=== PATIENT | female | born 1955 | race Caucasian/White ===

== ENCOUNTER 2019-12-02 10:49 | Emergency (ER) | payer OTHER ==
--- OUTSIDE RECORDS SUMMARY | 2019-12-02 10:51 | XMS REPORT | Clinical Summary ---
:1955 Author Organization [facility] Address [address] [place] [address] Care Team Providers Name Role Phone Zeinab English JUAN Primary Care Provider Allergies Active Allergy Reactions Severity Noted Date Comments Erythromycin Hives Medium 07/01/2016 Levofloxacin Other (See Comments) High 07/01/2016 Vomitin g and diarrhea Sulfa (Sulfonamide Rash Low 07/01/2016 Antibiotics) Tetracyclines Hives High 07/01/2016 Medications Medication Sig Dispensed Refills Start Date End Date Status ranitidine (ZANTAC) Take 150 mg by mouth 0 Active 150 MG as needed (every 8 capsuleIndications: hours- as Cirrhosis of liver antihistamine by without ascites, PCP). unspecified hepatic cirrhosis type (HCC), Screening for malignant neoplasm Active Problems Problem Noted Date Cirrhosis of liver without ascites 07/01/2016 Last Assessment & Plan: She has compensated cirrhosis diagnosed in March 2016 by MRI. Comprehensive work-up done by Dr. Mccarthy was negative for autoimmune, metabolic or viral causes of the liver diseases. Etiology is likely non-alcoholic fatty liver disease. Her risk factors are obesity and hypertension. S ynthetic function is somewhat preserved with INR 1.1. MELD-Na 9 (03/28/16). This is early for liver transplantation. Cirrhosis education done and resources provided. Portal hypertension 07/01/2016 Last Assessment & Plan: Manifested by splenomegaly on imaging. She does not have varices, ascites or HE. Varices, esophageal 07/01/2016 Last Assessment & Plan: EGD in March 2016 was negative for v arices. Obesity (BMI 35.0-39.9 without comorbidity) 07/01/2016 Last Assessment & Plan: The patient's current BMI is 39.08. Obe sity is an established risk factor for vascular complications (ie coronary iva ry disease, cerebrovascular disease, peripheral vascular disease), osteoarthr itis, pulmonary disease, as well as the development of non-alcoholic fatty liver disease and the risk for non-alcoholic steatohepatitis. We have recommended a structured weight loss program (10% body weight initially), along with dietary mo difications and regular exercise for overall good health and to minimize the risk of obesity-related complications. Constipation 07/01/2016 Last Assessment & Plan: Recommend miralax Immunity status testing 07/01/2016 Last Assessment & Plan: CDC recommends that all patients with chronic liver disease, regardless of etiology, should be immunized to prevent hepatitis A and hepatitis B if they are not already immune. This should be done in ad dition to other age-appropriate vaccines . We will test for immunity to both viruses - vaccine recommendations will follow. Screening for malignant neoplasm 07/01/2016 Last Assessment & Plan: Cirrhosis, regardless of etiology, is a risk factor for hepatocellular carcinoma (HCC), with an annual incidence of 1.5-7%. We recommend surveillance for HCC with abdominal imaging and alphafetoprotein every 6 months. MRI in April 2016 was negative for any suspicious lesions in the liver. AFP 03/28/16 is 4.0. Adrenal mass, left 07/01/2016 Last Assessment & Plan: 3.5 x 2.5 cm focus on the left adrenal g land reported on MRI in April 2016. This could be a left adrenal mass vs a divert iculum from the fundus of the stomach. This is likely benign. We will request the C D and review at the radiology conference. Further recommendations to follow. Family History Medical History Relation Name Comments Diabetes Brother Hypertension Brother Arthritis Brother COPD Brother Diabetes Father Heart disease Father Diabetes Mother Heart disease Mother Cancer Sister Relation Name Status Comments Brother Alive Brother Alive Father Mother Sister Social History Tobacco Use Types Packs/Day Years Used Date Former Smoker Smokeless Tobacco: Never Used Tobacco Cessation: Counseling Given: No Alcohol Use Drinks/Week oz/Week Comments Yes 0 Standard drinks or equivalent 0.0 social last drink 06/15/16 Sex Assigned at Date Recorded Not on file Job Start Date Occupation Industry Not on file Not on file Not on file Travel History Travel Start Travel End No recent travel history available. Last Filed Vital Signs Not on file Plan of Treatment Health Maintenance Due Date Last Done Comments BREAST CANCER SCREENING 1955 COLON CANCER SCREENING COLONOSCOPY 1955 CERVICAL CANCER SCREENING PAP ONLY (Age 21-65) 1975 PNEUMOCOCCAL 65+ LOW/MEDIUM RISK (1 of 2 - PCV13) 2019 INFLUENZA VACCINE (Season Ended) 2020 Results Not on fileafter 12/01/2018 Insurance Payer Benefit Plan / Group Subscriber ID Type Phone A ddress AETNA - MGD CARE AETNA HMO POS QPOS xxxxxxxxx HMO/POS
--- OUTSIDE RECORDS SUMMARY | 2019-12-02 10:51 | XMS REPORT | Clinical Summary ---
:1955 Author Organization [facility] Address [address] [place] [address] Care Team Providers Name Role Phone Nahun Leonard MD Primary Care Provider Allergies Not on File Medications Not on file Active Problems Not on file Social History Tobacco Use Types Packs/Day Years Used Date Never Assessed Sex Assigned at Date Recorded Not on file Job Start Date Occupation Industry Not on file Not on file Not on file Travel History Travel Start Travel End No recent travel history available. 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
--- OUTSIDE RECORDS SUMMARY | 2019-12-02 10:52 | XMS REPORT ---
:1955 Author Organization [employer] Care Team Providers Name Role Phone StewartLalita Provider Role Unavailable Allergies, Adverse Reactions, Alerts Substance Reaction Event Type Tetracycline HCl hives Drug Allergy Levaquin vomiting/diarrhea Drug Allergy Erythromycin vomiting/diarrhea Drug Allergy Problems Problem Type Condition Code Onset Dates Condition Statu s Assessment Hematuria, unspecified R31.9 Activ e Assessment Dysuria R30.0 Active Assessment Urinary tract infection, site not N39.0 Active specified Assessment Encounter for general adult medical Z00.01 Active examination with abnormal findings Problem Urinary tract infection, site not N39.0 Active specified Problem Encounter for general adult medical Z00.01 Active examination with abnormal findings Problem Dysuria R30.0 Active Problem Hematuria, unspecified R31.9 Activ e Problem GERD without esophagitis K21.9 Act rosalba Problem ARAUZ (nonalcoholic steatohepatitis) K75.81 Active Medications Medication Code Code Instructions Start End Date Status Dosage System Date Augmentin [facility] 60364017091 875-125 MG Aug 19, Aug 24, Active 1 table t Orally every 12 2019 2019 hrs Cimetidine [facility] [address]-09 200 MG Orally Active 1 tablet Once a day as needed Results Name Result Date Reference Range Unit Abnormali ty Flag URINALYSIS AUTO W/O SCOPE (96285) ----NIT Positive* 20190819 ----URO 2.0 20190819 ----PROTEIN 2+* 20190819 ----pH 6.5 20190819 ----BLO 2+* 20190819 ----GLUCOSE Negative 20190819 ----KAMILA 3* 20190819 ----BILIRUBIN 1+* 20190819 ----KETONES Trace* 20190819 ----SPECIFIC GRAVITY 1.020 20190819 Summary Purpose eClinicalWorks Submission
--- OUTSIDE RECORDS SUMMARY | 2019-12-02 10:52 | XMS REPORT ---
:1955 Author Organization [employer] Care Team Providers Name Role Phone Lalita Stewart Provider Role Unavailable Allergies No Known Allergies Problems Problem Type Condition Code Onset Dates Condition Statu s Problem Urinary tract infection, site not N39.0 Active specified Problem Encounter for general adult medical Z00.01 Active examination with abnormal findings Problem Dysuria R30.0 Active Problem Hematuria, unspecified R31.9 Activ e Problem GERD without esophagitis K21.9 Act rosalba Problem ARAUZ (nonalcoholic steatohepatitis) K75.81 Active Medications No Known Medications Results No Known Results Summary Purpose [employer]ClinicalWorks Submission
--- OUTSIDE RECORDS SUMMARY | 2019-12-02 10:52 | XMS REPORT ---
:1955 Author Organization [employer] Care Team Providers Name Role Phone Mitzy English Provider Role Unavailable Allergies No Known Allergies Problems Problem Type Condition Code Onset Dates Condition Statu s Assessment Hx: UTI (urinary tract infection) Z87.440 Active Problem Urinary tract infection, site not N39.0 Active specified Problem Encounter for general adult medical Z00.01 Active examination with abnormal findings Problem Acute cystitis with hematuria N30.01 Active Problem Hematuria, unspecified R31.9 Activ e Problem Dysuria R30.0 Active Problem GERD without esophagitis K21.9 Act rosalba Problem ARAUZ (nonalcoholic steatohepatitis) K75.81 Active Medications Medication Code System Code Instructions Start End Date Status Dos age Date Cimetidine [facility] 23474758196 200 MG Orally Active 1 t ablet Once a day as needed Results Name Result Date Reference Range Unit Abnormali ty Flag URINALYSIS AUTO W/O SCOPE (99247) ----NIT NEG 20190910 ----URO 1.0 20190910 ----PROTEIN 1+ 20190910 ----pH 6.0 20190910 ----BLO TR 20190910 ----GLUCOSE NEG 20190910 ----KAMILA NEG 20190910 ----BILIRUBIN 2+ 20190910 ----KETONES TR 20190910 ----SPECIFIC GRAVITY 1.025 20190910 Summary Purpose [employer]ClinicalWorks Submission
--- OUTSIDE RECORDS SUMMARY | 2019-12-02 10:52 | XMS REPORT ---
:1955 Author Organization [employer] Care Team Providers Name Role Phone Mitzy English Provider Role Unavailable Allergies, Adverse Reactions, Alerts Substance Reaction Event Type Tetracycline HCl hives Drug Allergy Levaquin vomiting/diarrhea Drug Allergy Erythromycin vomiting/diarrhea Drug Allergy Problems Problem Type Condition Code Onset Dates Condition Statu s Assessment Acute cystitis with hematuria N30.01 Active Assessment Dysuria R30.0 Active Problem Urinary tract infection, site not N39.0 Active specified Problem Encounter for general adult medical Z00.01 Active examination with abnormal findings Problem Acute cystitis with hematuria N30.01 Active Problem Hematuria, unspecified R31.9 Activ e Problem Dysuria R30.0 Active Problem GERD without esophagitis K21.9 Act rosalba Problem ARAUZ (nonalcoholic steatohepatitis) K75.81 Active Medications Medication Code Code Instructions Start End Status Dosage System Date Date Nitrofurantoin [facility] 32870124837 100 MG Orally Aug 31, Sep 07, Active 1 capsule Macrocrystal twice a day 2019 2019 with fo od or milk Cimetidine ND 09543093418 200 MG Orally Active 1 t ablet Once a day as needed Results Name Result Date Reference Range Unit Abnormali ty Flag Urine Culture, Routine Summary Purpose eClinicalWorks Submission
--- OUTSIDE RECORDS SUMMARY | 2019-12-02 10:52 | XMS REPORT ---
:1955 Author Organization [facility] t Address [address] [place] [address] Care Team Providers Name Role Phone KENROY FORTUNE Unavailable Unavailable Problems Condition Condition Condition Status Onset Resolution Last Treatin g Comments Name Details Category Date Date Treatment Clinician Date Hematuria, Hematuria, Problem Active unspecified unspecified Dysuria Dysuria Problem Active Urinary Urinary Problem Active tract tract infection, infection, site not site not specified specified Encounter Encounter Problem Active for general for general adult adult medical medical examination examination with with abnormal abnormal findings findings GERD GERD Problem Active without without esophagitis esophagitis ARAUZ ARAUZ Problem Active (nonalcohol (nonalcohol ic ic steatohepat steatohepat itis) itis) Acute Acute Problem Active cystitis cystitis with with hematuria hematuria Wheezing Wheezing Problem Active Allergies, Adverse Reactions, Alerts Allergy Name Allergy Status Severity Reaction(s) Onset Inactive Treat ing Comments Type Date Date Clinician Tetracycline Adverse Active hives HCl Reaction Erythromycin Adverse Active vomiting/jocy Reaction rrhea Levaquin Adverse Active vomiting/jocy Reaction rrhea Medications Ordered Filled Start Stop Current Ordering Indication Dosage Frequency Signature Comments Components Medication Medication Date Date Medication? Clinician (SIG) Name Name Albuterol Albuterol Yes Mitzy 1 puff as Sulfate HFA Sulfate HFA 11-03 Hinds needed 00:00: 00 Lactulose Lactulose Yes Mitzy 15 ml 11-02 Hinds 00:00: 00 Cimetidine Cimetidine Yes Mitzy 1 tablet Hinds as needed Encounters Start End Encounter Admission Attending Care Care Encounter Date/Time Date/Time Type Type Clinicians Facility Department ID 2019-11-03 2019-11-03 [id number] 13:20:00 13:20:00 [facility] Medicine 2019-09-10 2019-09-10 [id number] 09:30:00 09:30:00 [facility] 2019-08-31 2019-08-31 Outpatient [facility] 2 [id number] 08:00:00 08:00:00 [facility] 2019-08-24 2019-08-24 Outpatient [facility] 2 [id number] 10:41:00 10:41:00 [facility] 2019-08-19 2019-08-19 Outpatient [facility] 2 [id number] 13:00:00 13:00:00 [facility] Medicine Results Test Description Test Time Test Comments Text Results Atomic Results Result Comments CT, ABDOMEN, 2017-05-02 Referring: FINAL REPORT PATIENT ID: WITHOUT 15:58:[id number] OF THE ABDOMEN CLINICAL HISTORY: HCC screening, adrenal mass TECHNIQUE: CT of the abdomen is performed with and without intravenous contrast administration. This exam wa s performed according to our departmental dose-optimizati on program which includes automated exposure control, adjustment of the mA and/or kV according to patient size and/or use of iterative reconstruction technique. COMPARISON FILM: Outside CT of the abdomen from 08/20/2016 DISCUSSION: LOWER THORAX: Subsegmental bibasilar atelectasis and scarring. HEPATOBILIARY: Cirrhotic morphology of the liver. Farrah n portal vein is patent measur ing 1.5 cm. No concerning liver lesion.PANCREAS: No pancreat ic ductal dilation. No solid pancreatic lesion. SPLEEN: Spleen is enlarged measuring 14 cm in length. ADRENALS: Ther e is a 3 cm left adrenal nodul e which measures 30 Hounsfield units on the precontrast portion of this exam, 39 Hounsfield units on the port al venous phase, and 36 Hounsfi eld units on the five minute del ay. A 15 minute delay was not obtained. Based on these enhancement characteristics, this lesion remains indeterminate. Review of june or outside imaging from 08/20/19 17 suggests an absolute washout of 75%, suggesting that this lesion may represent an adenoma.KIDNEYS: No hydronephrosis or hydrourete r. No solid renal lesion. GI TRACT: No bowel wall thicken ing or distention. PERITONEUM/RETROPERITONEUM: No free fluid or free air.LYMPH NODES: No upper abdominal, retroperitoneal, mesenteric, or pelvic lymphadenopathy.VESSE LS: Abdominal aorta normal in caliber. BONES AND SOFT TISSUES: No destructive osse ous lesion. IMPRESSION: 1. Cirrhosis and splenomegaly without suspicious liver lesion. 2. The 3 cm left adrenal nodule is indetermin ate on the basis of the current examination, however prior outside imaging suggests bennie t this nodule may represent an adenoma. Advise attention on 3-6 month follow-up CT. Recommended including a 15 minute delay series to appropriately assess washout features. Signed: Rosalie Marinelli MDReport Verified Date/Time: 05/02/2017 15:58:35 Reading Location: [facility] B1 C[address]Y [address] [place] dy Reading Room W/PLT COUNT & AUTO DIFFERENTIAL 2016-10-23 17:30:00 Test Item Value Reference Range Comments WHITE BLOOD CELL COUNT (BEAKER) (test code = 775) 4.0 K/ L 4.0-10.0 RED BLOOD CELL COUNT (BEAKER) (test code = 761) 4.15 M/ L 4.00-5.00 HEMOGLOBIN (BEAKER) (test code = 410) 14.6 GM/DL 12.0-15.0 HEMATOCRIT (BEAKER) (test code = 411) 45.7 % 36.0-45.0 MEAN CORPUSCULAR VOLUME (BEAKER) (test code = 753) 110.0 fL 82.0-99.0 MEAN CORPUSCULAR HEMOGLOBIN (BEAKER) (test code = 751) 35.2 pg 27.0-33.0 MEAN CORPUSCULAR HEMOGLOBIN CONC (BEAKER) (test code = 752) 31.9 GM/DL 32.0-36.0 RED CELL DISTRIBUTION WIDTH (BEAKER) (test code = 412) 12.5 % 10.3-14.2 PLATELET COUNT (BEAKER) (test code = 756) 69 K/CU MM 150-43 0 MEAN PLATELET VOLUME (BEAKER) (test code = 754) 8.7 fL 6.5-10.5 NUCLEATED RED BLOOD CELLS (BEAKER) (test code = 413) 0 /100 WBC 0-0 NEUTROPHILS RELATIVE PERCENT (BEAKER) (test code = 429) 58 % LYMPHOCYTES RELATIVE PERCENT (BEAKER) (test code = 430) 27 % MONOCYTES RELATIVE PERCENT (BEAKER) (test code = 431) 9 % EOSINOPHILS RELATIVE PERCENT (BEAKER) (test code = 432) 5 % BASOPHILS RELATIVE PERCENT (BEAKER) (test code = 437) 1 % NEUTROPHILS ABSOLUTE COUNT (BEAKER) (test code = 670) 2.31 K/ L 1.80-8.00 LYMPHOCYTES ABSOLUTE COUNT (BEAKER) (test code = 414) 1.05 K/ L 1.48-4.50 MONOCYTES ABSOLUTE COUNT (BEAKER) (test code = 415) 0.37 K/ L 0.00-1.30 EOSINOPHILS ABSOLUTE COUNT (BEAKER) (test code = 416) 0.21 K/ L 0.00-0.50 BASOPHILS ABSOLUTE COUNT (BEAKER) (test code = 417) 0.02 K/ L 0.00-0.20 0.00ALPHA FETOPROTEIN (AFP), TUMOR [id number] 16:31:00 Test Item Value Reference Range Comments ALPHA-FETOPROTEIN (BEAKER) (test code = 1094) 3.3 ng/mL <1 0.0 Effective 06/14/2014: Reference Range ChangeNew: <10.0 Previous: 0.0-8.0 BASIC METABOLIC [id number] 16:13:00 Test Item Value Reference Range Comments SODIUM (BEAKER) (test 141 meq/L 136-145 code = 381) POTASSIUM (BEAKER) (test 4.0 meq/L 3.5-5.1 code = 379) CHLORIDE (BEAKER) (test 107 meq/L 98-107 code = 382) CO2 (BEAKER) (test code = 25 meq/L 22-29 355) BLOOD UREA NITROGEN 13 mg/dL 7-21 (BEAKER) (test code = 354) CREATININE (BEAKER) (test 0.74 mg/dL 0.57-1.25 code = 358) GLUCOSE RANDOM (BEAKER) 69 mg/dL 70-105 (test code = 652) CALCIUM (BEAKER) (test 8.9 mg/dL 8.4-10.2 code = 697) EGFR (BEAKER) (test code 80 mL/min/1.73 sq m EST IMATED GFR IS NOT = 1092) ACCURATE CREA TININE CLEARANCE IN PRE DICTING GLOMERULAR FILTR ATION RATE. ESTIMATED GFR IS NOT APPLICABLE F OR DIALYSIS PATIENT S. Specimen slightly ictericLIPID [id number] 16:13:00 Test Item Value Reference Range Comments TRIGLYCERIDES (BEAKER) (test code = 540) 77 mg/dL CHOLESTEROL (BEAKER) (test code = 631) 136 mg/dL HDL CHOLESTEROL (BEAKER) (test code = 976) 59 mg/dL LDL CHOLESTEROL CALCULATED (BEAKER) (test code = 62 mg/dL 633) Triglyceride Reference Range: Low Risk <150 Borderline 150-199 High Risk 200-499 Very High Risk >=500Cholesterol Reference Range: Low Risk <200 Borderline 200-239 High Risk >240HDL Cholesterol Reference Range: Low Risk >=60 High Risk <40LDL Cholesterol Reference Range: Optimal <100 Near Optimal 100-129 Borderline 130-159 High 160-189 Very High >=190 Specimen slightly ictericHEPATIC FUNCTION [id number] 16:13:00 Test Item Value Reference Range Comments TOTAL PROTEIN (BEAKER) (test code = 770) 7.1 gm/dL 6.0-8.3 ALBUMIN (BEAKER) (test code = 1145) 3.4 g/dL 3.5-5.0 BILIRUBIN TOTAL (BEAKER) (test code = 377) 1.9 mg/dL 0.2-1 .2 BILIRUBIN DIRECT (BEAKER) (test code = 706) 0.9 mg/dL 0.1- 0.5 ALKALINE PHOSPHATASE (BEAKER) (test code = 346) 108 U/L 40-150 AST (SGOT) (BEAKER) (test code = 353) 44 U/L 5-34 ALT (SGPT) (BEAKER) (test code = 347) 17 U/L 6-55 Specimen slightly ictericGAMMA GLUTAMYL TRANSFERASE (GGT)2016-10-23 16:13:00 Test Item Value Reference Range Comments GAMMA GLUTAMYL TRANSFERASE (BEAKER) (test code = 364) 60 U/L 9-64 Specimen slightly ictericPROTHROMBIN [id number] 16:13:00 Test Item Value Reference Range Comments PROTIME (BEAKER) (test code = 759) 14.4 seconds 11.7-14.7 INR (BEAKER) (test code = 370) 1.1 <=5.9 RECOMMENDED COUMADIN/WARFARIN INR THERAPY RANGESSTANDARD DOSE: 2.0 - 3.0 Includes: PROPHYLAXIS forvenous thrombosis, systemic embolization; TREATMENT for venous thrombosis and/or pulmonary embolus.HIGH RISK: Target INR is 2.5-3.5 for patients with mechanical heart valves.
--- OUTSIDE RECORDS SUMMARY | 2019-12-02 10:52 | XMS REPORT ---
:1955 Author Organization [employer] Care Team Providers Name Role Phone Mitzy English Provider Role Unavailable Allergies, Adverse Reactions, Alerts Substance Reaction Event Type Tetracycline HCl hives Drug Allergy Levaquin vomiting/diarrhea Drug Allergy Erythromycin vomiting/diarrhea Drug Allergy Problems Problem Type Condition Code Onset Dates Condition Statu s Assessment ARAUZ (nonalcoholic steatohepatitis) K75.81 Active Problem Hematuria, unspecified R31.9 Activ e Assessment Wheezing R06.2 Active Problem Acute cystitis with hematuria N30.01 Active Problem Dysuria R30.0 Active Problem Wheezing R06.2 Active Problem GERD without esophagitis K21.9 Act rosalba Problem ARAUZ (nonalcoholic steatohepatitis) K75.81 Active Problem Urinary tract infection, site not N39.0 Active specified Problem Encounter for general adult medical Z00.01 Active examination with abnormal findings Medications Medication Code Code Instructions Start End Date Status Dosage System Date Albuterol ND 55470419749 108 (90 Base) November 03, Active 1 puff as Sulfate HFA MCG/ACT 2020 needed Inhalation every 6 hrs Lactulose ND 03863326573 20 GM/30ML November 02, Active 15 ml Orally Once a 2020 day Cimetidine ND 75384795813 200 MG Orally Active 1 t ablet Once a day as needed Results Name Result Date Reference Range Unit Abnormali ty Flag Ammonia, Plasma ----Ammonia, Plasma 54 20191103 34-178 ug/dL Comp. Metabolic Panel (14) (CMP) ----Sodium 141 20191103 134-144 mmol/L ----BUN/Creatinine Ratio 12 20191103 12-28 ----Chloride 104 04123127 96-106 mmol/L ----Potassium 3.7 20191103 3.5-5.2 mmol/L ----Calcium 8.5 20191103 8.7-10.3 mg/dL L ----Protein, Total 5.6 20191103 6.0-8.5 g/dL L ----Carbon Dioxide, 22 59867915 20-29 mmol/L Total ----A/G Ratio 1.0 80578013 1.2-2.2 L ----eGFR If NonAfricn Am 84 85680670 >59 mL/min/1.73 ----Bilirubin, Total 4.3 09484716 0.0-1.2 mg/dL H ----eGFR If Africn Am 97 53188260 >59 mL/min/1.73 ----Albumin 2.8 51700434 3.8-4.8 g/dL L ----BUN 9 91447462 8-27 mg/dL ----Globulin, Total 2.8 74717922 1.5-4.5 g/dL ----Creatinine 0.75 45328083 0.57-1.00 mg/dL ----ALT (SGPT) 14 62119788 0-32 IU/L ----Glucose 80 79596512 65-99 mg/dL ----Alkaline Phosphatase 80 48433948 39-117 IU/L ----AST (SGOT) 45 65562495 0-40 IU/L H Summary Purpose eClinicalWorks Submission
[2019-12-02 12:08] LABS: Absolute Lymphocytes (CBC) 0.7 K/uL (0.7-4.9); Basophils % 0.5 % (0-1.3); Hematocrit 39.6 % (36.0-45.0); Lymphocytes % 17.9 % (15.3-44.8); MPV 9.4 fL (7.6-11.3); RBC Red Blood Cell Count 3.57 M/uL (3.86-4.86)
[2019-12-02 12:28] LABS: Albumin 2.4 g/dL (3.4-5.0); Bilirubin Direct 2.2 mg/dL (0-0.2); Potassium 3.1 mmol/L (3.5-5.1); Protein, Total 6.8 g/dL (6.4-8.2)
[2019-12-02 12:31] LABS: Bilirubin Total 5.7 mg/dL (0.2-1.0)
[2019-12-02 13:25] LABS: Anisocytosis 1+; Blood Morphology Comment NOTED (NOT SEEN); Platelet Estimate DECR; Urine White Blood Cell Casts OK
--- NOTE | 2019-12-02 13:37 | RAD REPORT ---
EXAM DESCRIPTION: CT - Abdomen Pelvis W Contrast - 12/02/2019 1:14 pm CLINICAL HISTORY: Rectal bleeding;Abd pain COMPARISON: Abdomen W/Wo Contrast dated 08/20/2016 TECHNIQUE: Biphasic, helical CT imaging of the abdomen and pelvis was performed following 100 ml non -ionic IV contrast. Oral contrast was given. All CT scans are performed using dose optimization technique as appropriate and may include automated exposure control or mA/KV adjustment according to patient size. FINDINGS: No suspicious findings in the lung bases. Subpleural fibrotic changes are present. No laurita cardial effusion. Liver is grossly abnormal. Liver is small in size with pronounced liver capsule nodularity. A focal l iver lesion is not identified. No portal vein thrombus. Clean is upper normal in size without a focal lesion. No pancreatic abnormality seen. The small gallbladder is seen. No biliary tree dilatation. Symmetric renal function is seen with no hydronephrosis or suspicious renal mass. No pyelonephritis o r acute parenchymal process. Urinary bladder is mostly contracted precluding assessment. No right adr enal gland abnormality. There is a 3.6 centimeter oval low-density mass in the region of the left adr enal gland. This is probably an adenoma. No change has occurred since 2017. Patient has a large volume of ascites. Numerous dilated veins are seen at the gastroesophageal juncti on and in the central upper abdomen. Distal esophageal diego do not appear thickened. Stomach is decompressed. No acute stomach or small b owel finding seen. There is mild edema in the cecum and ascending colon. Colon is mostly decompressed . No gross: Abnormality seen. Diverticulosis is minimal. No free air or pneumatosis. No mass or bulky lymphadenopathy. Fluid retention is seen in the subcu taneous fatty tissues of the abdomen. No suspicious bony findings. IMPRESSION: Advanced cirrhotic changes in the liver with no focal liver lesion identifiable. Large volume of ascites with numerous varices in the upper abdomen. Right-sided colon wall thickening or edema seen. This could be a metabolic edema related to the under lying cirrhosis and ascites. A right-sided colitis would be possible. An underlying mass lesion is no t seen.
[2019-12-02] MEDS ORDERED: POTASSIUM CL SA 10 MEQ TAB PO ONE (14:17)
--- NOTE | 2019-12-02 14:18 | EDPHYS ---
Physician Documentation [facility] Name: Oleksandr Christian Age: 64 yrs Sex: Female : 1955 Arrival Date: 12/02/2019 Time: 10:51 Bed 5 Private MD: Mitzy English ED Physician Epifanio Rogers HPI: 12/01 15:50 This 64 yrs old Female presents to ER via Wheelchair with complaints of kdr Rectal Bleeding. 15:50 The patient presents to the emergency department with bleeding from the rectum/anus, kdr that is moderate. Onset: The symptoms/episode began/occurred yesterday. Context: the patient has no known special context relating to the rectal area complaint(s), has a known history of hemorrhoids. Modifying factors: The symptoms are alleviated by nothing, The symptoms are aggravated by bowel movement. Associate signs and symptoms: Pertinent positives: lower GI bleeding, Weakness. The patient has not experienced similar symptoms in the past. The patient has not recently seen a physician. Historical: - Allergies: 11:46 Erythromycin; iw 11:46 Levaquin; iw 11:46 Sulfa (Sulfonamide Antibiotics); iw 11:46 TETRACYCLINES; iw - PMHx: 11:46 Anxiety; COPD; Hypertension; iw 11:52 ARAUZ; aa5 - PSHx: 11:46 Tonsillectomy; Hysterectomy; Knee surgery; iw - Immunization history:: Adult Immunizations not up to date. - Social history:: Smoking status: Patient/guardian denies using tobacco, the patient reports quitting approximately 13 years ago. ROS: 15:50 Constitutional: Negative for fever, chills, and weight loss, Eyes: Negative for injury, kdr pain, redness, and discharge, ENT: Negative for injury, pain, and discharge, Neck: Negative for injury, pain, and swelling, Cardiovascular: Negative for chest pain, palpitations, and edema, Respiratory: Negative for shortness of breath, cough, wheezing, and pleuritic chest pain, Back: Negative for injury and pain, : Negative for injury, bleeding, discharge, and swelling, MS/Extremity: Negative for injury and deformity, Skin: Negative for injury, rash, and discoloration, Neuro: Negative for headache, weakness, numbness, tingling, and seizure activity. Psych: Negative for depression, anxiety, suicide ideation, homicidal ideation, and hallucinations, Allergy/Immunology: Negative for hives, rash, and allergies, Endocrine: Negative for neck swelling, polydipsia, polyuria, polyphagia, and marked weight changes, Hematologic/Lymphatic: Negative for swollen nodes, abnormal bleeding, and unusual bruising. 15:50 Abdomen/GI: Positive for abdominal pain, nausea, diarrhea, rectal bleeding, Negative for abdominal cramps, abdominal distension, anorexia, dysphagia, hematemesis, black/tarry stool, bowel incontinence. Exam: 15:50 Constitutional: This is a well developed, well nourished patient who is awake, alert, kdr and in no acute distress. Head/Face: Normocephalic, atraumatic. Eyes: Pupils equal round and reactive to light, extra-ocular motions intact. Lids and lashes normal. Conjunctiva and sclera are non-icteric and not injected. Cornea within normal limits. Periorbital areas with no swelling, redness, or edema. Neck: Trachea midline, no thyromegaly or masses palpated, and no cervical lymphadenopathy. Supple, full range of motion without nuchal rigidity, or vertebral point tenderness. No Meningismus. Chest/axilla: Normal chest wall appearance and motion. Nontender with no deformity. No lesions are appreciated. Cardiovascular: Regular rate and rhythm with a normal S1 and S2. No gallops, murmurs, or rubs. Normal PMI, no JVD. No pulse deficits. Respiratory: Lungs have equal breath sounds bilaterally, clear to auscultation and percussion. No rales, rhonchi or wheezes noted. No increased work of breathing, no retractions or nasal flaring. Back: No spinal tenderness. No costovertebral tenderness. Full range of motion. Skin: Warm, dry with normal turgor. Normal color with no rashes, no lesions, and no evidence of cellulitis. MS/ Extremity: Pulses equal, no cyanosis. Neurovascular intact. Full, normal range of motion. Neuro: Awake and alert, GCS 15, oriented to person, place, time, and situation. Cranial nerves II-XII grossly intact. Motor strength 5/5 in all extremities. Sensory grossly intact. Cerebellar exam normal. Normal gait. Psych: Awake, alert, with orientation to person, place and time. Behavior, mood, and affect are within normal limits. 15:50 Abdomen/GI: Inspection: distension, that is mild, obese Bowel sounds: active, diminished, in all quadrants, Palpation: Firm but generally mildly tender throughout. Vital Signs: 11:42 BP 126 / 57; Pulse 84; Resp 16; Temp 98.4; Pulse Ox 98% on R/A; iw 14:24 BP 126 / 51; Pulse 73; Resp 14; Temp 98.3(O); Pulse Ox 96% on R/A; Pain 0/10; ls4 MDM: 14:18 Patient medically screened. kdr 15:50 Data reviewed: vital signs, nurses notes, lab test result(s), radiologic studies. kdr Counseling: I had a detailed discussion with the patient and/or guardian regarding: the historical points, exam findings, and any diagnostic results supporting the discharge/admit diagnosis, lab results, radiology results, the need for outpatient follow up. 12/01 11:23 Order name: Basic Metabolic Panel; Complete Time: 12:58 kdr 12/01 11:23 Order name: CBC with Diff; Complete Time: 13:51 kdr 12/01 11:23 Order name: Creatinine for Radiology; Complete Time: 12:58 kdr 12/01 11:23 Order name: Hepatic Function; Complete Time: 12:58 kdr 12/01 11:23 Order name: Lipase; Complete Time: 12:58 kdr 12/01 11:23 Order name: Type And Screen; Complete Time: 12:58 kdr 12/01 11:23 Order name: IV Saline Lock; Complete Time: 12:25 kdr 12/01 11:23 Order name: Labs collected and sent; Complete Time: 12:25 kdr 12/01 12:28 Order name: CBC Smear Scan; Complete Time: 13:51 EDMS 12/01 12:58 Order name: CT Abd/Pelvis - IV Contrast Only; Complete Time: 13:51 kdr Administered Medications: 14:14 Drug: Potassium Chloride 40 mEq Route: PO; ls4 Disposition: 12/02/19 14:18 Discharged to Home. Impression: Lower GI Bleeding. - Condition is Stable. - Discharge Instructions: Ascites, Weakness, Rywd-lq-Jeom, Rectal Bleeding, Rnfz-gf-Mktj. - Prescriptions for Flagyl 500 mg Oral Tablet - take 1 tablet by ORAL route every 6 hours for 10 days; 40 tablet. - Medication Reconciliation Form, Thank You Letter, Antibiotic Education form. - Follow up: Mitzy English; When: 2 - 3 days; Reason: If symptoms return, Further diagnostic work-up, Recheck today's complaints, Continuance of care, Re-evaluation by your physician. Follow up: Rowdy Mccarthy MD; When: 2 - 3 days; Reason: If symptoms return, Further diagnostic work-up, Recheck today's complaints, Continuance of care, Re-evaluation by your physician. - Problem is an ongoing problem. - Symptoms are unchanged. Signatures: Dispatcher [employer] EDMS Epifanio Rogers MD MD kdr Lauren Roca RN RN iw Nancy Macedo RN RN aa5 Maria R Cook RN RN ls4 Corrections: (The following items were deleted from the chart) 14:39 14:18 12/02/2019 14:18 Discharged to Home. Impression: Lower GI Bleeding. Condition is ls4 Stable. Forms are Medication Reconciliation Form, Thank You Letter, Antibiotic Education, Prescription Opioid Use. Follow up: Mitzy English; When: 2 - 3 days; Reason: If symptoms return, Further diagnostic work-up, Recheck today's complaints, Continuance of care, Re-evaluation by your physician. Follow up: Rowdy Mccarthy; When: 2 - 3 days; Reason: If symptoms return, Further diagnostic work-up, Recheck today's complaints, Continuance of care, Re-evaluation by your physician. Problem is an ongoing problem. Symptoms are unchanged. kdr
--- NOTE | 2019-12-02 14:18 | ER ---
Nurse's Notes [facility] Name: Oleksandr Christian Age: 64 yrs Sex: Female : 1955 Arrival Date: 12/02/2019 Time: 10:51 Bed 5 Private MD: Mitzy English Diagnosis: Lower GI Bleeding Presentation: 12/01 11:42 Chief complaint: Patient states: hx of diverticulitis and ARAUZ, had bright red blood in iw stool yesterday morning, 3-4 episodes throughout the day, felt faint this morning. Coronavirus screen: Proceed with normal triage. Patient denies a cough. Patient denies shortness of breath or difficulty breathing. Patient denies measured and/or subjective temperature greater than 100.4F prior to today's visit. Patient denies travel on a cruise ship or to a country [facility] currently lists as an affected area. Patient denies contact with known and/or suspected case of COVID-19. Ebola Screen: Patient negative for fever greater than or equal to 101.5 degrees Fahrenheit, and additional compatible Ebola Virus Disease symptoms Patient denies exposure to infectious person. Patient denies travel to an Ebola-affected area in the 21 days before illness onset. No symptoms or risks identified at this time. Initial Sepsis Screen: Does the patient meet any 2 criteria? No. Patient's initial sepsis screen is negative. Does the patient have a suspected source of infection? No. Patient's initial sepsis screen is negative. Risk Assessment: Do you want to hurt yourself or someone else? Patient reports no desire to harm self or others. Onset of symptoms was December 01, 2019. 11:42 Method Of Arrival: Wheelchair iw 11:42 Acuity: GAURI 3 iw Historical: - Allergies: 11:46 Erythromycin; iw 11:46 Levaquin; iw 11:46 Sulfa (Sulfonamide Antibiotics); iw 11:46 TETRACYCLINES; iw - PMHx: 11:46 Anxiety; COPD; Hypertension; iw 11:52 ARAUZ; aa5 - PSHx: 11:46 Tonsillectomy; Hysterectomy; Knee surgery; iw - Immunization history:: Adult Immunizations not up to date. - Social history:: Smoking status: Patient/guardian denies using tobacco, the patient reports quitting approximately 13 years ago. Screenin:50 Abuse screen: Denies threats or abuse. Nutritional screening: No deficits noted. aa5 Tuberculosis screening: No symptoms or risk factors identified. Fall Risk IV access (20 points). Total Seay Fall Scale indicates No Risk (0-24 pts). Assessment: 11:46 Reassessment: Pt currently in restroom . aa5 11:52 Reassessment: Pt placed in bed. Bright red rectal bleeding noted in toilet. . aa5 11:52 General: Appears comfortable, Behavior is calm, cooperative. Pain: Complains of pain in aa5 anus Pain does not radiate. Pain currently is 2 out of 10 on a pain scale. Quality of pain is described as aching, Pain began 1 day ago. Is continuous. Neuro: Level of Consciousness is awake, alert, obeys commands, Oriented to person, place, time, situation. Cardiovascular: Heart tones S1 S2 present Rhythm is regular. Respiratory: Airway is patent Respiratory effort is even, unlabored, Respiratory pattern is regular, symmetrical. GI: Abdomen is distended, Reports constipation, Reports last BM was 4 days ago. Pt states "I had to disimpact myself because I couldn't have a bowel movement". Pt reports bright red rectal bleeding began yesterday, pt states "before yesterday the bleeding was only when I wiped". Pt also reports decreased appetite. Patient currently denies nausea, vomiting. : No signs and/or symptoms were reported regarding the genitourinary system. EENT: No signs and/or symptoms were reported regarding the EENT system. Derm: Skin is dry, Skin is yellow, Skin temperature is warm. Musculoskeletal: Range of motion: intact in all extremities. 13:00 Reassessment: Pt to CT via wheelchair . aa5 14:15 Reassessment: Patient appears in no apparent distress at this time. Patient and/or ls4 family updated on plan of care and expected duration. Pain level reassessed. Patient is alert, oriented x 3, equal unlabored respirations, skin warm/dry/pink. Vital Signs: 11:42 BP 126 / 57; Pulse 84; Resp 16; Temp 98.4; Pulse Ox 98% on R/A; iw 14:24 BP 126 / 51; Pulse 73; Resp 14; Temp 98.3(O); Pulse Ox 96% on R/A; Pain 0/10; ls4 ED Course: 10:51 Patient arrived in ED. ag5 10:51 Mitzy English is Private Physician. ag5 10:53 Epifanio Rogers MD is Attending Physician. kdr 11:28 Nancy Macedo, RN is Primary Nurse. aa5 11:46 Triage completed. iw 11:47 Arm band placed on. iw 11:52 Patient has correct armband on for positive identification. Placed in gown. Bed in low aa5 position. Call light in reach. Side rails up X2. Pulse ox on. NIBP on. 11:52 Initial lab(s) drawn, by me, sent to lab. Inserted saline lock: 20 gauge in right aa5 antecubital area, using aseptic technique. Blood collected. 13:12 CT Abd/Pelvis - IV Contrast Only In Process Unspecified. EDMS 14:05 Report given to FRANCISCA Heck. aa5 14:15 Mitzy English is Referral Physician. kdr 14:15 Rowdy Mccarthy MD is Referral Physician. kdr 14:38 No provider procedures requiring assistance completed. IV discontinued, intact, ls4 bleeding controlled, No redness/swelling at site. Pressure dressing applied. Administered Medications: 14:14 Drug: Potassium Chloride 40 mEq Route: PO; ls4 Outcome: 14:18 Discharge ordered by MD. kdr 14:38 Discharged to home ambulatory. ls4 14:38 Condition: stable 14:38 Discharge instructions given to patient, Instructed on discharge instructions, follow up and referral plans. medication usage, safety practices, Demonstrated understanding of instructions, follow-up care, medications, Prescriptions given X 1. 14:39 Patient left the ED. ls4 Signatures: Dispatcher [employer] EDAL Epifanio Rogers MD MD kdr Lauren Roca RN RN iw Nancy Macedo, RN RN aa5 Maria R Cook RN RN ls4 Flako Tang ag5 Corrections: (The following items were deleted from the chart) 11:47 11:42 Chief complaint: Patient states: hx of diverticulitis and ARAUZ, had bright red iw blood in stool yesterday morning, 3-4 BM with blood throughout the day, felt faint this morning iw 13:56 11:52 Reassessment: Pt placed in bed. . aa5 aa5
[2019-12-03 02:55] VITALS: BP 126/51; TEMP 98.3; O2SAT 96
== END 2019-12-02 14:39 | disposition home or self-care (01) ==
LOC: ER 10:49
DX: K62.5 Hemorrhage of anus and rectum (principal); R53.1 Weakness; I10 Essential (primary) hypertension; Z88.1 Allergy status to other antibiotic agents; Z88.2 Allergy status to sulfonamides; Z88.3 Allergy status to other anti-infective agents
CPT/HCPCS: 85025; 80048; 36415; 86900; 86850; 86901; 80076; 83690; 74177; 99284; Q9967

== ENCOUNTER 2019-12-13 09:25 | Day surgery (SDC) | payer OTHER ==
[2019-12-13 10:18] VITALS: BMI 36.6
--- OUTSIDE RECORDS SUMMARY | 2019-12-13 10:39 | XMS REPORT | Clinical Summary ---
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
--- OUTSIDE RECORDS SUMMARY | 2019-12-13 10:39 | XMS REPORT | Clinical Summary ---
:1955 Author Organization [facility] Address [address] [place] [address] Care Team Providers Name Role Phone Zeinab [...] Signs Not on file Plan of Treatment Date Type Specialty Care Team Description 12/15/2019 Office Visit Hepatology Health Maintenance Due Date Last Done Comments BREAST CANCER SCREENING 1955 COLON CANCER SCREENING COLONOSCOPY 1955 CERVICAL CANCER SCREENING PAP ONLY (Age 21-65) 1975 PNEUMOCOCCAL 65+ LOW/MEDIUM RISK (1 of 2 - PCV13) 2019 INFLUENZA VACCINE (Season Ended) 2020 Results Not on fileafter 12/12/2018 Insurance Payer Benefit Plan / Subscriber ID Type Phone Address Group [employer] - [employer] C[employer] A[employer] HMO POS xxxxxxxxx HMO/POS QPOS AET[employer] - MEDICARE AETNA MEDICARE xxxxxxxx [phone] [address] [place] [address]
--- OUTSIDE RECORDS SUMMARY | 2019-12-13 10:40 | XMS REPORT ---
[...] End Status Dosage System Date Date Nitrofurantoin [facility] 75540229286 100 MG Orally Aug 31, Sep 07, Active 1 capsule Macrocrystal twice a day 2019 2019 with fo od or milk Cimetidine ND 34391536228 200 MG Orally Active 1 t ablet Once a day as needed Results Name Result Date Reference Range Unit Abnormali ty Flag Urine Culture, Routine Summary Purpose eClinicalWorks Submission
--- OUTSIDE RECORDS SUMMARY | 2019-12-13 10:40 | XMS REPORT ---
[...] End Date Status Dos age Date Cimetidine [facility] 42581013151 200 MG Orally Active 1 t ablet Once a day as needed Results Name Result Date Reference Range Unit Abnormali ty Flag URINALYSIS AUTO W/O SCOPE (71337) ----NIT NEG 20190910 ----URO 1.0 20190910 ----PROTEIN 1+ 20190910 ----pH 6.0 20190910 ----BLO TR 20190910 ----GLUCOSE NEG 20190910 ----KAMILA NEG 20190910 ----BILIRUBIN 2+ 20190910 ----KETONES TR 20190910 ----SPECIFIC GRAVITY 1.025 20190910 Summary Purpose eClinicalWorks Submission
--- OUTSIDE RECORDS SUMMARY | 2019-12-13 10:40 | XMS REPORT ---
[...] End Date Status Dosage System Date Augmentin [facility] [id number] 875-125 MG Aug 19, Aug 24, Active 1 table t Orally every 12 2019 2019 hrs Cimetidine [facility] [address]-89 200 MG Orally Active 1 tablet Once a day as needed Results Name Result Date Reference Range Unit Abnormali ty Flag URINALYSIS AUTO W/O SCOPE (11336) ----NIT Positive* 20190819 ----URO 2.0 20190819 ----PROTEIN 2+* 20190819 ----pH 6.5 20190819 ----BLO 2+* 20190819 ----GLUCOSE Negative 20190819 ----KAMILA 3* 20190819 ----BILIRUBIN 1+* 20190819 ----KETONES Trace* 20190819 ----SPECIFIC GRAVITY 1.020 20190819 Summary Purpose eClinicalWorks Submission
--- OUTSIDE RECORDS SUMMARY | 2019-12-13 10:40 | XMS REPORT ---
:1955 Author Organization [facility] t Address [address] [place] [address] Care Team Providers Name Role Phone Nahun Leonard MD Primary Care Physician KENROY FORTUNE Attending Clinician Unavailable Problems Condition Condition Condition Status Onset Resolution Last Treating Co mments Source Name Details Category Date Date Treatment Clinician Date Hematuria, Hematuria, Problem Active [facility] unspecifie unspecifie Fe kes [facility] Dysuria Dysuria Problem [facility] Urinary Urinary Problem Active [facility] tract tract [facility] - infection, infection, Me moria site not site not l specified specified Outp ati ent Clinics Encounter Encounter Problem Active [facility] for for [facility] - general general [facility] adult adult l medical medical Outpati examinatio examinatio en t n with n with Clinics abnormal abnormal findings findings GERD GERD Problem Active [facility] without without [facility] - esophagiti esophagiti Me moria s s l Outpati ent Clinics ARAUZ ARAUZ Problem Active [facility] (nonalcoho (nonalcoho Fe kes - lic lic Memoria steatohepa steatohepa l titis) titis) Outpati ent Clinics Acute Acute Problem Active [facility] cystitis cystitis [facility] - with with [facility] hematuria hematuria l Outpati ent Clinics Wheezing Wheezing Problem [facility] Allergies, Adverse Reactions, Alerts Allergy Allergy Status Severity Reaction(s) Onset Inactive Treating Comm ents Source Name Type Date Date Clinician Tetracyc Adverse Active hives [facility] line HCl Reaction [facility] Erythrom Adverse Active vomiting/jocy [facility] ycin Reaction rrhea [facility] Levaquin Adverse Active vomiting/jocy [facility] Reaction rrhea [facility] Social History Social Habit Start Date Stop Date Quantity Comments Source Sex Assigned At [facility] Medications Ordered Filled Start Stop Current Ordering Indication Dosage Frequency Signature Comments Components Source Medication Medication Date Date Medication? Clinician (SIG) Name Name Albuterol Albuterol Yes Mitzy [address] [facility] Sulfate HFA Sulfate HFA 4-09 [place] needed [facility] - [facility]: [facility] 00 [facility] Lactulose Lactulose Yes Mitzy [address] 4-08 [place] [facility] - [facility] 00 [facility]ics Cimetidine Cimetidine Yes Mitzy [address] [facility] [place] as needed [facility] Procedures This patient has no known procedures. Plan of Care Planned Activity Planned Date Details Comments Source Future Scheduled 2020-02-26 INFLUENZA VACCINE [facility] Test 00:00:00 [code = INFLUENZA VACCINE] Future Scheduled 2019 65+ PNEUMOCOCCAL [facility] Test 00:00:00 VACCINE (1 of 2 - PCV13) [code = 65+ PNEUMOCOCCAL VACCINE (1 of 2 - PCV13)] Future Scheduled 2004 BREAST CANCER [facility] Test 00:00:00 SCREENING [code = BREAST CANCER SCREENING] Future Scheduled 2004 COLONOSCOPY SCREENING [facility] Test 00:00:00 [code = COLONOSCOPY SCREENING] Future Scheduled 2004 SHINGLES VACCINES (#1) [facility] Test 00:00:00 [code = SHINGLES VACCINES (#1)] Future Scheduled [facility] malignant neoplasm of cervix (procedure) [code = 334800375] Encounters Start End Encounter Admission Attending Care Care Encounter Source Date/Time Date/Time Type Type Clinicians Facility Department ID 2019-11-03 2019-11-03 Outpatient Rafia Sanford [id number] [facility] 13:20[facility]00 13:20:00 [facility] Medicine [facility] 2019-09-10 2019-09-10 Outpatient Rafia Sanford [id number] [address] 09[facility]30[facility]00 09:30:00 [facility] 2019-08-31 2019-08-31 Outpatient Rafia Moratayat [id number] 08:00:00 08:00:00 [facility] 2019-08-24 2019-08-24 Outpatient Rafia Moratayat [id number] [address] 10:41:00 10:41:00 [facility] 2019-08-19 2019-08-19 Outpatient Rafia Moratayat [id number] [address] 13:00:00 13:00:00 [facility] Results Test Description Test Time Test Comments Results Result Nicola chrissie Comments CT, ABDOMEN, 2017-05-02 Referring: FINAL REPORT PATIENT WITHOUT 15:58:00 [facility] ID: [id number] CT OF THE ABDOMEN CLINICAL HISTORY: HCC screening, adrenal mass TECHNIQUE: CT of the abdomen is performed with and without intravenous contrast administration. This exam was performed according to our departmental dose-optimization program which includes automated exposure control, adjustment of the mA and/or kV according to patient size and/or use of iterative reconstruction technique. COMPARISON FILM: Outside CT of the abdomen from 08/20/2016 DISCUSSION: LOWER THORAX: Subsegmental bibasilar atelectasis and scarring. HEPATOBILIARY: Cirrhotic morphology of the liver. Main portal vein is patent measuring 1.5 cm. No concerning liver lesion.PANCREAS: No pancreatic ductal dilation. No solid pancreatic lesion. SPLEEN: Spleen is enlarged measuring 14 cm in length. ADRENALS: There is a 3 cm left adrenal nodule which measures 30 Hounsfield units on the precontrast portion of this exam, 39 Hounsfield units on the portal venous phase, and 36 Hounsfield units on the five minute delay. A 15 minute delay was not obtained. Based on these enhancement characteristics, this lesion remains indeterminate. Review of prior outside imaging from 08/20/2016 suggests an absolute washout of 75%, suggesting that this lesion may represent an adenoma.KIDNEYS: No hydronephrosis or hydroureter. No solid renal lesion. GI TRACT: No bowel wall thickening or distention. PERITONEUM/RETROPERI TONEUM: No free fluid or free air.LYMPH NODES: No upper abdominal, retroperitoneal, mesenteric, or pelvic lymphadenopathy.VESS ELS: Abdominal aorta normal in caliber. BONES AND SOFT TISSUES: No destructive osseous lesion. IMPRESSION: 1. Cirrhosis and splenomegaly without suspicious liver lesion. 2. The 3 cm left adrenal nodule is indeterminate on the basis of the current examination, however prior outside imaging suggests that this nodule may represent an adenoma. Advise attention on 3-6 month follow-up CT. Recommended including a 15 minute delay series to appropriately assess washout features. Signed: Sohail Marinelli MDReport Verified Date/Time: 05/02/2017 15:58:35 Reading Location: [facility] C013Y CT Body Reading Room W/PLT COUNT & AUTO DIFFERENTIAL 2016-10-23 17:30:00 Test Item Value Reference Range Interpretation Comme nts WHITE BLOOD CELL COUNT (BEAKER) (test code = 775) 4.0 K/ L 4.0- 10.0 RED BLOOD CELL COUNT (BEAKER) (test code = 761) 4.15 M/ L 4.00-5 .00 HEMOGLOBIN (BEAKER) (test code = 410) 14.6 GM/DL 12.0-15.0 HEMATOCRIT (BEAKER) (test code = 411) 45.7 % 36.0-45.0 H MEAN CORPUSCULAR VOLUME (BEAKER) (test code = 753) 110.0 fL 82. 0-99.0 H MEAN CORPUSCULAR HEMOGLOBIN (BEAKER) (test code = 751) 35.2 pg 27.0-33.0 H MEAN CORPUSCULAR HEMOGLOBIN CONC (BEAKER) (test code = 752) 31.9 GM/DL 32.0-36.0 L RED CELL DISTRIBUTION WIDTH (BEAKER) (test code = 412) 12.5 % 10.3-14.2 PLATELET COUNT (BEAKER) (test code = 756) 69 K/CU MM 150-430 L MEAN PLATELET VOLUME (BEAKER) (test code = 754) 8.7 fL 6.5-10 .5 NUCLEATED RED BLOOD CELLS (BEAKER) (test code = 413) 0 /100 WBC 0 -0 NEUTROPHILS RELATIVE PERCENT (BEAKER) (test code = [...] code = 414) 1.05 K/ L 1.48-4.50 L MONOCYTES ABSOLUTE COUNT (BEAKER) (test code = 415) 0.37 K/ L 0. 00-1.30 EOSINOPHILS ABSOLUTE COUNT (BEAKER) (test code = 416) 0.21 K/ L 0.00-0.50 BASOPHILS ABSOLUTE COUNT (BEAKER) (test code = 417) 0.02 K/ L 0. 00-0.20 0.00ALPHA FETOPROTEIN (AFP), TUMOR [id number] 16:31:00 Test Item Value Reference Range Interpretation Comments ALPHA-FETOPROTEIN (BEAKER) (test 3.3 ng/mL <10.0 code = 1094) Effective 06/14/2014: Reference Range ChangeNew: <10.0 Previous: 0.0-8.0 BASIC METABOLIC [id number] 16:13:00 Test Item Value Reference Range Interpretation Comments SODIUM (BEAKER) 141 meq/L 136-145 (test code = 381) POTASSIUM (BEAKER) 4.0 meq/L 3.5-5.1 (test code = 379) CHLORIDE (BEAKER) 107 meq/L 98-107 (test code = 382) CO2 (BEAKER) (test 25 meq/L 22-29 code = 355) BLOOD UREA NITROGEN 13 mg/dL 7-21 (BEAKER) (test code = 354) CREATININE (BEAKER) 0.74 mg/dL 0.57-1.25 (test code = 358) GLUCOSE RANDOM 69 mg/dL 70-105 L (BEAKER) (test code = 652) CALCIUM (BEAKER) 8.9 mg/dL 8.4-10.2 (test code = 697) EGFR (BEAKER) (test 80 mL/min/1.73 ESTIMA JERAMY GFR IS code = 1092) sq m NOT ACCURATE CREATININE CLEARANCE IN PREDICTING GLOMERULAR FILTRATION RATE . ESTIMATED GFR I S NOT APPLICABLE FOR DIALYSIS PATIEN TS. Specimen slightly ictericLIPID [id number] 16:13:00 Test Item Value Reference Range Interpretation Comments TRIGLYCERIDES (BEAKER) (test code = 77 mg/dL 540) CHOLESTEROL (BEAKER) (test code = 136 mg/dL 631) HDL CHOLESTEROL (BEAKER) (test code 59 mg/dL = 976) LDL CHOLESTEROL CALCULATED (BEAKER) 62 mg/dL (test code = 633) Triglyceride Reference Range: Low Risk <150 Borderline 150-199 High Risk 200-499 Very High Risk >=500Cholesterol Reference Range: Low Risk <200 Borderline 200-239 High Risk >240HDL Cholesterol Reference Range: Low Risk >=60 High Risk <40LDL Cholesterol Reference Range: Optimal <100 Near Optimal 100-129 Borderline 130-159 High 160-189 Very High >=190 Specimen slightly ictericHEPATIC FUNCTION [id number] 16:13:00 Test Item Value Reference Range Interpretation Comments TOTAL PROTEIN (BEAKER) (test code = 7.1 gm/dL 6.0-8.3 770) ALBUMIN (BEAKER) (test code = 1145) 3.4 g/dL 3.5-5.0 L BILIRUBIN TOTAL (BEAKER) (test code 1.9 mg/dL 0.2-1.2 H = 377) BILIRUBIN DIRECT (BEAKER) (test 0.9 mg/dL 0.1-0.5 H code = 706) ALKALINE PHOSPHATASE (BEAKER) (test 108 U/L 40-150 code = 346) AST (SGOT) (BEAKER) (test code = 44 U/L 5-34 H 353) ALT (SGPT) (BEAKER) (test code = 17 U/L 6-55 347) Specimen slightly ictericGAMMA GLUTAMYL TRANSFERASE (GGT)2016-10-23 16:13:00 Test Item Value Reference Range Interpretation Comments GAMMA GLUTAMYL TRANSFERASE (BEAKER) 60 U/L 9-64 (test code = 364) Specimen slightly ictericPROTHROMBIN [id number] 16:13:00 Test Item Value Reference Range Interpretation Comments PROTIME (BEAKER) (test code = 14.4 seconds 11.7-14.7 759) INR (BEAKER) (test code = 370) 1.1 <=5.9 RECOMMENDED COUMADIN/WARFARIN INR THERAPY RANGESSTANDARD DOSE: 2.0 - 3.0 Includes: PROPHYLAXIS forvenous thrombosis, systemic embolization; TREATMENT for venous thrombosis and/or pulmonary embolus.HIGH RISK: Target INR is 2.5-3.5 for patients with mechanical heart valves.
--- OUTSIDE RECORDS SUMMARY | 2019-12-13 10:41 | XMS REPORT ---
[...] Date Status Dosage System Date Albuterol ND 09319099048 108 (90 Base) November 03, Active 1 puff as Sulfate HFA MCG/ACT 2020 needed Inhalation every 6 hrs Lactulose ND 20896674968 20 GM/30ML November 02, Active 15 ml Orally Once a 2020 day Cimetidine ND 33038560051 200 MG Orally Active 1 t ablet Once a day as needed Results Name Result Date Reference Range Unit Abnormali ty Flag Ammonia, Plasma ----Ammonia, Plasma 54 20191103 34-178 ug/dL Comp. Metabolic Panel (14) (CMP) ----Sodium 141 20191103 134-144 mmol/L ----BUN/Creatinine Ratio 12 20191103 12-28 ----Chloride 104 06393688 96-106 mmol/L ----Potassium 3.7 20191103 3.5-5.2 mmol/L ----Calcium 8.5 20191103 8.7-10.3 mg/dL L ----Protein, Total 5.6 20191103 6.0-8.5 g/dL L ----Carbon Dioxide, 22 48843068 20-29 mmol/L Total ----A/G Ratio 1.0 17102659 1.2-2.2 L ----eGFR If NonAfricn Am 84 81003192 >59 mL/min/1.73 ----Bilirubin, Total 4.3 35208306 0.0-1.2 mg/dL H ----eGFR If Africn Am 97 25063540 >59 mL/min/1.73 ----Albumin 2.8 75876991 3.8-4.8 g/dL L ----BUN 9 03672653 8-27 mg/dL ----Globulin, Total 2.8 74363264 1.5-4.5 g/dL ----Creatinine 0.75 58950396 0.57-1.00 mg/dL ----ALT (SGPT) 14 65448713 0-32 IU/L ----Glucose 80 74683369 65-99 mg/dL ----Alkaline Phosphatase 80 87636328 39-117 IU/L ----AST (SGOT) 45 09102504 0-40 IU/L H Summary Purpose eClinicalWorks Submission
[2019-12-13] MEDS ORDERED: ALBUMIN HUMAN 25% 300 ML IV ONE (12:09)
--- NOTE | 2019-12-13 12:39 | RAD REPORT ---
EXAM DESCRIPTION: US - Paracentesis Proc Guidance - 12/13/2019 10:51 am CLINICAL HISTORY: Ascites COMPARISON: None. TECHNIQUE: The patient presents for ultrasound-guided paracentesis. The procedure, risks and altern atives were discussed with the patient in detail. Oral and written consent were obtained. Time out p rocedure was performed. The patient had no contraindicated allergy or medication history. PT, INR va lues within acceptable limits. Preliminary sonographic evaluation identified right lower quadrant access site. The skin and deeper tissues were anesthetized with 1 percent lidocaine. Under direct sonographic visualization, a parace ntesis catheter was advanced into the peritoneal cavity. Approximately 10 mL of ascites retained for requested laboratory studies. Large volume drainage was initiated. Approximately 6.5 liters of ascite s removed. At the conclusion of the procedure, catheter was withdrawn and a bandage placed at the puncture site. Postprocedure care and precaution instructions were given to the patient. Patient was transferred t o same-day surgery for postprocedure monitoring and albumin infusion as requested by the referring ysician. IMPRESSION: Ultrasound-guided paracentesis as detailed.
[2019-12-13 14:13] VITALS: BP 99/37; TEMP 97; O2SAT 99
[2019-12-13 14:19] LABS: Body Fluid WBC 103 /mm^3
[2019-12-13 14:27] LABS: Appearance CLEAR (CLEAR); Body Fluid Source PERITONEAL; Color of fluid Yellow (COLORLESS)
== END 2019-12-13 13:15 | disposition home or self-care (01) ==
LOC: DS 09:25
PROVIDERS: ATTEND Internal Medicine Gastroenterology
PROC: 0W9G30Z Drainage of Peritoneal Cavity with Drainage Device, Percutaneous Approach (ICD-10-PCS; principal; 2019-12-13)
DX: K70.31 Alcoholic cirrhosis of liver with ascites (principal); K70.0 Alcoholic fatty liver; K74.69 Other cirrhosis of liver; R93.3 Abnormal findings on diagnostic imaging of other parts of digestive tract
CPT/HCPCS: 87070; 36415; 89050; 96365; 49083; 96366; P9047

== ENCOUNTER 2020-01-14 10:17 | Emergency (ER) | payer OTHER ==
--- OUTSIDE RECORDS SUMMARY | 2020-01-14 10:20 | XMS REPORT | Clinical Summary ---
:1955 Author Organization [facility] Address [address] [place] [address] Care Team Providers Name Role Phone Nahun [...] INFLUENZA VACCINE 02/26/2020 Results Not on fileafter 01/13/2019 Advance Directives For more information, please contact: [phone] Type Date Recorded Patient Zanjero Explanati on Advance Directives, Living Will and Medical Power of Extractions Technologist
--- OUTSIDE RECORDS SUMMARY | 2020-01-14 10:21 | XMS REPORT | Clinical Summary ---
:1955 Author Organization [facility] Address [address] [place] [address] Care Team Providers Name Role Phone Zeinab English JUAN Primary Care Provider Allergies Active Allergy Reactions Severity Noted Date Comments Erythromycin Hives Medium 07/01/2016 Levofloxacin Other (See Comments) High 07/01/2016 Vomitin g and diarrhea Sulfa (Sulfonamide Rash Low 07/01/2016 Antibiotics) Tetracyclines Hives High 07/01/2016 Medications Medication Sig Dispensed Refills Start Date End Date Status ranitidine (ZANTAC) Take 150 mg by 0 Active 150 MG mouth as needed capsuleIndications: (every 8 hours- as Cirrhosis of liver antihistamine by without ascites, PCP). unspecified hepatic cirrhosis type (HCC), Screening for malignant neoplasm furosemide (LASIX) 20 Take 40 mg by mouth 0 Active MG tablet 2 (two) times daily . spironolactone Take 25 mg by mouth 0 Active (ALDACTONE) 25 MG daily. tablet calcitrioL Take 0.5 mcg by 0 Act rosalba (ROCALTROL) 0.5 MCG mouth daily. capsule Active Problems Problem Noted Date Elevated serum creatinine 01/11/2020 Other ascites 01/11/2020 Cirrhosis of liver without ascites 07/01/2016 Last [...] the radiology conference. Further recommendations to follow. Encounters Date Type Specialty Care Team Description 01/07/2020 Abstract Transplant Cary Talley Hepatology R, RN 01/07/2020 Orders Only Transplant Cary Talley Screening for malignant neoplasm (Primary Dx); Hepatology R, RN Encounter for p re-transplant evaluation for liver transplant; Left adrenal ma ss (HCC); 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, unspecified hepatic cirrhosis type (HCC); Screening for e ndocrine, nutritional, metabolic and immunity disorder; Immunity status testing; Encounter for s creening mammogram for malignant neoplasm of breast ; Liver disease, unspecified ; Abnormal findin g of blood chemistry, unspecified ; Other abnormal tumor markers ; Encounter for s creening for other viral diseases ; Asymptomatic me nopausal state ; Encounter for p reprocedural cardiovascular examination 01/04/2020 Abstract Transplant Rito Saini Hepatology Ildefonso Spencer MD 01/03/2020 Office Visit Hepatology Sean, 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, unspecified hepatic cirrhosis type (HCC) (Primary Dx); Mike Armando Portal hypert ension ; Secondary esophageal varices without ble eding (HCC); Kadie Larry Obesity (BMI 35.0-39.9 without comorbidity); [place], [employer] Adrenal mass, l eft ; Screening for m alignant neoplasm; Elevated serum creatinine; Other ascites 12/31/2019 Telephone Hepatology Dai Healy MA 12/21/2019 Documentation Hepatology Kadie Larry FNP 12/17/2019 Abstract Hepatology Ivanna Healy MA 12/16/2019 Abstract Hepatology Janna Aparicio RN 12/16/2019 Abstract Hepatology Janna Aparicio RN 12/16/2019 Abstract Hepatology Janna Aparicio RN 12/15/2019 Audio - Telemedicine Hepatology Kadie Larry Benny l hypertension (Primary Dx); 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 Last Filed Vital Signs Vital Sign Reading Time Taken Blood Pressure 112/71 01/03/2020 1:45 PM CDT Pulse 94 01/03/2020 1:45 PM CDT Temperature 36.4 C (97.5 F) 01/03/2020 1:45 PM CDT Respiratory Rate 18 01/03/2020 1:45 PM CDT Oxygen Saturation 97% 01/03/2020 1:45 PM CDT Inhaled Oxygen Concentration - - Weight 93 kg (205 lb) 01/03/2020 1:45 PM CDT Height 162.6 cm (5' 4") 01/03/2020 1:45 PM CDT Body Mass Index 35.19 01/03/2020 1:45 PM CDT Plan of Treatment Date Type Specialty Care Team Description 04/07/2020 Office Visit Hepatology Health Maintenance Due Date Last Done Comments BREAST CANCER SCREENING 1955 COLON CANCER SCREENING COLONOSCOPY 1955 CERVICAL CANCER SCREENING PAP ONLY (Age 21-65) 1975 PNEUMOCOCCAL 65+ LOW/MEDIUM RISK (1 of 2 - PCV13) 2019 Medicare IPPE (WELCOME TO MEDICARE) 07/28/2019 INFLUENZA VACCINE (Season Ended) 2020 Procedures Procedure Name Priority Date/Time Associated Diagnosis Comme nts CBC W/PLT COUNT & Routine 01/03/2020 2:34 Cirrhosis of liver Results for this AUTO DIFFERENTIAL PM CDT without ascites, proced ure are in unspecified hepatic the resu lts cirrhosis type (HCC) section . ALPHA FETOPROTEIN Routine 01/03/2020 2:34 Cirrhosis of liver Results for this (AFP), TUMOR MARKER PM CDT without ascites, proc edure are in unspecified hepatic the resu lts cirrhosis type (HCC) section . PROTHROMBIN TIME/INR Routine 01/03/2020 2:34 Cirrhosis of gerber er Results for this PM CDT without ascites, procedure a re in unspecified hepatic the resu lts cirrhosis type (HCC) section . CBC W/PLT COUNT & Routine 01/03/2020 2:34 Cirrhosis of liver Results for this AUTO DIFFERENTIAL PM CDT without ascites, proced ure are in unspecified hepatic the resu lts cirrhosis type (HCC) section . HEPATIC FUNCTION Routine 01/03/2020 2:34 Cirrhosis of liver R esults for this PANEL PM CDT without ascites, procedure a re in unspecified hepatic the resu lts cirrhosis type (HCC) section . BASIC METABOLIC PANEL Routine 01/03/2020 2:34 Cirrhosis of li sloan Results for this (7) PM CDT without ascites, procedure a re in unspecified hepatic the resu lts cirrhosis type (HCC) section . after 01/13/2019 Results CBC with platelet count + automated diff (01/03/2020 2:34 PM CDT) WBC 4.4 3.5 - 10.5 K/L [facility] RBC 2.41 (L) 3.93 - 5.22 M/L [facility] Hemoglobin 9.6 (L) 11.2 - 15.7 GM/DL [facility] Hematocrit 28.9 (L) 34.1 - 44.9 % [facility] MCV 119.9 (H) 79.4 - 94.8 fL [facility] MCH 39.8 (H) 25.6 - 32.2 pg [facility] MCHC 33.2 32.2 - 35.5 GM/DL [facility] RDW 17.4 (H) 11.7 - 14.4 % [facility] Platelets 93 (L) 150 - 450 K/CU MM [facility] MPV 9.9 9.4 - 12.3 fL [facility] nRBC 0 0 - 0 /100 WBC [facility] % Neutros 59 % [facility] % Lymphs 21 % [facility] % Monos 11 % [facility] % Eos 7 % [facility] % Baso 1 % [facility] # Neutros 2.60 1.56 - 6.13 K/L [facility] # Lymphs 0.91 (L) 1.18 - 3.74 K/L [facility] # Monos 0.50 (H) 0.24 - 0.36 K/L [facility] # Eos 0.29 0.04 - 0.36 K/L [facility] # Baso 0.03 0.01 - 0.08 K/L [facility] Immature 1 0 - 1 % [facility] Granulocytes-Relative MEDICAL CE NTER Specimen Blood Performing Organization Address City/[facility]/Zipcode Phone Number [address] [address] CENTER Alpha fetoprotein (AFP), tumor marker (01/03/2020 2:34 PM CDT) Alpha-Fetoprotein <2.0 <10.0 ng/mL [facility] Specimen Blood Narrative Performed At Plug Wirer ID - DB [facility] Performing Organization Address City/State/Zipcode Phone Number [address] [address] CENTER Pro-time/INR (01/03/2020 2:34 PM CDT) Protime 18.4 (H) 11.9 - 14.2 seconds [facility] INR 1.6 <=5.9 [facility] Specimen Blood Narrative Performed At Effective 12/23/2018: PT Reference Range [facility] Change New: 11.9-14.2Previous: 11.7-14.7 RECOMMENDED COUMADIN/WARFARIN INR THERAPY RANGES STANDARD DOSE: 2.0-3.0Includes: PROPHYLAXIS for venous thrombosis, systemic embolization; TREATMENT for venous thrombosis and/or pulmonary embolus. HIGH RISK: Target INR is 2.5-3.5 for patients wiht mechanical heart valves. Please sent STAT Performing Organization Address City/State/Zipcode Phone Number [facility] [address] [place] [address] [place] Hepatic function panel (01/03/2020 2:34 PM CDT) Protein, Total 6.2 6.0 - 8.3 gm/dL [facility] Albumin 2.6 (L) 3.5 - 5.0 g/dL [facility] Total Bilirubin 4.8 (H) 0.2 - 1.2 mg/dL [facility] Bilirubin, Direct 2.0 (H) 0.1 - 0.5 mg/dL [facility] Alkaline Phosphatase 81 40 - 150 U/L [facility] AST 48 (H) 5 - 34 U/L [facility] ALT 17 6 - 55 U/L [facility] Specimen Blood Narrative Performed At Plug Wirer ID - BS [facility] Please sent STAT Specimen moderately icteric Performing Organization Address City/State/Zipcode Phone Number [facility] [address] [place] [address] [place] Basic Metabolic Panel (01/03/2020 2:34 PM CDT) Sodium 134 (L) 136 - 145 meq/L [facility] Potassium 3.2 (L) 3.5 - 5.1 meq/L [facility] Chloride 100 98 - 107 meq/L [facility] CO2 25 22 - 29 meq/L [facility] BUN 26 (H) 7 - 21 mg/dL [facility] Creatinine 2.09 (H) 0.57 - 1.25 mg/dL [facility] Glucose 115 (H) 70 - 105 mg/dL [facility] Calcium 8.3 (L) 8.4 - 10.2 mg/dL [facility] EGFR 24Comment: ESTIMATED GFR IS mL/min/1.73 sq m [facility] NOT ACCURATE CREATININE ME DICAL CENTER CLEARANCE IN PREDICTING GLOMERULAR FILTRATION RATE. ESTIMATED GFR IS NOT APPLICABLE FOR DIALYSIS PATIENTS. Specimen Blood Narrative Performed At Plug Wirer ID - BS [facility] Please sent STAT Specimen moderately icteric Performing Organization Address City/State/Zipcode Phone Number [facility] [address] [place] [address] CENTER after 01/13/2019 Insurance Payer Benefit Plan / Subscriber ID Type Phone Address Group [employer] - [employer] HMO POS xxxxxxxxx HMO/POS QPOS [employer] - MEDICARE AETNA MEDICARE xxxxxxxx [phone] [id number] [place] [address]
--- OUTSIDE RECORDS SUMMARY | 2020-01-14 10:23 | XMS REPORT | Continuity of Care Document ---
:1955 Author Organization [facility] t Address [address] [place] [address] Care Team Providers Name Role Phone Nahun Leonard MD Primary Care Physician Mayank ESPINOSA, R Attending Clinician Unavailable Ildefonso Saini MD Attending Clinician PRABHA FORTUNE Attending Clinician Unavailable Prahba Fortune MD Attending Clinician Yvette Morales Attending Clinician Yaneli ESPINOSA Attending Clinician Unavailable Holli Borden MD Attending Clinician Joshua ADRIAN Attending Clinician Niraj MARCUS Attending Clinician Unavailable Markus ESPINOSA Attending Clinician Unavailable Sudhakar Maki MA Attending Clinician Unavailable Joshua ADRIAN Admitting Clinician Payers Payer Name Policy Type Policy Number Effective Date Expiration Date S kiarra AETNA - MGD x[facility] [id number] O/POS AETNA - xxxxxxxx [facility] MEDICARE MGD - Medical CAREAETNA Center MEDICARE HMO POS [id number] [address] Problems Condition Condition Condition Status Onset Resolution Last Treating Co mments Source Name Details Category Date Date Treatment Clinician Date Elevated Elevated Disease Active [facility]: Me dical 00 Center Other Other Disease Active [facility] - 00:00: Medical 00 Center Cirrhosis Cirrhosis Disease Active 2015-[address] [facility] [address] of liver of liver 2- Assesschapo Castañeda es - without without 00:00: t & Plan: Medic al ascites ascites 00 She has Center compensat ed cirrhosis diagnosed in March 2016 by MRI. Comprehen sive work-up done by Dr. Mccarthy was negative for autoimmun e, metabolic or viral causes of the liver diseases. Etiology is likely non-alcoh olic fatty liver disease. Her risk factors are obesity and hypertens ion. Synthetic function is somewhat preserved with INR 1.1. MELD-Na 9 (03/28/16 ). This is early for liver transplan tation. Cirrhosis education done and resources provided. Portal Portal Disease Active 2015-[address] [facility] [address] hypertensi hypertensi 2- Assesschapo [facility] - on on 00:00: t & Plan: Medical 00 Manifeste Center d by splenmilly ngo on imaging. She does not have varices, ascites or HE. 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 2- Assesschapo Arteaga - 00:00: t & Plan: Medical 00 EGD in Center March 2016 was negative for varices. Obesity Obesity Disease Active 2015-[address] [facility] 2[facility]-39.9 35.0-39.9 00:00: t & Plan: M edical without without 00 The Center comorbidit comorbidit patient's y) y) current BMI is 39.08. Obesity is an establish ed risk factor for vascular complicat ions (ie coronary artery disease, cerebrova scular disease, periphera l vascular disease), osteoarth ritis, pulmonary disease, as well as the developme nt of non-alcoh olic fatty liver disease and the risk for non-alcoh olic steatohep atitis. We have recommend ed a structure d weight loss program (10% body weight initially ), along with dietary modificat ions and regular exercise for overall good health and to minimize the risk of obesity-r elated complicat ions. Constipati Constipati Disease Active 2015-[address] on on 09-01 [facility] - 00:00: t & Plan: Medical 00 Recommend Center miralax Screening Screening Disease Active 2015-[address] for for 09-01 [facility] - malignant malignant 00:00: t & Plan: M edical neoplasm neoplasm [address] , regardles s of etiology, is a risk factor for hepatocel lular carcinoma (HCC), with an annual incidence of 1.5-7%. We recommend surveilla nce for HCC with abdominal imaging and alphafeto protein every 6 months. MRI in April 2016 was negative for any suspiciou s lesions in the liver. AFP 03/28/16 is 4.0. Adrenal Adrenal Disease Active 2015-[address] mass, left mass, left 09-01 [facility] - 00:00: t & Plan: Medical 00 3.5 x 2.5 Center cm focus on the left adrenal gland reported on MRI in April 2016. This could be a left adrenal mass vs a diverticu lum from the fundus of the stomach. This is likely benign. We will request the CD and review at the radiology conferenc e. Further recommend ations to follow. Hematuria, Hematuria, Problem Active [facility] [...] ents Source Name Type Date Date Clinician Erythrom Drug Active Hives 2015-[address] [facility] [address] ycin Allergy 2 [facility] - 00:00: Medical 00 [place] Levoflox Drug Active Other (See 2015-[address] acin Intolera Comments) 09-01 and [facility]ukes - nce 00:00: diarrhea Medical 00 Center Sulfa Drug Active Rash 2015-[address] [facility] (Sulfona Allergy 09-01 [facility] - mide 00:00: Medical Antibiot 00 Center ics) Tetracyc Drug Active Hives 2015-[address] lines Allergy 09-01 [facility] - 00:00: Medical 00 [place] Tetracyc Adverse Active hives [facility] line HCl Reaction [facility] Erythrom Adverse Active vomiting/jocy [facility] ycin Reaction rrhea [facility] Levaquin Adverse Active vomiting/jocy [facility] Reaction [facility]hea [facility] Family History Family Member Diagnosis Comments Start Date Stop Date Source Natural brother Diabetes [facility] Natural brother Hypertension [facility] Natural brother Arthritis [facility] Natural brother COPD [facility] Natural father Diabetes [facility] Natural father Heart disease [facility] Natural mother Diabetes [facility] Natural mother Heart disease [facility] Natural sister Cancer [facility] Social History Social Habit Start Date Stop Date Quantity Comments Source Sex Assigned At [facility] Alcohol Comment 2016-07-01 2016-07-01 social last drink [facility] - 00:00:00 00:00:00 06/15/16 [facility] Smoking Status Start Date Stop Date Source Former smoker 2020-01-03 00:00:00 2020-01-03 00:00:00 [facility] Medications Ordered Filled Start Stop Current Ordering Indication Dosage Frequency Signature Comments Components Source Medication Medication Date Date Medication? Clinician (SIG) Name Name calcitrioL Yes .5ug QD Take 0.[address] (ROCALTROL) 6-08 mcg by Lukes - 0.5 MCG 13:43: mouth Medical capsule 27 daily. [place] furosemide Yes 40mg Q.5D Take [address] (LASIX) 20 6-08 by mouth 2 Gar[place] es - MG tablet 13:42: (two) Medical 25 times Center daily . spironolact Yes 25mg QD Take [address] one 5-21 by mouth [facility]ukes - (ALDACTONE) 13:35: daily. Medi steven 25 MG 14 Center tablet Albuterol Albuterol Yes Mitzy [address] Sulfate HFA Sulfate HFA 4-09 [place] needed [facility] - 00:00: Mem[facility] 00 [facility] ent [facility] Lactulose Lactulose Yes Mitzy [address] 4-08 [place] [facility] ranitidine 2016-07 Yes Screening 150mg Take [address] (ZANTAC) 0-23 for mg by Lukes - 150 MG 12:04: malignant mouth as Me dical capsule 07 neoplasm needed Center (every 8 hours- as antihistam ine by PCP). Cimetidine Cimetidine Yes Mitzy [address] [place] as needed [facility] Vital Signs Vital Name Observation Time Observation Value Comments Source Systolic blood 2020-01-03 13:45:00 112 mm[Hg] [facility] Diastolic blood 2020-01-03 13:45:00 71 mm[Hg] [facility] Heart rate 2020-01-03 13:45:00 94 /min [facility] Body temperature 2020-01-03 13:45:00 36.39 Shaneka [facility] Respiratory rate 2020-01-03 13:45:00 18 /min [facility] Body height 2020-01-03 13:45:00 162.6 cm [facility] Body weight Measured 2020-01-03 13:45:00 92.987 kg [facility] BMI 2020-01-03 13:45:00 35.19 kg/m2 [facility] Oxygen saturation in 2020-01-03 13:45:00 97 /min [facility] - Arterial blood by Medical Ce nter Pulse oximetry Procedures Procedure Date / Time Performed Performing Clinician [facility] e BASIC METABOLIC PANEL 2020-01-03 14:34:00 Kadie Larry Kastrup [facility] (7) [facility] HEPATIC FUNCTION PANEL 2020-01-03 14:34:00 Kadie Larry Kastru p [facility] PROTHROMBIN TIME/INR 2020-01-03 14:34:00 LarryKadie Kastrup [facility] ALPHA FETOPROTEIN (AFP), 2020-01-03 14:34:00 LarryKadiet rup [facility] TUMOR MARKER [facility] CBC W/PLT COUNT & AUTO 2020-01-03 14:34:00 LarryKadie Kastru p [facility] DIFFERENTIAL [facility] Plan of Care Planned Activity Planned Date Details Comments Source Future Scheduled 2020-03-[address] [facility] - Test 00:00:00 (Season Ended) [code = Medic ct Center INFLUENZA VACCINE (Season Ended)] Future Scheduled 2020-02-26 [place]FL[place]ZA VACCINE [place] [facility] 00:00:00 [code = INFLUENZA VACCINE] Future Scheduled 2019-07-28 Medicare IPPE (WELCOME [facility] Test 00:00:00 TO MEDICARE) [code = Medical Center Medicare IPPE (WELCOME TO MEDICARE)] Future Scheduled 2019 65+ PNEUMOCOCCAL [place] [facility] Test 00:00:00 VACCINE (1 of 2 - PCV13) [code = 65+ PNEUMOCOCCAL VACCINE (1 of 2 - PCV13)] Future Scheduled 2019 PNEUMOCOCCAL 65+ [facility] - Test 00:00:00 LOW/MEDIUM RISK (1 of Medica l Center 2 - PCV13) [code = PNEUMOCOCCAL 65+ LOW/MEDIUM RISK (1 of 2 - PCV13)] Future Scheduled 2004 BREAST CANCER [facility] Test 00:00:00 SCREENING [code = BREAST CANCER SCREENING] Future Scheduled 2004 COLONOSCOPY SCREENING [place] [facility] Test 00:00:00 [code = COLONOSCOPY SCREENING] Future Scheduled 2004 SHINGLES VACCINES (#1) H duane [facility] Test 00:00:00 [code = SHINGLES VACCINES (#1)] Future Scheduled 1975 Screening for [facility] Test 00:00:00 malignant neoplasm of cervix (procedure) [code = 460744226] Future Scheduled [address] [facility] [facility] - Test 00:00:00 malignant neoplasm of Medica l [place] cervix (procedure) [code = 952460908] Future Scheduled [address] [facility] - Test 00:00:00 SCREENING [code = Medical nter BREAST CANCER SCREENING] Future Scheduled 1955 COLON CANCER SCREENING [facility] Test 00:00:00 COLONOSCOPY [code = [facility] Center COLON CANCER SCREENING COLONOSCOPY] Encounters Start End Encounter Admission Attending Care Care Encounter Source Date/Time Date/Time Type Type Clinicians Facility Department ID 2020-01-03 2020-01-03 Transition [place] [id number] 00:00:00 00:00:00 of Care Aye [place] [id number] [place] [id number] 2019-12-28 2019-12-31 [facility] Yahir Borden [facility] [id number] 21:39:45 13:10:00 Encounter Jacklyn Lewis [id number] [place] [id number] [place] [id number] 2019-11-03 2019-11-03 [facility] [id number] 13:20:00 13:20:00 [facility] Medicine Outpati ent Clinics 2019-09-10 2019-09-10 [facility] [id number] 09:30:00 09:30:[address] [facility] Medicine Medicine Outpati ent Clinics 2019-08-31 2019-08-31 [facility] [id number] 08[facility]00:00 08:00:[address] [facility] Medicine l Medicine Outpati ent Clinics 2019-08-24 2019-08-24 [facility] [id number] 10:41:00 10:41:00 [facility] Medicine Outpati ent Clinics 2019-08-19 2019-08-19 [id number] [facility] 13:00:00 13:00:00 t [facility] s [facility] Medicine Medicine Outpati ent Clinics Results Test Description Test Time Test Comments Results Result Comments Source Alpha fetoprotein (AFP), tumor marker 2020-01-03 18:31:00 Test Item Value Reference Range Interpretation Comme nts Alpha-Fetoprotein (test code = 1834-1) <2.0 <10.0 ng/mL VALENTE (test code = VALENTE) Jtac ID - DB Lab Interpretation (test code = 90530-7) Normal [facility]AFP), TUMOR [id number] 18:31:00 Test Item Value Reference Range Interpretation Comments ALPHA-FETOPROTEIN (BEAKER) (test code < ng/mL <10.0 = 1094) Jtac ID - DBBasic Metabolic [id number] 15:23:00 Test Item Value Reference Range Interpretation Comments Sodium (test code = 134 meq/L 136-145 L 2951-2) Potassium (test code 3.2 meq/L 3.5-5.1 L = 2823-3) Chloride (test code = 100 meq/L 98-107 2075-0) CO2 (test code = 25 meq/L 22-29 2028-9) BUN (test code = 26 mg/dL 7-21 H 3094-0) Creatinine (test code 2.09 mg/dL 0.57-1.25 H = 2160-0) Glucose (test code = 115 mg/dL 70-105 H 2345-7) Calcium (test code = 8.3 mg/dL 8.4-10.2 L 14259-3) EGFR (test code = 24 mL/min/1.73 [place] [address]-2) m NOT ACCURATE CREATININE CLEARANCE IN PREDICTING GLOMERULAR FILTRATION RATE . ESTIMATED GFR I S NOT APPLICABLE FOR DIALYSIS PATIENTS. VALENTE (test code = VALENTE) Jtac ID - BSPlease sent STATSpecimen moderately icteric Lab Interpretation Abnormal (test code = 71781-5) [facility]OLIC [id number] 15:23:00 Test Item Value Reference Range Interpretation Comments SODIUM (BEAKER) 134 meq/L 136-145 L (test code = 381) POTASSIUM (BEAKER) 3.2 meq/L 3.5-5.1 L (test code = 379) CHLORIDE (BEAKER) 100 meq/L 98-107 (test code = 382) CO2 (BEAKER) (test 25 meq/L 22-29 code = 355) BLOOD UREA NITROGEN 26 mg/dL 7-21 H (BEAKER) (test code = 354) CREATININE (BEAKER) 2.09 mg/dL 0.57-1.25 H (test code = 358) GLUCOSE RANDOM 115 mg/dL 70-105 H (BEAKER) (test code = 652) CALCIUM (BEAKER) 8.3 mg/dL 8.4-10.2 L (test code = 697) EGFR (BEAKER) (test 24 mL/min/1.73 ESTIMA JERAMY GFR IS code = 1092) sq m NOT ACCURATE CREATININE CLEARANCE IN PREDICTING GLOMERULAR FILTRATION RATE . ESTIMATED GFR I S NOT APPLICABLE FOR DIALYSIS PATIEN TS. Jtac ID - BSPlease sent STATSpecimen moderately ictericHepatic function [id number] 15:18:00 Test Item Value Reference Range Interpretation Comments Protein, Total (test 6.2 6.0- 8.3 gm/dL code = 2885-2) Albumin (test code = 2.6 g/dL 3.5-5 L 24612-3) Total Bilirubin (test 4.8 mg/dL 0.2-1.2 H code = 1975-2) Bilirubin, Direct (test 2.0 mg/dL 0.1-0.5 H code = 1968-7) Alkaline Phosphatase 81 U/L 40-150 (test code = 6768-6) AST (test code = 1920-8) 48 U/L 5-34 H ALT (test code = 1742-6) 17 U/L 6-55 VALENTE (test code = VALENTE) Jtac ID - BSPlease sent STATSpecimen moderately icteric Lab Interpretation (test Abnormal code = 64162-0) [facility] Center[facility] FUNCTION [id number] 15:18:00 Test Item Value Reference Range Interpretation Comments TOTAL PROTEIN (BEAKER) (test code = 6.2 gm/dL 6.0-8.3 770) ALBUMIN (BEAKER) (test code = 1145) 2.6 g/dL 3.5-5.0 L BILIRUBIN TOTAL (BEAKER) (test code 4.8 mg/dL 0.2-1.2 H = 377) BILIRUBIN DIRECT (BEAKER) (test 2.0 mg/dL 0.1-0.5 H code = 706) ALKALINE PHOSPHATASE (BEAKER) (test 81 U/L 40-150 code = 346) AST (SGOT) (BEAKER) (test code = 48 U/L 5-34 H 353) ALT (SGPT) (BEAKER) (test code = 17 U/L 6-55 347) Jtac ID - BSPlease sent STATSpecimen moderately ictericPro-time/INR 2020-01-03 15:12:00 Test Item Value Reference Range Interpretation Comments Protime (test code = 18.4 11.9- 14.2 H 5902-2) seconds INR (test code = 1.6 <=5.9 6301-6) VALENTE (test code = VALENTE) Effective 12/23/2018: PT Reference Range ChangeNew: 11.9-14.2 Previous: 11.7-14.7 RECOMMENDED COUMADIN/WARFARIN INR THERAPY RANGESSTANDARD DOSE: 2.0-3.0 Includes: PROPHYLAXIS for venous thrombosis, systemic embolization; TREATMENT for venous thrombosis and/or pulmonary embolus.HIGH RISK: Target INR is 2.5-3.5 for patients wiht mechanical heart valves. Please sent STAT Lab Interpretation Abnormal (test code = 05726-1) [facility] CenterPROT[facility] [id number] 15:12:00 Test Item Value Reference Range Interpretation Comments PROTIME (BEAKER) (test code = 18.4 seconds 11.9-14.2 H 759) INR (BEAKER) (test code = 370) 1.6 <=5.9 Effective 12/23/2018: PT Reference Range ChangeNew: 11.9-14.2 Previous: 11.7- 14.7RECOMMENDED COUMADIN/WARFARIN INR THERAPY RANGESSTANDARD DOSE: 2.0-3.0 Includes: PROPHYLAXIS for venous thrombosis, systemic embolization; TREATMENT for venous thrombosis and/or pulmonary embolus.HIGH RISK: Target INR is2.5-3.5 for patients wiht mechanical heart valves.Please sent STATCBC with platelet count + automated [id number] 15:05:00 Test Item Value Reference Range Interpretation Comments WBC (test code = 6690-2) 4.4 3.5- 10.5 K/L RBC (test code = 789-8) 2.41 3.93- 5.22 M/L L MCHC (test code = 786-4) 33.2 32.2- 35.5 GM/DL L Hematocrit (test code = 4544-3) 28.9 % 34.1-44.9 L MCV (test code = 787-2) 119.9 fL 79.4-94.8 H MCH (test code = 785-6) 39.8 pg 25.6-32.2 H RDW (test code = 788-0) 17.4 % 11.7-14.4 H Platelets (test code = 777-3) 93 150- 450 K/CU MM L MPV (test code = 64836-3) 9.9 fL 9.4-12.3 nRBC (test code = 413) 0 0- 0 /100 WBC % Neutros (test code = 429) 59 % % Lymphs (test code = 430) 21 % % Monos (test code = 431) 11 % % Eos (test code = 432) 7 % % Baso (test code = 437) 1 % # Neutros (test code = 670) 2.60 1.56- 6.13 K/L # Lymphs (test code = 414) 0.91 1.18- 3.74 K/L L # Monos (test code = 415) 0.50 0.24- 0.36 K/L H # Eos (test code = 416) 0.29 0.04- 0.36 K/L # Baso (test code = 417) 0.03 0.01- 0.08 K/L Immature Granulocytes-Relative 1 % 0-1 (test code = 2801) Lab Interpretation (test code = Abnormal 49205-9) [facility] W/PLT COUNT & AUTO [id number] 15:05:00 Test Item Value Reference Range Interpretation Comments WHITE BLOOD CELL COUNT (BEAKER) 4.4 K/ L 3.5-10.5 (test code = 775) RED BLOOD CELL COUNT (BEAKER) 2.41 M/ L 3.93-5.22 L (test code = 761) HEMOGLOBIN (BEAKER) (test code = 9.6 GM/DL 11.2-15.7 L 410) HEMATOCRIT (BEAKER) (test code = 28.9 % 34.1-44.9 L 411) MEAN CORPUSCULAR VOLUME (BEAKER) 119.9 fL 79.4-94.8 H (test code = 753) MEAN CORPUSCULAR HEMOGLOBIN 39.8 pg 25.6-32.2 H (BEAKER) (test code = 751) MEAN CORPUSCULAR HEMOGLOBIN CONC 33.2 GM/DL 32.2-35.5 (BEAKER) (test code = 752) RED CELL DISTRIBUTION WIDTH 17.4 % 11.7-14.4 H (BEAKER) (test code = 412) PLATELET COUNT (BEAKER) (test code 93 K/CU MM 150-450 L = 756) MEAN PLATELET VOLUME (BEAKER) 9.9 fL 9.4-12.3 (test code = 754) NUCLEATED RED BLOOD CELLS (BEAKER) 0 /100 WBC 0-0 (test code = 413) NEUTROPHILS RELATIVE PERCENT 59 % (BEAKER) (test code = 429) LYMPHOCYTES RELATIVE PERCENT 21 % (BEAKER) (test code = 430) MONOCYTES RELATIVE PERCENT 11 % (BEAKER) (test code = 431) EOSINOPHILS RELATIVE PERCENT 7 % (BEAKER) (test code = 432) BASOPHILS RELATIVE PERCENT 1 % (BEAKER) (test code = 437) NEUTROPHILS ABSOLUTE COUNT 2.60 K/ L 1.56-6.13 (BEAKER) (test code = 670) LYMPHOCYTES ABSOLUTE COUNT 0.91 K/ L 1.18-3.74 L (BEAKER) (test code = 414) MONOCYTES ABSOLUTE COUNT (BEAKER) 0.50 K/ L 0.24-0.36 H (test code = 415) EOSINOPHILS ABSOLUTE COUNT 0.29 K/ L 0.04-0.36 (BEAKER) (test code = 416) BASOPHILS ABSOLUTE COUNT (BEAKER) 0.03 K/ L 0.01-0.08 (test code = 417) IMMATURE GRANULOCYTES-RELATIVE 1 % 0-1 PERCENT (BEAKER) (test code = 2801) CT, ABDOMEN, [id number] 15:58:00Referring: Dr. Reno SweattFINAL REPORT CT OF THE ABDOMEN CLINICAL HISTORY: HCC screening, adrenal massTECHNIQUE: CT of the abdomen is performed with and without intravenous contrast administration. Thisexam was performed according to our departmental dose-optimization [...] not obtained. Based on these enhancement characteristics, thislesion remains indeterminate. Review of prior outside imaging from 08/20/2016 suggests an absolute washout of 75%, suggesting that this lesion may represent an adenoma.KIDNEYS: No hydronephrosis or hydroureter. No solid renal lesion. GI TRACT: No bowel wall thickening or distention. PERITONEUM/RETROPERITONEUM: No free fluid or free air.LYMPH NODES: No upper abdominal, retroperitoneal, mesenteric, or pelvic lymphadenopathy.VESSELS: Abdominal aorta normal in caliber. BONES AND SOFT TISSUES: No destructive osseous lesion. IMPRESSION: 1. Cirrhosis and splenomegaly without suspicious liver lesion. 2. The3 cm left adrenal nodule is indeterminate on the basis of the current examination, however prior outside imaging suggests that this nodule may represent an adenoma. Advise attention on 3-6 month follow-up CT. Recommended including a 15 minute delay series to appropriately assess washout features. Signed: Sohail Sutherland MDReport Verified Date/Time: 05/02/2017 15:58:35 Reading Location: [facility] C0Y CT Body Reading Room CBC W/PLT COUNT & AUTO [id number] 17:30:00 Test Item Value Reference Range Interpretation Comments WHITE BLOOD CELL COUNT (BEAKER) 4.0 K/ L 4.0-10.0 (test code = 775) RED BLOOD CELL COUNT (BEAKER) 4.15 M/ L 4.00-5.00 (test code = 761) HEMOGLOBIN (BEAKER) (test code = 14.6 GM/DL 12.0-15.0 410) HEMATOCRIT (BEAKER) (test code = 45.7 % 36.0-45.0 H 411) MEAN CORPUSCULAR VOLUME (BEAKER) 110.0 fL 82.0-99.0 H (test code = 753) MEAN CORPUSCULAR HEMOGLOBIN 35.2 pg 27.0-33.0 H (BEAKER) (test code = 751) MEAN CORPUSCULAR HEMOGLOBIN CONC 31.9 GM/DL 32.0-36.0 L (BEAKER) (test code = 752) RED CELL DISTRIBUTION WIDTH 12.5 % 10.3-14.2 (BEAKER) (test code = 412) PLATELET COUNT (BEAKER) (test code 69 K/CU MM 150-430 L = 756) MEAN PLATELET VOLUME (BEAKER) 8.7 fL 6.5-10.5 (test code = 754) NUCLEATED RED BLOOD CELLS (BEAKER) 0 /100 WBC 0-0 (test code = 413) NEUTROPHILS RELATIVE PERCENT 58 % (BEAKER) (test code = 429) LYMPHOCYTES RELATIVE PERCENT 27 % (BEAKER) (test code = 430) MONOCYTES RELATIVE PERCENT 9 % (BEAKER) (test code = 431) EOSINOPHILS RELATIVE PERCENT 5 % (BEAKER) (test code = 432) BASOPHILS RELATIVE PERCENT 1 % (BEAKER) (test code = 437) NEUTROPHILS ABSOLUTE COUNT 2.31 K/ L 1.80-8.00 (BEAKER) (test code = 670) LYMPHOCYTES ABSOLUTE COUNT 1.05 K/ L 1.48-4.50 L (BEAKER) (test code = 414) MONOCYTES ABSOLUTE COUNT (BEAKER) 0.37 K/ L 0.00-1.30 (test code = 415) EOSINOPHILS ABSOLUTE COUNT 0.21 K/ L 0.00-0.50 (BEAKER) (test code = 416) BASOPHILS ABSOLUTE COUNT (BEAKER) 0.02 K/ L 0.00-0.20 (test code = 417) 0.00ALPHA FETOPROTEIN (AFP), TUMOR [id number] 16:31:00 Test Item Value Reference Range Interpretation Comments ALPHA-FETOPROTEIN (BEAKER) (test 3.3 ng/mL <10.0 code = 1094) Effective 06/14/2014: Reference Range ChangeNew: <10.0 Previous: 0.0-8.0 BASIC METABOLIC [id number] 16:13:00 Test Item Value Reference Range Interpretation [...] FOR DIALYSIS PATIEN TS. Specimen slightly ictericLIPID [id number] 16:13:00 Test Item Value Reference Range Interpretation [...] Very High >=190 Specimen slightly ictericHEPATIC FUNCTION [id number] 16:13:00 Test Item Value Reference Range Interpretation [...] (test code = 364) Specimen slightly ictericPROTHROMBIN [id number] 16:13:00 Test Item Value Reference Range Interpretation [...]
--- OUTSIDE RECORDS SUMMARY | 2020-01-14 10:24 | XMS REPORT ---
[...] Date Status Dosage System Date Albuterol ND 53978638732 108 (90 Base) November 03, Active 1 puff as Sulfate HFA MCG/ACT 2020 needed Inhalation every 6 hrs Lactulose ND 64105206895 20 GM/30ML November 02, Active 15 ml Orally Once a 2020 day Cimetidine ND 33287608267 200 MG Orally Active 1 t ablet Once a day as needed Results Name Result Date Reference Range Unit Abnormali ty Flag Ammonia, Plasma ----Ammonia, Plasma 54 20191103 34-178 ug/dL Comp. Metabolic Panel (14) (CMP) ----Sodium 141 20191103 134-144 mmol/L ----BUN/Creatinine Ratio 12 20191103 12-28 ----Chloride 104 66416562 96-106 mmol/L ----Potassium 3.7 20191103 3.5-5.2 mmol/L ----Calcium 8.5 20191103 8.7-10.3 mg/dL L ----Protein, Total 5.6 20191103 6.0-8.5 g/dL L ----Carbon Dioxide, 22 88602685 20-29 mmol/L Total ----A/G Ratio 1.0 25313477 1.2-2.2 L ----eGFR If NonAfricn Am 84 42741666 >59 mL/min/1.73 ----Bilirubin, Total 4.3 44968071 0.0-1.2 mg/dL H ----eGFR If Africn Am 97 21465994 >59 mL/min/1.73 ----Albumin 2.8 55137638 3.8-4.8 g/dL L ----BUN 9 05765910 8-27 mg/dL ----Globulin, Total 2.8 71409515 1.5-4.5 g/dL ----Creatinine 0.75 05991142 0.57-1.00 mg/dL ----ALT (SGPT) 14 48404647 0-32 IU/L ----Glucose 80 53595277 65-99 mg/dL ----Alkaline Phosphatase 80 00120601 39-117 IU/L ----AST (SGOT) 45 36653197 0-40 IU/L H Summary Purpose eClinicalWorks Submission
--- OUTSIDE RECORDS SUMMARY | 2020-01-14 10:25 | XMS REPORT | Summary of Care ---
:1955 Author Organization [facility] Address [address] [place] [id number] Care Team Providers Name Role Phone Zeinab Gill Primary Care Provider Reason for Referral Other (Routine) Status Reason Specialty Diagnoses / Referred By Referred To Procedures Contact Contact New Request Diagnoses ANDERS (acute kidney injury) Feliciano Laboy MD Aglieco, Fabio G, Procedures Discharge Follow-up: Specialty Provider HIMANSHU DIAS; 2 Weeks [address] [place], [place] [address] [place] [address] [place], [place] Phone: [phone] Phone: Fax: (Routine) Status Reason Specialty Diagnoses / Referred By Referred To Procedures Contact Contact Pending Review IM-GASTROENTEROL Diagnoses Cirrhosis of liver with ascites, unspecified hepatic cirrhosis type Feliciano Laboy MD OGY Procedures Discharge Follow-Up: Specialty Service IM-GASTROENTEROLOGY; 3-5 Days (appointment on friday ) [address] [place] [address] (Routine) Status Reason Specialty Diagnoses / Referred By Referred To Procedures Contact Contact New Request Diagnoses Cirrhosis of liver with ascites, unspecified hepatic cirrhosis type Feliciano Laboy MD Crook, Debra Kay Procedures Discharge Follow-up: PCP MITZY GILL; 2 Weeks 301 [facility] [address] [facility] [address] [address] [place], [place] Phone: [phone] Phone: Fax: Radiology Services (Routine) Status Reason Specialty Diagnoses / Referred By Referred To Procedures Contact Contact New Request Diagnostic Diagnoses Anasarca NicoleBlayne [place], Radiology Procedures IR PARACENTESIS/PERITONECENTESIS WITH IMAGING [address] [place] [address] Radiology Services (Routine) Status Reason Specialty Diagnoses / Referred By Referred To Procedures Contact Contact New Request Diagnostic Diagnoses Anasarca Jacklyn Lewis, Radiology Procedures IR PARACENTESIS [address] [place] [address] MRI/CAT Scan (STAT) Status Reason Specialty Diagnoses / Referred By Referred To Procedures Contact Contact New Request Diagnostic Diagnoses Fever and chills Yarima, Wakili Radiology Procedures CT abdomen pelvis with contrast [place] [address] MRI/CAT Scan (STAT) Status Reason Specialty Diagnoses / Referred By Referred To Procedures Contact Contact New Request Diagnostic Diagnoses Fever and chills Yarima, [place] Radiology Procedures CT thorax with contrast [place] [address] Radiology Services (STAT) Status Reason Specialty Diagnoses / Referred By Referred To Procedures Contact Contact New Request Diagnostic Diagnoses Confusion Yarima, [place] Radiology Procedures XR CHEST 1 VW [place] [address] Reason for Visit Reason Comments Fever Auth/Cert Status Reason Specialty Diagnoses / Referred By Referred To Procedures Contact Contact Emergency Medicine [facility] Em ergency Dept [address] [place] [address] Fax: Encounter Details Date Type Department Care Team Description 12/28/2019 - Hospital Encounter ADC Medicine Surgery Yarima, Wakili S, MD 301 [facility] [id number] [place], [place] [id number] Hypokalemia 12/31/2019 Unit Jacklyn Lewis MD 301 [facility]. [place], [place] [id number] [address] [place] [address] [place], [place] [id number] Allergies Active Allergy Reactions Severity Noted Date Comments Erythromycin Other - See comments 12/28/2019 Patient cant remember Levofloxacin Nausea and/or 12/28/2019 Vomiting Sulfa (Sulfonamide Other - See comments 12/28/2019 C ant remember Antibiotics) Tetracycline Rash 12/28/2019 documented as of this encounter (statuses as of 12/31/2019) Medications Medication Sig Dispensed Refills Start Date End Date Status furosemide (LASIX) 20 Take 20 mg by 0 Active mg tablet mouth daily. spironolactone 25 mg Take 1 tablet 30 tablet 0 01/01/2020 Active tablet by mouth daily. amoxicillin-clavulanat Take 1 tablet 28 tablet 0 12/31/2019 Active e (AUGMENTIN) 875-125 by mouth 2 mg per (two) times tabletIndications: daily for 14 Fever and chills days. calcitrioL 0.5 mcg Take 1 capsule 30 capsule 0 01/01/2020 07/0 12/2019 Active capsuleIndications: by mouth daily ANDERS (acute kidney for 30 days. injury) documented as of this encounter (statuses as of 12/31/2019) Active Problems Problem Noted Date Hypokalemia 12/29/2019 Obesity (BMI 30-39.9) 12/29/2019 documented as of this encounter (statuses as of 12/31/2019) Social History Tobacco Use Types Packs/Day Years Used Date Former Smoker Smokeless Tobacco: Never Used Sex Assigned at Date Recorded Not on file Job Start Date Occupation Industry Not on file Not on file Not on file Travel History Travel Start Travel End No recent travel history available. COVID-19 Exposure Response Date Recorded In the last month, have you been in contact with No / Unsure 12/28/2019 9:28 PM CDT someone who was confirmed or suspected to have Coronavirus / COVID-19? documented as of this encounter Last Filed Vital Signs Vital Sign Reading Time Taken Comments Blood Pressure 108/52 12/31/2019 11:34 AM CDT Pulse 73 12/31/2019 11:34 AM CDT Temperature 36.4 C (97.6 F) 12/31/2019 11:34 AM CDT Respiratory Rate 18 12/31/2019 11:34 AM CDT Oxygen Saturation 75% 12/31/2019 11:34 AM CDT Inhaled Oxygen Concentration - - Weight 95.5 kg (210 lb 8 oz) 12/31/2019 3:49 AM CDT Height 162.6 cm (5' 4") 12/29/2019 5:01 AM CDT Body Mass Index 36.13 12/29/2019 5:01 AM CDT documented in this encounter Discharge Instructions AttachmentsThe following attachments cannot be sent through Care Everywhere. Bacteremia, Suspected (Adult) (Emirati)Amoxicillin capsules or tablets (Emirati) Calcitriol capsules (Emirati)Cirrhosis (Emirati)documented in this encounter Progress Notes Scott Castillo RN - 12/31/2019 1:02 PM CDT Care Management Discharge Disposition Note (DCDN) 5-2-1 Interventions: Clear discharge plan 5-2-1 Providers: Glass Calibrator/Senior Policy Advisor 5-2-1 Patient Capacity Improvements: Discharge Plan for ongoing care and services: Is this a new referral: Patient Choice completed for referred services: DME location: Other DME location: Durable Medical Equipment: Home Health location: Discharge location(s): Patient choice completed for referred services: Discussed with patient/patients family involved in decision making: Patient or family caregiver understands, and agrees with discharge plan. Community resources/referrals made or provided to patient: Resources/Referrals: Transportation: Private Vehicle Mental Status: Alert & Oriented to Person,Place & Time Living Arrangement: Home Other living arrangement: Address of living arrangement: [address] [place] [address] Funding Resources: Medicare Replacement Nursing informed of discharge plan: Yes Name of RN informed: Expected discharge date: 12/31/2019 Time: Midday [20] Additional Information: CM/SW Name & Contact number: Scott Castillo RN Ph. Scott Castillo RN, BSN [facility] ADC Glass Calibrator [phone] The following information has been provided to the facility noted above: reason for the patient discharge or transfer; patients physical and psychosocial status; summary of care, treatment, servicesprovided to patient; and the patient progress toward goals. DishaMasterJAYNEP - 12/31/2019 10:29 AM CDT Subjective: Patient is a 64-year-old female with past medical history of cirrhosis of the liver who presents with fever/chills and muscle spasms. Patient positive for fever and bacteremia which I have been consulted for. Patient examined at bedside. Reports decreased appetite and some nausea. Fevers have resolved. Denies shortness of breath, dysuria and diarrhea. Objective: Vitals: 12/30/19 1919 12/30/19 2315 12/31/19 0349 12/31/19 0801 BP: 110/51 96/59 102/61 105/49 Pulse: 80 82 80 75 Resp: 18 18 18 18 Temp: 37.4 C (99.4 F) 36.7 C (98.1 F) 36.6 C (97.9 F) 36.3 C (97.3 F) TempSrc: Temporal Artery Temporal Artery Temporal Artery Temporal Artery SpO2: 92% 95% 94% 94% Weight: 210 lb 8 oz (95.5 kg) Height: CBC WBC (10*3/L) Date Value 12/31/2019 2.12 (L) RBC (10*6/L) Date Value 12/31/2019 2.04 (L) PLT (10*3/L) Date Value 12/31/2019 34 (LL) HGB (g/dL) Date Value 12/31/2019 8.0 (L) HCT (%) Date Value 12/31/2019 23.8 (L) CMP NA (mmol/L) Date Value 12/31/2019 133 (L) K (mmol/L) Date Value 12/31/2019 3.1 (L) CALCIUM (mg/dL) Date Value 12/31/2019 7.9 (L) CL (mmol/L) Date Value 12/31/2019 102 BUN (mg/dL) Date Value 12/31/2019 22 CREATININE (mg/dL) Date Value 12/31/2019 1.30 (H) GLUCOSE (mg/dL) Date Value 12/31/2019 88 CO2 TOTAL (mmol/L) Date Value 12/31/2019 27 ALBUMIN (g/dL) Date Value 12/28/2019 3.1 (L) T PROTEIN (g/dL) Date Value 12/28/2019 7.0 TOTAL BILI (mg/dL) Date Value 12/28/2019 7.2 (H) ALTv (U/L) Date Value 12/28/2019 16 AST(SGOT) (U/L) Date Value 12/28/2019 51 (H) ALK PHOS (U/L) Date Value 12/28/2019 69 ROS: General: Awake, alert, lying in bed CV: S1, S2 RESP: Good breath sounds throughout lung ji ABD: Round, nontender, hypoactive bowel sounds Extremities: No edema Assessment and plan: Cirrhosis Bacteremia secondary to Klebsiella Oxytoca Fevers resolved Currently on Rocephin Recommend to change to Augmentin PO for total of 2 weeks Will continue to monitor Patient discussed with Dr. Garcia Feliciano Ortega MD - 12/30/2019 4:41 PM CDT [facility] Medicine Progress Note Name: Oleksandr Christian : 1955 Admit Date: 12/28/2019 PCP on file: Mitzy Gill ASSESSMENT: Oleksandr Christian is a 64 year old female with PLAN: # Fever # Possible bacteremia # Possible SBP - continue ceftriaxone day 2 - follow cultures - ID consulted # Acute decompensated cirrhosis # Ascites -- continue diuresis -- s/p paracentesis 12/28. 4960 cc fluid removed -- ammonia level normal -- has an appointment with hepatology on the coming Friday # ANDERS, mild - monitor renal function - avoid nephrotoxins - consult nephrology # Hypokalemia -- replete prn # Lactic acidosis: uncertain etiology, resolving Dispo: home in 1-2 d VTE Prophylaxis: ambulation Code Status: [facility] was verified during stay Electronically signed by: Feliciano Laboy MD SUBJECTIVE/ 24-HOUR HOSPITAL EVENTS: 12/29: No new complaint. No fever. OBJECTIVE: Vital signs range: Temp: [36 C (96.8 F)-36.7 C (98 F)] 36.1 C (97 F) Pulse: [66-80] 80 Resp: [18] 18 BP: (87-96)/(43-58) 96/48 Most recent vital signs: BP 96/48 | Pulse 80 | Temp 36.1 C (97 F) (Temporal Artery) | Resp 18 | Ht 1.626 m (5' 4") |Wt 96 kg (211 lb 9.6 oz) | SpO2 95% | BMI 36.32 kg/m I/O: No intake/output data recorded. PHYSICAL EXAM: General: alert and oriented x 4 (person, place, date/time and situation); no apparent distress HEENT: pupils equal, round, reactive to light; extraocular movements intact; oropharynx clear; moistmucous membranes Neck: supple, no lymphadenopathy, no bruits, no JVD Lungs: clear to auscultation bilaterally Cardio: S1, S2 normal; no murmurs, rubs or gallops Abdomen: soft; non-tender; distended; normoactive bowel sounds Extremities: no clubbing or cyanosis. 3+ pitting edema in LE Skin: no rashes Neuro: cranial nerves II through XII grossly intact; sensation grossly intact; muscle strength 5 outof 5 in all four extremities, no focal deficits, alert and oriented x 3 LABS: I reviewed all the relevant patient's new lab test results Recent Results (from the past 24 hour(s)) Basic Metabolic Panel (NA, K, CL, CO2, GLUCOSE, BUN, CREATININE, CA) Collection Time: 12/30/19 3:42 AM Result Value Ref Range NA 134 (L) 135 - 145 mmol/L K 3.5 3.5 - 5.0 mmol/L CL 103 98 - 108 mmol/L CO2 TOTAL 28 23 - 31 mmol/L AGAP 3 2 - 16 BUN 23 7 - 23 mg/dL GLUCOSE 122 (H) 70 - 110 mg/dL CREATININE 1.44 (H) 0.50 - 1.04 mg/dL CALCIUM 8.3 (L) 8.6 - 10.6 mg/dL eGFR Calculation (Non-) 36.5 mL/min/1.73m2 eGFR Calculation () 44.3 mL/min/1.73m2 Lactic Acid Whole Blood Collection Time: 12/30/19 3:42 AM Result Value Ref Range LACTIC ACID 2.12 0.50 - 2.20 mmol/L CBC WITH DIFFERENTIAL Collection Time: 12/30/19 11:34 AM Result Value Ref Range WBC 4.99 4.30 - 11.10 10*3/L RBC 2.41 (L) 3.93 - 5.25 10*6/L HGB 9.5 (L) 11.6 - 15.0 g/dL HCT 28.4 (L) 35.7 - 45.2 % MCV 117.8 (H) 80.6 - 95.5 fL MCH 39.4 (H) 25.9 - 32.8 pg MCHC 33.5 31.6 - 35.1 g/dL RDW-SD 73.1 (H) 39.0 - 49.9 fL RDW-CV 16.8 (H) 12.0 - 15.5 % PLT 53 (L) 166 - 358 10*3/L MPV 11.1 9.5 - 12.9 fL IPF % 4.1 1.3 - 7.7 % NRBC/100 WBC 0.0 0.0 - 10.0 /100 WBCs NRBC x10^3 <0.01 10*3/L GRAN MAT (NEUT) % 74.4 % IMM GRAN % 0.80 % LYMPH % 15.4 % MONO % 6.4 % EOS % 2.6 % BASO % 0.4 % GRAN MAT x10^3(ANC) 3.71 1.88 - 7.09 10*3/uL IMM GRAN x10^3 0.04 0.00 - 0.06 10*3/uL LYMPH x10^3 0.77 (L) 1.32 - 3.29 10*3/uL MONO x10^3 0.32 (L) 0.33 - 0.92 10*3/uL EOS x10^3 0.13 0.03 - 0.39 10*3/uL BASO x10^3 <0.03 0.01 - 0.07 10*3/uL IMAGING: I reviewed all the relevant patient's new radiology test results Hospital Encounter on 12/28/19 IR PARACENTESIS/PERITONECENTESIS WITH IMAGING Narrative EXAM: IR PARACENTESIS/PERITONECENTESIS WITH IMAGING HISTORY: 64 years -old Female with Anasarca PRE-PROCEDURE DIAGNOSIS: Ascites POST-PROCEDURE DIAGNOSIS: Ascites FACULTY: Kristen ANESTHESIA/SEDATION: Local anesthesia SPECIMEN: ~4960 cc yellow translucent fluid COMPLICATIONS: None FINDINGS: Moderate volume of simple-appearing free fluid was visualized in the right lower quadrant. At end of examination, mild volume remained. PROCEDURE: The procedure was discussed and the patient?s questions and concerns were addressed. Written consent was obtained. Patient was placed in supine position. Targeted ultrasound was performed, the approach was chosen, and the overlying skin marked. The patient was then prepped and draped in usual sterile fashion. A formal time-out procedure was completed. Local anesthesia was administered. Utilizing continuous ultrasound guidance a 5 Mongolian Yueh was advanced into the fluid collection with spontaneous return of fluid. A total of ~4960 cc of fluid was removed, a sample of which was submitted for laboratory analysis. Hemostasis was achieved and the patient tolerated the procedure well without immediate complication or complaint. Written and verbal post-procedure instructions were given. The patient returned to their hospital room in stable condition and will follow-up with the ordering service for results of this aspiration. Impression Image-guided diagnostic and therapeutic paracentesis with aspiration of ~4960 mL yellow, translucent ascitic fluid. CT thorax with contrast Narrative PROCEDURE: CT CHEST WITH CONTRAST - CHEST PROTOCOL CLINICAL INDICATION: Shortness of breath FEVER, Cough. Hx of Liver disease with elevated LFTs, Ascites COMPARISON: Same day chest radiograph. TECHNIQUE: Helical CT of the chest was performed (lung apices to bases) after administration of contrast. MIP and coronal & sagittal MPR images were generated and reviewed. (DFOV = 36.0 cm) FINDINGS: Lower neck/thyroid: Unremarkable. Lungs/pleura: Centrilobular and paraseptal emphysematous changes are present. Centrilobular emphysema is particularly evident in the upper lungs with severe bulla development. Some mild interstitial thickening is also seen, mostly at the right lung apex. No pleural effusion or pneumothorax. Biapical pleural scarring. Atelectatic changes adjacent to the hiatal hernia. 6 mm right lower lobe lung nodule. Central airway: The central airways are patent. Mild bronchiectasis of the upper lobes. Thoracic aorta and great vessels: Normal in diameter. Classic three-vessel branching pattern. Pulmonary arteries: Unremarkable. Heart and pericardium: No detectable coronary arterial calcification. Unremarkable cardiac morphology and pericardium. Aortic annular calcifications. Mediastinum/Lymph nodes: No enlarged thoracic lymph nodes. Esophagus is mildly patulous with air fluid level seen as far cranial as the aortic arch. Thoracic spine and chest wall: Unremarkable, with normal thoracic vertebral body heights. No aggressive osseous lesions. Other Lines/Tubes/Devices/Hardware: None Visualized upper abdomen: Moderate-sized hilar hernia. Gastroesophageal varices are seen. Please refer to the separately dictated CT abdomen pelvis for detailed findings. Impression 1. Severe upper lobe pulmonary emphysema with at least mild superimposed interstitial lung disease. Follow-up with a high-resolution CT is recommended. 2. 6 mm right lower lobe nodule. A lung nodule protocol CT should be performed in one year to assess for stability. 3. Moderate size hiatal hernia. Fluid level in the esophagus to the level of the aortic arch; this patient may be at risk for aspiration. Preliminary Report Dictated by Resident: Felipe Martin I, Cosmo Conner MD., have reviewed this study and agree with the above report. CT abdomen pelvis with contrast Narrative EXAM: CT ABDOMEN AND PELVIS WITH CONTRAST HISTORY: History of cirrhosis COMPARISON: None. TECHNIQUE AND FINDINGS: Axial CT of the abdomen and pelvis was performed after administration of 102 mL Omnipaque 350 intravenous contrast. Coronal and sagittal reformatted images are provided. FINDINGS: LOWER THORAX: Please refer to the separately dictated CT chest for detailed intrathoracic findings. HEPATOBILIARY: The liver is shrunken with a nodular contour. Heterogenous attenuation of the liver. No focal lesions are identified within the limits of a single phase study. GALLBLADDER AND BILIARY TREE: No biliary ductal dilation. Evaluation of the gallbladder and gallbladder wall is limited by presence of surrounding ascites. No radiopaque stones are identified. SPLEEN: 16.1 cm splenomegaly. PANCREAS: No ductal dilation or masses. ADRENAL GLANDS: A left adrenal mass measures 2.6 x 3.2 x 4.1 cm. The right adrenal gland is unremarkable. KIDNEYS: No hydronephrosis, stones, or masses. PERITONEUM AND RETROPERITONEUM: Large volume ascites. No free air. LYMPH NODES: No lymphadenopathy. GI TRACT: Small to moderate hiatal hernia. Nondistention of stomach and colon limit their evaluation. Apparent mild thickening may be due to underdistention and/or portal hypertensive colopathy and gastropathy. Diverticulosis. No bowel dilatation to suggest obstruction. PELVIS/BLADDER: Status post hysterectomy. Bladder is collapsed. VESSELS: The main portal vein is patent. Prominent portosystemic collaterals including gastroesophageal varices. Mild atherosclerotic disease. BONES AND SOFT TISSUES: No suspicious lytic or sclerotic bony lesions. Body wall anasarca. Impression 1. Changes of cirrhosis with sequelae of portal hypertension including large volume ascites, splenomegaly, and prominent portosystemic collaterals, including gastroesophageal varices. 2. Left adrenal mass (4.1 cm). Further characterization with an adrenal mass protocol CT or MR is recommended. 3. Colonic diverticulosis. 4. Small to moderate-sized hiatal hernia. 5. Body wall anasarca. Preliminary Report Dictated by Resident: Nguyen Barrett MD., have reviewed this study and agree with the above report. XR CHEST 1 VW Narrative XR CHEST 1 VW Comparison: None available History: AMS, Fever Findings: Suboptimal inspiratory volumes are noted with secondary bronchovascular crowding. Patchy retrocardiac opacities are noted. No pleural effusion or pneumothorax is identified. The cardiomediastinal silhouette is normal in size. No acute osseous abnormality is present. Impression Patchy retrocardiac opacities may represent basilar atelectasis however developing consolidative process cannot be excluded. Further evaluation may be obtained with dedicated PA/lateral radiographs or cross-sectional imaging if clinically indicated. Preliminary Report Dictated by Resident: Bandar Hoang MD., have reviewed this study and agree with the above report. MEDICATIONS: I reviewed the current inpatient medications ordered Current Facility-Administered Medications Medication Dose Route Frequency Last Rate Last Dose acetaminophen (TYLENOL) tablet 650 mg 650 mg Oral Q6HPRN cefTRIAXone (ROCEPHIN) 1,000 mg in NaCl 0.9% (NS) 50 mL MINI-BAG 1,000 mg IV Piggyback Q24H ABX 1,000 mg at 12/30/19 1152 furosemide (LASIX) injection 40 mg 40 mg Slow IV Push Q12H 40 mg at 12/30/19 1152 ondansetron (ZOFRAN (PF)) injection 4 mg 4 mg Slow IV Push Q6HPRN traMADol (ULTRAM) tablet 50 mg 50 mg Oral Q8HPRN mitRach corley LB - 12/29/2019 9:28 AM CDTSubjective Patient ID: Oleksandr Christian is a 64 year old female. Care Management Social Functional Assessment Patient Name: Oleksandr Christian Age: [age] year old Sex: female Previous admit date: N/A Current diagnosis and co-morbidities: Hypokalemia ;Anasarca Readmission Questions: Was patient discharged from any acute care hospital within the last 30 days: No Social Functional Assessment: Primary language spoken/preferred: Emirati Mental Status: Alert & Oriented to Person,Place & Time Information given by: Self Patient's support system: Child Name and number of support system: Hannah Christian, son [phone] and Deidre Cowart niece [phone] Primary Computer Analyst Supervisor: Self;Child MPOA: No Living Arrangement: Home Address of living arrangement : [address] [place] [phone] Persons living in home: Self;Child Names & numbers of persons living in home: Pt resides with her son Barriers to returning home: None Baseline functional status- ambulation: Independent Functional status-baseline personal care: Independent Baseline functional status- driving: Dependent Baseline functional status- grocery shopping: Dependent Functional status-baseline housekeeping: Dependent Functional status-baseline meal prep: Independent Current functional status same as prior: Yes Do you have a PCP?: Yes Name of PCP: Mitzy Gill Home Health Care Agency: No Provider Services: No DME Company: No Equipment: Walker Hemodialysis: No Community resources utilized: None Funding Resources: Medicare Replacement Medicare Replacement name and information: [employer] Prescription coverage plan: Medicare Part D Pharmacy where meds are filled: Other Other pharmacy[facility] [place] Anticipated services prior to disharge: Continue Medical Eval Expected mode of discharge transportation: Same as support system Additional Recommendations for DC: Medical clearance Additional info required for discharge planning: Pending medical evaluation Recommended discharge plan: Home SFA Complete: Social Functional Assessment complete: Yes Alcohol Use Screening (AUDIT-C) How often do you have a drink containing alcohol?: Never SCORE: 0 Did patient elect to have resources provided: No Role of Care Management explained. Any issues or concerns with obtaining/affording your medications at home: no. 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 Review of Systems Objective Physical Exam Assessment/Plan Home with son, will assess discharge needs FLORA Neal Senior Policy Advisor - Care Management [facility] [phone] [email or web address] in this encounter Plan of Treatment Name Type Priority Associated Diagnoses Date/Ti me BLOOD CULTURE SCREEN LAB STAT Confusion 020 10:03 PM CDT BLOOD CULTURE SCREEN LAB STAT Confusion 020 10:02 PM CDT ASPIRATE OR ABSCESS LAB Routine 12/29/19 20 3:52 PM CDT CULTURE(AEROBIC/ANAEROBIC) Name Type Priority Associated Diagnoses Order S chedule CBC with Differential LAB Routine EVERY MORNING AT 0400 for 5 Occurrenc es starting 2019 until 0, 2 completed Basic Metabolic Panel LAB Routine EVERY MORNING AT 0400 (NA, K, CL, CO2, for 5 Occur rences GLUCOSE, BUN, starting 12/29 CREATININE, CA) until 2019, 2 completed IR PARACENTESIS IMAGING Routine Anasarca ONCE for 1 O ccurrences starting 2019 until 0 LDH, TOTAL BODY FLUID LAB Routine ONCE f or 1 Occurrences starting 2019 until 0 PH, BODY FLUID LAB Routine ONCE for 1 Oc currences starting 2019 until 0 Health Maintenance Due Date Last Done Comments HEPATITIS C (HCV) SCREEN 1955 DTaP,Tdap,and Td Vaccines (1 - Tdap) 1965 Depression Screening 1966 Breast Cancer Screening (MAMMOGRAM) 1994 COLONOSCOPY 2004 Zoster Recombinant Vaccine (SHINGRIX) (1 of 2) 2004 Medicare Wellness Visit 2019 Osteoporosis Screening 2019 PNEUMOCOCCAL VACCINES 65+ (1 of 2 - PCV13) 2019 INFLUENZA VACCINE (Season Ended) 2020 LUNG CANCER SCREEN: Recommended for age 55-80 with 30 12/28/2020 12/29/2019 + pack year history documented as of this encounter Procedures Procedure Name Priority Date/Time Associated Comments Diagnosis CBC WITH DIFFERENTIAL Routine 12/31/2019 4:10 Re sults for this AM CDT procedure are i n the results section. CBC WITH DIFFERENTIAL Routine 12/31/2019 4:10 Re sults for this AM CDT procedure are i n the results section. BASIC METABOLIC PANEL Routine 12/31/2019 4:10 Re sults for this (NA, K, CL, CO2, AM CDT procedure a re in GLUCOSE, BUN, the results CREATININE, CA) section. MAGNESIUM Routine 12/31/2019 4:10 Results for this AM CDT procedure are i n the results section. CBC WITH DIFFERENTIAL Routine 12/30/2019 11:34 Re sults for this AM CDT procedure are i n the results section. CBC WITH DIFFERENTIAL Routine 12/30/2019 11:34 Re sults for this AM CDT procedure are i n the results section. LACTIC ACID WHOLE STAT 12/30/2019 3:42 Result s for this BLOOD AM CDT procedure are i n the results section. BASIC METABOLIC PANEL Routine 12/30/2019 3:42 Re sults for this (NA, K, CL, CO2, AM CDT procedure a re in GLUCOSE, BUN, the results CREATININE, CA) section. IR Routine 12/29/2019 4:17 Anasarca Results for this PARACENTESIS/PERITONE PM CDT proced ure are in CENTESIS WITH IMAGING the re sults section. BODY FLUID DIRECT Routine 12/29/2019 2:50 Result s for this COUNT PM CDT procedure are i n the results section. BODY FLUID MANUAL Routine 12/29/2019 2:50 Result s for this DIFF PM CDT procedure are i n the results section. BODY FLUID DIRECT Routine 12/29/2019 2:50 Result s for this COUNT PM CDT procedure are i n the results section. T.PROTEIN BODY FLUID Routine 12/29/2019 2:50 Res ults for this PM CDT procedure are i n the results section. GLUCOSE BODY FLUID Routine 12/29/2019 2:50 Resul ts for this PM CDT procedure are i n the results section. LACTIC ACID WHOLE STAT 12/29/2019 11:01 Result s for this BLOOD AM CDT procedure are i n the results section. PROTHROMBIN TIME / STAT 12/29/2019 11:01 Resul ts for this INR AM CDT procedure are i n the results section. LACTIC ACID WHOLE STAT 12/29/2019 8:45 Confusion Result s for this BLOOD AM CDT procedure are i n the results section. CT THORAX W CONTRAST STAT 12/29/2019 1:54 Fever and chills Results for this AM CDT procedure are i n the results section. CT ABDOMEN PELVIS W STAT 12/29/2019 1:54 Fever and chills Results for this CONTRAST AM CDT procedure are i n the results section. URINALYSIS STAT 12/28/2019 10:21 Confusion Results for this PM CDT procedure are i n the results section. XR CHEST 1 VW STAT 12/28/2019 10:14 Confusion Results fo r this PM CDT procedure are i n the results section. COVID-19 (ID NOW STAT 12/28/2019 10:06 Confusion Results for this RAPID TESTING) PM CDT procedure are in the results section. LACTIC ACID WHOLE STAT 12/28/2019 10:04 Confusion Result s for this BLOOD PM CDT procedure are i n the results section. AMMONIA, PLASMA STAT 12/28/2019 10:04 Confusion Results for this PM CDT procedure are i n the results section. CBC WITH DIFFERENTIAL STAT 12/28/2019 10:03 Confusion Re sults for this PM CDT procedure are i n the results section. CBC WITH DIFFERENTIAL STAT 12/28/2019 10:03 Confusion Re sults for this PM CDT procedure are i n the results section. BLOOD CULTURE SCREEN STAT 12/28/2019 10:03 Confusion PM CDT GRAM NEGATIVE BLOOD Routine 12/28/2019 10:02 Confusion Resu lts for this PATHOGENS DNA PM CDT procedure are in PROBE-AEROBIC the results section. BLOOD CULTURE WORKUP STAT 12/28/2019 10:02 Confusion Res ults for this PM CDT procedure are i n the results section. COMP. METABOLIC PANEL STAT 12/28/2019 10:02 Confusion Re sults for this (30070) PM CDT procedure are i n the results section. TROPONIN I STAT Add-On 12/28/2019 10:02 Confusion Results for this PM CDT procedure are i n the results section. LIPASE STAT Add-On 12/28/2019 10:02 Confusion Results for this PM CDT procedure are i n the results section. BLOOD CULTURE SCREEN STAT 12/28/2019 10:02 Confusion PM CDT CONSENT/REFUSAL FOR Routine 12/28/2019 9:24 DIAGNOSIS AND PM CDT TREATMENT NOTICE OF PRIVACY Routine 12/28/2019 9:24 PRACTICES PM CDT documented in this encounter Results CBC WITH DIFFERENTIAL (12/31/2019 4:10 AM CDT) WBC 2.12 (L) 4.30 - 11.10 [facility] 10*3/L [facility] RBC 2.04 (L) 3.93 - 5.25 [facility] 10*6/L [facility] HGB 8.0 (L) 11.6 - 15.0 [facility] g/dL [facility] HCT 23.8 (L) 35.7 - 45.2 % [facility] MCV 116.7 (H) 80.6 - 95.5 [facility] LABORATORY MCH 39.2 (H) 25.9 - 32.8 [facility] LABORATORY MCHC 33.6 31.6 - 35.1 [facility] g/dL [facility] RDW-SD 70.1 (H) 39.0 - 49.9 [facility] LABORATORY RDW-CV 16.4 (H) 12.0 - 15.5 % [facility] PLT 34 (LL) 166 - 358 [facility] 10*3/L [facility] MPV 11.2 9.5 - 12.9 fL [facility] IPF % 2.8Comment: Platelet 1.3 - 7.7 % [facility] count measured by HOSPITAL fluorescence method. LABORATORY NRBC/100 WBC 0.0 0.0 - 10.0 [facility] /100 WBCs [facility] NRBC x10^3 <0.01 10*3/L [facility] GRAN MAT (NEUT) % 64.6 % [facility] IMM GRAN % 0.50 % [facility] LYMPH % 21.2 % [facility] MONO % 8.5 % [facility] EOS % 4.7 % [facility] BASO % 0.5 % [facility] GRAN MAT 1.37 (L) 1.88 - 7.09 [facility] x10^3(ANC) 10*3/uL HOSPITAL LABORATORY IMM GRAN x10^3 <0.03 0.00 - 0.06 [facility] 10*3/uL [facility]ITAL LAB[facility]ATORY LYMPH x10^3 0.45 (L) 1.32 - 3.29 [facility] 10*3/uL [facility] LAB[facility]ORY MONO x10^3 0.18 (L) 0.33 - 0.92 [facility] 10*3/uL [facility]ITAL LABORATORY EOS x10^3 0.10 0.03 - 0.39 [facility] 10*3/uL [facility] LAB[facility] BASO x10^3 <0.03 0.01 - 0.07 [facility] 10*3/uL [facility] PLT ESTIMATE Decreased (A) Normal [facility] Specimen Blood - VENOUS Performing Organization Address [facility] Phone Number [facility] CLIA: [id number], [address] MAGNESIUM (12/31/2019 4:10 AM CDT) Pathologist Sig nature MAGNESIUM 1.4 (L) 1.7 - 2.4 mg/dL [facility] Specimen Blood - VENOUS Performing Organization Address City/[facility] Cent[facility] Phone Number [facility] CLIA: [id number], [address] Basic Metabolic Panel (NA, K, CL, CO2, GLUCOSE, BUN, CREATININE, CA) (12/31/2019 4:10 AM CDT) NA 133 (L) 135 - 145 [facility] mmol/L [facility] K 3.1 (L) 3.5 - 5.0 [facility] mmol/L [facility] CL 102 98 - 108 mmol/L [facility] CO2 TOTAL 27 23 - 31 mmol/L [facility] AGAP 4 2 - 16 [facility] BUN 22 7 - 23 mg/dL [facility] GLUCOSE 88 70 - 110 mg/dL [facility] CREATININE 1.30 (H) 0.50 - 1.04 [facility] mg/dL [facility] CALCIUM 7.9 (L) 8.6 - 10.6 [facility] mg/dL [facility] eGFR Calculation 41.1 mL/min/1.73m2 [facility] ([facility] LABORATORY Portuguese) eGFR Calculation 49.8 mL/min/1.73m2 [facility] () [facility] Specimen Blood - VENOUS Narrative Performed At [facility] LAB[facility] and Staging of Kidney Disease* + + +- + | GFR (mL/min/1.73 m2) | With Kidney Damage | Without Kidney Damage + + +- + | >90 | Stage one | Normal + + +- + | 60-89 | Stage two | Decreased GFR + + +- + | 30-59 | Stage three | Stage three + + +- + | 15-29 | Stage four | Stage four + + +- + | <15 (or dialysis) | Stage five | Stage five + + +- + *Each stage assumes the associated GFR level has been in effect for at least three months. Stages 1 to 5, with or without kidney disease, indicate chronic kidney disease. Notes: Determination of stages one and two (with eGFR >59mL/min/1.73 m2) requires estimation of kidney damage for at least three months as defined by structural or functional abnormalities of the kidney, manifested by either: Pathological abnormalities or Markers of kidney damage (including abnormalities in the composition of the blood or urine or abnormalities in imaging tests). Performing Organization Address City/State/Zipcode Phone Number [facility] CLIA: [id number], [address], [place] [address] CBC WITH DIFFERENTIAL (12/30/2019 11:34 AM CDT) WBC 4.99 4.30 - 11.10 [facility] 10*3/L [facility] RBC 2.41 (L) 3.93 - 5.25 [facility] 10*6/L [facility] HGB 9.5 (L) 11.6 - 15.0 [facility] g/dL [facility] HCT 28.4 (L) 35.7 - 45.2 % [facility] MCV 117.8 (H) 80.6 - 95.5 [facility] LABORATORY MCH 39.4 (H) 25.9 - 32.8 [facility] LABORATORY MCHC 33.5 31.6 - 35.1 [facility] g/dL [facility] RDW-SD 73.1 (H) 39.0 - 49.9 [facility] LABORATORY RDW-CV 16.8 (H) 12.0 - 15.5 % [facility] LABORATORY PLT 53 (L) 166 - 358 [facility] 10*3/L [facility] MPV 11.1 9.5 - 12.9 fL [facility] IPF % 4.1Comment: Platelet 1.3 - 7.7 % [facility] count measured by HOSPITAL fluorescence method. LABORATORY NRBC/100 WBC 0.0 0.0 - 10.0 [facility] /100 WBCs [facility] NRBC x10^3 <0.01 10*3/L [facility] GRAN MAT (NEUT) % 74.4 % [facility] IMM GRAN % 0.80 % [facility] LYMPH % 15.4 % [facility] MONO % 6.4 % [facility] EOS % 2.6 % [facility] BASO % 0.4 % [facility] GRAN MAT 3.71 1.88 - 7.09 [facility] x10^3(ANC) 10*3/uL HOSPITAL LABORATORY IMM GRAN x10^3 0.04 0.00 - 0.06 [facility] 10*3/uL HOSPITAL LABORATORY LYMPH x10^3 0.77 (L) 1.32 - 3.29 [facility] 10*3/uL [facility]OSPITAL LABORATORY MONO x10^3 0.32 (L) 0.33 - 0.92 [facility] 10*3/uL HOSPITAL LABORATORY EOS x10^3 0.13 0.03 - 0.39 [facility] 10*3/uL [facility]ITAL LABORATORY BASO x10^3 <0.03 0.01 - 0.07 [facility] 10*3/uL [facility] Specimen Blood - ARM, RIGHT Performing Organization Address City/State/Zipcode Phone Number [facility] CLIA: [id number], [address], [place] [address] Lactic Acid Whole Blood (12/30/2019 3:42 AM CDT) Pathologist Sig nature LACTIC ACID 2.12 0.50 - 2.20 mmol/L [facility] Specimen Blood - ARM, RIGHT Performing Organization Address [facility] Cent[facility]ode Phone Number [facility] CLIA: [id number], [address], [place] [address] Basic Metabolic Panel (NA, K, CL, CO2, GLUCOSE, BUN, CREATININE, CA) (12/30/2019 3:42 AM CDT) NA 134 (L) 135 - 145 [facility] mmol/L [facility] K 3.5 3.5 - 5.0 [facility] mmol/L [facility] CL 103 98 - 108 mmol/L [facility] CO2 TOTAL 28 23 - 31 mmol/L [facility] AGAP 3 2 - 16 [facility] BUN 23 7 - 23 mg/dL [facility] GLUCOSE 122 (H) 70 - 110 mg/dL [facility] CREATININE 1.44 (H) 0.50 - 1.04 [facility] mg/dL [facility] CALCIUM 8.3 (L) 8.6 - 10.6 [facility] mg/dL [facility] eGFR Calculation 36.5 mL/min/1.73m2 [facility] ([facility] LABORATORY Portuguese) eGFR Calculation 44.3 mL/min/1.73m2 [facility] () [facility] Specimen Blood - ARM, RIGHT Narrative Performed At [facility] LABORATORY and Staging of Kidney Disease* + + +- + | GFR (mL/min/1.73 m2) | With Kidney Damage | Without Kidney Damage + + +- + | >90 | Stage one | Normal + + +- + | 60-89 | Stage two | Decreased GFR + + +- + | 30-59 | Stage three | Stage three + + +- + | 15-29 | Stage four | Stage four + + +- + | <15 (or dialysis) | Stage five | Stage five + + +- + *Each stage assumes the associated GFR level has been in effect for at least three months. Stages 1 to 5, with or without kidney disease, indicate chronic kidney disease. Notes: Determination of stages one and two (with eGFR >59mL/min/1.73 m2) requires estimation of kidney damage for at least three months as defined by structural or functional abnormalities of the kidney, manifested by either: Pathological abnormalities or Markers of kidney damage (including abnormalities in the composition of the blood or urine or abnormalities in imaging tests). Performing Organization Address City/State/Zipcode Phone Number [facility] CLIA: [id number], [address], [place] [address] IR PARACENTESIS/PERITONECENTESIS WITH IMAGING (12/29/2019 4:17 PM CDT) Specimen Impressions Performed At PACS/VR/DOSE Image-guided diagnostic and therapeutic paracentesis with aspiration of ~4960 mL yellow, translucent ascitic fluid. Narrative Performed At This result has an attachment that is no t available. EXAM: IR PARACENTESIS/PERITONECENTESIS WITH IMAGING PACS/VR/DOSE HISTORY: 64 years -old Female with Anasarca PRE-PROCEDURE DIAGNOSIS: Ascites POST-PROCEDURE DIAGNOSIS: Ascites FACULTY: Kristen ANESTHESIA/SEDATION: Local anesthesia SPECIMEN: ~4960 cc yellow translucent fluid COMPLICATIONS: None FINDINGS: Moderate volume of simple-appearing free fluid was vis ualized in the right lower quadrant. At end of examination, mild volume rem ained. PROCEDURE: The procedure was discussed and the patient?s question s and concerns were addressed. Written consent was obtained. Patient was placed in supine position. Targeted ultras ound was performed, the approach was chosen, and the overlying skin marked . The patient was then prepped and draped in usual sterile fashion. A fo rmal time-out procedure was completed. Local anesthesia was administered. Utilizing continuou s ultrasound guidance a 5 Mongolian Yueh was advanced into the fluid collection with spontaneous return of fluid. A total of ~4960 cc of fluid was axel gordy, a sample of which was submitted for laboratory analysis. Hemostasis was achieved and the patient tolerated the procedure well without immediate complication or complaint. Written a nd verbal post-procedure instructions were given. The patient re turned to their hospital room in stable condition and will follow-up w [facility] the ordering service for results of this aspiration. Procedure Note [facility], Radiant Results Inft User - 2019 11:38 PM CDT EXAM: IR PARACENTESIS/PERITONECENTESIS WITH IMAGING HISTORY: 64 years -old Female with Anasa rca PRE-PROCEDURE DIAGNOSIS: Ascites POST-PROCEDURE DIAGNOSIS: Ascites FACULTY: Kristen ANESTHESIA/SEDATION: Local anesthesia SPECIMEN: ~4960 cc yellow translucent fl uid COMPLICATIONS: None FINDINGS: Moderate volume of simple-appearing free fluid was visualized in the right lower quadrant. At end of examination, m ild volume remained. PROCEDURE: The procedure was discussed and the bishop ent?s questions and concerns were addressed. Written consent was obtained. Patient was placed in supine position. T argeted ultrasound was performed, the approach was chosen, and the overlyi ng skin marked. The patient was then prepped and draped in usual sterile fashion. A formal time-out procedure was completed. Local anesthesia was administered. Utili zing continuous ultrasound guidance a 5 Mong[place]ian Yueh was advanced into the fl uid collection with spontaneous return of fluid. A total of ~4960 cc of fluid was removed, a sample of which was submitted for laboratory adán sis. Hemostasis was achieved and the patient tolerated the procedure well without immediate complication or compla int. Written and verbal post-procedure instructions were given. The patient returned to their hospital room in stable condition and wi ll follow-up with the ordering service for results of this aspiration. IMPRESSION Image-guided diagnostic and therapeutic paracentesis with aspiration of ~4960 mL yellow, translucent ascitic flu id. Performing Organization Address City/State/Zipcode Phone Number PACS/VR/DOSE BODY FLUID MANUAL DIFF (12/29/2019 2:50 PM CDT) BF SEGS 68 % [facility] SERVICES BF LYMPHS 9 % [facility] SERVICES MACROPHAGE 22Comment: Reviewed by % [facility] Zita Hanks MD, Ph.D. SERVICES Director of HEMATOPATHOLOGY MESOS 1 % [facility] SERVICES #CELS CNTD 100 [facility] SERVICES Specimen Fluid - ASCITES Narrative Performed At Reviewed by Zita Hanks MD, Ph.D. [facility] SERVICES Director of HEMATOPATHOLOGY Performing Organization Address City/State/Zipcode Phone Number [facility] SERVICES CLIA: [id number], [address] [address] [address] [facility] BODY FLUID DIRECT COUNT (12/29/2019 2:50 PM CDT) Pathologist Sig nature BF COLOR Yellow [facility] TURBIDITY Slightly Turbid [facility] BF WBC Count 1,128 /L [facility] BF RBC Count <3000 /L [facility] Specimen Fluid - ASCITES Narrative Performed At The reference range and other method performance [facility] LAB[facility] specifications have not been established for this body fluid. The test results must be integrated into the clinical context for interpretation. Performing Organization Address City/State/Zipcode Phone Number [facility] CLIA: [id number], [address], [place] [address] T.PROTEIN BODY FLUID (12/29/2019 2:50 PM CDT) T.PROT BF 1,966.0 mg/dL [facility] UNSPUN BODY FLUID Yellow [facility] COLOR SERVICES UNSPUN BODY FLUID Slightly Cloudy [facility] CLARITY SERVICES SPUN BODY FLUID Yellow [facility] COLOR SERVICES SPUN BODY FLUID Clear [facility] CLARITY SERVICES Sediment The sediment [facility] volume is <0.1 SERVICES mLs of the total fluid volume of 5mL and its color is red. Specimen Fluid - ASCITES Narrative Performed At Test developed and characteristics determined by [facility] SERVICES Laboratory Services. Performing Organization Address City/[facility] Phone Number [facility] SERVICES CLIA: [id number], [address] [place] [address] 555 [facility] GLUCOSE BODY FLUID (12/29/2019 2:50 PM CDT) GLUCOSE BF 124 mg/dL [facility] UNSPUN BODY FLUID Yellow [facility] COLOR SERVICES UNSPUN BODY FLUID Slightly Cloudy [facility] CLARITY SERVICES SPUN BODY FLUID Yellow [facility] COLOR SERVICES SPUN BODY FLUID Clear [facility] CLARITY SERVICES Sediment The sediment [facility] volume is <0.1 SERVICES mLs of the total fluid volume of 5mL and its color is red. Specimen Fluid - ASCITES Narrative Performed At Test developed and characteristics determined by [facility] SERVICES Laboratory Services. Performing Organization Address City/State/Zipcode Phone Number [facility] SERVICES CLIA: [id number], [address] [place] [address] 555 [facility] PROTHROMBIN TIME / INR (12/29/2019 11:01 AM CDT) PROTIME PATIENT 21.6 (H) 12.0 - 14.7 [facility] LABORATORY INR 2.0Comment: Normal [facility] INR <1.1; Warfarin HOSPITAL Therapeutic range LABORATORY 2.0 to 3.0 or 2.5 to 3.5, depending upon the indications. Specimen Blood - VENOUS Performing Organization Address [facility] Cent[facility] Phone Number [facility] CLIA: [id number], [address] Lactic Acid Whole Blood (12/29/2019 11:01 AM CDT) Pathologist Sig nature LACTIC ACID 3.48 (H) 0.50 - 2.20 mmol/L [facility]ORY Specimen Blood - VENOUS Performing Organization Address [facility] Phone Number [facility] CLIA: [id number], [address] Lactic Acid Whole Blood (12/29/2019 8:45 AM CDT) Pathologist Sig nature LACTIC ACID 3.86 (H) 0.50 - 2.20 mmol/L [facility] LABOR[facility]ORY Specimen Blood - ARM, LEFT Performing Organization Address [facility] Phone Number [facility] CLIA: [id number], [address] [address] [facility] CT abdomen pelvis with contrast (12/29/2019 1:54 AM CDT) Specimen Impressions Performed At PACS/VR/DOSE 1. Changes of cirrhosis with sequelae of portal hypertension including large volume ascites, splenomegaly, and prominent portosystemic collaterals, including gastroesophageal varices. 2. Left adrenal mass (4.1 cm). Further characterizat ion with an adrenal mass protocol CT or MR is recommended. 3. Colonic diverticulosis. 4. Small to moderate-sized hiatal jaime ia. 5. Body wall anasarca. Preliminary Report Dictated by Resident: Felipe Martin I, Nguyen Peterson MD., have reviewed this study and agree with the above report. Narrative Performed At EXAM: CT ABDOMEN AND PELVIS WITH CONTRAS T PACS/VR/DOSE HISTORY: History of cirrhosis COMPARISON: None. TECHNIQUE AND FINDINGS: Axial CT of the abdomen and pelvis was performed after administration of 102 mL Omnipaque 350 intraveno us contrast. Coronal and sagittal reformatted images are prov ided. FINDINGS: LOWER THORAX: Please refer to the separately dictated CT chest for detailed intrathoracic findings. HEPATOBILIARY: The liver is shrunken with a nodular co ntour. Heterogenous attenuation of the liver. No focal lesions are identif ied within the limits of a single phase study. GALLBLADDER AND BILIARY TREE: No biliary ductal dilati on. Evaluation of the gallbladder and gallbladder wall is limi madai by presence of surrounding ascites. No radiopaque stones are identi fied. SPLEEN: 16.1 cm splenomegaly. PANCREAS: No ductal dilation or masses. ADRENAL GLANDS: A left adrenal mass measures 2.6 x 3.2 x 4.1 cm. The right adrenal gland is unremarkable. KIDNEYS: No hydronephrosis, stones, or m asses. PERITONEUM AND RETROPERITONEUM: Large vo lume ascites. No free air. LYMPH NODES: No lymphadenopathy. GI TRACT: Small to moderate hiatal herni a. Nondistention of stomach and colon limit their evaluation. Apparent m ild thickening may be due to underdistention and/or portal hypertensi ve colopathy and gastropathy. Diverticulosis. No bowel dilatation to s uggest obstruction. PELVIS/BLADDER: Status post hysterectomy . Bladder is collapsed. VESSELS: The main portal vein is patent. Prominent portosystemic collaterals incl uding gastroesophageal varices. Mild atherosclerotic disease. BONES AND SOFT TISSUES: No suspicious ly tic or sclerotic bony lesions. Body wall anasarca. Procedure Note [facility], Radiant Results Inft User - 2019 8:10 AM CDT EXAM: CT ABDOMEN AND PELVIS WITH CONTRAST HISTORY: History of cirrhosis COMPARISON: None. TECHNIQUE AND FINDINGS: Axial CT of the abdomen and pelvis was performed after administration of 102 mL Omnipaque 350 intravenous contrast. Coronal and sagittal reformatted images are prov ided. FINDINGS: LOWER THORAX: Please refer to the separa tely dictated CT chest for detailed intrathoracic findings. HEPATOBILIARY: The liver is shrunken wit h a nodular contour. Heterogenous attenuation of the liver. No focal lesio ns are identified within the limits of a single phase study. GALLBLADDER AND BILIARY TREE: No biliary ductal dilation. Evaluation of the gallbladder and gallbladder wall is limi madai by presence of surrounding ascites. No radiopaque stones are identi fied. SPLEEN: 16.1 cm splenomegaly. PANCREAS: No ductal dilation or masses. ADRENAL GLANDS: A left adrenal mass tobias ures 2.6 x 3.2 x 4.1 cm. The right adrenal gland is unremarkable. KIDNEYS: No hydronephrosis, stones, or m asses. PERITONEUM AND RETROPERITONEUM: Large vo lume ascites. No free air. LYMPH NODES: No lymphadenopathy. GI TRACT: Small to moderate hiatal herni a. Nondistention of stomach and colon limit their evaluation. Apparent m ild thickening may be due to underdistention and/or portal hypertensi ve colopathy and gastropathy. Diverticulosis. No bowel dilatation to s uggest obstruction. PELVIS/BLADDER: Status post hysterectomy . Bladder is collapsed. VESSELS: The main portal vein is patent. Prominent portosystemic collaterals incl uding gastroesophageal varices. Mild atherosclerotic disease. BONES AND SOFT TISSUES: No suspicious ly tic or sclerotic bony lesions. Body wall anasarca. IMPRESSION 1. Changes of cirrhosis with sequelae o f portal hypertension including large volume ascites, splenomegaly, and prominent portosystemic collaterals, including gastroesophageal varices. 2. Left adrenal mass (4.1 cm). Further characterization with an adrenal mass protocol CT or MR is recommended. 3. Colonic diverticulosis. 4. Small to moderate-sized hiatal herni a. 5. Body wall anasarca. Preliminary Report Dictated by Resident: Felipe Martin I, Nguyen Peterson MD., have reviewed this study and agree with the above report. Performing Organization Address City/State/Zipcode Phone Number PACS/VR/DOSE CT thorax with contrast (12/29/2019 1:54 AM CDT) Specimen Impressions Performed At PACS/VR/DOSE 1. Severe upper lobe pulmonary emphysema with at least mild superimposed interstitial lung disease. Follow-up wit h a high-resolution CT is recommended. 2. 6 mm right lower lobe nodule. A lung nodule protocol CT should be performed in one year to assess for stab ility. 3. Moderate size hiatal hernia. Fluid level in the eso phagus to the level of the aortic arch; this patient may be at risk for aspiration. Preliminary Report Dictated by Resident: Felipe Martin I, Cosmo Conner MD., have reviewed this study and agree with the above report. Narrative Performed At PROCEDURE: CT CHEST WITH CONTRAST - CHES T PROTOCOL PACS/VR/DOSE CLINICAL INDICATION: Shortness of breath FEVER, Cough. Hx of Liver disease with elevated LFTs, Ascites COMPARISON: Same day chest radiograph. TECHNIQUE: Helical CT of the chest was p erformed (lung apices to bases) after administration of contrast. MIP an d coronal & sagittal MPR images were generated and reviewed. (DFOV = 36. 0 cm) FINDINGS: Lower neck/thyroid: Unremarkable. Lungs/pleura: Centrilobular and parasept al emphysematous changes are present. Centrilobular emphysema is particularly evide nt in the upper lungs with severe bulla development. Some mild interstitial thickening is also seen, mostly at the right lung apex. No pleural effusi on or pneumothorax. Biapical pleural scarring. Atelectatic c hanges adjacent to the hiatal hernia. 6 mm right lower lobe lung nodule. Central airway: The central airways are patent. Mild b ronchiectasis of the upper lobes. Thoracic aorta and great vessels: Normal in diameter . Classic three-vessel branching pattern. Pulmonary arteries: Unremarkable. Heart and pericardium: No detectable cor onary arterial calcification. Unremarkable cardiac morphology and laurita cardium. Aortic annular calcifications. Mediastinum/Lymph nodes: No enlarged tho racic lymph nodes. Esophagus is mildly patulous with air fluid level see n as far cranial as the aortic arch. Thoracic spine and chest wall: Unremarkable, with norm al thoracic vertebral body heights. No aggressive osseous lesi ons. Other Lines/Tubes/Devices/Hardware: None Visualized upper abdomen: Moderate-sized hilar hernia. Gastroesophageal varices are seen. Please refer to the separately dicta madai CT abdomen pelvis for detailed findings. Procedure Note [facility], Radiant Results Inft User - 2019 2:40 PM CDT PROCEDURE: CT CHEST WITH CONTRAST - CHEST PROTOCOL CLINICAL INDICATION: Shortness of breath FEVER, Cough. Hx of Liver disease with elevated LFTs, Ascites COMPARISON: Same day chest radiograph. TECHNIQUE: Helical CT of the chest was p erformed (lung apices to bases) after administration of contrast. MIP an d coronal & sagittal MPR images were generated and reviewed. (DFOV = 36. 0 cm) FINDINGS: Lower neck/thyroid: Unremarkable. Lungs/pleura: Centrilobular and parasept al emphysematous changes are present. Centrilobular emphysema is part icularly evident in the upper lungs with severe bulla development. Some mild interstitial thickening is also seen, mostly at the right lung apex. No pleural effusion or pneumothorax. Biapical pleural scarring. Atelectatic c hanges adjacent to the hiatal hernia. 6 mm right lower lobe lung nodule. Central airway: The central airways are patent. Mild bronchiectasis of the upper lobes. Thoracic aorta and great vessels: Cheryle l in diameter. Classic three-vessel branching pattern. Pulmonary arteries: Unremarkable. Heart and pericardium: No detectable cor onary arterial calcification. Unremarkable cardiac morphology and laurita cardium. Aortic annular calcifications. Mediastinum/Lymph nodes: No enlarged tho racic lymph nodes. Esophagus is mildly patulous with air fluid level see n as far cranial as the aortic arch. Thoracic spine and chest wall: Unremarka ble, with normal thoracic vertebral body heights. No aggressive osseous lesi ons. Other Lines/Tubes/Devices/Hardware: None Visualized upper abdomen: Moderate-sized hilar hernia. Gastroesophageal varices are seen. Please refer to the [facility] dictated CT abdomen pelvis for detailed findings. IMPRESSION 1. Severe upper lobe pulmonary emphysema with at least mild superimposed interstitial lung disease. Follow-up wit h a high-resolution CT is recommended. 2. 6 mm right lower lobe nodule. A lung nodule protocol CT should be performed in one year to assess for stab ility. 3. Moderate size hiatal hernia. Fluid le john in the esophagus to the level of the aortic arch; this patient may be at risk for aspiration. Preliminary Report Dictated by Resident: Felipe Martin I, Cosmo Conner MD., have reviewed th is study and agree with the above report. Performing Organization Address City/[facility]/Zipcode Phone Number PACS/VR/DOSE URINALYSIS (12/28/2019 10:21 PM CDT) Pathologist Sig nature APPEARANCE Clear Clear [facility] COLOR Cele (A) Yellow [facility] PH 5.0 4.8 - 8.0 [facility] SP GRAVITY 1.014 1.003 - 1.030 [facility] GLU U QUAL Normal Normal [facility] BLOOD Negative Negative [facility] KETONES Negative Negative [facility] PROTEIN Negative Negative [facility] UROBILIN 2.0 mg/dL (A) Normal [facility] BILIRUBIN Negative Negative [facility] NITRITE Negative Negative [facility] LEUK OBINNA Negative Negative [facility] RBC/HPF <1 0 - 3 HPF [facility] WBC/HPF 1 0 - 5 HPF [facility] BACTERIA Negative Negative [facility] MUCOUS Slight (A) Negative LPF [facility] SQ EPITH 2 HPF [facility] Specimen Urine - URINE, CLEAN CATCH Performing Organization Address [facility]/Zipcode Phone Number [facility] CLIA: [id number], [address] [place] [address] XR CHEST 1 VW (12/28/2019 10:14 PM CDT) Specimen Impressions Performed At PACS/VR/DOSE Patchy retrocardiac opacities may repres ent basilar atelectasis however developing consolidative process cannot be excluded. F urther evaluation may be obtained with dedicated PA/lateral ra diographs or cross-sectional imaging if clinically indicated. Preliminary Report Dictated by Resident: Bandar Hoang MD., have reviewe d this study and agree with the above report. Narrative Performed At XR CHEST 1 VW PACS/VR/DOSE Comparison: None available History: AMS, Fever Findings: Suboptimal inspiratory volumes are noted with secondary bronchovascular crowding. Patchy retrocardiac opacities are noted. No pleural effusion or pneumothorax is identified. The cardiomediastinal silhouette is norm al in size. No acute osseous abnormality is present. Procedure Note [facility], Radiant Results Inft User - 2019 11:52 PM CDT XR CHEST 1 VW Comparison: None available History: AMS, Fever Findings: Suboptimal inspiratory volumes are noted with secondary bronchovascular crowding. Patchy retrocardiac opacities are noted. No pleural effusion or pneumothorax is identified. The cardiomediastinal silhouette is norm al in size. No acute osseous abnormality is present. IMPRESSION Patchy retrocardiac opacities may repres ent basilar atelectasis however developing consolidative process cannot be excluded. Further evaluation may be obtained with dedicated PA/lateral ra diographs or cross-sectional imaging if clinically indicated. Preliminary Report Dictated by Resident: Bandar Hoang MD., have reviewed this study and agree with the above report. Performing Organization Address City/[facility] Phone Number PACS/VR/DOSE COVID-19 ([facility] NOW RAPID TESTING) (12/28/2019 10:06 PM CDT) SARS-CoV-2 Rapid ID Not Detected Not Detected [facility] Specimen Swab - NASOPHARYNGEAL SWAB Narrative Performed At [facility] NOW COVID-19 Assay is an isothermal nucleic [facility] acid amplification test intended for the qualitative detection of nucleic acid from SARS-CoV-2 viral RNA in nasopharyngeal (MULE SPINNER) specimens. It is used under Emergency Use Authorization (EUA) by FDA. The limit of detection (LOD) of the assay is 125 Genome Equivalents/mL. A positive result is indicative of the presence of SARS-CoV-2 RNA. Clinical correlation with patient history and other diagnostic information is necessary to determine patient infection status. A negative (Not Detected) result does not preclude SARS-CoV-2 infection. In patients with clinical symptoms and other tests that are consistent with SARS-CoV-2 infection, negative results should be treated as presumptive negative and a new specimen should be tested with alternative PCR molecular test. Invalid: Please collect a new specimen for repeat patient testing if clinically indicated. Performing Organization Address City/[facility]/Zipcode Phone Number [facility] CLIA: [id number], [address], [place] [address] Lactic Acid Whole Blood (12/28/2019 10:04 PM CDT) Pathologist Sig nature LACTIC ACID 4.10 0.30 - 2.60 mmol/L [facility] Specimen Blood - VENOUS Performing Organization Address City/[facility]/Zipcode Phone Number [facility] CLIA: [id number], [address], [place] [address] AMMONIA, PLASMA (12/28/2019 10:04 PM CDT) Pathologist Sig nature AMMONIA <9 (L)Comment: 9 - 33 umol/L [facility] Slight hemolysis [facility]ITAL LAB[facility] Specimen Blood - VENOUS Performing Organization Address City/[facility] Cent[facility] Phone Number [facility] CLIA: [id number], [address], [place] [address] CBC WITH DIFFERENTIAL (12/28/2019 10:03 PM CDT) WBC 6.85 4.30 - 11.10 [facility] 10*3/L [facility] RBC 2.87 (L) 3.93 - 5.25 [facility] 10*6/L [facility] HGB 11.3 (L) 11.6 - 15.0 [facility] g/dL [facility] HCT 33.3 (L) 35.7 - 45.2 % [facility] MCV 116.0 (H) 80.6 - 95.5 [facility] LABORATORY MCH 39.4 (H) 25.9 - 32.8 [facility] LABORATORY MCHC 33.9 31.6 - 35.1 [facility] g/dL [facility] RDW-SD 73.7 (H) 39.0 - 49.9 [facility] LAB[facility]ATORY RDW-CV 17.2 (H) 12.0 - 15.5 % [facility] PLT 92 (L) 166 - 358 [facility] 10*3/L [facility] MPV 9.8 9.5 - 12.9 fL [facility] IPF % 1.4Comment: Platelet 1.3 - 7.7 % [facility] count measured by HOSPITAL fluorescence method. LABORATORY NRBC/100 WBC 0.3 0.0 - 10.0 [facility] /100 WBCs [facility] NRBC x10^3 0.02 10*3/L [facility] GRAN MAT (NEUT) % 89.1 % [facility] IMM GRAN % 0.40 % [facility] LYMPH % 5.8 % [facility] MONO % 3.9 % [facility] EOS % 0.7 % [facility] BASO % 0.1 % [facility] GRAN MAT 6.09 1.88 - 7.09 [facility] x10^3(ANC) 10*3/uL HOSPITAL LAB[facility] IMM GRAN x10^3 0.03 0.00 - 0.06 [facility] 10*3/uL [facility] LYMPH x10^3 0.40 (L) 1.32 - 3.29 [facility] 10*3/uL [facility] MONO x10^3 0.27 (L) 0.33 - 0.92 [facility] 10*3/uL [facility]OSPITAL LAB[facility]ORY EOS x10^3 0.05 0.03 - 0.39 [facility] 10*3/uL [facility] BASO x10^3 <0.03 0.01 - 0.07 [facility] 10*3/uL [facility] PLT ESTIMATE Decreased (A) Normal [facility] Specimen Blood - VENOUS Performing Organization Address City/State/Zipcode Phone Number [facility] CLIA: [id number], [address], [place] [address] GRAM NEGATIVE BLOOD PATHOGENS DNA PROBE-AEROBIC (12/28/2019 10:02 PM CDT) Pathologist Sig nature Klebsiella oxytoca Positive (A) Negative [facility] SERVICES Specimen Blood - ARM, RIGHT Narrative Performed At See blood culture result for additional information. [facility] SERVICES Testing included eight identification and six resistan ce marker targets. Performing Organization Address City/State/Zipcode Phone Number [facility] CLIA: [id number], [address] [place], [place] [address] [facility] BLOOD CULTURE WORKUP (12/28/2019 10:02 PM CDT) Blood Culture Klebsiella oxytoca [facility] Workup SERVICES Gram stain Isolated from [facility] aerobic bottle Gram HOSPITAL LAB[facility]ORY negative bacilli Specimen Blood - ARM, RIGHT Organism Antibiotic Method Susceptibility Klebsiella oxytoca Amoxacillin/Clavulanic SUSCEPTIBILITY TESTING <=2: Susceptible acid Klebsiella oxytoca Ampicillin SUSCEPTIBILITY TESTING >=32: Resistant Klebsiella oxytoca Ampicillin/Sulbactam SUSCEPTIBILITY TESTING 4 : Susceptible Klebsiella oxytoca Cefazolin SUSCEPTIBILITY TESTING <=4: S usceptible Klebsiella oxytoca Cefotaxime SUSCEPTIBILITY TESTING <=1: S usceptible Klebsiella oxytoca Ciprofloxacin SUSCEPTIBILITY TESTING <=0.25 : Susceptible Klebsiella oxytoca Ertapenem SUSCEPTIBILITY TESTING <=0.5: Susceptible Klebsiella oxytoca Gentamicin SUSCEPTIBILITY TESTING <=1: S usceptible Klebsiella oxytoca Levofloxacin SUSCEPTIBILITY TESTING <=0.12 : Susceptible Klebsiella oxytoca Piperacillin/Tazobactam SUSCEPTIBILITY TESTIN G <=4: Susceptible Klebsiella oxytoca Trimethoprim/Sulfametho SUSCEPTIBILITY TESTIN G <=20: Susceptible xazole Performing Organization Address City/[facility] Cent[facility] Phone Number [facility] SERVICES CLIA: [id number], [address] [place], [place] [address] [facility] CLIA: [id number], [address] [place] [address] TROPONIN I (12/28/2019 10:02 PM CDT) [facility] TROPONIN I 0.034 <=0.034 ng/mL [facility] Specimen Blood - VENOUS Narrative Performed At Equal or Less than 0.034 ng/ml---Normal [facility] Note: Cardiac troponin begins to rise 3-4 hours after the onset of ischemia. Repeat in 4-6 hours if the sample was drawn within 3-4 hours of the onset of the symptom and found normal. Between 0.035 and 0.120 ng/mL--- Borderline. Questionable myocardial injury or necros is Note: Serial measurement may be necessary to confirm or exclude the diagnosis of myocardial injury or necrosis; Clinical correlation (symptoms, EKGs, imaging studies, and others) required; Repeat in 4-6 hours if clinically indicated. Equal or Higher than 0.121 ng/mL---Abnormal. Myocardial Injury or Necrosis Likely Biotin has been reported to cause a negative bias, interpret results relative to patient's use of biotin. Performing Organization Address City/[facility] Cent[facility]ode Phone Number [facility] CLIA: [id number], [address], [place] [address] LIPASE (12/28/2019 10:02 PM CDT) Pathologist Sig nature LIPASE 237 (H) 0 - 220 U/L [facility] Specimen Blood - VENOUS Performing Organization Address City/State/Zipcode Phone Number [facility] CLIA: [id number], [address] COMP. METABOLIC PANEL (70861) (12/28/2019 10:02 PM CDT) NA 133 (L) 135 - 145 [facility] mmol/L [facility] K 3.1 (L) 3.5 - 5.0 [facility] mmol/L [facility] CL 98 98 - 108 mmol/L [facility] CO2 TOTAL 23 23 - 31 mmol/L [facility] AGAP 12 2 - 16 [facility] BUN 19 7 - 23 mg/dL [facility] GLUCOSE 72 70 - 110 mg/dL [facility] CREATININE 1.35 (H) 0.50 - 1.04 [facility] mg/dL [facility] TOTAL BILI 7.2 (H) 0.1 - 1.1 mg/dL [facility] CALCIUM 8.8 8.6 - 10.6 [facility] mg/dL [facility] T PROTEIN 7.0 6.3 - 8.2 g/dL [facility] ALBUMIN 3.1 (L) 3.5 - 5.0 g/dL [facility] ALK PHOS 69 34 - 122 U/L [facility] ALTv 16 5 - 35 U/L [facility] AST(SGOT) 51 (H) 13 - 40 U/L [facility] eGFR Calculation 39.4 mL/min/1.73m2 [facility] ([facility]AT[facility] Portuguese) eGFR Calculation 47.7 mL/min/1.73m2 [facility] () [facility] Specimen Blood - VENOUS Narrative Performed At [facility] ([facility] LAB[facility] and Staging of Kidney Disease* + + +- + | GFR (mL/min/1.73 m2) | With Kidney Damage | Without Kidney Damage + + +- + | >90 | Stage one | Normal + + +- + | 60-89 | Stage two | Decreased GFR + + +- + | 30-59 | Stage three | Stage three + + +- + | 15-29 | Stage four | Stage four + + +- + | <15 (or dialysis) | Stage five | Stage five + + +- + *Each stage assumes the associated GFR level has been in effect for at least three months. Stages 1 to 5, with or without kidney disease, indicate chronic kidney disease. Notes: Determination of stages one and two (with eGFR >59mL/min/1.73 m2) requires estimation of kidney damage for at least three months as defined by structural or functional abnormalities of the kidney, manifested by either: Pathological abnormalities or Markers of kidney damage (including abnormalities in the composition of the blood or urine or abnormalities in imaging tests). Performing Organization Address City/State/Zipcode Phone Number [facility] CLIA: [id number], [address], [place] [address] documented in this encounter Visit Diagnoses Diagnosis Hypokalemia - Primary Hypopotassemia Confusion Unspecified psychosis Fever and chills Fever, unspecified Anasarca Edema Cirrhosis of liver with ascites, unspeci fied hepatic cirrhosis type Lactic acid increased Acidosis Anemia of chronic disease Anemia of other chronic disease Thrombocytopenia Thrombocytopenia, unspecified ANDERS (acute kidney injury) Acute kidney failure, unspecified Obesity (BMI 30-39.9) Obesity, unspecified documented in this encounter Administered Medications Medication Order MAR Action Action Date Dose Rate Site acetaminophen (TYLENOL) tablet 650 mg 650 mg, Oral, Q6HPRN, Starting Fri12/29/19 at 0521, Unt il Discontinued, Routine, Pain (scale 1-3) calcitrioL (ROCALTROL) capsule 0.5 mcg Given 12/31/2019 9:10 AM CDT 0.5 mcg 0.5 mcg, Oral, DAILY, First dose on Deepali 12/30/19 at 2115, Until Discontinued, Routine Given 12/30/2019 10:22 PM CDT 0.5 mcg cefTRIAXone (ROCEPHIN) 1,000 mg in NaCl Given 12/31/2019 8:18 A M CDT 1,000 mg 0.9% (NS) 50 mL MINI-BAG 1,000 mg, IV Piggyback, Q24H ABX, First dose on Fri12/29/19 at 0745, Until Discontinued, 50 mL, Reason for Anti-Infective: Empiric Therapy for Suspected Infection, Empiric Therapy Site: Abdominal, Duration of therapy: 72 hours Given 12/30/2019 11:52 AM CDT 1,000 mg Given 12/29/2019 8:20 AM CDT 1,000 mg furosemide (LASIX) injection 40 mg Given 12/31/2019 9:10 AM CDT 40 mg 40 mg, Slow IV Push, Q12H, First dose on Fri12/29/19 at 0800, Until Discontinued, Routine Given 12/30/2019 8:45 PM CDT 40 mg Given 12/30/2019 11:52 AM CDT 40 mg KCL (KLOR-CON M20) tablet 20 mEq 20 mEq, Oral, DAILY, First dose on Fri at 0900, Until Discontinued, Routine ondansetron (ZOFRAN (PF)) injection 4 mg 4 mg, Slow IV Push, Q6HPRN, Starting Fri12/29/19 at 052 1, Until Discontinued, Routine, Nausea and Vomiting (N/V) sodium chloride tablet 1 g Given 12/31/2019 11:47 AM CDT 1 g 1 g, Oral, TID MEALS, First dose on Fri12/31/19 at 1200, Until Discontinued, Routine spironolactone (ALDACTONE) tablet 25 mg Given 12/31/2019 9:10 AM CDT 25 mg 25 mg, Oral, DAILY, First dose on Fri12/30/19 at 2115, Until Discontinued, Routine Given 12/30/2019 10:22 PM CDT 25 mg Medication Order MAR Action Action Date Dose Rate Site D5W 0.45% NaCl (1/2NS) 1 L + Rate Change 12/29/2019 1:47 PM CDT 75 mL/hr KCL 20 mEq IV Infusion, at 75 mL/hr, CONTINUOUS, Starting Fri12/29/19 at 1045, Until Fri12/30/19 at 0857, Routine iohexol (OMNIPAQUE 350 BULK-100 mL) Given 12/29/2019 2:00 AM CD T 102 mL injection 102 mL 102 mL, Intravenous, ONCE, 1 dose, Fri12/29/19 at 0200, Routine KCL (KLOR-CON M20) tablet 40 mEq Given 12/30/2019 10:22 PM CDT 40 mEq 40 mEq, Oral, ONCE NOW, 1 dose, Depeali 12/30/19 at 2215, Routine KCL (KLOR-CON M20) tablet 40 mEq Given 12/31/2019 9:10 AM CDT 40 mEq 40 mEq, Oral, ONCE, 1 dose, Fri12/31/19 at 0945, Routine KCL (POTASSIUM CHLORIDE) 20 mEq in D5W New Bag 12/29/2019 5:1 7 AM CDT 100 mL/hr 0.45% NaCl (1/2NS) 1,000 mL IV Solution IV Infusion, CONTINUOUS, Starting Fri12/29/19 at 0130, Until Fri12/29/19 at 0806, 1,000 mL, at 100 mL/hr KCL 20 mEq/15 mL solution 40 mEq Given 12/29/2019 12:18 AM CDT 40 mEq 40 mEq, Oral, ONCE, 1 dose, Fri12/29/19 at 0115, CHRISTINE magnesium sulfate in water 2 gram/50 mL (4 %) New Bag 9:10 AM CDT 2 g infusion 2 g 2 g, IV Piggyback, ONCE, 1 dose, Fri12/31/19 at 0945, Routine pantoprazole (PROTONIX) 40 mg in NaCl 0.9% Given 12/31/2019 12:3 0 PM CDT 40 mg (NS) 20 mL syringe 40 mg, IV Push, ONCE, 1 dose, Fri12/31/19 at 1230, 20 mL documented in this encounter Insurance Payer Benefit Plan Subscriber ID Effective Phone Address Typ e / Group Dates AETNA - AETNA [id number] 2019-Prese P O BOX Medic are Adv MANAGED MEDICARE ADV nt [id number] O MEDICARE [place] [phone] documented as of this encounter
--- OUTSIDE RECORDS SUMMARY | 2020-01-14 10:26 | XMS REPORT | Summary of Care ---
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 [facility]- [address] [place] [id number] Allergies Active Allergy Reactions Severity Noted Date Comments Erythromycin Other - See comments 12/28/2019 Patient cant remember Levofloxacin Nausea and/or 12/28/2019 Vomiting Sulfa (Sulfonamide Other - See comments 12/28/2019 C ant remember Antibiotics) Tetracycline Rash 12/28/2019 documented as of this encounter (statuses as of 01/03/2020) Medications Medication Sig Dispensed Refills Start Date [...] as of this encounter (statuses as of 01/03/2020) Active Problems Problem Noted Date Hypokalemia 12/29/2019 Obesity (BMI 30-39.9) 12/29/2019 documented as of this encounter (statuses as of 01/03/2020) Social History Tobacco Use Types Packs/Day Years [...] of this encounter Last Filed Vital Signs Not on filedocumented in this encounter Plan of Treatment Health Maintenance Due Date [...] year history documented as of this encounter Results Not on filedocumented in this encounter Insurance Payer Benefit Plan Subscriber ID Effective Phone Address Typ e / Group Dates AETNA - AETNA MEBTLZCD 2019-Prese P O BOX Medic are Adv MANAGED MEDICARE ADV nt [id number] [place] [address] documented as of this encounter
[2020-01-14 11:19] LABS: Absolute Lymphocytes (CBC) 0.7 K/uL (0.7-4.9); Basophils % 0.5 % (0-1.3); Hematocrit 29.1 % (36.0-45.0); Lymphocytes % 21.5 % (15.3-44.8); MPV 8.5 fL (7.6-11.3); RBC Red Blood Cell Count 2.47 M/uL (3.86-4.86)
[2020-01-14 11:44] LABS: Albumin 2.3 g/dL (3.4-5.0); Bilirubin Total 4.5 mg/dL (0.2-1.0); Potassium 3.4 mmol/L (3.5-5.1); Protein, Total 6.6 g/dL (6.4-8.2)
--- NOTE | 2020-01-14 12:30 | RAD REPORT ---
EXAM DESCRIPTION: RAD - Chest Pa And Lat (2 Views) - 01/14/2020 12:03 pm CLINICAL HISTORY: DYSPNEA COMPARISON: None TECHNIQUE: Frontal and lateral views of the chest were obtained. FINDINGS: The lungs are underinflated. Diffuse interstitial opacification is present on this baselin e study. No peripheral mass or consolidation. Hiatal hernia is present small to moderate in size. He art size is normal and central vasculature is within normal limits. No pleural effusion or pneumotho rax seen. No acute bony finding noted. No aortic abnormality. IMPRESSION: No focal mass or consolidation. Acute failure or volume overload are doubtful. Diffusely prominent interstitial pattern throughout the lung ji on a baseline study. This is most likely chronic fibrotic change. Acute edema or interstitial infiltrate could be masked.
[2020-01-14 12:33] LABS: Protime INR 1.18
[2020-01-14 12:34] LABS: Anisocytosis 2+; Blood Morphology Comment NOTED (NOT SEEN); Hypochromasia 1+; Macrocytosis 2+; Ovalocytes 1+; Platelet Estimate DECR; Urine White Blood Cell Casts OK
--- NOTE | 2020-01-14 13:41 | EDPHYS ---
Physician Documentation [facility] Name: Oleksandr Christian Age: 64 yrs Sex: Female : 1955 Arrival Date: 01/14/2020 Time: 10:21 Bed 20 Private MD: ED Physician Epifanio Rogers HPI: 01/13 13:35 This 64 yrs old Female presents to ER via Ambulatory with complaints of kb Shortness Of Breath, HASNT BEEN ABLE TO KEEP DOWN FOOD. 13:35 The patient has shortness of breath at rest. Onset: The symptoms/episode began/occurred kb 2 day(s) ago. Duration: The symptoms are continuous. The patient's shortness of breath has no apparent modifying factors. Associated signs and symptoms: Pertinent positives: ascites. Severity of symptoms: At their worst the symptoms were moderate in the emergency department the symptoms are unchanged. The patient has experienced similar episodes in the past, a few times. The patient has been recently seen by a physician:. Pt reports she thinks she needs a paracentesis. States she has nonalcoholic cirrhosis of the liver and it has been "acting up" over the last 6 weeks. States she has needed 2 paracentesis done over the last 6 weeks, the last one was 12/29/19 at [facility]. States her breathing has gotten shallow because of the abd swelling and she can't eat anything because it's all pushed away due to the fluid. . Historical: - Allergies: 10:31 Erythromycin; hb 10:31 Levaquin; hb 10:31 Sulfa (Sulfonamide Antibiotics); hb 10:31 TETRACYCLINES; hb - PMHx: 10:31 Anxiety; COPD; Hypertension; ARAUZ; hb - PSHx: 10:31 Tonsillectomy; Hysterectomy; Knee surgery; hb - Immunization history:: Adult Immunizations up to date. - Social history:: Smoking status: Patient denies any tobacco usage or history of. ROS: 13:34 Constitutional: Negative for fever, chills, and weight loss, ENT: Negative for injury, kb pain, and discharge, Neck: Negative for injury, pain, and swelling, Cardiovascular: Negative for chest pain, palpitations, and edema, Back: Negative for injury and pain, : Negative for injury, bleeding, discharge, and swelling, MS/Extremity: Negative for injury and deformity, Skin: Negative for injury, rash, and discoloration, Neuro: Negative for headache, weakness, numbness, tingling, and seizure. 13:34 Respiratory: Positive for shortness of breath. 13:34 Abdomen/GI: Positive for abdominal distension. Exam: 13:34 Constitutional: This is a well developed, well nourished patient who is awake, alert, kb and in no acute distress. Head/Face: Normocephalic, atraumatic. Chest/axilla: Normal chest wall appearance and motion. Nontender with no deformity. No lesions are appreciated. Cardiovascular: Regular rate and rhythm with a normal S1 and S2. No gallops, murmurs, or rubs. Normal PMI, no JVD. No pulse deficits. Back: No spinal tenderness. No costovertebral tenderness. Full range of motion. Skin: Warm, dry with normal turgor. Normal color with no rashes, no lesions, and no evidence of cellulitis. MS/ Extremity: Pulses equal, no cyanosis. Neurovascular intact. Full, normal range of motion. Neuro: Awake and alert, GCS 15, oriented to person, place, time, and situation. Cranial nerves II-XII grossly intact. Motor strength 5/5 in all extremities. Sensory grossly intact. Cerebellar exam normal. Normal gait. 13:34 Respiratory: mild respiratory distress is noted, Respirations: normal, Breath sounds: decreased breath sounds, that are mild, are located in both bases. 13:34 Abdomen/GI: Inspection: distension, that is moderate, Bowel sounds: normal, in all quadrants, Palpation: nontender, in all quadrants. 13:41 Cardiovascular: Edema: 3+ edema to level of left ankle, left foot, left toes, right kb ankle, right foot and right toes. Vital Signs: 10:28 BP 122 / 65; Pulse 82; Resp 24; Temp 98.1; Pulse Ox 98% on R/A; Weight 95.71 kg; Height hb 5 ft. 4 in. (162.56 cm); Pain 2/10; 11:07 BP 112 / 64; Pulse 75; Resp 20; Pulse Ox 99% ; ah 11:45 BP 108 / 61; Pulse 67; Resp 15; Pulse Ox 99% ; ah 12:23 BP 105 / 69; Pulse 69; Resp 19; Pulse Ox 100% ; ah 13:00 BP 107 / 56; Pulse 66; Resp 13; Pulse Ox 100% ; ah 15:15 BP 106 / 41; Pulse 74; Resp 17; Temp 97.0; Pulse Ox 100% ; ah 16:30 BP 109 / 42; Pulse 74; Resp 16; Pulse Ox 99% ; ah 10:28 Body Mass Index 36.22 (95.71 kg, 162.56 cm) hb MDM: 10:40 Patient medically screened. kb 10:47 Data reviewed: vital signs, nurses notes. Data interpreted: Pulse oximetry: on room air kb is 98 %. Interpretation: normal. 11:02 Physician consultation: Rito Restrepo MD was contacted at 10:50, can work US guided kb paracentesis into schedule today . 12:30 Physician consultation: Lorenzo Ocampo DO was contacted at 12:30, regarding admission, kb to the medical/surgical unit. patient's condition, after a discussion of the case, a recommendation for transfer for higher level of care is made, pt has been seen by Dr Sahni at [facility] recently for possible transplant. Dr Ocampo and Fabio believe pt needs to go to the Liver team there for continuity of care. 12:36 ED course: MELD score: 27. kb 13:02 ED course: Dr Sahni accepts pt for consult . ED course: Dr Ordoñez, hospitalist, accepts pt for transfer. Would like paracentesis done here if already scheduled with cultures and cell counts obtained from fluid. . 13:22 Counseling: I had a detailed discussion with the patient and/or guardian regarding: the kb historical points, exam findings, and any diagnostic results supporting the discharge/admit diagnosis, lab results, radiology results, the need to transfer to another facility. 01/13 10:46 Order name: Basic Metabolic Panel; Complete Time: 11:46 kb 01/13 10:46 Order name: CBC with Diff; Complete Time: 12:36 kb 01/13 10:46 Order name: Hepatic Function; Complete Time: 11:46 kb 01/13 10:46 Order name: Lipase; Complete Time: 11:46 kb 01/13 11:28 Order name: CBC Smear Scan; Complete Time: 12:36 EDMS 01/13 11:54 Order name: Protime (+inr); Complete Time: 12:36 kb 01/13 10:46 Order name: Chest Pa And Lat (2 Views) XRAY; Complete Time: 12:33 kb 01/13 10:46 Order name: IV Saline Lock; Complete Time: 11:31 kb 01/13 10:46 Order name: Labs collected and sent; Complete Time: 11:09 kb 01/13 10:55 Order name: Paracentesis Proc Guidance [facility] 01/13 11:54 Order name: Ptt, Activated; Complete Time: 12:36 kb 01/13 13:21 Order name: Body Fluid Culture 01/13 13:21 Order name: Fluid Cell Count,Body; Complete Time: 15:58 kb Administered Medications: No medications were administered Disposition: 01/14 08:34 Co-signature as Attending Physician, Epifanio Rogers MD I agree with the assessment and kdr plan of care. Disposition: 01/14/20 13:[address] [facility]. Diagnosis are Unspecified cirrhosis of liver, Acute kidney failure. - Reason for transfer: Higher level of care. - Accepting physician is Tiago. - Condition is Stable. - Problem is new. - Symptoms have improved. Signatures: Dispatcher [employer] [facility] Yvonne Jiang, GERIATRIC PHYSICAL THERAPIST-C GERIATRIC PHYSICAL THERAPIST-Ckb Epifanio Rogers MD MD [facility] Shelley Garnett RN RN Corrections: (The following items were deleted from the chart) 01/13 13:41 13:34 Constitutional: This is a well developed, well nourished patient who is awake, kb alert, and in no acute distress. Head/Face: Normocephalic, atraumatic. Chest/axilla: Normal chest wall appearance and motion. Nontender with no deformity. No lesions are appreciated. Cardiovascular: Regular rate and rhythm with a normal S1 and S2. No gallops, murmurs, or rubs. Normal PMI, no JVD. No pulse deficits. Back: No spinal tenderness. No costovertebral tenderness. Full range of motion. Skin: Warm, dry with normal turgor. Normal color with no rashes, no lesions, and no evidence of cellulitis. MS/ Extremity: Pulses equal, no cyanosis. Neurovascular intact. Full, normal range of motion. Neuro: Awake and alert, GCS 15, oriented to person, place, time, and situation. Cranial nerves II-XII grossly intact. Motor strength 5/5 in all extremities. Sensory grossly intact. Cerebellar exam normal. Normal gait. kb 16:45 13:41 01/14/2020 13:[address] [facility]. hb Diagnosis is Unspecified cirrhosis of liver; Acute kidney failure. Reason for transfer: Higher level of care. Accepting physician is Tiago. Condition is Stable. Problem is new. Symptoms have improved. kb
--- NOTE | 2020-01-14 13:41 | ER ---
Nurse's Notes [facility] Name: Oleksandr Christian Age: 64 yrs Sex: Female : 1955 Arrival Date: 01/14/2020 Time: 10:21 Bed 20 Private MD: Diagnosis: Unspecified cirrhosis of liver;Acute kidney failure Presentation: 01/13 10:28 Chief complaint: Patient states: "I am a liver patient, Dr. Mccarthy said I may need hb another paracentesis." Reports abdominal swelling and SOB x 3 days. Coronavirus screen: Proceed with normal triage. Ebola Screen: No symptoms or risks identified at this time. Initial Sepsis Screen: Does the patient meet any 2 criteria? No. Patient's initial sepsis screen is negative. Does the patient have a suspected source of infection? No. Patient's initial sepsis screen is negative. Risk Assessment: Do you want to hurt yourself or someone else? Patient reports no desire to harm self or others. Onset of symptoms was January 12, 2020. 10:28 Method Of Arrival: Ambulatory hb 10:28 Acuity: GAURI 3 hb Triage Assessment: 11:26 Respiratory: the patient has moderate shortness of breath. Historical: - Allergies: 10:31 Erythromycin; hb 10:31 Levaquin; hb 10:31 Sulfa (Sulfonamide Antibiotics); hb 10:31 TETRACYCLINES; hb - PMHx: 10:31 Anxiety; COPD; Hypertension; ARAUZ; hb - PSHx: 10:31 Tonsillectomy; Hysterectomy; Knee surgery; hb - Immunization history:: Adult Immunizations up to date. - Social history:: Smoking status: Patient denies any tobacco usage or history of. Screenin:25 Abuse screen: Denies threats or abuse. Nutritional screening: No deficits noted. Tuberculosis screening: No symptoms or risk factors identified. Fall Risk None identified. Assessment: 10:40 General: Appears uncomfortable, Behavior is calm, cooperative, appropriate for age. Pain: Denies pain. Neuro: Level of Consciousness is awake, alert, obeys commands, Oriented to person, place, time, situation. Cardiovascular: Heart tones S1 S2 present Capillary refill < 3 seconds Patient's skin is warm and dry. Pulses are palpable in right radial artery and left radial artery Rhythm is sinus rhythm. Respiratory: Airway is patent Respiratory effort is even, unlabored, Respiratory pattern is symmetrical, tachypnea Breath sounds are clear Onset: The symptoms/episode began/occurred 2 days agp. GI: Abdomen is distended, noted to have ascites, Last meal was January 13, 2020. Bowel sounds present X 4 quads. Reports bloating, intolerance of food, nausea. Derm: Skin is intact, is healthy with good turgor. Musculoskeletal:. 11:40 Reassessment: Patient and/or family updated on plan of care and expected duration. Pain ah level reassessed. Patient is alert, oriented x 3, equal unlabored respirations, skin warm/dry/pink. awaiting on lab results. 12:40 Reassessment: Patient and/or family updated on plan of care and expected duration. Pain ah level reassessed. Awaiting to go have a paracentesis performed and a decision to be made on placement/transfer. Son at bedside. Pt aware with no needs voiced at this time. 14:05 Reassessment: Pt to paracentesis via stretcher. 15:35 Reassessment: Report called to FRANCISCA Mckinney at [facility]. Pt to go to room 1515. Pt informed. 15:47 Reassessment: Awaiting on available ambulance to transfer patient. Pt informed of ah possible wait time. Vital Signs: 10:28 BP 122 / 65; Pulse 82; Resp 24; Temp 98.1; Pulse Ox 98% on R/A; Weight 95.71 kg; Height hb 5 ft. 4 in. (162.56 cm); Pain 2/10; 11:07 BP 112 / 64; Pulse 75; Resp 20; Pulse Ox 99% ; ah 11:45 BP 108 / 61; Pulse 67; Resp 15; Pulse Ox 99% ; ah 12:23 BP 105 / 69; Pulse 69; Resp 19; Pulse Ox 100% ; ah 13:00 BP 107 / 56; Pulse 66; Resp 13; Pulse Ox 100% ; ah 15:15 BP 106 / 41; Pulse 74; Resp 17; Temp 97.0; Pulse Ox 100% ; ah 16:30 BP 109 / 42; Pulse 74; Resp 16; Pulse Ox 99% ; ah 10:28 Body Mass Index 36.22 (95.71 kg, 162.56 cm) hb ED Course: 10:21 Patient arrived in ED. fj1 10:31 Triage completed. hb 10:31 Arm band placed on. hb 10:40 Yvonne Jiang FNP-C is [facility]. kb 10:40 Epifanio Rogers MD is Attending Physician. kb 10:47 Esperanza Donald, RN is Primary Nurse. 11:24 Inserted saline lock: 22 gauge in right forearm, using aseptic technique. ,using sv aseptic technique. diffusics Flushed right forearm with 5 ml normal saline. 11:25 Missed attempt(s): 20 gauge in left antecubital area. Bleeding controlled, band aid ah applied, catheter tip intact. 11:25 Missed attempt(s): 22 gauge in left forearm. Bleeding controlled, band aid applied, ah catheter tip intact. 11:26 Patient has correct armband on for positive identification. Placed in gown. Bed in low ah position. Call light in reach. Side rails up X 1. Adult w/ patient. surveillance system monitor on. Pulse ox on. NIBP on. 11:58 Chest Pa And Lat (2 Views) XRAY In Process Unspecified. EDMS 12:18 Ptt, Activated Sent. jp3 12:18 Protime (+inr) Sent. jp3 14:50 Paracentesis Proc Guidance In Process Unspecified. EDMS 15:01 pt accepted in transfer to [facility] [place] by BECKY Butler. bd Administered Medications: No medications were administered Outcome: 13:41 ER care complete, transfer ordered by . kb 16:45 Patient left the ED. hb Signatures: Dispatcher [employer] EDMS Yvonne Jiang FNP-C FNP-Mariana Hodge Stephanie, RN RN sv Baxter, Heather, FRANCISCA ESPINOSA Celestine Gonsales jp3 Mick Hsieh fj1 Esperanza Donald, RN RN
[2020-01-14 15:55] LABS: Body Fluid Source PERITONEAL; Color of fluid Yellow (COLORLESS)
[2020-01-14 15:56] LABS: Appearance SLT. TURBID (CLEAR); Body Fluid WBC 68 /mm^3
[2020-01-14 16:57] VITALS: O2SAT 100
[2020-01-14 17:00] VITALS: BP 106/41; TEMP 97
--- NOTE | 2020-01-15 08:42 | RAD REPORT ---
EXAM DESCRIPTION: US - Paracentesis Proc Guidance - 01/14/2020 2:50 pm CLINICAL HISTORY: Ascites COMPARISON: Paracentesis procedure December 13, 2019 TECHNIQUE: The patient presents from the emergency department for urgent ultrasound-guided paracente sis. The procedure, risks and alternatives were discussed with the patient in detail. Oral and writt en consent were obtained. Time out procedure was performed. The patient had no contraindicated mehran rgy or medication history. PT, INR values within acceptable limits. Preliminary sonographic evaluation identified a right lower quadrant access site. The skin and deepe r tissues were anesthetized with 1 percent lidocaine. Under direct sonographic visualization, a para centesis catheter was advanced into the peritoneal cavity. Approximately 20 mL of ascites retained fo r laboratory studies. Large volume drainage was initiated. Approximately 8 liters of ascites removed . At the conclusion of the procedure, catheter was withdrawn and a bandage placed at the puncture site. Patient was transferred back to the emergency department for further care and any necessary albumin therapy as determined by the attending clinician or consulting GI service. Patient is apparently pend ing transfer to a tertiary facility for further care. IMPRESSION: Ultrasound-guided paracentesis as detailed.
== END 2020-01-14 16:45 | disposition short-term general hospital (02) ==
LOC: ER 10:17
PROC: 0W9G3ZZ Drainage of Peritoneal Cavity, Percutaneous Approach (ICD-10-PCS; principal; 2020-01-14)
DX: K74.60 Unspecified cirrhosis of liver (principal); N17.9 Acute kidney failure, unspecified; R18.8 Other ascites; Z88.1 Allergy status to other antibiotic agents; Z88.3 Allergy status to other anti-infective agents
CPT/HCPCS: 36415; 49083; 71046; 80048; 80076; 83690; 85025; 85610; 85730; 87070; 89050; 99284

== ENCOUNTER 2020-02-18 09:04 | Day surgery (SDC) | payer OTHER ==
--- OUTSIDE RECORDS SUMMARY | 2020-02-18 08:51 | XMS REPORT | Clinical Summary ---
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
--- OUTSIDE RECORDS SUMMARY | 2020-02-18 08:55 | XMS REPORT | Clinical Summary ---
:1955 Author Organization Formerly [facility] Address [address] [place] [address] Care Team Providers Name Role Phone Zeinab English JUAN Primary Care Provider Allergies Active Allergy Reactions Severity Noted Date Comments Erythromycin Hives Medium 07/01/2016 Levofloxacin Other (See Comments) High 07/01/2016 Vomitin g and diarrhea Sulfa (Sulfonamide Rash Low 07/01/2016 Antibiotics) Tetracyclines Hives High 07/01/2016 Medications Medication Sig Dispensed Refills Start End Date Status Date calcitrioL Take 1 capsule 30 capsule 0 Act rosalba (ROCALTROL) 0.5 MCG (0.5 mcg total) 0 capsule by mouth daily. rifAXIMin 550 mg Take 1 tablet 60 tablet 3 Active Tab (550 mg total) by 0 mouth 2 (two) times daily. pantoprazole Take 1 tablet (40 30 tablet 3 Active (PROTONIX) 40 MG mg total) by 0 tablet mouth daily. midodrine Take 1 tablet 90 tablet 0 02/25/20 Active (PROAMATINE) 2.5 MG (2.5 mg total) by 0 20 tablet mouth 3 (three) times daily for 30 days. magnesium oxide Take 1 tablet 30 tablet 0 Active (MAG-OX) 400 mg (400 mg total) by 0 (241.3 mg mouth daily. magnesium) tablet lactulose Take 30 mLs (20 g 2000 mL 3 Ac tive (CHRONULAC) 20 total) by mouth 3 0 gram/30 mL solution (three) times daily. folic acid Take 1 tablet (1 90 tablet 0 01/27/20 Ac tive (FOLVITE) 1 MG mg total) by 0 21 tablet mouth daily. ergocalciferol Take 1 capsule 4 capsule 0 02/01/20 Active (ERGOCALCIFEROL) (50,000 Units 0 21 1,250 mcg (50,000 total) by mouth unit) capsule once a week. ranitidine (ZANTAC) Take 150 mg by 0 02/14 Discontinued 150 MG mouth as needed 20 capsuleIndications: (every 8 hours- Cirrhosis of liver as antihistamine without ascites, by PCP). unspecified hepatic cirrhosis type (HCC), Screening for malignant neoplasm furosemide (LASIX) Take 40 mg by 0 0 Discontinued 20 MG tablet mouth 2 (two) 20 times daily . spironolactone Take 25 mg by 0 01/26/20 D iscontinued (ALDACTONE) 25 MG mouth daily. 20 tablet calcitrioL Take 0.5 mcg by 0 01/26/20 Dis continued (ROCALTROL) 0.5 MCG mouth daily. 20 capsule traMADoL (ULTRAM) Take 1 tablet (50 30 tablet 0 01/25 50 mg tablet mg total) by 0 20 mouth every 6 (six) hours as needed for up to 10 days. 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) Active Problems Problem Noted Date Acute liver failure 01/14/2020 Elevated serum creatinine 01/11/2020 Other ascites 01/11/2020 [...] Encounters Date Type Specialty Care Team Description 02/16/2020 Documentation Transplant Hepatology Brigitte Hamilton 02/16/2020 Documentation Transplant Hepatology Brigitte Hamilton 02/16/2020 Documentation Central Scheduling Brigitte aHmilton 02/16/2020 Orders Only Transplant Hepatology Cary Talley hosis of liver without ascites, unspecified hepatic cirrhosis type (HCC) (Primary Dx); R, RN Pre-transplant evaluation for liver transplant 02/15/2020 Follow-Up Transplant Hepatology Sia Riley Cirrh osis of liver without ascites, unspecified hepatic cirrhosis type (HCC) (Primary Dx); MD Alex Acute liver failure without hepatic coma ; Kristofer Cross MD Pre-transplant evaluation for liver transplant; Acute and subac sokaogon hepatic failure with coma (HCC) 02/15/2020 Telephone Transplant Hepatology Cary Talley meld update R, RN 02/15/2020 Telephone Transplant Hepatology Cary Talley othe r R, RN 02/15/2020 Orders Only Transplant Hepatology Areli Hein RN 02/14/2020 Documentation Transplant Hepatology Brigitte Hamilton 02/11/2020 Telephone Hepatology Dai Rios MA (confirm) 02/08/2020 Telephone Transplant Hepatology Cary Talley Foll ow-up R, RN 02/08/2020 Orders Only Transplant Hepatology Cary Talley Pre- transplant evaluation for liver transplant; R, RN 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, unspecified hepatic cirrhosis type (HCC) 02/07/2020 Orders Only Transplant Hepatology Cary Talley Pre- transplant evaluation for liver transplant; R, RN 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, unspecified hepatic cirrhosis type (HCC) 02/03/2020 Orders Only Hepatology Laron, Line Hepatic [place], ACIDIZER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) 02/03/2020 Documentation Hepatology Kristofer Cross MD 02/02/2020 Telephone Transplant Hepatology Cary Talley R RN 02/01/2020 UNOS Charge Visit Transplant Hepatology Rito Saini irrhosis of liver Ildefonso Spencer MD without ascites , unspecified hep atic cirrhosis type (HCC) 02/01/2020 Documentation Transplant Hepatology Brigitte Hamilton 02/01/2020 Abstract Transplant Hepatology Cary Talley RN 02/01/2020 Telephone Hepatology PRIOR ITZEL Craven (XIF AXJOCY) Kimmie 02/01/2020 Orders Only Transplant Hepatology Cary Talley Pre- transplant evaluation for liver transplant (Primary Dx); R, RN 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, unspecified hepatic cirrhosis type (HCC) 02/01/2020 Telephone Transplant Hepatology Cary Talley Labs Only R, RN 01/31/2020 Documentation Intensive Care Al-Leo Atwood 01/31/2020 Documentation Transplant Hepatology Cary Talley R, RN 01/31/2020 Telephone Transplant Hepatology Cary Talley othe r R, RN 01/31/2020 Telephone Transplant Hepatology Cary Talley endo crine clearance R, RN 01/21/2020 Abstract Transplant Hepatology Poonam Martínez R 01/20/2020 Documentation Transplant Hepatology LawPoonam R 01/20/2020 Abstract Transplant Hepatology Inge Salazar MA 01/19/2020 Surgery Nallely, R & L CATH / MD Brian CORONARY ANGIOS (+/- LV) 01/18/2020 Outside Orders Radiology Mitzy English, ACIDIZER 01/17/2020 Anesthesia Event Gastroenterology Tigist Colvin CRNA 01/17/2020 Surgery Gastroenterology Sylvie George, UPPER MD ENDOSCOPY,BIOPS Y 01/15/2020 Documentation Transplant Hepatology Cheryle Fischer Cirr hosis of liver without ascites, unspecified hepatic cirrhosis type (HCC); P, RN Pre-transplant evaluation for liver transplant 01/14/2020 Hospital Encounter General Internal Athreya, Cirrh osis of liver without ascites, unspecified hepatic cirrhosis type (HCC); - Medicine Khannan Other ascites; 01/26/2020 Radha, Portal hyperten lamberto (HCC); Secondary esophageal varices without ble eding (HCC); Juana, Acute renal florecita lure, unspecified acute renal failure type (HCC); MD Leena Acute liver failure without hepatic coma ; Kaylin Michelle MD Obesity (BMI 35.0-39.9 without comorbidi ty); Gregoria, Screening for m alignant neoplasm; Yashash D Immunity status testing; Ramone, Hepatorenal syn drome (HCC); Graciela Tonia, Hyponatremia; Pre-transplant evaluation for liver transplant; Encounter for p re-operative cardiovascular clearance; Adrenal mass, l eft (HCC); Subcutaneous em physema resulting from a procedure, initial encounter; Asbestos exposu re; Elevated serum creatinine; Acute liver florecita lure with hepatic coma (HCC); Pancytopenia (H CC); Pulmonary emphy sema, unspecified emphysema type (HCC) 01/14/2020 Travel 01/07/2020 Abstract Transplant Hepatology Cary Talley RN 01/07/2020 Orders Only Transplant Hepatology Cary Talley ening for malignant neoplasm (Primary Dx); R RN Encounter for p re-transplant evaluation for [...] p reprocedural cardiovascular examination 01/04/2020 Abstract Transplant Hepatology Rito Saini Jr., MD 01/03/2020 Office Visit Hepatology Sean, 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, unspecified hepatic cirrhosis type (HCC) (Primary Dx); Mike Armando Portal hypert ension ; Secondary esophageal varices without ble eding (HCC); Larry, Line Obesity (BMI 35.0-39.9 without comorbidity); [place], ACIDIZER Adrenal mass, l eft ; Screening for m alignant neoplasm; Elevated serum creatinine; Other ascites 12/31/2019 Telephone Hepatology Dai Healy MA 12/21/2019 Documentation Hepatology Laron, Line [place], ACIDIZER 12/17/2019 Abstract Hepatology Ivanna Healy MA 12/16/2019 Abstract Hepatology Janna Aparicio RN 12/16/2019 Abstract Hepatology Janna Aparicio RN 12/16/2019 Abstract Hepatology Janna Aparicio RN 12/15/2019 Audio - Hepatology Laron Line Portal hypert ension (Primary Dx); Telemedicine [place], ACIDIZER 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); Obesity (BMI 35 .0-39.9 without comorbidity); Adrenal mass, l eft ; Screening for m alignant neoplasm 12/14/2019 Telephone Hepatology Glynn, Dai De La Fuente MA after 02/17/2019 Family History Medical History Relation Name Comments [...] Vital Sign Reading Time Taken Blood Pressure 131/78 02/15/2020 10:30 AM CDT Pulse 98 02/15/2020 10:30 AM CDT Temperature 36.2 C (97.2 F) 02/15/2020 10:30 AM CDT Respiratory Rate 18 02/15/2020 10:30 AM CDT Oxygen Saturation 95% 02/15/2020 10:30 AM CDT Inhaled Oxygen Concentration 28% 01/23/2020 7:30 PM CDT Weight 90.9 kg (200 lb 6.4 oz) 02/15/2020 10:30 AM CDT Height 162.6 cm (5' 4") 02/15/2020 10:30 AM CDT Body Mass Index 34.4 02/15/2020 10:30 AM CDT Plan of Treatment Date Type Specialty Care Team Description 04/07/2020 Office Visit Hepatology 04/11/2020 Follow-Up Transplant Hepatology Whitney Cross MD [address] [address] [phone] 04/11/2020 Appointment Kristofer Cross MD [address] [address] [phone] Health Maintenance Due Date Last Done Comments BREAST CANCER SCREENING 1955 CERVICAL CANCER SCREENING PAP ONLY (Age 21-65) 1975 PNEUMOCOCCAL 65+ LOW/MEDIUM RISK (1 of 2 - PCV13) 2019 Medicare IPPE (WELCOME TO MEDICARE) 07/28/2019 INFLUENZA VACCINE (#1) 2020 COLON CANCER SCREENING COLONOSCOPY 01/16/2030 01/17/2020 Procedures Procedure Name Priority Date/Time Associated Comments Diagnosis CBC W/PLT COUNT & Routine 02/15/2020 12:29 Cirrhosis of liver Results for this AUTO DIFFERENTIAL PM CDT without ascites, proced ure are in unspecified hepatic the resu lts cirrhosis type section. (HCC) Acute liver failure without hepatic coma PROTHROMBIN TIME/INR Routine 02/15/2020 12:29 Cirrhosis of gerber er Results for this PM CDT without ascites, procedure a re in unspecified hepatic the resu lts cirrhosis type section. (HCC) Acute liver failure without hepatic coma COMPREHENSIVE Routine 02/15/2020 12:29 Cirrhosis of liver Resu lts for this METABOLIC PANEL PM CDT without ascites, procedur e are in unspecified hepatic the resu lts cirrhosis type section. (HCC) Acute liver failure without hepatic coma CBC W/PLT COUNT & Routine 02/15/2020 12:29 Cirrhosis of liver Results for this AUTO DIFFERENTIAL PM CDT without ascites, proced ure are in unspecified hepatic the resu lts cirrhosis type section. (HCC) Acute liver failure without hepatic coma BILIRUBIN, DIRECT Routine 02/15/2020 12:29 Cirrhosis of liver Results for this PM CDT without ascites, procedure a re in unspecified hepatic the resu lts cirrhosis type section. (HCC) Acute liver failure without hepatic coma MAGNESIUM Routine 02/15/2020 12:29 Magnesium Results for this PM CDT deficiency procedure are i n the results section. PLATELET ESTIMATION Routine 02/08/2020 10:23 Resu lts for this AM CDT procedure are i n the results section. BILIRUBIN, DIRECT STAT 02/08/2020 10:23 Pre-transplant Resu lts for this AM CDT evaluation for procedure are in liver transplant the results Cirrhosis of liver section. without ascites, unspecified hepatic cirrhosis type (HCC) CBC W/PLT COUNT & STAT 02/08/2020 10:23 Pre-transplant Resu lts for this AUTO DIFFERENTIAL AM CDT evaluation for procedur e are in liver transplant the results Cirrhosis of liver section. without ascites, unspecified hepatic cirrhosis type (HCC) COMPREHENSIVE STAT 02/08/2020 10:23 Pre-transplant Results for this METABOLIC PANEL AM CDT evaluation for procedure are in liver transplant the results Cirrhosis of liver section. without ascites, unspecified hepatic cirrhosis type (HCC) PROTHROMBIN TIME/INR STAT 02/08/2020 10:23 Pre-transplant R esults for this AM CDT evaluation for procedure are in liver transplant the results Cirrhosis of liver section. without ascites, unspecified hepatic cirrhosis type (HCC) BILIRUBIN, DIRECT STAT 02/01/2020 9:25 Pre-transplant Resu lts for this AM CDT evaluation for procedure are in liver transplant the results Cirrhosis of liver section. without ascites, unspecified hepatic cirrhosis type (HCC) CBC W/PLT COUNT & STAT 02/01/2020 9:25 Pre-transplant Resu lts for this AUTO DIFFERENTIAL AM CDT evaluation for procedur e are in liver transplant the results Cirrhosis of liver section. without ascites, unspecified hepatic cirrhosis type (HCC) COMPREHENSIVE STAT 02/01/2020 9:25 Pre-transplant Results for this METABOLIC PANEL AM CDT evaluation for procedure are in liver transplant the results Cirrhosis of liver section. without ascites, unspecified hepatic cirrhosis type (HCC) PROTHROMBIN TIME/INR STAT 02/01/2020 9:25 Pre-transplant R esults for this AM CDT evaluation for procedure are in liver transplant the results Cirrhosis of liver section. without ascites, unspecified hepatic cirrhosis type (HCC) RHYTHM STRIP - SCAN 01/27/2020 10:00 AM CDT CARDIAC CATH REPORT - 01/27/2020 10:00 SCAN AM CDT TRANSFUSE Routine 01/26/2020 10:41 LEUKO-REDUCED PM CDT PLATELETS METANEPHRINES Routine 01/26/2020 2:51 Results fo r this PM CDT procedure are i n the results section. CBC W/PLT COUNT & Routine 01/26/2020 3:50 Result s for this AUTO DIFFERENTIAL AM CDT procedure are in the results section. MAGNESIUM Routine 01/26/2020 3:50 Results for this AM CDT procedure are i n the results section. PHOSPHORUS Routine 01/26/2020 3:50 Results for this AM CDT procedure are i n the results section. COMPREHENSIVE Routine 01/26/2020 3:50 Results fo r this METABOLIC PANEL AM CDT procedure ar e in the results section. CALCIUM, IONIZED Routine 01/26/2020 3:50 Results for this AM CDT procedure are i n the results section. CBC W/PLT COUNT & Routine 01/26/2020 3:50 Result s for this AUTO DIFFERENTIAL AM CDT procedure are in the results section. PROTHROMBIN TIME/INR Routine 01/26/2020 3:50 Res ults for this AM CDT procedure are i n the results section. HEPATIC FUNCTION Routine 01/26/2020 3:50 Results for this PANEL AM CDT procedure are i n the results section. (CELLAVISION MANUAL Routine 01/25/2020 3:47 Resu lts for this DIFF) AM CDT procedure are i n the results section. CBC W/PLT COUNT & Routine 01/25/2020 3:47 Result s for this AUTO DIFFERENTIAL AM CDT procedure are in the results section. MAGNESIUM Routine 01/25/2020 3:47 Results for this AM CDT procedure are i n the results section. BASIC METABOLIC PANEL Routine 01/25/2020 3:47 Re sults for this (7) AM CDT procedure are i n the results section. CBC W/PLT COUNT & Routine 01/25/2020 3:47 Result s for this AUTO DIFFERENTIAL AM CDT procedure are in the results section. PROTHROMBIN TIME/INR Routine 01/25/2020 3:47 Res ults for this AM CDT procedure are i n the results section. HEPATIC FUNCTION Routine 01/25/2020 3:47 Results for this PANEL AM CDT procedure are i n the results section. TRANSFUSION SERVICE 01/24/2020 6:00 REPORT - SCAN PM CDT PULMONARY FUNCTION - 01/24/2020 1:10 Res ults for this SCAN PM CDT procedure are i n the results section. LUNG VOLUMES Routine 01/24/2020 10:41 Results for this AM CDT procedure are i n the results section. DLCO (SINGLE BREATH Routine 01/24/2020 10:41 Resu lts for this DIFFUSION) AM CDT procedure are i n the results section. SPIROMETRY Routine 01/24/2020 10:41 Results for this AM CDT procedure are i n the results section. 6 MINUTE WALK(FOR Routine 01/24/2020 10:20 Result s for this LUNG TRANSPLANT ONLY) AM CDT proced ure are in the results section. CBC W/PLT COUNT & Routine 01/24/2020 3:57 Result s for this AUTO DIFFERENTIAL AM CDT procedure are in the results section. MAGNESIUM Routine 01/24/2020 3:57 Results for this AM CDT procedure are i n the results section. BASIC METABOLIC PANEL Routine 01/24/2020 3:57 Re sults for this (7) AM CDT procedure are i n the results section. CBC W/PLT COUNT & Routine 01/24/2020 3:57 Result s for this AUTO DIFFERENTIAL AM CDT procedure are in the results section. PHOSPHORUS Routine 01/24/2020 3:57 Results for this AM CDT procedure are i n the results section. CALCIUM, IONIZED Routine 01/24/2020 3:57 Results for this AM CDT procedure are i n the results section. PROTHROMBIN TIME/INR Routine 01/24/2020 3:57 Res ults for this AM CDT procedure are i n the results section. HEPATIC FUNCTION Routine 01/24/2020 3:57 Results for this PANEL AM CDT procedure are i n the results section. PREPARE LEUKO-REDUCED Routine 01/23/2020 11:54 Re sults for this RBC PM CDT procedure are i n the results section. TRANSFUSION SERVICE 01/23/2020 6:00 REPORT - SCAN PM CDT (CELLAVISION MANUAL Routine 01/23/2020 4:32 Resu lts for this DIFF) AM CDT procedure are i n the results section. CBC W/PLT COUNT & Routine 01/23/2020 4:32 Result s for this AUTO DIFFERENTIAL AM CDT procedure are in the results section. MAGNESIUM Routine 01/23/2020 4:32 Results for this AM CDT procedure are i n the results section. BASIC METABOLIC PANEL Routine 01/23/2020 4:32 Re sults for this (7) AM CDT procedure are i n the results section. CBC W/PLT COUNT & Routine 01/23/2020 4:32 Result s for this AUTO DIFFERENTIAL AM CDT procedure are in the results section. PHOSPHORUS Routine 01/23/2020 4:32 Results for this AM CDT procedure are i n the results section. CALCIUM, IONIZED Routine 01/23/2020 4:32 Results for this AM CDT procedure are i n the results section. B-TYPE NATRIURETIC Routine 01/23/2020 4:32 Resul ts for this FACTOR (BNP) AM CDT procedure are i n the results section. PROTHROMBIN TIME/INR Routine 01/23/2020 4:32 Res ults for this AM CDT procedure are i n the results section. HEPATIC FUNCTION Routine 01/23/2020 4:32 Results for this PANEL AM CDT procedure are i n the results section. PREPARE LEUKO-REDUCED Routine 01/22/2020 11:54 Re sults for this PLATELETS PM CDT procedure are i n the results section. TRANSFUSION SERVICE 01/22/2020 6:01 REPORT - SCAN PM CDT TRANSFUSE Routine 01/22/2020 2:30 LEUKO-REDUCED RED PM CDT BLOOD CELLS CORTISOL Timed 01/22/2020 8:23 Results for this AM CDT procedure are i n the results section. (CELLAVISION MANUAL Routine 01/22/2020 4:35 Resu lts for this DIFF) AM CDT procedure are i n the results section. CBC W/PLT COUNT & Routine 01/22/2020 4:35 Result s for this AUTO DIFFERENTIAL AM CDT procedure are in the results section. MAGNESIUM Routine 01/22/2020 4:35 Results for this AM CDT procedure are i n the results section. BASIC METABOLIC PANEL Routine 01/22/2020 4:35 Re sults for this (7) AM CDT procedure are i n the results section. CBC W/PLT COUNT & Routine 01/22/2020 4:35 Result s for this AUTO DIFFERENTIAL AM CDT procedure are in the results section. HEPATIC FUNCTION Routine 01/22/2020 4:35 Results for this PANEL AM CDT procedure are i n the results section. CALCIUM, IONIZED Routine 01/22/2020 4:35 Results for this AM CDT procedure are i n the results section. ABORH, MANUAL Routine 01/22/2020 4:34 Results fo r this AM CDT procedure are i n the results section. DIRECT AHG Routine 01/22/2020 4:34 Results for this (RAMIREZ)/DIRECT JEWEL AM CDT procedur e are in the results section. PROTHROMBIN TIME/INR Routine 01/22/2020 4:34 Res ults for this AM CDT procedure are i n the results section. TRANSFUSION SERVICE 01/21/2020 6:00 REPORT - SCAN PM CDT BODY FLUID CELL COUNT Routine 01/21/2020 4:54 Re sults for this WITH DIFFERENTIAL PM CDT procedure are in the results section. BODY FLUID CULTURE + Routine 01/21/2020 4:54 Res ults for this GRAM STAIN PM CDT procedure are i n the results section. US PARACENTESIS Routine 01/21/2020 4:40 Results for this PM CDT procedure are i n the results section. CBC W/PLT COUNT & Routine 01/21/2020 9:31 Result s for this AUTO DIFFERENTIAL AM CDT procedure are in the results section. PERIPHERAL BLOOD Add-On 01/21/2020 9:31 Results for this SMEAR - HOLD ONLY AM CDT procedure are in the results section. RETICULOCYTE COUNT Add-On 01/21/2020 9:31 Resul ts for this AM CDT procedure are i n the results section. CORTISOL Timed 01/21/2020 9:31 Results for this AM CDT procedure are i n the results section. MAGNESIUM Routine 01/21/2020 9:31 Results for this AM CDT procedure are i n the results section. CBC W/PLT COUNT & Routine 01/21/2020 9:31 Result s for this AUTO DIFFERENTIAL AM CDT procedure are in the results section. PHOSPHORUS Routine 01/21/2020 9:31 Results for this AM CDT procedure are i n the results section. COMPREHENSIVE Routine 01/21/2020 9:31 Results fo r this METABOLIC PANEL AM CDT procedure ar e in the results section. PROTHROMBIN TIME/INR Routine 01/21/2020 9:31 Res ults for this AM CDT procedure are i n the results section. HEPATIC FUNCTION Routine 01/21/2020 9:31 Results for this PANEL AM CDT procedure are i n the results section. MISCELLANEOUS LAB Timed 01/21/2020 9:31 ORDER AM CDT XR CHEST 1 VIEW Routine 01/21/2020 9:10 Results for this PORTABLE/BEDSIDE AM CDT procedure a re in the results section. CATECHOLAMINES, Routine 01/20/2020 10:51 Results for this FRACTIONATED, 24HR PM CDT procedure are in URINE the results section. METANEPHRINES, 24 Routine 01/20/2020 10:51 Result s for this HOUR URINE PM CDT procedure are i n the results section. TYPE AND SCREEN, Routine 01/20/2020 8:39 Results for this AUTOMATED PM CDT procedure are i n the results section. XR CHEST 1 VIEW CHRISTINE 01/20/2020 8:28 Results for this PORTABLE/BEDSIDE PM CDT procedure a re in the results section. TRANSFUSION SERVICE 01/20/2020 6:01 REPORT - SCAN PM CDT MR ABDOMEN WITHOUT IV Routine 01/20/2020 5:54 Re sults for this CONTRAST PM CDT procedure are i n the results section. (CELLAVISION MANUAL Routine 01/20/2020 4:10 Resu lts for this DIFF) AM CDT procedure are i n the results section. CBC W/PLT COUNT & Routine 01/20/2020 4:10 Result s for this AUTO DIFFERENTIAL AM CDT procedure are in the results section. MAGNESIUM Routine 01/20/2020 4:10 Results for this AM CDT procedure are i n the results section. CBC W/PLT COUNT & Routine 01/20/2020 4:10 Result s for this AUTO DIFFERENTIAL AM CDT procedure are in the results section. PHOSPHORUS Routine 01/20/2020 4:10 Results for this AM CDT procedure are i n the results section. COMPREHENSIVE Routine 01/20/2020 4:10 Results fo r this METABOLIC PANEL AM CDT procedure ar e in the results section. CALCIUM, IONIZED Routine 01/20/2020 4:10 Results for this AM CDT procedure are i n the results section. PROTHROMBIN TIME/INR Routine 01/20/2020 4:10 Res ults for this AM CDT procedure are i n the results section. HEPATIC FUNCTION Routine 01/20/2020 4:10 Results for this PANEL AM CDT procedure are i n the results section. PREPARE LEUKO-REDUCED Routine 01/19/2020 11:54 Re sults for this RBC PM CDT procedure are i n the results section. SODIUM, RANDOM URINE Routine 01/19/2020 11:19 Res ults for this PM CDT procedure are i n the results section. URINALYSIS W/ Routine 01/19/2020 11:19 Results fo r this MICROSCOPIC PM CDT procedure are i n the results section. URINALYSIS W/ REFLEX Routine 01/19/2020 11:19 Res ults for this URINE CULTURE PM CDT procedure are in the results section. BLOOD CULTURE Routine 01/19/2020 9:45 Results fo r this PM CDT procedure are i n the results section. BLOOD CULTURE Routine 01/19/2020 9:44 Results fo r this PM CDT procedure are i n the results section. [id number] AP Routine 01/19/2020 9:43 PHENOTYP PM CDT TRANSFUSION SERVICE 01/19/2020 6:01 REPORT - SCAN PM CDT BLOOD GAS, ARTERIAL Routine 01/19/2020 3:44 Resu lts for this PM CDT procedure are i n the results section. VARICELLA ZOSTER Routine 01/19/2020 3:04 Results for this ANTIBODY, IGG PM CDT procedure are in the results section. RUBEOLA ANTIBODY IGG Routine 01/19/2020 3:04 Res ults for this PM CDT procedure are i n the results section. RUBELLA ANTIBODY, IGG Routine 01/19/2020 3:04 Re sults for this PM CDT procedure are i n the results section. MUMPS ANTIBODY, IGG Routine 01/19/2020 3:04 Resu lts for this PM CDT procedure are i n the results section. CRYPTOCOCCAL ANTIGEN Routine 01/19/2020 3:04 Res ults for this PM CDT procedure are i n the results section. R & L CATH / CORONARY 01/19/2020 1:47 Liver transplan t ANGIOS (+/- LV) PM CDT candidate PROTHROMBIN TIME/INR Routine 01/19/2020 11:00 Res ults for this AM CDT procedure are i n the results section. US BREAST BILATERAL STAT 01/19/2020 9:10 Resu lts for this AM CDT procedure are i n the results section. CBC W/PLT COUNT & Routine 01/19/2020 4:11 Result s for this AUTO DIFFERENTIAL AM CDT procedure are in the results section. MAGNESIUM Routine 01/19/2020 4:11 Results for this AM CDT procedure are i n the results section. METANEPHRINES Routine 01/19/2020 4:11 Results fo r this AM CDT procedure are i n the results section. RENIN, PLASMA Routine 01/19/2020 4:11 Results fo r this AM CDT procedure are i n the results section. ALDOSTERONE Routine 01/19/2020 4:11 Results for this AM CDT procedure are i n the results section. B-TYPE NATRIURETIC Routine 01/19/2020 4:11 Resul ts for this FACTOR (BNP) AM CDT procedure are i n the results section. CBC W/PLT COUNT & Routine 01/19/2020 4:11 Result s for this AUTO DIFFERENTIAL AM CDT procedure are in the results section. PHOSPHORUS Routine 01/19/2020 4:11 Results for this AM CDT procedure are i n the results section. COMPREHENSIVE Routine 01/19/2020 4:11 Results fo r this METABOLIC PANEL AM CDT procedure ar e in the results section. CALCIUM, IONIZED Routine 01/19/2020 4:11 Results for this AM CDT procedure are i n the results section. HEPATIC FUNCTION Routine 01/19/2020 4:11 Results for this PANEL AM CDT procedure are i n the results section. CT ABDOMEN WITHOUT IV Routine 01/19/2020 12:40 Re sults for this CONTRAST AM CDT procedure are i n the results section. US RENAL COMPLETE Routine 01/19/2020 12:20 Result s for this AM CDT procedure are i n the results section. PREPARE LEUKO-REDUCED Routine 01/18/2020 11:54 Re sults for this PLATELETS PM CDT procedure are i n the results section. EOSINOPHIL SMEAR, Routine 01/18/2020 8:49 Result s for this URINE PM CDT procedure are i n the results section. CREATININE, RANDOM Routine 01/18/2020 8:49 Resul ts for this URINE PM CDT procedure are i n the results section. PROTEIN, RANDOM URINE Routine 01/18/2020 8:49 Re sults for this PM CDT procedure are i n the results section. SODIUM, RANDOM URINE Routine 01/18/2020 8:49 Res ults for this PM CDT procedure are i n the results section. URINALYSIS W/ Routine 01/18/2020 8:49 Results fo r this MICROSCOPIC PM CDT procedure are i n the results section. TRANSFUSION SERVICE 01/18/2020 6:31 REPORT - SCAN PM CDT TRANSFUSE Routine 01/18/2020 1:21 LEUKO-REDUCED RED PM CDT BLOOD CELLS NM MYOCARDIAL Routine 01/18/2020 9:20 Results fo r this PERFUSION PET/CT AM CDT procedure a re in (REST & STRESS) the results section. TREADMILL Routine 01/18/2020 8:57 Results for this TOLERANCE(NON-NUCLEAR AM CDT proced ure are in TREADMILL) the results section. ECG 12-LEAD Routine 01/18/2020 8:46 AM CDT Procedure Note - Interface, External Ris In - 01/18/2020 9:17 AM CDT Ventricular Rate 62 BPM Atrial Rate 62 BPM P-R Interval 138 ms QRS Duration 86 ms Q-T Interval 452 ms QTC Calculation(Bazett) 458 ms P [place] 59 degrees R [place] 32 degrees T [place] 56 degrees Normal sinus rhythm Normal ECG ECG 12-LEAD STAT 01/18/2020 8:46 Results for this AM CDT procedure are i n the results section. (CELLAVISION MANUAL Routine 01/18/2020 6:10 Resu lts for this DIFF) AM CDT procedure are i n the results section. CBC W/PLT COUNT & Routine 01/18/2020 6:10 Result s for this AUTO DIFFERENTIAL AM CDT procedure are in the results section. HEPATIC FUNCTION Add-On 01/18/2020 6:10 Results for this PANEL AM CDT procedure are i n the results section. T SPOT TB Routine 01/18/2020 6:10 Results for this AM CDT procedure are i n the results section. MAGNESIUM Routine 01/18/2020 6:10 Results for this AM CDT procedure are i n the results section. BASIC METABOLIC Routine 01/18/2020 6:10 Results for this PANEL (7) AM CDT procedure are i n the results section. CBC W/PLT COUNT & Routine 01/18/2020 6:10 Result s for this AUTO DIFFERENTIAL AM CDT procedure are in the results section. ECG 12-LEAD Routine 01/17/2020 11:05 Results for this AM CDT procedure are i n the results section. REPORT OF PROCEDURE 01/17/2020 9:11 - ENDOSCOPY URL AM CDT REPORT OF PROCEDURE 01/17/2020 8:39 - ENDOSCOPY URL AM CDT TISSUE EXAM AP Routine 01/17/2020 8:15 Results for this AM CDT procedure are i n the results section. TRANSFUSE Routine 01/17/2020 8:04 LEUKO-REDUCED AM CDT PLATELETS COLONOSCOPY 01/17/2020 8:00 Anemia, unspecified AM CDT type Special Needs REQ: TF UPPER ENDOSCOPY,BIOPSY 01/17/2020 8:00 AM CDT Anemia, unspecified type Special Needs REQ: TF (CELLAVISION MANUAL Routine 01/17/2020 3:56 Resu lts for this DIFF) AM CDT procedure are i n the results section. CBC W/PLT COUNT & AUTO Routine 01/17/2020 3:56 R esults for this DIFFERENTIAL AM CDT procedure are i n the results section. MAGNESIUM Routine 01/17/2020 3:56 Results for this AM CDT procedure are i n the results section. BASIC METABOLIC PANEL Routine 01/17/2020 3:56 Re sults for this (7) AM CDT procedure are i n the results section. CBC W/PLT COUNT & AUTO Routine 01/17/2020 3:56 R esults for this DIFFERENTIAL AM CDT procedure are i n the results section. PROTHROMBIN TIME/INR Routine 01/17/2020 3:56 Res ults for this AM CDT procedure are i n the results section. TRANSFUSION SERVICE 01/16/2020 6:00 REPORT - SCAN PM CDT BLOOD CULTURE Routine 01/16/2020 12:25 Results fo r this PM CDT procedure are i n the results section. LACTATE DEHYDROGENASE Routine 01/16/2020 12:24 Re sults for this (LDH) PM CDT procedure are i n the results section. RETICULOCYTE COUNT Routine 01/16/2020 12:23 Resul ts for this PM CDT procedure are i n the results section. HAPTOGLOBIN Routine 01/16/2020 11:25 Results for this AM CDT procedure are i n the results section. VITAMIN B12 AND FOLATE Routine 01/16/2020 11:25 R esults for this AM CDT procedure are i n the results section. HIV-1 ANTIGEN WITH STAT 01/16/2020 11:25 Resul ts for this HIV-1/2 ANTIBODY AM CDT procedure a re in the results section. BLOOD CULTURE Routine 01/16/2020 11:25 Results fo r this AM CDT procedure are i n the results section. US ABDOMINAL WITH Routine 01/16/2020 6:30 Result s for this DOPPLER AM CDT procedure are i n the results section. CBC W/PLT COUNT & AUTO Routine 01/16/2020 3:38 R esults for this DIFFERENTIAL AM CDT procedure are i n the results section. MAGNESIUM Routine 01/16/2020 3:38 Results for this AM CDT procedure are i n the results section. BASIC METABOLIC PANEL Routine 01/16/2020 3:38 Re sults for this (7) AM CDT procedure are i n the results section. CBC W/PLT COUNT & AUTO Routine 01/16/2020 3:38 R esults for this DIFFERENTIAL AM CDT procedure are i n the results section. HEPATIC FUNCTION PANEL Routine 01/16/2020 3:38 R esults for this AM CDT procedure are i n the results section. PROTHROMBIN TIME/INR Routine 01/16/2020 3:38 Res ults for this AM CDT procedure are i n the results section. DRUG SCREEN, URINE, Routine 01/15/2020 9:52 TRANSPLANT PM CDT BLOOD TYPING, AUTOMATED Routine 01/15/2020 6:16 Results for this PM CDT procedure are i n the results section. CT CHEST WITHOUT IV STAT 01/15/2020 5:54 Resu lts for this CONTRAST PM CDT procedure are i n the results section. XR CHEST 2 VIEWS Routine 01/15/2020 4:57 Results for this PM CDT procedure are i n the results section. XR MANDIBLE 4 VIEWS MIN Routine 01/15/2020 4:39 Results for this PM CDT procedure are i n the results section. TYPE AND SCREEN, STAT 01/15/2020 4:17 Results for this AUTOMATED PM CDT procedure are i n the results section. EBV ANTIBODY, IGM Routine 01/15/2020 4:17 Result s for this PM CDT procedure are i n the results section. EBV ANTIBODY, IGG Routine 01/15/2020 4:17 Result s for this PM CDT procedure are i n the results section. CYTOMEGALOVIRUS Routine 01/15/2020 4:17 Results for this ANTIBODY, IGM PM CDT procedure are in the results section. CYTOMEGALOVIRUS Routine 01/15/2020 4:17 Results for this ANTIBODY, IGG PM CDT procedure are in the results section. RPR Routine 01/15/2020 4:17 Results for this PM CDT procedure are i n the results section. HEPATITIS C ANTIBODY Routine 01/15/2020 4:17 Res ults for this PM CDT procedure are i n the results section. HEPATITIS B CORE Routine 01/15/2020 4:17 Results for this ANTIBODY, IGM PM CDT procedure are in the results section. HEPATITIS B CORE AP Routine 01/15/2020 4:17 Results for this ANTIBODY, TOTAL PM CDT procedure ar e in the results section. HEPATITIS B SURFACE Routine 01/15/2020 4:17 Resu lts for this ANTIBODY PM CDT procedure are i n the results section. HEPATITIS B SURFACE Routine 01/15/2020 4:17 Resu lts for this ANTIGEN PM CDT procedure are i n the results section. HEPATITIS A ANTIBODY, Routine 01/15/2020 4:17 Re sults for this IGM PM CDT procedure are i n the results section. APTT Routine 01/15/2020 4:17 Results for this PM CDT procedure are i n the results section. PROTHROMBIN TIME/INR Routine 01/15/2020 4:17 Res ults for this PM CDT procedure are i n the results section. FIBRINOGEN Routine 01/15/2020 4:17 Results for this PM CDT procedure are i n the results section. ETHANOL Routine 01/15/2020 4:17 Results for this PM CDT procedure are i n the results section. T4 Routine 01/15/2020 4:17 Results for this PM CDT procedure are i n the results section. T3 Routine 01/15/2020 4:17 Results for this PM CDT procedure are i n the results section. TSH Routine 01/15/2020 4:17 Results for this PM CDT procedure are i n the results section. HEMOGLOBIN A1C AP Routine 01/15/2020 4:17 Results f or this PM CDT procedure are i n the results section. CARBOHYDRATE ANTIGEN Routine 01/15/2020 4:17 Res ults for this 19-9 (CA 19-9) PM CDT procedure are in the results section. CARCINOEMBRYONIC Routine 01/15/2020 4:17 Results for this ANTIGEN (CEA) PM CDT procedure are in the results section. ALPHA FETOPROTEIN Routine 01/15/2020 4:17 Result s for this (AFP), TUMOR MARKER PM CDT procedur e are in the results section. CERULOPLASMIN Routine 01/15/2020 4:17 Results fo r this PM CDT procedure are i n the results section. [id number]\\, Routine 01/15/2020 4:17 Re sults for this SERUM PM CDT procedure are i n the results section. TRANSFERRIN Routine 01/15/2020 4:17 Results for this PM CDT procedure are i n the results section. FERRITIN Routine 01/15/2020 4:17 Results for this PM CDT procedure are i n the results section. IRON, TIBC, % SAT. Routine 01/15/2020 4:17 Resul ts for this (WITHOUT FERRITIN) PM CDT procedure are in the results section. MITOCHONDRIA M2 Routine 01/15/2020 4:17 Results for this ANTIBODY (IGG) PM CDT procedure are in the results section. ACTIN (SMOOTH MUSCLE) Routine 01/15/2020 4:17 Re sults for this ANTIBODY, IGG PM CDT procedure are in the results section. ANTI-NUCLEAR ANTIBODY Routine 01/15/2020 4:17 Re sults for this (REILLY) PM CDT procedure are i n the results section. ZINC Routine 01/15/2020 4:17 Results for this PM CDT procedure are i n the results section. CALCIUM, IONIZED Routine 01/15/2020 4:17 Results for this PM CDT procedure are i n the results section. BILIRUBIN, DIRECT Routine 01/15/2020 4:17 Result s for this PM CDT procedure are i n the results section. COMPREHENSIVE METABOLIC Routine 01/15/2020 4:17 Results for this PANEL PM CDT procedure are i n the results section. VITAMIN D, 25-HYDROXY Routine 01/15/2020 4:17 Re sults for this PM CDT procedure are i n the results section. 2D ECHO W/ DOPPLER Routine 01/15/2020 2:45 Resul ts for this (CW/PW/COLOR) PM CDT procedure are in the results section. CAROTID DOPPLER STAT 01/15/2020 2:41 Results for this BILATERAL PM CDT procedure are i n the results section. CREATININE, RANDOM Routine 01/15/2020 12:46 Resul ts for this URINE PM CDT procedure are i n the results section. SODIUM, RANDOM URINE Routine 01/15/2020 12:46 Res ults for this PM CDT procedure are i n the results section. HEPATITIS PANEL, ACUTE Routine 01/15/2020 8:32 R esults for this AM CDT procedure are i n the results section. AMMONIA Routine 01/15/2020 8:32 Results for this AM CDT procedure are i n the results section. (CELLAVISION MANUAL Routine 01/15/2020 3:56 Resu lts for this DIFF) AM CDT procedure are i n the results section. CBC W/PLT COUNT & AUTO Routine 01/15/2020 3:56 R esults for this DIFFERENTIAL AM CDT procedure are i n the results section. LIPID PANEL Add-On 01/15/2020 3:56 Results for this AM CDT procedure are i n the results section. PHOSPHORUS Add-On 01/15/2020 3:56 Results for this AM CDT procedure are i n the results section. GAMMA GLUTAMYL Add-On 01/15/2020 3:56 Results f or this TRANSFERASE (GGT) AM CDT procedure are in the results section. URIC ACID Add-On 01/15/2020 3:56 Results for this AM CDT procedure are i n the results section. MAGNESIUM Add-On 01/15/2020 3:56 Results for this AM CDT procedure are i n the results section. HEPATIC FUNCTION PANEL Routine 01/15/2020 3:56 R esults for this AM CDT procedure are i n the results section. CBC W/PLT COUNT & AUTO Routine 01/15/2020 3:56 R esults for this DIFFERENTIAL AM CDT procedure are i n the results section. PROTHROMBIN TIME/INR Routine 01/15/2020 3:56 Res ults for this AM CDT procedure are i n the results section. BASIC METABOLIC PANEL Routine 01/15/2020 3:56 Re sults for this (7) AM CDT procedure are i n the results section. CBC W/PLT COUNT & AUTO Routine 01/14/2020 9:59 R esults for this DIFFERENTIAL PM CDT procedure are i n the results section. HEPATIC FUNCTION PANEL Routine 01/14/2020 9:59 R esults for this PM CDT procedure are i n the results section. CBC W/PLT COUNT & AUTO Routine 01/14/2020 9:59 R esults for this DIFFERENTIAL PM CDT procedure are i n the results section. PROTHROMBIN TIME/INR Routine 01/14/2020 9:59 Res ults for this PM CDT procedure are i n the results section. BASIC METABOLIC PANEL Routine 01/14/2020 9:59 Re sults for this (7) PM CDT procedure are i n the results section. SARS-COV2/RT-PCR ([facility] STAT 01/14/2020 7:28 R esults for this & REF LABS) PM CDT procedure are i n the results section. CBC W/PLT COUNT & AUTO Routine 01/03/2020 2:34 Cirrhosis of l iver Results for this DIFFERENTIAL PM CDT without ascites, procedure a re in unspecified the results hepatic cirrhosis section. type (HCC) ALPHA FETOPROTEIN Routine 01/03/2020 2:34 Cirrhosis of liver Results for this (AFP), TUMOR MARKER PM CDT without ascites, proc edure are in unspecified the results hepatic cirrhosis section. type (HCC) PROTHROMBIN TIME/INR Routine 01/03/2020 2:34 Cirrhosis of gerber er Results for this PM CDT without ascites, procedure a re in unspecified the results hepatic cirrhosis section. type (HCC) CBC W/PLT COUNT & AUTO Routine 01/03/2020 2:34 Cirrhosis of l iver Results for this DIFFERENTIAL PM CDT without ascites, procedure a re in unspecified the results hepatic cirrhosis section. type (HCC) HEPATIC FUNCTION PANEL Routine 01/03/2020 2:34 Cirrhosis of l iver Results for this PM CDT without ascites, procedure a re in unspecified the results hepatic cirrhosis section. type (HCC) BASIC METABOLIC PANEL Routine 01/03/2020 2:34 Cirrhosis of li sloan Results for this (7) PM CDT without ascites, procedure a re in unspecified the results hepatic cirrhosis section. type (HCC) after 02/17/2019 Results CBC with platelet count + automated diff (02/15/2020 12:29 PM CDT)Only the most recent of15 resultswithin the time period is included. WBC 2.5 (L) 3.5 - 10.5 K/L [facility] RBC 2.31 (L) 3.93 - 5.22 M/L [facility] Hemoglobin 8.8 (L) 11.2 - 15.7 GM/DL [facility] Hematocrit 28.0 (L) 34.1 - 44.9 % [facility] MCV 121.2 (H) 79.4 - 94.[address] [facility] MCH 38.1 (H) 25.6 - 32.[address] [facility] MCHC 31.4 (L) 32.2 - 35.5 GM/DL [facility] RDW 20.9 (H) 11.7 - 14.4 % [facility] Platelets 48 (L) 150 - 450 K/CU MM [facility] MPV 10.0 9.4 - 12.[address] [facility] nRBC 0 0 - 0 /100 WBC [facility] % Neutros 62 % [facility] % Lymphs 24 % [facility] % Monos 10 % [facility] % Eos 4 % [facility] % Baso 1 % [facility] # Neutros 1.56 1.56 - 6.13 K/L [facility] # Lymphs 0.60 (L) 1.18 - 3.74 K/L [facility] # Monos 0.24 0.24 - 0.36 K/L [facility] # Eos 0.10 0.04 - 0.36 K/L [facility] # Baso 0.02 0.01 - 0.08 K/L [facility] Immature 0 0 - 1 % [facility] Granulocytes-Relative MEDICAL CE [facility]TER Specimen Blood Performing Organization Address [facility] Phone Number [address] [address] CENTER Prothrombin time/INR (02/15/2020 12:29 PM CDT)Only the most recent of17 results within the time period is included. Protime 18.1 (H) 11.9 - 14.2 seconds [facility] INR 1.5 <=5.[address] [facility] [place] [place] Specimen Blood Narrative Performed At Effective 12/23/2018: PT Reference Range [facility] Change New: 11.9-14.2Previous: 11.7-14.7 RECOMMENDED COUMADIN/WARFARIN INR THERAPY RANGES STANDARD DOSE: 2.0-3.0Includes: PROPHYLAXIS for venous thrombosis, systemic embolization; TREATMENT for venous thrombosis and/or pulmonary embolus. HIGH RISK: Target INR is 2.5-3.5 for patients wiht mechanical heart valves. Performing Organization Address [facility] Hospitalcome Phone Number [address] [address] CENTER Magnesium (02/15/2020 12:29 PM CDT)Only the most recent of13 resultswithin the time period is included. Magnesium 1.8 1.6 - 2.6 mg/dL [facility] [place] [place] Specimen Blood Narrative Performed At Research Animal Attendant ID - LM [facility] Performing Organization Address City/[facility]/Zipcode Phone Number [address] [address] CENTER Bilirubin, direct (02/15/2020 12:29 PM CDT)Only the most recent of4 results within the time period is included. Bilirubin, Direct 2.5 (H) 0.1 - 0.5 mg/dL [facility] Specimen Blood Narrative Performed At Research Animal Attendant ID - LM [facility] CENTER Performing Organization Address City/State/Zipcode Phone Number [facility] [address] [place] [address] CENTER Comprehensive metabolic panel (02/15/2020 12:29 PM CDT)Only the most recent of8 resultswithin the time period is included. Protein, Total 6.5 6.0 - 8.3 gm/dL [facility] Albumin 3.2 (L) 3.5 - 5.0 g/dL [facility] Alkaline Phosphatase 107 40 - 150 U/L [facility] Total Bilirubin 7.4 (H) 0.2 - 1.2 mg/dL [facility] Sodium 140 136 - 145 meq/L [facility] Potassium 4.1 3.5 - 5.1 meq/L [facility] Chloride 107 98 - 107 meq/L [facility] CO2 26 22 - 29 meq/L [facility] BUN 23 (H) 7 - 21 mg/dL [facility] Creatinine 1.33 (H) 0.57 - 1.25 mg/dL [facility] Glucose 87 70 - 105 mg/dL [facility] Calcium 9.5 8.4 - 10.2 mg/dL [facility] AST 39 (H) 5 - 34 U/L [facility] ALT 16 6 - 55 U/L [facility] EGFR 40Comment: ESTIMATED GFR mL/min/1.73 sq m [facility] IS NOT ACCURATE [facility] CREATININE CLEARANCE IN PREDICTING GLOMERULAR FILTRATION RATE. ESTIMATED GFR IS NOT APPLICABLE FOR DIALYSIS PATIENTS. Specimen Blood Narrative Performed At Research Animal Attendant ID - LM [facility] Specimen moderately icteric Performing Organization Address City/State/Zipcode Phone Number [facility] [address] [place] [address] CENTER PLATELET ESTIMATION (02/08/2020 10:23 AM CDT) Platelet Estimate DECREASED (A) ADEQUATE [facility] Specimen Narrative Performed At FASTING:YES [facility] FASTING: YES Resulting Agency Comment Performing Organization Information: Site ID: [id number] Name: [facility] Address: [address] [place] [id number] Director: Jj Carrasco Performing Organization Address City/State/Zipcode Phone Number [facility] [address] [place] [address] [facility] CBC with platelet count + automated diff (02/08/2020 10:23 AM CDT)Only the most recent of2 resultswithin the time period is included. WBC 2.0 (L) 3.8 - 10.8 Thousand/uL [facility] RBC 2.23 (L) 3.80 - 5.10 Million/uL [facility] Hemoglobin 8.2 (L) 11.7 - 15.5 g/dL [facility] Hematocrit 23.0 (L) 35.0 - 45.0 % [facility] MCV 103.1 (H) 80.0 - 100.0 fL [facility] MCH 36.8 (H) 27.0 - 33.0 pg [facility] MCHC 35.7 32.0 - 36.0 g/dL [facility] RDW 19.5 (H) 11.0 - 15.0 % [facility] Platelets 44 (L) 140 - 400 Thousand/uL [facility] MPV 10.4 7.5 - 12.5 fL [facility] # Neutros 1,128 (L) 1,500 - 7,800 cells/uL [facility] # Lymphs 534 (L) 850 - 3,900 cells/uL [facility] # Monos 238 200 - 950 cells/uL [facility] # Eos 90 15 - 500 cells/uL [facility] # Baso 10 0 - 200 cells/uL [facility] % Neutros 56.4 % [facility] % Lymphs 26.7 % [facility] % Monos 11.9 % [facility] % Eos 4.5 % [facility] % Baso 0.5 % [facility] Comment(s) [facility] Comment: Review of the peripheral smear reveals decreased numbers of platelets. Specimen Blood Narrative Performed At FASTING:YES [facility] FASTING: YES Resulting Agency Comment Performing Organization Information: Site ID: [id number] Name: [facility] Address: [address] [place] [phone] Director: Jj Carrasco Performing Organization Address City/State/Zipcode Phone Number [facility] [address] [place] [address] [facility] RHYTHM STRIP - SCAN (01/27/2020 10:00 AM CDT) Narrative Performed At This result has an attachment that is no t available. CARDIAC CATH REPORT - SCAN (01/27/2020 10:00 AM CDT) Narrative Performed At This result has an attachment that is no t available. Transfuse Leuko-Red PLT (01/26/2020 10:41 PM CDT)Only the most recent of4 resultswithin the time period is included.Metanephrines (01/26/2020 2:51 PM CDT)Only the most recent of2 resultswithin the time period is included. Metanephrine 46 < OR = 57 pg/mL [facility] Comment: INCORPORATED This test was developed and its analytical perfo rmance characteristics have been determined by [employer] [facility]. It has not been cleared or approved by FDA. This assay has been validated pursuant to the CLIA regulations and is used for clinical purposes. Normetanephrine 213 (H) < OR = 148 pg/mL [facility] Comment: INCORPORATED This test was developed and its analytical perfo rmance characteristics have been determined by [facility] [facility]. It has not been cleared or approved by FDA. This assay has been validated pursuant to the CLIA regulations and is used for clinical purposes. Total Metanephrine 259 (H) < OR = 205 pg/mL [facility] Comment: INCORPORATED Elevations > 4-fold upper reference range: stron gly suggestive of a pheochromocytoma(1). Elevations >1 - 4-fold uppe r reference range: significant but not diagnostic, may be due to me dications or stress. Suggest running 24 hr urine fractionated metanephrines a nd serum Chromogranin A for confirmation. Reference: (1) Chica Lorenz et al, Plasma Chromogr anin A or Urine Fractionated Metanephrines Follow-Up Testing Improves the Rocio gnostic Accuracy of Plasma Fractionated Metanephrines for Pheochromocytoma. The Journal of Clinical Endocrinology and Metabolism 93 (1),91-95, 2008. For additional information, please refer to http://education.tolingo/faq/MetFra ctFree (This link is being provided for informational/e ducational purposes only.) This test was developed and its analytical perfo rmance characteristics have been determined by [employer] [facility]. It has not been cleared or approved by FDA. This assay has been validated pursuant to the CLIA regulations and is used for clinical purposes. Specimen Blood Narrative Performed At Performing Lab [employer] [facility] [facility] EZ [employer] [facility] [address] [address] [place] [address] Mark Encarnacion MD, PhD, AMINA Performing Organization Address City/[facility]/Zipcode Phone Number [employer] [place], [place] [address] [employer]ATED [address] [facility] Calcium, Ionized (01/26/2020 3:50 AM CDT)Only the most recent of7 resultswithin the time period is included. Calcium, Ion 1.11 (L) 1.12 - 1.27 mmol/L [facility] pH, Blood 7.[address] [facility] [place] Specimen Blood Performing Organization Address City/[facility]/Zipcode Phone Number [facility] [address] [place] [address] CENTER Phosphorus (01/26/2020 3:50 AM CDT)Only the most recent of7 resultswithin the time period is included. Phosphorus 3.2 2.3 - 4.7 mg/dL [facility] [place] Specimen Blood Narrative Performed At Research Animal Attendant ID - BS [facility] Performing Organization Address City/[facility]/Zipcode Phone Number [facility] [address] [place] [address] CENTER Hepatic function panel (01/26/2020 3:50 AM CDT)Only the most recent of13 resultswithin the time period is included. Protein, Total 5.7 (L) 6.0 - 8.3 gm/dL [facility] Albumin 3.4 (L) 3.5 - 5.0 g/dL [facility] Total Bilirubin 6.9 (H) 0.2 - 1.2 mg/dL [facility] Bilirubin, Direct 2.2 (H) 0.1 - 0.5 mg/dL [facility] Alkaline Phosphatase 58 40 - 150 U/L [facility] AST 36 (H) 5 - 34 U/L [facility] [place] ALT 13 6 - 55 U/L [facility] [place] Specimen Blood Narrative Performed At Research Animal Attendant ID - BS [facility] Specimen moderately icteric Performing Organization Address City/[facility]/Zipcode Phone Number [facility] [address] [place] [address] [place] Manual Differential (01/25/2020 3:47 AM CDT)Only the most recent of7 results within the time period is included. % Neutros 66 % [facility] % Lymphs 24 % [facility] % Monos 7 % [facility] % Eos 2 % [facility] % Metamyelo 1 (H) 0 - 0 % [facility] # Neutros 0.92 (L) 1.56 - 6.13 K/ul [facility] # Lymphs 0.34 (L) 1.18 - 3.74 K/ul [facility] # Monos 0.10 (L) 0.24 - 0.36 K/uL [facility] # Eos 0.03 (L) 0.04 - 0.36 K/uL [facility] # Metamyelo 0.01 (H) 0.00 - 0.00 K/uL [facility] Total Counted [address] [facility] Smudge Cells Present [facility] Giant Platelet Present [facility] Anisocytosis 2+ moderate [facility] Macrocytes 2+ moderate [facility] Poikilocytes 2+ moderate [facility] Black Cells 2+ moderate [facility] Artifact Present [facility] Platelet Conc Decreased [facility] Specimen Blood Narrative Performed At Research Animal Attendant ID - [id number] [facility] Research Animal Attendant ID - Maria Del Carmen Silvio User comments: Slide comments: Performing Organization Address City/State/Zipcode Phone Number [facility] [address] [place] [address] CENTER Basic Metabolic Panel (01/25/2020 3:47 AM CDT)Only the most recent of10 results within the time period is included. Sodium 140 136 - 145 meq/L [facility] Potassium 3.4 (L) 3.5 - 5.1 meq/L [facility] Chloride 105 98 - 107 meq/L [facility] CO2 25 22 - 29 meq/L [facility] BUN 31 (H) 7 - 21 mg/dL [facility] Creatinine 2.35 (H) 0.57 - 1.25 mg/dL [facility] Glucose 108 (H) 70 - 105 mg/dL [facility] Calcium 8.7 8.4 - 10.2 mg/dL [facility] EGFR 21Comment: ESTIMATED GFR IS mL/min/1.73 sq m [facility] NOT ACCURATE CREATININE ME DICAL CENTER CLEARANCE IN PREDICTING GLOMERULAR FILTRATION RATE. ESTIMATED GFR IS NOT APPLICABLE FOR DIALYSIS PATIENTS. Specimen Blood Narrative Performed At Research Animal Attendant ID - PIAYA L [facility] Specimen moderately icteric Performing Organization Address City/State/Zipcode Phone Number [facility] [address] [place] [address] CENTER TRANSFUSION SERVICE REPORT - SCAN (01/24/2020 6:00 PM CDT)Only the most recent of8 resultswithin the time period is included. Narrative Performed At This result has an attachment that is no t available. PULMONARY FUNCTION - SCAN (01/24/2020 1:10 PM CDT) Narrative Performed At This result has an attachment that is no t available. Lung volumes (01/24/2020 10:41 AM CDT) Narrative Performed At Epifanio Giles, MAT CUTTER, ADDICTION COUNSELOR 2019 10:52 AM [facility] PFT CHARTING REPORT Infection Control/Hand Hygiene procedure s followed throughout the encounter with patient: Yes Patient Identification Method: Patient n celia verified on armband, and Medical record on armband, Is the order complete?: Yes Account ID#: [id number] Patient Name: Cici Calderon Birthdate: 1955 Age: 64 y.o.Sex: female Admission Date: 01/14/2020 Patient Status: Inpatient Reasons/Symptom for having the Test?: a history/complaint of a dyspnea Type of study/treatment ordered by physi kojo: Lung volume and Single Breath DLCO Lab Results Component Value Date HGB 8.7 (L) 01/24/2020 Ranges: Adult Male 13 - 16.8 g/dlA dult Female 12 - 15 g/dl 6 Minute Walk (read only) 01/23/202001/2301/24/2020 Pulse 55 51 54 SpO2 96 96 94 Study Date: 01/24/2020 Study Time: 1041 ASSESSMENT History & Physical Mode of Arrival: Ambulatory Pulse: 56 Resp: 18SPO2: 96 % RA Pain Assessment Pain:None TESTING/THERAPEUTICS Medications ordered or required for pro cedure: N/A PT EDUCATION/INSTRUCTIONS Barriers to learning: No known barriers to learning. Learning need identified: Yes, Patient/ Family/Guradian was informed of the ordered study by the david foss Barriers to performing study or treatme nt: Patient has no known disability to perform the study or treat ment. DISCHARGE The study was completed in accordance wi th the physician's order and patient released from the lab withou t adverse outcome. Pulmonary Funct Lab Spirometry (01/24/2020 10:41 AM CDT) Narrative Performed At Epifanio Giles RRT, ADDICTION COUNSELOR 2019 10:52 AM [facility] PFT CHARTING REPORT Infection Control/Hand Hygiene procedure s followed throughout the encounter with patient: Yes Patient Identification Method: Patient n celia verified on armband, and Medical record on armband, Is the order complete?: Yes Account ID#: [id number] Patient Name: Cici Calderon Birthdate: 1955 Age: 64 y.o.Sex: female Admission Date: 01/14/2020 Patient Status: Inpatient Reasons/Symptom for having the Test?: a history/complaint of a dyspnea Type of study/treatment ordered by physi kojo: Lung volume and Single Breath DLCO Lab Results Component Value Date HGB 8.7 (L) 01/24/2020 Ranges: Adult Male 13 - 16.8 g/dlA dult Female 12 - 15 g/dl 6 Minute Walk (read only) 01/23/202001/2301/24/2020 Pulse 55 51 54 SpO2 96 96 94 Study Date: 01/24/2020 Study Time: 1041 ASSESSMENT History & Physical Mode of Arrival: Ambulatory Pulse: 56 Resp: 18SPO2: 96 % RA Pain Assessment Pain:None TESTING/THERAPEUTICS Medications ordered or required for pro cedure: N/A PT EDUCATION/INSTRUCTIONS Barriers to learning: No known barriers to learning. Learning need identified: Yes, Patient/ Family/Guradian was informed of the ordered study by the david foss Barriers to performing study or treatme nt: Patient has no known disability to perform the study or treat ment. DISCHARGE The study was completed in accordance wi the physician's order and patient released from the lab withou t adverse outcome. DLCO (single breath diffusion) (01/24/2020 10:41 AM CDT) Narrative Performed At Epifanio Giles RRT, [facility] 2019 10:52 AM [facility] PFT CHARTING REPORT Infection Control/Hand Hygiene procedure s followed throughout the encounter with patient: Yes Patient Identification Method: Patient n celia verified on armband, and Medical record on armband, Is the order complete?: Yes Account ID#: [id number] Patient Name: Cici Calderon Birthdate: 1955 Age: 64 y.o.Sex: female Admission Date: 01/14/2020 Patient Status: Inpatient Reasons/Symptom for having the Test?: a history/complaint of a dyspnea Type of study/treatment ordered by physi kojo: Lung volume and Single Breath DLCO Lab Results Component Value Date HGB 8.7 (L) 01/24/2020 Ranges: Adult Male 13 - 16.8 g/dlA dult Female 12 - 15 g/dl 6 Minute Walk (read only) 01/23/202001/2301/24/2020 Pulse 55 51 54 SpO2 96 96 94 Study Date: 01/24/2020 Study Time: 1041 ASSESSMENT History & Physical Mode of Arrival: Ambulatory Pulse: 56 Resp: 18SPO2: 96 % RA Pain Assessment Pain:None TESTING/THERAPEUTICS Medications ordered or required for pro cedure: N/A PT EDUCATION/INSTRUCTIONS Barriers to learning: No known barriers to learning. Learning need identified: Yes, Patient/ Family/Guradian was informed of the ordered study by the david foss Barriers to performing study or treatme nt: Patient has no known disability to perform the study or treat ment. DISCHARGE The study was completed in accordance wi the physician's order and patient released from the lab withou t adverse outcome. 6 MINUTE WALK(FOR LUNG TRANSPLANT ONLY) (01/24/2020 10:20 AM CDT) Narrative Performed At Janina Meehan RRT, [facility] 20192:39 PM SLE PFT CHARTING REPORT Infection Control/Hand Hygiene procedure s followed throughout the encounter with patient: Yes Patient Identification Method: Patient n celia verified on armband, and Medical record on armband, Is the order complete?: Account ID#: [id number] Patient Name: Cici Calderon Birthdate: 1955 Age: 64 y.o.Sex: female Admission Date: 01/14/2020 Patient Status: Inpatient Reasons/Symptom for having the Test?: pemberton rgical clearance Type of study/treatment ordered by physi kojo: 6 minute walk Lab Results Component Value Date HGB 8.7 (L) 01/24/2020 Ranges: Adult Male 13 - 16.8 g/dlA dult Female 12 - 15 g/dl 6 Minute Walk (read only) 01/24/202001/2301/24/2020 BP Pre - - - Start Time - - - Benson Perceived Exertion Scale Pre - - - Ordering Physician - - - Interval 12 - - Pulse 69 56 59 SpO2 96 96 95 Supplemental O2 Flow Activity 0 - - Activity Walking - - Total Distance (in mts) 137 - - BP Post 109/53 - - Tank Pulled? N - - Tank Carried? Y - - End Time 10:26 AM - - Benson Perceived Exertion Scale Post 0 - - Study Date: 01/24/20 Study Time: 1020 ASSESSMENT History & Physical Mode of Arrival: Wheel chair Pulse: 59 Resp: 18SPO2: 92 %on RA Pain Assessment Pain:None TESTING/THERAPEUTICS Medications ordered or required for pro cedure: N/A PT EDUCATION/INSTRUCTIONS Barriers to learning: No known barriers to learning. Learning need identified: Yes, Patient/ Family/Guradian was informed of the ordered study by the david foss Barriers to performing study or treatme nt: Patient has no known disability to perform the study or treat ment. DISCHARGE The study was completed in accordance wi th the physician's order and patient released from the lab withou t adverse outcome. Prepare Leuko-Red RBC (01/23/2020 11:54 PM CDT)Only the most recent of2 results within the time period is included. CROSSMATCH COMPATIBLE SAFETRACE TX Unit ABO A Pos SAFETRACE TX UNIT NUMBER [id number] SAFETRACE TX Status TX_TIMEINCHART SAFETRACE TX Blood Bank Product RED BLOOD CELLS [place]AFET[place]ACE [place] PRODUCT CODE [id number] [place] Specimen Other Performing Organization Address City/[facility]/Zipcode Phone Number [employer] [place] B-type Natriuretic Factor (BNP) (01/23/2020 4:32 AM CDT)Only the most recent of 2 resultswithin the time period is included. BNP 2,179 (H) 0 - 100 pg/mL [facility] [place] Specimen Blood Narrative Performed At Research Animal Attendant ID - MITCH Linares [facility] Performing Organization Address City/[facility] Phone Number [address] [address] CENTER Prepare Leuko-Red PLT (01/22/2020 11:54 PM CDT)Only the most recent of2 results within the time period is included. Unit ABO A Pos SAFETRACE TX UNIT NUMBER [id number] SAFETRACE TX Status WORK IN PROGRESS SAFETRACE TX Blood Bank Product PLATELETS SAFETRACE TX PRODUCT CODE [id number] SAFETRACE TX Unit ABO O Pos SAFETRACE TX UNIT NUMBER [id number] SAFETRACE TX Status TX_TIMEINCHART SAFETRACE TX Blood Bank Product PLATELETS SAFETRACE TX PRODUCT CODE [id number] SAFETRACE [place] Specimen Blood Performing Organization Address [facility] Phone Number SAFETRACE [place] Transfuse Leuko-Red RBC (01/22/2020 2:30 PM CDT)Only the most recent of4 resultswithin the time period is included.Cortisol (01/22/2020 8:23 AM CDT)Only the most recent of2 resultswithin the time period is included. Cortisol, Total 1.6 (L) 3.7 - 19.4 ug/dL [facility] Specimen Blood Narrative Performed At Research Animal Attendant ID - MITCH [place] [facility] Performing Organization Address City/[facility]/Zipcode Phone Number [address] [address] CENTER ABORH, manual (01/22/2020 4:34 AM CDT) ABO Grouping A [facility] Rh Factor POS [facility] Specimen Blood Performing Organization Address [facility] Hospitalcome Phone Number [address] [address] Direct AHG (RAMIREZ)/Direct Jewel (01/22/2020 4:34 AM CDT) Direct AHG-IGG NEGATIVE [facility] Direct AHG-C3B, C3D NEGATVIE [facility] Specimen Blood Performing Organization Address [facility]/Zipcode Phone Number [address] [address] Body fluid culture + gram stain (01/21/2020 4:54 PM CDT) Result No growth [facility] [place] Gram Stain Result <1+ White blood cells seen [facility] Gram Stain Result No organisms seen [facility] Specimen Body Fluid Performing Organization Address [facility]/Zipcode Phone Number [address] [address] CENTER Body fluid cell count with differential (01/21/2020 4:54 PM CDT) Appearance Hazy (A) Clear [facility] [place] Color Cele (A) Colorless, Straw [facility] RBCs 4,000 (H) <=1 /cu mm [facility] [place] Adjusted WBC Count 86 (H) <=5 /cu mm [facility] Lining Cells 1 <=1 /cu mm [facility] [place] % Segs 7 % [facility] [place] % Lymphs 83 % [facility] [place] % Monos 10 % [facility] [place] % Eos 0 % [facility] [place] % Baso 0 % [facility] [place] Container Body Fluid Sterile Vial [facility] Specimen Body Fluid Performing Organization Address City/State/Zipcode Phone Number [facility] [address] [place] [address] CENTER US paracentesis (01/21/2020 4:40 PM CDT) Specimen Narrative Performed At FINAL REPORT [facility] Ultrasound guided paracentesis Clinical History:Ascites. Sedation: None. Watershed Program Manager: Christine Ward PA-C Supervising Physician: Natan Chisholm MD [employer] Operator:None. Estimated Blood Loss: < 1 mL. Specimen: 3700 mL of clear yellow fluid, samples sent to laboratory. Technique:Informed consent was obtai vandana.The risks of pain, bleeding, infection, bowel perforation, injury to adjacent structures, and adverse medication react ions were discussed with the patient. After informed consent was obtained, the patient's abdomen was scanned.The right lower quadrant of the abdomen was selected for paracentesis.After the largest f luid pocket area was marked, and the anterior abdominal wall was eval uated with color Doppler to exclude presence of blood vessels kelli sing the area, the skin was prepped and draped in the usual sterile manner.After local anesthesia was achieved with lidocaine, a 5 Panamanian one-step catheter was advanced into the peritoneal cavity under ultrasound guidance. After completion of drainage, the cathet er was removed. There was no evidence of complication. Impression: Successful ultrasound guided paracentesi s. Signed: Natan Chisholm MD Report Verified Date/Time:01/24/2020 09:43:05 Reading Location: [facility] [id number] [facility] Reading Room Procedure Note Interface, External Ris In - 01/24/2020 9:45 AM CDT FINAL REPORT Ultrasound guided paracentesis Clinical History: Ascites. Sedation: None. Watershed Program Manager: Christine Ward PA-C Supervising Physician: Natan Chisholm MD [employer] Operator: None. Estimated Blood Loss: < 1 mL. Specimen: 3700 mL of clear yellow fluid, samples sent to laboratory. Technique: Informed consent was obtaine d. The risks of pain, bleeding, infection, bowel perforation, injury to adjacent structures, and adverse medication react ions were discussed with the patient. After informed consent was ob tained, the patient's abdomen was scanned. The right lower quadrant o f the abdomen was selected for paracentesis. After the largest flu id pocket area was marked, and the anterior abdominal wall was eval uated with color Doppler to exclude presence of blood vessels kelli sing the area, the skin was prepped and draped in the usual sterile manner. After local anesthesia was achieved with lidocaine, a 5 Panamanian one-step catheter was advanced into the peritoneal cavity under ultrasound guidance. After completion of drainage, the cathet er was removed. There was no evidence of complication. Impression: Successful ultrasound guided paracentesi s. Signed: Natan Chisholm MD Report Verified Date/Time: 01/24/2020 0 9:43:05 Reading Location: [facility] P006J [facility] [place] Reading Room Performing Organization Address City/State/Zipcode Phone Number [facility] Peripheral Blood Smear - Hold only (01/21/2020 9:31 AM CDT) Peripheral Smear Save saved [facility] Specimen Blood Performing Organization Address City/State/Zipcode Phone Number [facility] [address] [place] [address] CENTER Dexamethasone serum level (01/21/2020 9:31 AM CDT) Scan Result [facility] Specimen Blood Narrative Performed At This result has an attachment that is no t available. Performing Organization Address City/State/Zipcode Phone Number [facility] [address] [facility], [place] Reticulocyte count (01/21/2020 9:31 AM CDT)Only the most recent of2 results within the time period is included. % Retic 5.3 (H) 0.5 - 1.7 % [facility] [place] Specimen Blood Narrative Performed At Research Animal Attendant ID - [id number] [facility]AL CENTER Performing Organization Address City/State/Zipcode Phone Number [facility] [address] [place] [address] CENTER XR chest 1 view portable / bedside (01/21/2020 9:10 AM CDT)Only the most recent of2 resultswithin the time period is included. Specimen Narrative Performed At FINAL REPORT [facility] INDICATION: Edema COMPARISON: January 20, 2020 TECHNIQUE: Single frontal view of the est. FINDINGS: Lungs and pleura: Increased coarse bilat eral interstitial opacities, left greater than right concerning for w orsening interstitial edema No effusion. Heart and mediastinum: Normal heart size . Unremarkable mediastinal contours. Osseous structures: No acute abnormality . Other: None. IMPRESSION: Slight interval worsening of interstitia l edema Signed: Karen Walker MD Report Verified Date/Time:01/21/2020 10:03:32 Reading Location: [facility] Reading Room Procedure Note Interface, External Ris In - 01/21/2020 10:05 AM CDT FINAL REPORT INDICATION: Edema COMPARISON: January 20, 2020 TECHNIQUE: Single frontal view of the est. FINDINGS: Lungs and pleura: Increased coarse bilat eral interstitial opacities, left greater than right concerning for w orsening interstitial edema No effusion. Heart and mediastinum: Normal heart size . Unremarkable mediastinal contours. Osseous structures: No acute abnormality . Other: None. IMPRESSION: Slight interval worsening of interstitia l edema Signed: Karen Walker MD Report Verified Date/Time: 01/21/2020 1 0:03:32 Reading Location: [facility] Reading Room Performing Organization Address City/State/Zipcode Phone Number RIS Metanephrines, 24 hour urine (01/20/2020 10:51 PM CDT) TOTAL VOLUME 1000 mL [facility] Metanephrine 205 90 - 315 [facility] Comment: mcg/24 h INCORPORATED This test was developed and its analytical perfo rmance characteristics have been determined by [facility]. It has not been cleared or approved by FDA. This assay has been validated pursuant to the CLIA regulations and is used for clinical purposes. Normetanephrine [phone] 206 [facility] Comment: mcg/24 h INCORPORATED This test was developed and its analytical perfo rmance characteristics have been determined by [facility]. It has not been cleared or approved by FDA. This assay has been validated pursuant to the CLIA regulations and is used for clinical purposes. Metaneph, Total, 24H Ur 862 (H) 224 - 832 [facility] Comment: mcg/24 h INC[facility]PORATED A four-fold elevation of urinary normetanephrine s is extremely likely to be due to a tumor, while a four-fold elevation of u rinary metanephrines is highly suggestive, but not diagnostic, of a tumo r. Measurement of plasma metanephrines and chromogranin A is recommended for confirmation. This test was developed and its analytical perfo rmance characteristics have been determined by [facility]. It has not been cleared or approved by FDA. This assay has been validated pursuant to the CLIA regulations and is used for clinical purposes. Specimen Urine Narrative Performed At Performing Lab [facility] [employer] [facility] [facility] [address] [place] [address] I Shashank ADRIAN, PhD, AMINA Performing Organization Address City/State/Zipcode Phone Number [facility] [facility] [address] INCORPORATED [id number] [facility] Catecholamines, Fractionated, 24hr urine (01/20/2020 10:51 PM CDT) TOTAL VOLUME 1000 mL [facility] Epinephrine,24 Hr Ur <2 (L) 2 - 24 mcg/24 h [facility] Comment: INCORPORATED Result below clinical reportable range for this analyte, which is 2 mcg/L. Reported result was calculated using 2 mcg/L. This test was developed and its analytical perfo rmance characteristics have been determined by [facility] [facility]. It has not been cleared or approved by FDA. This assay has been validated pursuant to the CLIA regulations and is used for clinical purposes. Norepinephrine 9 (L) 15 - 100 mcg/24 [facility] Comment: h INCORPORATED This test was developed and its analytical perfo rmance characteristics have been determined by [facility]. It has not been cleared or approved by FDA. This assay has been validated pursuant to the CLIA regulations and is used for clinical purposes. Calculated Total E+Ne 9 (L) 26 - 121 mcg/24 [facility] Comment: h INCORPORATED This test was developed and its analytical perfo rmance characteristics have been determined by [employer] [facility]. It has not been cleared or approved by FDA. This assay has been validated pursuant to the CLIA regulations and is used for clinical purposes. Dopamine,24 Hr Ur <10 (L) 52 - 480 mcg/24 [facility] Comment: h INCORPORATED Result below clinical reportable range for this analyte, which is 10 mcg/L. Reported result was calculated using 10 mcg/L. This test was developed and its analytical perfo rmance characteristics have been determined by [employer] [facility]. It has not been cleared or approved by FDA. This assay has been validated pursuant to the CLIA regulations and is used for clinical purposes. Creatinine,24 Hr Urin 0.88 0.50 - 2.15 [facility] g/24 h INCORPORATED Specimen Urine Narrative Performed At Performing Lab [facility] [address] [place] [address] Mark Encarnacion MD, PhD, AMINA Performing Organization Address City/[facility] Hospital[facility] Phone Number [facility], [place] [address] [address] INCOR[address]ATED [address] Type and screen, automated (01/20/2020 8:39 PM CDT)Only the most recent of2 resultswithin the time period is included. ABO/RH AUTOMATED (BEREBECCA) A POSITIVE [facility] Ab Scrn NEGATIVE [facility] Specimen Blood Performing Organization Address City/[facility] Hospitalcode Phone Number [facility] [address] [place] [id number] MR abdomen without IV contrast (01/20/2020 5:54 PM CDT) Specimen Narrative Performed At FINAL REPORT [facility] TECHNIQUE: MRI of the abdomen WITHOUT in travenous contrast. INDICATION: Adrenal mass. COMPARISON: CT 01/19/2020 MRI 05/10/2016. FINDINGS: Exam is markedly limited due t o large volume ascites and lack of intravenous contrast. LOWER THORAX: Unremarkable. LIVER: Cirrhotic morphology of liver.. N o focal hepatic lesions within limitations of this noncontrast e xam. BILIARY: Gallbladder is unremarkable. No biliary ductal dilatation or filling defect. SPLEEN: Spleen is enlarged measuring 15 cm in craniocaudal dimension.. PANCREAS: No focal masses or ductal dila tation. ADRENALS: No significant interval change of the mildly T2 hyperintense/T1 hyperintense left adrena l lesion measuring 3.4 x 2.3 cm. This is unchanged in size since prev ious exam in 2016. On the prior exam the lesion did not demonstrat e enhancement. The lesion is isointense on but in and opposed phase i mages.. KIDNEYS/URETERS: No hydronephrosis or so lid mass lesions. PERITONEUM/RETROPERITONEUM: Large volume ascites.. LYMPH NODES: No lymphadenopathy. VESSELS: Evaluation of the vasculature i s limited on this noncontrast exam.. GI TRACT: There is a hiatal hernia. Ther e is susceptibility artifact from the clips in the proximal duodenum and at the GE junction.. BONES AND SOFT TISSUES: There is diffuse body wall edema.. Degenerative changes are noted in the sp ine. IMPRESSION: Markedly limited exam. Stable indeterminate 3.4 cm left adrenal lesion unchanged in size since 2016. Based on prior exam this lik adonay represents left adrenal cyst or pseudocyst containing hemorrhagi c/proteinaceous fluid. 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 INDICATION: Adrenal mass. COMPARISON: CT 01/19/2020 MRI 05/10/2016. FINDINGS: Exam is markedly limited due t o large volume ascites and lack of intravenous contrast. LOWER THORAX: Unremarkable. LIVER: Cirrhotic morphology of liver.. N o focal hepatic lesions within limitations of this noncontrast e xam. BILIARY: Gallbladder is unremarkable. No biliary ductal dilatation or filling defect. SPLEEN: Spleen is enlarged measuring 15 cm in craniocaudal dimension.. PANCREAS: No focal masses or ductal dila tation. ADRENALS: No significant interval change of the mildly T2 hyperintense/T1 hyperintense left adrena l lesion measuring 3.4 x 2.3 cm. This is unchanged in size since prev ious exam in 2016. On the prior exam the lesion did not demonstrat e enhancement. The lesion is isointense on but in and opposed phase i mages.. KIDNEYS/URETERS: No hydronephrosis or so lid mass lesions. PERITONEUM/RETROPERITONEUM: Large volume ascites.. LYMPH NODES: No lymphadenopathy. VESSELS: Evaluation of the vasculature i s limited on this noncontrast exam.. GI TRACT: There is a hiatal hernia. Ther e is susceptibility artifact from the clips in the proximal duodenum and at the GE junction.. BONES AND SOFT TISSUES: There is diffuse body wall edema.. Degenerative changes are noted in the sp ine. IMPRESSION: Markedly limited exam. Stable indeterminate 3.4 cm left adrenal lesion unchanged in size since 2016. Based on prior exam this lik adonay represents left adrenal cyst or pseudocyst containing hemorrhagi c/proteinaceous fluid. 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 P Signed: John Crocker MD Report Verified Date/Time: 01/21/2020 0 7:51:30 Reading Location: [facility] Reading Room - [place] [address] Performing Organization Address City/State/Zipcode Phone Number GE RIS Urinalysis w/Microscopic + Reflex to Culture (01/19/2020 11:19 PM CDT) [facility], UA Yellow [facility] Clarity, UA Hazy [facility] Specific [place], UA 1.017 1.001 - 1.035 [facility] pH, UA 5.5 5.0 - 8.[address] [facility] Protein, UA 20 mg/dL (A) Negative [facility] Glucose, UA Negative Negative [facility] Ketones[facility] UA Negative Negative [facility] Bilirubin, UA Negative Negative [facility] Blood, UA Small (A) Negative [facility] Nitrite, UA Negative Negative [facility] Leukocytes, UA Trace (A) Negative [facility] Urobilinogen, UA 0.2 0.2 - 1.0 mg/dL [facility] RBC, UA 1 /HPF [facility] WBC, UA 3 /HPF [facility] Bacteria, UA Rare [facility] Squam Epithel, UA 3 /HPF [facility] Hyaline Casts, UA 3 /LPF [facility] Specimen Source [facility] [place] Specimen Urine Performing Organization Address [facility] Hospitalcode Phone Number [address] [address] [place] Sodium, random urine (01/19/2020 11:19 PM CDT)Only the most recent of3 results within the time period is included. Sodium Urine <20 meq/L [facility] [place] Specimen Urine Narrative Performed At Reference Range: No Normals [facility] Research Animal Attendant ID - PIAYA L Performing Organization Address [facility] Hospitalcode Phone Number [address] [address] [place] Urinalysis w/Microscopic (01/19/2020 11:19 PM CDT)Only the most recent of2 resultswithin the time period is included. Color, UA Yellow [facility] [place] Clarity, UA Hazy [facility] [place] Specific [place], UA 1.017 1.001 - 1.035 [facility] pH, UA 5.5 5.0 - 8.[address] [facility] [place] Protein, UA 20 mg/dL (A) Negative [facility] [place] Glucose, UA Negative Negative [facility] Ketones, UA Negative Negative [facility] Bilirubin, UA Negative Negative [facility] [place] Blood, UA Small (A) Negative [facility] [place] Nitrite, UA Negative Negative [facility] Leukocytes, UA Trace (A) Negative [facility] [place] Urobilinogen, UA 0.2 0.2 - 1.0 mg/dL [facility] RBC, UA 1 /HPF [facility] [place] WBC, UA 3 /HPF [facility] [place] Bacteria, UA Rare [facility] [place] Squam Epithel, UA 3 /HPF [facility] Hyaline Casts, UA 3 /LPF [facility] Specimen Source [facility] [place] Specimen Urine Narrative Performed At Research Animal Attendant ID - [auto] [facility] Research Animal Attendant ID - tech Performing Organization Address City/State/Zipcode Phone Number [facility] [address] [place] [address] [place] Blood Culture - Routine (Right Venipuncture) (01/19/2020 9:45 PM CDT)Only the most recent of4 resultswithin the time period is included. Result No growth in 5 days [facility] Specimen Blood Performing Organization Address [facility]/Zipcode Phone Number [address] [address] [place] [id number] PHENOTYP (01/19/2020 9:43 PM CDT) Specimen Blood Narrative Performed At This result has an attachment that is no t available. Performing Organization Address [facility] Hospitalcode Phone Number [facility] [address] [place], [place] Blood gas, arterial (01/19/2020 3:44 PM CDT) pH, Arterial 7.42 7.35 - 7.[address] [facility] [place] pCO2, Arterial 36 35 - [address] [facility] [place] pO2, Arterial 78 (L) 80 - [address] [facility] [place] O2 Sat, Arterial 96.2 96.0 - 97.0 % [facility] H[facility]3, Arterial 23 21 - 29 mmol/L [facility] [place] Base Excess, Arterial -1.9 -2.0 - 3.0 mmol/L [facility] Patient Temperature 36.1 C [facility] FIO2 28.0 % [facility] [place] Specimen Blood, Arterial Performing Organization Address [facility] Hospitalcode Phone Number [address] [address] CENTER Cryptococcal antigen (01/19/2020 3:04 PM CDT) Cryptococcal Antigen, Serum Negative Negative, Interferen ce [facility] Specimen Blood Performing Organization Address [facility]/Zipcode Phone Number [address] [address] CENTER Rubeola antibody IgG (01/19/2020 3:04 PM CDT) Rubeola Ab, Igg 235.00 AU/mL [facility] Comment: INCORPORATED REFERENCE RANGE:<13.50AU/mL AU/mL I nterpretation ====== <13.50 Negative 13.50-16.49 Equivocal >16.49 Positive A positive result indicates that the patient has antibody to measles virus. It does not differentiate between an active or past infectio n. The clinical diagnosis must be interpreted in conjunction with clinical signs and symptoms of the patient. For additional information, please refer to http://education.HQ plus/faq/KFT407 (This link is being provided for informational/ educational purposes only.) Specimen Blood Narrative Performed At Performing Lab [facility] *QDID [employer] [facility] [employer] [address] [place] [phone] Sudhakar Hargrove MD Performing Organization Address [facility] Hospitalcode Phone Number [facility] [place] [address] [address] [place] [address] Rubella antibody, IgG (01/19/2020 3:04 PM CDT) Rubella IgG Quant 127.0 (H) <8.0 IU/mL [facility] Specimen Blood Narrative Performed At Rubella IgG Result Interpretation: [facility] </= 7.0 IU/mL Negative - Presumed non-immune 8.0 - 9.9 IU/mL Equivocal >= 10.0 IU/mL Positive - Presumed immune Performing Organization Address [facility] Hospitalcode Phone Number [facility] [address] [place] [address] CENTER Varicella zoster antibody, IgG (01/19/2020 3:04 PM CDT) Varicella IgG 3.[address] [facility] [place] Specimen Blood Narrative Performed At VARICELLA ZOSTER RESULT INTERPRETATIONS: [facility] <=0.8 AlNonreactive:Presumed non-immune to VZV 0.9-1.0 AlEquiv ocal >=1.1 AlReactive:Presumed immune to VZV Performing Organization Address [facility]/State/Zipcode Phone Number [facility] [address] [place] [address] CENTER Mumps antibody, IgG (01/19/2020 3:04 PM CDT) Mumps Ab Igg >300.00 AU/mL [facility] Comment: REFERENCE RANGE: <9.00 AU/mLInterpretation <9.00Negative 9.00-10.99 Equivocal >10.99 Positive A positive result indicates that the patient has antibody to mumps virus. It does not differentia te between an active or past infection.The clin ical diagnosis must be interpreted in conjunction wit h clinical signs and symptoms of the patient. Specimen Blood Narrative Performed At Performing Lab [facility] *[facility] [employer] [facility] [employer] [address] [place] [phone] Sudhakar Hargrove MD Performing Organization Address City/[facility] Hospitalcode Phone Number [facility] [place] [address] INCORPORATED [address] [facility] US breast bilateral (01/19/2020 9:10 AM CDT) Specimen Narrative Performed At FINAL REPORT RIS COMPLETE ULTRASOUND OF BOTH BREASTS AND AXILLA: 01/19/2020 Color flow and real-time ultrasound of b oth breasts four quadrants, retroareolar, and axilla regions were pe rformed.Hein scale images of the real-time examination were review ed. No significant abnormalities were seen s onographically in either breast. IMPRESSION: BENIGN The findings have been discussed with th e patient. There is no sonographic evidence of bette gnancy. Correlation with mammography is recommen ded. Signed: Jorge Brooks MD Report Verified Date/Time:01/19/2020 09:52:28 Reading Location: [address] Mammo Re ading Room Procedure Note Interface, External Ris In - 01/19/2020 9:54 AM CDT FINAL REPORT COMPLETE ULTRASOUND OF BOTH BREASTS AND AXILLA: 01/19/2020 Color flow and real-time ultrasound of b oth breasts four quadrants, retroareolar, and axilla regions were pe rformed. Hein scale images of the real-time examination were review ed. No significant abnormalities were seen s onographically in either breast. IMPRESSION: BENIGN The findings have been discussed with th e patient. There is no sonographic evidence of bette gnancy. Correlation with mammography is recommen ded. Signed: Jorge Brooks MD Report Verified Date/Time: 01/19/2020 0 9:52:28 Reading Location: [address] Mammo Re [address]ing Room Performing Organization Address City/[facility] Hospitalcode Phone Number RIS Aldosterone (01/19/2020 4:11 AM CDT) Aldosterone 22 ng/dL [employer] [facility] Comment: Adult Reference Ranges for Aldosterone: Upright 8:00-10:00 am< or = 28 ng/d L Upright 4:00-6:00 pm < or = 21 ng/d L Supine8:00-10:00 am3-16 ng/dL This test was developed and its analytical perfo rmance characteristics have been determined by [facility]. It has not been cleared or approved by FDA. This assay has been validated pursuant to the CLIA regulations and is used for clinical purposes. Specimen Blood Narrative Performed At Performing Lab [facility] [address] [place] [address] Mark Encarnacion MD, PhD, AMINA Performing Organization Address [facility] Hospitalcome Phone Number [facility] [place] [address] INCORPORATED [address] [facility] Renin, plasma (01/19/2020 4:11 AM CDT) PRA,LC/MS/MS 1.51 0.25 - 5.82 [employer] Comment: ng/mL/h INCORPORATED This test was developed and its analytical perfo rmance characteristics have been determined by [facility]. It has not been cleared or approved by FDA. This assay has been validated pursuant to the CLIA regulations and is used for clinical purposes. Specimen Blood Narrative Performed At Performing Lab [facility] [address] [address] [place] [address] Mark Encarnacion MD, PhD, AMINA Performing Organization Address City/State/Zipcode Phone Number [facility] [place], [place], [place] [address] INCORPORATED [address] [facility] CT abdomen without IV contrast (01/19/2020 12:40 AM CDT) Specimen Narrative Performed At FINAL REPORT [facility] TECHNIQUE: CT of the abdomen WITHOUT int ravenous contrast and WITHOUT oral contrast. Dose modulation, iterativ e reconstruction, and/or weight-based adjustment of the mA/kV was utilized to reduce the radiation dose to as low as reasonably a chievable. INDICATION: Adrenal nodule. COMPARISON: 05/02/2017, MRI April 2016 week, ultrasound 01/19/2020 FINDINGS: ABSENCE OF INTRAVENOUS CONTRAST DECREASE S SENSITIVITY FOR DETECTION OF FOCAL LESIONS AND VASCULAR PATHOLOGY. LOWER THORAX: Trace left-sided pleural e ffusion.. There are patchy ground glass opacities and mild interlob ular septal thickening in the left lower lobe and lingula. Reticular o pacities in the right lung base likely representing focal fibrosis. Emphysematous changes are noted. HEPATOBILIARY: Cirrhotic shrunken liver. No focal liver lesion on this limited noncontrast exam. Gallbladd er is unremarkable. No biliary ductal dilatation. SPLEEN: Spleen is enlarged measuring 14. 5 cm in craniocaudal dimension.. PANCREAS: No focal masses or ductal dila tation. ADRENALS: 3.5 x 2.7 cm left adrenal nodu le with density measuring 30 Hounsfield units. (See axial image 26). The nodule has not really changed in size since April 2017. This lesion appears cystic on the recent ultrasound and did not enhance on the prior contrast-enhanced MRI or CT. The lesions demonstrate incre ased signal on T1 images suggesting hemorrhagic/proteinaceous flu id. KIDNEYS/URETERS: No hydronephrosis, ston es, or solid mass lesions. PERITONEUM/RETROPERITONEUM: Large volume ascites. LYMPH NODES: No lymphadenopathy. VESSELS: Unremarkable. GI TRACT: No distention or wall thickeni ng. BONES AND SOFT TISSUES: There is mild di ffuse body wall edema.. IMPRESSION: Stable indeterminate 3.5 cm left adrenal nodule, unchanged in size since May 16, 2017. Based on compari son with prior imaging this may represent an adrenal cyst or pseudoc yst containing hemorrhagic/proteinaceous fluid. Cirrhosis with sequelae of portal hypert ension including large volume ascites. Patchy right basilar opacities in the le ft lower lobe and lingula with trace left-sided pleural effusion c oncerning for pneumonia. Signed: John Crocker MD Report Verified Date/Time:01/19/2020 08:09:04 Reading Location: [facility] Reading Room - [place] [address] Procedure Note Interface, External Ris In - 01/19/2020 8:11 AM CDT FINAL REPORT TECHNIQUE: CT of the abdomen WITHOUT int ravenous contrast and WITHOUT oral contrast. Dose modulation, iterativ e reconstruction, and/or weight-based adjustment of the mA/kV was utilized to reduce the radiation dose to as low as reasonably a chievable. INDICATION: Adrenal nodule. COMPARISON: 05/02/2017, MRI April 2016 week, ultrasound 01/19/2020 FINDINGS: ABSENCE OF INTRAVENOUS CONTRAST DECREASE S SENSITIVITY FOR DETECTION OF FOCAL LESIONS AND VASCULAR PATHOLOGY. LOWER THORAX: Trace left-sided pleural e ffusion.. There are patchy ground glass opacities and mild interlob ular septal thickening in the left lower lobe and lingula. Reticular o pacities in the right lung base likely representing focal fibrosis. Emphysematous changes are noted. HEPATOBILIARY: Cirrhotic shrunken liver. No focal liver lesion on this limited noncontrast exam. Gallbladd er is unremarkable. No biliary ductal dilatation. SPLEEN: Spleen is enlarged measuring 14. 5 cm in craniocaudal dimension.. PANCREAS: No focal masses or ductal dila tation. ADRENALS: 3.5 x 2.7 cm left adrenal nodu le with density measuring 30 Hounsfield units. (See axial image 26). The nodule has not really changed in size since April 2017. This lesion appears cystic on the recent ultrasound and did not enhance on the prior contrast-enhanced MRI or CT. The lesions demonstrate incre ased signal on T1 images suggesting hemorrhagic/proteinaceous flu id. KIDNEYS/URETERS: No hydronephrosis, ston es, or solid mass lesions. PERITONEUM/RETROPERITONEUM: Large volume ascites. LYMPH NODES: No lymphadenopathy. VESSELS: Unremarkable. GI TRACT: No distention or wall thickeni ng. BONES AND SOFT TISSUES: There is mild di ffuse body wall edema.. IMPRESSION: Stable indeterminate 3.5 cm left adrenal nodule, unchanged in size since May 16, 2017. Based on compari son with prior imaging this may represent an adrenal cyst or pseudoc yst containing hemorrhagic/proteinaceous fluid. Cirrhosis with sequelae of portal hypert ension including large volume ascites. Patchy right basilar opacities in the le ft lower lobe and lingula with trace left-sided pleural effusion c oncerning for pneumonia. Signed: John Crocker MD Report Verified Date/Time: 01/19/2020 0 8:09:04 Reading Location: [facility] Reading Room - [place] [address] Performing Organization Address City/State/Zipcode Phone Number Thumb US renal complete (01/19/2020 12:20 AM CDT) Specimen Narrative Performed At FINAL REPORT [facility] Ultrasound of the Kidneys Clinical History:Re-examine L Adrena l Mass - unable to safely perform CT or MRI Discussion: Sonographic evaluation of the kidneys wa s performed. There is no prior study for direct comparison. Corre lation is made with CT abdomen 05/02/2017, outside CT abdomen and outside MRI abdomen 05/10/2016. Right kidney:10.7 x 4.2 x 5.7 cm, wi th cortical thickness of 1.2 cm.Normal cortical echogenicity.No mass.No shadowing calculus. No hydronephrosis. Left kidney: 11.4 x 5 x 5.6 cm, with cor tical thickness of 1.4 cm. Normal cortical echogenicity.No mass.No shadow ing calculus.No hydronephrosis. Limited doppler evaluation of bilateral main renal arteries and veins demonstrate patency. Bladder:Not visualized which may be due to decompression. Miscellaneous: 3.7 x 3.1 x 2.3 cm hypoec hoic left suprarenal mass without associated hypervascularity. Cir rhotic liver. Large abdominal ascites. Impression: No hydronephrosis. 3.7 x 3.1 x 2.3 cm cystic left suprarena l mass indeterminate on the basis of the current exam.Please cor relate with reports of prior CT and MRI. Signed: Maira Sneed MD Report Verified Date/Time:01/19/2020 01:26:59 Procedure Note Interface, External Ris In - 01/19/2020 1:29 AM CDT FINAL REPORT Ultrasound of the Kidneys Clinical History: Re-examine L Adrenal Mass - unable to safely perform CT or MRI Discussion: Sonographic evaluation of the kidneys wa s performed. There is no prior study for direct comparison. Corre lation is made with CT abdomen 05/02/2017, outside CT abdomen and outside MRI abdomen 05/10/2016. Right kidney: 10.7 x 4.2 x 5.7 cm, with cortical thickness of 1.2 cm. Normal cortical echogenicity. No m ass. No shadowing calculus. No hydronephrosis. Left kidney: 11.4 x 5 x 5.6 cm, with cor tical thickness of 1.4 cm. Normal cortical echogenicity. No mass. No shadowing calculus. No hydronephrosis. Limited doppler evaluation of bilateral main renal arteries and veins demonstrate patency. Bladder: Not visualized which may be du e to decompression. Miscellaneous: 3.7 x 3.1 x 2.3 cm hypoec hoic left suprarenal mass without associated hypervascularity. Cir rhotic liver. Large abdominal ascites. Impression: No hydronephrosis. 3.7 x 3.1 x 2.3 cm cystic left suprarena l mass indeterminate on the basis of the current exam. Please corre late with reports of prior CT and MRI. Signed: Maira Sneed MD Report Verified Date/Time: 01/19/2020 0 1:26:59 Performing Organization Address City/State/Zipcode Phone Number GE RIS Protein, random urine (01/18/2020 8:49 PM CDT) Protein, Urine 45 (H) 0 - 14 mg/dL [facility] Specimen Urine - Urine, Sterile Collection Narrative Performed At Research Animal Attendant ID - EDWIN B [facility] Performing Organization Address [facility]/Zipcode Phone Number [address] [address] CENTER Creatinine, random urine (01/18/2020 8:49 PM CDT)Only the most recent of2 resultswithin the time period is included. Creatinine, Ur 181.3 mg/dL [facility] [place] [place] Specimen Urine - Urine, Sterile Collection Narrative Performed At Reference Range: No Normals [facility] Research Animal Attendant ID - EDWIN B Performing Organization Address [facility] Phone Number [address] [address] [place] Eosinophil smear (01/18/2020 8:49 PM CDT) Eosinophil Smear Rare EOS =less than 5% No EOS seen [facility] WBCs seen are EOS (A) [facility] Specimen Urine - Urine, Sterile Collection Performing Organization Address [facility] Phone Number [address] [address] [place] Myocardial Perfusion Pet/CT (Rest & Stress) (01/18/2020 9:20 AM CDT) Specimen Narrative Performed At FINAL REPORT Thumb PROCEDURE: MYOCARDIAL PERFUSION PET IMAG ING (Rest/Stress) CPT CODE: 57643 INDICATION: Evaluation for liver transpl ant CARDIOVASCULAR PROFILE: Symptoms: None CAD History: None Risk Factors: Obesity BMI: 35.2 Medications: None STRESS PROTOCOL: Pharmacologic stress was achieved with a 10-second intravenous infusion of regadenoson 0.4 mg. IMAGING PROTOCOL: Limited low-dose CT imaging was performe d for attenuation correction. 40.1 mCi of Rb-82 chloride was injected intravenously at rest, and PET images were obtained. Then, 40.2 mCi of Rb-82 chloride was injected intravenously at peak stress, a nd PET images were obtained. REST FINDINGS: HR: 64 /min BP: 119/50 mmHg Prelim. EKG: Normal sinus rhythm. Perfusion: Normal. Wall Motion: Normal (LVEF 79%). LV Volume: Normal. RV Volume: Normal. STRESS FINDINGS: HR: 69 /min (44% of MPHR) BP: 129/49 mmHg Prelim. EKG: No ischemic changes. Symptoms: None (treatment not required). Perfusion: Normal. Wall Motion: Normal (LVEF 90%). LV Volume: Unchanged from rest. IMPRESSION: 1. Normal study. 2. Normal myocardial perfusion. 3. Normal global LV function, which does not deteriorate with stress. 4. Normal extracardiac tracer distributi on. 5. There is no prior study for compariso n. Signed: Jennifer Melo MD Report Verified Date/Time:01/18/2020 12:45:40 Reading Location: [address] Med Reading Room Procedure Note Interface, External Ris In - 01/18/2020 12:47 PM CDT FINAL REPORT PROCEDURE: MYOCARDIAL PERFUSION PET IMAG ING (Rest/Stress) CPT CODE: 11218 INDICATION: Evaluation for liver transpl ant CARDIOVASCULAR PROFILE: Symptoms: None CAD History: None Risk Factors: Obesity BMI: 35.2 Medications: None STRESS PROTOCOL: Pharmacologic stress was achieved with a 10-second intravenous infusion of regadenoson 0.4 mg. IMAGING PROTOCOL: Limited low-dose CT imaging was performe d for attenuation correction. 40.1 mCi of Rb-82 chloride was injected intravenously at rest, and PET images were obtained. Then, 40.2 mCi of Rb-82 chloride was injected intravenously at peak stress, a nd PET images were obtained. REST FINDINGS: HR: 64 /min BP: 119/50 mmHg Prelim. EKG: Normal sinus rhythm. Perfusion: Normal. Wall Motion: Normal (LVEF 79%). LV Volume: Normal. RV Volume: Normal. STRESS FINDINGS: HR: 69 /min (44% of MPHR) BP: 129/49 mmHg Prelim. EKG: No ischemic changes. Symptoms: None (treatment not required). Perfusion: Normal. Wall Motion: Normal (LVEF 90%). LV Volume: Unchanged from rest. IMPRESSION: 1. Normal study. 2. Normal myocardial perfusion. 3. Normal global LV function, which does not deteriorate with stress. 4. Normal extracardiac tracer distributi on. 5. There is no prior study for compariso n. Signed: Jennifer Melo MD Report Verified Date/Time: 01/18/2020 1 2:45:40 Reading Location: [address] Reading Room Performing Organization Address City/State/Zipcode Phone Number GE RIS Treadmill tolerance(Non-Nuclear Treadmill) (01/18/2020 8:57 AM CDT) Specimen Narrative Performed At Protocol Name Regadenoson GE MUSE Time In Exercise Phase 00:01:00 Max. Systolic BP 129 mmHg Max Diastolic BP 49 mmHg Max Heart Rate 69 BPM Max Predicted Heart Rate 155 BPM Reason For Termination Predetermined end point Reason for Test Pre operative cardiac cl earance for liver transpl Target HR Formula (220 - Age)*100% Arrhythmias none Resting ECG Normal sinus rhythm Early Precordial transition ST Changes No Significant Changes Overall Impression Indeterminate due to pharmacological stress Chest Pain none HR Response To Exercise BP Response To Exercise midodrine Confirmed by fellow Bc Chávez ([id number]) o n 01/18/2020 9:20:19 AM Confirmed by Shaq GARCIA MICHAEL ([id number]) on 0 7:03:55 AM Procedure Note Interface, External Ris In - 01/19/2020 7:04 AM CDT Protocol Name Regadenoson Time In Exercise Phase 00:01:00 Max. Systolic BP 129 mmHg Max Diastolic BP 49 mmHg Max Heart Rate 69 BPM Max Predicted Heart Rate 155 BPM Reason For Termination Predetermined end point Reason for Test Pre operative cardiac cl earance for liver transpl Target HR Formula (220 - Age)*100% Arrhythmias none Resting ECG Normal sinus rhythm Early Precordial transition ST Changes No Significant Changes Overall Impression Indeterminate due to pharmacological stress Chest Pain none HR Response To Exercise BP Response To Exercise midodrine Confirmed by fellow Bc Chávez [id number]) o n 01/18/2020 9:20:19 AM Confirmed by Shaq GARCIA MICHAEL ([id number]) on 01/19/2020 7:03:55 AM Performing Organization Address City/State/Zipcode Phone Number GE MUSE ECG 12 lead (01/18/2020 8:46 AM CDT)Only the most recent of2 resultswithin the time period is included. Specimen Narrative Performed At Ventricular Rate 62 BPM GE MUSE Atrial Rate 62 BPM P-R Interval 138 ms QRS Duration 86 ms Q-T Interval 452 ms QTC Calculation(Bazett) 458 ms P [place] 59 degrees R [place] 32 degrees T [place] 56 degrees Normal sinus rhythm Low voltage QRS Nonspecific ST abnormality 17 JAN 2020 11:05 Nonspecific T wave abnormality Nonspecific T wave abno rmality, improved in QT has shortened Confirmed by MD DOUGHERTY YOCHAI ([id number]) on 01/18/2020 2:19:38 PM Procedure Note Interface, External Ris In - 01/18/2020 2:19 PM CDT Ventricular Rate 62 BPM Atrial Rate 62 BPM P-R Interval 138 ms QRS Duration 86 ms Q-T Interval 452 ms QTC Calculation(Bazett) 458 ms P [place] 59 degrees R [place] 32 degrees T [place] 56 degrees Normal sinus rhythm Low voltage QRS Nonspecific ST abnormality 17 JAN 2020 11:05 Nonspecific T wave abnormality Nonspecif ic T wave abnormality, improved in QT has shortened Confirmed by MD DOUGHERTY YOCHAI ([id number]) on 01/18/2020 2:19:38 PM Performing Organization Address City/State/[facility] Phone Number GE MUSE T Spot TB (01/18/2020 6:10 AM CDT) T-Spot TB Negative [facility] Neg Ctrl Spot Count 0 [facility] Panel A Spot 0 [facility] Panel B Spot 0 [facility] Pos Ctrl Spot Ct 0 [facility] Scan Result [facility] Specimen Blood Narrative Performed At This result has an attachment that is no t available. Performing Organization Address City/State/[facility] Phone Number [facility] [address] [place] [address] [facility]ATOR[facility] [address] REPORT OF PROCEDURE - ENDOSCOPY URL (01/17/2020 9:11 AM CDT) Narrative Performed At This result has an attachment that is no t available. REPORT OF PROCEDURE - ENDOSCOPY URL (01/17/2020 8:39 AM CDT) Narrative Performed At This result has an attachment that is no t available. Tissue Exam (01/17/2020 8:15 AM CDT) Case Report Surgical Pathology Report Case: [id number] [facility] Authorizing Provider:Sylvie Larry MDCollected: 01/17/2020 08:15 AM [facility] Ordering Location: [address] Received:01/17/2020 01:50 PM Service Pathologist: Humaira Mendez MD Specimen:Duodenum, biopsy ADDENDUM THIS ADUODENUMIS ISSUED TO R EPORT THE FINDINGS IN THE DEEPER LEVELS OF THE BIOPSY AND GIVE THE FINAL DIAGNOSIS: [facility] DUODENUM, ENDOSCOPIC BIOPSY: - ECTATIC VESSELS IN THE LAMINA PROPRIA, SUGGE STIVE OF PORTAL DUODENOPATHY - NO FEATURES OF CELIAC DISEASE SEEN - NO GRANULOMAS, DYSPLASIA OR MALIGNANCY SEEN DIAGNOSIS DUODENUM, ENDOSCOPIC BIOPSY: [facility] - SUPERFICIAL FRAGMENTS OF SMALL BOWEL MUCOSA WITH GASTRIC FOVEOLAR METAPLASIA [facility] Signing Pathologist Direct Phone Line: [phone] CPT Code(s) [address] [facility] [place] CLINICAL HISTORY Procedure: upper endoscopy, biopsy and colonosc opy [facility] Pre and postop diagnosis: anemia [facility] SPECIMEN SOURCE A. Duodenum; biopsy [facility] GROSS DESCRIPTION A. The specimen is received [facility] in formalin labeled with [facility] the patient's name, accession number and "[email or web address]" and consists of one garduno-pink mucosal-covered pieces of tissue measuring 0.3 x 0.2 x 0.1 cm. The specimen is submitted entirely following filtration in a cassette A1. HS/pl MICROSCOPIC DESCRIPTION PERFORMED [facility] Specimen Tissue Performing Organization Address City/[facility] Phone Number [phone] [place] [address] CENTER Lactate dehydrogenase (LDH) (01/16/2020 12:24 PM CDT) LDH 250 (H) 125 - 220 U/L [facility] [place] Specimen Blood Narrative Performed At Research Animal Attendant ID - TUAN Mera [facility] Performing Organization Address [facility]/Zipcode Phone Number [place] [address] [phone] [place] [address] CENTER Vitamin B12 and Folate (01/16/2020 11:25 AM CDT) Vitamin B12 1,107 (H) 213 - 816 pg/mL [facility] [place] [place] Folate 3.40 (L) >=7.00 ng/mL [facility] [place] [place] Specimen Blood Narrative Performed At Research Animal Attendant ID - NTP [facility] Performing Organization Address City/[facility]/Zipcode Phone Number [address] [address] CENTER HIV-1 Antigen with HIV-1/2 Antibody (01/16/2020 11:25 AM CDT) HIV-1 Antigen with HIV 1&2 Nonreactive Nonreactive [facility] Specimen Blood Narrative Performed At Research Animal Attendant ID - TUAN Mera [facility] Performing Organization Address City/[facility] Phone Number [address] [address] CENTER Haptoglobin (01/16/2020 11:25 AM CDT) Haptoglobin <8 (L) 14 - 258 mg/dL [facility] [place] Specimen Blood Narrative Performed At Research Animal Attendant ID - TUAN Mera [facility] Performing Organization Address City/[facility] Phone Number [address] [address] CENTER US abdominal with doppler (01/16/2020 6:30 AM CDT) Specimen Narrative Performed At FINAL REPORT Thumb ULTRASOUND ABDOMEN COMPLETE, ULTRASOUND DUPLEX DOPPLER HISTORY: Cirrhosis, liver transplant shama luation COMPARISON: CT abdomen of 05/02/2017 TECHNIQUE: Real-time ultrasound of the angeles klein was performed. Examination included spectral and color- flow Doppler evaluation of the liver and portal venous system. FINDINGS: The liver demonstrates heterog eneously increased echogenicity and a nodular surface consi stent with a history of cirrhosis.No mass lesions are identi fied. Hepatic length is 12 cm. No gallstones are visualized. The gallbl adder is relatively contracted. The common bile duct is norm al in caliber, measuring 2 mm. The main portal vein is normal in di ameter, measuring 13 mm. Mild splenomegaly, with a splenic length of 1 2 cm. The pancreas was suboptimally visualized due to overlying bowel gas. Mild ascites is present. No pleural effu sions are seen. The kidneys are normal in size, contour, and echogenicity. The right kidney measures 9.6 cm in length and the left kidney measures 10.1 cm in length. Doppler evaluation demonstrated hepatope hao flow throughout the portal venous system with the exception of the left portal vein where there is hepatofugal flow. Peak systolic velocity in the main portal vein was normal, measuring 15 cm/sec. Resistive indices in the hepatic arterie s were at the upper limits of normal to mildly elevated, ranging betwe en 0.7 and 0.8. The hepatic veins are patent. No abnorma lities were identified in the inferior vena cava or abdominal aorta. IMPRESSION: 1. Cirrhosis with splenomegaly and mild ascites. No hepatic mass lesion is visualized. 2. Patent portal venous system. Hepatope ruslan flow in the main portal vein. Signed: Albaro Alvardao MD Report Verified Date/Time:01/16/2020 07:32:01 Reading Location: [address] Reading Room Procedure Note Interface, External Ris In - 01/16/2020 7:34 AM CDT FINAL REPORT ULTRASOUND ABDOMEN COMPLETE, ULTRASOUND DUPLEX DOPPLER HISTORY: Cirrhosis, liver transplant shama luation COMPARISON: CT abdomen of 05/02/2017 TECHNIQUE: Real-time ultrasound of the angeles klein was performed. Examination included spectral and color- flow Doppler evaluation of the liver and portal venous system. FINDINGS: The liver demonstrates heterog eneously increased echogenicity and a nodular surface consi stent with a history of cirrhosis. No mass lesions are identifi ed. Hepatic length is 12 cm. No gallstones are visualized. The gallbl adder is relatively contracted. The common bile duct is norm al in caliber, measuring 2 mm. The main portal vein is normal in di ameter, measuring 13 mm. Mild splenomegaly, with a splenic length of 1 2 cm. The pancreas was suboptimally visualized due to overlying bowel gas. Mild ascites is present. No pleural effu sions are seen. The kidneys are normal in size, contour, and echogenicity. The right kidney measures 9.6 cm in length and the left kidney measures 10.1 cm in length. Doppler evaluation demonstrated hepatope hao flow throughout the portal venous system with the exception of the left portal vein where there is hepatofugal flow. Peak systolic velocity in the main portal vein was normal, measuring 15 cm/sec. Resistive indices in the hepatic arterie s were at the upper limits of normal to mildly elevated, ranging betwe en 0.7 and 0.8. The hepatic veins are patent. No abnorma lities were identified in the inferior vena cava or abdominal aorta. IMPRESSION: 1. Cirrhosis with splenomegaly and mild ascites. No hepatic mass lesion is visualized. 2. Patent portal venous system. Hepatope ruslan flow in the main portal vein. Signed: Albaro Alvarado MD Report Verified Date/Time: 01/16/2020 0 7:32:01 Reading Location: [address] Reading Room Performing Organization Address City/[facility] Phone Number Thumb Drug screen, urine, transplant (01/15/2020 9:52 PM CDT) Specimen Urine Narrative Performed At This result has an attachment that is no t available. Performing Organization Address [facility]code Phone Number [phone] [place] [address] Blood typing, automated - - at seperate draw time from initial type and screen (01/15/2020 6:16 PMCDT) ABO/RH AUTOMATED (BEAKER) A POSITIVE [facility] Specimen Blood Performing Organization Address [facility]/Zipcode Phone Number [facility] [address] [place] [address] CT chest without IV contrast (01/15/2020 5:54 PM CDT) Specimen Narrative Performed At FINAL REPORT Thumb CT of the chest, without contrast Clinical History:shortness of breath , ascites Technique: CT of the chest is performed without intravenous contrast administration. This exam was performed according to our departmental dose optimization program which includes automated exposure control, adjustment of the mA and/or kV according to patient's size and/or use of iterative reconstructive technique. Comparison Film:Chest radiograph ramirez ed January 15, 2020 Discussion: Visualized thyroid gland is normal. Ther e is no supraclavicular, axillary, mediastinal or hilar lymphaden opathy. Heart is normal in size. No pericardial effusion. There is a small hiatal hernia, and periesophageal varices are suspected. There is pulmonary emphysema, most advan mannie at the upper lungs. Minimal scarring or atelectasis is prese nt at the lung bases. No mass or consolidation. No pleural effusion. C entral airways are patent, no bronchiectasis, or bronchial wall thicke duncan. Liver is cirrhotic. There is a large que unt of ascites. Osseous structures demonstrate mild degenerative changes. No suspicious bony lesion is identified. Impression: Pulmonary emphysema. Cirrhosis and large amount of ascites. Small hiatal hernia. Signed: Roger Hampton MD Report Verified Date/Time:01/15/2020 17:57:54 Reading Location: [address] Reading Room Procedure Note Interface, External Ris In - 01/15/2020 6:[address]AL REPORT CT of the chest, without contrast Clinical History: shortness of breath, ascites Technique: CT of the chest is performed without intravenous contrast administration. This exam was performed according to our departmental dose optimization program which includes automated exposure control, adjustment of the mA and/or kV according to patient's size and/or use of iterative reconstructive technique. Comparison Film: Chest radiograph dated January 15, 2020 Discussion: Visualized thyroid gland is normal. Ther e is no supraclavicular, axillary, mediastinal or hilar lymphaden opathy. Heart is normal in size. No pericardial effusion. There is a small hiatal hernia, and periesophageal varices are suspected. There is pulmonary emphysema, most advan mannie at the upper lungs. Minimal scarring or atelectasis is prese nt at the lung bases. No mass or consolidation. No pleural effusion. C entral airways are patent, no bronchiectasis, or bronchial wall thicke duncan. Liver is cirrhotic. There is a large que unt of ascites. Osseous structures demonstrate mild degenerative changes. No suspicious bony lesion is identified. Impression: Pulmonary emphysema. Cirrhosis and large amount of ascites. Small hiatal hernia. Signed: Roger Hampton MD Report Verified Date/Time: 01/15/2020 1 7:57:54 Reading Location: [facility] C0X Ortho [facility] sult Reading Room Performing Organization Address City/[facility]/Zipcode Phone Number GE RIS XR chest 2 views (01/15/2020 4:57 PM CDT) Specimen Narrative Performed At FINAL REPORT GE RIS History: Cirrhosis, liver transplant shama luation Comparison: No comparison chest imaging Findings: There are peripheral interstit ial opacities in the lungs bilaterally, most likely reflecting woods ges of chronic lung disease. No lobar consolidation is visualized. No pleural effusions or pneumothorax. The heart shadow is normal in size. The thoracic aorta is mildly calcified. Degenerative changes are pres ent in the spine. Impression: 1. No definite evidence of acute cardiop ulmonary disease. 2. Findings suggestive of chronic inters titial lung disease. Signed: Albaro Alvarado MD Report Verified Date/Time:01/15/2020 17:16:49 Reading Location: [facility] C013T [facility] Reading Room Procedure Note Interface, External Ris In - 01/15/2020 5:19 PM CDT FINAL REPORT History: Cirrhosis, liver transplant shama luation Comparison: No comparison chest imaging Findings: There are peripheral interstit ial opacities in the lungs bilaterally, most likely reflecting woods ges of chronic lung disease. No lobar consolidation is visualized. No pleural effusions or pneumothorax. The heart shadow is normal in size. The thoracic aorta is mildly calcified. Degenerative changes are pres ent in the spine. Impression: 1. No definite evidence of acute cardiop ulmonary disease. 2. Findings suggestive of chronic inters titial lung disease. Signed: Albaro Alvarado MD Report Verified Date/Time: 01/15/2020 1 7:16:49 Reading Location: [facility] C013T [facility] Reading Room Performing Organization Address City/[facility]/Zipcode Phone Number GE RIS XR mandible min 4 views (01/15/2020 4:39 PM CDT) Specimen Narrative Performed At FINAL REPORT GE RIS MANDIBLE 4 VIEWS HISTORY: Cirrhosis, liver transplant shama luation COMPARISON: No comparison mandibular leila ging FINDINGS: PA, lateral, bilateral oblique, and Town e's views of the mandible were obtained. The only residual teeth present are the central 7 teeth in the center of the mandible. No periapical abscess i s seen in association with these. No dental caries are appreciated. No fracture or bony destruction are visu alized in the mandible. Signed: Albaro Alvarado MD Report Verified Date/Time:01/15/2020 17:22:12 Reading Location: [address] Reading Room Procedure Note Interface, External Ris In - 01/15/2020 5:24 PM CDT FINAL REPORT MANDIBLE 4 VIEWS HISTORY: Cirrhosis, liver transplant shama luation COMPARISON: No comparison mandibular leila ging FINDINGS: PA, lateral, bilateral oblique, and Town e's views of the mandible were obtained. The only residual teeth present are the central 7 teeth in the center of the mandible. No periapical abscess i s seen in association with these. No dental caries are appreciated. No fracture or bony destruction are visu alized in the mandible. Signed: Albaro Alvarado MD Report Verified Date/Time: 01/15/2020 1 7:22:12 Reading Location: [facility] [address] [place] [address] Reading Room Performing Organization Address City/[facility] Phone Number [facility] Mitochondria M2 Antibody (IgG) (01/15/2020 4:17 PM CDT) Mitochondria M2 Ab <20.0 See Note: [facility] Comment: Reference Range: NEGATIVE:< OR = 20.0 EQUIVOCAL: 20.1-24.9 POSITIVE:> OR = 25.0 Specimen Blood Narrative Performed At Performing Lab [facility] [address] [place] [address] I Shashank ADRIAN, PhD, AMINA Performing Organization Address City/[facility] Hospitalcode Phone Number [facility] [place] [address] [facility]ATED [address] [facility] Iron, TIBC, % sat. (without ferritin) (01/15/2020 4:17 PM CDT) Iron 144.0 40.0 - 160.0 ug/dL [facility] TIBC 129 (L) 250 - 450 ug/dL [facility] [place] Iron % Saturation 112 (H) 20 - 55 % [facility] Specimen Blood Narrative Performed At Research Animal Attendant ID - DB [facility] Performing Organization Address City/[facility] Hospitalcome Phone Number [address] [address] CENTER Hepatitis C antibody (01/15/2020 4:17 PM CDT) Hepatitis C Ab Nonreactive Nonreactive [facility] [place] Specimen Blood Narrative Performed At Research Animal Attendant ID - DB [facility] CENTER Performing Organization Address City/[facility] Hospitalcode Phone Number [address] [address] CENTER Cytomegalovirus antibody, IgM (01/15/2020 4:17 PM CDT) CMV IGM Negative Negative, Equivocal [facility] Specimen Blood Narrative Performed At CMV IgM Result Interpretation: [facility] </= 0.8 Al Negative 0.9-1.0 Al Equivocal >/= 1.1 Al Positive Performing Organization Address [facility] Hospitalcode Phone Number [address] [address] C[place] Actin (Smooth Muscle) Antibody, IgG (01/15/2020 4:17 PM CDT) Anti-Smooth Muscle Ab 23 (H) See Note: U [facility] Comment: INCORPORATED Reference Range: <20 NEGATIVE > OR = 20 POSITIVE Antibodies recognizing actin are the main compon ent of smooth muscle antibodies associated with autoimmune liver disease. Actin antibodies are found in approximately 75% of patients with autoimmune hepatitis (AIH) type 1, approximately 65% of patients with autoimmune cholangitis, approximately 30% of patients with primary bilia ry cirrhosis, and approximately 2% of healthy peopl e. High values are closely correlated with AIH type 1. Specimen Blood Narrative Performed At Performing Lab [facility] [address] [place] [address] Mark Encarnacion MD, PhD, AMINA Performing Organization Address City/[facility] Hospitalcode Phone Number [employer] [place] [address] INCOR[address]ATED [address] [facility] Bgypi-5-lqeffxtzskm (01/15/2020 4:17 PM CDT) A-1 Antitrypsin 121.20 90.00 - 200.00 mg/dL [facility] Specimen Blood Narrative Performed At Research Animal Attendant ID - DB [facility] Performing Organization Address [facility] Phone Number [address] [address] CENTER Hepatitis A antibody, IgM (01/15/2020 4:17 PM CDT) Hep A IgM Nonreactive Nonreactive [facility] [place] Specimen Blood Narrative Performed At Research Animal Attendant ID - DB [facility] Performing Organization Address [facility] Phone Number [address] [address] CENTER Carbohydrate antigen 19-9 (CA 19-9) (01/15/2020 4:17 PM CDT) CA 19-9 32 <34 U/mL [facility] [employer] Comment: This test was performed using the Siemens Chemil uminescent method. Values obtained from different assay methods can not be used interchangeably. CA19-9 levels, regardless of value, should not b e interpreted as absolute evidence of the presence or absence of disease. Specimen Blood Narrative Performed At Performing Lab [facility] [employer] [facility] [place] [address] [place] [address] Mark Encarnacion MD, PhD, AMINA Performing Organization Address City/[facility]code Phone Number [employer] [place] [address] INCORPORATED [address] [facility] Ceruloplasmin (01/15/2020 4:17 PM CDT) Ceruloplasmin 21 18 - 53 mg/dL [facility] Specimen Blood Narrative Performed At Performing Lab [facility] *[employer] [facility], [address] [place] [phone] Jorje Jauregui MD, PhD Performing Organization Address [facility] Hospitalcode Phone Number [place] [address] [place]ATED [address] [facility] Zinc (01/15/2020 4:17 PM CDT) Zinc 39 (L) 60 - 130 mcg/dL [facility] Comment: INCORPORATED This test was developed and its analytical perfo rmance characteristics have been determined by [employer]. It has not been cleared or approved by the FDA. This assay has been validated pursuant to [facility] CLIA regulations and is used for clinical purposes. Specimen Blood Narrative Performed At Performing Lab [facility] *[employer] [facility], [address] [place] [phone] Jorje Jauregui MD, PhD Performing Organization Address [facility] Phone Number [place], [place] [address] INC[address]ATED [address] [facility] Alpha fetoprotein (AFP), tumor marker (01/15/2020 4:17 PM CDT)Only the most recent of2 resultswithin the time period is included. Alpha-Fetoprotein <2.0 <10.0 ng/mL [facility] Specimen Blood Narrative Performed At Research Animal Attendant ID - DB [facility] CENTER Performing Organization Address City/[facility]/Zipcode Phone Number [address] [address] CENTER Hepatitis B core antibody, IgM (01/15/2020 4:17 PM CDT) Hep B C IgM Nonreactive Nonreactive [facility] [place] Specimen Blood Narrative Performed At Research Animal Attendant ID - DB [facility] CENTER Performing Organization Address City/State/Zipcode Phone Number [facility] [address] [place] [address] CENTER EBV-VCA antibody, IgM (01/15/2020 4:17 PM CDT) GABRIEL CHING VIRAL CAPSID Negative Negative, Equivocal [facility] Specimen Blood Narrative Performed At Gabriel Ching Viral Capsid Antigen IgM Result [facility] Interpretation: </= 0.8 Al Negative 0.9-1.0 Al Equivocal >/= 1.1 Al Positive Performing Organization Address [facility] Hospitalcode Phone Number [address] [address] [place] EBV-VCA antibody, IgG (01/15/2020 4:17 PM CDT) GABRIEL CHING VIRAL CAPSID Positive (A) Negative, Equivocal [facility] Specimen Blood Narrative Performed At Gabriel Ching Viral Capsid Antigen IgG Result [facility] Interpretation: </= 0.8 Al Negative 0.9-1.0 Al Equivocal >/= 1.1 Al Positive Performing Organization Address [facility] Phone Number [address] [address] [place] Hepatitis B core antibody, total (01/15/2020 4:17 PM CDT) Hep B Core Total Ab Nonreactive Nonreactive [facility] Specimen Blood Narrative Performed At Research Animal Attendant ID - [facility] Performing Organization Address City/[facility]/Zipcode Phone Number [address] [address] CENTER Vitamin D, 25-Hydroxy (01/15/2020 4:17 PM CDT) Vitamin D 25-Hydroxy 6.2 (L) 6.6 - 49.9 ng/mL [facility] Specimen Blood Narrative Performed At Effective 05/07/2017: Reference Range Ch von [facility] New: 6.6-49.9 ng/mL Previous: 13.0-47.8 ng/mL Recommended Vitamin D Target Range: 30.0-40.0 ng/mL Research Animal Attendant ID - DB Performing Organization Address City/[facility]/Zipcode Phone Number [address] [address] CENTER RPR (01/15/2020 4:17 PM CDT) RPR Nonreactive Nonreactive [facility] Specimen Blood Performing Organization Address [facility] Phone Number [address] [address] CENTER Hepatitis B surface antibody (01/15/2020 4:17 PM CDT) Hep B S Ab 25.0 (H) <8.0 mIU/mL [facility] [place] Specimen Blood Narrative Performed At Research Animal Attendant ID - DB [facility] Performing Organization Address [facility] Phone Number [address] [address] CENTER Hepatitis B surface antigen (01/15/2020 4:17 PM CDT) HBsAg Screen Nonreactive Nonreactive [facility] [place] Specimen Blood Narrative Performed At Specimen is considered negative for HBsAg. [facility] Performing Organization Address [facility] Phone Number [address] [address] [place] Cytomegalovirus antibody, IgG (01/15/2020 4:17 PM CDT) CYTOMEGALOVIRUS, IGG Positive (A) Negative, Equivocal [facility] Specimen Blood Narrative Performed At CMV IgG Result Interpretation: [facility] </= 0.8 Al Negative 0.9-1.0 Al Equivocal >/=1.1 AlPositive Performing Organization Address [facility] Phone Number [address] [address] [place] aPTT (01/15/2020 4:17 PM CDT) PTT 36.8 (H) 22.5 - 36.0 seconds [facility] Specimen Blood Performing Organization Address City/[facility]code Phone Number [address] [address] [place] Fibrinogen (01/15/2020 4:17 PM CDT) Fibrinogen 114 (L) 225 - 434 mg/dl [facility] [place] Specimen Blood Performing Organization Address [facility] Phone Number [address] [address] [place] Anti-Nuclear Antibody (REILLY) (01/15/2020 4:17 PM CDT) REILLY Negative Negative [facility] Specimen Blood Narrative Performed At Test performed by IFA method. [facility] Test performed by IFA method. Performing Organization Address [facility] Phone Number [address] [address] [place] T3 (01/15/2020 4:17 PM CDT) T3, Total 51 48 - 159 ng/dL [facility] Specimen Blood Narrative Performed At This result has an attachment that is no t available. Performing Organization Address City/[facility] Phone Number [facility] [address] [place], [place] Transferrin (01/15/2020 4:17 PM CDT) Transferrin 102 (L) 174 - 382 mg/dL [facility] [place] Specimen Blood Narrative Performed At Research Animal Attendant ID - DB [facility] Specimen moderately icteric Performing Organization Address [facility] Phone Number [address] [address] [place] TSH (01/15/2020 4:17 PM CDT) TSH 5.549 (H) 0.350 - 4.940 uIU/mL [facility] Specimen Blood Narrative Performed At Research Animal Attendant ID - DB [facility] Performing Organization Address City/State/Zipcode Phone Number [address] [address] CENTER T4 (01/15/2020 4:17 PM CDT) T4, Total 4.3 (L) 4.9 - 11.7 ug/dL [facility] Specimen Blood Narrative Performed At Research Animal Attendant ID - NTP [facility] Performing Organization Address City/State/Zipcode Phone Number [address] [address] CENTER Hemoglobin A1c (01/15/2020 4:17 PM CDT) Hemoglobin A1C <3.8 (L) 4.3 - 6.1 % [facility] [place] Specimen Blood Performing Organization Address City/[facility]/Zipcode Phone Number [address] [address] CENTER Ferritin (01/15/2020 4:17 PM CDT) Ferritin 489.86 (H) 5.00 - 275.00 ng/mL [facility] Specimen Blood Narrative Performed At Research Animal Attendant ID - NTP [facility] Performing Organization Address City/State/Zipcode Phone Number [address] [address] CENTER Carcinoembryonic Antigen (CEA) (01/15/2020 4:17 PM CDT) CEA, SERUM 7.9 (H) 0.0 - 5.0 ng/mL [facility] [place] Specimen Blood Narrative Performed At Research Animal Attendant ID - DB [facility] Performing Organization Address City/State/Zipcode Phone Number [facility] [address] [place] [address] CENTER Ethanol (01/15/2020 4:17 PM CDT) Ethanol Lvl <10 <=10 mg/dL [facility] [place] Specimen Blood Narrative Performed At Research Animal Attendant ID - DB [facility] Performing Organization Address City/State/Zipcode Phone Number [address] [address] [place] 2D Echo W/Doppler(CW/PW/Color) (01/15/2020 2:45 PM CDT) Ejection Fraction [facility] ECHO HEAR [facility] Specimen Narrative Performed At Transthoracic Echocardiography Report (T TE) [facility] ECHO HEARTLAB [facility] Demographics Patient Name CICI CALDERON Date of Study 01/15/2020 ALYSE [id number] GenderFem shalom Visit Number [id number] RaceUnkn own [id number] m Number [id number] Number Date of Birth1955 Referring Physician Ren Hernandez MD Age64 year(s) [employer] Manager Lisa Bautista [facility] InterpretingJoseolvin Arreguin MD Physician Procedure Type of Study TTE procedure:2DECHO W DOPPLER(CW/PW/COLOR) (Routine) Indications:Liver transplant evaluation. Clinical History COPD;LIVER DISEASE;OBESITY. Contrast Medium: Bubble Study. Height: 64 inches Weight: 87.09 kg (192 lbs) BSA: 1.92 m^2 BMI: 32.96 kg/m^2 HR: 78 bpm BP: 102/49 mmHg Summary IV saline contrast injection was negative for a PFO (patent foramen ovale) at rest and post Valsalva . IV saline contrast with delayed imaging demonstrates intra pulmonic shunting. The left ventricle is chamber size (by PSLAX dimension) is normal (male - LVIDd 4.2-5.8cm) . All of the LV segments contract normally . Estimated LVEF by qualitative assessment is cheryle l (>60%) . Normal diastolic function. Estimated peak systolic PA pressure is 30-35 mmHg . A left pleural effusion is noted. Ascites is present. Signature Findings Left Ventricle The left ventricle is chamber size (by PSLAX di mension) is normal (male - LVIDd 4.2-5.8 cm) . No rmal LV wall thickness. All of the LV se gments co ntract normally . Estimated LVEF by qual itative as sessment is normal (>60%) . Normal diast olic fu nction. Left AtriumLA size is mildly enlarged (35-41 ml/m2) . Right VentricleThe right ventricular chamber size and systolic fu nction are within normal limits. Right Atrium RA size is normal. Atrial SeptumIV saline contrast injection was negative for a PF O (p atent foramen ovale) at rest and post Va lsalva . IV saline contrast with delayed imaging de monstrates intra pulmonic shunting. Aortic Valve Mild AoV cusp thickening. Mitral Valve Mild MV leaflet thickening. Tr lizbeth mitral regurgitation. Tricuspid ValveTV structure is normal. A trace of tricuspid regurgitation. Es timated peak systolic PA pressure is 30- 35 mmHg . Pulmonic Valve Normal PV structure and function by limited views an d Doppler. AortaAortic root size (SInus of Valsalva diameter) i s no rmal . PericardiumNo significant pericardial effusion is visualized. IVC/SVC/PA/PV/PleuralA left pleural effusion is noted. As cites is present. Chambers/Structures Left Atrium LA Dimension: 4.15 cmLA Area: 23.36 cm^2 LA Volume: 72.55 ml LA Vol. Index: 38 ml/m^2 Left Ventricle LVIDd: 4.83 cm LVEDV:1 02.1 ml LVIDs: 2.64 cm LV Septum Diastolic: 0.57 cm LV PW Diastolic: 0.59 cm LV FS: 45.3 % LVOT Diameter: 1.87 cm Aorta Ao Root S of Beatriz.: 2.5 cm Doppler/Quantitative Measurements Aortic Valve Peak Velocity: 1.85 m/sMean Velocity: 1.13 m/s Peak Gradient: 13.75 mmHgMean Gradient: 6.19 mmHg AV Area (continuity): 2.48 cm^2 AV VTI: 36.36 cm AV DVI: 0.91 LVOT Peak Velocity: 1.58 m/s Peak Gradient: 9.98 mmHg Mean Velocity: 0.95 m/s Mean Gradient: 4.37 mmHg LVOT Diameter: 1.87 cmLVOT VTI: 32.91 cm LVOT Area: 2.75 cm^2LVOT SV:90.34 ml LVOT CO: 7.05 l/min LVOT CI: 3.67 l/min/m^2 Procedure Note Interface, External Ris In - 01/15/2020 5:15 PM CDT Transthoracic Echocardiography Report (TTE) Demographics Patient Name CICI CALDERON Date of Study 01/15/2020 ALYSE Gender Female Visit Number [id number] Race Unknown [place] [id number] Number [facility] 1955 [facility] Physician Ren Hernandez MD Age 64 year(s) Sonogra pher Lisa Melhem [facility] Interpr eting Jai Arreguin MD Physici an Procedure Type of Study TTE procedure:2DECHO W DOPPLE R(CW/PW/COLOR) (Routine) Indications:Liver transplant evaluation. Clinical History COPD;LIVER DISEASE;OBESITY. Contrast Medium: Bubble Study. Height: 64 inches Weight: 87.09 kg (192 lbs) BSA: 1.92 m^2 BMI: 32.96 kg/m^2 HR: 78 bpm BP: 102/49 mmHg Summary IV saline contrast injection was negati ve for a PFO (patent foramen ovale) at rest and post Valsalva . IV saline contrast with delayed imaging demonstrates intra pulmonic shunting. The left ventricle is chamber size (by PSLAX dimension) is normal (male - LVIDd 4.2-5.8cm) . All of the LV segmen ts contract normally . Estimated LVEF by qualitative assessment is cheryle l (>60%) . Normal diastolic function. Estimated peak systolic PA pressure is 30-35 mmHg . A left pleural effusion is noted. Ascites is present. Signature Findings Left Ventricle The left ventric le is chamber size (by PSLAX dimension) is no rmal (male - LVIDd 4.2-5.8cm) . Normal LV wall t hickness. All of the LV segments contract normall y . Estimated LVEF by qualitative assessment is no rmal (>60%) . Normal diastolic function. Left Atrium LA size is mildl y enlarged (35-41 ml/m2) . Right Ventricle The right ventri cular chamber size and systolic function are wit hin normal limits. Right Atrium RA size is cheryle l. Atrial Septum IV saline contra st injection was negative for a PFO (patent foramen ovale) at rest and post Valsalva . IV saline contra st with delayed imaging demonstrates int ra pulmonic shunting. Aortic Valve Mild AoV cusp th ickening. Mitral Valve Mild MV leaflet thickening. Trace mitral reg urgitation. Tricuspid Valve TV structure is normal. A trace of tricu spid regurgitation. Estimated peak s ystolic PA pressure is 30-35 mmHg . Pulmonic Valve Normal PV struct ure and function by limited views and Doppler. Aorta Aortic root size (SInus of Valsalva diameter) is normal . Pericardium No significant p ericardial effusion is visualized. IVC/SVC/PA/PV/Pleural A left pleural e ffusion is noted. Ascites is prese nt. Chambers/Structures Left Atrium LA Dimension: 4.15 cm LA Area: 23.36 cm^2 LA Volume: 72.55 ml LA Vol. Index: 38 ml/m^2 Left Ventricle LVIDd: 4.83 cm LVEDV:102.1 ml LVIDs: 2.64 cm LV Septum Diastolic: 0.57 cm LV PW Diastolic: 0.59 cm LV FS: 45.3 % LVOT Diameter: 1.87 cm Aorta Ao Root S of Beatriz.: 2.5 cm Doppler/Quantitative Measurements Aortic Valve Peak Velocity: 1.85 m/s Mean Velocity: 1.13 m/s Peak Gradient: 13.75 mmHg Mean Gradient: 6.19 mmHg AV Area (continuity): 2.48 cm^2 AV VTI: 36.36 cm AV DVI: 0.91 LVOT Peak Velocity: 1.58 m/s Pea k Gradient: 9.98 mmHg Mean Velocity: 0.95 m/s Charo n Gradient: 4.37 mmHg LVOT Diameter: 1.87 cm LVO T VTI: 32.91 cm LVOT Area: 2.75 cm^2 LVO T SV:90.34 ml LVOT CO: 7.05 l/min LVO T CI: 3.67 l/min/m^2 Performing Organization Address City/State/Zipcode Phone Number [facility] Carotid doppler bilateral (01/15/2020 2:41 PM CDT) Ejection Fraction [facility] ECHO HEAR TLAB [facility] Specimen Impressions Performed At Right Impression [facility] 1. The internal, common and external carotid arteries are within normal limits. 2. The vertebral artery flow is antegrade and normal. 4. The subclavian artery is within normal limits where visualized. Left Impression 1. The internal, common and external carotid arteries are within normal limits. 2. The vertebral artery flow is antegrade and normal. 4. The subclavian artery is within normal limits where visualized. Conclusions Summary Carotid duplex scanning and color flow imaging were performed bilaterally. The arteries were well visualized and no areas of stenosis were found bilaterally. Doppler flow velocities were within normal range bilaterally. The vertebral artery flow was antegrade and normal bilaterally. Signature Velocities are measured in cm/s ; Diameters are measured in cm Carotid Right Measurements + +----+----+-----+ +---- + + !Location !PSV !EDV !Angle!%Stenosis 2D!%Stenosis Doppler!Tortuosity ! + +----+----+-----+ +---- + + !Prox CCA !109 !19.8!60 !! ! ! + +----+----+-----+ +---- + + !Dist CCA !98.8!18.9!60 !! ! ! + +----+----+-----+ +---- + + !Prox ICA !91.1!28!60 !! ! ! + +----+----+-----+ +---- + + !Dist ICA !115 !35!60 !! ! ! + +----+----+-----+ +---- + + !Prox ECA !104 !14.7!60 !! ! ! + +----+----+-----+ +---- + + !Vertebral!67.3!18.2!60 !! ! ! + +----+----+-----+ +---- + + !Prox Subclavian!103 !11.2!60 !! ! ! + +----+----+-----+ +---- + + - Additional Measurements:ICAPSV/CCAPSV 1.16.ICAEDV/CCAEDV 1.77. Carotid Left Measurements + +----+----+-----+ +---- + + !Location !PSV !EDV !Angle!%Stenosis 2D!%Stenosis Doppler!Tortuosity ! + +----+----+-----+ +---- + + !Prox CCA !114 !19.6!60 !! ! ! + +----+----+-----+ +---- + + !Dist CCA !103 !20.4!60 !! ! ! + +----+----+-----+ +---- + + !Prox ICA !87!24.3!60 !! ! ! + +----+----+-----+ +---- + + !Dist ICA !98.8!29.8!60 !! ! ! + +----+----+-----+ +---- + + !Prox ECA !84.7!14.1!60 !! ! ! + +----+----+-----+ +---- + + !Vertebral!90.9!23.5!60 !! ! ! + +----+----+-----+ +---- + + !Prox Subclavian!125 !14.1!60 !! ! ! + +----+----+-----+ +---- + + - Additional Measurements:ICAPSV/CCAPSV 0.96.ICAEDV/CCAEDV 1.52. Narrative Performed At LAB - Carotid Duplex Study [facility] Dem[facility] Patient NameShameka CALDERON of Study 01/15/2020 ALYSE 64 Visit [id number] Female of 1955 [facility] Room Number 15[address] Manager Herbert maurice, T Physician Procedure Type of Study: Cerebral: Carotid, CAROTID DOPPLER, CHRIS ATERAL. Indications for Study:Liver transplant e valuation. Patient Status:STAT. Study Location:Portable. Technical Quality:Adequate visualization . Risk Factors History of Disease +---------+----+ + !Diagnosis!Date!Comments ! +---------+----+ + !Other!!COPD, Liver Disease, Obesity ! +---------+----+ + Procedure Note Interface, External Ris In - 01/16/2020 12:34 AM CDT PV LAB - Carotid Duplex Study Demographics Patient Name CICI CALDERON Armirez e of Study 01/15/2020 ALYSE Age 64 Visit Number [id number] Gen margarita Female Accession Number [id number] Ramirez e of 1955 Referring [facility] Number [id number] Manager Herbert Jacobs [facility] Chelsea Resendez, Anna foss MD Procedure Type of Study: Cerebral: Carotid, CAROTID DOPPLER, CHRIS ATERAL. Indications for Study:Liver transplant e valuation. Patient Status:STAT. Study Location:Portable. Technical Quality:Adequate visualization . Risk Factors History of Disease +---------+----+ + !Diagnosis!Date!Comments ! +---------+----+ + !Other ! !COPD, Liver Disease, Obe sity ! +---------+----+ + Impressions Right Impression 1. The internal, common and external car otid arteries are within normal limits. 2. The vertebral artery flow is antegrad e and normal. 4. The subclavian artery is within cheryle l limits where visualized. Left Impression 1. The internal, common and external car otid arteries are within normal limits. 2. The vertebral artery flow is antegrad e and normal. 4. The subclavian artery is within cheryle l limits where visualized. Conclusions Summary Carotid duplex scanning and color flow imaging were performed bilaterally. The arteries were well visualized and n o areas of stenosis were found bilaterally. Doppler flow velocities we re within normal range bilaterally. The vertebral artery flow was antegrade and normal bilaterally. Signature Velocities are measured in cm/s ; Diamet ers are measured in cm Carotid Right Measurements + +----+----+-----+------- -----+ + + !Location !PSV !EDV !Angle!%Stenos is 2D!%Stenosis Doppler!Tortuosity ! + +----+----+-----+------- -----+ + + !Prox CCA !109 !19.8!60 ! ! ! ! + +----+----+-----+------- -----+ + + !Dist CCA !98.8!18.9!60 ! ! ! ! + +----+----+-----+------- -----+ + + !Prox ICA !91.1!28 !60 ! ! ! ! + +----+----+-----+------- -----+ + + !Dist ICA !115 !35 !60 ! ! ! ! + +----+----+-----+------- -----+ + + !Prox ECA !104 !14.7!60 ! ! ! ! + +----+----+-----+------- -----+ + + !Vertebral !67.3!18.2!60 ! ! ! ! + +----+----+-----+------- -----+ + + !Prox Subclavian!103 !11.2!60 ! ! ! ! + +----+----+-----+------- -----+ + + - Additional Measurements:ICAPSV/CCAPS V 1.16.ICAEDV/CCAEDV 1.77. Carotid Left Measurements + +----+----+-----+------- -----+ + + !Location !PSV !EDV !Angle!%Stenos is 2D!%Stenosis Doppler!Tortuosity ! + +----+----+-----+------- -----+ + + !Prox CCA !114 !19.6!60 ! ! ! ! + +----+----+-----+------- -----+ + + !Dist CCA !103 !20.4!60 ! ! ! ! + +----+----+-----+------- -----+ + + !Prox ICA !87 !24.3!60 ! ! ! ! + +----+----+-----+------- -----+ + + !Dist ICA !98.8!29.8!60 ! ! ! ! + +----+----+-----+------- -----+ + + !Prox ECA !84.7!14.1!60 ! ! ! ! + +----+----+-----+------- -----+ + + !Vertebral !90.9!23.5!60 ! ! ! ! + +----+----+-----+------- -----+ + + !Prox Subclavian!125 !14.1!60 ! ! ! ! + +----+----+-----+------- -----+ + + - Additional Measurements:ICAPSV/CCAPS V 0.96.ICAEDV/CCAEDV 1.52. Performing Organization Address City/[facility] Phone Number [facility]ART[facility] MKCKESSON CPACS Hepatitis panel, acute (01/15/2020 8:32 AM CDT) Hep A IgM Nonreactive Nonreactive [facility] [place] Hep B C IgM Nonreactive Nonreactive [facility] Hepatitis C Ab Nonreactive Nonreactive [facility] HBsAg Screen Nonreactive Nonreactive [facility] Specimen Blood Narrative Performed At Research Animal Attendant ID - NTP [facility] Performing Organization Address [facility] Phone Number [address] [address] C[place] Ammonia (01/15/2020 8:32 AM CDT) Ammonia 19 18 - 72 mol/L [facility] [place] Specimen Blood Narrative Performed At Research Animal Attendant ID - NTP [facility] Performing Organization Address [facility] Phone Number [address] [address] C[place] Uric acid (01/15/2020 3:56 AM CDT) Uric Acid 15.7 (H) 2.6 - 7.2 mg/dL [facility] [place] Specimen Blood Narrative Performed At Research Animal Attendant ID - NTP [facility] Specimen moderately icteric Performing Organization Address City/[facility] Phone Number [facility] [address] [place] [address] [place] Gamma Glutamyl Transferase (GGT) (01/15/2020 3:56 AM CDT) GGT 15 9 - 64 U/L [facility] [place] Specimen Blood Narrative Performed At Research Animal Attendant ID - NTP [facility] Specimen moderately icteric Performing Organization Address [facility] Phone Number [address] [address] [place] Lipid panel (01/15/2020 3:56 AM CDT) Triglycerides 86 mg/dL [facility] [place] Cholesterol 101 mg/dL [facility] [place] HDL 12 mg/dL [facility] [place] LDL Calculated 72 mg/dL [facility] [place] Specimen Blood Narrative Performed At Triglyceride Reference Range: [facility] Low Risk <150 [id number] High Risk 200-499 Very High Risk>=500 Cholesterol Reference Range: Low Risk <200 [id number] High Risk>240 HDL Cholesterol Reference Range: Low Risk >=60 High Risk <40 LDL Cholesterol Reference Range: Optimal<100 Near [id number] [id number] Nrba143-216 Very High >=190 Research Animal Attendant ID - NTP Specimen moderately icteric Performing Organization Address City/[facility] Phone Number [address] [address] [place] SARS-CoV2/RT-PCR (Asymptomatic ONLY) (01/14/2020 7:28 PM CDT) SARS-COV2/RT-PCR Not Detected Not Detected, Negative [facility] SARS-COV-2 PERFORMING LAB [facility] Specimen Other Narrative Performed At Negative results do not preclude SARS-CoV-2 [facility] infection and should not be used as the sole basis for patient management decisions. Negative results must be combined with clinical observations, patient history, and epidemiological information. A false negative result may occur if a specimen is improperly collected, transported or handled. The limit of detection for this assay is 250 copies/mL. This SARS CoV-2 test is a rapid, real-time RT-PCR test intended for the qualitative detection of nucleic acid from SARS-CoV-2 in a nasopharyngeal swab specimen collected from individuals suspected of COVID-19 by their healthcare provider. This test has not been Food and Drug Administration (FDA) cleared or approved and has been authorized by FDA under an Emergency Use Authorization (EUA). This EUA will be effective until the declaration that circumstances exist justifying the authorization of the emergency use of in vitro diagnostic tests for detection and/or diagnosis of COVID-19 is terminated under Section 564(b)(2) of the Act or the EUA is revoked under Section 564(g) of the Act. Fact Sheet for Healthcare Providers: https://www.[employer]/Documents/Xpert%20Xpre ss%20SARS%20CoV-2/Fact%20Sheets/302-3802%20SAR S-COV-2%20HEALTHCARE%20PROVIDERS%20FACT%20SHEE T.pdf Fact Sheet for Healthcare Patients: https://www.[employer]/Documents/Xpert%20Xpre ss%20SARS%20CoV-2/Fact%20Sheets/302-3801%20SAR S-COV-2%20PATIENT%20FACT%20SHEET.pdf Performing Laboratory: [address] [place] [address] Performing Organization Address City/State/Zipcode Phone Number [address] [address] CENTER after 02/17/2019 Insurance Payer Benefit Plan / Subscriber ID Type Phone Address Group [employer] - MEDICARE AETNA MEDICARE HMO xxxxxxxx [id number] [place] [address] CDC REVIEW CDC REVIEW xxxxx[place] [address] [place] [place] [address] Advance Directives For more information, please contact:[place] [id number] [place], [place] [phone] Code Status Date Activated Date Inactivated Comments Full Code 01/14/2020 8:09 PM 01/26/2020 8:41 PM This code status was determined by: Patient
--- OUTSIDE RECORDS SUMMARY | 2020-02-18 09:04 | XMS REPORT | Continuity of Care Document ---
:1955 Author Organization [facility] t Address [address] [place] [address] [address] [place] [address] Care Team Providers Name Role Phone Nahun Leonard MD Primary Care Physician Alfonso Attending Clinician Unavailable Mayank ESPINOSA R Attending Clinician Unavailable Alex Riley MD Attending Clinician Nhi Cross MD Attending Clinician ALEX RILEY Attending Clinician Unavailable Angel Luis ESPINOSA Attending Clinician Unavailable Genesis Acevedo MA Attending Clinician Unavailable Yvette Morales Attending Clinician Ildefonso Saini MD Attending Clinician Herber Attending Clinician Unavailable Conrad Arias Attending Clinician Unavailable RADHA HUNTER Attending Clinician Unavailable Radha Hunter MD Attending Clinician Juana ADRIAN Attending Clinician Miguel Angel ADRIAN Attending Clinician Ping Kinney Attending Clinician Tonia Stone MD Attending Clinician Law R Attending Clinician Unavailable Marie MARCUS Attending Clinician Unavailable Nallely ADRIAN Attending Clinician Zienab Gooden Attending Clinician Vinicius ETIENNE Bull Attending Clinician Doris ADRIAN Attending Clinician Aaliyah ESPINOSA, P Attending Clinician Unavailable PRABHA FORTUNE Attending Clinician Unavailable Prabha Fortune MD Attending Clinician Yaneli ESPINOSA Attending Clinician Unavailable Holli Borden MD Attending Clinician Joshua ADRIAN Attending Clinician Niraj MARCUS Attending Clinician Unavailable Markus ESPINOSA Attending Clinician Unavailable Sudhakar Maki MA Attending Clinician Unavailable TONIA STONE Admitting Clinician Unavailable Joshua ADRIAN Admitting Clinician Payers Payer Name Policy Type Policy Number Effective Date Expiration Date S kiarra AETNA - MEDICARE MGD [id number] [facility] CAREAETNA MEDICARE kes - O POS Medical [id number] [facility] [id number] [address] [facility] REVIEWCDC xxxxxxxx [facility] REVIEWxxxxxxxxPO [facility] [id number] Center Problems Condition Condition Condition Status Onset Resolution Last Treating Co mments Source Name Details Category Date Date Treatment Clinician Date Acute Acute Disease Active [facility] liver liver 6-19 [facility] - failure failure 00:00: Medical 00 [place] Elevated Elevated Disease Active [facility] serum serum 616 [facility] - creatinine creatinine 00:00: Me dical 00 Center Other Other Disease Active [facility] ascites ascites 6-16 [facility] - 00:00: Medical 00 Center Cirrhosis Cirrhosis Disease Active 2015-[address] of liver of liver 2-05 Assessmen Garry es - without without 00:00: t & [...] provided. Portal Portal Disease Active 2015-[address] hypertensi hypertensi 09-01 Assessmen [facility] - on on 00:00: t & Plan: Medical 00 Manifeste Center d by ky ngo on imaging. She does not have varices, ascites or HE. 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 t & Plan: Medical 00 EGD in Center March 2016 was negative for varices. Obesity Obesity Disease Active 2015-[address] (BMI (BMI 09-01 [facility] - 35.0-39.9 35.0-39.9 00:00: t & Plan: [...] ions. Constipati Constipati Disease Active 2015-[address] [facility] 09[facility] - [facility]: t & Plan: Medical 00 Recommend Center miralax Screening Screening Disease Active 2015-[address] [facility] [address] for for 09-01 [facility] - malignant malignant 00:00: t & [...] [facility] Jaundice Jaundice Problem [facility] Alcoholic Alcoholic Problem Active [facility] cirrhosis cirrhosis Luke s - of liver of liver Memori a with with l ascites ascites Outpati ent Clinics Hospital Hospital Problem Active [facility] t discharge discharge Luke s - follow-up follow-up Slade lorenzo l Outpati ent Clinics Adrenal Adrenal Problem Active [facility] mass mass [facility] - greater greater Memoria than 4 cm than 4 cm l in in Outpati diameter diameter ent Clinics Allergies, Adverse Reactions, Alerts Allergy Allergy Status Severity Reaction(s) Onset Inactive Treating Comm ents Source Name Type Date Date Clinician Erythrom Drug Active Hives 2015-[address] [facility] ycin Allergy 09-01 [facility] - 00:00: Medical 00 Center Levoflox Drug Active Other (See 2015-[address] acin Intolera Comments) 09-01 and [facility] - nce 00:00: diarrhea Medical 00 Center Sulfa Drug Active Rash 2015-[address] [facility] (Sulfona Allergy 2 [facility] - mide 00:00: Medical Antibiot 00 Center ics) Tetracyc Drug Active Hives 2015-[address] [facility] lines Allergy - [facility] - 00:00: Medical 00 Center Tetracyc Adverse Active hives [facility] line HCl Reaction [facility] Levaquin Adverse Active vomiting/jocy C [facility] Reaction rrhea [facility] ent Clinics Erythrom Adverse Active vomiting/jocy [facility] ycin Reaction rrhea [facility] Family History Family Member Diagnosis Comments Start Date Stop Date Source Natural brother Diabetes [facility] Natural brother Hypertension [facility] Natural brother Arthritis [facility] Natural brother COPD [facility] Natural father Diabetes [facility] Natural father Heart disease [facility] Natural mother Diabetes [facility] Natural mother Heart disease [facility] Natural sister Cancer [facility] Social History Social Habit Start Date Stop Date Quantity Comments Source Sex Assigned [facility] Alcohol Comment 2016-07-01 2016-07-01 social last drink I [facility] - 00:00:00 00:00:00 06/15/[address] [facility] Smoking Status Start Date Stop Date Source Former smoker 2020-02-15 00:00:00 2020-02-15 00:00:00 [facility] Medications Ordered Filled Start Stop Current Ordering Indication Dosage Frequency Signature Comments Components Source Medication Medication Date Date Medication? Clinician (SIG) Name Name ranitidine 2019- No Screening 150mg Take [address] [facility] (ZANTAC) 02-14 for mg by [facility] - 150 MG 11:22: 00:00 malignant mouth as M edical capsule 31 :00 neoplasm needed Center (every 8 hours- as antihistam ine by PCP). rifAXIMin No Hepatic 550mg Q.5D Take [address] 550 mg Tab 02-02 encephalopa tablet [facility] - 00:00: 00:00 thy (HCC) (550 mg Medi steven 00 :00 total) by Center mouth 2 (two) times daily. ergocalcife 2020- Yes [id number] Q7D Take [address] rol 01-31 capsule [facility] - (ERGOCALCIF 00:00: 23:59 (50,000 Me dical MARIN) 1,250 00 :00 Units Center mcg (50,000 total) by unit) mouth once capsule a week. pantoprazol 2019-0 Yes 40mg QD Take [address] e 01-26 tablet (40 [facility] - (PROTONIX) 00:00: mg total) Me dical 40 MG 00 by mouth Center tablet daily. folic acid 2019-2020- Yes 1mg QD Take [address] (FOLVITE) 1 01-26- tablet (1 Fe kes - MG tablet 00:00: 23:59 mg total) Me dical 00 :00 by mouth Center daily. furosemide 2019-0 2020- No 40mg Q.5D Take [address] (LASIX) 20 01-25 by mouth 2 Fe kes - MG tablet 16:18: 00:00 (two) Medica l 23 :00 times Center daily . spironolact 2020-0 2020- No 25mg QD Take [address] one 01-25 by mouth [facility]ukes - (ALDACTONE) 16:18: 00:00 daily. Med ical 25 MG 23 :00 Center tablet calcitrioL 2020-0 2020- No .5ug QD Take 0.[address] (ROCALTROL) 01-25 mcg by [facility]ukes - 0.5 MCG 16:16: 00:00 mouth Medical capsule 03 :00 daily. Center calcitrioL 2020-0 Yes .5ug QD Take 1 [facility] t (ROCALTROL) 01-25 capsule [facility]ukes - 0.5 MCG 00:00: (0.5 mcg Medica l capsule 00 total) by Center mouth daily. rifAXIMin 2020-0 Yes 550mg Q.5D Take 1 [facility] t 550 mg Tab 01-25 tablet [facility]ukes - 00:00: (550 mg Medical 00 total) by Center mouth 2 (two) times daily. magnesium 2020-0 Yes 400mg QD Take 1 [facility] t oxide 01-25 tablet [facility] - (MAG-OX) 00:00: (400 mg Medica l 400 mg 00 total) by Center (241.3 mg mouth magnesium) daily. tablet lactulose Yes 20g Q.[id number] Take [address] (CHRONULAC) 01-25 [id number] mLs (20 g [facility]ukes - 20 gram/30 00:00: 3D total) by Wi dical mL solution 00 mouth 3 Cente r (three) times daily. midodrine 2020- Yes 2.5mg Q.[id number] Take [address] (PROAMATINE 01-25 [id number] tablet [facility]ukes - ) 2.5 MG 00:00: 23:59 3D (2.5 mg Medic al tablet 00 :00 total) by Center mouth 3 (three) times daily for 30 days. traMADoL 2019- No 50mg Take [address] (ULTRAM) 50 01-25 tablet (50 L ukes - mg tablet 00:00: 23:59 mg total) Me dical 00 :00 by mouth Center every 6 (six) hours as needed for up to 10 days. Max Daily Amount: 200 mg Albuterol Albuterol Yes Mitzy [address] Sulfate HFA Sulfate HFA 4-09 [place] needed [facility] - 00:00: Memoria 00 l [facility] ent [facility] Cimetidine Cimetidine Yes Mitzy [address] [place] as needed [facility] Calcitriol Calcitriol Yes Mitzy [address] [place] [facility] Lactulose Lactulose Yes Mitzy [address] [place] [facility] Vital Signs Vital Name Observation Time Observation Value Comments Source Systolic blood 2020-02-15 10:30:00 131 mm[Hg] [facility] Diastolic blood 2020-02-15 10:30:00 78 mm[Hg] [facility] S t [facility] Heart rate 2020-02-15 10:30:00 98 /min [facility] Body temperature 2020-02-15 10:30:00 36.22 Shaneka [facility] Respiratory rate 2020-02-15 10:30:00 18 /min [facility] Body height 2020-02-15 10:30:00 162.6 cm [facility] Body weight Measured 2020-02-15 10:30:00 90.901 kg [facility] BMI 2020-02-15 10:30:00 34.40 kg/m2 [facility] Oxygen saturation in 2020-02-15 10:30:00 95 /min [facility] Arterial blood by Medical Ce ntsoren Pulse oximetry Procedures Procedure Date / Time Performing Clinician Source Performed MAGNESIUM 2020-02-15 12:29:00 Kristofer Cross [facility] BILIRUBIN, DIRECT 2020-02-15 12:29:00 AmericaKristofer theodore [facility] COMPREHENSIVE [facility] 2020-02-15 12:29:00 AmericaKristofer theodore [facility] PROTHROMBIN TIME/INR 2020-02-15 12:29:00 AmericaKristofer theodore [facility] CBC W/PLT COUNT & AUTO 2020-02-15 12:29:00 AmericaKristofer theodore [facility] PROTHROMBIN TIME/INR 2020-02-08 10:23:00 AmericaKristofer theodore [facility] 2020-02-08 10:23:00 AmericaKristofer theodore [facility] CBC W/PLT COUNT & AUTO 2020-02-08 10:23:00 AmericaKristofer theodore [facility] BILIRUBIN, DIRECT 2020-02-08 10:23:00 AmericaKristofer theodore [facility] PLATELET ESTIMATION 2020-02-08 10:23:00 AmericaKristofer theodore [facility] PROTHROMBIN TIME/INR 2020-02-01 09:25:00 Kristofer Cross [facility] COMPREHENSIVE [facility] 2020-02-01 09:25:00 AmericaKristofer theodore [facility] CBC W/PLT COUNT & AUTO 2020-02-01 09:25:00 AmericaKristofer theodore [facility] BILIRUBIN, DIRECT 2020-02-01 09:25:00 AmericaKristofer theodore [facility] RHYTHM STRIP - SCAN 2020-01-27 10:00:12 [facility] CARDIAC CATH REPORT - SCAN 2020-01-27 10:00:07 [facility] TRANSFUSE LEUKO-REDUCED 2020-01-26 22:41:07 Kaylin Michelle [facility] PLATELETS [facility] METANEPHRINES 2020-01-26 14:51:00 SantiBlanca montalvo [facility] Curtis [facility] HEPATIC FUNCTION PANEL 2020-01-26 03:50:00 [facility] PROTHROMBIN TIME/INR 2020-01-26 03:50:00 [facility] CALCIUM, IONIZED 2020-01-26 03:50:00 [facility] COMPREHENSIVE METABOLIC 2020-01-26 03:50:00 [facility] PHOSPHORUS 2020-01-26 03:50:00 [facility] MAGNESIUM 2020-01-26 03:50:00 [facility] CBC W/PLT COUNT & AUTO 2020-01-26 03:50:00 Florian Kinney [facility] HEPATIC FUNCTION PANEL 2020-01-25 03:47:00 [facility] PROTHROMBIN TIME/INR 2020-01-25 03:47:00 [facility] BASIC METABOLIC PANEL (7) 2020-01-25 03:47:00 [facility] MAGNESIUM 2020-01-25 03:47:00 Juana [facility] CBC W/PLT COUNT & AUTO 2020-01-25 03:47:00 Florian Kinney [facility] (CELLAVISION MANUAL DIFF) 2020-01-25 03:47:00 Florian Kinney [facility] TRANSFUSION SERVICE REPORT 2020-01-24 18:00:13 [facility] PULMONARY FUNCTION - SCAN 2020-01-24 13:10:09 [facility] SPIROMETRY 2020-01-24 10:41:00 [facility] (SINGLE BREATH 2020-01-24 10:41:00 [facility] - DIFFUSION) [facility] LUNG VOLUMES 2020-01-24 10:41:00 [facility] 6 MINUTE WALK(FOR LUNG 2020-01-24 10:20:00 [facility] - TRANSPLANT ONLY) [facility] HEPATIC FUNCTION PANEL 2020-01-24 03:57:00 [facility] PROTHROMBIN TIME/INR 2020-01-24 03:57:00 [facility] CALCIUM, IONIZED 2020-01-24 03:57:00 Kermit Nicole [facility] PHOSPHORUS 2020-01-24 03:57:00 Kermit Nicole [facility] BASIC METABOLIC PANEL (7) 2020-01-24 03:57:00 Leena Arias [facility] MAGNESIUM 2020-01-24 03:57:00 Leena Arias [facility] CBC W/PLT COUNT & AUTO 2020-01-24 03:57:00 [facility] PREPARE LEUKO-REDUCED RBC 2020-01-23 23:54:00 Vitor Orozco [facility] TRANSFUSION SERVICE REPORT 2020-01-23 18:00:37 ProviderBozena [facility] - - SCAN Scanning [facility] HEPATIC FUNCTION PANEL 2020-01-23 04:32:00 [place] [facility] PROTHROMBIN TIME/INR 2020-01-23 04:32:[address] [place] [facility] B-TYPE NATRIURETIC FACTOR 2020-01-23 04:32:00 Kermit Nicole [facility] (BNP) [facility] CALCIUM, IONIZED 2020-01-23 04:32:00 Kermit Nicole [facility] PHOSPHORUS 2020-01-23 04:32:00 Kermit Nicole [facility] BASIC METABOLIC PANEL (7) 2020-01-23 04:32:00 Arias, Leena [facility] MAGNESIUM 2020-01-23 04:32:00 Arias [facility] CBC W/PLT COUNT & AUTO 2020-01-23 04:32:00 [facility] [facility] (CELLAVISION MANUAL DIFF) 2020-01-23 04:32:00 [facility] PREPARE LEUKO-REDUCED 2020-01-22 23:54:00 Miguel AngelKaylin [facility] PLATELETS [facility] TRANSFUSION SERVICE REPORT 2020-01-22 18:01:00 Provider, [facility] - SCAN [facility] TRANSFUSE LEUKO-REDUCED RED 2020-01-22 14:30:53 Vitor Orozco [facility] BLOOD CELLS [facility] CORTISOL 2020-01-22 08:23:00 Christine Carlisle [facility] CALCIUM, IONIZED 2020-01-22 04:35:00 Russ Ha [facility] HEPATIC FUNCTION PANEL 2020-01-22 04:35:00 Galdino [facility] BASIC METABOLIC PANEL (7) 2020-01-22 04:35:00 [facility] MAGNESIUM 2020-01-22 04:35:00 [facility] CBC W/PLT COUNT & AUTO 2020-01-22 04:35:00 [facility] [facility] (CELLAVISION MANUAL DIFF) 2020-01-22 04:35:00 [facility] PROTHROMBIN TIME/INR 2020-01-22 04:34:[address] [facility] DIRECT [facility] (KRISTI)/DIRECT 2020-01-22 04:34:00 Gregory, [facility] ABORH, MANUAL 2020-01-22 04:34:00 Gregory, [facility] TRANSFUSION SERVICE REPORT 2020-01-21 18:00:48 Provider, Default [facility] - - SCAN [facility] BODY FLUID CULTURE + GRAM 2020-01-21 16:54:00 Miguel Angel, Kaylin [facility] BODY FLUID CELL COUNT WITH 2020-01-21 16:54:00 Amn Miguel Angela [facility] US PARACENTESIS 2020-01-21 16:40:[address] [place] [facility] MISCELLANEOUS LAB ORDER 2020-01-21 09:31:00 Orestes [facility] HEPATIC FUNCTION PANEL 2020-01-21 09:31:00 [place] [facility] PROTHROMBIN TIME/INR 2020-01-21 09:31:[address] [place] [facility] COMPREHENSIVE METABOLIC 2020-01-21 09:31:00 [facility] 2020-01-21 09:31:00 [facility] MAGNESIUM 2020-01-21 09:31:00 Leena Arias [facility] CORTISOL 2020-01-21 09:31:00 [facility] RETICULOCYTE COUNT 2020-01-21 09:31:[address] [facility] PERIPHERAL BLOOD SMEAR - 2020-01-21 09:31:00 Kaylin Michelle [facility] CBC W/PLT COUNT & AUTO 2020-01-21 09:31:00 Russ Ha [facility] XR CHEST 1 VIEW 2020-01-21 09:10:00 Russ Ha [facility]/BEDSIDE [facility] METANEPHRINES, 24 HOUR 2020-01-20 22:51:00 [place] [facility] URINE [facility] CATECHOLAMINES, 2020-01-20 22:51:00 [place] [facility] FRACTIONATED, 24HR URINE Medical Center TYPE AND SCREEN, AUTOMATED 2020-01-20 20:39:00 Amn Miguel Angela Samaria [facility] XR CHEST 1 VIEW 2020-01-20 20:28:00 [place] [facility] PORTABLE/BEDSIDE [facility] TRANSFUSION SERVICE REPORT 2020-01-20 18:01:30 ProviderBozena [facility] - - SCAN Scanning [facility] MR ABDOMEN WITHOUT IV 2020-01-20 17:54:00 [facility] HEPATIC FUNCTION PANEL 2020-01-20 04:10:00 [facility] PROTHROMBIN TIME/INR 2020-01-20 04:10:00 [facility] CALCIUM, IONIZED 2020-01-20 04:10:00 [facility] COMPREHENSIVE METABOLIC 2020-01-20 04:10:00 [facility] PHOSPHORUS 2020-01-20 04:10:00 [facility] MAGNESIUM 2020-01-20 04:10:00 Leena Arias [facility] CBC W/PLT COUNT & AUTO 2020-01-20 04:10:00 [facility] (CELLAVISION MANUAL DIFF) 2020-01-20 04:10:00 [facility] PREPARE LEUKO-REDUCED RBC 2020-01-19 23:54:00 Miguel Angel, Kaylin [facility] URINALYSIS W/ MICROSCOPIC 2020-01-19 23:19:00 [facility] SODIUM, RANDOM URINE 2020-01-19 23:19:00 [facility] BLOOD CULTURE 2020-01-19 21:45:00 [facility] BLOOD CULTURE 2020-01-19 21:44:00 [facility] [id number] 2020-01-19 21:43:00 Kristofer Cross [facility] TRANSFUSION SERVICE REPORT 2020-01-19 18:01:08 Moses [facility] BLOOD GAS, ARTERIAL 2020-01-19 15:44:00 Kristofer Cross [facility] CRYPTOCOCCAL ANTIGEN 2020-01-19 15:04:00 Kristofer Cross [facility] MUMPS ANTIBODY, IGG 2020-01-19 15:04:00 Kristofer Cross [facility] RUBELLA ANTIBODY, IGG 2020-01-19 15:04:00 Kristofer Cross [facility] RUBEOLA ANTIBODY IGG 2020-01-19 15:04:00 Kristofer Cross [facility] VARICELLA ZOSTER ANTIBODY, 2020-01-19 15:04:00 Kristofer Cross [facility] R & L CATH / CORONARY 2020-01-19 13:47:00 Brian Browning [facility] ANGIOS (+/- LV) [facility] PROTHROMBIN TIME/INR 2020-01-19 11:00:[address] [place] [facility] US BREAST BILATERAL 2020-01-19 09:10:00 Kristofer Cross [facility] HEPATIC FUNCTION PANEL 2020-01-19 04:11:00 [facility] CALCIUM, IONIZED 2020-01-19 04:11:00 [facility] COMPREHENSIVE METABOLIC 2020-01-19 04:11:00 [facility] PHOSPHORUS 2020-01-19 04:11:00 [facility] B-TYPE NATRIURETIC FACTOR 2020-01-19 04:11:00 [facility] ALDOSTERONE 2020-01-19 04:11:[address] [facility] RENIN, PLASMA 2020-01-19 04:11:[address] [facility] METANEPHRINES 2020-01-19 04:11:[address] [facility] MAGNESIUM 2020-01-19 04:11:00 Leena Arias [facility] CBC W/PLT COUNT & AUTO 2020-01-19 04:11:00 [facility]BD[facility] WITHOUT IV 2020-01-19 00:40:00 [place] [facility] CONTRAST [facility] US RENAL COMPLETE 2020-01-19 00:20:00 Galdino, [place] [facility] PREPARE LEUKO-REDUCED 2020-01-18 23:54:00 Juana [facility] PLATELETS [facility] URINALYSIS W/ MICROSCOPIC 2020-01-18 20:49:00 [facility] SODIUM, RANDOM URINE 2020-01-18 20:49:00 [facility] PROTEIN, RANDOM URINE 2020-01-18 20:49:00 [facility] CREATININE, RANDOM URINE 2020-01-18 20:49:00 [facility] EOSINOPHIL SMEAR, URINE 2020-01-18 20:49:00 [facility] TRANSFUSION SERVICE REPORT 2020-01-18 18:31:51 Provider [facility] - - SCAN Scanning [facility] TRANSFUSE LEUKO-REDUCED RED 2020-01-18 13:21:26 Miguel Angel [facility] BLOOD CELLS [facility] NM MYOCARDIAL PERFUSION 2020-01-18 09:20:00 Brian Browning [facility] - PET/CT (REST & STRESS) Medical C enter TREADMILL 2020-01-18 08:57:35 Unknown, Hl7 [facility](NON-NUCLEAR Medical Ce nter TREADMILL) ECG 12-LEAD 2020-01-18 08:46:42 Unknown, Hl7 [facility] BASIC METABOLIC PANEL (7) 2020-01-18 06:10:00 [facility] MAGNESIUM 2020-01-18 06:10:00 [facility] T SPOT TB 2020-01-18 06:10:00 Miguel Angel [facility] HEPATIC FUNCTION PANEL 2020-01-18 06:10:00 [facility] CBC W/PLT COUNT & AUTO 2020-01-18 06:10:00 Juana [facility] DIFFERENTIAL [facility] (CELLAVISION MANUAL DIFF) 2020-01-18 06:10:00 [facility] ECG 12-LEAD 2020-01-17 11:05:03 Brian Browning [facility] REPORT OF PROCEDURE - 2020-01-17 09:11:[address] [facility] REPORT OF PROCEDURE - 2020-01-17 08:39:[address] [facility] TISSUE EXAM 2020-01-17 08:15:00 [facility] TRANSFUSE LEUKO-REDUCED 2020-01-17 08:04:58 Juana [facility] UPPER ENDOSCOPY,BIOPSY 2020-01-17 08:00:00 Doris [facility] COLONOSCOPY 2020-01-17 08:00:00 George, [facility] PROTHROMBIN TIME/INR 2020-01-17 03:56:00 Mary Roper [facility] BASIC METABOLIC PANEL (7) 2020-01-17 03:56:00 [facility] MAGNESIUM 2020-01-17 03:56:00 [facility] CBC W/PLT COUNT & AUTO 2020-01-17 03:56:00 [facility] [facility] (CELLAVISION MANUAL DIFF) 2020-01-17 03:56:00 [facility] TRANSFUSION SERVICE REPORT 2020-01-16 18:00:27 Moses, Bozena [facility] - - [facility] BLOOD CULTURE 2020-01-16 12:25:00 Shady Gonzáles [facility] LACTATE DEHYDROGENASE (LDH) 2020-01-16 12:24:00 Juan [facility] RETICULOCYTE COUNT 2020-01-16 12:23:00 Juan Minor [facility] BLOOD CULTURE 2020-01-16 11:25:00 [facility]TIGEN WITH HIV-1/2 2020-01-16 11:25:00 Shayd Gonzáles [facility] VITAMIN B12 AND FOLATE 2020-01-16 11:25:00 Juan [facility] HAPTOGLOBIN 2020-01-16 11:25:00 Juan Minor [facility] US ABDOMINAL WITH DOPPLER 2020-01-16 06:30:00 Shady Gonzáles [facility] PROTHROMBIN TIME/INR 2020-01-16 03:38:[address] [facility] HEPATIC FUNCTION PANEL 2020-01-16 03:38:[address] [facility] BASIC METABOLIC PANEL (7) 2020-01-16 03:38:00 Juana Leena CH I [facility] MAGNESIUM 2020-01-16 03:38:00 Juana [facility] CBC W/PLT COUNT & AUTO 2020-01-16 03:38:00 Juana [facility] DRUG SCREEN, URINE, 2020-01-15 21:52:00 [facility], [facility]OMATED 2020-01-15 18:16:00 Shady Gonzáles [facility] CT CHEST WITHOUT IV 2020-01-15 17:54:00 Shady Gonzáles [facility] XR CHEST 2 VIEWS 2020-01-15 16:57:00 Shady Gonzáles [facility] XR MANDIBLE 4 VIEWS MIN 2020-01-15 16:39:00 Shady Gonzáles [facility] VITAMIN D, 25-HYDROXY 2020-01-15 16:17:00 EliecerShady davidson [facility] COMPREHENSIVE METABOLIC 2020-01-15 16:17:00 Shady Gonzáles [facility] BILIRUBIN, DIRECT 2020-01-15 16:17:00 Shady Gonzáles [facility] CALCIUM, IONIZED 2020-01-15 16:17:00 EliecerShady davidson [facility] ZINC 2020-01-15 16:17:00 EliecerShayd davidson [facility] ANTI-NUCLEAR ANTIBODY (REILLY) 2020-01-15 16:17:00 EliecerShady davidson [facility] ACTIN (SMOOTH MUSCLE) 2020-01-15 16:17:00 Shady Gonzáles [facility] ANTIBODY, IGG [facility] MITOCHONDRIA M2 ANTIBODY 2020-01-15 16:17:00 Shady Gonzáles [facility] (IGG) [facility] IRON, TIBC, % SAT. (WITHOUT 2020-01-15 16:17:00 Shady Gonzáles [facility] FERRITIN) [facility] FERRITIN 2020-01-15 16:17:00 EliecerShady davidson [facility] TRANSFERRIN 2020-01-15 16:17:00 Shady Gonzáles [facility] QCMDK-3-HUEEZWMCWCL\\, SERUM 2020-01-15 16:17:00 Shady Gonzáles [facility] CERULOPLASMIN 2020-01-15 16:17:00 Shady Gonzáles [facility] ALPHA FETOPROTEIN (AFP), 2020-01-15 16:17:00 Shady Gonzáles [facility] TUMOR MARKER [facility] CARCINOEMBRYONIC ANTIGEN 2020-01-15 16:17:00 Shady Gonzáles [facility] (CEA) [facility] CARBOHYDRATE ANTIGEN 19-9 2020-01-15 16:17:00 EliecerShady davidson [facility] (CA 19-9) [facility] HEMOGLOBIN A1C 2020-01-15 16:17:00 Shady Gonzáles [facility] TSH 2020-01-15 16:17:00 EliecerShady davidson [facility] T3 2020-01-15 16:17:00 Shady Gonzáles [facility] T4 2020-01-15 16:17:00 Shady Gonzáles [facility] ETHANOL 2020-01-15 16:17:00 Shady Gonzáles [facility] FIBRINOGEN 2020-01-15 16:17:00 Shady Gonzáles [facility] PROTHROMBIN TIME/INR 2020-01-15 16:17:00 EliecerhSady davidson [facility] APTT 2020-01-15 16:17:00 [facility] A [facility]TIBODY, IGM 2020-01-15 16:17:00 EliecerShady davidson [facility] HEPATITIS B SURFACE ANTIGEN 2020-01-15 16:17:00 EliecerShady davidson [facility] HEPATITIS B SURFACE 2020-01-15 16:17:00 EliecerShady morales [facility] ANTIBODY [facility] HEPATITIS B CORE ANTIBODY, 2020-01-15 16:17:00 EliecerShady morales [facility] TOTAL [facility] HEPATITIS B CORE ANTIBODY, 2020-01-15 16:17:00 EliecerShady davidson [facility] IGM [facility] HEPATITIS C ANTIBODY 2020-01-15 16:17:00 Shady Gonzáles [facility] RPR 2020-01-15 16:17:00 EliecerShady davidson [facility] CYTOMEGALOVIRUS ANTIBODY, 2020-01-15 16:17:00 EliecerShady morales [facility] IGG [facility] CYTOMEGALOVIRUS ANTIBODY, 2020-01-15 16:17:00 Eliecer, [facility] IGM [facility] EBV ANTIBODY, IGM 2020-01-15 16:17:00 Shady Gonzáles [facility] TYPE AND SCREEN, AUTOMATED 2020-01-15 16:17:00 Shady Gonzáles [facility] 2D ECHO W/ DOPPLER 2020-01-15 14:45:[address] [facility] (CW/PW/COLOR) [facility] CAROTID DOPPLER BILATERAL 2020-01-15 14:41:00 Shady Gonzáles [facility] SODIUM, RANDOM URINE 2020-01-15 12:46:00 Graciela Stone [facility] CREATININE, RANDOM URINE 2020-01-15 12:46:00 Graciela Stone I [facility] AMMONIA 2020-01-15 08:32:00 [facility] 2020-01-15 08:32:00 Graciela Stone [facility] BASIC METABOLIC PANEL (7) 2020-01-15 03:56:00 Graciela Stone [facility] PROTHROMBIN TIME/INR 2020-01-15 03:56:[address] [facility] HEPATIC FUNCTION PANEL 2020-01-15 03:56:00 [facility] MAGNESIUM 2020-01-15 03:56:00 Ramone [facility] URIC ACID 2020-01-15 03:56:00 Eliecer [facility] GAMMA GLUTAMYL TRANSFERASE 2020-01-15 03:56:00 Eliecer [facility] (GGT) [facility] PHOSPHORUS 2020-01-15 03:56:00 Eliecer [facility] LIPID PANEL 2020-01-15 03:56:00 Shady Gonzáles [facility] CBC W/PLT COUNT & AUTO 2020-01-15 03:56:00 Ramone [facility] (CELLAVISION MANUAL DIFF) 2020-01-15 03:56:00 Graciela Stone [facility] BASIC METABOLIC PANEL (7) 2020-01-14 21:59:00 Graciela Stoen [facility] PROTHROMBIN TIME/INR 2020-01-14 21:59:00 [facility] 2020-01-14 21:59:00 [facility] CBC W/PLT COUNT & AUTO 2020-01-14 21:59:00 Ramone [facility] SARS-COV2/RT-PCR ([facility] & 2020-01-14 19:28:00 Tameka Hunter CH I [facility] - REF LABS) [facility] BASIC METABOLIC PANEL (7) 2020-01-03 14:34:00 LarryKadie mcdermott CH I [facility] HEPATIC FUNCTION PANEL 2020-01-03 14:34:00 Larry [facility] PROTHROMBIN TIME/INR 2020-01-03 14:34:[address] [facility] ALPHA FETOPROTEIN (AFP), 2020-01-03 14:34:00 [facility] - TUMOR MARKER [facility] CBC W/PLT COUNT & AUTO 2020-01-03 14:34:00 [facility] DIFFERENTIAL [facility] Plan of Care Planned Activity Planned Date Details Comments Source Future Scheduled 2030-01-16 [facility]00 [facility] (procedure) [code = 576472866] Future Scheduled 2020-03-28 INFLUENZA VACCINE (#1) [facility]:00 [code = INFLUENZA Medical Ce nter VACCINE (#1)] Future Scheduled 2020-02-26 [facility]ZA VACCINE [place] [facility] 00:[facility]:00 [code = INFLUENZA VACCINE] Future Scheduled 2019-07-28 Medicare IPPE (WELCOME [facility] Test 00:00:00 TO MEDICARE) [code = Medical Center Medicare IPPE (WELCOME TO MEDICARE)] Future Scheduled 2019 65+ PNEUMOCOCCAL [facility] Test 00:00:00 VACCINE (1 of 2 - PCV13) [code = 65+ PNEUMOCOCCAL VACCINE (1 of 2 - PCV13)] Future Scheduled 2019 P[address]OCOCCAL [address] Test 00:00:00 LOW/MEDIUM RISK (1 of Medica l Center 2 - PCV13) [code = PNEUMOCOCCAL 65+ LOW/MEDIUM RISK (1 of 2 - PCV13)] Future Scheduled 2004 BREAST CANCER [facility] 00:00:00 SCREENING [code = BREAST CANCER SCREENING] Future Scheduled 2004 COLONOSCOPY SCREENING [facility] Test 00:00:00 [code = COLONOSCOPY SCREENING] Future Scheduled 2004 SHINGLES VACCINES (#1) [facility] Test 00:00:00 [code = SHINGLES VACCINES (#1)] Future Scheduled 1975 [facility] for [facility] 00:00:00 malignant neoplasm of cervix (procedure) [code = 928001353] Future Scheduled [address] [facility] Test 00:00:[address] [facility] cervix (procedure) [code = 797285868] Future Scheduled [address] [facility] - Test 00:00:[address] [facility] breast (procedure) [code = 522281169] Encounters Start End Encounter Admission Attending Care Care Encounter Source Date/Time Date/Time Type Type Clinicians Facility Department ID 2020-02-03 2020-02-03 Outpatient Rafia Moratayat [id number] [address] 11:48[facility]00 11:48:00 [facility] 2020-01-13 2020-01-13 Outpatient Rafia [place] [id number] 14:40:00 14:40:00 [facility] 2020-01-03 2020-01-03 Transition [place] [id number] 00:00:00 00:00:00 of Care Aye [place] [id number] [place] [id number] 2019-12-28 2019-12-31 [facility] [id number] 21:39:45 13:10:00 Encounter Jacklyn Lewis [id number] [place] [id number] [place] [id number] 2019-11-03 2019-11-03 [facility] [id number] 13:20:00 13:20:00 [facility] 2019-09-10 2019-09-10 [facility] [id number] 09:30:00 09:30:00 [facility] Clinics 2019-08-31 2019-08-31 Outpatient Rafia Sanford [id number] 08:00:00 08:00:00 [facility] 2019-08-24 2019-08-24 Outpatient Rafia Sanford [id number] 10:41:00 10:41:00 [facility] 2019-08-19 2019-08-19 Outpatient Rafia Sanford [id number] 13:00:00 13:00:00 [facility] Results Test Description Test Time Test Comments Results Result Comments Source Comprehensive metabolic panel 2020-02-15 13:17:00 Test Item Value Reference Range Interpretation Comme nts Protein, Total (test code 6.5 6.0- 8.3 gm/dL = 2885-2) Albumin (test code = 3.2 g/dL 3.5-5 L 40572-5) Alkaline Phosphatase 107 U/L 40-150 (test code = 6768-6) Total Bilirubin (test 7.4 mg/dL 0.2-1.2 H code = 1975-2) Sodium (test code = 140 meq/L 819-351 1676-2) Potassium (test code = 4.1 meq/L 3.5-5.1 2823-3) Chloride (test code = 107 meq/L 98-107 2075-0) CO2 (test code = 8-9) 26 meq/L 22-29 BUN (test code = 3094-0) 23 mg/dL 7-21 H Creatinine (test code = 1.33 mg/dL 0.57-1.25 H 2160-0) Glucose (test code = 87 mg/dL 70-105 2345-7) Calcium (test code = 9.5 mg/dL 8.4-10.2 20132-5) AST (test code = 1920-8) 39 U/L 5-34 H ALT (test code = 1742-6) 16 U/L 6-55 EGFR (test code = 40 mL/min/1.73 [place] [address]-9) ACCURATE CREATININE JACOB ANH IN PREDICTING GLOMERULAR FILT RATION RATE. ESTIMATED GFR IS NOT APPLICAB LE FOR DIALYSIS PATIEN TS. VALENTE (test code = VALENTE) Broach Setter ID - LMSpecimen moderately icteric Lab Interpretation (test Abnormal code = 19070-3) [facility] [id number] 13:17:00 Test Item Value Reference Range Interpretation Comments Bilirubin, Direct (test code 2.5 mg/dL 0.1-0.5 H = 1968-7) VALENTE (test code = VALENTE) Broach Setter ID - LM Lab Interpretation (test Abnormal code = 56750-2) [facility]esium2020-07-21 13:17:00 Test Item Value Reference Range Interpretation Comments Magnesium (test code = 1.8 mg/dL 1.6-2.6 81428-2) VALENTE (test code = VALENTE) Broach Setter ID - LM Lab Interpretation (test Normal code = 45684-3) [facility] 13:17:00 Test Item Value Reference Range Interpretation Comments MAGNESIUM (BEAKER) (test code = 1.8 mg/dL 1.6-2.6 627) Broach Setter ID - LMCOMPREHENSIVE METABOLIC [id number] 13:17:00 Test Item Value Reference Range Interpretation Comments TOTAL PROTEIN 6.5 gm/dL 6.0-8.3 (BEAKER) (test code = 770) ALBUMIN (BEAKER) 3.2 g/dL 3.5-5.0 L (test code = 1145) ALKALINE PHOSPHATASE 107 U/L 40-150 (BEAKER) (test code = 346) BILIRUBIN TOTAL 7.4 mg/dL 0.2-1.2 H (BEAKER) (test code = 377) SODIUM (BEAKER) (test 140 meq/L 136-145 code = 381) POTASSIUM (BEAKER) 4.1 meq/L 3.5-5.1 (test code = 379) CHLORIDE (BEAKER) 107 meq/L 98-107 (test code = 382) CO2 (BEAKER) (test 26 meq/L 22-29 code = 355) BLOOD UREA NITROGEN 23 mg/dL 7-21 H (BEAKER) (test code = 354) CREATININE (BEAKER) 1.33 mg/dL 0.57-1.25 H (test code = 358) GLUCOSE RANDOM 87 mg/dL 70-105 (BEAKER) (test code = 652) CALCIUM (BEAKER) 9.5 mg/dL 8.4-10.2 (test code = 697) AST (SGOT) (BEAKER) 39 U/L 5-34 H (test code = 353) ALT (SGPT) (BEAKER) 16 U/L 6-55 (test code = 347) EGFR (BEAKER) (test 40 mL/min/1.73 ESTIMA MADAI GFR IS code = 1092) sq m NOT ACCURATE CREATININE CLEARANCE IN PREDICTING GLOMERULAR FILTRATION RATE . ESTIMATED GFR I S NOT APPLICABLE FOR DIALYSIS PATIEN TS. Broach Setter ID - LMSpecimen moderately ictericBILIRUBIN, [id number] 13:17:00 Test Item Value Reference Range Interpretation Comments BILIRUBIN DIRECT (BEAKER) (test 2.5 mg/dL 0.1-0.5 H code = 706) Broach Setter ID - LMProthrombin time/[id number] 13:05:00 Test Item Value Reference Range Interpretation Comments Protime (test code = 18.1 11.9- 14.2 H 5902-2) seconds INR (test code = 1.5 <=5.9 6301-6) VAELNTE (test code = VALENTE) Effective 12/23/2018: PT Reference Range ChangeNew: 11.9-14.2 Previous: 11.7-14.7 RECOMMENDED COUMADIN/WARFARIN INR THERAPY RANGESSTANDARD DOSE: 2.0-3.0 Includes: PROPHYLAXIS for venous thrombosis, systemic embolization; TREATMENT for venous thrombosis and/or pulmonary embolus.HIGH RISK: Target INR is 2.5-3.5 for patients wiht mechanical heart valves. Lab Interpretation Abnormal (test code = 48172-8) [facility]PROT[facility]BIN TIME/[id number] 13:05:00 Test Item Value Reference Range Interpretation Comments PROTIME (BEAKER) (test code = 18.1 seconds 11.9-14.2 H 759) INR (BEAKER) (test code = 370) 1.5 <=5.9 Effective 12/23/2018: PT Reference Range ChangeNew: 11.9-14.2 Previous: 11.7- 14.7RECOMMENDED COUMADIN/WARFARIN INR THERAPY RANGESSTANDARD DOSE: 2.0-3.0 Includes: PROPHYLAXIS for venous thrombosis, systemic embolization; TREATMENT for venous thrombosis and/or pulmonary embolus.HIGH RISK: Target INR is2.5-3.5 for patients wiht mechanical heart valves.CBC with platelet count + automated [id number] 12:59:00 Test Item Value Reference Range Interpretation Comments WBC (test code = 6690-2) 2.5 3.5- 10.5 K/L L RBC (test code = 789-8) 2.31 3.93- 5.22 M/L L MCHC (test code = 786-4) 31.4 32.2- 35.5 GM/DL L Hematocrit (test code = 4544-3) 28.0 % 34.1-44.9 L MCV (test code = 787-2) 121.2 fL 79.4-94.8 H MCH (test code = 785-6) 38.1 pg 25.6-32.2 H RDW (test code = 788-0) 20.9 % 11.7-14.4 H Platelets (test code = 777-3) 48 150- 450 K/CU MM L MPV (test code = 76123-0) 10.0 fL 9.4-12.3 nRBC (test code = 413) 0 0- 0 /100 WBC % Neutros (test code = 429) 62 % % Lymphs (test code = 430) 24 % % Monos (test code = 431) 10 % % Eos (test code = 432) 4 % % Baso (test code = 437) 1 % # Neutros (test code = 670) 1.56 1.56- 6.13 K/L # Lymphs (test code = 414) 0.60 1.18- 3.74 K/L L # Monos (test code = 415) 0.24 0.24- 0.36 K/L # Eos (test code = 416) 0.10 0.04- 0.36 K/L # Baso (test code = 417) 0.02 0.01- 0.08 K/L Immature Granulocytes-Relative 0 % 0-1 (test code = 2801) Lab Interpretation (test code = Abnormal 53668-7) [facility] & AUTO [id number] 12:59:00 Test Item Value Reference Range Interpretation Comments WHITE BLOOD CELL COUNT (BEAKER) 2.5 K/ L 3.5-10.5 L (test code = 775) RED BLOOD CELL COUNT (BEAKER) 2.31 M/ L 3.93-5.22 L (test code = 761) HEMOGLOBIN (BEAKER) (test code = 8.8 GM/DL 11.2-15.7 L 410) HEMATOCRIT (BEAKER) (test code = 28.0 % 34.1-44.9 L 411) MEAN CORPUSCULAR VOLUME (BEAKER) 121.2 fL 79.4-94.8 H (test code = 753) MEAN CORPUSCULAR HEMOGLOBIN 38.1 pg 25.6-32.2 H (BEAKER) (test code = 751) MEAN CORPUSCULAR HEMOGLOBIN CONC 31.4 GM/DL 32.2-35.5 L (BEAKER) (test code = 752) RED CELL DISTRIBUTION WIDTH 20.9 % 11.7-14.4 H (BEAKER) (test code = 412) PLATELET COUNT (BEAKER) (test code 48 K/CU MM 150-450 L = 756) MEAN PLATELET VOLUME (BEAKER) 10.0 fL 9.4-12.3 (test code = 754) NUCLEATED RED BLOOD CELLS (BEAKER) 0 /100 WBC 0-0 (test code = 413) NEUTROPHILS RELATIVE PERCENT 62 % (BEAKER) (test code = 429) LYMPHOCYTES RELATIVE PERCENT 24 % (BEAKER) (test code = 430) MONOCYTES RELATIVE PERCENT 10 % (BEAKER) (test code = 431) EOSINOPHILS RELATIVE PERCENT 4 % (BEAKER) (test code = 432) BASOPHILS RELATIVE PERCENT 1 % (BEAKER) (test code = 437) NEUTROPHILS ABSOLUTE COUNT 1.56 K/ L 1.56-6.13 (BEAKER) (test code = 670) LYMPHOCYTES ABSOLUTE COUNT 0.60 K/ L 1.18-3.74 L (BEAKER) (test code = 414) MONOCYTES ABSOLUTE COUNT (BEAKER) 0.24 K/ L 0.24-0.36 (test code = 415) EOSINOPHILS ABSOLUTE COUNT 0.10 K/ L 0.04-0.36 (BEAKER) (test code = 416) BASOPHILS ABSOLUTE COUNT (BEAKER) 0.02 K/ L 0.01-0.08 (test code = 417) IMMATURE GRANULOCYTES-RELATIVE 0 % 0-1 PERCENT (BEAKER) (test code = 2801) CBC with platelet count + automated [id number] 15:30:00 Test Item Value Reference Interpretation Comments Range WBC (test code = 2.0 3.8- 10.8 L ) Thousand/uL RBC (test code = 2.23 3.80- 5.10 L 789-8) Million/uL Hemoglobin (test 8.2 g/dL 11.7-15.5 L code = ) Hematocrit (test 23.0 % 35-45 L code = ) MCV (test code = 103.1 fL 80-100 H ) MCH (test code = 36.8 pg 27-33 H ) MCHC (test code = 35.7 g/dL 32-36 ) RDW (test code = 19.5 % 11-15 H ) Platelets (test 44 140- 400 L code = ) Thousand/uL MPV (test code = 10.4 fL 7.5-12.5 1528929) # Neutros (test 1128 1,500 - 7,800 L code = 20200220) cells/uL # Lymphs (test code 534 850- 3,900 L = 731-0) cells/uL # Monos (test code 238 200- 950 = ) cells/uL # Eos (test code = 90 15- 500 711-2) cells/uL # Baso (test code = 10 0- 200 704-7) cells/uL % Neutros (test 56.4 % code = ) % Lymphs (test code 26.7 % = 6553332) % Monos (test code 11.9 % = ) % Eos (test code = 4.5 % 20200215) % Baso (test code = 0.5 % 20200216) Comment(s) (test Review of t he code = 20200222) peripheral s mear revealsdecrease d numbers of platelets. VALENTE (test code = FASTING:YESFASTIN VALENTE) G: YES RAC (test code = Performing RAC) Organization Information: Site ID: RGA Name: [employer] [facility] Address: [address] [place] [id number] Director: Alonso Carrasco Lab Interpretation Abnormal (test code = 23063-6) [facility] HospitalPLATELET [id number] 15:30:00 Test Item Value Reference Range Interpretation Comments Platelet Estimate (test DECREASED ADEQUATE A code = 40359-5) VALENTE (test code = VALETNE) FASTING:YESFASTING: YES RAC (test code = RAC) Performing Organization Information: Site ID: [id number] Name: [facility] Address: [address] [place], [place] [id number] Director: Alonso Carrasco Lab Interpretation (test Abnormal code = 32473-2) [facility] HospitalMetanephrines2020-07-06 10:36:00 Test Item Value Reference Interpretation Comments Range Metanephrine (test 46 pg/mL < OR = 57 This mushtaq t was developed code = 1748303) and its anal ytical performance characteristics havebeen determined by [facility].It h as not been cleared or appr jean-claude by FDA. This assay has been validatedpursua nt to the CLIA regulation s and is used for clinic al purposes. Normetanephrine 213 pg/mL < OR = 148 H This test w as developed (test code = and its analyti steven 2977867) performance characteristics havebeen determined by [facility].It h as not been cleared or appr jean-claude by FDA. This assay has been validatedpursua nt to the CLIA regulation s and is used for clinic al purposes. Total Metanephrine 259 pg/mL < OR = 205 H Elevatio ns > 4-fold upper (test code = reference range : strongly 20191130) suggestive of apheochromocyto ma(1). Elevations >1 - 4-fold upper reference range:significa nt but not diagnostic, may be due to medications or stress. Suggestrunning 24 hr urine fractionated me tanephrines and serum Chrom ogranin A forconfirmation . Reference: (1) Latrice Lorenz et al, Plasma Financial Sales Consultant mogranin A or Urine FractionatedMet anephrines Follow-Up Testi ng Improves the Diagnostic Accuracy of PlasmaFractiona madai Metanephrines f or Pheochromocytom a. The Journal of ClinicalEndocri nology and Metabolism 93 ( 1),91-95, 2007. For addit ional information, pl ease refer tohttp://educat ion.[facility].Retailo/f aq/MetFract Free(This link is being provided for informational/e ducational purposes only.) This test was developed a nd its analytical perf ormance characteristics havebeen determined by [facility].It h as not been cleared or appr jean-claude by FDA. This assay has been validatedpursua nt to the CLIA regulation s and is used for clinic al purposes. VALENTE (test code = Performing Lab VALENTE) EZ [facility] [address] [place] [address] I Shashank ADRIAN, PhD, AMINA Lab Interpretation Abnormal (test code = 79165-9) [facility] HospitalCatecholamines, Fractionated, 24hr [id number] 11:55:00 Test Item Value Reference Interpretation Comments Range TOTAL VOLUME (test 1000 mL code = 9925811) Epinephrine,24 Hr <2 2- 24 mcg/24 h L Result b elow clinical Ur (test code = reportable r von for ) this analyte, w hich is 2 mcg/L.Repo rted result was calc ulated using 2 mcg/L. This test was develo ped and its analyti steven performance characteristics havebeen determ ined by [facility] .It has not been cl eared or approved by FDA. This assay has been validatedpursua nt to the CLIA regula tions and is used for clinical purpos es. Norepinephrine 9 15- 100 mcg/24 L This test was (test code = h developed and i ts 5778134) analytical performance characteristics havebeen determ ined by [facility] .It has not been cl eared or approved by FDA. This assay has been validatedpursua nt to the CLIA regula tions and is used for clinical purpos es. Calculated Total 9 26- 121 mcg/24 L This mushtaq t was E+Ne (test code = h developed and its 20190907) analytical performance characteristics havebeen determ ined by [facility] .It has not been cl eared or approved by FDA. This assay has been validatedpursua nt to the CLIA regula tions and is used for clinical purpos es. Dopamine,24 Hr Ur <10 52- 480 mcg/24 L Result b elow clinical (test code = h reportable rang e for ) this analyte, w hich is 10 mcg/L.Rep orted result was calc ulated using 10 mcg/L. This test was develo ped and its analyti steven performance characteristics havebeen determ ined by [facility] .It has not been cl eared or approved by FDA. This assay has been validatedpursua nt to the CLIA regula tions and is used for clinical purpos es. Creatinine,24 Hr 0.88 0.50- 2.15 Urin (test code = g/24 h ) VALENTE (test code = Performing Lab VALENTE) EZ [facility] [address] [place] [address] Mark Encarnacion MD, PhD, AMINA Lab Interpretation Abnormal (test code = 89396-2) [facility] Hospital[facility]IS[facility]OUS LAB [id number] 12:33:00 Test Item Value Reference Range Interpretation Comments SCAN RESULT (test code = 6763214) Dexamethasone serum [id number] 12:33:00Scan ResultQUEST NON-INTERFACED LAB [facility]ALPHA-1-ANTITRYPSIN [id number] 16:28:00 Test Item Value Reference Range Interpretation Comments Lab Interpretation (test code = Normal 66503-9) [facility] HospitalMetanephrines, 24 hour [id number] 12:57:00 Test Item Value Reference Interpretation Comments Range TOTAL VOLUME (test 1000 mL code = 0094033) Metanephrine (test 205 90- 315 This mushtaq t was code = 0947920) mcg/24 h developed an d its analytical perf ormance characteristics havebeen determ ined by [employer] [facility] .It has not been cleare d or approved by FDA . This assay has been validatedpursua nt to the [place] [facility] and is used for clinical purpos es. Normetanephrine 657 122- 676 This test w as (test code = mcg/24 h developed and i ts 1408484) analytical perf ormance characteristics havebeen determ ined by [employer] [facility] .It has not been cleare d or approved by FDA . This assay has been validatedpursua nt to the [place] [facility] [facility] and is used for clinical purpos es. Metaneph, Total, 862 224- 832 H A four-fol d elevation 24H Ur (test code = mcg/24 h of urina ry 2609-6) normetanephrine s is extremely likel y to bedue to a tumo r, while a four-fold iftikhar vation of urinary metanephrines i shighly suggestive, but not diagnostic, of a tumor. Measurement of plasmametanephr mariela and chromogranin A is recommended for confirmation. T his test was developed a nd its analytical perf ormance characteristics havebeen determ ined by [employer] [facility] .It has not been cleare d or approved by FDA . This assay has been validatedpursua nt to the [place] [facility] [facility] and is used for clinical purpos es. VALENTE (test code = Performing Lab VALENTE) EZ [facility] [address] [place] [address] Mark Encarnacion MD, PhD, AMINA Lab Interpretation Abnormal (test code = 30768-3) [facility] HospitalCalcium, [id number] 05:42:00 Test Item Value Reference Range Interpretation Comments Calcium, Ion (test code = 1993-) 1.11 mmol/L 1.12-1.27 L pH, Blood (test code = 66006-5) 7.41 Lab Interpretation (test code = Abnormal 36861-4) [facility] HospitalCALCIUM, [id number] 05:42:00 Test Item Value Reference Range Interpretation Comments CALCIUM IONIZED (BEAKER) (test 1.11 mmol/L 1.12-1.27 L code = 698) PH, BLOOD (BEAKER) (test code = 7.41 1810) COMPREHENSIVE METABOLIC [id number] 04:57:00 Test Item Value Reference Range Interpretation Comments TOTAL PROTEIN 5.7 gm/dL 6.0-8.3 L (BEAKER) (test code = 770) ALBUMIN (BEAKER) 3.4 g/dL 3.5-5.0 L (test code = 1145) ALKALINE PHOSPHATASE 58 U/L 40-150 (BEAKER) (test code = 346) BILIRUBIN TOTAL 6.9 mg/dL 0.2-1.2 H (BEAKER) (test code = 377) SODIUM (BEAKER) (test 139 meq/L 136-145 code = 381) POTASSIUM (BEAKER) 3.4 meq/L 3.5-5.1 L (test code = 379) CHLORIDE (BEAKER) 104 meq/L 98-107 (test code = 382) CO2 (BEAKER) (test 27 meq/L 22-29 code = 355) BLOOD UREA NITROGEN 27 mg/dL 7-21 H (BEAKER) (test code = 354) CREATININE (BEAKER) 2.03 mg/dL 0.57-1.25 H (test code = 358) GLUCOSE RANDOM 108 mg/dL 70-105 H (BEAKER) (test code = 652) CALCIUM (BEAKER) 9.1 mg/dL 8.4-10.2 (test code = 697) AST (SGOT) (BEAKER) 36 U/L 5-34 H (test code = 353) ALT (SGPT) (BEAKER) 13 U/L 6-55 (test code = 347) EGFR (BEAKER) (test 25 mL/min/1.73 ESTIMA MADAI GFR IS code = 1092) sq m NOT ACCURATE CREATININE CLEARANCE IN PREDICTING GLOMERULAR FILTRATION RATE . ESTIMATED GFR I S NOT APPLICABLE FOR DIALYSIS PATIEN TS. Broach Setter ID - BSSpecimen moderately ictericHepatic function [id number] 04:53:00 Test Item Value Reference Range Interpretation Comments Protein, Total (test code 5.7 6.0- 8.3 gm/dL L = 2885-2) Albumin (test code = 3.4 g/dL 3.5-5 L 83035-3) Total Bilirubin (test 6.9 mg/dL 0.2-1.2 H code = 1974-2) Bilirubin, Direct (test 2.2 mg/dL 0.1-0.5 H code = 1967-7) Alkaline Phosphatase 58 U/L 40-150 (test code = 6768-6) AST (test code = 1920-8) 36 U/L 5-34 H ALT (test code = 1742-6) 13 U/L 6-55 VALENTE (test code = VALENTE) Broach Setter ID - BSSpecimen moderately icteric Lab Interpretation (test Abnormal code = 69548-9) [facility] HospitalPhosphorus2020-07-[facility] 04:53:00 Test Item Value Reference Range Interpretation Comments Phosphorus (test code = 3.2 mg/dL 2.3-4.7 2777-1) VALENTE (test code = VALENTE) Broach Setter ID - BS Lab Interpretation (test Normal code = 09482-0) [facility] HospitalPHOSPHORUS2020-07-01 04:53:00 Test Item Value Reference Range Interpretation Comments PHOSPHORUS (BEAKER) (test code = 3.2 mg/dL 2.3-4.7 604) Broach Setter ID - [id number] 04:53:00 Test Item Value Reference Range Interpretation Comments MAGNESIUM (BEAKER) (test code = 1.7 mg/dL 1.6-2.6 627) Broach Setter ID - BSHEPATIC FUNCTION [id number] 04:53:00 Test Item Value Reference Range Interpretation Comments TOTAL PROTEIN (BEAKER) (test code = 5.7 gm/dL 6.0-8.3 L 770) ALBUMIN (BEAKER) (test code = 1145) 3.4 g/dL 3.5-5.0 L BILIRUBIN TOTAL (BEAKER) (test code 6.9 mg/dL 0.2-1.2 H = 377) BILIRUBIN DIRECT (BEAKER) (test 2.2 mg/dL 0.1-0.5 H code = 706) ALKALINE PHOSPHATASE (BEAKER) (test 58 U/L 40-150 code = 346) AST (SGOT) (BEAKER) (test code = 36 U/L 5-34 H 353) ALT (SGPT) (BEAKER) (test code = 13 U/L 6-55 347) Broach Setter ID - BSSpecimen moderately ictericCBC W/PLT COUNT & AUTO [id number] 04:42:00 Test Item Value Reference Range Interpretation Comments WHITE BLOOD CELL COUNT (BEAKER) 2.1 K/ L 3.5-10.5 L (test code = 775) RED BLOOD CELL COUNT (BEAKER) 2.65 M/ L 3.93-5.22 L (test code = 761) HEMOGLOBIN (BEAKER) (test code = 9.8 GM/DL 11.2-15.7 L 410) HEMATOCRIT (BEAKER) (test code = 30.0 % 34.1-44.9 L 411) MEAN CORPUSCULAR VOLUME (BEAKER) 113.2 fL 79.4-94.8 H (test code = 753) MEAN CORPUSCULAR HEMOGLOBIN 37.0 pg 25.6-32.2 H (BEAKER) (test code = 751) MEAN CORPUSCULAR HEMOGLOBIN CONC 32.7 GM/DL 32.2-35.5 (BEAKER) (test code = 752) RED CELL DISTRIBUTION WIDTH 25.2 % 11.7-14.4 H (BEAKER) (test code = 412) PLATELET COUNT (BEAKER) (test code 32 K/CU MM 150-450 L = 756) MEAN PLATELET VOLUME (BEAKER) 11.6 fL 9.4-12.3 (test code = 754) NUCLEATED RED BLOOD CELLS (BEAKER) 0 /100 WBC 0-0 (test code = 413) NEUTROPHILS RELATIVE PERCENT 64 % (BEAKER) (test code = 429) LYMPHOCYTES RELATIVE PERCENT 23 % (BEAKER) (test code = 430) MONOCYTES RELATIVE PERCENT 11 % (BEAKER) (test code = 431) EOSINOPHILS RELATIVE PERCENT 1 % (BEAKER) (test code = 432) BASOPHILS RELATIVE PERCENT 1 % (BEAKER) (test code = 437) NEUTROPHILS ABSOLUTE COUNT 1.36 K/ L 1.56-6.13 L (BEAKER) (test code = 670) LYMPHOCYTES ABSOLUTE COUNT 0.49 K/ L 1.18-3.74 L (BEAKER) (test code = 414) MONOCYTES ABSOLUTE COUNT (BEAKER) 0.23 K/ L 0.24-0.36 L (test code = 415) EOSINOPHILS ABSOLUTE COUNT 0.03 K/ L 0.04-0.36 L (BEAKER) (test code = 416) BASOPHILS ABSOLUTE COUNT (BEAKER) 0.01 K/ L 0.01-0.08 (test code = 417) IMMATURE GRANULOCYTES-RELATIVE 1 % 0-1 PERCENT (BEAKER) (test code = 2801) PROTHROMBIN [id number] 04:36:00 Test Item Value Reference Range Interpretation Comments PROTIME (BEAKER) (test code = 25.0 seconds 11.9-14.2 H 759) INR (BEAKER) (test code = 370) 2.3 <=5.9 Effective 12/23/2018: PT Reference Range ChangeNew: 11.9-14.2 Previous: 11.7- 14.7RECOMMENDED COUMADIN/WARFARIN INR THERAPY RANGESSTANDARD DOSE: 2.0-3.0 Includes: PROPHYLAXIS for venous thrombosis, systemic embolization; TREATMENT for venous thrombosis and/or pulmonary embolus.HIGH RISK: Target INR is2.5-3.5 for patients wiht mechanical heart valves.Body fluid culture + gram stain 2020-01-25 12:05:00 Test Item Value Reference Range Interpretation Comments Result (test code = 6463-4) No growth Gram Stain Result (test No organisms seen code = 1123) [facility] HospitalBODY FLUID CULTURE + GRAM [id number] 12:05:00 Test Item Value Reference Range Interpretation Comments CULTURE (BEAKER) (test No growth code = 1095) GRAM STAIN RESULT <1+ White blood cells (BEAKER) (test code = seen 1123) GRAM STAIN RESULT No organisms seen (BEAKER) (test code = 15956) Manual [id number] 07:35:00 Test Item Value Reference Range Interpretation Comments % Neutros (test code = 66 % 2816) % Lymphs (test code = 24 % 2817) % Monos (test code = 7 % 2818) % Eos (test code = 2819) 2 % % Metamyelo (test code = 1 % 0-0 H 282) # Neutros (test code = 0.92 K/ul 1.56-6.13 L 2830) # Lymphs (test code = 0.34 K/ul 1.18-3.74 L 2831) # Monos (test code = 0.10 K/uL 0.24-0.36 L 2832) # Eos (test code = 2834) 0.03 K/uL 0.04-0.36 L # Metamyelo (test code = 0.01 K/uL 0-0 H 2836) Total Counted (test code 100 = 1351) Smudge Cells (test code = Present 1371) Giant Platelet (test code Present = 313) Anisocytosis (test code = 2+ moderate 961) Macrocytes (test code = 2+ moderate 964) Poikilocytes (test code = 2+ moderate 966) [place] Cells (test code = 2+ moderate 474) Artifact (test code = Present 3432) Platelet Conc (test code Decreased = 3438) VALENTE (test code = VALENTE) Broach Setter ID - [id number] ID - Maria Del Carmen Quintana comments: Slide comments: Lab Interpretation (test Abnormal code = 29815-2) [facility] W/PLT COUNT & AUTO [id number] 07:35:00 Test Item Value Reference Range Interpretation Comments WHITE BLOOD CELL COUNT (BEAKER) 1.4 K/ L 3.5-10.5 L (test code = 775) RED BLOOD CELL COUNT (BEAKER) 2.49 M/ L 3.93-5.22 L (test code = 761) HEMOGLOBIN (BEAKER) (test code = 8.9 GM/DL 11.2-15.7 L 410) HEMATOCRIT (BEAKER) (test code = 27.7 % 34.1-44.9 L 411) MEAN CORPUSCULAR VOLUME (BEAKER) 111.2 fL 79.4-94.8 H (test code = 753) MEAN CORPUSCULAR HEMOGLOBIN 35.7 pg 25.6-32.2 H (BEAKER) (test code = 751) MEAN CORPUSCULAR HEMOGLOBIN CONC 32.1 GM/DL 32.2-35.5 L (BEAKER) (test code = 752) RED CELL DISTRIBUTION WIDTH 25.2 % 11.7-14.4 H (BEAKER) (test code = 412) PLATELET COUNT (BEAKER) (test code 28 K/CU MM 150-450 L = 756) MEAN PLATELET VOLUME (BEAKER) 10.3 fL 9.4-12.3 (test code = 754) NUCLEATED RED BLOOD CELLS (BEAKER) 0 /100 WBC 0-0 (test code = 413) (CELLAVISION MANUAL DIFF)2020-01-25 07:35:00 Test Item Value Reference Range Interpretation Comments NEUTROPHILS - REL 66 % (CELLAVISION)(BEAKER) (test code = 2816) LYMPHOCYTES - REL 24 % (CELLAVISION)(BEAKER) (test code = 2817) MONOCYTES - REL 7 % (CELLAVISION)(BEAKER) (test code = 2818) EOSINOPHILS - REL 2 % (CELLAVISION)(BEAKER) (test code = 2819) METAMYELOCYTES - REL 1 % 0-0 H (CELLAVISION)(BEAKER) (test code = 2821) NEUTROPHILS - ABS 0.92 K/ul 1.56-6.13 L (CELLAVISION)(BEAKER) (test code = 2830) LYMPHOCYTES - ABS 0.34 K/ul 1.18-3.74 L (CELLAVISION)(BEAKER) (test code = 2831) MONOCYTES - ABS 0.10 K/uL 0.24-0.36 L (CELLAVISION)(BEAKER) (test code = 2832) EOSINOPHILS - ABS 0.03 K/uL 0.04-0.36 L (CELLAVISION)(BEAKER) (test code = 2834) METAMYELOCYTES - ABS 0.01 K/uL 0.00-0.00 H (CELLAVISION)(BEAKER) (test code = 2836) TOTAL COUNTED (BEAKER) (test code 100 = 1351) SMUDGE CELLS (BEAKER) (test code Present = 1371) GIANT PLATELETS (BEAKER) (test Present code = 313) ANISOCYTOSIS (BEAKER) (test code 2+ moderate = 961) MACROCYTES (BEAKER) (test code = 2+ moderate 964) POIKILOCYTES (BEAKER) (test code 2+ moderate = 966) SARAH CELLS (BEAKER) (test code = 2+ moderate 474) ARTIFACT (CELLAVISION)(BEAKER) Present (test code = 3432) PLATELET CONCENTRATION Decreased (CELLAVISION)(BEAKER) (test code = 3438) Broach Setter ID - [id number] ID - Maria Del Carmen Lilian comments: Slide comments:Basic Metabolic [id number] 06:24:00 Test Item Value Reference Range Interpretation Comments Sodium (test code = 140 meq/L 592-147 4138-2) Potassium (test code 3.4 meq/L 3.5-5.1 L = 2823-3) Chloride (test code = 105 meq/L 98-107 2075-0) CO2 (test code = 25 meq/L 22-29 2028-9) BUN (test code = 31 mg/dL 7-21 H 3094-0) Creatinine (test code 2.35 mg/dL 0.57-1.25 H = 2160-0) Glucose (test code = 108 mg/dL 70-105 H 2345-7) Calcium (test code = 8.7 mg/dL 8.4-10.2 84239-3) EGFR (test code = 21 mL/min/1.73 [place] [address]-4) NOT ACCURATE CREATININE CLEARANCE IN PREDICTING GLOMERULAR FILTRATION RATE . ESTIMATED GFR I S NOT APPLICABLE FOR DIALYSIS PATIENTS. VALENTE (test code = VALENTE) Broach Setter ID - MITCH Jane moderately icteric Lab Interpretation Abnormal (test code = 84552-3) [facility] METABOLIC [id number] 06:24:00 Test Item Value Reference Range Interpretation Comments SODIUM (BEAKER) 140 meq/L 136-145 (test code = 381) POTASSIUM (BEAKER) 3.4 meq/L 3.5-5.1 L (test code = 379) CHLORIDE (BEAKER) 105 meq/L 98-107 (test code = 382) CO2 (BEAKER) (test 25 meq/L 22-29 code = 355) BLOOD UREA NITROGEN 31 mg/dL 7-21 H (BEAKER) (test code = 354) CREATININE (BEAKER) 2.35 mg/dL 0.57-1.25 H (test code = 358) GLUCOSE RANDOM 108 mg/dL 70-105 H (BEAKER) (test code = 652) CALCIUM (BEAKER) 8.7 mg/dL 8.4-10.2 (test code = 697) EGFR (BEAKER) (test 21 mL/min/1.73 ESTIMA MADAI GFR IS code = 1092) sq m NOT ACCURATE CREATININE CLEARANCE IN PREDICTING GLOMERULAR FILTRATION RATE . ESTIMATED GFR I S NOT APPLICABLE FOR DIALYSIS PATIEN TS. Broach Setter ID - MITCH Goetzimeyahaira moderately ictericHEPATIC FUNCTION [id number] 06:23:00 Test Item Value Reference Range Interpretation Comments TOTAL PROTEIN (BEAKER) (test code = 5.0 gm/dL 6.0-8.3 L 770) ALBUMIN (BEAKER) (test code = 1145) 3.0 g/dL 3.5-5.0 L BILIRUBIN TOTAL (BEAKER) (test code 5.4 mg/dL 0.2-1.2 H = 377) BILIRUBIN DIRECT (BEAKER) (test 1.8 mg/dL 0.1-0.5 H code = 706) ALKALINE PHOSPHATASE (BEAKER) (test 46 U/L 40-150 code = 346) AST (SGOT) (BEAKER) (test code = 35 U/L 5-34 H 353) ALT (SGPT) (BEAKER) (test code = 13 U/L 6-55 347) Broach Setter ID - MITCH LSpecimen moderately [id number] 06:22:00 Test Item Value Reference Range Interpretation Comments MAGNESIUM (BEAKER) (test code = 1.8 mg/dL 1.6-2.6 627) Broach Setter ID - MITCH LPROTHROMBIN TIME/[id number] 04:22:00 Test Item Value Reference Range Interpretation Comments PROTIME (BEAKER) (test code = 25.8 seconds 11.9-14.2 H 759) INR (BEAKER) (test code = 370) 2.4 <=5.9 Effective 12/23/2018: PT Reference Range ChangeNew: 11.9-14.2 Previous: 11.7- 14.7RECOMMENDED COUMADIN/WARFARIN INR THERAPY RANGESSTANDARD DOSE: 2.0-3.0 Includes: PROPHYLAXIS for venous thrombosis, systemic embolization; TREATMENT for venous thrombosis and/or pulmonary embolus.HIGH RISK: Target INR is2.5-3.5 for patients wiht mechanical heart valves.Blood Culture - Routine (Right Venipuncture)2020-01-24 23:00:00 Test Item Value Reference Range Interpretation Comments Result (test code = No growth in 5 days 6463-4) [facility] HospitalBLOOD [id number] 23:00:00 Test Item Value Reference Range Interpretation Comments CULTURE (BEAKER) (test No growth in 5 days code = 1095) BLOOD [id number] 23:00:00 Test Item Value Reference Range Interpretation Comments CULTURE (BEAKER) (test No growth in 5 days code = 1095) DLCO (single breath diffusion)2020-01-24 10:41:00Epifanio Giles RRT, SALES EXEC 01/24/2020 10:52 [facility] PFT CHARTING REPORT Infection Control/Hand Hygiene procedures followed throughout the encounter with patient: YesPatient Identification Method: Patient name verified on armband, and Medical record on armband, Is the order complete?: Yes Account ID#: [id number] Name: Cici Calderon Birthdate: 1955 Age: 64 y.o. Sex: female Admission Date: 01/14/2020 Patient Status: Inpatient Reasons/Symptom for having the Test?: a history/complaint of a dyspnea Type of study/treatment ordered by physician: Lung volume and Single Breath DLCO Lab Results Component Value Date HGB 8.7 (L) 01/24/2020 Ranges: Adult Male 13 - 16.8 g/dl Adult Female 12 - 15 g/dl 6 Minute Walk (read only) 01/23/2020 01/24/2020 01/24/2020 Pulse 55 51 54 SpO2 96 96 94 StudyDate: 01/24/2020 Study Time: 1041 ASSESSMENT History & Physical Mode of Arrival: Ambulatory Pulse: 56 Resp: 18 SPO2: 96 % RA Pain Assessment Pain:None TESTING/THERAPEUTICS Medications ordered or required for procedure: N/A PT EDUCATION/INSTRUCTIONS Barriers to learning: No known barriers to learning. Learning need identified: Yes, Patient/Family/Guradian was informed of the ordered study by the physician Barriers to performing study or treatment: Patient has no known disability to perform the study or treatment. DISCHARGE The study wascompleted in accordance with the physician's order and patient released from the lab without adverseoutcome.[facility] Hospital[facility]ulmonary Funct Lab [id number] 10:41:00Epifanio Giles, [employer] SALES REPRESENTATIVE, SALES EXEC 01/24/2020 10:52 [facility] PFT CHARTING REPORT Infection Control/Hand Hygiene procedures followed throughout the encounter with patient: YesPatient Identification Method: Patient name verified on armband, and Medical record on armband, Is the order complete?: Yes Account ID#: [id number] Name: Cici Calderon Birthdate: 1955 Age: 64 y.o. Sex: female Admission Date: 01/14/2020 Patient Status: Inpatient Reasons/Symptom for having the Test?: a history/complaint of a dyspnea Type of study/treatment ordered by physician: Lung volume and Single Breath DLCO Lab Results Component Value Date HGB 8.7 (L) 01/24/2020 Ranges: Adult Male 13 - 16.8 g/dl Adult Female 12 - 15 g/dl 6 Minute Walk (read only) 01/23/2020 01/24/2020 01/24/2020 Pulse 55 51 54 SpO2 96 96 94 StudyDate: 01/24/2020 Study Time: 1041 ASSESSMENT History & Physical Mode of Arrival: Ambulatory Pulse: 56 Resp: 18 SPO2: 96 % RA Pain Assessment Pain:None TESTING/THERAPEUTICS Medications ordered or required for procedure: N/A PT EDUCATION/INSTRUCTIONS Barriers to learning: No known barriers to learning. Learning need identified: Yes, Patient /Family/Guradian was informed of the ordered study by the physician Barriers to performing study or treatment: Patient has no known disability to perform the study or treatment. DISCHARGE The study wascompleted in accordance with the physician's order and patient released from the lab without adverseoutcome.[facility] HospitalLu [id number] 10:41:00Epifanio Giles, [employer] SALES REPRESENTATIVE, SALES EXEC 01/24/2020 10:52 [facility] PFT CHARTING REPORT Infection Control/Hand Hyg iene procedures followed throughout the encounter with patient: YesPatient Identification Method: Patient name verified on armband, and Medical record on armband, Is the order complete?: Yes Account ID#: [id number] Name: Cici Calderon Birthdate: 1955 Age: 64 y.o. Sex: female Admission Date: 01/14/2020 Patient Status: Inpatient Reasons/Symptom for having the Test?: a history/complaint of a dyspnea Type of study/treatment ordered by physician: Lung volume and Single Breath DLCO Lab Results Component Value Date HGB 8.7 (L) 01/24/2020 Ranges: Adult Male 13 - 16.8 g/dl Adult Female 12 - 15 g/dl 6 Minute Walk (read only) 01/23/2020 01/24/2020 01/24/2020 Pulse 55 51 54 SpO2 96 96 94 StudyDate: 01/24/2020 Study Time: 1041 ASSESSMENT History & Physical Mode of Arrival: Ambulatory Pulse: 56 Resp: 18 SPO2: 96 % RA Pain Assessment Pain:None TESTING/THERAPEUTICS Medications ordered or required for procedure: N/A PT EDUCATION/INSTRUCTIONS Barriers to learning: No known barriers to learning. Learning need identified: Yes, Patient/Family/Guradian was informed of the ordered study by the physician Barriers to performing study or treatment: Patient has no known disability to perform the study or treatment. DISCHARGE The study wascompleted in accordance with the physician's order and patient released from the lab without adverseoutcome.[facility]6 MINUTE WALK(FOR LUNG TRANSPLANT ONLY)2020-01-24 10:20:00Janina Meehan, [employer] SALES REPRESENTATIVE, SALES EXEC 01/24/2020 2:39 [facility] PFT CHARTING REPORT Infection Control/Hand Hygiene procedures followed throughout the encounter with patient: YesPatient Identification Method: Patient name verified on armband, and Medical record on armband, Is the order complete?: Account ID#: [id number] Name: Cici Calderon Birthdate: 1 09/08/1954 Age: 64 y.o. Sex: female Admission Date: 01/14/2020 Patient Status: Inpatient Reasons/Symptom for having the Test?: surgical clearance Type of study/treatment ordered by physician: 6 minute walk Lab Results Component Value Date HGB 8.7 (L) 01/24/2020 Ranges: Adult Male 13 - 16.8 g/dl Adult Female 12 - 15 g/dl 6 Minute Walk (read only) 01/24/2020 01/24/2020 01/24/2020 BP Pre - - - Start Time - - - Benson Perceived Exertion Scale Pre - - - Ordering Physician - - - Interval 12 - - Pulse 69 56 59 SpO2 96 96 95 Supplemental O2 Flow Activity 0 - -Activity Walking - - Total Distance (in mts) 137 - - BP Post 109/53 - - Tank Pulled? N - - Tank Carried? Y - - End Time 10:26 AM - - Benson Perceived Exertion Scale Post 0 - - Study Date: 01/24/20 Study Time: 1020 ASSESSMENT History & Physical Mode of Arrival: Wheel chair Pulse:59 Resp: 18 SPO2: 92 % on RA Pain Assessment Pain:None TESTING/THERAPEUTICS Medications ordered or required for procedure: N/A PT EDUCATION/INSTRUCTIONS Barriersto learning: No known barriers to learning. Learning need identified: Yes, Patient/Family/Guradian was informed of the ordered study by the physician Barriers to performing study or treatment: Patienthas no known disability to perform the study or treatment. DISCHARGE The study was completed in accordance with the physician's order and patient released from the lab without adverse outcome.[facility] HospitalU/S, [id number] 09:43:00 Referring: Dr. Rowdy Christie to be ordered:->Body Fluid Culture (w/Gram Stain, C\\T\\S)Labs marko ordered:->Cell CountReason for exam:->Acute Kidney Injury - rule out SBP - can remove volume of up to 4-5 L (given ANDERS)Should this be performed at the bedside?->YesFINAL REPORT Ultrasound guided paracentesis Clinical History: Ascites. Sedation: None. Mission Worker: Christine Ward PA-C Supervising Physician: Natan Chisholm MD Floor Sweeper: None. Estimated Blood Loss: < 1 mL. Specimen: 3700 mL of clear yellow fluid, samples sent to laboratory. Technique: Informed consent was obtained. The risks of pain, bleeding, infection, bowel perforation, injury to adjacent structures, and adverse medication reactions were discussed with the patient. After informed consent was obtained, the patient's abdomen was scanned. Theright lower quadrant of the abdomen was selected for paracentesis. After the largest fluid pocket area was marked, and the anterior abdominal wall was evaluated with color Doppler to exclude presence of blood vessels traversing the area, the skin was prepped and draped in the usual sterile manner. After local anesthesia was achieved with lidocaine, a 5 Setswana one-step catheter was advanced into theperitoneal cavity under ultrasound guidance. After completion of drainage, the catheter was removed.There was no evidence of complication. Impression:Successful ultrasound guided paracentesis. Signed:Natan Chisholm Verified Date/Time: 01/24/2020 09:43:05 Reading Location: [address] Ultrasound Reading Room US [id number] 09:43:00Interface, External Ris In - 01/24/2020 9:45 AM CDTFINAL REPORT Ultrasound guided paracentesis Clinical History: Ascites. Sedation: None. Mission Worker: Christine Ward PA-C Supervising Physician: Natan Chisholm MD Floor Sweeper: None. Estimated Blood Loss: < 1 mL. Specimen: 3700 mL of clear yellow fluid, samples sent to laboratory. Technique: Informed consent was obtained. The risks of pain, bleeding, infection, bowel perforation, injury to adjacent structures, and adverse medication reactions were discussed with the patient. After informed consent was obtained, the patient's abdomen was scanned. The right lower quadrant of the abdomen was selectedfor paracentesis. After the largest fluid pocket area was marked, and the anterior abdominal wall was evaluated with color Doppler to exclude presence of blood vessels traversing the area, the skin was prepped and draped in the usual sterile manner. After local anesthesia was achieved with lidocaine, a 5 Setswana one-step catheter was advanced into the peritoneal cavity under ultrasound guidance. After completion of drainage, the catheter was removed. There was no evidence of complication. Impression:Successful ultrasound guided paracentesis. Signed: Natan Chisholm MDReport Verified Date/Time: 12/27 09:43:05 Reading Location: [place] [id number] Ultrasound Reading [facility] [id number] 06:18:00 Test Item Value Reference Range Interpretation Comments SODIUM (BEAKER) 139 meq/L 136-145 (test code = 381) POTASSIUM (BEAKER) 3.4 meq/L 3.5-5.1 L (test code = 379) CHLORIDE (BEAKER) 106 meq/L 98-107 (test code = 382) CO2 (BEAKER) (test 25 meq/L code = 355) BLOOD UREA NITROGEN 35 mg/dL 7-21 H (BEAKER) (test code = 354) CREATININE (BEAKER) 2.77 mg/dL 0.57-1.25 H (test code = 358) GLUCOSE RANDOM 96 mg/dL 70-105 (BEAKER) (test code = 652) CALCIUM (BEAKER) 8.6 mg/dL 8.4-10.2 (test code = 697) EGFR (BEAKER) (test 17 mL/min/1.73 ESTIMA MADAI GFR IS code = 1092) sq m NOT ACCURATE CREATININE CLEARANCE IN PREDICTING GLOMERULAR FILTRATION RATE . ESTIMATED GFR I S NOT APPLICABLE FOR DIALYSIS PATIEN TS. Broach Setter ID - MITCH LSpecimen moderately [id number] 05:38:00 Test Item Value Reference Range Interpretation Comments PHOSPHORUS (BEAKER) (test code = 2.8 mg/dL 2.3-4.7 604) Broach Setter ID - MITCH [id number] 05:38:00 Test Item Value Reference Range Interpretation Comments MAGNESIUM (BEAKER) (test code = 1.8 mg/dL 1.6-2.6 627) Broach Setter ID - MITCH LHEPATIC FUNCTION [id number] 05:38:00 Test Item Value Reference Range Interpretation Comments TOTAL PROTEIN (BEAKER) (test code = 5.1 gm/dL 6.0-8.3 L 770) ALBUMIN (BEAKER) (test code = 1145) 3.2 g/dL 3.5-5.0 L BILIRUBIN TOTAL (BEAKER) (test code 5.6 mg/dL 0.2-1.2 H = 377) BILIRUBIN DIRECT (BEAKER) (test 1.9 mg/dL 0.1-0.5 H code = 706) ALKALINE PHOSPHATASE (BEAKER) (test 50 U/L 40-150 code = 346) AST (SGOT) (BEAKER) (test code = 36 U/L 5-34 H 353) ALT (SGPT) (BEAKER) (test code = 11 U/L 6-55 347) Broach Setter ID - MITCH RUTHERFORDpecimen moderately ictericCALCIUM, [id number] 04:56:00 Test Item Value Reference Range Interpretation Comments CALCIUM IONIZED (BEAKER) (test 1.09 mmol/L 1.12-1.27 L code = 698) PH, BLOOD (BEAKER) (test code = 7.43 1810) PROTHROMBIN [id number] 04:48:00 Test Item Value Reference Range Interpretation Comments PROTIME (BEAKER) (test code = 27.8 seconds 11.9-14.2 H 759) INR (BEAKER) (test code = 370) 2.7 <=5.9 Effective 12/23/2018: PT Reference Range ChangeNew: 11.9-14.2 Previous: 11.7- 14.7RECOMMENDED COUMADIN/WARFARIN INR THERAPY RANGESSTANDARD DOSE: 2.0-3.0 Includes: PROPHYLAXIS for venous thrombosis, systemic embolization; TREATMENT for venous thrombosis and/or pulmonary embolus.HIGH RISK: Target INR is2.5-3.5 for patients wiht mechanical heart valves.CBC W/PLT COUNT & AUTO [id number] 04:36:00 Test Item Value Reference Range Interpretation Comments WHITE BLOOD CELL COUNT (BEAKER) 2.2 K/ L 3.5-10.5 L (test code = 775) RED BLOOD CELL COUNT (BEAKER) 2.40 M/ L 3.93-5.22 L (test code = 761) HEMOGLOBIN (BEAKER) (test code = 8.7 GM/DL 11.2-15.7 L 410) HEMATOCRIT (BEAKER) (test code = 26.4 % 34.1-44.9 L 411) MEAN CORPUSCULAR VOLUME (BEAKER) 110.0 fL 79.4-94.8 H (test code = 753) MEAN CORPUSCULAR HEMOGLOBIN 36.3 pg 25.6-32.2 H (BEAKER) (test code = 751) MEAN CORPUSCULAR HEMOGLOBIN CONC 33.0 GM/DL 32.2-35.5 (BEAKER) (test code = 752) RED CELL DISTRIBUTION WIDTH 25.2 % 11.7-14.4 H (BEAKER) (test code = 412) PLATELET COUNT (BEAKER) (test code 33 K/CU MM 150-450 L = 756) MEAN PLATELET VOLUME (BEAKER) 11.4 fL 9.4-12.3 (test code = 754) NUCLEATED RED BLOOD CELLS (BEAKER) 0 /100 WBC 0-0 (test code = 413) NEUTROPHILS RELATIVE PERCENT 54 % (BEAKER) (test code = 429) LYMPHOCYTES RELATIVE PERCENT 30 % (BEAKER) (test code = 430) MONOCYTES RELATIVE PERCENT 10 % (BEAKER) (test code = 431) EOSINOPHILS RELATIVE PERCENT 3 % (BEAKER) (test code = 432) BASOPHILS RELATIVE PERCENT 1 % (BEAKER) (test code = 437) NEUTROPHILS ABSOLUTE COUNT 1.19 K/ L 1.56-6.13 L (BEAKER) (test code = 670) LYMPHOCYTES ABSOLUTE COUNT 0.66 K/ L 1.18-3.74 L (BEAKER) (test code = 414) MONOCYTES ABSOLUTE COUNT (BEAKER) 0.22 K/ L 0.24-0.36 L (test code = 415) EOSINOPHILS ABSOLUTE COUNT 0.07 K/ L 0.04-0.36 (BEAKER) (test code = 416) BASOPHILS ABSOLUTE COUNT (BEAKER) 0.01 K/ L 0.01-0.08 (test code = 417) IMMATURE GRANULOCYTES-RELATIVE 3 % 0-1 H PERCENT (BEAKER) (test code = 2801) Prepare Leuko-Red [id number] 23:54:00 Test Item Value Reference Range Interpretation Comments CROSSMATCH (test code = 2264) COMPATIBLE Unit ABO (test code = A Pos 7360088) UNIT NUMBER (test code = [id number] 934-0) Status (test code = 7127678) TX_TIMEINCHART Blood Bank Product (test code RED BLOOD CELLS = 2263) PRODUCT CODE (test code = R4920R64 933-2) [facility] Hospital[facility] antibody [id number] 18:06:00 Test Item Value Reference Range Interpretation Comments Rubeola Ab, 235 AU/mL REFERENCE RANGE : Igg (test code <13.50 AU/mL = 77782-9) AU/mL Interpretation ==== <13.50 Negative 13.50-16.49 Equivocal >16.49 Positive A posi tive result indicate s that the patient hasantibody to measles virus. It does notdifferentiat e between an acti ve or past infection. The clinical diagno sis must be interpr eted inconjunction w ith clinical signs and symptoms ofthe patient. For additional information, pl ease refer tohttp://educat ion.[facility] stDiagnostics.c om/faq/ LNQ834(This rosa k is being provided for informational/e ducatio nal purposes on ly.) VALENTE (test code Performing Lab = VALENTE) *QDID [facility] [address] [place] [address] Sudhakar Hargrove MD [facility] HospitalMitochondria M2 Antibody (IgG)2020-01-23 13:50:00 Test Item Value Reference Range Interpretation Comments Mitochondria M2 Ab <20.0 See Note: U Reference (test code = Range:NEGATIVE: ) < OR = 20.0EQUIVOCAL: 20.1-24.9POSITI V E: > OR = 25.0 VALENTE (test code = Performing Lab VALENTE) EZ [facility] [id number] [place] [address] Mark Encarnacion MD, PhD, AMINA [facility] HospitalMumps antibody, [id number] 13:38:00 Test Item Value Reference Range Interpretation Comments Mumps Ab Igg >300.00 AU/mL REFERENCE RANGE : <9.00 (test code = AU/mL ) Interpretation< 9.00 Negative9.0 0-10.99 Equivocal>10. 99 Positive A pos itive result indicate s that the patient hasanti body to mumps virus. It does not differentiatebe tween an active or past infection. The clinicaldia gnosis must be interpreted in conjunction wit hclinical signs and sympt oms of the patient. VALENTE (test Performing Lab code = VALENTE) *[facility]DID [facility] [address] [place] [address] Sudhakar Hargrove MD [facility] HospitalCBC W/PLT COUNT & AUTO [id number] 12:26:00 Test Item Value Reference Range Interpretation Comments WHITE BLOOD CELL COUNT 1.5 K/ L 3.5-10.5 L (BEAKER) (test code = 775) RED BLOOD CELL COUNT 2.07 M/ L 3.93-5.22 L (BEAKER) (test code = 761) HEMOGLOBIN (BEAKER) 7.4 GM/DL 11.2-15.7 L (test code = 410) HEMATOCRIT (BEAKER) 23.2 % 34.1-44.9 L (test code = 411) MEAN CORPUSCULAR 112.1 fL 79.4-94.8 H Discordant MCV result VOLUME (BEAKER) (test compar ed to previous code = 753) result; clinica l correlation req uired. MEAN CORPUSCULAR 35.7 pg 25.6-32.2 H HEMOGLOBIN (BEAKER) (test code = 751) MEAN CORPUSCULAR 31.9 GM/DL 32.2-35.5 L HEMOGLOBIN CONC (BEAKER) (test code = 752) RED CELL DISTRIBUTION 25.8 % 11.7-14.4 H WIDTH (BEAKER) (test code = 412) PLATELET COUNT 26 K/CU MM 150-450 L (BEAKER) (test code = 756) MEAN PLATELET VOLUME 11.1 fL 9.4-12.3 (BEAKER) (test code = 754) NUCLEATED RED BLOOD 0 /100 WBC 0-0 CELLS (BEAKER) (test code = 413) (CELLAVISION MANUAL DIFF)2020-01-23 12:26:00 Test Item Value Reference Range Interpretation Comments NEUTROPHILS - REL 64 % (CELLAVISION)(BEAKER) (test code = 2816) LYMPHOCYTES - REL 28 % (CELLAVISION)(BEAKER) (test code = 2817) MONOCYTES - REL 4 % (CELLAVISION)(BEAKER) (test code = 2818) BASOPHILS - REL 2 % (CELLAVISION)(BEAKER) (test code = 2820) METAMYELOCYTES - REL 2 % 0-0 H (CELLAVISION)(BEAKER) (test code = 2821) NEUTROPHILS - ABS 0.96 K/ul 1.56-6.13 L (CELLAVISION)(BEAKER) (test code = 2830) LYMPHOCYTES - ABS 0.42 K/ul 1.18-3.74 L (CELLAVISION)(BEAKER) (test code = 2831) MONOCYTES - ABS 0.06 K/uL 0.24-0.36 L (CELLAVISION)(BEAKER) (test code = 2832) BASOPHILS - ABS 0.03 K/uL 0.01-0.08 (CELLAVISION)(BEAKER) (test code = 2835) METAMYELOCYTES - ABS 0.03 K/uL 0.00-0.00 H (CELLAVISION)(BEAKER) (test code = 2836) TOTAL COUNTED (BEAKER) (test code 100 = 1351) WBC MORPHOLOGY (BEAKER) (test Normal code = 487) GIANT PLATELETS (BEAKER) (test Present code = 313) LARGE PLT(BEAKER) (test code = Present 2156) POLYCHROMATOPHILLIC RBCS(BEAKER) 1+ few (test code = 478) HYPOCHROMIA (BEAKER) (test code = 1+ few 963) ANISOCYTOSIS (BEAKER) (test code 2+ moderate = 961) MACROCYTES (BEAKER) (test code = 2+ moderate 964) POIKILOCYTES (BEAKER) (test code 2+ moderate = 966) ELLIPTOCYTES (BEAKER) (test code 2+ moderate = 962) OVALOCYTES (BEAKER) (test code = 2+ moderate 477) TEAR DROP CELLS (BEAKER) (test 1+ few code = 481) SARAH CELLS (BEAKER) (test code = 1+ few 474) BASOPHILIC STIPPLING (BEAKER) Present (test code = 473) ARTIFACT (CELLAVISION)(BEAKER) Present (test code = 3432) PLATELET CONCENTRATION Decreased (CELLAVISION)(BEAKER) (test code = 3438) Broach Setter ID - [id number] ID - Charo Jordna comments: Slide comments: BASIC METABOLIC [id number] 07:18:00 Test Item Value Reference Range Interpretation Comments SODIUM (BEAKER) 139 meq/L 136-145 (test code = 381) POTASSIUM (BEAKER) 3.5 meq/L 3.5-5.1 Specimen slightly (test code = 379) hemolyzed CHLORIDE (BEAKER) 106 meq/L 98-107 (test code = 382) CO2 (BEAKER) (test 23 meq/L 22-29 code = 355) BLOOD UREA NITROGEN 42 mg/dL 7-21 H (BEAKER) (test code = 354) CREATININE (BEAKER) 3.02 mg/dL 0.57-1.25 H Specimen slightly (test code = 358) hemolyzed GLUCOSE RANDOM 113 mg/dL 70-105 H (BEAKER) (test code = 652) CALCIUM (BEAKER) 8.5 mg/dL 8.4-10.2 (test code = 697) EGFR (BEAKER) (test 16 mL/min/1.73 ESTIMA MADAI GFR IS code = 1092) sq m NOT ACCURATE CREATININE CLEARANCE IN PREDICTING GLOMERULAR FILTRATION RATE . ESTIMATED GFR I S NOT APPLICABLE FOR DIALYSIS PATIEN TS. Broach Setter ID - MITCH LSpecimen moderately [id number] 07:17:00 Test Item Value Reference Range Interpretation Comments MAGNESIUM (BEAKER) 1.6 mg/dL 1.6-2.6 Specimen slightly (test code = 627) hemolyzed Broach Setter ID - MITCH [id number] 07:17:00 Test Item Value Reference Range Interpretation Comments PHOSPHORUS (BEAKER) 2.4 mg/dL 2.3-4.7 Specimen slightly (test code = 604) hemolyzed Broach Setter ID Mercedes MEYER LHEPATIC FUNCTION [id number] 07:17:00 Test Item Value Reference Range Interpretation Comments TOTAL PROTEIN (BEAKER) 5.2 gm/dL 6.0-8.3 L Speci men slightly (test code = 770) hemolyzed ALBUMIN (BEAKER) (test 3.3 g/dL 3.5-5.0 L Speci men slightly code = 1145) hemolyzed BILIRUBIN TOTAL 6.0 mg/dL 0.2-1.2 H Specimen sli ghtly (BEAKER) (test code = hemoly zed 377) BILIRUBIN DIRECT 2.0 mg/dL 0.1-0.5 H Specimen sl ightly (BEAKER) (test code = hemoly zed 706) ALKALINE PHOSPHATASE 57 U/L 40-150 (BEAKER) (test code = 346) AST (SGOT) (BEAKER) 34 U/L 5-34 Specimen slightly (test code = 353) hemolyzed ALT (SGPT) (BEAKER) 12 U/L 6-55 Specimen slightly (test code = 347) hemolyzed Broach Setter ID - MITCH LSpecimen moderately ictericB-type Natriuretic Factor (BNP) 2020-01-23 06:55:00 Test Item Value Reference Range Interpretation Comments BNP (test code = 45271-9) 2179 pg/mL 0-100 H VALENTE (test code = VALENTE) Broach Setter ID - MITCH L Lab Interpretation (test Abnormal code = 34134-0) [facility] HospitalB-TYPE NATRIURETIC FACTOR (BNP)2020-01-23 06:55:00 Test Item Value Reference Range Interpretation Comments B-TYPE NATRIURETIC PEPTIDE 2179 pg/mL 0-100 H (BEAKER) (test code = 700) Broach Setter ID - MITCH LCALCIUM, [id number] 06:31:00 Test Item Value Reference Range Interpretation Comments CALCIUM IONIZED (BEAKER) (test 1.07 mmol/L 1.12-1.27 L code = 698) PH, BLOOD (BEAKER) (test code = 7.45 1810) PROTHROMBIN [id number] 06:00:00 Test Item Value Reference Range Interpretation Comments PROTIME (BEAKER) (test code = 27.4 seconds 11.9-14.2 H 759) INR (BEAKER) (test code = 370) 2.6 <=5.9 Effective 12/23/2018: PT Reference Range ChangeNew: 11.9-14.2 Previous: 11.7- 14.7RECOMMENDED COUMADIN/WARFARIN INR THERAPY RANGESSTANDARD DOSE: 2.0-3.0 Includes: PROPHYLAXIS for venous thrombosis, systemic embolization; TREATMENT for venous thrombosis and/or pulmonary embolus.HIGH RISK: Target INR is2.5-3.5 for patients wiht mechanical heart valves.Prepare Leuko-Red [id number] 23:54:00 Test Item Value Reference Range Interpretation Comments Unit ABO (test code = 8253247) O Pos UNIT NUMBER (test code = [id number] 934-0) Status (test code = 2660015) TX_TIMEINCHART Blood Bank Product (test code PLATELETS = 2263) PRODUCT CODE (test code = F2785G26 933-2) [facility] HospitalCBC [facility]/PLT COUNT & AUTO [id number] 10:35:00 Test Item Value Reference Range Interpretation Comments WHITE BLOOD CELL COUNT (BEAKER) 1.4 K/ L 3.5-10.5 L (test code = 775) RED BLOOD CELL COUNT (BEAKER) 1.66 M/ L 3.93-5.22 L (test code = 761) HEMOGLOBIN (BEAKER) (test code = 6.4 GM/DL 11.2-15.7 L 410) HEMATOCRIT (BEAKER) (test code = 20.1 % 34.1-44.9 L 411) MEAN CORPUSCULAR VOLUME (BEAKER) 121.1 fL 79.4-94.8 H (test code = 753) MEAN CORPUSCULAR HEMOGLOBIN 38.6 pg 25.6-32.2 H (BEAKER) (test code = 751) MEAN CORPUSCULAR HEMOGLOBIN CONC 31.8 GM/DL 32.2-35.5 L (BEAKER) (test code = 752) RED CELL DISTRIBUTION WIDTH 18.6 % 11.7-14.4 H (BEAKER) (test code = 412) PLATELET COUNT (BEAKER) (test code 29 K/CU MM 150-450 L = 756) MEAN PLATELET VOLUME (BEAKER) 11.1 fL 9.4-12.3 (test code = 754) NUCLEATED RED BLOOD CELLS (BEAKER) 0 /100 WBC 0-0 (test code = 413) (CELLAVISION MANUAL DIFF)2020-01-22 10:35:00 Test Item Value Reference Range Interpretation Comments NEUTROPHILS - REL 78 % (CELLAVISION)(BEAKER) (test code = 2816) LYMPHOCYTES - REL 15 % (CELLAVISION)(BEAKER) (test code = 2817) MONOCYTES - REL 4 % (CELLAVISION)(BEAKER) (test code = 2818) EOSINOPHILS - REL 2 % (CELLAVISION)(BEAKER) (test code = 2819) BANDS - REL (CELLAVISION)(BEAKER) 1 % 0-10 (test code = 2826) NEUTROPHILS - ABS 1.09 K/ul 1.56-6.13 L (CELLAVISION)(BEAKER) (test code = 2830) LYMPHOCYTES - ABS 0.21 K/ul 1.18-3.74 L (CELLAVISION)(BEAKER) (test code = 2831) MONOCYTES - ABS 0.06 K/uL 0.24-0.36 L (CELLAVISION)(BEAKER) (test code = 2832) EOSINOPHILS - ABS 0.03 K/uL 0.04-0.36 L (CELLAVISION)(BEAKER) (test code = 2834) BANDS - ABS (CELLAVISION)(BEAKER) 0.01 K/uL 0.00-0.80 (test code = 2840) TOTAL COUNTED (BEAKER) (test code = 100 1351) WBC MORPHOLOGY (BEAKER) (test code Normal = 487) PLT MORPHOLOGY (BEAKER) (test code Normal = 486) ANISOCYTOSIS (BEAKER) (test code = 1+ few 961) MACROCYTES (BEAKER) (test code = 1+ few 964) POIKILOCYTES (BEAKER) (test code = 1+ few 966) OVALOCYTES (BEAKER) (test code = 1+ few 477) BASOPHILIC STIPPLING (BEAKER) (test Present code = 473) ARTIFACT (CELLAVISION)(BEAKER) Present (test code = 3432) PLATELET CONCENTRATION Decreased (CELLAVISION)(BEAKER) (test code = 3438) Broach Setter ID - [id number] ID - Lizett OverholtUser comments: Slide comments: [id number] 10:05:00 Test Item Value Reference Range Interpretation Comments Cortisol, Total (test code 1.6 ug/dL 3.7-19.4 L = 2755) VALENTE (test code = VALENTE) Broach Setter ID - MITCH [place] Lab Interpretation (test Abnormal code = 02434-7) [facility] HospitalCORTISOL2020-06-27 10:05:00 Test Item Value Reference Range Interpretation Comments CORTISOL, TOTAL (BEAKER) (test code 1.6 ug/dL 3.7-19.4 L = 2755) Broach Setter ID - MITCH LDirect AHG (KRISTI)/Direct [id number] 07:49:00 Test Item Value Reference Range Interpretation Comments Direct AHG-IGG (test code = 1006-6) NEGATIVE Direct AHG-C3B, C3D (test code = NEGATVIE 1003-3) [facility] HospitalABORH, [id number] 07:37:00 Test Item Value Reference Range Interpretation Comments ABO Grouping (test code = 2588) A Rh Factor (test code = 2589) POS [facility] HospitalCALCIUM, [id number] 06:31:00 Test Item Value Reference Range Interpretation Comments CALCIUM IONIZED (BEAKER) (test 1.10 mmol/L 1.12-1.27 L code = 698) PH, BLOOD (BEAKER) (test code = 7.44 1810) BASIC METABOLIC [id number] 06:20:00 Test Item Value Reference Range Interpretation Comments SODIUM (BEAKER) 138 meq/L 136-145 (test code = 381) POTASSIUM (BEAKER) 3.8 meq/L 3.5-5.1 (test code = 379) CHLORIDE (BEAKER) 105 meq/L 98-107 (test code = 382) CO2 (BEAKER) (test 24 meq/L 22-29 code = 355) BLOOD UREA NITROGEN 47 mg/dL 7-21 H (BEAKER) (test code = 354) CREATININE (BEAKER) 3.43 mg/dL 0.57-1.25 H (test code = 358) GLUCOSE RANDOM 109 mg/dL 70-105 H (BEAKER) (test code = 652) CALCIUM (BEAKER) 8.8 mg/dL 8.4-10.2 (test code = 697) EGFR (BEAKER) (test 13 mL/min/1.73 ESTIMA MADAI GFR IS code = 1092) sq m NOT ACCURATE CREATININE CLEARANCE IN PREDICTING GLOMERULAR FILTRATION RATE . ESTIMATED GFR I S NOT APPLICABLE FOR DIALYSIS PATIEN TS. Broach Setter ID - PIAYA LSpecimen moderately [id number] 06:12:00 Test Item Value Reference Range Interpretation Comments MAGNESIUM (BEAKER) (test code = 1.7 mg/dL 1.6-2.6 627) Broach Setter ID - PIAYA LHEPATIC FUNCTION [id number] 06:12:00 Test Item Value Reference Range Interpretation Comments TOTAL PROTEIN (BEAKER) (test code = 5.5 gm/dL 6.0-8.3 L 770) ALBUMIN (BEAKER) (test code = 1145) 3.7 g/dL 3.5-5.0 BILIRUBIN TOTAL (BEAKER) (test code 7.5 mg/dL 0.2-1.2 H = 377) BILIRUBIN DIRECT (BEAKER) (test 2.6 mg/dL 0.1-0.5 H code = 706) ALKALINE PHOSPHATASE (BEAKER) (test 45 U/L 40-150 code = 346) AST (SGOT) (BEAKER) (test code = 26 U/L 5-34 353) ALT (SGPT) (BEAKER) (test code = 10 U/L 6-55 347) Broach Setter ID - MITCH Jane moderately ictericPROTHROMBIN [id number] 05:48:00 Test Item Value Reference Range Interpretation Comments PROTIME (BEAKER) (test code = 26.5 seconds 11.9-14.2 H 759) INR (BEAKER) (test code = 370) 2.5 <=5.9 Effective 12/23/2018: PT Reference Range ChangeNew: 11.9-14.2 Previous: 11.7- 14.7RECOMMENDED COUMADIN/WARFARIN INR THERAPY RANGESSTANDARD DOSE: 2.0-3.0 Includes: PROPHYLAXIS for venous thrombosis, systemic embolization; TREATMENT for venous thrombosis and/or pulmonary embolus.HIGH RISK: Target INR is2.5-3.5 for patients wiht mechanical heart valves.Renin, [id number] 22:50:00 Test Item Value Reference Range Interpretation Comments PRA,LC/MS/MS 1.51 ng/mL/h 0.25-5.82 This test was developed (test code = and its analyti steven 9570271) performance characteristics havebeen determined by [facility].It h as not been cleared or approved by FDA. This as say has been validatedp ursuant to the CLIA reg ulations and is used for clinical purposes. VALENTE (test Performing Lab code = VALENTE) EZ [employer] [facility] [address] [place] [address] Mark Encarnacion MD, PhD, AMINA [facility] HospitalBody fluid cell count with [id number] 18:33:00 Test Item Value Reference Range Interpretation Comments Appearance (test code = 9335-1) Hazy Clear A Color (test code = 6824-7) Cele Colorless, Straw A RBCs (test code = 95182-7) 4000 <=1 /cu mm H Adjusted WBC Count (test code = 86 <=5 /cu mm H 68045-6) Lining Cells (test code = 1 <=1 /cu mm 77243-8) % Segs (test code = 79776-7) 7 % % Lymphs (test code = 49949-1) 83 % % Monos (test code = 00381-8) 10 % % Eos (test code = 94327-2) 0 % % Baso (test code = 69021-9) 0 % Container Body Fluid (test code Sterile Vial = 2873) Lab Interpretation (test code = Abnormal 22342-7) [facility] HospitalBODY FLUID CELL COUNT WITH [id number] 18:33:00 Test Item Value Reference Range Interpretation Comments APPEARANCE FLUID (BEAKER) (test Hazy Clear A code = 510) COLOR FLUID (BEAKER) (test code Cele Colorless, Straw A = 511) RBC FLUID (BEAKER) (test code = 4000 /cu mm <=1 H 513) ADJUSTED WBC FLUID (BEAKER) 86 /cu mm <=5 H (test code = 1691) LINING CELLS (BEAKER) (test 1 /cu mm <=1 code = 1590) NEUTROPHILS FLUID (BEAKER) 7 % (test code = 1656) LYMPHS FLUID (BEAKER) (test 83 % code = 488) MONO/MACROPHAGE FLUID (BEAKER) 10 % (test code = 489) EOSINOPHILS FLUID (BEAKER) 0 % (test code = 491) BASO FLUID (BEAKER) (test code 0 % = 492) CONTAINER BODY FLUID (BEAKER) Sterile Vial (test code = 2873) Peripheral Blood Smear - Hold [id number] 15:19:00 Test Item Value Reference Range Interpretation Comments Peripheral Smear Save (test code = saved 1815) [facility] HospitalPERIPHERAL BLOOD SMEAR - HOLD [id number] 15:19:00 Test Item Value Reference Range Interpretation Comments PERIPHERAL SMEAR SAVE (BEAKER) (test saved code = 1815) [id number] 14:41:00 Test Item Value Reference Interpretation Comments Range Aldosterone (test 22 ng/dL Adult Ref erence code = 0105999) Ranges for Aldosterone: Upright 8:00-10 :00 am < or = 28 ng/ dL Upright 4:00-6: 00 pm < or = 21 ng/ dL Supine 8:00-10 :00 am 3-16 ng/dL Th is test was developed a nd its analytical perf ormance characteristics havebeen determ ined by [facility] .It has not been cleare d or approved by FDA . This assay has been validatedpursua nt to the CLIA regula tions and is used for clinical purpos es. VALENTE (test code = Performing Lab VALENTE) EZ [employer] [facility] [address] [place] [address] Mark Encarnacion MD, PhD, AMINA [facility] [id number] 13:05:00 Test Item Value Reference Range Interpretation Comments T-Spot TB (test code = 82784-5) Negative Neg Ctrl Spot Count (test code = 0 51694-9) Panel A Spot (test code = 68066-3) 0 Panel B Spot (test code = 50730-1) [address] (test code = 0 15126-2) Scan Result (test code = 4569255) [facility] SPOT [id number] 13:05:00 Test Item Value Reference Range Interpretation Comments T-SPOT TB (BEAKER) (test code = Negative 1683) NEG CONTROL SPOT COUNT (BEAKER) 0 (test code = 1684) PANEL A SPOT (BEAKER) (test code = 0 1685) PANEL B SPOT (BEAKER) (test code = 0 1686) POS CONTROL SPOT CT (BEAKER) (test 0 code = 1687) SCAN RESULT (test code = 0266651) BLOOD [id number] 13:00:00 Test Item Value Reference Range Interpretation Comments CULTURE (BEAKER) (test No growth in 5 days code = 1095) BLOOD [id number] 12:00:00 Test Item Value Reference Range Interpretation Comments CULTURE (BEAKER) (test No growth in 5 days code = 1095) [id number] 10:25:00 Test Item Value Reference Range Interpretation Comments CORTISOL, TOTAL (BEAKER) (test code 5.1 ug/dL 3.7-19.4 = 2755) Broach Setter ID - TUAN CCOMPREHENSIVE METABOLIC [id number] 10:23:00 Test Item Value Reference Range Interpretation Comments TOTAL PROTEIN 5.3 gm/dL 6.0-8.3 L (BEAKER) (test code = 770) ALBUMIN (BEAKER) 3.5 g/dL 3.5-5.0 (test code = 1145) ALKALINE PHOSPHATASE 41 U/L 40-150 (BEAKER) (test code = 346) BILIRUBIN TOTAL 8.2 mg/dL 0.2-1.2 H (BEAKER) (test code = 377) SODIUM (BEAKER) (test 141 meq/L 136-145 code = 381) POTASSIUM (BEAKER) 4.2 meq/L 3.5-5.1 (test code = 379) CHLORIDE (BEAKER) 109 meq/L 98-107 H (test code = 382) CO2 (BEAKER) (test 25 meq/L 22-29 code = 355) BLOOD UREA NITROGEN 47 mg/dL 7-21 H (BEAKER) (test code = 354) CREATININE (BEAKER) 3.72 mg/dL 0.57-1.25 H (test code = 358) GLUCOSE RANDOM 126 mg/dL 70-105 H (BEAKER) (test code = 652) CALCIUM (BEAKER) 8.9 mg/dL 8.4-10.2 (test code = 697) AST (SGOT) (BEAKER) 30 U/L 5-34 (test code = 353) ALT (SGPT) (BEAKER) 12 U/L 6-55 (test code = 347) EGFR (BEAKER) (test 12 mL/min/1.73 ESTIMA MADAI GFR IS code = 1092) sq m NOT ACCURATE CREATININE CLEARANCE IN PREDICTING GLOMERULAR FILTRATION RATE . ESTIMATED GFR I S NOT APPLICABLE FOR DIALYSIS PATIEN TS. Broach Setter ID - JUL CSpecimen moderately ictericVaricella zoster antibody, IgG 2020-01-21 10:15:00 Test Item Value Reference Range Interpretation Comments Varicella IgG (test 3.6 code = 79488-3) VALENTE (test code = VALENTE) VARICELLA ZOSTER RESULT INTERPRETATIONS: <=0.8 Al Nonreactive: Presumed non-immune to VZV 0.9-1.0 Al Equivocal >=1.1 Al Reactive: Presumed immune to VZV [facility], [id number] 10:15:00 Test Item Value Reference Range Interpretation Comments Rubella IgG Quant (test 127.0 <8.0 IU/mL H code = 8014-3) VALENTE (test code = VALENTE) Rubella IgG Result Interpretation: </= 7.0 IU/mL Negative - Presumed non-immune 8.0 - 9.9 IU/mL Equivocal >= 10.0 IU/mL Positive - Presumed immune Lab Interpretation (test Abnormal code = 76440-1) [facility]LL[facility] ANTIBODY, [id number] 10:15:00 Test Item Value Reference Range Interpretation Comments RUBELLA IGG QUANTITATION (BEAKER) 127.0 IU/mL <8.0 H (test code = 572) Rubella IgG Result Interpretation: </= 7.0 IU/mL Negative - Presumed non- immune 8.0 - 9.9 IU/mL Equivocal >= 10.0 IU/mL Positive - Presumed immune VARICELLA ZOSTER ANTIBODY, [id number] 10:15:00 Test Item Value Reference Range Interpretation Comments VARICELLA ZOSTER IGG (AL) (BEAKER) 3.6 (test code = 3197) VARICELLA ZOSTER RESULT INTERPRETATIONS: <=0.8 Al Nonreactive: Presumed non-immune to VZV 0.9-1.0 Al Equivocal >=1.1 Al Reactive: Presumed immune to VZVReticulocyte [id number] 10:12:00 Test Item Value Reference Range Interpretation Comments % Retic (test code = 5.3 % 0.5-1.7 H 54317-1) VALENTE (test code = VALENTE) Broach Setter ID - [id number] Lab Interpretation (test Abnormal code = 39818-0) [facility] HospitalRETICULOCYTE [id number] 10:12:00 Test Item Value Reference Range Interpretation Comments RETICULOCYTE COUNT PCT (BEAKER) (test 5.3 % 0.5-1.7 H code = 575) Broach Setter ID - [id number] 10:06:00 Test Item Value Reference Range Interpretation Comments PHOSPHORUS (BEAKER) (test code = 3.1 mg/dL 2.3-4.7 604) Broach Setter ID - TUAN [id number] 10:06:00 Test Item Value Reference Range Interpretation Comments MAGNESIUM (BEAKER) (test code = 1.7 mg/dL 1.6-2.6 627) Broach Setter ID - TUAN CHEPATIC FUNCTION [id number] 10:06:00 Test Item Value Reference Range Interpretation Comments TOTAL PROTEIN (BEAKER) (test code = 5.3 gm/dL 6.0-8.3 L 770) ALBUMIN (BEAKER) (test code = 1145) 3.5 g/dL 3.5-5.0 BILIRUBIN TOTAL (BEAKER) (test code 8.2 mg/dL 0.2-1.2 H = 377) BILIRUBIN DIRECT (BEAKER) (test 2.6 mg/dL 0.1-0.5 H code = 706) ALKALINE PHOSPHATASE (BEAKER) (test 41 U/L 40-150 code = 346) AST (SGOT) (BEAKER) (test code = 30 U/L 5-34 353) ALT (SGPT) (BEAKER) (test code = 12 U/L 6-55 347) Broach Setter ID - TUAN CSpecimen moderately ictericRAD, CHEST, 1 VIEW, NON DEPT 2020-01-21 10:03:00Referring: Dr. Rowdy Zhang for exam:->EdemaShould this be performed at the bedside?->YesFINAL REPORT INDICATION: Edema COMPARISON: January 20, 2020 TECHNIQUE: Single frontal view of the chest. FINDINGS: Lungs and pleura: Increased coarse bilateral interstitial opacities, left greater than right concerning for worsening interstitial edema No effusion.Heart and mediastinum: Normal heart size. Unremarkable mediastinal contours.Osseous structures: No acute abnormality.Other: None. IMPRESSION: Slight interval worsening of interstitial edema Signed: Karen Walker Verified Date/Time: 01/21/2020 10:03:32 Reading Location: [facility] Reading Room XR chest 1 view portable / [id number] 10:03:00 Interface, External Ris In - 01/21/2020 10:05 AM CDTFINAL REPORT INDICATION: Edema COMPARISON: January 20, 2020 TECHNIQUE: Single frontal view of the chest. FINDINGS: Lungs and pleura: Increased coarse bilateral interstitial opacities, left greater than right concerning for worsening interstitial edema No effusion.Heart and mediastinum: Normal heart size. Unremarkable mediastinal contours.Osseous structures: No acute abnormality.Other: None. IMPRESSION: Slight interval worseningof interstitial edema Signed: Karen Walker Verified Date/Time: 01/21/2020 10:03:32 Reading Location: [facility] Reading Room [facility] W/PLT COUNT & AUTO [id number] 09:59:00 Test Item Value Reference Range Interpretation Comments WHITE BLOOD CELL COUNT (BEAKER) 2.1 K/ L 3.5-10.5 L (test code = 775) RED BLOOD CELL COUNT (BEAKER) 1.79 M/ L 3.93-5.22 L (test code = 761) HEMOGLOBIN (BEAKER) (test code = 7.0 GM/DL 11.2-15.7 L 410) HEMATOCRIT (BEAKER) (test code = 21.9 % 34.1-44.9 L 411) MEAN CORPUSCULAR VOLUME (BEAKER) 122.3 fL 79.4-94.8 H (test code = 753) MEAN CORPUSCULAR HEMOGLOBIN 39.1 pg 25.6-32.2 H (BEAKER) (test code = 751) MEAN CORPUSCULAR HEMOGLOBIN CONC 32.0 GM/DL 32.2-35.5 L (BEAKER) (test code = 752) RED CELL DISTRIBUTION WIDTH 18.6 % 11.7-14.4 H (BEAKER) (test code = 412) PLATELET COUNT (BEAKER) (test code 33 K/CU MM 150-450 L = 756) MEAN PLATELET VOLUME (BEAKER) 10.1 fL 9.4-12.3 (test code = 754) NUCLEATED RED BLOOD CELLS (BEAKER) 0 /100 WBC 0-0 (test code = 413) NEUTROPHILS RELATIVE PERCENT 78 % (BEAKER) (test code = 429) LYMPHOCYTES RELATIVE PERCENT 14 % (BEAKER) (test code = 430) MONOCYTES RELATIVE PERCENT 6 % (BEAKER) (test code = 431) EOSINOPHILS RELATIVE PERCENT 1 % (BEAKER) (test code = 432) BASOPHILS RELATIVE PERCENT 1 % (BEAKER) (test code = 437) NEUTROPHILS ABSOLUTE COUNT 1.63 K/ L 1.56-6.13 (BEAKER) (test code = 670) LYMPHOCYTES ABSOLUTE COUNT 0.28 K/ L 1.18-3.74 L (BEAKER) (test code = 414) MONOCYTES ABSOLUTE COUNT (BEAKER) 0.12 K/ L 0.24-0.36 L (test code = 415) EOSINOPHILS ABSOLUTE COUNT 0.02 K/ L 0.04-0.36 L (BEAKER) (test code = 416) BASOPHILS ABSOLUTE COUNT (BEAKER) 0.01 K/ L 0.01-0.08 (test code = 417) IMMATURE GRANULOCYTES-RELATIVE 1 % 0-1 PERCENT (BEAKER) (test code = 2801) PROTHROMBIN TIME/[id number] 09:53:00 Test Item Value Reference Range Interpretation Comments PROTIME (BEAKER) (test code = 24.6 seconds 11.9-14.2 H 759) INR (BEAKER) (test code = 370) 2.3 <=5.9 Effective 12/23/2018: PT Reference Range ChangeNew: 11.9-14.2 Previous: 11.7- 14.7RECOMMENDED COUMADIN/WARFARIN INR THERAPY RANGESSTANDARD DOSE: 2.0-3.0 Includes: PROPHYLAXIS for venous thrombosis, systemic embolization; TREATMENT for venous thrombosis and/or pulmonary embolus.HIGH RISK: Target INR is2.5-3.5 for patients wiht mechanical heart valves.MR, ABDOMEN, WITHOUT CONTRAST 2020-01-21 07:51:00Referring: Dr. Row[facility]Prem[facility] TECHNIQUE: MRI of the abdomen WITHOUT intravenous contrast. INDICATION: Adrenal mass. COMPARISON: CT 01/19/2020 MRI 05/10/2016. FINDINGS: Exam is markedly limited due to large volume ascites and lack of intravenous contrast. LOWER THORAX: Unremarkable. LIVER: Cirrhotic morphology of liver.. No focal hepatic lesions within limitations of this noncontrast exam. BILIARY: Gallbladder is unremarkable. No biliary ductal dilatation or filling defect.SPLEEN: Spleen is enlarged measuring 15 cm in craniocaudal dimension..PANCREAS: No focal masses or ductal dilatation. ADRENALS: No significant interval change of the mildly T2 hyperintense/T1 hyperintense left adrenal lesion measuring 3.4 x 2.3 cm. This is unchanged in size since previous exam in 2015. On the prior exam the lesion did not demonstrate enhancement. The lesion is isointense on but in and opposed phase images..KIDNEYS/URETERS: No hydronephrosis or solid mass lesions. PERITONEUM/RETROPERITONEUM: Large volume a scites..LYMPH NODES: No lymphadenopathy.VESSELS: Evaluation of the vasculature is limited on this noncontrast exam.. GI TRACT: There is a hiatal hernia. There is susceptibility artifact from the clips in the proximal duodenum and at the GE junction.. BONES AND SOFT TISSUES: There is diffuse body wall edema.. Degenerative changes are noted in the spine. IMPRESSION:Markedly limited exam. Stable indeterminate 3.4 cm left adrenal lesion unchanged in size since 2016. Based on prior exam this likely represents left adrenal cyst or pseudocyst containing hemorrhagic/proteinaceous fluid. Cirrhosis with sequela of portal hypertension including large volume ascites P Signed: John Crocker MDReport Verified Date/Time: 01/21/2020 07:51:30 Reading Location: [facility] Diagnostic Imaging Reading Room - [place] [address] MR abdomen without IV contrast 2020-01-21 07:51:00Interface, External Ris In - 01/21/2020 7:53 AM CDTFINAL REPORT TECHNIQUE: MRI of the abdomen WITHOUT intravenous contrast. INDICATION: Adrenal mass. COMPARISON: CT 01/19/2020 MRI 05/10/2016. FINDINGS: Exam is markedly limited due to large volume ascites and lack of intravenouscontrast. LOWER THORAX: Unremarkable. LIVER: Cirrhotic morphology of liver.. No focal hepatic lesions within limitations of this noncontrast exam. BILIARY: Gallbladder is unremarkable. No biliary ductal dilatation or filling defect.SPLEEN: Spleen is enlarged measuring 15 cm in craniocaudal dimension..P ANCREAS: No focal masses or ductal dilatation. ADRENALS: No significant interval change of the mildly T2 hyperintense/T1 hyperintense left adrenal lesion measuring 3.4 x 2.3 cm. This is unchanged in size since previous exam in 2016. On the prior exam the lesion did not demonstrate enhancement. The lesion is isointense on but in and opposed phase images..KIDNEYS/URETERS: No hydronephrosis or solid mass lesions. PERITONEUM/RETROPERITONEUM: Large volume ascites..LYMPH NODES: No lymphadenopathy.VESSELS:Evaluation of the vasculature is limited on this noncontrast exam.. GI TRACT: There is a hiatal hernia. There is susceptibility artifact from the clips in the proximal duodenum and at the GE junction..BONES AND SOFT TISSUES: There is diffuse body wall edema.. Degenerative changes are noted in the spine. IMPRESSION:Markedly limited exam. Stable indeterminate 3.4 cm left adrenal lesion unchanged in size since 2016. Based on prior exam this likely represents left adrenal cyst or pseudocyst containinghemorrhagic/proteinaceous fluid. Cirrhosis with sequela of portal hypertension including large volume ascites P Signed: John Crocker Verified Date/Time: 01/21/2020 07:51:30 Reading Location: [facility] Diagnostic Imaging Reading Room - [place] [address] [address] [facility] Type and screen, [id number] 22:06:00 Test Item Value Reference Range Interpretation Comments ABO/RH AUTOMATED (BEAKER) (test A POSITIVE code = 2260) Ab Scrn (test code = 890-4) NEGATIVE [facility], 1 V[facility], NON [id number] 21:16:00 Referring: Dr. Rowdy Zhang for exam:->JVD and dyspneaShould this be performed at the bedside?->YesFINAL REPORT RAD, CHEST, 1 VIEW, NON DEPT INDICATION: JVD and dyspnea COMPARISON: January 15, 2020 FINDINGS: Portable frontal view of the chest. IMPRESSION: Support Lines: None Lungs and pleura: Increased prominence of coarsened interstitial markings. This may reflect atypical infection or developing edema. No pneumothorax.Heart and mediastinum: Stable contours. Additional findings: None. Signed: JR Stewart Robert MDReport Verified Date/Time: 01/20/2020 21:16:28 Reading Location: [facility] C013 Transitional Reading Room Cryptococcal [id number] 11:36:00 Test Item Value Reference Range Interpretation Comments Cryptococcal Antigen, Serum Negative Negative, Interference (test code = 42627-3) Lab Interpretation (test code Normal = 43229-4) [facility] HospitalCRYPTOCOCCAL [id number] 11:36:00 Test Item Value Reference Range Interpretation Comments CRYPTOCOCCAL ANTIGEN, SERUM Negative Negative, Interference (BEAKER) (test code = 1828) CBC W/PLT COUNT & AUTO [id number] 09:56:00 Test Item Value Reference Range Interpretation Comments WHITE BLOOD CELL COUNT (BEAKER) 1.5 K/ L 3.5-10.5 L (test code = 775) RED BLOOD CELL COUNT (BEAKER) 1.80 M/ L 3.93-5.22 L (test code = 761) HEMOGLOBIN (BEAKER) (test code = 6.9 GM/DL 11.2-15.7 L 410) HEMATOCRIT (BEAKER) (test code = 21.6 % 34.1-44.9 L 411) MEAN CORPUSCULAR VOLUME (BEAKER) 120.0 fL 79.4-94.8 H (test code = 753) MEAN CORPUSCULAR HEMOGLOBIN 38.3 pg 25.6-32.2 H (BEAKER) (test code = 751) MEAN CORPUSCULAR HEMOGLOBIN CONC 31.9 GM/DL 32.2-35.5 L (BEAKER) (test code = 752) RED CELL DISTRIBUTION WIDTH 19.3 % 11.7-14.4 H (BEAKER) (test code = 412) PLATELET COUNT (BEAKER) (test code 19 K/CU MM 150-450 L = 756) MEAN PLATELET VOLUME (BEAKER) 10.5 fL 9.4-12.3 (test code = 754) NUCLEATED RED BLOOD CELLS (BEAKER) 0 /100 WBC 0-0 (test code = 413) (CELLAVISION MANUAL DIFF)2020-01-20 09:56:00 Test Item Value Reference Range Interpretation Comments NEUTROPHILS - REL 77 % (CELLAVISION)(BEAKER) (test code = 2816) LYMPHOCYTES - REL 16 % (CELLAVISION)(BEAKER) (test code = 2817) MONOCYTES - REL 3 % (CELLAVISION)(BEAKER) (test code = 2818) EOSINOPHILS - REL 3 % (CELLAVISION)(BEAKER) (test code = 2819) BANDS - REL (CELLAVISION)(BEAKER) 1 % 0-10 (test code = 2826) NEUTROPHILS - ABS 1.16 K/ul 1.56-6.13 L (CELLAVISION)(BEAKER) (test code = 2830) LYMPHOCYTES - ABS 0.24 K/ul 1.18-3.74 L (CELLAVISION)(BEAKER) (test code = 2831) MONOCYTES - ABS 0.05 K/uL 0.24-0.36 L (CELLAVISION)(BEAKER) (test code = 2832) EOSINOPHILS - ABS 0.05 K/uL 0.04-0.36 (CELLAVISION)(BEAKER) (test code = 2834) BANDS - ABS (CELLAVISION)(BEAKER) 0.02 K/uL 0.00-0.80 (test code = 2840) TOTAL COUNTED (BEAKER) (test code 100 = 1351) MANUAL NRBC PER 100 CELLS 1 /100 WBC 0-0 H (BEAKER) (test code = 1353) WBC MORPHOLOGY (BEAKER) (test Normal code = 487) PLT MORPHOLOGY (BEAKER) (test Normal code = 486) ANISOCYTOSIS (BEAKER) (test code 2+ moderate = 961) MACROCYTES (BEAKER) (test code = 2+ moderate 964) POIKILOCYTES (BEAKER) (test code 1+ few = 966) OVALOCYTES (BEAKER) (test code = 1+ few 477) ARTIFACT (CELLAVISION)(BEAKER) Present (test code = 3432) PLATELET CONCENTRATION Decreased (CELLAVISION)(BEAKER) (test code = 3438) Broach Setter ID - [id number] ID - Lizett OverholtUser comments: Slide comments: COMPREHENSIVE METABOLIC [id number] 05:46:00 Test Item Value Reference Range Interpretation Comments TOTAL PROTEIN 5.6 gm/dL 6.0-8.3 L (BEAKER) (test code = 770) ALBUMIN (BEAKER) 3.9 g/dL 3.5-5.0 (test code = 1145) ALKALINE PHOSPHATASE 43 U/L 40-150 (BEAKER) (test code = 346) BILIRUBIN TOTAL 6.9 mg/dL 0.2-1.2 H (BEAKER) (test code = 377) SODIUM (BEAKER) (test 140 meq/L 136-145 code = 381) POTASSIUM (BEAKER) 4.1 meq/L 3.5-5.1 (test code = 379) CHLORIDE (BEAKER) 109 meq/L 98-107 H (test code = 382) CO2 (BEAKER) (test 23 meq/L 22-29 code = 355) BLOOD UREA NITROGEN 51 mg/dL 7-21 H (BEAKER) (test code = 354) CREATININE (BEAKER) 4.37 mg/dL 0.57-1.25 H (test code = 358) GLUCOSE RANDOM 117 mg/dL 70-105 H (BEAKER) (test code = 652) CALCIUM (BEAKER) 9.0 mg/dL 8.4-10.2 (test code = 697) AST (SGOT) (BEAKER) 25 U/L 5-34 (test code = 353) ALT (SGPT) (BEAKER) 9 U/L 6-55 (test code = 347) EGFR (BEAKER) (test 10 mL/min/1.73 ESTIMA MADAI GFR IS code = 1092) sq m NOT ACCURATE CREATININE CLEARANCE IN PREDICTING GLOMERULAR FILTRATION RATE . ESTIMATED GFR I S NOT APPLICABLE FOR DIALYSIS PATIEN TS. Broach Setter ID - MITCH LSpecimen moderately [id number] 05:37:00 Test Item Value Reference Range Interpretation Comments PHOSPHORUS (BEAKER) (test code = 2.8 mg/dL 2.3-4.7 604) Broach Setter ID - MITCH [id number] 05:37:00 Test Item Value Reference Range Interpretation Comments MAGNESIUM (BEAKER) (test code = 1.9 mg/dL 1.6-2.6 627) Broach Setter ID - MITCH LHEPATIC FUNCTION [id number] 05:37:00 Test Item Value Reference Range Interpretation Comments TOTAL PROTEIN (BEAKER) (test code = 5.6 gm/dL 6.0-8.3 L 770) ALBUMIN (BEAKER) (test code = 1145) 3.9 g/dL 3.5-5.0 BILIRUBIN TOTAL (BEAKER) (test code 6.9 mg/dL 0.2-1.2 H = 377) BILIRUBIN DIRECT (BEAKER) (test 2.5 mg/dL 0.1-0.5 H code = 706) ALKALINE PHOSPHATASE (BEAKER) (test 43 U/L 40-150 code = 346) AST (SGOT) (BEAKER) (test code = 25 U/L 5-34 353) ALT (SGPT) (BEAKER) (test code = 9 U/L 6-55 347) Broach Setter ID - MITCH Jane moderately ictericPROTHROMBIN TIME/[id number] 04:53:00 Test Item Value Reference Range Interpretation Comments PROTIME (BEAKER) (test code = 26.6 seconds 11.9-14.2 H 759) INR (BEAKER) (test code = 370) 2.5 <=5.9 Effective 12/23/2018: PT Reference Range ChangeNew: 11.9-14.2 Previous: 11.7- 14.7RECOMMENDED COUMADIN/WARFARIN INR THERAPY RANGESSTANDARD DOSE: 2.0-3.0 Includes: PROPHYLAXIS for venous thrombosis, systemic embolization; TREATMENT for venous thrombosis and/or pulmonary embolus.HIGH RISK: Target INR is2.5-3.5 for patients wiht mechanical heart valves.CALCIUM, [id number] 04:45:00 Test Item Value Reference Range Interpretation Comments CALCIUM IONIZED (BEAKER) (test 1.14 mmol/L 1.12-1.27 code = 698) PH, BLOOD (BEAKER) (test code = 7.36 1810) Sodium, random [id number] 00:37:00 Test Item Value Reference Range Interpretation Comments Sodium Urine (test <20 meq/L code = 2955-3) VALENTE (test code = Reference Range: No VALENTE) NormalsOperator ID - MITCH L [facility] HospitalOD[facility], RANDOM [id number] 00:37:00 Test Item Value Reference Range Interpretation Comments SODIUM URINE (BEAKER) (test code = < meq/L 243) Reference Range: No NormalsOperator ID - MITCH LUrinalysis w/Microscopic 2020-01-20 00:30:00 Test Item Value Reference Range Interpretation Comments Color, UA (test code = Yellow 5778-6) Clarity, UA (test code = Hazy 5767-9) Specific [place], UA (test 1.017 1.001-1.035 code = 5811-5) pH, UA (test code = 5.5 5.0-8.0 5803-2) Protein, UA (test code = 20 mg/dL Negative A 31940-1) Glucose, UA (test code = Negative Negative 365) Ketones, UA (test code = Negative Negative 2514-8) Bilirubin, UA (test code = Negative Negative 72086-2) Blood, UA (test code = Small Negative A 59146-8) Nitrite, UA (test code = Negative Negative 5802-4) Leukocytes, UA (test code Trace Negative A = 5799-2) Urobilinogen, UA (test 0.2 mg/dL 0.2-1 code = 88371-7) RBC, UA (test code = 1 /HPF 28105-4) WBC, UA (test code = 3 /HPF 5821-4) Bacteria, UA (test code = Rare 03554-6) Squam Epithel, UA (test 3 /HPF code = 02490-7) Hyaline Casts, UA (test 3 /LPF code = 69494-4) Specimen Source (test code = 2795) VALENTE (test code = VALENTE) Broach Setter ID - [auto]Broach Setter ID - tech Lab Interpretation (test Abnormal code = 39914-4) [facility] HospitalUrinalysis w/Microscopic + Reflex to Culture 2020-01-20 00:30:00 Test Item Value Reference Range Interpretation Comments Color, UA (test code = 5778-6) Yellow Clarity, UA (test code = 5767-9) Hazy Specific [place], UA (test code = 1.017 1.001-1.035 5811-5) pH, UA (test code = 5803-2) 5.5 5.0-8.0 Protein, UA (test code = 32323-6) 20 mg/dL Negative A Glucose, UA (test code = 365) Negative Negative Ketones, UA (test code = 2514-8) Negative Negative Bilirubin, UA (test code = 41121-7) Negative Negative Blood, UA (test code = 25614-2) Small Negative A Nitrite, UA (test code = 5802-4) Negative Negative Leukocytes, UA (test code = 5799-2) Trace Negative A Urobilinogen, UA (test code = 0.2 mg/dL 0.2-1 76483-8) RBC, UA (test code = 51899-7) 1 /HPF WBC, UA (test code = 5821-4) 3 /HPF Bacteria, UA (test code = 17085-2) Rare Squam Epithel, UA (test code = 3 /HPF 25277-3) Hyaline Casts, UA (test code = 3 /LPF 29188-5) Specimen Source (test code = 2795) Lab Interpretation (test code = Abnormal 40128-4) [facility]IS W/ REFLEX URINE [id number] 00:30:00 Test Item Value Reference Range Interpretation Comments COLOR (BEAKER) (test code = 470) Yellow CLARITY (BEAKER) (test code = 469) Hazy SPECIFIC GRAVITY UA (BEAKER) (test 1.017 1.001-1.035 code = 468) PH UA (BEAKER) (test code = 467) 5.5 5.0-8.0 PROTEIN UA (BEAKER) (test code = 20 mg/dL Negative A 464) GLUCOSE UA (BEAKER) (test code = Negative Negative 365) KETONES UA (BEAKER) (test code = Negative Negative 371) BILIRUBIN UA (BEAKER) (test code = Negative Negative 462) BLOOD UA (BEAKER) (test code = 461) Small Negative A NITRITE UA (BEAKER) (test code = Negative Negative 465) LEUKOCYTE ESTERASE UA (BEAKER) Trace Negative A (test code = 466) UROBILINOGEN UA (BEAKER) (test code 0.2 mg/dL 0.2-1.0 = 463) RBC UA (BEAKER) (test code = 519) 1 /HPF WBC UA (BEAKER) (test code = 520) 3 /HPF BACTERIA (BEAKER) (test code = 517) Rare SQUAMOUS EPITHELIAL (BEAKER) (test 3 /HPF code = 516) HYALINE CASTS (BEAKER) (test code = 3 /LPF 514) SOURCE(BEAKER) (test code = 2795) URINALYSIS W/ [id number] 00:30:00 Test Item Value Reference Range Interpretation Comments COLOR (BEAKER) (test code = 470) Yellow CLARITY (BEAKER) (test code = 469) Hazy SPECIFIC GRAVITY UA (BEAKER) (test 1.017 1.001-1.035 code = 468) PH UA (BEAKER) (test code = 467) 5.5 5.0-8.0 PROTEIN UA (BEAKER) (test code = 20 mg/dL Negative A 464) GLUCOSE UA (BEAKER) (test code = Negative Negative 365) KETONES UA (BEAKER) (test code = Negative Negative 371) BILIRUBIN UA (BEAKER) (test code = Negative Negative 462) BLOOD UA (BEAKER) (test code = 461) Small Negative A NITRITE UA (BEAKER) (test code = Negative Negative 465) LEUKOCYTE ESTERASE UA (BEAKER) Trace Negative A (test code = 466) UROBILINOGEN UA (BEAKER) (test code 0.2 mg/dL 0.2-1.0 = 463) RBC UA (BEAKER) (test code = 519) 1 /HPF WBC UA (BEAKER) (test code = 520) 3 /HPF BACTERIA (BEAKER) (test code = 517) Rare SQUAMOUS EPITHELIAL (BEAKER) (test 3 /HPF code = 516) HYALINE CASTS (BEAKER) (test code = 3 /LPF 514) SOURCE(BEAKER) (test code = 2795) Broach Setter ID - [auto]Broach Setter ID - techActin (Smooth Muscle) Antibody, IgG 2020-01-19 21:41:00 Test Item Value Reference Interpretation Comments Range Anti-Smooth Muscle 23 U See Note: H Reference Range:<20 Ab (test code = NEGATI VE> OR ) = 20 POSITIVE Antibodies recognizing act in are the main componentof smo oth muscle antibodi es associated withautoimmune liver disease. Actin antibodie s arefound in approximately 7 5% of patients withautoimmune hepatitis (AIH) type 1, mrwhnargwcqti85 % of patients with autoimmune cholangitis,lis sherine mately 30% of patients with primary biliarycirrhosi s, and approximate ly 2% of healthy people.High beatriz ues are closely correlated with AIH type 1. VALENTE (test code = Performing Lab VALENTE) EZ [facility] [address] [place] [address] Mark Encarnacion MD, PhD, AMINA Lab Interpretation Abnormal (test code = 13745-9) [facility] Hospital[facility]inc2020-06-[facility] 20:06:00 Test Item Value Reference Interpretation Comments Range Zinc (test code = 39 60- 130 mcg/dL L This te st was ) developed and i ts analytical performance characteristics have been determined by [facility]. It has not been cleared or appr jean-claude by theA. This assay has been validated pursu ant to the CLIA regulations and is used for clinic al purposes. VALENTE (test code = Performing Lab VALENTE) *BEATRIZ [facility], [id number] [place] [id number] Jorje Jauregui MD, PhD Lab Interpretation Abnormal (test code = 51437-7) [facility] [id number] 16:12:00 Test Item Value Reference Range Interpretation Comments Case Report (test code Surgical Pathology = 104) Report Case: [id number] Authorizing Provider: Sylvie George MD Collected: 01/17/2020 08:15 AM Ordering Location: [address] Received: 01/17/2020 01:50 PM Service Pathologist: Humaira Mendez MD Specimen: Duodenum, biopsy ADDENDUM (test code = [id number]) XxTEUes9sgAAJckFGnZpGg MzNcZnRuYmpcdWMxXGRlZm Mmf4nmq464oRInb9apTHXb ItC2lZPoFKMjuOVdO624GF SmAMwmp6von0NgYZHmzSDw m6N3FCRVltelqHh8fXqmM1 9wf6H5WrutU3idFGNkXORr B3EyRT1uNYBaLry9RMW2ZN B6KRZeOKSxJ4NwHS2wYTVq pEYtBCa6s6qxvNihMIPxEI Y4k1gwIFnfdoCuEH2lwy7p tYi6y6yxhkRaFGKsNZDbqF THAWTrG6GgxAvaWj6dwRn4 aRstPqjzTIV9Qvx1JN4plp 96wth8kNfqZNRqgfivHnQ4 LAobEVEnlebjKWg9WQwkXO SqiNR3VUUnvZAkZ4BdSDFg MZ3xevr8XUS4HUnnKCMwUl U9WAXiqHKjAVRnjMvsSIpo q641IEC3QrZcEI9tH7Wew8 P0dD5poLYdIDIguGCpMwSj HJXujv0ypWIxMZqch4FtJF Y0zxG5fGPsyNWpGZPiPT69 Hktbr6VqSeqvQPW2XXWmaw Rpw4Vob2dyRiVsfqMeM1tp X0JgBWVoHRZnOSVdKoDrmu Alq9Nag6MqkPGtuSu9s1yy UYPsGKZgeWpso4auVSX1FJ HyL8F5lTXqh7ctODqsEYJi aBG5omE3ZFGxmRWqH3DujP 1lPZYsLH5dmie7j8ikYAK0 SLukTVGeYcG9ckU2WVAlzG SpYRSlvKmzGBnir884UIH6 EpDvCZObq5XqF1GfyHugR0 8meIxjA32aOHDivDhpiD0l sAgbzE0wKtGiDpOoXOaxFC JkXHBsYWluXGYxXGZzMjBc bGFuZzEwMzNcaGljaFxmMV wcNoRiKVHlQWucH6kbOyAy LcTcNNDLJHvHJOQXYZ1BEA 1WLJmIMRzHT6BHCCUGUaZJ RVBPUlQgVEhFIEZJTkRJTk dTIElOIFRIRSBERUVQRVIg ERGYJAtPHK9XCJPZYFKBSI 6BW2byDD5IFMsDZnKuZNjB YGIGBaDFCNVAYZvFS5OPTo pccGFyXHFsXHBsYWluXGYw RXUkJfLwhVyxhL6iDePzWa RvDXnpQL2oHAVoS0halLHa GCNeZHYzC5urFcRgwJ5wyL xmMVxmczIwXHBhciAgRFVP BTQVOH1oIZDWUW0OB16SOJ MgQklPUFNZOlxwYXIgICAt YDTFCBGXYXEpQnCIB9CPUc IQKvXWOVElJCPVPH8FYHOB S7ZHPLDfRMYJZ1gTA1CAAh IkK0OyRB9HVYMROLITI0TZ Bz7SQKDPXLhzLBBhGFOeRC 0VUHVFQGSVQaRDKC0NIPVW TElBQyBESVNFQVNFIFNFRU 5ccGFyICAgLSBOTyBHUkFO VUxPTUFTLCBEWVNQTEFTSU VnD1QmDJITUYlHTY6WWUMB RUVOXHBhcn0= DIAGNOSIS (test code = y2nxkOPhQSYfa2hjFBWycN 3220) FuZzEwMzNcZnRuYmpcdWMx QDvjapZgFApvg9XoJ8ArMl AwMFxhbnNpXGRlZmxhbmcx HCPsSME4ugPnOOAcJAneVS HaFGltMe6cuJDvmXqlBmKq OHPkz6arcrTKzfdnnDy1f5 dhNOSqEmG2sBCuMLvsV1wf knIicOYsTEZhIBq8eR74YW QsrK3dnGFsJVqavjSyEvZ1 FZsvDWAuIbL0BHOojDPlQM UqN8hpIAKpTLvlYOCwKSep wIWjFWA8tCwew4H1fFSeaL VmaVydJiStWeDzQAJYt5Xm ZEo5bNncT4IgYGKwCqD0eN QgUGFyYWdyYXBoIEZvbnQ7 wI40VEivzzW6oRYea6Bxd0 5be247vL1woCFtWYH7HANt FWKuoKUiLNEuXVS4UFZiuX FsG6f3QzGurSHjS6D2QbPc uBEnC7M3EaIbjPPwJ6C0Xb JcaWUvCANrjCIsSv1vuFBw rIMqxj0ghc57WDI8y5RtaM dqXRW1GAC9JcNzDj6vaVCa OAQqCU4sYrQphERxIBQwri 11nPzcPOgentPihN7zHyJo ISMtqPEfKITmNZ5cfQWoBE IlkH4snttkEQLfYaDyiuht FYDpqBlmpcKtQv2nsXmiQG E8GLjwB8rddS3uWxU4AWwo J9sktS2mPCh1RMmtzLT3SB VniE7yAH2zcaikj9twAyFe AO3khcuru3hwFuIpPN4tza q6j3skSiXpPV2fiqgoz1qp NzIwXGhlYWRlcnkwXGZvb3 TuzbtrZQSwj4PvV2LtxDkq U81xaUaoQ98vAVBkpCjfgB 2tdDliwB0pHjDrHvZeINkw bFxwbGFpblxmMVxmczIwXG nucjlhQOKpYSogF0krKoJf KAQjvSglZMimb1CeFKDtKE KoXkArGSKNFOPRZZ6pWPUH ZX9ZE80JREJyYqyITJNBMl gzAUKrBNFgZ9GTCFLUAFGZ MTshAnTVU41EGhNXBX1JYX DXRPiWCVIVM6PRLS7PG33Y BJLRSIDWOWeIR5IUXKKaAr 9CCM3GEEAfURDQJFWYAXHR IVfbQBFxxRMgNICfvs29JT Y2XzTpi4G9GWE1TLNuYBIh e4djIHOudYVbIrVrHwWaSc YrFafnzUSuOWXyMjGrm5ly i137fOHzl8iwTYVxDtE2wN VyQLIulVYdF717JDAfAIvj d0pib8BcIKBaiAMqv3H9XB TGygaaxAq3nRufP40lb3J7 ZupzN8ugCOJgFWYaA6PfCJ 9oPFPqGbq3RDH3LWK9ZUYo VZIvV0DhHY5eUDAnmDTrRI q9a0iphAsiFQJzISI7t2xr NOucfzLfQS1xsp6zzOe6t5 xjczEgRGVmYXVsdCBQYXJh G7IrcSusFp5brVy6dImbLr alPXZ2Dbi6SA6yge70ovl0 eRpcGKCgopbtUwW6LXneDR QbmqwmJYr2TEkjOLGnjYA3 PNWaxYXfP5XaRRHdEO8teu f7GTF2IDmrBYGwNaS6KWVh rIDzQUMxwImeDOstn263MQ O7FvKtGZ2oY9Awr3Z3uI2a aXRcZGVmdGFiNzIwXGZvcm 6pvJGeSHgqm9NsJBM9inJ3 iKRjeVGuGHHgSvO9QCupWG 2bvc82MJMhHQL7wx9abYVi kZgceiPppVRtEOsvO8GvHY Zkq261UYIlZ9GrAEEnr1S6 ctIrBwVwNLHvjZQ7dzI7AP PwXY0mdijtr4nmKLkrEPhy OGAmpkU4qjM5JFDwnZJxU8 IhvQ7tPXUqZK3xzhlxn6we XWC3JKyoSLCbGWU2LcHqRI Jyr3Wreqz0OsDgb5TdpWOz PHopX02kx582SZYsvsLuT5 xwbGFpblxwbGFpblxmMFxm uaL5QFFcOFapmlqaKDClUQ zvK1amWkWfSXCwpFauKRfj k6SoORYoDMQdRoYjtSPuWP XxMdg3BOVmvQRtKXIoHoYn G7pfhzyaCbCSEFIey3ydL0 lipWVFdDCxS3UbNVbdoxHq VVyaGWftZAX7UNY1Jq98Ee B2KZWrjk78 CPT Code(s) (test code y3khtPLaJBIjjPUiDwUnWC = 3358) HnQVXzr2ejWZHmmHWpVvOu MzNcZnRuYmpcdWMxXGRlZm Zyp8tzc881gHSyv4zqNYYt MeN6nCPvCVEkhFEnM939j8 fti0bjiyRwzBI4VFVgWAS3 QIfsruJfufS9RBizlBWkLl T0ROllacAlIUaijcKjiiJf Erh6PURfN403UET2zWchs8 dxYQX6ZYHaWIZzOpZxFm4a uXQwR448TJCkPIFPCRHinB a1HPLbxfPdowZooHATb696 F047x8klRVLikhOpnJlTuz suf3dmB464BWHgqFNstrEl IlFvEDLucNXisSH6KRCmUS 8vrzruMoTqLE5oouejNlJl MU7pfhu5GcBbXS2otcblUb RaGQsjZOIrboszYGLol6Fc eadnLE6vP6Tct3V0dP0wdF HrBDFheCXkQmZpNOXiti4j bWTcPXfyz6BwBZJ1nhY9tZ NtdDJdYXOwAQ22Zfojj0Ih WcehRPZ8CVDnjvFsj5Wew2 yjRmMqwcJxQ3dmL5WwWORk VJRaUTUjDuKqhqHkg6Bml8 OmbIQppMm3q3ftWJBqYRFo zMuam7atIIB0FCTaG8R5oV Vip4fvCBbuEZIeoDB6sveh TIizTEZshbF6vvrsSArrWP UcsGH7nfksGCzeQFPpAmW4 klunLYcsQNEkHBQ6AOyxh6 73ESZ1IGeyXizrBKfbURIv bmNvbnRccGduZGVjXHBsYW luXHBsYWluXGYwXGZzMjRc jKzoqJtdrZ7sKzFiTpUkHD hiWO4rKLMkP9yluRTyRWPz JTWpN9lcXsLzpZ3doBmxTL vzipWuTPo2GkS6NVHuoq7= CLINICAL HISTORY (test t2mssAYcLJIfvNZuCwErNU code = 3356) AoBFUyj5efMOQssCTfIlTb MzNcZnRuYmpcdWMxXGRlZm Eqt4sni201jEVgs1eiMAFw SgC0bVYtITJofOYhE636YC CeSNrhl2cda6XuDGUglJOm o0W3KKZMmoeeoTw9jKqpK6 7py5V0PrshR2fsFGXaJTii ZBOmNSkyvVRvSDP5WEWeDK L0WQgzdzGxjqL0BOatvHIi SeE2HTt9a8tuaSfuCWGbHJ O5b1itTUxdduVzQP9efo3l cNq1f4esxoJrYAXxESTloK QFMVKwG0NtqLrlWg5hpKx3 kNhdDlkfVFK4Fuo4OY8ugx 35rls8tPsoHHGweequTlA3 XDdbJHPkvjmeUWf0LAniHK JnbDcyMFxtYXJncjcyMFxt YXJndDcyMFxtYXJnYjcyMF arKECiYUQ4LDwhs631FAK7 WNeqb7oor1ckgUFaJzq0NS EvZqKjIfyiLOkqt4Ofo0ei TOItlh3sVKB1tJZnmRvol0 H1wHGkUVXobNRspyNfBEIt EaK1HVcuMT4aub94JQJkRH T3mf1dzDNnlFvrqnMsxMOc UGzcW0QpKTHcz429KESxJ5 OuIETvh1C3nxVgPzSoVMKv yFE0knB3JSQnHTy1pKFnpt L9ojUxzNZeA4agpJ75LdOa lQRnX7KbfI90TsZgkMEsE8 WrrT60NvTktSLxT0VnrT76 FfBapDNqAVXkhMRpEx0utP DbdWWjo4NlbCEjGVkhR86b y317TDNzhnPcW2gauWWlam xwbGFpblxmMFxmczIwXHFs XHBsYWluXGYwXGZzMjBccG swsJ2qYcSpDtNlQTAUti1b NHI3rkY0TEVbaMQqWAKtJV 0lM18jqLewQomddYW2NLPy AEBsp4kiur9lR07zhMYluV AnPDDlMXWiurOjzV2hfG5f WKErSQqkr4VlbgxoTF1apW lhXHBhcn0= SPECIMEN SOURCE (test s9jewVXpOMNpqMWfTbQxKI code = 3377) NqUFUjo0coHBZiqYQoFbOg MzNcZnRuYmpcdWMxXGRlZm Lpn8xlg923zRMua9phGWXa VxJ6nCTaJOBecHObM912o4 isn3qdilBzzOZ2CRTbXAJ2 RQervbReerC9FPoazSTwBe Y9TEscgcWtXTgmhdMwjuFx Vbj6NWSrM150NZK6tAuiv8 ewOCV3TGQzAMYnAqTtZe8a fSPrF290DURmOFUQIWGyhW l8IJQlwmTujnKbqIUGz889 H865j4hfBYNezvObsFnPva fhy0hxV331SRMwzBBpjgDf ZmZaCDEvqOWzuTD3CHQsMW 3ivvxzLyEyDR5ddrpaUjOv WZ2pqgn5SoWrZZ6rzymuSs WaPGgsNETshipiMYCdu2Gg xtnvQF2bS5Wjc7Y5bH6adG SeHTRagSKsIdMhIACpea3c sZFfBOlie0RhTKA2vzY0jP SydWIgOLQqWE44Hjztd5Tm IclkIWV2DSBfxfTtx0Gss2 xqGsSymuYhL9izM8EoVLEv DUXtGYVwPoEyrzBlj0Kgv2 IzrQOvgGv0h5pkMQAjKDAp rZdan5leBUD5ROZnI2M1iX Etm6veHLpvZRLfdWY8qmwc JYsrDBRwriI8ylpsTJdsNF WzuSF7nskgHZyeQJNvPdO6 octeHTxxAHZkFSL4XSngm2 36DAU6LXpgFtbcLTsvILBq bmNvbnRccGduZGVjXHBsYW luXHBsYWluXGYwXGZzMjRc uRiexNhcfQ0bBeOpGhAvLK ljXK9rAVFmC3epfZUyTOOj QYLwU9vlDtPtfK8afPexUK cxwxWiNNWyLCM3h7UhljSy BwJwaR7yi1tcbZRgpP== GROSS DESCRIPTION (test o4fcnXWzCJSrsKVnJtMpVP code = 3366) AwRSTri1yuJVQgyHMgWtSc MzNcZnRuYmpcdWMxXGRlZm Bww8tcf304eKXkg1grOEUo KdP7nGDoEVOioTJdR241QE XnRImrg4bns2QeTVBdoTDw v9P2ELKHmcclwVp5oBkbB1 5kz7C1GeimM4kkYDOvVVob CHGwLSaaiRNjZPM5EDCdPW A7TEipluZqprV2AYnfaXMc AjX4EHy3o6txxLltIKJeMK T6d7kbYFfadxVfDK6ffq4n nIg3v5normPrTIVpJJJyxY OGZDOnQ7XrjLlqYr7dxQd4 vRulMjpdUTW8Kza2MQ1ijf 99eys0mNeqJTVsbtatDqU8 YWmqYIGjgxcdQXb1CMwfSM JnbDcyMFxtYXJncjcyMFxt YXJndDcyMFxtYXJnYjcyMF bsFCEmZCI9SMato913LAH4 PPtck0vsz4ntpJGwLda3FD KtFnVaCqloJCuxg3Kio8am PTRqbb4lQAE1kRJktTfeb2 H4bEOuDRDzbNDvocQwSNYc CaB2MUibHT6akz58JVIsBS D2tm5huMMaxIllurYdnJEc AXbdZ4PyVTYvm500ADPxM8 CsFWBjc4A8tcXySaCbCEKq zER6ilY6ZCDeGJp6gDGcpn B6sqVtwYWaN9qrxD91FqBw nTKqS9TodW49RnKuaYZdG9 CqvU05OgVuoNMeY9JhzV45 BvGopPKcXGNrzSRfRy7ttM RilLFnf1LfvCSiLPgpR56a d692UFAsfyOiH0chrAQoer xwbGFpblxmMFxmczIwXHFs XHBsYWluXGYwXGZzMjBccG paoE5wVkNbUlJsHSRVTiFM rPEfn7GqZ0hsBL7moYMkgg RsPQw4TPUhjO6sDj1biAPx bS2kILSrHKadNKWbYEKmEt QfaOEoCEmoSIV6rWKsCKJt IDLdZMFyBC05Y2RwetIbFH exIELwIPZksL9lZR29oCSu ciBhbmQgIlxwbGFpblxmMF htcsRfVSU6y4NysrCjAmQu bdWlX23cr1ymxKGbs8Rhr0 4yBTIuii9hyG4wAOqakQGh zaelKZgpwqJgWV57M71xDD yxH888QRUrQOjrjMTcmgfg MFxmczIwICBwaWVjZXMgb2 RmnErsz3OaAJ4sKPD3brou ZyAwLjMgeCAwLjIgeCAwLj SgJ75lTLdblRYmmahmBAlq hoVqZTJmTTEwnRCtvA4coy MkbeYgcZHofPO6TWTgBK18 cKEwkPuzGa0nsS40hT9nGX UluHTgLUCgo20qqH7cFKSy PCPlCSR5WPGhoPtejW4xZg WoLlAzGUHXRA7sJVqKL3Fa XHBhcn0= MICROSCOPIC DESCRIPTION d6vzaXOzAXHpuOIaWvLgMD (test code = 3371) NrWZNtw1rcESUrsMQnOwYj MzNcZnRuYmpcdWMxXGRlZm Qly6wfo222sLRkl7woATBm CxO4dYPlLQZhfXWuJ773t6 bvg0nraoZklIS5IZKmWNE8 LInckaHjrqC3GMbafQPbHv A1QKikbvVvJZhmbsDslgRz Htt2XWEgB452WEO8xKcjw4 ueLSR2DXFyECPtZtDrMi2j wMMbR409AUHcYTHGWPBnjY n8INKaemTdgkXbkCPSt971 Y081a9bmLYHqviXgjSoOqv qde6mcY459OXIbnFSyrfBb IlNjKVZotXDqkOJ4GCHwVS 3bcnvfJxZmIB6zuykqOkAc MI1dacb4UtXqKU7nhzwsHz KuAZnlAXRjlpqeFJUca3Zp feprTH2zG5Kvl3Q5aL0mjZ CxSNUcgKCcTvGsVDSiky3r hEAwZDjms7GpIJN3kpM5iA HpqHZtGLZfJY06Xmtwa7Df DdbrJSO8DLLfkpCkd5Kmz3 vgWjDrknMaC7ggN0YgKYTk JWEoIFHlSyTutsKsb4Vsn2 ZfsWFzcSc5e7jqXUQiDSEo gDmex4fqPFW5DXLyB9J3yV Nkr4sfSFvoYPEicRR8znqf JOipXKLngoU6cdlaAJfsYB PkvSZ4woqpNLwoAOCkLxM1 bvevTNqaHKVsEBJ1CExpb9 54WLV2OEdbAvtnQKfcHRMo bmNvbnRccGduZGVjXHBsYW luXHBsYWluXGYwXGZzMjRc vHzveUfioY2jUwGxNrKnBM syCK2rCFVwP8urmFGyVQOp EEGxD6kyAwYqjY2trZauCA ohbyEjSEEBHzNCDg5VCCsf YXJ9 [facility] [id number] 16:12:00Surgical Pathology Report Case: [id number] Authorizing Provider: Sylvie George MD Collected: 01/17/2020 08:15 AM Ordering Location: [address] Received: 01/17/2020 01:50 PM Service Pathologist: Humaira Mendez MD Specimen: Duodenum, biopsy THIS ADUODENUMIS ISSUED TO REPORT THE FINDINGS IN THE DEEPER LEVELS OF THE BIOPSY AND GIVE THE FINAL DIAGNOSIS: DUODENUM,ENDOSCOPIC BIOPSY: - ECTATIC VESSELS IN THE LAMINA PROPRIA, SUGGESTIVE OF PORTAL DUODENOPATHY - NOFEATURES OF CELIAC DISEASE SEEN - NO GRANULOMAS, DYSPLASIA OR MALIGNANCY SEENAddendum electronically signed by Humaira Mendez MD on 01/19/2020 at 4:12 PMDUODENUM, ENDOSCOPIC BIOPSY:- SUPERFICIAL FRAGMENTS OF SMALL BOWEL MUCOSA WITH GASTRIC FOVEOLAR METAPLASIA Signing Pathologist Direct Phone Line: [phone] signed by Humaira Mendez MD on 01/18/2020 at 3:50 [id number]: upper endoscopy, biopsy and colonoscopy Pre and postop diagnosis: anemiaA. Duodenum; biopsyA. The specimen is received in formalin labeled with the patient's name, accession number and "duodenum" and consists of one garduno-pink mucosal-covered pieces of tissue measuring 0.3 x 0.2 x 0.1cm. The specimen is submitted entirely following filtration in a cassette A1. HS/plPERFORMEDBlood gas, [id number] 16:03:00 Test Item Value Reference Range Interpretation Comments pH, Arterial (test code = 2744-1) 7.42 7.35-7.45 pCO2, Arterial (test code = 36 35- 45 mmHg 2018-8) pO2, Arterial (test code = 78 80- 90 mmHg L 2703-7) O2 Sat, Arterial (test code = 96.2 % 96-97 2708-6) HCO3, Arterial (test code = 23 mmol/L 21-29 1960-4) Base Excess, Arterial (test code -1.9 mmol/L -2-3 = 1925-7) Patient Temperature (test code = 36.1 C 8310-5) FIO2 (test code = 1819) 28 % Lab Interpretation (test code = Abnormal 14381-6) [facility], [id number] 16:03:00 Test Item Value Reference Range Interpretation Comments PH ARTERIAL (BEAKER) (test code = 7.42 7.35-7.45 383) PCO2 ARTERIAL (BEAKER) (test code 36 mmHg 35-45 = 384) PO2 ARTERIAL (BEAKER) (test code 78 mmHg 80-90 L = 385) O2 SATURATION ARTERIAL (BEAKER) 96.2 % 96.0-97.0 (test code = 386) HCO3 ARTERIAL (BEAKER) (test code 23 mmol/L 21-29 = 388) BASE EXCESS ARTERIAL (BEAKER) -1.9 mmol/L -2.0-3.0 (test code = 387) PATIENT TEMPERATURE (BEAKER) 36.1 C (test code = 1818) FIO2 (BEAKER) (test code = 1819) 28.0 % [id number] 15:05:00 Test Item Value Reference Range Interpretation Comments Ceruloplasmin (test code 21 mg/dL 18-53 = [id number]) VALENTE (test code = VALENTE) Performing Lab *BEATRIZ [facility], [address] [place] [address] Jorje Jauregui MD, PhD [facility] HospitalCarbohydrate antigen 19-9 (CA 19-9)2020-01-19 12:51:00 Test Item Value Reference Range Interpretation Comments CA 19-9 32 U/mL <34 This test was (test code = performed using the 92025-8) Siemens Chemiluminescen t method.Values o btained from different assay methods cannot be used interchangeably .CA19-9 levels, regardl ess of value, should n ot be interpreted as absoluteevidenc e of the presence or abs ence of disease. VALENTE (test Performing Lab code = VALENTE) EZ [facility] [address] [place] [address] I Shashank ADRIAN, PhD, AMINA [facility] HospitalPROTHROMBIN TIME/[id number] 11:28:00 Test Item Value Reference Range Interpretation Comments PROTIME (BEAKER) (test code = 24.7 seconds 11.9-14.2 H 759) INR (BEAKER) (test code = 370) 2.3 <=5.9 Effective 12/23/2018: PT Reference Range ChangeNew: 11.9-14.2 Previous: 11.7- 14.7RECOMMENDED COUMADIN/WARFARIN INR THERAPY RANGESSTANDARD DOSE: 2.0-3.0 Includes: PROPHYLAXIS for venous thrombosis, systemic embolization; TREATMENT for venous thrombosis and/or pulmonary embolus.HIGH RISK: Target INR is2.5-3.5 for patients wiht mechanical heart valves.MM, U/S, BREAST, [id number] 09:52:00Referring: Dr. Rowdy Zhang for exam:->liver transplant evaluationFINAL REPORT COMPLETE ULTRASOUND OF BOTH BREASTS AND AXILLA: 01/19/2020 Colorflow and real-time ultrasound of both breasts four quadrants, retroareolar, and axilla regions were performed. Hein scale images of the real-time examination were reviewed. No significant abnormalit ies were seen sonographically in either breast. IMPRESSION: BENIGN The findings have been discussed with the patient. There is no sonographic evidence of malignancy. Correlation with mammography isrecommended. Signed: Jorge Brooks MDRepellis [facility] Verified Date/Time: 01/19/2020 09:52:28 Reading Location:[address] Mammo Reading Room US breast [id number] 09:52:00Interface, External Ris In - 01/19/2020 9:54 AM CDTFINAL REPORT COMPLETE ULT RASOUND OF BOTH BREASTS AND AXILLA: 01/19/2020 Color flow and real-time ultrasound of both breasts four quadrants, retroareolar, and axilla regions were performed. Hein scale images of the real-time examination were reviewed. No significant abnormalities were seen sonographically in either breast. IMPRESSION: BENIGN The findings have been discussed with the patient. There is no sonographic evidence of malignancy. Correlation with mammography is recommended. Signed: Jorge Brooks MDReport Verified Date/Time: 01/19/2020 09:52:28 Reading Location: [address] Mammo Reading [facility], WITHOUT [id number] 08:09:00Referring: Dr. Reno SweattAnesthesia:->NonePlease specify abdominal organs:->AdrenalFINAL REPORT TECHNIQUE: CT of the abdomen WITHOUT intravenous contrast and WITHOUT oral contrast. Dose modulation, iterative reconstruction, and/or weight-based adjustment of themA/kV was utilized to reduce the radiation dose to as low as reasonably achievable. INDICATION: Adrenal nodule. COMPARISON: 05/02/2017, MRI April, ultrasound 01/19/2020 FINDINGS: ABSENCE OF I NTRAVENOUS CONTRAST DECREASES SENSITIVITY FOR DETECTION OF FOCAL LESIONS AND VASCULAR PATHOLOGY. LOWER THORAX: Trace left-sided pleural effusion.. There are patchy ground glass opacities and mild interlobular septal thickening in the left lower lobe and lingula. Reticular opacities in the right lung base likely representing focal fibrosis. Emphysematous changes are noted. HEPATOBILIARY: Cirrhotic shrunken liver. No focal liver lesion on this limited noncontrast exam. Gallbladder is unremarkable. No biliary ductal dilatation.SPLEEN: Spleen is enlarged measuring 14.5 cm in craniocaudal dimension..PANCREAS: No focal masses or ductal dilatation. ADRENALS: 3.5 x 2.7 cm left adrenal nodule with density measuring 30 Hounsfield units. (See axial image 26). The nodule has not really changed in size since April 2017. This lesion appears cystic on the recent ultrasound and did not enhance on the prior contrast-enhanced MRI or CT. The lesions demonstrate increased signal on T1 images suggesting hemorrhagi c/proteinaceous fluid.KIDNEYS/URETERS: No hydronephrosis, stones, or solid mass lesions. PERITONEUM/RETROPERITONEUM: Large volume ascites.LYMPH NODES: No lymphadenopathy.VESSELS: Unremarkable. GI TRACT: No distention or wall thickening. BONES AND SOFT TISSUES: There is mild diffuse body wall edema.. IMPRESSION:Stable indeterminate 3.5 cm left adrenal nodule, unchanged in size since May 16, 2017. Based on comparison with prior imaging this may represent an adrenal cyst or pseudocyst containing hemorrhagic/proteinaceous fluid. Cirrhosis with sequelae of portal hypertension including large volume ascites. Patchy right basilar opacities in the left lower lobe and lingula with trace left-sided pleural effusion concerning for pneumonia. Signed: John Crocker Verified Date/Time: 01/19/2020 08:09:04 Reading Location: [facility] Diagnostic Imaging Reading Room [place] [address] [address] abdomen without IV contrast 2020-01-19 08:09:00Interface, External Ris In - 01/19/2020 8:11 AM CDTFINAL REPORT TECHNIQUE: CT of the abdomen WITHOUT intravenous contrast and WITHOUT oral contrast. Dose modulation, iterative reconstruction, and/or weight-based adjustment of the mA/kV was utilized to reduce the radiation dose to as low as reasonably achievable. INDICATION: Adrenal nodule. COMPARISON: 05/02/2017, MRI April, ultrasound 01/19/2020 FINDINGS: ABSENCE OF INTRAVENOUS CONTRAST DECREASES SENSITIVITY FOR DETECTION OF FOCAL LESIONS AND VASCULAR PATHOLOGY. LOWER THORAX: Trace left-sided pleural effusion.. There are patchy ground glass opacities and mild interlobular septal thickening in the left lower lobe and lingula. Reticular opacities in the right lung base likely representing focal fibrosis. Emphysematous changes are noted. HEPATOBILIARY: Cirrhotic shrunken liver. No focal liver lesion on this limited noncontrast exam. Gallbladder is unremarkable. No biliary ductal dilatation.SPLEEN: Spleen is enlarged measuring 14.5 cm in craniocaudal dimension..PANCREAS: No focal masses or ductal dilatation. ADRENALS: 3.5 x 2.7 cm left adrenal nodule with density measuring 30 Hounsfield units. (See axial image 26). The nodule has not really changed in size since April 2017. This lesion appears cystic on the recent ultrasound and did not enhance on the prior contrast-enhanced MRI or CT. The lesions demonstrate increased signal on T1 images suggesting hemorrhagic/proteinaceous fluid.KIDNEYS/URETERS: No hydrone phrosis, stones, or solid mass lesions. PERITONEUM/RETROPERITONEUM: Large volume ascites.LYMPH NODES: No lymphadenopathy.VESSELS: Unremarkable. GI TRACT: No distention or wall thickening. BONES AND SOFT TISSUES: There is mild diffuse body wall edema.. IMPRESSION:Stable indeterminate 3.5 cm left adrenal nodule, unchanged in size since May 16, 2017. Based on comparison with prior imaging this mayrepresent an adrenal cyst or pseudocyst containing hemorrhagic/proteinaceous fluid. Cirrhosis with sequelae of portal hypertension including large volume ascites. Patchy right basilar opacities in the left lower lobe and lingula with trace left-sided pleural effusion concerning for pneumonia. Signed:John Crocker MDReport Verified Date/Time: 01/19/2020 08:09:04 Reading Location: [facility] Diagnostic Imaging Reading Room - [place] [id number] Electronically signed by: JOHN CROCKER MD on 0 01/19/2020 08:09 [facility], [id number] 07:59:00 Test Item Value Reference Range Interpretation Comments CALCIUM IONIZED (BEAKER) (test 1.10 mmol/L 1.12-1.27 L code = 698) PH, BLOOD (BEAKER) (test code = 7.33 1810) Treadmill tolerance(Non-Nuclear Treadmill)2020-01-19 07:03:57Interface, External Ris In - 01/19/2020 7:04 AM CDTProtocol Name Regadenoson Time In Exercise Phase00:01:00 Max. Systolic BP 129 mmHgMax Diastolic BP 49 mmHgMax Heart Rate 69 BPMMax Predicted Heart Rate 155 BPMReason For Termination Predetermined end point Reason for Test Pre operative cardiac clearance for liver transpl Target HR Formula (220 - Age)*100% Arrhythmias none Resting ECG Normal sinus rhythm Early Precordial transitionST Changes No Significant Changes Overall Impression Indeterminate due to pharmacological stress Chest Pain none HR Response To Exercise BP Response To Exercise midodrineConfirmed by fellow Bc Chávez ([id number]) on 01/18/2020 9:20:19 AMConfirmed by Shaq GARCIA MICHAEL([id number]) on 01/19/2020 7:03:55 [facility] PANEL 2020-01-19 05:21:00 Test Item Value Reference Range Interpretation Comments TOTAL PROTEIN 5.4 gm/dL 6.0-8.3 L (BEAKER) (test code = 770) ALBUMIN (BEAKER) 3.5 g/dL 3.5-5.0 (test code = 1145) ALKALINE PHOSPHATASE 42 U/L 40-150 (BEAKER) (test code = 346) BILIRUBIN TOTAL 6.5 mg/dL 0.2-1.2 H (BEAKER) (test code = 377) SODIUM (BEAKER) (test 138 meq/L 136-145 code = 381) POTASSIUM (BEAKER) 4.1 meq/L 3.5-5.1 (test code = 379) CHLORIDE (BEAKER) 107 meq/L 98-107 (test code = 382) CO2 (BEAKER) (test 22 meq/L 22-29 code = 355) BLOOD UREA NITROGEN 52 mg/dL 7-21 H (BEAKER) (test code = 354) CREATININE (BEAKER) 4.75 mg/dL 0.57-1.25 H (test code = 358) GLUCOSE RANDOM 111 mg/dL 70-105 H (BEAKER) (test code = 652) CALCIUM (BEAKER) 8.8 mg/dL 8.4-10.2 (test code = 697) AST (SGOT) (BEAKER) 27 U/L 5-34 (test code = 353) ALT (SGPT) (BEAKER) 10 U/L 6-55 (test code = 347) EGFR (BEAKER) (test 9 mL/min/1.73 ESTIMAT ED GFR IS code = 1092) sq m NOT ACCURATE CREATININE CLEARANCE IN PREDICTING GLOMERULAR FILTRATION RATE . ESTIMATED GFR I S NOT APPLICABLE FOR DIALYSIS PATIEN TS. Broach Setter ID - LASpecimen moderately [id number] 05:04:00 Test Item Value Reference Range Interpretation Comments PHOSPHORUS (BEAKER) (test code = 3.3 mg/dL 2.3-4.7 604) Broach Setter ID - [id number] 05:04:00 Test Item Value Reference Range Interpretation Comments MAGNESIUM (BEAKER) (test code = 2.0 mg/dL 1.6-2.6 627) Broach Setter ID - LAHEPATIC FUNCTION [id number] 05:04:00 Test Item Value Reference Range Interpretation Comments TOTAL PROTEIN (BEAKER) (test code = 5.4 gm/dL 6.0-8.3 L 770) ALBUMIN (BEAKER) (test code = 1145) 3.5 g/dL 3.5-5.0 BILIRUBIN TOTAL (BEAKER) (test code 6.5 mg/dL 0.2-1.2 H = 377) BILIRUBIN DIRECT (BEAKER) (test 2.1 mg/dL 0.1-0.5 H code = 706) ALKALINE PHOSPHATASE (BEAKER) (test 42 U/L 40-150 code = 346) AST (SGOT) (BEAKER) (test code = 27 U/L 5-34 353) ALT (SGPT) (BEAKER) (test code = 10 U/L 6-55 347) Broach Setter ID - LASpecimen moderately ictericB-TYPE NATRIURETIC FACTOR (BNP) 2020-01-19 04:59:00 Test Item Value Reference Range Interpretation Comments B-TYPE NATRIURETIC PEPTIDE 2455 pg/mL 0-100 H (BEAKER) (test code = 700) Broach Setter ID - EDWIN BCBC W/PLT COUNT & AUTO [id number] 04:46:00 Test Item Value Reference Range Interpretation Comments WHITE BLOOD CELL COUNT 3.0 K/ L 3.5-10.5 L (BEAKER) (test code = 775) RED BLOOD CELL COUNT 1.99 M/ L 3.93-5.22 L (BEAKER) (test code = 761) HEMOGLOBIN (BEAKER) 7.6 GM/DL 11.2-15.7 L (test code = 410) HEMATOCRIT (BEAKER) 23.8 % 34.1-44.9 L (test code = 411) MEAN CORPUSCULAR 119.6 fL 79.4-94.8 H Discordant MCV VOLUME (BEAKER) (test result s compared to code = 753) previous result s; clinical correl ation required. MEAN CORPUSCULAR 38.2 pg 25.6-32.2 H HEMOGLOBIN (BEAKER) (test code = 751) MEAN CORPUSCULAR 31.9 GM/DL 32.2-35.5 L HEMOGLOBIN CONC (BEAKER) (test code = 752) RED CELL DISTRIBUTION 20.2 % 11.7-14.4 H WIDTH (BEAKER) (test code = 412) PLATELET COUNT 33 K/CU MM 150-450 L (BEAKER) (test code = 756) MEAN PLATELET VOLUME 9.7 fL 9.4-12.3 (BEAKER) (test code = 754) NUCLEATED RED BLOOD 0 /100 WBC 0-0 CELLS (BEAKER) (test code = 413) NEUTROPHILS RELATIVE 60 % PERCENT (BEAKER) (test code = 429) LYMPHOCYTES RELATIVE 20 % PERCENT (BEAKER) (test code = 430) MONOCYTES RELATIVE 10 % PERCENT (BEAKER) (test code = 431) EOSINOPHILS RELATIVE 8 % PERCENT (BEAKER) (test code = 432) BASOPHILS RELATIVE 1 % PERCENT (BEAKER) (test code = 437) NEUTROPHILS ABSOLUTE 1.81 K/ L 1.56-6.13 COUNT (BEAKER) (test code = 670) LYMPHOCYTES ABSOLUTE 0.61 K/ L 1.18-3.74 L COUNT (BEAKER) (test code = 414) MONOCYTES ABSOLUTE 0.30 K/ L 0.24-0.36 COUNT (BEAKER) (test code = 415) EOSINOPHILS ABSOLUTE 0.23 K/ L 0.04-0.36 COUNT (BEAKER) (test code = 416) BASOPHILS ABSOLUTE 0.02 K/ L 0.01-0.08 COUNT (BEAKER) (test code = 417) IMMATURE 1 % 0-1 GRANULOCYTES-RELATIVE PERCENT (BEAKER) (test code = 2801) U/S, RENAL, [id number] 01:26:00Referring: Dr. Rowdy Zhang for exam:->Re-examine L Adrenal Mass - unable to safely perform CT or MRIShould this be performed at the bedside?->YesFINAL REPORT Ultrasound of the Kidneys Clinical History: Re-examine L Adrenal Mass - unable to safely perform CT or MRI Discussion: Sonographic evaluation of the kidneys was performed. There is no prior study for direct comparison. Correlation is made with CT abdomen 05/02/2017,outside CT abdomen 08/20/2016 and outside MRI abdomen 05/10/2016. Right kidney: 10.7 x 4.2 x 5.7 cm,with cortical thickness of 1.2 cm. Normal cortical echogenicity. No mass. No shadowing calculus. No hydronephrosis. Left kidney: 11.4 x 5 x 5.6 cm, with cortical thickness of 1.4 cm. Normal cortical echogenicity. No mass. No shadowing calculus. No hydronephrosis. Limited doppler evaluation of bilateral main renal arteries and veins demonstrate patency. Bladder: Not visualized which may be due to decompression. Miscellaneous: 3.7 x 3.1 x 2.3 cm hypoechoic left suprarenal mass without associated hypervascularity. Cirrhotic liver. Large abdominal ascites. Impression: No hydronephrosis.3.7 x 3.1 x 2.3 cm cystic left suprarenal mass indeterminate on the basis of the current exam. Please correlate with reports of prior CT and MRI. Signed: Maira Sneed MDReport Verified Date/Time: 01/19/202001:26:59 US renal [id number] 01:26:00Interface, External Ris In - 01/19/2020 1:29 AM CDTFINAL REPORT Ultrasound of the Kidneys Clinical History: Re-examine L Adrenal Mass - unable to safely perform CT or MRI Discussion: Sonographic evaluation of the kidneys was performed. There is no prior study for direct comparison. Correlation is made with CT abdomen 05/02/2017, outside CT abdomen 08/20/2016 and outside MRI abdomen 05/10/2016. Right kidney: 10.7 x 4.2 x 5.7 cm, with cortical thickness of 1.2 cm. Normal cortical echogenicity. No mass. No shadowing calculus. No hydronephrosis. Left kidney: 11.4 x 5 x 5.6 cm, with cortical thickness of 1.4 cm. Normal cortical echogenicity. No mass. No shadowing calculus. No hydronephrosis. Limited doppler evaluation of bilateral main renal arteries and veins demonstrate patency. Bladder: Not visualized which may be due to decompression. Miscellaneous: 3.7 x 3.1 x 2.3 cm hypoechoic left suprarenal mass without associated hypervascularity. Cirrhotic liver. Large abdominal ascites. Impression: No hydronephrosis.3.7 x 3.1 x 2.3 cm cystic left suprarenal mass indeterminate on the basis of the current exam. Please correlate with reports of prior CT and MRI. Signed: Maira Sneed Verified Date/Time: 01/19/2020 01:26:59 [facility] CenterEosin[facility] [id number] 22:11:00 Test Item Value Reference Range Interpretation Comments Eosinophil Smear (test Rare EOS =less than No EOS seen A code = 06046-8) 5% WBCs seen are EOS Lab Interpretation (test Abnormal code = 79639-9) [facility]EOSIN[facility]HIL SMEAR, [id number] 22:11:00 Test Item Value Reference Range Interpretation Comments EOSINOPHIL SMEAR, URINE Rare EOS =less than No EOS seen A (BEAKER) (test code = 5% WBCs seen are EOS 1851) SODIUM, RANDOM [id number] 22:04:00 Test Item Value Reference Range Interpretation Comments SODIUM URINE (BEAKER) (test code = < meq/L 243) Reference Range: No NormalsOperator ID - EDWIN BCreatinine, random urine 2020-01-18 22:02:00 Test Item Value Reference Range Interpretation Comments Creatinine, Ur 181.3 mg/dL (test code = 2161-8) VALENTE (test code = Reference Range: No VALENTE) NormalsOperator ID - EDWIN B [facility] HospitalProtein, random [id number] 22:02:00 Test Item Value Reference Range Interpretation Comments Protein, Urine (test code 45 mg/dL 0-14 H = 2888-6) VALENTE (test code = VALENTE) Broach Setter ID - EDWIN B Lab Interpretation (test Abnormal code = 86186-6) [facility] HospitalCREATININE, RANDOM [id number] 22:02:00 Test Item Value Reference Range Interpretation Comments CREATININE URINE (BEAKER) (test 181.3 mg/dL code = 375) Reference Range: No NormalsOperator ID - EDWIN BPROTEIN, RANDOM [id number] 22:02:00 Test Item Value Reference Range Interpretation Comments PROTEIN, URINE (BEAKER) (test code = 45 mg/dL 0-14 H 1569) Broach Setter ID - EDWNI BURINALYSIS W/ [id number] 22:02:00 Test Item Value Reference Range Interpretation Comments COLOR (BEAKER) (test Yellow code = 470) CLARITY (BEAKER) (test Hazy code = 469) SPECIFIC GRAVITY UA 1.017 1.001-1.035 (BEAKER) (test code = 468) PH UA (BEAKER) (test 5.5 5.0-8.0 code = 467) PROTEIN UA (BEAKER) 50 mg/dL Negative A (test code = 464) GLUCOSE UA (BEAKER) Negative Negative (test code = 365) KETONES UA (BEAKER) Negative Negative (test code = 371) BILIRUBIN UA (BEAKER) Negative Negative (test code = 462) BLOOD UA (BEAKER) (test Negative Negative code = 461) NITRITE UA (BEAKER) Negative Negative (test code = 465) LEUKOCYTE ESTERASE UA Trace Negative A (BEAKER) (test code = 466) UROBILINOGEN UA (BEAKER) 0.2 mg/dL 0.2-1.0 (test code = 463) RBC UA (BEAKER) (test 2 /HPF code = 519) WBC UA (BEAKER) (test 7 /HPF code = 520) BACTERIA (BEAKER) (test Occasional code = 517) MUCUS (BEAKER) (test Rare code = 1574) SQUAMOUS EPITHELIAL 6 /HPF (BEAKER) (test code = 516) HYALINE CASTS (BEAKER) 16 /LPF (test code = 514) SOURCE(BEAKER) (test Urine, Sterile code = 2795) Collection Broach Setter ID - [auto]Broach Setter ID - techHepatitis B core antibody, [id number] 16:02:00 Test Item Value Reference Range Interpretation Comments Hep B Core Total Ab Nonreactive Nonreactive (test code = 30275-7) VALENTE (test code = VALENTE) Broach Setter ID - CHARO Downs Lab Interpretation (test Normal code = 19808-0) [facility] HospitalHEPATITIS B CORE ANTIBODY, [id number] 16:02:00 Test Item Value Reference Range Interpretation Comments HEPATITIS B CORE TOTAL ANTIBODY Nonreactive Nonreactive (BEAKER) (test code = 497) Broach Setter ID - CHARO FECG 12 [id number] 14:19:40Interface, External Ris In - 01/18/2020 2:19 PM CDTVentricular Rate 62 BPMAtrial Rate 62 BPMP-R Interval 138 msQRS Duration 86 msQ-T Interval 452 msQTC Calculation(Bazett) 458 msP [place] 59 degreesR [place] 32 degreesT [place] 56 degreesNormal sinus rhythmLow voltage QRSNonspecific ST iiplkjgihvf52 JUN 2020 11:05Nonspecific T wave abnormality Nonspecific T wave abnormality, improved inQT has shortenedConfirmed by MD FARHAT, [facility] ([id number]) on 01/18/2020 2:19:38 [facility] Cytomegalovirus antibody, [id number] 13:49:00 Test Item Value Reference Range Interpretation Comments CYTOMEGALOVIRUS, IGG Positive Negative, A (test code = 3429) Equivocal VALENTE (test code = VALENTE) CMV IgG Result Interpretation: </= 0.8 Al Negative 0.9-1.0 Al Equivocal >/=1.1 Al Positive Lab Interpretation (test Abnormal code = 83819-0) [facility] HospitalEBV-VCA antibody, [id number] 13:49:00 Test Item Value Reference Range Interpretation Comments GABRIEL CHING VIRAL Positive Negative, A CAPSID ANTIGEN IGG (test Equivocal code = 3415) VALENTE (test code = VALENTE) Gabriel Ching Viral Capsid Antigen IgG Result Interpretation: </= 0.8 Al Negative 0.9-1.0 Al Equivocal >/= 1.1 Al Positive Lab Interpretation (test Abnormal code = 82332-9) [facility] HospitalEBV-VCA antibody, [id number] 13:49:00 Test Item Value Reference Range Interpretation Comments GABRIEL CHING VIRAL Negative Negative, CAPSID ANTIGEN IGM (test Equivocal code = 3418) VALENTE (test code = VALENTE) Gabriel Ching Viral Capsid Antigen IgM Result Interpretation: </= 0.8 Al Negative 0.9-1.0 Al Equivocal >/= 1.1 Al Positive Lab Interpretation (test Normal code = 22893-5) [facility] HospitalCytomegalovirus antibody, WoF Test Item Value Reference Range Interpretation Comments CMV IGM (test code = Negative Negative, 3437) Equivocal VALENTE (test code = VALENTE) CMV IgM Result Interpretation: </= 0.8 Al Negative 0.9-1.0 Al Equivocal >/= 1.1 Al Positive Lab Interpretation (test Normal code = 26628-5) [facility] HospitalCYTOMEGALOVIRUS ANTIBODY, [id number] 13:49:00 Test Item Value Reference Range Interpretation Comments CYTOMEGALOVIRUS, IGG (BEAKER) Positive Negative, Equivocal A (test code = 3429) CMV IgG Result Interpretation: </= 0.8 Al Negative 0.9-1.0 Al Equivocal >/=1.1 Al PositiveCYTOMEGALOVIRUS ANTIBODY, [id number] 13:49:00 Test Item Value Reference Range Interpretation Comments CYTOMEGALOVIRUS IGM ANTIBODY Negative Negative, Equivocal (BEAKER) (test code = 3437) CMV IgM Result Interpretation: </= 0.8 Al Negative 0.9-1.0 Al Equivocal >/= 1.1 Al PositiveEBV ANTIBODY, [id number] 13:49:00 Test Item Value Reference Range Interpretation Comments GABRIEL CHING VIRAL CAPSID Positive Negative, Equivocal A ANTIGEN IGG (BEAKER) (test code = 3415) Gabriel Ching Viral Capsid Antigen IgG Result Interpretation: </= 0.8 Al Negative 0.9-1.0 Al Equivocal >/= 1.1 Al PositiveEBV ANTIBODY, IGM 2020-01-18 13:49:00 Test Item Value Reference Range Interpretation Comments GABRIEL CHING VIRAL CAPSID Negative Negative, Equivocal ANTIGEN IGM (BEAKER) (test code = 3418) Gabriel Ching Viral Capsid Antigen IgM Result Interpretation: </= 0.8 Al Negative 0.9-1.0 Al Equivocal >/= 1.1 Al [id number] 13:35:00 Test Item Value Reference Range Interpretation Comments T3, Total (test code = 3053-6) 51 ng/dL 48-159 Lab Interpretation (test code = Normal 74201-4) [facility] [id number] 13:35:00 Test Item Value Reference Range Interpretation Comments T3 TOTAL (BEAKER) (test code = 656) 51 ng/dL 48-159 PET/CT, CARDIAC PERF REST AND [id number] 12:45:00Referring: Dr. Rowdy Zhang for exam:->pre op cardiac clearance for liver transplantFINAL REPORT PROCEDURE: MYOCARDIAL PERFUSION PET IMAGING (Rest/Stress)CPT CODE: 04158 INDICATION: Evaluation for liver transplant CARDIOVASCULAR PROFILE:Symptoms: NoneCAD History: NoneRisk Factors: ObesityBMI: 35.2Medications: None STRESS PROTOCOL:Pharmacologic stress was achieved with a 10-second intravenous infusion of regadenoson 0.4 mg. IMAGING PROTOCOL:Limited low-dose CT imaging was performed for attenuation correction. 40.1 mCi of Rb-82 chloride was injected intravenously at rest, and PET images were obtained. Then, 40.2 mCi of Rb-82 chloride was injected intravenouslyat peak stress, and PET images were obtained. REST FINDINGS:HR: 64 /minBP: 119/50 mmHgPrelim. EKG: No rmal sinus rhythm.Perfusion: Normal.Wall Motion: Normal (LVEF 79%).LV Volume: Normal.RV Volume: Normal. STRESS FINDINGS:HR: 69 /min (44% of MPHR)BP: 129/49 mmHgPrelim. EKG: No ischemic changes.Symptoms: None (treatment not required).Perfusion: Normal.Wall Motion: Normal (LVEF 90%).LV Volume: Unchanged from rest. IMPRESSION:1. Normal study.2. Normal myocardial perfusion. 3. Normal global LV function, which does not deteriorate with stress.4. Normal extracardiac tracer distribution.5. There is no prior study for comparison. Signed: Jennifer Melo MDReport Verified Date/Time: 01/18/2020 12:45:40 Reading Location: [address] Reading Room [place] Myocardial Perfusion Pet/CT (Rest & Stress)2020-01-18 12:45:00Interface, External Ris In - 01/18/2020 12:47 PM CDTFINAL REPORT PROCEDURE: MYOCARDIAL PERFUSION PET IMAGING (Rest/Stress)CPT CODE: 89671 INDICATION: Evaluation for liver transplant CARDIOVASCULAR PROFILE:Symptoms: NoneCAD History: NoneRisk Factors: ObesityBMI: 35.2Medications: None STRESS PROTOCOL:Pharmacologic stress was achieved with a 10-second intravenous infusion of regadenoson 0.4 mg. IMAGING PROTOCOL:Limited low-dose CT imaging was performed for attenuation correction. 40.1 mCi of Rb-82 chloride was injected intravenously at rest, and PET images were obtained. Then, 40.2 mCi of Rb-82 chloride was injected intravenously at peak stress, and PET images were obtained. REST FINDINGS:HR: 64 /minBP: 119/50 mmHgPrelim. EKG: Normal sinus rhythm.Perfusion: Normal.Wall Motion:Normal (LVEF 79%).LV Volume: Normal.RV Volume: Normal. STRESS FINDINGS:HR: 69 /min (44% of MPHR)BP: 129/49 mmHgPrelim. EKG: No ischemic changes.Symptoms: None (treatment not required).Perfusion: Normal.Wall Motion: Normal (LVEF 90%).LV Volume: Unchanged from rest. IMPRESSION:1. Normal study.2. Normal myocardial perfusion. 3. Normal global LV function, which does not deteriorate with stress.4. Normal e xtracardiac tracer distribution.5. There is no prior study for comparison. Signed: Jennifer Melo MDReport Verified Date/Time: 01/18/2020 12:45:40 Reading Location: [address] Reading Room [facility] HEPATIC FUNCTION [id number] 10:29:00 Test Item Value Reference Range Interpretation Comments TOTAL PROTEIN (BEAKER) (test code = 5.3 gm/dL 6.0-8.3 L 770) ALBUMIN (BEAKER) (test code = 1145) 3.7 g/dL 3.5-5.0 BILIRUBIN TOTAL (BEAKER) (test code 5.2 mg/dL 0.2-1.2 H = 377) BILIRUBIN DIRECT (BEAKER) (test 1.9 mg/dL 0.1-0.5 H code = 706) ALKALINE PHOSPHATASE (BEAKER) (test 37 U/L 40-150 L code = 346) AST (SGOT) (BEAKER) (test code = 26 U/L 5-34 353) ALT (SGPT) (BEAKER) (test code = 9 U/L 6-55 347) Broach Setter ID - WALDRON FSpecimen moderately ictericCBC W/PLT COUNT & AUTO [id number] 08:43:00 Test Item Value Reference Range Interpretation Comments WHITE BLOOD CELL COUNT 3.4 K/ L 3.5-10.5 L (BEAKER) (test code = 775) RED BLOOD CELL COUNT 1.55 M/ L 3.93-5.22 L (BEAKER) (test code = 761) HEMOGLOBIN (BEAKER) 6.2 GM/DL 11.2-15.7 L (test code = 410) HEMATOCRIT (BEAKER) 19.7 % 34.1-44.9 L (test code = 411) MEAN CORPUSCULAR 127.1 fL 79.4-94.8 H Discordant MCV result VOLUME (BEAKER) (test compar ed to previous code = 753) result; clinica l correlation req uired. MEAN CORPUSCULAR 40.0 pg 25.6-32.2 H HEMOGLOBIN (BEAKER) (test code = 751) MEAN CORPUSCULAR 31.5 GM/DL 32.2-35.5 L HEMOGLOBIN CONC (BEAKER) (test code = 752) RED CELL DISTRIBUTION 15.6 % 11.7-14.4 H WIDTH (BEAKER) (test code = 412) PLATELET COUNT 27 K/CU MM 150-450 L (BEAKER) (test code = 756) MEAN PLATELET VOLUME 10.8 fL 9.4-12.3 (BEAKER) (test code = 754) NUCLEATED RED BLOOD 0 /100 WBC 0-0 CELLS (BEAKER) (test code = 413) (CELLAVISION MANUAL DIFF)2020-01-18 08:43:00 Test Item Value Reference Range Interpretation Comments NEUTROPHILS - REL 73 % (CELLAVISION)(BEAKER) (test code = 2816) LYMPHOCYTES - REL 19 % (CELLAVISION)(BEAKER) (test code = 2817) MONOCYTES - REL 2 % (CELLAVISION)(BEAKER) (test code = 2818) EOSINOPHILS - REL 2 % (CELLAVISION)(BEAKER) (test code = 2819) BANDS - REL (CELLAVISION)(BEAKER) 4 % 0-10 (test code = 2826) NEUTROPHILS - ABS 2.48 K/ul 1.56-6.13 (CELLAVISION)(BEAKER) (test code = 2830) LYMPHOCYTES - ABS 0.65 K/ul 1.18-3.74 L (CELLAVISION)(BEAKER) (test code = 2831) MONOCYTES - ABS 0.07 K/uL 0.24-0.36 L (CELLAVISION)(BEAKER) (test code = 2832) EOSINOPHILS - ABS 0.07 K/uL 0.04-0.36 (CELLAVISION)(BEAKER) (test code = 2834) BANDS - ABS (CELLAVISION)(BEAKER) 0.14 K/uL 0.00-0.80 (test code = 2840) TOTAL COUNTED (BEAKER) (test code = 100 1351) WBC MORPHOLOGY (BEAKER) (test code Normal = 487) PLT MORPHOLOGY (BEAKER) (test code Normal = 486) ANISOCYTOSIS (BEAKER) (test code = 3+ many 961) MACROCYTES (BEAKER) (test code = 3+ many 964) ARTIFACT (CELLAVISION)(BEAKER) Present (test code = 3432) PLATELET CONCENTRATION Decreased (CELLAVISION)(BEAKER) (test code = 3438) Broach Setter ID - [id number] ID - Lizett OverholtUser comments: Slide comments: [id number] 07:29:00 Test Item Value Reference Range Interpretation Comments MAGNESIUM (BEAKER) (test code = 2.1 mg/dL 1.6-2.6 627) Broach Setter ID - CHARO FBASIC METABOLIC [id number] 07:29:00 Test Item Value Reference Range Interpretation Comments SODIUM (BEAKER) 138 meq/L 136-145 (test code = 381) POTASSIUM (BEAKER) 4.8 meq/L 3.5-5.1 (test code = 379) CHLORIDE (BEAKER) 108 meq/L 98-107 H (test code = 382) CO2 (BEAKER) (test 22 meq/L 22-29 code = 355) BLOOD UREA NITROGEN 50 mg/dL 7-21 H (BEAKER) (test code = 354) CREATININE (BEAKER) 4.59 mg/dL 0.57-1.25 H (test code = 358) GLUCOSE RANDOM 101 mg/dL 70-105 (BEAKER) (test code = 652) CALCIUM (BEAKER) 8.6 mg/dL 8.4-10.2 (test code = 697) EGFR (BEAKER) (test 10 mL/min/1.73 ESTIMA MADAI GFR IS code = 1092) sq m NOT ACCURATE CREATININE CLEARANCE IN PREDICTING GLOMERULAR FILTRATION RATE . ESTIMATED GFR I S NOT APPLICABLE FOR DIALYSIS PATIEN TS. Broach Setter ID - CHARO FSpecimen moderately ictericAnti-Nuclear Antibody (REILLY) 2020-01-17 10:54:00 Test Item Value Reference Range Interpretation Comments REILLY (test code = 15580-8) Negative Negative VALENTE (test code = VALENTE) Test performed by IFA method.Test performed by IFA method. Lab Interpretation (test Normal code = 83449-4) [facility] HospitalANTI-NUCLEAR ANTIBODY (REILLY)2020-01-17 10:54:00 Test Item Value Reference Range Interpretation Comments ANTI-NUCLEAR ANTIBODY (REILLY) (BEAKER) Negative Negative (test code = 418) Test performed by IFA method.Test performed by IFA method.[id number] 10:49:00 Test Item Value Reference Range Interpretation Comments RPR (test code = 16624-6) Nonreactive Nonreactive Lab Interpretation (test code = Normal 71475-9) [facility] HospitalRPR2020-06-22 10:49:00 Test Item Value Reference Range Interpretation Comments RPR SCREEN (BEAKER) (test code = Nonreactive Nonreactive 420) CBC W/PLT COUNT & AUTO [id number] 10:00:00 Test Item Value Reference Range Interpretation Comments WHITE BLOOD CELL COUNT (BEAKER) 1.5 K/ L 3.5-10.5 L (test code = 775) RED BLOOD CELL COUNT (BEAKER) 1.80 M/ L 3.93-5.22 L (test code = 761) HEMOGLOBIN (BEAKER) (test code = 7.3 GM/DL 11.2-15.7 L 410) HEMATOCRIT (BEAKER) (test code = 22.1 % 34.1-44.9 L 411) MEAN CORPUSCULAR VOLUME (BEAKER) 122.8 fL 79.4-94.8 H (test code = 753) MEAN CORPUSCULAR HEMOGLOBIN 40.6 pg 25.6-32.2 H (BEAKER) (test code = 751) MEAN CORPUSCULAR HEMOGLOBIN CONC 33.0 GM/DL 32.2-35.5 (BEAKER) (test code = 752) RED CELL DISTRIBUTION WIDTH 15.0 % 11.7-14.4 H (BEAKER) (test code = 412) PLATELET COUNT (BEAKER) (test code 20 K/CU MM 150-450 L = 756) MEAN PLATELET VOLUME (BEAKER) 10.6 fL 9.4-12.3 (test code = 754) NUCLEATED RED BLOOD CELLS (BEAKER) 0 /100 WBC 0-0 (test code = 413) (CELLAVISION MANUAL DIFF)2020-01-17 10:00:00 Test Item Value Reference Range Interpretation Comments NEUTROPHILS - REL 55 % (CELLAVISION)(BEAKER) (test code = 2816) LYMPHOCYTES - REL 21 % (CELLAVISION)(BEAKER) (test code = 2817) MONOCYTES - REL 9 % (CELLAVISION)(BEAKER) (test code = 2818) EOSINOPHILS - REL 13 % (CELLAVISION)(BEAKER) (test code = 2819) BASOPHILS - REL 2 % (CELLAVISION)(BEAKER) (test code = 2820) NEUTROPHILS - ABS 0.83 K/ul 1.56-6.13 L (CELLAVISION)(BEAKER) (test code = 2830) LYMPHOCYTES - ABS 0.32 K/ul 1.18-3.74 L (CELLAVISION)(BEAKER) (test code = 2831) MONOCYTES - ABS 0.14 K/uL 0.24-0.36 L (CELLAVISION)(BEAKER) (test code = 2832) EOSINOPHILS - ABS 0.20 K/uL 0.04-0.36 (CELLAVISION)(BEAKER) (test code = 2834) BASOPHILS - ABS 0.03 K/uL 0.01-0.08 (CELLAVISION)(BEAKER) (test code = 2835) TOTAL COUNTED (BEAKER) (test code 100 = 1351) PLT MORPHOLOGY (BEAKER) (test Normal code = 486) TOXIC GRANULATION (BEAKER) (test Present code = 771) ANISOCYTOSIS (BEAKER) (test code 1+ few = 961) MACROCYTES (BEAKER) (test code = 2+ moderate 964) POIKILOCYTES (BEAKER) (test code 1+ few = 966) TEAR DROP CELLS (BEAKER) (test 1+ few code = 481) SARAH CELLS (BEAKER) (test code = 1+ few 474) ARTIFACT (CELLAVISION)(BEAKER) Present (test code = 3432) PLATELET CONCENTRATION Decreased (CELLAVISION)(BEAKER) (test code = 3438) Broach Setter ID - [id number] ID - Alem Mars comments: Slide comments:BASIC METABOLIC [id number] 05:16:00 Test Item Value Reference Range Interpretation Comments SODIUM (BEAKER) 138 meq/L 136-145 (test code = 381) POTASSIUM (BEAKER) 3.9 meq/L 3.5-5.1 (test code = 379) CHLORIDE (BEAKER) 105 meq/L 98-107 (test code = 382) CO2 (BEAKER) (test 21 meq/L 22-29 L code = 355) BLOOD UREA NITROGEN 45 mg/dL 7-21 H (BEAKER) (test code = 354) CREATININE (BEAKER) 4.91 mg/dL 0.57-1.25 H (test code = 358) GLUCOSE RANDOM 102 mg/dL 70-105 (BEAKER) (test code = 652) CALCIUM (BEAKER) 8.6 mg/dL 8.4-10.2 (test code = 697) EGFR (BEAKER) (test 9 mL/min/1.73 ESTIMAT ED GFR IS code = 1092) sq m NOT ACCURATE CREATININE CLEARANCE IN PREDICTING GLOMERULAR FILTRATION RATE . ESTIMATED GFR I S NOT APPLICABLE FOR DIALYSIS PATIEN TS. Broach Setter ID - PIAYA LSpecimen moderately [id number] 05:15:00 Test Item Value Reference Range Interpretation Comments MAGNESIUM (BEAKER) (test code = 2.1 mg/dL 1.6-2.6 627) Broach Setter ID - PIAYA LPROTHROMBIN TIME/[id number] 04:50:00 Test Item Value Reference Range Interpretation Comments PROTIME (BEAKER) (test code = 22.8 seconds 11.9-14.2 H 759) INR (BEAKER) (test code = 370) 2.1 <=5.9 Effective 12/23/2018: PT Reference Range ChangeNew: 11.9-14.2 Previous: 11.7- 14.7RECOMMENDED COUMADIN/WARFARIN INR THERAPY RANGESSTANDARD DOSE: 2.0-3.0 Includes: PROPHYLAXIS for venous thrombosis, systemic embolization; TREATMENT for venous thrombosis and/or pulmonary embolus.HIGH RISK: Target INR is2.5-3.5 for patients wiht mechanical heart valves.Vitamin B12 and [id number] 16:46:00 Test Item Value Reference Range Interpretation Comments Vitamin B12 (test code = 1107 pg/mL 213-816 H 2132-9) Folate (test code = 2284-8) 3.40 ng/mL >=7.00 L VALENTE (test code = VALENTE) Broach Setter ID - NTP Lab Interpretation (test Abnormal code = 84420-8) [facility] HospitalVIT[facility]IN B12 AND [id number] 16:46:00 Test Item Value Reference Range Interpretation Comments VITAMIN B12 (BEAKER) (test code = 1107 pg/mL 213-816 H 774) FOLATE (BEAKER) (test code = 362) 3.40 ng/mL >=7.00 L Broach Setter ID - NTPLactate dehydrogenase (LDH)2020-01-16 12:57:00 Test Item Value Reference Range Interpretation Comments LDH (test code = 2532-0) 250 U/L 125-220 H VALENTE (test code = VALENTE) Broach Setter ID - TUAN C Lab Interpretation (test Abnormal code = 60137-1) [facility] HospitalLACT[facility] DEHYDROGENASE (LDH)2020-01-16 12:57:00 Test Item Value Reference Range Interpretation Comments LACTATE DEHYDROGENASE (BEAKER) (test 250 U/L 125-220 H code = 635) Broach Setter ID - TUAN CRETICULOCYTE [id number] 12:44:00 Test Item Value Reference Range Interpretation Comments RETICULOCYTE COUNT PCT (BEAKER) (test 5.0 % 0.5-1.7 H code = 575) Broach Setter ID - [id number]-1 Antigen with HIV-1/2 [id number] 12:17:00 Test Item Value Reference Range Interpretation Comments HIV-1 Antigen with HIV Nonreactive Nonreactive 1&2 Antibody (test code = 19072-8) VALENTE (test code = VALENTE) Broach Setter ID - TUAN C Lab Interpretation (test Normal code = 62378-2) [facility] ANTIGEN WITH HIV-1/2 [id number] 12:17:00 Test Item Value Reference Range Interpretation Comments HIV-1 ANTIGEN WITH HIV 1\\T\\2 Nonreactive Nonreactive ANTIBODY (2) (BEAKER) (test code = 2586) Broach Setter ID - TUAN [id number] 12:02:00 Test Item Value Reference Range Interpretation Comments Haptoglobin (test code = <8 14-258 L 4542-7) VALENTE (test code = VALENTE) Broach Setter ID - TUAN C Lab Interpretation (test Abnormal code = 20002-2) [facility] HospitalHAPTOGLOBIN2020-06-21 12:02:00 Test Item Value Reference Range Interpretation Comments HAPTOGLOBIN (BEREBECCA) (test code = < mg/dL 14-258 L 366) Broach Setter ID - TUAN CHemoglobin [id number] 09:01:00 Test Item Value Reference Range Interpretation Comments Hemoglobin A1C (test code = 4548-4) <3.8 4.3-6.1 L Lab Interpretation (test code = Abnormal 52053-8) [facility] HospitalHEMOGLOBIN [id number] 09:01:00 Test Item Value Reference Range Interpretation Comments HEMOGLOBIN A1C (BEAKER) (test code = < % 4.3-6.1 L 368) U/S, ABDOMINAL, WITH [id number] 07:32:00Referring: Dr. Rowdy Mccarthy Reason for exam:->liver transplant evaluation, cirrhosis Should this be performed at the bedside?->NoFINAL REPORT ULTRASOUND ABDOMEN COMPLETE, ULTRASOUND DUPLEX DOPPLER HISTORY:Cirrhosis, liver transplant evaluation COMPARISON: CT abdomen of 05/02/2017 TECHNIQUE: Real-time ultrasound of the abdomen was performed. Examination included spectral and color-flow Doppler evaluation of the liver and portal venous system. FINDINGS: The liver demonstrates heterogeneously increased echogenicity and a nodular surface consistent with a history of cirrhosis. No mass lesions are identified. Hepatic length is 12 cm. No gallstones are visualized. The gallbladder is relatively contracted. The common bile duct is normal in caliber, measuring 2 mm. The main portal vein is normal in diameter, measuring 13 mm. Mild splenomegaly, with a splenic length of 12 cm. The pancreas was suboptimally visualized due to overlying bowel gas. Mild ascites is present. No pleural effusions are seen. The kidneys are normal in size, contour, and echogenicity. The right kidney measures 9.6 cm in length and the left kidney measures 10.1 cm in length. Doppler evaluation demonstrated hepatopetal flow throughoutthe portal venous system with the exception of the left portal vein where there is hepatofugal flow.Peak systolic velocity in the main portal vein was normal, measuring 15 cm/sec. Resistive indices inthe hepatic arteries were at the upper limits of normal to mildly elevated, ranging between 0.7 and 0.8. The hepatic veins are patent. No abnormalities were identified in the inferior vena cava or abdominal aorta. IMPRESSION: 1. Cirrhosis with splenomegaly and mild ascites. No hepatic mass lesion is visualized. 2. Patent portal venous system. Hepatopedal flow in the main portal vein. Signed: Albaro Alvarado MDReport Verified Date/Time: 01/16/2020 07:32:01 Reading Location: [address] Transitional Reading Room US abdominal with [id number] 07:32:00Interface, External Ris In - 01/16/2020 7:34 AM CDTFINAL REPORT ULTRASOUND ABDOMEN COMPLETE, ULTRASOUND DUPLEX DOPPLER HISTORY: Cirrhosis, liver transplant evaluation COMPARISON: CT abdomen of 05/02/2017 TECHNIQUE: Real-time ultrasound of the abdomen was performed. Examination included spectral and color-flow Doppler evaluation of the liver and portal venous system. FINDINGS: The liver demonstrates heterogeneously increased echogenicity and a nodular surface consistent with ahistory of cirrhosis. No mass lesions are identified. Hepatic length is 12 cm. No gallstones are visualized. The gallbladder is relatively contracted. The common bile duct is normal in caliber, measuring 2 mm. The main portal vein is normal in diameter, measuring 13 mm. Mild splenomegaly, with a splenic length of 12 cm. The pancreas was suboptimally visualized due to overlying bowel gas. Mild ascites is present. No pleural effusions are seen. The kidneys are normal in size, contour, and echogenicity. The right kidney measures 9.6 cm in length and the left kidney measures 10.1 cm in length. Dopplerevaluation demonstrated hepatopetal flow throughout the portal venous system with the exception of the left portal vein where there is hepatofugal flow. Peak systolic velocity in the main portal vein was normal, measuring 15 cm/sec. Resistive indices in the hepatic arteries were at the upper limits of normal to mildly elevated, ranging between 0.7 and 0.8. The hepatic veins are patent. No abnormalities were identified in the inferior vena cava or abdominal aorta. IMPRESSION: 1. Cirrhosis with splenomegaly and mild ascites. No hepatic mass lesion is visualized. 2. Patent portal venous system. Hepatopedal flow in the main portal vein. Signed: Albaro Alvarado MDReport Verified Date/Time: 01/16/2020 07:32:01 Reading Location: [address] Transitional Reading [facility]OL[facility] [id number] 04:41:00 Test Item Value Reference Range Interpretation Comments SODIUM (BEAKER) 132 meq/L 136-145 L (test code = 381) POTASSIUM (BEAKER) 3.9 meq/L 3.5-5.1 (test code = 379) CHLORIDE (BEAKER) 102 meq/L 98-107 (test code = 382) CO2 (BEAKER) (test 22 meq/L 22-29 code = 355) BLOOD UREA NITROGEN 45 mg/dL 7-21 H (BEAKER) (test code = 354) CREATININE (BEAKER) 4.79 mg/dL 0.57-1.25 H (test code = 358) GLUCOSE RANDOM 73 mg/dL 70-105 (BEAKER) (test code = 652) CALCIUM (BEAKER) 8.1 mg/dL 8.4-10.2 L (test code = 697) EGFR (BEAKER) (test 9 mL/min/1.73 ESTIMAT ED GFR IS code = 1092) sq m NOT ACCURATE CREATININE CLEARANCE IN PREDICTING GLOMERULAR FILTRATION RATE . ESTIMATED GFR I S NOT APPLICABLE FOR DIALYSIS PATIEN TS. Broach Setter ID - PIAYA LSpecimen moderately [id number] 04:38:00 Test Item Value Reference Range Interpretation Comments MAGNESIUM (BEAKER) (test code = 2.3 mg/dL 1.6-2.6 627) Broach Setter ID - PIDORIAN LHEPATIC FUNCTION [id number] 04:38:00 Test Item Value Reference Range Interpretation Comments TOTAL PROTEIN (BEAKER) (test code = 5.1 gm/dL 6.0-8.3 L 770) ALBUMIN (BEAKER) (test code = 1145) 2.6 g/dL 3.5-5.0 L BILIRUBIN TOTAL (BEAKER) (test code 5.2 mg/dL 0.2-1.2 H = 377) BILIRUBIN DIRECT (BEAKER) (test 1.9 mg/dL 0.1-0.5 H code = 706) ALKALINE PHOSPHATASE (BEAKER) (test 57 U/L 40-150 code = 346) AST (SGOT) (BEAKER) (test code = 32 U/L 5-34 353) ALT (SGPT) (BEAKER) (test code = 9 U/L 6-55 347) Broach Setter ID - PIAYA LSpecimen moderately ictericPROTHROMBIN TIME/[id number] 04:36:00 Test Item Value Reference Range Interpretation Comments PROTIME (BEAKER) (test code = 21.1 seconds 11.9-14.2 H 759) INR (BEAKER) (test code = 370) 1.9 <=5.9 Effective 12/23/2018: PT Reference Range ChangeNew: 11.9-14.2 Previous: 11.7- 14.7RECOMMENDED COUMADIN/WARFARIN INR THERAPY RANGESSTANDARD DOSE: 2.0-3.0 Includes: PROPHYLAXIS for venous thrombosis, systemic embolization; TREATMENT for venous thrombosis and/or pulmonary embolus.HIGH RISK: Target INR is2.5-3.5 for patients wiht mechanical heart valves.CBC W/PLT COUNT & AUTO [id number] 04:29:00 Test Item Value Reference Range Interpretation Comments WHITE BLOOD CELL COUNT (BEAKER) 3.0 K/ L 3.5-10.5 L (test code = 775) RED BLOOD CELL COUNT (BEAKER) 1.93 M/ L 3.93-5.22 L (test code = 761) HEMOGLOBIN (BEAKER) (test code = 7.6 GM/DL 11.2-15.7 L 410) HEMATOCRIT (BEAKER) (test code = 23.8 % 34.1-44.9 L 411) MEAN CORPUSCULAR VOLUME (BEAKER) 123.3 fL 79.4-94.8 H (test code = 753) MEAN CORPUSCULAR HEMOGLOBIN 39.4 pg 25.6-32.2 H (BEAKER) (test code = 751) MEAN CORPUSCULAR HEMOGLOBIN CONC 31.9 GM/DL 32.2-35.5 L (BEAKER) (test code = 752) RED CELL DISTRIBUTION WIDTH 15.3 % 11.7-14.4 H (BEAKER) (test code = 412) PLATELET COUNT (BEAKER) (test code 24 K/CU MM 150-450 L = 756) MEAN PLATELET VOLUME (BEAKER) 10.0 fL 9.4-12.3 (test code = 754) NUCLEATED RED BLOOD CELLS (BEAKER) 0 /100 WBC 0-0 (test code = 413) NEUTROPHILS RELATIVE PERCENT 59 % (BEAKER) (test code = 429) LYMPHOCYTES RELATIVE PERCENT 26 % (BEAKER) (test code = 430) MONOCYTES RELATIVE PERCENT 9 % (BEAKER) (test code = 431) EOSINOPHILS RELATIVE PERCENT 6 % (BEAKER) (test code = 432) BASOPHILS RELATIVE PERCENT 0 % (BEAKER) (test code = 437) NEUTROPHILS ABSOLUTE COUNT 1.77 K/ L 1.56-6.13 (BEAKER) (test code = 670) LYMPHOCYTES ABSOLUTE COUNT 0.77 K/ L 1.18-3.74 L (BEAKER) (test code = 414) MONOCYTES ABSOLUTE COUNT (BEAKER) 0.27 K/ L 0.24-0.36 (test code = 415) EOSINOPHILS ABSOLUTE COUNT 0.18 K/ L 0.04-0.36 (BEAKER) (test code = 416) BASOPHILS ABSOLUTE COUNT (BEAKER) 0.01 K/ L 0.01-0.08 (test code = 417) IMMATURE GRANULOCYTES-RELATIVE 0 % 0-1 PERCENT (BEAKER) (test code = 2801) Carotid doppler [id number] 00:34:03Ejection [facility] ECHO HEARTLAB MKCKESSON CPACSRight Impression1. The internal, common and external carotid arteries are within normallimits.2. The vertebral artery flow is antegrade and normal.4. The subclavian artery is within normal limits where visualized.Left Impression1. The internal, commonand external carotid arteries are within normallimits.2. The vertebral artery flow is antegrade and normal.4. The subclavian artery is within normal limits where visualized. Conclusions Summary Carotid duplex scanning and color flow imaging were performed bilaterally. The arteries were well visualized and no areas of stenosis were found bilaterally. Doppler flow velocities were within normal rangebilaterally. The vertebral artery flow was antegrade and normal bilaterally. Signature Velocities are measured in cm/s ; Diameters are measured in cm Carotid Right Measurements+--- +----+----+-----+ + + +!Locatio n !PSV !EDV !Angle!%Stenosis 2D!%Stenosis Doppler!Tortuosity !+ +----+----+-----+ +-------- ---------+ +!Prox CCA !109 !19.8!60 ! ! ! !+-- +----+----+-----+ + + +!Dist CCA !98.8!18.9!60 ! ! ! !+ +----+----+-----+ +------- + +!Prox ICA !91.1!28 !60 ! ! ! !+- +----+----+-----+ + + +!Dist ICA !115 !35 !60 ! ! ! !+ +----+----+-----+ +------ + +!Prox ECA !104 !14.7!60 ! ! ! !+ +----+----+-----+ + + +!Vert ebral !67.3!18.2!60 ! ! ! !+ +----+----+-----+ +----- + +!Prox Subclavian!103 !11.2!60 ! ! ! ! + +----+----+-----+ + + + - Additional Measurements:ICAPSV/CCAPSV 1.16.ICAEDV/CCAEDV 1.77. Carotid Left Measurements+ +----+----+-----+ + + +!Location !PSV !EDV !Angle!%Stenosis 2D!%Stenosis Doppler!Tortuosity !+ +----+----+-----+ + + +!Pr ox CCA !114 !19.6!60 ! ! ! !+ +----+----+----- + + + +!Dist CCA !103 !20.4!60 ! ! ! !+ +----+----+-----+ + + +!Pr oxICA !87 !24.3!60 ! ! ! !+ +----+----+---- -+ + + +!Dist ICA !98.8!29.8!60 ! ! ! !+ +----+----+-----+ + + +!Pr ox ECA !84.7!14.1!60 ! ! ! !+ +----+----+--- --+ + + +!Vertebral !90.9!23.5!60 ! ! ! !+ +----+----+-----+ + + +!Pr ox Subclavian!125 !14.1!60 ! ! ! !+ +----+----+-----+ + + + - Additional Measurements:ICAPSV/CCAPSV 0.96.ICAEDV/CCAEDV 1.52. Interface, External Ris In - 01/16/2020 12:34 AM CDTPV LAB - Carotid Duplex Study [facility] Patient Name CICI CALDERON Date of Study 01/15/2020 ALYSE Age 64 Visit Number [id number] Gender Female Accession Number [id number] Date of 1955 Referring [facility] Room Number 1515 Physician Typing Office Worker Herbert Lechuga Interpreting Chelsea Resendez RVT Physician ProcedureType of Study: Cerebral: Carotid, CAROTID DOPPLER, BILATERAL. Indications for Study:Liver transplantevaluation.Patient Status:STAT.Study Location:Portable.Technical Quality:Adequate visualization.RiskFactorsHistory of Disease+---------+----+ --+!Diagnosis!Date!Comments !+---------+----+--------- +!Other ! !COPD, Liver Disease, Obesity !+---------+----+ +ImpressionsRight Impression1. The internal, common and external carotid arteries are within normallimits.2. The vertebral artery flow is antegrade and normal.4. The subclavian artery is within normal limits where visualized.Left Impression1. The internal, common and external carotid arteries are within normallimits.2. The vertebral artery flow is antegrade and normal.4. The subclavian artery is within normal limits where visualized. Conclusions Summary Carotid duplex scanning and color flow imaging were performed bilaterally. The arteries were well visualized and no areas of stenosis were found bilaterally. Doppler flow velocities were within normal range bilaterally. The vertebral artery flow was antegrade and normal bilaterally. Signature Velocities are measured in cm/s; Diameters are measured in cmCarotid Right Measurements+ +----+----+-----+ + + +!Location !PSV !EDV !Angle!%Stenosis 2D!%Stenosis Doppler!Tortuosity !+ +----+----+-----+ + + +!Pr ox CCA !109 !19.8!60 ! ! ! !+ +----+----+-----+ -+ + +!Dist CCA !98.8!18.9!60 ! ! ! !+ +----+----+-----+ + + +!Pr ox ICA !91.1!28 !60 ! ! ! !+ +----+----+-----+ --+ + +!Dist ICA !115 !35 !60 ! ! ! !+ +----+----+-----+ + + +!Pr ox ECA !104 !14.7!60 ! ! ! !+ +----+----+-----+--------- ---+ + +!Vertebral !67.3!18.2!60 ! ! ! !+ +----+----+-----+ + + +!Pr ox Subclavian!103 !11.2!60 ! ! ! !+ +----+----+-----+ + + + - Additional Measurements:ICAPSV/CCAPSV 1.16.ICAEDV/CCAEDV 1.77.Carotid Left Measurements+ +----+----+-----+ + +---- -------+!Location !PSV !EDV !Angle!%Stenosis 2D!%Stenosis Doppler!Tortuosity !+ +----+--- -+-----+ + + +!Prox CCA !114 !19.6!60 ! ! ! !+ +----+----+-----+ + + +!Dist CCA !103 !20.4!60 ! ! ! !+ +----+-- --+-----+ + + +!Prox ICA !87 !24.3!60 ! ! ! !+ +----+----+-----+ + + +!Dist ICA !98.8!29.8!60 ! ! ! !+ +----+- ---+-----+ + + +!Prox ECA !84.7!14.1!60 ! ! ! !+ +----+----+-----+ + +--------- --+!Vertebral !90.9!23.5!60 ! ! ! !+ +----+ ----+-----+ + + +!Prox Subclavian!125 !14.1!60 ! ! ! !+ +----+----+-----+ + + + - Additional Measurements:ICAPSV/CCAPSV 0.96.ICAEDV/CCAEDV 1.52.[facility], automated - - at seperate draw time from initial type and [id number] 20:34:00 Test Item Value Reference Range Interpretation Comments ABO/RH AUTOMATED (CLAUDIAREBECCA) (test A POSITIVE code = 2260) [facility] 18:08:00 Test Item Value Reference Range Interpretation Comments T4, Total (test code = 4.3 ug/dL 4.9-11.7 L 3026-2) VALENTE (test code = VALENTE) Broach Setter ID - NTP Lab Interpretation (test Abnormal code = 64737-1) [facility]42020-06-20 18:08:00 Test Item Value Reference Range Interpretation Comments T4 TOTAL (BEAKER) (test code = 895) 4.3 ug/dL 4.9-11.7 L Broach Setter ID - [id number] 18:07:00 Test Item Value Reference Range Interpretation Comments Ferritin (test code = 489.86 ng/mL 5-275 H 2276-4) VALENTE (test code = VALENTE) Broach Setter ID - NTP Lab Interpretation (test Abnormal code = 49829-2) [facility] HospitalFERRITIN2020-06-20 18:07:00 Test Item Value Reference Range Interpretation Comments FERRITIN (BEAKER) (test code = 489.86 ng/mL 5.00-275.00 H 361) Broach Setter ID - NTPCT, CHEST, WITHOUT [id number] 17:57:00Referring: Dr. Rowdy LopestFINAL REPORT CT of the chest, without contrast [...] 2020 Discussion: Visualized thyroid gland is normal. There is no supraclavicular, axillary, mediastinal or hilar lymphad enopathy. Heart is normal in size. No pericardial effusion. There is a small hiatal hernia, and periesophageal varices are suspected. There is pulmonary emphysema, most advanced at the upper lungs. Minimal scarring or atelectasis is present at the lung bases. No mass or consolidation. No pleural effusion. Central airways are patent, no bronchiectasis, or bronchial wall thickening. Liver is cirrhotic.There is a large amount of ascites. Osseous structures demonstrate mild degenerative changes. No suspicious bony lesion is identified. Impression: Pulmonary emphysema. Cirrhosis and large amount of ascites. Small hiatal hernia. Signed: Roger Hamptoneport Verified Date/Time: 01/15/2020 17:57:54 Reading Location: [address] Consult Reading Room CT chest without IV [id number] 17:57:00Interface, External Ris In - 01/15/2020 6:[address] of the chest, without contrast Clinical History: shortness of breath, ascites Technique: CT of the chest is p erformed without intravenous contrast administration. This exam was performed according to our departmental dose optimization program which includes automated exposure control, adjustment of the mA and/or kV according to patient's size and/or use of iterative reconstructive technique. Comparison Film: Chest radiograph dated January 15, 2020 Discussion: Visualized thyroid gland is normal. There is no supraclavicular, axillary, mediastinal or hilar lymphadenopathy. Heart is normal in size. No pericardial effusion. There is a small hiatal hernia, and periesophageal varices are suspected. There is pulmonary emphysema, most advanced at the upper lungs. Minimal scarring or atelectasis is present at the lung bases. No mass or consolidation. No pleural effusion. Central airways are patent, no bronchiectasis, or bronchial wall thickening. Liver is cirrhotic. There is a large amount of ascites. Osseous structures demonstrate mild degenerative changes. No suspicious bony lesion is identified. Impression: Pu lmonary emphysema. Cirrhosis and large amount of ascites. Small hiatal hernia. Signed: Roger Hampton Verified Date/Time: 01/15/2020 17:57:54 Reading Location: [facility] C0X Ortho Consult Reading Room [facility] 2020-01-15 17:27:00 Test Item Value Reference Range Interpretation Comments TSH (test code = 03768-4) 5.549 0.350- 4.940 uIU/mL H VALENTE (test code = VALENTE) Broach Setter ID - DB Lab Interpretation (test Abnormal code = 38609-6) [facility] HospitalVitamin D, 69-[id number] 17:27:00 Test Item Value Reference Range Interpretation Comments Vitamin D 25-Hydroxy 6.2 ng/mL 6.6-49.9 L (test code = 2764) VALENTE (test code = VALENET) Effective 05/07/2017: Reference Range ChangeNew: 6.6-49.9 ng/mL Previous: 13.0-47.8 ng/mL Recommended Vitamin D Target Range: 30.0-40.0 ng/mLOperator ID - DB Lab Interpretation (test Abnormal code = 63292-3) [facility] HospitalAlpha fetoprotein (AFP), tumor [id number] 17:27:00 Test Item Value Reference Range Interpretation Comments Alpha-Fetoprotein (test code <2.0 <10.0 ng/mL = 1834-1) VALENTE (test code = VALENTE) Broach Setter ID - DB Lab Interpretation (test Normal code = 21217-6) [facility] HospitalVITAMIN D, 16-[id number] 17:27:00 Test Item Value Reference Range Interpretation Comments VITAMIN D 25-OH (BEAKER) (test code 6.2 ng/mL 6.6-49.9 L = 2764) Effective 05/07/2017: Reference Range ChangeNew: 6.6-49.9 ng/mL Previous: 13.0-47.8 ng/mLRecommended Vitamin D Target Range: 30.0-40.0 ng/mLOperator ID - [id number] 17:27:00 Test Item Value Reference Range Interpretation Comments THYROID STIMULATING HORMONE 5.549 uIU/mL 0.350-4.940 H (BEAKER) (test code = 772) Broach Setter ID - DBALPHA FETOPROTEIN (AFP), TUMOR [id number] 17:27:00 Test Item Value Reference Range Interpretation Comments ALPHA-FETOPROTEIN (BEAKER) (test code < ng/mL <10.0 = 1094) Broach Setter ID - DBHepatitis B surface [id number] 17:25:00 Test Item Value Reference Range Interpretation Comments HBsAg Screen (test code Nonreactive Nonreactive = 5195-3) VALENTE (test code = VALENTE) Specimen is considered negative for HBsAg. Lab Interpretation (test Normal code = 40160-9) [facility] HospitalHepatitis B surface [id number] 17:25:00 Test Item Value Reference Range Interpretation Comments Hep B S Ab (test code = 25.0 <8.0 mIU/mL H 34831-3) VALENTE (test code = VALENTE) Broach Setter ID - DB Lab Interpretation (test Abnormal code = 05754-1) [facility] HospitalHepatitis C [id number] 17:25:00 Test Item Value Reference Range Interpretation Comments Hepatitis C Ab (test code = Nonreactive Nonreactive 23671-2) VALENTE (test code = VALENTE) Broach Setter ID - DB Lab Interpretation (test Normal code = 61507-4) [facility] HospitalHEPATITIS B SURFACE [id number] 17:25:00 Test Item Value Reference Range Interpretation Comments HEPATITIS B SURFACE ANTIGEN (2) Nonreactive Nonreactive (BEAKER) (test code = 2585) Specimen is considered negative for HBsAg.HEPATITIS B SURFACE [id number] 17:25:00 Test Item Value Reference Range Interpretation Comments HEPATITIS B SURFACE ANTIBODY 25.0 mIU/mL <8.0 H (BEAKER) (test code = 647) Broach Setter ID - DBHEPATITIS C [id number] 17:25:00 Test Item Value Reference Range Interpretation Comments HEPATITIS C ANTIBODY (BEAKER) Nonreactive Nonreactive (test code = 367) Broach Setter ID - DBCarcinoembryonic Antigen (CEA)2020-01-15 17:23:00 Test Item Value Reference Range Interpretation Comments CEA, SERUM (test code = 7.9 ng/mL 0-5 H 9-6) VALENTE (test code = VALENTE) Broach Setter ID - DB Lab Interpretation (test Abnormal code = 86183-1) [facility] B core antibody, [id number] 17:23:00 Test Item Value Reference Range Interpretation Comments Hep B C IgM (test code = Nonreactive Nonreactive 22307-7) VALENTE (test code = VALENTE) Broach Setter ID - DB Lab Interpretation (test Normal code = 27667-9) [facility] HospitalHepatitis A antibody, [id number] 17:23:00 Test Item Value Reference Range Interpretation Comments Hep A IgM (test code = Nonreactive Nonreactive 68528-3) VALENTE (test code = VALENTE) Broach Setter ID - DB Lab Interpretation (test Normal code = 25724-6) [facility] HospitalCARCINOEMBRYONIC ANTIGEN (CEA)2020-01-15 17:23:00 Test Item Value Reference Range Interpretation Comments CARCINOEMBRYONIC ANTIGEN (BEAKER) 7.9 ng/mL 0.0-5.0 H (test code = 685) Broach Setter ID - DBHEPATITIS B CORE ANTIBODY, [id number] 17:23:00 Test Item Value Reference Range Interpretation Comments HEPATITIS B CORE IGM ANTIBODY Nonreactive Nonreactive (BEAKER) (test code = 645) Broach Setter ID - DBHEPATITIS A ANTIBODY, [id number] 17:23:00 Test Item Value Reference Range Interpretation Comments HEPATITIS A IGM ANTIBODY (BEAKER) Nonreactive Nonreactive (test code = 498) Broach Setter ID - DBRAD, MANDIBLE, MIN 4 [id number] 17:22:00Referring: Dr. Rowdy Zhang for exam:->liver transplant evaluation, cirrhosisShould this be performed at the bedside?->NoFINAL REPORT MANDIBLE 4 VIEWS HISTORY: Cirrhosis, liver transplant evaluationCOMPARISON: No comparison mandibular imaging FINDINGS: PA, lateral, bilateral oblique, and Nayeli's views of the mandible were obtained. The only residual teeth present are the central 7 teeth in the center of the mandible. No periapical abscess is seen in association with these. No dental caries are appreciated. No fracture or bony destruction are visualized in the mandible. Signed: Albaro Alvarado Verified Date/Time: 01/15/2020 17:22:12 Reading Location: [address] Transitional Reading Room XR mandible min 4 [id number] 17:22:00Interface, External Ris In - 01/15/2020 5:24 PM CDTFINAL REPORT MANDIBLE 4 VIEWS HISTORY: Cirrhosis, liver transplant evaluation COMPARISON: No comparison mandibular imaging FINDINGS: PA, lateral, bilateral oblique, and Nayeli's views of the mandible were obtained. The only residual teeth present are the central 7 teeth in the center of the mandible. No periapical abscess is seen in association with these. No dental caries are appreciated. No fracture or bony destruction are visualized in the mandible. Signed: Albaro Alvarado Verified Date/Time: 01/15/2020 17:22:12 Reading Location: [facility] C[facility] Transitional Reading [facility] ServicesRAD, [facility]ST, 2 [id number] 17:16:00Referring: Dr. Rowdy Zhang for exam:->liver transplant evaluation, cirrhosisShould this be performed at the bedside?->NoFINAL REPORT History: Cirrhosis, liver transplant evaluation Comparison: No comparison chest imaging Findings: There are peripheral interstitial opacities in the lungs bilaterally, most likely reflecting changes of chronic lung disease. No lobar consolidation is visualized. No pleural effusions or pneumothorax. The heart shadow is normal in size. The thoracic aorta is mildly calcified. Degenerative changes are present in the spine. Impression: 1. No definite evidence of acutecardiopulmonary disease. 2. Findings suggestive of chronic interstitial lung disease. Signed: Albaro Alvarado Verified Date/Time: 01/15/2020 17:16:49 Reading Location: [address] Transitional Reading Room XR chest 2 [id number] 17:16:00Interface, External Ris In - 01/15/2020 5:19 PM CDTFINAL REPORT History: Cir rhosis, liver transplant evaluation Comparison: No comparison chest imaging Findings: There are peripheral interstitial opacities in the lungs bilaterally, most likely reflecting changes of chronic lung disease. No lobar consolidation is visualized. No pleural effusions or pneumothorax. The heart shadow is normal in size. The thoracic aorta is mildly calcified. Degenerative changes are present in thespine. Impression: 1. No definite evidence of acute cardiopulmonary disease. 2. Findings suggestive of chronic interstitial lung disease. 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 IV saline contrast with delayed imaging demonstratesintra pulmonic shunting. The left ventricle is chamber size (by PSLAX dimension) is normal (male - LVIDd 4.2-5.8cm) . All of the LV segments contract normally . Estimated LVEF by qualitative assessmentis normal (>60%) . Normal diastolic function. Estimated peak systolic PA pressure is 30-35 mmHg .A left pleural effusion is noted. Ascites is present. Signature Findings Left Ventricle The left ventricle is chamber size (by PSLAX dimension)is normal (male - LVIDd 4.2-5.8cm) . Normal LV wall thickness. All of the LV segments contract normally . Estimated LVEF by qualitative assessment is normal (>60%) . Normal diastolic function. Left Atrium LA size is mildly enlarged (35-41 ml/m2) . Right Ventricle The right ventricular chamber size and systolic function are within normal limits. Right Atrium RA size is normal. Atrial Septum IV saline contrast injection was negative for a PFO (patent foramen ovale) at rest and post Valsalva . IV saline contrast with delayed imaging demonstrates intra pulmonic shunting. Aortic Valve Mild AoV cusp thickening. Mitral Valve Mild MV leaflet thickening. Trace mitral regurgitation. Tricuspid Valve TV structure is normal. A trace of tricuspid regurgitation. Estimated peak systolic PA pressure is 30-35 mmHg . Pulmonic Valve Normal PV structure and function by limited views and Doppler. Aorta Aortic root size (SInus of Valsalva diameter) is normal . Pericardium No significant pericardial effusion is visualized. IVC/SVC/PA/PV/Pleural A left pleural effusion is noted. Ascites is present. Chambers/Structures Left Atrium LA Dimension: 4.15 cm LA Area: 23.36 cm^2 LA Volume: 72.55 ml LA Vol. Index: 38 ml/m^2 Left Ventricle LVIDd: 4.83 cm LVEDV:102.1 ml LVIDs: 2.64 cm LV Septum Diastolic: 0.57 cm LV PW Diastolic: 0.59cm LV FS: 45.3 % LVOT Diameter: 1.87 cm Aorta Ao Root S of Beatriz.: 2.5cm Doppler/Quantitative Measurements Aortic Valve Peak Velocity: 1.85 m/s Mean Velocity: 1.13 m/s Peak Gradient: 13.75 mmHg Mean Gradient: 6.19 mmHg AV Area (continuity): 2.48 cm^2 AV VTI: 36.36 cm AV DVI: 0.91 LVOT Peak Velocity: 1.58 m/s Peak Gradient:9.98 mmHg Mean Velocity: 0.95 m/s Mean Gradient: 4.37 mmHg LVOT Diameter: 1.87 cm LVOT VTI: 32.91 cm LVOT Area: 2.75 cm^2 LVOT SV:90.34 ml LVOT CO: 7.05 l/min LVOT CI: 3.67 l/min/m^2[facility] CenterCOMPREHENSIVE METABOLIC [id number] 17:06:00 Test Item Value Reference Range Interpretation Comments TOTAL PROTEIN 5.8 gm/dL 6.0-8.3 L Specimen sligh tly (BEAKER) (test code = hemoly zed 770) ALBUMIN (BEAKER) 2.6 g/dL 3.5-5.0 L Specimen sl ightly (test code = 1145) hemolyzed ALKALINE PHOSPHATASE 68 U/L 40-150 (BEAKER) (test code = 346) BILIRUBIN TOTAL 5.2 mg/dL 0.2-1.2 H Specimen sli ghtly (BEAKER) (test code = hemoly zed 377) SODIUM (BEAKER) (test 133 meq/L 136-145 L code = 381) POTASSIUM (BEAKER) 4.0 meq/L 3.5-5.1 Specimen slightly (test code = 379) hemolyzed CHLORIDE (BEAKER) 102 meq/L 98-107 (test code = 382) CO2 (BEAKER) (test 21 meq/L 22-29 L code = 355) BLOOD UREA NITROGEN 47 mg/dL 7-21 H (BEAKER) (test code = 354) CREATININE (BEAKER) 4.78 mg/dL 0.57-1.25 H Specimen slightly (test code = 358) hemolyzed GLUCOSE RANDOM 96 mg/dL 70-105 (BEAKER) (test code = 652) CALCIUM (BEAKER) 8.5 mg/dL 8.4-10.2 (test code = 697) AST (SGOT) (BEAKER) 53 U/L 5-34 H Specimen slightly (test code = 353) hemolyzed ALT (SGPT) (BEAKER) 13 U/L 6-55 Specimen slightly (test code = 347) hemolyzed EGFR (BEAKER) (test 9 mL/min/1.73 ESTIMAT ED GFR IS code = 1092) sq m NOT ACCURATE CREATININE CLEARANCE IN PREDICTING GLOMERULAR FILTRATION RATE . ESTIMATED GFR I S NOT APPLICABLE FOR DIALYSIS PATIEN TS. Broach Setter ID - NTPSpecimen moderately tejixruLchqkhnybm6517-76-53 17:03:00 Test Item Value Reference Range Interpretation Comments Fibrinogen (test code = 3255-7) 114 mg/dl 225-434 L Lab Interpretation (test code = Abnormal 23670-3) [facility] 17:03:00 Test Item Value Reference Range Interpretation Comments FIBRINOGEN LEVEL (BEAKER) (test 114 mg/dl 225-434 L code = 658) [id number] 17:00:00 Test Item Value Reference Range Interpretation Comments Transferrin (test code = 102 mg/dL 174-382 L 3034-6) VALENTE (test code = VALENTE) Broach Setter ID - DBSpecimen moderately icteric Lab Interpretation (test Abnormal code = 54890-3) [facility] HospitalIron, TIBC, % sat. (without ferritin)2020-01-15 17:00:00 Test Item Value Reference Range Interpretation Comments Iron (test code = 2498-4) 144.0 ug/dL 40-160 TIBC (test code = 2500-7) 129 ug/dL 250-450 L Iron % Saturation (test code 112 % 20-55 H = 2502-3) VALENTE (test code = VALENTE) Broach Setter ID - DB Lab Interpretation (test Abnormal code = 56990-2) [facility]TRAN[facility]IN[facility] 17:00:00 Test Item Value Reference Range Interpretation Comments TRANSFERRIN (BEAKER) (test code = 102 mg/dL 174-382 L 541) Broach Setter ID - DBSpecimen moderately ictericIRON, TIBC, % SAT. (WITHOUT FERRITIN) 2020-01-15 17:00:00 Test Item Value Reference Range Interpretation Comments IRON (BEAKER) (test code = 547) 144.0 ug/dL 40.0-160.0 TOTAL IRON BINDING CAPACITY 129 ug/dL 250-450 L (BEAKER) (test code = 769) IRON % SATURATION (2) (BEAKER) 112 % 20-55 H (test code = 2590) Broach Setter ID - DJLewhu-3-syfckpkjqwa1326-06-20 16:59:00 Test Item Value Reference Range Interpretation Comments A-1 Antitrypsin (test code = 121.20 mg/dL 90-200 1825-9) VALENTE (test code = VALENTE) Broach Setter ID - DB Lab Interpretation (test Normal code = 68529-8) [facility] HospitalBILIRUBIN, [id number] 16:59:00 Test Item Value Reference Range Interpretation Comments BILIRUBIN DIRECT 1.6 mg/dL 0.1-0.5 H Specimen sl ightly (BEAKER) (test code = hemoly zed 706) Broach Setter ID - [id number]-1-[id number] 16:59:00 Test Item Value Reference Range Interpretation Comments ALPHA-1 ANTITRYPSIN (BEAKER) 121.20 mg/dL 90.00-200.00 (test code = 502) Broach Setter ID - [id number] 16:58:00 Test Item Value Reference Range Interpretation Comments Ethanol Lvl (test code = <10 <=10 mg/dL 5643-2) VALENTE (test code = VALENTE) Broach Setter ID - DB Lab Interpretation (test Normal code = 00891-6) [facility]aPTT[facility] 16:58:00 Test Item Value Reference Range Interpretation Comments PTT (test code = 44347-7) 36.8 22.5- 36.0 seconds H Lab Interpretation (test code = Abnormal 16554-1) [facility]APTT[facility] 16:58:00 Test Item Value Reference Range Interpretation Comments PARTIAL THROMBOPLASTIN TIME 36.8 seconds 22.5-36.0 H (BEAKER) (test code = 760) [id number] 16:58:00 Test Item Value Reference Range Interpretation Comments ETHANOL (BEAKER) (test code = 400) < mg/dL <=10 Broach Setter ID - DBPROTHROMBIN TIME/[id number] 16:57:00 Test Item Value Reference Range Interpretation Comments PROTIME (BEAKER) (test code = 19.7 seconds 11.9-14.2 H 759) INR (BEAKER) (test code = 370) 1.7 <=5.9 Effective 12/23/2018: PT Reference Range ChangeNew: 11.9-14.2 Previous: 11.7- 14.7RECOMMENDED COUMADIN/WARFARIN INR THERAPY RANGESSTANDARD DOSE: 2.0-3.0 Includes: PROPHYLAXIS for venous thrombosis, systemic embolization; TREATMENT for venous thrombosis and/or pulmonary embolus.HIGH RISK: Target INR is2.5-3.5 for patients wiht mechanical heart valves.CALCIUM, [id number] 16:45:00 Test Item Value Reference Range Interpretation Comments CALCIUM IONIZED (BEAKER) (test 1.08 mmol/L 1.12-1.27 L code = 698) PH, BLOOD (BEAKER) (test code = 7.38 1810) CREATININE, RANDOM [id number] 13:46:00 Test Item Value Reference Range Interpretation Comments CREATININE URINE (BEAKER) (test 280.7 mg/dL code = 375) Reference Range: No NormalsOperator ID - NTPSODIUM, RANDOM [id number] 13:46:00 Test Item Value Reference Range Interpretation Comments SODIUM URINE (BEAKER) (test code = < meq/L 243) Reference Range: No NormalsOperator ID - NTPHepatitis panel, [id number] 13:05:00 Test Item Value Reference Range Interpretation Comments Hep A IgM (test code = Nonreactive Nonreactive 83968-0) Hep B C IgM (test code = Nonreactive Nonreactive 69970-5) Hepatitis C Ab (test code = Nonreactive Nonreactive 96048-0) HBsAg Screen (test code = Nonreactive Nonreactive 5195-3) VALENTE (test code = VALENTE) Broach Setter ID - NTP Lab Interpretation (test Normal code = 32147-4) [facility] HospitalHEPATITIS PANEL, [id number] 13:05:00 Test Item Value Reference Range Interpretation Comments HEPATITIS A IGM ANTIBODY (BEAKER) Nonreactive Nonreactive (test code = 498) HEPATITIS B CORE IGM ANTIBODY Nonreactive Nonreactive (BEAKER) (test code = 645) HEPATITIS C ANTIBODY (BEAKER) Nonreactive Nonreactive (test code = 367) HEPATITIS B SURFACE ANTIGEN (2) Nonreactive Nonreactive (BEAKER) (test code = 2585) Broach Setter ID - NTPLipid [id number] 11:51:00 Test Item Value Reference Range Interpretation Comments Triglycerides (test 86 mg/dL code = 2571-8) Cholesterol (test code 101 mg/dL = 2093-3) HDL (test code = 12 mg/dL 2085-9) LDL Calculated (test 72 mg/dL code = 60934-0) VALENTE (test code = VALENTE) Triglyceride Reference Range: Low Risk <150 Borderline 150-199 High Risk 200-499 Very High Risk >=500 Cholesterol Reference Range: Low Risk <200 Borderline 200-239 High Risk >240 HDL Cholesterol Reference Range: Low Risk >=60 High Risk <40 LDL Cholesterol Reference Range: Optimal <100 Near Optimal 100-129 Borderline 130-159 High 160-189 Very High >=190 Broach Setter ID - NTPSpecimen moderately icteric [facility] HospitalGamma Glutamyl Transferase (GGT)2020-01-15 11:51:00 Test Item Value Reference Range Interpretation Comments GGT (test code = 2324-2) 15 U/L 9-64 VALNETE (test code = VALENTE) Broach Setter ID - NTPSpecimen moderately icteric Lab Interpretation (test Normal code = 10519-8) [facility] HospitalUric [id number] 11:51:00 Test Item Value Reference Range Interpretation Comments Uric Acid (test code = 15.7 mg/dL 2.6-7.2 H 3084-1) VALENTE (test code = VALENTE) Broach Setter ID - NTPSpecimen moderately icteric Lab Interpretation (test Abnormal code = 45162-7) [facility] HospitalURIC [id number] 11:51:00 Test Item Value Reference Range Interpretation Comments URIC ACID (BEAKER) (test code = 15.7 mg/dL 2.6-7.2 H 773) Broach Setter ID - NTPSpecimen moderately ictericLIPID [id number] 11:51:00 Test Item Value Reference Range Interpretation Comments TRIGLYCERIDES (BEAKER) (test code = 86 mg/dL 540) CHOLESTEROL (BEAKER) (test code = 101 mg/dL 631) HDL CHOLESTEROL (BEAKER) (test code 12 mg/dL = 976) LDL CHOLESTEROL CALCULATED (BEAKER) 72 mg/dL (test code = 633) Triglyceride Reference Range: Low Risk <150 Borderline 150-199 High Risk 200-499 Very High Risk >=500Cholesterol Reference Range: Low Risk <200 Borderline 200-239 High Risk >240HDL Cholesterol Reference Range: Low Risk >=60 High Risk <40LDL Cholesterol Reference Range: Optimal <100 Near Optimal 100-129 Borderline 130-159 High 160-189 Very High >=190 Broach Setter ID - NTPSpecimen moderately [id number] 11:51:00 Test Item Value Reference Range Interpretation Comments PHOSPHORUS (BEAKER) (test code = 4.5 mg/dL 2.3-4.7 604) Broach Setter ID - NTPGAMMA GLUTAMYL TRANSFERASE (GGT)2020-01-15 11:51:00 Test Item Value Reference Range Interpretation Comments GAMMA GLUTAMYL TRANSFERASE (BEAKER) 15 U/L 9-64 (test code = 364) Broach Setter ID - NTPSpecimen moderately ictericCBC W/PLT COUNT & AUTO [id number] 11:25:00 Test Item Value Reference Range Interpretation Comments WHITE BLOOD CELL COUNT 1.9 K/ L 3.5-10.5 L This is a corrected (BEAKER) (test code = result . Previous 775) result was 2.0 K/ L on 01/15/2020 at 0423 CDT RED BLOOD CELL COUNT 2.05 M/ L 3.93-5.22 L This is a corrected (BEAKER) (test code = result . Previous 761) result was 2.07 M/ L on 01/15/2020 at 0423 CDT HEMOGLOBIN (BEAKER) 8.1 GM/DL 11.2-15.7 L (test code = 410) HEMATOCRIT (BEAKER) 24.7 % 34.1-44.9 L This is a corrected (test code = 411) result. Pr evious result was 24.9 % on 01/15/2020 at 04 23 CDT MEAN CORPUSCULAR VOLUME 120.5 fL 79.4-94.8 H This is a corrected (BEAKER) (test code = result . Previous 753) result was 120. 3 fL on 01/15/2020 at 0423 CDT MEAN CORPUSCULAR 39.5 pg 25.6-32.2 H This is a c orrected HEMOGLOBIN (BEAKER) result. Previous (test code = 751) result was 39.1 pg on 01/15/2020 at 0423 CDT MEAN CORPUSCULAR 32.8 GM/DL 32.2-35.5 This is a c orrected HEMOGLOBIN CONC result. Prev ious (BEAKER) (test code = result was 32.5 752) GM/DL on 020 at 0423 CDT RED CELL DISTRIBUTION 15.2 % 11.7-14.4 H This i s a corrected WIDTH (BEAKER) (test result. Previous code = 412) result was 15.3 % on 01/15/2020 at 04 23 CDT PLATELET COUNT (BEAKER) 21 K/CU MM 150-450 L This is a corrected (test code = 756) result. Pr evious result was 25 K /CU MM on 01/15/2020 at 0423 CDT MEAN PLATELET VOLUME 9.7 fL 9.4-12.3 This is a corrected (BEAKER) (test code = result . Previous 754) result was 10.2 fL on 01/15/2020 at 0423 CDT NUCLEATED RED BLOOD 0 /100 WBC 0-0 CELLS (BEAKER) (test code = 413) (CELLAVISION MANUAL DIFF)2020-01-15 11:25:00 Test Item Value Reference Range Interpretation Comments NEUTROPHILS - REL 79 % (CELLAVISION)(BEAKER) (test code = 2816) LYMPHOCYTES - REL 7 % (CELLAVISION)(BEAKER) (test code = 2817) MONOCYTES - REL 2 % (CELLAVISION)(BEAKER) (test code = 2818) EOSINOPHILS - REL 10 % (CELLAVISION)(BEAKER) (test code = 2819) BANDS - REL (CELLAVISION)(BEAKER) 1 % 0-10 (test code = 2826) NEUTROPHILS - ABS 1.50 K/ul 1.56-6.13 L (CELLAVISION)(BEAKER) (test code = 2830) LYMPHOCYTES - ABS 0.13 K/ul 1.18-3.74 L (CELLAVISION)(BEAKER) (test code = 2831) MONOCYTES - ABS 0.04 K/uL 0.24-0.36 L (CELLAVISION)(BEAKER) (test code = 2832) EOSINOPHILS - ABS 0.19 K/uL 0.04-0.36 (CELLAVISION)(BEAKER) (test code = 2834) BANDS - ABS (CELLAVISION)(BEAKER) 0.02 K/uL 0.00-0.80 (test code = 2840) TOTAL COUNTED (BEAKER) (test code 100 = 1351) WBC MORPHOLOGY (BEAKER) (test Normal code = 487) GIANT PLATELETS (BEAKER) (test Present code = 313) POLYCHROMATOPHILLIC RBCS(BEAKER) 1+ few (test code = 478) HYPOCHROMIA (BEAKER) (test code = 1+ few 963) ANISOCYTOSIS (BEAKER) (test code 2+ moderate = 961) MICROCYTES (BEAKER) (test code = 1+ few 965) MACROCYTES (BEAKER) (test code = 2+ moderate 964) POIKILOCYTES (BEAKER) (test code 1+ few = 966) OVALOCYTES (BEAKER) (test code = 1+ few 477) TEAR DROP CELLS (BEAKER) (test 1+ few code = 481) ARTIFACT (CELLAVISION)(BEAKER) Present (test code = 3432) PLATELET CONCENTRATION Decreased (CELLAVISION)(BEAKER) (test code = 3438) Broach Setter ID - [id number] ID - Ana Laura HeMeghanhayley comments: Slide comments: [id number] 10:20:00 Test Item Value Reference Range Interpretation Comments MAGNESIUM (BEAKER) (test code = 2.2 mg/dL 1.6-2.6 627) Broach Setter ID - [id number] 08:57:00 Test Item Value Reference Range Interpretation Comments Ammonia (test code = 19 18- 72 mol/L 52636-7) VALENTE (test code = VALENTE) Broach Setter ID - NTP Lab Interpretation (test Normal code = 03982-6) [facility]AMMONIA2020-[facility] 08:57:00 Test Item Value Reference Range Interpretation Comments AMMONIA (BEAKER) (test code = 348) 19 mol/L 18-72 Broach Setter ID - NTPHEPATIC FUNCTION [id number] 05:21:00 Test Item Value Reference Range Interpretation Comments TOTAL PROTEIN (BEAKER) (test code = 4.8 gm/dL 6.0-8.3 L 770) ALBUMIN (BEAKER) (test code = 1145) 1.9 g/dL 3.5-5.0 L BILIRUBIN TOTAL (BEAKER) (test code 3.8 mg/dL 0.2-1.2 H = 377) BILIRUBIN DIRECT (BEAKER) (test 1.9 mg/dL 0.1-0.5 H code = 706) ALKALINE PHOSPHATASE (BEAKER) (test 70 U/L 40-150 code = 346) AST (SGOT) (BEAKER) (test code = 35 U/L 5-34 H 353) ALT (SGPT) (BEAKER) (test code = 12 U/L 6-55 347) Broach Setter ID - DALTON MSpecimen moderately ictericBASIC METABOLIC [id number] 05:15:00 Test Item Value Reference Range Interpretation Comments SODIUM (BEAKER) 133 meq/L 136-145 L (test code = 381) POTASSIUM (BEAKER) 3.3 meq/L 3.5-5.1 L (test code = 379) CHLORIDE (BEAKER) 102 meq/L 98-107 (test code = 382) CO2 (BEAKER) (test 23 meq/L 22-29 code = 355) BLOOD UREA NITROGEN 48 mg/dL 7-21 H (BEAKER) (test code = 354) CREATININE (BEAKER) 5.12 mg/dL 0.57-1.25 H (test code = 358) GLUCOSE RANDOM 96 mg/dL 70-105 (BEAKER) (test code = 652) CALCIUM (BEAKER) 8.1 mg/dL 8.4-10.2 L (test code = 697) EGFR (BEAKER) (test 8 mL/min/1.73 ESTIMAT ED GFR IS code = 1092) sq m NOT ACCURATE CREATININE CLEARANCE IN PREDICTING GLOMERULAR FILTRATION RATE . ESTIMATED GFR I S NOT APPLICABLE FOR DIALYSIS PATIEN TS. Broach Setter ID - DALTON MSpecimen moderately ictericPROTHROMBIN TIME/[id number] 04:37:00 Test Item Value Reference Range Interpretation Comments PROTIME (BEAKER) (test code = 19.8 seconds 11.9-14.2 H 759) INR (BEAKER) (test code = 370) 1.7 <=5.9 Effective 12/23/2018: PT Reference Range ChangeNew: 11.9-14.2 Previous: 11.7- 14.7RECOMMENDED COUMADIN/WARFARIN INR THERAPY RANGESSTANDARD DOSE: 2.0-3.0 Includes: PROPHYLAXIS for venous thrombosis, systemic embolization; TREATMENT for venous thrombosis and/or pulmonary embolus.HIGH RISK: Target INR is2.5-3.5 for patients wiht mechanical heart valves.SARS-CoV2/RT-PCR (Asymptomatic ONLY) 2020-01-15 01:48:00 Test Item Value Reference Range Interpretation Comments SARS-COV2/RT-PCR Not Detected Not Detected, (test code = Negative 94946-7) SARS-COV-2 [facility] PERFORMING LAB (test code = 20496-8) VALENTE (test code = Negative results do not VALENTE) preclude SARS-CoV-2 infection and should not be used as [...] of the Act. Fact Sheet for Healthcare Providers:https://www.Ebr[employer].com/Documents/Xper t%20Xpress%20SARS%20CoV- 2/Fact%20Sheets/302-3802 %39KKKB-YSD-2%20HEALTHCA RE%20PROVIDERS%20FACT%20 SHEET.pdf Fact Sheet for Healthcare Patients:https://www.[employer]/Documents/Xpert %20Xpress%20SARS%20CoV-2 /Fact%20Sheets/3023801% 93MRCP-ENK-1%20PATIENT%2 0FACT%20SHEET.pdf Performing Laboratory:[facility] [place] [address], [place] [address] [place], [place] [address]ARS-COV2/RT-PCR ([facility])2020-01-15 01:48:00 Test Item Value Reference Range Interpretation Comments SARS-COV2/RT-PCR (test Not Detected Not Detected, Negative code = 8060021) SARS-COV-2 PERFORMING LAB [facility] (test code = 5447524) Negative results do not preclude SARS-CoV-2 infection and should not be used as the sole basis for patient management decisions. Negative results must be combined with clinical observations, patient history, and epidemiological information. A false negative result may occur if a specimen is improperly collected, transported or handled.The limit of detection for this assay is 250 copies/mL.This SARS CoV-2 test is a rapid, real-time RT-PCR test intended for the qualitative detection of nucleic acid from SARS-CoV-2 in a nasopharyngeal swab specimen collected from individuals suspected of COVID-19 by their healthcare provider.This test has not been Food and Drug [...] is revoked under Section 564(g) of the Act.Fact Sheet for Healthcare Pro viders:https://www.e[employer]plicant/Documents/Xpert%20Xpress%20SARS%20CoV-2/Fact%20Sh eets/302-3802%73KQWP-LMH-1%20HEALTHCARE%20PROVIDERS%20FACT%20SHEET.pdfFact Sheet for Healthcare Patients:https://www.[employer]/Documents/Xpert%20Xpress%20SARS%20CoV-2/Fact%20Sheets/302-3801%20SARS-COV -2%20PATIENT%20FACT%20SHEET.pdfPerforming Laboratory:[facility] [place] [address]SOWMN METABOLIC [id number] 22:40:00 Test Item Value Reference Range Interpretation Comments SODIUM (BEAKER) 132 meq/L 136-145 L (test code = 381) POTASSIUM (BEAKER) 3.4 meq/L 3.5-5.1 L Specimen slightly (test code = 379) hemolyzed CHLORIDE (BEAKER) 101 meq/L 98-107 (test code = 382) CO2 (BEAKER) (test 23 meq/L 22-29 code = 355) BLOOD UREA NITROGEN 48 mg/dL 7-21 H (BEAKER) (test code = 354) CREATININE (BEAKER) 5.38 mg/dL 0.57-1.25 H Specimen slightly (test code = 358) hemolyzed GLUCOSE RANDOM 101 mg/dL 70-105 (BEAKER) (test code = 652) CALCIUM (BEAKER) 8.2 mg/dL 8.4-10.2 L (test code = 697) EGFR (BEAKER) (test 8 mL/min/1.73 ESTIMAT ED GFR IS code = 1092) sq m NOT ACCURATE CREATININE CLEARANCE IN PREDICTING GLOMERULAR FILTRATION RATE . ESTIMATED GFR I S NOT APPLICABLE FOR DIALYSIS PATIEN TS. Broach Setter ID - DBSpecimen moderately ictericHEPATIC FUNCTION [id number] 22:39:00 Test Item Value Reference Range Interpretation Comments TOTAL PROTEIN (BEAKER) 5.4 gm/dL 6.0-8.3 L Speci men slightly (test code = 770) hemolyzed ALBUMIN (BEAKER) (test 2.1 g/dL 3.5-5.0 L Speci men slightly code = 1145) hemolyzed BILIRUBIN TOTAL 4.7 mg/dL 0.2-1.2 H Specimen sli ghtly (BEAKER) (test code = hemoly zed 377) BILIRUBIN DIRECT 1.9 mg/dL 0.1-0.5 H Specimen sl ightly (BEAKER) (test code = hemoly zed 706) ALKALINE PHOSPHATASE 73 U/L 40-150 (BEAKER) (test code = 346) AST (SGOT) (BEAKER) 40 U/L 5-34 H Specimen slightly (test code = 353) hemolyzed ALT (SGPT) (BEAKER) 12 U/L 6-55 Specimen slightly (test code = 347) hemolyzed Broach Setter ID - DBSpecimen moderately ictericPROTHROMBIN TIME/[id number] 22:28:00 Test Item Value Reference Range Interpretation Comments PROTIME (BEAKER) (test code = 18.6 seconds 11.9-14.2 H 759) INR (BEAKER) (test code = 370) 1.6 <=5.9 Effective 12/23/2018: PT Reference Range ChangeNew: 11.9-14.2 Previous: 11.7- 14.7RECOMMENDED COUMADIN/WARFARIN INR THERAPY RANGESSTANDARD DOSE: 2.0-3.0 Includes: PROPHYLAXIS for venous thrombosis, systemic embolization; TREATMENT for venous thrombosis and/or pulmonary embolus.HIGH RISK: Target INR is2.5-3.5 for patients wiht mechanical heart valves.CBC W/PLT COUNT & AUTO [id number] 22:22:00 Test Item Value Reference Range Interpretation Comments WHITE BLOOD CELL COUNT (BEAKER) 2.3 K/ L 3.5-10.5 L (test code = 775) RED BLOOD CELL COUNT (BEAKER) 2.14 M/ L 3.93-5.22 L (test code = 761) HEMOGLOBIN (BEAKER) (test code = 8.5 GM/DL 11.2-15.7 L 410) HEMATOCRIT (BEAKER) (test code = 25.7 % 34.1-44.9 L 411) MEAN CORPUSCULAR VOLUME (BEAKER) 120.1 fL 79.4-94.8 H (test code = 753) MEAN CORPUSCULAR HEMOGLOBIN 39.7 pg 25.6-32.2 H (BEAKER) (test code = 751) MEAN CORPUSCULAR HEMOGLOBIN CONC 33.1 GM/DL 32.2-35.5 (BEAKER) (test code = 752) RED CELL DISTRIBUTION WIDTH 15.5 % 11.7-14.4 H (BEAKER) (test code = 412) PLATELET COUNT (BEAKER) (test code 44 K/CU MM 150-450 L = 756) MEAN PLATELET VOLUME (BEAKER) 11.3 fL 9.4-12.3 (test code = 754) NUCLEATED RED BLOOD CELLS (BEAKER) 0 /100 WBC 0-0 (test code = 413) NEUTROPHILS RELATIVE PERCENT 56 % (BEAKER) (test code = 429) LYMPHOCYTES RELATIVE PERCENT 24 % (BEAKER) (test code = 430) MONOCYTES RELATIVE PERCENT 12 % (BEAKER) (test code = 431) EOSINOPHILS RELATIVE PERCENT 8 % (BEAKER) (test code = 432) BASOPHILS RELATIVE PERCENT 0 % (BEAKER) (test code = 437) NEUTROPHILS ABSOLUTE COUNT 1.26 K/ L 1.56-6.13 L (BEAKER) (test code = 670) LYMPHOCYTES ABSOLUTE COUNT 0.54 K/ L 1.18-3.74 L (BEAKER) (test code = 414) MONOCYTES ABSOLUTE COUNT (BEAKER) 0.26 K/ L 0.24-0.36 (test code = 415) EOSINOPHILS ABSOLUTE COUNT 0.18 K/ L 0.04-0.36 (BEAKER) (test code = 416) BASOPHILS ABSOLUTE COUNT (BEAKER) 0.01 K/ L 0.01-0.08 (test code = 417) IMMATURE GRANULOCYTES-RELATIVE 0 % 0-1 PERCENT (BEAKER) (test code = 2801) ALPHA FETOPROTEIN (AFP), TUMOR [id number] 18:31:00 Test Item Value Reference Range Interpretation Comments ALPHA-FETOPROTEIN (BEAKER) (test code < ng/mL <10.0 = 1094) Broach Setter ID - DBBASIC METABOLIC [id number] 15:23:00 Test Item Value Reference Range Interpretation [...] 697) EGFR (BEAKER) (test 24 mL/min/1.73 ESTIMA MADAI GFR IS code = 1092) sq m NOT ACCURATE CREATININE CLEARANCE IN PREDICTING GLOMERULAR FILTRATION RATE . ESTIMATED GFR I S NOT APPLICABLE FOR DIALYSIS PATIEN TS. Broach Setter ID - BSPlease sent STATSpecimen moderately ictericHEPATIC FUNCTION [id number] 15:18:00 Test Item Value Reference Range Interpretation [...] (test code = 17 U/L 6-55 347) Broach Setter ID - BSPlease sent STATSpecimen moderately ictericPROTHROMBIN TIME/INR 2020-01-03 15:12:00 Test Item Value Reference Range [...] for patients wiht mechanical heart valves.Please sent STATCB W/PLT COUNT & AUTO [id number] 15:05:00 Test Item Value Reference Range Interpretation [...] (BEAKER) (test code = 2801) CT, ABDOMEN, [id number] 15:58:00Referring: [facility] CLINICAL HISTORY: [...] series to appropriately assess washout features. Signed: Shoail Marinelli MDReport Verified Date/Time: 05/02/2017 15:58:35 Reading Location: [address] Body Reading Room CBC W/PLT COUNT & AUTO [id number] 17:30:00 Test Item Value Reference Range Interpretation [...] code = 417) 0.00ALPHA FETOPROTEIN (AFP), TUMOR [id number] 16:31:00 Test Item Value Reference Range Interpretation Comments ALPHA-FETOPROTEIN (BEAKER) (test 3.3 ng/mL <10.0 code = 1094) Effective 06/14/2014: Reference Range ChangeNew: <10.0 Previous: 0.0-8.0 BASIC METABOLIC [id number] 16:13:00 Test Item Value Reference Range Interpretation [...] 697) EGFR (BEAKER) (test 80 mL/min/1.73 ESTIMA MADAI GFR IS code = 1092) sq m NOT ACCURATE CREATININE CLEARANCE IN PREDICTING GLOMERULAR FILTRATION RATE . ESTIMATED GFR I S NOT APPLICABLE FOR DIALYSIS PATIEN TS. Specimen slightly ictericLIPID [id number] 16:13:00 Test Item Value Reference Range Interpretation [...] Very High >=190 Specimen slightly ictericHEPATIC FUNCTION [id number] 16:13:00 Test Item Value Reference Range Interpretation [...] (test code = 364) Specimen slightly ictericPROTHROMBIN [id number] 16:13:00 Test Item Value Reference Range Interpretation Comments PROTIME (BEAKER) (test code = 14.4 seconds 11.7-14.7 759) INR (CLAUDIAAKER) (test code = 370) 1.1 <=5.9 RECOMMENDED COUMADIN/WARFARIN INR THERAPY RANGESSTANDARD DOSE: 2.0 - 3.0 Includes: PROPHYLAXIS forvenous thrombosis, systemic embolization; TREATMENT for venous thrombosis and/or pulmonary embolus.HIGH RISK: Target INR is 2.5-3.5 for patients with mechanical heart valves.
--- OUTSIDE RECORDS SUMMARY | 2020-02-18 09:04 | XMS REPORT ---
:1955 Author Organization [employer] Care Team Providers Name Role Phone Mitzy English Provider Role Unavailable Allergies, Adverse Reactions, Alerts Substance Reaction Event Type Tetracycline HCl hives Drug Allergy Levaquin vomiting/diarrhea Drug Allergy Erythromycin vomiting/diarrhea Drug Allergy Problems Problem Type Condition Code Onset Dates Condition Statu s Problem GERD without esophagitis K21.9 Act rosalba Problem Urinary tract infection, site not N39.0 Active specified Problem Encounter for general adult medical Z00.01 Active examination with abnormal findings Problem Jaundice R17 Active Problem Alcoholic cirrhosis of liver with K70.31 Active ascites Problem Hospital discharge follow-up Z09 Active Problem Acute cystitis with hematuria N30.01 Active Problem Dysuria R30.0 Active Problem 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 Problem Wheezing R06.2 Active Assessment ARAUZ (nonalcoholic steatohepatitis) K75.81 Active Assessment Hospital discharge follow-up Z09 Active Assessment Jaundice R17 Active Problem Hematuria, unspecified R31.9 Activ e Assessment 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
--- OUTSIDE RECORDS SUMMARY | 2020-02-18 09:05 | XMS REPORT ---
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
--- OUTSIDE RECORDS SUMMARY | 2020-02-18 09:06 | XMS REPORT | Clinical Summary ---
:1955 Author Organization [employer] Address [address] [place] [address] Care Team Providers Name Role Phone Nahun [...] Advance Directives For more information, please contact: [phone] Type Date Recorded Patient Patient Educator Explanati on Advance Directives, Living Will and Medical Power of Mobile Service Rv Technician
--- OUTSIDE RECORDS SUMMARY | 2020-02-18 09:10 | XMS REPORT | Clinical Summary ---
:1955 Author Organization [facility] Address [address] [place] [address] Care Team Providers Name Role Phone Zeinab [...] Brigitte Hamilton 02/16/2020 Documentation Central Scheduling Brigitte Hamilton 02/16/2020 Orders Only Transplant Hepatology Cary Talley [...] evaluation for liver transplant; Acute and subac [place] hepatic failure with coma (HCC) 02/15/2020 Telephone [...] Orders Only Hepatology Laron, Line Hepatic Kastrup, MEDIA SERVICES DIRECTOR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) 02/03/2020 Documentation Hepatology [...] LV) 01/18/2020 Outside Orders Radiology Mitzy English, MEDIA SERVICES DIRECTOR 01/17/2020 Anesthesia Event Gastroenterology Tigist Colvin CRNA [...] Line Obesity (BMI 35.0-39.9 without comorbidity); Kastrup, MEDIA SERVICES DIRECTOR Adrenal mass, l eft ; Screening for m alignant neoplasm; Elevated serum creatinine; Other ascites 12/31/2019 Telephone Hepatology Dai Healy MA 12/21/2019 Documentation Hepatology Laron, Line Kastrup, MEDIA SERVICES DIRECTOR 12/17/2019 Abstract Hepatology Ivanna Healy MA 12/16/2019 Abstract Hepatology Janna Aparicio RN 12/16/2019 Abstract Hepatology Janna Aparicio RN 12/16/2019 Abstract Hepatology Janna Aparicio RN 12/15/2019 Audio - Hepatology Laron Line Portal hypert ension (Primary Dx); Telemedicine Kastrup, MEDIA SERVICES DIRECTOR 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 [id number] AP Routine 01/19/2020 9:43 PHENOTYP PM CDT [...] 452 ms QTC Calculation(Bazett) 458 ms P [place] 59 degrees R [place] 32 degrees T [place] 56 degrees Normal sinus rhythm Normal ECG [...] procedure are i n the results section. [id number]\\, Routine 01/15/2020 4:17 Re sults for this [...] are i n the results section. SARS-COV2/RT-PCR ([facility] STAT 01/14/2020 7:28 R esults [...] WBC 2.5 (L) 3.5 - 10.5 K/L [facility] RBC 2.31 (L) 3.93 - 5.22 M/L [facility] Hemoglobin 8.8 (L) 11.2 - 15.7 GM/DL [facility] Hematocrit 28.0 (L) 34.1 - 44.9 % [facility] MCV 121.2 (H) 79.4 - 94.[address] [facility] MCH 38.1 (H) 25.6 - 32.2 [address] [facility] MCHC 31.4 (L) 32.2 - 35.5 GM/DL [facility] RDW 20.9 (H) 11.7 - 14.4 % [facility] Platelets 48 (L) 150 - 450 K/CU MM [facility] MPV 10.0 9.4 - 12.[address] [facility] nRBC 0 0 - 0 /100 WBC [facility] % Neutros 62 % [facility] % Lymphs 24 % [facility] % Monos 10 % [facility] % Eos 4 % [facility] % Baso 1 % [facility] # Neutros 1.56 1.56 - 6.13 K/L [facility] # Lymphs 0.60 (L) 1.18 - 3.74 K/L [facility] # Monos 0.24 0.24 - 0.36 K/L [facility] # Eos 0.10 0.04 - 0.36 K/L [facility] # Baso 0.02 0.01 - 0.08 K/L [facility] Immature 0 0 - 1 % [facility] Granulocytes-Relative MEDICAL CE NTER Specimen Blood Performing Organization Address [facility] Centercode Phone Number [address] [address] CENTER Prothrombin time/INR (02/15/2020 12:29 PM CDT)Only the most recent of17 results within the time period is included. Protime 18.1 (H) 11.9 - 14.2 seconds [facility] INR 1.5 <=5.9 [facility] Specimen Blood Narrative Performed At Effective 12/23/2018: PT Reference Range [facility] Change New: 11.9-14.2Previous: 11.7-14.7 RECOMMENDED COUMADIN/WARFARIN INR THERAPY RANGES STANDARD DOSE: 2.0-3.0Includes: PROPHYLAXIS for venous thrombosis, systemic embolization; TREATMENT for venous thrombosis and/or pulmonary embolus. HIGH RISK: Target INR is 2.5-3.5 for patients wiht mechanical heart valves. Performing Organization Address [facility] Centercoid Phone Number [address] [address] CENTER Magnesium (02/15/2020 12:29 PM CDT)Only the most recent of13 resultswithin the time period is included. Magnesium 1.8 1.6 - 2.6 mg/dL [facility] Specimen Blood Narrative Performed At Class C Driver ID - LM [facility] Performing Organization Address City/[facility]/Zipcode Phone Number [address] [address] CENTER Bilirubin, direct (02/15/2020 12:29 PM CDT)Only the most recent of4 results within the time period is included. Bilirubin, Direct 2.5 (H) 0.1 - 0.5 mg/dL [facility] Specimen Blood Narrative Performed At Class C Driver ID - LM [facility] CENTER Performing Organization Address City/State/Zipcode Phone Number [facility] [address] [place] [address] CENTER Comprehensive metabolic panel (02/15/2020 12:29 PM CDT)Only the most recent of8 resultswithin the time period is included. Protein, Total 6.5 6.0 - 8.3 gm/dL [facility] Albumin 3.2 (L) 3.5 - 5.0 g/dL [facility] Alkaline Phosphatase 107 40 - 150 U/L [facility] Total Bilirubin 7.4 (H) 0.2 - 1.2 mg/dL [facility] Sodium 140 136 - 145 meq/L [facility] Potassium 4.1 3.5 - 5.1 meq/L [facility] Chloride 107 98 - 107 meq/L [facility] CO2 26 22 - 29 meq/L [facility] BUN 23 (H) 7 - 21 mg/dL [facility] Creatinine 1.33 (H) 0.57 - 1.25 mg/dL [facility] Glucose 87 70 - 105 mg/dL [facility] Calcium 9.5 8.4 - 10.2 mg/dL [facility] AST 39 (H) 5 - 34 U/L [facility] ALT 16 6 - 55 U/L [facility] EGFR 40Comment: ESTIMATED GFR mL/min/1.73 sq m [facility] IS NOT ACCURATE [facility] CREATININE CLEARANCE IN PREDICTING GLOMERULAR FILTRATION RATE. ESTIMATED GFR IS NOT APPLICABLE FOR DIALYSIS PATIENTS. Specimen Blood Narrative Performed At Class C Driver ID - LM [facility] Specimen moderately icteric Performing Organization Address City/State/Zipcode Phone Number [facility] [address] [place] [address] CENTER PLATELET ESTIMATION (02/08/2020 10:23 AM CDT) Platelet Estimate DECREASED (A) ADEQUATE [facility] Specimen Narrative Performed At FASTING:YES [facility] FASTING: YES Resulting Agency Comment Performing Organization Information: Site ID: RGA Name: [facility] Address: [address] [place] [id number] Director: Jj Carrasco Performing Organization Address City/State/Zipcode Phone Number [facility] [address] [place] [address] [facility] CBC with platelet count + automated [...] Performing Organization Information: Site ID: [id number] Name: [facility] Address: [address] [place] [id number] Director: Jj Carrasco Performing Organization Address City/State/Zipcode Phone Number [facility] [address] [place] [address] [facility] RHYTHM STRIP - SCAN (01/27/2020 10:00 AM [...] perfo rmance characteristics have been determined by [employer] [facility] [place]. It has not been cleared or approved by FDA. This assay has been validated pursuant to the CLIA regulations and is used for clinical purposes. Normetanephrine 213 (H) < OR = 148 pg/mL [facility] Comment: INCORPORATED This test was developed and its analytical perfo rmance characteristics have been determined by [employer] [facility] [place]. It has not been cleared or approved [...] 2008. For additional information, please refer to http://education.Refresh Body/faq/MetFra ctFree (This link is being provided for informational/e ducational purposes only.) This test was developed and its analytical perfo rmance characteristics have been determined by [employer] [facility]. It has not been cleared or approved by FDA. This assay has been validated pursuant to the CLIA regulations and is used for clinical purposes. Specimen Blood Narrative Performed At Performing Lab [facility] EZ [facility] tute [address] [place] [address] Mark Encarnacion MD, PhD, AMINA Performing Organization Address City/[facility]/Zipcode Phone Number [employer] [place] [address] [employer]ATED [address] [facility] Calcium, Ionized (01/26/2020 3:50 AM CDT)Only the most recent of7 resultswithin the time period is included. Calcium, Ion 1.11 (L) 1.12 - 1.27 mmol/L [facility] pH, Blood 7.41 [facility] Specimen Blood Performing Organization Address City/[facility]/Zipcode Phone Number [facility] [address] [place] [address] CENTER Phosphorus (01/26/2020 3:50 AM CDT)Only the most recent of7 resultswithin the time period is included. Phosphorus 3.2 2.3 - 4.7 mg/dL [facility] Specimen Blood Narrative Performed At Class C Driver ID - BS [facility] Performing Organization Address City/[facility]/Zipcode Phone Number [facility] [address] [place] [address] CENTER Hepatic function panel (01/26/2020 3:50 AM CDT)Only the most recent of13 resultswithin the time period is included. Protein, Total 5.7 (L) 6.0 - 8.3 gm/dL [facility] Albumin 3.4 (L) 3.5 - 5.0 g/dL [facility] Total Bilirubin 6.9 (H) 0.2 - 1.2 mg/dL [facility] Bilirubin, Direct 2.2 (H) 0.1 - 0.5 mg/dL [facility] Alkaline Phosphatase 58 40 - 150 U/L [facility] AST 36 (H) 5 - 34 U/L [facility] ALT 13 6 - 55 U/L [facility] Specimen Blood Narrative Performed At Class C Driver ID - BS [facility] Specimen moderately icteric Performing Organization Address City/[facility]/Zipcode Phone Number [facility] [address] [place] [address] [place] Manual Differential (01/25/2020 3:47 AM CDT)Only the most recent of7 results within the time period is included. % Neutros 66 % [facility] % Lymphs 24 % [facility] % Monos 7 % [facility] % Eos 2 % [facility] % Metamyelo 1 (H) 0 - 0 % [facility] # Neutros 0.92 (L) 1.56 - 6.13 K/ul [facility] # Lymphs 0.34 (L) 1.18 - 3.74 K/ul [facility] # Monos 0.10 (L) 0.24 - 0.36 K/uL [facility] # Eos 0.03 (L) 0.04 - 0.36 K/uL [facility] # Metamyelo 0.01 (H) 0.00 - 0.00 K/uL [facility] Total Counted [address] [facility] Smudge Cells Present [facility] Giant Platelet Present [facility] Anisocytosis 2+ moderate [facility] Macrocytes [address]+ [address] [facility] Poikilocytes 2+ moderate [facility] Buxton Cells 2+ moderate [facility] Artifact [facility] Platelet Conc Decreased [facility] Specimen Blood Narrative Performed At Class C Driver ID - [id number] [facility] Class C Driver ID - Maria Del Carmen Silvio User comments: Slide comments: Performing Organization Address City/State/Zipcode Phone Number [facility] [address] [place] [address] CENTER Basic Metabolic Panel (01/25/2020 3:47 AM CDT)Only the most recent of10 results within the time period is included. Sodium 140 136 - 145 meq/L [facility] Potassium 3.4 (L) 3.5 - 5.1 meq/L [facility] Chloride 105 98 - 107 meq/L [facility] CO2 25 22 - 29 meq/L [facility] BUN 31 (H) 7 - 21 mg/dL [facility] Creatinine 2.35 (H) 0.57 - 1.25 mg/dL [facility] Glucose 108 (H) 70 - 105 mg/dL [facility] Calcium 8.7 8.4 - 10.2 mg/dL [facility] EGFR 21Comment: ESTIMATED GFR IS mL/min/1.73 sq m [facility] NOT ACCURATE [facility] CLEARANCE IN PREDICTING GLOMERULAR FILTRATION RATE. ESTIMATED GFR IS NOT APPLICABLE FOR DIALYSIS PATIENTS. Specimen Blood Narrative Performed At Class C Driver ID - PIAYA L [facility] Specimen moderately icteric Performing Organization Address City/State/Zipcode Phone Number [facility] [address] [place] [address] CENTER TRANSFUSION SERVICE REPORT - [...] AM CDT) Narrative Performed At Epifanio Giles, AUTOMOTIVE PARTS COUNTERPERSON, ACCOUNT SERVICE REPRESENTATIVE 2019 10:52 AM [facility] PFT CHARTING REPORT Infection Control/Hand Hygiene procedure s followed throughout the encounter with patient: Yes Patient Identification Method: Patient n celia verified on armband, and Medical record on armband, Is the order complete?: Yes Account ID#: [id number] Patient Name: Cici Calderon Birthdate: 1955 Age: [...] CDT) Narrative Performed At Epifanio Giles RRT, ACCOUNT SERVICE REPRESENTATIVE 2019 10:52 AM [facility] PFT CHARTING REPORT Infection Control/Hand Hygiene procedure s followed throughout the encounter with patient: Yes Patient Identification Method: Patient n celia verified on armband, and Medical record on armband, Is the order complete?: Yes Account ID#: [id number] Patient Name: Cici Calderon Birthdate: 1955 Age: [...] CDT) Narrative Performed At Epifanio Giles RRT, [facility] 2019 10:52 AM [facility] PFT CHARTING REPORT Infection Control/Hand Hygiene procedure s followed throughout the encounter with patient: Yes Patient Identification Method: Patient n celia verified on armband, and Medical record on armband, Is the order complete?: Yes Account ID#: [id number] Patient Name: Cici Calderon Birthdate: 1955 Age: [...] CDT) Narrative Performed At Janina Meehan RRT, [facility] 20192:39 PM [facility] PFT CHARTING REPORT Infection Control/Hand Hygiene procedure s followed throughout the encounter with patient: Yes Patient Identification Method: Patient n celia verified on armband, and Medical record on armband, Is the order complete?: Account ID#: [id number] Patient Name: Cici Calderon Birthdate: 1955 Age: [...] ABO A Pos [place] UNIT NUMBER [id number] [place] Status TX_TIMEINCHART [place] Blood Bank Product RED BLOOD CELLS [place] PRODUCT CODE [id number] [place] Specimen Other Performing Organization Address City/[facility]/Zipcode Phone Number [place] B-type Natriuretic Factor (BNP) (01/23/2020 4:32 AM CDT)Only the most recent of 2 resultswithin the time period is included. BNP 2,179 (H) 0 - 100 pg/mL [facility] Specimen Blood Narrative Performed At Class C Driver ID - MITCH Linares [facility] Performing Organization Address City/[facility] Centercode Phone Number [address] [address] CENTER Prepare Leuko-Red PLT (01/22/2020 11:54 PM CDT)Only the most recent of2 results within the time period is included. Unit ABO A Pos [place] UNIT NUMBER [id number] [place] Status WORK IN PROGRESS [place] Blood Bank Product PLATELETS [place] PRODUCT CODE [id number] SAFETRACE TX Unit ABO O Pos SAFETRACE TX UNIT NUMBER [id number] SAF[place]ACE [place] Status TX_TIMEINCHART SAFETRACE [place] Blood Bank Product PLATELETS [place] PRODUCT CODE [id number] [place] Specimen Blood Performing Organization Address [facility] Phone Number [place] Transfuse Leuko-Red RBC (01/22/2020 2:30 PM CDT)Only the most recent of4 resultswithin the time period is included.Cortisol (01/22/2020 8:23 AM CDT)Only the most recent of2 resultswithin the time period is included. Cortisol, Total 1.6 (L) 3.7 - 19.4 ug/dL [facility] Specimen Blood Narrative Performed At Class C Driver ID - MITCH Linares [facility] Performing Organization Address City/[facility]/Zipcode Phone Number [address] [address] CENTER ABORH, manual (01/22/2020 4:34 AM CDT) ABO Grouping A [facility] Rh Factor POS [facility] Specimen Blood Performing Organization Address [facility] Centercoid Phone Number [address] [address] Direct AHG (RAMIREZ)/Direct Jewel (01/22/2020 4:34 AM CDT) Direct AHG-IGG NEGATIVE [facility] Direct AHG-C3B, C3D NEGATVIE [facility] Specimen Blood Performing Organization Address [facility]/Zipcode Phone Number [address] [address] Body fluid culture + gram stain (01/21/2020 4:54 PM CDT) Result No growth [facility] Gram Stain Result <1+ White blood cells seen [facility] Gram Stain Result No organisms seen [facility] Specimen Body Fluid Performing Organization Address [facility]/Zipcode Phone Number [address] [address] CENTER Body fluid cell count with differential (01/21/2020 4:54 PM CDT) Appearance Hazy (A) Clear [facility] Color Cele (A) Colorless, Straw [facility] RBCs 4,000 (H) <=1 /cu mm [facility] Adjusted WBC Count 86 (H) <=5 /cu mm [facility] Lining Cells 1 <=1 /cu mm [facility] % Segs 7 % [facility] % Lymphs 83 % [facility] % Monos 10 % [facility] % Eos 0 % [facility] % Baso 0 % [facility] Container Body Fluid Sterile Vial [facility] Specimen Body Fluid Performing Organization Address City/State/Zipcode Phone Number [facility] [address] [place] [address] CENTER US paracentesis (01/21/2020 4:40 PM CDT) Specimen Narrative Performed At FINAL REPORT [facility] Ultrasound guided paracentesis Clinical History:Ascites. Sedation: None. Sales Operations Manager: Christine Ward PA-C Supervising Physician: Natan Chisholm MD Test Facility Engineer:None. Estimated Blood Loss: < 1 mL. Specimen: [...] anesthesia was achieved with lidocaine, a 5 [place]orese one-step catheter was advanced into the peritoneal cavity under ultrasound guidance. After completion of drainage, the cathet er was removed. There was no evidence of complication. Impression: Successful ultrasound guided paracentesi s. Signed: Natan Chisholm MD Report Verified Date/Time:01/24/2020 09:43:05 Reading Location: [facility] [id number] [facility] Reading Room Procedure Note Interface, External Ris In - 01/24/2020 9:45 AM CDT FINAL REPORT Ultrasound guided paracentesis Clinical History: Ascites. Sedation: None. Sales Operations Manager: Christine Ward PA-C Supervising Physician: Natan Chisholm MD Test Facility Engineer: None. Estimated Blood Loss: < 1 mL. [...] anesthesia was achieved with lidocaine, a 5 [place]orese one-step catheter was advanced into the peritoneal cavity under ultrasound guidance. After completion of drainage, the cathet er was removed. There was no evidence of complication. Impression: Successful ultrasound guided paracentesi s. Signed: Natan Chisholm MD Report Verified Date/Time: 01/24/2020 0 9:43:05 Reading Location: [facility] [id number] [facility] Reading Room Performing Organization Address City/State/Zipcode Phone Number [facility] Peripheral Blood Smear - Hold only (01/21/2020 9:31 AM CDT) Peripheral Smear Save saved [facility] Specimen Blood Performing Organization Address City/State/Zipcode Phone Number [facility] [address] [place] [address] CENTER Dexamethasone serum level (01/21/2020 9:31 AM CDT) Scan Result [facility] Specimen Blood Narrative Performed At This result has an attachment that is no t available. Performing Organization Address City/State/Zipcode Phone Number [facility] [address] [facility] [place] Reticulocyte count (01/21/2020 9:31 AM CDT)Only the most recent of2 results within the time period is included. % Retic 5.3 (H) 0.5 - 1.7 % [facility] Specimen Blood Narrative Performed At Class C Driver ID - [id number] [facility] Performing Organization Address City/State/Zipcode Phone Number [facility] [address] [place] [address] CENTER XR chest 1 view [...] MD Report Verified Date/Time:01/21/2020 10:03:32 Reading Location: [place] [employer] y Reading Room Procedure Note Interface, External [...] Verified Date/Time: 01/21/2020 1 0:03:32 Reading Location: [employer] y Reading Room Performing Organization Address City/State/Zipcode Phone Number RIS Metanephrines, 24 hour urine (01/20/2020 10:51 PM CDT) TOTAL VOLUME 1000 mL [facility] Metanephrine 205 90 - 315 [facility] Comment: mcg/24 h INCORPORATED This test was developed and its analytical perfo rmance characteristics have been determined by [employer] [facility]. It has not been cleared or approved by FDA. This assay has been validated pursuant to the CLIA regulations and is used for clinical purposes. Normetanephrine [phone] 494 [facility] Comment: mcg/24 h INCORPORATED This test was developed and its analytical perfo rmance characteristics have been determined by [employer] [facility]. It has not been cleared or approved [...] perfo rmance characteristics have been determined by [facility]. It has not been cleared or approved by FDA. This assay has been validated pursuant to the CLIA regulations and is used for clinical purposes. Specimen Urine Narrative Performed At Performing Lab [facility] [address] [place] [address] I Shashank ADRIAN, PhD, AMINA Performing Organization Address City/State/Zipcode Phone Number [facility] [place] [address] 0 INCORPORATED [address] [facility] Catecholamines, Fractionated, 24hr urine (01/20/2020 10:51 [...] perfo rmance characteristics have been determined by [employer] [facility]. It has not been cleared or approved by FDA. This assay has been validated pursuant to the CLIA regulations and is used for clinical purposes. Norepinephrine 9 (L) 15 - 100 mcg/24 [facility] Comment: h INCORPORATED This test was developed and its analytical perfo rmance characteristics have been determined by [employer] [facility]. It has not been cleared or approved by FDA. This assay has been validated pursuant to the CLIA regulations and is used for clinical purposes. Calculated Total E+Ne 9 (L) 26 - 121 mcg/24 [facility] Comment: h INCORPORATED This test was developed and its analytical perfo rmance characteristics have been determined by [employer] [facility]. It has not been cleared or approved [...] perfo rmance characteristics have been determined by [facility]. It has not been cleared or approved by FDA. This assay has been validated pursuant to the CLIA regulations and is used for clinical purposes. Creatinine,24 Hr Urin 0.88 0.50 - 2.15 [facility] g/24 h INCORPORATED Specimen Urine Narrative Performed At Performing Lab [facility] [address] [place] [address] Mark Encarnacion MD, PhD, AMINA Performing Organization Address City/[facility] Centercode Phone Number [facility] [place] [address] INCORPORATED [address] [facility] [address] Type and screen, automated (01/20/2020 8:39 PM CDT)Only the most recent of2 resultswithin the time period is included. ABO/RH AUTOMATED (BEREBECCA) A POSITIVE [facility] Ab Scrn NEGATIVE [facility] Specimen Blood Performing Organization Address City/[facility] Centercode Phone Number [facility] [address] [place] [address] MR abdomen without IV contrast (01/20/2020 5:54 PM CDT) Specimen Narrative Performed At FINAL REPORT [facility] TECHNIQUE: MRI of the abdomen WITHOUT in [...] MD Report Verified Date/Time:01/21/2020 07:51:30 Reading Location: [facility] Reading Room - [place] [address]9 Procedure Note Interface, External Ris In [...] Verified Date/Time: 01/21/2020 0 7:51:30 Reading Location: [facility] Reading Room - [place] [address]9 Performing Organization Address City/State/Zipcode Phone Number GE RIS Urinalysis w/Microscopic + Reflex to Culture (01/19/2020 11:19 PM CDT) [facility], UA Yellow [facility] Clarity, UA Hazy [facility] Specific Carmen, UA 1.017 1.001 - 1.035 [facility] pH, UA 5.5 5.0 - 8.[address] [facility] Protein, UA 20 mg/dL (A) Negative [facility] Glucose, UA Negative Negative [facility] Ketones, UA Negative Negative [facility] Bilirubin, UA Negative Negative [facility] Blood, UA Small (A) Negative [facility] Nitrite, UA Negative Negative [facility] Leukocytes, UA Trace (A) Negative [facility] Urobilinogen, UA 0.2 0.2 - 1.0 mg/dL [facility] RBC, UA 1 /HPF [facility] WBC, UA 3 /HPF [facility] Bacteria, UA Rare [facility] Squam Epithel, UA 3 /HPF [facility] Hyaline Casts, UA 3 /LPF [facility] Specimen Source [facility] Specimen Urine Performing Organization Address [facility] Centercode Phone Number [address] [address] [place] Sodium, random urine (01/19/2020 11:19 PM CDT)Only the most recent of3 results within the time period is included. Sodium Urine <20 meq/L [facility] Specimen Urine Narrative Performed At Reference Range: No Normals [facility] Class C Driver ID - PIAYA L Performing Organization Address [facility] Centercode Phone Number [address] [address] [place] Urinalysis w/Microscopic (01/19/2020 11:19 PM CDT)Only the most recent of2 resultswithin the time period is included. Color, UA Yellow [facility] Clarity, UA Hazy [facility] Specific Carmen, UA 1.017 1.001 - 1.035 [facility] pH, UA 5.5 5.0 - 8.0 [facility] Protein, UA 20 mg/dL (A) Negative [facility] Glucose, UA Negative Negative [facility] Ketones, UA Negative Negative [facility] Bilirubin, UA Negative Negative [facility] Blood, UA Small (A) Negative [facility] Nitrite, UA Negative Negative [facility] Leukocytes, UA Trace (A) Negative [facility] Urobilinogen, UA 0.2 0.2 - 1.0 mg/dL [facility] RBC, UA 1 /HPF [facility] WBC, UA 3 /HPF [facility] Bacteria, UA Rare [facility] Squam Epithel, UA 3 /HPF [facility] Hyaline Casts, UA 3 /LPF [facility] Specimen Source [facility] Specimen Urine Narrative Performed At Class C Driver ID - [auto] [facility] Class C Driver ID - tech Performing Organization Address City/State/Zipcode Phone Number [facility] [address] [place] [address] [place] Blood Culture - Routine (Right Venipuncture) (01/19/2020 9:45 PM CDT)Only the most recent of4 resultswithin the time period is included. Result No growth in 5 days [facility] Specimen Blood Performing Organization Address [facility]/Zipcode Phone Number [address] [address] [place] [id number] PHENOTYP (01/19/2020 9:43 PM CDT) Specimen Blood Narrative Performed At This result has an attachment that is no t available. Performing Organization Address [facility] Centercode Phone Number [facility] [address] [place], [place] Blood gas, arterial (01/19/2020 3:44 PM CDT) pH, Arterial 7.42 7.35 - 7.45 [facility] pCO2, Arterial 36 35 - 45 mmHg [facility] pO2, Arterial 78 (L) 80 - 90 mmHg [facility] O2 Sat, Arterial 96.2 96.0 - 97.0 % [facility] HCO3, Arterial 23 21 - 29 mmol/L [facility] Base Excess, Arterial -1.9 -2.0 - 3.0 mmol/L [facility] Patient Temperature 36.1 C [facility] FIO2 28.0 % [facility] Specimen Blood, Arterial Performing Organization Address [facility] Centercode Phone Number [address] [address] CENTER Cryptococcal antigen (01/19/2020 3:04 PM CDT) Cryptococcal Antigen, Serum Negative Negative, Interferen ce [facility] Specimen Blood Performing Organization Address [facility]/Zipcode Phone Number [address] [address] CENTER Rubeola antibody IgG (01/19/2020 [...] patient. For additional information, please refer to http://education.BitWine/faq/YKP781 (This link is being provided for informational/ educational purposes only.) Specimen Blood Narrative Performed At Performing Lab [facility] *QDID Ku [facility]ious [facility] [employer] [address] [place] [phone] Sudhakar Hargrove MD Performing Organization Address [facility] Centercode Phone Number [facility] [place] [address] [address] [place] [address] Rubella antibody, IgG (01/19/2020 3:04 PM CDT) Rubella IgG Quant 127.0 (H) <8.0 IU/mL [facility] Specimen Blood Narrative Performed At Rubella IgG Result Interpretation: [facility] </= 7.0 IU/mL Negative - Presumed non-immune 8.0 - 9.9 IU/mL [employer] >= 10.0 IU/mL Positive - Presumed immune Performing Organization Address [facility] Centercode Phone Number [facility] [address] [place] [address] CENTER Varicella zoster antibody, IgG (01/19/2020 3:04 PM CDT) Varicella IgG 3.6 [facility] Specimen Blood Narrative Performed At VARICELLA ZOSTER RESULT INTERPRETATIONS: [facility] <=0.8 AlNonreactive:Presumed non-immune to VZV 0.9-1.0 AlEquiv ocal >=1.1 AlReactive:Presumed immune to VZV Performing Organization Address [facility]/State/Zipcode Phone Number [facility] [address] [place] [address] CENTER Mumps antibody, IgG (01/19/2020 [...] Specimen Blood Narrative Performed At Performing Lab [facility] *QDID [facility] [employer] [address] [place] [phone] Sudhakar Hargrove MD Performing Organization Address City/[facility] Centercode Phone Number [facility] [place] [address] INCORPORATED [address] [facility] US breast bilateral (01/19/2020 9:10 AM [...] MD Report Verified Date/Time:01/19/2020 09:52:28 Reading Location: [address] Mammo Re ading Room Procedure Note [...] Verified Date/Time: 01/19/2020 0 9:52:28 Reading Location: [address] Mammo Re ading Room Performing Organization Address City/[facility] Centercode Phone Number RIS Aldosterone (01/19/2020 4:11 AM CDT) Aldosterone 22 ng/dL [employer] Comment: Adult Reference Ranges for Aldosterone: Upright 8:00-10:00 am< or = 28 ng/d L Upright 4:00-6:00 pm < or = 21 ng/d L Supine8:00-10:00 am3-16 ng/dL This test was developed and its analytical perfo rmance characteristics have been determined by [employer] [facility]. It has not been cleared or approved by FDA. This assay has been validated pursuant to the CLIA regulations and is used for clinical purposes. Specimen Blood Narrative Performed At Performing Lab [facility] [employer] [facility] t[facility] [address] [place] [address] Mark Encarnacion MD, PhD, AMINA Performing Organization Address [facility] Centercoid Phone Number [facility] [place] [address] INCORPORATED [address] [facility] Renin, plasma (01/19/2020 4:11 AM CDT) PRA,LC/MS/MS 1.51 0.25 - 5.82 [employer] Comment: ng/mL/h INCORPORATED This test was developed and its analytical perfo rmance characteristics have been determined by [employer] [facility]. It has not been cleared or approved by FDA. This assay has been validated pursuant to the CLIA regulations and is used for clinical purposes. Specimen Blood Narrative Performed At Performing Lab [facility] [employer] [employer] [address] [address] [place] [address] Mark Encarnacion MD, PhD, AMINA Performing Organization Address City/State/Zipcode Phone Number [facility] [place], [place] [address] INCORPORATED [address] [facility] [address] abdomen without IV contrast (01/19/2020 12:40 AM CDT) Specimen Narrative Performed At FINAL REPORT [email or web address] TECHNIQUE: CT of the abdomen WITHOUT int [...] MD Report Verified Date/Time:01/19/2020 08:09:04 Reading Location: [facility] [place] [facility] Reading Room - [place] [address] Procedure Note Interface, External Ris In [...] Verified Date/Time: 01/19/2020 0 8:09:04 Reading Location: [facility] [place] Reading Room - [place] [address] Performing Organization Address City/State/Zipcode Phone Number [email or web address] US renal complete (01/19/2020 12:20 AM CDT) Specimen Narrative Performed At FINAL REPORT [email or web address] Ultrasound of the Kidneys Clinical History:Re-examine L [...] 45 (H) 0 - 14 mg/dL [facility] Specimen Urine - Urine, Sterile Collection Narrative Performed At Class C Driver ID - EDWIN B [facility] Performing Organization Address [facility]/Zipcode Phone Number [address] [address] CENTER Creatinine, random urine (01/18/2020 8:49 PM CDT)Only the most recent of2 resultswithin the time period is included. Creatinine, Ur 181.3 mg/dL [facility] Specimen Urine - Urine, Sterile Collection Narrative Performed At Reference Range: No Normals [facility] Class C Driver ID - EDWIN B Performing Organization Address [facility] Centercoid Phone Number [address] [address] [place] Eosinophil smear (01/18/2020 8:49 PM CDT) Eosinophil Smear Rare EOS =less than 5% No EOS seen [facility] WBCs seen are EOS (A) [facility]TER Specimen Urine - Urine, Sterile Collection Performing Organization Address [facility] Centercoid Phone Number [address] [address] [place] Myocardial Perfusion Pet/CT (Rest & Stress) (01/18/2020 9:20 AM CDT) Specimen Narrative Performed At FINAL REPORT [email or web address] PROCEDURE: MYOCARDIAL PERFUSION PET IMAG ING (Rest/Stress) CPT CODE: 57660 INDICATION: Evaluation for liver transpl ant CARDIOVASCULAR [...] MD Report Verified Date/Time:01/18/2020 12:45:40 Reading Location: [address] Med Reading Room Procedure Note Interface, External Ris In - 01/18/2020 12:47 PM CDT FINAL REPORT PROCEDURE: MYOCARDIAL PERFUSION PET IMAG ING (Rest/Stress) CPT CODE: [id number] INDICATION: Evaluation for liver transpl ant CARDIOVASCULAR [...] Verified Date/Time: 01/18/2020 1 2:45:40 Reading Location: [address] P327[facility] Reading Room Performing Organization Address City/State/Zipcode Phone [...] 452 ms QTC Calculation(Bazett) 458 ms P [place] 59 degrees R [place] 32 degrees T [place] 56 degrees Normal sinus rhythm Low voltage [...] 452 ms QTC Calculation(Bazett) 458 ms P [place] 59 degrees R [place] 32 degrees T [place] 56 degrees Normal sinus rhythm Low voltage QRS Nonspecific ST abnormality 17 JAN 2020 11:05 Nonspecific T wave abnormality Nonspecif ic T wave abnormality, improved in QT has shortened Confirmed by MD DOUGHERTY YOCHAI ([id number]) on 01/18/2020 2:19:38 PM Performing Organization Address City/State/[facility] Centercode Phone Number GE MUSE T Spot TB [...] is no t available. Performing Organization Address City/State/[facility] Centercode Phone Number [facility] [address] [place] [address] [address] REPORT OF PROCEDURE - ENDOSCOPY URL (01/17/2020 9:11 AM CDT) Narrative Performed At This result has an attachment that is no t available. REPORT OF PROCEDURE - ENDOSCOPY URL (01/17/2020 8:39 AM CDT) Narrative Performed At This result has an attachment that is no t available. Tissue Exam (01/17/2020 8:15 AM CDT) Case Report Surgical Pathology Report Case: [id number] [facility] Authorizing Provider:Sylvie Larry MDCollected: 01/17/2020 08:15 AM MEDICAL CENTER Ordering Location: [address] Received:01/17/2020 01:50 PM Service Pathologist: Humaira Mendez MD Specimen:Duodenum, biopsy ADDENDUM THIS ADUODENUMIS ISSUED TO R EPORT THE FINDINGS IN THE DEEPER LEVELS OF THE BIOPSY AND GIVE THE FINAL DIAGNOSIS: [facility] DUODENUM, ENDOSCOPIC BIOPSY: - ECTATIC VESSELS IN THE LAMINA PROPRIA, SUGGE STIVE OF PORTAL DUODENOPATHY - NO FEATURES OF CELIAC DISEASE SEEN - NO GRANULOMAS, DYSPLASIA OR MALIGNANCY SEEN DIAGNOSIS DUODENUM, ENDOSCOPIC BIOPSY: [facility] - SUPERFICIAL FRAGMENTS OF SMALL BOWEL MUCOSA WITH GASTRIC FOVEOLAR METAPLASIA [facility] Signing Pathologist Direct Phone Line: CPT Code(s) [address] [facility] CLINICAL HISTORY Procedure: upper endoscopy, biopsy and colonosc opy [facility] Pre and postop diagnosis: anemia MEDICAL CENTER SPECIMEN SOURCE A. Duodenum; biopsy [facility] GROSS DESCRIPTION A. The specimen is received [facility] in formalin labeled with [facility] the patient's name, accession number and "[email or web address]" and consists of one garduno-pink mucosal-covered pieces of tissue measuring 0.3 x 0.2 x 0.1 cm. The specimen is submitted entirely following filtration in a cassette A1. HS/pl MICROSCOPIC DESCRIPTION PERFORMED [facility] Specimen Tissue Performing Organization Address City/[facility] Centercode Phone Number [place] [phone] [place] [address] CENTER Lactate dehydrogenase (LDH) (01/16/2020 12:24 PM CDT) LDH 250 (H) 125 - 220 U/L [facility] Specimen Blood Narrative Performed At Class C Driver ID - TUAN Mera [facility] Performing Organization Address [facility]/Zipcode Phone Number [place] [phone] [place] [address] CENTER Vitamin B12 and Folate (01/16/2020 11:25 AM CDT) Vitamin B12 1,107 (H) 213 - 816 pg/mL [facility] Folate 3.40 (L) >=7.00 ng/mL [facility] Specimen Blood Narrative Performed At Class C Driver ID - NTP [facility] Performing Organization Address City/[facility]/Zipcode Phone Number [address] [address] CENTER HIV-1 Antigen with HIV-1/2 Antibody (01/16/2020 11:25 AM CDT) HIV-1 Antigen with HIV 1&2 Nonreactive Nonreactive [facility] Specimen Blood Narrative Performed At Class C Driver ID - TUAN Mera [facility] Performing Organization Address City/[facility] Centercode Phone Number [address] [address] CENTER Haptoglobin (01/16/2020 11:25 AM CDT) Haptoglobin <8 (L) 14 - 258 mg/dL [facility] Specimen Blood Narrative Performed At Class C Driver ID - TUAN Mera [facility] Performing Organization Address City/[facility] Centercode Phone Number [address] [address] CENTER US abdominal with doppler (01/16/2020 6:30 AM CDT) Specimen Narrative Performed At FINAL REPORT [email or web address] ULTRASOUND ABDOMEN COMPLETE, ULTRASOUND DUPLEX DOPPLER HISTORY: [...] vein. Signed: Albaro Alvarado MD Report Verified Date/Time:01/16/2020 07:32:01 Reading Location: [address] Reading Room Procedure Note Interface, External [...] Verified Date/Time: 01/16/2020 0 7:32:01 Reading Location: [address] Reading Room Performing Organization Address City/[facility] Centercode Phone Number [email or web address] Drug screen, urine, transplant (01/15/2020 9:52 PM CDT) Specimen Urine Narrative Performed At This result has an attachment that is no t available. Performing Organization Address [facility] Centercode Phone Number [place] [phone] [place] [phone] Blood typing, automated - - at seperate draw time from initial type and screen (01/15/2020 6:16 PMCDT) ABO/RH AUTOMATED (BEAKER) A POSITIVE [facility] Specimen Blood Performing Organization Address [facility]/Zipcode Phone Number [facility] [address] [place] [address] CT chest without IV contrast (01/15/2020 5:54 PM CDT) Specimen Narrative Performed At FINAL REPORT [email or web address] CT of the chest, without contrast Clinical [...] MD Report Verified Date/Time:01/15/2020 17:57:54 Reading Location: [address] Reading Room Procedure Note Interface, External [...] Verified Date/Time: 01/15/2020 1 7:57:54 Reading Location: [facility] C0X [facility] sult Reading Room Performing Organization Address City/[facility]/Zipcode Phone Number GE RIS XR chest 2 [...] MD Report Verified Date/Time:01/15/2020 17:16:49 Reading Location: [facility] C013T [facility] Reading Room Procedure Note Interface, External Ris [...] Verified Date/Time: 01/15/2020 1 7:16:49 Reading Location: [facility] C013T [facility] Reading Room Performing Organization Address City/[facility]/Zipcode Phone Number GE RIS XR mandible min [...] MD Report Verified Date/Time:01/15/2020 17:22:12 Reading Location: [address] Reading Room Procedure Note Interface, External [...] Verified Date/Time: 01/15/2020 1 7:22:12 Reading Location: [facility] [address] [place] [address] Reading Room Performing Organization Address City/[facility] Centercode Phone Number [facility] Mitochondria M2 Antibody (IgG) (01/15/2020 4:17 PM CDT) Mitochondria M2 Ab <20.0 See Note: U [facility] Comment: Reference Range: NEGATIVE:< OR = 20.0 EQUIVOCAL: 20.1-24.9 POSITIVE:> OR = 25.0 Specimen Blood Narrative Performed At Performing Lab [facility] [address] [address] [place] [address] I Shashank ADRIAN, PhD, AMINA Performing Organization Address City/[facility] Centercode Phone Number [facility] [place] [address] INCORPORATED [address] [facility] Iron, TIBC, % sat. (without ferritin) (01/15/2020 4:17 PM CDT) Iron 144.0 40.0 - 160.0 ug/dL [facility] TIBC 129 (L) 250 - 450 ug/dL [facility] Iron % Saturation 112 (H) 20 - 55 % [facility] Specimen Blood Narrative Performed At Class C Driver ID - DB [facility] Performing Organization Address City/[facility] Centercoid Phone Number [address] [address] CENTER Hepatitis C antibody (01/15/2020 4:17 PM CDT) Hepatitis C Ab Nonreactive Nonreactive [facility] Specimen Blood Narrative Performed At Class C Driver ID - DB [facility] Performing Organization Address City/[facility] Centercode Phone Number [address] [address] CENTER Cytomegalovirus antibody, IgM (01/15/2020 4:17 PM CDT) CMV IGM Negative Negative, Equivocal [facility] Specimen Blood Narrative Performed At CMV IgM Result Interpretation: [facility] </= 0.8 Al Negative 0.9-1.0 Al [employer] >/= 1.1 Al Positive Performing Organization Address [facility] Center/[facility] Phone Number [address] [address] CENTER Actin (Smooth Muscle) Antibody, [...] Specimen Blood Narrative Performed At Performing Lab [facility] [address] [place] [address] Mark Encarnacion MD, PhD, AMINA Performing Organization Address City/[facility] Phone Number [employer] [place], [place] [address] [employer]ATED [address] [facility] [id number] (01/15/2020 4:17 PM CDT) A-1 Antitrypsin 121.20 90.00 - 200.00 mg/dL [facility] Specimen Blood Narrative Performed At Class C Driver ID - DB [facility] Performing Organization Address [facility]oid Phone Number [address] [address] CENTER Hepatitis A antibody, IgM (01/15/2020 4:17 PM CDT) Hep A IgM Nonreactive Nonreactive [facility] Specimen Blood Narrative Performed At Class C Driver ID - DB [facility] Performing Organization Address [facility] Phone Number [address] [address] CENTER Carbohydrate antigen 19-9 (CA 19-9) (01/15/2020 4:17 PM CDT) CA 19-9 32 <34 U/mL [facility] [employer] Comment: This test was performed using the Siemens Chemil uminescent method. Values obtained from different assay methods can not be used interchangeably. CA19-9 levels, regardless of value, should not b e interpreted as absolute evidence of the presence or absence of disease. Specimen Blood Narrative Performed At Performing Lab [facility] [employer] [address] [address] [place] [address] Mark Encarnacion MD, PhD, AMINA Performing Organization Address City/[facility] Phone Number [employer] [place] [address] [employer]ATED [address] [facility] Ceruloplasmin (01/15/2020 4:17 PM CDT) Ceruloplasmin 21 18 - 53 mg/dL [facility] Specimen Blood Narrative Performed At Performing Lab [facility] *BEAT[facility]Z [facility], [address] [place] [phone] Jorje Jauregui MD, PhD Performing Organization Address [facility] Phone Number [place] [address] [place] [address] [facility] Zinc (01/15/2020 4:17 PM CDT) Zinc 39 (L) 60 - 130 mcg/dL [facility] Comment: INCORPORATED This test was developed and its analytical perfo rmance characteristics have been determined by [facility]. It has not been cleared or approved by the FDA. This assay has been validated pursuant to [facility] CLIA regulations and is used for clinical purposes. Specimen Blood Narrative Performed At Performing Lab [facility] *Zen[facility], [address] [place] [phone] Jorje Jauregui MD, PhD Performing Organization Address [facility] Phone Number [place], [place] [address] [place]ATED [address] [facility] Alpha fetoprotein (AFP), tumor marker (01/15/2020 4:17 PM CDT)Only the most recent of2 resultswithin the time period is included. Alpha-Fetoprotein <2.0 <10.0 ng/mL [facility] Specimen Blood Narrative Performed At Class C Driver ID - DB [facility] Performing Organization Address City/[facility]/Zipcode Phone Number [address] [address] CENTER Hepatitis B core antibody, IgM (01/15/2020 4:17 PM CDT) Hep B C IgM Nonreactive Nonreactive [facility] Specimen Blood Narrative Performed At Class C Driver ID - DB [facility] Performing Organization Address City/State/Zipcode Phone Number [facility] [address] [place] [address] CENTER EBV-VCA antibody, IgM (01/15/2020 4:17 PM CDT) GABRIEL CHING VIRAL CAPSID Negative Negative, Equivocal [facility] Specimen Blood Narrative Performed At Gabriel Ching Viral Capsid Antigen IgM Result [facility] Interpretation: </= 0.8 Al Negative 0.9-1.0 Al Equivocal >/= 1.1 Al Positive Performing Organization Address [facility] Phone Number [address] [address] [place] EBV-VCA antibody, IgG (01/15/2020 4:17 PM CDT) GABRIEL CHING VIRAL CAPSID Positive (A) Negative, Equivocal [facility] Specimen Blood Narrative Performed At Gabriel Ching Viral Capsid Antigen IgG Result [facility] Interpretation: </= 0.8 Al Negative 0.9-1.0 Al Equivocal >/= 1.1 Al Positive Performing Organization Address [facility] Phone Number [address] [address] [place] Hepatitis B core antibody, total (01/15/2020 4:17 PM CDT) Hep B Core Total Ab Nonreactive Nonreactive [facility] Specimen Blood Narrative Performed At Class C Driver ID - [place] [facility] Performing Organization Address City/[facility]/Zipcode Phone Number [address] [address] CENTER Vitamin D, 25-Hydroxy (01/15/2020 4:17 PM CDT) Vitamin D 25-Hydroxy 6.2 (L) 6.6 - 49.9 ng/mL [facility] Specimen Blood Narrative Performed At Effective 05/07/2017: Reference Range Ch von [facility] New: 6.6-49.9 ng/mL Previous: 13.0-47.8 ng/mL Recommended Vitamin D Target Range: 30.0-40.0 ng/mL Class C Driver ID - DB Performing Organization Address City/[facility]/Zipcode Phone Number [address] [address] CENTER RPR (01/15/2020 4:17 PM CDT) RPR Nonreactive Nonreactive [facility] Specimen Blood Performing Organization Address [facility] Phone Number [address] [address] CENTER Hepatitis B surface antibody (01/15/2020 4:17 PM CDT) Hep B S Ab 25.0 (H) <8.0 mIU/mL [facility] Specimen Blood Narrative Performed At Class C Driver ID - DB [facility] Performing Organization Address [facility] Phone Number [address] [address] CENTER Hepatitis B surface antigen (01/15/2020 4:17 PM CDT) HBsAg Screen Nonreactive Nonreactive [facility] Specimen Blood Narrative Performed At Specimen is considered negative for HBsAg. [facility] Performing Organization Address [facility] Phone Number [address] [address] [place] Cytomegalovirus antibody, IgG (01/15/2020 4:17 PM CDT) CYTOMEGALOVIRUS, IGG Positive (A) Negative, Equivocal [facility] Specimen Blood Narrative Performed At CMV IgG Result Interpretation: [facility] </= 0.8 Al Negative 0.9-1.0 Al Equivocal >/=1.1 AlPositive Performing Organization Address [facility] Phone Number [address] [address] [place] aPTT (01/15/2020 4:17 PM CDT) PTT 36.8 (H) 22.5 - 36.0 seconds [facility] Specimen Blood Performing Organization Address City/[facility]erc[facility] Phone Number [address] [address] [place] Fibrinogen (01/15/2020 4:17 PM CDT) Fibrinogen 114 (L) 225 - 434 mg/dl [facility] Specimen Blood Performing Organization Address [facility] Phone Number [address] [address] [place] Anti-Nuclear Antibody (REILLY) (01/15/2020 4:17 PM CDT) REILLY Negative Negative [facility] Specimen Blood Narrative Performed At Test performed by IFA method. [facility] Test performed by IFA method. Performing Organization Address [facility] Phone Number [address] [address] [place] T3 (01/15/2020 4:17 PM CDT) T3, Total 51 48 - 159 ng/dL [facility] Specimen Blood Narrative Performed At This result has an attachment that is no t available. Performing Organization Address City/[facility] Phone Number [facility] [address] [place], [place] Transferrin (01/15/2020 4:17 PM CDT) Transferrin 102 (L) 174 - 382 mg/dL [facility] Specimen Blood Narrative Performed At Class C Driver ID - DB [facility] Specimen moderately icteric Performing Organization Address [facility] Phone Number [address] [address] [place] TSH (01/15/2020 4:17 PM CDT) TSH 5.549 (H) 0.350 - 4.940 uIU/mL [facility] Specimen Blood Narrative Performed At Class C Driver ID - DB [facility] Performing Organization Address City/State/Zipcode Phone Number [address] [address] CENTER T4 (01/15/2020 4:17 PM CDT) T4, Total 4.3 (L) 4.9 - 11.7 ug/dL [facility] Specimen Blood Narrative Performed At Class C Driver ID - NTP [facility] Performing Organization Address City/State/Zipcode Phone Number [address] [address] CENTER Hemoglobin A1c (01/15/2020 4:17 PM CDT) Hemoglobin A1C <3.8 (L) 4.3 - 6.1 % [facility] Specimen Blood Performing Organization Address City/[facility]/Zipcode Phone Number [address] [address] CENTER Ferritin (01/15/2020 4:17 PM CDT) Ferritin 489.86 (H) 5.00 - 275.00 ng/mL [facility] Specimen Blood Narrative Performed At Class C Driver ID - NTP [facility] Performing Organization Address City/State/Zipcode Phone Number [address] [address] CENTER Carcinoembryonic Antigen (CEA) (01/15/2020 4:17 PM CDT) CEA, SERUM 7.9 (H) 0.0 - 5.0 ng/mL [facility] Specimen Blood Narrative Performed At Class C Driver ID - DB [facility] Performing Organization Address City/State/Zipcode Phone Number [facility] [address] [place] [address] CENTER Ethanol (01/15/2020 4:17 PM CDT) Ethanol Lvl <10 <=10 mg/dL [facility] Specimen Blood Narrative Performed At Class C Driver ID - DB [facility] Performing Organization Address City/State/Zipcode Phone Number [address] [address] [place] 2D Echo W/Doppler(CW/PW/Color) (01/15/2020 2:45 PM CDT) Ejection Fraction [facility] Specimen Narrative Performed At Transthoracic Echocardiography Report (T TE) [facility] ECHO HEARTLAB [facility] Demographics Patient Name CICI CALDERON Date of Study 01/15/2020 ALYSE [id number] GenderFem shalom Visit Number [id number] RaceUnkn own [id number] m Number [id number] Number Date of Birth1955 Referring Physician Ren Hernandez MD Age64 year(s) Cut Tobacco Bulker Lisa Bautista [facility] InterpretingJoseolvin Arreguin MD Physician Procedure Type of [...] Study 01/15/2020 ALYSE Gender Female Visit Number [id number] Race Unknown [place] [id number] Number Date [facility] 1955 [facility] MD Age 64 year(s) Sonogra pher Lisa Melhem [facility] Interpr eting Jai Arreguin MD Physici an [...] l/min/m^2 Performing Organization Address City/State/Zipcode Phone Number [facility] Carotid doppler bilateral (01/15/2020 2:41 PM CDT) Ejection Fraction [facility] ECHO HEAR TLAB [facility] Specimen Impressions Performed At Right Impression [facility] 1. The internal, common and external carotid [...] Performed At LAB - Carotid Duplex Study [facility] ECHO HEARTLAB [facility] Demographics Patient NameShameka CALDERON of Study 01/15/2020 ALYSE 64 Visit [id number] Female of 1955 [facility] Room Number 1515 Physician Cut Tobacco Bulker Herbert maurice, T Physician Procedure Type of [...] Duplex Study Demographics Patient Name CICI CALDERON Ramirez e of Study 01/15/2020 ALYSE Age 64 Visit Number [id number] Gen margarita Female Accession Number [id number] Ramirez e of 1955 Referring [facility] Shady Todd Number [id number] Physician Cut Tobacco Bulker Herbert Jacobs [facility] Chelsea Resendez, Anna foss MD Procedure Type [...] Measurements:ICAPSV/CCAPS V 0.96.ICAEDV/CCAEDV 1.52. Performing Organization Address City/[facility] Phone Number [facility] ECHO HEARTLAB [facility] Hepatitis panel, acute (01/15/2020 8:32 AM CDT) Hep A IgM Nonreactive Nonreactive [facility] Hep B C IgM Nonreactive Nonreactive [facility] Hepatitis C Ab Nonreactive Nonreactive [facility] HBsAg Screen Nonreactive Nonreactive [facility] Specimen Blood Narrative Performed At Class C Driver ID - NTP [facility] Performing Organization Address [facility] Phone Number [address] [address] CENTER Ammonia (01/15/2020 8:32 AM CDT) Ammonia 19 18 - 72 mol/L [facility] Specimen Blood Narrative Performed At Class C Driver ID - NTP [facility] Performing Organization Address [facility] Phone Number [address] [address] CENTER Uric acid (01/15/2020 3:56 AM CDT) Uric Acid 15.7 (H) 2.6 - 7.2 mg/dL [facility] Specimen Blood Narrative Performed At Class C Driver ID - NTP [facility] Specimen moderately icteric Performing Organization Address City/[facility] Phone Number [facility] [address] [place] [address] [place] Gamma Glutamyl Transferase (GGT) (01/15/2020 3:56 AM CDT) GGT 15 9 - 64 U/L [facility] Specimen Blood Narrative Performed At Class C Driver ID - NTP [facility] Specimen moderately icteric Performing Organization Address [facility] Phone Number [address] [address] [place] Lipid panel (01/15/2020 3:56 AM CDT) Triglycerides 86 mg/dL [facility] Cholesterol 101 mg/dL [facility] HDL 12 mg/dL [facility] LDL Calculated 72 mg/dL [facility] Specimen Blood Narrative Performed At Triglyceride Reference Range: [facility] Low Risk <150 [id number] High Risk 200-499 Very High Risk>=500 Cholesterol Reference Range: Low Risk <200 Xudbstmscy596-191 High Risk>240 HDL Cholesterol Reference Range: Low Risk >=60 High Risk <40 LDL Cholesterol Reference Range: Optimal<100 Near Hvkffli580-661 Heozaowdbc840-066 Gkhd679-270 Very High >=190 Class C Driver ID - NTP Specimen moderately icteric Performing Organization Address City/[facility] Phone Number [address] [address] [place] SARS-CoV2/RT-PCR (Asymptomatic ONLY) (01/14/2020 7:28 PM CDT) SARS-COV2/RT-PCR Not Detected Not Detected, Negative [facility] SARS-COV-2 PERFORMING LAB [facility] Specimen Other Narrative Performed At Negative results do not preclude SARS-CoV-2 [facility] infection and should not be used as [...] the Act. Fact Sheet for Healthcare Providers: https://www.Lecere/Documents/Xpert%20Xpre ss%20SARS%20CoV-2/Fact%20Sheets/302-3802%20SAR S-COV-2%20HEALTHCARE%20PROVIDERS%20FACT%20SHEE T.pdf Fact Sheet for Healthcare Patients: https://www.Lecere/Documents/Xpert%20Xpre ss%20SARS%20CoV-2/Fact%20Sheets/302-3801%20SAR S-COV-2%20PATIENT%20FACT%20SHEET.pdf Performing Laboratory: [address] [place] [address] Performing Organization Address City/State/Zipcode Phone Number [address] [address] CENTER after 02/17/2019 Insurance Payer Benefit Plan / Subscriber ID Type Phone Address Group [employer] - MEDICARE AETNA MEDICARE HMO xxxxxxxx [address] [place] [address] CDC REVIEW CDC REVIEW xxxxx[place] [address] [place] [address] Advance Directives For more information, please contact:[place] [id number] [place], [place] [phone] Code Status Date Activated Date Inactivated Comments Full Code 01/14/2020 8:09 PM 01/26/2020 8:41 PM This code status was determined by: Patient
--- OUTSIDE RECORDS SUMMARY | 2020-02-18 09:20 | XMS REPORT ---
[...] Status Dosage System Date Date Calcitriol ND [id number] 0.5 MCG Orally Active 1 capsule Once a day Albuterol [facility] [id number] 108 (90 Base) November 03, Active 1 puff as Sulfate HFA MCG/ACT 2019 needed Inhalation every 6 hrs Lactulose ND 01614152508 20 GM/30ML Active 15 ml Orally Once a day Cimetidine ND 82593418466 200 MG Orally Active 1 t ablet Once a day as needed Results No Known Results Summary Purpose eClinicalWorks Submission
--- OUTSIDE RECORDS SUMMARY | 2020-02-18 09:20 | XMS REPORT | Continuity of Care Document ---
:1955 Author Organization [facility] t Address [address] [place] [address] Dr. Conk[address] [place] [address] Care Team Providers Name Role Phone Nahun [...] Attending Clinician Unavailable Nallely ADRIAN Attending Clinician Zeinab Gooden Attending Clinician Vinicius ETIENNE Bull Attending [...] CAREAETNA MEDICARE kes - O POS Medical [phone] [facility] [id number] [address] [facility] REVIEWCDC xxxxxxxx [facility] REVIEWxxxxxxxxPO [facility] [id number] Center Problems Condition Condition Condition Status Onset Resolution Last Treating Co mments Source Name Details Category Date Date Treatment Clinician Date Acute Acute Disease Active [facility] liver liver 6-19 [facility] - failure failure 00:00: Medical 00 Mccoy Elevated Elevated Disease Active [facility] [...] [facility] t & Plan: Medical 00 EGD in Center March 2016 was negative for varices. Obesity Obesity Disease Active 2015-[address] (BMI (BMI 09-01 [facility] - 35.0-39.9 35.0-39.9 00:00: t & [...] 2015-[address] on [facility] 09-01 [facility] - [facility]: t & Plan: Medical 00 Recommend Center miralax Screening Screening Disease Active 2015-[address] [facility] [address] for for 09-01 [facility] - malignant malignant 00:00: t & [...] Active hives [facility] line HCl Reaction [facility] Levaquin Adverse Active vomiting/jocy C HI [facility] Reaction rrhea [facility] Erythrom Adverse Active vomiting/jocy C HI [facility] ycin Reaction rrhea [facility] Family History Family Member Diagnosis Comments Start Date Stop Date Source Natural brother Diabetes [facility] Natural brother Hypertension [facility] Natural brother Arthritis [facility] Natural brother COPD [facility] Natural father Diabetes [facility] Natural father Heart disease [facility] Natural mother Diabetes [facility] Natural mother Heart disease [facility] Natural sister Cancer [facility] Social History Social Habit Start Date Stop Date Quantity Comments Source Sex Assigned At [facility] Alcohol Comment 2016-07-01 2016-07-01 social last drink I [facility] - 00:00:00 00:00:00 06/15/16 [facility] Smoking Status Start Date Stop Date Source Former smoker 2020-02-15 00:00:00 2020-02-15 00:00:00 [facility] Medications Ordered Filled Start Stop Current Ordering [...] 2 (two) times daily. ergocalcife 2020- Yes [id number] Take [address] rol [...] mouth magnesium) daily. tablet lactulose Yes 20g [id number] Take [address] (CHRONULAC) 01-25 [id number] mLs (20 g [facility] - 20 gram/30 00:00: 3D total) by Ca dical mL solution 00 mouth 3 Cente r (three) times daily. midodrine 2020- Yes 2.5mg [id number] Take [address] (PROAMATINE 01-25 [id number] tablet [facility] - ) 2.5 MG 00:00: [...] [facility] Sulfate HFA Sulfate HFA 4-09 Tucker needed [facility] - 00:00: Memoria 00 l [facility] ent [facility] Cimetidine Cimetidine Yes Mitzy [address] Tucker as needed [facility] Calcitriol Calcitriol Yes Mitzy [address] [facility] Lactulose Lactulose Yes Mitzy [address] [facility] Vital Signs Vital Name Observation Time Observation Value Comments Source Systolic blood 2020-02-15 10:30:00 131 mm[Hg] [facility] Diastolic blood 2020-02-15 10:30:00 78 mm[Hg] [facility] Heart rate 2020-02-15 10:30:00 98 /min [facility] Body temperature 2020-02-15 10:30:00 36.22 Shaneka [facility] Respiratory rate 2020-02-15 10:30:00 18 /min [facility] Body height 2020-02-15 10:30:00 162.6 cm [facility] Body weight Measured 2020-02-15 10:30:00 90.901 kg [facility] BMI 2020-02-15 10:30:00 34.40 kg/m2 [facility] Oxygen saturation in 2020-02-15 10:30:00 95 /min [facility] Arterial blood by Medical Ce ntsoren Pulse oximetry Procedures Procedure Date / Time Performing Clinician Source Performed MAGNESIUM 2020-02-15 12:29:00 Kristofer Cross [facility] BILIRUBIN, DIRECT 2020-02-15 12:29:00 AmericaKristofer theodore [facility] COMPREHENSIVE [facility] 2020-02-15 12:29:00 AmericaKristofer theodore [facility] PROTHROMBIN TIME/INR 2020-02-15 12:29:00 AmericaKristofer theodore [facility] CBC W/PLT COUNT & AUTO 2020-02-15 12:29:00 AmericaKristofer theodore [facility] PROTHROMBIN TIME/INR 2020-02-08 10:23:00 AmericaKristofer theodore [facility] 2020-02-08 10:23:00 AmericaKristofer theodore [facility] CBC W/PLT COUNT & AUTO 2020-02-08 10:23:00 AmericaKristofer theodore [facility] BILIRUBIN, DIRECT 2020-02-08 10:23:00 AmericaKristofer theodore [facility] PLATELET ESTIMATION 2020-02-08 10:23:00 AmericaKristofer theodore [facility] PROTHROMBIN TIME/INR 2020-02-01 09:25:00 Kristofer Cross [facility] COMPREHENSIVE [facility] 2020-02-01 09:25:00 AmericaKristofer theodore [facility] CBC W/PLT COUNT & AUTO 2020-02-01 09:25:00 AmericaKristofer theodore [facility] BILIRUBIN, DIRECT 2020-02-01 09:25:00 AmericaKristofer theodore [facility] RHYTHM STRIP - SCAN 2020-01-27 10:00:12 [facility] CARDIAC CATH REPORT - SCAN 2020-01-27 10:00:07 [facility] LEUKO-REDUCED 2020-01-26 22:41:07 Kaylin Michelle [facility] PLATELETS [facility] METANEPHRINES 2020-01-26 14:51:00 SantiBlanca montalvo [facility] HEPATIC FUNCTION PANEL 2020-01-26 03:50:00 [facility] PROTHROMBIN TIME/INR 2020-01-26 03:50:00 [facility] CALCIUM, IONIZED 2020-01-26 03:50:00 [facility] COMPREHENSIVE METABOLIC 2020-01-26 03:50:00 [facility] PHOSPHORUS 2020-01-26 03:50:00 [facility] MAGNESIUM 2020-01-26 03:50:00 Juana [facility] CBC W/PLT COUNT & AUTO 2020-01-26 03:50:00 Florian Kinney [facility] HEPATIC FUNCTION PANEL 2020-01-25 03:47:00 [facility] PROTHROMBIN TIME/INR 2020-01-25 03:47:00 [facility] BASIC METABOLIC PANEL (7) 2020-01-25 03:47:00 [facility] MAGNESIUM 2020-01-25 03:47:00 Juana [facility] CBC W/PLT COUNT & AUTO 2020-01-25 03:47:00 Florian Kinney [facility] (CELLAVISION MANUAL DIFF) 2020-01-25 03:47:00 Florian Kinney [facility] TRANSFUSION SERVICE REPORT 2020-01-24 18:00:13 [facility] PULMONARY FUNCTION - SCAN 2020-01-24 13:10:09 [facility] SPIROMETRY 2020-01-24 10:41:00 [facility] ([facility]LE BREATH 2020-01-24 10:41:00 [facility] - DIFFUSION) [facility] LUNG VOLUMES 2020-01-24 10:41:00 [facility] 6 MINUTE WALK(FOR LUNG 2020-01-24 10:20:00 [facility] - TRANSPLANT ONLY) [facility] HEPATIC FUNCTION PANEL 2020-01-24 03:57:00 [facility] PROTHROMBIN TIME/INR 2020-01-24 03:57:00 [facility] CALCIUM, IONIZED 2020-01-24 03:57:00 Kermit Nicole [facility] PHOSPHORUS 2020-01-24 03:57:00 Kermit Nicole [facility] BASIC METABOLIC PANEL (7) 2020-01-24 03:57:[address] [facility] MAGNESIUM 2020-01-24 03:57:00 Leena Arias [facility] CBC W/PLT COUNT & AUTO 2020-01-24 03:57:00 Juana [facility] PREPARE LEUKO-REDUCED RBC 2020-01-23 23:54:00 Vitor Orozco [facility] TRANSFUSION SERVICE REPORT 2020-01-23 18:00:37 ProviderBozena [facility] - - SCAN Scanning [facility] HEPATIC FUNCTION PANEL 2020-01-23 04:32:[address] [place] [facility] PROTHROMBIN TIME/INR 2020-01-23 04:32:00 [place] [facility] B-TYPE NATRIURETIC FACTOR 2020-01-23 04:32:00 Kermit Nicole [facility] (BNP) [facility] CALCIUM, IONIZED 2020-01-23 04:32:00 Kermit Nicole [facility] PHOSPHORUS 2020-01-23 04:32:00 Kermit Nicole [facility] BASIC METABOLIC PANEL (7) 2020-01-23 04:32:00 Arias, Leena [facility] MAGNESIUM 2020-01-23 04:32:00 Arias [facility] CBC W/PLT COUNT & AUTO 2020-01-23 04:32:00 Ju[place] [facility] (CELLAVISION MANUAL DIFF) 2020-01-23 04:32:00 [facility] PREPARE LEUKO-REDUCED 2020-01-22 23:54:00 Miguel AngelKaylin [facility] PLATELETS [facility] TRANSFUSION SERVICE REPORT 2020-01-22 18:01:00 Provider, [facility] - SCAN [facility] TRANSFUSE LEUKO-REDUCED RED 2020-01-22 14:30:53 Vitor Orozco [facility] BLOOD CELLS [facility] CORTISOL 2020-01-22 08:23:00 Christine Carl[facility] CALCIUM, IONIZED 2020-01-22 04:35:00 Russ Ha [facility] HEPATIC FUNCTION PANEL 2020-01-22 04:35:[address] [facility] BASIC METABOLIC PANEL (7) 2020-01-22 04:35:00 Arias [facility] MAGNESIUM 2020-01-22 04:35:00 Juana [facility] CBC W/PLT COUNT & AUTO 2020-01-22 04:35:00 Juana [facility] (CELLAVISION MANUAL DIFF) 2020-01-22 04:35:00 Juana [facility] PROTHROMBIN TIME/INR 2020-01-22 04:34:00 Galdino [facility] DIRECT [facility]HG (KRISTI)/DIRECT 2020-01-22 04:34:00 Gregory, [facility] ABORH, MANUAL 2020-01-22 04:34:00 Gregory, [facility] TRANSFUSION SERVICE REPORT 2020-01-21 18:00:48 Provider, Default [facility] - - SCAN [facility] BODY FLUID CULTURE + GRAM 2020-01-21 16:54:00 Miguel Angel, Kaylin CH I [facility] BODY FLUID CELL COUNT WITH 2020-01-21 16:54:00 Amn Miguel Angela C [facility] US PARACENTESIS 2020-01-21 16:40:00 [place] [facility] MISCELLANEOUS LAB ORDER 2020-01-21 09:31:00 Orestes [facility] HEPATIC FUNCTION PANEL 2020-01-21 09:31:[address] [place] [facility] PROTHROMBIN TIME/INR 2020-01-21 09:31:00 [place] [facility] COMPREHENSIVE METABOLIC 2020-01-21 09:31:00 [facility] 2020-01-21 09:31:00 [facility] MAGNESIUM 2020-01-21 09:31:00 Leena Arias [facility] CORTISOL 2020-01-21 09:31:00 Issrikanth [facility] RETICULOCYTE COUNT 2020-01-21 09:31:00 Oumou Jenkins [facility] PERIPHERAL BLOOD SMEAR - 2020-01-21 09:31:00 Kaylin Michelle [facility] CBC W/PLT COUNT & AUTO 2020-01-21 09:31:00 Russ Ha [facility] XR CHEST 1 VIEW 2020-01-21 09:10:00 Russ Ha [facility]/BEDSIDE [facility] METANEPHRINES, 24 HOUR 2020-01-20 22:51:[address] [place] [address] [facility] URINE [facility] CATECHOLAMINES, 2020-01-20 22:51:00 [place] [facility] - FRACTIONATED, 24HR URINE Medical Center TYPE AND SCREEN, AUTOMATED 2020-01-20 20:39:00 Amn Miguel Angela Samaria [facility] XR CHEST 1 VIEW 2020-01-20 20:28:00 [place] [facility] PORTABLE/BEDSIDE [facility] TRANSFUSION SERVICE REPORT 2020-01-20 18:01:30 ProviderBozena [facility] - - SCAN Scanning [facility] MR ABDOMEN WITHOUT IV 2020-01-20 17:54:[address] [facility] HEPATIC FUNCTION PANEL 2020-01-20 04:10:00 [facility] PROTHROMBIN TIME/INR 2020-01-20 04:10:00 [facility] CALCIUM, IONIZED 2020-01-20 04:10:00 [facility] COMPREHENSIVE METABOLIC 2020-01-20 04:10:00 [facility] PHOSPHORUS 2020-01-20 04:10:00 [facility] MAGNESIUM 2020-01-20 04:10:00 Leena Arias [facility] CBC W/PLT COUNT & AUTO 2020-01-20 04:10:00 Leland [facility] (CELLAVISION MANUAL DIFF) 2020-01-20 04:10:00 [facility] PREPARE LEUKO-REDUCED RBC 2020-01-19 23:54:00 Miguel Angel, Kaylin [facility] URINALYSIS W/ MICROSCOPIC 2020-01-19 23:19:00 [facility] SODIUM, RANDOM URINE 2020-01-19 23:19:00 [facility] BLOOD CULTURE 2020-01-19 21:45:00 [facility] BLOOD CULTURE 2020-01-19 21:44:00 [facility] [id number] 2020-01-19 21:43:00 Kristofer Cross [facility] TRANSFUSION SERVICE REPORT 2020-01-19 18:01:08 [facility] BLOOD GAS, ARTERIAL 2020-01-19 15:44:00 Kristofer Cross [facility] CRYPTOCOCCAL ANTIGEN 2020-01-19 15:04:00 Kristofer Cross [facility] MUMPS ANTIBODY, IGG 2020-01-19 15:04:00 Kristofer Cross [facility] RUBELLA ANTIBODY, IGG 2020-01-19 15:04:00 Kristofer Cross [facility] RUBEOLA ANTIBODY IGG 2020-01-19 15:04:00 Kristofer Cross [facility] VARICELLA ZOSTER ANTIBODY, 2020-01-19 15:04:00 Kristofer Cross [facility] R & L CATH / CORONARY 2020-01-19 13:47:[address] [facility] ANGIOS (+/- LV) [facility] PROTHROMBIN TIME/INR 2020-01-19 11:00:00 [place] [facility] US BREAST BILATERAL 2020-01-19 09:10:00 Kristofer Cross [facility] HEPATIC FUNCTION PANEL 2020-01-19 04:11:00 [facility] CALCIUM, IONIZED 2020-01-19 04:11:00 [facility] COMPREHENSIVE METABOLIC 2020-01-19 04:11:00 [facility] PHOSPHORUS 2020-01-19 04:11:00 [facility] B-TYPE NATRIURETIC FACTOR 2020-01-19 04:11:00 [facility] ALDOSTERONE 2020-01-19 04:11:00 [facility] RENIN, PLASMA 2020-01-19 04:11:00 [facility] METANEPHRINES 2020-01-19 04:11:00 [facility] MAGNESIUM 2020-01-19 04:11:00 Leena Arias [facility] CBC W/PLT COUNT & AUTO 2020-01-19 04:11:[address] ABDOMEN WITHOUT IV 2020-01-19 00:40:00 [place] [facility] CONTRAST [facility] US RENAL COMPLETE 2020-01-19 00:20:00 Galdino, Roscoe [facility] PREPARE LEUKO-REDUCED 2020-01-18 23:54:00 Juana [facility] PLATELETS [facility] URINALYSIS W/ MICROSCOPIC 2020-01-18 20:49:00 [facility] SODIUM, RANDOM URINE 2020-01-18 20:49:00 Leland [facility] PROTEIN, RANDOM URINE 2020-01-18 20:49:00 [facility] CREATININE, RANDOM URINE 2020-01-18 20:49:00 Leladn [facility] EOSINOPHIL SMEAR, URINE 2020-01-18 20:49:00 [facility] TRANSFUSION SERVICE REPORT 2020-01-18 18:31:51 Provider [facility] - - SCAN Scanning [facility] TRANSFUSE LEUKO-REDUCED RED 2020-01-18 13:21:26 Miguel Angel [facility] BLOOD CELLS [facility] NM MYOCARDIAL PERFUSION 2020-01-18 09:20:00 Brian Browning [facility] - PET/CT (REST & STRESS) Medical C enter TREADMILL 2020-01-18 08:57:35 Unknown, Hl7 [facility](NON-NUCLEAR Medical Ce nter TREADMILL) ECG 12-LEAD 2020-01-18 08:46:42 Unknown, Hl7 [facility] BASIC METABOLIC PANEL (7) 2020-01-18 06:10:00 [facility] MAGNESIUM 2020-01-18 06:10:00 Juana [facility] T SPOT TB 2020-01-18 06:10:00 Miguel Angel [facility] HEPATIC FUNCTION PANEL 2020-01-18 06:10:00 [place] Ahmadi [facility] CBC W/PLT COUNT & AUTO 2020-01-18 06:10:00 Juana [facility] DIFFERENTIAL [facility] (CELLAVISION MANUAL DIFF) 2020-01-18 06:10:00 Juana [facility] ECG 12-LEAD 2020-01-17 11:05:03 Brian Browning [facility] REPORT OF PROCEDURE - 2020-01-17 09:11:05 Doris [facility] REPORT OF PROCEDURE - 2020-01-17 08:39:23 Doris [facility] TISSUE EXAM 2020-01-17 08:15:00 Doris [facility] TRANSFUSE LEUKO-REDUCED 2020-01-17 08:04:58 Ju[facility] UPPER ENDOSCOPY,BIOPSY 2020-01-17 08:00:00 Doris [facility] COLONOSCOPY 2020-01-17 08:00:00 George, [facility] PROTHROMBIN TIME/INR 2020-01-17 03:56:00 Mary Roper [facility] BASIC METABOLIC PANEL (7) 2020-01-17 03:56:00 Juana [facility] MAGNESIUM 2020-01-17 03:56:00 Juana [facility] CBC W/PLT COUNT & AUTO 2020-01-17 03:56:00 Juana [facility] (CELLAVISION MANUAL DIFF) 2020-01-17 03:56:00 Juana [facility] TRANSFUSION SERVICE REPORT 2020-01-16 18:00:27 Moses, Bozena [facility] - - [facility] BLOOD CULTURE 2020-01-16 12:25:00 Shady Gonzáles [facility] LACTATE DEHYDROGENASE (LDH) 2020-01-16 12:24:00 Juan Minor [facility] RETICULOCYTE COUNT 2020-01-16 12:23:00 Juan Minor [facility] BLOOD CULTURE 2020-01-16 11:25:00 [facility] ANTIGEN WITH HIV-1/2 2020-01-16 11:25:00 Shady Gonzáles [facility] VITAMIN B12 AND FOLATE 2020-01-16 11:25:00 Juan Minor [facility] HAPTOGLOBIN 2020-01-16 11:25:00 Juan Minor [facility] US ABDOMINAL WITH DOPPLER 2020-01-16 06:30:00 Shady Gonzáles [facility] PROTHROMBIN TIME/INR 2020-01-16 03:38:[address] [facility] HEPATIC FUNCTION PANEL 2020-01-16 03:38:[address] [facility] BASIC METABOLIC PANEL (7) 2020-01-16 03:38:00 Juana Leena CH I [facility] MAGNESIUM 2020-01-16 03:38:00 Juana [facility] CBC W/PLT COUNT & AUTO 2020-01-16 03:38:00 Juana [facility] DRUG SCREEN, URINE, 2020-01-15 21:52:00 [facility] BLOOD TYPING, AUTOMATED 2020-01-15 18:16:00 Shady Gonzáles [facility] CHEST WITHOUT IV 2020-01-15 17:54:00 Shady Gonzáles [facility] XR CHEST 2 VIEWS 2020-01-15 16:57:00 Shady Gonzáles [facility] XR MANDIBLE 4 VIEWS MIN 2020-01-15 16:39:00 Shady Gonzáles [facility] VITAMIN D, 25-HYDROXY 2020-01-15 16:17:00 EliecerShady davidson [facility] COMPREHENSIVE METABOLIC 2020-01-15 16:17:00 Shady Gonzáles [facility] BILIRUBIN, DIRECT 2020-01-15 16:17:00 Shady Gonzáles [facility] CALCIUM, IONIZED 2020-01-15 16:17:00 EliecerShady davidson [facility] ZINC 2020-01-15 16:17:00 EliecerShady davidson [facility] ANTI-NUCLEAR ANTIBODY (REILLY) 2020-01-15 16:17:00 EliecerShady davidson [facility] ACTIN (SMOOTH MUSCLE) 2020-01-15 16:17:00 Shady Gonzáles [facility] ANTIBODY, IGG [facility] MITOCHONDRIA M2 ANTIBODY 2020-01-15 16:17:00 Shady Gonzáles [facility] (IGG) [facility] IRON, TIBC, % SAT. (WITHOUT 2020-01-15 16:17:00 Shady Gonzáles [facility] FERRITIN) [facility] FERRITIN 2020-01-15 16:17:00 EliecerShady davidson [facility] TRANSFERRIN 2020-01-15 16:17:00 Shady Gonzáles [facility] [id number]\\, SERUM 2020-01-15 16:17:00 Shady Gonzáles [facility] CERULOPLASMIN 2020-01-15 16:17:00 Shady Gonzáles [facility] ALPHA FETOPROTEIN (AFP), 2020-01-15 16:17:00 Shady Gonzáles [facility] TUMOR MARKER [facility] CARCINOEMBRYONIC ANTIGEN 2020-01-15 16:17:00 Shady Gonzáles [facility] (CEA) [facility] CARBOHYDRATE ANTIGEN 19-9 2020-01-15 16:17:00 EliecerShady davidson [facility] (CA 19-9) [facility] HEMOGLOBIN A1C 2020-01-15 16:17:00 Shady Gonzáles [facility] TSH 2020-01-15 16:17:00 EliecerShady davidson [facility] T3 2020-01-15 16:17:00 Shady Gonzáles [facility] T4 2020-01-15 16:17:00 Shady Gonzáles [facility] ETHANOL 2020-01-15 16:17:00 Shady Gonzáles [facility] FIBRINOGEN 2020-01-15 16:17:00 Shady Gonzáles [facility] PROTHROMBIN TIME/INR 2020-01-15 16:17:00 EliecerShady davidson [facility] APTT 2020-01-15 16:17:00 [facility] HE[facility]IS A ANTIBODY, IGM 2020-01-15 16:17:00 EliecerShady davidson [facility] HEPATITIS B SURFACE ANTIGEN 2020-01-15 16:17:00 EliecerShady davidson [facility] HEPATITIS B SURFACE 2020-01-15 16:17:00 EliecerShady morales [facility] ANTIBODY [facility] HEPATITIS B CORE ANTIBODY, 2020-01-15 16:17:00 EliecerShady morales [facility] TOTAL [facility] HEPATITIS B CORE ANTIBODY, 2020-01-15 16:17:00 EliecerShady davidson [facility] IGM [facility] HEPATITIS C ANTIBODY 2020-01-15 16:17:00 Shady Gonzáles [facility] RPR 2020-01-15 16:17:00 EliecerShady davidson [facility] CYTOMEGALOVIRUS ANTIBODY, 2020-01-15 16:17:00 EliecerShady morales [facility] IGG [facility] CYTOMEGALOVIRUS ANTIBODY, 2020-01-15 16:17:00 Eliecer, [facility] IGM [facility] EBV ANTIBODY, IGM 2020-01-15 16:17:00 Shady Gonzáles [facility] TYPE AND SCREEN, AUTOMATED 2020-01-15 16:17:00 Shady Gonzáles [facility] 2D ECHO W/ DOPPLER 2020-01-15 14:45:25 Ren Hernandez [facility] (CW/PW/COLOR) [facility] CAROTID DOPPLER BILATERAL 2020-01-15 14:41:00 Shady Gonzáles [facility] SODIUM, RANDOM URINE 2020-01-15 12:46:00 Graciela Stone [facility] CREATININE, RANDOM URINE 2020-01-15 12:46:00 Graciela Stone I [facility] AMMONIA 2020-01-15 08:32:00 [facility] 2020-01-15 08:32:00 Graciela Stone [facility] BASIC METABOLIC PANEL (7) 2020-01-15 03:56:[address] [facility] PROTHROMBIN TIME/INR 2020-01-15 03:56:[address] [facility] HEPATIC FUNCTION PANEL 2020-01-15 03:56:00 [facility] 2020-01-15 03:56:00 Ramone [facility] URIC ACID 2020-01-15 03:56:00 Eliecer [facility] GAMMA GLUTAMYL TRANSFERASE 2020-01-15 03:56:00 Eliecer [facility] (GGT) [facility] PHOSPHORUS 2020-01-15 03:56:00 Eliecer [facility] LIPID PANEL 2020-01-15 03:56:00 Shady Gonzáles [facility] CBC W/PLT COUNT & AUTO 2020-01-15 03:56:00 Ramone [facility] (CELLAVISION MANUAL DIFF) 2020-01-15 03:56:[address] [facility] BASIC METABOLIC PANEL (7) 2020-01-14 21:59:[address] [facility] PROTHROMBIN TIME/INR 2020-01-14 21:59:00 [facility] 2020-01-14 21:59:00 [facility] W/PLT COUNT & AUTO 2020-01-14 21:59:00 Ramone [facility] SARS-COV2/RT-PCR ([facility] & 2020-01-14 19:28:00 Tameka Hunter CH I [facility] - REF LABS) [facility] BASIC METABOLIC PANEL (7) 2020-01-03 14:34:00 LarryKadie mcdermott CH I [facility] HEPATIC FUNCTION PANEL 2020-01-03 14:34:00 Larry [facility] PROTHROMBIN TIME/INR 2020-01-03 14:34:00 [facility] ALPHA FETOPROTEIN (AFP), 2020-01-03 14:34:[address] [facility] - TUMOR MARKER [facility] CBC W/PLT COUNT & AUTO 2020-01-03 14:34:00 [facility] DIFFERENTIAL [facility] Plan of Care Planned Activity Planned Date Details Comments Source Future Scheduled 2030-01-16 [facility] 00:[facility]:00 malignant neoplasm of [facility] colon (procedure) [code = 410732465] Future Scheduled 2020-03-28 INFLUENZA VACCINE (#1) [facility]00 [code = INFLUENZA Medical Ce nter VACCINE (#1)] Future Scheduled 2020-02-26 INFLUENZA VACCINE [place] [facility] Test 00:00:00 [code = INFLUENZA VACCINE] Future Scheduled 2019-07-28 Medicare IPPE (WELCOME [facility] Test 00:00:00 TO MEDICARE) [code = Medical Center Medicare IPPE (WELCOME TO MEDICARE)] Future Scheduled 2019 65+ PNEUMOCOCCAL [place] [facility] Test 00:00:00 VACCINE (1 of 2 - [...] Future Scheduled 2004 COLONOSCOPY SCREENING [facility] [facility] Test 00:00:00 [code = COLONOSCOPY SCREENING] Future Scheduled 2004 SHINGLES VACCINES (#1) [facility] Test 00:00:00 [code = SHINGLES VACCINES (#1)] Future Scheduled 1975 Screening for [facility] Test 00:00:00 malignant neoplasm of cervix (procedure) [code = 431855508] Future Scheduled [address] [facility] - Test 00:00:00 [facility] cervix (procedure) [code = 188338026] Future Scheduled [address] [facility] - Test 00:00:00 [facility] breast (procedure) [code = 586779172] Encounters Start End Encounter Admission Attending Care Care Encounter Source Date/Time Date/Time Type Type Clinicians Facility Department ID 2020-02-03 2020-02-03 Outpatient Rafia Moratayat [id number] [address] 11:48:00 11:48:00 [facility] 2020-01-13 2020-01-13 Outpatient Rafia [place] [id number] 14:40:00 14:40:00 [facility] 2020-01-03 2020-01-03 Transition [place] [id number] 00:00:00 00:00:00 of Care Aye Ell[place] [id number] [place] [id number] [id number] 2019-12-28 2019-12-31 [facility] [id number] 21:39:45 13:10:00 Encounter Jacklyn Lewis [id number] [place] 4.2.7.2.686 [place] [id number] 2019-11-03 2019-11-03 [facility] [id number] 13:20:00 13:20:00 [facility] 2019-09-10 2019-09-10 [facility] [id number] 09:30:00 09:30:00 [facility] 2019-08-31 2019-08-31 Outpatient Rafia Sanford [id number] 08:00:00 08:00:00 [facility] 2019-08-24 2019-08-24 Outpatient Rafia Sanford [id number] 10:41:00 10:41:00 [facility] 2019-08-19 2019-08-19 Outpatient Rafia Sanford [id number] 13:00:00 13:00:00 [facility] Results Test Description Test Time Test Comments Results Result Comments Source Comprehensive metabolic panel 2020-02-15 13:17:00 Test Item Value Reference Range Interpretation Comme nts Protein, Total (test code 6.5 6.0- 8.3 gm/dL = 2885-2) Albumin (test code = 3.2 g/dL 3.5-5 L 51579-8) Alkaline Phosphatase 107 U/L 40-150 (test code = 6768-6) Total Bilirubin (test 7.4 mg/dL 0.2-1.2 H code = 1975-2) Sodium (test code = 140 meq/L 588-968 9107-2) Potassium (test code = 4.1 meq/L 3.5-5.1 2823-3) Chloride (test code = 107 meq/L 98-107 2075-0) CO2 (test code = 8-9) 26 meq/L 22-29 BUN (test code = 3094-0) 23 mg/dL 7-21 H Creatinine (test code = 1.33 mg/dL 0.57-1.25 H 2160-0) Glucose (test code = 87 mg/dL 70-105 2345-7) Calcium (test code = 9.5 mg/dL 8.4-10.2 47636-7) AST (test code = 1920-8) 39 U/L 5-34 H ALT (test code = 1742-6) 16 U/L 6-55 EGFR (test code = 40 mL/min/1.73 [place] [address]-0) ACCURATE CREATININE JACOB ANH IN PREDICTING GLOMERULAR FILT RATION RATE. ESTIMATED GFR IS NOT APPLICAB LE FOR DIALYSIS PATIEN TS. VALENTE (test code = VALENTE) Supervisor [employer] ID - LMSpecimen moderately icteric Lab Interpretation (test Abnormal code = 98602-4) [facility] Center[facility]il[facility], [id number] 13:17:00 Test Item Value Reference Range Interpretation Comments Bilirubin, Direct (test code 2.5 mg/dL 0.1-0.5 H = 1968-7) VALENTE (test code = VALENTE) Supervisor [employer] ID - LM Lab Interpretation (test Abnormal code = 72099-3) [facility] CenterMagnesium2020-07-21 13:17:00 Test Item Value Reference Range Interpretation Comments Magnesium (test code = 1.8 mg/dL 1.6-2.6 88740-8) VALENTE (test code = VALENTE) Supervisor [employer] ID - LM Lab Interpretation (test Normal code = 17079-0) [facility] CenterMAGNESIUM2020-07-21 13:17:00 Test Item Value Reference Range Interpretation Comments MAGNESIUM (BEAKER) (test code = 1.8 mg/dL 1.6-2.6 627) Supervisor [employer] ID - LMCOMPREHENSIVE METABOLIC [id number] 13:17:00 Test Item Value Reference Range Interpretation [...] S NOT APPLICABLE FOR DIALYSIS PATIEN TS. Supervisor [employer] ID - LMSpecimen moderately ictericBILIRUBIN, [id number] 13:17:00 Test Item Value Reference Range Interpretation Comments BILIRUBIN DIRECT (BEAKER) (test 2.5 mg/dL 0.1-0.5 H code = 706) Supervisor [employer] ID - LMProthrombin time/[id number] 13:05:00 Test Item Value Reference Range Interpretation Comments Protime (test code = 18.1 11.9- 14.2 H 5902-2) seconds INR (test code = 1.5 <=5.9 6301-6) VALENTE (test code = VALENTE) Effective 12/23/2018: PT Reference Range ChangeNew: 11.9-14.2 Previous: 11.7-14.7 RECOMMENDED COUMADIN/WARFARIN INR THERAPY RANGESSTANDARD DOSE: 2.0-3.0 Includes: PROPHYLAXIS for venous thrombosis, systemic embolization; TREATMENT for venous thrombosis and/or pulmonary embolus.HIGH RISK: Target INR is 2.5-3.5 for patients wiht mechanical heart valves. Lab Interpretation Abnormal (test code = 94023-9) [facility] CenterPROTHROMBIN TIME/[id number] 13:05:00 Test Item Value Reference Range Interpretation [...] heart valves.CBC with platelet count + automated [id number] 12:59:00 Test Item Value Reference Range Interpretation [...] K/CU MM L MPV (test code = 06339-6) 10.0 fL 9.4-12.3 nRBC (test code = [...] 2801) Lab Interpretation (test code = Abnormal 22577-6) [facility] CenterCBC W/PLT COUNT & AUTO [id number] 12:59:00 Test Item Value Reference Range Interpretation [...] 2801) CBC with platelet count + automated [id number] 15:30:00 Test Item Value Reference Interpretation Comments [...] MPV (test code = 10.4 fL 7.5-12.5 4070468) # Neutros (test 1128 1,500 - 7,800 [...] % Lymphs (test code 26.7 % = 2053106) % Monos (test code 11.9 % = ) % Eos (test code = 4.5 % 20200215) % Baso (test code = 0.5 % 20200216) Comment(s) (test Review of t he code = 20200222) peripheral s mear revealsdecrease d numbers of platelets. VALENTE (test code = FASTING:YESFASTIN VALENTE) G: YES RAC (test code = Performing RAC) Organization Information: Site ID: RGA Name: [facility] Address: [address] [place] [id number] Director: Alonso Carrasco Lab Interpretation Abnormal (test code = 46237-3) [facility] CenterPLATELET [id number] 15:30:00 Test Item Value Reference Range Interpretation Comments Platelet Estimate (test DECREASED ADEQUATE A code = 39150-4) VALENTE (test code = VALENTE) FASTING:YESFASTING: YES RAC (test code = RAC) Performing Organization Information: Site ID: [id number] Name: [facility] Address: [address] [place], [place] [id number] Director: Alonso Carrasco Lab Interpretation (test Abnormal code = 38537-6) [facility] CenterMetanephrines2020-07-06 10:36:00 Test Item Value Reference Interpretation Comments Range Metanephrine (test 46 pg/mL < OR = 57 This mushtaq t was developed code = 1715222) and its anal ytical performance characteristics havebeen determined by [employer] [facility].It h as not been cleared or appr jean-claude by FDA. This assay has been validatedpursua nt to the CLIA regulation s and is used for clinic al purposes. Normetanephrine 213 pg/mL < OR = 148 H This test w as developed (test code = and its analyti steven 9479105) performance characteristics havebeen determined by [employer] [facility].It h as not been cleared or appr [...] Reference: (1) Latrice Lorenz et al, Plasma Director Of Recruitment mogranin A or Urine FractionatedMet anephrines Follow-Up Testi ng Improves the Diagnostic Accuracy of PlasmaFractiona madai Metanephrines f or Pheochromocytom a. The Journal of ClinicalEndocri nology and Metabolism 93 ( 1),91-95, 2007. For addit ional information, pl ease refer tohttp://educat ion.Enbase.Theme Travel News (TTN)/f aq/MetFract Free(This link is being provided for informational/e ducational purposes only.) This test was developed a nd its analytical perf ormance characteristics havebeen determined by [facility].It h as not been cleared or appr jean-claude by FDA. This assay has been validatedpursua nt to the CLIA regulation s and is used for clinic al purposes. VALENTE (test code = Performing Lab VALENTE) EZ [facility] [address] [place] [address] I Shashank ADRIAN, PhD, AMINA Lab Interpretation Abnormal (test code = 91555-9) [facility] CenterCatecholamines, Fractionated, 24hr [id number] 11:55:00 Test Item Value Reference Interpretation Comments Range TOTAL VOLUME (test 1000 mL code = 4439872) Epinephrine,24 Hr <2 2- 24 mcg/24 h L Result b elow clinical Ur (test code = reportable r von for ) this analyte, w hich is 2 mcg/L.Repo rted result was calc ulated using 2 mcg/L. This test was develo ped and its analyti steven performance characteristics havebeen determ ined by [facility] .It has not been cl eared or approved by FDA. This assay has been validatedpursua nt to the CLIA regula tions and is used for clinical purpos es. Norepinephrine 9 15- 100 mcg/24 L This test was (test code = h developed and i ts 5573103) analytical performance characteristics havebeen determ ined by [facility] .It has not been cl eared or approved by FDA. This assay has been validatedpursua nt to the CLIA regula tions and is used for clinical purpos es. Calculated Total 9 26- 121 mcg/24 L This mushtaq t was E+Ne (test code = h developed and its 20190907) analytical performance characteristics havebeen determ ined by [employer] [facility] .It has not been cl eared [...] steven performance characteristics havebeen determ ined by [employer] [facility] .It has not been cl eared or approved by FDA. This assay has been validatedpursua nt to the CLIA regula tions and is used for clinical purpos es. Creatinine,24 Hr 0.88 0.50- 2.15 Urin (test code = g/24 h ) VALENTE (test code = Performing Lab VALENTE) EZ [facility] [address] [place] [address] Mark Encarnacion MD, PhD, AMINA Lab Interpretation Abnormal (test code = 20585-4) [facility] CenterMISCELLANEOUS LAB [id number] 12:33:00 Test Item Value Reference Range Interpretation Comments SCAN RESULT (test code = 9461276) Dexamethasone serum [id number] 12:33:00Scan ResultQUEST NON-INTERFACED LAB [facility] CenterALPHA-1-ANTITRYPSIN [id number] 16:28:00 Test Item Value Reference Range Interpretation Comments Lab Interpretation (test code = Normal 84432-3) [facility] CenterMetanephrines, 24 hour [id number] 12:57:00 Test Item Value Reference Interpretation Comments Range TOTAL VOLUME (test 1000 mL code = 1349936) Metanephrine (test 205 90- 315 This mushtaq t was code = 6350524) mcg/24 h developed an d its analytical perf ormance characteristics havebeen determ ined by [facility] .It has not been cleare d or approved by FDA . This assay has been validatedpursua nt to the [place] regula [facility] and is used for clinical purpos es. Normetanephrine 657 122- 676 This test w as (test code = mcg/24 h developed and i ts 2398840) analytical perf ormance characteristics havebeen determ ined by [facility] .It has not been cleare d or approved by FDA . This assay has been validatedpursua nt to the [place] regula t[facility] health and is used for clinical purpos es. [...] perf ormance characteristics havebeen determ ined by [facility] .It has not been cleare d or approved by FDA . This assay has been validatedpursua nt to the [place] regula t[facility] and is used for clinical purpos es. VALENTE (test code = Performing Lab VALENTE) EZ [facility] [address] [place] [address] Mark Encarnacion MD, PhD, AMINA Lab Interpretation Abnormal (test code = 07993-6) [facility] CenterCalcium, [id number] 05:42:00 Test Item Value Reference Range Interpretation Comments Calcium, Ion (test code = 1993-) 1.11 mmol/L 1.12-1.27 L pH, Blood (test code = 18795-5) 7.41 Lab Interpretation (test code = Abnormal 86868-0) [facility] CenterCALCIUM, [id number] 05:42:00 Test Item Value Reference Range Interpretation Comments CALCIUM IONIZED (BEAKER) (test 1.11 mmol/L 1.12-1.27 L code = 698) PH, BLOOD (BEAKER) (test code = 7.41 1810) COMPREHENSIVE METABOLIC [id number] 04:57:00 Test Item Value Reference Range Interpretation [...] S NOT APPLICABLE FOR DIALYSIS PATIEN TS. Supervisor [employer] ID - BSSpecimen moderately ictericHepatic function [id number] 04:53:00 Test Item Value Reference Range Interpretation Comments Protein, Total (test code 5.7 6.0- 8.3 gm/dL L = 2885-2) Albumin (test code = 3.4 g/dL 3.5-5 L 43454-8) Total Bilirubin (test 6.9 mg/dL 0.2-1.2 H code = 1974-2) Bilirubin, Direct (test 2.2 mg/dL 0.1-0.5 H code = 1967-7) Alkaline Phosphatase 58 U/L 40-150 (test code = 6768-6) AST (test code = 1920-8) 36 U/L 5-34 H ALT (test code = 1742-6) 13 U/L 6-55 VALENTE (test code = VALENTE) Supervisor [employer] ID - BSSpecimen moderately icteric Lab Interpretation (test Abnormal code = 13604-1) [facility] CenterPhosphorus2020-07-01 04:53:00 Test Item Value Reference Range Interpretation Comments Phosphorus (test code = 3.2 mg/dL 2.3-4.7 2777-1) VALENTE (test code = VALENTE) Supervisor [employer] ID - BS Lab Interpretation (test Normal code = 31075-3) [facility] CenterPHOSPHORUS2020-07-01 04:53:00 Test Item Value Reference Range Interpretation Comments PHOSPHORUS (BEAKER) (test code = 3.2 mg/dL 2.3-4.7 604) Supervisor [employer] ID - [id number] 04:53:00 Test Item Value Reference Range Interpretation Comments MAGNESIUM (BEAKER) (test code = 1.7 mg/dL 1.6-2.6 627) Supervisor [employer] ID - BSHEPATIC FUNCTION [id number] 04:53:00 Test Item Value Reference Range Interpretation [...] (test code = 13 U/L 6-55 347) Supervisor [employer] ID - BSSpecimen moderately ictericCBC W/PLT COUNT & AUTO [id number] 04:42:00 Test Item Value Reference Range Interpretation [...] PERCENT (BEAKER) (test code = 2801) PROTHROMBIN TIME/[id number] 04:36:00 Test Item Value Reference Range Interpretation [...] (test No organisms seen code = 1123) [facility] CenterBODY FLUID CULTURE + GRAM [id number] 12:05:00 Test Item Value Reference Range Interpretation Comments CULTURE (BEAKER) (test No growth code = 1095) GRAM STAIN RESULT <1+ White blood cells (BEAKER) (test code = seen 1123) GRAM STAIN RESULT No organisms seen (BEAKER) (test code = 85122) Manual [id number] 07:35:00 Test Item Value Reference Range Interpretation [...] Poikilocytes (test code = 2+ moderate 966) [place] Cells (test code = 2+ moderate 474) Artifact (test code = Present 3432) Platelet Conc (test code Decreased = 3438) VALENTE (test code = VALENTE) Supervisor [employer] ID - 6000Operator ID - Maria Del Carmen Quintana comments: Slide comments: Lab Interpretation (test Abnormal code = 35934-3) [facility] W/PLT COUNT & AUTO [id number] 07:35:00 Test Item Value Reference Range Interpretation [...] CONCENTRATION Decreased (CELLAVISION)(BEAKER) (test code = 3438) Supervisor [employer] ID - 6000Operator ID - Maria Del Carmen Lilian comments: Slide comments:Basic Metabolic [id number] 06:24:00 Test Item Value Reference Range Interpretation Comments Sodium (test code = 140 meq/L 509-704 6303-2) Potassium (test code 3.4 meq/L 3.5-5.1 L = 2823-3) Chloride (test code = 105 meq/L 98-107 2075-0) CO2 (test code = 25 meq/L 22-29 2028-9) BUN (test code = 31 mg/dL 7-21 H 3094-0) Creatinine (test code 2.35 mg/dL 0.57-1.25 H = 2160-0) Glucose (test code = 108 mg/dL 70-105 H 2345-7) Calcium (test code = 8.7 mg/dL 8.4-10.2 35867-5) EGFR (test code = 21 mL/min/1.[place] [address]-7) NOT ACCURATE CREATININE CLEARANCE IN PREDICTING GLOMERULAR FILTRATION RATE . ESTIMATED GFR I S NOT APPLICABLE FOR DIALYSIS PATIENTS. VALENTE (test code = VALENTE) Supervisor [employer] ID - MITCH Jane moderately icteric Lab Interpretation Abnormal (test code = 82425-1) [facility] METABOLIC [id number] 06:24:00 Test Item Value Reference Range Interpretation [...] S NOT APPLICABLE FOR DIALYSIS PATIEN TS. Supervisor [employer] ID - MITCH Goetzimeyahaira moderately ictericHEPATIC FUNCTION [id number] 06:23:00 Test Item Value Reference Range Interpretation [...] (test code = 13 U/L 6-55 347) Supervisor [employer] ID - MITCH LSpecimen moderately [id number] 06:22:00 Test Item Value Reference Range Interpretation Comments MAGNESIUM (BEAKER) (test code = 1.8 mg/dL 1.6-2.6 627) Supervisor [employer] ID - MITCH LPROTHROMBIN TIME/[id number] 04:22:00 Test Item Value Reference Range Interpretation [...] = No growth in 5 days 6463-4) [facility] CenterBLOOD [id number] 23:00:00 Test Item Value Reference Range Interpretation Comments CULTURE (BEAKER) (test No growth in 5 days code = 1095) BLOOD [id number] 23:00:00 Test Item Value Reference Range Interpretation Comments CULTURE (BEAKER) (test No growth in 5 days code = 1095) DLCO (single breath diffusion)2020-01-24 10:41:00Epifanio Giles RRT, SUBSTATION OPERATOR 01/24/2020 10:52 [facility] PFT CHARTING REPORT Infection Control/Hand Hygiene procedures followed throughout the encounter with patient: YesPatient Identification Method: Patient name verified on armband, and Medical record on armband, Is the order complete?: Yes Account ID#: [id number] Name: Cici Calderno Birthdate: 1955 Age: 64 y.o. Sex: female [...] and patient released from the lab without adverseoutcome.[facility] CenterPulmonary Funct Lab [id number] 10:41:00Epifanio Giles, PROFESSOR OF CHEMICAL ENGINEERING, SUBSTATION OPERATOR 01/24/2020 10:52 [facility] PFT CHARTING REPORT Infection Control/Hand Hygiene procedures followed throughout the encounter with patient: YesPatient Identification Method: Patient name verified on armband, and Medical record on armband, Is the order complete?: Yes Account ID#: [id number] Name: Cici Calderon Birthdate: 1955 Age: 64 [...] and patient released from the lab without adverseoutcome.[facility] CenterLu [id number] 10:41:00Epifanio Giles, PROFESSOR OF CHEMICAL ENGINEERING, SUBSTATION OPERATOR 01/24/2020 10:52 [facility] PFT CHARTING REPORT Infection Control/Hand Hyg iene procedures followed throughout the encounter with patient: YesPatient Identification Method: Patient name verified on armband, and Medical record on armband, Is the order complete?: Yes Account ID#: [id number] Name: Cici Calderon Birthdate: 1955 Age: 64 [...] and patient released from the lab without adverseoutcome.[facility]6 MINUTE WALK(FOR LUNG TRANSPLANT ONLY)2020-01-24 10:20:00Janina Meehan, PROFESSOR OF CHEMICAL ENGINEERING, SUBSTATION OPERATOR 01/24/2020 2:39 [facility] PFT CHARTING REPORT Infection Control/Hand Hygiene procedures followed throughout the encounter with patient: YesPatient Identification Method: Patient name verified on armband, and Medical record on armband, Is the order complete?: Account ID#: [id number] Name: Cici Calderon Birthdate: 1 09/08/1954 Age: [...] patient released from the lab without adverse outcome.[facility] CenterU/S, [id number] 09:43:00 Referring: Dr. Rowdy Christie to be ordered:->Body Fluid Culture (w/Gram Stain, C\\T\\S)Labs marko ordered:->Cell CountReason for exam:->Acute Kidney Injury - rule out SBP - can remove volume of up to 4-5 L (given ANDERS)Should this be performed at the bedside?->YesFINAL REPORT Ultrasound guided paracentesis Clinical History: Ascites. Sedation: None. Drosophere Operator: Christine Ward PA-C Supervising Physician: Natan Chisholm MD Qa Tech: None. Estimated Blood Loss: < 1 mL. [...] anesthesia was achieved with lidocaine, a 5 Turkmen one-step catheter was advanced into theperitoneal cavity under ultrasound guidance. After completion of drainage, the catheter was removed.There was no evidence of complication. Impression:Successful ultrasound guided paracentesis. Signed:Natan Chisholm Verified Date/Time: 01/24/2020 09:43:05 Reading Location: [address] Ultrasound Reading Room US [id number] 09:43:00Interface, External Ris In - 01/24/2020 9:45 AM CDTFINAL REPORT Ultrasound guided paracentesis Clinical History: Ascites. Sedation: None. Drosophere Operator: Christine Ward PA-C Supervising Physician: Natan Chisholm MD Qa Tech: None. Estimated Blood Loss: < 1 mL. [...] anesthesia was achieved with lidocaine, a 5 Turkmen one-step catheter was advanced into the peritoneal cavity under ultrasound guidance. After completion of drainage, the catheter was removed. There was no evidence of complication. Impression:Successful ultrasound guided paracentesis. Signed: Natan Chisholm MDReport Verified Date/Time: 12/27 09:43:05 Reading Location: [place] [id number] Ultrasound Reading [facility] Center[facility]OLIC [id number] 06:18:00 Test Item Value Reference Range Interpretation [...] S NOT APPLICABLE FOR DIALYSIS PATIEN TS. Supervisor Metal Fabricating ID - MITCH LSpecimen moderately [id number] 05:38:00 Test Item Value Reference Range Interpretation Comments PHOSPHORUS (BEAKER) (test code = 2.8 mg/dL 2.3-4.7 604) Supervisor [employer] ID - MITCH [id number] 05:38:00 Test Item Value Reference Range Interpretation Comments MAGNESIUM (BEAKER) (test code = 1.8 mg/dL 1.6-2.6 627) Supervisor [employer] ID - MITCH LHEPATIC FUNCTION [id number] 05:38:00 Test Item Value Reference Range Interpretation [...] (test code = 11 U/L 6-55 347) Supervisor [employer] Fabricating ID - MITCH RUTHERFORDpecimen moderately ictericCALCIUM, [id number] 04:56:00 Test Item Value Reference Range Interpretation Comments CALCIUM IONIZED (BEAKER) (test 1.09 mmol/L 1.12-1.27 L code = 698) PH, BLOOD (BEAKER) (test code = 7.43 1810) PROTHROMBIN TIME/[id number] 04:48:00 Test Item Value Reference Range Interpretation [...] mechanical heart valves.CBC W/PLT COUNT & AUTO [id number] 04:36:00 Test Item Value Reference Range Interpretation [...] (BEAKER) (test code = 2801) Prepare Leuko-Red [id number] 23:54:00 Test Item Value Reference Range Interpretation Comments CROSSMATCH (test code = 2264) COMPATIBLE Unit ABO (test code = A Pos 8474964) UNIT NUMBER (test code = [id number] 934-0) Status (test code = 6046265) TX_TIMEINCHART Blood Bank Product (test code RED BLOOD CELLS = 2263) PRODUCT CODE (test code = P4329D99 933-2) [facility] CenterRubeola antibody [id number] 18:06:00 Test Item Value Reference Range Interpretation Comments Rubeola Ab, 235 AU/mL REFERENCE RANGE : Igg (test code <13.50 AU/mL = 46994-6) AU/mL Interpretation ==== <13.50 Negative 13.50-16.49 Equivocal >16.49 Positive A posi tive result indicate s that the patient hasantibody to measles virus. It does notdifferentiat e between an acti ve or past infection. The clinical diagno sis must be interpr eted inconjunction w ith clinical signs and symptoms ofthe patient. For additional information, pl ease refer [email or web address] ion.[facility] stDiagnostics.c om/faq/ LXX935(This rosa k is being provided for informational/e ducatio nal purposes on ly.) VALENTE (test code Performing Lab = VALENTE) *QDID [facility] [address] [place] [address] Sudhakar Hargrove MD [facility] CenterMitochondria M2 Antibody (IgG)2020-01-23 13:50:00 Test Item Value Reference Range Interpretation Comments Mitochondria M2 Ab <20.0 See Note: U Reference (test code = Range:NEGATIVE: ) < OR = 20.0EQUIVOCAL: 20.1-24.9POSITI V E: > OR = 25.0 VALENTE (test code = Performing Lab VALENTE) EZ [facility] [address] [place] [address] Mark Encarnacion MD, PhD, AMINA [facility] CenterMumps antibody, [id number] 13:38:00 Test Item Value Reference Range Interpretation [...] (test Performing Lab code = VALENTE) *QDID [facility] [address] [place] [address] Sudhakar Hargrove MD [facility] CenterCBC W/PLT COUNT & AUTO [id number] 12:26:00 Test Item Value Reference Range Interpretation [...] CONCENTRATION Decreased (CELLAVISION)(BEAKER) (test code = 3438) Supervisor Metal Fabricating ID - 6000Operator ID - Charo Jordan comments: Slide comments: BASIC METABOLIC [id number] 07:18:00 Test Item Value Reference Range Interpretation [...] S NOT APPLICABLE FOR DIALYSIS PATIEN TS. Supervisor [employer] Fabric[employer] ID - MITCH LSpecimen moderately [id number] 07:17:00 Test Item Value Reference Range Interpretation Comments MAGNESIUM (BEAKER) 1.6 mg/dL 1.6-2.6 Specimen slightly (test code = 627) hemolyzed Supervisor [employer]ric[employer] ID - MITCH [id number] 07:17:00 Test Item Value Reference Range Interpretation Comments PHOSPHORUS (BEAKER) 2.4 mg/dL 2.3-4.7 Specimen slightly (test code = 604) hemolyzed Supervisor Metal [employer]ric[employer] ID Mercedes MEYER LHEPATIC FUNCTION [id number] 07:17:00 Test Item Value Reference Range Interpretation [...] Specimen slightly (test code = 347) hemolyzed Supervisor [employer]ricating ID - MITCH LSpecimen moderately ictericB-type Natriuretic Factor (BNP) 2020-01-23 06:55:00 Test Item Value Reference Range Interpretation Comments BNP (test code = 73887-7) 2179 pg/mL 0-100 H VALENTE (test code = VALENTE) Supervisor Metal Fabricating ID - MITCH L Lab Interpretation (test Abnormal code = 47308-0) [facility] CenterB-TYPE NATRIURETIC FACTOR (BNP)2020-01-23 06:55:00 Test Item Value Reference Range Interpretation Comments B-TYPE NATRIURETIC PEPTIDE 2179 pg/mL 0-100 H (BEAKER) (test code = 700) Supervisor Metal Fabricating ID - MITCH LCALCIUM, [id number] 06:31:00 Test Item Value Reference Range Interpretation Comments CALCIUM IONIZED (BEAKER) (test 1.07 mmol/L 1.12-1.27 L code = 698) PH, BLOOD (BEAKER) (test code = 7.45 1810) PROTHROMBIN TIME/[id number] 06:00:00 Test Item Value Reference Range Interpretation [...] for patients wiht mechanical heart valves.Prepare Leuko-Red [id number] 23:54:00 Test Item Value Reference Range Interpretation Comments Unit ABO (test code = 8081297) O Pos UNIT NUMBER (test code = [id number] 934-0) Status (test code = 6426315) TX_TIMEINCHART Blood Bank Product (test code PLATELETS = 2263) PRODUCT CODE (test code = S6137U61 933-2) [facility] CenterCBC W/PLT COUNT & AUTO [id number] 10:35:00 Test Item Value Reference Range Interpretation [...] CONCENTRATION Decreased (CELLAVISION)(BEAKER) (test code = 3438) Supervisor Metal Fabricating ID - 6000Operator ID - Lizett OverholtUser comments: Slide comments: [id number] 10:05:00 Test Item Value Reference Range Interpretation Comments Cortisol, Total (test code 1.6 ug/dL 3.7-19.4 L = 2755) VALENTE (test code = VALENTE) Supervisor Metal Fabricating ID - MITCH [place] Lab Interpretation (test Abnormal code = 04571-2) [facility] CenterCORTISOL2020-06-27 10:05:00 Test Item Value Reference Range Interpretation Comments CORTISOL, TOTAL (BEAKER) (test code 1.6 ug/dL 3.7-19.4 L = 2755) Supervisor Metal Fabricating ID - MITCH LDirect AHG (KRISTI)/Direct [id number] 07:49:00 Test Item Value Reference Range Interpretation Comments Direct AHG-IGG (test code = 1006-6) NEGATIVE Direct AHG-C3B, C3D (test code = NEGATVIE 1003-3) [facility] CenterABORH, [id number] 07:37:00 Test Item Value Reference Range Interpretation Comments ABO Grouping (test code = 2588) A Rh Factor (test code = 2589) POS [facility] CenterCALCIUM, [id number] 06:31:00 Test Item Value Reference Range Interpretation Comments CALCIUM IONIZED (BEAKER) (test 1.10 mmol/L 1.12-1.27 L code = 698) PH, BLOOD (BEAKER) (test code = 7.44 1810) BASIC METABOLIC [id number] 06:20:00 Test Item Value Reference Range Interpretation [...] S NOT APPLICABLE FOR DIALYSIS PATIEN TS. Supervisor Metal Fabricating ID - PIAYA LSpecimen moderately [id number] 06:12:00 Test Item Value Reference Range Interpretation Comments MAGNESIUM (BEAKER) (test code = 1.7 mg/dL 1.6-2.6 627) Supervisor Metal Fabricating ID - PIAYA LHEPATIC FUNCTION [id number] 06:12:00 Test Item Value Reference Range Interpretation [...] (test code = 10 U/L 6-55 347) Supervisor Metal Fabricating ID - MITCH Jane moderately ictericPROTHROMBIN TIME/[id number] 05:48:00 Test Item Value Reference Range Interpretation [...] is2.5-3.5 for patients wiht mechanical heart valves.Renin, [id number] 22:50:00 Test Item Value Reference Range Interpretation Comments PRA,LC/MS/MS 1.51 ng/mL/h 0.25-5.82 This test was developed (test code = and its analyti steven 5000926) performance characteristics havebeen determined by [facility].It h as not been cleared or approved by FDA. This as say has been validatedp ursuant to the CLIA reg ulations and is used for clinical purposes. VALENTE (test Performing Lab code = VALENTE) EZ [facility] [address] [place] [address] Mark Encarnacion MD, PhD, AMINA [facility] CenterBody fluid cell count with [id number] 18:33:00 Test Item Value Reference Range Interpretation Comments Appearance (test code = 9335-1) Hazy Clear A Color (test code = 6824-7) Cele Colorless, Straw A RBCs (test code = 24878-7) 4000 <=1 /cu mm H Adjusted WBC Count (test code = 86 <=5 /cu mm H 89960-3) Lining Cells (test code = 1 <=1 /cu mm 81950-7) % Segs (test code = 95581-5) 7 % % Lymphs (test code = 85457-4) 83 % % Monos (test code = 58085-6) 10 % % Eos (test code = 51376-9) 0 % % Baso (test code = 93663-1) 0 % Container Body Fluid (test code Sterile Vial = 2873) Lab Interpretation (test code = Abnormal 74268-9) [facility] CenterBODY FLUID CELL COUNT WITH [id number] 18:33:00 Test Item Value Reference Range Interpretation [...] = 2873) Peripheral Blood Smear - Hold [id number] 15:19:00 Test Item Value Reference Range Interpretation Comments Peripheral Smear Save (test code = saved 1815) [facility] CenterPERIPHERAL BLOOD SMEAR - HOLD [id number] 15:19:00 Test Item Value Reference Range Interpretation Comments PERIPHERAL SMEAR SAVE (BEAKER) (test saved code = 1815) [id number] 14:41:00 Test Item Value Reference Interpretation Comments Range Aldosterone (test 22 ng/dL Adult Ref erence code = 2384538) Ranges for Aldosterone: Upright 8:00-10 :00 am < or = 28 ng/ dL Upright 4:00-6: 00 pm < or = 21 ng/ dL Supine 8:00-10 :00 am 3-16 ng/dL Th is test was developed a nd its analytical perf ormance characteristics havebeen determ ined by [facility] .It has not been cleare d or approved by FDA . This assay has been validatedpursua nt to the CLIA regula tions and is used for clinical purpos es. VALENTE (test code = Performing Lab VALENTE) EZ [facility] [address] [place] [address] Mark Encarnacion MD, PhD, AMINA [facility] CenterT Spot [id number] 13:05:00 Test Item Value Reference Range Interpretation Comments T-Spot TB (test code = 52397-9) Negative Neg Ctrl Spot Count (test code = 0 34735-4) Panel A Spot (test code = 36339-3) 0 Panel B Spot (test code = 65838-6) [address] (test code = 0 72749-8) Scan Result (test code = 4941097) [facility] SPOT [id number] 13:05:00 Test Item Value Reference Range Interpretation Comments T-SPOT TB (BEAKER) (test code = Negative 1683) NEG CONTROL SPOT COUNT (BEAKER) 0 (test code = 1684) PANEL A SPOT (BEAKER) (test code = 0 1685) PANEL B SPOT (BEAKER) (test code = 0 1686) POS CONTROL SPOT CT (BEAKER) (test 0 code = 1687) SCAN RESULT (test code = 3776037) BLOOD [id number] 13:00:00 Test Item Value Reference Range Interpretation Comments CULTURE (BEAKER) (test No growth in 5 days code = 1095) BLOOD [id number] 12:00:00 Test Item Value Reference Range Interpretation Comments CULTURE (BEAKER) (test No growth in 5 days code = 1095) [id number] 10:25:00 Test Item Value Reference Range Interpretation Comments CORTISOL, TOTAL (BEAKER) (test code 5.1 ug/dL 3.7-19.4 = 2755) Supervisor Metal Fabricating ID - TUAN CCOMPREHENSIVE METABOLIC [id number] 10:23:00 Test Item Value Reference Range Interpretation [...] S NOT APPLICABLE FOR DIALYSIS PATIEN TS. Supervisor Metal Fabricating ID - JUL CSpecimen moderately ictericVaricella zoster antibody, IgG 2020-01-21 10:15:00 Test Item Value Reference Range Interpretation Comments Varicella IgG (test 3.6 code = 45675-7) VALENTE (test code = VALENTE) VARICELLA ZOSTER RESULT INTERPRETATIONS: <=0.8 Al Nonreactive: Presumed non-immune to VZV 0.9-1.0 Al Equivocal >=1.1 Al Reactive: Presumed immune to VZV [facility] HospitalRubella antibody, [id number] 10:15:00 Test Item Value Reference Range Interpretation Comments Rubella IgG Quant (test 127.0 <8.0 IU/mL H code = 8014-3) VALENTE (test code = VALENTE) Rubella IgG Result Interpretation: </= 7.0 IU/mL Negative - Presumed non-immune 8.0 - 9.9 IU/mL Equivocal >= 10.0 IU/mL Positive - Presumed immune Lab Interpretation (test Abnormal code = 52711-2) [facility] CenterRUBELLA ANTIBODY, [id number] 10:15:00 Test Item Value Reference Range Interpretation Comments RUBELLA IGG QUANTITATION (BEAKER) 127.0 IU/mL <8.0 H (test code = 572) Rubella IgG Result Interpretation: </= 7.0 IU/mL Negative - Presumed non- immune 8.0 - 9.9 IU/mL Equivocal >= 10.0 IU/mL Positive - Presumed immune VARICELLA ZOSTER ANTIBODY, [id number] 10:15:00 Test Item Value Reference Range Interpretation Comments VARICELLA ZOSTER IGG (AL) (BEAKER) 3.6 (test code = 3197) VARICELLA ZOSTER RESULT INTERPRETATIONS: <=0.8 Al Nonreactive: Presumed non-immune to VZV 0.9-1.0 Al Equivocal >=1.1 Al Reactive: Presumed immune to VZVReticulocyte [id number] 10:12:00 Test Item Value Reference Range Interpretation Comments % Retic (test code = 5.3 % 0.5-1.7 H 39369-5) VALENTE (test code = VALENTE) Supervisor Metal Fabricating ID - 6000 Lab Interpretation (test Abnormal code = 83238-1) [facility] CenterRETICULOCYTE [id number] 10:12:00 Test Item Value Reference Range Interpretation Comments RETICULOCYTE COUNT PCT (BEAKER) (test 5.3 % 0.5-1.7 H code = 575) Supervisor [employer] Fabricating ID - [id number] 10:06:00 Test Item Value Reference Range Interpretation Comments PHOSPHORUS (BEAKER) (test code = 3.1 mg/dL 2.3-4.7 604) Supervisor Metal Fabricating ID - TUAN [id number] 10:06:00 Test Item Value Reference Range Interpretation Comments MAGNESIUM (BEAKER) (test code = 1.7 mg/dL 1.6-2.6 627) Supervisor Metal Fabricating ID - TUAN CHEPATIC FUNCTION [id number] 10:06:00 Test Item Value Reference Range Interpretation [...] (test code = 12 U/L 6-55 347) Supervisor Metal Fabricating ID - TUAN CSpecimen moderately ictericRAD, CHEST, [...] Walker Verified Date/Time: 01/21/2020 10:03:32 Reading Location: [facility] Radiology Reading Room XR chest 1 view portable / [id number] 10:03:00 Interface, External Ris In - 01/21/2020 [...] Walker Verified Date/Time: 01/21/2020 10:03:32 Reading Location: [facility] Radiology Reading Room [facility] W/PLT COUNT & AUTO [id number] 09:59:00 Test Item Value Reference Range Interpretation [...] PERCENT (BEAKER) (test code = 2801) PROTHROMBIN TIME/[id number] 09:53:00 Test Item Value Reference Range Interpretation [...] ABDOMEN, WITHOUT CONTRAST 2020-01-21 07:51:00Referring: [facility]: MRI of the abdomen WITHOUT [...] MDReport Verified Date/Time: 01/21/2020 07:51:30 Reading Location: [facility] Diagnostic Imaging Reading Room - [place] [address] MR abdomen without IV contrast 2020-01-21 07:51:00Interface, [...] Crocker Verified Date/Time: 01/21/2020 07:51:30 Reading Location: [facility] Diagnostic Imaging Reading Room - [place] [address] [address] [facility] Type and screen, [id number] 22:06:00 Test Item Value Reference Range Interpretation Comments ABO/RH AUTOMATED (BEAKER) (test A POSITIVE code = 2260) Ab Scrn (test code = 890-4) NEGATIVE [facility] CenterRAD, CHEST, 1 VIEW, NON [id number] 21:16:00 Referring: Dr. Rowdy Zhang for exam:->JVD [...] MDReport Verified Date/Time: 01/20/2020 21:16:28 Reading Location: [facility] C013 Transitional Reading Room Cryptococcal [id number] 11:36:00 Test Item Value Reference Range Interpretation Comments Cryptococcal Antigen, Serum Negative Negative, Interference (test code = 76867-6) Lab Interpretation (test code Normal = 76030-1) [facility] CenterCRYPTOCOCCAL [id number] 11:36:00 Test Item Value Reference Range Interpretation Comments CRYPTOCOCCAL ANTIGEN, SERUM Negative Negative, Interference (BEAKER) (test code = 1828) CBC W/PLT COUNT & AUTO [id number] 09:56:00 Test Item Value Reference Range Interpretation [...] CONCENTRATION Decreased (CELLAVISION)(BEAKER) (test code = 3438) Supervisor [employer] Fabricating ID - 6000Operator ID - Lizett OverholtUser comments: Slide comments: COMPREHENSIVE METABOLIC [id number] 05:46:00 Test Item Value Reference Range Interpretation [...] S NOT APPLICABLE FOR DIALYSIS PATIEN TS. Supervisor Metal Fabricating ID - MITCH LSpecimen moderately [id number] 05:37:00 Test Item Value Reference Range Interpretation Comments PHOSPHORUS (BEAKER) (test code = 2.8 mg/dL 2.3-4.7 604) Supervisor Metal Fabricating ID - MITCH [id number] 05:37:00 Test Item Value Reference Range Interpretation Comments MAGNESIUM (BEAKER) (test code = 1.9 mg/dL 1.6-2.6 627) Supervisor Metal Fabricating ID - MITCH LHEPATIC FUNCTION [id number] 05:37:00 Test Item Value Reference Range Interpretation [...] (test code = 9 U/L 6-55 347) Supervisor Metal Fabricating ID - MITCH Jane moderately ictericPROTHROMBIN TIME/[id number] 04:53:00 Test Item Value Reference Range Interpretation [...] is2.5-3.5 for patients wiht mechanical heart valves.CALCIUM, [id number] 04:45:00 Test Item Value Reference Range Interpretation Comments CALCIUM IONIZED (BEAKER) (test 1.14 mmol/L 1.12-1.27 code = 698) PH, BLOOD (BEAKER) (test code = 7.36 1810) Sodium, random [id number] 00:37:00 Test Item Value Reference Range Interpretation Comments Sodium Urine (test <20 meq/L code = 2955-3) VALENTE (test code = Reference Range: No VALENTE) NormalsOperator ID - MITCH L [facility] ValleyODIUM, RANDOM [id number] 00:37:00 Test Item Value Reference Range Interpretation Comments SODIUM URINE (BEAKER) (test code = < meq/L 243) Reference Range: No NormalsOperator ID - MITCH LUrinalysis w/Microscopic 2020-01-20 00:30:00 Test Item Value Reference Range Interpretation Comments Color, UA (test code = Yellow 5778-6) Clarity, UA (test code = Hazy 5767-9) Specific [place], UA (test 1.017 1.001-1.035 code = 5811-5) pH, UA (test code = 5.5 5.0-8.0 5803-2) Protein, UA (test code = 20 mg/dL Negative A 92469-8) Glucose, UA (test code = Negative Negative 365) Ketones, UA (test code = Negative Negative 2514-8) Bilirubin, UA (test code = Negative Negative 04985-0) Blood, UA (test code = Small Negative A 87739-3) Nitrite, UA (test code = Negative Negative 5802-4) Leukocytes, UA (test code Trace Negative A = 5799-2) Urobilinogen, UA (test 0.2 mg/dL 0.2-1 code = 51877-0) RBC, UA (test code = 1 /HPF 31269-3) WBC, UA (test code = 3 /HPF 5821-4) Bacteria, UA (test code = Rare 18541-3) Squam Epithel, UA (test 3 /HPF code = 67492-2) Hyaline Casts, UA (test 3 /LPF code = 27075-5) Specimen Source (test code = 2795) VALENTE (test code = VALENTE) Supervisor Metal Fabricating ID - [auto]Supervisor Metal Fabricating ID - tech Lab Interpretation (test Abnormal code = 11698-0) [facility] CenterUrinalysis w/Microscopic + Reflex to Culture 2020-01-20 00:30:00 Test Item Value Reference Range Interpretation Comments Color, UA (test code = 5778-6) Yellow Clarity, UA (test code = 5767-9) Hazy Specific [place], UA (test code = 1.017 1.001-1.035 5811-5) pH, UA (test code = 5803-2) 5.5 5.0-8.0 Protein, UA (test code = 24766-0) 20 mg/dL Negative A Glucose, UA (test code = 365) Negative Negative Ketones, UA (test code = 2514-8) Negative Negative Bilirubin, UA (test code = 89184-5) Negative Negative Blood, UA (test code = 39879-8) Small Negative A Nitrite, UA (test code = 5802-4) Negative Negative Leukocytes, UA (test code = 5799-2) Trace Negative A Urobilinogen, UA (test code = 0.2 mg/dL 0.2-1 82395-7) RBC, UA (test code = 37432-9) 1 /HPF WBC, UA (test code = 5821-4) 3 /HPF Bacteria, UA (test code = 44232-4) Rare Squam Epithel, UA (test code = 3 /HPF 74834-2) Hyaline Casts, UA (test code = 3 /LPF 11221-9) Specimen Source (test code = 2795) Lab Interpretation (test code = Abnormal 17750-1) [facility] CenterURINALYSIS W/ REFLEX URINE [id number] 00:30:00 Test Item Value Reference Range Interpretation [...] SOURCE(BEAKER) (test code = 2795) URINALYSIS W/ [id number] 00:30:00 Test Item Value Reference Range Interpretation [...] /LPF 514) SOURCE(BEAKER) (test code = 2795) Supervisor [employer] ID - [auto]Supervisor Metal Fabricating ID - techActin (Smooth Muscle) Antibody, IgG [...] of patients withautoimmune hepatitis (AIH) type 1, myojsaidnlpdr29 % of patients with autoimmune cholangitis,lis sherine mately 30% of patients with primary biliarycirrhosi s, and approximate ly 2% of healthy people.High beatriz ues are closely correlated with AIH type 1. VALENTE (test code = Performing Lab VALENTE) EZ [facility] [address] [place] [address] Mark Encarnacion MD, PhD, AMINA Lab Interpretation Abnormal (test code = 33910-7) [facility] CenterZinc2020-06-24 20:06:00 Test Item Value Reference Interpretation Comments Range Zinc (test code = 39 60- 130 mcg/dL L This te st was ) developed and i ts analytical performance characteristics have been determined by [facility]. It has not been cleared or appr jean-claude by theA. This assay has been validated pursu ant to the CLIA regulations and is used for clinic al purposes. VALENTE (test code = Performing Lab VALENTE) *BEATRIZ [facility], [address] [place] [id number] Jorje Jauregui MD, PhD Lab Interpretation Abnormal (test code = 03969-5) [facility] [id number] 16:12:00 Test Item Value Reference Range Interpretation Comments Case Report (test code Surgical Pathology = 104) Report Case: [id number] Authorizing Provider: Sylvie George MD Collected: 01/17/2020 08:15 AM Ordering Location: [address] Received: 01/17/2020 01:50 PM Service Pathologist: Humaira Mendez MD Specimen: Duodenum, biopsy ADDENDUM (test code = t4gpzKDiUNQgjIBjXbAdDU 3381) WjZJVqk4mqIMYgaSZjInUv MzNcZnRuYmpcdWMxXGRlZm Qst7qho259pCTda3mvSORz XkR3dVIfEFEbnCOpH198SH PqJWbzc6ueg8ByYCWgbWMh f0E3LMFDnioqhWl2kRehS3 3mv3N6MzfjK6udWSXdRQKp T1VxGI4jZCPqFcf3EVH0RD P6LZWwWXCuC4NpZB8zCXRf qRInHAy0e6ayzTxhLCZzIU D9m4pbFWbieaOnKM0kjp1f hXe1z4mfcqFzHKMuWHObpL YZTSSgV7BwjAcfSo2wiMs8 qEdtEbxxWON8Dan5RJ0vuc 88iwv2lRhwDGTusbwkMyG9 KHjsBDBpdeziWWc5BKrcIJ EniIQ9CNClwZSwI2WbOMBq KM0micn6NHD3NJytWRRkQs S2VXRqlUMvCIFgeRedYBzy h540YIG0LkNtPB6bU3Ewt3 E7bU1iqUMmYECokINsBsXb DILifq9zyIOsVRkax3NlUM I5nyA1tSYvaQXqOXPsPB14 Drhgp4OhMcfaQNU5DPEsaa Uax2Dwq8ojTzLbauYmR8ky V4PnDDHcGVDnQZMtGbFban Mye9Zoi9JgsDLltYc1c2dh RXUiIGVxpMvmf9pzAXA8KV IqM8U9qRLfi6ouTCjyKVHp rZQ1fjH2HGQlfLZaV7OzlY 1nFEHzEQ8jgug3c7ktFDJ3 RKveROAwHkE0zyF9IXIrgY RpPRQzvOyvKMmqn919OKW6 HuUfLCIil6JzH0UmqWkvR5 6giYwsM10rRLVcwAkqxS5a cMygiF1yZcOkNwXzUZypJN JkXHBsYWluXGYxXGZzMjBc bGFuZzEwMzNcaGljaFxmMV hgMgLpOXFgRVorO2wjSvLg PlSlPOGAHQaJPLVKNJ5OFO 8OZHaFJXwWT3YQNDTUGjVF RVBPUlQgVEhFIEZJTkRJTk dTIElOIFRIRSBERUVQRVIg HTELASmBHJ7KBXTMRJDYCC 8MK8blCS5LXKoYMbOoFHaV MOSXIzMDMXOHOEmZX3BQGo pccGFyXHFsXHBsYWluXGYw UARfIeZagOkcrE2kQnFqZd FyRGpuCM0hPZJhD9qmyJMq SBDvOWQsF6ixSiAlrJ3lzH xmMVxmczIwXHBhciAgRFVP SIRAUP2aLGNBCY7ZL48NAS MgQklPUFNZOlxwYXIgICAt ZLFCKSAIAPJvMtXYA3WTWp FNJgNZDYFjXMMDSA6OXMCP I6VDIDPjRUWPJ3kLV3GVKv XyL9HnPI1FGZUIKCRDU2MF Fe3RZRTEIMnpEUPvLWEeHU 9RXUFFDCFYBsEHWC9NVVEZ TElBQyBESVNFQVNFIFNFRU 5ccGFyICAgLSBOTyBHUkFO VUxPTUFTLCBEWVNQTEFTSU QkV6CrCFXUPVtBGU4OMXUU RUVOXHBhcn0= DIAGNOSIS (test code = r4olbVMbNGGfy9toDVRvdT 3220) FuZzEwMzNcZnRuYmpcdWMx PIoqzrVuYDifq5FcQ8PyYy AwMFxhbnNpXGRlZmxhbmcx MMDkTXP2vkOoITTjWGjyXY UeJWnaVc0rcIEjbYswAtIh AUZga6woweVFzzvhtDs1y7 omWJNeYmY3hIVjRBhwB3ad vhPofHSuKLXlVQg8eR23LS LkrO5siFShIUdbsxOmIxK1 ZHtzMYMhUrI1RGUwvOOeNQ VaW5tgMCGqUPsnCWSyRTrq nGInJIE6qQcuz7Q2oEJxdX HicAwnJoDeKnJzONTFw8Av ATh6vDtnX3HfKAIaToY1hH QgUGFyYWdyYXBoIEZvbnQ7 mE08KIzleqM4lWOmq6Qvf5 5rj418oR8mcOFyEMX0KDTw WMLxxWEqWADhECO6LZPhaB SfQ0g6QbKhkMGhD0G1UmAm nUXgG4H3NoVdgLDpK6J2Zn TxxEYzOHKimWNdWl0xwZCt bFRgry3ntd21JDP4s5UnhH soSWX7ZZT1HmMjLp6clJNg MBAcQF2zLxDjbKHzDJDstc 70fQskJFwtcmIgaZ0qGfZj GCFzbIIdWNSxKS7hgHPfAX MusK1gycewPOEhVgUaqywt ZMAduBxdojMuRs6tvIdwBQ X5OGcwV7fdcG1rDaR2LRgf T5wkuT5zDQa6WJqlnFJ5PU DxcD9wAQ3jkkili2upTeFe DK2elchon9xcMeRuJM1zgs u6f8pwEjJoXP9ocivcd5we NzIwXGhlYWRlcnkwXGZvb3 NfacljUYAio7AhH8WbbAqq R34adBtzH04zWPVwpPqdeW 9piWcfoQ9yLoJiVgTnEYzl bFxwbGFpblxmMVxmczIwXG qeezxtENVpGMxlA1tqCeJl BXKzqGpaEUnnk6TzTTMeXV HfYwSjDTBAENYEQU7cNZWR RU7JC24ZLMLnIswKFEDSGc jpCIBpHYXyW0QTGLFOXIAV LSunSwOQZ01USjAVVJ9ZMY BZZTaPUTTDH9TXYC9YO57I TYAQTQCGNBlBL0YUMAPdGk 0IDC2SWAQfIUEZRAESSNLA UGngBTOgkLSgTHXkjv29MF Q4ScDtm0Y9SPZ7ZTZgQZCx r3gkYARibYCsGbRgWjCrQa WfFclbtRVnDSYeFoMzs9az h970rIYyy7maBGUwBbW6oJ UaLVHqdGUrF533INFkOLzs x4xhb5LnBTKbmZPfs7L2GG ZQurdxnRy0bNjgC77ei2I0 RfdlT6bwZDHzZFSnJ0WyWA 7fXODaZar6LXC5BWD9CLFm JWReB0ZzGF2iDCKcpTGbMU f3p8ggaIhzHWKhFJA0x8kj XSffxyEbDG0gmm4jcUv1l6 xjczEgRGVmYXVsdCBQYXJh Y7ZcrVmiZk0lzKg6pIfyYy qwOWE0Gwd9XV4lsp98lls4 yAjmWVFptzbcKkV2SXwvSL GuqwvsKWi3OLoxTQEbhIW6 AIJynCPoX8WfLQTuGN5exk p9ZJY2JNkaZTTaKeJ1CIYh rEXsUKSntDqfYJzsk792GY C8IbBsHS2uY4Nar8J6wV6i aXRcZGVmdGFiNzIwXGZvcm 4lqCLsOMrip3OvCGO2ncF1 xHYinAZgZLByWuF5DVfuKZ 0isw23BJFaHDR0tu5eqKRz nWovdbMcoTJuTNvkW9RzEO Nsa972KCXqD2QxOMAlj1R1 lqXjXpRuRWWmiGZ7mjM4ZV KdPN3qbgfvv7tpPAvmIYnf OZEtklL7ikT6RVMvoZOxW6 VinK3oKNXfRI2wsnzbd7zm KAD5IRvqLKQtWWD0OwQhVY Pfj1Pjvlh2JtEpc6RtdJUc YLzcZ74ia422TZDrpwCuP7 xwbGFpblxwbGFpblxmMFxm nwM1RAFxSJpcfhkcIFHeBE anS8qpAwHgHCLafHehVErc b7KuVMSoFGWlNnFrlOQsOJ XzChn9JIWpbAPsJVLvPwVv M5mhuedqSbOXADTff2tmI9 ijyPOVhVUlF3KtNKtgufSd BRwhNZymTHJ3TDW1Qg01Pl L8TGIpkt70 CPT Code(s) (test code g5xdlDEsLNQbvZTlGrGgSR = 3352) XaSHDwn3edYIEuzZCfAfZk MzNcZnRuYmpcdWMxXGRlZm Qcr5fge817qSUhl8odJDQs HeR0wPCjULLhpLHqU924w8 zxc3tzhqGpxDM4YLTpSFN2 LPzyqxIuifJ0BSmxgXPfYj C4TEgpxbZyLYfwofDuuwEd Sgk3NXYyO166RZH7aQwfb0 awMLV1QSEgCLQzTbHtBs4a lIEpB753NNFzJWZFFWVovO v1OUFewtAdcxMmdFTRc774 F515w3wiLDJitcGxxZkKkm ycc0toY797UJJhuMAcbfZg ZlTxPATlySWnnVK0QZPfGE 0xczhzQjLhGW3eptsoWrCu WX2uxhg8QgPuEG1gzzusRp RsBFrgZDIqnesfJUYzr0Bs pticAN8lE6Mha5A7fX3rqN GdWNWinCMbEbLsJOMfts7e mVScYSqgp7ZbBZP3jxO5aC IedIGgMIKdUZ47Oiqtu1Se VgspJRV2PQLzxgJxz4Tpy6 scEzXbhrGqH4shZ4PpMVLs HCKkFEApErGzfsEfr5Myq1 AjjYZymUy3b7kpUQAuPQAw pOeso6jcICP2EDOkY1K9dV Xwh2owFSkkCUAhpJG2gwhk IIuaOCFxnvF0ygqrPVfuLV XwvEY8zrsrDOazTNUqMyG4 zfspPGnhSUTaMRB8DKuie5 69SBG7CHsuEbgiAEofWSAk bmNvbnRccGduZGVjXHBsYW luXHBsYWluXGYwXGZzMjRc yDyscBhzeY7oLnExPkQvHX yoFQ2hOEYmW3aksRXnSKAp LXHdC9lbMuCiiC0qgZahOB khwiFlLVh5VfU2NCPwxf3= CLINICAL HISTORY (test j5clzOGoSSNwwKIgUjFdYI code = 3356) InBQOcy9jjHGFvuTItWeHs MzNcZnRuYmpcdWMxXGRlZm Wqh7glf949rUTso7ocGQGf RxO1bJOuKAWfpQPhI340UB CaYIgns5jzl3KpCUWziOCp u5U0DCPRteadzGw5xRvnP5 0gb3D2FyrjP0reTABhBIog AZBoFWsibSOsNVF9TJSgEI O7RJmudsVsrjR3GOidyMJt QgZ6FEl0d4emnVwoAEHoNH M1m1srPObqydKfJT8nwi3x aUr5i5hvhgGuYDGxIMZrmN NGKZGaZ1KyyHjkDr3kaVg7 pDujNxzoNOK7Trc1OY6fdr 78ngc1aRrkOHZtkuiwRuD0 KRfkGSKvhsszVSn0MVevBU JnbDcyMFxtYXJncjcyMFxt YXJndDcyMFxtYXJnYjcyMF nsHCGwYZD6SXxve365QNO5 MYzxd9hhv9qwrPMiDse8LC FuRkLrSbooSCyeq4Ttj6nt SRRwar0xISB8qPYirVgxz7 I3pSCaTYBvxRLyjqCvYJPw AoR7KSdkJW3pii32LHWfMT M3hp0tpUIlrDlaccFneVZn RQxnW4VlCOEua154PTFmN8 EuIRUyh1R5bzPbZzSgLIFz vSB1lfK4PHYtKUg7nDQdqp E6unMygIHqB0fgyC43XyEq mNMiB3EjzU43RdTsyPLjP3 RwyR33HiFqwFVgZ4GaeY88 OiNjvADaXYUxbXVxDn7bbV OijZNon7VjvPTgMTccV65t e937SZMjqsCyP1qdaEVbak xwbGFpblxmMFxmczIwXHFs XHBsYWluXGYwXGZzMjBccG hdgT6xZhNxGkVmYVOQgf1r SIN8jiB0VQSqiJXiLPJnOX 4vW67ghUgmZoerxKN6FPWh OKRov7ywtl3rT51eyYPcjG ZwMSWsEKJdutBzvP9nbV4y LFDfFWhwt2JnopvgJO4jvW lhXHBhcn0= SPECIMEN SOURCE (test h5cviMAwASOrhUQnNiYxIS code = 3377) DkXUNzq1iyRQQxxTPyGeXq MzNcZnRuYmpcdWMxXGRlZm Moc7wfi407iPXhx0bsKRMe IpS5sRGxWNHzsFRjG623k5 ftu9ifxvQhqCP9KQJaBEC3 QFzczfUtldF9UPxwpDQjDq S0OEyglbIjFNzduwHqdgKn Gbu2CRZjA168TTO3sVpry7 omRVT8AFEhSVXgEbEpQt9j gTQzE336QCPzFCCZPXRugK d3DBXtlyGusiFssQGJi865 E361v1pgPRNwtwFojDcAdq itz1qjY000STPvcZXuqqNg GpVrGOVspGDabII2IFBdYQ 2cmsspEgUqVO7molnpVoDn WZ9rwvs7KzTsLC1lzdhbVf DpLIufEYXifhqwYGOll2Dl wqqfCT7pU1Lfz6R2lF3lnG VmMVVxzGImHxPgKKZnzq6o mHNpEKghw8SlHJQ6ulW5bN BjpOJnKYLoNH66Eanfr6Hd MbtmLPF5ZXVguoWco8Rlz0 gaPoEbiuTsD8wnO3BtVXDd ALJcSVIaGwEhbvXte9Bne4 SseDWxsWh2c4jzTOBjTQPh kBuqz0wdSRL1QQGcQ7O4mL Dwq5atXZyhZUEdaTH5xdoq CRybCQLnixY5ruyxXXwnKJ RfoMP7nbknONmcCVHyVqX2 ahqwCSlgXINxFGO2COkhf4 74YVR3LKrjHqneZKuzSGAn bmNvbnRccGduZGVjXHBsYW luXHBsYWluXGYwXGZzMjRc gUvrbEyjdT4kUxClNxBgER ocYP5mIJAoO6aepABpWSDm LPUsC5njIrAuuL5jrOkvGH qcrcEsCRKyPEB1d3HwtvCj MmOycU8ev2nhdOOahR== GROSS DESCRIPTION (test p7ujnQEnELQspEOvGnZoQI code = 3366) EcEBHwp7yzCEWfqXHkMzAy MzNcZnRuYmpcdWMxXGRlZm Ecx3vwc626yDMwg3mnLHQx IlQ4xNUiTJAppYYrT973PT MwYFbmb8lzl0DuZPNcwLZn e2Q6GTHXujexyUw4eSplC3 6jp1S5FhthC6boPWZbIGtb FYLcWGomjBOrDHT5CNYmKT H4BSqtazEpfiQ3OLgbgKGh TsW9RGe7a4oihYcuWTOeLT K6k9rsOIrnxnFjWO4tcb6f dQm6t3dleaVtKLIhRFGesD WIWLRqV2WaeHebPy8yeKq7 pEuuMsygGCE8Rga1HM9wbn 67kll3xQikHGBzipccKyA6 TTvzRQJrottmIVa1JKxqIZ JnbDcyMFxtYXJncjcyMFxt YXJndDcyMFxtYXJnYjcyMF vgRIHfYWK5IHnxt575PNH6 AQyqr6udv0wmrQSdUku3YI RfIjCnFputIGbmn9Hwy4na LHAtjc2rYTV0kIQrwGgak4 I7dCPzFBNayDQuktVgTBGf JpI7FOhoEU2hlc66NAXfGV A0fp4yiTMcdLurezDysSIi UMhkM6ToHTSna207OJRmN1 CkFRSej9G1siUvWgDhLGYh lZT3vqV4PEDnZAs0vWZnoz Y3jcEznYBqI7gfhY00CrSi nKWiF0ElaF36EzEmtFFzN4 QneN09PaGmfSTsV5WacY21 XsLfrBHrLDPmzCZrJt1nsI WhfAZpj2SwfDAxGTjiK54y d153MEQswsSmL2pikOKojc xwbGFpblxmMFxmczIwXHFs XHBsYWluXGYwXGZzMjBccG wiqD1wUbEaAdFwOLXIHoIX zOPbx7HuD4xcRK9tdZIymc LfABl7XOTvjM2zNg4xiBRe mU6kRYBgOLlkUJTzQNWwLj GweLDyOEmnNNQ1yAPtCGYt UYLgICBbFO71O5FpkiKoJA ssYVSiKZAfeP8xQR29uFIq ciBhbmQgIlxwbGFpblxmMF osreApNAW3g2NmatRaSbCn muSpZ71pi7gdlUVsi0Ocr4 0rGUNeob2gwH3qIZvnnVDo yliuMLlcrwOzQG58M73nIC vqU159ANWyOFohdJIsoext MFxmczIwICBwaWVjZXMgb2 KwjNoas6MaYZ2fDOD8yotp ZyAwLjMgeCAwLjIgeCAwLj SqN96dADmdvQAfdphwWEpv uqXvGPDhMJLvhZLfrT9wzx EfsbXxoOSvvEI5MFTxXD38 dXEkhHkwZz3pzE97nL4jZE YfrMMpDQQvn42mhP5eILZb IWFuLJC6QFHnmSoruV6aFt IlHjObJELYWH8jXLvVK6Uf XHBhcn0= MICROSCOPIC DESCRIPTION b1ctiSDjHIZjcVJiTiPmSO (test code = 3371) ObCZWcl8ucAINluGWaRuZv MzNcZnRuYmpcdWMxXGRlZm Rmf7ute054kLHgb7lpSMLo RxS2vEZrIEHmgXQiE168g4 njw5rylvRmnTM7XSKePVJ4 KGhsfyArfkM5KFvrxPIoGl I3LCulacGvVExclkIplmUj Zup8OUTmU249ATT7pBvzv3 yeDSM2JWVyJEOwYnNmGq4i xOZkL576MVPoPVDQEWHsoJ z2RZCcnwZyykZsxRNCq802 V401w3ypYFXwuvNgpOaHjt huo2qeX102PUMhjQYvpnVy AlBbUBIjdRMeeBV5UOMhAA 7xeoybPqBdWG4scmghLaLy MP5aqia9RmCmPD1kgfgpWv GxQAewXEErkykhEZIpj7Eh zrflQB1cJ6Atc3A5nG6rgX ZfCFDbrVExTfBeLGFkve9g kDKbAKrjr2SzPNG9bfG8bX XihJPpZBXuVR19Hvdvn7Vo ZsxrGBB9LEXspcJre8Jgl1 uuHeLqpuYjY9hoM9YcDNFg GSUkNBIrPzXpcuNxp7Dsi5 VzaNAorOp2n0ayWOQfYHJh cKprh5xgEMJ8XZQaF6H6dR Ovd8prRZlySCVgpPK5xhbb PZonDJIcwhN7mcmxMVffIO InvER4vimjQPzdVPIcNwG3 gaqaNAfxDINbZHD3XMjqo4 56RGR7CGkzFcmvHFuwBLYh bmNvbnRccGduZGVjXHBsYW luXHBsYWluXGYwXGZzMjRc rLnfyGyelY9xKeHuLlYxOZ zkUY1yRCBrO5npyFUpWOLc WJHpO4inStSusN2nmCzfSK josaIrPZYTHfFNHe8UQAvs YXJ9 [facility] CenterTISSUE [id number] 16:12:00Surgical Pathology Report Case: [id number] Authorizing Provider: Sylvie George MD Collected: 01/17/2020 08:15 AM Ordering Location: [address] Received: 01/17/2020 01:50 PM Service Pathologist: [...] FOVEOLAR METAPLASIA Signing Pathologist Direct Phone Line: [phone] signed by Humaira Mendez MD on 01/18/2020 at 3:50 [id number]: upper endoscopy, biopsy and colonoscopy Pre and postop diagnosis: anemiaA. Duodenum; biopsyA. The specimen is received in formalin labeled with the patient's name, accession number and "duodenum" and consists of one garduno-pink mucosal-covered pieces of tissue measuring 0.3 x 0.2 x 0.1cm. The specimen is submitted entirely following filtration in a cassette A1. HS/plPERFORMEDBlood gas, [id number] 16:03:00 Test Item Value Reference Range Interpretation [...] % Lab Interpretation (test code = Abnormal 05546-4) [facility] CenterBLOOD GAS, [id number] 16:03:00 Test Item Value Reference Range Interpretation [...] (BEAKER) (test code = 1819) 28.0 % [id number] 15:05:00 Test Item Value Reference Range Interpretation Comments Ceruloplasmin (test code 21 mg/dL 18-53 = [id number]) VALENTE (test code = VALNETE) Performing Lab *BEATRIZ [facility], [address] [place] [address] Jorje Juaregui MD, PhD [facility] CenterCarbohydrate antigen 19-9 (CA 19-9)2020-01-19 12:51:00 Test Item Value Reference Range Interpretation Comments CA 19-9 32 U/mL <34 This test was (test code = performed using the 11751-5) Siemens Chemiluminescen t method.Values o btained from different assay methods cannot be used interchangeably .CA19-9 levels, regardl ess of value, should n ot be interpreted as absoluteevidenc e of the presence or abs ence of disease. VALENTE (test Performing Lab code = VALENTE) EZ [facility] [address] [place] [address] I Shashank ADRIAN, PhD, AMINA [facility] CenterPROTHROMBIN TIME/[id number] 11:28:00 Test Item Value Reference Range Interpretation [...] patients wiht mechanical heart valves.MM, U/S, BREAST, [id number] 09:52:00Referring: Dr. Rowdy Zhang for exam:->liver transplant [...] Correlation with mammography isrecommended. Signed: Jorge Brooks MDRepcox branson Verified Date/Time: 01/19/2020 09:52:28 Reading Location:[address] Mammo Reading Room US breast [id number] 09:52:00Interface, External Ris In - 01/19/2020 9:54 [...] MDReport Verified Date/Time: 01/19/2020 09:52:28 Reading Location: [address] Mammo Reading [facility] WITHOUT [id number] 08:09:00Referring: Dr. Reno SweattAnesthesia:->NonePlease specify abdominal organs:->AdrenalFINAL [...] Crocker Verified Date/Time: 01/19/2020 08:09:04 Reading Location: [facility] Diagnostic Imaging Reading Room [place] [address] [address] abdomen without IV contrast 2020-01-19 08:09:00Interface, [...] left-sided pleural effusion concerning for pneumonia. Signed:John Corcker MDReport Verified Date/Time: 01/19/2020 08:09:04 Reading Location: [facility] Diagnostic Imaging Reading Room - [place] [address] Electronically signed by: JOHN CROCKER MD on 0 01/19/2020 08:09 [facility] CenterCALCIUM, [id number] 07:59:00 Test Item Value Reference Range Interpretation [...] To Exercise midodrineConfirmed by fellow Bc Chávez ([id number]) on 01/18/2020 9:20:19 AMConfirmed by Shaq GARCIA MICHAEL([id number]) on 01/19/2020 7:03:55 [facility] CenterCOMPREHENSIVE METABOLIC PANEL 2020-01-19 05:21:00 Test [...] S NOT APPLICABLE FOR DIALYSIS PATIEN TS. [employer] ID - LASpecimen moderately [id number] 05:04:00 Test Item Value Reference Range Interpretation Comments PHOSPHORUS (BEAKER) (test code = 3.3 mg/dL 2.3-4.7 604) [employer] ID - [id number] 05:04:00 Test Item Value Reference Range Interpretation Comments MAGNESIUM (BEAKER) (test code = 2.0 mg/dL 1.6-2.6 627) [employer] ID - LAHEPATIC FUNCTION [id number] 05:04:00 Test Item Value Reference Range Interpretation [...] (test code = 10 U/L 6-55 347) [employer] ID - LASpecimen moderately ictericB-TYPE NATRIURETIC FACTOR (BNP) 2020-01-19 04:59:00 Test Item Value Reference Range Interpretation Comments B-TYPE NATRIURETIC PEPTIDE 2455 pg/mL 0-100 H (BEAKER) (test code = 700) [employer] ID - EDWIN BCBC W/PLT COUNT & AUTO [id number] 04:46:00 Test Item Value Reference Range Interpretation [...] (BEAKER) (test code = 2801) U/S, RENAL, [id number] 01:26:00Referring: Dr. Rowdy Zhang for exam:->Re-examine L [...] Sneed MDReport Verified Date/Time: 01/19/202001:26:59 US renal [id number] 01:26:00Interface, External Ris In - 01/19/2020 1:29 [...] Signed: Maira Sneed Verified Date/Time: 01/19/2020 01:26:59 [facility] CenterEosinophil [id number] 22:11:00 Test Item Value Reference Range Interpretation Comments Eosinophil Smear (test Rare EOS =less than No EOS seen A code = 74915-4) 5% WBCs seen are EOS Lab Interpretation (test Abnormal code = 28556-8) [facility] CenterEOSINOPHIL SMEAR, [id number] 22:11:00 Test Item Value Reference Range Interpretation Comments EOSINOPHIL SMEAR, URINE Rare EOS =less than No EOS seen A (BEAKER) (test code = 5% WBCs seen are EOS 1851) SODIUM, RANDOM [id number] 22:04:00 Test Item Value Reference Range Interpretation Comments SODIUM URINE (BEAKER) (test code = < meq/L 243) Reference Range: No NormalsOperator ID - EDWIN BCreatinine, random urine 2020-01-18 22:02:00 Test Item Value Reference Range Interpretation Comments Creatinine, Ur 181.3 mg/dL (test code = 2161-8) VALENTE (test code = Reference Range: No VALENTE) NormalsOperator ID - EDWIN B [facility] CenterProtein, random [id number] 22:02:00 Test Item Value Reference Range Interpretation Comments Protein, Urine (test code 45 mg/dL 0-14 H = 2888-6) VALENTE (test code = VALENTE) [employer] ID - EDWIN B Lab Interpretation (test Abnormal code = 41160-3) [facility] CenterCREATININE, RANDOM [id number] 22:02:00 Test Item Value Reference Range Interpretation Comments CREATININE URINE (BEAKER) (test 181.3 mg/dL code = 375) Reference Range: No NormalsOperator ID - EDWIN BPROTEIN, RANDOM [id number] 22:02:00 Test Item Value Reference Range Interpretation Comments PROTEIN, URINE (BEAKER) (test code = 45 mg/dL 0-14 H 1569) [employer] ID - EDWIN BURINALYSIS W/ [id number] 22:02:00 Test Item Value Reference Range Interpretation [...] (test Urine, Sterile code = 2795) Collection [employer] ID - [auto][employer] ID - techHepatitis B core antibody, [id number] 16:02:00 Test Item Value Reference Range Interpretation Comments Hep B Core Total Ab Nonreactive Nonreactive (test code = 36702-3) VALENTE (test code = VALENTE) [employer] ID - CHARO Downs Lab Interpretation (test Normal code = 86764-7) [facility] CenterHEPATITIS B CORE ANTIBODY, [id number] 16:02:00 Test Item Value Reference Range Interpretation Comments HEPATITIS B CORE TOTAL ANTIBODY Nonreactive Nonreactive (BEAKER) (test code = 497) [employer] ID - CHARO FECG 12 [id number] 14:19:40Interface, External Ris In - 01/18/2020 2:19 PM CDTVentricular Rate 62 BPMAtrial Rate 62 BPMP-R Interval 138 msQRS Duration 86 msQ-T Interval 452 msQTC Calculation(Bazett) 458 msP [place] 59 degreesR [place] 32 degreesT [place] 56 degreesNormal sinus rhythmLow voltage QRSNonspecific ST [id number] JUN 2020 11:05Nonspecific T wave abnormality Nonspecific T wave abnormality, improved inQT has shortenedConfirmed by MD FARHAT, [facility] ([id number]) on 01/18/2020 2:19:38 [facility] Cytomegalovirus antibody, [id number] 13:49:00 Test Item Value Reference Range Interpretation Comments CYTOMEGALOVIRUS, IGG Positive Negative, A (test code = 3429) Equivocal VALENTE (test code = VALENTE) CMV IgG Result Interpretation: </= 0.8 Al Negative 0.9-1.0 Al Equivocal >/=1.1 Al Positive Lab Interpretation (test Abnormal code = 56371-3) [facility] CenterEBV-VCA antibody, [id number] 13:49:00 Test Item Value Reference Range Interpretation Comments GABRIEL CHING VIRAL Positive Negative, A CAPSID ANTIGEN IGG (test Equivocal code = 3415) VALENTE (test code = VALENTE) Gabriel Ching Viral Capsid Antigen IgG Result Interpretation: </= 0.8 Al Negative 0.9-1.0 Al Equivocal >/= 1.1 Al Positive Lab Interpretation (test Abnormal code = 41673-0) [facility] CenterEBV-VCA antibody, [id number] 13:49:00 Test Item Value Reference Range Interpretation Comments GABRIEL CHING VIRAL Negative Negative, CAPSID ANTIGEN IGM (test Equivocal code = 3418) VALENTE (test code = VALENTE) Gabriel Ching Viral Capsid Antigen IgM Result Interpretation: </= 0.8 Al Negative 0.9-1.0 Al Equivocal >/= 1.1 Al Positive Lab Interpretation (test Normal code = 13596-9) [facility] CenterCytomegalovirus antibody, [id number] 13:49:00 Test Item Value Reference Range Interpretation Comments CMV IGM (test code = Negative Negative, 3437) Equivocal VALENTE (test code = VALENTE) CMV IgM Result Interpretation: </= 0.8 Al Negative 0.9-1.0 Al Equivocal >/= 1.1 Al Positive Lab Interpretation (test Normal code = 00941-3) [facility] CenterCYTOMEGALOVIRUS ANTIBODY, [id number] 13:49:00 Test Item Value Reference Range Interpretation Comments CYTOMEGALOVIRUS, IGG (BEAKER) Positive Negative, Equivocal A (test code = 3429) CMV IgG Result Interpretation: </= 0.8 Al Negative 0.9-1.0 Al Equivocal >/=1.1 Al PositiveCYTOMEGALOVIRUS ANTIBODY, [id number] 13:49:00 Test Item Value Reference Range Interpretation Comments CYTOMEGALOVIRUS IGM ANTIBODY Negative Negative, Equivocal (BEAKER) (test code = 3437) CMV IgM Result Interpretation: </= 0.8 Al Negative 0.9-1.0 Al Equivocal >/= 1.1 Al PositiveEBV ANTIBODY, [id number] 13:49:00 Test Item Value Reference Range Interpretation [...] Negative 0.9-1.0 Al Equivocal >/= 1.1 Al [id number] 13:35:00 Test Item Value Reference Range Interpretation Comments T3, Total (test code = 3053-6) 51 ng/dL 48-159 Lab Interpretation (test code = Normal 09669-8) [facility] CenterT32020[facility] 13:35:00 Test Item Value Reference Range Interpretation Comments T3 TOTAL (BEAKER) (test code = 656) 51 ng/dL 48-159 PET/CT, CARDIAC PERF REST AND [id number] 12:45:00Referring: Dr. Rowdy Zhang for exam:->pre op cardiac clearance for liver transplantFINAL REPORT PROCEDURE: MYOCARDIAL PERFUSION PET IMAGING (Rest/Stress)CPT CODE: 10498 INDICATION: Evaluation for liver transplant CARDIOVASCULAR PROFILE:Symptoms: [...] MDReport Verified Date/Time: 01/18/2020 12:45:40 Reading Location: [address] Reading Room [place] Myocardial Perfusion Pet/CT (Rest & Stress)2020-01-18 12:45:00Interface, External Ris In - 01/18/2020 12:47 PM CDTFINAL REPORT PROCEDURE: MYOCARDIAL PERFUSION PET IMAGING (Rest/Stress)CPT CODE: 91725 INDICATION: Evaluation for liver transplant CARDIOVASCULAR PROFILE:Symptoms: [...] MDReport Verified Date/Time: 01/18/2020 12:45:40 Reading Location: [address] Reading Room [facility] HEPATIC FUNCTION [id number] 10:29:00 Test Item Value Reference Range Interpretation [...] (test code = 9 U/L 6-55 347) Supervisor [employer] ID - MUNCIE FSpecimen moderately ictericCBC W/PLT COUNT & AUTO [id number] 08:43:00 Test Item Value Reference Range Interpretation [...] CONCENTRATION Decreased (CELLAVISION)(BEAKER) (test code = 3438) Supervisor [employer] ID - [id number] ID - Lizett OverholtUser comments: Slide comments: [id number] 07:29:00 Test Item Value Reference Range Interpretation Comments MAGNESIUM (BEAKER) (test code = 2.1 mg/dL 1.6-2.6 627) Supervisor [employer] ID - CHARO FBASIC METABOLIC [id number] 07:29:00 Test Item Value Reference Range Interpretation [...] S NOT APPLICABLE FOR DIALYSIS PATIEN TS. Supervisor [employer] ID - CHARO FSpecimen moderately ictericAnti-Nuclear Antibody (REILLY) 2020-01-17 10:54:00 Test Item Value Reference Range Interpretation Comments REILLY (test code = 52658-5) Negative Negative VALENTE (test code = VALENTE) Test performed by IFA method.Test performed by IFA method. Lab Interpretation (test Normal code = 52717-8) [facility] CenterANTI-NUCLEAR ANTIBODY (REILLY)2020-01-17 10:54:00 Test Item Value Reference Range Interpretation Comments ANTI-NUCLEAR ANTIBODY (REILLY) (BEAKER) Negative Negative (test code = 418) Test performed by IFA method.Test performed by IFA method.[id number] 10:49:00 Test Item Value Reference Range Interpretation Comments RPR (test code = 03149-8) Nonreactive Nonreactive Lab Interpretation (test code = Normal 79489-6) [facility] CenterRPR2020-06-22 10:49:00 Test Item Value Reference Range Interpretation Comments RPR SCREEN (BEAKER) (test code = Nonreactive Nonreactive 420) CBC W/PLT COUNT & AUTO [id number] 10:00:00 Test Item Value Reference Range Interpretation [...] CONCENTRATION Decreased (CELLAVISION)(BEAKER) (test code = 3438) Supervisor [employer] ID - [id number] ID - Alem Mars comments: Slide comments:BASIC METABOLIC [id number] 05:16:00 Test Item Value Reference Range Interpretation [...] S NOT APPLICABLE FOR DIALYSIS PATIEN TS. Supervisor [employer] ID - PIAYA LSpecimen moderately [id number] 05:15:00 Test Item Value Reference Range Interpretation Comments MAGNESIUM (BEAKER) (test code = 2.1 mg/dL 1.6-2.6 627) Supervisor [employer] ID - PIAYA LPROTHROMBIN TIME/[id number] 04:50:00 Test Item Value Reference Range Interpretation [...] patients wiht mechanical heart valves.Vitamin B12 and [id number] 16:46:00 Test Item Value Reference Range Interpretation Comments Vitamin B12 (test code = 1107 pg/mL 213-816 H 2132-9) Folate (test code = 2284-8) 3.40 ng/mL >=7.00 L VALENTE (test code = VALENTE) Supervisor [employer] ID - NTP Lab Interpretation (test Abnormal code = 14866-5) [facility] CenterVITAMIN B12 AND [id number] 16:46:00 Test Item Value Reference Range Interpretation Comments VITAMIN B12 (BEAKER) (test code = 1107 pg/mL 213-816 H 774) FOLATE (BEAKER) (test code = 362) 3.40 ng/mL >=7.00 L Supervisor [employer] ID - NTPLactate dehydrogenase (LDH)2020-01-16 12:57:00 Test Item Value Reference Range Interpretation Comments LDH (test code = 2532-0) 250 U/L 125-220 H VALENTE (test code = VALENTE) Supervisor [employer] ID - TUAN C Lab Interpretation (test Abnormal code = 29349-0) [facility] CenterLACTATE DEHYDROGENASE (LDH)2020-01-16 12:57:00 Test Item Value Reference Range Interpretation Comments LACTATE DEHYDROGENASE (BEAKER) (test 250 U/L 125-220 H code = 635) Supervisor [employer] ID - TUAN CRETICULOCYTE [id number] 12:44:00 Test Item Value Reference Range Interpretation Comments RETICULOCYTE COUNT PCT (BEAKER) (test 5.0 % 0.5-1.7 H code = 575) Supervisor [employer] ID - 6000HIV-1 Antigen with HIV-1/2 [id number] 12:17:00 Test Item Value Reference Range Interpretation Comments HIV-1 Antigen with HIV Nonreactive Nonreactive 1&2 Antibody (test code = 99110-0) VALENTE (test code = VALENTE) Supervisor [employer] ID - TUAN C Lab Interpretation (test Normal code = 35673-6) [facility] CenterHIV[facility] ANTIGEN WITH HIV-1/2 [id number] 12:17:00 Test Item Value Reference Range Interpretation Comments HIV-1 ANTIGEN WITH HIV 1\\T\\2 Nonreactive Nonreactive ANTIBODY (2) (BEAKER) (test code = 2586) Supervisor [employer] ID - TUAN [id number] 12:02:00 Test Item Value Reference Range Interpretation Comments Haptoglobin (test code = <8 14-258 L 4542-7) VALENTE (test code = VALENTE) Supervisor [employer] ID - TUAN C Lab Interpretation (test Abnormal code = 12211-1) [facility] CenterHAPTOGLOBIN2020-06-21 12:02:00 Test Item Value Reference Range Interpretation Comments HAPTOGLOBIN (BEREBECCA) (test code = < mg/dL 14-258 L 366) Supervisor [employer] ID - TUAN CHemoglobin [id number] 09:01:00 Test Item Value Reference Range Interpretation Comments Hemoglobin A1C (test code = 4548-4) <3.8 4.3-6.1 L Lab Interpretation (test code = Abnormal 73647-2) [facility] CenterHEMOGLOBIN [id number] 09:01:00 Test Item Value Reference Range Interpretation Comments HEMOGLOBIN A1C (BEAKER) (test code = < % 4.3-6.1 L 368) U/S, ABDOMINAL, WITH [id number] 07:32:00Referring: Dr. Rowdy Mccarthy Reason for exam:->liver [...] MDReport Verified Date/Time: 01/16/2020 07:32:01 Reading Location: [address] Transitional Reading Room US abdominal with asgdnbc7567-90-11 07:32:00Interface, External Ris In - 01/16/2020 7:34 [...] MDReport Verified Date/Time: 01/16/2020 07:32:01 Reading Location: [address] Transitional Reading [facility] [id number] 04:41:00 Test Item Value Reference Range Interpretation [...] S NOT APPLICABLE FOR DIALYSIS PATIEN TS. Supervisor [employer] ID - PIAYA LSpecimen moderately bkfeidcOXTRILLHW9631-04-12 04:38:00 Test Item Value Reference Range Interpretation Comments MAGNESIUM (BEAKER) (test code = 2.3 mg/dL 1.6-2.6 627) Supervisor [employer] ID - PIDORIAN LHEPATIC FUNCTION [id number] 04:38:00 Test Item Value Reference Range Interpretation [...] (test code = 9 U/L 6-55 347) Supervisor [employer] ID - PIAYA LSpecimen moderately ictericPROTHROMBIN TIME/[id number] 04:36:00 Test Item Value Reference Range Interpretation [...] mechanical heart valves.CBC W/PLT COUNT & AUTO [id number] 04:29:00 Test Item Value Reference Range Interpretation [...] (BEAKER) (test code = 2801) Carotid doppler lntpyabby7000-21-20 00:34:03Ejection [facility] ECHO HEARTLAB MKCKESSON CPACSRight Impression1. The internal, [...] AM CDTPV LAB - Carotid Duplex Study [facility] Patient Name CICI CALDERON Date of Study 01/15/2020 ALYSE Age 64 Visit Number [id number] Gender Female Accession Number [id number] Date of 1955 Referring [facility] Room Number 1515 Physician Land Degradation Analyst Herbert Lechuga Interpreting Chelsea Resendez RVT Physician [...] + + + - Additional Measurements:ICAPSV/CCAPSV 0.96.ICAEDV/CCAEDV 1.52.[facility] CenterBlood typing, automated - - at seperate draw time from initial type and [id number] 20:34:00 Test Item Value Reference Range Interpretation Comments ABO/RH AUTOMATED (CLAUDIAREBECCA) (test A POSITIVE code = 2260) [facility] CenterT42020-06-20 18:08:00 Test Item Value Reference Range Interpretation Comments T4, Total (test code = 4.3 ug/dL 4.9-11.7 L 3026-2) VALENTE (test code = VALENTE) Supervisor [employer] ID - NTP Lab Interpretation (test Abnormal code = 77783-3) [facility]42020-06-20 18:08:00 Test Item Value Reference Range Interpretation Comments T4 TOTAL (BEAKER) (test code = 895) 4.3 ug/dL 4.9-11.7 L Supervisor [employer] ID - ALBJvbhjfbc1909-02-87 18:07:00 Test Item Value Reference Range Interpretation Comments Ferritin (test code = 489.86 ng/mL 5-275 H 2276-4) VALENTE (test code = VALENTE) Supervisor [employer] ID - NTP Lab Interpretation (test Abnormal code = 84454-8) [facility] CenterFERRITIN2020-06-20 18:07:00 Test Item Value Reference Range Interpretation Comments FERRITIN (BEAKER) (test code = 489.86 ng/mL 5.00-275.00 H 361) Supervisor [employer] ID - NTPCT, CHEST, WITHOUT [id number] 17:57:00Referring: Dr. Rowdy LopestFINAL REPORT CT of [...] [place] Verified Date/Time: 01/15/2020 17:57:54 Reading Location: [address] Consult Reading Room CT chest without IV cocykrnf5340-11-43 17:57:00Interface, External Ris In - 01/15/2020 6:00 [...] [place] Verified Date/Time: 01/15/2020 17:57:54 Reading Location: [facility] C0X Ortho Consult Reading Room [facility] 2020-01-15 17:27:00 Test Item Value Reference Range Interpretation Comments TSH (test code = 06513-5) 5.549 0.350- 4.940 uIU/mL H VALENTE (test code = VALENTE) Supervisor [employer] ID - DB Lab Interpretation (test Abnormal code = 26406-4) [facility] CenterVitamin D, 19-Isythky4776-78-20 17:27:00 Test Item Value Reference Range Interpretation Comments Vitamin D 25-Hydroxy 6.2 ng/mL 6.6-49.9 L (test code = 2764) VALENTE (test code = VALENTE) Effective 05/07/2017: Reference Range ChangeNew: 6.6-49.9 ng/mL Previous: 13.0-47.8 ng/mL Recommended Vitamin D Target Range: 30.0-40.0 ng/mLOperator ID - DB Lab Interpretation (test Abnormal code = 28415-6) [facility] CenterAlpha fetoprotein (AFP), tumor vnrydw7608-87-75 17:27:00 Test Item Value Reference Range Interpretation Comments Alpha-Fetoprotein (test code <2.0 <10.0 ng/mL = 1834-1) VALENTE (test code = VALENTE) Supervisor [employer] ID - DB Lab Interpretation (test Normal code = 79606-8) [facility] CenterVITAMIN D, 34-[id number] 17:27:00 Test Item Value Reference Range Interpretation Comments VITAMIN D 25-OH (BEAKER) (test code 6.2 ng/mL 6.6-49.9 L = 2764) Effective 05/07/2017: Reference Range ChangeNew: 6.6-49.9 ng/mL Previous: 13.0-47.8 ng/mLRecommended Vitamin D Target Range: 30.0-40.0 ng/mLOperator ID - [id number] 17:27:00 Test Item Value Reference Range Interpretation Comments THYROID STIMULATING HORMONE 5.549 uIU/mL 0.350-4.940 H (BEAKER) (test code = 772) Supervisor [employer] ID - DBALPHA FETOPROTEIN (AFP), TUMOR [id number] 17:27:00 Test Item Value Reference Range Interpretation Comments ALPHA-FETOPROTEIN (BEAKER) (test code < ng/mL <10.0 = 1094) Supervisor [employer] ID - DBHepatitis B surface [id number] 17:25:00 Test Item Value Reference Range Interpretation Comments HBsAg Screen (test code Nonreactive Nonreactive = 5195-3) VALENTE (test code = VALENTE) Specimen is considered negative for HBsAg. Lab Interpretation (test Normal code = 13854-4) [facility] CenterHepatitis B surface jectkcop9886-03-94 17:25:00 Test Item Value Reference Range Interpretation Comments Hep B S Ab (test code = 25.0 <8.0 mIU/mL H 97610-5) VALENTE (test code = VALENTE) Supervisor [employer] ID - DB Lab Interpretation (test Abnormal code = 99500-4) [facility] CenterHepatitis C pmafouvy0147-93-77 17:25:00 Test Item Value Reference Range Interpretation Comments Hepatitis C Ab (test code = Nonreactive Nonreactive 46253-5) VALENTE (test code = VALENTE) Supervisor [employer] ID - DB Lab Interpretation (test Normal code = 28144-2) [facility] CenterHEPATITIS B SURFACE [id number] 17:25:00 Test Item Value Reference Range Interpretation Comments HEPATITIS B SURFACE ANTIGEN (2) Nonreactive Nonreactive (BEAKER) (test code = 2585) Specimen is considered negative for HBsAg.HEPATITIS B SURFACE [id number] 17:25:00 Test Item Value Reference Range Interpretation Comments HEPATITIS B SURFACE ANTIBODY 25.0 mIU/mL <8.0 H (BEAKER) (test code = 647) Supervisor [employer] ID - DBHEPATITIS C [id number] 17:25:00 Test Item Value Reference Range Interpretation Comments HEPATITIS C ANTIBODY (BEAKER) Nonreactive Nonreactive (test code = 367) Supervisor [employer] ID - DBCarcinoembryonic Antigen (CEA)2020-01-15 17:23:00 Test Item Value Reference Range Interpretation Comments CEA, SERUM (test code = 7.9 ng/mL 0-5 H 9-6) VALENTE (test code = VALENTE) Supervisor [employer] ID - DB Lab Interpretation (test Abnormal code = 04263-7) [facility] CenterHe[facility] B core antibody, [id number] 17:23:00 Test Item Value Reference Range Interpretation Comments Hep B C IgM (test code = Nonreactive Nonreactive 48894-9) VALENTE (test code = VALENTE) Supervisor [employer] ID - DB Lab Interpretation (test Normal code = 53451-3) [facility] CenterHepatitis A antibody, [id number] 17:23:00 Test Item Value Reference Range Interpretation Comments Hep A IgM (test code = Nonreactive Nonreactive 14510-6) VALENTE (test code = VALENTE) Supervisor [employer] ID - DB Lab Interpretation (test Normal code = 31848-5) [facility] CenterCARCINOEMBRYONIC ANTIGEN (CEA)2020-01-15 17:23:00 Test Item Value Reference Range Interpretation Comments CARCINOEMBRYONIC ANTIGEN (BEAKER) 7.9 ng/mL 0.0-5.0 H (test code = 685) Supervisor [employer] ID - DBHEPATITIS B CORE ANTIBODY, [id number] 17:23:00 Test Item Value Reference Range Interpretation Comments HEPATITIS B CORE IGM ANTIBODY Nonreactive Nonreactive (BEAKER) (test code = 645) Supervisor [employer] ID - DBHEPATITIS A ANTIBODY, [id number] 17:23:00 Test Item Value Reference Range Interpretation Comments HEPATITIS A IGM ANTIBODY (BEAKER) Nonreactive Nonreactive (test code = 498) Supervisor [employer] ID - DBRAD, MANDIBLE, MIN 4 [id number] 17:22:00Referring: Dr. Rowdy Zhang for exam:->liver transplant [...] [place] Verified Date/Time: 01/15/2020 17:22:12 Reading Location: [address] Transitional Reading Room XR mandible min 4 xszlv7226-06-97 17:22:00Interface, External Ris In - 01/15/2020 5:24 [...] [place] Verified Date/Time: 01/15/2020 17:22:12 Reading Location: [facility] C0[facility] Transitional Reading [facility], 2 [id number] 17:16:00Referring: Dr. Rowdy Zhnag for exam:->liver transplant evaluation, cirrhosisShould this be [...] [place] Verified Date/Time: 01/15/2020 17:16:49 Reading Location: [address] Transitional Reading Room XR chest 2 [id number] 17:16:00Interface, External Ris In - 01/15/2020 5:19 [...] [place] Verified Date/Time: 01/15/2020 17:16:49 Reading Location: [address] Transitional Reading Room [facility] 2D Echo W/Doppler(CW/PW/Color)2020-01-15 17:15:41[facility] MKCKESSON CPACSInterface, External Ris In - 01/15/2020 5:15 PM C DTTransthoracic Echocardiography Report (TTE) Demographics Patient Name CICI CALDERON Date of Study 01/15/2020 ALYSE Gender Female Visit Number [id number] Race Unknown Room Number 1515 Number Date of 1955 Referring Physician Ren Hernandez MD Age 64 year(s) Land Degradation Analyst Lisa Bautista [facility] Interpreting Jai Arreguin MD Physician Procedure Type [...] CO: 7.05 l/min LVOT CI: 3.67 l/min/m^2[facility] HospitalCOMPREHENSIVE METABOLIC [id number] 17:06:00 Test Item Value Reference Range Interpretation [...] S NOT APPLICABLE FOR DIALYSIS PATIEN TS. Supervisor [employer] ID - NTPSpecimen moderately onvekixJkewogapif8973-82-83 17:03:00 Test Item Value Reference Range Interpretation Comments Fibrinogen (test code = 3255-7) 114 mg/dl 225-434 L Lab Interpretation (test code = Abnormal 30479-7) [facility] CenterFIBRINOGEN2020-06-20 17:03:00 Test Item Value Reference Range Interpretation Comments FIBRINOGEN LEVEL (BEAKER) (test 114 mg/dl 225-434 L code = 658) Tlhhidqjnkz7069-77-97 17:00:00 Test Item Value Reference Range Interpretation Comments Transferrin (test code = 102 mg/dL 174-382 L 3034-6) VALENTE (test code = VALENTE) Supervisor [employer] ID - DBSpecimen moderately icteric Lab Interpretation (test Abnormal code = 14983-5) [facility] CenterIron, TIBC, % sat. (without ferritin)2020-01-15 17:00:00 Test Item Value Reference Range Interpretation Comments Iron (test code = 2498-4) 144.0 ug/dL 40-160 TIBC (test code = 2500-7) 129 ug/dL 250-450 L Iron % Saturation (test code 112 % 20-55 H = 2502-3) VALENTE (test code = VALENTE) Supervisor [employer] ID - DB Lab Interpretation (test Abnormal code = 21608-1) [facility] CenterTRANSFERRIN2020-06-20 17:00:00 Test Item Value Reference Range Interpretation Comments TRANSFERRIN (BEAKER) (test code = 102 mg/dL 174-382 L 541) Supervisor [employer] ID - DBSpecimen moderately ictericIRON, TIBC, % SAT. (WITHOUT FERRITIN) 2020-01-15 17:00:00 Test Item Value Reference Range Interpretation Comments IRON (BEAKER) (test code = 547) 144.0 ug/dL 40.0-160.0 TOTAL IRON BINDING CAPACITY 129 ug/dL 250-450 L (BEAKER) (test code = 769) IRON % SATURATION (2) (BEAKER) 112 % 20-55 H (test code = 2590) Supervisor [employer] ID - OGNzggc-3-qvapnqpmyrg7953-06-20 16:59:00 Test Item Value Reference Range Interpretation Comments A-1 Antitrypsin (test code = 121.20 mg/dL 90-200 1825-9) VALENTE (test code = VALENTE) Supervisor [employer] ID - DB Lab Interpretation (test Normal code = 40554-0) [facility] CenterBILIRUBIN, [id number] 16:59:00 Test Item Value Reference Range Interpretation Comments BILIRUBIN DIRECT 1.6 mg/dL 0.1-0.5 H Specimen sl ightly (BEAKER) (test code = hemoly zed 706) Supervisor [employer] ID - TGGDWGVJ-6-EDGIBEATUXC2533-06-20 16:59:00 Test Item Value Reference Range Interpretation Comments ALPHA-1 ANTITRYPSIN (BEAKER) 121.20 mg/dL 90.00-200.00 (test code = 502) Supervisor [employer] ID - JTAqwnduf4024-42-14 16:58:00 Test Item Value Reference Range Interpretation Comments Ethanol Lvl (test code = <10 <=10 mg/dL 5643-2) VALENTE (test code = VALENTE) Supervisor [employer] ID - DB Lab Interpretation (test Normal code = 51222-4) [facility] CenteraPTT2020-06-20 16:58:00 Test Item Value Reference Range Interpretation Comments PTT (test code = 65438-3) 36.8 22.5- 36.0 seconds H Lab Interpretation (test code = Abnormal 42081-9) [facility] CenterAPTT2020-06-20 16:58:00 Test Item Value Reference Range Interpretation Comments PARTIAL THROMBOPLASTIN TIME 36.8 seconds 22.5-36.0 H (BEAKER) (test code = 760) [id number] 16:58:00 Test Item Value Reference Range Interpretation Comments ETHANOL (BEAKER) (test code = 400) < mg/dL <=10 Supervisor [employer] ID - DBPROTHROMBIN TIME/[id number] 16:57:00 Test Item Value Reference Range Interpretation [...] is2.5-3.5 for patients wiht mechanical heart valves.CALCIUM, [id number] 16:45:00 Test Item Value Reference Range Interpretation Comments CALCIUM IONIZED (BEAKER) (test 1.08 mmol/L 1.12-1.27 L code = 698) PH, BLOOD (BEAKER) (test code = 7.38 1810) CREATININE, RANDOM [id number] 13:46:00 Test Item Value Reference Range Interpretation Comments CREATININE URINE (BEAKER) (test 280.7 mg/dL code = 375) Reference Range: No NormalsOperator ID - NTPSODIUM, RANDOM [id number] 13:46:00 Test Item Value Reference Range Interpretation Comments SODIUM URINE (BEAKER) (test code = < meq/L 243) Reference Range: No NormalsOperator ID - NTPHepatitis panel, [id number] 13:05:00 Test Item Value Reference Range Interpretation Comments Hep A IgM (test code = Nonreactive Nonreactive 78139-2) Hep B C IgM (test code = Nonreactive Nonreactive 55056-2) Hepatitis C Ab (test code = Nonreactive Nonreactive 04732-1) HBsAg Screen (test code = Nonreactive Nonreactive 5195-3) VALENTE (test code = VALENTE) Supervisor [employer] ID - NTP Lab Interpretation (test Normal code = 08884-8) [facility] CenterHEPATITIS PANEL, [id number] 13:05:00 Test Item Value Reference Range Interpretation Comments HEPATITIS A IGM ANTIBODY (BEAKER) Nonreactive Nonreactive (test code = 498) HEPATITIS B CORE IGM ANTIBODY Nonreactive Nonreactive (BEAKER) (test code = 645) HEPATITIS C ANTIBODY (BEAKER) Nonreactive Nonreactive (test code = 367) HEPATITIS B SURFACE ANTIGEN (2) Nonreactive Nonreactive (BEAKER) (test code = 2585) Supervisor [employer] ID - NTPLipid csmvw9852-27-90 11:51:00 Test Item Value Reference Range Interpretation Comments Triglycerides (test 86 mg/dL code = 2571-8) Cholesterol (test code 101 mg/dL = 2093-3) HDL (test code = 12 mg/dL 2085-9) LDL Calculated (test 72 mg/dL code = 06002-9) VALENTE (test code = VALENTE) Triglyceride Reference Range: Low Risk <150 Borderline 150-199 High Risk 200-499 Very High Risk >=500 Cholesterol Reference Range: Low Risk <200 Borderline 200-239 High Risk >240 HDL Cholesterol Reference Range: Low Risk >=60 High Risk <40 LDL Cholesterol Reference Range: Optimal <100 Near Optimal 100-129 Borderline 130-159 High 160-189 Very High >=190 Supervisor [employer] ID - NTPSpecimen moderately icteric [facility] CenterGamma Glutamyl Transferase (GGT)2020-01-15 11:51:00 Test Item Value Reference Range Interpretation Comments GGT (test code = 2324-2) 15 U/L 9-64 VALENTE (test code = VALENTE) Supervisor [employer] ID - NTPSpecimen moderately icteric Lab Interpretation (test Normal code = 80051-0) [facility] CenterUric [id number] 11:51:00 Test Item Value Reference Range Interpretation Comments Uric Acid (test code = 15.7 mg/dL 2.6-7.2 H 3084-1) VALENTE (test code = VALENTE) Supervisor [employer] ID - NTPSpecimen moderately icteric Lab Interpretation (test Abnormal code = 09064-6) [facility] CenterURIC [id number] 11:51:00 Test Item Value Reference Range Interpretation Comments URIC ACID (BEAKER) (test code = 15.7 mg/dL 2.6-7.2 H 773) Supervisor [employer] ID - NTPSpecimen moderately ictericLIPID [id number] 11:51:00 Test Item Value Reference Range Interpretation [...] Borderline 130-159 High 160-189 Very High >=190 Supervisor [employer] ID - NTPSpecimen moderately qmrdxacBGDIOVLKKB6080-73-18 11:51:00 Test Item Value Reference Range Interpretation Comments PHOSPHORUS (BEAKER) (test code = 4.5 mg/dL 2.3-4.7 604) Supervisor [employer] ID - NTPGAMMA GLUTAMYL TRANSFERASE (GGT)2020-01-15 11:51:00 Test Item Value Reference Range Interpretation Comments GAMMA GLUTAMYL TRANSFERASE (BEAKER) 15 U/L 9-64 (test code = 364) Supervisor [employer] ID - NTPSpecimen moderately ictericCBC W/PLT COUNT & AUTO [id number] 11:25:00 Test Item Value Reference Range Interpretation [...] CONCENTRATION Decreased (CELLAVISION)(BEAKER) (test code = 3438) Supervisor [employer] ID - 6000Operator ID - Ana Laura HeMeghanhayley comments: Slide comments: [id number] 10:20:00 Test Item Value Reference Range Interpretation Comments MAGNESIUM (BEAKER) (test code = 2.2 mg/dL 1.6-2.6 627) Supervisor [employer] ID - TROPwbuuwy0839-71-13 08:57:00 Test Item Value Reference Range Interpretation Comments Ammonia (test code = 19 18- 72 mol/L 48392-9) VALENTE (test code = VALENTE) Supervisor [employer] Fab[employer] ID - NTP Lab Interpretation (test Normal code = 18855-3) [facility] CenterAMMONIA2020-06-20 08:57:00 Test Item Value Reference Range Interpretation Comments AMMONIA (BEAKER) (test code = 348) 19 mol/L 18-72 Supervisor [employer] ID - NTPHEPATIC FUNCTION RHRLX6215-67-67 05:21:00 Test Item Value Reference Range Interpretation [...] (test code = 12 U/L 6-55 347) Supervisor [employer] ID - DALTON MSpecimen moderately ictericBASIC METABOLIC [id number] 05:15:00 Test Item Value Reference Range Interpretation [...] S NOT APPLICABLE FOR DIALYSIS PATIEN TS. Supervisor [employer] ID - DALTON MSpecimen moderately ictericPROTHROMBIN TIME/[id number] 04:37:00 Test Item Value Reference Range Interpretation [...] Detected Not Detected, (test code = Negative 49200-1) SARS-COV-2 [facility] PERFORMING LAB (test code = 63648-5) VALENTE (test code = Negative results do [...] of the Act. Fact Sheet for Healthcare Providers:https://www.[employer]Documents/Xper t%20Xpress%20SARS%20CoV- 2/Fact%20Sheets/302-3802 %61DLSZ-VWX-9%20HEALTHCA RE%20PROVIDERS%20FACT%20 SHEET.pdf Fact Sheet for Healthcare Patients:https://www.[employer]/Documents/Xpert %20Xpress%20SARS%20CoV-2 /Fact%20Sheets/3023801% 55CTLR-MAD-3%20PATIENT%2 0FACT%20SHEET.pdf Performing Laboratory:[place] [address], [place] [address] [place], [place] [address]ARS-COV2/RT-PCR ([facility])2020-01-15 01:48:00 Test Item Value Reference Range Interpretation Comments SARS-COV2/RT-PCR (test Not Detected Not Detected, Negative code = 1803821) SARS-COV-[address] [facility] (test code = 4085850) Negative results do not preclude SARS-CoV-2 infection [...] of the Act.Fact Sheet for Healthcare Pro viders:https://www.[employer]/Documents/Xpert%20Xpress%20SARS%20CoV-2/Fact%20Sh eets/302-3802%46IBAJ-EKF-5%20HEALTHCARE%20PROVIDERS%20FACT%20SHEET.pdfFact Sheet for Healthcare Patients:https://www.[employer]/Documents/Xpert%20Xpress%20SARS%20CoV-2/Fact%20Sheets/302-3801%20SARS-COV -2%20PATIENT%20FACT%20SHEET.pdfPerforming Laboratory:[facility] [place] [address]BUMJO METABOLIC [id number] 22:40:00 Test Item Value Reference Range Interpretation [...] S NOT APPLICABLE FOR DIALYSIS PATIEN TS. Supervisor [employer] Fabricating ID - DBSpecimen moderately ictericHEPATIC FUNCTION [id number] 22:39:00 Test Item Value Reference Range Interpretation [...] Specimen slightly (test code = 347) hemolyzed Supervisor [employer] Fabricating ID - DBSpecimen moderately ictericPROTHROMBIN TIME/[id number] 22:28:00 Test Item Value Reference Range Interpretation [...] mechanical heart valves.CBC W/PLT COUNT & AUTO [id number] 22:22:00 Test Item Value Reference Range Interpretation [...] code = 2801) ALPHA FETOPROTEIN (AFP), TUMOR [id number] 18:31:00 Test Item Value Reference Range Interpretation Comments ALPHA-FETOPROTEIN (BEAKER) (test code < ng/mL <10.0 = 1094) Supervisor [employer] ID - DBBASIC METABOLIC [id number] 15:23:00 Test Item Value Reference Range Interpretation [...] S NOT APPLICABLE FOR DIALYSIS PATIEN TS. Supervisor [employer] Fabricating ID - BSPlease sent STATSpecimen moderately ictericHEPATIC FUNCTION [id number] 15:18:00 Test Item Value Reference Range Interpretation [...] (test code = 17 U/L 6-55 347) Supervisor [employer] Fabricating ID - BSPlease sent STATSpecimen moderately ictericPROTHROMBIN [...] valves.Please sent STATCB W/PLT COUNT & AUTO [id number] 15:05:00 Test Item Value Reference Range Interpretation [...] (BEAKER) (test code = 2801) CT, ABDOMEN, [id number] 15:58:00Referring: Dr. [facility] CLINICAL [...] [place] Verified Date/Time: 05/02/2017 15:58:35 Reading Location: [address] Body Reading Room CBC W/PLT COUNT & AUTO [id number] 17:30:00 Test Item Value Reference Range Interpretation [...] code = 417) 0.00ALPHA FETOPROTEIN (AFP), TUMOR [id number] 16:31:00 Test Item Value Reference Range Interpretation Comments ALPHA-FETOPROTEIN (BEAKER) (test 3.3 ng/mL <10.0 code = 1094) Effective 06/14/2014: Reference Range ChangeNew: <10.0 Previous: 0.0-8.0 BASIC METABOLIC [id number] 16:13:00 Test Item Value Reference Range Interpretation [...] FOR DIALYSIS PATIEN TS. Specimen slightly ictericLIPID [id number] 16:13:00 Test Item Value Reference Range Interpretation [...] Very High >=190 Specimen slightly ictericHEPATIC FUNCTION [id number] 16:13:00 Test Item Value Reference Range Interpretation [...] (test code = 364) Specimen slightly ictericPROTHROMBIN TIME/[id number] 16:13:00 Test Item Value Reference Range Interpretation [...]
[2020-02-18 10:18] LABS: MPV 7.9 fL (7.6-11.3)
[2020-02-18 10:21] LABS: Protime INR 1.29
[2020-02-18 10:37] VITALS: BMI 16.6
[2020-02-18 10:55] LABS: Platelet Estimate DECR
[2020-02-18] MEDS ORDERED: ALBUMIN HUMAN 25% 300 ML IV ONE (12:12)
--- NOTE | 2020-02-18 12:23 | RAD REPORT ---
EXAM DESCRIPTION: US - Paracentesis Proc Guidance - 02/18/2020 11:39 am CLINICAL HISTORY: Ascites COMPARISON: Multiple prior paracentesis procedures. TECHNIQUE: The patient presents for ultrasound-guided paracentesis. The procedure, risks and altern atives were discussed with the patient in detail. Oral and written consent were obtained. Time out p rocedure was performed. The patient had no contraindicated allergy or medication history. PT, INR va lues within acceptable limits. Preliminary sonographic evaluation identified right lower access site. The skin and deeper tissues w ere anesthetized with 1 percent lidocaine. Under direct sonographic visualization, a paracentesis ca theter was advanced into the peritoneal cavity. Large volume drainage was initiated. Approximately 7 .5 liters of ascites removed. Approximately 20 mL of ascites was retained for requested laboratory st udies. At the conclusion of the procedure, catheter was withdrawn and a bandage placed at the puncture site. Postprocedure care and precaution instructions were given to the patient. Patient was transferred to the same day surgical area for pending albumin infusion per referring physician protocol. IMPRESSION: Ultrasound-guided paracentesis as detailed.
[2020-02-18 12:49] LABS: Body Fluid WBC 78 /mm^3
[2020-02-18 13:41] LABS: Appearance CLEAR (CLEAR); Body Fluid Source PERITONEAL
[2020-02-18 14:05] VITALS: BP 105/36; TEMP 97.8; O2SAT 98
[2020-02-18 14:08] LABS: Color of fluid Yellow (COLORLESS)
== END 2020-02-18 13:10 | disposition home or self-care (01) ==
LOC: DS 09:04
PROVIDERS: ATTEND Internal Medicine Gastroenterology
PROC: 0W9G3ZX Drainage of Peritoneal Cavity, Percutaneous Approach, Diagnostic (ICD-10-PCS; principal; 2020-02-18)
DX: K70.31 Alcoholic cirrhosis of liver with ascites (principal); R14.0 Abdominal distension (gaseous)
CPT/HCPCS: 87070; 36415; 89050; 85049; 85610; 85730; 96365; 49083; P9047

== ENCOUNTER 2020-03-06 08:32 | Day surgery (SDC) | payer OTHER ==
[2020-03-06] MEDS ORDERED: ALBUMIN HUMAN 25% 200 ML IV ONE (11:15)
[2020-03-06] MEDS ORDERED: ALBUMIN HUMAN 25% 100 ML IV ONE (11:36)
--- NOTE | 2020-03-06 12:47 | RAD REPORT ---
EXAM DESCRIPTION: US - Paracentesis Proc Guidance - 03/06/2020 12:34 pm CLINICAL HISTORY: ASCITES Ascites COMPARISON: Paracentesis Proc Guidance dated 02/18/2020 FINDINGS: Informed consent was obtained and time-out was performed. Patient's abdomen was prepped and draped in the usual sterile fashion. 1% lidocaine was used for loca l anesthetic purposes. A small skin incision was made. A paracentesis catheter was guided into the peroneal cavity under son ographic guidance. A small amount of fluid was sent for requested lab studies. A large volume paracentesis was performed . The patient tolerated the procedure well. Patient was administered IV albumin per protocol following the procedure. IMPRESSION: Successful ultrasound-guided paracentesis.
--- OUTSIDE RECORDS SUMMARY | 2020-03-06 13:07 | XMS REPORT | Clinical Summary ---
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
--- OUTSIDE RECORDS SUMMARY | 2020-03-06 13:09 | XMS REPORT | Clinical Summary ---
:1955 Author Organization [facility] Address [address] [place] [address] Care Team Providers Name Role Phone Zeinab [...] mg total) by 0 tablet mouth daily. magnesium oxide Take 1 tablet 30 tablet [...] 10 days. Max Daily Amount: 200 mg midodrine Take 1 tablet 90 tablet 0 02/25/20 d (PROAMATINE) 2.5 MG (2.5 mg total) by 0 20 tablet mouth 3 (three) times daily for 30 days. rifAXIMin 550 mg Take 1 tablet 60 [...] evaluation for liver transplant; Acute and subac jolly hepatic failure with coma (HCC) 02/15/2020 Telephone [...] Orders Only Hepatology Laron, Line Hepatic Kastrup, PYROTECHNIC MIXER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) 02/03/2020 Documentation Hepatology Kristofer Cross MD 02/02/2020 Telephone Transplant Hepatology Cary Talley RN 02/01/2020 UNOS Charge Visit Transplant Hepatology Rito Saini irrhosis of liver Ildefonso Spencer MD without ascites , unspecified hep atic cirrhosis type (HCC) 02/01/2020 Documentation Transplant Hepatology Brigitte Hamilton 02/01/2020 Abstract Transplant Hepatology Cary Talley RN 02/01/2020 Telephone Hepatology PRIOR ITZEL Craven (CHRSITIANOF AXJOCY) Kimmie 02/01/2020 Orders Only Transplant Hepatology [...] clearance R, RN 01/21/2020 Abstract Transplant Hepatology LawPoonam R 01/20/2020 Documentation Transplant Hepatology Law, Poonam R 01/20/2020 Abstract Transplant Hepatology Inge Salazar MA 01/19/2020 Surgery Nallely, R & L CATH / MD Brian CORONARY ANGIOS (+/- LV) 01/18/2020 Outside Orders Radiology Mitzy English, PYROTECHNIC MIXER 01/17/2020 Anesthesia Event Gastroenterology Vinicius, Tigist Gottlieb, ETIENNE 01/17/2020 Surgery Gastroenterology Sylvie George, UPPER MD ENDOSCOPY,BIOPS Y 01/15/2020 Documentation Transplant Hepatology Cheryle Fischer Cirr hosis of liver without ascites, unspecified hepatic cirrhosis type (HCC); Prashanth, RN Pre-transplant evaluation for liver transplant 01/14/2020 [...] testing; Ramone, Hepatorenal syn drome (HCC); Graciela Randall, Hyponatremia; Pre-transplant evaluation for liver transplant; Encounter [...] hepatic cirrhosis type (HCC) (Primary Dx); Mike Armando, Portal hypert ension ; Secondary esophageal varices without ble eding (HCC); Larry, Line Obesity (BMI 35.0-39.9 without comorbidity); Kastrup, PYROTECHNIC MIXER Adrenal mass, l eft ; Screening for m alignant neoplasm; Elevated serum creatinine; Other ascites 12/31/2019 Telephone Hepatology Niraj, Dai Goncalves MA 12/21/2019 Documentation Hepatology Laron, Kadie Kastrup, PYROTECHNIC MIXER 12/17/2019 Abstract Hepatology Ivanna Healy MA 12/16/2019 Abstract Hepatology Janna Aparicio RN 12/16/2019 Abstract Hepatology Janna Aparicio RN 12/16/2019 Abstract Hepatology Janna Aparicio RN 12/15/2019 Audio - Hepatology Laron Line Portal hypert ension (Primary Dx); Telemedicine Kastrup, PYROTECHNIC MIXER 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); Obesity (BMI 35 .0-39.9 without comorbidity); Adrenal mass, l eft ; Screening for m alignant neoplasm 12/14/2019 Telephone Hepatology Glynn, Dai De La Fuente MA after 03/06/2019 Family History Medical History Relation Name Comments [...] Follow-Up Transplant Hepatology Whitney Cross MD [address] [address] [phone] 04/11/2020 Appointment Kristofer Cross MD [address] [address] 0 [phone] Health Maintenance Due Date Last Done Comments BREAST CANCER SCREENING 1955 CERVICAL CANCER SCREENING PAP ONLY (Age 1207/08/1976 21-65) PNEUMOCOCCAL 65+ LOW/MEDIUM RISK (1 of 2 - 2019 PCV13) Medicare IPPE (WELCOME TO MEDICARE) 07/28/2019 INFLUENZA VACCINE (#1) 2020 LIPID PANEL 01/14/2023 01/15/2020, 10/23/2016 COLON CANCER SCREENING COLONOSCOPY 01/16/2030 01/17/2020 Procedures [...] i n the results section. MISCELLANEOUS LAB Routine 02/15/2020 12:29 Acute liver failure ORDER PM CDT without hepatic coma Pre-transplant evaluation for liver transplant PLATELET ESTIMATION Routine 02/08/2020 10:23 Resu lts [...] procedure are i n the results section. [id number] AP Routine 01/19/2020 9:43 PHENOTYP PM CDT [...] 452 ms QTC Calculation(Bazett) 458 ms P Gill 59 degrees R Gill 32 degrees T Gill 56 degrees Normal sinus rhythm Normal ECG [...] procedure are i n the results section. [id number]-[id number]\\, Routine 01/15/2020 4:17 Re sults for this [...] are i n the results section. SARS-COV2/RT-PCR ([facility] STAT 01/14/2020 7:28 R esults for this [...] results hepatic cirrhosis section. type (HCC) after 03/06/2019 Results Miscellaneous lab test (02/15/2020 12:29 PM CDT)Only the most recent of2 results within the time period is included. Scan Result [facility] Specimen Blood Narrative Performed At This result has an attachment that is no t available. Performing Organization Address City/State/Zipcode Phone Number [facility] [address] [facility], [place] CBC with platelet count + automated diff (02/15/2020 12:29 PM CDT)Only the most recent of15 resultswithin the time period is included. WBC 2.5 (L) 3.5 - 10.5 K/L [facility] RBC 2.31 (L) 3.93 - 5.22 M/L [facility] Hemoglobin 8.8 (L) 11.2 - 15.7 GM/DL [facility] Hematocrit 28.0 (L) 34.1 - 44.9 % [facility] MCV 121.2 (H) 79.4 - 94.8 fL [facility] MCH 38.1 (H) 25.6 - 32.2 pg [facility] MCHC 31.4 (L) 32.2 - 35.5 GM/DL [facility] RDW 20.9 (H) 11.7 - 14.4 % [facility] Platelets 48 (L) 150 - 450 K/CU MM [facility] MPV 10.0 9.4 - 12.3 fL [facility] nRBC 0 0 - 0 /100 WBC [facility] % Neutros 62 % [facility] % Lymphs 24 % [facility] % Monos 10 % [facility] % Eos 4 % [facility] % Baso 1 % [facility] # Neutros 1.56 1.56 - 6.13 K/L [facility] # Lymphs 0.60 (L) 1.18 - 3.74 K/L [facility] # Monos 0.24 0.24 - 0.36 K/L [facility] # Eos 0.10 0.04 - 0.36 K/L [facility] # Baso 0.02 0.01 - 0.08 K/L [facility] Immature 0 0 - 1 % [facility] Granulocytes-Relative MEDICAL CE NTER Specimen Blood Performing Organization Address [facility] Phone Number [address] [address] CENTER Prothrombin time/INR (02/15/2020 12:29 PM CDT)Only the most recent of17 results within the time period is included. Protime 18.1 (H) 11.9 - 14.2 seconds [facility] INR 1.5 <=5.9 [facility] Specimen Blood Narrative Performed At Effective 12/23/2018: PT Reference Range [facility] Change New: 11.9-14.2Previous: 11.7-14.7 RECOMMENDED COUMADIN/WARFARIN INR THERAPY RANGES STANDARD DOSE: 2.0-3.0Includes: PROPHYLAXIS for venous thrombosis, systemic embolization; TREATMENT for venous thrombosis and/or pulmonary embolus. HIGH RISK: Target INR is 2.5-3.5 for patients wiht mechanical heart valves. Performing Organization Address City/[facility] Phone Number [address] [address] CENTER Magnesium (02/15/2020 12:29 PM CDT)Only the most recent of13 resultswithin the time period is included. Magnesium 1.8 1.6 - 2.6 mg/dL [facility] Specimen Blood Narrative Performed At Media Reporter ID - LM [facility] Performing Organization Address City/[facility] Phone Number [address] [address] [place] Bilirubin, direct (02/15/2020 12:29 PM CDT)Only the most recent of4 results within the time period is included. Bilirubin, Direct 2.5 (H) 0.1 - 0.5 mg/dL [facility] Specimen Blood Narrative Performed At Media Reporter ID - LM [facility] Performing Organization Address [facility] Phone Number [address] [address] [place] Comprehensive metabolic panel (02/15/2020 12:29 PM CDT)Only the most recent of8 resultswithin the time period is included. Protein, Total 6.5 6.0 - 8.3 gm/dL [facility] Albumin 3.2 (L) 3.5 - 5.0 g/dL [facility] Alkaline Phosphatase 107 40 - 150 U/L [facility] Total Bilirubin 7.4 (H) 0.2 - 1.2 mg/dL [facility] Sodium 140 136 - 145 meq/L [facility] Potassium 4.1 3.5 - 5.1 meq/L [facility] Chloride 107 98 - 107 meq/L [facility] CO2 26 22 - 29 meq/L [facility] BUN 23 (H) 7 - 21 mg/dL [facility] Creatinine 1.33 (H) 0.57 - 1.25 mg/dL [facility] Glucose 87 70 - 105 mg/dL [facility] Calcium 9.5 8.4 - 10.2 mg/dL [facility] AST 39 (H) 5 - 34 U/L [facility] ALT 16 6 - 55 U/L [facility] EGFR 40Comment: ESTIMATED GFR mL/min/1.73 sq m [facility] IS NOT ACCURATE [facility] CREATININE CLEARANCE IN PREDICTING GLOMERULAR FILTRATION RATE. ESTIMATED GFR IS NOT APPLICABLE FOR DIALYSIS PATIENTS. Specimen Blood Narrative Performed At Media Reporter ID - LM [facility] Specimen moderately icteric Performing Organization Address City/State/Zipcode Phone Number [facility] [address] [place] [address] CENTER PLATELET ESTIMATION (02/08/2020 10:23 AM CDT) Platelet Estimate DECREASED (A) ADEQUATE [facility] Specimen Narrative Performed At FASTING:YES [facility] FASTING: YES Resulting Agency Comment Performing Organization Information: Site ID: [id number] Name: [facility] Address: [address] [place] [address] Director: Jj Carrasco Performing Organization Address City/State/Zipcode Phone Number [facility] [address] [place] [address] [facility] CBC with platelet count + automated [...] Performing Organization Information: Site ID: [id number] Name: [facility] Address: [address] [place] [phone] Director: Jj Carrasco Performing Organization Address City/State/Zipcode Phone Number [facility] [address] [place] [address] [facility] RHYTHM STRIP - SCAN (01/27/2020 10:00 AM [...] perfo rmance characteristics have been determined by [employer] [facility]. It has not been cleared or approved by FDA. This assay has been validated pursuant to the CLIA regulations and is used for clinical purposes. Normetanephrine 213 (H) < OR = 148 pg/mL [facility] Comment: INCORPORATED This test was developed and its analytical perfo rmance characteristics have been determined by [employer] [facility]. It has not been cleared [...] 2008. For additional information, please refer to http://education.SafeAwake.[employer]/faq/MetFra ctFree (This link is being provided for informational/e ducational purposes only.) This test was developed and its analytical perfo rmance characteristics have been determined by [employer] [facility]. It has not been cleared or approved by FDA. This assay has been validated pursuant to the CLIA regulations and is used for clinical purposes. Specimen Blood Narrative Performed At Performing Lab [facility] EZ [facility] [address] [address] [place] [address] Mark Encarnacion MD, PhD, AMINA Performing Organization Address City/State/Zipcode Phone Number [facility] [place] [address] INCORPORATED [address] [facility] Calcium, Ionized (01/26/2020 3:50 AM CDT)Only the most recent of7 resultswithin the time period is included. Calcium, Ion 1.11 (L) 1.12 - 1.27 mmol/L [facility] pH, Blood 7.41 [facility] Specimen Blood Performing Organization Address City/[facility]/Zipcode Phone Number [address] [address] CENTER Phosphorus (01/26/2020 3:50 AM CDT)Only the most recent of7 resultswithin the time period is included. Phosphorus 3.2 2.3 - 4.7 mg/dL [facility] Specimen Blood Narrative Performed At Media Reporter ID - BS [facility] Performing Organization Address City/[facility] Phone Number [address] [address] CENTER Hepatic function panel (01/26/2020 3:50 AM CDT)Only the most recent of13 resultswithin the time period is included. Protein, Total 5.7 (L) 6.0 - 8.3 gm/dL [facility] Albumin 3.4 (L) 3.5 - 5.0 g/dL [facility] Total Bilirubin 6.9 (H) 0.2 - 1.2 mg/dL [facility] Bilirubin, Direct 2.2 (H) 0.1 - 0.5 mg/dL [facility] Alkaline Phosphatase 58 40 - 150 U/L [facility] AST 36 (H) 5 - 34 U/L [facility] ALT 13 6 - 55 U/L [facility] Specimen Blood Narrative Performed At Media Reporter ID - BS [facility] Specimen moderately icteric Performing Organization Address City/State/Zipcode Phone Number [address] [address] CENTER Manual Differential (01/25/2020 3:47 AM CDT)Only the most recent of7 results within the time period is included. % Neutros 66 % [facility] % Lymphs 24 % [facility] % Monos 7 % [facility] % Eos 2 % [facility] % Metamyelo 1 (H) 0 - 0 % [facility] # Neutros 0.92 (L) 1.56 - 6.13 K/ul [facility] # Lymphs 0.34 (L) 1.18 - 3.74 K/ul [facility] # Monos 0.10 (L) 0.24 - 0.36 K/uL [facility] # Eos 0.03 (L) 0.04 - 0.36 K/uL [facility] # Metamyelo 0.01 (H) 0.00 - 0.00 K/uL [facility] Total Counted 100 [facility] Smudge [facility] Present [facility] Giant Platelet Present [facility] Anisocytosis 2+ moderate [facility] Macrocytes 2+ moderate [facility] Poikilocytes 2+ moderate [facility] Freddie Cells 2+ moderate [facility] Artifact Present [facility] Platelet Conc Decreased [facility] Specimen Blood Narrative Performed At Media Reporter ID - John [facility] Media Reporter ID - Maria Del Carmen Silvio User comments: Slide comments: Performing Organization Address City/State/Zipcode Phone Number [facility] [address] [place] [address] CENTER Basic Metabolic Panel (01/25/2020 3:47 AM CDT)Only the most recent of10 results within the time period is included. Sodium 140 136 - 145 meq/L [facility] Potassium 3.4 (L) 3.5 - 5.1 meq/L [facility] Chloride 105 98 - 107 meq/L [facility] CO2 25 22 - 29 meq/L [facility] BUN 31 (H) 7 - 21 mg/dL [facility] Creatinine 2.35 (H) 0.57 - 1.25 mg/dL [facility] Glucose 108 (H) 70 - 105 mg/dL [facility] Calcium 8.7 8.4 - 10.2 mg/dL [facility] EGFR 21Comment: ESTIMATED GFR IS mL/min/1.73 sq m [facility] ACC[facility] CLEARANCE IN PREDICTING GLOMERULAR FILTRATION RATE. ESTIMATED GFR IS NOT APPLICABLE FOR DIALYSIS PATIENTS. Specimen Blood Narrative Performed At Media Reporter ID - PIAYA L [facility] Specimen moderately icteric Performing Organization Address City/State/Zipcode Phone Number [facility] [address] [place] [address] CENTER TRANSFUSION SERVICE REPORT - [...] CDT) Narrative Performed At Epifanio Giles RRT, [employer] TECHNICIAN 2019 10:52 AM [facility] PFT CHARTING REPORT Infection Control/Hand Hygiene procedure s followed throughout the encounter with patient: Yes Patient Identification Method: Patient n celia verified on armband, and Medical record on armband, Is the order complete?: Yes Account ID#: [id number] Patient Name: Cici Calderon Birthdate: 1955 Age: [...] informed of the ordered study by the alvin foss Barriers to performing study or treatme nt: Patient has no known disability to perform the study or treat ment. DISCHARGE The study was completed in accordance wi th the physician's order and patient released from the lab withou t adverse outcome. Pulmonary Funct Lab Spirometry (01/24/2020 10:41 AM CDT) Narrative Performed At Epifanio Giles RRT, [facility] 2019 10:52 AM [facility] PFT CHARTING REPORT Infection Control/Hand Hygiene procedure s followed throughout the encounter with patient: Yes Patient Identification Method: Patient n celia verified on armband, and Medical record on armband, Is the order complete?: Yes Account ID#: [id number] Patient Name: Cici Calderon Birthdate: 1955 Age: [...] informed of the ordered study by the alvin foss Barriers to performing study or treatme nt: Patient has no known disability to perform the study or treat ment. DISCHARGE The study was completed in accordance wi th the physician's order and patient released from the lab withou t adverse outcome. DLCO (single breath diffusion) (01/24/2020 10:41 AM CDT) Narrative Performed At Epifanio Giles RRT, [employer] TECHNICIAN 2019 10:52 AM [facility] PFT CHARTING REPORT Infection Control/Hand Hygiene procedure s followed throughout the encounter with patient: Yes Patient Identification Method: Patient n celia verified on armband, and Medical record on armband, Is the order complete?: Yes Account ID#: [id number] Patient Name: Cici Calderon Birthdate: 1955 Age: [...] informed of the ordered study by the alvin foss Barriers to performing study or treatme nt: Patient has no known disability to perform the study or treat ment. DISCHARGE The study was completed in accordance wi th the physician's order and patient released from the lab withou t adverse outcome. 6 MINUTE WALK(FOR LUNG TRANSPLANT ONLY) (01/24/2020 10:20 AM CDT) Narrative Performed At Janina Meehan RRT [employer] COMMISSIONING TECHNICIAN 20192:39 PM [facility] PFT CHARTING REPORT Infection Control/Hand Hygiene procedure s followed throughout the encounter with patient: Yes Patient Identification Method: Patient n celia verified on armband, and Medical record on armband, Is the order complete?: Account ID#: [id number] Patient Name: Cici Calderon Birthdate: 1955 Age: [...] informed of the ordered study by the alvin foss Barriers to performing study or treatme [...] ABO A Pos SAFETRACE TX UNIT NUMBER [id number] SAFETRACE TX Status TX_TIMEINCHART SAFETRACE TX Blood Bank Product RED BLOOD CELLS SAFETRACE TX PRODUCT CODE [id number] SAFETRACE [place] Specimen Other Performing Organization Address City/[facility] Phone Number SAFETRACE [place] B-type Natriuretic Factor (BNP) (01/23/2020 4:32 AM CDT)Only the most recent of 2 resultswithin the time period is included. BNP 2,179 (H) 0 - 100 pg/mL [facility] Specimen Blood Narrative Performed At Media Reporter ID - PIAYA L [facility] Performing Organization Address [facility] Phone Number [facility] [address] [place] [address] CENTER Prepare Leuko-Red PLT (01/22/2020 11:54 PM CDT)Only the most recent of2 results within the time period is included. Unit ABO A Pos SAFETRACE TX UNIT NUMBER [id number] SAFETRACE TX Status WORK IN PROGRESS SAFETRACE TX Blood Bank Product PLATELETS SAFETRACE TX PRODUCT CODE [id number] SAFETRACE TX Unit ABO O Pos SAFETRACE TX UNIT NUMBER [id number] SAFETRACE TX Status TX_TIMEINCHART SAFETRACE TX Blood Bank Product PLATELETS SAFETRACE TX PRODUCT CODE [id number] SAFETRACE TX Specimen Blood Performing Organization Address [facility] Phone Number SAFETRACE TX Transfuse Leuko-Red RBC (01/22/2020 2:30 PM CDT)Only the most recent of4 resultswithin the time period is included.Cortisol (01/22/2020 8:23 AM CDT)Only the most recent of2 resultswithin the time period is included. Cortisol, Total 1.6 (L) 3.7 - 19.4 ug/dL [facility] Specimen Blood Narrative Performed At Media Reporter ID - PIAYA L [facility] Performing Organization Address City/[facility] Phone Number [address] [address] CENTER ABORH, manual (01/22/2020 4:34 AM CDT) ABO Grouping A [facility] Rh Factor POS [facility] Specimen Blood Performing Organization Address [facility] Phone Number [address] [address] Direct [facility]HG (RAMIREZ)/Direct Jewel (01/22/2020 4:34 AM CDT) Direct [facility]HG-IGG NEGATIVE [facility] Direct AHG-C3B, C3D NEGATVIE [facility] Specimen Blood Performing Organization Address [facility] Phone Number [address] [address] Body fluid culture + gram stain (01/21/2020 4:54 PM CDT) Result No growth [facility] Gram Stain Result <1+ White blood cells seen [facility] Gram Stain Result No organisms seen [facility] Specimen Body Fluid Performing Organization Address [facility] Phone Number [address] [address] [place] Body fluid cell count with differential (01/21/2020 4:54 PM CDT) Appearance Hazy (A) Clear [facility] Color Cele (A) Colorless, Straw [facility] RBCs 4,000 (H) <=1 /cu mm [facility] Adjusted WBC Count 86 (H) <=5 /cu mm [facility] Lining Cells 1 <=1 /cu mm [facility] % Segs 7 % [facility] % Lymphs 83 % [facility] % Monos 10 % [facility] % Eos 0 % [facility] % Baso 0 % [facility] Container Body Fluid Sterile Vial [facility] Specimen Body Fluid Performing Organization Address City/State/Zipcode Phone Number [facility] [address] [place] [address] [facility] paracentesis (01/21/2020 4:40 PM CDT) Specimen Narrative Performed At FINAL REPORT [facility] Ultrasound guided paracentesis Clinical History:Ascites. Sedation: None. Manager Economic: Christine Ward PA-C Supervising Physician: Natan Chisholm MD Ambulance Driver:None. Estimated Blood Loss: < 1 mL. Specimen: [...] anesthesia was achieved with lidocaine, a 5 Greek one-step catheter was advanced into the peritoneal cavity under ultrasound guidance. After completion of drainage, the cathet er was removed. There was no evidence of complication. Impression: Successful ultrasound guided paracentesi s. Signed: Natan Chisholm MD Report Verified Date/Time:01/24/2020 09:43:05 Reading Location: [facility] B1 [id number] Ultrasoun d Reading Room Procedure Note Interface, External Ris In - 01/24/2020 9:45 AM CDT FINAL REPORT Ultrasound guided paracentesis Clinical History: Ascites. Sedation: None. Manager Economic: Christine Ward PA-C Supervising Physician: Natan Chisholm MD Ambulance Driver: None. Estimated Blood Loss: < 1 mL. [...] anesthesia was achieved with lidocaine, a 5 Greek one-step catheter was advanced into the peritoneal cavity under ultrasound guidance. After completion of drainage, the cathet er was removed. There was no evidence of complication. Impression: Successful ultrasound guided paracentesi s. Signed: Natan Chisholm MD Report Verified Date/Time: 01/24/2020 0 9:43:05 Reading Location: [facility] B1 [id number] Ultrasbhavik d Reading Room Performing Organization Address City/State/Zipcode Phone Number RIS Peripheral Blood Smear - Hold only (01/21/2020 9:31 AM CDT) Peripheral Smear Save saved [facility] Specimen Blood Performing Organization Address City/State/Zipcode Phone Number [address] [address] CENTER Reticulocyte count (01/21/2020 9:31 AM CDT)Only the most recent of2 results within the time period is included. % Retic 5.3 (H) 0.5 - 1.7 % [facility] Specimen Blood Narrative Performed At Media Reporter ID - [id number] [facility] Performing Organization Address City/State/Zipcode Phone Number [facility] [address] [place] [address] CENTER XR chest 1 view portable / bedside (01/21/2020 9:10 AM CDT)Only the most recent of2 resultswithin the time period is included. Specimen Narrative Performed At FINAL REPORT [employer] INDICATION: Edema COMPARISON: January 20, 2020 TECHNIQUE: [...] MD Report Verified Date/Time:01/21/2020 10:03:32 Reading Location: [facility] Reading Room Procedure Note Interface, External [...] Verified Date/Time: 01/21/2020 1 0:03:32 Reading Location: [place] Reading Room Performing Organization Address City/State/Zipcode Phone Number [employer] Metanephrines, 24 hour urine (01/20/2020 10:51 PM CDT) TOTAL VOLUME 1000 mL [facility] Metanephrine 205 90 - 315 [facility] Comment: mcg/24 h INCORPORATED This test was developed and its analytical perfo rmance characteristics have been determined by [employer] [facility]. It has not been cleared or approved by FDA. This assay has been validated pursuant to the CLIA regulations and is used for clinical purposes. Normetanephrine 657 122 - 676 [facility] Comment: mcg/24 h INCORPORATED This test was developed and its analytical perfo rmance characteristics have been determined by [employer] [facility]. It has not been cleared [...] perfo rmance characteristics have been determined by [facility]. It has not been cleared or approved by FDA. This assay has been validated pursuant to the CLIA regulations and is used for clinical purposes. Specimen Urine Narrative Performed At Performing Lab [facility] [employer] [facility] [address] [place] [address] Mark Encarnacion MD, PhD, AMINA Performing Organization Address City/[facility]/Zipcode Phone Number [facility], [place] [address] INCORPORATED [address] [facility] Catecholamines, Fractionated, 24hr urine (01/20/2020 10:51 PM CDT) TOTAL VOLUME 1000 mL [facility] Epinephrine,24 Hr Ur <2 (L) 2 - 24 mcg/24 h [facility] Comment: INCORPORATED Result below clinical reportable range for this analyte, which is 2 mcg/L. Reported result was calculated using 2 mcg/L. This test was developed and its analytical perfo rmance characteristics have been determined by [employer] [facility]. It has not been cleared or approved by FDA. This assay has been validated pursuant to the CLIA regulations and is used for clinical purposes. Norepinephrine 9 (L) 15 - 100 mcg/24 [facility] Comment: h INCORPORATED This test was developed and its analytical perfo rmance characteristics have been determined by [employer] [facility]. It has not been cleared or approved by FDA. This assay has been validated pursuant to the CLIA regulations and is used for clinical purposes. Calculated Total E+Ne 9 (L) 26 - 121 mcg/24 [facility] Comment: h INCORPORATED This test was developed and its analytical perfo rmance characteristics have been determined by [employer] [facility]. It has not been cleared or approved [...] perfo rmance characteristics have been determined by [employer] [facility]. It has not been cleared or approved by FDA. This assay has been validated pursuant to the CLIA regulations and is used for clinical purposes. Creatinine,24 Hr Urin 0.88 0.50 - 2.15 [facility] g/24 h INCORPORATED Specimen Urine Narrative Performed At Performing Lab [facility] [employer] [facility] [address] [facility] [place] [address] Mark Encarnacion MD, PhD, AMINA Performing Organization Address City/State/Zipcode Phone Number [facility], [place] [address] [address] Type and screen, automated (01/20/2020 8:39 PM CDT)Only the most recent of2 resultswithin the time period is included. ABO/RH AUTOMATED (BEAKER) A POSITIVE [facility] Ab Scrn NEGATIVE [facility] Specimen Blood Performing Organization Address City/State/Zipcode Phone Number [facility] [address] [place] [address] MR abdomen without IV contrast (01/20/2020 5:54 PM CDT) Specimen Narrative Performed At FINAL REPORT [facility] TECHNIQUE: MRI of the abdomen WITHOUT in [...] MD Report Verified Date/Time:01/21/2020 07:51:30 Reading Location: [facility] Reading Room - [place] [id number] Procedure Note Interface, External Ris In [...] Verified Date/Time: 01/21/2020 0 7:51:30 Reading Location: [facility] Diagnostic [facility] Reading Room - [place] [address] Performing Organization Address City/State/Zipcode Phone Number GE [facility] Urinalysis w/Microscopic + Reflex to Culture (01/19/2020 11:19 PM CDT) Color, UA Yellow [facility] Clarity, UA Hazy [facility] Specific [place], UA 1.017 1.001 - 1.035 [facility] pH, UA 5.5 5.0 - 8.0 [facility] Protein, UA 20 mg/dL (A) Negative [facility] Glucose, UA Negative Negative [facility] Ketones, UA Negative Negative [facility] Bilirubin, UA Negative Negative [facility] Blood, UA Small (A) Negative [facility] Nitrite, UA Negative Negative [facility] Leukocytes, UA Trace (A) Negative [facility] Urobilinogen, UA 0.2 0.2 - 1.0 mg/dL [facility] RBC, UA 1 /HPF [facility] WBC, UA 3 /HPF [facility] Bacteria, UA Rare [facility] Squam Epithel, UA 3 /HPF [facility] Hyaline Casts, UA 3 /LPF [facility] Specimen Source [facility] Specimen Urine Performing Organization Address City/State/Zipcode Phone Number [facility] [address] [place] [address] CENTER Sodium, random urine (01/19/2020 11:19 PM CDT)Only the most recent of3 results within the time period is included. Sodium Urine <20 meq/L [facility] Specimen Urine Narrative Performed At Reference Range: No Normals [facility] Media Reporter ID - MITCH Linares Performing Organization Address City/State/Zipcode Phone Number [facility] [address] [place] [address] CENTER Urinalysis w/Microscopic (01/19/2020 11:19 PM CDT)Only the most recent of2 resultswithin the time period is included. Color, UA Yellow [facility] Clarity, UA Hazy [facility] Specific [place], UA 1.017 1.001 - 1.035 [facility] pH, UA 5.5 5.0 - 8.0 [facility] Protein, UA 20 mg/dL (A) Negative [facility] Glucose, UA Negative Negative [facility] Ketones, UA Negative Negative [facility] Bilirubin, UA Negative Negative [facility] Blood, UA Small (A) Negative [facility] Nitrite, UA Negative Negative [facility] Leukocytes, UA Trace (A) Negative [facility] Urobilinogen, UA 0.2 0.2 - 1.0 mg/dL [facility] RBC, UA 1 /HPF [facility] WBC, UA 3 /HPF [facility] Bacteria, UA Rare [facility] Squam Epithel, UA 3 /HPF [facility] Hyaline Casts, UA 3 /LPF [facility] Specimen Source [facility] Specimen Urine Narrative Performed At Media Reporter ID - [auto] [facility] Media Reporter ID - tech Performing Organization Address City/State/Zipcode Phone Number [facility] [address] [place] [address] CENTER Blood Culture - Routine (Right Venipuncture) (01/19/2020 9:45 PM CDT)Only the most recent of4 resultswithin the time period is included. Result No growth in 5 days [facility] Specimen Blood Performing Organization Address [facility] Phone Number [address] [address] [place] [id number] PHENOTYP (01/19/2020 9:43 PM CDT) Specimen Blood Narrative Performed At This result has an attachment that is no t available. Performing Organization Address [facility] Phone Number [facility]FAC[facility] [address] [facility], [place] Blood gas, arterial (01/19/2020 3:44 PM CDT) pH, Arterial 7.42 7.35 - 7.45 [facility] pCO2, Arterial 36 35 - 45 mmHg [facility] pO2, Arterial 78 (L) 80 - 90 mmHg [facility] O2 Sat, Arterial 96.2 96.0 - 97.0 % [facility] HCO3, Arterial 23 21 - 29 mmol/L [facility] Base Excess, Arterial -1.9 -2.0 - 3.0 mmol/L [facility] Patient Temperature 36.1 C [facility] FIO2 28.0 % [facility] Specimen Blood, Arterial Performing Organization Address [facility] Phone Number [facility] [address] [place] [address] [place] Cryptococcal antigen (01/19/2020 3:04 PM CDT) Cryptococcal Antigen, Serum Negative Negative, Interferen ce [facility] Specimen Blood Performing Organization Address [facility]/Zipcode Phone Number [facility] [address] [place] [address] CENTER Rubeola antibody IgG (01/19/2020 3:04 [...] patient. For additional information, please refer to http://education.India Property Online/faq/UHJ429 (This link is being provided for informational/ educational purposes only.) Specimen Blood Narrative Performed At Performing Lab [facility] *QDID [employer] Infectious Di [facility] [address] [place] [phone] H Jorje Hargrove MD Performing Organization Address [facility] Phone Number [facility] [place] [address] [address] [place] [address] Rubella antibody, IgG (01/19/2020 3:04 PM CDT) Rubella IgG Quant 127.0 (H) <8.0 IU/mL [facility] Specimen Blood Narrative Performed At Rubella IgG Result Interpretation: [facility] </= 7.0 IU/mL Negative - Presumed non-immune 8.0 - 9.9 IU/mL Equivocal >= 10.0 IU/mL Positive - Presumed immune Performing Organization Address [facility]/Zipcode Phone Number [address] [address] CENTER Varicella zoster antibody, IgG (01/19/2020 3:04 PM CDT) Varicella IgG 3.6 [facility] Specimen Blood Narrative Performed At VARICELLA ZOSTER RESULT INTERPRETATIONS: [facility] <=0.8 AlNonreactive:Presumed non-immune to VZV 0.9-1.0 AlEquiv ocal >=1.1 AlReactive:Presumed immune to VZV Performing Organization Address City/State/Zipcode Phone Number [facility] [address] [place] [address] CENTER Mumps antibody, IgG (01/19/2020 [...] Specimen Blood Narrative Performed At Performing Lab [facility] *[employer] Infectious Di se[facility], [facility] [address] [place] [phone] Sudhakar Hargrove MD Performing Organization Address City/[facility] Phone Number [facility] [place] [address] [address] [place] [address] US breast bilateral (01/19/2020 9:10 AM CDT) Specimen Narrative Performed At FINAL REPORT [employer] COMPLETE ULTRASOUND OF BOTH BREASTS AND AXILLA: [...] MD Report Verified Date/Time:01/19/2020 09:52:28 Reading Location: [address] Mammo Re ading Room Procedure Note [...] Verified Date/Time: 01/19/2020 0 9:52:28 Reading Location: [address] Mammo Re ading Room Performing Organization Address [facility] Phone Number [facility] Aldosterone (01/19/2020 4:11 AM CDT) Aldosterone 22 ng/dL [facility] Comment: Adult Reference Ranges for Aldosterone: Upright 8:00-10:00 am< or = 28 ng/d L Upright 4:00-6:00 pm < or = 21 ng/d L Supine8:00-10:00 am3-16 ng/dL This test was developed and its analytical perfo rmance characteristics have been determined by [employer] [facility]. It has not been cleared or approved by FDA. This assay has been validated pursuant to the CLIA regulations and is used for clinical purposes. Specimen Blood Narrative Performed At Performing Lab [facility] [employer] [address] [facility] [address] Mark Encarnacion MD, PhD, AMINA Performing Organization Address City/[facility] Facility[facility] Phone Number [facility] [place] [address] INCORPORATED [address] [facility] Renin, plasma (01/19/2020 4:11 AM CDT) PRA,LC/MS/MS 1.51 0.25 - 5.82 [facility] Comment: ng/mL/h INCORPORATED This test was developed and its analytical perfo rmance characteristics have been determined by [facility] [place]. It has not been cleared or approved by FDA. This assay has been validated pursuant to the CLIA regulations and is used for clinical purposes. Specimen Blood Narrative Performed At Performing Lab [facility] [employer] [address] [facility] [address] I Shashank ADRIAN, PhD, AMINA Performing Organization Address City/State/Zipcode Phone Number [facility] [place] [address] INCORPORATED [address] [facility] [address] abdomen without IV contrast (01/19/2020 12:40 AM CDT) Specimen Narrative Performed At FINAL REPORT [employer] TECHNIQUE: CT of the abdomen WITHOUT int ravenous contrast and WITHOUT oral contrast. Dose modulation, iterativ e reconstruction, and/or weight-based adjustment of the mA/kV was utilized to reduce the radiation dose to as low as reasonably a chievable. INDICATION: Adrenal nodule. COMPARISON: 05/02/2017, MRI April, [...] MD Report Verified Date/Time:01/19/2020 08:09:04 Reading Location: [facility] [employer] Reading Room - [place] [id number] Procedure Note Interface, External Ris In - [...] Verified Date/Time: 01/19/2020 0 8:09:04 Reading Location: [facility] [employer] Reading Room - [place] [address] Performing Organization Address City/State/Zipcode Phone Number [employer] US renal complete (01/19/2020 12:20 AM CDT) Specimen Narrative Performed At FINAL REPORT [employer] Ultrasound of the Kidneys Clinical History:Re-examine L [...] Date/Time: 01/19/2020 0 1:26:59 Performing Organization Address [facility] Phone Number GE [facility] Protein, random urine (01/18/2020 8:49 PM CDT) Protein, Urine 45 (H) 0 - 14 mg/dL [facility] Specimen Urine - Urine, Sterile Collection Narrative Performed At Media Reporter ID - ED[facility] B [facility] Performing Organization Address [facility] Phone Number [address] [address] [place] Creatinine, random urine (01/18/2020 8:49 PM CDT)Only the most recent of2 resultswithin the time period is included. Creatinine, Ur 181.3 mg/dL [facility] Specimen Urine - Urine, Sterile Collection Narrative Performed At Reference Range: No Normals [facility] Media Reporter ID - EDWIN B Performing Organization Address [facility] Phone Number [address] [address] [place] Eosinophil smear (01/18/2020 8:49 PM CDT) Eosinophil Smear Rare EOS =less than 5% No EOS seen [facility] WBCs seen are EOS (A) MEDICAL CE [facility]TER Specimen Urine - Urine, Sterile Collection Performing Organization Address [facility] Phone Number [address] [address] [place] Myocardial Perfusion Pet/CT (Rest & Stress) (01/18/2020 9:20 AM CDT) Specimen Narrative Performed At FINAL REPORT GE [facility] PROCEDURE: MYOCARDIAL PERFUSION PET IMAG ING (Rest/Stress) CPT CODE: [id number] INDICATION: Evaluation for liver transpl ant CARDIOVASCULAR [...] MD Report Verified Date/Time:01/18/2020 12:45:40 Reading Location: [address] Med Reading Room Procedure Note Interface, External Ris In - 01/18/2020 12:47 PM CDT FINAL REPORT PROCEDURE: MYOCARDIAL PERFUSION PET IMAG ING (Rest/Stress) CPT CODE: [id number] INDICATION: Evaluation for liver transpl ant CARDIOVASCULAR [...] Verified Date/Time: 01/18/2020 1 2:45:40 Reading Location: [address] P327B [facility] Reading Room Performing Organization Address City/State/Zipcode Phone [...] on 01/19/2020 7:03:55 AM Performing Organization Address City/State/[facility] Phone Number [facility] MUSE ECG 12 lead (01/18/2020 8:46 AM CDT)Only the most recent of2 resultswithin the time period is included. Specimen Narrative Performed At Ventricular Rate 62 BPM [facility] MUSE Atrial Rate 62 BPM P-R Interval 138 ms QRS Duration 86 ms Q-T Interval 452 ms QTC Calculation(Bazett) 458 ms P Gill 59 degrees R Gill 32 degrees T Gill 56 degrees Normal sinus rhythm Low voltage QRS Nonspecific ST abnormality 17 JAN 2020 11:05 Nonspecific T wave abnormality Nonspecific T wave abno rmality, improved in QT has shortened Confirmed by MD FARHAT, JESSIE ([id number]) on 01/18/2020 2:19:38 PM Procedure Note Interface, External Ris In - 01/18/2020 2:19 PM CDT Ventricular Rate 62 BPM Atrial Rate 62 BPM P-R Interval 138 ms QRS Duration 86 ms Q-T Interval 452 ms QTC Calculation(Bazett) 458 ms P Gill 59 degrees R Gill 32 degrees T Gill 56 degrees Normal sinus rhythm Low voltage QRS Nonspecific ST abnormality 17 JAN 2020 11:05 Nonspecific T wave abnormality Nonspecif ic T wave abnormality, improved in QT has shortened Confirmed by MD FARHAT, JESSIE ([id number]) on 01/18/2020 2:19:38 PM Performing Organization Address [facility] Phone Number [facility] MUSE T Spot TB (01/18/2020 6:10 AM [...] available. Performing Organization Address City/State/Zipcode Phone Number [facility] [address] [place] [address] [address] REPORT OF PROCEDURE - ENDOSCOPY URL (01/17/2020 9:11 AM CDT) Narrative Performed At This result has an attachment that is no t available. REPORT OF PROCEDURE - ENDOSCOPY URL (01/17/2020 8:39 AM CDT) Narrative Performed At This result has an attachment that is no t available. Tissue Exam (01/17/2020 8:15 AM CDT) Case Report Surgical Pathology Report Case: [id number] [facility] Authorizing Provider:Sylvie Larry MDCollected: 01/17/2020 08:15 AM [facility] Ordering Location: [address] Received:01/17/2020 01:50 PM Service Pathologist: Humaira Mendez MD Specimen:Duodenum, biopsy ADDENDUM THIS ADUODENUMIS ISSUED TO R EPORT THE FINDINGS IN THE DEEPER LEVELS OF THE BIOPSY AND GIVE THE FINAL DIAGNOSIS: [facility] DUODENUM, ENDOSCOPIC BIOPSY: - ECTATIC VESSELS IN THE LAMINA PROPRIA, SUGGE STIVE OF PORTAL DUODENOPATHY - NO FEATURES OF CELIAC DISEASE SEEN - NO GRANULOMAS, DYSPLASIA OR MALIGNANCY SEEN DIAGNOSIS DUODENUM, ENDOSCOPIC BIOPSY: [facility] - SUPERFICIAL FRAGMENTS OF SMALL BOWEL MUCOSA WITH GASTRIC FOVEOLAR METAPLASIA [facility] Signing Pathologist Direct Phone Line: CPT Code(s) [address]805 [facility] CLINICAL HISTORY Procedure: upper endoscopy, biopsy and colonosc opy [facility] Pre and postop diagnosis: anemia MEDICAL CENTER SPECIMEN SOURCE A. Duodenum; biopsy [facility] GROSS DESCRIPTION A. The specimen is received [facility] in formalin labeled with [facility] the patient's name, accession number and "duodenum" and consists of one garduno-pink mucosal-covered pieces of tissue measuring 0.3 x 0.2 x 0.1 cm. The specimen is submitted entirely following filtration in a cassette A1. HS/pl MICROSCOPIC DESCRIPTION PERFORMED [facility] Specimen Tissue Performing Organization Address City/State/Zipcode Phone Number [facility] [address] [place] [address] CENTER Lactate dehydrogenase (LDH) (01/16/2020 12:24 PM CDT) LDH 250 (H) 125 - 220 U/L [facility] Specimen Blood Narrative Performed At Media Reporter ID - TUAN C [facility] Performing Organization Address City/[facility]/Zipcode Phone Number [address] [address] [place] Vitamin B12 and Folate (01/16/2020 11:25 AM CDT) Vitamin B12 1,107 (H) 213 - 816 pg/mL [facility] Folate 3.40 (L) >=7.00 ng/mL [facility] Specimen Blood Narrative Performed At Media Reporter ID - NTP [facility] Performing Organization Address City/[facility]/Zipcode Phone Number [address] [address] [place] HIV-1 Antigen with HIV-1/2 Antibody (01/16/2020 11:25 AM CDT) HIV-1 Antigen with HIV 1&2 Nonreactive Nonreactive [facility] Specimen Blood Narrative Performed At Media Reporter ID - TUAN C [facility] Performing Organization Address City/[facility]/Zipcode Phone Number [address] [address] [place] Haptoglobin (01/16/2020 11:25 AM CDT) Haptoglobin <8 (L) 14 - 258 mg/dL [facility] Specimen Blood Narrative Performed At Media Reporter ID - TUAN C [facility] Performing Organization Address City/State/Zipcode Phone Number [address] [address] CENTER US abdominal with doppler (01/16/2020 6:30 AM CDT) Specimen Narrative Performed At FINAL REPORT Jun Group ULTRASOUND ABDOMEN COMPLETE, ULTRASOUND DUPLEX DOPPLER HISTORY: Cirrhosis, liver transplant shama luation COMPARISON: CT abdomen of 05/02/2017 TECHNIQUE: Real-time ultrasound of the a ernie was performed. Examination included spectral and color- [...] MD Report Verified Date/Time:01/16/2020 07:32:01 Reading Location: [address] Reading Room Procedure Note Interface, External [...] Verified Date/Time: 01/16/2020 0 7:32:01 Reading Location: [address] Reading Room Performing Organization Address City/[facility]/Zipcode Phone Number [employer] Drug screen, urine, transplant (01/15/2020 9:52 PM CDT) Specimen Urine Narrative Performed At This result has an attachment that is no t available. Performing Organization Address City/[facility] Phone Number [facility] [address] [place] [address] Blood typing, automated - - at seperate draw time from initial type and screen (01/15/2020 6:16 PMCDT) ABO/RH AUTOMATED (KIRK) A POSITIVE [facility] Specimen Blood Performing Organization Address City/[facility]/Zipcode Phone Number [facility] [address] [place] [address] CT chest without IV contrast (01/15/2020 5:54 PM CDT) Specimen Narrative Performed At FINAL REPORT [employer] CT of the chest, without contrast Clinical [...] MD Report Verified Date/Time:01/15/2020 17:57:54 Reading Location: [address] Reading Room Procedure Note Interface, External [...] Verified Date/Time: 01/15/2020 1 7:57:54 Reading Location: [address] [facility] s[facility] Reading Room Performing Organization Address City/State/Zipcode Phone Number [facility] XR chest 2 views (01/15/2020 4:57 PM CDT) Specimen Narrative Performed At FINAL REPORT [employer] History: Cirrhosis, liver transplant shama luation Comparison: [...] MD Report Verified Date/Time:01/15/2020 17:16:49 Reading Location: [address] [employer] [facility] Reading Room Procedure Note Interface, External Ris [...] Verified Date/Time: 01/15/2020 1 7:16:49 Reading Location: [address] Reading Room Performing Organization Address [facility] Phone Number RIS XR mandible min 4 views (01/15/2020 4:39 PM CDT) Specimen Narrative Performed At FINAL REPORT [facility] MANDIBLE 4 VIEWS HISTORY: Cirrhosis, liver transplant [...] MD Report Verified Date/Time:01/15/2020 17:22:12 Reading Location: [address] Reading Room Procedure Note Interface, External [...] Verified Date/Time: 01/15/2020 1 7:22:12 Reading Location: [address] Reading Room Performing Organization Address [facility]/Zipcode Phone Number RIS Mitochondria M2 Antibody (IgG) (01/15/2020 4:17 PM CDT) Mitochondria M2 Ab <20.0 See Note: U [facility] Comment: Reference Range: NEGATIVE:< OR = 20.0 EQUIVOCAL: 20.1-24.9 POSITIVE:> OR = 25.0 Specimen Blood Narrative Performed At Performing Lab [facility] [address] [place] [address] I Shashank ADRIAN, PhD, AMINA Performing Organization Address City/State/Zipcode Phone Number [facility], [place] [address] [facility]ATED [address] [facility] Iron, TIBC, % sat. (without ferritin) (01/15/2020 4:17 PM CDT) Iron 144.0 40.0 - 160.0 ug/dL [facility] TIBC 129 (L) 250 - 450 ug/dL [facility] Iron % Saturation 112 (H) 20 - 55 % [facility] Specimen Blood Narrative Performed At Media Reporter ID - DB [facility] Performing Organization Address [facility] Phone Number [address] [address] CENTER Hepatitis C antibody (01/15/2020 4:17 PM CDT) Hepatitis C Ab Nonreactive Nonreactive [facility] Specimen Blood Narrative Performed At Media Reporter ID - DB [facility] Performing Organization Address [facility] Phone Number [address] [address] C[place] Cytomegalovirus antibody, IgM (01/15/2020 4:17 PM CDT) CMV IGM Negative Negative, Equivocal [facility] Specimen Blood Narrative Performed At CMV IgM Result Interpretation: [facility] </= 0.8 Al Negative 0.9-1.0 Al Equivocal >/= 1.1 Al Positive Performing Organization Address [facility] Phone Number [address] [address] [place] Actin (Smooth Muscle) Antibody, [...] At Performing Lab [facility] [address] [place] [address] I Shashank ADRIAN, PhD, AMINA Performing Organization Address City/[facility]/Zipcode Phone Number [facility] [place] [address] [facility]ATED [address] [facility] Nczoc-6-dzzxfmifmdl (01/15/2020 4:17 PM CDT) A-1 Antitrypsin 121.20 90.00 - 200.00 mg/dL [facility] Specimen Blood Narrative Performed At Media Reporter ID - DB [facility] Performing Organization Address City/[facility] Phone Number [address] [address] C[place] Hepatitis A antibody, IgM (01/15/2020 4:17 PM CDT) Hep A IgM Nonreactive Nonreactive [facility] Specimen Blood Narrative Performed At Media Reporter ID - DB [facility] Performing Organization Address [facility] Phone Number [address] [address] C[place] Carbohydrate antigen 19-9 (CA 19-9) (01/15/2020 4:17 PM CDT) CA 19-9 32 <34 U/mL [facility] Comment: This test was performed using the Siemens Chemil uminescent method. Values obtained from different assay methods can not be used interchangeably. CA19-9 levels, regardless of value, should not b e interpreted as absolute evidence of the presence or absence of disease. Specimen Blood Narrative Performed At Performing Lab [facility] [address] [place] [address] Mark Encarnacion MD, PhD, AMINA Performing Organization Address [facility] Phone Number [facility] [place] [address] [facility]ATED [address] [facility] Ceruloplasmin (01/15/2020 4:17 PM CDT) Ceruloplasmin 21 18 - 53 mg/dL [facility] Specimen Blood Narrative Performed At Performing Lab [facility] *[employer] [facility], [address] [place] [phone] Jorje Jauregui MD, PhD Performing Organization Address [facility] Phone Number [facility] [place] [address] [facility]ATED [address] [facility] Zinc (01/15/2020 4:17 PM CDT) Zinc 39 (L) 60 - 130 mcg/dL [facility] Comment: [facility]POR[facility] This test was developed and its analytical perfo rmance characteristics have been determined by [employer]. It has not been cleared or approved by the FDA. This assay has been validated pursuant to t CLIA regulations and is used for clinical purposes. Specimen Blood Narrative Performed At Performing Lab [facility] *[employer] [facility], [address] [place] [phone] Jorje Jauregui MD, PhD Performing Organization Address [facility] Phone Number [facility] [place] [address] [facility]ATED [address] [facility] Alpha fetoprotein (AFP), tumor marker (01/15/2020 4:17 PM CDT)Only the most recent of2 resultswithin the time period is included. Alpha-Fetoprotein <2.0 <10.0 ng/mL [facility] Specimen Blood Narrative Performed At Media Reporter ID - DB [facility] Performing Organization Address City/[facility]/Zipcode Phone Number [address] [address] CENTER Hepatitis B core antibody, IgM (01/15/2020 4:17 PM CDT) Hep B C IgM Nonreactive Nonreactive [facility] Specimen Blood Narrative Performed At Media Reporter ID - DB [facility] Performing Organization Address City/State/Zipcode Phone Number [address] [address] [place] EBV-VCA antibody, IgM (01/15/2020 4:17 PM CDT) GABRIEL CHING VIRAL CAPSID Negative Negative, Equivocal [facility] Specimen Blood Narrative Performed At Gabriel Ching Viral Capsid Antigen IgM Result [facility] Interpretation: </= 0.8 Al Negative 0.9-1.0 Al Equivocal >/= 1.1 Al Positive Performing Organization Address [facility] Phone Number [address] [address] [place] EBV-VCA antibody, IgG (01/15/2020 4:17 PM CDT) GABRIEL CHING [facility]IR[facility] CAPSID Positive (A) Negative, Equivocal [facility] IGG [facility] Specimen Blood Narrative Performed At Gabriel Ching Viral Capsid Antigen IgG Result [facility] Interpretation: </= 0.8 Al Negative 0.9-1.0 Al Equivocal >/= 1.1 Al Positive Performing Organization Address City/[facility] Phone Number [address] [phone] [place] Hepatitis B core antibody, total (01/15/2020 4:17 PM CDT) Hep B Core Total Ab Nonreactive Nonreactive [facility] Specimen Blood Narrative Performed At Media Reporter ID - [place] F [facility] Performing Organization Address City/State/Zipcode Phone Number [address] [address] C[place] Vitamin D, 25-Hydroxy (01/15/2020 4:17 PM CDT) Vitamin D 25-Hydroxy 6.2 (L) 6.6 - 49.9 ng/mL [facility] Specimen Blood Narrative Performed At Effective 05/07/2017: Reference Range Brianna longoria [facility] New: 6.6-49.9 ng/mL Previous: 13.0-47.8 ng/mL Recommended Vitamin D Target Range: 30.0-40.0 ng/mL Media Reporter ID - DB Performing Organization Address City/[facility]/Zipcode Phone Number [address] [address] C[place] RPR (01/15/2020 4:17 PM CDT) RPR Nonreactive Nonreactive [facility] Specimen Blood Performing Organization Address [facility] Phone Number [address] [address] C[place] Hepatitis B surface antibody (01/15/2020 4:17 PM CDT) Hep B S Ab 25.0 (H) <8.0 mIU/mL [facility] Specimen Blood Narrative Performed At Media Reporter ID - DB [facility] Performing Organization Address City/[facility] Phone Number [address] [address] C[place] Hepatitis B surface antigen (01/15/2020 4:17 PM CDT) HBsAg Screen Nonreactive Nonreactive [facility] Specimen Blood Narrative Performed At Specimen is considered negative for HBsAg. [facility] Performing Organization Address [facility] Phone Number [address] [address] C[place] Cytomegalovirus antibody, IgG (01/15/2020 4:17 PM CDT) CYTOMEGALOVIRUS, IGG Positive (A) Negative, Equivocal [facility] Specimen Blood Narrative Performed At CMV IgG Result Interpretation: [facility] </= 0.8 Al Negative 0.9-1.0 Al Equivocal >/=1.1 AlPositive Performing Organization Address [facility] Phone Number [address] [address] [place] aPTT (01/15/2020 4:17 PM CDT) PTT 36.8 (H) 22.5 - 36.0 seconds [facility] Specimen Blood Performing Organization Address [facility] Phone Number [address] [address] [place] Fibrinogen (01/15/2020 4:17 PM CDT) Fibrinogen 114 (L) 225 - 434 mg/dl [facility] Specimen Blood Performing Organization Address [facility] Phone Number [address] [address] [place] Anti-Nuclear Antibody (REILLY) (01/15/2020 4:17 PM CDT) REILLY Negative Negative [facility] Specimen Blood Narrative Performed At Test performed by IFA method. [facility] Test performed by IFA method. Performing Organization Address [facility] Phone Number [address] [address] [place] T3 (01/15/2020 4:17 PM CDT) T3, Total 51 48 - 159 ng/dL [facility] Specimen Blood Narrative Performed At This result has an attachment that is no t available. Performing Organization Address [facility] Phone Number [facility] [address] [place], [place] Transferrin (01/15/2020 4:17 PM CDT) Transferrin 102 (L) 174 - 382 mg/dL [facility] Specimen Blood Narrative Performed At Media Reporter ID - DB [facility] Specimen moderately icteric Performing Organization Address City/[facility]/Zipcode Phone Number [address] [address] [place] TSH (01/15/2020 4:17 PM CDT) TSH 5.549 (H) 0.350 - 4.940 uIU/mL [facility] Specimen Blood Narrative Performed At Media Reporter ID - DB [facility] Performing Organization Address City/State/Zipcode Phone Number [address] [address] [place] T4 (01/15/2020 4:17 PM CDT) T4, Total 4.3 (L) 4.9 - 11.7 ug/dL [facility] Specimen Blood Narrative Performed At Media Reporter ID - NTP [facility] Performing Organization Address City/[facility]/Zipcode Phone Number [address] [address] C[place] Hemoglobin A1c (01/15/2020 4:17 PM CDT) Hemoglobin A1C <3.8 (L) 4.3 - 6.1 % [facility] Specimen Blood Performing Organization Address City/[facility] Phone Number [address] [address] [place] Ferritin (01/15/2020 4:17 PM CDT) Ferritin 489.86 (H) 5.00 - 275.00 ng/mL [facility] Specimen Blood Narrative Performed At Media Reporter ID - NTP [facility] Performing Organization Address City/State/Zipcode Phone Number [address] [address] [place] Carcinoembryonic Antigen (CEA) (01/15/2020 4:17 PM CDT) CEA, SERUM 7.9 (H) 0.0 - 5.0 ng/mL [facility] Specimen Blood Narrative Performed At Media Reporter ID - DB [facility] Performing Organization Address City/State/Zipcode Phone Number [address] [address] [place] Ethanol (01/15/2020 4:17 PM CDT) Ethanol Lvl <10 <=10 mg/dL [facility] Specimen Blood Narrative Performed At Media Reporter ID - DB [facility] Performing Organization Address City/[facility]/Zipcode Phone Number [address] [address] C[place] 2D Echo W/Doppler(CW/PW/Color) (01/15/2020 2:45 PM CDT) Ejection Fraction [facility] ECHO HEAR TLAB [facility] Specimen Narrative Performed At Transthoracic Echocardiography Report (T TE) [facility] ECHO HEARTLAB [facility] Demographics Patient Name CICI CALDERON Date of Study 01/15/2020 ALYSE [id number] GenderFem shalom Visit Number [id number] RaceUnkn own [id number] m Number [id number] Number Date of Birth1955 Referring Physician Ren Hernandez MD Age64 year(s) Benefit Specialist Lisa Bautista [facility] InterpretingJoseolvin Arreguin MD Physician Procedure Type [...] Study 01/15/2020 ALYSE Gender Female Visit Number [id number] Race Unknown [place] [id number] Number Date of 1955 Referri Physician Ren Hernandez MD Age 64 year(s) Sonogra pher Lisa Melhem RDCS Interpr eting Jai Arreguin MD Physici an [...] T CI: 3.67 l/min/m^2 Performing Organization Address City/State/[facility] Phone Number [facility] ECHO HEARTLAB [facility] Carotid doppler bilateral (01/15/2020 2:41 PM CDT) Ejection Fraction [facility] ECHO HEAR TLAB [facility] Specimen Impressions Performed At Right Impression [facility] ECHO HEARTLAB [facility] 1. The internal, common and external carotid [...] Performed At LAB - Carotid Duplex Study [facility] ECHO HEARTLAB [facility] Demographics Patient Shameka Tobias of Study 01/15/2020 ALYSE 64 Visit [id number] Female of 1955 Referring Eliecer Carcamo Room Number 1515 Physician Benefit Specialist Herbert maurice T Physician ADRIAN Procedure Type of Study: Cerebral: Carotid, CAROTID [...] Study 01/15/2020 ALYSE Age 64 Visit Number [id number] Gen margarita Female Accession Number [id number] Ramirez e of 1955 Referring [facility] Shady JorjeIrene Todd m Number [id number] Physician Benefit Specialist Herbert Lechuga Int erpretin Chelsea Resendez, T Alvin foss MD Procedure Type of Study: Cerebral: [...] Measurements:ICAPSV/CCAPS V 0.96.ICAEDV/CCAEDV 1.52. Performing Organization Address City/[facility] Phone Number [facility] ECHO HEARTLAB [facility] Hepatitis panel, acute (01/15/2020 8:32 AM CDT) Hep A IgM Nonreactive Nonreactive [facility] Hep B C IgM Nonreactive Nonreactive [facility] Hepatitis C Ab Nonreactive Nonreactive [facility] HBsAg Screen Nonreactive Nonreactive [facility] Specimen Blood Narrative Performed At Media Reporter ID - NTP [facility] Performing Organization Address City/[facility]/Zipcode Phone Number [address] [address] C[place] Ammonia (01/15/2020 8:32 AM CDT) Ammonia 19 18 - 72 mol/L [facility] Specimen Blood Narrative Performed At Media Reporter ID - NTP [facility] Performing Organization Address City/[facility]/Zipcode Phone Number [address] [address] [place] Uric acid (01/15/2020 3:56 AM CDT) Uric Acid 15.7 (H) 2.6 - 7.2 mg/dL [facility] Specimen Blood Narrative Performed At Media Reporter ID - NTP [facility] Specimen moderately icteric Performing Organization Address City/[facility] Phone Number [address] [phone] [place] Gamma Glutamyl Transferase (GGT) (01/15/2020 3:56 AM CDT) GGT 15 9 - 64 U/L [facility] Specimen Blood Narrative Performed At Media Reporter ID - [facility] Specimen moderately icteric Performing Organization Address [facility] Phone Number [address] [address] [place] Lipid panel (01/15/2020 3:56 AM CDT) Triglycerides 86 mg/dL [facility] Cholesterol 101 mg/dL [facility] HDL 12 mg/dL [facility] LDL Calculated 72 mg/dL [facility] Specimen Blood Narrative Performed At Triglyceride Reference Range: [facility] Low Risk <150 [id number] High Risk 200-499 Very High Risk>=500 Cholesterol Reference Range: Low Risk <200 [id number] High Risk>240 HDL Cholesterol Reference Range: Low Risk >=60 High Risk <40 LDL Cholesterol Reference Range: Optimal<100 Near Azmdoxm437-417 [id number] [id number] Very High >=190 Media Reporter ID - NTP Specimen moderately icteric Performing Organization Address City/[facility]/Zipcode Phone Number [address] [address] [place] SARS-CoV2/RT-PCR (Asymptomatic ONLY) (01/14/2020 7:28 PM CDT) SARS-COV2/RT-PCR Not Detected Not Detected, Negative [facility] SARS-COV-2 PERFORMING LAB [facility] Specimen Other Narrative Performed At Negative results do not preclude SARS-CoV-2 [facility] infection and should not be used as [...] the Act. Fact Sheet for Healthcare Providers: https://www.[employer]/Documents/Xpert%20Xpre ss%20SARS%20CoV-2/Fact%20Sheets/3023802%20SAR S-COV-2%20HEALTHCARE%20PROVIDERS%20FACT%20SHEE T.pdf Fact Sheet for Healthcare Patients: https://www.[employer]com/Documents/Xpert%20Xpre ss%20SARS%20CoV-2/Fact%20Sheets/3023801%20SAR S-COV-2%20PATIENT%20FACT%20SHEET.pdf Performing Laboratory: [address] [place] [address] Performing Organization Address City/State/Zipcode Phone Number [address] [address] CENTER after 03/06/2019 Insurance Payer Benefit Plan / Subscriber ID Type Phone Address Group AETNA - MEDICARE AETNA MEDICARE HMO xxxxxxxx [id number] [place] [phone] CDC REVIEW CDC REVIEW xxxxxxxx [place] [address] Advance Directives For more information, please contact:[place] [address] [address] IqbalMont [place], [place] [phone] Code Status Date Activated Date Inactivated Comments Full Code 01/14/2020 8:09 PM 01/26/2020 8:41 PM This code status was determined by: Patient
--- OUTSIDE RECORDS SUMMARY | 2020-03-06 13:16 | XMS REPORT | Continuity of Care Document ---
:1955 Author Organization [facility] t Address [address] [place] [address] [address] [place] [address] Care Team Providers Name Role Phone Nahun Leonard MD Primary Care Physician Alfonso Attending Clinician Unavailable Mayank ESPINOSA, R Attending Clinician Unavailable Alex Riley MD [...] Attending Clinician Tonia Stone MD Attending Clinician [place] Attending Clinician Unavailable Marie MARCUS Attending Clinician Unavailable Nallely ADRIAN Attending Clinician Zeinab Gooden Attending Clinician Vinicius ETIENNE Gotltieb Attending Clinician Doris ADRIAN Attending Clinician Aaliyah [...] MEDICARE MGD xxxxxxxx [facility] CAREAETNA MEDICARE [facility] POS Medical [phone] [facility] [id number] [address] [facility] REVIEWCDC xxxxxxxx [facility] REVIEWxxxxxxxxPO [facility] [id number] Center Problems Condition Condition Condition Status Onset Resolution Last Treating Co mments Source Name Details Category Date Date Treatment Clinician Date Acute Acute Disease Active [facility] liver liver 6-19 [facility] - failure failure 00:00: Medical 00 [place] Elevated Elevated Disease Active [facility] serum serum 16 [facility] - creatinine creatinine 00:00: Me dical [...] [facility] & Plan: Medical 00 EGD in Center March 2016 was negative for varices. Obesity Obesity Disease Active 2015-[address] (BMI ([facility] 09[facility] - 35.0-39.9 35.0-39.9 00:00: t [...] 2015-[address] [facility] - [facility] t & Plan: Medical 00 Recommend Center miralax Screening Screening Disease Active 2015-07 [facility] [address] for [facility] 09[facility] - malignant malignant 00:00: t [...] [facility] Hospital Problem Active [facility] t discharge discharge Luke s - follow-up follow-up [facility] Adrenal Adrenal Problem Active [facility] than 4 cm than 4 cm l in in Outpati diameter diameter ent Clinics Centrilobu Centrilobu Diagnosis Active [facility] - emphysema emphysema [facility]ics Allergies, Adverse Reactions, [...] Active Hives 2015-[address] [facility] [address] lines Allergy 2-05 [facility] - 00:00: Medical 00 Center Tetracyc Adverse Active hives [facility] line HCl Reaction [facility] ent [facility] Levaquin Adverse Active vomiting/jocy C HI [facility] Reaction rrhea [facility] ent Clinics Erythrom Adverse Active vomiting/jocy [facility]cin [facility] Family History Family Member Diagnosis Comments Start Date Stop Date Source Natural brother Diabetes [facility] Natural brother Hypertension [facility] Natural brother Arthritis [facility] Natural brother COPD [facility] Natural father [facility] Natural father Heart disease [facility] Natural mother [facility] Natural mother Heart disease [facility] Natural sister Cancer [facility] Social History Social Habit Start Date Stop Date Quantity Comments Source Sex Assigned At [facility] Alcohol Comment 2016-07-01 2016-07-01 social last drink I [facility] - 00:00:00 00:00:00 06/15/16 [facility] Smoking Status Start Date Stop Date Source Former smoker 2020-02-15 00:00:00 2020-02-15 00:00:00 [facility] Medications Ordered Filled Start Stop [...] hours- as antihistam ine by PCP). rifAXIMin 2019- No Hepatic 550mg Q.5D Take [address] 550 mg Tab 02-02 encephalopa tablet [facility] - 00:00: 00:00 thy (HCC) (550 mg Medi steven 00 :00 total) by Center mouth 2 (two) times daily. ergocalcife 2020- Yes [id number] Q7D Take [address] rol [...] by mouth Center tablet daily. folic acid 2019-0 2020- Yes 1mg QD Take [address] (FOLVITE) 1 01-26 tablet (1 Fe kes - MG tablet 00:00: 23:59 mg total) Me dical 00 :00 by mouth Center daily. furosemide 2020-0 2020- No 40mg Q.5D Take 40 mg [...] (241.3 mg mouth magnesium) daily. tablet lactulose 2020-0 Yes 20g Q.[id number] Take [address] (CHRONULAC) 01-25 [id number] mLs (20 g [facility] - 20 gram/30 00:00: 3D total) by In dical mL solution 00 mouth 3 Cente r (three) times daily. midodrine 2019- No 2.5mg Q.[id number] Take [address] (PROAMATINE 01-25 [id number] tablet [facility] - ) 2.5 MG 00:00: 23:59 3D (2.5 mg Medic al tablet 00 :00 total) by Center mouth 3 (three) times daily for 30 days. traMADoL No 50mg Take [address] (ULTRAM) 50 01-25 tablet (50 L ukes - mg tablet 00:00: 23:59 mg total) Me dical 00 :00 by mouth Center every 6 (six) hours as needed for up to 10 days. Max Daily Amount: 200 mg Albuterol Albuterol Yes Mitzy [address] Sulfate HFA Sulfate HFA 4-09 [place] needed [facility] - 00:00: Memoria 00 l Outpati ent Clinics Cimetidine Cimetidine Yes Mitzy [address] [facility] [place] as needed [facility] Calcitriol Calcitriol Yes Mitzy [address] [address] [facility] Lactulose Lactulose Yes Mitzy [address] [address] [place] [facility] Xifaxan Xifaxan Yes Mitzy [address] Folic Acid Folic Acid Yes Mitzy [address] Spironolact Spironolact Yes Mitzy [address] one one [place] [facility] Vitamin D2 Vitamin D2 Yes Mitzy [address] MagOx 400 MagOx 400 Yes Mitzy [address] [place] with food [facility] Tramadol Tramadol Yes Mitzy [address] HCl HCl [place] as needed [facility] Midodrine Midodrine Yes Mitzy [address] HCl HCl Reading [facility] - [facility] Pantoprazol Pantoprazol Yes Mitzy [address] e Sodium e Sodium [place] mixed with Lukes - apple Memoria juice or l applesauce [facility] ent [facility] Immunizations Ordered Filled Immunization Date Status Comments Sourc e Immunization Name Name Hepatitis A (adult) Hepatitis A (adult) 2020-02-21 Completed [facility] - 00:00:00 [facility] Hepatitis B (adult) Hepatitis B (adult) 2020-02-21 Completed [facility] - 00:00:00 [facility] Vital Signs Vital Name Observation Time Observation Value Comments Source Systolic blood 2020-02-15 10:30:00 131 mm[Hg] [facility] Diastolic blood 2020-02-15 10:30:00 78 mm[Hg] [facility] Heart rate 2020-02-15 10:30:00 98 /min [facility] Body temperature 2020-02-15 10:30:00 36.22 Shaneka [facility] Respiratory rate 2020-02-15 10:30:00 18 /min [facility] Body height 2020-02-15 10:30:00 162.6 cm [facility] Body weight Measured 2020-02-15 10:30:00 90.901 kg [facility] BMI 2020-02-15 10:30:00 34.40 kg/m2 [facility] Oxygen saturation in 2020-02-15 10:30:00 95 /min [facility] Arterial blood by Medical Ce nter Pulse oximetry Procedures Procedure Date / Time Performing Clinician Source Performed MISCELLANEOUS LAB ORDER 2020-02-15 12:29:00 Kristofer Cross [facility] MAGNESIUM 2020-02-15 12:29:00 Kristofer Cross [facility] BILIRUBIN, DIRECT 2020-02-15 12:29:00 Kristofer Cross [facility] COMPREHENSIVE METABOLIC 2020-02-15 12:29:00 Kristofer Cross [facility] PROTHROMBIN TIME/INR 2020-02-15 12:29:00 [place], Kristofer K. [facility] CBC W/PLT COUNT & AUTO 2020-02-15 12:29:00 AmericaKristofer [facility] PROTHROMBIN TIME/INR 2020-02-08 10:23:00 AmericaKristofer [facility] COMPREHENSIVE METABOLIC 2020-02-08 10:23:00 AmericaKristofer [facility] CBC W/PLT COUNT & AUTO 2020-02-08 10:23:00 AmericaKristofer [facility] BILIRUBIN, DIRECT 2020-02-08 10:23:00 AmericaKristofer [facility] PLATELET ESTIMATION 2020-02-08 10:23:00 AmericaKristofer [facility] PROTHROMBIN TIME/INR 2020-02-01 09:25:00 AmericaKristofer [facility] 2020-02-01 09:25:00 AmericaKristofer [facility] CBC W/PLT COUNT & AUTO 2020-02-01 09:25:00 AmericaKristofer [facility] BILIRUBIN, DIRECT 2020-02-01 09:25:00 AmericaKristofer theodore [facility] RHYTHM STRIP - SCAN 2020-01-27 10:00:12 Provider, Default [facility] CARDIAC CATH REPORT - SCAN 2020-01-27 10:00:07 Provider, Default [facility] TRANSFUSE LEUKO-REDUCED 2020-01-26 22:41:07 Miguel Angel, Kaylin [facility] PLATELETS [facility] METANEPHRINES 2020-01-26 14:51:00 Santikaleann Blanca [facility] HEPATIC FUNCTION PANEL 2020-01-26 03:50:00 [place] [facility] PROTHROMBIN TIME/INR 2020-01-26 03:50:00 Galdino Roscoe [facility] CALCIUM, IONIZED 2020-01-26 03:50:00 Russ Ha [facility] COMPREHENSIVE METABOLIC 2020-01-26 03:50:00 [facility] PHOS[facility]US 2020-01-26 03:50:00 [facility] MAGNESIUM 2020-01-26 03:50:00 [facility] CBC W/PLT COUNT & AUTO 2020-01-26 03:50:00 Florian Kinney [facility] HEPATIC FUNCTION PANEL 2020-01-25 03:47:[address] [facility] PROTHROMBIN TIME/INR 2020-01-25 03:47:00 [facility] BASIC METABOLIC PANEL (7) 2020-01-25 03:47:00 [facility] MAGNESIUM 2020-01-25 03:47:00 [facility] CBC W/PLT COUNT & AUTO 2020-01-25 03:47:00 Florian Kinney [facility] (CELLAVISION MANUAL DIFF) 2020-01-25 03:47:00 Florian Kinney [facility] TRANSFUSION SERVICE REPORT 2020-01-24 18:00:13 Provider, [facility] - - SCAN [facility] PULMONARY FUNCTION - SCAN 2020-01-24 13:10:09 Provider, [facility] SPIROMETRY 2020-01-24 10:41:00 [facility] DLCO (SINGLE BREATH 2020-01-24 10:41:00 [facility] - DIFFUSION) [facility] LUNG VOLUMES 2020-01-24 10:41:00 [facility] 6 MINUTE WALK(FOR LUNG 2020-01-24 10:20:00 [facility] - TRANSPLANT ONLY) [facility] HEPATIC FUNCTION PANEL 2020-01-24 03:57:[address] [facility] PROTHROMBIN TIME/INR 2020-01-24 03:57:00 [facility] CALCIUM, IONIZED 2020-01-24 03:57:00 Kermit Nicole [facility] PHOSPHORUS 2020-01-24 03:57:00 Kermit Nicole [facility] BASIC METABOLIC PANEL (7) 2020-01-24 03:57:00 Leena Arias [facility] MAGNESIUM 2020-01-24 03:57:00 [facility] CBC W/PLT COUNT & AUTO 2020-01-24 03:57:00 [facility] [facility] PREPARE LEUKO-REDUCED RBC 2020-01-23 23:54:[address] [facility] TRANSFUSION SERVICE REPORT 2020-01-23 18:00:37 Provider, Default [facility] HEPATIC FUNCTION PANEL 2020-01-23 04:32:00 [place] [facility] PROTHROMBIN TIME/INR 2020-01-23 04:32:00 [place] [facility] B-TYPE NATRIURETIC FACTOR 2020-01-23 04:32:00 Kermit Nicole [facility] (BNP) [facility] CALCIUM, IONIZED 2020-01-23 04:32:00 Kermit Nicole [facility] PHOSPHORUS 2020-01-23 04:32:00 Kermit Nicole [facility] BASIC METABOLIC PANEL (7) 2020-01-23 04:32:00 [facility] MAGNESIUM 2020-01-23 04:32:00 [facility] CBC W/PLT COUNT & AUTO 2020-01-23 04:32:00 Leena Arias [facility] (CELLAVISION MANUAL DIFF) 2020-01-23 04:32:00 Leena Arias [facility] PREPARE LEUKO-REDUCED 2020-01-22 23:54:00 Kaylin Michelle [facility] PLATELETS [facility] TRANSFUSION SERVICE REPORT 2020-01-22 18:01:00 Provider, Default [facility] TRANSFUSE LEUKO-REDUCED RED 2020-01-22 14:30:53 Vitor Orozco [facility] - BLOOD CELLS [facility] CORTISOL 2020-01-22 08:23:00 Ismaily, [facility] CALCIUM, IONIZED 2020-01-22 04:35:[address] [facility] HEPATIC FUNCTION PANEL 2020-01-22 04:35:[address] [facility] BASIC METABOLIC PANEL (7) 2020-01-22 04:35:00 [facility] MAGNESIUM 2020-01-22 04:35:00 [facility] CBC W/PLT COUNT & AUTO 2020-01-22 04:35:00 [place] [facility] (CELLAVISION MANUAL DIFF) 2020-01-22 04:35:00 [facility] PROTHROMBIN TIME/INR 2020-01-22 04:34:00 [facility] DIRECT AHG (KRISTI)/DIRECT 2020-01-22 04:34:00 Gregory [facility] ABORH, MANUAL 2020-01-22 04:34:00 Gregory [facility] TRANSFUSION SERVICE REPORT 2020-01-21 18:00:48 [facility] BODY FLUID CULTURE + GRAM 2020-01-21 16:54:00 Miguel Angel, Kaylin [facility] BODY FLUID CELL COUNT WITH 2020-01-21 16:54:00 Miguel Angel, Kaylin C [facility] US PARACENTESIS 2020-01-21 16:40:00 [facility] MISCELLANEOUS LAB ORDER 2020-01-21 09:31:00 Issrikanth [facility] HEPATIC FUNCTION PANEL 2020-01-21 09:31:[address] [facility] PROTHROMBIN TIME/INR 2020-01-21 09:31:00 [facility] COMPREHENSIVE METABOLIC 2020-01-21 09:31:00 [facility]eland [facility] PHOSPHORUS 2020-01-21 09:31:00 [facility] MAGNESIUM 2020-01-21 09:31:00 [facility] CORTISOL 2020-01-21 09:31:00 EddiesrikanthChristine [facility] RETICULOCYTE COUNT 2020-01-21 09:31:00 Gregory Oumou [facility] PERIPHERAL BLOOD SMEAR - 2020-01-21 09:31:00 Miguel Angel, Kaylin [facility] CBC W/PLT COUNT & AUTO 2020-01-21 09:31:00 Leland [facility] XR CHEST 1 VIEW 2020-01-21 09:10:00 Ha [facility] PORTABLE/BEDSIDE [facility] METANEPHRINES, 24 HOUR 2020-01-20 22:51:00 [facility] URINE [facility] CATECHOLAMINES, 2020-01-20 22:51:00 [place] [facility] - FRACTIONATED, 24HR URINE Medical Center TYPE AND SCREEN, AUTOMATED 2020-01-20 20:39:00 Miguel Angel, Kaylin [facility] XR CHEST 1 VIEW 2020-01-20 20:28:00 [facility]/BEDSIDE [facility] TRANSFUSION SERVICE REPORT 2020-01-20 18:01:30 Bozena Lopes [facility] - - SCAN Scanning [facility] MR ABDOMEN WITHOUT IV 2020-01-20 17:54:00 [facility] CONTRAST [facility] HEPATIC FUNCTION PANEL 2020-01-20 04:10:00 [place] [facility] PROTHROMBIN TIME/INR 2020-01-20 04:10:00 [facility] CALCIUM, IONIZED 2020-01-20 04:10:00 Leland [facility] COMPREHENSIVE METABOLIC 2020-01-20 04:10:00 [facility] PHOSPHORUS 2020-01-20 04:10:00 [facility] MAGNESIUM 2020-01-20 04:10:00 [facility] CBC W/PLT COUNT & AUTO 2020-01-20 04:10:00 Russ Ha [facility] (CELLAVISION MANUAL DIFF) 2020-01-20 04:10:00 Russ Ha [facility] PREPARE LEUKO-REDUCED RBC 2020-01-19 23:54:00 Miguel Angel, Kaylin [facility] URINALYSIS W/ MICROSCOPIC 2020-01-19 23:19:00 Leland [facility] SODIUM, RANDOM URINE 2020-01-19 23:19:00 [facility] BLOOD CULTURE 2020-01-19 21:45:00 Gald[facility] BLOOD CULTURE 2020-01-19 21:44:00 [place] [facility] [id number] 2020-01-19 21:43:00 Kristofer Cross [facility] TRANSFUSION SERVICE REPORT 2020-01-19 18:01:08 Bozena Lopes [facility] SCAN [facility] BLOOD GAS, ARTERIAL 2020-01-19 15:44:00 Kristofer Cross [facility] CRYPTOCOCCAL ANTIGEN 2020-01-19 15:04:00 Kristofer Cross [facility] MUMPS ANTIBODY, IGG 2020-01-19 15:04:00 AmericaKristofer theodore [facility] RUBELLA ANTIBODY, IGG 2020-01-19 15:04:00 AmericaKristofer theodore [facility] RUBEOLA ANTIBODY IGG 2020-01-19 15:04:00 AmericaKristofer theodore [facility] VARICELLA ZOSTER ANTIBODY, 2020-01-19 15:04:00 Kristofer Cross [facility] R & L CATH / CORONARY 2020-01-19 13:47:00 Brian Browning [facility] ANGIOS (+/- LV) [facility] PROTHROMBIN TIME/INR 2020-01-19 11:00:00 Roscoe Ahmadi [facility] US BREAST BILATERAL 2020-01-19 09:10:00 Kristofer Cross [facility] HEPATIC FUNCTION PANEL 2020-01-19 04:11:00 [place] [facility] CALCIUM, IONIZED 2020-01-19 04:11:00 Leland [facility] COMPREHENSIVE METABOLIC 2020-01-19 04:11:00 [facility] 2020-01-19 04:11:00 [facility] B-TYPE NATRIURETIC FACTOR 2020-01-19 04:11:00 Leland [facility] (BNP) [facility] ALDOSTERONE 2020-01-19 04:11:00 [facility] RENIN, PLASMA 2020-01-19 04:11:00 King Rehan [facility] METANEPHRINES 2020-01-19 04:11:00 King Rehan [facility] MAGNESIUM 2020-01-19 04:11:00 [facility] CBC W/PLT COUNT & AUTO 2020-01-19 04:11:00 [facility] WITHOUT IV 2020-01-19 00:40:00 [place] CONTRAST [facility] US RENAL COMPLETE 2020-01-19 00:20:00 [place] [facility] PREPARE LEUKO-REDUCED 2020-01-18 23:54:00 Ju[facility] PLATELETS [facility] URINALYSIS W/ MICROSCOPIC 2020-01-18 20:49:00 Leland [facility] SODIUM, RANDOM URINE 2020-01-18 20:49:00 [facility] PROTEIN, RANDOM URINE 2020-01-18 20:49:00 [facility] CREATININE, RANDOM URINE 2020-01-18 20:49:00 [facility] EOSINOPHIL SMEAR, URINE 2020-01-18 20:49:00 [facility] TRANSF[facility]ION SERV[facility] REPORT 2020-01-18 18:31:51 Provider [facility] - - SCAN Scanning [facility] TRANSFUSE LEUKO-REDUCED RED 2020-01-18 13:21:26 Miguel Angel [facility] BLOOD CELLS [facility] NM MYOCARDIAL PERFUSION 2020-01-18 09:20:00 [facility]ESS[facility] Medical C enter TREADMILL 2020-01-18 08:57:35 Unknown, Hl7 Doctor [facility](NON-NUCLEAR Medical Ce nter TREADMILL) ECG 12-LEAD 2020-01-18 08:46:42 Unknown, Hl7 [facility] BASIC METABOLIC PANEL (7) 2020-01-18 06:10:00 [facility] MAGNESIUM 2020-01-18 06:10:00 [facility] T SPOT TB 2020-01-18 06:10:00 Miguel Angel [facility] HEPATIC FUNCTION PANEL 2020-01-18 06:10:00 Roscoe Ahmadi [facility] CBC W/PLT COUNT & AUTO 2020-01-18 06:10:00 [place] [facility] (CELLAVISION MANUAL DIFF) 2020-01-18 06:10:00 [facility] ECG 12-LEAD 2020-01-17 11:05:03 Brian Browning [facility] REPORT OF PROCEDURE - 2020-01-17 09:11:05 Doris [facility] ENDOSCOPY [facility] REPORT OF PROCEDURE - 2020-01-17 08:39:23 Doris [facility] TISSUE EXAM 2020-01-17 08:15:[address] [facility] TRANSFUSE LEUKO-REDUCED 2020-01-17 08:04:58 Juana [facility] PLATELETS [facility] UPPER ENDOSCOPY,BIOPSY 2020-01-17 08:00:00 Doris [facility] COLONOSCOPY 2020-01-17 08:00:[address] [facility] PROTHROMBIN TIME/INR 2020-01-17 03:56:00 Mary Roper [facility] BASIC METABOLIC PANEL (7) 2020-01-17 03:56:00 Leena Arias [facility] MAGNESIUM 2020-01-17 03:56:00 [facility] CBC W/PLT COUNT & AUTO 2020-01-17 03:56:00 [facility] [facility] (CELLAVISION MANUAL DIFF) 2020-01-17 03:56:00 Leena Arias [facility] TRANSFUSION SERVICE REPORT 2020-01-16 18:00:27 [facility] BLOOD CULTURE 2020-01-16 12:25:00 Shady Gonzáles [facility] LACTATE DEHYDROGENASE (LDH) 2020-01-16 12:24:00 [facility] RETICULOCYTE COUNT 2020-01-16 12:23:00 Iván [facility] BLOOD CULTURE 2020-01-16 11:25:00 Shady Gonzáles [facility] HIV-1 ANTIGEN WITH HIV-1/2 2020-01-16 11:25:00 Shady Gonzáles [facility] VITAMIN B12 AND FOLATE 2020-01-16 11:25:00 Iván [facility] HAPTOGLOBIN 2020-01-16 11:25:00 [facility] US ABDOMINAL WITH DOPPLER 2020-01-16 06:30:00 [facility]/INR 2020-01-16 03:38:00 Graciela Stone [facility] HEPATIC FUNCTION PANEL 2020-01-16 03:38:00 [facility] BASIC METABOLIC PANEL (7) 2020-01-16 03:38:00 Leena Arias [facility] MAGNESIUM 2020-01-16 03:38:00 [facility] CBC W/PLT COUNT & AUTO 2020-01-16 03:38:00 Leena Arias [facility] DRUG SCREEN, URINE, 2020-01-15 21:52:00 EliecerShady davidson [facility] TRANSPLANT [facility] BLOOD TYPING, AUTOMATED 2020-01-15 18:16:00 EliecerShady davidson [facility] CT CHEST WITHOUT IV 2020-01-15 17:54:00 EliecerShady davidson [facility] CONTRAST [facility] XR CHEST 2 VIEWS 2020-01-15 16:57:00 EliecerShady morales [facility] XR MANDIBLE 4 VIEWS MIN 2020-01-15 16:39:00 Shady Gonzáles [facility] VITAMIN D, 25-HYDROXY 2020-01-15 16:17:00 EliecerShady davidson [facility] COMPREHENSIVE METABOLIC 2020-01-15 16:17:00 EliecerShady davidson [facility] BILIRUBIN, DIRECT 2020-01-15 16:17:00 EliecerShady morales [facility] CALCIUM, IONIZED 2020-01-15 16:17:00 EliecerShady morales [facility] ZINC 2020-01-15 16:17:00 EliecerShady davidson [facility] ANTI-NUCLEAR ANTIBODY (REILLY) 2020-01-15 16:17:00 EliecerShady davidson [facility] ACTIN (SMOOTH MUSCLE) 2020-01-15 16:17:00 EliecerShady davidson [facility] ANTIBODY, IGG [facility] MITOCHONDRIA M2 ANTIBODY 2020-01-15 16:17:00 EliecerShady morales [facility] (IGG) [facility] IRON, TIBC, % SAT. (WITHOUT 2020-01-15 16:17:00 EliecerShady morales [facility] FERRITIN) [facility] FERRITIN 2020-01-15 16:17:00 EliecerShady davidson [facility] TRANSFERRIN 2020-01-15 16:17:00 EliecerShady davidson [facility] [id number]\\, SERUM 2020-01-15 16:17:00 Shady Gonzáles [facility] CERULOPLASMIN 2020-01-15 16:17:00 Shady Gonzáles [facility] ALPHA FETOPROTEIN (AFP), 2020-01-15 16:17:00 Shady Gonzáles [facility] TUMOR MARKER [facility] CARCINOEMBRYONIC ANTIGEN 2020-01-15 16:17:00 Shady Gonzáles [facility] (CEA) [facility] CARBOHYDRATE ANTIGEN 19-9 2020-01-15 16:17:00 Shady Gonzáles [facility] (CA 19-9) [facility] HEMOGLOBIN A1C 2020-01-15 16:17:00 Shady Gonzáles [facility] TSH 2020-01-15 16:17:00 Shady Gonzáles [facility] T3 2020-01-15 16:17:00 Shady Gonzáles [facility] T4 2020-01-15 16:17:00 Shady Gonzáles [facility] ETHANOL 2020-01-15 16:17:00 Shady Gonzáles [facility] FIBRINOGEN 2020-01-15 16:17:00 Shady Gonzáles [facility] PROTHROMBIN TIME/INR 2020-01-15 16:17:00 Shady Gonzáles [facility] APTT 2020-01-15 16:17:00 Shady Gonzáles [facility] HEPATITIS A ANTIBODY, IGM 2020-01-15 16:17:00 Shady Gonzáles [facility] HEPATITIS B SURFACE ANTIGEN 2020-01-15 16:17:00 Shady Gonzáles [facility] HEPATITIS B SURFACE 2020-01-15 16:17:00 Shady Gonzáles [facility] ANTIBODY [facility] HEPATITIS B CORE ANTIBODY, 2020-01-15 16:17:00 Shady Gonzáles [facility] TOTAL [facility] HEPATITIS B CORE ANTIBODY, 2020-01-15 16:17:00 Shady Gonzáles [facility] IGM [facility] HEPATITIS C ANTIBODY 2020-01-15 16:17:00 Shady Gonzáles [facility] RPR 2020-01-15 16:17:00 Shady Gonzáles [facility] CYTOMEGALOVIRUS ANTIBODY, 2020-01-15 16:17:00 Shady Gonzáles [facility] IGG [facility] CYTOMEGALOVIRUS ANTIBODY, 2020-01-15 16:17:00 Shady Gonzáles [facility] IGM [facility] EBV ANTIBODY, IGM 2020-01-15 16:17:00 Shady Gonzáles [facility] TYPE AND SCREEN, AUTOMATED 2020-01-15 16:17:00 Shady Gonzáles [facility] 2D ECHO W/ DOPPLER 2020-01-15 14:45:25 Ren Hernandez [facility] (CW/PW/COLOR) [facility] CAROTID DOPPLER BILATERAL 2020-01-15 14:41:00 Shady Gonzáles [facility] SODIUM, RANDOM URINE 2020-01-15 12:46:00 [facility] CREATININE, RANDOM URINE 2020-01-15 12:46:00 Graciela Stone [facility] AMMONIA 2020-01-15 08:32:00 Graciela Stone [facility] HEPATITIS PANEL, ACUTE 2020-01-15 08:32:00 Graciela Stone [facility] BASIC METABOLIC PANEL (7) 2020-01-15 03:56:00 Graciela Stone [facility] PROTHROMBIN TIME/INR 2020-01-15 03:56:00 Graciela Stone [facility] HEPATIC FUNCTION PANEL 2020-01-15 03:56:00 Graciela Stone [facility] MAGNESIUM 2020-01-15 03:56:00 Graciela Stone [facility] URIC ACID 2020-01-15 03:56:00 [facility] GLUTAMYL TRANSFERASE 2020-01-15 03:56:00 Shady Gonzáles [facility] (GGT) [facility] PHOSPHORUS 2020-01-15 03:56:00 [facility] LIPID PANEL 2020-01-15 03:56:00 [facility] CBC W/PLT COUNT & AUTO 2020-01-15 03:56:[address] [facility] (CELLAVISION MANUAL DIFF) 2020-01-15 03:56:00 Graciela Stone [facility] BASIC METABOLIC PANEL (7) 2020-01-14 21:59:00 Graciela Stone [facility] PROTHROMBIN TIME/INR 2020-01-14 21:59:00 Graciela Stone [facility] HEPATIC FUNCTION PANEL 2020-01-14 21:59:00 Graciela Stone [facility] CBC W/PLT COUNT & AUTO 2020-01-14 21:59:[address] [facility] SARS-COV2/RT-PCR ([facility] & 2020-01-14 19:28:00 Tameka Hunter [facility] - REF LABS) [facility] BASIC METABOLIC PANEL (7) 2020-01-03 14:34:[address] [facility] HEPATIC FUNCTION PANEL 2020-01-03 14:34:00 Larry [facility] PROTHROMBIN TIME/INR 2020-01-03 14:34:00 [facility] ALPHA FETOPROTEIN (AFP), 2020-01-03 14:34:00 [facility] - TUMOR MARKER [facility] CBC W/PLT COUNT & AUTO 2020-01-03 14:34:00 [facility] Plan of Care Planned Activity Planned Date Details Comments Source Future Scheduled 2030-01-[address] [facility] 00:[facility]00 [facility] (procedure) [code = 628009613] Future Scheduled 2023-01-[address] [facility] Test 00:00[facility]00 (procedure) [code = Medical Center 19140964] Future Scheduled 2020-03-28 INFLUENZA VACCINE (#1) [facility]00 [code = INFLUENZA Medical Ce nter VACCINE (#1)] Future Scheduled 2020-02-26 INFLUENZA VACCINE [place] [facility] 00:00:00 [code = INFLUENZA VACCINE] Future Scheduled 2019-07-28 Medicare IPPE (WELCOME [facility] Test 00:00:00 TO MEDICARE) [code = Medical Center Medicare IPPE (WELCOME TO MEDICARE)] Future Scheduled 2019 65+ PNEUMOCOCCAL [place] [facility] Test 00:00:00 VACCINE (1 of 2 - PCV13) [code = 65+ PNEUMOCOCCAL VACCINE (1 of 2 - PCV13)] Future Scheduled 2019 P[address]UMOCOCCAL [address] - Test 00:00:00 LOW/MEDIUM RISK (1 of Medica l Center 2 - PCV13) [code = PNEUMOCOCCAL 65+ LOW/MEDIUM RISK (1 of 2 - PCV13)] Future Scheduled 2004 BREAST CANCER [place] [facility] Test 00:00:00 SCREENING [code = BREAST CANCER SCREENING] Future Scheduled 2004 COLONOSCOPY SCREENING Ho [facility] Test 00:00:00 [code = COLONOSCOPY SCREENING] Future Scheduled 2004 SHINGLES VACCINES (#1) [facility] Test 00:00:00 [code = SHINGLES VACCINES (#1)] Future Scheduled 1975 Screening for [facility] Test 00:00:00 malignant neoplasm of cervix (procedure) [code = 623285508] Future Scheduled [address] [facility] Test 00:00:00 malignant neoplasm of Medica l Center cervix (procedure) [code = 648017903] Future Scheduled [address] [facility] Test 00:00:00 [facility] breast (procedure) [code = 049927169] Encounters Start End Encounter Admission Attending Care Care Encounter Source Date/Time Date/Time Type Type Clinicians Facility Department ID 2020-02-21 2020-02-21 [facility] [id number] 16:00[facility]00 16:00:00 [facility] Medicine Medicine Outpati ent Clinics 2020-02-14 2020-02-14 [facility] [id number] 10:00:00 10:00:00 t [facility] Medicine l Medicine Outpati ent Clinics 2020-02-03 2020-02-03 [facility] [id number] 11:48:00 11:48:00 [facility] Medicine l Medicine Outpati ent Clinics 2020-01-13 2020-01-13 [facility] [id number] 14:40:00 14:40:00 [facility] Medicine Outpati ent Clinics 2020-01-03 2020-01-03 [place] [id number] 00:00:00 00:00:00 of [facility] Emergency Department Aye [place] [id number] [place] [id number] 2019-12-28 2019-12-31 [facility] AnnanjYahir [facility] [id number] 21:39:45 13:10:00 Encounter Jacklyn Lewis [id number] [place] [id number] [place] [id number] 2019-11-03 2019-11-03 [facility] [id number] 13:20:00 13:20:00 [facility] Medicine Outpati ent Clinics 2019-09-10 2019-09-10 [facility] [id number] 09:30:00 09:30:00 [facility] Medicine Outpati ent Clinics 2019-08-31 2019-08-31 [facility] [id number] 08:00:00 08:00:00 [facility] Medicine Outpati ent Clinics 2019-08-24 2019-08-24 Outpatient Rafia Sanford [id number] 10:41:00 10:41:00 [facility] 2019-08-19 2019-08-19 Outpatient Rafia Sanford [id number] 13:00:00 13:00:00 [facility] Results Test Description Test Time Test Comments Results Result Comments Source MISCELLANEOUS LAB ORDER 2020-02-23 12:14:00 Test Item Value Reference Range Interpretation Comme nts SCAN RESULT (test code = 5047465) Miscellaneous lab [id number] 12:14:00Scan ResultQUEST NON-INTERFACED [facility] [id number] 13:17:00 Test Item Value Reference Range Interpretation Comments Protein, Total (test 6.5 6.0- 8.3 gm/dL code = 2885-2) Albumin (test code = 3.2 g/dL 3.5-5 L 14621-3) Alkaline Phosphatase 107 U/L 40-150 (test code = 6768-6) Total Bilirubin (test 7.4 mg/dL 0.2-1.2 H code = 1974-2) Sodium (test code = 140 meq/L 537-270 1686-2) Potassium (test code 4.1 meq/L 3.5-5.1 = 2823-3) Chloride (test code = 107 meq/L 98-107 2075-0) CO2 (test code = 26 meq/L 22-29 2027-9) BUN (test code = 23 mg/dL 7-21 H 3094-0) Creatinine (test code 1.33 mg/dL 0.57-1.25 H = 2160-0) Glucose (test code = 87 mg/dL 70-105 5-7) Calcium (test code = 9.5 mg/dL 8.4-10.2 49761-4) AST (test code = 39 U/L 5-34 H 1920-8) ALT (test code = 16 U/L 6-55 1742-6) EGFR (test code = 40 mL/min/1.73 [place] [address]-0) NOT ACCURATE CREATININE CLEARANCE IN PREDICTING GLOMERULAR FILTRATION RATE . ESTIMATED GFR I S NOT APPLICABLE FOR DIALYSIS PATIENTS. VALENTE (test code = VALENTE) Master Certified Rv Technician ID - LMSpecimen moderately icteric Lab Interpretation Abnormal (test code = 46100-4) [facility], [id number] 13:17:00 Test Item Value Reference Range Interpretation Comments Bilirubin, Direct (test code 2.5 mg/dL 0.1-0.5 H = 1967-7) VALENTE (test code = VALENTE) Master Certified Rv Technician ID - LM Lab Interpretation (test Abnormal code = 12737-3) [facility]2020-07-21 13:17:00 Test Item Value Reference Range Interpretation Comments Magnesium (test code = 1.8 mg/dL 1.6-2.6 09801-6) VALENTE (test code = VALENTE) Master Certified Rv Technician ID - LM Lab Interpretation (test Normal code = 68038-1) [facility]IUM2020-07-21 13:17:00 Test Item Value Reference Range Interpretation Comments MAGNESIUM (BEAKER) (test code = 1.8 mg/dL 1.6-2.6 627) Master Certified Rv Technician ID - LMCOMPREHENSIVE METABOLIC [id number] 13:17:00 Test Item Value Reference Range Interpretation [...] S NOT APPLICABLE FOR DIALYSIS PATIEN TS. Master Certified Rv Technician ID - LMSpecimen moderately ictericBILIRUBIN, [id number] 13:17:00 Test Item Value Reference Range Interpretation Comments BILIRUBIN DIRECT (BEAKER) (test 2.5 mg/dL 0.1-0.5 H code = 706) Master Certified Rv Technician ID - LMProthrombin time/[id number] 13:05:00 Test Item Value Reference Range Interpretation [...] valves. Lab Interpretation Abnormal (test code = 01594-3) [facility] DistrictPROTHROMBIN TIME/[id number] 13:05:00 Test Item Value Reference Range Interpretation [...] heart valves.CBC with platelet count + automated [id number] 12:59:00 Test Item Value Reference Range Interpretation [...] K/CU MM L MPV (test code = 67826-3) 10.0 fL 9.4-12.3 nRBC (test code = [...] 2801) Lab Interpretation (test code = Abnormal 99688-9) [facility] W/PLT COUNT & AUTO [id number] 12:59:00 Test Item Value Reference Range Interpretation [...] 2801) CBC with platelet count + automated [id number] 15:30:00 Test Item Value Reference Interpretation Comments [...] MPV (test code = 10.4 fL 7.5-12.5 4839513) # Neutros (test 1128 1,500 - 7,800 [...] % Lymphs (test code 26.7 % = 20200217) % Monos (test code 11.9 % = ) % Eos (test code = 4.5 % 20200215) % Baso (test code = 0.5 % 20200216) Comment(s) (test Review of t he code = 20200222) peripheral s mear revealsdecrease d numbers of platelets. VALENTE (test code = FASTING:YESFASTIN VALENTE) G: YES RAC (test code = Performing RAC) Organization Information: Site ID: RGA Name: [facility] Address: [address] [place] [id number] Director: Alonso Carrasco Lab Interpretation Abnormal (test code = 89049-5) [facility] DistrictPLATELET [id number] 15:30:00 Test Item Value Reference Range Interpretation Comments Platelet Estimate (test DECREASED ADEQUATE A code = 93622-3) VALENTE (test code = VALENTE) FASTING:YESFASTING: YES RAC (test code = RAC) Performing Organization Information: Site ID: JOSHUA [facility] Address: [address] [place] [phone] Director: Alonso Carrasco Lab Interpretation (test Abnormal code = 07687-3) [facility] District[facility]anephrines2020-07-06 10:36:00 Test Item Value Reference Interpretation Comments Range Metanephrine (test 46 pg/mL < OR = 57 This mushtaq t was developed code = 9728926) and its anal ytical performance characteristics havebeen determined by Red LaGoon [facility] Analyze [facility].It h as not been cleared or appr jean-claude by FDA. This assay has been validatedpursua nt to the CLIA regulation s and is used for clinic al purposes. Normetanephrine 213 pg/mL < OR = 148 H This test w as developed (test code = and its analyti steven 0524567) performance characteristics havebeen determined by Red LaGoon [facility].It h as not been cleared or appr jean-claude by FDA. This assay has been validatedpursua nt to the CLIA regulation s and is used for clinic al purposes. Total Metanephrine 259 pg/mL < OR = 205 H Elevatio ns > 4-fold upper (test code = reference range : strongly 2706634) suggestive of apheochromocyto ma(1). Elevations >1 - 4-fold upper reference range:significa nt but not diagnostic, may be due to medications or stress. Suggestrunning 24 hr urine fractionated me tanephrines and serum Chrom ogranin A forconfirmation . Reference: (1) Latrice Lorenz et gonzález, [employer] Chief Creative Officer mogranin A or Urine FractionatedMet anephrines Follow-Up Testi ng Improves the Diagnostic Accuracy of PlasmaFractiona madai Metanephrines f or Pheochromocytom a. The Journal of ClinicalEndocri nology and Metabolism 93 ( 1),91-95, 2007. For addit ional information, pl ease refer tohttp://educat ion.[employer].StartSampling/f aq/MetFract Free(This link is being provided for informational/e ducational purposes only.) This test was developed a nd its analytical perf ormance characteristics havebeen determined by [facility].It h as not been cleared or appr jean-claude by FDA. This assay has been validatedpursua nt to the CLIA regulation s and is used for clinic al purposes. VALENTE (test code = Performing Lab VALENTE) EZ [facility] [address] [place] [address] Mark Encarnacion MD, PhD, AMINA Lab Interpretation Abnormal (test code = 46047-4) [facility] DistrictCatecholamines, Fractionated, 24hr [id number] 11:55:00 Test Item Value Reference Interpretation Comments Range TOTAL VOLUME (test 1000 mL code = 6918914) Epinephrine,24 Hr <2 2- 24 mcg/24 h L Result b elow clinical Ur (test code = reportable r von for ) this analyte, w hich is 2 mcg/L.Repo rted result was calc ulated using 2 mcg/L. This test was develo ped and its analyti steven performance characteristics havebeen determ ined by [facility] .It has not been cl eared or approved by FDA. This assay has been validatedpursua nt to the CLIA regula tions and is used for clinical purpos es. Norepinephrine 9 15- 100 mcg/24 L This test was (test code = h developed and i ts 3351061) analytical performance characteristics havebeen determ ined by [facility] .It has not been cl eared or approved by FDA. This assay has been validatedpursua nt to the CLIA regula tions and is used for clinical purpos es. Calculated Total 9 26- 121 mcg/24 L This mushtaq t was E+Ne (test code = h developed and its 20190907) analytical performance characteristics havebeen determ ined by [facility] [...] steven performance characteristics havebeen determ ined by [facility] .It has not been cl eared or approved by FDA. This assay has been validatedpursua nt to the CLIA regula tions and is used for clinical purpos es. Creatinine,24 Hr 0.88 0.50- 2.15 Urin (test code = g/24 h ) VALENTE (test code = Performing Lab VALENTE) [facility] [address] [place] [address] Mark Encarnacion MD, PhD, AMINA Lab Interpretation Abnormal (test code = 71808-8) [facility] DistrictMISCELLANEOUS LAB [id number] 12:33:00 Test Item Value Reference Range Interpretation Comments SCAN RESULT (test code = 3414296) [id number] 16:28:00 Test Item Value Reference Range Interpretation Comments Lab Interpretation (test code = Normal 75747-1) [facility] DistrictMetanephrines, 24 hour [id number] 12:57:00 Test Item Value Reference Interpretation Comments Range TOTAL VOLUME (test 1000 mL code = 8331549) Metanephrine (test 205 90- 315 This mushtaq t was code = 7662399) mcg/24 h developed an d its analytical perf ormance characteristics havebeen determ ined by [facility] .It has not been cleare d or approved by FDA . This assay has been validatedpursua nt to the [facility]ula [facility] and is used for clinical purpos es. Normetanephrine 657 122- 676 This test w as (test code = mcg/24 h developed and i ts 1497187) analytical perf ormance characteristics havebeen determ ined by [facility] .It has not been cleare d or approved by FDA . This assay has been validatedpursua nt to the [place] [facility]ula [facility] and is used for clinical purpos es. [...] perf ormance characteristics havebeen determ ined by [facility] .It has not been cleare d or approved by FDA . This assay has been validatedpursua nt to the [place] [facility]ula [facility] and is used for clinical purpos es. VALENTE (test code = Performing Lab VALENTE) EZ [facility] [address] [place] [address] Mark Encarnacion MD, PhD, AMINA Lab Interpretation Abnormal (test code = 87370-2) [facility] DistrictCalcium, [id number] 05:42:00 Test Item Value Reference Range Interpretation Comments Calcium, Ion (test code = 1993-) 1.11 mmol/L 1.12-1.27 L pH, Blood (test code = 87819-0) 7.41 Lab Interpretation (test code = Abnormal 84418-8) [facility] DistrictCALCIUM, [id number] 05:42:00 Test Item Value Reference Range Interpretation Comments CALCIUM IONIZED (BEAKER) (test 1.11 mmol/L 1.12-1.27 L code = 698) PH, BLOOD (BEAKER) (test code = 7.41 1810) COMPREHENSIVE METABOLIC [id number] 04:57:00 Test Item Value Reference Range Interpretation [...] S NOT APPLICABLE FOR DIALYSIS PATIEN TS. Master Certified Rv Technician ID - BSSpecimen moderately ictericHepatic function [id number] 04:53:00 Test Item Value Reference Range Interpretation Comments Protein, Total (test code 5.7 6.0- 8.3 gm/dL L = 2885-2) Albumin (test code = 3.4 g/dL 3.5-5 L 81770-6) Total Bilirubin (test 6.9 mg/dL 0.2-1.2 H code = 1975-2) Bilirubin, Direct (test 2.2 mg/dL 0.1-0.5 H code = 1968-7) Alkaline Phosphatase 58 U/L 40-150 (test code = 6768-6) AST (test code = 1920-8) 36 U/L 5-34 H ALT (test code = 1742-6) 13 U/L 6-55 VALENTE (test code = VALENTE) Master Certified Rv Technician ID - BSSpecimen moderately icteric Lab Interpretation (test Abnormal code = 08530-7) [facility] DistrictPhosphorus2020-07-01 04:53:00 Test Item Value Reference Range Interpretation Comments Phosphorus (test code = 3.2 mg/dL 2.3-4.7 2777-1) VALENTE (test code = VALENTE) Master Certified Rv Technician ID - BS Lab Interpretation (test Normal code = 04423-2) [facility] DistrictPHOSPHORUS2020-07-01 04:53:00 Test Item Value Reference Range Interpretation Comments PHOSPHORUS (BEAKER) (test code = 3.2 mg/dL 2.3-4.7 604) Master Certified Rv Technician ID - [id number] 04:53:00 Test Item Value Reference Range Interpretation Comments MAGNESIUM (BEAKER) (test code = 1.7 mg/dL 1.6-2.6 627) Master Certified Rv Technician ID - BSHEPATIC FUNCTION [id number] 04:53:00 Test Item Value Reference Range Interpretation [...] (test code = 13 U/L 6-55 347) Master Certified Rv Technician ID - BSSpecimen moderately ictericCBC W/PLT COUNT & AUTO [id number] 04:42:00 Test Item Value Reference Range Interpretation [...] PERCENT (BEAKER) (test code = 2801) PROTHROMBIN [id number] 04:36:00 Test Item Value Reference Range Interpretation [...] (test No organisms seen code = 1123) [facility] DistrictBODY FLUID CULTURE + GRAM [id number] 12:05:00 Test Item Value Reference Range Interpretation Comments CULTURE (BEAKER) (test No growth code = 1095) GRAM STAIN RESULT <1+ White blood cells (BEAKER) (test code = seen 1123) GRAM STAIN RESULT No organisms seen (BEAKER) (test code = 17832) Manual [id number] 07:35:00 Test Item Value Reference Range Interpretation Comments % Neutros (test code = 66 % 2816) % Lymphs (test code = 24 % 2817) % Monos (test code = 7 % 2818) % Eos (test code = 2819) 2 % % Metamyelo (test code = 1 % 0-0 H 2821) # Neutros (test code = 0.92 K/ul [...] Poikilocytes (test code = 2+ moderate 966) Tilly Cells (test code = 2+ moderate 474) Artifact (test code = Present 3432) Platelet Conc (test code Decreased = 3438) VALENTE (test code = VALENTE) Master Certified Rv Technician ID - [id number] ID - Maria Del Carmen Quintana comments: Slide comments: Lab Interpretation (test Abnormal code = 18680-6) [facility] W/PLT COUNT & AUTO [id number] 07:35:00 Test Item Value Reference Range Interpretation [...] CONCENTRATION Decreased (CELLAVISION)(BEAKER) (test code = 3438) Master Certified Rv Technician ID - [id number] ID - Maria Del Carmen Lilian comments: Slide comments:Basic Metabolic [id number] 06:24:00 Test Item Value Reference Range Interpretation Comments Sodium (test code = 140 meq/L 352-476 2596-2) Potassium (test code 3.4 meq/L 3.5-5.1 L = 2823-3) Chloride (test code = 105 meq/L 98-107 2075-0) CO2 (test code = 25 meq/L 22-29 2028-9) BUN (test code = 31 mg/dL 7-21 H 3094-0) Creatinine (test code 2.35 mg/dL 0.57-1.25 H = 2160-0) Glucose (test code = 108 mg/dL 70-105 H 2345-7) Calcium (test code = 8.7 mg/dL 8.4-10.2 51160-4) EGFR (test code = 21 mL/min/1.73 [place] [address]-7) NOT ACCURATE CREATININE CLEARANCE IN PREDICTING GLOMERULAR FILTRATION RATE . ESTIMATED GFR I S NOT APPLICABLE FOR DIALYSIS PATIENTS. VALENTE (test code = VALENTE) Master Certified Rv Technician ID - MITCH Jane moderately icteric Lab Interpretation Abnormal (test code = 41012-3) [facility] DistrictBASI METABOLIC [id number] 06:24:00 Test Item Value Reference Range Interpretation [...] S NOT APPLICABLE FOR DIALYSIS PATIEN TS. Master Certified Rv Technician ID - MITCH RUTHERFORDpecnicon moderately ictericHEPATIC FUNCTION [id number] 06:23:00 Test Item Value Reference Range Interpretation [...] (test code = 13 U/L 6-55 347) Master Certified Rv Technician ID Mercedes MEYER LSpecimen moderately [id number] 06:22:00 Test Item Value Reference Range Interpretation Comments MAGNESIUM (BEAKER) (test code = 1.8 mg/dL 1.6-2.6 627) Master Certified Rv Technician ID Mercedes MEYER LPROTHROMBIN TIME/[id number] 04:22:00 Test Item Value Reference Range Interpretation [...] = No growth in 5 days 6463-4) [facility] DistrictBLOOD [id number] 23:00:00 Test Item Value Reference Range Interpretation Comments CULTURE (BEAKER) (test No growth in 5 days code = 1095) BLOOD [id number] 23:00:00 Test Item Value Reference Range Interpretation Comments CULTURE (BEAKER) (test No growth in 5 days code = 1095) DLCO (single breath diffusion)2020-01-24 10:41:00Epifanio Giles RRT, MANAGER LEGAL 01/24/2020 10:52 [facility] PFT CHARTING REPORT Infection Control/Hand Hygiene procedures followed throughout the encounter with patient: YesPatient Identification Method: Patient name verified on armband, and Medical record on armband, Is the order complete?: Yes Account ID#: [id number] Name: Cici Calderon Birthdate: 1955 Age: 64 [...] and patient released from the lab without adverseoutcome.[facility] DistrictPulmonary Funct Lab [id number] 10:41:00Epifanio Giles RRT, MANAGER LEGAL 01/24/2020 10:52 [facility] PFT CHARTING REPORT Infection Control/Hand Hygiene procedures followed throughout the encounter with patient: YesPatient Identification Method: Patient name verified on armband, and Medical record on armband, Is the order complete?: Yes Account ID#: [id number] Name: Cici Calderon Birthdate: 1955 Age: 64 [...] and patient released from the lab without adverseoutcome.[facility] DistrictLu [id number] 10:41:00Epifanio Giles, ONLINE MEDIA BUYER, MANAGER LEGAL 01/24/2020 10:52 [facility] PFT CHARTING REPORT Infection Control/Hand Hyg iene procedures followed throughout the encounter with patient: YesPatient Identification Method: Patient name verified on armband, and Medical record on armband, Is the order complete?: Yes Account ID#: [id number] Name: Cici Calderon Birthdate: 1955 Age: 64 [...] and patient released from the lab without adverseoutcome.[facility]6 MINUTE WALK(FOR LUNG TRANSPLANT ONLY)2020-01-24 10:20:00Janina Meehan, JUVENAL, MANAGER LEGAL 01/24/2020 2:39 [facility] PFT CHARTING REPORT Infection Control/Hand Hygiene procedures followed throughout the encounter with patient: YesPatient Identification Method: Patient name verified on armband, and Medical record on armband, Is the order complete?: Account ID#: [id number] Name: Cici Calderon Birthdate: 1 09/08/1954 Age: [...] patient released from the lab without adverse outcome.[facility] DistrictU/S, [id number] 09:43:00 Referring: Dr. Rowdy Christie to be ordered:->Body Fluid Culture (w/Gram Stain, C\\T\\S)Labs marko ordered:->Cell CountReason for exam:->Acute Kidney Injury - rule out SBP - can remove volume of up to 4-5 L (given ANDERS)Should this be performed at the bedside?->YesFINAL REPORT Ultrasound guided paracentesis Clinical History: Ascites. Sedation: None. Two Needle Machine Operator: Christine Ward PA-C Supervising Physician: Natan Chisholm MD Weaver Dobby Loom: None. Estimated Blood Loss: < 1 mL. [...] anesthesia was achieved with lidocaine, a 5 Maltese one-step catheter was advanced into theperitoneal cavity under ultrasound guidance. After completion of drainage, the catheter was removed.There was no evidence of complication. Impression:Successful ultrasound guided paracentesis. Signed:Natan Chisholm MDReport Verified Date/Time: 01/24/2020 09:43:05 Reading Location: [address] Ultrasound Reading Room US uytschvarlar1934-06-36 09:43:00Interface, External Ris In - 01/24/2020 9:45 AM CDTFINAL REPORT Ultrasound guided paracentesis Clinical History: Ascites. Sedation: None. Two Needle Machine Operator: Christine Ward PA-C Supervising Physician: Natan Chisholm MD Weaver Dobby Loom: None. Estimated Blood Loss: < 1 mL. [...] anesthesia was achieved with lidocaine, a 5 Maltese one-step catheter was advanced into the peritoneal cavity under ultrasound guidance. After completion of drainage, the catheter was removed. There was no evidence of complication. Impression:Successful ultrasound guided paracentesis. Signed: Natan Chisholm MDReport Verified Date/Time: 12/27 09:43:05 Reading Location: [address] Ultrasound [facility] [id number] 06:18:00 Test Item Value Reference Range Interpretation Comments SODIUM (BEAKER) 139 meq/L 136-145 (test code = 381) POTASSIUM (BEAKER) 3.4 meq/L 3.5-5.1 L (test code = 379) CHLORIDE (BEAKER) 106 meq/L 98-107 (test code = 382) CO2 (BEAKER) (test 25 meq/L - code = 355) BLOOD UREA NITROGEN 35 [...] S NOT APPLICABLE FOR DIALYSIS PATIEN TS. Master Certified Rv Technician ID Mercedes RUTHERFORDpecimen moderately cumphnoMKIDPZTTFL0275-31-04 05:38:00 Test Item Value Reference Range Interpretation Comments PHOSPHORUS (BEAKER) (test code = 2.8 mg/dL 2.3-4.7 604) Master Certified Rv Technician ID Mercedes MEYER [id number] 05:38:00 Test Item Value Reference Range Interpretation Comments MAGNESIUM (BEAKER) (test code = 1.8 mg/dL 1.6-2.6 627) Master Certified Rv Technician ID Mercedes MEYER LHEPATIC FUNCTION [id number] 05:38:00 Test Item Value Reference Range Interpretation [...] (test code = 11 U/L 6-55 347) Master Certified Rv Technician ID Mercedes Goetzimen moderately ictericCALCIUM, [id number] 04:56:00 Test Item Value Reference Range Interpretation Comments CALCIUM IONIZED (BEAKER) (test 1.09 mmol/L 1.12-1.27 L code = 698) PH, BLOOD (BEAKER) (test code = 7.43 1810) PROTHROMBIN [id number] 04:48:00 Test Item Value Reference Range Interpretation [...] mechanical heart valves.CBC W/PLT COUNT & AUTO [id number] 04:36:00 Test Item Value Reference Range Interpretation [...] (BEAKER) (test code = 2801) Prepare Leuko-Red [id number] 23:54:00 Test Item Value Reference Range Interpretation Comments CROSSMATCH (test code = 2264) COMPATIBLE Unit ABO (test code = A Pos 3129947) UNIT NUMBER (test code = [id number] 934-0) Status (test code = 4706555) [facility]_TIMEINCARIZONA STATE HOSPITALT Blood Bank Product (test code RED BLOOD CELLS = 2263) PRODUCT CODE (test code = O1005R44 933-2) [facility] DistrictRubeola antibody [id number] 18:06:00 Test Item Value Reference Range Interpretation Comments Rubeola Ab, 235 AU/mL REFERENCE RANGE : Igg (test code <13.50 AU/mL = 73091-7) AU/mL Interpretation ==== <13.50 Negative 13.50-16.49 Equivocal >16.49 Positive A posi tive result indicate s that the patient hasantibody to measles virus. It does notdifferentiat e between an acti ve or past infection. The clinical diagno sis must be interpr eted inconjunction w ith clinical signs and symptoms ofthe patient. For additional information, pl ease refer [email or web address] ion.[facility] stDiagnostics.c om/faq/ MDH620(This rosa k is being provided for informational/e ducatio nal purposes on ly.) VALENTE (test code Performing Lab = VALENTE) *QDID [facility] [address] [place] [address] Sudhakar Hargrove MD [facility] DistrictMitochondria M2 Antibody (IgG)2020-01-23 13:50:00 Test Item Value Reference Range Interpretation Comments Mitochondria M2 Ab <20.0 See Note: U Reference (test code = Range:NEGATIVE: ) < OR = 20.0EQUIVOCAL: 20.1-24.9POSITI V E: > OR = 25.0 VALENTE (test code = Performing Lab VALENTE) EZ [facility] [address] [address] Mark Encarnacion MD, PhD, AMINA [facility] DistrictMumps antibody, [id number] 13:38:00 Test Item Value Reference Range Interpretation [...] (test Performing Lab code = VALENTE) *QDID [facility] [address] [place] [address] Sudhakar Hargrove MD [facility] DistrictCBC W/PLT COUNT & AUTO [id number] 12:26:00 Test Item Value Reference Range Interpretation [...] CONCENTRATION Decreased (CELLAVISION)(BEAKER) (test code = 3438) Master Certified Rv Technician ID - [id number] ID - Charo Jordan comments: Slide comments: BASIC METABOLIC [id number] 07:18:00 Test Item Value Reference Range Interpretation [...] S NOT APPLICABLE FOR DIALYSIS PATIEN TS. Master Certified Rv Technician ID - PIDORIAN LSpecimen moderately [id number] 07:17:00 Test Item Value Reference Range Interpretation Comments MAGNESIUM (BEAKER) 1.6 mg/dL 1.6-2.6 Specimen slightly (test code = 627) hemolyzed Master Certified Rv Technician ID - PIDORIAN [id number] 07:17:00 Test Item Value Reference Range Interpretation Comments PHOSPHORUS (BEAKER) 2.4 mg/dL 2.3-4.7 Specimen slightly (test code = 604) hemolyzed Master Certified Rv Technician ID - MITCH LHEPATIC FUNCTION [id number] 07:17:00 Test Item Value Reference Range Interpretation [...] Specimen slightly (test code = 347) hemolyzed Master Certified Rv Technician ID - PIAYA LSpecimen moderately ictericB-type Natriuretic Factor (BNP) 2020-01-23 06:55:00 Test Item Value Reference Range Interpretation Comments BNP (test code = 60055-2) 2179 pg/mL 0-100 H VALENTE (test code = VALENTE) Master Certified Rv Technician ID - MITCH L Lab Interpretation (test Abnormal code = 20911-6) [facility] DistrictB-TYPE NATRIURETIC FACTOR (BNP)2020-01-23 06:55:00 Test Item Value Reference Range Interpretation Comments B-TYPE NATRIURETIC PEPTIDE 2179 pg/mL 0-100 H (BEAKER) (test code = 700) Master Certified Rv Technician ID - MITCH LCALCIUM, [id number] 06:31:00 Test Item Value Reference Range Interpretation Comments CALCIUM IONIZED (BEAKER) (test 1.07 mmol/L 1.12-1.27 L code = 698) PH, BLOOD (BEAKER) (test code = 7.45 1810) PROTHROMBIN [id number] 06:00:00 Test Item Value Reference Range Interpretation [...] for patients wiht mechanical heart valves.Prepare Leuko-Red [id number] 23:54:00 Test Item Value Reference Range Interpretation Comments Unit ABO (test code = 0005424) O Pos UNIT NUMBER (test code = [id number] 934-0) Status (test code = 0108112) TX_TIMEINCHART Blood Bank Product (test code PLATELETS = 2263) PRODUCT CODE (test code = Q0105K00 933-2) [facility] DistrictCBC W/PLT COUNT & AUTO [id number] 10:35:00 Test Item Value Reference Range Interpretation [...] CONCENTRATION Decreased (CELLAVISION)(BEAKER) (test code = 3438) Master Certified Rv Technician ID - [id number] ID - Lizett OverholtUser comments: Slide comments: [id number] 10:05:00 Test Item Value Reference Range Interpretation Comments Cortisol, Total (test code 1.6 ug/dL 3.7-19.4 L = 2755) VALENTE (test code = VALENTE) Master Certified Rv Technician ID - MITCH L Lab Interpretation (test Abnormal code = 51474-6) [facility] DistrictCORTISOL2020-06-27 10:05:00 Test Item Value Reference Range Interpretation Comments CORTISOL, TOTAL (BEAKER) (test code 1.6 ug/dL 3.7-19.4 L = 2755) Master Certified Rv Technician ID - MITCH LDirect AHG (KRISTI)/Direct Tniufr6840-11-02 07:49:00 Test Item Value Reference Range Interpretation Comments Direct AHG-IGG (test code = 1006-6) NEGATIVE Direct AHG-C3B, C3D (test code = NEGATVIE 1003-3) [facility] DistrictABORH, [id number] 07:37:00 Test Item Value Reference Range Interpretation Comments ABO Grouping (test code = 2588) A Rh Factor (test code = 2589) POS [facility] DistrictCALCIUM, [id number] 06:31:00 Test Item Value Reference Range Interpretation Comments CALCIUM IONIZED (BEAKER) (test 1.10 mmol/L 1.12-1.27 L code = 698) PH, BLOOD (BEAKER) (test code = 7.44 1810) BASIC METABOLIC [id number] 06:20:00 Test Item Value Reference Range Interpretation [...] S NOT APPLICABLE FOR DIALYSIS PATIEN TS. Master Certified Rv Technician ID - PIAYA LSpecimen moderately [id number] 06:12:00 Test Item Value Reference Range Interpretation Comments MAGNESIUM (BEAKER) (test code = 1.7 mg/dL 1.6-2.6 627) Master Certified Rv Technician ID - PIAYA LHEPATIC FUNCTION [id number] 06:12:00 Test Item Value Reference Range Interpretation [...] (test code = 10 U/L 6-55 347) Master Certified Rv Technician ID - MITCH Jane moderately ictericPROTHROMBIN TIME/[id number] 05:48:00 Test Item Value Reference Range Interpretation [...] is2.5-3.5 for patients wiht mechanical heart valves.Renin, [id number] 22:50:00 Test Item Value Reference Range Interpretation Comments PRA,LC/MS/MS 1.51 ng/mL/h 0.25-5.82 This test was developed (test code = and its analyti steven 2283566) performance characteristics havebeen determined by [facility].It h as not been cleared or approved by FDA. This as say has been validatedp ursuant to the CLIA reg ulations and is used for clinical purposes. VALENTE (test Performing Lab code = VALENTE) EZ [facility] [address] [place] [address] Mark Encarnacion MD, PhD, AMINA [facility] DistrictBody fluid cell count with zfkjpvukzser6510-69-27 18:33:00 Test Item Value Reference Range Interpretation Comments Appearance (test code = 9335-1) Hazy Clear A Color (test code = 6824-7) Cele Colorless, Straw A RBCs (test code = 63838-8) 4000 <=1 /cu mm H Adjusted WBC Count (test code = 86 <=5 /cu mm H 48381-5) Lining Cells (test code = 1 <=1 /cu mm 86102-1) % Segs (test code = 97208-2) 7 % % Lymphs (test code = 70043-8) 83 % % Monos (test code = 59612-3) 10 % % Eos (test code = 52296-2) 0 % % Baso (test code = 61021-7) 0 % Container Body Fluid (test code Sterile Vial = 2873) Lab Interpretation (test code = Abnormal 17788-1) [facility] DistrictBODY FLUID CELL COUNT WITH [id number] 18:33:00 Test Item Value Reference Range Interpretation [...] = 2873) Peripheral Blood Smear - Hold [id number] 15:19:00 Test Item Value Reference Range Interpretation Comments Peripheral Smear Save (test code = saved 1815) [facility] DistrictPERIPHERAL BLOOD SMEAR - HOLD [id number] 15:19:00 Test Item Value Reference Range Interpretation Comments PERIPHERAL SMEAR SAVE (BEAKER) (test saved code = 1815) [id number] 14:41:00 Test Item Value Reference Interpretation Comments Range Aldosterone (test 22 ng/dL Adult Ref erence code = 3632799) Ranges for Aldosterone: Upright 8:00-10 :00 am < or = 28 ng/ dL Upright 4:00-6: 00 pm < or = 21 ng/ dL Supine 8:00-10 :00 am 3-16 ng/dL Th is test was developed a nd its analytical perf ormance characteristics havebeen determ ined by [facility] .It has not been cleare d or approved by FDA . This assay has been validatedpursua nt to the [facility] and is used for clinical purpos es. VALENTE (test code = Performing Lab VALENTE) EZ [facility] [address] [place] [address] Mark Encarnacion MD, PhD, AMINA [facility] DistrictT Spot [id number] 13:05:00 Test Item Value Reference Range Interpretation Comments T-Spot TB (test code = 02368-2) Negative Neg Ctrl Spot Count (test code = 0 49743-9) Panel A Spot (test code = 81312-8) 0 Panel B Spot (test code = 86821-0) [address] (test code = 0 17304-4) Scan Result (test code = 3236882) [facility] DistrictT SPOT [id number] 13:05:00 Test Item Value Reference Range Interpretation Comments T-SPOT TB (BEAKER) (test code = Negative 1683) NEG CONTROL SPOT COUNT (BEAKER) 0 (test code = 1684) PANEL A SPOT (BEAKER) (test code = 0 1685) PANEL B SPOT (BEAKER) (test code = 0 1686) POS CONTROL SPOT CT (BEAKER) (test 0 code = 1687) SCAN RESULT (test code = 4088343) BLOOD [id number] 13:00:00 Test Item Value Reference Range Interpretation Comments CULTURE (BEAKER) (test No growth in 5 days code = 1095) BLOOD [id number] 12:00:00 Test Item Value Reference Range Interpretation Comments CULTURE (BEAKER) (test No growth in 5 days code = 1095) [id number] 10:25:00 Test Item Value Reference Range Interpretation Comments CORTISOL, TOTAL (BEAKER) (test code 5.1 ug/dL 3.7-19.4 = 2755) Master Certified Rv Technician ID - TUAN CCOMPREHENSIVE METABOLIC [id number] 10:23:00 Test Item Value Reference Range Interpretation [...] S NOT APPLICABLE FOR DIALYSIS PATIEN TS. Master Certified Rv Technician ID - TUAN CSpecimen moderately ictericVaricella zoster antibody, IgG 2020-01-21 10:15:00 Test Item Value Reference Range Interpretation Comments Varicella IgG (test 3.6 code = 28576-9) VALENTE (test code = VALENTE) VARICELLA ZOSTER RESULT INTERPRETATIONS: <=0.8 Al Nonreactive: Presumed non-immune to VZV 0.9-1.0 Al Equivocal >=1.1 Al Reactive: Presumed immune to VZV [facility] CampusRubella antibody, [id number] 10:15:00 Test Item Value Reference Range Interpretation Comments Rubella IgG Quant (test 127.0 <8.0 IU/mL H code = 8014-3) VALENTE (test code = VALENTE) Rubella IgG Result Interpretation: </= 7.0 IU/mL Negative - Presumed non-immune 8.0 - 9.9 IU/mL Equivocal >= 10.0 IU/mL Positive - Presumed immune Lab Interpretation (test Abnormal code = 43501-8) [facility] DistrictRUBELLA ANTIBODY, [id number] 10:15:00 Test Item Value Reference Range Interpretation Comments RUBELLA IGG QUANTITATION (BEAKER) 127.0 IU/mL <8.0 H (test code = 572) Rubella IgG Result Interpretation: </= 7.0 IU/mL Negative - Presumed non- immune 8.0 - 9.9 IU/mL Equivocal >= 10.0 IU/mL Positive - Presumed immune VARICELLA ZOSTER ANTIBODY, [id number] 10:15:00 Test Item Value Reference Range Interpretation Comments VARICELLA ZOSTER IGG (AL) (BEAKER) 3.6 (test code = 3197) VARICELLA ZOSTER RESULT INTERPRETATIONS: <=0.8 Al Nonreactive: Presumed non-immune to VZV 0.9-1.0 Al Equivocal >=1.1 Al Reactive: Presumed immune to VZVReticulocyte [id number] 10:12:00 Test Item Value Reference Range Interpretation Comments % Retic (test code = 5.3 % 0.5-1.7 H 14842-5) VALENTE (test code = VALENTE) Master Certified Rv Technician ID - [id number] Lab Interpretation (test Abnormal code = 65550-5) [facility] DistrictRETICULOCYTE [id number] 10:12:00 Test Item Value Reference Range Interpretation Comments RETICULOCYTE COUNT PCT (BEAKER) (test 5.3 % 0.5-1.7 H code = 575) Master Certified Rv Technician ID - [id number] 10:06:00 Test Item Value Reference Range Interpretation Comments PHOSPHORUS (BEAKER) (test code = 3.1 mg/dL 2.3-4.7 604) Master Certified Rv Technician ID - TUAN [id number] 10:06:00 Test Item Value Reference Range Interpretation Comments MAGNESIUM (BEAKER) (test code = 1.7 mg/dL 1.6-2.6 627) Master Certified Rv Technician ID - TUAN CHEPATIC FUNCTION [id number] 10:06:00 Test Item Value Reference Range Interpretation [...] (test code = 12 U/L 6-55 347) Master Certified Rv Technician ID - TUAN CSpecimen moderately ictericRAD, CHEST, [...] Walker Verified Date/Time: 01/21/2020 10:03:32 Reading Location: [facility] Radiology Reading Room XR chest 1 view portable / [id number] 10:03:00 Interface, External Ris In - 01/21/2020 [...] Walker Verified Date/Time: 01/21/2020 10:03:32 Reading Location: [facility] Radiology Reading Room [facility] W/PLT COUNT & AUTO [id number] 09:59:00 Test Item Value Reference Range Interpretation [...] PERCENT (BEAKER) (test code = 2801) PROTHROMBIN TIME/[id number] 09:53:00 Test Item Value Reference Range Interpretation [...] valves.MR, ABDOMEN, WITHOUT CONTRAST 2020-01-21 07:51:00Referring: Dr. [facility] HospitaltFINAL REPORT TECHNIQUE: MRI of the abdomen WITHOUT [...] MDReport Verified Date/Time: 01/21/2020 07:51:30 Reading Location: [facility] Diagnostic Imaging Reading Room - [place] [address] MR abdomen without IV contrast 2020-01-21 07:51:00Interface, [...] Crocker Verified Date/Time: 01/21/2020 07:51:30 Reading Location: [facility] Diagnostic Imaging Reading Room - [place] [address] [address] [facility] Type and screen, [id number] 22:06:00 Test Item Value Reference Range Interpretation Comments ABO/RH AUTOMATED (BEAKER) (test A POSITIVE code = 2260) Ab Scrn (test code = 890-4) NEGATIVE [facility] DistrictRAD, CHEST, 1 VIEW, NON [id number] 21:16:00 Referring: Dr. Rowdy Zhang for exam:->JVD [...] MDReport Verified Date/Time: 01/20/2020 21:16:28 Reading Location: [facility] C013 Transitional Reading Room Cryptococcal [id number] 11:36:00 Test Item Value Reference Range Interpretation Comments Cryptococcal Antigen, Serum Negative Negative, Interference (test code = 75782-6) Lab Interpretation (test code Normal = 60075-3) [facility] DistrictCRYPTOCOCCAL [id number] 11:36:00 Test Item Value Reference Range Interpretation Comments CRYPTOCOCCAL ANTIGEN, SERUM Negative Negative, Interference (BEAKER) (test code = 1828) CBC W/PLT COUNT & AUTO [id number] 09:56:00 Test Item Value Reference Range Interpretation [...] CONCENTRATION Decreased (CELLAVISION)(BEAKER) (test code = 3438) Master Certified Rv Technician ID - [id number] ID - Lizett OverholtUser comments: Slide comments: COMPREHENSIVE METABOLIC [id number] 05:46:00 Test Item Value Reference Range Interpretation [...] 347) EGFR (BEAKER) (test 10 mL/min/1.73 ESTIMA MADIA GFR IS code = 1092) sq m NOT ACCURATE CREATININE CLEARANCE IN PREDICTING GLOMERULAR FILTRATION RATE . ESTIMATED GFR I S NOT APPLICABLE FOR DIALYSIS PATIEN TS. Master Certified Rv Technician ID - MITCH LSpecimen moderately [id number] 05:37:00 Test Item Value Reference Range Interpretation Comments PHOSPHORUS (BEAKER) (test code = 2.8 mg/dL 2.3-4.7 604) Master Certified Rv Technician ID - MITCH [id number] 05:37:00 Test Item Value Reference Range Interpretation Comments MAGNESIUM (BEAKER) (test code = 1.9 mg/dL 1.6-2.6 627) Master Certified Rv Technician ID - MITCH LHEPATIC FUNCTION [id number] 05:37:00 Test Item Value Reference Range Interpretation [...] (test code = 9 U/L 6-55 347) Master Certified Rv Technician ID - MITCH LSpecimen moderately ictericPROTHROMBIN TIME/[id number] 04:53:00 Test Item Value Reference Range Interpretation [...] is2.5-3.5 for patients wiht mechanical heart valves.CALCIUM, [id number] 04:45:00 Test Item Value Reference Range Interpretation Comments CALCIUM IONIZED (BEAKER) (test 1.14 mmol/L 1.12-1.27 code = 698) PH, BLOOD (BEAKER) (test code = 7.36 1810) Sodium, random [id number] 00:37:00 Test Item Value Reference Range Interpretation Comments Sodium Urine (test <20 meq/L code = 2955-3) VALENTE (test code = Reference Range: No VALENTE) NormalsOperator MABLE MEYER L [facility]anoODIUM, RANDOM [id number] 00:37:00 Test Item Value Reference Range Interpretation Comments SODIUM URINE (BEAKER) (test code = < meq/L 243) Reference Range: No NormalsOperator MABLE MEYER LUrinalysis w/Microscopic 2020-01-20 00:30:00 Test Item Value Reference Range Interpretation Comments Color, UA (test code = Yellow 5778-6) Clarity, UA (test code = Hazy 5767-9) Specific [place], UA (test 1.017 1.001-1.035 code = 5811-5) pH, UA (test code = 5.5 5.0-8.0 5803-2) Protein, UA (test code = 20 mg/dL Negative A 24534-8) Glucose, UA (test code = Negative Negative 365) Ketones, UA (test code = Negative Negative 2514-8) Bilirubin, UA (test code = Negative Negative 08083-7) Blood, UA (test code = Small Negative A 39296-5) Nitrite, UA (test code = Negative Negative 5802-4) Leukocytes, UA (test code Trace Negative A = 5799-2) Urobilinogen, UA (test 0.2 mg/dL 0.2-1 code = 24823-5) RBC, UA (test code = 1 /HPF 29965-1) WBC, UA (test code = 3 /HPF 5821-4) Bacteria, UA (test code = Rare 21173-4) Squam Epithel, UA (test 3 /HPF code = 11898-2) Hyaline Casts, UA (test 3 /LPF code = 00614-7) Specimen Source (test code = 2795) VALENTE (test code = VALENTE) Master Certified Rv Technician ID - [auto]Master Certified Rv Technician ID - tech Lab Interpretation (test Abnormal code = 57123-2) [facility] + Reflex to Culture 2020-01-20 00:30:00 Test Item Value Reference Range Interpretation Comments Color, UA (test code = 5778-6) Yellow Clarity, UA (test code = 5767-9) Hazy Specific [place], UA (test code = 1.017 1.001-1.035 5811-5) pH, UA (test code = 5803-2) 5.5 5.0-8.0 Protein, UA (test code = 40277-8) 20 mg/dL Negative A Glucose, UA (test code = 365) Negative Negative Ketones, UA (test code = 2514-8) Negative Negative Bilirubin, UA (test code = 94026-3) Negative Negative Blood, UA (test code = 57392-2) Small Negative A Nitrite, UA (test code = 5802-4) Negative Negative Leukocytes, UA (test code = 5799-2) Trace Negative A Urobilinogen, UA (test code = 0.2 mg/dL 0.2-1 36654-0) RBC, UA (test code = 80851-6) 1 /HPF WBC, UA (test code = 5821-4) 3 /HPF Bacteria, UA (test code = 62626-6) Rare Squam Epithel, UA (test code = 3 /HPF 55229-1) Hyaline Casts, UA (test code = 3 /LPF 71400-6) Specimen Source (test code = 7965) Lab Interpretation (test code = Abnormal 62935-1) [facility] REFLEX URINE [id number] 00:30:00 Test Item Value Reference Range Interpretation [...] 3 /LPF 514) SOURCE(BEAKER) (test code = 9755) URINALYSIS W/ [id number] 00:30:00 Test Item Value Reference Range Interpretation [...] /LPF 514) SOURCE(BEAKER) (test code = 2795) Master Certified Rv Technician ID - [auto]Master Certified Rv Technician ID - techActin (Smooth Muscle) Antibody, IgG [...] of patients withautoimmune hepatitis (AIH) type 1, eacmfcwxxuedw02 % of patients with autoimmune cholangitis,lis sherine mately 30% of patients with primary biliarycirrhosi s, and approximate ly 2% of healthy people.High beatriz ues are closely correlated with AIH type 1. VALENTE (test code = Performing Lab VALENTE) [facility] [address] [place] [address] Mark Encarnacion MD, PhD, AMINA Lab Interpretation Abnormal (test code = 88437-2) [facility]2020-06-24 20:06:00 Test Item Value Reference Interpretation Comments Range Zinc (test code = 39 60- 130 mcg/dL L This te st was ) developed and i ts analytical performance characteristics have been determined by [employer] . It has not been cleared or appr jean-claude by theFDA. This assay has been validated pursu ant to the CLIA regulations and is used for clinic al purposes. VALENTE (test code = Performing Lab VALENTE) *BEATRIZ [facility], [address] [place] [phone] Jorje Jauregui MD, PhD Lab Interpretation Abnormal (test code = 19578-3) [facility] [id number] 16:12:00 Test Item Value Reference Range Interpretation Comments Case Report (test code Surgical Pathology = 104) Report Case: [id number] Authorizing Provider: Sylvie George MD Collected: 01/17/2020 08:15 AM Ordering Location: [address] Received: 01/17/2020 01:50 PM Service Pathologist: Humaira Mendez MD Specimen: Duodenum, biopsy ADDENDUM (test code = o3xvlGHfTXJnmAOtErEhXH 3381) XsQFVuw3hhKTAqnQZjXgDw MzNcZnRuYmpcdWMxXGRlZm Cwx0bno487fXLrf4efYPBs XbW5lXEwZVXfxZYaV137EE QsKWozs4iui7WkRNBvqRSp p7K8PDEFiomobGg9kMggU2 4lh4A5KcqlD3mdTNIpMZXc J0XjEO2sCZMoHrh4XID8WO E6EUGdFCDvG6MpWI8aUGKm fFCeCZx1p9ikiEhdPXMoPE N2j0gzINiwaqPbYV2kdg3k oDl2s1bxgyAtNDLfBRGbnA ZEGCFaQ9FpnRvjZm2wiXs3 hJcyFxfvRAH7Vjy6CL0yms 07yzt4wDryGSGaysbeQkB4 XElzJRCrpbauDQi9UIdaXJ WkzCH6XSTubZZyS4GmNCEm TT3ppvr3DAH3OHqvLUMwPe G5PEIvvAYyNUBjrOdaEOzx p059SDS3DaWjJB2bW1Buw8 W9zS6vsHFmZQZyfVZnSwMo FSDepm0lnHPzFVkaw6BnRN M4wbL5xJAswPCiBFJmVM34 Laypn2ZeAcixVFS3SRNskq Apt1Bqt5neZhYujgSeL9op Y7AlAFRgWILqMJAhPxJbsk Cdd6Pof4AmpFOwpZc3p7wr JTIzWCCgiGsnm4lzUNZ2DE TjQ1Z6tGCou1nfLQmeEXUm sTT9mfC1JFCnpVDeO7WccX 4lOVFuHO7wfky7f3zrPFZ0 CAcsFOQqNcV5xnN1SNJnhK KyXJYhaFfeWIzlg793DVP6 FkOePHPrk2DsB8PsuIfxO1 4hcNuhS63oALFhgEqjqH1v sDwafE6rPeEfGrQyZZabUE JkXHBsYWluXGYxXGZzMjBc bGFuZzEwMzNcaGljaFxmMV dsHlPjDAJpWIzpB2eiTvWe OvYuCMUNGFmEYSKQMM0YEF 5OZZeBHKyOX3NIGAXQPxZQ RVBPUlQgVEhFIEZJTkRJTk dTIElOIFRIRSBERUVQRVIg GOLXJNjMOK1WQBPFGRRCMU 6MD5agXK2SZPjENhXfVBkY YCFIQrPJRDKJPGxPW2SLWu pccGFyXHFsXHBsYWluXGYw RWAoLjYhwWwovC8gCfZfTt ZkAMniFW4pXNBeG7ieyMJn UYZlPVSoB6ofEmDgrG6biQ xmMVxmczIwXHBhciAgRFVP FZXFEF4bXSLRYC3XH03VPF MgQklPUFNZOlxwYXIgICAt LONLNDIQJGCuQdSQL6OGAn UZUoZCIKSmUJKCWR2HKTLT U0PHCXVsHQRZS6vFM7PNAm WfG3RnMC9EDNPJSVNTX3QA Ak9LONQRJJalWDIrGWLwZR 4UHLOUIKRPHqOWHQ2JYSLK TElBQyBESVNFQVNFIFNFRU 5ccGFyICAgLSBOTyBHUkFO VUxPTUFTLCBEWVNQTEFTSU LcW4ZcEWLAIHqBFX4PIXUD RUVOXHBhcn0= DIAGNOSIS (test code = p7ycgTUmHXEud9yuQCEaxG 3220) FuZzEwMzNcZnRuYmpcdWMx QNjznvRaEOmji7ZmP9DdHc AwMFxhbnNpXGRlZmxhbmcx XFMwQXN6esOyZLPjGVwlUG VuYTfxBl1wfAKxtStbIqYt SSLlv8cfshXPggdsbLp2b9 xlFKWmUfD1kBRgAOuxG4pd gmUrnVAlQGSgCUx5qG75WK TcaC8tsLOtSItenbAhHqG0 WYumMDOfRqP4ZNHeeOJlOY TaY7czSIPtWVmkSYXkWIfu bWXcVXH2jVodl6J6lTLmaL OpnJktLvHaXiKgWTHXx8Qr FRv7eKkiH8XtXGOmRqQ8bR QgUGFyYWdyYXBoIEZvbnQ7 aW62VOezdxT0dOUuu2Mza8 9wk087xV0rwVGeHOJ1KOGw PGXerUQyOKIcSQI3MHJesM YuG1l2OgUjzKOvH2V3DgFm dOXtU8Q6DrJzfKEnM5H8Sm WbyGChGQKelOIeDl5gyGTa iWVvaj3uwc32TNB1z4PfgG ntPXS0FBM8MdJaIe2ufRKc TXSjZJ9hWyFilFRoPMCwar 71cBdjLAmaelSwmR7fVtKr QXXmiNIaNEZqYB6hcWZjKD MajU1itqkbMWVjBoPsdulm ZQGmhGwtfjRnFf9adBhkUT R9LWioF5aazR2uHwR3FVku Q7wmkK9mJLo0VVffxHP0LC MrlN3iZH7wqjcrs9qbZoCq EJ1qkvady7gsKpHvCG6jto z0y2jjNkEqYL3yvpomi6jr NzIwXGhlYWRlcnkwXGZvb3 FljigeUKYoy6IbB4LezOdm V61daFwwP11uYTShzYemfA 5diVjnyC5xVgFdFkAcRNyw bFxwbGFpblxmMVxmczIwXG fifymkDTPrWApzF4xuJjRp XFFedItkYXizn5XlZVYaQF SxHwIzYNWBRPARPL9nMJCV XH4DA81MUKWlRbiJFPYFBu ikXZRnLNNoP5CKWYWXZPMB DEmtNsGPP52ILzGUCZ4BPW KLTGiABIQEH4QWPY2VK54O KLGHMTPBFDaMQ7BADYVvOe 2DPO4HDALaZLPAYRLGMUZS DFnfTGJrtCZxJYUqoz10XP R2GpSow9L3RJC2OJXlNQJf j4evDMBayAZrAwDfQlHyGk MsJglgfNDnBQMxZjSoh3zj w795aTXbc9guHZEhBnT4pN UwJVQegKNdX669APLiGSem t0oob1RsQKDgkMBto0R6RY XTrvprwSd4oUssX84qt8U5 PevjC9coAZCqMQCxL4MiAN 9gOSNaCep6HJY6HTB8ZUTd KHQnL7GbWC4rHQIxgWMaHA p7k9sowVftGCLuETI1w1ml BIugpoWjIL8evp7kxJg1w4 xjczEgRGVmYXVsdCBQYXJh V6MvyDftOb8prBi7qTmoPy dtSSY6Jvs1TJ8lue55nvh1 iBnaVTDwdzwzOtN3RXanZD WkevdsCVs3ERquSKBlcZU4 GCVymKHzR6BnEVOxUP3hdp a6DLP4URyrMDVlYbZ7PLIe uVUvTGBobAkgOPegs338OU H9LyCvGZ7oE0Dvv9W7xP9y aXRcZGVmdGFiNzIwXGZvcm 5keCRhPDsdm5RjNFW8pkI4 rXMdeUUkHDRwUyK2DOogYX 3dhb28UUCcKLQ8sf4wxVIv wTcvxlPvuSWbESbpE1WaGJ Auq431SYBuK2EaTLJya8O8 akQbQsKzLOJzeAP5ovQ6SW SzXQ6nbsfne0dkSIuhHWov SNHplyR0enQ3CYFsaYRrU7 NeaP4eCSAeIF0syttmv1uk NKW2HDlvMHXqFGP9QoMdIM Ogi2Mkmxg7TuYir5QtbUXr JLqfM83na789PXJgczWxD6 xwbGFpblxwbGFpblxmMFxm nnD6ETGqMHefbcltFBPjVG clX2ceIiIgENNdsGsfFQuk d9GeOAGmYEQlWhJspXShER GpGgy7HWIszCEiLPVsGzNi F6xnaveyYwVRPARgq7pwE3 qgiEQFoGQsL6ApHGtbsqIo GSclZKsoKMS0PSA9Im30Wb G9SKZyue53 CPT Code(s) (test code l3uqjKQkOACabMWtTsVqQU = 3357) HxANSrg1sqAJRbwNJqCkQn MzNcZnRuYmpcdWMxXGRlZm Axf3ydv091rJAqh0pwCPSp OwK9vFGpMJQdgBLpT836e2 nqa3ygjvLkzEN9YRRnVUM4 RYzkdeXjmzZ3PGfyzQEcDa F3NPviagFdZOsayyMblvFu Xnn0GRCnR172NFB2gQjme3 lqKLC1ILAlZPMrFjIkBm1i nLGdH059SITnEKXUBPRxlJ e2KSXxkfSbdqPicXNAs658 O402y1uiZVFkpwIjiKhOqq lyp7aiO918DSMzcKQvtpFm RdVxZRYrkCXhcON2ERYhDQ 4cetoqLaYvXO8adwbwWkWm IT2vwxi7SvKgYX6fhcjeRi TeWXbcIWHskkjbNANsd7Dh shluWZ3kC3Wyb5J9gJ3kmI MfIARszNCtDeIeKIFacv7h iBMuVAjhr6UdYHA7zwE2wB LoqNWaCFOeFZ44Uebaa0Uy SlkwUWJ4JMJlqaUjp3Xch9 qoRbFsxqCcD3axE6QfTGHg PMRqPHEvSgVdqtAzd1Ioh6 PgfGNshYh9r6qzKTLwKRZy mJxwj0thHWV5YGCsT3L1nO Apr0doOLmmTINdqLX5xzhi LPqeISVdokW3rgueXNjaEB CwwDK9lzjnZWcjGHFwZyO7 hfwiRKerKJHfFTO8OQgob0 20HRV1TQabQpzjKXmaVQRy bmNvbnRccGduZGVjXHBsYW luXHBsYWluXGYwXGZzMjRc fRktbMxklJ9kIlXuIuYhIG acVT3hQBUhI7gdlLToPXVe BNFzF3yaAjFiyH5uuLtsST sjbeFpXHz0HxM2JHTpfp0= CLINICAL HISTORY (test u3tehUEjODAruGQyIfAnJX code = 3356) ToAKQoe2obINKpnKYuQtVs MzNcZnRuYmpcdWMxXGRlZm Bom2aco551nYKap7toFOCc UgV9jOWxMXNnoZCbB437MR RrDIfoz5jzc9ToREBljKBz y2Q9XKKSblwauGh9gYvjY9 3rw5N8WwgzW5ffMZTxDGxn OIImFGnafZKaQPG9KMRrIJ C1OWezocJtfxC5YYrlxOQg RbL7RJg3q8setAjmKIQvVY Z5h5pgNOwambJzDB5ilt8n kAt3m2ovfkUxSHRcEVQdbN EXCKUpD0QyuUkvGl0izEs6 mVtkUabxXKV5Yqp6MN1eil 54zni6yFwxYRRokzogMcC3 RTflWIZvjjceJHl6WAreVS JnbDcyMFxtYXJncjcyMFxt YXJndDcyMFxtYXJnYjcyMF nuQDMfZPD6XQxma576SPY7 XAdvk6llx9dhqKLkTzm6JW MhStZiBhmgNAnsy7Hic2rt SZLhyn4vOSI7gHNciBmel4 H0fHKeCMAojRGcsiGqBDSh LcZ1NQsbUR9cgt67EMFwVJ Y9jg3ztGQaiUazgzXqmDAe ZJxeN9EbRAFky457NKWdK8 JiQULlx1C0phRmUgNxTBCp nHY5yjQ7DHBxCJp0uPHoby Z9axPbkFMfX6kxqT62TsHq nUStX1XefB16IhGlcFSrM3 XcrO08DoUyzNUxI2YxtM59 JtUqwBQpRYQqjIAnUa6xhJ BlgRHym6QmiTAsPUkcC18v x608CUUykfPwE5fpgTXape xwbGFpblxmMFxmczIwXHFs XHBsYWluXGYwXGZzMjBccG wllL2pAxHiBfRbONHZdf1i JBM7jxT2FCYzlEXaABXsUV 4aH21nuWwiHfuwrTM2FRCx ACGot0fcub4mM86bdCOvsA BsGQPtSSJwhnNwrI3xuX6f UHXuKNgbg4UkbldwKC4jdT lhXHBhcn0= SPECIMEN SOURCE (test f3mikUNoMELboOTxYmZzNH code = 3377) OxPIScd9slJXPetUHnDkOq MzNcZnRuYmpcdWMxXGRlZm Ewu7vof676lUVqf0fqGYBg VnP4oALvHEVxdBVzK276b0 zfp9tzuyNpmUW1XEVwELI5 QXrpbhAkvkN9GBhulLArZk E1TPvnpzErOBzsvdJdlmWc Glc8UBCtJ543RDQ2rXrkf7 cdADM9QULjRBVhHsEbZw5r iCFbN558HVQvXZUEFNViqQ s7GQNddrYdegWraKAXm471 I344u2puONXhlhFhkQdFzn ymk3gsG323ILCfuADppnBl OxSnTPKauMGleRJ4VHNeAU 0rlfitOgAfUU0etyhyQyGg IH1njqp2QaFnJL8mfsseIq BgBOocOHHztdkxZYWzz9Ph ayxiUD3dH3Gcg4F0hI5onB OtLSYpjQBrSzAiIMWpen9p tXTsXFecq7UvGCQ6vwY5sM OkyQYjWLElCK40Hdpob0Pn MtrhQIG4EHLbhaZcl7Uwc5 qkNbWhkwUkQ4hlT7EgQZSw TVFhVWAxPxYuomVok9Rvb9 JeoTIabEo3g9emEAUiOUEg uQiqx1smXHG9TLIlR8J5pL Eze2xpSRhvMXFoaZC2clpz OIvpLCVoypH1ctlyWQflXM DrhOX3xvfdRWiaWVNhXbR2 phzmARmdPOUcMAD5THsdc4 72LYH2MAomKapvYGbiCTAe bmNvbnRccGduZGVjXHBsYW luXHBsYWluXGYwXGZzMjRc dBjjlBxlgM0dUlHxEpYqMP peGQ1oNRRsT2yplZFoTFRi WBGcZ2dbVgErsN2xjGzwQE ejqqNuZFMlEVC4l1UryvTa PvJfqC9wh7ffuRGilI== GROSS DESCRIPTION (test p1iavNYkUPJwkLXnSwStSS code = 3366) WdYWWdz4xwLDNkfGDrUhHc MzNcZnRuYmpcdWMxXGRlZm Tvm6obm628eHQmo5fmLMIw KrS8uTPtWXOneCVcG491MV UnLJmkr6yaw0ZuRMCpiRSb i8H7FNUQfteyiLz3iCsvY6 6nr2L6GsygF3wcRQTmTHvc RDNlSBkwpZGkTUJ0FRMdBG J9GTnfzhYxfnI8JVmodMVk ZlV3SXc6o8btaBgyKDTaXA R0k4ojTQiwebXoRV3ypx5r cUl7o3nntrLrSDDbJZVpdC LBBZWuE2UxpOsoTr7dhSp3 gKnwJtfuIQT2Uip6LV1exd 36pon6jZvpOKWamqqlCsN8 LXqjDGTsdiyqGQm1VUgzKL JnbDcyMFxtYXJncjcyMFxt YXJndDcyMFxtYXJnYjcyMF urAXKkDTL9WRqlf865IXK7 EMqwb1syk5wmnZQaDkb0LS WgTuUkSihgARnlx8Ylr9di LBGftf6gKKM8pNTvjIosh8 E6pOXyFBBbjUSxriMyNBIx HaD2PLpcSM0zwn48JGNwAS Y5ps3hkAMiiPbuscWkzAZf FNemV5PiANQnc726EIKqY3 RcWNKop1L4qdDcOmBoFWKn cMF0fzU4PLUhCFz4iEWbpf N1fwAxcQDkO7guvT24DyRk dHKqG8AzcV06NcFwyQQeT0 VkhY31YsDhlYClB7UqoT10 MzSwnGQcOUFobGIpBo2wlS WkwPYpq6UcxSWbMNzfQ16a n819BULfovDfV7ebcYYxvf xwbGFpblxmMFxmczIwXHFs XHBsYWluXGYwXGZzMjBccG mkkM5mDrKhPlUxSKSHSrHZ rPKie5GiB8gqQS6dbXZail AdJQd3FCXqiO9vOz6doSIw fF8eGUIjCKkzTVMkEZNgBt FrsKEpAPhbEAS2lHRsFFPx JHEyBKPzWL94R1UymzRpPQ vzHQTrADSwhD9jKC80dBOk ciBhbmQgIlxwbGFpblxmMF apeqBtSYC9j8JwvrHtEiJh hxKyX51jr3jxdNLtj4Qmy2 7jWNCchg2peJ5dPJinbMSj eospTJexpbEoOQ97M31nDG oqE312AFPrIRppdJOmital MFxmczIwICBwaWVjZXMgb2 NycWzfi1JqCN3lFTV0hzbr ZyAwLjMgeCAwLjIgeCAwLj ChU13kZEhorSRjzcfwWYva cpNkMCBpUFGnpBYquF8ubv GvgjRkgVYcmGR9TBLuSB97 hGUjlIezCn3fhK84tC5iNI PnbHHmGRXlb45nlP8lAAJq SBHtQAZ5MLAotEbqoE5zVm HiQdWiIRNKPQ1uLEtJU1Is XHBhcn0= MICROSCOPIC DESCRIPTION x2crkGZeSUXxiXBoVePwDG (test code = 3371) AuTXZuu9guHESqtTTcHjDf MzNcZnRuYmpcdWMxXGRlZm Xph2wxg063mUXnp9fkTZMi VxG9rVUqAANpbBEwJ998l4 bxx8oqdxOhfXJ5YUMhDTL8 JIutdxXvfmF3EOexoUItVk N2DAebrtOsRXycbfKfqlGg Inx6KQXwU549GXF7nWvtr1 wkJRW9HVMoHFHjZtMvQi4u dBUcX253FUTdROZICWRthF g1KXSlxeUaxqRbwKGEo744 S799u1bnOXSgjnZwlSuHdk yis9qyZ731MLHcaCGeroKv HyLbTIZqoJSrwPB9CMNgRY 0yrftxQrGdCS9nfhgdZgSa BN0brds8SpCvSO4nvpjiMu IcHYcoSREemyweYUNzg6Fh wtdgHM2uI9Zjg8L9kW3xbF DbHENupWEsHiVrOWTpgl9i eOOuQDpxz7DxHGC1wzI5jF SajVVlJXWtRG63Plhkc5Va MulxOXY9TGFpymBpy3Wou0 uhUcBqmcFzF6sxQ3TlTZAi VXToRLLtLmJctqUph3Kos7 TueANjyNa3r8qcVHXdRBDz oAjba5umEIF6EVGdE0U3qV Hwb7qtLOpeCCUaxQV8fadx MDpsENNdmhI7mmjzXEqrLG QoiQP3pnylOYskWHUePbN8 mohjNUkiUOEhSCI1PWshy1 47BUL4EIcsZcooRBdtFFRf bmNvbnRccGduZGVjXHBsYW luXHBsYWluXGYwXGZzMjRc fOquwAmrtA3gTwSpEmQhFL fuAF8lQLVuK1oywMJvLDMf YJDjO5mpQgFfjZ7thInuIG yqfhUbHZAWFpOIJs0IOVzk YXJ9 [facility] [id number] 16:12:00Surgical Pathology Report Case: [id number] Authorizing Provider: Sylvie George MD Collected: 01/17/2020 08:15 AM Ordering Location: [address] Received: 01/17/2020 01:50 PM Service Pathologist: [...] FOVEOLAR METAPLASIA Signing Pathologist Direct Phone Line: [phone] signed by Humaira Mendez MD on 01/18/2020 at 3:50 [id number]: upper endoscopy, biopsy and colonoscopy Pre and postop diagnosis: anemiaA. Duodenum; biopsyA. The specimen is received in formalin labeled with the patient's name, accession number and "duodenum" and consists of one garduno-pink mucosal-covered pieces of tissue measuring 0.3 x 0.2 x 0.1cm. The specimen is submitted entirely following filtration in a cassette A1. HS/plPERFORMEDBlood gas, [id number] 16:03:00 Test Item Value Reference Range Interpretation [...] % Lab Interpretation (test code = Abnormal 42344-3) [facility], [id number] 16:03:00 Test Item Value Reference Range Interpretation [...] (BEAKER) (test code = 1819) 28.0 % [id number] 15:05:00 Test Item Value Reference Range Interpretation Comments Ceruloplasmin (test code 21 mg/dL 18-53 = [id number]) VALENTE (test code = VALENTE) Performing Lab *[facility]AT[facility], [address] [place] [phone] Jorje Jauregui MD, PhD [facility] DistrictCarbohydrate antigen 19-9 (CA 19-9)2020-01-19 12:51:00 Test Item Value Reference Range Interpretation Comments CA 19-9 32 U/mL <34 This test was (test code = performed using the 85239-7) Siemens Chemiluminescen t method.Values o btained from different assay methods cannot be used interchangeably .CA19-9 levels, regardl ess of value, should n ot be interpreted as absoluteevidenc e of the presence or abs ence of disease. VALENTE (test Performing Lab code = VALENTE) [facility] [address] [place] [address] Mark Encarnacion MD, PhD, AMINA [facility] DistrictPROTHROMBIN TIME/[id number] 11:28:00 Test Item Value Reference Range Interpretation [...] patients wiht mechanical heart valves.MM, U/S, BREAST, [id number] 09:52:00Referring: Dr. Rowdy Zhang for exam:->liver transplant [...] Correlation with mammography isrecommended. Signed: Jorge Brooks MDReport Verified Date/Time: 01/19/2020 09:52:28 Reading Location:[address] Mammo Reading Room US breast [id number] 09:52:00Interface, External Ris In - 01/19/2020 9:54 [...] MDReport Verified Date/Time: 01/19/2020 09:52:28 Reading Location: [address] Mammo Reading [facility] WITHOUT [id number] 08:09:00Referring: Dr. Rowdy Wileyesthesia:->NonePlease specify abdominal organs:->AdrenalFINAL REPORT TECHNIQUE: CT of [...] effusion concerning for pneumonia. Signed: John Crocker MDReport Verified Date/Time: 01/19/2020 08:09:04 Reading Location: [facility] Diagnostic Imaging Reading Room - [place] [address] [address] abdomen without IV contrast 2020-01-19 08:09:00Interface, External Ris In - 01/19/2020 8:11 AM CDTFINAL REPORT TECHNIQUE: CT of the abdomen WITHOUT intravenous contrast and WITHOUT oral contrast. Dose modulation, iterative reconstruction, and/or weight-based adjustment of the mA/kV was utilized to reduce the radiation dose to as low as reasonably achievable. INDICATION: Adrenal nodule. COMPARISON: 05/02/2017, MRI April [...] MDReport Verified Date/Time: 01/19/2020 08:09:04 Reading Location: [facility] Diagnostic Imaging Reading Room - [place] [address] Electronically signed by: JOHN CROCKER MD on 0 01/19/2020 08:09 [facility], [id number] 07:59:00 Test Item Value Reference Range Interpretation [...] To Exercise midodrineConfirmed by fellow Bc Chávez ([id number]) on 01/18/2020 9:20:19 AMConfirmed by Shaq GARCIA MICHAEL([id number]) on 01/19/2020 7:03:55 [facility]COMPREHENSIVE METABOLIC PANEL 2020-01-19 05:21:00 Test Item Value [...] S NOT APPLICABLE FOR DIALYSIS PATIEN TS. Master Certified Rv Technician ID - LASpecimen moderately [id number] 05:04:00 Test Item Value Reference Range Interpretation Comments PHOSPHORUS (BEAKER) (test code = 3.3 mg/dL 2.3-4.7 604) Master Certified Rv Technician ID - [id number] 05:04:00 Test Item Value Reference Range Interpretation Comments MAGNESIUM (BEAKER) (test code = 2.0 mg/dL 1.6-2.6 627) Master Certified Rv Technician ID - LAHEPATIC FUNCTION [id number] 05:04:00 Test Item Value Reference Range Interpretation [...] (test code = 10 U/L 6-55 347) Master Certified Rv Technician ID - LASpecimen moderately ictericB-TYPE NATRIURETIC FACTOR (BNP) 2020-01-19 04:59:00 Test Item Value Reference Range Interpretation Comments B-TYPE NATRIURETIC PEPTIDE 2455 pg/mL 0-100 H (BEAKER) (test code = 700) Master Certified Rv Technician ID - EDWIN BCBC W/PLT COUNT & AUTO [id number] 04:46:00 Test Item Value Reference Range Interpretation [...] (BEAKER) (test code = 2801) U/S, RENAL, [id number] 01:26:00Referring: Dr. Rowdy Zhang for exam:->Re-examine L [...] Sneed MDReport Verified Date/Time: 01/19/202001:26:59 US renal [id number] 01:26:00Interface, External Ris In - 01/19/2020 1:29 [...] Signed: Maira Sneed Verified Date/Time: 01/19/2020 01:26:59 [facility] HospitalEosinophil [id number] 22:11:00 Test Item Value Reference Range Interpretation Comments Eosinophil Smear (test Rare EOS =less than No EOS seen A code = 78272-2) 5% WBCs seen are EOS Lab Interpretation (test Abnormal code = 54491-1) [facility] DistrictEOSINOPHIL SMEAR, [id number] 22:11:00 Test Item Value Reference Range Interpretation Comments EOSINOPHIL SMEAR, URINE Rare EOS =less than No EOS seen A (BEAKER) (test code = 5% WBCs seen are EOS 1851) SODIUM, RANDOM [id number] 22:04:00 Test Item Value Reference Range Interpretation Comments SODIUM URINE (BEAKER) (test code = < meq/L 243) Reference Range: No NormalsOperator ID - EDWIN BCreatinine, random urine 2020-01-18 22:02:00 Test Item Value Reference Range Interpretation Comments Creatinine, Ur 181.3 mg/dL (test code = 2161-8) VALENTE (test code = Reference Range: No VALENTE) NormalsOperator ID - EDWIN B [facility] DistrictProtein, random [id number] 22:02:00 Test Item Value Reference Range Interpretation Comments Protein, Urine (test code 45 mg/dL 0-14 H = 2888-6) VALENTE (test code = VALENTE) Master Certified Rv Technician ID - EDWIN B Lab Interpretation (test Abnormal code = 43347-4) [facility] DistrictCREATININE, RANDOM [id number] 22:02:00 Test Item Value Reference Range Interpretation Comments CREATININE URINE (BEAKER) (test 181.3 mg/dL code = 375) Reference Range: No NormalsOperator ID - EDWIN BPROTEIN, RANDOM [id number] 22:02:00 Test Item Value Reference Range Interpretation Comments PROTEIN, URINE (BEAKER) (test code = 45 mg/dL 0-14 H 1569) Master Certified Rv Technician ID - EDWIN BURINALYSIS W/ [id number] 22:02:00 Test Item Value Reference Range Interpretation [...] (test Urine, Sterile code = 2795) Collection Master Certified Rv Technician ID - [auto]Master Certified Rv Technician ID - techHepatitis B core antibody, [id number] 16:02:00 Test Item Value Reference Range Interpretation Comments Hep B Core Total Ab Nonreactive Nonreactive (test code = 94751-3) VALENTE (test code = VALENTE) Master Certified Rv Technician ID - CHARO Downs Lab Interpretation (test Normal code = 19190-6) [facility] DistrictHEPATITIS B CORE ANTIBODY, [id number] 16:02:00 Test Item Value Reference Range Interpretation Comments HEPATITIS B CORE TOTAL ANTIBODY Nonreactive Nonreactive (BEAKER) (test code = 497) Master Certified Rv Technician ID - CHARO FECG 12 [id number] 14:19:40Interface, External Ris In - 01/18/2020 2:19 PM CDTVentricular Rate 62 BPMAtrial Rate 62 BPMP-R Interval 138 msQRS Duration 86 msQ-T Interval 452 msQTC Calculation(Bazett) 458 msP [place] 59 degreesR [place] 32 degreesT [place] 56 degreesNormal sinus rhythmLow voltage QRSNonspecific ST [id number] JUN 2020 11:05Nonspecific T wave abnormality Nonspecific T wave abnormality, improved inQT has shortenedConfirmed by MD FARHAT, CARLOS ([id number]) on 01/18/2020 2:19:38 [facility] Cytomegalovirus antibody, [id number] 13:49:00 Test Item Value Reference Range Interpretation Comments CYTOMEGALOVIRUS, IGG Positive Negative, A (test code = 3429) Equivocal VALENTE (test code = VALENTE) CMV IgG Result Interpretation: </= 0.8 Al Negative 0.9-1.0 Al Equivocal >/=1.1 Al Positive Lab Interpretation (test Abnormal code = 10175-6) [facility] DistrictEBV-VCA antibody, [id number] 13:49:00 Test Item Value Reference Range Interpretation Comments GABRIEL CHING VIRAL Positive Negative, A CAPSID ANTIGEN IGG (test Equivocal code = 3415) VALENTE (test code = VALENTE) Gabriel Ching Viral Capsid Antigen IgG Result Interpretation: </= 0.8 Al Negative 0.9-1.0 Al Equivocal >/= 1.1 Al Positive Lab Interpretation (test Abnormal code = 69734-2) [facility] DistrictEBV-VCA antibody, [id number] 13:49:00 Test Item Value Reference Range Interpretation Comments GABRIEL CHING VIRAL Negative Negative, CAPSID ANTIGEN IGM (test Equivocal code = 3418) VALENTE (test code = VALENTE) Gabriel Ching Viral Capsid Antigen IgM Result Interpretation: </= 0.8 Al Negative 0.9-1.0 Al Equivocal >/= 1.1 Al Positive Lab Interpretation (test Normal code = 16917-2) [facility] DistrictCytomegalovirus antibody, [id number] 13:49:00 Test Item Value Reference Range Interpretation Comments CMV IGM (test code = Negative Negative, 3437) Equivocal VALENTE (test code = VALENTE) CMV IgM Result Interpretation: </= 0.8 Al Negative 0.9-1.0 Al Equivocal >/= 1.1 Al Positive Lab Interpretation (test Normal code = 44236-3) [facility] DistrictCYTOMEGALOVIRUS ANTIBODY, [id number] 13:49:00 Test Item Value Reference Range Interpretation Comments CYTOMEGALOVIRUS, IGG (BEAKER) Positive Negative, Equivocal A (test code = 3429) CMV IgG Result Interpretation: </= 0.8 Al Negative 0.9-1.0 Al Equivocal >/=1.1 Al PositiveCYTOMEGALOVIRUS ANTIBODY, [id number] 13:49:00 Test Item Value Reference Range Interpretation Comments CYTOMEGALOVIRUS IGM ANTIBODY Negative Negative, Equivocal (BEAKER) (test code = 3437) CMV IgM Result Interpretation: </= 0.8 Al Negative 0.9-1.0 Al Equivocal >/= 1.1 Al PositiveEBV ANTIBODY, [id number] 13:49:00 Test Item Value Reference Range Interpretation [...] Negative 0.9-1.0 Al Equivocal >/= 1.1 Al [id number] 13:35:00 Test Item Value Reference Range Interpretation Comments T3, Total (test code = 3053-6) 51 ng/dL 48-159 Lab Interpretation (test code = Normal 95084-5) [facility] [id number] 13:35:00 Test Item Value Reference Range Interpretation Comments T3 TOTAL (BEAKER) (test code = 656) 51 ng/dL 48-159 PET/CT, CARDIAC PERF REST AND [id number] 12:45:00Referring: Dr. Rowdy Zhang for exam:->pre op cardiac clearance for liver transplantFINAL REPORT PROCEDURE: MYOCARDIAL PERFUSION PET IMAGING (Rest/Stress)CPT CODE: 02685 INDICATION: Evaluation for liver transplant CARDIOVASCULAR PROFILE:Symptoms: [...] no prior study for comparison. Signed: Jennifer [facility] Verified Date/Time: 01/18/2020 12:45:40 Reading Location: [address] Reading Room [place] Myocardial Perfusion Pet/CT (Rest & Stress)2020-01-18 12:45:00Interface, External Ris In - 01/18/2020 12:47 PM CDTFINAL REPORT PROCEDURE: MYOCARDIAL PERFUSION PET IMAGING (Rest/Stress)CPT CODE: 31822 INDICATION: Evaluation for liver transplant CARDIOVASCULAR PROFILE:Symptoms: [...] MDReport Verified Date/Time: 01/18/2020 12:45:40 Reading Location: [address] Reading Room [place] [facility]IC FUNCTION [id number] 10:29:00 Test Item Value Reference Range Interpretation [...] (test code = 9 U/L 6-55 347) Master Certified Rv Technician ID - CHARO FSpecimen moderately ictericCBC W/PLT COUNT & AUTO [id number] 08:43:00 Test Item Value Reference Range Interpretation [...] CONCENTRATION Decreased (CELLAVISION)(BEAKER) (test code = 3438) Master Certified Rv Technician ID - [id number] ID - Lizett OverholtUser comments: Slide comments: [id number] 07:29:00 Test Item Value Reference Range Interpretation Comments MAGNESIUM (BEAKER) (test code = 2.1 mg/dL 1.6-2.6 627) Master Certified Rv Technician ID - CHARO FBASIC METABOLIC [id number] 07:29:00 Test Item Value Reference Range Interpretation [...] S NOT APPLICABLE FOR DIALYSIS PATIEN TS. Master Certified Rv Technician ID - CHARO FSpecimen moderately ictericAnti-Nuclear Antibody (REILLY) 2020-01-17 10:54:00 Test Item Value Reference Range Interpretation Comments REILLY (test code = 14798-9) Negative Negative VALENTE (test code = VALENTE) Test performed by IFA method.Test performed by IFA method. Lab Interpretation (test Normal code = 31606-4) [facility]I-NUCLEAR ANTIBODY (REILLY)2020-01-17 10:54:00 Test Item Value Reference Range Interpretation Comments ANTI-NUCLEAR ANTIBODY (REILLY) (BEAKER) Negative Negative (test code = 418) Test performed by IFA method.Test performed by IFA method.[id number] 10:49:00 Test Item Value Reference Range Interpretation Comments RPR (test code = 52011-7) Nonreactive Nonreactive Lab Interpretation (test code = Normal 94921-1) [facility] DistrictRPR2020-06-22 10:49:00 Test Item Value Reference Range Interpretation Comments RPR SCREEN (BEAKER) (test code = Nonreactive Nonreactive 420) CBC W/PLT COUNT & AUTO [id number] 10:00:00 Test Item Value Reference Range Interpretation [...] CONCENTRATION Decreased (CELLAVISION)(BEAKER) (test code = 3438) Master Certified Rv Technician ID - [id number] ID - Alem Mars comments: Slide comments:BASIC METABOLIC [id number] 05:16:00 Test Item Value Reference Range Interpretation [...] S NOT APPLICABLE FOR DIALYSIS PATIEN TS. Master Certified Rv Technician ID - PIAYA LSpecimen moderately fzpxjhwXKMIJKTMN6504-10-43 05:15:00 Test Item Value Reference Range Interpretation Comments MAGNESIUM (BEAKER) (test code = 2.1 mg/dL 1.6-2.6 627) Master Certified Rv Technician ID - PIAYA LPROTHROMBIN TIME/[id number] 04:50:00 Test Item Value Reference Range Interpretation [...] patients wiht mechanical heart valves.Vitamin B12 and [id number] 16:46:00 Test Item Value Reference Range Interpretation Comments Vitamin B12 (test code = 1107 pg/mL 213-816 H 2132-9) Folate (test code = 2284-8) 3.40 ng/mL >=7.00 L VALENTE (test code = VALENTE) Master Certified Rv Technician ID - NTP Lab Interpretation (test Abnormal code = 29814-1) [facility] DistrictVITAMIN B12 AND [id number] 16:46:00 Test Item Value Reference Range Interpretation Comments VITAMIN B12 (BEAKER) (test code = 1107 pg/mL 213-816 H 774) FOLATE (BEAKER) (test code = 362) 3.40 ng/mL >=7.00 L Master Certified Rv Technician ID - NTPLactate dehydrogenase (LDH)2020-01-16 12:57:00 Test Item Value Reference Range Interpretation Comments LDH (test code = 2532-0) 250 U/L 125-220 H VALENTE (test code = VALENTE) Master Certified Rv Technician ID - TUAN C Lab Interpretation (test Abnormal code = 59406-1) [facility] DistrictLACTATE DEHYDROGENASE (LDH)2020-01-16 12:57:00 Test Item Value Reference Range Interpretation Comments LACTATE DEHYDROGENASE (BEAKER) (test 250 U/L 125-220 H code = 635) Master Certified Rv Technician ID - TUAN CRETICULOCYTE [id number] 12:44:00 Test Item Value Reference Range Interpretation Comments RETICULOCYTE COUNT PCT (BEAKER) (test 5.0 % 0.5-1.7 H code = 575) Master Certified Rv Technician ID - 6000HIV-1 Antigen with HIV-1/2 Vhmsmsrz1552-81-74 12:17:00 Test Item Value Reference Range Interpretation Comments HIV-1 Antigen with HIV Nonreactive Nonreactive 1&2 Antibody (test code = 14827-6) VALENTE (test code = VALENTE) Master Certified Rv Technician ID - TUAN C Lab Interpretation (test Normal code = 56560-8) [facility] DistrictHIV-1 ANTIGEN WITH HIV-1/2 IEFYWCCD1415-23-00 12:17:00 Test Item Value Reference Range Interpretation Comments HIV-1 ANTIGEN WITH HIV 1\\T\\2 Nonreactive Nonreactive ANTIBODY (2) (BEAKER) (test code = 2586) Master Certified Rv Technician ID - TUAN SDqxgionppdr0567-63-26 12:02:00 Test Item Value Reference Range Interpretation Comments Haptoglobin (test code = <8 14-258 L 4542-7) VALENTE (test code = VALENTE) Master Certified Rv Technician ID - TUAN C Lab Interpretation (test Abnormal code = 15808-7) [facility] DistrictHAPTOGLOBIN2020-06-21 12:02:00 Test Item Value Reference Range Interpretation Comments HAPTOGLOBIN (KIRK) (test code = < mg/dL 14-258 L 366) Master Certified Rv Technician ID - TUAN CHemoglobin [id number] 09:01:00 Test Item Value Reference Range Interpretation Comments Hemoglobin A1C (test code = 4548-4) <3.8 4.3-6.1 L Lab Interpretation (test code = Abnormal 08933-1) [facility] DistrictHEMOGLOBIN [id number] 09:01:00 Test Item Value Reference Range Interpretation Comments HEMOGLOBIN A1C (KIRK) (test code = < % 4.3-6.1 L 368) U/S, ABDOMINAL, WITH [id number] 07:32:00Referring: Dr. Rowdy Mccarthy Reason for exam:->liver [...] MDReport Verified Date/Time: 01/16/2020 07:32:01 Reading Location: [address] Transitional Reading Room US abdominal with xvwxtfk9891-92-28 07:32:00Interface, External Ris In - 01/16/2020 7:34 [...] MDReport Verified Date/Time: 01/16/2020 07:32:01 Reading Location: [address] [facility]itional [facility] [id number] 04:41:00 Test Item Value Reference Range Interpretation [...] S NOT APPLICABLE FOR DIALYSIS PATIEN TS. Master Certified Rv Technician ID - PIDORIAN LSpecimen moderately raamneqPRUPFECZZ7456-90-96 04:38:00 Test Item Value Reference Range Interpretation Comments MAGNESIUM (BEAKER) (test code = 2.3 mg/dL 1.6-2.6 627) Master Certified Rv Technician ID - MITCH LHEPATIC FUNCTION [id number] 04:38:00 Test Item Value Reference Range Interpretation [...] (test code = 9 U/L 6-55 347) Master Certified Rv Technician ID - MITCH Jane moderately ictericPROTHROMBIN TIME/[id number] 04:36:00 Test Item Value Reference Range Interpretation [...] mechanical heart valves.CBC W/PLT COUNT & AUTO [id number] 04:29:00 Test Item Value Reference Range Interpretation [...] (BEAKER) (test code = 2801) Carotid doppler fkyjchjcb0876-20-82 00:34[facility]ART[facility] MKCKESSON CPACSRight Impression1. The internal, [...] AM CDTPV LAB - Carotid Duplex Study Demog [facility] Patient Name CICI ACLDERON Date of Study 01/15/2020 ALYSE Age 64 Visit Number [id number] Gender Female Accession Number [id number] Date of 1955 Referring [facility] Room Number 1515 Physician Acidizer Helper Herbert Lechuga Interpreting Chelsea Resendez T Physician ProcedureType of Study: Cerebral: Carotid, CAROTID [...] + + + - Additional Measurements:ICAPSV/CCAPSV 0.96.ICAEDV/CCAEDV 1.52.[facility] DistrictBlood typing, automated - - at seperate draw time from initial type and [id number] 20:34:00 Test Item Value Reference Range Interpretation Comments ABO/RH AUTOMATED (KIRK) (test A POSITIVE code = 2260) [facility] DistrictT42020-06-20 18:08:00 Test Item Value Reference Range Interpretation Comments T4, Total (test code = 4.3 ug/dL 4.9-11.7 L 3026-2) VALENTE (test code = VALENTE) Master Certified Rv Technician ID - NTP Lab Interpretation (test Abnormal code = 51107-6) [facility] DistrictT42020-06-20 18:08:00 Test Item Value Reference Range Interpretation Comments T4 TOTAL (KIRK) (test code = 895) 4.3 ug/dL 4.9-11.7 L Master Certified Rv Technician ID - ZOUFgpbnfwj9349-26-95 18:07:00 Test Item Value Reference Range Interpretation Comments Ferritin (test code = 489.86 ng/mL 5-275 H 2276-4) VALENTE (test code = VALENTE) Master Certified Rv Technician ID - NTP Lab Interpretation (test Abnormal code = 53071-4) [facility] DistrictFERRITIN2020-06-20 18:07:00 Test Item Value Reference Range Interpretation Comments FERRITIN (BEAKER) (test code = 489.86 ng/mL 5.00-275.00 H 361) Master Certified Rv Technician ID - NTPCT, CHEST, WITHOUT [id number] 17:57:00Referring: Dr. Rowdy LopestFINAL REPORT CT of [...] ascites. Small hiatal hernia. Signed: Roger Hampton MDReport Verified Date/Time: 01/15/2020 17:57:54 Reading Location: [address] Ortho Consult Reading Room CT chest without IV gkwitzpd3078-54-46 17:57:00Interface, External Ris In - 01/15/2020 6:00 [...] [place] Verified Date/Time: 01/15/2020 17:57:54 Reading Location: [facility] C013X Ortho Consult Reading Room [facility] 2020-01-15 17:27:00 Test Item Value Reference Range Interpretation Comments TSH (test code = 30410-2) 5.549 0.350- 4.940 uIU/mL H VALENTE (test code = VALENTE) Master Certified Rv Technician ID - DB Lab Interpretation (test Abnormal code = 89113-7) [facility] DistrictVitamin D, 48-Qqwlqxh0290-04-20 17:27:00 Test Item Value Reference Range Interpretation Comments Vitamin D 25-Hydroxy 6.2 ng/mL 6.6-49.9 L (test code = 2764) VALENTE (test code = VALENTE) Effective 05/07/2017: Reference Range ChangeNew: 6.6-49.9 ng/mL Previous: 13.0-47.8 ng/mL Recommended Vitamin D Target Range: 30.0-40.0 ng/mLOperator ID - DB Lab Interpretation (test Abnormal code = 95907-8) [facility] DistrictAlpha fetoprotein (AFP), tumor gttuza4384-14-95 17:27:00 Test Item Value Reference Range Interpretation Comments Alpha-Fetoprotein (test code <2.0 <10.0 ng/mL = 1834-1) VALENTE (test code = VALENTE) Master Certified Rv Technician ID - DB Lab Interpretation (test Normal code = 30901-9) [facility] DistrictVITAMIN D, 51-[id number] 17:27:00 Test Item Value Reference Range Interpretation Comments VITAMIN D 25-OH (BEAKER) (test code 6.2 ng/mL 6.6-49.9 L = 2764) Effective 05/07/2017: Reference Range ChangeNew: 6.6-49.9 ng/mL Previous: 13.0-47.8 ng/mLRecommended Vitamin D Target Range: 30.0-40.0 ng/mLOperator ID - [id number] 17:27:00 Test Item Value Reference Range Interpretation Comments THYROID STIMULATING HORMONE 5.549 uIU/mL 0.350-4.940 H (BEAKER) (test code = 772) Master Certified Rv Technician ID - DBALPHA FETOPROTEIN (AFP), TUMOR [id number] 17:27:00 Test Item Value Reference Range Interpretation Comments ALPHA-FETOPROTEIN (BEAKER) (test code < ng/mL <10.0 = 1094) Master Certified Rv Technician ID - DBHepatitis B surface ddpdnwa6971-42-97 17:25:00 Test Item Value Reference Range Interpretation Comments HBsAg Screen (test code Nonreactive Nonreactive = 5195-3) VALENTE (test code = VALENTE) Specimen is considered negative for HBsAg. Lab Interpretation (test Normal code = 71576-6) [facility] DistrictHepatitis B surface lgcnrhoh7047-43-68 17:25:00 Test Item Value Reference Range Interpretation Comments Hep B S Ab (test code = 25.0 <8.0 mIU/mL H 81481-7) VALENTE (test code = VALENTE) Master Certified Rv Technician ID - DB Lab Interpretation (test Abnormal code = 50980-2) [facility] DistrictHepatitis C [id number] 17:25:00 Test Item Value Reference Range Interpretation Comments Hepatitis C Ab (test code = Nonreactive Nonreactive 83363-8) VALENTE (test code = VALENTE) Master Certified Rv Technician ID - DB Lab Interpretation (test Normal code = 44570-7) [facility] DistrictHEPATITIS B SURFACE [id number] 17:25:00 Test Item Value Reference Range Interpretation Comments HEPATITIS B SURFACE ANTIGEN (2) Nonreactive Nonreactive (BEAKER) (test code = 2585) Specimen is considered negative for HBsAg.HEPATITIS B SURFACE [id number] 17:25:00 Test Item Value Reference Range Interpretation Comments HEPATITIS B SURFACE ANTIBODY 25.0 mIU/mL <8.0 H (BEAKER) (test code = 647) Master Certified Rv Technician ID - DBHEPATITIS C [id number] 17:25:00 Test Item Value Reference Range Interpretation Comments HEPATITIS C ANTIBODY (BEAKER) Nonreactive Nonreactive (test code = 367) Master Certified Rv Technician ID - DBCarcinoembryonic Antigen (CEA)2020-01-15 17:23:00 Test Item Value Reference Range Interpretation Comments CEA, SERUM (test code = 7.9 ng/mL 0-5 H 2038-) VALENTE (test code = VALENTE) Master Certified Rv Technician ID - DB Lab Interpretation (test Abnormal code = 54205-0) [facility] DistrictHelake cumberland regional hospitaltis B core antibody, [id number] 17:23:00 Test Item Value Reference Range Interpretation Comments Hep B C IgM (test code = Nonreactive Nonreactive 50698-2) VALENTE (test code = VALENTE) Master Certified Rv Technician ID - DB Lab Interpretation (test Normal code = 16180-9) [facility] DistrictHepatitis A antibody, [id number] 17:23:00 Test Item Value Reference Range Interpretation Comments Hep A IgM (test code = Nonreactive Nonreactive 00754-3) VALENTE (test code = VALENTE) Master Certified Rv Technician ID - DB Lab Interpretation (test Normal code = 52047-0) [facility] DistrictCARCINOEMBRYONIC ANTIGEN (CEA)2020-01-15 17:23:00 Test Item Value Reference Range Interpretation Comments CARCINOEMBRYONIC ANTIGEN (BEAKER) 7.9 ng/mL 0.0-5.0 H (test code = 685) Master Certified Rv Technician ID - DBHEPATITIS B CORE ANTIBODY, [id number] 17:23:00 Test Item Value Reference Range Interpretation Comments HEPATITIS B CORE IGM ANTIBODY Nonreactive Nonreactive (BEAKER) (test code = 645) Master Certified Rv Technician ID - DBHEPATITIS A ANTIBODY, [id number] 17:23:00 Test Item Value Reference Range Interpretation Comments HEPATITIS A IGM ANTIBODY (BEAKER) Nonreactive Nonreactive (test code = 498) Master Certified Rv Technician ID - DBRAD, MANDIBLE, MIN 4 [id number] 17:22:00Referring: Dr. Rowdy Zhang for exam:->liver transplant [...] Alvarado Verified Date/Time: 01/15/2020 17:22:12 Reading Location: [address] Transitional Reading Room XR mandible min 4 gdswb9272-67-94 17:22:00Interface, External Ris In - 01/15/2020 5:24 [...] Alvarado Verified Date/Time: 01/15/2020 17:22:12 Reading Location: [address] [facility], 2 [id number] 17:16:00Referring: Dr. Rowdy Zhang for exam:->liver transplant [...] of chronic interstitial lung disease. Signed: Albaro Alvaradojohn j. [facility] Verified Date/Time: 01/15/2020 17:16:49 Reading Location: [address] Transitional Reading Room XR chest 2 [id number] 17:16:00Interface, External Ris In - 01/15/2020 5:19 [...] Alvarado Verified Date/Time: 01/15/2020 17:16:49 Reading Location: [address] Transitional Reading Room [facility] 2D Echo W/Doppler(CW/PW/Color)2020-01-15 17:15:41Ejection FractionSLEH ECHO HEARTLAB MKCKESSON CPACSInterface, External Ris In - 01/15/2020 5:15 PM C DTTransthoracic Echocardiography Report (TTE) Demographics Patient Name CICI CALDERON Date of Study 01/15/2020 ALYSE Gender Female Visit Number [id number] Race Unknown Room Number 1515 Number Date of 1955 Referring Physician Ren Hernandez MD Age 64 year(s) Acidizer Helper Lisa Bautista CS Interpreting Jai Arreguin MD Physician Procedure Type [...] CO: 7.05 l/min LVOT CI: 3.67 l/min/m^2CH[facility] CampusCOMPREHENSIVE METABOLIC [id number] 17:06:00 Test Item Value Reference Range Interpretation [...] S NOT APPLICABLE FOR DIALYSIS PATIEN TS. Master Certified Rv Technician ID - NTPSpecimen moderately uvbtdznTfgptbisvo6477-46-95 17:03:00 Test Item Value Reference Range Interpretation Comments Fibrinogen (test code = 3255-7) 114 mg/dl 225-434 L Lab Interpretation (test code = Abnormal 91895-9) [facility] DistrictFIBRINOGEN2020-06-20 17:03:00 Test Item Value Reference Range Interpretation Comments FIBRINOGEN LEVEL (BEAKER) (test 114 mg/dl 225-434 L code = 658) [id number] 17:00:00 Test Item Value Reference Range Interpretation Comments Transferrin (test code = 102 mg/dL 174-382 L 3034-6) VALENTE (test code = VALENTE) Master Certified Rv Technician ID - DBSpecimen moderately icteric Lab Interpretation (test Abnormal code = 77498-7) [facility] DistrictIron, TIBC, % sat. (without ferritin)2020-01-15 17:00:00 Test Item Value Reference Range Interpretation Comments Iron (test code = 2498-4) 144.0 ug/dL 40-160 TIBC (test code = 2500-7) 129 ug/dL 250-450 L Iron % Saturation (test code 112 % 20-55 H = 2502-3) VALENTE (test code = VALENTE) Master Certified Rv Technician ID - DB Lab Interpretation (test Abnormal code = 05460-9) [facility] DistrictTRANSFERRIN2020-06-20 17:00:00 Test Item Value Reference Range Interpretation Comments TRANSFERRIN (BEAKER) (test code = 102 mg/dL 174-382 L 541) Master Certified Rv Technician ID - DBSpecimen moderately ictericIRON, TIBC, % SAT. (WITHOUT FERRITIN) 2020-01-15 17:00:00 Test Item Value Reference Range Interpretation Comments IRON (BEAKER) (test code = 547) 144.0 ug/dL 40.0-160.0 TOTAL IRON BINDING CAPACITY 129 ug/dL 250-450 L (BEAKER) (test code = 769) IRON % SATURATION (2) (BEAKER) 112 % 20-55 H (test code = 2590) Master Certified Rv Technician ID - BIYnayx-5-nmetpkdymvl1926-06-20 16:59:00 Test Item Value Reference Range Interpretation Comments A-1 Antitrypsin (test code = 121.20 mg/dL 90-200 1825-9) VALENTE (test code = VALENTE) Master Certified Rv Technician ID - DB Lab Interpretation (test Normal code = 91345-3) [facility] DistrictBILIRUBIN, [id number] 16:59:00 Test Item Value Reference Range Interpretation Comments BILIRUBIN DIRECT 1.6 mg/dL 0.1-0.5 H Specimen sl ightly (BEAKER) (test code = hemoly zed 706) Master Certified Rv Technician ID - KKIOVLSP-3-DEXFPZGAUGH1830-06-20 16:59:00 Test Item Value Reference Range Interpretation Comments ALPHA-1 ANTITRYPSIN (BEAKER) 121.20 mg/dL 90.00-200.00 (test code = 502) Master Certified Rv Technician ID - HUItguwre2188-00-62 16:58:00 Test Item Value Reference Range Interpretation Comments Ethanol Lvl (test code = <10 <=10 mg/dL 5643-2) VALENTE (test code = VALENTE) Master Certified Rv Technician ID - DB Lab Interpretation (test Normal code = 67044-9) [facility] DistrictaPTT2020-06-20 16:58:00 Test Item Value Reference Range Interpretation Comments PTT (test code = 88438-7) 36.8 22.5- 36.0 seconds H Lab Interpretation (test code = Abnormal 58656-2) [facility] DistrictAPTT2020-06-20 16:58:00 Test Item Value Reference Range Interpretation Comments PARTIAL THROMBOPLASTIN TIME 36.8 seconds 22.5-36.0 H (BEAKER) (test code = 760) [id number] 16:58:00 Test Item Value Reference Range Interpretation Comments ETHANOL (BEAKER) (test code = 400) < mg/dL <=10 Master Certified Rv Technician ID - DBPROTHROMBIN TIME/ATN3218-46-15 16:57:00 Test Item Value Reference Range Interpretation [...] is2.5-3.5 for patients wiht mechanical heart valves.CALCIUM, [id number] 16:45:00 Test Item Value Reference Range Interpretation Comments CALCIUM IONIZED (BEAKER) (test 1.08 mmol/L 1.12-1.27 L code = 698) PH, BLOOD (BEAKER) (test code = 7.38 1810) CREATININE, RANDOM [id number] 13:46:00 Test Item Value Reference Range Interpretation Comments CREATININE URINE (BEAKER) (test 280.7 mg/dL code = 375) Reference Range: No NormalsOperator ID - NTPSODIUM, RANDOM [id number] 13:46:00 Test Item Value Reference Range Interpretation Comments SODIUM URINE (BEAKER) (test code = < meq/L 243) Reference Range: No NormalsOperator ID - NTPHepatitis panel, [id number] 13:05:00 Test Item Value Reference Range Interpretation Comments Hep A IgM (test code = Nonreactive Nonreactive 44629-1) Hep B C IgM (test code = Nonreactive Nonreactive 77490-7) Hepatitis C Ab (test code = Nonreactive Nonreactive 11498-9) HBsAg Screen (test code = Nonreactive Nonreactive 5195-3) VALENTE (test code = VALENTE) Master Certified Rv Technician ID - NTP Lab Interpretation (test Normal code = 50824-5) [facility] DistrictHEPATITIS PANEL, [id number] 13:05:00 Test Item Value Reference Range Interpretation Comments HEPATITIS A IGM ANTIBODY (BEAKER) Nonreactive Nonreactive (test code = 498) HEPATITIS B CORE IGM ANTIBODY Nonreactive Nonreactive (BEAKER) (test code = 645) HEPATITIS C ANTIBODY (BEAKER) Nonreactive Nonreactive (test code = 367) HEPATITIS B SURFACE ANTIGEN (2) Nonreactive Nonreactive (BEAKER) (test code = 2585) Master Certified Rv Technician ID - NTPLipid kgfua1602-20-58 11:51:00 Test Item Value Reference Range Interpretation Comments Triglycerides (test 86 mg/dL code = 2571-8) Cholesterol (test code 101 mg/dL = 2093-3) HDL (test code = 12 mg/dL 2085-9) LDL Calculated (test 72 mg/dL code = 65777-0) VALENTE (test code = VALENTE) Triglyceride Reference Range: Low Risk <150 Borderline 150-199 High Risk 200-499 Very High Risk >=500 Cholesterol Reference Range: Low Risk <200 Borderline 200-239 High Risk >240 HDL Cholesterol Reference Range: Low Risk >=60 High Risk <40 LDL Cholesterol Reference Range: Optimal <100 Near Optimal 100-129 Borderline 130-159 High 160-189 Very High >=190 Master Certified Rv Technician ID - NTPSpecimen moderately icteric [facility] DistrictGamma Glutamyl Transferase (GGT)2020-01-15 11:51:00 Test Item Value Reference Range Interpretation Comments GGT (test code = 2324-2) 15 U/L 9-64 VALENTE (test code = VALENTE) Master Certified Rv Technician ID - NTPSpecimen moderately icteric Lab Interpretation (test Normal code = 06191-0) [facility] DistrictUric [id number] 11:51:00 Test Item Value Reference Range Interpretation Comments Uric Acid (test code = 15.7 mg/dL 2.6-7.2 H 3084-1) VALENTE (test code = VALENTE) Master Certified Rv Technician ID - NTPSpecimen moderately icteric Lab Interpretation (test Abnormal code = 34583-9) [facility] CampusURIC [id number] 11:51:00 Test Item Value Reference Range Interpretation Comments URIC ACID (BEAKER) (test code = 15.7 mg/dL 2.6-7.2 H 773) Master Certified Rv Technician ID - NTPSpecimen moderately ictericLIPID [id number] 11:51:00 Test Item Value Reference Range Interpretation [...] Borderline 130-159 High 160-189 Very High >=190 Master Certified Rv Technician ID - NTPSpecimen moderately naraudcAHXKSNGUCE0002-80-51 11:51:00 Test Item Value Reference Range Interpretation Comments PHOSPHORUS (BEAKER) (test code = 4.5 mg/dL 2.3-4.7 604) Master Certified Rv Technician ID - NTPGAMMA GLUTAMYL TRANSFERASE (GGT)2020-01-15 11:51:00 Test Item Value Reference Range Interpretation Comments GAMMA GLUTAMYL TRANSFERASE (BEAKER) 15 U/L 9-64 (test code = 364) Master Certified Rv Technician ID - NTPSpecimen moderately ictericCBC W/PLT COUNT & AUTO [id number] 11:25:00 Test Item Value Reference Range Interpretation [...] CONCENTRATION Decreased (CELLAVISION)(BEAKER) (test code = 3438) Master Certified Rv Technician ID - [id number] ID - Ana Laura HeMeghanwest comments: Slide comments: [id number] 10:20:00 Test Item Value Reference Range Interpretation Comments MAGNESIUM (BEAKER) (test code = 2.2 mg/dL 1.6-2.6 627) Master Certified Rv Technician ID - KEZPpzfrbo3468-29-57 08:57:00 Test Item Value Reference Range Interpretation Comments Ammonia (test code = 19 18- 72 mol/L 81671-2) VALENTE (test code = VALENTE) Master Certified Rv Technician ID - NTP Lab Interpretation (test Normal code = 89848-8) [facility] DistrictAMMONIA2020-06-20 08:57:00 Test Item Value Reference Range Interpretation Comments AMMONIA (BEAKER) (test code = 348) 19 mol/L 18-72 Master Certified Rv Technician ID - NTPHEPATIC FUNCTION [id number] 05:21:00 Test Item Value Reference Range Interpretation [...] (test code = 12 U/L 6-55 347) Master Certified Rv Technician ID - DALTON MSpecimen moderately ictericBASIC METABOLIC [id number] 05:15:00 Test Item Value Reference Range Interpretation [...] S NOT APPLICABLE FOR DIALYSIS PATIEN TS. Master Certified Rv Technician ID - DALTON MSpecimen moderately ictericPROTHROMBIN [id number] 04:37:00 Test Item Value Reference Range Interpretation [...] Detected Not Detected, (test code = Negative 56380-2) SARS-COV-2 [facility] PERFORMING LAB (test code = 64307-9) [facility] (test code = Negative results do [...] of the Act. Fact Sheet for Healthcare Providers:https://www.ZipZap/Documents/Xper t%20Xpress%20SARS%20CoV- 2/Fact%20Sheets/3023802 %19UZMH-SOQ-3%20HEALTHCA RE%20PROVIDERS%20FACT%20 SHEET.pdf Fact Sheet for Healthcare Patients:https://www.Reverb.com/Documents/Xpert %20Xpress%20SARS%20CoV-2 /Fact%20Sheets/3023801% 37CZUI-KOW-2%20PATIENT%2 0FACT%20SHEET.pdf Performing Laboratory:[id number] [place], [place] [address]ARS-COV2/RT-PCR ([facility])2020-01-15 01:48:00 Test Item Value Reference Range Interpretation Comments SARS-COV2/RT-PCR (test Not Detected Not Detected, Negative code = 7316584) SARS-COV-2 PERFORMING LAB [facility] (test code = 3372164) Negative results do not preclude SARS-CoV-2 infection [...] of the Act.Fact Sheet for Healthcare Pro viders:https://www.Backlift/Documents/Xpert%20Xpress%20SARS%20CoV-2/Fact%20Sh eets/302-3802%91ROHS-UBS-6%20HEALTHCARE%20PROVIDERS%20FACT%20SHEET.pdfFact Sheet for Healthcare Patients:https://www.[employer]/Documents/Xpert%20Xpress%20SARS%20CoV-2/Fact%20Sheets/302-3801%20SARS-COV -2%20PATIENT%20FACT%20SHEET.pdfPerforming Laboratory:[facility], [place] [address]MNNXU METABOLIC [id number] 22:40:00 Test Item Value Reference Range Interpretation [...] S NOT APPLICABLE FOR DIALYSIS PATIEN TS. Master Certified Rv Technician ID - DBSpecimen moderately ictericHEPATIC FUNCTION [id number] 22:39:00 Test Item Value Reference Range Interpretation [...] Specimen slightly (test code = 347) hemolyzed Master Certified Rv Technician ID - DBSpecimen moderately ictericPROTHROMBIN [id number] 22:28:00 Test Item Value Reference Range Interpretation [...] mechanical heart valves.CBC W/PLT COUNT & AUTO [id number] 22:22:00 Test Item Value Reference Range Interpretation [...] code = 2801) ALPHA FETOPROTEIN (AFP), TUMOR [id number] 18:31:00 Test Item Value Reference Range Interpretation Comments ALPHA-FETOPROTEIN (BEAKER) (test code < ng/mL <10.0 = 1094) Master Certified Rv Technician ID - DBBASIC METABOLIC [id number] 15:23:00 Test Item Value Reference Range Interpretation [...] S NOT APPLICABLE FOR DIALYSIS PATIEN TS. Master Certified Rv Technician ID - BSPlease sent STATSpecimen moderately ictericHEPATIC FUNCTION [id number] 15:18:00 Test Item Value Reference Range Interpretation [...] (test code = 17 U/L 6-55 347) Master Certified Rv Technician ID - BSPlease sent STATSpecimen moderately ictericPROTHROMBIN [...] for patients wiht mechanical heart valves.Please sent [facility] W/PLT COUNT & AUTO [id number] 15:05:00 Test Item Value Reference Range Interpretation [...] (BEAKER) (test code = 2801) CT, ABDOMEN, [id number] 15:58:00Referring: Dr. Reno SweattFINAL REPORT CT OF [...] MDReport Verified Date/Time: 05/02/2017 15:58:35 Reading Location: [facility] C013Y CT Body Reading Room CBC W/PLT COUNT & AUTO [id number] 17:30:00 Test Item Value Reference Range Interpretation [...] code = 417) 0.00ALPHA FETOPROTEIN (AFP), TUMOR [id number] 16:31:00 Test Item Value Reference Range Interpretation Comments ALPHA-FETOPROTEIN (BEAKER) (test 3.3 ng/mL <10.0 code = 1094) Effective 06/14/2014: Reference Range ChangeNew: <10.0 Previous: 0.0-8.0 BASIC METABOLIC [id number] 16:13:00 Test Item Value Reference Range Interpretation [...] FOR DIALYSIS PATIEN TS. Specimen slightly ictericLIPID [id number] 16:13:00 Test Item Value Reference Range Interpretation [...] Very High >=190 Specimen slightly ictericHEPATIC FUNCTION [id number] 16:13:00 Test Item Value Reference Range Interpretation [...] (test code = 364) Specimen slightly ictericPROTHROMBIN [id number] 16:13:00 Test Item Value Reference Range Interpretation [...]
--- OUTSIDE RECORDS SUMMARY | 2020-03-06 13:16 | XMS REPORT ---
:1955 Author Organization eClinicalWorks Care Team Providers Name Role Phone Mitzy English Provider Role Unavailable Allergies, Adverse Reactions, Alerts Substance Reaction Event Type Tetracycline HCl hives Drug Allergy Levaquin vomiting/diarrhea Drug Allergy Erythromycin vomiting/diarrhea Drug Allergy Problems Problem Type Condition Code Onset Dates Condition Statu s Problem GERD without esophagitis K21.9 Act roaslba Problem Urinary tract infection, site not N39.0 Active specified Problem Encounter for general adult medical Z00.01 Active examination with abnormal findings Problem Hospital discharge follow-up Z09 Active Problem Jaundice R17 Active Problem Centrilobular emphysema J43.2 Acti ve Problem Acute cystitis with hematuria N30.01 Active Problem Dysuria R30.0 Active Problem 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 25726661791 550 MG Orally Active 1 tabl et Twice a day Folic Acid ND 82664092374 1 MG Orally Active 1 tab let Once a day Spironolactone [facility] 45066718844 25 MG Orally Active 1 tablet Vitamin D2 [facility] 53164496551 10 MCG (400 Active 2 tab lets UNIT) Orally Once a day Albuterol Sulfate [facility] 05133658243 108 (90 Base) October Acti ve 1 puff as HFA MCG/ACT , needed Inhalation 2019 every 6 hrs Calcitriol [facility] 29047407634 0.5 MCG Orally Active 1 capsule Once a day MagOx [address] [facility] 90836598915 400 (241.3 Mg) Active 1 t ablet MG Orally Once with food a day Lactulose [facility] 70202069022 20 GM/30ML Active 15 ml Orally Once a day Tramadol HCl [facility] 78372698527 50 MG Orally Active 1 tablet as Once a day needed Midodrine HCl [facility] 47998868106 2.5 MG Orally Active 1 tablet Three times a day Cimetidine [facility] 52970003184 200 MG Orally Active 1 t ablet as Once a day needed Pantoprazole [facility] [address]-19 40 MG Orally Active 1 packet Sodium Once a day mixed with apple juice or applesauce Results No Known Results Summary Purpose eClinicalWorks Submission
--- OUTSIDE RECORDS SUMMARY | 2020-03-06 13:16 | XMS REPORT ---
[...] Status Dosage System Date Date Calcitriol ND 88146477880 0.5 MCG Orally Active 1 capsule Once a day Albuterol [facility] 85070927565 108 (90 Base) November 03, Active 1 puff as Sulfate HFA MCG/ACT 2019 needed Inhalation every 6 hrs Lactulose ND 32782047014 20 GM/30ML Active 15 ml Orally Once a day Cimetidine ND 40011972190 200 MG Orally Active 1 t ablet Once a day as needed Results No Known Results Summary Purpose eClinicalWorks Submission
--- OUTSIDE RECORDS SUMMARY | 2020-03-06 13:16 | XMS REPORT ---
[...] Active diameter Problem Wheezing R06.2 Active Assessment Pain in right leg M79.604 Active Assessment Pain in left leg M79.605 Active Assessment Rash R21 Active Assessment Encounter for screening mammogram Z12.31 Active for malignant neoplasm of breast Problem Hematuria, unspecified R31.9 Activ e Assessment ARAUZ (nonalcoholic steatohepatitis) K75.81 Active Problem ARAUZ (nonalcoholic steatohepatitis) K75.81 Active Medications Medication Code Code Instructions Start End Status Dosage System Date Date Gabapentin ND 19938549597 100 MG Orally January Active 1 c apsule Once a day 2019 Lactulose ND 42873682700 20 GM/30ML Active 15 ml Orally Once a day Cimetidine ND 99806279601 200 MG Orally Active 1 t ablet as Once a day needed Albuterol ND 52321032610 108 (90 Base) October Active 1 pu ff as Sulfate HFA MCG/ACT 09, needed Inhalation 2019 every 6 hrs Calcitriol ND 19549668616 0.5 MCG Orally Active 1 capsule Once a day Triamcinolone ND 86949741827 0.1 % January Active 1 appl ication Acetonide Externally , Twice a day 2019 Results No Known Results Immunizations Vaccine Administration Date Hepatitis A (adult) February 21, 2020 Hepatitis B (adult) February 21, 2020 Summary Purpose eClinicalWorks Submission
[2020-03-06 13:43] VITALS: BP 121/58; TEMP 98.2; O2SAT 99; BMI 16.6
[2020-03-06 19:03] LABS: Appearance CLEAR (CLEAR); Body Fluid Source PERITONEAL; Color of fluid Yellow (COLORLESS)
[2020-03-06 19:07] LABS: Body Fluid WBC 71 /mm^3
== END 2020-03-06 12:19 | disposition home or self-care (01) ==
LOC: DS 08:32
PROVIDERS: ATTEND Internal Medicine Gastroenterology
DX: R18.8 Other ascites (principal); K70.0 Alcoholic fatty liver; K74.69 Other cirrhosis of liver; R14.0 Abdominal distension (gaseous)
CPT/HCPCS: 87070; 36415; 89050; 96365; 49083; P9047 ×2

== ENCOUNTER → 2020-03-20 | Day surgery (SDC) | payer OTHER ==
[~2020-03-20] MED LIST: ALBUMIN HUMAN 25% 200 ML IV ONE
--- OUTSIDE RECORDS SUMMARY | 2020-03-20 09:28 | XMS REPORT | Clinical Summary ---
:1955 Author Organization [facility] Address [address] [place] [address] Care Team Providers Name Role Phone Nahun [...] of 2 - PCV13) 2019 INFLUENZA VACCINE 04/27/2020 Results Not on fileafter 03/20/2019 Advance Directives For more information, please contact: [phone] Type Date Recorded Patient Applications Specialist Explanati on Advance Directives, Living Will and Medical Power of Cracking Machine Operator
--- OUTSIDE RECORDS SUMMARY | 2020-03-20 09:31 | XMS REPORT | Clinical Summary ---
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, unspecified hepatic cirrhosis type (HCC) 03/09/2020 Orders Only Transplant Hepatology Cary Talley Pre- transplant evaluation for liver transplant; R, RN 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, unspecified hepatic cirrhosis type (HCC) 03/08/2020 Telephone Transplant Hepatology Cary Talley ow-up R, RN 03/06/2020 Telephone Transplant Hepatology Cary Talley ow-up R, RN 03/06/2020 Telephone Transplant Hepatology Cary Talley labs due R, RN 02/16/2020 Documentation Transplant Hepatology Hamilton, Jose Miguelblake 02/16/2020 Documentation Transplant Hepatology [place], [facility] 02/16/2020 Documentation Central Scheduling [place], [facility] 02/16/2020 Orders Only Transplant Hepatology Cary Talley Cirr hosis of liver without ascites, unspecified [...] Areli Hein RN 02/14/2020 Documentation Transplant Hepatology [place], [place] 02/11/2020 Telephone Hepatology Dai Rios MA (confirm) 02/08/2020 Telephone Transplant Hepatology Cary Talley ow-up R, RN 02/08/2020 Orders Only Transplant Hepatology Cary Talley Pre- transplant evaluation for liver transplant; R, RN 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, unspecified hepatic cirrhosis type (HCC) 02/07/2020 Orders Only Transplant Hepatology Cary Talley Pre- transplant evaluation for liver transplant; R, RN 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, unspecified hepatic cirrhosis type (HCC) 02/03/2020 Orders Only Hepatology Larry, Line Hepatic Kastrup, [employer]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) 02/03/2020 Documentation Hepatology Kristofer Cross MD 02/02/2020 Telephone Transplant Hepatology Cary Talley R, RN 02/01/2020 UNOS Charge Visit Transplant Hepatology Rito Saini irrhosis of liver Ildefonso Spencer MD without ascites , unspecified hep atic cirrhosis type (HCC) 02/01/2020 Documentation Transplant Hepatology [place] 02/01/2020 Abstract Transplant Hepatology Cary Talley R, RN 02/01/2020 Telephone Hepatology PRIOR Herber AUTH (XIF AXAN) Janya 02/01/2020 Orders Only Transplant Hepatology Cary Talley Pre- transplant evaluation for liver transplant (Primary Dx); R, RN 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, unspecified hepatic cirrhosis type (HCC) 02/01/2020 Telephone Transplant Hepatology Cary Talley Labs Only R, RN 01/31/2020 Documentation Intensive Care Al-Atwood, Rudorcas Conrad 01/31/2020 Documentation Transplant Hepatology Cary Talley R, RN 01/31/2020 Telephone Transplant Hepatology Cary Talley othe r R, RN 01/31/2020 Telephone Transplant Hepatology Cary Talley endo crine clearance R, RN 01/21/2020 Abstract Transplant Hepatology Law, Poonam R 01/20/2020 Documentation Transplant Hepatology Law, Poonam R 01/20/2020 Abstract Transplant Hepatology Inge Salazar MA 01/19/2020 Surgery Nallely, R & L CATH / MD Brian CORONARY ANGIOS (+/- LV) 01/18/2020 Outside Orders Radiology Mitzy English, [employer] 01/17/2020 Anesthesia Event Gastroenterology Tigist Colvin HIGH LEAD YARDER 01/17/2020 Surgery Gastroenterology Sylvie George UPPER MD ENDOSCOPY,BIOPS Y 01/15/2020 Documentation Transplant Hepatology Cheryle Fischer Cirwest hosis of liver without ascites, unspecified hepatic [...] Talley ening for malignant neoplasm (Primary Dx); West RN Encounter for p re-transplant evaluation for [...] Kadie Larry Obesity (BMI 35.0-39.9 without comorbidity); Yvette, [employer]ER Adrenal mass, l eft ; Screening for m alignant neoplasm; Elevated serum creatinine; Other ascites 12/31/2019 Telephone Hepatology Dai Healy MA 12/21/2019 Documentation Hepatology Kadie Larry FNP 12/17/2019 Abstract Hepatology Ivanna Healy MA 12/16/2019 Abstract Hepatology Janna Aparicio RN 12/16/2019 Abstract Hepatology Janna Aparicio RN 12/16/2019 Abstract Hepatology Janna Aparicio RN 12/15/2019 Audio - Hepatology Kadie Larry Portal hypert ension (Primary Dx); Telemedicine Kastrdayron, [employer] 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); Obesity (BMI 35 .0-39.9 without comorbidity); Adrenal mass, l eft ; Screening for m alignant neoplasm 12/14/2019 Telephone Hepatology Glynn, Dai De La Fuente MA after 03/20/2019 Family History Medical History Relation Name Comments [...] 04/11/2020 Follow-Up Transplant Hepatology Whitney Cross MD [address] [address] 0 [phone] 04/11/2020 Appointment Kristofer Cross MD [address] [address] 0 [phone] Health Maintenance Due Date Last Done Comments BREAST CANCER SCREENING 1955 CERVICAL CANCER SCREENING PAP ONLY (Age 1207/08/1976 21-65) PNEUMOCOCCAL 65+ LOW/MEDIUM RISK (1 of 2 - 2019 PCV13) Medicare IPPE (WELCOME TO MEDICARE) 07/28/2019 INFLUENZA VACCINE (#1) 2020 LIPID PANEL 01/14/2023 01/15/2020, 10/23/2016 COLON CANCER SCREENING COLONOSCOPY 01/16/2030 01/17/2020 Procedures Procedure Name Priority Date/Time Associated Comments Diagnosis BILIRUBIN, DIRECT STAT 03/10/2020 8:03 Pre-transplant Resu lts for this AM CDT evaluation for procedure are in liver transplant the results Cirrhosis of liver section. without ascites, unspecified hepatic cirrhosis type (HCC) CBC W/PLT COUNT & STAT 03/10/2020 8:03 Pre-transplant Resu lts for this AUTO DIFFERENTIAL AM CDT evaluation for procedur e are in liver transplant the results Cirrhosis of liver section. without ascites, unspecified hepatic cirrhosis type (HCC) COMPREHENSIVE STAT 03/10/2020 8:03 Pre-transplant Results for this METABOLIC PANEL AM CDT evaluation for procedure are in liver transplant the results Cirrhosis of liver section. without ascites, unspecified hepatic cirrhosis type (HCC) PROTHROMBIN TIME/INR STAT 03/10/2020 8:03 Pre-transplant R esults for this AM CDT evaluation for procedure are in liver transplant the results Cirrhosis of liver section. without ascites, unspecified hepatic cirrhosis type (HCC) CBC W/PLT COUNT & Routine 02/15/2020 12:29 [...] procedure are i n the results section. [id number] AP Routine 01/19/2020 9:43 PHENOTYP PM CDT [...] 452 ms QTC Calculation(Bazett) 458 ms P Parma 59 degrees R Parma 32 degrees T Parma 56 degrees Normal sinus rhythm Normal ECG [...] procedure are i n the results section. [id number]\\, Routine 01/15/2020 4:17 Re sults for this [...] are i n the results section. SARS-COV2/RT-PCR ([facility] STAT 01/14/2020 7:28 R esults for [...] results hepatic cirrhosis section. type (HCC) after 03/20/2019 Results Prothrombin time/INR (03/10/2020 8:03 AM CDT)Only the most recent of18 results within the time period is included. INR 1.3 (H) [facility] Comment: Reference Range 0.9-1.1 Moderate-intensity Warfarin Therapy 2.0-3.0 Higher-intensity Warfarin Therapy 3.0-4.0 PT 13.3 (H) 9.0 - 11.5 sec [facility]ICO Comment: For more information on this test, go to: http://education.questdiagnostics.Tookitaki/faq/HSQ325 Specimen Blood Narrative Performed At FASTING:YES [facility] FASTING: YES Resulting Agency Comment Performing Organization Information: Site ID: [id number] Name: [facility] Address: [address] [place] [address] [place] [address] Director: Jj Carrasco Performing Organization Address City/State/Zipcode Phone Number [facility] [address] [place] [address] [facility] CBC with platelet count + automated diff (03/10/2020 8:03 AM CDT)Only the most recent of3 resultswithin the time period is included. WBC 2.7 (L) 3.8 - 10.8 Thousand/uL [facility] RBC 2.38 (L) 3.80 - 5.10 Million/uL [facility] Hemoglobin 9.2 (L) 11.7 - 15.5 g/dL [facility] Hematocrit 25.3 (L) 35.0 - 45.0 % [facility] MCV 106.3 (H) 80.0 - 100.0 fL [facility] MCH 38.7 (H) 27.0 - 33.0 pg [facility] MCHC 36.4 (H) 32.0 - 36.0 g/dL [facility] RDW 12.7 11.0 - 15.0 % [facility] Platelets 60 (L) 140 - 400 Thousand/uL [facility] Comment: Review of the peripheral smear reveals decreased numbers of platelets. MPV 11.6 7.5 - 12.5 fL [facility] # Neutros 1,480 (L) 1,500 - 7,800 cells/uL [facility] # Lymphs 664 (L) 850 - 3,900 cells/uL [facility] # Monos 343 200 - 950 cells/uL [facility] # Eos 203 15 - 500 cells/uL [facility] # Baso 11 0 - 200 cells/uL [facility] % Neutros 54.8 % [facility] % Lymphs 24.6 % [facility] % Monos 12.7 % [facility] % Eos 7.5 % [facility] % Baso 0.4 % [facility] Comment(s) [facility] Comment: Review of peripheral smear confirms automated results. Specimen Blood Narrative Performed At FASTING:YES [facility] FASTING: YES Resulting Agency Comment Performing Organization Information: Site ID: [facility] Name: [facility] Address: [address] [place] [phone] Director: Jj Carrasco Performing Organization Address [facility] Phone Number [facility] [address] [place] [address] [facility] Bilirubin, direct (03/10/2020 8:03 AM CDT)Only the most recent of5 results within the time period is included. Bilirubin, Total 3.8 (H) 0.2 - 1.2 mg/dL [facility] Bilirubin, Direct 1.2 (H) < OR = 0.2 mg/dL [facility] Bilirubin, Indirect 2.6 (H) 0.2 - 1.2 mg/dL (calc) [facility] Specimen Blood Narrative Performed At FASTING:YES [facility] FASTING: YES Resulting Agency Comment Performing Organization Information: Site ID: [facility] Name: [facility] Address: [address] [place] [phone] Director: Jj Carrasco Performing Organization Address [facility] Phone Number [facility] [address] [place] [address] [facility] Comprehensive metabolic panel (03/10/2020 8:03 AM CDT)Only the most recent of9 resultswithin the time period is included. Glucose 86 65 - 99 mg/dL [facility] Comment: Fasting reference interval BUN 23 7 - 25 mg/dL [facility] Creatinine 1.65 (H) 0.50 - 0.99 mg/dL [facility] Comment: For patients >49 years of age, the reference henriquez it for Creatinine is approximately 13% higher for p eople identified as -H[place]er. eGFR If NonAfricn Am 32 (L) > OR = 60 [facility] mL/min/1.73m2 eGFR If Africn Am 37 (L) > OR = 60 [facility] mL/min/1.73m2 BUN/Creatinine Ratio 14 6 - 22 (calc) [facility] Sodium 138 135 - 146 mmol/L [facility] Potassium, Serum 4.4 3.5 - 5.3 mmol/L [facility] Chloride 106 98 - 110 mmol/L [facility] Carbon Dioxide, Total 23 20 - 32 mmol/L [facility] Calcium, Serum 8.7 8.6 - 10.4 mg/dL [facility] Protein, Total, Serum 5.7 (L) 6.1 - 8.1 g/dL [facility] Albumin 3.1 (L) 3.6 - 5.1 g/dL [facility] GLOBULIN (QUEST) 2.6 1.9 - 3.7 g/dL [facility] (calc) Albumin Globulin Ratio 1.2 1.0 - 2.5 (calc) [facility] Bilirubin, Total 3.8 (H) 0.2 - 1.2 mg/dL [facility] Alkaline Phosphatase, S 81 37 - 153 U/L [facility] AST (SGOT) 30 10 - 35 U/L [facility] ALT (SGPT) 9 6 - 29 U/L [facility] Specimen Blood Narrative Performed At FASTING:YES [facility] FASTING: YES Resulting Agency Comment Performing Organization Information: Site ID: [id number] Name: [facility] Address: [address] [place] [phone] Director: Jj Carrasco Performing Organization Address City/State/[facility] Cent[facility]ode Phone Number [facility] [address] [place] [address] [facility] Miscellaneous lab test (02/15/2020 12:29 PM CDT)Only the most recent of2 results within the time period is included. Scan Result [facility] NON-INTERF ACED [facility] Specimen Blood Narrative Performed At This result has an attachment that is no t available. Performing Organization Address City/State/Zipcode Phone Number [facility] NON[facility]INTERFACED [facility] [address] [place], [place] CBC with platelet count + automated diff (02/15/2020 12:29 PM CDT)Only the most recent of15 resultswithin the time period is included. WBC 2.5 (L) 3.5 - 10.5 K/L [facility] RBC 2.31 (L) 3.93 - 5.22 M/L [facility] Hemoglobin 8.8 (L) 11.2 - 15.7 GM/DL [facility] Hematocrit 28.0 (L) 34.1 - 44.9 % [facility] MCV 121.2 (H) 79.4 - 94.[address] [facility] MCH 38.1 (H) 25.6 - 32.[address] [facility] MCHC 31.4 (L) 32.2 - 35.5 GM/DL [facility] RDW 20.9 (H) 11.7 - 14.4 % [facility] Platelets 48 (L) 150 - 450 K/CU MM [facility] MPV 10.0 9.4 - 12.3 fL [facility] nRBC 0 0 - 0 /[address] [facility] % Neutros 62 % [facility] % Lymphs 24 % [facility] % Monos 10 % [facility] % Eos 4 % [facility] % Baso 1 % [facility] # Neutros 1.56 1.56 - 6.13 K/L [facility] # Lymphs 0.60 (L) 1.18 - 3.74 K/L [facility] # Monos 0.24 0.24 - 0.36 K/L [facility] # Eos 0.10 0.04 - 0.36 K/L [facility] # Baso 0.02 0.01 - 0.08 K/L [facility] Immature 0 0 - 1 % [facility] Granulocytes-Relative MEDICAL CE NTER Specimen Blood Performing Organization Address City/State/Zipcode Phone Number [facility] [address] [place] [address] CENTER Magnesium (02/15/2020 12:29 PM CDT)Only the most recent of13 resultswithin the time period is included. Magnesium 1.8 1.6 - 2.6 mg/dL [facility] CENTER Specimen Blood Narrative Performed At Roof Bolter Operator ID - LM [facility] Performing Organization Address City/State/Zipcode Phone Number [facility] [address] [place] [address] CENTER PLATELET ESTIMATION (02/08/2020 10:23 AM CDT) Platelet Estimate DECREASED (A) ADEQUATE [facility] Specimen Narrative Performed At FASTING:YES [facility] FASTING: YES Resulting Agency Comment Performing Organization Information: Site ID: [id number] Name: [facility] Address: [address] [place] [phone] Director: Jj Carrasco Performing Organization Address City/State/Zipcode Phone Number [facility] [address] [place] [address] [facility] RHYTHM STRIP - SCAN (01/27/2020 10:00 [...] perfo rmance characteristics have been determined by [facility] [facility] [employer]. It has not been cleared or approved by FDA. This assay has been validated pursuant to the CLIA regulations and is used for clinical purposes. Normetanephrine 213 (H) < OR = 148 pg/mL [facility] Comment: INCORPORATED This test was developed and its analytical perfo rmance characteristics have been determined by [facility] [employer] [facility] [place]. It has not been cleared or approved [...] 2008. For additional information, please refer to http://education.ACTV8me/faq/MetFra ctFree (This link is being provided for informational/e ducational purposes only.) This test was developed and its analytical perfo rmance characteristics have been determined by [facility]. It has not been cleared or approved by FDA. This assay has been validated pursuant to the CLIA regulations and is used for clinical purposes. Specimen Blood Narrative Performed At Performing Lab [facility] [address] [address] [place] [address] Mark Encarnacion MD, PhD, AMINA Performing Organization Address City/[facility]/Zipcode Phone Number [place], [place] [address] [facility] Calcium, Ionized (01/26/2020 3:50 AM CDT)Only the most recent of7 resultswithin the time period is included. Calcium, Ion 1.11 (L) 1.12 - 1.27 mmol/L [facility] pH, Blood 7.41 [facility] Specimen Blood Performing Organization Address City/[facility]/Zipcode Phone Number [facility] [address] [place] [address] CENTER Phosphorus (01/26/2020 3:50 AM CDT)Only the most recent of7 resultswithin the time period is included. Phosphorus 3.2 2.3 - 4.7 mg/dL [facility] Specimen Blood Narrative Performed At Roof Bolter Operator ID - BS [facility] Performing Organization Address City/[facility] Centercode Phone Number [address] [address] [place] Hepatic function panel (01/26/2020 3:50 AM CDT)Only the most recent of13 resultswithin the time period is included. Protein, Total 5.7 (L) 6.0 - 8.3 gm/dL [facility] Albumin 3.4 (L) 3.5 - 5.0 g/dL [facility] Total Bilirubin 6.9 (H) 0.2 - 1.2 mg/dL [facility] Bilirubin, Direct 2.2 (H) 0.1 - 0.5 mg/dL [facility] Alkaline Phosphatase 58 40 - 150 U/L [facility] AST 36 (H) 5 - 34 U/L [facility] ALT 13 6 - 55 U/L [facility] Specimen Blood Narrative Performed At Roof Bolter Operator ID - BS [facility] Specimen moderately icteric Performing Organization Address City/[facility]/Zipcode Phone Number [address] [address] [place] Manual Differential (01/25/2020 3:47 AM CDT)Only the most recent of7 results within the time period is included. % Neutros 66 % [facility] % Lymphs 24 % [facility] % Monos 7 % [facility] % Eos 2 % [facility] % Metamyelo 1 (H) 0 - 0 % [facility] # Neutros 0.92 (L) 1.56 - 6.13 K/ul [facility] # Lymphs 0.34 (L) 1.18 - 3.74 K/ul [facility] # Monos 0.10 (L) 0.24 - 0.36 K/uL [facility] # Eos 0.03 (L) 0.04 - 0.36 K/uL [facility] # Metamyelo 0.01 (H) 0.00 - 0.00 K/uL [facility] Total Counted [address] [facility] Smudge Cells Present [facility] Giant Platelet Present [facility] Anisocytosis 2+ moderate [facility] Macrocytes 2+ moderate [facility] Poikilocytes [address]+ [address] [facility] Freddie Cells 2+ moderate [facility] Artifact Present [facility] Platelet Conc Decreased [facility] Specimen Blood Narrative Performed At Roof Bolter Operator ID - [id number] [facility] Roof Bolter Operator ID - Maria Del Carmen Silvio User comments: Slide comments: Performing Organization Address City/State/Zipcode Phone Number [facility] [address] [place] [address] CENTER Basic Metabolic Panel (01/25/2020 3:47 AM CDT)Only the most recent of10 results within the time period is included. Sodium 140 136 - 145 meq/L [facility] Potassium 3.4 (L) 3.5 - 5.1 meq/L [facility] Chloride 105 98 - 107 meq/L [facility] CO2 25 22 - 29 meq/L [facility] BUN 31 (H) 7 - 21 mg/dL [facility] Creatinine 2.35 (H) 0.57 - 1.25 mg/dL [facility] Glucose 108 (H) 70 - 105 mg/dL [facility] Calcium 8.7 8.4 - 10.2 mg/dL [facility] EGFR 21Comment: ESTIMATED GFR IS mL/min/1.73 sq m [facility] NOT ACCURATE CREATININE [facility] CLEARANCE IN PREDICTING GLOMERULAR FILTRATION RATE. ESTIMATED GFR IS NOT APPLICABLE FOR DIALYSIS PATIENTS. Specimen Blood Narrative Performed At Roof Bolter Operator ID - PIAYA L [facility] Specimen moderately icteric Performing Organization Address City/State/Zipcode Phone Number [facility] [address] [place] [address] CENTER TRANSFUSION SERVICE REPORT - [...] AM CDT) Narrative Performed At Epifanio Giles, JUVENAL, PRESS OPERATOR [employer] 2019 10:52 AM [facility] PFT CHARTING REPORT Infection Control/Hand Hygiene procedure s followed throughout the encounter with patient: Yes Patient Identification Method: Patient n celia verified on armband, and Medical record on armband, Is the order complete?: Yes Account ID#: [id number] Patient Name: Cici Calderon Birthdate: 1955 Age: [...] CDT) Narrative Performed At Epifanio Giles RRT, [facility] 2019 10:52 AM [facility] PFT CHARTING REPORT Infection Control/Hand Hygiene procedure s followed throughout the encounter with patient: Yes Patient Identification Method: Patient n celia verified on armband, and Medical record on armband, Is the order complete?: Yes Account ID#: [id number] Patient Name: Cici Calderon Birthdate: 1955 Age: [...] CDT) Narrative Performed At Epifanio Giles RRT, PRESS OPERATOR [employer] 2019 10:52 AM [facility] PFT CHARTING REPORT Infection Control/Hand Hygiene procedure s followed throughout the encounter with patient: Yes Patient Identification Method: Patient n celia verified on armband, and Medical record on armband, Is the order complete?: Yes Account ID#: [id number] Patient Name: Cici Calderon Birthdate: 1955 Age: [...] CDT) Narrative Performed At Janina Meehan RRT, RCP 20192:39 PM [facility] PFT CHARTING REPORT Infection Control/Hand Hygiene procedure s followed throughout the encounter with patient: Yes Patient Identification Method: Patient n celia verified on armband, and Medical record on armband, Is the order complete?: Account ID#: [id number] Patient Name: Cici Calderon Birthdate: 1955 Age: [...] ABO A Pos SAFETRACE TX UNIT NUMBER [id number] SAFETRACE TX Status TX_TIMEINCHART SAFETRACE TX Blood Bank Product RED BLOOD CELLS SAFETRACE [place] PRODUCT CODE [id number] SAFETRACE [place] Specimen Other Performing Organization Address [facility] Phone Number SAFETRACE [place] B-type Natriuretic Factor (BNP) (01/23/2020 4:32 AM CDT)Only the most recent of 2 resultswithin the time period is included. BNP 2,179 (H) 0 - 100 pg/mL [facility] [facility] Specimen Blood Narrative Performed At Roof Bolter Operator ID - PIDORIAN L [facility] Performing Organization Address [facility] Phone Number [facility] [address] [place] [address] CENTER Prepare Leuko-Red PLT (01/22/2020 11:54 PM CDT)Only the most recent of2 results within the time period is included. Unit ABO A Pos SAFETRACE TX UNIT NUMBER [id number] SAFETRACE TX Status WORK IN PROGRESS SAFETRACE TX Blood Bank Product PLATELETS SAFETRACE TX PRODUCT CODE [id number] SAFETRACE TX Unit ABO O Pos SAFETRACE TX UNIT NUMBER [id number] SAFETRACE TX Status TX_TIMEINCHART SAFETRACE TX Blood Bank Product PLATELETS SAFETRACE TX PRODUCT CODE [id number] SAFETRACE TX Specimen Blood Performing Organization Address [facility] Phone Number SAFETRACE TX Transfuse Leuko-Red RBC (01/22/2020 2:30 PM CDT)Only the most recent of4 resultswithin the time period is included.Cortisol (01/22/2020 8:23 AM CDT)Only the most recent of2 resultswithin the time period is included. Cortisol, Total 1.6 (L) 3.7 - 19.4 ug/dL [facility] Specimen Blood Narrative Performed At Roof Bolter Operator ID - PIDORIAN L [facility] Performing Organization Address [facility] Cancer Centercode Phone Number [address] [address] CENTER ABORH, manual (01/22/2020 4:34 AM CDT) ABO Grouping A [facility] Rh Factor POS [facility] Specimen Blood Performing Organization Address [facility]/Unm Cancer Centercode Phone Number [address] [address] Direct AHG (RAMIREZ)/Direct Jewel (01/22/2020 4:34 AM CDT) Direct AHG-IGG NEGATIVE [facility] Direct AHG-C3B, C3D NEGAT[facility]IE [facility] Specimen Blood Performing Organization Address [facility]/Un[facility] Cancer Centercode Phone Number [address] [address] Body fluid culture + gram stain (01/21/2020 4:54 PM CDT) Result No growth [facility] Gram Stain Result <1+ White blood cells seen [facility] Gram Stain Result No organisms seen [facility] Specimen Body Fluid Performing Organization Address [facility]/Unm Cancer Centercode Phone Number [address] [address] CENTER Body fluid cell count with differential (01/21/2020 4:54 PM CDT) Appearance Hazy (A) Clear [facility] Color Cele (A) Colorless, Straw [facility] RBCs 4,000 (H) <=1 /cu mm [facility] Adjusted WBC Count 86 (H) <=5 /cu mm [facility] Lining Cells 1 <=1 /cu mm [facility] % Segs 7 % [facility] % Lymphs 83 % [facility] % Monos 10 % [facility] % Eos 0 % [facility] % Baso 0 % [facility] Container Body Fluid Sterile Vial [facility] Specimen Body Fluid Performing Organization Address City/State/Zipcode Phone Number [facility] [address] [place] [address] [facility] paracentesis (01/21/2020 4:40 PM CDT) Specimen Narrative Performed At FINAL REPORT [facility] Ultrasound guided paracentesis Clinical History:Ascites. Sedation: None. [employer] Repairer: Christine Ward PA-C Supervising Physician: Natan Chisholm MD Golf Teacher:None. Estimated Blood Loss: < 1 mL. Specimen: [...] anesthesia was achieved with lidocaine, a 5 Greenlandic one-step catheter was advanced into the peritoneal cavity under ultrasound guidance. After completion of drainage, the cathet er was removed. There was no evidence of complication. Impression: Successful ultrasound guided paracentesi s. Signed: Natan Chisholm MD Report Verified Date/Time:01/24/2020 09:43:05 Reading Location: [facility] [id number] [facility] Reading Room Procedure Note Interface, External Ris In - 01/24/2020 9:45 AM CDT FINAL REPORT Ultrasound guided paracentesis Clinical History: Ascites. Sedation: None. [employer] Repairer: Christine Ward PA-C Supervising Physician: Natan Chisholm MD Golf Teacher: None. Estimated Blood Loss: < 1 mL. [...] anesthesia was achieved with lidocaine, a 5 Greenlandic one-step catheter was advanced into the peritoneal cavity under ultrasound guidance. After completion of drainage, the cathet er was removed. There was no evidence of complication. Impression: Successful ultrasound guided paracentesi s. Signed: Natan Chisholm MD Report Verified Date/Time: 01/24/2020 0 9:43:05 Reading Location: [facility] [id number] [facility] Reading Room Performing Organization Address City/State/Zipcode Phone Number RIS Peripheral Blood Smear - Hold only (01/21/2020 9:31 AM CDT) Peripheral Smear Save saved [facility] Specimen Blood Performing Organization Address City/State/Zipcode Phone Number [facility] [address] [place] [address] CENTER Reticulocyte count (01/21/2020 9:31 AM CDT)Only the most recent of2 results within the time period is included. % Retic 5.3 (H) 0.5 - 1.7 % [facility] Specimen Blood Narrative Performed At Roof Bolter Operator ID - [id number] [facility] Performing Organization Address City/State/Zipcode Phone Number [facility] [address] [place] [address] CENTER XR chest 1 view portable / bedside (01/21/2020 9:10 AM CDT)Only the most recent of2 resultswithin the time period is included. Specimen Narrative Performed At FINAL REPORT [employer] INDICATION: Edema COMPARISON: January 20, 2020 TECHNIQUE: [...] MD Report Verified Date/Time:01/21/2020 10:03:32 Reading Location: [employer] Reading Room Procedure Note Interface, External [...] Verified Date/Time: 01/21/2020 1 0:03:32 Reading Location: [employer] Reading Room Performing Organization Address City/State/Zipcode Phone Number RIS Metanephrines, 24 hour urine (01/20/2020 10:51 PM CDT) TOTAL VOLUME 1000 mL [facility] Metanephrine 205 90 - 315 [facility] Comment: mcg/24 h INCORPORATED This test was developed and its analytical perfo rmance characteristics have been determined by [facility]. It has not been cleared or approved by FDA. This assay has been validated pursuant to the CLIA regulations and is used for clinical purposes. Normetanephrine [phone] 981 [facility] Comment: mcg/24 h INCORPORATED This test was developed and its analytical perfo rmance characteristics have been determined by [facility]. It has not been cleared or approved [...] perfo rmance characteristics have been determined by [employer] [facility]. It has not been cleared or approved by FDA. This assay has been validated pursuant to the CLIA regulations and is used for clinical purposes. Specimen Urine Narrative Performed At Performing Lab [facility]Z [facility] t[facility] [address] [place] [address] Mark Encarnacion MD, PhD, AMINA Performing Organization Address City/State/Zipcode Phone Number [facility] [place] [address] [facility] Catecholamines, Fractionated, 24hr urine (01/20/2020 10:51 [...] perfo rmance characteristics have been determined by [facility] [facility]. It has not been cleared or approved by FDA. This assay has been validated pursuant to the CLIA regulations and is used for clinical purposes. Norepinephrine 9 (L) 15 - 100 mcg/24 [facility] Comment: h INCORPORATED This test was developed and its analytical perfo rmance characteristics have been determined by [employer] [facility]. It has not been cleared or approved by FDA. This assay has been validated pursuant to the CLIA regulations and is used for clinical purposes. Calculated Total E+Ne 9 (L) 26 - 121 mcg/24 [facility] Comment: h INCORPORATED This test was developed and its analytical perfo rmance characteristics have been determined by [employer] [facility]. It has not been cleared or approved [...] perfo rmance characteristics have been determined by [employer] [facility]. It has not been cleared or approved by FDA. This assay has been validated pursuant to the CLIA regulations and is used for clinical purposes. Creatinine,24 Hr Urin 0.88 0.50 - 2.15 [facility] g/24 h INCORPORATED Specimen Urine Narrative Performed At Performing Lab [facility] EZ [facility] t[facility] [address] [place] [address] I Shashank ADRIAN, PhD, AMINA Performing Organization Address [facility]/Un[facility] Cancer Centercode Phone Number [facility] [place] [address] INCORPORATED [address] [facility] [employer] Type and screen, automated (01/20/2020 8:39 PM CDT)Only the most recent of2 resultswithin the time period is included. ABO/RH AUTOMATED (BEAKER) A POSITIVE [facility] Ab Scrn NEGATIVE [facility] Specimen Blood Performing Organization Address City/[facility]/Zipcode Phone Number [facility] [address] [place] [address] MR abdomen without IV contrast (01/20/2020 5:54 PM CDT) Specimen Narrative Performed At FINAL REPORT [facility] TECHNIQUE: MRI of the abdomen WITHOUT in [...] MD Report Verified Date/Time:01/21/2020 07:51:30 Reading Location: [facility] Reading Room - [place] [address] Procedure Note Interface, External Ris In [...] Verified Date/Time: 01/21/2020 0 7:51:30 Reading Location: [facility] Reading Room - [facility] F1 1129 Performing Organization Address City/State/Zipcode Phone Number GE RIS Urinalysis w/Microscopic + Reflex to Culture (01/19/2020 11:19 PM CDT) Color, UA Yellow [facility] Clarity, UA Hazy [facility] Specific [place], UA 1.017 1.001 - 1.035 [facility] pH, UA 5.5 5.0 - 8.0 [facility] Protein, UA 20 mg/dL (A) Negative [facility] Glucose, UA Negative Negative [facility] Ketones, UA Negative Negative [facility] Bilirubin, UA Negative Negative [facility] Blood, UA Small (A) Negative [facility] Nitrite, UA Negative Negative [facility] Leukocytes, UA Trace (A) Negative [facility] Urobilinogen, UA 0.2 0.2 - 1.0 mg/dL [facility] RBC, UA 1 /HPF [facility] WBC, UA 3 /HPF [facility] Bacteria, UA Rare [facility] Squam Epithel, UA 3 /HPF [facility] Hyaline Casts, UA 3 /LPF [facility] Specimen Source [facility] Specimen Urine Performing Organization Address [facility] Cancer Centercode Phone Number [address] [address] [place] Sodium, random urine (01/19/2020 11:19 PM CDT)Only the most recent of3 results within the time period is included. Sodium Urine <20 meq/L [facility] Specimen Urine Narrative Performed At Reference Range: No Normals [facility] Roof Bolter Operator ID - PIAYA L Performing Organization Address [facility] Cancer Centercode Phone Number [address] [address] [place] Urinalysis w/Microscopic (01/19/2020 11:19 PM CDT)Only the most recent of2 resultswithin the time period is included. Color, UA Yellow [facility] Clarity, UA Hazy [facility] Specific [place], UA 1.017 1.001 - 1.035 [facility] pH, UA 5.5 5.0 - 8.0 [facility] Protein, UA 20 mg/dL (A) Negative [facility] Glucose, UA Negative Negative [facility] Ketones, UA Negative Negative [facility] Bilirubin, UA Negative Negative [facility] Blood, UA Small (A) Negative [facility] Nitrite, UA Negative Negative [facility] Leukocytes, UA Trace (A) Negative [facility] Urobilinogen, UA 0.2 0.2 - 1.0 mg/dL [facility] RBC, UA 1 /HPF [facility] WBC, UA 3 /HPF [facility] Bacteria, UA Rare [facility] Squam Epithel, UA 3 /HPF [facility] Hyaline Casts, UA 3 /LPF [facility] Specimen Source [facility] Specimen Urine Narrative Performed At Roof Bolter Operator ID - [auto] [facility] Roof Bolter Operator ID - tech Performing Organization Address City/State/Zipcode Phone Number [facility] [address] [place] [address] CENTER Blood Culture - Routine (Right Venipuncture) (01/19/2020 9:45 PM CDT)Only the most recent of4 resultswithin the time period is included. Result No growth in 5 days [facility] Specimen Blood Performing Organization Address [facility] Cancer Centercode Phone Number [address] [address] [place] [id number] PHENOTYP (01/19/2020 9:43 PM CDT) Specimen Blood Narrative Performed At This result has an attachment that is no t available. Performing Organization Address [facility] Cancer Centercode Phone Number [facility] [address] [facility] o, [place] Blood gas, arterial (01/19/2020 3:44 PM CDT) pH, Arterial 7.42 7.35 - 7.45 [facility] pCO2, Arterial 36 35 - 45 mmHg [facility] pO2, Arterial 78 (L) 80 - 90 mmHg [facility] O2 Sat, Arterial 96.2 96.0 - 97.0 % [facility] HCO3, Arterial 23 21 - 29 mmol/L [facility] Base Excess, Arterial -1.9 -2.0 - 3.0 mmol/L [facility] Patient Temperature 36.1 C [facility] FIO2 28.0 % [facility] Specimen Blood, Arterial Performing Organization Address [facility] Cancer Centercode Phone Number [address] [address] [place] Cryptococcal antigen (01/19/2020 3:04 PM CDT) Cryptococcal Antigen, Serum Negative Negative, Interferen ce [facility] Specimen Blood Performing Organization Address [facility]/Zipcode Phone Number [address] [address] CENTER Rubeola antibody IgG (01/19/2020 [...] patient. For additional information, please refer to http://education.[employer]/faq/ULV370 (This link is being provided for informational/ educational purposes only.) Specimen Blood Narrative Performed At Performing Lab [facility] *QDID [employer] [facility] [id number] [place] [id number] Sudhakar Hargrove MD Performing Organization Address [facility] Cancer Centercode Phone Number [place] [address] [address] [place] [address] Rubella antibody, IgG (01/19/2020 3:04 PM CDT) Rubella IgG Quant 127.0 (H) <8.0 IU/mL [facility] Specimen Blood Narrative Performed At Rubella IgG Result Interpretation: [facility] </= 7.0 IU/mL Negative - Presumed non-immune 8.0 - 9.9 IU/mL Equivocal >= 10.0 IU/mL Positive - Presumed immune Performing Organization Address [facility] Cancer Centercode Phone Number [facility] [address] [place] [address] CENTER Varicella zoster antibody, IgG (01/19/2020 3:04 PM CDT) Varicella IgG 3.6 [facility] Specimen Blood Narrative Performed At VARICELLA ZOSTER RESULT INTERPRETATIONS: [facility] <=0.8 AlNonreactive:Presumed non-immune to VZV 0.9-1.0 AlEquiv ocal >=1.1 AlReactive:Presumed immune to VZV Performing Organization Address City/[facility]/Zipcode Phone Number [facility] [address] [place] [address] CENTER Mumps antibody, IgG (01/19/2020 [...] Specimen Blood Narrative Performed At Performing Lab [facility] [employer] *QDID [employer] [facility] [address] [place] [phone] H Jorje Hargrove MD Performing Organization Address City/State/Zipcode Phone Number [facility] [place], [place] [address] [address] [place] [address] US breast bilateral (01/19/2020 9:10 AM CDT) Specimen Narrative Performed At FINAL REPORT GE RIS COMPLETE ULTRASOUND OF BOTH BREASTS AND [...] MD Report Verified Date/Time:01/19/2020 09:52:28 Reading Location: [address] Mammo Re ading Room Procedure Note [...] Verified Date/Time: 01/19/2020 0 9:52:28 Reading Location: [address] Mammo Re ading Room Performing Organization Address [facility] Phone Number GE RIS Aldosterone (01/19/2020 4:11 AM CDT) Aldosterone 22 ng/dL [employer] Comment: Adult Reference Ranges for Aldosterone: Upright 8:00-10:00 am< or = 28 ng/d L Upright 4:00-6:00 pm < or = 21 ng/d L Supine8:00-10:00 am3-16 ng/dL This test was developed and its analytical perfo rmance characteristics have been determined by [facility]. It has not been cleared or approved by FDA. This assay has been validated pursuant to the CLIA regulations and is used for clinical purposes. Specimen Blood Narrative Performed At Performing Lab [facility] [address] [address] [place] [address] Mark Encarnacion MD, PhD, AMINA Performing Organization Address [facility] Phone Number [facility] [place] [address] [address] [facility] Renin, plasma (01/19/2020 4:11 AM CDT) PRA,LC/MS/MS 1.51 0.25 - 5.82 [facility] Comment: ng/mL/h INCORPORATED This test was developed and its analytical perfo rmance characteristics have been determined by [employer] [facility]. It has not been cleared or approved by FDA. This assay has been validated pursuant to the CLIA regulations and is used for clinical purposes. Specimen Blood Narrative Performed At Performing Lab [employer] Inst[facility] tute [address] [facility] [address] Mark Encarnacion MD, PhD, AMINA Performing Organization Address City/State/Zipcode Phone Number [facility] [place], [place], [place] [address] [address] [facility] CT abdomen without IV contrast (01/19/2020 12:40 AM CDT) Specimen Narrative Performed At FINAL REPORT [facility] TECHNIQUE: CT of the abdomen WITHOUT int [...] MD Report Verified Date/Time:01/19/2020 08:09:04 Reading Location: [facility] Reading Room - [place] [address] Procedure Note Interface, External Ris In [...] Verified Date/Time: 01/19/2020 0 8:09:04 Reading Location: [facility] [employer] Reading Room - [place] [address] Performing Organization Address City/State/Zipcode Phone Number [facility] US renal complete (01/19/2020 12:20 AM CDT) Specimen Narrative Performed At FINAL REPORT [facility] Ultrasound of the Kidneys Clinical History:Re-examine L [...] 45 (H) 0 - 14 mg/dL [facility] Specimen Urine - Urine, Sterile Collection Narrative Performed At Roof Bolter Operator ID - EDWIN B [facility] Performing Organization Address City/[facility]/Zipcode Phone Number [address] [address] CENTER Creatinine, random urine (01/18/2020 8:49 PM CDT)Only the most recent of2 resultswithin the time period is included. Creatinine, Ur 181.3 mg/dL [facility] Specimen Urine - Urine, Sterile Collection Narrative Performed At Reference Range: No Normals [facility] Roof Bolter Operator ID - EDWIN B Performing Organization Address [facility]/Zipcode Phone Number [address] [address] [place] Eosinophil smear (01/18/2020 8:49 PM CDT) Eosinophil Smear Rare EOS =less than 5% No EOS seen [facility] WBCs seen are EOS (A) MEDICAL CE NTER Specimen Urine - Urine, Sterile Collection Performing Organization Address City/[facility] Cancer Centercode Phone Number [address] [address] [place] Myocardial Perfusion Pet/CT (Rest & Stress) (01/18/2020 9:20 AM CDT) Specimen Narrative Performed At FINAL REPORT [facility] PROCEDURE: MYOCARDIAL PERFUSION PET IMAG ING (Rest/Stress) CPT CODE: [id number] INDICATION: Evaluation for liver transpl ant CARDIOVASCULAR [...] MD Report Verified Date/Time:01/18/2020 12:45:40 Reading Location: [address] Med Reading Room Procedure Note Interface, External Ris In - 01/18/2020 12:47 PM CDT FINAL REPORT PROCEDURE: MYOCARDIAL PERFUSION PET IMAG ING (Rest/Stress) CPT CODE: [id number] INDICATION: Evaluation for liver transpl ant CARDIOVASCULAR [...] Verified Date/Time: 01/18/2020 1 2:45:40 Reading Location: [address] Reading Room Performing Organization Address City/State/Zipcode Phone [...] 452 ms QTC Calculation(Bazett) 458 ms P [place] 59 degrees R [place] 32 degrees T [place] 56 degrees Normal sinus rhythm Low voltage [...] 452 ms QTC Calculation(Bazett) 458 ms P [place] 59 degrees R [place] 32 degrees T [place] 56 degrees Normal sinus rhythm Low voltage QRS Nonspecific ST abnormality 17 JAN 2020 11:05 Nonspecific T wave abnormality Nonspecif ic T wave abnormality, improved in QT has shortened Confirmed by MD FARHAT, JESSIE ([id number]) on 01/18/2020 2:19:38 PM Performing Organization Address City/State/[facility] Cancer Centercode Phone Number GE MUSE T Spot [...] is no t available. Performing Organization Address City/State/Unm Cancer Centercode Phone Number [facility] [address] [place] [address] [address] REPORT OF PROCEDURE - ENDOSCOPY URL (01/17/2020 9:11 AM CDT) Narrative Performed At This result has an attachment that is no t available. REPORT OF PROCEDURE - ENDOSCOPY URL (01/17/2020 8:39 AM CDT) Narrative Performed At This result has an attachment that is no t available. Tissue Exam (01/17/2020 8:15 AM CDT) Case Report Surgical Pathology Report Case: [id number] [facility] [facility] Authorizing Provider:Sylvie Larry MDCollected: 01/17/2020 08:15 AM [facility]ENTER Ordering Location: [address] Received:01/17/2020 01:50 PM Service Pathologist: Humaira Mendez MD Specimen:Duodenum, biopsy ADDENDUM THIS ADUODENUMIS ISSUED TO R EPORT THE FINDINGS IN THE DEEPER LEVELS OF THE BIOPSY AND GIVE THE FINAL DIAGNOSIS: [facility] DUODENUM, ENDOSCOPIC BIOPSY: - ECTATIC VESSELS IN THE LAMINA PROPRIA, SUGGE STIVE OF PORTAL DUODENOPATHY - NO FEATURES OF CELIAC DISEASE SEEN - NO GRANULOMAS, DYSPLASIA OR MALIGNANCY SEEN DIAGNOSIS DUODENUM, ENDOSCOPIC BIOPSY: [facility] - SUPERFICIAL FRAGMENTS OF SMALL BOWEL MUCOSA WITH GASTRIC FOVEOLAR METAPLASIA [facility] Signing Pathologist Direct Phone Line: [phone] CPT Code(s) 76624 [facility] CLINICAL HISTORY Procedure: upper endoscopy, biopsy and colonosc opy [facility] Pre and postop diagnosis: anemia MEDICAL CENTER SPECIMEN SOURCE A. Duodenum; biopsy [facility] GROSS DESCRIPTION A. The specimen is received [facility] in formalin labeled with [facility] CENTER the patient's name, accession number and "duodenum" and consists of one garduno-pink mucosal-covered pieces of tissue measuring 0.3 x 0.2 x 0.1 cm. The specimen is submitted entirely following filtration in a cassette A1. HS/pl MICROSCOPIC DESCRIPTION PERFORMED [facility] Specimen Tissue Performing Organization Address City/[facility]/Zipcode Phone Number [facility] [address] [place] [address] CENTER Lactate dehydrogenase (LDH) (01/16/2020 12:24 PM CDT) LDH 250 (H) 125 - 220 U/L [facility] Specimen Blood Narrative Performed At Roof Bolter Operator ID - TUAN Mera [facility] Performing Organization Address [facility]/Zipcode Phone Number [facility] [address] [place] [address] CENTER Vitamin B12 and Folate (01/16/2020 11:25 AM CDT) Vitamin B12 1,107 (H) 213 - 816 pg/mL [facility] Folate 3.40 (L) >=7.00 ng/mL [facility] Specimen Blood Narrative Performed At Roof Bolter Operator ID - ESTHER [facility] Performing Organization Address City/[facility]/Zipcode Phone Number [address] [address] CENTER HIV-1 Antigen with HIV-1/2 Antibody (01/16/2020 11:25 AM CDT) HIV-1 Antigen with HIV 1&2 Nonreactive Nonreactive [facility] Specimen Blood Narrative Performed At Roof Bolter Operator ID - TUAN Mera [facility] Performing Organization Address City/[facility]/Zipcode Phone Number [address] [address] CENTER Haptoglobin (01/16/2020 11:25 AM CDT) Haptoglobin <8 (L) 14 - 258 mg/dL [facility] Specimen Blood Narrative Performed At Roof Bolter Operator ID - TUAN Mera [facility] Performing Organization Address City/[facility] Phone Number [address] [address] CENTER US abdominal with doppler (01/16/2020 6:30 AM CDT) Specimen Narrative Performed At FINAL REPORT [facility] ULTRASOUND ABDOMEN COMPLETE, ULTRASOUND DUPLEX DOPPLER HISTORY: [...] MD Report Verified Date/Time:01/16/2020 07:32:01 Reading Location: [facility] B1 C013T [facility] Reading Room Procedure Note Interface, External Ris [...] Verified Date/Time: 01/16/2020 0 7:32:01 Reading Location: [address] Reading Room Performing Organization Address City/[facility] Cancer Centercode Phone Number [facility] Drug screen, urine, transplant (01/15/2020 9:52 PM CDT) Specimen Urine Narrative Performed At This result has an attachment that is no t available. Performing Organization Address [facility]/Zipcode Phone Number [place] [phone] [place] [address] Blood typing, automated - - at seperate draw time from initial type and screen (01/15/2020 6:16 PMCDT) ABO/RH AUTOMATED (BEAKER) A POSITIVE [facility] Specimen Blood Performing Organization Address City/[facility]/Zipcode Phone Number [facility] [address] [place] [address] CT chest without IV contrast (01/15/2020 5:54 PM CDT) Specimen Narrative Performed At FINAL REPORT [facility] CT of the chest, without contrast Clinical [...] MD Report Verified Date/Time:01/15/2020 17:57:54 Reading Location: [facility] C013X [facility] Reading Room Procedure Note Interface, External Ris [...] Verified Date/Time: 01/15/2020 1 7:57:54 Reading Location: [facility] C013X Ortho Con sult Reading Room Performing Organization Address City/[facility]/Unm Cancer Centercode Phone Number GE RIS XR chest 2 [...] MD Report Verified Date/Time:01/15/2020 17:16:49 Reading Location: [facility] C013T [facility] Reading Room Procedure Note Interface, External Ris [...] Verified Date/Time: 01/15/2020 1 7:16:49 Reading Location: [facility] C013T [facility] Reading Room Performing Organization Address City/[facility]/Unm Cancer Centercode Phone Number GE RIS XR mandible min [...] MD Report Verified Date/Time:01/15/2020 17:22:12 Reading Location: [address] Reading Room Procedure Note Interface, External [...] Verified Date/Time: 01/15/2020 1 7:22:12 Reading Location: [address] Reading Room Performing Organization Address [facility]/Unm Cancer Centercode Phone Number RIS Mitochondria M2 Antibody (IgG) (01/15/2020 4:17 PM CDT) Mitochondria M2 Ab <20.0 See Note: U [facility] Comment: Reference Range: NEGATIVE:< OR = 20.0 EQUIVOCAL: 20.1-24.9 POSITIVE:> OR = 25.0 Specimen Blood Narrative Performed At Performing Lab [facility] [address] [address] [place] [address] Mark Encarnacion MD, PhD, AMINA Performing Organization Address City/[facility]/Unm Cancer Centercode Phone Number [facility] [place] [address] [facility] Iron, TIBC, % sat. (without ferritin) (01/15/2020 4:17 PM CDT) Iron 144.0 40.0 - 160.0 ug/dL [facility] TIBC 129 (L) 250 - 450 ug/dL [facility] Iron % Saturation 112 (H) 20 - 55 % [facility] Specimen Blood Narrative Performed At Roof Bolter Operator ID - DB [facility] Performing Organization Address City/[facility] Centercooh Phone Number [address] [address] CENTER Hepatitis C antibody (01/15/2020 4:17 PM CDT) Hepatitis C Ab Nonreactive Nonreactive [facility] Specimen Blood Narrative Performed At Roof Bolter Operator ID - DB [facility] CENTER Performing Organization Address [facility] Centercooh Phone Number [address] [address] CENTER Cytomegalovirus antibody, IgM (01/15/2020 4:17 PM CDT) CMV IGM Negative Negative, Equivocal [facility] Specimen Blood Narrative Performed At CMV IgM Result Interpretation: [facility] </= 0.8 Al Negative 0.9-1.0 Al Equivocal >/= 1.1 Al Positive Performing Organization Address [facility] Centercooh Phone Number [address] [address] CENTER Actin (Smooth Muscle) Antibody, [...] Specimen Blood Narrative Performed At Performing Lab [facility] LTN [employer]i tute [address] [place] [address] Mark Encarnacion MD, PhD, AMINA Performing Organization Address City/[facility]/Unm Cancer Centercode Phone Number [facility] [place] [address] [facility] [id number] (01/15/2020 4:17 PM CDT) A-1 Antitrypsin 121.20 90.00 - 200.00 mg/dL [facility] Specimen Blood Narrative Performed At Roof Bolter Operator ID - DB [facility] Performing Organization Address [facility] Centercooh Phone Number [address] [address] CENTER Hepatitis A antibody, IgM (01/15/2020 4:17 PM CDT) Hep A IgM Nonreactive Nonreactive [facility] Specimen Blood Narrative Performed At Roof Bolter Operator ID - DB [facility] Performing Organization Address [facility] Phone Number [address] [address] CENTER Carbohydrate antigen 19-9 ([place] [...] Specimen Blood Narrative Performed At Performing Lab [facility] [employer] E[employer] tute [address] [place] [address] Mark Encarnacion MD, PhD, AMINA Performing Organization Address [facility]/Unm Cancer Centercode Phone Number [facility] [place] [address] [address] [facility] Ceruloplasmin (01/15/2020 4:17 PM CDT) Ceruloplasmin 21 18 - 53 mg/dL [facility] Specimen Blood Narrative Performed At Performing Lab [facility] *BEATRIZ [facility], [address] [place] [phone] Jorje Jauregui MD, PhD Performing Organization Address City/[facility]/Zipcode Phone Number [place] [phone] [facility] Zinc (01/15/2020 4:17 PM CDT) Zinc 39 (L) 60 - 130 mcg/dL [facility] Comment: INC[facility]PORATED This test was developed and its analytical perfo rmance characteristics have been determined by [employer]. It has not been cleared or approved by the FDA. This assay has been validated pursuant to [facility] CLIA regulations and is used for clinical purposes. Specimen Blood Narrative Performed At Performing Lab [facility] *[facility] [facility], [address] [place] [phone] Jorje Jauregui MD, PhD Performing Organization Address [facility] Centercooh Phone Number [place], [place] [address] [address] [facility] Alpha fetoprotein (AFP), tumor marker (01/15/2020 4:17 PM CDT)Only the most recent of2 resultswithin the time period is included. Alpha-Fetoprotein <2.0 <10.0 ng/mL [facility] Specimen Blood Narrative Performed At Roof Bolter Operator ID - DB [facility] Performing Organization Address City/[facility]/Zipcode Phone Number [address] [address] CENTER Hepatitis B core antibody, IgM (01/15/2020 4:17 PM CDT) Hep B C IgM Nonreactive Nonreactive [facility] Specimen Blood Narrative Performed At Roof Bolter Operator ID - DB [facility] Performing Organization Address City/[facility]/Zipcode Phone Number [facility] [address] [place] [address] CENTER EBV-VCA antibody, IgM (01/15/2020 4:17 PM CDT) GABRIEL CHING VIRAL CAPSID Negative Negative, Equivocal [facility] ANTIGEN IGM [facility] CENTER Specimen Blood Narrative Performed At Gabriel Ching Viral Capsid Antigen IgM Result [facility] Interpretation: </= 0.8 Al Negative 0.9-1.0 Al Equivocal >/= 1.1 Al Positive Performing Organization Address City/[facility]m Cancer Centercode Phone Number [facility] [address] [place] [address] CENTER EBV-VCA antibody, IgG (01/15/2020 4:17 PM CDT) GABRIEL CHING VIRAL [employer] Positive (A) Negative, Equivocal [facility] Specimen Blood Narrative Performed At Gabriel Ching Viral Capsid Antigen IgG Result [facility] Interpretation: </= 0.8 Al Negative 0.9-1.0 Al Equivocal >/= 1.1 Al Positive Performing Organization Address [facility] Centercooh Phone Number [address] [address] CENTER Hepatitis B core antibody, total (01/15/2020 4:17 PM CDT) Hep B Core Total Ab Nonreactive Nonreactive [facility] Specimen Blood Narrative Performed At Roof Bolter Operator ID - [place] F [facility] Performing Organization Address City/[facility]/Unm Cancer Centercode Phone Number [address] [address] CENTER Vitamin D, 25-Hydroxy (01/15/2020 4:17 PM CDT) Vitamin D 25-Hydroxy 6.2 (L) 6.6 - 49.9 ng/mL [facility] Specimen Blood Narrative Performed At Effective 05/07/2017: Reference Range Ch von [facility] New: 6.6-49.9 ng/mL Previous: 13.0-47.8 ng/mL Recommended Vitamin D Target Range: 30.0-40.0 ng/mL Roof Bolter Operator ID - DB Performing Organization Address City/[facility]/Unm Cancer Centercode Phone Number [address] [address] CENTER RPR (01/15/2020 4:17 PM CDT) RPR Nonreactive Nonreactive [facility] Specimen Blood Performing Organization Address [facility] Centercooh Phone Number [address] [address] [place] Hepatitis B surface antibody (01/15/2020 4:17 PM CDT) Hep B S Ab 25.0 (H) <8.0 mIU/mL [facility] Specimen Blood Narrative Performed At Roof Bolter Operator ID - DB [facility] Performing Organization Address [facility] Phone Number [address] [address] [place] Hepatitis B surface antigen (01/15/2020 4:17 PM CDT) HBsAg Screen Nonreactive Nonreactive [facility] Specimen Blood Narrative Performed At Specimen is considered negative for HBsAg. [facility] Performing Organization Address [facility] Phone Number [address] [address] [place] Cytomegalovirus antibody, IgG (01/15/2020 4:17 PM CDT) CYTOMEGALOVIRUS, IGG Positive (A) Negative, Equivocal [facility] Specimen Blood Narrative Performed At CMV IgG Result Interpretation: [facility] </= 0.8 Al Negative 0.9-1.0 Al Equivocal >/=1.1 AlPositive Performing Organization Address [facility] Centerco[facility] Phone Number [address] [address] CENTER aPTT (01/15/2020 4:17 PM CDT) PTT 36.8 (H) 22.5 - 36.0 seconds [facility] Specimen Blood Performing Organization Address City/[facility]/Unm Cancer Centercode Phone Number [address] [address] [place] Fibrinogen (01/15/2020 4:17 PM CDT) Fibrinogen 114 (L) 225 - 434 mg/dl [facility] Specimen Blood Performing Organization Address [facility] Centerco[facility] Phone Number [address] [address] [place] Anti-Nuclear Antibody (REILLY) (01/15/2020 4:17 PM CDT) REILLY Negative Negative [facility] Specimen Blood Narrative Performed At Test performed by IFA method. [facility] Test performed by IFA method. Performing Organization Address [facility]/Unm Cancer Centercode Phone Number [address] [address] [place] T3 (01/15/2020 4:17 PM CDT) T3, Total 51 48 - 159 ng/dL [facility] Specimen Blood Narrative Performed At This result has an attachment that is no t available. Performing Organization Address [facility] Centercooh Phone Number [facility] [address] [place], [place] Transferrin (01/15/2020 4:17 PM CDT) Transferrin 102 (L) 174 - 382 mg/dL [facility] Specimen Blood Narrative Performed At Roof Bolter Operator ID - DB [facility] Specimen moderately icteric Performing Organization Address [facility]/Unm Cancer Centercode Phone Number [address] [address] [place] TSH (01/15/2020 4:17 PM CDT) TSH 5.549 (H) 0.350 - 4.940 uIU/mL [facility] Specimen Blood Narrative Performed At Roof Bolter Operator ID - DB [facility] Performing Organization Address City/State/Zipcode Phone Number [address] [address] CENTER T4 (01/15/2020 4:17 PM CDT) T4, Total 4.3 (L) 4.9 - 11.7 ug/dL [facility] Specimen Blood Narrative Performed At Roof Bolter Operator ID - NTP [facility] Performing Organization Address City/[facility]/Zipcode Phone Number [address] [address] CENTER Hemoglobin A1c (01/15/2020 4:17 PM CDT) Hemoglobin A1C <3.8 (L) 4.3 - 6.1 % [facility] Specimen Blood Performing Organization Address City/[facility] Phone Number [address] [address] CENTER Ferritin (01/15/2020 4:17 PM CDT) Ferritin 489.86 (H) 5.00 - 275.00 ng/mL [facility] Specimen Blood Narrative Performed At Roof Bolter Operator ID - NTP [facility] ICAL [place] Performing Organization Address City/State/Zipcode Phone Number [address] [address] CENTER Carcinoembryonic Antigen (CEA) (01/15/2020 4:17 PM CDT) CEA, SERUM 7.9 (H) 0.0 - 5.0 ng/mL [facility] Specimen Blood Narrative Performed At Roof Bolter Operator ID - DB [facility] Performing Organization Address City/[facility]/Zipcode Phone Number [facility] [address] [place] [address] CENTER Ethanol (01/15/2020 4:17 PM CDT) Ethanol Lvl <10 <=10 mg/dL [facility] Specimen Blood Narrative Performed At Roof Bolter Operator ID - DB [facility] Performing Organization Address City/State/Zipcode Phone Number [place] [phone] [place] [address] [place] 2D Echo W/Doppler(CW/PW/Color) (01/15/2020 2:45 PM CDT) Ejection Fraction [facility] ECHO HEAR TLAB [facility] Specimen Narrative Performed At Transthoracic Echocardiography Report (T TE) [facility] ECHO HEARTLAB [facility] Demographics Patient Name CICI CALDERON Date of Study 01/15/2020 ALYSE [id number] GenderFem shalom Visit Number [id number] RaceUnkn own [id number] m Number [id number] Number Date of Birth1955 Referring Physician Ren Hernandez MD Age64 year(s) Staff Writer Lisa Bautista [facility] InterpretingJoseolvin Arreguin MD Physician Procedure [...] Study 01/15/2020 ALYSE Gender Female Visit Number [id number] Race Unknown [place] [id number] Number Date of 1955 Referri Physician Ren Hernandez MD Age 64 year(s) Sonogra pher Lisa Melhem [facility] Interpr eting Jai Arreguin MD Physici [...] Gradient: 9.98 mmHg Mean Velocity: 0.95 m/s Hcaro n Gradient: 4.37 mmHg LVOT Diameter: 1.87 cm LVO T VTI: 32.91 cm LVOT Area: 2.75 cm^2 LVO T SV:90.34 ml LVOT CO: 7.05 l/min LVO T CI: 3.67 l/min/m^2 Performing Organization Address City/State/Zipcode Phone Number [facility]CHO [facility] Carotid doppler bilateral (01/15/2020 2:41 PM CDT) Ejection Fraction [facility] ECHO HEAR [facility] Specimen Impressions Performed At Right Impression [facility] ECHO HEARTLAB [facility] 1. The internal, common and external carotid [...] Performed At LAB - Carotid Duplex Study [facility] ECHO HEARTLAB [facility] Demographics Patient Shameka Tobias of Study 01/15/2020 ALYSE 64 Visit [id number] Female of 1955 Referring [facility] Room Number 1515 Physician Staff Writer Herbert maurice, T Physician Procedure Type of [...] Study 01/15/2020 ALYSE Age 64 Visit Number [id number] Gen margarita Female Accession Number [id number] Ramirez e of 1955 Referring [facility] Shady Todd Number 1515 Physician Staff Writer Herbert Jacobs [facility] Chelsea Resendez, [facility] Alvin foss MD Procedure Type of Study: [...] Measurements:ICAPSV/CCAPS V 0.96.ICAEDV/CCAEDV 1.52. Performing Organization Address City/[facility] Phone Number [facility] ECHO HEARTLAB [facility] Hepatitis panel, acute (01/15/2020 8:32 AM CDT) Hep A IgM Nonreactive Nonreactive [facility] Hep B C IgM Nonreactive Nonreactive [facility] Hepatitis C Ab Nonreactive Nonreactive [facility] HBsAg Screen Nonreactive Nonreactive [facility] Specimen Blood Narrative Performed At Roof Bolter Operator ID - NTP [facility] Performing Organization Address [facility] Phone Number [address] [address] CENTER Ammonia (01/15/2020 8:32 AM CDT) Ammonia 19 18 - 72 mol/L [facility] Specimen Blood Narrative Performed At Roof Bolter Operator ID - NTP [facility] Performing Organization Address [facility]/Un[facility] Cancer Centercode Phone Number [address] [address] CENTER Uric acid (01/15/2020 3:56 AM CDT) Uric Acid 15.7 (H) 2.6 - 7.2 mg/dL [facility] Specimen Blood Narrative Performed At Roof Bolter Operator ID - NTP [facility] Specimen moderately icteric Performing Organization Address City/[facility]/Unm Cancer Centercode Phone Number [address] [address] [place] Gamma Glutamyl Transferase (GGT) (01/15/2020 3:56 AM CDT) GGT 15 9 - 64 U/L [facility] Specimen Blood Narrative Performed At Roof Bolter Operator ID - NTP [facility] Specimen moderately icteric Performing Organization Address [facility] Phone Number [address] [address] [place] Lipid panel (01/15/2020 3:56 AM CDT) Triglycerides 86 mg/dL [facility] Cholesterol 101 mg/dL [facility] HDL 12 mg/dL [facility] LDL Calculated 72 mg/dL [facility] Specimen Blood Narrative Performed At Triglyceride Reference Range: [facility] Low Risk <150 [id number] High Risk 200-499 Very High Risk>=500 Cholesterol Reference Range: Low Risk <200 [id number] High Risk>240 HDL Cholesterol Reference Range: Low Risk >=60 High Risk <40 LDL Cholesterol Reference Range: Optimal<100 Near [id number] [id number] Zpyx258-312 Very High >=190 Roof Bolter Operator ID - NTP Specimen moderately icteric Performing Organization Address [facility]/Unm Cancer Centercode Phone Number [address] [address] [place] SARS-CoV2/RT-PCR (Asymptomatic ONLY) (01/14/2020 7:28 PM CDT) SARS-COV2/RT-PCR Not Detected Not Detected, Negative [facility] SARS-COV-2 PERFORMING LAB [facility] Specimen Other Narrative Performed At Negative results do not preclude SARS-CoV-2 [facility] infection and should not be used as [...] the Act. Fact Sheet for Healthcare Providers: https://www.Bid [facility]erd/Documents/Xpert%20Xpre ss%20SARS%20CoV-2/Fact%20Sheets/302-3802%20SAR S-COV-2%20HEALTHCARE%20PROVIDERS%20FACT%20SHEE T.pdf Fact Sheet for Healthcare Patients: https://www.[employer]/Documents/Xpert%20Xpre ss%20SARS%20CoV-2/Fact%20Sheets/302-3801%20SAR S-COV-2%20PATIENT%20FACT%20SHEET.pdf Performing Laboratory: [address] [place] [address] Performing Organization Address City/State/Zipcode Phone Number [address] [address] CENTER after 03/20/2019 Insurance Payer Benefit Plan / Subscriber ID Type Phone Address Group [employer] - MEDICARE A[employer] MEDICARE HMO xxxxxxxx [address] [place] [address] CDC REVIEW CDC REVIEW xxxxx[place] [address] [place] [address] Advance Directives For more information, please contact:[place] [phone] [place], [place] [phone] Code Status Date Activated Date Inactivated Comments Full Code 01/14/2020 8:09 PM 01/26/2020 8:41 PM This code status was determined by: Patient
--- OUTSIDE RECORDS SUMMARY | 2020-03-20 09:38 | XMS REPORT ---
[...] Status Dosage System Date Date Calcitriol ND 85899756107 0.5 MCG Orally Active 1 capsule Once a day Albuterol [facility] 17620868107 108 (90 Base) November 03, Active 1 puff as Sulfate HFA MCG/ACT 2019 needed Inhalation every 6 hrs Lactulose ND 06209187894 20 GM/30ML Active 15 ml Orally Once a day Cimetidine ND 19884523392 200 MG Orally Active 1 t ablet Once a day as needed Results No Known Results Summary Purpose eClinicalWorks Submission
--- OUTSIDE RECORDS SUMMARY | 2020-03-20 09:38 | XMS REPORT | Continuity of Care Document ---
:1955 Author Organization [facility] t Address [address] [place] [address] [address] [place] [address] Care Team Providers Name Role Phone Nahun Leonard MD Primary Care Physician Mayank ESPINOSA R Attending Clinician Unavailable Alfonso Attending Clinician Unavailable Alex Riley MD Attending [...] Clinician Zeinab Gooden Attending Clinician Vinicius ETIENNE Gottlieb Attending Clinician Doris ADRIAN Attending Clinician Aaliyah [...] MEDICARE MGD xxxxxxxx [facility] CAREAETNA MEDICARE [facility] POS Medical [phone] [facility] [id number] [address] [facility]CDC xxxxxxxx [facility] REVIEWxxxxxxxxPO [facility] [id number] Center Problems Condition Condition Condition Status Onset Resolution Last Treating Co mments Source Name Details Category Date Date Treatment Clinician Date Acute Acute Disease Active [facility] liver liver 6-19 [facility] - failure failure 00:00: Medical 00 Onward Elevated Elevated Disease Active [facility] t [...] Center miralax Screening Screening Disease Active 2015-07 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 ent Clinics Erythrom Adverse Active vomiting/jocy C [facility] Family History Family Member Diagnosis Comments Start Date Stop Date Source Natural brother Diabetes [facility] Natural brother Hypertension [facility] Natural brother Arthritis [facility] Natural brother COPD [facility] Natural father Diabetes [facility] Natural father Heart disease [facility] Natural mother Diabetes [facility] Natural mother Heart disease [facility] Natural sister Cancer [facility] Social History Social Habit Start Date Stop Date Quantity Comments Source Sex Assigned At [facility] Alcohol Comment 2016-07-01 2016-07-01 social last drink I [facility] [place] - 00:00:00 00:00:00 06/15/16 [facility] Smoking Status Start Date Stop Date Source Former smoker 2020-02-15 00:00:00 2020-02-15 00:00:00 [facility] Medications Ordered Filled Start Stop [...] 2 (two) times daily. ergocalcife 2020- Yes [id number] [id number] Take [address] rol [...] magnesium) daily. tablet lactulose 2020-0 Yes 20g Q.[id number] Take [address] (CHRONULAC) 01-25 [id number] mLs (20 g [facility] - 20 gram/30 00:00: 3D total) by Id dical mL solution 00 mouth 3 Cente r (three) times daily. midodrine 2019- No 2.5mg Q.[id number] Take [address] (PROAMATINE 01-25 [id number] tablet [facility] - ) 2.5 MG 00:00: [...] [facility] Sulfate HFA Sulfate HFA 4-09 [place] needed [facility] - 00:00: Memoria 00 l Outpati ent Clinics Cimetidine Cimetidine Yes Mitzy [address] [address] [place] as needed [facility] Calcitriol Calcitriol Yes Mitzy [address] [address] [place] [facility] Lactulose Lactulose Yes [place]zy [address] [address] [place] [facility] Xifaxan Xifaxan Yes [place] [address] [facility] [address] [place] [facility] Folic Acid Folic Acid Yes Mitzy [address] [address] [place] [facility] Spironolact Spironolact Yes [place] [address] one one [place] [facility] Vitamin D2 Vitamin D2 Yes Mitzy [address] [address] [place] [facility] MagOx 400 MagOx 400 Yes Mitzy [address] [place] with food [facility] Tramadol Tramadol Yes [place] [address] HCl HCl [place] as needed [facility] Midodrine Midodrine Yes [place] [address] HCl HCl [place] [facility] Pantoprazol Pantoprazol Yes Mitzy [address] e Sodium e Sodium [place] mixed with Lukes - apple Memoria juice or l applesauce [facility] Immunizations Ordered Filled Immunization Date Status Comments Sourc e Immunization Name Name Hepatitis A (adult) Hepatitis A (adult) 2020-02-[address] [facility] - 00:00:00 [place] Hepatitis B (adult) Hepatitis B (adult) 2020-02-[address] [facility] - 00:00:00 [place] Vital Signs Vital Name Observation Time Observation Value Comments Source Systolic blood 2020-02-15 10:30:00 131 mm[Hg] [facility] Diastolic blood 2020-02-15 10:30:00 78 mm[Hg] [facility] Heart rate 2020-02-15 10:30:00 98 /min [facility] Body temperature 2020-02-15 10:30:00 36.22 Shaneka [facility] Respiratory rate 2020-02-15 10:30:00 18 /min [facility] Body height 2020-02-15 10:30:00 162.6 cm [facility] Body weight Measured 2020-02-15 10:30:00 90.901 kg [facility] BMI 2020-02-15 10:30:00 34.40 kg/m2 [facility] Oxygen saturation in 2020-02-15 10:30:00 95 /min [facility] Arterial blood by Medical Ce nter Pulse oximetry Procedures Procedure Date / Time Performing Clinician Source Performed PROTHROMBIN TIME/INR 2020-03-10 08:03:00 Kristofer Cross [facility] COMPREHENSIVE METABOLIC 2020-03-10 08:03:[address] [facility] CBC W/PLT COUNT & AUTO 2020-03-10 08:03:00 Kristofer Cross [facility] BILIRUBIN, DIRECT 2020-03-10 08:03:00 Kristofer Cross [facility] MISCELLANEOUS LAB ORDER 2020-02-15 12:29:00 AmericaKristofer [facility] MAGNESIUM 2020-02-15 12:29:00 AmericaKristofer [facility] BILIRUBIN, DIRECT 2020-02-15 12:29:00 AmericaKristofer [facility] COMPREHENSIVE METABOLIC 2020-02-15 12:29:[address] [facility] PROTHROMBIN TIME/INR 2020-02-15 12:29:00 AmericaKristofer [facility] CBC W/PLT COUNT & AUTO 2020-02-15 12:29:00 AmericaKristofer [facility] PROTHROMBIN TIME/INR 2020-02-08 10:23:00 AmericaKristofer [facility] COMPREHENSIVE [facility] 2020-02-08 10:23:[address] [facility] CBC W/PLT COUNT & AUTO 2020-02-08 10:23:00 AmericaKristofer [facility] BILIRUBIN, DIRECT 2020-02-08 10:23:00 AmericaKristofer [facility] PLATELET ESTIMATION 2020-02-08 10:23:00 AmericaKristofer [facility] PROTHROMBIN TIME/INR 2020-02-01 09:25:00 AmericaKristofer theodore [facility] 2020-02-01 09:25:[address] [facility] CBC W/PLT COUNT & AUTO 2020-02-01 09:25:00 AmericaKristofer theodore [facility] BILIRUBIN, DIRECT 2020-02-01 09:25:00 AmericaKristofer [facility] RHYTHM STRIP - SCAN 2020-01-27 10:00:12 Provider, Default [facility] CARDIAC CATH REPORT - SCAN 2020-01-27 10:00:07 Provider, Default [facility] TRANSFUSE LEUKO-REDUCED 2020-01-26 22:41:07 Miguel Angel, Kaylin [facility] METANEPHRINES 2020-01-26 14:51:00 Blanca Hartley [facility] HEPATIC FUNCTION PANEL 2020-01-26 03:50:00 [facility] PROTHROMBIN TIME/INR 2020-01-26 03:50:00 [facility] CALCIUM, IONIZED 2020-01-26 03:50:00 [facility] COMPREHENSIVE METABOLIC 2020-01-26 03:50:[facility] 2020-01-26 03:50:00 [facility] MAGNESIUM 2020-01-26 03:50:00 Juana [facility] CBC W/PLT COUNT & AUTO 2020-01-26 03:50:00 Florian Kinney [facility] HEPATIC FUNCTION PANEL 2020-01-25 03:47:00 [facility] PROTHROMBIN TIME/INR 2020-01-25 03:47:00 [facility] BASIC METABOLIC PANEL (7) 2020-01-25 03:47:00 Leena Arias [facility] MAGNESIUM 2020-01-25 03:47:00 Juana [facility] CBC W/PLT COUNT & AUTO 2020-01-25 03:47:00 Florian Kinney [facility] (CELLAVISION MANUAL DIFF) 2020-01-25 03:47:00 Florian Kinney [facility] TRANSFUSION SERVICE REPORT 2020-01-24 18:00:13 Provider, [facility] - SCAN [facility] PULMONARY FUNCTION - SCAN 2020-01-24 13:10:09 Provider, [facility] SPIROMETRY 2020-01-24 10:41:00 [facility] (SINGLE BREATH 2020-01-24 10:41:00 [facility] LUNG VOLUMES 2020-01-24 10:41:00 [facility], Fidaa Hani [facility] 6 MINUTE WALK(FOR LUNG 2020-01-24 10:20:00 Mariana Lin [facility] - TRANSPLANT ONLY) [facility] HEPATIC FUNCTION PANEL 2020-01-24 03:57:00 [place] [facility] PROTHROMBIN TIME/INR 2020-01-24 03:57:00 [place] [facility] CALCIUM, IONIZED 2020-01-24 03:57:00 Kermit Nicole [facility] PHOSPHORUS 2020-01-24 03:57:00 Kermit Nicole [facility] BASIC METABOLIC PANEL (7) 2020-01-24 03:57:00 Leena Arias [facility] MAGNESIUM 2020-01-24 03:57:00 Juana [facility] CBC W/PLT COUNT & AUTO 2020-01-24 03:57:00 Juana [facility] PREPARE LEUKO-REDUCED RBC 2020-01-23 23:54:00 Vitor Orozco [facility] TRANSFUSION SERVICE REPORT 2020-01-23 18:00:37 ProviderBozena [facility] - SCAN [facility] HEPATIC FUNCTION PANEL 2020-01-23 04:32:00 [place] [facility] PROTHROMBIN TIME/INR 2020-01-23 04:32:00 [place] [facility] B-TYPE NATRIURETIC FACTOR 2020-01-23 04:32:00 Kermit Nicole [facility] (BNP) [facility] CALCIUM, IONIZED 2020-01-23 04:32:00 Kermit Nicole [facility] PHOSPHORUS 2020-01-23 04:32:00 Kermit Nicole [facility] BASIC METABOLIC PANEL (7) 2020-01-23 04:32:00 Leena Arias [facility] MAGNESIUM 2020-01-23 04:32:00 Leena Arias [facility] CBC W/PLT COUNT & AUTO 2020-01-23 04:32:00 Juana [facility] (CELLAVISION MANUAL DIFF) 2020-01-23 04:32:00 Juana [facility] PREPARE LEUKO-REDUCED 2020-01-22 23:54:00 Kaylin Michelle [facility] PLATELETS [facility] TRANSFUSION SERVICE REPORT 2020-01-22 18:01:00 Provider, Bozena [facility] TRANSFUSE LEUKO-REDUCED RED 2020-01-22 14:30:[address] [facility] - BLOOD CELLS Depbloomingtonylo [facility] CORTISOL 2020-01-22 08:23:00 IsmaMe sedrickhwish [facility] CALCIUM, IONIZED 2020-01-22 04:35:00 Russ Ha [facility] HEPATIC FUNCTION PANEL 2020-01-22 04:35:00 [facility] BASIC METABOLIC PANEL (7) 2020-01-22 04:35:00 Juana [facility] MAGNESIUM 2020-01-22 04:35:00 Juana [facility] CBC W/PLT COUNT & AUTO 2020-01-22 04:35:00 Juana [facility] (CELLAVISION MANUAL DIFF) 2020-01-22 04:35:00 Juana [facility] PROTHROMBIN TIME/INR 2020-01-22 04:34:00 Galdino [facility] DIRECT [facility]HG (KRISTI)/DIRECT 2020-01-22 04:34:00 Gregory [facility] ABORH, MANUAL 2020-01-22 04:34:00 Gregory, [facility] TRANSFUSION SERVICE REPORT 2020-01-21 18:00:48 Provider, Default [facility] BODY FLUID CULTURE + GRAM 2020-01-21 16:54:[address] [facility] BODY FLUID CELL COUNT WITH 2020-01-21 16:54:00 Kaylin Michelle [facility] US PARACENTESIS 2020-01-21 16:40:00 Galdino [facility] MISCELLANEOUS LAB ORDER 2020-01-21 09:31:00 Isbrandonsedrick [facility] HEPATIC FUNCTION PANEL 2020-01-21 09:31:00 [place] [facility] PROTHROMBIN TIME/INR 2020-01-21 09:31:00 [place] [facility] COMPREHENSIVE METABOLIC 2020-01-21 09:31:00 [facility] 2020-01-21 09:31:00 [facility] 2020-01-21 09:31:00 AriasLeena [facility] CORTISOL 2020-01-21 09:31:00 Issrikanth [facility] RETICULOCYTE COUNT 2020-01-21 09:31:00 Oumou Jenkins [facility] PERIPHERAL BLOOD SMEAR - 2020-01-21 09:31:00 Kaylin Michelle [facility] CBC W/PLT COUNT & AUTO 2020-01-21 09:31:00 [facility] VIEW 2020-01-21 09:10:00 [facility]/BEDS[facility] METANEPHRINES, 24 HOUR 2020-01-20 22:51:00 [place] [facility] URINE [facility] CATECHOLAMINES, 2020-01-20 22:51:00 [facility] - FRACTIONATED, 24HR URINE Medical Center TYPE AND SCREEN, AUTOMATED 2020-01-20 20:39:00 Miguel Angel, Kaylin C [facility] XR CHEST 1 VIEW 2020-01-20 20:28:00 [facility] PORTABLE/BEDSIDE [facility] TRANSFUSION SERVICE REPORT 2020-01-20 18:01:[address] [facility] - - SCAN Scanning [facility] MR ABDOMEN WITHOUT IV 2020-01-20 17:54:00 [facility] CONTRAST [facility] HEPATIC FUNCTION PANEL 2020-01-20 04:10:00 [facility] PROTHROMBIN TIME/INR 2020-01-20 04:10:00 [facility] CALCIUM, IONIZED 2020-01-20 04:10:00 [facility]eland [facility] COMPREHENSIVE METABOLIC 2020-01-20 04:10:00 [facility]eland [facility] PHOSPHORUS 2020-01-20 04:10:00 [facility] MAGNESIUM 2020-01-20 04:10:00 eLena Arias [facility] CBC W/PLT COUNT & AUTO 2020-01-20 04:10:00 Leland [facility] (CELLAVISION MANUAL DIFF) 2020-01-20 04:10:00 Leland [facility] PREPARE LEUKO-REDUCED RBC 2020-01-19 23:54:00 Miguel Angel, Kaylin [facility] URINALYSIS W/ MICROSCOPIC 2020-01-19 23:19:00 Leland [facility] SODIUM, RANDOM URINE 2020-01-19 23:19:00 [facility]eland [facility] BLOOD CULTURE 2020-01-19 21:45:00 Galdino [facility] BLOOD CULTURE 2020-01-19 21:44:00 Galdino [facility] [id number] 2020-01-19 21:43:00 Kristofer Cross [facility] TRANSFUSION SERVICE REPORT 2020-01-19 18:01:08 Bozena Lopes [facility] BLOOD GAS, ARTERIAL 2020-01-19 15:44:00 Kristofer Cross [facility] CRYPTOCOCCAL ANTIGEN 2020-01-19 15:04:00 Kristofer Cross [facility] MUMPS ANTIBODY, IGG 2020-01-19 15:04:00 Kristofer Cross [facility] RUBELLA ANTIBODY, IGG 2020-01-19 15:04:00 Kristofer Cross [facility] RUBEOLA ANTIBODY IGG 2020-01-19 15:04:00 Kristofer Cross [facility] VARICELLA ZOSTER ANTIBODY, 2020-01-19 15:04:[address] [facility] IGG [facility] R & L CATH / CORONARY 2020-01-19 13:47:00 Brian Browning [facility] ANGIOS (+/- LV) [facility] PROTHROMBIN TIME/INR 2020-01-19 11:00:00 [facility] US BREAST BILATERAL 2020-01-19 09:10:00 Kristofer Cross [facility] HEPATIC FUNCTION PANEL 2020-01-19 04:11:00 [facility] CALCIUM, IONIZED 2020-01-19 04:11:00 [facility] COMPREHENSIVE METABOLIC 2020-01-19 04:11:00 [facility]eland [facility] PHOSPHORUS 2020-01-19 04:11:00 [facility] B-TYPE NATRIURETIC FACTOR 2020-01-19 04:11:00 [facility] ALDOSTERONE 2020-01-19 04:11:[address] [facility] RENIN, PLASMA 2020-01-19 04:11:[address] [facility] METANEPHRINES 2020-01-19 04:11:[address] [facility] MAGNESIUM 2020-01-19 04:11:00 Juana [facility] CBC W/PLT COUNT & AUTO 2020-01-19 04:11:00 [facility] CT ABDOMEN WITHOUT IV 2020-01-19 00:40:00 [facility] CONTRAST [facility] US RENAL COMPLETE 2020-01-19 00:20:00 [place] PREPARE LEUKO-REDUCED 2020-01-18 23:54:00 Juana [facility] PLATELETS [facility] URINALYSIS W/ MICROSCOPIC 2020-01-18 20:49:00 [facility] SODIUM, RANDOM URINE 2020-01-18 20:49:00 Leland [facility] PROTEIN, RANDOM URINE 2020-01-18 20:49:00 [facility] CREATININE, RANDOM URINE 2020-01-18 20:49:00 [facility] EOSINOPHIL SMEAR, URINE 2020-01-18 20:49:00 [facility] REPORT 2020-01-18 18:31:51 Provider [facility] - SCAN Scanning [facility] TRANSFUSE LEUKO-REDUCED RED 2020-01-18 13:21:26 [facility] BLOOD CELLS [facility] NM MYOCARDIAL PERFUSION 2020-01-18 09:20:00 [facility] (REST & STRESS) Medical C enter TREADMILL 2020-01-18 08:57:35 Unknown, Hl7 [facility] TOLERANCE(NON-NUCLEAR Medical Ce nter TREADMILL) ECG 12-LEAD 2020-01-18 08:46:42 Unknown, Hl7 [facility] BASIC METABOLIC PANEL (7) 2020-01-18 06:10:00 Juana [facility] MAGNESIUM 2020-01-18 06:10:00 Juana [facility] T SPOT TB 2020-01-18 06:10:00 Miguel Angel [facility] HEPATIC FUNCTION PANEL 2020-01-18 06:10:00 Roscoe Ahmadi [facility] CBC W/PLT COUNT & AUTO 2020-01-18 06:10:00 Juana [facility] DIFFERENTIAL [facility] (CELLAVISION MANUAL DIFF) 2020-01-18 06:10:00 Juana [facility] ECG 12-LEAD 2020-01-17 11:05:03 Brian Browning [facility] REPORT OF PROCEDURE - 2020-01-17 09:11:05 Doris [facility] ENDOSCOPY [facility] REPORT OF PROCEDURE - 2020-01-17 08:39:23 Doris [facility] ENDOSCOPY [facility] TISSUE EXAM 2020-01-17 08:15:00 George [facility] TRANSFUSE LEUKO-REDUCED 2020-01-17 08:04:58 [place] [facility] UPPER ENDOSCOPY,BIOPSY 2020-01-17 08:00:00 George, [facility] COLONOSCOPY 2020-01-17 08:00:00 Doris [facility] PROTHROMBIN TIME/INR 2020-01-17 03:56:00 Jacquelin Mary [facility] BASIC METABOLIC PANEL (7) 2020-01-17 03:56:00 Juana [facility] MAGNESIUM 2020-01-17 03:56:00 Juana [facility] CBC W/PLT COUNT & AUTO 2020-01-17 03:56:00 Juana [facility] (CELLAVISION MANUAL DIFF) 2020-01-17 03:56:00 Juana [facility] TRANSFUSION SERVICE REPORT 2020-01-16 18:00:27 ProviderBozena [facility] BLOOD CULTURE 2020-01-16 12:25:00 Shady Gonzáles [facility] LACTATE DEHYDROGENASE (LDH) 2020-01-16 12:24:00 Iván [facility] RETICULOCYTE COUNT 2020-01-16 12:23:00 Iván [facility] BLOOD CULTURE 2020-01-16 11:25:00 [facility]1 ANTIGEN WITH HIV-1/2 2020-01-16 11:25:00 Shady Gonzáles [facility] VITAMIN B12 AND FOLATE 2020-01-16 11:25:00 Iván [facility][note 3] HAPTOGLOBIN 2020-01-16 11:25:00 [facility] ABDOMINAL WITH DOPPLER 2020-01-16 06:30:00 Shady Gonzáles [facility] PROTHROMBIN TIME/INR 2020-01-16 03:38:00 Graciela Stone [facility] HEPATIC FUNCTION PANEL 2020-01-16 03:38:[address] [facility] BASIC METABOLIC PANEL (7) 2020-01-16 03:38:00 AriasLeena CH I [facility] MAGNESIUM 2020-01-16 03:38:00 Leena Arias [facility] CBC W/PLT COUNT & AUTO 2020-01-16 03:38:00 [place] [facility] DRUG SCREEN, URINE, 2020-01-15 21:52:00 Shady Gonzáles [facility] TRANSPLANT [facility] BLOOD TYPING, AUTOMATED 2020-01-15 18:16:00 Shady Gonzáles [facility] CT CHEST WITHOUT IV 2020-01-15 17:54:[address] [facility] XR CHEST 2 VIEWS 2020-01-15 16:57:00 EliecerShady davidson [facility] XR MANDIBLE 4 VIEWS MIN 2020-01-15 16:39:00 Shady Gonzáles [facility] VITAMIN D, 25-HYDROXY 2020-01-15 16:17:00 EliecerShady davidson [facility] COMPREHENSIVE METABOLIC 2020-01-15 16:17:00 Shady Gonzáles [facility] BILIRUBIN, DIRECT 2020-01-15 16:17:00 EliecerShady davidson [facility] CALCIUM, IONIZED 2020-01-15 16:17:00 EliecerShady davidson [facility] ZINC 2020-01-15 16:17:00 EliecerShady davidson [facility] ANTI-NUCLEAR ANTIBODY (REILLY) 2020-01-15 16:17:00 EliecerShady davidson [facility] ACTIN (SMOOTH MUSCLE) 2020-01-15 16:17:[address] [facility] - ANTIBODY, IGG [facility] MITOCHONDRIA M2 ANTIBODY 2020-01-15 16:17:00 Shady Gonzáles [facility] (IGG) [facility] IRON, TIBC, % SAT. (WITHOUT 2020-01-15 16:17:00 Shady Gonzáles [facility] FERRITIN) [facility] FERRITIN 2020-01-15 16:17:00 Shady Gonzáles [facility] TRANSFERRIN 2020-01-15 16:17:00 Shady Gonzáles [facility] [id number]\\, SERUM 2020-01-15 16:17:00 Shady Gonzáles [facility] CERULOPLASMIN 2020-01-15 16:17:00 Shady Gonzáles [facility] ALPHA FETOPROTEIN (AFP), 2020-01-15 16:17:00 Shady Gonzáles [facility] TUMOR MARKER [facility] CARCINOEMBRYONIC ANTIGEN 2020-01-15 16:17:00 Shady Gonzáles [facility] (CEA) [facility] CARBOHYDRATE ANTIGEN 19-9 2020-01-15 16:17:00 Shady Gonzáles [facility] (CA 19-9) [facility] HEMOGLOBIN A1C 2020-01-15 16:17:00 Shady Gonzáles [facility] TSH 2020-01-15 16:17:00 Shady Gonzáles [facility] T3 2020-01-15 16:17:00 Shady Gonzáles [facility] T4 2020-01-15 16:17:00 Shady Gonzáles [facility] ETHANOL 2020-01-15 16:17:00 Shady Gonzáles [facility] FIBRINOGEN 2020-01-15 16:17:00 Shady Gonzáles [facility] PROTHROMBIN TIME/INR 2020-01-15 16:17:00 Shady Gonzáles Irene [facility] APTT 2020-01-15 16:17[facility]00 [facility] IGM 2020-01-15 16:17[facility]00 [facility] SUR[facility] ANTIGEN 2020-01-15 16:17:00 EliecerShady davidson Irene [facility] HEPATITIS B SURFACE 2020-01-15 16:17:00 [facility] HEPATITIS B CORE ANTIBODY, 2020-01-15 16:17:00 Shady Gonzáles [facility] TOTAL [facility] HEPATITIS B CORE ANTIBODY, 2020-01-15 16:17:00 EliecerShady davidson [facility] IGM [facility] HEPATITIS C ANTIBODY 2020-01-15 16:17:00 EliecerShady morales [facility] RPR 2020-01-15 16:17:00 Shady Gonzáles [facility] CYTOMEGALOVIRUS ANTIBODY, 2020-01-15 16:17:[address] [facility] IGG [facility] CYTOMEGALOVIRUS ANTIBODY, 2020-01-15 16:17:00 Eliecer [facility] IGM [facility] EBV ANTIBODY, IGM 2020-01-15 16:17:00 Shady Gonzáles [facility] TYPE AND SCREEN, AUTOMATED 2020-01-15 16:17:00 Eliecer [facility] 2D ECHO W/ DOPPLER 2020-01-15 14:45:[address] [facility] (CW/PW/COLOR) [facility] CAROTID DOPPLER BILATERAL 2020-01-15 14:41:00 Shady Gonzáles [facility] SODIUM, RANDOM URINE 2020-01-15 12:46:00 Graciela Stone [facility] CREATININE, RANDOM URINE 2020-01-15 12:46:00 Graciela Stone [facility] AMMONIA 2020-01-15 08:32:00 Graciela Stone [facility] HEPATITIS PANEL, ACUTE 2020-01-15 08:32:00 Graciela Stone [facility] BASIC METABOLIC PANEL (7) 2020-01-15 03:56:00 Graciela Stone [facility] PROTHROMBIN TIME/INR 2020-01-15 03:56:00 [facility] 2020-01-15 03:56:00 Graciela Stone [facility] MAGNESIUM 2020-01-15 03:56:00 Graciela Stone [facility] URIC ACID 2020-01-15 03:56:00 Shady Gonzáles [facility] GAMMA GLUTAMYL TRANSFERASE 2020-01-15 03:56:00 Shady Gonzáles [facility] (GGT) [facility] PHOSPHORUS 2020-01-15 03:56:00 Eliecer [facility] LIPID PANEL 2020-01-15 03:56:00 Eliecer [facility] CBC W/PLT COUNT & AUTO 2020-01-15 03:56:00 [facility]FF) 2020-01-15 03:56:00 Graciela Stone [facility] BASIC METABOLIC PANEL (7) 2020-01-14 21:59:00 Graciela Stone [facility] PROTHROMBIN TIME/INR 2020-01-14 21:59:00 [facility] 2020-01-14 21:59:00 Graciela Stone [facility] CBC W/PLT COUNT & AUTO 2020-01-14 21:59:00 [facility] SARS-COV2/RT-PCR ([facility] & 2020-01-14 19:28:00 Tameka Hunter [facility] - REF LABS) [facility] BASIC METABOLIC PANEL (7) 2020-01-03 14:34:[address] [facility] HEPATIC FUNCTION PANEL 2020-01-03 14:34:[address] [facility] PROTHROMBIN TIME/INR 2020-01-03 14:34:[address] [facility] ALPHA FETOPROTEIN (AFP), 2020-01-03 14:34:[address] [facility] - TUMOR MARKER [facility] CBC W/PLT COUNT & AUTO 2020-01-03 14:34:00 LarryKadie mcdermott [facility] DI[facility] Plan of Care Planned Activity Planned Date Details Comments Source Future Scheduled 2030-01-[address] [facility] Test 00:00:00 malignant neoplasm of [facility] colon (procedure) [code = 715195174] Future Scheduled 2023-01-[address] [facility] Test 00:00[facility]00 (procedure) [code = Medical Center 16912127] Future Scheduled 2020-04-27 INFLUENZA VACCINE [place] [facility] Test 00:00:00 [code = INFLUENZA VACCINE] Future Scheduled 2020-03-28 INFLUENZA VACCINE (#1) [facility] [code = INFLUENZA Medical Ce nter VACCINE (#1)] Future Scheduled 2019-07-28 Medicare IPPE (WELCOME [facility] Test 00:00:00 TO MEDICARE) [code = Medical Center Medicare IPPE (WELCOME TO MEDICARE)] Future Scheduled 2019 65+ PNEUMOCOCCAL [place] [facility] Test 00:00:00 VACCINE (1 of 2 - PCV13) [code = 65+ PNEUMOCOCCAL VACCINE (1 of 2 - PCV13)] Future Scheduled 2019 P[address]OCCAL [address] - Test 00:00:00 LOW/MEDIUM RISK (1 of Medica l Center 2 - PCV13) [code = PNEUMOCOCCAL 65+ LOW/MEDIUM RISK (1 of 2 - PCV13)] Future Scheduled 2004 BREAST CANCER [place] [facility] Test 00:00:00 SCREENING [code = BREAST CANCER SCREENING] Future Scheduled 2004 [facility] Test 00:00:00 [code = COLONOSCOPY SCREENING] Future Scheduled 2004 SHINGLES VACCINES (#1) [place] [facility] Test 00:00:00 [code = SHINGLES VACCINES (#1)] Future Scheduled 1975 Screening for [facility] thodist Test 00:00:00 malignant neoplasm of cervix (procedure) [code = 243481622] Future Scheduled [address] [facility] Test 00:00:00 malignant neoplasm of [facility]ica [facility] Center cervix (procedure) [code = 582624636] Future Scheduled [address] [facility] - Test 00:00:00 malignant neoplasm of [facility] breast (procedure) [code = 954544311] Encounters Start End Encounter Admission Attending Care Care Encounter Source Date/Time Date/Time Type Type Clinicians Facility Department ID 2020-02-21 2020-02-21 Outpatient Rafia Sanford [id number] 16:00:00 16:00:00 [facility] 2020-02-14 2020-02-14 Outpatient Rafia Moratayat [id number] 10:00:00 10:00:00 [facility] Medicine Outpati ent Clinics 2020-02-03 2020-02-03 Outpatient Rafia Moratayat [id number] 11:48:00 11:48:00 [facility] Medicine Medicine Outpati ent Clinics 2020-01-13 2020-01-13 Outpatient Rafia Martinezosport [id number] 14:40:00 14:40:00 [facility] Medicine Outpati ent Clinics 2020-01-03 2020-01-03 Transition Edgardo Grovesyahaira [id number] 00:00:00 00:00:00 of Care Aye Mcmulleny [id number] [place] [id number] [id number] 2019-12-28 2019-12-31 [facility] Yahir Borden [facility] 1.2.840. [id number] 21:39:45 13:10:00 Encounter Jacklyn Lewis Maude [id number] [place] 4.2.7.2.686 [place] [id number] 2019-11-03 2019-11-03 Outpatient Rafia Moratayat [id number] 13:20:00 13:20:00 [facility] 2019-09-10 2019-09-10 Outpatient Rafia Moratayat [id number] 09:30:00 09:30:00 [facility] ent [facility] 2019-08-31 2019-08-31 Outpatient Rafia Moratayat [id number] 08:00:00 08:00:00 [facility] ent Clinics 2019-08-24 2019-08-24 Outpatient Rafia Moratayat [id number] 10:41:00 10:41:00 [facility] 2019-08-19 2019-08-19 Outpatient Rafia Moratayat [id number] 13:00:00 13:00:00 [facility] Results Test Description Test Time Test Comments Results Result Comments Source Comprehensive metabolic panel 2020-03-11 05:00:00 Test Item Value Reference Range Interpretation Comme nts Glucose (test code = 86 mg/dL 65-99 Fasting ) reference inter beatriz BUN (test code = 23 mg/dL 20101128) Creatinine (test code = 1.65 mg/dL 0.5-0.99 H For patients >49 years of 20130920) age, the refere nce limitfor Creati nine is approximately 1 3% higher for peopleident ified as -Marisela n. eGFR If NonAfricn Am 32 > OR = 60 L (test code = 4453754) mL/min/1.73m2 eGFR If Africn Am (test 37 > OR = 60 L code = 9110972) mL/min/1.73m2 BUN/Creatinine Ratio 14 6- 22 (calc) (test code = 5791586) Sodium (test code = 138 mmol/L 135-346 8725007) Potassium, Serum (test 4.4 mmol/L 3.5-5.3 code = 9346570) Chloride (test code = 106 mmol/L 98-628 0523351) Carbon Dioxide, Total 23 mmol/L 20-32 (test code = 6786287) Calcium, Serum (test 8.7 mg/dL 8.6-10.4 code = 20101125) Protein, Total, Serum 5.7 g/dL 6.1-8.1 L (test code = 20101202) Albumin (test code = 3.1 g/dL 3.6-5.1 L ) GLOBULIN (QUEST) (test 2.6 1.9- 3.7 g/dL code = 2934695) (calc) Albumin Globulin Ratio 1.2 1.0- 2.5 (test code = 1759-0) (calc) Bilirubin, Total (test 3.8 mg/dL 0.2-1.2 H code = 20101204) Alkaline Phosphatase, S 81 U/L 37-153 (test code = 6768-6) AST (SGOT) (test code = 30 U/L 10-35 20101208) ALT (SGPT) (test code = 9 U/L 6-29 ) VALENTE (test code = VALENTE) FASTING:YESFASTING: YES RAC (test code = RAC) Performing Organization Information: Site ID: JOSHUA Name: [facility] Address: [address] [place] [phone] Director: Alonso Carrasco Lab Interpretation Abnormal (test code = 12430-3) [facility], [id number] 05:00:00 Test Item Value Reference Range Interpretation Comments Bilirubin, Total (test 3.8 mg/dL 0.2-1.2 H code = 20101204) Bilirubin, Direct (test 1.2 mg/dL < OR = 0.2 H code = 20101216) Bilirubin, Indirect 2.6 0.2- 1.2 mg/dL H (test code = 6653846) (calc) VALENTE (test code = VALENTE) FASTING:YESFASTING: YES RAC (test code = RAC) Performing Organization Information: Site ID: [facility] Name: [facility] Address: [address] [place] [phone] Director: Alonso Carrasco Lab Interpretation Abnormal (test code = 52228-8) [facility] with platelet count + automated [id number] 05:00:00 Test Item Value Reference Interpretation Comments Range WBC (test code = 2.7 3.8- 10.8 L ) Thousand/uL RBC (test code = 2.38 3.80- 5.10 L 789-8) Million/uL Hemoglobin (test 9.2 g/dL 11.7-15.5 L code = ) Hematocrit (test 25.3 % 35-45 L code = ) MCV (test code = 106.3 fL 80-100 H ) MCH (test code = 38.7 pg 27-33 H ) MCHC (test code = 36.4 g/dL 32-36 H ) RDW (test code = 12.7 % 11-15 ) Platelets (test 60 140- 400 L Review of th e code = ) Thousand/uL peripheral s mear revealsdecrease d numbers of plat elets. MPV (test code = 11.6 fL 7.5-12.5 6373547) # Neutros (test 1480 1,500 - 7,800 L code = 20200220) cells/uL # Lymphs (test code 664 850- 3,900 L = 731-0) cells/uL # Monos (test code 343 200- 950 = ) cells/uL # Eos (test code = 203 15- 500 711-2) cells/uL # Baso (test code = 11 0- 200 704-7) cells/uL % Neutros (test 54.8 % code = ) % Lymphs (test code 24.6 % = 20200217) % Monos (test code 12.7 % = ) % Eos (test code = 7.5 % 20200215) % Baso (test code = 0.4 % 20200216) Comment(s) (test Review of p eripheral code = 20200222) smear confirmsautomat ed results. VALENTE (test code = FASTING:YESFASTIN VALENTE) G: YES RAC (test code = Performing RAC) Organization Information: Site ID: RGA Name: [facility] Address: [address] [place] [phone] Director: Alonso Carrasco Lab Interpretation Abnormal (test code = 83225-0) [facility] HospitalProthrombin time/[id number] 05:00:00 Test Item Value Reference Range Interpretation Comments INR (test code = 1.3 H Reference R von ) 0.9-1.1Moderate -i ntensity Warfar in Therapy 2.0-3.0Higher-i nt ensity Warfarin Therapy 3.0-4 .0 PT (test code = 13.3 9.0- 11.5 sec H For more ) information on this test, go to:[email or web address] 04 VALENTE (test code = FASTING:YESFASTING VALENTE) : YES RAC (test code = Performing RAC) Organization Information: Site ID: RGA Name: [facility] Address: [address] [place] [phone] Director: Alonso Carrasco Lab Interpretation Abnormal (test code = 20698-4) [facility] HospitalMISCELLANEOUS LAB [id number] 12:14:00 Test Item Value Reference Range Interpretation Comments SCAN RESULT (test code = 6014203) Miscellaneous lab [id number] 12:14:00Scan ResultQUEST NON-INTERFACED LABSan [facility] Psychiatric HospitalMagnesium2020-07-21 13:17:00 Test Item Value Reference Range Interpretation Comments Magnesium (test code = 1.8 mg/dL 1.6-2.6 99284-9) VALENTE (test code = VALENTE) Sander Operator ID - LM Lab Interpretation (test Normal code = 14343-7) [facility] HospitalMAGNESIUM2020-07-21 13:17:00 Test Item Value Reference Range Interpretation Comments MAGNESIUM (BEAKER) (test code = 1.8 mg/dL 1.6-2.6 627) Sander Operator ID - LMCOMPREHENSIVE METABOLIC [id number] 13:17:00 Test Item Value Reference Range Interpretation [...] S NOT APPLICABLE FOR DIALYSIS PATIEN TS. Sander Operator ID - LMSpecimen moderately ictericBILIRUBIN, [id number] 13:17:00 Test Item Value Reference Range Interpretation Comments BILIRUBIN DIRECT (BEAKER) (test 2.5 mg/dL 0.1-0.5 H code = 706) Sander Operator ID - LMPROTHROMBIN TIME/[id number] 13:05:00 Test Item Value Reference Range Interpretation [...] heart valves.CBC with platelet count + automated [id number] 12:59:00 Test Item Value Reference Range Interpretation [...] K/CU MM L MPV (test code = 72785-8) 10.0 fL 9.4-12.3 nRBC (test code = [...] 2801) Lab Interpretation (test code = Abnormal 89311-7) [facility] HospitalCB W/PLT COUNT & AUTO [id number] 12:59:00 Test Item Value Reference Range Interpretation [...] 0-1 PERCENT (BEAKER) (test code = 2801) PLATELET [id number] 15:30:00 Test Item Value Reference Range Interpretation Comments Platelet Estimate (test DECREASED ADEQUATE A code = 00406-3) VALENTE (test code = VALENTE) FASTING:YESFASTING: YES RAC (test code = RAC) Performing Organization Information: Site ID: RGA Name: [facility] Address: [address] [place] [phone] Director: Alonso Carrasco Lab Interpretation (test Abnormal code = 24971-3) [facility] HospitalMetanephrines2020-07-06 10:36:00 Test Item Value Reference Interpretation Comments Range Metanephrine (test 46 pg/mL < OR = 57 This mushtaq t was developed code = 5665677) and its anal ytical performance characteristics havebeen determined by [employer] [facility].It h as not been cleared or appr jean-claude by FDA. This assay has been validatedpursua nt to the CLIA regulation s and is used for clinic al purposes. Normetanephrine 213 pg/mL < OR = 148 H This test w as developed (test code = and its analyti steven 3026933) performance characteristics havebeen determined by [employer] [facility].It h as not been cleared or appr jean-claude by FDA. This assay has been validatedpursua nt to the CLIA regulation s and is used for clinic al purposes. Total Metanephrine 259 pg/mL < OR = 205 H Elevatio ns > 4-fold upper (test code = reference range : strongly 7813843) suggestive of apheochromocyto ma(1). Elevations >1 - 4-fold upper reference range:significa nt but not diagnostic, may be due to medications or stress. Suggestrunning 24 hr urine fractionated me tanephrines and serum Chrom ogranin A forconfirmation . Reference: (1) Latrice Alva al, Plasma Program Support Assistant mogranin A or Urine FractionatedMet anephrines Follow-Up Testi ng Improves the Diagnostic Accuracy of PlasmaFractiona madai Metanephrines f or Pheochromocytom a. The Journal of ClinicalEndocri nology and Metabolism 93 ( 1),91-95, 2008. For addit ional information, pl ease refer tohttp://educat ion.theRightAPI.Lorena Gaxiola/f aq/MetFract Free(This link is being provided for informational/e ducational purposes only.) This test was developed a nd its analytical perf ormance characteristics havebeen determined by [facility].It h as not been cleared or appr jean-claude by FDA. This assay has been validatedpursua nt to the CLIA regulation s and is used for clinic al purposes. VALENTE (test code = Performing Lab VALENTE) [facility]Z [employer] [facility] [address] [place] [address] I Shashank ADRIAN, PhD, AMINA Lab Interpretation Abnormal (test code = 49073-5) [facility] HospitalCatecholamines, Fractionated, 24hr [id number] 11:55:00 Test Item Value Reference Interpretation Comments Range TOTAL VOLUME (test 1000 mL code = 1089511) Epinephrine,24 Hr <2 2- 24 mcg/24 h L Result b elow clinical Ur (test code = reportable r von for ) this analyte, w hich is 2 mcg/L.Repo rted result was calc ulated using 2 mcg/L. This test was develo ped and its analyti steven performance characteristics havebeen determ ined by [facility] .It has not been cl eared or approved by FDA. This assay has been validatedpursua nt to the CLIA regula tions and is used for clinical purpos es. Norepinephrine 9 15- 100 mcg/24 L This test was (test code = h developed and i ts ) analytical performance characteristics havebeen determ ined by [facility] .It has not been cl eared or approved by FDA. This assay has been validatedpursua nt to the CLIA regula tions and is used for clinical purpos es. Calculated Total 9 26- 121 mcg/24 L This mushtaq t was E+Ne (test code = h developed and its 20190907) analytical performance characteristics havebeen determ ined by [facility] .It has not been cl eared or [...] steven performance characteristics havebeen determ ined by [facility] .It has not been cl eared or approved by FDA. This assay has been validatedpursua nt to the [place] regula tifreeman [facility] institute and is used for clinical purpos es. Creatinine,24 Hr 0.88 0.50- 2.15 Urin (test code = g/24 h ) VALENTE (test code = Performing Lab VALENTE) [employer] [facility] [id number] [place] [address], [place] [address] Mark Encarnacion MD, PhD, AMINA Lab Interpretation Abnormal (test code = 07032-6) [facility] HospitalMISCELLANEOUS LAB [id number] 12:33:00 Test Item Value Reference Range Interpretation Comments SCAN RESULT (test code = 3478230) [id number] 16:28:00 Test Item Value Reference Range Interpretation Comments Lab Interpretation (test code = Normal 84717-7) [facility] HospitalMetanephrines, 24 hour [id number] 12:57:00 Test Item Value Reference Interpretation Comments Range TOTAL VOLUME (test 1000 mL code = 5191514) Metanephrine (test 205 90- 315 This mushtaq t was code = 7598787) mcg/24 h developed an d its analytical perf ormance characteristics havebeen determ ined by [facility] .It has not been cleare d or approved by FDA . This assay has been validatedpursua nt to the CLIA regula tions and is used for clinical purpos es. Normetanephrine 657 122- 776 This test w as (test code = mcg/24 h developed and i ts 20191029) analytical perf ormance characteristics havebeen determ ined by [facility] .It has not been cleare d or approved by FDA . This assay has been validatedpursua nt to the [place] regula tifreeman heart institute and is used for clinical purpos es. [...] perf ormance characteristics havebeen determ ined by [facility] .It has not been cleare d or approved by FDA . This assay has been validatedpursua nt to the CLIA regula tions and is used for clinical purpos es. VALENTE (test code = Performing Lab VALENTE) [employer] [facility] [address] [place] [address] I Shashank ADRIAN, PhD, AMINA Lab Interpretation Abnormal (test code = 41189-7) [facility] HospitalCalcium, [id number] 05:42:00 Test Item Value Reference Range Interpretation Comments Calcium, Ion (test code = 1993-) 1.11 mmol/L 1.12-1.27 L pH, Blood (test code = 93219-2) 7.41 Lab Interpretation (test code = Abnormal 62566-6) [facility] HospitalCALCIUM, [id number] 05:42:00 Test Item Value Reference Range Interpretation Comments CALCIUM IONIZED (BEAKER) (test 1.11 mmol/L 1.12-1.27 L code = 698) PH, BLOOD (BEAKER) (test code = 7.41 1810) COMPREHENSIVE METABOLIC [id number] 04:57:00 Test Item Value Reference Range Interpretation [...] S NOT APPLICABLE FOR DIALYSIS PATIEN TS. Sander Operator ID - BSSpecimen moderately ictericHepatic function [id number] 04:53:00 Test Item Value Reference Range Interpretation Comments Protein, Total (test code 5.7 6.0- 8.3 gm/dL L = 2885-2) Albumin (test code = 3.4 g/dL 3.5-5 L 07556-1) Total Bilirubin (test 6.9 mg/dL 0.2-1.2 H code = 1974-2) Bilirubin, Direct (test 2.2 mg/dL 0.1-0.5 H code = 1967-7) Alkaline Phosphatase 58 U/L 40-150 (test code = 6768-6) AST (test code = 1920-8) 36 U/L 5-34 H ALT (test code = 1742-6) 13 U/L 6-55 VALENTE (test code = VALENTE) Sander Operator ID - BSSpecimen moderately icteric Lab Interpretation (test Abnormal code = 48124-3) [facility] HospitalPhosphorus2020-07-01 04:53:00 Test Item Value Reference Range Interpretation Comments Phosphorus (test code = 3.2 mg/dL 2.3-4.7 2777-1) VALENTE (test code = VALENTE) Sander Operator ID - BS Lab Interpretation (test Normal code = 55571-6) [facility] HospitalPHOSPHORUS2020-07-01 04:53:00 Test Item Value Reference Range Interpretation Comments PHOSPHORUS (BEAKER) (test code = 3.2 mg/dL 2.3-4.7 604) Sander Operator ID - [id number] 04:53:00 Test Item Value Reference Range Interpretation Comments MAGNESIUM (BEAKER) (test code = 1.7 mg/dL 1.6-2.6 627) Sander Operator ID - BSHEPATIC FUNCTION [id number] 04:53:00 Test Item Value Reference Range Interpretation [...] (test code = 13 U/L 6-55 347) Sander Operator ID - BSSpecimen moderately ictericCBC W/PLT COUNT & AUTO [id number] 04:42:00 Test Item Value Reference Range Interpretation [...] PERCENT (BEAKER) (test code = 2801) PROTHROMBIN TIME/[id number] 04:36:00 Test Item Value Reference Range Interpretation [...] (test No organisms seen code = 1123) [facility] HospitalBODY FLUID CULTURE + GRAM [id number] 12:05:00 Test Item Value Reference Range Interpretation Comments CULTURE (BEAKER) (test No growth code = 1095) GRAM STAIN RESULT <1+ White blood cells (BEAKER) (test code = seen 1123) GRAM STAIN RESULT No organisms seen (BEAKER) (test code = 58729) Manual [id number] 07:35:00 Test Item Value Reference Range Interpretation [...] Poikilocytes (test code = 2+ moderate 966) Freddie Cells (test code = 2+ moderate 474) Artifact (test code = Present 3432) Platelet Conc (test code Decreased = 3438) VALENTE (test code = VALENTE) Sander Operator ID - [id number] ID - Maria Del Carmen Quintana comments: Slide comments: Lab Interpretation (test Abnormal code = 32181-6) [facility] W/PLT COUNT & AUTO [id number] 07:35:00 Test Item Value Reference Range Interpretation [...] (BEAKER) (test code 2+ moderate = 966) FREDDIE CELLS (BEAKER) (test code = 2+ moderate 474) ARTIFACT (CELLAVISION)(BEAKER) Present (test code = 3432) PLATELET CONCENTRATION Decreased (CELLAVISION)(BEAKER) (test code = 3438) Sander Operator ID - [id number] ID - Maria Del Carmen Davidsonwest comments: Slide comments:Basic Metabolic [id number] 06:24:00 Test Item Value Reference Range Interpretation Comments Sodium (test code = 140 meq/L 263-675 5919-2) Potassium (test code 3.4 meq/L 3.5-5.1 L = 2823-3) Chloride (test code = 105 meq/L 98-107 5-0) CO2 (test code = 25 meq/L 22-29 2027-9) BUN (test code = 31 mg/dL 7-21 H 3094-0) Creatinine (test code 2.35 mg/dL 0.57-1.25 H = 2160-0) Glucose (test code = 108 mg/dL 70-105 H 2345-7) Calcium (test code = 8.7 mg/dL 8.4-10.2 75224-8) EGFR (test code = 21 mL/min/1.73 [place] [address]-2) NOT ACCURATE CREATININE CLEARANCE IN PREDICTING GLOMERULAR FILTRATION RATE . ESTIMATED GFR I S NOT APPLICABLE FOR DIALYSIS PATIENTS. VALENTE (test code = VALENTE) Sander Operator ID - MIKEDORIAN Lucinda moderately icteric Lab Interpretation Abnormal (test code = 76154-2) [facility] METABOLIC [id number] 06:24:00 Test Item Value Reference Range Interpretation Comments SODIUM (BEAKER) 140 meq/L 136-145 (test code = 381) POTASSIUM (BEAKER) 3.4 meq/L 3.5-5.1 L (test code = 379) CHLORIDE (BEAKER) 105 meq/L 98-107 (test code = 382) CO2 (BEAKER) (test 25 meq/L code = 355) BLOOD UREA NITROGEN 31 [...] S NOT APPLICABLE FOR DIALYSIS PATIEN TS. Sander Operator ID - PIDORIAN LSpecimen moderately ictericHEPATIC FUNCTION [id number] 06:23:00 Test Item Value Reference Range Interpretation [...] (test code = 13 U/L 6-55 347) Sander Operator ID - MITCH LSpecimen moderately [id number] 06:22:00 Test Item Value Reference Range Interpretation Comments MAGNESIUM (BEAKER) (test code = 1.8 mg/dL 1.6-2.6 627) Sander Operator ID Mercedes MEYER LPROTHROMBIN TIME/[id number] 04:22:00 Test Item Value Reference Range Interpretation [...] = No growth in 5 days 6463-4) [facility] HospitalBLO[facility] [id number] 23:00:00 Test Item Value Reference Range Interpretation Comments CULTURE (BEAKER) (test No growth in 5 days code = 1095) BLOOD [id number] 23:00:00 Test Item Value Reference Range Interpretation Comments CULTURE (BEAKER) (test No growth in 5 days code = 1095) DLCO (single breath diffusion)2020-01-24 10:41:00Epifanio Giles, LACQUER MIXER, RIG HAND 01/24/2020 10:52 [facility] PFT CHARTING REPORT Infection Control/Hand Hygiene procedures followed throughout the encounter with patient: YesPatient Identification Method: Patient name verified on armband, and Medical record on armband, Is the order complete?: Yes Account ID#: [id number] Name: Cici Calderon Birthdate: 1955 Age: 64 [...] and patient released from the lab without adverseoutcome.[facility] HospitalPulmonary Funct Lab [id number] 10:41:00Epifanio Giles, LACQUER MIXER, [facility] 01/24/2020 10:52 [facility] PFT CHARTING REPORT Infection Control/Hand Hygiene procedures followed throughout the encounter with patient: YesPatient Identification Method: Patient name verified on armband, and Medical record on armband, Is the order complete?: Yes Account ID#: [id number] Name: Cici Calderon Birthdate: 1955 Age: 64 [...] and patient released from the lab without adverseoutcome.[facility] HospitalLu [id number] 10:41:00Epifanio Giles, LACQUER MIXER, RIG HAND 01/24/2020 10:52 [facility] PFT CHARTING REPORT Infection Control/Hand Hyg iene procedures followed throughout the encounter with patient: YesPatient Identification Method: Patient name verified on armband, and Medical record on armband, Is the order complete?: Yes Account ID#: [id number] Name: Cici Calderon Birthdate: 1955 Age: 64 [...] and patient released from the lab without adverseoutcome.[facility]6 MINUTE WALK(FOR LUNG TRANSPLANT ONLY)2020-01-24 10:20:00Janina Meehan, JUVENAL, RIG HAND 01/24/2020 2:39 [facility] PFT CHARTING REPORT Infection Control/Hand Hygiene procedures followed throughout the encounter with patient: YesPatient Identification Method: Patient name verified on armband, and Medical record on armband, Is the order complete?: Account ID#: [id number] Name: Cici Calderon Birthdate: 1 09/08/1954 Age: [...] patient released from the lab without adverse outcome.[facility] HospitalU/S, [id number] 09:43:00 Referring: Dr. Rowdy Christie to be ordered:->Body Fluid Culture (w/Gram Stain, C\\T\\S)Labs marko ordered:->Cell CountReason for exam:->Acute Kidney Injury - rule out SBP - can remove volume of up to 4-5 L (given ANDERS)Should this be performed at the bedside?->YesFINAL REPORT Ultrasound guided paracentesis Clinical History: Ascites. Sedation: None. Patrol Agent: Christine Ward PA-C Supervising Physician: Natan Chisholm MD Per Diem Interpreter: None. Estimated Blood Loss: < 1 mL. [...] anesthesia was achieved with lidocaine, a 5 Romanian one-step catheter was advanced into theperitoneal cavity under ultrasound guidance. After completion of drainage, the catheter was removed.There was no evidence of complication. Impression:Successful ultrasound guided paracentesis. Signed:Natan Chisholm Verified Date/Time: 01/24/2020 09:43:05 Reading Location: [address] Ultrasound Reading Room US [id number] 09:43:00Interface, External Ris In - 01/24/2020 9:45 AM CDTFINAL REPORT Ultrasound guided paracentesis Clinical History: Ascites. Sedation: None. Patrol Agent: Christine Ward PA-C Supervising Physician: Natan Chisholm MD Per Diem Interpreter: None. Estimated Blood Loss: < 1 mL. [...] anesthesia was achieved with lidocaine, a 5 Romanian one-step catheter was advanced into the peritoneal cavity under ultrasound guidance. After completion of drainage, the catheter was removed. There was no evidence of complication. Impression:Successful ultrasound guided paracentesis. Signed: Natan Chisholm MDReport Verified Date/Time: 12/27 09:43:05 Reading Location: [address] Ultrasound [facility] METABOLIC [id number] 06:18:00 Test Item Value Reference Range Interpretation [...] S NOT APPLICABLE FOR DIALYSIS PATIEN TS. Sander Operator ID Mercedes RUTHERFORDpecimen moderately [id number] 05:38:00 Test Item Value Reference Range Interpretation Comments PHOSPHORUS (BEAKER) (test code = 2.8 mg/dL 2.3-4.7 604) Sander Operator ID - MITCH [id number] 05:38:00 Test Item Value Reference Range Interpretation Comments MAGNESIUM (BEAKER) (test code = 1.8 mg/dL 1.6-2.6 627) Sander Operator ID Mercedes MEYER LHEPATIC FUNCTION [id number] 05:38:00 Test Item Value Reference Range Interpretation [...] (test code = 11 U/L 6-55 347) Sander Operator ID Mercedes RUTHERFORDpecimen moderately ictericCALCIUM, [id number] 04:56:00 Test Item Value Reference Range Interpretation Comments CALCIUM IONIZED (BEAKER) (test 1.09 mmol/L 1.12-1.27 L code = 698) PH, BLOOD (BEAKER) (test code = 7.43 1810) PROTHROMBIN TIME/[id number] 04:48:00 Test Item Value Reference Range Interpretation [...] mechanical heart valves.CBC W/PLT COUNT & AUTO [id number] 04:36:00 Test Item Value Reference Range Interpretation [...] (BEAKER) (test code = 2801) Prepare Leuko-Red [id number] 23:54:00 Test Item Value Reference Range Interpretation Comments CROSSMATCH (test code = 2264) COMPATIBLE Unit ABO (test code = A Pos 4890765) UNIT NUMBER (test code = [id number] 934-0) Status (test code = 1096155) TX_TIMEINCHART Blood Bank Product (test code RED BLOOD CELLS = 2263) PRODUCT CODE (test code = M6025Z98 933-2) [facility] HospitalRubeola antibody [id number] 18:06:00 Test Item Value Reference Range Interpretation Comments Rubeola Ab, 235 AU/mL REFERENCE RANGE : Igg (test code <13.50 AU/mL = 51350-8) AU/mL Interpretation ==== <13.50 Negative 13.50-16.49 Equivocal >16.49 Positive A posi tive result indicate s that the patient hasantibody to measles virus. It does notdifferentiat e between an acti ve or past infection. The clinical diagno sis must be interpr eted inconjunction w ith clinical signs and symptoms ofthe patient. For additional information, pl ease refer tohttp://educat ion.[facility] stDiagnostics.c om/faq/ AWE226(This rosa k is being provided for informational/e ducatio nal purposes on ly.) VALENTE (test code Performing Lab = VALENTE) *QDID [facility] [address] [place] [address] Sudhakar Hargrove MD [facility] HospitalMitochondria M2 Antibody (IgG)2020-01-23 13:50:00 Test Item Value Reference Range Interpretation Comments Mitochondria M2 Ab <20.0 See Note: U Reference (test code = Range:NEGATIVE: ) < OR = 20.0EQUIVOCAL: 20.1-24.9POSITI V E: > OR = 25.0 VALENTE (test code = Performing Lab VALENTE) EZ [employer] [facility] [address] [place] [address] I Shashank ADRIAN, PhD, AMINA [facility] HospitalMumps antibody, [id number] 13:38:00 Test Item Value Reference Range Interpretation [...] (test Performing Lab code = VALENTE) *[facility] [facility] [address] [place] [address] Sudhakar Hargrove MD [facility] HospitalCBC W/PLT COUNT & AUTO [id number] 12:26:00 Test Item Value Reference Range Interpretation [...] (BEAKER) (test 1+ few code = 481) FREDDIE CELLS (BEAKER) (test code = 1+ few 474) BASOPHILIC STIPPLING (BEAKER) Present (test code = 473) ARTIFACT (CELLAVISION)(BEAKER) Present (test code = 3432) PLATELET CONCENTRATION Decreased (CELLAVISION)(BEAKER) (test code = 3438) Sander Operator ID - [id number] ID - Charo Jordan comments: Slide comments: BASIC METABOLIC [id number] 07:18:00 Test Item Value Reference Range Interpretation [...] S NOT APPLICABLE FOR DIALYSIS PATIEN TS. Sander Operator ID - MITCH LSpecimen moderately [id number] 07:17:00 Test Item Value Reference Range Interpretation Comments MAGNESIUM (BEAKER) 1.6 mg/dL 1.6-2.6 Specimen slightly (test code = 627) hemolyzed Sander Operator ID - MITCH [id number] 07:17:00 Test Item Value Reference Range Interpretation Comments PHOSPHORUS (BEAKER) 2.4 mg/dL 2.3-4.7 Specimen slightly (test code = 604) hemolyzed Sander Operator ID - MITCH LHEPATIC FUNCTION [id number] 07:17:00 Test Item Value Reference Range Interpretation [...] Specimen slightly (test code = 347) hemolyzed Sander Operator ID - MITCH LSpecimen moderately ictericB-type Natriuretic Factor (BNP) 2020-01-23 06:55:00 Test Item Value Reference Range Interpretation Comments BNP (test code = 72119-0) 2179 pg/mL 0-100 H VALENTE (test code = VALENTE) Sander Operator ID - MITCH L Lab Interpretation (test Abnormal code = 00256-1) [facility] HospitalB-TYPE NATRIURETIC FACTOR (BNP)2020-01-23 06:55:00 Test Item Value Reference Range Interpretation Comments B-TYPE NATRIURETIC PEPTIDE 2179 pg/mL 0-100 H (BEAKER) (test code = 700) Sander Operator ID - MITCH MOSERLCIUM, [id number] 06:31:00 Test Item Value Reference Range Interpretation Comments CALCIUM IONIZED (BEAKER) (test 1.07 mmol/L 1.12-1.27 L code = 698) PH, BLOOD (BEAKER) (test code = 7.45 1810) PROTHROMBIN TIME/[id number] 06:00:00 Test Item Value Reference Range Interpretation [...] for patients wiht mechanical heart valves.Prepare Leuko-Red [id number] 23:54:00 Test Item Value Reference Range Interpretation Comments Unit ABO (test code = 6966349) O Pos UNIT NUMBER (test code = [id number] 934-0) Status (test code = 3703655) TX_TIMEINCHART Blood Bank Product (test code PLATELETS = 2263) PRODUCT CODE (test code = Y7375U13 933-2) [facility] W/PLT COUNT & AUTO [id number] 10:35:00 Test Item Value Reference Range Interpretation [...] CONCENTRATION Decreased (CELLAVISION)(BEAKER) (test code = 3438) Sander Operator ID - [id number] ID - Lizett OverholtUser comments: Slide comments: [id number] 10:05:00 Test Item Value Reference Range Interpretation Comments Cortisol, Total (test code 1.6 ug/dL 3.7-19.4 L = 2755) VALENTE (test code = VALENTE) Sander Operator ID - MITCH L Lab Interpretation (test Abnormal code = 86189-5) [facility] HospitalCORTISOL2020-06-27 10:05:00 Test Item Value Reference Range Interpretation Comments CORTISOL, TOTAL (BEAKER) (test code 1.6 ug/dL 3.7-19.4 L = 2755) Sander Operator ID - MITCH LDirect AHG (KRISTI)/Direct [id number] 07:49:00 Test Item Value Reference Range Interpretation Comments Direct AHG-IGG (test code = 1006-6) NEGATIVE Direct AHG-C3B, C3D (test code = NEGATVIE 1003-3) [facility] HospitalABORH, [id number] 07:37:00 Test Item Value Reference Range Interpretation Comments ABO Grouping (test code = 2588) A Rh Factor (test code = 2589) POS [facility] HospitalCALCIUM, [id number] 06:31:00 Test Item Value Reference Range Interpretation Comments CALCIUM IONIZED (BEAKER) (test 1.10 mmol/L 1.12-1.27 L code = 698) PH, BLOOD (BEAKER) (test code = 7.44 1810) BASIC METABOLIC [id number] 06:20:00 Test Item Value Reference Range Interpretation [...] S NOT APPLICABLE FOR DIALYSIS PATIEN TS. Sander Operator MABLE RUTHERFORDpecimen moderately nylikvbAEGFKMDBP3721-10-68 06:12:00 Test Item Value Reference Range Interpretation Comments MAGNESIUM (BEAKER) (test code = 1.7 mg/dL 1.6-2.6 627) Sander Operator MABLE MEYER LHEPATIC FUNCTION [id number] 06:12:00 Test Item Value Reference Range Interpretation [...] (test code = 10 U/L 6-55 347) Sander Operator MABLE RUTHERFORDpecimen moderately ictericPROTHROMBIN TIME/[id number] 05:48:00 Test Item Value Reference Range Interpretation [...] is2.5-3.5 for patients wiht mechanical heart valves.Renin, [id number] 22:50:00 Test Item Value Reference Range Interpretation Comments PRA,LC/MS/MS 1.51 ng/mL/h 0.25-5.82 This test was developed (test code = and its analyti steven 5064668) performance characteristics havebeen determined by [facility].It h as not been cleared or approved by FDA. This as say has been validatedp ursuant to the CLIA reg ulations and is used for clinical purposes. VALENTE (test Performing Lab code = VALENTE) E[employer] [facility] [address] [place] [address] Mark Encarnacion MD, PhD, AMINA [facility] HospitalBody fluid cell count with [id number] 18:33:00 Test Item Value Reference Range Interpretation Comments Appearance (test code = 9335-1) Hazy Clear A Color (test code = 6824-7) Cele Colorless, Straw A RBCs (test code = 20122-2) 4000 <=1 /cu mm H Adjusted WBC Count (test code = 86 <=5 /cu mm H 81360-9) Lining Cells (test code = 1 <=1 /cu mm 47880-5) % Segs (test code = 51803-3) 7 % % Lymphs (test code = 00075-4) 83 % % Monos (test code = 10140-6) 10 % % Eos (test code = 35994-4) 0 % % Baso (test code = 32660-2) 0 % Container Body Fluid (test code Sterile Vial = 2873) Lab Interpretation (test code = Abnormal 83848-1) [facility] HospitalBODY FLUID CELL COUNT WITH [id number] 18:33:00 Test Item Value Reference Range Interpretation [...] = 2873) Peripheral Blood Smear - Hold [id number] 15:19:00 Test Item Value Reference Range Interpretation Comments Peripheral Smear Save (test code = saved 1815) [facility] HospitalPERIPHERAL BLOOD SMEAR - HOLD [id number] 15:19:00 Test Item Value Reference Range Interpretation Comments PERIPHERAL SMEAR SAVE (BEAKER) (test saved code = 1815) [id number] 14:41:00 Test Item Value Reference Interpretation Comments Range Aldosterone (test 22 ng/dL Adult Ref erence code = 5760356) Ranges for Aldosterone: Upright 8:00-10 :00 am < or = 28 ng/ dL Upright 4:00-6: 00 pm < or = 21 ng/ dL Supine 8:00-10 :00 am 3-16 ng/dL Th is test was developed a nd its analytical perf ormance characteristics havebeen determ ined by [facility] [place] .It has not been cleare d or approved by FDA . This assay has been validatedpursua nt to the CLIA regula tions and is used for clinical purpos es. VALENTE (test code = Performing Lab VALENTE) EZ [employer] [place] [address] [place] [address] Mark Encarnacion MD, PhD, AMINA [facility] Spot [id number] 13:05:00 Test Item Value Reference Range Interpretation Comments T-Spot TB (test code = 91613-7) Negative Neg Ctrl Spot Count (test code = 0 88735-4) Panel A Spot (test code = 03618-1) 0 Panel B Spot (test code = 52128-3) [address] (test code = 0 65965-0) Scan Result (test code = 4560520) [facility] SPOT [id number] 13:05:00 Test Item Value Reference Range Interpretation Comments T-SPOT TB (BEAKER) (test code = Negative 1683) NEG CONTROL SPOT COUNT (BEAKER) 0 (test code = 1684) PANEL A SPOT (BEAKER) (test code = 0 1685) PANEL B SPOT (BEAKER) (test code = 0 1686) POS CONTROL SPOT CT (BEAKER) (test 0 code = 1687) SCAN RESULT (test code = 8299607) BLOOD [id number] 13:00:00 Test Item Value Reference Range Interpretation Comments CULTURE (BEAKER) (test No growth in 5 days code = 1095) BLOOD [id number] 12:00:00 Test Item Value Reference Range Interpretation Comments CULTURE (BEAKER) (test No growth in 5 days code = 1095) [id number] 10:25:00 Test Item Value Reference Range Interpretation Comments CORTISOL, TOTAL (BEAKER) (test code 5.1 ug/dL 3.7-19.4 = 2755) Sander Operator ID - TUAN CCOMPREHENSIVE METABOLIC [id number] 10:23:00 Test Item Value Reference Range Interpretation [...] S NOT APPLICABLE FOR DIALYSIS PATIEN TS. Sander Operator ID - TUAN CSpecimen moderately ictericVaricella zoster antibody, IgG 2020-01-21 10:15:00 Test Item Value Reference Range Interpretation Comments Varicella IgG (test 3.6 code = 35832-4) VALENTE (test code = VALENTE) VARICELLA ZOSTER RESULT INTERPRETATIONS: <=0.8 Al Nonreactive: Presumed non-immune to VZV 0.9-1.0 Al Equivocal >=1.1 Al Reactive: Presumed immune to VZV [facility] HospitalRubella antibody, [id number] 10:15:00 Test Item Value Reference Range Interpretation Comments Rubella IgG Quant (test 127.0 <8.0 IU/mL H code = 8014-3) VALENTE (test code = VALENTE) Rubella IgG Result Interpretation: </= 7.0 IU/mL Negative - Presumed non-immune 8.0 - 9.9 IU/mL Equivocal >= 10.0 IU/mL Positive - Presumed immune Lab Interpretation (test Abnormal code = 41095-9) [facility] HospitalRUBELLA ANTIBODY, [id number] 10:15:00 Test Item Value Reference Range Interpretation Comments RUBELLA IGG QUANTITATION (BEAKER) 127.0 IU/mL <8.0 H (test code = 572) Rubella IgG Result Interpretation: </= 7.0 IU/mL Negative - Presumed non- immune 8.0 - 9.9 IU/mL Equivocal >= 10.0 IU/mL Positive - Presumed immune VARICELLA ZOSTER ANTIBODY, [id number] 10:15:00 Test Item Value Reference Range Interpretation Comments VARICELLA ZOSTER IGG (AL) (BEAKER) 3.6 (test code = 3197) VARICELLA ZOSTER RESULT INTERPRETATIONS: <=0.8 Al Nonreactive: Presumed non-immune to VZV 0.9-1.0 Al Equivocal >=1.1 Al Reactive: Presumed immune to VZVReticulocyte [id number] 10:12:00 Test Item Value Reference Range Interpretation Comments % Retic (test code = 5.3 % 0.5-1.7 H 27413-5) VALENTE (test code = VALENTE) Sander Operator ID - [id number] Lab Interpretation (test Abnormal code = 51834-4) [facility] HospitalRETICULOCYTE [id number] 10:12:00 Test Item Value Reference Range Interpretation Comments RETICULOCYTE COUNT PCT (BEAKER) (test 5.3 % 0.5-1.7 H code = 575) Sander Operator ID - [id number] 10:06:00 Test Item Value Reference Range Interpretation Comments PHOSPHORUS (BEAKER) (test code = 3.1 mg/dL 2.3-4.7 604) Sander Operator ID - TUAN [id number] 10:06:00 Test Item Value Reference Range Interpretation Comments MAGNESIUM (BEAKER) (test code = 1.7 mg/dL 1.6-2.6 627) Sander Operator ID - TUAN CHEPATIC FUNCTION [id number] 10:06:00 Test Item Value Reference Range Interpretation [...] (test code = 12 U/L 6-55 347) Sander Operator ID - TUAN Mckeonecimen moderately ictericRAD, CHEST, 1 VIEW, NON DEPT [...] Walker Verified Date/Time: 01/21/2020 10:03:32 Reading Location: [facility] Radiology Reading Room XR chest 1 view portable / [id number] 10:03:00 Interface, External Ris In - 01/21/2020 [...] Walker Verified Date/Time: 01/21/2020 10:03:32 Reading Location: [facility] Radiology Reading Room [facility] W/PLT COUNT & AUTO [id number] 09:59:00 Test Item Value Reference Range Interpretation [...] PERCENT (BEAKER) (test code = 2801) PROTHROMBIN TIME/[id number] 09:53:00 Test Item Value Reference Range Interpretation Comments PROTIME (BEREBECCA) (test code = 24.6 seconds 11.9-14.2 H 759) INR (BEAKER) (test code = 370) 2.3 <=5.9 Effective 12/23/2018: PT Reference Range ChangeNew: 11.9-14.2 Previous: 11.7- 14.7RECOMMENDED COUMADIN/WARFARIN INR THERAPY RANGESSTANDARD DOSE: 2.0-3.0 Includes: PROPHYLAXIS for venous thrombosis, systemic embolization; TREATMENT for venous thrombosis and/or pulmonary embolus.HIGH RISK: Target INR is2.5-3.5 for patients wiht mechanical heart valves.MR, ABDOMEN, WITHOUT CONTRAST 2020-01-21 07:51:00Referring: Dr. Rowdy LopestFINAL REPORT TECHNIQUE: MRI of the abdomen WITHOUT [...] Verified Date/Time: 01/21/2020 07:51:30 Reading Location: [facility] Diagnostic Imaging Reading Room - [place] [address] 1129 MR abdomen without IV contrast 2020-01-21 07:51:00Interface, [...] Verified Date/Time: 01/21/2020 07:51:30 Reading Location: [facility] Diagnostic Imaging Reading Room - [facility] F1 1129 [facility] Type and screen, [id number] 22:06:00 Test Item Value Reference Range Interpretation Comments ABO/RH AUTOMATED (BEAKER) (test A POSITIVE code = 2260) Ab Scrn (test code = 890-4) NEGATIVE [facility] HospitalRAD, CHEST, 1 VIEW, NON [id number] 21:16:00 Referring: Dr. Rowdy Zhang for exam:->JVD [...] MDReport Verified Date/Time: 01/20/2020 21:16:28 Reading Location: [facility] C0[facility] Transitional Reading Room Cryptococcal [id number] 11:36:00 Test Item Value Reference Range Interpretation Comments Cryptococcal Antigen, Serum Negative Negative, Interference (test code = 71303-4) Lab Interpretation (test code Normal = 08833-9) [facility] HospitalCRYPTOCOCCAL [id number] 11:36:00 Test Item Value Reference Range Interpretation Comments CRYPTOCOCCAL ANTIGEN, SERUM Negative Negative, Interference (BEAKER) (test code = 1828) CBC W/PLT COUNT & AUTO [id number] 09:56:00 Test Item Value Reference Range Interpretation [...] CONCENTRATION Decreased (CELLAVISION)(BEAKER) (test code = 3438) Sander Operator ID - [id number] ID - Lizett OverholtUser comments: Slide comments: COMPREHENSIVE METABOLIC [id number] 05:46:00 Test Item Value Reference Range Interpretation [...] S NOT APPLICABLE FOR DIALYSIS PATIEN TS. Sander Operator ID - MITCH LSpecimen moderately bayvawkRLFSVZUBON8151-86-78 05:37:00 Test Item Value Reference Range Interpretation Comments PHOSPHORUS (BEAKER) (test code = 2.8 mg/dL 2.3-4.7 604) Sander Operator ID - MITCH [id number] 05:37:00 Test Item Value Reference Range Interpretation Comments MAGNESIUM (BEAKER) (test code = 1.9 mg/dL 1.6-2.6 627) Sander Operator ID - MITCH LHEPATIC FUNCTION [id number] 05:37:00 Test Item Value Reference Range Interpretation [...] (test code = 9 U/L 6-55 347) Sander Operator ID - MITCH RUTHERFORDpecimen moderately ictericPROTHROMBIN TIME/[id number] 04:53:00 Test Item Value Reference Range Interpretation [...] is2.5-3.5 for patients wiht mechanical heart valves.CALCIUM, [id number] 04:45:00 Test Item Value Reference Range Interpretation Comments CALCIUM IONIZED (BEAKER) (test 1.14 mmol/L 1.12-1.27 code = 698) PH, BLOOD (BEAKER) (test code = 7.36 1810) Sodium, random [id number] 00:37:00 Test Item Value Reference Range Interpretation Comments Sodium Urine (test <20 meq/L code = 2955-3) VALENTE (test code = Reference Range: No VALENTE) NormalsOperator ID - PIAYA L [facility], RANDOM [id number] 00:37:00 Test Item Value Reference Range Interpretation Comments SODIUM URINE (BEAKER) (test code = < meq/L 243) Reference Range: No NormalsOperator ID - PIAYA LUrinalysis w/Microscopic 2020-01-20 00:30:00 Test Item Value Reference Range Interpretation Comments Color, UA (test code = Yellow 5778-6) Clarity, UA (test code = Hazy 5767-9) Specific Largo, UA (test 1.017 1.001-1.035 code = 5811-5) pH, UA (test code = 5.5 5.0-8.0 5803-2) Protein, UA (test code = 20 mg/dL Negative A 15734-1) Glucose, UA (test code = Negative Negative 365) Ketones, UA (test code = Negative Negative 0954-8) Bilirubin, UA (test code = Negative Negative 61438-7) Blood, UA (test code = Small Negative A 05347-6) Nitrite, UA (test code = Negative Negative 5802-4) Leukocytes, UA (test code Trace Negative A = 5799-2) Urobilinogen, UA (test 0.2 mg/dL 0.2-1 code = 12918-7) RBC, UA (test code = 1 /HPF 15803-7) WBC, UA (test code = 3 /HPF 5821-4) Bacteria, UA (test code = Rare 10102-7) Squam Epithel, UA (test 3 /HPF code = 28094-3) Hyaline Casts, UA (test 3 /LPF code = 06089-2) Specimen Source (test code = 2795) VALENTE (test code = VALENTE) Sander Operator ID - [auto]Sander Operator ID - tech Lab Interpretation (test Abnormal code = 12971-4) [facility] + Reflex to Culture 2020-01-20 00:30:00 Test Item Value Reference Range Interpretation Comments Color, UA (test code = 5778-6) Yellow Clarity, UA (test code = 5767-9) Hazy Specific L[place], UA (test code = 1.017 1.001-1.035 5811-5) pH, UA (test code = 5803-2) 5.5 5.0-8.0 Protein, UA (test code = 52925-7) 20 mg/dL Negative A Glucose, UA (test code = 365) Negative Negative Ketones, UA (test code = 2514-8) Negative Negative Bilirubin, UA (test code = 25239-5) Negative Negative Blood, UA (test code = 96505-5) Small Negative A Nitrite, UA (test code = 5802-4) Negative Negative Leukocytes, UA (test code = 5799-2) Trace Negative A Urobilinogen, UA (test code = 0.2 mg/dL 0.2-1 56027-0) RBC, UA (test code = 64647-1) 1 /HPF WBC, UA (test code = 5821-4) 3 /HPF Bacteria, UA (test code = 54369-1) Rare Squam Epithel, UA (test code = 3 /HPF 41300-2) Hyaline Casts, UA (test code = 3 /LPF 09020-9) Specimen Source (test code = 2795) Lab Interpretation (test code = Abnormal 62264-6) [facility] REFLEX URINE [id number] 00:30:00 Test Item Value Reference Range Interpretation [...] SOURCE(BEAKER) (test code = 2795) URINALYSIS W/ [id number] 00:30:00 Test Item Value Reference Range Interpretation [...] /LPF 514) SOURCE(BEAKER) (test code = 2795) Sander Operator ID - [auto]Sander Operator ID - techActin (Smooth Muscle) Antibody, IgG [...] of patients withautoimmune hepatitis (AIH) type 1, echsozevuolhb45 % of patients with autoimmune cholangitis,lis sherine mately 30% of patients with primary biliarycirrhosi s, and approximate ly 2% of healthy people.High beatriz ues are closely correlated with AIH type 1. VALENTE (test code = Performing Lab VALENTE) [employer] [address] [address] Mark Encarnacion MD, PhD, AMINA Lab Interpretation Abnormal (test code = 84620-9) [facility]2020-[facility] 20:06:00 Test Item Value Reference Interpretation Comments Range Zinc (test code = 39 60- 130 mcg/dL L This te st was ) developed and i ts analytical performance characteristics have been determined by [facility] . It has not been cleared or appr jean-claude by theFDA. This assay has been validated pursu ant to the CLIA regulations and is used for clinic al purposes. VALENTE (test code = Performing Lab VALENTE) *[employer] [facility], [address] [place] [address] Jorje Jauregui MD, PhD Lab Interpretation Abnormal (test code = 40963-1) [facility] [id number] 16:12:00 Test Item Value Reference Range Interpretation Comments Case Report (test code Surgical Pathology = 104) Report Case: [id number] Authorizing Provider: Sylvie George MD Collected: 01/17/2020 08:15 AM Ordering Location: [address] Received: 01/17/2020 01:50 PM Service Pathologist: Humaira Mendez MD Specimen: Duodenum, biopsy ADDENDUM (test code = z2purDMkYMGmwWYlXmZjHA 3381) BrAFFph5duUVXvsCKcBuQb MzNcZnRuYmpcdWMxXGRlZm Ddn4wwk456nEIjj2dgLKYf HsC1oXGvSEFhcDVlQ975YM BvLIwmc5dfa2YfBBOrwGGs y9F1BJJAjljwqFf3rVjoD1 4ug3V0IkugL1enNNFaZGXc I2VxNK5zBDGnWyx0YDU8KV J2WOTyXDJmM3TnSI9hVUJe rOFpBAx5h4uakJfcSHMlNI I1i8ocJOseqlXjGF3rnf0y nId6c3egdiWbUWBqHDWhkS DRRVHsV2RbpLskZg2okWu4 nSuvEkzgBXR3Uuw7IO4epr 60wle8bVtwOEIlilgfLkZ3 NBgsDXCudbixQTn7BOhgLL WrcUZ0OXZdnLYyD3DfVJHr SK6eckm7OXB9ZDemXYXyFz D9LHJntSTlXWHsrZvwXFor b444RFD7ZdStIU0mE5Ctk5 R7pI8wyFQxHQFamUExNuZt WATwer6ooIWfANnyk0GpUN E3zwM7oVRiiNXjMTVuWT01 Mmvki1LuZhvhVBM9ZRDgly Ont3Xwn9tvHuSkcgTzZ3fg G4OlFTHwEEAdREEwPbSnju Axv6Wxe7LkhGVleQm7i2su TBLdQDQjpMdoa9fhMBO1EF ZyV4G7fBQhw6rkLAztOFNs hVQ8znJ1MAPrgGUkI0DggL 0mFLMxVX2aowx9w9bxOUG0 OFsjLEFeTuW8aqR4MMUatT VjIMGqhBzqAKxjl603TBJ0 AtVwURZld0GnO4LrcIgoJ4 9ryHsqV82nGUMwaIuezB0h hXgzxW7sEpLaUjZdIRviTI JkXHBsYWluXGYxXGZzMjBc bGFuZzEwMzNcaGljaFxmMV zmXgVeFIVrEXksC8paWbMx PoKaBGFRLIoSPTKPZZ7CEL 5LGXtTAKcVM6FJEQQEZgXW RVBPUlQgVEhFIEZJTkRJTk dTIElOIFRIRSBERUVQRVIg BTETTPkPLK9QTXAVNHMPUE 3PF2bcYN5OVCiLMsNjTGcE SKECVdAUBNKIBBiKC3HKMs pccGFyXHFsXHBsYWluXGYw RIQlPrXqqUwvuT0mFpYvAr YiHVzmXF3hNPSlB7vqoTVn NUDrHRMoC8ldJiDumP4jdV xmMVxmczIwXHBhciAgRFVP FRAKTZ6aPNUTUY2OC93NFR MgQklPUFNZOlxwYXIgICAt OKRLGEQAEQImQnDIR7PDFh TWYrLPCVZwAYRJZH0LDDQZ S5TMWJVsEKIFF7rQB8GVQw VdI9QjWR8YLLGYKCZSS5UA Jz5VMFLGHRsxNXZkGJPoDX 4RAZTZKMXQHzCDUE2HGIFO TElBQyBESVNFQVNFIFNFRU 5ccGFyICAgLSBOTyBHUkFO VUxPTUFTLCBEWVNQTEFTSU FzE3AkUFWEOLkKLQ9ZHTNT RUVOXHBhcn0= DIAGNOSIS (test code = n7gyjDCdURPoa9gcNHDkrT 3220) FuZzEwMzNcZnRuYmpcdWMx KRqdfnHcIDhwf1QdZ4IwHj AwMFxhbnNpXGRlZmxhbmcx NFThEIR4jdSsBRPrCUcnEA XnJNinMj2loHGmdTfzKnHu KGHhn4utzcSZklyjtRu2z0 xrNJNrLrZ9vMRtXZatE8cp sdCwrXErTTOgJNw9gZ22RK YsoZ3bbRYsLMuskfJuIfA8 OLkpTUPcBeF9YCRxoUAiXB YmK8fpBTRnGKipVNBtNXas vNRnHLI6kCbft0D0oWWyfE SiwOqyMcJiBlDgZBEPr4At ZWz4fVmkL2RdVJPmVuL1pH QgUGFyYWdyYXBoIEZvbnQ7 sT95RKjyczD7qGYak0Cip6 3eu027uS4osFDyYSD1DXPo OASrrEKnELFeBZT0XETxbV ViY3o9QaCymYMaC8X7GqHh cWAlV3V9PtFvbGFqH8V9Ai IfpZMfCXXpwAOvHq7enFFg iJOuuq3yps89XCW3c9GbaG qkAVO9KSE9VhSnNl1frUPg UVCxGX8kMpQhhZWsFSStqf 82hIulRRyjdpMoyQ9pTgLc KESwmJHqOEDzYD2vkEKoXW AuzV2dgqamUCYeBlKeqism YRRpjMqezgIkFu5vxIizYC U7OLgtP6dzhY5wVlS8LQwy E4thsC3rTHl5RYbkrMJ4SD HouK5oKT8giitmg3weChPy YN1rlfiak2eoNvVaOV7hnb x9k8srAsPyEY8ntdjfc6pf NzIwXGhlYWRlcnkwXGZvb3 VxxjjiVYSve8AdF9MzqWmb N70skLnqT10jXXXjaCyniK 2qwUwvwN5uKbNoEhNiKFvp bFxwbGFpblxmMVxmczIwXG glfcyxYFSdARogE1pnAiWh JPSagLbcXTxbl8CsLIJqLO QpGwXlSNVDUSBNXN5vVVWX VG4QI66JPFZuOlfCUPYEWb jtMHWvFFNsA4PWNMJAVHHJ BIvoAvPMQ07YWoFJBG6WTM UZGNpEEZEIR8AQWI0AI54G NWIWMXNRQIsZA1BTPLSkWg 1ERC4WMGZwZOYMIBQVYGIC VLkoEOYviZDaYWYrko19IV B0PcPzq6H6EDY6UYLyRAQq x0npTRPgvKLyWjMmGeCtFa NbOtbmsCZbMXNyPuCel5qy b143wENro2diGAVdAqR1aK RyEHKahEItO085NDReZAhr g3cbk3HvODLpyBWnn6X5OI XNdcopjYj4wHilV99nv5E1 MezbX6vgFUTiIWDkF1VtWN 4iCCRtZjk2NFP7SHX5SMGv DRXtS3ZmAC0aWUMrbLVmOW t1i0vfeBgwUBRuRAY9d2cr XHgthcJdPG6ins1bjJm8o7 xjczEgRGVmYXVsdCBQYXJh V6BwwJkaVb9gbMe5rWdlGc mfEPO2Zpk0FN5nhp76mgk2 qOvsJMWibxupSnA0BMgsMP LspbxoDBk6WZebKLAfvRP3 DOWbgGHyA5LtKEGiIS7ytj z0IHV1LAyzSADhUyV6VPRp dXYqVHQhiZfgAJkqa961DE P7ArTnBO9lN3Ldm5C4sV8v aXRcZGVmdGFiNzIwXGZvcm 4nkEMdLUwnn9YnVXJ1vjS6 zXEjlFXcFQNtKhP8FMumZD 7cfd60NWUdCMH6bd3xhTEu nGrorqWajAJeXUbvU3VlDV Qpm026SDLbJ8GnQIJop4X8 duSkOmHdWSFnzAA0inQ5ZF EuGV6ijztgr4jmDBfkXHwl NIWhvkE2ybW0GSAgbSNhH3 KchU9mLFLkHY3upkjya5au OFO9APmoNPHfXQL6PvUeYG Ukz1Loxgm8WhZhz5DlsNYu QEbjK49ma464XIPybkHzW6 xwbGFpblxwbGFpblxmMFxm ojF4KUYeXLgbvmiqKVCpHO haC8jnFmYcAMTlzRqdZPwd l0IdGVSaLZSwTgSbeLCzRQ DtRua9BRVnuQZwAJVcQnOs E5zkbuunBeCRFSWtp6fdJ8 omyYRYkKReR6YtEFlyoyYs QEjlWYyrLJV8UVO6Mk24Vy E7YJWkzk26 CPT Code(s) (test code q0lopZAxNLQlmBAuWjEeYX = 3356) EhHRXmj2vsCRJesGYpWvLi MzNcZnRuYmpcdWMxXGRlZm Rae5oll276xAMyo5lgQORv DeS8eSJgRPWdaDKzB332o6 jai3oqreFgoLZ2AVZlZRB3 TRwhidRoemM6TVynvWOaCg B3SJgrzeRuWVdjehEginFq Gor9QCCkJ495UHU8lThof3 zsSMY7LSOqWNTkXtLkMd8z jBDiJ282OKWbESBNBJPqiQ c4ASRmntKcaxVppDDAr539 N291n1fkAGUdshWlaRzMfb yru1hnW661THRbiNHvvmLy PeJoUCUivPEmeXW9RMRaFY 5jjyvyThYfDF8eizwaOzHl QP1wgks6BjYpKB8azulrLf MmMOpmZDHraqqbJZChy8Xz wwqxTX8yP3Pzo1O1dI6xvI HcEYRyrUWmGqIgEXHase1i xJFhKYsgo8ErDEF5wcP9aW GteQZmVIIeDT33Ugsey5Iq OzryRTW8TBWaioQrh9Tjk2 xdDaOgqcEqF8lxI9OjHYPb NFPkVBTxVqUvasFoh7Sdi5 QkuKUhqZe5g9vfEVFeXTJc nTqli5rrUDN9AIHsC2P2pI Kio9qzIYiaHGHmeJH5lejn VHxwUGFjhmH8qkooUVhqTB EstUX6barzUZpuJMZaIlX3 xuqhCTioTXWzBEB5RZqsj8 68QDN4CSemHehjJZeyYDQu bmNvbnRccGduZGVjXHBsYW luXHBsYWluXGYwXGZzMjRc uJyjaKshmE3wYvYnYuCuMB rePS7pIKApR4lxhERzKUVc EEVzO4qoUjEuzV1zqMpkFY glgoDpQWt1TxU4CDBuzg1= CLINICAL HISTORY (test m2cbwRGgRLDhyAKvYuDuYF code = 3356) YaWQZxf1zgQIMqcZBwTpFf MzNcZnRuYmpcdWMxXGRlZm Cqw6wje907fFLfy5ghMSTm YpM4oAMwTVWwpCHhC386JH MqIYblh2lbn9BjUBXebDEa j0N3UOPWmiiagRo9gIutK4 9eg5N4JhmkQ5tlSIAkEYwc HEIxVVhjzMVjSKV5RYHxUF C6EOsmpoDgvgW7VEojiSKg MmK1UBn7r8vwqXijELCbCQ O5b8fiMHwlipAyUR9uxe3g nXb8v7tkogMnGXVpFVTulN EUOMXfQ9JkiCkiIp9haZw9 cMivShtqYRN7Sjp6YS7sdw 63nun6zWfmRLUurypqOcI3 BPkpVCJuvqysVCx1FTpwEO JnbDcyMFxtYXJncjcyMFxt YXJndDcyMFxtYXJnYjcyMF lqSACfFOT4BRabf385YHH1 DPqkh2pdr3dwuAPhOti1GL ZnJoIyHpezATqhv1Mez6kq CUCwcr1cNWH9nGHluDrdh6 S3yBZgQPRirWCcgrYkFRFs JiJ5SCvgWO4izr18UXOuUG C6af5emBRjpWlymsVxuIJh QIrdE1IsMMOpq516JVQjJ6 AhIRVxh9W0qvNbQeGbEFAy hLX4coR5GVBbOZj2yXTreb N4fbHtgEVqU7qamJ56EsCy nFMuI6JunR90EvHjjGCpF2 RtoI00QmFicFQsS5PeyX01 XrUjxLHsQZZmwAUeVj2byX FuhVBpe4MlpUSdCRaiE21w d385HJXgxoIhG2kydOYpdf xwbGFpblxmMFxmczIwXHFs XHBsYWluXGYwXGZzMjBccG dkjB1pAlEnWfDzPFQGpc2w FQV5ggF9GAUltZWxAXZaZN 8vM86arSbrTtevaEW9LAAu IZTyc7olto2nI67fkFTfnX EgUDWmHDRpkjXerM8eoE1e MUYwNBjzc6WwfyraCX4ttU lhXHBhcn0= SPECIMEN SOURCE (test g2irdHFhLHOiqBWwEqQrNU code = 3377) YeREIym5huYADatLDvYuLy MzNcZnRuYmpcdWMxXGRlZm Zab8tlx009bQIkv7mtPUJl MlH8rDVsVVZalGFlB175s9 yoi1ehapKqjYY6NUOiFZK8 AUjuqdOdgnB2KFgzoKQoKt L7WTsfwdNyAWlrsiVdjcCw Hsg4ADRrD245QKH3aGbsq5 icNNR3JGJcIUBxKqWkPg4u pJSzR764CWUtUJLGONGbiX q1KCBovrJlpdSftUMOs598 V099v4bhPETyjaLfoBsDjv ugr6riI757ADQnpVBsxvCc EwXrILQqdQNjcQM5ESWcZE 4jekjcZuUgWY5rnqvtVkHi VB3zwnw8ArKdHS9gqjdgVh VoVVfdSNCemvmkOLPxb4Vj tvimNW5oW1Ngl5A9xC2qoR TiZIMlsYIaBiYlZSXegf4h fUUwLAigz3NnQPG3wlD8kI WsaWXxMEOuGO20Aqbmn4Ou HrpkNKV8IBLduqCld3Chi7 lbTtNpxuSuT6biF5GrBPCu WDAbEJXzBvRaqsAfo9Mmn7 IqmTAqvXj3x0exCDWlZDCe uBxix4voYDB8YSSpT2V3aI Bzt4bbMKtbLMClmHX1nuos WZbfLOYfafB9iicxCFyhHE TpdHL8ysvhGYbiSNUoEtD3 wjkgPOjlMPAuBBK4ROtwb2 42VXM5GPltKezoXXirBJFg bmNvbnRccGduZGVjXHBsYW luXHBsYWluXGYwXGZzMjRc jBcpwAxeuT5aOrHsYmYgIZ mlUF1jGCWsP1omoXCaINXk OGQmO5jrYhBnmT2zmYbiYM ofqnSlACZvSFO0h5CgxnMd DrXqzT5ye6ncqPGkcL== GROSS DESCRIPTION (test r5cojMVqWOMnaVCgJjItBH code = 3366) EsRNCif7yvCCXbsFPoCyRd MzNcZnRuYmpcdWMxXGRlZm Fef4riv559hBHdc7vcAHBx NwY7aELvXMNtqYJmU687HV DjSEzvk2tee6GkZVHilDOu s7Z5XUQJwlhsvYf4zDaiY1 8tb7L5RwliH4taICGsLAlq FJVpWFmikIGbFOF5HOOfQB R9VRdvhtRimvR2CHqcfDCa AwY7CZa4z1udeBavAJVgZG I6r0xxNSywtnCtJB9gut4h lPk7h0cfnjSlIAPyPPDipU ZMKHSoA9UrhYrjWh5zxOq2 sNflJnxoQYI1Ndu2AN3etr 92afs3qEppKJGyjwnaEgH8 WEtzFYPnvqtvLEa4TAzjSI JnbDcyMFxtYXJncjcyMFxt YXJndDcyMFxtYXJnYjcyMF qrDXVwPDY8LOffs506SLW8 MDgpo9rtb8pisQRbTpo5QQ QoQlCzHjyhMImki5Whq5ym NNLjtc9bFHX4zJArtVfod7 G4eDTvIWVlyTYalkWcBNVv SiG8SMeoWE7nug30FIMpQS N1pp2vrHImvPqjmgFltNCc MWniS2FvEHRhz841RACxB6 WtSHBwt4P8axUxWlWfEAJy cCC0geH5COYoHXv4kENztx W3fqPviQSlV5yjuU11FuCw aNLiI8MniP75AmSzaNEbS4 WxyI58HnCamBNwQ5LwfH38 ZqBwuAUaYMObhBKsDu1bpS GpjRCao9AmhZXhJKajK49l s794BSZxxvCpO8tzkMMrdh xwbGFpblxmMFxmczIwXHFs XHBsYWluXGYwXGZzMjBccG ntzI6lOkDxOvZqIHOUBeSX vIXyv8VrP2blMO9atEJwww GmHFk0UANfkQ8aAl5utRQc aK6rNZMrVYkuZYCeDMJcBz PgeQHmOIzaIVF9kTPkBOIz DQXqDJRgRK29V9XgflNuJP ekGJVmZMQloH1hYX59vTUq ciBhbmQgIlxwbGFpblxmMF nequZeTZP7r5UzfhGaEiJr fcRoE65ts0olxASwf1Dka9 2gDIPpyx0tsU0jWDuygPGr opwxPTdramDhHR10L71lMZ sbR801EMGlZZigdFIjzqpe MFxmczIwICBwaWVjZXMgb2 SiaVrrx1PjCI7jPVR2lncz ZyAwLjMgeCAwLjIgeCAwLj FyD43kENezzWIaikrpSQlj kyZjQBSxPURtqSNlsJ9eee XqabLglRAopYZ2PQQgWG34 fFZhkXghYn3bzH63qL1bXX CrzVKmYJJfi68kcS6mATXj COSsNAU3ZKVmwRchdX6cTf PnDmKmEHLIEJ4pSBwXP7El XHBhcn0= MICROSCOPIC DESCRIPTION x0lurSItODYgzIBoDxQwON (test code = 3371) ItUVPbq2dnFYDhaZKiArWf MzNcZnRuYmpcdWMxXGRlZm Ohe6qvp073sTLfn8eoRERy KhT8pORoLTUusCDfM900f8 omh6oiuzVnmKH7PNSmWYJ9 VSuoyzMdwwG6MThyvZEqQv U5YOtydcUhRVwmamNnbyQg Ord9KTPxG699XLX3eAmtj4 snPIZ0VJUvPAZmQtPnGi7g mBMhL986NAJeKAFJHAGmeE m4OVYwscQtbpXwdLKCj665 N143z3wlICUrsuNfuQeQho agl7lqQ069JZKwmDNlimYf YwRnXZViiAQedSL6OMJvVN 0ivjwrPvAsZC6fgiklQcDp VD1ufpp1OkAhRR6qegunNg IyOSddGDFlvktvKSFoo2Dr yyfhGZ9fR5Arw9L7rT2sdW CvBIFdqZStQsClIFLmwz6d dQStVWqir0PmTUS0taE6xE XjfFLsPNHdVS85Ekuau8Tt KvemDIO9WYRyilBkv9Vxr1 vjIzCsihEwX7hbX5DgMBTv XYKzTGFfXeVxvsLjj9Trc6 UbtWKbhMv1g5ejTRBxALJw cAqjq2btRCG3GENgT6F1oN Ghe7emHWtxIBXddWP7earl JBfuYMAjsyC9opokRZwfTJ XfrKP3cjdmILcoKRGpXyE5 kzzaJSsgWFYvUMW6EXfzf1 42CAH5DLhwXznuQKzyBYNv bmNvbnRccGduZGVjXHBsYW luXHBsYWluXGYwXGZzMjRc wHhupUeinB5wEyFjNtXrTO juYM6wASAdW3xhvQRgCHKr SLTbY8niSjNldT1tiTfyPH cdjmDeYUYNEhLYIl3UVJci YXJ9 [facility] [id number] 16:12:00Surgical Pathology Report Case: [id number] Authorizing Provider: Sylvie George MD Collected: 01/17/2020 08:15 AM Ordering Location: [address] Received: 01/17/2020 01:50 PM Service Pathologist: [...] FOVEOLAR METAPLASIA Signing Pathologist Direct Phone Line: [phone] signed by Humaira Mendez MD on 01/18/2020 at 3:50 [id number]: upper endoscopy, biopsy and colonoscopy Pre and postop diagnosis: anemiaA. Duodenum; biopsyA. The specimen is received in formalin labeled with the patient's name, accession number and "duodenum" and consists of one garduno-pink mucosal-covered pieces of tissue measuring 0.3 x 0.2 x 0.1cm. The specimen is submitted entirely following filtration in a cassette A1. HS/plPERFORMEDBlood gas, [id number] 16:03:00 Test Item Value Reference Range Interpretation Comments pH, Arterial (test code = 2744-1) 7.42 7.35-7.45 pCO2, Arterial (test code = 36 35- 45 mmHg 2018-) pO2, Arterial (test code = 78 80- 90 mmHg L 2703-7) O2 Sat, Arterial (test code = 96.2 % 96-97 2708-6) HCO3, Arterial (test code = 23 mmol/L 21-29 1960-4) Base Excess, Arterial (test code -1.9 mmol/L -2-3 = 1925-7) Patient Temperature (test code = 36.1 C 8310-5) FIO2 (test code = 1819) 28 % Lab Interpretation (test code = Abnormal 40011-2) [facility] [id number] 16:03:00 Test Item Value Reference Range Interpretation [...] (BEAKER) (test code = 1819) 28.0 % [id number] 15:05:00 Test Item Value Reference Range Interpretation Comments Ceruloplasmin (test code 21 mg/dL 18-53 = 20190918) VALENTE (test code = VALENTE) Performing Lab *[facility] [employer] [facility], [address] [place] [phone] Jorje Jauregui MD, PhD [facility] HospitalCarb[facility] antigen 19-9 (CA 19-9)2020-01-19 12:51:00 Test Item Value Reference Range Interpretation Comments CA 19-9 32 U/mL <34 This test was (test code = performed using the 52094-4) Siemens Chemiluminescen t method.Values o btained from different assay methods cannot be used interchangeably .CA19-9 levels, regardl ess of value, should n ot be interpreted as absoluteevidenc e of the presence or abs ence of disease. VALENTE (test Performing Lab code = VALENTE) [facility] [employer] [facility] [address] [place] [address] Mark Encarnacion MD, PhD, AMINA [facility] HospitalPROTHROMBIN TIME/[id number] 11:28:00 Test Item Value Reference Range Interpretation [...] patients wiht mechanical heart valves.MM, U/S, BREAST, [id number] 09:52:00Referring: Dr. Rowdy Zhang for exam:->liver transplant [...] Brooks MDReport Verified Date/Time: 01/19/2020 09:52:28 Reading Location:[address] Mammo Reading Room US breast [id number] 09:52:00Interface, External Ris In - 01/19/2020 9:54 [...] MDReport Verified Date/Time: 01/19/2020 09:52:28 Reading Location: [address] Mammo Reading [facility], WITHOUT [id number] 08:09:00Referring: Dr. Rowdy Wileyesthesia:->NonePlease specify abdominal organs:->AdrenalFINAL [...] Verified Date/Time: 01/19/2020 08:09:04 Reading Location: [facility] Diagnostic Imaging Reading Room - [place] [id number] abdomen without IV contrast 2020-01-19 08:09:00Interface, [...] Verified Date/Time: 01/19/2020 08:09:04 Reading Location: [facility] Diagnostic Imaging Reading Room - [place] [address] Electronically signed by: JOHN CROCKER MD on 0 01/19/2020 08:09 [facility]uraCAL[facility], [id number] 07:59:00 Test Item Value Reference Range Interpretation [...] To Exercise midodrineConfirmed by fellow Bc Chávez ([id number]) on 01/18/2020 9:20:19 AMConfirmed by Shaq GARCIA MICHAEL([id number]) on 01/19/2020 7:03:55 [facility]uraCOMPREHENSIVE METABOLIC PANEL 2020-01-19 05:21:00 Test Item Value [...] S NOT APPLICABLE FOR DIALYSIS PATIEN TS. Sander Operator ID - LASpecimen moderately [id number] 05:04:00 Test Item Value Reference Range Interpretation Comments PHOSPHORUS (BEAKER) (test code = 3.3 mg/dL 2.3-4.7 604) Sander Operator ID - [id number] 05:04:00 Test Item Value Reference Range Interpretation Comments MAGNESIUM (BEAKER) (test code = 2.0 mg/dL 1.6-2.6 627) Sander Operator ID - LAHEPATIC FUNCTION [id number] 05:04:00 Test Item Value Reference Range Interpretation [...] (test code = 10 U/L 6-55 347) Sander Operator ID - LASpecimen moderately ictericB-TYPE NATRIURETIC FACTOR (BNP) 2020-01-19 04:59:00 Test Item Value Reference Range Interpretation Comments B-TYPE NATRIURETIC PEPTIDE 2455 pg/mL 0-100 H (BEAKER) (test code = 700) Sander Operator ID - EDWIN BCBC W/PLT COUNT & AUTO [id number] 04:46:00 Test Item Value Reference Range Interpretation [...] (BEAKER) (test code = 2801) U/S, RENAL, [id number] 01:26:00Referring: Dr. Rowdy Zhang for exam:->Re-examine L [...] Sneed MDReport Verified Date/Time: 01/19/202001:26:59 US renal [id number] 01:26:00Interface, External Ris In - 01/19/2020 1:29 [...] MRI. Signed: Maira Sneed MDReport Verified Date/Time: 01/19/2020 01:26:59 [facility]uraEosinophil [id number] 22:11:00 Test Item Value Reference Range Interpretation Comments Eosinophil Smear (test Rare EOS =less than No EOS seen A code = 17635-0) 5% WBCs seen are EOS Lab Interpretation (test Abnormal code = 24920-7) [facility] HospitalEOSINOPHIL SMEAR, [id number] 22:11:00 Test Item Value Reference Range Interpretation Comments EOSINOPHIL SMEAR, URINE Rare EOS =less than No EOS seen A (BEAKER) (test code = 5% WBCs seen are EOS 1851) SODIUM, RANDOM [id number] 22:04:00 Test Item Value Reference Range Interpretation Comments SODIUM URINE (BEAKER) (test code = < meq/L 243) Reference Range: No NormalsOperator ID - EDWIN BCreatinine, random urine 2020-01-18 22:02:00 Test Item Value Reference Range Interpretation Comments Creatinine, Ur 181.3 mg/dL (test code = 2161-8) VALENTE (test code = Reference Range: No VALENTE) NormalsOperator ID - EDWIN B [facility] HospitalProtein, random [id number] 22:02:00 Test Item Value Reference Range Interpretation Comments Protein, Urine (test code 45 mg/dL 0-14 H = 2888-6) VALENTE (test code = VALENTE) Sander Operator ID - EDWIN B Lab Interpretation (test Abnormal code = 31214-9) [facility] HospitalCREATININE, RANDOM [id number] 22:02:00 Test Item Value Reference Range Interpretation Comments CREATININE URINE (BEAKER) (test 181.3 mg/dL code = 375) Reference Range: No NormalsOperator ID - EDWIN BPROTEIN, RANDOM [id number] 22:02:00 Test Item Value Reference Range Interpretation Comments PROTEIN, URINE (BEAKER) (test code = 45 mg/dL 0-14 H 1569) Sander Operator ID - EDWIN BURINALYSIS W/ [id number] 22:02:00 Test Item Value Reference Range Interpretation [...] (test Urine, Sterile code = 2795) Collection Sander Operator ID - [auto]Sander Operator ID - techHepatitis B core antibody, [id number] 16:02:00 Test Item Value Reference Range Interpretation Comments Hep B Core Total Ab Nonreactive Nonreactive (test code = 78052-9) VALENTE (test code = VALENTE) Sander Operator ID - CHARO F Lab Interpretation (test Normal code = 47631-6) [facility] HospitalHEPATITIS B CORE ANTIBODY, [id number] 16:02:00 Test Item Value Reference Range Interpretation Comments HEPATITIS B CORE TOTAL ANTIBODY Nonreactive Nonreactive (BEAKER) (test code = 497) Sander Operator ID - CHARO FECG 12 [id number] 14:19:40Interface, External Ris In - 01/18/2020 2:19 PM CDTVentricular Rate 62 BPMAtrial Rate 62 BPMP-R Interval 138 msQRS Duration 86 msQ-T Interval 452 msQTC Calculation(Bazett) 458 msP [place] 59 degreesR [place] 32 degreesT [place] 56 degreesNormal sinus rhythmLow voltage QRSNonspecific ST [id number] JUN 2020 11:05Nonspecific T wave abnormality Nonspecific T wave abnormality, improved inQT has shortenedConfirmed by MD FARHAT, [facility] ([id number]) on 01/18/2020 2:19:38 [facility] Cytomegalovirus antibody, [id number] 13:49:00 Test Item Value Reference Range Interpretation Comments CYTOMEGALOVIRUS, IGG Positive Negative, A (test code = 3429) Equivocal VALENTE (test code = VALENTE) CMV IgG Result Interpretation: </= 0.8 Al Negative 0.9-1.0 Al Equivocal >/=1.1 Al Positive Lab Interpretation (test Abnormal code = 17662-2) [facility] HospitalEBV-VCA antibody, [id number] 13:49:00 Test Item Value Reference Range Interpretation Comments GABRIEL CHING VIRAL Positive Negative, A CAPSID ANTIGEN IGG (test Equivocal code = 3415) VALENTE (test code = VALENTE) Gabriel Ching Viral Capsid Antigen IgG Result Interpretation: </= 0.8 Al Negative 0.9-1.0 Al Equivocal >/= 1.1 Al Positive Lab Interpretation (test Abnormal code = 96696-2) [facility] HospitalEBV-VCA antibody, [id number] 13:49:00 Test Item Value Reference Range Interpretation Comments GABRIEL CHING VIRAL Negative Negative, CAPSID ANTIGEN IGM (test Equivocal code = 3418) VALENTE (test code = VALENTE) Gabriel Ching Viral Capsid Antigen IgM Result Interpretation: </= 0.8 Al Negative 0.9-1.0 Al Equivocal >/= 1.1 Al Positive Lab Interpretation (test Normal code = 24236-6) [facility] HospitalCytomegalovirus antibody, [id number] 13:49:00 Test Item Value Reference Range Interpretation Comments CMV IGM (test code = Negative Negative, 3437) Equivocal VALENTE (test code = VALENTE) CMV IgM Result Interpretation: </= 0.8 Al Negative 0.9-1.0 Al Equivocal >/= 1.1 Al Positive Lab Interpretation (test Normal code = 18647-1) [facility] HospitalCYTOMEGALOVIRUS ANTIBODY, [id number] 13:49:00 Test Item Value Reference Range Interpretation Comments CYTOMEGALOVIRUS, IGG (BEAKER) Positive Negative, Equivocal A (test code = 3429) CMV IgG Result Interpretation: </= 0.8 Al Negative 0.9-1.0 Al Equivocal >/=1.1 Al PositiveCYTOMEGALOVIRUS ANTIBODY, [id number] 13:49:00 Test Item Value Reference Range Interpretation Comments CYTOMEGALOVIRUS IGM ANTIBODY Negative Negative, Equivocal (BEAKER) (test code = 3437) CMV IgM Result Interpretation: </= 0.8 Al Negative 0.9-1.0 Al Equivocal >/= 1.1 Al PositiveEBV ANTIBODY, [id number] 13:49:00 Test Item Value Reference Range Interpretation [...] Negative 0.9-1.0 Al Equivocal >/= 1.1 Al [id number] 13:35:00 Test Item Value Reference Range Interpretation Comments T3, Total (test code = 3053-6) 51 ng/dL 48-159 Lab Interpretation (test code = Normal 63782-7) [facility] 13:35[facility]00 Test Item Value Reference Range Interpretation Comments T3 TOTAL (BEAKER) (test code = 656) 51 ng/dL 48-159 PET/CT, CARDIAC PERF REST AND OLKRFR2242-10-03 12:45:00Referring: Dr. Rowdy Zhang for exam:->pre op cardiac clearance for liver transplantFINAL REPORT PROCEDURE: MYOCARDIAL PERFUSION PET IMAGING (Rest/Stress)CPT CODE: 68423 INDICATION: Evaluation for liver transplant CARDIOVASCULAR PROFILE:Symptoms: [...] MDReport Verified Date/Time: 01/18/2020 12:45:40 Reading Location: [address] Reading Room [place] Myocardial Perfusion Pet/CT (Rest & Stress)2020-01-18 12:45:00Interface, External Ris In - 01/18/2020 12:47 PM CDTFINAL REPORT PROCEDURE: MYOCARDIAL PERFUSION PET IMAGING (Rest/Stress)CPT CODE: 64030 INDICATION: Evaluation for liver transplant CARDIOVASCULAR PROFILE:Symptoms: [...] MDReport Verified Date/Time: 01/18/2020 12:45:40 Reading Location: [address] Reading Room [facility] HEPATIC FUNCTION [id number] 10:29:00 Test Item Value Reference Range Interpretation [...] (test code = 9 U/L 6-55 347) Sander Operator ID - CHARO FSpecimen moderately ictericCBC W/PLT COUNT & AUTO [id number] 08:43:00 Test Item Value Reference Range Interpretation [...] CONCENTRATION Decreased (CELLAVISION)(BEAKER) (test code = 3438) Sander Operator ID - JohnOperator ID - Lizett OverholtUser comments: Slide comments: [id number] 07:29:00 Test Item Value Reference Range Interpretation Comments MAGNESIUM (BEAKER) (test code = 2.1 mg/dL 1.6-2.6 627) Sander Operator ID - CHARO FBASIC METABOLIC AIOLO2503-42-63 07:29:00 Test Item Value Reference Range Interpretation [...] S NOT APPLICABLE FOR DIALYSIS PATIEN TS. Sander Operator ID - CHARO FSpecimen moderately ictericAnti-Nuclear Antibody (REILLY) 2020-01-17 10:54:00 Test Item Value Reference Range Interpretation Comments REILLY (test code = 13876-9) Negative Negative VALENTE (test code = VALENTE) Test performed by IFA method.Test performed by IFA method. Lab Interpretation (test Normal code = 62473-8) [facility] HospitalANTI-NUCLEAR ANTIBODY (REILLY)2020-01-17 10:54:00 Test Item Value Reference Range Interpretation Comments ANTI-NUCLEAR ANTIBODY (REILLY) (BEAKER) Negative Negative (test code = 418) Test performed by IFA method.Test performed by IFA method.[id number] 10:49:00 Test Item Value Reference Range Interpretation Comments RPR (test code = 02327-3) Nonreactive Nonreactive Lab Interpretation (test code = Normal 04854-3) [facility] HospitalRPR2020-06-22 10:49:00 Test Item Value Reference Range Interpretation Comments RPR SCREEN (BEAKER) (test code = Nonreactive Nonreactive 420) CBC W/PLT COUNT & AUTO [id number] 10:00:00 Test Item Value Reference Range Interpretation [...] (BEAKER) (test 1+ few code = 481) FREDDIE CELLS (BEAKER) (test code = 1+ few 474) ARTIFACT (CELLAVISION)(BEAKER) Present (test code = 3432) PLATELET CONCENTRATION Decreased (CELLAVISION)(BEAKER) (test code = 3438) Sander Operator ID - [id number] ID - Alem Mars comments: Slide comments:BASIC METABOLIC [id number] 05:16:00 Test Item Value Reference Range Interpretation [...] S NOT APPLICABLE FOR DIALYSIS PATIEN TS. Sander Operator ID - PIDORIAN LSpecimen moderately vvduvuqYWBNQSUDB1319-15-49 05:15:00 Test Item Value Reference Range Interpretation Comments MAGNESIUM (BEAKER) (test code = 2.1 mg/dL 1.6-2.6 627) Sander Operator ID - MITCH LPROTHROMBIN TIME/TJU9426-11-82 04:50:00 Test Item Value Reference Range Interpretation [...] patients wiht mechanical heart valves.Vitamin B12 and Kxlqso7222-73-58 16:46:00 Test Item Value Reference Range Interpretation Comments Vitamin B12 (test code = 1107 pg/mL 213-816 H 2132-9) Folate (test code = 2284-8) 3.40 ng/mL >=7.00 L VALENTE (test code = VALENTE) Sander Operator ID - NTP Lab Interpretation (test Abnormal code = 45049-2) [facility] HospitalVITAMIN B12 AND [id number] 16:46:00 Test Item Value Reference Range Interpretation Comments VITAMIN B12 (BEAKER) (test code = 1107 pg/mL 213-816 H 774) FOLATE (BEAKER) (test code = 362) 3.40 ng/mL >=7.00 L Sander Operator ID - NTPLactate dehydrogenase (LDH)2020-01-16 12:57:00 Test Item Value Reference Range Interpretation Comments LDH (test code = 2532-0) 250 U/L 125-220 H VALENTE (test code = VALENTE) Sander Operator ID - TUAN C Lab Interpretation (test Abnormal code = 13021-6) [facility] HospitalLACTATE DEHYDROGENASE (LDH)2020-01-16 12:57:00 Test Item Value Reference Range Interpretation Comments LACTATE DEHYDROGENASE (BEAKER) (test 250 U/L 125-220 H code = 635) Sander Operator ID - TUAN CRETICULOCYTE [id number] 12:44:00 Test Item Value Reference Range Interpretation Comments RETICULOCYTE COUNT PCT (BEAKER) (test 5.0 % 0.5-1.7 H code = 575) Sander Operator ID - [facility] Antigen with HIV-1/2 Yvvjsiuy9394-24-30 12:17:00 Test Item Value Reference Range Interpretation Comments HIV-1 Antigen with HIV Nonreactive Nonreactive 1&2 Antibody (test code = 44143-6) VALENTE (test code = VALENTE) Sander Operator ID - TUAN C Lab Interpretation (test Normal code = 68517-9) [facility] HospitalHIV[facility] ANTIGEN WITH HIV-1/2 [id number] 12:17:00 Test Item Value Reference Range Interpretation Comments HIV-1 ANTIGEN WITH HIV 1\\T\\2 Nonreactive Nonreactive ANTIBODY (2) (BEAKER) (test code = 2586) Sander Operator ID - TUAN ABwohriitpkb0795-25-63 12:02:00 Test Item Value Reference Range Interpretation Comments Haptoglobin (test code = <8 14-258 L 4542-7) VALENTE (test code = VALENTE) Sander Operator ID - TUAN C Lab Interpretation (test Abnormal code = 71021-9) [facility] HospitalHAPTOGLOBIN2020-06-21 12:02:00 Test Item Value Reference Range Interpretation Comments HAPTOGLOBIN (BEAKER) (test code = < mg/dL 14-258 L 366) Sander Operator ID - TUAN CHemoglobin [id number] 09:01:00 Test Item Value Reference Range Interpretation Comments Hemoglobin A1C (test code = 4548-4) <3.8 4.3-6.1 L Lab Interpretation (test code = Abnormal 40744-7) [facility] HospitalHEMOGLOBIN [id number] 09:01:00 Test Item Value Reference Range Interpretation Comments HEMOGLOBIN A1C (BEAKER) (test code = < % 4.3-6.1 L 368) U/S, ABDOMINAL, WITH [id number] 07:32:00Referring: Dr. Rowdy Mccarthy Reason for exam:->liver [...] MDReport Verified Date/Time: 01/16/2020 07:32:01 Reading Location: [address] Transitional Reading Room US abdominal with jfrueqp4118-47-19 07:32:00Interface, External Ris In - 01/16/2020 7:34 [...] MDReport Verified Date/Time: 01/16/2020 07:32:01 Reading Location: [address] Transitional Reading [facility]ABOLIC [id number] 04:41:00 Test Item Value Reference Range Interpretation [...] S NOT APPLICABLE FOR DIALYSIS PATIEN TS. Sander Operator ID - PIAYA LSpecimen moderately gfrkfjkHLAVOIPIT5202-25-24 04:38:00 Test Item Value Reference Range Interpretation Comments MAGNESIUM (BEAKER) (test code = 2.3 mg/dL 1.6-2.6 627) Sander Operator ID - PIAYA LHEPATIC FUNCTION FINOD4349-05-21 04:38:00 Test Item Value Reference Range Interpretation [...] (test code = 9 U/L 6-55 347) Sander Operator ID - MITCH Jane moderately ictericPROTHROMBIN TIME/[id number] 04:36:00 Test Item Value Reference Range Interpretation [...] mechanical heart valves.CBC W/PLT COUNT & AUTO GEVBVTUZMPRW4398-03-03 04:29:00 Test Item Value Reference Range Interpretation [...] (BEAKER) (test code = 2801) Carotid doppler sjplvmbio6153-26-26 00:34:03Ejection [facility] ECHO HEARTLAB MKCKESSON CPACSRight Impression1. The [...] AM CDTPV LAB - Carotid Duplex Study [facility] Patient Name CICI CALDERON Date of Study 01/15/2020 ALYSE Age 64 Visit Number [id number] Gender Female Accession Number [id number] Date of 1955 [facility] Room Number 1515 Physician Plastic Finisher Herbert Lechuga Interpreting Chelsea Resendez T Physician [...] + + + - Additional Measurements:ICAPSV/CCAPSV 0.96.ICAEDV/CCAEDV 1.52.[facility] HospitalBlood typing, automated - - at seperate draw time from initial type and yvlgdc3859-57-16 20:34:00 Test Item Value Reference Range Interpretation Comments ABO/RH AUTOMATED (KIRK) (test A POSITIVE code = 2260) [facility]T42020-06-[facility] 18:08:00 Test Item Value Reference Range Interpretation Comments T4, Total (test code = 4.3 ug/dL 4.9-11.7 L 3026-2) VALENTE (test code = VALENTE) Sander Operator ID - NTP Lab Interpretation (test Abnormal code = 63275-1) [facility]T42020-[facility] 18:08:00 Test Item Value Reference Range Interpretation Comments T4 TOTAL (BEAKER) (test code = 895) 4.3 ug/dL 4.9-11.7 L Sander Operator ID - PAQDdrqnhlv2065-58-13 18:07:00 Test Item Value Reference Range Interpretation Comments Ferritin (test code = 489.86 ng/mL 5-275 H 2276-4) VALENTE (test code = VALENTE) Sander Operator ID - NTP Lab Interpretation (test Abnormal code = 69111-5) [facility] HospitalFERRITIN2020-06-20 18:07:00 Test Item Value Reference Range Interpretation Comments FERRITIN (KIRK) (test code = 489.86 ng/mL 5.00-275.00 H 361) Sander Operator ID - NTPCT, CHEST, WITHOUT [id number] 17:57:00Referring: Dr. Rowdy LopestFINAL REPORT CT of [...] [place] Verified Date/Time: 01/15/2020 17:57:54 Reading Location: [address] Ortho Consult Reading Room CT chest without IV nxujjtfp5043-17-63 17:57:00Interface, External Ris In - 01/15/2020 6:00 [...] MDReport Verified Date/Time: 01/15/2020 17:57:54 Reading Location: [facility] C013X Ortho Consult Reading Room [facility] 2020-01-15 17:27:00 Test Item Value Reference Range Interpretation Comments TSH (test code = 26022-8) 5.549 0.350- 4.940 uIU/mL H VALENTE (test code = VALENTE) Sander Operator ID - DB Lab Interpretation (test Abnormal code = 87466-8) [facility] HospitalVitamin D, 22-Ulpixzv6611-59-20 17:27:00 Test Item Value Reference Range Interpretation Comments Vitamin D 25-Hydroxy 6.2 ng/mL 6.6-49.9 L (test code = 2764) VALENTE (test code = VALENTE) Effective 05/07/2017: Reference Range ChangeNew: 6.6-49.9 ng/mL Previous: 13.0-47.8 ng/mL Recommended Vitamin D Target Range: 30.0-40.0 ng/mLOperator ID - DB Lab Interpretation (test Abnormal code = 90562-6) [facility] HospitalAlpha fetoprotein (AFP), tumor aekwnp9167-06-05 17:27:00 Test Item Value Reference Range Interpretation Comments Alpha-Fetoprotein (test code <2.0 <10.0 ng/mL = 1834-1) VALENTE (test code = VALENTE) Sander Operator ID - DB Lab Interpretation (test Normal code = 61621-2) [facility] HospitalVITAMIN D, 39-[id number] 17:27:00 Test Item Value Reference Range Interpretation Comments VITAMIN D 25-OH (BEAKER) (test code 6.2 ng/mL 6.6-49.9 L = 2764) Effective 05/07/2017: Reference Range ChangeNew: 6.6-49.9 ng/mL Previous: 13.0-47.8 ng/mLRecommended Vitamin D Target Range: 30.0-40.0 ng/mLOperator ID - [id number] 17:27:00 Test Item Value Reference Range Interpretation Comments THYROID STIMULATING HORMONE 5.549 uIU/mL 0.350-4.940 H (BEAKER) (test code = 772) Sander Operator ID - DBALPHA FETOPROTEIN (AFP), TUMOR [id number] 17:27:00 Test Item Value Reference Range Interpretation Comments ALPHA-FETOPROTEIN (BEAKER) (test code < ng/mL <10.0 = 1094) Sander Operator ID - DBHepatitis B surface rgnvfqq1096-41-31 17:25:00 Test Item Value Reference Range Interpretation Comments HBsAg Screen (test code Nonreactive Nonreactive = 5195-3) VALENTE (test code = VALENTE) Specimen is considered negative for HBsAg. Lab Interpretation (test Normal code = 56970-7) [facility] HospitalHeuofl health - m[facility] el[facility] hospitaltis B surface zxnbhdop5930-86-16 17:25:00 Test Item Value Reference Range Interpretation Comments Hep B S Ab (test code = 25.0 <8.0 mIU/mL H 79071-5) VALENTE (test code = VALENTE) Sander Operator ID - DB Lab Interpretation (test Abnormal code = 17989-7) [facility] HospitalHepatitis C tjcxzogg1664-09-63 17:25:00 Test Item Value Reference Range Interpretation Comments Hepatitis C Ab (test code = Nonreactive Nonreactive 44173-6) VALENTE (test code = VALENTE) Sander Operator ID - DB Lab Interpretation (test Normal code = 53391-3) [facility] HospitalHETHE MEDICAL CENTERTIS B SURFACE [id number] 17:25:00 Test Item Value Reference Range Interpretation Comments HEPATITIS B SURFACE ANTIGEN (2) Nonreactive Nonreactive (BEAKER) (test code = 2585) Specimen is considered negative for HBsAg.HEPATITIS B SURFACE [id number] 17:25:00 Test Item Value Reference Range Interpretation Comments HEPATITIS B SURFACE ANTIBODY 25.0 mIU/mL <8.0 H (BEAKER) (test code = 647) Sander Operator ID - DBHEPATITIS C [id number] 17:25:00 Test Item Value Reference Range Interpretation Comments HEPATITIS C ANTIBODY (BEAKER) Nonreactive Nonreactive (test code = 367) Sander Operator ID - DBCarcinoembryonic Antigen (CEA)2020-01-15 17:23:00 Test Item Value Reference Range Interpretation Comments CEA, SERUM (test code = 7.9 ng/mL 0-5 H 2038-) VALENTE (test code = VALENTE) Sander Operator ID - DB Lab Interpretation (test Abnormal code = 23796-4) [facility] HospitalHepatitis B core antibody, [id number] 17:23:00 Test Item Value Reference Range Interpretation Comments Hep B C IgM (test code = Nonreactive Nonreactive 85270-0) VALENTE (test code = VALENTE) Sander Operator ID - DB Lab Interpretation (test Normal code = 64778-8) [facility] HospitalHepatitis A antibody, [id number] 17:23:00 Test Item Value Reference Range Interpretation Comments Hep A IgM (test code = Nonreactive Nonreactive 99538-5) VALENTE (test code = VALENTE) Sander Operator ID - DB Lab Interpretation (test Normal code = 96309-1) [facility] HospitalCARCINOEMBRYONIC ANTIGEN (CEA)2020-01-15 17:23:00 Test Item Value Reference Range Interpretation Comments CARCINOEMBRYONIC ANTIGEN (BEAKER) 7.9 ng/mL 0.0-5.0 H (test code = 685) Sander Operator ID - DBHEPATITIS B CORE ANTIBODY, [id number] 17:23:00 Test Item Value Reference Range Interpretation Comments HEPATITIS B CORE IGM ANTIBODY Nonreactive Nonreactive (BEAKER) (test code = 645) Sander Operator ID - DBHEPATITIS A ANTIBODY, [id number] 17:23:00 Test Item Value Reference Range Interpretation Comments HEPATITIS A IGM ANTIBODY (BEAKER) Nonreactive Nonreactive (test code = 498) Sander Operator ID - DBRAD, MANDIBLE, MIN 4 [id number] 17:22:00Referring: Dr. Rowdy Zhang for exam:->liver transplant [...] Alvarado Verified Date/Time: 01/15/2020 17:22:12 Reading Location: [address] Transitional Reading Room XR mandible min 4 utwsp4566-31-34 17:22:00Interface, External Ris In - 01/15/2020 5:24 [...] Alvarado Verified Date/Time: 01/15/2020 17:22:12 Reading Location: [facility] C0[facility] Transitional Reading [facility] CenterRAD, [facility]ST, 2 [id number] 17:16:00Referring: Dr. Rowdy Zhang for exam:->liver transplant [...] of chronic interstitial lung disease. Signed: Albaro Alvaradoort Verified Date/Time: 01/15/2020 17:16:49 Reading Location: [facility] C013 Transitional Reading Room XR chest 2 [id number] 17:16:00Interface, External Ris In - 01/15/2020 5:19 [...] Alvarado Verified Date/Time: 01/15/2020 17:16:49 Reading Location: [facility] C013 Transitional Reading Room [facility] 2D Echo W/Doppler(CW/PW/Color)2020-01-15 17:15:41Ejection [facility]SST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 Sander Operator ID - NTPSpecimen moderately ojempytNqpernwppt8082-17-83 17:03:00 Test Item Value Reference Range Interpretation Comments Fibrinogen (test code = 3255-7) 114 mg/dl 225-434 L Lab Interpretation (test code = Abnormal 68238-2) [facility] HospitalFIBRINOGEN2020-06-20 17:03:00 Test Item Value Reference Range Interpretation Comments FIBRINOGEN LEVEL (BEAKER) (test 114 mg/dl 225-434 L code = 658) Drcowoybvst3804-05-55 17:00:00 Test Item Value Reference Range Interpretation Comments Transferrin (test code = 102 mg/dL 174-382 L 3034-6) VALENTE (test code = VALENTE) Sander Operator ID - DBSpecimen moderately icteric Lab Interpretation (test Abnormal code = 70635-9) [facility] HospitalIron, TIBC, % sat. (without ferritin)2020-01-15 17:00:00 Test Item Value Reference Range Interpretation Comments Iron (test code = 2498-4) 144.0 ug/dL 40-160 TIBC (test code = 2500-7) 129 ug/dL 250-450 L Iron % Saturation (test code 112 % 20-55 H = 2502-3) VALENTE (test code = VALENTE) Sander Operator ID - DB Lab Interpretation (test Abnormal code = 90213-6) [facility] HospitalTRANSFERRIN2020-06-20 17:00:00 Test Item Value Reference Range Interpretation Comments TRANSFERRIN (BEAKER) (test code = 102 mg/dL 174-382 L 541) Sander Operator ID - DBSpecimen moderately ictericIRON, TIBC, % SAT. (WITHOUT FERRITIN) 2020-01-15 17:00:00 Test Item Value Reference Range Interpretation Comments IRON (BEAKER) (test code = 547) 144.0 ug/dL 40.0-160.0 TOTAL IRON BINDING CAPACITY 129 ug/dL 250-450 L (BEAKER) (test code = 769) IRON % SATURATION (2) (BEAKER) 112 % 20-55 H (test code = 2590) Sander Operator ID - LDYtirs-6-qgzxjyegubl7686-06-20 16:59:00 Test Item Value Reference Range Interpretation Comments A-1 Antitrypsin (test code = 121.20 mg/dL 90-200 1825-9) VALENTE (test code = VALENTE) Sander Operator ID - DB Lab Interpretation (test Normal code = 26060-0) [facility] HospitalBILIRUBIN, [id number] 16:59:00 Test Item Value Reference Range Interpretation Comments BILIRUBIN DIRECT 1.6 mg/dL 0.1-0.5 H Specimen sl ightly (BEAKER) (test code = hemoly zed 706) Sander Operator ID - MMNEIGFC-3-NNGPBCQXOSZ9757-06-20 16:59:00 Test Item Value Reference Range Interpretation Comments ALPHA-1 ANTITRYPSIN (BEAKER) 121.20 mg/dL 90.00-200.00 (test code = 502) Sander Operator ID - QXAvforqw3917-63-11 16:58:00 Test Item Value Reference Range Interpretation Comments Ethanol Lvl (test code = <10 <=10 mg/dL 5643-2) VALENTE (test code = VALENTE) Sander Operator ID - DB Lab Interpretation (test Normal code = 96828-1) [facility] HospitalaPTT2020-06-20 16:58:00 Test Item Value Reference Range Interpretation Comments PTT (test code = 53196-8) 36.8 22.5- 36.0 seconds H Lab Interpretation (test code = Abnormal 23909-3) [facility] HospitalAPTT2020-06-20 16:58:00 Test Item Value Reference Range Interpretation Comments PARTIAL THROMBOPLASTIN TIME 36.8 seconds 22.5-36.0 H (BEAKER) (test code = 760) [id number] 16:58:00 Test Item Value Reference Range Interpretation Comments ETHANOL (BEAKER) (test code = 400) < mg/dL <=10 Sander Operator ID - DBPROTHROMBIN TIME/[id number] 16:57:00 Test Item Value Reference Range Interpretation [...] is2.5-3.5 for patients wiht mechanical heart valves.CALCIUM, [id number] 16:45:00 Test Item Value Reference Range Interpretation Comments CALCIUM IONIZED (BEAKER) (test 1.08 mmol/L 1.12-1.27 L code = 698) PH, BLOOD (BEAKER) (test code = 7.38 1810) CREATININE, RANDOM [id number] 13:46:00 Test Item Value Reference Range Interpretation Comments CREATININE URINE (BEAKER) (test 280.7 mg/dL code = 375) Reference Range: No NormalsOperator ID - NTPSODIUM, RANDOM [id number] 13:46:00 Test Item Value Reference Range Interpretation Comments SODIUM URINE (BEAKER) (test code = < meq/L 243) Reference Range: No NormalsOperator ID - NTPHepatitis panel, [id number] 13:05:00 Test Item Value Reference Range Interpretation Comments Hep A IgM (test code = Nonreactive Nonreactive 39008-0) Hep B C IgM (test code = Nonreactive Nonreactive 65064-6) Hepatitis C Ab (test code = Nonreactive Nonreactive 30689-5) HBsAg Screen (test code = Nonreactive Nonreactive 5195-3) VALENTE (test code = VALENTE) Sander Operator ID - NTP Lab Interpretation (test Normal code = 48847-1) [facility] HospitalHEPATITIS PANEL, [id number] 13:05:00 Test Item Value Reference Range Interpretation Comments HEPATITIS A IGM ANTIBODY (BEAKER) Nonreactive Nonreactive (test code = 498) HEPATITIS B CORE IGM ANTIBODY Nonreactive Nonreactive (BEAKER) (test code = 645) HEPATITIS C ANTIBODY (BEAKER) Nonreactive Nonreactive (test code = 367) HEPATITIS B SURFACE ANTIGEN (2) Nonreactive Nonreactive (BEAKER) (test code = 2585) Sander Operator ID - NTPLipid ygizk6822-74-39 11:51:00 Test Item Value Reference Range Interpretation Comments Triglycerides (test 86 mg/dL code = 2571-8) Cholesterol (test code 101 mg/dL = 2093-3) HDL (test code = 12 mg/dL 2085-9) LDL Calculated (test 72 mg/dL code = 23002-5) VALENTE (test code = VALENTE) Triglyceride Reference Range: Low Risk <150 Borderline 150-199 High Risk 200-499 Very High Risk >=500 Cholesterol Reference Range: Low Risk <200 Borderline 200-239 High Risk >240 HDL Cholesterol Reference Range: Low Risk >=60 High Risk <40 LDL Cholesterol Reference Range: Optimal <100 Near Optimal 100-129 Borderline 130-159 High 160-189 Very High >=190 Sander Operator ID - NTPSpecimen moderately icteric [facility] HospitalGamma Glutamyl Transferase (GGT)2020-01-15 11:51:00 Test Item Value Reference Range Interpretation Comments GGT (test code = 2324-2) 15 U/L 9-64 VALENTE (test code = VALENTE) Sander Operator ID - NTPSpecimen moderately icteric Lab Interpretation (test Normal code = 03431-3) [facility] HospitalUric [id number] 11:51:00 Test Item Value Reference Range Interpretation Comments Uric Acid (test code = 15.7 mg/dL 2.6-7.2 H 3084-1) VALENTE (test code = VALENTE) Sander Operator ID - NTPSpecimen moderately icteric Lab Interpretation (test Abnormal code = 97677-7) [facility] HospitalURIC [id number] 11:51:00 Test Item Value Reference Range Interpretation Comments URIC ACID (BEAKER) (test code = 15.7 mg/dL 2.6-7.2 H 773) Sander Operator ID - NTPSpecimen moderately ictericLIPID [id number] 11:51:00 Test Item Value Reference Range Interpretation [...] Borderline 130-159 High 160-189 Very High >=190 Sander Operator ID - NTPSpecimen moderately zvqwtxcDFRXDOMBGU0817-20-87 11:51:00 Test Item Value Reference Range Interpretation Comments PHOSPHORUS (BEAKER) (test code = 4.5 mg/dL 2.3-4.7 604) Sander Operator ID - NTPGAMMA GLUTAMYL TRANSFERASE (GGT)2020-01-15 11:51:00 Test Item Value Reference Range Interpretation Comments GAMMA GLUTAMYL TRANSFERASE (BEAKER) 15 U/L 9-64 (test code = 364) Sander Operator ID - NTPSpecimen moderately ictericCBC W/PLT COUNT & AUTO TFULHMMZQZUW3880-32-18 11:25:00 Test Item Value Reference Range Interpretation [...] CONCENTRATION Decreased (CELLAVISION)(BEAKER) (test code = 3438) Sander Operator ID - 6000Operator ID - Ana Laura James comments: Slide comments: [id number] 10:20:00 Test Item Value Reference Range Interpretation Comments MAGNESIUM (BEAKER) (test code = 2.2 mg/dL 1.6-2.6 627) Sander Operator ID - MCEKsgwgnx0039-93-81 08:57:00 Test Item Value Reference Range Interpretation Comments Ammonia (test code = 19 18- 72 mol/L 83093-3) VALENTE (test code = VALENTE) Sander Operator ID - NTP Lab Interpretation (test Normal code = 56459-8) [facility]:57[facility]00 Test Item Value Reference Range Interpretation Comments AMMONIA (BEAKER) (test code = 348) 19 mol/L 18-72 Sander Operator ID - NTPHEPATIC FUNCTION [id number] 05:21:00 Test Item Value Reference Range Interpretation [...] (test code = 12 U/L 6-55 347) Sander Operator ID - DALTON MSpecimen moderately ictericBASIC METABOLIC [id number] 05:15:00 Test Item Value Reference Range Interpretation [...] S NOT APPLICABLE FOR DIALYSIS PATIEN TS. Sander Operator ID - DALTON MSpecimen moderately ictericPROTHROMBIN TIME/[id number] 04:37:00 Test Item Value Reference Range Interpretation Comments PROTIME (KIRK) (test code = 19.8 seconds 11.9-14.2 H 759) INR (BEREBECCA) (test code = 370) 1.7 <=5.9 Effective [...] Detected Not Detected, (test code = Negative 94480-3) SARS-COV-2 [facility] PERFORMING LAB (test code = 77389-0) VALENTE (test code = Negative results do [...] of the Act. Fact Sheet for Healthcare Providers:https://www.[employer]/Documents/Xper t%20Xpress%20SARS%20CoV- 2/Fact%20Sheets/302-3802 %80IYTL-ICW-8%20HEALTHCA RE%20PROVIDERS%20FACT%20 SHEET.pdf Fact Sheet for Healthcare Patients:https://www.[employer]/Documents/Xpert %20Xpress%20SARS%20CoV-2 /Fact%20Sheets/302-3801% 58XQXC-WFA-7%20PATIENT%2 0FACT%20SHEET.pdf Performing Laboratory:[facility] [place] [address] [place], [place] [address]ARS-COV2/RT-PCR ([facility])2020-01-15 01:48:00 Test Item Value Reference Range Interpretation Comments SARS-COV2/RT-PCR (test Not Detected Not Detected, Negative code = 3987432) SARS-COV-2 PERFORMING LAB [facility] (test code = 4657563) Negative results do not preclude SARS-CoV-2 infection [...] of the Act.Fact Sheet for Healthcare Pro viders:https://www.[employer]/Documents/Xpert%20Xpress%20SARS%20CoV-2/Fact%20Sh eets/302-3802%49EALI-NLK-3%20HEALTHCARE%20PROVIDERS%20FACT%20SHEET.pdfFact Sheet for Healthcare Patients:https://www.[employer].Lorena Gaxiola/Documents/Xpert%20Xpress%20SARS%20CoV-2/Fact%20Sheets/302-3801%20SARS-COV -2%20PATIENT%20FACT%20SHEET.pdfPerforming Laboratory:[place] [address], [place] [address]IDKUJ METABOLIC [id number] 22:40:00 Test Item Value Reference Range Interpretation [...] S NOT APPLICABLE FOR DIALYSIS PATIEN TS. Sander Operator ID - DBSpecimen moderately ictericHEPATIC FUNCTION [id number] 22:39:00 Test Item Value Reference Range Interpretation [...] Specimen slightly (test code = 347) hemolyzed Sander Operator ID - DBSpecimen moderately ictericPROTHROMBIN TIME/[id number] 22:28:00 Test Item Value Reference Range Interpretation [...] mechanical heart valves.CBC W/PLT COUNT & AUTO [id number] 22:22:00 Test Item Value Reference Range Interpretation [...] code = 2801) ALPHA FETOPROTEIN (AFP), TUMOR [id number] 18:31:00 Test Item Value Reference Range Interpretation Comments ALPHA-FETOPROTEIN (BEAKER) (test code < ng/mL <10.0 = 1094) Sander Operator ID - DBBASIC METABOLIC [id number] 15:23:00 Test Item Value Reference Range Interpretation [...] S NOT APPLICABLE FOR DIALYSIS PATIEN TS. Sander Operator ID - BSPlease sent STATSpecimen moderately ictericHEPATIC FUNCTION [id number] 15:18:00 Test Item Value Reference Range Interpretation [...] (test code = 17 U/L 6-55 347) Sander Operator ID - BSPlease sent STATSpecimen moderately ictericPROTHROMBIN [...] for patients wiht mechanical heart valves.Please sent [facility] W/PLT [facility] & AUTO [id number] 15:05:00 Test Item Value Reference Range Interpretation [...] (BEAKER) (test code = 2801) CT, ABDOMEN, [id number] 15:58:00Referring: Dr. Reno SweattFINAL REPORT CT OF [...] MDReport Verified Date/Time: 05/02/2017 15:58:35 Reading Location: [facility] C013Y CT Body Reading Room CBC W/PLT COUNT & AUTO [id number] 17:30:00 Test Item Value Reference Range Interpretation [...] code = 417) 0.00ALPHA FETOPROTEIN (AFP), TUMOR [id number] 16:31:00 Test Item Value Reference Range Interpretation Comments ALPHA-FETOPROTEIN (BEAKER) (test 3.3 ng/mL <10.0 code = 1094) Effective 06/14/2014: Reference Range ChangeNew: <10.0 Previous: 0.0-8.0 BASIC METABOLIC [id number] 16:13:00 Test Item Value Reference Range Interpretation [...] FOR DIALYSIS PATIEN TS. Specimen slightly ictericLIPID [id number] 16:13:00 Test Item Value Reference Range Interpretation [...] Very High >=190 Specimen slightly ictericHEPATIC FUNCTION [id number] 16:13:00 Test Item Value Reference Range Interpretation [...] (test code = 364) Specimen slightly ictericPROTHROMBIN [id number] 16:13:00 Test Item Value Reference Range Interpretation [...]
--- OUTSIDE RECORDS SUMMARY | 2020-03-20 09:38 | XMS REPORT ---
[...] Status Dosage System Date Date Gabapentin ND 50535944616 100 MG Orally January Active 1 c apsule Once a day 2019 Lactulose ND 30383042566 20 GM/30ML Active 15 ml Orally Once a day Cimetidine ND 92624541573 200 MG Orally Active 1 t ablet as Once a day needed Albuterol ND 76547755717 108 (90 Base) October Active 1 pu ff as Sulfate HFA MCG/ACT 09, needed Inhalation 2019 every 6 hrs Calcitriol ND 25471507715 0.5 MCG Orally Active 1 capsule Once a day Triamcinolone ND 18395364226 0.1 % January Active 1 appl ication Acetonide Externally , Twice a day 2019 Results No Known Results Immunizations Vaccine Administration Date Hepatitis A (adult) February 21, 2020 Hepatitis B (adult) February 21, 2020 Summary Purpose eClinicalWorks Submission
--- OUTSIDE RECORDS SUMMARY | 2020-03-20 09:39 | XMS REPORT ---
[...] End Status Dosage System Date Date Xixa [facility] 79975733985 550 MG Orally Active 1 tabl et Twice a day Folic Acid ND 41390528644 1 MG Orally Active 1 tab let Once a day Spironolactone [facility] 50374856975 25 MG Orally Active 1 tablet Vitamin D2 [facility] 94723283295 10 MCG (400 Active 2 tab lets UNIT) Orally Once a day Albuterol Sulfate [facility] 66937885859 108 (90 Base) October Acti ve 1 puff as HFA MCG/ACT , needed Inhalation 2019 every 6 hrs Calcitriol [facility] 13569962955 0.5 MCG Orally Active 1 capsule Once a day MagOx 400 [facility] 29184856828 400 (241.3 Mg) Active 1 t ablet MG Orally Once with food a day Lactulose [facility] 84488404378 20 GM/30ML Active 15 ml Orally Once a day Tramadol HCl [facility] 70604287159 50 MG Orally Active 1 tablet as Once a day needed Midodrine HCl [facility] 61025741506 2.5 MG Orally Active 1 tablet Three times a day Cimetidine [facility] 64553083163 200 MG Orally Active 1 t ablet as Once a day needed Pantoprazole [facility] [address]-43 40 MG Orally Active 1 packet Sodium Once a day mixed with apple juice or applesauce Results No Known Results Summary Purpose eClinicalWorks Submission
[2020-03-20 10:06] VITALS: BMI 31.7
--- NOTE | 2020-03-20 11:34 | RAD REPORT ---
EXAM DESCRIPTION: US - Paracentesis Proc Guidance - 03/20/2020 11:09 am CLINICAL HISTORY: ASCITES Ascites COMPARISON: Paracentesis Proc Guidance dated 03/06/2020 FINDINGS: Informed consent was obtained and time-out was performed. Patient's abdomen was prepped and draped in the usual sterile fashion. 1% lidocaine was used for loca l anesthetic purposes. A small skin incision was made along the right abdomen. A paracentesis catheter was guided into the p eroneal cavity under sonographic guidance. A small amount of fluid was sent for requested lab studies. A large volume paracentesis was performed healing 7.5 liters. The patient tolerated the procedure well. Patient was administered IV albumin per protocol following the procedure. IMPRESSION: Successful ultrasound-guided paracentesis.
[2020-03-20 13:46] VITALS: O2SAT 100
[2020-03-20 13:49] VITALS: BP 98/46; TEMP 97.6
[2020-03-20 15:31] LABS: Appearance SLT. TURBID (CLEAR); Body Fluid Source PLEURAL; Color of fluid Yellow (COLORLESS)
[2020-03-20 15:32] LABS: Body Fluid WBC 85 /mm^3
== END ==
LOC: DS 09:20
PROVIDERS: ATTEND Internal Medicine Gastroenterology
DX: R18.8 Other ascites (principal); K70.0 Alcoholic fatty liver; K74.69 Other cirrhosis of liver; R17 Unspecified jaundice; R14.0 Abdominal distension (gaseous)
CPT/HCPCS: 87070; 36415; 89050; 96365; 49083; P9047

== ENCOUNTER 2020-03-31 08:37 | Day surgery (SDC) | payer OTHER ==
--- OUTSIDE RECORDS SUMMARY | 2020-03-31 08:41 | XMS REPORT | Clinical Summary ---
:1955 Author Organization [facility] [employer] Address [address] [place] [address] Care Team Providers Name Role Phone Nahun [...] INFLUENZA VACCINE 04/27/2020 Results Not on fileafter 03/31/2019 Advance Directives For more information, please contact: [phone] Type Date Recorded Patient Executive Director Sheltered Workshop Explanati on Advance Directives, Living Will and Medical Power of Instructor Technical Training
--- OUTSIDE RECORDS SUMMARY | 2020-03-31 08:43 | XMS REPORT | Clinical Summary ---
:1955 Author Organization [facility] Address [address] [place] [address] Care Team Providers Name Role Phone Zeinab [...] Encounters Date Type Specialty Care Team Description 03/20/2020 Documentation Transplant Hepatology Brigitte Hamilton 03/14/2020 Documentation Transplant Hepatology Cary Talley RN [...] R, RN 02/16/2020 Documentation Transplant Hepatology [place], [facility] 02/16/2020 Documentation Transplant Hepatology [place], [facility] 02/16/2020 Documentation Central Scheduling [place], [facility] 02/16/2020 Orders Only Transplant Hepatology Cary Talley Cirr hosis of liver without ascites, unspecified hepatic cirrhosis type (HCC) (Primary Dx); R, RN Pre-transplant evaluation for liver transplant 02/15/2020 Follow-Up Transplant Hepatology Sia Riley Cirrh osis of liver without ascites, unspecified hepatic cirrhosis type (HCC) (Primary Dx); MD Alex Acute liver failure without hepatic coma ; Kristofer Cross defic iencchester; MD Nhi Pre-transplant evaluation for liver transplant; Acute and subac [place] hepatic failure with coma (HCC) 02/15/2020 Telephone Transplant Hepatology Cary Talley meld update R, RN 02/15/2020 Telephone Transplant Hepatology Cary Talley othe r R, RN 02/15/2020 Orders Only Transplant Hepatology Areli Hein, FRANCISCA 02/14/2020 Documentation Transplant Hepatology [place], [facility] 02/11/2020 Telephone Hepatology Dai Rios MA (confirm) [...] Orders Only Hepatology Larry, Line Hepatic Kastrup, SPANISH LINGUIST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) 02/03/2020 Documentation Hepatology Kristofer Cross MD 02/02/2020 Telephone Transplant Hepatology Cary Talley R, RN 02/01/2020 UNOS Charge Visit Transplant Hepatology Rito Saini irrhosis of liver Ildefonso Spencer MD without ascites , unspecified hep atic cirrhosis type (HCC) 02/01/2020 Documentation Transplant Hepatology Brigitte Hamilton 02/01/2020 Abstract Transplant Hepatology Cary Talley R, RN 02/01/2020 Telephone Hepatology PRIOR ITZEL Craven (XIF AXAN) [facility] 02/01/2020 Orders Only Transplant Hepatology Cary Talley Pre- transplant evaluation for liver transplant (Primary Dx); R, RN 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, unspecified hepatic cirrhosis type (HCC) 02/01/2020 Telephone Transplant Hepatology Cary Talley Labs Only R, RN 01/31/2020 Documentation Intensive Care Al-Atwood, Ruaa Conrad 01/31/2020 Documentation Transplant Hepatology Cary Talley R, RN 01/31/2020 Telephone Transplant Hepatology Cary Talley othe r R RN 01/31/2020 Telephone Transplant Hepatology Cary Talley endo crine clearance R, RN 01/21/2020 Abstract Transplant Hepatology Law Poonam R 01/20/2020 Documentation Transplant Hepatology Law Poonam R 01/20/2020 Abstract Transplant Hepatology Inge Salazar MA 01/19/2020 Surgery Nallely, R & L CATH / MD Brian CORONARY ANGIOS (+/- LV) 01/18/2020 Outside Orders Radiology Mitzy English, SPANISH LINGUIST 01/17/2020 Anesthesia Event Gastroenterology ViniciusTigist CRNA 01/17/2020 Surgery Gastroenterology Sylvie George, UPPER ENDOSCOPY,BIOPS Y 01/15/2020 Documentation Transplant Hepatology Cheryle Fischer Cirwest hosis of liver without ascites, unspecified hepatic cirrhosis type (HCC); P, RN Pre-transplant evaluation for liver transplant 01/14/2020 Hospital Encounter General Internal Athreya, Cirrh osis of liver without ascites, unspecified hepatic cirrhosis type (HCC); - Medicine Khannayahaira Other ascites; 01/26/2020 Radha, Portal hyperten lamberto (HCC); Secondary esophageal varices without ble eding (HCC); Juana, Acute renal florecita lure, unspecified acute renal failure type (HCC); MD Leena Acute liver failure without hepatic coma ; Kaylin Michelle MD Obesity (BMI 35.0-39.9 without comorbidi ty); Gregoria, Screening for m alignant neoplasm; Yashash D Immunity status testing; Ramone Hepatorenal syn drome (HCC); Graciela Randall, Hyponatremia; [...] Larry Obesity (BMI 35.0-39.9 without comorbidity); K[place], SPANISH LINGUIST Adrenal mass, l eft ; Screening for m alignant neoplasm; Elevated serum creatinine; Other ascites 12/31/2019 Telephone Hepatology Niraj, Dai Goncalves MA 12/21/2019 Documentation Hepatology Kadie Larry FNP 12/17/2019 Abstract Hepatology Ivanna Healy MA 12/16/2019 Abstract Hepatology Janna Aparicio RN 12/16/2019 Abstract Hepatology Janna Aparicio RN 12/16/2019 Abstract Hepatology Janna Aparicio RN 12/15/2019 Audio - Hepatology Kadie Larry Portal hypert ension (Primary Dx); Telemedicine Yvette, SPANISH LINGUIST 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); Obesity (BMI 35 .0-39.9 without comorbidity); Adrenal mass, l eft ; Screening for m alignant neoplasm 12/14/2019 Telephone Hepatology Glynn, Dai De La Fuente MA after 03/31/2019 Family History Medical History Relation Name Comments [...] Follow-Up Transplant Hepatology Whitney Cross MD [address] [address] [phone] 04/11/2020 Appointment Kristofer Cross MD [address] [address] 0 [phone] Health Maintenance Due Date Last Done Comments [...] procedure are i n the results section. [id number] AP Routine 01/19/2020 9:43 PHENOTYP PM CDT [...] 452 ms QTC Calculation(Bazett) 458 ms P [place] 59 degrees R [place] 32 degrees T [place] 56 degrees Normal sinus rhythm Normal ECG [...] procedure are i n the results section. [id number]\\, Routine 01/15/2020 4:17 Re sults for this [...] are i n the results section. SARS-COV2/RT-PCR ([facility] STAT 01/14/2020 7:28 R esults for [...] results hepatic cirrhosis section. type (HCC) after 03/31/2019 Results Prothrombin time/INR (03/10/2020 8:03 AM CDT)Only the most recent of18 results within the time period is included. INR 1.3 (H) LICO Comment: Reference Range 0.9-1.1 Moderate-intensity Warfarin Therapy 2.0-3.0 Higher-intensity Warfarin Therapy 3.0-4.0 PT 13.3 (H) 9.0 - 11.5 sec [facility] Comment: For more information on this test, go to: http://education.[employer].Checkmarx/faq/ZHB002 Specimen Blood Narrative Performed At FASTING:YES [facility] FASTING: YES Resulting Agency Comment Performing Organization Information: Site ID: [id number] Name: [facility] Address: [address] [place] [address] [place] [address] Director: Jj Carrasco Performing Organization Address City/State/Zipcode Phone Number [facility] [address] [place] [address] [facility] CBC with platelet count + automated [...] Agency Comment Performing Organization Information: Site ID: [facility] Name: [facility] Address: [address] [place] [phone] Director: Jj Carrasco Performing Organization Address [facility] Phone Number [facility] [address] [place] [address] [facility] Bilirubin, direct (03/10/2020 8:03 AM CDT)Only [...] Agency Comment Performing Organization Information: Site ID: [facility] Name: [facility] Address: [address] [place] [phone] Director: Jj Carrasco Performing Organization Address [facility] Phone Number [facility] [address] [place] [address] [facility] Comprehensive metabolic panel (03/10/2020 8:03 AM [...] 13% higher for p eople identified as -Austrian. eGFR If NonAfricn Am 32 (L) > [...] Performing Organization Information: Site ID: [id number] Name: [facility] Address: [address] [place] [phone] Director: Jj Carrasco Performing Organization Address City/State/Zipcode Phone Number [facility] [address] [place] [address] [facility] Miscellaneous lab test (02/15/2020 12:29 PM CDT)Only the most recent of2 results within the time period is included. Scan Result [facility] Specimen Blood Narrative Performed At This result has an attachment that is no t available. Performing Organization Address City/State/Zipcode Phone Number [facility] [address] [place], [place] CBC with platelet count + automated diff (02/15/2020 12:29 PM CDT)Only the most recent of15 resultswithin the time period is included. WBC 2.5 (L) 3.5 - 10.5 K/L [facility] RBC 2.31 (L) 3.93 - 5.22 M/L [facility] Hemoglobin 8.8 (L) 11.2 - 15.7 GM/DL [facility] Hematocrit 28.0 (L) 34.1 - 44.9 % [facility] MCV 121.2 (H) 79.4 - 94.8 fL [facility] MCH 38.1 (H) 25.6 - 32.2 pg [facility] MCHC 31.4 (L) 32.2 - 35.5 GM/DL [facility] RDW 20.9 (H) 11.7 - 14.4 % [facility] Platelets 48 (L) 150 - 450 K/CU MM [facility] MPV 10.0 9.4 - 12.3 fL [facility] nRBC 0 0 - 0 /100 WBC [facility] % Neutros 62 % [facility] % Lymphs 24 % [facility] % Monos 10 % [facility] % Eos 4 % [facility] % Baso 1 % [facility] # Neutros 1.56 1.56 - 6.13 K/L [facility] # Lymphs 0.60 (L) 1.18 - 3.74 K/L [facility] # Monos 0.24 0.24 - 0.36 K/L [facility] # Eos 0.10 0.04 - 0.36 K/L [facility] # Baso 0.02 0.01 - 0.08 K/L [facility] Immature 0 0 - 1 % [facility] Granulocytes-Relative MEDICAL CE NTER Specimen Blood Performing Organization Address City/State/Zipcode Phone Number [facility] [address] [place] [address] CENTER Magnesium (02/15/2020 12:29 PM CDT)Only the most recent of13 resultswithin the time period is included. Magnesium 1.8 1.6 - 2.6 mg/dL [facility] Specimen Blood Narrative Performed At Supervisory It Specialist ID - LM [facility] Performing Organization Address City/State/Zipcode Phone Number [facility] [address] [place] [address] CENTER PLATELET ESTIMATION (02/08/2020 10:23 AM CDT) Platelet Estimate DECREASED (A) ADEQUATE [facility] Specimen Narrative Performed At FASTING:YES [facility] FASTING: YES Resulting Agency Comment Performing Organization Information: Site ID: [id number] Name: [facility] Address: [address] [place] [phone] Director: Jj Carrasco Performing Organization Address City/[facility]/Zipcode Phone Number [facility] [address] [place] [address] [facility] RHYTHM STRIP - SCAN (01/27/2020 10:00 [...] rmance characteristics have been determined by [facility] [employer] [place]. It has not been cleared or approved by FDA. This assay has been validated pursuant to the CLIA regulations and is used for clinical purposes. Normetanephrine 213 (H) < OR = 148 pg/mL [facility] Comment: INCORPORATED This test was developed and its analytical perfo rmance characteristics have been determined by [employer] [place]. It has not been cleared or approved [...] 2008. For additional information, please refer to http://education.R [employer] Group.Checkmarx/faq/MetFra ctFree (This link is being provided for informational/e ducational purposes only.) This test was developed and its analytical perfo rmance characteristics have been determined by [employer] [facility]. It has not been cleared or approved by FDA. This assay has been validated pursuant to the CLIA regulations and is used for clinical purposes. Specimen Blood Narrative Performed At Performing Lab [facility] [employer] [facility] [address] [address] [place] [address] I Shashank ADRIAN, PhD, AMINA Performing Organization Address City/[facility]/Zipcode Phone [place] [address] INCORPORATED [address] [facility] Calcium, Ionized (01/26/2020 3:50 AM CDT)Only the most recent of7 resultswithin the time period is included. Calcium, Ion 1.11 (L) 1.12 - 1.27 mmol/L [facility] pH, Blood 7.41 [facility] Specimen Blood Performing Organization Address City/[facility]/Zipcode Phone Number [facility] [address] [place] [address] CENTER Phosphorus (01/26/2020 3:50 AM CDT)Only the most recent of7 resultswithin the time period is included. Phosphorus 3.2 2.3 - 4.7 mg/dL [facility] Specimen Blood Narrative Performed At Supervisory It Specialist ID - BS [facility] Performing Organization Address City/[facility] Cent[facility] Phone Number [address] [address] [place] Hepatic function panel (01/26/2020 3:50 AM CDT)Only the most recent of13 resultswithin the time period is included. Protein, Total 5.7 (L) 6.0 - 8.3 gm/dL [facility] Albumin 3.4 (L) 3.5 - 5.0 g/dL [facility] Total Bilirubin 6.9 (H) 0.2 - 1.2 mg/dL [facility] Bilirubin, Direct 2.2 (H) 0.1 - 0.5 mg/dL [facility] Alkaline Phosphatase 58 40 - 150 U/L [facility] AST 36 (H) 5 - 34 U/L [facility] ALT 13 6 - 55 U/L [facility] Specimen Blood Narrative Performed At Supervisory It Specialist ID - BS [facility] Specimen moderately icteric Performing Organization Address City/[facility] Centercode Phone Number [place] [phone] [place] [address] CENTER Manual Differential (01/25/2020 3:47 AM CDT)Only the most recent of7 results within the time period is included. % Neutros 66 % [facility] % Lymphs 24 % [facility] % Monos 7 % [facility] % Eos 2 % [facility] % Metamyelo 1 (H) 0 - 0 % [facility] # Neutros 0.92 (L) 1.56 - 6.13 K/ul [facility] # Lymphs 0.34 (L) 1.18 - 3.74 K/ul [facility] # Monos 0.10 (L) 0.24 - 0.36 K/uL [facility] # Eos 0.03 (L) 0.04 - 0.36 K/uL [facility] # Metamyelo 0.01 (H) 0.00 - 0.00 K/uL [facility] Total Counted 100 [facility] Smudge Cells Present [facility] Giant Platelet Present [facility] Anisocytosis 2+ moderate [facility] Macrocytes 2+ moderate [facility] Poikilocytes 2+ moderate [facility] Holiday Cells 2+ moderate [facility] Artifact Present [facility] Platelet Conc Decreased [facility] Specimen Blood Narrative Performed At Supervisory It Specialist ID - [id number] [facility] Supervisory It Specialist ID - Maria Del Carmen Silvio User comments: Slide comments: Performing Organization Address City/State/Zipcode Phone Number [facility] [address] [place] [address] CENTER Basic Metabolic Panel (01/25/2020 3:47 AM CDT)Only the most recent of10 results within the time period is included. Sodium 140 136 - 145 meq/L [facility] Potassium 3.4 (L) 3.5 - 5.1 meq/L [facility] Chloride 105 98 - 107 meq/L [facility] CO2 25 22 - 29 meq/L [facility] BUN 31 (H) 7 - 21 mg/dL [facility] Creatinine 2.35 (H) 0.57 - 1.25 mg/dL [facility] Glucose 108 (H) 70 - 105 mg/dL [facility] Calcium 8.7 8.4 - 10.2 mg/dL [facility] EGFR 21Comment: ESTIMATED GFR IS mL/min/1.73 sq m [facility] NOT ACCURATE CREATININE ME DICAL CENTER CLEARANCE IN PREDICTING GLOMERULAR FILTRATION RATE. ESTIMATED GFR IS NOT APPLICABLE FOR DIALYSIS PATIENTS. Specimen Blood Narrative Performed At Supervisory It Specialist ID - PIAYA L [facility] Specimen moderately icteric Performing Organization Address City/State/Zipcode Phone Number [facility] [address] [place] [address] CENTER TRANSFUSION SERVICE REPORT - [...] CDT) Narrative Performed At Epifanio Giles, JUVENAL, CONTROL SYSTEMS SPECIALIST 2019 10:52 AM [facility] PFT CHARTING REPORT Infection Control/Hand Hygiene procedure s followed throughout the encounter with patient: Yes Patient Identification Method: Patient n celia verified on armband, and Medical record on armband, Is the order complete?: Yes Account ID#: [id number] Patient Name: Cici Calderon Birthdate: 1955 Age: [...] CDT) Narrative Performed At Epifanio Giles, JUVENAL, CONTROL SYSTEMS SPECIALIST 2019 10:52 AM [facility] PFT CHARTING REPORT Infection Control/Hand Hygiene procedure s followed throughout the encounter with patient: Yes Patient Identification Method: Patient n celia verified on armband, and Medical record on armband, Is the order complete?: Yes Account ID#: [id number] Patient Name: Cici Calderon Birthdate: 1955 Age: [...] CDT) Narrative Performed At Epifanio Giles RRT, CONTROL SYSTEMS SPECIALIST 2019 10:52 AM [facility] PFT CHARTING REPORT Infection Control/Hand Hygiene procedure s followed throughout the encounter with patient: Yes Patient Identification Method: Patient n celia verified on armband, and Medical record on armband, Is the order complete?: Yes Account ID#: [id number] Patient Name: Cici Calderon Birthdate: 1955 Age: [...] At Janina Meehan RRT, RCP 20192:39 PM [facility] PFT CHARTING REPORT Infection Control/Hand Hygiene procedure s followed throughout the encounter with patient: Yes Patient Identification Method: Patient n celia verified on armband, and Medical record on armband, Is the order complete?: Account ID#: [id number] Patient Name: Cici Calderon Birthdate: 1955 Age: [...] ABO A Pos [place] UNIT NUMBER [id number] [place] Status TX_TIMEINCHART [place] Blood Bank Product RED BLOOD CELLS [place] PRODUCT CODE [id number] [place] Specimen Other Performing Organization Address City/[facility] Centercode Phone Number [place] B-type Natriuretic Factor (BNP) (01/23/2020 4:32 AM CDT)Only the most recent of 2 resultswithin the time period is included. BNP 2,179 (H) 0 - 100 pg/mL [facility] Specimen Blood Narrative Performed At Supervisory It Specialist ID - PIAYA L [facility] Performing Organization Address [facility] Phone Number [facility]ICAL [address] [place] [address] CENTER Prepare Leuko-Red PLT (01/22/2020 11:54 PM CDT)Only the most recent of2 results within the time period is included. Unit ABO A Pos SAFETRACE TX UNIT NUMBER [id number] [place] Status WORK IN PROGRESS SAFETRACE [place] Blood Bank Product PLATELETS SAFETRACE [place] PRODUCT CODE [id number] SAFETRACE TX Unit ABO O Pos SAFETRACE TX UNIT NUMBER [id number] SAFETRACE TX Status TX_TIMEINCHART SAFETRACE TX Blood Bank Product PLATELETS SAFETRACE [place] PRODUCT CODE [id number] SAFETRACE [place] Specimen Blood Performing Organization Address [facility] Phone Number [place] Transfuse Leuko-Red RBC (01/22/2020 2:30 PM CDT)Only the most recent of4 resultswithin the time period is included.Cortisol (01/22/2020 8:23 AM CDT)Only the most recent of2 resultswithin the time period is included. Cortisol, Total 1.6 (L) 3.7 - 19.4 ug/dL [facility] Specimen Blood Narrative Performed At Supervisory It Specialist ID - PIAYA L [facility] Performing Organization Address [facility] Center[facility]i Phone Number [address] [address] CENTER ABORH, manual (01/22/2020 4:34 AM CDT) ABO Grouping [facility] Rh Factor [facility] Specimen Blood Performing Organization Address [facility] Centercode Phone Number [address] [address] Direct [facility]HG (RAMIREZ)/Direct Jewel (01/22/2020 4:34 AM CDT) Direct [facility]-IGG [facility]GATIVE [facility] Direct [facility]HG-C3B, C3D NEGATVIE [facility] Specimen Blood Performing Organization Address [facility] Centercode Phone Number [address] [address] Body fluid culture + gram stain (01/21/2020 4:54 PM CDT) Result No growth [facility] Gram Stain Result <1+ White blood cells seen [facility] Gram Stain Result No organisms seen [facility] Specimen Body Fluid Performing Organization Address [facility] Centercode Phone Number [address] [address] [place] Body fluid cell count with differential (01/21/2020 4:54 PM CDT) Appearance Hazy (A) Clear [facility] Color Cele (A) Colorless, Straw [facility] RBCs 4,000 (H) <=1 /cu mm [facility] Adjusted WBC Count 86 (H) <=5 /cu mm [facility] Lining Cells 1 <=1 /cu mm [facility] % Segs 7 % [facility] % Lymphs 83 % [facility] % Monos 10 % [facility] % Eos 0 % [facility] % Baso 0 % [facility] Container Body Fluid Sterile Vial [facility] Specimen Body Fluid Performing Organization Address City/State/Zipcode Phone Number [facility] [address] [place] [address] [facility] paracentesis (01/21/2020 4:40 PM CDT) Specimen Narrative Performed At FINAL REPORT Zannel Ultrasound guided paracentesis Clinical History:Ascites. Sedation: None. Visual Education Director: Christine Ward PA-C Supervising Physician: Natan Chisholm MD Cartridge Loading Operator:None. Estimated Blood Loss: < 1 mL. [...] anesthesia was achieved with lidocaine, a 5 [place] one-step catheter was advanced into the peritoneal cavity under ultrasound guidance. After completion of drainage, the cathet er was removed. There was no evidence of complication. Impression: Successful ultrasound guided paracentesi s. Signed: Natan Chisholm MD Report Verified Date/Time:01/24/2020 09:43:05 Reading Location: [id number] Reading Room Procedure Note Interface, External Ris In - 01/24/2020 9:45 AM CDT FINAL REPORT Ultrasound guided paracentesis Clinical History: Ascites. Sedation: None. Visual Education Director: Christine Ward PA-C Supervising Physician: Natan Chisholm MD Cartridge Loading Operator: None. Estimated Blood Loss: < 1 [...] anesthesia was achieved with lidocaine, a 5 Uruguayan one-step catheter was advanced into the peritoneal cavity under ultrasound guidance. After completion of drainage, the cathet er was removed. There was no evidence of complication. Impression: Successful ultrasound guided paracentesi s. Signed: Natan Chisholm MD Report Verified Date/Time: 01/24/2020 0 9:43:05 Reading Location: [facility] Reading Room Performing Organization Address City/State/Zipcode Phone Number [facility] Peripheral Blood Smear - Hold only (01/21/2020 9:31 AM CDT) Peripheral Smear Save saved [facility] Specimen Blood Performing Organization Address City/[facility]/Zipcode Phone Number [address] [address] CENTER Reticulocyte count (01/21/2020 9:31 AM CDT)Only the most recent of2 results within the time period is included. % Retic 5.3 (H) 0.5 - 1.7 % [facility] Specimen Blood Narrative Performed At Supervisory It Specialist ID - [id number] [facility] ICAL CENTER Performing Organization Address City/State/Zipcode Phone Number [facility] MEDICAL [address] [place] [address] CENTER XR chest 1 view portable / bedside (01/21/2020 9:10 AM CDT)Only the most recent of2 resultswithin the time period is included. Specimen Narrative Performed At FINAL REPORT [facility] INDICATION: Edema COMPARISON: January 20, 2020 TECHNIQUE: [...] MD Report Verified Date/Time:01/21/2020 10:03:32 Reading Location: [email or web address] [facility] Reading Room Procedure Note Interface, External [...] Verified Date/Time: 01/21/2020 1 0:03:32 Reading Location: [email or web address] [facility] Reading Room Performing Organization Address City/State/Zipcode Phone Number [facility] Metanephrines, 24 hour urine (01/20/2020 10:51 PM CDT) TOTAL VOLUME 1000 mL [facility] Metanephrine 205 90 - 315 [facility] Comment: mcg/24 h INCORPORATED This test was developed and its analytical perfo rmance characteristics have been determined by [employer] [facility]. It has not been cleared or approved by FDA. This assay has been validated pursuant to the CLIA regulations and is used for clinical purposes. Normetanephrine 971 115 - 019 [facility] Comment: mcg/24 h INCORPORATED This test was developed and its analytical perfo rmance characteristics have been determined by [employer] [facility]. It has not been cleared [...] perfo rmance characteristics have been determined by [employer] [facility] [place]. It has not been cleared or approved by FDA. This assay has been validated pursuant to the CLIA regulations and is used for clinical purposes. Specimen Urine Narrative Performed At Performing Lab [facility] [address] [facility], [place] [address] Mark Encarnacion MD, PhD, AMINA Performing Organization Address City/State/Zipcode Phone Number [facility], [place] [address] INCORPORATED [address] [facility] Catecholamines, Fractionated, 24hr urine (01/20/2020 10:51 PM CDT) TOTAL VOLUME 1000 mL [facility] Epinephrine,24 Hr Ur <2 (L) 2 - 24 mcg/24 h [facility] Comment: INCORPORATED Result below clinical reportable range for this analyte, which is 2 mcg/L. Reported result was calculated using 2 mcg/L. This test was developed and its analytical perfo rmance characteristics have been determined by [employer] [facility]. It has not been cleared or approved by FDA. This assay has been validated pursuant to the CLIA regulations and is used for clinical purposes. Norepinephrine 9 (L) 15 - 100 mcg/24 [facility] Comment: h INCORPORATED This test was developed and its analytical perfo rmance characteristics have been determined by [employer] [facility]. It has not been cleared or approved by FDA. This assay has been validated pursuant to the CLIA regulations and is used for clinical purposes. Calculated Total E+Ne 9 (L) 26 - 121 mcg/24 [facility] Comment: h INCORPORATED This test was developed and its analytical perfo rmance characteristics have been determined by [employer] [facility]. It has not been cleared [...] perfo rmance characteristics have been determined by [employer] [facility]. It has not been cleared or approved by FDA. This assay has been validated pursuant to the CLIA regulations and is used for clinical purposes. Creatinine,24 Hr Urin 0.88 0.50 - 2.15 [facility] g/24 h INCORPORATED Specimen Urine Narrative Performed At Performing Lab [facility] [address] [place] [address] Mark Encarnacion MD, PhD, AMINA Performing Organization Address [facility] Psychiatric Centercode Phone Number [facility], [place] [address] INCORPORATED [address] [address] [facility] [address] Type and screen, automated (01/20/2020 8:39 PM CDT)Only the most recent of2 resultswithin the time period is included. ABO/RH AUTOMATED (BEAKER) A POSITIVE [facility] Ab Scrn NEGATIVE [facility] Specimen Blood Performing Organization Address City/[facility]/Zipcode Phone Number [facility] [address] [place] [address] MR abdomen without IV contrast (01/20/2020 5:54 PM CDT) Specimen Narrative Performed At FINAL REPORT [employer] [facility] TECHNIQUE: MRI of the abdomen WITHOUT in [...] MD Report Verified Date/Time:01/21/2020 07:51:30 Reading Location: [facility] Reading Room - [place] [address] 1129 Procedure Note Interface, External Ris In [...] in size since prev ious exam in 2015. On the prior exam [...] Verified Date/Time: 01/21/2020 0 7:51:30 Reading Location: [facility] Reading Room - [place] [address]9 Performing Organization Address City/State/Zipcode Phone Number GE [facility]IS Urinalysis w/Microscopic + Reflex to Culture (01/19/2020 11:19 PM CDT) [facility], UA Yellow [facility] Clarity, UA Hazy [facility] Specific [place], UA 1.017 1.001 - 1.[address] [facility] pH, UA 5.5 5.0 - 8.0 [facility] Protein, UA 20 mg/dL (A) Negative [facility] Glucose, UA Negative Negative [facility] Ketones, UA Negative Negative [facility] Bilirubin, UA Negative Negative [facility] Blood, UA Small (A) Negative [facility] Nitrite, UA Negative Negative [facility] Leukocytes, UA Trace (A) Negative [facility] Urobilinogen, UA 0.2 0.2 - 1.0 mg/dL [facility] RBC, UA 1 /HPF [facility] WBC, UA 3 /HPF [facility] Bacteria, UA Rare [facility] Squam Epithel, UA 3 /HPF [facility] Hyaline Casts, UA 3 /LPF [facility] Specimen Source [facility] Specimen Urine Performing Organization Address City/[facility] Psychiatric Centercode Phone Number [address] [address] [place] Sodium, random urine (01/19/2020 11:19 PM CDT)Only the most recent of3 results within the time period is included. Sodium Urine <20 meq/L [facility] Specimen Urine Narrative Performed At Reference Range: No Normals [facility] Supervisory It Specialist ID - PIAYA L Performing Organization Address [facility] Psychiatric Centercode Phone Number [address] [address] [place] Urinalysis w/Microscopic (01/19/2020 11:19 PM CDT)Only the most recent of2 resultswithin the time period is included. Color, UA Yellow [facility] Clarity, UA Hazy [facility] Specific [place], UA 1.017 1.001 - 1.[address] [facility] pH, UA 5.5 5.0 - 8.0 [facility] Protein, UA 20 mg/dL (A) Negative [facility] Glucose, UA Negative Negative [facility] Ketones, UA Negative Negative [facility] Bilirubin, UA Negative Negative [facility] Blood, UA Small (A) Negative [facility] Nitrite, UA Negative Negative [facility] Leukocytes, UA Trace (A) Negative [facility] Urobilinogen, UA 0.2 0.2 - 1.0 mg/dL [facility] RBC, UA 1 /HPF [facility] WBC, UA 3 /HPF [facility] Bacteria, UA Rare [facility] Squam Epithel, UA 3 /HPF [facility] Hyaline Casts, UA 3 /LPF [facility] Specimen Source [facility] Specimen Urine Narrative Performed At Supervisory It Specialist ID - [auto] [facility] Supervisory It Specialist ID - tech Performing Organization Address City/State/Zipcode Phone Number [facility] [address] [place] [address] [place] Blood Culture - Routine (Right Venipuncture) (01/19/2020 9:45 PM CDT)Only the most recent of4 resultswithin the time period is included. Result No growth in 5 days [facility] Specimen Blood Performing Organization Address [facility]/Zipcode Phone Number [address] [address] CENTER [id number] PHENOTYP (01/19/2020 9:43 PM CDT) Specimen Blood Narrative Performed At This result has an attachment that is no t available. Performing Organization Address [facility] Psychiatric Centercode Phone Number [facility] [address] [facility] o, [place] Blood gas, arterial (01/19/2020 3:44 PM CDT) pH, Arterial 7.42 7.35 - 7.45 [facility] pCO2, Arterial 36 35 - 45 mmHg [facility] pO2, Arterial 78 (L) 80 - 90 mmHg [facility] O2 Sat, Arterial 96.2 96.0 - 97.0 % [facility] HCO3, Arterial 23 21 - 29 mmol/L [facility] Base Excess, Arterial -1.9 -2.0 - 3.0 mmol/L [facility] Patient Temperature 36.1 C [facility] FIO2 28.0 % [facility] Specimen Blood, Arterial Performing Organization Address [facility] Psychiatric Centercode Phone Number [address] [address] CENTER Cryptococcal antigen (01/19/2020 3:04 PM CDT) Cryptococcal Antigen, Serum Negative Negative, Interferen ce [facility] Specimen Blood Performing Organization Address [facility]/Zipcode Phone Number [address] [address] CENTER Rubeola antibody IgG (01/19/2020 [...] patient. For additional information, please refer to http://education.Hashplex/faq/JGL296 (This link is being provided for informational/ educational purposes only.) Specimen Blood Narrative Performed At Performing Lab [facility] *[employer] [facility] [address] [place] [phone] H Jorje Hargrove MD Performing Organization Address City/[facility]iatric Centercode Phone Number [facility] [place] [place] [address] [address] [place] [address] Rubella antibody, IgG (01/19/2020 3:04 PM CDT) Rubella IgG Quant 127.0 (H) <8.0 IU/mL [facility] Specimen Blood Narrative Performed At Rubella IgG Result Interpretation: [facility] </= 7.0 IU/mL Negative - Presumed non-immune 8.0 - 9.9 IU/mL Equivocal >= 10.0 IU/mL Positive - Presumed immune Performing Organization Address City/[facility]/Zipcode Phone Number [facility] [address] [place] [address] CENTER Varicella zoster antibody, IgG (01/19/2020 3:04 PM CDT) Varicella IgG 3.6 [facility] Specimen Blood Narrative Performed At VARICELLA ZOSTER RESULT INTERPRETATIONS: [facility] <=0.8 AlNonreactive:Presumed non-immune to VZV 0.9-1.0 AlEquiv ocal >=1.1 AlReactive:Presumed immune to VZV Performing Organization Address City/State/Zipcode Phone Number [facility] [address] [place] [address] CENTER Mumps antibody, IgG (01/19/2020 [...] Specimen Blood Narrative Performed At Performing Lab [facility] *[employer] [facility] [employer] [address] [place] [phone] H Jorje Hargrove MD Performing Organization Address City/[facility] Centercode Phone Number [facility] [place] [place] [address] [address] [place] [address] US breast bilateral (01/19/2020 9:10 AM CDT) [...] MD Report Verified Date/Time:01/19/2020 09:52:28 Reading Location: [address] Mammo Re ading Room Procedure Note [...] Verified Date/Time: 01/19/2020 0 9:52:28 Reading Location: [address] Flr Mammo Re ading Room Performing Organization Address [facility] Psychiatric Centercomi Phone Number RIS Aldosterone (01/19/2020 4:11 AM CDT) Aldosterone 22 ng/dL [employer] Comment: Adult Reference Ranges for Aldosterone: Upright 8:00-10:00 am< or = 28 ng/d L Upright 4:00-6:00 pm < or = 21 ng/d L Supine8:00-10:00 am3-16 ng/dL This test was developed and its analytical perfo rmance characteristics have been determined by [employer] [facility]. It has not been cleared or approved by FDA. This assay has been validated pursuant to the CLIA regulations and is used for clinical purposes. Specimen Blood Narrative Performed At Performing Lab [facility] [email or web address] [facility] tute [address] [place] [address] Mark Encarnacion MD, PhD, AMINA Performing Organization Address [facility] Phone Number [facility] [place] [address] INCORPORATED [address] [facility] Renin, plasma (01/19/2020 4:11 AM CDT) PRA,LC/MS/MS 1.51 0.25 - 5.82 [employer] Comment: ng/mL/h INCORPORATED This test was developed and its analytical perfo rmance characteristics have been determined by [employer] [facility]. It has not been cleared or approved by FDA. This assay has been validated pursuant to the CLIA regulations and is used for clinical purposes. Specimen Blood Narrative Performed At Performing Lab [facility] [address] [place] [address] Mark Encarnacion MD, PhD, AMINA Performing Organization Address City/State/Zipcode Phone Number [facility] [place] [address] [facility] abdomen without IV contrast (01/19/2020 12:40 AM CDT) Specimen Narrative Performed At FINAL REPORT [facility] TECHNIQUE: CT of the abdomen WITHOUT int [...] MD Report Verified Date/Time:01/19/2020 08:09:04 Reading Location: [facility] g Reading Room - [place] [address] Procedure Note Interface, External Ris In [...] Verified Date/Time: 01/19/2020 0 8:09:04 Reading Location: [facility] Reading Room - [place] [address] Performing Organization Address City/State/Zipcode Phone Number [facility] US renal complete (01/19/2020 12:20 AM CDT) Specimen Narrative Performed At FINAL REPORT [facility] Ultrasound of the Kidneys Clinical History:Re-examine L [...] 1:26:59 Performing Organization Address City/State/Zipcode Phone Number RIS Protein, random urine (01/18/2020 8:49 PM CDT) Protein, Urine 45 (H) 0 - 14 mg/dL [facility] Specimen Urine - Urine, Sterile Collection Narrative Performed At Supervisory It Specialist ID - EDWIN B [facility] MED ICAL CENTER Performing Organization Address [facility] Psychiatric Centercode Phone Number [address] [address] [place] Creatinine, random urine (01/18/2020 8:49 PM CDT)Only the most recent of2 resultswithin the time period is included. Creatinine, Ur 181.3 mg/dL [facility] Specimen Urine - Urine, Sterile Collection Narrative Performed At Reference Range: No Normals [facility] Supervisory It Specialist ID - EDWIN B Performing Organization Address [facility] Centercomi Phone Number [address] [address] [place] Eosinophil smear (01/18/2020 8:49 PM CDT) Eosinophil Smear Rare EOS =less than 5% No EOS seen [facility] WBCs seen are EOS (A) MED[facility]TER Specimen Urine - Urine, Sterile Collection Performing Organization Address [facility] Centercomi Phone Number [address] [address] [place] Myocardial Perfusion Pet/CT (Rest & Stress) (01/18/2020 9:20 AM CDT) Specimen Narrative Performed At FINAL REPORT [facility] PROCEDURE: MYOCARDIAL PERFUSION PET IMAG ING (Rest/Stress) CPT CODE: 71738 INDICATION: Evaluation for liver transpl ant CARDIOVASCULAR [...] MD Report Verified Date/Time:01/18/2020 12:45:40 Reading Location: [address] Reading Room Procedure Note Interface, External Ris In - 01/18/2020 12:47 PM CDT FINAL REPORT PROCEDURE: MYOCARDIAL PERFUSION PET IMAG ING (Rest/Stress) CPT CODE: 31022 INDICATION: Evaluation for liver transpl ant CARDIOVASCULAR [...] Verified Date/Time: 01/18/2020 1 2:45:40 Reading Location: [address] [id number] [facility] Reading Room Performing Organization Address City/State/Zipcode [...] on 01/19/2020 7:03:55 AM Performing Organization Address City/State/[facility] Psychiatric Centercode Phone Number GE MUSE ECG 12 lead (01/18/2020 8:46 AM CDT)Only the most recent of2 resultswithin the time period is included. Specimen Narrative Performed At Ventricular Rate 62 BPM GE [facility] Atrial Rate 62 BPM P-R Interval 138 ms QRS Duration 86 ms Q-T Interval 452 ms QTC Calculation(Bazett) 458 ms P [place] 59 degrees R [place] 32 degrees T [place] 56 degrees Normal sinus rhythm Low voltage [...] 452 ms QTC Calculation(Bazett) 458 ms P [place] 59 degrees R [place] 32 degrees T [place] 56 degrees Normal sinus rhythm Low voltage QRS Nonspecific ST abnormality 17 JAN 2020 11:05 Nonspecific T wave abnormality Nonspecif ic T wave abnormality, improved in QT has shortened Confirmed by MD DOUGHERTY YOCHAI ([id number]) on 01/18/2020 2:19:38 PM Performing Organization Address City/State/[facility]iatric Centercode Phone Number GE MUSE T Spot [...] no t available. Performing Organization Address City/State/[facility] Psychiatric Centercomi Phone Number [facility] [address] [place] [address] [address] REPORT OF PROCEDURE - ENDOSCOPY URL (01/17/2020 9:11 AM CDT) Narrative Performed At This result has an attachment that is no t available. REPORT OF PROCEDURE - ENDOSCOPY URL (01/17/2020 8:39 AM CDT) Narrative Performed At This result has an attachment that is no t available. Tissue Exam (01/17/2020 8:15 AM CDT) Case Report Surgical Pathology Report Case: [id number] [facility] Authorizing Provider:Sylvie Larry MDCollected: 01/17/2020 08:15 AM MEDICAL CENTER Ordering Location: [address] Received:01/17/2020 01:50 PM Service Pathologist: Humaira Mendez MD Specimen:Duodenum, biopsy ADDENDUM THIS ADUODENUMIS ISSUED TO R EPORT THE FINDINGS IN THE DEEPER LEVELS OF THE BIOPSY AND GIVE THE FINAL DIAGNOSIS: [facility] DUODENUM, ENDOSCOPIC BIOPSY: - ECTATIC VESSELS IN THE LAMINA PROPRIA, SUGGE STIVE OF PORTAL DUODENOPATHY - NO FEATURES OF CELIAC DISEASE SEEN - NO GRANULOMAS, DYSPLASIA OR MALIGNANCY SEEN DIAGNOSIS DUODENUM, ENDOSCOPIC BIOPSY: [facility] - SUPERFICIAL FRAGMENTS OF SMALL BOWEL MUCOSA WITH GASTRIC FOVEOLAR METAPLASIA [facility] Signing Pathologist Direct Phone Line: CPT Code(s) 40112 [facility] CLINICAL HISTORY Procedure: upper endoscopy, biopsy and colonosc opy [facility] Pre and postop diagnosis: anemia MEDICAL CENTER SPECIMEN SOURCE A. Duodenum; biopsy [facility] GROSS DESCRIPTION A. The specimen is received [facility] in formalin labeled with MEDICAL CENTER the patient's name, accession number and "[email or web address]" and consists of one garduno-pink mucosal-covered pieces of tissue measuring 0.3 x 0.2 x 0.1 cm. The specimen is submitted entirely following filtration in a cassette A1. HS/pl MICROSCOPIC DESCRIPTION PERFORMED [facility] Specimen Tissue Performing Organization Address City/[facility] Psychiatric Centercode Phone Number [address] [address] CENTER Lactate dehydrogenase (LDH) (01/16/2020 12:24 PM CDT) LDH 250 (H) 125 - 220 U/L [facility] Specimen Blood Narrative Performed At Supervisory It Specialist ID - TUAN Mera [facility] MED ICAL CENTER Performing Organization Address City/[facility]/Zipcode Phone Number [place] [phone] [place] [address] CENTER Vitamin B12 and Folate (01/16/2020 11:25 AM CDT) Vitamin B12 1,107 (H) 213 - 816 pg/mL [facility] Folate 3.40 (L) >=7.00 ng/mL [facility] Specimen Blood Narrative Performed At Supervisory It Specialist ID - NTP [facility] Performing Organization Address City/State/Zipcode Phone Number [address] [address] CENTER HIV-1 Antigen with HIV-1/2 Antibody (01/16/2020 11:25 AM CDT) HIV-1 Antigen with HIV 1&2 Nonreactive Nonreactive [facility] Specimen Blood Narrative Performed At Supervisory It Specialist ID - TUAN Mera [facility] Performing Organization Address City/[facility]/Zipcode Phone Number [address] [address] CENTER Haptoglobin (01/16/2020 11:25 AM CDT) Haptoglobin <8 (L) 14 - 258 mg/dL [facility] Specimen Blood Narrative Performed At Supervisory It Specialist ID - TUAN C [facility] Performing Organization Address City/[facility]/Zipcode Phone Number [address] [address] CENTER US abdominal with doppler (01/16/2020 6:30 AM CDT) Specimen Narrative Performed At FINAL REPORT [facility] ULTRASOUND ABDOMEN COMPLETE, ULTRASOUND DUPLEX DOPPLER HISTORY: [...] MD Report Verified Date/Time:01/16/2020 07:32:01 Reading Location: [address] Reading Room Procedure Note Interface, External [...] Verified Date/Time: 01/16/2020 0 7:32:01 Reading Location: [address] Reading Room Performing Organization Address [facility]iatric Centercode Phone Number [facility] Drug screen, urine, transplant (01/15/2020 9:52 PM CDT) Specimen Urine Narrative Performed At This result has an attachment that is no t available. Performing Organization Address [facility] Centercomi Phone Number [place] [phone] [place] [address] Blood typing, automated - - at seperate draw time from initial type and screen (01/15/2020 6:16 PMCDT) ABO/RH AUTOMATED (BEAKER) A POSITIVE [facility] Specimen Blood Performing Organization Address City/[facility]/Zipcode Phone Number [facility] [address] [place] [address] CT chest without IV contrast (01/15/2020 5:54 PM CDT) Specimen Narrative Performed At FINAL REPORT Zannel CT of the chest, without contrast Clinical [...] Liver is cirrhotic. There is a large uqe unt of ascites. Osseous structures demonstrate mild degenerative changes. No suspicious bony lesion is identified. Impression: Pulmonary emphysema. Cirrhosis and large amount of ascites. Small hiatal hernia. Signed: Roger Hampton MD Report Verified Date/Time:01/15/2020 17:57:54 [place] Location: [address] Reading Room Procedure Note Interface, External [...] Verified Date/Time: 01/15/2020 1 7:57:54 [place] Location: [address] [facility] sult Reading Room Performing Organization Address City/[facility]/Zipcode Phone Number GE RIS XR chest 2 [...] MD Report Verified Date/Time:01/15/2020 17:16:49 [place] Location: [place] [id number] Reading Room Procedure Note Interface, External Ris [...] Verified Date/Time: 01/15/2020 1 7:16:49 [place] Location: [facility] [id number] [facility] Reading Room Performing Organization Address City/[facility]/Zipcode Phone Number GE RIS XR mandible min 4 views (01/15/2020 4:39 PM CDT) Specimen Narrative Performed At FINAL REPORT RIS MANDIBLE 4 VIEWS HISTORY: Cirrhosis, liver [...] MD Report Verified Date/Time:01/15/2020 17:22:12 [place] Location: [address] Reading Room Procedure Note Interface, External [...] Verified Date/Time: 01/15/2020 1 7:22:12 [place] Location: [address] Reading Room Performing Organization Address [facility] Cent[facility] Phone Number [facility] Mitochondria M2 Antibody (IgG) (01/15/2020 4:17 PM CDT) Mitochondria M2 Ab <20.0 See Note: [facility] Comment: Reference Range: NEGATIVE:< OR = 20.0 EQUIVOCAL: 20.1-24.9 POSITIVE:> OR = 25.0 Specimen Blood Narrative Performed At Performing Lab [facility] [address] [place] [address] I Shashank ADRIAN, PhD, AMINA Performing Organization Address City/[facility] Centercode Phone Number [facility] [place] [address] [id number] [place] [address] Iron, TIBC, % sat. (without ferritin) (01/15/2020 4:17 PM CDT) Iron 144.0 40.0 - 160.0 ug/dL [facility] TIBC 129 (L) 250 - 450 ug/dL [facility] Iron % Saturation 112 (H) 20 - 55 % [facility] Specimen Blood Narrative Performed At Supervisory It Specialist ID - DB [facility] Performing Organization Address City/[facility] Centercode Phone Number [address] [address] CENTER Hepatitis C antibody (01/15/2020 4:17 PM CDT) Hepatitis C Ab Nonreactive Nonreactive [facility] Specimen Blood Narrative Performed At Supervisory It Specialist ID - DB [facility] Performing Organization Address City/[facility] Centercode Phone Number [address] [address] CENTER Cytomegalovirus antibody, IgM (01/15/2020 4:17 PM CDT) CMV IGM Negative Negative, Equivocal [facility] Specimen Blood Narrative Performed At CMV IgM Result Interpretation: [facility] </= 0.8 Al Negative 0.9-1.0 Al Equivocal >/= 1.1 Al Positive Performing Organization Address [facility] Centercode Phone Number [address] [address] [place] Actin (Smooth Muscle) Antibody, IgG (01/15/2020 4:17 [...] Specimen Blood Narrative Performed At Performing Lab Lesson Prep [facility] [employer] [facility] [address] [address] [place] [address] Mark Encarnacion MD, PhD, AMINA Performing Organization Address City/[facility] Centercode Phone Number [facility] [place] [address] [facility] [address] [facility] [id number] (01/15/2020 4:17 PM CDT) A-1 Antitrypsin 121.20 90.00 - 200.00 mg/dL [facility] Specimen Blood Narrative Performed At Supervisory It Specialist ID - DB [facility] Performing Organization Address [facility] Centercomi Phone Number [address] [address] CENTER Hepatitis A antibody, IgM (01/15/2020 4:17 PM CDT) Hep A IgM Nonreactive Nonreactive [facility] Specimen Blood Narrative Performed At Supervisory It Specialist ID - DB [facility] Performing Organization Address [facility] Centercomi Phone Number [address] [address] CENTER Carbohydrate antigen 19-9 (CA 19-9) (01/15/2020 4:17 PM CDT) CA 19-9 32 <34 U/mL [facility] Comment: This test was performed using the Siemens Chemil uminescent method. Values obtained from different assay methods can not be used interchangeably. CA19-9 levels, regardless of value, should not b e interpreted as absolute evidence of the presence or absence of disease. Specimen Blood Narrative Performed At Performing Lab [facility] [employer] Inst[place] [address] [address] [place] [address] Mark Encarnacion MD, PhD, MAINA Performing Organization Address City/[facility] Centercode Phone Number [facility] [place] [address] [facility]ATED [address] [facility] Ceruloplasmin (01/15/2020 4:17 PM CDT) Ceruloplasmin 21 18 - 53 mg/dL [facility] Specimen Blood Narrative Performed At Performing Lab [facility] *BEATRIZ [facility], [address] [place] [phone] Jorje Jauregui MD, PhD Performing Organization Address [facility] Centercode Phone Number [facility] [place] [address] [facility] [address] [facility] Zinc (01/15/2020 4:17 PM CDT) Zinc 39 (L) 60 - 130 mcg/dL [facility] Comment: INCORPORATED This test was developed and its analytical perfo rmance characteristics have been determined by [employer]. It has not been cleared or approved by the FDA. This assay has been validated pursuant to [facility] CLIA regulations and is used for clinical purposes. Specimen Blood Narrative Performed At Performing Lab [facility] *BEATRIZ [facility], [address] [place] [phone] Jorje Jauregui MD, PhD Performing Organization Address [facility] Centercomi Phone [place] [address] [facility]ATED [address] [facility] Alpha fetoprotein (AFP), tumor marker (01/15/2020 4:17 PM CDT)Only the most recent of2 resultswithin the time period is included. Alpha-Fetoprotein <2.0 <10.0 ng/mL [facility] Specimen Blood Narrative Performed At Supervisory It Specialist ID - DB [facility] Performing Organization Address City/[facility]/Zipcode Phone Number [address] [address] CENTER Hepatitis B core antibody, IgM (01/15/2020 4:17 PM CDT) Hep B C IgM Nonreactive Nonreactive [facility] Specimen Blood Narrative Performed At Supervisory It Specialist ID - DB [facility] Performing Organization Address City/State/Zipcode Phone Number [address] [address] CENTER EBV-VCA antibody, IgM (01/15/2020 4:17 PM CDT) GABRIEL CHING VIRAL CAPSID Negative Negative, Equivocal [facility] Specimen Blood Narrative Performed At Gabriel Ching Viral Capsid Antigen IgM Result [facility] Interpretation: </= 0.8 Al Negative 0.9-1.0 Al Equivocal >/= 1.1 Al Positive Performing Organization Address [facility]/Zipcode Phone Number [address] [address] CENTER EBV-VCA antibody, IgG (01/15/2020 4:17 PM CDT) GABRIEL CHING VIRAL [employer] Positive (A) Negative, Equivocal [facility] Specimen Blood Narrative Performed At Gabirel Ching Viral Capsid Antigen IgG Result [facility] Interpretation: </= 0.8 Al Negative 0.9-1.0 Al Equivocal >/= 1.1 Al Positive Performing Organization Address [facility] Centercode Phone Number [address] [address] [place] Hepatitis B core antibody, total (01/15/2020 4:17 PM CDT) Hep B Core Total Ab Nonreactive Nonreactive [facility] Specimen Blood Narrative Performed At Supervisory It Specialist ID - [place] F [facility] Performing Organization Address City/[facility]/Zipcode Phone Number [address] [address] CENTER Vitamin D, 25-Hydroxy (01/15/2020 4:17 PM CDT) Vitamin D 25-Hydroxy 6.2 (L) 6.6 - 49.9 ng/mL [facility] Specimen Blood Narrative Performed At Effective 05/07/2017: Reference Range Ch von [facility] New: 6.6-49.9 ng/mL Previous: 13.0-47.8 ng/mL Recommended Vitamin D Target Range: 30.0-40.0 ng/mL Supervisory It Specialist ID - DB Performing Organization Address City/[facility]/Zipcode Phone Number [address] [address] CENTER RPR (01/15/2020 4:17 PM CDT) RPR Nonreactive Nonreactive [facility] Specimen Blood Performing Organization Address [facility] Centercomi Phone Number [address] [address] CENTER Hepatitis B surface antibody (01/15/2020 4:17 PM CDT) Hep B S Ab 25.0 (H) <8.0 mIU/mL [facility] Specimen Blood Narrative Performed At Supervisory It Specialist ID - DB [facility] Performing Organization Address [facility] Phone Number [address] [address] CENTER Hepatitis B surface antigen (01/15/2020 4:17 PM CDT) HBsAg Screen Nonreactive Nonreactive [facility] Specimen Blood Narrative Performed At Specimen is considered negative for HBsAg. [facility] Performing Organization Address [facility] Centercode Phone Number [address] [address] CENTER Cytomegalovirus antibody, IgG (01/15/2020 4:17 PM CDT) CYTOMEGALOVIRUS, IGG Positive (A) Negative, Equivocal [facility] Specimen Blood Narrative Performed At CMV IgG Result Interpretation: [facility] </= 0.8 Al Negative 0.9-1.0 Al Equivocal >/=1.1 AlPositive Performing Organization Address [facility] Centercode Phone Number [facility] [address] [place] aPTT (01/15/2020 4:17 PM CDT) PTT 36.8 (H) 22.5 - 36.0 seconds [facility] Specimen Blood Performing Organization Address [facility] Centercode Phone Number [address] [address] [place] Fibrinogen (01/15/2020 4:17 PM CDT) Fibrinogen 114 (L) 225 - 434 mg/dl [facility] Specimen Blood Performing Organization Address [facility] Centercomi Phone Number [address] [address] [place] Anti-Nuclear Antibody (REILLY) (01/15/2020 4:17 PM CDT) REILLY Negative Negative [facility] Specimen Blood Narrative Performed At Test performed by IFA method. [facility] Test performed by IFA method. Performing Organization Address [facility] Phone Number [address] [address] [place] T3 (01/15/2020 4:17 PM CDT) T3, Total 51 48 - 159 ng/dL [facility] Specimen Blood Narrative Performed At This result has an attachment that is no t available. Performing Organization Address City/[facility] Centercode Phone Number [facility] [address] [place], [place] Transferrin (01/15/2020 4:17 PM CDT) Transferrin 102 (L) 174 - 382 mg/dL [facility] Specimen Blood Narrative Performed At Supervisory It Specialist ID - DB [facility] Specimen moderately icteric Performing Organization Address [facility] Centercode Phone Number [address] [address] CENTER TSH (01/15/2020 4:17 PM CDT) TSH 5.549 (H) 0.350 - 4.940 uIU/mL [facility] Specimen Blood Narrative Performed At Supervisory It Specialist ID - DB [facility] Performing Organization Address City/State/Zipcode Phone Number [address] [address] CENTER T4 (01/15/2020 4:17 PM CDT) T4, Total 4.3 (L) 4.9 - 11.7 ug/dL [facility] Specimen Blood Narrative Performed At Supervisory It Specialist ID - NTP [facility] Performing Organization Address City/[facility]/Zipcode Phone Number [address] [address] CENTER Hemoglobin A1c (01/15/2020 4:17 PM CDT) Hemoglobin A1C <3.8 (L) 4.3 - 6.1 % [facility] Specimen Blood Performing Organization Address City/[facility] Centercode Phone Number [address] [address] C[place] Ferritin (01/15/2020 4:17 PM CDT) Ferritin 489.86 (H) 5.00 - 275.00 ng/mL [facility] Specimen Blood Narrative Performed At Supervisory It Specialist ID - NTP [facility] Performing Organization Address City/State/Zipcode Phone Number [address] [address] CENTER Carcinoembryonic Antigen (CEA) (01/15/2020 4:17 PM CDT) CEA, SERUM 7.9 (H) 0.0 - 5.0 ng/mL [facility] Specimen Blood Narrative Performed At Supervisory It Specialist ID - DB [facility] Performing Organization Address City/State/Zipcode Phone Number [facility] [address] [place], [place] [phone] CENTER Ethanol (01/15/2020 4:17 PM CDT) Ethanol Lvl <10 <=10 mg/dL [facility] Specimen Blood Narrative Performed At Supervisory It Specialist ID - DB [facility] MED [facility] Performing Organization Address [facility]/Zipcode Phone Number [place] [phone] [place] [address] CENTER 2D Echo W/Doppler(CW/PW/Color) (01/15/2020 2:45 PM CDT) Ejection Fraction [facility] Specimen Narrative Performed At Transthoracic Echocardiography Report (T TE) [facility] Demographics Patient Name CICI CALDERON Date of Study 01/15/2020 ALYSE [id number] GenderFem shalom Visit Number [id number] RaceUnkn own [id number] m Number [id number] Number Date of Birth1955 Referring Physician Ren Hernandez MD Age64 year(s) [employer] Lisa Bautista [facility] InterpretingJoseolvin Arreguin MD Physician Procedure Type [...] Study 01/15/2020 ALYSE Gender Female Visit Number [id number] Race Unknown [place] [id number] Number Date of 1955 Referri Physician Ren [...] l/min/m^2 Performing Organization Address City/State/Zipcode Phone Number [facility] Carotid doppler bilateral (01/15/2020 2:41 PM CDT) Ejection Fraction [facility]LAB [facility] Specimen Impressions Performed At Right Impression [facility] 1. The internal, common and [...] Performed At LAB - Carotid Duplex Study [facility] Demographics Patient NameJUAN ANTONIO CALDERONEDate of Study 01/15/2020 ALYSE 64 Visit [id number] Female of 1955 [facility] Room Number 1515 Physician [employer] Herbert maurice, T Physician Procedure Type of [...] Study 01/15/2020 ALYSE Age 64 Visit Number [id number] Gen margarita Female Accession Number [id number] Ramirez e of 1955 Referring [facility] Shady Todd Number 1515 Physician [employer] Herbert Jacobs [facility] [place] Resendez, Anna foss MD Procedure [...] Measurements:ICAPSV/CCAPS V 0.96.ICAEDV/CCAEDV 1.52. Performing Organization Address City/[facility] Centercode Phone Number [facility] ECHO HEARTLAB MKCKESSON [facility] Hepatitis panel, acute (01/15/2020 8:32 AM CDT) Hep A IgM Nonreactive Nonreactive [facility] Hep B C IgM Nonreactive Nonreactive [facility] Hepatitis C Ab Nonreactive Nonreactive [facility] HBsAg Screen Nonreactive Nonreactive [facility] Specimen Blood Narrative Performed At Supervisory It Specialist ID - NTP [facility] Performing Organization Address [facility] Centercomi Phone Number [address] [address] CENTER Ammonia (01/15/2020 8:32 AM CDT) Ammonia 19 18 - 72 mol/L [facility] Specimen Blood Narrative Performed At Supervisory It Specialist ID - [facility] Performing Organization Address [facility] Centercode Phone Number [place] [phone] [place] [address] CENTER Uric acid (01/15/2020 3:56 AM CDT) Uric Acid 15.7 (H) 2.6 - 7.2 mg/dL [facility] Specimen Blood Narrative Performed At Supervisory It Specialist ID - NTP [facility] Specimen moderately icteric Performing Organization Address City/[facility] Centercode Phone Number [address] [address] [place] Gamma Glutamyl Transferase (GGT) (01/15/2020 3:56 AM CDT) GGT 15 9 - 64 U/L [facility] Specimen Blood Narrative Performed At Supervisory It Specialist ID - NTP [facility] Specimen moderately icteric Performing Organization Address [facility] Centercode Phone Number [address] [address] [place] Lipid panel (01/15/2020 3:56 AM CDT) Triglycerides 86 mg/dL [facility] Cholesterol 101 mg/dL [facility] HDL 12 mg/dL [facility] LDL Calculated 72 mg/dL [facility] Specimen Blood Narrative Performed At Triglyceride Reference Range: [facility] Low Risk <150 Zgzckgsasa705-826 High Risk 200-499 Very High Risk>=500 Cholesterol Reference Range: Low Risk <200 [id number] High Risk>240 HDL Cholesterol Reference Range: Low Risk >=60 High Risk <40 LDL Cholesterol Reference Range: Optimal<100 Near Sazdncd590-402 Cmcawqisch190-320 Mjkm137-060 Very High >=190 Supervisory It Specialist ID - NTP Specimen moderately icteric Performing Organization Address City/[facility] Centercode Phone Number [address] [address] [place] SARS-CoV2/RT-PCR (Asymptomatic ONLY) (01/14/2020 7:28 PM CDT) SARS-COV2/RT-PCR Not Detected Not Detected, Negative [facility] SARS-COV-2 PERFORMING LAB [facility] Specimen Other Narrative Performed At Negative results do not preclude SARS-CoV-2 [facility] infection and should not be used [...] the Act. Fact Sheet for Healthcare Providers: https://www.[employer] [place]/Documents/Xpert%20Xpre ss%20SARS%20CoV-2/Fact%20Sheets/302-3802%20SAR S-COV-2%20HEALTHCARE%20PROVIDERS%20FACT%20SHEE T.pdf Fact Sheet for Healthcare Patients: https://www.[employer] [place]/Documents/Xpert%20Xpre ss%20SARS%20CoV-2/Fact%20Sheets/302-3801%20SAR S-COV-2%20PATIENT%20FACT%20SHEET.pdf Performing Laboratory: [address] [place] [address] Performing Organization Address City/State/Zipcode Phone Number [facility] [address] [place] [address] CENTER after 03/31/2019 Insurance Payer Benefit Plan / Subscriber ID Type Phone Address Group AETNA - MEDICARE AETNA MEDICARE HMO xxxxxxxx [address] [place] [address] CDC REVIEW CDC REVIEW xxxxxxxx [place] [address] Advance Directives For more information, please contact:[place] [phone] Leidy Francois [place], [place] [phone] Code Status Date Activated Date Inactivated Comments Full Code 01/14/2020 8:09 PM 01/26/2020 8:41 PM This code status was determined by: Patient
--- OUTSIDE RECORDS SUMMARY | 2020-03-31 08:49 | XMS REPORT ---
[...] End Status Dosage System Date Date Xixa [facility] 32950365703 550 MG Orally Active 1 tabl et Twice a day Folic Acid ND 72192361360 1 MG Orally Active 1 tab let Once a day Spironolactone [facility] 22808687882 25 MG Orally Active 1 tablet Vitamin D2 [facility] 28997671226 10 MCG (400 Active 2 tab lets UNIT) Orally Once a day Albuterol Sulfate [facility] 25133475512 108 (90 Base) October Acti ve 1 puff as HFA MCG/ACT , needed Inhalation 2019 every 6 hrs Calcitriol [facility] 06451716717 0.5 MCG Orally Active 1 capsule Once a day MagOx 400 [facility] 02650907755 400 (241.3 Mg) Active 1 t ablet MG Orally Once with food a day Lactulose [facility] 56755024387 20 GM/30ML Active 15 ml Orally Once a day Tramadol HCl [facility] 88769473327 50 MG Orally Active 1 tablet as Once a day needed Midodrine HCl [facility] 21544949824 2.5 MG Orally Active 1 tablet Three times a day Cimetidine [facility] 37242101556 200 MG Orally Active 1 t ablet as Once a day needed Pantoprazole [facility] [address]-26 40 MG Orally Active 1 packet Sodium Once a day mixed with apple juice or applesauce Results No Known Results Summary Purpose eClinicalWorks Submission
--- OUTSIDE RECORDS SUMMARY | 2020-03-31 08:49 | XMS REPORT | Continuity of Care Document ---
:1955 Author Organization [facility] t Address [address] [place] [address] Dr. Conklin [address] [place] [address] Care Team Providers Name Role Phone Nahun [...] MEDICARE MGD xxxxxxxx [facility] CAREAETNA MEDICARE [facility] POS Medical [phone] O [facility] [id number] [address] [facility] REVIEWCDC xxxxxxxx [facility] [id number] Center Problems Condition Condition Condition Status Onset Resolution Last Treating Co mments Source Name Details Category Date Date Treatment Clinician Date Acute Acute Disease Active [facility] liver liver 6[facility]19 [facility] - failure failure 00:00: Medical 00 [place] Elevated Elevated Disease Active [facility] [...] Last [facility] - [facility] t & Plan: Medical 00 EGD in Center March 2016 was negative for varices. Obesity Obesity Disease Active 2015-[address] (BMI (BMI 09-01 [facility] - 35.0-39.9 35.0-39.9 00:00: [...] 2015-[address] on on 09-01 [facility] - [facility]: t & Plan: Medical 00 Recommend Center miralax Screening Screening Disease Active 2015-[address] [facility] [address] for for 09-01 [facility] - malignant malignant 00:00: [...] [facility] Hospital Problem Active [facility] [...] Active hives [facility] line HCl Reaction [facility] Levaquin Adverse Active vomiting/jocy C [facility] Reaction rrhea [facility] Erythrom Adverse Active vomiting/jocy C [facility] Family History Family Member Diagnosis Comments Start Date Stop Date Source Natural brother Diabetes [facility] Natural brother Hypertension [facility] Natural brother Arthritis [facility] Natural brother COPD [facility] Natural father Diabetes [facility] Natural father Heart disease [facility] Natural mother Diabetes [facility] Natural mother Heart disease [facility] Natural sister Cancer [facility] Social History Social Habit Start Date Stop Date Quantity Comments Source Sex Assigned At [facility] Alcohol Comment 2016-07-01 2016-07-01 social last drink I [facility] - 00:00:00 00:00:00 06/15/16 [facility] Smoking Status Start Date Stop Date Source Former smoker 2020-02-15 00:00:00 2020-02-15 00:00:00 [facility] Medications Ordered Filled Start Stop Current Ordering [...] 2 (two) times daily. ergocalcife 2020- Yes [id number] Q7D Take [address] rol [...] magnesium) daily. tablet lactulose 2020-0 Yes 20g [id number] Take [address] (CHRONULAC) 01-25 [id number] mLs (20 g [facility] - 20 gram/30 00:00: 3D total) by [place] d[place] mL solution 00 mouth 3 Cente r (three) times daily. midodrine 2019- No 2.5mg [id number] Take [address] (PROAMATINE 01-25 [id number] tablet [facility] - ) 2.5 MG 00:00: [...] [facility] Sulfate HFA Sulfate HFA 4-09 [place] needed [facility] - [facility] Cimetidine Cimetidine Yes Mitzy [address] [place] as needed [facility] Calcitriol Calcitriol Yes Mitzy [address] [place] [facility] Lactulose Lactulose Yes Mitzy [address] [place] [facility] Xifaxan Xifaxan Yes [place] [address] [place] [facility] Folic Acid Folic Acid Yes Mitzy [address] [place] [facility] Spironolact Spironolact Yes [place] [address] one one [place] [facility] Vitamin D2 Vitamin D2 Yes Mitzy [address] [place] [facility] MagOx 400 MagOx 400 Yes Mitzy [address] [place] with food [facility] Tramadol Tramadol Yes [place] [address] HCl HCl [place] as needed [facility] Midodrine Midodrine Yes Mitzy [address] HCl HCl [place] [facility] Pantoprazol Pantoprazol Yes Mitzy [address] e Sodium e Sodium [place] mixed with [facility] - apple Memoria juice or l applesauce [facility] Immunizations Ordered Filled Immunization Date Status Comments Sourc e Immunization Name Name Hepatitis A (adult) Hepatitis A (adult) 2020-02-21 Completed [facility] - 00:00:00 [facility] Hepatitis B (adult) Hepatitis B (adult) 2020-02-21 Completed [facility] - 00:00:00 [facility] Vital Signs Vital Name Observation Time Observation Value Comments Source Systolic blood 2020-02-15 10:30:00 131 mm[Hg] [facility] Diastolic blood 2020-02-15 10:30:00 78 mm[Hg] [facility] Heart rate 2020-02-15 10:30:00 98 /min [facility] Body temperature 2020-02-15 10:30:00 36.22 Shaneka [facility] Respiratory rate 2020-02-15 10:30:00 18 /min [facility] Body height 2020-02-15 10:30:00 162.6 cm [facility] Body weight Measured 2020-02-15 10:30:00 90.901 kg [facility] BMI 2020-02-15 10:30:00 34.40 kg/m2 [facility] Oxygen saturation in 2020-02-15 10:30:00 95 /min [facility] Arterial blood by Medical Ce nter Pulse oximetry Procedures Procedure Date / Time Performing Clinician Source Performed PROTHROMBIN TIME/INR 2020-03-10 08:03:00 Kristofer Cross [facility] COMPREHENSIVE METABOLIC 2020-03-10 08:03:00 Kristofer Cross [facility] CBC W/PLT COUNT & AUTO 2020-03-10 08:03:00 Kristofer Cross [facility] BILIRUBIN, DIRECT 2020-03-10 08:03:00 Kristofer Cross [facility] MISCELLANEOUS LAB ORDER 2020-02-15 12:29:00 AmericaKristofer [facility] MAGNESIUM 2020-02-15 12:29:00 AmericaKristofer [facility] BILIRUBIN, DIRECT 2020-02-15 12:29:00 AmericaKristofer [facility] COMPREHENSIVE METABOLIC 2020-02-15 12:29:00 AmericaKristofer [facility] PROTHROMBIN TIME/INR 2020-02-15 12:29:00 AmericaKristofer [facility] CBC W/PLT COUNT & AUTO 2020-02-15 12:29:00 AmericaKristofer [facility] PROTHROMBIN TIME/INR 2020-02-08 10:23:00 AmericaKristofer [facility] COMPREHENSIVE [facility] 2020-02-08 10:23:00 AmericaKristofer [facility] CBC W/PLT COUNT & AUTO 2020-02-08 10:23:00 AmericaKristofer [facility] BILIRUBIN, DIRECT 2020-02-08 10:23:00 AmericaKristofer [facility] PLATELET ESTIMATION 2020-02-08 10:23:00 AmericaKristofer [facility] PROTHROMBIN TIME/INR 2020-02-01 09:25:00 AmericaKristofer theodore [facility] 2020-02-01 09:25:00 AmericaKristofer [facility] CBC W/PLT COUNT & AUTO 2020-02-01 09:25:00 AmericaKristofer theodore [facility] BILIRUBIN, DIRECT 2020-02-01 09:25:00 AmericaKristofer [facility] RHYTHM STRIP - SCAN 2020-01-27 10:00:12 Provider, Default [facility] CARDIAC CATH REPORT - SCAN 2020-01-27 10:00:07 Provider, Default [facility] TRANSFUSE LEUKO-REDUCED 2020-01-26 22:41:07 Miguel Angel, Kaylin [facility] METANEPHRINES 2020-01-26 14:51:00 Blanca Hartley [facility] HEPATIC FUNCTION PANEL 2020-01-26 03:50:00 [facility] PROTHROMBIN TIME/INR 2020-01-26 03:50:00 [facility] CALCIUM, IONIZED 2020-01-26 03:50:00 [facility] COMPREHENSIVE METABOLIC 2020-01-26 03:50[facility]00 [facility] 2020-01-26 03:50:00 [facility] MAGNESIUM 2020-01-26 03:50:00 [facility] CBC W/PLT COUNT & AUTO 2020-01-26 03:50:00 Florian Kinney [facility] HEPATIC FUNCTION PANEL 2020-01-25 03:47:00 [facility] PROTHROMBIN TIME/INR 2020-01-25 03:47:00 [facility] BASIC METABOLIC PANEL (7) 2020-01-25 03:47:00 Leena Arias [facility] MAGNESIUM 2020-01-25 03:47:00 [facility] CBC W/PLT COUNT & AUTO 2020-01-25 03:47:00 Florian Kinney [facility] (CELLAVISION MANUAL DIFF) 2020-01-25 03:47:00 Florian Kinney [facility] TRANSFUSION SERVICE REPORT 2020-01-24 18:00:13 Provider, [facility] - SCAN [facility] PULMONARY FUNCTION - SCAN 2020-01-24 13:10:09 Provider, [facility] SPIROMETRY 2020-01-24 10:41:00 [facility] (SINGLE BREATH 2020-01-24 10:41:00 [facility] LUNG VOLUMES 2020-01-24 10:41:00 [facility], Fidaa Hani [facility] 6 MINUTE WALK(FOR LUNG 2020-01-24 10:20:00 Mariana Lin [facility] - TRANSPLANT ONLY) [facility] HEPATIC FUNCTION PANEL 2020-01-24 03:57:00 [facility] PROTHROMBIN TIME/INR 2020-01-24 03:57:00 [facility]vueRoscoe [facility] CALCIUM, IONIZED 2020-01-24 03:57:00 Kermit Nicole [facility] PHOSPHORUS 2020-01-24 03:57:00 Kermit Nicole [facility] BASIC METABOLIC PANEL (7) 2020-01-24 03:57:00 Leena Arias [facility] MAGNESIUM 2020-01-24 03:57:00 [facility] CBC W/PLT COUNT & AUTO 2020-01-24 03:57:00 [facility] PREPARE LEUKO-REDUCED RBC 2020-01-23 23:54:00 Vitor Orozco [facility] TRANSFUSION SERVICE REPORT 2020-01-23 18:00:[address] [facility] - SCAN [facility] HEPATIC FUNCTION PANEL 2020-01-23 04:32:00 [facility] PROTHROMBIN TIME/INR 2020-01-23 04:32:00 [facility] B-TYPE NATRIURETIC FACTOR 2020-01-23 04:32:[address] [facility] (BNP) [facility] CALCIUM, IONIZED 2020-01-23 04:32:00 Kermit Nicole [facility] PHOSPHORUS 2020-01-23 04:32:00 Kermit Nicole [facility] BASIC METABOLIC PANEL (7) 2020-01-23 04:32:00 Leena Arias [facility] MAGNESIUM 2020-01-23 04:32:00 Leena Arias [facility] CBC W/PLT COUNT & AUTO 2020-01-23 04:32:00 [facility] (CELLAVISION MANUAL DIFF) 2020-01-23 04:32:00 Juana [facility] PREPARE LEUKO-REDUCED 2020-01-22 23:54:[address] [facility] PLATELETS [facility] TRANSFUSION SERVICE REPORT 2020-01-22 18:01:00 Provider, Bozena [facility] TRANSFUSE LEUKO-REDUCED RED 2020-01-22 14:30:53 MazonVitor Valentine [facility] - BLOOD CELLS Depseaboardylo [facility] CORTISOL 2020-01-22 08:23:00 IsmaMe sedrickhwish [facility] CALCIUM, IONIZED 2020-01-22 04:35:00 Russ Ha [facility] HEPATIC FUNCTION PANEL 2020-01-22 04:35:00 [facility] BASIC METABOLIC PANEL (7) 2020-01-22 04:35:00 [place] [facility] MAGNESIUM 2020-01-22 04:35:00 [facility] CBC W/PLT COUNT & AUTO 2020-01-22 04:35:00 [facility] (CELLAVISION MANUAL DIFF) 2020-01-22 04:35:00 [place] [facility] PROTHROMBIN TIME/INR 2020-01-22 04:34:00 Galdino [facility] DIRECT [facility]HG (KRISTI)/DIRECT 2020-01-22 04:34:00 Gregory [facility] ABORH, MANUAL 2020-01-22 04:34:00 Gregory, [facility] TRANSFUSION SERVICE REPORT 2020-01-21 18:00:48 Provider, Default [facility] BODY FLUID CULTURE + GRAM 2020-01-21 16:54:00 Kaylin Michelle [facility] BODY FLUID CELL COUNT WITH 2020-01-21 16:54:[address] [facility] US PARACENTESIS 2020-01-21 16:40:00 Galdino [facility] MISCELLANEOUS LAB ORDER 2020-01-21 09:31:00 Isbrandonsedrick [facility] HEPATIC FUNCTION PANEL 2020-01-21 09:31:00 [facility] PROTHROMBIN TIME/INR 2020-01-21 09:31:00 [facility] COMPREHENSIVE METABOLIC 2020-01-21 09:31:00 [facility] 2020-01-21 09:31:00 [facility] MAGNESIUM 2020-01-21 09:31:00 AriasLeena [facility] CORTISOL 2020-01-21 09:31:[address] [facility] RETICULOCYTE COUNT 2020-01-21 09:31:00 Oumou Jenkins [facility] PERIPHERAL BLOOD SMEAR - 2020-01-21 09:31:00 [facility] CBC W/PLT COUNT & AUTO 2020-01-21 09:31:00 [facility]ST 1 VIEW 2020-01-21 09:10:00 [facility] PORT[facility]/BEDSIDE [facility] METANEPHRINES, 24 HOUR 2020-01-20 22:51:00 [facility] URINE [facility] CATECHOLAMINES, 2020-01-20 22:51:00 [facility] F[facility], 24HR URINE Medical Center TYPE AND SCREEN, AUTOMATED 2020-01-20 20:39:00 Miguel Angel, Kaylin C [facility] XR CHEST 1 VIEW 2020-01-20 20:28:00 [facility] PORTABLE/BEDSIDE [facility] TRANSFUSION SERVICE REPORT 2020-01-20 18:01:30 Bozena Lopes [facility] - - SCAN Scanning [facility] MR ABDOMEN WITHOUT IV 2020-01-20 17:54:00 [facility] CONTRAST [facility] HEPATIC FUNCTION PANEL 2020-01-20 04:10:00 [facility] PROTHROMBIN TIME/INR 2020-01-20 04:10:00 [facility] CALCIUM, IONIZED 2020-01-20 04:10:00 [facility] COMPREHENSIVE METABOLIC 2020-01-20 04:10:00 [facility] PHOSPHORUS 2020-01-20 04:10:00 Leland [facility] MAGNESIUM 2020-01-20 04:10:00 Leena Arias [facility] CBC W/PLT COUNT & AUTO 2020-01-20 04:10:00 Leland [facility] (CELLAVISION MANUAL DIFF) 2020-01-20 04:10:00 Leland [facility] PREPARE LEUKO-REDUCED RBC 2020-01-19 23:54:00 Miguel Angel, Kaylin [facility] URINALYSIS W/ MICROSCOPIC 2020-01-19 23:19:00 Leland [facility] SODIUM, RANDOM URINE 2020-01-19 23:19:00 Leland [facility] BLOOD CULTURE 2020-01-19 21:45:00 Galdino [facility] BLOOD CULTURE 2020-01-19 21:44:00 Galdino [facility] [id number] 2020-01-19 21:43:00 Kristofer Cross [facility] TRANSFUSION SERVICE REPORT 2020-01-19 18:01:08 Bozena Lopes [facility] BLOOD GAS, ARTERIAL 2020-01-19 15:44:00 Kristofer Cross [facility] CRYPTOCOCCAL ANTIGEN 2020-01-19 15:04:00 Kristofer Cross [facility] MUMPS ANTIBODY, IGG 2020-01-19 15:04:00 Kristofer Cross [facility] RUBELLA ANTIBODY, IGG 2020-01-19 15:04:00 Kristofer Cross [facility] RUBEOLA ANTIBODY IGG 2020-01-19 15:04:00 Kristofer Cross [facility] VARICELLA ZOSTER ANTIBODY, 2020-01-19 15:04:00 Kristofer Cross [facility] IGG [facility] R & L CATH / CORONARY 2020-01-19 13:47:00 Brian Browning [facility] ANGIOS (+/- LV) [facility] PROTHROMBIN TIME/INR 2020-01-19 11:00:00 [facility] US BREAST BILATERAL 2020-01-19 09:10:00 Kristofer Cross [facility] HEPATIC FUNCTION PANEL 2020-01-19 04:11:00 [facility] CALCIUM, IONIZED 2020-01-19 04:11:00 [facility] COMPREHENSIVE METABOLIC 2020-01-19 04:11:00 [facility] PHOSPHORUS 2020-01-19 04:11:00 [facility] B-TYPE NATRIURETIC FACTOR 2020-01-19 04:11:00 [facility] ALDOSTERONE 2020-01-19 04:11:00 [facility] RENIN, PLASMA 2020-01-19 04:11:00 [facility] METANEPHRINES 2020-01-19 04:11:00 [facility] MAGNESIUM 2020-01-19 04:11:00 [facility] CBC W/PLT COUNT & AUTO 2020-01-19 04:11:00 [facility] CT ABDOMEN WITHOUT IV 2020-01-19 00:40:00 [facility] CONTRAST [facility] US RENAL COMPLETE 2020-01-19 00:20:00 [facility] PREPARE LEUKO-REDUCED 2020-01-18 23:54:00 [facility] PLATELETS [facility] URINALYSIS W/ MICROSCOPIC 2020-01-18 20:49:00 [facility] SODIUM, RANDOM URINE 2020-01-18 20:49:00 [facility]eland [facility] PROTEIN, RANDOM URINE 2020-01-18 20:49:00 [facility] CREATININE, RANDOM URINE 2020-01-18 20:49:00 [facility] EOSINOPHIL SMEAR, URINE 2020-01-18 20:49:00 [facility] 2020-01-18 18:31:51 Provider [facility] - SCAN Scanning [facility] TRANSFUSE LEUKO-REDUCED RED 2020-01-18 13:21:26 [facility] BLOOD CELLS [facility] NM MYOCARDIAL PERFUSION 2020-01-18 09:20:00 [facility]ly [facility] (REST & STRESS) Medical C enter TREADMILL 2020-01-18 08:57:35 Unknown, Hl7 [facility] TOLERANCE(NON-NUCLEAR Medical Ce nter TREADMILL) ECG 12-LEAD 2020-01-18 08:46:42 Unknown, Hl7 [facility] BASIC METABOLIC PANEL (7) 2020-01-18 06:10:00 Juana [facility] MAGNESIUM 2020-01-18 06:10:00 [facility] T SPOT TB 2020-01-18 06:10:00 Miguel Angel [facility] HEPATIC FUNCTION PANEL 2020-01-18 06:10:00 Roscoe Ahmadi [facility] CBC W/PLT COUNT & AUTO 2020-01-18 06:10:00 Juana [facility] DIFFERENTIAL [facility] (CELLAVISION MANUAL DIFF) 2020-01-18 06:10:00 Juana [facility] ECG 12-LEAD 2020-01-17 11:05:03 Brian Browning [facility] REPORT OF PROCEDURE - 2020-01-17 09:11:[address] [facility] ENDOSCOPY [facility] REPORT OF PROCEDURE - 2020-01-17 08:39:[address] [facility] ENDOSCOPY [facility] TISSUE EXAM 2020-01-17 08:15:00 George [facility] TRANSFUSE LEUKO-REDUCED 2020-01-17 08:04:58 Juana [facility] UPPER ENDOSCOPY,BIOPSY 2020-01-17 08:00:00 George, [facility] COLONOSCOPY 2020-01-17 08:00:00 Doris [facility] PROTHROMBIN TIME/INR 2020-01-17 03:56:00 Jacquelin Mary [facility] BASIC METABOLIC PANEL (7) 2020-01-17 03:56:00 [place] [facility] MAGNESIUM 2020-01-17 03:56:00 [facility] CBC W/PLT COUNT & AUTO 2020-01-17 03:56:00 [facility] (CELLAVISION MANUAL DIFF) 2020-01-17 03:56:00 [place] [facility] TRANSFUSION SERVICE REPORT 2020-01-16 18:00:27 ProviderBozena [facility] BLOOD CULTURE 2020-01-16 12:25:00 Shady Gonzáles [facility] LACTATE DEHYDROGENASE (LDH) 2020-01-16 12:24:00 Iván [facility] RETICULOCYTE COUNT 2020-01-16 12:23:00 Iván [facility] BLOOD CULTURE 2020-01-16 11:25:00 [facility] ANTIGEN WITH HIV-1/2 2020-01-16 11:25:00 Shady Gonzáles [facility] VITAMIN B12 AND FOLATE 2020-01-16 11:25:00 Iván [facility] HAPTOGLOBIN 2020-01-16 11:25:00 [facility]BD[facility] WITH DOPPLER 2020-01-16 06:30:[address] [facility] PROTHROMBIN TIME/INR 2020-01-16 03:38:00 Graciela Stone [facility] HEPATIC FUNCTION PANEL 2020-01-16 03:38:00 Ramone [facility] BASIC METABOLIC PANEL (7) 2020-01-16 03:38:00 AriasLeena [facility] MAGNESIUM 2020-01-16 03:38:00 Leena Arias [facility] CBC W/PLT COUNT & AUTO 2020-01-16 03:38:00 [facility] DRUG SCREEN, URINE, 2020-01-15 21:52:00 Shady Gonzáles [facility] TRANSPLANT [facility] BLOOD TYPING, AUTOMATED 2020-01-15 18:16:00 Shady Gonzáles [facility] CT CHEST WITHOUT IV 2020-01-15 17:54:00 EliecerShady davidson [facility] XR CHEST 2 VIEWS 2020-01-15 16:57:00 EliecerShady davidson [facility] XR MANDIBLE 4 VIEWS MIN 2020-01-15 16:39:00 Shady Gonzáles [facility] VITAMIN D, 25-HYDROXY 2020-01-15 16:17:00 EliecerShady davidson [facility] COMPREHENSIVE METABOLIC 2020-01-15 16:17:00 Shady Gonzáles [facility] BILIRUBIN, DIRECT 2020-01-15 16:17:00 EliecerShady davidson [facility] CALCIUM, IONIZED 2020-01-15 16:17:00 EliecerShady davidson [facility] ZINC 2020-01-15 16:17:00 EliecerShady davidson [facility] ANTI-NUCLEAR ANTIBODY (REILLY) 2020-01-15 16:17:00 EliecerShady davidson [facility] ACTIN (SMOOTH MUSCLE) 2020-01-15 16:17:00 EliecerShady davidson [facility] ANTIBODY, IGG [facility] MITOCHONDRIA M2 ANTIBODY 2020-01-15 16:17:[address] [facility] (IGG) [facility] IRON, TIBC, % SAT. (WITHOUT 2020-01-15 16:17:[address] [facility] FERRITIN) [facility] FERRITIN 2020-01-15 16:17:00 Shady Gonzáles [facility] TRANSFERRIN 2020-01-15 16:17:00 Shady Gonzáles [facility] [id number]\\, SERUM 2020-01-15 16:17:00 Shady Gonzáles [facility] CERULOPLASMIN 2020-01-15 16:17:00 Shady Gonzáles [facility] ALPHA FETOPROTEIN (AFP), 2020-01-15 16:17:[address] [facility] TUMOR MARKER [facility] CARCINOEMBRYONIC ANTIGEN 2020-01-15 16:17:[address] [facility] (CEA) [facility] CARBOHYDRATE ANTIGEN 19-9 2020-01-15 16:17:[address] [facility] (CA 19-9) [facility] HEMOGLOBIN A1C 2020-01-15 16:17:00 Shady Gonzáles [facility] TSH 2020-01-15 16:17:00 Shady Gonzáles [facility] T3 2020-01-15 16:17:00 Shady Gonzáles [facility] T4 2020-01-15 16:17:00 Shady Gonzáles [facility] ETHANOL 2020-01-15 16:17:00 Shady Gonzáles [facility] FIBRINOGEN 2020-01-15 16:17:00 Shady Gonzáles [facility] PROTHROMBIN TIME/INR 2020-01-15 16:17:00 Shady Gonzáles [facility] APTT 2020-01-15 16:17[facility] IGM 2020-01-15 16:17[facility]TIGEN 2020-01-15 16:17:00 EliecerShady davidson [facility] HEPATITIS B SURFACE 2020-01-15 16:17:00 [facility] HEPATITIS B CORE ANTIBODY, 2020-01-15 16:17:[address] [facility] TOTAL [facility] HEPATITIS B CORE ANTIBODY, 2020-01-15 16:17:00 EliecerShady davidson [facility] IGM [facility] HEPATITIS C ANTIBODY 2020-01-15 16:17:[address] [facility] RPR 2020-01-15 16:17:00 Shady Gonzáles [facility] CYTOMEGALOVIRUS ANTIBODY, 2020-01-15 16:17:00 EliecerShady davidson [facility] IGG [facility] CYTOMEGALOVIRUS ANTIBODY, 2020-01-15 16:17:00 Eliecer [facility] IGM [facility] EBV ANTIBODY, IGM 2020-01-15 16:17:[address] [facility] TYPE AND SCREEN, AUTOMATED 2020-01-15 16:17:00 Eliecer [facility] 2D ECHO W/ DOPPLER 2020-01-15 14:45:25 Ren Hernandez [facility] (CW/PW/COLOR) [facility] CAROTID DOPPLER BILATERAL 2020-01-15 14:41:[address] [facility] SODIUM, RANDOM URINE 2020-01-15 12:46:00 Graciela Stone [facility] CREATININE, RANDOM URINE 2020-01-15 12:46:00 Graciela Stone [facility] I [facility] AMMONIA 2020-01-15 08:32:00 Graciela Stone [facility] HEPATITIS PANEL, ACUTE 2020-01-15 08:32:00 Graciela Stone [facility] BASIC METABOLIC PANEL (7) 2020-01-15 03:56:00 Graciela Stone [facility] PROTHROMBIN TIME/INR 2020-01-15 03:56:00 [facility]EL 2020-01-15 03:56:00 Graciela Stone [facility] MAGNESIUM 2020-01-15 03:56:00 Graciela Stone [facility] URIC ACID 2020-01-15 03:56:00 Shady Gonzáles [facility] GAMMA GLUTAMYL TRANSFERASE 2020-01-15 03:56:00 Shady Gonzáles [facility] (GGT) [facility] PHOSPHORUS 2020-01-15 03:56:00 Eliecer [facility] LIPID PANEL 2020-01-15 03:56:00 Eliecer [facility] CBC W/PLT COUNT & AUTO 2020-01-15 03:56:00 [facility]FF[facility] 2020-01-15 03:56:00 Graciela Stone [facility] BASIC METABOLIC PANEL (7) 2020-01-14 21:59:00 Graciela Stone [facility] PROTHROMBIN TIME/INR 2020-01-14 21:59:00 [facility]EL 2020-01-14 21:59:00 Graciela Stone [facility] CBC W/PLT COUNT & AUTO 2020-01-14 21:59:00 [facility] SARS-COV2/RT-PCR ([facility] & 2020-01-14 19:28:00 Tameka Hunter [facility] I [facility] - REF LABS) [facility] BASIC METABOLIC PANEL (7) 2020-01-03 14:34:00 Kadie Larry CH I [facility] HEPATIC FUNCTION PANEL 2020-01-03 14:34:00 Kadie Larry [facility] PROTHROMBIN TIME/INR 2020-01-03 14:34:[address] [facility] ALPHA FETOPROTEIN (AFP), 2020-01-03 14:34:[address] [facility] - TUMOR MARKER [facility] CBC W/PLT COUNT & AUTO 2020-01-03 14:34:00 LarryKadie mcdermott [facility] DI[facility] Plan of Care Planned Activity Planned Date Details Comments Source Future Scheduled 2030-01-[address] [facility] Test 00:00:00 malignant neoplasm of [facility] colon (procedure) [code = 790243629] Future Scheduled 2023-01-[address] [facility] Test 00:00[facility]00 (procedure) [code = Medical Center 70992601] Future Scheduled 2020-04-27 INFLUENZA VACCINE [place] [facility] [facility] 00:00:00 [code = INFLUENZA VACCINE] Future Scheduled 2020-03-28 INFLUENZA VACCINE (#1) [facility]00 [code = INFLUENZA Medical Ce nter VACCINE (#1)] Future Scheduled 2019-07-28 Medicare IPPE (WELCOME [facility] Test 00:00:00 TO MEDICARE) [code = Medical Center Medicare IPPE (WELCOME TO MEDICARE)] Future Scheduled 2019 65+ PNEUMOCOCCAL [place] [facility] Test 00:00:00 VACCINE (1 of 2 - PCV13) [code = 65+ PNEUMOCOCCAL VACCINE (1 of 2 - PCV13)] Future Scheduled 2019 [address]OCCAL [address] Test 00:00:00 LOW/MEDIUM RISK (1 of Medica l Center 2 - PCV13) [code = PNEUMOCOCCAL 65+ LOW/MEDIUM RISK (1 of 2 - PCV13)] Future Scheduled 2004 BREAST CANCER [place] [facility] 00:00:00 SCREENING [code = BREAST CANCER SCREENING] Future Scheduled 2004 COLONOSCOPY SCREENING [facility] Test 00:00:00 [code = COLONOSCOPY SCREENING] Future Scheduled 2004 SHINGLES VACCINES (#1) [place] [facility] Test 00:00:00 [code = SHINGLES VACCINES (#1)] Future Scheduled 1975 [facility] Test 00:00:00 malignant neoplasm of cervix (procedure) [code = 466866038] Future Scheduled [address] [facility] [facility] Test 00:00:00 malignant neoplasm of [facility]ica l Center cervix (procedure) [code = 802378510] Future Scheduled [address] [facility] Test 00:00:00 malignant neoplasm of [facility] breast (procedure) [code = 937834281] Encounters Start End Encounter Admission Attending Care Care Encounter Source Date/Time Date/Time Type Type Clinicians Facility Department ID 2020-02-21 2020-02-21 Outpatient Rafia Sanford [id number] 16:00:00 16:00:00 [facility] 2020-02-14 2020-02-14 Outpatient Rafia Moratayat [id number] 10:00:00 10:00:00 [facility] Medicine Outpati ent Clinics 2020-02-03 2020-02-03 Outpatient Rafia Moratayat [id number] 11:48:00 11:48:00 [facility] Medicine Medicine Outpati ent Clinics 2020-01-13 2020-01-13 Outpatient Rafia Martinezosport [id number] 14:40:00 14:40:00 [facility] Medicine Outpati ent Clinics 2020-01-03 2020-01-03 Transition Edgardo Grovesyahaira [id number] 00:00:00 00:00:00 of Care Aye Mcmulleny [id number] [place] [id number] 2019-12-28 2019-12-31 [facility] Yahir Borden [facility] [id number] 21:39:45 13:10:00 Encounter Jacklyn Lewis Maude [id number] [place] [id number] [place] [id number] 2019-11-03 2019-11-03 Outpatient Rafia Moratayat [id number] 13:20:00 13:20:00 [facility] 2019-09-10 2019-09-10 Outpatient Rafia Moratayat [id number] 09:30:00 09:30:00 [facility] 2019-08-31 2019-08-31 Outpatient Rafia Moratayat [id number] 08:00:00 08:00:00 [facility] Clinics 2019-08-24 2019-08-24 Outpatient Rafia Moratayat [id number] 10:41:00 10:41:00 [facility] 2019-08-19 2019-08-19 Outpatient Rafia Moratayat [id number] 13:00:00 13:00:00 [facility] Results Test Description Test Time Test Comments [...] OR = 60 L (test code = 5793392) mL/min/1.73m2 eGFR If Africn Am (test 37 > OR = 60 L code = 6250220) mL/min/1.73m2 BUN/Creatinine Ratio 14 6- 22 (calc) (test code = 1265306) Sodium (test code = 138 mmol/L 135-372 6407971) Potassium, Serum (test 4.4 mmol/L 3.5-5.3 code = 4568470) Chloride (test code = 106 mmol/L 98-643 0585095) Carbon Dioxide, Total 23 mmol/L 20-32 (test code = 7485374) Calcium, Serum (test 8.7 mg/dL 8.6-10.4 code = 20101125) Protein, Total, Serum 5.7 g/dL 6.1-8.1 L (test code = 20101202) Albumin (test code = 3.1 g/dL 3.6-5.1 L ) GLOBULIN (QUEST) (test 2.6 1.9- 3.7 g/dL code = 2032289) (calc) Albumin Globulin Ratio 1.2 1.0- 2.5 [...] Performing Organization Information: Site ID: JOSHUA Name: [employer] [facility] Address: [address] [place] [address] Director: Alonso Carrasco Lab Interpretation Abnormal (test code = 92411-0) [facility]il[facility], [id number] 05:00:00 Test Item Value Reference Range Interpretation Comments Bilirubin, Total (test 3.8 mg/dL 0.2-1.2 H code = 20101204) Bilirubin, Direct (test 1.2 mg/dL < OR = 0.2 H code = 20101216) Bilirubin, Indirect 2.6 0.2- 1.2 mg/dL H (test code = 5823696) (calc) VALENTE (test code = VALENTE) FASTING:YESFASTING: YES RAC (test code = RAC) Performing Organization Information: Site ID: [facility] Name: [employer] [facility] Address: [address] [place] [address] Director: Alonso Carrasco Lab Interpretation Abnormal (test code = 31301-3) [facility] with platelet count + automated [id number] 05:00:00 Test Item Value Reference Interpretation Comments [...] MPV (test code = 11.6 fL 7.5-12.5 4251664) # Neutros (test 1480 1,500 - 7,800 [...] RAC) Organization Information: Site ID: RGA Name: [employer] Lab Address: [address] [place] [address] Director: Alonso Carrasco Lab Interpretation Abnormal (test code = 15716-2) [facility] DistrictProthrombin time/[id number] 05:00:00 Test Item Value Reference Range Interpretation Comments INR (test code = 1.3 H Reference R von ) 0.9-1.1Moderate -i ntensity Warfar in Therapy 2.0-3.0Higher-i nt ensity Warfarin Therapy 3.0-4 .0 PT (test code = 13.3 9.0- 11.5 sec H For more ) information on this test, go to:[email or web address] ti [email or web address] Solutionsdiagnos [email or web address]/faq/[email or web address] 04 VALENTE (test code = FASTING:YESFASTING VALENTE) : YES RAC (test code = Performing RAC) Organization Information: Site ID: RGA Name: [employer] Lab Address: [address] [place] [address] Director: Alonso Carrasco Lab Interpretation Abnormal (test code = 25827-5) [facility] DistrictMISCELLANEOUS LAB [id number] 12:14:00 Test Item Value Reference Range Interpretation Comments SCAN RESULT (test code = 4291837) Miscellaneous lab [id number] 12:14:00Scan ResultQUEST NON-INTERFACED LABMayers Memorial Hospital DistrictMagnesium2020-07-21 13:17:00 Test Item Value Reference Range Interpretation Comments Magnesium (test code = 1.8 mg/dL 1.6-2.6 48897-9) VALENTE (test code = VALENTE) Java Sql Developer ID - LM Lab Interpretation (test Normal code = 80885-2) [facility] DistrictMAGNESIUM2020-07-21 13:17:00 Test Item Value Reference Range Interpretation Comments MAGNESIUM (BEAKER) (test code = 1.8 mg/dL 1.6-2.6 627) Java Sql Developer ID - LMCOMPREHENSIVE METABOLIC [id number] 13:17:00 Test Item Value Reference Range Interpretation [...] S NOT APPLICABLE FOR DIALYSIS PATIEN TS. Java Sql Developer ID - LMSpecimen moderately ictericBILIRUBIN, [id number] 13:17:00 Test Item Value Reference Range Interpretation Comments BILIRUBIN DIRECT (BEAKER) (test 2.5 mg/dL 0.1-0.5 H code = 706) Java Sql Developer ID - LMPROTHROMBIN TIME/[id number] 13:05:00 Test Item Value Reference Range Interpretation [...] heart valves.CBC with platelet count + automated [id number] 12:59:00 Test Item Value Reference Range Interpretation [...] K/CU MM L MPV (test code = 17237-5) 10.0 fL 9.4-12.3 nRBC (test code = [...] 2801) Lab Interpretation (test code = Abnormal 87058-3) [facility] DistrictCB W/PLT COUNT & AUTO [id number] 12:59:00 Test Item Value Reference Range Interpretation [...] PERCENT (BEAKER) (test code = 2801) PLATELET [id number] 15:30:00 Test Item Value Reference Range Interpretation Comments Platelet Estimate (test DECREASED ADEQUATE A code = 65018-6) VALENTE (test code = VALENTE) FASTING:YESFASTING: YES RAC (test code = RAC) Performing Organization Information: Site ID: RGA Name: [place] [facility] Lab Address: [address] [place] [address] Director: Alonso Carrasco Lab Interpretation (test Abnormal code = 52590-8) [facility] DistrictMetanephrines2020-07-06 10:36:00 Test Item Value Reference Interpretation Comments Range Metanephrine (test 46 pg/mL < OR = 57 This mushtaq t was developed code = 2610801) and its anal ytical performance characteristics havebeen determined by [facility].It h as not been cleared or appr jean-claude by FDA. This assay has been validatedpursua nt to the CLIA regulation s and is used for clinic al purposes. Normetanephrine 213 pg/mL < OR = 148 H This test w as developed (test code = and its analyti steven 6587864) performance characteristics havebeen determined by [facility].It h as not been cleared or appr jean-claude by FDA. This assay has been validatedpursua nt to the CLIA regulation s and is used for clinic al purposes. Total Metanephrine 259 pg/mL < OR = 205 H Elevatio ns > 4-fold upper (test code = reference range : strongly 8909166) suggestive of apheochromocyto ma(1). Elevations >1 - 4-fold upper reference range:significa nt but not diagnostic, may be due to medications or stress. Suggestrunning 24 hr urine fractionated me tanephrines and serum Chrom ogranin A forconfirmation . Reference: (1) Latrice Alva al, Plasma Delivery Architect mogranin A or Urine FractionatedMet anephrines Follow-Up Testi ng Improves the Diagnostic Accuracy of PlasmaFractiona madai Metanephrines f or Pheochromocytom a. The Journal of ClinicalEndocri nology and Metabolism 93 ( 1),91-95, 2008. For addit ional information, pl ease refer tohttp://educat ion.Printi.Liibook/f aq/MetFract Free(This link is being provided for informational/e ducational purposes only.) This test was developed a nd its analytical perf ormance characteristics havebeen determined by [facility] [place].It h as not been cleared or appr jean-claude by FDA. This assay has been validatedpursua nt to the CLIA regulation s and is used for clinic al purposes. VALENTE (test code = Performing Lab VALENTE) EZ [employer] [facility] [address] [place] [address] I Shashank ADRIAN, PhD, AMINA Lab Interpretation Abnormal (test code = 90215-8) [facility] DistrictCatecholamines, Fractionated, 24hr [id number] 11:55:00 Test Item Value Reference Interpretation Comments Range TOTAL VOLUME (test 1000 mL code = 4448534) Epinephrine,24 Hr <2 2- 24 mcg/24 h L Result b elow clinical Ur (test code = reportable r von for ) this analyte, w hich is 2 mcg/L.Repo rted result was calc ulated using 2 mcg/L. This test was develo ped and its analyti steven performance characteristics havebeen determ ined by [employer] [facility] .It has not been cl eared or approved by FDA. This assay has been validatedpursua nt to the CLIA regula tions and is used for clinical purpos es. Norepinephrine 9 15- 100 mcg/24 L This test was (test code = h developed and i ts ) analytical performance characteristics havebeen determ ined by [employer] .It has not been cl eared or approved by FDA. This assay has been validatedpursua nt to the CLIA regula tions and is used for clinical purpos es. Calculated Total 9 26- 121 mcg/24 L This mushtaq t was E+Ne (test code = h developed and its 20190907) analytical performance characteristics havebeen determ ined by [employer] .It has not been cl eared or [...] by [facility] .It has not been cl eared or approved by FDA. This assay has been validatedpursua nt to the [place] regula [facility]udrain [facility] and is used for clinical purpos es. Creatinine,24 Hr 0.88 0.50- 2.15 Urin (test code = g/24 h ) VALENTE (test code = Performing Lab VALENTE) [employer] [facility] [address] [place] [address], [place] [address] Mark Encarnacion MD, PhD, AMINA Lab Interpretation Abnormal (test code = 65687-7) [facility] DistrictMISCELLANEOUS LAB [id number] 12:33:00 Test Item Value Reference Range Interpretation Comments SCAN RESULT (test code = 4941609) [id number] 16:28:00 Test Item Value Reference Range Interpretation Comments Lab Interpretation (test code = Normal 06008-9) [facility] DistrictMetanephrines, 24 hour [id number] 12:57:00 Test Item Value Reference Interpretation Comments Range TOTAL VOLUME (test 1000 mL code = 9090979) Metanephrine (test 205 90- 315 This mushtaq t was code = 6780163) mcg/24 h developed an d its analytical perf ormance characteristics havebeen determ ined by [facility] .It has not been cleare d or approved by FDA . This assay has been validatedpursua nt to the CLIA regula tions and is used for clinical purpos es. Normetanephrine 657 122- 246 This test w as (test code = mcg/24 h developed and i ts 20191029) analytical perf ormance characteristics havebeen determ ined by [employer] [facility] .It has not been cleare d or approved by FDA . This assay has been validatedpursua nt to the [place] regula tiaudrain medical center and is used for clinical purpos es. [...] perf ormance characteristics havebeen determ ined by [employer] [facility] .It has not been cleare d or approved by FDA . This assay has been validatedpursua nt to the CLIA regula tions and is used for clinical purpos es. VALENTE (test code = Performing Lab VALENTE) EZ [employer] [facility] [address] [place] [address] I Shashank ADRIAN, PhD, AMINA Lab Interpretation Abnormal (test code = 76076-2) [facility] DistrictCalcium, [id number] 05:42:00 Test Item Value Reference Range Interpretation Comments Calcium, Ion (test code = 1993-) 1.11 mmol/L 1.12-1.27 L pH, Blood (test code = 12324-9) 7.41 Lab Interpretation (test code = Abnormal 94747-8) [facility] DistrictCALCIUM, [id number] 05:42:00 Test Item Value Reference Range Interpretation Comments CALCIUM IONIZED (BEAKER) (test 1.11 mmol/L 1.12-1.27 L code = 698) PH, BLOOD (BEAKER) (test code = 7.41 1810) COMPREHENSIVE METABOLIC [id number] 04:57:00 Test Item Value Reference Range Interpretation [...] S NOT APPLICABLE FOR DIALYSIS PATIEN TS. Java Sql Developer ID - BSSpecimen moderately ictericHepatic function [id number] 04:53:00 Test Item Value Reference Range Interpretation Comments Protein, Total (test code 5.7 6.0- 8.3 gm/dL L = 2885-2) Albumin (test code = 3.4 g/dL 3.5-5 L 85758-4) Total Bilirubin (test 6.9 mg/dL 0.2-1.2 H code = 1974-2) Bilirubin, Direct (test 2.2 mg/dL 0.1-0.5 H code = 1967-7) Alkaline Phosphatase 58 U/L 40-150 (test code = 6768-6) AST (test code = 1920-8) 36 U/L 5-34 H ALT (test code = 1742-6) 13 U/L 6-55 VALENTE (test code = VALENTE) Java Sql Developer ID - BSSpecimen moderately icteric Lab Interpretation (test Abnormal code = 85773-4) [facility] DistrictPhosphorus2020-07-01 04:53:00 Test Item Value Reference Range Interpretation Comments Phosphorus (test code = 3.2 mg/dL 2.3-4.7 2777-1) VALENTE (test code = VALENTE) Java Sql Developer ID - BS Lab Interpretation (test Normal code = 46110-8) [facility] DistrictPHOSPHORUS2020-07-01 04:53:00 Test Item Value Reference Range Interpretation Comments PHOSPHORUS (BEAKER) (test code = 3.2 mg/dL 2.3-4.7 604) Java Sql Developer ID - [id number] 04:53:00 Test Item Value Reference Range Interpretation Comments MAGNESIUM (BEAKER) (test code = 1.7 mg/dL 1.6-2.6 627) Java Sql Developer ID - BSHEPATIC FUNCTION [id number] 04:53:00 Test Item Value Reference Range Interpretation [...] (test code = 13 U/L 6-55 347) Java Sql Developer ID - BSSpecimen moderately ictericCBC W/PLT COUNT & AUTO [id number] 04:42:00 Test Item Value Reference Range Interpretation [...] PERCENT (BEAKER) (test code = 2801) PROTHROMBIN [id number] 04:36:00 Test Item Value Reference Range Interpretation [...] [facility] DistrictB[facility] FLUID CULTURE + GRAM [id number] 12:05:00 Test Item Value Reference Range Interpretation Comments CULTURE (BEAKER) (test No growth code = 1095) GRAM STAIN RESULT <1+ White blood cells (BEAKER) (test code = seen 1123) GRAM STAIN RESULT No organisms seen (BEAKER) (test code = 39102) Manual [id number] 07:35:00 Test Item Value Reference Range Interpretation [...] Poikilocytes (test code = 2+ moderate 966) Clever Cells (test code = 2+ moderate 474) Artifact (test code = Present 3432) Platelet Conc (test code Decreased = 3438) VALENTE (test code = VALENTE) Java Sql Developer ID - [id number] ID - Maria Del Carmen Quintana comments: Slide comments: Lab Interpretation (test Abnormal code = 29473-5) [facility] W/PLT COUNT & AUTO [id number] 07:35:00 Test Item Value Reference Range Interpretation [...] CONCENTRATION Decreased (CELLAVISION)(BEAKER) (test code = 3438) Java Sql Developer ID - [id number] ID - Maria Del Carmen Davidsonwest comments: Slide comments:Basic Metabolic [id number] 06:24:00 Test Item Value Reference Range Interpretation Comments Sodium (test code = 140 meq/L 120-680 3231-2) Potassium (test code 3.4 meq/L 3.5-5.1 L = 2823-3) Chloride (test code = 105 meq/L 98-107 5-0) CO2 (test code = 25 meq/L 22-29 2027-9) BUN (test code = 31 mg/dL 7-21 H 3094-0) Creatinine (test code 2.35 mg/dL 0.57-1.25 H = 2160-0) Glucose (test code = 108 mg/dL 70-105 H 2345-7) Calcium (test code = 8.7 mg/dL 8.4-10.2 00365-5) EGFR (test code = 21 mL/min/1.73 [place] [address]-6) NOT ACCURATE CREATININE CLEARANCE IN PREDICTING GLOMERULAR FILTRATION RATE . ESTIMATED GFR I S NOT APPLICABLE FOR DIALYSIS PATIENTS. VALENTE (test code = VALENTE) Java Sql Developer ID - MIKEDORIAN Lucinda moderately icteric Lab Interpretation Abnormal (test code = 15348-3) [facility] METABOLIC [id number] 06:24:00 Test Item Value Reference Range Interpretation [...] S NOT APPLICABLE FOR DIALYSIS PATIEN TS. Java Sql Developer ID - PIDORIAN LSpecimen moderately ictericHEPATIC FUNCTION [id number] 06:23:00 Test Item Value Reference Range Interpretation [...] (test code = 13 U/L 6-55 347) Java Sql Developer ID - MITCH LSpecimen moderately [id number] 06:22:00 Test Item Value Reference Range Interpretation Comments MAGNESIUM (BEAKER) (test code = 1.8 mg/dL 1.6-2.6 627) Java Sql Developer ID Mercedes MEYER LPROTHROMBIN TIME/[id number] 04:22:00 Test Item Value Reference Range Interpretation [...] 5 days 6463-4) [facility] DistrictBLOOD [id number] 23:00:00 Test Item Value Reference Range Interpretation Comments CULTURE (BEAKER) (test No growth in 5 days code = 1095) BLOOD [id number] 23:00:00 Test Item Value Reference Range Interpretation Comments CULTURE (BEAKER) (test No growth in 5 days code = 1095) DLCO (single breath diffusion)2020-01-24 10:41:00Epifanio Giles, OCCUPATIONAL THER, FIELD CONTACT TECHNICIAN 01/24/2020 10:52 [facility] PFT CHARTING REPORT Infection Control/Hand Hygiene procedures followed throughout the encounter with patient: YesPatient Identification Method: Patient name verified on armband, and Medical record on armband, Is the order complete?: Yes Account ID#: [id number] Name: Cici Calderon Birthdate: 1955 Age: 64 [...] without adverseoutcome.[facility] DistrictPulmonary Funct Lab [id number] 10:41:00Epifanio Giles, OCCUPATIONAL THER, [facility] 01/24/2020 10:52 [facility] PFT CHARTING REPORT Infection Control/Hand Hygiene procedures followed throughout the encounter with patient: YesPatient Identification Method: Patient name verified on armband, and Medical record on armband, Is the order complete?: Yes Account ID#: [id number] Name: Cici Calderon Birthdate: 1955 Age: 64 [...] the lab without adverseoutcome.[facility] DistrictLu [id number] 10:41:00Epifanio Giles, OCCUPATIONAL THER, FIELD CONTACT TECHNICIAN 01/24/2020 10:52 [facility] PFT CHARTING REPORT Infection Control/Hand Hyg iene procedures followed throughout the encounter with patient: YesPatient Identification Method: Patient name verified on armband, and Medical record on armband, Is the order complete?: Yes Account ID#: [id number] Name: Cici Calderon Birthdate: 1955 Age: 64 [...] WALK(FOR LUNG TRANSPLANT ONLY)2020-01-24 10:20:00Janina Meehan, JUVENAL, FIELD CONTACT TECHNICIAN 01/24/2020 2:39 [facility] PFT CHARTING REPORT Infection Control/Hand Hygiene procedures followed throughout the encounter with patient: YesPatient Identification Method: Patient name verified on armband, and Medical record on armband, Is the order complete?: Account ID#: [id number] Name: Cici Calderon Birthdate: 1 09/08/1954 Age: [...] lab without adverse outcome.[facility] DistrictU/S, [id number] 09:43:00 Referring: Dr. Rowdy Christie to be ordered:->Body Fluid Culture (w/Gram Stain, C\\T\\S)Labs marko ordered:->Cell CountReason for exam:->Acute Kidney Injury - rule out SBP - can remove volume of up to 4-5 L (given ANDERS)Should this be performed at the bedside?->YesFINAL REPORT Ultrasound guided paracentesis Clinical History: Ascites. Sedation: None. Animal Control Officer: Christine Ward PA-C Supervising Physician: Natan Chisholm MD Upholstery Auto Trimmer: None. Estimated Blood Loss: < 1 mL. [...] anesthesia was achieved with lidocaine, a 5 Khmer one-step catheter was advanced into theperitoneal cavity under ultrasound guidance. After completion of drainage, the catheter was removed.There was no evidence of complication. Impression:Successful ultrasound guided paracentesis. Signed:Natan Chisholm Verified Date/Time: 01/24/2020 09:43:05 Reading Location: [address] Ultrasound Reading Room US [id number] 09:43:00Interface, External Ris In - 01/24/2020 9:45 AM CDTFINAL REPORT Ultrasound guided paracentesis Clinical History: Ascites. Sedation: None. Animal Control Officer: Christine Ward PA-C Supervising Physician: Natan Chisholm MD Upholstery Auto Trimmer: None. Estimated Blood Loss: < 1 mL. [...] anesthesia was achieved with lidocaine, a 5 Khmer one-step catheter was advanced into the peritoneal cavity under ultrasound guidance. After completion of drainage, the catheter was removed. There was no evidence of complication. Impression:Successful ultrasound guided paracentesis. Signed: Natan Chisholm MDReport Verified Date/Time: 12/27 09:43:05 Reading Location: [address] Ultrasound [facility] JoseBASI METABOLIC [id number] 06:18:00 Test Item Value Reference Range Interpretation [...] S NOT APPLICABLE FOR DIALYSIS PATIEN TS. Java Sql Developer ID Mercedes RUTHERFORDpecimen moderately [id number] 05:38:00 Test Item Value Reference Range Interpretation Comments PHOSPHORUS (BEAKER) (test code = 2.8 mg/dL 2.3-4.7 604) Java Sql Developer ID - MITCH [id number] 05:38:00 Test Item Value Reference Range Interpretation Comments MAGNESIUM (BEAKER) (test code = 1.8 mg/dL 1.6-2.6 627) Java Sql Developer ID Mercedes MEYER LHEPATIC FUNCTION [id number] 05:38:00 Test Item Value Reference Range Interpretation [...] (test code = 11 U/L 6-55 347) Java Sql Developer ID Mercedes RUTHERFORDpecimen moderately ictericCALCIUM, [id number] 04:56:00 Test Item Value Reference Range Interpretation Comments CALCIUM IONIZED (BEAKER) (test 1.09 mmol/L 1.12-1.27 L code = 698) PH, BLOOD (BEAKER) (test code = 7.43 1810) PROTHROMBIN TIME/[id number] 04:48:00 Test Item Value Reference Range Interpretation [...] mechanical heart valves.CBC W/PLT COUNT & AUTO [id number] 04:36:00 Test Item Value Reference Range Interpretation [...] (BEAKER) (test code = 2801) Prepare Leuko-Red [id number] 23:54:00 Test Item Value Reference Range Interpretation Comments CROSSMATCH (test code = 2264) COMPATIBLE Unit ABO (test code = A Pos 7956889) UNIT NUMBER (test code = [id number] 934-0) Status (test code = 6327559) TX_TIMEINCHART Blood Bank Product (test code RED BLOOD CELLS = 2263) PRODUCT CODE (test code = U0301O36 933-2) [facility] DistrictRubeola antibody [id number] 18:06:00 Test Item Value Reference Range Interpretation Comments Rubeola Ab, 235 AU/mL REFERENCE RANGE : Igg (test code <13.50 AU/mL = 44127-0) AU/mL Interpretation ==== <13.50 Negative 13.50-16.49 Equivocal >16.49 Positive A posi tive result indicate s that the patient hasantibody to measles virus. It does notdifferentiat e between an acti ve or past infection. The clinical diagno sis must be interpr eted inconjunction w ith clinical signs and symptoms ofthe patient. For additional information, pl ease refer [email or web address] ion.[facility] stDiagnostics.c om/faq/ EPX650(This rosa k is being provided for informational/e ducatio nal purposes on ly.) VALENTE (test code Performing Lab = VALENTE) *QDID [employer] [facility] [address] [place] [address] Sudhakar Hargrove MD [facility] DistrictMitochondria M2 Antibody (IgG)2020-01-23 13:50:00 Test Item Value Reference Range Interpretation Comments Mitochondria M2 Ab <20.0 See Note: U Reference (test code = Range:NEGATIVE: ) < OR = 20.0EQUIVOCAL: 20.1-24.9POSITI V E: > OR = 25.0 VALENTE (test code = Performing Lab VALENTE) EZ [employer] [facility] [address] [place] [address] I Shashank ADRIAN, PhD, AMINA [facility] DistrictMumps antibody, [id number] 13:38:00 Test Item Value Reference Range Interpretation [...] (test Performing Lab code = VALENTE) *QDID [employer] [facility] [address] [place] [address] Sudhakar Hargrove MD [facility] DistrictCBC W/PLT COUNT & AUTO [id number] 12:26:00 Test Item Value Reference Range Interpretation [...] CONCENTRATION Decreased (CELLAVISION)(BEAKER) (test code = 3438) Java Sql Developer ID - [id number] ID - Charo Jordan comments: Slide comments: BASIC METABOLIC [id number] 07:18:00 Test Item Value Reference Range Interpretation [...] S NOT APPLICABLE FOR DIALYSIS PATIEN TS. Java Sql Developer ID - MITCH LSpecimen moderately [id number] 07:17:00 Test Item Value Reference Range Interpretation Comments MAGNESIUM (BEAKER) 1.6 mg/dL 1.6-2.6 Specimen slightly (test code = 627) hemolyzed Java Sql Developer ID - MITCH [id number] 07:17:00 Test Item Value Reference Range Interpretation Comments PHOSPHORUS (BEAKER) 2.4 mg/dL 2.3-4.7 Specimen slightly (test code = 604) hemolyzed Java Sql Developer ID - MITCH LHEPATIC FUNCTION [id number] 07:17:00 Test Item Value Reference Range Interpretation [...] Specimen slightly (test code = 347) hemolyzed Java Sql Developer ID - MITCH LSpecimen moderately ictericB-type Natriuretic Factor (BNP) 2020-01-23 06:55:00 Test Item Value Reference Range Interpretation Comments BNP (test code = 45740-8) 2179 pg/mL 0-100 H VALENTE (test code = VALENTE) Java Sql Developer ID - MITCH L Lab Interpretation (test Abnormal code = 15326-7) [facility] DistrictB-TYPE NATRIURETIC FACTOR (BNP)2020-01-23 06:55:00 Test Item Value Reference Range Interpretation Comments B-TYPE NATRIURETIC PEPTIDE 2179 pg/mL 0-100 H (BEAKER) (test code = 700) Java Sql Developer ID - MITCH MOSERLCIUM, [id number] 06:31:00 Test Item Value Reference Range Interpretation Comments CALCIUM IONIZED (BEAKER) (test 1.07 mmol/L 1.12-1.27 L code = 698) PH, BLOOD (BEAKER) (test code = 7.45 1810) PROTHROMBIN TIME/[id number] 06:00:00 Test Item Value Reference Range Interpretation [...] for patients wiht mechanical heart valves.Prepare Leuko-Red [id number] 23:54:00 Test Item Value Reference Range Interpretation Comments Unit ABO (test code = 0373726) O Pos UNIT NUMBER (test code = [id number] 934-0) Status (test code = 1987032) TX_TIMEINCHART Blood Bank Product (test code PLATELETS = 2263) PRODUCT CODE (test code = M1461O60 933-2) [facility] W/PLT COUNT & AUTO [id number] 10:35:00 Test Item Value Reference Range Interpretation [...] CONCENTRATION Decreased (CELLAVISION)(BEAKER) (test code = 3438) Java Sql Developer ID - [id number] ID - Lizett OverholtUser comments: Slide comments: [id number] 10:05:00 Test Item Value Reference Range Interpretation Comments Cortisol, Total (test code 1.6 ug/dL 3.7-19.4 L = 2755) VALENTE (test code = VALENTE) Java Sql Developer ID - MITCH L Lab Interpretation (test Abnormal code = 76069-2) [facility] DistrictCORTISOL2020-06-27 10:05:00 Test Item Value Reference Range Interpretation Comments CORTISOL, TOTAL (BEAKER) (test code 1.6 ug/dL 3.7-19.4 L = 2755) Java Sql Developer ID - MITCH LDirect AHG (KRISTI)/Direct [id number] 07:49:00 Test Item Value Reference Range Interpretation Comments Direct AHG-IGG (test code = 1006-6) NEGATIVE Direct AHG-C3B, C3D (test code = NEGATVIE 1003-3) [facility] DistrictABORH, [id number] 07:37:00 Test Item Value Reference Range Interpretation Comments ABO Grouping (test code = 2588) A Rh Factor (test code = 2589) POS [facility] DistrictCALCIUM, [id number] 06:31:00 Test Item Value Reference Range Interpretation Comments CALCIUM IONIZED (BEAKER) (test 1.10 mmol/L 1.12-1.27 L code = 698) PH, BLOOD (BEAKER) (test code = 7.44 1810) BASIC METABOLIC [id number] 06:20:00 Test Item Value Reference Range Interpretation [...] S NOT APPLICABLE FOR DIALYSIS PATIEN TS. Java Sql Developer MABLE RUTHERFORDpecimen moderately [id number] 06:12:00 Test Item Value Reference Range Interpretation Comments MAGNESIUM (BEAKER) (test code = 1.7 mg/dL 1.6-2.6 627) Java Sql Developer MABLE MEYER LHEPATIC FUNCTION [id number] 06:12:00 Test Item Value Reference Range Interpretation [...] (test code = 10 U/L 6-55 347) Java Sql Developer MABLE RUTHERFORDpecimen moderately ictericPROTHROMBIN TIME/[id number] 05:48:00 Test Item Value Reference Range Interpretation [...] is2.5-3.5 for patients wiht mechanical heart valves.Renin, [id number] 22:50:00 Test Item Value Reference Range Interpretation Comments PRA,LC/MS/MS 1.51 ng/mL/h 0.25-5.82 This test was developed (test code = and its analyti steven 3392511) performance characteristics havebeen determined by [facility].It h as not been cleared or approved by FDA. This as say has been validatedp ursuant to the CLIA reg ulations and is used for clinical purposes. VALENTE (test Performing Lab code = VALENTE) EZ [employer] [facility] [address] [place] [address] Mark Encarnacion MD, PhD, AMINA [facility] DistrictBody fluid cell count with [id number] 18:33:00 Test Item Value Reference Range Interpretation Comments Appearance (test code = 9335-1) Hazy Clear A Color (test code = 6824-7) Cele Colorless, Straw A RBCs (test code = 47655-5) 4000 <=1 /cu mm H Adjusted WBC Count (test code = 86 <=5 /cu mm H 22506-6) Lining Cells (test code = 1 <=1 /cu mm 27838-0) % Segs (test code = 75177-7) 7 % % Lymphs (test code = 42655-0) 83 % % Monos (test code = 31821-3) 10 % % Eos (test code = 25300-4) 0 % % Baso (test code = 29254-3) 0 % Container Body Fluid (test code Sterile Vial = 2873) Lab Interpretation (test code = Abnormal 52798-9) [facility] DistrictBODY FLUID CELL COUNT WITH [id number] 18:33:00 Test Item Value Reference Range Interpretation [...] = 2873) Peripheral Blood Smear - Hold [id number] 15:19:00 Test Item Value Reference Range Interpretation Comments Peripheral Smear Save (test code = saved 1815) [facility] DistrictPERIPHERAL BLOOD SMEAR - HOLD [id number] 15:19:00 Test Item Value Reference Range Interpretation Comments PERIPHERAL SMEAR SAVE (BEAKER) (test saved code = 1815) [id number] 14:41:00 Test Item Value Reference Interpretation Comments Range Aldosterone (test 22 ng/dL Adult Ref erence code = 6192977) Ranges for Aldosterone: Upright 8:00-10 :00 am < or = 28 ng/ dL Upright 4:00-6: 00 pm < or = 21 ng/ dL Supine 8:00-10 :00 am 3-16 ng/dL Th is test was developed a nd its analytical perf ormance characteristics havebeen determ ined by [facility] .It has not been cleare d or approved by FDA . This assay has been validatedpursua nt to the CLIA regula tions and is used for clinical purpos es. VALENTE (test code = Performing Lab VALENTE) EZ [employer] [place] [address] [place] [address] Mark Encarnacion MD, PhD, AMINA [facility] Spot [id number] 13:05:00 Test Item Value Reference Range Interpretation Comments T-Spot TB (test code = 90173-3) Negative Neg Ctrl Spot Count (test code = 0 81956-4) Panel A Spot (test code = 00338-3) 0 Panel B Spot (test code = 50823-9) [address] (test code = 0 45137-6) Scan Result (test code = 2431927) [facility] SPOT [id number] 13:05:00 Test Item Value Reference Range Interpretation Comments T-SPOT TB (BEAKER) (test code = Negative 1683) NEG CONTROL SPOT COUNT (BEAKER) 0 (test code = 1684) PANEL A SPOT (BEAKER) (test code = 0 1685) PANEL B SPOT (BEAKER) (test code = 0 1686) POS CONTROL SPOT CT (BEAKER) (test 0 code = 1687) SCAN RESULT (test code = 6780703) BLOOD [id number] 13:00:00 Test Item Value Reference Range Interpretation Comments CULTURE (BEAKER) (test No growth in 5 days code = 1095) BLOOD [id number] 12:00:00 Test Item Value Reference Range Interpretation Comments CULTURE (BEAKER) (test No growth in 5 days code = 1095) [id number] 10:25:00 Test Item Value Reference Range Interpretation Comments CORTISOL, TOTAL (BEAKER) (test code 5.1 ug/dL 3.7-19.4 = 2755) Java Sql Developer ID - TUAN CCOMPREHENSIVE METABOLIC [id number] 10:23:00 Test Item Value Reference Range Interpretation [...] S NOT APPLICABLE FOR DIALYSIS PATIEN TS. Java Sql Developer ID - TUAN CSpecimen moderately ictericVaricella zoster antibody, IgG 2020-01-21 10:15:00 Test Item Value Reference Range Interpretation Comments Varicella IgG (test 3.6 code = 15980-4) VALENTE (test code = VALENTE) VARICELLA ZOSTER RESULT INTERPRETATIONS: <=0.8 Al Nonreactive: Presumed non-immune to VZV 0.9-1.0 Al Equivocal >=1.1 Al Reactive: Presumed immune to VZV [facility] DistrictRubella antibody, [id number] 10:15:00 Test Item Value Reference Range Interpretation Comments Rubella IgG Quant (test 127.0 <8.0 IU/mL H code = 8014-3) VALENTE (test code = VALENTE) Rubella IgG Result Interpretation: </= 7.0 IU/mL Negative - Presumed non-immune 8.0 - 9.9 IU/mL Equivocal >= 10.0 IU/mL Positive - Presumed immune Lab Interpretation (test Abnormal code = 66162-3) [facility] DistrictRUBELLA ANTIBODY, [id number] 10:15:00 Test Item Value Reference Range Interpretation Comments RUBELLA IGG QUANTITATION (BEAKER) 127.0 IU/mL <8.0 H (test code = 572) Rubella IgG Result Interpretation: </= 7.0 IU/mL Negative - Presumed non- immune 8.0 - 9.9 IU/mL Equivocal >= 10.0 IU/mL Positive - Presumed immune VARICELLA ZOSTER ANTIBODY, [id number] 10:15:00 Test Item Value Reference Range Interpretation Comments VARICELLA ZOSTER IGG (AL) (BEAKER) 3.6 (test code = 3197) VARICELLA ZOSTER RESULT INTERPRETATIONS: <=0.8 Al Nonreactive: Presumed non-immune to VZV 0.9-1.0 Al Equivocal >=1.1 Al Reactive: Presumed immune to VZVReticulocyte [id number] 10:12:00 Test Item Value Reference Range Interpretation Comments % Retic (test code = 5.3 % 0.5-1.7 H 80617-8) VALETNE (test code = VALENTE) Java Sql Developer ID - [id number] Lab Interpretation (test Abnormal code = 84543-5) [facility] DistrictRETICULOCYTE [id number] 10:12:00 Test Item Value Reference Range Interpretation Comments RETICULOCYTE COUNT PCT (BEAKER) (test 5.3 % 0.5-1.7 H code = 575) Java Sql Developer ID - [id number] 10:06:00 Test Item Value Reference Range Interpretation Comments PHOSPHORUS (BEAKER) (test code = 3.1 mg/dL 2.3-4.7 604) Java Sql Developer ID - TUAN [id number] 10:06:00 Test Item Value Reference Range Interpretation Comments MAGNESIUM (BEAKER) (test code = 1.7 mg/dL 1.6-2.6 627) Java Sql Developer ID - TUAN CHEPATIC FUNCTION [id number] 10:06:00 Test Item Value Reference Range Interpretation [...] (test code = 12 U/L 6-55 347) Java Sql Developer ID - TUAN Mckeonecimen moderately ictericRAD, CHEST, [...] Walker Verified Date/Time: 01/21/2020 10:03:32 Reading Location: [facility] Radiology Reading Room XR chest 1 view portable / [id number] 10:03:00 Interface, External Ris In - 01/21/2020 [...] Walker Verified Date/Time: 01/21/2020 10:03:32 Reading Location: [facility] Radiology Reading Room [facility] W/PLT COUNT & AUTO [id number] 09:59:00 Test Item Value Reference Range Interpretation [...] PERCENT (BEAKER) (test code = 2801) PROTHROMBIN TIME/[id number] 09:53:00 Test Item Value Reference Range Interpretation [...] MDReport Verified Date/Time: 01/21/2020 07:51:30 Reading Location: [facility] Diagnostic Imaging Reading Room - [place] [address] 1129 MR abdomen without IV contrast 2020-01-21 [...] MDReport Verified Date/Time: 01/21/2020 07:51:30 Reading Location: [facility] Diagnostic Imaging Reading Room - [facility] F1 1129 [facility] Type and screen, [id number] 22:06:00 Test Item Value Reference Range Interpretation Comments ABO/RH AUTOMATED (BEAKER) (test A POSITIVE code = 2260) Ab Scrn (test code = 890-4) NEGATIVE [facility] DistrictRAD, CHEST, 1 VIEW, NON [id number] 21:16:00 Referring: Dr. Rowdy Zhang for exam:->JVD [...] MDReport Verified Date/Time: 01/20/2020 21:16:28 Reading Location: [facility] Trans[facility] Reading Room Cryptococcal [id number] 11:36:00 Test Item Value Reference Range Interpretation Comments Cryptococcal Antigen, Serum Negative Negative, Interference (test code = 57552-9) Lab Interpretation (test code Normal = 30846-7) [facility] DistrictCRYPTOCOCCAL [id number] 11:36:00 Test Item Value Reference Range Interpretation Comments CRYPTOCOCCAL ANTIGEN, SERUM Negative Negative, Interference (BEAKER) (test code = 1828) CBC W/PLT COUNT & AUTO [id number] 09:56:00 Test Item Value Reference Range Interpretation [...] CONCENTRATION Decreased (CELLAVISION)(BEAKER) (test code = 3438) Java Sql Developer ID - [id number] ID - Lizett OverholtUser comments: Slide comments: COMPREHENSIVE METABOLIC [id number] 05:46:00 Test Item Value Reference Range Interpretation [...] S NOT APPLICABLE FOR DIALYSIS PATIEN TS. Java Sql Developer ID - MITCH LSpecimen moderately [id number] 05:37:00 Test Item Value Reference Range Interpretation Comments PHOSPHORUS (BEAKER) (test code = 2.8 mg/dL 2.3-4.7 604) Java Sql Developer ID - MITCH [id number] 05:37:00 Test Item Value Reference Range Interpretation Comments MAGNESIUM (BEAKER) (test code = 1.9 mg/dL 1.6-2.6 627) Java Sql Developer ID - MITCH LHEPATIC FUNCTION [id number] 05:37:00 Test Item Value Reference Range Interpretation [...] (test code = 9 U/L 6-55 347) Java Sql Developer ID - MITCH RUTHERFORDpecimen moderately ictericPROTHROMBIN TIME/[id number] 04:53:00 Test Item Value Reference Range Interpretation [...] is2.5-3.5 for patients wiht mechanical heart valves.CALCIUM, [id number] 04:45:00 Test Item Value Reference Range Interpretation Comments CALCIUM IONIZED (BEAKER) (test 1.14 mmol/L 1.12-1.27 code = 698) PH, BLOOD (BEAKER) (test code = 7.36 1810) Sodium, random [id number] 00:37:00 Test Item Value Reference Range Interpretation Comments Sodium Urine (test <20 meq/L code = 2955-3) VALENTE (test code = Reference Range: No VALENTE) NormalsOperator ID - PIAYA L [facility] HospitalODIUM, RANDOM [id number] 00:37:00 Test Item Value Reference Range Interpretation Comments SODIUM URINE (BEAKER) (test code = < meq/L 243) Reference Range: No NormalsOperator ID - PIAYA LUrinalysis w/Microscopic 2020-01-20 00:30:00 Test Item Value Reference Range Interpretation Comments Color, UA (test code = Yellow 5778-6) Clarity, UA (test code = Hazy 5767-9) Specific [place], UA (test 1.017 1.001-1.035 code = 5811-5) pH, UA (test code = 5.5 5.0-8.0 5803-2) Protein, UA (test code = 20 mg/dL Negative A 60643-4) Glucose, UA (test code = Negative Negative 365) Ketones, UA (test code = Negative Negative 9024-8) Bilirubin, UA (test code = Negative Negative 78912-3) Blood, UA (test code = Small Negative A 40695-2) Nitrite, UA (test code = Negative Negative 5802-4) Leukocytes, UA (test code Trace Negative A = 5799-2) Urobilinogen, UA (test 0.2 mg/dL 0.2-1 code = 32312-0) RBC, UA (test code = 1 /HPF 99102-4) WBC, UA (test code = 3 /HPF 5821-4) Bacteria, UA (test code = Rare 02999-4) Squam Epithel, UA (test 3 /HPF code = 85785-8) Hyaline Casts, UA (test 3 /LPF code = 37292-8) Specimen Source (test code = 2795) VALENTE (test code = VALENTE) Java Sql Developer ID - [auto]Java Sql Developer ID - tech Lab Interpretation (test Abnormal code = 53362-5) [facility] DistrictUrinalysis w/Microscopic + Reflex to Culture 2020-01-20 00:30:00 Test Item Value Reference Range Interpretation Comments Color, UA (test code = 5778-6) Yellow Clarity, UA (test code = 5767-9) Hazy Specific [place], UA (test code = 1.017 1.001-1.035 5811-5) pH, UA (test code = 5803-2) 5.5 5.0-8.0 Protein, UA (test code = 72446-6) 20 mg/dL Negative A Glucose, UA (test code = 365) Negative Negative Ketones, UA (test code = 2514-8) Negative Negative Bilirubin, UA (test code = 56494-7) Negative Negative Blood, UA (test code = 01258-0) Small Negative A Nitrite, UA (test code = 5802-4) Negative Negative Leukocytes, UA (test code = 5799-2) Trace Negative A Urobilinogen, UA (test code = 0.2 mg/dL 0.2-1 49210-8) RBC, UA (test code = 55806-1) 1 /HPF WBC, UA (test code = 5821-4) 3 /HPF Bacteria, UA (test code = 56818-3) Rare Squam Epithel, UA (test code = 3 /HPF 53435-4) Hyaline Casts, UA (test code = 3 /LPF 98985-2) Specimen Source (test code = 2795) Lab Interpretation (test code = Abnormal 22324-3) [facility] DistrictURINALYSIS W/ REFLEX URINE [id number] 00:30:00 Test Item Value Reference Range Interpretation [...] SOURCE(BEAKER) (test code = 2795) URINALYSIS W/ [id number] 00:30:00 Test Item Value Reference Range Interpretation [...] /LPF 514) SOURCE(BEAKER) (test code = 2795) Java Sql Developer ID - [auto]Java Sql Developer ID - techActin (Smooth Muscle) Antibody, IgG [...] of patients withautoimmune hepatitis (AIH) type 1, wsamxngkvxcoq42 % of patients with autoimmune cholangitis,lis sherine mately 30% of patients with primary biliarycirrhosi s, and approximate ly 2% of healthy people.High beatriz ues are closely correlated with AIH type 1. VALENTE (test code = Performing Lab VALENTE) EZ [employer] [address] [address] Mark Encarnacion MD, PhD, AMINA Lab Interpretation Abnormal (test code = 56056-1) [facility] DistrictZinc2020-06-24 20:06:00 Test Item Value Reference Interpretation Comments Range Zinc (test code = 39 60- 130 mcg/dL L This te st was ) developed and i ts analytical performance characteristics have been determined by [employer] . It has not been cleared or appr jean-claude by theFDA. This assay has been validated pursu ant to the CLIA regulations and is used for clinic al purposes. VALENTE (test code = Performing Lab VALENTE) *BEATRIZ [employer] [facility], [address] [place] [address] Jorje Jauregui MD, PhD Lab Interpretation Abnormal (test code = 18750-4) [facility] [id number] 16:12:00 Test Item Value Reference Range Interpretation Comments Case Report (test code Surgical Pathology = 104) Report Case: [id number] Authorizing Provider: Sylvie George MD Collected: 01/17/2020 08:15 AM Ordering Location: [address] Received: 01/17/2020 01:50 PM Service Pathologist: Humaira Mendez MD Specimen: Duodenum, biopsy ADDENDUM (test code = c1qvqDNtZVSqaSFiOsAnXT 3381) RmQTAwd6vqPPKvtKSePiCq MzNcZnRuYmpcdWMxXGRlZm Owf1ctr265vIMea6atWCBa TfY3zDSuQQDlzNXyI212TE HvLTjwq6hdt2IaJPAbzAMw i6P7EEIBgobihYg4pTtwB3 8ui0M5QrnoE9mnFGJjGMAe C4XnJK9gCEDhHua0FXP9FL U5XCQbOLOrF5XhTU6vALDf dJYiFRc7m3cnnLjxDPXdHH D2a0owXGjdlsEfSD8ynq4y xLn0h6tiibUpMITzKQHycR CFEXRhL5DbhGcwAz4qoZu8 yOwiEyfgABM4Jej9WP6mue 07ker1yZdcRRKjfpweRsM8 VZvpBNIuapdsTCb1RYmpCB VivDO7ZZAdxQDpU9NoONDe LE9ptix5QYJ1XVqdDZNdUg T6NVQlePHtQPKooLxqSPwj n263QDJ1CuHuKO4eV0Erb9 I6hP4afJItNWGubAPjVmSs OKOifn5fgYBtIMdoq6HuUS E8dhM2qCTsnADzALRpMO06 Gnrla0UqCnhyZXC4KRLjun Lzv9Api8vaOxRusdTgE5qh I4JvBPNtDQPtIMKmCzQckg Ifg7Cup1YmxZWlzVm7g1tf BGUzRFUtiPurc7fvCKB7WH GpA1C4fAIev3jrYMtoNYRr xYN1skD6PFLnyPUpU5SjmO 6uIDKhVO7oyde9v1cjSJH4 NRjfPGLgIxX5zdZ2VHEyzP FuNKGapWzyULrfn119DOY7 McDuAMZph8GrI6NvrCuxU9 8gaQpyA99sAOPyxFmfvD5c xOnejA8gUoHmCvNcQTceGG JkXHBsYWluXGYxXGZzMjBc bGFuZzEwMzNcaGljaFxmMV ubUdWpXAMpEAxgR4ifPxRw ViUoNKEYJBsIQPPSHM1INS 3GQYeIAWkRG8RVAVLYYnDX RVBPUlQgVEhFIEZJTkRJTk dTIElOIFRIRSBERUVQRVIg AFEWENuIWD1IATBZHIACYR 9GD1zzEY1FTZeYDzEaTAsA IKHHJiHSBEFEAUpGY1CBGq pccGFyXHFsXHBsYWluXGYw DMDbPhWpmOxjvF1wQtLoIg IlZXlhRL4vDJPeS2bqxNMh KOZtLFUoH4jeOtIhfI1bcQ xmMVxmczIwXHBhciAgRFVP DUDCUC4jOIPVVI6LR98RQC MgQklPUFNZOlxwYXIgICAt WTJHJIUWXUGnVbIDR0ZCKl YVCzMHKAJsTMNFEA6NNNCI R5KJUPCnJWBBD9cWW8MINo ObX5QkUX3ZSRGCOFEBL0MK Gz8EMYIGXHzvKWNkVIBjWU 4BITNIJPTCTqOOMM7EELJD TElBQyBESVNFQVNFIFNFRU 5ccGFyICAgLSBOTyBHUkFO VUxPTUFTLCBEWVNQTEFTSU DsA5GqAHLBFPaYFH8EZVIG RUVOXHBhcn0= DIAGNOSIS (test code = o1axoXRpPUFoa9zcFISrcR 3220) FuZzEwMzNcZnRuYmpcdWMx YCsilwAySHzfv6WrP9WsHj AwMFxhbnNpXGRlZmxhbmcx YLAzPXU9iyPeIFRuQGfrVI UxPGzoIz1lnAKjpOadYeDq CEWig1adkmTMwnjxeHg2p0 aiZTRvWjK6dUQdEQzjJ7ry frFetBMfAWLyGOw5cR15NT AuwX0fpBOjDOviqnFgByA6 WOrdOWNmMeY0YKUiqAMiQZ QoM7qeJWMsAGegNJGfEKaa tJObGMC2hXbsp3D8kRTfiP UqbJglMkWiPrEbJTBKo3Ae LUa1oYguZ3GqQTUkTcK7yJ QgUGFyYWdyYXBoIEZvbnQ7 vI19KAjswyX0dHVrd5Wdt3 9dv375tB1khIDgCOH0YORf JGLdnOTwINKbBRP8GZYtsD EpA9f9GwXbeUJuD6M7FiFx nKKwB6M1YfKvmHBjT6Z5Pc ExfPPsWXJcqLVnOp8kbHRn eHIkvk2evw41RTC8b3VtjV inPEF8BOB1OrTkXn2xyQHv OIEtGD1oKnOnwXJaTHBfkg 22yGayTQpauaYjuI4vAkOz SMIikBXvKKVgOQ7kmEUlTS FxcP7bfzmrLWZkRbVxrdez TFZakDpzjeWcAd0bqPcnDO L0MJvdU7xfwN8lAcM7WZwc X2xeqR7eKZv7OThybZY8XV XdrG9eOE0osrctu1xpWmJj GT7itqscf5ftAqHkFX0iee t9l9izLnSoZV5lggwrn4we NzIwXGhlYWRlcnkwXGZvb3 AhjuvvINGld2XdV2ZtqVeg A14wjYseY51xELHanFgqrW 4fqUulmX2wXzYuUlQfMNws bFxwbGFpblxmMVxmczIwXG quimxwHDViPWcvD3smAmWa UNVflNhsVOkvo9MyCXXoWT JcVsLgEGWEERFCJM9rUMNG FS8PK68SUWPoWiuFOYKSXu isQGNfETWgV9CQOSSQYUJN UMslRxRJB92FJtEWHF3COT NPGUnISMTOB7HQWA3UZ53G HPGYDPQNQKhXR7UJFPEqVe 7MFD4ENWRxVJYTJIZSQTAF LGsbAHLwfYDtZAGeum67MS C1ClIyn1K4SCT6MFCgNHXr x7txRMTvzQKrOjOtMmEsNd MjTzpxgOYlDIIuBcVgr4as x247eRJcq2izTGEbScB3cK CbHHYyoEEiH875UCCcKTrf z0sat5OnKVXalKIud2F5DI JEgsctkCm2rHxrW20es4W6 KygxX5obOQNtYJDhF0UwOX 9cESJiRnt5JCH7NVO8WGSt MSIvE2HlLC6kJSOxvUApMT c3s7xhfOweFXDuXLG3d5uw AMynfyJhDS1dls0cpKv9o8 xjczEgRGVmYXVsdCBQYXJh U3DczMwhZv2xgNb2cLokIw vuNRO4Cqy4SF8ogw97eed9 rTrrQXDioumiFmU5YOtoZW IoutgbGZs5BEuiEWIroCZ4 GVWdbAJyZ4VuTHVhXU9pbk f3EMC8VCrzPUPcAxC2NYBa eAYxFQBqgJkmFYqqn237IL W9UgIaLC6sF7Vra4H8sO2q aXRcZGVmdGFiNzIwXGZvcm 6xkMRlRGwom5VrAAJ0hvB3 lEUvpYSdQGIdCeE7CAbmEY 9erf44VEJmFXG9dz8rgBNi pFvdufNvbNHxKNsuU5BwMB Tai582PGTrG3CwNTSkl5U3 vfXsQwZuBINphXU8heY7GC KsHJ6phlubo5duAHdtVFky KFHhwmA9xkK1DPBreWCkL9 KaqN7iNKFjZK1nneprb8su WEC9BVzsYLBcAHP8BfBnQO Qgt4Abrxj0QeRut0OshJRt JNzgH44on580SCNczkDmO7 xwbGFpblxwbGFpblxmMFxm mnO9SWIsWRpnhhefWWEzSP ixM3qxHuJdCLNieDikRDob h9XeFKKqHXAyKxYozTUlVL AkYig0HYQteTOsOHUbXqDp H0hcdekiPzBNKGEum0gcZ6 crdVLLlFArD5EjEMhumvWj EJlhGPlwDGZ7OHF7Lu29Sk Q4FTDltg15 CPT Code(s) (test code l7olaDQkZHIpbQCjUhNyZR = 3351) RcYVYdp8baSTQrsUKmFxDm MzNcZnRuYmpcdWMxXGRlZm Dqx0lvi189gQOns1iuXUBo TnB2sSCtYXQueJYfF641z9 aqf9phxgYghTG3DWDnDUA9 FRmlnaTyprI1XDidkBEtUm C5ROgjzdGxSIaqmdByxiUz Jbd2AVLqW765GST6jGvqb7 dcTPU6IGXeUICgSqOuYg4t qHZaC367JAIwLKOHQJVvcD i4BGSoozNuopXdhQCGt114 B982p9pzJKStjsTrfZdCel ctj5kpF579RVDbwYCfvcVe KwIhBIZghRQvoRG7CAMkWH 2qahuaQrWoNA4kjgyxZtQm QS4yinb4KcYxSG2bxceqBt TlDFitTQBwyhirCCHqj3Ny qbgpEC9vO6Mkp1Z0oL3bjT LhURMbbVPfZpUwIXHves7o tGObHGtgc8OgTCO9bqQ8vL BmtQLgJDGaCN10Evepv4Nj IztoMQX3ZCQufxHjm2Zok5 pzOuTxpcKhS8rqR0ZfMVOa ANGrMERxTwGdrqPco9Dvb2 JgiTNcyEp1t6otZJVxVPSb eXixq6iuZDZ0TMJwW6X5vM Vya8uiXWguDKPboLF9wfoa KRgrNUEhppK4hdnpHCbkPM MzxSK3zaapVUtyRUEeVbY7 gzyyJIqiOCKtFAO4IXvdc5 38CED5SBfcVwidQDdtNKGm bmNvbnRccGduZGVjXHBsYW luXHBsYWluXGYwXGZzMjRc wGdhmXkeaG6sRlJcSuLxEK ccCB0nGREtB6gbiNAgLPNd TFMqF0irMkDtyI4mvFkkEM ewdzTrVTf8OyR2NLKuus6= CLINICAL HISTORY (test t2xdrGSrPAUynWRzZzTuJG code = 3356) TqSRPsl1qpILSexTToTmFn MzNcZnRuYmpcdWMxXGRlZm Djv7dcf162lMMld1azJZXt EsI0hFLzXSLtfGNeF048NS MbPQltg1ygw7SbOTAzwXNs l2W0LFJRdmbelCt8pZixI9 3cl4S8IfixR8alRFWwRPdq AKHjXYdefPKjGOC1ANWxDB Y7AFlegfHcraE5SKbivQZd IdH1BNo9z5fhqIpqXSLsZL Y6q4ulGPslhyKlWA5qch9i yGl9i1ltmvXvBFPgAYKqkB UFOAGbQ0UbvHrfWu8xzTp1 uLhuZfwtGPK1Jyu3CJ9idz 38chu4aKabORQfykoaCbA5 QJhuNHHmakkwNGu7DQvqHA JnbDcyMFxtYXJncjcyMFxt YXJndDcyMFxtYXJnYjcyMF jbSYKiUBM1AHjik703QJO7 VGhcu2nns2rglDBqJos7FD CsWvMeAiskXNepx0Azg6ol UQIvme3tFIG6yXQdhCfoo4 B2cHZjAIUcmNEdbsOwVCBs JcG6UUpsIO4pff03LKHhNZ A3vt4glESskEehgiBtgFEu FGqfA9EmETUas043SYIdV7 YlNQIpp4N3wmAgGbLgRIUv vGC8nwN3YYHoNCs2qJPuoz F0sdJyhXLbB2yzgJ24BsBp iYBjC3UexD86TtYnpCEcZ1 XbuL08LlPssDOtS6RecJ67 AnHveTQiRQBruAIzXp6vdV BebIUtk7LmgHAbABvzH46s j549JRAoddYyY6jvqAByys xwbGFpblxmMFxmczIwXHFs XHBsYWluXGYwXGZzMjBccG lliZ9mObJyPnIzRBHGac6f DXJ0odV6PMYpwEYeAZRzRR 7mL13aqGoxCeqarHB2ZCNt MKCli5hfki7zZ71pnCAlbR KbUQFuBBDmvmLujU3igQ1n IQDeNNmsk7DzdbarJH4mfJ lhXHBhcn0= SPECIMEN SOURCE (test k9ybgBQyGDEjzREgYmKyYW code = 3377) GfHKDqq8zsZLHsqSUoNbCc MzNcZnRuYmpcdWMxXGRlZm Xgm3eue624hANpi1mbJMVx CfU2pTVlWQTjyITeP817x8 nhb9aiujErpLJ3IQKsPYY6 RNksmlRaqpC9GFhxiBIzMk C8XTvprtEcNHgfveCcqjMv Csj6UXIeI233PFF0fWxgw8 knOTF4TYRvRZBaWwGyYj8m vNUdJ578VKCkTELFCRIegR p9VKZrfiKjaoMnzRTVl578 Q355o6wvFPMxnfVgtSlQbm wxk4taH112ZKNabHQbdkNn PsNwSWQinVQqdGQ5TNStVT 9hrvryCpPfAQ8tnmzlSgXi IC1rqzs3YuDrSV8rmgzxLg CtNImjNKRxowipXIOks9As plhsFY3jY0Ekj3B2nN7ivK MnHGQqxWNqXiUfOSLncb2l xGXpIHaai5UdYCL7fiK5jK DlnFNyVJNlLO96Mzxxh7Zd RmffFQV1TENjzeQjz2Jiy9 grXdXpocBdA1wfT0AbQBWu NAUjQNUeLhKfulZab6Fdv7 VhxROwcMi9g1pbNIJzSBVt qGmzr0mqWMC9LCVnG5O3yO Gyh6ngRVcgLJLwfLG3pshg GSvgDBBqfqW2qvdjYLqoSW HhwVM1pmexOHshUJYfTbX5 pegdVMcfVRPoJLX0GWaeu7 62KNX0WBuaGzowBBgkDEWw bmNvbnRccGduZGVjXHBsYW luXHBsYWluXGYwXGZzMjRc qGbjyPoteB1rMyHlZaEqSS cxMD7hZEBwU6wcmPMxGYLj GUSkR8mbRlUmvF7bgKtiNR kbmjYsPFYiXUA0e5UaxaCq SmLjdN6tt2zgvOVdkU== GROSS DESCRIPTION (test w1saySHpBZTsbVGzFzWyKM code = 3366) JkIGXud7fiDLJhdGLtNrUb MzNcZnRuYmpcdWMxXGRlZm Quj9wnf912iROrv7aaBOMf OaT4bZXpXORrjCJgO254FS GfLGuah4nbr6LcYHJepZTj m1G0OKEFnsxinTq8jNjjI9 8qu6D1CemiD9jmIAWhOIsy JYAxMDvgzNZtRDX9LUKrCI W1FIugfeGqxfN0UKrxiUHw SwQ5LXb5r8urfGmoDKVzQT M8b2xtINkkhcPqBZ4cvy9q mPo5v2ejcfGaVNCiEXLqpX BBILJgS7JgkNpyTz6umJv5 bUxcOaenVKH3Wxu7DG0lsh 08vqk3gGgxDIFrpjzdKjF3 STrgAWRwmgpkPPd3SXtnLU JnbDcyMFxtYXJncjcyMFxt YXJndDcyMFxtYXJnYjcyMF wpAMHjEPJ4ICqdd912TEI2 JQtac2kne6hmbHTaStv0LS QaVbQgPoheRBcpk7Tmr7cb ZAWfyl9dUES3sPJftCyof1 O9rRApISIicPDkudWeUNQc FzF7OKleXT9lme29ZAGiMM X4bz2mdSTazBsaduUbbEWi ENygC9AiXRNfi098MBFxY3 KvULNhd7G3wpHvByPzYIKj oBG6ypL2GWQwMMw9tTKppw P9gzJdwCHgN4drfP25CfUi yKWiM0MwgS67JoCjkQGxL7 WuyD45BiWbuBYwK4EwfK60 PfWczHPxXYLzsCYaUs5cvO MlmMQlj6UdgVKxDRcnG10y x617LTWpcbRhM9ljqVIttv xwbGFpblxmMFxmczIwXHFs XHBsYWluXGYwXGZzMjBccG xtdO3fDzUuHgOkSQUVFoEG rUWfp0OaW0ahPZ0tdQVmnd NcBJl5XKRdfG8bAw5mtZFq cK1dHNKwEOmyINLuAYWqBl AgkTXsNLdyJAD9dUFpVNRq LYIrVXQzHS97J8GdblArPN saIXXrTDKejQ4rLU21mXRi ciBhbmQgIlxwbGFpblxmMF amfqQxMNU4t7GicaXzZzXf hkKgW38ad1eueCDke8Orv6 5dUNUyna4mtC9nDQgiuAXy bryeHPmjtbAdGU39J06wSZ npX896CWTnKGkfpVEkfmmm MFxmczIwICBwaWVjZXMgb2 EpiEsfy0AkCU0cEVQ3astp ZyAwLjMgeCAwLjIgeCAwLj RiG19mXMlpqHJqgkzgQOnq mtToKYNrGQPnjPVxnQ0faw LgvkZjcYGwlGB5NCBrZW57 nDGsmWlzCc5khO35sV2wHU TyiECuRZBvy55ygE7mGYSm CVObBWR7MJKbqGmvxT9cWk VkUgAiFGVFOI2bUXuWZ9Ik XHBhcn0= MICROSCOPIC DESCRIPTION m6btkJJrNGPghRDjSaBgOS (test code = 3371) PgRFWtm1sjQHQcbCKgRgOt MzNcZnRuYmpcdWMxXGRlZm Wbg2awy271uGKuq6kpCGXj MqM7jJUnHFEdwMUpO157l6 dyx5ttfxRjtVK5QOYuYBA3 MJudsqYwoyT1JDzfvEKxPr V3AQnslgKpTNleehLyroPf Rok5AIYqG678BHA2zCrfh3 wcDWS1VHNfGOYkEwTkEd7e lACvL704DAZfOERQQZAgsI r6ZRYbmxDxnvIhpIIGi819 Y181d8loOZFfqhMomStYcq mur9lhN431SYVubPNkdjTu XpMgEACefNFstNC5PYEcPM 5feisoKjPjZQ8vrkyxUpVh SA8oudm8OxRnNO8vbycjGk EsDVbkFURuqfgqDDOrm2Eq lhlcVQ2zC1Njs7K1gO9ixD IpRJWluFLiRjGxFTMmvp6l tROzGSuij2YvMJY2uwB2cF LrtOIqKNKvBW56Ecwts1Pi MvtwYNO1VGBylaCrq5Wpq4 bkKcLcukJgW5jtK1PuBSSa VSOjAMRdSoLvauVhg3Wmk7 NdhXMfjVs0c0ukKQJyWGHr wBtve8teTYR5WYXbX1R1zJ Ynb2kaCYooNJHcxIB4vzcm DGinQWPfmlD7ggmjENlpVD ItcZG4ykpdQMojJHFpRgK3 yyfrJWuyEJWnEQL2DOajf8 29QDS6RKbzQtagTSgfYCQy bmNvbnRccGduZGVjXHBsYW luXHBsYWluXGYwXGZzMjRc sSbsiNpihI7tFmNcNuEiRF hoQM9fDXGnZ0zkdUBrEORn MDNjP8qaUoIlpV5tjCikWH rlcpQnNSRUUfHBHi8EZOht YXJ9 [facility] [id number] 16:12:00Surgical Pathology Report Case: [id number] Authorizing Provider: Sylvie George MD Collected: 01/17/2020 08:15 AM Ordering Location: [address] Received: 01/17/2020 01:50 PM Service Pathologist: [...] FOVEOLAR METAPLASIA Signing Pathologist Direct Phone Line: [phone] signed by Humaira Mendez MD on 01/18/2020 at 3:50 [id number]: upper endoscopy, biopsy and colonoscopy Pre and postop diagnosis: anemiaA. Duodenum; biopsyA. The specimen is received in formalin labeled with the patient's name, accession number and "duodenum" and consists of one garduno-pink mucosal-covered pieces of tissue measuring 0.3 x 0.2 x 0.1cm. The specimen is submitted entirely following filtration in a cassette A1. HS/plPERFORMEDBlood gas, [id number] 16:03:00 Test Item Value Reference Range Interpretation [...] % Lab Interpretation (test code = Abnormal 26664-4) [facility] District[facility], [id number] 16:03:00 Test Item Value Reference Range Interpretation [...] (BEAKER) (test code = 1819) 28.0 % [id number] 15:05:00 Test Item Value Reference Range Interpretation Comments Ceruloplasmin (test code 21 mg/dL 18-53 = [id number]) VALENTE (test code = VALENTE) Performing Lab *BEATRIZ [employer] [facility], [address] [place] [phone] Jorje Jauregui MD, PhD [facility] DistrictCarbohydrate antigen 19-9 (CA 19-9)2020-01-19 12:51:00 Test Item Value Reference Range Interpretation Comments CA 19-9 32 U/mL <34 This test was (test code = performed using the 20659-3) Siemens Chemiluminescen t method.Values o btained from different assay methods cannot be used interchangeably .CA19-9 levels, regardl ess of value, should n ot be interpreted as absoluteevidenc e of the presence or abs ence of disease. VALENTE (test Performing Lab code = VALENTE) EZ [employer] [facility] [address] [place] [address] Mark Encarnacion MD, PhD, AMINA [facility] DistrictPROTHROMBIN TIME/[id number] 11:28:00 Test Item Value Reference Range Interpretation [...] patients wiht mechanical heart valves.MM, U/S, BREAST, [id number] 09:52:00Referring: Dr. Rowdy Zhang for exam:->liver transplant [...] Brooks MDReport Verified Date/Time: 01/19/2020 09:52:28 Reading Location:[address] Mammo Reading Room US breast [id number] 09:52:00Interface, External Ris In - 01/19/2020 9:54 [...] MDReport Verified Date/Time: 01/19/2020 09:52:28 Reading Location: [address] Mammo Reading Room [facility], WITHOUT [id number] 08:09:00Referring: Dr. Rowdy Wileyesthesia:->NonePlease specify abdominal organs:->AdrenalFINAL [...] MDReport Verified Date/Time: 01/19/2020 08:09:04 Reading Location: [facility] Diagnostic Imaging Reading Room - [place] [address] abdomen without IV contrast 2020-01-19 [...] MDReport Verified Date/Time: 01/19/2020 08:09:04 Reading Location: [facility] Diagnostic Imaging Reading Room - [place] [address] Electronically signed by: JOHN CROCKER MD on 0 01/19/2020 08:09 [facility] JoseCALCIUM, [id number] 07:59:00 Test Item Value Reference Range Interpretation [...] To Exercise midodrineConfirmed by fellow Bc Chávez ([id number]) on 01/18/2020 9:20:19 AMConfirmed by Shaq GARCIA MICHAEL([id number]) on 01/19/2020 7:03:55 [facility] JoseCOMPREHENSIVE METABOLIC PANEL 2020-01-19 05:21:00 Test Item Value [...] S NOT APPLICABLE FOR DIALYSIS PATIEN TS. [employer] Developer ID - LASpecimen moderately [id number] 05:04:00 Test Item Value Reference Range Interpretation Comments PHOSPHORUS (BEAKER) (test code = 3.3 mg/dL 2.3-4.7 604) [employer] ID - [id number] 05:04:00 Test Item Value Reference Range Interpretation Comments MAGNESIUM (BEAKER) (test code = 2.0 mg/dL 1.6-2.6 627) [employer] Developer ID - LAHEPATIC FUNCTION [id number] 05:04:00 Test Item Value Reference Range Interpretation [...] (test code = 10 U/L 6-55 347) [employer] Developer ID - LASpecimen moderately ictericB-TYPE NATRIURETIC FACTOR (BNP) 2020-01-19 04:59:00 Test Item Value Reference Range Interpretation Comments B-TYPE NATRIURETIC PEPTIDE 2455 pg/mL 0-100 H (BEAKER) (test code = 700) [employer] Developer ID - EDWIN BCBC W/PLT COUNT & AUTO [id number] 04:46:00 Test Item Value Reference Range Interpretation [...] (BEAKER) (test code = 2801) U/S, RENAL, [id number] 01:26:00Referring: Dr. Rowdy Zhang for exam:->Re-examine L [...] Sneed MDReport Verified Date/Time: 01/19/202001:26:59 US renal [id number] 01:26:00Interface, External Ris In - 01/19/2020 1:29 [...] Maira Sneed MDReport Verified Date/Time: 01/19/2020 01:26:59 [facility] JoseEosinophil [id number] 22:11:00 Test Item Value Reference Range Interpretation Comments Eosinophil Smear (test Rare EOS =less than No EOS seen A code = 60758-3) 5% WBCs seen are EOS Lab Interpretation (test Abnormal code = 96302-4) [facility] DistrictEOSINOPHIL SMEAR, [id number] 22:11:00 Test Item Value Reference Range Interpretation Comments EOSINOPHIL SMEAR, URINE Rare EOS =less than No EOS seen A (BEAKER) (test code = 5% WBCs seen are EOS 1851) SODIUM, RANDOM [id number] 22:04:00 Test Item Value Reference Range Interpretation Comments SODIUM URINE (BEAKER) (test code = < meq/L 243) Reference Range: No NormalsOperator ID - EDWIN BCreatinine, random urine 2020-01-18 22:02:00 Test Item Value Reference Range Interpretation Comments Creatinine, Ur 181.3 mg/dL (test code = 2161-8) VALENTE (test code = Reference Range: No VALENTE) NormalsOperator ID - EDWIN B [facility] DistrictProtein, random [id number] 22:02:00 Test Item Value Reference Range Interpretation Comments Protein, Urine (test code 45 mg/dL 0-14 H = 2888-6) VALENTE (test code = VALENTE) [employer] Sql Developer ID - EDWIN B Lab Interpretation (test Abnormal code = 90346-6) [facility] DistrictCREATININE, RANDOM [id number] 22:02:00 Test Item Value Reference Range Interpretation Comments CREATININE URINE (BEAKER) (test 181.3 mg/dL code = 375) Reference Range: No NormalsOperator ID - EDWIN BPROTEIN, RANDOM [id number] 22:02:00 Test Item Value Reference Range Interpretation Comments PROTEIN, URINE (BEAKER) (test code = 45 mg/dL 0-14 H 1569) Java Sql Developer ID - EDWIN BURINALYSIS W/ [id number] 22:02:00 Test Item Value Reference Range Interpretation [...] (test Urine, Sterile code = 2795) Collection Java Sql Developer ID - [auto]Java Sql Developer ID - techHepatitis B core antibody, [id number] 16:02:00 Test Item Value Reference Range Interpretation Comments Hep B Core Total Ab Nonreactive Nonreactive (test code = 05788-5) VALENTE (test code = VALENTE) Java Sql Developer ID - CHARO F Lab Interpretation (test Normal code = 52810-9) [facility] DistrictHEPATITIS B CORE ANTIBODY, [id number] 16:02:00 Test Item Value Reference Range Interpretation Comments HEPATITIS B CORE TOTAL ANTIBODY Nonreactive Nonreactive (BEAKER) (test code = 497) Java Sql Developer ID - CHARO FECG 12 [id number] 14:19:40Interface, External Ris In - 01/18/2020 2:19 PM CDTVentricular Rate 62 BPMAtrial Rate 62 BPMP-R Interval 138 msQRS Duration 86 msQ-T Interval 452 msQTC Calculation(Bazett) 458 msP [place] 59 degreesR [place] 32 degreesT [place] 56 degreesNormal sinus rhythmLow voltage QRSNonspecific ST [id number] JUN 2020 11:05Nonspecific T wave abnormality Nonspecific T wave abnormality, improved inQT has shortenedConfirmed by MD FARHAT, [facility] ([id number]) on 01/18/2020 2:19:38 [facility] Cytomegalovirus antibody, [id number] 13:49:00 Test Item Value Reference Range Interpretation Comments CYTOMEGALOVIRUS, IGG Positive Negative, A (test code = 3429) Equivocal VALENTE (test code = VALENTE) CMV IgG Result Interpretation: </= 0.8 Al Negative 0.9-1.0 Al Equivocal >/=1.1 Al Positive Lab Interpretation (test Abnormal code = 07568-7) [facility] DistrictEBV-VCA antibody, [id number] 13:49:00 Test Item Value Reference Range Interpretation Comments GABRIEL CHING VIRAL Positive Negative, A CAPSID ANTIGEN IGG (test Equivocal code = 3415) VALENTE (test code = VALENTE) Gabriel Ching Viral Capsid Antigen IgG Result Interpretation: </= 0.8 Al Negative 0.9-1.0 Al Equivocal >/= 1.1 Al Positive Lab Interpretation (test Abnormal code = 24293-1) [facility] DistrictEBV-VCA antibody, [id number] 13:49:00 Test Item Value Reference Range Interpretation Comments GABRIEL CHING VIRAL Negative Negative, CAPSID ANTIGEN IGM (test Equivocal code = 3418) VALENTE (test code = VALENTE) Gabriel Ching Viral Capsid Antigen IgM Result Interpretation: </= 0.8 Al Negative 0.9-1.0 Al Equivocal >/= 1.1 Al Positive Lab Interpretation (test Normal code = 45900-3) [facility] DistrictCytomegalovirus antibody, [id number] 13:49:00 Test Item Value Reference Range Interpretation Comments CMV IGM (test code = Negative Negative, 3437) Equivocal VALENTE (test code = VALENTE) CMV IgM Result Interpretation: </= 0.8 Al Negative 0.9-1.0 Al Equivocal >/= 1.1 Al Positive Lab Interpretation (test Normal code = 31830-6) [facility] DistrictCYTOMEGALOVIRUS ANTIBODY, [id number] 13:49:00 Test Item Value Reference Range Interpretation Comments CYTOMEGALOVIRUS, IGG (BEAKER) Positive Negative, Equivocal A (test code = 3429) CMV IgG Result Interpretation: </= 0.8 Al Negative 0.9-1.0 Al Equivocal >/=1.1 Al PositiveCYTOMEGALOVIRUS ANTIBODY, [id number] 13:49:00 Test Item Value Reference Range Interpretation Comments CYTOMEGALOVIRUS IGM ANTIBODY Negative Negative, Equivocal (BEAKER) (test code = 3437) CMV IgM Result Interpretation: </= 0.8 Al Negative 0.9-1.0 Al Equivocal >/= 1.1 Al PositiveEBV ANTIBODY, [id number] 13:49:00 Test Item Value Reference Range Interpretation [...] Negative 0.9-1.0 Al Equivocal >/= 1.1 Al [id number] 13:35:00 Test Item Value Reference Range Interpretation Comments T3, Total (test code = 3053-6) 51 ng/dL 48-159 Lab Interpretation (test code = Normal 56288-1) [facility] [id number] 13:35:00 Test Item Value Reference Range Interpretation Comments T3 TOTAL (BEAKER) (test code = 656) 51 ng/dL 48-159 PET/CT, CARDIAC PERF REST AND [id number] 12:45:00Referring: Dr. Rowdy Zhang for exam:->pre op cardiac clearance for liver transplantFINAL REPORT PROCEDURE: MYOCARDIAL PERFUSION PET IMAGING (Rest/Stress)CPT CODE: 72585 INDICATION: Evaluation for liver transplant CARDIOVASCULAR PROFILE:Symptoms: [...] MDReport Verified Date/Time: 01/18/2020 12:45:40 Reading Location: [address] Reading Room [place] Myocardial Perfusion Pet/CT (Rest & Stress)2020-01-18 12:45:00Interface, External Ris In - 01/18/2020 12:47 PM CDTFINAL REPORT PROCEDURE: MYOCARDIAL PERFUSION PET IMAGING (Rest/Stress)CPT CODE: 09618 INDICATION: Evaluation for liver transplant CARDIOVASCULAR PROFILE:Symptoms: [...] MDReport Verified Date/Time: 01/18/2020 12:45:40 Reading Location: [address] Reading Room [facility] HEPATIC FUNCTION [id number] 10:29:00 Test Item Value Reference Range Interpretation [...] (test code = 9 U/L 6-55 347) Java Sql Developer ID - CHARO FSpecimen moderately ictericCBC W/PLT COUNT & AUTO [id number] 08:43:00 Test Item Value Reference Range Interpretation [...] CONCENTRATION Decreased (CELLAVISION)(BEAKER) (test code = 3438) Java Sql Developer ID - JohnOperator ID - Lizett OverholtUser comments: Slide comments: [id number] 07:29:00 Test Item Value Reference Range Interpretation Comments MAGNESIUM (BEAKER) (test code = 2.1 mg/dL 1.6-2.6 627) Java Sql Developer ID - CHARO FBASIC METABOLIC [id number] 07:29:00 Test Item Value Reference Range Interpretation [...] S NOT APPLICABLE FOR DIALYSIS PATIEN TS. Java Sql Developer ID - CHARO FSpecimen moderately ictericAnti-Nuclear Antibody (REILLY) 2020-01-17 10:54:00 Test Item Value Reference Range Interpretation Comments REILLY (test code = 33120-6) Negative Negative VALENTE (test code = VALENTE) Test performed by IFA method.Test performed by IFA method. Lab Interpretation (test Normal code = 40287-7) [facility] DistrictANTI-NUCLEAR ANTIBODY (REILLY)2020-01-17 10:54:00 Test Item Value Reference Range Interpretation Comments ANTI-NUCLEAR ANTIBODY (REILLY) (BEAKER) Negative Negative (test code = 418) Test performed by IFA method.Test performed by IFA method.[id number] 10:49:00 Test Item Value Reference Range Interpretation Comments RPR (test code = 75859-3) Nonreactive Nonreactive Lab Interpretation (test code = Normal 78187-3) [facility] DistrictRPR2020-06-22 10:49:00 Test Item Value Reference Range Interpretation Comments RPR SCREEN (BEAKER) (test code = Nonreactive Nonreactive 420) CBC W/PLT COUNT & AUTO [id number] 10:00:00 Test Item Value Reference Range Interpretation [...] CONCENTRATION Decreased (CELLAVISION)(BEAKER) (test code = 3438) Java Sql Developer ID - [id number] ID - Alem Mars comments: Slide comments:BASIC METABOLIC [id number] 05:16:00 Test Item Value Reference Range Interpretation [...] S NOT APPLICABLE FOR DIALYSIS PATIEN TS. Java Sql Developer ID - PIDORIAN LSpecimen moderately [id number] 05:15:00 Test Item Value Reference Range Interpretation Comments MAGNESIUM (BEAKER) (test code = 2.1 mg/dL 1.6-2.6 627) Java Sql Developer ID - MITCH LPROTHROMBIN TIME/[id number] 04:50:00 Test Item Value Reference Range Interpretation [...] patients wiht mechanical heart valves.Vitamin B12 and [id number] 16:46:00 Test Item Value Reference Range Interpretation Comments Vitamin B12 (test code = 1107 pg/mL 213-816 H 2132-9) Folate (test code = 2284-8) 3.40 ng/mL >=7.00 L VALENTE (test code = VALENTE) Java Sql Developer ID - NTP Lab Interpretation (test Abnormal code = 09053-1) [facility] DistrictVITAMIN B12 AND [id number] 16:46:00 Test Item Value Reference Range Interpretation Comments VITAMIN B12 (BEAKER) (test code = 1107 pg/mL 213-816 H 774) FOLATE (BEAKER) (test code = 362) 3.40 ng/mL >=7.00 L Java Sql Developer ID - NTPLactate dehydrogenase (LDH)2020-01-16 12:57:00 Test Item Value Reference Range Interpretation Comments LDH (test code = 2532-0) 250 U/L 125-220 H VALENTE (test code = VALENTE) Java Sql Developer ID - TUAN C Lab Interpretation (test Abnormal code = 16397-1) [facility] DistrictLACTATE DEHYDROGENASE (LDH)2020-01-16 12:57:00 Test Item Value Reference Range Interpretation Comments LACTATE DEHYDROGENASE (BEAKER) (test 250 U/L 125-220 H code = 635) Java Sql Developer ID - TUAN CRETICULOCYTE [id number] 12:44:00 Test Item Value Reference Range Interpretation Comments RETICULOCYTE COUNT PCT (BEAKER) (test 5.0 % 0.5-1.7 H code = 575) Java Sql Developer ID - [facility] [place] Antigen with HIV-1/2 Ysmeqyhr7487-89-86 12:17:00 Test Item Value Reference Range Interpretation Comments HIV-1 Antigen with HIV Nonreactive Nonreactive 1&2 Antibody (test code = 09816-8) VALENTE (test code = VALENTE) Java Sql Developer ID - TUAN C Lab Interpretation (test Normal code = 38243-3) [facility] ANTIGEN WITH HIV-1/2 [id number] 12:17:00 Test Item Value Reference Range Interpretation Comments HIV-1 ANTIGEN WITH HIV 1\\T\\2 Nonreactive Nonreactive ANTIBODY (2) (BEAKER) (test code = 2586) Java Sql Developer ID - TUAN YFokroakswke8182-88-00 12:02:00 Test Item Value Reference Range Interpretation Comments Haptoglobin (test code = <8 14-258 L 4542-7) VALENTE (test code = VALENTE) Java Sql Developer ID - TUAN C Lab Interpretation (test Abnormal code = 57833-8) [facility] DistrictHAPTOGLOBIN2020-06-21 12:02:00 Test Item Value Reference Range Interpretation Comments HAPTOGLOBIN (BEAKER) (test code = < mg/dL 14-258 L 366) Java Sql Developer ID - TUAN CHemoglobin [id number] 09:01:00 Test Item Value Reference Range Interpretation Comments Hemoglobin A1C (test code = 4548-4) <3.8 4.3-6.1 L Lab Interpretation (test code = Abnormal 74311-8) [facility] DistrictHEMOGLOBIN [id number] 09:01:00 Test Item Value Reference Range Interpretation Comments HEMOGLOBIN A1C (BEAKER) (test code = < % 4.3-6.1 L 368) U/S, ABDOMINAL, WITH [id number] 07:32:00Referring: Dr. Rowdy Mccarthy Reason for exam:->liver [...] MDReport Verified Date/Time: 01/16/2020 07:32:01 Reading Location: [address] Transitional Reading Room US abdominal with mdamuim6939-19-75 07:32:00Interface, External Ris In - 01/16/2020 7:34 [...] MDReport Verified Date/Time: 01/16/2020 07:32:01 Reading Location: [address] Trans[facility] [id number] 04:41:00 Test Item Value Reference Range Interpretation [...] S NOT APPLICABLE FOR DIALYSIS PATIEN TS. Java Sql Developer ID - PIAYA LSpecimen moderately sernnrdFBKROEKMK5005-05-43 04:38:00 Test Item Value Reference Range Interpretation Comments MAGNESIUM (BEAKER) (test code = 2.3 mg/dL 1.6-2.6 627) Java Sql Developer ID - PIAYA LHEPATIC FUNCTION [id number] 04:38:00 Test Item Value Reference Range Interpretation [...] (test code = 9 U/L 6-55 347) Java Sql Developer ID - MITCH Jane moderately ictericPROTHROMBIN TIME/SOS4300-11-16 04:36:00 Test Item Value Reference Range Interpretation [...] mechanical heart valves.CBC W/PLT COUNT & AUTO [id number] 04:29:00 Test Item Value Reference Range Interpretation [...] (BEAKER) (test code = 2801) Carotid doppler jobllyfzm2204-67-06 00:34:03Ejection [facility] ECHO HEARTLAB MKCKESSON CPACSRight Impression1. The internal, [...] AM CDTPV LAB - Carotid Duplex Study [facility] Patient Name CICI CALDERON Date of Study 01/15/2020 ALYSE Age 64 Visit Number [id number] Gender Female Accession Number [id number] Date of 1955 [facility] Room Number 1515 Physician Animal Scientist Herbert Lechuga Interpreting Chelsea Resendez T Physician [...] seperate draw time from initial type and [id number] 20:34:00 Test Item Value Reference Range Interpretation Comments ABO/RH AUTOMATED (KIRK) (test A POSITIVE code = 2260) [facility] DistrictT42020-06-20 18:08:00 Test Item Value Reference Range Interpretation Comments T4, Total (test code = 4.3 ug/dL 4.9-11.7 L 3026-2) VALENTE (test code = VALENTE) Java Sql Developer ID - NTP Lab Interpretation (test Abnormal code = 30141-2) [facility] DistrictT42020-06-20 18:08:00 Test Item Value Reference Range Interpretation Comments T4 TOTAL (BEAKER) (test code = 895) 4.3 ug/dL 4.9-11.7 L Java Sql Developer ID - XZLQwwimyba6914-51-98 18:07:00 Test Item Value Reference Range Interpretation Comments Ferritin (test code = 489.86 ng/mL 5-275 H 2276-4) VALENTE (test code = VALENTE) Java Sql Developer ID - NTP Lab Interpretation (test Abnormal code = 79894-5) [facility] DistrictFERRITIN2020-06-20 18:07:00 Test Item Value Reference Range Interpretation Comments FERRITIN (KIRK) (test code = 489.86 ng/mL 5.00-275.00 H 361) Java Sql Developer ID - NTPCT, CHEST, WITHOUT [id number] 17:57:00Referring: Dr. Rowdy LopestFINAL REPORT CT of [...] [place] Verified Date/Time: 01/15/2020 17:57:54 Reading Location: [address] Ortho Consult Reading Room CT chest without IV rzqgntbk9546-28-79 17:57:00Interface, External Ris In - 01/15/2020 6:00 [...] MDReport Verified Date/Time: 01/15/2020 17:57:54 Reading Location: [facility] C013X Ortho Consult Reading Room [facility] 2020-01-15 17:27:00 Test Item Value Reference Range Interpretation Comments TSH (test code = 74905-4) 5.549 0.350- 4.940 uIU/mL H VALENTE (test code = VALENTE) Java Sql Developer ID - DB Lab Interpretation (test Abnormal code = 74857-1) [facility] DistrictVitamin D, 35-Wrwqevg9886-81-20 17:27:00 Test Item Value Reference Range Interpretation Comments Vitamin D 25-Hydroxy 6.2 ng/mL 6.6-49.9 L (test code = 2764) VALENTE (test code = VALENTE) Effective 05/07/2017: Reference Range ChangeNew: 6.6-49.9 ng/mL Previous: 13.0-47.8 ng/mL Recommended Vitamin D Target Range: 30.0-40.0 ng/mLOperator ID - DB Lab Interpretation (test Abnormal code = 78019-7) [facility] DistrictAlpha fetoprotein (AFP), tumor tpcqus9623-43-05 17:27:00 Test Item Value Reference Range Interpretation Comments Alpha-Fetoprotein (test code <2.0 <10.0 ng/mL = 1834-1) VALENTE (test code = VALENTE) Java Sql Developer ID - DB Lab Interpretation (test Normal code = 07916-2) [facility] DistrictVITAMIN D, [id number] 17:27:00 Test Item Value Reference Range Interpretation Comments VITAMIN D 25-OH (BEAKER) (test code 6.2 ng/mL 6.6-49.9 L = 2764) Effective 05/07/2017: Reference Range ChangeNew: 6.6-49.9 ng/mL Previous: 13.0-47.8 ng/mLRecommended Vitamin D Target Range: 30.0-40.0 ng/mLOperator ID - [id number] 17:27:00 Test Item Value Reference Range Interpretation Comments THYROID STIMULATING HORMONE 5.549 uIU/mL 0.350-4.940 H (BEAKER) (test code = 772) Java Sql Developer ID - DBALPHA FETOPROTEIN (AFP), TUMOR [id number] 17:27:00 Test Item Value Reference Range Interpretation Comments ALPHA-FETOPROTEIN (BEAKER) (test code < ng/mL <10.0 = 1094) Java Sql Developer ID - DBHepatitis B surface jeqrmct3219-50-38 17:25:00 Test Item Value Reference Range Interpretation Comments HBsAg Screen (test code Nonreactive Nonreactive = 5195-3) VALENTE (test code = VALENTE) Specimen is considered negative for HBsAg. Lab Interpretation (test Normal code = 69389-5) [facility] DistrictHebourbon community hospitaltis B surface evjuddnb5548-59-41 17:25:00 Test Item Value Reference Range Interpretation Comments Hep B S Ab (test code = 25.0 <8.0 mIU/mL H 56074-0) VALENTE (test code = VALENTE) Java Sql Developer ID - DB Lab Interpretation (test Abnormal code = 12329-1) [facility] DistrictHepatitis C pshhdhtx2586-39-19 17:25:00 Test Item Value Reference Range Interpretation Comments Hepatitis C Ab (test code = Nonreactive Nonreactive 41471-7) VALENTE (test code = VALENTE) Java Sql Developer ID - DB Lab Interpretation (test Normal code = 31106-0) [facility] DistrictHEJAMES [facility]. HAG[facility] HOSPITALTIS B SURFACE [id number] 17:25:00 Test Item Value Reference Range Interpretation Comments HEPATITIS B SURFACE ANTIGEN (2) Nonreactive Nonreactive (BEAKER) (test code = 2585) Specimen is considered negative for HBsAg.HEPATITIS B SURFACE IEOBNANU7370-93-05 17:25:00 Test Item Value Reference Range Interpretation Comments HEPATITIS B SURFACE ANTIBODY 25.0 mIU/mL <8.0 H (BEAKER) (test code = 647) Java Sql Developer ID - DBHEPATITIS C [id number] 17:25:00 Test Item Value Reference Range Interpretation Comments HEPATITIS C ANTIBODY (BEAKER) Nonreactive Nonreactive (test code = 367) Java Sql Developer ID - DBCarcinoembryonic Antigen (CEA)2020-01-15 17:23:00 Test Item Value Reference Range Interpretation Comments CEA, SERUM (test code = 7.9 ng/mL 0-5 H 2038-) VALENTE (test code = VALENTE) Java Sql Developer ID - DB Lab Interpretation (test Abnormal code = 07965-2) [facility] DistrictHepatitis B core antibody, [id number] 17:23:00 Test Item Value Reference Range Interpretation Comments Hep B C IgM (test code = Nonreactive Nonreactive 14392-0) VALENTE (test code = VALENTE) Java Sql Developer ID - DB Lab Interpretation (test Normal code = 78607-7) [facility] DistrictHepatitis A antibody, [id number] 17:23:00 Test Item Value Reference Range Interpretation Comments Hep A IgM (test code = Nonreactive Nonreactive 27651-5) VALENTE (test code = VALENTE) Java Sql Developer ID - DB Lab Interpretation (test Normal code = 71927-4) [facility] DistrictCARCINOEMBRYONIC ANTIGEN (CEA)2020-01-15 17:23:00 Test Item Value Reference Range Interpretation Comments CARCINOEMBRYONIC ANTIGEN (BEAKER) 7.9 ng/mL 0.0-5.0 H (test code = 685) Java Sql Developer ID - DBHEPATITIS B CORE ANTIBODY, [id number] 17:23:00 Test Item Value Reference Range Interpretation Comments HEPATITIS B CORE IGM ANTIBODY Nonreactive Nonreactive (BEAKER) (test code = 645) Java Sql Developer ID - DBHEPATITIS A ANTIBODY, [id number] 17:23:00 Test Item Value Reference Range Interpretation Comments HEPATITIS A IGM ANTIBODY (BEAKER) Nonreactive Nonreactive (test code = 498) Java Sql Developer ID - DBRAD, MANDIBLE, MIN 4 [id number] 17:22:00Referring: Dr. Rowdy Zhang for exam:->liver transplant [...] Alvarado Verified Date/Time: 01/15/2020 17:22:12 Reading Location: [address] Transitional Reading Room XR mandible min 4 nmwoa1327-21-81 17:22:00Interface, External Ris In - 01/15/2020 5:24 [...] Alvarado Verified Date/Time: 01/15/2020 17:22:12 Reading Location: [facility] C[facility] 2 [id number] 17:16:00Referring: Dr. Rowdy Zhang for exam:->liver transplant [...] Alvaradoort Verified Date/Time: 01/15/2020 17:16:49 Reading Location: [facility] C013 Transitional Reading Room XR chest 2 [id number] 17:16:00Interface, External Ris In - 01/15/2020 5:19 [...] Alvarado Verified Date/Time: 01/15/2020 17:16:49 Reading Location: [facility] C013 Transitional Reading Room [facility] 2D Echo W/Doppler(CW/PW/Color)2020-01-15 17:15:41[facility] MKCKESSON CPACSInterface, External Ris In - 01/15/2020 5:15 PM C DTTransthoracic Echocardiography Report (TTE) Demographics Patient Name CICI CALDERON Date of Study 01/15/2020 ALYSE Gender Female Visit Number [id number] Race Unknown Room Number 1515 Number Date of 1955 Referring Physician Ren Hernandez MD Age 64 year(s) Animal Scientist Lisa Bautista [facility] Interpreting Jai Arreguin MD Physician [...] CO: 7.05 l/min LVOT CI: 3.67 l/min/m^2[facility] HospitalCOMPREHENSIVE METABOLIC [id number] 17:06:00 Test Item Value Reference Range Interpretation [...] S NOT APPLICABLE FOR DIALYSIS PATIEN TS. Java Sql Developer ID - NTPSpecimen moderately phqtwxqUthoipxhpx2683-77-59 17:03:00 Test Item Value Reference Range Interpretation Comments Fibrinogen (test code = 3255-7) 114 mg/dl 225-434 L Lab Interpretation (test code = Abnormal 85920-2) [facility] DistrictFIBRINOGEN2020-06-20 17:03:00 Test Item Value Reference Range Interpretation Comments FIBRINOGEN LEVEL (BEAKER) (test 114 mg/dl 225-434 L code = 658) Plqbsnzcecf5687-38-35 17:00:00 Test Item Value Reference Range Interpretation Comments Transferrin (test code = 102 mg/dL 174-382 L 3034-6) VALENTE (test code = VALENTE) Java Sql Developer ID - DBSpecimen moderately icteric Lab Interpretation (test Abnormal code = 90071-1) [facility] DistrictIron, TIBC, % sat. (without ferritin)2020-01-15 17:00:00 Test Item Value Reference Range Interpretation Comments Iron (test code = 2498-4) 144.0 ug/dL 40-160 TIBC (test code = 2500-7) 129 ug/dL 250-450 L Iron % Saturation (test code 112 % 20-55 H = 2502-3) VALENTE (test code = VALENTE) Java Sql Developer ID - DB Lab Interpretation (test Abnormal code = 18857-7) [facility] DistrictTRANSFERRIN2020-06-20 17:00:00 Test Item Value Reference Range Interpretation Comments TRANSFERRIN (BEAKER) (test code = 102 mg/dL 174-382 L 541) Java Sql Developer ID - DBSpecimen moderately ictericIRON, TIBC, % SAT. (WITHOUT FERRITIN) 2020-01-15 17:00:00 Test Item Value Reference Range Interpretation Comments IRON (BEAKER) (test code = 547) 144.0 ug/dL 40.0-160.0 TOTAL IRON BINDING CAPACITY 129 ug/dL 250-450 L (BEAKER) (test code = 769) IRON % SATURATION (2) (BEAKER) 112 % 20-55 H (test code = 2590) Java Sql Developer ID - YKKegli-4-tgijanwpnok6064-06-20 16:59:00 Test Item Value Reference Range Interpretation Comments A-1 Antitrypsin (test code = 121.20 mg/dL 90-200 1825-9) VALENTE (test code = VALENTE) Java Sql Developer ID - DB Lab Interpretation (test Normal code = 36079-6) [facility] DistrictBILIRUBIN, [id number] 16:59:00 Test Item Value Reference Range Interpretation Comments BILIRUBIN DIRECT 1.6 mg/dL 0.1-0.5 H Specimen sl ightly (BEAKER) (test code = hemoly zed 706) Java Sql Developer ID - DLSTYGFD-9-LDKSEUXETOD3619-06-20 16:59:00 Test Item Value Reference Range Interpretation Comments ALPHA-1 ANTITRYPSIN (BEAKER) 121.20 mg/dL 90.00-200.00 (test code = 502) Java Sql Developer ID - RTCesetaw3311-50-29 16:58:00 Test Item Value Reference Range Interpretation Comments Ethanol Lvl (test code = <10 <=10 mg/dL 5643-2) VALENTE (test code = VALENTE) Java Sql Developer ID - DB Lab Interpretation (test Normal code = 56299-4) [facility] DistrictaPTT2020-06-20 16:58:00 Test Item Value Reference Range Interpretation Comments PTT (test code = 52757-3) 36.8 22.5- 36.0 seconds H Lab Interpretation (test code = Abnormal 09771-3) [facility] DistrictAPTT2020-06-20 16:58:00 Test Item Value Reference Range Interpretation Comments PARTIAL THROMBOPLASTIN TIME 36.8 seconds 22.5-36.0 H (BEAKER) (test code = 760) [id number] 16:58:00 Test Item Value Reference Range Interpretation Comments ETHANOL (BEAKER) (test code = 400) < mg/dL <=10 Java Sql Developer ID - DBPROTHROMBIN TIME/OCY2765-20-64 16:57:00 Test Item Value Reference Range Interpretation [...] is2.5-3.5 for patients wiht mechanical heart valves.CALCIUM, [id number] 16:45:00 Test Item Value Reference Range Interpretation Comments CALCIUM IONIZED (BEAKER) (test 1.08 mmol/L 1.12-1.27 L code = 698) PH, BLOOD (BEAKER) (test code = 7.38 1810) CREATININE, RANDOM [id number] 13:46:00 Test Item Value Reference Range Interpretation Comments CREATININE URINE (BEAKER) (test 280.7 mg/dL code = 375) Reference Range: No NormalsOperator ID - NTPSODIUM, RANDOM [id number] 13:46:00 Test Item Value Reference Range Interpretation Comments SODIUM URINE (BEAKER) (test code = < meq/L 243) Reference Range: No NormalsOperator ID - NTPHepatitis panel, [id number] 13:05:00 Test Item Value Reference Range Interpretation Comments Hep A IgM (test code = Nonreactive Nonreactive 08428-1) Hep B C IgM (test code = Nonreactive Nonreactive 69151-7) Hepatitis C Ab (test code = Nonreactive Nonreactive 11880-0) HBsAg Screen (test code = Nonreactive Nonreactive 5195-3) VALENTE (test code = VALENTE) Java Sql Developer ID - NTP Lab Interpretation (test Normal code = 13797-6) [facility] DistrictHEPATITIS PANEL, [id number] 13:05:00 Test Item Value Reference Range Interpretation Comments HEPATITIS A IGM ANTIBODY (BEAKER) Nonreactive Nonreactive (test code = 498) HEPATITIS B CORE IGM ANTIBODY Nonreactive Nonreactive (BEAKER) (test code = 645) HEPATITIS C ANTIBODY (BEAKER) Nonreactive Nonreactive (test code = 367) HEPATITIS B SURFACE ANTIGEN (2) Nonreactive Nonreactive (BEAKER) (test code = 2585) Java Sql Developer ID - NTPLipid [id number] 11:51:00 Test Item Value Reference Range Interpretation Comments Triglycerides (test 86 mg/dL code = 2571-8) Cholesterol (test code 101 mg/dL = 2093-3) HDL (test code = 12 mg/dL 2085-9) LDL Calculated (test 72 mg/dL code = 93975-8) VALENTE (test code = VALENTE) Triglyceride Reference Range: Low Risk <150 Borderline 150-199 High Risk 200-499 Very High Risk >=500 Cholesterol Reference Range: Low Risk <200 Borderline 200-239 High Risk >240 HDL Cholesterol Reference Range: Low Risk >=60 High Risk <40 LDL Cholesterol Reference Range: Optimal <100 Near Optimal 100-129 Borderline 130-159 High 160-189 Very High >=190 Java Sql Developer ID - NTPSpecimen moderately icteric [facility] DistrictGamma Glutamyl Transferase (GGT)2020-01-15 11:51:00 Test Item Value Reference Range Interpretation Comments GGT (test code = 2324-2) 15 U/L 9-64 VALENTE (test code = VALENTE) Java Sql Developer ID - NTPSpecimen moderately icteric Lab Interpretation (test Normal code = 76558-0) [facility] DistrictUric [id number] 11:51:00 Test Item Value Reference Range Interpretation Comments Uric Acid (test code = 15.7 mg/dL 2.6-7.2 H 3084-1) VALENTE (test code = VALENTE) Java Sql Developer ID - NTPSpecimen moderately icteric Lab Interpretation (test Abnormal code = 89252-3) [facility] DistrictURIC [id number] 11:51:00 Test Item Value Reference Range Interpretation Comments URIC ACID (BEAKER) (test code = 15.7 mg/dL 2.6-7.2 H 773) Java Sql Developer ID - NTPSpecimen moderately ictericLIPID [id number] 11:51:00 Test Item Value Reference Range Interpretation [...] Borderline 130-159 High 160-189 Very High >=190 Java Sql Developer ID - NTPSpecimen moderately jdyuufhSXPQQWPUQD3017-86-62 11:51:00 Test Item Value Reference Range Interpretation Comments PHOSPHORUS (BEAKER) (test code = 4.5 mg/dL 2.3-4.7 604) Java Sql Developer ID - NTPGAMMA GLUTAMYL TRANSFERASE (GGT)2020-01-15 11:51:00 Test Item Value Reference Range Interpretation Comments GAMMA GLUTAMYL TRANSFERASE (BEAKER) 15 U/L 9-64 (test code = 364) Java Sql Developer ID - NTPSpecimen moderately ictericCBC W/PLT COUNT & AUTO [id number] 11:25:00 Test Item Value Reference Range Interpretation [...] CONCENTRATION Decreased (CELLAVISION)(BEAKER) (test code = 3438) Java Sql Developer ID - [id number] ID - Ana Laura James comments: Slide comments: [id number] 10:20:00 Test Item Value Reference Range Interpretation Comments MAGNESIUM (BEAKER) (test code = 2.2 mg/dL 1.6-2.6 627) Java Sql Developer ID - ADMJbsnrxy2619-24-18 08:57:00 Test Item Value Reference Range Interpretation Comments Ammonia (test code = 19 18- 72 mol/L 21405-5) VALENTE (test code = VALENTE) Java Sql Developer ID - NTP Lab Interpretation (test Normal code = 70940-1) [facility] DistrictAMMONIA2020-06-20 08:57:00 Test Item Value Reference Range Interpretation Comments AMMONIA (BEAKER) (test code = 348) 19 mol/L 18-72 Java Sql Developer ID - NTPHEPATIC FUNCTION XDJTY1418-07-02 05:21:00 Test Item Value Reference Range Interpretation [...] (test code = 12 U/L 6-55 347) Java Sql Developer ID - DALTON MSpecimen moderately ictericBASIC METABOLIC [id number] 05:15:00 Test Item Value Reference Range Interpretation [...] S NOT APPLICABLE FOR DIALYSIS PATIEN TS. Java Sql Developer ID - DALTON MSpecimen moderately ictericPROTHROMBIN TIME/[id number] 04:37:00 Test Item Value Reference Range Interpretation [...] Detected Not Detected, (test code = Negative 80306-9) SARS-COV-2 [facility] PERFORMING LAB (test code = 17631-6) VALENTE (test code = Negative results do [...] of the Act. Fact Sheet for Healthcare Providers:https://www.Contur/Documents/Xper t%20Xpress%20SARS%20CoV- 2/Fact%20Sheets/302-3802 %53ZBTF-HLP-4%20HEALTHCA RE%20PROVIDERS%20FACT%20 SHEET.pdf Fact Sheet for Healthcare Patients:https://www.Gourmant/Documents/Xpert %20Xpress%20SARS%20CoV-2 /Fact%20Sheets/302-3801% 57LFVD-FPT-7%20PATIENT%2 0FACT%20SHEET.pdf Performing Laboratory:[facility] [place] [address] [place], [place] [address]ARS-COV2/RT-PCR ([facility])2020-01-15 01:48:00 Test Item Value Reference Range Interpretation Comments SARS-COV2/RT-PCR (test Not Detected Not Detected, Negative code = 1967544) SARS-COV-2 PERFORMING LAB [facility] (test code = 9627007) Negative results do not preclude SARS-CoV-2 infection [...] of the Act.Fact Sheet for Healthcare Pro viders:https://www.PenPath/Documents/Xpert%20Xpress%20SARS%20CoV-2/Fact%20Sh eets/302-3802%89WYDH-LJR-1%20HEALTHCARE%20PROVIDERS%20FACT%20SHEET.pdfFact Sheet for Healthcare Patients:https://www.UniversityNow.Liibook/Documents/Xpert%20Xpress%20SARS%20CoV-2/Fact%20Sheets/302-3801%20SARS-COV -2%20PATIENT%20FACT%20SHEET.pdfPerforming Laboratory:[place] [address], [place] [address]SZQKQ METABOLIC [id number] 22:40:00 Test Item Value Reference Range Interpretation [...] S NOT APPLICABLE FOR DIALYSIS PATIEN TS. Java Sql Developer ID - DBSpecimen moderately ictericHEPATIC FUNCTION [id number] 22:39:00 Test Item Value Reference Range Interpretation [...] Specimen slightly (test code = 347) hemolyzed Java Sql Developer ID - DBSpecimen moderately ictericPROTHROMBIN TIME/[id number] 22:28:00 Test Item Value Reference Range Interpretation [...] mechanical heart valves.CBC W/PLT COUNT & AUTO QYUXMFPMKTRK1258-01-00 22:22:00 Test Item Value Reference Range Interpretation [...] code = 2801) ALPHA FETOPROTEIN (AFP), TUMOR [id number] 18:31:00 Test Item Value Reference Range Interpretation Comments ALPHA-FETOPROTEIN (BEAKER) (test code < ng/mL <10.0 = 1094) Java Sql Developer ID - DBBASIC METABOLIC [id number] 15:23:00 Test Item Value Reference Range Interpretation [...] S NOT APPLICABLE FOR DIALYSIS PATIEN TS. Java Sql Developer ID - BSPlease sent STATSpecimen moderately ictericHEPATIC FUNCTION [id number] 15:18:00 Test Item Value Reference Range Interpretation [...] (test code = 17 U/L 6-55 347) Java Sql Developer ID - BSPlease sent STATSpecimen moderately ictericPROTHROMBIN [...] for patients wiht mechanical heart valves.[facility] sent [facility] & AUTO [id number] 15:05:00 Test Item Value Reference Range Interpretation [...] (BEAKER) (test code = 2801) CT, ABDOMEN, [id number] 15:58:00Referring: Dr. Reno SweattFINAL REPORT CT OF [...] MDReport Verified Date/Time: 05/02/2017 15:58:35 Reading Location: [facility] C013Y CT Body Reading Room CBC W/PLT COUNT & AUTO [id number] 17:30:00 Test Item Value Reference Range Interpretation [...] code = 417) 0.00ALPHA FETOPROTEIN (AFP), TUMOR [id number] 16:31:00 Test Item Value Reference Range Interpretation Comments ALPHA-FETOPROTEIN (BEAKER) (test 3.3 ng/mL <10.0 code = 1094) Effective 06/14/2014: Reference Range ChangeNew: <10.0 Previous: 0.0-8.0 BASIC METABOLIC [id number] 16:13:00 Test Item Value Reference Range Interpretation [...] FOR DIALYSIS PATIEN TS. Specimen slightly ictericLIPID [id number] 16:13:00 Test Item Value Reference Range Interpretation [...] Very High >=190 Specimen slightly ictericHEPATIC FUNCTION [id number] 16:13:00 Test Item Value Reference Range Interpretation [...] (test code = 364) Specimen slightly ictericPROTHROMBIN TIME/[id number] 16:13:00 Test Item Value Reference Range Interpretation [...]
--- OUTSIDE RECORDS SUMMARY | 2020-03-31 08:49 | XMS REPORT ---
[...] Status Dosage System Date Date Gabapentin ND 09990182342 100 MG Orally January Active 1 c apsule Once a day 2019 Lactulose ND 20968164861 20 GM/30ML Active 15 ml Orally Once a day Cimetidine ND 90013098353 200 MG Orally Active 1 t ablet as Once a day needed Albuterol ND 38287648914 108 (90 Base) October Active 1 pu ff as Sulfate HFA MCG/ACT 09, needed Inhalation 2019 every 6 hrs Calcitriol ND 84317632839 0.5 MCG Orally Active 1 capsule Once a day Triamcinolone ND 88601529387 0.1 % January Active 1 appl ication Acetonide Externally , Twice a day 2019 Results No Known Results Immunizations Vaccine Administration Date Hepatitis A (adult) February 21, 2020 Hepatitis B (adult) February 21, 2020 Summary Purpose eClinicalWorks Submission
[2020-03-31 09:24] VITALS: BP 121/40; TEMP 97.8; O2SAT 98; BMI 36.1
--- NOTE | 2020-03-31 09:58 | RAD REPORT ---
EXAM DESCRIPTION: US - Paracentesis Proc Guidance - 03/31/2020 9:38 am CLINICAL HISTORY: ASCITES Ascites COMPARISON: Paracentesis Proc Guidance dated 03/20/2020 FINDINGS: Informed consent was obtained and time-out was performed. Patient's abdomen was prepped and draped in the usual sterile fashion. 1% lidocaine was used for loca l anesthetic purposes. A small skin incision was made in the right lower quadrant. A paracentesis catheter was guided into t he peroneal cavity under sonographic guidance. A small amount of fluid was sent for requested lab studies. A large volume paracentesis was performed . The patient tolerated the procedure well. Patient was administered IV albumin per protocol following the procedure. IMPRESSION: Successful ultrasound-guided paracentesis.
[2020-03-31] MEDS ORDERED: ALBUMIN HUMAN 25% 200 ML IV ONE (10:34)
[2020-03-31 13:09] LABS: Body Fluid Source PERITONEAL; Color of fluid Yellow (COLORLESS)
[2020-03-31 13:10] LABS: Appearance CLEAR (CLEAR); Body Fluid WBC 39 /mm^3
== END 2020-03-31 11:29 | disposition home or self-care (01) ==
LOC: DS 08:37
PROVIDERS: ATTEND Internal Medicine Gastroenterology
DX: R18.8 Other ascites (principal); K70.0 Alcoholic fatty liver; K74.69 Other cirrhosis of liver; R17 Unspecified jaundice; R14.0 Abdominal distension (gaseous)
CPT/HCPCS: 87070; 36415; 89050; 96365; 49083; P9047

== ENCOUNTER 2020-04-14 07:16 | Day surgery (SDC) | payer OTHER ==
--- OUTSIDE RECORDS SUMMARY | 2020-04-14 07:19 | XMS REPORT | Clinical Summary ---
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
--- OUTSIDE RECORDS SUMMARY | 2020-04-14 07:22 | XMS REPORT | Clinical Summary ---
:1955 Author Organization [facility] Address [address] [place] [address] Care Team Providers Name Role Phone Zeinab English JUAN Primary Care Provider Allergies Active Allergy Reactions Severity Noted Date Comments Erythromycin Hives Medium 07/01/2016 Levofloxacin Other (See Comments) High 07/01/2016 Vomitin g and diarrhea Sulfa (Sulfonamide Rash Low 07/01/2016 Antibiotics) Tetracyclines Hives High 07/01/2016 Medications Medication Sig Dispensed Refills Start End Date Status Date rifAXIMin 550 mg Take 1 tablet 60 tablet 3 Active Tab (550 mg total) by 0 mouth 2 (two) times daily. pantoprazole Take 1 tablet (40 30 tablet 3 Active (PROTONIX) 40 MG mg total) by 0 tablet mouth daily. lactulose Take 30 mLs (20 g 2000 mL 3 Ac tive (CHRONULAC) 20 total) by mouth 3 0 gram/30 mL solution (three) times daily. spironolactone Take 25 mg by 0 A ctive (ALDACTONE) 25 MG mouth daily. tablet ergocalciferol Take 1 capsule 4 capsule 2 04/11/20 Active (ERGOCALCIFEROL) (50,000 Units 0 21 1,250 mcg (50,000 total) by mouth unit) once a week. capsuleIndications: Cirrhosis of liver without ascites, unspecified hepatic cirrhosis type (HCC), Vitamin D deficiency magnesium oxide Take 1 tablet 30 tablet 2 Active (MAG-OX) 400 mg (400 mg total) by 0 (241.3 mg mouth daily. magnesium) tabletIndications: Cirrhosis of liver without ascites, unspecified hepatic cirrhosis type (HCC), Magnesium deficiency folic acid Take 1 tablet (1 90 tablet 2 04/11/20 Ac tive (FOLVITE) 1 MG mg total) by 0 21 tabletIndications: mouth daily. Cirrhosis of liver without ascites, unspecified hepatic cirrhosis type (HCC) calcitrioL Take 1 capsule 30 capsule 2 Act rosalba (ROCALTROL) 0.5 MCG (0.5 mcg total) 0 capsuleIndications: by mouth daily. Cirrhosis of liver without ascites, unspecified hepatic cirrhosis type (HCC) ranitidine (ZANTAC) Take 150 mg by 0 [...] (ROCALTROL) 0.5 MCG mouth daily. 20 capsule calcitrioL Take 1 capsule 30 capsule 0 04/11/20 Dis continued (ROCALTROL) 0.5 MCG (0.5 mcg total) 0 20 capsule by mouth daily. traMADoL (ULTRAM) Take 1 tablet (50 30 [...] oxide Take 1 tablet 30 tablet 0 04/11/20 Discontinued (MAG-OX) 400 mg (400 mg total) by 0 20 (241.3 mg mouth daily. magnesium) tablet folic acid Take 1 tablet (1 90 tablet 0 04/11/20 Di scontinued (FOLVITE) 1 MG mg total) by 0 20 tablet mouth daily. ergocalciferol Take 1 capsule 4 capsule 0 04/11/20 Discontinued (ERGOCALCIFEROL) (50,000 Units 0 20 1,250 mcg (50,000 total) by mouth unit) capsule once a week. rifAXIMin 550 mg Take 1 tablet 60 [...] Encounters Date Type Specialty Care Team Description 04/12/2020 Orders Only Transplant Hepatology Cary Talley organ transplant status (Primary Dx); R, RN 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, unspecified hepatic cirrhosis type (HCC); Encounter for s creening mammogram for malignant neoplasm of breast ; Hepatic cirrhos is, unspecified hepatic cirrhosis type, unspecified whether ascites present (HCC) 04/12/2020 Telephone Transplant Hepatology Cary Talley ow-up R, RN 04/12/2020 Telephone Transplant Hepatology Cary Talley ow-up R, RN 04/12/2020 Documentation Transplant Hepatology Brigitte Hamilton 04/11/2020 Hospital Encounter [place], Kristofer Cirrhosis of liver without ascites, unspecified hepatic cirrhosis type (HCC); MD Nhi Pre-transplant evaluation for liver transplant 04/11/2020 Follow-Up Transplant Hepatology [place], Kristofer Cirrho sis of liver without ascites, unspecified hepatic cirrhosis type (HCC) (Primary Dx); MD Nhi Awaiting organ transplant status; Roxana Cartagena Screening for malignant neoplasm; MD Yuriy Vitamin D defic iency; Magnesium defic iency 04/11/2020 Orders Only Transplant Hepatology [place], Kristofer Cirrho sis of liver without ascites, unspecified hepatic cirrhosis type (HCC); MD Nhi Awaiting organ transplant status; Screening for m alignant neoplasm 04/11/2020 Documentation Transplant Hepatology Cary Talley, RN 04/10/2020 Documentation Transplant Hepatology Hamilton, Micheyl 04/10/2020 Documentation Transplant Hepatology Hamilton, Micheyl 04/10/2020 Orders Only Transplant Hepatology Cary Talley Cirr hosis of liver without ascites, unspecified hepatic cirrhosis type (HCC) (Primary Dx); R, RN Awaiting organ transplant status; Screening for m alignant neoplasm 04/06/2020 Telephone Hepatology José Sahni H, MA 03/20/2020 Documentation Transplant Hepatology Hamilton, Micheyl 03/14/2020 Documentation Transplant Hepatology Cary Talley R, RN 03/10/2020 Orders Only Transplant Hepatology Cary [...] R, RN 02/16/2020 Documentation Transplant Hepatology Hamilton, Micheyl 02/16/2020 Documentation Transplant Hepatology Hamilton, Micheyl 02/16/2020 Documentation Central Scheduling Hamilton, Micheyl 02/16/2020 Orders Only Transplant Hepatology Cary Talley [...] evaluation for liver transplant; Acute and subac [place] hepatic failure with coma (HCC) 02/15/2020 Telephone Transplant Hepatology Cary Talley meld update R, RN 02/15/2020 Telephone Transplant Hepatology Cary Talley R RN 02/15/2020 Orders Only Transplant Hepatology Areli [...] Orders Only Hepatology Larry, Line Hepatic Kastrup, HUMANITIES PROFESSOR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) 02/03/2020 Documentation Hepatology [...] (HCC) 02/01/2020 Telephone Transplant Hepatology Cary Talley Only R RN 01/31/2020 Documentation Intensive Care Al-Atwood, Ruaa Conrad 01/31/2020 Documentation Transplant Hepatology Cary Talley R RN 01/31/2020 Telephone Transplant Hepatology Cary Talley r R RN 01/31/2020 Telephone Transplant Hepatology Cary Talley endo crine clearance R, RN 01/21/2020 Abstract Transplant Hepatology Poonam Martínez 01/20/2020 Documentation Transplant Hepatology Poonam Martínez 01/20/2020 Abstract Transplant Hepatology Inge Salazar MA 01/19/2020 Surgery Nallely, R & L SIDDHARTHA / MD Brian CORONARY ANGIOS (+/- LV) 01/18/2020 Outside Orders Radiology Mitzy English, HUMANITIES PROFESSOR 01/17/2020 Anesthesia Event Gastroenterology Vinicius, Tigist Gottlieb CRNA 01/17/2020 Surgery Gastroenterology Sylvie George UPPER MD [...] testing; Ramone, Hepatorenal syn drome (HCC); Graciela Ramirezeoma, Hyponatremia; Pre-transplant evaluation for liver transplant; Encounter [...] Line Obesity (BMI 35.0-39.9 without comorbidity); Kastrup, HUMANITIES PROFESSOR Adrenal mass, l eft ; Screening for m alignant neoplasm; Elevated serum creatinine; Other ascites 12/31/2019 Telephone Hepatology Dai Healy MA 12/21/2019 Documentation Hepatology Kadie Larry KasJAYNE echeverriaP 12/17/2019 Abstract Hepatology Ivanna Healy MA 12/16/2019 Abstract Hepatology Janna Aparicio RN 12/16/2019 Abstract Hepatology Janna Aparicio RN 12/16/2019 Abstract Hepatology Janna Aparicio RN 12/15/2019 Audio - Hepatology Kadie Larry Portal hypert ension (Primary Dx); Telemedicine JAYNE CrawfordP 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); Obesity (BMI 35 .0-39.9 without comorbidity); Adrenal mass, l eft ; Screening for m alignant neoplasm 12/14/2019 Telephone Hepatology José Sahni Appointment AMRIT [place] after 04/14/2019 Family History Medical History Relation Name Comments [...] Vital Sign Reading Time Taken Blood Pressure 104/43 04/11/2020 9:39 AM CDT Pulse 85 04/11/2020 9:39 AM CDT Temperature 36.3 C (97.3 F) 04/11/2020 9:39 AM CDT Respiratory Rate 18 04/11/2020 9:39 AM CDT Oxygen Saturation 95% 04/11/2020 9:39 AM CDT Inhaled Oxygen Concentration 28% 01/23/2020 7:30 PM CDT Weight 85 kg (187 lb 4.8 oz) 04/11/2020 9:39 A M CDT Height 162.6 cm (5' 4") 04/11/2020 9:39 AM CDT Body Mass Index 32.15 04/11/2020 9:39 AM CDT Plan of Treatment Health Maintenance Due Date Last Done Comments BREAST CANCER SCREENING 1955 CERVICAL CANCER SCREENING PAP ONLY (Age 1207/08/1976 21-65) PNEUMOCOCCAL 65+ LOW/MEDIUM RISK (1 of 2 - 2019 PCV13) Medicare IPPE (WELCOME TO MEDICARE) 07/28/2019 INFLUENZA VACCINE (#1) 2020 LIPID PANEL 01/14/2023 01/15/2020, 10/23/2016 COLON CANCER SCREENING COLONOSCOPY 01/16/2030 01/17/2020 Procedures Procedure Name Priority Date/Time Associated Comments Diagnosis XR DXA BONE DENSITY Routine 04/11/2020 11:51 Cirrhosis of live r Results for this STUDY AM CDT without ascites, procedure a re in unspecified hepatic the resu lts cirrhosis type section. (HCC) Pre-transplant evaluation for liver transplant CBC W/PLT COUNT & Routine 04/11/2020 11:13 Cirrhosis of liver Results for this AUTO DIFFERENTIAL AM CDT without ascites, proced ure are in unspecified hepatic the resu lts cirrhosis type section. (HCC) Awaiting organ transplant status PROTHROMBIN TIME/INR Routine 04/11/2020 11:13 Cirrhosis of gerber er Results for this AM CDT without ascites, procedure a re in unspecified hepatic the resu lts cirrhosis type section. (HCC) Awaiting organ transplant status COMPREHENSIVE Routine 04/11/2020 11:13 Cirrhosis of liver Resu lts for this METABOLIC PANEL AM CDT without ascites, procedur e are in unspecified hepatic the resu lts cirrhosis type section. (HCC) Awaiting organ transplant status CBC W/PLT COUNT & Routine 04/11/2020 11:13 Cirrhosis of liver Results for this AUTO DIFFERENTIAL AM CDT without ascites, proced ure are in unspecified hepatic the resu lts cirrhosis type section. (HCC) Awaiting organ transplant status BILIRUBIN, DIRECT Routine 04/11/2020 11:13 Cirrhosis of liver Results for this AM CDT without ascites, procedure a re in unspecified hepatic the resu lts cirrhosis type section. (HCC) Awaiting organ transplant status ALPHA FETOPROTEIN Routine 04/11/2020 11:13 Cirrhosis of liver Results for this (AFP), TUMOR MARKER AM CDT without ascites, proc edure are in unspecified hepatic the resu lts cirrhosis type section. (HCC) Awaiting organ transplant statu s Screening for malignant neoplasm BILIRUBIN, DIRECT STAT 03/10/2020 8:03 Pre-transplant Resu [...] procedure are i n the results section. [id number] AP Routine 01/19/2020 9:43 PHENOTYP PM CDT [...] 452 ms QTC Calculation(Bazett) 458 ms P [place] 59 degrees R [place] 32 degrees T [place] 56 degrees Normal sinus rhythm Normal ECG [...] procedure are i n the results section. [id number]\\, Routine 01/15/2020 4:17 Re sults for this [...] are i n the results section. SARS-COV2/RT-PCR ([facility] STAT 01/14/2020 7:28 R esults for this [...] results hepatic cirrhosis section. type (HCC) after 04/14/2019 Results XR dxa bone density study (04/11/2020 11:51 AM CDT) Specimen Narrative Performed At FINAL REPORT [facility] Bone density study, 04/11/2020 Clinical History:Screening Bone mineral density measurement Lumbar spine0.866 gm/cm2 Femoral neck0.714 gm/cm2 Standard deviation from young adult popu lation (T-score) Lumbar spine-2.6 Femoral neck-2.3 Standard deviation for age adjusted popu lation (Z-score) Lumbar spine-1.7 Femoral neck-1.2 According to medical literature, this co rresponds to greater than 2 times increased risk of an osteoporotic fracture of the lumbar spine as compared to the young adult populatio n. The femoral neck bone mineral density corresponds to 1-2 times increased risk of an osteoporotic fracture as compared to the young adult population. 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 Diagnostic criteria for osteoporosis BMD:Bone mineral density Normal: BMD measurement less than one st andard deviation from young adult population Osteopenia: BMD measurement between 1 an d 2.5 standard deviations Osteoporosis: BMD measurement greater th an 2.5 standard deviations Severe osteoporosis: Osteoporosis and on e or more fragility fractures Signed: Jorge Brooks MD Report Verified Date/Time:04/11/2020 13:34:32 Reading Location: [address] Re ading Room Procedure Note Interface, External Ris In - 04/11/2020 1:36 PM CDT FINAL REPORT Bone density study, 04/11/2020 Clinical History: Screening Bone mineral density measurement Lumbar spine0.866 gm/cm2 Femoral neck0.714 gm/cm2 Standard deviation from young adult popu lation (T-score) Lumbar spine-2.6 Femoral neck-2.3 Standard deviation for age adjusted popu lation (Z-score) Lumbar spine-1.7 Femoral neck-1.2 According to medical literature, this co rresponds to greater than 2 times increased risk of an osteoporotic fracture of the lumbar spine as compared to the young adult populatio n. The femoral neck bone mineral density corresponds to 1-2 times increased risk of an osteoporotic fracture as compared to the young adult population. 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 Complete computer analysi s will be sent shortly. Diagnostic criteria for osteoporosis BMD: Bone mineral density Normal: BMD measurement less than one st andard deviation from young adult population Osteopenia: BMD measurement between 1 an d 2.5 standard deviations Osteoporosis: BMD measurement greater th an 2.5 standard deviations Severe osteoporosis: Osteoporosis and on e or more fragility fractures Signed: Jorge Brooks MD Report Verified Date/Time: 04/11/2020 1 3:34:32 Reading Location: [address] Mammo Re ading Room Performing Organization Address City/State/Zipcode Phone Number GE RIS CBC with platelet count + automated diff (04/11/2020 11:13 AM CDT)Only the most recent of16 resultswithin the time period is included. WBC 3.5 3.5 - 10.5 K/L [facility] RBC 2.51 (L) 3.93 - 5.22 M/L [facility] Hemoglobin 9.4 (L) 11.2 - 15.7 GM/DL [facility] Hematocrit 30.2 (L) 34.1 - 44.9 % [facility] MCV 120.3 (H) 79.4 - 94.8 fL [facility] MCH 37.5 (H) 25.6 - 32.2 pg [facility] MCHC 31.1 (L) 32.2 - 35.5 GM/DL [facility] RDW 14.6 (H) 11.7 - 14.4 % [facility] Platelets 57 (L) 150 - 450 K/CU MM [facility] MPV 10.4 9.4 - 12.3 fL [facility] nRBC 0 0 - 0 /100 WBC [facility] % Neutros 60 % [facility] % Lymphs 19 % [facility] % Monos 12 % [facility] % Eos 8 % [facility] % Baso 1 % [facility] # Neutros 2.09 1.56 - 6.13 K/L [facility] # Lymphs 0.67 (L) 1.18 - 3.74 K/L [facility] # Monos 0.43 (H) 0.24 - 0.36 K/L [facility] # Eos 0.28 0.04 - 0.36 K/L [facility] # Baso 0.02 0.01 - 0.08 K/L [facility] Immature 0 0 - 1 % [facility] Granulocytes-Relative MEDICAL CE NTER Specimen Blood Performing Organization Address City/[facility] Phone Number [address] [address] CENTER Alpha fetoprotein (AFP), tumor marker (04/11/2020 11:13 AM CDT)Only the most recent of3 resultswithin the time period is included. Alpha-Fetoprotein <2.0 <10.0 ng/mL [facility] Specimen Blood Narrative Performed At [place] ID - BS [facility] Performing Organization Address City/[facility] Hospital[facility] Phone Number [address] [address] CENTER Prothrombin time/INR (04/11/2020 11:13 AM CDT)Only the most recent of19 results within the time period is included. Protime 17.4 (H) 11.9 - 14.2 seconds [facility] INR 1.47 <=5.90 [facility] Specimen Blood Narrative Performed At Effective 12/23/2018: PT Reference Range [facility] Change New: 11.9-14.2Previous: 11.7-14.7 RECOMMENDED COUMADIN/WARFARIN INR THERAPY RANGES STANDARD DOSE: 2.0-3.0Includes: PROPHYLAXIS for venous thrombosis, systemic embolization; TREATMENT for venous thrombosis and/or pulmonary embolus. HIGH RISK: Target INR is 2.5-3.5 for patients wiht mechanical heart valves. Performing Organization Address [facility] [place]/[facility] Hospital[facility] Phone Number [address] [address] CENTER Bilirubin, direct (04/11/2020 11:13 AM CDT)Only the most recent of6 results within the time period is included. Bilirubin, Direct 1.9 (H) 0.1 - 0.5 mg/dL [facility] Specimen Blood Narrative Performed At [place] ID - BS [facility] Performing Organization Address City/State/Zipcode Phone Number [facility] [address] [place] [address] CENTER Comprehensive metabolic panel (04/11/2020 11:13 AM CDT)Only the most recent of10 resultswithin the time period is included. Protein, Total 6.5 6.0 - 8.3 gm/dL [facility] Albumin 3.1 (L) 3.5 - 5.0 g/dL [facility] Alkaline Phosphatase 108 40 - 150 U/L [facility] Total Bilirubin 3.5 (H) 0.2 - 1.2 mg/dL [facility] Sodium 135 (L) 136 - 145 meq/L [facility] Potassium 5.1 3.5 - 5.1 meq/L [facility] Chloride 105 98 - 107 meq/L [facility] CO2 22 22 - 29 meq/L [facility] BUN 40 (H) 7 - 21 mg/dL [facility] Creatinine 2.28 (H) 0.57 - 1.25 mg/dL [facility] ER Glucose 105 70 - 105 mg/dL [facility] Calcium 9.1 8.4 - 10.2 mg/dL [facility] AST 36 (H) 5 - 34 U/L [facility] ALT 15 6 - 55 U/L [facility] EGFR 21Comment: ESTIMATED GFR mL/min/1.73 sq m [facility] IS NOT ACCURATE [facility] CREATININE CLEARANCE IN PREDICTING GLOMERULAR FILTRATION RATE. ESTIMATED GFR IS NOT APPLICABLE FOR DIALYSIS PATIENTS. Specimen Blood Narrative Performed At [place] ID - BS [facility] Specimen moderately icteric Performing Organization Address City/State/Zipcode Phone Number [facility] [address] [place] [address] CENTER CBC with platelet count + automated diff [...] Agency Comment Performing Organization Information: Site ID: [id number] Name: [facility] Address: [address] [place] [id number] Director: Jj Carrasco Performing Organization Address City/[facility]/Zipcode Phone Number [facility] [address] [place] [address] [facility] Miscellaneous lab test (02/15/2020 12:29 PM CDT)Only the most recent of2 results within the time period is included. Scan Result [facility] Specimen Blood Narrative Performed At This result has an attachment that is no t available. Performing Organization Address City/[facility] Phone Number [facility] [address] [place], [place] Magnesium (02/15/2020 12:29 PM CDT)Only the most recent of13 resultswithin the time period is included. Magnesium 1.8 1.6 - 2.6 mg/dL [facility] CENTER Specimen Blood Narrative Performed At [place] ID - LM [facility] Performing Organization Address City/[facility] Phone Number [facility] [address] [place] [address] CENTER PLATELET ESTIMATION (02/08/2020 10:23 AM CDT) Platelet Estimate DECREASED (A) ADEQUATE [facility] Specimen Narrative Performed At FASTING:YES [facility] FASTING: YES Resulting Agency Comment Performing Organization Information: Site ID: [id number] Name: [facility] Address: [address] [place] [phone] Director: Jj Carrasco Performing Organization Address City/[facility]code Phone Number [facility] [address] [place] [address] [facility] RHYTHM STRIP - SCAN (01/27/2020 10:00 [...] perfo rmance characteristics have been determined by [facility]. It has not been cleared or approved by FDA. This assay has been validated pursuant to the CLIA regulations and is used for clinical purposes. Normetanephrine 213 (H) < OR = 148 pg/mL [facility] Comment: INCORPORATED This test was developed and its analytical perfo rmance characteristics have been determined by [facility]. It has not been cleared or approved [...] 2008. For additional information, please refer to http://education.SportsBlog.com.[employer]/faq/MetFra ctFree (This link is being provided for informational/e ducational purposes only.) This test was developed and its analytical perfo rmance characteristics have been determined by [facility]. It has not been cleared or approved by FDA. This assay has been validated pursuant to the CLIA regulations and is used for clinical purposes. Specimen Blood Narrative Performed At Performing Lab [facility] [address] [place] [address] Mark Encarnacion MD, PhD, AMINA Performing Organization Address City/State/Zipcode Phone Number [facility] [place] [phone] INCORPORATED [address] [facility] Calcium, Ionized (01/26/2020 3:50 AM CDT)Only the most recent of7 resultswithin the time period is included. Calcium, Ion 1.11 (L) 1.12 - 1.27 mmol/L [facility] pH, Blood 7.41 [facility] Specimen Blood Performing Organization Address City/[facility]/Zipcode Phone Number [facility] [address] [place] [address] CENTER Phosphorus (01/26/2020 3:50 AM CDT)Only the most recent of7 resultswithin the time period is included. Phosphorus 3.2 2.3 - 4.7 mg/dL [facility] Specimen Blood Narrative Performed At [place] ID - BS [facility] Performing Organization Address City/State/Zipcode Phone Number [facility] [address] [place] [address] CENTER Hepatic function panel (01/26/2020 3:50 AM CDT)Only the most recent of13 resultswithin the time period is included. Protein, Total 5.7 (L) 6.0 - 8.3 gm/dL [facility] Albumin 3.4 (L) 3.5 - 5.0 g/dL [facility] Total Bilirubin 6.9 (H) 0.2 - 1.2 mg/dL [facility] Bilirubin, Direct 2.2 (H) 0.1 - 0.5 mg/dL [facility] Alkaline Phosphatase 58 40 - 150 U/L [facility] AST 36 (H) 5 - 34 U/L [facility] ALT 13 6 - 55 U/L [facility] Specimen Blood Narrative Performed At [place] ID - BS [facility] Specimen moderately icteric Performing Organization Address City/State/Zipcode Phone Number [facility] [address] [place] [address] CENTER Manual Differential (01/25/2020 3:47 AM CDT)Only the most recent of7 results within the time period is included. % Neutros 66 % [facility] % Lymphs 24 % [facility] [facility] % Monos 7 % [facility] % Eos 2 % [facility] % Metamyelo 1 (H) 0 - 0 % [facility] # Neutros 0.92 (L) 1.56 - 6.13 K/ul [facility] # Lymphs 0.34 (L) 1.18 - 3.74 K/ul [facility] # Monos 0.10 (L) 0.24 - 0.36 K/uL [facility] # Eos 0.03 (L) 0.04 - 0.36 K/uL [facility] # Metamyelo 0.01 (H) 0.00 - 0.00 K/uL [facility] Total Counted 100 [facility] Smudge [facility] Present [facility] Giant Platelet Present [facility] Anisocytosis 2+ moderate [facility] Macrocytes [address]+ [address] [facility] Poikilocytes 2+ moderate [facility] Freddie Cells 2+ moderate [facility] Artifact Present [facility] Platelet Conc Decreased [facility] Specimen Blood Narrative Performed At [place] ID - [id number] [facility] [place] ID - Maria Del Carmen Anguiano User comments: Slide comments: Performing Organization Address City/State/Zipcode Phone Number [facility] [address] [place] [address] [place] Basic Metabolic Panel (01/25/2020 3:47 AM CDT)Only the most recent of10 results within the time period is included. Sodium 140 136 - 145 meq/L [facility] Potassium 3.4 (L) 3.5 - 5.1 meq/L [facility] Chloride 105 98 - 107 meq/L [facility] CO2 25 22 - 29 meq/L [facility] BUN 31 (H) 7 - 21 mg/dL [facility] Creatinine 2.35 (H) 0.57 - 1.25 mg/dL [facility] Glucose 108 (H) 70 - 105 mg/dL [facility] Calcium 8.7 8.4 - 10.2 mg/dL [facility] EGFR 21Comment: ESTIMATED GFR IS mL/min/1.73 sq m [facility] NOT ACCURATE CRE[facility]ININE [facility] CLEARANCE IN PREDICTING GLOMERULAR FILTRATION RATE. ESTIMATED GFR IS NOT APPLICABLE FOR DIALYSIS PATIENTS. Specimen Blood Narrative Performed At [place] ID - PIAYA L [facility] Specimen moderately icteric Performing Organization Address City/State/Zipcode Phone Number [facility] [address] [place] [address] [place] TRANSFUSION SERVICE REPORT - SCAN (01/24/2020 6:00 [...] AM CDT) Narrative Performed At Epifanio Giles RRT IMPLEMENTATION PROJECT MANAGER 2019 10:52 AM [facility] PFT CHARTING REPORT Infection Control/Hand Hygiene procedure s followed throughout the encounter with patient: Yes Patient Identification Method: Patient n celia verified on armband, and Medical record on armband, Is the order complete?: Yes Account ID#: [id number] Patient Name: Cici Calderon Birthdate: 1955 Age: [...] AM CDT) Narrative Performed At Epifanio Giles RRT [facility] 2019 10:52 AM [facility] PFT CHARTING REPORT Infection Control/Hand Hygiene procedure s followed throughout the encounter with patient: Yes Patient Identification Method: Patient n celia verified on armband, and Medical record on armband, Is the order complete?: Yes Account ID#: [id number] Patient Name: Cici Calderon Birthdate: 1955 Age: [...] CDT) Narrative Performed At Epifanio Giles RRT, IMPLEMENTATION PROJECT MANAGER 2019 10:52 AM [facility] PFT CHARTING REPORT Infection Control/Hand Hygiene procedure s followed throughout the encounter with patient: Yes Patient Identification Method: Patient n celia verified on armband, and Medical record on armband, Is the order complete?: Yes Account ID#: [id number] Patient Name: Cici Calderon Birthdate: 1955 Age: [...] CDT) Narrative Performed At Janina Meehan RRT, [facility] 20192:39 PM [facility] PFT CHARTING REPORT Infection Control/Hand Hygiene procedure s followed throughout the encounter with patient: Yes Patient Identification Method: Patient n celia verified on armband, and Medical record on armband, Is the order complete?: Account ID#: [id number] Patient Name: Cici Calderon Birthdate: 1955 Age: [...] ABO A Pos [place] UNIT NUMBER [id number] [place] Status TX_TIMEINCHART [place] Blood Bank Product RED BLOOD CELLS [place] PRODUCT CODE [id number] [place] Specimen Other Performing Organization Address City/State/Zipcode Phone Number [place] B-type Natriuretic Factor (BNP) (01/23/2020 4:32 AM CDT)Only the most recent of 2 resultswithin the time period is included. BNP 2,179 (H) 0 - 100 pg/mL [facility] CENTER Specimen Blood Narrative Performed At [place] ID - MITCH L [facility] Performing Organization Address City/State/Zipcode Phone Number [facility] [address] [place] [address] CENTER Prepare Leuko-Red PLT (01/22/2020 11:54 PM CDT)Only the most recent of2 results within the time period is included. Unit ABO A Pos SAFETRACE [place] UNIT NUMBER [id number] [place] Status WORK IN PROGRESS SAFETRACE [place] Blood Bank Product PLATELETS SAF[place] PRODUCT CODE [id number] SAFETRACE TX Unit ABO O Pos SAFETRACE TX UNIT NUMBER [id number] [place] Status TX_TIMEINCHART [place] Blood Bank Product PLATELETS S[place] PRODUCT CODE [id number] [place] Specimen Blood Performing Organization Address [facility] Phone Number [place] Transfuse Leuko-Red RBC (01/22/2020 2:30 PM CDT)Only the most recent of4 resultswithin the time period is included.Cortisol (01/22/2020 8:23 AM CDT)Only the most recent of2 resultswithin the time period is included. Cortisol, Total 1.6 (L) 3.7 - 19.4 ug/dL [facility] Specimen Blood Narrative Performed At [place] ID - PIAYA L [facility] Performing Organization Address [facility] [place] Phone Number [address] [address] CENTER ABORH, manual (01/22/2020 4:34 AM CDT) ABO Grouping A [facility] Rh Factor POS [facility] Specimen Blood Performing Organization Address [facility] [place] Phone Number [address] [address] Direct AHG (RAMIREZ)/Direct Jewel (01/22/2020 4:34 AM CDT) Direct AHG-IGG NEGATIVE [facility] Direct AHG-C3B, C3D NEGATVIE [facility] Specimen Blood Performing Organization Address [facility] [place] Phone Number [address] [address] Body fluid culture + gram stain (01/21/2020 4:54 PM CDT) Result No growth [facility] Gram Stain Result <1+ White blood cells seen [facility] Gram Stain Result No organisms seen [facility] Specimen Body Fluid Performing Organization Address [facility] [place] Phone Number [facility] [address] [place] [address] [place] Body fluid cell count with differential (01/21/2020 4:54 PM CDT) Appearance Hazy (A) Clear [facility] Color Cele (A) Colorless, Straw [facility] RBCs 4,000 (H) <=1 /cu mm [facility] Adjusted WBC Count 86 (H) <=5 /cu mm [facility] Lining Cells 1 <=1 /cu mm [facility] % Segs 7 % [facility] % Lymphs 83 % [facility] % Monos 10 % [facility] % Eos 0 % [facility] % Baso 0 % [facility] Container Body Fluid Sterile Vial [facility] Specimen Body Fluid Performing Organization Address City/[facility] Phone Number [facility] [address] [place] [address] [place] US paracentesis (01/21/2020 4:40 PM CDT) Specimen Narrative Performed At FINAL REPORT Codefied Ultrasound guided paracentesis Clinical History:Ascites. Sedation: None. Print Line Feeder: Christine Ward PA-C Supervising Physician: Natan Chisholm MD Return Agent Airport:None. Estimated Blood Loss: < 1 mL. Specimen: [...] anesthesia was achieved with lidocaine, a 5 Tuvaluan one-step catheter was advanced into the peritoneal cavity under ultrasound guidance. After completion of drainage, the cathet er was removed. There was no evidence of complication. Impression: Successful ultrasound guided paracentesi s. Signed: Natan Chisholm MD Report Verified Date/Time:01/24/2020 09:43:05 Reading Location: [facility] [id number] [facility] Reading Room Procedure Note Interface, External Ris In - 01/24/2020 9:45 AM CDT FINAL REPORT Ultrasound guided paracentesis Clinical History: Ascites. Sedation: None. Print Line Feeder: Christine Ward PA-C Supervising Physician: Natan Chisholm MD Return Agent Airport: None. Estimated Blood Loss: < 1 mL. [...] anesthesia was achieved with lidocaine, a 5 Tuvaluan one-step catheter was advanced into the peritoneal cavity under ultrasound guidance. After completion of drainage, the cathet er was removed. There was no evidence of complication. Impression: Successful ultrasound guided paracentesi s. Signed: Natan Chisholm MD Report Verified Date/Time: 01/24/2020 0 9:43:05 Reading Location: [facility] B1 [id number] Ultrasoun d Reading Room Performing Organization Address City/State/Zipcode Phone Number GE RIS Peripheral Blood Smear - Hold only (01/21/2020 9:31 AM CDT) Peripheral Smear Save saved [facility] Specimen Blood Performing Organization Address City/[facility]/Zipcode Phone Number [facility] [address] [place], [place] [phone] CENTER Reticulocyte count (01/21/2020 9:31 AM CDT)Only the most recent of2 results within the time period is included. % Retic 5.3 (H) 0.5 - 1.7 % [facility] Specimen Blood Narrative Performed At [place] ID - [id number] [facility] Performing Organization Address City/[facility] Phone Number [facility] [address] [place] [phone] CENTER XR chest 1 view portable / bedside (01/21/2020 9:10 AM CDT)Only the most recent of2 resultswithin the time period is included. Specimen Narrative Performed At FINAL REPORT [facility] INDICATION: Edema COMPARISON: January 20, 2020 TECHNIQUE: [...] MD Report Verified Date/Time:01/21/2020 10:03:32 Reading Location: [facility] Reading Room Procedure Note Interface, External [...] Verified Date/Time: 01/21/2020 1 0:03:32 Reading Location: [facility] [address] Radiolog y Reading Room Performing Organization Address City/State/Zipcode Phone Number GE RIS Metanephrines, 24 hour urine (01/20/2020 10:51 PM CDT) TOTAL VOLUME 1000 mL [facility] Metanephrine 205 90 - 315 [facility] Comment: mcg/24 h INCORPORATED This test was developed and its analytical perfo rmance characteristics have been determined by [employer] [place]. It has not been cleared or approved by FDA. This assay has been validated pursuant to the CLIA regulations and is used for clinical purposes. Normetanephrine [phone] [facility] Comment: mcg/24 h INCORPORATED This test was developed and its analytical perfo rmance characteristics have been determined by [employer] [place]. It has not been cleared or approved [...] perfo rmance characteristics have been determined by [employer] [place]. It has not been cleared or approved by FDA. This assay has been validated pursuant to the CLIA regulations and is used for clinical purposes. Specimen Urine Narrative Performed At Performing Lab [facility] EZ [facility] [address] [address] [place] [address] Mark Encarnacion MD, PhD, AMINA Performing Organization Address City/State/Zipcode Phone Number [facility], [place] [address] INCORPORATED [address] [facility] Catecholamines, Fractionated, 24hr urine (01/20/2020 10:51 PM CDT) TOTAL VOLUME 1000 mL [facility] Epinephrine,24 Hr Ur <2 (L) 2 - 24 mcg/24 h [facility] Comment: INCORPORATED Result below clinical reportable range for this analyte, which is 2 mcg/L. Reported result was calculated using 2 mcg/L. This test was developed and its analytical perfo rmance characteristics have been determined by [facility]. It has not been cleared or approved by FDA. This assay has been validated pursuant to the CLIA regulations and is used for clinical purposes. Norepinephrine 9 (L) 15 - 100 mcg/24 [facility] Comment: h INCORPORATED This test was developed and its analytical perfo rmance characteristics have been determined by [facility]. It has not been cleared or approved by FDA. This assay has been validated pursuant to the CLIA regulations and is used for clinical purposes. Calculated Total E+Ne 9 (L) 26 - 121 mcg/24 [facility] Comment: h INCORPORATED This test was developed and its analytical perfo rmance characteristics have been determined by [facility]. It has not been cleared [...] perfo rmance characteristics have been determined by [facility]. It has not been cleared or approved by FDA. This assay has been validated pursuant to the CLIA regulations and is used for clinical purposes. Creatinine,24 Hr Urin 0.88 0.50 - 2.15 [facility] g/24 h INCORPORATED Specimen Urine Narrative Performed At Performing Lab [facility] EZ [facility] [address] [address] [place] [address] I Shashank ADRIAN, PhD, AMINA Performing Organization Address City/State/Zipcode Phone Number [facility] [place] [address] [address] Type and screen, automated (01/20/2020 8:39 PM CDT)Only the most recent of2 resultswithin the time period is included. ABO/RH AUTOMATED (BEAKER) A POSITIVE [facility] Ab Scrn NEGATIVE [facility] Specimen Blood Performing Organization Address City/[facility]/Zipcode Phone Number [facility] [address] [place] [address] MR abdomen without IV contrast (01/20/2020 5:54 PM CDT) Specimen Narrative Performed At FINAL REPORT [facility] TECHNIQUE: MRI of the abdomen WITHOUT in [...] MD Report Verified Date/Time:01/21/2020 07:51:30 Reading Location: [facility] [employer] Reading Room - [place] [id number] Procedure Note Interface, External Ris In - [...] Verified Date/Time: 01/21/2020 0 7:51:30 Reading Location: [facility] userfoxin g Reading Room - [place] [address]9 Performing Organization Address City/State/Zipcode Phone Number RIS Urinalysis w/Microscopic + Reflex to Culture (01/19/2020 11:19 PM CDT) Color, UA Yellow [facility] Clarity, UA Hazy [facility] Specific [place], UA 1.017 1.001 - 1.035 [facility] pH, UA 5.5 5.0 - 8.[address] [facility] Protein, UA 20 mg/dL (A) Negative [facility] Glucose, UA Negative Negative [facility] Ketones, UA Negative Negative [facility] Bilirubin, UA Negative Negative [facility] Blood, UA Small (A) Negative [facility] Nitrite, UA Negative Negative [facility] Leukocytes, UA Trace (A) Negative [facility] Urobilinogen, UA 0.2 0.2 - 1.0 mg/dL [facility] RBC, UA 1 /HPF [facility] WBC, UA 3 /HPF [facility] Bacteria, UA Rare [facility] Squam Epithel, UA 3 /HPF [facility] Hyaline Casts, UA 3 /LPF [facility] Specimen Source [facility] Specimen Urine Performing Organization Address City/[facility]/Zipcode Phone Number [address] [address] CENTER Sodium, random urine (01/19/2020 11:19 PM CDT)Only the most recent of3 results within the time period is included. Sodium Urine <20 meq/L [facility] Specimen Urine Narrative Performed At Reference Range: No Normals [facility] [place] ID - PIAYA L Performing Organization Address [facility] [place]/[facility] Phone Number [address] [address] [place] Urinalysis w/Microscopic (01/19/2020 11:19 PM CDT)Only the most recent of2 resultswithin the time period is included. Color, UA Yellow [facility] Clarity, UA Hazy [facility] Specific [place], UA 1.017 1.001 - 1.035 [facility] pH, UA 5.5 5.0 - 8.0 [facility] Protein, UA 20 mg/dL (A) Negative [facility] Glucose, UA Negative Negative [facility] Ketones, UA Negative Negative [facility] Bilirubin, UA Negative Negative [facility] Blood, UA Small (A) Negative [facility] Nitrite, UA Negative Negative [facility] Leukocytes, UA Trace (A) Negative [facility] Urobilinogen, UA 0.2 0.2 - 1.0 mg/dL [facility] RBC, UA 1 /HPF [facility] WBC, UA 3 /HPF [facility] Bacteria, UA Rare [facility] Squam Epithel, UA 3 /HPF [facility] Hyaline Casts, UA 3 /LPF [facility] Specimen Source [facility] Specimen Urine Narrative Performed At [place] ID - [auto] [facility] [place] ID - tech Performing Organization Address [facility] [place]/[facility] Phone Number [address] [address] CENTER Blood Culture - Routine (Right Venipuncture) (01/19/2020 9:45 PM CDT)Only the most recent of4 resultswithin the time period is included. Result No growth in 5 days [facility] Specimen Blood Performing Organization Address City/State/Zipcode Phone Number [facility] [address] [place] [address] CENTER [id number] PHENOTYP (01/19/2020 9:43 PM CDT) Specimen Blood Narrative Performed At This result has an attachment that is no t available. Performing Organization Address City/State/Zipcode Phone Number [facility] [address] [place], [place] Blood gas, arterial (01/19/2020 3:44 PM CDT) pH, Arterial 7.42 7.35 - 7.45 [facility] pCO2, Arterial 36 35 - 45 mmHg [facility] pO2, Arterial 78 (L) 80 - 90 mmHg [facility] O2 Sat, Arterial 96.2 96.0 - 97.0 % [facility] HCO3, Arterial 23 21 - 29 mmol/L [facility] Base Excess, Arterial -1.9 -2.0 - 3.0 mmol/L [facility] Patient Temperature 36.1 C [facility] FIO2 28.0 % [facility] Specimen Blood, Arterial Performing Organization Address City/State/Zipcode Phone Number [facility] [address] [place] [address] [place] Cryptococcal antigen (01/19/2020 3:04 PM CDT) Cryptococcal Antigen, Serum Negative Negative, Interferen ce [facility] Specimen Blood Performing Organization Address [facility] Phone Number [address] [address] [place] Rubeola antibody IgG (01/19/2020 3:04 PM CDT) [...] patient. For additional information, please refer to http://education.Clean Plates/faq/OLR213 (This link is being provided for informational/ educational purposes only.) Specimen Blood Narrative Performed At Performing Lab [facility] *QDID Aeromot Infectious Di [facility] [address] [place] [address] Sudhakar Hargrove MD Performing Organization Address City/[facility]/Zipcode Phone Number [facility] [place] [address] INCORPORATED [address] [facility] Rubella antibody, IgG (01/19/2020 3:04 PM CDT) Rubella IgG Quant 127.0 (H) <8.0 IU/mL [facility] Specimen Blood Narrative Performed At Rubella IgG Result Interpretation: [facility] </= 7.0 IU/mL Negative - Presumed non-immune 8.0 - 9.9 IU/mL Equivocal >= 10.0 IU/mL Positive - Presumed immune Performing Organization Address [facility] [place]/[facility] Phone Number [address] [address] [place] Varicella zoster antibody, IgG (01/19/2020 3:04 PM CDT) Varicella IgG 3.6 [facility] Specimen Blood Narrative Performed At VARICELLA ZOSTER RESULT INTERPRETATIONS: [facility] <=0.8 AlNonreactive:Presumed non-immune to VZV 0.9-1.0 AlEquiv ocal >=1.1 AlReactive:Presumed immune to VZV Performing Organization Address [facility] [place]/[facility] Phone Number [address] [address] [place] Mumps antibody, IgG (01/19/2020 3:04 PM CDT) [...] At Performing Lab [facility] *QDID Melon #[facility] Infectious Di [employer] [address] [place] [address] Sudhakar Hargrove MD Performing Organization Address City/[facility] Phone Number [facility] [place] [address] INCORPORATED [address] [facility] US breast bilateral (01/19/2020 9:10 AM CDT) Specimen Narrative Performed At FINAL REPORT [facility] COMPLETE ULTRASOUND OF BOTH BREASTS AND AXILLA: 01/19/2020 Color flow and real-time ultrasound of b oth breasts four quadrants, retroareolar, and axilla regions were pe rformed.Hein scale images of the real-time examination were review ed. No significant abnormalities were seen s onographically in either breast. IMPRESSION: BENIGN The findings have been discussed with e patient. There is no sonographic evidence of bette gnancy. Correlation with mammography is recommen ded. Signed: Jorge Brooks MD Report Verified Date/Time:01/19/2020 09:52:28 Reading Location: [facility] 10th Flr Mammo Re ading Room Procedure Note Interface, [...] BENIGN The findings have been discussed with e patient. There is no sonographic evidence of bette gnancy. Correlation with mammography is recommen ded. Signed: Jorge Brooks MD Report Verified Date/Time: 01/19/2020 0 9:52:28 Reading [facility] Re ad[facility] Room Performing Organization Address City/State/Zipcode Phone Number [facility] Aldosterone (01/19/2020 4:11 AM CDT) Aldosterone 22 ng/dL [facility] Comment: Adult Reference Ranges for Aldosterone: Upright 8:00-10:00 am< or = 28 ng/d L Upright 4:00-6:00 pm < or = 21 ng/d L Supine8:00-10:00 am3-16 ng/dL This test was developed and its analytical perfo rmance characteristics have been determined by [employer] [facility]. It has not been cleared or approved by FDA. This assay has been validated pursuant to the CLIA regulations and is used for clinical purposes. Specimen Blood Narrative Performed At Performing Lab lettrs [facility] EZ [place] [employer] Inst[facility] [address] [address] [place] [address] Mark Encarnacion MD, PhD, AMINA Performing Organization Address [facility] Phone Number [facility] [place] [address] INCORPORATED [address] [facility] Renin, plasma (01/19/2020 4:11 AM CDT) PRA,LC/MS/MS 1.51 0.25 - 5.82 lettrs Comment: ng/mL/h INCORPORATED This test was developed and its analytical perfo rmance characteristics have been determined by [facility] [facility]. It has not been cleared or approved by FDA. This assay has been validated pursuant to the CLIA regulations and is used for clinical purposes. Specimen Blood Narrative Performed At Performing Lab [facility] EZ vWisei tute [address] [place] [address] Mark Encarnacion MD, PhD, AMINA Performing Organization Address [facility] Phone Number [place] [address] INCOR[place]ATED [address] [facility] CT abdomen without IV contrast (01/19/2020 12:40 AM CDT) Specimen Narrative Performed At FINAL REPORT [facility] TECHNIQUE: CT of the abdomen WITHOUT int [...] MD Report Verified Date/Time:01/19/2020 08:09:04 Reading Location: [facility] Reading Room - [place] [address] Procedure Note Interface, External Ris In - [...] Verified Date/Time: 01/19/2020 0 8:09:04 Reading Location: [facility] Reading Room - [place] [address] Performing Organization Address City/State/Zipcode Phone Number [facility] US renal complete (01/19/2020 12:20 AM CDT) Specimen Narrative Performed At FINAL REPORT [facility] Ultrasound of the Kidneys Clinical History:Re-examine L [...] Date/Time: 01/19/2020 0 1:26:59 Performing Organization Address [facility] Phone Number GE RIS Protein, random urine (01/18/2020 8:49 PM CDT) Protein, Urine 45 (H) 0 - 14 mg/dL [facility] Specimen Urine - Urine, Sterile Collection Narrative Performed At [place] - EDWIN B [facility] Performing Organization Address [facility]/[employer] Phone Number [address] [address] CENTER Creatinine, random urine (01/18/2020 8:49 PM CDT)Only the most recent of2 resultswithin the time period is included. Creatinine, Ur 181.3 mg/dL [facility] Specimen Urine - Urine, Sterile Collection Narrative Performed At Reference Range: No Normals [facility] [place] ID - EDWIN B Performing Organization Address [facility]/[employer] Phone Number [address] [address] CENTER Eosinophil smear (01/18/2020 8:49 PM CDT) Eosinophil Smear Rare EOS =less than 5% No EOS seen [facility] WBCs seen are EOS (A) MEDICAL CE NTER Specimen Urine - Urine, Sterile Collection Performing Organization Address [facility] Phone Number [address] [address] [facility] Myocardial Perfusion Pet/CT (Rest & Stress) (01/18/2020 9:20 AM CDT) Specimen Narrative Performed At FINAL REPORT [facility] PROCEDURE: MYOCARDIAL PERFUSION PET IMAG ING (Rest/Stress) CPT CODE: 12419 INDICATION: Evaluation for liver transpl ant CARDIOVASCULAR [...] MD Report Verified Date/Time:01/18/2020 12:45:40 Reading Location: [address] Reading Room Procedure Note Interface, External Ris In - 01/18/2020 12:47 PM CDT FINAL REPORT PROCEDURE: MYOCARDIAL PERFUSION PET IMAG ING (Rest/Stress) CPT CODE: 24215 INDICATION: Evaluation for liver transpl ant CARDIOVASCULAR [...] Verified Date/Time: 01/18/2020 1 2:45:40 Reading Location: [address] Reading Room Performing Organization Address City/State/Zipcode Phone Number [facility] Treadmill tolerance(Non-Nuclear Treadmill) (01/18/2020 8:57 AM CDT) Specimen Narrative Performed At Protocol Name Regadenoson [employer] MUSE Time In Exercise Phase 00:01:00 Max. [...] - 01/19/2020 7:04 AM CDT Protocol Name Carrie Time In Exercise Phase 00:01:00 Max. Systolic [...] on 01/19/2020 7:03:55 AM Performing Organization Address City/[facility] Phone Number [employer] MUSE ECG 12 lead (01/18/2020 8:46 AM CDT)Only the most recent of2 resultswithin the time period is included. Specimen Narrative Performed At Ventricular Rate 62 BPM GE MUSE Atrial Rate 62 BPM P-R Interval 138 ms QRS Duration 86 ms Q-T Interval 452 ms QTC Calculation(Bazett) 458 ms P [place] 59 degrees R [place] 32 degrees T [place] 56 degrees Normal sinus rhythm Low voltage [...] 452 ms QTC Calculation(Bazett) 458 ms P [place] 59 degrees R [place] 32 degrees T [place] 56 degrees Normal sinus rhythm Low voltage QRS Nonspecific ST abnormality 17 JAN 2020 11:05 Nonspecific T wave abnormality Nonspecif ic T wave abnormality, improved in QT has shortened Confirmed by MD DOUGHERTY YOCHAI ([id number]) on 01/18/2020 2:19:38 PM Performing Organization Address City/[facility] Phone Number [employer] MUSE T Spot TB (01/18/2020 6:10 AM CDT) T-Spot TB Negative [employer] [facility] LABORATORIES Neg Ctrl Spot Count 0 [...] Address City/State/Zipcode Phone Number [facility] [address] [place] [address] LAB[address]ATOR[address] REPORT OF PROCEDURE - ENDOSCOPY URL (01/17/2020 9:11 AM CDT) Narrative Performed At This result has an attachment that is no t available. REPORT OF PROCEDURE - ENDOSCOPY URL (01/17/2020 8:39 AM CDT) Narrative Performed At This result has an attachment that is no t available. Tissue Exam (01/17/2020 8:15 AM CDT) Case Report Surgical Pathology Report Case: [id number] [facility] Authorizing Provider:Sylvie Larry MDCollected: 01/17/2020 08:15 AM [facility] CENTER Ordering Location: [address] Received:01/17/2020 01:50 PM Service Pathologist: Humaira Mendez MD Specimen:Duodenum, biopsy ADDENDUM THIS ADUODENUMIS ISSUED TO R EPORT THE FINDINGS IN THE DEEPER LEVELS OF THE BIOPSY AND GIVE THE FINAL DIAGNOSIS: [facility] DUODENUM, ENDOSCOPIC BIOPSY: - ECTATIC VESSELS IN THE LAMINA PROPRIA, SUGGE STIVE OF PORTAL DUODENOPATHY - NO FEATURES OF CELIAC DISEASE SEEN - NO GRANULOMAS, DYSPLASIA OR MALIGNANCY SEEN DIAGNOSIS DUODENUM, ENDOSCOPIC BIOPSY: [facility] - SUPERFICIAL FRAGMENTS OF SMALL BOWEL MUCOSA WITH GASTRIC FOVEOLAR METAPLASIA [facility] CENTER Signing Pathologist Direct Phone Line: CPT Code(s) 318[address] [facility] [place] CLINICAL HISTORY Procedure: upper endoscopy, biopsy and colonosc opy [facility] Pre and postop diagnosis: anemia MEDICAL CENTER SPECIMEN SOURCE A. Duodenum; biopsy [facility] GROSS DESCRIPTION A. The specimen is received [facility] in formalin labeled with MEDICAL CENTER the patient's name, accession number and "[email or web address]" and consists of one garduno-pink mucosal-covered pieces of tissue measuring 0.3 x 0.2 x 0.1 cm. The specimen is submitted entirely following filtration in a cassette A1. HS/pl MICROSCOPIC DESCRIPTION PERFORMED [facility] Specimen Tissue Performing Organization Address [facility] Phone Number [address] [address] CENTER Lactate dehydrogenase (LDH) (01/16/2020 12:24 PM CDT) LDH 250 (H) 125 - 220 U/L [facility] Specimen Blood Narrative Performed At [place] ID - TUAN C [facility] ICAL [place] Performing Organization Address [facility] Phone Number [address] [address] [place] Vitamin B12 and Folate (01/16/2020 11:25 AM CDT) Vitamin B12 1,107 (H) 213 - 816 pg/mL [facility] Folate 3.40 (L) >=7.00 ng/mL [facility] Specimen Blood Narrative Performed At [place] ID - NTP [facility] Performing Organization Address [facility] Phone Number [address] [address] CENTER HIV-1 Antigen with HIV-1/2 Antibody (01/16/2020 11:25 AM CDT) HIV-1 Antigen with HIV 1&2 Nonreactive Nonreactive [facility] Specimen Blood Narrative Performed At [place] ID - T[place]AN C [facility] Performing Organization Address [facility]/Zipcode Phone Number [address] [address] CENTER Haptoglobin (01/16/2020 11:25 AM CDT) Haptoglobin <8 (L) 14 - 258 mg/dL [facility] Specimen Blood Narrative Performed At [place] ID - TUAN Mera [facility] CENTER Performing Organization Address City/State/Zipcode Phone Number [facility] [address] [place] [address] CENTER US abdominal with doppler (01/16/2020 6:30 AM CDT) Specimen Narrative Performed At FINAL REPORT [facility] ULTRASOUND ABDOMEN COMPLETE, ULTRASOUND DUPLEX DOPPLER HISTORY: [...] flow in the main portal vein. Signed: Albaor Alvarado MD Report Verified Date/Time:01/16/2020 07:32:01 Reading Location: [address] Reading Room Procedure Note Interface, External [...] Verified Date/Time: 01/16/2020 0 7:32:01 Reading Location: [address] Reading Room Performing Organization Address City/State/Zipcode Phone Number [facility] Drug screen, urine, transplant (01/15/2020 9:52 PM CDT) Specimen Urine Narrative Performed At This result has an attachment that is no t available. Performing Organization Address City/State/Zipcode Phone Number [facility] [address] [place] [address] Blood typing, automated - - at seperate draw time from initial type and screen (01/15/2020 6:16 PMCDT) ABO/RH AUTOMATED (BEAKER) A POSITIVE [facility] Specimen Blood Performing Organization Address City/State/Zipcode Phone Number [facility] [address] [place] [address] CT chest without IV contrast (01/15/2020 5:54 PM CDT) Specimen Narrative Performed At FINAL REPORT Intron[facility] RIS CT of the chest, without contrast Clinical [...] MD Report Verified Date/Time:01/15/2020 17:57:54 Reading Location: [address] Reading Room Procedure Note Interface, External [...] Verified Date/Time: 01/15/2020 1 7:57:54 Reading Location: [address] Reading Room Performing Organization Address City/State/Zipcode Phone Number [facility] XR chest 2 views (01/15/2020 4:57 PM CDT) Specimen Narrative Performed At FINAL REPORT [facility] History: Cirrhosis, liver transplant shama luation Comparison: [...] MD Report Verified Date/Time:01/15/2020 17:16:49 Reading Location: [facility] [id number] [facility] Reading Room Procedure Note Interface, [...] Verified Date/Time: 01/15/2020 1 7:16:49 Reading Location: [address] Reading Room Performing Organization Address City/State/Zipcode Phone Number GE RIS XR mandible min [...] MD Report Verified Date/Time:01/15/2020 17:22:12 Reading Location: [facility] C0[facility] Reading Room Procedure Note Interface, [...] Verified Date/Time: 01/15/2020 1 7:22:12 Reading Location: [facility] C0T [facility] Reading Room Performing Organization Address City/[facility]/Zipcode Phone Number GE RIS Mitochondria M2 Antibody (IgG) (01/15/2020 4:17 PM CDT) Mitochondria M2 Ab <20.0 See Note: U [facility] Comment: Reference Range: NEGATIVE:< OR = 20.0 EQUIVOCAL: 20.1-24.9 POSITIVE:> OR = 25.0 Specimen Blood Narrative Performed At Performing Lab [facility] [place] [address] [place] [address] I Shashank ADRIAN, PhD, AMINA Performing Organization Address [facility] Phone Number [facility] [place] [address] INCORPORATED [address] [facility] Iron, TIBC, % sat. (without ferritin) (01/15/2020 4:17 PM CDT) Iron 144.0 40.0 - 160.0 ug/dL [facility] TIBC 129 (L) 250 - 450 ug/dL [facility] Iron % Saturation 112 (H) 20 - 55 % [facility] Specimen Blood Narrative Performed At [place] ID - DB [facility] Performing Organization Address [facility] Phone Number [address] [address] CENTER Hepatitis C antibody (01/15/2020 4:17 PM CDT) Hepatitis C Ab Nonreactive Nonreactive [facility] Specimen Blood Narrative Performed At [place] ID - DB [facility] Performing Organization Address [facility]/Zipcode Phone Number [address] [address] CENTER Cytomegalovirus antibody, IgM (01/15/2020 4:17 PM CDT) CMV IGM Negative Negative, Equivocal [facility] Specimen Blood Narrative Performed At CMV IgM Result Interpretation: [facility] </= 0.8 Al Negative 0.9-1.0 Al Equivocal >/= 1.1 Al Positive Performing Organization Address City/[facility] Phone Number [facility] [address] [place] [address] CENTER Actin (Smooth Muscle) Antibody, IgG [...] Lab [facility] E[facility] [address] [address] [place] [address] Mark Encarnacion MD, PhD, AMINA Performing Organization Address [facility] Phone Number [facility] [place] [address] INCORPORATED [address] [facility] [id number] (01/15/2020 4:17 PM CDT) A-1 Antitrypsin 121.20 90.00 - 200.00 mg/dL [facility] Specimen Blood Narrative Performed At [place] ID - DB [facility] Performing Organization Address City/[facility]/Zipcode Phone Number [facility] [address] [place] [address] CENTER Hepatitis A antibody, IgM (01/15/2020 4:17 PM CDT) Hep A IgM Nonreactive Nonreactive [facility] Specimen Blood Narrative Performed At [place] ID - DB [facility] Performing Organization Address City/[facility]/Zipcode Phone Number [facility] [address] [place] [address] CENTER Carbohydrate antigen 19-9 (CA 19-9) [...] At Performing Lab [facility] EZ [place] [employer] [facility] [address] [address] [place] [address] Mark Encarnacion MD, PhD, AMINA Performing Organization Address [facility] Number [facility] [place] [address] INCORPORATED [address] [facility] Ceruloplasmin (01/15/2020 4:17 PM CDT) Ceruloplasmin 21 18 - 53 mg/dL [facility] Specimen Blood Narrative Performed At Performing Lab [facility] *BEATRIZ [facility], [address] [place] [phone] Jorje Jauregui MD, PhD Performing Organization Address [facility] Number lettrs [place] [address] INCORPORATED [address] [facility] Zinc (01/15/2020 4:17 PM CDT) Zinc 39 (L) 60 - 130 mcg/dL [facility] Comment: INC[facility]PORATED This test was developed and its analytical perfo rmance characteristics have been determined by [employer]. It has not been cleared or approved by the FDA. This assay has been validated pursuant to t he CLIA regulations and is used for clinical purposes. Specimen Blood Narrative Performed At Performing Lab [facility] *BEATRIZ [employer] [facility], [address] [place] [phone] Jorje Jauregui MD, PhD Performing Organization Address [facility] [place] [address] [facility] [address] [facility] Hepatitis B core antibody, IgM (01/15/2020 4:17 PM CDT) Hep B C IgM Nonreactive Nonreactive [facility] Specimen Blood Narrative Performed At [place] ID - DB [facility] Performing Organization Address City/State/Zipcode Phone Number [address] [address] CENTER EBV-VCA antibody, IgM (01/15/2020 4:17 PM CDT) GABRIEL CHING VIRAL CAPSID Negative Negative, Equivocal [facility] IGM [facility] Specimen Blood Narrative Performed At Gabriel Ching Viral Capsid Antigen IgM Result [facility] Interpretation: </= 0.8 Al Negative 0.9-1.0 Al Equivocal >/= 1.1 Al Positive Performing Organization Address City/[facility] Phone Number [address] [address] [place] EBV-VCA antibody, IgG (01/15/2020 4:17 PM CDT) GABRIEL CHING VIRAL CAPSID Positive (A) Negative, Equivocal [facility] IGG [facility] Specimen Blood Narrative Performed At Gabriel Ching Viral Capsid Antigen IgG Result [facility] Interpretation: </= 0.8 Al Negative 0.9-1.0 Al Equivocal >/= 1.1 Al Positive Performing Organization Address City/[facility]/Zipcode Phone Number [address] [address] CENTER Hepatitis B core antibody, total (01/15/2020 4:17 PM CDT) Hep B Core Total Ab Nonreactive Nonreactive [facility] Specimen Blood Narrative Performed At [place] ID - [place] F [facility] Performing Organization Address City/State/Zipcode Phone Number [address] [address] CENTER Vitamin D, 25-Hydroxy (01/15/2020 4:17 PM CDT) Vitamin D 25-Hydroxy 6.2 (L) 6.6 - 49.9 ng/mL [facility] Specimen Blood Narrative Performed At Effective 05/07/2017: Reference Range Ch von [facility] New: 6.6-49.9 ng/mL Previous: 13.0-47.8 ng/mL Recommended Vitamin D Target Range: 30.0-40.0 ng/mL [place] ID - DB Performing Organization Address City/[facility]/Zipcode Phone Number [address] [address] CENTER RPR (01/15/2020 4:17 PM CDT) RPR Nonreactive Nonreactive [facility] Specimen Blood Performing Organization Address [facility] Phone Number [address] [address] [place] Hepatitis B surface antibody (01/15/2020 4:17 PM CDT) Hep B S Ab 25.0 (H) <8.0 mIU/mL [facility] Specimen Blood Narrative Performed At [place] ID - DB [facility] Performing Organization Address City/[facility] Phone Number [address] [address] [place] Hepatitis B surface antigen (01/15/2020 4:17 PM CDT) HBsAg Screen Nonreactive Nonreactive [facility] Specimen Blood Narrative Performed At Specimen is considered negative for HBsAg. [facility] Performing Organization Address [facility] Phone Number [address] [address] [place] Cytomegalovirus antibody, IgG (01/15/2020 4:17 PM CDT) CYTOMEGALOVIRUS, IGG Positive (A) Negative, Equivocal [facility] Specimen Blood Narrative Performed At CMV IgG Result Interpretation: [facility] </= 0.8 Al Negative 0.9-1.0 Al Equivocal >/=1.1 AlPositive Performing Organization Address [facility] Phone Number [address] [address] [place] aPTT (01/15/2020 4:17 PM CDT) PTT 36.8 (H) 22.5 - 36.0 seconds [facility] Specimen Blood Performing Organization Address [facility] Phone Number [address] [address] [place] Fibrinogen (01/15/2020 4:17 PM CDT) Fibrinogen 114 (L) 225 - 434 mg/dl [facility] Specimen Blood Performing Organization Address [facility] Phone Number [address] [address] [place] Anti-Nuclear Antibody (REILLY) (01/15/2020 4:17 PM CDT) REILLY Negative Negative [facility] Specimen Blood Narrative Performed At Test performed by IFA method. [facility] Test performed by IFA method. Performing Organization Address [facility] Phone Number [address] [address] CENTER T3 (01/15/2020 4:17 PM CDT) T3, Total 51 48 - 159 ng/dL [facility] Specimen Blood Narrative Performed At This result has an attachment that is no t available. Performing Organization Address [facility] Phone Number [facility] [address] [place] Transferrin (01/15/2020 4:17 PM CDT) Transferrin 102 (L) 174 - 382 mg/dL [facility] Specimen Blood Narrative Performed At [place] ID - DB [facility] Specimen moderately icteric Performing Organization Address City/[facility]/Zipcode Phone Number [address] [address] CENTER TSH (01/15/2020 4:17 PM CDT) TSH 5.549 (H) 0.350 - 4.940 uIU/mL [facility] Specimen Blood Narrative Performed At [place] ID - DB [facility] ICAL CENTER Performing Organization Address City/State/Zipcode Phone Number [address] [address] CENTER T4 (01/15/2020 4:17 PM CDT) T4, Total 4.3 (L) 4.9 - 11.7 ug/dL [facility] Specimen Blood Narrative Performed At [place] ID - NTP [facility] ICAL CENTER Performing Organization Address City/[facility]/Zipcode Phone Number [address] [address] CENTER Hemoglobin A1c (01/15/2020 4:17 PM CDT) Hemoglobin A1C <3.8 (L) 4.3 - 6.1 % [facility] Specimen Blood Performing Organization Address City/State/Zipcode Phone Number [address] [address] CENTER Ferritin (01/15/2020 4:17 PM CDT) Ferritin 489.86 (H) 5.00 - 275.00 ng/mL [facility] Specimen Blood Narrative Performed At [place] ID - NTP [facility] [place]AL [place] Performing Organization Address City/State/Zipcode Phone Number [address] [address] CENTER Carcinoembryonic Antigen (CEA) (01/15/2020 4:17 PM CDT) CEA, SERUM 7.9 (H) 0.0 - 5.0 ng/mL [facility] Specimen Blood Narrative Performed At [place] - DB [facility] Performing Organization Address [facility] [place] Phone Number [address] [address] [place] Ethanol (01/15/2020 4:17 PM CDT) Ethanol Lvl <10 <=10 mg/dL [facility] Specimen Blood Narrative Performed At [place] ID - DB [facility] Performing Organization Address City/[facility] Phone Number [address] [address] [place] 2D Echo W/Doppler(CW/PW/Color) (01/15/2020 2:45 PM CDT) Ejection Fraction [facility] ECHO HEAR [facility] Specimen Narrative Performed At Transthoracic Echocardiography Report (T TE) [facility] ECHO [facility] Demographics Patient Name CICI CALDERON Date of Study 01/15/2020 ALYSE [id number] GenderFem shalom Visit Number [id number] RaceUnkn own [id number] m Number [id number] Number Date of Birth1955 Referring Physician Ren Hernandez MD Age64 year(s) Director Of Exhibits Lisa Bautista [facility] InterpretingJoseolvin Arreguin MD Physician Procedure Type of [...] Study 01/15/2020 ALYSE Gender Female Visit Number [id number] Race Unknown [place] [id number] Number Date of 1955 Referri Physician Ren [...] l/min/m^2 Performing Organization Address City/State/Zipcode Phone Number [facility] Carotid doppler bilateral (01/15/2020 2:41 PM CDT) Ejection Fraction [facility] ECHO HEAR [facility]LAB [facility] Specimen Impressions Performed At Right Impression [facility] 1. The internal, common and [...] Performed At LAB - Carotid Duplex Study [facility] ECHO [facility] Demographics Patient Shameka Tobias of Study 01/15/2020 ALYSE 64 Visit [id number] Female of 1955 Referring Eliecer Carcamo Room Number [id number] Physician Director Of Exhibits Herbert maurice [facility] Physician Procedure Type of Study: Cerebral: Carotid, [...] Study 01/15/2020 ALYSE Age 64 Visit Number [id number] Gen margarita Female Accession Number [id number] Ramirez e of 1955 Referring Eliecer Riverao m Number [id number] Physician Director Of Exhibits Herbert Lechuga Int erpreting Chelsea Resendez, T Alvin fsos MD Procedure Type of Study: Cerebral: Carotid, [...] normal. 4. The subclavian artery is within chreyle l limits where visualized. Conclusions Summary Carotid [...] Measurements:ICAPSV/CCAPS V 0.96.ICAEDV/CCAEDV 1.52. Performing Organization Address City/State/Zipcode Phone Number [facility] Hepatitis panel, acute (01/15/2020 8:32 AM CDT) Hep A IgM Nonreactive Nonreactive [facility] Hep B C IgM Nonreactive Nonreactive [facility] Hepatitis C Ab Nonreactive Nonreactive [facility] HBsAg Screen Nonreactive Nonreactive [facility] Specimen Blood Narrative Performed At [place] [facility] - [facility] Performing Organization Address City/[facility]/Zipcode Phone Number [facility] [address] [place] [address] CENTER Ammonia (01/15/2020 8:32 AM CDT) Ammonia 19 18 - 72 mol/L [facility] Specimen Blood Narrative Performed At [place] ID - NTP [facility] Performing Organization Address City/[facility]/Zipcode Phone Number [address] [address] [place] Uric acid (01/15/2020 3:56 AM CDT) Uric Acid 15.7 (H) 2.6 - 7.2 mg/dL [facility] Specimen Blood Narrative Performed At [place] ID - NTP [facility] Specimen moderately icteric Performing Organization Address [facility] [place] Phone Number [address] [address] [place] Gamma Glutamyl Transferase (GGT) (01/15/2020 3:56 AM CDT) GGT 15 9 - 64 U/L [facility] Specimen Blood Narrative Performed At [place] ID - NTP [facility] Specimen moderately icteric Performing Organization Address [facility] [place] Phone Number [address] [address] [place] Lipid panel (01/15/2020 3:56 AM CDT) Triglycerides 86 mg/dL [facility] Cholesterol 101 mg/dL [facility] HDL 12 mg/dL [facility] LDL Calculated 72 mg/dL [facility] Specimen Blood Narrative Performed At Triglyceride Reference Range: [facility] Low Risk <150 [id number] High Risk 200-499 Very High Risk>=500 Cholesterol Reference Range: Low Risk <200 [id number] High Risk>240 HDL Cholesterol Reference Range: Low Risk >=60 High Risk <40 LDL Cholesterol Reference Range: Optimal<100 Near [id number] [id number] Kcbl366-411 Very High >=190 [place] ID - NTP Specimen moderately icteric Performing Organization Address [facility] [place]/[facility]/Zipcode Phone Number [address] [address] [place] SARS-CoV2/RT-PCR (Asymptomatic ONLY) (01/14/2020 7:28 PM CDT) SARS-COV2/RT-PCR Not Detected Not Detected, Negative [facility] SARS-COV-2 PERFORMING LAB [facility] Specimen Other Narrative Performed At Negative results do not preclude SARS-CoV-2 [facility] infection and should not be used as [...] the Act. Fact Sheet for Healthcare Providers: https://www.[employer]/Documents/Xpert%20Xpre ss%20SARS%20CoV-2/Fact%20Sheets/3023802%20SAR S-COV-2%20HEALTHCARE%20PROVIDERS%20FACT%20SHEE T.pdf Fact Sheet for Healthcare Patients: https://www.[employer]/Documents/Xpert%20Xpre ss%20SARS%20CoV-2/Fact%20Sheets/3023801%20SAR S-COV-2%20PATIENT%20FACT%20SHEET.pdf Performing Laboratory: [facility] [address] [place] [address] Performing Organization Address City/State/Zipcode Phone Number [facility] [address] [place] [address] CENTER after 04/14/2019 Insurance Payer Benefit Plan / Subscriber ID Type Phone Address Group [employer] - MEDICARE AETNA MEDICARE HMO xxxxxxxx [address] [place] [address] CDC REVIEW CDC REVIEW xxxxx[place] [address] [place] [place] [address] Advance Directives For more information, please contact:[facility] [place], [place] [phone] Code Status Date Activated Date Inactivated Comments Full Code 01/14/2020 8:09 PM 01/26/2020 8:41 PM This code status was determined by: Patient
--- OUTSIDE RECORDS SUMMARY | 2020-04-14 07:29 | XMS REPORT ---
[...] Status Dosage System Date Date Calcitriol ND 50699768152 0.5 MCG Orally Active 1 capsule Once a day Albuterol [facility] 68321011357 108 (90 Base) November 03, Active 1 puff as Sulfate HFA MCG/ACT 2019 needed Inhalation every 6 hrs Lactulose ND 66494083239 20 GM/30ML Active 15 ml Orally Once a day Cimetidine ND 58841558941 200 MG Orally Active 1 t ablet Once a day as needed Results No Known Results Summary Purpose eClinicalWorks Submission
--- OUTSIDE RECORDS SUMMARY | 2020-04-14 07:29 | XMS REPORT | Continuity of Care Document ---
:1955 Author Organization [facility] t Address [address] [place] [address] Care Team Providers Name Role Phone Nahun Leonard MD Primary Care Physician Mayank ESPINOSA, R Attending Clinician Unavailable Alfonso Attending Clinician Unavailable Nhi Montgomery MD Attending Clinician Yuriy Cartagena MD Attending Clinician Nhi MONTGOMERY Attending Clinician Unavailable Sudhakar Sahni MA Attending Clinician Unavailable Alex Riley MD Attending Clinician ALEX RILEY Attending Clinician [...] Attending Clinician Tonia Stone MD Attending Clinician Law, R Attending Clinician Unavailable Marie TAYLOR Attending Clinician Unavailable Nallely ADRIAN Attending Clinician Zeinab Gooden Attending Clinician Vinicius Bull CLIFTON Attending Clinician Doris ADRIAN Attending Clinician Aaliyah ESPINOSA, P Attending Clinician Unavailable PRABHA FORTUNE Attending Clinician Unavailable Prabha Fortune MD Attending Clinician Yaneli ESPINOSA Attending Clinician Unavailable Holli Borden MD Attending Clinician Joshua ADRIAN Attending Clinician Niraj TAYLOR Attending Clinician Unavailable Markus ESPINOSA Attending Clinician Unavailable TONIA STONE Admitting Clinician Unavailable Joshua ADRIAN Admitting Clinician Payers Payer Name Policy Type Policy Number Effective Date Expiration Date S kiarra AETNA - MEDICARE MGD [id number] [facility] CAREA[facility]NA [facility]IC[facility] [place] Medical [id number], [place] [address] [facility] REVIEWCDC xxxxxxxx [facility] REVIEWxxxxxxxxPO [facility] [id number] Center Problems Condition Condition Condition Status Onset Resolution Last Treating Co mments Source Name Details Category Date Date Treatment Clinician Date Acute Acute Disease Active [facility] liver liver 619 [facility] - failure failure 00:00: Medical 00 [place] Elevated Elevated Disease Active [facility] creatinine 00:00: Me [...] 2015-07 [facility] - [facility]: t & Plan: Medical 00 EGD in Center March 2016 was negative for varices. Obesity Obesity Disease Active 2015-[address] (BMI (BMI 09-01 Assessmen [facility] - 35.0-39.9 35.0-39.9 00:00: t & [...] Last C [facility] on on 09-01 Assesschapo Arteaga - 00:00: t & Plan: Medical 00 Recommend Center miralax Screening Screening Disease Active 2015-[address] [facility] 09[facility] [place] - malignant malignant 00:00: t & Plan: [...] suspiciou s lesions in the liver. AFP 09/01/16 is 4.0. Adrenal Adrenal Disease Active 2015-07 [...] [facility] Hospital Problem Active [...] [facility] - mide 00:00: Medical Antibiot 00 [place] ics) Tetracyc Drug Active Hives 2015-[address] [facility] lines Allergy 2 [facility] - 00:00: Medical 00 [place] Tetracyc Adverse Active hives [facility] line HCl Reaction [facility] Levaquin Adverse Active vomiting/jocy C [facility] Reaction rrhea [facility] Erythrom Adverse Active vomiting/jocy [facility] ycin Reaction rrhea [facility] Family History Family Member Diagnosis Comments Start Date Stop Date Source Natural brother Diabetes [facility] Natural brother Hypertension [facility] Natural brother Arthritis [facility] Natural brother COPD [facility] Natural father Diabetes [facility] Natural father Heart disease [facility] Natural mother Diabetes [facility] Natural mother Heart disease [facility] Natural sister Cancer [facility] Social History Social Habit Start Date Stop Date Quantity Comments Source Sex Assigned At [facility] Alcohol Comment 2016-07-01 2016-07-01 social last drink [facility] - 00:00:00 00:00:00 06/15/16 [facility] Smoking Status Start Date Stop Date Source Former smoker 2020-04-11 00:00:00 2020-04-11 00:00:00 [facility] Medications Ordered Filled Start Stop Current Ordering Indication Dosage Frequency Signature Comments Components Source Medication Medication Date Date Medication? Clinician (SIG) Name Name spironolact 2020-0 Yes 25mg QD Take [address] [facility] one 9-15 by mouth [facility] - (ALDACTONE) 09:45: daily. Medi steven 25 MG 26 Center tablet magnesium 2019-0 Yes Magnesium 400mg QD Take [address] [facility] oxide -15 deficiency tablet [facility] - (MAG-OX) 00:00: (400 mg Medica l 400 mg 00 total) by [place] (241.3 mg mouth magnesium) daily. tablet calcitrioL 2019-0 Yes Cirrhosis .5ug QD Take [address] (ROCALTROL) 9-15 of liver capsule L ukes - 0.5 MCG 00:00: without (0.5 mcg Med ical capsule 00 ascites, total) by Sina ter unspecified mouth hepatic daily. cirrhosis type (HCC) ergocalcife 2020- Yes Vitamin D [id number] Q7D Take [address] rol 04-11 deficiency capsule [facility]ukes - (ERGOCALCIF 00:00: 23:59 (50,000 Me dical MARIN) 1,250 00 :00 Units Center mcg (50,000 total) by unit) mouth once capsule a week. folic acid 2020- Yes Cirrhosis 1mg QD Take [address] (FOLVITE) 1 04-11 of liver tablet (1 [facility] - MG tablet 00:00: 23:59 without mg total) Medical 00 :00 ascites, by mouth Center unspecified daily. hepatic cirrhosis type (HCC) ranitidine 2019- No Screening 150mg Take 150 [...] Center mouth 2 (two) times daily. ergocalcife 2019-2019- No [id number] Q7D Take [address] rol 01-31 capsule [facility] - (ERGOCALCIF 00:00: 00:00 (50,000 Me dical MARIN) 1,250 00 :00 Units Center mcg (50,000 total) by unit) mouth once capsule a week. pantoprazol 2019-0 Yes 40mg QD Take [address] [facility] e - tablet (40 [facility] - (PROTONIX) 00:00: mg total) Me dical 40 MG 00 by mouth Center tablet daily. folic acid 2019-2019- No 1mg QD Take [address] (FOLVITE) 1 7-15 tablet (1 Fe kes - MG tablet 00:00: 00:00 mg total) Me dical 00 :00 by mouth Center daily. furosemide 2019- 2020- No 40mg Q.5D Take [address] (LASIX) 20 01-25 by mouth 2 Fe kes - MG tablet 16:18: 00:00 (two) Medica l 23 :00 times Center daily . spironolact 2020- No 25mg QD Take [address] one 01-25 by mouth [facility]ukes - (ALDACTONE) 16:18: 00:00 daily. Med ical 25 MG 23 :00 Center tablet calcitrioL 2020- No .5ug QD Take 0.[address] (ROCALTROL) 01-25 mcg by [facility]ukes - 0.5 MCG 16:16: 00:00 mouth Medical capsule 03 :00 daily. Center rifAXIMin Yes 550mg Q.5D Take 1 [facility] 550 mg Tab 01-25 tablet [facility]ukes - 00:00: (550 mg Medical 00 total) by Center mouth 2 (two) times daily. lactulose 0 Yes 20g Q.[id number] Take [address] (CHRONULAC) 01-25 [id number] mLs (20 g [facility]ukes - 20 gram/30 00:00: 3D total) by Oh dical mL solution 00 mouth 3 Cente r (three) times daily. calcitrioL 2019-0 2020- No .5ug QD Take [address] (ROCALTROL) 01-25 capsule Luke s - 0.5 MCG 00:00: 00:00 (0.5 mcg Medic al capsule 00 :00 total) by Center mouth daily. magnesium 2019- No 400mg QD Take [address] oxide 01-25 tablet [facility]ukes - (MAG-OX) 00:00: 00:00 (400 mg Medic al 400 mg 00 :00 total) by [place] (241.3 mg mouth magnesium) daily. tablet midodrine 2020- No 2.5mg Q.[id number] Take [address] (PROAMATINE 01-25 [id number] tablet [facility]ukes - ) 2.5 MG 00:00: [...] [facility] Sulfate HFA Sulfate HFA 4-09 [place] needed [facility] - 00:00: [facility] 00 [facility] Cimetidine Cimetidine Yes Mitzy [address] [place] as needed [facility] - [facility] Calcitriol Calcitriol Yes Mitzy [address] [place] [facility] Lactulose Lactulose Yes Mitzy [address] [place] [facility] Xifaxan Xifaxan Yes Mitzy [address] [place] [facility] Folic Acid Folic Acid Yes Mitzy [address] [place] [facility] Spironolact Spironolact Yes Mitzy [address] one one [place] [facility] Vitamin D2 Vitamin D2 Yes Mitzy [address] [place] [facility] MagOx 400 MagOx 400 Yes Mitzy [address] [place] with food [facility] - [facility] Tramadol Tramadol Yes Mitzy [address] HCl HCl [place] as needed [facility] Midodrine Midodrine Yes Mitzy [address] HCl HCl [place] [facility] Pantoprazol Pantoprazol Yes Mitzy [address] e Sodium e Sodium [place] mixed with Lukes - apple Memoria juice or l applesauce [facility] Immunizations Ordered Filled Immunization Date Status Comments Sourc e Immunization Name Name Hepatitis A (adult) Hepatitis A (adult) 2020-02-[address] [facility]00 [facility] Hepatitis B (adult) Hepatitis B (adult) 2020-02-[address] - 00:[facility] [facility] Vital Signs Vital Name Observation Time Observation Value Comments Source Systolic blood 2020-04-11 09:39:00 104 mm[Hg] [facility] Diastolic blood 2020-04-11 09:39:00 43 mm[Hg] [facility] Heart rate 2020-04-11 09:39:00 85 /min [facility] Body temperature 2020-04-11 09:39:00 36.28 Shaneka [facility] Respiratory rate 2020-04-11 09:39:00 18 /min [facility] Body height 2020-04-11 09:39:00 162.6 cm [facility] Body weight Measured 2020-04-11 09:39:00 84.959 kg [facility] BMI 2020-04-11 09:39:00 32.15 kg/m2 [facility] Oxygen saturation in 2020-04-11 09:39:00 95 /min [facility] Arterial blood by Medical Ce nter Pulse oximetry Procedures Procedure Date / Time Performing Clinician Source Performed XR DXA BONE DENSITY STUDY 2020-04-11 11:51:00 Kristofer Montgomery CH, I [facility] ALPHA FETOPROTEIN (AFP), 2020-04-11 11:13:00 Sia Riley [facility] TUMOR MARKER [facility] BILIRUBIN, DIRECT 2020-04-11 11:13:00 Sia Riley [facility] COMPREHENSIVE METABOLIC 2020-04-11 11:13:00 Sia Riley [facility] PROTHROMBIN TIME/INR 2020-04-11 11:13:00 Sia Riley [facility] CBC W/PLT COUNT & AUTO 2020-04-11 11:13:[address] [facility] PROTHROMBIN TIME/INR 2020-03-10 08:03:00 Kristofer Montgomery [facility] COMPREHENSIVE METABOLIC 2020-03-10 08:03:00 Kristofer Montgomery [facility] CBC W/PLT COUNT & AUTO 2020-03-10 08:03:00 Kristofer Montgomery [facility] BILIRUBIN, DIRECT 2020-03-10 08:03:00 AmericaKristofer theodore [facility] MISCELLANEOUS LAB ORDER 2020-02-15 12:29:00 AmericaKristofer theodore [facility] MAGNESIUM 2020-02-15 12:29:00 AmericaKristofer theodore [facility] BILIRUBIN, DIRECT 2020-02-15 12:29:00 AmericaKristofer [facility] COMPREHENSIVE METABOLIC 2020-02-15 12:29:00 AmericaKristofer [facility] PROTHROMBIN TIME/INR 2020-02-15 12:29:00 AmericaKristofer [facility] CBC W/PLT COUNT & AUTO 2020-02-15 12:29:00 AmericaKristofer theodore [facility] PROTHROMBIN TIME/INR 2020-02-08 10:23:00 AmericaKristofer [facility] COMPREHENSIVE METABOLIC 2020-02-08 10:23:00 AmericaKristofer [facility] CBC W/PLT COUNT & AUTO 2020-02-08 10:23:00 AmericaKristofer theodore [facility] BILIRUBIN, DIRECT 2020-02-08 10:23:00 AmericaKristofer [facility] PLATELET ESTIMATION 2020-02-08 10:23:00 AmericaKristofer [facility] PROTHROMBIN TIME/INR 2020-02-01 09:25:00 AmericaKristofer theodore [facility] COMPREHENSIVE METABOLIC 2020-02-01 09:25:00 AmericaKristofer [facility] CBC W/PLT COUNT & AUTO 2020-02-01 09:25:00 AmericaKristofer theodore [facility] BILIRUBIN, DIRECT 2020-02-01 09:25:00 AmericaKristofer theodore [facility] RHYTHM STRIP - SCAN 2020-01-27 10:00:12 Provider, Default [facility] CARDIAC CATH REPORT - SCAN 2020-01-27 10:[facility] LE[facility]KO-REDUCED 2020-01-26 22:41:07 Miguel Angel, Kaylin [facility] PLATELETS [facility] METANEPHRINES 2020-01-26 14:51:00 SantiBlanca montalvo [facility] HEPAT[facility] FUNCTION PANEL 2020-01-26 03:50:00 [facility] PROTHROMBIN TIME/INR 2020-01-26 03:50:00 [facility] CALCIUM, IONIZED 2020-01-26 03:50:00 [facility] COMPREHENSIVE METABOLIC 2020-01-26 03:50:00 [facility]OS[facility] 2020-01-26 03:50[facility] 2020-01-26 03:50:00 [place] [facility] CBC W/PLT COUNT & AUTO 2020-01-26 03:50:00 Florian Kinney [facility] HEPATIC FUNCTION PANEL 2020-01-25 03:47:00 [facility] PROTHROMBIN TIME/INR 2020-01-25 03:47:00 [facility] BASIC METABOLIC PANEL (7) 2020-01-25 03:47:00 [place] [facility] MAGNESIUM 2020-01-25 03:47:00 [place] [facility] CBC W/PLT COUNT & AUTO 2020-01-25 03:47:00 Florian Kinney [facility] (CELLAVISION MANUAL DIFF) 2020-01-25 03:47:00 Florian Kinney [facility] TRANSFUSION SERVICE REPORT 2020-01-24 18:00:13 Provider, [facility] PULMONARY FUNCTION - SCAN 2020-01-24 13:10:09 Provider, [facility] SPIROMETRY 2020-01-24 10:41:00 Mariana Lin [facility] DLCO (SINGLE BREATH 2020-01-24 10:41:00 Shaib, Fidaa [facility] - DIFFUSION) [facility] LUNG VOLUMES 2020-01-24 10:41:00 [facility] 6 MINUTE WALK(FOR LUNG 2020-01-24 10:20:00 Delia Mariana [facility] - TRANSPLANT ONLY) [facility] HEPATIC FUNCTION PANEL 2020-01-24 03:57:00 [facility] PROTHROMBIN TIME/INR 2020-01-24 03:57:00 [facility] CALCIUM, IONIZED 2020-01-24 03:57:00 Buffy Nicoleo A [facility] PHOSPHORUS 2020-01-24 03:57:00 Kermit Nicole [facility] BASIC METABOLIC PANEL (7) 2020-01-24 03:57:00 [place] [facility] MAGNESIUM 2020-01-24 03:57:00 Leena Arias [facility] CBC W/PLT COUNT & AUTO 2020-01-24 03:57:00 [place] [facility] PREPARE LEUKO-REDUCED RBC 2020-01-23 23:54:[address] [facility] TRANSFUSION SERVICE REPORT 2020-01-23 18:00:37 ProviderBozena [facility] - - SCAN Scanning [facility] HEPATIC FUNCTION PANEL 2020-01-23 04:32:00 [facility] PROTHROMBIN TIME/INR 2020-01-23 04:32:00 [facility] B-TYPE NATRIURETIC FACTOR 2020-01-23 04:32:00 Kermit Nicole [facility] (BNP) [facility] CALCIUM, IONIZED 2020-01-23 04:32:00 Kermit Nicole [facility] PHOSPHORUS 2020-01-23 04:32:00 Kermit Nicole [facility] BASIC METABOLIC PANEL (7) 2020-01-23 04:32:00 Leena Arias [facility] MAGNESIUM 2020-01-23 04:32:00 Leena Arias [facility] CBC W/PLT COUNT & AUTO 2020-01-23 04:32:00 [place] [facility] (CELLAVISION MANUAL DIFF) 2020-01-23 04:32:00 [place] [facility] PREPARE LEUKO-REDUCED 2020-01-22 23:54:00 Miguel Angel, Kaylin [facility] PLATELETS [facility] TRANSFUSION SERVICE REPORT 2020-01-22 18:01:00 Provider, [facility] TRANSFUSE LEUKO-REDUCED RED 2020-01-22 14:30:53 [place] [facility] - BLOOD CELLS [facility] CORTISOL 2020-01-22 08:23:00 IsmailyMeChristine [facility] CALCIUM, IONIZED 2020-01-22 04:35:00 Olamide Haet [facility] HEPATIC FUNCTION PANEL 2020-01-22 04:35:00 [facility] BASIC METABOLIC PANEL (7) 2020-01-22 04:35:00 [place] [facility] MAGNESIUM 2020-01-22 04:35:00 [place] [facility] CBC W/PLT COUNT & AUTO 2020-01-22 04:35:00 [place] [facility] (CELLAVISION MANUAL DIFF) 2020-01-22 04:35:00 [place] [facility] PROTHROMBIN TIME/INR 2020-01-22 04:34:00 Gald[facility] DIRECT [facility]HG (KRISTI)/DIRECT 2020-01-22 04:34:00 Gregory, [facility] ABORH, MANUAL 2020-01-22 04:34:00 Gregory, [facility] TRANSFUSION SERVICE REPORT 2020-01-21 18:00:48 Provider, [facility] BODY FLUID CULTURE + GRAM 2020-01-21 16:54:00 Miguel Angel, Kaylin [facility] BODY FLUID CELL COUNT WITH 2020-01-21 16:54:00 Miguel Angel, Kaylin C [facility] US PARACENTESIS 2020-01-21 16:40:00 [facility] MISCELLANEOUS LAB ORDER 2020-01-21 09:31:00 Isbrandonsedrick [facility] HEPATIC FUNCTION PANEL 2020-01-21 09:31:00 [facility] PROTHROMBIN TIME/INR 2020-01-21 09:31:00 [facility] COMPREHENSIVE METABOLIC 2020-01-21 09:31:00 [facility] PHOSPHORUS 2020-01-21 09:31:00 Leland [facility] MAGNESIUM 2020-01-21 09:31:00 Leena Arias [facility] CORTISOL 2020-01-21 09:31:00 Isbrandonsedrick [facility] RETICULOCYTE COUNT 2020-01-21 09:31:[address] [facility] PERIPHERAL BLOOD SMEAR - 2020-01-21 09:31:00 Miguel Angel, Kaylin [facility] CBC W/PLT COUNT & AUTO 2020-01-21 09:31:00 Micheal Haneet [facility] XR CHEST 1 VIEW 2020-01-21 09:10:00 [facility] METANEPHRINES, 24 HOUR 2020-01-20 22:51:00 [facility] URINE [facility] CATECHOLAMINES, 2020-01-20 22:51:00 [facility] [place] FRACTIONATED, 24HR URINE Medical Center TYPE AND SCREEN, AUTOMATED 2020-01-20 20:39:00 Miguel Angel, Kaylin C [facility] XR CHEST 1 VIEW 2020-01-20 20:28:00 [facility] [place]/BEDSIDE [facility] TRANSFUSION SERVICE REPORT 2020-01-20 18:01:30 Bozena Lopes [facility] - - SCAN Scanning [facility] MR ABDOMEN WITHOUT IV 2020-01-20 17:54:00 [facility] [place] [facility] CONTRAST [facility] HEPATIC FUNCTION PANEL 2020-01-20 04:10:00 [facility] PR[facility]/INR 2020-01-20 04:10:00 [facility] CALCIUM, IONIZED 2020-01-20 04:10:00 Leland [facility] COMPREHENSIVE METABOLIC 2020-01-20 04:10:00 [facility] PHOSPH[facility]US 2020-01-20 04:10:00 Leland [facility] MAGNESIUM 2020-01-20 04:10:00 Leena Arias [facility] CBC W/PLT COUNT & AUTO 2020-01-20 04:10:00 Leland [facility] (CELLAVISION MANUAL DIFF) 2020-01-20 04:10:00 [facility] LEUKO-REDUCED RBC 2020-01-19 23:54:00 Miguel Angel, Kaylin [facility] URINALYSIS W/ MICROSCOPIC 2020-01-19 23:19:00 Russ Ha [facility] SODIUM, RANDOM URINE 2020-01-19 23:19:00 Leland [facility] BLOOD CULTURE 2020-01-19 21:45:00 [facility] BLOOD CULTURE 2020-01-19 21:44:00 [facility] [id number] 2020-01-19 21:43:00 Kristofer Montgomery [facility] TRANSFUSION SERVICE REPORT 2020-01-19 18:01:[address] [facility] BLOOD GAS, ARTERIAL 2020-01-19 15:44:00 Kristofer Montgomery [facility] CRYPTOCOCCAL ANTIGEN 2020-01-19 15:04:00 Kristofer Montgomery [facility] MUMPS ANTIBODY, IGG 2020-01-19 15:04:00 Kristofer Montgomery [facility] RUBELLA ANTIBODY, IGG 2020-01-19 15:04:00 Kristofer Montgomery [facility] RUBEOLA ANTIBODY IGG 2020-01-19 15:04:00 Kristofer Montgomery [facility] VARICELLA ZOSTER ANTIBODY, 2020-01-19 15:04:00 Kristofer Montgomery [facility] L CATH / CORONARY 2020-01-19 13:47:00 Brian Browning [facility] ANGIOS (+/- LV) [facility] PROTHROMBIN TIME/INR 2020-01-19 11:00:00 [facility] US BREAST BILATERAL 2020-01-19 09:10:00 Kristofer Montgomery [facility] HEPATIC FUNCTION PANEL 2020-01-19 04:11:00 [facility] CALCIUM, IONIZED 2020-01-19 04:11:00 Leland [facility] COMPREHENSIVE METABOLIC 2020-01-19 04:11:00 [facility] PHOSPHORUS 2020-01-19 04:11:00 [facility] B-TYPE NATRIURETIC FACTOR 2020-01-19 04:11:00 [facility] (BNP) [facility] ALDOSTERONE 2020-01-19 04:11:00 [facility] RENIN, PLASMA 2020-01-19 04:11:00 [facility] METANEPHRINES 2020-01-19 04:11:00 [facility] MAGNESIUM 2020-01-19 04:11:00 [place] [facility] CBC W/PLT COUNT & AUTO 2020-01-19 04:11:00 Leland [facility] DIFFERENTIAL [facility] CT ABDOMEN WITHOUT IV 2020-01-19 00:40:00 [place] [facility] CONTRAST [facility] US RENAL COMPLETE 2020-01-19 00:20:00 [facility] PREPARE LEUKO-REDUCED 2020-01-18 23:54:00 Juana [facility] PLATELETS [facility] URINALYSIS W/ MICROSCOPIC 2020-01-18 20:49:00 Leland [facility] SODIUM, RANDOM URINE 2020-01-18 20:49:00 Leland [facility] PROTEIN, RANDOM URINE 2020-01-18 20:49:00 Leland [facility] CREATININE, RANDOM URINE 2020-01-18 20:49:00 Leland [facility] EOSINOPHIL SMEAR, URINE 2020-01-18 20:49:00 [facility] TRANSFUSION SERVICE REPORT 2020-01-18 18:31:51 Provider [facility] - - SCAN Scanning [facility] TRANSFUSE LEUKO-REDUCED RED 2020-01-18 13:21:26 Miguel Angel [facility] BLOOD CELLS [facility] NM MYOCARDIAL PERFUSION 2020-01-18 09:20:00 [facility] Medical C enter TREADMILL 2020-01-18 08:57:35 Unknown, Hl7 [facility](NON-NUCLEAR Medical Ce nter TREADMILL) ECG 12-LEAD 2020-01-18 08:46:42 Unknown, Hl7 [facility] BASIC METABOLIC PANEL (7) 2020-01-18 06:10:00 [place] [facility] MAGNESIUM 2020-01-18 06:10:00 [facility] T SPOT TB 2020-01-18 06:10:00 Miguel Angel [facility] HEPATIC FUNCTION PANEL 2020-01-18 06:10:00 Roscoe Ahmadi [facility] CBC W/PLT COUNT & AUTO 2020-01-18 06:10:00 [facility] (CELLAVISION MANUAL DIFF) 2020-01-18 06:10:00 [facility]ana [facility] ECG 12-LEAD 2020-01-17 11:05:03 Brian Brow[facility] REPORT OF PROCEDURE - 2020-01-17 09:11:05 George, [facility] REPORT OF PROCEDURE - 2020-01-17 08:39:23 Doris [facility] TISSUE EXAM 2020-01-17 08:15:00 Doris [facility] TRANSFUSE LEUKO-REDUCED 2020-01-17 08:04:58 [place] [facility] UPPER ENDOSCOPY,BIOPSY 2020-01-17 08:00:00 Doris [facility] COLONOSCOPY 2020-01-17 08:00:00 Doris [facility] PROTHROMBIN TIME/INR 2020-01-17 03:56:00 Mary Roper [facility] BASIC METABOLIC PANEL (7) 2020-01-17 03:56:00 [facility] MAGNESIUM 2020-01-17 03:56:00 [facility]ana [facility] CBC W/PLT COUNT & AUTO 2020-01-17 03:56:00 [facility] [facility] (CELLAVISION MANUAL DIFF) 2020-01-17 03:56:00 [facility] TRANSFUSION SERVICE REPORT 2020-01-16 18:00:[address] [facility] BLOOD CULTURE 2020-01-16 12:25:00 Shady [facility]les [facility] LACTATE DEHYDROGENASE (LDH) 2020-01-16 12:24:00 Iván Juan [facility] RETICULOCYTE COUNT 2020-01-16 12:23:[address] [facility] BLOOD CULTURE 2020-01-16 11:25:00 Shady [facility]les [facility] HIV-1 ANTIGEN WITH HIV-1/2 2020-01-16 11:25:00 Shady Gonzáles [facility] VITAMIN B12 AND FOLATE 2020-01-16 11:25:00 [facility] 2020-01-16 11:25:00 Iván [facility] US ABDOMINAL WITH DOPPLER 2020-01-16 06:30:00 Shady Gonzáles [facility] PROTHROMBIN TIME/INR 2020-01-16 03:38:[address] [facility] HEPATIC FUNCTION PANEL 2020-01-16 03:38:00 [facility]IC [facility]OL[facility] PANEL (7) 2020-01-16 03:38:00 Leena Arias [facility] MAGNESIUM 2020-01-16 03:38:00 [place] [facility] CBC W/PLT COUNT & AUTO 2020-01-16 03:38:00 Arias [facility] DRUG SCREEN, URINE, 2020-01-15 21:52:00 Shady Gonzáles [facility] TRANSPLANT [facility] BLOOD TYPING, AUTOMATED 2020-01-15 18:16:00 Shady Gonzáles [facility] CHEST WITHOUT IV 2020-01-15 17:54:00 Shady Gonzáles [facility] XR CHEST 2 VIEWS 2020-01-15 16:57:00 EliecerShady davidson [facility] XR MANDIBLE 4 VIEWS MIN 2020-01-15 16:39:00 Shady Gonzáles [facility] VITAMIN D, 25-HYDROXY 2020-01-15 16:17:00 Shady Gonzáles [facility] COMPREHENSIVE METABOLIC 2020-01-15 16:17:00 Shady Gonzáles [facility] BILIRUBIN, DIRECT 2020-01-15 16:17:00 Shady Gonzáles [facility] CALCIUM, IONIZED 2020-01-15 16:17:00 Shady Gonzáles [facility] ZINC 2020-01-15 16:17:00 Shady Gonzáles [facility] ANTI-NUCLEAR ANTIBODY (REILLY) 2020-01-15 16:17:00 Shady Gonzáles [facility] ACTIN (SMOOTH MUSCLE) 2020-01-15 16:17:00 Shady Gonzáles [facility] ANTIBODY, IGG [facility] MITOCHONDRIA M2 ANTIBODY 2020-01-15 16:17:00 Shady Gonzáles [facility] (IGG) [facility] IRON, TIBC, % SAT. (WITHOUT 2020-01-15 16:17:00 Shady Gonzáles [facility] FERRITIN) [facility] FERRITIN 2020-01-15 16:17:00 Shady Gonzáles [facility] TRANSFERRIN 2020-01-15 16:17:00 Shady Gonzáles [facility] [id number]\\, SERUM 2020-01-15 16:17:00 Shady Gonzáles [facility] CERULOPLASMIN 2020-01-15 16:17:00 Shady Gonzáles [facility] ALPHA FETOPROTEIN (AFP), 2020-01-15 16:17:00 Shady Gonzáles [facility] TUMOR MARKER [facility] CARCINOEMBRYONIC ANTIGEN 2020-01-15 16:17:00 Shady Gonzáles [facility] (CEA) [facility] CARBOHYDRATE ANTIGEN 19-9 2020-01-15 16:17:00 Shady Gonzáles [facility] (CA 19-9) [facility] HEMOGLOBIN A1C 2020-01-15 16:17:00 Shady Gonzáles [facility] TSH 2020-01-15 16:17:00 Shady Gonzáles [facility] T3 2020-01-15 16:17:00 Shady Gonzáles [facility] T4 2020-01-15 16:17:00 Shady Gonzáles [facility] ETHANOL 2020-01-15 16:17:00 Shady Gonzáles Irene [facility] FIBRINOGEN 2020-01-15 16:17:00 [facility]/INR 2020-01-15 16:17:00 Shady Gonzáles [facility] APTT 2020-01-15 16:17:00 Shady Gonzáles [facility] HEPATITIS A ANTIBODY, IGM 2020-01-15 16:17:00 Shady Gonzáles [facility] HEPATITIS B SURFACE ANTIGEN 2020-01-15 16:17:00 Shady Gonzáles [facility] HEPATITIS B SURFACE 2020-01-15 16:17:00 Shady Gonzáles [facility] ANTIBODY [facility] HEPATITIS B CORE ANTIBODY, 2020-01-15 16:17:00 Shady Gonzáles [facility] TOTAL [facility] HEPATITIS B CORE ANTIBODY, 2020-01-15 16:17:00 Shady Gonzáles [facility] HEPATITIS C ANTIBODY 2020-01-15 16:17:00 Shady Gonzáles [facility] RPR 2020-01-15 16:17:00 [facility] CYTOMEGALOVIRUS ANTIBODY, 2020-01-15 16:17:00 Shady Gonzáles [facility] IGG [facility] CYTOMEGALOVIRUS ANTIBODY, 2020-01-15 16:17:00 Shady Gonzáles [facility] IGM [facility] EBV ANTIBODY, IGM 2020-01-15 16:17:00 Shady Gonzáles [facility] TYPE AND SCREEN, AUTOMATED 2020-01-15 16:17:00 Shady Gonzáles [facility] 2D ECHO W/ DOPPLER 2020-01-15 14:45:25 Ren Hernandez [facility] (CW/PW/COLOR) [facility] CAROTID DOPPLER BILATERAL 2020-01-15 14:41:00 Shady Gonzáles [facility] SODIUM, RANDOM URINE 2020-01-15 12:46:[address] [facility] CREATININE, RANDOM URINE 2020-01-15 12:46:00 Graciela Stone I [facility] AMMONIA 2020-01-15 08:32:[address] [facility] HEPATITIS PANEL, ACUTE 2020-01-15 08:32:[address] [facility] BASIC METABOLIC PANEL (7) 2020-01-15 03:56:[address] [facility] PROTHROMBIN TIME/INR 2020-01-15 03:56:00 [facility]CTION PANEL 2020-01-15 03:56:[address] [facility] MAGNESIUM 2020-01-15 03:56:[address] [facility] URIC ACID 2020-01-15 03:56:00 Shady Gonz[facility]les [facility] GAMMA GLUTAMYL TRANSFERASE 2020-01-15 03:56:[address] [facility] (GGT) [facility] PHOSPHORUS 2020-01-15 03:56:00 Eliecer [facility] LIPID PANEL 2020-01-15 03:56:00 Sh[facility] Gonz[facility] CBC W/PLT COUNT & AUTO 2020-01-15 03:56:00 Graciela Stone [facility] (CELLAVISION MANUAL DIFF) 2020-01-15 03:56:[address] [facility] BASIC METABOLIC PANEL (7) 2020-01-14 21:59:[address] [facility] PROTHROMBIN TIME/INR 2020-01-14 21:59:[address] [facility] HEPATIC FUNCTION PANEL 2020-01-14 21:59:[address] [facility] CBC W/PLT COUNT & AUTO 2020-01-14 21:59:00 [facility] & 2020-01-14 19:28:00 Tameka Hunter CH I [facility] - REF LABS) [facility] BASIC METABOLIC PANEL (7) 2020-01-03 14:34:00 Kadie Larry CH I [facility] HEPATIC FUNCTION PANEL 2020-01-03 14:34:00 [facility] PROTHROMBIN TIME/INR 2020-01-03 14:34:00 [facility] ALPHA FETOPROTEIN (AFP), 2020-01-03 14:34:00 [facility] - TUMOR MARKER [facility] CBC W/PLT COUNT & AUTO 2020-01-03 14:34:00 [facility] - DIFFERENTIAL [facility] Plan of Care Planned Activity Planned Date Details Comments Source Future Scheduled 2030-01-16 Scre[facility] - Test 00:00:00 malignant neoplasm of [facility] colon (procedure) [code = 454786218] Future Scheduled 2023-01-[address] [facility] Test 00:00:00 (procedure) [code = [facility] 42773863] Future Scheduled 2020-03-28 INFLUENZA VACCINE [facility] 00:00:00 [code = INFLUENZA VACCINE] Future Scheduled 2020-03-28 INFLUENZA VACCINE (#1[facility] [code = INFLUENZA Medical Ce nter VACCINE (#1)] Future Scheduled 2019-07-28 Medicare IPPE (WELCOME [facility] Test 00:00:00 TO MEDICARE) [code = [facility] Medicare IPPE (WELCOME TO MEDICARE)] Future Scheduled 2019 65+ PNEUMOCOCCAL [facility] Test 00:00:00 VACCINE (1 of 2 - PCV13) [code = 65+ PNEUMOCOCCAL VACCINE (1 of 2 - PCV13)] Future Scheduled 2019 P[address]OCOCCAL [address] Test 00:00:00 LOW/MEDIUM RISK (1 of Medica l Center 2 - PCV13) [code = PNEUMOCOCCAL 65+ LOW/MEDIUM RISK (1 of 2 - PCV13)] Future Scheduled 2004 BREAST CANCER [facility] 00:00:00 SCREENING [code = BREAST CANCER SCREENING] Future Scheduled 2004 COLONOSCOPY SCREENING [facility] Test 00:00:00 [code = COLONOSCOPY SCREENING] Future Scheduled 2004 SHINGLES VACCINES (#1) [facility] Test 00:00:00 [code = SHINGLES VACCINES (#1)] Future Scheduled 1975 Screening for [facility] 00:00:00 malignant neoplasm of cervix (procedure) [code = 373933364] Future Scheduled [address] [facility] - Test 00:00:00 malignant [facility] cervix (procedure) [code = 411390565] Future Scheduled [address] [facility] - Test 00:00:00 malignant neoplasm of [facility] breast (procedure) [code = 300659385] Encounters Start End Encounter Admission Attending Care Care Encounter Source Date/Time Date/Time Type Type Clinicians Facility Department ID 2020-02-21 2020-02-21 Outpatient Rafia Moratayat [id number] 16:00[facility]00 16:00:00 [facility] 2020-02-14 2020-02-14 [facility] [id number] 10:00:00 10:00:00 [facility] 2020-02-03 2020-02-03 [facility] [id number] 11:48:00 11:48:00 [facility] 2020-01-13 2020-01-13 [facility] [id number] 14:40:00 14:40:00 [facility] 2020-01-03 2020-01-03 Transition [place] [id number] 00:00:00 00:00:00 of Care Aye Mcmulleny [id number] [place] [id number] 2019-12-28 2019-12-31 [facility] FaustinadavidSean taylorjasvir De La Garza [facility] [id number] 21:39:45 13:10:00 Encounter Jacklyn Lewis [id number] [place] [id number] [place] [id number] 2019-11-03 2019-11-03 Outpatient Rafia Sanford [id number] 13:20:00 13:20:00 [facility] 2019-09-10 2019-09-10 Outpatient Rafia Sanford [id number] 09:30:00 09:30:00 [facility] 2019-08-31 2019-08-31 Outpatient Rafia Sanford [id number] 08:00:00 08:00:00 [facility] 2019-08-24 2019-08-24 Outpatient Rafia Sanford [id number] 10:41:00 10:41:00 [facility] 2019-08-19 2019-08-19 Outpatient Rafia Sanford [id number] 13:00:00 13:00:00 [facility] Results Test Description Test Time Test Comments Results Result Comments Source Comprehensive metabolic panel 2020-04-11 15:57:00 Test Item Value Reference Range Interpretation Comme nts Protein, Total (test code 6.5 6.0- 8.3 gm/dL = 2885-2) Albumin (test code = 3.1 g/dL 3.5-5 L 62413-4) Alkaline Phosphatase 108 U/L 40-150 (test code = 6768-6) Total Bilirubin (test 3.5 mg/dL 0.2-1.2 H code = 1974-2) Sodium (test code = 135 meq/L 136-145 L 2951-2) Potassium (test code = 5.1 meq/L 3.5-5.1 2823-3) Chloride (test code = 105 meq/L 98-107 5-0) CO2 (test code = 2027-9) 22 meq/L 22-29 BUN (test code = 3094-0) 40 mg/dL 7-21 H Creatinine (test code = 2.28 mg/dL 0.57-1.25 H 2160-0) Glucose (test code = 105 mg/dL 70-105 2345-7) Calcium (test code = 9.1 mg/dL 8.4-10.2 43019-0) AST (test code = 1920-8) 36 U/L 5-34 H ALT (test code = 1742-6) 15 U/L 6-55 EGFR (test code = 21 mL/min/1.73 [place] [address]-2) ACCURATE CREATININE JACOB ANH IN PREDICTING GLOMERULAR FILT RATION RATE. ESTIMATED GFR IS NOT APPLICAB LE FOR DIALYSIS PATIEN TS. VAELNTE (test code = VALENTE) Avionics Mechanic ID - BSSpecimen moderately icteric Lab Interpretation (test Abnormal code = 66218-6) [facility] [id number] 15:57:00 Test Item Value Reference Range Interpretation Comments Bilirubin, Direct (test code 1.9 mg/dL 0.1-0.5 H = 1968-01) VALENTE (test code = VALENTE) Avionics Mechanic ID - BS Lab Interpretation (test Abnormal code = 40586-7) [facility], [id number] 15:57:00 Test Item Value Reference Range Interpretation Comments BILIRUBIN DIRECT (BEAKER) (test 1.9 mg/dL 0.1-0.5 H code = 706) Avionics Mechanic ID - BSCOMPREHENSIVE METABOLIC [id number] 15:57:00 Test Item Value Reference Range Interpretation Comments TOTAL PROTEIN 6.5 gm/dL 6.0-8.3 (BEAKER) (test code = 770) ALBUMIN (BEAKER) 3.1 g/dL 3.5-5.0 L (test code = 1145) ALKALINE PHOSPHATASE 108 U/L 40-150 (BEAKER) (test code = 346) BILIRUBIN TOTAL 3.5 mg/dL 0.2-1.2 H (BEAKER) (test code = 377) SODIUM (BEAKER) (test 135 meq/L 136-145 L code = 381) POTASSIUM (BEAKER) 5.1 meq/L 3.5-5.1 (test code = 379) CHLORIDE (BEAKER) 105 meq/L 98-107 (test code = 382) CO2 (BEAKER) (test 22 meq/L 22-29 code = 355) BLOOD UREA NITROGEN 40 mg/dL 7-21 H (BEAKER) (test code = 354) CREATININE (BEAKER) 2.28 mg/dL 0.57-1.25 H (test code = 358) GLUCOSE RANDOM 105 mg/dL 70-105 (BEAKER) (test code = 652) CALCIUM (BEAKER) 9.1 mg/dL 8.4-10.2 (test code = 697) AST (SGOT) (BEAKER) 36 U/L 5-34 H (test code = 353) ALT (SGPT) (BEAKER) 15 U/L 6-55 (test code = 347) EGFR (BEAKER) (test 21 mL/min/1.73 ESTIMA MADAI GFR IS code = 1092) sq m NOT ACCURATE CREATININE CLEARANCE IN PREDICTING GLOMERULAR FILTRATION RATE . ESTIMATED GFR I S NOT APPLICABLE FOR DIALYSIS PATIEN TS. Avionics Mechanic ID - BSSpecimen moderately ictericAlpha fetoprotein (AFP), tumor marker 2020-04-11 15:41:00 Test Item Value Reference Range Interpretation Comments Alpha-Fetoprotein (test code <2.0 <10.0 ng/mL = 1834-1) VALENTE (test code = VALENTE) Avionics Mechanic ID - BS Lab Interpretation (test Normal code = 25825-9) [facility] (AFP), TUMOR [id number] 15:41:00 Test Item Value Reference Range Interpretation Comments ALPHA-FETOPROTEIN (BEAKER) (test code < ng/mL <10.0 = 1094) Avionics Mechanic ID - BSRAD, BONE DENSITY [id number] 13:34:00Referring: Dr. Rowdy Zhang for Exam:->liver transplant waiting listFINAL REPORT Bone density study, 04/11/2020 Clinical History: Screening Bone mineral density measurementLumbar spine0.866 gm/tp5Emvlbyk neck0.714 gm/cm2 Standard deviation fromyoung adult population (T-score)Lumbar spine-2.6Femoral neck-2.3 Standard deviation for age adjusted population (Z-score)Lumbar spine- 1.7Femoral neck-1.2 According to medical literature, this corresponds to greater than 2 times increased risk of an osteoporotic fracture of the lumbar spine as compared to the young adult population. The femoral neck bone mineral density corresponds to 1-2 times increased risk of an osteoporotic fracture as compared to the young adult population. 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 Complete computer analysis will be se nt shortly. Diagnostic criteria for osteoporosisBMD: Bone mineral density Normal: BMD measurement less than one standard deviation from young adult populationOsteopenia: BMD measurement between 1 and2.5 standard deviationsOsteoporosis: BMD measurement greater than 2.5 standard deviationsSevere osteoporosis: Osteoporosis and one or more fragility fractures Signed: Jorge Brooks Verified Date/Time: 04/11/2020 13:34:32 Reading Location: [address] Mammo Reading Room XR dxa bone density [id number] 13:34:00 Interface, External Ris In - 04/11/2020 1:36 PM CDTFINAL REPORT Bone densitystudy, 04/11/2020 Clinical History: Screening Bone mineral density measurementLumbar spine0.866 gm/ki7Uvnmchs neck0.714 gm/cm2 Standard deviation from young adult population (T-score)Lumbar spine-2.6Femoral neck-2.3 Standard deviation for age adjusted population (Z-score)Lumbar spine-1.7Femoral neck-1.2 According to medical literature, this corresponds to greater than 2 times increased risk of anosteoporotic fracture of the lumbar spine as compared to the young adult population. The femoral neck bone mineral density corresponds to 1-2 times increased risk of an osteoporotic fracture as compared to the young adult population. Impression: Osteoporosis of the lumbar spine and osteopenia of thefemoral neck. Complete computer analysis will be sent shortly. Diagnostic criteria for osteoporosisBMD: Bone mineral density Normal: BMD measurement less than one standard deviation from young adult populationOsteopenia: BMD measurement between 1 and 2.5 standard deviationsOsteoporosis: BMD measurement greater than 2.5 standard deviationsSevere osteoporosis: Osteoporosis and one or more fragility fractures Signed: Jorge Brooks Verified Date/Time: 04/11/2020 13:34:32 Reading Location: [address] Mammo Reading Room [facility][id number] 13:02:00 Test Item Value Reference Range Interpretation Comments Protime (test code = 17.4 11.9- 14.2 H 5902-2) seconds INR (test code = 1.47 <=5.90 6301-6) VALENTE (test code = VALENTE) Effective 12/23/2018: PT Reference Range ChangeNew: 11.9-14.2 Previous: 11.7-14.7 RECOMMENDED COUMADIN/WARFARIN INR THERAPY RANGESSTANDARD DOSE: 2.0-3.0 Includes: PROPHYLAXIS for venous thrombosis, systemic embolization; TREATMENT for venous thrombosis and/or pulmonary embolus.HIGH RISK: Target INR is 2.5-3.5 for patients wiht mechanical heart valves. Lab Interpretation Abnormal (test code = 93434-6) [facility] Hospital[facility]HR[facility]/[id number] 13:02:00 Test Item Value Reference Range Interpretation Comments PROTIME (BEAKER) (test code = 17.4 seconds 11.9-14.2 H 759) INR (BEAKER) (test code = 370) 1.47 <=5.90 Effective 12/23/2018: PT Reference Range ChangeNew: 11.9-14.2 Previous: 11.7- 14.7RECOMMENDED COUMADIN/WARFARIN INR THERAPY RANGESSTANDARD DOSE: 2.0-3.0 Includes: PROPHYLAXIS for venous thrombosis, systemic embolization; TREATMENT for venous thrombosis and/or pulmonary embolus.HIGH RISK: Target INR is2.5-3.5 for patients wiht mechanical heart valves.CBC with platelet count + automated [id number] 12:52:00 Test Item Value Reference Range Interpretation Comments WBC (test code = 6690-2) 3.5 3.5- 10.5 K/L RBC (test code = 789-8) 2.51 3.93- 5.22 M/L L MCHC (test code = 786-4) 31.1 32.2- 35.5 GM/DL L Hematocrit (test code = 4544-3) 30.2 % 34.1-44.9 L MCV (test code = 787-2) 120.3 fL 79.4-94.8 H MCH (test code = 785-6) 37.5 pg 25.6-32.2 H RDW (test code = 788-0) 14.6 % 11.7-14.4 H Platelets (test code = 777-3) 57 150- 450 K/CU MM L MPV (test code = 66929-9) 10.4 fL 9.4-12.3 nRBC (test code = 413) 0 0- 0 /100 WBC % Neutros (test code = 429) 60 % % Lymphs (test code = 430) 19 % % Monos (test code = 431) 12 % % Eos (test code = 432) 8 % % Baso (test code = 437) 1 % # Neutros (test code = 670) 2.09 1.56- 6.13 K/L # Lymphs (test code = 414) 0.67 1.18- 3.74 K/L L # Monos (test code = 415) 0.43 0.24- 0.36 K/L H # Eos (test code = 416) 0.28 0.04- 0.36 K/L # Baso (test code = 417) 0.02 0.01- 0.08 K/L Immature Granulocytes-Relative 0 % 0-1 (test code = 2801) Lab Interpretation (test code = Abnormal 79991-5) [facility] W/PLT COUNT & AUTO [id number] 12:52:00 Test Item Value Reference Range Interpretation Comments WHITE BLOOD CELL COUNT (BEAKER) 3.5 K/ L 3.5-10.5 (test code = 775) RED BLOOD CELL COUNT (BEAKER) 2.51 M/ L 3.93-5.22 L (test code = 761) HEMOGLOBIN (BEAKER) (test code = 9.4 GM/DL 11.2-15.7 L 410) HEMATOCRIT (BEAKER) (test code = 30.2 % 34.1-44.9 L 411) MEAN CORPUSCULAR VOLUME (BEAKER) 120.3 fL 79.4-94.8 H (test code = 753) MEAN CORPUSCULAR HEMOGLOBIN 37.5 pg 25.6-32.2 H (BEAKER) (test code = 751) MEAN CORPUSCULAR HEMOGLOBIN CONC 31.1 GM/DL 32.2-35.5 L (BEAKER) (test code = 752) RED CELL DISTRIBUTION WIDTH 14.6 % 11.7-14.4 H (BEAKER) (test code = 412) PLATELET COUNT (BEAKER) (test code 57 K/CU MM 150-450 L = 756) MEAN PLATELET VOLUME (BEAKER) 10.4 fL 9.4-12.3 (test code = 754) NUCLEATED RED BLOOD CELLS (BEAKER) 0 /100 WBC 0-0 (test code = 413) NEUTROPHILS RELATIVE PERCENT 60 % (BEAKER) (test code = 429) LYMPHOCYTES RELATIVE PERCENT 19 % (BEAKER) (test code = 430) MONOCYTES RELATIVE PERCENT 12 % (BEAKER) (test code = 431) EOSINOPHILS RELATIVE PERCENT 8 % (BEAKER) (test code = 432) BASOPHILS RELATIVE PERCENT 1 % (BEAKER) (test code = 437) NEUTROPHILS ABSOLUTE COUNT 2.09 K/ L 1.56-6.13 (BEAKER) (test code = 670) LYMPHOCYTES ABSOLUTE COUNT 0.67 K/ L 1.18-3.74 L (BEAKER) (test code = 414) MONOCYTES ABSOLUTE COUNT (BEAKER) 0.43 K/ L 0.24-0.36 H (test code = 415) EOSINOPHILS ABSOLUTE COUNT 0.28 K/ L 0.04-0.36 (BEAKER) (test code = 416) BASOPHILS ABSOLUTE COUNT (BEAKER) 0.02 K/ L 0.01-0.08 (test code = 417) IMMATURE GRANULOCYTES-RELATIVE 0 % 0-1 PERCENT (BEAKER) (test code = 2801) CBC with platelet count + automated [id number] 05:00:00 Test Item Value Reference Interpretation Comments [...] ) RDW (test code = 12.7 % -15 ) Platelets (test 60 140- 400 L Review of th e code = ) Thousand/uL peripheral s mear revealsdecrease d numbers of plat elets. MPV (test code = 11.6 fL 7.5-12.5 6717868) # Neutros (test 1480 1,500 - 7,800 L code = 4770456) cells/uL # Lymphs (test code 664 850- [...] RAC) Organization Information: Site ID: RGA Name: [employer] Address: [address] [place] [id number] Director: Alonso Carrasco Lab Interpretation Abnormal (test code = 27404-8) [facility] [id number] 12:14:00 Test Item Value Reference Range Interpretation Comments SCAN RESULT (test code = 3053996) Miscellaneous lab [id number] 12:14:00Scan ResultQUEST NON-INTERFACED LABCHI [facility] CenterMagnesium2020-07-21 13:17:00 Test Item Value Reference Range Interpretation Comments Magnesium (test code = 1.8 mg/dL 1.6-2.6 06551-4) VALENTE (test code = VALENTE) Avionics Mechanic ID - LM Lab Interpretation (test Normal code = 26032-1) [facility]2020-07-21 13:17:00 Test Item Value Reference Range Interpretation Comments MAGNESIUM (BEAKER) (test code = 1.8 mg/dL 1.6-2.6 627) Avionics Mechanic ID - LMCOMPREHENSIVE METABOLIC [id number] 13:17:00 Test Item Value Reference Range Interpretation [...] S NOT APPLICABLE FOR DIALYSIS PATIEN TS. Avionics Mechanic ID - LMSpecimen moderately ictericBILIRUBIN, [id number] 13:17:00 Test Item Value Reference Range Interpretation Comments BILIRUBIN DIRECT (BEAKER) (test 2.5 mg/dL 0.1-0.5 H code = 706) Avionics Mechanic ID - LMPROTHROMBIN TIME/[id number] 13:05:00 Test Item Value Reference Range Interpretation [...] mechanical heart valves.CBC W/PLT COUNT & AUTO [id number] 12:59:00 Test Item Value Reference Range Interpretation [...] PERCENT (BEAKER) (test code = 2801) PLATELET [id number] 15:30:00 Test Item Value Reference Range Interpretation Comments Platelet Estimate (test DECREASED ADEQUATE A code = 00275-4) VALENTE (test code = VALENTE) FASTING:YESFASTING: YES RAC (test code = RAC) Performing Organization Information: Site ID: RGA Name: [facility] Address: [address] [place] [id number] Director: Alonso Carrasco Lab Interpretation (test Abnormal code = 63654-5) [facility] 10:36:00 Test Item Value Reference Interpretation Comments Range Metanephrine (test 46 pg/mL < OR = 57 This mushtaq t was developed code = 5886887) and its anal ytical performance characteristics havebeen determined by [facility].It h as not been cleared or appr jean-claude by FDA. This assay has been validatedpursua nt to the CLIA regulation s and is used for clinic al purposes. Normetanephrine 213 pg/mL < OR = 148 H This test w as developed (test code = and its analyti steven 1293848) performance characteristics havebeen determined by [employer] [facility].It h as not been [...] Reference: (1) Latrice Lorenz et al, Plasma Ruffler mogranin A or Urine FractionatedMet anephrines Follow-Up Testi ng Improves the Diagnostic Accuracy of PlasmaFractiona madai Metanephrines f or Pheochromocytom a. The Journal of ClinicalEndocri nology and Metabolism 93 ( 1),91-95, 2008. For addit ional information, pl ease refer tohttp://educat ion.ZeOmega/f aq/MetFract Free(This link is being provided for informational/e ducational purposes only.) This test was developed a nd its analytical perf ormance characteristics havebeen determined by [facility].It h as not been cleared or appr jean-claude by FDA. This assay has been validatedpursua nt to the CLIA regulation s and is used for clinic al purposes. VALENTE (test code = Performing Lab VALENTE) EZ [facility] [facility] [address] [place] [address] Mark Encarnacion MD, PhD, AMINA Lab Interpretation Abnormal (test code = 80308-9) [facility] HospitalCatecholamines, Fractionated, 24hr [id number] 11:55:00 Test Item Value Reference Interpretation Comments Range TOTAL VOLUME (test 1000 mL code = 0401294) Epinephrine,24 Hr <2 2- 24 mcg/24 h L Result b elow clinical Ur (test code = reportable r von for ) this analyte, w hich is 2 mcg/L.Repo rted result was calc ulated using 2 mcg/L. This test was develo ped and its analyti steven performance characteristics havebeen determ ined by [facility] .It has not been cl eared or approved by FDA. This assay has been validatedpursua nt to the CLIA regula tions and is used for clinical purpos es. Norepinephrine 9 15- 100 mcg/24 L This test was (test code = h developed and i ts ) analytical performance characteristics havebeen determ ined by [facility] .It has not been cl eared or approved by FDA. This assay has been validatedpursua nt to the CLIA regula tions and is used for clinical purpos es. Calculated Total 9 26- 121 mcg/24 L This mushtaq t was E+Ne (test code = h developed and its 20190907) analytical performance characteristics havebeen determ ined by [facility] .It has not been cl [...] steven performance characteristics havebeen determ ined by [facility] .It has not been cl eared or approved by FDA. This assay has been validatedpursua nt to the CLIA regula tions and is used for clinical purpos es. Creatinine,24 Hr 0.88 0.50- 2.15 Urin (test code = g/24 h ) VALENTE (test code = Performing Lab VALENTE) [facility] [address] [place] [address] Mark Encarnacion MD, PhD, AMINA Lab Interpretation Abnormal (test code = 73710-3) [facility]LL[facility]OUS LAB [id number] 12:33:00 Test Item Value Reference Range Interpretation Comments SCAN RESULT (test code = 4023079) [id number] 16:28:00 Test Item Value Reference Range Interpretation Comments Lab Interpretation (test code = Normal 71303-1) [facility]ane[facility]ines, 24 hour [id number] 12:57:00 Test Item Value Reference Interpretation Comments Range TOTAL VOLUME (test 1000 mL code = 2075857) Metanephrine (test 205 90- 315 This mushtaq t was code = 1737059) mcg/24 h developed an d its analytical perf ormance characteristics havebeen determ ined by [facility] .It has not been cleare d or approved by FDA . This assay has been validatedpursua nt to the [facility] regula tions and is used for clinical purpos es. Normetanephrine 657 122- 676 This test w as (test code = mcg/24 h developed and i ts 20191029) analytical perf ormance characteristics havebeen determ ined by [employer] [facility] .It has not been cleare d or [...] perf ormance characteristics havebeen determ ined by [facility] .It has not been cleare d or approved by FDA . This assay has been validatedpursua nt to the [facility] regula tions and is used for clinical purpos es. VALENTE (test code = Performing Lab VALENTE) [facility] [facility] [address] [place] [address] Mark Encarnacion MD, PhD, AMINA Lab Interpretation Abnormal (test code = 76168-9) [facility] HospitalCalcium, [id number] 05:42:00 Test Item Value Reference Range Interpretation Comments Calcium, Ion (test code = 1994-3) 1.11 mmol/L 1.12-1.27 L pH, Blood (test code = 04988-9) 7.41 Lab Interpretation (test code = Abnormal 73160-3) [facility] HospitalCALCIUM, [id number] 05:42:00 Test Item Value Reference Range Interpretation Comments CALCIUM IONIZED (BEAKER) (test 1.11 mmol/L 1.12-1.27 L code = 698) PH, BLOOD (BEAKER) (test code = 7.41 1810) COMPREHENSIVE METABOLIC [id number] 04:57:00 Test Item Value Reference Range Interpretation [...] S NOT APPLICABLE FOR DIALYSIS PATIEN TS. Avionics Mechanic ID - BSSpecimen moderately ictericHepatic function [id number] 04:53:00 Test Item Value Reference Range Interpretation Comments Protein, Total (test code 5.7 6.0- 8.3 gm/dL L = 2885-2) Albumin (test code = 3.4 g/dL 3.5-5 L 19914-2) Total Bilirubin (test 6.9 mg/dL 0.2-1.2 H code = 1974-2) Bilirubin, Direct (test 2.2 mg/dL 0.1-0.5 H code = 1967-7) Alkaline Phosphatase 58 U/L 40-150 (test code = 6768-6) AST (test code = 1920-8) 36 U/L 5-34 H ALT (test code = 1742-6) 13 U/L 6-55 VALENTE (test code = VALENTE) Avionics Mechanic ID - BSSpecimen moderately icteric Lab Interpretation (test Abnormal code = 86945-4) [facility] HospitalPhosphorus2020-07-01 04:53:00 Test Item Value Reference Range Interpretation Comments Phosphorus (test code = 3.2 mg/dL 2.3-4.7 2777-1) VALENTE (test code = VALENTE) Avionics Mechanic ID - BS Lab Interpretation (test Normal code = 46393-2) [facility] HospitalPHOSPHORUS2020-07-01 04:53:00 Test Item Value Reference Range Interpretation Comments PHOSPHORUS (BEAKER) (test code = 3.2 mg/dL 2.3-4.7 604) Avionics Mechanic ID - [id number] 04:53:00 Test Item Value Reference Range Interpretation Comments MAGNESIUM (BEAKER) (test code = 1.7 mg/dL 1.6-2.6 627) Avionics Mechanic ID - BSHEPATIC FUNCTION [id number] 04:53:00 Test Item Value Reference Range Interpretation [...] (test code = 13 U/L 6-55 347) Avionics Mechanic ID - BSSpecimen moderately ictericCBC W/PLT COUNT & AUTO [id number] 04:42:00 Test Item Value Reference Range Interpretation [...] PERCENT (BEAKER) (test code = 2801) PROTHROMBIN TIME/[id number] 04:36:00 Test Item Value Reference Range Interpretation [...] (test No organisms seen code = 1123) [facility] HospitalBODY FLUID CULTURE + GRAM [id number] 12:05:00 Test Item Value Reference Range Interpretation Comments CULTURE (BEAKER) (test No growth code = 1095) GRAM STAIN RESULT <1+ White blood cells (BEAKER) (test code = seen 1123) GRAM STAIN RESULT No organisms seen (BEAKER) (test code = 37597) Manual [id number] 07:35:00 Test Item Value Reference Range Interpretation [...] Poikilocytes (test code = 2+ moderate 966) [place] Cells (test code = 2+ moderate 474) Artifact (test code = Present 3432) Platelet Conc (test code Decreased = 3438) VALENTE (test code = VALENTE) Avionics Mechanic ID - 6000Operator ID - Maria Del Carmen Lilian comments: Slide comments: Lab Interpretation (test Abnormal code = 26745-8) [facility] W/PLT COUNT & AUTO [id number] 07:35:00 Test Item Value Reference Range Interpretation [...] CONCENTRATION Decreased (CELLAVISION)(BEAKER) (test code = 3438) Avionics Mechanic ID - 6000Operator ID - Maria Del Carmen Quintana comments: Slide comments:Basic Metabolic [id number] 06:24:00 Test Item Value Reference Range Interpretation Comments Sodium (test code = 140 meq/L 173-231 3680-2) Potassium (test code 3.4 meq/L 3.5-5.1 L = 2823-3) Chloride (test code = 105 meq/L 98-107 2075-0) CO2 (test code = 25 meq/L 22-29 2028-9) BUN (test code = 31 mg/dL 7-21 H 3094-0) Creatinine (test code 2.35 mg/dL 0.57-1.25 H = 2160-0) Glucose (test code = 108 mg/dL 70-105 H 2345-7) Calcium (test code = 8.7 mg/dL 8.4-10.2 89578-1) EGFR (test code = 21 mL/min/1.73 [place] [address]-4) NOT ACCURATE CREATININE CLEARANCE IN PREDICTING GLOMERULAR FILTRATION RATE . ESTIMATED GFR I S NOT APPLICABLE FOR DIALYSIS PATIENTS. VALENTE (test code = VALENTE) Avionics Mechanic ID - MITCH LSpecimen moderately icteric Lab Interpretation Abnormal (test code = 25154-3) [facility] METABOLIC [id number] 06:24:00 Test Item Value Reference Range Interpretation [...] S NOT APPLICABLE FOR DIALYSIS PATIEN TS. Avionics Mechanic ID - MITCH Jane moderately ictericHEPATIC FUNCTION [id number] 06:23:00 Test Item Value Reference Range Interpretation [...] (test code = 13 U/L 6-55 347) Avionics Mechanic ID - MITCH Jane moderately [id number] 06:22:00 Test Item Value Reference Range Interpretation Comments MAGNESIUM (BEAKER) (test code = 1.8 mg/dL 1.6-2.6 627) Avionics Mechanic ID - MITCH LPROTHROMBIN TIME/[id number] 04:22:00 Test Item Value Reference Range Interpretation [...] = No growth in 5 days 6463-4) [facility] HospitalBLOOD [id number] 23:00:00 Test Item Value Reference Range Interpretation Comments CULTURE (BEAKER) (test No growth in 5 days code = 1095) BLOOD [id number] 23:00:00 Test Item Value Reference Range Interpretation Comments CULTURE (BEAKER) (test No growth in 5 days code = 1095) DLCO (single breath diffusion)2020-01-24 10:41:00Epifanio Giles, MEDICAL CLAIMS MANAGER, HEALTH CARE COACH 01/24/2020 10:52 [facility] PFT CHARTING REPORT Infection Control/Hand Hygiene procedures followed throughout the encounter with patient: YesPatient Identification Method: Patient name verified on armband, and Medical record on armband, Is the order complete?: Yes Account ID#: [id number] Name: Cici Calderon Birthdate: 1955 Age: 64 [...] and patient released from the lab without adverseoutcome.[facility] HospitalPulmonary Funct Lab [id number] 10:41:00Epifanio Giles RRT, HEALTH CARE COACH 01/24/2020 10:52 [facility] PFT CHARTING REPORT Infection Control/Hand Hygiene procedures followed throughout the encounter with patient: YesPatient Identification Method: Patient name verified on armband, and Medical record on armband, Is the order complete?: Yes Account ID#: [id number] Name: Cici Calderon Birthdate: 1955 Age: 64 [...] and patient released from the lab without adverseoutcome.[facility] HospitalLung [id number] 10:41:00Epifanio Giles RRT, HEALTH CARE COACH 01/24/2020 10:52 [facility] PFT CHARTING REPORT Infection Control/Hand Hyg iene procedures followed throughout the encounter with patient: YesPatient Identification Method: Patient name verified on armband, and Medical record on armband, Is the order complete?: Yes Account ID#: [id number] Name: Cici Calderon Birthdate: 1955 Age: 64 [...] and patient released from the lab without adverseoutcome.[facility]6 MINUTE WALK(FOR LUNG TRANSPLANT ONLY)2020-01-24 10:20:00Janina Meehan RRT, HEALTH CARE COACH 01/24/2020 2:39 [facility] PFT CHARTING REPORT Infection Control/Hand Hygiene procedures followed throughout the encounter with patient: YesPatient Identification Method: Patient name verified on armband, and Medical record on armband, Is the order complete?: Account ID#: [id number] Name: Cici Calderon Birthdate: 1 09/08/1954 Age: [...] patient released from the lab without adverse outcome.[facility] HospitalU/S, [id number] 09:43:00 Referring: Dr. Rowdy Christie to be ordered:->Body Fluid Culture (w/Gram Stain, C\\T\\S)Labs marko ordered:->Cell CountReason for exam:->Acute Kidney Injury - rule out SBP - can remove volume of up to 4-5 L (given ANDERS)Should this be performed at the bedside?->YesFINAL REPORT Ultrasound guided paracentesis Clinical History: Ascites. Sedation: None. Professor Of Industrial Technology: Christine Ward PA-C Supervising Physician: Natan Chisholm MD Tower Attendant: None. Estimated Blood Loss: < 1 mL. [...] anesthesia was achieved with lidocaine, a 5 Venezuelan one-step catheter was advanced into theperitoneal cavity under ultrasound guidance. After completion of drainage, the catheter was removed.There was no evidence of complication. Impression:Successful ultrasound guided paracentesis. Signed:Natan Chisholm Verified Date/Time: 01/24/2020 09:43:05 Reading Location: [address] Ultrasound Reading Room US [id number] 09:43:00Interface, External Ris In - 01/24/2020 9:45 AM CDTFINAL REPORT Ultrasound guided paracentesis Clinical History: Ascites. Sedation: None. Professor Of Industrial Technology: Christine Ward PA-C Supervising Physician: Natan Chisholm MD Tower Attendant: None. Estimated Blood Loss: < 1 mL. [...] anesthesia was achieved with lidocaine, a 5 Venezuelan one-step catheter was advanced into the peritoneal cavity under ultrasound guidance. After completion of drainage, the catheter was removed. There was no evidence of complication. Impression:Successful ultrasound guided paracentesis. Signed: Natan Chisholm Verified Date/Time: 12/27 09:43:05 Reading Location: [place] [id number] [facility]trasound [facility] [id number] 06:18:00 Test Item Value Reference Range Interpretation Comments SODIUM (BEAKER) 139 meq/L 136-145 (test code = 381) POTASSIUM (BEAKER) 3.4 meq/L 3.5-5.1 L (test code = 379) CHLORIDE (BEAKER) 106 meq/L 98-107 (test code = 382) CO2 (BEAKER) (test 25 meq/L 22-29 code = 355) BLOOD UREA NITROGEN 35 [...] S NOT APPLICABLE FOR DIALYSIS PATIEN TS. Avionics Mechanic ID - MITCH LSpecimen moderately [id number] 05:38:00 Test Item Value Reference Range Interpretation Comments PHOSPHORUS (BEAKER) (test code = 2.8 mg/dL 2.3-4.7 604) Avionics Mechanic ID - MITCH [id number] 05:38:00 Test Item Value Reference Range Interpretation Comments MAGNESIUM (BEAKER) (test code = 1.8 mg/dL 1.6-2.6 627) Avionics Mechanic ID - MITCH LHEPATIC FUNCTION [id number] 05:38:00 Test Item Value Reference Range Interpretation [...] (test code = 11 U/L 6-55 347) Avionics Mechanic ID - MITCH Goetzimeyahaira moderately ictericCALCIUM, [id number] 04:56:00 Test Item Value Reference Range Interpretation Comments CALCIUM IONIZED (BEAKER) (test 1.09 mmol/L 1.12-1.27 L code = 698) PH, BLOOD (BEAKER) (test code = 7.43 1810) PROTHROMBIN [id number] 04:48:00 Test Item Value Reference Range Interpretation [...] mechanical heart valves.CBC W/PLT COUNT & AUTO [id number] 04:36:00 Test Item Value Reference Range Interpretation [...] (BEAKER) (test code = 2801) Prepare Leuko-Red [id number] 23:54:00 Test Item Value Reference Range Interpretation Comments CROSSMATCH (test code = 2264) COMPATIBLE Unit ABO (test code = A Pos 3970396) UNIT NUMBER (test code = [id number] 934-0) Status (test code = 4462878) TX_TIMEINCHART Blood Bank Product (test code RED BLOOD CELLS = 2263) PRODUCT CODE (test code = H7063I71 933-2) [facility] HospitalRubeola antibody [id number] 18:06:00 Test Item Value Reference Range Interpretation Comments Rubeola Ab, 235 AU/mL REFERENCE RANGE : Igg (test code <13.50 AU/mL = 45347-3) AU/mL Interpretation ==== <13.50 Negative 13.50-16.49 Equivocal >16.49 Positive A posi tive result indicate s that the patient hasantibody to measles virus. It does notdifferentiat e between an acti ve or past infection. The clinical diagno sis must be interpr eted inconjunction w ith clinical signs and symptoms ofthe patient. For additional information, pl ease refer tohttp://educat ion.[facility] stDiagnostics.c om/faq/ TUL640(This rosa k is being provided for informational/e ducatio nal purposes on ly.) VALENTE (test code Performing Lab = VALENTE) *[facility] [employer] [address] [place] [address] Sudhakar Hargrove MD [facility] HospitalMitochondria M2 Antibody (IgG)2020-01-23 13:50:00 Test Item Value Reference Range Interpretation Comments Mitochondria M2 Ab <20.0 See Note: U Reference (test code = Range:NEGATIVE: ) < OR = 20.0EQUIVOCAL: 20.1-24.9POSITI V E: > OR = 25.0 VALENTE (test code = Performing Lab VALENTE) [facility] [employer] [facility] [address] [place] [address] Mark Encarnacion MD, PhD, AMINA [facility] HospitalMumps antibody, [id number] 13:38:00 Test Item Value Reference Range Interpretation [...] (test Performing Lab code = VALENTE) *[facility] [address] [place] [address] Sudhakar Hargrove MD [facility] W/PLT COUNT & AUTO [id number] 12:26:00 Test Item Value Reference Range Interpretation [...] CONCENTRATION Decreased (CELLAVISION)(BEAKER) (test code = 3438) Avionics Mechanic ID - 6000Operator ID - Charo Jordan comments: Slide comments: BASIC METABOLIC [id number] 07:18:00 Test Item Value Reference Range Interpretation [...] S NOT APPLICABLE FOR DIALYSIS PATIEN TS. Avionics Mechanic ID - MITCH LSpecimen moderately [id number] 07:17:00 Test Item Value Reference Range Interpretation Comments MAGNESIUM (BEAKER) 1.6 mg/dL 1.6-2.6 Specimen slightly (test code = 627) hemolyzed Avionics Mechanic ID - MITCH [id number] 07:17:00 Test Item Value Reference Range Interpretation Comments PHOSPHORUS (BEAKER) 2.4 mg/dL 2.3-4.7 Specimen slightly (test code = 604) hemolyzed Avionics Mechanic ID - MITCH LHEPATIC FUNCTION [id number] 07:17:00 Test Item Value Reference Range Interpretation [...] Specimen slightly (test code = 347) hemolyzed Avionics Mechanic ID - MITCH LSpecimen moderately ictericB-type Natriuretic Factor (BNP) 2020-01-23 06:55:00 Test Item Value Reference Range Interpretation Comments BNP (test code = 36563-3) 2179 pg/mL 0-100 H VALENTE (test code = VALENTE) Avionics Mechanic ID Mercedes MEYER L Lab Interpretation (test Abnormal code = 77978-4) [facility] HospitalB-TYPE NATRIURETIC FACTOR (BNP)2020-01-23 06:55:00 Test Item Value Reference Range Interpretation Comments B-TYPE NATRIURETIC PEPTIDE 2179 pg/mL 0-100 H (BEAKER) (test code = 700) Avionics Mechanic ID Mercedes MEYER LCALCIUM, [id number] 06:31:00 Test Item Value Reference Range Interpretation Comments CALCIUM IONIZED (BEAKER) (test 1.07 mmol/L 1.12-1.27 L code = 698) PH, BLOOD (BEAKER) (test code = 7.45 1810) PROTHROMBIN TIME/[id number] 06:00:00 Test Item Value Reference Range Interpretation [...] for patients wiht mechanical heart valves.Prepare Leuko-Red [id number] 23:54:00 Test Item Value Reference Range Interpretation Comments Unit ABO (test code = 0112581) O Pos UNIT NUMBER (test code = [id number] 934-0) Status (test code = 6074392) TX_TIMEINCHART Blood Bank Product (test code PLATELETS = 2263) PRODUCT CODE (test code = C6146C03 933-2) [facility] W/PLT COUNT & AUTO [id number] 10:35:00 Test Item Value Reference Range Interpretation [...] CONCENTRATION Decreased (CELLAVISION)(BEAKER) (test code = 3438) Avionics Mechanic ID - 6000Operator ID - Lizett OverholtUser comments: Slide comments: [id number] 10:05:00 Test Item Value Reference Range Interpretation Comments Cortisol, Total (test code 1.6 ug/dL 3.7-19.4 L = 2755) VALENTE (test code = VALENTE) Avionics Mechanic ID - PIAYA L Lab Interpretation (test Abnormal code = 26730-8) [facility] HospitalCORTISOL2020-06-27 10:05:00 Test Item Value Reference Range Interpretation Comments CORTISOL, TOTAL (BEAKER) (test code 1.6 ug/dL 3.7-19.4 L = 2755) Avionics Mechanic ID - MITCH LDirect AHG (KRISTI)/Direct [id number] 07:49:00 Test Item Value Reference Range Interpretation Comments Direct AHG-IGG (test code = 1006-6) NEGATIVE Direct AHG-C3B, C3D (test code = NEGATVIE 1003-3) [facility] HospitalABORH, [id number] 07:37:00 Test Item Value Reference Range Interpretation Comments ABO Grouping (test code = 2588) A Rh Factor (test code = 2589) POS [facility] HospitalCALCIUM, [id number] 06:31:00 Test Item Value Reference Range Interpretation Comments CALCIUM IONIZED (BEAKER) (test 1.10 mmol/L 1.12-1.27 L code = 698) PH, BLOOD (BEAKER) (test code = 7.44 1810) BASIC METABOLIC [id number] 06:20:00 Test Item Value Reference Range Interpretation [...] S NOT APPLICABLE FOR DIALYSIS PATIEN TS. Avionics Mechanic ID - MITCH LSpecimen moderately [id number] 06:12:00 Test Item Value Reference Range Interpretation Comments MAGNESIUM (BEAKER) (test code = 1.7 mg/dL 1.6-2.6 627) Avionics Mechanic ID - MITCH LHEPATIC FUNCTION [id number] 06:12:00 Test Item Value Reference Range Interpretation [...] (test code = 10 U/L 6-55 347) Avionics Mechanic ID Mercedes RUTHERFORDpecimen moderately ictericPROTHROMBIN TIME/[id number] 05:48:00 Test Item Value Reference Range Interpretation [...] is2.5-3.5 for patients wiht mechanical heart valves.Renin, [id number] 22:50:00 Test Item Value Reference Range Interpretation Comments PRA,LC/MS/MS 1.51 ng/mL/h 0.25-5.82 This test was developed (test code = and its analyti steven 5182094) performance characteristics havebeen determined by [employer] [facility].It h as not been cleared or approved by FDA. This as say has been validatedp ursuant to the CLIA reg ulations and is used for clinical purposes. VALENTE (test Performing Lab code = VALENTE) [facility] [facility] [address] [place] [address] Mark Encarnacion MD, PhD, AMINA [facility] HospitalBody fluid cell count with [id number] 18:33:00 Test Item Value Reference Range Interpretation Comments Appearance (test code = 9335-1) Hazy Clear A Color (test code = 6824-7) Cele Colorless, Straw A RBCs (test code = 91022-9) 4000 <=1 /cu mm H Adjusted WBC Count (test code = 86 <=5 /cu mm H 52847-7) Lining Cells (test code = 1 <=1 /cu mm 41329-2) % Segs (test code = 35356-0) 7 % % Lymphs (test code = 97219-5) 83 % % Monos (test code = 01889-2) 10 % % Eos (test code = 82280-1) 0 % % Baso (test code = 91941-1) 0 % Container Body Fluid (test code Sterile Vial = 2873) Lab Interpretation (test code = Abnormal 32289-7) [facility] HospitalBODY FLUID CELL COUNT WITH [id number] 18:33:00 Test Item Value Reference Range Interpretation [...] = 2873) Peripheral Blood Smear - Hold [id number] 15:19:00 Test Item Value Reference Range Interpretation Comments Peripheral Smear Save (test code = saved 1815) [facility] HospitalPERIPHERAL BLOOD SMEAR - HOLD [id number] 15:19:00 Test Item Value Reference Range Interpretation Comments PERIPHERAL SMEAR SAVE (BEAKER) (test saved code = 1815) [id number] 14:41:00 Test Item Value Reference Interpretation Comments Range Aldosterone (test 22 ng/dL Adult Ref erence code = 0438902) Ranges for Aldosterone: Upright 8:00-10 :00 am < or = 28 ng/ dL Upright 4:00-6: 00 pm < or = 21 ng/ dL Supine 8:00-10 :00 am 3-16 ng/dL Th is test was developed a nd its analytical perf ormance characteristics havebeen determ ined by [facility] .It has not been cleare d or approved by FDA . This assay has been validatedpursua nt to the CLIA regula tions and is used for clinical purpos es. VALENTE (test code = Performing Lab VALENTE) [email or web address] [address] [place] [address] Mark Encarnacion MD, PhD, AMINA [facility] [id number] 13:05:00 Test Item Value Reference Range Interpretation Comments T-Spot TB (test code = 01681-0) Negative Neg Ctrl Spot Count (test code = 0 79175-7) Panel A Spot (test code = 09498-9) 0 Panel B Spot (test code = 51171-8) [address] (test code = 0 60233-2) Scan Result (test code = 5557016) [facility] [id number] 13:05:00 Test Item Value Reference Range Interpretation Comments T-SPOT TB (BEAKER) (test code = Negative 1683) NEG CONTROL SPOT COUNT (BEAKER) 0 (test code = 1684) PANEL A SPOT (BEAKER) (test code = 0 1685) PANEL B SPOT (BEAKER) (test code = 0 1686) POS CONTROL SPOT CT (BEAKER) (test 0 code = 1687) SCAN RESULT (test code = 2065691) BLOOD [id number] 13:00:00 Test Item Value Reference Range Interpretation Comments CULTURE (BEAKER) (test No growth in 5 days code = 1095) BLOOD [id number] 12:00:00 Test Item Value Reference Range Interpretation Comments CULTURE (BEAKER) (test No growth in 5 days code = 1095) [id number] 10:25:00 Test Item Value Reference Range Interpretation Comments CORTISOL, TOTAL (BEAKER) (test code 5.1 ug/dL 3.7-19.4 = 2755) [employer] ID - JUL CCOMPREHENSIVE METABOLIC [id number] 10:23:00 Test Item Value Reference Range Interpretation [...] S NOT APPLICABLE FOR DIALYSIS PATIEN TS. Avionics Mechanic ID - JUL CSpecimen moderately ictericVaricella zoster antibody, IgG 2020-01-21 10:15:00 Test Item Value Reference Range Interpretation Comments Varicella IgG (test 3.6 code = 27543-6) VALENTE (test code = VALENTE) VARICELLA ZOSTER RESULT INTERPRETATIONS: <=0.8 Al Nonreactive: Presumed non-immune to VZV 0.9-1.0 Al Equivocal >=1.1 Al Reactive: Presumed immune to VZV [facility] Hospital[facility]ella antibody, [id number] 10:15:00 Test Item Value Reference Range Interpretation Comments Rubella IgG Quant (test 127.0 <8.0 IU/mL H code = 8014-3) VALENTE (test code = VALENTE) Rubella IgG Result Interpretation: </= 7.0 IU/mL Negative - Presumed non-immune 8.0 - 9.9 IU/mL Equivocal >= 10.0 IU/mL Positive - Presumed immune Lab Interpretation (test Abnormal code = 83599-6) [facility] HospitalRUBELLA ANTIBODY, [id number] 10:15:00 Test Item Value Reference Range Interpretation Comments RUBELLA IGG QUANTITATION (BEAKER) 127.0 IU/mL <8.0 H (test code = 572) Rubella IgG Result Interpretation: </= 7.0 IU/mL Negative - Presumed non- immune 8.0 - 9.9 IU/mL Equivocal >= 10.0 IU/mL Positive - Presumed immune VARICELLA ZOSTER ANTIBODY, [id number] 10:15:00 Test Item Value Reference Range Interpretation Comments VARICELLA ZOSTER IGG (AL) (BEAKER) 3.6 (test code = 3197) VARICELLA ZOSTER RESULT INTERPRETATIONS: <=0.8 Al Nonreactive: Presumed non-immune to VZV 0.9-1.0 Al Equivocal >=1.1 Al Reactive: Presumed immune to VZVReticulocyte [id number] 10:12:00 Test Item Value Reference Range Interpretation Comments % Retic (test code = 5.3 % 0.5-1.7 H 37980-8) VALENTE (test code = VALENTE) [employer]ionics Mechanic ID - [id number] Lab Interpretation (test Abnormal code = 25054-9) [facility] HospitalRETICULOCYTE [id number] 10:12:00 Test Item Value Reference Range Interpretation Comments RETICULOCYTE COUNT PCT (BEAKER) (test 5.3 % 0.5-1.7 H code = 575) Avionics Mechanic ID - [id number] 10:06:00 Test Item Value Reference Range Interpretation Comments PHOSPHORUS (BEAKER) (test code = 3.1 mg/dL 2.3-4.7 604) Avionics Mechanic ID - TUAN [id number] 10:06:00 Test Item Value Reference Range Interpretation Comments MAGNESIUM (BEAKER) (test code = 1.7 mg/dL 1.6-2.6 627) Avionics Mechanic ID - TUAN CHEPATIC FUNCTION [id number] 10:06:00 Test Item Value Reference Range Interpretation [...] (test code = 12 U/L 6-55 347) Avionics Mechanic ID - TUAN CSpecimen moderately ictericRAD, CHEST, [...] Walker Verified Date/Time: 01/21/2020 10:03:32 Reading Location: [facility] Radiology Reading Room XR chest 1 view portable / [id number] 10:03:00 Interface, External Ris In - 01/21/2020 [...] interval worseningof interstitial edema Signed: Karen Walker MDReport Verified Date/Time: 01/21/2020 10:03:32 Reading Location[facility]O [id number] 09:59:00 Test Item Value Reference Range Interpretation [...] PERCENT (BEAKER) (test code = 2801) PROTHROMBIN [id number] 09:53:00 Test Item Value Reference Range Interpretation [...] MDReport Verified Date/Time: 01/21/2020 07:51:30 Reading Location: [facility] Diagnostic Imaging Reading Room - [place] [address] MR abdomen without IV contrast 2020-01-21 07:51:00Interface, [...] MDReport Verified Date/Time: 01/21/2020 07:51:30 Reading Location: [facility] Diagnostic Imaging Reading Room - [place] [address] [facility] Type and screen, [id number] 22:06:00 Test Item Value Reference Range Interpretation Comments ABO/RH AUTOMATED (BEAKER) (test A POSITIVE code = 2260) Ab Scrn (test code = 890-4) NEGATIVE [facility], [facility]ST, 1 VIEW, NON [id number] 21:16:00 Referring: Dr. Rowdy Zhang for exam:->JVD [...] Stable contours. Additional findings: None. Signed: JR Terry, Alonso REILLYeport Verified Date/Time: 01/20/2020 21:16:28 Reading Location: [address] Transitional Reading Room Cryptococcal [id number] 11:36:00 Test Item Value Reference Range Interpretation Comments Cryptococcal Antigen, Serum Negative Negative, Interference (test code = 35299-1) Lab Interpretation (test code Normal = 26076-5) [facility] HospitalCRYPTOCOCCAL [id number] 11:36:00 Test Item Value Reference Range Interpretation Comments CRYPTOCOCCAL ANTIGEN, SERUM Negative Negative, Interference (BEAKER) (test code = 1828) CBC W/PLT COUNT & AUTO [id number] 09:56:00 Test Item Value Reference Range Interpretation [...] CONCENTRATION Decreased (CELLAVISION)(BEAKER) (test code = 3438) Avionics Mechanic ID - [id number] ID - Lizett OverholtUser comments: Slide comments: COMPREHENSIVE METABOLIC [id number] 05:46:00 Test Item Value Reference Range Interpretation [...] S NOT APPLICABLE FOR DIALYSIS PATIEN TS. Avionics Mechanic ID - MITCH LSpecimen moderately [id number] 05:37:00 Test Item Value Reference Range Interpretation Comments PHOSPHORUS (BEAKER) (test code = 2.8 mg/dL 2.3-4.7 604) Avionics Mechanic ID - MITCH [id number] 05:37:00 Test Item Value Reference Range Interpretation Comments MAGNESIUM (BEAKER) (test code = 1.9 mg/dL 1.6-2.6 627) Avionics Mechanic ID - MITCH LHEPATIC FUNCTION [id number] 05:37:00 Test Item Value Reference Range Interpretation [...] (test code = 9 U/L 6-55 347) Avionics Mechanic ID - MITCH LSpecimen moderately ictericPROTHROMBIN TIME/[id number] 04:53:00 Test Item Value Reference Range Interpretation [...] is2.5-3.5 for patients wiht mechanical heart valves.CALCIUM, [id number] 04:45:00 Test Item Value Reference Range Interpretation Comments CALCIUM IONIZED (BEAKER) (test 1.14 mmol/L 1.12-1.27 code = 698) PH, BLOOD (BEAKER) (test code = 7.36 1810) Sodium, random [id number] 00:37:00 Test Item Value Reference Range Interpretation Comments Sodium Urine (test <20 meq/L code = 2955-3) VALENTE (test code = Reference Range: No VALENTE) NormalsOperator ID - MITCH [place] [facility] CenterODIUM, RANDOM [id number] 00:37:00 Test Item Value Reference Range Interpretation Comments SODIUM URINE (BEAKER) (test code = < meq/L 243) Reference Range: No NormalsOperator ID - MITCH LUrinalysis w/Microscopic 2020-01-20 00:30:00 Test Item Value Reference Range Interpretation Comments Color, UA (test code = Yellow 5778-6) Clarity, UA (test code = Hazy 5767-9) Specific [place], UA (test 1.017 1.001-1.035 code = 5811-5) pH, UA (test code = 5.5 5.0-8.0 5803-2) Protein, UA (test code = 20 mg/dL Negative A 50730-8) Glucose, UA (test code = Negative Negative 365) Ketones, UA (test code = Negative Negative 2514-8) Bilirubin, UA (test code = Negative Negative 25164-3) Blood, UA (test code = Small Negative A 97288-8) Nitrite, UA (test code = Negative Negative 5802-4) Leukocytes, UA (test code Trace Negative A = 5799-2) Urobilinogen, UA (test 0.2 mg/dL 0.2-1 code = 72532-4) RBC, UA (test code = 1 /HPF 12180-1) WBC, UA (test code = 3 /HPF 5821-4) Bacteria, UA (test code = Rare 96697-9) Squam Epithel, UA (test 3 /HPF code = 21787-7) Hyaline Casts, UA (test 3 /LPF code = 53815-0) Specimen Source (test code = 2795) VALENTE (test code = VALENTE) Avionics Mechanic ID - [auto]Avionics Mechanic ID - tech Lab Interpretation (test Abnormal code = 03140-3) [facility] HospitalUrinalysis w/Microscopic + Reflex to Culture 2020-01-20 00:30:00 Test Item Value Reference Range Interpretation Comments Color, UA (test code = 5778-6) Yellow Clarity, UA (test code = 5767-9) Hazy Specific [place], UA (test code = 1.017 1.001-1.035 5811-5) pH, UA (test code = 5803-2) 5.5 5.0-8.0 Protein, UA (test code = 68913-0) 20 mg/dL Negative A Glucose, UA (test code = 365) Negative Negative Ketones, UA (test code = 2514-8) Negative Negative Bilirubin, UA (test code = 44980-3) Negative Negative Blood, UA (test code = 42214-6) Small Negative A Nitrite, UA (test code = 5802-4) Negative Negative Leukocytes, UA (test code = 5799-2) Trace Negative A Urobilinogen, UA (test code = 0.2 mg/dL 0.2-1 49432-9) RBC, UA (test code = 12401-7) 1 /HPF WBC, UA (test code = 5821-4) 3 /HPF Bacteria, UA (test code = 55749-3) Rare Squam Epithel, UA (test code = 3 /HPF 22696-7) Hyaline Casts, UA (test code = 3 /LPF 98909-8) Specimen Source (test code = 2795) Lab Interpretation (test code = Abnormal 87835-7) [facility]INALYSIS W/ REFLEX URINE [id number] 00:30:00 Test Item Value Reference Range Interpretation [...] SOURCE(BEAKER) (test code = 2795) URINALYSIS W/ [id number] 00:30:00 Test Item Value Reference Range Interpretation [...] /LPF 514) SOURCE(BEAKER) (test code = 2795) Avionics Mechanic ID - [auto]Avionics Mechanic ID - techActin (Smooth Muscle) Antibody, IgG [...] of patients withautoimmune hepatitis (AIH) type 1, emiizloidinus32 % of patients with autoimmune cholangitis,lis sherine mately 30% of patients with primary biliarycirrhosi s, and approximate ly 2% of healthy people.High beatriz ues are closely correlated with AIH type 1. VALENTE (test code = Performing Lab VALENTE) [email or web address] [address] [address] Mark Encarnacion MD, PhD, AMINA Lab Interpretation Abnormal (test code = 65261-7) [facility] HospitalZinc2020-06-24 20:06:00 Test Item Value Reference Interpretation Comments Range Zinc (test code = 39 60- 130 mcg/dL L This [facility] was ) developed and i ts analytical performance characteristics have been determined by [employer] . It has not been cleared or appr jean-claude by the[facility]. This assay has been validated pursu ant to the CLIA regulations and is used for clinic al purposes. VALENTE (test code = Performing Lab VALENTE) *BEATRIZ [email or web address], [address] [place] [id number] Jorje Jauregui MD, PhD Lab Interpretation Abnormal (test code = 93852-1) [facility] HospitalTissue [id number] 16:12:00 Test Item Value Reference Range Interpretation Comments Case Report (test code Surgical Pathology = 104) Report Case: [id number] Authorizing Provider: Sylvie George MD Collected: 01/17/2020 08:15 AM Ordering Location: [address] Received: 01/17/2020 01:50 PM Service Pathologist: Humaira Mendez MD Specimen: Duodenum, biopsy ADDENDUM (test code = z3lohLJyUSVgjUOcIqCcOA 3381) XgKFAzu7ejSMMbkRNlLuHt MzNcZnRuYmpcdWMxXGRlZm Ssw3ens074kKHih9pqWFSy XfU5uEVdGMKehIYkQ826OI DuXWfys6eit3LlKDZmpJCz f9Z2VHVVthrpdPy0nErpC8 4jz5H1TdteG9jzLDYcFEJs U8CnYT5jYRBgZim2KRV1YF F7ZWKmYYQjE7PeKI0dALQi sKHqAZk4a1zgjPzkHQGtMW Y9e2zzDJkuqyQvAE0nxs9z pMg1t0okysTjOUSuKAXfdC RICEMkA4NsqFelXt1oyUl7 oPszStwkCXT6Ilo3ES4bwl 17dxx4jKfkDBKmlpqdZcZ4 BRchSNVnregoEOt3CXtxSI SqwCZ8QEJseUMhV9LcIDZh US5yazu1DCV1ZIniCETnCa K3YMEhiSYiTRYhbTyfOUoq s806VWM7HvOkVR1cE4Fwt8 G5nU3lfGYjUVRbbXSkWeOd UGDqkc4usXVdUQmzc6ObUV Y4irK1pIQxsGDcZBUfBO19 Brose3KnUptbJEB2XLIjyf Rjn4Qdh2wpSuTwdhYiK5aq I7ReKEQtMXCfQIGzZaZorz Hvo0Dpj3XfmGKdqCw4k2xq BGMgBAWofKjlh8nbYRL5UC DnJ2N0uCIyi0tyBAceVQXu tLW0bsP1RWUfyJYrV2MhxR 3lYSGcXQ2lvpf5k4ndAGG1 WNpfDHXjPdZ6ciV9YHFcpS YrRCAkyStaOFsbd470NLQ7 UjCbJKIsn3YuL2SgvOldV3 4ebPecE16dJARfgLmrjA1s nTkczD7tIsDyEnAyJZwtLE JkXHBsYWluXGYxXGZzMjBc bGFuZzEwMzNcaGljaFxmMV toGsNzCHQcNQanO3zfSdPj MoQrJROKQZjHFFWMDO6KLA 1FNUlCGTcLG5FPUAYRNaMV RVBPUlQgVEhFIEZJTkRJTk dTIElOIFRIRSBERUVQRVIg IZEJREhBFL1SYTSWSGGNES 9YU2coHI1WDCpWTsWzSMcK VMTDLoMNDRQMANsUB6WLAm pccGFyXHFsXHBsYWluXGYw TLHhMjJeqPxfdR4zCeMfIb DiEPnuEQ7pFHNyW8rivEUf OYFrKZQaA0mqMtEjeA1smC xmMVxmczIwXHBhciAgRFVP ITAFOF9yWWBROK0NL04IND MgQklPUFNZOlxwYXIgICAt QFAGLBVYKRQnOzGHE3FGUz QGNaKNCCTgPSMSFL5YLKFE X3YEGQWzIFGWT5eQL1YSFb NhV2PbLP5CARHJXCWFK1HA Aw0OUXSONXgpAAGkUCJxFT 9HARUUWJUANaQKYN6FDIKD TElBQyBESVNFQVNFIFNFRU 5ccGFyICAgLSBOTyBHUkFO VUxPTUFTLCBEWVNQTEFTSU SdX4ToAZFKPGcGNN5DTKLH RUVOXHBhcn0= DIAGNOSIS (test code = y7rubJKsJIOjm9wxBXQqvU 3220) FuZzEwMzNcZnRuYmpcdWMx HTdmqwPdFQmzv2UlT0QrKz AwMFxhbnNpXGRlZmxhbmcx UFSqHMX4uoMrTKBqGXgoGB MkQQpoSg4igRDhfArsYyBv HRGys3zvlkEZvjjuwKk3e9 mbPWVwWxW7kEBkCSbpI6if yaFlxJFjTOWkBCc3gZ39HT GkgU2cuMIiCQgairDkAsO2 SEdrIPIqHjD5QZAowMGfKZ GuG8jqDTRvCJhgGTBrAUxj vWLpLYB6tSqkq0O7vLBcaU SwkZjiNyZhIbBsZXKAp2Hp ANn6xQycC8MbFAIiYjS7nI QgUGFyYWdyYXBoIEZvbnQ7 hZ90PZpzhhU3kMPus3Zsb8 3zc111aO2gjFHqFUS3AEBs CNDsyCYqGLDaTMI6YBLvbY UrH3i3OhWkzEUqF5Y6LaZp eHJmK8V9PqEeqKNcK2V6Ny GonQHpUDYvqAOoJs9bkYAf cFPbay1dpz68AZB6o3OmsL iqAJO4EGC7WkXsWu3dbMSh EVYrDM2tDnOzaDOtPKWdnf 47uEfzTFkmcwAvrH7nGsAc ICUdxVEfWTTpJB7mhMDgJY NxbB6ruzldRHTcXjCptkbe BTMsgRxexnYiAu5nbJwsSV B8KJsdJ0uxqU8eJuY9FXlg T5konH4kNMm1CAhinYU8BP ViyE1iQR1pkstym2kcNzCm NY3kayakb6mnVdGlZC4nyd g4s3euAjXwAK1oflgdh4qq NzIwXGhlYWRlcnkwXGZvb3 NpjiwrPFJjd3StS3MdiWcj R20gdFtvX46zVHXctNosyU 1yoKuafP4rUaRtBrEhVMkm bFxwbGFpblxmMVxmczIwXG kfakmyWSTqSXggL4ijYaUq RJOchDdgCAuau9ZbONXuDC KoXnLnYGCAVQYPGA5wWUJZ NI1EC94TFAUrFquUNDIPDh exLFTpEYFhO7ELJTKYIVOY XXnrWjNCE83BVdEAPW8MOS YYUYfGOLXIW5SJGF4OB97X JDSDDIVYOAySX8DILGAyAe 6VPM4TRYAhWPFQSULEENBV YHtzYTIulDOtAZDakg21VN W7XtPyu9I1WYD4XFTcTXZb m9ogBXBooVRfHdWrJhSbVj RuMqbzoBLoBSBdMnZpw2ok j198yUJbf1bzHSQpZfP7iO RySINvoZYlT825VXNnTPab r5pyb2MhRJVfiTTwj8D7OW LKffmydUr3tHegW13sw2F2 YpdwL1kbJZUaZVHfK5CxWO 7aNTLbSry8WOW3KUD8CDAo ADWuJ7LyDX4dXLHblOJpCS z9y1nkpVzvFHTeHDJ7u2pi THuzewCeLU2wlk4tvPw7p1 xjczEgRGVmYXVsdCBQYXJh P5DyvSrjBg8yeMn7xCrjZl nwPDY8Wss1ZL3puq65bha4 uNlgFBEicxyuQlJ5EUndXV TiruaxNBm3SOtkORCzxZP6 QGBqvBXmB7AsIIPhBU3ngt b0HEJ0HGuvWUPtAzQ9YDDj pLPzCLFmtPtfDNrld848VM E6KbEqHP8iK4Gbl0F2eT2c aXRcZGVmdGFiNzIwXGZvcm 1unPFqNAftc6OsIWQ3nqZ2 iSTapRKqPBDcHgM9ZWvmWJ 5hxa44ARLkUAH6yi5cnBNn rZoccfYjjEJzBUxxE5PtZQ Hfj319MJZuT3QyFRJwh2G5 kqQwWcKtPDSgeQL0xoO5EN UcIT7pkuztt2seCWrsEZbu FRSyavC6joE8LXYtbASwA6 SibX4bQRTiEA5flsgbz0hs RUS1JLjmGFBsAOE6RtEbCD Hbb9Ylvkq6UaZye2ZafYTt EVczI82bo004XYYbgcWxH7 xwbGFpblxwbGFpblxmMFxm ofD8XYAkZOqnfxjoPIPfOJ isO8erUdHfAUKiaPxoJJbt h5LiLSCgFXGoEjGmvPUoYP LhWog9OVGjnMFrMKClZzGf I5xnrxumNvNYKBWlu4hnN9 blyFHMnRPwV4TpDGapzwIf DSbvSLeqELI6VPV6Zl30Wl E0BBQdad70 CPT Code(s) (test code a4isbRZnGQZkdMDbRhVlBF = 3357) JbYAPep4gbDAKgbZLyTnCp MzNcZnRuYmpcdWMxXGRlZm Gao3hwm461yLSxl4qiXHGd VqU6aHRyEARhfMGaE539w8 qxj2muppBoxZR8SOMbYFI8 XCvaomOnsvG6OUxrpYRqXn J1CXbupwJuWFpdmuUxtwUq Jwp0FPHmF253XTZ9oSjvb3 ttNGQ3LWZoCQGgPeVuQf1l jRWgJ441VRDjLJALXQHfsS g1NMPtzbSwbhIbyNCAx327 Z117r7qgEYIfywFedMtWrj slr1jsI292MTMbnAOdbcHy UvFzOWBpyKUxlJG6UBRsXR 6luhiqIwYyJR5nsljdAqIk OV6jdlm4RtVuTM3iecomOj PnMYpaSPCvbgfrGQGja0Jy jstzUO2pP4Ali6N5sW9liM PlTPWdxCZdUpVlPBIcgf7d mLNyQFgln5XrGYO1pdE2vO WrrVAsJOYiFZ08Xmira5Ox WhluBOO7VQXbkgAgz5Hjg8 vdEzIyqeBbX7iuA7SwNINa FZQmCXVwAqLqumJjb5Zth2 MokOFuyMs3k4ibYWNhYWFd eZsuv6udWMB8PUDzL2L0lZ Pxg8qtZPjsHNBsbAH5rria EYebICIhaqO0ykidYErwNB PtjUT5mfnfWLotNUJdXpX5 dfaoDMvxQTFyJZR3PFrrv3 39UJQ6NJbzLwjoQIzbBCEr bmNvbnRccGduZGVjXHBsYW luXHBsYWluXGYwXGZzMjRc vYhadMaewG1bIxZyWyRyCF ujWM6aTLDhQ0fnrVEzDRXb RIZcE2qyNxMirE3khSfnHZ xafqMiVOp4DhD9MGKxys9= CLINICAL HISTORY (test w1sgpZIlJLIbhJCsFhXbRT code = 3356) MkOJAtj6aqPZItaSRuGkVt MzNcZnRuYmpcdWMxXGRlZm Erv5deg053yTDwl0jrAMRl TyQ9xUQrEVBcaDJpX290CT GmKZepi0ysq7HlABGrcFCv m1A9OPHGegpakLd5zTkxW2 8jl3R6WdniQ8tjSJHuEHcs BGKmHJscmXHmZOX8MQNoHO C0THipifBxriU1XRhfqAXj DwG2ZTn2s0jemKezBLJjYF J2w4yjHIzlehEcSA7ibm8n sLp7v3othmJwIJWbJBZddC CWQKAkG1NubSyhPj7lnUb9 iXvfQowaQFS2Qyk3KQ3hzu 78xdp2lUpyEQKkppgkYxO5 JUlbHYLkqatoQAm1LFllOS JnbDcyMFxtYXJncjcyMFxt YXJndDcyMFxtYXJnYjcyMF ovRMDdTZD5HHhub544BRP2 QFvwd2lnm5fsnTJnEzj3AR WmZwEdKnhrRYmte2Jqx2qq XOZuda0cTGG2qTGbrUzpi5 J4sHPfVZSlsONseuQnHCHf TmM9EFdgNW0nrn99BLUdOG K6yy2dwJWkxWvcrsAufZZp BZmqZ2GsTFPhm609MKNpI4 SpQWZbu5F8wtOvAiUsGJUs iNN1nkA3EWYqIDg8qXZisu P6qyHpkGCeL4hyxH18YxSy mEOcG9XdqB98KeQpzOEzS0 JamW33FxSqwZFxF1FngI95 PqNmrJKaZQDfuYNhGy1yoS PhrAAun2ObaUWrFAhyM22b i092TPPehiBeN6dseJWjfy xwbGFpblxmMFxmczIwXHFs XHBsYWluXGYwXGZzMjBccG cxfJ7oDhJzOlZaHHGZuu5o PCP6ozJ5PPPxiXUpIKPhOF 3qN92eqUubBxlibHI7BRUz HWPak8koph7gL27ozTBqpN ZkKCBbRAMwhfVafL4mqQ6d XRVxCWheh8MezkwsIW7dcM lhXHBhcn0= SPECIMEN SOURCE (test c7weoTHuYOPipWNjNnLpTT code = 3377) KdTRKsl4hmUVGiwTNwObMn MzNcZnRuYmpcdWMxXGRlZm Zyr0cth641hCOuo4peRQYq LsG9gKIfFJHvkWNjA028m3 dog9ktfdLrrXH7GSYrFBR0 BGdoogBphlL0RVvjeALbJj M4VUtirnXyDDsfgzFjzwFd Cip7NBEpL547ITZ7xQrrg7 hvNWT9LQHhWESlTdNxKx8v cJRtZ328IBDqTMWEENApoX f7RAPubeGefyVurLIZu067 P304s8lxIETwtbIlrQtKaa lxh2ufZ678EORyvXIbbgDz FuOyRTWtrYTiiQR4NEKsWA 2yhrjiVnXtIP4vaavfEgZd AD5fjxv1ZnCbOL4qstzfVt EhXTxfLYIxtfkwUAHls5Rx fhqhLY1zA8Xhx6V4mO3dpH HeYAIipENuLrOhPOEgbj4y hKKsYEeye6QyCKU9ouQ2kM IxzFCmRDHvII55Rkwgt4Tq SgecGRN7EAJthqKiz1Hed5 smLjUnnaNzI6grA0VmPXId KEVvOMKiXiXnujQez3Gvy3 WsgRWdtGw1z0bqOTGpDVJj mIlns0jmVLZ9HVAcZ6D2uL Mpd7diSRwvLBKcnYS4cbqo ZMpwOVCymiH9qxvbMIegYP MqbFA3rauvAAhnIPLtYyZ2 avlgKBwpHQAjNFG3VUupx7 07EEB7XSafGachSDqsTZKh bmNvbnRccGduZGVjXHBsYW luXHBsYWluXGYwXGZzMjRc gZibdKzsbH6aXuUwIeKmMK vrMS8fRGKgG5imvFMyBRDf LXCjA7gcFgBynQ6wdJiuWG ffneIfUZUsMMD5m6GqntJp OyWmmO0iq3tesZActJ== GROSS DESCRIPTION (test w8xdjMDxRBAkrDLoLkYhUP code = 3366) NnUPRxz1lxIWSudRAwTdQj MzNcZnRuYmpcdWMxXGRlZm Jzc1lvy215mORki9lbCFDk FqB6tICbVPNciRMbK630CP TyQUyag6cgp9ZyRXScrPOa a5K1MATNyhlrtYg6fInmH7 7gw4X5UzakM1quIGRpDVzx AMFjGBdgdRCkFFT7LDXcUA J5KPyiqtJewoR6ZDmmqYFv JeR4LCx9s5neaNpaEHOsZM V6l2iyBXoemwOkRM0eea6p mLz5o6tqllFqJDVnNESmsD SDZQLkW3QufRofSs9zhVo7 xKjpGakmLVR3Vib7AB7bvi 30jox9sLkrGOFejdueJuR6 HQwkTCXvxaowKAq4DUodYO JnbDcyMFxtYXJncjcyMFxt YXJndDcyMFxtYXJnYjcyMF hxPVVlMVX8HBsbm220MXX5 LXwmd4iqn5ypfGNjUkg6HZ HkFdLcWaovAQbwp6Dsz7qu UYRmqh9yQXR5fZXucUqvt6 X7lXKeBEEtvBIlcdBfMVIg KqQ7KUlgDB8icb56XPPxMG L3lf6ycKIzzFwykpXqjJOx EHwnV2SqJBVfn307ZGKhK0 HgKIQej0Y8kdYmTqFyEOOf bZD4lmM6IPVqCJf6rOAbnt F5mbWewGQxS6dfzQ47NyRf wXEoG3VypS20JrDggQUhN4 RbvB04GmBzgOMwN6DubC93 LmZioPTePDThoFQuDv6wxH UfgVKez8AghPPrLDnhG40e r482UMTymtEtI7vqkCIabo xwbGFpblxmMFxmczIwXHFs XHBsYWluXGYwXGZzMjBccG beuS6fXdPpZoOhSKYXCoAY fOKxn9YnQ4hbSJ7gsPYvix WjDSh3UHIrxV0cYt1viWVb iQ4pFUUzNRqqHILhPJAxTh ZopYRvPVjaGRM3iRUeUUTd UREkFBCzCX79L2AqquYgHB gpPWWdVRXagH4pQH89hONc ciBhbmQgIlxwbGFpblxmMF qszkBiJHN0v1ZzogGcMtDm imAlR40em0disQMth6Wtx5 9yEQNens1xuA1zPIyjzYJb ysobUXqqgrXbPQ15N70fJE kfH539FDMhKVlkeTCcjiby MFxmczIwICBwaWVjZXMgb2 NyjEeez8RyHF2zORE4wepj ZyAwLjMgeCAwLjIgeCAwLj QgE85wHCyrgBTalwlxECoc atMcNMDbWLUukWOilO8hcd GudoBejVNsxJB9HEZuQJ55 eFMijImhUi3znE19qQ3wIX QwgTBoOQKcb99jiX6wSAUn TVCkEUX6EIPuyYbmwN6bHa HpGdUzFUAWJT9oQFfYL1Mz XHBhcn0= MICROSCOPIC DESCRIPTION b9mthJTnMXRceHBlNeJuWJ (test code = 3371) ShTBIpz7blXWIucMFjExFe MzNcZnRuYmpcdWMxXGRlZm Sli9phd631eUAup1ogACEe NjN0fWCzRSEjhVQeS609d5 qnc9iqlxUrbSD5GDYrASD4 QCtfrcRxgvC7UZspcJFdFr S3XBncqcCkMDjuypLsxpXu Pzx5LXRnF034TRD4eCogc1 xlTAG3TUGoBUSxYzIyUw7o tJNtI240YMIaSGBRRJGhrM m1SQGmvoFnmaJlhWINp317 I920y5dnODDpfcFznInJvh zpq7zoK456UHKufTFghbYm KlMoTBTcjWWgrWB3VAVoUT 0kqgtkUuPzGC8xshejVyIz KA0xfgf4LiQnND9drbveDh EvKOopRELfgapiHBCnt9Ay dkfyJO1xF3Yia8I8iE3nuM BpKQSirJPaUqPdOCSuyb9x zOJoRTsno9UxLIK7gtC5fO LzuMYtMWWyLF21Tpfty7Ud AulsRPU6NYOtbqDtf9Bdt5 lrCxWgedLvH4riZ2UqIEQx NMRaCNHfZwPnfqKhl0Zhc6 GrqNMagSu5k8ziJZBvMPCt xPyzo8csYCH1OYQyX5Z2fG Knz1jwCQrbXFFewFI8depp CVikGGAdweZ4iqbfBYccWD JidXN4fgaoAZniNVNuTkX2 jtfrNAwkJFBnPLC8LMugg2 96EKS9YSzqHrjoKHwtUGQf bmNvbnRccGduZGVjXHBsYW luXHBsYWluXGYwXGZzMjRc qKafgVypwL8pGhZdSqFiXF ztJC0yBKNvM9gkhXAqSCKq OCSbL4ijBqXvyJ0iaPirAG qhgaEnYFMUOxWMJz7HEQjn YXJ9 [facility] [id number] 16:12:00Surgical Pathology Report Case: [id number] Authorizing Provider: Sylvie George MD Collected: 01/17/2020 08:15 AM Ordering Location: [address] Received: 01/17/2020 01:50 PM Service Pathologist: [...] FOVEOLAR METAPLASIA Signing Pathologist Direct Phone Line: [phone] signed by Humaira Mendez MD on 01/18/2020 at 3:50 [id number]: upper endoscopy, biopsy and colonoscopy Pre and postop diagnosis: anemiaA. Duodenum; biopsyA. The specimen is received in formalin labeled with the patient's name, accession number and "duodenum" and consists of one garduno-pink mucosal-covered pieces of tissue measuring 0.3 x 0.2 x 0.1cm. The specimen is submitted entirely following filtration in a cassette A1. HS/plPERFORMEDBlood gas, [id number] 16:03:00 Test Item Value Reference Range Interpretation Comments pH, Arterial (test code = 2744-1) 7.42 7.35-7.45 pCO2, Arterial (test code = 36 35- 45 mmHg 2018-8) pO2, Arterial (test code = 78 80- 90 mmHg L 2703-7) O2 Sat, Arterial (test code = 96.2 % 96-97 2708-6) HCO3, Arterial (test code = 23 mmol/L -29 1960-4) Base Excess, Arterial (test code -1.9 mmol/L -2-3 = 1925-7) Patient Temperature (test code = 36.1 C 8310-5) FIO2 (test code = 1819) 28 % Lab Interpretation (test code = Abnormal 50909-5) [facility], [id number] 16:03:00 Test Item Value Reference Range Interpretation [...] (BEAKER) (test code = 1819) 28.0 % [id number] 15:05:00 Test Item Value Reference Range Interpretation Comments Ceruloplasmin (test code 21 mg/dL 18-53 = 7213092) VALENTE (test code = VALENTE) Performing Lab *[facility] [address] [place], [address] [place] [address] Jorje Jauregui MD, PhD [facility] HospitalCarbohydrate antigen 19-9 (CA 19-9)2020-01-19 12:51:00 Test Item Value Reference Range Interpretation Comments CA 19-9 32 U/mL <34 This test was (test code = performed using the 97585-8) Siemens Chemiluminescen t method.Values o btained from different assay methods cannot be used interchangeably .CA19-9 levels, regardl ess of value, should n ot be interpreted as absoluteevidenc e of the presence or abs ence of disease. VALENTE (test Performing Lab code = VALENTE) [facility] [employer] [place] [address] [place] [address] Mark Encarnacion MD, PhD, AMINA [facility] HospitalPROTHROMBIN TIME/[id number] 11:28:00 Test Item Value Reference Range Interpretation [...] patients wiht mechanical heart valves.MM, U/S, BREAST, [id number] 09:52:00Referring: Dr. Rowdy Zhang for exam:->liver transplant [...] Correlation with mammography isrecommended. Signed: Jorge Brooks Verified Date/Time: 01/19/2020 09:52:28 Reading Location:[address] Mammo Reading Room US breast [id number] 09:52:00Interface, External Ris In - 01/19/2020 9:54 [...] with mammography is recommended. Signed: Jorge Brooks MDRkizzyort Verified Date/Time: 01/19/2020 09:52:28 Reading Location: [address] [facility]o [facility], WITHOUT [id number] 08:09:00Referring: Dr. Rowdy LopestAnesthesia:->NonePlease specify abdominal organs:->AdrenalFINAL REPORT TECHNIQUE: CT of [...] MDReport Verified Date/Time: 01/19/2020 08:09:04 Reading Location: [facility] Diagnostic Imaging Reading Room - [place] [address] [address] abdomen without IV contrast 2020-01-19 08:09:00Interface, [...] MDReport Verified Date/Time: 01/19/2020 08:09:04 Reading Location: [facility] Diagnostic Imaging Reading Room - [place] [address] Electronically signed by: JOHN CROCKER MD on 0 01/19/2020 08:09 [facility]CALCIUM, [id number] 07:59:00 Test Item Value Reference Range Interpretation Comments CALCIUM IONIZED (BEAKER) (test 1.10 mmol/L 1.12-1.27 L code = 698) PH, BLOOD (BEAKER) (test code = 7.33 1810) Treadmill tolerance(Non-Nuclear Treadmill)2020-01-19 07:03:57Interface, External Ris In - 01/19/2020 7:04 AM CDTProtocol Name Carrie Time In Exercise Phase00:01:00 Max. Systolic BP [...] by Shaq GARCIA MICHAEL([id number]) on 01/19/2020 7:03:55 [facility]COMPRE[facility]ENS[facility]OL[facility] PANEL 2020-01-19 05:21:00 Test Item [...] S NOT APPLICABLE FOR DIALYSIS PATIEN TS. Avionics Mechanic ID - LASpecimen moderately [id number] 05:04:00 Test Item Value Reference Range Interpretation Comments PHOSPHORUS (BEAKER) (test code = 3.3 mg/dL 2.3-4.7 604) Avionics Mechanic ID - DVACROURKJC2983-71-37 05:04:00 Test Item Value Reference Range Interpretation Comments MAGNESIUM (BEAKER) (test code = 2.0 mg/dL 1.6-2.6 627) Avionics Mechanic ID - LAHEPATIC FUNCTION [id number] 05:04:00 Test Item Value Reference Range Interpretation [...] (test code = 10 U/L 6-55 347) Avionics Mechanic ID - LASpecimen moderately ictericB-TYPE NATRIURETIC FACTOR (BNP) 2020-01-19 04:59:00 Test Item Value Reference Range Interpretation Comments B-TYPE NATRIURETIC PEPTIDE 2455 pg/mL 0-100 H (BEAKER) (test code = 700) Avionics Mechanic ID - EDWIN BCBC W/PLT COUNT & AUTO [id number] 04:46:00 Test Item Value Reference Range Interpretation [...] (BEAKER) (test code = 2801) U/S, RENAL, [id number] 01:26:00Referring: Dr. Rowdy Zhang for exam:->Re-examine L [...] Sneed MDReport Verified Date/Time: 01/19/202001:26:59 US renal [id number] 01:26:00Interface, External Ris In - 01/19/2020 1:29 [...] Maira Sneed MDReport Verified Date/Time: 01/19/2020 01:26:59 [facility] HospitalEosinophil [id number] 22:11:00 Test Item Value Reference Range Interpretation Comments Eosinophil Smear (test Rare EOS =less than No EOS seen A code = 76655-8) 5% WBCs seen are EOS Lab Interpretation (test Abnormal code = 31887-7) [facility] HospitalEOSINOPHIL SMEAR, [id number] 22:11:00 Test Item Value Reference Range Interpretation Comments EOSINOPHIL SMEAR, URINE Rare EOS =less than No EOS seen A (BEAKER) (test code = 5% WBCs seen are EOS 1851) SODIUM, RANDOM [id number] 22:04:00 Test Item Value Reference Range Interpretation Comments SODIUM URINE (BEAKER) (test code = < meq/L 243) Reference Range: No NormalsOperator ID - EDWIN BCreatinine, random urine 2020-01-18 22:02:00 Test Item Value Reference Range Interpretation Comments Creatinine, Ur 181.3 mg/dL (test code = 2161-8) VALENTE (test code = Reference Range: No VALENTE) NormalsOperator ID - EDWIN B [facility] HospitalProtein, random [id number] 22:02:00 Test Item Value Reference Range Interpretation Comments Protein, Urine (test code 45 mg/dL 0-14 H = 2888-6) VALENTE (test code = VALENTE) Avionics Mechanic ID - EDWIN B Lab Interpretation (test Abnormal code = 24220-6) [facility] HospitalCREATININE, RANDOM [id number] 22:02:00 Test Item Value Reference Range Interpretation Comments CREATININE URINE (BEAKER) (test 181.3 mg/dL code = 375) Reference Range: No NormalsOperator ID - EDWIN BPROTEIN, RANDOM [id number] 22:02:00 Test Item Value Reference Range Interpretation Comments PROTEIN, URINE (BEAKER) (test code = 45 mg/dL 0-14 H 1569) Avionics Mechanic ID - EDWIN BURINALYSIS W/ [id number] 22:02:00 Test Item Value Reference Range Interpretation [...] (test Urine, Sterile code = 2795) Collection Avionics Mechanic ID - [auto]Avionics Mechanic ID - techHepatitis B core antibody, [id number] 16:02:00 Test Item Value Reference Range Interpretation Comments Hep B Core Total Ab Nonreactive Nonreactive (test code = 92565-0) VALENTE (test code = VALENTE) Avionics Mechanic ID - CHARO F Lab Interpretation (test Normal code = 67479-3) [facility] HospitalHEPATITIS B CORE ANTIBODY, [id number] 16:02:00 Test Item Value Reference Range Interpretation Comments HEPATITIS B CORE TOTAL ANTIBODY Nonreactive Nonreactive (BEAKER) (test code = 497) Avionics Mechanic ID - CHARO FECG 12 [id number] 14:19:40Interface, External Ris In - 01/18/2020 2:19 PM CDTVentricular Rate 62 BPMAtrial Rate 62 BPMP-R Interval 138 msQRS Duration 86 msQ-T Interval 452 msQTC Calculation(Bazett) 458 msP [place] 59 degreesR [place] 32 degreesT [place] 56 degreesNormal sinus rhythmLow voltage QRSNonspecific ST quxnowrisgj93 DEC 2019 11:05Nonspecific T wave abnormality Nonspecific T wave abnormality, improved inQT has shortenedConfirmed by MD FARHAT, JESSIE ([id number]) on 01/18/2020 2:19:38 [facility] Cytomegalovirus antibody, [id number] 13:49:00 Test Item Value Reference Range Interpretation Comments CYTOMEGALOVIRUS, IGG Positive Negative, A (test code = 3429) Equivocal VALENTE (test code = VALENTE) CMV IgG Result Interpretation: </= 0.8 Al Negative 0.9-1.0 Al Equivocal >/=1.1 Al Positive Lab Interpretation (test Abnormal code = 66628-6) [facility] HospitalEBV-VCA antibody, [id number] 13:49:00 Test Item Value Reference Range Interpretation Comments GABRIEL CHING VIRAL Positive Negative, A CAPSID ANTIGEN IGG (test Equivocal code = 3415) VALENTE (test code = VALENTE) Gabriel Ching Viral Capsid Antigen IgG Result Interpretation: </= 0.8 Al Negative 0.9-1.0 Al Equivocal >/= 1.1 Al Positive Lab Interpretation (test Abnormal code = 11256-6) [facility] HospitalEBV-VCA antibody, [id number] 13:49:00 Test Item Value Reference Range Interpretation Comments GABRIEL CHING VIRAL Negative Negative, CAPSID ANTIGEN IGM (test Equivocal code = 3418) VALENTE (test code = VALENTE) Gabriel Ching Viral Capsid Antigen IgM Result Interpretation: </= 0.8 Al Negative 0.9-1.0 Al Equivocal >/= 1.1 Al Positive Lab Interpretation (test Normal code = 95419-4) [facility] HospitalCytomegalovirus antibody, [id number] 13:49:00 Test Item Value Reference Range Interpretation Comments CMV IGM (test code = Negative Negative, 3437) Equivocal VALENTE (test code = VALENTE) CMV IgM Result Interpretation: </= 0.8 Al Negative 0.9-1.0 Al Equivocal >/= 1.1 Al Positive Lab Interpretation (test Normal code = 57602-6) [facility] HospitalCYTOMEGALOVIRUS ANTIBODY, [id number] 13:49:00 Test Item Value Reference Range Interpretation Comments CYTOMEGALOVIRUS, IGG (BEAKER) Positive Negative, Equivocal A (test code = 3429) CMV IgG Result Interpretation: </= 0.8 Al Negative 0.9-1.0 Al Equivocal >/=1.1 Al PositiveCYTOMEGALOVIRUS ANTIBODY, [id number] 13:49:00 Test Item Value Reference Range Interpretation Comments CYTOMEGALOVIRUS IGM ANTIBODY Negative Negative, Equivocal (BEAKER) (test code = 3437) CMV IgM Result Interpretation: </= 0.8 Al Negative 0.9-1.0 Al Equivocal >/= 1.1 Al PositiveEBV ANTIBODY, [id number] 13:49:00 Test Item Value Reference Range Interpretation [...] Negative 0.9-1.0 Al Equivocal >/= 1.1 Al [id number] 13:35:00 Test Item Value Reference Range Interpretation Comments T3, Total (test code = 3053-6) 51 ng/dL 48-159 Lab Interpretation (test code = Normal 74579-6) [facility] HospitalT32020-06-23 13:35:00 Test Item Value Reference Range Interpretation Comments T3 TOTAL (KIRK) (test code = 656) 51 ng/dL 48-159 PET/CT, CARDIAC PERF REST AND [id number] 12:45:00Referring: Dr. Rowdy Zhang for exam:->pre op cardiac clearance for liver transplantFINAL REPORT PROCEDURE: MYOCARDIAL PERFUSION PET IMAGING (Rest/Stress)CPT CODE: 43045 INDICATION: Evaluation for liver transplant CARDIOVASCULAR PROFILE:Symptoms: [...] prior study for comparison. Signed: Jennifer Melo Verified Date/Time: 01/18/2020 12:45:40 Reading Location: [address] Reading Room [place] Myocardial Perfusion Pet/CT (Rest & Stress)2020-01-18 12:45:00Interface, External Ris In - 01/18/2020 12:47 PM CDTFINAL REPORT PROCEDURE: MYOCARDIAL PERFUSION PET IMAGING (Rest/Stress)CPT CODE: 29501 INDICATION: Evaluation for liver transplant CARDIOVASCULAR PROFILE:Symptoms: [...] prior study for comparison. Signed: Jennifer Melo MDRepkindred hospital Verified Date/Time: 01/18/2020 12:45:40 Reading Location: [place] [id number] Reading Room [facility] HEPATIC FUNCTION [id number] 10:29:00 Test Item Value Reference Range Interpretation [...] (test code = 9 U/L 6-55 347) Avionics Mechanic ID - CHARO FSpecimen moderately ictericCBC W/PLT COUNT & AUTO [id number] 08:43:00 Test Item Value Reference Range Interpretation [...] CONCENTRATION Decreased (CELLAVISION)(BEAKER) (test code = 3438) Avionics Mechanic ID - [id number] ID - Lizett OverholtUser comments: Slide comments: [id number] 07:29:00 Test Item Value Reference Range Interpretation Comments MAGNESIUM (BEAKER) (test code = 2.1 mg/dL 1.6-2.6 627) Avionics Mechanic ID - CHARO FBASIC METABOLIC [id number] 07:29:00 Test Item Value Reference Range Interpretation [...] S NOT APPLICABLE FOR DIALYSIS PATIEN TS. Avionics Mechanic ID - CHARO FSpecimen moderately ictericAnti-Nuclear Antibody (REILLY) 2020-01-17 10:54:00 Test Item Value Reference Range Interpretation Comments REILLY (test code = 68245-6) Negative Negative VALENTE (test code = VALENTE) Test performed by IFA method.Test performed by IFA method. Lab Interpretation (test Normal code = 24996-9) [facility] HospitalANTI-NUCLEAR ANTIBODY (REILLY)2020-01-17 10:54:00 Test Item Value Reference Range Interpretation Comments ANTI-NUCLEAR ANTIBODY (REILLY) (BEAKER) Negative Negative (test code = 418) Test performed by IFA method.Test performed by IFA method.[id number] 10:49:00 Test Item Value Reference Range Interpretation Comments RPR (test code = 97561-9) Nonreactive Nonreactive Lab Interpretation (test code = Normal 26232-5) [facility] HospitalRPR2020-06-22 10:49:00 Test Item Value Reference Range Interpretation Comments RPR SCREEN (BEAKER) (test code = Nonreactive Nonreactive 420) CBC W/PLT COUNT & AUTO [id number] 10:00:00 Test Item Value Reference Range Interpretation [...] CONCENTRATION Decreased (CELLAVISION)(BEAKER) (test code = 3438) Avionics Mechanic ID - [id number] ID - Alem Mars comments: Slide comments:BASIC METABOLIC [id number] 05:16:00 Test Item Value Reference Range Interpretation [...] S NOT APPLICABLE FOR DIALYSIS PATIEN TS. Avionics Mechanic ID - PIAYA LSpecimen moderately rjdzmdwVVGVAYTKH3158-29-16 05:15:00 Test Item Value Reference Range Interpretation Comments MAGNESIUM (BEAKER) (test code = 2.1 mg/dL 1.6-2.6 627) Avionics Mechanic ID - MITCH LPROTHROMBIN TIME/[id number] 04:50:00 Test Item Value Reference Range Interpretation [...] patients wiht mechanical heart valves.Vitamin B12 and [id number] 16:46:00 Test Item Value Reference Range Interpretation Comments Vitamin B12 (test code = 1107 pg/mL 213-816 H 2132-9) Folate (test code = 2284-8) 3.40 ng/mL >=7.00 L VALENTE (test code = VALENTE) Avionics Mechanic ID - NTP Lab Interpretation (test Abnormal code = 57265-3) [facility] HospitalVITAMIN B12 AND [id number] 16:46:00 Test Item Value Reference Range Interpretation Comments VITAMIN B12 (BEAKER) (test code = 1107 pg/mL 213-816 H 774) FOLATE (BEAKER) (test code = 362) 3.40 ng/mL >=7.00 L Avionics Mechanic ID - NTPLactate dehydrogenase (LDH)2020-01-16 12:57:00 Test Item Value Reference Range Interpretation Comments LDH (test code = 2532-0) 250 U/L 125-220 H VALENTE (test code = VALENTE) Avionics Mechanic ID - TUAN C Lab Interpretation (test Abnormal code = 25689-5) [facility] HospitalLACTATE DEHYDROGENASE (LDH)2020-01-16 12:57:00 Test Item Value Reference Range Interpretation Comments LACTATE DEHYDROGENASE (BEAKER) (test 250 U/L 125-220 H code = 635) Avionics Mechanic ID - TUAN CRETICULOCYTE [id number] 12:44:00 Test Item Value Reference Range Interpretation Comments RETICULOCYTE COUNT PCT (BEAKER) (test 5.0 % 0.5-1.7 H code = 575) Avionics Mechanic ID - 6000HIV-1 Antigen with HIV-1/2 Xiopfrin8734-34-25 12:17:00 Test Item Value Reference Range Interpretation Comments HIV-1 Antigen with HIV Nonreactive Nonreactive 1&2 Antibody (test code = 65121-1) VALENTE (test code = VALENTE) Avionics Mechanic ID - TUAN C Lab Interpretation (test Normal code = 12044-9) [facility] HospitalHIV-1 ANTIGEN WITH HIV-1/2 [id number] 12:17:00 Test Item Value Reference Range Interpretation Comments HIV-1 ANTIGEN WITH HIV 1\\T\\2 Nonreactive Nonreactive ANTIBODY (2) (BEAKER) (test code = 2586) Avionics Mechanic ID - TUAN URuxbejejxho2722-33-62 12:02:00 Test Item Value Reference Range Interpretation Comments Haptoglobin (test code = <8 14-258 L 4542-7) VALENTE (test code = VALENTE) Avionics Mechanic ID - TUAN C Lab Interpretation (test Abnormal code = 53210-6) [facility] HospitalHAPTOGLOBIN2020-06-21 12:02:00 Test Item Value Reference Range Interpretation Comments HAPTOGLOBIN (BEAKER) (test code = < mg/dL 14-258 L 366) Avionics Mechanic ID - TUAN CHemoglobin [id number] 09:01:00 Test Item Value Reference Range Interpretation Comments Hemoglobin A1C (test code = 4548-4) <3.8 4.3-6.1 L Lab Interpretation (test code = Abnormal 09227-8) [facility] HospitalHEMOGLOBIN [id number] 09:01:00 Test Item Value Reference Range Interpretation Comments HEMOGLOBIN A1C (BEAKER) (test code = < % 4.3-6.1 L 368) U/S, ABDOMINAL, WITH [id number] 07:32:00Referring: Dr. Rowdy Mccarthy Reason for exam:->liver [...] Verified Date/Time: 01/16/2020 07:32:01 Reading Location: [address] Transitional Reading Room US abdominal with fzbwwrs5492-34-63 07:32:00Interface, External Ris In - 01/16/2020 7:34 [...] MDReport Verified Date/Time: 01/16/2020 07:32:01 Reading Location: [address] Reading Room [facility] METABOLIC [id number] 04:41:00 Test Item Value Reference Range Interpretation [...] S NOT APPLICABLE FOR DIALYSIS PATIEN TS. Avionics Mechanic ID - MITCH LSpecimen moderately [id number] 04:38:00 Test Item Value Reference Range Interpretation Comments MAGNESIUM (BEAKER) (test code = 2.3 mg/dL 1.6-2.6 627) Avionics Mechanic ID - MITCH LHEPATIC FUNCTION [id number] 04:38:00 Test Item Value Reference Range Interpretation [...] (test code = 9 U/L 6-55 347) Avionics Mechanic ID - MITCH RUTHERFORDpecimen moderately ictericPROTHROMBIN TIME/[id number] 04:36:00 Test Item Value Reference Range Interpretation [...] mechanical heart valves.CBC W/PLT COUNT & AUTO [id number] 04:29:00 Test Item Value Reference Range Interpretation [...] (BEAKER) (test code = 2801) Carotid doppler ikljtjrrs1113-58-73 00:34:03Ejection FractionSLEH ECHO HEARTLAB MKCKESSON CPACSRight Impression1. The internal, [...] AM CDTPV LAB - Carotid Duplex Study [facility] Patient Name CICI CALDERON Date of Study 01/15/2020 ALYSE Age 64 Visit Number [id number] Gender Female Accession Number [id number] Date of 1955 Referring [facility] Room Number 1515 Physician Pillowcase Maker Herbert Lechuga Interpreting Chelsea Resendez T Physician [...] + + + - Additional Measurements:ICAPSV/CCAPSV 0.96.ICAEDV/CCAEDV 1.52.[facility] HospitalBlood typing, automated - - at seperate draw time from initial type and towolg8590-40-32 20:34:00 Test Item Value Reference Range Interpretation Comments ABO/RH AUTOMATED (KIRK) (test A POSITIVE code = 2260) [facility] HospitalT42020-06-20 18:08:00 Test Item Value Reference Range Interpretation Comments T4, Total (test code = 4.3 ug/dL 4.9-11.7 L 3026-2) VALENTE (test code = VALENTE) Avionics Mechanic ID - NTP Lab Interpretation (test Abnormal code = 24676-7) [facility] HospitalT42020-06-20 18:08:00 Test Item Value Reference Range Interpretation Comments T4 TOTAL (BEAKER) (test code = 895) 4.3 ug/dL 4.9-11.7 L Avionics Mechanic ID - KYGGyjttmff8844-54-57 18:07:00 Test Item Value Reference Range Interpretation Comments Ferritin (test code = 489.86 ng/mL 5-275 H 2276-4) VALENTE (test code = VALENTE) Avionics Mechanic ID - NTP Lab Interpretation (test Abnormal code = 96265-7) [facility] HospitalFERRITIN2020-06-20 18:07:00 Test Item Value Reference Range Interpretation Comments FERRITIN (BEAKER) (test code = 489.86 ng/mL 5.00-275.00 H 361) Avionics Mechanic ID - NTPCT, CHEST, WITHOUT [id number] 17:57:00Referring: Dr. Reno SweattFINAL REPORT CT of the chest, without contrast [...] MDReport Verified Date/Time: 01/15/2020 17:57:54 Reading Location: [facility] C013X Ortho Consult Reading Room CT chest without IV hhnurvrd6562-76-15 17:57:00Interface, External Ris In - 01/15/2020 6:00 [...] [place] Verified Date/Time: 01/15/2020 17:57:54 Reading Location: [facility] C013X Ortho Consult Reading Room [facility] 2020-01-15 17:27:00 Test Item Value Reference Range Interpretation Comments TSH (test code = 62902-3) 5.549 0.350- 4.940 uIU/mL H VALENTE (test code = VALENTE) Avionics Mechanic ID - DB Lab Interpretation (test Abnormal code = 20424-4) [facility] HospitalVitamin D, 58-Dpiobbp3466-15-20 17:27:00 Test Item Value Reference Range Interpretation Comments Vitamin D 25-Hydroxy 6.2 ng/mL 6.6-49.9 L (test code = 2764) VALENTE (test code = VALENTE) Effective 05/07/2017: Reference Range ChangeNew: 6.6-49.9 ng/mL Previous: 13.0-47.8 ng/mL Recommended Vitamin D Target Range: 30.0-40.0 ng/mLOperator ID - DB Lab Interpretation (test Abnormal code = 76579-2) [facility] HospitalVITAMIN D, 91-[id number] 17:27:00 Test Item Value Reference Range Interpretation Comments VITAMIN D 25-OH (BEAKER) (test code 6.2 ng/mL 6.6-49.9 L = 2764) Effective 05/07/2017: Reference Range ChangeNew: 6.6-49.9 ng/mL Previous: 13.0-47.8 ng/mLRecommended Vitamin D Target Range: 30.0-40.0 ng/mLOperator ID - VRONN0545-06-15 17:27:00 Test Item Value Reference Range Interpretation Comments THYROID STIMULATING HORMONE 5.549 uIU/mL 0.350-4.940 H (BEAKER) (test code = 772) Avionics Mechanic ID - DBALPHA FETOPROTEIN (AFP), TUMOR [id number] 17:27:00 Test Item Value Reference Range Interpretation Comments ALPHA-FETOPROTEIN (BEAKER) (test code < ng/mL <10.0 = 1094) Avionics Mechanic ID - DBHepatitis B surface [id number] 17:25:00 Test Item Value Reference Range Interpretation Comments HBsAg Screen (test code Nonreactive Nonreactive = 5195-3) VALENTE (test code = VALENTE) Specimen is considered negative for HBsAg. Lab Interpretation (test Normal code = 44541-2) [facility] HospitalHepatitis B surface [id number] 17:25:00 Test Item Value Reference Range Interpretation Comments Hep B S Ab (test code = 25.0 <8.0 mIU/mL H 03307-4) VALENTE (test code = VALENTE) Avionics Mechanic ID - DB Lab Interpretation (test Abnormal code = 95147-8) [facility] HospitalHepatitis C txasozad5963-74-92 17:25:00 Test Item Value Reference Range Interpretation Comments Hepatitis C Ab (test code = Nonreactive Nonreactive 98785-6) VALENTE (test code = VALENTE) Avionics Mechanic ID - DB Lab Interpretation (test Normal code = 06687-0) [facility] HospitalHEHARLAN ARH HOSPITALTIS B SURFACE [id number] 17:25:00 Test Item Value Reference Range Interpretation Comments HEPATITIS B SURFACE ANTIGEN (2) Nonreactive Nonreactive (BEAKER) (test code = 2585) Specimen is considered negative for HBsAg.HEPATITIS B SURFACE [id number] 17:25:00 Test Item Value Reference Range Interpretation Comments HEPATITIS B SURFACE ANTIBODY 25.0 mIU/mL <8.0 H (BEAKER) (test code = 647) Avionics Mechanic ID - DBHEPATITIS C [id number] 17:25:00 Test Item Value Reference Range Interpretation Comments HEPATITIS C ANTIBODY (BEAKER) Nonreactive Nonreactive (test code = 367) Avionics Mechanic ID - DBCarcinoembryonic Antigen (CEA)2020-01-15 17:23:00 Test Item Value Reference Range Interpretation Comments CEA, SERUM (test code = 7.9 ng/mL 0-5 H 9-6) VALENTE (test code = VALENTE) Avionics Mechanic ID - DB Lab Interpretation (test Abnormal code = 77191-7) [facility] HospitalH[facility] B core antibody, [id number] 17:23:00 Test Item Value Reference Range Interpretation Comments Hep B C IgM (test code = Nonreactive Nonreactive 63309-2) VALENTE (test code = VALENTE) Avionics Mechanic ID - DB Lab Interpretation (test Normal code = 00733-8) [facility] HospitalHebluegrass community hospitaltis A antibody, [id number] 17:23:00 Test Item Value Reference Range Interpretation Comments Hep A IgM (test code = Nonreactive Nonreactive 76157-3) VALENTE (test code = VALENTE) Avionics Mechanic ID - DB Lab Interpretation (test Normal code = 09422-0) [facility] HospitalCARCINOEMBRYONIC ANTIGEN (CEA)2020-01-15 17:23:00 Test Item Value Reference Range Interpretation Comments CARCINOEMBRYONIC ANTIGEN (BEAKER) 7.9 ng/mL 0.0-5.0 H (test code = 685) Avionics Mechanic ID - DBHEPATITIS B CORE ANTIBODY, [id number] 17:23:00 Test Item Value Reference Range Interpretation Comments HEPATITIS B CORE IGM ANTIBODY Nonreactive Nonreactive (BEAKER) (test code = 645) Avionics Mechanic ID - DBHEPATITIS A ANTIBODY, [id number] 17:23:00 Test Item Value Reference Range Interpretation Comments HEPATITIS A IGM ANTIBODY (BEAKER) Nonreactive Nonreactive (test code = 498) Avionics Mechanic ID - DBRAD, MANDIBLE, MIN 4 [id number] 17:22:00Referring: Dr. Rowdy Zhang for exam:->liver transplant [...] Verified Date/Time: 01/15/2020 17:22:12 Reading Location: [address] Transitional Reading Room XR mandible min 4 [id number] 17:22:00Interface, External Ris In - 01/15/2020 5:24 [...] Alvarado Verified Date/Time: 01/15/2020 17:22:12 Reading Location: [facility] C013 Transitional [facility] 2 [id number] 17:16:00Referring: Dr. Rowdy Zhang for exam:->liver transplant [...] Verified Date/Time: 01/15/2020 17:16:49 Reading Location: [address] Transitional Reading Room XR chest 2 [id number] 17:16:00Interface, External Ris In - 01/15/2020 5:19 [...] Alvarado Verified Date/Time: 01/15/2020 17:16:49 Reading Location: [facility] C0[facility] Transitional Reading Room [facility] 2D Echo W/Doppler(CW/PW/Color)2020-01-15 17:15:41Ejection FractionSLE ECHO HEARTLAB MKCKESSON CPACSInterface, External Ris In - 01/15/2020 5:15 PM C DTTransthoracic Echocardiography Report (TTE) Demographics Patient Name CICI CALDERON Date of Study 01/15/2020 ALYSE Gender Female Visit Number [id number] Race Unknown Room Number 1515 Number Date of 1955 Referring Physician Ren Hernandez MD Age 64 year(s) Pillowcase Maker Lisa Bautista [facility] Interpreting Jai Arreguin MD Physician Procedure [...] CO: 7.05 l/min LVOT CI: 3.67 l/min/m^2[facility] CenterCOMPREHENSIVE METABOLIC [id number] 17:06:00 Test Item Value Reference Range Interpretation [...] S NOT APPLICABLE FOR DIALYSIS PATIEN TS. Avionics Mechanic ID - NTPSpecimen moderately [id number] 17:03:00 Test Item Value Reference Range Interpretation Comments Fibrinogen (test code = 3255-7) 114 mg/dl 225-434 L Lab Interpretation (test code = Abnormal 15553-9) [facility] 17:03:00 Test Item Value Reference Range Interpretation Comments FIBRINOGEN LEVEL (BEAKER) (test 114 mg/dl 225-434 L code = 658) [id number] 17:00:00 Test Item Value Reference Range Interpretation Comments Transferrin (test code = 102 mg/dL 174-382 L 3034-6) VALENTE (test code = VALENTE) Avionics Mechanic ID - DBSpecimen moderately icteric Lab Interpretation (test Abnormal code = 12082-8) [facility] HospitalIron, TIBC, % sat. (without ferritin)2020-01-15 17:00:00 Test Item Value Reference Range Interpretation Comments Iron (test code = 2498-4) 144.0 ug/dL 40-160 TIBC (test code = 2500-7) 129 ug/dL 250-450 L Iron % Saturation (test code 112 % 20-55 H = 2502-3) VALENTE (test code = VALENTE) Avionics Mechanic ID - DB Lab Interpretation (test Abnormal code = 27494-9) [facility] 17:00:00 Test Item Value Reference Range Interpretation Comments TRANSFERRIN (BEAKER) (test code = 102 mg/dL 174-382 L 541) Avionics Mechanic ID - DBSpecimen moderately ictericIRON, TIBC, % SAT. (WITHOUT FERRITIN) 2020-01-15 17:00:00 Test Item Value Reference Range Interpretation Comments IRON (BEAKER) (test code = 547) 144.0 ug/dL 40.0-160.0 TOTAL IRON BINDING CAPACITY 129 ug/dL 250-450 L (BEAKER) (test code = 769) IRON % SATURATION (2) (BEAKER) 112 % 20-55 H (test code = 2590) Avionics Mechanic ID - ZTNjynm-2-onkgjtousgp9033-06-20 16:59:00 Test Item Value Reference Range Interpretation Comments A-1 Antitrypsin (test code = 121.20 mg/dL 90-200 1825-9) VALENTE (test code = VALENTE) Avionics Mechanic ID - DB Lab Interpretation (test Normal code = 59008-4) [facility] HospitalBILIRUBIN, [id number] 16:59:00 Test Item Value Reference Range Interpretation Comments BILIRUBIN DIRECT 1.6 mg/dL 0.1-0.5 H Specimen sl ightly (BEAKER) (test code = hemoly zed 706) Avionics Mechanic ID - [id number]-0-[id number] 16:59:00 Test Item Value Reference Range Interpretation Comments ALPHA-1 ANTITRYPSIN (BEAKER) 121.20 mg/dL 90.00-200.00 (test code = 502) Avionics Mechanic ID - [id number] 16:58:00 Test Item Value Reference Range Interpretation Comments Ethanol Lvl (test code = <10 <=10 mg/dL 5643-2) VALENTE (test code = VALENTE) Avionics Mechanic ID - DB Lab Interpretation (test Normal code = 17820-5) [facility]aPTT[facility] 16:58:00 Test Item Value Reference Range Interpretation Comments PTT (test code = 76608-6) 36.8 22.5- 36.0 seconds H Lab Interpretation (test code = Abnormal 59044-0) [facility]APTT[facility] 16:58:00 Test Item Value Reference Range Interpretation Comments PARTIAL THROMBOPLASTIN TIME 36.8 seconds 22.5-36.0 H (BEAKER) (test code = 760) [id number] 16:58:00 Test Item Value Reference Range Interpretation Comments ETHANOL (BEAKER) (test code = 400) < mg/dL <=10 Avionics Mechanic ID - DBPROTHROMBIN TIME/[id number] 16:57:00 Test Item Value Reference Range Interpretation [...] is2.5-3.5 for patients wiht mechanical heart valves.CALCIUM, [id number] 16:45:00 Test Item Value Reference Range Interpretation Comments CALCIUM IONIZED (BEAKER) (test 1.08 mmol/L 1.12-1.27 L code = 698) PH, BLOOD (BEAKER) (test code = 7.38 1810) CREATININE, RANDOM [id number] 13:46:00 Test Item Value Reference Range Interpretation Comments CREATININE URINE (BEAKER) (test 280.7 mg/dL code = 375) Reference Range: No NormalsOperator ID - NTPSODIUM, RANDOM [id number] 13:46:00 Test Item Value Reference Range Interpretation Comments SODIUM URINE (BEAKER) (test code = < meq/L 243) Reference Range: No NormalsOperator ID - NTPHepatitis panel, [id number] 13:05:00 Test Item Value Reference Range Interpretation Comments Hep A IgM (test code = Nonreactive Nonreactive 96590-5) Hep B C IgM (test code = Nonreactive Nonreactive 61806-3) Hepatitis C Ab (test code = Nonreactive Nonreactive 92510-3) HBsAg Screen (test code = Nonreactive Nonreactive 5195-3) VALENTE (test code = VALENTE) Avionics Mechanic ID - NTP Lab Interpretation (test Normal code = 57635-5) [facility] HospitalHEPATITIS PANEL, [id number] 13:05:00 Test Item Value Reference Range Interpretation Comments HEPATITIS A IGM ANTIBODY (BEAKER) Nonreactive Nonreactive (test code = 498) HEPATITIS B CORE IGM ANTIBODY Nonreactive Nonreactive (BEAKER) (test code = 645) HEPATITIS C ANTIBODY (BEAKER) Nonreactive Nonreactive (test code = 367) HEPATITIS B SURFACE ANTIGEN (2) Nonreactive Nonreactive (BEAKER) (test code = 2585) Avionics Mechanic ID - NTPLipid [id number] 11:51:00 Test Item Value Reference Range Interpretation Comments Triglycerides (test 86 mg/dL code = 2571-8) Cholesterol (test code 101 mg/dL = 2093-3) HDL (test code = 12 mg/dL 2085-9) LDL Calculated (test 72 mg/dL code = 34994-8) VALENTE (test code = VALENTE) Triglyceride Reference Range: Low Risk <150 Borderline 150-199 High Risk 200-499 Very High Risk >=500 Cholesterol Reference Range: Low Risk <200 Borderline 200-239 High Risk >240 HDL Cholesterol Reference Range: Low Risk >=60 High Risk <40 LDL Cholesterol Reference Range: Optimal <100 Near Optimal 100-129 Borderline 130-159 High 160-189 Very High >=190 Avionics Mechanic ID - NTPSpecimen moderately icteric [facility] HospitalGamma Glutamyl Transferase (GGT)2020-01-15 11:51:00 Test Item Value Reference Range Interpretation Comments GGT (test code = 2324-2) 15 U/L 9 VALENTE (test code = VALENTE) Avionics Mechanic ID - NTPSpecimen moderately icteric Lab Interpretation (test Normal code = 03861-4) [facility] HospitalUric [id number] 11:51:00 Test Item Value Reference Range Interpretation Comments Uric Acid (test code = 15.7 mg/dL 2.6-7.2 H 3084-1) VALENTE (test code = VALENTE) Avionics Mechanic ID - NTPSpecimen moderately icteric Lab Interpretation (test Abnormal code = 47624-9) [facility] HospitalURIC [id number] 11:51:00 Test Item Value Reference Range Interpretation Comments URIC ACID (BEAKER) (test code = 15.7 mg/dL 2.6-7.2 H 773) Avionics Mechanic ID - NTPSpecimen moderately ictericLIPID [id number] 11:51:00 Test Item Value Reference Range Interpretation [...] Borderline 130-159 High 160-189 Very High >=190 Avionics Mechanic ID - NTPSpecimen moderately [id number] 11:51:00 Test Item Value Reference Range Interpretation Comments PHOSPHORUS (BEAKER) (test code = 4.5 mg/dL 2.3-4.7 604) Avionics Mechanic ID - NTPGAMMA GLUTAMYL TRANSFERASE (GGT)2020-01-15 11:51:00 Test Item Value Reference Range Interpretation Comments GAMMA GLUTAMYL TRANSFERASE (BEAKER) 15 U/L 964 (test code = 364) Avionics Mechanic ID - NTPSpecimen moderately ictericCBC W/PLT COUNT & AUTO [id number] 11:25:00 Test Item Value Reference Range Interpretation [...] CONCENTRATION Decreased (CELLAVISION)(BEAKER) (test code = 3438) Avionics Mechanic ID - 6000Operator ID - Ana Laura James comments: Slide comments: [id number] 10:20:00 Test Item Value Reference Range Interpretation Comments MAGNESIUM (BEAKER) (test code = 2.2 mg/dL 1.6-2.6 627) Avionics Mechanic ID - [id number] 08:57:00 Test Item Value Reference Range Interpretation Comments Ammonia (test code = 19 18- 72 mol/L 46225-4) VALENTE (test code = VALENTE) Avionics Mechanic ID - NTP Lab Interpretation (test Normal code = 88834-7) [facility] HospitalAMMONIA2020-06-20 08:57:00 Test Item Value Reference Range Interpretation Comments AMMONIA (BEAKER) (test code = 348) 19 mol/L 18-72 Avionics Mechanic ID - NTPHEPATIC FUNCTION [id number] 05:21:00 Test Item Value Reference Range Interpretation [...] (test code = 12 U/L 6-55 347) Avionics Mechanic ID - DALTON MSpecimen moderately ictericBASIC METABOLIC [id number] 05:15:00 Test Item Value Reference Range Interpretation Comments SODIUM (BEAKER) 133 meq/L 136-145 L (test code = 381) POTASSIUM (BEAKER) 3.3 meq/L 3.5-5.1 L (test code = 379) CHLORIDE (BEAKER) 102 meq/L 98-107 (test code = 382) CO2 (BEAKER) (test 23 meq/L - code = 355) BLOOD UREA NITROGEN 48 [...] S NOT APPLICABLE FOR DIALYSIS PATIEN TS. Avionics Mechanic ID - DALTON MSpecimen moderately ictericPROTHROMBIN TIME/[id number] 04:37:00 Test Item Value Reference Range Interpretation [...] Detected Not Detected, (test code = Negative 83254-5) SARS-COV-2 [facility] PERFORM[facility] (test code = 62829-0) VALETNE (test code = Negative results do not [...] of the Act. Fact Sheet for Healthcare Providers:https://www.[employer]/Documents/Xper t%20Xpress%20SARS%20CoV- 2/Fact%20Sheets/3023802 %86HRGK-VDR-6%20HEALTHCA RE%20PROVIDERS%20FACT%20 SHEET.pdf Fact Sheet for Healthcare Patients:https://www.[employer]/Documents/Xpert %20Xpress%20SARS%20CoV-2 /Fact%20Sheets/3023801% 48FZXF-NOR-0%20PATIENT%2 0FACT%20SHEET.pdf Performing Laboratory:[facility] [place], [place] [address] [place], [place] [address]ARS-COV2/RT-PCR ([facility])2020-01-15 01:48:00 Test Item Value Reference Range Interpretation Comments SARS-COV2/RT-PCR (test Not Detected Not Detected, Negative code = 5533597) SARS-COV-[address] [facility] (test code = 1910312) Negative results do not preclude SARS-CoV-2 infection [...] of the Act.Fact Sheet for Healthcare Pro viders:https://www.[employer]/Documents/Xpert%20Xpress%20SARS%20CoV-2/Fact%20Sh eets/302-3802%36CZEZ-MRT-2%20HEALTHCARE%20PROVIDERS%20FACT%20SHEET.pdfFact Sheet for Healthcare Patients:https://www.[employer]/Documents/Xpert%20Xpress%20SARS%20CoV-2/Fact%20Sheets/302-3801%20SARS-COV -2%20PATIENT%20FACT%20SHEET.pdfPerforming Laboratory:[facility] [place], [place] [address]saloni Francois.[place], [place] [address] [id number] 22:40:00 Test Item Value Reference Range Interpretation [...] S NOT APPLICABLE FOR DIALYSIS PATIEN TS. Avionics Mechanic ID - DBSpecimen moderately ictericHEPATIC FUNCTION [id number] 22:39:00 Test Item Value Reference Range Interpretation [...] Specimen slightly (test code = 347) hemolyzed Avionics Mechanic ID - DBSpecimen moderately ictericPROTHROMBIN [id number] 22:28:00 Test Item Value Reference Range Interpretation [...] mechanical heart valves.CBC W/PLT COUNT & AUTO [id number] 22:22:00 Test Item Value Reference Range Interpretation [...] code = 2801) ALPHA FETOPROTEIN (AFP), TUMOR [id number] 18:31:00 Test Item Value Reference Range Interpretation Comments ALPHA-FETOPROTEIN (BEAKER) (test code < ng/mL <10.0 = 1094) Avionics Mechanic ID - DBBASIC METABOLIC [id number] 15:23:00 Test Item Value Reference Range Interpretation [...] S NOT APPLICABLE FOR DIALYSIS PATIEN TS. Avionics Mechanic ID - BSPlease sent STATSpecimen moderately ictericHEPATIC FUNCTION [id number] 15:18:00 Test Item Value Reference Range Interpretation [...] (test code = 17 U/L 6-55 347) Avionics Mechanic ID - BSPlease sent STATSpecimen moderately ictericPROTHROMBIN [...] patients wiht mechanical heart valves.Please sent STATCBC W/PLT COUNT & AUTO [id number] 15:05:00 Test Item Value Reference Range Interpretation [...] (BEAKER) (test code = 2801) CT, ABDOMEN, [id number] 15:58:00Referring: Dr. Reno SweattFINAL REPORT CT OF [...] MDReport Verified Date/Time: 05/02/2017 15:58:35 Reading Location: [address] Body Reading Room CBC W/PLT COUNT & AUTO [id number] 17:30:00 Test Item Value Reference Range Interpretation [...] code = 417) 0.00ALPHA FETOPROTEIN (AFP), TUMOR [id number] 16:31:00 Test Item Value Reference Range Interpretation Comments ALPHA-FETOPROTEIN (BEAKER) (test 3.3 ng/mL <10.0 code = 1094) Effective 06/14/2014: Reference Range ChangeNew: <10.0 Previous: 0.0-8.0 BASIC METABOLIC [id number] 16:13:00 Test Item Value Reference Range Interpretation [...] FOR DIALYSIS PATIEN TS. Specimen slightly ictericLIPID [id number] 16:13:00 Test Item Value Reference Range Interpretation [...] Very High >=190 Specimen slightly ictericHEPATIC FUNCTION [id number] 16:13:00 Test Item Value Reference Range Interpretation [...] (test code = 364) Specimen slightly ictericPROTHROMBIN TIME/[id number] 16:13:00 Test Item Value Reference Range Interpretation [...]
--- OUTSIDE RECORDS SUMMARY | 2020-04-14 07:29 | XMS REPORT ---
[...] Status Dosage System Date Date Gabapentin ND 64338852188 100 MG Orally January Active 1 c apsule Once a day 2019 Lactulose ND 58163133601 20 GM/30ML Active 15 ml Orally Once a day Cimetidine ND 16368744219 200 MG Orally Active 1 t ablet as Once a day needed Albuterol ND 41675362763 108 (90 Base) October Active 1 pu ff as Sulfate HFA MCG/ACT 09, needed Inhalation 2019 every 6 hrs Calcitriol ND 21424576593 0.5 MCG Orally Active 1 capsule Once a day Triamcinolone ND 28471571738 0.1 % January Active 1 appl ication Acetonide Externally , Twice a day 2019 Results No Known Results Immunizations Vaccine Administration Date Hepatitis A (adult) February 21, 2020 Hepatitis B (adult) February 21, 2020 Summary Purpose eClinicalWorks Submission
--- OUTSIDE RECORDS SUMMARY | 2020-04-14 07:29 | XMS REPORT ---
[...] End Status Dosage System Date Date Xixa [facility] 39261208790 550 MG Orally Active 1 tabl et Twice a day Folic Acid ND 16187272307 1 MG Orally Active 1 tab let Once a day Spironolactone [facility] 65099217778 25 MG Orally Active 1 tablet Vitamin D2 [facility] 00846624748 10 MCG (400 Active 2 tab lets UNIT) Orally Once a day Albuterol Sulfate [facility] 68867067183 108 (90 Base) October Acti ve 1 puff as HFA MCG/ACT , needed Inhalation 2019 every 6 hrs Calcitriol [facility] 97497650294 0.5 MCG Orally Active 1 capsule Once a day MagOx 400 [facility] 10935507802 400 (241.3 Mg) Active 1 t ablet MG Orally Once with food a day Lactulose [facility] 66380845791 20 GM/30ML Active 15 ml Orally Once a day Tramadol HCl [facility] 96088070731 50 MG Orally Active 1 tablet as Once a day needed Midodrine HCl [facility] 96299183124 2.5 MG Orally Active 1 tablet Three times a day Cimetidine [facility] 49453500773 200 MG Orally Active 1 t ablet as Once a day needed Pantoprazole [facility] [address]-77 40 MG Orally Active 1 packet Sodium Once a day mixed with apple juice or applesauce Results No Known Results Summary Purpose eClinicalWorks Submission
[2020-04-14 08:19] VITALS: BMI 31.6
[2020-04-14] MEDS ORDERED: ALBUMIN HUMAN 25% 300 ML IV ONE (10:07)
[2020-04-14 11:09] VITALS: BP 100/50; TEMP 97.2; O2SAT 100
--- NOTE | 2020-04-14 11:11 | RAD REPORT ---
EXAM DESCRIPTION: US - Paracentesis Proc Guidance - 04/14/2020 9:13 am CLINICAL HISTORY: Ascites COMPARISON: Multiple prior paracentesis procedures TECHNIQUE: The patient presents for ultrasound-guided paracentesis. The procedure, risks and altern atives were discussed with the patient in detail. Oral and written consent were obtained. Time out p rocedure was performed. The patient had no contraindicated allergy or medication history. PT, INR va lues within acceptable limits. Preliminary sonographic evaluation identified right lower quadrant access site. The skin and deeper tissues were anesthetized with 1 percent lidocaine. Under direct sonographic visualization, a parace ntesis catheter was advanced into the peritoneal cavity. Approximately 15 mL of ascites retained for studies. Large volume drainage was initiated. Approximately 8 liters of ascites removed. At the conclusion of the procedure, catheter was withdrawn and a bandage placed at the puncture site. Postprocedure care and precaution instructions were given to the patient. IMPRESSION: Ultrasound-guided paracentesis as detailed.
[2020-04-14 11:17] LABS: Appearance CLEAR (CLEAR); Body Fluid Source PERITONEAL; Body Fluid WBC 49 /mm^3; Color of fluid Yellow (COLORLESS)
== END 2020-04-14 10:50 | disposition home or self-care (01) ==
LOC: DS 07:16
PROVIDERS: ATTEND Internal Medicine Gastroenterology
DX: R18.8 Other ascites (principal); K70.0 Alcoholic fatty liver; K74.69 Other cirrhosis of liver; R17 Unspecified jaundice; R14.0 Abdominal distension (gaseous)
CPT/HCPCS: 87070; 36415; 89050; 96365; 49083; P9047

== ENCOUNTER 2020-04-28 08:12 | Day surgery (SDC) | payer OTHER ==
[2020-04-28 09:25] VITALS: O2SAT 100; BMI 31.6
--- NOTE | 2020-04-28 10:03 | RAD REPORT ---
EXAM DESCRIPTION: US - Paracentesis Proc Guidance - 04/28/2020 9:30 am CLINICAL HISTORY: Ascites COMPARISON: Multiple prior paracentesis procedures TECHNIQUE: The patient presents for ultrasound-guided paracentesis. The procedure, risks and altern atives were discussed with the patient in detail. Oral and written consent were obtained. Time out p rocedure was performed. The patient had no contraindicated allergy or medication history. PT, INR va lues within acceptable limits. Preliminary sonographic evaluation identified right lower quadrant access site. The skin and deeper tissues were anesthetized with 1 percent lidocaine. Under direct sonographic visualization, a parace ntesis catheter was advanced into the peritoneal cavity. Large volume drainage was initiated. Approx imately 8 liters of ascites removed. Approximately 15 mL of ascites retained for requested laboratory studies. At the conclusion of the procedure, catheter was withdrawn and a bandage placed at the puncture site. Postprocedure care and precaution instructions were given to the patient. Patient was transferred b [facility] to same-day surgery for pending albumin infusion using referring physician protocol. IMPRESSION: Ultrasound-guided paracentesis as detailed.
[2020-04-28] MEDS ORDERED: ALBUMIN HUMAN 25% 300 ML IV ONE (10:17)
[2020-04-28 11:33] VITALS: BP 100/48; TEMP 98
[2020-04-28 12:37] LABS: Appearance CLEAR (CLEAR); Body Fluid Source PERITONEAL; Body Fluid WBC 67 /mm^3; Color of fluid Yellow (COLORLESS)
--- OUTSIDE RECORDS SUMMARY | 2020-05-03 18:46 | XMS REPORT | Clinical Summary ---
:1955 Author Organization [facility] Address [address] [place] [address] Care Team Providers Name Role Phone Nahun Leonard MD Primary Care Provider Allergies Not on File Medications Not on file Active Problems Not on file Social History Tobacco Use Types Packs/Day Years Used Date Never Assessed Sex Assigned at Date Recorded Not on file Last Filed Vital Signs Not on file Plan of Treatment Health Maintenance Due Date Last Done Comments CERVICAL CANCER SCREENING 1975 BREAST CANCER SCREENING 2004 COLONOSCOPY SCREENING 2004 SHINGLES VACCINES (#1) 2004 65+ PNEUMOCOCCAL VACCINE (1 of 1 - PPSV23) 2019 INFLUENZA VACCINE 02/26/2020 Results Not on fileafter 05/03/2019 Advance Directives For more information, please contact: [phone] Type Date Recorded Patient Hotel Assistant Manager Explanati on Advance Directives, Living Will and Medical Power of Storage 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
--- OUTSIDE RECORDS SUMMARY | 2020-05-03 18:50 | XMS REPORT | Clinical Summary ---
:1955 Author Organization [facility] Address [address] [place] [address] Care Team Providers Name Role Phone Zeinab [...] Encounters Date Type Specialty Care Team Description 05/03/2020 Documentation Transplant Hepatology Cary Talley RN 05/02/2020 Documentation Transplant Hepatology Brigitte Hamilton 04/20/2020 Documentation Transplant Hepatology Brigitte Hamilton 04/18/2020 Documentation Transplant Hepatology Tata Hernandez 04/18/2020 Documentation Transplant Hepatology Cary Talley RN 04/18/2020 Documentation Transplant Hepatology Tata Hernandez 04/18/2020 Documentation Transplant Hepatology Tata Hernandez 04/18/2020 Telephone Transplant Hepatology Cary Talley RN 04/17/2020 Orders Only Transplant HepatCary Estrada Pre- transplant evaluation for liver transplant; R RN 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, unspecified hepatic cirrhosis type (HCC) 04/12/2020 Orders Only Transplant HepatCary Estrada organ transplant status (Primary Dx); FRANCISCA Dodson 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, unspecified hepatic cirrhosis type (HCC); Encounter for s creening mammogram for malignant neoplasm of breast ; Hepatic cirrhos is, unspecified hepatic cirrhosis type, unspecified whether ascites present (HCC) 04/12/2020 Telephone Transplant HepatCary Estrada ow-up FRANCISCA Dodson 04/12/2020 Telephone Transplant Hepatology Cary Talley ow-up R, RN 04/12/2020 Documentation Transplant Hepatology Hamilton, Micheyl 04/11/2020 Hospital Encounter America, Kristofer Cirrhosis of [...] alignant neoplasm 04/11/2020 Documentation Transplant Hepatology Cary Talley RN 04/10/2020 Documentation Transplant Hepatology Hamilton, Jose Migueleyblake 04/10/2020 Documentation Transplant Hepatology Hamilton, Micheyl 04/10/2020 Orders Only Transplant Hepatology Cary Talley Cirr hosis of liver without ascites, unspecified hepatic cirrhosis type (HCC) (Primary Dx); R RN Awaiting organ transplant status; Screening for m alignant neoplasm 04/06/2020 Telephone Hepatology José Sahni H, AMRIT 03/20/2020 Documentation Transplant Hepatology Hamilton, Micheyl 03/14/2020 Documentation Transplant Hepatology Cary Talley R RN 03/10/2020 Orders Only Transplant Hepatology Cary Talley Pre- transplant evaluation for liver transplant; R RN 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, [...] Hepatology Hamilton, Micheyl 02/16/2020 Documentation Central Scheduling Brigitte Hamilton 02/16/2020 Orders Only Transplant Hepatology Cary Talley Cirr hosis of liver without ascites, unspecified hepatic cirrhosis type (HCC) (Primary Dx); R, RN Pre-transplant evaluation for liver transplant 02/15/2020 Follow-Up Transplant Hepatology LivenolablakeSia Cirrh osis of liver without ascites, unspecified hepatic cirrhosis type (HCC) (Primary Dx); MD Alex Acute liver failure without hepatic coma ; Kristofer Cross MD Pre-transplant evaluation for liver transplant; Acute and subac nikolski hepatic failure with coma (HCC) 02/15/2020 Telephone Transplant Hepatology Cary Talley meld update R, RN 02/15/2020 Telephone Transplant Hepatology Cary Talley othe r R, RN 02/15/2020 Orders Only Transplant Hepatology Areli Hein RN 02/14/2020 Documentation Transplant Hepatology Alfonso Jose Miguelsuresh 02/11/2020 Telephone Hepatology Genesis Acevedo, Dai Goncalves MA (confirm) 02/08/2020 Telephone Transplant Hepatology Cary [...] Orders Only Hepatology Laron, Line Hepatic Kastrup, BLOGS MANAGER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) 02/03/2020 Documentation Hepatology Kristofer Cross MD 02/02/2020 Telephone Transplant Hepatology Cary Talley R, RN 02/01/2020 UNOS Charge Visit Transplant Hepatology Rito Saini irrhosis of liver Ildefonso Spencer MD without ascites , unspecified hep atic cirrhosis type (HCC) 02/01/2020 Documentation Transplant Hepatology Alfonso Jose Miguelsuresh 02/01/2020 Abstract Transplant Hepatology Cary Talley R, RN 02/01/2020 Telephone Hepatology PRIOR ITZEL Craven (HENRY GOMEZ) Kimmie 02/01/2020 Orders Only Transplant Hepatology Cary Talley Pre- transplant evaluation for liver transplant (Primary Dx); R, RN 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, unspecified hepatic cirrhosis type (HCC) 02/01/2020 Telephone Transplant Hepatology Cary Talley Labs Only R, RN 01/31/2020 Documentation Intensive Care Dex-Leo Atwood 01/31/2020 Documentation Transplant Hepatology Cary Talley [...] LV) 01/18/2020 Outside Orders Radiology Mitzy English, BLOGS MANAGER 01/17/2020 Anesthesia Event Gastroenterology Vinicius, Tigist Gottlieb, LIBRARY SUPERVISOR 01/17/2020 Surgery Gastroenterology Sylvei George, UPPER ENDOSCOPY,BIOPS Y 01/15/2020 Documentation Transplant Hepatology Cheryle Fischer Cirr hosis of liver without ascites, unspecified hepatic cirrhosis type (HCC); P, RN Pre-transplant evaluation for liver transplant 01/14/2020 Hospital Encounter General Internal Athreya, Cirrh osis of liver without ascites, unspecified hepatic cirrhosis type (HCC); - Medicine Tameka Other ascites; 01/26/2020 Radha, Portal hyperten lamberto (HCC); Secondary esophageal varices without ble eding (HCC); Juana, Acute renal florecita lure, unspecified acute renal failure type (HCC); MD Leena Acute liver failure without hepatic coma ; Kaylin Michelle MD Obesity (BMI 35.0-39.9 without comorbidi ty); Gregoria, Screening for m alignant neoplasm; Florian Feng Immunity status testing; Ramone, Hepatorenal syn drome [...] 01/07/2020 Orders Only Transplant Hepatology Cary Talley Scre ening for malignant neoplasm (Primary Dx); R [...] Secondary esophageal varices without ble eding (HCC); Laron Line Obesity (BMI 35.0-39.9 without comorbidity); Kastrup, BLOGS MANAGER Adrenal mass, l eft ; Screening for m alignant neoplasm; Elevated serum creatinine; Other ascites 12/31/2019 Telephone Hepatology Dai Healy MA 12/21/2019 Documentation Hepatology Kadie Larry Kastrup, BLOGS MANAGER 12/17/2019 Abstract Hepatology Ivanna Healy MA 12/16/2019 Abstract Hepatology Janna Aparicio RN 12/16/2019 Abstract Hepatology Janna Aparicio RN 12/16/2019 Abstract Hepatology Janna Aparicio RN 12/15/2019 Audio - Hepatology Kadie Larry Portal hypert ension (Primary Dx); Telemedicine Kastrup, BLOGS MANAGER 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); Obesity (BMI 35 .0-39.9 without comorbidity); Adrenal mass, l eft ; Screening for m alignant neoplasm 12/14/2019 Telephone Hepatology José Sahni Appointment H, MA after 05/03/2019 Family History Medical History Relation Name Comments [...] Procedure Name Priority Date/Time Associated Comments Diagnosis PLATELET ESTIMATION Routine 05/02/2020 1:25 Resu lts for this PM CDT procedure are i n the results section. BILIRUBIN, DIRECT STAT 05/02/2020 1:25 Pre-transplant Resu lts for this PM CDT evaluation for procedure are in liver transplant the results Cirrhosis of liver section. without ascites, unspecified hepatic cirrhosis type (HCC) CBC W/PLT COUNT & STAT 05/02/2020 1:25 Pre-transplant Resu lts for this AUTO DIFFERENTIAL PM CDT evaluation for procedur e are in liver transplant the results Cirrhosis of liver section. without ascites, unspecified hepatic cirrhosis type (HCC) COMPREHENSIVE STAT 05/02/2020 1:25 Pre-transplant Results for this METABOLIC PANEL PM CDT evaluation for procedure are in liver transplant the results Cirrhosis of liver section. without ascites, unspecified hepatic cirrhosis type (HCC) PROTHROMBIN TIME/INR STAT 05/02/2020 1:25 Pre-transplant R esults for this PM CDT evaluation for procedure are in liver transplant the results Cirrhosis of liver section. without ascites, unspecified hepatic cirrhosis type (HCC) PLATELET ESTIMATION Routine 04/25/2020 1:13 Resu lts for this PM CDT procedure are i n the results section. BILIRUBIN, DIRECT STAT 04/25/2020 1:13 Pre-transplant Resu lts for this PM CDT evaluation for procedure are in liver transplant the results Cirrhosis of liver section. without ascites, unspecified hepatic cirrhosis type (HCC) CBC W/PLT COUNT & STAT 04/25/2020 1:13 Pre-transplant Resu lts for this AUTO DIFFERENTIAL PM CDT evaluation for procedur e are in liver transplant the results Cirrhosis of liver section. without ascites, unspecified hepatic cirrhosis type (HCC) COMPREHENSIVE STAT 04/25/2020 1:13 Pre-transplant Results for this METABOLIC PANEL PM CDT evaluation for procedure are in liver transplant the results Cirrhosis of liver section. without ascites, unspecified hepatic cirrhosis type (HCC) PROTHROMBIN TIME/INR STAT 04/25/2020 1:13 Pre-transplant R esults for this PM CDT evaluation for procedure are in liver transplant the results Cirrhosis of liver section. without ascites, unspecified hepatic cirrhosis type (HCC) BILIRUBIN, DIRECT STAT 04/18/2020 8:56 Pre-transplant Resu lts for this AM CDT evaluation for procedure are in liver transplant the results Cirrhosis of liver section. without ascites, unspecified hepatic cirrhosis type (HCC) CBC W/PLT COUNT & STAT 04/18/2020 8:56 Pre-transplant Resu lts for this AUTO DIFFERENTIAL AM CDT evaluation for procedur e are in liver transplant the results Cirrhosis of liver section. without ascites, unspecified hepatic cirrhosis type (HCC) COMPREHENSIVE STAT 04/18/2020 8:56 Pre-transplant Results for this METABOLIC PANEL AM CDT evaluation for procedure are in liver transplant the results Cirrhosis of liver section. without ascites, unspecified hepatic cirrhosis type (HCC) PROTHROMBIN TIME/INR STAT 04/18/2020 8:56 Pre-transplant R esults for this AM CDT evaluation for procedure are in liver transplant the results Cirrhosis of liver section. without ascites, unspecified hepatic cirrhosis type (HCC) XR DXA BONE DENSITY Routine 04/11/2020 11:51 [...] procedure are i n the results section. [id number] AP Routine 01/19/2020 9:43 PHENOTYP PM CDT [...] 452 ms QTC Calculation(Bazett) 458 ms P [place] 59 degrees R [place] 32 degrees T [place] 56 degrees Normal sinus rhythm Normal ECG [...] procedure are i n the results section. [id number]\\, Routine 01/15/2020 4:17 Re sults for this [...] are i n the results section. SARS-COV2/RT-PCR ([facility] STAT 01/14/2020 7:28 R esults [...] results hepatic cirrhosis section. type (HCC) after 05/03/2019 Results PLATELET ESTIMATION (05/02/2020 1:25 PM CDT)Only the most recent of3 results within the time period is included. Platelet Estimate DECREASED (A) ADEQUATE [facility] Specimen Narrative Performed At FASTING:NO [facility] FASTING: NO Resulting Agency Comment Performing Organization Information: Site ID: [id number] Name: [facility] Address: [address] [place] [phone] Director: Jj Carrasco Performing Organization Address City/[facility] Phone Number [facility] [address] [place] [address] [facility] Prothrombin time/INR (05/02/2020 1:25 PM CDT)Only the most recent of22 results within the time period is included. INR 1.2 (H) [facility] Comment: Reference Range 0.9-1.1 Moderate-intensity Warfarin Therapy 2.0-3.0 Higher-intensity Warfarin Therapy 3.0-4.0 PT 12.1 (H) 9.0 - 11.5 sec [facility] Comment: For more information on this test, go to: http://education.[employer]/faq/PCT868 Specimen Blood Narrative Performed At FASTING:NO [facility] FASTING: NO Resulting Agency Comment Performing Organization Information: Site ID: [id number] Name: [facility] Address: [address] [place] [phone] Director: Jj Carrasco Performing Organization Address City/[facility]/Zipcode Phone Number [facility] [address] [place] [address] [facility] CBC with platelet count + automated diff (05/02/2020 1:25 PM CDT)Only the most recent of6 resultswithin the time period is included. WBC 4.3 3.8 - 10.8 Thousand/uL [facility] RBC 2.49 (L) 3.80 - 5.10 Million/uL [facility] Hemoglobin 9.2 (L) 11.7 - 15.5 g/dL [facility] Hematocrit 26.0 (L) 35.0 - 45.0 % [facility] MCV 104.4 (H) 80.0 - 100.0 fL [facility] MCH 36.9 (H) 27.0 - 33.0 pg [facility] MCHC 35.4 32.0 - 36.0 g/dL [facility] RDW 13.2 11.0 - 15.0 % [facility] Platelets 66 (L) 140 - 400 Thousand/uL [facility] MPV 10.9 7.5 - 12.5 fL [facility] # Neutros 2,838 1,500 - 7,800 cells/uL [facility] # Lymphs 757 (L) 850 - 3,900 cells/uL [facility] # Monos 391 200 - 950 cells/uL [facility] # Eos 292 15 - 500 cells/uL [facility] # Baso 22 0 - 200 cells/uL [facility] % Neutros 66 % [facility] % Lymphs 17.6 % [facility] % Monos 9.1 % [facility] % Eos 6.8 % [facility] % Baso 0.5 % [facility] Specimen Blood Narrative Performed At FASTING:NO [facility] FASTING: NO Resulting Agency Comment Performing Organization Information: Site ID: [id number] Name: [facility] Address: [address] [place] [phone] Director: Jj aCrrasco Performing Organization Address City/[facility]/Zipcode Phone Number [facility] [address] [place] [address] [facility] Bilirubin, direct (05/02/2020 1:25 PM CDT)Only the most recent of9 results within the time period is included. Bilirubin, Total 3.5 (H) 0.2 - 1.2 mg/dL [facility] Bilirubin, Direct 1.1 (H) < OR = 0.2 mg/dL [facility] Bilirubin, Indirect 2.4 (H) 0.2 - 1.2 mg/dL (calc) [facility] Specimen Blood Narrative Performed At FASTING:NO [facility] FASTING: NO Resulting Agency Comment Performing Organization Information: Site ID: [id number] Name: [facility] Address: [address] [place] [phone] Director: Jj Carrasco Performing Organization Address City/State/Zipcode Phone Number [facility] [address] [place] [address] [facility] Comprehensive metabolic panel (05/02/2020 1:25 PM CDT)Only the most recent of13 resultswithin the time period is included. Glucose 140 (H) 65 - 139 mg/dL [facility] Comment: Non-fasting reference interval BUN 42 (H) 7 - 25 mg/dL [facility] Creatinine 2.44 (H) 0.50 - 0.99 mg/dL [facility] Comment: For patients >49 years of age, the reference henriquez it for Creatinine is approximately 13% higher for p eople identified as -[place]. eGFR If NonAfricn Am 20 (L) > OR = 60 [facility] mL/min/1.73m2 eGFR If Africn Am 23 (L) > OR = 60 [facility] mL/min/1.73m2 BUN/Creatinine Ratio 17 6 - 22 (calc) [facility] Sodium 134 (L) 135 - 146 mmol/L [facility] Potassium, Serum 4.5 3.5 - 5.3 mmol/L [facility] Chloride 105 98 - 110 mmol/L [facility] Carbon Dioxide, Total 22 20 - 32 mmol/L [facility] Calcium, Serum 10.3 8.6 - 10.4 mg/dL [facility] Protein, Total, Serum 5.6 (L) 6.1 - 8.1 g/dL [facility] Albumin 3.2 (L) 3.6 - 5.1 g/dL [facility] GLOBULIN (QUEST) 2.4 1.9 - 3.7 g/dL [facility] (calc) Albumin Globulin Ratio 1.3 1.0 - 2.5 (calc) [facility] Bilirubin, Total 3.5 (H) 0.2 - 1.2 mg/dL [facility] Alkaline Phosphatase, S 90 37 - 153 U/L [facility] AST (SGOT) 27 10 - 35 U/L [facility] ALT (SGPT) 12 6 - 29 U/L [facility] Specimen Blood Narrative Performed At FASTING:NO [facility] FASTING: NO Resulting Agency Comment Performing Organization Information: Site ID: [id number] Name: [facility] Address: [address] [place] [phone] Director: Jj Carrasco Performing Organization Address City/State/Zipcode Phone Number [facility] [address] [place] [address] [facility] XR dxa bone density study (04/11/2020 11:51 AM CDT) Specimen Narrative Performed At FINAL REPORT [facility] [employer] Bone density study, 04/11/2020 Clinical History:Screening Bone [...] MD Report Verified Date/Time:04/11/2020 13:34:32 Reading Location: [address] Room Procedure Note Interface, External Ris In [...] Verified Date/Time: 04/11/2020 1 3:34:32 Reading Location: [address] Room Performing Organization Address City/State/Zipcode Phone Number RIS CBC with platelet count + automated diff (04/11/2020 11:13 AM CDT)Only the most recent of16 resultswithin the time period is included. WBC 3.5 3.5 - 10.5 K/L [facility] RBC 2.51 (L) 3.93 - 5.22 M/L [facility] Hemoglobin 9.4 (L) 11.2 - 15.7 GM/DL [facility] Hematocrit 30.2 (L) 34.1 - 44.9 % [facility] MCV 120.3 (H) 79.4 - 94.8 fL [facility] MCH 37.5 (H) 25.6 - 32.2 pg [facility] MCHC 31.1 (L) 32.2 - 35.5 GM/DL [facility] RDW 14.6 (H) 11.7 - 14.4 % [facility] Platelets 57 (L) 150 - 450 K/CU MM [facility] MPV 10.4 9.4 - 12.3 fL [facility] nRBC 0 0 - 0 /100 WBC [facility] % Neutros 60 % [facility] % Lymphs 19 % [facility] % Monos 12 % [facility] % Eos 8 % [facility] % Baso 1 % [facility] # Neutros 2.09 1.56 - 6.13 K/L [facility] # Lymphs 0.67 (L) 1.18 - 3.74 K/L [facility] # Monos 0.43 (H) 0.24 - 0.36 K/L [facility] # Eos 0.28 0.04 - 0.36 K/L [facility] # Baso 0.02 0.01 - 0.08 K/L [facility] Immature 0 0 - 1 % [facility] Granulocytes-Relative MEDICAL CE [facility]TER Specimen Blood Performing Organization Address City/State/Zipcode Phone Number [facility] [address] [place] [address] CENTER Alpha fetoprotein (AFP), tumor marker (04/11/2020 11:13 AM CDT)Only the most recent of3 resultswithin the time period is included. [facility]-Fetoprotein <2.0 <10.0 ng/mL [facility] Specimen Blood Narrative Performed At Chief Port Director ID - BS [facility] Performing Organization Address City/State/Zipcode Phone Number [facility] [address] [place] [address] CENTER Miscellaneous lab test (02/15/2020 12:29 PM CDT)Only the most recent of2 results within the time period is included. Scan Result [facility] Specimen Blood Narrative Performed At This result has an attachment that is no t available. Performing Organization Address City/State/Zipcode Phone Number [facility] [address] [place], [place] Magnesium (02/15/2020 12:29 PM CDT)Only the most recent of13 resultswithin the time period is included. Magnesium 1.8 1.6 - 2.6 mg/dL [facility] Specimen Blood Narrative Performed At Chief Port Director ID - LM [facility] Performing Organization Address City/[facility]/Zipcode Phone Number [address] [address] [place] RHYTHM STRIP - SCAN (01/27/2020 10:00 AM [...] perfo rmance characteristics have been determined by [facility]. It has not been cleared or approved by FDA. This assay has been validated pursuant to the CLIA regulations and is used for clinical purposes. Normetanephrine 213 (H) < OR = 148 pg/mL [facility] Comment: INCORPORATED This test was developed and its analytical perfo rmance characteristics have been determined by [employer] [facility]. It has not been cleared or approved [...] 2008. For additional information, please refer to http://education.[employer]/faq/MetFra ctFree (This link is being provided for informational/e ducational purposes only.) This test was developed and its analytical perfo rmance characteristics have been determined by [facility]. It has not been cleared or approved by FDA. This assay has been validated pursuant to the CLIA regulations and is used for clinical purposes. Specimen Blood Narrative Performed At Performing Lab [facility] [address] [place] [address] Mark Encarnacion MD, PhD, AMINA Performing Organization Address City/State/Zipcode Phone Number [facility] [address] INCORPORATED [address] [facility] Calcium, Ionized (01/26/2020 3:50 AM CDT)Only the most recent of7 resultswithin the time period is included. Calcium, Ion 1.11 (L) 1.12 - 1.27 mmol/L [facility] pH, Blood 7.41 [facility] Specimen Blood Performing Organization Address City/[facility] Phone Number [facility] [address] [place] [address] CENTER Phosphorus (01/26/2020 3:50 AM CDT)Only the most recent of7 resultswithin the time period is included. Phosphorus 3.2 2.3 - 4.7 mg/dL [facility] Specimen Blood Narrative Performed At Chief Port Director ID - BS [facility]ENTER Performing Organization Address [facility] Phone Number [address] [address] CENTER Hepatic function panel (01/26/2020 3:50 AM CDT)Only the most recent of13 resultswithin the time period is included. Protein, Total 5.7 (L) 6.0 - 8.3 gm/dL [facility] Albumin 3.4 (L) 3.5 - 5.0 g/dL [facility] Total Bilirubin 6.9 (H) 0.2 - 1.2 mg/dL [facility] Bilirubin, Direct 2.2 (H) 0.1 - 0.5 mg/dL [facility] Alkaline Phosphatase 58 40 - 150 U/L [facility] AST 36 (H) 5 - 34 U/L [facility] ALT 13 6 - 55 U/L [facility] Specimen Blood Narrative Performed At Chief Port Director ID - BS [facility] Specimen moderately icteric Performing Organization Address City/[facility]/Zipcode Phone Number [address] [address] CENTER Manual Differential (01/25/2020 3:47 AM CDT)Only the most recent of7 results within the time period is included. % Neutros 66 % [facility] % Lymphs 24 % [facility] % Monos 7 % [facility] % Eos 2 % [facility] % Metamyelo 1 (H) 0 - 0 % [facility] # Neutros 0.92 (L) 1.56 - 6.13 K/ul [facility] # Lymphs 0.34 (L) 1.18 - 3.74 K/ul [facility] # Monos 0.10 (L) 0.24 - 0.36 K/uL [facility] # Eos 0.03 (L) 0.04 - 0.36 K/uL [facility] # Metamyelo 0.01 (H) 0.00 - 0.00 K/uL [facility] Total Counted [address] [facility] Smudge Cells Present [facility] Giant Platelet Present [facility] Anisocytosis 2+ moderate [facility] Macrocytes 2+ moderate [facility] Poikilocytes 2+ moderate [facility] Freddie Cells 2+ moderate [facility] Artifact Present [facility] Platelet Conc Decreased [facility] Specimen Blood Narrative Performed At Chief Port Director ID - [id number] [facility] Chief Port Director ID - Maria Del Carmen Silvio User comments: Slide comments: Performing Organization Address City/State/Zipcode Phone Number [facility] [address] [place] [address] CENTER Basic Metabolic Panel (01/25/2020 3:47 AM CDT)Only the most recent of10 results within the time period is included. Sodium 140 136 - 145 meq/L [facility] Potassium 3.4 (L) 3.5 - 5.1 meq/L [facility] Chloride 105 98 - 107 meq/L [facility] CO2 25 22 - 29 meq/L [facility] BUN 31 (H) 7 - 21 mg/dL [facility] Creatinine 2.35 (H) 0.57 - 1.25 mg/dL [facility] Glucose 108 (H) 70 - 105 mg/dL [facility] Calcium 8.7 8.4 - 10.2 mg/dL [facility] EGFR 21Comment: ESTIMATED GFR IS mL/min/1.73 sq m [facility] NOT ACCURATE CREATININE [facility] CLEARANCE IN PREDICTING GLOMERULAR FILTRATION RATE. ESTIMATED GFR IS NOT APPLICABLE FOR DIALYSIS PATIENTS. Specimen Blood Narrative Performed At Chief Port Director ID - PIAYA L [facility] Specimen moderately icteric Performing Organization Address City/State/Zipcode Phone Number [facility] [address] [place] [address] CENTER TRANSFUSION SERVICE REPORT - [...] CDT) Narrative Performed At Epifanio Giles RRT, BOX SEALING MACHINE CATCHER 2019 10:52 AM [facility] PFT CHARTING REPORT Infection Control/Hand Hygiene procedure s followed throughout the encounter with patient: Yes Patient Identification Method: Patient n celia verified on armband, and Medical record on armband, Is the order complete?: Yes Account ID#: [id number] Patient Name: Cici Calderon Birthdate: 1955 Age: [...] CDT) Narrative Performed At Epifanio Giles RRT, BOX SEALING MACHINE CATCHER 2019 10:52 AM [facility] PFT CHARTING REPORT Infection Control/Hand Hygiene procedure s followed throughout the encounter with patient: Yes Patient Identification Method: Patient n celia verified on armband, and Medical record on armband, Is the order complete?: Yes Account ID#: [id number] Patient Name: Cici Calderon Birthdate: 1955 Age: [...] CDT) Narrative Performed At Epifanio Giles RRT, [facility] 2019 10:52 AM [facility] PFT CHARTING REPORT Infection Control/Hand Hygiene procedure s followed throughout the encounter with patient: Yes Patient Identification Method: Patient n celia verified on armband, and Medical record on armband, Is the order complete?: Yes Account ID#: [id number] Patient Name: Cici Calderon Birthdate: 1955 Age: [...] CDT) Narrative Performed At Janina Meehan RRT, [facility] 20192:39 PM [facility] PFT CHARTING REPORT Infection Control/Hand Hygiene procedure s followed throughout the encounter with patient: Yes Patient Identification Method: Patient n celia verified on armband, and Medical record on armband, Is the order complete?: Account ID#: [id number] Patient Name: Cici Calderon Birthdate: 1955 Age: [...] ABO A Pos [place] UNIT NUMBER [id number] [place] Status TX_TIMEINCHART [place] Blood Bank Product RED BLOOD CELLS [place] PRODUCT CODE [id number] [place] Specimen Other Performing Organization Address [facility] Phone Number [place] B-type Natriuretic Factor (BNP) (01/23/2020 4:32 AM CDT)Only the most recent of 2 resultswithin the time period is included. BNP 2,179 (H) 0 - 100 pg/mL [facility] CENTER Specimen Blood Narrative Performed At Chief Port Director ID - PIAYA L [facility] MED ICAL CENTER Performing Organization Address [facility] Phone Number [facility] MEDICAL [address] [place] [address] CENTER Prepare Leuko-Red PLT (01/22/2020 11:54 PM CDT)Only the most recent of2 results within the time period is included. Unit ABO A Pos SAFETRACE TX UNIT NUMBER [id number] SAFETRACE [place] Status WORK IN PROGRESS SAFETRACE [place] Blood Bank Product PLATELETS SAFETRACE TX PRODUCT CODE [id number] SAFETRACE TX Unit ABO O Pos SAFETRACE TX UNIT NUMBER [id number] SAFETRACE TX Status TX_TIMEINCHART SAFETRACE [place] Blood Bank Product PLATELETS SAFETRACE [place] PRODUCT CODE [id number] S[place]ACE [place] Specimen Blood Performing Organization Address [facility] Phone Number SAF[place]ACE [place] Transfuse Leuko-Red RBC (01/22/2020 2:30 PM CDT)Only the most recent of4 resultswithin the time period is included.Cortisol (01/22/2020 8:23 AM CDT)Only the most recent of2 resultswithin the time period is included. Cortisol, Total 1.6 (L) 3.7 - 19.4 ug/dL [facility] Specimen Blood Narrative Performed At Chief Port Director ID - PIAYA L [facility] MED ICAL CENTER Performing Organization Address [facility] Phone Number [address] [address] CENTER ABORH, manual (01/22/2020 4:34 AM CDT) ABO Grouping A [facility] Rh Factor POS [facility] Specimen Blood Performing Organization Address [facility] Phone Number [address] [address] Direct AHG (RAMIREZ)/Direct Jewel (01/22/2020 4:34 AM CDT) Direct AHG-IGG NEGATIVE [facility] Direct AHG-C3B, C3D NEGATVIE [facility] Specimen Blood Performing Organization Address [facility] Phone Number [address] [address] Body fluid culture + gram stain (01/21/2020 4:54 PM CDT) Result No growth [facility] Gram Stain Result <1+ White blood cells seen [facility] Gram Stain Result No organisms seen [facility] Specimen Body Fluid Performing Organization Address [facility] Phone Number [address] [address] CENTER Body fluid cell count with differential (01/21/2020 4:54 PM CDT) Appearance Hazy (A) Clear [facility] Color Cele (A) Colorless, Straw [facility] RBCs 4,000 (H) <=1 /cu mm [facility] Adjusted WBC Count 86 (H) <=5 /cu mm [facility] Lining Cells 1 <=1 /cu mm [facility] % Segs 7 % [facility] % Lymphs 83 % [facility] % Monos 10 % [facility] % Eos 0 % [facility] % Baso 0 % [facility] Container Body Fluid Sterile Vial [facility] Specimen Body Fluid Performing Organization Address City/State/Zipcode Phone Number [facility] [address] [place] [address] [facility] paracentesis (01/21/2020 4:40 PM CDT) Specimen Narrative Performed At FINAL REPORT [employer] Ultrasound guided paracentesis Clinical History:Ascites. Sedation: None. Asl Interpreter: Christine Ward PA-C Supervising Physician: Natan Chisholm MD [employer] Processor:None. Estimated Blood Loss: < 1 mL. Specimen: [...] anesthesia was achieved with lidocaine, a 5 Palestinian one-step catheter was advanced into the peritoneal cavity under ultrasound guidance. After completion of drainage, the cathet er was removed. There was no evidence of complication. Impression: Successful ultrasound guided paracentesi s. Signed: Natan Chisholm MD Report Verified Date/Time:01/24/2020 09:43:05 Reading Location[facility] P006J [facility] Reading Room Procedure Note Interface, External Ris In - 01/24/2020 9:45 AM CDT FINAL REPORT Ultrasound guided paracentesis Clinical History: Ascites. Sedation: None. Asl Interpreter: Christine Ward PA-C Supervising Physician: Natan Chisholm MD [employer] Processor: None. Estimated Blood Loss: < 1 mL. [...] anesthesia was achieved with lidocaine, a 5 Palestinian one-step catheter was advanced into the peritoneal cavity under ultrasound guidance. After completion of drainage, the cathet er was removed. There was no evidence of complication. Impression: Successful ultrasound guided paracentesi s. Signed: Natan Chisholm MD Report Verified Date/Time: 01/24/2020 0 9:43:05 Reading Location: [facility] [id number] [facility] Reading Room Performing Organization Address City/State/Zipcode Phone Number RIS Peripheral Blood Smear - Hold only (01/21/2020 9:31 AM CDT) Peripheral Smear Save saved [facility] Specimen Blood Performing Organization Address City/State/Zipcode Phone Number [address] [address] CENTER Reticulocyte count (01/21/2020 9:31 AM CDT)Only the most recent of2 results within the time period is included. % Retic 5.3 (H) 0.5 - 1.7 % [facility] CENTER Specimen Blood Narrative Performed At Chief Port Director ID - [id number] [facility] MED ICAL CENTER Performing Organization Address City/State/Zipcode Phone Number [facility] [address] [place] [address] CENTER XR chest 1 view portable / bedside (01/21/2020 9:10 AM CDT)Only the most recent of2 resultswithin the time period is included. Specimen Narrative Performed At FINAL REPORT GE RIS INDICATION: Edema COMPARISON: January 20, 2020 [...] MD Report Verified Date/Time:01/21/2020 10:03:32 Reading Location: [facility] y Reading Room Procedure Note Interface, External [...] Verified Date/Time: 01/21/2020 1 0:03:32 Reading Location: [employer] Reading Room Performing Organization Address [facility] Phone Number GE RIS Metanephrines, 24 hour urine (01/20/2020 10:51 PM CDT) TOTAL VOLUME 1000 mL [facility] Metanephrine 205 90 - 315 [facility] Comment: mcg/24 h INCORPORATED This test was developed and its analytical perfo rmance characteristics have been determined by [facility]. It has not been cleared or approved by FDA. This assay has been validated pursuant to the CLIA regulations and is used for clinical purposes. Normetanephrine 657 122 - 676 [facility] Comment: mcg/24 h INCORPORATED This test was developed and its analytical perfo rmance characteristics have been determined by [facility]. It has not been cleared [...] perfo rmance characteristics have been determined by [facility]. It has not been cleared or approved by FDA. This assay has been validated pursuant to the CLIA regulations and is used for clinical purposes. Specimen Urine Narrative Performed At Performing Lab [facility] [employer] [employer] [address] [place] [address] I Shashank ADRIAN, PhD, AMINA Performing Organization Address [facility] Phone Number [facility] [address] INCORPORATED [address] [facility] Catecholamines, Fractionated, 24hr urine (01/20/2020 10:51 [...] perfo rmance characteristics have been determined by [employer] [facility]. It has not been cleared or approved by FDA. This assay has been validated pursuant to the CLIA regulations and is used for clinical purposes. Norepinephrine 9 (L) 15 - 100 mcg/24 [facility] Comment: h INCORPORATED This test was developed and its analytical perfo rmance characteristics have been determined by [employer] [facility]. It has not been cleared or approved by FDA. This assay has been validated pursuant to the CLIA regulations and is used for clinical purposes. Calculated Total E+Ne 9 (L) 26 - 121 mcg/24 [facility] Comment: h INCORPORATED This test was developed and its analytical perfo rmance characteristics have been determined by [employer] [facility]. It has not been cleared [...] perfo rmance characteristics have been determined by [employer] [facility]. It has not been cleared or approved by FDA. This assay has been validated pursuant to the CLIA regulations and is used for clinical purposes. Creatinine,24 Hr Urin 0.88 0.50 - 2.15 [facility] g/24 h INCORPORATED Specimen Urine Narrative Performed At Performing Lab [facility]Z [employer] [facility] [address] [place] [address] Mark Encarnacion MD, PhD, AMINA Performing Organization Address City/State/Zipcode Phone Number [employer] [place] [address] [address] Type and screen, automated (01/20/2020 8:39 PM CDT)Only the most recent of2 resultswithin the time period is included. ABO/RH AUTOMATED (BEAKER) A POSITIVE [facility] Ab Scrn NEGATIVE [facility] Specimen Blood Performing Organization Address City/State/Zipcode Phone Number [facility] [address] [place] [address] MR abdomen without IV contrast (01/20/2020 5:54 PM CDT) Specimen Narrative Performed At FINAL REPORT [facility] TECHNIQUE: MRI of the abdomen WITHOUT in [...] MD Report Verified Date/Time:01/21/2020 07:51:30 Reading Location: [facility] Reading Room - [place] [id number] Procedure Note Interface, External Ris In [...] Verified Date/Time: 01/21/2020 0 7:51:30 Reading Location: [facility] Reading Room - [place] [address] Performing Organization Address City/State/Zipcode Phone Number GE RIS Urinalysis w/Microscopic + Reflex to Culture (01/19/2020 11:19 PM CDT) Color, UA Yellow [facility] Clarity, UA Hazy [facility] Specific [place], UA 1.017 1.001 - 1.035 [facility] pH, UA 5.5 5.0 - 8.[address] [facility] Protein, UA 20 mg/dL (A) Negative [facility] Glucose, UA Negative Negative [facility] Ketones, UA Negative Negative [facility] Bilirubin, UA Negative Negative [facility] Blood, UA Small (A) Negative [facility] Nitrite, UA Negative Negative [facility] Leukocytes, UA Trace (A) Negative [facility] Urobilinogen, UA 0.2 0.2 - 1.0 mg/dL [facility] RBC, UA 1 /HPF [facility] WBC, UA 3 /HPF [facility] Bacteria, UA Rare [facility] Squam Epithel, UA 3 /HPF [facility] Hyaline Casts, UA 3 /LPF [facility] Specimen Source [facility] Specimen Urine Performing Organization Address City/State/Zipcode Phone Number [address] [address] CENTER Sodium, random urine (01/19/2020 11:19 PM CDT)Only the most recent of3 results within the time period is included. Sodium Urine <20 meq/L [facility] Specimen Urine Narrative Performed At Reference Range: No Normals [facility] Chief Port Director ID - MITCH Linares Performing Organization Address City/State/Zipcode Phone Number [facility] [address] [place] [address] CENTER Urinalysis w/Microscopic (01/19/2020 11:19 PM CDT)Only the most recent of2 resultswithin the time period is included. Color, UA Yellow [facility] Clarity, UA Hazy [facility] Specific [place], UA 1.017 1.001 - 1.035 [facility] pH, UA 5.5 5.0 - 8.[address] [facility] Protein, UA 20 mg/dL (A) Negative [facility] Glucose, UA Negative Negative [facility] Ketones, UA Negative Negative [facility] Bilirubin, UA Negative Negative [facility] Blood, UA Small (A) Negative [facility] Nitrite, UA Negative Negative [facility] Leukocytes, UA Trace (A) Negative [facility] Urobilinogen, UA 0.2 0.2 - 1.0 mg/dL [facility] RBC, UA 1 /HPF [facility] WBC, UA 3 /HPF [facility] Bacteria, UA Rare [facility] Squam Epithel, UA 3 /HPF [facility] Hyaline Casts, UA 3 /LPF [facility] Specimen Source [facility] Specimen Urine Narrative Performed At Chief Port Director ID - [auto] [facility] Chief Port Director ID - tech Performing Organization Address City/State/Zipcode Phone Number [facility] [address] [place] [address] CENTER Blood Culture - Routine (Right Venipuncture) (01/19/2020 9:45 PM CDT)Only the most recent of4 resultswithin the time period is included. Result No growth in [address] [facility] Specimen Blood Performing Organization Address City/[facility]/Zipcode Phone Number [facility] [address] [place] [address] [place] [id number] PHENOTYP (01/19/2020 9:43 PM CDT) Specimen Blood Narrative Performed At This result has an attachment that is no t available. Performing Organization Address City/[facility] Phone Number [facility] [address] [place], [place] Blood gas, arterial (01/19/2020 3:44 PM CDT) pH, Arterial 7.42 7.35 - 7.45 [facility] pCO2, Arterial 36 35 - 45 mmHg [facility] pO2, Arterial 78 (L) 80 - 90 mmHg [facility] O2 Sat, Arterial 96.2 96.0 - 97.0 % [facility] HCO3, Arterial 23 21 - 29 mmol/L [facility] Base Excess, Arterial -1.9 -2.0 - 3.0 mmol/L [facility] Patient Temperature 36.[address] [facility] FIO2 28.0 % [facility] Specimen Blood, Arterial Performing Organization Address [facility]/Zipcode Phone Number [facility] [address] [place] [address] [place] Cryptococcal antigen (01/19/2020 3:04 PM CDT) Cryptococcal Antigen, Serum Negative Negative, Interferen ce [facility] Specimen Blood Performing Organization Address [facility]/Zipcode Phone Number [facility] [address] [place] [address] CENTER Rubeola antibody IgG (01/19/2020 [...] patient. For additional information, please refer to http://education.SurveyMonkey/faq/URT965 (This link is being provided for informational/ educational purposes only.) Specimen Blood Narrative Performed At Performing Lab [facility] *QDID [employer] [facility] Infectious [facility] [address] [place] [id number] Sudhakar Hargrove MD Performing Organization Address [facility] Phone Number [facility] [place] [address] INCORPORATED [address] [facility] Rubella antibody, IgG (01/19/2020 3:04 PM CDT) Rubella IgG Quant 127.0 (H) <8.0 IU/mL [facility] Specimen Blood Narrative Performed At Rubella IgG Result Interpretation: [facility] </= 7.0 IU/mL Negative - Presumed non-immune 8.0 - 9.9 IU/mL Equivocal >= 10.0 IU/mL Positive - Presumed immune Performing Organization Address [facility]/Zipcode Phone Number [facility] [address] [place] [address] CENTER Varicella zoster antibody, IgG (01/19/2020 3:04 PM CDT) Varicella IgG 3.6 [facility] Specimen Blood Narrative Performed At VARICELLA ZOSTER RESULT INTERPRETATIONS: [facility] <=0.8 AlNonreactive:Presumed non-immune to VZV 0.9-1.0 AlEquiv ocal >=1.1 AlReactive:Presumed immune to VZV Performing Organization Address City/State/Zipcode Phone Number [facility] [address] [place] [address] CENTER Mumps antibody, IgG (01/19/2020 [...] At Performing Lab [facility] *QDID [employer] [facility] [address] [place] [address] Sudhakar Hargrove MD Performing Organization Address City/[facility] Phone Number [facility] [place] [address] INCORPORATED [address] [facility] US breast bilateral (01/19/2020 9:10 AM CDT) Specimen Narrative Performed At FINAL REPORT [employer] COMPLETE ULTRASOUND OF BOTH BREASTS AND AXILLA: 01/19/2020 Color flow and real-time ultrasound of b h breasts four quadrants, retroareolar, and axilla regions [...] MD Report Verified Date/Time:01/19/2020 09:52:28 Reading Location: [address] Mammo Re ading Room Procedure Note [...] Verified Date/Time: 01/19/2020 0 9:52:28 Reading Location: [address] Mammo Re ading Room Performing Organization Address [facility] Phone Number RIS Aldosterone (01/19/2020 4:11 AM CDT) Aldosterone 22 ng/dL [facility] Comment: Adult Reference Ranges for Aldosterone: Upright 8:00-10:00 am< or = 28 ng/d L Upright 4:00-6:00 pm < or = 21 ng/d L Supine8:00-10:00 am3-16 ng/dL This test was developed and its analytical perfo rmance characteristics have been determined by [employer] [facility]. It has not been cleared or approved by FDA. This assay has been validated pursuant to the CLIA regulations and is used for clinical purposes. Specimen Blood Narrative Performed At Performing Lab [facility] [employer] [address] [place] [address] Mark Encarnacion MD, PhD, AMINA Performing Organization Address [facility] Phone Number [facility] [address] INCORPORATED [address] [facility] Renin, plasma (01/19/2020 4:11 AM CDT) PRA,LC/MS/MS 1.51 0.25 - 5.82 [facility] Comment: ng/mL/h INCORPORATED This test was developed and its analytical perfo rmance characteristics have been determined by [employer] [facility]. It has not been cleared or approved by FDA. This assay has been validated pursuant to the CLIA regulations and is used for clinical purposes. Specimen Blood Narrative Performed At Performing Lab [facility] [employer] [facility] [address] [place] [address] Mark Encarnacion MD, PhD, AMINA Performing Organization Address City/State/Zipcode Phone Number [facility], [place] [address] INCORPORATED [address] [facility] [address] abdomen without IV contrast (01/19/2020 12:40 AM CDT) Specimen Narrative Performed At FINAL REPORT [employer] TECHNIQUE: CT of the abdomen WITHOUT int [...] MD Report Verified Date/Time:01/19/2020 08:09:04 Reading Location: [facility] Inaika Reading Room - [place] [address] Procedure Note Interface, External Ris In - [...] Verified Date/Time: 01/19/2020 0 8:09:04 Reading Location: [facility] [employer] Reading Room - [place] [address] Performing Organization Address City/State/Zipcode Phone Number [facility] [employer] US renal complete (01/19/2020 12:20 AM CDT) Specimen Narrative Performed At FINAL REPORT [facility] [employer] Ultrasound of the Kidneys Clinical History:Re-examine L [...] Date/Time: 01/19/2020 0 1:26:[address] [facility] Phone Number RIS Protein, random urine (01/18/2020 8:49 PM CDT) Protein, Urine 45 (H) 0 - 14 mg/dL [facility] Specimen Urine - Urine, Sterile Collection Narrative Performed At Chief Port Director ID - EDWIN B [facility] MED ICAL CENTER Performing Organization Address [facility] Phone Number [address] [address] [place] Creatinine, random urine (01/18/2020 8:49 PM CDT)Only the most recent of2 resultswithin the time period is included. Creatinine, Ur 181.3 mg/dL [facility] Specimen Urine - Urine, Sterile Collection Narrative Performed At Reference Range: No Normals [facility] Chief Port Director ID - EDWIN B Performing Organization Address [facility] Phone Number [address] [address] [place] Eosinophil smear (01/18/2020 8:49 PM CDT) Eosinophil Smear Rare EOS =less than 5% No EOS seen [facility] WBCs seen are EOS (A) MEDICAL CE NTER Specimen Urine - Urine, Sterile Collection Performing Organization Address [facility] Phone Number [address] [address] [place] Myocardial Perfusion Pet/CT (Rest & Stress) (01/18/2020 9:20 AM CDT) Specimen Narrative Performed At FINAL REPORT GE RIS PROCEDURE: MYOCARDIAL PERFUSION PET IMAG ING (Rest/Stress) CPT CODE: 16102 INDICATION: Evaluation for liver transpl ant CARDIOVASCULAR [...] MD Report Verified Date/Time:01/18/2020 12:45:40 Reading Location: [address] Med Reading Room Procedure Note Interface, External Ris In - 01/18/2020 12:47 PM CDT FINAL REPORT PROCEDURE: MYOCARDIAL PERFUSION PET IMAG ING (Rest/Stress) CPT CODE: [id number] INDICATION: Evaluation for liver transpl ant CARDIOVASCULAR [...] Verified Date/Time: 01/18/2020 1 2:45:40 Reading Location: [address] [id number] [facility] Reading Room Performing Organization Address City/State/Zipcode Phone [...] Exercise midodrine Confirmed by fellow Bc Chávez ([id number]) o n 01/18/2020 9:20:19 AM Confirmed by [...] Exercise midodrine Confirmed by fellow Bc Chávez ([id number]) o n 01/18/2020 9:20:19 AM Confirmed by Shaq GARCIA MICHAEL ([id number]) on 01/19/2020 7:03:55 AM Performing Organization Address City/State/[facility] Phone Number [employer] MUSE ECG 12 lead (01/18/2020 8:46 AM CDT)Only the most recent of2 resultswithin the time period is included. Specimen Narrative Performed At Ventricular Rate 62 BPM GE MUSE Atrial Rate 62 BPM P-R Interval 138 ms QRS Duration 86 ms Q-T Interval 452 ms QTC Calculation(Bazett) 458 ms P [place] 59 degrees R [place] 32 degrees T [place] 56 degrees Normal sinus rhythm Low voltage [...] 452 ms QTC Calculation(Bazett) 458 ms P [place] 59 degrees R [place] 32 degrees T [place] 56 degrees Normal sinus rhythm Low voltage QRS Nonspecific ST abnormality 17 JAN 2020 11:05 Nonspecific T wave abnormality Nonspecif ic T wave abnormality, improved in QT has shortened Confirmed by MD FARHAT, JESSIE ([id number]) on 01/18/2020 2:19:38 PM Performing Organization Address City/[facility] Phone Number GE MUSE T Spot TB [...] is no t available. Performing Organization Address City/State/[facility] Phone Number [facility] [address] [place] [address] [address] REPORT OF PROCEDURE - ENDOSCOPY URL (01/17/2020 9:11 AM CDT) Narrative Performed At This result has an attachment that is no t available. REPORT OF PROCEDURE - ENDOSCOPY URL (01/17/2020 8:39 AM CDT) Narrative Performed At This result has an attachment that is no t available. Tissue Exam (01/17/2020 8:15 AM CDT) Case Report Surgical Pathology Report Case: [id number] [facility] Authorizing Provider:Sylvie Larry MDCollected: 01/17/2020 08:15 AM MEDICAL CENTER Ordering Location: [address] Received:01/17/2020 01:50 PM Service Pathologist: Humaira Mendez MD Specimen:Duodenum, biopsy ADDENDUM THIS ADUODENUMIS ISSUED TO R EPORT THE FINDINGS IN THE DEEPER LEVELS OF THE BIOPSY AND GIVE THE FINAL DIAGNOSIS: [facility] DUODENUM, ENDOSCOPIC BIOPSY: - ECTATIC VESSELS IN THE LAMINA PROPRIA, SUGGE STIVE OF PORTAL DUODENOPATHY - NO FEATURES OF CELIAC DISEASE SEEN - NO GRANULOMAS, DYSPLASIA OR MALIGNANCY SEEN DIAGNOSIS DUODENUM, ENDOSCOPIC BIOPSY: [facility] - SUPERFICIAL FRAGMENTS OF SMALL BOWEL MUCOSA WITH GASTRIC FOVEOLAR METAPLASIA [facility] Signing Pathologist Direct Phone Line: CPT Code(s) 09598 [facility] CLINICAL HISTORY Procedure: upper endoscopy, biopsy and colonosc opy [facility] Pre and postop diagnosis: anemia MEDICAL CENTER SPECIMEN SOURCE A. Duodenum; biopsy [facility] GROSS DESCRIPTION A. The specimen is received [facility] in formalin labeled with MEDICAL CENTER the patient's name, accession number and "duodenum" and consists of one garduno-pink mucosal-covered pieces of tissue measuring 0.3 x 0.2 x 0.1 cm. The specimen is submitted entirely following filtration in a cassette A1. HS/pl MICROSCOPIC DESCRIPTION PERFORMED [facility] Specimen Tissue Performing Organization Address City/State/Zipcode Phone Number [facility] [address] [place] [address] CENTER Lactate dehydrogenase (LDH) (01/16/2020 12:24 PM CDT) LDH 250 (H) 125 - 220 U/L [facility] Specimen Blood Narrative Performed At Chief Port Director ID - TUAN Mera [facility] Performing Organization Address City/State/Zipcode Phone Number [address] [address] [place] Vitamin B12 and Folate (01/16/2020 11:25 AM CDT) Vitamin B12 1,107 (H) 213 - 816 pg/mL [facility] Folate 3.40 (L) >=7.00 ng/mL [facility] Specimen Blood Narrative Performed At Chief Port Director ID - ESTHER [facility] Performing Organization Address [facility] Phone Number [address] [address] [place] HIV-1 Antigen with HIV-1/2 Antibody (01/16/2020 11:25 AM CDT) HIV-1 Antigen with HIV 1&2 Nonreactive Nonreactive [facility] Antibody MEDICAL CENTER Specimen Blood Narrative Performed At Chief Port Director ID - TUAN Mera [facility] Performing Organization Address City/[facility] Phone Number [address] [address] [place] Haptoglobin (01/16/2020 11:25 AM CDT) Haptoglobin <8 (L) 14 - 258 mg/dL [facility] Specimen Blood Narrative Performed At Chief Port Director ID - TUAN Mera [facility] Performing Organization Address City/[facility]/Zipcode Phone Number [address] [address] CENTER US abdominal with doppler (01/16/2020 6:30 AM CDT) Specimen Narrative Performed At FINAL REPORT [employer] ULTRASOUND ABDOMEN COMPLETE, ULTRASOUND DUPLEX DOPPLER HISTORY: Cirrhosis, liver transplant shama luation COMPARISON: CT abdomen of 05/02/2017 TECHNIQUE: Real-time ultrasound of the a bdomen was performed. Examination included spectral and color- [...] MD Report Verified Date/Time:01/16/2020 07:32:01 Reading Location: [address] Reading Room Procedure Note Interface, External [...] Verified Date/Time: 01/16/2020 0 7:32:01 Reading Location: [address] Reading Room Performing Organization Address City/[facility]/Zipcode Phone Number [employer] Drug screen, urine, transplant (01/15/2020 9:52 PM CDT) Specimen Urine Narrative Performed At This result has an attachment that is no t available. Performing Organization Address City/[facility]/Zipcode Phone Number [address] [phone] Blood typing, automated - - at seperate draw time from initial type and screen (01/15/2020 6:16 PMCDT) ABO/RH AUTOMATED (KIRK) A POSITIVE [facility] Specimen Blood Performing Organization Address City/[facility]/Zipcode Phone Number [facility] [address] [place] [address] CT chest without IV contrast (01/15/2020 5:54 PM CDT) Specimen Narrative Performed At FINAL REPORT GE [employer] CT of the chest, without contrast Clinical [...] MD Report Verified Date/Time:01/15/2020 17:57:54 Reading Location: [address] Reading Room Procedure Note Interface, External [...] Verified Date/Time: 01/15/2020 1 7:57:54 Reading Location: [place] [id number] Ortho Con sult Reading Room Performing Organization Address City/State/Zipcode Phone Number [employer] XR chest 2 views (01/15/2020 4:57 PM CDT) Specimen Narrative Performed At FINAL REPORT [employer] History: Cirrhosis, liver transplant shama luation Comparison: [...] Reading Location: [facility] [id number] Transitio nal Reading Room Procedure Note Interface, External Ris [...] Verified Date/Time: 01/15/2020 1 7:16:49 Reading Location: [address] Reading Room Performing Organization Address [facility] Phone Number RIS XR mandible min 4 [...] MD Report Verified Date/Time:01/15/2020 17:22:12 Reading Location: [address] Reading Room Procedure Note Interface, External [...] Verified Date/Time: 01/15/2020 1 7:22:12 Reading Location: [address] Reading Room Performing Organization Address [facility]/Zipcode Phone Number RIS Mitochondria M2 Antibody (IgG) (01/15/2020 4:17 PM CDT) Mitochondria M2 Ab <20.0 See Note: U [facility] Comment: Reference Range: NEGATIVE:< OR = 20.0 EQUIVOCAL: 20.1-24.9 POSITIVE:> OR = 25.0 Specimen Blood Narrative Performed At Performing Lab [facility] [address] [place] [address] Mark Encarnacion MD, PhD, AMINA Performing Organization Address City/State/Zipcode Phone Number [facility] [place] [address] [facility] [address] [facility] Iron, TIBC, % sat. (without ferritin) (01/15/2020 4:17 PM CDT) Iron 144.0 40.0 - 160.0 ug/dL [facility] TIBC 129 (L) 250 - 450 ug/dL [facility] Iron % Saturation 112 (H) 20 - 55 % [facility] Specimen Blood Narrative Performed At Chief Port Director ID - DB [facility] Performing Organization Address [facility] Phone Number [address] [address] [place] Hepatitis C antibody (01/15/2020 4:17 PM CDT) Hepatitis C Ab Nonreactive Nonreactive [facility] Specimen Blood Narrative Performed At Chief Port Director ID - DB [facility] Performing Organization Address [facility] Phone Number [address] [address] C[place] Cytomegalovirus antibody, IgM (01/15/2020 4:17 PM CDT) CMV IGM Negative Negative, Equivocal [facility] Specimen Blood Narrative Performed At CMV IgM Result Interpretation: [facility] </= 0.8 Al Negative 0.9-1.0 Al [employer] >/= 1.1 Al Positive Performing Organization Address [facility] Phone Number [address] [address] C[place] Actin (Smooth Muscle) Antibody, [...] At Performing Lab [facility] [address] [place] [address] I Shashank ADRIAN, PhD, AMINA Performing Organization Address City/[facility] Phone Number [facility] [place] [address] [facility]ATED [address] [facility] [id number] (01/15/2020 4:17 PM CDT) A-1 Antitrypsin 121.20 90.00 - 200.00 mg/dL [facility] Specimen Blood Narrative Performed At Chief Port Director ID - DB [facility] Performing Organization Address [facility] Phone Number [address] [address] [place] Hepatitis A antibody, IgM (01/15/2020 4:17 PM CDT) Hep A IgM Nonreactive Nonreactive [facility] Specimen Blood Narrative Performed At Chief Port Director ID - DB [facility] Performing Organization Address City/[facility] Phone Number [address] [address] [place] Carbohydrate antigen 19-9 (CA 19-9) (01/15/2020 4:17 [...] At Performing Lab [facility] [address] [place] [address] I Shashank ADRIAN, PhD, AMINA Performing Organization Address [facility] Phone Number [facility] [place] [address] [facility] [address] [facility] Ceruloplasmin (01/15/2020 4:17 PM CDT) Ceruloplasmin 21 18 - 53 mg/dL [facility] Specimen Blood Narrative Performed At Performing Lab [facility] *BEATRIZ [employer] [facility], [address] [place] [phone] Jorje Jauregui MD, PhD Performing Organization Address [facility] Phone Number [facility] [place] [address] [facility] [address] [facility] Zinc (01/15/2020 4:17 PM CDT) Zinc 39 (L) 60 - 130 mcg/dL [facility] Comment: INC[facility]PORATED This test was developed and its analytical perfo rmance characteristics have been determined by [employer]. It has not been cleared or approved by the FDA. This assay has been validated pursuant to [facility] CLIA regulations and is used for clinical purposes. Specimen Blood Narrative Performed At Performing Lab [facility] *BEATRIZ [employer] [facility], [address] [place] [phone] Jorje Jauregui MD, PhD Performing Organization Address [facility] Phone Number [facility] [place] [address] [facility] [address] [facility] Hepatitis B core antibody, IgM (01/15/2020 4:17 PM CDT) Hep B C IgM Nonreactive Nonreactive [facility] Specimen Blood Narrative Performed At Chief Port Director ID - DB [facility] MED ICAL CENTER Performing Organization Address City/[facility]/Zipcode Phone Number [facility] MEDICAL [address] [place] [address] CENTER EBV-VCA antibody, IgM (01/15/2020 4:17 PM CDT) GABRIEL CHING VIRAL CAPSID Negative Negative, Equivocal [facility] ANTIGEN [facility] Specimen Blood Narrative Performed At Gabriel Ching Viral Capsid Antigen IgM Result [facility] Interpretation: </= 0.8 Al Negative 0.9-1.0 Al [employer] >/= 1.1 Al Positive Performing Organization Address City/[facility] Phone Number [address] [address] CENTER EBV-VCA antibody, IgG (01/15/2020 4:17 PM CDT) GABRIEL CHING VIRAL [employer] Positive (A) Negative, [employer] [facility] IGG [facility] Specimen Blood Narrative Performed At Gabriel Ching Viral Capsid Antigen IgG Result [facility] Interpretation: </= 0.8 Al Negative 0.9-1.0 Al [employer] >/= 1.1 Al Positive Performing Organization Address [facility] Phone Number [address] [address] C[place] Hepatitis B core antibody, total (01/15/2020 4:17 PM CDT) Hep B Core Total Ab Nonreactive Nonreactive [facility] Specimen Blood Narrative Performed At Chief Port Director MABLE Downs [facility] ICAL CENTER Performing Organization Address [facility] Phone Number [address] [address] C[place] Vitamin D, 25-Hydroxy (01/15/2020 4:17 PM CDT) Vitamin D 25-Hydroxy 6.2 (L) 6.6 - 49.9 ng/mL [facility] Specimen Blood Narrative Performed At Effective 05/07/2017: Reference Range von [facility] New: 6.6-49.9 ng/mL Previous: 13.0-47.8 ng/mL Recommended Vitamin D Target Range: 30.0-40.0 ng/mL Chief Port Director ID - DB Performing Organization Address [facility]/Zipcode Phone Number [address] [address] [place] RPR (01/15/2020 4:17 PM CDT) RPR Nonreactive Nonreactive [facility] Specimen Blood Performing Organization Address [facility] Phone Number [address] [address] [place] Hepatitis B surface antibody (01/15/2020 4:17 PM CDT) Hep B S Ab 25.0 (H) <8.0 mIU/mL [facility] Specimen Blood Narrative Performed At Chief Port Director ID - DB [facility] MED ICAL [place] Performing Organization Address [facility] Phone Number [address] [address] [place] Hepatitis B surface antigen (01/15/2020 4:17 PM CDT) HBsAg Screen Nonreactive Nonreactive [facility] Specimen Blood Narrative Performed At Specimen is considered negative for HBsAg. [facility] Performing Organization Address [facility] Phone Number [address] [address] [place] Cytomegalovirus antibody, IgG (01/15/2020 4:17 PM CDT) CYTOMEGALOVIRUS, IGG Positive (A) Negative, Equiv[employer] [facility] Specimen Blood Narrative Performed At CMV IgG Result Interpretation: [facility] </= 0.8 Al Negative 0.9-1.0 Al [employer] >/=1.1 AlPositive Performing Organization Address [facility] Phone Number [address] [address] [place] aPTT (01/15/2020 4:17 PM CDT) PTT 36.8 (H) 22.5 - 36.[address] [facility] Specimen Blood Performing Organization Address [facility]/Zipcode Phone Number [address] [address] [place] Fibrinogen (01/15/2020 4:17 PM CDT) Fibrinogen 114 (L) 225 - 434 mg/dl [facility] Specimen Blood Performing Organization Address [facility] Phone Number [address] [address] [place] Anti-Nuclear Antibody (REILLY) (01/15/2020 4:17 PM CDT) REILLY Negative Negative [facility] Specimen Blood Narrative Performed At Test performed by IFA method. [facility] Test performed by IFA method. Performing Organization Address [facility] Phone Number [address] [address] [place] T3 (01/15/2020 4:17 PM CDT) T3, Total 51 48 - 159 ng/dL [facility] Specimen Blood Narrative Performed At This result has an attachment that is no t available. Performing Organization Address [facility] Phone Number [facility] [address] [place], [place] Transferrin (01/15/2020 4:17 PM CDT) Transferrin 102 (L) 174 - 382 mg/dL [facility] Specimen Blood Narrative Performed At Chief Port Director ID - DB [facility] Specimen moderately icteric Performing Organization Address [facility] Phone Number [address] [address] [place] TSH (01/15/2020 4:17 PM CDT) TSH 5.549 (H) 0.350 - 4.940 uIU/mL [facility] Specimen Blood Narrative Performed At Chief Port Director ID - DB [facility] MED ICAL CENTER Performing Organization Address City/State/Zipcode Phone Number [address] [address] C[place] T4 (01/15/2020 4:17 PM CDT) T4, Total 4.3 (L) 4.9 - 11.7 ug/dL [facility] Specimen Blood Narrative Performed At Chief Port Director ID - NTP [facility] Performing Organization Address City/[facility]/Zipcode Phone Number [address] [address] C[place] Hemoglobin A1c (01/15/2020 4:17 PM CDT) Hemoglobin A1C <3.8 (L) 4.3 - 6.1 % [facility] Specimen Blood Performing Organization Address City/[facility] Phone Number [address] [address] C[place] Ferritin (01/15/2020 4:17 PM CDT) Ferritin 489.86 (H) 5.00 - 275.00 ng/mL [facility] Specimen Blood Narrative Performed At Chief Port Director ID - NTP [facility] Performing Organization Address City/[facility]/Zipcode Phone Number [address] [address] C[place] Carcinoembryonic Antigen (CEA) (01/15/2020 4:17 PM CDT) CEA, SERUM 7.9 (H) 0.0 - 5.0 ng/mL [facility] Specimen Blood Narrative Performed At Chief Port Director ID - DB [facility] Performing Organization Address City/[facility]/Zipcode Phone Number [address] [address] CENTER Ethanol (01/15/2020 4:17 PM CDT) Ethanol Lvl <10 <=10 mg/dL [facility] CENTER Specimen Blood Narrative Performed At Chief Port Director ID - DB [facility] MED ICAL CENTER Performing Organization Address City/State/Zipcode Phone Number [facility] [address] [place] [address] CENTER 2D Echo W/Doppler(CW/PW/Color) (01/15/2020 2:45 PM CDT) Ejection Fraction [facility] ECHO HEAR TLAB [facility] Specimen Narrative Performed At Transthoracic Echocardiography Report (T TE) [facility] ECHO HEARTLAB CKESSON [facility] Demographics Patient Name CICI CALDERON Date of Study 01/15/2020 ALYSE [id number] GenderFem shalom Visit Number [id number] RaceUnkn own [id number] m Number [id number] Number Date of Birth1955 Referring Physician Ren Hernandez MD Age64 year(s) Patcher Helper Lisa Bautista [facility] InterpretingJoseolvin Arreguin MD Physician Procedure Type of [...] Study 01/15/2020 ALYSE Gender Female Visit Number [id number] Race Unknown Room [place] [address] Number Date of 1955 Referri Physician Ren [...] T CI: 3.67 l/min/m^2 Performing Organization Address City/State/[facility] Phone Number [facility] ECHO HEARTLAB Figgu [facility] Carotid doppler bilateral (01/15/2020 2:41 PM CDT) Ejection Fraction [facility] ECHO HEAR TLAB [employer] [facility] Specimen Impressions Performed At Right Impression [facility] ECHO HEARTLAB Quiet LogisticsON [facility] 1. The internal, common and [...] Performed At LAB - Carotid Duplex Study [facility] ECHO HEARTLAB MKCKESSON [facility] Demographics Patient Shameka Tobias of Study 01/15/2020 ALYSE 64 Visit [id number] Female of 1955 Referring [facility] Room Number 1515 Physician Patcher Helper Herbert maurice, RUST Physician Procedure Type of Study: Cerebral: Carotid, [...] Study 01/15/2020 ALYSE Age 64 Visit Number [id number] Gen margarita Female Accession Number [id number] Ramirez e of 1955 Referring [facility] Shady Todd m Number [id number] Physician Patcher Helper Herbert Lechuga Int erpreting Chelsea Resendez, RUST Alvin foss MD Procedure Type of Study: [...] Performing Organization Address City/State/Zipcode Phone Number [facility] ECHO HEARTLAB MKCKESSON [facility] Hepatitis panel, acute (01/15/2020 8:32 AM CDT) Hep A IgM Nonreactive Nonreactive [facility] Hep B C IgM Nonreactive Nonreactive [facility] Hepatitis C Ab Nonreactive Nonreactive [facility] HBsAg Screen Nonreactive Nonreactive [facility] Specimen Blood Narrative Performed At Chief Port Director ID - [facility] ALLEN Performing Organization Address City/[facility] Phone Number [address] [address] C[place] Ammonia (01/15/2020 8:32 AM CDT) Ammonia 19 18 - 72 mol/L [facility] Specimen Blood Narrative Performed At Chief Port Director ID - [facility] Performing Organization Address City/[facility]/Zipcode Phone Number [address] [address] CENTER Uric acid (01/15/2020 3:56 AM CDT) Uric Acid 15.7 (H) 2.6 - 7.2 mg/dL [facility] Specimen Blood Narrative Performed At Chief Port Director ID - [facility] Specimen moderately icteric Performing Organization Address City/[facility]/Zipcode Phone Number [address] [address] [place] Gamma Glutamyl Transferase (GGT) (01/15/2020 3:56 AM CDT) GGT 15 9 - 64 U/L [facility] Specimen Blood Narrative Performed At Chief Port Director ID - NTP [facility] Specimen moderately icteric Performing Organization Address City/[facility] Phone Number [address] [address] [place] Lipid panel (01/15/2020 3:56 AM CDT) Triglycerides 86 mg/dL [facility] Cholesterol 101 mg/dL [facility] HDL 12 mg/dL [facility] LDL Calculated 72 mg/dL [facility] Specimen Blood Narrative Performed At Triglyceride Reference Range: [facility] Low Risk <150 [id number] High Risk 200-499 Very High Risk>=500 Cholesterol Reference Range: Low Risk <200 [id number] High Risk>240 HDL Cholesterol Reference Range: Low Risk >=60 High Risk <40 LDL Cholesterol Reference Range: Optimal<100 Near Fcuipnf879-365 Rlbukcciie420-011 Znsc697-162 Very High >=190 Chief Port Director ID - NTP Specimen moderately icteric Performing Organization Address [facility] Phone Number [address] [phone] [place] SARS-CoV2/RT-PCR (Asymptomatic ONLY) (01/14/2020 7:28 PM CDT) SARS-COV2/RT-PCR Not Detected Not Detected, Negative [facility] SARS-COV-2 PERFORMING LAB [facility] Specimen Other Narrative Performed At Negative results do not preclude SARS-CoV-2 [facility] infection and should not be used [...] the Act. Fact Sheet for Healthcare Providers: https://www.[employer]/Documents/Xpert%20Xpre ss%20SARS%20CoV-2/Fact%20Sheets/302-3802%20SAR S-COV-2%20HEALTHCARE%20PROVIDERS%20FACT%20SHEE T.pdf Fact Sheet for Healthcare Patients: https://www.[employer]/Documents/Xpert%20Xpre ss%20SARS%20CoV-2/Fact%20Sheets/302-3801%20SAR S-COV-2%20PATIENT%20FACT%20SHEET.pdf Performing Laboratory: [address] [place] [address] Performing Organization Address City/State/Zipcode Phone Number [facility] MEDICAL [address] [place], [place] [phone] CENTER after 05/03/2019 Insurance Payer Benefit Plan / Subscriber ID Type Phone Address Group [employer] - MEDICARE A[employer] MEDICARE HMO xxxxxxxx [id number] [place] [address] CDC REVIEW CDC REVIEW xxxxxxxx [place] [address] Advance Directives For more information, please contact:[address] [place], [place] [phone] Code Status Date Activated Date Inactivated Comments Full Code 01/14/2020 8:09 PM 01/26/2020 8:41 PM This code status was determined by: Patient
--- OUTSIDE RECORDS SUMMARY | 2020-05-03 18:56 | XMS REPORT | Continuity of Care Document ---
:1955 Author Organization [facility] t Address [address] [place] [address] Care Team Providers Name Role Phone Zeinab Gooden Primary Care Physician Mayank ESPINOSA, R Attending Clinician Unavailable Alfonso Attending Clinician Unavailable Baltazar Hernandez Attending Clinician Unavailable America ADRIAN KIrene Attending Clinician Yuriy Cartagena MD Attending Clinician [...] MEDICARE MGD xxxxxxxx [facility] CAREA[facility]NA MEDICARE [facility] Medical [id number], [place] [address] CDC REVIEWCDC xxxxxxxx [facility] REVIEWxxxxxxxxPO [facility] [id number] Center Problems Condition Condition Condition Status Onset Resolution Last Treating Co mments Source Name Details Category Date Date Treatment Clinician Date Acute Acute Disease Active [facility] liver liver 6-19 [facility] - failure failure 00:00: Medical 00 [facility] Elevated Elevated Disease Active [facility] serum serum 6-16 [facility] - creatinine creatinine 00:00: Me dical [...] Last [facility] esophageal esophageal 09-01 [facility]men [facility] - 00:00: t & Plan: Medical EGD in Center March 2016 was negative for varices. Obesity Obesity Disease Active 2015-[address] [facility] - 35.0-39.9 35.0-39.9 00:00: [...] C HI St on on 09-01 [facility]ess[facility] - 00:00: t & Plan: Medical [...] 4.0. Adrenal Adrenal Disease Active 2015-07 Last [facility] St mass, left mass, left 09-01 Assessmen - 00:00: t & Plan: Medical 00 3.5 x 2.5 Center cm focus on the left adrenal gland reported on MRI in April 2016. This could be a left adrenal mass vs a diverticu lum from the fundus of the stomach. This is likely benign. We will request the CD and review at the radiology conferenc e. Further recommend ations to follow. Allergies, Adverse Reactions, Alerts Allergy Allergy Status Severity Reaction(s) Onset Inactive Treating Comm ents Source Name Type Date Date Clinician Erythrom Drug Active Hives 2015-[address] [facility] ycin Allergy 09-01 [facility] - 00:00: Medical 00 [place] Levoflox Drug Active Other (See 2015-[address] acin Intolera Comments) 09-01 and [facility] - nce 00:00: diarrhea Medical 00 Center Sulfa Drug Active Rash 2015-[address] [facility] [address] (Sulfona Allergy 09-01 [facility] - mide 00:00: Medical Antibiot 00 Center ics) Tetracyc Drug Active Hives 2015-[address] [facility] lines Allergy 09-01 [facility] - 00:00: Medical 00 [place] Tetracyc Adverse Active hives [facility] line HCl Reaction [facility] Levaquin Adverse Active vomiting/jocy [facility] Reaction rrhea [facility] Erythrom Adverse Active vomiting/jocy [facility] ycin Reaction rrhea [facility] Family History Family Member Diagnosis Comments Start Date Stop Date Source Natural brother Diabetes [facility] Natural brother Hypertension [facility] Natural brother Arthritis [facility] Natural brother COPD [facility] Natural father Diabetes [facility] Natural father Heart disease [facility] Natural mother Diabetes [facility] Natural mother Heart disease [facility] Natural sister Cancer [facility] Social History Social Habit Start Date Stop Date Quantity Comments Source Sex Assigned At [facility] Alcohol Comment 2016-07-01 2016-07-01 social last drink [facility]00 [facility]00 [facility] Smoking Status Start Date Stop Date Source Former smoker 2020-04-11 00:00:00 2020-04-11 00:00:[address] [facility] Medications Ordered Filled Start Stop Current Ordering Indication Dosage Frequency Signature Comments Components Source Medication Medication Date Date Medication? Clinician (SIG) Name Name spironolact Yes 25mg QD Take [address] one 15 by mouth [facility]ukes - (ALDACTONE) 09:45: daily. Medi steven 25 MG 26 Center tablet magnesium Yes Magnesium 400mg QD Take [address] oxide 04-11 deficiency tablet [facility] - (MAG-OX) 00:00: (400 mg Medica l 400 mg 00 total) by Center (241.3 mg mouth magnesium) daily. tablet calcitrioL Yes Cirrhosis .5ug QD Take [address] (ROCALTROL) 04-11 of liver capsule L ukes - 0.5 MCG 00:00: without (0.5 mcg Med ical capsule 00 ascites, total) by Sina ter unspecified mouth hepatic daily. cirrhosis type (HCC) ergocalcife 2020- Yes Vitamin D [id number] Q7D Take [address] rol 04-11 [...] Center mouth 2 (two) times daily. ergocalcife 2020-0 2020- No [id number] Q7D Take [address] rol 01-3115 capsule [facility] - (ERGOCALCIF 00:00: 00:00 (50,000 Me dical MARIN) 1,250 00 :00 Units Center mcg (50,000 total) by unit) mouth once capsule a week. pantoprazol 2020-0 Yes 40mg QD Take [address] [facility] e 01-26 tablet (40 [facility] - (PROTONIX) 00:00: mg total) Me dical 40 MG 00 by mouth Center tablet daily. folic acid 2019-0 2020- No 1mg QD Take [address] [facility] [...] Medical capsule 03 :00 daily. Center rifAXIMin 2020-0 Yes 550mg Q.5D Take 1 [facility] 550 mg Tab 01-25 tablet [facility]ukes - 00:00: (550 mg Medical 00 total) by Center mouth 2 (two) times daily. lactulose 2020-0 Yes 20g Q.[id number] Take [address] (CHRONULAC) 01-25 [id number] mLs (20 g [facility] - 20 gram/30 00:00: 3D total) by Me dical mL solution 00 mouth 3 Cente r (three) times daily. calcitrioL 2020-0 2020- No .5ug QD Take [address] (ROCALTROL) 01-25 capsule Luke s - 0.5 MCG 00:00: 00:00 (0.5 mcg Medic al capsule 00 :00 total) by Center mouth daily. magnesium No 400mg QD Take [address] oxide 01-25 tablet [facility] - (MAG-OX) 00:00: 00:00 (400 mg Medic al 400 mg 00 :00 total) by Center (241.3 mg mouth magnesium) daily. tablet midodrine No 2.5mg Q.[id number] Take [address] (PROAMATINE 01-25 [id number] tablet [facility]ukes - ) 2.5 MG 00:00: [...] [facility] Sulfate HFA Sulfate HFA 4-09 [place] needed [facility] Cimetidine Cimetidine Yes Mitzy [address] [facility] [place] as needed [facility] Calcitriol Calcitriol Yes Mitzy [address] [facility] [place] [facility] Lactulose Lactulose Yes Mitzy [address] [facility] [place] [facility] Xifaxan Xifaxan Yes Mitzy [address] [facility] [place] [facility] Folic Acid Folic Acid Yes Mitzy [address] [facility] [place] [facility] Spironolact Spironolact Yes Mitzy [address] one one [place] [facility] Vitamin D2 Vitamin D2 Yes Mitzy [address] [place] [facility] MagOx 400 MagOx 400 Yes Mitzy [address] [place] with food [facility] Tramadol Tramadol Yes Mitzy [address] HCl HCl [place] as needed [facility] Midodrine Midodrine Yes Mitzy [address] HCl HCl [place] [facility] Pantoprazol Pantoprazol Yes Mitzy [address] e Sodium e Sodium [place] mixed with Lukes - apple Memoria juice or l applesauce [facility] Immunizations Ordered Filled Immunization Date Status Comments [facility] e Immunization Name Name Hepatitis A (adult) Hepatitis A (adult) 2020-02-21 Completed [facility] - 00:00:00 [facility] Hepatitis B (adult) Hepatitis B (adult) 2020-02-21 Completed [facility] - 00:00:00 [facility] Vital Signs Vital Name Observation Time Observation Value Comments Source Systolic blood 2020-04-11 09:39:00 104 mm[Hg] [facility] Diastolic blood 2020-04-11 09:39:00 43 mm[Hg] [facility] Heart rate 2020-04-11 09:39:00 85 /min [facility] Body temperature 2020-04-11 09:39:00 36.28 Shaneka [facility] Respiratory rate 2020-04-11 09:39:00 18 /min [facility] Body height 2020-04-11 09:39:00 162.6 cm [facility] Body weight Measured 2020-04-11 09:39:00 84.959 kg [facility] BMI 2020-04-11 09:39:00 32.15 kg/m2 [facility] Oxygen saturation in 2020-04-11 09:39:00 95 /min [facility] Arterial blood by Medical Ce nter Pulse oximetry Procedures Procedure Date / Time Performing Clinician Source Performed PROTHROMBIN TIME/INR 2020-05-02 13:25:00 Kristofer Montgomery [facility] COMPREHENSIVE METABOLIC 2020-05-02 13:25:[address] [facility] CBC W/PLT COUNT & AUTO 2020-05-02 13:25:00 AmericaKristofer theodore [facility] BILIRUBIN, DIRECT 2020-05-02 13:25:00 AmericaKristofer [facility] PLATELET ESTIMATION 2020-05-02 13:25:00 AmericaKristofer theodore [facility] PROTHROMBIN TIME/INR 2020-04-25 13:13:00 AmericaKristofer [facility] COMPREHENSIVE METABOLIC 2020-04-25 13:13:[address] [facility] CBC W/PLT COUNT & AUTO 2020-04-25 13:13:00 AmericaKristofer [facility] BILIRUBIN, DIRECT 2020-04-25 13:13:00 AmericaKristofer [facility] PLATELET ESTIMATION 2020-04-25 13:13:00 AmericaKristofer [facility] PROTHROMBIN TIME/INR 2020-04-18 08:56:00 AmericaKristofer [facility] 2020-04-18 08:56:[address] [facility] CBC W/PLT COUNT & AUTO 2020-04-18 08:56:00 AmericaKristofer theodore [facility] BILIRUBIN, DIRECT 2020-04-18 08:56:00 AmericaKristofer [facility] XR DXA BONE DENSITY STUDY 2020-04-11 11:51:00 Kristofer Montgomery [facility] ALPHA FETOPROTEIN (AFP), 2020-04-11 11:13:[address] [facility] TUMOR MARKER [facility] BILIRUBIN, DIRECT 2020-04-11 11:13:00 Sia Riley [facility] COMPREHENSIVE METABOLIC 2020-04-11 11:13:[address] [facility] PROTHROMBIN TIME/INR 2020-04-11 11:13:00 Sia Riley [facility] CBC W/PLT COUNT & AUTO 2020-04-11 11:13:00 Sia Riley [facility] PROTHROMBIN TIME/INR 2020-03-10 08:03:00 AmericaKristofer theodore [facility] COMPREHENSIVE METABOLIC 2020-03-10 08:03:[address] [facility] CBC W/PLT COUNT & AUTO 2020-03-10 08:03:00 AmericaKristofer theodore [facility] BILIRUBIN, DIRECT 2020-03-10 08:03:00 AmericaKristofer [facility] MISCELLANEOUS LAB ORDER 2020-02-15 12:29:00 AmericaKristofer [facility] MAGNESIUM 2020-02-15 12:29:00 AmericaKristofer [facility] BILIRUBIN, DIRECT 2020-02-15 12:29:00 AmericaKristofer [facility] COMPREHENSIVE METABOLIC 2020-02-15 12:29:[address] [facility] PROTHROMBIN TIME/INR 2020-02-15 12:29:00 AmericaKristofer [facility] CBC W/PLT COUNT & AUTO 2020-02-15 12:29:00 Kristofer Montgomery [facility] PROTHROMBIN TIME/INR 2020-02-08 10:23:00 AmericaKristofer theodore [facility] COMPREHENSIVE METABOLIC 2020-02-08 10:23:[address] [facility] CBC W/PLT COUNT & AUTO 2020-02-08 10:23:00 AmericaKristofer [facility] BILIRUBIN, DIRECT 2020-02-08 10:23:00 AmericaKristofer [facility] PLATELET ESTIMATION 2020-02-08 10:23:00 AmericaKristofer [facility] PROTHROMBIN TIME/INR 2020-02-01 09:25:00 AmericaKristofer theodore [facility] COMPREHENSIVE METABOLIC 2020-02-01 09:25:[address] [facility] CBC W/PLT COUNT & AUTO 2020-02-01 09:25:00 Kristofer Montgomery [facility] BILIRUBIN, DIRECT 2020-02-01 09:25:00 Kristofer Montgomery [facility] RHYTHM STRIP - SCAN 2020-01-27 10:00:12 Provider, Default [facility] CARDIAC CATH REPORT - SCAN 2020-01-27 10:00:07 Provider, Default [facility] TRANSFUSE LEUKO-REDUCED 2020-01-26 22:41:07 Miguel Angel, Kaylin [facility] METANEPHRINES 2020-01-26 14:51:[address] [facility] HEPATIC FUNCTION PANEL 2020-01-26 03:50:00 [facility], [place]) PROTHROMBIN TIME/INR 2020-01-26 03:50:00 [facility] CALCIUM, IONIZED 2020-01-26 03:50:00 [facility] COMPREHENSIVE METABOLIC 2020-01-26 03:50[facility] 2020-01-26 03:50:00 [facility] MAGNESIUM 2020-01-26 03:50:00 Juana [facility] CBC W/PLT COUNT & AUTO 2020-01-26 03:50:00 Florian Kinney [facility] HEPATIC FUNCTION PANEL 2020-01-25 03:47:00 [facility] [place] PROTHROMBIN TIME/INR 2020-01-25 03:47:00 [facility] BASIC METABOLIC PANEL (7) 2020-01-25 03:47:00 Ju[place] [facility] MAGNESIUM 2020-01-25 03:47:00 [place] [facility] CBC W/PLT COUNT & AUTO 2020-01-25 03:47:00 Florian Kinney [facility] (CELLAVISION MANUAL DIFF) 2020-01-25 03:47:00 Florian Kinney [facility] TRANSFUSION SERVICE REPORT 2020-01-24 18:00:13 Provider, Default [facility] - - SCAN Scanning [facility] PULMONARY FUNCTION - SCAN 2020-01-24 13:10:09 Provider, Default [facility] SPIROMETRY 2020-01-24 10:41:00 [facility] DLCO (SINGLE BREATH 2020-01-24 10:41:00 [facility] - DIFFUSION) [facility] LUNG VOLUMES 2020-01-24 10:41:00 [facility] 6 MINUTE WALK(FOR LUNG 2020-01-24 10:20:00 [facility] - TRANSPLANT ONLY) [facility] HEPATIC FUNCTION PANEL 2020-01-24 03:57:00 [place] [facility] PROTHROMBIN TIME/INR 2020-01-24 03:57:00 [place] [facility] CALCIUM, IONIZED 2020-01-24 03:57:00 Kermit Nicole [facility] PHOSPHORUS 2020-01-24 03:57:00 Kermit Nicole [facility] BASIC METABOLIC PANEL (7) 2020-01-24 03:57:00 Leena Arias [facility] MAGNESIUM 2020-01-24 03:57:00 Leena Arias [facility] CBC W/PLT COUNT & AUTO 2020-01-24 03:57:[address] [facility] DIFFERENTIAL [facility] PREPARE LEUKO-REDUCED RBC 2020-01-23 23:54:00 Vitor Orozco [facility] TRANSFUSION SERVICE REPORT 2020-01-23 18:00:37 Provider, Default [facility] - - SCAN [facility] HEPATIC FUNCTION PANEL 2020-01-23 04:32:00 [place] [facility] PROTHROMBIN TIME/INR 2020-01-23 04:32:00 [place] [facility] B-TYPE NATRIURETIC FACTOR 2020-01-23 04:32:[address] [facility] (BNP) [facility] CALCIUM, IONIZED 2020-01-23 04:32:00 Kermit Nicole [facility] PHOSPHORUS 2020-01-23 04:32:00 Kermit Nicole [facility] BASIC METABOLIC PANEL (7) 2020-01-23 04:32:00 [place] [facility] MAGNESIUM 2020-01-23 04:32:00 [place] [facility] CBC W/PLT COUNT & AUTO 2020-01-23 04:32:00 [place] [facility] (CELLAVISION MANUAL DIFF) 2020-01-23 04:32:00 [place] [facility] PREPARE LEUKO-REDUCED 2020-01-22 23:54:[address] [facility] PLATELETS [facility] TRANSFUSION SERVICE REPORT 2020-01-22 18:01:00 ProviderBozena [facility] - - SCAN Scanning [facility] TRANSFUSE LEUKO-REDUCED RED 2020-01-22 14:30:53 Vitor Orozco [facility] - BLOOD CELLS [facility] CORTISOL 2020-01-22 08:23:00 IsChristine duke [facility] CALCIUM, IONIZED 2020-01-22 04:35:00 Russ Ha [facility] HEPATIC FUNCTION PANEL 2020-01-22 04:35:00 Roscoe Ahmadi [facility] BASIC METABOLIC PANEL (7) 2020-01-22 04:35:00 [place] [facility] MAGNESIUM 2020-01-22 04:35:00 [place] [facility] CBC W/PLT COUNT & AUTO 2020-01-22 04:35:00 [place] [facility] (CELLAVISION MANUAL DIFF) 2020-01-22 04:35:00 [place] [facility] PROTHROMBIN TIME/INR 2020-01-22 04:34:00 Roscoe Ahmadi [facility] DIRECT [facility]HG (KRISTI)/DIRECT 2020-01-22 04:34:00 Oumou Jenkins [facility] ABORH, MANUAL 2020-01-22 04:34:00 Oumou Jenkins [facility] TRANSFUSION SERVICE REPORT 2020-01-21 18:00:48 ProviderBozena [facility] - - SCAN Scanning [facility] BODY FLUID CULTURE + GRAM 2020-01-21 16:54:00 Miguel Angel, Kaylin [facility] BODY FLUID CELL COUNT WITH 2020-01-21 16:54:00 Miguel Angel, Kaylin C HI [facility] US PARACENTESIS 2020-01-21 16:40:00 [facility] MISCELLANEOUS LAB ORDER 2020-01-21 09:31:[address] [facility] HEPATIC FUNCTION PANEL 2020-01-21 09:31:00 [facility] [place] PROTHROMBIN TIME/INR 2020-01-21 09:31:00 [facility] COMPREHENSIVE METABOLIC 2020-01-21 09:31:00 [facility] 2020-01-21 09:31:00 Leland [facility] MAGNESIUM 2020-01-21 09:31:00 AriasLeena loya [facility] CORTISOL 2020-01-21 09:31:00 Issrikanth [facility] RETICULOCYTE COUNT 2020-01-21 09:31:00 Gregory Oumou [facility] PERIPHERAL BLOOD SMEAR - 2020-01-21 09:31:00 Miguel Angel, Kaylin [facility] HOLD ONLY [facility] CBC W/PLT COUNT & AUTO 2020-01-21 09:31:00 [facility] X[facility] CHEST 1 VIEW 2020-01-21 09:10:00 [facility] PORTABLE/BEDSIDE Medical Center METANEPHRINES, 24 HOUR 2020-01-20 22:51:00 [place] [facility] URINE [facility] CATECHOLAMINES, 2020-01-20 22:51:00 [place] [facility] FRACTIONATED, 24HR URINE Medical Center TYPE AND SCREEN, AUTOMATED 2020-01-20 20:39:00 Miguel Angel, Kaylin C [facility] XR CHEST 1 VIEW 2020-01-20 20:28:00 [facility]/BEDSIDE Medical Center TRANSFUSION SERVICE REPORT 2020-01-20 18:01:30 Provider, [facility] MR ABDOMEN WITHOUT IV 2020-01-20 17:54:00 [facility] HEPATIC FUNCTION PANEL 2020-01-20 04:10:00 [facility] [place] PROTHROMBIN TIME/INR 2020-01-20 04:10:00 [facility] CALCIUM, IONIZED 2020-01-20 04:10:00 [facility] COMPREHENSIVE METABOLIC 2020-01-20 04:10:00 Leland [facility] PHOSPHORUS 2020-01-20 04:10:00 [facility] MAGNESIUM 2020-01-20 04:10:00 Leena Arias [facility] CBC W/PLT COUNT & AUTO 2020-01-20 04:10:00 [facility] (CELLAVISION MANUAL DIFF) 2020-01-20 04:10:00 Leland [facility] PREPARE LEUKO-REDUCED RBC 2020-01-19 23:54:00 Kaylin Michelle [facility] URINALYSIS W/ MICROSCOPIC 2020-01-19 23:19:00 Leland [facility] SODIUM, RANDOM URINE 2020-01-19 23:19:00 Leland [facility] BLOOD CULTURE 2020-01-19 21:45:00 Galdino [facility] BLOOD CULTURE 2020-01-19 21:44:00 [facility] [id number] 2020-01-19 21:43:00 Kristofer Montgomery [facility] TRANSFUSION SERVICE REPORT 2020-01-19 18:01:08 Provider, [facility] BLOOD GAS, ARTERIAL 2020-01-19 15:44:00 AmericaKristofer theodore [facility] CRYPTOCOCCAL ANTIGEN 2020-01-19 15:04:00 AmericaKrsitofer theodore [facility] MUMPS ANTIBODY, IGG 2020-01-19 15:04:00 AmericaKristofer [facility] RUBELLA ANTIBODY, IGG 2020-01-19 15:04:00 AmericaKristofer [facility] RUBEOLA ANTIBODY IGG 2020-01-19 15:04:00 AmericaKristofer [facility] VARICELLA ZOSTER ANTIBODY, 2020-01-19 15:04:00 AmericaKristofer theodore [facility] R & L CATH / CORONARY 2020-01-19 13:47:00 Brian Browning [facility] ANGIO (+/- LV) [facility] PROTHROMBIN TIME/INR 2020-01-19 11:00:00 DanburyRoscoe [facility] US BREAST BILATERAL 2020-01-19 09:10:00 Kristofer Montgomery [facility] HEPATIC FUNCTION PANEL 2020-01-19 04:11:00 [place] [facility] CALCIUM, IONIZED 2020-01-19 04:11:00 [facility]PREH[facility] METABOLIC 2020-01-19 04:11:[address] [facility] PHOSPHORUS 2020-01-19 04:11:00 Russ Ha [facility] B-TYPE NATRIURETIC FACTOR 2020-01-19 04:11:[address] [facility] (BNP) [facility] ALDOSTERONE 2020-01-19 04:11:00 King Rehanlevi Villanueva [facility] RENIN, PLASMA 2020-01-19 04:11:[address] [facility] METANEPHRINES 2020-01-19 04:11:00 King Rehanlevi Villanueva [facility] MAGNESIUM 2020-01-19 04:11:00 Leena Arias [facility] CBC W/PLT COUNT & AUTO 2020-01-19 04:11:00 [facility] CT ABDOMEN WITHOUT IV 2020-01-19 00:40:00 [place] [facility] CONTRAST [facility] US RENAL COMPLETE 2020-01-19 00:20:00 Galdino [facility] PREPARE LEUKO-REDUCED 2020-01-18 23:54:00 Ju[place] [facility] PLATELETS [facility] URINALYSIS W/ MICROSCOPIC 2020-01-18 20:49:00 [facility] SODIUM, RANDOM URINE 2020-01-18 20:49:00 Ha [facility] PROTEIN, RANDOM URINE 2020-01-18 20:49:00 [facility] CREATININE, RANDOM URINE 2020-01-18 20:49:00 Ha [facility] EOSINOPHIL SMEAR, URINE 2020-01-18 20:49:00 Ha [facility] TRANSFUSION SERVICE REPORT 2020-01-18 18:31:51 Provider, Bozena [facility] - - SCAN Scanning [facility] TRANSFUSE LEUKO-REDUCED RED 2020-01-18 13:21:26 Miguel Angel [facility] BLOOD CELLS [facility] NM MYOCARDIAL PERFUSION 2020-01-18 09:20:00 Brian Browning [facility] - PET/CT (REST & STRESS) Medical C enter TREADMILL 2020-01-18 08:57:35 Unknown, Hl7 [facility] TOLERANCE(NON-NUCLEAR Medical Ce nter TREADMILL) ECG 12-LEAD 2020-01-18 08:46:42 Unknown, Hl7 [facility] BASIC METABOLIC PANEL (7) 2020-01-18 06:10:00 [place] [facility] MAGNESIUM 2020-01-18 06:10:00 [place] [facility] T SPOT TB 2020-01-18 06:10:00 Miguel Angel [facility] HEPATIC FUNCTION PANEL 2020-01-18 06:10:00 [place] [facility] CBC W/PLT COUNT & AUTO 2020-01-18 06:10:00 Juana [facility] (CELLAVISION MANUAL DIFF) 2020-01-18 06:10:00 Ju[place] [facility] ECG 12-LEAD 2020-01-17 11:05:03 Brian Browning [facility] REPORT OF PROCEDURE - 2020-01-17 09:11:05 Doris [facility] REPORT OF PROCEDURE - 2020-01-17 08:39:23 Doris [facility] TISSUE EXAM 2020-01-17 08:15:00 Doris [facility] TRANSFUSE LEUKO-REDUCED 2020-01-17 08:04:58 Juana [facility] UPPER ENDOSCOPY,BIOPSY 2020-01-17 08:00:00 Doris [facility] COLONOSCOPY 2020-01-17 08:00:00 Doris [facility] PROTHROMBIN TIME/INR 2020-01-17 03:56:00 Mary Roper [facility] BASIC METABOLIC PANEL (7) 2020-01-17 03:56:00 Juana [facility] MAGNESIUM 2020-01-17 03:56:00 Juana [facility] CBC W/PLT COUNT & AUTO 2020-01-17 03:56:00 Juana [facility] (CELLAVISION MANUAL DIFF) 2020-01-17 03:56:00 Juana [facility] TRANSFUSION SERVICE REPORT 2020-01-16 18:00:[address] [facility] - SCAN [facility] BLOOD CULTURE 2020-01-16 12:25:00 Shady Gonzáles [facility] LACTATE DEHYDROGENASE (LDH) 2020-01-16 12:24:00 Juan Minor [facility] RETICULOCYTE COUNT 2020-01-16 12:23:00 Iván Juan [facility] BLOOD CULTURE 2020-01-16 11:25:00 Shady Gonzáles [facility] HIV-1 ANTIGEN WITH HIV-1/2 2020-01-16 11:25:00 Shady Gonzáles [facility] VITAMIN B12 AND FOLATE 2020-01-16 11:25:[address] [facility] HAPTOGLOBIN 2020-01-16 11:25:00 Iván [facility] US ABDOMINAL WITH DOPPLER 2020-01-16 06:30:00 Shady Gonzáles [facility] PROTHROMBIN TIME/INR 2020-01-16 03:38:00 Ramone [facility] HEPATIC FUNCTION PANEL 2020-01-16 03:38:00 Ramone [facility] BASIC METABOLIC PANEL (7) 2020-01-16 03:38:00 Juana [facility] MAGNESIUM 2020-01-16 03:38:00 Juana [facility] CBC W/PLT COUNT & AUTO 2020-01-16 03:38:00 Juana [facility] DRUG SCREEN, URINE, 2020-01-15 21:52:00 [facility], [facility]OMATED 2020-01-15 18:16:00 Shady Gonzáles [facility] CT CHEST WITHOUT IV 2020-01-15 17:54:00 Shady Gonzáles [facility] XR CHEST 2 VIEWS 2020-01-15 16:57:00 Shady Gonzáles [facility] XR MANDIBLE 4 VIEWS MIN 2020-01-15 16:39:00 Shady Gonzáles [facility] VITAMIN D, 25-HYDROXY 2020-01-15 16:17:00 Shady Gonzáles [facility] COMPREHENSIVE METABOLIC 2020-01-15 16:17:00 Shady Gonzáles [facility] BILIRUBIN, DIRECT 2020-01-15 16:17:00 Shady Gonzáles [facility] CALCIUM, IONIZED 2020-01-15 16:17:00 EliecerShady morales [facility] L ukes [facility] ZINC 2020-01-15 16:17:00 EliecerShady davidson [facility] ANTI-NUCLEAR ANTIBODY (REILLY) 2020-01-15 16:17:00 EliecerShady davidson [facility] ACTIN (SMOOTH MUSCLE) 2020-01-15 16:17:[address] [facility] ANTIBODY, IGG [facility] MITOCHONDRIA M2 ANTIBODY 2020-01-15 16:17:[address] [facility] (IGG) [facility] IRON, TIBC, % SAT. (WITHOUT 2020-01-15 16:17:[address] [facility] FERRITIN) [facility] FERRITIN 2020-01-15 16:17:00 EliecerShady davidson [facility] TRANSFERRIN 2020-01-15 16:17:00 Shady Gonzáles [facility] AQGIV-8-ZZMCPMTATCK\\, SERUM 2020-01-15 16:17:00 EliecerShady morales [facility] CERULOPLASMIN 2020-01-15 16:17:00 Shady Gonzáles [facility] ALPHA FETOPROTEIN (AFP), 2020-01-15 16:17:[address] [facility] TUMOR MARKER [facility] CARCINOEMBRYONIC ANTIGEN 2020-01-15 16:17:[address] [facility] (CEA) [facility] CARBOHYDRATE ANTIGEN 19-9 2020-01-15 16:17:[address] [facility] (CA 19-9) [facility] HEMOGLOBIN A1C 2020-01-15 16:17:00 Shady Gonzáles [facility] TSH 2020-01-15 16:17:00 Shady Gonzáles [facility] T3 2020-01-15 16:17:00 Shady Gonzáles [facility] T4 2020-01-15 16:17:00 EliecerShady morales [facility] ETHANOL 2020-01-15 16:17:00 EliecerShady morales [facility] FIBRINOGEN 2020-01-15 16:17:00 [facility] PROT[facility]OM[facility] TIME/INR 2020-01-15 16:17:00 Shady Gonzáles [facility] APTT 2020-01-15 16:17:00 Shady Gonzáles [facility] HEPATITIS A ANTIBODY, IGM 2020-01-15 16:17:00 EliecerShady davidson [facility] HEPATITIS B SURFACE ANTIGEN 2020-01-15 16:17:00 Shady Gonzáles [facility] HEPATITIS B SURFACE 2020-01-15 16:17:00 Shady Gonzáles [facility] HEPATITIS B CORE ANTIBODY, 2020-01-15 16:17:[address] [facility] TOTAL [facility] HEPATITIS B CORE ANTIBODY, 2020-01-15 16:17:00 EliecerShady morales [facility] HEPATITIS C ANTIBODY 2020-01-15 16:17:00 Shady Gonzáles [facility] RPR 2020-01-15 16:17:00 Shady Gonzáles [facility] CYTOMEGALOVIRUS ANTIBODY, 2020-01-15 16:17:[address] [facility] IGG [facility] CYTOMEGALOVIRUS ANTIBODY, 2020-01-15 16:17:[address] [facility] IGM [facility] EBV ANTIBODY, IGM 2020-01-15 16:17:00 EliecerShady davidson [facility] TYPE AND SCREEN, AUTOMATED 2020-01-15 16:17:00 Shady Gonzáles [facility] 2D ECHO W/ DOPPLER 2020-01-15 14:45:25 Ren Hernandez [facility] CAROTID DOPPLER BILATERAL 2020-01-15 14:41:00 EliecerShady davidson [facility] SODIUM, RANDOM URINE 2020-01-15 12:46:00 Marcus Stoneith [facility] CREATININE, RANDOM URINE 2020-01-15 12:46:00 Graciela Stone [facility] AMMONIA 2020-01-15 08:32:[address] [facility] HEPATITIS PANEL, ACUTE 2020-01-15 08:32:00 Marcus Stoneith [facility] BASIC METABOLIC PANEL (7) 2020-01-15 03:56:00 Graciela Stone [facility] PROTHROMBIN TIME/INR 2020-01-15 03:56:00 Ramone [facility] HEPATIC FUNCTION PANEL 2020-01-15 03:56:00 [facility]UM 2020-01-15 03:56:00 [facility] URIC ACID 2020-01-15 03:56:00 Eliecer [facility] GAMMA GLUTAMYL TRANSFERASE 2020-01-15 03:56:00 Eliecer [facility] (GGT) [facility] PHOSPHORUS 2020-01-15 03:56:00 Eliecer [facility] LIPID PANEL 2020-01-15 03:56:00 Eliecer [facility] CBC W/PLT COUNT & AUTO 2020-01-15 03:56:00 Graciela Stone [facility] (CELLAVISION MANUAL DIFF) 2020-01-15 03:56:00 Graciela Stone [facility] BASIC METABOLIC PANEL (7) 2020-01-14 21:59:00 Graciela Stone [facility] PROTHROMBIN TIME/INR 2020-01-14 21:59:00 Ramone [facility] HEPATIC FUNCTION PANEL 2020-01-14 21:59:00 Ramone [facility] CBC W/PLT COUNT & AUTO 2020-01-14 21:59:00 Graciela Stone [facility] DIFFERENTIAL [facility] SARS-COV2/RT-PCR ([facility] & 2020-01-14 19:28:00 Tameka Hunter CH I [facility] - REF LABS) [facility] BASIC METABOLIC PANEL (7) 2020-01-03 14:34:00 [facility], Line [facility] I [facility] HEPATIC FUNCTION PANEL 2020-01-03 14:34:00 Larry, [facility] PROTHROMBIN TIME/INR 2020-01-03 14:34:00 [facility], [facility] ALPHA FETOPROTEIN (AFP), 2020-01-03 14:34:00 [facility], [facility] - TUMOR MARKER [facility] CBC W/PLT COUNT & AUTO 2020-01-03 14:34:00 [facility], [facility] S [facility] - DIFFERENTIAL [facility] Plan of Care Planned Activity Planned Date Details Comments Source Future Scheduled 2030-01-[address] [facility] 00:[facility]00 [facility] of [facility] Center colon (procedure) [code = 538651847] Future Scheduled 2023-01-[address] [facility] Test 00:00[facility]00 (procedure) [code = Medical Center 67599985] Future Scheduled 2020-03-28 INFLUENZA VACCINE (#1) [facility]00 [code = INFLUENZA Medical Ce nter VACCINE (#1)] Future Scheduled 2019-07-28 Medicare IPPE (WELCOME [facility] Test 00:[facility]:00 TO MEDICARE) [code = Medical Center Medicare IPPE (WELCOME TO MEDICARE)] Future Scheduled 2019 PNEUMOCOCCAL [address] Test 00:00:00 LOW/MEDIUM RISK (1 of Medica l Center 2 - PCV13) [code = PNEUMOCOCCAL 65+ LOW/MEDIUM RISK (1 of 2 - PCV13)] Future Scheduled [address] [facility] 00:00[facility]00 [facility] [code = 539496342] Future Scheduled [address] [facility] - Test 00:00:00 malignant neoplasm of Medica l Center breast (procedure) [code = 372756110] Encounters Start End Encounter Admission Attending Care Care Encounter Source Date/Time Date/Time Type Type Clinicians Facility Department ID 2020-04-19 2020-04-19 Outpatient [facility] [id number] [facility] ent Clinics 2020-02-21 2020-02-21 Outpatient Brazrio Moratayat [id number] 16:00:00 16:00:00 [facility] Outpati ent Clinics 2020-02-14 2020-02-14 [facility] [place] [id number] 10:00:00 10:00:00 [facility] 2020-02-03 2020-02-03 [facility] [place] [id number] 11:48:00 11:48:00 [facility] 2020-01-13 2020-01-13 [place] [place] [id number] 14:40:00 14:40:00 [facility] ent [facility] 2020-01-03 2020-01-03 Transition [place] [id number] 00:00:00 00:00:00 of Care Aye [place] [id number] [place] [id number] 2019-12-28 2019-12-31 [facility] [id number] 21:39:45 13:10:00 Encounter MarcusinnaclaudiaJacklyn Maude [id number] Drea [id number] Brent [id number] 2019-11-03 2019-11-03 [facility] [place] [id number] 13:20:00 13:20:00 [facility] Clinics 2019-09-10 2019-09-10 Outpatient Rafia Sanford [id number] 09:30:00 09:30:00 [facility] ent Clinics 2019-08-31 2019-08-31 Outpatient Rafia Sanford [id number] 08:00:00 08:00:00 [facility] 2019-08-24 2019-08-24 Outpatient Rafia Sanford [id number] 10:41:00 10:41:00 [facility] 2019-08-19 2019-08-19 Outpatient Rafia Sanford [id number] 13:00:00 13:00:00 [facility] Results Test Description Test Time Test Comments Results Result Comments Source Comprehensive metabolic panel 2020-05-02 18:02:00 Test Item Value Reference Range Interpretation Comme nts Glucose (test code = 140 mg/dL 65-139 H Non-fasting ) reference inter beatriz BUN (test code = 42 mg/dL 7-25 H 20101128) Creatinine (test code = 2.44 mg/dL 0.5-0.99 H For patients >49 years 20130920) of age, the ref erence limitfor Creati nine is approximately 1 3% higher for peopleident ified as -Marisela n. eGFR If NonAfricn Am 20 > OR = 60 L (test code = 7347841) mL/min/1.73m2 eGFR If Africn Am (test 23 > OR = 60 L code = 6299059) mL/min/1.73m2 BUN/Creatinine Ratio 17 6- 22 (calc) (test code = 7990352) Sodium (test code = 134 mmol/L 135-146 L 3909801) Potassium, Serum (test 4.5 mmol/L 3.5-5.3 code = 0927789) Chloride (test code = 105 mmol/L 98-692 4906619) Carbon Dioxide, Total 22 mmol/L 20-32 (test code = 1477605) Calcium, Serum (test 10.3 mg/dL 8.6-10.4 code = 20101125) Protein, Total, Serum 5.6 g/dL 6.1-8.1 L (test code = 20101202) Albumin (test code = 3.2 g/dL 3.6-5.1 L ) GLOBULIN (QUEST) (test 2.4 1.9- 3.7 g/dL code = 7054118) (calc) Albumin Globulin Ratio 1.3 1.0- 2.5 (calc) (test code = 1759-0) Bilirubin, Total (test 3.5 mg/dL 0.2-1.2 H code = 20101204) Alkaline Phosphatase, S 90 U/L 37-153 (test code = 6768-6) AST (SGOT) (test code = 27 U/L 10-35 20101208) ALT (SGPT) (test code = 12 U/L 01-23) VALENTE (test code = VALENTE) FASTING:NOFASTING: NO RAC (test code = RAC) Performing Organization Information: Site ID: [facility] Name: [facility] Address: [address] [place] [address] Director: Alonso Carrasco Lab Interpretation Abnormal (test code = 95781-8) [facility], [id number] 18:02:00 Test Item Value Reference Range Interpretation Comments Bilirubin, Total (test 3.5 mg/dL 0.2-1.2 H code = 20101204) Bilirubin, Direct (test 1.1 mg/dL < OR = 0.2 H code = 20101216) Bilirubin, Indirect 2.4 0.2- 1.2 mg/dL H (test code = 4732390) (calc) VALENTE (test code = VALENTE) FASTING:NOFASTING: NO RAC (test code = RAC) Performing Organization Information: Site ID: [facility] Name: [facility] Address: [address] [place] [address] Director: Alonso Carrasco Lab Interpretation Abnormal (test code = 15594-0) [facility] count + automated [id number] 18:02:00 Test Item Value Reference Range Interpretation Comments WBC (test code = 4.3 3.8- 10.8 ) Thousand/uL RBC (test code = 789-8) 2.49 3.80- 5.10 L Million/uL Hemoglobin (test code = 9.2 g/dL 11.7-15.5 L ) Hematocrit (test code = 26.0 % 35-45 L ) MCV (test code = 104.4 fL 80-100 H ) MCH (test code = 36.9 pg 27-33 H ) MCHC (test code = 35.4 g/dL 32-36 ) RDW (test code = 13.2 % 11-15 ) Platelets (test code = 66 140- 400 L ) Thousand/uL MPV (test code = 10.9 fL 7.5-12.5 ) # Neutros (test code = 2838 1,500 - 7,267 6175236) cells/uL # Lymphs (test code = 757 850- 3,900 L 731-0) cells/uL # Monos (test code = 391 200- 950 cells/uL ) # Eos (test code = 292 15- 500 cells/uL 711-2) # Baso (test code = 22 0- 200 cells/uL 704-7) % Neutros (test code = 66 % ) % Lymphs (test code = 17.6 % 20200217) % Monos (test code = 9.1 % ) % Eos (test code = 6.8 % 20200215) % Baso (test code = 0.5 % 20200216) VALENTE (test code = VALENTE) FASTING:NOFASTING: NO RAC (test code = RAC) Performing Organization Information: Site ID: [facility] Name: [facility] Address: [address] [place] [address] Director: Alonso Carrasco Lab Interpretation Abnormal (test code = 36778-2) [facility] HospitalProthrombin time/[id number] 18:02:00 Test Item Value Reference Range Interpretation Comments INR (test code = 1.2 H Reference R von 1737868) 0.9-1.1Moderate -i ntensity Warfar in Therapy 2.0-3.0Higher-i nt ensity Warfarin Therapy 3.0-4 .0 PT (test code = 12.1 9.0- 11.5 sec H For more ) information on this test, go to:[email or web address] 04 VALENTE (test code = FASTING:NOFASTING: VALENTE) NO RAC (test code = Performing RAC) Organization Information: Site ID: [facility]: [facility] Address: [address] [place] [address] Director: Alonso Carrasco Lab Interpretation Abnormal (test code = 45213-4) [facility] HospitalPLATELET [id number] 18:02:00 Test Item Value Reference Range Interpretation Comments Platelet Estimate (test DECREASED ADEQUATE A code = 98705-9) VALENTE (test code = VALENTE) FASTING:NOFASTING: NO RAC (test code = RAC) Performing Organization Information: Site ID: [facility] Name: [facility] Address: [address] [place] [address] Director: Alonso Carrasco Lab Interpretation (test Abnormal code = 50926-5) [facility] HospitalBILIRUBIN, [id number] 15:57:00 Test Item Value Reference Range Interpretation Comments BILIRUBIN DIRECT (BEAKER) (test 1.9 mg/dL 0.1-0.5 H code = 706) Civil Drafting Technician ID - BSCOMPREHENSIVE METABOLIC [id number] 15:57:00 Test Item Value Reference Range Interpretation [...] S NOT APPLICABLE FOR DIALYSIS PATIEN TS. Civil Drafting Technician ID - BSSpecimen moderately ictericAlpha fetoprotein (AFP), tumor marker 2020-04-11 15:41:00 Test Item Value Reference Range Interpretation Comments Alpha-Fetoprotein (test code <2.0 <10.0 ng/mL = 1834-1) VALENTE (test code = VALENTE) Civil Drafting Technician ID - BS Lab Interpretation (test Normal code = 06286-5) [facility] FETOPROTEIN (AFP), TUMOR [id number] 15:41:00 Test Item Value Reference Range Interpretation Comments ALPHA-FETOPROTEIN (BEAKER) (test code < ng/mL <10.0 = 1094) Civil Drafting Technician ID - BSRAD, BONE DENSITY [id number] 13:34:00Referring: Dr. Rowdy Zhang for Exam:->liver transplant waiting listFINAL REPORT Bone density study, 04/11/2020 Clinical History: Screening Bone mineral density measurementLumbar spine0.866 gm/xp8Pquulsm neck0.714 gm/cm2 Standard deviation fromyoung adult population [...] Brooks Verified Date/Time: 04/11/2020 13:34:32 Reading Location: [address] Mamm Reading Room XR dxa bone density [id number] 13:34:00 Interface, External Ris In - 04/11/2020 1:36 PM CDTFINAL REPORT Bone densitystudy, 04/11/2020 Clinical History: Screening Bone mineral density measurementLumbar spine0.866 gm/xc2Inpnaef neck0.714 gm/cm2 Standard deviation from young adult [...] Brooks Verified Date/Time: 04/11/2020 13:34:32 Reading Location: OQMT 10th Flr Mammo Reading Room [facility]/[id number] 13:02:00 Test Item Value Reference Range Interpretation [...] heart valves.CBC with platelet count + automated [id number] 12:52:00 Test Item Value Reference Range Interpretation [...] K/CU MM L MPV (test code = 62305-3) 10.4 fL 9.4-12.3 nRBC (test code = [...] 2801) Lab Interpretation (test code = Abnormal 84598-3) [facility] W/PLT COUNT & AUTO [id number] 12:52:00 Test Item Value Reference Range Interpretation [...] 0-1 PERCENT (BEAKER) (test code = 2801) MISCELLANEOUS LAB [id number] 12:14:00 Test Item Value Reference Range Interpretation Comments SCAN RESULT (test code = 0367030) Miscellaneous lab [id number] 12:14:00Scan ResultQUEST NON-INTERFACED LABCHI [facility]2020-07-21 13:17:00 Test Item Value Reference Range Interpretation Comments Magnesium (test code = 1.8 mg/dL 1.6-2.6 62899-7) VALENTE (test code = VALENTE) Civil Drafting Technician ID - LM Lab Interpretation (test Normal code = 51310-6) [facility]2020-07-21 13:17:00 Test Item Value Reference Range Interpretation Comments MAGNESIUM (BEAKER) (test code = 1.8 mg/dL 1.6-2.6 627) Civil Drafting Technician ID - LMCOMPREHENSIVE METABOLIC [id number] 13:17:00 Test Item Value Reference Range Interpretation [...] S NOT APPLICABLE FOR DIALYSIS PATIEN TS. Civil Drafting Technician ID - LMSpecimen moderately ictericBILIRUBIN, [id number] 13:17:00 Test Item Value Reference Range Interpretation Comments BILIRUBIN DIRECT (BEAKER) (test 2.5 mg/dL 0.1-0.5 H code = 706) Civil Drafting Technician ID - LMPROTHROMBIN TIME/[id number] 13:05:00 Test Item Value Reference Range Interpretation [...] mechanical heart valves.CBC W/PLT COUNT & AUTO [id number] 12:59:00 Test Item Value Reference Range Interpretation [...] 0-1 PERCENT (BEAKER) (test code = 2801) [id number] 10:36:00 Test Item Value Reference Interpretation Comments Range Metanephrine (test 46 pg/mL < OR = 57 This mushtaq t was developed code = 6188694) and its anal ytical performance characteristics havebeen determined by [employer] [facility].It h as not been cleared or appr jean-claude by FDA. This assay has been validatedpursua nt to the CLIA regulation s and is used for clinic al purposes. Normetanephrine 213 pg/mL < OR = 148 H This test w as developed (test code = and its analyti steven 6593646) performance characteristics havebeen determined by [employer] [facility].It h as not been cleared [...] Reference: (1) Latrice Lorenz et al, Plasma Child Nutrition Assistant mogranin A or Urine FractionatedMet anephrines Follow-Up Testi ng Improves the Diagnostic Accuracy of PlasmaFractiona madai Metanephrines f or Pheochromocytom a. The Journal of ClinicalEndocri nology and Metabolism 93 ( 1),91-95, 2008. For addit ional information, pl ease refer tohttp://educat ion.Collections.CasaHop/f aq/MetFract Free(This link is being provided for informational/e ducational purposes only.) This test was developed a nd its analytical perf ormance characteristics havebeen determined by [employer] [facility].It h as not been cleared or appr jean-claude by FDA. This assay has been validatedpursua nt to the CLIA regulation s and is used for clinic al purposes. VALENTE (test code = Performing Lab VALENTE) EZ [facility] [address] [place] [address] Mark Encarnacion MD, PhD, AMINA Lab Interpretation Abnormal (test code = 98996-1) [facility] HospitalCatecholamines, Fractionated, 24hr [id number] 11:55:00 Test Item Value Reference Interpretation Comments Range TOTAL VOLUME (test 1000 mL code = 4687638) Epinephrine,24 Hr <2 2- 24 mcg/24 h L Result b elow clinical Ur (test code = reportable r von for ) this analyte, w hich is 2 mcg/L.Repo rted result was calc ulated using 2 mcg/L. This test was develo ped and its analyti steven performance characteristics havebeen determ ined by [facility] .It has not been cl eared or approved by FDA. This assay has been validatedpursua nt to the CLIA regula tions and is used for clinical purpos es. Norepinephrine 9 15- 100 mcg/24 L This test was (test code = h developed and i ts ) analytical performance characteristics havebeen determ ined by [facility] .It has not been cl eared or approved by FDA. This assay has been validatedpursua nt to the CLIA regula tions and is used for clinical purpos es. Calculated Total 9 26- 121 mcg/24 L This mushtaq t was E+Ne (test code = h developed and its 20190907) analytical performance characteristics havebeen determ ined by [facility]l [facility] .It has not been cl eared [...] characteristics havebeen determ ined by [facility] .It has not been cl eared or approved by FDA. This assay has been validatedpursua nt to the [facility]ula [facility] and is used for clinical purpos es. Creatinine,24 Hr 0.88 0.50- 2.15 Urin (test code = g/24 h ) VALENTE (test code = Performing Lab VALETNE) EZ [facility] [address] [place] [address] Mark Encarnacion MD, PhD, AMINA Lab Interpretation Abnormal (test code = 31252-5) [facility] HospitalMIS[facility]LLANEOUS LAB [id number] 12:33:00 Test Item Value Reference Range Interpretation Comments SCAN RESULT (test code = 9311520) [id number] 16:28:00 Test Item Value Reference Range Interpretation Comments Lab Interpretation (test code = Normal 02406-7) [facility] HospitalMetanephrines, 24 hour [id number] 12:57:00 Test Item Value Reference Interpretation Comments Range TOTAL VOLUME (test 1000 mL code = 6730959) Metanephrine (test 205 90- 315 This mushtaq t was code = 4635587) mcg/24 h developed an d its analytical perf ormance characteristics havebeen determ ined by [facility] .It has not been cleare d or approved by FDA . This assay has been validatedpursua nt to the [facility] regula [facility] and is used for clinical purpos es. Normetanephrine 657 122- 676 This test w as (test code = mcg/24 h developed and i ts 2727621) analytical perf ormance characteristics havebeen determ ined by [facility] .It has not been cleare d or approved by FDA . This assay has been validatedpursua nt to the [place] regula [facility] and is used for clinical purpos es. [...] characteristics havebeen determ ined by [facility] .It has not been cleare d or approved by FDA . This assay has been validatedpursua nt to the CLIA regula tions and is used for clinical purpos es. VALENTE (test code = Performing Lab VALENTE) EZ [facility] [address] [place] [address] Mark Encarnacion MD, PhD, AMINA Lab Interpretation Abnormal (test code = 12987-9) [facility] HospitalCalcium, [id number] 05:42:00 Test Item Value Reference Range Interpretation Comments Calcium, Ion (test code = 1993-) 1.11 mmol/L 1.12-1.27 L pH, Blood (test code = 12904-6) 7.41 Lab Interpretation (test code = Abnormal 26089-7) [facility] HospitalCALCIUM, [id number] 05:42:00 Test Item Value Reference Range Interpretation Comments CALCIUM IONIZED (BEAKER) (test 1.11 mmol/L 1.12-1.27 L code = 698) PH, BLOOD (BEAKER) (test code = 7.41 1810) COMPREHENSIVE METABOLIC [id number] 04:57:00 Test Item Value Reference Range Interpretation [...] S NOT APPLICABLE FOR DIALYSIS PATIEN TS. Civil Drafting Technician ID - BSSpecimen moderately ictericHepatic function [id number] 04:53:00 Test Item Value Reference Range Interpretation Comments Protein, Total (test code 5.7 6.0- 8.3 gm/dL L = 2885-2) Albumin (test code = 3.4 g/dL 3.5-5 L 59786-5) Total Bilirubin (test 6.9 mg/dL 0.2-1.2 H code = 1975-2) Bilirubin, Direct (test 2.2 mg/dL 0.1-0.5 H code = 1968-7) Alkaline Phosphatase 58 U/L 40-150 (test code = 6768-6) AST (test code = 1920-8) 36 U/L 5-34 H ALT (test code = 1742-6) 13 U/L 6-55 VALENTE (test code = VALENTE) Civil Drafting Technician ID - BSSpecimen moderately icteric Lab Interpretation (test Abnormal code = 85622-7) [facility] HospitalPhosphorus[facility] 04:53:00 Test Item Value Reference Range Interpretation Comments Phosphorus (test code = 3.2 mg/dL 2.3-4.7 2777-1) VALENTE (test code = VALENTE) Civil Drafting Technician ID - BS Lab Interpretation (test Normal code = 34882-9) [facility] HospitalPHOSPHORUS2020-07-01 04:53:00 Test Item Value Reference Range Interpretation Comments PHOSPHORUS (BEAKER) (test code = 3.2 mg/dL 2.3-4.7 604) Civil Drafting Technician ID - [id number] 04:53:00 Test Item Value Reference Range Interpretation Comments MAGNESIUM (BEAKER) (test code = 1.7 mg/dL 1.6-2.6 627) Civil Drafting Technician ID - BSHEPATIC FUNCTION [id number] 04:53:00 Test Item Value Reference Range Interpretation [...] (test code = 13 U/L 6-55 347) Civil Drafting Technician ID - BSSpecimen moderately ictericCBC W/PLT COUNT & AUTO [id number] 04:42:00 Test Item Value Reference Range Interpretation [...] PERCENT (BEAKER) (test code = 2801) PROTHROMBIN TIME/[id number] 04:36:00 Test Item Value Reference Range Interpretation [...] (test No organisms seen code = 1123) [facility] HospitalBODY FLUID CULTURE + GRAM [id number] 12:05:00 Test Item Value Reference Range Interpretation Comments CULTURE (BEAKER) (test No growth code = 1095) GRAM STAIN RESULT <1+ White blood cells (BEAKER) (test code = seen 1123) GRAM STAIN RESULT No organisms seen (BEAKER) (test code = 02642) Manual [id number] 07:35:00 Test Item Value Reference Range Interpretation [...] = 3438) VALENTE (test code = VALENTE) Civil Drafting Technician ID - [id number] ID - Maria Del Carmen Quintana comments: Slide comments: Lab Interpretation (test Abnormal code = 44699-8) [facility] W/PLT COUNT & AUTO [id number] 07:35:00 Test Item Value Reference Range Interpretation [...] CONCENTRATION Decreased (CELLAVISION)(BEAKER) (test code = 3438) Civil Drafting Technician ID - 6000Operator ID - Maria Del Carmen Lilian comments: Slide comments:Basic Metabolic [id number] 06:24:00 Test Item Value Reference Range Interpretation Comments Sodium (test code = 140 meq/L 283-414 7612-2) Potassium (test code 3.4 meq/L 3.5-5.1 L = 2823-3) Chloride (test code = 105 meq/L 98-107 2075-0) CO2 (test code = 25 meq/L 22-29 8-9) BUN (test code = 31 mg/dL 7-21 H 3094-0) Creatinine (test code 2.35 mg/dL 0.57-1.25 H = 2160-0) Glucose (test code = 108 mg/dL 70-105 H 2345-7) Calcium (test code = 8.7 mg/dL 8.4-10.2 39443-6) EGFR (test code = 21 mL/min/1.73 [place] [address]-8) NOT ACCURATE CREATININE CLEARANCE IN PREDICTING GLOMERULAR FILTRATION RATE . ESTIMATED GFR I S NOT APPLICABLE FOR DIALYSIS PATIENTS. VALENTE (test code = VALENTE) Civil Drafting Technician ID - MITCH Jane moderately icteric Lab Interpretation Abnormal (test code = 89113-0) [facility] METABOLIC [id number] 06:24:00 Test Item Value Reference Range Interpretation [...] S NOT APPLICABLE FOR DIALYSIS PATIEN TS. Civil Drafting Technician ID - PIDORIAN LSpecimen moderately ictericHEPATIC FUNCTION [id number] 06:23:00 Test Item Value Reference Range Interpretation [...] (test code = 13 U/L 6-55 347) Civil Drafting Technician ID - MITCH LSpecimen moderately [id number] 06:22:00 Test Item Value Reference Range Interpretation Comments MAGNESIUM (BEAKER) (test code = 1.8 mg/dL 1.6-2.6 627) Civil Drafting Technician ID - MITCH LPROTHROMBIN TIME/[id number] 04:22:00 Test Item Value Reference Range Interpretation [...] = No growth in 5 days 6463-4) [facility] HospitalBLOOD [id number] 23:00:00 Test Item Value Reference Range Interpretation Comments CULTURE (BEAKER) (test No growth in 5 days code = 1095) BLOOD [id number] 23:00:00 Test Item Value Reference Range Interpretation Comments CULTURE (BEAKER) (test No growth in 5 days code = 1095) DLCO (single breath diffusion)2020-01-24 10:41:00Epifanio Giles, ORE SAMPLER, VEHICLE CHECK IN CLERK 01/24/2020 10:52 [facility] CHARTING REPORT Infection Control/Hand Hygiene procedures followed throughout the encounter with patient: YesPatient Identification Method: Patient name verified on armband, and Medical record on armband, Is the order complete?: Yes Account ID#: [id number] Name: Cici Calderon Birthdate: 1955 Age: 64 [...] and patient released from the lab without adverseoutcome.[facility] HospitalPulmonary Funct Lab [id number] 10:41:00Epifanio Giles, ORE SAMPLER, VEHICLE CHECK IN CLERK 01/24/2020 10:52 [facility] PFT CHARTING REPORT Infection Control/Hand Hygiene procedures followed throughout the encounter with patient: YesPatient Identification Method: Patient name verified on armband, and Medical record on armband, Is the order complete?: Yes Account ID#: [id number] Name: Cici Calderon Birthdate: 1955 Age: 64 [...] and patient released from the lab without adverseoutcome.[facility] HospitalLu [id number] 10:41:00Epifanio Giles, ORE SAMPLER, VEHICLE CHECK IN CLERK 01/24/2020 10:52 [facility] PFT CHARTING REPORT Infection Control/Hand Hyg iene procedures followed throughout the encounter with patient: YesPatient Identification Method: Patient name verified on armband, and Medical record on armband, Is the order complete?: Yes Account ID#: [id number] Name: Cici Calderon Birthdate: 1955 Age: 64 [...] and patient released from the lab without adverseoutcome.[facility]6 MINUTE WALK(FOR LUNG TRANSPLANT ONLY)2020-01-24 10:20:00Janina Meehan, JUVENAL, VEHICLE CHECK IN CLERK 01/24/2020 2:39 [facility] PFT CHARTING REPORT Infection Control/Hand Hygiene procedures followed throughout the encounter with patient: YesPatient Identification Method: Patient name verified on armband, and Medical record on armband, Is the order complete?: Account ID#: [id number] Name: Cici Calderon Birthdate: 1 09/08/1954 Age: [...] patient released from the lab without adverse outcome.[facility], [id number] 09:43:00 Referring: Dr. Rowdy Christie to be ordered:->Body Fluid Culture (w/Gram Stain, C\\T\\S)Labs marko ordered:->Cell CountReason for exam:->Acute Kidney Injury - rule out SBP - can remove volume of up to 4-5 L (given ANDERS)Should this be performed at the bedside?->YesFINAL REPORT Ultrasound guided paracentesis Clinical History: Ascites. Sedation: None. Flower Picker: Christine Ward PA-C Supervising Physician: Natan Chisholm MD Veneer Stock Grader: None. Estimated Blood Loss: < 1 mL. [...] anesthesia was achieved with lidocaine, a 5 Gambian one-step catheter was advanced into theperitoneal cavity under ultrasound guidance. After completion of drainage, the catheter was removed.There was no evidence of complication. Impression:Successful ultrasound guided paracentesis. Signed:Natan Chisholm MDReport Verified Date/Time: 01/24/2020 09:43:05 Reading Location: [address] Ultrasound Reading Room US [id number] 09:43:00Interface, External Ris In - 01/24/2020 9:45 AM CDTFINAL REPORT Ultrasound guided paracentesis Clinical History: Ascites. Sedation: None. Flower Picker: Christine Ward PA-C Supervising Physician: Natan Chisholm MD Veneer Stock Grader: None. Estimated Blood Loss: < 1 mL. [...] anesthesia was achieved with lidocaine, a 5 Gambian one-step catheter was advanced into the peritoneal cavity under ultrasound guidance. After completion of drainage, the catheter was removed. There was no evidence of complication. Impression:Successful ultrasound guided paracentesis. Signed: Natan Chisholm Verified Date/Time: 12/27 09:43:05 Reading Location: [address] Ultrasound Reading [facility]OL[facility] [id number] 06:18:00 Test Item Value Reference Range Interpretation [...] S NOT APPLICABLE FOR DIALYSIS PATIEN TS. Civil Drafting Technician ID - PIAYA LSpecimen moderately [id number] 05:38:00 Test Item Value Reference Range Interpretation Comments PHOSPHORUS (BEAKER) (test code = 2.8 mg/dL 2.3-4.7 604) Civil Drafting Technician ID - MITCH [id number] 05:38:00 Test Item Value Reference Range Interpretation Comments MAGNESIUM (BEAKER) (test code = 1.8 mg/dL 1.6-2.6 627) Civil Drafting Technician ID Mercedes MEYER LHEPATIC FUNCTION [id number] 05:38:00 Test Item Value Reference Range Interpretation [...] (test code = 11 U/L 6-55 347) Civil Drafting Technician ID - MITCH LSpecimen moderately ictericCALCIUM, [id number] 04:56:00 Test Item Value Reference Range Interpretation Comments CALCIUM IONIZED (BEAKER) (test 1.09 mmol/L 1.12-1.27 L code = 698) PH, BLOOD (BEAKER) (test code = 7.43 1810) PROTHROMBIN TIME/[id number] 04:48:00 Test Item Value Reference Range Interpretation [...] mechanical heart valves.CBC W/PLT COUNT & AUTO [id number] 04:36:00 Test Item Value Reference Range Interpretation [...] (BEAKER) (test code = 2801) Prepare Leuko-Red [id number] 23:54:00 Test Item Value Reference Range Interpretation Comments CROSSMATCH (test code = 2264) COMPATIBLE Unit ABO (test code = A Pos 3600331) UNIT NUMBER (test code = [id number] 934-0) Status (test code = 9846364) TX_TIMEINCHART Blood Bank Product (test code RED BLOOD CELLS = 2263) PRODUCT CODE (test code = I6425M35 933-2) [facility] HospitalRubeola antibody [id number] 18:06:00 Test Item Value Reference Range Interpretation Comments Rubeola Ab, 235 AU/mL REFERENCE RANGE : Igg (test code <13.50 AU/mL = 76675-1) AU/mL Interpretation ==== <13.50 Negative 13.50-16.49 Equivocal >16.49 Positive A posi tive result indicate s that the patient hasantibody to measles virus. It does notdifferentiat e between an acti ve or past infection. The clinical diagno sis must be interpr eted inconjunction w ith clinical signs and symptoms ofthe patient. For additional information, pl ease refer tohttp://educat ion.[facility], 1928[facility]1983 stDiagnostics.c om/faq/ IQJ948(This rosa k is being provided for informational/e ducatio nal purposes on ly.) VALENTE (test code Performing Lab = VALENTE) *QDID [facility] [address] [place] [phone] Sudhakar Hargrove MD [facility] HospitalMitochondria M2 Antibody (IgG)2020-01-23 13:50:00 Test Item Value Reference Range Interpretation Comments Mitochondria M2 Ab <20.0 See Note: U Reference (test code = Range:NEGATIVE: ) < OR = 20.0EQUIVOCAL: 20.1-24.9POSITI V E: > OR = 25.0 VALENTE (test code = Performing Lab VALENTE) [facility] [address] [place] [address] Mark Encarnacion MD, PhD, AMINA [facility] HospitalMumps antibody, [id number] 13:38:00 Test Item Value Reference Range Interpretation [...] (test Performing Lab code = VALENTE) *QDID [facility] [address] [place] [address] H Jorje Hargrove MD [facility] HospitalCB W/PLT COUNT & AUTO [id number] 12:26:00 Test Item Value Reference Range Interpretation [...] 313) LARGE PLT(BEAKER) (test code = Present 6) POLYCHROMATOPHILLIC RBCS(BEAKER) 1+ few (test code = [...] CONCENTRATION Decreased (CELLAVISION)(BEAKER) (test code = 3438) Civil Drafting Technician ID - 6000Operator ID - Charo Nikki comments: Slide comments: BASIC METABOLIC [id number] 07:18:00 Test Item Value Reference Range Interpretation [...] S NOT APPLICABLE FOR DIALYSIS PATIEN TS. Civil Drafting Technician ID - PIAYA LSpecimen moderately [id number] 07:17:00 Test Item Value Reference Range Interpretation Comments MAGNESIUM (BEAKER) 1.6 mg/dL 1.6-2.6 Specimen slightly (test code = 627) hemolyzed Civil Drafting Technician ID - MITCH [id number] 07:17:00 Test Item Value Reference Range Interpretation Comments PHOSPHORUS (BEAKER) 2.4 mg/dL 2.3-4.7 Specimen slightly (test code = 604) hemolyzed Civil Drafting Technician ID - MITCH LHEPATIC FUNCTION [id number] 07:17:00 Test Item Value Reference Range Interpretation [...] Specimen slightly (test code = 347) hemolyzed Civil Drafting Technician ID - MITCH LSpecimen moderately ictericB-type Natriuretic Factor (BNP) 2020-01-23 06:55:00 Test Item Value Reference Range Interpretation Comments BNP (test code = 37083-1) 2179 pg/mL 0-100 H VALENTE (test code = VALENTE) Civil Drafting Technician ID - MITCH L Lab Interpretation (test Abnormal code = 53270-0) [facility] HospitalB-TYPE NATRIURETIC FACTOR (BNP)2020-01-23 06:55:00 Test Item Value Reference Range Interpretation Comments B-TYPE NATRIURETIC PEPTIDE 2179 pg/mL 0-100 H (BEAKER) (test code = 700) Civil Drafting Technician ID - MITCH LCALCIUM, [id number] 06:31:00 Test Item Value Reference Range Interpretation Comments CALCIUM IONIZED (BEAKER) (test 1.07 mmol/L 1.12-1.27 L code = 698) PH, BLOOD (BEAKER) (test code = 7.45 1810) PROTHROMBIN TIME/[id number] 06:00:00 Test Item Value Reference Range Interpretation [...] for patients wiht mechanical heart valves.Prepare Leuko-Red [id number] 23:54:00 Test Item Value Reference Range Interpretation Comments Unit ABO (test code = 1274730) O Pos UNIT NUMBER (test code = [id number] 934-0) Status (test code = 0287003) TX_TIMEINCHART Blood Bank Product (test code PLATELETS = 2263) PRODUCT CODE (test code = C8260H73 933-2) [facility] W/PLT COUNT & AUTO [id number] 10:35:00 Test Item Value Reference Range Interpretation [...] CONCENTRATION Decreased (CELLAVISION)(BEAKER) (test code = 3438) Civil Drafting Technician ID - 6000Operator ID - Lizett OverholtUser comments: Slide comments: [id number] 10:05:00 Test Item Value Reference Range Interpretation Comments Cortisol, Total (test code 1.6 ug/dL 3.7-19.4 L = 2755) VALENTE (test code = VALENTE) Civil Drafting Technician ID - MITCH L Lab Interpretation (test Abnormal code = 22802-5) [facility] HospitalCORTISOL2020-06-27 10:05:00 Test Item Value Reference Range Interpretation Comments CORTISOL, TOTAL (BEAKER) (test code 1.6 ug/dL 3.7-19.4 L = 2755) Civil Drafting Technician ID - MITCH LDirect AHG (KRISTI)/Direct [id number] 07:49:00 Test Item Value Reference Range Interpretation Comments Direct AHG-IGG (test code = 1006-6) NEGATIVE Direct AHG-C3B, C3D (test code = NEGATVIE 1003-3) [facility] HospitalABORH, [id number] 07:37:00 Test Item Value Reference Range Interpretation Comments ABO Grouping (test code = 2588) A Rh Factor (test code = 2589) POS [facility] HospitalCALCIUM, [id number] 06:31:00 Test Item Value Reference Range Interpretation Comments CALCIUM IONIZED (BEAKER) (test 1.10 mmol/L 1.12-1.27 L code = 698) PH, BLOOD (BEAKER) (test code = 7.44 1810) BASIC METABOLIC [id number] 06:20:00 Test Item Value Reference Range Interpretation [...] S NOT APPLICABLE FOR DIALYSIS PATIEN TS. Civil Drafting Technician ID - PIDORIAN LSpecimen moderately [id number] 06:12:00 Test Item Value Reference Range Interpretation Comments MAGNESIUM (BEAKER) (test code = 1.7 mg/dL 1.6-2.6 627) Civil Drafting Technician ID - MITCH LHEPATIC FUNCTION [id number] 06:12:00 Test Item Value Reference Range Interpretation [...] (test code = 10 U/L 6-55 347) Civil Drafting Technician ID - PIAYA LSpecimen moderately ictericPROTHROMBIN TIME/[id number] 05:48:00 Test Item Value Reference Range Interpretation [...] is2.5-3.5 for patients wiht mechanical heart valves.Renin, [id number] 22:50:00 Test Item Value Reference Range Interpretation Comments PRA,LC/MS/MS 1.51 ng/mL/h 0.25-5.82 This test was developed (test code = and its analyti steven 5560762) performance characteristics havebeen determined by [facility].It h as not been cleared or approved by FDA. This as say has been validatedp ursuant to the CLIA reg ulations and is used for clinical purposes. VALENTE (test Performing Lab code = VALENTE) EZ [facility] [address] [place] [address] Mark Encarnacion MD, PhD, AMINA [facility] HospitalBody fluid cell count with [id number] 18:33:00 Test Item Value Reference Range Interpretation Comments Appearance (test code = 9335-1) Hazy Clear A Color (test code = 6824-7) Cele Colorless, Straw A RBCs (test code = 74812-6) 4000 <=1 /cu mm H Adjusted WBC Count (test code = 86 <=5 /cu mm H 17917-6) Lining Cells (test code = 1 <=1 /cu mm 43497-4) % Segs (test code = 53205-9) 7 % % Lymphs (test code = 94817-2) 83 % % Monos (test code = 05161-0) 10 % % Eos (test code = 13578-5) 0 % % Baso (test code = 52398-0) 0 % Container Body Fluid (test code Sterile Vial = 2873) Lab Interpretation (test code = Abnormal 45742-6) [facility] HospitalBODY FLUID CELL COUNT WITH [id number] 18:33:00 Test Item Value Reference Range Interpretation [...] = 2873) Peripheral Blood Smear - Hold [id number] 15:19:00 Test Item Value Reference Range Interpretation Comments Peripheral Smear Save (test code = saved 1815) [facility] HospitalPERIPHERAL BLOOD SMEAR - HOLD [id number] 15:19:00 Test Item Value Reference Range Interpretation Comments PERIPHERAL SMEAR SAVE (BEAKER) (test saved code = 1815) [id number] 14:41:00 Test Item Value Reference Interpretation Comments Range Aldosterone (test 22 ng/dL Adult Ref erence code = 5488801) Ranges for Aldosterone: Upright 8:00-10 :00 am < or = 28 ng/ dL Upright 4:00-6: 00 pm < or = 21 ng/ dL Supine 8:00-10 :00 am 3-16 ng/dL Th is test was developed a nd its analytical perf ormance characteristics havebeen determ ined by [facility] .It has not been cleare d or approved by FDA . This assay has been validatedpursua nt to the CLIA regula tions and is used for clinical purpos es. VALENTE (test code = Performing Lab VALENTE) EZ [facility] [address] [place] [address] Mark Encarnacion MD, PhD, AMINA [facility] HospitalT Spot [id number] 13:05:00 Test Item Value Reference Range Interpretation Comments T-Spot TB (test code = 17134-0) Negative Neg Ctrl Spot Count (test code = 0 96101-1) Panel A Spot (test code = 66931-8) 0 Panel B Spot (test code = 38992-0) [address] (test code = 0 84177-7) Scan Result (test code = 1418842) [facility] HospitalT SPOT [id number] 13:05:00 Test Item Value Reference Range Interpretation Comments T-SPOT TB (BEAKER) (test code = Negative 1683) NEG CONTROL SPOT COUNT (BEAKER) 0 (test code = 1684) PANEL A SPOT (BEAKER) (test code = 0 1685) PANEL B SPOT (BEAKER) (test code = 0 1686) POS CONTROL SPOT CT (BEAKER) (test 0 code = 1687) SCAN RESULT (test code = 8621064) BLOOD [id number] 13:00:00 Test Item Value Reference Range Interpretation Comments CULTURE (BEAKER) (test No growth in 5 days code = 1095) BLOOD [id number] 12:00:00 Test Item Value Reference Range Interpretation Comments CULTURE (BEAKER) (test No growth in 5 days code = 1095) [id number] 10:25:00 Test Item Value Reference Range Interpretation Comments CORTISOL, TOTAL (BEAKER) (test code 5.1 ug/dL 3.7-19.4 = 2755) Civil Drafting Technician ID - TUAN CCOMPREHENSIVE METABOLIC [id number] 10:23:00 Test Item Value Reference Range Interpretation [...] S NOT APPLICABLE FOR DIALYSIS PATIEN TS. Civil Drafting Technician ID - TUAN CSpecimen moderately ictericVaricella zoster antibody, IgG 2020-01-21 10:15:00 Test Item Value Reference Range Interpretation Comments Varicella IgG (test 3.6 code = 20289-8) VALENTE (test code = VALENTE) VARICELLA ZOSTER RESULT INTERPRETATIONS: <=0.8 Al Nonreactive: Presumed non-immune to VZV 0.9-1.0 Al Equivocal >=1.1 Al Reactive: Presumed immune to VZV [facility] HospitalRubella antibody, [id number] 10:15:00 Test Item Value Reference Range Interpretation Comments Rubella IgG Quant (test 127.0 <8.0 IU/mL H code = 8014-3) VALENTE (test code = VALENTE) Rubella IgG Result Interpretation: </= 7.0 IU/mL Negative - Presumed non-immune 8.0 - 9.9 IU/mL Equivocal >= 10.0 IU/mL Positive - Presumed immune Lab Interpretation (test Abnormal code = 59901-9) [facility] HospitalRUBELLA ANTIBODY, [id number] 10:15:00 Test Item Value Reference Range Interpretation Comments RUBELLA IGG QUANTITATION (BEAKER) 127.0 IU/mL <8.0 H (test code = 572) Rubella IgG Result Interpretation: </= 7.0 IU/mL Negative - Presumed non- immune 8.0 - 9.9 IU/mL Equivocal >= 10.0 IU/mL Positive - Presumed immune VARICELLA ZOSTER ANTIBODY, [id number] 10:15:00 Test Item Value Reference Range Interpretation Comments VARICELLA ZOSTER IGG (AL) (BEAKER) 3.6 (test code = 3197) VARICELLA ZOSTER RESULT INTERPRETATIONS: <=0.8 Al Nonreactive: Presumed non-immune to VZV 0.9-1.0 Al Equivocal >=1.1 Al Reactive: Presumed immune to VZVReticulocyte [id number] 10:12:00 Test Item Value Reference Range Interpretation Comments % Retic (test code = 5.3 % 0.5-1.7 H 36898-5) VALENTE (test code = VALENTE) Civil Drafting Technician ID - [id number] Lab Interpretation (test Abnormal code = 11071-5) [facility] HospitalRETICULOCYTE [id number] 10:12:00 Test Item Value Reference Range Interpretation Comments RETICULOCYTE COUNT PCT (BEAKER) (test 5.3 % 0.5-1.7 H code = 575) Civil Drafting Technician ID - [id number] 10:06:00 Test Item Value Reference Range Interpretation Comments PHOSPHORUS (BEAKER) (test code = 3.1 mg/dL 2.3-4.7 604) Civil Drafting Technician ID - TUAN [id number] 10:06:00 Test Item Value Reference Range Interpretation Comments MAGNESIUM (BEAKER) (test code = 1.7 mg/dL 1.6-2.6 627) Civil Drafting Technician ID - TUAN CHEPATIC FUNCTION [id number] 10:06:00 Test Item Value Reference Range Interpretation [...] (test code = 12 U/L 6-55 347) Civil Drafting Technician ID - TUAN CSpecimen moderately ictericRAD, [...] Walker Verified Date/Time: 01/21/2020 10:03:32 Reading Location: [facility] Radiology Reading Room XR chest 1 view portable / [id number] 10:03:00 Interface, External Ris In - 01/21/2020 [...] Walker Verified Date/Time: 01/21/2020 10:03:32 Reading Location: [facility] [id number] 09:59:00 Test Item Value Reference Range Interpretation [...] PERCENT (BEAKER) (test code = 2801) PROTHROMBIN TIME/[id number] 09:53:00 Test Item Value Reference Range Interpretation [...] Verified Date/Time: 01/21/2020 07:51:30 Reading Location: [facility] Diagnostic Imaging Reading Room - [place] [id number] MR abdomen without IV contrast 2020-01-21 [...] Verified Date/Time: 01/21/2020 07:51:30 Reading Location: [facility] Diagnostic Imaging Reading Room - [place] [address] 1129 [facility] Type and screen, frzamiezy0537-76-65 22:06:00 Test Item Value Reference Range Interpretation Comments ABO/RH AUTOMATED (BEAKER) (test A POSITIVE code = 2260) Ab Scrn (test code = 890-4) [facility]GATIVE [facility], NON [id number] 21:16:00 Referring: Dr. Rowdy Zhang for exam:->JVD [...] MDReport Verified Date/Time: 01/20/2020 21:16:28 Reading Location: [address] Transitional Reading Room Cryptococcal yzyeczh3969-87-46 11:36:00 Test Item Value Reference Range Interpretation Comments Cryptococcal Antigen, Serum Negative Negative, Interference (test code = 28862-7) Lab Interpretation (test code Normal = 93207-9) [facility]CRYPTOCOCCAL [id number] 11:36:00 Test Item Value Reference Range Interpretation Comments CRYPTOCOCCAL ANTIGEN, SERUM Negative Negative, Interference (BEAKER) (test code = 1828) CBC W/PLT COUNT & AUTO [id number] 09:56:00 Test Item Value Reference Range Interpretation [...] CONCENTRATION Decreased (CELLAVISION)(BEAKER) (test code = 3438) Civil Drafting Technician ID - [id number] ID - Lizett OverholtUser comments: Slide comments: COMPREHENSIVE METABOLIC [id number] 05:46:00 Test Item Value Reference Range Interpretation [...] S NOT APPLICABLE FOR DIALYSIS PATIEN TS. Civil Drafting Technician ID - MITCH LSpecimen moderately obbyqjzLTVPODPKTV9943-83-64 05:37:00 Test Item Value Reference Range Interpretation Comments PHOSPHORUS (BEAKER) (test code = 2.8 mg/dL 2.3-4.7 604) Civil Drafting Technician ID - MITCH [id number] 05:37:00 Test Item Value Reference Range Interpretation Comments MAGNESIUM (BEAKER) (test code = 1.9 mg/dL 1.6-2.6 627) Civil Drafting Technician ID - MITCH LHEPATIC FUNCTION [id number] 05:37:00 Test Item Value Reference Range Interpretation [...] (test code = 9 U/L 6-55 347) Civil Drafting Technician ID - MITCH Rodriguezn moderately ictericPROTHROMBIN TIME/[id number] 04:53:00 Test Item Value Reference Range Interpretation [...] is2.5-3.5 for patients wiht mechanical heart valves.CALCIUM, [id number] 04:45:00 Test Item Value Reference Range Interpretation Comments CALCIUM IONIZED (BEAKER) (test 1.14 mmol/L 1.12-1.27 code = 698) PH, BLOOD (BEAKER) (test code = 7.36 1810) Sodium, random pnols9947-66-27 00:37:00 Test Item Value Reference Range Interpretation Comments Sodium Urine (test <20 meq/L code = 2955-3) VALENTE (test code = Reference Range: No VALENTE) NormalsOperator ID - PIAYA L [facility] HospitalODIUM, RANDOM [id number] 00:37:00 Test Item Value Reference Range Interpretation Comments SODIUM URINE (BEAKER) (test code = < meq/L 243) Reference Range: No NormalsOperator ID - PIAYA LUrinalysis w/Microscopic 2020-01-20 00:30:00 Test Item Value Reference Range Interpretation Comments Color, UA (test code = Yellow 5778-6) Clarity, UA (test code = Hazy 5767-9) Specific [place], UA (test 1.017 1.001-1.035 code = 5811-5) pH, UA (test code = 5.5 5.0-8.0 5803-2) Protein, UA (test code = 20 mg/dL Negative A 35164-3) Glucose, UA (test code = Negative Negative 365) Ketones, UA (test code = Negative Negative 2514-8) Bilirubin, UA (test code = Negative Negative 83446-0) Blood, UA (test code = Small Negative A 59190-0) Nitrite, UA (test code = Negative Negative 5802-4) Leukocytes, UA (test code Trace Negative A = 5799-2) Urobilinogen, UA (test 0.2 mg/dL 0.2-1 code = 05720-2) RBC, UA (test code = 1 /HPF 52092-1) WBC, UA (test code = 3 /HPF 5821-4) Bacteria, UA (test code = Rare 13529-4) Squam Epithel, UA (test 3 /HPF code = 99602-0) Hyaline Casts, UA (test 3 /LPF code = 43882-8) Specimen Source (test code = 2795) VALENTE (test code = VALENTE) Civil Drafting Technician ID - [auto]Civil Drafting Technician ID - tech Lab Interpretation (test Abnormal code = 07346-1) [facility] Hospital[facility]inalysis w/Microscopic + Reflex to Culture 2020-01-20 00:30:00 Test Item Value Reference Range Interpretation Comments Color, UA (test code = 5778-6) Yellow Clarity, UA (test code = 5767-9) Hazy Specific [place], UA (test code = 1.017 1.001-1.035 5811-5) pH, UA (test code = 5803-2) 5.5 5.0-8.0 Protein, UA (test code = 15277-5) 20 mg/dL Negative A Glucose, UA (test code = 365) Negative Negative Ketones, UA (test code = 2514-8) Negative Negative Bilirubin, UA (test code = 10492-0) Negative Negative Blood, UA (test code = 75781-9) Small Negative A Nitrite, UA (test code = 5802-4) Negative Negative Leukocytes, UA (test code = 5799-2) Trace Negative A Urobilinogen, UA (test code = 0.2 mg/dL 0.2-1 55244-2) RBC, UA (test code = 05865-8) 1 /HPF WBC, UA (test code = 5821-4) 3 /HPF Bacteria, UA (test code = 25715-6) Rare Squam Epithel, UA (test code = 3 /HPF 00119-3) Hyaline Casts, UA (test code = 3 /LPF 90402-0) Specimen Source (test code = 2795) Lab Interpretation (test code = Abnormal 69011-9) [facility]/ REFLEX URINE [id number] 00:30:00 Test Item Value Reference Range Interpretation [...] SOURCE(BEAKER) (test code = 2795) URINALYSIS W/ [id number] 00:30:00 Test Item Value Reference Range Interpretation [...] /LPF 514) SOURCE(BEAKER) (test code = 2795) Civil Drafting Technician ID - [auto]Civil Drafting Technician ID - techActin (Smooth Muscle) Antibody, [...] of patients withautoimmune hepatitis (AIH) type 1, mfptogtzpugrh45 % of patients with autoimmune cholangitis,lis sherine mately 30% of patients with primary biliarycirrhosi s, and approximate ly 2% of healthy people.High beatriz ues are closely correlated with AIH type 1. VALENTE (test code = Performing Lab VALENTE) [address] [address] Mark Encarnacion MD, PhD, AMINA Lab Interpretation Abnormal (test code = 49249-7) [facility] HospitalZinc2020-06-24 20:06:00 Test Item Value Reference Interpretation Comments Range Zinc (test code = 39 60- 130 mcg/dL L This te st was ) developed and i ts analytical performance characteristics have been determined by [employer] . It has not been cleared or appr jean-claude by theFDA. This assay has been validated pursu ant to the CLIA regulations and is used for clinic al purposes. VALENTE (test code = Performing Lab VALENTE) *BEATRIZ [employer] [facility], [address] [place] [address] Jorje Jauregui MD, PhD Lab Interpretation Abnormal (test code = 31372-0) [facility] HospitalTissue [id number] 16:12:00 Test Item Value Reference Range Interpretation Comments Case Report (test code Surgical Pathology = 104) Report Case: [id number] Authorizing Provider: Sylvie George MD Collected: 01/17/2020 08:15 AM Ordering Location: [address] Nursing Received: 01/17/2020 01:50 PM Service Pathologist: Humaira Mendez MD Specimen: Duodenum, biopsy ADDENDUM (test code = u1evsJLjNVBggOLePbJeMG 3381) PyHPYxz3ycUNQdtFCmIbUt MzNcZnRuYmpcdWMxXGRlZm Xlf9xvz341eQJjc1leWWEn JdO7jVXjJOKomWYhL416PH GsBGbhr7ztb9VoWKPieKUr d2E2LAECtjlaqSu8vTukB4 6hm6T8PyzqI0loGLAhHXYi U1MtVF7cONHrFau8SGO9BE X7UUFgLEEkW3VyOI7yDGGl dMPiVWl1v9gwpCtaUWVfGH H5r7riELevizOrDA0dal5r iRi7s9wgijFvXAMqMXFgpU OFTOLoP2NzxBhnWd2ydDx3 sKlrFlbaHVQ2Opc7DM6chz 67zkf4tLopWPJvfjmtEmG0 UUgoKENjuoeoOFk8KOfpLC JkaZC5DXEwcSTlN2RwJWXp VF1nztu0FST4QTaxNYNfOd B9QJQsbEOtJKOsuEawVDxw x657LYD8FdFbFQ7lE4Lua4 O4iS2tiZLrNNVmuNEvYuVs SZEryi2puBKeQOlqb3ZaDM R3wmA7hNXhaVUvTKRoCP30 Ktvmh5WrWusdWGZ8OCKhud Ihk9Rnx7ycCcCwobAkX6sv D2CrWUShQYMbLSIzMcTclu Jag6Onu8LavLSkmCh0t3tz ETUzAINbbFonr6nnLYW5RF LmZ1C8xJYxd7ebEFiuMMUs eDL3ooK7IOUfqUWlN4UphQ 8cQWPoVQ7lwpt1v3fmECF9 KAqaQQEuOyN9hqB5LYXrgA XuUHIftBabNXcjs186PMP4 RfXsQXYcc3JsN3CcvBkoP8 7rdZoxT02zTMTidZefcI3a qKqtoM4lHfHyAoFuTRwuOR JkXHBsYWluXGYxXGZzMjBc bGFuZzEwMzNcaGljaFxmMV dkQkLyCVUyGQusO0ymBbSp SiVmVJWGKArEVXZDMX1KMY 8PAYxKYElIM3VNEOMAPaEH RVBPUlQgVEhFIEZJTkRJTk dTIElOIFRIRSBERUVQRVIg VSQCSKnCVZ4MPQDAFGJJDQ 7GW3odXN7XGKaRKyCbISfU REBQCuIYQZVMWUmXI4KMBa pccGFyXHFsXHBsYWluXGYw XZKqJuMmeEgmbM3rBwEvGy SxYRrlFO8qXTZgU6uubHEu WTCbLTOsX4reKcPaeJ9erU xmMVxmczIwXHBhciAgRFVP CPKQDX5uULAJWJ7LS17QYB MgQklPUFNZOlxwYXIgICAt WWLAKSGWDYMjXhFVL1MVIa JLWfVUYWJfIYKTEB5ZTZRS R2OVBCDoNRGKQ4uUI3FCOs ZaO7OsHZ8QJQAOPYSBA5FH Ep5IHPJLBCkvGZTaYNJqPL 9QRRTIUIHYRaVUKJ8ZMRYF TElBQyBESVNFQVNFIFNFRU 5ccGFyICAgLSBOTyBHUkFO VUxPTUFTLCBEWVNQTEFTSU JyV0CtUYZMSKkFEU1CAQXQ RUVOXHBhcn0= DIAGNOSIS (test code = v6vdeZBgCCYud8pxRTCygA 3220) FuZzEwMzNcZnRuYmpcdWMx WOiyuzPcILblx7QyO9DrQk AwMFxhbnNpXGRlZmxhbmcx ELWaQDI4sbLxILQeSLdkGK FbHHolXw9rxXQgsDshDuOl SYBbd2youaJJcbgdwTm7l1 ziEYVcUwS8aTPtWIopD5xg inIggRPgXIGeMXo4lH08ZN HanC1opPFhUQqysfZsGyL0 RUlmXWMtUtR9NKRmnWUbSI AeU1onBGYmSMsjXWNkYUsy bRKcTBC1fNzbf7L9mJCyoN OkfRqpNsWqPdIgYRLBm0Fi HXc7oIkgA1QxSDNkVrY1eG QgUGFyYWdyYXBoIEZvbnQ7 oI65KGsoyfN9uRTik6Xqs5 6in926zK3hdVIxJYI6VEXo QDTdjBTrJBWcSPX0ABOtpA FxU6m1McVfoEDoP0Z9DfQp jILfJ5K7WgCwfXYdQ8G7Mw JuwMJsZENuxJKzPv3toRRs jVVthj0jja06XJQ5e5UjwO gfFOB6PUW7ZtDlVr3qoHZw HNUpVU9qJnPmhSTaWSXjjn 70sMstHHdqfoEkqB1uDnTa ENEnqJFsCHTxKW7neCWoBY VlhO6ywpooLMAoSrTkmfib AOFfvLrrkuSnEm1ijKjvXQ B3EJnoJ7qlfV5fSvM9MLkh E9bmtF6zMHn0ABsbfZO8MO HmvR3uVO7gpiskl5wvLnWw TW7ttaapm2ohKkLfGP3gxs h1a9xnMfXsBF3jmsiqu7gt NzIwXGhlYWRlcnkwXGZvb3 QdppewWHBni7ErV6GkzRud A57bfSpbG16bPIBkeJwwlX 2yeWtkvS4cAuBfJyGyQXnr bFxwbGFpblxmMVxmczIwXG ogbudfHLGwVCmfX1hlVgFx ZJHheVnfCBvdz1XuMPWyRK BaOtYbPPHNYGLDWP0xBHOU PY3BQ34CDPMgNgaTVWHLDx zfGZMbUIViZ3JGDXFATEQS JVyuBlUGK25WYuUFRE8ATV YBKEtXZUZSG8FXCK5NY26E BPCSUWNYDTjDA2TNUBVsRi 9GYI5RJSGkHNTDYYVERXMK MIwrOGPzdWZcWJNelb86FG V5FeNiz6C1XDB7QSIlONLw v1jyTZSwtUWfPiBiUsRwXb QwVleofYDeDPIuSoPqy3oz y993bPLsu2onOEDzOoQ3cX EpNTLrlCTiS285JOGjEWel x2nxm7JtKUEwvUMoo7V8LM GOzbkkuXc2rQbvT66vv2W2 TwrwS8ntNQSwPWHsG2WtCG 0qYZHvRip8VVP4QMH2TGWa PBJpF2DsEG6hRMEzrUKwSV q1b7hfpChpRBGmIYQ7e6sz XTxqitBzQE6rkt0hcEq9e9 xjczEgRGVmYXVsdCBQYXJh E7DqdUorLp5oxWz5yPzsVl qnDBS7Mfs6OF1nmi29tqb5 qQkaFSUdfaheEpO0SMsxTX BtrmchPEd3OFpjSXAzqGI0 IUYjlMFdA1NdWQRwPL7vpo w7YRR6JMnoAFCcKxE1XDIt hGUiBOWfaGpbJTdnw586UK D1ZgAgJZ1wK1Aif7Y6yA3p aXRcZGVmdGFiNzIwXGZvcm 7dzYBwEFrgb7XwZUB5shO2 tBEnbOQqISJtPkO4LZgyNP 8kdl82PXDzYIY6qa8moFUv fTdtruGpaNBeIBxfF5OvDT Ypx482SVXrG0GxTPPpl2W5 meDzUbRqNKSpfUW5dlX3VM LuLI7weohuy0gwCAhzPLkx VHKdxaZ7imC6MFObvCVfG8 OeiQ2xSUWhAP8trwzmj5te GJO6TVdoIFKmNIT4WiNuIZ Ocp0Prohv2YtFtv1WbuSCk IRweJ41mb640FDDmyfMoK1 xwbGFpblxwbGFpblxmMFxm maZ0IHLrHBxolannLDVjKJ axM2tvTfCnVUJxkAomKBuv w0YpWVDbRRBwZuKcvKOrWM EbUxp3QAXqeWCoCMMiZbXg X3ztjebaOiKMRLNsj8jrB0 dsoCGJyLQwE6CxQSyfhqAj OEjiSZezDRB3ENZ5Mq21Ny I1DCShng53 CPT Code(s) (test code r1yuiYQvAMBovWTaUtXnZW = 3357) ImOWIsg7ppHQHghYXlNzFt MzNcZnRuYmpcdWMxXGRlZm Pqm2qzv291eIKfr8urALLv HoO7xAZcCNGwhLLbW821t8 dto4mqydHmqBA6HXWaBQK1 CGarifUqybY6TVdzdDYfCe Y0DGsvjuUtVIdqtvRlpbEg Gdb1IGVzG179HYF5rMfhq6 mtFGP6YYVkBQTrDmHtDf1y cGMyI425PYOlKEJGXRMckA v6CSYmfpCrwlFxgQKBd317 M822q3jzXJYduxGmjKyUlb twb8vmZ590WRMvsDCjhkIn KmRgMAMdgSVscUS2NOFgWA 4uthymTfMjNB5katujXoGv FQ9thrr0FtTfAY5xanmrYy CrFZkjDTNhimzcJCJyz6Ea tovzNN1nX7Elm3H0pF5stN DhYJIndQSkYcBuHUVqmn1z hHBvISvwr9FqKSJ6ejJ2cL WwkZXeMPHoFW55Iirzv7Vi YyabDRS2VAYevwJny1Brl8 yeXsOhqzBmY6ivR9EvATTi UMJnWOLwEyKwddIeg5Dqv9 JceUNwgNl1m7wkZHCiLGKq dEkhd5mlXGG9SDOmM0L9jR Neh3dwECvdWDDrhLP6vruq DSkuUMXuhtK1nskuQTfkFG YvhEV1iogoOZnaCPIkCpC2 pobqVPgsIUMlXCZ4BMmmt1 20GUX4JGdpVizmMGolVVHq bmNvbnRccGduZGVjXHBsYW luXHBsYWluXGYwXGZzMjRc sQcllBwadR1mPqZdVhXtLP dkUG2aSYGoU4eciLAaLIAh EKQtI4reQyChnT1ieSdrAE adcvDnJFn8IpZ1YHJfyy7= CLINICAL HISTORY (test t2pynCGwXLVwcXYyFmQnIO code = 3356) JsIZRxg5jyBLMaeQPcIcJo MzNcZnRuYmpcdWMxXGRlZm Yvc2fuc008wSFjd5kiIHFm PbO2yUQtRAIdoZZtS772FI LfYOgvr1ieo3TkHTUnrPSw n4N0XHELfhwdoDg9aNrrO0 4xg4J6BukjR3ewYMOiUHcb GRSfLPjgcKYeUSV6SOGgXN A4EMuqciHhkwX4HSyvyPPt UbD1EGr4d3guwMtyOJFiOR B8g7fwQJwrqhUjPQ5cci5o wFv7d8kcfsVjYZElADEswT XWGWNcU6PjsZxoVu1klEk1 zMqzPbifYQH3Lpj9LE8uvb 00ofm9iJgaKFGqbhliCqS1 GDksCQGkjeohBAs3GLeoRJ JnbDcyMFxtYXJncjcyMFxt YXJndDcyMFxtYXJnYjcyMF mbOXOdQMV1QQvgm616VYE5 FVepe5dil3bhtRIsLdi7BQ LnEhTuIuqvZKdim9Yck7no ELQqqm0xCYE2pGBxeUfsc3 I1rQGqXAGofZZnavEmGBDd CiU7YNgnSP5drl76UJJaJU M5xj9ogADzsFjtomZdtCEz UGdvR4QxKQCte430VMAgW3 RhRAXtu8P1aqPxZyFqPMOz xNX4lwY4MYPcOUp7xEAbaa W8snHekWSaU9srpC21NpHp qLOoP1DxoY09EaRqfXOmG2 GvvT90HzNhuYInS3PayJ88 YrOvaWQgHXIddQDsAb5atH LpbTMxu3GbgBVqRFkoT54j q348FTDfsjOiR6vsnKLjqg xwbGFpblxmMFxmczIwXHFs XHBsYWluXGYwXGZzMjBccG cjoV9aAeBfEjLhJDRWlk3x RAS1frZ5RBYhkCKaKUTkTB 0xA75znOokWxffcQT6BPSi IVUpa3pgbd1aA18leMTgoN RjRBIqYXGkrsLbmL3siE5a NEZvPHyrt3NyharpNG2ubU lhXHBhcn0= SPECIMEN SOURCE (test w1kauRVmHYUvtEUiLvCvYV code = 3377) WjDRPeq1laEUUkvLGuIuMl MzNcZnRuYmpcdWMxXGRlZm Ixx8dzu926eCRlk1ztEJKn LhM6pHHkVESvaDEuM657h4 evd8jkehVxyWZ7DGOaKBF3 HGshbdYxqcZ0ZGxzyTIoBo N9KUjvaaDaDXmkdtOeftAj Kmo3DEPbX284WFZ7wNkhf6 ptSAT7FNZlOQGoLqGfCf6m tCFsN172VIWnIHUGNFDypK f4CPQdghSsigJufLZJz930 V103p9ykMIKjxlTplNsZoo fsk5duB770VHXwmPBmkaMu UtFtVUAmuTHkeEK8BBHwPP 4atfgkTfWnSG7odnqnInIc HJ5zjku6WiBbCG4ijapyWg WtUWqfJNDmsyosNMLag5Ws rrayNQ1cL9Exo9R8sM1mhI QhCLWkhGDfVuZiMXXtyu0h yAHkUOwgv8AoMBL6rlA7eA YtrHPoMJBxAD54Dnkyd6Mf MmdcREK5HJBdshSrv9Voj7 toVbHbgdPsP3zjU0PiRSXg YWKhKIZqVoWkmpCad3Azh8 VwnAMnlRa4f8ioWHJaPKTq iBrru1gcZFR5MQQeW8K7sF Afk2kmLEapKXPyjZX7vuad FIkqLTVcsgN6hplbKRpwHI WozFJ5snazPIvjFFWrLwR2 smexJUseBSSoMSO5JTqby9 72XRP7DOsrTsixCTyxNVSr bmNvbnRccGduZGVjXHBsYW luXHBsYWluXGYwXGZzMjRc iXlvfWrdsN3uJyCbUuGcVX kdBO2uIGFcT2jbnATiRDGf MXWkO4lkMpYytC7uiXpzLX wkzeTdTVAfFWJ7l1DjpoQi MuQehU2en0kkbNPckM== GROSS DESCRIPTION (test d6ftpSNgJFSstGWrFhReYL code = 3366) NgWCIen7cmWWScrTWkLoDs MzNcZnRuYmpcdWMxXGRlZm Djz9sok199yVZmh2ynDALt XqO8cHBwPNFyjRGvH014GH UhFIrit1vih4BxIYJpgJFl h1Z2OPXVblyugYy8hOblI8 7lz5U7WizdP0anLCWwJPii GXTeCNcngKMbTLK1OCOhUD F4FGjwwaTdcwU4SClqzPDe OvJ1XWv7a3ommLicFWWrYH F1l1lfVEkiinBpXK4cbz2y hXb6e9wotuKdRGCbLVAarD AKZYTkW3HvxBtwEt5hcJy7 wCzzDexePTY6Ero1US6fhj 51msx5vGnfHGPyagvaSeD8 BDphFDPjcakhYUo9WFfaMH JnbDcyMFxtYXJncjcyMFxt YXJndDcyMFxtYXJnYjcyMF brIVJiLVO0JLibw969RWW8 TNrpn1qhc7axcJYbYwx7GA YiMvXfMvagHAvrb6Oyj8in CVAbbd2zGET0tRCblHwvi9 O1gZUwFDZwoSPeybYoNCPg LcY1EVufFF4tzw62FOFbOZ R6me9uiEBfdJelupLnySUr HYojF8BsDJXls406CECoW8 ViAIVsy2M0oqUdPtVoGJIt bKP7trV7GRPsCMz4oLIocm E9ugBsiZYeD7ninL26WbLu iUJfP3ZkxO23EzYhdJCvK6 YltC91XhWhsMAmD1GbsL23 BtDcoCUyTKKnaFBgQj3fwC GriKOzg0NxlLIyFCuzH44r t266LKKwlfZjC4tkbLPpdg xwbGFpblxmMFxmczIwXHFs XHBsYWluXGYwXGZzMjBccG ajmR3qNuKzEbTsXVLVKeOX vWVko9UvI7lzDL5vaWIgkp EmSNs1JWMayI6kRl9dmSVt uM8lGFLoEBtxGIFiEPXhOj PgdYMbTSspPLM5hXPkGKMu GSIfXRYqSW60N1HhdmWkQR enLMYwTQDuzY1vLN65lDEf ciBhbmQgIlxwbGFpblxmMF nwtsOoVYP0v4DvpxQpXiFw hpLlH27oe0ohaYYdr9Zgg7 3nHOTfij1hsX7yFHhmdIKb nhltYGibdiEtRY63H07bEB ntK881XANdOLrgaLIcdcpk MFxmczIwICBwaWVjZXMgb2 HqxGzou1VrBJ3aEPF6zkrt ZyAwLjMgeCAwLjIgeCAwLj QoR58bKViolOSltdgmDIlz zeXsAEUdUCFhkBNcbG7qdy HodnAouPYcfGR7NOMeOK01 oGGycAkhHb0isA60gF7rAJ OacAIoAIBgj70lrK6xOVUv XMFmLGN0PMUmhSyovQ1cKi FyHmGqQCKIWN5yVUcON8Iy XHBhcn0= MICROSCOPIC DESCRIPTION o1jmiPDkFLHogBEiUcSmIP (test code = 3371) FzAVYai2otHLXvlYEjNyLc MzNcZnRuYmpcdWMxXGRlZm Tcq9etp906dXWtu5ppLLLp NpM0zBGvYPMejWViH554x3 hrl1zdrcMtuGC7WAAuXRC0 SWleznDheqH8IKalmJLgWs G0RTjxdhXiVFepqbJwppZo Ddf4WBQpR591VIV6qRucd7 bwJDP5GXYmFWLgQkLjKk3f fBPyV873TXSiZYWPIDUfpU b8ZKDbudKmirVoeXATo791 K292k6rgRNIoprNjnQiOud xuk1tkR705FMLhyXWpkqCu MsFwESZrwXQybWO8VNOlYZ 2hmliaTuBpLJ2vmqvaUwKx CY5znvj0KzUiWY0whoiwQj UlGPvdUDPwrhvcKVNwz8Hm eqteRU9tJ4Sea9G2cH8ayB VeLCLutZWsTjQuCODosm7z vLYfTGpuw2NaQCI8soC7yA TbbLXdHDCjXQ82Tfvzp3Lp WtztRPB6WXPyjyHfc2Pnb7 lvSpLxihLrH6feR5WjKRRs XLRpWRHlKdIhdkFmz4Nqj4 IcjXNyqZf0c8mdOMXpNDAz zVhnq0yxWEB9HAZgP6W2tN Bvy4ukOVewQXYwlPN4vhmh GXrbBYSuwiW0xlfrEMjjCJ VoqIG1grzzZJyiEKQsHuI5 mynpTFczPNWgAQK1PDvsi0 12KHM4LRsrSdedTGwjTTJu bmNvbnRccGduZGVjXHBsYW luXHBsYWluXGYwXGZzMjRc dBccfRjbaY3eMgQrGbCeHD xiIW3uFQIxE3gryDXkTDUo ASRmV7adTjGlcA4dxCsrVM zmiiLeWLEGCnPFGc3ZNGpy YXJ9 [facility] [id number] 16:12:00Surgical Pathology Report Case: [id number] Authorizing Provider: Sylvie George MD Collected: 01/17/2020 08:15 AM Ordering Location: [address] Received: 01/17/2020 01:50 PM Service Pathologist: [...] FOVEOLAR METAPLASIA Signing Pathologist Direct Phone Line: [phone] signed by Humaira Mendez MD on 01/18/2020 at 3:50 [id number]: upper endoscopy, biopsy and colonoscopy Pre and postop diagnosis: anemiaA. Duodenum; biopsyA. The specimen is received in formalin labeled with the patient's name, accession number and "duodenum" and consists of one garduno-pink mucosal-covered pieces of tissue measuring 0.3 x 0.2 x 0.1cm. The specimen is submitted entirely following filtration in a cassette A1. HS/plPERFORMEDBlood gas, [id number] 16:03:00 Test Item Value Reference Range Interpretation Comments pH, Arterial (test code = 2744-1) 7.42 7.35-7.45 pCO2, Arterial (test code = 36 35- 45 mmHg 2019-02) pO2, Arterial (test code = 78 80- 90 mmHg L 3-7) O2 Sat, Arterial (test code = 96.2 % 96-97 8-6) HCO3, Arterial (test code = 23 mmol/L 21-29 1959-4) Base Excess, Arterial (test code -1.9 mmol/L -2-3 = 1925-7) Patient Temperature (test code = 36.1 C 8310-5) FIO2 (test code = 1819) 28 % Lab Interpretation (test code = Abnormal 38639-9) [facility], [id number] 16:03:00 Test Item Value Reference Range Interpretation [...] (BEAKER) (test code = 1819) 28.0 % [id number] 15:05:00 Test Item Value Reference Range Interpretation Comments Ceruloplasmin (test code 21 mg/dL 18-53 = 20190918) VALENTE (test code = VALENTE) Performing Lab *BEATRIZ [facility], [address] [place] [id number] Jorje Jauregui MD, PhD [facility] HospitalCarbohydrate antigen 19-9 (CA 19-9)2020-01-19 12:51:00 Test Item Value Reference Range Interpretation Comments CA 19-9 32 U/mL <34 This test was (test code = performed using the 18700-4) Siemens Chemiluminescen t method.Values o btained from different assay methods cannot be used interchangeably .CA19-9 levels, regardl ess of value, should n ot be interpreted as absoluteevidenc e of the presence or abs ence of disease. VALENTE (test Performing Lab code = VALENTE) [facility] [employer] [place] [address] [place] [address] Mark Encarnacion MD, PhD, AMINA [facility] HospitalPROTHROMBIN TIME/[id number] 11:28:00 Test Item Value Reference Range Interpretation [...] patients wiht mechanical heart valves.MM, U/S, BREAST, [id number] 09:52:00Referring: Dr. Rowdy Zhang for exam:->liver transplant [...] Brooks MDReport Verified Date/Time: 01/19/2020 09:52:28 Reading Location:[address] Mammo Reading Room US breast [id number] 09:52:00Interface, External Ris In - 01/19/2020 9:54 [...] MDReport Verified Date/Time: 01/19/2020 09:52:28 Reading Location: [address] [facility], WITHOUT [id number] 08:09:00Referring: Dr. Rowdy Wileyesthesia:->NonePlease specify abdominal organs:->AdrenalFINAL [...] Verified Date/Time: 01/19/2020 08:09:04 Reading Location: [facility] Diagnostic Imaging Reading Room - [place] [address] [address] abdomen without IV contrast 2020-01-19 08:09:00Interface, [...] pleural effusion concerning for pneumonia. Signed:John Crocker Verified Date/Time: 01/19/2020 08:09:04 Reading Location: [facility] Diagnostic Imaging Reading Room - [place] [id number] Electronically signed by: JOHN CROCKER MD on 0 01/19/2020 08:09 [facility]CAL[facility], [id number] 07:59:00 Test Item Value Reference Range Interpretation [...] To Exercise midodrineConfirmed by fellow Bc Chávez ([id number]) on 01/18/2020 9:20:19 AMConfirmed by Shaq GARCIA MICHAEL([id number]) on 01/19/2020 7:03:55 [facility]COMPREHENSIVE METABOLIC PANEL 2020-01-19 05:21:00 Test Item [...] S NOT APPLICABLE FOR DIALYSIS PATIEN TS. Civil Drafting Technician ID - LASpecimen moderately [id number] 05:04:00 Test Item Value Reference Range Interpretation Comments PHOSPHORUS (BEAKER) (test code = 3.3 mg/dL 2.3-4.7 604) Civil Drafting Technician ID - [id number] 05:04:00 Test Item Value Reference Range Interpretation Comments MAGNESIUM (BEAKER) (test code = 2.0 mg/dL 1.6-2.6 627) Civil Drafting Technician ID - LAHEPATIC FUNCTION [id number] 05:04:00 Test Item Value Reference Range Interpretation [...] (test code = 10 U/L 6-55 347) Civil Drafting Technician ID - LASpecimen moderately ictericB-TYPE NATRIURETIC FACTOR (BNP) 2020-01-19 04:59:00 Test Item Value Reference Range Interpretation Comments B-TYPE NATRIURETIC PEPTIDE 2455 pg/mL 0-100 H (BEAKER) (test code = 700) Civil Drafting Technician ID - EDWIN BCBC W/PLT COUNT & AUTO [id number] 04:46:00 Test Item Value Reference Range Interpretation [...] (BEAKER) (test code = 2801) U/S, RENAL, [id number] 01:26:00Referring: Dr. Rowdy Zhang for exam:->Re-examine L [...] Sneed MDReport Verified Date/Time: 01/19/202001:26:59 US renal [id number] 01:26:00Interface, External Ris In - 01/19/2020 1:29 [...] Maira Sneed MDReport Verified Date/Time: 01/19/2020 01:26:59 [facility] HospitalEosinophil [id number] 22:11:00 Test Item Value Reference Range Interpretation Comments Eosinophil Smear (test Rare EOS =less than No EOS seen A code = 11076-1) 5% WBCs seen are EOS Lab Interpretation (test Abnormal code = 48532-1) [facility] HospitalEOSINOPHIL SMEAR, [id number] 22:11:00 Test Item Value Reference Range Interpretation Comments EOSINOPHIL SMEAR, URINE Rare EOS =less than No EOS seen A (BEAKER) (test code = 5% WBCs seen are EOS 1851) SODIUM, RANDOM [id number] 22:04:00 Test Item Value Reference Range Interpretation Comments SODIUM URINE (BEAKER) (test code = < meq/L 243) Reference Range: No NormalsOperator ID - EDWIN BCreatinine, random urine 2020-01-18 22:02:00 Test Item Value Reference Range Interpretation Comments Creatinine, Ur 181.3 mg/dL (test code = 2161-8) VALENTE (test code = Reference Range: No VALENTE) NormalsOperator ID - EDWIN B [facility] HospitalProtein, random [id number] 22:02:00 Test Item Value Reference Range Interpretation Comments Protein, Urine (test code 45 mg/dL 0-14 H = 2888-6) VALENTE (test code = VALENTE) Civil Drafting Technician ID - EDWIN B Lab Interpretation (test Abnormal code = 11872-7) [facility] HospitalCREATININE, RANDOM [id number] 22:02:00 Test Item Value Reference Range Interpretation Comments CREATININE URINE (BEAKER) (test 181.3 mg/dL code = 375) Reference Range: No NormalsOperator ID - EDWIN BPROTEIN, RANDOM [id number] 22:02:00 Test Item Value Reference Range Interpretation Comments PROTEIN, URINE (BEAKER) (test code = 45 mg/dL 0-14 H 1569) Civil Drafting Technician ID - EDWIN BURINALYSIS W/ [id number] 22:02:00 Test Item Value Reference Range Interpretation [...] (test Urine, Sterile code = 2795) Collection Civil Drafting Technician ID - [auto]Civil Drafting Technician ID - techHepatitis B core antibody, [id number] 16:02:00 Test Item Value Reference Range Interpretation Comments Hep B Core Total Ab Nonreactive Nonreactive (test code = 13381-2) VALENTE (test code = VALENTE) Civil Drafting Technician ID - CHARO F Lab Interpretation (test Normal code = 50867-2) [facility] HospitalHEPATITIS B CORE ANTIBODY, [id number] 16:02:00 Test Item Value Reference Range Interpretation Comments HEPATITIS B CORE TOTAL ANTIBODY Nonreactive Nonreactive (BEAKER) (test code = 497) Civil Drafting Technician ID - CHARO FECG 12 [id number] 14:19:40Interface, External Ris In - 01/18/2020 2:19 PM CDTVentricular Rate 62 BPMAtrial Rate 62 BPMP-R Interval 138 msQRS Duration 86 msQ-T Interval 452 msQTC Calculation(Bazett) 458 msP [place] 59 degreesR [place] 32 degreesT [place] 56 degreesNormal sinus rhythmLow voltage QRSNonspecific ST nkhaevnwbwj13 JUN 2020 11:05Nonspecific T wave abnormality Nonspecific T wave abnormality, improved inQT has shortenedConfirmed by MD FARHAT, JESSIE ([id number]) on 01/18/2020 2:19:38 [facility] Cytomegalovirus antibody, [id number] 13:49:00 Test Item Value Reference Range Interpretation Comments CYTOMEGALOVIRUS, IGG Positive Negative, A (test code = 3429) Equivocal VALENTE (test code = VALENTE) CMV IgG Result Interpretation: </= 0.8 Al Negative 0.9-1.0 Al Equivocal >/=1.1 Al Positive Lab Interpretation (test Abnormal code = 22939-9) [facility] HospitalEBV-VCA antibody, [id number] 13:49:00 Test Item Value Reference Range Interpretation Comments GABRIEL CHING VIRAL Positive Negative, A CAPSID ANTIGEN IGG (test Equivocal code = 3415) VALENTE (test code = VALENTE) Gabriel Ching Viral Capsid Antigen IgG Result Interpretation: </= 0.8 Al Negative 0.9-1.0 Al Equivocal >/= 1.1 Al Positive Lab Interpretation (test Abnormal code = 29375-1) [facility] HospitalEBV-VCA antibody, [id number] 13:49:00 Test Item Value Reference Range Interpretation Comments GABRIEL CHING VIRAL Negative Negative, CAPSID ANTIGEN IGM (test Equivocal code = 3418) VALENTE (test code = VALENTE) Gabriel Ching Viral Capsid Antigen IgM Result Interpretation: </= 0.8 Al Negative 0.9-1.0 Al Equivocal >/= 1.1 Al Positive Lab Interpretation (test Normal code = 86836-8) [facility] HospitalCytomegalovirus antibody, [id number] 13:49:00 Test Item Value Reference Range Interpretation Comments CMV IGM (test code = Negative Negative, 3437) Equivocal VALENTE (test code = VALENTE) CMV IgM Result Interpretation: </= 0.8 Al Negative 0.9-1.0 Al Equivocal >/= 1.1 Al Positive Lab Interpretation (test Normal code = 48398-2) [facility] HospitalCYTOMEGALOVIRUS ANTIBODY, [id number] 13:49:00 Test Item Value Reference Range Interpretation Comments CYTOMEGALOVIRUS, IGG (BEAKER) Positive Negative, Equivocal A (test code = 3429) CMV IgG Result Interpretation: </= 0.8 Al Negative 0.9-1.0 Al Equivocal >/=1.1 Al PositiveCYTOMEGALOVIRUS ANTIBODY, [id number] 13:49:00 Test Item Value Reference Range Interpretation Comments CYTOMEGALOVIRUS IGM ANTIBODY Negative Negative, Equivocal (BEAKER) (test code = 3437) CMV IgM Result Interpretation: </= 0.8 Al Negative 0.9-1.0 Al Equivocal >/= 1.1 Al PositiveEBV ANTIBODY, [id number] 13:49:00 Test Item Value Reference Range Interpretation [...] Negative 0.9-1.0 Al Equivocal >/= 1.1 Al [id number] 13:35:00 Test Item Value Reference Range Interpretation Comments T3, Total (test code = 3053-6) 51 ng/dL 48-159 Lab Interpretation (test code = Normal 82345-6) [facility] HospitalT32020-06-23 13:35:00 Test Item Value Reference Range Interpretation Comments T3 TOTAL (BEAKER) (test code = 656) 51 ng/dL 48-159 PET/CT, CARDIAC PERF REST AND [id number] 12:45:00Referring: Dr. Rowdy Zhang for exam:->pre op cardiac clearance for liver transplantFINAL REPORT PROCEDURE: MYOCARDIAL PERFUSION PET IMAGING (Rest/Stress)CPT CODE: 94947 INDICATION: Evaluation for liver transplant CARDIOVASCULAR PROFILE:Symptoms: [...] MDReport Verified Date/Time: 01/18/2020 12:45:40 Reading Location: [address] Reading Room NM Myocardial Perfusion Pet/CT (Rest & Stress)2020-01-18 12:45:00Interface, External Ris In - 01/18/2020 12:47 PM CDTFINAL REPORT PROCEDURE: MYOCARDIAL PERFUSION PET IMAGING (Rest/Stress)CPT CODE: 36269 INDICATION: Evaluation for liver transplant CARDIOVASCULAR PROFILE:Symptoms: [...] Melo Verified Date/Time: 01/18/2020 12:45:40 Reading Location: [address] [facility] HEPATIC FUNCTION [id number] 10:29:00 Test Item Value Reference Range Interpretation [...] (test code = 9 U/L 6-55 347) Civil Drafting Technician ID - CHARO FSpecimen moderately ictericCBC W/PLT COUNT & AUTO [id number] 08:43:00 Test Item Value Reference Range Interpretation [...] CONCENTRATION Decreased (CELLAVISION)(BEAKER) (test code = 3438) Civil Drafting Technician ID - [id number] ID - Lizett OverholtUser comments: Slide comments: [id number] 07:29:00 Test Item Value Reference Range Interpretation Comments MAGNESIUM (BEAKER) (test code = 2.1 mg/dL 1.6-2.6 627) Civil Drafting Technician ID - CHARO FBASIC METABOLIC [id number] 07:29:00 Test Item Value Reference Range Interpretation [...] S NOT APPLICABLE FOR DIALYSIS PATIEN TS. Civil Drafting Technician ID - CHARO FSpecimen moderately ictericAnti-Nuclear Antibody (REILLY) 2020-01-17 10:54:00 Test Item Value Reference Range Interpretation Comments REILLY (test code = 51405-8) Negative Negative VALENTE (test code = VALENTE) Test performed by IFA method.Test performed by IFA method. Lab Interpretation (test Normal code = 21078-6) [facility] HospitalANTI-NUCLEAR ANTIBODY (REILLY)2020-01-17 10:54:00 Test Item Value Reference Range Interpretation Comments ANTI-NUCLEAR ANTIBODY (REILLY) (BEAKER) Negative Negative (test code = 418) Test performed by IFA method.Test performed by IFA method.[id number] 10:49:00 Test Item Value Reference Range Interpretation Comments RPR (test code = 74162-8) Nonreactive Nonreactive Lab Interpretation (test code = Normal 31416-4) [facility] HospitalRPR2020-06-22 10:49:00 Test Item Value Reference Range Interpretation Comments RPR SCREEN (BEAKER) (test code = Nonreactive Nonreactive 420) CBC W/PLT COUNT & AUTO [id number] 10:00:00 Test Item Value Reference Range Interpretation [...] CONCENTRATION Decreased (CELLAVISION)(BEAKER) (test code = 3438) Civil Drafting Technician ID - [id number] ID - Alem Mars comments: Slide comments:BASIC METABOLIC [id number] 05:16:00 Test Item Value Reference Range Interpretation [...] S NOT APPLICABLE FOR DIALYSIS PATIEN TS. Civil Drafting Technician ID - MITCH LSpecimen moderately oywvubkDVXUYMUIA6181-00-29 05:15:00 Test Item Value Reference Range Interpretation Comments MAGNESIUM (BEAKER) (test code = 2.1 mg/dL 1.6-2.6 627) Civil Drafting Technician ID - MITCH LPROTHROMBIN TIME/[id number] 04:50:00 Test Item Value Reference Range Interpretation [...] patients wiht mechanical heart valves.Vitamin B12 and [id number] 16:46:00 Test Item Value Reference Range Interpretation Comments Vitamin B12 (test code = 1107 pg/mL 213-816 H 2132-9) Folate (test code = 2284-8) 3.40 ng/mL >=7.00 L VALENTE (test code = VALENTE) Civil Drafting Technician ID - NTP Lab Interpretation (test Abnormal code = 44532-8) [facility] HospitalVITAMIN B12 AND [id number] 16:46:00 Test Item Value Reference Range Interpretation Comments VITAMIN B12 (BEAKER) (test code = 1107 pg/mL 213-816 H 774) FOLATE (BEAKER) (test code = 362) 3.40 ng/mL >=7.00 L Civil Drafting Technician ID - NTPLactate dehydrogenase (LDH)2020-01-16 12:57:00 Test Item Value Reference Range Interpretation Comments LDH (test code = 2532-0) 250 U/L 125-220 H VALENTE (test code = VALENTE) Civil Drafting Technician ID - TUAN C Lab Interpretation (test Abnormal code = 43127-7) [facility] HospitalLACTATE DEHYDROGENASE (LDH)2020-01-16 12:57:00 Test Item Value Reference Range Interpretation Comments LACTATE DEHYDROGENASE (BEAKER) (test 250 U/L 125-220 H code = 635) Civil Drafting Technician ID - TUAN CRETICULOCYTE [id number] 12:44:00 Test Item Value Reference Range Interpretation Comments RETICULOCYTE COUNT PCT (BEAKER) (test 5.0 % 0.5-1.7 H code = 575) Civil Drafting Technician [facility] - [facility] Antigen with HIV-1/2 [id number] 12:17:00 Test Item Value Reference Range Interpretation Comments HIV-1 Antigen with HIV Nonreactive Nonreactive 1&2 Antibody (test code = 54892-9) VALENTE (test code = VALENTE) Civil Drafting Technician ID - TUAN C Lab Interpretation (test Normal code = 72728-1) [facility] HospitalHIV-1 ANTIGEN WITH HIV-1/2 [id number] 12:17:00 Test Item Value Reference Range Interpretation Comments HIV-1 ANTIGEN WITH HIV 1\\T\\2 Nonreactive Nonreactive ANTIBODY (2) (BEAKER) (test code = 2586) Civil Drafting Technician ID - TUAN TNbswlibpput0016-08-17 12:02:00 Test Item Value Reference Range Interpretation Comments Haptoglobin (test code = <8 14-258 L 4542-7) VALENTE (test code = VALENTE) Civil Drafting Technician ID - TUAN C Lab Interpretation (test Abnormal code = 76167-5) [facility] HospitalHAPTOGLOBIN2020-06-21 12:02:00 Test Item Value Reference Range Interpretation Comments HAPTOGLOBIN (BEAKER) (test code = < mg/dL 14-258 L 366) Civil Drafting Technician ID - TUAN CHemoglobin [id number] 09:01:00 Test Item Value Reference Range Interpretation Comments Hemoglobin A1C (test code = 4548-4) <3.8 4.3-6.1 L Lab Interpretation (test code = Abnormal 87049-6) [facility] HospitalHEMOGLOBIN [id number] 09:01:00 Test Item Value Reference Range Interpretation Comments HEMOGLOBIN A1C (BEAKER) (test code = < % 4.3-6.1 L 368) U/S, ABDOMINAL, WITH [id number] 07:32:00Referring: Dr. Rowdy Mccarthy Reason for exam:->liver [...] in the main portal vein. Signed: Albaro Alvaradoeport Verified Date/Time: 01/16/2020 07:32:01 Reading Location: [facility] C013 Transitional Reading Room US abdominal with [id number] 07:32:00Interface, External Ris In - 01/16/2020 7:34 [...] MDReport Verified Date/Time: 01/16/2020 07:32:01 Reading Location: [facility] B1 C013T Transitional Reading [facility] [id number] 04:41:00 Test Item Value Reference Range Interpretation [...] S NOT APPLICABLE FOR DIALYSIS PATIEN TS. Civil Drafting Technician MABLE RUTHERFORDpecimen moderately anxolqnXRAKUNOIW9404-52-38 04:38:00 Test Item Value Reference Range Interpretation Comments MAGNESIUM (BEAKER) (test code = 2.3 mg/dL 1.6-2.6 627) Civil Drafting Technician MABLE MEYER LHEPATIC FUNCTION [id number] 04:38:00 Test Item Value Reference Range Interpretation [...] (test code = 9 U/L 6-55 347) Civil Drafting Technician MABLE Goetzimeyahaira moderately ictericPROTHROMBIN TIME/[id number] 04:36:00 Test Item Value Reference Range Interpretation [...] mechanical heart valves.CBC W/PLT COUNT & AUTO [id number] 04:29:00 Test Item Value Reference Range Interpretation [...] (BEAKER) (test code = 2801) Carotid doppler apodhldbz2457-11-89 00:34:03Ejection [facility] ECHO HEARTLAB MKCKESSON [...] AM CDTPV LAB - [facility] Name CICI CALDERON Date of Study 01/15/2020 ALYSE Age 64 Visit Number [id number] Gender Female Accession Number [id number] Date of 1955 [facility] Room Number 1515 Physician Physiotherapy Aide Herbert Lechuga Interpreting Chelsea Resendez T Physician [...] + + + - Additional Measurements:ICAPSV/CCAPSV 0.96.ICAEDV/CCAEDV 1.52.[facility] HospitalBlood typing, automated - - at seperate draw time from initial type and hufduw5036-11-43 20:34:00 Test Item Value Reference Range Interpretation Comments ABO/RH AUTOMATED (BEAKER) (test A POSITIVE code = 2260) [facility] HospitalT42020-06-20 18:08:00 Test Item Value Reference Range Interpretation Comments T4, Total (test code = 4.3 ug/dL 4.9-11.7 L 3026-2) VALENTE (test code = VALENTE) Civil Drafting Technician ID - NTP Lab Interpretation (test Abnormal code = 41785-0) [facility] HospitalT42020-06-20 18:08:00 Test Item Value Reference Range Interpretation Comments T4 TOTAL (BEAKER) (test code = 895) 4.3 ug/dL 4.9-11.7 L Civil Drafting Technician ID - QSKWtwgzvxe8510-46-78 18:07:00 Test Item Value Reference Range Interpretation Comments Ferritin (test code = 489.86 ng/mL 5-275 H 2276-4) VALENTE (test code = VALENTE) Civil Drafting Technician ID - NTP Lab Interpretation (test Abnormal code = 76798-5) [facility] HospitalFERRITIN2020-06-20 18:07:00 Test Item Value Reference Range Interpretation Comments FERRITIN (BEAKER) (test code = 489.86 ng/mL 5.00-275.00 H 361) Civil Drafting Technician ID - NTPCT, CHEST, WITHOUT [id number] 17:57:00Referring: Dr. Rowdy LopestFINAL REPORT CT of [...] of ascites. Small hiatal hernia. Signed: Roger Hamptonort Verified Date/Time: 01/15/2020 17:57:54 Reading Location: [facility] C013X Ortho Consult Reading Room CT chest without IV teeftiuf4032-17-40 17:57:00Interface, External Ris In - 01/15/2020 6:00 [...] Hampton Verified Date/Time: 01/15/2020 17:57:54 Reading Location: [address] Ortho Consult Reading Room [facility] 2020-01-15 17:27:00 Test Item Value Reference Range Interpretation Comments TSH (test code = 86915-5) 5.549 0.350- 4.940 uIU/mL H VALENTE (test code = VALENTE) Civil Drafting Technician ID - DB Lab Interpretation (test Abnormal code = 02743-2) [facility] HospitalVitamin D, 20-[id number] 17:27:00 Test Item Value Reference Range Interpretation Comments Vitamin D 25-Hydroxy 6.2 ng/mL 6.6-49.9 L (test code = 2764) VALENTE (test code = VALENTE) Effective 05/07/2017: Reference Range ChangeNew: 6.6-49.9 ng/mL Previous: 13.0-47.8 ng/mL Recommended Vitamin D Target Range: 30.0-40.0 ng/mLOperator ID - DB Lab Interpretation (test Abnormal code = 01696-5) [facility] HospitalVITAMIN D, 23-[id number] 17:27:00 Test Item Value Reference Range Interpretation Comments VITAMIN D 25-OH (BEAKER) (test code 6.2 ng/mL 6.6-49.9 L = 2764) Effective 05/07/2017: Reference Range ChangeNew: 6.6-49.9 ng/mL Previous: 13.0-47.8 ng/mLRecommended Vitamin D Target Range: 30.0-40.0 ng/mLOperator ID - [id number] 17:27:00 Test Item Value Reference Range Interpretation Comments THYROID STIMULATING HORMONE 5.549 uIU/mL 0.350-4.940 H (BEAKER) (test code = 772) Civil Drafting Technician ID - DBALPHA FETOPROTEIN (AFP), TUMOR [id number] 17:27:00 Test Item Value Reference Range Interpretation Comments ALPHA-FETOPROTEIN (BEAKER) (test code < ng/mL <10.0 = 1094) Civil Drafting Technician ID - DBHepatitis B surface vrtswwy8007-62-44 17:25:00 Test Item Value Reference Range Interpretation Comments HBsAg Screen (test code Nonreactive Nonreactive = 5195-3) VALENTE (test code = VALENTE) Specimen is considered negative for HBsAg. Lab Interpretation (test Normal code = 26346-2) [facility] HospitalHesaint claire medical centertis B surface [id number] 17:25:00 Test Item Value Reference Range Interpretation Comments Hep B S Ab (test code = 25.0 <8.0 mIU/mL H 52877-3) VALENTE (test code = VALENTE) Civil Drafting Technician ID - DB Lab Interpretation (test Abnormal code = 74975-9) [facility] C rrguvpzd6886-26-55 17:25:00 Test Item Value Reference Range Interpretation Comments Hepatitis C Ab (test code = Nonreactive Nonreactive 91142-2) VALENTE (test code = VALENTE) Civil Drafting Technician ID - DB Lab Interpretation (test Normal code = 68231-3) [facility] B SURFACE [id number] 17:25:00 Test Item Value Reference Range Interpretation Comments HEPATITIS B SURFACE ANTIGEN (2) Nonreactive Nonreactive (BEAKER) (test code = 2585) Specimen is considered negative for HBsAg.HEPATITIS B SURFACE [id number] 17:25:00 Test Item Value Reference Range Interpretation Comments HEPATITIS B SURFACE ANTIBODY 25.0 mIU/mL <8.0 H (BEAKER) (test code = 647) Civil Drafting Technician ID - DBHEPATITIS C [id number] 17:25:00 Test Item Value Reference Range Interpretation Comments HEPATITIS C ANTIBODY (BEAKER) Nonreactive Nonreactive (test code = 367) Civil Drafting Technician ID - DBCarcinoembryonic Antigen (CEA)2020-01-15 17:23:00 Test Item Value Reference Range Interpretation Comments CEA, SERUM (test code = 7.9 ng/mL 0-5 H 2039-6) VALENTE (test code = VALENTE) Civil Drafting Technician ID - DB Lab Interpretation (test Abnormal code = 69792-9) [facility] B core antibody, [id number] 17:23:00 Test Item Value Reference Range Interpretation Comments Hep B C IgM (test code = Nonreactive Nonreactive 01634-0) VALENTE (test code = VALENTE) Civil Drafting Technician ID - DB Lab Interpretation (test Normal code = 95039-2) [facility] HospitalHepatitis A antibody, [id number] 17:23:00 Test Item Value Reference Range Interpretation Comments Hep A IgM (test code = Nonreactive Nonreactive 28887-6) VALENTE (test code = VALENTE) Civil Drafting Technician ID - DB Lab Interpretation (test Normal code = 09270-4) [facility] HospitalCARCINOEMBRYONIC ANTIGEN (CEA)2020-01-15 17:23:00 Test Item Value Reference Range Interpretation Comments CARCINOEMBRYONIC ANTIGEN (BEAKER) 7.9 ng/mL 0.0-5.0 H (test code = 685) Civil Drafting Technician ID - DBHEPATITIS B CORE ANTIBODY, [id number] 17:23:00 Test Item Value Reference Range Interpretation Comments HEPATITIS B CORE IGM ANTIBODY Nonreactive Nonreactive (BEAKER) (test code = 645) Civil Drafting Technician ID - DBHEPATITIS A ANTIBODY, [id number] 17:23:00 Test Item Value Reference Range Interpretation Comments HEPATITIS A IGM ANTIBODY (BEAKER) Nonreactive Nonreactive (test code = 498) Civil Drafting Technician ID - DBRAD, MANDIBLE, MIN 4 [id number] 17:22:00Referring: Dr. Rowdy Zhang for exam:->liver transplant [...] visualized in the mandible. Signed: Albaro Alvarado MDReport Verified Date/Time: 01/15/2020 17:22:12 Reading Location: [address] Reading Room XR mandible min 4 [id number] 17:22:00Interface, External Ris In - 01/15/2020 5:24 [...] Alvarado Verified Date/Time: 01/15/2020 17:22:12 Reading Location: [address] Transitional Reading [facility], 2 [id number] 17:16:00Referring: Dr. Rowdy Zhang for exam:->liver transplant [...] Alvarado Verified Date/Time: 01/15/2020 17:16:49 Reading Location: [facility] C0[facility] Trans[facility] Reading Room XR chest 2 [id number] 17:16:00Interface, External Ris In - 01/15/2020 5:19 [...] chronic interstitial lung disease. Signed: Albaro Alvarado MDReport Verified Date/Time: 01/15/2020 17:16:49 Reading Location: [address] Transitional Reading [facility] 2D Echo W/Doppler(CW/PW/Color)2020-01-15 17:15:41Ejection FractionSLEH ECHO HEARTLAB MKCKESSON CPACSInterface, External Ris In - 01/15/2020 5:15 PM C DTTransthoracic Echocardiography Report (TTE) Demographics Patient Name CICI CALDERON Date of Study 01/15/2020 ALYSE Gender Female Visit Number [id number] Race Unknown Room Number 1515 Number Date of 1955 Referring Physician Ren Hernandez MD Age 64 year(s) Physiotherapy Aide Lisa Bautista [facility] Interpreting Jai Arreguin MD Physician [...] CO: 7.05 l/min LVOT CI: 3.67 l/min/m^2[facility] CenterCOMPREHENSIVE METABOLIC [id number] 17:06:00 Test Item Value Reference Range Interpretation [...] S NOT APPLICABLE FOR DIALYSIS PATIEN TS. Civil Drafting Technician ID - NTPSpecimen moderately inykfqtCrqgymmtqu9605-65-04 17:03:00 Test Item Value Reference Range Interpretation Comments Fibrinogen (test code = 3255-7) 114 mg/dl 225-434 L Lab Interpretation (test code = Abnormal 16453-2) [facility] HospitalFIBRINOGEN2020-06-20 17:03:00 Test Item Value Reference Range Interpretation Comments FIBRINOGEN LEVEL (BEAKER) (test 114 mg/dl 225-434 L code = 658) Dwfacgpneuu0472-62-14 17:00:00 Test Item Value Reference Range Interpretation Comments Transferrin (test code = 102 mg/dL 174-382 L 3034-6) VALENTE (test code = VALENTE) Civil Drafting Technician ID - DBSpecimen moderately icteric Lab Interpretation (test Abnormal code = 38084-6) [facility] HospitalIron, TIBC, % sat. (without ferritin)2020-01-15 17:00:00 Test Item Value Reference Range Interpretation Comments Iron (test code = 2498-4) 144.0 ug/dL 40-160 TIBC (test code = 2500-7) 129 ug/dL 250-450 L Iron % Saturation (test code 112 % 20-55 H = 2502-3) VALENTE (test code = VALENTE) Civil Drafting Technician ID - DB Lab Interpretation (test Abnormal code = 58510-5) [facility] HospitalTRANSFERRIN2020-06-20 17:00:00 Test Item Value Reference Range Interpretation Comments TRANSFERRIN (BEAKER) (test code = 102 mg/dL 174-382 L 541) Civil Drafting Technician ID - DBSpecimen moderately ictericIRON, TIBC, % SAT. (WITHOUT FERRITIN) 2020-01-15 17:00:00 Test Item Value Reference Range Interpretation Comments IRON (BEAKER) (test code = 547) 144.0 ug/dL 40.0-160.0 TOTAL IRON BINDING CAPACITY 129 ug/dL 250-450 L (BEAKER) (test code = 769) IRON % SATURATION (2) (BEAKER) 112 % 20-55 H (test code = 2590) Civil Drafting Technician ID - MPGrily-8-bgvsfxojenl0282-06-20 16:59:00 Test Item Value Reference Range Interpretation Comments A-1 Antitrypsin (test code = 121.20 mg/dL 90-200 1825-9) VALENTE (test code = VALENTE) Civil Drafting Technician ID - DB Lab Interpretation (test Normal code = 80007-8) [facility] HospitalBILIRUBIN, [id number] 16:59:00 Test Item Value Reference Range Interpretation Comments BILIRUBIN DIRECT 1.6 mg/dL 0.1-0.5 H Specimen sl ightly (AKER) (test code = hemoly zed 706) Civil Drafting Technician ID - IEAZUXCB-9-AJUKAJTVTXP3523-06-20 16:59:00 Test Item Value Reference Range Interpretation Comments ALPHA-1 ANTITRYPSIN (BEAKER) 121.20 mg/dL 90.00-200.00 (test code = 502) Civil Drafting Technician ID - SEWdpgtea8415-24-02 16:58:00 Test Item Value Reference Range Interpretation Comments Ethanol Lvl (test code = <10 <=10 mg/dL 5643-2) VALENTE (test code = VALENTE) Civil Drafting Technician ID - DB Lab Interpretation (test Normal code = 88668-6) [facility] HospitalaPTT2020-06-20 16:58:00 Test Item Value Reference Range Interpretation Comments PTT (test code = 80553-3) 36.8 22.5- 36.0 seconds H Lab Interpretation (test code = Abnormal 85249-6) [facility] HospitalAPTT2020-06-20 16:58:00 Test Item Value Reference Range Interpretation Comments PARTIAL THROMBOPLASTIN TIME 36.8 seconds 22.5-36.0 H (BEAKER) (test code = 760) [id number] 16:58:00 Test Item Value Reference Range Interpretation Comments ETHANOL (BEAKER) (test code = 400) < mg/dL <=10 Civil Drafting Technician ID - DBPROTHROMBIN TIME/[id number] 16:57:00 Test Item Value Reference Range Interpretation [...] is2.5-3.5 for patients wiht mechanical heart valves.CALCIUM, [id number] 16:45:00 Test Item Value Reference Range Interpretation Comments CALCIUM IONIZED (BEAKER) (test 1.08 mmol/L 1.12-1.27 L code = 698) PH, BLOOD (BEAKER) (test code = 7.38 1810) CREATININE, RANDOM [id number] 13:46:00 Test Item Value Reference Range Interpretation Comments CREATININE URINE (BEAKER) (test 280.7 mg/dL code = 375) Reference Range: No NormalsOperator ID - NTPSODIUM, RANDOM [id number] 13:46:00 Test Item Value Reference Range Interpretation Comments SODIUM URINE (BEAKER) (test code = < meq/L 243) Reference Range: No NormalsOperator ID - NTPHepatitis panel, [id number] 13:05:00 Test Item Value Reference Range Interpretation Comments Hep A IgM (test code = Nonreactive Nonreactive 90998-7) Hep B C IgM (test code = Nonreactive Nonreactive 22893-0) Hepatitis C Ab (test code = Nonreactive Nonreactive 02851-5) HBsAg Screen (test code = Nonreactive Nonreactive 5195-3) VALENTE (test code = VALENTE) Civil Drafting Technician ID - NTP Lab Interpretation (test Normal code = 90394-5) [facility] HospitalHEPATITIS PANEL, [id number] 13:05:00 Test Item Value Reference Range Interpretation Comments HEPATITIS A IGM ANTIBODY (BEAKER) Nonreactive Nonreactive (test code = 498) HEPATITIS B CORE IGM ANTIBODY Nonreactive Nonreactive (BEAKER) (test code = 645) HEPATITIS C ANTIBODY (BEAKER) Nonreactive Nonreactive (test code = 367) HEPATITIS B SURFACE ANTIGEN (2) Nonreactive Nonreactive (BEAKER) (test code = 2585) Civil Drafting Technician ID - NTPLipid [id number] 11:51:00 Test Item Value Reference Range Interpretation Comments Triglycerides (test 86 mg/dL code = 2571-8) Cholesterol (test code 101 mg/dL = 2093-3) HDL (test code = 12 mg/dL 2085-9) LDL Calculated (test 72 mg/dL code = 18982-6) VALENTE (test code = VALENTE) Triglyceride Reference Range: Low Risk <150 Borderline 150-199 High Risk 200-499 Very High Risk >=500 Cholesterol Reference Range: Low Risk <200 Borderline 200-239 High Risk >240 HDL Cholesterol Reference Range: Low Risk >=60 High Risk <40 LDL Cholesterol Reference Range: Optimal <100 Near Optimal 100-129 Borderline 130-159 High 160-189 Very High >=190 Civil Drafting Technician ID - NTPSpecimen moderately icteric [facility]GGT)2020-01-15 11:51:00 Test Item Value Reference Range Interpretation Comments GGT (test code = 2324-2) 15 U/L 9-64 VALENTE (test code = VALENTE) Civil Drafting Technician ID - NTPSpecimen moderately icteric Lab Interpretation (test Normal code = 60273-2) [facility] [id number] 11:51:00 Test Item Value Reference Range Interpretation Comments Uric Acid (test code = 15.7 mg/dL 2.6-7.2 H 3084-1) VALENTE (test code = VALENTE) Civil Drafting Technician ID - NTPSpecimen moderately icteric Lab Interpretation (test Abnormal code = 75124-7) [facility] [id number] 11:51:00 Test Item Value Reference Range Interpretation Comments URIC ACID (BEAKER) (test code = 15.7 mg/dL 2.6-7.2 H 773) Civil Drafting Technician ID - NTPSpecimen moderately ictericLIPID [id number] 11:51:00 Test Item Value Reference Range Interpretation [...] Borderline 130-159 High 160-189 Very High >=190 Civil Drafting Technician ID - NTPSpecimen moderately [id number] 11:51:00 Test Item Value Reference Range Interpretation Comments PHOSPHORUS (BEAKER) (test code = 4.5 mg/dL 2.3-4.7 604) Civil Drafting Technician ID - NTPGAMMA GLUTAMYL TRANSFERASE (GGT)2020-01-15 11:51:00 Test Item Value Reference Range Interpretation Comments GAMMA GLUTAMYL TRANSFERASE (BEAKER) 15 U/L 9-64 (test code = 364) Civil Drafting Technician ID - NTPSpecimen moderately ictericCBC W/PLT COUNT & AUTO [id number] 11:25:00 Test Item Value Reference Range Interpretation [...] CONCENTRATION Decreased (CELLAVISION)(BEAKER) (test code = 3438) Civil Drafting Technician ID - [id number] ID - Ana Laura James comments: Slide comments: [id number] 10:20:00 Test Item Value Reference Range Interpretation Comments MAGNESIUM (BEAKER) (test code = 2.2 mg/dL 1.6-2.6 627) Civil Drafting Technician ID - [id number] 08:57:00 Test Item Value Reference Range Interpretation Comments Ammonia (test code = 19 18- 72 mol/L 77503-0) VALENTE (test code = VALENTE) Civil Drafting Technician ID - NTP Lab Interpretation (test Normal code = 19652-4) [facility]2020-[facility] 08:57:00 Test Item Value Reference Range Interpretation Comments AMMONIA (BEAKER) (test code = 348) 19 mol/L 18-72 Civil Drafting Technician ID - NTPHEPATIC FUNCTION [id number] 05:21:00 Test Item Value Reference Range Interpretation [...] (test code = 12 U/L 6-55 347) Civil Drafting Technician ID - DALTON Kelsiecimen moderately ictericBASIC METABOLIC [id number] 05:15:00 Test Item Value Reference Range Interpretation [...] S NOT APPLICABLE FOR DIALYSIS PATIEN TS. Civil Drafting Technician ID - DALTON Dolanecimen moderately ictericPROTHROMBIN TIME/[id number] 04:37:00 Test Item Value Reference Range Interpretation [...] Detected Not Detected, (test code = Negative 68630-0) SARS-COV-2 [facility] PERFORMING LAB (test code = 17172-1) VALENTE (test code = Negative results do [...] of the Act. Fact Sheet for Healthcare Providers:https://www.Reebeeid.[employer]/Documents/Xper t%20Xpress%20SARS%20CoV- 2/Fact%20Sheets/302-1522 %12VHZQ-NTM-5%20HEALTHCA RE%20PROVIDERS%20FACT%20 SHEET.pdf Fact Sheet for Healthcare Patients:https://www.Blowtorchid.[employer]/Documents/Xpert %20Xpress%20SARS%20CoV-2 /Fact%20Sheets/302-3801% 91YVWQ-KPD-4%20PATIENT%2 0FACT%20SHEET.pdf Performing Laboratory:[facility] [place] [address] [facility] ([facility])2020-01-15 01:48:00 Test Item Value Reference Range Interpretation Comments SARS-COV2/RT-PCR (test Not Detected Not Detected, Negative code = 5688509) SARS-COV-[address] [facility] (test code = 9954254) Negative results do not preclude SARS-CoV-2 infection [...] of the Act.Fact Sheet for Healthcare Pro viders:https://www.[employer]/Documents/Xpert%20Xpress%20SARS%20CoV-2/Fact%20Sh eets/3023802%18QEGS-RIX-9%20HEALTHCARE%20PROVIDERS%20FACT%20SHEET.pdfFact Sheet for Healthcare Patients:https://www.[facility]/Documents/Xpert%20Xpress%20SARS%20CoV-2/Fact%20Sheets/3023801%20SARS-COV -2%20PATIENT%20FACT%20SHEET.pdfPerforming Laboratory:[facility], [place] [address]DIAJY METABOLIC [id number] 22:40:00 Test Item Value Reference Range Interpretation [...] S NOT APPLICABLE FOR DIALYSIS PATIEN TS. Civil Drafting Technician ID - DBSpecimen moderately ictericHEPATIC FUNCTION [id number] 22:39:00 Test Item Value Reference Range Interpretation [...] Specimen slightly (test code = 347) hemolyzed Civil Drafting Technician ID - DBSpecimen moderately ictericPROTHROMBIN [id number] 22:28:00 Test Item Value Reference Range Interpretation [...] mechanical heart valves.CBC W/PLT COUNT & AUTO [id number] 22:22:00 Test Item Value Reference Range Interpretation [...] code = 2801) ALPHA FETOPROTEIN (AFP), TUMOR [id number] 18:31:00 Test Item Value Reference Range Interpretation Comments ALPHA-FETOPROTEIN (BEAKER) (test code < ng/mL <10.0 = 1094) Civil Drafting Technician ID - DBBASIC METABOLIC [id number] 15:23:00 Test Item Value Reference Range Interpretation [...] S NOT APPLICABLE FOR DIALYSIS PATIEN TS. Civil Drafting Technician ID - BSPlease sent STATSpecimen moderately ictericHEPATIC FUNCTION [id number] 15:18:00 Test Item Value Reference Range Interpretation [...] (test code = 17 U/L 6-55 347) Civil Drafting Technician ID - BSPlease sent STATSpecimen moderately [...] valves.Please sent STATCBC W/PLT COUNT & AUTO [id number] 15:05:00 Test Item Value Reference Range Interpretation [...] (BEAKER) (test code = 2801) CT, ABDOMEN, [id number] 15:58:00Referring: Dr. Reno SweattFINAL REPORT CT OF [...] MDReport Verified Date/Time: 05/02/2017 15:58:35 Reading Location: [facility] C013Y CT Body Reading Room CBC W/PLT COUNT & AUTO [id number] 17:30:00 Test Item Value Reference Range Interpretation [...] code = 417) 0.00ALPHA FETOPROTEIN (AFP), TUMOR [id number] 16:31:00 Test Item Value Reference Range Interpretation Comments ALPHA-FETOPROTEIN (BEAKER) (test 3.3 ng/mL <10.0 code = 1094) Effective 06/14/2014: Reference Range ChangeNew: <10.0 Previous: 0.0-8.0 BASIC METABOLIC [id number] 16:13:00 Test Item Value Reference Range Interpretation [...] FOR DIALYSIS PATIEN TS. Specimen slightly ictericLIPID [id number] 16:13:00 Test Item Value Reference Range Interpretation [...] Very High >=190 Specimen slightly ictericHEPATIC FUNCTION [id number] 16:13:00 Test Item Value Reference Range Interpretation [...] (test code = 364) Specimen slightly ictericPROTHROMBIN [id number] 16:13:00 Test Item Value Reference Range Interpretation [...]
--- OUTSIDE RECORDS SUMMARY | 2020-05-03 18:56 | XMS REPORT ---
[...] End Status Dosage System Date Date Xixa [facility] 86680131188 550 MG Orally Active 1 tabl et Twice a day Folic Acid ND 90718833645 1 MG Orally Active 1 tab let Once a day Spironolactone [facility] 76881484329 25 MG Orally Active 1 tablet Vitamin D2 [facility] 41074542758 10 MCG (400 Active 2 tab lets UNIT) Orally Once a day Albuterol Sulfate [facility] 96048137418 108 (90 Base) October Acti ve 1 puff as HFA MCG/ACT , needed Inhalation 2019 every 6 hrs Calcitriol [facility] 37685979692 0.5 MCG Orally Active 1 capsule Once a day MagOx 400 [facility] 15344696906 400 (241.3 Mg) Active 1 t ablet MG Orally Once with food a day Lactulose [facility] 93044247662 20 GM/30ML Active 15 ml Orally Once a day Tramadol HCl [facility] 25270673854 50 MG Orally Active 1 tablet as Once a day needed Midodrine HCl [facility] 63173503949 2.5 MG Orally Active 1 tablet Three times a day Cimetidine [facility] 60445390632 200 MG Orally Active 1 t ablet as Once a day needed Pantoprazole [facility] [address]-60 40 MG Orally Active 1 packet Sodium Once a day mixed with apple juice or applesauce Results No Known Results Summary Purpose eClinicalWorks Submission
--- OUTSIDE RECORDS SUMMARY | 2020-05-03 18:56 | XMS REPORT ---
[...] Status Dosage System Date Date Gabapentin ND 21342840871 100 MG Orally January Active 1 c apsule Once a day 2019 Lactulose ND 76584953243 20 GM/30ML Active 15 ml Orally Once a day Cimetidine ND 37906299118 200 MG Orally Active 1 t ablet as Once a day needed Albuterol ND 03408355012 108 (90 Base) October Active 1 pu ff as Sulfate HFA MCG/ACT 09, needed Inhalation 2019 every 6 hrs Calcitriol ND 44246733712 0.5 MCG Orally Active 1 capsule Once a day Triamcinolone ND 59227301305 0.1 % January Active 1 appl ication Acetonide Externally , Twice a day 2019 Results No Known Results Immunizations Vaccine Administration Date Hepatitis A (adult) February 21, 2020 Hepatitis B (adult) February 21, 2020 Summary Purpose eClinicalWorks Submission
== END 2020-04-28 11:25 | disposition home or self-care (01) ==
LOC: DS 08:12
PROVIDERS: ATTEND Internal Medicine Gastroenterology
DX: R18.8 Other ascites (principal); K70.0 Alcoholic fatty liver; K74.69 Other cirrhosis of liver; R14.0 Abdominal distension (gaseous)
CPT/HCPCS: 36415; 49083; 87070; 89050; 96365; P9047

== ENCOUNTER 2020-05-10 08:35 | Day surgery (SDC) | payer OTHER ==
--- OUTSIDE RECORDS SUMMARY | 2020-05-10 08:37 | XMS REPORT | Clinical Summary ---
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
--- OUTSIDE RECORDS SUMMARY | 2020-05-10 08:42 | XMS REPORT | Clinical Summary ---
:1955 Author Organization [facility] Address [address] [place] [address] Care Team Providers Name Role Phone Zeinab English JUAN Primary Care Provider Allergies Active Allergy Reactions Severity Noted Date Comments Erythromycin Hives Medium 07/01/2016 Levofloxacin Other (See Comments) High 07/01/2016 Vomitin g and diarrhea Sulfa (Sulfonamide Rash Low 07/01/2016 Antibiotics) Tetracyclines Hives High 07/01/2016 Medications Medication Sig Dispensed Refills Start End Status Date Date rifAXIMin 550 mg Take 1 tablet 60 tablet 3 Active Tab (550 mg total) by 0 mouth 2 (two) times daily. pantoprazole Take 1 tablet (40 30 tablet 3 Active (PROTONIX) 40 MG mg total) by 0 tablet mouth daily. lactulose Take 30 mLs (20 g 2000 mL 3 Ac tive (CHRONULAC) 20 total) by mouth 3 0 gram/30 mL (three) times solution daily. spironolactone Take 25 mg by 0 A ctive (ALDACTONE) 25 MG mouth daily. tablet ergocalciferol Take 1 capsule 4 capsule 2 Active (ERGOCALCIFEROL) (50,000 Units 0 021 1,250 mcg (50,000 total) by mouth unit) once a week. capsuleIndications : Cirrhosis of liver without ascites, unspecified hepatic cirrhosis type (HCC), Vitamin D deficiency magnesium oxide Take 1 tablet 30 tablet 2 Active (MAG-OX) 400 mg (400 mg total) by 0 (241.3 mg mouth daily. magnesium) tabletIndications: Cirrhosis of liver without ascites, unspecified hepatic cirrhosis type (HCC), Magnesium deficiency folic acid Take 1 tablet (1 90 tablet 2 Ac tive (FOLVITE) 1 MG mg total) by 0 021 tabletIndications: mouth daily. Cirrhosis of liver without ascites, unspecified hepatic cirrhosis type (HCC) calcitrioL Take 1 capsule 30 capsule 2 Act rosalba (ROCALTROL) 0.5 (0.5 mcg total) 0 MCG by mouth daily. capsuleIndications : Cirrhosis of liver without ascites, unspecified hepatic cirrhosis type (HCC) ranitidine Take 150 mg by 0 Disc ontinued (ZANTAC) 150 MG mouth as needed 020 ( capsuleIndications (every 8 hours- Discontinued) : Cirrhosis of as antihistamine liver without by PCP). ascites, unspecified hepatic cirrhosis type (HCC), Screening for malignant neoplasm furosemide (LASIX) Take 40 mg by 0 Discontinued 20 MG tablet mouth 2 (two) 020 (St op Taking at times daily . Discha rge) spironolactone Take 25 mg by 0 D iscontinued (ALDACTONE) 25 MG mouth daily. 020 (Stop Taking at tablet Discharge) calcitrioL Take 0.5 mcg by 0 Dis continued (ROCALTROL) 0.5 mouth daily. 020 ( Reorder) MCG capsule calcitrioL Take 1 capsule 30 capsule 0 Dis continued (ROCALTROL) 0.5 (0.5 mcg total) 0 020 (Reorder) MCG capsule by mouth daily. traMADoL (ULTRAM) Take 1 tablet (50 30 tablet 0 01/25 50 mg tablet mg total) by 0 020 mouth every 6 (six) hours as needed for up to 10 days. Max Daily Amount: 200 mg midodrine Take 1 tablet 90 tablet 0 d (PROAMATINE) 2.5 (2.5 mg total) by 0 020 MG tablet mouth 3 (three) times daily for 30 days. magnesium oxide Take 1 tablet 30 tablet 0 Discontinued (MAG-OX) 400 mg (400 mg total) by 0 020 (Reorder) (241.3 mg mouth daily. magnesium) tablet folic acid Take 1 tablet (1 90 tablet 0 Di scontinued (FOLVITE) 1 MG mg total) by 0 020 (R eorder) tablet mouth daily. ergocalciferol Take 1 capsule 4 capsule 0 Discontinued (ERGOCALCIFEROL) (50,000 Units 0 020 (Reorder) 1,250 mcg (50,000 total) by mouth unit) capsule once a week. 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) Active Problems Problem [...] Encounters Date Type Specialty Care Team Description 05/09/2020 Documentation Transplant Hepatology David Mariaelena 05/09/2020 Orders Only Transplant Hepatology David, Pre-tr ansplant evaluation for liver transplant; Tata Ledesma 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, unspecified hepatic cirrhosis type (HCC) 05/05/2020 Documentation Transplant Hepatology Brigitte Hamilton 05/03/2020 Documentation Transplant Hepatology Cary Talley RN 05/02/2020 Documentation Transplant Hepatology Brigitte Hamilton 04/20/2020 Documentation Transplant Hepatology Brigitte Hamilton 04/18/2020 Documentation Transplant Hepatology David Mariaelena 04/18/2020 Documentation Transplant Hepatology Cary Talley RN 04/18/2020 Documentation Transplant Hepatology David, Mary E 04/18/2020 Documentation Transplant Hepatology David, Mariaelena 04/18/2020 Telephone Transplant Hepatology Cary Talley RN 04/17/2020 Orders Only Transplant HepatCary Estrada Pre- transplant evaluation for liver transplant; West, RN 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, unspecified hepatic cirrhosis type (HCC) 04/12/2020 Orders Only Transplant Hepatology Cary Talley [...] alignant neoplasm 04/06/2020 Telephone Hepatology José Sahni MA 03/20/2020 Documentation Transplant Hepatology Hamilton, Micheyl [...] R, RN 02/16/2020 Documentation Transplant Hepatology Hamilton, Kaleida Healthey 02/16/2020 Documentation Transplant Hepatology [place], [facility] 02/16/2020 Documentation Central Scheduling [place], [facility] 02/16/2020 Orders Only Transplant Hepatology Cary Talley [...] Hein, FRANCISCA 02/14/2020 Documentation Transplant Hepatology [place], Jose Migueleyblake 02/11/2020 Telephone Hepatology Dai Rios MA (confirm) [...] Orders Only Hepatology Larry, Line Hepatic Kastrup, SITE TECHNICIAN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) 02/03/2020 Documentation Hepatology Kristofer Cross MD 02/02/2020 Telephone Transplant Hepatology Cary Talley R RN 02/01/2020 UNOS Charge Visit Transplant Hepatology Rito Saini irrhosis of liver Ildefonso Spencer MD without ascites , unspecified hep atic cirrhosis type (HCC) 02/01/2020 Documentation Transplant Hepatology Alfonso Karunablake 02/01/2020 Abstract Transplant Hepatology Cary Talley R, RN 02/01/2020 Telephone Hepatology PRIOR Herber AUTH (XIF AXAN) [place] 02/01/2020 Orders Only Transplant Hepatology Cary Talley Pre- transplant evaluation for liver transplant (Primary Dx); R, RN Cirrhosis of li lsoan without ascites, unspecified hepatic cirrhosis type (HCC) [...] LV) 01/18/2020 Outside Orders Radiology Mitzy English, SITE TECHNICIAN 01/17/2020 Anesthesia Event Gastroenterology Agatha Lr MD Vences, Wendy Diaz, ETIENNE 01/17/2020 Surgery Gastroenterology Sylvie George UPPER MD [...] Screening for m alignant neoplasm; Florian Feng MD Immunity status testing; Ramone, Hepatorenal syn drome [...] Scre ening for malignant neoplasm (Primary Dx); West [...] Line Obesity (BMI 35.0-39.9 without comorbidity); Kastrup, SITE TECHNICIAN Adrenal mass, l eft ; Screening for m alignant neoplasm; Elevated serum creatinine; Other ascites 12/31/2019 Telephone Hepatology Niraj, Dai Goncalves MA 12/21/2019 Documentation Hepatology LarryKadie mcdermott, SITE TECHNICIAN 12/17/2019 Abstract Hepatology Ivanna Healy MA 12/16/2019 Abstract Hepatology Janna Aparicio RN 12/16/2019 Abstract Hepatology Janna Apraicio RN 12/16/2019 Abstract Hepatology Janna Aparicio RN 12/15/2019 Audio - Hepatology Kadie Larry Portal hypert ension (Primary Dx); Telemedicine Yvette, SITE TECHNICIAN 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); Obesity (BMI 35 .0-39.9 without comorbidity); Adrenal mass, l eft ; Screening for m alignant neoplasm 12/14/2019 Telephone Hepatology José Sahni Appointment HAMRIT after 05/10/2019 Family History Medical History Relation Name Comments [...] Not on file Last Filed Vital Signs Vital Sign Reading Time Taken Comments Blood Pressure 104/43 04/11/2020 9:39 AM CDT Pulse 85 04/11/2020 9:39 AM CDT Temperature 36.3 C (97.3 F) 04/11/2020 9:39 AM CDT Respiratory Rate 18 04/11/2020 9:39 AM CDT Oxygen Saturation 95% 04/11/2020 9:39 AM CDT Inhaled Oxygen Concentration 28% 01/23/2020 7:30 PM CDT Weight 85 kg (187 lb 4.8 oz) 04/11/2020 9:39 AM CDT Height 162.6 cm (5' 4") 04/11/2020 9:39 AM CDT Body Mass Index 32.15 04/11/2020 9:39 AM CDT Plan of Treatment Health Maintenance Due Date Last Done Comments BREAST CANCER SCREENING 1955 CERVICAL CANCER SCREENING PAP ONLY (Age 1207/08/1976 21-65) PNEUMOCOCCAL 65+ YRS (1 of - 2019 [id number]) Medicare IPPE (WELCOME TO MEDICARE) 07/28/2019 INFLUENZA VACCINE (#1) 2020 LIPID PANEL 01/14/2023 01/15/2020, 10/23/2016 COLON CANCER SCREENING COLONOSCOPY 01/16/2030 01/17/2020 Procedures Procedure Name Priority Date/Time Associated Comments Diagnosis BILIRUBIN, DIRECT STAT 05/09/2020 12:29 Pre-transplant Resu lts for this PM CDT evaluation for procedure are in liver transplant the results Cirrhosis of liver section. without ascites, unspecified hepatic cirrhosis type (HCC) CBC W/PLT COUNT & STAT 05/09/2020 12:29 Pre-transplant Resu lts for this AUTO DIFFERENTIAL PM CDT evaluation for procedur e are in liver transplant the results Cirrhosis of liver section. without ascites, unspecified hepatic cirrhosis type (HCC) COMPREHENSIVE STAT 05/09/2020 12:29 Pre-transplant Results for this METABOLIC PANEL PM CDT evaluation for procedure are in liver transplant the results Cirrhosis of liver section. without ascites, unspecified hepatic cirrhosis type (HCC) PROTHROMBIN TIME/INR STAT 05/09/2020 12:29 Pre-transplant R esults for this PM CDT evaluation for procedure are in liver transplant the results Cirrhosis of liver section. without ascites, unspecified hepatic cirrhosis type (HCC) PLATELET ESTIMATION Routine 05/02/2020 1:25 Resu lts [...] procedure are i n the results section. [id number] AP Routine 01/19/2020 9:43 PHENOTYP PM CDT TRANSFUSION SERVICE 01/19/2020 6:01 REPORT - SCAN PM CDT R & L CATH / CORONARY 01/19/2020 4:30 Liver transplan t ANGIOS (+/- LV) PM CDT candidate BLOOD GAS, ARTERIAL Routine 01/19/2020 3:44 Resu [...] n the results section. PROTHROMBIN TIME/INR Routine 01/19/2020 11:00 Res ults [...] 452 ms QTC Calculation(Bazett) 458 ms P [place] 59 degrees R [place] 32 degrees T [place] 56 degrees Normal sinus rhythm Normal ECG [...] 8:04 LEUKO-REDUCED AM CDT PLATELETS COLONOSCOPY 01/17/2020 7:55 Anemia, unspecified AM CDT type Special Needs REQ: TF UPPER ENDOSCOPY,BIOPSY 01/17/2020 7:55 AM CDT Anemia, unspecified type Special Needs [...] procedure are i n the results section. [id number]\\, Routine 01/15/2020 4:17 Re sults for this [...] results hepatic cirrhosis section. type (HCC) after 05/10/2019 Results Prothrombin time/INR (05/09/2020 12:29 PM CDT)Only the most recent of23 results within the time period is included. Pathologist Sig nature INR 1.1 [facility] Comment: Reference Range 0.9-1.1 Moderate-intensity Warfarin Therapy 2.0-3.0 Higher-intensity Warfarin Therapy 3.0-4.0 PT 11.8 (H) 9.0 - 11.5 sec [facility] Comment: For additional information, please refer to http://education.FastFig.BreakTheCrates.com/faq/CZJ627 (This link is being provided for informational/ educational purposes only.) Specimen Blood Narrative Performed At FASTING:NO [facility] FASTING: NO Resulting Agency Comment Performing Organization Information: Site ID: [id number] Name: [facility] Address: [address] [place] [phone] Director: Jj Carrasco Performing Organization Address City/State/Zipcode Phone Number [facility] [address] [place] [address] [facility] CBC with platelet count + automated diff (05/09/2020 12:29 PM CDT)Only the most recent of7 resultswithin the time period is included. Pathologist Sig nature WBC 2.8 (L) 3.8 - 10.8 [facility] Thousand/uL RBC 2.40 (L) 3.80 - 5.10 [facility] Million/uL Hemoglobin 8.9 (L) 11.7 - 15.5 g/dL [facility] Hematocrit 25.0 (L) 35.0 - 45.0 % [facility] MCV 104.2 (H) 80.0 - 100.0 fL [facility] MCH 37.1 (H) 27.0 - 33.0 pg [facility] MCHC 35.6 32.0 - 36.0 g/dL [facility] RDW 13.1Comment: 11.0 - 15.0 % [facility] Macrocytosis 1 + Platelets 53 (L) 140 - 400 [facility] Comment: Thousand/uL Review of the peripheral smear reveals decreased numbers of platelets. MPV 11.0 7.5 - 12.5 fL [facility] # Neutros 1,680 1,500 - 7,800 [facility] cells/uL # Lymphs 560 (L) 850 - 3,900 [facility] cells/uL # Monos 347 200 - 950 [facility] cells/uL # Eos 193 15 - 500 [facility] cells/uL # Baso 20 0 - 200 cells/uL [facility] % Neutros 60 % [facility] % Lymphs 20.0 % [facility] % Monos 12.4 % [facility] % Eos 6.9 % [facility] % Baso 0.7 % [facility] Comment(s) [facility] Comment: The smear was manually reviewed and the instrument differential results have been confirmed. The instrument differential has been reported. Specimen Blood Narrative Performed At FASTING:NO [facility] FASTING: NO Resulting Agency Comment Performing Organization Information: Site ID: [facility] Name: [facility] Address: [address] [place] [phone] Director: Jj Carrasco Performing Organization Address [facility] Phone Number [place] [phone] [place] [address] [facility] Bilirubin, direct (05/09/2020 12:29 PM CDT)Only the most recent of10 results within the time period is included. Pathologist Sig nature Bilirubin, Total 4.0 (H) 0.2 - 1.2 mg/dL [facility] Bilirubin, Direct 1.3 (H) < OR = 0.2 mg/dL [facility] Bilirubin, Indirect 2.7 (H) 0.2 - 1.2 mg/dL (calc) [facility] Specimen Blood Narrative Performed At FASTING:NO [facility] FASTING: NO Resulting Agency Comment Performing Organization Information: Site ID: [facility] Name: [facility] Address: [address] [place] [phone] Director: Jj Carrasco Performing Organization Address [facility] Phone Number [facility] [address] [place] [address] [facility] Comprehensive metabolic panel (05/09/2020 12:29 PM CDT)Only the most recent of14 resultswithin the time period is included. Glucose 85 65 - 139 [facility] Comment: mg/dL Non-fasting reference interval BUN 52 (H) 7 - 25 mg/dL [facility] Creatinine 2.62 (H) 0.50 - 0.99 [facility] Comment: mg/dL For patients >49 years of age, the reference limit for Creatinine is approximately 13% higher for people identified as -Iraqi. eGFR If NonAfricn 18 (L) > OR = 60 [facility] Am mL/min/1.73m2 eGFR If Africn Am 21 (L) > OR = 60 [facility] mL/min/1.73m2 BUN/Creatinine 20 6 - 22 (calc) [facility] Ratio Sodium 135 135 - 146 [facility] mmol/L Potassium, Serum 4.5 3.5 - 5.3 [facility] mmol/L Chloride 105 98 - 110 [facility] mmol/L Carbon Dioxide, 23 20 - 32 [facility] Total mmol/L Calcium, Serum 9.9 8.6 - 10.4 [facility] mg/dL Protein, Total, 5.8 (L) 6.1 - 8.1 [facility] Serum g/dL Albumin 3.1 (L) 3.6 - 5.1 [facility] g/dL GLOBULIN (QUEST) 2.7 1.9 - 3.7 [facility] g/dL (calc) Albumin Globulin 1.1 1.0 - 2.5 [facility] Ratio (calc) Bilirubin, Total 4.0 (H) 0.2 - 1.2 [facility] mg/dL Alkaline 81 37 - 153 U/L [facility] Phosphatase, S AST (SGOT) 26 10 - 35 U/L [facility] ALT (SGPT) 11 6 - 29 U/L [facility] Specimen Blood Narrative Performed At FASTING:NO [facility] FASTING: NO Resulting Agency Comment Performing Organization Information: Site ID: [id number] Name: [facility] Address: [address] [place] [phone] Director: Jj Carrasco Performing Organization Address City/State/Zipcode Phone Number [facility] [address] [place] [address] [facility] PLATELET ESTIMATION (05/02/2020 1:25 PM CDT)Only the most recent of3 results within the time period is included. Pathologist Sig nature Platelet Estimate DECREASED (A) ADEQUATE [facility] Specimen Narrative Performed At FASTING:NO [facility] FASTING: NO Resulting Agency Comment Performing Organization Information: Site ID: A Name: [facility] Address: [address] [place] [phone] Director: Jj Carrasco Performing Organization Address City/State/Zipcode Phone Number [facility] [address] [facility] [place] [address] [email or web address] XR dxa bone density study (04/11/2020 11:51 AM CDT) Specimen Narrative Performed At FINAL REPORT [facility] Bone density study, 04/11/2020 Clinical History: Screening [...] osteopenia of the femoral neck. Complete computer analys is will be sent shortly. Diagnostic criteria for osteoporosis BMD: Bone mineral density Normal: BMD measurement less than one st andard deviation from young adult population Osteopenia: BMD measurement between 1 an d 2.5 standard deviations Osteoporosis: BMD measurement greater th an 2.5 standard deviations Severe osteoporosis: Osteoporosis and on e or more fragility fractures Signed: Jorge Brooks MD Report Verified Date/Time: 04/11/2020 13:34:32 Reading Location: [address] Procedure Note Interface, External Ris In - [...] Verified Date/Time: 04/11/2020 1 3:34:32 Reading Location: [address] Performing Organization Address City/State/Zipcode Phone Number GE [facility] CBC with platelet count + automated diff (04/11/2020 11:13 AM CDT)Only the most recent of16 resultswithin the time period is included. Pathologist Sig nature WBC 3.5 3.5 - 10.5 [facility] K/L [facility] RBC 2.51 (L) 3.93 - 5.22 [facility] M/L [facility] Hemoglobin 9.4 (L) 11.2 - 15.7 [facility] GM/DL [facility] Hematocrit 30.2 (L) 34.1 - 44.9 % [facility] MCV 120.3 (H) 79.4 - 94.8 fL [facility] MCH 37.5 (H) 25.6 - 32.2 pg [facility] MCHC 31.1 (L) 32.2 - 35.5 [facility] GM/DL [facility] RDW 14.6 (H) 11.7 - 14.4 % [facility] Platelets 57 (L) 150 - 450 K/CU [facility] MPV 10.4 9.4 - 12.3 fL [facility] nRBC 0 0 - 0 /100 WBC [facility] % Neutros 60 % [facility] % Lymphs 19 % [facility] % Monos 12 % [facility] % Eos 8 % [facility] % Baso 1 % [facility] # Neutros 2.09 1.56 - 6.13 [facility] # Lymphs 0.67 (L) 1.18 - 3.74 [facility] # Monos 0.43 (H) 0.24 - 0.36 [facility] # Eos 0.28 0.04 - 0.36 [facility] # Baso 0.02 0.01 - 0.08 [facility] Immature 0 0 - 1 % [facility] CENTER Specimen Blood Performing Organization Address City/State/Zipcode Phone Number [address] [address] CENTER Alpha fetoprotein (AFP), tumor marker (04/11/2020 11:13 AM CDT)Only the most recent of3 resultswithin the time period is included. Pathologist Sig nature Alpha-Fetoprotein <2.0 <10.0 ng/mL [facility] Specimen Blood Narrative Performed At Shirt Finisher ID - BS [facility] Performing Organization Address City/State/Zipcode Phone Number [address] [address] CENTER Miscellaneous lab test (02/15/2020 12:29 PM CDT)Only the most recent of2 results within the time period is included. Pathologist Sig nature Scan Result [facility] Specimen Blood Narrative Performed At This result has an attachment that is no t available. Performing Organization Address City/State/Zipcode Phone Number [facility] [phone] [facility] o, [place] Magnesium (02/15/2020 12:29 PM CDT)Only the most recent of13 resultswithin the time period is included. Pathologist Sig nature Magnesium 1.8 1.6 - 2.6 mg/dL [facility] Specimen Blood Narrative Performed At Shirt Finisher ID - LM [facility] Performing Organization Address City/State/Zipcode Phone Number [facility] [address] [place] [address] CENTER RHYTHM STRIP - SCAN (01/27/2020 10:00 AM CDT) Narrative Performed At This result has an attachment that is no t available. CARDIAC CATH REPORT - SCAN (01/27/2020 10:00 AM CDT) Narrative Performed At This result has an attachment that is no t available. Transfuse Leuko-Red PLT (01/26/2020 10:41 PM CDT)Only the most recent of2 resultswithin the time period is included.Metanephrines (01/26/2020 2:51 PM CDT)Only the most recent of2 resultswithin the time period is included. Metanephrine 46 < OR = 57 [facility] Comment: pg/mL INCORPORATED This test was developed and its analytical performance characteristics have been determined by [facility]. It has not been cleared or approved by FDA. This assay has been validated pursuant to the CLIA regulations and is used for clini steven purposes. Normetanephrine 213 (H) < OR = 148 [facility] Comment: pg/mL INCORPORATED This test was developed and its analytical performance characteristics have been determined by [facility]. It has not been cleared or approved by FDA. This assay has been validated pursuant to the CLIA regulations and is used for clini steven purposes. Total Metanephrine 259 (H) < OR = 205 [facility] Comment: pg/mL INCORPORATED Elevations > 4-fold upper reference range: strongly [place] ggestive of a pheochromocytoma(1). Elevations >1 - 4-fold upper refe rence range: significant but not diagnostic, may be due to medicati ons or stress. Suggest running 24 hr urine fractionated metanephrines and ser um Chromogranin A for confirmation. Reference: (1) Chica Lorenz et al, Plasma Chromogranin A or Urine Fractionated Metanephrines Follow-Up Testing Improves the Diagnosti c Accuracy of Plasma Fractionated Metanephrines for Pheochromocytoma. The J willis-knight[facility] medical centernal of Clinical Endocrinology and Metabolism 93 (1),91-95, 2007. For additional information, please refer to http://education.Lazy Angel/faq/MetFractFree (This link is being provided for informational/educati onal purposes only.) This test was developed and its analytical performance characteristics have been determined by [facility]. It has not been cleared or approved by FDA. This assay has been validated pursuant to the CLIA regulations and is used for clini steven purposes. Specimen Blood Narrative Performed At Performing Lab [employer] DIAGNOSTIC INCORPORATED [facility][1] [address] [place] [address] Mark Encarnacion MD, PhD, AMINA Performing Organization Address City/[facility]/Zipcode [place] [phone] [place] [address] Calcium, Ionized (01/26/2020 3:50 AM CDT)Only the most recent of7 resultswithin the time period is included. Pathologist Sig nature Calcium, Ion 1.11 (L) 1.12 - 1.27 mmol/L [facility] pH, Blood 7.41 [facility] Specimen Blood Performing Organization Address City/[facility]/Zipcode Phone Number [facility] [address] [place] [address] CENTER Phosphorus (01/26/2020 3:50 AM CDT)Only the most recent of7 resultswithin the time period is included. Pathologist Sig nature Phosphorus 3.2 2.3 - 4.7 mg/dL [facility] Specimen Blood Narrative Performed At Shirt Finisher ID - BS [facility] Performing Organization Address City/[facility]/Zipcode Phone Number [facility] [address] [place] [phone] CENTER Hepatic function panel (01/26/2020 3:50 AM CDT)Only the most recent of13 resultswithin the time period is included. Pathologist Sig nature Protein, Total 5.7 (L) 6.0 - 8.3 gm/dL [facility] Albumin 3.4 (L) 3.5 - 5.0 g/dL [facility] Total Bilirubin 6.9 (H) 0.2 - 1.2 mg/dL [facility] Bilirubin, Direct 2.2 (H) 0.1 - 0.5 mg/dL [facility] Alkaline Phosphatase 58 40 - 150 U/L [facility] AST 36 (H) 5 - 34 U/L [facility] ALT 13 6 - 55 U/L [facility] Specimen Blood Narrative Performed At Shirt Finisher ID - BS [facility] Specimen moderately icteric Performing Organization Address City/[facility]/Zipcode Phone Number [facility] [address] [place] [address] CENTER Manual Differential (01/25/2020 3:47 AM CDT)Only the most recent of7 results within the time period is included. Pathologist Sig nature % Neutros 66 % [facility] % Lymphs 24 % [facility] % Monos 7 % [facility] % Eos 2 % [facility] % Metamyelo 1 (H) 0 - 0 % [facility] # Neutros 0.92 (L) 1.56 - 6.13 K/ul [facility] # Lymphs 0.34 (L) 1.18 - 3.74 K/ul [facility] # Monos 0.10 (L) 0.24 - 0.36 K/uL [facility] # Eos 0.03 (L) 0.04 - 0.36 K/uL [facility] # Metamyelo 0.01 (H) 0.00 - 0.00 K/uL [facility] Total Counted 100 [facility] Smudge Cells Present [facility] Giant Platelet Present [facility] Anisocytosis 2+ moderate [facility] Macrocytes 2+ moderate [facility] Poikilocytes 2+ moderate [facility] Freddie Cells 2+ moderate [facility] Artifact Present [facility] Platelet Conc Decreased [facility] Specimen Blood Narrative Performed At Shirt Finisher ID - [id number] [facility] Shirt Finisher ID - Maria Del Carmen Silvio User comments: Slide comments: Performing Organization Address City/State/Zipcode Phone Number [facility] [address] [place] [address] CENTER Basic Metabolic Panel (01/25/2020 3:47 AM CDT)Only the most recent of10 results within the time period is included. Sodium 140 136 - 145 meq/L [facility] Potassium 3.4 (L) 3.5 - 5.1 meq/L [facility] Chloride 105 98 - 107 meq/L [facility] CO2 25 22 - 29 meq/L [facility] BUN 31 (H) 7 - 21 mg/dL [facility] Creatinine 2.35 (H) 0.57 - 1.25 [facility] mg/dL [facility] Glucose 108 (H) 70 - 105 mg/dL [facility] Calcium 8.7 8.4 - 10.2 [facility] mg/dL [facility] EGFR 21Comment: ESTIMATED mL/min/1.73 sq [facility] GFR IS NOT m [facility] CREATININE CLEARANCE IN PREDICTING GLOMERULAR FILTRATION RATE. ESTIMATED GFR IS NOT APPLICABLE FOR DIALYSIS PATIENTS. Specimen Blood Narrative Performed At Shirt Finisher ID - PIAYA L [facility] Specimen moderately icteric Performing Organization Address City/State/Zipcode Phone Number [facility] [address] [place] [address] CENTER TRANSFUSION SERVICE REPORT - [...] AM CDT) Narrative Performed At Epifanio Giles, [employer], DTP OPERATOR 01/24/20 20 10:52 AM [facility] PFT CHARTING REPORT Infection Control/Hand Hygiene procedure s followed throughout the encounter with patient: Yes Patient Identification Method: Patient n celia verified on armband, and Medical record on armband, Is the order complete?: Yes Account ID#: [id number] Patient Name: Cici Calderon Birthdate: 1955 Age: [...] CDT) Narrative Performed At Epifanio Giles RRT, DTP OPERATOR 01/24/20 10:52 AM [facility] PFT CHARTING REPORT Infection Control/Hand Hygiene procedure s followed throughout the encounter with patient: Yes Patient Identification Method: Patient n celia verified on armband, and Medical record on armband, Is the order complete?: Yes Account ID#: [id number] Patient Name: Cici Calderon Birthdate: 1955 Age: [...] CDT) Narrative Performed At Epifanio Giles RRT, [facility] 01/24/20 10:52 AM [facility] PFT CHARTING REPORT Infection Control/Hand Hygiene procedure s followed throughout the encounter with patient: Yes Patient Identification Method: Patient n celia verified on armband, and Medical record on armband, Is the order complete?: Yes Account ID#: [id number] Patient Name: Cici Calderon Birthdate: 1955 Age: [...] CDT) Narrative Performed At Janina Meehan RRT, [facility] 01/24/20 2:39 PM [facility] PFT CHARTING REPORT Infection Control/Hand Hygiene procedure s followed throughout the encounter with patient: Yes Patient Identification Method: Patient n celia verified on armband, and Medical record on armband, Is the order complete?: Account ID#: [id number] Patient Name: Cici Calderon Birthdate: 1955 Age: [...] Post 0 - - Study Date: 01/24/20 Rahul dy Time: 1020 ASSESSMENT History & Physical Mode of Arrival: Wheel chair Pulse: 59 Resp: 18 SPO2: 92 % on RA [...] results within the time period is included. Pathologist Sig nature CROSSMATCH COMPATIBLE SAFETRACE TX Unit ABO A Pos SAFETRACE TX UNIT NUMBER [id number] SAFET[place]ACE [place] Status TX_TIMEINCHART SAFETRACE [place] Blood Bank Product RED BLOOD CELLS SAFETRACE [place] PRODUCT CODE [id number] [place] Specimen Other Performing Organization Address City/State/Zipcode Phone Number [employer] [place] B-type Natriuretic Factor (BNP) (01/23/2020 4:32 AM CDT)Only the most recent of 2 resultswithin the time period is included. Pathologist Sig nature BNP 2,179 (H) 0 - 100 pg/mL [facility] Specimen Blood Narrative Performed At Shirt Finisher ID - MITCH Linares [facility] Performing Organization Address [facility] Phone Number [address] [address] CENTER Prepare Leuko-Red PLT (01/22/2020 11:54 PM CDT)Only the most recent of2 results within the time period is included. Pathologist Sig nature Unit ABO A Pos SAFETRACE TX UNIT NUMBER [id number] SAFETRACE TX Status WORK IN PROGRESS SAFETRACE TX Blood Bank Product PLATELETS SAFETRACE TX PRODUCT CODE [id number] SAFETRACE TX Unit ABO O Pos SAFETRACE TX UNIT NUMBER [id number] SAFETRACE TX Status TX_TIMEINCHART SAFETRACE TX Blood Bank Product PLATELETS SAFETRACE [place] PRODUCT CODE [id number] [place] Specimen Blood Performing Organization Address [facility] Phone Number SAFETRACE [place] Transfuse Leuko-Red RBC (01/22/2020 2:30 PM CDT)Only the most recent of2 resultswithin the time period is included.Cortisol (01/22/2020 8:23 AM CDT)Only the most recent of2 resultswithin the time period is included. Pathologist Sig nature Cortisol, Total 1.6 (L) 3.7 - 19.4 ug/dL [facility] Specimen Blood Narrative Performed At Shirt Finisher ID - MITCH Linares [facility] Performing Organization Address [facility] Phone Number [address] [address] CENTER ABORH, manual (01/22/2020 4:34 AM CDT) Pathologist Sig nature ABO Grouping A [facility] Rh Factor POS [facility] Specimen Blood Performing Organization Address City/[facility]/Zipcode Phone Number [address] [address] Direct AHG (RAMIREZ)/Direct Jewel (01/22/2020 4:34 AM CDT) Pathologist Sig nature Direct [facility]HG-IGG NEGATIVE [facility] Direct [facility]HG-C3B, C3D NEGATVIE [facility] Specimen Blood Performing Organization Address City/[facility]/Zipcode Phone Number [address] [address] Body fluid culture + gram stain (01/21/2020 4:54 PM CDT) Result No growth [facility] Gram Stain Result <1+ White blood [facility] seen [facility] Gram Stain Result No organisms seen [facility] Specimen Body Fluid - Ascites (disorder) Performing Organization Address [facility]/Zipcode Phone Number [address] [address] CENTER Body fluid cell count with differential (01/21/2020 4:54 PM CDT) Appearance Hazy (A) Clear [facility] Color Cele (A) Colorless, [facility] RBCs 4,000 (H) <=1 /cu mm [facility] Adjusted WBC Count 86 (H) <=5 /cu mm [facility] Lining Cells 1 <=1 /cu mm [facility] % Segs 7 % [facility] % Lymphs 83 % [facility] % Monos 10 % [facility] % Eos 0 % [facility] % Baso 0 % [facility] Container Body Fluid Sterile Vial [facility] Specimen Body Fluid - Ascites (disorder) Performing Organization Address City/State/Zipcode Phone Number [facility] [address] [place] [address] CENTER US paracentesis (01/21/2020 4:40 PM CDT) Specimen Narrative Performed At FINAL REPORT [facility] Ultrasound guided paracentesis Clinical History: Ascites. Sedation: None. Top Carrier: Christine Ward PA-C Supervising Physician: Natan Chisholm MD Artist Manager: None. Estimated Blood Loss: < 1 mL. Specimen: 3700 mL of clear yellow fluid, samples sent to laboratory. Technique: Informed consent was obtain ed. The risks of pain, bleeding, infection, bowel perforation, injury to adjacent structures, and adverse medication react ions were discussed with the patient. After informed consent was o btained, the patient's abdomen was scanned. The right lower quadrant of the abdomen was selected for paracentesis. After the largest fl uid pocket area was marked, and the anterior abdominal wall was eval uated with color Doppler to exclude presence of blood vessels kelli sing the area, the skin was prepped and draped in the usual sterile manner. After local anesthesia was achieved with lidocaine, a 5 Hebrew one-step catheter was advanced into the peritoneal cavity under ultrasound guidance. After completion of drainage, the cathet er was removed. There was no evidence of complication. Impression: Successful ultrasound guided paracentesi s. Signed: Natan Chisholm MD Report Verified Date/Time: 01/24/2020 09:43:05 Reading Location: [facility] B1 [id number] [facility] Reading Room Procedure Note Interface, External Ris In - 01/24/2020 9:45 AM CDT FINAL REPORT Ultrasound guided paracentesis Clinical History: Ascites. Sedation: None. Top Carrier: Christine Ward PA-C Supervising Physician: Natan Chisholm MD Artist Manager: None. Estimated Blood Loss: < 1 mL. [...] anesthesia was achieved with lidocaine, a 5 Hebrew one-step catheter was advanced into the peritoneal cavity under ultrasound guidance. After completion of drainage, the cathet er was removed. There was no evidence of complication. Impression: Successful ultrasound guided paracentesi s. Signed: Natan Chisholm MD Report Verified Date/Time: 01/24/2020 0 9:43:05 Reading Location: [facility] [id number] [facility] Reading Room Performing Organization Address City/[facility] Phone Number [facility] Peripheral Blood Smear - Hold only (01/21/2020 9:31 AM CDT) Pathologist Sig dima Peripheral Smear Save saved [facility] Specimen Blood Performing Organization Address [facility] Phone Number [address] [address] CENTER Reticulocyte count (01/21/2020 9:31 AM CDT)Only the most recent of2 results within the time period is included. Pathologist Sig nature % Retic 5.3 (H) 0.5 - 1.7 % [facility] Specimen Blood Narrative Performed At Shirt Finisher ID - [id number] [facility] Performing Organization Address [facility] Phone Number [address] [address] CENTER XR chest 1 view portable / bedside (01/21/2020 9:10 AM CDT)Only the most recent of2 resultswithin the time period is included. Specimen Narrative Performed At FINAL REPORT [facility] INDICATION: Edema COMPARISON: January 20, 2020 TECHNIQUE: [...] Karen Walker MD Report Verified Date/Time: 01/21/2020 10:03:32 Reading Location: [employer] [facility] Reading Room Procedure Note Interface, External [...] Verified Date/Time: 01/21/2020 1 0:03:32 Reading Location: [employer] [facility] Reading Room Performing Organization Address City/State/[facility] Phone Number [facility] Metanephrines, 24 hour urine (01/20/2020 10:51 PM CDT) TOTAL VOLUME 1000 mL [facility] Metanephrine 205 90 - 315 [facility] Comment: mcg/24 h INCORPORATED This test was developed and its analytical performance characteristics have been determined by [employer] [place]. It has not been cleared or approved by FDA. This assay has been validated pursuant to the CLIA regulations and is used for clini steven purposes. Normetanephrine 619 794 - 360 [facility] Comment: mcg/24 h INCORPORATED This test was developed and its analytical performance characteristics have been determined by [facility]. It has not been cleared or approved by FDA. This assay has been validated pursuant to the CLIA regulations and is used for clini steven purposes. Metaneph, Total, 24H 862 (H) 224 - 832 [facility] Ur Comment: mcg/24 h INCORPORATED A four-fold elevation of urinary normetanephrines is e xtremely likely to be due to a tumor, while a four-fold elevation of urinary metanephrines is highly suggestive, but not diagnostic, of a tumor. Charo surement of plasma metanephrines and chromogranin A is recommended for co nfirmation. This test was developed and its analytical performance characteristics have been determined by [facility]. It has not been cleared or approved by FDA. This assay has been validated pursuant to the CLIA regulations and is used for clini steven purposes. Specimen Urine Narrative Performed At Performing Lab [facility][1] [address] [place] [address] Mark Encarnacion MD, PhD, AMINA Performing Organization Address City/State/Zipcode Phone Number [employer] [place] [address] [address] [facility] Catecholamines, Fractionated, 24hr urine (01/20/2020 10:51 PM CDT) TOTAL VOLUME 1000 mL [facility] Epinephrine,24 Hr Ur <2 (L) 2 - 24 [facility] Comment: mcg/24 h INCORPORATED Result below clinical reportable range for this analyt e, which is 2 mcg/L. Reported result was calculated using 2 mcg/L. This test was developed and its analytical performance characteristics have been determined by [facility]. It has not been cleared or approved by FDA. This assay has been validated pursuant to the CLIA regulations and is used for clini steven purposes. Norepinephrine 9 (L) 15 - 100 [facility] Comment: mcg/24 h INCORPORATED This test was developed and its analytical performance characteristics have been determined by [facility]. It has not been cleared or approved by FDA. This assay has been validated pursuant to the CLIA regulations and is used for clini steven purposes. Calculated Total 9 (L) 26 - 121 [facility] E+Ne Comment: mcg/24 h INCORPORATED This test was developed and its analytical performance characteristics have been determined by [facility]. It has not been cleared or approved by FDA. This assay has been validated pursuant to the CLIA regulations and is used for clini steven purposes. Dopamine,24 Hr Ur <10 (L) 52 - 480 [facility] Comment: mcg/24 h INCORPORATED Result below clinical reportable range for this analyt e, which is 10 mcg/L. Reported result was calculated using 10 mcg/L. This test was developed and its analytical performance characteristics have been determined by [facility]. It has not been cleared or approved by FDA. This assay has been validated pursuant to the CLIA regulations and is used for clini steven purposes. Creatinine,24 Hr 0.88 0.50 - 2.15 [facility] Urin g/24 h INC[facility]PORATED Specimen Urine Narrative Performed At Performing Lab [employer] [facility] [address] [place] [address] Mark Encarnacion MD, PhD, AMINA Performing Organization Address City/[facility]/Zipcode Phone Number [place] [address] Type and screen, automated (01/20/2020 8:39 PM CDT)Only the most recent of2 resultswithin the time period is included. Pathologist Sig nature ABO/RH AUTOMATED A POSITIVE [facility] (BEAKER) [facility] Ab Scrn NEGATIVE [facility] Specimen Blood Performing Organization Address City/[facility]/Zipcode Phone Number [facility] [address] [place] [address] MR abdomen without IV contrast (01/20/2020 5:54 PM CDT) Specimen Narrative Performed At FINAL REPORT [employer] TECHNIQUE: MRI of the abdomen WITHOUT in [...] John Crocker MD Report Verified Date/Time: 01/21/2020 07:51:30 Reading Location: [facility] Reading Room - [place] [address] Procedure Note Interface, External Ris In - [...] Verified Date/Time: 01/21/2020 0 7:51:30 Reading Location: [facility] Reading Room - [place] [address] Performing Organization Address City/State/Zipcode Phone Number [facility] Urinalysis w/Microscopic + Reflex to Culture (01/19/2020 11:19 PM CDT) Color, UA Yellow [facility] Clarity, UA Hazy [facility] Specific [place], 1.017 1.001 - 1.035 [facility] pH, UA 5.5 5.0 - 8.0 [facility] Protein, UA 20 mg/dL (A) Negative [facility] Glucose, UA Negative Negative [facility] Ketones, UA Negative Negative [facility] Bilirubin, UA Negative Negative [facility] Blood, UA Small (A) Negative [facility] Nitrite, UA Negative Negative [facility] Leukocytes, UA Trace (A) Negative [facility] Urobilinogen, UA 0.2 0.2 - 1.0 mg/dL [facility] RBC, UA 1 /HPF [facility] WBC, UA 3 /HPF [facility] Bacteria, UA Rare [facility] Squam Epithel, UA 3 /HPF [facility] Hyaline Casts, UA 3 /LPF [facility] Specimen Source [facility] Specimen Urine Performing Organization Address City/[facility] Phone Number [address] [address] CENTER Sodium, random urine (01/19/2020 11:19 PM CDT)Only the most recent of3 results within the time period is included. Pathologist Sig nature Sodium Urine <20 meq/L [facility]AL [place] Specimen Urine Narrative Performed At Reference Range: No Normals [facility] Shirt Finisher ID - PIAYA L Performing Organization Address [facility] Phone Number [address] [address] CENTER Urinalysis w/Microscopic (01/19/2020 11:19 PM CDT)Only the most recent of2 resultswithin the time period is included. Color, UA Yellow [facility] Clarity, UA Hazy [facility] Specific [place], 1.017 1.001 - 1.035 [facility] pH, UA 5.5 5.0 - 8.0 [facility] Protein, UA 20 mg/dL (A) Negative [facility] Glucose, UA Negative Negative [facility] Ketones, UA Negative Negative [facility] Bilirubin, UA Negative Negative [facility] Blood, UA Small (A) Negative [facility] Nitrite, UA Negative Negative [facility] Leukocytes, UA Trace (A) Negative [facility] Urobilinogen, UA 0.2 0.2 - 1.0 mg/dL [facility] RBC, UA 1 /HPF [facility] WBC, UA 3 /HPF [facility] Bacteria, UA Rare [facility] Squam Epithel, UA 3 /HPF [facility] Hyaline Casts, UA 3 /LPF [facility] Specimen Source [facility] Specimen Urine Narrative Performed At Shirt Finisher ID - [auto] [facility] Shirt Finisher ID - tech Performing Organization Address [facility] Phone Number [address] [address] CENTER Blood Culture - Routine (Right Venipuncture) (01/19/2020 9:45 PM CDT)Only the most recent of4 resultswithin the time period is included. Pathologist Sig nature Result No growth in 5 days [facility] Specimen Blood - Entire right upper arm (body str ucture) Performing Organization Address City/State/Zipcode Phone Number [address] [address] CENTER [id number] PHENOTYP (01/19/2020 9:43 PM CDT) Specimen Blood - Entire right upper arm (body str ucture) Narrative Performed At This result has an attachment that is no t available. Performing Organization Address City/State/Zipcode Phone Number [facility] [address] [facility] [place] Blood gas, arterial (01/19/2020 3:44 PM CDT) Pathologist Sig nature pH, Arterial 7.42 7.35 - 7.45 [facility] pCO2, Arterial 36 35 - 45 mmHg [facility] pO2, Arterial 78 (L) 80 - 90 mmHg [facility] O2 Sat, Arterial 96.2 96.0 - 97.0 % [facility] HCO3, Arterial 23 21 - 29 mmol/L [facility] Base Excess, Arterial -1.9 -2.0 - 3.0 [facility] mmol/L [facility] Patient Temperature 36.1 C [facility] FIO2 28.0 % [facility] Specimen Blood, Arterial Performing Organization Address City/[facility]/Zipcode Phone Number [facility] [address] [place] [address] [place] Cryptococcal antigen (01/19/2020 3:04 PM CDT) Pathologist [facility] Cryptococcal Negative Negative, [facility] Antigen, Serum Interference [facility] Specimen Blood Performing Organization Address City/[facility] Phone Number [facility] [address] [place] [address] [place] Rubeola antibody IgG (01/19/2020 3:04 PM CDT) Pathologist [facility] Rubeola Ab, Igg 235.00 AU/mL [facility] Comment: INCORPORATED REFERENCE RANGE: <13.50 AU/mL AU/mL Interpretation <13.50 Negative 13.50-16.49 Equivocal >16.49 Positive A positive result indicates that the patient has antibody to measles virus. It does not differentiate between an active or past infection. The clinical diagnosis must be interpreted in conjunction with clinical signs and symptoms of the patient. For additional information, please refer to http://education.[email or web address]/faq/[email or web address] (This link is being provided for informational/ educational purposes only.) Specimen Blood Narrative Performed At Performing Lab [facility] *QDID [employer] [facility] [employer] [address] [place] [address] Sudhakar Hargrove MD Performing Organization Address City/[facility]/Zipcode Phone Number [place] [address] [facility] Rubella antibody, IgG (01/19/2020 3:04 PM CDT) Pathologist Sig nature Rubella IgG Quant 127.0 (H) <8.0 IU/mL [facility] Specimen Blood Narrative Performed At Rubella IgG Result Interpretation: [facility] </= 7.0 IU/mL Negative - Presumed non-immune 8.0 - 9.9 IU/mL Equivocal >= 10.0 IU/mL Positive - Presumed immune Performing Organization Address [facility] Facility[facility] Phone Number [address] [address] CENTER Varicella zoster antibody, IgG (01/19/2020 3:04 PM CDT) Pathologist Sig nature Varicella IgG 3.6 [facility] DICAL [place] Specimen Blood Narrative Performed At VARICELLA ZOSTER RESULT INTERPRETATIONS: [facility] <=0.8 Al Nonreactive: Presumed non-immune to VZV 0.9-1.0 Al Equivocal >=1.1 Al Reactive: Presumed immune to VZV Performing Organization Address [facility] Facilitycode Phone Number [address] [address] CENTER Mumps antibody, IgG (01/19/2020 3:04 PM CDT) Mumps Ab Igg >300.00 AU/mL [facility] Comment: INCORPORATED REFERENCE RANGE: <9.00 AU/mL Interpretation <9.00 Negative 9.00-10.99 Equivocal >10.99 Positive A positive result indicates that the patient has antibody to mumps virus. It does not differentiate between an active or past infection. The clinical diagnosis must be interpreted in conjunction with clinical signs and symptoms of the patient. Specimen Blood Narrative Performed At Performing Lab [facility] *QDID [employer] [facility] Infect[employer] [address] [place] [address] Sudhakar Hargrove MD Performing Organization Address City/State/Zipcode Phone Number [place] [address] [facility] US breast bilateral (01/19/2020 9:10 AM [...] Jorge Brooks MD Report Verified Date/Time: 01/19/2020 09:52:28 Reading Location: [address] Mammo Re ading Room Procedure Note Interface, [...] Verified Date/Time: 01/19/2020 0 9:52:28 Reading Location: [address] Mammo Re ading Room Performing Organization Address [facility] Facilitycoia Phone Number RIS Aldosterone (01/19/2020 4:11 AM CDT) Aldosterone 22 ng/dL [facility] Comment: INCORPORATED Adult Reference Ranges for Aldosterone: Upright 8:00-10:00 am < or = 28 ng/dL Upright 4:00-6:00 pm < or = 21 ng/dL Supine 8:00-10:00 am 3-16 ng/dL This test was developed and its analytical performance characteristics have been determined by [employer] [facility]. It has not been cleared or approved by FDA. This assay has been validated pursuant to the CLIA regulations and is used for clini steven purposes. Specimen Blood Narrative Performed At [email or web address] [address] [place] [address] Mark Encarnacion MD, PhD, AMINA Performing Organization Address [facility] Phone [place] [address] INCORPORATED [address] [employer] Renin, plasma (01/19/2020 4:11 AM CDT) PRA,LC/MS/MS 1.51 0.25 - 5.82 [facility] Comment: ng/mL/h INCORPORATED This test was developed and its analytical performance characteristics have been determined by [employer] [facility]. It has not been cleared or approved by FDA. This assay has been validated pursuant to the CLIA regulations and is used for clini steven purposes. Specimen Blood Narrative Performed At Performing Lab [employer] [place] [address] [place] [address] Mark Encarnacion MD, PhD, AMINA Performing Organization Address [facility] [place] [address] [address] abdomen without IV contrast (01/19/2020 12:40 AM CDT) Specimen Narrative Performed At FINAL REPORT GE RIS TECHNIQUE: CT of the abdomen WITHOUT int [...] John Crocker MD Report Verified Date/Time: 01/19/2020 08:09:04 Reading Location: [facility] Reading Room - [place] [address]125 Procedure Note Interface, External Ris In - [...] Verified Date/Time: 01/19/2020 0 8:09:04 [facility] [place] [address] Performing Organization Address City/State/Zipcode Phone Number [facility] US renal complete (01/19/2020 12:20 AM CDT) Specimen Narrative Performed At FINAL REPORT [facility] Ultrasound of the Kidneys Clinical History: Re-examine L Adrenal Mass - unable to safely perform CT or MRI Discussion: Sonographic evaluation of the kidneys wa s performed. There is no prior study for direct comparison. Corre lation is made with CT abdomen 05/02/2017, outside CT abdomen and outside MRI abdomen 05/10/2016. Right kidney: 10.7 x 4.2 x 5.7 cm, wit h cortical thickness of 1.2 cm. Normal cortical echogenicity. No mass. No shadowing calculus. No hydronephrosis. Left kidney: 11.4 x 5 x 5.6 cm, with cor tical thickness of 1.4 cm. Normal cortical echogenicity. No mass. No shadowing calculus. No hydronephrosis. Limited doppler evaluation of bilateral main renal arteries and veins demonstrate patency. Bladder: Not visualized which may be d ue to decompression. Miscellaneous: 3.7 x 3.1 x 2.3 cm hypoec hoic left suprarenal mass without associated hypervascularity. Cir rhotic liver. Large abdominal ascites. Impression: No hydronephrosis. 3.7 x 3.1 x 2.3 cm cystic left suprarena l mass indeterminate on the basis of the current exam. Please brian elate with reports of prior CT and MRI. Signed: Maira Sneed MD Report Verified Date/Time: 01/19/2020 01:26:59 Procedure Note Interface, External Ris In [...] Date/Time: 01/19/2020 0 1:26:59 Performing Organization Address City/[facility]/Zipcode Phone Number [facility] Protein, random urine (01/18/2020 8:49 PM CDT) Pathologist Sig nature Protein, Urine 45 (H) 0 - 14 mg/dL [facility] Specimen Urine - Urine, Sterile Collection Narrative Performed At Shirt Finisher ID - ED[facility] Performing Organization Address City/[facility]/Zipcode Phone Number [facility] [address] [place] [address] CENTER Creatinine, random urine (01/18/2020 8:49 PM CDT)Only the most recent of2 resultswithin the time period is included. Pathologist Sig nature Creatinine, Ur 181.3 mg/dL [facility] Specimen Urine - Urine, Sterile Collection Narrative Performed At Reference Range: No Normals [facility] Shirt Finisher ID - EDWIN B Performing Organization Address City/[facility]/Zipcode Phone Number [facility] [address] [place], [place] [phone] [place] Eosinophil smear (01/18/2020 8:49 PM CDT) Pathologist Sig nature Eosinophil Smear Rare EOS =less No EOS seen [facility] than 5% WBCs [facility] seen are EOS (A) [place] Specimen Urine - Urine, Sterile Collection Performing Organization Address [facility]/Zipcode Phone Number [facility] [address] [place] [address] [place] Myocardial Perfusion Pet/CT (Rest & Stress) (01/18/2020 9:20 AM CDT) Specimen Narrative Performed At FINAL REPORT [facility] PROCEDURE: MYOCARDIAL PERFUSION PET IMAG ING (Rest/Stress) CPT CODE: 73518 INDICATION: Evaluation for liver transpl ant CARDIOVASCULAR [...] Jennifer Melo MD Report Verified Date/Time: 01/18/2020 12:45:40 Reading Location: [address] P327B Nuc Med Reading Room Procedure Note Interface, External Ris In - 01/18/2020 12:47 PM CDT FINAL REPORT PROCEDURE: MYOCARDIAL PERFUSION PET IMAG ING (Rest/Stress) CPT CODE: 04852 INDICATION: Evaluation for liver transpl ant CARDIOVASCULAR [...] Verified Date/Time: 01/18/2020 1 2:45:40 Reading Location: [address] P327B Nuc Med Reading Room Performing Organization Address City/State/Zipcode Phone [...] AM Performing Organization Address City/State/[facility] Phone Number GE MUSE ECG 12 lead (01/18/2020 8:46 AM CDT)Only the most recent of2 resultswithin the time period is included. Specimen Narrative Performed At Ventricular Rate 62 BPM GE MUSE Atrial Rate 62 BPM P-R Interval 138 ms QRS Duration 86 ms Q-T Interval 452 ms QTC Calculation(Bazett) 458 ms P [place] 59 degrees R [place] 32 degrees T [place] 56 degrees Normal sinus rhythm Low voltage QRS Nonspecific ST abnormality 17 JAN 2020 11:05 Nonspecific T wave abnormality Nonspecific T wave abno rmality, improved in QT has shortened Confirmed by MD FARHAT, JESSIE ([id number]) on 01/18/2020 2:19:38 PM Procedure Note Interface, External Ris In - 01/18/2020 2:19 PM CDT Ventricular Rate 62 BPM Atrial Rate 62 BPM P-R Interval 138 ms QRS Duration 86 ms Q-T Interval 452 ms QTC Calculation(Bazett) 458 ms P [place] 59 degrees R [place] 32 degrees T [place] 56 degrees Normal sinus rhythm Low voltage QRS Nonspecific ST abnormality 17 JAN 2020 11:05 Nonspecific T wave abnormality Nonspecif ic T wave abnormality, improved in QT has shortened Confirmed by MD FARHAT, JESSIE ([id number]) on 01/18/2020 2:19:38 PM Performing Organization Address City/State/Zipcode Phone Number GE MUSE T Spot TB (01/18/2020 6:10 AM CDT) Pathologist Sig nature T-Spot TB Negative [facility] Neg Ctrl Spot Count 0 [facility] Panel A Spot 0 [facility] Panel B Spot 0 [facility] Pos Ctrl Spot Ct 0 [facility] Scan Result [facility] Specimen Blood Narrative Performed At This result has an attachment that is no t available. Performing Organization Address City/[facility] Phone Number [facility] [address] [place] [address] [address] REPORT OF PROCEDURE - ENDOSCOPY URL (01/17/2020 9:11 AM CDT) Narrative Performed At This result has an attachment that is no t available. REPORT OF PROCEDURE - ENDOSCOPY URL (01/17/2020 8:39 AM CDT) Narrative Performed At This result has an attachment that is no t available. Tissue Exam (01/17/2020 8:15 AM CDT) Pathologist Sig nature Case Report Surgical Pathology Report Case: [id number] I [facility] Authorizing Provider: Sylvie George MD Collected: 01/17/2020 08:15 AM [facility] Ordering Location: [address] Received: 01/17/2020 01:50 PM MEDICAL [facility]ENTER Service Pathologist: Humaira Mendez MD Specimen: Duodenum, bio psy ADDENDUM THIS ADUODENUMIS ISSUED TO R EPORT THE FINDINGS IN THE DEEPER LEVELS OF THE BIOPSY AND GIVE THE FINAL DIAGNOSIS: [facility] Addendum [facility] electronically signed DUODENUM, ENDOSCOPIC BIOPSY: MEDICAL PARVIN TER by Humaira Mendez - ECTATIC VESSELS IN THE LAMINA PROPRIA, SUGGESTIVE OF PORTAL DUODENOPATHY MD Siva on - NO FEATURES OF CELIAC DISEASE SEEN 01/19/2020 at 4:12 PM - NO GRANULOMAS, DYSPLASIA OR MALIGNANCY SEEN DIAGNOSIS DUODENUM, ENDOSCOPIC BIOPSY: [facility] Electronically signed - SUPERFICIAL FRAGMENTS OF SMALL BOWEL MUCOSA WITH GASTRIC FOVEOLAR METAPLASIA [facility] by Vanessa [facility] MD samir Paniagua 01/18/2020 at 3 :50 PM Signing Pathologist Direct Phone Line: CPT Code(s) 34426 [facility] CLINICAL HISTORY Procedure: upper endoscopy, biopsy and colonosc opy [facility] Pre and postop diagnosis: anemia [facility] SPECIMEN SOURCE A. Duodenum; biopsy [facility] GROSS DESCRIPTION A. The specimen is [facility] received in [facility] with the patient's name, accession number and "duodenum" and consists of one garduno-pink mucosal-covered pieces of tissue measuring 0.3 x 0.2 x 0.1 cm. The specimen is submitted entirely following filtration in a cassette A1. HS/pl MICROSCOPIC PERFORMED [facility] Specimen Tissue - Duodenal structure (body struct ure) Performing Organization Address [facility] Facility[facility] Phone Number [facility] [address] [place] [address] CENTER Lactate dehydrogenase (LDH) (01/16/2020 12:24 PM CDT) Pathologist Sig nature LDH 250 (H) 125 - 220 U/L [facility] Specimen Blood Narrative Performed At Shirt Finisher ID - TUAN Mera [facility] ICA CENTER Performing Organization Address City/[facility]/Zipcode Phone Number [facility] [address] [place] [address] CENTER Vitamin B12 and Folate (01/16/2020 11:25 AM CDT) Pathologist Sig nature Vitamin B12 1,107 (H) 213 - 816 pg/mL [facility] Folate 3.40 (L) >=7.00 ng/mL [facility] Specimen Blood Narrative Performed At Shirt Finisher MABLE SANTANA [facility] Performing Organization Address City/[facility]/Zipcode Phone Number [facility] [address] [place], [place] [phone] CENTER HIV-1 Antigen with HIV-1/2 Antibody (01/16/2020 11:25 AM CDT) Pathologist Sig nature HIV-1 Antigen with Nonreactive Nonreactive [facility] HIV 1&2 Antibody [facility] Specimen Blood Narrative Performed At Shirt Finisher ID - TUAN Mera [facility] Performing Organization Address City/State/Zipcode Phone Number [facility] [address] [place] [address] [place] Haptoglobin (01/16/2020 11:25 AM CDT) Pathologist Sig nature Haptoglobin <8 (L) 14 - 258 mg/dL [facility] Specimen Blood Narrative Performed At Shirt Finisher ID - TUAN Mera [facility] Performing Organization Address City/[facility] Phone Number [facility] [address] [place] [address] [place] US abdominal with doppler (01/16/2020 6:30 AM CDT) Specimen Narrative Performed At FINAL REPORT [facility] ULTRASOUND ABDOMEN COMPLETE, ULTRASOUND DUPLEX DOPPLER HISTORY: [...] history of cirrhosis. No mass lesions are identif ied. Hepatic length is 12 cm. No gallstones [...] Albaro Alvarado MD Report Verified Date/Time: 01/16/2020 07:32:01 Reading Location: [facility] C013T [facility] Reading Room Procedure Note Interface, [...] Verified Date/Time: 01/16/2020 0 7:32:01 Reading [facility] B[facility] C013T [facility] Reading Room Performing Organization Address City/State/Zipcode Phone Number [facility] [employer] Drug screen, urine, transplant (01/15/2020 9:52 PM CDT) Specimen Urine Narrative Performed At This result has an attachment that is no t available. Performing Organization Address City/[facility] Facility[facility] Phone Number [place] [phone] [place] [address] Blood typing, automated - - at seperate draw time from initial type and screen (01/15/2020 6:16 PMCDT) Pathologist Sig nature ABO/RH AUTOMATED A POSITIVE [facility] (BEAKER) [facility] Specimen Blood Performing Organization Address [facility] Facility[facility] Phone Number [facility] [address] [place] [address] CT chest without IV contrast (01/15/2020 5:54 PM CDT) Specimen Narrative Performed At FINAL REPORT [facility] [employer] CT of the chest, without contrast Clinical History: shortness of breath, ascites Technique: CT of the chest is performed without intravenous contrast administration. This exam was performed according to our departmental dose optimization program which includes automated exposure control, adjustment of the mA and/or kV according to patient's size and/or use of iterative reconstructive technique. Comparison Film: Chest radiograph date d January 15, 2020 Discussion: Visualized thyroid gland [...] Roger Hampton MD Report Verified Date/Time: 01/15/2020 17:57:54 Reading Location: [facility] [address] [place], [place] [address] Reading Room Procedure Note Interface, External Ris [...] Verified Date/Time: 01/15/2020 1 7:57:54 Reading Location: [facility] C013[facility] Con sult Reading Room Performing Organization Address City/State/Zipcode Phone Number GE RIS XR chest 2 [...] Albaro Alvarado MD Report Verified Date/Time: 01/15/2020 17:16:49 Reading Location: [address] Reading Room Procedure Note Interface, External [...] Verified Date/Time: 01/15/2020 1 7:16:49 Reading Location: [address] Reading Room Performing Organization Address City/[facility]/Zipcode Phone Number GE RIS XR mandible min [...] Albaro Alvarado MD Report Verified Date/Time: 01/15/2020 17:22:12 Reading Location: [address] Reading Room Procedure Note Interface, External [...] Verified Date/Time: 01/15/2020 1 7:22:12 Reading Location: [address] Reading Room Performing Organization Address City/State/Zipcode Phone Number GE RIS Mitochondria M2 Antibody (IgG) (01/15/2020 4:17 PM CDT) Mitochondria M2 Ab <20.0 See Note: U [facility] Comment: INCORPORATED Reference Range: NEGATIVE: < OR = 20.0 EQUIVOCAL: 20.1-24.9 POSITIVE: > OR = 25.0 Specimen Blood Narrative Performed At Performing Lab [facility] [place] [address] [place] [address] Mark Encarnacion MD, PhD, AMINA Performing Organization Address City/[facility]/Zipcode Phone Number [place] [address] [facility] Iron, TIBC, % sat. (without ferritin) (01/15/2020 4:17 PM CDT) Pathologist Sig nature Iron 144.0 40.0 - 160.[address] [facility] ug/dL [facility] TIBC 129 (L) 250 - 450 ug/dL [facility] Iron % Saturation 112 (H) 20 - 55 % [facility] Specimen Blood Narrative Performed At Shirt Finisher ID - DB [facility] Performing Organization Address [facility] Phone Number [facility] [address] [place] [address] CENTER Hepatitis C antibody (01/15/2020 4:17 PM CDT) Pathologist Sig nature Hepatitis C Ab Nonreactive Nonreactive [facility] Specimen Blood Narrative Performed At Shirt Finisher ID - DB [facility] Performing Organization Address [facility] Facility[facility] Phone Number [address] [address] CENTER Cytomegalovirus antibody, IgM (01/15/2020 4:17 PM CDT) Pathologist Sig nature CMV IGM Negative Negative, Equivocal [facility] Specimen Blood Narrative Performed At CMV IgM Result Interpretation: [facility] </= 0.8 Al Negative 0.9-1.0 Al Equivocal >/= 1.1 Al Positive Performing Organization Address [facility] Phone Number [address] [address] CENTER Actin (Smooth Muscle) Antibody, IgG (01/15/2020 4:17 PM CDT) Anti-Smooth 23 (H) See Note: U [facility] Comment: INCORPORATED Reference Range: <20 NEGATIVE > OR = 20 POSITIVE Antibodies recognizing actin are the main component of smooth muscle antibodies associated with autoimmune liver disease. Actin antibodies are found in approximately 75% of patients with autoimmune hepatitis (AIH) type 1, approximately 65% of patients with autoimmune cholangitis, approximately 30% of patients with primary biliary cirrhosis, and approximately 2% of healthy people. High values are closely correlated with AIH type 1. Specimen Blood Narrative Performed At Performing Lab [facility] [place] [address] [address] [place] [address] Mark Encarnacion MD, PhD, AMINA Performing Organization Address City/[facility] Facility[facility] Phone Number [place] [address] INCORPORATED [address] [facility] [id number] (01/15/2020 4:17 PM CDT) Pathologist Sig nature A-1 Antitrypsin 121.20 90.00 - 200.00 [facility] mg/dL [facility] Specimen Blood Narrative Performed At Shirt Finisher ID - DB [facility] Performing Organization Address City/[facility] Facility[facility] Phone Number [address] [address] [place] Hepatitis A antibody, IgM (01/15/2020 4:17 PM CDT) Pathologist Sig [facility] Hep A IgM Nonreactive Nonreactive [facility] Specimen Blood Narrative Performed At Shirt Finisher ID - DB [facility] Performing Organization Address [facility] Phone Number [address] [address] [place] Carbohydrate antigen 19-9 (CA 19-9) (01/15/2020 4:17 PM CDT) CA 19-9 32 <34 U/mL [facility] Comment: INCORPORATED This test was performed using the Siemens Chemilumines cent method. Values obtained from different assay methods cannot be used interchangeably. CA19-9 levels, regardless of value, should not be inte rpreted as absolute evidence of the presence or absence of disease. Specimen Blood Narrative Performed At Performing Lab [facility] [place] [address] [place] [address] Mark Encarnacion MD, PhD, AMINA Performing Organization Address City/[facility] Facility[facility] Phone Number [place] [address] INCORPORATED [address] [facility] Ceruloplasmin (01/15/2020 4:17 PM CDT) Pathologist Sig nature Ceruloplasmin 21 18 - 53 mg/dL [facility] JERAMY Specimen Blood Narrative Performed At Performing Lab [facility] *BEATRIZ [employer] Diagn[facility], [address] [place] [address] Jorje Jauregui MD, PhD Performing Organization Address City/[facility]/Zipcode Phone Number [facility] [place] [address] INCORPORATED [id number] [employer] Zinc (01/15/2020 4:17 PM CDT) Zinc 39 (L) 60 - 130 [facility] Comment: mcg/dL INCORPORATED This test was developed and its analytical performance characteristics have been determined by [employer]. It has not been cleared or approved by [facility] FDA. This assay has been validated pursuant to the CLI A regulations and is used for clinical purposes. Specimen Blood Narrative Performed At Performing Lab [employer] [facility] [employer] *[employer] Diagnostics [facility], [id number] [place] [id number] Jorje Jauregui MD, PhD Performing Organization Address [facility] [place]/[facility] Facility[facility] Phone Number [place] [id number] [facility] Hepatitis B core antibody, IgM (01/15/2020 4:17 PM CDT) Pathologist Sig nature Hep B C IgM Nonreactive Nonreactive [facility] Specimen Blood Narrative Performed At Shirt Finisher ID - DB [facility] Performing Organization Address City/[facility]/Zipcode Phone Number [address] [address] CENTER EBV-VCA antibody, IgM (01/15/2020 4:17 PM CDT) GABRIEL CHING VIRAL Negative Negative, Equivocal [facility] CAPSID ANTIGEN IGM [facility] Specimen Blood Narrative Performed At Gabirel Ching Viral Capsid Antigen IgM Result [facility] Interpretation: </= 0.8 Al Negative 0.9-1.0 Al Equivocal >/= 1.1 Al Positive Performing Organization Address City/[facility]/Zipcode Phone Number [address] [address] C[place] EBV-VCA antibody, IgG (01/15/2020 4:17 PM CDT) GABRIEL CHING VIRAL Positive (A) Negative, [facility] CAPSID ANTIGEN IGG Equivocal [facility] Specimen Blood Narrative Performed At Gabriel Ching Viral Capsid Antigen IgG Result [facility] Interpretation: </= 0.8 Al Negative 0.9-1.0 Al Equivocal >/= 1.1 Al Positive Performing Organization Address City/[facility] Facility[facility] Phone Number [address] [address] [place] Hepatitis B core antibody, total (01/15/2020 4:17 PM CDT) Pathologist Sig nature Hep B Core Total Ab Nonreactive Nonreactive [facility] Specimen Blood Narrative Performed At Shirt Finisher MABLE Downs [facility] Performing Organization Address City/[facility] Phone Number [address] [address] CENTER Vitamin D, 25-Hydroxy (01/15/2020 4:17 PM CDT) Pathologist Sig nature Vitamin D 25-Hydroxy 6.2 (L) 6.6 - 49.9 ng/mL [facility] Specimen Blood Narrative Performed At Effective 05/07/2017: Reference Range Ch von [facility] New: 6.6-49.9 ng/mL Previous: 13.0-47.8 ng/mL Recommended Vitamin D Target Range: 30.0-40.0 ng/mL Shirt Finisher ID - DB Performing Organization Address City/[facility] Facility[facility] Phone Number [address] [address] C[place] RPR (01/15/2020 4:17 PM CDT) Pathologist Sig nature RPR Nonreactive Nonreactive [facility] Specimen Blood Performing Organization Address [facility] Facility[facility] Phone Number [address] [address] C[place] Hepatitis B surface antibody (01/15/2020 4:17 PM CDT) Pathologist Sig nature Hep B S Ab 25.0 (H) <8.0 mIU/mL [facility] Specimen Blood Narrative Performed At Shirt Finisher ID - DB [facility] Performing Organization Address [facility] [place]/[facility] Facilitycode Phone Number [address] [address] [place] Hepatitis B surface antigen (01/15/2020 4:17 PM CDT) Pathologist Sig nature HBsAg Screen Nonreactive Nonreactive [facility] Specimen Blood Narrative Performed At Specimen is considered negative for HBsAg. [facility] Performing Organization Address [facility] [place] Facility[facility] Phone Number [address] [address] [place] Cytomegalovirus antibody, IgG (01/15/2020 4:17 PM CDT) CYTOMEGALOVIRUS, Positive (A) Negative, [facility] IGG Equivocal [facility] Specimen Blood Narrative Performed At CMV IgG Result Interpretation: [facility] </= 0.8 Al Negative 0.9-1.0 Al Equivocal >/=1.1 Al Positive Performing Organization Address [facility] Phone Number [address] [address] [place] aPTT (01/15/2020 4:17 PM CDT) Pathologist Sig nature PTT 36.8 (H) 22.5 - 36.0 seconds [facility] Specimen Blood Performing Organization Address [facility] Facility[facility] Phone Number [address] [address] C[place] Fibrinogen (01/15/2020 4:17 PM CDT) Pathologist Sig nature Fibrinogen 114 (L) 225 - 434 mg/dl [facility] Specimen Blood Performing Organization Address [facility] Facility[facility] Phone Number [address] [place], [place] [id number] CENTER Anti-Nuclear Antibody (REILLY) (01/15/2020 4:17 PM CDT) Pathologist Sig nature REILLY Negative Negative [facility] Specimen Blood Narrative Performed At Test performed by IFA method. [facility] Test performed by IFA method. Performing Organization Address City/State/Zipcode Phone Number [address] [address] C[place] T3 (01/15/2020 4:17 PM CDT) Pathologist Sig [facility] T3, Total 51 48 - 159 ng/dL [facility] Specimen Blood Narrative Performed At This result has an attachment that is no t available. Performing Organization Address City/State/[facility] Phone Number [facility] [address] [place], [place] Transferrin (01/15/2020 4:17 PM CDT) Pathologist Sig [facility] Transferrin 102 (L) 174 - 382 mg/dL [facility] Specimen Blood Narrative Performed At Shirt Finisher ID - DB [facility] Specimen moderately icteric Performing Organization Address City/[facility] Facility[facility] Phone Number [address] [address] [place] TSH (01/15/2020 4:17 PM CDT) Pathologist Sig nature TSH 5.549 (H) 0.350 - 4.940 uIU/mL [facility] Specimen Blood Narrative Performed At Shirt Finisher ID - DB [facility] Performing Organization Address City/[facility]/Zipcode Phone Number [address] [address] C[place] T4 (01/15/2020 4:17 PM CDT) Pathologist Sig nature T4, Total 4.3 (L) 4.9 - 11.7 ug/dL [facility] Specimen Blood Narrative Performed At Shirt Finisher ID - NTP [facility] Performing Organization Address [facility] [place]/[facility] Facility[facility] Phone Number [address] [address] [place] Hemoglobin A1c (01/15/2020 4:17 PM CDT) Pathologist Sig nature Hemoglobin A1C <3.8 (L) 4.3 - 6.1 % [facility] Specimen Blood Performing Organization Address [facility] [place]/[facility] Phone Number [address] [address] C[place] Ferritin (01/15/2020 4:17 PM CDT) Pathologist Sig nature Ferritin 489.86 (H) 5.00 - 275.00 ng/mL [facility] Specimen Blood Narrative Performed At Shirt Finisher ID - [facility] Performing Organization Address [facility] [place]/[facility] Phone Number [address] [address] [place] Carcinoembryonic Antigen (CEA) (01/15/2020 4:17 PM CDT) Pathologist Sig nature CEA, SERUM 7.9 (H) 0.0 - 5.0 ng/mL [facility] Specimen Blood Narrative Performed At Shirt Finisher ID - DB [facility] Performing Organization Address [facility] Phone Number [address] [address] [place] Ethanol (01/15/2020 4:17 PM CDT) Pathologist Sig nature Ethanol Lvl <10 <=10 mg/dL [facility] Specimen Blood Narrative Performed At Shirt Finisher ID - [facility] Performing Organization Address [facility] [place] Facility[facility] Phone Number [address] [address] [place] 2D Echo W/Doppler(CW/PW/Color) (01/15/2020 2:45 PM CDT) Pathologist Sig nature Ejection Fraction [facility] ECHO HEARTLAB [facility] Specimen Narrative Performed At Transthoracic Echocardiography Report (T TE) [facility] ECHO HEARTLAB [facility] Demographics Patient Name CICI CALDERON Date of Study 01/15/2020 ALYSE Gender Female Visit Number [id number] Race Unknown Room Number 1515 Number Date of 1955 Referring Physician Ren Hernandez MD Age 64 year(s) Global Supply Chain Director Lisa Bautista [facility] S Interpreting Jai grajdea MD Physician Procedure Type of Study TTE [...] is normal (male - LVIDd 4.2-5.8cm) . Normal LV wall thickness. All of the LV segments contract normally . Estimated LVEF by qualitative assessment is normal (>60%) . Normal diastolic func tion. Left Atrium LA size is mildly enlarged [...] root size (SInus of Valsalva diameter) is norm al . Pericardium No significant pericardial effusion is visualized. IVC/SVC/PA/PV/Pleural A left pleural effusion is noted. Ascites is present. Chambers/Structures Left Atrium LA Dimension: 4.15 cm LA Area: 23.36 cm^2 LA Volume: 72.55 ml LA Vol. Index: 38 ml/m^2 Left Ventricle LVIDd: 4.83 cm LVEDV:102.1 m l LVIDs: 2.64 cm LV Septum Diastolic: 0.57 [...] Study 01/15/2020 ALYSE Gender Female Visit Number [id number] Race Unknown Room [place] [address] Number Date of 1955 Referri Physician Ren [...] l/min/m^2 Performing Organization Address City/State/Zipcode Phone Number [facility] ECHO HEARTLAB [facility] Carotid doppler bilateral (01/15/2020 2:41 PM CDT) [facility] nature Ejection Fraction [facility] ECHO HEARTLAB [facility] Specimen Impressions Performed At Right Impression [facility] ECHO HEARTLAB [facility] 1. The internal, common and external [...] +---- + + !Prox CCA !109 !19.8!60 ! ! ! ! + +----+----+-----+ +---- + + !Dist CCA !98.8!18.9!60 ! ! ! ! + +----+----+-----+ +---- + + !Prox ICA !91.1!28 !60 ! ! ! ! + +----+----+-----+ +---- + + !Dist ICA !115 !35 !60 ! ! ! ! + +----+----+-----+ +---- + + !Prox ECA !104 !14.7!60 ! ! ! ! + +----+----+-----+ +---- + + !Vertebral !67.3!18.2!60 ! ! ! ! + +----+----+-----+ +---- + + !Prox Subclavian!103 !11.2!60 ! ! ! ! + +----+----+-----+ +---- + + - Additional Measurements:ICAPSV/CCAPSV 1.16.ICAEDV/CCAEDV 1.77. Carotid Left Measurements + +----+----+-----+ +---- + + !Location !PSV !EDV !Angle!%Stenosis 2D!%Stenosis Doppler!Tortuosity ! + +----+----+-----+ +---- + + !Prox CCA !114 !19.6!60 ! ! ! ! + +----+----+-----+ +---- + + !Dist CCA !103 !20.4!60 ! ! ! ! + +----+----+-----+ +---- + + !Prox ICA !87 !24.3!60 ! ! ! ! + +----+----+-----+ +---- + + !Dist ICA !98.8!29.8!60 ! ! ! ! + +----+----+-----+ +---- + + !Prox ECA !84.7!14.1!60 ! ! ! ! + +----+----+-----+ +---- + + !Vertebral !90.9!23.5!60 ! ! ! ! + +----+----+-----+ +---- + + !Prox Subclavian!125 !14.1!60 ! ! ! ! + +----+----+-----+ +---- + + - Additional Measurements:ICAPSV/CCAPSV 0.96.ICAEDV/CCAEDV 1.52. Narrative Performed At LAB - Carotid Duplex Study [facility] ECHO HEARTLAB [facility] Demographics Patient Name CICI CALDERON Date of Study 01/15/2020 ALYSE Age 64 Visit Number [id number] Gender Female Accession Number [id number] Date of 1955 Referring [facility] Room Number 1515 Physician Global Supply Chain Director Herbert Lechuga Interpreting Chelsea Resendez [facility] Physician Procedure Type of Study: Cerebral: Carotid, CAROTID DOPPLER, CHRIS ATERAL. Indications for Study:Liver transplant e valuation. Patient Status:STAT. Study Location:Portable. Technical Quality:Adequate visualization . Risk Factors History of Disease +---------+----+ + !Diagnosis!Date!Comments ! +---------+----+ + !Other ! !COPD, Liver Disease, Obesity ! +---------+----+ + Procedure Note Interface, External Ris In - 01/16/2020 12:34 AM CDT [facility] LAB - Carotid Duplex Study Demographics Patient Name CICI CALDERON Ramirez e of Study 01/15/2020 ALYSE Age 64 Visit Number [id number] Gen margarita Female Accession Number [id number] Ramirez e of 1955 Referring Eliecer Todd m Number 1515 Physician Global Supply Chain Director Herbert Jacobs erpreting Chelsea Resendez, T Alvin foss MD Procedure [...] 1.52. Performing Organization Address City/State/Zipcode Phone Number [facility]ART[facility] Hepatitis panel, acute (01/15/2020 8:32 AM CDT) Pathologist Sig nature Hep A IgM Nonreactive Nonreactive [facility] Hep B C IgM Nonreactive Nonreactive [facility] Hepatitis C Ab Nonreactive Nonreactive [facility] HBsAg Screen Nonreactive Nonreactive [facility] Specimen Blood Narrative Performed At Shirt Finisher ID - [facility] Performing Organization Address City/[facility] Phone Number [address] [address] C[place] Ammonia (01/15/2020 8:32 AM CDT) Pathologist Sig nature Ammonia 19 18 - 72 mol/L [facility] Specimen Blood Narrative Performed At Shirt Finisher ID - [facility] Performing Organization Address City/[facility] Phone Number [address] [address] C[place] Uric acid (01/15/2020 3:56 AM CDT) Pathologist Sig nature Uric Acid 15.7 (H) 2.6 - 7.2 mg/dL [facility] Specimen Blood Narrative Performed At Shirt Finisher ID - [facility] Specimen moderately icteric Performing Organization Address [facility] [place] Phone Number [address] [address] C[place] Gamma Glutamyl Transferase (GGT) (01/15/2020 3:56 AM CDT) Pathologist Sig nature GGT 15 9 - 64 U/L [facility] Specimen Blood Narrative Performed At Shirt Finisher ID [facility] Specimen moderately icteric Performing Organization Address [facility] [place] Phone Number [address] [address] [place] Lipid panel (01/15/2020 3:56 AM CDT) Pathologist Sig nature Triglycerides 86 mg/dL [facility] [place] Cholesterol 101 mg/dL [facility] ICAL [place] HDL 12 mg/dL [facility] LDL Calculated 72 mg/dL [facility] [place] Specimen Blood Narrative Performed At Triglyceride Reference Range: [facility] Low Risk <150 Borderline 150-199 High Risk 200-499 Very High Risk >=500 Cholesterol Reference Range: Low Risk <200 Borderline 200-239 High Risk >240 HDL Cholesterol Reference Range: Low Risk >=60 High Risk <40 LDL Cholesterol Reference Range: Optimal <100 Near Optimal 100-129 Borderline 130-159 High 160-189 Very High >=190 Shirt Finisher ID - NTP Specimen moderately icteric Performing Organization Address City/State/Zipcode Phone Number [address] [address] [place] SARS-CoV2/RT-PCR (Asymptomatic ONLY) (01/14/2020 7:28 PM CDT) SARS-COV2/RT-PCR Not Detected Not Detected, [facility] Negative [facility] SARS-COV-2 [facility] Specimen Other - Nasopharyngeal wall structure (b arsenio structure) Narrative Performed At Negative results do not preclude SARS-CoV-2 [facility] infection and should not be used as [...] the Act. Fact Sheet for Healthcare Providers: https://www.AskYou/Documents/Xpert%20Xpre ss%20SARS%20CoV-2/Fact%20Sheets/302-3802%20SAR S-COV-2%20HEALTHCARE%20PROVIDERS%20FACT%20SHEE T.pdf Fact Sheet for Healthcare Patients: https://www.AskYou/Documents/Xpert%20Xpre ss%20SARS%20CoV-2/Fact%20Sheets/302-3801%20SAR S-COV-2%20PATIENT%20FACT%20SHEET.pdf Performing Laboratory: [address] [place] [address] Performing Organization Address City/State/[facility] Phone Number [facility] [address] [place] [phone] CENTER after 05/10/2019 Insurance Payer Benefit Plan / Subscriber ID Effective Dates Phone Addre ss Type Group AETNA - AETNA MEDICARE [id number] 2019-Presen [phone] [address] MEDICARE MGD O POS PPO t 2 [id number] [place] [address] CDC REVIEW CDC REVIEW [id number] 2020-[place] [place] [address] Advance Directives For more information, please contact: [phone] Code Status Date Activated Date Inactivated Comments Full Code 01/14/2020 8:09 PM 01/26/2020 8:41 PM This code status was determined by: Patient
--- OUTSIDE RECORDS SUMMARY | 2020-05-10 08:49 | XMS REPORT | Continuity of Care Document ---
:1955 Author Organization [facility] t Address [address] [place] [address] Care Team Providers Name Role Phone Nahun Leonard MD Primary Care Physician Baltazar Hernandez Attending Clinician Unavailable Alfonso Attending Clinician Unavailable Mayank ESPINOSA, R Attending Clinician Unavailable Nhi Montgomery MD Attending [...] Miguel Angel ADRIAN Attending Clinician Ping Kinney MD Attending Clinician Tonia Stone MD Attending Clinician [place] Attending Clinician Unavailable Marie MARCUS Attending Clinician Unavailable Nallely ADRIAN Attending Clinician Zeinab Gooden Attending Clinician Bright Lr MD Attending Clinician Bull Colvin CRNA Attending Clinician Doris ADRIAN Attending Clinician Aaliyah ESPINOSA, P Attending Clinician Unavailable Prabha Fortune MD Attending Clinician PRABHA FORTUNE Attending Clinician Unavailable Yaneli ESPINOSA Attending Clinician Unavailable Holli Borden MD Attending Clinician Joshua ADRIAN Attending Clinician Niraj MARCUS Attending Clinician Unavailable Markus ESPINOSA Attending Clinician Unavailable TONIA STONE Admitting Clinician Unavailable Joshua ADRIAN Admitting Clinician Payers Payer Name Policy Type Policy Number Effective Date Expiration Date Holli plunkett AETNA - [id number] 2019 [facility] MEDICARE MGD 00:00:00 - Medical CAREAETNA Center MEDICARE HMO POS [id number] [facility] [id number] [address] CDC REVIEWCDC [id number] 2020 [facility] [id number] 00:00:00 - [facility] /[place] [address] Problems Condition Condition Condition Status Onset Resolution Last Treating Co mments Source Name Details Category Date Date Treatment Clinician Date Acute Acute Disease Active [facility] liver 01-13[facility] - failure failure 00:00: Medical 00 [place] Elevated Elevated Disease Active [facility] serum serum 01-10 - creatinine creatinine 00:00: Il dical 00 Center Other Other Disease Active [facility] ascites ascites 01-10kes - 00:00: Medical 00 Center Cirrhosis Cirrhosis Disease Active 2015-[address] [facility] [address] of liver of liver 09-01 Assesschapo Castañeda es - without without 00:00: [...] 2015-[address] [address] hypertensi hypertensi 09-01 [facility] - on on 00:00: t & Plan: Medical 00 Manifeste Center d by ky ngo on imaging. She does not have varices, ascites or HE. 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 09-01 [facility] - 00:00: t & Plan: Medical 00 EGD in Center March 2016 was negative for varices. Obesity Obesity Disease Active 2015-[address] (BMI (BMI 09-01 Assesschapo Arteaga - 35.0-39.9 35.0-39.9 00:00: t & Plan: [...] Last [facility] on on 09-01 Ashlyn Arteaga - 00:00: t & Plan: Medical 00 Recommend Center miralax Screening Screening Disease Active 2015-[address] [facility] [address] [facility] - malignant malignant 00:00: t [...] Allergy 09-01 [facility] - 00:00: Medical 00 [place] Levoflox Drug Active Other (See 2015-[address] acin Intolera Comments) 09-01 and - nce 00:00: diarrhea Medical 00 Center Sulfa Drug Active Rash 2015-[address] [facility] (Sulfona Allergy 09-01 [facility] - mide 00:00: Medical Antibiot 00 Center ics) Tetracyc Drug Active Hives 2015-[address] [facility] lines Allergy 09-01 [facility] - 00:00: Medical 00 [place] Tetracyc Adverse Active hives [facility] line HCl Reaction [facility] Levaquin Adverse Active vomiting/jocy [facility] Reaction rrhea [facility] Erythrom Adverse Active vomiting/jocy [facility] ycin Reaction rrhea [facility] Family History Family Member Diagnosis Comments Start Date Stop Date Source Natural brother Diabetes [facility] Natural brother Hypertension [facility] Natural brother Arthritis [facility] Natural brother COPD [facility] Natural father Diabetes [facility] Natural father Heart disease [facility] Natural mother Diabetes [facility] Natural mother Heart disease [facility] Natural sister Cancer [facility] Social History Social Habit Start Date Stop Date Quantity Comments Source Sex Assigned At [facility] Tobacco use and 2020-04-11 2020-04-11 Never used [facility] - exposure 00:00:00 00:00:00 [facility] Center Alcohol intake 2020-04-11 2020-04-[address] [facility] Holli carcamo rivera - 00:00:00 00:00:00 of alcohol [facility] (finding) Alcohol Comment 2016-07-01 2016-07-01 social last drink Mark Medina - 00:00:00 00:00:00 06/15/16 [facility] Center Smoking Status Start Date Stop Date Source Former smoker 2020-04-11 00:00:00 2020-04-11 00:00:00 [facility] Medications Ordered Filled Start Stop Current Ordering Indication Dosage Frequency Signature Comments Components Source Medication Medication Date Date Medication? Clinician (SIG) Name Name spironolact Yes 25mg QD Take [address] [facility] one 04-11 by mouth [facility] - (ALDACTONE) 09:45: daily. Medi steven 25 MG 26 [place] tablet magnesium Yes Magnesium 400mg QD Take [address] [facility] oxide 04-11 deficiency tablet [facility] - (MAG-OX) 00:00: (400 mg Medica l 400 mg 00 total) by [place] (241.3 mg mouth magnesium) daily. tablet calcitrioL Yes Cirrhosis .5ug QD Take [address] (ROCALTROL) 04-11 of liver capsule L ukes - 0.5 MCG 00:00: without (0.5 mcg Med ical capsule 00 ascites, total) by [facility] ter unspecified mouth hepatic daily. cirrhosis type (HCC) ergocalcife 2020- Yes Vitamin D [id number] Q7D Take [address] [facility] [address] rol 04-11 [...] 00:00 malignant mouth as M edical capsule 35 :00 neoplasm needed Center (every 8 hours- as antihistam ine by PCP). rifAXIMin 2019- No Hepatic 550mg Q.5D Take [address] 550 mg Tab 02-02 encephalopa tablet [facility] - 00:00: 00:00 thy (HCC) (550 mg Medi steven 00 :00 total) by Center mouth 2 (two) times daily. ergocalcife 2019- No [id number] Q7D Take [address] rol 01-31 capsule [facility] - (ERGOCALCIF 00:00: 00:00 (50,000 Me dical MARIN) 1,250 00 :00 Units Center mcg (50,000 total) by unit) mouth once capsule a week. pantoprazol 2019- Yes 40mg QD Take [address] [facility] e 01-26 tablet (40 [facility] - (PROTONIX) 00:00: mg total) Me dical 40 MG 00 by mouth Center tablet daily. folic acid 2019- No 1mg QD Take [address] (FOLVITE) 1 01-26 tablet (1 Fe kes - MG tablet 00:00: 00:00 mg total) Me dical 00 :00 by mouth Center daily. furosemide 2019-2019- No 40mg Q.5D Take [address] [address] (LASIX) 20 01-25 by mouth 2 Fe kes - MG tablet 16:18: 00:00 (two) Medica l 24 :00 times Center daily . spironolact 2019-2019- No 25mg QD Take [address] [facility] one 01-25 by mouth [facility] - (ALDACTONE) 16:18: 00:00 daily. Med ical 25 MG 24 :00 Center tablet calcitrioL 2019-2019- No .5ug QD Take 0.[address] (ROCALTROL) 01-25 mcg by [facility]ukes - 0.5 MCG 16:16: 00:00 mouth Medical capsule 08 :00 daily. Center rifAXIMin 2019-0 Yes 550mg Q.5D Take 1 [facility] 550 mg Tab 01-25 tablet [facility]ukes - 00:00: (550 mg Medical 00 total) by Center mouth 2 (two) times daily. lactulose 2020-0 Yes 20g Q.[id number] Take [address] (CHRONULAC) 01-25 [id number] mLs (20 g [facility] - 20 gram/30 00:00: 3D total) by Il dical mL solution 00 mouth 3 Cente r (three) times daily. calcitrioL 2020- No .5ug QD Take [address] (ROCALTROL) 01-25 capsule Luke s - 0.5 MCG 00:00: 00:00 (0.5 mcg Medic al capsule 00 :00 total) by Center mouth daily. magnesium 2020- No 400mg QD Take [address] oxide 01-25 tablet [facility]ukes - (MAG-OX) 00:00: 00:00 (400 mg Medic al 400 mg 00 :00 total) by Center (241.3 mg mouth magnesium) daily. tablet midodrine 2020- No 2.5mg Q.[id number] Take [address] (PROAMATINE 01-25 [id number] tablet [facility] - ) 2.5 MG 00:00: 23:59 3D (2.5 mg Medic al tablet 00 :00 total) by Center mouth 3 (three) times daily for 30 days. traMADoL 2020- No 50mg Take [address] [facility] (ULTRAM) 50 01-25 tablet (50 L ukes - mg tablet 00:00: 23:59 mg total) Me dical 00 :00 by mouth Center every 6 (six) hours as needed for up to 10 days. Max Daily Amount: 200 mg Albuterol Albuterol Yes Mitzy [address] Sulfate HFA Sulfate HFA 4-09 [place] needed [facility] Cimetidine Cimetidine Yes Mitzy [address] [facility] as needed [facility] Calcitriol Calcitriol Yes Mitzy [address] [facility] Lactulose Lactulose Yes Mitzy [address] [facility] Xifaxan Xifaxan Yes Mitzy [address] [facility] ent [facility] Folic Acid Folic Acid Yes Mitzy [address] [facility] Spironolact Spironolact Yes Mitzy [address] one one [facility] Vitamin D2 Vitamin D2 Yes Mitzy [address] [facility] MagOx 400 MagOx 400 Yes Mitzy [address] [facility] with food [facility] Tramadol Tramadol Yes Mitzy [address] HCl HCl [place] as needed [facility] Midodrine Midodrine Yes Mitzy [address] HCl HCl [facility] [place] [facility] Pantoprazol Pantoprazol Yes Mitzy [address] e Sodium e Sodium [facility] [place] mixed with Lukes - apple Memoria juice or l applesauce [facility] ent Clinics Immunizations Ordered Filled Immunization Date Status Comments [facility] e Immunization Name Name Hepatitis A (adult) Hepatitis A (adult) 2020-02-21 Completed [facility] - 00:00:00 [facility] Hepatitis B (adult) Hepatitis B (adult) 2020-02-21 Completed [facility] - 00:00:00 [facility] Vital Signs Vital Name Observation Time Observation Value Comments Source Systolic blood 2020-04-11 09:39:00 104 mm[Hg] [facility] Diastolic blood 2020-04-11 09:39:00 43 mm[Hg] [facility] Heart rate 2020-04-11 09:39:00 85 /min [facility] Body temperature 2020-04-11 09:39:00 36.28 Shaneka [facility] Respiratory rate 2020-04-11 09:39:00 18 /min [facility] Body height 2020-04-11 09:39:00 162.6 cm [facility] Body weight 2020-04-11 09:39:00 84.959 kg [facility] BMI 2020-04-11 09:39:00 32.15 kg/m2 [facility] Oxygen saturation in 2020-04-11 09:39:00 95 /min [facility] Arterial blood by Medical Ce nter Pulse oximetry Procedures Procedure Date / Time Performing Clinician Source Performed PROTHROMBIN TIME/INR 2020-05-09 12:29:00 Kristofer Montgomery [facility] METABOLIC 2020-05-09 12:29:[address] [facility] CBC W/PLT COUNT & AUTO 2020-05-09 12:29:00 AmericaKristofer theodore [facility] BILIRUBIN, DIRECT 2020-05-09 12:29:00 Kristofer Montgomery [facility] PROTHROMBIN TIME/INR 2020-05-02 13:25:00 Kristofer Montgomery [facility] 2020-05-02 13:25:[address] [facility] CBC W/PLT COUNT & AUTO 2020-05-02 13:25:00 AmericaKristofer theodore [facility] BILIRUBIN, DIRECT 2020-05-02 13:25:00 Kristofer Montgomery [facility] PLATELET ESTIMATION 2020-05-02 13:25:00 Kristofer Montgomery [facility] PROTHROMBIN TIME/INR 2020-04-25 13:13:00 Kristofer Montgomery [facility] COMPREHENSIVE METABOLIC 2020-04-25 13:13:[address] [facility] CBC W/PLT COUNT & AUTO 2020-04-25 13:13:00 AmericaKristofer [facility] BILIRUBIN, DIRECT 2020-04-25 13:13:00 Kristofer Montgomery [facility] PLATELET ESTIMATION 2020-04-25 13:13:00 AmericaKristofer theodore [facility] PROTHROMBIN TIME/INR 2020-04-18 08:56:00 AmericaKristofer theodore [facility] COMPREHENSIVE METABOLIC 2020-04-18 08:56:[address] [facility] CBC W/PLT COUNT & AUTO 2020-04-18 08:56:00 Kristofer Montgomery [facility] BILIRUBIN, DIRECT 2020-04-18 08:56:00 Kristofer Montgomery [facility] XR DXA BONE DENSITY STUDY 2020-04-11 11:51:00 Kristofer Montgomery [facility] ALPHA FETOPROTEIN (AFP), 2020-04-11 11:13:00 Sia Riley [facility] TUMOR MARKER [facility] BILIRUBIN, DIRECT 2020-04-11 11:13:00 Sia Riley [facility] COMPREHENSIVE METABOLIC 2020-04-11 11:13:[address] [facility] PROTHROMBIN TIME/INR 2020-04-11 11:13:00 Sia Riley [facility] CBC W/PLT COUNT & AUTO 2020-04-11 11:13:00 Sia Riley [facility] PROTHROMBIN TIME/INR 2020-03-10 08:03:00 Kristofer Montgomery [facility] COMPREHENSIVE METABOLIC 2020-03-10 08:03:[address] [facility] CBC W/PLT COUNT & AUTO 2020-03-10 08:03:00 Kristofer Montgomery [facility] BILIRUBIN, DIRECT 2020-03-10 08:03:00 AmericaKristofer theodore [facility] MISCELLANEOUS LAB ORDER 2020-02-15 12:29:00 Kristofer Montgomery [facility] MAGNESIUM 2020-02-15 12:29:00 Kristofer Montgomery [facility] BILIRUBIN, DIRECT 2020-02-15 12:29:00 Kristofer Montgomery [facility] COMPREHENSIVE METABOLIC 2020-02-15 12:29:[address] [facility] PROTHROMBIN TIME/INR 2020-02-15 12:29:00 AmericaKristofer [facility] CBC W/PLT COUNT & AUTO 2020-02-15 12:29:00 AmericaKristofer theodore [facility] PROTHROMBIN TIME/INR 2020-02-08 10:23:00 AmericaKristofer theodore [facility] COMPREHENSIVE [facility] 2020-02-08 10:23:[address] [facility] CBC W/PLT COUNT & AUTO 2020-02-08 10:23:00 AmericaKristofer [facility] BILIRUBIN, DIRECT 2020-02-08 10:23:00 AmericaKristofer [facility] PLATELET ESTIMATION 2020-02-08 10:23:00 AmericaKristofer [facility] PROTHROMBIN TIME/INR 2020-02-01 09:25:00 AmericaKristofer [facility] 2020-02-01 09:25:[address] [facility] CBC W/PLT COUNT & AUTO 2020-02-01 09:25:00 AmericaKristofer theodore [facility] BILIRUBIN, DIRECT 2020-02-01 09:25:00 AmericaKristofer theodore [facility] RHYTHM STRIP - SCAN 2020-01-27 10:00:12 Provider, Default [facility] CARDIAC CATH REPORT - SCAN 2020-01-27 10:00:07 Provider, Default [facility] TRANSFUSE LEUKO-REDUCED 2020-01-26 22:41:07 Miguel Angel, Kaylin [facility] PLATELETS [facility] METANEPHRINES 2020-01-26 14:51:00 SantikaBlanca noriega [facility] HE[facility] FUN[facility] PANEL 2020-01-26 03:50:00 Galdino Roscoe [facility] PROTHROMBIN TIME/INR 2020-01-26 03:50:00 Galdino Roscoe [facility] CALCIUM, IONIZED 2020-01-26 03:50:00 Russ Ha [facility] COMPREHENSIVE METABOLIC 2020-01-26 03:50:[address] [facility] PHOSPHORUS 2020-01-26 03:50:00 Leland [facility] MAGNESIUM 2020-01-26 03:50:00 [facility] CBC W/PLT COUNT & AUTO 2020-01-26 03:50:00 Florian Kinney [facility] HEPATIC FUNCTION PANEL 2020-01-25 03:47:00 [facility] PROTHROMBIN TIME/INR 2020-01-25 03:47:00 [facility] BASIC METABOLIC PANEL (7) 2020-01-25 03:47:00 Leena Arias [facility] MAGNESIUM 2020-01-25 03:47:00 [facility] CBC W/PLT COUNT & AUTO 2020-01-25 03:47:00 Florian Kinney [facility] (CELLAVISION MANUAL DIFF) 2020-01-25 03:47:00 Florian Kinney [facility] TRANSFUSION SERVICE REPORT 2020-01-24 18:00:13 Provider, [facility] - - SCAN [facility] PULMONARY FUNCTION - SCAN 2020-01-24 13:10:09 Provider, [facility] SPIROMETRY 2020-01-24 10:41:00 [facility] DLCO (SINGLE BREATH 2020-01-24 10:41:00 [facility] - DIFFUSION) [facility] LUNG VOLUMES 2020-01-24 10:41:00 [facility] 6 MINUTE WALK(FOR LUNG 2020-01-24 10:20:00 [facility] - TRANSPLANT ONLY) [facility] HEPATIC FUNCTION PANEL 2020-01-24 03:57:00 [facility] PROTHROMBIN TIME/INR 2020-01-24 03:57:00 [facility] CALCIUM, IONIZED 2020-01-24 03:57:00 Kermit Nicole [facility] PHOSPHORUS 2020-01-24 03:57:00 Kermit Nicole [facility] BASIC METABOLIC PANEL (7) 2020-01-24 03:57:00 Leena Arias [facility] MAGNESIUM 2020-01-24 03:57:00 [place] CBC W/PLT COUNT & AUTO 2020-01-24 03:57:00 Leena Arias [facility] PREPARE LEUKO-REDUCED RBC 2020-01-23 23:54:00 Vitor Orozco [facility] TRANSFUSION SERVICE REPORT 2020-01-23 18:00:37 Provider, [facility] HEPATIC FUNCTION PANEL 2020-01-23 04:32:00 Galdino Res[facility] PROTHROMBIN TIME/INR 2020-01-23 04:32:00 [facility]dino [facility] B-TYPE NATRIURETIC FACTOR 2020-01-23 04:32:00 Kermit Nicole [facility] (BNP) [facility] CALCIUM, IONIZED 2020-01-23 04:32:00 Kermit Nicole [facility] PHOSPHORUS 2020-01-23 04:32:00 Kermit Nicole [facility] BASIC METABOLIC PANEL (7) 2020-01-23 04:32:00 Leena Arias [facility] MAGNESIUM 2020-01-23 04:32:00 Leena Arias [facility] CBC W/PLT COUNT & AUTO 2020-01-23 04:32:00 Leena Arias [facility] (CELLAVISION MANUAL DIFF) 2020-01-23 04:32:00 Juana [facility] PREPARE LEUKO-REDUCED 2020-01-22 23:54:00 Kaylin Michelle [facility] PLATELETS [facility] TRANSFUSION SERVICE REPORT 2020-01-22 18:01:00 Provider, Bozena [facility] SCAN [facility] TRANSFUSE LEUKO-REDUCED RED 2020-01-22 14:30:53 Vitor Orozco [facility] BLOOD CELLS [facility] CORTISOL 2020-01-22 08:23:00 Isbrandonsedrick [facility] CALCIUM, IONIZED 2020-01-22 04:35:00 Leland [facility] HEPATIC FUNCTION PANEL 2020-01-22 04:35:00 [place] Resnick [facility] BASIC METABOLIC PANEL (7) 2020-01-22 04:35:00 Juana [facility] MAGNESIUM 2020-01-22 04:35:00 [facility] CBC W/PLT COUNT & AUTO 2020-01-22 04:35:00 [facility] (CELLAVISION MANUAL DIFF) 2020-01-22 04:35:00 Juana [facility] PROTHROMBIN TIME/INR 2020-01-22 04:34:00 [facility] DIRECT [facility]HG (KRISTI)/DIRECT 2020-01-22 04:34:00 Gregory [facility] ABORH, MANUAL 2020-01-22 04:34:00 Gregory [facility] TRANSFUSION SERVICE REPORT 2020-01-21 18:00:48 Provider [facility] BODY FLUID CULTURE + GRAM 2020-01-21 16:54:00 Miguel Angel, Kaylin [facility] BODY FLUID CELL COUNT WITH 2020-01-21 16:54:00 Miguel Angel, Kaylin [facility] US PARACENTESIS 2020-01-21 16:40:00 [facility] MISCELLANEOUS LAB ORDER 2020-01-21 09:31:00 Orestes [facility] HEPATIC FUNCTION PANEL 2020-01-21 09:31:00 [facility] PROTHROMBIN TIME/INR 2020-01-21 09:31:00 [facility] COMPREHENSIVE METABOLIC 2020-01-21 09:31:[address] [facility] PHOSPHORUS 2020-01-21 09:31:00 [facility] 2020-01-21 09:31:00 [place] CORTISOL 2020-01-21 09:31:00 EddiesrikanthChristine [facility] RETICULOCYTE COUNT 2020-01-21 09:31:00 Gregory Oum[facility] PERIPHERAL BLOOD SMEAR - 2020-01-21 09:31:00 Miguel Angel, Kaylin [facility] HOLD ONLY [facility] CBC W/PLT COUNT & AUTO 2020-01-21 09:31:00 Ha [facility] XR CHEST 1 VIEW 2020-01-21 09:10:00 [facility] PORTABLE/BEDSIDE [facility] METANEPHRINES, 24 HOUR 2020-01-20 22:51:00 [facility] URINE [facility] CATECHOLAMINES, 2020-01-20 22:51:00 [facility] - FRACTIONATED, 24HR URINE Medical Center TYPE AND SCREEN, AUTOMATED 2020-01-20 20:39:00 Miguel Angel, Kaylin C [facility] XR CHEST 1 VIEW 2020-01-20 20:28:00 [facility]/BEDSIDE [facility] TRANSFUSION SERVICE REPORT 2020-01-20 18:01:30 ProviderBozena [facility] - - SCAN Scanning [facility] MR ABDOMEN WITHOUT IV 2020-01-20 17:54:00 [facility] CONTRAST [facility] HEPATIC FUNCTION PANEL 2020-01-20 04:10:00 [facility] PROTHROMBIN TIME/INR 2020-01-20 04:10:00 [facility] CALCIUM, IONIZED 2020-01-20 04:10:00 [facility] COMPREHENSIVE METABOLIC 2020-01-20 04:10:00 [facility] PHOSPHORUS 2020-01-20 04:10:00 [facility] MAGNESIUM 2020-01-20 04:10:00 [facility] CBC W/PLT COUNT & AUTO 2020-01-20 04:10:00 Russ Ha [facility] (CELLAVISION MANUAL DIFF) 2020-01-20 04:10:00 [facility] LEUKO-REDUCED RBC 2020-01-19 23:54:00 Miguel Angel, Kaylin [facility] URINALYSIS W/ MICROSCOPIC 2020-01-19 23:19:00 Russ Ha [facility] SODIUM, RANDOM URINE 2020-01-19 23:19:00 [facility] BLO[facility] 2020-01-19 21:45:00 Galdino [facility] BLOOD CULTURE 2020-01-19 21:44:00 Galdino [facility] [id number] 2020-01-19 21:43:00 Kristofer Montgomery [facility] TRANSFUSION SERVICE REPORT 2020-01-19 18:01:08 Bozena Lopes [facility] SCAN [facility] R & L CATH / CORONARY 2020-01-19 16:30:[address] [facility] ANGIOS (+/- LV) [facility] BLOOD GAS, ARTERIAL 2020-01-19 15:44:00 Kristofer Montgomery [facility] CRYPTOCOCCAL ANTIGEN 2020-01-19 15:04:00 AmericaKristofer theodore [facility] MUMPS ANTIBODY, IGG 2020-01-19 15:04:00 Kristofer Montgomery [facility] RUBELLA ANTIBODY, IGG 2020-01-19 15:04:00 AmericaKristofer theodore [facility] RUBEOLA ANTIBODY IGG 2020-01-19 15:04:00 Kristofer Montgomery [facility] VARICELLA ZOSTER ANTIBODY, 2020-01-19 15:04:00 Kristofer Montgomery [facility] PROTHROMBIN TIME/INR 2020-01-19 11:00:00 Roscoe Ahmadi [facility] US BREAST BILATERAL 2020-01-19 09:10:00 Kristofer Montgomery [facility] HEPATIC FUNCTION PANEL 2020-01-19 04:11:00 [facility] [place] CALCIUM, IONIZED 2020-01-19 04:11:00 [facility] COMPREHENSIVE METABOLIC 2020-01-19 04:11:00 Leland [facility] PHOSPHORUS 2020-01-19 04:11:00 Leland [facility] B-TYPE NATRIURETIC FACTOR 2020-01-19 04:11:00 Leland [facility] (BNP) [facility] Center ALDOSTERONE 2020-01-19 04:11:00 King [facility] RENIN, PLASMA 2020-01-19 04:11:00 King Rehan [facility] METANEPHRINES 2020-01-19 04:11:00 King Rehan [facility] MAGNESIUM 2020-01-19 04:11:00 [facility] CBC W/PLT COUNT & AUTO 2020-01-19 04:11:[facility] WITHOUT IV 2020-01-19 00:40:00 [facility] CONTRAST [facility] US RENAL COMPLETE 2020-01-19 00:20:00 [facility] PREPARE LEUKO-REDUCED 2020-01-18 23:54:00 Juana [facility] PLATELETS [facility] URINALYSIS W/ MICROSCOPIC 2020-01-18 20:49:00 Leland [facility] SODIUM, RANDOM URINE 2020-01-18 20:49:00 [facility] PROTEIN, RANDOM URINE 2020-01-18 20:49:00 [facility] CREATININE, RANDOM URINE 2020-01-18 20:49:00 [facility] EOSINOPHIL SMEAR, URINE 2020-01-18 20:49:00 [facility] TRANSFUSION SERVICE REPORT 2020-01-18 18:31:51 Provider, Bozena [facility] - - SCAN Scanning [facility] TRANSFUSE LEUKO-REDUCED RED 2020-01-18 13:21:26 Miguel Angel [facility] BLOOD CELLS [facility] NM MYOCARDIAL PERFUSION 2020-01-18 09:20:00 [facility] ([facility] & STRESS) Medical C enter TREADMILL 2020-01-18 08:57:35 Unknown, Hl7 [facility] TOLERANCE(NON-NUCLEAR Medical Ce nter TREADMILL) ECG 12-LEAD 2020-01-18 08:46:42 Unknown, Hl7 [facility] BASIC METABOLIC PANEL (7) 2020-01-18 06:10:00 Juana [facility] MAGNESIUM 2020-01-18 06:10:00 [facility] T SPOT TB 2020-01-18 06:10:00 Miguel Angel [facility] HEPATIC FUNCTION PANEL 2020-01-18 06:10:00 Roscoe Ahmadi [facility] CBC W/PLT COUNT & AUTO 2020-01-18 06:10:00 Juana [facility] (CELLAVISION MANUAL DIFF) 2020-01-18 06:10:00 Juana [facility] ECG 12-LEAD 2020-01-17 11:05:03 Brian Browning [facility] REPORT OF PROCEDURE - 2020-01-17 09:11:05 Doris [facility] ENDOSCOPY [facility] REPORT OF PROCEDURE - 2020-01-17 08:39:23 Doris [facility] TISSUE EXAM 2020-01-17 08:15:00 Doris [facility] TRANSFUSE LEUKO-REDUCED 2020-01-17 08:04:58 Juana [facility] PLATELETS [facility] UPPER ENDOSCOPY,BIOPSY 2020-01-17 07:55:00 Doris [facility] COLONOSCOPY 2020-01-17 07:55:00 George, [facility] PROTHROMBIN TIME/INR 2020-01-17 03:56:00 Mary Roper [facility] BASIC METABOLIC PANEL (7) 2020-01-17 03:56:00 Leena Arias [facility] MAGNESIUM 2020-01-17 03:56:00 [facility] CBC W/PLT COUNT & AUTO 2020-01-17 03:56:00 [facility] (CELLAVISION MANUAL DIFF) 2020-01-17 03:56:00 Ju[facility] TRANSFUSION SERVICE REPORT 2020-01-16 18:00:27 Bozena Lopes [facility] BLOOD CULTURE 2020-01-16 12:25:00 Shady Gonzáles [facility] LACTATE DEHYDROGENASE (LDH) 2020-01-16 12:24:00 [facility] RETICULOCYTE COUNT 2020-01-16 12:23:00 Iván [facility][note 3] BLOOD CULTURE 2020-01-16 11:25:00 Shady Gonzáles [facility] HIV-1 ANTIGEN WITH HIV-1/2 2020-01-16 11:25:00 Shady Gonzáles [facility] VITAMIN B12 AND FOLATE 2020-01-16 11:25:00 Iván [facility] HAPTOGLOBIN 2020-01-16 11:25:00 Iván [facility] US ABDOMINAL WITH DOPPLER 2020-01-16 06:30:00 [facility] PROT[facility]/INR 2020-01-16 03:38:00 [facility] HE[facility]EL 2020-01-16 03:38:00 [facility] BASIC METABOLIC PANEL (7) 2020-01-16 03:38:00 Leena Arias [facility] MAGNESIUM 2020-01-16 03:38:00 [facility] CBC W/PLT COUNT & AUTO 2020-01-16 03:38:[address] [facility] DIFFERENTIAL [facility] DRUG SCREEN, URINE, 2020-01-15 21:52:[address] [facility] TRANSPLANT [facility] BLOOD TYPING, AUTOMATED 2020-01-15 18:16:00 Shady Gonzáles [facility] CT CHEST WITHOUT IV 2020-01-15 17:54:[address] [facility] CONTRAST [facility] XR CHEST 2 VIEWS 2020-01-15 16:57:00 EliecerShady davidson [facility] XR MANDIBLE 4 VIEWS MIN 2020-01-15 16:39:00 Shady Gonzáles [facility] VITAMIN D, 25-HYDROXY 2020-01-15 16:17:00 EliecerShady davidson [facility] COMPREHENSIVE METABOLIC 2020-01-15 16:17:00 Shady Gonzáles [facility] BILIRUBIN, DIRECT 2020-01-15 16:17:00 EliecerShady morales [facility] CALCIUM, IONIZED 2020-01-15 16:17:00 EliecerShady davidson [facility] ZINC 2020-01-15 16:17:00 EliecerShady davidson [facility] ANTI-NUCLEAR ANTIBODY (REILLY) 2020-01-15 16:17:00 EliecerShady davidson [facility] ACTIN (SMOOTH MUSCLE) 2020-01-15 16:17:00 EliecerShady morales [facility] ANTIBODY, IGG [facility] MITOCHONDRIA M2 ANTIBODY 2020-01-15 16:17:00 EliecerShady morales [facility] (IGG) [facility] IRON, TIBC, % SAT. (WITHOUT 2020-01-15 16:17:00 EliecerShady morales [facility] FERRITIN) [facility] FERRITIN 2020-01-15 16:17:00 EliecerShady davidson [facility] TRANSFERRIN 2020-01-15 16:17:00 EliecerShady morales [facility] WOVKX-7-JFUZZDGQUCX\\, SERUM 2020-01-15 16:17:00 Shady Gonzáles [facility] CERULOPLASMIN 2020-01-15 16:17:00 Shady Gonzáles [facility] ALPHA FETOPROTEIN (AFP), 2020-01-15 16:17:00 Shady Gonzáles [facility] TUMOR MARKER [facility] CARCINOEMBRYONIC ANTIGEN 2020-01-15 16:17:00 Shady Gonzáles [facility] (CEA) [facility] CARBOHYDRATE ANTIGEN 19-9 2020-01-15 16:17:00 Shady Gonzáles [facility] (CA 19-9) [facility] HEMOGLOBIN A1C 2020-01-15 16:17:00 Shady Gonzáles [facility] TSH 2020-01-15 16:17:00 Shady Gonzáles [facility] T3 2020-01-15 16:17:00 Shady Gonzáles [facility] T4 2020-01-15 16:17:00 Shady Gonzáles [facility] ETHANOL 2020-01-15 16:17:00 Shady Gonzáles [facility] FIBRINOGEN 2020-01-15 16:17:00 Shady Gonzáles [facility] PROTHROMBIN TIME/INR 2020-01-15 16:17:00 Shady Gonzáles [facility] APTT 2020-01-15 16:17:00 Shady Gonzáles [facility] HEPATITIS A ANTIBODY, IGM 2020-01-15 16:17:00 Shady Gonzáles [facility] HEPATITIS B SURFACE ANTIGEN 2020-01-15 16:17:00 Shady Gonzáles [facility] HEPATITIS B SURFACE 2020-01-15 16:17:00 Shady Gonzáles [facility] HEPATITIS B CORE ANTIBODY, 2020-01-15 16:17:00 Shady Gonzáles [facility] TOTAL [facility] HEPATITIS B CORE ANTIBODY, 2020-01-15 16:17:00 Shady Gonzáles [facility] HEPATITIS C ANTIBODY 2020-01-15 16:17:00 Shady Gonzáles [facility] RPR 2020-01-15 16:17:00 Shady Gonzáles [facility] CYTOMEGALOVIRUS ANTIBODY, 2020-01-15 16:17:00 Shady Gonzáles [facility] IGG [facility] CYTOMEGALOVIRUS ANTIBODY, 2020-01-15 16:17:00 Shady Gonzáles [facility] IGM [facility] EBV ANTIBODY, IGM 2020-01-15 16:17:00 Shady Gonzáles [facility] TYPE AND SCREEN, AUTOMATED 2020-01-15 16:17:00 Shady Gonzáles [facility] 2D ECHO W/ DOPPLER 2020-01-15 14:45:25 Ren Hernandez [facility] (CW/PW/COLOR) [facility] CAROTID DOPPLER BILATERAL 2020-01-15 14:41:00 Shady Gonzáles [facility] SODIUM, RANDOM URINE 2020-01-15 12:46:00 [facility] CREATININE, RANDOM URINE 2020-01-15 12:46:00 Graciela Stone [facility] AMMONIA 2020-01-15 08:32:00 Graciela Stone [facility] HEPATITIS PANEL, ACUTE 2020-01-15 08:32:00 Graciela Stone [facility] BASIC METABOLIC PANEL (7) 2020-01-15 03:56:[address] [facility] PROTHROMBIN TIME/INR 2020-01-15 03:56:00 Graciela Stone [facility] HEPATIC FUNCTION PANEL 2020-01-15 03:56:00 Graciela Stone [facility] MAGNESIUM 2020-01-15 03:56:00 Graciela Stone [facility] URIC ACID 2020-01-15 03:56:00 [facility] GAM[facility] GLUTAMYL TRANSFERASE 2020-01-15 03:56:00 Shady Gonzáles [facility] (GGT) [facility] PHOSPHORUS 2020-01-15 03:56:00 Eliecer [facility] LIPID PANEL 2020-01-15 03:56:00 [facility] CBC W/PLT COUNT & AUTO 2020-01-15 03:56:00 Graciela Stone [facility] (CELLAVISION MANUAL DIFF) 2020-01-15 03:56:[address] [facility] BASIC METABOLIC PANEL (7) 2020-01-14 21:59:[address] [facility] PROTHROMBIN TIME/INR 2020-01-14 21:59:00 [facility] HEPATIC FUNCTION PANEL 2020-01-14 21:59:00 [facility] CBC W/PLT COUNT & AUTO 2020-01-14 21:59:00 Ramone [facility] SARS-COV2/RT-PCR ([facility] & 2020-01-14 19:28:00 Tameka Hunter I [facility] - REF LABS) [facility] BASIC METABOLIC PANEL (7) 2020-01-03 14:34:00 Kadie Larry [facility] HEPATIC FUNCTION PANEL 2020-01-03 14:34:00 Larry, [facility] PROTHROMBIN TIME/INR 2020-01-03 14:34:00 [facility] ALPHA FETOPROTEIN (AFP), 2020-01-03 14:34:00 Larry [facility] TUMOR MARKER [facility] CBC W/PLT COUNT & AUTO 2020-01-03 14:34:00 [facility] Plan of Care Planned Activity Planned Date Details Comments Source Future Scheduled 2030-01-[address] [facility] 00:[facility]00 malignant neoplasm of Medica l Center colon (procedure) [code = 341699234] Future Scheduled 2023-01-[address] [facility] 00:[facility]00 (procedure) [code = Medical Center 45770124] Future Scheduled 2020-03-28 INFLUENZA VACCINE (#1) [facility] [code = INFLUENZA Medical Ce nter VACCINE (#1)] Future Scheduled 2020-02-26 INFLUENZA VACCINE [place] [facility] 00:00:00 [code = INFLUENZA VACCINE] Future Scheduled 2019-07-28 Medicare IPPE (WELCOME [facility] Test 00:00:00 TO MEDICARE) [code = Medical Center Medicare IPPE (WELCOME TO MEDICARE)] Future Scheduled 2019 65+ PNEUMOCOCCAL [place] [facility] Test 00:00:00 VACCINE (1 of 1 - PPSV23) [code = 65+ PNEUMOCOCCAL VACCINE (1 of 1 - PPSV23)] Future Scheduled 2019 PNEUMOCOCCAL 65+ [facility] - Test 00:00:00 (1 of 1 - Medical Center [id number] PCV13) [code = PNEUMOCOCCAL 65+ YRS (1 of 1 - [id number] PCV13)] Future Scheduled 2004 BREAST CANCER [facility] Test 00:00:00 SCREENING [code = BREAST CANCER SCREENING] Future Scheduled 2004 COLONOSCOPY SCREENING [facility] Test 00:00:00 [code = COLONOSCOPY SCREENING] Future Scheduled 2004 SHINGLES VACCINES (#1) [place] [facility] Test 00:00:00 [code = SHINGLES VACCINES (#1)] Future Scheduled 1975 Screening for [facility] 00:00:00 malignant neoplasm of cervix (procedure) [code = 154063078] Future Scheduled [address] [facility] Test 00:00:00 malignant neoplasm of Medica l Center cervix (procedure) [code = 419242567] Future Scheduled [address] [facility] - Test 00:00:00 malignant neoplasm of Medica l Center breast (procedure) [code = 016578271] Encounters Start End Encounter Admission Attending Care Care Encounter Source Date/Time Date/Time Type Type Clinicians Facility Department ID 2020-05-02 2020-05-02 Outpatient [facility] [id number] [facility]00 k[facility] - [facility] Outpati ent Clinics 2020-04-19 2020-04-19 [facility] [id number] 2020-02-21 2020-02-21 [facility] [id number] 16[facility]00:00 16:00:00 [facility] Outpati ent Clinics 2020-02-14 2020-02-14 [facility] [id number] 10:00:00 10:00:00 [facility] Medicine Outpati ent Clinics 2020-02-03 2020-02-03 [facility] [id number] 11:48:00 11:48:00 [facility] Medicine Outpati ent Clinics 2020-01-13 2020-01-13 [facility] [id number] 14:40:00 14:40:00 [facility] Outpat[facility] Clinics 2020-01-03 2020-01-03 Transition [place] [id number] 00:00:00 00:00:00 of Care Aye Mcmulleny [id number] [place] [id number] 2019-12-28 2019-12-31 [facility] Yahir Borden [facility] [id number] 21:39:45 13:10:00 Encounter Jacklyn Lewis [id number] [place] [id number] Graham [id number] 2019-11-03 2019-11-03 [facility] [id number] 13:20:00 13:20:00 [facility] Medicine Outpati ent Clinics 2019-09-10 2019-09-10 Outpatient Rafia Moratayat [id number] 09:30:00 09:30:00 [facility] 2019-08-31 2019-08-31 Outpatient Rafia Moratayat [id number] 08:00:00 08:00:00 [facility] ent Clinics 2019-08-24 2019-08-24 Outpatient Rafia Moratayat [id number] 10:41:00 10:41:00 [facility] 2019-08-19 2019-08-19 Outpatient Rafia Moratayat [id number] 13:00:00 13:00:00 [facility] ent [facility] Results Test Description Test Time Test Comments Results Result Comments Source Comprehensive metabolic panel 2020-05-09 18:00:00 Test Item Value Reference Range Interpretation Comme nts Glucose (test code = 85 mg/dL 65-139 Non-fasting ) reference inter beatriz BUN (test code = 52 mg/dL 7-25 H 20101128) Creatinine (test code = 2.62 mg/dL 0.5-0.99 H For patients >49 years 20130920) of age, the ref erence limitfor Creati nine is approximately 1 3% higher for peopleident ified as -Marisela n. eGFR If NonAfricn Am 18 > OR = 60 L (test code = 3137800) mL/min/1.73m2 eGFR If Africn Am (test 21 > OR = 60 L code = 0806661) mL/min/1.73m2 BUN/Creatinine Ratio 20 6- 22 (calc) (test code = 4873973) Sodium (test code = 135 mmol/L 135-087 2255194) Potassium, Serum (test 4.5 mmol/L 3.5-5.3 code = 1561588) Chloride (test code = 105 mmol/L 98-440 4811335) Carbon Dioxide, Total 23 mmol/L 20-32 (test code = 1179767) Calcium, Serum (test 9.9 mg/dL 8.6-10.4 code = 3842163) Protein, Total, Serum 5.8 g/dL 6.1-8.1 L (test code = 20101202) Albumin (test code = 3.1 g/dL 3.6-5.1 L ) GLOBULIN (QUEST) (test 2.7 1.9- 3.7 g/dL code = 1087662) (calc) Albumin Globulin Ratio 1.1 1.0- 2.5 (calc) (test code = 1759-0) Bilirubin, Total (test 4.0 mg/dL 0.2-1.2 H code = 20101204) Alkaline Phosphatase, S 81 U/L 37-153 (test code = 6768-6) AST (SGOT) (test code = 26 U/L 10-35 20101208) ALT (SGPT) (test code = 11 U/L 01-23) VALENTE (test code = VALENTE) FASTING:NOFASTING: NO RAC (test code = RAC) Performing Organization Information: Site ID: [facility] Name: [facility] Address: [address] [place] [id number] Director: Alonso Carrasco Lab Interpretation Abnormal (test code = 78640-9) [facility] Center[facility]il[facility], [id number] 18:00:00 Test Item Value Reference Range Interpretation Comments Bilirubin, Total (test 4.0 mg/dL 0.2-1.2 H code = 20101204) Bilirubin, Direct (test 1.3 mg/dL < OR = 0.2 H code = 20101216) Bilirubin, Indirect 2.7 0.2- 1.2 mg/dL H (test code = 3030952) (calc) VALENTE (test code = VALENTE) FASTING:NOFASTING: NO RAC (test code = RAC) Performing Organization Information: Site ID: [facility] Name: [facility] Address: [address] [place] [phone] Director: Alonso Carrasco Lab Interpretation Abnormal (test code = 32592-5) [facility] with [facility] count + automated [id number] 18:00:00 Test Item Value Reference Interpretation Comments Range WBC (test code = 2.8 3.8- 10.8 L ) Thousand/uL RBC (test code = 2.40 3.80- 5.10 L 789-8) Million/uL Hemoglobin (test 8.9 g/dL 11.7-15.5 L code = ) Hematocrit (test 25.0 % 35-45 L code = ) MCV (test code = 104.2 fL 80-100 H ) MCH (test code = 37.1 pg 27-33 H ) MCHC (test code = 35.6 g/dL 32-36 ) RDW (test code = 13.1 % 11-15 Macrocytosi s 1 + ) Platelets (test 53 140- 400 L Review of th e peripheral code = ) Thousand/uL smear reveal sdecreased numbers of plat elets. MPV (test code = 11.0 fL 7.5-12.5 4676329) # Neutros (test 1680 1,500 - code = 6796735) 7,800 cells/uL # Lymphs (test 560 850- 3,900 L code = 731-0) cells/uL # Monos (test code 347 200- 950 = 6424490) cells/uL # Eos (test code = 193 15- 500 711-2) cells/uL # Baso (test code 20 0- 200 = 704-7) cells/uL % Neutros (test 60 % code = ) % Lymphs (test 20.0 % code = 2301573) % Monos (test code 12.4 % = ) % Eos (test code = 6.9 % 20200215) % Baso (test code 0.7 % = 5307042) Comment(s) (test The smear was manually code = 4341242) reviewed and the instrumentdiffe rential results have be en confirmed.The i nstrument differential marie s been reported. VALENTE (test code = FASTING:NOFASTI VALENTE) NG: NO RAC (test code = Performing RAC) Organization Information: Site ID: [facility] Name: [facility] Lab Address: [address] [place] [phone] Director: Alonso Carrasco Lab Interpretation Abnormal (test code = 42490-9) [facility] CenterProthrombin time/[id number] 18:00:00 Test Item Value Reference Range Interpretation Comments INR (test code = 1.1 Reference R von 9251750) 0.9-1.1Moderate - intensity Warfarin Therap y 2.0-3.0Higher-i n tensity Warfari n Therapy 3.0-4.0 PT (test code = 11.8 9.0- 11.5 sec H For additio nal ) information, please refer [email or web address] i on.Tactus Technologydiagnos e-Rewards/faq/FAQ 07 31(This link is being provided for informational/e d ucational purposes only.) VALENTE (test code = VALENTE) FASTING:NOFASTING: NO RAC (test code = RAC) Performing Organization Information: Site ID: [facility] Name: [facility] Lab Address: [address] [place] [address] Director: Alonso Carrasco Lab Interpretation Abnormal (test code = 74084-5) [facility] CenterPLATELET [id number] 18:02:00 Test Item Value Reference Range Interpretation Comments Platelet Estimate (test DECREASED ADEQUATE A code = 38493-9) VALENTE (test code = VALENTE) FASTING:NOFASTING: NO RAC (test code = RAC) Performing Organization Information: Site ID: [facility] Name: [facility] Address: [address] [place] [address] Director: Alonso Carrasco Lab Interpretation (test Abnormal code = 81445-2) [facility] CenterBILIRUBIN, [id number] 15:57:00 Test Item Value Reference Range Interpretation Comments BILIRUBIN DIRECT (BEAKER) (test 1.9 mg/dL 0.1-0.5 H code = 706) Telecom Coordinator ID - BSCOMPREHENSIVE METABOLIC [id number] 15:57:00 Test Item Value Reference Range Interpretation [...] S NOT APPLICABLE FOR DIALYSIS PATIEN TS. Telecom Coordinator ID - BSSpecimen moderately ictericAlpha fetoprotein (AFP), tumor marker 2020-04-11 15:41:00 Test Item Value Reference Range Interpretation Comments Alpha-Fetoprotein (test code <2.0 <10.0 ng/mL = 1834-1) VALENTE (test code = VALENTE) Telecom Coordinator ID - BS Lab Interpretation (test Normal code = 02004-5) [facility] CenterALPHA FETOPROTEIN (AFP), TUMOR [id number] 15:41:00 Test Item Value Reference Range Interpretation Comments ALPHA-FETOPROTEIN (BEAKER) (test code < ng/mL <10.0 = 1094) Telecom Coordinator ID - BSRAD, BONE DENSITY [id number] 13:34:00Referring: Dr. Rowdy Zhang for Exam:->liver transplant waiting listFINAL REPORT Bone density study, 04/11/2020 Clinical History: Screening Bone mineral density measurementLumbar spine0.866 gm/li9Xzknlvc neck0.714 gm/cm2 Standard deviation fromyoung adult population [...] Brooks Verified Date/Time: 04/11/2020 13:34:32 Reading Location: [address] Mammo Reading Room XR dxa bone density [id number] 13:34:00 Interface, External Ris In - 04/11/2020 1:36 PM CDTFINAL REPORT Bone densitystudy, 04/11/2020 Clinical History: Screening Bone mineral density measurementLumbar spine0.866 gm/oe6Tzisfqr neck0.714 gm/cm2 Standard deviation from young adult [...] Brooks Verified Date/Time: 04/11/2020 13:34:32 Reading Location: [address] Reading Room [facility] CenterPROTHROMBIN TIME/[id number] 13:02:00 Test Item Value Reference Range Interpretation [...] heart valves.CBC with platelet count + automated [id number] 12:52:00 Test Item Value Reference Range Interpretation [...] K/CU MM L MPV (test code = 79149-6) 10.4 fL 9.4-12.3 nRBC (test code = [...] 2801) Lab Interpretation (test code = Abnormal 66442-0) [facility] W/PLT COUNT & AUTO [id number] 12:52:00 Test Item Value Reference Range Interpretation [...] (BEAKER) (test code = 2801) MISCELLANEOUS LAB [id number] 12:14:00 Test Item Value Reference Range Interpretation Comments SCAN RESULT (test code = 1068662) Miscellaneous lab [id number] 12:14:00Scan ResultQUEST NON-INTERFACED [facility]CH[facility]2020-[facility]21 13:17:00 Test Item Value Reference Range Interpretation Comments Magnesium (test code = 1.8 mg/dL 1.6-2.6 84207-8) VALENTE (test code = VALENTE) Telecom Coordinator ID - LM Lab Interpretation (test Normal code = 51121-5) [facility]2020-07-21 13:17:00 Test Item Value Reference Range Interpretation Comments MAGNESIUM (BEAKER) (test code = 1.8 mg/dL 1.6-2.6 627) Telecom Coordinator ID - LMCOMPREHENSIVE METABOLIC [id number] 13:17:00 Test Item Value Reference Range Interpretation [...] S NOT APPLICABLE FOR DIALYSIS PATIEN TS. Telecom Coordinator ID - LMSpecimen moderately ictericBILIRUBIN, [id number] 13:17:00 Test Item Value Reference Range Interpretation Comments BILIRUBIN DIRECT (BEAKER) (test 2.5 mg/dL 0.1-0.5 H code = 706) Telecom Coordinator ID - LMPROTHROMBIN TIME/[id number] 13:05:00 Test Item Value Reference Range Interpretation [...] mechanical heart valves.CBC W/PLT COUNT & AUTO [id number] 12:59:00 Test Item Value Reference Range Interpretation [...] 0-1 PERCENT (BEAKER) (test code = 2801) [id number] 10:36:00 Test Item Value Reference Interpretation Comments Range Metanephrine (test 46 pg/mL < OR = 57 This mushtaq t was developed code = 9327110) and its anal ytical performance characteristics havebeen determined by [facility].It h as not been cleared or appr jean-claude by FDA. This assay has been validatedpursua nt to the CLIA regulation s and is used for clinic al purposes. Normetanephrine 213 pg/mL < OR = 148 H This test w as developed (test code = and its analyti steven 0567828) performance characteristics havebeen determined by [facility].It h as not been cleared or appr jean-claude by FDA. This assay has been validatedpursua nt to the CLIA regulation s and is used for clinic al purposes. Total Metanephrine 259 pg/mL < OR = 205 H Elevatio ns > 4-fold upper (test code = reference range : strongly 3675076) suggestive of apheochromocyto ma(1). Elevations >1 - 4-fold upper reference range:significa nt but not diagnostic, may be due to medications or stress. Suggestrunning 24 hr urine fractionated me tanephrines and serum Chrom ogranin A forconfirmation . Reference: (1) Latrice Lorenz et al, Plasma Regional Education Coordinator mogranin A or Urine FractionatedMet anephrines Follow-Up Testi ng Improves the Diagnostic Accuracy of PlasmaFractiona madai Metanephrines f or Pheochromocytom a. The Journal of ClinicalEndocri nology and Metabolism 93 ( 1),91-95, 2008. For addit ional information, pl ease refer tohttp://educat ion.Busuu.Exepron/f aq/MetFract Free(This link is being provided for informational/e ducational purposes only.) This test was developed a nd its analytical perf ormance characteristics havebeen determined by [facility].It h as not been cleared or appr jean-claude by FDA. This assay has been validatedpursua nt to the CLIA regulation s and is used for clinic al purposes. VALENTE (test code = Performing Lab VALENTE) EZ [employer] [facility] [address] [place] [address] I Shashank ADRIAN, PhD, AMINA Lab Interpretation Abnormal (test code = 08809-6) [facility] CenterCatecholamines, Fractionated, 24hr [id number] 11:55:00 Test Item Value Reference Interpretation Comments Range TOTAL VOLUME (test 1000 mL code = 0982773) Epinephrine,24 Hr <2 2- 24 mcg/24 h L Result b elow clinical Ur (test code = reportable r von for ) this analyte, w hich is 2 mcg/L.Repo rted result was calc ulated using 2 mcg/L. This test was develo ped and its analyti steven performance characteristics havebeen determ ined by [employer] [facility] .It has not been cl eared or approved by FDA. This assay has been validatedpursua nt to the CLIA regula tions and is used for clinical purpos es. Norepinephrine 9 15- 100 mcg/24 L This test was (test code = h developed and i ts ) analytical performance characteristics havebeen determ ined by [facility] .It has not been cl eared or approved by FDA. This assay has been validatedpursua nt to the CLIA regula tions and is used for clinical purpos es. Calculated Total 9 26- 121 mcg/24 L This mushtaq t was E+Ne (test code = h developed and its 20190907) analytical performance characteristics havebeen determ ined by [facility] .It has not been cl [...] characteristics havebeen determ ined by [facility] .It has not been cl eared or approved by FDA. This assay has been validatedpursua nt to the [facility]ula [facility] and is used for clinical purpos es. Creatinine,24 Hr 0.88 0.50- 2.15 Urin (test code = g/24 h ) VALENTE (test code = Performing Lab VALENTE) [employer] [facility] [address] [place] [address] Mark Encarnacion MD, PhD, AMINA Lab Interpretation Abnormal (test code = 04292-5) [facility] CenterMISCELLANEOUS LAB [id number] 12:33:00 Test Item Value Reference Range Interpretation Comments SCAN RESULT (test code = 4902916) TAFRE-2-MFPSKTZUVKI [id number] 16:28:00 Test Item Value Reference Range Interpretation Comments Lab Interpretation (test code = Normal 84282-1) [facility] CenterMetanephrines, 24 hour [id number] 12:57:00 Test Item Value Reference Interpretation Comments Range TOTAL VOLUME (test 1000 mL code = 2930589) Metanephrine (test 205 90- 315 This mushtaq t was code = 2180539) mcg/24 h developed an d its analytical perf ormance characteristics havebeen determ ined by [facility] .It has not been cleare d or approved by FDA . This assay has been validatedpursua nt to the CLIA regula tions and is used for clinical purpos es. Normetanephrine 657 122- 676 This test w as (test code = mcg/24 h developed and i ts 7609565) analytical perf ormance characteristics havebeen determ ined by [employer] [facility] .It has not been cleare d or approved by FDA . This assay has been validatedpursua nt to the CLIA regula ticarondelet health and is used for [...] perf ormance characteristics havebeen determ ined by [employer] [facility] .It has not been cleare d or approved by FDA . This assay has been validatedpursua nt to the CLIA regula tions and is used for clinical purpos es. VALENTE (test code = Performing Lab VALENTE) EZ [employer] [facility] [address] [place] [address] Mark Encarnacion MD, PhD, AMINA Lab Interpretation Abnormal (test code = 70382-1) [facility] CenterCalcium, [id number] 05:42:00 Test Item Value Reference Range Interpretation Comments Calcium, Ion (test code = 1993-) 1.11 mmol/L 1.12-1.27 L pH, Blood (test code = 40360-3) 7.41 Lab Interpretation (test code = Abnormal 84942-0) [facility] CenterCALCIUM, [id number] 05:42:00 Test Item Value Reference Range Interpretation Comments CALCIUM IONIZED (BEAKER) (test 1.11 mmol/L 1.12-1.27 L code = 698) PH, BLOOD (BEAKER) (test code = 7.41 1810) COMPREHENSIVE METABOLIC [id number] 04:57:00 Test Item Value Reference Range Interpretation [...] S NOT APPLICABLE FOR DIALYSIS PATIEN TS. Telecom Coordinator ID - BSSpecimen moderately ictericHepatic function [id number] 04:53:00 Test Item Value Reference Range Interpretation Comments Protein, Total (test code 5.7 6.0- 8.3 gm/dL L = 2885-2) Albumin (test code = 3.4 g/dL 3.5-5 L 73538-2) Total Bilirubin (test 6.9 mg/dL 0.2-1.2 H code = 1974-2) Bilirubin, Direct (test 2.2 mg/dL 0.1-0.5 H code = 1967-7) Alkaline Phosphatase 58 U/L 40-150 (test code = 6768-6) AST (test code = 1920-8) 36 U/L 5-34 H ALT (test code = 1742-6) 13 U/L 6-55 VALENTE (test code = VALENTE) Telecom Coordinator ID - BSSpecimen moderately icteric Lab Interpretation (test Abnormal code = 99647-4) [facility] CenterPhosphorus2020-07-01 04:53:00 Test Item Value Reference Range Interpretation Comments Phosphorus (test code = 3.2 mg/dL 2.3-4.7 2777-1) VALENTE (test code = VALENTE) Telecom Coordinator ID - BS Lab Interpretation (test Normal code = 92508-4) [facility] CenterPHOSPHORUS2020-07-01 04:53:00 Test Item Value Reference Range Interpretation Comments PHOSPHORUS (BEAKER) (test code = 3.2 mg/dL 2.3-4.7 604) Telecom Coordinator ID - LFFDLIAWQWU8646-11-19 04:53:00 Test Item Value Reference Range Interpretation Comments MAGNESIUM (BEAKER) (test code = 1.7 mg/dL 1.6-2.6 627) Telecom Coordinator ID - BSHEPATIC FUNCTION [id number] 04:53:00 Test Item Value Reference Range Interpretation [...] (test code = 13 U/L 6-55 347) Telecom Coordinator ID - BSSpecimen moderately ictericCBC W/PLT COUNT & AUTO [id number] 04:42:00 Test Item Value Reference Range Interpretation [...] PERCENT (BEAKER) (test code = 2801) PROTHROMBIN TIME/[id number] 04:36:00 Test Item Value Reference Range Interpretation [...] (test No organisms seen code = 1123) [facility] CenterBODY FLUID CULTURE + GRAM [id number] 12:05:00 Test Item Value Reference Range Interpretation Comments CULTURE (BEAKER) (test No growth code = 1095) GRAM STAIN RESULT <1+ White blood cells (BEAKER) (test code = seen 1123) GRAM STAIN RESULT No organisms seen (BEAKER) (test code = 82579) Manual Zciffaxmzdti6524-52-67 07:35:00 Test Item Value Reference Range Interpretation [...] = 3438) VALENTE (test code = VALENTE) Telecom Coordinator ID - [id number] ID - Maria Del Carmen Quintana comments: Slide comments: Lab Interpretation (test Abnormal code = 42014-9) [facility] W/PLT COUNT & AUTO [id number] 07:35:00 Test Item Value Reference Range Interpretation [...] CONCENTRATION Decreased (CELLAVISION)(BEAKER) (test code = 3438) Telecom Coordinator ID - [id number] ID - Maria Del Carmen Davidsonewst comments: Slide comments:Basic Metabolic [id number] 06:24:00 Test Item Value Reference Range Interpretation Comments Sodium (test code = 140 meq/L 168-503 0090-2) Potassium (test code 3.4 meq/L 3.5-5.1 L = 2823-3) Chloride (test code = 105 meq/L 98-107 5-0) CO2 (test code = 25 meq/L -29 2027-9) BUN (test code = 31 mg/dL 7-21 H 3094-0) Creatinine (test code 2.35 mg/dL 0.57-1.25 H = 2160-0) Glucose (test code = 108 mg/dL 70-105 H 2345-7) Calcium (test code = 8.7 mg/dL 8.4-10.2 84376-1) EGFR (test code = 21 mL/min/1.73 [place] [address]-7) NOT ACCURATE CREATININE CLEARANCE IN PREDICTING GLOMERULAR FILTRATION RATE . ESTIMATED GFR I S NOT APPLICABLE FOR DIALYSIS PATIENTS. VALENTE (test code = VALENTE) Telecom Coordinator ID - MITCH Jane moderately icteric Lab Interpretation Abnormal (test code = 90126-1) [facility] METABOLIC [id number] 06:24:00 Test Item Value Reference Range Interpretation [...] S NOT APPLICABLE FOR DIALYSIS PATIEN TS. Telecom Coordinator ID - PIAYA LSpecimen moderately ictericHEPATIC FUNCTION [id number] 06:23:00 Test Item Value Reference Range Interpretation [...] (test code = 13 U/L 6-55 347) Telecom Coordinator ID - MITCH LSpecimen moderately ydmltfqAMJIDMBPG4637-86-10 06:22:00 Test Item Value Reference Range Interpretation Comments MAGNESIUM (BEAKER) (test code = 1.8 mg/dL 1.6-2.6 627) Telecom Coordinator ID Mercedes MEYER LPROTHROMBIN TIME/[id number] 04:22:00 Test Item Value Reference Range Interpretation [...] = No growth in 5 days 6463-4) [facility] CenterBLOOD [id number] 23:00:00 Test Item Value Reference Range Interpretation Comments CULTURE (BEAKER) (test No growth in 5 days code = 1095) BLOOD [id number] 23:00:00 Test Item Value Reference Range Interpretation Comments CULTURE (BEAKER) (test No growth in 5 days code = 1095) DLCO (single breath diffusion)2020-01-24 10:41:00Epifanio Giles, AUTOMATION SALES MANAGER, TECHNICAL TRAINING SPECIALIST 01/24/2020 10:52 [facility] PFT CHARTING REPORT Infection Control/Hand Hygiene procedures followed throughout the encounter with patient: YesPatient Identification Method: Patient name verified on armband, and Medical record on armband, Is the order complete?: Yes Account ID#: [id number] Name: Cici Calderon Birthdate: 1955 Age: 64 [...] and patient released from the lab without adverseoutcome.[facility] CenterPulmonary Funct Lab Vlteptcwuv1710-65-25 10:41:00Epifanio Giles, AUTOMATION SALES MANAGER, TECHNICAL TRAINING SPECIALIST 01/24/2020 10:52 [facility] PFT CHARTING REPORT Infection Control/Hand Hygiene procedures followed throughout the encounter with patient: YesPatient Identification Method: Patient name verified on armband, and Medical record on armband, Is the order complete?: Yes Account ID#: [id number] Name: Cici Calderon Birthdate: 1955 Age: 64 [...] and patient released from the lab without adverseoutcome.[facility] CenterLung [id number] 10:41:00Epifanio Giles, AUTOMATION SALES MANAGER, TECHNICAL TRAINING SPECIALIST 01/24/2020 10:52 [facility] PFT CHARTING REPORT Infection Control/Hand Hyg iene procedures followed throughout the encounter with patient: YesPatient Identification Method: Patient name verified on armband, and Medical record on armband, Is the order complete?: Yes Account ID#: [id number] Name: Cici Calderon Birthdate: 1955 Age: 64 [...] and patient released from the lab without adverseoutcome.[facility]6 MINUTE WALK(FOR LUNG TRANSPLANT ONLY)2020-01-24 10:20:00Janina Meehan, AUTOMATION SALES MANAGER, TECHNICAL TRAINING SPECIALIST 01/24/2020 2:39 [facility] PFT CHARTING REPORT Infection Control/Hand Hygiene procedures followed throughout the encounter with patient: YesPatient Identification Method: Patient name verified on armband, and Medical record on armband, Is the order complete?: Account ID#: [id number] Name: Cici Calderon Birthdate: 1 09/08/1954 Age: [...] patient released from the lab without adverse outcome.[facility] CenterU/S, [id number] 09:43:00 Referring: Dr. Rowdy Christie to be ordered:->Body Fluid Culture (w/Gram Stain, C\\T\\S)Labs marko ordered:->Cell CountReason for exam:->Acute Kidney Injury - rule out SBP - can remove volume of up to 4-5 L (given ANDERS)Should this be performed at the bedside?->YesFINAL REPORT Ultrasound guided paracentesis Clinical History: Ascites. Sedation: None. Elevator Mechanic Apprentice: Christine Ward PA-C Supervising Physician: Natan Chisholm MD Tool Trouble Shooter: None. Estimated Blood Loss: < 1 mL. [...] anesthesia was achieved with lidocaine, a 5 Serbian one-step catheter was advanced into theperitoneal cavity under ultrasound guidance. After completion of drainage, the catheter was removed.There was no evidence of complication. Impression:Successful ultrasound guided paracentesis. Signed:Natan Chisholm Verified Date/Time: 01/24/2020 09:43:05 Reading Location: [facility] P006J Ultrasound Reading Room US [id number] 09:43:00Interface, External Ris In - 01/24/2020 9:45 AM CDTFINAL REPORT Ultrasound guided paracentesis Clinical History: Ascites. Sedation: None. Elevator Mechanic Apprentice: Christine Ward PA-C Supervising Physician: Natan Chisholm MD Tool Trouble Shooter: None. Estimated Blood Loss: < 1 mL. [...] anesthesia was achieved with lidocaine, a 5 Serbian one-step catheter was advanced into the peritoneal cavity under ultrasound guidance. After completion of drainage, the catheter was removed. There was no evidence of complication. Impression:Successful ultrasound guided paracentesis. Signed: Natan Chisholm MDReport Verified Date/Time: 12/27 09:43:05 Reading Location: [address] Ultrasound Reading Room [facility] HospitalBASI METABOLIC [id number] 06:18:00 Test Item Value Reference Range Interpretation Comments SODIUM (BEAKER) 139 meq/L 136-145 (test code = 381) POTASSIUM (BEAKER) 3.4 meq/L 3.5-5.1 L (test code = 379) CHLORIDE (BEAKER) 106 meq/L 98-107 (test code = 382) CO2 (BEAKER) (test 25 meq/L -29 code = 355) BLOOD UREA NITROGEN 35 [...] S NOT APPLICABLE FOR DIALYSIS PATIEN TS. Telecom Coordinator ID Mercedes RUTHERFORDpecimen moderately [id number] 05:38:00 Test Item Value Reference Range Interpretation Comments PHOSPHORUS (BEAKER) (test code = 2.8 mg/dL 2.3-4.7 604) Telecom Coordinator ID - MITCH [id number] 05:38:00 Test Item Value Reference Range Interpretation Comments MAGNESIUM (BEAKER) (test code = 1.8 mg/dL 1.6-2.6 627) Telecom Coordinator ID Mercedes MEYER LHEPATIC FUNCTION [id number] 05:38:00 Test Item Value Reference Range Interpretation [...] (test code = 11 U/L 6-55 347) Telecom Coordinator ID Mercedes RUTHERFORDpecimen moderately ictericCALCIUM, [id number] 04:56:00 Test Item Value Reference Range Interpretation Comments CALCIUM IONIZED (BEAKER) (test 1.09 mmol/L 1.12-1.27 L code = 698) PH, BLOOD (BEAKER) (test code = 7.43 1810) PROTHROMBIN TIME/[id number] 04:48:00 Test Item Value Reference Range Interpretation [...] mechanical heart valves.CBC W/PLT COUNT & AUTO [id number] 04:36:00 Test Item Value Reference Range Interpretation [...] (BEAKER) (test code = 2801) Prepare Leuko-Red [id number] 23:54:00 Test Item Value Reference Range Interpretation Comments CROSSMATCH (test code = 2264) COMPATIBLE Unit ABO (test code = A Pos 9408671) UNIT NUMBER (test code = [id number] 934-0) Status (test code = 9720858) TX_TIMEINCHART Blood Bank Product (test code RED BLOOD CELLS = 2263) PRODUCT CODE (test code = P6745H25 933-2) [facility] CenterRubeola antibody [id number] 18:06:00 Test Item Value Reference Range Interpretation Comments Rubeola Ab, 235 AU/mL REFERENCE RANGE : Igg (test code <13.50 AU/mL = 11765-7) AU/mL Interpretation ==== <13.50 Negative 13.50-16.49 Equivocal >16.49 Positive A posi tive result indicate s that the patient hasantibody to measles virus. It does notdifferentiat e between an acti ve or past infection. The clinical diagno sis must be interpr eted inconjunction w ith clinical signs and symptoms ofthe patient. For additional information, pl ease refer tohttp://educat ion.[facility] stDiagnostics.c om/faq/ URB693(This rosa k is being provided for informational/e ducatio nal purposes on ly.) VALENTE (test code Performing Lab = VALENTE) *[employer] [facility] [address] [place] [address] Sudhakar Hargrove MD [facility] CenterMitochondria M2 Antibody (IgG)2020-01-23 13:50:00 Test Item Value Reference Range Interpretation Comments Mitochondria M2 Ab <20.0 See Note: U Reference (test code = Range:NEGATIVE: ) < OR = 20.0EQUIVOCAL: 20.1-24.9POSITI V E: > OR = 25.0 VALENTE (test code = Performing Lab VALENTE) EZ [employer] [address] [address] I Shashank ADRIAN, PhD, AMINA [facility] CenterMumps antibody, [id number] 13:38:00 Test Item Value Reference Range Interpretation [...] (test Performing Lab code = VALENTE) *[employer] [facility] [address] [place] [address] Sudhakar Hargrove MD [facility] CenterCBC W/PLT COUNT & AUTO [id number] 12:26:00 Test Item Value Reference Range Interpretation [...] CONCENTRATION Decreased (CELLAVISION)(BEAKER) (test code = 3438) Telecom Coordinator ID - [id number] ID - Charo Nikki comments: Slide comments: BASIC METABOLIC [id number] 07:18:00 Test Item Value Reference Range Interpretation [...] S NOT APPLICABLE FOR DIALYSIS PATIEN TS. Telecom Coordinator ID - MITCH LSpecimen moderately [id number] 07:17:00 Test Item Value Reference Range Interpretation Comments MAGNESIUM (BEAKER) 1.6 mg/dL 1.6-2.6 Specimen slightly (test code = 627) hemolyzed Telecom Coordinator ID - MITCH [id number] 07:17:00 Test Item Value Reference Range Interpretation Comments PHOSPHORUS (BEAKER) 2.4 mg/dL 2.3-4.7 Specimen slightly (test code = 604) hemolyzed Telecom Coordinator ID - MITCH LHEPATIC FUNCTION [id number] 07:17:00 Test Item Value Reference Range Interpretation [...] Specimen slightly (test code = 347) hemolyzed Telecom Coordinator ID - MITCH LSpecimen moderately ictericB-type Natriuretic Factor (BNP) 2020-01-23 06:55:00 Test Item Value Reference Range Interpretation Comments BNP (test code = 80242-5) 2179 pg/mL 0-100 H VALENTE (test code = VALENTE) Telecom Coordinator ID - MITCH L Lab Interpretation (test Abnormal code = 35299-4) [facility] CenterB-TYPE NATRIURETIC FACTOR (BNP)2020-01-23 06:55:00 Test Item Value Reference Range Interpretation Comments B-TYPE NATRIURETIC PEPTIDE 2179 pg/mL 0-100 H (BEAKER) (test code = 700) Telecom Coordinator ID - MITCH MOSERLCIUM, [id number] 06:31:00 Test Item Value Reference Range Interpretation Comments CALCIUM IONIZED (BEAKER) (test 1.07 mmol/L 1.12-1.27 L code = 698) PH, BLOOD (BEAKER) (test code = 7.45 1810) PROTHROMBIN TIME/[id number] 06:00:00 Test Item Value Reference Range Interpretation [...] for patients wiht mechanical heart valves.Prepare Leuko-Red [id number] 23:54:00 Test Item Value Reference Range Interpretation Comments Unit ABO (test code = 4296578) O Pos UNIT NUMBER (test code = [id number] 934-0) Status (test code = 5809243) TX_TIMEINCHART Blood Bank Product (test code PLATELETS = 2263) PRODUCT CODE (test code = E7841Q17 933-2) [facility] W/PLT COUNT & AUTO [id number] 10:35:00 Test Item Value Reference Range Interpretation [...] CONCENTRATION Decreased (CELLAVISION)(BEAKER) (test code = 3438) Telecom Coordinator ID - [id number] ID - Lizett OverholtUser comments: Slide comments: [id number] 10:05:00 Test Item Value Reference Range Interpretation Comments Cortisol, Total (test code 1.6 ug/dL 3.7-19.4 L = 2755) VALENTE (test code = VALENTE) Telecom Coordinator ID - MIKEAYA L Lab Interpretation (test Abnormal code = 92189-1) [facility] CenterCORTISOL2020-06-27 10:05:00 Test Item Value Reference Range Interpretation Comments CORTISOL, TOTAL (BEAKER) (test code 1.6 ug/dL 3.7-19.4 L = 2755) Telecom Coordinator ID - MIKEAYA LDirect AHG (KRISTI)/Direct [id number] 07:49:00 Test Item Value Reference Range Interpretation Comments Direct AHG-IGG (test code = 1006-6) NEGATIVE Direct AHG-C3B, C3D (test code = NEGATVIE 1003-3) [facility] CenterABORH, [id number] 07:37:00 Test Item Value Reference Range Interpretation Comments ABO Grouping (test code = 2588) A Rh Factor (test code = 2589) POS [facility] CenterCALCIUM, [id number] 06:31:00 Test Item Value Reference Range Interpretation Comments CALCIUM IONIZED (BEAKER) (test 1.10 mmol/L 1.12-1.27 L code = 698) PH, BLOOD (BEAKER) (test code = 7.44 1810) BASIC METABOLIC [id number] 06:20:00 Test Item Value Reference Range Interpretation [...] S NOT APPLICABLE FOR DIALYSIS PATIEN TS. Telecom Coordinator MABLE RUTHERFORDpecimen moderately tbrfzgxBXJHQQJQF0430-93-65 06:12:00 Test Item Value Reference Range Interpretation Comments MAGNESIUM (BEAKER) (test code = 1.7 mg/dL 1.6-2.6 627) Telecom Coordinator MABLE MEYER LHEPATIC FUNCTION [id number] 06:12:00 Test Item Value Reference Range Interpretation [...] (test code = 10 U/L 6-55 347) Telecom Coordinator MABLE Goetzimeyahaira moderately ictericPROTHROMBIN TIME/[id number] 05:48:00 Test Item Value Reference Range Interpretation [...] is2.5-3.5 for patients wiht mechanical heart valves.Renin, [id number] 22:50:00 Test Item Value Reference Range Interpretation Comments PRA,LC/MS/MS 1.51 ng/mL/h 0.25-5.82 This test was developed (test code = and its analyti steven 4324193) performance characteristics havebeen determined by [employer] [facility].It h as not been cleared or approved by FDA. This as say has been validatedp ursuant to the CLIA reg ulations and is used for clinical purposes. VALENTE (test Performing Lab code = VALENTE) EZ [facility] [address] [place] [address] Mark Encarnacion MD, PhD, AMINA [facility] CenterBody fluid cell count with uohehdporwpt4230-42-74 18:33:00 Test Item Value Reference Range Interpretation Comments Appearance (test code = 9335-1) Hazy Clear A Color (test code = 6824-7) Cele Colorless, Straw A RBCs (test code = 16828-6) 4000 <=1 /cu mm H Adjusted WBC Count (test code = 86 <=5 /cu mm H 23824-1) Lining Cells (test code = 1 <=1 /cu mm 86963-9) % Segs (test code = 40250-3) 7 % % Lymphs (test code = 48910-9) 83 % % Monos (test code = 12279-7) 10 % % Eos (test code = 09372-4) 0 % % Baso (test code = 67667-2) 0 % Container Body Fluid (test code Sterile Vial = 2873) Lab Interpretation (test code = Abnormal 53313-4) [facility] CenterBODY FLUID CELL COUNT WITH [id number] 18:33:00 Test Item Value Reference Range Interpretation [...] = 2873) Peripheral Blood Smear - Hold [id number] 15:19:00 Test Item Value Reference Range Interpretation Comments Peripheral Smear Save (test code = saved 1815) [facility] CenterPERIPHERAL BLOOD SMEAR - HOLD [id number] 15:19:00 Test Item Value Reference Range Interpretation Comments PERIPHERAL SMEAR SAVE (BEAKER) (test saved code = 1815) [id number] 14:41:00 Test Item Value Reference Interpretation Comments Range Aldosterone (test 22 ng/dL Adult Ref erence code = 5325899) Ranges for Aldosterone: Upright 8:00-10 :00 am < or = 28 ng/ dL Upright 4:00-6: 00 pm < or = 21 ng/ dL Supine 8:00-10 :00 am 3-16 ng/dL Th is test was developed a nd its analytical perf ormance characteristics havebeen determ ined by [facility] [place] .It has not been cleare d or approved by FDA . This assay has been validatedpursua nt to the CLIA regula tions and is used for clinical purpos es. VALENTE (test code = Performing Lab VALENTE) EZ [facility] [address] [place] [address] Mark Encarnacion MD, PhD, AMINA [facility] CenterT Spot [id number] 13:05:00 Test Item Value Reference Range Interpretation Comments T-Spot TB (test code = 08060-1) Negative Neg Ctrl Spot Count (test code = 0 32388-4) Panel A Spot (test code = 77463-9) 0 Panel B Spot (test code = 79568-3) [address] (test code = 0 49597-1) Scan Result (test code = 2475630) [facility] SPOT [id number] 13:05:00 Test Item Value Reference Range Interpretation Comments T-SPOT TB (BEAKER) (test code = Negative 1683) NEG CONTROL SPOT COUNT (BEAKER) 0 (test code = 1684) PANEL A SPOT (BEAKER) (test code = 0 1685) PANEL B SPOT (BEAKER) (test code = 0 1686) POS CONTROL SPOT CT (BEAKER) (test 0 code = 1687) SCAN RESULT (test code = 2531937) BLOOD [id number] 13:00:00 Test Item Value Reference Range Interpretation Comments CULTURE (BEAKER) (test No growth in 5 days code = 1095) BLOOD [id number] 12:00:00 Test Item Value Reference Range Interpretation Comments CULTURE (BEAKER) (test No growth in 5 days code = 1095) [id number] 10:25:00 Test Item Value Reference Range Interpretation Comments CORTISOL, TOTAL (BEAKER) (test code 5.1 ug/dL 3.7-19.4 = 2755) Telecom Coordinator ID - TUAN CCOMPREHENSIVE METABOLIC [id number] 10:23:00 Test Item Value Reference Range Interpretation [...] S NOT APPLICABLE FOR DIALYSIS PATIEN TS. Telecom Coordinator ID - TUAN CSpecimen moderately ictericVaricella zoster antibody, IgG 2020-01-21 10:15:00 Test Item Value Reference Range Interpretation Comments Varicella IgG (test 3.6 code = 01722-7) VALENTE (test code = VALENTE) VARICELLA ZOSTER RESULT INTERPRETATIONS: <=0.8 Al Nonreactive: Presumed non-immune to VZV 0.9-1.0 Al Equivocal >=1.1 Al Reactive: Presumed immune to VZV [facility] CenterRubella antibody, [id number] 10:15:00 Test Item Value Reference Range Interpretation Comments Rubella IgG Quant (test 127.0 <8.0 IU/mL H code = 8014-3) VALENTE (test code = VALENTE) Rubella IgG Result Interpretation: </= 7.0 IU/mL Negative - Presumed non-immune 8.0 - 9.9 IU/mL Equivocal >= 10.0 IU/mL Positive - Presumed immune Lab Interpretation (test Abnormal code = 44744-7) [facility] CenterRUBELLA ANTIBODY, [id number] 10:15:00 Test Item Value Reference Range Interpretation Comments RUBELLA IGG QUANTITATION (BEAKER) 127.0 IU/mL <8.0 H (test code = 572) Rubella IgG Result Interpretation: </= 7.0 IU/mL Negative - Presumed non- immune 8.0 - 9.9 IU/mL Equivocal >= 10.0 IU/mL Positive - Presumed immune VARICELLA ZOSTER ANTIBODY, [id number] 10:15:00 Test Item Value Reference Range Interpretation Comments VARICELLA ZOSTER IGG (AL) (BEAKER) 3.6 (test code = 3197) VARICELLA ZOSTER RESULT INTERPRETATIONS: <=0.8 Al Nonreactive: Presumed non-immune to VZV 0.9-1.0 Al Equivocal >=1.1 Al Reactive: Presumed immune to VZVReticulocyte [id number] 10:12:00 Test Item Value Reference Range Interpretation Comments % Retic (test code = 5.3 % 0.5-1.7 H 18046-1) VALENTE (test code = VALENTE) Telecom Coordinator ID - [id number] Lab Interpretation (test Abnormal code = 73563-3) [facility] CenterRETICULOCYTE [id number] 10:12:00 Test Item Value Reference Range Interpretation Comments RETICULOCYTE COUNT PCT (BEAKER) (test 5.3 % 0.5-1.7 H code = 575) Telecom Coordinator ID - [id number] 10:06:00 Test Item Value Reference Range Interpretation Comments PHOSPHORUS (BEAKER) (test code = 3.1 mg/dL 2.3-4.7 604) Telecom Coordinator ID - TUAN [id number] 10:06:00 Test Item Value Reference Range Interpretation Comments MAGNESIUM (BEAKER) (test code = 1.7 mg/dL 1.6-2.6 627) Telecom Coordinator ID - TUAN CHEPATIC FUNCTION [id number] 10:06:00 Test Item Value Reference Range Interpretation [...] (test code = 12 U/L 6-55 347) Telecom Coordinator ID - TUAN CSpecimen moderately ictericRAD, CHEST, [...] Walker Verified Date/Time: 01/21/2020 10:03:32 Reading Location: [facility] Radiology Reading Room XR chest 1 view portable / [id number] 10:03:00 Interface, External Ris In - 01/21/2020 [...] Walker Verified Date/Time: 01/21/2020 10:03:32 Reading Location: [facility] Radiology Reading Room [facility] W/PLT COUNT & AUTO [id number] 09:59:00 Test Item Value Reference Range Interpretation [...] PERCENT (BEAKER) (test code = 2801) PROTHROMBIN TIME/[id number] 09:53:00 Test Item Value Reference Range Interpretation [...] ABDOMEN, WITHOUT CONTRAST 2020-01-21 07:51:00Referring: [facility]: MRI of the abdomen [...] MDReport Verified Date/Time: 01/21/2020 07:51:30 Reading Location: [facility] Diagnostic Imaging Reading Room - [place] [address] MR abdomen without IV contrast 2020-01-21 07:51:00Interface, [...] MDReport Verified Date/Time: 01/21/2020 07:51:30 Reading Location: [facility] Diagnostic Imaging Reading Room - [place] [address] [address] [facility] Type and screen, [id number] 22:06:00 Test Item Value Reference Range Interpretation Comments ABO/RH AUTOMATED (BEAKER) (test A POSITIVE code = 2260) Ab Scrn (test code = 890-4) NEGATIVE [facility] CenterRAD, CHEST, 1 VIEW, NON [id number] 21:16:00 Referring: Dr. Rowdy Zhang for exam:->JVD [...] MDReport Verified Date/Time: 01/20/2020 21:16:28 Reading Location: [address] Transitional Reading Room Cryptococcal [id number] 11:36:00 Test Item Value Reference Range Interpretation Comments Cryptococcal Antigen, Serum Negative Negative, Interference (test code = 33849-9) Lab Interpretation (test code Normal = 68282-9) [facility] CenterCRYPTOCOCCAL [id number] 11:36:00 Test Item Value Reference Range Interpretation Comments CRYPTOCOCCAL ANTIGEN, SERUM Negative Negative, Interference (BEAKER) (test code = 1828) CBC W/PLT COUNT & AUTO [id number] 09:56:00 Test Item Value Reference Range Interpretation [...] CONCENTRATION Decreased (CELLAVISION)(BEAKER) (test code = 3438) Telecom Coordinator ID - [id number] ID - Lizett OverholtUser comments: Slide comments: COMPREHENSIVE METABOLIC [id number] 05:46:00 Test Item Value Reference Range Interpretation [...] S NOT APPLICABLE FOR DIALYSIS PATIEN TS. Telecom Coordinator ID - MITCH KRISHpecimen moderately ylkeeagCZKQCJUYIY3465-83-17 05:37:00 Test Item Value Reference Range Interpretation Comments PHOSPHORUS (BEAKER) (test code = 2.8 mg/dL 2.3-4.7 604) Telecom Coordinator ID - MITCH [id number] 05:37:00 Test Item Value Reference Range Interpretation Comments MAGNESIUM (BEAKER) (test code = 1.9 mg/dL 1.6-2.6 627) Telecom Coordinator ID - MITCH LHEPATIC FUNCTION [id number] 05:37:00 Test Item Value Reference Range Interpretation [...] (test code = 9 U/L 6-55 347) Telecom Coordinator ID - MITCH RUTHERFORDpecimeyahaira moderately ictericPROTHROMBIN TIME/[id number] 04:53:00 Test Item Value Reference Range Interpretation [...] is2.5-3.5 for patients wiht mechanical heart valves.CALCIUM, [id number] 04:45:00 Test Item Value Reference Range Interpretation Comments CALCIUM IONIZED (BEAKER) (test 1.14 mmol/L 1.12-1.27 code = 698) PH, BLOOD (BEAKER) (test code = 7.36 1810) Sodium, random [id number] 00:37:00 Test Item Value Reference Range Interpretation Comments Sodium Urine (test <20 meq/L code = 2955-3) VALENTE (test code = Reference Range: No VALENTE) NormalsOperator ID - PIAYA L [facility] HospitalODI[facility], RANDOM [id number] 00:37:00 Test Item Value Reference Range Interpretation Comments SODIUM URINE (BEAKER) (test code = < meq/L 243) Reference Range: No NormalsOperator ID - PIAYA LUrinalysis w/Microscopic 2020-01-20 00:30:00 Test Item Value Reference Range Interpretation Comments Color, UA (test code = Yellow 5778-6) Clarity, UA (test code = Hazy 5767-9) Specific Grannis, UA (test 1.017 1.001-1.035 code = 5811-5) pH, UA (test code = 5.5 5.0-8.0 5803-2) Protein, UA (test code = 20 mg/dL Negative A 57756-7) Glucose, UA (test code = Negative Negative 365) Ketones, UA (test code = Negative Negative 6234-8) Bilirubin, UA (test code = Negative Negative 80332-8) Blood, UA (test code = Small Negative A 74319-8) Nitrite, UA (test code = Negative Negative 5802-4) Leukocytes, UA (test code Trace Negative A = 5799-2) Urobilinogen, UA (test 0.2 mg/dL 0.2-1 code = 49411-4) RBC, UA (test code = 1 /HPF 07144-9) WBC, UA (test code = 3 /HPF 5821-4) Bacteria, UA (test code = Rare 73530-5) Squam Epithel, UA (test 3 /HPF code = 17822-9) Hyaline Casts, UA (test 3 /LPF code = 34425-7) Specimen Source (test code = 2795) VALENTE (test code = VALENTE) Telecom Coordinator ID - [auto]Telecom Coordinator ID - tech Lab Interpretation (test Abnormal code = 40202-6) [facility] CenterUrinalysis w/Microscopic + Reflex to Culture 2020-01-20 00:30:00 Test Item Value Reference Range Interpretation Comments Color, UA (test code = 5778-6) Yellow Clarity, UA (test code = 5767-9) Hazy Specific Grannis, UA (test code = 1.017 1.001-1.035 5811-5) pH, UA (test code = 5803-2) 5.5 5.0-8.0 Protein, UA (test code = 64145-4) 20 mg/dL Negative A Glucose, UA (test code = 365) Negative Negative Ketones, UA (test code = 2514-8) Negative Negative Bilirubin, UA (test code = 19042-9) Negative Negative Blood, UA (test code = 57563-0) Small Negative A Nitrite, UA (test code = 5802-4) Negative Negative Leukocytes, UA (test code = 5799-2) Trace Negative A Urobilinogen, UA (test code = 0.2 mg/dL 0.2-1 63975-6) RBC, UA (test code = 63352-4) 1 /HPF WBC, UA (test code = 5821-4) 3 /HPF Bacteria, UA (test code = 77643-2) Rare Squam Epithel, UA (test code = 3 /HPF 62504-3) Hyaline Casts, UA (test code = 3 /LPF 22623-0) Specimen Source (test code = 2795) Lab Interpretation (test code = Abnormal 36020-6) [facility] CenterURINALYSIS W/ REFLEX URINE [id number] 00:30:00 Test Item Value Reference Range Interpretation [...] SOURCE(BEAKER) (test code = 2795) URINALYSIS W/ [id number] 00:30:00 Test Item Value Reference Range Interpretation [...] /LPF 514) SOURCE(BEAKER) (test code = 2795) Telecom Coordinator ID - [auto]Telecom Coordinator ID - techActin (Smooth Muscle) Antibody, IgG [...] of patients withautoimmune hepatitis (AIH) type 1, vbygivrtlpcny86 % of patients with autoimmune cholangitis,lis sherine mately 30% of patients with primary biliarycirrhosi s, and approximate ly 2% of healthy people.High beatriz ues are closely correlated with AIH type 1. VALENTE (test code = Performing Lab VALENTE) EZ [employer] [facility] [id number] [place] [address] Mark Encarnacion MD, PhD, AMINA Lab Interpretation Abnormal (test code = 24421-0) [facility] CenterZinc2020-06-24 20:06:00 Test Item Value Reference Interpretation Comments Range Zinc (test code = 39 60- 130 mcg/dL L This te st was ) developed and i ts analytical performance characteristics have been determined by [email or web address] . It has not been cleared or appr jean-claude by theFDA. This assay has been validated pursu ant to the CLIA regulations and is used for clinic al purposes. VALENTE (test code = Performing Lab VALENTE) *BEATRIZ [employer] [facility], [address] [place] [address] Jorje Jauregui MD, PhD Lab Interpretation Abnormal (test code = 98339-6) [facility] [id number] 16:12:00 Test Item Value Reference Range Interpretation Comments Case Report (test code Surgical Pathology = 104) Report Case: [id number] Authorizing Provider: Sylvie George MD Collected: 01/17/2020 08:15 AM Ordering Location: [address] Received: 01/17/2020 01:50 PM Service Pathologist: Humaira Mendez MD Specimen: Duodenum, biopsy ADDENDUM (test code = t1nsrWYvNXZcjATjIyMtLX 3381) VvQVCkd1cbYGFprMCuZtFi MzNcZnRuYmpcdWMxXGRlZm Lou8mux380mUPfk5fbEDKp IyW3vRUbZZEvkVJvO803SD ItKVrow1aew8SjLZLjaPKd x3V0KIQPupewwMo1dMvnA0 1pl3W3WixkK2phSBNyGZOs S8KeHL6gGSDfQqp1SNK6DP T9UEWpIBGfX5NpJK4mXUCp rBQwULf7u6yrlEbsJYCtSL T8l9dbDArphrRiZI0jwn6r zGz6g3pzofTjCVYtJXWsbN NZJFRhF7OatZmiEo1frCj3 qXmhJdsjDXB2Fbt4IV0kst 91tdv3ePmqZFIqifhwBsQ6 LHcoOPXnpermWYv9POqxRD BjdXL7ICJtjRWnS1DuWGKp RN6jizm2WES3HHejECUkJu E9JBBtzWLpYNJwiHzkHYsb r688CKN0WeMwPA1iU8Jox3 S1qU1dzUHiVHStqFGwWeYn MDOatb1vsVOqEVgyf2VjTW W5znG9dPJdsONmSIAvCZ73 Iewnp1UlZediKNI0SHTdnu Qlj0Izh8eeIbVsvdAdT6wf B3FeRZXxDENbIDOfBiPuxb Cvi2Mxo8OetLIweUt7v2wy TUCgMRQvnRmdx0yxVYS2JB CaE0P3qMKmj5bsMWmyTKUm hRA6iiQ2AMTwpXZbL0JjjK 8qIHMcHI2mkuq3c5ogCLX4 IHnmVSWgQbM3nwJ2VWJmfT SoZXEmxUgrKChcn597DAA4 WcWzKAYba0VtF6GqhIotF5 3tqZqsH44wZMUzbZwezL9r dArkeM6eCeOnKuMbHPdnRU JkXHBsYWluXGYxXGZzMjBc bGFuZzEwMzNcaGljaFxmMV vtJzOzQFXgEGzyB1zuZeZk YdCbIXCQILfSITCXSE0MWD 8PCUkWGJySH8KJYVUUAoSI RVBPUlQgVEhFIEZJTkRJTk dTIElOIFRIRSBERUVQRVIg FXMHHIqQSH8NYBHFAQUYCZ 0VI8prBL2EICwFQjMxNXfO AAACTgJZIMAZZOnRG0HUMz pccGFyXHFsXHBsYWluXGYw QCVmXrPwyYfgvT7eTvYtLj JjMYloXG1pUDIxC6lfwHFw TJJkCZAkD5eqWcUarX8jmA xmMVxmczIwXHBhciAgRFVP JFIPOY8eMGWXXR3QR54BWU MgQklPUFNZOlxwYXIgICAt EAUQOXXSZGDfWfAMQ2SCWu PHEiKQCDVyLXRFKF3VTFAQ J8CONQKjIAEEB5uSW6BMMk AwD3ZuTP5DYNYMIYNOG3BR Ju5GMWRNAPluNMKaPVIlVS 5QDQOAAYSBPuACHJ6GUUVV TElBQyBESVNFQVNFIFNFRU 5ccGFyICAgLSBOTyBHUkFO VUxPTUFTLCBEWVNQTEFTSU ZsE4BkUPCIDSrDWK0OQTSV RUVOXHBhcn0= DIAGNOSIS (test code = c1yxkXWjMIGla5lfPCSyxL 3220) FuZzEwMzNcZnRuYmpcdWMx YXrnspTfXJsxz2PmM1XgNl AwMFxhbnNpXGRlZmxhbmcx FUTtZCN1adZuXXHtZBqiGH DyVEswXq0opVXwcPdkBbRt EVVtu1bhorJRbmysnVw3q4 wpTXBvOlI8wNLiQFvnC6ej uoLihFZoCQCtTWf1rL57RX NevM4coNPmIIkbtrGtTcZ7 YYmaYWPkUwA8QGTyhRMnVI DtM2waVZVwKErjCECiEJne hXDgOVZ0oBorg1I3mQIpdR IlcTasFhWvEtSqGLQMh4Fk JQt7iYsfJ5PjBZUpPoW9zT QgUGFyYWdyYXBoIEZvbnQ7 fP81RFeivgQ5qJJtq9Rss7 5pn739kX1lgULoRGP1CCMj ELQssPZtQVBgIDK4TSEdwW PxR5z5AnIrnNWiW4I2GmEo mSVpS9F9QwQpiMFhV3H6Ah RosQMeSZBqzJQkUk0nmTKh rBYrxa6hvt74VMX8u4PlrE qjQDV8ZBM0OvNqLs6eqGZy WAQnXK5pCnUuuIDkQXVrhy 24zGgrYHlhasYawU2bTpPw TVMlvKWwGGTyFO7jyJAlCF RxkG3qzrfhTEFcZvOnfynl YNRmyYbbwyHkZq1wwSaiWN D8RFejZ6bmrO7oVqW9MKjb E6nzoA8nUDr3LXqorKQ9UD PglC4hVQ5sgfjiz8vqTcKi LB5lmmgsh4vkCvNeEW5mgx v3n9iaIeNqKW6tnagbz7zm NzIwXGhlYWRlcnkwXGZvb3 QzztrtGDKnc9HwW7HhxZib R45xrIbwZ87lPJHmlXubwE 1qvPdnwD0fTjRhDgKaTEdf bFxwbGFpblxmMVxmczIwXG plnxieLREkBBxkE8unUpBy YTMfyLvcEKfly4NoXSKzFG AvXiRdZBTXFTAVBT3fIURZ ER0DW87TBMLcRyqCCUSDBv dvCQIrXHSjO2KFCTDNNRGB NAemRsAEP40QPjQPTX1WYR LYPDeIUTESR6CSXK1WI63R YNXAESRGNMoTM0NPTRWqCa 2BCZ8QVFIzOKBUSZVAHKWP YUivSGKsfBVnPILkty84BT B2BlUof1N7DIW2JGClRASc e2xmJSKhaFYkGwWrYpLcVd SeGktaaSJtWCFhDuPtx1wl e511vDRlz3umYESpDiW7lB BiIEQfjFIvQ534LTBySTnp j3dxn3OwVYBbmMUeb9U4WK FAlqwahSd1dNhtS29pd5A2 CbobF4eeZUKvWAVsO9TtAC 1xOOKmPsb9UMF0UXW9EZNl XOYeQ2LgSC4dESBbaUEkKD h0g6mujJoxYHRyPSU6p0co PWdlhyNuZE0hqs4mnNj7q5 xjczEgRGVmYXVsdCBQYXJh V0WwcIzfWa0dhFy3jLioTi ddHIU7Rjk1GS6jkg57exj6 gVklTWPdxuzcEvA0NYkfTE WsfhimYSh5THzfOKNlbNM6 FDDjeNDwP0TeBRGmFK7xom w7MEQ7OEknHOUfOfC7KDMn hRAjTTBpjYgbXEqji365OF M2QfBmDU3yL7Fff9E0jL8s aXRcZGVmdGFiNzIwXGZvcm 1vkLSbIWtww5DfIAE7zdY5 wIZmvWBfXAXcGhT5UYiaMX 0jah06LTZdMSF0cg9mlSDa eRcwiiYaiJIqQVhoF6AqXE Bps721IXYwD6PzTFXry2F8 kdDuXfWqOSPilBA1kyH8LC BbWE7shrxwc0enFSisCTjn VDNrqxF6fkO3QVBjpDMrZ8 RwiS9zTMVwSU3pvhvoa9er UGH2KHkgYQFdEZC9RsSwNV Qbi3Anzdl5JxKzc3EguTKw FByyM71ww830LDKuchFvW8 xwbGFpblxwbGFpblxmMFxm fhV8VGZbUKukiquiCOUaGI kxT2whOkStLCFvpSsbHKsl t0CsJPFbPECdTqCtxGFmTH NoSxd3FXBldFLaJCKbSyNi V7xgaigkSfEZOLPaz8oiP9 vcySHLxRPaR2EtZRfmicDe ZKlmVOpgEQC6RDX7Fs85Vi T0FEYvnk15 CPT Code(s) (test code j9pnyLSfNHPlqAOhZpEkBO = 3357) NuHRNha3txOMMbnVIgJsMy MzNcZnRuYmpcdWMxXGRlZm Dhq9boe881qWDlk0jmPFHo RrC0aSJwRIZyyPCoG545k3 jcc3obhtCioHE8EDAcDJV4 AHevneQmrtP8SRmgfRVrKz C7DBhhruVmKLtgnxShxzMr Kgt4RULyC098HVW8wLnjk5 rsRCM3SBVlWLVtEuWcLk9o nWKkJ721RNAvCQNDFVAthS d0DUFgmpDhwdJauZLUv978 I450p6meZJHevaBspWpTau atc8jgC854QVGgtXYmvlLh LvDrNBHprSCkvDZ3DFGmBN 5ledtkSpMcIR6qgroaInTh JT5rzsa8PcBtNC6xkwxjYe ZqFJljPCZqbdgqPRDbg9Us aakfOA4aA8Sre4R6bY6vjV UjJEYkdRImWlDmVKZxqp6u dPWgWBagd6FzBYN0bdU2xM WftPOrGZSxFW03Cktaf9Us RtosOVZ8FTCrlqZbf2Qyu1 bsTqQviwEhQ9knV1WiBMWc GZMfJIYtTcFgvnKoe8Mir3 LadSFlvUf6f2sqCWGyNNCl vLgqp3ajDCA4RDJzV4S8aO Wdd9gpMBcqPLLhtOG0quwv HPppWMEfxsZ6htwpKLmiLX ZfaKX1rkuxUNtxHJJpSrM9 wxrqEDvtVZRrHLP4ZOybm4 95AKZ1DKezOeijKCsfAKAm bmNvbnRccGduZGVjXHBsYW luXHBsYWluXGYwXGZzMjRc lPwtyWhzqA1lWbFoIfOmOT gtQM6uVRMgU8rngKMtSGYs IQHtH3ppUfVhcQ2wiJieZX mhpoMxODx2SzY0RZLkcn9= CLINICAL HISTORY (test u3hjnBNaOZQnuUEoReIbYO code = 3356) ZdQXNlo5qqZMKxoYCtZpVn MzNcZnRuYmpcdWMxXGRlZm Svk1han978gVIga7aiZMQu KlZ1xINsRJYuzTUqW321OP WcVMalm4chn6TzQZUuaDBq r4K3EPVKdtogeUm2ySrgU4 8sc6U3RcqmX2rzSIOjMDad VBViERpppGDhQZI4KGDeHI B2UDhnzmWebxD2KHkuaFXk ChF7JIr3v6zlzPrfRMDhIA E4e0qoTZgxksRkVS4ash0c oMm1s3xuldPtQSWkUURizI EUSHBoO0CemPreWr4toAg6 mOlgNaiiPNS3Isc9NO4cdl 89rrm9gGkpXEWvenbwVbA1 CNfbOJDirrwzFYr6JYjhSF JnbDcyMFxtYXJncjcyMFxt YXJndDcyMFxtYXJnYjcyMF tmNJDwPOJ0MDnej134KRJ2 DSusc6wdt7rvpTTiNkm1UT NzQeJzFegrBSyyz2Sqh2lt OODbhj4bSXR1lHAxuNlja7 T4fEYuLIJoxSZygxNqVNKr WlY4MGttUV5qdx17DRJfHI Q3ud5ibRMowJazkoPtdMEl VMfjH8XwQMHda206RTNkF6 GtUCJnc4I1vtWtEzSeOYQp bPN6nhA7KCNiTKf3sJKfwf J5znPggIWgR0ygdJ63FtQp zLNfN7IrdO52LfFipQIiY0 GkmO74XhDpbEMeB2ZwyC16 JrRenHDiYIGggKSeDu3quD JidTFgu8BrrFSxZMguB29w c494ZTBgvbKlZ4uidJKpym xwbGFpblxmMFxmczIwXHFs XHBsYWluXGYwXGZzMjBccG exlP7yOmOxAjTtSAGDpj7q HSY6raZ4PYQqiITqWLKmRM 7cG59gfEtsWxvmmYF3YMZt LPXun1ajmf2zQ81orJKqrX ZhKHTtROEqfnIgeF6zfS3x ATZaFPoxi9SuxvxeLD2zsN lhXHBhcn0= SPECIMEN SOURCE (test j4trhBLgHRUraRAgOtGoVZ code = 3377) MjMRUyi6eyCDUvhKJlKnQa MzNcZnRuYmpcdWMxXGRlZm Lhj5uws398hQZsl7reSXCl McQ8xKBwHLZuiRAiH016k4 jfw2iekiXexAN5ZMDiSJB2 VUjrdfPglmA3XFvqjHTdGl E0QTqjihBcWTwsaeEckyIb Flg5CIHyH065DYP2uDkdd9 cuUEK0OHNzUNAoVgXmGw9o eICbF601ZUDuUHPIPIOcfJ h2MJBydwSygxRhfDIJx623 J963m1yuZRRcmqGzxZeQkg wut7vbV591RMVisVWepxPh ArQjZNUmwXSjgBT5JNEoRU 0umiwrSuLsSS4jogesNbAn XR1krrn1DzBeEO6uudjpGj ShDAfkVFEeoptqCZUrd2Xr kbdbDD3cR1Mfj8A5wR0krF DxEXVkpEHjSyIuVQCrek1r gBKkMXfth2OkNEL0sdK1jY DmyRXaWMCbCU34Taojv6Yy NukkIYU5KVVozkCcp5Zff3 iiLgZdlkYmH6gqF9PnAMQw HOAsEFChAgCxekBho2Kwy3 SipNPqaMm1h5lfRREtSOHf sPlxu6arQMJ1EXSmU9A5iS Phf2qoLGlgRCFtoPB0xzsr JLsrGAGjpeJ1okmvUXifAZ JvyBG8hvppKCcwUYRmShW3 zajcFLhlXHOsRDJ9VIrjf1 48BPK5KDsbWprnIEkzBUFv bmNvbnRccGduZGVjXHBsYW luXHBsYWluXGYwXGZzMjRc mIewvNmdtG1yNzIdMgWwNZ tiIA1pQGPnV3csgIUgUXNl JTAnM4bpLwGcnE8ciEdfYV dyahHoLUSyWGR1o0VsxfPc WeKlrF8ix8yddYZcqS== GROSS DESCRIPTION (test f1liwMDxWVAwlLFtObGiGY code = 3367) MjDYDwl2akMCFcaTHaKqGa MzNcZnRuYmpcdWMxXGRlZm Tzx4jfb651vWLdu8vnKHJb QcP6uAJtRIGqdOTwS119IX OxNLhrm8yzh4ChAREttJMd z8M1VAAUlqcjwZv6iPqdZ1 6gd2B3JuifV1jcBYMxHGlz GCJzLQsquDNkDZW0SFYlLN L4QSygomCapbE5WQisdYTy ElM8ICr9e4mgmJigFMHsTH H0v4rnVPuedeNfGO6suv7n jZh6c5cmakLuNJPzVUYmkX CYEPMoE0KzuVreFm2goIc8 yKncUvsaTEE0Lhl4GJ5syg 17kol7mCeaLKVoreevSkQ4 YKeiQHZwbjilUQp3RRwvJI JnbDcyMFxtYXJncjcyMFxt YXJndDcyMFxtYXJnYjcyMF ruPYLwRIW2IWnnf051OTZ5 JNclf3xfw7lrsHHzWyp3YA QdIrQoXiizMYnlr9Xpj6yt HFUhba1eUNE1cXNnjOfnx5 A4lHKxSOIrcMKslmRkPHIc McR7PWviXT9bmc90RMZtEW M3uc0hvAAqbLhhhsXmuHKv VEvaZ1TeAAAuw593UMRqF8 IhOQLmr9G3atWdGsIuVCCh mYC7mlT4RWJmKNi3dYHyta K5wwWrfWJhG9vcyG17NvUp zVSwH4FykG01FgJnbUGgD0 KlsX03ElXhqSUjU6QreM76 FhMunUShFTRerOLgHz7gkC MksILnj9OgdFIyXEtmQ20o e860TNVffyGbN1tvuJNhlj xwbGFpblxmMFxmczIwXHFs XHBsYWluXGYwXGZzMjBccG xzfM5aUfUmDiEiMZGIFlWH iHNgh4IwJ7cuVS7hfIMrxr UcCZz4KRVadU7rUf0bbVWh fD3tMMMlJXmwCWCdGPLnIh PenDNxNYnkSLB0uASjITWu DSZkFAUxMK04M7SvbwIdID gvDKYmPXRtkP3hHU26uZWz ciBhbmQgIlxwbGFpblxmMF kbvaTjJMV9a6YrodIxQyHn csYhB51wt5qyhGZrt5Zwp8 2gVJBbjy5ubW2fUSgxsWVf fcppAPonpvBrTU14S67hLO ckC075KXXcNVlptDLweqrn MFxmczIwICBwaWVjZXMgb2 RrsNieq9UaWO1xHIU7seob ZyAwLjMgeCAwLjIgeCAwLj QtN74uXEadjSFnscmfRZiq fgKaRPFcFANtwKKtjW9vqw FxspByxMOybVP0HTIkCP25 kQVvsNjwMw6iuH05bG7jLU RilKSgIPFqn14mgG0yXNPh EGBcEDX5GDLocTqehE6gGc GdOwPyEXLLVI8lJWeST6Wq XHBhcn0= MICROSCOPIC DESCRIPTION i0imfKSwZQPcdBWhOoMgNG (test code = 3371) XzKRMpx2hyLQMbvBByXqWh MzNcZnRuYmpcdWMxXGRlZm Awg3opi915kTNrf6scARHh EaC5yYCpMZPuhZMjR606y2 srb7ogvaSrhOO0UQRaVSR0 QMcuydRsceB8VUahtDNqCe Y7TRbgrzOoKLhrhvFsabPt Ckx3FFZwU570OMH3nNscf4 msBRL0TBVySWUcZhFiIy3w vWZyG175EHNvDZTSBERuxV v0NDXkxfEfobNisSQJg617 F383o7vdCXTwzaKwbEdIcx qnz6byR235FQCgtBGytvXr NlVaJMEsePJtmEY3JEIjZA 0weiogXwKwAK5ksfsoXwHu EX8ehgh3HxCpWL3opqtjXg CcCJnoXBDzozuxAVNiq4Ik usutBD7sF1Wfq3Z8kY1mzW GhTMOjdEWiFyLcSOMlth6o eWVsYIcca0ZkMOU9vkG2hG YcwDPaKPFdOZ92Sikgk7Eh KhukPJS2VIAxaqOqz6Qnj5 dcKwGgfvFpL0nhF2IjONUd ROWqXFVpFiGiobDyh1Qca7 IbdYZwpXv7r1wbMXRnTMLv nYbsd4fyCFD4NIJfS3I4gP Vtz2lgBUhgEZJvfQW0kvnt UBrcQVXwlsB6jgciONlaJE BheYE7dvqsMTkySJPfNcK9 ucnoOHxxZJNdOWZ0WArbd7 93SAP4PYnwAczmIVpbLUEb bmNvbnRccGduZGVjXHBsYW luXHBsYWluXGYwXGZzMjRc gBhnwEgqkL0kEhNaIzMxZF qtWP7zCBHeZ3lnfRXtTYMi TZXpN2rdJeGhoY5crLdwOC vxniGnZYNGDuAHPj3TYNky YXJ9 [facility] [id number] 16:12:00Surgical Pathology Report Case: [id number] Authorizing Provider: Sylvie George MD Collected: 01/17/2020 08:15 AM Ordering Location: [address] Received: 01/17/2020 01:50 PM Service Pathologist: [...] FOVEOLAR METAPLASIA Signing Pathologist Direct Phone Line: [phone] signed by Humaira Mendez MD on 01/18/2020 at 3:50 [id number]: upper endoscopy, biopsy and colonoscopy Pre and postop diagnosis: anemiaA. Duodenum; biopsyA. The specimen is received in formalin labeled with the patient's name, accession number and "duodenum" and consists of one garduno-pink mucosal-covered pieces of tissue measuring 0.3 x 0.2 x 0.1cm. The specimen is submitted entirely following filtration in a cassette A1. HS/plPERFORMEDBlood gas, [id number] 16:03:00 Test Item Value Reference Range Interpretation [...] % Lab Interpretation (test code = Abnormal 73769-5) [facility] CenterBLOOD GAS, [id number] 16:03:00 Test Item Value Reference Range Interpretation [...] (BEAKER) (test code = 1819) 28.0 % [id number] 15:05:00 Test Item Value Reference Range Interpretation Comments Ceruloplasmin (test code 21 mg/dL 18-53 = [id number]) VALENTE (test code = VALENTE) Performing Lab *BEATRIZ [employer] [facility], [address] [place] [id number] Jorje Jauregui MD, PhD [facility] CenterCarbohydrate antigen 19-9 (CA 19-9)2020-01-19 12:51:00 Test Item Value Reference Range Interpretation Comments CA 19-9 32 U/mL <34 This test was (test code = performed using the 96572-6) Siemens Chemiluminescen t method.Values o btained from different assay methods cannot be used interchangeably .CA19-9 levels, regardl ess of value, should n ot be interpreted as absoluteevidenc e of the presence or abs ence of disease. VALENTE (test Performing Lab code = VALENTE) EZ [employer] [facility] [address] [place] [address] Mark Encarnacion MD, PhD, AMINA [facility] CenterPROTHROMBIN TIME/[id number] 11:28:00 Test Item Value Reference Range Interpretation [...] patients wiht mechanical heart valves.MM, U/S, BREAST, [id number] 09:52:00Referring: Dr. Rowdy Zhang for exam:->liver transplant [...] Brooks MDReport Verified Date/Time: 01/19/2020 09:52:28 Reading Location:[address] Mammo Reading Room US breast [id number] 09:52:00Interface, External Ris In - 01/19/2020 9:54 [...] MDReport Verified Date/Time: 01/19/2020 09:52:28 Reading Location: [address] Mammo Reading [facility] WITHOUT [id number] 08:09:00Referring: Dr. Rowdy Wileyesthesia:->NonePlease specify abdominal organs:->AdrenalFINAL [...] MDReport Verified Date/Time: 01/19/2020 08:09:04 Reading Location: [facility] Diagnostic Imaging Reading Room - [place] [id number] CT abdomen without IV contrast 2020-01-19 08:09:00Interface, [...] left-sided pleural effusion concerning for pneumonia. Signed:John rCocker MDReport Verified Date/Time: 01/19/2020 08:09:04 Reading Location: [facility] Diagnostic Imaging Reading Room - [place] [address] Electronically signed by: JOHN CROCKER MD on 0 01/19/2020 08:09 [facility] HospitalCALCIUM, [id number] 07:59:00 Test Item Value Reference Range Interpretation [...] To Exercise midodrineConfirmed by fellow Bc Chávez ([id number]) on 01/18/2020 9:20:19 AMConfirmed by Shaq GARCIA MICHAEL([id number]) on 01/19/2020 7:03:55 [facility] HospitalCOMPREHENSIVE METABOLIC PANEL 2020-01-19 05:21:00 Test Item [...] S NOT APPLICABLE FOR DIALYSIS PATIEN TS. Telecom Coordinator ID - LASpecimen moderately wtiaeunGTJQDVISWT6491-28-99 05:04:00 Test Item Value Reference Range Interpretation Comments PHOSPHORUS (BEAKER) (test code = 3.3 mg/dL 2.3-4.7 604) Telecom Coordinator ID - BOCHGOYCBHJ6600-81-58 05:04:00 Test Item Value Reference Range Interpretation Comments MAGNESIUM (BEAKER) (test code = 2.0 mg/dL 1.6-2.6 627) Telecom Coordinator ID - LAHEPATIC FUNCTION [id number] 05:04:00 Test Item Value Reference Range Interpretation [...] (test code = 10 U/L 6-55 347) Telecom Coordinator ID - LASpecimen moderately ictericB-TYPE NATRIURETIC FACTOR (BNP) 2020-01-19 04:59:00 Test Item Value Reference Range Interpretation Comments B-TYPE NATRIURETIC PEPTIDE 2455 pg/mL 0-100 H (BEAKER) (test code = 700) Telecom Coordinator ID - EDWIN BCBC W/PLT COUNT & AUTO [id number] 04:46:00 Test Item Value Reference Range Interpretation [...] (BEAKER) (test code = 2801) U/S, RENAL, [id number] 01:26:00Referring: Dr. Rowdy Zhang for exam:->Re-examine L [...] Sneed MDReport Verified Date/Time: 01/19/202001:26:59 US renal [id number] 01:26:00Interface, External Ris In - 01/19/2020 1:29 [...] Maira Sneed MDReport Verified Date/Time: 01/19/2020 01:26:59 [facility] HospitalEosinophil [id number] 22:11:00 Test Item Value Reference Range Interpretation Comments Eosinophil Smear (test Rare EOS =less than No EOS seen A code = 73298-7) 5% WBCs seen are EOS Lab Interpretation (test Abnormal code = 14161-1) [facility] CenterEOSINOPHIL SMEAR, [id number] 22:11:00 Test Item Value Reference Range Interpretation Comments EOSINOPHIL SMEAR, URINE Rare EOS =less than No EOS seen A (BEAKER) (test code = 5% WBCs seen are EOS 1851) SODIUM, RANDOM [id number] 22:04:00 Test Item Value Reference Range Interpretation Comments SODIUM URINE (BEAKER) (test code = < meq/L 243) Reference Range: No NormalsOperator ID - EDWIN BCreatinine, random urine 2020-01-18 22:02:00 Test Item Value Reference Range Interpretation Comments Creatinine, Ur 181.3 mg/dL (test code = 2161-8) VALENTE (test code = Reference Range: No VALENTE) NormalsOperator ID - EDWIN B [facility] CenterProtein, random [id number] 22:02:00 Test Item Value Reference Range Interpretation Comments Protein, Urine (test code 45 mg/dL 0-14 H = 2888-6) VALENTE (test code = VALENTE) Telecom Coordinator ID - EDWIN B Lab Interpretation (test Abnormal code = 76003-1) [facility] CenterCREATININE, RANDOM [id number] 22:02:00 Test Item Value Reference Range Interpretation Comments CREATININE URINE (BEAKER) (test 181.3 mg/dL code = 375) Reference Range: No NormalsOperator ID - EDWIN BPROTEIN, RANDOM [id number] 22:02:00 Test Item Value Reference Range Interpretation Comments PROTEIN, URINE (BEAKER) (test code = 45 mg/dL 0-14 H 1569) Telecom Coordinator ID - EDWIN BURINALYSIS W/ [id number] 22:02:00 Test Item Value Reference Range Interpretation [...] (test Urine, Sterile code = 2795) Collection Telecom Coordinator ID - [auto]Telecom Coordinator ID - techHepatitis B core antibody, [id number] 16:02:00 Test Item Value Reference Range Interpretation Comments Hep B Core Total Ab Nonreactive Nonreactive (test code = 19632-0) VALENTE (test code = VALENTE) Telecom Coordinator ID - CHARO F Lab Interpretation (test Normal code = 87675-8) [facility] CenterHEPATITIS B CORE ANTIBODY, [id number] 16:02:00 Test Item Value Reference Range Interpretation Comments HEPATITIS B CORE TOTAL ANTIBODY Nonreactive Nonreactive (BEAKER) (test code = 497) Telecom Coordinator ID - CHARO FECG 12 [id number] 14:19:40Interface, External Ris In - 01/18/2020 2:19 PM CDTVentricular Rate 62 BPMAtrial Rate 62 BPMP-R Interval 138 msQRS Duration 86 msQ-T Interval 452 msQTC Calculation(Bazett) 458 msP [place] 59 degreesR [place] 32 degreesT [place] 56 degreesNormal sinus rhythmLow voltage QRSNonspecific ST okrrspflcaq03 JUN 2020 11:05Nonspecific T wave abnormality Nonspecific T wave abnormality, improved inQT has shortenedConfirmed by MD FARHAT, [facility] ([id number]) on 01/18/2020 2:19:38 [facility] Cytomegalovirus antibody, [id number] 13:49:00 Test Item Value Reference Range Interpretation Comments CYTOMEGALOVIRUS, IGG Positive Negative, A (test code = 3429) Equivocal VALENTE (test code = VALENTE) CMV IgG Result Interpretation: </= 0.8 Al Negative 0.9-1.0 Al Equivocal >/=1.1 Al Positive Lab Interpretation (test Abnormal code = 15177-7) [facility] CenterEBV-VCA antibody, [id number] 13:49:00 Test Item Value Reference Range Interpretation Comments GABRIEL CHING VIRAL Positive Negative, A CAPSID ANTIGEN IGG (test Equivocal code = 3415) VALENTE (test code = VALENTE) Gabriel Ching Viral Capsid Antigen IgG Result Interpretation: </= 0.8 Al Negative 0.9-1.0 Al Equivocal >/= 1.1 Al Positive Lab Interpretation (test Abnormal code = 23087-0) [facility] CenterEBV-VCA antibody, [id number] 13:49:00 Test Item Value Reference Range Interpretation Comments GABRIEL CHING VIRAL Negative Negative, CAPSID ANTIGEN IGM (test Equivocal code = 3418) VALENTE (test code = VALENTE) Gabriel Ching Viral Capsid Antigen IgM Result Interpretation: </= 0.8 Al Negative 0.9-1.0 Al Equivocal >/= 1.1 Al Positive Lab Interpretation (test Normal code = 34015-7) [facility] CenterCytomegalovirus antibody, [id number] 13:49:00 Test Item Value Reference Range Interpretation Comments CMV IGM (test code = Negative Negative, 3437) Equivocal VALENTE (test code = VALENTE) CMV IgM Result Interpretation: </= 0.8 Al Negative 0.9-1.0 Al Equivocal >/= 1.1 Al Positive Lab Interpretation (test Normal code = 36996-8) [facility] CenterCYTOMEGALOVIRUS ANTIBODY, [id number] 13:49:00 Test Item Value Reference Range Interpretation Comments CYTOMEGALOVIRUS, IGG (BEAKER) Positive Negative, Equivocal A (test code = 3429) CMV IgG Result Interpretation: </= 0.8 Al Negative 0.9-1.0 Al Equivocal >/=1.1 Al PositiveCYTOMEGALOVIRUS ANTIBODY, [id number] 13:49:00 Test Item Value Reference Range Interpretation Comments CYTOMEGALOVIRUS IGM ANTIBODY Negative Negative, Equivocal (BEAKER) (test code = 3437) CMV IgM Result Interpretation: </= 0.8 Al Negative 0.9-1.0 Al Equivocal >/= 1.1 Al PositiveEBV ANTIBODY, [id number] 13:49:00 Test Item Value Reference Range Interpretation [...] Negative 0.9-1.0 Al Equivocal >/= 1.1 Al [id number] 13:35:00 Test Item Value Reference Range Interpretation Comments T3, Total (test code = 3053-6) 51 ng/dL 48-159 Lab Interpretation (test code = Normal 22560-9) [facility] CenterT32020-06-23 13:35:00 Test Item Value Reference Range Interpretation Comments T3 TOTAL (BEAKER) (test code = 656) 51 ng/dL 48-159 PET/CT, CARDIAC PERF REST AND [id number] 12:45:00Referring: Dr. Rowdy Zhang for exam:->pre op cardiac clearance for liver transplantFINAL REPORT PROCEDURE: MYOCARDIAL PERFUSION PET IMAGING (Rest/Stress)CPT CODE: 72580 INDICATION: Evaluation for liver transplant CARDIOVASCULAR PROFILE:Symptoms: [...] MDReport Verified Date/Time: 01/18/2020 12:45:40 Reading Location: [place] [id number] NM Myocardial Perfusion Pet/CT (Rest & Stress)2020-01-18 12:45:00Interface, External Ris In - 01/18/2020 12:47 PM CDTFINAL REPORT PROCEDURE: MYOCARDIAL PERFUSION PET IMAGING (Rest/Stress)CPT CODE: 99764 INDICATION: Evaluation for liver transplant CARDIOVASCULAR PROFILE:Symptoms: [...] MDReport Verified Date/Time: 01/18/2020 12:45:40 Reading Location: [address] Reading Room [facility] HEPATIC FUNCTION [id number] 10:29:00 Test Item Value Reference Range Interpretation [...] (test code = 9 U/L 6-55 347) Telecom Coordinator ID - CHARO FSpecimen moderately ictericCBC W/PLT COUNT & AUTO [id number] 08:43:00 Test Item Value Reference Range Interpretation [...] CONCENTRATION Decreased (CELLAVISION)(BEAKER) (test code = 3438) Telecom Coordinator ID - JohnOperator ID - Lizett OverholtUser comments: Slide comments: [id number] 07:29:00 Test Item Value Reference Range Interpretation Comments MAGNESIUM (BEAKER) (test code = 2.1 mg/dL 1.6-2.6 627) Telecom Coordinator ID - CHARO FBASIC METABOLIC [id number] 07:29:00 Test Item Value Reference Range Interpretation [...] S NOT APPLICABLE FOR DIALYSIS PATIEN TS. Telecom Coordinator ID - CHARO FSpecimen moderately ictericAnti-Nuclear Antibody (REILLY) 2020-01-17 10:54:00 Test Item Value Reference Range Interpretation Comments REILLY (test code = 67111-8) Negative Negative VALENTE (test code = VALENTE) Test performed by IFA method.Test performed by IFA method. Lab Interpretation (test Normal code = 36586-8) [facility] CenterANTI-NUCLEAR ANTIBODY (REILLY)2020-01-17 10:54:00 Test Item Value Reference Range Interpretation Comments ANTI-NUCLEAR ANTIBODY (REILLY) (BEAKER) Negative Negative (test code = 418) Test performed by IFA method.Test performed by IFA method.[id number] 10:49:00 Test Item Value Reference Range Interpretation Comments RPR (test code = 39445-1) Nonreactive Nonreactive Lab Interpretation (test code = Normal 71770-0) [facility] CenterRPR2020-06-22 10:49:00 Test Item Value Reference Range Interpretation Comments RPR SCREEN (BEAKER) (test code = Nonreactive Nonreactive 420) CBC W/PLT COUNT & AUTO [id number] 10:00:00 Test Item Value Reference Range Interpretation [...] CONCENTRATION Decreased (CELLAVISION)(BEAKER) (test code = 3438) Telecom Coordinator ID - [id number] ID - Alem Mars comments: Slide comments:BASIC METABOLIC [id number] 05:16:00 Test Item Value Reference Range Interpretation [...] S NOT APPLICABLE FOR DIALYSIS PATIEN TS. Telecom Coordinator ID - PIDORIAN LSpecimen moderately sqmhthpXRFWHGFRC9003-70-54 05:15:00 Test Item Value Reference Range Interpretation Comments MAGNESIUM (BEAKER) (test code = 2.1 mg/dL 1.6-2.6 627) Telecom Coordinator ID - MITCH LPROTHROMBIN TIME/[id number] 04:50:00 Test Item Value Reference Range Interpretation [...] patients wiht mechanical heart valves.Vitamin B12 and Smbnii0668-25-06 16:46:00 Test Item Value Reference Range Interpretation Comments Vitamin B12 (test code = 1107 pg/mL 213-816 H 2132-9) Folate (test code = 2284-8) 3.40 ng/mL >=7.00 L VALENTE (test code = VALENTE) Telecom Coordinator ID - NTP Lab Interpretation (test Abnormal code = 12189-5) [facility] CenterVITAMIN B12 AND [id number] 16:46:00 Test Item Value Reference Range Interpretation Comments VITAMIN B12 (BEAKER) (test code = 1107 pg/mL 213-816 H 774) FOLATE (BEAKER) (test code = 362) 3.40 ng/mL >=7.00 L Telecom Coordinator ID - NTPLactate dehydrogenase (LDH)2020-01-16 12:57:00 Test Item Value Reference Range Interpretation Comments LDH (test code = 2532-0) 250 U/L 125-220 H VALENTE (test code = VALENTE) Telecom Coordinator ID - TUAN C Lab Interpretation (test Abnormal code = 79585-6) [facility] CenterLACTATE DEHYDROGENASE (LDH)2020-01-16 12:57:00 Test Item Value Reference Range Interpretation Comments LACTATE DEHYDROGENASE (BEAKER) (test 250 U/L 125-220 H code = 635) Telecom Coordinator ID - TUAN CRETICULOCYTE [id number] 12:44:00 Test Item Value Reference Range Interpretation Comments RETICULOCYTE COUNT PCT (BEAKER) (test 5.0 % 0.5-1.7 H code = 575) Telecom Coordinator ID - 6000HIV-1 Antigen with HIV-1/2 Drgboekq5879-04-33 12:17:00 Test Item Value Reference Range Interpretation Comments HIV-1 Antigen with HIV Nonreactive Nonreactive 1&2 Antibody (test code = 51367-5) VALENTE (test code = VALENTE) Telecom Coordinator ID - TUAN C Lab Interpretation (test Normal code = 29779-2) [facility] CenterHIV-1 ANTIGEN WITH HIV-1/2 LJUFBSHZ8921-01-28 12:17:00 Test Item Value Reference Range Interpretation Comments HIV-1 ANTIGEN WITH HIV 1\\T\\2 Nonreactive Nonreactive ANTIBODY (2) (BEAKER) (test code = 2586) Telecom Coordinator ID - TUAN PQqjqqyowszi7062-39-07 12:02:00 Test Item Value Reference Range Interpretation Comments Haptoglobin (test code = <8 14-258 L 4542-7) VALENTE (test code = VALENTE) Telecom Coordinator ID - TUAN C Lab Interpretation (test Abnormal code = 35766-1) [facility] CenterHAPTOGLOBIN2020-06-21 12:02:00 Test Item Value Reference Range Interpretation Comments HAPTOGLOBIN (BEAKER) (test code = < mg/dL 14-258 L 366) Telecom Coordinator ID - TUAN CHemoglobin [id number] 09:01:00 Test Item Value Reference Range Interpretation Comments Hemoglobin A1C (test code = 4548-4) <3.8 4.3-6.1 L Lab Interpretation (test code = Abnormal 27785-8) [facility] CenterHEMOGLOBIN [id number] 09:01:00 Test Item Value Reference Range Interpretation Comments HEMOGLOBIN A1C (BEAKER) (test code = < % 4.3-6.1 L 368) U/S, ABDOMINAL, WITH [id number] 07:32:00Referring: Dr. Rowyd Mccarthy Reason for exam:->liver transplant evaluation, cirrhosis [...] the main portal vein. Signed: Albaro Alvarado Verified Date/Time: 01/16/2020 07:32:01 Reading Location: [address] Transitional Reading Room US abdominal with saicveg4760-43-07 07:32:00Interface, External Ris In - 01/16/2020 7:34 [...] flow in the main portal vein. Signed: Wells, Albaro MDReport Verified Date/Time: 01/16/2020 07:32:01 Reading Location: [facility] C013T Transitional Reading Room [facility] HospitalBASIC METABOLIC [id number] 04:41:00 Test Item Value Reference Range Interpretation [...] S NOT APPLICABLE FOR DIALYSIS PATIEN TS. Telecom Coordinator ID - PIAYA LSpecimen moderately gtezkbqTGIGICZBD6327-17-20 04:38:00 Test Item Value Reference Range Interpretation Comments MAGNESIUM (BEAKER) (test code = 2.3 mg/dL 1.6-2.6 627) Telecom Coordinator ID - PIAYA LHEPATIC FUNCTION [id number] 04:38:00 Test Item Value Reference Range Interpretation [...] (test code = 9 U/L 6-55 347) Telecom Coordinator ID - MITCH Jane moderately ictericPROTHROMBIN TIME/NSW0301-40-11 04:36:00 Test Item Value Reference Range Interpretation [...] mechanical heart valves.CBC W/PLT COUNT & AUTO [id number] 04:29:00 Test Item Value Reference Range Interpretation [...] (BEAKER) (test code = 2801) Carotid doppler rgwdrryoc5956-77-32 00:34[facility]ART[facility] MKCKESSON CPACSRight Impression1. The internal, [...] AM CDTPV LAB - [facility] Patient Name CICI CALDERON Date of Study 01/15/2020 ALYSE Age 64 Visit Number [id number] Gender Female Accession Number [id number] Date of 1955 Referring [facility] Room Number 1515 Physician Dietetics Director Herbert Lechuga Interpreting Chelsea Resendez T Physician [...] + + + - Additional Measurements:ICAPSV/CCAPSV 0.96.ICAEDV/CCAEDV 1.52.[facility] CenterBlood typing, automated - - at seperate draw time from initial type and ircwjf2155-25-44 20:34:00 Test Item Value Reference Range Interpretation Comments ABO/RH AUTOMATED (BEAKER) (test A POSITIVE code = 2260) [facility]42020-06-20 18:08:00 Test Item Value Reference Range Interpretation Comments T4, Total (test code = 4.3 ug/dL 4.9-11.7 L 3026-2) VALENTE (test code = VALENTE) Telecom Coordinator ID - NTP Lab Interpretation (test Abnormal code = 15238-6) [facility] CenterT42020-06-20 18:08:00 Test Item Value Reference Range Interpretation Comments T4 TOTAL (BEAKER) (test code = 895) 4.3 ug/dL 4.9-11.7 L Telecom Coordinator ID - OXURnzgflwb3392-24-67 18:07:00 Test Item Value Reference Range Interpretation Comments Ferritin (test code = 489.86 ng/mL 5-275 H 2276-4) VALENTE (test code = VALENTE) Telecom Coordinator ID - NTP Lab Interpretation (test Abnormal code = 86302-1) [facility] CenterFERRITIN2020-06-20 18:07:00 Test Item Value Reference Range Interpretation Comments FERRITIN (KIRK) (test code = 489.86 ng/mL 5.00-275.00 H 361) Telecom Coordinator ID - NTPCT, CHEST, WITHOUT [id number] 17:57:00Referring: Dr. Reno SweattFINAL REPORT CT of [...] [place] Verified Date/Time: 01/15/2020 17:57:54 Reading Location: [address] Consult Reading Room CT chest without IV ruraywae0443-11-31 17:57:00Interface, External Ris In - 01/15/2020 6:00 [...] MDReport Verified Date/Time: 01/15/2020 17:57:54 Reading Location: [facility] C013X Ortho Consult Reading Room [facility] 2020-01-15 17:27:00 Test Item Value Reference Range Interpretation Comments TSH (test code = 12230-9) 5.549 0.350- 4.940 uIU/mL H VALENTE (test code = VALENTE) Telecom Coordinator ID - DB Lab Interpretation (test Abnormal code = 93087-9) [facility] CenterVitamin D, 61-Waxbwrf2240-45-20 17:27:00 Test Item Value Reference Range Interpretation Comments Vitamin D 25-Hydroxy 6.2 ng/mL 6.6-49.9 L (test code = 2764) VALENTE (test code = VALENTE) Effective 05/07/2017: Reference Range ChangeNew: 6.6-49.9 ng/mL Previous: 13.0-47.8 ng/mL Recommended Vitamin D Target Range: 30.0-40.0 ng/mLOperator ID - DB Lab Interpretation (test Abnormal code = 86941-7) [facility] CenterVITAMIN D, 45-[id number] 17:27:00 Test Item Value Reference Range Interpretation Comments VITAMIN D 25-OH (BEAKER) (test code 6.2 ng/mL 6.6-49.9 L = 2764) Effective 05/07/2017: Reference Range ChangeNew: 6.6-49.9 ng/mL Previous: 13.0-47.8 ng/mLRecommended Vitamin D Target Range: 30.0-40.0 ng/mLOperator ID - [id number] 17:27:00 Test Item Value Reference Range Interpretation Comments THYROID STIMULATING HORMONE 5.549 uIU/mL 0.350-4.940 H (BEAKER) (test code = 772) Telecom Coordinator ID - DBALPHA FETOPROTEIN (AFP), TUMOR [id number] 17:27:00 Test Item Value Reference Range Interpretation Comments ALPHA-FETOPROTEIN (BEAKER) (test code < ng/mL <10.0 = 1094) Telecom Coordinator ID - DBHepatitis B surface txeghki7544-02-35 17:25:00 Test Item Value Reference Range Interpretation Comments HBsAg Screen (test code Nonreactive Nonreactive = 5195-3) VALENTE (test code = VALENTE) Specimen is considered negative for HBsAg. Lab Interpretation (test Normal code = 58626-9) [facility] CenterHepatitis B surface wwttzsim1357-48-73 17:25:00 Test Item Value Reference Range Interpretation Comments Hep B S Ab (test code = 25.0 <8.0 mIU/mL H 87872-4) VALENTE (test code = VALENTE) Telecom Coordinator ID - DB Lab Interpretation (test Abnormal code = 79156-0) [facility] CenterHepatitis C yygfygiy0109-77-70 17:25:00 Test Item Value Reference Range Interpretation Comments Hepatitis C Ab (test code = Nonreactive Nonreactive 73489-2) VALENTE (test code = VALENTE) Telecom Coordinator ID - DB Lab Interpretation (test Normal code = 55168-7) [facility] CenterHESAINT JOSEPH BEREATIS B SURFACE [id number] 17:25:00 Test Item Value Reference Range Interpretation Comments HEPATITIS B SURFACE ANTIGEN (2) Nonreactive Nonreactive (BEAKER) (test code = 2585) Specimen is considered negative for HBsAg.HEPATITIS B SURFACE [id number] 17:25:00 Test Item Value Reference Range Interpretation Comments HEPATITIS B SURFACE ANTIBODY 25.0 mIU/mL <8.0 H (BEAKER) (test code = 647) Telecom Coordinator ID - DBHEPATITIS C [id number] 17:25:00 Test Item Value Reference Range Interpretation Comments HEPATITIS C ANTIBODY (BEAKER) Nonreactive Nonreactive (test code = 367) Telecom Coordinator ID - DBCarcinoembryonic Antigen (CEA)2020-01-15 17:23:00 Test Item Value Reference Range Interpretation Comments CEA, SERUM (test code = 7.9 ng/mL 0-5 H 2038-) VALENTE (test code = VALENTE) Telecom Coordinator ID - DB Lab Interpretation (test Abnormal code = 03684-5) [facility] CenterHepatitis B core antibody, [id number] 17:23:00 Test Item Value Reference Range Interpretation Comments Hep B C IgM (test code = Nonreactive Nonreactive 38235-5) VALENTE (test code = VALENTE) Telecom Coordinator ID - DB Lab Interpretation (test Normal code = 91714-9) [facility] CenterHepatitis A antibody, [id number] 17:23:00 Test Item Value Reference Range Interpretation Comments Hep A IgM (test code = Nonreactive Nonreactive 88562-8) VALENTE (test code = VALENTE) Telecom Coordinator ID - DB Lab Interpretation (test Normal code = 25700-1) [facility] CenterCARCINOEMBRYONIC ANTIGEN (CEA)2020-01-15 17:23:00 Test Item Value Reference Range Interpretation Comments CARCINOEMBRYONIC ANTIGEN (BEAKER) 7.9 ng/mL 0.0-5.0 H (test code = 685) Telecom Coordinator ID - DBHEPATITIS B CORE ANTIBODY, [id number] 17:23:00 Test Item Value Reference Range Interpretation Comments HEPATITIS B CORE IGM ANTIBODY Nonreactive Nonreactive (BEAKER) (test code = 645) Telecom Coordinator ID - DBHEPATITIS A ANTIBODY, [id number] 17:23:00 Test Item Value Reference Range Interpretation Comments HEPATITIS A IGM ANTIBODY (BEAKER) Nonreactive Nonreactive (test code = 498) Telecom Coordinator ID - DBRAD, MANDIBLE, MIN 4 [id number] 17:22:00Referring: Dr. Rowdy Zhang for exam:->liver transplant [...] Alvarado Verified Date/Time: 01/15/2020 17:22:12 Reading Location: [address] Transitional Reading Room XR mandible min 4 [id number] 17:22:00Interface, External Ris In - 01/15/2020 5:24 [...] Alvarado Verified Date/Time: 01/15/2020 17:22:12 Reading Location: [address] Transitional Reading [facility] CenterRAD, CHEST, 2 [id number] 17:16:00Referring: Dr. Rowdy Zhang for exam:->liver transplant [...] Alvarado Verified Date/Time: 01/15/2020 17:16:49 Reading Location: [address] Transitional Reading Room XR chest 2 [id number] 17:16:00Interface, External Ris In - 01/15/2020 5:19 [...] MDReport Verified Date/Time: 01/15/2020 17:16:49 Reading Location: [address] Reading Room [facility] 2D Echo W/Doppler(CW/PW/Color)2020-01-15 17:15:41Ejection FractionSLEH ECHO HEARTLAB MKCKESSON CPACSInterface, External Ris In - 01/15/2020 5:15 PM C DTTransthoracic Echocardiography Report (TTE) Demographics Patient Name CICI CALDERON Date of Study 01/15/2020 ALYSE Gender Female Visit Number [id number] Race Unknown Room Number 1515 Number Date of 1955 Referring Physician Ren Hernandez MD Age 64 year(s) Dietetics Director Lisa Bautista [facility] Interpreting Jai Arreguin MD Physician [...] LVOT CO: 7.05 l/min LVOT CI: 3.67 l/min/m^2CKaiser Permanente Medical CenterCOMPREHENSIVE METABOLIC [id number] 17:06:00 Test Item Value Reference Range Interpretation [...] S NOT APPLICABLE FOR DIALYSIS PATIEN TS. Telecom Coordinator ID - NTPSpecimen moderately rwkhydrNxzresxqjf0954-40-33 17:03:00 Test Item Value Reference Range Interpretation Comments Fibrinogen (test code = 3255-7) 114 mg/dl 225-434 L Lab Interpretation (test code = Abnormal 42525-0) [facility] CenterFIBRINOGEN2020-06-20 17:03:00 Test Item Value Reference Range Interpretation Comments FIBRINOGEN LEVEL (BEAKER) (test 114 mg/dl 225-434 L code = 658) Ebcsxqgbttz6942-62-52 17:00:00 Test Item Value Reference Range Interpretation Comments Transferrin (test code = 102 mg/dL 174-382 L 3034-6) VALENTE (test code = VALENTE) Telecom Coordinator ID - DBSpecimen moderately icteric Lab Interpretation (test Abnormal code = 28191-3) [facility] Center[facility], TIBC, % sat. (without ferritin)2020-01-15 17:00:00 Test Item Value Reference Range Interpretation Comments Iron (test code = 2498-4) 144.0 ug/dL 40-160 TIBC (test code = 2500-7) 129 ug/dL 250-450 L Iron % Saturation (test code 112 % 20-55 H = 2502-3) VALENTE (test code = VALENTE) Telecom Coordinator ID - DB Lab Interpretation (test Abnormal code = 74335-8) [facility] CenterTRANSFERRIN2020-06-20 17:00:00 Test Item Value Reference Range Interpretation Comments TRANSFERRIN (BEAKER) (test code = 102 mg/dL 174-382 L 541) Telecom Coordinator ID - DBSpecimen moderately ictericIRON, TIBC, % SAT. (WITHOUT FERRITIN) 2020-01-15 17:00:00 Test Item Value Reference Range Interpretation Comments IRON (BEAKER) (test code = 547) 144.0 ug/dL 40.0-160.0 TOTAL IRON BINDING CAPACITY 129 ug/dL 250-450 L (BEAKER) (test code = 769) IRON % SATURATION (2) (BEAKER) 112 % 20-55 H (test code = 2590) Telecom Coordinator ID - LYDgzad-3-bmgkrfqlwcg9414-06-20 16:59:00 Test Item Value Reference Range Interpretation Comments A-1 Antitrypsin (test code = 121.20 mg/dL 90-200 1825-9) VLAENTE (test code = VALENTE) Telecom Coordinator ID - DB Lab Interpretation (test Normal code = 24087-7) [facility] CenterBILIRUBIN, [id number] 16:59:00 Test Item Value Reference Range Interpretation Comments BILIRUBIN DIRECT 1.6 mg/dL 0.1-0.5 H Specimen sl ightly (BEAKER) (test code = hemoly zed 706) Telecom Coordinator ID - QVEIZXPW-0-NGDCCAOFRRZ6777-06-20 16:59:00 Test Item Value Reference Range Interpretation Comments ALPHA-1 ANTITRYPSIN (BEAKER) 121.20 mg/dL 90.00-200.00 (test code = 502) Telecom Coordinator ID - [id number] 16:58:00 Test Item Value Reference Range Interpretation Comments Ethanol Lvl (test code = <10 <=10 mg/dL 5643-2) VALENTE (test code = VALENTE) Telecom Coordinator ID - DB Lab Interpretation (test Normal code = 47550-8) [facility] CenteraPTT2020-06-20 16:58:00 Test Item Value Reference Range Interpretation Comments PTT (test code = 71879-2) 36.8 22.5- 36.0 seconds H Lab Interpretation (test code = Abnormal 01387-6) [facility] CenterAPTT2020-06-20 16:58:00 Test Item Value Reference Range Interpretation Comments PARTIAL THROMBOPLASTIN TIME 36.8 seconds 22.5-36.0 H (BEAKER) (test code = 760) [id number] 16:58:00 Test Item Value Reference Range Interpretation Comments ETHANOL (BEAKER) (test code = 400) < mg/dL <=10 Telecom Coordinator ID - DBPROTHROMBIN TIME/[id number] 16:57:00 Test Item Value Reference Range Interpretation [...] is2.5-3.5 for patients wiht mechanical heart valves.CALCIUM, [id number] 16:45:00 Test Item Value Reference Range Interpretation Comments CALCIUM IONIZED (BEAKER) (test 1.08 mmol/L 1.12-1.27 L code = 698) PH, BLOOD (BEAKER) (test code = 7.38 1810) CREATININE, RANDOM [id number] 13:46:00 Test Item Value Reference Range Interpretation Comments CREATININE URINE (BEAKER) (test 280.7 mg/dL code = 375) Reference Range: No NormalsOperator ID - NTPSODIUM, RANDOM [id number] 13:46:00 Test Item Value Reference Range Interpretation Comments SODIUM URINE (BEAKER) (test code = < meq/L 243) Reference Range: No NormalsOperator ID - NTPHepatitis panel, [id number] 13:05:00 Test Item Value Reference Range Interpretation Comments Hep A IgM (test code = Nonreactive Nonreactive 41772-7) Hep B C IgM (test code = Nonreactive Nonreactive 51668-6) Hepatitis C Ab (test code = Nonreactive Nonreactive 78588-5) HBsAg Screen (test code = Nonreactive Nonreactive 5195-3) VALENTE (test code = VALENTE) Telecom Coordinator ID - NTP Lab Interpretation (test Normal code = 52127-5) [facility] CenterHEPATITIS PANEL, [id number] 13:05:00 Test Item Value Reference Range Interpretation Comments HEPATITIS A IGM ANTIBODY (BEAKER) Nonreactive Nonreactive (test code = 498) HEPATITIS B CORE IGM ANTIBODY Nonreactive Nonreactive (BEAKER) (test code = 645) HEPATITIS C ANTIBODY (BEAKER) Nonreactive Nonreactive (test code = 367) HEPATITIS B SURFACE ANTIGEN (2) Nonreactive Nonreactive (BEAKER) (test code = 2585) Telecom Coordinator ID - NTPLipid [id number] 11:51:00 Test Item Value Reference Range Interpretation Comments Triglycerides (test 86 mg/dL code = 2571-8) Cholesterol (test code 101 mg/dL = 2093-3) HDL (test code = 12 mg/dL 2085-9) LDL Calculated (test 72 mg/dL code = 12471-0) VALENTE (test code = VALENTE) Triglyceride Reference Range: Low Risk <150 Borderline 150-199 High Risk 200-499 Very High Risk >=500 Cholesterol Reference Range: Low Risk <200 Borderline 200-239 High Risk >240 HDL Cholesterol Reference Range: Low Risk >=60 High Risk <40 LDL Cholesterol Reference Range: Optimal <100 Near Optimal 100-129 Borderline 130-159 High 160-189 Very High >=190 Telecom Coordinator ID - NTPSpecimen moderately icteric [facility] CenterGamma Glutamyl Transferase (GGT)2020-01-15 11:51:00 Test Item Value Reference Range Interpretation Comments GGT (test code = 2324-2) 15 U/L 9-64 VALENTE (test code = VALENTE) Telecom Coordinator ID - NTPSpecimen moderately icteric Lab Interpretation (test Normal code = 06233-6) [facility] CenterUric [id number] 11:51:00 Test Item Value Reference Range Interpretation Comments Uric Acid (test code = 15.7 mg/dL 2.6-7.2 H 3084-1) VALENTE (test code = VALENTE) Telecom Coordinator ID - NTPSpecimen moderately icteric Lab Interpretation (test Abnormal code = 93040-8) [facility] CenterURIC [id number] 11:51:00 Test Item Value Reference Range Interpretation Comments URIC ACID (BEAKER) (test code = 15.7 mg/dL 2.6-7.2 H 773) Telecom Coordinator ID - NTPSpecimen moderately ictericLIPID [id number] 11:51:00 Test Item Value Reference Range Interpretation [...] Borderline 130-159 High 160-189 Very High >=190 Telecom Coordinator ID - NTPSpecimen moderately [id number] 11:51:00 Test Item Value Reference Range Interpretation Comments PHOSPHORUS (BEAKER) (test code = 4.5 mg/dL 2.3-4.7 604) Telecom Coordinator ID - NTPGAMMA GLUTAMYL TRANSFERASE (GGT)2020-01-15 11:51:00 Test Item Value Reference Range Interpretation Comments GAMMA GLUTAMYL TRANSFERASE (BEAKER) 15 U/L 9-64 (test code = 364) Telecom Coordinator ID - NTPSpecimen moderately ictericCBC W/PLT COUNT & AUTO [id number] 11:25:00 Test Item Value Reference Range Interpretation [...] CONCENTRATION Decreased (CELLAVISION)(BEAKER) (test code = 3438) Telecom Coordinator ID - 6000Operator ID - Ana Laura James comments: Slide comments: [id number] 10:20:00 Test Item Value Reference Range Interpretation Comments MAGNESIUM (BEAKER) (test code = 2.2 mg/dL 1.6-2.6 627) Telecom Coordinator ID - [id number] 08:57:00 Test Item Value Reference Range Interpretation Comments Ammonia (test code = 19 18- 72 mol/L 83851-9) VALENTE (test code = VALENTE) Telecom Coordinator ID - NTP Lab Interpretation (test Normal code = 04551-1) [facility]2020-06-20 08:57:00 Test Item Value Reference Range Interpretation Comments AMMONIA (BEAKER) (test code = 348) 19 mol/L 18-72 Telecom Coordinator ID - NTPHEPATIC FUNCTION [id number] 05:21:00 Test Item Value Reference Range Interpretation [...] (test code = 12 U/L 6-55 347) Telecom Coordinator ID - DALTON MSpecimen moderately ictericBASIC METABOLIC [id number] 05:15:00 Test Item Value Reference Range Interpretation [...] S NOT APPLICABLE FOR DIALYSIS PATIEN TS. Telecom Coordinator ID - DALTON MSpecimen moderately ictericPROTHROMBIN [id number] 04:37:00 Test Item Value Reference Range Interpretation [...] Detected Not Detected, (test code = Negative 46619-1) SARS-COV-2 [facility] PERFORMING LAB (test code = 62181-7) VALENTE (test code = Negative results do [...] of the Act. Fact Sheet for Healthcare Providers:https://www.ZenDoc.Exepron/Documents/Xper t%20Xpress%20SARS%20CoV- 2/Fact%20Sheets/302-3802 %44CSJC-NHO-8%20HEALTHCA RE%20PROVIDERS%20FACT%20 SHEET.pdf Fact Sheet for Healthcare Patients:https://www.makr/Documents/Xpert %20Xpress%20SARS%20CoV-2 /Fact%20Sheets/302-3801% 62CNKS-CXO-2%20PATIENT%2 0FACT%20SHEET.pdf Performing Laboratory:[facility] [facility] [place] [address] [facility])2020-01-15 01:48:00 Test Item Value Reference Range Interpretation Comments SARS-COV2/RT-PCR (test Not Detected Not Detected, Negative code = 9152234) SARS-COV-2 PERFORMING LAB [facility] (test code = 3560200) Negative results do not preclude SARS-CoV-2 infection [...] of the Act.Fact Sheet for Healthcare Pro viders:https://www.Gini & Jony/Documents/Xpert%20Xpress%20SARS%20CoV-2/Fact%20Sh eets/302-3802%60XCOX-QIY-0%20HEALTHCARE%20PROVIDERS%20FACT%20SHEET.pdfFact Sheet for Healthcare Patients:https://www.LawPath.com/Documents/Xpert%20Xpress%20SARS%20CoV-2/Fact%20Sheets/302-3801%20SARS-COV -2%20PATIENT%20FACT%20SHEET.pdfPerforming Laboratory:[facility] [place], [place] [address]AZKSP METABOLIC [id number] 22:40:00 Test Item Value Reference Range Interpretation [...] S NOT APPLICABLE FOR DIALYSIS PATIEN TS. Telecom Coordinator ID - DBSpecimen moderately ictericHEPATIC FUNCTION [id number] 22:39:00 Test Item Value Reference Range Interpretation [...] Specimen slightly (test code = 347) hemolyzed Telecom Coordinator ID - DBSpecimen moderately ictericPROTHROMBIN [id number] 22:28:00 Test Item Value Reference Range Interpretation [...] mechanical heart valves.CBC W/PLT COUNT & AUTO [id number] 22:22:00 Test Item Value Reference Range Interpretation [...] code = 2801) ALPHA FETOPROTEIN (AFP), TUMOR [id number] 18:31:00 Test Item Value Reference Range Interpretation Comments ALPHA-FETOPROTEIN (BEAKER) (test code < ng/mL <10.0 = 1094) Telecom Coordinator ID - DBBASIC METABOLIC [id number] 15:23:00 Test Item Value Reference Range Interpretation [...] S NOT APPLICABLE FOR DIALYSIS PATIEN TS. Telecom Coordinator ID - BSPlease sent STATSpecimen moderately ictericHEPATIC FUNCTION [id number] 15:18:00 Test Item Value Reference Range Interpretation [...] (test code = 17 U/L 6-55 347) Telecom Coordinator ID - BSPlease sent STATSpecimen moderately ictericPROTHROMBIN [...] valves.Please sent STATCBC W/PLT COUNT & AUTO [id number] 15:05:00 Test Item Value Reference Range Interpretation [...] (BEAKER) (test code = 2801) CT, ABDOMEN, [id number] 15:58:00Referring: Dr. Rowdy LopestFINAL REPORT CT OF THE ABDOMEN CLINICAL HISTORY: [...] MDReport Verified Date/Time: 05/02/2017 15:58:35 Reading Location: [place] [id number] CT Body Reading Room CBC W/PLT COUNT & AUTO [id number] 17:30:00 Test Item Value Reference Range Interpretation [...] code = 417) 0.00ALPHA FETOPROTEIN (AFP), TUMOR [id number] 16:31:00 Test Item Value Reference Range Interpretation Comments ALPHA-FETOPROTEIN (BEAKER) (test 3.3 ng/mL <10.0 code = 1094) Effective 06/14/2014: Reference Range ChangeNew: <10.0 Previous: 0.0-8.0 BASIC METABOLIC [id number] 16:13:00 Test Item Value Reference Range Interpretation [...] FOR DIALYSIS PATIEN TS. Specimen slightly ictericLIPID [id number] 16:13:00 Test Item Value Reference Range Interpretation [...] Very High >=190 Specimen slightly ictericHEPATIC FUNCTION [id number] 16:13:00 Test Item Value Reference Range Interpretation [...] (test code = 364) Specimen slightly ictericPROTHROMBIN [id number] 16:13:00 Test Item Value Reference Range Interpretation [...]
--- OUTSIDE RECORDS SUMMARY | 2020-05-10 08:49 | XMS REPORT ---
[...] Status Dosage System Date Date Gabapentin ND 41868350113 100 MG Orally January Active 1 c apsule Once a day 2019 Lactulose ND 05947279323 20 GM/30ML Active 15 ml Orally Once a day Cimetidine ND 84025888901 200 MG Orally Active 1 t ablet as Once a day needed Albuterol ND 54791785319 108 (90 Base) October Active 1 pu ff as Sulfate HFA MCG/ACT 09, needed Inhalation 2019 every 6 hrs Calcitriol ND 07862307182 0.5 MCG Orally Active 1 capsule Once a day Triamcinolone ND 70424388241 0.1 % January Active 1 appl ication Acetonide Externally , Twice a day 2019 Results No Known Results Immunizations Vaccine Administration Date Hepatitis A (adult) February 21, 2020 Hepatitis B (adult) February 21, 2020 Summary Purpose eClinicalWorks Submission
--- OUTSIDE RECORDS SUMMARY | 2020-05-10 08:50 | XMS REPORT ---
:1955 Author Organization [facility] Address 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 ALLERGIES Allergen (clinical Drug/Non Drug Reaction Allergy Type Onset Date S tatus drug ingredient) Allergy documented on EMR Sulfa hives Drug Allergy Active Levaquin vomiting/diarrh Drug Allergy Active ea erythromycin Erythromycin(NDC vomiting/diarrh Drug Allergy Active Code:[address]-61) ea tetracycline Tetracycline hives Drug Allergy Active HCl([facility] [place] Code:[address]-09) ENCOUNTERS from 1955 to 2020-05-03 Encounter Location Date Provider Diagnosis [facility] [address] Apr, Mitzy English Medicare annual Family Medicine [place] wellness visit, [address] subsequent Z00. 00 IMMUNIZATIONS Vaccine Route Administration Date Status Hepatitis B (adult) Unknown February 21, 2020 Administered Hepatitis A (adult) Unknown February 21, 2020 Administered Prevnar 13 (PCV13) IM Intramuscular Apr 19, 2020 Administered SOCIAL HISTORY Tobacco Use: Social History Observation Description Date Details (start date - stop date) Former Smoker Sex Assigned At : Social History Observation Description Sex Assigned At Unknown Alcohol Screen Question Answer Notes Did you have a drink containing alcohol in the past year? No Points 0 Interpretation Negative Tobacco Use/Smoking Question Answer Notes Are you a former smoker REASON FOR REFERRAL No Information VITAL SIGNS Height 63.5 in Apr, Weight 177.2 lbs Apr, Temperature 97.0 degrees Fahrenheit Apr, BMI 30.89 kg/m2 Apr, Oximetry 99 % Apr, Blood pressure systolic 113 mm Hg Apr, Blood pressure diastolic 51 mm Hg Apr, MEDICATIONS Medication SIG (Take, Route, Start Date End Date Status Frequency, Duration) MagOx 400 400 (241.3 Mg) MG 1 tablet with food Orally Active Once a day for 30 day(s) Calcitriol 0.5 MCG 1 capsule Orally Once a Active day for 30 day(s) Cimetidine 200 MG 1 tablet as needed Orally Active Once a day Xifaxan 550 MG 1 tablet Orally Twice a Ac tive day for 30 day(s) Folic Acid 0.8 MG 1 tablet Orally Once a Active day Gabapentin 100 MG 1 capsule Orally Once a Jan, Active day for 30 day(s) Pantoprazole Sodium 40 MG 1 tablet Orally Once a Active day for 30 day(s) Lactulose 20 GM/30ML 15 ml Orally Once a day Active for 30 Triamcinolone Acetonide 0.1 1 application Externally Jan, Not-Taking % Twice a day for 30 days Albuterol Sulfate HFA 108 1 puff as needed Oct, Active (90 Base) MCG/ACT Inhalation every 6 hrs for 30 days PROCEDURES No Information RESULTS No Results REASON FOR VISIT Wellness Exam/[employer] [phone], Subsequent Annual Wellness Visit (AWV) MEDICAL (GENERAL) HISTORY Type Description Date Medical History GERD without esophagitis Medical History ARAUZ (nonalcoholic steatohepatitis) Medical History Urinary tract infection, site not specif ied Medical History Hematuria, unspecified Medical History Acute cystitis with hematuria Surgical History partial hysterectomy 1984 Surgical History ovarian cyst removal 1991 Surgical History ovary removal 1994 Surgical History knee repair 2012 Hospitalization History ARAUZ flare up 2019 Goals Section No Information Health Concerns No Information MEDICAL EQUIPMENT No Information MENTAL STATUS No Information FUNCTIONAL STATUS No Information ASSESSMENTS Encounter Date Diagnosis Notes Apr, Medicare annual wellness visit, subseque nt (ICD-10 - Z00.00) PLAN OF TREATMENT Next Appt Details SUBSEQUENT ANNUAL WELLNESS VISIT 1 YEAR Reason: Provider Name:Mitzy English, 2020-07-19 10 :40:00 AM, [address], [address], [place], [address], Insurance Providers Payer Name Payer Payer Insured Patient Coverage Coverage End Address Phone Name Relationship to Start Date Ramirez e Insured [employer] [phone] Irma Christian self MEDICARE PPO [id number] [place] [address]
--- OUTSIDE RECORDS SUMMARY | 2020-05-10 08:50 | XMS REPORT ---
[...] Status Dosage System Date Date Xixa [facility] 37147876219 550 MG Orally Active 1 tabl et Twice a day Folic Acid ND 93309689066 1 MG Orally Active 1 tab let Once a day Spironolactone [facility] 53571790213 25 MG Orally Active 1 tablet Vitamin D2 [facility] 00627303361 10 MCG (400 Active 2 tab lets UNIT) Orally Once a day Albuterol Sulfate [facility] 53620430565 108 (90 Base) October Acti ve 1 puff as HFA MCG/ACT , needed Inhalation 2019 every 6 hrs Calcitriol [facility] 00959489778 0.5 MCG Orally Active 1 capsule Once a day MagOx 400 [facility] 91600899763 400 (241.3 Mg) Active 1 t ablet MG Orally Once with food a day Lactulose [facility] 37775171965 20 GM/30ML Active 15 ml Orally Once a day Tramadol HCl [facility] 44289042056 50 MG Orally Active 1 tablet as Once a day needed Midodrine HCl [facility] 99334773766 2.5 MG Orally Active 1 tablet Three times a day Cimetidine [facility] 54557235721 200 MG Orally Active 1 t ablet as Once a day needed Pantoprazole [facility] [address]-26 40 MG Orally Active 1 packet Sodium Once a day mixed with apple juice or applesauce Results No Known Results Summary Purpose eClinicalWorks Submission
[2020-05-10 09:11] VITALS: O2SAT 100
[2020-05-10 09:12] VITALS: BMI 30.5
--- NOTE | 2020-05-10 11:56 | RAD REPORT ---
EXAM DESCRIPTION: US - Paracentesis Proc Guidance - 05/10/2020 10:27 am CLINICAL HISTORY: Ascites COMPARISON: Multiple prior paracentesis procedures. TECHNIQUE: The patient presents for ultrasound-guided paracentesis. The procedure, risks and altern atives were discussed with the patient in detail. Oral and written consent were obtained. Time out p rocedure was performed. The patient had no contraindicated allergy or medication history. PT, INR va lues within acceptable limits. Platelet count was 76. Preliminary sonographic evaluation identified right lower quadrant access site. The skin and deeper tissues were anesthetized with 1 percent lidocaine. Under direct sonographic visualization, a parace ntesis catheter was advanced into the peritoneal cavity. Approximately 15 mL of ascites retained for requested laboratory studies. Large volume drainage was initiated. Drainage. After approximately [address] No equipment malfunction was identifiable. Patient and catheter positioning adjustments did not yield any further flow of ascites. Sonographic evaluation showed large volume of this ascites remaini ng. The catheter was removed. The patient was re- accessed with a second paracentesis catheter using the same procedure. Intraperitoneal positioning was confirmed. Large volume drainage was re-initiated . A total of 7 liters was removed on the second attempt. At the conclusion of the procedure, catheter was withdrawn and a bandage placed at the puncture site. Postprocedure care and precaution instructions were given to the patient. Patient was transferred to the same day surgery area for albumin infusion using referring physician protocol. IMPRESSION: Ultrasound-guided paracentesis as detailed. A small quantity of ascites was retained for requested laboratory studies. A total of 8 liters of asc ites removed.
[2020-05-10] MEDS ORDERED: ALBUMIN HUMAN 25% 300 ML IV ONE (12:12)
[2020-05-10 12:48] LABS: Appearance CLEAR (CLEAR); Body Fluid Source PERITONEAL; Body Fluid WBC 24 /mm^3; Color of fluid Yellow (COLORLESS)
[2020-05-10 17:23] VITALS: BP 96/40; TEMP 97.2
== END 2020-05-10 13:12 | disposition home or self-care (01) ==
LOC: DS 08:35
PROVIDERS: ATTEND Internal Medicine Gastroenterology
DX: R18.8 Other ascites (principal); K70.0 Alcoholic fatty liver; K74.69 Other cirrhosis of liver; R14.0 Abdominal distension (gaseous)
CPT/HCPCS: 87070; 36415; 89050; 96365; 49083; P9047

== ENCOUNTER 2020-05-26 07:50 | Day surgery (SDC) | payer OTHER ==
--- OUTSIDE RECORDS SUMMARY | 2020-05-26 07:52 | XMS REPORT | Clinical Summary ---
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
--- OUTSIDE RECORDS SUMMARY | 2020-05-26 07:57 | XMS REPORT | Clinical Summary ---
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, unspecified hepatic cirrhosis type (HCC) 05/15/2020 Orders Only Transplant Hepatology Cary Talley Pre- transplant evaluation for liver transplant; FRANCISCA Dodson 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, unspecified hepatic cirrhosis type (HCC) 05/15/2020 Documentation Transplant HepatCadence Estes 05/10/2020 Documentation Transplant Hepatology Cary Talley RN 05/09/2020 Documentation Transplant Hepatology Tata Hernandez 05/09/2020 Orders Only Transplant Hepatology David, Pre-tr ansplant evaluation for liver transplant; Tata Ledesma 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, unspecified hepatic cirrhosis type (HCC) 05/05/2020 Documentation Transplant Hepatology Hamilton, Jose Migueleyblake 05/03/2020 Documentation Transplant Hepatology Cary Talley RN 05/02/2020 Documentation Transplant Hepatology Hamilton, Jose Migueleyl 04/20/2020 Documentation Transplant Hepatology Hamilton, Jose Migueleyl 04/18/2020 Documentation Transplant Hepatology David, Mariaelena 04/18/2020 Documentation Transplant Hepatology Cary Talley RN 04/18/2020 Documentation Transplant Hepatology David, Mariaelena 04/18/2020 Documentation Transplant Hepatology David, Mariaelena 04/18/2020 Telephone Transplant Hepatology Cary Talley R, RN 04/17/2020 Orders Only Transplant Hepatology Cary Talley Pre- [...] ow-up R, RN 04/12/2020 Documentation Transplant Hepatology Alfonso Brigitte 04/11/2020 Hospital Encounter America, Kristofer Cirrhosis of [...] Cary Talley, RN 04/10/2020 Documentation Transplant Hepatology Alfonso, Micheyl 04/10/2020 Documentation Transplant Hepatology Hamilton, Micheyl [...] R, RN 02/16/2020 Documentation Transplant Hepatology Hamilton, Micheyblake 02/16/2020 Documentation Transplant Hepatology Hamilton, Micheyl 02/16/2020 [...] liver failure without hepatic coma ; Kristofer Cross; MD Nhi Pre-transplant evaluation for liver transplant; Acute and subac [place] hepatic failure with coma (HCC) 02/15/2020 Telephone Transplant Hepatology Cary Talley meld update R, RN 02/15/2020 Telephone Transplant Hepatology Cary Talley othe r R, RN 02/15/2020 Orders Only Transplant Hepatology Areli Hein RN 02/14/2020 Documentation Transplant Hepatology Hamilton, Micheyl 02/11/2020 Telephone Hepatology Genesis Acevedo, Dai Goncalves [...] Orders Only Hepatology Larry, Line Hepatic Kastrup, CHAINSTITCH TUNNEL ELASTIC OPERATOR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) 02/03/2020 Documentation Hepatology Kristofer Cross MD 02/02/2020 Telephone Transplant Hepatology Cary Talley R RN 02/01/2020 UNOS Charge Visit Transplant Hepatology Rito Saini irrhosis of liver Ildefonso Spencer MD without ascites , unspecified hep atic cirrhosis type (HCC) 02/01/2020 Documentation Transplant Hepatology Brigitte Hamilton 02/01/2020 Abstract Transplant Hepatology Cary Talley RN 02/01/2020 Telephone Hepatology PRIOR ITZEL Craven (XIF AXAN) Kimmie 02/01/2020 Orders Only Transplant Hepatology Cary Talley Pre- transplant evaluation for liver transplant (Primary Dx); R, RN 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, unspecified hepatic cirrhosis type (HCC) 02/01/2020 Telephone Transplant Hepatology Cary Talley Labs Only R RN 01/31/2020 Documentation Intensive Care Al-Atwood, Rudorcas Conrad 01/31/2020 Documentation Transplant Hepatology Cary Talley R RN 01/31/2020 Telephone Transplant Hepatology Cary Talley othe r R RN 01/31/2020 Telephone Transplant Hepatology Cary Talley endo crine clearance R, RN 01/21/2020 Abstract Transplant Hepatology Poonam Martínez 01/20/2020 Documentation Transplant Hepatology Poonam Martínez 01/20/2020 Abstract Transplant Hepatology Inge Salazar MA 01/19/2020 Surgery Nallely R & L CATH / MD Brian CORONARY ANGIOS (+/- LV) 01/18/2020 Outside Orders Radiology Mitzy English, CHAINSTITCH TUNNEL ELASTIC OPERATOR 01/17/2020 Anesthesia Event Gastroenterology Agatha Lr MD [...] Talley ening for malignant neoplasm (Primary Dx); R, RN Encounter for p re-transplant evaluation [...] Line Obesity (BMI 35.0-39.9 without comorbidity); Kastrup, CHAINSTITCH TUNNEL ELASTIC OPERATOR Adrenal mass, l eft ; Screening for m alignant neoplasm; Elevated serum creatinine; Other ascites 12/31/2019 Telephone Hepatology Dai Healy MA 12/21/2019 Documentation Hepatology Kadie Larry Kasjacki, CHAINSTITCH TUNNEL ELASTIC OPERATOR 12/17/2019 Abstract Hepatology Ivanna Healy MA 12/16/2019 Abstract Hepatology Janna Aparicio RN 12/16/2019 Abstract Hepatology Janna Aparicio RN 12/16/2019 Abstract Hepatology Janna Aparicio RN 12/15/2019 Audio - Hepatology Kadie Larry Portal hypert ension (Primary Dx); Telemedicine Kastrdayron, CHAINSTITCH TUNNEL ELASTIC OPERATOR 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); Obesity (BMI 35 .0-39.9 without comorbidity); Adrenal mass, l eft ; Screening for m alignant neoplasm 12/14/2019 Telephone Hepatology José Sahni Appointment [facility]IT [place] after 05/26/2019 Family History Medical History Relation Name Comments [...] 04/11/2020 9:39 AM CDT Plan of Treatment Date Type Specialty Care Team Description 07/11/2020 Appointment Radiology Kristofer Cross MD [address] [address] [phone] 07/11/2020 Follow-Up Transplant Hepatology Whitney Cross MD [address] [address] 0 [phone] Health Maintenance Due Date Last Done Comments BREAST CANCER SCREENING 1955 CERVICAL CANCER SCREENING PAP ONLY (Age 1207/08/1976 21-65) PNEUMOCOCCAL 65+ YRS (2 of 2 - PPSV23) 2019 0, 02/23/2020 Medicare IPPE (WELCOME TO MEDICARE) 07/28/2019 INFLUENZA VACCINE (#1) 2020 LIPID PANEL 01/14/2023 01/15/2020, 10/23/2016 COLON CANCER SCREENING COLONOSCOPY 01/16/2030 01/17/2020 Procedures Procedure Name Priority Date/Time Associated Comments Diagnosis BILIRUBIN, DIRECT STAT 05/17/2020 1:41 Pre-transplant Resu lts for this PM CDT evaluation for procedure are in liver transplant the results Cirrhosis of liver section. without ascites, unspecified hepatic cirrhosis type (HCC) CBC W/PLT COUNT & STAT 05/17/2020 1:41 Pre-transplant Resu lts for this AUTO DIFFERENTIAL PM CDT evaluation for procedur e are in liver transplant the results Cirrhosis of liver section. without ascites, unspecified hepatic cirrhosis type (HCC) COMPREHENSIVE STAT 05/17/2020 1:41 Pre-transplant Results for this METABOLIC PANEL PM CDT evaluation for procedure are in liver transplant the results Cirrhosis of liver section. without ascites, unspecified hepatic cirrhosis type (HCC) PROTHROMBIN TIME/INR STAT 05/17/2020 1:41 Pre-transplant R esults for this PM CDT evaluation for procedure are in liver transplant the results Cirrhosis of liver section. without ascites, unspecified hepatic cirrhosis type (HCC) BILIRUBIN, DIRECT STAT 05/09/2020 12:29 Pre-transplant Resu [...] procedure are i n the results section. [id number] AP Routine 01/19/2020 9:43 PHENOTYP PM CDT [...] 452 ms QTC Calculation(Bazett) 458 ms P [place] 59 degrees R [place] 32 degrees T [place] 56 degrees Normal sinus rhythm Normal ECG [...] procedure are i n the results section. [id number]\\, Routine 01/15/2020 4:17 Re sults for this [...] i n the results section. SARS-COV2/RT-PCR ([facility] STAT 01/14/2020 7:28 R esults [...] results hepatic cirrhosis section. type (HCC) after 05/26/2019 Results Prothrombin time/INR (05/17/2020 1:41 PM CDT)Only the most recent of24 results within the time period is included. Pathologist Sig nature INR 1.2 (H) [facility] Comment: Reference Range 0.9-1.1 Moderate-intensity Warfarin Therapy 2.0-3.0 Higher-intensity Warfarin Therapy 3.0-4.0 PT 12.3 (H) 9.0 - 11.5 sec [facility] Comment: For additional information, please refer to http://education.IncellDx/faq/EYW306 (This link is being provided for informational/ educational purposes only.) Specimen Blood Narrative Performed At FASTING:NO [facility] FASTING: NO Resulting Agency Comment Performing Organization Information: Site ID: [id number] Name: [facility] Address: [address] [place] [address] [place] [address] Director: Jj Carrasco Performing Organization Address City/State/Zipcode Phone Number [facility] [address] [place] [address] [facility] CBC with platelet count + automated diff (05/17/2020 1:41 PM CDT)Only the most recent of8 resultswithin the time period is included. Pathologist Sig nature WBC 3.4 (L) 3.8 - 10.8 [facility] Thousand/uL RBC 2.35 (L) 3.80 - 5.10 [facility] Million/uL Hemoglobin 8.5 (L) 11.7 - 15.5 g/dL [facility] Hematocrit 23.8 (L) 35.0 - 45.0 % [facility] MCV 101.3 (H) 80.0 - 100.0 fL [facility] MCH 36.2 (H) 27.0 - 33.0 pg [facility] MCHC 35.7 32.0 - 36.0 g/dL [facility] RDW 12.5 11.0 - 15.0 % [facility] Platelets 48 (L) 140 - 400 [facility] Thousand/uL MPV 10.9 7.5 - 12.5 fL [facility] # Neutros 1,863 1,500 - 7,800 [facility] cells/uL # Lymphs 986 850 - 3,900 [facility] cells/uL # Monos 320 200 - 950 [facility] cells/uL # Eos 211 15 - 500 cells/uL [facility] # Baso 20 0 - 200 cells/uL [facility] % Neutros 54.8 % [facility] % Lymphs 29.0 % [facility] % Monos 9.4 % [facility] % Eos 6.2 % [facility] % Baso 0.6 % [facility] Comment(s) [facility] Comment: Review of the peripheral smear reveals decreased numbers of platelets. Review of peripheral smear confirms automated results. Specimen Blood Narrative Performed At FASTING:NO [facility] FASTING: NO Resulting Agency Comment Performing Organization Information: Site ID: [id number] Name: [facility] Address: [address] [place] [phone] Director: Jj Carrasco Performing Organization Address [facility] Phone Number [facility] [address] [place] [address] [facility] Bilirubin, direct (05/17/2020 1:41 PM CDT)Only the most recent of11 results within the time period is included. Pathologist Sig nature Bilirubin, Total 3.1 (H) 0.2 - 1.2 mg/dL [facility] Bilirubin, Direct 1.1 (H) < OR = 0.2 mg/dL [facility] Bilirubin, Indirect 2.0 (H) 0.2 - 1.2 mg/dL (calc) [facility] Specimen Blood Narrative Performed At FASTING:NO [facility] FASTING: NO Resulting Agency Comment Performing Organization Information: Site ID: [id number] Name: [facility] Address: [address] [place] [phone] Director: Jj Carrasco Performing Organization Address [facility] Phone Number [facility] [address] [place] [address] [facility] Comprehensive metabolic panel (05/17/2020 1:41 PM CDT)Only the most recent of15 resultswithin the time period is included. Glucose 96 65 - 139 [facility] Comment: mg/dL Non-fasting reference interval BUN 33 (H) 7 - 25 mg/dL [facility] Creatinine 2.32 (H) 0.50 - 0.99 [facility] Comment: mg/dL For patients >49 years of age, the reference limit for Creatinine is approximately 13% higher for people identified as -Honduran. eGFR If NonAfricn 21 (L) > OR = 60 [facility] Am mL/min/1.73m2 eGFR If Africn Am 25 (L) > OR = 60 [facility] mL/min/1.73m2 BUN/Creatinine 14 6 - 22 (calc) [facility] Ratio Sodium 136 135 - 146 [facility] mmol/L Potassium, Serum 4.6 3.5 - 5.3 [facility] mmol/L Chloride 106 98 - 110 [facility] mmol/L Carbon Dioxide, 21 20 - 32 [facility] Total mmol/L Calcium, Serum 9.7 8.6 - 10.4 [facility] mg/dL Protein, Total, 5.5 (L) 6.1 - 8.1 [facility] Serum g/dL Albumin 3.1 (L) 3.6 - 5.1 [facility] g/dL GLOBULIN ([facility]) 2.4 1.9 - 3.7 [facility] g/dL (calc) Albumin Globulin 1.3 1.0 - 2.5 [facility] Ratio (calc) Bilirubin, Total 3.1 (H) 0.2 - 1.2 [facility] mg/dL Alkaline 73 37 - 153 U/L [facility] Phosphatase, S AST (SGOT) 29 10 - 35 U/L [facility] ALT (SGPT) 9 6 - 29 U/L [facility] Specimen Blood Narrative Performed At FASTING:NO [facility] FASTING: NO Resulting Agency Comment Performing Organization Information: Site ID: [id number] Name: [facility] Address: [address] [place] [phone] Director: Jj Carrasco Performing Organization Address [facility] Cent[facility] Phone Number [facility] [address] [place] [address] [facility] PLATELET ESTIMATION (05/02/2020 1:25 PM CDT)Only the most recent of3 results within the time period is included. Pathologist Sig nature Platelet Estimate DECREASED (A) ADEQUATE [facility] Specimen Narrative Performed At FASTING:NO [facility] FASTING: NO Resulting Agency Comment Performing Organization Information: Site ID: [facility] Name: [facility] Address: [address] [place] [phone] Director: Jj Carrasco Performing Organization Address City/[facility]/Zipcode Phone Number [facility] [address] [place] [address] [facility] XR dxa bone density study (04/11/2020 11:51 AM CDT) Specimen Narrative Performed At FINAL REPORT [facility] Bone density study, 04/11/2020 Clinical History: Screening [...] Report Verified Date/Time: 04/11/2020 13:34:32 Reading Location: [address] Room Procedure Note Interface, External Ris [...] Verified Date/Time: 04/11/2020 1 3:34:32 Reading Location: [address] Mammo Re ading Room Performing Organization Address City/State/Zipcode Phone Number GE [facility]IS CBC with platelet count + automated diff (04/11/2020 11:13 AM CDT)Only the most recent of16 resultswithin the time period is included. Pathologist Sig nature WBC 3.5 3.5 - 10.5 [facility] K/L [facility] RBC 2.51 (L) 3.93 - 5.22 [facility] M/L [facility] Hemoglobin 9.4 (L) 11.2 - 15.7 [facility] GM/DL [facility] Hematocrit 30.2 (L) 34.1 - 44.9 % [facility] MCV 120.3 (H) 79.4 - 94.8 fL [facility] MCH 37.5 (H) 25.6 - 32.2 pg [facility] MCHC 31.1 (L) 32.2 - 35.5 [facility] GM/DL [facility] RDW 14.6 (H) 11.7 - 14.4 % [facility] Platelets 57 (L) 150 - 450 K/CU [facility] MPV 10.4 9.4 - 12.3 fL [facility] nRBC 0 0 - 0 /100 WBC [facility] % Neutros 60 % [facility] % Lymphs 19 % [facility] % Monos 12 % [facility] % Eos 8 % [facility] % Baso 1 % [facility] # Neutros 2.09 1.56 - 6.13 [facility] # Lymphs 0.67 (L) 1.18 - 3.74 [facility] # Monos 0.43 (H) 0.24 - 0.36 [facility] # Eos 0.28 0.04 - 0.36 [facility] # Baso 0.02 0.01 - 0.08 [facility] Immature 0 0 - 1 % [facility] e CENTER Specimen Blood Performing Organization Address City/State/Zipcode Phone Number [facility] [address] [place] [address] CENTER Alpha fetoprotein (AFP), tumor marker (04/11/2020 11:13 AM CDT)Only the most recent of3 resultswithin the time period is included. Pathologist Sig nature Alpha-Fetoprotein <2.0 <10.0 ng/mL [facility] Specimen Blood Narrative Performed At Study Director ID - BS [facility] Performing Organization Address City/State/Zipcode Phone Number [facility] [address] [place] [address] CENTER Miscellaneous lab test (02/15/2020 12:29 PM CDT)Only the most recent of2 results within the time period is included. Pathologist Sig nature Scan Result [facility] Specimen Blood Narrative Performed At This result has an attachment that is no t available. Performing Organization Address City/State/Zipcode Phone Number [facility] [address] [facility] o, [place] Magnesium (02/15/2020 12:29 PM CDT)Only the most recent of13 resultswithin the time period is included. Pathologist Sig nature Magnesium 1.8 1.6 - 2.6 mg/dL [facility] CENTER Specimen Blood Narrative Performed At Study Director ID - LM [facility] Performing Organization Address City/State/Zipcode Phone Number [facility] [address] [place] [address] CENTER RHYTHM STRIP - SCAN (01/27/2020 10:00 [...] analytical performance characteristics have been determined by [facility]. It has not been cleared or approved by FDA. This assay has been validated pursuant to the CLIA regulations and is used for clini steven purposes. Normetanephrine 213 (H) < OR = 148 [facility] Comment: pg/mL INCORPORATED This test was developed and its analytical performance characteristics have been determined by [facility]. It has not been cleared [...] Plasma Fractionated Metanephrines for Pheochromocytoma. The J lafour[place], [facility] charles and terrebonne parishesnal of Clinical Endocrinology and Metabolism 93 (1),91-95, 2007. For additional information, please refer to http://education.IncellDx/faq/MetFractFree (This link is being provided for informational/educati onal purposes only.) This test was developed and its analytical performance characteristics have been determined by [facility]. It has not been cleared or approved by FDA. This assay has been validated pursuant to the CLIA regulations and is used for clini steven purposes. Specimen Blood Narrative Performed At Performing Lab [facility] [address] [place] [address] Mark Encarnacion MD, PhD, AMINA Performing Organization Address [facility] Centercode Phone Number [employer] [place] [address] INCORPORATED [address] [facility] Calcium, Ionized (01/26/2020 3:50 AM CDT)Only the most recent of7 resultswithin the time period is included. Pathologist Sig nature Calcium, Ion 1.11 (L) 1.12 - 1.27 mmol/L [facility] pH, Blood 7.41 [facility] Specimen Blood Performing Organization Address [facility]/Zipcode Phone Number [facility] [address] [place] [address] CENTER Phosphorus (01/26/2020 3:50 AM CDT)Only the most recent of7 resultswithin the time period is included. Pathologist Sig nature Phosphorus 3.2 2.3 - 4.7 mg/dL [facility] Specimen Blood Narrative Performed At Study Director ID - BS [facility] Performing Organization Address [facility]/Zipcode Phone Number [facility] [address] [place], [place] [phone] Y[facility] Hepatic function panel (01/26/2020 3:50 AM CDT)Only the most recent of13 resultswithin the time period is included. Pathologist Sig nature Protein, Total 5.7 (L) 6.0 - 8.3 gm/dL [facility] Albumin 3.4 (L) 3.5 - 5.0 g/dL [facility] Total Bilirubin 6.9 (H) 0.2 - 1.2 mg/dL [facility] Bilirubin, Direct 2.2 (H) 0.1 - 0.5 mg/dL [facility] Alkaline Phosphatase 58 40 - 150 U/L [facility] AST 36 (H) 5 - 34 U/L [facility] ALT 13 6 - 55 U/L [facility] Specimen Blood Narrative Performed At Study Director ID - BS [facility] Specimen moderately icteric Performing Organization Address City/State/Zipcode Phone Number [address] [address] [facility] Manual Differential (01/25/2020 3:47 AM CDT)Only the most recent of7 results within the time period is included. Pathologist Sig nature % Neutros 66 % [facility] % Lymphs 24 % [facility] % Monos 7 % [facility] % Eos 2 % [facility] % Metamyelo 1 (H) 0 - 0 % [facility] # Neutros 0.92 (L) 1.56 - 6.13 K/ul [facility] # Lymphs 0.34 (L) 1.18 - 3.74 K/ul [facility] # Monos 0.10 (L) 0.24 - 0.36 K/uL [facility] # Eos 0.03 (L) 0.04 - 0.36 K/uL [facility] # Metamyelo 0.01 (H) 0.00 - 0.00 K/uL [facility] Total Counted 100 [facility] Smudge Cells Present [facility] Giant Platelet Present [facility] Anisocytosis 2+ moderate [facility] Macrocytes 2+ moderate [facility] Poikilocytes 2+ moderate [facility] Freddie Cells 2+ moderate [facility] Artifact Present [facility] Platelet Conc Decreased [facility] Specimen Blood Narrative Performed At Study Director ID - [id number] [facility] Study Director ID - Maria Del Carmen Anguiano User comments: Slide comments: Performing Organization Address City/State/Zipcode Phone Number [facility] [address] [place] [address] CENTER Basic Metabolic Panel (01/25/2020 3:47 AM CDT)Only the most recent of10 results within the time period is included. Sodium 140 136 - 145 meq/L [facility] Potassium 3.4 (L) 3.5 - 5.1 meq/L [facility] Chloride 105 98 - 107 meq/L [facility] CO2 25 22 - 29 meq/L [facility] BUN 31 (H) 7 - 21 mg/dL [facility] Creatinine 2.35 (H) 0.57 - 1.25 [facility] mg/dL [facility] Glucose 108 (H) 70 - 105 mg/dL [facility] Calcium 8.7 8.4 - 10.2 [facility] mg/dL [facility] EGFR 21Comment: ESTIMATED mL/min/1.73 sq [facility] GFR IS NOT m [facility] ACCURATE [facility] CREATININE CLEARANCE IN PREDICTING GLOMERULAR FILTRATION RATE. ESTIMATED GFR IS NOT APPLICABLE FOR DIALYSIS PATIENTS. Specimen Blood Narrative Performed At Study Director ID - PIAYA L [facility] Specimen moderately icteric Performing Organization Address City/State/Zipcode Phone Number [facility] [address] [place] [address] CENTER TRANSFUSION SERVICE REPORT - [...] CDT) Narrative Performed At Epifanio Giles, JUVENAL, COMMUNITY NURSE 01/24/20 20 10:[address] [facility] PFT CHARTING REPORT Infection Control/Hand Hygiene procedure s followed throughout the encounter with patient: Yes Patient Identification Method: Patient n celia verified on armband, and Medical record on armband, Is the order complete?: Yes Account ID#: [id number] Patient Name: Cici Calderon Birthdate: 1955 Age: [...] CDT) Narrative Performed At Epifanio Giles RRT, COMMUNITY NURSE 01/24/20 10:[address] [facility] PFT CHARTING REPORT Infection Control/Hand Hygiene procedure s followed throughout the encounter with patient: Yes Patient Identification Method: Patient n celia verified on armband, and Medical record on armband, Is the order complete?: Yes Account ID#: [id number] Patient Name: Cici Calderon Birthdate: 1955 Age: [...] CDT) Narrative Performed At Epifanio Giles RRT, [facility] 01/24/20 10:[address] [facility] PFT CHARTING REPORT Infection Control/Hand Hygiene procedure s followed throughout the encounter with patient: Yes Patient Identification Method: Patient n celia verified on armband, and Medical record on armband, Is the order complete?: Yes Account ID#: [id number] Patient Name: Cici Calderon Birthdate: 1955 Age: [...] CDT) Narrative Performed At Janina Meehan RRT, [facility] 01/24/20 2:[address] [facility] PFT CHARTING REPORT Infection Control/Hand Hygiene procedure s followed throughout the encounter with patient: Yes Patient Identification Method: Patient n celia verified on armband, and Medical record on armband, Is the order complete?: Account ID#: [id number] Patient Name: Cici Calderon Birthdate: 1955 Age: [...] ABO A Pos SAFET[place]ACE [place] UNIT NUMBER [id number] SAFETRACE TX Status TX_TIMEINCHART SAFET[place]ACE [place] Blood Bank Product RED BLOOD CELLS [place] PRODUCT CODE [id number] [place] Specimen Other Performing Organization Address City/State/Zipcode Phone Number [place]AFET[place]ACE [place] B-type Natriuretic Factor (BNP) (01/23/2020 4:32 AM CDT)Only the most recent of 2 resultswithin the time period is included. Pathologist Sig nature BNP 2,179 (H) 0 - 100 pg/mL [facility] Specimen Blood Narrative Performed At Study Director ID - MITCH L [facility] Performing Organization Address [facility] Phone Number [address] [address] CENTER Prepare Leuko-Red PLT (01/22/2020 11:54 PM CDT)Only the most recent of2 results within the time period is included. Pathologist Sig nature Unit ABO A Pos SAFETRACE TX UNIT NUMBER [id number] SAFETRACE [place] Status WORK IN PROGRESS SAFETRACE [place] Blood Bank Product PLATELETS SAFETRACE [place] PRODUCT CODE [id number] SAFETRACE TX Unit ABO O Pos SAFETRACE TX UNIT NUMBER [id number] SAFETRACE TX Status TX_TIMEINCHART SAFETRACE [place] Blood Bank Product PLATELETS SAFETRACE [place] PRODUCT CODE [id number] S[place] Specimen Blood Performing Organization Address [facility] Phone Number SAFETRACE [place] Transfuse Leuko-Red RBC (01/22/2020 2:30 PM CDT)Only the most recent of2 resultswithin the time period is included.Cortisol (01/22/2020 8:23 AM CDT)Only the most recent of2 resultswithin the time period is included. Pathologist Sig nature Cortisol, Total 1.6 (L) 3.7 - 19.4 ug/dL [facility] Specimen Blood Narrative Performed At Study Director ID - MITCH L [facility] Performing Organization Address [facility] Phone Number [address] [address] CENTER ABORH, manual (01/22/2020 4:34 AM CDT) Pathologist Sig nature ABO Grouping A [facility] Rh Factor POS [facility] YUMA Specimen Blood Performing Organization Address City/[facility] Cent[facility] Phone Number [facility] [address] [place] [address] Direct AHG (RAMIREZ)/Direct Jewel (01/22/2020 4:34 AM CDT) Pathologist Sig nature Direct AHG-IGG NEGATIVE [facility] Direct AHG-C3B, C3D NEGATVIE [facility] HEALT [facility] Specimen Blood Performing Organization Address City/[facility]/Zipcode Phone Number [address] [address] Body fluid culture + gram stain (01/21/2020 4:54 PM CDT) Result No growth [facility] Gram Stain Result <1+ White blood [facility] cells seen [facility] Gram Stain Result No organisms seen [facility] Specimen Body Fluid - Ascites (disorder) Performing Organization Address City/[facility] Cent[facility]ode Phone Number [address] [address] CENTER Body fluid cell count with differential (01/21/2020 4:54 PM CDT) Appearance Hazy (A) Clear [facility] Color Cele (A) Colorless, [facility] RBCs 4,000 (H) <=1 /cu mm [facility] Adjusted WBC Count 86 (H) <=5 /cu mm [facility] Lining Cells 1 <=1 /cu mm [facility] % Segs 7 % [facility] % Lymphs 83 % [facility] % Monos 10 % [facility] % Eos 0 % [facility] % Baso 0 % [facility] Container Body Fluid Sterile Vial [facility] Specimen Body Fluid - Ascites (disorder) Performing Organization Address City/State/Zipcode Phone Number [facility] [address] [place] [address] CENTER US paracentesis (01/21/2020 4:40 PM CDT) Specimen Narrative Performed At FINAL REPORT [facility] Ultrasound guided paracentesis Clinical History: Ascites. Sedation: None. Ic Designer Custom: Christine Ward PA-C Supervising Physician: Natan Chisholm MD Human Resources Benefits Manager: None. Estimated Blood Loss: < 1 [...] anesthesia was achieved with lidocaine, a 5 Nigerien one-step catheter was advanced into the peritoneal cavity under ultrasound guidance. After completion of drainage, the cathet er was removed. There was no evidence of complication. Impression: Successful ultrasound guided paracentesi s. Signed: Natan Chisholm MD Report Verified Date/Time: 01/24/2020 09:43:05 Reading Location: [address] Reading Room Procedure Note Interface, External Ris In - 01/24/2020 9:45 AM CDT FINAL REPORT Ultrasound guided paracentesis Clinical History: Ascites. Sedation: None. Ic Designer Custom: Christine Ward PA-C Supervising Physician: Natan Chisholm MD Human Resources Benefits Manager: None. Estimated Blood Loss: < 1 [...] anesthesia was achieved with lidocaine, a 5 Nigerien one-step catheter was advanced into the peritoneal cavity under ultrasound guidance. After completion of drainage, the cathet er was removed. There was no evidence of complication. Impression: Successful ultrasound guided paracentesi s. Signed: Natan Chisholm MD Report Verified Date/Time: 01/24/2020 0 9:43:05 Reading Location: [facility] [id number] [facility] Reading Room Performing Organization Address City/State/Zipcode Phone Number GE RIS Peripheral Blood Smear - Hold only (01/21/2020 9:31 AM CDT) Pathologist Sig nature Peripheral Smear Save saved [facility] Specimen Blood Performing Organization Address City/[facility]/Zipcode Phone Number [address] [address] CENTER Reticulocyte count (01/21/2020 9:31 AM CDT)Only the most recent of2 results within the time period is included. Pathologist Sig nature % Retic 5.3 (H) 0.5 - 1.7 % [facility] Specimen Blood Narrative Performed At Study Director ID - [id number] [facility] Performing Organization Address City/[facility]/Zipcode Phone Number [address] [address] CENTER XR chest 1 view portable / bedside (01/21/2020 9:10 AM CDT)Only the most recent of2 resultswithin the time period is included. Specimen Narrative Performed At FINAL REPORT GE [facility]IS INDICATION: Edema COMPARISON: January 20, 2020 TECHNIQUE: Single frontal view of the ch est. FINDINGS: Lungs and pleura: Increased coarse bilat eral interstitial opacities, left greater than right concerning for w orsening interstitial edema No effusion. Heart and mediastinum: Normal heart size . Unremarkable mediastinal contours. Osseous structures: No acute abnormality . Other: None. IMPRESSION: Slight interval worsening of interstitia l edema Signed: Karen Walker MD Report Verified Date/Time: 01/21/2020 10:03:32 Reading Location: [facility] Reading Room Procedure Note Interface, External Ris In - 01/21/2020 10:05 AM CDT FINAL REPORT INDICATION: Edema COMPARISON: January 20, 2020 TECHNIQUE: Single frontal view of the ch est. FINDINGS: Lungs and pleura: Increased coarse bilat eral interstitial opacities, left greater than right concerning for w orsening interstitial edema No effusion. Heart and mediastinum: Normal heart size . Unremarkable mediastinal contours. Osseous structures: No acute abnormality . Other: None. IMPRESSION: Slight interval worsening of interstitia l edema Signed: Karen Walker MD Report Verified Date/Time: 01/21/2020 1 0:03:32 Reading Location: [facility] Reading Room Performing Organization Address City/State/Zipcode Phone Number RIS Metanephrines, 24 hour urine (01/20/2020 10:51 PM CDT) TOTAL VOLUME 1000 mL [facility] Metanephrine 205 90 - 315 [facility] Comment: mcg/24 h INCORPORATED This test was developed and its analytical performance characteristics have been determined by [email or web address] [facility]. It has not been cleared or approved by FDA. This assay has been validated pursuant to the CLIA regulations and is used for clini steven purposes. Normetanephrine 230 486 - 896 [facility] Comment: mcg/24 h INCORPORATED This test was developed and its analytical performance characteristics have been determined by [email or web address] [facility]. It has not been cleared or [...] analytical performance characteristics have been determined by [facility]. It has not been cleared or approved by FDA. This assay has been validated pursuant to the CLIA regulations and is used for clini steven purposes. Specimen Urine Narrative Performed At Performing Lab [employer] [facility] EZ [email or web address] [facility] te [address] [place] [address] Mark Encarnacion MD, PhD, AMINA Performing Organization Address City/State/Zipcode Phone Number [employer] [place] [address] INCORPORATED [address] [facility] Catecholamines, Fractionated, 24hr urine (01/20/2020 10:51 PM CDT) TOTAL VOLUME 1000 mL [facility] Epinephrine,24 Hr Ur <2 (L) 2 - 24 [facility] Comment: mcg/24 h INCORPORATED Result below clinical reportable range for this analyt e, which is 2 mcg/L. Reported result was calculated using 2 mcg/L. This test was developed and its analytical performance characteristics have been determined by [facility]. It has not been cleared or approved by FDA. This assay has been validated pursuant to the CLIA regulations and is used for clini steven purposes. Norepinephrine 9 (L) 15 - 100 [facility] Comment: mcg/24 h INCORPORATED This test was developed and its analytical performance characteristics have been determined by [facility]. It has not been cleared or approved by FDA. This assay has been validated pursuant to the CLIA regulations and is used for clini steven purposes. Calculated Total 9 (L) 26 - 121 [facility]Ne Comment: mcg/24 h INCORPORATED This test was developed and its analytical performance characteristics have been determined by [facility]. It has not been cleared or [...] analytical performance characteristics have been determined by [facility]. It has not been cleared or approved by FDA. This assay has been validated pursuant to the CLIA regulations and is used for clini steven purposes. Creatinine,24 Hr 0.88 0.50 - 2.15 [facility] Urin g/24 h INCORPORATED Specimen Urine Narrative Performed At Performing Lab [facility] [employer] [facility] [address] [place] [address] Mark Encarnacion MD, PhD, AMINA Performing Organization Address [facility] Centercode Phone Number [place] [address] INCORPORATED [address] [address] [facility] [address] Type and screen, automated (01/20/2020 8:39 PM CDT)Only the most recent of2 resultswithin the time period is included. Pathologist Sig nature ABO/RH AUTOMATED A POSITIVE [facility] (BEAKER) [facility] Ab Scrn NEGATIVE [facility] Specimen Blood Performing Organization Address [facility] Centercode Phone Number [facility] [address] [place] [address] MR abdomen without IV contrast (01/20/2020 5:54 PM CDT) Specimen Narrative Performed At FINAL REPORT [facility] TECHNIQUE: MRI of the abdomen WITHOUT in [...] Report Verified Date/Time: 01/21/2020 07:51:30 Reading Location: [facility] Reading Room - [place] [address] Procedure Note Interface, External Ris In - [...] Verified Date/Time: 01/21/2020 0 7:51:30 Reading Location: [facility]agin [facility] Reading Room - [place] [address] Performing Organization Address City/State/Zipcode Phone Number GE RIS Urinalysis w/Microscopic + Reflex to Culture (01/19/2020 11:19 PM CDT) Color, UA Yellow [facility] Clarity, UA Hazy [facility] Specific [place], 1.017 1.001 - 1.035 [facility] pH, UA 5.5 5.0 - 8.0 [facility] Protein, UA 20 mg/dL (A) Negative [facility] Glucose, UA Negative Negative [facility] Ketones, UA Negative Negative [facility] Bilirubin, UA Negative Negative [facility] Blood, UA Small (A) Negative [facility] Nitrite, UA Negative Negative [facility] Leukocytes, UA Trace (A) Negative [facility] Urobilinogen, UA 0.2 0.2 - 1.0 mg/dL [facility] RBC, UA 1 /HPF [facility] WBC, UA 3 /HPF [facility] Bacteria, UA Rare [facility] Squam Epithel, UA 3 /HPF [facility] Hyaline Casts, UA 3 /LPF [facility] Specimen Source [facility] Specimen Urine Performing Organization Address City/[facility]/[place] [address] CENTER Sodium, random urine (01/19/2020 11:19 PM CDT)Only the most recent of3 results within the time period is included. Pathologist Sig nature Sodium Urine <20 meq/L [facility] ICAL YUMA Specimen Urine Narrative Performed At Reference Range: No Normals [facility] Study Director ID - PIAYA L Performing Organization Address [facility] Cent[facility]ode Phone Number [address] [address] CENTER Urinalysis w/Microscopic (01/19/2020 11:19 PM CDT)Only the most recent of2 resultswithin the time period is included. Color, UA Yellow [facility] Clarity, UA Hazy [facility] Specific [place], 1.017 1.001 - 1.035 [facility] pH, UA 5.5 5.0 - 8.0 [facility] Protein, UA 20 mg/dL (A) Negative [facility] Glucose, UA Negative Negative [facility] Ketones, UA Negative Negative [facility] Bilirubin, UA Negative Negative [facility] Blood, UA Small (A) Negative [facility] Nitrite, UA Negative Negative [facility] Leukocytes, UA Trace (A) Negative [facility] Urobilinogen, UA 0.2 0.2 - 1.0 mg/dL [facility] RBC, UA 1 /HPF [facility] WBC, UA 3 /HPF [facility] Bacteria, UA Rare [facility] Squam Epithel, UA 3 /HPF [facility] Hyaline Casts, UA 3 /LPF [facility] Specimen Source [facility] Specimen Urine Narrative Performed At Study Director ID - [auto] [facility] Study Director ID - tech Performing Organization Address City/[facility]/Zipcode Phone Number [address] [address] CENTER Blood Culture - Routine (Right Venipuncture) (01/19/2020 9:45 PM CDT)Only the most recent of4 resultswithin the time period is included. Pathologist Sig nature Result No growth in 5 days [facility] Specimen Blood - Entire right upper arm (body str ucture) Performing Organization Address City/State/Zipcode Phone Number [facility] [address] [place] [address] CENTER [id number] PHENOTYP (01/19/2020 9:43 PM CDT) Specimen Blood - Entire right upper arm (body str ucture) Narrative Performed At This result has an attachment that is no t available. Performing Organization Address City/[facility]/Zipcode Phone Number [facility] [address] [facility] o, [place] Blood gas, arterial (01/19/2020 3:44 PM CDT) Pathologist Sig nature pH, Arterial 7.42 7.35 - 7.45 [facility] pCO2, Arterial 36 35 - 45 mmHg [facility] pO2, Arterial 78 (L) 80 - 90 mmHg [facility] O2 Sat, Arterial 96.2 96.0 - 97.0 % [facility] HCO3, Arterial 23 21 - 29 mmol/L [facility] Base Excess, Arterial -1.9 -2.0 - 3.0 [facility] mmol/L [facility] Patient Temperature 36.1 C [facility] FIO2 28.0 % [facility] Specimen Blood, Arterial Performing Organization Address City/State/Zipcode Phone Number [address] [address] YUMA Cryptococcal antigen (01/19/2020 3:04 PM CDT) Cryptococcal Negative Negative, [facility] Antigen, Serum Interference [facility] Specimen Blood Performing Organization Address City/[facility]/Zipcode Phone Number [address] [address] YUMA Rubeola antibody IgG (01/19/2020 3:04 PM CDT) [...] patient. For additional information, please refer to http://education.KO-SU/faq/IHQ256 (This link is being provided for informational/ educational purposes only.) Specimen Blood Narrative Performed At Performing Lab [facility] *QDID [facility] [address] [place] [address] Sudhakar Hargrove MD Performing Organization Address City/[facility] Centercode Phone Number [place] [address] INCORPORATED [address] [facility] Rubella antibody, IgG (01/19/2020 3:04 PM CDT) Pathologist Sig nature Rubella IgG Quant 127.0 (H) <8.0 IU/mL [facility] Specimen Blood Narrative Performed At Rubella IgG Result Interpretation: [facility] </= 7.0 IU/mL Negative - Presumed non-immune 8.0 - 9.9 IU/mL Equivocal >= 10.0 IU/mL Positive - Presumed immune Performing Organization Address [facility] Centercode Phone Number [address] [address] YUMA Varicella zoster antibody, IgG (01/19/2020 3:04 PM CDT) Pathologist Sig nature Varicella IgG 3.6 [facility] Specimen Blood Narrative Performed At VARICELLA ZOSTER RESULT INTERPRETATIONS: [facility] <=0.8 Al Nonreactive: Presumed non-immune to VZV 0.9-1.0 Al Equivocal >=1.1 Al Reactive: Presumed immune to VZV Performing Organization Address City/[facility] Phone Number [address] [address] CENTER Mumps antibody, IgG (01/19/2020 [...] At Performing Lab [facility] *QDID [employer] [facility] [address] [place] [address] Sudhakar Hargrove MD Performing Organization Address City/State/Zipcode Phone Number [place] [address] INCORPORATED [address] [facility] US breast bilateral (01/19/2020 9:10 AM [...] Report Verified Date/Time: 01/19/2020 09:52:28 Reading Location: [facility] 10th Prr Mammo Re ading Room Procedure Note Interface, [...] Verified Date/Time: 01/19/2020 0 9:52:28 Reading Location: [facility] 10th Flr Mammo Re ading Room Performing Organization Address City/State/Zipcode Phone Number GE RIS Aldosterone (01/19/2020 4:11 AM CDT) Aldosterone 22 ng/dL [facility] Comment: INCORPORATED Adult Reference Ranges for Aldosterone: Upright 8:00-10:00 am < or = 28 ng/dL Upright 4:00-6:00 pm < or = 21 ng/dL Supine 8:00-10:00 am 3-16 ng/dL This test was developed and its analytical performance characteristics have been determined by [facility]. It has not been cleared or approved by FDA. This assay has been validated pursuant to the CLIA regulations and is used for clini steven purposes. Specimen Blood Narrative Performed At Performing Lab [facility] [place] [address] [place] [address] Mark Encarnacion MD, PhD, AMINA Performing Organization Address [facility] [place] [address] INCORPORATED [address] [facility] Renin, plasma (01/19/2020 4:11 AM CDT) PRA,LC/MS/MS 1.51 0.25 - 5.82 [facility] Comment: ng/mL/h INCORPORATED This test was developed and its analytical performance characteristics have been determined by [facility]. It has not been cleared or approved by FDA. This assay has been validated pursuant to the CLIA regulations and is used for clini steven purposes. Specimen Blood Narrative Performed At Performing Lab [facility] [place] [address] [place] [address] Mark Encarnacion MD, PhD, AMINA Performing Organization Address [facility] Phone Number [facility] [place] [address] INC[address]POR[address] abdomen without IV contrast (01/19/2020 12:40 AM CDT) Specimen Narrative Performed At FINAL REPORT [facility] TECHNIQUE: CT of the abdomen WITHOUT int [...] Report Verified Date/Time: 01/19/2020 08:09:04 Reading Location: [facility] Reading Room - [place] [address] Procedure Note Interface, External Ris In [...] Verified Date/Time: 01/19/2020 0 8:09:04 Reading Location: [facility] Reading Room - [facility] F1 1129 Performing Organization Address City/State/Zipcode Phone Number [facility] US renal complete (01/19/2020 12:20 AM CDT) Specimen Narrative Performed At FINAL REPORT [facility] Ultrasound of the Kidneys Clinical History: Re-examine [...] Date/Time: 01/19/2020 01:26:59 Procedure Note Interface, External [facility] In - 01/19/2020 1:29 AM CDT FINAL [...] Date/Time: 01/19/2020 0 1:26:59 Performing Organization Address City/[facility] Centercode Phone Number RIS Protein, random urine (01/18/2020 8:49 PM CDT) Pathologist Sig nature Protein, Urine 45 (H) 0 - 14 mg/dL [facility] Specimen Urine - Urine, Sterile Collection Narrative Performed At Study Director ID - EDWIN B [facility] Performing Organization Address City/[facility]/Zipcode Phone Number [facility] [address] [place] [address] CENTER Creatinine, random urine (01/18/2020 8:49 PM CDT)Only the most recent of2 resultswithin the time period is included. Pathologist Sig nature Creatinine, Ur 181.3 mg/dL [facility] Specimen Urine - Urine, Sterile Collection Narrative Performed At Reference Range: No Normals [facility] Study Director ID - EDWIN B Performing Organization Address [facility]/Lower [facility]/Zipcode Phone Number [facility] [address] [place] [address] CENTER Eosinophil smear (01/18/2020 8:49 PM CDT) Pathologist Sig nature Eosinophil Smear Rare EOS =less No EOS seen [facility] than 5% WBCs [facility] seen are EOS (A) CENTER Specimen Urine - Urine, Sterile Collection Performing Organization Address City/State/Zipcode Phone Number [facility] [address] [place] [address] [place] Myocardial Perfusion Pet/CT (Rest & Stress) (01/18/2020 9:20 AM CDT) Specimen Narrative Performed At FINAL REPORT [facility] PROCEDURE: MYOCARDIAL PERFUSION PET IMAG ING (Rest/Stress) CPT CODE: 18788 INDICATION: Evaluation for liver transpl ant CARDIOVASCULAR [...] Report Verified Date/Time: 01/18/2020 12:45:40 Reading Location: [facility] 3rd Flr P327B Nuc Med Reading Room Procedure Note Interface, External Ris In - 01/18/2020 12:47 PM CDT FINAL REPORT PROCEDURE: MYOCARDIAL PERFUSION PET IMAG ING (Rest/Stress) CPT CODE: 23418 INDICATION: Evaluation for liver transpl ant CARDIOVASCULAR [...] Verified Date/Time: 01/18/2020 1 2:45:40 Reading Location: [address] P327B [employer] Med Reading Room Performing Organization Address City/State/Zipcode Phone Number [facility] Treadmill tolerance(Non-Nuclear Treadmill) (01/18/2020 8:57 AM CDT) [...] on 01/19/2020 7:03:55 AM Performing Organization Address City/State/[facility] Cent[facility] Phone Number GE MUSE ECG 12 lead (01/18/2020 8:46 AM CDT)Only the most recent of2 resultswithin the time period is included. Specimen Narrative Performed At Ventricular Rate 62 BPM GE MUSE Atrial Rate 62 BPM P-R Interval 138 ms QRS Duration 86 ms Q-T Interval 452 ms QTC Calculation(Bazett) 458 ms P [place] 59 degrees R [place] 32 degrees T [place] 56 degrees Normal sinus rhythm Low voltage QRS Nonspecific ST abnormality 17 JAN 2020 11:05 Nonspecific T wave abnormality Nonspecific T wave abno rmality, improved in QT has shortened Confirmed by MD FARHAT, JESSIE ([id number]) on 01/18/2020 2:19:38 PM Procedure Note Interface, External Ris In - 01/18/2020 2:19 PM CDT Ventricular Rate 62 BPM Atrial Rate 62 BPM P-R Interval 138 ms QRS Duration 86 ms Q-T Interval 452 ms QTC Calculation(Bazett) 458 ms P [place] 59 degrees R [place] 32 degrees T [place] 56 degrees Normal sinus rhythm Low voltage QRS Nonspecific ST abnormality 17 JAN 2020 11:05 Nonspecific T wave abnormality Nonspecif ic T wave abnormality, improved in QT has shortened Confirmed by MD FARHAT, [facility] ([id number]) on 01/18/2020 2:19:38 PM Performing Organization [...] is no t available. Performing Organization Address City/[facility]/Zipcode Phone Number [facility] [address] [place] [address] LAB[address]ATOR[address] REPORT OF PROCEDURE - [...] nature Case Report Surgical Pathology Report Case: [id number] [facility] [address] [facility] Authorizing Provider: Sylvie George MD Collected: 01/17/2020 08:15 AM [facility] Ordering Location: [address] Received: 01/17/2020 01:50 PM MEDICAL CENTER Service Pathologist: Humaira Mendez MD Specimen: Duodenum, bio psy ADDENDUM THIS ADUODENUMIS ISSUED TO R EPORT THE FINDINGS IN THE DEEPER LEVELS OF THE BIOPSY AND GIVE THE FINAL DIAGNOSIS: [facility] Addendum [facility] electronically signed DUODENUM, ENDOSCOPIC BIOPSY: MEDICAL PARVIN TER by Humaira Mendez - ECTATIC VESSELS IN THE LAMINA PROPRIA, SUGGESTIVE OF PORTAL DUODENOPATHY MD Siva on - NO FEATURES OF CELIAC DISEASE SEEN 01/19/2020 at 4:12 PM - NO GRANULOMAS, DYSPLASIA OR MALIGNANCY SEEN DIAGNOSIS DUODENUM, ENDOSCOPIC BIOPSY: [facility] Electron[facility] signed - SUPERFICIAL FRAGMENTS OF SMALL BOWEL MUCOSA WITH GASTRIC FOVEOLAR METAPLASIA [facility] by Vanessa [facility] MD samir Paniagua 01/18/2020 at 3 :50 PM Signing Pathologist Direct Phone Line: CPT Code(s) 54777 [facility] CLINICAL HISTORY Procedure: upper endoscopy, biopsy and colonosc opy [facility] Pre and postop diagnosis: anemia [facility] SPECIMEN SOURCE A. Duodenum; biopsy [facility] GROSS DESCRIPTION A. The specimen is [facility] received in [facility] with the patient's name, accession number and "duodenum" and consists of one garduno-pink mucosal-covered pieces of tissue measuring 0.3 x 0.2 x 0.1 cm. The specimen is submitted entirely following filtration in a cassette A1. HS/pl MICROSCOPIC PERFORMED [facility] Specimen Tissue - Duodenal structure (body struct ure) Performing Organization Address [facility] Centercova Phone Number [address] [address] CENTER Lactate dehydrogenase (LDH) (01/16/2020 12:24 PM CDT) Pathologist Sig nature LDH 250 (H) 125 - 220 U/L [facility] Specimen Blood Narrative Performed At Study Director ID - TUAN C [facility] Performing Organization Address City/[facility]/Zipcode Phone Number [address] [address] [place] Vitamin B12 and Folate (01/16/2020 11:25 AM CDT) Pathologist Sig nature Vitamin B12 1,107 (H) 213 - 816 pg/mL [facility] Folate 3.40 (L) >=7.00 ng/mL [facility] Specimen Blood Narrative Performed At Study Director ID - NTP [facility] Performing Organization Address [facility] Centercode Phone Number [address] [address] [phone] CENTER HIV-1 Antigen with HIV-1/2 Antibody (01/16/2020 11:25 AM CDT) Pathologist Sig nature HIV-1 Antigen with Nonreactive Nonreactive [facility] HIV 1&2 Antibody [facility] Specimen Blood Narrative Performed At Study Director ID - TUAN Mera [facility] Performing Organization Address City/[facility] Centercode Phone Number [facility] [address] [place] [address] [place] Haptoglobin (01/16/2020 11:25 AM CDT) Pathologist Sig nature Haptoglobin <8 (L) 14 - 258 mg/dL [facility] Specimen Blood Narrative Performed At Study Director ID - TUAN Mera [facility] Performing Organization Address [facility] Centercode Phone Number [address] [address] [place] US abdominal with doppler (01/16/2020 6:30 AM CDT) Specimen Narrative Performed At FINAL REPORT [facility] ULTRASOUND ABDOMEN COMPLETE, ULTRASOUND DUPLEX DOPPLER HISTORY: [...] Report Verified Date/Time: 01/16/2020 07:32:01 Reading Location: [facility] C013T [facility] Reading Room Procedure Note Interface, [...] Verified Date/Time: 01/16/2020 0 7:32:01 Reading Location: [facility] [address] [place] [address] Reading Room Performing Organization Address City/State/Zipcode Phone Number [facility] Drug screen, urine, transplant (01/15/2020 9:52 PM CDT) Specimen Urine Narrative Performed At This result has an attachment that is no t available. Performing Organization Address City/[facility]/Zipcode Phone Number [place] [phone] [place] [address] Blood typing, automated - - at seperate draw time from initial type and screen (01/15/2020 6:16 PMCDT) Pathologist Sig nature ABO/RH AUTOMATED A POSITIVE [facility] (BEAKER) [facility] Specimen Blood Performing Organization Address City/[facility] Centercode Phone Number [facility] [address] [place] [address] [address] chest without IV contrast (01/15/2020 5:54 PM CDT) Specimen Narrative Performed At FINAL REPORT [facility] CT of the chest, without contrast Clinical [...] Report Verified Date/Time: 01/15/2020 17:57:54 Reading Location: [facility] Procedure Note Interface, External Ris [...] Date/Time: 01/15/2020 1 7:57:54 Reading Location: [facility] Performing Organization Address City/State/Zipcode Phone Number GE RIS XR chest 2 views (01/15/2020 4:57 PM CDT) Specimen Narrative Performed At FINAL REPORT [facility] RIS History: Cirrhosis, liver transplant shama luation [...] Report Verified Date/Time: 01/15/2020 17:16:49 Reading Location: [address] Reading Room Procedure Note Interface, External [...] Verified Date/Time: 01/15/2020 1 7:16:49 Reading Location: [address] Reading Room Performing Organization Address City/State/Zipcode [...] Report Verified Date/Time: 01/15/2020 17:22:12 Reading Location: [address] Reading Room Procedure Note Interface, External [...] Verified Date/Time: 01/15/2020 1 7:22:12 Reading Location: [facility] [address] [place] [address] Reading Room Performing Organization Address [facility] Centercova Phone Number RIS Mitochondria M2 Antibody (IgG) (01/15/2020 4:17 PM CDT) Mitochondria M2 Ab <20.0 See Note: U [facility] Comment: INCORPORATED Reference Range: NEGATIVE: < OR = 20.0 EQUIVOCAL: 20.1-24.9 POSITIVE: > OR = 25.0 Specimen Blood Narrative Performed At Performing Lab [facility] EZ [facility] [place] [address] [place] [address] Mark Encarnacion MD, PhD, AMINA Performing Organization Address [facility] Centercova Phone Number [place] [address] INCORPORATED [address] [facility] Iron, TIBC, % sat. (without ferritin) (01/15/2020 4:17 PM CDT) Pathologist Sig nature Iron 144.0 40.0 - 160.0 [facility] ug/dL [facility] TIBC 129 (L) 250 - 450 ug/dL [facility] Iron % Saturation 112 (H) 20 - 55 % [facility] Specimen Blood Narrative Performed At Study Director ID - DB [facility] Performing Organization Address City/[facility]/Zipcode Phone Number [facility] [address] [place] [phone] [place] Hepatitis C antibody (01/15/2020 4:17 PM CDT) Pathologist Sig nature Hepatitis C Ab Nonreactive Nonreactive [facility] Specimen Blood Narrative Performed At Study Director ID - DB [facility] Performing Organization Address City/State/Zipcode Phone Number [address] [address] [place] Cytomegalovirus antibody, IgM (01/15/2020 4:17 PM CDT) Pathologist Sig nature CMV IGM Negative Negative, Equivocal [facility] Specimen Blood Narrative Performed At CMV IgM Result Interpretation: [facility] </= 0.8 Al Negative 0.9-1.0 Al Equivocal >/= 1.1 Al Positive Performing Organization Address [facility] Centercova Phone Number [address] [address] [place] Actin (Smooth Muscle) Antibody, IgG (01/15/2020 4:17 [...] Lab [facility] E[facility] RF nano [facility] [place] [address] [place] [address] Mark Encarnacion MD, PhD, AMINA Performing Organization Address City/[facility] Centercode Phone Number [place] [address] INCORPORATED [address] [facility] [id number] (01/15/2020 4:17 PM CDT) Pathologist Sig nature A-1 Antitrypsin 121.20 90.00 - 200.00 [facility] mg/dL [facility] Specimen Blood Narrative Performed At Study Director ID - DB [facility] Performing Organization Address City/[facility] Centercode Phone Number [address] [address] CENTER Hepatitis A antibody, IgM (01/15/2020 4:17 PM CDT) Pathologist Sig nature Hep A IgM Nonreactive Nonreactive [facility] Specimen Blood Narrative Performed At Study Director ID - DB [facility] Performing Organization Address [facility] Centercova Phone Number [address] [address] [place] Carbohydrate antigen 19-9 (CA 19-9) (01/15/2020 4:17 [...] Lab [facility] [place] [address] [place] [address] Mark Encarnacion MD, PhD, AMINA Performing Organization Address City/State/[facility] Centercode Phone Number [place] [address] INCORPORATED [address] [facility] Ceruloplasmin (01/15/2020 4:17 PM CDT) Pathologist Sig nature Ceruloplasmin 21 18 - 53 mg/dL [facility] JERAMY Specimen Blood Narrative Performed At Performing Lab [facility] *BEATRIZ [facility], [address] [place] [address] Jorje Jauregui MD, PhD Performing Organization Address City/State/Zipcode Phone Number [place] [address] INCORPORATED [address] [facility] Zinc (01/15/2020 4:17 PM CDT) Zinc 39 (L) 60 - 130 [facility] Comment: mcg/dL INCORPORATED This test was developed and its analytical performance characteristics have been determined by [employer]. It has not been cleared or approved by [facility] FDA. This assay has been validated pursuant to the CLI A regulations and is used for clinical purposes. Specimen Blood Narrative Performed At Performing Lab [facility] *BEATRIZ [employer] [facility], [address] [place] [phone] Jorje Jauregui MD, PhD Performing Organization Address City/[facility]/Zipcode Phone Number [place] [address] INCORPORATED [address] [facility] Hepatitis B core antibody, IgM (01/15/2020 4:17 PM CDT) Pathologist Sig nature Hep B C IgM Nonreactive Nonreactive [facility] Specimen Blood Narrative Performed At Study Director ID - DB [facility] Performing Organization Address City/[facility]/[place] [address] CENTER EBV-VCA antibody, IgM (01/15/2020 4:17 PM CDT) Pathologist [facility] GABRIEL CHING VIRAL Negative Negative, Equivocal [facility] CAPSID ANTIGEN IGM [facility] Specimen Blood Narrative Performed At Gabriel Ching Viral Capsid Antigen IgM Result [facility] Interpretation: </= 0.8 Al Negative 0.9-1.0 Al Equivocal >/= 1.1 Al Positive Performing Organization Address [facility] Centercode Phone Number [address] [address] CENTER EBV-VCA antibody, IgG (01/15/2020 4:17 PM CDT) Pathologist [facility] GABRIEL CHING VIRAL Positive (A) Negative, [facility] CAPSID ANTIGEN IGG Equivocal [facility] Specimen Blood Narrative Performed At Gabriel Ching Viral Capsid Antigen IgG Result [facility] Interpretation: </= 0.8 Al Negative 0.9-1.0 Al Equivocal >/= 1.1 Al Positive Performing Organization Address [facility] Centercova Phone Number [address] [address] CENTER Hepatitis B core antibody, total (01/15/2020 4:17 PM CDT) Pathologist Sig nature Hep B Core Total Ab Nonreactive Nonreactive [facility] Specimen Blood Narrative Performed At Study Director ID - CAROLINA F [facility] Performing Organization Address [facility] Centercova Phone Number [address] [address] CENTER Vitamin D, 25-Hydroxy (01/15/2020 4:17 PM CDT) Pathologist Sig nature Vitamin D 25-Hydroxy 6.2 (L) 6.6 - 49.9 ng/mL [facility] Specimen Blood Narrative Performed At Effective 05/07/2017: Reference Range Ch von [facility] New: 6.6-49.9 ng/mL Previous: 13.0-47.8 ng/mL Recommended Vitamin D Target Range: 30.0-40.0 ng/mL Study Director ID - DB Performing Organization Address [facility] Phone Number [address] [address] CENTER RPR (01/15/2020 4:17 PM CDT) Pathologist Sig nature RPR Nonreactive Nonreactive [facility] Specimen Blood Performing Organization Address [facility] Phone Number [address] [address] CENTER Hepatitis B surface antibody (01/15/2020 4:17 PM CDT) Pathologist Sig nature Hep B S Ab 25.0 (H) <8.0 mIU/mL [facility] Specimen Blood Narrative Performed At Study Director ID - DB [facility] Performing Organization Address City/[facility]/Zipcode Phone Number [address] [address] [place] Hepatitis B surface antigen (01/15/2020 4:17 PM CDT) Pathologist Sig nature HBsAg Screen Nonreactive Nonreactive [facility] Specimen Blood Narrative Performed At Specimen is considered negative for HBsAg. [facility] Performing Organization Address City/[facility]/Zipcode Phone Number [address] [address] [place] Cytomegalovirus antibody, IgG (01/15/2020 4:17 PM CDT) CYTOMEGALOVIRUS, Positive (A) Negative, [facility] IGG Equivocal [facility] Specimen Blood Narrative Performed At CMV IgG Result Interpretation: [facility] </= 0.8 Al Negative 0.9-1.0 Al Equivocal >/=1.1 Al Positive Performing Organization Address [facility] Centercova Phone Number [address] [address] [place] aPTT (01/15/2020 4:17 PM CDT) Pathologist Sig nature PTT 36.8 (H) 22.5 - 36.0 seconds [facility] Specimen Blood Performing Organization Address City/[facility] Centercode Phone Number [address] [address] CENTER Fibrinogen (01/15/2020 4:17 PM CDT) Pathologist Sig nature Fibrinogen 114 (L) 225 - 434 mg/dl [facility] Specimen Blood Performing Organization Address [facility]/Zipcode Phone Number [address] [address] CENTER Anti-Nuclear Antibody (REILLY) (01/15/2020 4:17 PM CDT) Pathologist Sig nature REILLY Negative Negative [facility] Specimen Blood Narrative Performed At Test performed by IFA method. [facility] Test performed by IFA method. Performing Organization Address City/State/Zipcode Phone Number [facility] [address] [place] [address] CENTER T3 (01/15/2020 4:17 PM CDT) Pathologist Sig nature T3, Total 51 48 - 159 ng/dL [facility] Specimen Blood Narrative Performed At This result has an attachment that is no t available. Performing Organization Address City/State/Zipcode Phone Number [facility] [address] [place], [place] Transferrin (01/15/2020 4:17 PM CDT) Pathologist Sig nature Transferrin 102 (L) 174 - 382 mg/dL [facility] Specimen Blood Narrative Performed At Study Director ID - DB [facility] Specimen moderately icteric Performing Organization Address City/[facility]/Zipcode Phone Number [address] [address] CENTER TSH (01/15/2020 4:17 PM CDT) Pathologist Sig formerly [facility] TSH 5.549 (H) 0.350 - 4.940 uIU/mL [facility] Specimen Blood Narrative Performed At Study Director ID - DB [facility] Performing Organization Address City/[facility]/Zipcode Phone Number [address] [address] CENTER T4 (01/15/2020 4:17 PM CDT) Pathologist Sig nature T4, Total 4.3 (L) 4.9 - 11.7 ug/dL [facility] Specimen Blood Narrative Performed At Study Director ID - NTP [facility] ICAL YUMA Performing Organization Address City/[facility]/Zipcode Phone Number [address] [place] [address] [place] Hemoglobin A1c (01/15/2020 4:17 PM CDT) Pathologist Sig nature Hemoglobin A1C <3.8 (L) 4.3 - 6.1 % [facility] Specimen Blood Performing Organization Address [facility] Phone Number [address] [address] CENTER Ferritin (01/15/2020 4:17 PM CDT) Pathologist Sig [facility] Ferritin 489.86 (H) 5.00 - 275.00 ng/mL [facility] Specimen Blood Narrative Performed At Study Director ID - NTP [facility] Performing Organization Address [facility] Phone Number [address] [address] [place] Carcinoembryonic Antigen (CEA) (01/15/2020 4:17 PM CDT) Pathologist Sig [facility] CEA, SERUM 7.9 (H) 0.0 - 5.0 ng/mL [facility] Specimen Blood Narrative Performed At Study Director ID - DB [facility] Performing Organization Address [facility] Phone Number [address] [address] CENTER Ethanol (01/15/2020 4:17 PM CDT) Pathologist Sig nature Ethanol Lvl <10 <=10 mg/dL [facility] Specimen Blood Narrative Performed At Study Director ID - DB [facility] Performing Organization Address [facility] Centercode Phone Number [address] [address] CENTER 2D Echo W/Doppler(CW/PW/Color) (01/15/2020 2:45 PM CDT) Pathologist Sig nature Ejection Fraction SLE ECHO [facility] ESSON CPACS Specimen Narrative Performed At Transthoracic Echocardiography Report (T TE) [facility] ECHO HEART[facility] Demographics Patient Name CICI CALDERON Date of Study 01/15/2020 ALYSE Gender Female Visit Number [id number] Race Unknown Room Number 1515 Number Date of 1955 Referring Physician Ren Hernandez MD Age 64 year(s) Economic Specialist Lisa Bautista [facility] S Interpreting Jai grajeda MD Physician Procedure Type of Study TTE [...] Study 01/15/2020 ALYSE Gender Female Visit Number [id number] Race Unknown Room [facility] 1515 Number Date of 1955 Referri Physician Ren [...] l/min/m^2 Performing Organization Address City/State/Zipcode Phone Number [facility] Carotid doppler bilateral (01/15/2020 2:41 PM CDT) [facility] nature Ejection Fraction [facility] Specimen Impressions Performed At Right Impression [facility] 1. The internal, common and external [...] Performed At LAB - Carotid Duplex Study [facility] ECHO [facility]ART[facility] Demographics Patient Name CICI CALDERON Date of Study 01/15/2020 ALYSE Age 64 Visit Number [id number] Gender Female Accession Number [id number] Date of 1955 Referring [facility] Room Number 1515 Physician Economic Specialist Herbert Lechuga Interpreting Chelsea Resendez T Physician Procedure Type of Study: Cerebral: [...] Study 01/15/2020 ALYSE Age 64 Visit Number [id number] Gen margarita Female Accession Number [id number] Ramirez e of 1955 Referring Eliecer Todd m Number [id number] Physician Economic Specialist Herbert Lechuga Int erpreting Chelsea Resendez, T Alvin foss MD [...] City/State/Zipcode Phone Number [facility] Hepatitis panel, acute (01/15/2020 8:32 AM CDT) Pathologist Sig nature Hep A IgM Nonreactive Nonreactive [facility] Hep B C IgM Nonreactive Nonreactive [facility] Hepatitis C Ab Nonreactive Nonreactive [facility] HBsAg Screen Nonreactive Nonreactive [facility] Specimen Blood Narrative Performed At Study Director ID - [facility] Performing Organization Address [facility] Phone Number [address] [address] CENTER Ammonia (01/15/2020 8:32 AM CDT) Pathologist Sig nature Ammonia 19 18 - 72 mol/L [facility] Specimen Blood Narrative Performed At Study Director ID - [facility] Performing Organization Address [facility] Phone Number [address] [address] [place] Uric acid (01/15/2020 3:56 AM CDT) Pathologist Sig nature Uric Acid 15.7 (H) 2.6 - 7.2 mg/dL [facility] Specimen Blood Narrative Performed At Study Director ID - [facility] Specimen moderately icteric Performing Organization Address [facility] Phone Number [address] [address] [place] Gamma Glutamyl Transferase (GGT) (01/15/2020 3:56 AM CDT) Pathologist Sig nature GGT 15 9 - 64 U/L [facility] Specimen Blood Narrative Performed At Study Director ID - [facility] Specimen moderately icteric Performing Organization Address [facility] Phone Number [address] [address] [place] Lipid panel (01/15/2020 3:56 AM CDT) Pathologist Sig nature Triglycerides 86 mg/dL [facility] Cholesterol 101 mg/dL [facility] ICAL YUMA HDL 12 mg/dL [facility] LDL Calculated 72 mg/dL [facility] Specimen Blood Narrative Performed At Triglyceride Reference Range: [facility] Low Risk <150 Borderline 150-199 High Risk 200-499 Very High Risk >=500 Cholesterol Reference Range: Low Risk <200 Borderline 200-239 High Risk >240 HDL Cholesterol Reference Range: Low Risk >=60 High Risk <40 LDL Cholesterol Reference Range: Optimal <100 Near Optimal 100-129 Borderline 130-159 High 160-189 Very High >=190 Study Director ID - NTP Specimen moderately icteric Performing Organization Address City/State/Zipcode Phone Number [facility] [address] [place] [address] CENTER SARS-CoV2/RT-PCR (Asymptomatic ONLY) (01/14/2020 7:28 PM CDT) SARS-COV2/RT-PCR Not Detected Not Detected, [facility] Negative [facility] SARS-COV-2 [facility] PERFORMING LAB [facility] Specimen Other - Nasopharyngeal wall structure (b arsenio structure) Narrative Performed At Negative results do not preclude SARS-CoV-2 [facility] infection and should not be used [...] the Act. Fact Sheet for Healthcare Providers: https://www.[facility]/Documents/Xpert%20Xpre ss%20SARS%20CoV-2/Fact%20Sheets/302-3802%20SAR S-COV-2%20HEALTHCARE%20PROVIDERS%20FACT%20SHEE T.pdf Fact Sheet for Healthcare Patients: https://www.[facility] [place]/Documents/Xpert%20Xpre ss%20SARS%20CoV-2/Fact%20Sheets/302-3801%20SAR S-COV-2%20PATIENT%20FACT%20SHEET.pdf Performing Laboratory: [address] [address] Performing Organization Address City/State/Zipcode Phone Number [address] [address] CENTER after 05/26/2019 Insurance Payer Benefit Plan / Subscriber ID Effective Dates Phone Addre ss Type Group AETNA - AETNA MEDICARE [id number] 2019-Matilda [phone] MEDICARE MGD HMO POS PPO t 2 [id number] [place] [address] CDC REVIEW CDC REVIEW [id number] 2020-[place] [address] [place] [address] Advance Directives For more information, please contact: [phone] Code Status Date Activated Date Inactivated Comments Full Code 01/14/2020 8:09 PM 01/26/2020 8:41 PM This code status was determined by: Patient
--- OUTSIDE RECORDS SUMMARY | 2020-05-26 08:05 | XMS REPORT | Continuity of Care Document ---
:1955 Author Organization [facility] t Address [address] [place] [address] Care Team Providers Name Role Phone Nahun Leonard MD Primary Care Physician Rl Attending Clinician Unavailable Baltazar Hernandez Attending Clinician Unavailable [place] Talley RN Attending Clinician Unavailable Alfonso Attending Clinician Unavailable [...] Unavailable RADHA HUNTER Attending Clinician Unavailable Radha Huntre MD Attending Clinician Juana ADRIAN Attending Clinician [...] Date Holli plunkett AETNA - [id number] 2019 [facility] MEDICARE MGD 00:00:00 - [facility] MEDICARE HMO POS [id number] [facility] [id number] [address] CDC REVIEWCDC [id number] 2020 [facility] s [id number] 00:00:00 - Medical /-[place] [address] Problems Condition Condition Condition Status Onset Resolution Last Treating Co mments Source Name Details Category Date Date Treatment Clinician Date Acute Acute Disease Active [facility] liver 01-13kes - failure failure 00:00: Medical 00 [place] Elevated Elevated Disease Active [facility] serum serum 01-10 - creatinine creatinine 00:00: Ne dical 00 Center Other Other Disease Active [facility] ascites ascites 01-10kes - 00:00: Medical 00 Center Cirrhosis Cirrhosis Disease Active 2015-[address] of liver of liver 09-01 Assesschapo Miramontesk es - without without 00:00: t & [...] Last [facility] hypertensi hypertensi 09-01 Assesschapo Miramonteskes - on on 00:00: t & Plan: Medical 00 Manifeste Center d by splenmilly claudioy on imaging. She does not have varices, ascites or HE. 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 09-01 Assesschapo Arteaga - 00:00: t & [...] 2015-[address] for for 09-01 [facility] [...] Last [facility] mass, left mass, left 2 Assessmen Lu - 00:00: t & Plan: Medical 00 [...] Allergy 2 [facility] - 00:[facility]: Medical 00 [place] Levoflox Drug Active Other (See 2015-[address] acin Intolera Comments) 09-01 and - nce 00:00: diarrhea Medical 00 [place] Sulfa Drug Active Rash 2015-[address] [facility] (Sulfona Allergy 09-01 [facility] - mide 00:00: Medical Antibiot 00 Center ics) Tetracyc Drug Active Hives 2015-[address] [facility] lines Allergy 09-01 [facility] - 00:00: Medical 00 [place] Tetracyc Adverse Active hives [facility] line HCl Reaction kes - [facility] Levaquin Adverse Active vomiting/jocy [facility] HI [facility] Reaction r[facility] - [facility] Erythrom Adverse Active vomiting/jocy C [facility] ycin Reaction [facility] ent Clinics Family History Family Member Diagnosis Comments Start Date Stop Date Source Natural brother Diabetes [facility] Natural brother Hypertension [facility] Natural brother Arthritis [facility] Natural brother COPD [facility] Natural father Diabetes [facility] Natural father Heart disease [facility] Natural mother Diabetes [facility] Natural mother Heart disease [facility] Natural sister Cancer [facility] Social History Social Habit Start Date Stop Date Quantity Comments Source Sex Assigned [facility] Tobacco use and 2020-04-11 2020-04-11 Never used [facility] - exposure 00:00:00 00:00:00 [facility] Alcohol intake 2020-04-11 2020-04-11 Current drinker [facility] Holli carcamo [facility] - 00:00:00 00:00:00 of alcohol [facility] (finding) Alcohol Comment 2016-07-01 2016-07-01 social last drink Mark Smiley [facility] - 00:00:00 00:00:00 06/15/16 [facility] Smoking Status Start Date Stop Date Source Former smoker 2020-04-11 00:00:00 2020-04-11 00:00:00 [facility] Medications Ordered Filled Start Stop Current Ordering Indication Dosage Frequency Signature Comments Components Source Medication Medication Date Date Medication? Clinician (SIG) Name Name spironolact Yes 25mg QD Take [address] [facility] [address] one 04-11 by mouth [facility] - (ALDACTONE) 09:45: daily. Medi steven 25 MG 26 Center tablet magnesium Yes Magnesium 400mg QD Take 1 [facility] oxide 04-11 deficiency tablet [facility] - (MAG-OX) 00:00: (400 mg Medica l 400 mg 00 total) by [place] (241.3 mg mouth magnesium) daily. tablet calcitrioL Yes Cirrhosis .5ug QD Take [facility] (ROCALTROL) 04-11 of liver capsule L es - 0.5 MCG 00:00: without (0.5 mcg Med ical capsule 00 ascites, total) by [facility] ter unspecified mouth hepatic daily. cirrhosis type (HCC) ergocalcife 2020- Yes Vitamin D [id number] Q7D Take [address] rol 04-11 deficiency capsule [facility] - (ERGOCALCIF 00:00: 23:59 (50,000 Me dical MARIN) 1,250 00 :00 Units Center mcg (50,000 total) by unit) mouth once capsule a week. folic acid 2020- Yes Cirrhosis 1mg QD Take 1 [facility] (FOLVITE) 04-11 of liver tablet (1 [facility] - MG tablet 00:00: 23:59 without mg total) Medical 00 :00 ascites, by mouth Center unspecified daily. hepatic cirrhosis type (HCC) ranitidine 2019-2019- No Screening 150mg Take [address] [facility] [...] 2 (two) times daily. ergocalcife 2019- No [id number] Q7D Take [address] rol [...] :00 by mouth Center daily. furosemide 2019-0 2019- No 40mg Q.5D Take 40 mg [facility]I [...] Center mouth 2 (two) times daily. lactulose 2019-0 Yes 20g Q.[id number] Take [address] (CHRONULAC) 01-25 [id number] mLs (20 g [facility] - 20 gram/30 00:00: 3D total) by Ne dical mL solution 00 mouth 3 Cente [...] magnesium) daily. tablet midodrine 2020- No 2.5mg Q.[id number] Take [address] (PROAMATINE 01-25 [id number] tablet [facility] - ) 2.5 MG 00:00: [...] [facility] Sulfate HFA Sulfate HFA 4-09 [place] needed [facility] - 00:00: [facility] 00 [facility] Cimetidine Cimetidine Yes Mitzy [address] [place] as needed [facility] - [facility] Calcitriol Calcitriol Yes Mitzy [address] [place] [facility]ukes - [facility] ent [facility]ics Lactulose Lactulose Yes Mitzy [address] [place] [facility] - [facility] Xifaxan Xifaxan Yes Mitzy [address] [place] [facility] - [facility] Folic Acid Folic Acid Yes Mitzy [address] [place] [facility] - [facility] Spironolact Spironolact Yes Mitzy [address] one one [place] [facility] - [facility] Vitamin D2 Vitamin D2 Yes Mitzy [address] [place] [facility] - [facility] MagOx 400 MagOx 400 Yes Mitzy [address] [place] with food kes - Memoria l [facility] Tramadol Tramadol Yes Mitzy [address] HCl HCl [place] as needed [facility] - [facility] Midodrine Midodrine Yes Mitzy [address] HCl HCl [place] kes - Memoria l [facility] Pantoprazol Pantoprazol Yes Mitzy [address] e Sodium e Sodium [place] mixed with Lukes - apple Memoria juice or l applesauce [facility] ent Clinics Immunizations Ordered Filled Immunization Date Status Comments [facility] e Immunization Name Name Hepatitis A (adult) Hepatitis A (adult) 2020-02-21 Completed [facility] - 00:00:00 [facility] Hepatitis B (adult) Hepatitis B (adult) 2020-02-21 Completed [facility] - 00:00:00 [facility] Vital Signs Vital Name Observation Time Observation Value Comments Source Systolic blood 2020-04-11 09:39:00 104 mm[Hg] [facility] Diastolic blood 2020-04-11 09:39:00 43 mm[Hg] [facility] S [facility] Heart rate 2020-04-11 09:39:00 85 /min [facility] Body temperature 2020-04-11 09:39:00 36.28 Shaneka [facility] Respiratory rate 2020-04-11 09:39:00 18 /min [facility] Body height 2020-04-11 09:39:00 162.6 cm [facility] Body weight 2020-04-11 09:39:00 84.959 kg [facility] BMI 2020-04-11 09:39:00 32.15 kg/m2 [facility] Oxygen saturation in 2020-04-11 09:39:00 95 /min [facility] Arterial blood by Medical Ce nter Pulse oximetry Procedures Procedure Date / Time Performing Clinician Source Performed PROTHROMBIN TIME/INR 2020-05-17 13:41:00 Kristofer Montgomery [facility] COMPREHENSIVE METABOLIC 2020-05-17 13:41:[address] [facility] CBC W/PLT COUNT & AUTO 2020-05-17 13:41:00 AmericaKristofer theodore [facility] BILIRUBIN, DIRECT 2020-05-17 13:41:00 Kristofer Montgomery [facility] PROTHROMBIN TIME/INR 2020-05-09 12:29:00 Kristofer Montgomery [facility] COMPREHENSIVE METABOLIC 2020-05-09 12:29:[address] [facility] CBC W/PLT COUNT & AUTO 2020-05-09 12:29:00 Kristofer Montgomery [facility] BILIRUBIN, DIRECT 2020-05-09 12:29:00 Kristofer Montgomery [facility] PROTHROMBIN TIME/INR 2020-05-02 13:25:00 Kristofer Montgomery [facility] COMPREHENSIVE METABOLIC 2020-05-02 13:25:[address] [facility] CBC W/PLT COUNT & AUTO 2020-05-02 13:25:00 Kristofer Montgomery [facility] BILIRUBIN, DIRECT 2020-05-02 13:25:00 Kristofer Montgomery [facility] PLATELET ESTIMATION 2020-05-02 13:25:00 Kristofer Montgomery [facility] PROTHROMBIN TIME/INR 2020-04-25 13:13:00 AmericaKristofer theodore [facility] COMPREHENSIVE METABOLIC 2020-04-25 13:13:[address] [facility] CBC W/PLT COUNT & AUTO 2020-04-25 13:13:00 AmericaKristofer theodore [facility] BILIRUBIN, DIRECT 2020-04-25 13:13:00 Kristofer Montgomery [facility] PLATELET ESTIMATION 2020-04-25 13:13:00 AmericaKristofer [facility] PROTHROMBIN TIME/INR 2020-04-18 08:56:00 AmericaKristofer [facility] COMPREHENSIVE METABOLIC 2020-04-18 08:56:[address] [facility] CBC W/PLT COUNT & AUTO 2020-04-18 08:56:00 AmericaKristofer theodore [facility] BILIRUBIN, DIRECT 2020-04-18 08:56:00 AmericaKristofer theodore [facility] XR DXA BONE DENSITY STUDY 2020-04-11 11:51:00 Kristofer Montgomery [facility] ALPHA FETOPROTEIN (AFP), 2020-04-11 11:13:00 Sia Riley [facility] TUMOR MARKER [facility] BILIRUBIN, DIRECT 2020-04-11 11:13:00 Sia Riley [facility] COMPREHENSIVE METABOLIC 2020-04-11 11:13:[address] [facility] PROTHROMBIN TIME/INR 2020-04-11 11:13:00 Sia Riley [facility] CBC W/PLT COUNT & AUTO 2020-04-11 11:13:00 Sia Riley [facility] PROTHROMBIN TIME/INR 2020-03-10 08:03:00 Kristofer Montgomery [facility] COMPREHENSIVE METABOLIC 2020-03-10 08:03:[address] [facility] CBC W/PLT COUNT & AUTO 2020-03-10 08:03:00 Kristofer Montgomery [facility] BILIRUBIN, DIRECT 2020-03-10 08:03:00 AmericaKristofer theodore [facility] MISCELLANEOUS LAB ORDER 2020-02-15 12:29:00 AmericaKristofer theodore [facility] MAGNESIUM 2020-02-15 12:29:00 AmericaKristofer theodore [facility] BILIRUBIN, DIRECT 2020-02-15 12:29:00 AmericaKristofer [facility] COMPREHENSIVE METABOLIC 2020-02-15 12:29:[address] [facility] PROTHROMBIN TIME/INR 2020-02-15 12:29:00 AmericaKristofer [facility] CBC W/PLT COUNT & AUTO 2020-02-15 12:29:00 AmericaKristofer [facility] PROTHROMBIN TIME/INR 2020-02-08 10:23:00 AmericaKristofer [facility] COMPREHENSIVE METABOLIC 2020-02-08 10:23:[address] [facility] CBC W/PLT COUNT & AUTO 2020-02-08 10:23:00 AmericaKristofer [facility] BILIRUBIN, DIRECT 2020-02-08 10:23:00 AmericaKristofer [facility] PLATELET ESTIMATION 2020-02-08 10:23:00 AmericaKristofer [facility] PROTHROMBIN TIME/INR 2020-02-01 09:25:00 Kristofer Montgomery [facility] COMPREHENSIVE METABOLIC 2020-02-01 09:25:[address] [facility] CBC W/PLT COUNT & AUTO 2020-02-01 09:25:00 AmericaKristofer [facility] BILIRUBIN, DIRECT 2020-02-01 09:25:00 AmericaKristofer theodore [facility] RHYTHM STRIP - SCAN 2020-01-27 10:00:12 Provider, Default [facility] CARDIAC CATH REPORT - SCAN 2020-01-27 10:00:07 Provider, Default [facility] TRANSFUSE LEUKO-REDUCED 2020-01-26 22:41:07 Miguel Angel Kaylin [facility] METANEPHRINES 2020-01-26 14:51:00 Blanca Hartley [facility] HEPATIC FUNCTION PANEL 2020-01-26 03:50:00 [facility] PROTHROMBIN TIME/INR 2020-01-26 03:50:00 [facility] CALCIUM, IONIZED 2020-01-26 03:50:00 [facility]OLIC 2020-01-26 03:50:00 [facility] 2020-01-26 03:50[facility] MAGNESI[facility] 2020-01-26 03:50:00 Ju[facility] CBC W/PLT COUNT & AUTO 2020-01-26 03:50:00 Florian Kinney [facility] HEPATIC FUNCTION PANEL 2020-01-25 03:47:00 [facility] PROTHROMBIN TIME/INR 2020-01-25 03:47:00 [facility] BASIC METABOLIC PANEL (7) 2020-01-25 03:47:00 Juana [facility] MAGNESIUM 2020-01-25 03:47:00 Juana [facility] CBC W/PLT COUNT & AUTO 2020-01-25 03:47:00 Florian Kinney [facility] (CELLAVISION MANUAL DIFF) 2020-01-25 03:47:00 Florian Kinney [facility] TRANSFUSION SERVICE REPORT 2020-01-24 18:00:13 Provider, [facility] - - SCAN Scanning [facility] PULMONARY FUNCTION - SCAN 2020-01-24 13:10:09 Provider, [facility] SPIROMETRY 2020-01-24 10:41:00 Mariana Lin [facility] DLCO (SINGLE BREATH 2020-01-24 10:41:00 [facility] DIFFUSION) Medical Center LUNG VOLUMES 2020-01-24 10:41:00 Mariana Lin [facility] 6 MINUTE WALK(FOR LUNG 2020-01-24 10:20:00 Mariana Lin [facility] - TRANSPLANT ONLY) [facility] HEPATIC FUNCTION PANEL 2020-01-24 03:57:00 Roscoe Ahmadi [facility] PROTHROMBIN TIME/INR 2020-01-24 03:57:00 GaldinoRoscoe [facility] CALCIUM, IONIZED 2020-01-24 03:57:00 Kermit Nicole [facility] PHOSPHORUS 2020-01-24 03:57:00 Kermit Nicole [facility] BASIC METABOLIC PANEL (7) 2020-01-24 03:57:00 Leena Arias [facility] MAGNESIUM 2020-01-24 03:57:00 Juana [facility] CBC W/PLT COUNT & AUTO 2020-01-24 03:57:00 Leena Arias [facility] PREPARE LEUKO-REDUCED RBC 2020-01-23 23:54:00 Vitor Orozco [facility] TRANSFUSION SERVICE REPORT 2020-01-23 18:00:37 Bozena Lopes [facility] HEPATIC FUNCTION PANEL 2020-01-23 04:32:00 [facility] PROTHROMBIN TIME/INR 2020-01-23 04:32:00 Franklin Roscoe [facility] B-TYPE NATRIURETIC FACTOR 2020-01-23 04:32:00 Kermit Nicole [facility] (BNP) [facility] CALCIUM, IONIZED 2020-01-23 04:32:00 Kermit Nicole [facility] PHOSPHORUS 2020-01-23 04:32:00 Kermit Nicole [facility] BASIC METABOLIC PANEL (7) 2020-01-23 04:32:00 Leena Arias [facility] MAGNESIUM 2020-01-23 04:32:00 Leena Arias [facility] CBC W/PLT COUNT & AUTO 2020-01-23 04:32:00 Arias, [facility] (CELLAVISION MANUAL DIFF) 2020-01-23 04:32:00 Juana [facility] PREPARE LEUKO-REDUCED 2020-01-22 23:54:00 [facility]n [facility] TRANSFUSION SERVICE REPORT 2020-01-22 18:01:00 Provider, [facility] TRANSFUSE LEUKO-REDUCED RED 2020-01-22 14:30:53 PamVitor Valentine [facility] - BLOOD CELLS [facility] CORTISOL 2020-01-22 08:23:00 Ismaily, Christine [facility] CALCIUM, IONIZED 2020-01-22 04:35:00 Russ Ha [facility] HEPATIC FUNCTION PANEL 2020-01-22 04:35:00 Galdnio [facility] BASIC METABOLIC PANEL (7) 2020-01-22 04:35:00 Juana [facility] MAGNESIUM 2020-01-22 04:35:00 Juana [facility] CBC W/PLT COUNT & AUTO 2020-01-22 04:35:00 Juana [facility] (CELLAVISION MANUAL DIFF) 2020-01-22 04:35:00 Juana [facility] PROTHROMBIN TIME/INR 2020-01-22 04:34:00 Galdino [facility] DIRECT AHG (KRISTI)/DIRECT 2020-01-22 04:34:00 [facility], [facility], MANUAL 2020-01-22 04:34:[address] [facility] TRANSFUSION SERVICE REPORT 2020-01-21 18:00:48 Provider, [facility] BODY FLUID CULTURE + GRAM 2020-01-21 16:54:00 Kaylin Michelle [facility] BODY FLUID CELL COUNT WITH 2020-01-21 16:54:00 Kaylin Michelle [facility] US PARACENTESIS 2020-01-21 16:40:00 Galdino [facility] MISCELLANEOUS LAB ORDER 2020-01-21 09:31:00 Isbrandonsedrick [facility] HEPATIC FUNCTION PANEL 2020-01-21 09:31:00 [facility] PROTHROMBIN TIME/INR 2020-01-21 09:31:00 Franklin [facility] COMPREHENSIVE METABOLIC 2020-01-21 09:31:00 [facility] 2020-01-21 09:31:00 [facility] MAG[facility]UM 2020-01-21 09:31:00 Leena Arias [facility] CORTISOL 2020-01-21 09:31:00 Issrikanth [facility] RETICULOCYTE COUNT 2020-01-21 09:31:[address] [facility] PERIPHERAL BLOOD SMEAR - 2020-01-21 09:31:00 Amn Miguel Angela [facility] CBC W/PLT COUNT & AUTO 2020-01-21 09:31:00 [facility] 2020-01-21 09:10:00 [facility] METANEPHRINES, 24 HOUR 2020-01-20 22:51:00 [facility] URINE [facility] CATECHOLAMINES, 2020-01-20 22:51:00 [facility] - FRACTIONATED, 24HR URINE Medical Center TYPE AND SCREEN, AUTOMATED 2020-01-20 20:39:00 Miguel Angel, Kaylin [facility] XR CHEST 1 VIEW 2020-01-20 20:28:00 [facility] PORTABLE/BEDSIDE [facility] TRANSFUSION SERVICE REPORT 2020-01-20 18:01:30 Bozena Lopes [facility] - - SCAN Scanning [facility] MR ABDOMEN WITHOUT IV 2020-01-20 17:54:00 [facility] CONTRAST [facility] HEPATIC FUNCTION PANEL 2020-01-20 04:10:00 [facility] PROTHROMBIN TIME/INR 2020-01-20 04:10:00 Galdino [facility] CALCIUM, IONIZED 2020-01-20 04:10:00 Leland [facility] COMPREHENSIVE METABOLIC 2020-01-20 04:10:00 Leland [facility] PHOSPHORUS 2020-01-20 04:10:00 Leland [facility] MAGNESIUM 2020-01-20 04:10:00 Leena Arias [facility] CBC W/PLT COUNT & AUTO 2020-01-20 04:10:00 Leland [facility] (CELLAVISION MANUAL DIFF) 2020-01-20 04:10:[address] [facility] PREPARE LEUKO-REDUCED RBC 2020-01-19 23:54:00 Miguel Angel Kaylin [facility] URINALYSIS W/ MICROSCOPIC 2020-01-19 23:19:[address] [facility] SODIUM, RANDOM URINE 2020-01-19 23:19:00 Leland [facility] BLOOD CULTURE 2020-01-19 21:45:00 Galdino [facility] BLOOD CULTURE 2020-01-19 21:44:00 Franklin [facility] [id number] 2020-01-19 21:43:[address] [facility] TRANSFUSION SERVICE REPORT 2020-01-19 18:01:08 Bozena Lopes [facility] - - SCAN Scanning [facility] R & L CATH / CORONARY 2020-01-19 16:30:00 Brian Browning [facility] - ANGIOS (+/- LV) [facility] BLOOD GAS, ARTERIAL 2020-01-19 15:44:00 Kristofer Montgomery [facility] CRYPTOCOCCAL ANTIGEN 2020-01-19 15:04:00 Kristofer Montgomery [facility] MUMPS ANTIBODY, IGG 2020-01-19 15:04:00 Kristofer Montgomery [facility] RUBELLA ANTIBODY, IGG 2020-01-19 15:04:00 Kristofer Montgomery [facility] RUBEOLA ANTIBODY IGG 2020-01-19 15:04:00 Kristofer Montgomery [facility] VARICELLA ZOSTER ANTIBODY, 2020-01-19 15:04:00 Kristofer Montgomery [facility] PROTHROMBIN TIME/INR 2020-01-19 11:00:00 Franklin [facility] US BREAST BILATERAL 2020-01-19 09:10:00 Kristofer Montgomery [facility] HEPATIC FUNCTION PANEL 2020-01-19 04:11:00 [facility] CALCIUM, IONIZED 2020-01-19 04:11:00 Leland [facility] COMPREHENSIVE METABOLIC 2020-01-19 04:11:00 [facility] 2020-01-19 04:11:00 Leland [facility] B-TYPE NATRIURETIC FACTOR 2020-01-19 04:11:00 Russ Ha [facility] (BNP) [facility] ALDOSTERONE 2020-01-19 04:11:00 [facility] RENIN, PLASMA 2020-01-19 04:11:00 [facility] METANEPHRINES 2020-01-19 04:11:00 [facility] MAGNESIUM 2020-01-19 04:11:00 Juana [facility] CBC W/PLT COUNT & AUTO 2020-01-19 04:11:00 Ha [facility] CT ABDOMEN WITHOUT IV 2020-01-19 00:40:00 Franklin [facility] CONTRAST [facility] US RENAL COMPLETE 2020-01-19 00:20:00 Franklin [facility] PREPARE LEUKO-REDUCED 2020-01-18 23:54:[address] [facility] PLATELETS [facility] URINALYSIS W/ MICROSCOPIC 2020-01-18 20:49:00 Ha, [facility] SODIUM, RANDOM URINE 2020-01-18 20:49:00 Leland [facility] PROTEIN, RANDOM URINE 2020-01-18 20:49:00 Leland [facility] CREATININE, RANDOM URINE 2020-01-18 20:49:00 [facility] EOS[facility]AR, URINE 2020-01-18 20:49:00 [facility] TRANSF[facility]PORT 2020-01-18 18:31:51 ProviderBozena [facility] - - SCAN Scanning [facility] TRANSFUSE LEUKO-REDUCED RED 2020-01-18 13:21:26 Miguel Angel [facility] BLOOD CELLS [facility] NM MYOCARDIAL PERFUSION 2020-01-18 09:20:00 [facility] [facility] - PET/CT (REST & STRESS) Medical C enter TREADMILL 2020-01-18 08:57:35 Unknown, Hl7 [facility] TOLERANCE(NON-NUCLEAR Medical Ce nter TREADMILL) ECG 12-LEAD 2020-01-18 08:46:42 Unknown, Hl7 [facility] BASIC METABOLIC PANEL (7) 2020-01-18 06:10:00 Juana [facility] MAGNESIUM 2020-01-18 06:10:00 [facility] T SPOT TB 2020-01-18 06:10:00 Miguel Angel [facility] HEPATIC FUNCTION PANEL 2020-01-18 06:10:00 Roscoe Ahmadi [facility] CBC W/PLT COUNT & AUTO 2020-01-18 06:10:00 [facility] (CELLAVISION MANUAL DIFF) 2020-01-18 06:10:00 [facility] ECG 12-LEAD 2020-01-17 11:05:03 Brian Browning [facility] REPORT OF PROCEDURE - 2020-01-17 09:11:05 Sylvie George [facility] - [facility] REPORT OF PROCEDURE - 2020-01-17 08:39:23 [facility] TISSUE EXAM 2020-01-17 08:15:00 Doris [facility] TRANSFUSE LEUKO-REDUCED 2020-01-17 08:04:58 Juana [facility] UPPER ENDOSCOPY,BIOPSY 2020-01-17 07:55:00 Doris [facility] COLONOSCOPY 2020-01-17 07:55:00 Doris [facility] PROTHROMBIN TIME/INR 2020-01-17 03:56:00 Jacquelin Mary [facility] BASIC METABOLIC PANEL (7) 2020-01-17 03:56:00 [facility] MAGNESIUM 2020-01-17 03:56:00 [facility] CBC W/PLT COUNT & AUTO 2020-01-17 03:56:00 [facility] (CELLAVISION MANUAL DIFF) 2020-01-17 03:56:00 [facility]ana [facility] TRANSFUSION SERVICE REPORT 2020-01-16 18:00:27 [facility] BLOOD CULTURE 2020-01-16 12:25:00 Shady Gonzáles [facility] LACTATE DEHYDROGENASE (LDH) 2020-01-16 12:24:00 [facility] RETICULOCYTE COUNT 2020-01-16 12:23:00 Iván [facility] BLOOD CULTURE 2020-01-16 11:25:00 [facility] ANTIGEN WITH HIV-1/2 2020-01-16 11:25:00 Shady Gonzáles [facility] VITAMIN B12 AND FOLATE 2020-01-16 11:25:00 Iván [facility] HAPTOGLOBIN 2020-01-16 11:25:00 [facility] US ABDOMINAL WITH DOPPLER 2020-01-16 06:30:00 Shady Gonzáles [facility] PROTHROMBIN TIME/INR 2020-01-16 03:38:00 Graciela Stone [facility] HEPATIC FUNCTION PANEL 2020-01-16 03:38:[address] [facility] BASIC METABOLIC PANEL (7) 2020-01-16 03:38:00 Leena Arias [facility] MAGNESIUM 2020-01-16 03:38:00 Leena Arias [facility] CBC W/PLT COUNT & AUTO 2020-01-16 03:38:00 [facility] DRUG SCREEN, URINE, 2020-01-15 21:52:00 Shady Gonzáles [facility] BLOOD TYPING, AUTOMATED 2020-01-15 18:16:00 Shady Gonzáles [facility] CT CHEST WITHOUT IV 2020-01-15 17:54:00 Shady Gonzáles [facility] XR CHEST 2 VIEWS 2020-01-15 16:57:00 Shady Gonzáles [facility] XR MANDIBLE 4 VIEWS MIN 2020-01-15 16:39:00 Shady Gonzáles [facility] VITAMIN D, 25-HYDROXY 2020-01-15 16:17:00 EliecerShady davidson [facility] COMPREHENSIVE METABOLIC 2020-01-15 16:17:00 Shady Gonzáles [facility] BILIRUBIN, DIRECT 2020-01-15 16:17:00 Shady Gonzáles [facility] CALCIUM, IONIZED 2020-01-15 16:17:00 EliecerShady davidson [facility] ZINC 2020-01-15 16:17:00 Shady Gonzáles [facility] ANTI-NUCLEAR ANTIBODY (REILLY) 2020-01-15 16:17:00 EliecerShady davidson [facility] ACTIN (SMOOTH MUSCLE) 2020-01-15 16:17:00 EliecerShady davidson [facility] - ANTIBODY, IGG [facility] MITOCHONDRIA M2 ANTIBODY 2020-01-15 16:17:00 [facility] (IGG[facility] IRON, TIBC, % SAT. (WITHOUT 2020-01-15 16:17:00 Shady Gonzáles [facility] FERRITIN) [facility] FERRITIN 2020-01-15 16:17:00 Shady Gonzáles [facility] TRANSFERRIN 2020-01-15 16:17:00 Shady Gonzáles [facility] SJMSC-6-HZKNVXJNZMA\\, SERUM 2020-01-15 16:17:00 Shady Gonzáles [facility] CERULOPLASMIN 2020-01-15 16:17:00 Shady Gonzáles [facility] ALPHA FETOPROTEIN (AFP), 2020-01-15 16:17:00 Shady Gonzáles [facility] TUMOR MARKER [facility] CARCINOEMBRYONIC ANTIGEN 2020-01-15 16:17:00 [facility] (CEA[facility] CARBOHYDRATE ANTIGEN 19-9 2020-01-15 16:17:00 Shady Gonzáles [facility] (CA 19-9) [facility] HEMOGLOBIN A1C 2020-01-15 16:17:00 Shady Gonzáles [facility] TSH 2020-01-15 16:17:00 Shady Gonzáles [facility] T3 2020-01-15 16:17:00 Shady Gonzáles [facility] T4 2020-01-15 16:17:00 Shady Gonzáles [facility] ETHANOL 2020-01-15 16:17:00 EliecerShady davidson [facility] FIBRINOGEN 2020-01-15 16:17:00 Shady Gonzáles [facility] PROTHROMBIN TIME/INR 2020-01-15 16:17:00 Shady Gonzáles [facility] APTT 2020-01-15 16:17:00 Shady Gonzáles [facility] HEPATITIS A ANTIBODY, IGM 2020-01-15 16:17:00 Shady Gonzáles [facility] HEPATITIS B SURFACE ANTIGEN 2020-01-15 16:17:00 EliecerShady davidson [facility] HEPATITIS B SURFACE 2020-01-15 16:17:00 EliecerShady davidson [facility] ANTIBODY [facility] HEPATITIS B CORE ANTIBODY, 2020-01-15 16:17:00 EliecerShady davidson [facility] TOTAL [facility] HEPATITIS B CORE ANTIBODY, 2020-01-15 16:17:00 EliecerShady davidson [facility] HEPATITIS C ANTIBODY 2020-01-15 16:17:00 EliecerShady davidson [facility] RPR 2020-01-15 16:17:00 Shady oGnzáles [facility] CYTOMEGALOVIRUS ANTIBODY, 2020-01-15 16:17:00 EliecerShady davidson [facility] IGG [facility] CYTOMEGALOVIRUS ANTIBODY, 2020-01-15 16:17:00 Shady Gonzáles [facility] IGM [facility] EBV ANTIBODY, IGM 2020-01-15 16:17:00 EliecerShady davidson [facility] TYPE AND SCREEN, AUTOMATED 2020-01-15 16:17:00 Shady Gonzáles [facility] 2D ECHO W/ DOPPLER 2020-01-15 14:45:[address] [facility] (CW/PW/COLOR) [facility] CAROTID DOPPLER BILATERAL 2020-01-15 14:41:00 [facility] SODIUM, RANDOM URINE 2020-01-15 12:46:00 Graciela Stone [facility] CREATININE, RANDOM URINE 2020-01-15 12:46:00 Graciela Stone I [facility] AMMONIA 2020-01-15 08:32:00 Graciela Stone [facility] HEPATITIS PANEL, ACUTE 2020-01-15 08:32:00 Graciela Stone [facility] BASIC METABOLIC PANEL (7) 2020-01-15 03:56:00 Graciela Stone [facility] PROTHROMBIN TIME/INR 2020-01-15 03:56:[address] [facility] HEPATIC FUNCTION PANEL 2020-01-15 03:56:00 [facility] 2020-01-15 03:56:00 [facility] URIC ACID 2020-01-15 03:56:00 Eliecer [facility] GAMMA GLUTAMYL TRANSFERASE 2020-01-15 03:56:00 Eliecer [facility] (GGT) [facility] PHOSPHORUS 2020-01-15 03:56:00 Eliecer [facility] LIPID PANEL 2020-01-15 03:56:00 Eliecer [facility] CBC W/PLT COUNT & AUTO 2020-01-15 03:56:00 [facility]LL[facility] DIFF) 2020-01-15 03:56:00 Graciela Stone [facility] BASIC METABOLIC PANEL (7) 2020-01-14 21:59:00 Graciela Stone [facility] PROTHROMBIN TIME/INR 2020-01-14 21:59:[address] [facility] HEPATIC FUNCTION PANEL 2020-01-14 21:59:00 Ramone Graciela [facility] CBC W/PLT COUNT & AUTO 2020-01-14 21:59:00 Ramone [facility] SARS-COV2/RT-PCR ([facility] & 2020-01-14 19:28:00 Tameka Hunter CH I [facility] - REF LABS) [facility] BASIC METABOLIC PANEL (7) 2020-01-03 14:34:[address] [facility] HEPATIC FUNCTION PANEL 2020-01-03 14:34:00 Kadie Larry [facility] PROTHROMBIN TIME/INR 2020-01-03 14:34:[address] [facility] ALPHA FETOPROTEIN (AFP), 2020-01-03 14:34:[address] [facility] - TUMOR MARKER [facility] CBC W/PLT COUNT & AUTO 2020-01-03 14:34:[address] [facility] [facility] - DIFFERENTIAL [facility] Plan of Care Planned Activity Planned Date Details Comments Source Future Scheduled 2030-01-16 Scre[facility] Test 00:00:00 malignant neoplasm of [facility] colon (procedure) [code = 373605212] Future Scheduled 2023-01-[address] [facility] - Test 00:00:00 (procedure) [code = Medical Center 07159710] Future Scheduled 2020-03-28 INFLUENZA VACCINE (#1) [facility]00 [code = INFLUENZA Medical Ce nter VACCINE (#1)] Future Scheduled 2020-02-26 INFL[facility]ZA VACCINE [place] [facility] 00:[facility]:00 [code = INFLUENZA VACCINE] Future Scheduled 2019-07-28 Medicare IPPE (WELCOME [facility] Test 00:00:00 TO MEDICARE) [code = Medical Center Medicare IPPE (WELCOME TO MEDICARE)] Future Scheduled 2019 65+ PNEUMOCOCCAL [place] [facility] Test 00:00:00 VACCINE (1 of 1 - PPSV23) [code = 65+ PNEUMOCOCCAL VACCINE (1 of 1 - PPSV23)] Future Scheduled 2019 PNEUMOCOCCAL 65+ Y[facility] - Test 00:00:00 (2 of 2 - PPSV23) Medical Ce nter [code = PNEUMOCOCCAL 65+ YRS (2 of 2 - PPSV23)] Future Scheduled 2004 BREAST CANCER [facility] Test 00:00:00 SCREENING [code = BREAST CANCER SCREENING] Future Scheduled 2004 COLONOSCOPY [facility]CRE[facility]ING [facility] Test 00:00:00 [code = COLONOSCOPY SCREENING] Future Scheduled 2004 SHINGLES VACCINES (#1) [facility] [place] Test 00:00:00 [code = SHINGLES VACCINES (#1)] Future Scheduled 1975 Scre[facility] for [facility] Test 00:00:00 malignant neoplasm of cervix (procedure) [code = 209873360] Future Scheduled [address] [facility] - Test 00:00:00 [facility] [code = 780406865] Future Scheduled [address] [facility] - Test 00:00:00 [facility] breast (procedure) [code = 104452269] Encounters Start End Encounter Admission Attending Care Care Encounter Source Date/Time Date/Time Type Type Clinicians Facility Department ID 2020-05-02 2020-05-02 [facility] [id number]00 kes - [facility] ent Clinics 2020-04-19 2020-04-19 [facility] [id number] 2020-02-21 2020-02-21 [facility] [id number] 16:00:00 16:00:00 [facility] 2020-02-14 2020-02-14 [facility] [id number] 10:00:00 10:00:00 [facility] 2020-02-03 2020-02-03 [facility] [id number] 11:48:00 11:48:00 [facility] Medicine Outpati ent Clinics 2020-01-13 2020-01-13 [facility] [id number] 14:40:00 14:40:00 [facility] 2020-01-03 2020-01-03 Transition [place] [id number] 00:00:00 00:00:00 of Care Aye [place] [id number] Francine [id number] 2019-12-28 2019-12-31 [facility] [id number] 21:39:45 13:10:00 Encounter Jacklyn Lewis [id number] [place] [id number] [place] [id number] 2019-11-03 2019-11-03 [facility] [id number] 13:20:00 13:20:00 [facility] Medicine Outpati ent Clinics 2019-09-10 2019-09-10 [facility] [id number] 09:30:00 09:30:00 t [facility] Medicine Outpati ent Clinics 2019-08-31 2019-08-31 [facility] [id number] 08:00:00 08:00:00 [facility] Medicine Outpati ent Clinics 2019-08-24 2019-08-24 [facility] [id number] 10:41:00 10:41:00 t [facility] Medicine Outpati ent Clinics 2019-08-19 2019-08-19 [facility] [id number] 13:00:00 13:00:00 [facility] Medicine Outpati ent Clinics Results Test Description Test Time Test Comments Results Result Comments Source Comprehensive metabolic panel 2020-05-17 19:12:00 Test Item Value Reference Range Interpretation Comme nts Glucose (test code = 96 mg/dL 65-139 Non-fasting ) reference inter beatriz BUN (test code = 33 mg/dL 7-25 H 20101128) Creatinine (test code = 2.32 mg/dL 0.5-0.99 H For patients >49 years 20130920) of age, the ref erence limitfor Creati nine is approximately 1 3% higher for peopleident ified as -Marisela n. eGFR If NonAfricn Am 21 > OR = 60 L (test code = 3343341) mL/min/1.73m2 eGFR If Africn Am (test 25 > OR = 60 L code = 5319720) mL/min/1.73m2 BUN/Creatinine Ratio 14 6- 22 (calc) (test code = 3504624) Sodium (test code = 136 mmol/L 135-482 1713723) Potassium, Serum (test 4.6 mmol/L 3.5-5.3 code = 1935942) Chloride (test code = 106 mmol/L 98-613 7863094) Carbon Dioxide, Total 21 mmol/L 20-32 (test code = 8582110) Calcium, Serum (test 9.7 mg/dL 8.6-10.4 code = 4097918) Protein, Total, Serum 5.5 g/dL 6.1-8.1 L (test code = 20101202) Albumin (test code = 3.1 g/dL 3.6-5.1 L ) GLOBULIN (QUEST) (test 2.4 1.9- 3.7 g/dL code = 2970592) (calc) Albumin Globulin Ratio 1.3 1.0- 2.5 (calc) (test code = 1759-0) Bilirubin, Total (test 3.1 mg/dL 0.2-1.2 H code = 20101204) Alkaline Phosphatase, S 73 U/L 37-153 (test code = 6768-6) AST (SGOT) (test code = 29 U/L 10-35 20101208) ALT (SGPT) (test code = 9 U/L -) VALENTE (test code = VALENTE) FASTING:NOFASTING: NO RAC (test code = RAC) Performing Organization Information: Site ID: RGA [facility]: [facility] Address: [address] [place] [id number] Director: Alonso Carrasco Lab Interpretation Abnormal (test code = 33857-3) [facility], [id number] 19:12:00 Test Item Value Reference Range Interpretation Comments Bilirubin, Total (test 3.1 mg/dL 0.2-1.2 H code = 20101204) Bilirubin, Direct (test 1.1 mg/dL < OR = 0.2 H code = 0484768) Bilirubin, Indirect 2.0 0.2- 1.2 mg/dL H (test code = 8207391) (calc) VALENTE (test code = VALENTE) FASTING:NOFASTING: NO RAC (test code = RAC) Performing Organization Information: Site ID: RGA [facility]: [facility] Address: [address] [place] [address] Director: Alonso Carrasco Lab Interpretation Abnormal (test code = 52292-4) [facility] with platelet count + automated [id number] 19:12:00 Test Item Value Reference Interpretation Comments Range WBC (test code = 3.4 3.8- 10.8 L ) Thousand/uL RBC (test code = 2.35 3.80- 5.10 L 789-8) Million/uL Hemoglobin (test 8.5 g/dL 11.7-15.5 L code = ) Hematocrit (test 23.8 % 35-45 L code = ) MCV (test code = 101.3 fL 80-100 H ) MCH (test code = 36.2 pg 27-33 H ) MCHC (test code = 35.7 g/dL 32-36 ) RDW (test code = 12.5 % 11-15 ) Platelets (test 48 140- 400 L code = ) Thousand/uL MPV (test code = 10.9 fL 7.5-12.5 1220440) # Neutros (test 1863 1,500 - 7,800 code = 20200220) cells/uL # Lymphs (test code 986 850- 3,900 = 731-0) cells/uL # Monos (test code 320 200- 950 = ) cells/uL # Eos (test code = 211 15- 500 711-2) cells/uL # Baso (test code = 20 0- 200 704-7) cells/uL % Neutros (test 54.8 % code = ) % Lymphs (test code 29.0 % = 20200217) % Monos (test code 9.4 % = ) % Eos (test code = 6.2 % 20200215) % Baso (test code = 0.6 % 20200216) Comment(s) (test Review of t he code = 3641578) peripheral s mear revealsdecrease d numbers of platelets.Revie w of peripheral smea r confirmsautomat ed results. VALENTE (test code = FASTING:NOFASTING VALENTE) : NO RAC (test code = Performing RAC) Organization Information: Site ID: [facility] Name: [facility] Address: [address] [place] [phone] Director: Alonso Carrasco Lab Interpretation Abnormal (test code = 45027-6) [facility]th[facility] time/[id number] 19:12:00 Test Item Value Reference Range Interpretation Comments INR (test code = 1.2 H Reference R von ) 0.9-1.1Moderate - intensity Warfarin Therap y 2.0-3.0Higher-i n tensity Warfari n Therapy 3.0-4.0 PT (test code = 12.3 9.0- 11.5 sec H For additio nal ) information, please refer tohttp://educat i on.iRatesdiagnos [employer]/faq/FAQ 07 31(This link is being provided for informational/e d ucational purposes only.) VALENTE (test code = VALENTE) FASTING:NOFASTING: NO RAC (test code = RAC) Performing Organization Information: Site ID: [facility] Name: [facility] Address: [address] [place] [address] Director: Alonso Carrasco Lab Interpretation Abnormal (test code = 74100-2) [facility]ys[facility]ATELET [id number] 18:02:00 Test Item Value Reference Range Interpretation Comments Platelet Estimate (test DECREASED ADEQUATE A code = 16032-2) VALENTE (test code = VALENTE) FASTING:NOFASTING: NO RAC (test code = RAC) Performing Organization Information: Site ID: [facility] Name: [facility] Address: [address] [place] [phone] Director: Alonso Carrasco Lab Interpretation (test Abnormal code = 12711-3) [facility]ysBILIRUBIN, [id number] 15:57:00 Test Item Value Reference Range Interpretation Comments BILIRUBIN DIRECT (BEAKER) (test 1.9 mg/dL 0.1-0.5 H code = 706) Web Marketing Assistant ID - BSCOMPREHENSIVE METABOLIC [id number] 15:57:00 Test Item Value Reference Range Interpretation [...] S NOT APPLICABLE FOR DIALYSIS PATIEN TS. Web Marketing Assistant ID - BSSpecimen moderately ictericAlpha fetoprotein (AFP), tumor marker 2020-04-11 15:41:00 Test Item Value Reference Range Interpretation Comments Alpha-Fetoprotein (test code <2.0 <10.0 ng/mL = 1834-1) VALENTE (test code = VALENTE) Web Marketing Assistant ID - BS Lab Interpretation (test Normal code = 96465-7) [facility]PHA FETOPROTEIN (AFP), TUMOR [id number] 15:41:00 Test Item Value Reference Range Interpretation Comments ALPHA-FETOPROTEIN (BEAKER) (test code < ng/mL <10.0 = 1094) Web Marketing Assistant ID - BSRAD, BONE DENSITY [id number] 13:34:00Referring: Dr. Rowdy Zhang for Exam:->liver transplant waiting listFINAL REPORT Bone density study, 04/11/2020 Clinical History: Screening Bone mineral density measurementLumbar spine0.866 gm/vw1Vybilct neck0.714 gm/cm2 Standard deviation fromyoung adult population [...] or more fragility fractures Signed: Jorge Brooks MDReport Verified Date/Time: 04/11/2020 13:34:32 Reading Location: [address] XR dxa bone density [id number] 13:34:00 Interface, External Ris In - 04/11/2020 1:36 PM CDTFINAL REPORT Bone densitystudy, 04/11/2020 Clinical History: Screening Bone mineral density measurementLumbar spine0.866 gm/xy6Fbxomsr neck0.714 gm/cm2 Standard deviation from young adult [...] or more fragility fractures Signed: Jorge Brooks MDReport Verified Date/Time: 04/11/2020 13:34:32 Reading Location: [address] Reading Room [facility][id number] 13:02:00 Test Item Value Reference Range Interpretation [...] heart valves.CBC with platelet count + automated [id number] 12:52:00 Test Item Value Reference Range Interpretation [...] K/CU MM L MPV (test code = 87179-8) 10.4 fL 9.4-12.3 nRBC (test code = [...] 2801) Lab Interpretation (test code = Abnormal 50199-1) [facility] W/PLT COUNT & AUTO [id number] 12:52:00 Test Item Value Reference Range Interpretation [...] (BEAKER) (test code = 2801) MISCELLANEOUS LAB [id number] 12:14:00 Test Item Value Reference Range Interpretation Comments SCAN RESULT (test code = 1806490) Miscellaneous lab [id number] 12:14:00Scan ResultQUEST NON-INTERFACED LABCHI [facility]2020-07-21 13:17:00 Test Item Value Reference Range Interpretation Comments Magnesium (test code = 1.8 mg/dL 1.6-2.6 11018-7) VALENTE (test code = VALENTE) Web Marketing Assistant ID - LM Lab Interpretation (test Normal code = 63357-9) [facility]2020-07-21 13:17:00 Test Item Value Reference Range Interpretation Comments MAGNESIUM (BEAKER) (test code = 1.8 mg/dL 1.6-2.6 627) Web Marketing Assistant ID - LMCOMPREHENSIVE METABOLIC [id number] 13:17:00 Test Item Value Reference Range Interpretation [...] S NOT APPLICABLE FOR DIALYSIS PATIEN TS. Web Marketing Assistant ID - LMSpecimen moderately ictericBILIRUBIN, [id number] 13:17:00 Test Item Value Reference Range Interpretation Comments BILIRUBIN DIRECT (BEAKER) (test 2.5 mg/dL 0.1-0.5 H code = 706) Web Marketing Assistant ID - LMPROTHROMBIN TIME/[id number] 13:05:00 Test Item Value Reference Range Interpretation [...] mechanical heart valves.CBC W/PLT COUNT & AUTO [id number] 12:59:00 Test Item Value Reference Range Interpretation [...] 0-1 PERCENT (BEAKER) (test code = 2801) [id number] 10:36:00 Test Item Value Reference Interpretation Comments Range Metanephrine (test 46 pg/mL < OR = 57 This mushtaq t was developed code = 0507628) and its anal ytical performance characteristics havebeen determined by [facility].It h as not been cleared or appr jean-claude by FDA. This assay has been validatedpursua nt to the CLIA regulation s and is used for clinic al purposes. Normetanephrine 213 pg/mL < OR = 148 H This test w as developed (test code = and its analyti steven 6997293) performance characteristics havebeen determined by [facility].It h as not been cleared [...] Reference: (1) Latrice Lorenz et al, Plasma General Scrap Worker mogranin A or Urine FractionatedMet anephrines Follow-Up Testi ng Improves the Diagnostic Accuracy of PlasmaFractiona madai Metanephrines f or Pheochromocytom a. The Journal of ClinicalEndocri nology and Metabolism 93 ( 1),91-95, 2007. For addit ional information, pl ease refer tohttp://educat ion.[employer]/f aq/MetFract Free(This link is being provided for informational/e ducational purposes only.) This test was developed a nd its analytical perf ormance characteristics havebeen determined by [facility].It h as not been cleared or appr jean-claude by FDA. This assay has been validatedpursua nt to the CLIA regulation s and is used for clinic al purposes. VALENTE (test code = Performing Lab VALENTE) EZ [facility] [address] [place] [address] Mark Encarnacion MD, PhD, AMINA Lab Interpretation Abnormal (test code = 27996-0) [facility]ys[facility]atecholamines, Fractionated, 24hr [id number] 11:55:00 Test Item Value Reference Interpretation Comments Range TOTAL VOLUME (test 1000 mL code = 7114286) Epinephrine,24 Hr <2 2- 24 mcg/24 h L Result b elow clinical Ur (test code = reportable r von for ) this analyte, w hich is 2 mcg/L.Repo rted result was calc ulated using 2 mcg/L. This test was develo ped and its analyti steven performance characteristics havebeen determ ined by [facility] .It has not been cl eared or approved by FDA. This assay has been validatedpursua nt to the CLIA regula tions and is used for clinical purpos es. Norepinephrine 9 15- 100 mcg/24 L This test was (test code = h developed and i ts 5123358) analytical performance characteristics havebeen determ ined by [facility] .It has not been cl eared or approved by FDA. This assay has been validatedpursua nt to the [place] regula tions and is used for clinical purpos es. Calculated Total 9 26- 121 mcg/24 L This mushtaq t was E+Ne (test code = h developed and its 20190907) analytical performance characteristics havebeen determ ined by [facility] .It has not been cl eared or approved by FDA. This assay has been validatedpursua nt to the [place] regula tions and is used for clinical purpos es. Dopamine,24 Hr Ur <10 52- 480 mcg/24 L Result b elow clinical (test code = h reportable rang e for ) this analyte, w hich is 10 mcg/L.Rep orted result was calc ulated using 10 mcg/L. This test was develo ped and its analyti steven performance characteristics havebeen determ ined by [facility] .It has not been cl eared or approved by FDA. This assay has been validatedpursua nt to the [facility] regula tions and is used for clinical purpos es. Creatinine,24 Hr 0.88 0.50- 2.15 Urin (test code = g/24 h ) VALENTE (test code = Performing Lab VALENTE) EZ [employer] [facility] [address] [place] [address] Mark Encarnacion MD, PhD, AMINA Lab Interpretation Abnormal (test code = 77607-8) [facility] [id number] 12:33:00 Test Item Value Reference Range Interpretation Comments SCAN RESULT (test code = 8458284) [id number] [id number] 16:28:00 Test Item Value Reference Range Interpretation Comments Lab Interpretation (test code = Normal 57260-9) [facility]ysMetanephrines, 24 hour [id number] 12:57:00 Test Item Value Reference Interpretation Comments Range TOTAL VOLUME (test 1000 mL code = 7339364) Metanephrine (test 205 90- 315 This mushtaq t was code = 4708533) mcg/24 h developed an d its analytical perf ormance characteristics havebeen determ ined by [facility] .It has not been cleare d or approved by FDA . This assay has been validatedpursua nt to the CLIA regula tions and is used for clinical purpos es. Normetanephrine 657 122- 676 This test w as (test code = mcg/24 h developed and i ts 8810961) analytical perf ormance characteristics havebeen determ ined by [facility] .It has not been cleare d or approved by FDA . This assay has been validatedpursua nt to the [place] regula [facility] and is used for clinical [...] perf ormance characteristics havebeen determ ined by [facility] .It has not been cleare d or approved by FDA . This assay has been validatedpursua nt to the [place] regula [facility] and is used for clinical purpos es. VALENTE (test code = Performing Lab VALENTE) EZ [employer] [facility] [address] [place] [address] Mark Encarnacion MD, PhD, AMINA Lab Interpretation Abnormal (test code = 42717-4) [facility]ysCalcium, [id number] 05:42:00 Test Item Value Reference Range Interpretation Comments Calcium, Ion (test code = 1993-) 1.11 mmol/L 1.12-1.27 L pH, Blood (test code = 80038-2) 7.41 Lab Interpretation (test code = Abnormal 57203-3) [facility]ysCALCIUM, [id number] 05:42:00 Test Item Value Reference Range Interpretation Comments CALCIUM IONIZED (BEAKER) (test 1.11 mmol/L 1.12-1.27 L code = 698) PH, BLOOD (BEAKER) (test code = 7.41 1810) COMPREHENSIVE METABOLIC [id number] 04:57:00 Test Item Value Reference Range Interpretation [...] S NOT APPLICABLE FOR DIALYSIS PATIEN TS. Web Marketing Assistant ID - BSSpecimen moderately ictericHepatic function [id number] 04:53:00 Test Item Value Reference Range Interpretation Comments Protein, Total (test code 5.7 6.0- 8.3 gm/dL L = 2885-2) Albumin (test code = 3.4 g/dL 3.5-5 L 43252-2) Total Bilirubin (test 6.9 mg/dL 0.2-1.2 H code = 1974-2) Bilirubin, Direct (test 2.2 mg/dL 0.1-0.5 H code = 1967-7) Alkaline Phosphatase 58 U/L 40-150 (test code = 6768-6) AST (test code = 1920-8) 36 U/L 5-34 H ALT (test code = 1742-6) 13 U/L 6-55 VALENTE (test code = VALENTE) Web Marketing Assistant ID - BSSpecimen moderately icteric Lab Interpretation (test Abnormal code = 77303-3) [facility]osphorus2020-07-01 04:53:00 Test Item Value Reference Range Interpretation Comments Phosphorus (test code = 3.2 mg/dL 2.3-4.7 2777-1) VALENTE (test code = VALENTE) Web Marketing Assistant ID - BS Lab Interpretation (test Normal code = 43419-5) [facility]PHOSPHORUS2020-07-01 04:53:00 Test Item Value Reference Range Interpretation Comments PHOSPHORUS (BEAKER) (test code = 3.2 mg/dL 2.3-4.7 604) Web Marketing Assistant ID - [id number] 04:53:00 Test Item Value Reference Range Interpretation Comments MAGNESIUM (BEAKER) (test code = 1.7 mg/dL 1.6-2.6 627) Web Marketing Assistant ID - BSHEPATIC FUNCTION [id number] 04:53:00 Test Item Value Reference Range Interpretation [...] (test code = 13 U/L 6-55 347) Web Marketing Assistant ID - BSSpecimen moderately ictericCBC W/PLT COUNT & AUTO [id number] 04:42:00 Test Item Value Reference Range Interpretation [...] PERCENT (BEAKER) (test code = 2801) PROTHROMBIN [id number] 04:36:00 Test Item Value Reference Range Interpretation [...] (test No organisms seen code = 1123) [facility]ysBODY FLUID CULTURE + GRAM [id number] 12:05:00 Test Item Value Reference Range Interpretation Comments CULTURE (BEAKER) (test No growth code = 1095) GRAM STAIN RESULT <1+ White blood cells (BEAKER) (test code = seen 1123) GRAM STAIN RESULT No organisms seen (BEAKER) (test code = 37453) Manual [id number] 07:35:00 Test Item Value Reference Range Interpretation [...] Poikilocytes (test code = 2+ moderate 966) [place] Cells (test code = 2+ moderate 474) Artifact (test code = Present 3432) Platelet Conc (test code Decreased = 3438) VALENTE (test code = VALENTE) Web Marketing Assistant ID - [id number] ID - Maria Del Carmen AnguianoAgnieszka comments: Slide comments: Lab Interpretation (test Abnormal code = 49747-9) [facility] W/PLT COUNT & AUTO [id number] 07:35:00 Test Item Value Reference Range Interpretation [...] CONCENTRATION Decreased (CELLAVISION)(BEAKER) (test code = 3438) Web Marketing Assistant ID - [id number] ID - Maria Del Carmen Quintana comments: Slide comments:Basic Metabolic [id number] 06:24:00 Test Item Value Reference Range Interpretation Comments Sodium (test code = 140 meq/L 129-069 0861-2) Potassium (test code 3.4 meq/L 3.5-5.1 L = 2823-3) Chloride (test code = 105 meq/L 98-107 2075-0) CO2 (test code = 25 meq/L 22-29 2028-9) BUN (test code = 31 mg/dL 7-21 H 3094-0) Creatinine (test code 2.35 mg/dL 0.57-1.25 H = 2160-0) Glucose (test code = 108 mg/dL 70-105 H 2345-7) Calcium (test code = 8.7 mg/dL 8.4-10.2 12609-5) EGFR (test code = 21 mL/min/1.73 [place] [address]-0) NOT ACCURATE CREATININE CLEARANCE IN PREDICTING GLOMERULAR FILTRATION RATE . ESTIMATED GFR I S NOT APPLICABLE FOR DIALYSIS PATIENTS. VALENTE (test code = VALENTE) Web Marketing Assistant ID - PIAYA LSpecimen moderately icteric Lab Interpretation Abnormal (test code = 96361-9) [facility] NuysBASI METABOLIC [id number] 06:24:00 Test Item Value Reference Range Interpretation [...] S NOT APPLICABLE FOR DIALYSIS PATIEN TS. Web Marketing Assistant ID - MITCH Jane moderately ictericHEPATIC FUNCTION [id number] 06:23:00 Test Item Value Reference Range Interpretation [...] (test code = 13 U/L 6-55 347) Web Marketing Assistant ID - MITCH Jane moderately czkglrjNHROOYQRC2528-08-00 06:22:00 Test Item Value Reference Range Interpretation Comments MAGNESIUM (BEAKER) (test code = 1.8 mg/dL 1.6-2.6 627) Web Marketing Assistant ID - MITCH LPROTHROMBIN TIME/[id number] 04:22:00 Test Item Value Reference Range Interpretation [...] = No growth in 5 days 6463-4) [facility]ysBLOOD [id number] 23:00:00 Test Item Value Reference Range Interpretation Comments CULTURE (BEAKER) (test No growth in 5 days code = 1095) BLOOD [id number] 23:00:00 Test Item Value Reference Range Interpretation Comments CULTURE (BEAKER) (test No growth in 5 days code = 1095) DLCO (single breath diffusion)2020-01-24 10:41:00Epifanio Giles RRT, GROUNDSMAN 01/24/2020 10:52 [facility] PFT CHARTING REPORT Infection Control/Hand Hygiene procedures followed throughout the encounter with patient: YesPatient Identification Method: Patient name verified on armband, and Medical record on armband, Is the order complete?: Yes Account ID#: [id number] Name: Cici Calderon Birthdate: 1955 Age: 64 [...] and patient released from the lab without adverseoutcome.[facility]ysPulmonary Funct Lab [id number] 10:41:00Epifanio Giles RRT, GROUNDSMAN 01/24/2020 10:52 [facility] PFT CHARTING REPORT Infection Control/Hand Hygiene procedures followed throughout the encounter with patient: YesPatient Identification Method: Patient name verified on armband, and Medical record on armband, Is the order complete?: Yes Account ID#: [id number] Name: Cici Calderon Birthdate: 1955 Age: 64 [...] and patient released from the lab without adverseoutcome.[facility] NuysLu [id number] 10:41:00Epifanio Giles, PUBLIC INFORMATION RELATIONS MANAGER, GROUNDSMAN 01/24/2020 10:52 [facility] PFT CHARTING REPORT Infection Control/Hand Hyg iene procedures followed throughout the encounter with patient: YesPatient Identification Method: Patient name verified on armband, and Medical record on armband, Is the order complete?: Yes Account ID#: [id number] Name: Cici Calderon Birthdate: 1955 Age: 64 [...] and patient released from the lab without adverseoutcome.[facility]6 MINUTE WALK(FOR LUNG TRANSPLANT ONLY)2020-01-24 10:20:00Janina Meehan, PUBLIC INFORMATION RELATIONS MANAGER, GROUNDSMAN 01/24/2020 2:39 [facility] PFT CHARTING REPORT Infection Control/Hand Hygiene procedures followed throughout the encounter with patient: YesPatient Identification Method: Patient name verified on armband, and Medical record on armband, Is the order complete?: Account ID#: [id number] Name: Cici Calderon Birthdate: 1 09/08/1954 Age: [...] patient released from the lab without adverse outcome.[facility]ysU/S, [id number] 09:43:00 Referring: Dr. Rowdy Christie to be ordered:->Body Fluid Culture (w/Gram Stain, C\\T\\S)Labs marko ordered:->Cell CountReason for exam:->Acute Kidney Injury - rule out SBP - can remove volume of up to 4-5 L (given ANDERS)Should this be performed at the bedside?->YesFINAL REPORT Ultrasound guided paracentesis Clinical History: Ascites. Sedation: None. [employer] Supervisor: Christine Ward PA-C Supervising Physician: Natan Chisholm MD Bridge [employer] Manager: None. Estimated Blood Loss: < 1 [...] MDReport Verified Date/Time: 01/24/2020 09:43:05 Reading Location: [place] [id number] Ultrasound Reading Room US [id number] 09:43:00Interface, External Ris In - 01/24/2020 9:45 AM CDTFINAL REPORT Ultrasound guided paracentesis Clinical History: Ascites. Sedation: None. [employer] Supervisor: Christine Ward PA-C Supervising Physician: Natan Chisholm MD Bridge Club Manager: None. Estimated Blood Loss: < 1 [...] complication. Impression:Successful ultrasound guided paracentesis. Signed: Natan Chisholmeport Verified Date/Time: 12/27 09:43:05 Reading Location: [facility] P006J Ultrasound Reading [facility] [id number] 06:18:00 Test Item Value Reference Range Interpretation [...] S NOT APPLICABLE FOR DIALYSIS PATIEN TS. Web Marketing Assistant ID - MIKEDORIAN LSpecimen moderately [id number] 05:38:00 Test Item Value Reference Range Interpretation Comments PHOSPHORUS (BEAKER) (test code = 2.8 mg/dL 2.3-4.7 604) Web Marketing Assistant ID - MIKEDORIAN [id number] 05:38:00 Test Item Value Reference Range Interpretation Comments MAGNESIUM (BEAKER) (test code = 1.8 mg/dL 1.6-2.6 627) Web Marketing Assistant ID - MITCH LHEPATIC FUNCTION [id number] 05:38:00 Test Item Value Reference Range Interpretation [...] (test code = 11 U/L 6-55 347) Web Marketing Assistant ID - MITCH RUTHERFORDpecimen moderately ictericCALCIUM, [id number] 04:56:00 Test Item Value Reference Range Interpretation Comments CALCIUM IONIZED (BEAKER) (test 1.09 mmol/L 1.12-1.27 L code = 698) PH, BLOOD (BEAKER) (test code = 7.43 1810) PROTHROMBIN [id number] 04:48:00 Test Item Value Reference Range Interpretation [...] mechanical heart valves.CBC W/PLT COUNT & AUTO [id number] 04:36:00 Test Item Value Reference Range Interpretation [...] (BEAKER) (test code = 2801) Prepare Leuko-Red [id number] 23:54:00 Test Item Value Reference Range Interpretation Comments CROSSMATCH (test code = 2264) COMPATIBLE Unit ABO (test code = A Pos 8176232) UNIT NUMBER (test code = [id number] 934-0) Status (test code = 4488982) TX_TIMEINCHART Blood Bank Product (test code RED BLOOD CELLS = 2263) PRODUCT CODE (test code = G1217J25 933-2) [facility] NuysRubeola antibody [id number] 18:06:00 Test Item Value Reference Range Interpretation Comments Rubeola Ab, 235 AU/mL REFERENCE RANGE : Igg (test code <13.50 AU/mL = 45562-0) AU/mL Interpretation ==== <13.50 Negative 13.50-16.49 Equivocal >16.49 Positive A posi tive result indicate s that the patient hasantibody to measles virus. It does notdifferentiat e between an acti ve or past infection. The clinical diagno sis must be interpr eted inconjunction w ith clinical signs and symptoms ofthe patient. For additional information, pl ease refer tohttp://educat ion.[facility] stDiagnostics.c om/faq/ PUG927(This rosa k is being provided for informational/e ducatio nal purposes on ly.) VALENTE (test code Performing Lab = VALENTE) *QDID [employer] [facility] [address] [place] [address] Sudhakar Hargrove MD [facility] NuysMitochondria M2 Antibody (IgG)2020-01-23 13:50:00 Test Item Value Reference Range Interpretation Comments Mitochondria M2 Ab <20.0 See Note: U Reference (test code = Range:NEGATIVE: ) < OR = 20.0EQUIVOCAL: 20.1-24.9POSITI V E: > OR = 25.0 VALENTE (test code = Performing Lab VALENTE) EZ [employer] [facility] [address] [place] [address] Mark Encarnacion MD, PhD, AMINA [facility] NuysMumps antibody, [id number] 13:38:00 Test Item Value Reference Range Interpretation [...] (test Performing Lab code = VALENTE) *QDID [facility] [address] [place] [address] Sudhakar Hargrove MD [facility] NuysCBC W/PLT COUNT & AUTO [id number] 12:26:00 Test Item Value Reference Range Interpretation [...] CONCENTRATION Decreased (CELLAVISION)(BEAKER) (test code = 3438) Web Marketing Assistant ID - [id number] ID - Charo Jordan comments: Slide comments: BASIC METABOLIC [id number] 07:18:00 Test Item Value Reference Range Interpretation [...] S NOT APPLICABLE FOR DIALYSIS PATIEN TS. Web Marketing Assistant ID - MITCH LSpecimen moderately [id number] 07:17:00 Test Item Value Reference Range Interpretation Comments MAGNESIUM (BEAKER) 1.6 mg/dL 1.6-2.6 Specimen slightly (test code = 627) hemolyzed Web Marketing Assistant ID - MITCH [id number] 07:17:00 Test Item Value Reference Range Interpretation Comments PHOSPHORUS (BEAKER) 2.4 mg/dL 2.3-4.7 Specimen slightly (test code = 604) hemolyzed Web Marketing Assistant ID - MITCH LHEPATIC FUNCTION [id number] 07:17:00 Test Item Value Reference Range Interpretation [...] Specimen slightly (test code = 347) hemolyzed Web Marketing Assistant ID - MITCH LSpecimen moderately ictericB-type Natriuretic Factor (BNP) 2020-01-23 06:55:00 Test Item Value Reference Range Interpretation Comments BNP (test code = 18600-1) 2179 pg/mL 0-100 H VALENTE (test code = VALENTE) Web Marketing Assistant ID Mercedes iLnares Lab Interpretation (test Abnormal code = 84093-2) [facility] NuysB-TYPE NATRIURETIC FACTOR (BNP)2020-01-23 06:55:00 Test Item Value Reference Range Interpretation Comments B-TYPE NATRIURETIC PEPTIDE 2179 pg/mL 0-100 H (BEAKER) (test code = 700) Web Marketing Assistant ID Mercedes MEYER LCALCIUM, [id number] 06:31:00 Test Item Value Reference Range Interpretation Comments CALCIUM IONIZED (BEAKER) (test 1.07 mmol/L 1.12-1.27 L code = 698) PH, BLOOD (BEAKER) (test code = 7.45 1810) PROTHROMBIN [id number] 06:00:00 Test Item Value Reference Range Interpretation [...] for patients wiht mechanical heart valves.Prepare Leuko-Red [id number] 23:54:00 Test Item Value Reference Range Interpretation Comments Unit ABO (test code = 5076065) O Pos UNIT NUMBER (test code = [id number] 934-0) Status (test code = 4951835) TX_TIMEINCHART Blood Bank Product (test code PLATELETS = 2263) PRODUCT CODE (test code = C6784R13 933-2) [facility] NuysCBC W/PLT COUNT & AUTO [id number] 10:35:00 Test Item Value Reference Range Interpretation [...] CONCENTRATION Decreased (CELLAVISION)(BEAKER) (test code = 3438) Web Marketing Assistant ID - [id number] ID - Lizett OverholtUser comments: Slide comments: [id number] 10:05:00 Test Item Value Reference Range Interpretation Comments Cortisol, Total (test code 1.6 ug/dL 3.7-19.4 L = 2755) VALENTE (test code = VALENTE) Web Marketing Assistant ID - MITCH Linares Lab Interpretation (test Abnormal code = 63899-1) [facility] NuysCORTISOL2020-06-27 10:05:00 Test Item Value Reference Range Interpretation Comments CORTISOL, TOTAL (BEAKER) (test code 1.6 ug/dL 3.7-19.4 L = 2755) Web Marketing Assistant ID - MIKEAYA LDirect AHG (KRISTI)/Direct [id number] 07:49:00 Test Item Value Reference Range Interpretation Comments Direct AHG-IGG (test code = 1006-6) NEGATIVE Direct AHG-C3B, C3D (test code = NEGATVIE 1003-3) [facility] NuysABORH, [id number] 07:37:00 Test Item Value Reference Range Interpretation Comments ABO Grouping (test code = 2588) A Rh Factor (test code = 2589) POS [facility] JoseCALCIUM, [id number] 06:31:00 Test Item Value Reference Range Interpretation Comments CALCIUM IONIZED (BEAKER) (test 1.10 mmol/L 1.12-1.27 L code = 698) PH, BLOOD (BEAKER) (test code = 7.44 1810) BASIC METABOLIC [id number] 06:20:00 Test Item Value Reference Range Interpretation [...] S NOT APPLICABLE FOR DIALYSIS PATIEN TS. Web Marketing Assistant ID - PIAYA LSpecimen moderately [id number] 06:12:00 Test Item Value Reference Range Interpretation Comments MAGNESIUM (BEAKER) (test code = 1.7 mg/dL 1.6-2.6 627) Web Marketing Assistant ID - PIAYA LHEPATIC FUNCTION [id number] 06:12:00 Test Item Value Reference Range Interpretation [...] (test code = 10 U/L 6-55 347) Web Marketing Assistant ID - MITCH Goetzimeyahaira moderately ictericPROTHROMBIN TIME/[id number] 05:48:00 Test Item Value Reference Range Interpretation [...] is2.5-3.5 for patients wiht mechanical heart valves.Renin, [id number] 22:50:00 Test Item Value Reference Range Interpretation Comments PRA,LC/MS/MS 1.51 ng/mL/h 0.25-5.82 This test was developed (test code = and its analyti steven 8174277) performance characteristics havebeen determined by [employer] [facility].It h as not been cleared or approved by FDA. This as say has been validatedp ursuant to the CLIA reg ulations and is used for clinical purposes. VALENTE (test Performing Lab code = VALENTE) EZ [facility] [address] [place] [address] Mark Encarnacion MD, PhD, AMINA [facility] NuysBody fluid cell count with [id number] 18:33:00 Test Item Value Reference Range Interpretation Comments Appearance (test code = 9335-1) Hazy Clear A Color (test code = 6824-7) Cele Colorless, Straw A RBCs (test code = 37948-9) 4000 <=1 /cu mm H Adjusted WBC Count (test code = 86 <=5 /cu mm H 50779-7) Lining Cells (test code = 1 <=1 /cu mm 69693-9) % Segs (test code = 76813-3) 7 % % Lymphs (test code = 55317-3) 83 % % Monos (test code = 94080-3) 10 % % Eos (test code = 24938-9) 0 % % Baso (test code = 48209-0) 0 % Container Body Fluid (test code Sterile Vial = 2873) Lab Interpretation (test code = Abnormal 04027-9) [facility] NuysBODY FLUID CELL COUNT WITH [id number] 18:33:00 Test Item Value Reference Range Interpretation [...] = 2873) Peripheral Blood Smear - Hold [id number] 15:19:00 Test Item Value Reference Range Interpretation Comments Peripheral Smear Save (test code = saved 1815) [facility]ysPERIPHERAL BLOOD SMEAR - HOLD [id number] 15:19:00 Test Item Value Reference Range Interpretation Comments PERIPHERAL SMEAR SAVE (BEAKER) (test saved code = 1815) [id number] 14:41:00 Test Item Value Reference Interpretation Comments Range Aldosterone (test 22 ng/dL Adult Ref erence code = 9818753) Ranges for Aldosterone: Upright 8:00-10 :00 am < or = 28 ng/ dL Upright 4:00-6: 00 pm < or = 21 ng/ dL Supine 8:00-10 :00 am 3-16 ng/dL Th is test was developed a nd its analytical perf ormance characteristics havebeen determ ined by [facility] .It has not been cleare d or approved by FDA . This assay has been validatedpursua nt to the CLIA regula tions and is used for clinical purpos es. VALENTE (test code = Performing Lab VALENTE) EZ [employer] [facility] [facility] [address] [place] [address] Mark Encarnacion MD, PhD, AMINA [facility] Van NuysT Spot [id number] 13:05:00 Test Item Value Reference Range Interpretation Comments T-Spot TB (test code = 21216-9) Negative Neg Ctrl Spot Count (test code = 0 12169-9) Panel A Spot (test code = 92743-9) 0 Panel B Spot (test code = 51584-9) [address] (test code = 0 12056-9) Scan Result (test code = 9282496) [facility] NuysT SPOT [id number] 13:05:00 Test Item Value Reference Range Interpretation Comments T-SPOT TB (BEAKER) (test code = Negative 1683) NEG CONTROL SPOT COUNT (BEAKER) 0 (test code = 1684) PANEL A SPOT (BEAKER) (test code = 0 1685) PANEL B SPOT (BEAKER) (test code = 0 1686) POS CONTROL SPOT CT (BEAKER) (test 0 code = 1687) SCAN RESULT (test code = 1883931) BLOOD [id number] 13:00:00 Test Item Value Reference Range Interpretation Comments CULTURE (BEAKER) (test No growth in 5 days code = 1095) BLOOD [id number] 12:00:00 Test Item Value Reference Range Interpretation Comments CULTURE (BEAKER) (test No growth in 5 days code = 1095) [id number] 10:25:00 Test Item Value Reference Range Interpretation Comments CORTISOL, TOTAL (BEAKER) (test code 5.1 ug/dL 3.7-19.4 = 2755) Web Marketing Assistant ID - TUAN CCOMPREHENSIVE METABOLIC [id number] 10:23:00 Test Item Value Reference Range Interpretation [...] S NOT APPLICABLE FOR DIALYSIS PATIEN TS. Web Marketing Assistant ID - TUAN CSpecimen moderately ictericVaricella zoster antibody, IgG 2020-01-21 10:15:00 Test Item Value Reference Range Interpretation Comments Varicella IgG (test 3.6 code = 26172-3) VALENTE (test code = VALENTE) VARICELLA ZOSTER RESULT INTERPRETATIONS: <=0.8 Al Nonreactive: Presumed non-immune to VZV 0.9-1.0 Al Equivocal >=1.1 Al Reactive: Presumed immune to VZV [facility], [id number] 10:15:00 Test Item Value Reference Range Interpretation Comments Rubella IgG Quant (test 127.0 <8.0 IU/mL H code = 8014-3) VALENTE (test code = VALENTE) Rubella IgG Result Interpretation: </= 7.0 IU/mL Negative - Presumed non-immune 8.0 - 9.9 IU/mL Equivocal >= 10.0 IU/mL Positive - Presumed immune Lab Interpretation (test Abnormal code = 64626-6) [facility]ys[facility]BELL[facility] ANTIBODY, [id number] 10:15:00 Test Item Value Reference Range Interpretation Comments RUBELLA IGG QUANTITATION (BEAKER) 127.0 IU/mL <8.0 H (test code = 572) Rubella IgG Result Interpretation: </= 7.0 IU/mL Negative - Presumed non- immune 8.0 - 9.9 IU/mL Equivocal >= 10.0 IU/mL Positive - Presumed immune VARICELLA ZOSTER ANTIBODY, [id number] 10:15:00 Test Item Value Reference Range Interpretation Comments VARICELLA ZOSTER IGG (AL) (BEAKER) 3.6 (test code = 3197) VARICELLA ZOSTER RESULT INTERPRETATIONS: <=0.8 Al Nonreactive: Presumed non-immune to VZV 0.9-1.0 Al Equivocal >=1.1 Al Reactive: Presumed immune to VZVReticulocyte [id number] 10:12:00 Test Item Value Reference Range Interpretation Comments % Retic (test code = 5.3 % 0.5-1.7 H 09600-8) VALENTE (test code = VALENTE) Web Marketing Assistant ID - [id number] Lab Interpretation (test Abnormal code = 72704-6) [facility]ysRETICULOCYTE [id number] 10:12:00 Test Item Value Reference Range Interpretation Comments RETICULOCYTE COUNT PCT (BEAKER) (test 5.3 % 0.5-1.7 H code = 575) Web Marketing Assistant ID - [id number] 10:06:00 Test Item Value Reference Range Interpretation Comments PHOSPHORUS (BEAKER) (test code = 3.1 mg/dL 2.3-4.7 604) Web Marketing Assistant ID - TUAN [id number] 10:06:00 Test Item Value Reference Range Interpretation Comments MAGNESIUM (BEAKER) (test code = 1.7 mg/dL 1.6-2.6 627) Web Marketing Assistant ID - TUAN CHEPATIC FUNCTION [id number] 10:06:00 Test Item Value Reference Range Interpretation [...] (test code = 12 U/L 6-55 347) Web Marketing Assistant ID - TUAN CSpecimen moderately ictericRAD, CHEST, [...] worsening of interstitial edema Signed: Karen Walker MDReport Verified Date/Time: 01/21/2020 10:03:32 Reading Location: [facility] Radiology Reading Room XR chest 1 view portable / [id number] 10:03:00 Interface, External Ris In - 01/21/2020 [...] MDReport Verified Date/Time: 01/21/2020 10:03:32 Reading Location: [facility] Reading Room [facility] W/PLT COUNT & AUTO [id number] 09:59:00 Test Item Value Reference Range Interpretation [...] PERCENT (BEAKER) (test code = 2801) PROTHROMBIN TIME/[id number] 09:53:00 Test Item Value Reference Range Interpretation [...] including large volume ascites P Signed: John Crockereport Verified Date/Time: 01/21/2020 07:51:30 Reading Location: [facility] Diagnostic Imaging Reading Room [place] [address] MR abdomen without IV contrast 2020-01-21 07:51:00Interface, [...] including large volume ascites P Signed: John Crockerort Verified Date/Time: 01/21/2020 07:51:30 Reading Location: [facility] Diagnostic Imaging Reading Room - [place] [address] [address] [facility] Type and screen, [id number] 22:06:00 Test Item Value Reference Range Interpretation Comments ABO/RH AUTOMATED (BEAKER) (test A POSITIVE code = 2260) Ab Scrn (test code = 890-4) NEGATIVE [facility]ysRAD, CHEST, 1 VIEW, NON [id number] 21:16:00 Referring: Dr. Rowdy Zhang for exam:->JVD [...] Verified Date/Time: 01/20/2020 21:16:28 Reading Location: [address] Transitional Reading Room Cryptococcal [id number] 11:36:00 Test Item Value Reference Range Interpretation Comments Cryptococcal Antigen, Serum Negative Negative, Interference (test code = 18674-8) Lab Interpretation (test code Normal = 19459-0) [facility]ysCRYPTOCOCCAL [id number] 11:36:00 Test Item Value Reference Range Interpretation Comments CRYPTOCOCCAL ANTIGEN, SERUM Negative Negative, Interference (BEAKER) (test code = 1828) CBC W/PLT COUNT & AUTO [id number] 09:56:00 Test Item Value Reference Range Interpretation [...] CONCENTRATION Decreased (CELLAVISION)(BEAKER) (test code = 3438) Web Marketing Assistant ID - [id number] ID - Lizett OverholtUser comments: Slide comments: COMPREHENSIVE METABOLIC [id number] 05:46:00 Test Item Value Reference Range Interpretation [...] S NOT APPLICABLE FOR DIALYSIS PATIEN TS. Web Marketing Assistant ID - MITCH LSpecimen moderately [id number] 05:37:00 Test Item Value Reference Range Interpretation Comments PHOSPHORUS (BEAKER) (test code = 2.8 mg/dL 2.3-4.7 604) Web Marketing Assistant ID - MIKEDORIAN [id number] 05:37:00 Test Item Value Reference Range Interpretation Comments MAGNESIUM (BEAKER) (test code = 1.9 mg/dL 1.6-2.6 627) Web Marketing Assistant ID - MITCH LHEPATIC FUNCTION [id number] 05:37:00 Test Item Value Reference Range Interpretation [...] (test code = 9 U/L 6-55 347) Web Marketing Assistant ID - MITCH Jane moderately ictericPROTHROMBIN TIME/[id number] 04:53:00 Test Item Value Reference Range Interpretation [...] is2.5-3.5 for patients wiht mechanical heart valves.CALCIUM, [id number] 04:45:00 Test Item Value Reference Range Interpretation Comments CALCIUM IONIZED (BEAKER) (test 1.14 mmol/L 1.12-1.27 code = 698) PH, BLOOD (BEAKER) (test code = 7.36 1810) Sodium, random [id number] 00:37:00 Test Item Value Reference Range Interpretation Comments Sodium Urine (test <20 meq/L code = 2955-3) VALENTE (test code = Reference Range: No VALENTE) NormalsOperator ID - MITCH L [facility] CenterODIUM, RANDOM [id number] 00:37:00 Test Item Value Reference Range Interpretation Comments SODIUM URINE (BEAKER) (test code = < meq/L 243) Reference Range: No NormalsOperator ID - MIKEAYA LUrinalysis w/Microscopic 2020-01-20 00:30:00 Test Item Value Reference Range Interpretation Comments Color, UA (test code = Yellow 5778-6) Clarity, UA (test code = Hazy 5767-9) Specific Bath, UA (test 1.017 1.001-1.035 code = 5811-5) pH, UA (test code = 5.5 5.0-8.0 5803-2) Protein, UA (test code = 20 mg/dL Negative A 69474-9) Glucose, UA (test code = Negative Negative 365) Ketones, UA (test code = Negative Negative 2514-8) Bilirubin, UA (test code = Negative Negative 36576-0) Blood, UA (test code = Small Negative A 29936-8) Nitrite, UA (test code = Negative Negative 5802-4) Leukocytes, UA (test code Trace Negative A = 5799-2) Urobilinogen, UA (test 0.2 mg/dL 0.2-1 code = 30226-6) RBC, UA (test code = 1 /HPF 90655-2) WBC, UA (test code = 3 /HPF 5821-4) Bacteria, UA (test code = Rare 49249-1) Squam Epithel, UA (test 3 /HPF code = 08208-1) Hyaline Casts, UA (test 3 /LPF code = 19885-1) Specimen Source (test code = 2795) VALENTE (test code = VALENTE) Web Marketing Assistant ID - [auto]Web Marketing Assistant ID - tech Lab Interpretation (test Abnormal code = 51906-0) [facility]ysUrinalysis w/Microscopic + Reflex to Culture 2020-01-20 00:30:00 Test Item Value Reference Range Interpretation Comments Color, UA (test code = 5778-6) Yellow Clarity, UA (test code = 5767-9) Hazy Specific Bath, UA (test code = 1.017 1.001-1.035 5811-5) pH, UA (test code = 5803-2) 5.5 5.0-8.0 Protein, UA (test code = 34832-5) 20 mg/dL Negative A Glucose, UA (test code = 365) Negative Negative Ketones, UA (test code = 2514-8) Negative Negative Bilirubin, UA (test code = 87534-0) Negative Negative Blood, UA (test code = 29890-3) Small Negative A Nitrite, UA (test code = 5802-4) Negative Negative Leukocytes, UA (test code = 5799-2) Trace Negative A Urobilinogen, UA (test code = 0.2 mg/dL 0.2-1 14150-1) RBC, UA (test code = 54059-3) 1 /HPF WBC, UA (test code = 5821-4) 3 /HPF Bacteria, UA (test code = 33461-4) Rare Squam Epithel, UA (test code = 3 /HPF 44099-0) Hyaline Casts, UA (test code = 3 /LPF 37028-3) Specimen Source (test code = 2795) Lab Interpretation (test code = Abnormal 36839-3) [facility]/ REFLEX URINE [id number] 00:30:00 Test Item Value Reference Range Interpretation [...] SOURCE(BEAKER) (test code = 2795) URINALYSIS W/ [id number] 00:30:00 Test Item Value Reference Range Interpretation [...] /LPF 514) SOURCE(BEAKER) (test code = 2795) Web Marketing Assistant ID - [auto]Web Marketing Assistant ID - techActin (Smooth Muscle) Antibody, IgG [...] of patients withautoimmune hepatitis (AIH) type 1, [id number] % of patients with autoimmune cholangitis,lis sherine mately 30% of patients with primary biliarycirrhosi s, and approximate ly 2% of healthy people.High beatriz ues are closely correlated with AIH type 1. VALENTE (test code = Performing Lab VALENTE) EZ [facility] [address] [place] [address] Mark Encarnacion MD, PhD, AMINA Lab Interpretation Abnormal (test code = 52195-8) [facility]ysZinc2020-06-24 20:06:00 Test Item Value Reference Interpretation Comments Range Zinc (test code = 39 60- 130 mcg/dL L This te st was ) developed and i ts analytical performance characteristics have been determined by [employer] . It has not been cleared or appr jean-claude by theA. This assay has been validated pursu ant to the CLIA regulations and is used for clinic al purposes. VALENTE (test code = Performing Lab VALENTE) *[employer] [facility], [address] [place] [id number] Jorje Jauregui MD, PhD Lab Interpretation Abnormal (test code = 55562-7) [facility] [id number] 16:12:00 Test Item Value Reference Range Interpretation Comments Case Report (test code Surgical Pathology = 104) Report Case: [id number] Authorizing Provider: Sylvie George MD Collected: 01/17/2020 08:15 AM Ordering Location: [address] Received: 01/17/2020 01:50 PM Service Pathologist: Humaira Mendez MD Specimen: Duodenum, biopsy ADDENDUM (test code = y9omhIJtGHWloTEpWoPyYA 3381) SbWTTev0rkXPPzrADfUtVz MzNcZnRuYmpcdWMxXGRlZm Cly5mku838jTUsb2wnEUAv SsU3cOVbOPGueAXdJ319IK BfKHehb3blg4AeHHHcnJJo x7H4NARBlsgeqDb4vXzhY1 7lc2W3BirpA7bmSWQcEZMd E7GsOB2dLVNmSdt0ZTL6HC B5PUFyZJHrW1KtVX8wKGXm iTAgFTs9v0vykInmHXFiUU B3f0efDMssfjDkOJ2vln4i eYv7h4iwlkWxTTIpQONogX XFHMErR1WuyPagBf0mtHf3 jGsbZdfiEPU7Mmn2VO1lgr 16dmk7vKjjPDCmknhhSfL4 SMbpLUIpbiftJPk4SLicRY SppXV8EMQjlMDgM3MjWVXa DY9yyjn2UGW4ILxbFPObEa H8AGOvyXCkTXWllOojLAcp p425WKG6IlJdOZ4wR4Ece7 K0lJ6jwCLsONFboKXzOdUx WXWjva0flHPgWIrqh6YsQW M9jpA6iWUeyMTgSVXlWT23 Panle8PjIgflQAF3URDkse Xml8Zoh4tsHbRvpmBhT0zn J2VkHAUpFUIyNOAsBuNdtq Fsi1Vcd8RhkRSgwYn7i7zx DMXaYMRflGdqc1iaNPB8UF RbX8X2qEVxr7ceQMmdQNRc xWS1uaQ1XZUdwCZvU4PfhX 7gLXBpWT4gwbq5c4wpDGE9 FDkpGWPvAjB2ppM6YOOgsJ UmYROoiCkmQBapo443PSU2 DxYlSMGhq8NtI5NukYddI1 8jpRbiX41zGXGpxIavfG9a sWnutU1wQkYqBtVkLOwfQW JkXHBsYWluXGYxXGZzMjBc bGFuZzEwMzNcaGljaFxmMV rxTwClRWIdLDanV6zzJkQr OjIvLPYZANgPRNKRSG6UGE 5TTUuWCWtTU8ORMBZDCsID RVBPUlQgVEhFIEZJTkRJTk dTIElOIFRIRSBERUVQRVIg NKYWVCfRGX5GXWGJGJZFRZ 5SL8pgUH7FAMpWOcGoRQsT BVKYLzLHSBEDMWfVC0GFEg pccGFyXHFsXHBsYWluXGYw TBEvPuOibVcjpG4xLsUsJt PyTDuiDC7cHOTpL7chyKNc LRDzMSJjA7qkIoCkqB2hwF xmMVxmczIwXHBhciAgRFVP WWQHNY9aODBDCU3FR60ZAN MgQklPUFNZOlxwYXIgICAt XJNHUVRHOCJwCrKDN2SYPm UDQdRSDHCdMJFQQT1HPXKE K5IBYWKvCXOBI8gJD6XURl YqZ9DlEB1POMIKIDQGW6JE Du4OPCAJGYblOJWiDKEoYY 0GFFPQQSEYSxQONE0GMUED TElBQyBESVNFQVNFIFNFRU 5ccGFyICAgLSBOTyBHUkFO VUxPTUFTLCBEWVNQTEFTSU OyX2DeTYCFZYyULU1GPUHF RUVOXHBhcn0= DIAGNOSIS (test code = e0rxwBVrYAWge8pnRXObwB 3220) FuZzEwMzNcZnRuYmpcdWMx EJiwwmQcKUihm4BnL5ZqHw AwMFxhbnNpXGRlZmxhbmcx TSXjRAB9azZvNFYcTUpaTW BeGRdzEx1pyKCfwCjwYzPq KFUrw4rmjcPBwxzucFe6h1 awHCNmKgN7xTPiZVhpS4ix heIrcJLzQNAaVSx4hJ93DA AhmC4orQBnHTjhicWpLnW4 BPumWECyUpT3SIKbbMNxAJ IwQ4kiYURmUDeqQOCtRNuu bKYwJMM2eNfgc8T1aXLxdJ XdlCekEaHmUjTkJTHFw2Me DLz3rNsaW5HlIAXcFvZ9aR QgUGFyYWdyYXBoIEZvbnQ7 oU77WDqhngB4lSDrk0Ame8 8tv045iD5iwIPfUZN0DCCp KHJoiNReIGVwTLC1OFCeiY IiW6d0AbOyfMCzG1L5SmBf pKQmJ0B3OcSfjNSgW5W0Og VhmYYgURJybIShTt3wgSEa wTXith7fkf34QTU4r9YzaA wkMYC3MNL5EmEkEi2qpOUs OXBvER9jOgKapXZqLVMadm 46mZvcFVsbwdInnZ5lEfRr JCGvqOBwGUUrHB8pvVMsXZ PrpP7phmajBUEbPxWivhdp FTVotDbvjiYkHq2mjXrvSH Q7TInvG9stlQ7aSuE9LNgd A2nuvG6xRSl8TLqaaMQ0WL AgrE8nBK2mhzddb8jqOuWo VV9mmjead0zvCiAzQC0shi u0r9jyWgZhTA4uwykej9tf NzIwXGhlYWRlcnkwXGZvb3 LflrdpZAErd7OpO4GcrFuo O28ijSzjS99wTITvvYepsG 5tgZhehS2eNiTkNqTtLIar bFxwbGFpblxmMVxmczIwXG bbwabfMTPqTMbcZ3gyYgRb BBKmnAsfLFxmg8PhAWGiXW OxGnGxAUWRPCKDPT0jTMRT DT8EH72JYITfSemUYKVVSg zhYVKnTKIiS9CXQRDFJYKV WHcwJkSGY47CYbCFSX3FPK VJXRbJLACBR9GWKG2MK02T ALUGRFKVJQfQR0BAAPBjVe 8ENO3KXSXdPJYJVRCGUVID ILzxPOXsbJZaZMTovf14HL W9UgSwj2X0KFM9VBZfJRFg b1dkFBIoiGLdLrEvAlIdQj UtGugyqAXzCWCfFmSbf0cx k169nQZgj4okQOEnTyD4uD MvFASnqTKeW391YIAmPMuh f3dcp9IsXITqtJFid6E4SI VLxtbjiUu2kDysZ08ik8E1 YwelL1xoVKQgNTDtW6VyTW 1nZQVhNkt7OEU7OQI1ISBo NUGlU4LiIM2tWQWqzKGvXQ o5t7ixmWrrAKHdTWY6n4xg PQfagxApVK0qdh8zeYp4p9 xjczEgRGVmYXVsdCBQYXJh I6SfwVhyRv2ivUy6oVfbLs dcVTM4Joh7GV8smy57ouz2 cIxvREXjehekSxQ5ERhfJE TazdogVHt7TEycUMJyxUT8 XWJdyOUgJ9ZxMMOvDV0zyy z6ZLU1OFjuDZJcCgT4AMFv yAAbSBUgfCukHChan025VL J7OrHjQO2eI4Xem9B5nU7p aXRcZGVmdGFiNzIwXGZvcm 2fxJLzPJeac2BdJMG3elH6 jHRrpROvFAFfKyK3RDdsEP 6puv75QKSqWEV2wk1eoBUv qFpkakFvxDKvMAruX1MsBF Fbu964GSKtC9GqJCEya0O0 ttIcItYzAUYxkWC6fcY3XP ZnNQ3msidgr3bcWNfkSSup PHAsieB3mnV9HZOycOJiH4 VccJ1eVABgNU4hstlar9ms SLI1BHddYSBzBLS9AhKcAV Fud8Ynaok4VtStj3IouRGd VIbhA28ir200DJPtuyUpP4 xwbGFpblxwbGFpblxmMFxm gwM8FUMpXYmgpofjZIRvUI ntZ7pzRhAjETAemCgqXGxz v8TbDGJzEZTrJdUlgWJrOU CoRms6KWDzuGQuIKIeJvBk P0pzouwiMrWNIQWmf2ixT2 tltYZVzCMhR8VwIFfpbhNv IZhcDYvdPUR6YHE1Mo36To Q5OFQvir19 CPT Code(s) (test code a0iygKGmINXemIDnKdYeDL = 3358) OtQTLly5xhEYReyUQmMmRs MzNcZnRuYmpcdWMxXGRlZm Ijx0xts927xEMeh7dgPJKh DmE7dCGqYCAvgFWxJ622r5 opb5cmgtEryFJ4ABBhJRG6 ZCdgvlLnmiG1KBcccACgSw G1OKuznsIlSFlxzaVpxmLg Otq9GMQbD969BRJ3oKybc0 evSRF1RQZcGBVdViKrOm9o aUIrJ624ZHXhKEHXUEVhrW g8HXMmqvSedsNodSYXd287 L476t2yiVVKwxtRukCoDkp jwi9kgE927AKIjjJZdyyPx SdNtASSohPEoeSR8DRNnPO 9sxsdtXhWxUJ2tqrimHzEm WZ5cgls1CjFzOS1zecnmEm IjDRumWLWngzymIYRwd1Zc elajSV6tY2Ygw3M3gC8npN FxTTGohRFpVjDyQOJjou5f jEIaNZxal5WaWTW3xnM5qQ UqjTIgZGKiQZ26Kphqh6Fe GgarFXU6JGQpedVcp1Wla7 bqRdLetqWaL5wnC6UlJKSf EPGeTNUvAxPcydFrr4Xlk0 YmiDRdkAk3f8xuNDKlCNGz eSkxs4fkDIF3TUQoC3B1xV Ulh7wsSLgkPEPjfCU8mgmf OEmaYQYlwqM9scspGNmzEJ EpxDC1yiqcYSssCNExMlA3 oeubDEajMRSlLYZ3GJjgw0 68PXZ0RBqcEjaqTLdaOMPp bmNvbnRccGduZGVjXHBsYW luXHBsYWluXGYwXGZzMjRc uQtcsTtacJ9hCwOqNzYsSH oqBG2wHFEnN1ulwTJmOJIf VXXeG0bqYhPikI6mbEjzHP rxtxAoWRa1FpL5SFNlmx5= CLINICAL HISTORY (test k4bfvCQfFOVleWQdHxVqJY code = 3356) AyHIKmb7bcSNJxlEWxVkLb MzNcZnRuYmpcdWMxXGRlZm Afd0qor857jQSgm3ppGQOp SnV3iXLzBUOnpSQsS764HG PoBKock7wfp1NgRTTniVMb h6X6LDTKezsknQa3dVrvC5 3lh0V7PemtL4xvFEPpWUww TMOcSLcsqZNbBRJ0YIDzFP Q0ZQxccpXpohF1CWrfgAJy PrZ4HJm1u9etuPahIDSnWI Q0u8vyTIdrnhTtJH1wiq5f rNp2n4dnuhAdORJlNFRuiV TNYGNbC2PpfJvhNw3gzIx0 iXweMsbdYJL9Alr1LB7gln 53mfs2nPgeFLBygsijXiR2 ZYkjGOKxgjajGNd2PIrgQG JnbDcyMFxtYXJncjcyMFxt YXJndDcyMFxtYXJnYjcyMF qeCKQcFGH7AVywm125EOU9 FLzom0uma6fzsZYzVlg9JD XuJfKgIqzyPSpbt6Wcu1fe XEBeko3iGOV3eRQyvKzox0 V0vJPlQKSjoSYunwWwWSNn AeD1NIsdHT9gto74MKLdPT O4ux3ybBJqdHshzgPgiLIi KGlgD8JaHBRrx081DYQdP2 LsOMAdd1S6pyJgSzDeLJKi xJV9qpH1RNPpRGj0xSTgnh M9ixFgtPRtA6bccN51DsTt wSKhJ1JkwX50WoOwdPZyT9 LvwF51HsYvjIMqA4HhqC07 GeWteLVdRZXurOOcRm7ovI GuwTNko5AakDRvWMrnY07f w625OKAatwGaJ8wboUFwmr xwbGFpblxmMFxmczIwXHFs XHBsYWluXGYwXGZzMjBccG byfP0jTnXkXxYjMFHIst9i NJJ7puL2GLZskXOkLDIpPK 2vT17mpEhqKopykZB0WBJl WTWjl6wuwa9aW31ejEIcxP YrIKTnVMMydmNfoW1hvR2s PKGcJPenk5FthzbnWH5wfI lhXHBhcn0= SPECIMEN SOURCE (test p4vtzLQrVIGhcOWzFgQzSR code = 3377) TnQVHee9rvDBTofMSuBfCv MzNcZnRuYmpcdWMxXGRlZm Vgd6lnr594xPZye8raRLLr KlP3yBSmRZXrwJPnG271m8 rkp3csfoDgvRN1TDBuERY9 HAwqldVwznV4MNshsCYoOr W7DWwliaDeMHzfhgMzrlTu Zyt5LZOmM849LJT7bOthx8 muAFK9YTIrNGKbVqZlXm8t oNJnV629SWLjFBSURIXibO f2KWXsddGdvuBoeKYCn705 W455z2baFFKdsfYtiDkGgj acq4aoU508HDOoxLIcsoCl RqXgRXDtuLUnkLI0HQYnKK 9fkpryLuWeIE7lnpegHzOq YB5kaos3PlFkDZ6ulnyfBi SdDGlgDPBogfxjNQAfh7Ea flrpFV3eA4Dra1Z9xL7biX AeBUHdaFJmVqNbEXZkgp3o qUOuGLmhh9FiEGT8ysJ0yU HviBFiGAAtDO29Jvgve4Zx RwifLWB5MHTgehCbg5Xcf9 mmOgQqpwRzR1xfM2YmQRHx XLOrIXAoHpLfhkOxo9Gbt2 LcaULyyMp2n9ttRYApRCUb cIevs9huTNC4NSJyY8V9mN Kvk4zgZXbsLFDpiUH6wgiy CLyfHLMhxmV0iwvwJTkuRN ZorSE9xnkcDEstMYNbBtR3 aiwqUPxuHWMuFVQ3XOqfc2 67WYX6TMdvEgipZAmsYEUb bmNvbnRccGduZGVjXHBsYW luXHBsYWluXGYwXGZzMjRc vShwcQoopK6hIfQuLzZjAC ysPG0nWRZdZ0qqxLNlETGo TDTuL7yrPaQrfK3puVfrAK mxouHgUKOnCUD3z9EggwGq VwNamL5id0efeMJkgH== GROSS DESCRIPTION (test w0dttHPvWCUloASnPdSfJQ code = 3366) HxVUVhw1yuDEGzsEQoYaGs MzNcZnRuYmpcdWMxXGRlZm Etc6hdz076mMXte2yoXCZm OjK6rGMvTMZoxOLvS842ND RvNPxvl0kte2IfZTQptBDk z0C0QCAShelpaVf4uRzeU6 0cr5M1OntxZ9eaGCZuBMyv NMZmHFfnkLEkAZS5WBUxVR U1BBlaouGimqK6IAwvkIYm TvW9ILo6n0ubwTgyDOQxOZ V9t2hiIYoxkyQrBR0rzv2t bOy0p4hbruHmEVNoGVRmuG XVXJYfW1UmcEnnEs0fvIo9 qQvsWnhuMEB2Pch6IH1xol 84dpc5tGkkFPOzuwltJaC6 FZgcAGCgvpqfRJr9LObrAB JnbDcyMFxtYXJncjcyMFxt YXJndDcyMFxtYXJnYjcyMF arCHVdOEJ2NGmnt460BAW8 MPvhm2zam8ffiTZeMim0HJ JjKlUlGtctXMvkw4Tzu5jc KNUssn9lWQS4yENgwKnwn3 H4zTLhLDPgpYAenwDyJWMe TiY7PNinQA0inm28UEZcXI A8py1alJNjpNhycoSiqMNo OSrlM7YkZAGww551CLOzQ0 FuZUAku6S4atQeRlKfXVVp lKA0inQ6JZGdXKv2kRHrmp C2etOphNUgU4ywpT89SvIu eGLpU8FnsM35KhFugDZfC7 SufL31LzLfmPXkS7HpsA29 XeYpeOMyFBWddZGoTi1spO NgxIRcc7SanTEkNWsgT21g q980PUOzpkMeQ9ufxTTuov xwbGFpblxmMFxmczIwXHFs XHBsYWluXGYwXGZzMjBccG scpP0iLwZfMtZvCRTDInQC pHEjt3MaO2ixRO1qpROltz LrKEw5IJEidF0aXa5wrSXg iQ5dCNMlOAigPDAsGQWcCc SbzEDvSOfbWMB0wSHjCDQo LIWhBXFbIM51E4VsgiLfKS ajFJLrLXMtnQ2zRX01zSRj ciBhbmQgIlxwbGFpblxmMF puduRhTBX7x0SnlpXmFmPn weCjO84xi0ighBOrb4Lur5 4vSNHdnz2kvA1rEPpeaOBb wblcTIudgrQtPP20W84vEQ izY848KMPfGBoocFUfmslv MFxmczIwICBwaWVjZXMgb2 BirLixj3NdSP4nXJW8groy ZyAwLjMgeCAwLjIgeCAwLj ImV01yCEmfkQMgorljBNvp veNqSGUiYMPkxZOdhZ8btr EuyeTgsJHbsWF1THZnMC40 nHMzkQwfMo7kiZ56tP4aTR TqgIUaWSYjc39xcT9jKSCw REJlIEH9BCHclNjpuQ1dAq DzHsDpZUHGEQ2rYFqTI1Xl XHBhcn0= MICROSCOPIC DESCRIPTION a5cjkOHhGMJazOPfPkDqPJ (test code = 3371) QxFHGem4eyNBUozYLnWqZe MzNcZnRuYmpcdWMxXGRlZm Uzp2vnv415fHObd1beYGSf JhS4dFZjPGIvuOQdN724w2 jxb8yvclWolBX6LZHrLUU2 GGqybmOcexS5JPrwlSPbPn D5FBuujpWbUTzpzvLemlOi Kwf2AZGzG499MKO0jAwcq5 liMQO4TNBnPFWbMmZxIu2v bRLoB479GQFqQXKVOKPnpX m5NLTbrlZnppHopVEEc974 D711k9pnZBCieiVthIjGjm tnr9efM540HTGeoYJcijWt IfMdOGSzgACriRK6MRBtIA 7edguhMjIzEQ8sduqjKkQn LB3klyr2NgHwSA8ffgldYe HePTcpCUIpxdeqLNOwa8En ktsnHN7kT0Tvq9N5rC6bdM BsOWLpwDIqJqZnRNPjnv3w hOXuZQrrj5MiQJD0dmO6zX LflSPySLHlCN17Ougnc1Ym AzcbNID4KREskoBod8Gbj6 gvByOldgKwK3fiU9NbYHDh KDDsYAJyPeCtdqSyy1Bqf1 XjtCIioCi8g0esMALeBVTm mJrsa1llYXW6ZXMdR3L0jL Oui3ayIXumILGrqUZ6ykrj PIobXNXbvgF7rqsjASllVR RjhMH2eraySLamCRXsGtT8 arcmYJagGZPgBHO8UXbxr6 31GIS1VPygUpwbSInrKUVv bmNvbnRccGduZGVjXHBsYW luXHBsYWluXGYwXGZzMjRc pDgwgDlfmV0sPhCaBzCoLV hsER8yPKQcW9mggQLjRSAm SRVxL7tvUhWatU7rwUgnOQ komoKwXQEXLvCAIm8QHYwd YXJ9 [facility] [id number] 16:12:00Surgical Pathology Report Case: [id number] Authorizing Provider: Sylvie George MD Collected: 01/17/2020 08:15 AM Ordering Location: [address] Received: 01/17/2020 01:50 PM Service Pathologist: Humaira eMndez MD Specimen: Duodenum, biopsy THIS ADUODENUMIS ISSUED [...] FOVEOLAR METAPLASIA Signing Pathologist Direct Phone Line: [phone] signed by Humaira Mendez MD on 01/18/2020 at 3:50 [id number]: upper endoscopy, biopsy and colonoscopy Pre and postop diagnosis: anemiaA. Duodenum; biopsyA. The specimen is received in formalin labeled with the patient's name, accession number and "duodenum" and consists of one garduno-pink mucosal-covered pieces of tissue measuring 0.3 x 0.2 x 0.1cm. The specimen is submitted entirely following filtration in a cassette A1. HS/plPERFORMEDBlessentia health gas, [id number] 16:03:00 Test Item Value Reference Range Interpretation [...] % Lab Interpretation (test code = Abnormal 16444-2) [facility], [id number] 16:03:00 Test Item Value Reference Range Interpretation [...] (BEAKER) (test code = 1819) 28.0 % [id number] 15:05:00 Test Item Value Reference Range Interpretation Comments Ceruloplasmin (test code 21 mg/dL 18-53 = [id number]) VALENTE (test code = VALENTE) Performing Lab *[facility] [employer] [facility], [id number] [place] [id number] Jorje Jauregui MD, PhD [facility]ysCarbohydrate antigen 19-9 (CA 19-9)2020-01-19 12:51:00 Test Item Value Reference Range Interpretation Comments CA 19-9 32 U/mL <34 This test was (test code = performed using the 96492-0) Siemens Chemiluminescen t method.Values o btained from different assay methods cannot be used interchangeably .CA19-9 levels, regardl ess of value, should n ot be interpreted as absoluteevidenc e of the presence or abs ence of disease. VALENTE (test Performing Lab code = VALENTE) [facility] [employer] [facility] [address] [place] [address] I Shashank ADRIAN, PhD, AMINA [facility] NuysPROTHROMBIN TIME/[id number] 11:28:00 Test Item Value Reference Range Interpretation [...] patients wiht mechanical heart valves.MM, U/S, BREAST, [id number] 09:52:00Referring: Dr. Rowdy Zhang for exam:->liver transplant [...] Brooks MDReport Verified Date/Time: 01/19/2020 09:52:28 Reading Location:[address] Mammo Reading Room US breast [id number] 09:52:00Interface, External Ris In - 01/19/2020 9:54 [...] MDReport Verified Date/Time: 01/19/2020 09:52:28 Reading Location: [address] Mammo Reading [facility] WITHOUT [id number] 08:09:00Referring: Dr. Reno SweattAnesthesia:->NonePlease specify abdominal organs:->AdrenalFINAL REPORT TECHNIQUE: CT of the abdomen WITHOUT intravenous contrast and WITHOUT oral contrast. Dose modulation, iterative reconstruction, and/or weight-based adjustment of themA/kV was utilized to reduce the radiation dose to as low as reasonably achievable. INDICATION: Adrenal nodule. COMPARISON: 05/02/2017, MRI April 2016 week, ultrasound 01/19/2020 FINDINGS: ABSENCE OF I NTRAVENOUS [...] MDReport Verified Date/Time: 01/19/2020 08:09:04 Reading Location: [facility] Diagnostic Imaging Reading Room - [place] [address] [address] abdomen without IV contrast 2020-01-19 08:09:00Interface, [...] MDReport Verified Date/Time: 01/19/2020 08:09:04 Reading Location: [facility] Diagnostic Imaging Reading Room - [place] [address] Electronically signed by: JOHN CROCKER MD on 0 01/19/2020 08:09 [facility]CAL[facility], [id number] 07:59:00 Test Item Value Reference Range Interpretation [...] by Shaq GARCIA MICHAEL([id number]) on 01/19/2020 7:03:55 [facility]PREHENS[facility] MET[facility]OL[facility] PANEL 2020-01-19 05:21:00 Test Item Value [...] S NOT APPLICABLE FOR DIALYSIS PATIEN TS. Web Marketing Assistant ID - LASpecimen moderately [id number] 05:04:00 Test Item Value Reference Range Interpretation Comments PHOSPHORUS (BEAKER) (test code = 3.3 mg/dL 2.3-4.7 604) [employer] Marketing Assistant ID - [id number] 05:04:00 Test Item Value Reference Range Interpretation Comments MAGNESIUM (BEAKER) (test code = 2.0 mg/dL 1.6-2.6 627) Web Marketing Assistant ID - LAHEPATIC FUNCTION [id number] 05:04:00 Test Item Value Reference Range Interpretation [...] (test code = 10 U/L 6-55 347) Web Marketing Assistant ID - LASpecimen moderately ictericB-TYPE NATRIURETIC FACTOR (BNP) 2020-01-19 04:59:00 Test Item Value Reference Range Interpretation Comments B-TYPE NATRIURETIC PEPTIDE 2455 pg/mL 0-100 H (BEAKER) (test code = 700) Web Marketing Assistant ID - EDWIN BCBC W/PLT COUNT & AUTO [id number] 04:46:00 Test Item Value Reference Range Interpretation [...] (BEAKER) (test code = 2801) U/S, RENAL, [id number] 01:26:00Referring: Dr. Rowdy Zhang for exam:->Re-examine L [...] Sneed MDReport Verified Date/Time: 01/19/202001:26:59 US renal [id number] 01:26:00Interface, External Ris In - 01/19/2020 1:29 [...] of prior CT and MRI. Signed: Maira Sneedeport Verified Date/Time: 01/19/2020 01:26:59 [facility]osin[facility] [id number] 22:11:00 Test Item Value Reference Range Interpretation Comments Eosinophil Smear (test Rare EOS =less than No EOS seen A code = 36757-7) 5% WBCs seen are EOS Lab Interpretation (test Abnormal code = 74202-9) [facility]ysEOSINOPHIL SMEAR, [id number] 22:11:00 Test Item Value Reference Range Interpretation Comments EOSINOPHIL SMEAR, URINE Rare EOS =less than No EOS seen A (BEAKER) (test code = 5% WBCs seen are EOS 1851) SODIUM, RANDOM [id number] 22:04:00 Test Item Value Reference Range Interpretation Comments SODIUM URINE (BEAKER) (test code = < meq/L 243) Reference Range: No NormalsOperator ID - EDWIN BCreatinine, random urine 2020-01-18 22:02:00 Test Item Value Reference Range Interpretation Comments Creatinine, Ur 181.3 mg/dL (test code = 2161-8) VALENTE (test code = Reference Range: No VALENTE) NormalsOperator ID - EDWIN B [facility]ysProtein, random [id number] 22:02:00 Test Item Value Reference Range Interpretation Comments Protein, Urine (test code 45 mg/dL 0-14 H = 2888-6) VALENTE (test code = VALENTE) Web Marketing Assistant ID - EDWIN B Lab Interpretation (test Abnormal code = 88152-6) [facility]ysCREATININE, RANDOM [id number] 22:02:00 Test Item Value Reference Range Interpretation Comments CREATININE URINE (BEAKER) (test 181.3 mg/dL code = 375) Reference Range: No NormalsOperator ID - EDWIN BPROTEIN, RANDOM [id number] 22:02:00 Test Item Value Reference Range Interpretation Comments PROTEIN, URINE (BEAKER) (test code = 45 mg/dL 0-14 H 1569) Web Marketing Assistant ID - EDWIN BURINALYSIS W/ [id number] 22:02:00 Test Item Value Reference Range Interpretation [...] (test Urine, Sterile code = 2795) Collection Web Marketing Assistant ID - [auto]Web Marketing Assistant ID - techHepatitis B core antibody, [id number] 16:02:00 Test Item Value Reference Range Interpretation Comments Hep B Core Total Ab Nonreactive Nonreactive (test code = 56516-8) VALENTE (test code = VALENTE) Web Marketing Assistant ID - CHARO F Lab Interpretation (test Normal code = 22361-7) [facility]ysHEPATITIS B CORE ANTIBODY, [id number] 16:02:00 Test Item Value Reference Range Interpretation Comments HEPATITIS B CORE TOTAL ANTIBODY Nonreactive Nonreactive (BEAKER) (test code = 497) Web Marketing Assistant ID - CHARO FECG 12 [id number] 14:19:40Interface, External Ris In - 01/18/2020 2:19 PM CDTVentricular Rate 62 BPMAtrial Rate 62 BPMP-R Interval 138 msQRS Duration 86 msQ-T Interval 452 msQTC Calculation(Bazett) 458 msP [place] 59 degreesR [place] 32 degreesT [place] 56 degreesNormal sinus rhythmLow voltage QRSNonspecific ST JUN 2020 11:05Nonspecific T wave abnormality Nonspecific T wave abnormality, improved inQT has shortenedConfirmed by MD FARHAT, JESSIE ([id number]) on 01/18/2020 2:19:38 [facility] Cytomegalovirus antibody, [id number] 13:49:00 Test Item Value Reference Range Interpretation Comments CYTOMEGALOVIRUS, IGG Positive Negative, A (test code = 3429) Equivocal VALENTE (test code = VALENTE) CMV IgG Result Interpretation: </= 0.8 Al Negative 0.9-1.0 Al Equivocal >/=1.1 Al Positive Lab Interpretation (test Abnormal code = 11068-8) [facility]ysEBV-VCA antibody, [id number] 13:49:00 Test Item Value Reference Range Interpretation Comments GABRIEL CHING VIRAL Positive Negative, A CAPSID ANTIGEN IGG (test Equivocal code = 3415) VALENTE (test code = VALENTE) Gabriel Ching Viral Capsid Antigen IgG Result Interpretation: </= 0.8 Al Negative 0.9-1.0 Al Equivocal >/= 1.1 Al Positive Lab Interpretation (test Abnormal code = 56383-0) [facility]ysEBV-VCA antibody, [id number] 13:49:00 Test Item Value Reference Range Interpretation Comments GABRIEL CHING VIRAL Negative Negative, CAPSID ANTIGEN IGM (test Equivocal code = 3418) VALENTE (test code = VALENTE) Gabriel Ching Viral Capsid Antigen IgM Result Interpretation: </= 0.8 Al Negative 0.9-1.0 Al Equivocal >/= 1.1 Al Positive Lab Interpretation (test Normal code = 79545-9) [facility]ysCytomegalovirus antibody, [id number] 13:49:00 Test Item Value Reference Range Interpretation Comments CMV IGM (test code = Negative Negative, 3437) Equivocal VALENTE (test code = VALENTE) CMV IgM Result Interpretation: </= 0.8 Al Negative 0.9-1.0 Al Equivocal >/= 1.1 Al Positive Lab Interpretation (test Normal code = 99974-9) [facility]ysCYTOMEGALOVIRUS ANTIBODY, [id number] 13:49:00 Test Item Value Reference Range Interpretation Comments CYTOMEGALOVIRUS, IGG (BEAKER) Positive Negative, Equivocal A (test code = 3429) CMV IgG Result Interpretation: </= 0.8 Al Negative 0.9-1.0 Al Equivocal >/=1.1 Al PositiveCYTOMEGALOVIRUS ANTIBODY, [id number] 13:49:00 Test Item Value Reference Range Interpretation Comments CYTOMEGALOVIRUS IGM ANTIBODY Negative Negative, Equivocal (BEAKER) (test code = 3437) CMV IgM Result Interpretation: </= 0.8 Al Negative 0.9-1.0 Al Equivocal >/= 1.1 Al PositiveEBV ANTIBODY, [id number] 13:49:00 Test Item Value Reference Range Interpretation [...] Negative 0.9-1.0 Al Equivocal >/= 1.1 Al [id number] 13:35:00 Test Item Value Reference Range Interpretation Comments T3, Total (test code = 3053-6) 51 ng/dL 48-159 Lab Interpretation (test code = Normal 09621-5) [facility]ysT32020-06-23 13:35:00 Test Item Value Reference Range Interpretation Comments T3 TOTAL (BEAKER) (test code = 656) 51 ng/dL 48-159 PET/CT, CARDIAC PERF REST AND [id number] 12:45:00Referring: Dr. Rowdy Zhang for exam:->pre op cardiac clearance for liver transplantFINAL REPORT PROCEDURE: MYOCARDIAL PERFUSION PET IMAGING (Rest/Stress)CPT CODE: 66353 INDICATION: Evaluation for liver transplant CARDIOVASCULAR PROFILE:Symptoms: [...] prior study for comparison. Signed: Jennifer Melo [facility] [place] Verified Date/Time: 01/18/2020 12:45:40 Reading Location: [address] Reading Room [place] Myocardial Perfusion Pet/CT (Rest & Stress)2020-01-18 12:45:00Interface, External Ris In - 01/18/2020 12:47 PM CDTFINAL REPORT PROCEDURE: MYOCARDIAL PERFUSION PET IMAGING (Rest/Stress)CPT CODE: 77041 INDICATION: Evaluation for liver transplant CARDIOVASCULAR PROFILE:Symptoms: [...] MDReport Verified Date/Time: 01/18/2020 12:45:40 Reading Location: [address] Reading Room [facility] HEPATIC FUNCTION [id number] 10:29:00 Test Item Value Reference Range Interpretation [...] (test code = 9 U/L 6-55 347) Web Marketing Assistant ID - CHARO FSpecimen moderately ictericCBC W/PLT COUNT & AUTO [id number] 08:43:00 Test Item Value Reference Range Interpretation [...] CONCENTRATION Decreased (CELLAVISION)(BEAKER) (test code = 3438) Web Marketing Assistant ID - [id number] ID - Lizett OverholtUser comments: Slide comments: [id number] 07:29:00 Test Item Value Reference Range Interpretation Comments MAGNESIUM (BEAKER) (test code = 2.1 mg/dL 1.6-2.6 627) Web Marketing Assistant ID - CHARO FBASIC METABOLIC [id number] 07:29:00 Test Item Value Reference Range Interpretation [...] S NOT APPLICABLE FOR DIALYSIS PATIEN TS. Web Marketing Assistant ID - CHARO FSpecimen moderately ictericAnti-Nuclear Antibody (REILLY) 2020-01-17 10:54:00 Test Item Value Reference Range Interpretation Comments REILLY (test code = 85477-3) Negative Negative VALENTE (test code = VALENTE) Test performed by IFA method.Test performed by IFA method. Lab Interpretation (test Normal code = 90876-7) [facility]ysANTI-NUCLEAR ANTIBODY (REILLY)2020-01-17 10:54:00 Test Item Value Reference Range Interpretation Comments ANTI-NUCLEAR ANTIBODY (REILLY) (BEAKER) Negative Negative (test code = 418) Test performed by IFA method.Test performed by IFA method.[id number] 10:49:00 Test Item Value Reference Range Interpretation Comments RPR (test code = 84422-2) Nonreactive Nonreactive Lab Interpretation (test code = Normal 35607-7) [facility]ysRPR2020-06-22 10:49:00 Test Item Value Reference Range Interpretation Comments RPR SCREEN (BEAKER) (test code = Nonreactive Nonreactive 420) CBC W/PLT COUNT & AUTO [id number] 10:00:00 Test Item Value Reference Range Interpretation [...] CONCENTRATION Decreased (CELLAVISION)(BEAKER) (test code = 3438) Web Marketing Assistant ID - [id number] ID - Alem Mars comments: Slide comments:BASIC METABOLIC [id number] 05:16:00 Test Item Value Reference Range Interpretation [...] S NOT APPLICABLE FOR DIALYSIS PATIEN TS. Web Marketing Assistant ID - PIAYA LSpecimen moderately tulautsSPQEWGPVX9721-74-61 05:15:00 Test Item Value Reference Range Interpretation Comments MAGNESIUM (BEAKER) (test code = 2.1 mg/dL 1.6-2.6 627) Web Marketing Assistant ID - PIAYA LPROTHROMBIN TIME/[id number] 04:50:00 Test Item Value Reference Range Interpretation [...] patients wiht mechanical heart valves.Vitamin B12 and [id number] 16:46:00 Test Item Value Reference Range Interpretation Comments Vitamin B12 (test code = 1107 pg/mL 213-816 H 2132-9) Folate (test code = 2284-8) 3.40 ng/mL >=7.00 L VALENTE (test code = VALENTE) Web Marketing Assistant ID - NTP Lab Interpretation (test Abnormal code = 26038-4) [facility]ysVITAMIN B12 AND [id number] 16:46:00 Test Item Value Reference Range Interpretation Comments VITAMIN B12 (BEAKER) (test code = 1107 pg/mL 213-816 H 774) FOLATE (BEAKER) (test code = 362) 3.40 ng/mL >=7.00 L Web Marketing Assistant ID - NTPLactate dehydrogenase (LDH)2020-01-16 12:57:00 Test Item Value Reference Range Interpretation Comments LDH (test code = 2532-0) 250 U/L 125-220 H VALENTE (test code = VALENTE) Web Marketing Assistant ID - TUAN C Lab Interpretation (test Abnormal code = 50297-9) [facility]ysLACTATE DEHYDROGENASE (LDH)2020-01-16 12:57:00 Test Item Value Reference Range Interpretation Comments LACTATE DEHYDROGENASE (BEAKER) (test 250 U/L 125-220 H code = 635) Web Marketing Assistant ID - TUAN CRETICULOCYTE [id number] 12:44:00 Test Item Value Reference Range Interpretation Comments RETICULOCYTE COUNT PCT (BEAKER) (test 5.0 % 0.5-1.7 H code = 575) Web Marketing Assistant ID - 6000HIV-1 Antigen with HIV-1/2 Dnjbtdjt0256-13-72 12:17:00 Test Item Value Reference Range Interpretation Comments HIV-1 Antigen with HIV Nonreactive Nonreactive 1&2 Antibody (test code = 20256-8) VALENTE (test code = VALENTE) Web Marketing Assistant ID - TUAN C Lab Interpretation (test Normal code = 15562-9) [facility]ysHIV-1 ANTIGEN WITH HIV-1/2 [id number] 12:17:00 Test Item Value Reference Range Interpretation Comments HIV-1 ANTIGEN WITH HIV 1\\T\\2 Nonreactive Nonreactive ANTIBODY (2) (BEAKER) (test code = 2586) Web Marketing Assistant ID - TUAN [id number] 12:02:00 Test Item Value Reference Range Interpretation Comments Haptoglobin (test code = <8 14-258 L 4542-7) VALENTE (test code = VALENTE) Web Marketing Assistant ID - TUAN C Lab Interpretation (test Abnormal code = 30082-8) [facility]ysHAPTOGLOBIN2020-06-21 12:02:00 Test Item Value Reference Range Interpretation Comments HAPTOGLOBIN (BEAKER) (test code = < mg/dL 14-258 L 366) Web Marketing Assistant ID - TUAN CHemoglobin [id number] 09:01:00 Test Item Value Reference Range Interpretation Comments Hemoglobin A1C (test code = 4548-4) <3.8 4.3-6.1 L Lab Interpretation (test code = Abnormal 06623-4) [facility]ysHEMOGLOBIN [id number] 09:01:00 Test Item Value Reference Range Interpretation Comments HEMOGLOBIN A1C (CLAUDIAAKER) (test code = < % 4.3-6.1 L 368) U/S, ABDOMINAL, WITH [id number] 07:32:00Referring: Dr. Rowdy Mccarthy Reason for exam:->liver [...] MDReport Verified Date/Time: 01/16/2020 07:32:01 Reading Location: [address] Transitional Reading Room US abdominal with kaiarrz6357-03-00 07:32:00Interface, External Ris In - 01/16/2020 7:34 [...] MDReport Verified Date/Time: 01/16/2020 07:32:01 Reading Location: [facility] C013 Transitional Reading Room [facility] METABOLIC [id number] 04:41:00 Test Item Value Reference Range Interpretation [...] S NOT APPLICABLE FOR DIALYSIS PATIEN TS. Web Marketing Assistant ID - PIAYA LSpecimen moderately ufbshpvBSUPNNLSJ6511-04-03 04:38:00 Test Item Value Reference Range Interpretation Comments MAGNESIUM (BEAKER) (test code = 2.3 mg/dL 1.6-2.6 627) Web Marketing Assistant ID - PIDORIAN LHEPATIC FUNCTION [id number] 04:38:00 Test Item Value Reference Range Interpretation [...] (test code = 9 U/L 6-55 347) Web Marketing Assistant ID - MITCH Jane moderately ictericPROTHROMBIN TIME/[id number] 04:36:00 Test Item Value Reference Range Interpretation [...] mechanical heart valves.CBC W/PLT COUNT & AUTO [id number] 04:29:00 Test Item Value Reference Range Interpretation [...] (BEAKER) (test code = 2801) Carotid doppler szizguzyc6547-04-87 00:34:03Ejection [facility] ECHO HEARTLAB MKCKESSON CPACSRight Impression1. [...] ! ! ! !+ +----+----+-----+ + + +!Óscar forbes !67.3!18.2!60 ! ! ! !+ +----+----+-----+ +----- [...] AM CDTPV LAB - Carotid Duplex Study Salog padmaja Patient Name CICI CALDERON Date of Study 01/15/2020 ALYSE Age 64 Visit Number [id number] Gender Female Accession Number [id number] Date of 1955 Referring [facility] Room Number 1515 Physician Adult Secondary Education Instructor Herbert Lechuga Interpreting Chelsea Resendez, T Physician ProcedureType of Study: Cerebral: Carotid, [...] + + + - Additional Measurements:ICAPSV/CCAPSV 0.96.ICAEDV/CCAEDV 1.52.[facility]ysBlood typing, automated - - at seperate draw time from initial type and vhgmph1984-16-17 20:34:00 Test Item Value Reference Range Interpretation Comments ABO/RH AUTOMATED (KIRK) (test A POSITIVE code = 2260) [facility]ysT42020-06-20 18:08:00 Test Item Value Reference Range Interpretation Comments T4, Total (test code = 4.3 ug/dL 4.9-11.7 L 3026-2) VALENTE (test code = VALENTE) Web Marketing Assistant ID - NTP Lab Interpretation (test Abnormal code = 69654-9) [facility]ysT42020-06-20 18:08:00 Test Item Value Reference Range Interpretation Comments T4 TOTAL (KIRK) (test code = 895) 4.3 ug/dL 4.9-11.7 L Web Marketing Assistant ID - EMPCakojmwo9152-38-72 18:07:00 Test Item Value Reference Range Interpretation Comments Ferritin (test code = 489.86 ng/mL 5-275 H 2276-4) VALENTE (test code = VALENTE) Web Marketing Assistant ID - NTP Lab Interpretation (test Abnormal code = 01598-3) [facility] NuysFERRITIN2020-06-20 18:07:00 Test Item Value Reference Range Interpretation Comments FERRITIN (BEAKER) (test code = 489.86 ng/mL 5.00-275.00 H 361) Web Marketing Assistant ID - NTPCT, CHEST, WITHOUT [id number] 17:57:00Referring: Dr. Rowdy LopestFINAL REPORT CT of [...] [place] Verified Date/Time: 01/15/2020 17:57:54 Reading Location: [facility] C013X Ortho Consult Reading Room CT chest without IV eekgcbzq2874-33-06 17:57:00Interface, External Ris In - 01/15/2020 6:00 [...] [place] Verified Date/Time: 01/15/2020 17:57:54 Reading Location: [address] Ortho Consult Reading Room [facility] 2020-01-15 17:27:00 Test Item Value Reference Range Interpretation Comments TSH (test code = 03848-6) 5.549 0.350- 4.940 uIU/mL H VALENTE (test code = VALENTE) Web Marketing Assistant ID - DB Lab Interpretation (test Abnormal code = 16402-2) [facility]ysVitamin D, [id number]-[id number] 17:27:00 Test Item Value Reference Range Interpretation Comments Vitamin D 25-Hydroxy 6.2 ng/mL 6.6-49.9 L (test code = 2764) VALENTE (test code = VALENTE) Effective 05/07/2017: Reference Range ChangeNew: 6.6-49.9 ng/mL Previous: 13.0-47.8 ng/mL Recommended Vitamin D Target Range: 30.0-40.0 ng/mLOperator ID - DB Lab Interpretation (test Abnormal code = 03174-1) [facility]ysVITAMIN D, [id number] 17:27:00 Test Item Value Reference Range Interpretation Comments VITAMIN D 25-OH (BEAKER) (test code 6.2 ng/mL 6.6-49.9 L = 2764) Effective 05/07/2017: Reference Range ChangeNew: 6.6-49.9 ng/mL Previous: 13.0-47.8 ng/mLRecommended Vitamin D Target Range: 30.0-40.0 ng/mLOperator ID - [id number] 17:27:00 Test Item Value Reference Range Interpretation Comments THYROID STIMULATING HORMONE 5.549 uIU/mL 0.350-4.940 H (BEAKER) (test code = 772) Web Marketing Assistant ID - DBALPHA FETOPROTEIN (AFP), TUMOR [id number] 17:27:00 Test Item Value Reference Range Interpretation Comments ALPHA-FETOPROTEIN (BEAKER) (test code < ng/mL <10.0 = 1094) Web Marketing Assistant ID - DBHepatitis B surface wingpik5076-85-24 17:25:00 Test Item Value Reference Range Interpretation Comments HBsAg Screen (test code Nonreactive Nonreactive = 5195-3) VALENTE (test code = VALENTE) Specimen is considered negative for HBsAg. Lab Interpretation (test Normal code = 60043-6) [facility]ysHepatitis B surface [id number] 17:25:00 Test Item Value Reference Range Interpretation Comments Hep B S Ab (test code = 25.0 <8.0 mIU/mL H 32052-6) VALENTE (test code = VALENTE) Web Marketing Assistant ID - DB Lab Interpretation (test Abnormal code = 52929-2) [facility]ysHepatitis C [id number] 17:25:00 Test Item Value Reference Range Interpretation Comments Hepatitis C Ab (test code = Nonreactive Nonreactive 63808-8) VALENTE (test code = VALENTE) Web Marketing Assistant ID - DB Lab Interpretation (test Normal code = 67328-7) [facility]ysHEPATITIS B SURFACE [id number] 17:25:00 Test Item Value Reference Range Interpretation Comments HEPATITIS B SURFACE ANTIGEN (2) Nonreactive Nonreactive (BEAKER) (test code = 2585) Specimen is considered negative for HBsAg.HEPATITIS B SURFACE [id number] 17:25:00 Test Item Value Reference Range Interpretation Comments HEPATITIS B SURFACE ANTIBODY 25.0 mIU/mL <8.0 H (BEAKER) (test code = 647) Web Marketing Assistant ID - DBHEPATITIS C [id number] 17:25:00 Test Item Value Reference Range Interpretation Comments HEPATITIS C ANTIBODY (BEAKER) Nonreactive Nonreactive (test code = 367) Web Marketing Assistant ID - DBCarcinoembryonic Antigen (CEA)2020-01-15 17:23:00 Test Item Value Reference Range Interpretation Comments CEA, SERUM (test code = 7.9 ng/mL 0-5 H 2038-) VALENTE (test code = VALENTE) Web Marketing Assistant ID - DB Lab Interpretation (test Abnormal code = 06331-4) [facility]ysHepatitis B core antibody, [id number] 17:23:00 Test Item Value Reference Range Interpretation Comments Hep B C IgM (test code = Nonreactive Nonreactive 46054-1) VALENTE (test code = VALENTE) Web Marketing Assistant ID - DB Lab Interpretation (test Normal code = 99661-7) [facility]ysHepatitis A antibody, [id number] 17:23:00 Test Item Value Reference Range Interpretation Comments Hep A IgM (test code = Nonreactive Nonreactive 91727-0) VALENTE (test code = VALENTE) Web Marketing Assistant ID - DB Lab Interpretation (test Normal code = 66236-2) [facility] NuysCARCINOEMBRYONIC ANTIGEN (CEA)2020-01-15 17:23:00 Test Item Value Reference Range Interpretation Comments CARCINOEMBRYONIC ANTIGEN (BEAKER) 7.9 ng/mL 0.0-5.0 H (test code = 685) Web Marketing Assistant ID - DBHEPATITIS B CORE ANTIBODY, [id number] 17:23:00 Test Item Value Reference Range Interpretation Comments HEPATITIS B CORE IGM ANTIBODY Nonreactive Nonreactive (BEAKER) (test code = 645) Web Marketing Assistant ID - DBHEPATITIS A ANTIBODY, [id number] 17:23:00 Test Item Value Reference Range Interpretation Comments HEPATITIS A IGM ANTIBODY (BEAKER) Nonreactive Nonreactive (test code = 498) Web Marketing Assistant ID - DBRAD, MANDIBLE, MIN 4 [id number] 17:22:00Referring: Dr. Rowdy Zhang for exam:->liver transplant [...] Verified Date/Time: 01/15/2020 17:22:12 Reading Location: [address] Transitional Reading Room XR mandible min 4 [id number] 17:22:00Interface, External Ris In - 01/15/2020 5:24 [...] [place] Verified Date/Time: 01/15/2020 17:22:12 Reading Location: [facility] C013 [facility]itional [facility] [id number] 17:16:00Referring: Dr. Rowdy Zhang for exam:->liver transplant [...] [place] Verified Date/Time: 01/15/2020 17:16:49 Reading Location: [facility] C0[facility] Transitional Reading Room XR chest 2 [id number] 17:16:00Interface, External Ris In - 01/15/2020 5:19 [...] [place] Verified Date/Time: 01/15/2020 17:16:49 Reading Location: [facility] C0[facility] Transitional Reading Room [facility] 2D Echo W/Doppler(CW/PW/Color)2020-01-15 17:15:41Ejection [facility] ECHO HEARTLAB MKCKESSON CPACSInterface, External Ris In - 01/15/2020 5:15 PM C DTTransthoracic Echocardiography Report (TTE) Demographics Patient Name CICI CALDERON Date of Study 01/15/2020 ALYSE Gender Female Visit Number [id number] Race Unknown Room Number 1515 Number Date of 1955 Referring Physician Ren Hernandez MD Age 64 year(s) Adult Secondary Education Instructor Lisa Bautista [facility] Interpreting Jai Arreguin MD Physician Procedure [...] CO: 7.05 l/min LVOT CI: 3.67 l/min/m^2[facility] JoseCOMPREHENSIVE METABOLIC [id number] 17:06:00 Test Item Value Reference Range Interpretation [...] S NOT APPLICABLE FOR DIALYSIS PATIEN TS. Web Marketing Assistant ID - NTPSpecimen moderately lgqifavRsqfvhmcar4759-61-17 17:03:00 Test Item Value Reference Range Interpretation Comments Fibrinogen (test code = 3255-7) 114 mg/dl 225-434 L Lab Interpretation (test code = Abnormal 19767-6) [facility]ysFIBRINOGEN2020-06-20 17:03:00 Test Item Value Reference Range Interpretation Comments FIBRINOGEN LEVEL (BEAKER) (test 114 mg/dl 225-434 L code = 658) [id number] 17:00:00 Test Item Value Reference Range Interpretation Comments Transferrin (test code = 102 mg/dL 174-382 L 3034-6) VALENTE (test code = VALENTE) Web Marketing Assistant ID - DBSpecimen moderately icteric Lab Interpretation (test Abnormal code = 27482-4) [facility] NuysIron, TIBC, % sat. (without ferritin)2020-01-15 17:00:00 Test Item Value Reference Range Interpretation Comments Iron (test code = 2498-4) 144.0 ug/dL 40-160 TIBC (test code = 2500-7) 129 ug/dL 250-450 L Iron % Saturation (test code 112 % 20-55 H = 2502-3) VALENTE (test code = VALENTE) Web Marketing Assistant ID - DB Lab Interpretation (test Abnormal code = 44142-8) [facility]ysTRANSFERRIN2020-06-20 17:00:00 Test Item Value Reference Range Interpretation Comments TRANSFERRIN (BEAKER) (test code = 102 mg/dL 174-382 L 541) Web Marketing Assistant ID - DBSpecimen moderately ictericIRON, TIBC, % SAT. (WITHOUT FERRITIN) 2020-01-15 17:00:00 Test Item Value Reference Range Interpretation Comments IRON (BEAKER) (test code = 547) 144.0 ug/dL 40.0-160.0 TOTAL IRON BINDING CAPACITY 129 ug/dL 250-450 L (BEAKER) (test code = 769) IRON % SATURATION (2) (BEAKER) 112 % 20-55 H (test code = 2590) Web Marketing Assistant ID - XPIogif-9-dcodhrjlhgq5623-06-20 16:59:00 Test Item Value Reference Range Interpretation Comments A-1 Antitrypsin (test code = 121.20 mg/dL 90-200 1825-9) VALENTE (test code = VALENTE) Web Marketing Assistant ID - DB Lab Interpretation (test Normal code = 59663-0) [facility]ILIRUBIN, [id number] 16:59:00 Test Item Value Reference Range Interpretation Comments BILIRUBIN DIRECT 1.6 mg/dL 0.1-0.5 H Specimen sl ightly (BEAKER) (test code = hemoly zed 706) Web Marketing Assistant ID - OPPTNWET-1-CURSHNBSFTL1218-06-20 16:59:00 Test Item Value Reference Range Interpretation Comments ALPHA-1 ANTITRYPSIN (BEAKER) 121.20 mg/dL 90.00-200.00 (test code = 502) Web Marketing Assistant ID - [id number] 16:58:00 Test Item Value Reference Range Interpretation Comments Ethanol Lvl (test code = <10 <=10 mg/dL 5643-2) VALENTE (test code = VALENTE) Web Marketing Assistant ID - DB Lab Interpretation (test Normal code = 21611-2) [facility]TT2020-[facility] 16:58:00 Test Item Value Reference Range Interpretation Comments PTT (test code = 32530-2) 36.8 22.5- 36.0 seconds H Lab Interpretation (test code = Abnormal 62939-6) [facility] 16:58:00 Test Item Value Reference Range Interpretation Comments PARTIAL THROMBOPLASTIN TIME 36.8 seconds 22.5-36.0 H (BEAKER) (test code = 760) [id number] 16:58:00 Test Item Value Reference Range Interpretation Comments ETHANOL (BEAKER) (test code = 400) < mg/dL <=10 Web Marketing Assistant ID - DBPROTHROMBIN TIME/[id number] 16:57:00 Test Item Value Reference Range Interpretation [...] is2.5-3.5 for patients wiht mechanical heart valves.CALCIUM, [id number] 16:45:00 Test Item Value Reference Range Interpretation Comments CALCIUM IONIZED (BEAKER) (test 1.08 mmol/L 1.12-1.27 L code = 698) PH, BLOOD (BEAKER) (test code = 7.38 1810) CREATININE, RANDOM [id number] 13:46:00 Test Item Value Reference Range Interpretation Comments CREATININE URINE (BEAKER) (test 280.7 mg/dL code = 375) Reference Range: No NormalsOperator ID - NTPSODIUM, RANDOM [id number] 13:46:00 Test Item Value Reference Range Interpretation Comments SODIUM URINE (BEAKER) (test code = < meq/L 243) Reference Range: No NormalsOperator ID - NTPHepatitis panel, [id number] 13:05:00 Test Item Value Reference Range Interpretation Comments Hep A IgM (test code = Nonreactive Nonreactive 11068-5) Hep B C IgM (test code = Nonreactive Nonreactive 58424-5) Hepatitis C Ab (test code = Nonreactive Nonreactive 12155-5) HBsAg Screen (test code = Nonreactive Nonreactive 5195-3) VALENTE (test code = VALENTE) Web Marketing Assistant ID - NTP Lab Interpretation (test Normal code = 98234-0) [facility]ysHEPATITIS PANEL, [id number] 13:05:00 Test Item Value Reference Range Interpretation Comments HEPATITIS A IGM ANTIBODY (BEAKER) Nonreactive Nonreactive (test code = 498) HEPATITIS B CORE IGM ANTIBODY Nonreactive Nonreactive (BEAKER) (test code = 645) HEPATITIS C ANTIBODY (BEAKER) Nonreactive Nonreactive (test code = 367) HEPATITIS B SURFACE ANTIGEN (2) Nonreactive Nonreactive (BEAKER) (test code = 2585) Web Marketing Assistant ID - NTPLipid [id number] 11:51:00 Test Item Value Reference Range Interpretation Comments Triglycerides (test 86 mg/dL code = 2571-8) Cholesterol (test code 101 mg/dL = 2093-3) HDL (test code = 12 mg/dL 2085-9) LDL Calculated (test 72 mg/dL code = 89455-6) VALENTE (test code = VALENTE) Triglyceride Reference Range: Low Risk <150 Borderline 150-199 High Risk 200-499 Very High Risk >=500 Cholesterol Reference Range: Low Risk <200 Borderline 200-239 High Risk >240 HDL Cholesterol Reference Range: Low Risk >=60 High Risk <40 LDL Cholesterol Reference Range: Optimal <100 Near Optimal 100-129 Borderline 130-159 High 160-189 Very High >=190 Web Marketing Assistant ID - NTPSpecimen moderately icteric [facility]ysGamma Glutamyl Transferase (GGT)2020-01-15 11:51:00 Test Item Value Reference Range Interpretation Comments GGT (test code = 2324-2) 15 U/L 9-64 VALENTE (test code = VALENTE) Web Marketing Assistant ID - NTPSpecimen moderately icteric Lab Interpretation (test Normal code = 09443-1) [facility]ysUric [id number] 11:51:00 Test Item Value Reference Range Interpretation Comments Uric Acid (test code = 15.7 mg/dL 2.6-7.2 H 3084-1) VALENTE (test code = VALENTE) Web Marketing Assistant ID - NTPSpecimen moderately icteric Lab Interpretation (test Abnormal code = 69025-8) [facility]ysURIC [id number] 11:51:00 Test Item Value Reference Range Interpretation Comments URIC ACID (BEAKER) (test code = 15.7 mg/dL 2.6-7.2 H 773) Web Marketing Assistant ID - NTPSpecimen moderately ictericLIPID [id number] 11:51:00 Test Item Value Reference Range Interpretation [...] Borderline 130-159 High 160-189 Very High >=190 Web Marketing Assistant ID - NTPSpecimen moderately [id number] 11:51:00 Test Item Value Reference Range Interpretation Comments PHOSPHORUS (BEAKER) (test code = 4.5 mg/dL 2.3-4.7 604) Web Marketing Assistant ID - NTPGAMMA GLUTAMYL TRANSFERASE (GGT)2020-01-15 11:51:00 Test Item Value Reference Range Interpretation Comments GAMMA GLUTAMYL TRANSFERASE (BEAKER) 15 U/L 9-64 (test code = 364) Web Marketing Assistant ID - NTPSpecimen moderately ictericCBC W/PLT COUNT & AUTO [id number] 11:25:00 Test Item Value Reference Range Interpretation [...] CONCENTRATION Decreased (CELLAVISION)(BEAKER) (test code = 3438) Web Marketing Assistant ID - 6000Operator ID - Ana Laura James comments: Slide comments: [id number] 10:20:00 Test Item Value Reference Range Interpretation Comments MAGNESIUM (BEAKER) (test code = 2.2 mg/dL 1.6-2.6 627) Web Marketing Assistant ID - [id number] 08:57:00 Test Item Value Reference Range Interpretation Comments Ammonia (test code = 19 18- 72 mol/L 79856-9) VALENTE (test code = VALENTE) Web Marketing Assistant ID - NTP Lab Interpretation (test Normal code = 44655-1) [facility] 08:57:00 Test Item Value Reference Range Interpretation Comments AMMONIA (BEAKER) (test code = 348) 19 mol/L 18-72 Web Marketing Assistant ID - NTPHEPATIC FUNCTION [id number] 05:21:00 Test Item Value Reference Range Interpretation [...] (test code = 12 U/L 6-55 347) Web Marketing Assistant ID - DALTON MSpecimen moderately ictericBASIC METABOLIC [id number] 05:15:00 Test Item Value Reference Range Interpretation [...] 70-105 (BEAKER) (test code = 652) CALCIUM (KIRK) 8.1 mg/dL 8.4-10.2 L (test code = 697) EGFR (KIRK) (test 8 mL/min/1.73 ESTIMAT ED GFR IS code = 1092) sq m NOT ACCURATE CREATININE CLEARANCE IN PREDICTING GLOMERULAR FILTRATION RATE . ESTIMATED GFR I S NOT APPLICABLE FOR DIALYSIS PATIEN TS. Web Marketing Assistant ID - DALTON MSpecimen moderately ictericPROTHROMBIN TIME/[id number] 04:37:00 Test Item Value Reference Range Interpretation Comments PROTIME (KIRK) (test code = 19.8 seconds 11.9-14.2 H 759) INR (KIRK) (test code = 370) 1.7 <=5.9 Effective [...] Detected Not Detected, (test code = Negative 00776-8) SARS-COV-2 [facility] PERFORMING LAB (test code = 63645-7) VALENTE (test code = Negative results do [...] of the Act. Fact Sheet for Healthcare Providers:https://www.[employer]/Documents/Xper t%20Xpress%20SARS%20CoV- 2/Fact%20Sheets/3023802 %57UWHE-LQW-5%20HEALTHCA RE%20PROVIDERS%20FACT%20 SHEET.pdf Fact Sheet for Healthcare Patients:https://www.[employer]/Documents/Xpert %20Xpress%20SARS%20CoV-2 /Fact%20Sheets/3023801% 59XZAJ-HWQ-9%20PATIENT%2 0FACT%20SHEET.pdf Performing Laboratory:[facility]ARS-COV2/RT-PCR ([facility])2020-01-15 01:48:00 Test Item Value Reference Range Interpretation Comments SARS-COV2/RT-PCR (test Not Detected Not Detected, Negative code = 7566201) SARS-COV-2 PERFORMING LAB [facility] (test code = 5596751) Negative results do not preclude SARS-CoV-2 infection [...] of the Act.Fact Sheet for Healthcare Pro viders:https://www.[employer]/Documents/Xpert%20Xpress%20SARS%20CoV-2/Fact%20Sh eets/302-3802%42NJWQ-HHT-0%20HEALTHCARE%20PROVIDERS%20FACT%20SHEET.pdfFact Sheet for Healthcare Patients:https://www.[employer]/Documents/Xpert%20Xpress%20SARS%20CoV-2/Fact%20Sheets/302-3801%20SARS-COV -2%20PATIENT%20FACT%20SHEET.pdfPerforming Laboratory:[facility] [place], [place] [address]saloni Francois.[place], [place] [address]XUOMK METABOLIC [id number] 22:40:00 Test Item Value Reference Range Interpretation [...] S NOT APPLICABLE FOR DIALYSIS PATIEN TS. Web Marketing Assistant ID - DBSpecimen moderately ictericHEPATIC FUNCTION [id number] 22:39:00 Test Item Value Reference Range Interpretation [...] Specimen slightly (test code = 347) hemolyzed Web Marketing Assistant ID - DBSpecimen moderately ictericPROTHROMBIN [id number] 22:28:00 Test Item Value Reference Range Interpretation [...] mechanical heart valves.CBC W/PLT COUNT & AUTO [id number] 22:22:00 Test Item Value Reference Range Interpretation [...] code = 2801) ALPHA FETOPROTEIN (AFP), TUMOR [id number] 18:31:00 Test Item Value Reference Range Interpretation Comments ALPHA-FETOPROTEIN (BEAKER) (test code < ng/mL <10.0 = 1094) Web Marketing Assistant ID - DBBASIC METABOLIC [id number] 15:23:00 Test Item Value Reference Range Interpretation [...] S NOT APPLICABLE FOR DIALYSIS PATIEN TS. Web Marketing Assistant ID - BSPlease sent STATSpecimen moderately ictericHEPATIC FUNCTION [id number] 15:18:00 Test Item Value Reference Range Interpretation [...] (test code = 17 U/L 6-55 347) Web Marketing Assistant ID - BSPlease sent STATSpecimen moderately ictericPROTHROMBIN [...] valves.Please sent STATCBC W/PLT COUNT & AUTO [id number] 15:05:00 Test Item Value Reference Range Interpretation [...] (BEAKER) (test code = 2801) CT, ABDOMEN, [id number] 15:58:00Referring: Dr. Rowdy LopestFINAL REPORT CT OF [...] Verified Date/Time: 05/02/2017 15:58:35 Reading Location: [address] Body Reading Room CBC W/PLT COUNT & AUTO [id number] 17:30:00 Test Item Value Reference Range Interpretation [...] code = 417) 0.00ALPHA FETOPROTEIN (AFP), TUMOR [id number] 16:31:00 Test Item Value Reference Range Interpretation Comments ALPHA-FETOPROTEIN (BEAKER) (test 3.3 ng/mL <10.0 code = 1094) Effective 06/14/2014: Reference Range ChangeNew: <10.0 Previous: 0.0-8.0 BASIC METABOLIC [id number] 16:13:00 Test Item Value Reference Range Interpretation [...] FOR DIALYSIS PATIEN TS. Specimen slightly ictericLIPID [id number] 16:13:00 Test Item Value Reference Range Interpretation [...] Very High >=190 Specimen slightly ictericHEPATIC FUNCTION [id number] 16:13:00 Test Item Value Reference Range Interpretation [...] (test code = 364) Specimen slightly ictericPROTHROMBIN [id number] 16:13:00 Test Item Value Reference Range Interpretation [...]
--- OUTSIDE RECORDS SUMMARY | 2020-05-26 08:06 | XMS REPORT ---
:1955 Author Organization [facility] Address 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 ALLERGIES Allergen (clinical Drug/Non Drug Reaction Allergy Type Onset Date S tatus drug ingredient) Allergy documented on EMR Sulfa hives Drug Allergy Active Levaquin vomiting/diarrh Drug Allergy Active ea erythromycin Erythromycin(NDC vomiting/diarrh Drug Allergy Active Code:[address]-32) ea tetracycline Tetracycline hives Drug Allergy Active HCl([facility] Code:[address]-71) ENCOUNTERS from 1955 to 2020-05-03 Encounter Location Date Provider Diagnosis [facility] [address] Apr, Mitzy English Medicare annual Family Medicine [place] wellness visit, [id number] subsequent Z00. 00 IMMUNIZATIONS Vaccine Route Administration [...] No Results REASON FOR VISIT Wellness Exam/[employer] [phone], Subsequent Annual Wellness Visit (AWV) MEDICAL (GENERAL) [...] Name:Mitzy English, 2020-07-19 10 :40:00 AM, [address], [address], [place], [address], Insurance Providers Payer Name Payer Payer Insured Patient Coverage Coverage End Address Phone Name Relationship to Start Date Ramirez e Insured [employer] [phone] Irma Christian self MEDICARE PPO [id number] [id number] [address]
[2020-05-26 08:36] VITALS: O2SAT 100
[2020-05-26 08:37] VITALS: BMI 27.4
[2020-05-26] MEDS ORDERED: ALBUMIN HUMAN 25% 300 ML IV ONE (09:51)
[2020-05-26 12:09] LABS: Body Fluid WBC 55 /mm^3
--- NOTE | 2020-05-26 12:10 | RAD REPORT ---
EXAM DESCRIPTION: US - Paracentesis Proc Guidance - 05/26/2020 8:48 am CLINICAL HISTORY: Recurrent ascites COMPARISON: Multiple prior paracentesis procedures. TECHNIQUE: The patient presents for ultrasound-guided paracentesis. The procedure, risks and altern atives were discussed with the patient in detail. Oral and written consent were obtained. Time out p rocedure was performed. The patient had no contraindicated allergy or medication history. PT, INR an d platelet values within acceptable limits. Preliminary sonographic evaluation identified right mid abdomen access site. The skin and deeper tis sues were anesthetized with 1 percent lidocaine. Under direct sonographic visualization, a paracente sis catheter was advanced into the peritoneal cavity. Approximately 12 mL of ascites was removed for requested laboratory studies. Large volume drainage was initiated. Approximately 8 liters of ascites removed. At the conclusion of the procedure, catheter was withdrawn and a bandage placed at the puncture site. Postprocedure care and precaution instructions were given to the patient. Patient was transferred [facility] to same-day surgery for pending albumin infusion using referring physician protocol. IMPRESSION: Ultrasound-guided paracentesis as detailed.
[2020-05-26 12:12] LABS: Appearance CLEAR (CLEAR); Body Fluid Source OTHER; Color of fluid Yellow (COLORLESS)
[2020-05-26 13:24] VITALS: BP 94/45; TEMP 98.1
== END 2020-05-26 10:32 | disposition home or self-care (01) ==
LOC: DS 07:50
PROVIDERS: ATTEND Internal Medicine Gastroenterology
DX: R18.8 Other ascites (principal); K74.69 Other cirrhosis of liver; K70.0 Alcoholic fatty liver; R14.0 Abdominal distension (gaseous)
CPT/HCPCS: 87070; 36415; 89050; 87077; 87186; 96365; 49083; P9047

== ENCOUNTER 2020-06-07 08:15 | Day surgery (SDC) | payer OTHER ==
[2020-06-05 14:05] LABS: MPV 8.6 fL (7.6-11.3)
[2020-06-05 14:17] LABS: Platelet Estimate DECR
[2020-06-05 14:23] LABS: Protime INR 1.15
--- OUTSIDE RECORDS SUMMARY | 2020-06-07 08:47 | XMS REPORT | Clinical Summary ---
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
--- OUTSIDE RECORDS SUMMARY | 2020-06-07 08:51 | XMS REPORT | Clinical Summary ---
:1955 Author Organization [facility] Address [address] [place] [address] Care Team Providers Name Role Phone Zeinab [...] Encounters Date Type Specialty Care Team Description 06/01/2020 Telephone Transplant Hepatology Lizz Shine O jesu Vila 05/29/2020 Orders Only Transplant Hepatology Cary Talley Pre- transplant evaluation for liver transplant; FRANCISCA Dodson 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, unspecified hepatic cirrhosis type (HCC) 05/25/2020 Telephone Central Scheduling Chris Shine 05/25/2020 Telephone Transplant Hepatology Rosio Shine 05/23/2020 Telephone Transplant Hepatology Lizz Shine O jesu Vila 05/23/2020 Orders Only Transplant Hepatology David, Pre-tr ansplant evaluation for liver transplant; Tata Ledesma 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, unspecified hepatic cirrhosis type (HCC) 05/15/2020 Orders Only Transplant HepatCary Estrada Pre- transplant evaluation for liver transplant; FRANCISCA Dodson 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, unspecified hepatic cirrhosis type (HCC) 05/15/2020 Documentation Transplant Hepatology Cadence Shine 05/10/2020 Documentation Transplant Hepatology Cary Talley RN 05/09/2020 Documentation Transplant Hepatology David, Tata Ledesma 05/09/2020 Orders Only Transplant Hepatology David, Pre-tr ansplant evaluation for liver transplant; Tata Ledesma 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, unspecified hepatic cirrhosis type (HCC) 05/05/2020 Documentation Transplant Hepatology Hamilton, Jose Migueleyblake 05/03/2020 Documentation Transplant Hepatology Cary Talley RN 05/02/2020 Documentation Transplant Hepatology Hamilton, Jose Migueleyl 04/20/2020 Documentation Transplant Hepatology Hamilton, Jose Migueleyl 04/18/2020 Documentation Transplant Hepatology David, Tata Ledesma 04/18/2020 Documentation Transplant Hepatology Cary Talley RN 04/18/2020 Documentation Transplant Hepatology David, Mariaelena 04/18/2020 Documentation Transplant Hepatology David, Mariaelena 04/18/2020 Telephone Transplant Hepatology Cary Talley R RN 04/17/2020 Orders Only Transplant Hepatology Cary Talley Pre- transplant evaluation for liver transplant; R, RN 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, unspecified hepatic cirrhosis type (HCC) 04/12/2020 Orders Only Transplant Hepatology Cary Talley Awai ting organ transplant status (Primary Dx); R, RN 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, unspecified hepatic cirrhosis type (HCC); Encounter for s creening mammogram for malignant neoplasm of breast ; Hepatic cirrhos is, unspecified hepatic cirrhosis type, unspecified whether ascites present (HCC) 04/12/2020 Telephone Transplant Hepatology Cary Talley ow-up R, RN 04/12/2020 Telephone Transplant Hepatology Cary Talley ow-up R, RN 04/12/2020 Documentation Transplant Hepatology Alfonso, Jose Migueleyblake 04/11/2020 Hospital Encounter America, Kristofer Cirrhosis of [...] cirrhosis type (HCC) 03/09/2020 Orders Only Transplant HepatCary Estrada Pre- transplant evaluation for liver transplant; R, [...] failure without hepatic coma ; Kristofer Cross iency; MD Nhi Pre-transplant evaluation for liver transplant; Acute and subac jolly hepatic failure with coma (HCC) 02/15/2020 Telephone Transplant Hepatology Cary Talley meld update R, RN 02/15/2020 Telephone Transplant Hepatology Cary Talley r R, RN 02/15/2020 Orders Only Transplant [...] Orders Only Hepatology Larry, Line Hepatic Kastrup, NEMATOLOGY TEACHER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) 02/03/2020 Documentation Hepatology Kristofer Cross MD 02/02/2020 Telephone Transplant Hepatology Cary Talley R RN 02/01/2020 UNOS Charge Visit Transplant Hepatology Rito Saini irrhosis of liver Ildefonso Spencer MD without ascites , unspecified hep atic cirrhosis type (HCC) 02/01/2020 Documentation Transplant Hepatology Brigitte Hamilton 02/01/2020 Abstract Transplant Hepatology Cary Talley RN 02/01/2020 Telephone Hepatology PRIOR ITZEL Craven (XIF JASON) Kimmie 02/01/2020 Orders Only Transplant Hepatology Cary Talley Pre- transplant evaluation for liver transplant (Primary Dx); R, RN 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, unspecified hepatic cirrhosis type (HCC) 02/01/2020 Telephone Transplant Hepatology Cary Talley Labs Only R RN 01/31/2020 Documentation Intensive Care Leo Arias Conrad 01/31/2020 Documentation Transplant Hepatology Cary Talley R RN 01/31/2020 Telephone Transplant Hepatology Cary Talley otkecia r R RN 01/31/2020 Telephone Transplant Hepatology Cary Talley endo crine clearance R, RN 01/21/2020 Abstract Transplant Hepatology Poonam Martínez 01/20/2020 Documentation Transplant Hepatology Poonam Martínez West 01/20/2020 Abstract Transplant Hepatology Inge Salazar MA 01/19/2020 Surgery [place] & L SIDDHARTHA / MD Brian CORONARY ANGIOS (+/- LV) 01/18/2020 Outside Orders Radiology Mitzy English, NEMATOLOGY TEACHER 01/17/2020 Anesthesia Event Gastroenterology Agatha Lr MD Vences, Wendy Diaz, ETIENNE 01/17/2020 Surgery Gastroenterology Sylvie George, UPPER ENDOSCOPY,BIOPS [...] 01/14/2020 Travel 01/07/2020 Abstract Transplant Hepatology Cary Talley, RN 01/07/2020 Orders Only Transplant Hepatology Cary [...] Larry Obesity (BMI 35.0-39.9 without comorbidity); Kastrup, NEMATOLOGY TEACHER Adrenal mass, l eft ; Screening for m alignant neoplasm; Elevated serum creatinine; Other ascites 12/31/2019 Telephone Hepatology Dai Healy MA 12/21/2019 Documentation Hepatology Kadie Larry FNP 12/17/2019 Abstract Hepatology Ivanna Healy MA 12/16/2019 Abstract Hepatology Janna Aparicio RN 12/16/2019 Abstract Hepatology Janna Aparicio RN 12/16/2019 Abstract HepatJanna Lopez RN 12/15/2019 Audio - Hepatology aKdie Larry Portal hypert ension (Primary Dx); Telemedicine JUAN Crawford 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 [id number] AP Routine 01/19/2020 9:43 PHENOTYP PM CDT [...] 452 ms QTC Calculation(Bazett) 458 ms P [place] 59 degrees R [place] 32 degrees T [place] 56 degrees Normal sinus rhythm Normal ECG [...] procedure are i n the results section. [id number]\\, Routine 01/15/2020 4:17 Re sults for this [...] are i n the results section. SARS-COV2/RT-PCR ([facility] STAT 01/14/2020 7:28 R esults for [...] results hepatic cirrhosis section. type (HCC) after 06/07/2019 Results Prothrombin time/INR (05/17/2020 1:41 PM CDT)Only the most recent of24 results within the time period is included. Pathologist Sig nature INR 1.2 (H) [facility] Comment: Reference Range 0.9-1.1 Moderate-intensity Warfarin Therapy 2.0-3.0 Higher-intensity Warfarin Therapy 3.0-4.0 PT 12.3 (H) 9.0 - 11.5 sec [facility] Comment: For additional information, please refer to http://education.Achaogen/faq/BMZ894 (This link is being provided for informational/ educational purposes only.) Specimen Blood Narrative Performed At FASTING:NO [facility] FASTING: NO Resulting Agency Comment Performing Organization Information: Site ID: [id number] Name: [facility] Address: [address] [place] [phone] Director: Jj Carrasco Performing Organization Address City/State/Zipcode Phone Number [facility] [address] [place] [address] [facility] CBC with platelet count + automated diff (05/17/2020 1:41 PM CDT)Only the most recent of8 resultswithin the time period is included. Pathologist [facility] WBC 3.4 (L) 3.8 - 10.8 [facility] [...] Site ID: [id number] Name: [facility] Address: [address] [place] [phone] Director: Jj Carrasco Performing Organization Address [facility] Phone Number [facility] [address] [place] [address] [facility] Bilirubin, direct (05/17/2020 1:41 PM CDT)Only [...] Site ID: [facility] Name: [facility] Address: [address] [place] [phone] Director: Jj Carrasco Performing Organization Address [facility] Phone Number [facility] [employer] [address] [place] [address] [facility] Comprehensive metabolic panel (05/17/2020 1:41 PM [...] approximately 13% higher for people identified as -Indian. eGFR If NonAfricn 21 (L) > OR [...] Performing Organization Information: Site ID: [id number] Name: [facility] Address: [address] [place] [phone] Director: Jj Carrasco Performing Organization Address City/State/Zipcode Phone Number [facility] [address] [place] [address] [facility] PLATELET ESTIMATION (05/02/2020 1:25 PM CDT)Only the most recent of3 results within the time period is included. Pathologist Sig nature Platelet Estimate DECREASED (A) ADEQUATE [facility] Specimen Narrative Performed At FASTING:NO [facility] FASTING: NO Resulting Agency Comment Performing Organization Information: Site ID: [id number] Name: [facility] Address: [address] [place] [address] Director: Jj Carrasco Performing Organization Address City/State/Zipcode Phone Number [facility] [address] [place] [address] [facility] XR dxa bone density study (04/11/2020 11:51 AM CDT) Specimen Narrative Performed At FINAL REPORT [employer] Bone density study, 04/11/2020 Clinical History: Screening [...] Report Verified Date/Time: 04/11/2020 13:34:32 Reading Location: [address] Procedure Note Interface, External Ris In [...] Verified Date/Time: 04/11/2020 1 3:34:32 Reading Location: [address] Performing Organization Address City/State/Zipcode Phone Number GE [facility]IS CBC with platelet count + automated diff (04/11/2020 11:13 AM CDT)Only the most recent of16 resultswithin the time period is included. Pathologist Sig nature WBC 3.5 3.5 - 10.5 [facility] K/L [facility] RBC 2.51 (L) 3.93 - 5.22 [facility] M/L [facility] Hemoglobin 9.4 (L) 11.2 - 15.7 [facility] GM/DL [facility] Hematocrit 30.2 (L) 34.1 - 44.9 % [facility] MCV 120.3 (H) 79.4 - 94.8 fL [facility] MCH 37.5 (H) 25.6 - 32.2 pg [facility] MCHC 31.1 (L) 32.2 - 35.5 [facility] GM/DL [facility] RDW 14.6 (H) 11.7 - 14.4 % [facility] Platelets 57 (L) 150 - 450 K/CU [facility] MPV 10.4 9.4 - 12.3 fL [facility] nRBC 0 0 - 0 /100 WBC [facility] % Neutros 60 % [facility] % Lymphs 19 % [facility] % Monos 12 % [facility] % Eos 8 % [facility] % Baso 1 % [facility] # Neutros 2.09 1.56 - 6.13 [facility] # Lymphs 0.67 (L) 1.18 - 3.74 [facility] # Monos 0.43 (H) 0.24 - 0.36 [facility] # Eos 0.28 0.04 - 0.36 [facility] # Baso 0.02 0.01 - 0.08 [facility] Immature 0 0 - 1 % [facility] e CENTER Specimen Blood Performing Organization Address City/State/Zipcode Phone Number [address] [address] CENTER Alpha fetoprotein (AFP), tumor marker (04/11/2020 11:13 AM CDT)Only the most recent of3 resultswithin the time period is included. Pathologist Sig nature Alpha-Fetoprotein <2.0 <10.0 ng/mL [facility] Specimen Blood Narrative Performed At Waist Cutter ID - BS [facility] Performing Organization Address City/State/Zipcode Phone Number [address] [address] CENTER Miscellaneous lab test (02/15/2020 12:29 PM CDT)Only the most recent of2 results within the time period is included. Pathologist Sig nature Scan Result [facility] Specimen Blood Narrative Performed At This result has an attachment that is no t available. Performing Organization Address City/State/Zipcode Phone Number [facility] [address] [facility] [place], [place] Magnesium (02/15/2020 12:29 PM CDT)Only the most recent of13 resultswithin the time period is included. Pathologist Sig nature Magnesium 1.8 1.6 - 2.6 mg/dL [facility] Specimen Blood Narrative Performed At Waist Cutter ID - LM [facility] Performing Organization Address City/State/Zipcode Phone Number [facility] [address] [place] [address] CENTER RHYTHM STRIP - SCAN (01/27/2020 10:00 [...] analytical performance characteristics have been determined by [facility]. It has not been cleared or approved by FDA. This assay has been validated pursuant to the CLIA regulations and is used for clini steven purposes. Normetanephrine 213 (H) < OR = 148 [facility] Comment: pg/mL INCORPORATED This test was developed and its analytical performance characteristics have been determined by [facility]. It has not been cleared [...] Plasma Fractionated Metanephrines for Pheochromocytoma. The J [facility] cent[facility]al of Clinical Endocrinology and Metabolism 93 (1),91-95, 2008. For additional information, please refer to http://education.Achaogen/faq/MetFractFree (This link is being provided for informational/educati onal purposes only.) This test was developed and its analytical performance characteristics have been determined by [facility]. It has not been cleared or approved by FDA. This assay has been validated pursuant to the CLIA regulations and is used for clini steven purposes. Specimen Blood Narrative Performed At Performing Lab [facility] [address] [place] [address] Mark nEcarnacion MD, PhD, AMINA Performing Organization Address City/[facility]/Zipcode Phone Number [place] [address] [address] [facility] Calcium, Ionized (01/26/2020 3:50 AM CDT)Only the most recent of7 resultswithin the time period is included. Pathologist Sig [employer] Calcium, Ion 1.11 (L) 1.12 - 1.27 mmol/L [facility] pH, Blood 7.41 [facility] Specimen Blood Performing Organization Address City/[facility]/Zipcode Phone Number [facility] [address] [place] [address] CENTER Phosphorus (01/26/2020 3:50 AM CDT)Only the most recent of7 resultswithin the time period is included. Pathologist Sig nature Phosphorus 3.2 2.3 - 4.7 mg/dL [facility] Specimen Blood Narrative Performed At Waist Cutter ID - BS [facility] Performing Organization Address City/[facility] Phone Number [facility] [address] [place] [address] CENTER Hepatic function panel (01/26/2020 3:50 AM CDT)Only the most recent of13 resultswithin the time period is included. Pathologist Sig nature Protein, Total 5.7 (L) 6.0 - 8.3 gm/dL [facility] Albumin 3.4 (L) 3.5 - 5.0 g/dL [facility] Total Bilirubin 6.9 (H) 0.2 - 1.2 mg/dL [facility] Bilirubin, Direct 2.2 (H) 0.1 - 0.5 mg/dL [facility] Alkaline Phosphatase 58 40 - 150 U/L [facility] AST 36 (H) 5 - 34 U/L [facility] ALT 13 6 - 55 U/L [facility] Specimen Blood Narrative Performed At Waist Cutter ID - BS [facility] Specimen moderately icteric Performing Organization Address City/[facility] Phone Number [address] [address] CENTER Manual Differential (01/25/2020 3:47 AM CDT)Only the most recent of7 results within the time period is included. Pathologist Sig nature % Neutros 66 % [facility] % Lymphs 24 % [facility] % Monos 7 % [facility] % Eos 2 % [facility] % Metamyelo 1 (H) 0 - 0 % [facility] # Neutros 0.92 (L) 1.56 - 6.13 K/ul [facility] # Lymphs 0.34 (L) 1.18 - 3.74 K/ul [facility] # Monos 0.10 (L) 0.24 - 0.36 K/uL [facility] # Eos 0.03 (L) 0.04 - 0.36 K/uL [facility] # Metamyelo 0.01 (H) 0.00 - 0.00 K/uL [facility] Total Counted 100 [facility] Smudge Cells Present [facility] Giant Platelet Present [facility] Anisocytosis 2+ moderate [facility] Macrocytes 2+ moderate [facility] Poikilocytes 2+ moderate [facility] Joffre Cells 2+ moderate [facility] Artifact Present [facility] Platelet Conc Decreased [facility] Specimen Blood Narrative Performed At Waist Cutter ID - [id number] [facility] Waist Cutter ID - Maria Del Carmen Silvio User comments: Slide comments: Performing Organization Address City/State/Zipcode Phone Number [facility] [address] [place] [address] CENTER Basic Metabolic Panel (01/25/2020 3:47 AM CDT)Only the most recent of10 results within the time period is included. Sodium 140 136 - 145 meq/L [facility] Potassium 3.4 (L) 3.5 - 5.1 meq/L [facility] Chloride 105 98 - 107 meq/L [facility] CO2 25 22 - 29 meq/L [facility] BUN 31 (H) 7 - 21 mg/dL [facility] Creatinine 2.35 (H) 0.57 - 1.25 [facility] mg/dL [facility] Glucose 108 (H) 70 - 105 mg/dL [facility] Calcium 8.7 8.4 - 10.2 [facility] mg/dL [facility] EGFR 21Comment: ESTIMATED mL/min/1.73 sq [facility] GFR IS NOT m [facility] ACCURATE [place] CREATININE CLEARANCE IN PREDICTING GLOMERULAR FILTRATION RATE. ESTIMATED GFR IS NOT APPLICABLE FOR DIALYSIS PATIENTS. Specimen Blood Narrative Performed At Waist Cutter ID - PIAYA L [facility] Specimen moderately icteric Performing Organization Address City/State/Zipcode Phone Number [facility] [address] [place] [address] CENTER TRANSFUSION SERVICE REPORT - [...] AM CDT) Narrative Performed At Epifanio Giles, PHYSICAL THERAPY AIDE, COCKTAIL SERVER 01/24/20 20 10:52 AM [facility] PFT CHARTING REPORT Infection Control/Hand Hygiene procedure s followed throughout the encounter with patient: Yes Patient Identification Method: Patient n celia verified on armband, and Medical record on armband, Is the order complete?: Yes Account ID#: [id number] Patient Name: Cici Calderon Birthdate: 1955 Age: [...] CDT) Narrative Performed At Epifanio Giles RRT, COCKTAIL SERVER 01/24/20 10:52 AM [facility] PFT CHARTING REPORT Infection Control/Hand Hygiene procedure s followed throughout the encounter with patient: Yes Patient Identification Method: Patient n celia verified on armband, and Medical record on armband, Is the order complete?: Yes Account ID#: [id number] Patient Name: Cici Calderon Birthdate: 1955 Age: [...] CDT) Narrative Performed At Epifanio Giles RRT, [facility] 01/24/20 10:52 AM [facility] PFT CHARTING REPORT Infection Control/Hand Hygiene procedure s followed throughout the encounter with patient: Yes Patient Identification Method: Patient n celia verified on armband, and Medical record on armband, Is the order complete?: Yes Account ID#: [id number] Patient Name: Cici Calderon Birthdate: 1955 Age: [...] DISCHARGE The study was completed in accordance [facility] the physician's order and patient released from the lab withou t adverse outcome. 6 MINUTE WALK(FOR LUNG TRANSPLANT ONLY) (01/24/2020 10:20 AM CDT) Narrative Performed At Janina Meehan RRT, [facility] 01/24/20 2:39 PM [facility] PFT CHARTING REPORT Infection Control/Hand Hygiene procedure s followed throughout the encounter with patient: Yes Patient Identification Method: Patient n celia verified on armband, and Medical record on armband, Is the order complete?: Account ID#: [id number] Patient Name: Cici Calderon Birthdate: 1955 Age: [...] ABO A Pos SAFETRACE TX UNIT NUMBER [id number] SAFETRACE [place] Status TX_TIMEINCHART SAFETRACE [place] Blood Bank Product RED BLOOD CELLS SAFETRACE [place] PRODUCT CODE [id number] SAFET[place] Specimen Other Performing Organization Address [facility] Phone Number SAFETRACE [place] B-type Natriuretic Factor (BNP) (01/23/2020 4:32 AM CDT)Only the most recent of 2 resultswithin the time period is included. Pathologist Sig nature BNP 2,179 (H) 0 - 100 pg/mL [facility] Specimen Blood Narrative Performed At Waist Cutter ID - MITCH L [facility] Performing Organization Address [facility] [place] [place] Phone Number [address] [address] CENTER Prepare Leuko-Red PLT (01/22/2020 11:54 PM CDT)Only the most recent of2 results within the time period is included. Pathologist Sig nature Unit ABO A Pos SAFETRACE TX UNIT NUMBER [id number] SAFETRACE TX Status WORK IN PROGRESS SAFETRACE TX Blood Bank Product PLATELETS SAFETRACE TX PRODUCT CODE [id number] SAFETRACE TX Unit ABO O Pos SAFETRACE TX UNIT NUMBER [id number] SAFETRACE TX Status TX_TIMEINCHART SAFETRACE TX Blood Bank Product PLATELETS SAFETRACE [place] PRODUCT CODE [id number] SAFETRACE TX Specimen Blood Performing Organization Address [facility] [place] [place] Phone Number SAFETRACE [place] Transfuse Leuko-Red RBC (01/22/2020 2:30 PM CDT)Only the most recent of2 resultswithin the time period is included.Cortisol (01/22/2020 8:23 AM CDT)Only the most recent of2 resultswithin the time period is included. Pathologist Sig nature Cortisol, Total 1.6 (L) 3.7 - 19.4 ug/dL [facility] Specimen Blood Narrative Performed At Waist Cutter ID - MITCH L [facility] Performing Organization Address [facility] [place], [place] Phone Number [address] [address] CENTER ABORH, manual (01/22/2020 4:34 AM CDT) Pathologist Sig nature ABO Grouping A [facility] DICAL [place] Rh Factor POS [facility] Spec[facility] Blood Performing Organization Address [facility] [facility] Phone Number [address] [address] Direct AHG (RAMIREZ)/Direct Jewel (01/22/2020 4:34 AM CDT) Pathologist Sig nature Direct AHG-IGG NEGATIVE [facility] Direct AHG-C3B, C3D NEGATVIE [facility] Specimen Blood Performing Organization Address [facility]/Zipcode Phone Number [address] [address] Body fluid culture + gram stain (01/21/2020 4:54 PM CDT) Result No growth [facility] Gram Stain Result <1+ White blood [facility] cells seen [facility] Gram Stain Result No organisms seen [facility] Specimen Body Fluid - Ascites (disorder) Performing Organization Address [facility] Phone Number [address] [address] CENTER Body fluid cell count with differential (01/21/2020 4:54 PM CDT) Appearance Hazy (A) Clear [facility] Color Cele (A) Colorless, [facility] RBCs 4,000 (H) <=1 /cu mm [facility] Adjusted WBC Count 86 (H) <=5 /cu mm [facility] Lining Cells 1 <=1 /cu mm [facility] % Segs 7 % [facility] % Lymphs 83 % [facility] % Monos 10 % [facility] % Eos 0 % [facility] % Baso 0 % [facility] Container Body Fluid Sterile Vial [facility] Specimen Body Fluid - Ascites (disorder) Performing Organization Address City/State/Zipcode Phone Number [facility] [address] [place] [address] CENTER US paracentesis (01/21/2020 4:40 PM CDT) Specimen Narrative Performed At FINAL REPORT [facility] Ultrasound guided paracentesis Clinical History: Ascites. Sedation: None. [employer] Sales Manager: Christine Ward PA-C Supervising Physician: Natan Chisholm MD Winding Rack Operator: None. Estimated Blood Loss: < 1 [...] anesthesia was achieved with lidocaine, a 5 [place] Island[place] one-step catheter was advanced into the peritoneal cavity under ultrasound guidance. After completion of drainage, the cathet er was removed. There was no evidence of complication. Impression: Successful ultrasound guided paracentesi s. Signed: Natan Chisholm MD Report Verified Date/Time: 01/24/2020 09:43:05 Reading Location: [facility] [id number] [facility] Reading Room Procedure Note Interface, External Ris In - 01/24/2020 9:45 AM CDT FINAL REPORT Ultrasound guided paracentesis Clinical History: Ascites. Sedation: None. [employer] Sales Manager: Christine Ward PA-C Supervising Physician: Natan Chisholm MD Winding Rack Operator: None. Estimated Blood Loss: < 1 [...] anesthesia was achieved with lidocaine, a 5 [place] one-step catheter was advanced into the peritoneal cavity under ultrasound guidance. After completion of drainage, the cathet er was removed. There was no evidence of complication. Impression: Successful ultrasound guided paracentesi s. Signed: Natan Chisholm MD Report Verified Date/Time: 01/24/2020 0 9:43:05 Reading Location: [facility] [id number] [facility] Performing Organization Address City/[facility]/Zipcode Phone Number RIS Peripheral Blood Smear - Hold only (01/21/2020 9:31 AM CDT) Pathologist Sig dima Peripheral Smear Save saved [facility] Specimen Blood Performing Organization Address [facility] Phone Number [address] [address] CENTER Reticulocyte count (01/21/2020 9:31 AM CDT)Only the most recent of2 results within the time period is included. Pathologist Sig nature % Retic 5.3 (H) 0.5 - 1.7 % [facility] Specimen Blood Narrative Performed At Waist Cutter ID - [id number] [facility] Performing Organization Address [facility]/Zipcode Phone Number [address] [address] CENTER XR chest 1 view portable / bedside (01/21/2020 9:10 AM CDT)Only the most recent of2 resultswithin the time period is included. Specimen Narrative Performed At FINAL REPORT [facility] INDICATION: Edema COMPARISON: January 20, 2020 TECHNIQUE: [...] Report Verified Date/Time: 01/21/2020 10:03:32 Reading Location: [facility] Reading Room Procedure Note Interface, External [...] Verified Date/Time: 01/21/2020 1 0:03:32 Reading Location: [employer] [facility] Reading Room Performing Organization Address City/State/Zipcode Phone Number [facility] Metanephrines, 24 hour urine (01/20/2020 10:51 PM CDT) TOTAL VOLUME 1000 mL [facility] Metanephrine 205 90 - 315 [facility] Comment: mcg/24 h INCORPORATED This test was developed and its analytical performance characteristics have been determined by [employer] [facility]. It has not been cleared or approved by FDA. This assay has been validated pursuant to the CLIA regulations and is used for clini steven purposes. Normetanephrine 795 245 - 564 [facility] Comment: mcg/24 h INCORPORATED This test was developed and its analytical performance characteristics have been determined by [employer] [facility]. It has not been cleared [...] analytical performance characteristics have been determined by [employer] [facility]. It has not been cleared or approved by FDA. This assay has been validated pursuant to the CLIA regulations and is used for clini steven purposes. Specimen Urine Narrative Performed At Performing Lab [facility] [place] [address] [place] [address] Mark Encarnacion MD, PhD, AMINA Performing Organization Address City/State/Zipcode Phone Number [email or web address] [address] [facility] Catecholamines, Fractionated, 24hr urine (01/20/2020 10:51 PM CDT) TOTAL VOLUME 1000 mL [facility] Epinephrine,24 Hr Ur <2 (L) 2 - 24 [facility] Comment: mcg/24 h INCORPORATED Result below clinical reportable range for this analyt e, which is 2 mcg/L. Reported result was calculated using 2 mcg/L. This test was developed and its analytical performance characteristics have been determined by [employer] [facility]. It has not been cleared or approved by FDA. This assay has been validated pursuant to the CLIA regulations and is used for clini steven purposes. Norepinephrine 9 (L) 15 - 100 [facility] Comment: mcg/24 h INCORPORATED This test was developed and its analytical performance characteristics have been determined by [employer] [facility]. It has not been cleared or approved by FDA. This assay has been validated pursuant to the CLIA regulations and is used for clini steven purposes. Calculated Total 9 (L) 26 - 121 [facility]Ne Comment: mcg/24 h INCORPORATED This test was developed and its analytical performance characteristics have been determined by [employer] [facility]. It has not been cleared [...] analytical performance characteristics have been determined by [employer] [facility]. It has not been cleared or approved by FDA. This assay has been validated pursuant to the CLIA regulations and is used for clini steven purposes. Creatinine,24 Hr 0.88 0.50 - 2.15 [facility] Urin g/24 h INCORPORATED Specimen Urine Narrative Performed At Performing Lab [facility] [employer] [facility] [place] [address] [place] [address] Mark Encarnacion MD, PhD, AMINA Performing Organization Address [facility]/Zipcode Phone Number [email or web address] [address] [address] Type and screen, automated (01/20/2020 8:39 PM CDT)Only the most recent of2 resultswithin the time period is included. Pathologist Sig nature ABO/RH AUTOMATED A POSITIVE [facility] (BEAKER) [facility] Ab Scrn NEGATIVE [facility] Specimen Blood Performing Organization Address City/[facility]/Zipcode Phone Number [facility] [address] [place] [address] MR abdomen without IV contrast (01/20/2020 5:54 PM CDT) Specimen Narrative Performed At FINAL REPORT [employer] TECHNIQUE: MRI of the abdomen WITHOUT in [...] Report Verified Date/Time: 01/21/2020 07:51:30 Reading Location: [facility] Reading Room - [place] [address] Procedure Note Interface, External Ris In - [...] Verified Date/Time: 01/21/2020 0 7:51:30 Reading Location: [facility] Reading Room - [place] [address] Performing Organization Address City/State/Zipcode Phone Number GE RIS Urinalysis w/Microscopic + Reflex to Culture (01/19/2020 11:19 PM CDT) Color, UA Yellow [facility] Clarity, UA Hazy [facility] Specific [place], 1.017 1.001 - 1.035 [facility] pH, UA 5.5 5.0 - 8.0 [facility] Protein, UA 20 mg/dL (A) Negative [facility] Glucose, UA Negative Negative [facility] Ketones, UA Negative Negative [facility] Bilirubin, UA Negative Negative [facility] Blood, UA Small (A) Negative [facility] Nitrite, UA Negative Negative [facility] Leukocytes, UA Trace (A) Negative [facility] Urobilinogen, UA 0.2 0.2 - 1.0 mg/dL [facility] RBC, UA 1 /HPF [facility] WBC, UA 3 /HPF [facility] Bacteria, UA Rare [facility] Squam Epithel, UA 3 /HPF [facility] Hyaline Casts, UA 3 /LPF [facility] Specimen Source [facility] Specimen Urine Performing Organization Address City/[facility]/Zipcode Phone Number [facility] [address] [place] [address] CENTER Sodium, random urine (01/19/2020 11:19 PM CDT)Only the most recent of3 results within the time period is included. Pathologist Sig nature Sodium Urine <20 meq/L [facility] [place] Specimen Urine Narrative Performed At Reference Range: No Normals [facility] Waist Cutter ID - [id number] L Performing Organization Address City/[facility]/Zipcode Phone Number [facility] [address] [place] [address] CENTER Urinalysis w/Microscopic (01/19/2020 11:19 PM CDT)Only the most recent of2 resultswithin the time period is included. Color, UA Yellow [facility] Clarity, UA Hazy [facility] Specific [place], 1.017 1.001 - 1.035 [facility] pH, UA 5.5 5.0 - 8.0 [facility] Protein, UA 20 mg/dL (A) Negative [facility] Glucose, UA Negative Negative [facility] Ketones, UA Negative Negative [facility] Bilirubin, UA Negative Negative [facility] Blood, UA Small (A) Negative [facility] Nitrite, UA Negative Negative [facility] Leukocytes, UA Trace (A) Negative [facility] Urobilinogen, UA 0.2 0.2 - 1.0 mg/dL [facility] RBC, UA 1 /HPF [facility] WBC, UA 3 /HPF [facility] Bacteria, UA Rare [facility] Squam Epithel, UA 3 /HPF [facility] Hyaline Casts, UA 3 /LPF [facility] Specimen Source [facility] Specimen Urine Narrative Performed At Waist Cutter ID - [auto] [facility] Waist Cutter ID - tech Performing Organization Address [facility] Phone Number [address] [address] [place] Blood Culture - Routine (Right Venipuncture) (01/19/2020 9:45 PM CDT)Only the most recent of4 resultswithin the time period is included. Pathologist Sig nature Result No growth in 5 days [facility] Specimen Blood - Entire right upper arm (body str ucture) Performing Organization Address [facility]/Zipcode Phone Number [place] [phone] [place] [address] CENTER [id number] PHENOTYP (01/19/2020 9:43 PM CDT) Specimen Blood - Entire right upper arm (body str ucture) Narrative Performed At This result has an attachment that is no t available. Performing Organization Address [facility] Phone Number [facility] [address] [place], [place] Blood gas, arterial (01/19/2020 3:44 PM CDT) Pathologist Sig nature pH, Arterial 7.42 7.35 - 7.45 [facility] pCO2, Arterial 36 35 - 45 mmHg [facility] pO2, Arterial 78 (L) 80 - 90 mmHg [facility] O2 Sat, Arterial 96.2 96.0 - 97.0 % [facility] HCO3, Arterial 23 21 - 29 mmol/L [facility] Base Excess, Arterial -1.9 -2.0 - 3.0 [facility] mmol/L [facility] Patient Temperature 36.1 C [facility] FIO2 28.0 % [facility] Specimen Blood, Arterial Performing Organization Address [facility] Phone Number [facility] [address] [place] [address] [place] Cryptococcal antigen (01/19/2020 3:04 PM CDT) Cryptococcal Negative Negative, [facility] Antigen, Serum Interference [facility] Specimen Blood Performing Organization Address [facility] Phone Number [facility] [address] [place] [address] [place] Rubeola antibody IgG (01/19/2020 3:04 PM CDT) [...] patient. For additional information, please refer to http://education.Voice2Insight/faq/RDN881 (This link is being provided for informational/ educational purposes only.) Specimen Blood Narrative Performed At Performing Lab [facility] *QDID [employer] [facility] [employer] [address] [place] [address] Sudhakar Hargrove MD Performing Organization Address City/[facility] Phone Number [place] [address] [facility] Rubella antibody, IgG (01/19/2020 3:04 PM CDT) Pathologist Sig nature Rubella IgG Quant 127.0 (H) <8.0 IU/mL [facility] Specimen Blood Narrative Performed At Rubella IgG Result Interpretation: [facility] </= 7.0 IU/mL Negative - Presumed non-immune 8.0 - 9.9 IU/mL Equivocal >= 10.0 IU/mL Positive - Presumed immune Performing Organization Address [facility] Phone Number [address] [address] CENTER Varicella zoster antibody, IgG (01/19/2020 3:04 PM CDT) Pathologist Sig nature Varicella IgG 3.6 [facility] Specimen Blood Narrative Performed At VARICELLA ZOSTER RESULT INTERPRETATIONS: [facility] <=0.8 Al Nonreactive: Presumed non-immune to VZV 0.9-1.0 Al Equivocal >=1.1 Al Reactive: Presumed immune to VZV Performing Organization Address [facility]/Zipcode Phone Number [address] [address] CENTER Mumps antibody, IgG (01/19/2020 [...] At Performing Lab [facility] *QDID [employer] [facility] Infect[facility] [employer] [address] [place] [address] Sudhakar Hargrove MD Performing Organization Address City/State/Zipcode Phone Number [place] [address] [facility] US breast bilateral (01/19/2020 9:10 AM CDT) Specimen Narrative Performed At FINAL REPORT [facility] COMPLETE ULTRASOUND OF BOTH BREASTS AND AXILLA: 01/19/2020 Color flow and real-time ultrasound of b oth breasts four quadrants, retroareolar, and axilla regions were pe rformed. Hein scale images of the real-time examination were review ed. No significant abnormalities were seen s onographically in either breast. IMPRESSION: BENIGN The findings have been discussed with [facility] patient. There is no sonographic evidence of bette gnancy. Correlation with mammography is recommen ded. Signed: Jorge Brooks MD Report Verified Date/Time: 01/19/2020 09:52:28 Reading Location: [address] Mammo Re ading Room Procedure Note [...] BENIGN The findings have been discussed with [facility] patient. There is no sonographic evidence of bette gnancy. Correlation with mammography is recommen ded. Signed: Jorge Brooks MD Report Verified Date/Time: 01/19/2020 0 9:52:28 Reading Location: [address] Mammo Re ading Room Performing Organization Address [facility] Hospital[facility] Phone Number GE RIS Aldosterone (01/19/2020 4:11 AM CDT) Aldosterone 22 ng/dL [facility] Comment: INCORPORATED Adult Reference Ranges for Aldosterone: Upright 8:00-10:00 am < or = 28 ng/dL Upright 4:00-6:00 pm < or = 21 ng/dL Supine 8:00-10:00 am 3-16 ng/dL This test was developed and its analytical performance characteristics have been determined by [employer] [facility]. It has not been cleared or approved by FDA. This assay has been validated pursuant to the CLIA regulations and is used for clini steven purposes. Specimen Blood Narrative Performed At Performing Lab [email or web address] [facility] [place] [address] [place] [address] Mark Encarnacion MD, PhD, AMINA Performing Organization Address [facility] [place] Phone Number [facility] [place] [address] INCORPORATED [address] Medigram Renin, plasma (01/19/2020 4:11 AM CDT) PRA,LC/MS/MS 1.51 0.25 - 5.82 [facility] Comment: ng/mL/h INCORPORATED This test was developed and its analytical performance characteristics have been determined by [employer] [facility]. It has not been cleared or approved by FDA. This assay has been validated pursuant to the CLIA regulations and is used for clini steven purposes. Specimen Blood Narrative Performed At Performing Lab [email or web address] [facility] [place] [address] [place] [address] Mark Encarnacion MD, PhD, AMINA Performing Organization Address [facility] [place] Phone Number [employer] [place] [address] abdomen without IV contrast (01/19/2020 12:40 [...] Report Verified Date/Time: 01/19/2020 08:09:04 Reading Location: [facility] [employer] [facility] Reading Room - [facility] F1 [id number] Procedure Note Interface, External Ris In [...] Verified Date/Time: 01/19/2020 0 8:09:04 Reading Location: [facility] [employer] Reading Room - [place] [address] Performing Organization Address City/State/Zipcode Phone Number [employer] US renal complete (01/19/2020 12:20 AM CDT) Specimen Narrative Performed At FINAL REPORT [employer] Ultrasound of the Kidneys Clinical History: Re-examine [...] Date/Time: 01/19/2020 0 1:26:59 Performing Organization Address City/[facility] Phone Number [facility] Protein, random urine (01/18/2020 8:49 PM CDT) Pathologist Sig nature Protein, Urine 45 (H) 0 - 14 mg/dL [facility] Specimen Urine - Urine, Sterile Collection Narrative Performed At Waist Cutter ID - EDWIN B [facility] Performing Organization Address [facility]/Zipcode Phone Number [facility] [address] [place] [address] CENTER Creatinine, random urine (01/18/2020 8:49 PM CDT)Only the most recent of2 resultswithin the time period is included. Pathologist Sig nature Creatinine, Ur 181.3 mg/dL [facility] Specimen Urine - Urine, Sterile Collection Narrative Performed At Reference Range: No Normals [facility] Waist Cutter ID - EDWIN B Performing Organization Address City/[facility]/Zipcode Phone Number [facility] [address] [place] [address] [place] Eosinophil smear (01/18/2020 8:49 PM CDT) Pathologist Sig nature Eosinophil Smear Rare EOS =less No EOS seen [facility] than 5% WBCs [facility] seen are EOS (A) [place] Specimen Urine - Urine, Sterile Collection Performing Organization Address [facility]/Zipcode Phone Number [facility] [address] [place] [address] [place] Myocardial Perfusion Pet/CT (Rest & Stress) (01/18/2020 9:20 AM CDT) Specimen Narrative Performed At FINAL REPORT [employer] PROCEDURE: MYOCARDIAL PERFUSION PET IMAG ING (Rest/Stress) CPT CODE: 83598 INDICATION: Evaluation for liver transpl ant CARDIOVASCULAR [...] Report Verified Date/Time: 01/18/2020 12:45:40 Reading Location: [address] P327B Nuc Med Reading Room Procedure Note Interface, External Ris In - 01/18/2020 12:47 PM CDT FINAL REPORT PROCEDURE: MYOCARDIAL PERFUSION PET IMAG ING (Rest/Stress) CPT CODE: 39221 INDICATION: Evaluation for liver transpl ant CARDIOVASCULAR [...] Verified Date/Time: 01/18/2020 1 2:45:40 Reading Location: [address] P327B Nuc Med Reading Room Performing Organization Address City/State/Zipcode Phone Number [facility] Treadmill tolerance(Non-Nuclear Treadmill) (01/18/2020 8:57 AM CDT) [...] 452 ms QTC Calculation(Bazett) 458 ms P [place] 59 degrees R [place] 32 degrees T [place] 56 degrees Normal sinus rhythm Low voltage [...] 452 ms QTC Calculation(Bazett) 458 ms P [place] 59 degrees R [place] 32 degrees T [place] 56 degrees Normal sinus rhythm Low voltage QRS Nonspecific ST abnormality 17 JAN 2020 11:05 Nonspecific T wave abnormality Nonspecif ic T wave abnormality, improved in QT has shortened Confirmed by MD FARHAT, [facility] ([id number]) on 01/18/2020 2:19:38 PM Performing Organization [...] is no t available. Performing Organization Address City/[facility] Phone Number [facility] [address] [place] [address] [address] REPORT OF PROCEDURE - [...] nature Case Report Surgical Pathology Report Case: [id number] [facility] Authorizing Provider: Sylvie George MD Collected: 01/17/2020 08:15 AM [employer] [facility] Ordering Location: 01 [address] Received: 01/17/2020 01:50 PM [facility]ENTER Service Pathologist: Humaira Mendez MD Specimen: Duodenum, bio psy ADDENDUM THIS ADUODENUMIS ISSUED TO R EPORT THE FINDINGS IN THE DEEPER LEVELS OF THE BIOPSY AND GIVE THE FINAL DIAGNOSIS: [facility] Addendum [facility] electronically signed DUODENUM, ENDOSCOPIC BIOPSY: MEDICAL [address] TER by Helekar, Humaira - ECTATIC VESSELS IN THE LAMINA PROPRIA, SUGGESTIVE OF PORTAL DUODENOPATHY MD Siva on - NO FEATURES OF CELIAC DISEASE SEEN 01/19/2020 at 4:12 PM - NO GRANULOMAS, DYSPLASIA OR MALIGNANCY SEEN DIAGNOSIS DUODENUM, ENDOSCOPIC BIOPSY: [facility] Electronically signed - SUPERFICIAL FRAGMENTS OF SMALL BOWEL MUCOSA WITH GASTRIC FOVEOLAR METAPLASIA [facility] by Vanessa [facility] MD Siva o n 01/18/2020 at 3 :50 PM Signing Pathologist Direct Phone Line: CPT Code(s) 35252 [facility] CLINICAL HISTORY Procedure: upper endoscopy, biopsy and colonosc opy [facility] Pre and postop diagnosis: anemia [facility] SPECIMEN SOURCE A. Duodenum; biopsy [facility] GROSS DESCRIPTION A. The specimen is [facility] received in [facility] with the patient's name, accession number and "[email or web address]" and consists of one garduno-pink mucosal-covered pieces of tissue measuring 0.3 x 0.2 x 0.1 cm. The specimen is submitted entirely following filtration in a cassette A1. HS/pl MICROSCOPIC PERFORMED [facility] Specimen Tissue - Duodenal structure (body struct ure) Performing Organization Address [facility]/Zipcode Phone Number [address] [address] CENTER Lactate dehydrogenase (LDH) (01/16/2020 12:24 PM CDT) Pathologist Sig nature LDH 250 (H) 125 - 220 U/L [facility] Specimen Blood Narrative Performed At Waist Cutter ID - TUAN Mera [facility] Performing Organization Address City/[facility]/Zipcode Phone Number [address] [address] CENTER Vitamin B12 and Folate (01/16/2020 11:25 AM CDT) Pathologist Sig nature Vitamin B12 1,107 (H) 213 - 816 pg/mL [facility] Folate 3.40 (L) >=7.00 ng/mL [facility] Specimen Blood Narrative Performed At Waist Cutter ID - NTP [facility] Performing Organization Address City/State/Zipcode Phone Number [facility] [address] [place], [place] [phone] CENTER HIV-1 Antigen with HIV-1/2 Antibody (01/16/2020 11:25 AM CDT) Pathologist Sig nature HIV-1 Antigen with Nonreactive Nonreactive [facility] HIV 1&2 Antibody [facility] Specimen Blood Narrative Performed At Waist Cutter ID - TUAN C [facility] Performing Organization Address City/[facility]/Zipcode Phone Number [address] [phone] CENTER Haptoglobin (01/16/2020 11:25 AM CDT) Pathologist Sig nature Haptoglobin <8 (L) 14 - 258 mg/dL [facility] Specimen Blood Narrative Performed At Waist Cutter ID - TUAN C [facility] Performing Organization Address City/[facility] Phone Number [facility] [address] [place] [address] [place] US abdominal with doppler (01/16/2020 6:30 AM CDT) Specimen Narrative Performed At FINAL REPORT [employer] ULTRASOUND ABDOMEN COMPLETE, ULTRASOUND DUPLEX DOPPLER [...] Report Verified Date/Time: 01/16/2020 07:32:01 Reading Location: [address] Reading Room Procedure Note Interface, External [...] Verified Date/Time: 01/16/2020 0 7:32:01 Reading Location: [address] Reading Room Performing Organization Address City/[facility] Phone Number [facility] Drug screen, urine, transplant (01/15/2020 9:52 PM CDT) Specimen Urine Narrative Performed At This result has an attachment that is no t available. Performing Organization Address [facility] Phone Number [address] [phone] Blood typing, automated - - at seperate draw time from initial type and screen (01/15/2020 6:16 PMCDT) Pathologist Sig nature ABO/RH AUTOMATED A POSITIVE [facility] (BEAKER) [facility] Specimen Blood Performing Organization Address [facility] Phone Number [facility] [address] [place] [address] [address] chest without IV contrast (01/15/2020 5:54 PM CDT) Specimen Narrative Performed At FINAL REPORT [employer] CT of the chest, without contrast Clinical [...] Report Verified Date/Time: 01/15/2020 17:57:54 Reading Location: [address] Reading Room Procedure Note Interface, External [...] Verified Date/Time: 01/15/2020 1 7:57:54 Reading Location: [address] Reading Room Performing Organization Address City/[facility]/Zipcode Phone Number GE RIS XR chest [...] Report Verified Date/Time: 01/15/2020 17:16:49 Reading Location: [address] Reading Room Procedure Note Interface, External [...] Verified Date/Time: 01/15/2020 1 7:16:49 Reading Location: [address] Reading Room Performing Organization Address City/[facility]/Zipcode Phone Number GE RIS XR mandible [...] Report Verified Date/Time: 01/15/2020 17:22:12 Reading Location: [address] Reading Room Procedure Note Interface, External [...] Verified Date/Time: 01/15/2020 1 7:22:12 Reading Location: [facility] [address] [place] [address] Reading Room Performing Organization Address City/[facility]/Zipcode Phone Number [facility] Mitochondria M2 Antibody (IgG) (01/15/2020 4:17 PM CDT) Mitochondria M2 Ab <20.0 See Note: U [facility] Comment: INCORPORATED Reference Range: NEGATIVE: < OR = 20.0 EQUIVOCAL: 20.1-24.9 POSITIVE: > OR = 25.0 Specimen Blood Narrative Performed At Performing Lab [facility] EZ [facility] [address] [place] [address] Mark Encarnacion MD, PhD, AMINA Performing Organization Address City/[facility]/Zipcode Phone Number [place] [address] [facility] Iron, TIBC, % sat. (without ferritin) (01/15/2020 4:17 PM CDT) Pathologist Sig nature Iron 144.0 40.0 - 160.[address] [facility] ug/dL [facility] TIBC 129 (L) 250 - 450 ug/dL [facility] Iron % Saturation 112 (H) 20 - 55 % [facility] Specimen Blood Narrative Performed At Waist Cutter ID - DB [facility] Performing Organization Address [facility] Phone Number [address] [address] [place] Hepatitis C antibody (01/15/2020 4:17 PM CDT) Pathologist Sig nature Hepatitis C Ab Nonreactive Nonreactive [facility] Specimen Blood Narrative Performed At Waist Cutter ID - DB [facility] Performing Organization Address [facility] Phone Number [address] [address] [place] Cytomegalovirus antibody, IgM (01/15/2020 4:17 PM CDT) Pathologist Sig nature CMV IGM Negative Negative, Equivocal [facility] Specimen Blood Narrative Performed At CMV IgM Result Interpretation: [facility] </= 0.8 Al Negative 0.9-1.0 Al Equivocal >/= 1.1 Al Positive Performing Organization Address [facility] Phone Number [address] [address] [place] Actin (Smooth Muscle) Antibody, IgG (01/15/2020 4:17 [...] Performed At Performing Lab [facility] [employer] [place] [address] [place] [address] Mark Encarnacion MD, PhD, AMINA Performing Organization Address City/[facility] Phone Number [place] [address] [address] [facility] [id number] (01/15/2020 4:17 PM CDT) Pathologist Sig nature A-1 Antitrypsin 121.20 90.00 - 200.[address] [facility] mg/dL [facility] Specimen Blood Narrative Performed At Waist Cutter ID - DB [facility] Performing Organization Address [facility] Phone Number [address] [address] CENTER Hepatitis A antibody, IgM (01/15/2020 4:17 PM CDT) Pathologist Sig nature Hep A IgM Nonreactive Nonreactive [facility] Specimen Blood Narrative Performed At Waist Cutter ID - DB [facility] Performing Organization Address [facility] [place] [place] Phone Number [address] [address] [place] Carbohydrate antigen 19-9 (CA 19-9) (01/15/2020 4:17 [...] Lab [facility] E[facility] [employer] [place] [address] [place] [address] Mark Encarnacion MD, PhD, AMINA Performing Organization Address City/[facility] Phone Number [place] [address] [facility] Ceruloplasmin (01/15/2020 4:17 PM CDT) Pathologist Sig nature Ceruloplasmin 21 18 - 53 mg/dL [facility] JERAMY Specimen Blood Narrative Performed At Performing Lab [facility] *BEATRIZ [facility], [address] [place] [phone] Jorje Jauregui MD, PhD Performing Organization Address City/State/Zipcode Phone Number [place] [address] INCORPORATED [address] [employer] Zinc (01/15/2020 4:17 PM CDT) Zinc 39 (L) 60 - 130 [facility] Comment: mcg/dL INCORPORATED This test was developed and its analytical performance characteristics have been determined by [employer]. It has not been cleared or approved by [facility] FDA. This assay has been validated pursuant to the CLI A regulations and is used for clinical purposes. Specimen Blood Narrative Performed At Performing Lab [facility] *BEATRIZ [facility], [address] [place] [phone] Jorje Jauregui MD, PhD Performing Organization Address [facility] Phone Number [place] [address] INCORPORATED [address] [facility] Hepatitis B core antibody, IgM (01/15/2020 4:17 PM CDT) Pathologist Sig nature Hep B C IgM Nonreactive Nonreactive [facility] Specimen Blood Narrative Performed At Waist Cutter ID - DB [facility] Performing Organization Address City/[facility]/Zipcode Phone Number [address] [address] CENTER EBV-VCA antibody, IgM (01/15/2020 4:17 PM CDT) GABRIEL CHING VIRAL Negative Negative, Equivocal [facility] CAPSID ANTIGEN IGM [facility] Specimen Blood Narrative Performed At Gabriel Ching Viral Capsid Antigen IgM Result [facility] Interpretation: </= 0.8 Al Negative 0.9-1.0 Al Equivocal >/= 1.1 Al Positive Performing Organization Address City/[facility]/Zipcode Phone Number [address] [address] [place] EBV-VCA antibody, IgG (01/15/2020 4:17 PM CDT) GABRIEL CHING VIRAL Positive (A) Negative, [facility] [employer] ANTIGEN IGG Equivocal [facility] Specimen Blood Narrative Performed At Gabriel Ching Viral Capsid Antigen IgG Result [facility] Interpretation: </= 0.8 Al Negative 0.9-1.0 Al Equivocal >/= 1.1 Al Positive Performing Organization Address [facility] Phone Number [address] [address] [place] Hepatitis B core antibody, total (01/15/2020 4:17 PM CDT) Pathologist Sig nature Hep B Core Total Ab Nonreactive Nonreactive [facility] Specimen Blood Narrative Performed At Waist Cutter MABLE CASILLAS F [facility] Performing Organization Address [facility] [place] [place] Phone Number [address] [address] CENTER Vitamin D, 25-Hydroxy (01/15/2020 4:17 PM CDT) Pathologist Sig nature Vitamin D 25-Hydroxy 6.2 (L) 6.6 - 49.9 ng/mL [facility] Specimen Blood Narrative Performed At Effective 05/07/2017: Reference Range Ch von [facility] New: 6.6-49.9 ng/mL Previous: 13.0-47.8 ng/mL Recommended Vitamin D Target Range: 30.0-40.0 ng/mL Waist Cutter ID - DB Performing Organization Address [facility] Phone Number [address] [address] CENTER RPR (01/15/2020 4:17 PM CDT) Pathologist Sig nature RPR Nonreactive Nonreactive [facility] Specimen Blood Performing Organization Address [facility] Phone Number [address] [address] [place] Hepatitis B surface antibody (01/15/2020 4:17 PM CDT) Pathologist Sig nature Hep B S Ab 25.0 (H) <8.0 mIU/mL [facility] Specimen Blood Narrative Performed At Waist Cutter ID - DB [facility] Performing Organization Address [facility] Phone Number [address] [address] [place] Hepatitis B surface antigen (01/15/2020 4:17 PM CDT) Pathologist Sig nature HBsAg Screen Nonreactive Nonreactive [facility] Specimen Blood Narrative Performed At Specimen is considered negative for HBsAg. [facility] Performing Organization Address [facility] [place] [place] Phone Number [address] [address] [place] Cytomegalovirus antibody, IgG (01/15/2020 4:17 PM CDT) CYTOMEGALOVIRUS, Positive (A) Negative, [facility] IGG Equivocal [facility] Specimen Blood Narrative Performed At CMV IgG Result Interpretation: [facility] </= 0.8 Al Negative 0.9-1.0 Al Equivocal >/=1.1 Al Positive Performing Organization Address [facility] [place] [place] Phone Number [address] [address] [place] aPTT (01/15/2020 4:17 PM CDT) Pathologist Sig nature PTT 36.8 (H) 22.5 - 36.0 seconds [facility] Specimen Blood Performing Organization Address [facility] Phone Number [address] [address] [place] Fibrinogen (01/15/2020 4:17 PM CDT) Pathologist Sig nature Fibrinogen 114 (L) 225 - 434 mg/dl [facility] Specimen Blood Performing Organization Address City/State/Zipcode Phone Number [address] [address] CENTER Anti-Nuclear Antibody (REILLY) (01/15/2020 4:17 PM CDT) Pathologist Sig [facility] REILLY Negative Negative [facility] Specimen Blood Narrative Performed At Test performed by IFA method. [facility] Test performed by IFA method. Performing Organization Address City/[facility] Phone Number [address] [address] CENTER T3 (01/15/2020 4:17 PM CDT) Pathologist [facility] T3, Total 51 48 - 159 ng/dL [facility] Specimen Blood Narrative Performed At This result has an attachment that is no t available. Performing Organization Address City/[facility] Phone Number [facility] [address] [place] Transferrin (01/15/2020 4:17 PM CDT) Pathologist Sig [facility] Transferrin 102 (L) 174 - 382 mg/dL [facility] Specimen Blood Narrative Performed At Waist Cutter ID - DB [facility] Specimen moderately icteric Performing Organization Address City/[facility] Phone Number [address] [address] CENTER TSH (01/15/2020 4:17 PM CDT) Pathologist Sig [facility] TSH 5.549 (H) 0.350 - 4.940 uIU/mL [facility] Specimen Blood Narrative Performed At Waist Cutter ID - DB [facility] Performing Organization Address City/[facility]/Zipcode Phone Number [address] [address] CENTER T4 (01/15/2020 4:17 PM CDT) Pathologist Sig nature T4, Total 4.3 (L) 4.9 - 11.7 ug/dL [facility] Specimen Blood Narrative Performed At Waist Cutter ID - NTP [facility] Performing Organization Address City/[facility] Phone Number [address] [address] CENTER Hemoglobin A1c (01/15/2020 4:17 PM CDT) Pathologist Sig nature Hemoglobin A1C <3.8 (L) 4.3 - 6.1 % [facility] Specimen Blood Performing Organization Address [facility] Phone Number [address] [address] CENTER Ferritin (01/15/2020 4:17 PM CDT) Pathologist Sig nature Ferritin 489.86 (H) 5.00 - 275.00 ng/mL [facility] Specimen Blood Narrative Performed At Waist Cutter ID - NTP [facility] Performing Organization Address [facility] Phone Number [address] [address] CENTER Carcinoembryonic Antigen (CEA) (01/15/2020 4:17 PM CDT) Pathologist Sig nature CEA, SERUM 7.9 (H) 0.0 - 5.0 ng/mL [facility] Specimen Blood Narrative Performed At Waist Cutter ID - DB [facility] Performing Organization Address City/[facility] Phone Number [address] [address] CENTER Ethanol (01/15/2020 4:17 PM CDT) Pathologist Sig nature Ethanol Lvl <10 <=10 mg/dL [facility] Specimen Blood Narrative Performed At [facility] C[facility] ID - [facility] Performing Organization Address City/[facility] Phone Number [address] [address] CENTER 2D Echo W/Doppler(CW/PW/Color) (01/15/2020 2:45 PM CDT) Pathologist Sig nature Ejection Fraction [facility] ECHO [facility]ART[facility] Specimen Narrative Performed At Transthoracic Echocardiography Report (T TE) [facility] Demographics Patient Name CICI CALDERON Date of Study 01/15/2020 ALYSE Gender Female Visit Number [id number] Race Unknown Room Number 1515 Number Date of 1955 Referring Physician Ren Hernandez MD Age 64 year(s) Disability Examiner Lisa Bautista [facility] S Interpreting Jai grajeda MD Physician Procedure [...] Study 01/15/2020 ALYSE Gender Female Visit Number [id number] Race Unknown [place] [id number] Number Date of 1955 Referri Physician Ren Hernandez MD Age 64 year(s) Sonogra lidia Lisaana Bautista [facility] Interpr eting Jai Arreguin MD [...] l/min/m^2 Performing Organization Address City/State/Zipcode Phone Number [facility] Carotid doppler bilateral (01/15/2020 2:41 PM CDT) [facility] nature Ejection Fraction [facility] Specimen Impressions Performed At Right Impression [facility] 1. The internal, common and external [...] Performed At LAB - Carotid Duplex Study [facility] ECHO [facility]ART[facility] Demographics Patient Name CICI CALDERON Date of Study 01/15/2020 ALYSE Age 64 Visit Number [id number] Gender Female Accession Number [id number] Date of 1955 Referring [facility] Room Number 1515 Physician Disability Examiner Herbert Lechuga Interpreting Chelsea Resendez [facility] Physician Procedure Type of Study: Cerebral: [...] Study 01/15/2020 ALYSE Age 64 Visit Number [id number] Gen margarita Female Accession Number [id number] Ramirez e of 1955 Referring Eliecer ann Number 1515 Physician Disability Examiner Herbert Lechuga Int erpreting [place] Resendez, T [...] City/State/Zipcode Phone Number [facility] ECHO HEART[facility] Hepatitis panel, acute (01/15/2020 8:32 AM CDT) Pathologist Sig nature Hep A IgM Nonreactive Nonreactive [facility] Hep B C IgM Nonreactive Nonreactive [facility] Hepatitis C Ab Nonreactive Nonreactive [facility] HBsAg Screen Nonreactive Nonreactive [facility] Specimen Blood Narrative Performed At Waist Cutter [facility] Performing Organization Address [facility] Phone Number [address] [address] CENTER Ammonia (01/15/2020 8:32 AM CDT) Pathologist Sig nature Ammonia 19 18 - 72 mol/L [facility] Specimen Blood Narrative Performed At Waist Cutter ID - [facility] Performing Organization Address [facility] Phone Number [address] [address] CENTER Uric acid (01/15/2020 3:56 AM CDT) Pathologist Sig nature Uric Acid 15.7 (H) 2.6 - 7.2 mg/dL [facility] Specimen Blood Narrative Performed At Waist Cutter ID [facility] Specimen moderately icteric Performing Organization Address [facility] Phone Number [address] [address] CENTER Gamma Glutamyl Transferase (GGT) (01/15/2020 3:56 AM CDT) Pathologist Sig nature GGT 15 9 - 64 U/L [facility] Specimen Blood Narrative Performed At Waist Cutter ID [facility] Specimen moderately icteric Performing Organization Address City/[facility] Phone Number [place] [phone] [place] [address] [place] Lipid panel (01/15/2020 3:56 AM CDT) Pathologist Sig nature Triglycerides 86 mg/dL [facility] [place] Cholesterol 101 mg/dL [facility] [place] HDL 12 mg/dL [facility] [place] LDL Calculated 72 mg/dL [facility] [place] Specimen Blood Narrative Performed At Triglyceride Reference Range: [facility] Low Risk <150 Borderline 150-199 High Risk 200-499 Very High Risk >=500 Cholesterol Reference Range: Low Risk <200 Borderline 200-239 High Risk >240 HDL Cholesterol Reference Range: Low Risk >=60 High Risk <40 LDL Cholesterol Reference Range: Optimal <100 Near Optimal 100-129 Borderline 130-159 High 160-189 Very High >=190 Waist Cutter ID - NTP Specimen moderately icteric Performing Organization Address City/State/Zipcode Phone Number [place] [phone] [place] [address] [place] SARS-CoV2/RT-PCR (Asymptomatic ONLY) (01/14/2020 7:28 PM CDT) SARS-COV2/RT-PCR Not Detected Not Detected, [facility] SARS-COV-2 [facility] Specimen Other - Nasopharyngeal wall structure (b arsenio structure) Narrative Performed At Negative results do not preclude SARS-CoV-2 [facility] infection and should not be [...] the Act. Fact Sheet for Healthcare Providers: https://www.[employer]/Documents/Xpert%20Xpre ss%20SARS%20CoV-2/Fact%20Sheets/3023802%20SAR S-COV-2%20HEALTHCARE%20PROVIDERS%20FACT%20SHEE T.pdf Fact Sheet for Healthcare Patients: https://www.[employer]/Documents/Xpert%20Xpre ss%20SARS%20CoV-2/Fact%20Sheets/3023801%20SAR S-COV-2%20PATIENT%20FACT%20SHEET.pdf Performing Laboratory: [address] [place] [address] Performing Organization Address City/State/Zipcode Phone Number [address] [address] CENTER after 06/07/2019 Insurance Payer Benefit Plan / Subscriber ID Effective Dates Phone Addre ss Type Group [employer] - [employer] MEDICARE [id number] 2019-Presen [phone] [address] MEDICARE MGD HMO POS PPO t 2 [id number] [place] [address] CDC REVIEW CDC REVIEW [id number] 2020-[place]se [address] [place] [address] Advance Directives For more information, please contact: [phone] Code Status Date Activated Date Inactivated Comments Full Code 01/14/2020 8:09 PM 01/26/2020 8:41 PM This code status was determined by: Patient
--- OUTSIDE RECORDS SUMMARY | 2020-06-07 08:58 | XMS REPORT ---
:1955 Author Organization [facility] Address 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 ALLERGIES Allergen (clinical Drug/Non Drug Reaction Allergy Type Onset Date S tatus drug ingredient) Allergy documented on EMR Sulfa hives Drug Allergy Active Levaquin vomiting/diarrh Drug Allergy Active ea erythromycin Erythromycin(NDC vomiting/diarrh Drug Allergy Active Code:[address]-91) ea tetracycline Tetracycline hives Drug Allergy Active HCl([facility] Code:[address]-19) ENCOUNTERS from 1955 to 2020-05-03 Encounter Location Date Provider Diagnosis [facility] [address] Apr, Mitzy English Medicare annual Family Medicine [place] wellness visit, [id number] subsequent Z00. 00 IMMUNIZATIONS Vaccine Route Administration [...] No Results REASON FOR VISIT Wellness Exam/[employer] [phone], Subsequent Annual Wellness Visit (AWV) MEDICAL (GENERAL) [...] Name:Mitzy English, 2020-07-19 10 :40:00 AM, [address], [address], [place], [address], Insurance Providers Payer Name Payer Payer Insured Patient Coverage Coverage End Address Phone Name Relationship to Start Date Ramirez e Insured A[employer] [phone] Irma Christian self MEDICARE PPO [id number] [facility] [address]
--- OUTSIDE RECORDS SUMMARY | 2020-06-07 08:58 | XMS REPORT | Continuity of Care Document ---
:1955 Author Organization [facility] t Address [address] [place] [address] Care Team Providers Name Role Phone Nahun Leonard MD Primary Care Physician Rl Attending Clinician Unavailable Mayank ESPINOSA, R Attending Clinician Unavailable Baltazar Hernandez Attending Clinician Unavailable Alfonso Attending Clinician Unavailable Nhi Montgomery MD Attending Clinician Yuriy Cartagena MD Attending Clinician Nhi MONTGOMERY Attending Clinician Unavailable Sudhakar Sahni MA Attending Clinician Unavailable Alex Riley MD Attending Clinician ALEX RILEY Attending Clinician Unavailable Angel Luis ESPINOSA Attending Clinician Unavailable Genesis Acevedo MA Attending Clinician Unavailable Yvette Morales Attending Clinician Unavailable Ildefonso Saini MD Attending Clinician Herber Attending [...] Date Holli plunkett AETNA - [id number] [address] [facility] MEDICARE MGD 00:00:00 - Medical CAREAETNA Center MEDICARE HMO POS [id number] [facility] [id number] [address] CDC REVIEWCDC [id number] [facility] [id number] 00:00:00 - [facility] [place] [address] Problems Condition Condition Condition Status Onset Resolution Last Treating Co mments Source Name Details Category Date Date Treatment Clinician Date Acute Acute Disease Active [facility]13 [facility] - failure failure 00:[facility]: Medical 00 [place] Elevated Elevated Disease Active [facility] serum serum 01-10 - creatinine creatinine 00:00: Mn dical 00 Center Other Other Disease Active [facility] ascites ascites 16 [facility] - 00:[facility]: Medical 00 [place] Cirrhosis Cirrhosis Disease Active 2015-07 Last [facility] [...] [facility] esophageal esophageal 09-01 Ashlyn Arteaga - 00:00: t & Plan: Medical 00 EGD in Center March 2016 was negative for varices. Obesity Obesity Disease Active 2015-[address] (BMI (BMI 09-01 Ashlyn Arteaga - 35.0-39.9 35.0-39.9 00:00: t & [...] 2015-[address] for for 09-01 Ashlyn Arteaga - malignant malignant 00:00: t & Plan: [...] Allergy 09-01 [facility] - [facility]: Medical 00 [place] Tetracyc Adverse Active hives [facility] line HCl Reaction [facility] Levaquin Adverse Active vomiting/jocy C [facility] Reaction rrhea [facility] Erythrom Adverse Active vomiting/jocy C [facility] ycin Reaction rrhea [facility] Family History Family Member Diagnosis Comments Start Date Stop Date Source Natural brother Diabetes [facility] Natural brother Hypertension [facility] Natural brother Arthritis [facility] Natural brother COPD [facility] Natural father Diabetes [facility] Natural father Heart disease [facility] Natural mother Diabetes [facility] Natural mother Heart disease [facility] Natural sister Cancer [facility] Social History Social Habit Start Date Stop Date Quantity Comments Source Sex Assigned At [facility] Tobacco use and 2020-04-11 2020-04-11 Never used [facility] - exposure 00:00:00 00:00:[address] [facility] Alcohol intake 2020-04-11 2020-04-[address] [facility] Holli carcamo rivera - 00:00:00 00:00:00 [facility] alcohol [facility] (finding) Alcohol Comment 2016-07-01 2016-07-01 social last drink LETTY Medina - 00:00:00 00:00:00 06/15/[address] [facility] Smoking Status Start Date Stop Date Source Former smoker 2020-04-11 00:00:00 2020-04-11 00:00:00 [facility] Medications Ordered Filled Start Stop Current [...] Medica l 400 mg 00 total) by [place] (241.3 mg mouth magnesium) daily. tablet calcitrioL Yes Cirrhosis .5ug QD Take [address] (ROCALTROL) 04-11 of liver capsule L ukes - 0.5 MCG 00:00: without (0.5 mcg Med ical capsule 00 ascites, total) by [facility] ter unspecified mouth hepatic daily. cirrhosis type (HCC) ergocalcife 2020- Yes Vitamin D 84201I Q7D Take [address] rol 04-11 [...] 2 (two) times daily. ergocalcife 2019-2019- No [id number] Q7D Take [address] rol [...] (two) times daily. lactulose 2020-0 Yes 20g Q.[id number] Take [address] (CHRONULAC) 01-25 [id number] mLs (20 g [facility] - 20 gram/30 00:00: 3D total) by Mn dical mL solution 00 mouth 3 Cente r (three) times daily. calcitrioL 2019-0 2020- No .5ug QD Take [address] (ROCALTROL) 01-25 capsule Luke s - 0.5 MCG 00:00: 00:00 (0.5 mcg Medic al capsule 00 :00 total) by Center mouth daily. magnesium 2019- 2020- No 400mg QD Take [address] oxide 01-25 tablet [facility] - (MAG-OX) 00:00: 00:00 (400 mg Medic al 400 mg 00 :00 total) by Center (241.3 mg mouth magnesium) daily. tablet midodrine 2019-0 2020- No 2.5mg Q.[id number] Take [address] (PROAMATINE 01-25 [id number] tablet [facility] - ) 2.5 MG 00:00: [...] Max Daily Amount: 200 mg Albuterol Albuterol 2019-0 Yes Mitzy [address] Sulfate HFA Sulfate HFA 4-09 [place] needed [facility] - 00:00: [facility] 00 l [facility] Cimetidine Cimetidine Yes Mitzy [address] [place] [facility] Calcitriol Calcitriol Yes Mitzy [address] [place] [facility] Lactulose Lactulose Yes Mitzy [address] [place] [facility] Xifaxan Xifaxan Yes Mitzy [address] [place] [facility] Folic Acid Folic Acid Yes Mitzy [address] [place] [facility] Spironolact Spironolact Yes Mitzy [address] one one [place] [facility] Vitamin D2 Vitamin D2 Yes Mitzy [address] [place] [facility] MagOx 400 MagOx 400 Yes Mitzy [address] [place] with food [facility] Tramadol Tramadol Yes Mitzy [address] HCl HCl [place] as needed [facility] Midodrine Midodrine Yes Mitzy [address] [facility] HCl HCl [place] [facility] Pantoprazol Pantoprazol Yes Mitzy [address] e Sodium e Sodium [place] mixed with Lukes - apple Memoria juice or l applesauce [facility] ent Clinics Immunizations Ordered Filled Immunization Date Status Comments Sour e Immunization Name Name Hepatitis A (adult) Hepatitis A (adult) 2020-02-21 Completed [facility] - 00:00:00 [facility] Hepatitis B (adult) Hepatitis B (adult) 2020-02-21 Completed [facility] - 00:00:00 [facility] Vital Signs Vital Name Observation Time Observation Value Comments Source Systolic blood 2020-04-11 09:39:00 104 mm[Hg] [facility] Diastolic blood 2020-04-11 09:39:00 43 mm[Hg] [facility] Heart rate 2020-04-11 09:39:00 85 /min [facility] Body temperature 2020-04-11 09:39:00 36.28 Shaneka [facility] Respiratory rate 2020-04-11 09:39:00 18 /min [facility] Body height 2020-04-11 09:39:00 162.6 cm [facility] Body weight 2020-04-11 09:39:00 84.959 kg [facility] BMI 2020-04-11 09:39:00 32.15 kg/m2 [facility] Oxygen saturation in 2020-04-11 09:39:00 95 /min [facility] Arterial blood by Medical Ce ntsoren Pulse oximetry Procedures Procedure Date / Time Performing Clinician Source Performed PROTHROMBIN TIME/INR 2020-05-17 13:41:00 Kristofer Montgomery [facility] COMPREHENSIVE METABOLIC 2020-05-17 13:41:[address] [facility] CBC W/PLT COUNT & AUTO 2020-05-17 13:41:00 AmericaKristofer [facility] BILIRUBIN, DIRECT 2020-05-17 13:41:00 AmericaKristofer theodore [facility] PROTHROMBIN TIME/INR 2020-05-09 12:29:00 Kristofer Montgomery [facility] COMPREHENSIVE METABOLIC 2020-05-09 12:29:[address] [facility] CBC W/PLT COUNT & AUTO 2020-05-09 12:29:00 Kristofer Montgomery [facility] BILIRUBIN, DIRECT 2020-05-09 12:29:00 Kristofer Montgomery [facility] PROTHROMBIN TIME/INR 2020-05-02 13:25:00 Kristofer Montgomery [facility] COMPREHENSIVE METABOLIC 2020-05-02 13:25:[address] [facility] CBC W/PLT COUNT & AUTO 2020-05-02 13:25:00 AmericaKristofer theodore [facility] BILIRUBIN, DIRECT 2020-05-02 13:25:00 Kristofer Montgomery [facility] PLATELET ESTIMATION 2020-05-02 13:25:00 Kristofer Montgomery [facility] PROTHROMBIN TIME/INR 2020-04-25 13:13:00 AmericaKristofer theodore [facility] COMPREHENSIVE METABOLIC 2020-04-25 13:13:[address] [facility] CBC W/PLT COUNT & AUTO 2020-04-25 13:13:00 Kristofer Montgomery [facility] BILIRUBIN, DIRECT 2020-04-25 13:13:00 Kristofer Montgomery [facility] PLATELET ESTIMATION 2020-04-25 13:13:00 Kristofer Montgomery [facility] PROTHROMBIN TIME/INR 2020-04-18 08:56:00 Kristofer Montgomery [facility] COMPREHENSIVE METABOLIC 2020-04-18 08:56:[address] [facility] CBC W/PLT COUNT & AUTO 2020-04-18 08:56:00 Kristofer Montgomery [facility] BILIRUBIN, DIRECT 2020-04-18 08:56:00 AmericaKristofer theodore [facility] XR DXA BONE DENSITY STUDY 2020-04-11 11:51:00 Kristofer Montgomery [facility] ALPHA FETOPROTEIN (AFP), 2020-04-11 11:13:00 Sia Riley [facility] TUMOR MARKER [facility] BILIRUBIN, DIRECT 2020-04-11 11:13:00 Sia Riley [facility] COMPREHENSIVE METABOLIC 2020-04-11 11:13:[address] [facility] PROTHROMBIN TIME/INR 2020-04-11 11:13:00 Sia Riley [facility] CBC W/PLT COUNT & AUTO 2020-04-11 11:13:[address] [facility] PROTHROMBIN TIME/INR 2020-03-10 08:03:00 Kristofer Montgomery [facility] COMPREHENSIVE METABOLIC 2020-03-10 08:03:[address] [facility] CBC W/PLT COUNT & AUTO 2020-03-10 08:03:00 Kristofer Montgomery [facility] BILIRUBIN, DIRECT 2020-03-10 08:03:00 Kristofer Montgomery [facility] MISCELLANEOUS LAB ORDER 2020-02-15 12:29:00 Kristofer Montgomery [facility] MAGNESIUM 2020-02-15 12:29:00 AmericaKristofer theodore [facility] BILIRUBIN, DIRECT 2020-02-15 12:29:00 AmericaKristofer theodore [facility] COMPREHENSIVE METABOLIC 2020-02-15 12:29:[address] [facility] PROTHROMBIN TIME/INR 2020-02-15 12:29:00 AmericaKristofer [facility] CBC W/PLT COUNT & AUTO 2020-02-15 12:29:00 AmericaKristofer [facility] PROTHROMBIN TIME/INR 2020-02-08 10:23:00 AmericaKristofer [facility] 2020-02-08 10:23:[address] [facility] CBC W/PLT COUNT & AUTO 2020-02-08 10:23:00 AmericaKristofer [facility] BILIRUBIN, DIRECT 2020-02-08 10:23:00 AmericaKristofer [facility] PLATELET ESTIMATION 2020-02-08 10:23:00 AmericaKristofer theodore [facility] PROTHROMBIN TIME/INR 2020-02-01 09:25:00 AmericaKristofer theodore [facility] 2020-02-01 09:25:[address] [facility] CBC W/PLT COUNT & AUTO 2020-02-01 09:25:00 AmericaKristofer [facility] BILIRUBIN, DIRECT 2020-02-01 09:25:00 AmericaKristofer theodore [facility] RHYTHM STRIP - SCAN 2020-01-27 10:00:12 Provider, Default [facility] CARDIAC CATH REPORT - SCAN 2020-01-27 10:00:07 Provider, Default [facility] TRANSFUSE LEUKO-REDUCED 2020-01-26 22:41:07 Miguel Angel, Kaylin [facility] METANEPHRINES 2020-01-26 14:51:00 Blanca Hartley [facility] HE[facility] FUNCTION PANEL 2020-01-26 03:50:00 [facility] PROTHROMBIN TIME/INR 2020-01-26 03:50:00 [facility] CALCIUM, IONIZED 2020-01-26 03:50:00 [facility] COMPREH[facility]ABOLIC 2020-01-26 03:50:00 [facility] PHOSPHORUS 2020-01-26 03:50:[facility] MAG[facility] 2020-01-26 03:50:00 [place] CBC W/PLT COUNT & AUTO 2020-01-26 03:50:00 Florian Kinney [facility] HEPATIC FUNCTION PANEL 2020-01-25 03:47:00 [facility] PROTHROMBIN TIME/INR 2020-01-25 03:47:00 [facility] BASIC METABOLIC PANEL (7) 2020-01-25 03:47:00 Leena Arias [facility] MAGNESIUM 2020-01-25 03:47:00 [place] CBC W/PLT COUNT & AUTO 2020-01-25 03:47:00 Florian Kinney [facility] (CELLAVISION MANUAL DIFF) 2020-01-25 03:47:00 Florian Kinney [facility] TRANSFUSION SERVICE REPORT 2020-01-24 18:00:13 Provider, [facility] - SCAN [facility] PULMONARY FUNCTION - SCAN 2020-01-24 13:10:09 Provider, [facility] SPIROMETRY 2020-01-24 10:41:00 Mariana Lin [facility] DLCO (SINGLE BREATH 2020-01-24 10:41:00 [facility] LUNG VOLUMES 2020-01-24 10:41:00 Mariana Lin [facility] 6 MINUTE WALK(FOR LUNG 2020-01-24 10:20:00 Mariana Lin [facility] - TRANSPLANT ONLY) [facility] HEPATIC FUNCTION PANEL 2020-01-24 03:57:00 [place] [facility] PROTHROMBIN TIME/INR 2020-01-24 03:57:00 [place] [facility] CALCIUM, IONIZED 2020-01-24 03:57:00 Kermit Nicole [facility] PHOSPHORUS 2020-01-24 03:57:00 Kermit Nicole [facility] BASIC METABOLIC PANEL (7) 2020-01-24 03:57:00 Leena Arias [facility] MAGNESIUM 2020-01-24 03:57:00 [place] [facility] CBC W/PLT COUNT & AUTO 2020-01-24 03:57:00 [place] [facility] PREPARE LEUKO-REDUCED RBC 2020-01-23 23:54:00 Vitor Orozco [facility] TRANSFUSION SERVICE REPORT 2020-01-23 18:00:37 Bozena Lopes [facility] HEPATIC FUNCTION PANEL 2020-01-23 04:32:00 [place] [facility] PROTHROMBIN TIME/INR 2020-01-23 04:32:00 [place] [facility] B-TYPE NATRIURETIC FACTOR 2020-01-23 04:32:00 Kermit Nicole [facility] (BNP) [facility] CALCIUM, IONIZED 2020-01-23 04:32:00 Kermit Nicole [facility] PHOSPHORUS 2020-01-23 04:32:00 Kermit Nicole [facility] BASIC METABOLIC PANEL (7) 2020-01-23 04:32:00 Leena Arias [facility] MAGNESIUM 2020-01-23 04:32:00 [place] [facility] CBC W/PLT COUNT & AUTO 2020-01-23 04:32:00 Leena Arias [facility] (CELLAVISION MANUAL DIFF) 2020-01-23 04:32:00 [place] [facility] PREPARE LEUKO-REDUCED 2020-01-22 23:54:00 [facility] TRANSFUSION SERVICE REPORT 2020-01-22 18:01:00 Provider, Bozena [facility] TRANSFUSE LEUKO-REDUCED RED 2020-01-22 14:30:53 PamVitor [facility] - BLOOD CELLS [facility] CORTISOL 2020-01-22 08:23:00 IsmaMe sedrickhwish [facility] CALCIUM, IONIZED 2020-01-22 04:35:00 Russ Ha [facility] HEPATIC FUNCTION PANEL 2020-01-22 04:35:00 [facility] BASIC METABOLIC PANEL (7) 2020-01-22 04:35:00 [place] [facility] MAGNESIUM 2020-01-22 04:35:00 [place] [facility] CBC W/PLT COUNT & AUTO 2020-01-22 04:35:00 [place] [facility] (CELLAVISION MANUAL DIFF) 2020-01-22 04:35:00 [place] [facility] PROTHROMBIN TIME/INR 2020-01-22 04:34:00 [facility] DIRECT [facility]HG (KRISTI)/DIRECT 2020-01-22 04:34:00 Gregory [facility] ABORH, MANUAL 2020-01-22 04:34:00 Gregory, [facility] TRANSFUSION SERVICE REPORT 2020-01-21 18:00:48 Provider, Default [facility] BODY FLUID CULTURE + GRAM 2020-01-21 16:54:[address] [facility] STAIN [facility] BODY FLUID CELL COUNT WITH 2020-01-21 16:54:00 Kaylin Michelle [facility] US PARACENTESIS 2020-01-21 16:40:00 [place] [facility] MISCELLANEOUS LAB ORDER 2020-01-21 09:31:00 Eddiebrandonsedrick [facility] HEPATIC FUNCTION PANEL 2020-01-21 09:31:00 [place] [facility] PROTHROMBIN TIME/INR 2020-01-21 09:31:00 [place] [facility] COMPREHENSIVE METABOLIC 2020-01-21 09:31:[address] [facility] PHOSPHORUS 2020-01-21 09:31:00 Russ Ha [facility] MAGNESIUM 2020-01-21 09:31:00 AriasLeena [facility] CORTISOL 2020-01-21 09:31:00 Orestes [facility] RETICULOCYTE COUNT 2020-01-21 09:31:[address] [facility] PERIPHERAL BLOOD SMEAR - 2020-01-21 09:31:00 Miguel Angel, Kaylin [facility] CBC W/PLT COUNT & AUTO 2020-01-21 09:31:00 Russ [facility] XR CHEST 1 VIEW 2020-01-21 09:10:00 HaMichealRuss Critical access hospital/BEDSIDE [facility] METANEPHRINES, 24 HOUR 2020-01-20 22:51:00 [place] [facility] URINE [facility] CATECHOLAMINES, 2020-01-20 22:51:00 [place] [facility] FRACTIONATED, 24HR URINE Medical Center TYPE AND SCREEN, AUTOMATED 2020-01-20 20:39:00 Miguel Angel, Kaylin [facility] XR CHEST 1 VIEW 2020-01-20 20:28:00 [place] [facility] PORTABLE/BEDSIDE [facility] TRANSFUSION SERVICE REPORT 2020-01-20 18:01:30 Bozena Lopes [facility] - - SCAN Scanning [facility] MR ABDOMEN WITHOUT IV 2020-01-20 17:54:00 [place] [facility] CONTRAST [facility] HEPATIC FUNCTION PANEL 2020-01-20 04:10:00 [place] [facility] PROTHROMBIN TIME/INR 2020-01-20 04:10:00 [place] [facility] CALCIUM, IONIZED 2020-01-20 04:10:00 Leland [facility] COMPREHENSIVE METABOLIC 2020-01-20 04:10:00 [place] [facility] PHOSPHORUS 2020-01-20 04:10:[address] [facility] MAGNESIUM 2020-01-20 04:10:00 Leena Arias [facility] CBC W/PLT COUNT & AUTO 2020-01-20 04:10:00 Leland [facility] (CELLAVISION MANUAL DIFF) 2020-01-20 04:10:00 [facility] PREPARE LEUKO-REDUCED RBC 2020-01-19 23:54:00 Miguel Angel Kaylin [facility] URINALYSIS W/ MICROSCOPIC 2020-01-19 23:19:00 Leland [facility] SODIUM, RANDOM URINE 2020-01-19 23:19:[address] [facility] BLOOD CULTURE 2020-01-19 21:45:00 Galdino [facility] BLOOD CULTURE 2020-01-19 21:44:00 [facility] PMAOT-[id number] 2020-01-19 21:43:00 Kristofer Montgomery [facility] TRANSFUSION SERVICE REPORT 2020-01-19 18:01:08 Bozena Lopes [facility] - - SCAN Scanning [facility] R & L CATH / CORONARY 2020-01-19 16:30:[address] [facility] ANGIOS (+/- LV) [facility] BLOOD GAS, ARTERIAL 2020-01-19 15:44:00 Kristofer Montgomery [facility] CRYPTOCOCCAL ANTIGEN 2020-01-19 15:04:00 Kristofer Montgomery [facility] MUMPS ANTIBODY, IGG 2020-01-19 15:04:00 Kristofer Montgomery [facility] RUBELLA ANTIBODY, IGG 2020-01-19 15:04:00 Kristofer Montgomery [facility] RUBEOLA ANTIBODY IGG 2020-01-19 15:04:00 Kristofer Montgomery [facility] VARICELLA ZOSTER ANTIBODY, 2020-01-19 15:04:00 Kristofer Montgomery [facility] PROTHROMBIN TIME/INR 2020-01-19 11:00:00 [facility] US BREAST BILATERAL 2020-01-19 09:10:00 Kristofer Montgomery [facility] HEPATIC FUNCTION PANEL 2020-01-19 04:11:00 [facility] CALCIUM, IONIZED 2020-01-19 04:11:00 [facility] COMPREHENSIVE METABOLIC 2020-01-19 04:11:00 Leland [facility] PHOSPHORUS 2020-01-19 04:11:[address] [facility] B-TYPE NATRIURETIC FACTOR 2020-01-19 04:11:00 [facility] ALDOSTERONE 2020-01-19 04:11:00 [facility] RENIN, PLASMA 2020-01-19 04:11:00 [facility] METANEPHRINES 2020-01-19 04:11:00 [facility] MAGNESIUM 2020-01-19 04:11:00 [place] [facility] CBC W/PLT COUNT & AUTO 2020-01-19 04:11:00 L[place] [facility] DIFFERENTIAL [facility] CT ABDOMEN WITHOUT IV 2020-01-19 00:40:00 [facility] CONTRAST [facility] US RENAL COMPLETE 2020-01-19 00:20:00 [facility] PREPARE LEUKO-REDUCED 2020-01-18 23:54:00 [place] [facility] PLATELETS [facility] URINALYSIS W/ MICROSCOPIC 2020-01-18 20:49:00 [facility] SODIUM, RANDOM URINE 2020-01-18 20:49:00 [facility] PROTEIN, RANDOM URINE 2020-01-18 20:49:00 [facility] CREATININE, RANDOM URINE 2020-01-18 20:49:00 [facility] EOSINOPHIL SMEAR, URINE 2020-01-18 20:49:00 [facility] TRANSF[facility]ION SERVICE REPORT 2020-01-18 18:31:51 [facility] Scanning [facility] TRANSFUSE LEUKO-REDUCED RED 2020-01-18 13:21:26 Miguel Angel [facility] BLOOD CELLS [facility] NM MYOCARDIAL PERFUSION 2020-01-18 09:20:00 Brian Browning [facility] - PET/CT (REST & STRESS) Medical C enter TREADMILL 2020-01-18 08:57:35 Unknown, Hl7 [facility] TOLERANCE(NON-NUCLEAR Medical Ce nter TREADMILL) ECG 12-LEAD 2020-01-18 08:46:42 Unknown, Hl7 [facility] BASIC METABOLIC PANEL (7) 2020-01-18 06:10:00 [place] [facility] MAGNESIUM 2020-01-18 06:10:00 Juana [facility] T SPOT TB 2020-01-18 06:10:00 [facility] HEPATIC FUNCTION PANEL 2020-01-18 06:10:00 Roscoe [facility] CBC W/PLT COUNT & AUTO 2020-01-18 06:10:00 Juana [facility] (CELLAVISION MANUAL DIFF) 2020-01-18 06:10:00 [facility] ECG 12-LEAD 2020-01-17 11:05:03 Brian Browning [facility] REPORT OF PROCEDURE - 2020-01-17 09:11:05 [facility] REPORT OF PROCEDURE - 2020-01-17 08:39:23 Doris [facility] ENDOSCOPY [facility] TISSUE EXAM 2020-01-17 08:15:00 George [facility] TRANSFUSE LEUKO-REDUCED 2020-01-17 08:04:58 Juana [facility] UPPER ENDOSCOPY,BIOPSY 2020-01-17 07:55:00 George, [facility] COLONOSCOPY 2020-01-17 07:55:00 Doris [facility] PROTHROMBIN TIME/INR 2020-01-17 03:56:00 JacquelinMary [facility] BASIC METABOLIC PANEL (7) 2020-01-17 03:56:00 [facility] [facility] MAGNESIUM 2020-01-17 03:56:00 Juana [facility] CBC W/PLT COUNT & AUTO 2020-01-17 03:56:00 Juana [facility] (CELLAVISION MANUAL DIFF) 2020-01-17 03:56:00 [facility] TRANSFUSION SERVICE REPORT 2020-01-16 18:00:27 [facility] BLOOD CULTURE 2020-01-16 12:25:00 Shady Gonz[facility]les [facility] LACTATE DEHYDROGENASE (LDH) 2020-01-16 12:24:00 [facility] 2020-01-16 12:23:00 Iván [facility] BLOOD CULTURE 2020-01-16 11:25:00 Shady Gonz[facility]les [facility] HIV-1 ANTIGEN WITH HIV-1/2 2020-01-16 11:25:00 Shady Gonzáles [facility] VITAMIN B12 AND FOLATE 2020-01-16 11:25:00 Iván [facility] HAPTOGLOBIN 2020-01-16 11:25:00 [facility] ABDOMINAL WITH DOPPLER 2020-01-16 06:30:00 Shady Gonzáles [facility] PROTHROMBIN TIME/INR 2020-01-16 03:38:[address] [facility] HEPATIC FUNCTION PANEL 2020-01-16 03:38:00 Ramone [facility] BASIC METABOLIC PANEL (7) 2020-01-16 03:38:00 Arias, Leena CH I [facility] MAGNESIUM 2020-01-16 03:38:00 Leena Arias [facility] CBC W/PLT COUNT & AUTO 2020-01-16 03:38:00 Juana Le[facility] DRUG SCREEN, URINE, 2020-01-15 21:52:00 [facility] BLOOD TYPING, AUTOMATED 2020-01-15 18:16:00 Shady Gonzáles [facility] CT CHEST WITHOUT IV 2020-01-15 17:54:00 Shady Gonzáles [facility] XR CHEST 2 VIEWS 2020-01-15 16:57:00 EliecerShady davidson [facility] XR MANDIBLE 4 VIEWS MIN 2020-01-15 16:39:00 Shady Gonzáles [facility] VITAMIN D, 25-HYDROXY 2020-01-15 16:17:00 EliecerShady davidson [facility] COMPREHENSIVE METABOLIC 2020-01-15 16:17:[address] [facility] BILIRUBIN, DIRECT 2020-01-15 16:17:00 EliecerShady davidson [facility] CALCIUM, IONIZED 2020-01-15 16:17:00 EliecerShady davidson [facility] ZINC 2020-01-15 16:17:00 EliecerShady davidson [facility] ANTI-NUCLEAR ANTIBODY (REILLY) 2020-01-15 16:17:00 EliecerShady davidson [facility] ACTIN (SMOOTH MUSCLE) 2020-01-15 16:17:00 EliecerShady davidson [facility] - ANTIBODY, IGG [facility] MITOCHONDRIA M2 ANTIBODY 2020-01-15 16:17:00 Shady Gonzáles [facility] (IGG) [facility] IRON, TIBC, % SAT. (WITHOUT 2020-01-15 16:17:00 Shady Gonzáles [facility] FERRITIN) [facility] FERRITIN 2020-01-15 16:17:00 Shady Gonzáles [facility] TRANSFERRIN 2020-01-15 16:17:00 Shady Gonzáles [facility] YITNO-5-FJMHVWXMZJY\\, SERUM 2020-01-15 16:17:00 Shady Gonzáles [facility] CERULOPLASMIN 2020-01-15 16:17:00 Shady Gonzáles [facility] ALPHA FETOPROTEIN (AFP), 2020-01-15 16:17:00 Shady Gonzáles [facility] TUMOR MARKER [facility] CARCINOEMBRYONIC ANTIGEN 2020-01-15 16:17:00 Shady Gonzáles [facility] (CEA) [facility] CARBOHYDRATE ANTIGEN 19-9 2020-01-15 16:17:00 Shady Gonzáles [facility] (CA 19-9) [facility] HEMOGLOBIN A1C 2020-01-15 16:17:00 Shady Gonzáles [facility] TSH 2020-01-15 16:17:00 Shady Gonzáles [facility] T3 2020-01-15 16:17:00 Shady Gonzáles [facility] T4 2020-01-15 16:17:00 Shady Gonzáles [facility] ETHANOL 2020-01-15 16:17:00 Shady Gonzáles [facility] FIBRINOGEN 2020-01-15 16:17:00 Shady Gonzáles [facility] PROTHROMBIN TIME/INR 2020-01-15 16:17:00 Shady Gonzáles [facility] APTT 2020-01-15 16:17:00 Shady Gonzáles [facility] HEPATITIS A ANTIBODY, IGM 2020-01-15 16:17:00 [facility] SUR[facility] ANTIGEN 2020-01-15 16:17:00 EliecerShady davidson [facility] HEPATITIS B SURFACE 2020-01-15 16:17:[address] [facility] ANTIBODY [facility] HEPATITIS B CORE ANTIBODY, 2020-01-15 16:17:00 Shady Gonzáles [facility] TOTAL [facility] HEPATITIS B CORE ANTIBODY, 2020-01-15 16:17:00 EliecerShady davidson [facility] IGM [facility] HEPATITIS C ANTIBODY 2020-01-15 16:17:00 Shady Gonzáles [facility] RPR 2020-01-15 16:17:00 Shady Gonzáles [facility] CYTOMEGALOVIRUS ANTIBODY, 2020-01-15 16:17:00 Shady Gonzáles [facility] IGG [facility] CYTOMEGALOVIRUS ANTIBODY, 2020-01-15 16:17:00 Shady Gonzáles [facility] IGM [facility] EBV ANTIBODY, IGM 2020-01-15 16:17:00 Shady Gonzáles [facility] TYPE AND SCREEN, AUTOMATED 2020-01-15 16:17:00 Shady Gonzáles [facility] 2D ECHO W/ DOPPLER 2020-01-15 14:45:[address] [facility] (CW/PW/COLOR) [facility] CAROTID DOPPLER BILATERAL 2020-01-15 14:41:00 Shady Gonzáles [facility] SODIUM, RANDOM URINE 2020-01-15 12:46:[address] [facility] CREATININE, RANDOM URINE 2020-01-15 12:46:00 Graciela Stone [facility] I [facility] AMMONIA 2020-01-15 08:32:00 Graciela Stone [facility] HEPATITIS PANEL, ACUTE 2020-01-15 08:32:[address] [facility] BASIC METABOLIC PANEL (7) 2020-01-15 03:56:[address] [facility] PROTHROMBIN TIME/INR 2020-01-15 03:56:00 [facility] 2020-01-15 03:56:[address] [facility] MAGNESIUM 2020-01-15 03:56:00 Graciela Stone [facility] URIC ACID 2020-01-15 03:56:00 Shady Gonzáles [facility] GAMMA GLUTAMYL TRANSFERASE 2020-01-15 03:56:[address] [facility] (GGT) [facility] PHOSPHORUS 2020-01-15 03:56:00 Eliecer [facility] LIPID PANEL 2020-01-15 03:56:00 Eliecer [facility] CBC W/PLT COUNT & AUTO 2020-01-15 03:56:00 [facility]FF) 2020-01-15 03:56:[address] [facility] BASIC METABOLIC PANEL (7) 2020-01-14 21:59:[address] [facility] PROTHROMBIN TIME/INR 2020-01-14 21:59:00 Ramone [facility] HEPATIC FUNCTION PANEL 2020-01-14 21:59:[address] [facility] CBC W/PLT COUNT & AUTO 2020-01-14 21:59:00 [facility] SARS-COV2/RT-[facility] ([facility] & 2020-01-14 19:28:00 Tameka uHnter CH I [facility] - REF LABS) [facility] BASIC METABOLIC PANEL (7) 2020-01-03 14:34:00 Kadie Larry CH I [facility] HEPATIC FUNCTION PANEL 2020-01-03 14:34:[address] PROTHROMBIN TIME/INR 2020-01-03 14:34:00 LarryKadie mcdermott [facility] ALPHA FETOPROTEIN (AFP), 2020-01-03 14:34:00 LarryKadie mcdermott [facility] TUMOR [facility]ER [facility] CBC W/PLT COUNT & AUTO 2020-01-03 14:34:00 LarryKadie mcdermott [facility] DI[facility]ENTIAL [facility] Plan of Care Planned Activity Planned Date Details Comments Source Future Scheduled 2030-01-16 Screening for [facility] - Test 00:00:00 malignant neoplasm of Medica l Center colon (procedure) [code = 534381266] Future Scheduled 2023-01-14 Lipid panel [facility] - Test 00:00:00 (procedure) [code = Medical Center 67241873] Future Scheduled 2020-03-28 INFLUENZA VACCINE (#1) [facility]00 [code = INFLUENZA Medical Ce nter VACCINE (#1)] Future Scheduled 2020-02-26 INFLUENZA VACCINE [place] 00:[facility]:00 [code = INFLUENZA VACCINE] Future Scheduled 2019-07-28 Medicare IPPE (WELCOME [facility] Test 00:00:00 TO MEDICARE) [code = Medical Center Medicare IPPE (WELCOME TO MEDICARE)] Future Scheduled 2019 65+ PNEUMOCOCCAL [facility] [facility] 00:00:00 VACCINE (1 of 1 - PPSV23) [code = 65+ PNEUMOCOCCAL VACCINE (1 of 1 - PPSV23)] Future Scheduled 2019 PNEUMOCOCCAL 65+ Y[facility] Test 00:00:00 (2 of 2 - PPSV23) Medical Ce nter [code = PNEUMOCOCCAL 65+ YRS (2 of 2 - PPSV23)] Future Scheduled 2004 BREAST CANCER [facility] 00:00:00 SCREENING [code = BREAST CANCER SCREENING] Future Scheduled 2004 COLONOSCOPY [facility]CRE[facility]ING [place] [place] [facility] 00:00:00 [code = COLONOSCOPY SCREENING] Future Scheduled 2004 SHINGLES VACCINES (#1) [place] [facility] [facility] 00:00:00 [code = SHINGLES VACCINES (#1)] Future Scheduled 1975 Screening for [facility] Test 00:00:00 malignant neoplasm of cervix (procedure) [code = 436275553] Future Scheduled [address] [facility] Test 00:00:00 [facility] cervix (procedure) [code = 602894683] Future Scheduled [address] [facility] - Test 00:00:00 [facility] breast (procedure) [code = 716463178] Encounters Start End Encounter Admission Attending Care Care Encounter Source Date/Time Date/Time Type Type Clinicians Facility Department ID 2020-05-02 2020-05-02 [facility] [id number] 2020-04-19 2020-04-19 [facility] [id number] [facility] 2020-02-21 2020-02-21 [facility] [id number] 16:00:00 16:00:00 [facility] Medicine Medicine Outpati ent Clinics 2020-02-14 2020-02-14 [facility] [id number] 10:00:00 10:00:00 [facility] Medicine Medicine Outpati ent Clinics 2020-02-03 2020-02-03 [facility] [id number] 11[facility]48:00 11:48:00 [facility] Medicine Outpati ent Clinics 2020-01-13 2020-01-13 [facility] [id number] 14:40:00 14:40:00 [facility] Medicine Medicine Outpati ent Clinics 2020-01-03 2020-01-03 Transition [place] [id number] 00:00:00 00:00:00 of Care Aye [place] [id number] [place] [id number] 2019-12-28 2019-12-31 [facility] Yahir Borden [facility] [id number] 21:39:45 13:10:00 Encounter Jacklyn Lewis [id number] [place] [id number] [place] [id number] 2019-11-03 2019-11-03 [facility] [id number] 13:20:00 13:20:00 [facility] Outpati ent Clinics 2019-09-10 2019-09-10 [facility] [id number] 09:30:00 09:30:00 [facility] Outpati ent Clinics 2019-08-31 2019-08-31 [facility] [id number] 08:00:00 08:00:00 [facility] 2019-08-24 2019-08-24 [facility] [id number] 10:41:00 10:41:00 [facility] Outpati ent Clinics 2019-08-19 2019-08-19 [facility] [id number] 13:00:00 13:00:00 [facility] ent Clinics Results Test Description Test [...] OR = 60 L (test code = 5407893) mL/min/1.73m2 eGFR If Africn Am (test 25 > OR = 60 L code = 4266120) mL/min/1.73m2 BUN/Creatinine Ratio 14 6- 22 (calc) (test code = 4416046) Sodium (test code = 136 mmol/L 135-599 4315399) Potassium, Serum (test 4.6 mmol/L 3.5-5.3 code = 9385115) Chloride (test code = 106 mmol/L 98-865 3359707) Carbon Dioxide, Total 21 mmol/L 20-32 (test code = 6845180) Calcium, Serum (test 9.7 mg/dL 8.6-10.4 code = 9226204) Protein, Total, Serum 5.5 g/dL 6.1-8.1 L (test code = 20101202) Albumin (test code = 3.1 g/dL 3.6-5.1 L ) GLOBULIN (QUEST) (test 2.4 1.9- 3.7 g/dL code = 6361268) (calc) Albumin Globulin Ratio 1.3 1.0- 2.5 (calc) (test code = 1759-0) Bilirubin, Total (test 3.1 mg/dL 0.2-1.2 H code = 20101204) Alkaline Phosphatase, S 73 U/L 37-153 (test code = 6768-6) AST (SGOT) (test code = 29 U/L 10-35 20101208) ALT (SGPT) (test code = 9 U/L 6-) VALENTE (test code = VALENTE) FASTING:NOFASTING: NO RAC (test code = RAC) Performing Organization Information: Site ID: [facility] Name: [facility] Address: [address] [place] [phone] Director: Alonso Carrasco Lab Interpretation Abnormal (test code = 22784-7) [facility], [id number] 19:12:00 Test Item Value Reference Range Interpretation Comments Bilirubin, Total (test 3.1 mg/dL 0.2-1.2 H code = 20101204) Bilirubin, Direct (test 1.1 mg/dL < OR = 0.2 H code = 8805114) Bilirubin, Indirect 2.0 0.2- 1.2 mg/dL H (test code = 1635227) (calc) VALENTE (test code = VALENTE) FASTING:NOFASTING: NO RAC (test code = RAC) Performing Organization Information: Site ID: [facility]GA Name: [facility] Lab Address: [address] [place] [phone] Director: Alonso Carrasco Lab Interpretation Abnormal (test code = 30673-8) [facility] count + automated [id number] 19:12:00 Test Item Value Reference Interpretation Comments [...] MPV (test code = 10.9 fL 7.5-12.5 9501937) # Neutros (test 1863 1,500 - 7,800 [...] % Lymphs (test code 29.0 % = 9984649) % Monos (test code 9.4 % = ) % Eos (test code = 6.2 % 20200215) % Baso (test code = 0.6 % 20200216) Comment(s) (test Review of t he code = 3181125) peripheral s mear revealsdecrease d numbers of platelets.Revie w of peripheral smea r confirmsautomat ed results. VALENTE (test code = FASTING:NOFASTING VALENTE) : NO RAC (test code = Performing RAC) Organization Information: Site ID: [facility] Name: [facility] Lab Address: [address] [place] [address] Director: Alonso Carrasco Lab Interpretation Abnormal (test code = 59592-7) [facility] CenterProthrombin time/[id number] 19:12:00 Test Item Value Reference Range Interpretation Comments INR (test code = 1.2 H Reference R von 3808618) 0.9-1.1Moderate - intensity Warfarin Therap y 2.0-3.0Higher-i n tensity Warfari n Therapy 3.0-4.0 PT (test code = 12.3 9.0- 11.5 sec H For additio nal ) information, please refer tohttp://educat i on.[employer]/faq/FAQ 07 31(This link is being provided for informational/e d ucational purposes only.) VALENTE (test code = VALENTE) FASTING:NOFASTING: NO RAC (test code = RAC) Performing Organization Information: Site ID: [facility] Name: [facility] Lab Address: [address] [place] [address] Director: Alonso Carrasco Lab Interpretation Abnormal (test code = 09666-8) [facility] CenterPLATELET [id number] 18:02:00 Test Item Value Reference Range Interpretation Comments Platelet Estimate (test DECREASED ADEQUATE A code = 18415-6) VALENTE (test code = VALENTE) FASTING:NOFASTING: NO RAC (test code = RAC) Performing Organization Information: Site ID: [facility] Name: [facility] Lab Address: [address] [place] [phone] Director: Alonso Carrasco Lab Interpretation (test Abnormal code = 64391-3) [facility] CenterBILIRUBIN, [id number] 15:57:00 Test Item Value Reference Range Interpretation Comments BILIRUBIN DIRECT (BEAKER) (test 1.9 mg/dL 0.1-0.5 H code = 706) Inspector Electromechanical ID - BSCOMPREHENSIVE METABOLIC [id number] 15:57:00 Test Item Value Reference Range Interpretation [...] S NOT APPLICABLE FOR DIALYSIS PATIEN TS. Inspector Electromechanical ID - BSSpecimen moderately ictericAlpha fetoprotein (AFP), tumor marker 2020-04-11 15:41:00 Test Item Value Reference Range Interpretation Comments Alpha-Fetoprotein (test code <2.0 <10.0 ng/mL = 1834-1) VALENTE (test code = VALENTE) Inspector Electromechanical ID - BS Lab Interpretation (test Normal code = 37539-0) [facility] Center[facility] FETOPROTEIN (AFP), TUMOR [id number] 15:41:00 Test Item Value Reference Range Interpretation Comments ALPHA-FETOPROTEIN (BEAKER) (test code < ng/mL <10.0 = 1094) Inspector Electromechanical ID - BSRAD, BONE DENSITY [id number] 13:34:00Referring: Dr. Rowdy Zhang for Exam:->liver transplant waiting listFINAL REPORT Bone density study, 04/11/2020 Clinical History: Screening Bone mineral density measurementLumbar spine0.866 gm/tc8Oqwdwyn neck0.714 gm/cm2 Standard deviation fromyoung adult population [...] one or more fragility fractures Signed: Jorge Brooksort Verified Date/Time: 04/11/2020 13:34:32 Reading Location: [address] Reading Room XR dxa bone density [id number] 13:34:00 Interface, External Ris In - 04/11/2020 1:36 PM CDTFINAL REPORT Bone densitystudy, 04/11/2020 Clinical History: Screening Bone mineral density measurementLumbar spine0.866 gm/fr0Znxzhmh neck0.714 gm/cm2 Standard deviation from young adult [...] MDReport Verified Date/Time: 04/11/2020 13:34:32 Reading Location: [address] Reading [facility][id number] 13:02:00 Test Item Value Reference Range Interpretation [...] heart valves.CBC with platelet count + automated [id number] 12:52:00 Test Item Value Reference Range Interpretation [...] K/CU MM L MPV (test code = 32933-2) 10.4 fL 9.4-12.3 nRBC (test code = [...] 2801) Lab Interpretation (test code = Abnormal 40398-7) [facility] W/PLT COUNT & AUTO [id number] 12:52:00 Test Item Value Reference Range Interpretation [...] (BEAKER) (test code = 2801) MISCELLANEOUS LAB [id number] 12:14:00 Test Item Value Reference Range Interpretation Comments SCAN RESULT (test code = 3135778) Miscellaneous lab [id number] 12:14:00Scan ResultQUEST NON-INTERFACED LABCHI [facility]2020-07-21 13:17:00 Test Item Value Reference Range Interpretation Comments Magnesium (test code = 1.8 mg/dL 1.6-2.6 24183-2) VALENTE (test code = VALENTE) Inspector Electromechanical ID - LM Lab Interpretation (test Normal code = 69268-1) [facility]2020-07-21 13:17:00 Test Item Value Reference Range Interpretation Comments MAGNESIUM (BEAKER) (test code = 1.8 mg/dL 1.6-2.6 627) Inspector Electromechanical ID - LMCOMPREHENSIVE METABOLIC [id number] 13:17:00 Test Item Value Reference Range Interpretation [...] S NOT APPLICABLE FOR DIALYSIS PATIEN TS. Inspector Electromechanical ID - LMSpecimen moderately ictericBILIRUBIN, [id number] 13:17:00 Test Item Value Reference Range Interpretation Comments BILIRUBIN DIRECT (BEAKER) (test 2.5 mg/dL 0.1-0.5 H code = 706) Inspector Electromechanical ID - LMPROTHROMBIN TIME/[id number] 13:05:00 Test Item Value Reference Range Interpretation [...] mechanical heart valves.CBC W/PLT COUNT & AUTO [id number] 12:59:00 Test Item Value Reference Range Interpretation [...] 0-1 PERCENT (BEAKER) (test code = 2801) [id number] 10:36:00 Test Item Value Reference Interpretation Comments Range Metanephrine (test 46 pg/mL < OR = 57 This umshtaq t was developed code = 9262027) and its anal ytical performance characteristics havebeen determined by [employer] [facility].It h as not been cleared or appr jean-claude by FDA. This assay has been validatedpursua nt to the CLIA regulation s and is used for clinic al purposes. Normetanephrine 213 pg/mL < OR = 148 H This test w as developed (test code = and its analyti steven 4891530) performance characteristics havebeen determined by [employer] [facility].It h as not been cleared or appr jean-claude by FDA. This assay has been validatedpursua nt to the CLIA regulation s and is used for clinic al purposes. Total Metanephrine 259 pg/mL < OR = 205 H Elevatio ns > 4-fold upper (test code = reference range : strongly 7458176) suggestive of apheochromocyto ma(1). Elevations >1 - 4-fold upper reference range:significa nt but not diagnostic, may be due to medications or stress. Suggestrunning 24 hr urine fractionated me tanephrines and serum Chrom ogranin A forconfirmation . Reference: (1) [place]-Schim dg A et al, Plasma Social Group Worker mogranin A or Urine FractionatedMet anephrines Follow-Up Testi ng Improves the Diagnostic Accuracy of PlasmaFractiona madai Metanephrines f or Pheochromocytom a. The Journal of ClinicalEndocri nology and Metabolism 93 ( 1),91-95, 2007. For addit ional information, pl ease refer tohttp://educat ion.iAmplify.[place] [employer]/f aq/MetFract Free(This link is being provided for informational/e ducational purposes only.) This test was developed a nd its analytical perf ormance characteristics havebeen determined by [employer] [facility].It h as not been cleared or appr jean-claude by FDA. This assay has been validatedpursua nt to the CLIA regulation s and is used for clinic al purposes. VALENTE (test code = Performing Lab VALENTE) EZ [facility] [address] [place] [address] Kerry Encarnacion MD, PhD, AMINA Lab Interpretation Abnormal (test code = 31943-5) [facility] CenterCatecholamines, Fractionated, 24hr [id number] 11:55:00 Test Item Value Reference Interpretation Comments Range TOTAL VOLUME (test 1000 mL code = 9893547) Epinephrine,24 Hr <2 2- 24 mcg/24 h L Result b elow clinical Ur (test code = reportable r von for ) this analyte, w hich is 2 mcg/L.Repo rted result was calc ulated using 2 mcg/L. This test was develo ped and its analyti steven performance characteristics havebeen determ ined by [facility] .It has not been cl eared or approved by FDA. This assay has been validatedpursua nt to the CLIA regula tions and is used for clinical purpos es. Norepinephrine 9 15- 100 mcg/24 L This test was (test code = h developed and i ts 3962411) analytical performance characteristics havebeen determ ined by [facility] .It has not been cl eared or approved by FDA. This assay has been validatedpursua nt to the CLIA regula tions and is used for clinical purpos es. Calculated Total 9 26- 121 mcg/24 L This mushtaq t was E+Ne (test code = h developed and its 20190907) analytical performance characteristics havebeen determ ined by [facility] .It has not been cl eared [...] steven performance characteristics havebeen determ ined by [facility] .It has not been cl eared or approved by FDA. This assay has been validatedpursua nt to the [place] regula [facility] and is used for clinical purpos es. Creatinine,24 Hr 0.88 0.50- 2.15 Urin (test code = g/24 h ) VALENTE (test code = Performing Lab VALENTE) EZ [facility] [address] [place] [address] Kerry Encarnacion MD, PhD, AMINA Lab Interpretation Abnormal (test code = 36473-6) [facility] CenterMISCELLANEOUS LAB [id number] 12:33:00 Test Item Value Reference Range Interpretation Comments SCAN RESULT (test code = 9548374) [id number] 16:28:00 Test Item Value Reference Range Interpretation Comments Lab Interpretation (test code = Normal 74451-5) [facility] CenterMetanephrines, 24 hour [id number] 12:57:00 Test Item Value Reference Interpretation Comments Range TOTAL VOLUME (test 1000 mL code = 0899065) Metanephrine (test 205 90- 315 This mushtaq t was code = 6063154) mcg/24 h developed an d its analytical perf ormance characteristics havebeen determ ined by [facility] .It has not been cleare d or approved by FDA . This assay has been validatedpursua nt to the CLIA regula [facility] and is used for clinical purpos es. Normetanephrine 657 122- 676 This test w as (test code = mcg/24 h developed and i ts 1322767) analytical perf ormance characteristics havebeen determ ined by [facility] .It has not been cleare d or approved by FDA . This assay has been validatedpursua nt to the [place] regula [facility] and is used for clinical purpos [...] perf ormance characteristics havebeen determ ined by [facility] .It has not been cleare d or approved by FDA . This assay has been validatedpursua nt to the [place] regula [facility] and is used for clinical purpos es. VALENTE (test code = Performing Lab VALENTE) EZ [facility] [address] [place] [address] Kerry Encarnacion MD, PhD, AMINA Lab Interpretation Abnormal (test code = 40918-5) [facility] CenterCalcium, [id number] 05:42:00 Test Item Value Reference Range Interpretation Comments Calcium, Ion (test code = 1993-) 1.11 mmol/L 1.12-1.27 L pH, Blood (test code = 18329-7) 7.41 Lab Interpretation (test code = Abnormal 99701-5) [facility] CenterCALCIUM, [id number] 05:42:00 Test Item Value Reference Range Interpretation Comments CALCIUM IONIZED (BEAKER) (test 1.11 mmol/L 1.12-1.27 L code = 698) PH, BLOOD (BEAKER) (test code = 7.41 1810) COMPREHENSIVE METABOLIC [id number] 04:57:00 Test Item Value Reference Range Interpretation [...] S NOT APPLICABLE FOR DIALYSIS PATIEN TS. Inspector Electromechanical ID - BSSpecimen moderately ictericHepatic function [id number] 04:53:00 Test Item Value Reference Range Interpretation Comments Protein, Total (test code 5.7 6.0- 8.3 gm/dL L = 2885-2) Albumin (test code = 3.4 g/dL 3.5-5 L 66332-3) Total Bilirubin (test 6.9 mg/dL 0.2-1.2 H code = 1974-2) Bilirubin, Direct (test 2.2 mg/dL 0.1-0.5 H code = 1967-7) Alkaline Phosphatase 58 U/L 40-150 (test code = 6768-6) AST (test code = 1920-8) 36 U/L 5-34 H ALT (test code = 1742-6) 13 U/L 6-55 VALENTE (test code = VALENTE) Inspector Electromechanical ID - BSSpecimen moderately icteric Lab Interpretation (test Abnormal code = 17700-4) [facility] CenterPhosphorus2020-07-01 04:53:00 Test Item Value Reference Range Interpretation Comments Phosphorus (test code = 3.2 mg/dL 2.3-4.7 2777-1) VALENTE (test code = VALENTE) Inspector Electromechanical ID - BS Lab Interpretation (test Normal code = 44940-3) [facility] CenterPHOSPHORUS2020-07-01 04:53:00 Test Item Value Reference Range Interpretation Comments PHOSPHORUS (BEAKER) (test code = 3.2 mg/dL 2.3-4.7 604) Inspector Electromechanical ID - [id number] 04:53:00 Test Item Value Reference Range Interpretation Comments MAGNESIUM (BEAKER) (test code = 1.7 mg/dL 1.6-2.6 627) Inspector Electromechanical ID - BSHEPATIC FUNCTION [id number] 04:53:00 Test Item Value Reference Range Interpretation [...] (test code = 13 U/L 6-55 347) Inspector Electromechanical ID - BSSpecimen moderately ictericCBC W/PLT COUNT & AUTO [id number] 04:42:00 Test Item Value Reference Range Interpretation [...] PERCENT (BEAKER) (test code = 2801) PROTHROMBIN TIME/[id number] 04:36:00 Test Item Value Reference Range Interpretation [...] (test No organisms seen code = 1123) [facility] CenterBODY FLUID CULTURE + GRAM [id number] 12:05:00 Test Item Value Reference Range Interpretation Comments CULTURE (BEAKER) (test No growth code = 1095) GRAM STAIN RESULT <1+ White blood cells (BEAKER) (test code = seen 1123) GRAM STAIN RESULT No organisms seen (BEAKER) (test code = 47201) Manual [id number] 07:35:00 Test Item Value Reference Range Interpretation [...] Poikilocytes (test code = 2+ moderate 966) [place] Cells (test code = 2+ moderate 474) Artifact (test code = Present 3432) Platelet Conc (test code Decreased = 3438) VALENTE (test code = VALENTE) Inspector Electromechanical ID - 6000Operator ID - Maria Del Carmen Davidsonwest comments: Slide comments: Lab Interpretation (test Abnormal code = 23700-1) [facility] W/PLT COUNT & AUTO [id number] 07:35:00 Test Item Value Reference Range Interpretation [...] CONCENTRATION Decreased (CELLAVISION)(BEAKER) (test code = 3438) Inspector Electromechanical ID - 6000Operator ID - Maria Del Carmen Quintana comments: Slide comments:Basic Metabolic [id number] 06:24:00 Test Item Value Reference Range Interpretation Comments Sodium (test code = 140 meq/L 217-827 8500-2) Potassium (test code 3.4 meq/L 3.5-5.1 L = 2823-3) Chloride (test code = 105 meq/L 98-107 2075-0) CO2 (test code = 25 meq/L 22-29 2028-9) BUN (test code = 31 mg/dL 7-21 H 3094-0) Creatinine (test code 2.35 mg/dL 0.57-1.25 H = 2160-0) Glucose (test code = 108 mg/dL 70-105 H 2345-7) Calcium (test code = 8.7 mg/dL 8.4-10.2 91675-8) EGFR (test code = 21 mL/min/1.73 [place] [address]-6) NOT ACCURATE CREATININE CLEARANCE IN PREDICTING GLOMERULAR FILTRATION RATE . ESTIMATED GFR I S NOT APPLICABLE FOR DIALYSIS PATIENTS. VALENTE (test code = VALENTE) Inspector Electromechanical MABLE Jane moderately icteric Lab Interpretation Abnormal (test code = 71959-6) [facility] METABOLIC [id number] 06:24:00 Test Item Value Reference Range Interpretation [...] S NOT APPLICABLE FOR DIALYSIS PATIEN TS. Inspector Electromechanical MABLE Jane moderately ictericHEPATIC FUNCTION [id number] 06:23:00 Test Item Value Reference Range Interpretation [...] (test code = 13 U/L 6-55 347) Inspector Electromechanical ID - MITCH Jane moderately [id number] 06:22:00 Test Item Value Reference Range Interpretation Comments MAGNESIUM (BEAKER) (test code = 1.8 mg/dL 1.6-2.6 627) Inspector Electromechanical ID - MITCH LPROTHROMBIN TIME/[id number] 04:22:00 Test Item Value Reference Range Interpretation [...] = No growth in 5 days 6463-4) [facility] CenterBLOOD [id number] 23:00:00 Test Item Value Reference Range Interpretation Comments CULTURE (BEAKER) (test No growth in 5 days code = 1095) BLOOD [id number] 23:00:00 Test Item Value Reference Range Interpretation Comments CULTURE (BEAKER) (test No growth in 5 days code = 1095) DLCO (single breath diffusion)2020-01-24 10:41:00Epifanio Giles RRT, WINDOW TRIMMER APPRENTICE 01/24/2020 10:52 [facility] PFT CHARTING REPORT Infection Control/Hand Hygiene procedures followed throughout the encounter with patient: YesPatient Identification Method: Patient name verified on armband, and Medical record on armband, Is the order complete?: Yes Account ID#: [id number] Name: Cici Calderon Birthdate: 1955 Age: 64 [...] and patient released from the lab without adverseoutcome.[facility] CenterPulmonary Funct Lab [id number] 10:41:00Epifanio Giles RRT, WINDOW TRIMMER APPRENTICE 01/24/2020 10:52 [facility] PFT CHARTING REPORT Infection Control/Hand Hygiene procedures followed throughout the encounter with patient: YesPatient Identification Method: Patient name verified on armband, and Medical record on armband, Is the order complete?: Yes Account ID#: [id number] Name: Cici Calderon Birthdate: 1955 Age: 64 [...] and patient released from the lab without adverseoutcome.[facility] CenterLung [id number] 10:41:00Epifanio Giles, HARDWOOD FLOOR REFINISHER, WINDOW TRIMMER APPRENTICE 01/24/2020 10:52 [facility] PFT CHARTING REPORT Infection Control/Hand Hyg iene procedures followed throughout the encounter with patient: YesPatient Identification Method: Patient name verified on armband, and Medical record on armband, Is the order complete?: Yes Account ID#: [id number] Name: Cici Calderon Birthdate: 1955 Age: 64 [...] and patient released from the lab without adverseoutcome.[facility]6 MINUTE WALK(FOR LUNG TRANSPLANT ONLY)2020-01-24 10:20:00Janina Meehan, JUVENAL, WINDOW TRIMMER APPRENTICE 01/24/2020 2:39 [facility] PFT CHARTING REPORT Infection Control/Hand Hygiene procedures followed throughout the encounter with patient: YesPatient Identification Method: Patient name verified on armband, and Medical record on armband, Is the order complete?: Account ID#: [id number] Name: Cici Calderon Birthdate: 1 09/08/1954 Age: [...] patient released from the lab without adverse outcome.[facility] CenterU/S, [id number] 09:43:00 Referring: Dr. Rowdy Christie to be ordered:->Body Fluid Culture (w/Gram Stain, C\\T\\S)Labs marko ordered:->Cell CountReason for exam:->Acute Kidney Injury - rule out SBP - can remove volume of up to 4-5 L (given ANDERS)Should this be performed at the bedside?->YesFINAL REPORT Ultrasound guided paracentesis Clinical History: Ascites. Sedation: None. Smoking Pipe Driller And Threader: Christine Ward PA-C Supervising Physician: Natan Chisholm MD Hardwood Floor Refinisher: None. Estimated Blood Loss: < 1 mL. [...] anesthesia was achieved with lidocaine, a 5 Iraqi one-step catheter was advanced into theperitoneal cavity under ultrasound guidance. After completion of drainage, the catheter was removed.There was no evidence of complication. Impression:Successful ultrasound guided paracentesis. Signed:Natan Chisholm MDReport Verified Date/Time: 01/24/2020 09:43:05 Reading Location: [address] Ultrasound Reading Room US [id number] 09:43:00Interface, External Ris In - 01/24/2020 9:45 AM CDTFINAL REPORT Ultrasound guided paracentesis Clinical History: Ascites. Sedation: None. Smoking Pipe Driller And Threader: Christine Ward PA-C Supervising Physician: Natan Chisholm MD Hardwood Floor Refinisher: None. Estimated Blood Loss: < 1 mL. [...] anesthesia was achieved with lidocaine, a 5 Iraqi one-step catheter was advanced into the peritoneal cavity under ultrasound guidance. After completion of drainage, the catheter was removed. There was no evidence of complication. Impression:Successful ultrasound guided paracentesis. Signed: Natan Chisholm MDReport Verified Date/Time: 12/27 09:43:05 Reading Location: [address] Ultrasound [facility]OLIC [id number] 06:18:00 Test Item Value Reference Range Interpretation [...] S NOT APPLICABLE FOR DIALYSIS PATIEN TS. Inspector Electromechanical ID - MIKEDORIAN KRISHpecimen moderately [id number] 05:38:00 Test Item Value Reference Range Interpretation Comments PHOSPHORUS (BEAKER) (test code = 2.8 mg/dL 2.3-4.7 604) Inspector Electromechanical ID - MIKEDORIAN [id number] 05:38:00 Test Item Value Reference Range Interpretation Comments MAGNESIUM (BEAKER) (test code = 1.8 mg/dL 1.6-2.6 627) Inspector Electromechanical ID - MITCH LHEPATIC FUNCTION [id number] 05:38:00 Test Item Value Reference Range Interpretation [...] (test code = 11 U/L 6-55 347) Inspector Electromechanical ID - MITCH RUTHERFORDpecimen moderately ictericCALCIUM, [id number] 04:56:00 Test Item Value Reference Range Interpretation Comments CALCIUM IONIZED (BEAKER) (test 1.09 mmol/L 1.12-1.27 L code = 698) PH, BLOOD (BEAKER) (test code = 7.43 1810) PROTHROMBIN TIME/[id number] 04:48:00 Test Item Value Reference Range Interpretation [...] mechanical heart valves.CBC W/PLT COUNT & AUTO [id number] 04:36:00 Test Item Value Reference Range Interpretation [...] (BEAKER) (test code = 2801) Prepare Leuko-Red [id number] 23:54:00 Test Item Value Reference Range Interpretation Comments CROSSMATCH (test code = 2264) COMPATIBLE Unit ABO (test code = A Pos 3496578) UNIT NUMBER (test code = [id number] 934-0) Status (test code = 8670607) TX_TIMEINCBARROW NEUROLOGICAL INSTITUTET Blood Bank Product (test code RED BLOOD CELLS = 2263) PRODUCT CODE (test code = C4218Z76 933-2) [facility] CenterRubeola antibody [id number] 18:06:00 Test Item Value Reference Range Interpretation Comments Rubeola Ab, 235 AU/mL REFERENCE RANGE : Igg (test code <13.50 AU/mL = 98416-7) AU/mL Interpretation ==== <13.50 Negative 13.50-16.49 Equivocal >16.49 Positive A posi tive result indicate s that the patient hasantibody to measles virus. It does notdifferentiat e between an acti ve or past infection. The clinical diagno sis must be interpr eted inconjunction w ith clinical signs and symptoms ofthe patient. For additional information, pl ease refer tohttp://educat ion.[facility] stDiagnostics.c om/faq/ UBA930(This rosa k is being provided for informational/e ducatio nal purposes on ly.) VALENTE (test code Performing Lab = VALENTE) *QDID [facility] [address] [place] [address] Sudhakar Hargrove MD [facility] CenterMitochondria M2 Antibody (IgG)2020-01-23 13:50:00 Test Item Value Reference Range Interpretation Comments Mitochondria M2 Ab <20.0 See Note: U Reference (test code = Range:NEGATIVE: ) < OR = 20.0EQUIVOCAL: 20.1-24.9POSITI V E: > OR = 25.0 VALENTE (test code = Performing Lab VALENTE) EZ [facility] [address] [place] [address] Kerry Encarnacion MD, PhD, AMINA [facility] CenterMumps antibody, [id number] 13:38:00 Test Item Value Reference Range Interpretation [...] (test Performing Lab code = VALENTE) *QDID [facility] [address] [place] [address] Sudhakar Hargrove MD [facility] CenterCBC W/PLT COUNT & AUTO [id number] 12:26:00 Test Item Value Reference Range Interpretation [...] CONCENTRATION Decreased (CELLAVISION)(BEAKER) (test code = 3438) Inspector Electromechanical ID - 6000Operator ID - Charo Jordan comments: Slide comments: BASIC METABOLIC [id number] 07:18:00 Test Item Value Reference Range Interpretation [...] S NOT APPLICABLE FOR DIALYSIS PATIEN TS. Inspector Electromechanical ID - MITCH LSpecimen moderately [id number] 07:17:00 Test Item Value Reference Range Interpretation Comments MAGNESIUM (BEAKER) 1.6 mg/dL 1.6-2.6 Specimen slightly (test code = 627) hemolyzed Inspector Electromechanical ID - MITCH [id number] 07:17:00 Test Item Value Reference Range Interpretation Comments PHOSPHORUS (BEAKER) 2.4 mg/dL 2.3-4.7 Specimen slightly (test code = 604) hemolyzed Inspector Electromechanical ID - MITCH LHEPATIC FUNCTION [id number] 07:17:00 Test Item Value Reference Range Interpretation [...] Specimen slightly (test code = 347) hemolyzed Inspector Electromechanical ID - MITCH LSpecimen moderately ictericB-type Natriuretic Factor (BNP) 2020-01-23 06:55:00 Test Item Value Reference Range Interpretation Comments BNP (test code = 68635-0) 2179 pg/mL 0-100 H VALENTE (test code = VALENTE) Inspector Electromechanical ID - MITCH [place] Lab Interpretation (test Abnormal code = 21552-1) [facility] CenterB-TYPE NATRIURETIC FACTOR (BNP)2020-01-23 06:55:00 Test Item Value Reference Range Interpretation Comments B-TYPE NATRIURETIC PEPTIDE 2179 pg/mL 0-100 H (BEAKER) (test code = 700) Inspector Electromechanical ID Mercedes MEYER LCALCIUM, [id number] 06:31:00 Test Item Value Reference Range Interpretation Comments CALCIUM IONIZED (BEAKER) (test 1.07 mmol/L 1.12-1.27 L code = 698) PH, BLOOD (BEAKER) (test code = 7.45 1810) PROTHROMBIN [id number] 06:00:00 Test Item Value Reference Range Interpretation [...] for patients wiht mechanical heart valves.Prepare Leuko-Red [id number] 23:54:00 Test Item Value Reference Range Interpretation Comments Unit ABO (test code = 8710448) O Pos UNIT NUMBER (test code = [id number] 934-0) Status (test code = 1208264) TX_TIMEINCHART Blood Bank Product (test code PLATELETS = 2263) PRODUCT CODE (test code = T4990J28 933-2) [facility] CenterCBC W/PLT COUNT & AUTO [id number] 10:35:00 Test Item Value Reference Range Interpretation [...] CONCENTRATION Decreased (CELLAVISION)(BEAKER) (test code = 3438) Inspector Electromechanical ID - 6000Operator ID - Lizett OverholtUser comments: Slide comments: [id number] 10:05:00 Test Item Value Reference Range Interpretation Comments Cortisol, Total (test code 1.6 ug/dL 3.7-19.4 L = 2755) VALENTE (test code = VALENTE) Inspector Electromechanical ID - PIAYA L Lab Interpretation (test Abnormal code = 29359-9) [facility] CenterCORTISOL2020-06-27 10:05:00 Test Item Value Reference Range Interpretation Comments CORTISOL, TOTAL (BEAKER) (test code 1.6 ug/dL 3.7-19.4 L = 2755) Inspector Electromechanical ID - PIAYA LDirect AHG (KRISTI)/Direct [id number] 07:49:00 Test Item Value Reference Range Interpretation Comments Direct AHG-IGG (test code = 1006-6) NEGATIVE Direct AHG-C3B, C3D (test code = NEGATVIE 1003-3) [facility] CenterABORH, [id number] 07:37:00 Test Item Value Reference Range Interpretation Comments ABO Grouping (test code = 2588) A Rh Factor (test code = 2589) POS [facility] CenterCALCIUM, [id number] 06:31:00 Test Item Value Reference Range Interpretation Comments CALCIUM IONIZED (BEAKER) (test 1.10 mmol/L 1.12-1.27 L code = 698) PH, BLOOD (BEAKER) (test code = 7.44 1810) BASIC METABOLIC [id number] 06:20:00 Test Item Value Reference Range Interpretation [...] S NOT APPLICABLE FOR DIALYSIS PATIEN TS. Inspector Electromechanical ID - PIAYA LSpecimen moderately [id number] 06:12:00 Test Item Value Reference Range Interpretation Comments MAGNESIUM (BEAKER) (test code = 1.7 mg/dL 1.6-2.6 627) Inspector Electromechanical ID - PIAYA LHEPATIC FUNCTION [id number] 06:12:00 Test Item Value Reference Range Interpretation [...] (test code = 10 U/L 6-55 347) Inspector Electromechanical ID - MITCH Goetzimeyahaira moderately ictericPROTHROMBIN TIME/[id number] 05:48:00 Test Item Value Reference Range Interpretation [...] is2.5-3.5 for patients wiht mechanical heart valves.Renin, [id number] 22:50:00 Test Item Value Reference Range Interpretation Comments PRA,LC/MS/MS 1.51 ng/mL/h 0.25-5.82 This test was developed (test code = and its analyti steven 8076284) performance characteristics havebeen determined by [facility].It h as not been cleared or approved by FDA. This as say has been validatedp ursuant to the CLIA reg ulations and is used for clinical purposes. VALENTE (test Performing Lab code = VALENTE) EZ [facility] [address] [place] [address] Kerry Encarnacion MD, PhD, AMINA [facility] CenterBody fluid cell count with [id number] 18:33:00 Test Item Value Reference Range Interpretation Comments Appearance (test code = 9335-1) Hazy Clear A Color (test code = 6824-7) Cele Colorless, Straw A RBCs (test code = 00305-4) 4000 <=1 /cu mm H Adjusted WBC Count (test code = 86 <=5 /cu mm H 55475-5) Lining Cells (test code = 1 <=1 /cu mm 96856-6) % Segs (test code = 07162-8) 7 % % Lymphs (test code = 86105-6) 83 % % Monos (test code = 35849-3) 10 % % Eos (test code = 81960-0) 0 % % Baso (test code = 34405-5) 0 % Container Body Fluid (test code Sterile Vial = 2873) Lab Interpretation (test code = Abnormal 53724-0) [facility] CenterBODY FLUID CELL COUNT WITH [id number] 18:33:00 Test Item Value Reference Range Interpretation Comments APPEARANCE FLUID (BEAKER) (test Hazy Clear A code = 510) COLOR FLUID (BEAKER) (test code Ecle Colorless, Straw A = 511) RBC FLUID [...] = 2873) Peripheral Blood Smear - Hold [id number] 15:19:00 Test Item Value Reference Range Interpretation Comments Peripheral Smear Save (test code = saved 1815) [facility] CenterPERIPHERAL BLOOD SMEAR - HOLD [id number] 15:19:00 Test Item Value Reference Range Interpretation Comments PERIPHERAL SMEAR SAVE (BEAKER) (test saved code = 1815) [id number] 14:41:00 Test Item Value Reference Interpretation Comments Range Aldosterone (test 22 ng/dL Adult Ref erence code = 0899134) Ranges for Aldosterone: Upright 8:00-10 :00 am < or = 28 ng/ dL Upright 4:00-6: 00 pm < or = 21 ng/ dL Supine 8:00-10 :00 am 3-16 ng/dL Th is test was developed a nd its analytical perf ormance characteristics havebeen determ ined by [facility] .It has not been cleare d or approved by FDA . This assay has been validatedpursua nt to the CLIA regula tions and is used for clinical purpos es. VALENTE (test code = Performing Lab VALENTE) EZ [facility] [address] [place] [address] Kerry Encarnacion MD, PhD, AMINA [facility] CenterT Spot [id number] 13:05:00 Test Item Value Reference Range Interpretation Comments T-Spot TB (test code = 52292-6) Negative Neg Ctrl Spot Count (test code = 0 02832-1) Panel A Spot (test code = 42780-5) 0 Panel B Spot (test code = 48494-2) [address] (test code = 0 90473-9) Scan Result (test code = 6521023) [facility] CenterT SPOT [id number] 13:05:00 Test Item Value Reference Range Interpretation Comments T-SPOT TB (BEAKER) (test code = Negative 1683) NEG CONTROL SPOT COUNT (BEAKER) 0 (test code = 1684) PANEL A SPOT (BEAKER) (test code = 0 1685) PANEL B SPOT (BEAKER) (test code = 0 1686) POS CONTROL SPOT CT (BEAKER) (test 0 code = 1687) SCAN RESULT (test code = 0292184) BLOOD [id number] 13:00:00 Test Item Value Reference Range Interpretation Comments CULTURE (BEAKER) (test No growth in 5 days code = 1095) BLOOD [id number] 12:00:00 Test Item Value Reference Range Interpretation Comments CULTURE (BEAKER) (test No growth in 5 days code = 1095) [id number] 10:25:00 Test Item Value Reference Range Interpretation Comments CORTISOL, TOTAL (BEAKER) (test code 5.1 ug/dL 3.7-19.4 = 2755) Inspector Electromechanical ID - TUAN CCOMPREHENSIVE METABOLIC [id number] 10:23:00 Test Item Value Reference Range Interpretation [...] S NOT APPLICABLE FOR DIALYSIS PATIEN TS. Inspector Electromechanical ID - JUL CSpecimen moderately ictericVaricella zoster antibody, IgG 2020-01-21 10:15:00 Test Item Value Reference Range Interpretation Comments Varicella IgG (test 3.6 code = 44029-2) VALENTE (test code = VALENTE) VARICELLA ZOSTER RESULT INTERPRETATIONS: <=0.8 Al Nonreactive: Presumed non-immune to VZV 0.9-1.0 Al Equivocal >=1.1 Al Reactive: Presumed immune to VZV [facility] [facility] CenterRubella antibody, [id number] 10:15:00 Test Item Value Reference Range Interpretation Comments Rubella IgG Quant (test 127.0 <8.0 IU/mL H code = 8014-3) VALENTE (test code = VALENTE) Rubella IgG Result Interpretation: </= 7.0 IU/mL Negative - Presumed non-immune 8.0 - 9.9 IU/mL Equivocal >= 10.0 IU/mL Positive - Presumed immune Lab Interpretation (test Abnormal code = 88530-4) [facility] CenterRUBELLA ANTIBODY, [id number] 10:15:00 Test Item Value Reference Range Interpretation Comments RUBELLA IGG QUANTITATION (BEAKER) 127.0 IU/mL <8.0 H (test code = 572) Rubella IgG Result Interpretation: </= 7.0 IU/mL Negative - Presumed non- immune 8.0 - 9.9 IU/mL Equivocal >= 10.0 IU/mL Positive - Presumed immune VARICELLA ZOSTER ANTIBODY, [id number] 10:15:00 Test Item Value Reference Range Interpretation Comments VARICELLA ZOSTER IGG (AL) (BEAKER) 3.6 (test code = 3197) VARICELLA ZOSTER RESULT INTERPRETATIONS: <=0.8 Al Nonreactive: Presumed non-immune to VZV 0.9-1.0 Al Equivocal >=1.1 Al Reactive: Presumed immune to VZVReticulocyte [id number] 10:12:00 Test Item Value Reference Range Interpretation Comments % Retic (test code = 5.3 % 0.5-1.7 H 13605-9) VALENTE (test code = VALENTE) Inspector Electromechanical ID - 6000 Lab Interpretation (test Abnormal code = 52600-8) [facility] CenterRETICULOCYTE [id number] 10:12:00 Test Item Value Reference Range Interpretation Comments RETICULOCYTE COUNT PCT (BEAKER) (test 5.3 % 0.5-1.7 H code = 575) Inspector Electromechanical ID - [id number] 10:06:00 Test Item Value Reference Range Interpretation Comments PHOSPHORUS (BEAKER) (test code = 3.1 mg/dL 2.3-4.7 604) Inspector Electromechanical ID - TUAN [id number] 10:06:00 Test Item Value Reference Range Interpretation Comments MAGNESIUM (BEAKER) (test code = 1.7 mg/dL 1.6-2.6 627) Inspector Electromechanical ID - TUAN CHEPATIC FUNCTION [id number] 10:06:00 Test Item Value Reference Range Interpretation [...] (test code = 12 U/L 6-55 347) Inspector Electromechanical ID - TUAN CSpecimen moderately ictericRAD, CHEST, [...] MDReport Verified Date/Time: 01/21/2020 10:03:32 Reading Location: [facility] Radiology Reading Room XR chest 1 view portable / [id number] 10:03:00 Interface, External Ris In - 01/21/2020 [...] MDReport Verified Date/Time: 01/21/2020 10:03:32 Reading Location: [facility] Reading Room [facility] W/PLT COUNT & AUTO [id number] 09:59:00 Test Item Value Reference Range Interpretation [...] PERCENT (BEAKER) (test code = 2801) PROTHROMBIN TIME/[id number] 09:53:00 Test Item Value Reference Range Interpretation [...] including large volume ascites P Signed: John Crockre MDReport Verified Date/Time: 01/21/2020 07:51:30 Reading Location: [facility] Diagnostic Imaging Reading Room - [place] [address] MR abdomen without IV contrast 2020-01-21 07:51:00Interface, [...] Crocker Verified Date/Time: 01/21/2020 07:51:30 Reading Location: [facility] Diagnostic Imaging Reading Room - [facility] F1 [address] [facility] Type and screen, [id number] 22:06:00 Test Item Value Reference Range Interpretation Comments ABO/RH AUTOMATED (BEAKER) (test A POSITIVE code = 2260) Ab Scrn (test code = 890-4) NEGATIVE [facility] CenterRAD, CHEST, 1 VIEW, NON [id number] 21:16:00 Referring: Dr. Rowdy Zhang for exam:->JVD [...] MDReport Verified Date/Time: 01/20/2020 21:16:28 Reading Location: [facility] C0[facility] Transitional Reading Room Cryptococcal [id number] 11:36:00 Test Item Value Reference Range Interpretation Comments Cryptococcal Antigen, Serum Negative Negative, Interference (test code = 81501-5) Lab Interpretation (test code Normal = 73127-9) [facility] CenterCRYPTOCOCCAL [id number] 11:36:00 Test Item Value Reference Range Interpretation Comments CRYPTOCOCCAL ANTIGEN, SERUM Negative Negative, Interference (BEAKER) (test code = 1828) CBC W/PLT COUNT & AUTO [id number] 09:56:00 Test Item Value Reference Range Interpretation [...] CONCENTRATION Decreased (CELLAVISION)(BEAKER) (test code = 3438) Inspector Electromechanical ID - 6000Operator ID - Lizett OverholtUser comments: Slide comments: COMPREHENSIVE METABOLIC [id number] 05:46:00 Test Item Value Reference Range Interpretation [...] S NOT APPLICABLE FOR DIALYSIS PATIEN TS. Inspector Electromechanical ID Mercedes MIKEDORIAN LSpecimen moderately brbjqfjGFVDFGZYSR9713-06-21 05:37:00 Test Item Value Reference Range Interpretation Comments PHOSPHORUS (BEAKER) (test code = 2.8 mg/dL 2.3-4.7 604) Inspector Electromechanical ID - MITCH [id number] 05:37:00 Test Item Value Reference Range Interpretation Comments MAGNESIUM (BEAKER) (test code = 1.9 mg/dL 1.6-2.6 627) Inspector Electromechanical ID - MITCH LHEPATIC FUNCTION [id number] 05:37:00 Test Item Value Reference Range Interpretation [...] (test code = 9 U/L 6-55 347) Inspector Electromechanical ID - MITCH Goetzimen moderately ictericPROTHROMBIN TIME/[id number] 04:53:00 Test Item Value Reference Range Interpretation [...] is2.5-3.5 for patients wiht mechanical heart valves.CALCIUM, [id number] 04:45:00 Test Item Value Reference Range Interpretation Comments CALCIUM IONIZED (BEAKER) (test 1.14 mmol/L 1.12-1.27 code = 698) PH, BLOOD (BEAKER) (test code = 7.36 1810) Sodium, random [id number] 00:37:00 Test Item Value Reference Range Interpretation Comments Sodium Urine (test <20 meq/L code = 2955-3) VALENTE (test code = Reference Range: No VALENTE) NormalsOperator ID - MITCH L [facility]walk[facility] RANDOM [id number] 00:37:00 Test Item Value Reference Range Interpretation Comments SODIUM URINE (BEAKER) (test code = < meq/L 243) Reference Range: No NormalsOperator ID - MITCH LUrinalysis w/Microscopic 2020-01-20 00:30:00 Test Item Value Reference Range Interpretation Comments Color, UA (test code = Yellow 5778-6) Clarity, UA (test code = Hazy 5767-9) Specific [place], UA (test 1.017 1.001-1.035 code = 5811-5) pH, UA (test code = 5.5 5.0-8.0 5803-2) Protein, UA (test code = 20 mg/dL Negative A 01313-8) Glucose, UA (test code = Negative Negative 365) Ketones, UA (test code = Negative Negative 2514-8) Bilirubin, UA (test code = Negative Negative 75434-1) Blood, UA (test code = Small Negative A 15697-2) Nitrite, UA (test code = Negative Negative 5802-4) Leukocytes, UA (test code Trace Negative A = 5799-2) Urobilinogen, UA (test 0.2 mg/dL 0.2-1 code = 35835-1) RBC, UA (test code = 1 /HPF 37038-7) WBC, UA (test code = 3 /HPF 5821-4) Bacteria, UA (test code = Rare 75512-1) Squam Epithel, UA (test 3 /HPF code = 62927-2) Hyaline Casts, UA (test 3 /LPF code = 20230-8) Specimen Source (test code = 2795) VALENTE (test code = VALENTE) Inspector Electromechanical ID - [auto]Inspector Electromechanical ID - tech Lab Interpretation (test Abnormal code = 16237-4) [facility] CenterUrinalysis w/Microscopic + Reflex to Culture 2020-01-20 00:30:00 Test Item Value Reference Range Interpretation Comments Color, UA (test code = 5778-6) Yellow Clarity, UA (test code = 5767-9) Hazy Specific [place], UA (test code = 1.017 1.001-1.035 5811-5) pH, UA (test code = 5803-2) 5.5 5.0-8.0 Protein, UA (test code = 11997-2) 20 mg/dL Negative A Glucose, UA (test code = 365) Negative Negative Ketones, UA (test code = 2514-8) Negative Negative Bilirubin, UA (test code = 69411-6) Negative Negative Blood, UA (test code = 14777-3) Small Negative A Nitrite, UA (test code = 5802-4) Negative Negative Leukocytes, UA (test code = 5799-2) Trace Negative A Urobilinogen, UA (test code = 0.2 mg/dL 0.2-1 29541-4) RBC, UA (test code = 39846-4) 1 /HPF WBC, UA (test code = 5821-4) 3 /HPF Bacteria, UA (test code = 73959-5) Rare Squam Epithel, UA (test code = 3 /HPF 68428-8) Hyaline Casts, UA (test code = 3 /LPF 67287-6) Specimen Source (test code = 2285) Lab Interpretation (test code = Abnormal 78917-3) [facility] CenterURINALYSIS W/ REFLEX URINE [id number] 00:30:00 Test Item Value Reference Range Interpretation [...] SOURCE(BEAKER) (test code = 2795) URINALYSIS W/ [id number] 00:30:00 Test Item Value Reference Range Interpretation [...] /LPF 514) SOURCE(BEAKER) (test code = 2795) Inspector Electromechanical ID - [auto]Inspector Electromechanical ID - techActin (Smooth Muscle) Antibody, IgG [...] of patients withautoimmune hepatitis (AIH) type 1, xfadmtgxbrnqb04 % of patients with autoimmune cholangitis,lis sherine mately 30% of patients with primary biliarycirrhosi s, and approximate ly 2% of healthy people.High beatriz ues are closely correlated with AIH type 1. VALENTE (test code = Performing Lab VALENTE) EZ [facility] [address] [place] [address] Kerry Encarnacion MD, PhD, AMINA Lab Interpretation Abnormal (test code = 57154-3) [facility] CenterZinc2020-06-24 20:06:00 Test Item Value Reference Interpretation Comments Range Zinc (test code = 39 60- 130 mcg/dL L This te st was ) developed and i ts analytical performance characteristics have been determined by [employer] . It has not been cleared or appr jean-claude by theA. This assay has been validated pursu ant to the CLIA regulations and is used for clinic al purposes. VALENTE (test code = Performing Lab VALENTE) *BEATRIZ [facility], [address] [place] [id number] Jorje Jauregui MD, PhD Lab Interpretation Abnormal (test code = 01245-7) [facility] [id number] 16:12:00 Test Item Value Reference Range Interpretation Comments Case Report (test code Surgical Pathology = 104) Report Case: [id number] Authorizing Provider: Sylvie George MD Collected: 01/17/2020 08:15 AM Ordering Location: [address] Received: 01/17/2020 01:50 PM Service Pathologist: Humaira Mendez MD Specimen: Duodenum, biopsy ADDENDUM (test code = r5gefJLxXPZpmPBxHlItGG 3381) QfRNAdj0fuGDKemEGjLcJw MzNcZnRuYmpcdWMxXGRlZm Gus5fdg984jFEkz8lfANCv QvO7kPXoRUXrsOGtH442OD KxZStye7qhg9BxFASwwQGc j8V9GVMScbvidHn9rWrgI5 5mv6S2RuupP3gsYYCuZOCo Z2ZdOY7uOSGgOkg6YQD3HW Y0TMKfNONeT9VfER4rCVEr jXDfMGc4l3zbjPqeEVIrGX C2f1ghSZwnyoTdWW7qbl2f pGw4i3xcdbYoLXRiCHTgiO HRIGMmU1IbvMkrZf6ndJv6 oDktXbznQSD9Qkr8RN0sqe 34jka9uMfiHDThkvnhNeF3 JAsrBBRnwxfxBMg9CUjlCZ GcaUW4MIJybLKhU3ZnETNd CZ8ctqb8JAR8PZmzEYZbDh E5ILApgYNaPCHzrAtcPPcy q746AVJ2VcPwCB4kP9Ywm1 R9fY6hyMIjPIMyoJYhGjSm FKKtdg8zzZFzUHhlf7WxBT C0ufX7aUWdrAAcANEsQG51 Wgvaw7BwIreeLFV6SPIlcx Bpj3Fva4psAnHsddWwP7xl F8PtDXPhNVZaJPDgFwBrsw Bon6Oxq1XrjGKzkSw7m0vg ZCLvKZVspHaam0kqVVF9PA KbH6C7nPPob4prKJjeCGZs oCG5ijD2DRVciFYwL7SihZ 0dHYIvXO0axwg7t9dtBUZ9 AEomVAIwVgQ2cfD4TXAzjR NcNSHyoHwqHWzph738VTX5 JjXrLMNth7CxX0IujBpcH1 9zmOcqL12aOXSwmCefxU3i oZdwqQ7hRoIjVlNzVQysLH JkXHBsYWluXGYxXGZzMjBc bGFuZzEwMzNcaGljaFxmMV ihFjQoSRLhPLcgW2gcPhPn XtNbNRXCXYaWEXJAOA8ZMJ 8BUFaLSMkMK3HSWKAHVeZR RVBPUlQgVEhFIEZJTkRJTk dTIElOIFRIRSBERUVQRVIg LULDTQnRNA7EMOVHZLLQXW 0TF0kiJG4GIUgXChZaYNaD MHSOXsJNIPMHSCoEI0ALOc pccGFyXHFsXHBsYWluXGYw QFSmWxVzwZqinO9mWqYzXa EaVWonVP2nBWGaP0iunJHo ZOIrSMVaB8ekWtDttV3nuX xmMVxmczIwXHBhciAgRFVP UHUBOM6tNYIJMY5NA94PMQ MgQklPUFNZOlxwYXIgICAt NHLCVOHKSNFbNdFDM4RSTl DWRqZDWDRkULTUWN4QJGGK E5TGIVTjCHIUA9cDL7OBYw WnO0ZySK4RVVAHORDMN3EX Ni1SYUFBXXhrXJQdHPJmBG 1LAAHQJXKCKwZZOC4YBXRP TElBQyBESVNFQVNFIFNFRU 5ccGFyICAgLSBOTyBHUkFO VUxPTUFTLCBEWVNQTEFTSU IdA0IeNPGJKBsXUU8XITPS RUVOXHBhcn0= DIAGNOSIS (test code = h7wxlGQgTGPdr3wwDNMbbX 3220) FuZzEwMzNcZnRuYmpcdWMx UMogmnBvEImml1IxQ3UgXi AwMFxhbnNpXGRlZmxhbmcx IMFqDLG6hfZgUWQoLRlfUE IyGNjtAo1waDHqtWejGeNb TAUsu7ozvxXBwicgnMr5m5 fbVXGlBrU2kGZaBBwqD6cp mvBciIIiXWZkUTf1pV73AH VlvW1hdMGxDBdhseBiRlR1 RBmiUFJnZxK5XTWslXXsMH YuL4fwSXFeVAmaKLOdYKae cDKnWXM0pOexm5N5vWJpkK IwwSzhRmVgMqQiGOLAc3Ml YTd8sGkyA9HvXIJmHgO1bK QgUGFyYWdyYXBoIEZvbnQ7 yC65UIbkfmD9tMQcz5Sqg1 4qm171dW4soMRlDSV0PNOy LQPidYNhDHEfDUM5ZATfmJ HdN2j2PfJjqYOoS9N7CeMp uAKcL0B9XcXsiXVvU1I3Oe PpmDFbDBKoqFAxEs4uuGUt uGNzhs2xbh75TAJ2s7VxeU exHFX6QLC4IrFdRl9rnENh YPHfAF8uGuOinLSkDMHzby 19nCydABrcbkQkzF3sGzLf BNPsqTWjXAObXM9hqHPcQE JrkK2uhvpxLFQkEwNrmass LZQuqOxsnoDgQp8yaKgdSW E9LVcdJ1jrrZ8wNdU1ZUqq S7pcvY6bKBo2JYldqON7TY UxdB7pQQ6rfhxog2cfNuKw UC5saotwx2yhTnJnSP3rqz t5t5wqIiVrIW8bhsljd2ls NzIwXGhlYWRlcnkwXGZvb3 LmdyckIPIxm1RaK5VwxZep P79zqOwrE85gJJCydUfwlC 2cgNdqkO9xJyMrOoJkKJzv bFxwbGFpblxmMVxmczIwXG kufgbdNRXkMUwlB1teJqXb XRWwnAecRSavf7NeXCUiGN ZcXbSwYITHJHFQQJ1vGNHW JR4LL51BVHUjHjvYAVGOAn uuHEYbMYBlL0QCUBKIGXFD SFcrIqFVS98YEwCHAV9KKV PDVDmPOGQBF7GSVZ0RP48C LYOFMYCMMXpKD6UJJXTsOk 3SYA0BRNQmBJCFBQUGWVUY REmgMTIfcCYfLGTtek27UU V6EkVjv1F7SRI6WQSpIXPd r6abEXJreCEuWeDcIlIoFu LqWmydvUJlIAXoDhRzl2tn g893nMRqs7afBQQcFoJ3pC DeZLFgwWPpJ823BSNqTAax h5wih3AoBUMsbZMmo2S7ZP NGbklhvCi8kVseI82ie0Y9 SkoeF6zlONUjPGGkM7JhHG 8iWUBlWwl3OGC9MYF9XMJv UGGiO1GdMZ1dDCFgnCJiEM e0f8axrQnwDVGsRSB5x0iw XKudqdTbGG7vhw9gvPx6z8 xjczEgRGVmYXVsdCBQYXJh Q5YvhHoiQm4kdZm8sLynAv zmBJX9Lgt1EQ0bxk13zoz4 gDofPLJmnutdUkR8WEcmPM KhdpkvLCo8ZEwwFEBybAM6 XLDijRIqS6EwGKEdZH8uvr h0BIP9OIocEEZwQwU4TYUj eJPiWOYnuXbkKRbhz485ZA L9BsKsZK3dR9Cex3K1bP2d aXRcZGVmdGFiNzIwXGZvcm 8iqFOoHSwic0KgGAH1ygH2 hAVkwQZzMWGrOmS2WJciTA 9jpd10XCReOSO6bw6mmKUy lZsxplGqyIKwGKxzR3BuWD Onk400WBGkN7KcSNJpq6K7 ucPdFeAuQIYgjWF7yaC4PW YcSQ7pozqyj7tpTTdoPUiw EFEccqI2frH4WNWjjILaJ9 EflK5cMFGcKE6jxrzuq9jf JNA8MFtdDLHwWPW3MzDmIF Aun8Fkmjd3YiRmp8EveRHl FFdwU33xk203KYUakmLfA2 xwbGFpblxwbGFpblxmMFxm scS7XMMfSEahhdjlKDRgVI rcZ8kwXmRvXMEdgLzuSVip j4UsPGPqXDSiHdLhwOYbAZ PaClw4TWRiwIFgWSXcQnAt D9hfifnkSuDPAWNvf6gtE8 sjsHXEjIAsT8KyAIdhicIt JCocHKftZEY8XFD3Fy71Gt X7ZXUebf75 CPT Code(s) (test code o3zikNErZUModMGvLoEiWX = 3351) WlPQZau6ngLUBvvPSeJlHc MzNcZnRuYmpcdWMxXGRlZm Vea4ymq830uORlr7lwERLx BrO1cLWiFFNoaDQvI582e0 cwz2kpcpQujEU3JSOjCYD0 MReamgOfdwC3WIdtoNGqRp M3DHdesuYeSTvhwlZhumQn Uvq7CXHuK472DIH0iDdyd6 udJLE1AYHoCQTgDgCxTg1k mWYeP393EPNvGMXTENKphY g8HSAlziYnbcKdwSQFs287 F967f8smKZLcmuXlsTuMrh izw7fyB293YJNlhENzxsIv GeTyWCRmiRGhaAC3IBPyFO 0pfrsgMpCqEM7lvyoiXeGe IA3hoyq3LsVfIL3vklxyDm IdWSwuBKIvatkcWLZqc9Hx zyglOA3aH4Hmv5W1kI5zmE XjPNDqlVMqOpYzZCMyyi1n lKFvOVvlu9RhWQO5aoZ8oE LovBZjNCXiLL07Gsuoz0Rl UywpLBC2YMGstuAzt3Dzb5 hsHbMctiQoX4riZ1LtZYDb LZKeDDUoRpOptnWpx8Tzg2 KwyUXlsYa9a3peCHBvAFFo oPeef3ghRUJ2OZHfH9H1jJ Bhj0niLJdeRLKskJS5jmgd FVtgJWEzkyB8uoaiWFoeJS BdgWR8rfcoTAoyIAWeRvQ6 bubqXNppWFJqTNB2CTiwj2 99JZM6BDcnRthqPUflDJDp bmNvbnRccGduZGVjXHBsYW luXHBsYWluXGYwXGZzMjRc pFuaoQezwB9jEhVaVoAzYW ycZI7pUTVaX2ykqDZbVDMx DKZpO3vgPcSdeY1tjDxlEP avnvUkQKl2NcF3BXAwvq4= CLINICAL HISTORY (test u5xlcHEtKWVzuJOkYrHoOA code = 3356) FiCNFll8dtNXYrmAUpLnGm MzNcZnRuYmpcdWMxXGRlZm Ewg8znb581gKGco4xlDVMx ApN3jPLqYSPfuJEhT938BS PxJXede7mve5MqEGRkpVBu f6I4PEIWsvsmeSh5pUvdB7 6rx7H4TlxqV3baRUOmCXde NWLfJRposQYaUAW8JJMaXP P5HQskvmJahtP1HKzeqESa LhK0ZIm8v9xkwMtgJEMfVU U0b5jnKMzqleEzVV0kpj1j wNx4i4bujtTeETJdYLYfbT WEBHJuM2SffJfeOo2qdAv7 iScmVjpvTDG7Xvv9DX1kau 06qzh1lSelPNLgxxviJlI3 FFabJMDtfepbGBk6NFkeHK JnbDcyMFxtYXJncjcyMFxt YXJndDcyMFxtYXJnYjcyMF deLLKyTLU3KGnuw605XJQ9 UCvef2wgp3ioqNLcCey9BM VvEzXlHjbxIYnzc0Aar4vk MMUvby3oYIM0mAXqwKkhp3 D5lPBcGVRcdSXppnMvOBKi EcZ3PNoxZT7nez72LLNfVG J0wy7koZAkaRwuswBmiGOs PMfhV9WtMEQbl341GQCqL4 LcENAic4S0cmAuHjRlMBOw hFK7wxW7JIFpDNm2hIHvfk F0wpCpkOWmA5rxgL40XpKm vWSdN1QjuG13GsEomDBjN1 IyjB85DfIssGJtN1IvjQ76 DrFdtJDkTYOypFLzAl2asG LrwYOqt0JcmOPxMQlmP95l c788DHAmfePwP1bbyZRcqq xwbGFpblxmMFxmczIwXHFs XHBsYWluXGYwXGZzMjBccG seqT0rEbJfTmOnNFREvy6a JQI7hzY7HIPawYKcMCMnXV 4wV97zpBzfSgtndOG0CGQd LQDnf8qnez6kV67ioWNcmO HeKEFtDPXwnuOguV5ezO2w CQXfWUlyx0NjugrhZZ5wbQ lhXHBhcn0= SPECIMEN SOURCE (test z2pheCDtKMCheOGoXqChHF code = 3377) KqBFToo1nuNLAjbJNfKtOm MzNcZnRuYmpcdWMxXGRlZm Vlr7sjg375qTYbx5wgKZLj StT9zIKgSIZhoCPtY546d7 pnl5aiugWvgQJ5OHNpHSL8 HHdcudYogyJ6XPbklMNoAq S6IZsgouPnXNatnvRxwpRr Fwd9DKUmR965ROK8dYmcy3 jeBTL9SWYwVDZvBcLxEn6t sPGzP915STAkPWXOXBVfmU e0FGYqkcTkzjNvlRLYb828 B389f2vzYJIosgAtwGbHjm ykz8qtV488KZIgqBEgfwUv YxXtXJIhcMGymRV1GHOkVS 2samlcFzHvHV8fjqucIwNr YI1nbso1LpAgSP2xmugePt VxZLxnBVAazcadHNGza8Yt wqzsUD5eT3Qcj2R8uH3tuR MdEWLgnCUoRuCnGRDcvz5p bRKyAFhew8JoRXG0mfW8sZ HjaSQpTLCiVH62Xochu4Gz XckmTML1CHLrdePrz3Ofv1 ybCeMuefIbB5jmY7JlFBPe RVBcKADhRnYwfuFvh1Ueb0 SzfDHuePw1o3mmIZBfGGKb iXpig8fdALH6BJFcF8Q7yN Dtl9lhLBwxJSPhbOK2koez PNlyVPQvwbY4kzbhALysAQ AbcJG5fmdlDKhaRZCvFkN3 wxxqVZwpBIQnFXS6CEdtv9 79LLK3SSccEjquXLleBXQt bmNvbnRccGduZGVjXHBsYW luXHBsYWluXGYwXGZzMjRc wMlafOfkkN8oQaClEeIvPH kpJK1zCHLsT0hvkMSzUTPb MSYgU1auOtJupM4izKsmZM byriByPVZuXDM0h3ZixmRp PiDqnI6uf9xioLQrlO== GROSS DESCRIPTION (test u2hdjOHiHJEnmAMpGqIbOR code = 3366) BrRKKlb6eoRSLzsTTtAuFr MzNcZnRuYmpcdWMxXGRlZm Adv2njg890xDMqj3qeCYXb FdC2kBDiIAPuaOYjA781BR HbNAbpb2scy9LfWQDylPGd a3U8XRPKdfypxZm3jAudV0 8hb5N7LvsuR1ekASBxNBxg AWFyRCebxSAkBZY3ULLaXL D3CIrehgRhtvO3GSokqAVy VjH0JBu3k9iqwOjuIZIxWO D5j6mlTBzjatWkYL1xbh2q iFs9q2nccsSwNMCuYPOkhT YRWMVmH6CbmVnbGp1vhPv2 lSouQanmZFC4Rmv5JB7xrk 08azh0fFjnTENumhqaUdP8 LHpeHQAsrmdmXTc0SSmkBL JnbDcyMFxtYXJncjcyMFxt YXJndDcyMFxtYXJnYjcyMF bcXGMnSNL7NPzav256RLB7 NXexs5jep4upbGRqNjl1VG MrQdUaUraqNJbpo9Klq6wn YLUqpc4zQEC3mRGfsNvln6 S8yBSmDHTyvRMzddKpCOSt DoU9MRekKX1ahk87OGQrPO Q7rz6tlLJfbGirpzMswSOf BYwxJ4OuUXUse099FROkV4 XhDVNmh6K9eyYxIlPqIIUy rDB6qcU1YJKiIUz2dNHkih G8upPvpOQnE5nqbY47TaOc jRZjI5KxmD32WtNuxDIwS4 DerC98LsFctOMgT7ZssC90 VmTcjIDfWSSneYSuZo8erK LkoGZai6OdfPFjBVnpG27d s669ADUwgkZtO8ljsMKyjj xwbGFpblxmMFxmczIwXHFs XHBsYWluXGYwXGZzMjBccG sieK2pPoPxHmZiJYGLXmSA sQOoz5BiF8pbTE6nfVKdyr GuWZl4YNDajZ8zFw3ovYXw sU6bVYBkVZfeHQYcAFYxTv RfqIYgWMerCFG6kXVdXMUq TOPgQUBvYK27V4OpylKqPC biAEHbMFZkcW1vVC16yGBp ciBhbmQgIlxwbGFpblxmMF athfJkFRI5u5RfpaIjJxHx cxSnM08vh6vnyHPlx5Onn7 0qGEQcaj3ysY0fWCcgrCGi mkhcVLdeptMiSR67Y09vCC esE562ANCjNLhokEDksswt MFxmczIwICBwaWVjZXMgb2 CjyHhoz0VyNZ1tVZY5mulc ZyAwLjMgeCAwLjIgeCAwLj PjL09iYKzjdQFjkpugUPaf raUsZANzNCPknMJhaU5zgu VsnmEjfDKjeJH5LCWoLL51 fQRijXaxOz4wuX74vD6iDL HedMGgFDWhx81cxT7yQQGv JRMeJQN6ZEZxsYqrhJ6dGo YrLnEuSINVNW8mZDkMR1Rf XHBhcn0= MICROSCOPIC DESCRIPTION g3gniNHaKBEptNFoCcIzWF (test code = 3371) BmMGHbe7giDGGliGYaLdPm MzNcZnRuYmpcdWMxXGRlZm Cvt8czh498xBHfv5wdWIOx KiF3fDLtGXNafAWlG688h0 pnw9qkcnEvwMM1ZJAlLBR4 EQivkvBuziG6HNsupIImGk Q6MVnctdXwVBqpbwMlfyGz Rkb7VNFyJ830ITT2mQqor5 oyICS8TAMgSJCrRsQmVb9h vGQqM838VAChBAYQZXUdlX n7GNCoteOlhwWniTGRt201 K078q5bxEENbcaYihGgGda tax3poQ650PJKhvAPypjZg LoRvRSMwiQJnhAQ0JUSgEA 8zvgumUmCzJV6fclxkMvTw OZ5qmcj9GzFhCA1hcetePp IqIShuVZEguvtmKUJrt2Qm dcmsVY9bE5Guw7O3xV9kqG XwSGLnaDUdZgIvZMNwvm6a aVUpYXspe1GnKBT2joA4dA JwtKOwJIYbLH46Dqhdq7Tk EhykTXT2KGCuivZaj8Fsg5 eeJpMjagZuC1bwF8KhFERp TYPzCAWvJlGazcMjw3Zlu9 UlnIWpgEg4o6hkKFThTCLu oSkkk7hqFBE4WWGzJ4H0iL Lod6vkNCglYUOcuKF4ueef AMaaZVGqsxM8lctpKRtkGZ WsnFC8kmvfJXimMZXnVfC5 eyaeCNobHLCqOUE3ZKxmt8 40DWM2NBbmXanvDWjfLYVt bmNvbnRccGduZGVjXHBsYW luXHBsYWluXGYwXGZzMjRc hVicbIuqoI7sIsOaNkNmRV lyMA3lXGAyN0dnwQHwXZCq NUBqR0txOnPqcR3pcLdzGR rrrvCbJBDKJrFGRo8YWYuy YXJ9 [facility] CenterTISSUE [id number] 16:12:00Surgical Pathology Report Case: [id number] Authorizing Provider: Sylvie George MD Collected: 01/17/2020 08:15 AM Ordering Location: [address] Received: 01/17/2020 01:50 PM Service Pathologist: [...] FOVEOLAR METAPLASIA Signing Pathologist Direct Phone Line: [phone] signed by Humaira Mendez MD on 01/18/2020 at 3:50 [id number]: upper endoscopy, biopsy and colonoscopy Pre and postop diagnosis: anemiaA. Duodenum; biopsyA. The specimen is received in formalin labeled with the patient's name, accession number and "duodenum" and consists of one garduno-pink mucosal-covered pieces of tissue measuring 0.3 x 0.2 x 0.1cm. The specimen is submitted entirely following filtration in a cassette A1. HS/plPERFORMEDBlbethesda hospital gas, [id number] 16:03:00 Test Item Value Reference Range Interpretation [...] % Lab Interpretation (test code = Abnormal 46944-8) [facility] CenterBLOOD GAS, [id number] 16:03:00 Test Item Value Reference Range Interpretation Comments PH ARTERIAL (BEAKER) (test code = 7.42 7.35-7.45 383) PCO2 ARTERIAL (BEAKER) (test code 36 mmHg 35-45 = 384) PO2 ARTERIAL (BEAKER) (test code 78 mmHg 80-90 L = 385) O2 SATURATION ARTERIAL (BEAKER) 96.2 % 96.0-97.0 (test code = 386) HCO3 ARTERIAL (BEAKER) (test code 23 mmol/L -29 = 388) BASE EXCESS ARTERIAL (BEAKER) -1.9 mmol/L -2.0-3.0 (test code = 387) PATIENT TEMPERATURE (BEAKER) 36.1 C (test code = 1818) FIO2 (BEAKER) (test code = 1819) 28.0 % [id number] 15:05:00 Test Item Value Reference Range Interpretation Comments Ceruloplasmin (test code 21 mg/dL 18-53 = [id number]) VALENTE (test code = VALENTE) Performing Lab *BEAT[facility], [address] [place] [id number] Jorje Jauregui MD, PhD [facility] CenterCarbohydrate antigen 19-9 (CA 19-9)2020-01-19 12:51:00 Test Item Value Reference Range Interpretation Comments CA 19-9 32 U/mL <34 This test was (test code = performed using the 70638-2) Siemens Chemiluminescen t method.Values o btained from different assay methods cannot be used interchangeably .CA19-9 levels, regardl ess of value, should n ot be interpreted as absoluteevidenc e of the presence or abs ence of disease. VALENTE (test Performing Lab code = VALENTE) [facility] [address] [place] [address] Kerry Encarnacion MD, PhD, AMINA [facility] CenterPROTHROMBIN TIME/[id number] 11:28:00 Test Item Value Reference Range Interpretation [...] patients wiht mechanical heart valves.MM, U/S, BREAST, [id number] 09:52:00Referring: Dr. Rowdy Zhang for exam:->liver transplant [...] Jorge Brooks Verified Date/Time: 01/19/2020 09:52:28 Reading Location:[address] Mammo Reading Room US breast [id number] 09:52:00Interface, External Ris In - 01/19/2020 9:54 [...] MDReport Verified Date/Time: 01/19/2020 09:52:28 Reading Location: [address] Mammo Reading [facility] WITHOUT [id number] 08:09:00Referring: Dr. Rowdy LopestAnesthesia:->NonePlease specify abdominal organs:->AdrenalFINAL [...] MDReport Verified Date/Time: 01/19/2020 08:09:04 Reading Location: [facility] Diagnostic Imaging Reading Room - [place] [address] [address] abdomen without IV contrast 2020-01-19 08:09:00Interface, [...] MDReport Verified Date/Time: 01/19/2020 08:09:04 Reading Location: [facility] Diagnostic Imaging Reading Room - [place] [address] Electronically signed by: JOHN CROCKER MD on 0 01/19/2020 08:09 [facility] CenterCALCIUM, [id number] 07:59:00 Test Item Value Reference Range Interpretation [...] To Exercise midodrineConfirmed by fellow Bc Chávez ([id number]) on 01/18/2020 9:20:19 AMConfirmed by Shaq GARCIA MICHAEL([id number]) on 01/19/2020 7:03:55 [facility] CenterCOMPREHENSIVE METABOLIC PANEL 2020-01-19 05:21:00 Test [...] S NOT APPLICABLE FOR DIALYSIS PATIEN TS. Inspector Electromechanical ID - LASpecimen moderately [id number] 05:04:00 Test Item Value Reference Range Interpretation Comments PHOSPHORUS (BEAKER) (test code = 3.3 mg/dL 2.3-4.7 604) Inspector Electromechanical ID - [id number] 05:04:00 Test Item Value Reference Range Interpretation Comments MAGNESIUM (BEAKER) (test code = 2.0 mg/dL 1.6-2.6 627) Inspector Electromechanical ID - LAHEPATIC FUNCTION [id number] 05:04:00 Test Item Value Reference Range Interpretation [...] (test code = 10 U/L 6-55 347) Inspector Electromechanical ID - LASpecimen moderately ictericB-TYPE NATRIURETIC FACTOR (BNP) 2020-01-19 04:59:00 Test Item Value Reference Range Interpretation Comments B-TYPE NATRIURETIC PEPTIDE 2455 pg/mL 0-100 H (BEAKER) (test code = 700) Inspector Electromechanical ID - EDWIN BCBC W/PLT COUNT & AUTO [id number] 04:46:00 Test Item Value Reference Range Interpretation [...] (BEAKER) (test code = 2801) U/S, RENAL, [id number] 01:26:00Referring: Dr. Rowdy Zhang for exam:->Re-examine L [...] Sneed MDReport Verified Date/Time: 01/19/202001:26:59 US renal [id number] 01:26:00Interface, External Ris In - 01/19/2020 1:29 [...] Signed: Maira Sneed Verified Date/Time: 01/19/2020 01:26:59 [facility] CenterEosinophil [id number] 22:11:00 Test Item Value Reference Range Interpretation Comments Eosinophil Smear (test Rare EOS =less than No EOS seen A code = 14978-9) 5% WBCs seen are EOS Lab Interpretation (test Abnormal code = 10297-7) [facility] CenterEOSINOPHIL SMEAR, [id number] 22:11:00 Test Item Value Reference Range Interpretation Comments EOSINOPHIL SMEAR, URINE Rare EOS =less than No EOS seen A (BEAKER) (test code = 5% WBCs seen are EOS 1851) SODIUM, RANDOM [id number] 22:04:00 Test Item Value Reference Range Interpretation Comments SODIUM URINE (BEAKER) (test code = < meq/L 243) Reference Range: No NormalsOperator ID - EDWIN BCreatinine, random urine 2020-01-18 22:02:00 Test Item Value Reference Range Interpretation Comments Creatinine, Ur 181.3 mg/dL (test code = 2161-8) VALENTE (test code = Reference Range: No VALENTE) NormalsOperator ID - EDWIN B [facility] CenterProtein, random [id number] 22:02:00 Test Item Value Reference Range Interpretation Comments Protein, Urine (test code 45 mg/dL 0-14 H = 2888-6) VALENTE (test code = VALENTE) Inspector Electromechanical ID - EDWIN B Lab Interpretation (test Abnormal code = 22684-4) [facility] CenterCREATININE, RANDOM [id number] 22:02:00 Test Item Value Reference Range Interpretation Comments CREATININE URINE (BEAKER) (test 181.3 mg/dL code = 375) Reference Range: No NormalsOperator ID - EDWIN BPROTEIN, RANDOM [id number] 22:02:00 Test Item Value Reference Range Interpretation Comments PROTEIN, URINE (BEAKER) (test code = 45 mg/dL 0-14 H 1569) Inspector Electromechanical ID - EDWIN BURINALYSIS W/ [id number] 22:02:00 Test Item Value Reference Range Interpretation [...] (test Urine, Sterile code = 2795) Collection Inspector Electromechanical ID - [auto]Inspector Electromechanical ID - techHepatitis B core antibody, [id number] 16:02:00 Test Item Value Reference Range Interpretation Comments Hep B Core Total Ab Nonreactive Nonreactive (test code = 57556-3) VALENTE (test code = VALENTE) Inspector Electromechanical ID - CHARO Downs Lab Interpretation (test Normal code = 59487-2) [facility] CenterHEPATITIS B CORE ANTIBODY, [id number] 16:02:00 Test Item Value Reference Range Interpretation Comments HEPATITIS B CORE TOTAL ANTIBODY Nonreactive Nonreactive (BEAKER) (test code = 497) Inspector Electromechanical ID - CHARO FECG 12 [id number] 14:19:40Interface, External Ris In - 01/18/2020 2:19 PM CDTVentricular Rate 62 BPMAtrial Rate 62 BPMP-R Interval 138 msQRS Duration 86 msQ-T Interval 452 msQTC Calculation([place]) 458 msP [place] 59 degreesR [place] 32 degreesT [place] 56 degreesNormal sinus rhythmLow voltage QRSNonspecific ST cskjwzwinix42 DEC 2019 11:05Nonspecific T wave abnormality Nonspecific T wave abnormality, improved inQT has shortenedConfirmed by MD FARHAT, JESSIE ([id number]) on 01/18/2020 2:19:38 [facility] Cytomegalovirus antibody, [id number] 13:49:00 Test Item Value Reference Range Interpretation Comments CYTOMEGALOVIRUS, IGG Positive Negative, A (test code = 3429) Equivocal VALENTE (test code = VALENTE) CMV IgG Result Interpretation: </= 0.8 Al Negative 0.9-1.0 Al Equivocal >/=1.1 Al Positive Lab Interpretation (test Abnormal code = 74759-5) [facility] CenterEBV-VCA antibody, [id number] 13:49:00 Test Item Value Reference Range Interpretation Comments GABRIEL CHING VIRAL Positive Negative, A CAPSID ANTIGEN IGG (test Equivocal code = 3415) VALENTE (test code = VALENTE) Gabriel Ching Viral Capsid Antigen IgG Result Interpretation: </= 0.8 Al Negative 0.9-1.0 Al Equivocal >/= 1.1 Al Positive Lab Interpretation (test Abnormal code = 71661-7) [facility] CenterEBV-VCA antibody, [id number] 13:49:00 Test Item Value Reference Range Interpretation Comments GABRIEL CHING VIRAL Negative Negative, CAPSID ANTIGEN IGM (test Equivocal code = 3418) VALENTE (test code = VALENTE) Gabriel Ching Viral Capsid Antigen IgM Result Interpretation: </= 0.8 Al Negative 0.9-1.0 Al Equivocal >/= 1.1 Al Positive Lab Interpretation (test Normal code = 81879-6) [facility] CenterCytomegalovirus antibody, [id number] 13:49:00 Test Item Value Reference Range Interpretation Comments CMV IGM (test code = Negative Negative, 3437) Equivocal VALENTE (test code = VALENTE) CMV IgM Result Interpretation: </= 0.8 Al Negative 0.9-1.0 Al Equivocal >/= 1.1 Al Positive Lab Interpretation (test Normal code = 22751-7) [facility] CenterCYTOMEGALOVIRUS ANTIBODY, [id number] 13:49:00 Test Item Value Reference Range Interpretation Comments CYTOMEGALOVIRUS, IGG (BEAKER) Positive Negative, Equivocal A (test code = 3429) CMV IgG Result Interpretation: </= 0.8 Al Negative 0.9-1.0 Al Equivocal >/=1.1 Al PositiveCYTOMEGALOVIRUS ANTIBODY, [id number] 13:49:00 Test Item Value Reference Range Interpretation Comments CYTOMEGALOVIRUS IGM ANTIBODY Negative Negative, Equivocal (BEAKER) (test code = 3437) CMV IgM Result Interpretation: </= 0.8 Al Negative 0.9-1.0 Al Equivocal >/= 1.1 Al PositiveEBV ANTIBODY, [id number] 13:49:00 Test Item Value Reference Range Interpretation [...] Negative 0.9-1.0 Al Equivocal >/= 1.1 Al [id number] 13:35:00 Test Item Value Reference Range Interpretation Comments T3, Total (test code = 3053-6) 51 ng/dL 48-159 Lab Interpretation (test code = Normal 63232-4) [facility] CenterT32020-06-23 13:35:00 Test Item Value Reference Range Interpretation Comments T3 TOTAL (BEAKER) (test code = 656) 51 ng/dL 48-159 PET/CT, CARDIAC PERF REST AND [id number] 12:45:00Referring: Dr. Rowdy Zhang for exam:->pre op cardiac clearance for liver transplantFINAL REPORT PROCEDURE: MYOCARDIAL PERFUSION PET IMAGING (Rest/Stress)CPT CODE: 06389 INDICATION: Evaluation for liver transplant CARDIOVASCULAR PROFILE:Symptoms: [...] MDReport Verified Date/Time: 01/18/2020 12:45:40 Reading Location: [address] Reading Room [place] Myocardial Perfusion Pet/CT (Rest & Stress)2020-01-18 12:45:00Interface, External Ris In - 01/18/2020 12:47 PM CDTFINAL REPORT PROCEDURE: MYOCARDIAL PERFUSION PET IMAGING (Rest/Stress)CPT CODE: 55807 INDICATION: Evaluation for liver transplant CARDIOVASCULAR PROFILE:Symptoms: [...] MDReport Verified Date/Time: 01/18/2020 12:45:40 Reading Location: [address] Reading Room [facility] HEPATIC FUNCTION [id number] 10:29:00 Test Item Value Reference Range Interpretation [...] (test code = 9 U/L 6-55 347) Inspector Electromechanical ID - CHARO FSpecimen moderately ictericCBC W/PLT COUNT & AUTO [id number] 08:43:00 Test Item Value Reference Range Interpretation [...] CONCENTRATION Decreased (CELLAVISION)(BEAKER) (test code = 3438) Inspector Electromechanical ID - 6000Operator ID - Lizett OverholtUser comments: Slide comments: [id number] 07:29:00 Test Item Value Reference Range Interpretation Comments MAGNESIUM (BEAKER) (test code = 2.1 mg/dL 1.6-2.6 627) Inspector Electromechanical ID - CHARO FBASIC METABOLIC [id number] 07:29:00 Test Item Value Reference Range Interpretation [...] I S NOT APPLICABLE FOR DIALYSIS PATIEN IZZY. Inspector Electromechanical ID - CHARO FSpecimen moderately ictericAnti-Nuclear Antibody (REILLY) 2020-01-17 10:54:00 Test Item Value Reference Range Interpretation Comments REILLY (test code = 17237-7) Negative Negative VALENTE (test code = VALENTE) Test performed by IFA method.Test performed by IFA method. Lab Interpretation (test Normal code = 41974-7) [facility] CenterANTI-NUCLEAR ANTIBODY (REILLY)2020-01-17 10:54:00 Test Item Value Reference Range Interpretation Comments ANTI-NUCLEAR ANTIBODY (REILLY) (BEAKER) Negative Negative (test code = 418) Test performed by IFA method.Test performed by IFA method.[id number] 10:49:00 Test Item Value Reference Range Interpretation Comments RPR (test code = 28624-1) Nonreactive Nonreactive Lab Interpretation (test code = Normal 79389-3) [facility] CenterRPR2020-06-22 10:49:00 Test Item Value Reference Range Interpretation Comments RPR SCREEN (BEAKER) (test code = Nonreactive Nonreactive 420) CBC W/PLT COUNT & AUTO [id number] 10:00:00 Test Item Value Reference Range Interpretation [...] CONCENTRATION Decreased (CELLAVISION)(BEAKER) (test code = 3438) Inspector Electromechanical ID - 6000Operator ID - Alem Mars comments: Slide comments:BASIC METABOLIC [id number] 05:16:00 Test Item Value Reference Range Interpretation [...] S NOT APPLICABLE FOR DIALYSIS PATIEN TS. Inspector Electromechanical ID - PIAYA LSpecimen moderately [id number] 05:15:00 Test Item Value Reference Range Interpretation Comments MAGNESIUM (BEAKER) (test code = 2.1 mg/dL 1.6-2.6 627) Inspector Electromechanical ID - PIAYA LPROTHROMBIN TIME/[id number] 04:50:00 Test Item Value Reference Range Interpretation [...] patients wiht mechanical heart valves.Vitamin B12 and [id number] 16:46:00 Test Item Value Reference Range Interpretation Comments Vitamin B12 (test code = 1107 pg/mL 213-816 H 2132-9) Folate (test code = 2284-8) 3.40 ng/mL >=7.00 L VALENTE (test code = VALENTE) Inspector Electromechanical ID - NTP Lab Interpretation (test Abnormal code = 43390-2) [facility] CenterVITAMIN B12 AND [id number] 16:46:00 Test Item Value Reference Range Interpretation Comments VITAMIN B12 (BEAKER) (test code = 1107 pg/mL 213-816 H 774) FOLATE (BEAKER) (test code = 362) 3.40 ng/mL >=7.00 L Inspector Electromechanical ID - NTPLactate dehydrogenase (LDH)2020-01-16 12:57:00 Test Item Value Reference Range Interpretation Comments LDH (test code = 2532-0) 250 U/L 125-220 H VALENTE (test code = VALENTE) Inspector Electromechanical ID - TUAN C Lab Interpretation (test Abnormal code = 89114-8) [facility] CenterLACTATE DEHYDROGENASE (LDH)2020-01-16 12:57:00 Test Item Value Reference Range Interpretation Comments LACTATE DEHYDROGENASE (BEAKER) (test 250 U/L 125-220 H code = 635) Inspector Electromechanical ID - TUAN CRETICULOCYTE [id number] 12:44:00 Test Item Value Reference Range Interpretation Comments RETICULOCYTE COUNT PCT (BEAKER) (test 5.0 % 0.5-1.7 H code = 575) Inspector Electromechanical ID - 6000HIV-1 Antigen with HIV-1/2 Esfjudqi5220-20-79 12:17:00 Test Item Value Reference Range Interpretation Comments HIV-1 Antigen with HIV Nonreactive Nonreactive 1&2 Antibody (test code = 03867-9) VALENTE (test code = VALENTE) Inspector Electromechanical ID - TUAN C Lab Interpretation (test Normal code = 26343-4) [facility] CenterHIV-1 ANTIGEN WITH HIV-1/2 [id number] 12:17:00 Test Item Value Reference Range Interpretation Comments HIV-1 ANTIGEN WITH HIV 1\\T\\2 Nonreactive Nonreactive ANTIBODY (2) (BEAKER) (test code = 2586) Inspector Electromechanical ID - TUAN KKyccsehjwhg6397-92-32 12:02:00 Test Item Value Reference Range Interpretation Comments Haptoglobin (test code = <8 14-258 L 4542-7) VALENTE (test code = VALENTE) Inspector Electromechanical ID - TUAN C Lab Interpretation (test Abnormal code = 87922-6) [facility] CenterHAPTOGLOBIN2020-06-21 12:02:00 Test Item Value Reference Range Interpretation Comments HAPTOGLOBIN (KIRK) (test code = < mg/dL 14-258 L 366) Inspector Electromechanical ID - TUAN CHemoglobin [id number] 09:01:00 Test Item Value Reference Range Interpretation Comments Hemoglobin A1C (test code = 4548-4) <3.8 4.3-6.1 L Lab Interpretation (test code = Abnormal 19792-9) [facility] CenterHEMOGLOBIN [id number] 09:01:00 Test Item Value Reference Range Interpretation Comments HEMOGLOBIN A1C (BEAKER) (test code = < % 4.3-6.1 L 368) U/S, ABDOMINAL, WITH [id number] 07:32:00Referring: Dr. Rowdy Mccarthy Reason for exam:->liver [...] MDReport Verified Date/Time: 01/16/2020 07:32:01 Reading Location: [address] Transitional Reading Room US abdominal with bqogoiy7693-02-85 07:32:00Interface, External Ris In - 01/16/2020 7:34 [...] MDReport Verified Date/Time: 01/16/2020 07:32:01 Reading Location: [facility] C013T Transitional Reading [facility] METABOLIC [id number] 04:41:00 Test Item Value Reference Range Interpretation [...] S NOT APPLICABLE FOR DIALYSIS PATIEN TS. Inspector Electromechanical ID - MITCH LSpecimen moderately [id number] 04:38:00 Test Item Value Reference Range Interpretation Comments MAGNESIUM (BEAKER) (test code = 2.3 mg/dL 1.6-2.6 627) Inspector Electromechanical ID - MITCH LHEPATIC FUNCTION [id number] 04:38:00 Test Item Value Reference Range Interpretation [...] (test code = 9 U/L 6-55 347) Inspector Electromechanical ID - MITCH LSpecimen moderately ictericPROTHROMBIN TIME/[id number] 04:36:00 Test Item Value Reference Range Interpretation [...] mechanical heart valves.CBC W/PLT COUNT & AUTO [id number] 04:29:00 Test Item Value Reference Range Interpretation [...] (BEAKER) (test code = 2801) Carotid doppler dgbaddgdx6418-46-19 00:34:03[facility] E[facility] HEARTLAB MKCKESSON CPACSRight Impression1. The internal, [...] ! ! !+ +----+----+-----+ + + +!Vert coleral !67.3!18.2!60 ! ! ! !+ +----+----+-----+ +----- [...] CDTPV LAB - Carotid Duplex Study [facility] Patient Name CICI CALDERON Date of Study 01/15/2020 ALYSE Age 64 Visit Number [id number] Gender Female Accession Number [id number] Date of 1955 Referring Eliecer Caruso Room Number 1515 Physician Capsule Maker Herbert Lechuga Interpreting Chelsea Resendez T [...] + + + - Additional Measurements:ICAPSV/CCAPSV 0.96.ICAEDV/CCAEDV 1.52.[facility] CenterBlood typing, automated - - at seperate draw time from initial type and [id number] 20:34:00 Test Item Value Reference Range Interpretation Comments ABO/RH AUTOMATED (KIRK) (test A POSITIVE code = 2260) [facility] CenterT42020-06-20 18:08:00 Test Item Value Reference Range Interpretation Comments T4, Total (test code = 4.3 ug/dL 4.9-11.7 L 3026-2) VALENTE (test code = VALENTE) Inspector Electromechanical ID - NTP Lab Interpretation (test Abnormal code = 86141-1) [facility] CenterT42020-06-20 18:08:00 Test Item Value Reference Range Interpretation Comments T4 TOTAL (KIRK) (test code = 895) 4.3 ug/dL 4.9-11.7 L Inspector Electromechanical ID - RSXFwumbzrd4358-52-56 18:07:00 Test Item Value Reference Range Interpretation Comments Ferritin (test code = 489.86 ng/mL 5-275 H 2276-4) VALENTE (test code = VALENTE) Inspector Electromechanical ID - NTP Lab Interpretation (test Abnormal code = 56524-1) [facility] CenterFERRITIN2020-06-20 18:07:00 Test Item Value Reference Range Interpretation Comments FERRITIN (BEAKER) (test code = 489.86 ng/mL 5.00-275.00 H 361) Inspector Electromechanical ID - NTPCT, CHEST, WITHOUT [id number] 17:57:00Referring: Dr. Rowdy LopestFINAL REPORT CT of [...] [place] Verified Date/Time: 01/15/2020 17:57:54 Reading Location: [address] Ortho Consult Reading Room CT chest without IV [id number] 17:57:00Interface, External Ris In - 01/15/2020 6:00 [...] [place] Verified Date/Time: 01/15/2020 17:57:54 Reading Location: [facility] C013X Ortho Consult Reading Room [facility] 2020-01-15 17:27:00 Test Item Value Reference Range Interpretation Comments TSH (test code = 39757-9) 5.549 0.350- 4.940 uIU/mL H VALENTE (test code = VALENTE) Inspector Electromechanical ID - DB Lab Interpretation (test Abnormal code = 97718-6) [facility] CenterVitamin D, 84-Oyphqtp7783-57-20 17:27:00 Test Item Value Reference Range Interpretation Comments Vitamin D 25-Hydroxy 6.2 ng/mL 6.6-49.9 L (test code = 2764) VALENTE (test code = VALENTE) Effective 05/07/2017: Reference Range ChangeNew: 6.6-49.9 ng/mL Previous: 13.0-47.8 ng/mL Recommended Vitamin D Target Range: 30.0-40.0 ng/mLOperator ID - DB Lab Interpretation (test Abnormal code = 46257-7) [facility] CenterVITAMIN D, 69-[id number] 17:27:00 Test Item Value Reference Range Interpretation Comments VITAMIN D 25-OH (BEAKER) (test code 6.2 ng/mL 6.6-49.9 L = 2764) Effective 05/07/2017: Reference Range ChangeNew: 6.6-49.9 ng/mL Previous: 13.0-47.8 ng/mLRecommended Vitamin D Target Range: 30.0-40.0 ng/mLOperator ID - [id number] 17:27:00 Test Item Value Reference Range Interpretation Comments THYROID STIMULATING HORMONE 5.549 uIU/mL 0.350-4.940 H (BEAKER) (test code = 772) Inspector Electromechanical ID - DBALPHA FETOPROTEIN (AFP), TUMOR [id number] 17:27:00 Test Item Value Reference Range Interpretation Comments ALPHA-FETOPROTEIN (BEAKER) (test code < ng/mL <10.0 = 1094) Inspector Electromechanical ID - DBHepatitis B surface [id number] 17:25:00 Test Item Value Reference Range Interpretation Comments HBsAg Screen (test code Nonreactive Nonreactive = 5195-3) VALENTE (test code = VALENET) Specimen is considered negative for HBsAg. Lab Interpretation (test Normal code = 75609-7) [facility] B surface [id number] 17:25:00 Test Item Value Reference Range Interpretation Comments Hep B S Ab (test code = 25.0 <8.0 mIU/mL H 27312-0) VALENTE (test code = VALENTE) Inspector Electromechanical ID - DB Lab Interpretation (test Abnormal code = 19712-0) [facility] CenterHetristar [facility] hospitaltis C dhtbvute0912-02-79 17:25:00 Test Item Value Reference Range Interpretation Comments Hepatitis C Ab (test code = Nonreactive Nonreactive 31354-5) VALENTE (test code = VALENTE) Inspector Electromechanical ID - DB Lab Interpretation (test Normal code = 65651-6) [facility] CenterTIS B SURFACE [id number] 17:25:00 Test Item Value Reference Range Interpretation Comments HEPATITIS B SURFACE ANTIGEN (2) Nonreactive Nonreactive (BEAKER) (test code = 2585) Specimen is considered negative for HBsAg.HEPATITIS B SURFACE [id number] 17:25:00 Test Item Value Reference Range Interpretation Comments HEPATITIS B SURFACE ANTIBODY 25.0 mIU/mL <8.0 H (BEAKER) (test code = 647) Inspector Electromechanical ID - DBHEPATITIS C [id number] 17:25:00 Test Item Value Reference Range Interpretation Comments HEPATITIS C ANTIBODY (BEAKER) Nonreactive Nonreactive (test code = 367) Inspector Electromechanical ID - DBCarcinoembryonic Antigen (CEA)2020-01-15 17:23:00 Test Item Value Reference Range Interpretation Comments CEA, SERUM (test code = 7.9 ng/mL 0-5 H 2038-) VALENTE (test code = VALENTE) Inspector Electromechanical ID - DB Lab Interpretation (test Abnormal code = 88244-4) [facility] CenterHepatitis B core antibody, [id number] 17:23:00 Test Item Value Reference Range Interpretation Comments Hep B C IgM (test code = Nonreactive Nonreactive 04369-1) VALENTE (test code = VALENTE) Inspector Electromechanical ID - DB Lab Interpretation (test Normal code = 40039-5) [facility] CenterHepatitis A antibody, [id number] 17:23:00 Test Item Value Reference Range Interpretation Comments Hep A IgM (test code = Nonreactive Nonreactive 94526-1) VALENTE (test code = VALENTE) Inspector Electromechanical ID - DB Lab Interpretation (test Normal code = 68873-4) [facility] CenterCARCINOEMBRYONIC ANTIGEN (CEA)2020-01-15 17:23:00 Test Item Value Reference Range Interpretation Comments CARCINOEMBRYONIC ANTIGEN (BEAKER) 7.9 ng/mL 0.0-5.0 H (test code = 685) Inspector Electromechanical ID - DBHEPATITIS B CORE ANTIBODY, [id number] 17:23:00 Test Item Value Reference Range Interpretation Comments HEPATITIS B CORE IGM ANTIBODY Nonreactive Nonreactive (BEAKER) (test code = 645) Inspector Electromechanical ID - DBHEPATITIS A ANTIBODY, [id number] 17:23:00 Test Item Value Reference Range Interpretation Comments HEPATITIS A IGM ANTIBODY (BEAKER) Nonreactive Nonreactive (test code = 498) Inspector Electromechanical ID - DBRAD, MANDIBLE, MIN 4 [id number] 17:22:00Referring: Dr. Rowdy Zhang for exam:->liver transplant evaluation, cirrhosisShould this be performed at the bedside?->NoFINAL REPORT MANDIBLE 4 VIEWS HISTORY: Cirrhosis, liver transplant evaluationCOMPARISON: No comparison mandibular imaging FINDINGS: PA, lateral, bilateral oblique, and Anyeli's views of the mandible were obtained. The only residual teeth present are the central 7 teeth in the center of the mandible. No periapical abscess is seen in association with these. No dental caries are appreciated. No fracture or bony destruction are visualized in the mandible. Signed: Albaro Alvarado Verified Date/Time: 01/15/2020 17:22:12 Reading Location: [address] Transitional Reading Room XR mandible min 4 [id number] 17:22:00Interface, External Ris In - 01/15/2020 5:24 [...] Alvarado Verified Date/Time: 01/15/2020 17:22:12 Reading Location: [facility] C0[facility] Transitional Reading [facility] HospitalRAD, [facility]ST, 2 [id number] 17:16:00Referring: Dr. Rowdy Zhang for exam:->liver transplant [...] Alvarado Verified Date/Time: 01/15/2020 17:16:49 Reading Location: [address] Transitional Reading Room XR chest 2 [id number] 17:16:00Interface, External Ris In - 01/15/2020 5:19 [...] Alvarado Verified Date/Time: 01/15/2020 17:16:49 Reading Location: [address] Transitional Reading Room [facility] 2D Echo W/Doppler(CW/PW/Color)2020-01-15 17:15:41[facility]SNOR[facility] ECHO HEARTLAB MKCKESSON CPACSInterface, External Ris In - 01/15/2020 5:15 PM C DTTransthoracic Echocardiography Report (TTE) Demographics Patient Name CICI CALDERON Date of Study 01/15/2020 ALYSE Gender Female Visit Number [id number] Race Unknown Room Number 1515 Number Date of 1955 Referring Physician Ren Hernandez MD Age 64 year(s) Capsule Maker Lisa Bautista [facility] Interpreting Jai Arreguin MD [...] CO: 7.05 l/min LVOT CI: 3.67 l/min/m^2[facility] CenterCOMPREHENSIVE METABOLIC [id number] 17:06:00 Test Item Value Reference Range Interpretation [...] S NOT APPLICABLE FOR DIALYSIS PATIEN TS. Inspector Electromechanical ID - NTPSpecimen moderately kenougnGdgffgexel4198-05-26 17:03:00 Test Item Value Reference Range Interpretation Comments Fibrinogen (test code = 3255-7) 114 mg/dl 225-434 L Lab Interpretation (test code = Abnormal 68589-1) [facility] CenterFIBRINOGEN2020-06-20 17:03:00 Test Item Value Reference Range Interpretation Comments FIBRINOGEN LEVEL (BEAKER) (test 114 mg/dl 225-434 L code = 658) Fywjtptyqer1133-54-11 17:00:00 Test Item Value Reference Range Interpretation Comments Transferrin (test code = 102 mg/dL 174-382 L 3034-6) VALENTE (test code = VALENTE) Inspector Electromechanical ID - DBSpecimen moderately icteric Lab Interpretation (test Abnormal code = 63875-8) [facility] CenterIron, TIBC, % sat. (without ferritin)2020-01-15 17:00:00 Test Item Value Reference Range Interpretation Comments Iron (test code = 2498-4) 144.0 ug/dL 40-160 TIBC (test code = 2500-7) 129 ug/dL 250-450 L Iron % Saturation (test code 112 % 20-55 H = 2502-3) VALENTE (test code = VALENTE) Inspector Electromechanical ID - DB Lab Interpretation (test Abnormal code = 38295-0) [facility] CenterTRANSFERRIN2020-06-20 17:00:00 Test Item Value Reference Range Interpretation Comments TRANSFERRIN (BEAKER) (test code = 102 mg/dL 174-382 L 541) Inspector Electromechanical ID - DBSpecimen moderately ictericIRON, TIBC, % SAT. (WITHOUT FERRITIN) 2020-01-15 17:00:00 Test Item Value Reference Range Interpretation Comments IRON (BEAKER) (test code = 547) 144.0 ug/dL 40.0-160.0 TOTAL IRON BINDING CAPACITY 129 ug/dL 250-450 L (BEAKER) (test code = 769) IRON % SATURATION (2) (BEAKER) 112 % 20-55 H (test code = 2590) Inspector Electromechanical ID - LUXpswe-8-fgmjhxmklcd5569-06-20 16:59:00 Test Item Value Reference Range Interpretation Comments A-1 Antitrypsin (test code = 121.20 mg/dL 90-200 1825-9) VALENTE (test code = VALENTE) Inspector Electromechanical ID - DB Lab Interpretation (test Normal code = 84785-3) [facility] CenterBILIRUBIN, [id number] 16:59:00 Test Item Value Reference Range Interpretation Comments BILIRUBIN DIRECT 1.6 mg/dL 0.1-0.5 H Specimen sl ightly (BEAKER) (test code = hemoly zed 706) Inspector Electromechanical ID - [id number]-9-[id number] 16:59:00 Test Item Value Reference Range Interpretation Comments ALPHA-1 ANTITRYPSIN (BEAKER) 121.20 mg/dL 90.00-200.00 (test code = 502) Inspector Electromechanical ID - [id number] 16:58:00 Test Item Value Reference Range Interpretation Comments Ethanol Lvl (test code = <10 <=10 mg/dL 5643-2) VALENTE (test code = VALENTE) Inspector Electromechanical ID - DB Lab Interpretation (test Normal code = 67997-5) [facility]eraPTT2020-[facility] 16:58:00 Test Item Value Reference Range Interpretation Comments PTT (test code = 11888-5) 36.8 22.5- 36.0 seconds H Lab Interpretation (test code = Abnormal 62435-5) [facility] CenterAPTT[facility] 16:58:00 Test Item Value Reference Range Interpretation Comments PARTIAL THROMBOPLASTIN TIME 36.8 seconds 22.5-36.0 H (BEAKER) (test code = 760) [id number] 16:58:00 Test Item Value Reference Range Interpretation Comments ETHANOL (BEAKER) (test code = 400) < mg/dL <=10 Inspector Electromechanical ID - DBPROTHROMBIN TIME/[id number] 16:57:00 Test Item Value Reference Range Interpretation [...] is2.5-3.5 for patients wiht mechanical heart valves.CALCIUM, [id number] 16:45:00 Test Item Value Reference Range Interpretation Comments CALCIUM IONIZED (BEAKER) (test 1.08 mmol/L 1.12-1.27 L code = 698) PH, BLOOD (BEAKER) (test code = 7.38 1810) CREATININE, RANDOM [id number] 13:46:00 Test Item Value Reference Range Interpretation Comments CREATININE URINE (BEAKER) (test 280.7 mg/dL code = 375) Reference Range: No NormalsOperator ID - NTPSODIUM, RANDOM [id number] 13:46:00 Test Item Value Reference Range Interpretation Comments SODIUM URINE (BEAKER) (test code = < meq/L 243) Reference Range: No NormalsOperator ID - NTPHepatitis panel, [id number] 13:05:00 Test Item Value Reference Range Interpretation Comments Hep A IgM (test code = Nonreactive Nonreactive 85847-4) Hep B C IgM (test code = Nonreactive Nonreactive 18551-2) Hepatitis C Ab (test code = Nonreactive Nonreactive 02009-5) HBsAg Screen (test code = Nonreactive Nonreactive 5195-3) VALENTE (test code = VALENTE) Inspector Electromechanical ID - NTP Lab Interpretation (test Normal code = 52060-0) [facility] CenterHEPATITIS PANEL, [id number] 13:05:00 Test Item Value Reference Range Interpretation Comments HEPATITIS A IGM ANTIBODY (BEAKER) Nonreactive Nonreactive (test code = 498) HEPATITIS B CORE IGM ANTIBODY Nonreactive Nonreactive (BEAKER) (test code = 645) HEPATITIS C ANTIBODY (BEAKER) Nonreactive Nonreactive (test code = 367) HEPATITIS B SURFACE ANTIGEN (2) Nonreactive Nonreactive (BEAKER) (test code = 2585) Inspector Electromechanical ID - NTPLipid [id number] 11:51:00 Test Item Value Reference Range Interpretation Comments Triglycerides (test 86 mg/dL code = 2571-8) Cholesterol (test code 101 mg/dL = 2093-3) HDL (test code = 12 mg/dL 2085-9) LDL Calculated (test 72 mg/dL code = 49120-1) VALENTE (test code = VALENTE) Triglyceride Reference Range: Low Risk <150 Borderline 150-199 High Risk 200-499 Very High Risk >=500 Cholesterol Reference Range: Low Risk <200 Borderline 200-239 High Risk >240 HDL Cholesterol Reference Range: Low Risk >=60 High Risk <40 LDL Cholesterol Reference Range: Optimal <100 Near Optimal 100-129 Borderline 130-159 High 160-189 Very High >=190 Inspector Electromechanical ID - NTPSpecimen moderately icteric [facility] CenterGamma Glutamyl Transferase (GGT)2020-01-15 11:51:00 Test Item Value Reference Range Interpretation Comments GGT (test code = 2324-2) 15 U/L 9-64 VALENTE (test code = VALENTE) Inspector Electromechanical ID - NTPSpecimen moderately icteric Lab Interpretation (test Normal code = 98251-4) [facility] CenterUric [id number] 11:51:00 Test Item Value Reference Range Interpretation Comments Uric Acid (test code = 15.7 mg/dL 2.6-7.2 H 3084-1) VALENTE (test code = VALENTE) Inspector Electromechanical ID - NTPSpecimen moderately icteric Lab Interpretation (test Abnormal code = 70004-7) [facility] CenterURIC [id number] 11:51:00 Test Item Value Reference Range Interpretation Comments URIC ACID (BEAKER) (test code = 15.7 mg/dL 2.6-7.2 H 773) Inspector Electromechanical ID - NTPSpecimen moderately ictericLIPID [id number] 11:51:00 Test Item Value Reference Range Interpretation [...] Borderline 130-159 High 160-189 Very High >=190 Inspector Electromechanical ID - NTPSpecimen moderately [id number] 11:51:00 Test Item Value Reference Range Interpretation Comments PHOSPHORUS (BEAKER) (test code = 4.5 mg/dL 2.3-4.7 604) Inspector Electromechanical ID - NTPGAMMA GLUTAMYL TRANSFERASE (GGT)2020-01-15 11:51:00 Test Item Value Reference Range Interpretation Comments GAMMA GLUTAMYL TRANSFERASE (BEAKER) 15 U/L 9-64 (test code = 364) Inspector Electromechanical ID - NTPSpecimen moderately ictericCBC W/PLT COUNT & AUTO [id number] 11:25:00 Test Item Value Reference Range Interpretation [...] CONCENTRATION Decreased (CELLAVISION)(BEAKER) (test code = 3438) Inspector Electromechanical ID - 6000Operator ID - Guy-Yves James comments: Slide comments: [id number] 10:20:00 Test Item Value Reference Range Interpretation Comments MAGNESIUM (BEAKER) (test code = 2.2 mg/dL 1.6-2.6 627) Inspector Electromechanical ID - [id number] 08:57:00 Test Item Value Reference Range Interpretation Comments Ammonia (test code = 19 18- 72 mol/L 73312-2) VALENTE (test code = VALENTE) Inspector Electromechanical ID - NTP Lab Interpretation (test Normal code = 25596-4) [facility] CenterAMMONIA2020-06-20 08:57:00 Test Item Value Reference Range Interpretation Comments AMMONIA (BEAKER) (test code = 348) 19 mol/L 18-72 Inspector Electromechanical ID - NTPHEPATIC FUNCTION [id number] 05:21:00 Test Item Value Reference Range Interpretation [...] (test code = 12 U/L 6-55 347) Inspector Electromechanical ID - DALTON MSpecimen moderately ictericBASIC METABOLIC [id number] 05:15:00 Test Item Value Reference Range Interpretation [...] S NOT APPLICABLE FOR DIALYSIS PATIEN TS. Inspector Electromechanical ID - DALTON MSpecimen moderately ictericPROTHROMBIN TIME/[id number] 04:37:00 Test Item Value Reference Range Interpretation [...] Detected Not Detected, (test code = Negative 03666-3) SARS-COV-2 [facility] PERFORMING LAB (test code = 65297-5) VALENTE (test code = Negative results do [...] of the Act. Fact Sheet for Healthcare Providers:https://www.[employer]/Documents/Xper t%20Xpress%20SARS%20CoV- 2/Fact%20Sheets/302-3802 %63JBUZ-HHE-9%20HEALTHCA RE%20PROVIDERS%20FACT%20 SHEET.pdf Fact Sheet for Healthcare Patients:https://www.[employer]/Documents/Xpert %20Xpress%20SARS%20CoV-2 /Fact%20Sheets/302-3801% 65UMRP-RRA-7%20PATIENT%2 0FACT%20SHEET.pdf Performing Laboratory:[facility] [place] [id number] [place], [place] [address]ARS-COV2/RT-PCR ([facility])2020-01-15 01:48:00 Test Item Value Reference Range Interpretation Comments SARS-COV2/RT-PCR (test Not Detected Not Detected, Negative code = 6542453) SARS-COV-[address] [facility] (test code = 7100232) Negative results do not preclude SARS-CoV-2 infection [...] of the Act.Fact Sheet for Healthcare Pro viders:https://www.[employer]/Documents/Xpert%20Xpress%20SARS%20CoV-2/Fact%20Sh eets/302-3802%56PUQK-SXK-2%20HEALTHCARE%20PROVIDERS%20FACT%20SHEET.pdfFact Sheet for Healthcare Patients:https://www.[employer]/Documents/Xpert%20Xpress%20SARS%20CoV-2/Fact%20Sheets/302-3801%20SARS-COV -2%20PATIENT%20FACT%20SHEET.pdfPerforming Laboratory:[facility], [place] [address]AKPLS METABOLIC [id number] 22:40:00 Test Item Value Reference Range Interpretation [...] S NOT APPLICABLE FOR DIALYSIS PATIEN TS. Inspector Electromechanical ID - DBSpecimen moderately ictericHEPATIC FUNCTION [id number] 22:39:00 Test Item Value Reference Range Interpretation [...] Specimen slightly (test code = 347) hemolyzed Inspector Electromechanical ID - DBSpecimen moderately ictericPROTHROMBIN [id number] 22:28:00 Test Item Value Reference Range Interpretation [...] mechanical heart valves.CBC W/PLT COUNT & AUTO [id number] 22:22:00 Test Item Value Reference Range Interpretation [...] code = 2801) ALPHA FETOPROTEIN (AFP), TUMOR [id number] 18:31:00 Test Item Value Reference Range Interpretation Comments ALPHA-FETOPROTEIN (BEAKER) (test code < ng/mL <10.0 = 1094) Inspector Electromechanical ID - DBBASIC METABOLIC [id number] 15:23:00 Test Item Value Reference Range Interpretation [...] S NOT APPLICABLE FOR DIALYSIS PATIEN TS. Inspector Electromechanical ID - BSPlease sent STATSpecimen moderately ictericHEPATIC FUNCTION [id number] 15:18:00 Test Item Value Reference Range Interpretation [...] (test code = 17 U/L 6-55 347) Inspector Electromechanical ID - BSPlease sent STATSpecimen moderately ictericPROTHROMBIN [...] for patients wiht mechanical heart valves.Please sent [facility] W/PLT COUNT & AUTO [id number] 15:05:00 Test Item Value Reference Range Interpretation [...] (BEAKER) (test code = 2801) CT, ABDOMEN, [id number] 15:58:00Referring: Dr. Reno SweattFINAL REPORT CT OF [...] MDReport Verified Date/Time: 05/02/2017 15:58:35 Reading Location: [facility] C013Y CT Body Reading Room CBC W/PLT COUNT & AUTO [id number] 17:30:00 Test Item Value Reference Range Interpretation [...] code = 417) 0.00ALPHA FETOPROTEIN (AFP), TUMOR [id number] 16:31:00 Test Item Value Reference Range Interpretation Comments ALPHA-FETOPROTEIN (BEAKER) (test 3.3 ng/mL <10.0 code = 1094) Effective 06/14/2014: Reference Range ChangeNew: <10.0 Previous: 0.0-8.0 BASIC METABOLIC [id number] 16:13:00 Test Item Value Reference Range Interpretation [...] FOR DIALYSIS PATIEN TS. Specimen slightly ictericLIPID [id number] 16:13:00 Test Item Value Reference Range Interpretation [...] Very High >=190 Specimen slightly ictericHEPATIC FUNCTION [id number] 16:13:00 Test Item Value Reference Range Interpretation [...] (test code = 364) Specimen slightly ictericPROTHROMBIN [id number] 16:13:00 Test Item Value Reference Range Interpretation [...]
--- NOTE | 2020-06-07 10:21 | RAD REPORT ---
EXAM DESCRIPTION: US - Paracentesis Proc Guidance - 06/07/2020 10:14 am CLINICAL HISTORY: ASCITES Ascites COMPARISON: Paracentesis Proc Guidance dated 05/26/2020 FINDINGS: Informed consent was obtained and time-out was performed. Patient's abdomen was prepped and draped in the usual sterile fashion. 1% lidocaine was used for loca l anesthetic purposes. A small skin incision was made along the right lower quadrant. A paracentesis catheter was guided int o the peroneal cavity under sonographic guidance. A small amount of fluid was sent for requested lab studies. A large volume paracentesis was performed . The patient tolerated the procedure well. Patient was administered IV albumin per protocol following the procedure. IMPRESSION: Successful ultrasound-guided paracentesis.
[2020-06-07] MEDS ORDERED: ALBUMIN HUMAN 25% 300 ML IV ONE (10:51)
[2020-06-07 11:52] VITALS: TEMP 98; BMI 31.6
[2020-06-07 12:05] LABS: Body Fluid Source PERITONEAL
[2020-06-07 12:12] LABS: Appearance SLT. TURBID (CLEAR); Body Fluid WBC 62 /mm^3; Color of fluid Yellow (COLORLESS)
[2020-06-07 12:49] VITALS: BP 109/38; O2SAT 100
== END 2020-06-07 11:35 | disposition home or self-care (01) ==
LOC: DS 08:15
PROVIDERS: ATTEND Internal Medicine Gastroenterology
PROC: 0W9G3ZZ Drainage of Peritoneal Cavity, Percutaneous Approach (ICD-10-PCS; principal; 2020-06-07)
DX: R18.8 Other ascites (principal)
CPT/HCPCS: 87070; 36415 ×2; 89050; 85049; 85610; 85730; 87077; 87186; 96365; 49083; P9047

== ENCOUNTER 2020-06-21 07:31 | Day surgery (SDC) | payer OTHER ==
--- OUTSIDE RECORDS SUMMARY | 2020-06-21 07:45 | XMS REPORT | Clinical Summary ---
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
--- OUTSIDE RECORDS SUMMARY | 2020-06-21 07:49 | XMS REPORT | Clinical Summary ---
:1955 Author Organization [facility] Address [address] [place] [address] Care Team Providers Name Role Phone Zeinab [...] Encounters Date Type Specialty Care Team Description 06/14/2020 Documentation Transplant Hepatology Cary Talley RN 06/13/2020 Orders Only Transplant Hepatology Cary Talley Pre- transplant evaluation for liver transplant; R RN 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, unspecified hepatic cirrhosis type (HCC) 06/09/2020 Telephone Transplant Hepatology Cary Talley labs due R RN 06/01/2020 Telephone Transplant Hepatology Lizz Shine O jesu Vila 05/29/2020 Orders Only Transplant HepatCary Estrada Pre- transplant evaluation for liver transplant; R, RN 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, unspecified hepatic cirrhosis type (HCC) 05/25/2020 Telephone Central Scheduling Chris Shine 05/25/2020 Telephone Transplant Hepatology Rosio Shine 05/23/2020 Telephone Transplant Hepatology Lizz Shine O jesu Vila 05/23/2020 Orders Only Transplant Hepatology David Pre-tr ansplant evaluation for liver transplant; Tata Ledesma 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, unspecified hepatic cirrhosis type (HCC) 05/15/2020 Orders Only Transplant Hepatology Cary Talley Pre- transplant evaluation for liver transplant; R, RN 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, unspecified hepatic cirrhosis type (HCC) 05/15/2020 Documentation Transplant Hepatology Enmanuel Shinelee 05/10/2020 Documentation Transplant Hepatology Cary Talley RN 05/09/2020 Documentation Transplant Hepatology Tata Hernandez 05/09/2020 Orders Only Transplant Hepatology David, Pre-tr ansplant evaluation for liver transplant; Mariaelena 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, unspecified hepatic cirrhosis type (HCC) 05/05/2020 Documentation Transplant Hepatology Hamilton, Micheyl 05/03/2020 Documentation Transplant Hepatology Cary Talley RN 05/02/2020 Documentation Transplant Hepatology Hamilton, Micheyblake 04/20/2020 Documentation Transplant Hepatology Hamilton, Micheyl 04/18/2020 Documentation Transplant Hepatology DavidTata E 04/18/2020 Documentation Transplant Hepatology Cary Talley RN 04/18/2020 Documentation Transplant Hepatology David, Mariaelena 04/18/2020 Documentation Transplant Hepatology David, Mariaelena 04/18/2020 Telephone Transplant Hepatology Cary Talley RN 04/17/2020 Orders Only Transplant Hepatology Cary [...] Transplant Hepatology Hamilton, Micheyl 04/11/2020 Hospital Encounter Kristofer Cross Cirrhosis of liver without ascites, unspecified hepatic [...] Talley RN 04/10/2020 Documentation Transplant Hepatology Hamilton, Micheyblake 04/10/2020 Documentation Transplant Hepatology Hamilton, Micheyl 04/10/2020 Orders Only Transplant Hepatology Cary Talley Cirr hosis of liver without ascites, unspecified hepatic cirrhosis type (HCC) (Primary Dx); R, RN Awaiting organ transplant status; Screening for m alignant neoplasm 04/06/2020 Telephone Hepatology José Sahni H, MA 03/20/2020 Documentation Transplant Hepatology Hamilton, Micheyl 03/14/2020 Documentation Transplant Hepatology Cary Talley R RN 03/10/2020 Orders Only Transplant HepatCary Estrada Pre- transplant [...] for liver transplant 02/15/2020 Follow-Up Transplant Hepatology Jalal, Prasun Cirrh osis of liver without ascites, unspecified [...] Areli Hein, FRANCISCA 02/14/2020 Documentation Transplant Hepatology Alfonso Jose Miguelsuresh 02/11/2020 Telephone Hepatology Dai Rios MA (confirm) [...] Orders Only Hepatology Larry, Line Hepatic Kastrup, 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) 02/03/2020 Documentation Hepatology Kristofer Cross MD 02/02/2020 Telephone Transplant Hepatology Cary Talley R RN 02/01/2020 UNOS Charge Visit Transplant Hepatology Rito Saini irrhosis of liver Ildefonso Spencer MD without ascites , unspecified hep atic cirrhosis type (HCC) 02/01/2020 Documentation Transplant Hepatology Alfonso, Jose Migueleyl 02/01/2020 Abstract Transplant Hepatology Cary Talley R RN 02/01/2020 Telephone Hepatology PRIOR ITZEL Craven (CHRISTIANOF JASON) Kimmie 02/01/2020 Orders Only Transplant Hepatology Cary Talley Pre- transplant evaluation for liver transplant (Primary Dx); R, RN 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, unspecified hepatic cirrhosis type (HCC) 02/01/2020 Telephone Transplant Hepatology Cary Talley Labs Only R, RN 01/31/2020 Documentation Intensive Care Dex-Leo Atwood Conrad 01/31/2020 Documentation Transplant Hepatology Cary Talley [...] ANGIOS (+/- LV) 01/18/2020 Outside Orders Radiology Tameka, Mitzy Arriola, COMMUNICATION EQUIPMENT MECHANIC 01/17/2020 Anesthesia Event Gastroenterology Agatha Lr MD Vences, Wendy Diaz, CRNA 01/17/2020 Surgery Gastroenterology Sylvie George UPPER [...] Line Obesity (BMI 35.0-39.9 without comorbidity); Kastrup, COMMUNICATION EQUIPMENT MECHANIC Adrenal mass, l eft ; Screening for m alignant neoplasm; Elevated serum creatinine; Other ascites 12/31/2019 Telephone Hepatology Dai Healy MA 12/21/2019 Documentation Hepatology Larry, Line Kastrup, COMMUNICATION EQUIPMENT MECHANIC 12/17/2019 Abstract Hepatology Ivanna Healy MA 12/16/2019 Abstract Hepatology Janna Aparicio RN 12/16/2019 Abstract Hepatology Janna Aparicio RN 12/16/2019 Abstract Hepatology Janna Aparicio RN 12/15/2019 Audio - Hepatology Larry, Line Portal hypert ension (Primary Dx); Telemedicine Kastrup, COMMUNICATION EQUIPMENT MECHANIC 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); Obesity (BMI 35 .0-39.9 without comorbidity); Adrenal mass, l eft ; Screening for m alignant neoplasm 12/14/2019 Telephone Hepatology José Sahni Appointment AMRIT [place] after 06/21/2019 Family History Medical History Relation Name Comments [...] 07/11/2020 Appointment Radiology Kristofer Cross MD [address] [address] [phone] 07/11/2020 Follow-Up Transplant Hepatology Whitney Cross MD [address] [address] 0 [phone] Health Maintenance Due Date Last Done Comments BREAST CANCER SCREENING 1955 CERVICAL CANCER SCREENING PAP ONLY (Age 1207/08/1976 21-65) PNEUMOCOCCAL 65+ YRS (2 of 2 - PPSV23) 2019 0, 02/23/2020 Medicare IPPE (WELCOME TO MEDICARE) 07/28/2019 INFLUENZA VACCINE (#1) 2020 LIPID PANEL 01/14/2023 01/15/2020, 10/23/2016 COLON CANCER SCREENING COLONOSCOPY 01/16/2030 01/17/2020 Procedures Procedure Name Priority Date/Time Associated Comments Diagnosis BILIRUBIN, DIRECT STAT 06/13/2020 12:36 Pre-transplant Resu lts for this PM ALUMINUM CAN COLLECTOR evaluation for procedure are in liver transplant the results Cirrhosis of liver section. without ascites, unspecified hepatic cirrhosis type (HCC) CBC W/PLT COUNT & STAT 06/13/2020 12:36 Pre-transplant Resu lts for this AUTO DIFFERENTIAL PM ALUMINUM CAN COLLECTOR evaluation for procedur e are in liver transplant the results Cirrhosis of liver section. without ascites, unspecified hepatic cirrhosis type (HCC) COMPREHENSIVE STAT 06/13/2020 12:36 Pre-transplant Results for this METABOLIC PANEL PM ALUMINUM CAN COLLECTOR evaluation for procedure are in liver transplant the results Cirrhosis of liver section. without ascites, unspecified hepatic cirrhosis type (HCC) PROTHROMBIN TIME/INR STAT 06/13/2020 12:36 Pre-transplant R esults for this PM ALUMINUM CAN COLLECTOR evaluation for procedure are in liver transplant the results Cirrhosis of liver section. without ascites, unspecified hepatic cirrhosis type (HCC) BILIRUBIN, DIRECT STAT 05/17/2020 1:41 Pre-transplant Resu [...] procedure are i n the results section. [id number] AP Routine 01/19/2020 9:43 PHENOTYP PM CDT [...] 452 ms QTC Calculation(Bazett) 458 ms P Blair 59 degrees R Blair 32 degrees T Blair 56 degrees Normal sinus rhythm Normal ECG [...] procedure are i n the results section. [id number]\\, Routine 01/15/2020 4:17 Re sults for this [...] are i n the results section. SARS-COV2/RT-PCR ([facility] STAT 01/14/2020 7:28 R esults for [...] results hepatic cirrhosis section. type (HCC) after 06/21/2019 Results Prothrombin time/INR (06/13/2020 12:36 PM ALUMINUM CAN COLLECTOR)Only the most recent of25 results within the time period is included. Pathologist Sig nature INR 1.2 (H) [facility] Comment: Reference Range 0.9-1.1 Moderate-intensity Warfarin Therapy 2.0-3.0 Higher-intensity Warfarin Therapy 3.0-4.0 PT 11.9 (H) 9.0 - 11.5 sec [facility] Comment: For additional information, please refer to http://education.Acompli.Push Health/faq/GBH126 (This link is being provided for informational/ educational purposes only.) Specimen Blood Narrative Performed At FASTING: NO [facility] Resulting Agency Comment Performing Organization Information: Site ID: [id number] Name: [facility] Address: [address] [place] [phone] Director: Jj Carrasco Performing Organization Address City/State/Zipcode Phone Number [facility] [address] [facility] [place] [address] [facility] CBC with platelet count + automated diff (06/13/2020 12:36 PM ALUMINUM CAN COLLECTOR)Only the most recent of9 resultswithin the time period is included. Pathologist Sig nature WBC 5.3 3.8 - 10.8 [facility] Thousand/uL RBC 2.43 (L) 3.80 - 5.10 [facility] Million/uL Hemoglobin 8.8 (L) 11.7 - 15.5 g/dL [facility] Hematocrit 24.8 (L) 35.0 - 45.0 % [facility] MCV 102.1 (H) 80.0 - 100.0 fL [facility] MCH 36.2 (H) 27.0 - 33.0 pg [facility] MCHC 35.5 32.0 - 36.0 g/dL [facility] RDW 13.7 11.0 - 15.0 % [facility] Comment: Hypochromasia 1 + Macrocytosis 1 + Platelets 58 (L) 140 - 400 [facility] Comment: Thousand/uL Review of the peripheral smear reveals decreased numbers of platelets. MPV 10.7 7.5 - 12.5 fL [facility] # Neutros 3,191 1,500 - 7,800 [facility] cells/uL # Lymphs 949 850 - 3,900 [facility] cells/uL # Monos 615 200 - 950 [facility] cells/uL # Eos 514 (H) 15 - 500 [facility] cells/uL # Baso 32 0 - 200 cells/uL [facility] % Neutros 60.2 % [facility] % Lymphs 17.9 % [facility] % Monos 11.6 % [facility] % Eos 9.7 % [facility] % Baso 0.6 % [facility] Comment(s) [facility] Comment: Review of peripheral smear confirms automated results. Specimen Blood Narrative Performed At FASTING: NO [facility] Resulting Agency Comment Performing Organization Information: Site ID: [id number] Name: [facility] Address: [address] [place] [address], [place] [address] Director: Jj Cararsco Performing Organization Address City/[facility]/Zipcode Phone Number [facility] [address] [facility] [place] [address] [facility] Bilirubin, direct (06/13/2020 12:36 PM ALUMINUM CAN COLLECTOR)Only the most recent of12 results within the time period is included. Pathologist Sig nature Bilirubin, Total 4.0 (H) 0.2 - 1.2 mg/dL [facility] Bilirubin, Direct 1.3 (H) < OR = 0.2 mg/dL [facility] Bilirubin, Indirect 2.7 (H) 0.2 - 1.2 mg/dL (calc) [facility] Specimen Blood Narrative Performed At FASTING: NO [facility] Resulting Agency Comment Performing Organization Information: Site ID: [id number] Name: [facility] Address: [address] [place] [address] [place] [address] Director: Jj Carrasco Performing Organization Address City/State/Zipcode Phone Number [facility] [address] [place] [address] [facility] Comprehensive metabolic panel (06/13/2020 12:36 PM ALUMINUM CAN COLLECTOR)Only the most recent of16 resultswithin the time period is included. Glucose 98 65 - 139 [facility] Comment: mg/dL Non-fasting reference interval BUN 36 (H) 7 - 25 mg/dL [facility] Creatinine 2.03 (H) 0.50 - 0.99 [facility] Comment: mg/dL For patients >49 years of age, the reference limit for Creatinine is approximately 13% higher for people identified as -Latvian. eGFR If NonAfricn 25 (L) > OR = 60 [facility] Am mL/min/1.73m2 eGFR If Africn Am 29 (L) > OR = 60 [facility] mL/min/1.73m2 BUN/Creatinine 18 6 - 22 (calc) [facility] Ratio Sodium 137 135 - 146 [facility] mmol/L Potassium, Serum 4.3 3.5 - 5.3 [facility] mmol/L Chloride 107 98 - 110 [facility] mmol/L Carbon Dioxide, 23 20 - 32 [facility] Total mmol/L Calcium, Serum 11.1 (H) 8.6 - 10.4 [facility] mg/dL Protein, Total, 5.6 (L) 6.1 - 8.1 [facility] Serum g/dL Albumin 3.3 (L) 3.6 - 5.1 [facility] g/dL GLOBULIN ([facility]) 2.3 1.9 - 3.7 [facility] g/dL (calc) Albumin Globulin 1.4 1.0 - 2.5 [facility] Ratio (calc) Bilirubin, Total 4.0 (H) 0.2 - 1.2 [facility] mg/dL Alkaline 91 37 - 153 U/L [facility] Phosphatase, S AST (SGOT) 27 10 - 35 U/L [facility] ALT (SGPT) 12 6 - 29 U/L [facility] Specimen Blood Narrative Performed At FASTING: NO [facility] Resulting Agency Comment Performing Organization Information: Site ID: [id number] [facility]: [facility] Address: [address] [place] [phone] Director: Jj Carrasco Performing Organization Address [facility] Phone Number [employer] [address] [place] [address] [facility] PLATELET ESTIMATION (05/02/2020 1:25 PM CDT)Only the most recent of3 results within the time period is included. Pathologist Sig nature Platelet Estimate DECREASED (A) ADEQUATE [facility] Specimen Narrative Performed At FASTING:NO [facility] FASTING: NO Resulting Agency Comment Performing Organization Information: Site ID: [id number] Name: [facility] Address: [address] [place] [phone] Director: Jj Carrasco Performing Organization Address [facility] Phone Number [employer] [address] [place] [address] [facility] XR dxa bone density study (04/11/2020 11:51 AM CDT) Specimen Narrative Performed At FINAL REPORT [facility] Bone density study, 04/11/2020 Clinical History: Screening [...] Report Verified Date/Time: 04/11/2020 13:34:32 Reading Location: [address] Re ading Room Procedure Note Interface, [...] Verified Date/Time: 04/11/2020 1 3:34:32 Reading Location: [address] Mammo Re ading Room Performing Organization Address City/State/Zipcode Phone Number [facility] CBC with platelet count + automated diff (04/11/2020 11:13 AM CDT)Only the most recent of16 resultswithin the time period is included. Pathologist Sig nature WBC 3.5 3.5 - 10.5 [facility] K/L [facility] RBC 2.51 (L) 3.93 - 5.22 [facility] M/L [facility] Hemoglobin 9.4 (L) 11.2 - 15.7 [facility] GM/DL [facility] Hematocrit 30.2 (L) 34.1 - 44.9 % [facility] MCV 120.3 (H) 79.4 - 94.8 fL [facility] MCH 37.5 (H) 25.6 - 32.2 pg [facility] MCHC 31.1 (L) 32.2 - 35.5 [facility] GM/[facility] RDW 14.6 (H) 11.7 - 14.4 % [facility] Platelets 57 (L) 150 - 450 K/CU [facility] MPV 10.4 9.4 - 12.3 fL [facility] nRBC 0 0 - 0 /100 WBC [facility] % Neutros 60 % [facility] % Lymphs 19 % [facility] % Monos 12 % [facility] % Eos 8 % [facility] % Baso 1 % [facility] # Neutros 2.09 1.56 - 6.13 [facility] # Lymphs 0.67 (L) 1.18 - 3.74 [facility] # Monos 0.43 (H) 0.24 - 0.36 [facility] # Eos 0.28 0.04 - 0.36 [facility] K/L [facility] # Baso 0.02 0.01 - 0.08 [facility] K/L [facility] Immature 0 0 - 1 % [facility] Granulocytes-Relativ [facility] Specimen Blood Performing Organization Address City/[facility]/Zipcode Phone Number [address] [address] CENTER Alpha fetoprotein (AFP), tumor marker (04/11/2020 11:13 AM CDT)Only the most recent of3 resultswithin the time period is included. Pathologist Sig nature Alpha-Fetoprotein <2.0 <10.0 ng/mL [facility] Specimen Blood Narrative Performed At Med Admin ID - BS [facility] Performing Organization Address City/[facility]/Zipcode Phone Number [address] [address] CENTER Miscellaneous lab test (02/15/2020 12:29 PM CDT)Only the most recent of2 results within the time period is included. Pathologist Sig nature Scan Result [facility] Specimen Blood Narrative Performed At This result has an attachment that is no t available. Performing Organization Address City/State/Zipcode Phone Number [facility] [id number] [place], [place] Magnesium (02/15/2020 12:29 PM CDT)Only the most recent of13 resultswithin the time period is included. Pathologist Sig nature Magnesium 1.8 1.6 - 2.6 mg/dL [facility] Specimen Blood Narrative Performed At Med Admin ID - LM [facility] Performing Organization Address City/State/Zipcode Phone Number [facility] [address] [place] [address] CENTER RHYTHM STRIP - SCAN [...] analytical performance characteristics have been determined by [facility]. It has not been cleared or approved by FDA. This assay has been validated pursuant to the CLIA regulations and is used for clini steven purposes. Normetanephrine 213 (H) < OR = 148 [facility] Comment: pg/mL INCORPORATED This test was developed and its analytical performance characteristics have been determined by [facility]. It has not been cleared or approved [...] Plasma Fractionated Metanephrines for Pheochromocytoma. The J ournal of Clinical Endocrinology and Metabolism 93 (1),91-95, 2008. For additional information, please refer to http://education.Cinemur/faq/MetFractFree (This link is being provided for informational/educati onal purposes only.) This test was developed and its analytical performance characteristics have been determined by [facility]. It has not been cleared or approved by FDA. This assay has been validated pursuant to the CLIA regulations and is used for clini steven purposes. Specimen Blood Narrative Performed At Performing Lab [facility] [address] [place] [address] Mark Encarnacion MD, PhD, AMINA Performing Organization Address City/[facility]/Zipcode Phone Number [place] [address] INCORPORATED [address] [facility] Calcium, Ionized (01/26/2020 3:50 AM CDT)Only the most recent of7 resultswithin the time period is included. Pathologist Sig nature Calcium, Ion 1.11 (L) 1.12 - 1.27 mmol/L [facility] pH, Blood 7.41 [facility] Specimen Blood Performing Organization Address [facility] Phone Number [facility] [address] [place] [address] CENTER Phosphorus (01/26/2020 3:50 AM CDT)Only the most recent of7 resultswithin the time period is included. Pathologist Sig nature Phosphorus 3.2 2.3 - 4.7 mg/dL [facility] Specimen Blood Narrative Performed At Med Admin ID - BS [facility] Performing Organization Address City/[facility] Cent[facility] Phone Number [facility] [address] [place] [address] CENTER Hepatic function panel (01/26/2020 3:50 AM CDT)Only the most recent of13 resultswithin the time period is included. Pathologist Sig nature Protein, Total 5.7 (L) 6.0 - 8.3 gm/dL [facility] Albumin 3.4 (L) 3.5 - 5.0 g/dL [facility] Total Bilirubin 6.9 (H) 0.2 - 1.2 mg/dL [facility] Bilirubin, Direct 2.2 (H) 0.1 - 0.5 mg/dL [facility] Alkaline Phosphatase 58 40 - 150 U/L [facility] AST 36 (H) 5 - 34 U/L [facility] ALT 13 6 - 55 U/L [facility] Specimen Blood Narrative Performed At Med Admin ID - BS [facility] Specimen moderately icteric Performing Organization Address City/State/Zipcode Phone Number [facility] [address] [place] [address] CENTER Manual Differential (01/25/2020 3:47 AM CDT)Only the most recent of7 results within the time period is included. Pathologist Sig nature % Neutros 66 % [facility] % Lymphs 24 % [facility] % Monos 7 % [facility] % Eos 2 % [facility] % Metamyelo 1 (H) 0 - 0 % [facility] # Neutros 0.92 (L) 1.56 - 6.13 K/ul [facility] # Lymphs 0.34 (L) 1.18 - 3.74 K/ul [facility] # Monos 0.10 (L) 0.24 - 0.36 K/uL [facility] # Eos 0.03 (L) 0.04 - 0.36 K/uL [facility] # Metamyelo 0.01 (H) 0.00 - 0.00 K/uL [facility] Total Counted 100 [facility] Smudge Cells Present [facility] Giant Platelet Present [facility] Anisocytosis 2+ moderate [facility] Macrocytes 2+ moderate [facility] Poikilocytes 2+ moderate [facility] [place] Cells 2+ moderate [facility] Artifact Present [facility] Platelet Conc Decreased [facility] Specimen Blood Narrative Performed At Med Admin ID - [id number] [facility] Med Admin ID - Maria Del Carmen Anguiano User comments: Slide comments: Performing Organization Address City/State/Zipcode Phone Number [facility] [address] [place] [address] [place] Basic Metabolic Panel (01/25/2020 3:47 AM CDT)Only the most recent of10 results within the time period is included. Sodium 140 136 - 145 meq/L [facility] Potassium 3.4 (L) 3.5 - 5.1 meq/L [facility] Chloride 105 98 - 107 meq/L [facility] CO2 25 22 - 29 meq/L [facility] BUN 31 (H) 7 - 21 mg/dL [facility] Creatinine 2.35 (H) 0.57 - 1.25 [facility] mg/dL [facility] Glucose 108 (H) 70 - 105 mg/dL [facility] Calcium 8.7 8.4 - 10.2 [facility] mg/dL [facility] EGFR 21Comment: ESTIMATED mL/min/1.73 sq [facility] GFR IS NOT m [facility] [place] CREATININE CLEARANCE IN PREDICTING GLOMERULAR FILTRATION RATE. ESTIMATED GFR IS NOT APPLICABLE FOR DIALYSIS PATIENTS. Specimen Blood Narrative Performed At Med Admin ID - PIAYA L [facility] Specimen moderately icteric Performing Organization Address City/[facility]/Zipcode Phone Number [facility] [address] [place] [address] [place] TRANSFUSION SERVICE REPORT - SCAN (01/24/2020 6:00 [...] CDT) Narrative Performed At Epifanio Giles RRT, [facility] 01/24/20 10:52 AM [facility] PFT CHARTING REPORT Infection Control/Hand Hygiene procedure s followed throughout the encounter with patient: Yes Patient Identification Method: Patient n celia verified on armband, and Medical record on armband, Is the order complete?: Yes Account ID#: [id number] Patient Name: Cici Calderon Birthdate: 1955 Age: [...] CDT) Narrative Performed At Epifanio Giles RRT, [facility] 01/24/20 10:52 AM [facility] PFT CHARTING REPORT Infection Control/Hand Hygiene procedure s followed throughout the encounter with patient: Yes Patient Identification Method: Patient n celia verified on armband, and Medical record on armband, Is the order complete?: Yes Account ID#: [id number] Patient Name: Cici Calderon Birthdate: 1955 Age: [...] CDT) Narrative Performed At Epifanio Giles, [place], [facility] 01/24/20 10:52 AM [facility] PFT CHARTING REPORT Infection Control/Hand Hygiene procedure s followed throughout the encounter with patient: Yes Patient Identification Method: Patient n celia verified on armband, and Medical record on armband, Is the order complete?: Yes Account ID#: [id number] Patient Name: Cici Calderon Birthdate: 1955 Age: [...] CDT) Narrative Performed At Janina Meehan RRT, [facility] 01/24/20 20 2:39 PM [facility] PFT CHARTING REPORT Infection Control/Hand Hygiene procedure s followed throughout the encounter with patient: Yes Patient Identification Method: Patient n celia verified on armband, and Medical record on armband, Is the order complete?: Account ID#: [id number] Patient Name: Cici Calderon Birthdate: 1955 Age: [...] ABO A Pos SAFETRACE TX UNIT NUMBER [id number] SAFETRACE TX Status TX_TIMEINCHART SAFETRACE TX Blood Bank Product RED BLOOD CELLS SAFETRACE [place] PRODUCT CODE [id number] SAFETRACE [place] Specimen Other Performing Organization Address City/State/Zipcode Phone Number SAFETRACE [place] B-type Natriuretic Factor (BNP) (01/23/2020 4:32 AM CDT)Only the most recent of 2 resultswithin the time period is included. Pathologist Sig dima BNP 2,179 (H) 0 - 100 pg/mL [facility] Specimen Blood Narrative Performed At Med Admin ID - PIAYA L [facility] Performing Organization Address City/State/Zipcode Phone Number [facility] MEDICAL [address] [place] [address] CENTER Prepare Leuko-Red PLT (01/22/2020 11:54 PM CDT)Only the most recent of2 results within the time period is included. Pathologist Sig nature Unit ABO A Pos SAFETRACE TX UNIT NUMBER [id number] SAFETRACE TX Status WORK IN PROGRESS SAFETRACE TX Blood Bank Product PLATELETS SAFETRACE TX PRODUCT CODE [id number] SAFETRACE TX Unit ABO O Pos SAFETRACE TX UNIT NUMBER [id number] SAFETRACE TX Status TX_TIMEINCHART SAFETRACE TX Blood Bank Product PLATELETS SAFETRACE TX PRODUCT CODE [id number] SAFETRACE [place] Specimen Blood Performing Organization Address [facility] Phone Number SAFETRACE TX Transfuse Leuko-Red RBC (01/22/2020 2:30 PM CDT)Only the most recent of2 resultswithin the time period is included.Cortisol (01/22/2020 8:23 AM CDT)Only the most recent of2 resultswithin the time period is included. Pathologist Sig nature Cortisol, Total 1.6 (L) 3.7 - 19.4 ug/dL [facility] Specimen Blood Narrative Performed At Med Admin ID - PIAYA L [facility] Performing Organization Address [facility] Phone Number [address] [address] CENTER ABORH, manual (01/22/2020 4:34 AM CDT) Pathologist Sig nature ABO Grouping A [facility] Rh Factor POS [facility] [place] Specimen Blood Performing Organization Address [facility] Phone Number [address] [address] Direct AHG (RAMIREZ)/Direct Jewel (01/22/2020 4:34 AM CDT) Pathologist Sig nature Direct AHG-IGG NEGATIVE [facility] Direct AHG-C3B, C3D NEGATVIE [facility] [place] Specimen Blood Performing Organization Address [facility] Centercode Phone Number [address] [address] Body fluid culture + gram stain (01/21/2020 4:54 PM CDT) Result No growth [facility] Gram Stain Result <1+ White blood [facility] cells seen [facility] Gram Stain Result No organisms seen [facility] Specimen Body Fluid - Ascites (disorder) Performing Organization Address City/[facility]/Zipcode Phone Number [facility] [address] [place] [address] [place] Body fluid cell count with differential (01/21/2020 4:54 PM CDT) Appearance Hazy (A) Clear [facility] Color Cele (A) Colorless, [facility] RBCs 4,000 (H) <=1 /cu mm [facility] Adjusted WBC Count 86 (H) <=5 /cu mm [facility] Lining Cells 1 <=1 /cu mm [facility] % Segs 7 % [facility] % Lymphs 83 % [facility] % Monos 10 % [facility] % Eos 0 % [facility] % Baso 0 % [facility] Container Body Fluid Sterile Vial [facility] Specimen Body Fluid - Ascites (disorder) Performing Organization Address City/[facility] Cent[facility] Phone Number [facility] [address] [place] [address] [place] US paracentesis (01/21/2020 4:40 PM CDT) Specimen Narrative Performed At FINAL REPORT [facility] Ultrasound guided paracentesis Clinical History: Ascites. Sedation: None. Gis Scientist: Christine Ward PA-C Supervising Physician: Natan Chisholm MD Complaint Evaluation Supervisor: None. Estimated Blood Loss: < 1 mL. [...] anesthesia was achieved with lidocaine, a 5 Syriac one-step catheter was advanced into the peritoneal cavity under ultrasound guidance. After completion of drainage, the cathet er was removed. There was no evidence of complication. Impression: Successful ultrasound guided paracentesi s. Signed: Natan Chisholm MD Report Verified Date/Time: 01/24/2020 09:43:05 Reading Location: [facility] [id number] [facility] Emergency Department Reading Room Procedure Note Interface, External Ris In - 01/24/2020 9:45 AM CDT FINAL REPORT Ultrasound guided paracentesis Clinical History: Ascites. Sedation: None. Gis Scientist: Christine Ward PA-C Supervising Physician: Natan Chisholm MD Complaint Evaluation Supervisor: None. Estimated Blood Loss: < 1 mL. [...] anesthesia was achieved with lidocaine, a 5 Syriac one-step catheter was advanced into the peritoneal cavity under ultrasound guidance. After completion of drainage, the cathet er was removed. There was no evidence of complication. Impression: Successful ultrasound guided paracentesi s. Signed: Natan Chisholm MD Report Verified Date/Time: 01/24/2020 0 9:43:05 Reading Location: [facility] [id number] Ultrasoun d Reading Room Performing Organization Address City/State/Zipcode Phone Number GE [facility] Peripheral Blood Smear - Hold only (01/21/2020 9:31 AM CDT) Pathologist Sig nature Peripheral Smear Save saved [facility] Specimen Blood Performing Organization Address City/[facility]/Zipcode Phone Number [address] [phone] CENTER Reticulocyte count (01/21/2020 9:31 AM CDT)Only the most recent of2 results within the time period is included. Pathologist Sig nature % Retic 5.3 (H) 0.5 - 1.7 % [facility] Specimen Blood Narrative Performed At Med Admin ID - [id number] [facility] Performing Organization Address [facility]x Phone Number [address] [phone] [place] XR chest 1 view portable / bedside (01/21/2020 9:10 AM CDT)Only the most recent of2 resultswithin the time period is included. Specimen Narrative Performed At FINAL REPORT [facility] INDICATION: Edema COMPARISON: January 20, 2020 [...] Report Verified Date/Time: 01/21/2020 10:03:32 Reading [facility] Procedure Note Interface, External [...] Verified Date/Time: 01/21/2020 1 0:03:32 [facility] Performing Organization Address City/State/Zipcode Phone Number GE [facility] Metanephrines, 24 hour urine (01/20/2020 10:51 PM CDT) TOTAL VOLUME 1000 mL [facility] [employer] Metanephrine 205 90 - 315 [facility] Comment: mcg/24 h INCORPORATED This test was developed and its analytical performance characteristics have been determined by [facility] [place]. It has not been cleared or approved by FDA. This assay has been validated pursuant to the CLIA regulations and is used for clini steven purposes. Normetanephrine 651 122 - 597 [facility] Comment: mcg/24 h INCORPORATED This test was developed and its analytical performance characteristics have been determined by [facility] [place]. It has not been cleared or approved [...] analytical performance characteristics have been determined by [facility] [place]. It has not been cleared or approved by FDA. This assay has been validated pursuant to the CLIA regulations and is used for clini steven purposes. Specimen Urine Narrative Performed At Performing Lab [facility] EZ en-Gauge [facility] [place] [address] [place] [address] Mark Encarnacion MD, PhD, AMINA Performing Organization Address City/State/Zipcode Phone Number [facility] [place] [address] [facility] [address] Catecholamines, Fractionated, 24hr urine (01/20/2020 10:51 PM CDT) TOTAL VOLUME 1000 mL [facility] INC[facility]ATED Epinephrine,24 Hr Ur <2 (L) 2 - 24 [facility] Comment: mcg/24 h INCORPORATED Result below clinical reportable range for this analyt e, which is 2 mcg/L. Reported result was calculated using 2 mcg/L. This test was developed and its analytical performance characteristics have been determined by [facility]. It has not been cleared or approved by FDA. This assay has been validated pursuant to the CLIA regulations and is used for clini steven purposes. Norepinephrine 9 (L) 15 - 100 [facility] Comment: mcg/24 h INCORPORATED This test was developed and its analytical performance characteristics have been determined by [facility]. It has not been cleared or approved by FDA. This assay has been validated pursuant to the CLIA regulations and is used for clini steven purposes. Calculated Total 9 (L) 26 - 121 [facility] E+Ne Comment: mcg/24 h INCORPORATED This test was developed and its analytical performance characteristics have been determined by [facility]. It has not been cleared or [...] analytical performance characteristics have been determined by [facility]. It has not been cleared or approved by FDA. This assay has been validated pursuant to the CLIA regulations and is used for clini steven purposes. Creatinine,24 Hr 0.88 0.50 - 2.15 [facility] Urin g/24 h INCORPORATED Specimen Urine Narrative Performed At Performing Lab [facility] [place] [address] [place] [address] Mark Encarnacion MD, PhD, AMINA Performing Organization Address City/State/Zipcode Phone Number [place] [address] Type and screen, automated (01/20/2020 8:39 PM CDT)Only the most recent of2 resultswithin the time period is included. Pathologist Sig nature ABO/RH AUTOMATED A POSITIVE [facility] Ab Scrn NEGATIVE [facility] Specimen Blood Performing Organization Address City/State/Zipcode Phone Number [facility] [address] [place] [address] MR abdomen without IV contrast (01/20/2020 5:54 PM CDT) Specimen Narrative Performed At FINAL REPORT [facility] TECHNIQUE: MRI of the abdomen WITHOUT in [...] Report Verified Date/Time: 01/21/2020 07:51:30 Reading Location: [place] Reading Room - [place] [address]9 Procedure Note Interface, External Ris In [...] Verified Date/Time: 01/21/2020 0 7:51:30 Reading Location: [facility] Reading Room - [place] [address] 112 Performing Organization Address City/State/Zipcode Phone Number GE [facility] Urinalysis w/Microscopic + Reflex to Culture (01/19/2020 11:19 PM CDT) Color, UA Yellow [facility] Clarity, UA Hazy [facility] Specific [place], 1.017 1.001 - 1.035 [facility] pH, UA 5.5 5.0 - 8.0 [facility] Protein, UA 20 mg/dL (A) Negative [facility] Glucose, UA Negative Negative [facility] Ketones, UA Negative Negative [facility] Bilirubin, UA Negative Negative [facility] Blood, UA Small (A) Negative [facility] Nitrite, UA Negative Negative [facility] Leukocytes, UA Trace (A) Negative [facility] Urobilinogen, UA 0.2 0.2 - 1.0 mg/dL [facility] RBC, UA 1 /HPF [facility] WBC, UA 3 /HPF [facility] Bacteria, UA Rare [facility] Squam Epithel, UA 3 /HPF [facility] Hyaline Casts, UA 3 /LPF [facility] Specimen Source [facility] Specimen Urine Performing Organization Address City/State/Zipcode Phone Number [facility] [address] [place] [address] [place] Sodium, random urine (01/19/2020 11:19 PM CDT)Only the most recent of3 results within the time period is included. Pathologist Sig nature Sodium Urine <20 meq/L [facility] ICAL [place] Specimen Urine Narrative Performed At Reference Range: No Normals [facility] Med Admin ID - PIAYA L Performing Organization Address [facility]/Zipcode Phone Number [address] [address] [place] Urinalysis w/Microscopic (01/19/2020 11:19 PM CDT)Only the most recent of2 resultswithin the time period is included. Color, UA Yellow [facility] Clarity, UA Hazy [facility] Specific [place], 1.017 1.001 - 1.035 [facility] pH, UA 5.5 5.0 - 8.0 [facility] Protein, UA 20 mg/dL (A) Negative [facility] Glucose, UA Negative Negative [facility] Ketones, UA Negative Negative [facility] Bilirubin, UA Negative Negative [facility] Blood, UA Small (A) Negative [facility] Nitrite, UA Negative Negative [facility] Leukocytes, UA Trace (A) Negative [facility] Urobilinogen, UA 0.2 0.2 - 1.0 mg/dL [facility] RBC, UA 1 /HPF [facility] WBC, UA 3 /HPF [facility] Bacteria, UA Rare [facility] Squam Epithel, UA 3 /HPF [facility] Hyaline Casts, UA 3 /LPF [facility] Specimen Source [facility] Specimen Urine Narrative Performed At Med Admin ID - [auto] [facility] Med Admin ID - tech Performing Organization Address [facility]/Zipcode Phone Number [address] [address] CENTER Blood Culture - Routine (Right Venipuncture) (01/19/2020 9:45 PM CDT)Only the most recent of4 resultswithin the time period is included. Pathologist Sig nature Result No growth in 5 days [facility] Specimen Blood - Entire right upper arm (body str ucture) Performing Organization Address City/[facility]/Zipcode Phone Number [address] [address] CENTER [id number] PHENOTYP (01/19/2020 9:43 PM CDT) Specimen Blood - Entire right upper arm (body str ucture) Narrative Performed At This result has an attachment that is no t available. Performing Organization Address City/[facility]/Zipcode Phone Number [facility] [address] [place], [place] Blood gas, arterial (01/19/2020 3:44 PM CDT) Pathologist Sig nature pH, Arterial 7.42 7.35 - 7.45 [facility] pCO2, Arterial 36 35 - 45 mmHg [facility] pO2, Arterial 78 (L) 80 - 90 mmHg [facility] O2 Sat, Arterial 96.2 96.0 - 97.0 % [facility] HCO3, Arterial 23 21 - 29 mmol/L [facility] Base Excess, Arterial -1.9 -2.0 - 3.0 [facility] mmol/L [facility] Patient Temperature 36.1 C [facility] FIO2 28.0 % [facility] Specimen Blood, Arterial Performing Organization Address City/[facility]/Zipcode Phone Number [facility] [address] [place] [address] [place] Cryptococcal antigen (01/19/2020 3:04 PM CDT) Cryptococcal Negative Negative, [facility] Antigen, Serum Interference [facility] Specimen Blood Performing Organization Address [facility] Phone Number [facility] [address] [place] [address] [place] Rubeola antibody IgG (01/19/2020 3:04 PM CDT) [...] patient. For additional information, please refer to http://education.RADEUM/faq/MON296 (This link is being provided for informational/ educational purposes only.) Specimen Blood Narrative Performed At Performing Lab [facility] *QDID [facility] [address] [place] [address] Sudhakar Hargrove MD Performing Organization Address City/[facility] Phone Number [place] [address] INCORPORATED [address] [facility] Rubella antibody, IgG (01/19/2020 3:04 PM CDT) Pathologist Sig dima Rubella IgG Quant 127.0 (H) <8.0 IU/mL [facility] Specimen Blood Narrative Performed At Rubella IgG Result Interpretation: [facility] </= 7.0 IU/mL Negative - Presumed non-immune 8.0 - 9.9 IU/mL Equivocal >= 10.0 IU/mL Positive - Presumed immune Performing Organization Address City/[facility]/Zipcode Phone Number [facility] [address] [place] [phone] CENTER Varicella zoster antibody, IgG (01/19/2020 3:04 PM CDT) Pathologist Sig nature Varicella IgG 3.6 [facility] Specimen Blood Narrative Performed At VARICELLA ZOSTER RESULT INTERPRETATIONS: [facility] <=0.8 Al Nonreactive: Presumed non-immune to VZV 0.9-1.0 Al Equivocal >=1.1 Al Reactive: Presumed immune to VZV Performing Organization Address [facility] Phone Number [address] [address] [place] Mumps antibody, IgG (01/19/2020 3:04 PM CDT) [...] At Performing Lab [facility] *QDID [facility] [employer] [address] [place] [address] Sudhakar Hargrove MD Performing Organization Address City/[facility] Cent[facility]ode Phone Number [place] [address] INCORPORATED [address] [facility] US breast bilateral (01/19/2020 9:10 AM CDT) Specimen Narrative Performed At FINAL REPORT [facility] COMPLETE ULTRASOUND OF BOTH BREASTS AND AXILLA: [...] Report Verified Date/Time: 01/19/2020 09:52:28 Reading Location: [facility] 10th Flr Mammo Re ading Room Procedure [...] Verified Date/Time: 01/19/2020 0 9:52:28 Reading Location: [facility] 10th Flr Mammo Re ading Room Performing Organization Address City/State/Zipcode Phone Number [facility] Aldosterone (01/19/2020 4:11 AM CDT) Aldosterone 22 ng/dL [facility] Comment: INCORPORATED Adult Reference Ranges for Aldosterone: Upright 8:00-10:00 am < or = 28 ng/dL Upright 4:00-6:00 pm < or = 21 ng/dL Supine 8:00-10:00 am 3-16 ng/dL This test was developed and its analytical performance characteristics have been determined by [facility]. It has not been cleared or approved by FDA. This assay has been validated pursuant to the CLIA regulations and is used for clini steven purposes. Specimen Blood Narrative Performed At Performing Lab [facility] [place] [address] [place] [address] Mark Encarnacion MD, PhD, AMINA Performing Organization Address [facility] Centercode Phone [place] [address] INCORPORATED [address] [facility] Renin, plasma (01/19/2020 4:11 AM CDT) PRA,LC/MS/MS 1.51 0.25 - 5.82 [facility] Comment: ng/mL/h INCORPORATED This test was developed and its analytical performance characteristics have been determined by [facility]. It has not been cleared or approved by FDA. This assay has been validated pursuant to the CLIA regulations and is used for clini steven purposes. Specimen Blood Narrative Performed At Performing Lab [facility] EZ [facility] [address] [place] [address] Mark Encarnacion MD, PhD, AMINA Performing Organization Address [facility] Phone [place] [address] INCORPORATED [address] [facility] CT abdomen without IV contrast (01/19/2020 12:40 AM CDT) Specimen Narrative Performed At FINAL REPORT [facility] TECHNIQUE: CT of the abdomen WITHOUT int [...] Report Verified Date/Time: 01/19/2020 08:09:04 Reading Location: [facility] Reading Room - [place] [address] Procedure Note Interface, External Ris In - [...] Verified Date/Time: 01/19/2020 0 8:09:04 Reading Location: [facility] Reading Room - [place] [address] Performing Organization Address City/State/Zipcode Phone Number [facility] US renal complete (01/19/2020 12:20 AM CDT) Specimen Narrative Performed At FINAL REPORT [facility] Ultrasound of the Kidneys Clinical History: Re-examine [...] Date/Time: 01/19/2020 0 1:26:59 Performing Organization Address City/[facility] Phone Number [facility] Protein, random urine (01/18/2020 8:49 PM CDT) Pathologist Sig nature Protein, Urine 45 (H) 0 - 14 mg/dL [facility] Specimen Urine - Urine, Sterile Collection Narrative Performed At Med Admin ID - EDWIN B [facility] ICAL [place] Performing Organization Address [facility] Cent[facility]ode Phone Number [address] [address] CENTER Creatinine, random urine (01/18/2020 8:49 PM CDT)Only the most recent of2 resultswithin the time period is included. Pathologist Sig nature Creatinine, Ur 181.3 mg/dL [facility] [place] Specimen Urine - Urine, Sterile Collection Narrative Performed At Reference Range: No Normals [facility] Med Admin ID - EDWIN B Performing Organization Address [facility] Phone Number [address] [address] CENTER Eosinophil smear (01/18/2020 8:49 PM CDT) Pathologist Sig nature Eosinophil Smear Rare EOS =less No EOS seen [facility] 5% WBCs [facility] seen are EOS (A) CENTER Specimen Urine - Urine, Sterile Collection Performing Organization Address [facility] Phone Number [address] [address] CENTER NM Myocardial Perfusion Pet/CT (Rest & Stress) (01/18/2020 9:20 AM CDT) Specimen Narrative Performed At FINAL REPORT [facility] PROCEDURE: MYOCARDIAL PERFUSION PET IMAG ING (Rest/Stress) CPT CODE: [id number] INDICATION: Evaluation for liver transpl ant CARDIOVASCULAR [...] Report Verified Date/Time: 01/18/2020 12:45:40 Reading Location: [address] Reading Room Procedure Note Interface, External Ris In - 01/18/2020 12:47 PM CDT FINAL REPORT PROCEDURE: MYOCARDIAL PERFUSION PET IMAG ING (Rest/Stress) CPT CODE: 50607 INDICATION: Evaluation for liver transpl ant CARDIOVASCULAR [...] Verified Date/Time: 01/18/2020 1 2:45:40 Reading Location: [address] Reading Room Performing Organization Address City/State/Zipcode Phone Number [facility] RIS Treadmill tolerance(Non-Nuclear Treadmill) (01/18/2020 8:57 AM [...] on 01/19/2020 7:03:55 AM Performing Organization Address City/[facility] Phone Number [facility] ECG 12 lead (01/18/2020 8:46 AM CDT)Only the most recent of2 resultswithin the time period is included. Specimen Narrative Performed At Ventricular Rate 62 BPM GE MUSE Atrial Rate 62 BPM P-R Interval 138 ms QRS Duration 86 ms Q-T Interval 452 ms QTC Calculation(Bazett) 458 ms P Blair 59 degrees R Blair 32 degrees T Blair 56 degrees Normal sinus rhythm Low voltage [...] 452 ms QTC Calculation(Bazett) 458 ms P Blair 59 degrees R Blair 32 degrees T Blair 56 degrees Normal sinus rhythm Low voltage QRS Nonspecific ST abnormality 17 JAN 2020 11:05 Nonspecific T wave abnormality Nonspecif ic T wave abnormality, improved in QT has shortened Confirmed by MD FARHAT, JESSIE ([id number]) on 01/18/2020 2:19:38 PM Performing Organization Address City/[facility] Phone Number [facility] T Spot TB (01/18/2020 6:10 AM CDT) [...] Address City/State/Zipcode Phone Number [facility] [address] [place] [address] LAB[address]ATOR[address] REPORT OF PROCEDURE - [...] nature Case Report Surgical Pathology Report Case: [id number] [facility] Authorizing Provider: Sylvie George MD Collected: 01/17/2020 08:15 AM [facility] Ordering Location: [address] Received: 01/17/2020 01:50 PM [facility] CENTER Service Pathologist: Humaira Mendez MD Specimen: Duodenum, bio psy ADDENDUM THIS ADUODENUMIS ISSUED TO R EPORT THE FINDINGS IN THE DEEPER LEVELS OF THE BIOPSY AND GIVE THE FINAL DIAGNOSIS: [facility] Addpaladin healthcareum [facility] electronically signed DUODENUM, ENDOSCOPIC BIOPSY: MEDICAL PARVIN TER by Humaira Mendez - ECTATIC VESSELS IN THE LAMINA PROPRIA, SUGGESTIVE OF PORTAL DUODENOPATHY MD Siva on - NO FEATURES OF CELIAC DISEASE SEEN 01/19/2020 at 4:12 PM - NO GRANULOMAS, DYSPLASIA OR MALIGNANCY SEEN DIAGNOSIS DUODENUM, ENDOSCOPIC BIOPSY: [facility] Electronically signed - SUPERFICIAL FRAGMENTS OF SMALL BOWEL MUCOSA WITH GASTRIC FOVEOLAR METAPLASIA [facility] by Humaira Mendez [facility] MD Siva o n 01/18/2020 at 3 :50 PM Signing Pathologist Direct Phone Line: CPT Code(s) 72125 [facility] CLINICAL HISTORY Procedure: upper endoscopy, biopsy and colonosc opy [facility] Pre and postop diagnosis: anemia [facility] SPECIMEN SOURCE A. Duodenum; biopsy [facility] GROSS DESCRIPTION A. The specimen is [facility] received in [facility] formalin labeled [facility] with the patient's name, accession number and "duodenum" and consists of one garduno-pink mucosal-covered pieces of tissue measuring 0.3 x 0.2 x 0.1 cm. The specimen is submitted entirely following filtration in a cassette A1. HS/pl MICROSCOPIC PERFORMED [facility] Specimen Tissue - Duodenal structure (body struct ure) Performing Organization Address [facility] Phone Number [address] [address] CENTER Lactate dehydrogenase (LDH) (01/16/2020 12:24 PM CDT) Pathologist Sig nature LDH 250 (H) 125 - 220 U/L [facility] Specimen Blood Narrative Performed At Med Admin ID - TUAN C [facility] Performing Organization Address [facility] Phone Number [address] [address] CENTER Vitamin B12 and Folate (01/16/2020 11:25 AM CDT) Pathologist Sig nature Vitamin B12 1,107 (H) 213 - 816 pg/mL [facility] Folate 3.40 (L) >=7.00 ng/mL [facility] Specimen Blood Narrative Performed At Med Admin ID - NTP [facility] Performing Organization Address [facility] Phone Number [address] [address] CENTER HIV-1 Antigen with HIV-1/2 Antibody (01/16/2020 11:25 AM CDT) Pathologist Sig nature HIV-1 Antigen with Nonreactive Nonreactive [facility] HIV 1&2 Antibody [facility] Specimen Blood Narrative Performed At Med Admin ID - TUAN C [facility] Performing Organization Address [facility] Phone Number [address] [address] CENTER Haptoglobin (01/16/2020 11:25 AM CDT) Pathologist Sig nature Haptoglobin <8 (L) 14 - 258 mg/dL [facility] Specimen Blood Narrative Performed At Med Admin ID - TUAN Mera [facility] ICAL CENTER Performing Organization Address City/State/Zipcode Phone Number [facility] [address] [place] [address] CENTER US abdominal with doppler (01/16/2020 6:30 AM CDT) Specimen Narrative Performed At FINAL REPORT [facility] ULTRASOUND ABDOMEN COMPLETE, ULTRASOUND DUPLEX DOPPLER HISTORY: [...] Report Verified Date/Time: 01/16/2020 07:32:01 Reading Location: [address] Reading Room Procedure Note Interface, External [...] Verified Date/Time: 01/16/2020 0 7:32:01 Reading Location: [facility] C013T [facility] Reading Room Performing Organization Address City/State/Zipcode Phone Number [facility] Drug screen, urine, transplant (01/15/2020 9:52 PM CDT) Specimen Urine Narrative Performed At This result has an attachment that is no t available. Performing Organization Address City/State/Zipcode Phone Number [facility] [address] [place] [address] Blood typing, automated - - at seperate draw time from initial type and screen (01/15/2020 6:16 PMCDT) Pathologist Sig nature ABO/RH AUTOMATED A POSITIVE [facility] (BEAKER) [facility] Specimen Blood Performing Organization Address City/[facility]/Zipcode Phone Number [facility] [address] [place] [address] CT chest without IV contrast (01/15/2020 5:54 PM CDT) Specimen Narrative Performed At FINAL REPORT [facility] RIS CT of the chest, without contrast [...] Report Verified Date/Time: 01/15/2020 17:57:54 Reading Location: [facility] C013X [facility] Reading Room Procedure Note Interface, [...] Verified Date/Time: 01/15/2020 1 7:57:54 Reading Location: [address] Reading Room Performing Organization Address City/State/Zipcode Phone Number [facility] XR chest 2 views (01/15/2020 4:57 PM CDT) Specimen Narrative Performed At FINAL REPORT [facility] History: Cirrhosis, liver transplant shama luation Comparison: [...] Report Verified Date/Time: 01/15/2020 17:16:49 Reading Location: [address] [facility] Reading Room Procedure Note Interface, External [...] Verified Date/Time: 01/15/2020 1 7:16:49 Reading Location: [address] Reading Room Performing Organization Address City/State/Zipcode [...] Report Verified Date/Time: 01/15/2020 17:22:12 Reading Location: [facility] Reading Room Procedure Note Interface, External [...] Verified Date/Time: 01/15/2020 1 7:22:12 Reading Location: [address] Reading Room Performing Organization Address City/State/Zipcode Phone Number [facility] Mitochondria M2 Antibody (IgG) (01/15/2020 4:17 PM CDT) Mitochondria M2 Ab <20.0 See Note: U [facility] Comment: INCORPORATED Reference Range: NEGATIVE: < OR = 20.0 EQUIVOCAL: 20.1-24.9 POSITIVE: > OR = 25.0 Specimen Blood Narrative Performed At Performing Lab [facility] E[facility] [address] [place] [address] Mark Encarnacion MD, PhD, AMINA Performing Organization Address City/[facility] Phone Number [place] [address] INCORPORATED [address] [facility] Iron, TIBC, % sat. (without ferritin) (01/15/2020 4:17 PM CDT) Pathologist Sig nature Iron 144.0 40.0 - 160.0 [facility] ug/dL [facility] TIBC 129 (L) 250 - 450 ug/dL [facility] Iron % Saturation 112 (H) 20 - 55 % [facility] Specimen Blood Narrative Performed At Med Admin ID - DB [facility] Performing Organization Address City/[facility] Phone Number [address] [address] CENTER Hepatitis C antibody (01/15/2020 4:17 PM CDT) Pathologist Sig nature Hepatitis C Ab Nonreactive Nonreactive [facility] Specimen Blood Narrative Performed At Med Admin ID - DB [facility] Performing Organization Address City/[facility]/Zipcode Phone Number [address] [address] CENTER Cytomegalovirus antibody, IgM (01/15/2020 4:17 PM CDT) Pathologist Sig nature CMV IGM Negative Negative, Equivocal [facility] Specimen Blood Narrative Performed At CMV IgM Result Interpretation: [facility] </= 0.8 Al Negative 0.9-1.0 Al Equivocal >/= 1.1 Al Positive Performing Organization Address City/[facility] Phone Number [place] [phone] [place] [address] [place] Actin (Smooth Muscle) Antibody, IgG (01/15/2020 4:17 [...] Lab [facility] [place] [address] [place] [address] Mark Encarnacion MD, PhD, AMINA Performing Organization Address [facility] Phone Number [place] [address] INCORPORATED [address] [facility] [id number] (01/15/2020 4:17 PM CDT) Pathologist Sig nature A-1 Antitrypsin 121.20 90.00 - 200.00 [facility] mg/dL [facility] Specimen Blood Narrative Performed At Med Admin ID - DB [facility] Performing Organization Address City/[facility]/Zipcode Phone Number [facility] [address] [place] [address] CENTER Hepatitis A antibody, IgM (01/15/2020 4:17 PM CDT) Pathologist Sig nature Hep A IgM Nonreactive Nonreactive [facility] Specimen Blood Narrative Performed At Med Admin ID - DB [facility] Performing Organization Address City/[facility]/Zipcode Phone Number [facility] [address] [place] [address] CENTER Carbohydrate antigen 19-9 (CA [...] Lab [facility] [address] [place] [address] Mark Encarnacion MD, PhD, AMINA Performing Organization Address [facility] Phone Number [place] [address] INCORPORATED [address] [facility] Ceruloplasmin (01/15/2020 4:17 PM CDT) Pathologist Sig nature Ceruloplasmin 21 18 - 53 mg/dL [facility] JERAMY Specimen Blood Narrative Performed At Performing Lab [facility] *BEATRIZ [facility] [place] [facility], [address] [place] [phone] Jorje Jauregui MD, PhD Performing Organization Address [facility] Phone Number [place] [address] INCORPORATED [address] [address] [facility] Zinc (01/15/2020 4:17 PM CDT) Zinc 39 (L) 60 - 130 [facility] Comment: mcg/dL INCORPORATED This test was developed and its analytical performance characteristics have been determined by [employer]. It has not been cleared or approved by [facility] FDA. This assay has been validated pursuant to the CLI A regulations and is used for clinical purposes. Specimen Blood Narrative Performed At Performing Lab [facility] *BEATRIZ [facility], [address] [place] [phone] Jorje Jauregui MD, PhD Performing Organization Address City/State/Zipcode Phone Number [facility] [place] [address] INCORPORATED [address] [facility] Hepatitis B core antibody, IgM (01/15/2020 4:17 PM CDT) Pathologist Sig nature Hep B C IgM Nonreactive Nonreactive [facility] Specimen Blood Narrative Performed At Med Admin ID - DB [facility] Performing Organization Address City/State/Zipcode Phone Number [facility] [address] [place] [address] CENTER EBV-VCA antibody, IgM (01/15/2020 4:17 PM CDT) GABRIEL CHING VIRAL Negative Negative, Equivocal [facility] CAPSID ANTIGEN IGM [facility] Specimen Blood Narrative Performed At Gabriel Ching Viral Capsid Antigen IgM Result [facility] Interpretation: </= 0.8 Al Negative 0.9-1.0 Al Equivocal >/= 1.1 Al Positive Performing Organization Address City/[facility]/Zipcode Phone Number [facility] [address] [place] [address] CENTER EBV-VCA antibody, IgG (01/15/2020 4:17 PM CDT) GABRIEL CHING VIRAL Positive (A) Negative, [facility] CAPSID ANTIGEN IGG Equivocal [facility] Specimen Blood Narrative Performed At Gabriel Ching Viral Capsid Antigen IgG Result [facility] Interpretation: </= 0.8 Al Negative 0.9-1.0 Al Equivocal >/= 1.1 Al Positive Performing Organization Address City/State/Zipcode Phone Number [facility] [address] [place] [address] CENTER Hepatitis B core antibody, total (01/15/2020 4:17 PM CDT) Pathologist Sig nature Hep B Core Total Ab Nonreactive Nonreactive [facility] Specimen Blood Narrative Performed At Med Admin ID - CAROLINA F [facility] Performing Organization Address City/State/Zipcode Phone Number [address] [address] CENTER Vitamin D, 25-Hydroxy (01/15/2020 4:17 PM CDT) Pathologist Sig nature Vitamin D 25-Hydroxy 6.2 (L) 6.6 - 49.9 ng/mL [facility] Specimen Blood Narrative Performed At Effective 05/07/2017: Reference Range Ch von [facility] New: 6.6-49.9 ng/mL Previous: 13.0-47.8 ng/mL Recommended Vitamin D Target Range: 30.0-40.0 ng/mL Med Admin ID - DB Performing Organization Address [facility] Phone Number [address] [address] CENTER RPR (01/15/2020 4:17 PM CDT) Pathologist Sig [facility] RPR Nonreactive Nonreactive [facility] Specimen Blood Performing Organization Address [facility] Phone Number [address] [address] CENTER Hepatitis B surface antibody (01/15/2020 4:17 PM CDT) Pathologist Sig [facility] Hep B S Ab 25.0 (H) <8.0 mIU/mL [facility] Specimen Blood Narrative Performed At Med Admin ID - DB [facility] Performing Organization Address City/[facility] Phone Number [address] [address] CENTER Hepatitis B surface antigen (01/15/2020 4:17 PM CDT) Pathologist Sig [facility] HBsAg Screen Nonreactive Nonreactive [facility] Specimen Blood Narrative Performed At Specimen is considered negative for HBsAg. [facility] Performing Organization Address City/[facility]/Zipcode Phone Number [address] [address] [place] Cytomegalovirus antibody, IgG (01/15/2020 4:17 PM CDT) CYTOMEGALOVIRUS, Positive (A) Negative, [facility] IGG Equivocal [facility] Specimen Blood Narrative Performed At CMV IgG Result Interpretation: [facility] </= 0.8 Al Negative 0.9-1.0 Al Equivocal >/=1.1 Al Positive Performing Organization Address [facility] [place] [address] [place] aPTT (01/15/2020 4:17 PM CDT) Pathologist Sig [facility] PTT 36.8 (H) 22.5 - 36.0 seconds [facility] Specimen Blood Performing Organization Address [facility] [place] [address] [place] Fibrinogen (01/15/2020 4:17 PM CDT) Pathologist Sig [facility] Fibrinogen 114 (L) 225 - 434 mg/dl [facility] Specimen Blood Performing Organization Address [facility] [place] [address] [place] Anti-Nuclear Antibody (REILLY) (01/15/2020 4:17 PM CDT) Pathologist Sig nature REILLY Negative Negative [facility] Specimen Blood Narrative Performed At Test performed by IFA method. [facility] Test performed by IFA method. Performing Organization Address [facility] Phone Number [address] [address] [place] T3 (01/15/2020 4:17 PM CDT) Pathologist Sig nature T3, Total 51 48 - 159 ng/dL [facility] Specimen Blood Narrative Performed At This result has an attachment that is no t available. Performing Organization Address City/[facility] Phone Number [facility] [address] [facility] o, [place] Transferrin (01/15/2020 4:17 PM CDT) Pathologist Sig nature Transferrin 102 (L) 174 - 382 mg/dL [facility] Specimen Blood Narrative Performed At Med Admin ID - DB [facility] Specimen moderately icteric Performing Organization Address [facility] Phone Number [address] [address] [place] TSH (01/15/2020 4:17 PM CDT) Pathologist Sig nature TSH 5.549 (H) 0.350 - 4.940 uIU/mL [facility] Specimen Blood Narrative Performed At Med Admin ID - [facility] [place] Performing Organization Address [facility] Phone Number [address] [address] CENTER T4 (01/15/2020 4:17 PM CDT) Pathologist Sig nature T4, Total 4.3 (L) 4.9 - 11.7 ug/dL [facility] Specimen Blood Narrative Performed At Med Admin ID - NTP [facility] Performing Organization Address [facility] Phone Number [address] [address] [place] Hemoglobin A1c (01/15/2020 4:17 PM CDT) Pathologist Sig nature Hemoglobin A1C <3.8 (L) 4.3 - 6.1 % [facility] Specimen Blood Performing Organization Address [facility] Phone Number [address] [address] CENTER Ferritin (01/15/2020 4:17 PM CDT) Pathologist Sig nature Ferritin 489.86 (H) 5.00 - 275.00 ng/mL [facility] Specimen Blood Narrative Performed At Med Admin ID - NTP [facility] Performing Organization Address City/[facility]/Zipcode Phone Number [address] [address] [place] Carcinoembryonic Antigen (CEA) (01/15/2020 4:17 PM CDT) Pathologist Sig nature CEA, SERUM 7.9 (H) 0.0 - 5.0 ng/mL [facility] Specimen Blood Narrative Performed At Med Admin ID - DB [facility] Performing Organization Address City/[facility]/Zipcode Phone Number [address] [address] [place] Ethanol (01/15/2020 4:17 PM CDT) Pathologist Sig nature Ethanol Lvl <10 <=10 mg/dL [facility] Specimen Blood Narrative Performed At Med Admin ID - DB [facility] Performing Organization Address City/[facility]/Zipcode Phone Number [address] [address] [place] 2D Echo W/Doppler(CW/PW/Color) (01/15/2020 2:45 PM CDT) Pathologist Sig nature Ejection Fraction [facility] Specimen Narrative Performed At Transthoracic Echocardiography Report (T TE) [facility] Demographics Patient Name CICI CALDERON Date of Study 01/15/2020 ALYSE Gender Female Visit Number [id number] Race Unknown Room Number 1515 Number Date of 1955 Referring Physician Ren Hernanedz MD Age 64 year(s) Laundry Washer Lisa Bautista [facility] S Interpreting Jai grajeda MD Physician Procedure [...] Study 01/15/2020 ALYSE Gender Female Visit Number [id number] Race Unknown Room [place] [address] Number Date of 1955 Referri Physician Ren [...] l/min/m^2 Performing Organization Address City/State/Zipcode Phone Number [facility] Carotid doppler bilateral (01/15/2020 2:41 PM CDT) Pathologist Sig nature Ejection Fraction [facility] Specimen Impressions Performed At Right Impression [facility] 1. The internal, common and external [...] Performed At LAB - Carotid Duplex Study [facility] Demographics Patient Name CICI CALDERON Date of Study 01/15/2020 ALYSE Age 64 Visit Number [id number] Gender Female Accession Number [id number] Date of 1955 Referring Eliecer Kipo Jorje. Room Number 1515 Physician Laundry Washer Herbert Lechuga Interpreting Chelsea Resendez, T Physician Procedure Type of Study: Cerebral: [...] Study 01/15/2020 ALYSE Age 64 Visit Number [id number] Gen margarita Female Accession Number [id number] Ramirez e of 1955 Referring Eliecerlety RecinosIrene Peyton m Number 1515 Physician Laundry Washer Herbert Lechuga Int erpreting Chelsea Resendez, T [...] Measurements:ICAPSV/CCAPS V 0.96.ICAEDV/CCAEDV 1.52. Performing Organization Address City/[facility]/Zipcode Phone Number [facility] Hepatitis panel, acute (01/15/2020 8:32 AM CDT) Pathologist Sig nature Hep A IgM Nonreactive Nonreactive [facility] Hep B C IgM Nonreactive Nonreactive [facility] Hepatitis C Ab Nonreactive Nonreactive [facility] HBsAg Screen Nonreactive Nonreactive [facility] Specimen Blood Narrative Performed At Med Admin ID - NTP [facility] Performing Organization Address [facility]/Zipcode Phone Number [facility] MEDICAL [address] [place] [address] CENTER Ammonia (01/15/2020 8:32 AM CDT) Pathologist Sig nature Ammonia 19 18 - 72 mol/L [facility] Specimen Blood Narrative Performed At Med Admin ID - NTP [facility] Performing Organization Address [facility] Phone Number [address] [address] [place] Uric acid (01/15/2020 3:56 AM CDT) Pathologist Sig nature Uric Acid 15.7 (H) 2.6 - 7.2 mg/dL [facility] Specimen Blood Narrative Performed At Med Admin ID - NTP [facility] Specimen moderately icteric Performing Organization Address [facility] Phone Number [address] [address] [place] Gamma Glutamyl Transferase (GGT) (01/15/2020 3:56 AM CDT) Pathologist Sig nature GGT 15 [phone] - 64 U/L [facility] Specimen Blood Narrative Performed At Med Admin ID - NTP [facility] Specimen moderately icteric Performing Organization Address [facility] Centercode Phone Number [address] [address] [place] Lipid panel (01/15/2020 3:56 AM CDT) Pathologist Sig nature Triglycerides 86 mg/dL [facility] Cholesterol 101 mg/dL [facility] [place] HDL 12 mg/dL [facility] ICAL [place] LDL Calculated 72 mg/dL [facility] [place] Specimen Blood Narrative Performed At Triglyceride Reference Range: [facility] Low Risk <150 Borderline 150-199 High Risk 200-499 Very High Risk >=500 Cholesterol Reference Range: Low Risk <200 Borderline 200-239 High Risk >240 HDL Cholesterol Reference Range: Low Risk >=60 High Risk <40 LDL Cholesterol Reference Range: Optimal <100 Near Optimal 100-129 Borderline 130-159 High 160-189 Very High >=190 Med Admin ID - [facility] Specimen moderately icteric Performing Organization Address [facility]/State/Zipcode Phone Number [facility] [address] [place] [address] CENTER SARS-CoV2/RT-PCR (Asymptomatic ONLY) (01/14/2020 7:28 PM CDT) SARS-COV2/RT-PCR Not Detected Not Detected, [facility] Negative [facility] SARS-COV-2 [facility] PERFORMING LAB [facility] Specimen Other - Nasopharyngeal wall structure (b arsenio structure) Narrative Performed At Negative results do not preclude SARS-CoV-2 [facility] infection and should not be used [...] the Act. Fact Sheet for Healthcare Providers: https://www.[employer]/Documents/Xpert%20Xpre ss%20SARS%20CoV-2/Fact%20Sheets/653-7422%20SAR S-COV-2%20HEALTHCARE%20PROVIDERS%20FACT%20SHEE T.pdf Fact Sheet for Healthcare Patients: https://www.[employer]/Documents/Xpert%20Xpre ss%20SARS%20CoV-2/Fact%20Sheets/364-3801%20SAR S-COV-2%20PATIENT%20FACT%20SHEET.pdf Performing Laboratory: [facility] [address] [place] [id number] Performing Organization Address City/State/Zipcode Phone Number [facility] [address] [place], [place] [phone] CENTER after 06/21/2019 Insurance Payer Benefit Plan / Subscriber ID Effective Dates Phone Addre ss Type Group AETNA - AETNA MEDICARE [id number] 2019-Presen [phone] [address] MEDICARE MGD HMO POS PPO t 2 [id number] [place] [address] Advance Directives For more information, please contact: [phone] Code Status Date Activated Date Inactivated Comments Full Code 01/14/2020 8:09 PM 01/26/2020 8:41 PM This code status was determined by: Patient
--- OUTSIDE RECORDS SUMMARY | 2020-06-21 07:55 | XMS REPORT | Continuity of Care Document ---
:1955 Author Organization [facility] t Address [address] [place] [address] Care Team Providers Name Role Phone Nahun Leonard MD Primary Care Physician Mayank ESPINOSA, R Attending Clinician Unavailable Rl Attending Clinician Unavailable Baltazar Hernandez Attending [...] Date Holli plunkett AETNA - [id number] [address] [facility] MGD 00:00:00 - Medical CAREAETNA [place] MEDICARE HMO POS [id number] [address] Problems Condition Condition Condition Status Onset Resolution Last Treating Co mments Source Name Details Category Date Date Treatment Clinician Date Acute Acute Disease Active [facility]19 [facility] - failure failure 00:00: Medical 00 Center Elevated Elevated Disease Active [facility] [...] 2015-[address] [facility] - on on 00:00: t & Plan: Medical Manifeste Center d by ky ngo on imaging. She does not have varices, ascites or HE. 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 09-01 Ass[facility]men [facility] - 00:00: t & Plan: Medical 00 EGD in Center March 2016 was negative for varices. Obesity Obesity Disease Active 2015-[address] (BMI (BMI 09-01 [facility] - 35.0-39.9 35.0-39.9 00:00: t & Plan: [...] Last [facility] mass, left mass, left 2- Assessmen - 00:00: t & Plan: Medical [...] Allergy 09-01 [facility] - 00:00: Medical 00 [place] Levoflox Drug Active Other (See 2015-[address] acin Intolera Comments) 09-01 and - nce 00:00: diarrhea Medical 00 Center Sulfa Drug Active Rash 2015-[address] [facility] (Sulfona Allergy 09-01 [facility] - mide 00:00: Medical Antibiot 00 Center ics) Tetracyc Drug Active Hives 2015-[address] [facility] lines Allergy 09-01 [facility] - 00:00: Medical 00 [place] Tetracyc Adverse Active hives [facility] line HCl Reaction [facility] Levaquin Adverse Active vomiting/jocy C HI [facility] Reaction rrhea [facility] Erythrom Adverse Active vomiting/jocy [facility] Family History Family Member Diagnosis Comments Start Date Stop Date Source Natural brother Diabetes [facility] Natural brother Hypertension [facility] Natural brother Arthritis [facility] Natural brother COPD [facility] Natural father Diabetes [facility] Natural father Heart disease [facility] Natural mother Diabetes [facility] Natural mother Heart disease [facility] Natural sister Cancer [facility] Social History Social Habit Start Date Stop Date Quantity Comments Source Sex Assigned At [facility] Tobacco use and 2020-04-11 2020-04-[address] Fe kes - exposure 00:00:00 00:00:00 Medical Center Alcohol intake 2020-04-11 2020-04-11 Current drinker YAIMA carcamo [facility] - 00:00:00 00:00:00 of alcohol [facility] (finding) Alcohol Comment 2016-07-01 2016-07-01 social last drink LETTY Smiley [facility] - 00:00:00 00:00:00 06/15/16 Medical Center Smoking Status Start Date Stop Date Source Former smoker 2020-04-11 00:00:00 2020-04-11 00:00:[address] [facility] - [facility] Medications Ordered Filled Start Stop Current [...] type (HCC) ergocalcife 2020- Yes Vitamin D 72531O Q7D Take [address] [facility] rol 04-11 [...] 2 (two) times daily. ergocalcife 2019- No 32209B Q7D Take [address] rol 01-31 capsule [facility] - (ERGOCALCIF 00:00: 00:00 (50,000 Me dical MARIN) 1,250 00 :00 Units Center mcg (50,000 total) by unit) mouth once capsule a week. pantoprazol Yes 40mg QD Take [address] [facility] e 01-26 tablet (40 [facility] - (PROTONIX) 00:00: mg total) Me dical 40 MG 00 by mouth Center tablet daily. folic acid 2019- No 1mg QD Take [address] (FOLVITE) 1 01-2615 tablet (1 Fe kes - MG tablet 00:00: 00:00 mg total) Me dical 00 :00 by mouth Center daily. furosemide 2019- No 40mg Q.5D Take [address] (LASIX) 20 01-25 by mouth 2 Fe kes - MG tablet 16:18: 00:00 (two) Medica l 24 :00 times Center daily . spironolact 2019- No 25mg QD Take 25 mg [facility] [...] Center mouth 2 (two) times daily. lactulose Yes 20g Q.[id number] Take [address] (CHRONULAC) 01-25 [id number] mLs (20 g [facility] - 20 gram/30 00:00: 3D total) by Dc dical mL solution 00 mouth 3 Cente r (three) times daily. calcitrioL 2019- No .5ug QD Take [address] [...] (241.3 mg mouth magnesium) daily. tablet midodrine 2019- No 2.5mg Q.[id number] Take [address] (PROAMATINE 01-25 [id number] tablet [facility]ukes - ) 2.5 MG 00:00: [...] [facility] Sulfate HFA Sulfate HFA 4-09 [place] needed [facility] - 00:00: [facility] 00 l [facility] Clinics Cimetidine Cimetidine Yes Mitzy [address] [facility] [address] [place] as needed [facility] Calcitriol Calcitriol Yes Mitzy [address] [facility] Lactulose Lactulose Yes Mitzy [address] [facility] Xifaxan Xifaxan Yes Mitzy [address] [facility] Folic Acid Folic Acid Yes Mitzy [address] [facility] Spironolact Spironolact Yes Mitzy [address] one one Simpson [facility] Vitamin D2 Vitamin D2 Yes Mitzy [address] [facility] MagOx 400 MagOx 400 Yes Mitzy [address] [place] with food [facility] Tramadol Tramadol Yes Mitzy [address] HCl HCl Simpson as needed [facility] Midodrine Midodrine Yes Mitzy [address] HCl HCl Simpson [facility] Pantoprazol Pantoprazol Yes Mitzy [address] e Sodium e Sodium Simpson mixed with Lukes - apple Memoria juice or l applesauce [facility] Immunizations Ordered Filled Immunization Date Status Comments Sour e Immunization Name Name Hepatitis A (adult) Hepatitis A (adult) 2020-02-21 Completed [facility] - 00:00:00 [facility] Hepatitis B (adult) Hepatitis B (adult) 2020-02-21 Completed [facility] - 00:00:00 [facility] Vital Signs Vital Name Observation Time Observation Value Comments Source Systolic blood 2020-04-11 09:39:00 104 mm[Hg] [facility] Diastolic blood 2020-04-11 09:39:00 43 mm[Hg] [facility] Heart rate 2020-04-11 09:39:00 85 /min [facility] Body temperature 2020-04-11 09:39:00 36.28 Shaneka [facility] Respiratory rate 2020-04-11 09:39:00 18 /min [facility] Body height 2020-04-11 09:39:00 162.6 cm [facility] Body weight 2020-04-11 09:39:00 84.959 kg [facility] BMI 2020-04-11 09:39:00 32.15 kg/m2 [facility] Oxygen saturation in 2020-04-11 09:39:00 95 /min [facility] - Arterial blood by Medical Ce nter Pulse oximetry Procedures Procedure Date / Time Performing Clinician Source Performed PROTHROMBIN TIME/INR 2020-06-13 12:36:00 AmericaKristofer theodore [facility] COMPREHENSIVE METABOLIC 2020-06-13 12:36:[address] [facility] CBC W/PLT COUNT & AUTO 2020-06-13 12:36:00 AmericaKristofer [facility] BILIRUBIN, DIRECT 2020-06-13 12:36:00 AmericaKristofer [facility] PROTHROMBIN TIME/INR 2020-05-17 13:41:00 AmericaKristofer [facility] COMPREHENSIVE METABOLIC 2020-05-17 13:41:[address] [facility] CBC W/PLT COUNT & AUTO 2020-05-17 13:41:00 AmericaKristofer [facility] BILIRUBIN, DIRECT 2020-05-17 13:41:00 AmericaKristofer [facility] PROTHROMBIN TIME/INR 2020-05-09 12:29:00 AmericaKristofer theodore [facility] COMPREHENSIVE METABOLIC 2020-05-09 12:29:[address] [facility] CBC W/PLT COUNT & AUTO 2020-05-09 12:29:00 AmericaKristofer theodore [facility] BILIRUBIN, DIRECT 2020-05-09 12:29:00 AmericaKristofer theodore [facility] PROTHROMBIN TIME/INR 2020-05-02 13:25:00 AmericaKristofer theodore [facility] COMPREHENSIVE METABOLIC 2020-05-02 13:25:[address] [facility] CBC W/PLT COUNT & AUTO 2020-05-02 13:25:00 AmericaKristofer theodore [facility] BILIRUBIN, DIRECT 2020-05-02 13:25:00 AmericaKristofer [facility] PLATELET ESTIMATION 2020-05-02 13:25:00 AmericaKristofer [facility] PROTHROMBIN TIME/INR 2020-04-25 13:13:00 AmericaKristofer theodore [facility] COMPREHENSIVE METABOLIC 2020-04-25 13:13:[address] [facility] CBC W/PLT COUNT & AUTO 2020-04-25 13:13:00 AmericaKristofer theodore [facility] BILIRUBIN, DIRECT 2020-04-25 13:13:00 AmericaKristofer [facility] PLATELET ESTIMATION 2020-04-25 13:13:00 AmericaKristofer theodore [facility] PROTHROMBIN TIME/INR 2020-04-18 08:56:00 AmericaKristofer theodore [facility] METABOLIC 2020-04-18 08:56:[address] [facility] CBC W/PLT COUNT & AUTO 2020-04-18 08:56:00 AmericaKristofer theodore [facility] BILIRUBIN, DIRECT 2020-04-18 08:56:00 AmericaKristofer theodore [facility] XR DXA BONE DENSITY STUDY 2020-04-11 11:51:[address] [facility] ALPHA FETOPROTEIN (AFP), 2020-04-11 11:13:00 Sia Riley [facility] TUMOR MARKER [facility] BILIRUBIN, DIRECT 2020-04-11 11:13:00 Sia Riley [facility] COMPREHENSIVE METABOLIC 2020-04-11 11:13:[address] [facility] PROTHROMBIN TIME/INR 2020-04-11 11:13:00 Sia Riley [facility] CBC W/PLT COUNT & AUTO 2020-04-11 11:13:00 Sia Riley [facility] PROTHROMBIN TIME/INR 2020-03-10 08:03:00 Kristofer Montgomery [facility] COMPREHENSIVE METABOLIC 2020-03-10 08:03:[address] [facility] CBC W/PLT COUNT & AUTO 2020-03-10 08:03:00 AmericaKristofer theodore [facility] BILIRUBIN, DIRECT 2020-03-10 08:03:00 AmericaKristofer theodore [facility] MISCELLANEOUS LAB ORDER 2020-02-15 12:29:00 AmericaKristofer [facility] MAGNESIUM 2020-02-15 12:29:00 AmericaKristofer [facility] BILIRUBIN, DIRECT 2020-02-15 12:29:00 AmericaKristofer [facility] COMPREHENSIVE METABOLIC 2020-02-15 12:29:[address] [facility] PROTHROMBIN TIME/INR 2020-02-15 12:29:00 AmericaKristofer [facility] CBC W/PLT COUNT & AUTO 2020-02-15 12:29:00 AmericaKristofer [facility] PROTHROMBIN TIME/INR 2020-02-08 10:23:00 AmericaKristofer [facility] COMPREHENSIVE METABOLIC 2020-02-08 10:23:[address] [facility] CBC W/PLT COUNT & AUTO 2020-02-08 10:23:00 AmericaKristofer [facility] BILIRUBIN, DIRECT 2020-02-08 10:23:00 AmericaKristofer [facility] PLATELET ESTIMATION 2020-02-08 10:23:00 AmericaKristofer [facility] PROTHROMBIN TIME/INR 2020-02-01 09:25:00 AmericaKristofer theodore [facility] COMPREHENSIVE METABOLIC 2020-02-01 09:25:[address] [facility] CBC W/PLT COUNT & AUTO 2020-02-01 09:25:00 AmericaKristofer [facility] BILIRUBIN, DIRECT 2020-02-01 09:25:00 AmericaKrisotfer [facility] RHYTHM STRIP - SCAN 2020-01-27 10:00:12 [facility] - SCAN 2020-01-27 10:00:07 [facility], [facility] TRANSFUSE LEUKO-REDUCED 2020-01-26 22:41:07 Miguel Angel Kaylin [facility] PLATELETS [facility] METANEPHRINES 2020-01-26 14:51:00 YahairaBlanca noriega [facility] Curtis [facility] HEPATIC FUNCTION PANEL 2020-01-26 03:50:00 [facility] PROTHROMBIN TIME/INR 2020-01-26 03:50:00 [facility] CALCIUM, IONIZED 2020-01-26 03:50:00 [facility] COMPREHENSIVE METABOLIC 2020-01-26 03:50:00 [facility] 2020-01-26 03:50:00 [facility] MAGNESIUM 2020-01-26 03:50:00 [place] [facility] CBC W/PLT COUNT & AUTO 2020-01-26 03:50:00 Florian Kinney [facility] HEPATIC FUNCTION PANEL 2020-01-25 03:47:00 [facility] PROTHROMBIN TIME/INR 2020-01-25 03:47:00 [facility] BASIC METABOLIC PANEL (7) 2020-01-25 03:47:[address] [facility] MAGNESIUM 2020-01-25 03:47:00 [place] [facility] CBC W/PLT COUNT & AUTO 2020-01-25 03:47:00 Florian Kinney [facility] (CELLAVISION MANUAL DIFF) 2020-01-25 03:47:00 Florian Kinney [facility] TRANSFUSION SERVICE REPORT 2020-01-24 18:00:13 [facility], [facility] PULMONARY FUNCTION - SCAN 2020-01-24 13:10:09 Provider, [facility] SPIROMETRY 2020-01-24 10:41:00 [facility] DLCO (SINGLE BREATH 2020-01-24 10:41:00 [facility] - DIFFUSION) [facility] LUNG VOLUMES 2020-01-24 10:41:00 [facility] 6 MINUTE WALK(FOR LUNG 2020-01-24 10:20:00 [facility] - TRANSPLANT ONLY) [facility] HEPATIC FUNCTION PANEL 2020-01-24 03:57:00 [place] [facility] PROTHROMBIN TIME/INR 2020-01-24 03:57:00 [facility] CALCIUM, IONIZED 2020-01-24 03:57:00 [facility] PHOSPHORUS 2020-01-24 03:57:00 Kermit Nicole [facility] BASIC METABOLIC PANEL (7) 2020-01-24 03:57:00 Leena Arias CH, I [facility] MAGNESIUM 2020-01-24 03:57:00 Leena Arias [facility] CBC W/PLT COUNT & AUTO 2020-01-24 03:57:00 [place] [facility] PREPARE LEUKO-REDUCED RBC 2020-01-23 23:54:00 Vitor Orozco CH, I [facility] TRANSFUSION SERVICE REPORT 2020-01-23 18:00:37 Provider, Bozena [facility] - - SCAN Scanning [facility] HEPATIC FUNCTION PANEL 2020-01-23 04:32:00 [place] [facility] PROTHROMBIN TIME/INR 2020-01-23 04:32:00 [place] [facility] B-TYPE NATRIURETIC FACTOR 2020-01-23 04:32:00 Kermit Nicole [facility] (BNP) [facility] CALCIUM, IONIZED 2020-01-23 04:32:00 Kermit Nicole [facility] PHOSPHORUS 2020-01-23 04:32:00 Kermit Nicole [facility] BASIC METABOLIC PANEL (7) 2020-01-23 04:32:00 Arias, Leena [facility] MAGNESIUM 2020-01-23 04:32:00 Arias, [facility] CBC W/PLT COUNT & AUTO 2020-01-23 04:32:00 [place] [facility] (CELLAVISION MANUAL DIFF) 2020-01-23 04:32:00 [place] [facility] PREPARE LEUKO-REDUCED 2020-01-22 23:54:00 Miguel Angel, Kaylin [facility] PLATELETS [facility] TRANSFUSION SERVICE REPORT 2020-01-22 18:01:00 Provider, Default [facility] SCAN [facility] TRANSFUSE LEUKO-REDUCED RED 2020-01-22 14:30:53 Vitor Orozco [facility] BLOOD CELLS [facility] CORTISOL 2020-01-22 08:23:00 Christine Carlisle [facility] CALCIUM, IONIZED 2020-01-22 04:35:00 Russ Ha [facility] HEPATIC FUNCTION PANEL 2020-01-22 04:35:00 Galdino [facility] BASIC METABOLIC PANEL (7) 2020-01-22 04:35:00 [place] [facility] MAGNESIUM 2020-01-22 04:35:00 Arias [facility] CBC W/PLT COUNT & AUTO 2020-01-22 04:35:00 Arias [facility] (CELLAVISION MANUAL DIFF) 2020-01-22 04:35:00 [place] [facility] PROTHROMBIN TIME/INR 2020-01-22 04:34:00 Galdino [facility] DIRECT [facility] (KRISTI)/DIRECT 2020-01-22 04:34:00 Gregory, [facility] ABORH, MANUAL 2020-01-22 04:34:[address] [facility] TRANSFUSION SERVICE REPORT 2020-01-21 18:00:48 Provider, Default [facility] SCAN [facility] BODY FLUID CULTURE + GRAM 2020-01-21 16:54:00 Miguel Angel, Kaylin [facility] BODY FLUID CELL COUNT WITH 2020-01-21 16:54:00 Miguel Angel, Kaylin [facility] US PARACENTESIS 2020-01-21 16:40:00 [facility] MISCELLANEOUS LAB ORDER 2020-01-21 09:31:00 Orestes [facility] HEPATIC FUNCTION PANEL 2020-01-21 09:31:00 [facility] PROTHROMBIN TIME/INR 2020-01-21 09:31:00 [facility] COMPREHENSIVE METABOLIC 2020-01-21 09:31:00 [facility] 2020-01-21 09:31:00 [facility] MAGNESIUM 2020-01-21 09:31:00 Leena Arias [facility] CORTISOL 2020-01-21 09:31:00 [facility] RETICULOCYTE COUNT 2020-01-21 09:31:[address] [facility] PERIPHERAL BLOOD SMEAR - 2020-01-21 09:31:[address] [facility] CBC W/PLT COUNT & AUTO 2020-01-21 09:31:00 Russ Ha [facility] XR CHEST 1 VIEW 2020-01-21 09:10:00 Micheal Haneet [facility] PORTABLE/BEDSIDE [facility] METANEPHRINES, 24 HOUR 2020-01-20 22:51:00 [place] [facility] URINE [facility] CATECHOLAMINES, 2020-01-20 22:51:00 [facility] - FRACTIONATED, 24HR URINE Medical Center TYPE AND SCREEN, AUTOMATED 2020-01-20 20:39:00 Miguel AngelAmna [facility] XR CHEST 1 VIEW 2020-01-20 20:28:00 [facility] PORTABLE/BEDSIDE Medical [place] TRANSFUSION SERVICE REPORT 2020-01-20 18:01:[address] [facility] ABDOMEN WITHOUT IV 2020-01-20 17:54:00 [facility] CONTRAST [facility] HEPATIC FUNCTION PANEL 2020-01-20 04:10:00 [facility] PROTHROMBIN TIME/INR 2020-01-20 04:10:00 [facility] CALCIUM, IONIZED 2020-01-20 04:10:00 [facility] COM[facility]ENSIVE METABOLIC 2020-01-20 04:10:00 [facility] PHOSPHORUS 2020-01-20 04:10:00 [facility] MAGNESIUM 2020-01-20 04:10:00 Leena Arias [facility] CBC W/PLT COUNT & AUTO 2020-01-20 04:10:00 Ha [facility] (CELLAVISION MANUAL DIFF) 2020-01-20 04:10:00 [facility] LEUKO-REDUCED RBC 2020-01-19 23:54:00 Miguel Angel, Kaylin [facility] URINALYSIS W/ MICROSCOPIC 2020-01-19 23:19:00 L[facility] SODIUM, RANDOM URINE 2020-01-19 23:19:00 [facility] BLOOD CULTURE 2020-01-19 21:45:00 [facility] BLOOD CULTURE 2020-01-19 21:44:00 [facility] [id number] 2020-01-19 21:43:00 Kristofer Montgomery [facility] TRANSFUSION SERVICE REPORT 2020-01-19 18:01:08 Moses [facility] R & L CATH / CORONARY 2020-01-19 16:30:[address] [facility] ANGIOS (+/- LV) [facility] BLOOD GAS, ARTERIAL 2020-01-19 15:44:00 Kristofer Montgomery [facility] CRYPTOCOCCAL ANTIGEN 2020-01-19 15:04:00 Kristofer Montgomery [facility] MUMPS ANTIBODY, IGG 2020-01-19 15:04:00 Kristofer Montgomery [facility] RUBELLA ANTIBODY, IGG 2020-01-19 15:04:00 AmericaKristofer theodore [facility] RUBEOLA ANTIBODY IGG 2020-01-19 15:04:00 AmericaKristofer theodore [facility] VARICELLA ZOSTER ANTIBODY, 2020-01-19 15:04:00 AmericaKristofer theodore [facility] PROTHROMBIN TIME/INR 2020-01-19 11:00:00 [place] [facility] US BREAST BILATERAL 2020-01-19 09:10:00 Kristofer Montgomery [facility] HEPATIC FUNCTION PANEL 2020-01-19 04:11:00 [place] [facility] CALCIUM, IONIZED 2020-01-19 04:11:00 Leland [facility] COMPREHENSIVE METABOLIC 2020-01-19 04:11:00 [facility] PHOSPHORUS 2020-01-19 04:11:00 [facility] B-TYPE NATRIURETIC FACTOR 2020-01-19 04:11:00 [facility] ALDOSTERONE 2020-01-19 04:11:00 [place] [facility] RENIN, PLASMA 2020-01-19 04:11:00 [place] Rehan Rich [facility] METANEPHRINES 2020-01-19 04:11:00 [place] Rehan [facility] MAGNESIUM 2020-01-19 04:11:00 Leena Arias [facility] CBC W/PLT COUNT & AUTO 2020-01-19 04:11:[address] [facility] IV 2020-01-19 00:40:00 HoustonRoscoe [facility] CONTRAST [facility] US RENAL COMPLETE 2020-01-19 00:20:00 Roscoe Ahmadi [facility] PREPARE LEUKO-REDUCED 2020-01-18 23:54:00 [place] [facility] PLATELETS [facility] URINALYSIS W/ MICROSCOPIC 2020-01-18 20:49:00 [facility]eland [facility] SODIUM, RANDOM URINE 2020-01-18 20:49:00 [facility] PROTEIN, RANDOM URINE 2020-01-18 20:49:00 [facility] CREATININE, RANDOM URINE 2020-01-18 20:49:00 [facility] EOSINOPHIL SMEAR, URINE 2020-01-18 20:49:00 [facility] TRANSFUSION SERVICE REPORT 2020-01-18 18:31:51 ProviderBozena [facility] - - SCAN Scanning [facility] TRANSFUSE LEUKO-REDUCED RED 2020-01-18 13:21:26 Miguel Angel [facility] BLOOD CELLS [facility] NM MYOCARDIAL PERFUSION 2020-01-18 09:20:00 Brian Browning [facility] - PET/CT (REST & STRESS) Medical C enter TREADMILL 2020-01-18 08:57:35 Unknown, Hl7 [facility] TOLERANCE(NON-NUCLEAR Medical Ce nter TREADMILL) ECG 12-LEAD 2020-01-18 08:46:42 Unknown, Hl7 [facility] BASIC METABOLIC PANEL (7) 2020-01-18 06:10:00 [place] [facility] MAGNESIUM 2020-01-18 06:10:00 [place] [facility] T SPOT TB 2020-01-18 06:10:00 Miguel Angel [facility] HEPATIC FUNCTION PANEL 2020-01-18 06:10:00 Galdino [facility] CBC W/PLT COUNT & AUTO 2020-01-18 06:10:00 [place] [facility] (CELLAVISION MANUAL DIFF) 2020-01-18 06:10:00 [place] [facility] ECG 12-LEAD 2020-01-17 11:05:03 Brian Browning [facility] REPORT OF PROCEDURE - 2020-01-17 09:11:05 Doris [facility] REPORT OF PROCEDURE - 2020-01-17 08:39:23 Doris [facility] TISSUE EXAM 2020-01-17 08:15:00 Doris [facility] TRANSFUSE LEUKO-REDUCED 2020-01-17 08:04:58 [place] [facility] UPPER ENDOSCOPY,BIOPSY 2020-01-17 07:55:00 Doris [facility] COLONOSCOPY 2020-01-17 07:55:00 Doris [facility] PROTHROMBIN TIME/INR 2020-01-17 03:56:00 Mary Roper [facility] BASIC METABOLIC PANEL (7) 2020-01-17 03:56:00 [place] [facility] MAGNESIUM 2020-01-17 03:56:00 [place] [facility] CBC W/PLT COUNT & AUTO 2020-01-17 03:56:00 [place] [facility] (CELLAVISION MANUAL DIFF) 2020-01-17 03:56:00 [place] [facility] TRANSFUSION SERVICE REPORT 2020-01-16 18:00:27 Moses, Bozena [facility] - - [facility] BLOOD CULTURE 2020-01-16 12:25:00 [facility] LACTATE DEHYDROGENASE (LDH) 2020-01-16 12:24:00 Juan Minor [facility] RETICULOCYTE COUNT 2020-01-16 12:23:00 Juan Minor [facility] BLOOD CULTURE 2020-01-16 11:25:00 [facility] HIV-1 ANTIGEN WITH HIV-1/2 2020-01-16 11:25:00 Shady Gonzáles [facility] VITAMIN B12 AND FOLATE 2020-01-16 11:25:00 Juan Minor [facility] HAPTOGLOBIN 2020-01-16 11:25:00 Juan Minor [facility] US ABDOMINAL WITH DOPPLER 2020-01-16 06:30:00 Shady Gonzáles [facility] PROTHROMBIN TIME/INR 2020-01-16 03:38:[address] [facility] HEPATIC FUNCTION PANEL 2020-01-16 03:38:[address] [facility] BASIC METABOLIC PANEL (7) 2020-01-16 03:38:00 [place] [facility] MAGNESIUM 2020-01-16 03:38:00 [place] [facility] CBC W/PLT COUNT & AUTO 2020-01-16 03:38:00 [place] [facility] DRUG SCREEN, URINE, 2020-01-15 21:52:00 [facility]LOOD TYPING, AUTOMATED 2020-01-15 18:16:00 Shady Gonzáles [facility] CT CHEST WITHOUT IV 2020-01-15 17:54:00 Shady Gonzáles [facility] XR CHEST 2 VIEWS 2020-01-15 16:57:00 Shady Gonzáles [facility] XR MANDIBLE 4 VIEWS MIN 2020-01-15 16:39:00 Shady Gonzáles [facility] VITAMIN D, 25-HYDROXY 2020-01-15 16:17:00 EliecerShady davidson [facility] COMPREHENSIVE METABOLIC 2020-01-15 16:17:[address] [facility] BILIRUBIN, DIRECT 2020-01-15 16:17:00 Shady Gonzáles [facility] CALCIUM, IONIZED 2020-01-15 16:17:00 Shady Gonzáles [facility] ZINC 2020-01-15 16:17:00 [facility] ANTI-NUCLEAR ANTIBODY (REILLY) 2020-01-15 16:17:00 EliecerShady davidson [facility] ACTIN (SMOOTH MUSCLE) 2020-01-15 16:17:00 Shady Gonzáles [facility] ANTIBODY, IGG [facility] MITOCHONDRIA M2 ANTIBODY 2020-01-15 16:17:00 EliecerShady davidson [facility] (IGG) [facility] IRON, TIBC, % SAT. (WITHOUT 2020-01-15 16:17:00 EliecerShady davidson [facility] FERRITIN) [facility] FERRITIN 2020-01-15 16:17:00 EliecerShady davidson [facility] TRANSFERRIN 2020-01-15 16:17:00 Shady Gonzáles [facility] XNVKK-4-HVHESMMAFLS\\, SERUM 2020-01-15 16:17:00 Shady Gonázles [facility] CERULOPLASMIN 2020-01-15 16:17:00 Shady Gonzáles [facility] ALPHA FETOPROTEIN (AFP), 2020-01-15 16:17:00 EliecerShady davidson [facility] TUMOR MARKER [facility] CARCINOEMBRYONIC ANTIGEN 2020-01-15 16:17:00 Shady Gonzáles [facility] (CEA) [facility] CARBOHYDRATE ANTIGEN 19-9 2020-01-15 16:17:00 Shady Gonzáles [facility] (CA 19-9) [facility] HEMOGLOBIN A1C 2020-01-15 16:17:00 Shady Gonzáles [facility] TSH 2020-01-15 16:17:00 EliecerShady davidson [facility] T3 2020-01-15 16:17:00 Shady Gonzáles [facility] T4 2020-01-15 16:17:00 Shady Gonzáles [facility] ETHANOL 2020-01-15 16:17:00 Shady Gonzáles [facility] FIBRINOGEN 2020-01-15 16:17:00 Shady Gonzáles [facility] PROTHROMBIN TIME/INR 2020-01-15 16:17:00 EliecerShady davidson [facility] APTT 2020-01-15 16:17:00 Shady Gonzáles [facility] HEPATITIS A ANTIBODY, IGM 2020-01-15 16:17:00 EliecerShady davidson [facility] HEPATITIS B SURFACE ANTIGEN 2020-01-15 16:17:00 EliecerShady davidson [facility] HEPATITIS B SURFACE 2020-01-15 16:17:[address] [facility] ANTIBODY [facility] HEPATITIS B CORE ANTIBODY, 2020-01-15 16:17:00 EliecerShady davidson [facility] TOTAL [facility] HEPATITIS B CORE ANTIBODY, 2020-01-15 16:17:00 Shady Gonzáles [facility] HEPATITIS C ANTIBODY 2020-01-15 16:17:00 Shady Gonzáles [facility] RPR 2020-01-15 16:17:00 EliecerShady davidson [facility] CYTOMEGALOVIRUS ANTIBODY, 2020-01-15 16:17:00 EliecerShady daivdson [facility] IGG [facility] CYTOMEGALOVIRUS ANTIBODY, 2020-01-15 16:17:00 Shady Gonzáles Irene [facility] IGM [facility] EBV ANTIBODY, IGM 2020-01-15 16:17:00 Shady Gonzáles [facility] TYPE AND SCREEN, AUTOMATED 2020-01-15 16:17:00 Shady Gonzáles [facility] 2D ECHO W/ DOPPLER 2020-01-15 14:45:[address] [facility] (CW/PW/COLOR) [facility] CAROTID DOPPLER BILATERAL 2020-01-15 14:41:00 Shady Gonzáles Irene [facility] SODIUM, RANDOM URINE 2020-01-15 12:46:00 Graciela Stone [facility] CREATININE, RANDOM URINE 2020-01-15 12:46:00 Graciela Stone [facility] AMMONIA 2020-01-15 08:32:00 Stone, [facility] HEPATITIS PANEL, ACUTE 2020-01-15 08:32:[address] [facility] BASIC METABOLIC PANEL (7) 2020-01-15 03:56:[address] [facility] PROTHROMBIN TIME/INR 2020-01-15 03:56:[address] [facility] HEPATIC FUNCTION PANEL 2020-01-15 03:56:[address] [facility] MAGNESIUM 2020-01-15 03:56:[address] [facility] URIC ACID 2020-01-15 03:56:00 Eliecer [facility] GAMMA GLUTAMYL TRANSFERASE 2020-01-15 03:56:00 Eliecer [facility] (GGT) [facility] PHOSPHORUS 2020-01-15 03:56:00 Eliecer [facility] LIPID PANEL 2020-01-15 03:56:00 Eliecer [facility] CBC W/PLT COUNT & AUTO 2020-01-15 03:56:00 Ramone [facility] (CELLAVISION MANUAL DIFF) 2020-01-15 03:56:[address] [facility] BASIC METABOLIC PANEL (7) 2020-01-14 21:59:[address] [facility] PROTHROMBIN TIME/INR 2020-01-14 21:59:[address] [facility] HEPATIC FUNCTION PANEL 2020-01-14 21:59:[address] [facility] CBC W/PLT COUNT & AUTO 2020-01-14 21:59:00 Ramone [facility] SARS-COV2/RT-PCR ([facility] & 2020-01-14 19:28:00 Tameka Hunter [facility] I [facility] - REF LABS) [facility] BASIC METABOLIC PANEL (7) 2020-01-03 14:34:00 Larry, Line CH I [facility] HEPATIC FUNCTION PANEL 2020-01-03 14:34:00 Larry [facility] PROTHROMBIN TIME/INR 2020-01-03 14:34:00 [facility] ALPHA FETOPROTEIN (AFP), 2020-01-03 14:34:00 [facility] - TUMOR MARKER [facility] CBC W/PLT COUNT & AUTO 2020-01-03 14:34:00 [facility] DIFFERENTIAL [facility] Plan of Care Planned Activity Planned Date Details Comments Source Future Scheduled 2030-01-16 Screening for YAIMA Smiley [facility] - Test 00:00:00 malignant neoplasm of [facility] colon (procedure) [code = 498197468] Future Scheduled 2023-01-14 [facility] (procedure) [code = [facility] 17496837] Future Scheduled 2020-03-28 INFLUENZA VACCINE (#1) [facility]:00 [code = INFLUENZA Medical Ce nter VACCINE (#1)] Future Scheduled 2020-02-26 INFLUENZA VACCINE [place] [facility] Test 00:00:00 [code = INFLUENZA VACCINE] Future Scheduled 2019-07-28 Medicare IPPE (WELCOME [facility] - Test 00:00:00 TO MEDICARE) [code = [facility] Medicare IPPE (WELCOME TO MEDICARE)] Future Scheduled 2019 65+ PNEUMOCOCCAL [facility] Test 00:00:00 VACCINE (1 of 1 - PPSV23) [code = 65+ PNEUMOCOCCAL VACCINE (1 of 1 - PPSV23)] Future Scheduled 2019 PNEUMOCOCCAL 65+ Y[facility] - Test 00:00:00 (2 of 2 - PPSV23) Medical Ce nter [code = PNEUMOCOCCAL 65+ YRS (2 of 2 - PPSV23)] Future Scheduled 2004 BREAST CANCER [facility] Test 00:00:00 SCREENING [code = BREAST CANCER SCREENING] Future Scheduled 2004 COLONOSCOPY SCREENING [facility] Test 00:00:00 [code = COLONOSCOPY SCREENING] Future Scheduled 2004 SHINGLES VACCINES (#1) [place] [facility] Test 00:00:00 [code = SHINGLES VACCINES (#1)] Future Scheduled 1975 Screening for [facility] Test 00:00:00 malignant neoplasm of cervix (procedure) [code = 325808055] Future Scheduled [address] [facility] - Test 00:00:00 [facility] cervix (procedure) [code = 634393601] Future Scheduled [address] [facility] - Test 00:00:00 malignant [facility] breast (procedure) [code = 693021286] Encounters Start End Encounter Admission Attending Care Care Encounter Source Date/Time Date/Time Type Type Clinicians Facility Department ID 2020-06-19 2020-06-19 Outpatient [facility] [id number] [facility] 2020-05-02 2020-05-02 Outpatient [facility] [id number] [facility] 2020-04-19 2020-04-19 Outpatient [facility] [id number] [facility] 2020-02-21 2020-02-21 Outpatient Rafia Moratayat [id number] 16[facility]00 16:00:00 [facility] Out[facility] Clinics 2020-02-14 2020-02-14 Outpatient [facility] [id number] 10:00:00 10:00:00 [facility] Out[facility] Clinics 2020-02-03 2020-02-03 Outpatient [facility] [id number] 11:48:00 11:48:00 [facility] Out[facility] Clinics 2020-01-13 2020-01-13 Outpatient Rafia Moratayat [id number] 14:40:00 14:40:00 [facility] Medicine Medicine Outpati ent Clinics 2020-01-03 2020-01-03 Transition [place] [id number] 00:00:00 00:00:00 of Gillian Ellsworth [id number] [place] [id number] 2019-12-28 2019-12-31 [facility] Yahir Borden [facility] [id number] 21:39:45 13:10:00 Encounter Jacklyn Lewis [id number] [place] [id number] [place] [id number] 2019-11-03 2019-11-03 [facility] [id number] 13:20:00 13:20:00 [facility] Medicine Medicine Outpati ent Clinics 2019-09-10 2019-09-10 [facility] [id number] 09:30:00 09:30:00 [facility] Medicine Medicine Outpati ent Clinics 2019-08-31 2019-08-31 [facility] [id number] 08:00:00 08:00:00 [facility] Medicine Medicine Outpati ent Clinics 2019-08-24 2019-08-24 [facility] [id number] 10:41:00 10:41:00 [facility] Medicine Medicine Outpati ent Clinics 2019-08-19 2019-08-19 [facility] [id number] 13:00:00 13:00:00 [facility] Medicine Outpati ent Clinics Results Test Description Test Time Test Comments Results Result Comments Source Comprehensive metabolic panel 2020-06-13 18:31:00 Test Item Value Reference Range Interpretation Comme nts Glucose (test code = 98 mg/dL 65-139 Non-fasting ) reference inter beatriz BUN (test code = 36 mg/dL 7-25 H 20101128) Creatinine (test code = 2.03 mg/dL 0.5-0.99 H For patients >49 years 20130920) of age, the ref erence limitfor Creati nine is approximately 1 3% higher for peopleident ified as -Marisela n. eGFR If NonAfricn Am 25 > OR = 60 L (test code = 6850456) mL/min/1.73m2 eGFR If Africn Am (test 29 > OR = 60 L code = 2163618) mL/min/1.73m2 BUN/Creatinine Ratio 18 6- 22 (calc) (test code = ) Sodium (test code = 137 mmol/L 135-091 7959093) Potassium, Serum (test 4.3 mmol/L 3.5-5.3 code = 20101213) Chloride (test code = 107 mmol/L 98-875 4142557) Carbon Dioxide, Total 23 mmol/L 20-32 (test code = ) Calcium, Serum (test 11.1 mg/dL 8.6-10.4 H code = 20101125) Protein, Total, Serum 5.6 g/dL 6.1-8.1 L (test code = 20101202) Albumin (test code = 3.3 g/dL 3.6-5.1 L ) GLOBULIN (QUEST) (test 2.3 1.9- 3.7 g/dL code = 5079766) (calc) Albumin Globulin Ratio 1.4 1.0- 2.5 (calc) (test code = 1759-0) Bilirubin, Total (test 4.0 mg/dL 0.2-1.2 H code = 20101204) Alkaline Phosphatase, S 91 U/L 37-153 (test code = 6768-6) AST (SGOT) (test code = 27 U/L 10-35 20101208) ALT (SGPT) (test code = 12 U/L 6-29 ) VALENTE (test code = VALENTE) FASTING: NO RAC (test code = RAC) Performing Organization Information: Site ID: RGA Name: [facility] Address: [address] [place] [address] Director: Alonso Carrasco Lab Interpretation Abnormal (test code = 72041-3) [facility], [id number] 18:31:00 Test Item Value Reference Range Interpretation Comments Bilirubin, Total (test 4.0 mg/dL 0.2-1.2 H code = 20101204) Bilirubin, Direct (test 1.3 mg/dL < OR = 0.2 H code = 20101216) Bilirubin, Indirect 2.7 0.2- 1.2 mg/dL H (test code = 2047857) (calc) VALENTE (test code = VALENTE) FASTING: NO RAC (test code = RAC) Performing Organization Information: Site ID: JOSHUA Name: [facility] Address: [address] [place] [phone] Director: Alonso Carrasco Lab Interpretation Abnormal (test code = 03140-4) [facility] with platelet count + automated [id number] 18:31:00 Test Item Value Reference Interpretation Comments Range WBC (test code = 5.3 3.8- 10.8 ) Thousand/uL RBC (test code = 2.43 3.80- 5.10 L 789-8) Million/uL Hemoglobin (test 8.8 g/dL 11.7-15.5 L code = ) Hematocrit (test 24.8 % 35-45 L code = ) MCV (test code = 102.1 fL 80-100 H ) MCH (test code = 36.2 pg 27-33 H ) MCHC (test code = 35.5 g/dL 32-36 ) RDW (test code = 13.7 % 11-15 Hypochromas ia 1 ) +Macrocytosis 1 + Platelets (test 58 140- 400 L Review of th e code = ) Thousand/uL peripheral s mear revealsdecrease d numbers of plat elets. MPV (test code = 10.7 fL 7.5-12.5 7927186) # Neutros (test 3191 1,500 - 7,800 code = 6923598) cells/uL # Lymphs (test code 949 850- 3,900 = 731-0) cells/uL # Monos (test code 615 200- 950 = 5322147) cells/uL # Eos (test code = 514 15- 500 H 1-2) cells/uL # Baso (test code = 32 0- 200 704-7) cells/uL % Neutros (test 60.2 % code = ) % Lymphs (test code 17.9 % = 20200217) % Monos (test code 11.6 % = ) % Eos (test code = 9.7 % 20200215) % Baso (test code = 0.6 % 20200216) Comment(s) (test Review of p eripheral code = 20200222) smear confirmsautomat ed results. VALENTE (test code = FASTING: NO VALENTE) RAC (test code = Performing RAC) Organization Information: Site ID: RGA Name: [facility] Address: [address] [place] [phone] Director: Alonso Carrasco Lab Interpretation Abnormal (test code = 48144-2) [facility] HospitalProthrombin time/[id number] 18:31:00 Test Item Value Reference Range Interpretation Comments INR (test code = 1.2 H Reference R von 2631111) 0.9-1.1Moderate - intensity Warfarin Therap y 2.0-3.0Higher-i n tensity Warfari n Therapy 3.0-4.0 PT (test code = 11.9 9.0- 11.5 sec H For additio nal ) information, please refer tohttp://educat i on.questdiagnos t [employer]/faq/FAQ 1 04(This link is being provided for informational/e d ucational purposes only.) VALENTE (test code = VALENTE) FASTING: NO RAC (test code = RAC) Performing Organization Information: Site ID: RGA Name: [facility] Address: [address] [place] [phone] Director: Alonso Carrasco Lab Interpretation Abnormal (test code = 68010-7) [facility] HospitalPLATELET [id number] 18:02:00 Test Item Value Reference Range Interpretation Comments Platelet Estimate (test DECREASED ADEQUATE A code = 71894-3) VALENTE (test code = VALENTE) FASTING:NOFASTING: NO RAC (test code = RAC) Performing Organization Information: Site ID: RGA Name: [facility] Address: [address] [place] [address] Director: Alonso Carrasco Lab Interpretation (test Abnormal code = 42380-3) [facility] Hospital[facility]ILIRUBIN, [id number] 15:57:00 Test Item Value Reference Range Interpretation Comments BILIRUBIN DIRECT (BEAKER) (test 1.9 mg/dL 0.1-0.5 H code = 706) Quality Control Coordinator ID - BSCOMPREHENSIVE METABOLIC [id number] 15:57:00 Test Item Value Reference Range Interpretation [...] S NOT APPLICABLE FOR DIALYSIS PATIEN TS. Quality Control Coordinator ID - BSSpecimen moderately ictericAlpha fetoprotein (AFP), tumor marker 2020-04-11 15:41:00 Test Item Value Reference Range Interpretation Comments Alpha-Fetoprotein (test code <2.0 <10.0 ng/mL = 1834-1) VALENTE (test code = VALENTE) Quality Control Coordinator ID - BS Lab Interpretation (test Normal code = 48118-1) [facility] Hospital[facility] FETOPROTEIN (AFP), TUMOR [id number] 15:41:00 Test Item Value Reference Range Interpretation Comments ALPHA-FETOPROTEIN (BEAKER) (test code < ng/mL <10.0 = 1094) Quality Control Coordinator ID - BSRAD, BONE DENSITY [id number] 13:34:00Referring: Dr. Rowdy Zhang for Exam:->liver transplant waiting listFINAL REPORT Bone density study, 04/11/2020 Clinical History: Screening Bone mineral density measurementLumbar spine0.866 gm/oa4Tzqqnfo neck0.714 gm/cm2 Standard deviation fromyoung adult population [...] one or more fragility fractures Signed: Jorge [place] Verified Date/Time: 04/11/2020 13:34:32 Reading Location: [address] Room XR dxa bone density [id number] 13:34:00 Interface, External Ris In - 04/11/2020 1:36 PM CDTFINAL REPORT Bone densitystudy, 04/11/2020 Clinical History: Screening Bone mineral density measurementLumbar spine0.866 gm/er1Rsiyigz neck0.714 gm/cm2 Standard deviation from young adult [...] MDReport Verified Date/Time: 04/11/2020 13:34:32 Reading Location: [address] Reading Room [facility][id number] 13:02:00 Test Item Value Reference Range Interpretation [...] heart valves.CBC with platelet count + automated [id number] 12:52:00 Test Item Value Reference Range Interpretation [...] K/CU MM L MPV (test code = 57527-1) 10.4 fL 9.4-12.3 nRBC (test code = [...] 2801) Lab Interpretation (test code = Abnormal 29526-4) [facility] W/PLT COUNT & AUTO [id number] 12:52:00 Test Item Value Reference Range Interpretation [...] (BEAKER) (test code = 2801) MISCELLANEOUS LAB [id number] 12:14:00 Test Item Value Reference Range Interpretation Comments SCAN RESULT (test code = 1247455) Miscellaneous lab [id number] 12:14:00Scan ResultQUEST NON-INTERFACED LABCHI [facility] Hospital[facility]esium2020-07-21 13:17:00 Test Item Value Reference Range Interpretation Comments Magnesium (test code = 1.8 mg/dL 1.6-2.6 68229-7) VALENTE (test code = VALENTE) Quality Control Coordinator ID - LM Lab Interpretation (test Normal code = 02235-7) [facility]IUM2020-07-21 13:17:00 Test Item Value Reference Range Interpretation Comments MAGNESIUM (BEAKER) (test code = 1.8 mg/dL 1.6-2.6 627) Quality Control Coordinator ID - LMCOMPREHENSIVE METABOLIC [id number] 13:17:00 Test Item Value Reference Range Interpretation [...] S NOT APPLICABLE FOR DIALYSIS PATIEN TS. Quality Control Coordinator ID - LMSpecimen moderately ictericBILIRUBIN, [id number] 13:17:00 Test Item Value Reference Range Interpretation Comments BILIRUBIN DIRECT (BEAKER) (test 2.5 mg/dL 0.1-0.5 H code = 706) Quality Control Coordinator ID - LMPROTHROMBIN TIME/[id number] 13:05:00 Test Item Value Reference Range Interpretation [...] mechanical heart valves.CBC W/PLT COUNT & AUTO [id number] 12:59:00 Test Item Value Reference Range Interpretation [...] 0-1 PERCENT (BEAKER) (test code = 2801) [id number] 10:36:00 Test Item Value Reference Interpretation Comments Range Metanephrine (test 46 pg/mL < OR = 57 This mushtaq t was developed code = 6039022) and its anal ytical performance characteristics havebeen determined by [facility].It h as not been cleared or appr jean-claude by FDA. This assay has been validatedpursua nt to the CLIA regulation s and is used for clinic al purposes. Normetanephrine 213 pg/mL < OR = 148 H This test w as developed (test code = and its analyti steven 9654075) performance characteristics havebeen determined by [facility].It h as not been cleared or [...] Reference: (1) Latrice Lorenz et al, Plasma Live Study Manager mogranin A or Urine FractionatedMet anephrines Follow-Up Testi ng Improves the Diagnostic Accuracy of PlasmaFractiona madai Metanephrines f or Pheochromocytom a. The Journal of ClinicalEndocri nology and Metabolism 93 ( 1),91-95, 2008. For addit ional information, pl ease refer tohttp://educat ion.[employer]/f aq/MetFract Free(This link is being provided for informational/e ducational purposes only.) This test was developed a nd its analytical perf ormance characteristics havebeen determined by [facility].It h as not been cleared or appr jean-claude by FDA. This assay has been validatedpursua nt to the CLIA regulation s and is used for clinic al purposes. VALENTE (test code = Performing Lab VALENTE) EZ [facility] [address] [place] [address] Mark Encarnacion MD, PhD, AMINA Lab Interpretation Abnormal (test code = 24640-2) [facility] HospitalCatecholamines, Fractionated, 24hr [id number] 11:55:00 Test Item Value Reference Interpretation Comments Range TOTAL VOLUME (test 1000 mL code = 0962177) Epinephrine,24 Hr <2 2- 24 mcg/24 h L Result b elow clinical Ur (test code = reportable r von for ) this analyte, w hich is 2 mcg/L.Repo rted result was calc ulated using 2 mcg/L. This test was develo ped and its analyti steven performance characteristics havebeen determ ined by [facility] [facility] .It has not been cl eared or approved by FDA. This assay has been validatedpursua nt to the CLIA regula tions and is used for clinical purpos es. Norepinephrine 9 15- 100 mcg/24 L This test was (test code = h developed and i ts ) analytical performance characteristics havebeen determ ined by [facility] .It has not been cl eared or approved by FDA. This assay has been validatedpursua nt to the CLIA regula tions and is used for clinical purpos es. Calculated Total 9 26- 121 mcg/24 L This mushtaq t was E+Ne (test code = h developed and its 20190907) analytical performance characteristics havebeen determ ined by [facility] .It has not been cl eared [...] steven performance characteristics havebeen determ ined by [facility] .It has not been cl eared or approved by FDA. This assay has been validatedpursua nt to the [place] regula tions and is used for clinical purpos es. Creatinine,24 Hr 0.88 0.50- 2.15 Urin (test code = g/24 h ) VALENTE (test code = Performing Lab VALENTE) EZ [employer] [facility] [address] [place] [address] Mark Encarnacion MD, PhD, AMINA Lab Interpretation Abnormal (test code = 03819-4) [facility] [id number] 12:33:00 Test Item Value Reference Range Interpretation Comments SCAN RESULT (test code = 0086342) [id number] [id number] 16:28:00 Test Item Value Reference Range Interpretation Comments Lab Interpretation (test code = Normal 43762-4) [facility] HospitalMetanephrines, 24 hour [id number] 12:57:00 Test Item Value Reference Interpretation Comments Range TOTAL VOLUME (test 1000 mL code = 5006925) Metanephrine (test 205 90- 315 This mushtaq t was code = 6695035) mcg/24 h developed an d its analytical perf ormance characteristics havebeen determ ined by [employer] .It has not been cleare d or approved by FDA . This assay has been validatedpursua nt to the CLIA regula tions and is used for clinical purpos es. Normetanephrine 657 122- 676 This test w as (test code = mcg/24 h developed and i ts 20191029) analytical perf ormance characteristics havebeen determ ined by [employer] .It has not been cleare d or [...] perf ormance characteristics havebeen determ ined by [employer] .It has not been cleare d or approved by FDA . This assay has been validatedpursua nt to the CLIA regula tions and is used for clinical purpos es. VALENTE (test code = Performing Lab VALENTE) EZ [employer] [facility] [address] [place] [address] Mark Encarnacion MD, PhD, AMINA Lab Interpretation Abnormal (test code = 20480-5) [facility] HospitalCalcium, [id number] 05:42:00 Test Item Value Reference Range Interpretation Comments Calcium, Ion (test code = 1994-) 1.11 mmol/L 1.12-1.27 L pH, Blood (test code = 88093-9) 7.41 Lab Interpretation (test code = Abnormal 13946-7) [facility] CenterCALCIUM, [id number] 05:42:00 Test Item Value Reference Range Interpretation Comments CALCIUM IONIZED (BEAKER) (test 1.11 mmol/L 1.12-1.27 L code = 698) PH, BLOOD (BEAKER) (test code = 7.41 1810) COMPREHENSIVE METABOLIC [id number] 04:57:00 Test Item Value Reference Range Interpretation [...] S NOT APPLICABLE FOR DIALYSIS PATIEN TS. Quality Control Coordinator ID - BSSpecimen moderately ictericHepatic function [id number] 04:53:00 Test Item Value Reference Range Interpretation Comments Protein, Total (test code 5.7 6.0- 8.3 gm/dL L = 2885-2) Albumin (test code = 3.4 g/dL 3.5-5 L 37850-8) Total Bilirubin (test 6.9 mg/dL 0.2-1.2 H code = 1974-2) Bilirubin, Direct (test 2.2 mg/dL 0.1-0.5 H code = 1967-7) Alkaline Phosphatase 58 U/L 40-150 (test code = 6768-6) AST (test code = 1920-8) 36 U/L 5-34 H ALT (test code = 1742-6) 13 U/L 6-55 VALENTE (test code = VALENTE) Quality Control Coordinator ID - BSSpecimen moderately icteric Lab Interpretation (test Abnormal code = 02193-3) [facility] HospitalPhosphorus2020-07-01 04:53:00 Test Item Value Reference Range Interpretation Comments Phosphorus (test code = 3.2 mg/dL 2.3-4.7 2777-1) VALENTE (test code = VALENTE) Quality Control Coordinator ID - BS Lab Interpretation (test Normal code = 90699-2) [facility] HospitalPHOSPHORUS2020-07-01 04:53:00 Test Item Value Reference Range Interpretation Comments PHOSPHORUS (BEAKER) (test code = 3.2 mg/dL 2.3-4.7 604) Quality Control Coordinator ID - [id number] 04:53:00 Test Item Value Reference Range Interpretation Comments MAGNESIUM (BEAKER) (test code = 1.7 mg/dL 1.6-2.6 627) Quality Control Coordinator ID - BSHEPATIC FUNCTION [id number] 04:53:00 Test Item Value Reference Range Interpretation [...] (test code = 13 U/L 6-55 347) Quality Control Coordinator ID - BSSpecimen moderately ictericCBC W/PLT COUNT & AUTO [id number] 04:42:00 Test Item Value Reference Range Interpretation [...] PERCENT (BEAKER) (test code = 2801) PROTHROMBIN TIME/[id number] 04:36:00 Test Item Value Reference Range Interpretation [...] No organisms seen code = 1123) [facility] HospitalBODY FLUID CULTURE + GRAM [id number] 12:05:00 Test Item Value Reference Range Interpretation Comments CULTURE (BEAKER) (test No growth code = 1095) GRAM STAIN RESULT <1+ White blood cells (BEAKER) (test code = seen 1123) GRAM STAIN RESULT No organisms seen (BEAKER) (test code = 68301) Manual [id number] 07:35:00 Test Item Value Reference Range Interpretation [...] Poikilocytes (test code = 2+ moderate 966) Quincy Cells (test code = 2+ moderate 474) Artifact (test code = Present 3432) Platelet Conc (test code Decreased = 3438) VALENTE (test code = VALENTE) Quality Control Coordinator ID - [id number] ID - Maria Del Carmen AnguianoAgnieszka comments: Slide comments: Lab Interpretation (test Abnormal code = 29621-9) [facility] W/PLT COUNT & AUTO [id number] 07:35:00 Test Item Value Reference Range Interpretation [...] CONCENTRATION Decreased (CELLAVISION)(BEAKER) (test code = 3438) Quality Control Coordinator ID - [id number] ID - Maria Del Carmen Quintana comments: Slide comments:Basic Metabolic Lenes3104-11-05 06:24:00 Test Item Value Reference Range Interpretation Comments Sodium (test code = 140 meq/L 129-813 4377-2) Potassium (test code 3.4 meq/L 3.5-5.1 L = 2823-3) Chloride (test code = 105 meq/L 98-107 2075-0) CO2 (test code = 25 meq/L 22-29 2028-9) BUN (test code = 31 mg/dL 7-21 H 3094-0) Creatinine (test code 2.35 mg/dL 0.57-1.25 H = 2160-0) Glucose (test code = 108 mg/dL 70-105 H 2345-7) Calcium (test code = 8.7 mg/dL 8.4-10.2 87834-8) EGFR (test code = 21 mL/min/1.73 [place] [address]-1) NOT ACCURATE CREATININE CLEARANCE IN PREDICTING GLOMERULAR FILTRATION RATE . ESTIMATED GFR I S NOT APPLICABLE FOR DIALYSIS PATIENTS. VALENTE (test code = VALENTE) Quality Control Coordinator ID - PIAYA LSpecimen moderately icteric Lab Interpretation Abnormal (test code = 55261-5) [facility] HospitalBASI METABOLIC [id number] 06:24:00 Test Item Value Reference Range Interpretation [...] S NOT APPLICABLE FOR DIALYSIS PATIEN TS. Quality Control Coordinator ID Mercedes Jane moderately ictericHEPATIC FUNCTION [id number] 06:23:00 Test Item Value Reference Range Interpretation [...] (test code = 13 U/L 6-55 347) Quality Control Coordinator MABLE Jane moderately tvbevqeRWXGXRKZO0188-70-15 06:22:00 Test Item Value Reference Range Interpretation Comments MAGNESIUM (BEAKER) (test code = 1.8 mg/dL 1.6-2.6 627) Quality Control Coordinator MABLE MEYER LPROTHROMBIN TIME/[id number] 04:22:00 Test Item Value Reference Range Interpretation [...] No growth in 5 days 6463-4) [facility] HospitalBLOOD [id number] 23:00:00 Test Item Value Reference Range Interpretation Comments CULTURE (BEAKER) (test No growth in 5 days code = 1095) BLOOD [id number] 23:00:00 Test Item Value Reference Range Interpretation Comments CULTURE (BEAKER) (test No growth in 5 days code = 1095) DLCO (single breath diffusion)2020-01-24 10:41:00Epifanio Giles, DIRECTOR COMMUNICATIONS, IMPORT SPECIALIST 01/24/2020 10:52 [facility] PFT CHARTING REPORT Infection Control/Hand Hygiene procedures followed throughout the encounter with patient: YesPatient Identification Method: Patient name verified on armband, and Medical record on armband, Is the order complete?: Yes Account ID#: [id number] Name: Cici Calderon Birthdate: 1955 Age: 64 [...] patient released from the lab without adverseoutcome.[facility] HospitalPulmonary Funct Lab [id number] 10:41:00Epifanio Giles RRT, IMPORT SPECIALIST 01/24/2020 10:52 [facility] PFT CHARTING REPORT Infection Control/Hand Hygiene procedures followed throughout the encounter with patient: YesPatient Identification Method: Patient name verified on armband, and Medical record on armband, Is the order complete?: Yes Account ID#: [id number] Name: Cici Calderon Birthdate: 1955 Age: 64 [...] patient released from the lab without adverseoutcome.[facility] HospitalLung [id number] 10:41:00Epifanio Giles RRT, IMPORT SPECIALIST 01/24/2020 10:52 [facility] PFT CHARTING REPORT Infection Control/Hand Hyg iene procedures followed throughout the encounter with patient: YesPatient Identification Method: Patient name verified on armband, and Medical record on armband, Is the order complete?: Yes Account ID#: [id number] Name: Cici Calderon Birthdate: 1955 Age: 64 [...] patient released from the lab without adverseoutcome.[facility]6 MINUTE WALK(FOR LUNG TRANSPLANT ONLY)2020-01-24 10:20:00Janina Meehan RRT, IMPORT SPECIALIST 01/24/2020 2:39 [facility] PFT CHARTING REPORT Infection Control/Hand Hygiene procedures followed throughout the encounter with patient: YesPatient Identification Method: Patient name verified on armband, and Medical record on armband, Is the order complete?: Account ID#: [id number] Name: Cici Calderon Birthdate: 1 09/08/1954 Age: [...] released from the lab without adverse outcome.[facility] HospitalU/S, [id number] 09:43:00 Referring: Dr. Rowdy Christie to be ordered:->Body Fluid Culture (w/Gram Stain, C\\T\\S)Labs marko ordered:->Cell CountReason for exam:->Acute Kidney Injury - rule out SBP - can remove volume of up to 4-5 L (given ANDERS)Should this be performed at the bedside?->YesFINAL REPORT Ultrasound guided paracentesis Clinical History: Ascites. Sedation: None. Machine Tool Operator: Christine Ward PA-C Supervising Physician: Natan Chisholm MD Research Anthropologist: None. Estimated Blood Loss: < 1 mL. [...] anesthesia was achieved with lidocaine, a 5 Malay one-step catheter was advanced into theperitoneal cavity under ultrasound guidance. After completion of drainage, the catheter was removed.There was no evidence of complication. Impression:Successful ultrasound guided paracentesis. Signed:Natan Chisholm Verified Date/Time: 01/24/2020 09:43:05 Reading Location: [facility] P006J Ultrasound Reading Room US ospunkfcbehx9468-78-52 09:43:00Interface, External Ris In - 01/24/2020 9:45 AM CDTFINAL REPORT Ultrasound guided paracentesis Clinical History: Ascites. Sedation: None. Machine Tool Operator: Christine Ward PA-C Supervising Physician: Natan Chisholm MD Research Anthropologist: None. Estimated Blood Loss: < 1 mL. [...] anesthesia was achieved with lidocaine, a 5 Malay one-step catheter was advanced into the peritoneal cavity under ultrasound guidance. After completion of drainage, the catheter was removed. There was no evidence of complication. Impression:Successful ultrasound guided paracentesis. Signed: Natan Chisholm MDReport Verified Date/Time: 12/27 09:43:05 Reading Location: [facility] B1 P006J Ultrasound Reading Room [facility] at UCLABASIC METABOLIC [id number] 06:18:00 Test Item Value Reference Range Interpretation [...] S NOT APPLICABLE FOR DIALYSIS PATIEN TS. Quality Control Coordinator ID - MITCH LSpecimen moderately [id number] 05:38:00 Test Item Value Reference Range Interpretation Comments PHOSPHORUS (BEAKER) (test code = 2.8 mg/dL 2.3-4.7 604) Quality Control Coordinator ID - MITCH [id number] 05:38:00 Test Item Value Reference Range Interpretation Comments MAGNESIUM (BEAKER) (test code = 1.8 mg/dL 1.6-2.6 627) Quality Control Coordinator ID - MITCH LHEPATIC FUNCTION [id number] 05:38:00 Test Item Value Reference Range Interpretation [...] (test code = 11 U/L 6-55 347) Quality Control Coordinator ID - MITCH Jane moderately ictericCALCIUM, [id number] 04:56:00 Test Item Value Reference Range Interpretation Comments CALCIUM IONIZED (BEAKER) (test 1.09 mmol/L 1.12-1.27 L code = 698) PH, BLOOD (BEAKER) (test code = 7.43 1810) PROTHROMBIN TIME/[id number] 04:48:00 Test Item Value Reference Range Interpretation [...] mechanical heart valves.CBC W/PLT COUNT & AUTO [id number] 04:36:00 Test Item Value Reference Range Interpretation [...] (BEAKER) (test code = 2801) Prepare Leuko-Red [id number] 23:54:00 Test Item Value Reference Range Interpretation Comments CROSSMATCH (test code = 2264) COMPATIBLE Unit ABO (test code = A Pos 0130839) UNIT NUMBER (test code = [id number] 934-0) Status (test code = 2369653) TX_TIMEINCHART Blood Bank Product (test code RED BLOOD CELLS = 2263) PRODUCT CODE (test code = S6886H77 933-2) [facility] HospitalRubeola antibody [id number] 18:06:00 Test Item Value Reference Range Interpretation Comments Rubeola Ab, 235 AU/mL REFERENCE RANGE : Igg (test code <13.50 AU/mL = 47949-9) AU/mL Interpretation ==== <13.50 Negative 13.50-16.49 Equivocal >16.49 Positive A posi tive result indicate s that the patient hasantibody to measles virus. It does notdifferentiat e between an acti ve or past infection. The clinical diagno sis must be interpr eted inconjunction w ith clinical signs and symptoms ofthe patient. For additional information, pl ease refer tohttp://educat ion.[facility] stDiagnostics.c om/faq/ YJC436(This rosa k is being provided for informational/e ducatio nal purposes on ly.) VALENTE (test code Performing Lab = VALENTE) *[employer]. [address] [place] [phone] Sudhakar Hargrove MD [facility] HospitalMitochondria M2 Antibody (IgG)2020-01-23 13:50:00 Test Item Value Reference Range Interpretation Comments Mitochondria M2 Ab <20.0 See Note: U Reference (test code = Range:NEGATIVE: ) < OR = 20.0EQUIVOCAL: 20.1-24.9POSITI V E: > OR = 25.0 VALENTE (test code = Performing Lab VALENTE) [employer] [address] [address] Mark Encarnacion MD, PhD, AMINA [facility] HospitalMumps antibody, [id number] 13:38:00 Test Item Value Reference Range Interpretation [...] (test Performing Lab code = VALENTE) *[facility] [address] [place] [address] Sudhakar Hargrove MD [facility] W/PLT COUNT & AUTO [id number] 12:26:00 Test Item Value Reference Range Interpretation [...] CONCENTRATION Decreased (CELLAVISION)(BEAKER) (test code = 3438) Quality Control Coordinator ID - [id number] ID - Charo Jordan comments: Slide comments: BASIC METABOLIC [id number] 07:18:00 Test Item Value Reference Range Interpretation [...] S NOT APPLICABLE FOR DIALYSIS PATIEN TS. Quality Control Coordinator ID - MITCH LSpecimen moderately cpozhgnKMCMJNAWQ5525-31-07 07:17:00 Test Item Value Reference Range Interpretation Comments MAGNESIUM (BEAKER) 1.6 mg/dL 1.6-2.6 Specimen slightly (test code = 627) hemolyzed Quality Control Coordinator ID - MITCH [id number] 07:17:00 Test Item Value Reference Range Interpretation Comments PHOSPHORUS (BEAKER) 2.4 mg/dL 2.3-4.7 Specimen slightly (test code = 604) hemolyzed Quality Control Coordinator ID - MITCH LHEPATIC FUNCTION [id number] 07:17:00 Test Item Value Reference Range Interpretation [...] Specimen slightly (test code = 347) hemolyzed Quality Control Coordinator ID - MITCH LSpecimen moderately ictericB-type Natriuretic Factor (BNP) 2020-01-23 06:55:00 Test Item Value Reference Range Interpretation Comments BNP (test code = 99317-5) 2179 pg/mL 0-100 H VALENTE (test code = VALENTE) Quality Control Coordinator ID - MITCH L Lab Interpretation (test Abnormal code = 94508-5) [facility] HospitalB-TYPE NATRIURETIC FACTOR (BNP)2020-01-23 06:55:00 Test Item Value Reference Range Interpretation Comments B-TYPE NATRIURETIC PEPTIDE 2179 pg/mL 0-100 H (BEAKER) (test code = 700) Quality Control Coordinator ID - MITCH LCALCIUM, [id number] 06:31:00 Test Item Value Reference Range Interpretation Comments CALCIUM IONIZED (BEAKER) (test 1.07 mmol/L 1.12-1.27 L code = 698) PH, BLOOD (BEAKER) (test code = 7.45 1810) PROTHROMBIN TIME/[id number] 06:00:00 Test Item Value Reference Range Interpretation [...] for patients wiht mechanical heart valves.Prepare Leuko-Red [id number] 23:54:00 Test Item Value Reference Range Interpretation Comments Unit ABO (test code = 3075141) O Pos UNIT NUMBER (test code = [id number] 934-0) Status (test code = 5518461) TX_TIMEINCHART Blood Bank Product (test code PLATELETS = 2263) PRODUCT CODE (test code = X7823P03 933-2) [facility] W/PLT COUNT & AUTO [id number] 10:35:00 Test Item Value Reference Range Interpretation [...] CONCENTRATION Decreased (CELLAVISION)(BEAKER) (test code = 3438) Quality Control Coordinator ID - JohnOperator ID - Lizett OverholtUser comments: Slide comments: [id number] 10:05:00 Test Item Value Reference Range Interpretation Comments Cortisol, Total (test code 1.6 ug/dL 3.7-19.4 L = 2755) VALENTE (test code = VALENTE) Quality Control Coordinator ID - MITCH Linares Lab Interpretation (test Abnormal code = 05395-4) [facility] HospitalCORTISOL2020-06-27 10:05:00 Test Item Value Reference Range Interpretation Comments CORTISOL, TOTAL (BEAKER) (test code 1.6 ug/dL 3.7-19.4 L = 2755) Quality Control Coordinator ID - MITCH SWANNirect AHG (KRISTI)/Direct [id number] 07:49:00 Test Item Value Reference Range Interpretation Comments Direct AHG-IGG (test code = 1006-6) NEGATIVE Direct AHG-C3B, C3D (test code = NEGATVIE 1003-3) [facility] HospitalABORH, [id number] 07:37:00 Test Item Value Reference Range Interpretation Comments ABO Grouping (test code = 2588) A Rh Factor (test code = 2589) POS [facility] HospitalCALCIUM, [id number] 06:31:00 Test Item Value Reference Range Interpretation Comments CALCIUM IONIZED (BEAKER) (test 1.10 mmol/L 1.12-1.27 L code = 698) PH, BLOOD (BEAKER) (test code = 7.44 1810) BASIC METABOLIC [id number] 06:20:00 Test Item Value Reference Range Interpretation [...] S NOT APPLICABLE FOR DIALYSIS PATIEN TS. Quality Control Coordinator ID - MITCH LSpecimen moderately [id number] 06:12:00 Test Item Value Reference Range Interpretation Comments MAGNESIUM (BEAKER) (test code = 1.7 mg/dL 1.6-2.6 627) Quality Control Coordinator ID - MITCH LHEPATIC FUNCTION [id number] 06:12:00 Test Item Value Reference Range Interpretation [...] (test code = 10 U/L 6-55 347) Quality Control Coordinator ID - MITCH Goetzimeyahaira moderately ictericPROTHROMBIN TIME/[id number] 05:48:00 Test Item Value Reference Range Interpretation [...] is2.5-3.5 for patients wiht mechanical heart valves.Renin, [id number] 22:50:00 Test Item Value Reference Range Interpretation Comments PRA,LC/MS/MS 1.51 ng/mL/h 0.25-5.82 This test was developed (test code = and its analyti steven 2264330) performance characteristics havebeen determined by [facility].It h as not been cleared or approved by FDA. This as say has been validatedp ursuant to the CLIA reg ulations and is used for clinical purposes. VALENTE (test Performing Lab code = VALENTE) EZ [employer] [facility] [address] [place] [address] Mark Encarnacion MD, PhD, AMINA [facility] HospitalBody fluid cell count with [id number] 18:33:00 Test Item Value Reference Range Interpretation Comments Appearance (test code = 9335-1) Hazy Clear A Color (test code = 6824-7) Cele Colorless, Straw A RBCs (test code = 58121-7) 4000 <=1 /cu mm H Adjusted WBC Count (test code = 86 <=5 /cu mm H 73579-9) Lining Cells (test code = 1 <=1 /cu mm 41377-1) % Segs (test code = 77195-5) 7 % % Lymphs (test code = 09797-0) 83 % % Monos (test code = 36393-7) 10 % % Eos (test code = 81073-2) 0 % % Baso (test code = 55303-5) 0 % Container Body Fluid (test code Sterile Vial = 2873) Lab Interpretation (test code = Abnormal 33404-0) [facility] HospitalBODY FLUID CELL COUNT WITH [id number] 18:33:00 Test Item Value Reference Range Interpretation [...] = 2873) Peripheral Blood Smear - Hold [id number] 15:19:00 Test Item Value Reference Range Interpretation Comments Peripheral Smear Save (test code = saved 1815) [facility] HospitalPERIPHERAL BLOOD SMEAR - HOLD [id number] 15:19:00 Test Item Value Reference Range Interpretation Comments PERIPHERAL SMEAR SAVE (BEAKER) (test saved code = 1815) [id number] 14:41:00 Test Item Value Reference Interpretation Comments Range Aldosterone (test 22 ng/dL Adult Ref erence code = 1160300) Ranges for Aldosterone: Upright 8:00-10 :00 am < or = 28 ng/ dL Upright 4:00-6: 00 pm < or = 21 ng/ dL Supine 8:00-10 :00 am 3-16 ng/dL Th is test was developed a nd its analytical perf ormance characteristics havebeen determ ined by [facility] [employer] [facility] .It has not been cleare d or approved by FDA . This assay has been validatedpursua nt to the CLIA regula tions and is used for clinical purpos es. VALENTE (test code = Performing Lab VALENTE) EZ [employer] [facility] [address] [place] [address] Mark Encarnacion MD, PhD, AMINA [facility] HospitalT Spot [id number] 13:05:00 Test Item Value Reference Range Interpretation Comments T-Spot TB (test code = 41206-1) Negative Neg Ctrl Spot Count (test code = 0 66896-9) Panel A Spot (test code = 15373-6) 0 Panel B Spot (test code = 64093-0) [address] (test code = 0 58906-8) Scan Result (test code = 4196141) [facility] HospitalT SPOT [id number] 13:05:00 Test Item Value Reference Range Interpretation Comments T-SPOT TB (BEAKER) (test code = Negative 1683) NEG CONTROL SPOT COUNT (BEAKER) 0 (test code = 1684) PANEL A SPOT (BEAKER) (test code = 0 1685) PANEL B SPOT (BEAKER) (test code = 0 1686) POS CONTROL SPOT CT (BEAKER) (test 0 code = 1687) SCAN RESULT (test code = 8848678) BLOOD [id number] 13:00:00 Test Item Value Reference Range Interpretation Comments CULTURE (BEAKER) (test No growth in 5 days code = 1095) BLOOD [id number] 12:00:00 Test Item Value Reference Range Interpretation Comments CULTURE (BEAKER) (test No growth in 5 days code = 1095) [id number] 10:25:00 Test Item Value Reference Range Interpretation Comments CORTISOL, TOTAL (BEAKER) (test code 5.1 ug/dL 3.7-19.4 = 2755) Quality Control Coordinator ID - TUAN CCOMPREHENSIVE METABOLIC [id number] 10:23:00 Test Item Value Reference Range Interpretation [...] S NOT APPLICABLE FOR DIALYSIS PATIEN TS. Quality Control Coordinator ID - TUAN CSpecimen moderately ictericVaricella zoster antibody, IgG 2020-01-21 10:15:00 Test Item Value Reference Range Interpretation Comments Varicella IgG (test 3.6 code = 53183-1) VALENTE (test code = VALENTE) VARICELLA ZOSTER RESULT INTERPRETATIONS: <=0.8 Al Nonreactive: Presumed non-immune to VZV 0.9-1.0 Al Equivocal >=1.1 Al Reactive: Presumed immune to VZV [facility] HospitalRubella antibody, [id number] 10:15:00 Test Item Value Reference Range Interpretation Comments Rubella IgG Quant (test 127.0 <8.0 IU/mL H code = 8014-3) VALENTE (test code = VALENTE) Rubella IgG Result Interpretation: </= 7.0 IU/mL Negative - Presumed non-immune 8.0 - 9.9 IU/mL Equivocal >= 10.0 IU/mL Positive - Presumed immune Lab Interpretation (test Abnormal code = 14443-1) [facility]TIBODY, [id number] 10:15:00 Test Item Value Reference Range Interpretation Comments RUBELLA IGG QUANTITATION (BEAKER) 127.0 IU/mL <8.0 H (test code = 572) Rubella IgG Result Interpretation: </= 7.0 IU/mL Negative - Presumed non- immune 8.0 - 9.9 IU/mL Equivocal >= 10.0 IU/mL Positive - Presumed immune VARICELLA ZOSTER ANTIBODY, [id number] 10:15:00 Test Item Value Reference Range Interpretation Comments VARICELLA ZOSTER IGG (AL) (BEAKER) 3.6 (test code = 3197) VARICELLA ZOSTER RESULT INTERPRETATIONS: <=0.8 Al Nonreactive: Presumed non-immune to VZV 0.9-1.0 Al Equivocal >=1.1 Al Reactive: Presumed immune to VZVReticulocyte [id number] 10:12:00 Test Item Value Reference Range Interpretation Comments % Retic (test code = 5.3 % 0.5-1.7 H 46052-4) VALENTE (test code = VALENTE) Quality Control Coordinator ID - [id number] Lab Interpretation (test Abnormal code = 88034-8) [facility] HospitalRETICULOCYTE [id number] 10:12:00 Test Item Value Reference Range Interpretation Comments RETICULOCYTE COUNT PCT (BEAKER) (test 5.3 % 0.5-1.7 H code = 575) Quality Control Coordinator ID - [id number] 10:06:00 Test Item Value Reference Range Interpretation Comments PHOSPHORUS (BEAKER) (test code = 3.1 mg/dL 2.3-4.7 604) Quality Control Coordinator ID - TUAN [id number] 10:06:00 Test Item Value Reference Range Interpretation Comments MAGNESIUM (BEAKER) (test code = 1.7 mg/dL 1.6-2.6 627) Quality Control Coordinator ID - TUAN CHEPATIC FUNCTION [id number] 10:06:00 Test Item Value Reference Range Interpretation [...] (test code = 12 U/L 6-55 347) Quality Control Coordinator ID - TUAN CSpecimen moderately ictericRAD, [...] interval worsening of interstitial edema Signed: Karen Walkereport Verified Date/Time: 01/21/2020 10:03:32 Reading Location: [facility] Radiology Reading Room XR chest 1 view portable / [id number] 10:03:00 Interface, External Ris In - 01/21/2020 [...] Slight interval worseningof interstitial edema Signed: Karen Walkerepcristóbal Verified Date/Time: 01/21/2020 10:03:32 Reading Location: [facility] Radiology Reading Room [facility] W/PLT COUNT & AUTO [id number] 09:59:00 Test Item Value Reference Range Interpretation [...] PERCENT (BEAKER) (test code = 2801) PROTHROMBIN TIME/[id number] 09:53:00 Test Item Value Reference Range Interpretation [...] ABDOMEN, WITHOUT CONTRAST 2020-01-21 07:51:00Referring: Dr. Reno SweattFINAL REPORT TECHNIQUE: MRI of the abdomen WITHOUT [...] MDReport Verified Date/Time: 01/21/2020 07:51:30 Reading Location: [facility] Diagnostic Imaging Reading Room - [place] [address] MR abdomen without IV contrast 2020-01-21 07:51:00Interface, [...] Crocker Verified Date/Time: 01/21/2020 07:51:30 Reading Location: [facility] Diagnostic Imaging Reading Room - [place] [address] [facility] Type and screen, [id number] 22:06:00 Test Item Value Reference Range Interpretation Comments ABO/RH AUTOMATED (BEAKER) (test A POSITIVE code = 2260) Ab Scrn (test code = 890-4) [facility]GATIVE [facility] 1 [facility], NON [id number] 21:16:00 Referring: Dr. Rowdy Zhang for exam:->JVD [...] MDReport Verified Date/Time: 01/20/2020 21:16:28 Reading Location: [facility] Transitional Reading Room Cryptococcal [id number] 11:36:00 Test Item Value Reference Range Interpretation Comments Cryptococcal Antigen, Serum Negative Negative, Interference (test code = 12991-1) Lab Interpretation (test code Normal = 26218-2) [facility] HospitalCRYPTOCOCCAL [id number] 11:36:00 Test Item Value Reference Range Interpretation Comments CRYPTOCOCCAL ANTIGEN, SERUM Negative Negative, Interference (BEAKER) (test code = 1828) CBC W/PLT COUNT & AUTO [id number] 09:56:00 Test Item Value Reference Range Interpretation [...] CONCENTRATION Decreased (CELLAVISION)(BEAKER) (test code = 3438) Quality Control Coordinator ID - [id number] ID - Lizett OverholtUser comments: Slide comments: COMPREHENSIVE METABOLIC [id number] 05:46:00 Test Item Value Reference Range Interpretation [...] S NOT APPLICABLE FOR DIALYSIS PATIEN TS. Quality Control Coordinator ID - MITCH LSpecimen moderately zothofqLSNAKLRKQK0881-98-20 05:37:00 Test Item Value Reference Range Interpretation Comments PHOSPHORUS (BEAKER) (test code = 2.8 mg/dL 2.3-4.7 604) Quality Control Coordinator ID - MITCH [id number] 05:37:00 Test Item Value Reference Range Interpretation Comments MAGNESIUM (BEAKER) (test code = 1.9 mg/dL 1.6-2.6 627) Quality Control Coordinator ID - MITCH LHEPATIC FUNCTION [id number] 05:37:00 Test Item Value Reference Range Interpretation [...] (test code = 9 U/L 6-55 347) Quality Control Coordinator ID - MITCH LSpecimen moderately ictericPROTHROMBIN TIME/[id number] 04:53:00 Test Item Value Reference Range Interpretation [...] is2.5-3.5 for patients wiht mechanical heart valves.CALCIUM, [id number] 04:45:00 Test Item Value Reference Range Interpretation Comments CALCIUM IONIZED (BEAKER) (test 1.14 mmol/L 1.12-1.27 code = 698) PH, BLOOD (BEAKER) (test code = 7.36 1810) Sodium, random [id number] 00:37:00 Test Item Value Reference Range Interpretation Comments Sodium Urine (test <20 meq/L code = 2955-3) VALENTE (test code = Reference Range: No VALENTE) NormalsOperator ID - PIAYA L [facility] HospitalODI[facility], RANDOM [id number] 00:37:00 Test Item Value Reference Range Interpretation Comments SODIUM URINE (BEAKER) (test code = < meq/L 243) Reference Range: No NormalsOperator ID - PIAYA LUrinalysis w/Microscopic 2020-01-20 00:30:00 Test Item Value Reference Range Interpretation Comments Color, UA (test code = Yellow 5778-6) Clarity, UA (test code = Hazy 5767-9) Specific Hazel Green, UA (test 1.017 1.001-1.035 code = 5811-5) pH, UA (test code = 5.5 5.0-8.0 5803-2) Protein, UA (test code = 20 mg/dL Negative A 05952-7) Glucose, UA (test code = Negative Negative 365) Ketones, UA (test code = Negative Negative 2514-8) Bilirubin, UA (test code = Negative Negative 87436-6) Blood, UA (test code = Small Negative A 10170-9) Nitrite, UA (test code = Negative Negative 5802-4) Leukocytes, UA (test code Trace Negative A = 5799-2) Urobilinogen, UA (test 0.2 mg/dL 0.2-1 code = 76983-1) RBC, UA (test code = 1 /HPF 19849-5) WBC, UA (test code = 3 /HPF 5821-4) Bacteria, UA (test code = Rare 97615-6) Squam Epithel, UA (test 3 /HPF code = 44984-8) Hyaline Casts, UA (test 3 /LPF code = 78963-3) Specimen Source (test code = 2795) VALENTE (test code = VALENTE) Quality Control Coordinator ID - [auto]Quality Control Coordinator ID - tech Lab Interpretation (test Abnormal code = 44452-3) [facility] HospitalUrinalysis w/Microscopic + Reflex to Culture 2020-01-20 00:30:00 Test Item Value Reference Range Interpretation Comments Color, UA (test code = 5778-6) Yellow Clarity, UA (test code = 5767-9) Hazy Specific Hazel Green, UA (test code = 1.017 1.001-1.035 5811-5) pH, UA (test code = 5803-2) 5.5 5.0-8.0 Protein, UA (test code = 74336-3) 20 mg/dL Negative A Glucose, UA (test code = 365) Negative Negative Ketones, UA (test code = 2514-8) Negative Negative Bilirubin, UA (test code = 66088-0) Negative Negative Blood, UA (test code = 32819-2) Small Negative A Nitrite, UA (test code = 5802-4) Negative Negative Leukocytes, UA (test code = 5799-2) Trace Negative A Urobilinogen, UA (test code = 0.2 mg/dL 0.2-1 28482-7) RBC, UA (test code = 77300-7) 1 /HPF WBC, UA (test code = 5821-4) 3 /HPF Bacteria, UA (test code = 66509-1) Rare Squam Epithel, UA (test code = 3 /HPF 93399-6) Hyaline Casts, UA (test code = 3 /LPF 77157-7) Specimen Source (test code = 2795) Lab Interpretation (test code = Abnormal 86625-8) [facility]URIN[facility] W/ REFLEX URINE [id number] 00:30:00 Test Item Value Reference Range Interpretation [...] SOURCE(BEAKER) (test code = 2795) URINALYSIS W/ [id number] 00:30:00 Test Item Value Reference Range Interpretation [...] /LPF 514) SOURCE(BEAKER) (test code = 2795) Quality Control Coordinator ID - [auto]Quality Control Coordinator ID - techActin (Smooth Muscle) Antibody, [...] of patients withautoimmune hepatitis (AIH) type 1, zytllwcmoaonx50 % of patients with autoimmune cholangitis,lis sherine mately 30% of patients with primary biliarycirrhosi s, and approximate ly 2% of healthy people.High beatriz ues are closely correlated with AIH type 1. VALENTE (test code = Performing Lab VALENTE) EZ [facility] [employer] [facility] [address] [place] [address] Mark Encarnacion MD, PhD, AMINA Lab Interpretation Abnormal (test code = 18682-3) [facility] HospitalZinc2020-06-24 20:06:00 Test Item Value Reference Interpretation Comments Range Zinc (test code = 39 60- 130 mcg/dL L This te st was ) developed and i ts analytical performance characteristics have been determined by [email or web address] . It has not been cleared or appr jean-claude by theA. This assay has been validated pursu ant to the CLIA regulations and is used for clinic al purposes. VALENTE (test code = Performing Lab VALENTE) *BEATRIZ [employer] [facility], [address] [place] [id number] Jorje aJuregui MD, PhD Lab Interpretation Abnormal (test code = 76586-6) [facility] HospitalTissue [id number] 16:12:00 Test Item Value Reference Range Interpretation Comments Case Report (test code Surgical Pathology = 104) Report Case: [id number] Authorizing Provider: Sylvie George MD Collected: 01/17/2020 08:15 AM Ordering Location: [address] Received: 01/17/2020 01:50 PM Service Pathologist: Humaira Mendez MD Specimen: Duodenum, biopsy ADDENDUM (test code = w7vyuWGeWJWnsZWlLyTiAL 3381) PeQEMds0piOIInsRZqOuGk MzNcZnRuYmpcdWMxXGRlZm Jpw1lkh895zNLov1hyHNNf NaJ7gNOiOQWzkTKqG859WA HuDHcuf5owk5AuSIEqsURi j4O5DMHQjnrzxUz8fGpiZ1 3yw1Q3EznyN1ntMFWjHDPn C0KbOK5sSHYaOzy9NEM5PZ M3ABDmVZFoG6ZvVL8xKHKu rVFsSZp5y9bxbCnsZTZwHC J6f7daFDtdxlRtQK7dzv3c pKf0q4zixrHqIGKzGZHylK KRIRBpY8ZviJkrKg6mpGa4 iQchZydfJRT8Gun6IU8oma 15skt0wHnrGHYyimtwGsZ7 ELxfQXAxzyczTDb8EVsjBY RhePL4JHNzuFGhM5XdAIKi FY0nypp8QTL3RYhmVOAfMo D7RSDtqAFsRKYjdXrxZGez a813MHA6IxEcZI3cY4Tjb1 C8eX8zyHHpUYDeuWGnHbLp AYKcqv5nbWHtPUljx6HtPA H1owW4jOAeoKFwSUPrVT16 Fckpb4OjSdkfBUZ9CHCmwe Miw8Eqp8qsPlWhvfJoS3gn O5CrROAiVMHgQSCaBsGhjs Edo3Ipo6NwtNRigYx4r9kb JEQlMIYngGmlk8cbWAG9JH DlI0L5yYOnz9wcDRpqAXIu gMS9gjH7LWBxbSLsH1CurW 5hOIPcHJ5ilhy8z1wzAWL3 SLqqMUAiVeV3jqG9DBZtpP UtHMZjpTyhTQbhv593GDI5 KyDiZZJrl5KcS0BvuFahM3 9jqNfzO64vNINlnJflfI3w mUpiyB9tQmGbSeZiKPprEB JkXHBsYWluXGYxXGZzMjBc bGFuZzEwMzNcaGljaFxmMV bdCvEkYNEoVOciN6boYiRg OkSqZMRYZBySFOMNJT7GBS 8KVDaATFkRP7RXMSOOYiSK RVBPUlQgVEhFIEZJTkRJTk dTIElOIFRIRSBERUVQRVIg JFMSHIeNIQ1RULBLQOZMLD 1VY3jdUZ4UHJcDItXqGOxI GLEUOoMPYPQPHPtGM6YPIg pccGFyXHFsXHBsYWluXGYw CECnVoNwnQkhoT6nNeVlNi UyHSprSS4fXILrF2cqxFHb SPCoBIJqH3xmMtZpcP5qiR xmMVxmczIwXHBhciAgRFVP DPMQJU4vIVRGXR0JS34UBZ MgQklPUFNZOlxwYXIgICAt GGPYESHBOLZcFvCZA5EMHa NFUpDSEFOaMQTPBY8MIKWW N5VVLOHdNZLYP5mPI9ZGQe YwP4OgVS0LFBIMJHEHQ8XB Tc2BPNXSTYqnSZGrVJHqNM 5CRIRQEMYQXdGVMJ2LKBGJ TElBQyBESVNFQVNFIFNFRU 5ccGFyICAgLSBOTyBHUkFO VUxPTUFTLCBEWVNQTEFTSU KsP6EyCJPUTPdUEA7LSDRA RUVOXHBhcn0= DIAGNOSIS (test code = x7kyyGEgJEVir5yhMPNurO 3220) FuZzEwMzNcZnRuYmpcdWMx EAarqsAeNSipv4ZtD2MgTb AwMFxhbnNpXGRlZmxhbmcx VUCpNGH7qjKdKROuMRhqFI UiAOtfYb5yuJLdlPsgJgQa ORPox6duwfJUfzncnPg1h4 eoWVOgEgE3hGLfUAksO6sp nxCtmWWpCBEjSCb2oN24ZR FnjB5doPOsYLmalcCgArZ7 YHdeCUSgGoR8PIYwkARzQE EvG0zkPQWkWYbkRNJrRUiv xTXaUKE9qVslt5Z7uNWvyX ZsdGevWjUhIiVgWYAFa5Hl JDb7yIavW2QmGNYdQeK1fK QgUGFyYWdyYXBoIEZvbnQ7 zP41DUsrsbX6nUOil7Hfe1 7qy092aT8myNBqEZX3NPMx SFMlzNBzDMPzSHD6TRIilA ItT0q0VcMcbXYqL5Z1FlBu tLNaH3E3UjErbZDzR8G1Tt QduUFjXNFzsRJsVb6eyEHb bVAowa2dvc60OMJ8x5TygM ylXZT1NVU6MjZbMd1juIRl HYIbJG3aXhQbaBKqHTVygb 96jYmcYPccksTxmH1uClVw DFDqcVPaZKYbEA6uuYXuUP TjoQ3jcasdBXAgRjOikwes AMGyrPqptgQrLu2poUjqZA V5LWscY9zesI2tVzJ9BRbr G4fpcE0rRVk2FKobqPX2PU ZzrQ7qBY2ztsxdv9dfMuVc GX7evyndt2rzGkCjYN1mbw p0n1cvStOtAE7eazvgh2wl NzIwXGhlYWRlcnkwXGZvb3 ThwbmaNJPwc5XdV3OssVpj B46siLvrL55mUGIayWvpyF 0ryNdtpJ0uSrGpKpTjQXdt bFxwbGFpblxmMVxmczIwXG dkcbgdTHVsMNbvT9ovFlTz KGSxcKsdGImwn0XiDADrPQ VfVhKmNOWVRBBARV6uOPYD TG6OI29GRDKuNxvPSZHBNp hhKSXiRWQmH6USPTUTKQEE FKtzRwVJP29VPjTDJP4IZA GIGTvMCANQG6YBIA0IL67K YCQOBFPPSPrOM3YMQNWyId 4GLY9VFZWhSNYARAKRPEAR VArqZFOgmRTcBUAkka94NS P9WdHni6T6RSR8FMYrZRIf l5msXFSddZEvDdMzMcQlRb PlFifekOAgLLYzWwSjq4xo d606qKAym7ehDBFuLyP6aR LfNUItuJFqF344SLTqSFxv k3vtn3RgRYPdhXEmm0A5ML ZCtlbrxAm9oHheP93fl9E1 JfqlY6voZUJiFFCmB9AgTU 3aEGJzXkb0UPE3SMU5BDMm JEEyX4HzYQ1hSDNmgVCoIA s5t1npnMhvSEJsSSL4o0rl OZckcwGcTE1njz5idTi4m9 xjczEgRGVmYXVsdCBQYXJh J3WdjVnhYg7btNi0jMjtDr ssOVV0Yaf0NU1knf50kii7 xIxoOZEmldwtApH4OKaiMB TcoyjaNRi4PBqrBQXssTQ5 DEDpxGIuT1UpPKKbSL4bvi k6SYO6AYdqMBClTcV3CRPa oPApXMQvpSbcSKwvj706WN G4FsFhXV1xG9Ksw7O0lF7k aXRcZGVmdGFiNzIwXGZvcm 5ycTJrINdcx3ZhFGZ2qfC9 eSSodDAcDYGjHhB7WGiuXV 2xue92PQHsTMO9ju3iuJTq yAnwfxXefCMzUUvqN4TlZE Mnc399KCIqN9TgJCUet7O1 veMaUnNkSJJlxBW2umU8DD PzJU8igsjek3pxMKtiEJvg NXVorfK9ayU2CWChzDPkX4 OvfW4oRDDhSM2ecishj3el HGN4EAroRBSaGRD6StYqPD Hnk2Pcwrb1QqUbb7DhxAQx USddV87tb114DELaiyQlX9 xwbGFpblxwbGFpblxmMFxm yxG5TMYbEWpezmduHOLzPR tlE9ewRnRcVYIjuIzbXBiz l1HoJYFqOWLyZwIldDUtUB AxWwv2AKGprXLkKYEdNsLp B7xunnfaMqIDXYPcu3vrR4 gkyWREsAPfM6YeAPsdooHk DZroQWpzKGT7WYD9Aj47Iz T1GZNili16 CPT Code(s) (test code t3gchIPgAZDwgULkEtFfIL = 3357) NjPFCug6uvVVNlnZRmWdPs MzNcZnRuYmpcdWMxXGRlZm Igg9mmp311sSOgx0hbGNKw BmT5qXShNCFgwTKdD520t5 wjr5gxdpAmbFM7YTRmUNT6 NIlbzhDrypN4CAhycHAtDv D1HCclxwOtBEkbyySmdiCf Suo4VOXwN194USQ6lDjka7 bnJTY9NJJtYNHoWrZpVv1a sNVzL835QSLpKDLVZXTflB a3JVJwqpQuqcJusJEMc935 E956a9vyFMBktaMnlQuUwx aan2msS426SQLblGZosuTe NpMrUCQdaJQtfSI8MCRmKN 1gkbsjMqUeBB6bxmpnHcUf OS9icwh4PmNkKG0rvazjIq IrAUzyGMWmoypcVNFhx9Gi gqvyWH3gK3Zfj7G6lE3beF EzFIRtaJXbObIkADKnxu7g iSQuOIhht1FuYXZ4ovC5zK MvlMEvWFGjXY64Olvfj7Et DgwvSHA9VLSpvtOrv0Rwz6 jcGdFjusGyF2hwT2LaDJEw POAlHAFdMvOtooNta9Vin5 DamDEdwVs7v8nzYRPeWCOb mLqcs1fhDFI2YRQmE5Z3yT Bzi3beEAeyFYDwdAT5qoat GRgiKIWzhhI0qkhnRNkpGX JvtPB3tqpeYNooPHKxBxU6 soamKJrkRSUiWLX5HDvqn2 56ZLE7ONbuAwrrGHtcSROo bmNvbnRccGduZGVjXHBsYW luXHBsYWluXGYwXGZzMjRc bRvqhSeqvT0dQwDkLgHfEI eyLH5hWDCiS4pzoJBuZPZc WGKpL6vaLeOsiX6ldUpxEL luncMrJEc3CzL5MRZhfv2= CLINICAL HISTORY (test g8rsvFZmPIJdjJRkFzXqOV code = 3356) NcUUMvc4rkVFBcdQXeKqVm MzNcZnRuYmpcdWMxXGRlZm Iou0zkw861eBKvf1fvVUTy LmD6nEBhIMUcmUKqW096GP GxKJzyu6rby1UnYDHryCXk y9A4QZABadjvnSx1uLhzU7 8cq5S9OfftH1xgEBCtRFkj KNQuFJyxzHSjNEU9UNSfNC E7GPozydEybhI0MNddhAZj YjO5DZm9y3oryPwpZEMuUC E8l2ngJIqwhsLwPB1jqu5m qMh0o7yoryZmKQEnNNMyeT RGYPRhE7OsmTdeBt3hqYm9 iFkfMacuQFG1Uwx6UZ0xka 60ryy9iDjqNXTffddeSzY5 UPqgMXGjqfecSKz1HOuhIQ JnbDcyMFxtYXJncjcyMFxt YXJndDcyMFxtYXJnYjcyMF blGVTqWJU1YGwrv025HSB8 MSzih8ebf2ieyAKfUrk2GX VrUiFgDgsfRQbyb2Iar4dy RUDcis7sIMC8aERblIdvp3 V0yIGoTYVzdFGilgOpWREl CwY8WQalLU3mjt84OHFpAS O2jp6hxHTxuJnqxoZhzMCu JAboR9StNMLxa227OYCnX3 WvZNZkk0K1qjXvUlHtXEZq qSP6rmW8NIIlFBg3cOMeyv Q2eqXdrBNoU5pqoY39FxQv xDKaW7NxsS37QwNqyUUpM2 LtfV63HxMkuDPcS8FecG61 FkLvzCHvMDCemWAaJe9ftP GamGXzd4KscEAySKtiD27c c344HUYhjlLjA1favJXixn xwbGFpblxmMFxmczIwXHFs XHBsYWluXGYwXGZzMjBccG tctO9pOcIhJdShRNBXdy2r WAW2kxB1IZMgjESiVMVgHI 9eQ01laCmaBccbiZI9YBBw YHHxl5udxs2iR83dwLSjmY CdQZQaEOXusrOzdY5skS0q JREfJZrkd0UlcrxbBV7bzM lhXHBhcn0= SPECIMEN SOURCE (test a8iguNZbZYOkaAOsIpAsIF code = 3377) FtRJUya8pmYKVszNSmIfSv MzNcZnRuYmpcdWMxXGRlZm Ife2kyg446iOQwf5fxREYi IjX5sKMbKOIztIZqF081f4 pig1gazrPrnTI7RTCqKAK4 OCufuoMvpwD5EOaloSGwNj I6YLecfsHnJQzomwCksaWz Cls9URNnZ233YWD6dIkja3 anUIP8BYUzZVDiJdElPo7k yANoN230FSPzTVPDZCQubC q7TLDkqdUmfiTnvZKYt778 P463n5quODTqbnKssQbCih xza1kgC041LJQtkHKhfpJo DwBdLZAbxQOotBS8ENDxEF 1eamlsZiQaAH1kmfmfXpHf OA4tzxc7XjIsSZ7huepdZo GwJMfyBGMgphhqNFBtc6Zp igbkZQ7pU5Jju2Y5pN9ibM HjSBRdyTRuSaNxKJOsgf2p sIJhLQsfl3OtFFM8ifX2iI TsnVIyLXTgKY85Eyjru1Qh LrjyHBC9TDEmaqPmx7Ufy1 oeFwIjduNeO2ttL4MzMKZp KAQtHGXrMcMhctRbh2Xrf4 QxkCUmmQi1x4amVHQvWZAu lJmjr3qyNXX8MSIwC1K0wH Klg1jrWSkaLZHshYY2dzbw NBwnMOQbvlZ1schjFUhlKG IsbIL2ydwuRHfkAOLjSoI9 wkhwMXfyUWVjXYP4LCnqb9 66IUC9DEkdEjdyCEtqZIZz bmNvbnRccGduZGVjXHBsYW luXHBsYWluXGYwXGZzMjRc lTqolUqbhX6hHzLuMvArSW eoSA1vGYMgF2griKKuCWGw SUNfB0ooZwTauK6vkYitAS aifqNbSUKoUWY2b6XwyuSb LyQbsH2tl2dkgMSgkM== GROSS DESCRIPTION (test n1asjAHkUUKboGZuXxHbVS code = 3366) UmZLCti4naZKYkaUMcUvKc MzNcZnRuYmpcdWMxXGRlZm Soo9boi223fYXnh2kxNGDc KeU0nXWjAXFhsSMaP117XX MiSBsae3mvp4CqNVKpgPHb g6G5VEMCvfjxoYi7aFexM1 8uo6Q3QsmfS9wbMEWrMSka CRSaCAdtcQYoHXX8CKYvMU E5CKzynrPhlqJ8VUhqoOBq OxS7CUt1s6sogGbtLOUxCO N6b0mmZCjyfbDkKZ2aqx4z yUw3v8wmxmOuQNMzYXJwkN RGPVFhK9BzwUguIq9jgAa7 mTkxZvyeWLI5Skj2UA2uxl 24qwe7nJamKCSzjfjaYoB1 OBqxMEVrqzqjPEv3PZbuZC JnbDcyMFxtYXJncjcyMFxt YXJndDcyMFxtYXJnYjcyMF tqCUVnBZK6RMtiw324FPH5 RFglw7xro8rhoCTpXxr2SJ AmLuAcVbdcRLorz7Ipl8sl ZPYjps6uYLC5zETixIisu6 I0rNTmDYLhoEJzqvQdUYMt ZdU0RIziZN0xgm68YUAqZT S0ha4cmTHiyQeiluRzbPBh XMozI8WxUGKnu910ATHzN5 WpCYIvh5D7evKzTiAxGWQp tHS9eyC8TVQfUDj2bDShbs J3zpWnhTXaO3nawU99NrMm aMCfC2ZwsS10UbTntASfZ3 VunM31RfIwxYPtL6LddN32 CzNalRZaODGvxLSlYg0twS TtoKXor1PtbWHzUGjrN10k y405EUXwvpQpP4oasCMlhn xwbGFpblxmMFxmczIwXHFs XHBsYWluXGYwXGZzMjBccG botL0hJwTePkNfZIWKOaXG uLEba1WtI1beVC9ybSOlqx HcFQy8MINpaW7yPx4mbKHi qU8aIMRlKEmlPZQoRBLjOw LneODcICohHBE7qPPjQXHw TTQqZPHvEU83O6UznhXiCH myAYNxCQZtdO2fJD74nCUl ciBhbmQgIlxwbGFpblxmMF upufOjMDU2j7TwutBlEhZx woNbG59xd3uxeQHja9Hrg0 0rMRDoae3neF7fNTsdtZQj oterPOwzaqCiAB62W13pID tpT305CEBwAKdqmQAibhjv MFxmczIwICBwaWVjZXMgb2 UubHixe4GkMX3tPAQ7wwwy ZyAwLjMgeCAwLjIgeCAwLj VgA45pRUvkbAIaescqZDcl mxGeCDTbFJVhfBAukX5lcr TqvsWssHPbnXM9GRWoSN95 qCJyoNpgVu3kaZ10fC6pAC UvtBKfKIKqq52guS5nHWHj OEUhJMJ0TTZfgNeysJ8cIl HxDlChRWFUXC5vOOmTG3Jr XHBhcn0= MICROSCOPIC DESCRIPTION y3qobKRcWBMorDKoCtKdQT (test code = 3371) PrLFSzq9whTNQezNRaZiPv MzNcZnRuYmpcdWMxXGRlZm Fmb3sea063fTMit7kcOAIz MtI3rTXhAKQhkCAoP163i7 ehp8ycyuDtfCO1EEDlATI9 KIuyeaRtuvN6UUfztQLfGe G2CNahkzGeSOumqfCoeeLq Dzd7FEOvH434AHP0gMpvr2 pgTNO8NJXmFXHoJyGzQx4m yVYgZ985LZZiXTSNQKQtxY g4YAXpwtNvwhQxpAKXt856 E045q2ajDYMgdvKrhPxJvb rcv9gtI787EPCqyIIxyfQw OnAlUORzxIVylUC4AKNqWP 1orqwjQcCrSD1cedpsHtIq NW2moqf9IzSaAJ2cmgciTz FkCLmtMRNjzypdIOSos0Zw hyfpWY0pA2Ziu1W9gF6jxX FcWMUulZNeJvRfUKCzei3f fTNiLKusz4YnVKA4teF0xD SslTBjQJRbWF07Rthhg4Vu OxayOMG2GYZzpkEir1Vdk8 xuVkWnruElR2prX2QmBNHw FKMnQOQiTvTypoBro5Iuc6 DbgKFpaKb0i0hiIHTmOTNc fOxuv5bdLPT7KRRqO5I3xR Vke7klXPiwMXBbfJY6rsqf QYomDJFzhyT3tkymVXisII FdkRW5sxzeDGbxJIOyKiV4 wmvoUPogMEBpOZO4GMgdk3 32QLZ3ONhkKxjmAKdaOXNl bmNvbnRccGduZGVjXHBsYW luXHBsYWluXGYwXGZzMjRc nSsayDxigX2kRjRuPmIyEH piXJ3qLRYyI3dkfOHpIRFf KDHpL3uzYlCspR2laRhiKS dvaoRzTLNKEyKLYt7YVGxi YXJ9 [facility] [id number] 16:12:00Surgical Pathology Report Case: [id number] Authorizing Provider: Sylvie George MD Collected: 01/17/2020 08:15 AM Ordering Location: [address] Received: 01/17/2020 01:50 PM Service Pathologist: [...] FOVEOLAR METAPLASIA Signing Pathologist Direct Phone Line: [phone] signed by Humaira Mendez MD on 01/18/2020 at 3:50 [id number]: upper endoscopy, biopsy and colonoscopy Pre and postop diagnosis: anemiaA. Duodenum; biopsyA. The specimen is received in formalin labeled with the patient's name, accession number and "duodenum" and consists of one garduno-pink mucosal-covered pieces of tissue measuring 0.3 x 0.2 x 0.1cm. The specimen is submitted entirely following filtration in a cassette A1. HS/plPERFORMEDBlood gas, [id number] 16:03:00 Test Item Value Reference Range Interpretation Comments pH, Arterial (test code = 2744-1) 7.42 7.35-7.45 pCO2, Arterial (test code = 36 35- 45 mmHg 8) pO2, Arterial (test code = 78 80- 90 mmHg L 2703-7) O2 Sat, Arterial (test code = 96.2 % 96-97 2708-6) HCO3, Arterial (test code = 23 mmol/L 21-29 1959-4) Base Excess, Arterial (test code -1.9 mmol/L -2-3 = 1925-7) Patient Temperature (test code = 36.1 C 8310-5) FIO2 (test code = 1819) 28 % Lab Interpretation (test code = Abnormal 39590-1) [facility], [id number] 16:03:00 Test Item Value Reference Range Interpretation [...] (BEAKER) (test code = 1819) 28.0 % [id number] 15:05:00 Test Item Value Reference Range Interpretation Comments Ceruloplasmin (test code 21 mg/dL 18-53 = 3900022) VALENTE (test code = VALENTE) Performing Lab *[facility] [place] [facility], [address] [place] [address] Jorje Jauregui MD, PhD [facility] HospitalCarbohydrate antigen 19-9 (CA 19-9)2020-01-19 12:51:00 Test Item Value Reference Range Interpretation Comments CA 19-9 32 U/mL <34 This test was (test code = performed using the 81941-8) Siemens Chemiluminescen t method.Values o btained from different assay methods cannot be used interchangeably .CA19-9 levels, regardl ess of value, should n ot be interpreted as absoluteevidenc e of the presence or abs ence of disease. VALENTE (test Performing Lab code = VALENTE) [facility] [place] [address] [place] [address] Mark Encarnacion MD, PhD, AMINA [facility] HospitalPROTHROMBIN TIME/[id number] 11:28:00 Test Item Value Reference Range Interpretation [...] patients wiht mechanical heart valves.MM, U/S, BREAST, [id number] 09:52:00Referring: Dr. Rowdy Zhang for exam:->liver transplant [...] Brooks MDReport Verified Date/Time: 01/19/2020 09:52:28 Reading Location:[address] Mammo Reading Room US breast [id number] 09:52:00Interface, External Ris In - 01/19/2020 9:54 [...] MDReport Verified Date/Time: 01/19/2020 09:52:28 Reading Location: [address] Mammo Reading Room [facility] UCLACT, ABDOMEN, WITHOUT [id number] 08:09:00Referring: Dr. Rowdy LopestAnesthesia:->NonePlease specify abdominal organs:->AdrenalFINAL [...] MDReport Verified Date/Time: 01/19/2020 08:09:04 Reading Location: [facility] Diagnostic Imaging Reading Room - [place] [address] [address] abdomen without IV contrast 2020-01-19 08:09:00Interface, [...] MDReport Verified Date/Time: 01/19/2020 08:09:04 Reading Location: [facility] Diagnostic Imaging Reading Room - [place] [address] Electronically signed by: JOHN CROCKER MD on 0 01/19/2020 08:09 [facility] UCLACALCIUM, [id number] 07:59:00 Test Item Value Reference Range Interpretation [...] by Shaq GARCIA MICHAEL([id number]) on 01/19/2020 7:03:55 [facility] UCLACOMPREHENSIVE METABOLIC PANEL 2020-01-19 05:21:00 Test Item Value [...] S NOT APPLICABLE FOR DIALYSIS PATIEN TS. Quality Control Coordinator ID - LASpecimen moderately [id number] 05:04:00 Test Item Value Reference Range Interpretation Comments PHOSPHORUS (BEAKER) (test code = 3.3 mg/dL 2.3-4.7 604) Quality Control Coordinator ID - [id number] 05:04:00 Test Item Value Reference Range Interpretation Comments MAGNESIUM (BEAKER) (test code = 2.0 mg/dL 1.6-2.6 627) Quality Control Coordinator ID - LAHEPATIC FUNCTION [id number] 05:04:00 Test Item Value Reference Range Interpretation [...] (test code = 10 U/L 6-55 347) Quality Control Coordinator ID - LASpecimen moderately ictericB-TYPE NATRIURETIC FACTOR (BNP) 2020-01-19 04:59:00 Test Item Value Reference Range Interpretation Comments B-TYPE NATRIURETIC PEPTIDE 2455 pg/mL 0-100 H (BEAKER) (test code = 700) Quality Control Coordinator ID - [place] BCBC W/PLT COUNT & AUTO [id number] 04:46:00 Test Item Value Reference Range Interpretation [...] (BEAKER) (test code = 2801) U/S, RENAL, [id number] 01:26:00Referring: Dr. Rowdy Zhang for exam:->Re-examine L [...] Sneed MDReport Verified Date/Time: 01/19/202001:26:59 US renal [id number] 01:26:00Interface, External Ris In - 01/19/2020 1:29 [...] of prior CT and MRI. Signed: [facility] Verified Date/Time: 01/19/2020 01:26:59 [facility] UCLAEosinophil [id number] 22:11:00 Test Item Value Reference Range Interpretation Comments Eosinophil Smear (test Rare EOS =less than No EOS seen A code = 63679-8) 5% WBCs seen are EOS Lab Interpretation (test Abnormal code = 35729-6) [facility] HospitalEOSINOPHIL SMEAR, [id number] 22:11:00 Test Item Value Reference Range Interpretation Comments EOSINOPHIL SMEAR, URINE Rare EOS =less than No EOS seen A (BEAKER) (test code = 5% WBCs seen are EOS 1851) SODIUM, RANDOM [id number] 22:04:00 Test Item Value Reference Range Interpretation Comments SODIUM URINE (BEAKER) (test code = < meq/L 243) Reference Range: No NormalsOperator ID - EDWIN BCreatinine, random urine 2020-01-18 22:02:00 Test Item Value Reference Range Interpretation Comments Creatinine, Ur 181.3 mg/dL (test code = 2161-8) VALENTE (test code = Reference Range: No VALENTE) NormalsOperator ID - EDWIN B [facility] HospitalProtein, random [id number] 22:02:00 Test Item Value Reference Range Interpretation Comments Protein, Urine (test code 45 mg/dL 0-14 H = 2888-6) VALENTE (test code = VALENTE) Quality Control Coordinator ID - EDWIN B Lab Interpretation (test Abnormal code = 10139-5) [facility] HospitalCREATININE, RANDOM [id number] 22:02:00 Test Item Value Reference Range Interpretation Comments CREATININE URINE (BEAKER) (test 181.3 mg/dL code = 375) Reference Range: No NormalsOperator ID - EDWIN BPROTEIN, RANDOM [id number] 22:02:00 Test Item Value Reference Range Interpretation Comments PROTEIN, URINE (BEAKER) (test code = 45 mg/dL 0-14 H 1569) Quality Control Coordinator ID - EDWIN BURINALYSIS W/ [id number] 22:02:00 Test Item Value Reference Range Interpretation [...] (test Urine, Sterile code = 2795) Collection Quality Control Coordinator ID - [auto]Quality Control Coordinator ID - techHepatitis B core antibody, [id number] 16:02:00 Test Item Value Reference Range Interpretation Comments Hep B Core Total Ab Nonreactive Nonreactive (test code = 33291-7) VALENTE (test code = VALENTE) Quality Control Coordinator ID Mercedes CASILLAS F Lab Interpretation (test Normal code = 68410-8) [facility] HospitalHEPATITIS B CORE ANTIBODY, [id number] 16:02:00 Test Item Value Reference Range Interpretation Comments HEPATITIS B CORE TOTAL ANTIBODY Nonreactive Nonreactive (BEAKER) (test code = 497) Quality Control Coordinator ID Mercedes CASILLAS FECG 12 [id number] 14:19:40Interface, External Ris In - 01/18/2020 2:19 PM CDTVentricular Rate 62 BPMAtrial Rate 62 BPMP-R Interval 138 msQRS Duration 86 msQ-T Interval 452 msQTC Calculation(Bazett) 458 msP Holden 59 degreesR Holden 32 degreesT Holden 56 degreesNormal sinus rhythmLow voltage QRSNonspecific ST xetzgknflza66 DEC 2019 11:05Nonspecific T wave abnormality Nonspecific T wave abnormality, improved inQT has shortenedConfirmed by MD FARHAT, JESSIE ([id number]) on 01/18/2020 2:19:38 [facility] Cytomegalovirus antibody, [id number] 13:49:00 Test Item Value Reference Range Interpretation Comments CYTOMEGALOVIRUS, IGG Positive Negative, A (test code = 3429) Equivocal VALENTE (test code = VALENTE) CMV IgG Result Interpretation: </= 0.8 Al Negative 0.9-1.0 Al Equivocal >/=1.1 Al Positive Lab Interpretation (test Abnormal code = 52011-1) [facility] HospitalEBV-VCA antibody, [id number] 13:49:00 Test Item Value Reference Range Interpretation Comments GABRIEL CHING VIRAL Positive Negative, A CAPSID ANTIGEN IGG (test Equivocal code = 3415) VALENTE (test code = VALENTE) Gabriel Ching Viral Capsid Antigen IgG Result Interpretation: </= 0.8 Al Negative 0.9-1.0 Al Equivocal >/= 1.1 Al Positive Lab Interpretation (test Abnormal code = 64920-1) [facility] HospitalEBV-VCA antibody, [id number] 13:49:00 Test Item Value Reference Range Interpretation Comments GABRIEL CHING VIRAL Negative Negative, CAPSID ANTIGEN IGM (test Equivocal code = 3418) VALENTE (test code = VALENTE) Gabriel Ching Viral Capsid Antigen IgM Result Interpretation: </= 0.8 Al Negative 0.9-1.0 Al Equivocal >/= 1.1 Al Positive Lab Interpretation (test Normal code = 58164-5) [facility] HospitalCytomegalovirus antibody, [id number] 13:49:00 Test Item Value Reference Range Interpretation Comments CMV IGM (test code = Negative Negative, 3437) Equivocal VALENTE (test code = VALENTE) CMV IgM Result Interpretation: </= 0.8 Al Negative 0.9-1.0 Al Equivocal >/= 1.1 Al Positive Lab Interpretation (test Normal code = 80071-6) [facility] HospitalCYTOMEGALOVIRUS ANTIBODY, [id number] 13:49:00 Test Item Value Reference Range Interpretation Comments CYTOMEGALOVIRUS, IGG (BEAKER) Positive Negative, Equivocal A (test code = 3429) CMV IgG Result Interpretation: </= 0.8 Al Negative 0.9-1.0 Al Equivocal >/=1.1 Al PositiveCYTOMEGALOVIRUS ANTIBODY, [id number] 13:49:00 Test Item Value Reference Range Interpretation Comments CYTOMEGALOVIRUS IGM ANTIBODY Negative Negative, Equivocal (BEAKER) (test code = 3437) CMV IgM Result Interpretation: </= 0.8 Al Negative 0.9-1.0 Al Equivocal >/= 1.1 Al PositiveEBV ANTIBODY, [id number] 13:49:00 Test Item Value Reference Range Interpretation [...] Negative 0.9-1.0 Al Equivocal >/= 1.1 Al [id number] 13:35:00 Test Item Value Reference Range Interpretation Comments T3, Total (test code = 3053-6) 51 ng/dL 48-159 Lab Interpretation (test code = Normal 80773-0) [facility] HospitalT32020-06-23 13:35:00 Test Item Value Reference Range Interpretation Comments T3 TOTAL (KIRK) (test code = 656) 51 ng/dL 48-159 PET/CT, CARDIAC PERF REST AND [id number] 12:45:00Referring: Dr. Rowdy Zhang for exam:->pre op cardiac clearance for liver transplantFINAL REPORT PROCEDURE: MYOCARDIAL PERFUSION PET IMAGING (Rest/Stress)CPT CODE: 93142 INDICATION: Evaluation for liver transplant CARDIOVASCULAR PROFILE:Symptoms: [...] Melo Verified Date/Time: 01/18/2020 12:45:40 Reading Location: [place] [id number] Reading Room NM Myocardial Perfusion Pet/CT (Rest & Stress)2020-01-18 12:45:00Interface, External Ris In - 01/18/2020 12:47 PM CDTFINAL REPORT PROCEDURE: MYOCARDIAL PERFUSION PET IMAGING (Rest/Stress)CPT CODE: 11707 INDICATION: Evaluation for liver transplant CARDIOVASCULAR PROFILE:Symptoms: [...] MDReport Verified Date/Time: 01/18/2020 12:45:40 Reading Location: [address] Med Reading Room [facility] HEPATIC FUNCTION [id number] 10:29:00 Test Item Value Reference Range Interpretation [...] (test code = 9 U/L 6-55 347) Quality Control Coordinator ID - CHARO FSpecimen moderately ictericCBC W/PLT COUNT & AUTO [id number] 08:43:00 Test Item Value Reference Range Interpretation [...] CONCENTRATION Decreased (CELLAVISION)(BEAKER) (test code = 3438) Quality Control Coordinator ID - [id number] ID - Lizett OverholtUser comments: Slide comments: [id number] 07:29:00 Test Item Value Reference Range Interpretation Comments MAGNESIUM (BEAKER) (test code = 2.1 mg/dL 1.6-2.6 627) Quality Control Coordinator ID - CHARO FBASIC METABOLIC [id number] 07:29:00 Test Item Value Reference Range Interpretation [...] S NOT APPLICABLE FOR DIALYSIS PATIEN TS. Quality Control Coordinator ID - CHARO FSpecimen moderately ictericAnti-Nuclear Antibody (REILLY) 2020-01-17 10:54:00 Test Item Value Reference Range Interpretation Comments REILLY (test code = 31016-0) Negative Negative VALENTE (test code = VALENTE) Test performed by IFA method.Test performed by IFA method. Lab Interpretation (test Normal code = 74295-2) [facility] HospitalANTI-NUCLEAR ANTIBODY (REILLY)2020-01-17 10:54:00 Test Item Value Reference Range Interpretation Comments ANTI-NUCLEAR ANTIBODY (REILLY) (BEAKER) Negative Negative (test code = 418) Test performed by IFA method.Test performed by IFA method.[id number] 10:49:00 Test Item Value Reference Range Interpretation Comments RPR (test code = 68848-5) Nonreactive Nonreactive Lab Interpretation (test code = Normal 30725-6) [facility] HospitalRPR2020-06-22 10:49:00 Test Item Value Reference Range Interpretation Comments RPR SCREEN (BEAKER) (test code = Nonreactive Nonreactive 420) CBC W/PLT COUNT & AUTO [id number] 10:00:00 Test Item Value Reference Range Interpretation [...] CONCENTRATION Decreased (CELLAVISION)(BEAKER) (test code = 3438) Quality Control Coordinator ID - JohnOperator ID - Alem Mars comments: Slide comments:BASIC METABOLIC [id number] 05:16:00 Test Item Value Reference Range Interpretation [...] S NOT APPLICABLE FOR DIALYSIS PATIEN TS. Quality Control Coordinator ID - MITCH LSpecimen moderately fhogqcuZHJJJMHVV5925-65-36 05:15:00 Test Item Value Reference Range Interpretation Comments MAGNESIUM (BEAKER) (test code = 2.1 mg/dL 1.6-2.6 627) Quality Control Coordinator ID - MITCH LPROTHROMBIN TIME/[id number] 04:50:00 Test Item Value Reference Range Interpretation [...] patients wiht mechanical heart valves.Vitamin B12 and Iqxege9461-12-64 16:46:00 Test Item Value Reference Range Interpretation Comments Vitamin B12 (test code = 1107 pg/mL 213-816 H 2132-9) Folate (test code = 2284-8) 3.40 ng/mL >=7.00 L VALENTE (test code = VALENTE) Quality Control Coordinator ID - NTP Lab Interpretation (test Abnormal code = 05438-3) [facility] HospitalVITAMIN B12 AND [id number] 16:46:00 Test Item Value Reference Range Interpretation Comments VITAMIN B12 (BEAKER) (test code = 1107 pg/mL 213-816 H 774) FOLATE (BEAKER) (test code = 362) 3.40 ng/mL >=7.00 L Quality Control Coordinator ID - NTPLactate dehydrogenase (LDH)2020-01-16 12:57:00 Test Item Value Reference Range Interpretation Comments LDH (test code = 2532-0) 250 U/L 125-220 H VALENTE (test code = VALENTE) Quality Control Coordinator ID - TUAN C Lab Interpretation (test Abnormal code = 16934-7) [facility] HospitalLACTATE DEHYDROGENASE (LDH)2020-01-16 12:57:00 Test Item Value Reference Range Interpretation Comments LACTATE DEHYDROGENASE (BEAKER) (test 250 U/L 125-220 H code = 635) Quality Control Coordinator ID - TUAN CRETICULOCYTE [id number] 12:44:00 Test Item Value Reference Range Interpretation Comments RETICULOCYTE COUNT PCT (BEAKER) (test 5.0 % 0.5-1.7 H code = 575) Quality Control Coordinator ID - 6000HIV-1 Antigen with HIV-1/2 Zobbvczh1595-08-90 12:17:00 Test Item Value Reference Range Interpretation Comments HIV-1 Antigen with HIV Nonreactive Nonreactive 1&2 Antibody (test code = 78768-9) VALENTE (test code = VALENTE) Quality Control Coordinator ID - TUAN C Lab Interpretation (test Normal code = 48081-0) [facility] HospitalHIV-1 ANTIGEN WITH HIV-1/2 [id number] 12:17:00 Test Item Value Reference Range Interpretation Comments HIV-1 ANTIGEN WITH HIV 1\\T\\2 Nonreactive Nonreactive ANTIBODY (2) (BEAKER) (test code = 2586) Quality Control Coordinator ID - TUAN APugnphciqih1158-23-80 12:02:00 Test Item Value Reference Range Interpretation Comments Haptoglobin (test code = <8 14-258 L 4542-7) VALENTE (test code = VALENTE) Quality Control Coordinator ID - TUAN C Lab Interpretation (test Abnormal code = 23729-9) [facility] HospitalHAPTOGLOBIN2020-06-21 12:02:00 Test Item Value Reference Range Interpretation Comments HAPTOGLOBIN (BEAKER) (test code = < mg/dL 14-258 L 366) Quality Control Coordinator ID - TUAN CHemoglobin [id number] 09:01:00 Test Item Value Reference Range Interpretation Comments Hemoglobin A1C (test code = 4548-4) <3.8 4.3-6.1 L Lab Interpretation (test code = Abnormal 24651-2) [facility] HospitalHEMOGLOBIN [id number] 09:01:00 Test Item Value Reference Range Interpretation Comments HEMOGLOBIN A1C (BEAKER) (test code = < % 4.3-6.1 L 368) U/S, ABDOMINAL, WITH [id number] 07:32:00Referring: Dr. Rowdy Mccarthy Reason for exam:->liver [...] Verified Date/Time: 01/16/2020 07:32:01 Reading Location: [address] Transitional Reading Room US abdominal with rcrwual4560-13-74 07:32:00Interface, External Ris In - 01/16/2020 7:34 [...] Verified Date/Time: 01/16/2020 07:32:01 Reading Location: [address] Transitional Reading [facility] METABOLIC [id number] 04:41:00 Test Item Value Reference Range Interpretation [...] S NOT APPLICABLE FOR DIALYSIS PATIEN TS. Quality Control Coordinator ID - MITCH Goetzimen moderately jvcmsgqCINFUFNAU0828-94-90 04:38:00 Test Item Value Reference Range Interpretation Comments MAGNESIUM (BEAKER) (test code = 2.3 mg/dL 1.6-2.6 627) Quality Control Coordinator ID - MITCH LHEPATIC FUNCTION [id number] 04:38:00 Test Item Value Reference Range Interpretation [...] (test code = 9 U/L 6-55 347) Quality Control Coordinator ID - MITCH Rodriguezn moderately ictericPROTHROMBIN TIME/[id number] 04:36:00 Test Item Value Reference Range Interpretation [...] mechanical heart valves.CBC W/PLT COUNT & AUTO SBMPNHHRWZHJ0453-64-56 04:29:00 Test Item Value Reference Range Interpretation [...] (BEAKER) (test code = 2801) Carotid doppler rwkclibno8528-24-95 00:34:03Ejection FractionSLE ECHO HEARTLAB MKCKESSON CPACSRight Impression1. The internal, [...] CDTPV LAB - [facility] Patient Name CICI CALDERON Date of Study 01/15/2020 ALYSE Age 64 Visit Number [id number] Gender Female Accession Number [id number] Date of 1955 Referring [facility] Room Number 1515 Physician Software Engineer Web Applications Herbert Lechuga Interpreting Chelsea Resendez T Physician [...] + + - Additional Measurements:ICAPSV/CCAPSV 0.96.ICAEDV/CCAEDV 1.52.[facility] HospitalBlood typing, automated - - at seperate draw time from initial type and fplmis9057-03-66 20:34:00 Test Item Value Reference Range Interpretation Comments ABO/RH AUTOMATED (BEAKER) (test A POSITIVE code = 1113) [facility] HospitalT42020-06-20 18:08:00 Test Item Value Reference Range Interpretation Comments T4, Total (test code = 4.3 ug/dL 4.9-11.7 L 3026-2) VALENTE (test code = VALENTE) Quality Control Coordinator ID - NTP Lab Interpretation (test Abnormal code = 08262-2) [facility] HospitalT42020-06-20 18:08:00 Test Item Value Reference Range Interpretation Comments T4 TOTAL (BEAKER) (test code = 895) 4.3 ug/dL 4.9-11.7 L Quality Control Coordinator ID - RBYBdzqifjk6788-60-01 18:07:00 Test Item Value Reference Range Interpretation Comments Ferritin (test code = 489.86 ng/mL 5-275 H 2276-4) VALENTE (test code = VALENTE) Quality Control Coordinator ID - NTP Lab Interpretation (test Abnormal code = 91836-8) [facility] HospitalFERRITIN2020-06-20 18:07:00 Test Item Value Reference Range Interpretation Comments FERRITIN (BEAKER) (test code = 489.86 ng/mL 5.00-275.00 H 361) Quality Control Coordinator ID - NTPCT, CHEST, WITHOUT [id number] 17:57:00Referring: Dr. Reno SweattFINAL REPORT CT of [...] MDReport Verified Date/Time: 01/15/2020 17:57:54 Reading Location: [facility] C013X Ortho Consult Reading Room CT chest without IV dvanulqz9683-31-02 17:57:00Interface, External Ris In - 01/15/2020 6:00 [...] MDReport Verified Date/Time: 01/15/2020 17:57:54 Reading Location: [facility] C013X Ortho Consult Reading Room [facility] 2020-01-15 17:27:00 Test Item Value Reference Range Interpretation Comments TSH (test code = 73433-1) 5.549 0.350- 4.940 uIU/mL H VALENTE (test code = VALENTE) Quality Control Coordinator ID - DB Lab Interpretation (test Abnormal code = 42748-5) [facility] HospitalVitamin D, 75-Suuyctq8380-50-20 17:27:00 Test Item Value Reference Range Interpretation Comments Vitamin D 25-Hydroxy 6.2 ng/mL 6.6-49.9 L (test code = 2764) VALENTE (test code = VALENTE) Effective 05/07/2017: Reference Range ChangeNew: 6.6-49.9 ng/mL Previous: 13.0-47.8 ng/mL Recommended Vitamin D Target Range: 30.0-40.0 ng/mLOperator ID - DB Lab Interpretation (test Abnormal code = 99171-8) [facility] HospitalVITAMIN D, 74-[id number] 17:27:00 Test Item Value Reference Range Interpretation Comments VITAMIN D 25-OH (BEAKER) (test code 6.2 ng/mL 6.6-49.9 L = 2764) Effective 05/07/2017: Reference Range ChangeNew: 6.6-49.9 ng/mL Previous: 13.0-47.8 ng/mLRecommended Vitamin D Target Range: 30.0-40.0 ng/mLOperator ID - [id number] 17:27:00 Test Item Value Reference Range Interpretation Comments THYROID STIMULATING HORMONE 5.549 uIU/mL 0.350-4.940 H (BEAKER) (test code = 772) Quality Control Coordinator ID - DBALPHA FETOPROTEIN (AFP), TUMOR [id number] 17:27:00 Test Item Value Reference Range Interpretation Comments ALPHA-FETOPROTEIN (BEAKER) (test code < ng/mL <10.0 = 1094) Quality Control Coordinator ID - DBHepatitis B surface bkaxxvn1880-95-09 17:25:00 Test Item Value Reference Range Interpretation Comments HBsAg Screen (test code Nonreactive Nonreactive = 5195-3) VALENTE (test code = VALENTE) Specimen is considered negative for HBsAg. Lab Interpretation (test Normal code = 39649-0) [facility] HospitalHepatitis B surface baslwglg9680-36-64 17:25:00 Test Item Value Reference Range Interpretation Comments Hep B S Ab (test code = 25.0 <8.0 mIU/mL H 08030-7) VALENTE (test code = VALENTE) Quality Control Coordinator ID - DB Lab Interpretation (test Abnormal code = 37149-4) [facility] HospitalHepatitis C aomohxes9285-23-46 17:25:00 Test Item Value Reference Range Interpretation Comments Hepatitis C Ab (test code = Nonreactive Nonreactive 35504-9) VALENTE (test code = VALENTE) Quality Control Coordinator ID - DB Lab Interpretation (test Normal code = 17152-6) [facility] HospitalHEPATITIS B SURFACE [id number] 17:25:00 Test Item Value Reference Range Interpretation Comments HEPATITIS B SURFACE ANTIGEN (2) Nonreactive Nonreactive (BEAKER) (test code = 2585) Specimen is considered negative for HBsAg.HEPATITIS B SURFACE [id number] 17:25:00 Test Item Value Reference Range Interpretation Comments HEPATITIS B SURFACE ANTIBODY 25.0 mIU/mL <8.0 H (BEAKER) (test code = 647) Quality Control Coordinator ID - DBHEPATITIS C BRIYFVNP8186-26-45 17:25:00 Test Item Value Reference Range Interpretation Comments HEPATITIS C ANTIBODY (BEAKER) Nonreactive Nonreactive (test code = 367) Quality Control Coordinator ID - DBCarcinoembryonic Antigen (CEA)2020-01-15 17:23:00 Test Item Value Reference Range Interpretation Comments CEA, SERUM (test code = 7.9 ng/mL 0-5 H 2038-6) VALENTE (test code = VALENTE) Quality Control Coordinator ID - DB Lab Interpretation (test Abnormal code = 02726-0) [facility] B core antibody, [id number] 17:23:00 Test Item Value Reference Range Interpretation Comments Hep B C IgM (test code = Nonreactive Nonreactive 04148-2) VALENTE (test code = VALENTE) Quality Control Coordinator ID - DB Lab Interpretation (test Normal code = 32952-9) [facility] HospitalHepatitis A antibody, [id number] 17:23:00 Test Item Value Reference Range Interpretation Comments Hep A IgM (test code = Nonreactive Nonreactive 90847-4) VALENTE (test code = VALENTE) Quality Control Coordinator ID - DB Lab Interpretation (test Normal code = 88906-4) [facility] HospitalCARCINOEMBRYONIC ANTIGEN (CEA)2020-01-15 17:23:00 Test Item Value Reference Range Interpretation Comments CARCINOEMBRYONIC ANTIGEN (BEAKER) 7.9 ng/mL 0.0-5.0 H (test code = 685) Quality Control Coordinator ID - DBHEPATITIS B CORE ANTIBODY, [id number] 17:23:00 Test Item Value Reference Range Interpretation Comments HEPATITIS B CORE IGM ANTIBODY Nonreactive Nonreactive (BEAKER) (test code = 645) Quality Control Coordinator ID - DBHEPATITIS A ANTIBODY, [id number] 17:23:00 Test Item Value Reference Range Interpretation Comments HEPATITIS A IGM ANTIBODY (BEAKER) Nonreactive Nonreactive (test code = 498) Quality Control Coordinator ID - DBRAD, MANDIBLE, MIN 4 [id number] 17:22:00Referring: Dr. Rowdy Zhang for exam:->liver transplant [...] Verified Date/Time: 01/15/2020 17:22:12 Reading Location: [address] Transitional Reading Room XR mandible min 4 tbzwq7892-91-79 17:22:00Interface, External Ris In - 01/15/2020 5:24 [...] Alvarado Verified Date/Time: 01/15/2020 17:22:12 Reading Location: [facility] Trans[facility], 2 [id number] 17:16:00Referring: Dr. Rowdy Zhang for exam:->liver transplant [...] Verified Date/Time: 01/15/2020 17:16:49 Reading Location: [address] Transitional Reading Room XR chest 2 [id number] 17:16:00Interface, External Ris In - 01/15/2020 5:19 [...] Verified Date/Time: 01/15/2020 17:16:49 Reading Location: [address] Transitional Reading Room [facility] 2D Echo W/Doppler(CW/PW/Color)2020-01-15 17:15:41Ejection FractionSLE ECHO HEARTLAB MKCKESSON CPACSInterface, External Ris In - 01/15/2020 5:15 PM C DTTransthoracic Echocardiography Report (TTE) Demographics Patient Name CICI CALDERON Date of Study 01/15/2020 ALYSE Gender Female Visit Number [id number] Race Unknown Room Number 1515 Number Date of 1955 Referring Physician Ren Hernandez MD Age 64 year(s) Software Engineer Web Applications Lisa Bautista [facility] Interpreting Jai Arreguin MD Physician Procedure [...] 7.05 l/min LVOT CI: 3.67 l/min/m^2[facility] HospitalCOMPREHENSIVE METABOLIC [id number] 17:06:00 Test Item Value Reference Range Interpretation [...] S NOT APPLICABLE FOR DIALYSIS PATIEN TS. Quality Control Coordinator ID - NTPSpecimen moderately poqdzwzDdbrdwqjck1553-18-09 17:03:00 Test Item Value Reference Range Interpretation Comments Fibrinogen (test code = 3255-7) 114 mg/dl 225-434 L Lab Interpretation (test code = Abnormal 47047-6) [facility] HospitalFIBRINOGEN2020-06-20 17:03:00 Test Item Value Reference Range Interpretation Comments FIBRINOGEN LEVEL (BEAKER) (test 114 mg/dl 225-434 L code = 658) Uxholblvwgm0833-25-60 17:00:00 Test Item Value Reference Range Interpretation Comments Transferrin (test code = 102 mg/dL 174-382 L 3034-6) VALENTE (test code = VALENTE) Quality Control Coordinator ID - DBSpecimen moderately icteric Lab Interpretation (test Abnormal code = 46692-2) [facility] HospitalIron, TIBC, % sat. (without ferritin)2020-01-15 17:00:00 Test Item Value Reference Range Interpretation Comments Iron (test code = 2498-4) 144.0 ug/dL 40-160 TIBC (test code = 2500-7) 129 ug/dL 250-450 L Iron % Saturation (test code 112 % 20-55 H = 2502-3) VALENTE (test code = VALENTE) Quality Control Coordinator ID - DB Lab Interpretation (test Abnormal code = 22313-8) [facility] HospitalTRANSFERRIN2020-06-20 17:00:00 Test Item Value Reference Range Interpretation Comments TRANSFERRIN (BEAKER) (test code = 102 mg/dL 174-382 L 541) Quality Control Coordinator ID - DBSpecimen moderately ictericIRON, TIBC, % SAT. (WITHOUT FERRITIN) 2020-01-15 17:00:00 Test Item Value Reference Range Interpretation Comments IRON (BEAKER) (test code = 547) 144.0 ug/dL 40.0-160.0 TOTAL IRON BINDING CAPACITY 129 ug/dL 250-450 L (BEAKER) (test code = 769) IRON % SATURATION (2) (BEAKER) 112 % 20-55 H (test code = 2590) Quality Control Coordinator ID - SWFjaeh-3-pillgdaqfeh3704-06-20 16:59:00 Test Item Value Reference Range Interpretation Comments A-1 Antitrypsin (test code = 121.20 mg/dL 90-200 1825-9) VALENTE (test code = VALENTE) Quality Control Coordinator ID - DB Lab Interpretation (test Normal code = 66852-9) [facility] HospitalBILIRUBIN, [id number] 16:59:00 Test Item Value Reference Range Interpretation Comments BILIRUBIN DIRECT 1.6 mg/dL 0.1-0.5 H Specimen sl ightly (BEAKER) (test code = hemoly zed 706) Quality Control Coordinator ID - LGBTNCFX-7-PCMMSIGVFGS0440-06-20 16:59:00 Test Item Value Reference Range Interpretation Comments ALPHA-1 ANTITRYPSIN (BEAKER) 121.20 mg/dL 90.00-200.00 (test code = 502) Quality Control Coordinator ID - GMGwbyewb0300-47-35 16:58:00 Test Item Value Reference Range Interpretation Comments Ethanol Lvl (test code = <10 <=10 mg/dL 5643-2) VALENTE (test code = VALENTE) Quality Control Coordinator ID - DB Lab Interpretation (test Normal code = 41565-6) [facility] HospitalaPTT2020-06-20 16:58:00 Test Item Value Reference Range Interpretation Comments PTT (test code = 82247-8) 36.8 22.5- 36.0 seconds H Lab Interpretation (test code = Abnormal 99906-6) [facility]00 Test Item Value Reference Range Interpretation Comments PARTIAL THROMBOPLASTIN TIME 36.8 seconds 22.5-36.0 H (BEAKER) (test code = 760) [id number] 16:58:00 Test Item Value Reference Range Interpretation Comments ETHANOL (BEAKER) (test code = 400) < mg/dL <=10 Quality Control Coordinator ID - DBPROTHROMBIN [id number] 16:57:00 Test Item Value Reference Range Interpretation [...] is2.5-3.5 for patients wiht mechanical heart valves.CALCIUM, [id number] 16:45:00 Test Item Value Reference Range Interpretation Comments CALCIUM IONIZED (BEAKER) (test 1.08 mmol/L 1.12-1.27 L code = 698) PH, BLOOD (BEAKER) (test code = 7.38 1810) CREATININE, RANDOM [id number] 13:46:00 Test Item Value Reference Range Interpretation Comments CREATININE URINE (BEAKER) (test 280.7 mg/dL code = 375) Reference Range: No NormalsOperator ID - NTPSODIUM, RANDOM [id number] 13:46:00 Test Item Value Reference Range Interpretation Comments SODIUM URINE (BEAKER) (test code = < meq/L 243) Reference Range: No NormalsOperator ID - NTPHepatitis panel, [id number] 13:05:00 Test Item Value Reference Range Interpretation Comments Hep A IgM (test code = Nonreactive Nonreactive 55739-1) Hep B C IgM (test code = Nonreactive Nonreactive 83755-7) Hepatitis C Ab (test code = Nonreactive Nonreactive 10981-9) HBsAg Screen (test code = Nonreactive Nonreactive 5195-3) VALENTE (test code = VALENTE) Quality Control Coordinator ID - NTP Lab Interpretation (test Normal code = 95101-8) [facility], [id number] 13:05:00 Test Item Value Reference Range Interpretation Comments HEPATITIS A IGM ANTIBODY (BEAKER) Nonreactive Nonreactive (test code = 498) HEPATITIS B CORE IGM ANTIBODY Nonreactive Nonreactive (BEAKER) (test code = 645) HEPATITIS C ANTIBODY (BEAKER) Nonreactive Nonreactive (test code = 367) HEPATITIS B SURFACE ANTIGEN (2) Nonreactive Nonreactive (BEAKER) (test code = 2585) Quality Control Coordinator ID - NTPLipid [id number] 11:51:00 Test Item Value Reference Range Interpretation Comments Triglycerides (test 86 mg/dL code = 2571-8) Cholesterol (test code 101 mg/dL = 2093-3) HDL (test code = 12 mg/dL 2085-9) LDL Calculated (test 72 mg/dL code = 67121-1) VALENTE (test code = VALENTE) Triglyceride Reference Range: Low Risk <150 Borderline 150-199 High Risk 200-499 Very High Risk >=500 Cholesterol Reference Range: Low Risk <200 Borderline 200-239 High Risk >240 HDL Cholesterol Reference Range: Low Risk >=60 High Risk <40 LDL Cholesterol Reference Range: Optimal <100 Near Optimal 100-129 Borderline 130-159 High 160-189 Very High >=190 Quality Control Coordinator ID - NTPSpecimen moderately icteric [facility] Glutamyl Transferase (GGT)2020-01-15 11:51:00 Test Item Value Reference Range Interpretation Comments GGT (test code = 2324-2) 15 U/L 9-64 VALENTE (test code = VALENTE) Quality Control Coordinator ID - NTPSpecimen moderately icteric Lab Interpretation (test Normal code = 78019-7) [facility] HospitalUric [id number] 11:51:00 Test Item Value Reference Range Interpretation Comments Uric Acid (test code = 15.7 mg/dL 2.6-7.2 H 3084-1) VALENTE (test code = VALENTE) Quality Control Coordinator ID - NTPSpecimen moderately icteric Lab Interpretation (test Abnormal code = 56645-2) [facility] HospitalURIC [id number] 11:51:00 Test Item Value Reference Range Interpretation Comments URIC ACID (BEAKER) (test code = 15.7 mg/dL 2.6-7.2 H 773) Quality Control Coordinator ID - NTPSpecimen moderately ictericLIPID [id number] 11:51:00 Test Item Value Reference Range Interpretation [...] Borderline 130-159 High 160-189 Very High >=190 Quality Control Coordinator ID - NTPSpecimen moderately [id number] 11:51:00 Test Item Value Reference Range Interpretation Comments PHOSPHORUS (BEAKER) (test code = 4.5 mg/dL 2.3-4.7 604) Quality Control Coordinator ID - NTPGAMMA GLUTAMYL TRANSFERASE (GGT)2020-01-15 11:51:00 Test Item Value Reference Range Interpretation Comments GAMMA GLUTAMYL TRANSFERASE (BEAKER) 15 U/L 9-64 (test code = 364) Quality Control Coordinator ID - NTPSpecimen moderately ictericCBC W/PLT COUNT & AUTO [id number] 11:25:00 Test Item Value Reference Range Interpretation [...] CONCENTRATION Decreased (CELLAVISION)(BEAKER) (test code = 3438) Quality Control Coordinator ID - [id number] ID - Ana Laura HeMeghanwest comments: Slide comments: [id number] 10:20:00 Test Item Value Reference Range Interpretation Comments MAGNESIUM (BEAKER) (test code = 2.2 mg/dL 1.6-2.6 627) Quality Control Coordinator ID - [id number] 08:57:00 Test Item Value Reference Range Interpretation Comments Ammonia (test code = 19 18- 72 mol/L 43720-6) VALENTE (test code = VALENTE) Quality Control Coordinator ID - NTP Lab Interpretation (test Normal code = 82487-8) [facility]AMMONIA2020-[facility] 08:57:00 Test Item Value Reference Range Interpretation Comments AMMONIA (BEAKER) (test code = 348) 19 mol/L 18-72 Quality Control Coordinator ID - NTPHEPATIC FUNCTION [id number] 05:21:00 Test Item Value Reference Range Interpretation [...] (test code = 12 U/L 6-55 347) Quality Control Coordinator ID - DALTON MSpecimen moderately ictericBASIC METABOLIC [id number] 05:15:00 Test Item Value Reference Range Interpretation [...] S NOT APPLICABLE FOR DIALYSIS PATIEN TS. Quality Control Coordinator ID - DALTON MSpecimen moderately ictericPROTHROMBIN [id number] 04:37:00 Test Item Value Reference Range Interpretation [...] Detected Not Detected, (test code = Negative 09679-2) SARS-COV-2 [facility] PERFORMING LAB (test code = 60335-8) VALENTE (test code = Negative results do [...] of the Act. Fact Sheet for Healthcare Providers:https://www.[employer]/Documents/Xper t%20Xpress%20SARS%20CoV- 2/Fact%20Sheets/302-3802 %35AUMD-EDE-2%20HEALTHCA RE%20PROVIDERS%20FACT%20 SHEET.pdf Fact Sheet for Healthcare Patients:https://www.[employer]/Documents/Xpert %20Xpress%20SARS%20CoV-2 /Fact%20Sheets/3023801% 77ZDUH-ZDJ-3%20PATIENT%2 0FACT%20SHEET.pdf Performing Laboratory:[facility], [place] [address] [place], [place] [address]ARS-COV2/RT-PCR ([facility])2020-01-15 01:48:00 Test Item Value Reference Range Interpretation Comments SARS-COV2/RT-PCR (test Not Detected Not Detected, Negative code = 7363646) SARS-COV-[address] [facility] (test code = 3751751) Negative results do not preclude SARS-CoV-2 infection [...] of the Act.Fact Sheet for Healthcare Pro viders:https://www.[employer]/Documents/Xpert%20Xpress%20SARS%20CoV-2/Fact%20Sh eets/302-3802%19IONX-LZN-8%20HEALTHCARE%20PROVIDERS%20FACT%20SHEET.pdfFact Sheet for Healthcare Patients:https://www.[employer]/Documents/Xpert%20Xpress%20SARS%20CoV-2/Fact%20Sheets/3023801%20SARS-COV -2%20PATIENT%20FACT%20SHEET.pdfPerforming Laboratory:[place] [address], [place] [address]OFXPH METABOLIC [id number] 22:40:00 Test Item Value Reference Range Interpretation [...] S NOT APPLICABLE FOR DIALYSIS PATIEN TS. Quality Control Coordinator ID - DBSpecimen moderately ictericHEPATIC FUNCTION [id number] 22:39:00 Test Item Value Reference Range Interpretation [...] Specimen slightly (test code = 347) hemolyzed Quality Control Coordinator ID - DBSpecimen moderately ictericPROTHROMBIN [id number] 22:28:00 Test Item Value Reference Range Interpretation [...] mechanical heart valves.CBC W/PLT COUNT & AUTO [id number] 22:22:00 Test Item Value Reference Range Interpretation [...] code = 2801) ALPHA FETOPROTEIN (AFP), TUMOR [id number] 18:31:00 Test Item Value Reference Range Interpretation Comments ALPHA-FETOPROTEIN (BEAKER) (test code < ng/mL <10.0 = 1094) Quality Control Coordinator ID - DBBASIC METABOLIC [id number] 15:23:00 Test Item Value Reference Range Interpretation [...] S NOT APPLICABLE FOR DIALYSIS PATIEN TS. Quality Control Coordinator ID - BSPlease sent STATSpecimen moderately ictericHEPATIC FUNCTION [id number] 15:18:00 Test Item Value Reference Range Interpretation [...] (test code = 17 U/L 6-55 347) Quality Control Coordinator ID - BSPlease sent STATSpecimen moderately [...] valves.Please sent STATCBC W/PLT COUNT & AUTO [id number] 15:05:00 Test Item Value Reference Range Interpretation [...] (BEAKER) (test code = 2801) CT, ABDOMEN, [id number] 15:58:00Referring: Dr. Reno SweattFINAL REPORT CT OF [...] MDReport Verified Date/Time: 05/02/2017 15:58:35 Reading Location: [place] [id number] CT Body Reading Room CBC W/PLT COUNT & AUTO [id number] 17:30:00 Test Item Value Reference Range Interpretation [...] code = 417) 0.00ALPHA FETOPROTEIN (AFP), TUMOR [id number] 16:31:00 Test Item Value Reference Range Interpretation Comments ALPHA-FETOPROTEIN (BEAKER) (test 3.3 ng/mL <10.0 code = 1094) Effective 06/14/2014: Reference Range ChangeNew: <10.0 Previous: 0.0-8.0 BASIC METABOLIC [id number] 16:13:00 Test Item Value Reference Range Interpretation [...] FOR DIALYSIS PATIEN TS. Specimen slightly ictericLIPID [id number] 16:13:00 Test Item Value Reference Range Interpretation [...] Very High >=190 Specimen slightly ictericHEPATIC FUNCTION [id number] 16:13:00 Test Item Value Reference Range Interpretation [...] (test code = 364) Specimen slightly ictericPROTHROMBIN [id number] 16:13:00 Test Item Value Reference Range Interpretation [...]
--- OUTSIDE RECORDS SUMMARY | 2020-06-21 07:55 | XMS REPORT ---
:1955 Author Organization [facility] Address 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 ALLERGIES Allergen (clinical Drug/Non Drug Reaction Allergy Type Onset Date S tatus drug ingredient) Allergy documented on EMR erythromycin Erythromycin(NDC vomiting/diarrh Drug Allergy Active Code:[address]-40) ea Sulfa hives Drug Allergy Active tetracycline Tetracycline hives Drug Allergy Active HCl([facility] Code:[address]-08) Levaquin vomiting/diarrh Drug Allergy Active ea ENCOUNTERS from 1955 to 2020-06-19 Encounter Location Date Provider Diagnosis [facility] [address], [place] [address] IMMUNIZATIONS Vaccine Route Administration Date Status Hepatitis [...] REASON FOR REFERRAL No Information VITAL SIGNS No information MEDICATIONS Medication SIG (Take, Route, Notes Start Date End Date Status Frequency, Duration) Xifaxan 550 MG 1 tablet Orally Activ e Twice a day for 30 day(s) Cimetidine 200 MG 1 tablet as needed Active Orally Once a day Albuterol Sulfate HFA 1 puff as needed Oct, Active 108 (90 Base) MCG/ACT Inhalation every 6 hrs for 30 days Calcitriol 0.5 MCG 1 capsule Orally Active Once a day for 30 day(s) MagOx 400 400 (241.3 1 tablet with food Active Mg) MG Orally Once a day for 30 day(s) Lactulose 20 GM/30ML 15 ml Orally Once a Active day for 30 Amoxicillin-Pot 1 tablet Orally May, Jun, A ctive Clavulanate 875-125 MG every 12 hrs for 10 day(s) Gabapentin 100 MG 1 capsule Orally Jan, Active Once a day for 30 day(s) Folic Acid 0.8 MG 1 tablet Orally Once Active a day Triamcinolone Acetonide 1 application Jan, Not-Taking 0.1 % Externally Twice a day for 30 days Pantoprazole Sodium 40 1 tablet Orally Once Active MG a day for 30 day(s) PROCEDURES No Information RESULTS No Results REASON FOR VISIT Abdominal pain MEDICAL (GENERAL) HISTORY Type Description Date Medical [...] No Information FUNCTIONAL STATUS No Information ASSESSMENTS No Information PLAN OF TREATMENT Medication Medication Name Sig Start Date Stop Date Amoxicillin-Pot Clavulanate 1 tablet Orally every 12 May, 0 Jun, 875-125 MG hrs for 10 day(s) Next Appt Details Provider Name:Mitzy English 2020-07-19 10 :40:00 AM, [address] [facility], [address], [place], [address], Insurance Providers Payer Name Payer Payer Insured Patient Coverage Coverage End Address Phone Name Relationship to Start Date Ramirez e Insured [employer] [phone] Irma Christian self MEDICARE PPO [id number] [facility] [id number]
[2020-06-21 08:16] VITALS: BMI 30.9
[2020-06-21] MEDS ORDERED: ALBUMIN HUMAN 25% 300 ML IV ONE (09:36)
[2020-06-21 10:40] VITALS: BP 94/42; TEMP 97.7; O2SAT 100
--- NOTE | 2020-06-21 12:29 | RAD REPORT ---
EXAM DESCRIPTION: US - Paracentesis Proc Guidance - 06/21/2020 8:54 am CLINICAL HISTORY: Liver disease with ascites FINDINGS: The risks, benefits and alternatives to the procedure were explained to the patient and in formed consent obtained. The skin and subcutaneous tissues were anesthetized with Lidocaine. Under sonographic guidance an 8 F rench catheter was placed into the right lower quadrant. 9 liters of yellow fluid was removed and sen t to the lab. The patient experienced no immediate complication. IMPRESSION: Paracentesis
[2020-06-21 12:30] LABS: Body Fluid Source PERITONEAL
[2020-06-21 12:31] LABS: Appearance CLEAR (CLEAR); Body Fluid WBC 61 /mm^3; Color of fluid Yellow (COLORLESS)
== END 2020-06-21 10:30 | disposition home health service (06) ==
LOC: DS 07:31
PROVIDERS: ATTEND Internal Medicine Gastroenterology
DX: K70.31 Alcoholic cirrhosis of liver with ascites (principal); K70.0 Alcoholic fatty liver; R14.0 Abdominal distension (gaseous)
CPT/HCPCS: 87070; 36415; 89050; 96365; 49083; P9047

== ENCOUNTER 2020-07-05 08:00 | Day surgery (SDC) | payer OTHER ==
--- OUTSIDE RECORDS SUMMARY | 2020-07-05 08:31 | XMS REPORT | Clinical Summary ---
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
[2020-07-05 08:35] VITALS: BMI 30.9
--- OUTSIDE RECORDS SUMMARY | 2020-07-05 08:35 | XMS REPORT | Clinical Summary ---
:1955 Author Organization [facility] Address [address] [place] [address] Care Team Providers Name Role Phone Zeinab [...] Encounters Date Type Specialty Care Team Description 06/23/2020 Documentation Transplant Hepatology Cadence Shine 06/14/2020 Documentation Transplant Hepatology Cary Talley RN 06/13/2020 Orders Only Transplant Hepatology Cary Talley Pre- transplant evaluation for liver transplant; R RN 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, unspecified hepatic cirrhosis type (HCC) 06/09/2020 Telephone Transplant Hepatology Cary Talley labs due R RN 06/01/2020 Telephone Transplant Hepatology Rl, Labs O nlchester Vila 05/29/2020 Orders Only Transplant HepatCary Estrada Pre- transplant evaluation for liver transplant; R, RN 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, unspecified hepatic cirrhosis type (HCC) 05/25/2020 Telephone Central Scheduling Chris Shine nt Cadence 05/25/2020 Telephone Transplant Hepatology Rosio Shine 05/23/2020 Telephone Transplant Hepatology Rl, Labs O nly Cadence 05/23/2020 Orders Only Transplant Hepatology David Pre-tr ansplant evaluation for liver transplant; Mariaelena 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, unspecified hepatic cirrhosis type (HCC) 05/15/2020 Orders Only Transplant Hepatology Cary Talley Pre- transplant evaluation for liver transplant; R RN 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, unspecified hepatic cirrhosis type (HCC) 05/15/2020 Documentation Transplant Hepatology Cadence Shine 05/10/2020 Documentation Transplant Hepatology Cary Talley RN 05/09/2020 Documentation Transplant Hepatology David, Mary E 05/09/2020 Orders Only Transplant Hepatology David, Pre-tr ansplant evaluation for liver transplant; Tata Ledesma 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, unspecified hepatic cirrhosis type (HCC) 05/05/2020 Documentation Transplant Hepatology Hamilton, Jose Migueleyl 05/03/2020 Documentation Transplant Hepatology Cary Talley RN 05/02/2020 Documentation Transplant Hepatology Hamilton, Micheyblake 04/20/2020 Documentation Transplant Hepatology Hamilton, Micheyl 04/18/2020 Documentation Transplant Hepatology David, Tata Ledesma [...] Cary Talley organ transplant status (Primary Dx); R RN 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, unspecified hepatic cirrhosis type (HCC); Encounter for s creening mammogram for malignant neoplasm of breast ; Hepatic cirrhos is, unspecified hepatic cirrhosis type, unspecified whether ascites present (HCC) 04/12/2020 Telephone Transplant Hepatology Cary Talley ow-up R, RN 04/12/2020 Telephone Transplant Hepatology Cary Talley ow-up R, RN 04/12/2020 Documentation Transplant Hepatology Alfonso Micheyl 04/11/2020 Hospital Encounter Kristofer Crsos Cirrhosis of liver without ascites, unspecified hepatic [...] m alignant neoplasm 04/06/2020 Telephone Hepatology José Sanhi H, MA 03/20/2020 [facility] Documentation Transplant Hepatology Cary Talley R [...] Hepatology Cary Talley labs due R RN 02/16/2020 Documentation Transplant Hepatology Hamilton, Micheyblake [...] evaluation for liver transplant; Acute and subac ekuk hepatic failure with coma (HCC) 02/15/2020 Telephone [...] Orders Only Hepatology Laron, Line Hepatic Kastrup, RADIATION SAFETY OFFICER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) 02/03/2020 Documentation Hepatology Kristofer Cross MD 02/02/2020 Telephone Transplant Hepatology Cary Talley R RN 02/01/2020 UNOS Charge Visit Transplant Hepatology Rito Saini irrhosis of liver Ildefonso Spencer MD without ascites , unspecified hep atic cirrhosis type (HCC) 02/01/2020 Documentation Transplant Hepatology Jose Miguel Hamiltoneyblake 02/01/2020 Abstract Transplant Hepatology Cary Talley RN 02/01/2020 Telephone Hepatology PRIOR ITZEL Craven (HENRY GOMEZ) Kimmie 02/01/2020 Orders Only Transplant Hepatology Cary Talley Pre- transplant evaluation for liver transplant (Primary Dx); R, RN 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, unspecified hepatic cirrhosis type (HCC) 02/01/2020 Telephone Transplant Hepatology Cray Talley Labs Only RFRANCISCA 01/31/2020 Documentation Intensive Care Al-Leo Atwood 01/31/2020 Documentation Transplant Hepatology Cary Talley R RN 01/31/2020 Telephone Transplant Hepatology Cary Talley othe r R, RN 01/31/2020 Telephone Transplant Hepatology Cary Talley endo crine clearance R, RN 01/21/2020 Abstract Transplant Hepatology Poonam Martínez R 01/20/2020 Documentation Transplant Hepatology Poonam Martínez R 01/20/2020 Abstract Transplant Hepatology Inge Salazar MA 01/19/2020 Surgery Nallely, R & L CATH / MD Brian CORONARY ANGIOS (+/- LV) 01/18/2020 Outside Orders Radiology Mitzy English, RADIATION SAFETY OFFICER 01/17/2020 Anesthesia Event Gastroenterology Agatha Lr MD [...] Line Obesity (BMI 35.0-39.9 without comorbidity); Kastrup, RADIATION SAFETY OFFICER Adrenal mass, l eft ; Screening for m alignant neoplasm; Elevated serum creatinine; Other ascites 12/31/2019 Telephone Hepatology Dai Healy MA 12/21/2019 Documentation Hepatology Larry, Line Kastrup, RADIATION SAFETY OFFICER 12/17/2019 Abstract Hepatology Ivanna Healy MA 12/16/2019 Abstract Hepatology Janna Aparicio RN 12/16/2019 Abstract Hepatology Janna Aparicio RN 12/16/2019 Abstract Hepatology Janna Aparicio RN 12/15/2019 Audio - Hepatology Larry, Line Portal hypert ension (Primary Dx); Telemedicine Kastrup, RADIATION SAFETY OFFICER 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); Obesity (BMI 35 .0-39.9 without comorbidity); Adrenal mass, l eft ; Screening for m alignant neoplasm 12/14/2019 Telephone Hepatology José Sahni Appointment [facility] [place] after 07/05/2019 Family History Medical History Relation Name Comments [...] 07/11/2020 Appointment Radiology Kristofer Cross MD [address] [address] 0 [phone] 07/11/2020 Follow-Up Transplant Hepatology Whitney Cross MD [address] [address] 0 [phone] Health Maintenance Due Date Last Done Comments [...] 12:36 Pre-transplant Resu lts for this PM PAPER BOX MAKER evaluation for procedure are in liver transplant the results Cirrhosis of liver section. without ascites, unspecified hepatic cirrhosis type (HCC) CBC W/PLT COUNT & STAT 06/13/2020 12:36 Pre-transplant Resu lts for this AUTO DIFFERENTIAL PM PAPER BOX MAKER evaluation for procedur e are in liver transplant the results Cirrhosis of liver section. without ascites, unspecified hepatic cirrhosis type (HCC) COMPREHENSIVE STAT 06/13/2020 12:36 Pre-transplant Results for this METABOLIC PANEL PM PAPER BOX MAKER evaluation for procedure are in liver transplant the results Cirrhosis of liver section. without ascites, unspecified hepatic cirrhosis type (HCC) PROTHROMBIN TIME/INR STAT 06/13/2020 12:36 Pre-transplant R esults for this PM PAPER BOX MAKER evaluation for procedure are in liver transplant [...] procedure are i n the results section. [id number] AP Routine 01/19/2020 9:43 PHENOTYP PM CDT [...] 452 ms QTC Calculation(Bazett) 458 ms P [place] 59 degrees R [place] 32 degrees T [place] 56 degrees Normal sinus rhythm Normal ECG [...] procedure are i n the results section. [id number]\\, Routine 01/15/2020 4:17 Re sults for this [...] are i n the results section. SARS-COV2/RT-PCR ([facility] STAT 01/14/2020 7:28 R esults [...] results hepatic cirrhosis section. type (HCC) after 07/05/2019 Results Prothrombin time/INR (06/13/2020 12:36 PM PAPER BOX MAKER)Only the most recent of25 results within the time period is included. Pathologist Sig nature INR 1.2 (H) [facility] Comment: Reference Range 0.9-1.1 Moderate-intensity Warfarin Therapy 2.0-3.0 Higher-intensity Warfarin Therapy 3.0-4.0 PT 11.9 (H) 9.0 - 11.5 sec [facility] Comment: For additional information, please refer to http://education.Greekdrop.BeanJockey/faq/LZW767 (This link is being provided for informational/ educational purposes only.) Specimen Blood Narrative Performed At FASTING: NO [facility] Resulting Agency Comment Performing Organization Information: Site ID: [id number] Name: [facility] Address: [address] [place] [phone] Director: Jj Carrasco Performing Organization Address [facility]/Zipcode Phone Number [facility] [address] [facility] [place] [address] [facility] CBC with platelet count + automated diff (06/13/2020 12:36 PM PAPER BOX MAKER)Only the most recent of9 resultswithin the time period is included. [facility] Sig nature WBC 5.3 3.8 - 10.8 [...] Performing Organization Information: Site ID: [id number] Name: [facility] Address: [address] [place] [address] [place] [address] Director: Jj Carrasco Performing Organization Address City/State/Zipcode Phone Number [facility] [address] [facility] [place] [address] [facility] Bilirubin, direct (06/13/2020 12:36 PM PAPER BOX MAKER)Only the most recent of12 results within the time period is included. Pathologist Sig nature Bilirubin, Total 4.0 (H) 0.2 - 1.2 mg/dL [facility] Bilirubin, Direct 1.3 (H) < OR = 0.2 mg/dL [facility] Bilirubin, Indirect 2.7 (H) 0.2 - 1.2 mg/dL (calc) [facility] Specimen Blood Narrative Performed At FASTING: NO [facility] Resulting Agency Comment Performing Organization Information: Site ID: [id number] Name: [facility] Address: [address] [place] [phone] Director: Jj Carrasco Performing Organization Address City/State/Zipcode Phone Number [facility] [address] [facility] [place] [address] [facility] Comprehensive metabolic panel (06/13/2020 12:36 PM PAPER BOX MAKER)Only the most recent of16 resultswithin the time period is included. Glucose 98 65 - 139 [facility] Comment: mg/dL Non-fasting reference interval BUN 36 (H) 7 - 25 mg/dL [facility] Creatinine 2.03 (H) 0.50 - 0.99 [facility] Comment: mg/dL For patients >49 years of age, the reference limit for Creatinine is approximately 13% higher for people identified as -Maltese. eGFR If NonAfricn 25 (L) > OR [...] Agency Comment Performing Organization Information: Site ID: [facility] Name: [facility] Address: [address] [place] [phone] Director: Jj Carrasco Performing Organization Address [facility] [place] Phone Number [facility] [address] [place] [address] [facility] PLATELET ESTIMATION (05/02/2020 1:25 PM CDT)Only the most recent of3 results within the time period is included. Pathologist Sig nature Platelet Estimate DECREASED (A) ADEQUATE [facility] Specimen Narrative Performed At FASTING:NO [facility] FASTING: NO Resulting Agency Comment Performing Organization Information: Site ID: [facility] Name: [facility] Address: [address] [place] [phone] Director: Jj Carrasco Performing Organization Address [facility] [place] Phone Number [facility] [address] [place] [address] [facility] XR dxa bone density study (04/11/2020 11:51 AM CDT) Specimen Narrative Performed At FINAL REPORT Mr [employer] Bone density study, 04/11/2020 Clinical History: Screening [...] Report Verified Date/Time: 04/11/2020 13:34:32 Reading Location: [address] Re ading Room Procedure Note Interface, [...] Verified Date/Time: 04/11/2020 1 3:34:32 Reading Location: [address] Mammo Re ading Room Performing Organization Address City/State/Zipcode Phone Number [facility] CBC with platelet count + automated diff (04/11/2020 11:13 AM CDT)Only the most recent of16 resultswithin the time period is included. Pathologist Sig nature WBC 3.5 3.5 - 10.5 [facility] K[facility] RBC 2.51 (L) 3.93 - 5.22 [facility] M[facility] Hemoglobin 9.4 (L) 11.2 - 15.7 [facility] GM/DL [facility] Hematocrit 30.2 (L) 34.1 - 44.9 % [facility] MCV 120.3 (H) 79.4 - 94.8 fL [facility] MCH 37.5 (H) 25.6 - 32.2 pg [facility] MCHC 31.1 (L) 32.2 - 35.5 [facility] RDW 14.6 (H) 11.7 - 14.4 % [facility] Platelets 57 (L) 150 - 450 K/CU [facility] MPV 10.4 9.4 - 12.3 fL [facility] [...] CENTER # Neutros 2.09 1.56 - 6.13 [facility] # Lymphs 0.67 (L) 1.18 - 3.74 [facility] # Monos 0.43 (H) 0.24 - 0.36 [facility] # Eos 0.28 0.04 - 0.36 [facility] # Baso 0.02 0.01 - 0.08 [facility] Immature 0 0 - 1 % [facility] CENTER Specimen Blood Performing Organization Address City/[facility]/Zipcode Phone Number [address] [address] CENTER Alpha fetoprotein (AFP), tumor marker (04/11/2020 11:13 AM CDT)Only the most recent of3 resultswithin the time period is included. Pathologist Sig nature Alpha-Fetoprotein <2.0 <10.0 ng/mL [facility] Specimen Blood Narrative Performed At Sales Clerk Food ID - BS [facility] Performing Organization Address City/[facility] [place] Phone Number [address] [address] CENTER Miscellaneous lab test (02/15/2020 12:29 PM CDT)Only the most recent of2 results within the time period is included. Pathologist Sig nature Scan Result [facility] Specimen Blood Narrative Performed At This result has an attachment that is no t available. Performing Organization Address City/State/Zipcode Phone Number [facility]AC[facility] [address] [place], [place] Magnesium (02/15/2020 12:29 PM CDT)Only the most recent of13 resultswithin the time period is included. Pathologist Sig nature Magnesium 1.8 1.6 - 2.6 mg/dL [facility] Specimen Blood Narrative Performed At Sales Clerk Food ID - LM [facility] Performing Organization Address City/State/Zipcode Phone Number [facility] [address] [place] [address] CENTER RHYTHM STRIP - SCAN [...] analytical performance characteristics have been determined by [facility]. It has not been cleared or approved by FDA. This assay has been validated pursuant to the CLIA regulations and is used for clini steven purposes. Normetanephrine 213 (H) < OR = 148 [facility] Comment: pg/mL INCORPORATED This test was developed and its analytical performance characteristics have been determined by [facility]. It has not been cleared or approved [...] 2008. For additional information, please refer to http://education.Roundrate/faq/MetFractFree (This link is being provided for informational/educati onal purposes only.) This test was developed and its analytical performance characteristics have been determined by [facility]. It has not been cleared or approved by FDA. This assay has been validated pursuant to the CLIA regulations and is used for clini steven purposes. Specimen Blood Narrative Performed At Performing Lab [facility] EZ [facility] [place] [facility] [address] [place] [address] Mark Encarnacion MD, PhD, AMINA Performing Organization Address City/[facility]/Zipcode [place] [address] INCORPORATED [address] [facility] Calcium, Ionized (01/26/2020 3:50 AM CDT)Only the most recent of7 resultswithin the time period is included. Pathologist Sig nature Calcium, Ion 1.11 (L) 1.12 - 1.27 mmol/L [facility] pH, Blood 7.41 [facility] Specimen Blood Performing Organization Address [facility] [place] [address] CENTER Phosphorus (01/26/2020 3:50 AM CDT)Only the most recent of7 resultswithin the time period is included. Pathologist Sig nature Phosphorus 3.2 2.3 - 4.7 mg/dL [facility] Specimen Blood Narrative Performed At Sales Clerk Food ID - BS [facility] Performing Organization Address [facility] [place] Phone Number [address] [address] CENTER Hepatic function panel (01/26/2020 3:50 AM [...] MEDICAL CENTER Specimen Blood Narrative Performed At Sales Clerk Food ID - BS [facility] Specimen moderately icteric Performing Organization Address City/State/Zipcode Phone Number [facility] [address] [place] [address] CENTER Manual Differential (01/25/2020 3:47 [...] MEDICAL CENTER Specimen Blood Narrative Performed At Sales Clerk Food ID - [id number] [facility] Sales Clerk Food ID - Maria Del Carmen Anguiano User comments: Slide comments: Performing Organization Address City/State/Zipcode Phone Number [facility] [address] [place] [address] [place] Basic Metabolic Panel (01/25/2020 3:47 AM CDT)Only [...] CENTER Creatinine 2.35 (H) 0.57 - 1.25 [facility] mg/dL [facility] Glucose 108 (H) 70 - 105 mg/dL [facility] Calcium 8.7 8.4 - 10.2 [facility] mg/dL [facility] EGFR 21Comment: ESTIMATED mL/min/1.[address] [facility] GFR IS NOT [facility] ACCURATE DEVINE CREATININE CLEARANCE IN PREDICTING GLOMERULAR FILTRATION RATE. ESTIMATED GFR IS NOT APPLICABLE FOR DIALYSIS PATIENTS. Specimen Blood Narrative Performed At Sales Clerk Food ID - PIAYA L [facility] Specimen moderately icteric Performing Organization Address City/[facility]/Zipcode Phone Number [facility] [address] [place] [address] [place] TRANSFUSION SERVICE REPORT - SCAN (01/24/2020 6:00 [...] CDT) Narrative Performed At Epifanio Giles RRT CERAMIC DESIGNER 01/24/20 10:52 AM [facility] PFT CHARTING REPORT Infection Control/Hand Hygiene procedure s followed throughout the encounter with patient: Yes Patient Identification Method: Patient n celia verified on armband, and Medical record on armband, Is the order complete?: Yes Account ID#: [id number] Patient Name: Cici Calderon Birthdate: 1955 Age: [...] CDT) Narrative Performed At Epifanio Giles RRT, CERAMIC DESIGNER 01/24/20 10:52 AM [facility] PFT CHARTING REPORT Infection Control/Hand Hygiene procedure s followed throughout the encounter with patient: Yes Patient Identification Method: Patient n celia verified on armband, and Medical record on armband, Is the order complete?: Yes Account ID#: [id number] Patient Name: Cici Calderon Birthdate: 1955 Age: [...] CDT) Narrative Performed At Epifanio Giles RRT, CERAMIC DESIGNER 01/24/20 10:52 AM [facility] PFT CHARTING REPORT Infection Control/Hand Hygiene procedure s followed throughout the encounter with patient: Yes Patient Identification Method: Patient n celia verified on armband, and Medical record on armband, Is the order complete?: Yes Account ID#: [id number] Patient Name: Cici Calderon Birthdate: 1955 Age: [...] CDT) Narrative Performed At Janina Meehan RRT, CERAMIC DESIGNER 01/24/20 20 2:39 PM [facility] PFT CHARTING REPORT Infection Control/Hand Hygiene procedure s followed throughout the encounter with patient: Yes Patient Identification Method: Patient n celia verified on armband, and Medical record on armband, Is the order complete?: Account ID#: [id number] Patient Name: Cici Calderon Birthdate: 1955 Age: [...] time period is included. Pathologist Sig dima CROSSMATCH COMPATIBLE SAFETRACE TX Unit ABO A Pos SAFETRACE TX UNIT NUMBER [id number] SAFETRACE TX Status TX_TIMEINCHART SAFETRACE TX Blood Bank Product RED BLOOD CELLS SAFETRACE [place] PRODUCT CODE [id number] SAFETRACE [place] Specimen Other Performing Organization Address City/State/Zipcode Phone Number SAFETRACE [place] B-type Natriuretic Factor (BNP) (01/23/2020 4:32 AM CDT)Only the most recent of 2 resultswithin the time period is included. Pathologist Nam ch BNP 2,179 (H) 0 - 100 pg/mL [facility] Specimen Blood Narrative Performed At Sales Clerk Food ID - MITCH L [facility] Performing Organization Address City/[facility]/Zipcode Phone Number [facility] [address] [place] [address] CENTER Prepare Leuko-Red PLT (01/22/2020 11:54 PM CDT)Only the most recent of2 results within the time period is included. Pathologist Sig nature Unit ABO A Pos SAFETRACE TX UNIT NUMBER [id number] SAFETRACE TX Status WORK IN PROGRESS SAFETRACE TX Blood Bank Product PLATELETS SAFETRACE TX PRODUCT CODE [id number] SAFETRACE TX Unit ABO O Pos SAFETRACE TX UNIT NUMBER [id number] SAFETRACE TX Status TX_TIMEINCHART SAFETRACE TX Blood Bank Product PLATELETS SAFETRACE TX PRODUCT CODE [id number] SAFETRACE TX Specimen Blood Performing Organization Address [facility] [place] Phone Number SAFETRACE [place] Transfuse Leuko-Red RBC (01/22/2020 2:30 PM CDT)Only the most recent of2 resultswithin the time period is included.Cortisol (01/22/2020 8:23 AM CDT)Only the most recent of2 resultswithin the time period is included. Pathologist Sig nature Cortisol, Total 1.6 (L) 3.7 - 19.4 ug/dL [facility] Specimen Blood Narrative Performed At Sales Clerk Food ID - MITCH L [facility] Performing Organization Address [facility] Phone Number [facility] [address] [place] [address] CENTER ABORH, manual (01/22/2020 4:34 AM CDT) Pathologist Sig nature ABO Grouping A [facility] Rh Factor POS [facility] Specimen Blood Performing Organization Address [facility] Number [address] [address] Direct AHG (RAMIREZ)/Direct Jewel (01/22/2020 4:34 AM CDT) Pathologist Sig nature Direct AHG-IGG NEGATIVE [facility] Direct AHG-C3B, C3D NEGATVIE [facility] HEALT H [facility] Specimen Blood Performing Organization Address [facility] [place] Phone Number [address] [address] Body fluid culture + gram stain (01/21/2020 4:54 PM CDT) Result No growth [facility] Gram Stain Result <1+ White blood [facility] cells seen [facility] Gram Stain Result No organisms seen [facility] Specimen Body Fluid - Ascites (disorder) Performing Organization Address City/[facility] [place] Phone Number [facility] [address] [place] [address] [place] Body fluid cell count with differential (01/21/2020 4:54 PM CDT) Appearance Hazy (A) Clear [facility] Color Cele (A) Colorless, [facility] RBCs 4,000 (H) <=1 /cu mm [facility] [...] Fluid - Ascites (disorder) Performing Organization Address City/[facility] [place] Phone Number [facility] [address] [place] [address] [place] US paracentesis (01/21/2020 4:40 PM CDT) Specimen Narrative Performed At FINAL REPORT [facility] Ultrasound guided paracentesis Clinical History: Ascites. Sedation: None. Coke Crane Operator: Christine Ward PA-C Supervising Physician: Natan Chisholm MD Erp Project Manager: None. Estimated Blood Loss: < 1 [...] anesthesia was achieved with lidocaine, a 5 Zimbabwean one-step catheter was advanced into the peritoneal cavity under ultrasound guidance. After completion of drainage, the cathet er was removed. There was no evidence of complication. Impression: Successful ultrasound guided paracentesi s. Signed: Natan Chisholm MD Report Verified Date/Time: 01/24/2020 09:43:05 Reading Location: [facility] [id number] [facility] Emergency Department Reading Room Procedure Note Interface, External Ris In - 01/24/2020 9:45 AM CDT FINAL REPORT Ultrasound guided paracentesis Clinical History: Ascites. Sedation: None. [employer] Crane Operator: Christine Ward PA-C Supervising Physician: Natan Chisholm MD Erp Project Manager: None. Estimated Blood Loss: < 1 [...] anesthesia was achieved with lidocaine, a 5 Zimbabwean one-step catheter was advanced into the peritoneal cavity under ultrasound guidance. After completion of drainage, the cathet er was removed. There was no evidence of complication. Impression: Successful ultrasound guided paracentesi s. Signed: Natan Chisholm MD Report Verified Date/Time: 01/24/2020 0 9:43:05 Reading Location: [facility] B1 [id number] Ultrasoun d Reading Room Performing Organization Address City/[facility] [place] Phone Number [facility] Peripheral Blood Smear - Hold only (01/21/2020 9:31 AM CDT) Pathologist Sig nature Peripheral Smear Save saved [facility] Specimen Blood Performing Organization Address City/[facility] [place] Phone Number [address] [address] CENTER Reticulocyte count (01/21/2020 9:31 AM CDT)Only the most recent of2 results within the time period is included. Pathologist Sig nature % Retic 5.3 (H) 0.5 - 1.7 % [facility] Specimen Blood Narrative Performed At Sales Clerk Food ID - [id number] [facility] Performing Organization Address [facility] [place] Phone Number [address] [phone] [place] XR chest 1 view portable / bedside (01/21/2020 9:10 AM CDT)Only the most recent of2 resultswithin the time period is included. Specimen Narrative Performed At FINAL REPORT [facility] INDICATION: Edema COMPARISON: January 20, 2020 TECHNIQUE: [...] Report Verified Date/Time: 01/21/2020 10:03:32 [facility] Procedure Note Interface, External [...] Verified Date/Time: 01/21/2020 1 0:03:32 Reading [facility] Reading Room Performing Organization Address City/State/Zipcode Phone Number GE RIS Metanephrines, 24 hour urine (01/20/2020 10:51 PM CDT) TOTAL VOLUME 1000 mL [facility] Metanephrine 205 90 - 315 [facility] Comment: mcg/24 h INCORPORATED This test was developed and its analytical performance characteristics have been determined by [employer]. It has not been cleared or approved by FDA. This assay has been validated pursuant to the CLIA regulations and is used for clini steven purposes. Normetanephrine [phone] [facility] Comment: mcg/24 h INCORPORATED This test was developed and its analytical performance characteristics have been determined by [employer] [facility]. It has not been cleared [...] analytical performance characteristics have been determined by [employer]. It has not been cleared or approved by FDA. This assay has been validated pursuant to the CLIA regulations and is used for clini steven purposes. Specimen Urine Narrative Performed At Performing Lab [facility] [employer] [facility] [employer] [facility] te [address] [place] [address] Mark Encarnacion MD, PhD, AMINA Performing Organization Address City/State/Zipcode Phone Number [facility] [address] [facility] Catecholamines, Fractionated, 24hr urine (01/20/2020 10:51 PM CDT) TOTAL VOLUME 1000 mL [facility] Epinephrine,24 Hr Ur <2 (L) 2 - 24 [facility] Comment: mcg/24 h INCORPORATED Result below clinical reportable range for this analyt e, which is 2 mcg/L. Reported result was calculated using 2 mcg/L. This test was developed and its analytical performance characteristics have been determined by [employer] [facility]. It has not been cleared or approved by FDA. This assay has been validated pursuant to the CLIA regulations and is used for clini steven purposes. Norepinephrine 9 (L) 15 - 100 [facility] Comment: mcg/24 h INCORPORATED This test was developed and its analytical performance characteristics have been determined by [employer] [facility]. It has not been cleared or approved by FDA. This assay has been validated pursuant to the CLIA regulations and is used for clini steven purposes. Calculated Total 9 (L) 26 - 121 [facility] Comment: mcg/24 h INCORPORATED This test was developed and its analytical performance characteristics have been determined by [employer] [facility]. It has not been cleared or approved [...] analytical performance characteristics have been determined by [employer] [facility]. It has not been cleared or approved by FDA. This assay has been validated pursuant to the CLIA regulations and is used for clini steven purposes. Creatinine,24 Hr 0.88 0.50 - 2.15 [facility] Urin g/24 h INCORPORATED Specimen Urine Narrative Performed At Performing Lab [facility]Z [facility] [address] [place] [address] Mark Encarnacion MD, PhD, AMINA Performing Organization Address City/State/Zipcode Phone Number [place] [address] Type and screen, automated (01/20/2020 8:39 PM CDT)Only the most recent of2 resultswithin the time period is included. Pathologist Sig nature ABO/RH AUTOMATED A POSITIVE [facility] Ab Scrn NEGATIVE [facility] Specimen Blood Performing Organization Address City/State/Zipcode Phone Number [facility] [address] [place] [address] MR abdomen without IV contrast (01/20/2020 5:54 PM CDT) Specimen Narrative Performed At FINAL REPORT [employer] TECHNIQUE: MRI of the abdomen WITHOUT in [...] Report Verified Date/Time: 01/21/2020 07:51:30 Reading Location: [facility] [employer] Reading Room - [place] [address] 1129 Procedure Note Interface, External Ris In [...] Verified Date/Time: 01/21/2020 0 7:51:30 Reading Location: [facility] Reading Room - [place] [address]9 Performing Organization Address City/State/Zipcode Phone Number GE RIS Urinalysis w/Microscopic + Reflex to Culture (01/19/2020 11:19 PM CDT) Color, UA Yellow [facility] Clarity, UA Hazy [facility] Specific [place], 1.017 1.001 - 1.035 [facility] pH, UA 5.5 5.0 - 8.0 [facility] [...] Urine Performing Organization Address City/State/Zipcode Phone Number [address] [address] [place] Sodium, random urine (01/19/2020 11:19 PM CDT)Only the most recent of3 results within the time period is included. Pathologist Sig nature Sodium Urine <20 meq/L [facility] [place] Specimen Urine Narrative Performed At Reference Range: No Normals [facility] Sales Clerk Food ID - PIAYA L Performing Organization Address City/[facility]/Zipcode Phone Number [address] [address] [place] Urinalysis w/Microscopic (01/19/2020 11:19 PM CDT)Only the most recent of2 resultswithin the time period is included. Color, UA Yellow [facility] Clarity, UA Hazy [facility] Specific [place], 1.017 1.001 - 1.035 [facility] pH, UA 5.5 5.0 - 8.0 [facility] [...] MEDICAL CENTER Specimen Urine Narrative Performed At Sales Clerk Food ID - [auto] [facility] Sales Clerk Food ID - tech Performing Organization Address [facility] [place] Phone Number [address] [address] CENTER Blood Culture - Routine (Right Venipuncture) (01/19/2020 9:45 PM CDT)Only the most recent of4 resultswithin the time period is included. Pathologist Sig nature Result No growth in 5 days [facility] Specimen Blood - Entire right upper arm (body str ucture) Performing Organization Address City/[facility]/Zipcode Phone Number [address] [address] CENTER [id number] PHENOTYP (01/19/2020 9:43 PM CDT) Specimen Blood - Entire right upper arm (body str ucture) Narrative Performed At This result has an attachment that is no t available. Performing Organization Address City/[facility] [place] Phone Number [facility] [address] [place], [place] Blood gas, arterial (01/19/2020 3:44 PM [...] Base Excess, Arterial -1.9 -2.0 - 3.0 [facility] mmol/L [facility] Patient Temperature 36.1 C [facility] FIO2 28.0 % [facility] Specimen Blood, Arterial Performing Organization Address [facility] [place] Phone Number [facility] [address] [place] [address] [place] Cryptococcal antigen (01/19/2020 3:04 PM CDT) Cryptococcal Negative Negative, [facility] Antigen, Serum Interference [facility] Specimen Blood Performing Organization Address [facility] [place] Phone Number [facility] [address] [place], [place] [phone] [place] Rubeola antibody IgG (01/19/2020 3:04 PM CDT) [...] patient. For additional information, please refer to http://education.[employer]/faq/ZLI657 (This link is being provided for informational/ educational purposes only.) Specimen Blood Narrative Performed At Performing Lab [facility] *[employer] [facility] [employer] [address] [place] [address] Sudhakar Hargrove MD Performing Organization Address [facility] [place] Phone Number [place] [address] INCORPORATED [address] [facility] Rubella antibody, IgG (01/19/2020 3:04 PM CDT) Pathologist Sig nature Rubella IgG Quant 127.0 (H) <8.0 IU/mL [facility] Specimen Blood Narrative Performed At Rubella IgG Result Interpretation: [facility] </= 7.0 IU/mL Negative - Presumed non-immune 8.0 - 9.9 IU/mL Equivocal >= 10.0 IU/mL Positive - Presumed immune Performing Organization Address City/[facility] [place] Phone Number [address] [phone] [place] Varicella zoster antibody, IgG (01/19/2020 3:04 PM CDT) Pathologist Sig nature Varicella IgG 3.6 [facility] Specimen Blood Narrative Performed At VARICELLA ZOSTER RESULT INTERPRETATIONS: [facility] <=0.8 Al Nonreactive: Presumed non-immune to VZV 0.9-1.0 Al Equivocal >=1.1 Al Reactive: Presumed immune to VZV Performing Organization Address [facility] Phone Number [address] [address] [place] Mumps antibody, IgG (01/19/2020 3:04 PM CDT) [...] At Performing Lab [facility] *QD[employer] Diagnostics Infectious Dise [employer] [address] [place] [address] Sudhakar Hargrove MD Performing Organization Address City/[facility] [place] Phone Number [place] [address] INCORPORATED [address] [facility] US breast bilateral (01/19/2020 9:10 AM CDT) Specimen Narrative Performed At FINAL REPORT [facility] COMPLETE ULTRASOUND OF BOTH BREASTS AND AXILLA: [...] Report Verified Date/Time: 01/19/2020 09:52:28 Reading Location: [facility] 10th Flr Mammo Re ading Room Procedure [...] Verified Date/Time: 01/19/2020 0 9:52:28 Reading Location: [facility] 10th Flr Mammo Re ading Room Performing Organization Address City/State/Zipcode Phone Number RIS Aldosterone (01/19/2020 4:11 AM CDT) Aldosterone 22 ng/dL [facility] Comment: INCORPORATED Adult Reference Ranges for Aldosterone: Upright 8:00-10:00 am < or = 28 ng/dL Upright 4:00-6:00 pm < or = 21 ng/dL Supine 8:00-10:00 am 3-16 ng/dL This test was developed and its analytical performance characteristics have been determined by [employer] [facility] [place]. It has not been cleared or approved by FDA. This assay has been validated pursuant to the CLIA regulations and is used for clini steven purposes. Specimen Blood Narrative Performed At Performing Lab [facility] [employer]Z [employer] [place] [address] [place] [address] Mark Encarnacion MD, PhD, AMINA Performing Organization Address [facility] [place] [address] INCORPORATED [address] [facility] Renin, plasma (01/19/2020 4:11 AM CDT) PRA,LC/MS/MS 1.51 0.25 - 5.82 [employer] Comment: ng/mL/h INCORPORATED This test was developed and its analytical performance characteristics have been determined by [employer] [facility]. It has not been cleared or approved by FDA. This assay has been validated pursuant to the CLIA regulations and is used for clini steven purposes. Specimen Blood Narrative Performed At Performing Lab [facility] [place] [address] [place] [address] Mark Encarnacion MD, PhD, AMINA Performing Organization Address [facility] Phone Number [employer] [facility] [address] INCORPORATED [address] [facility] [address] abdomen without IV contrast (01/19/2020 12:40 AM CDT) Specimen Narrative Performed At FINAL REPORT [employer] TECHNIQUE: CT of the abdomen WITHOUT int [...] Report Verified Date/Time: 01/19/2020 08:09:04 Reading Location: [facility] Reading Room - [place] [address] Procedure Note Interface, External Ris In - [...] Verified Date/Time: 01/19/2020 0 8:09:04 Reading Location: [facility] Reading Room - [place] [address] Performing Organization Address City/State/Zipcode Phone Number [employer] US renal complete (01/19/2020 12:20 AM CDT) Specimen Narrative Performed At FINAL REPORT [employer] Ultrasound of the Kidneys Clinical History: Re-examine [...] Date/Time: 01/19/2020 0 1:26:59 Performing Organization Address City/[facility] [place] Phone Number RIS Protein, random urine (01/18/2020 8:49 PM CDT) Pathologist Sig nature Protein, Urine 45 (H) 0 - 14 mg/dL [facility] Specimen Urine - Urine, Sterile Collection Narrative Performed At Sales Clerk Food ID - EDWIN B [facility] [place] Performing Organization Address [facility] [place] Phone Number [address] [address] [place] Creatinine, random urine (01/18/2020 8:49 PM CDT)Only the most recent of2 resultswithin the time period is included. Pathologist Sig nature Creatinine, Ur 181.3 mg/dL [facility] [place] Specimen Urine - Urine, Sterile Collection Narrative Performed At Reference Range: No Normals [facility] Sales Clerk Food ID - EDWIN B Performing Organization Address [facility] [place] Phone Number [address] [address] [place] Eosinophil smear (01/18/2020 8:49 PM CDT) Pathologist Sig nature Eosinophil Smear Rare EOS =less No EOS seen [facility] than 5% WBCs [facility] seen are EOS (A) [place] Specimen Urine - Urine, Sterile Collection Performing Organization Address [facility] [place] Phone Number [address] [address] [place] Myocardial Perfusion Pet/CT (Rest & Stress) (01/18/2020 9:20 AM CDT) Specimen Narrative Performed At FINAL REPORT [place] [facility] RIS PROCEDURE: MYOCARDIAL PERFUSION PET IMAG ING (Rest/Stress) CPT CODE: 25672 INDICATION: Evaluation for liver transpl ant CARDIOVASCULAR [...] Report Verified Date/Time: 01/18/2020 12:45:40 Reading Location: [address] Reading Room Procedure Note Interface, External Ris In - 01/18/2020 12:47 PM CDT FINAL REPORT PROCEDURE: MYOCARDIAL PERFUSION PET IMAG ING (Rest/Stress) CPT CODE: 32036 INDICATION: Evaluation for liver transpl ant CARDIOVASCULAR [...] Verified Date/Time: 01/18/2020 1 2:45:40 Reading Location: [address] Reading Room Performing Organization Address City/State/Zipcode Phone Number [place] [address] [facility] RIS Treadmill tolerance(Non-Nuclear Treadmill) (01/18/2020 8:57 AM [...] on 01/19/2020 7:03:55 AM Performing Organization Address [facility] Phone Number [employer] ECG 12 lead (01/18/2020 8:46 AM CDT)Only the most recent of2 resultswithin the time period is included. Specimen Narrative Performed At Ventricular Rate 62 BPM GE MUSE Atrial Rate 62 BPM P-R Interval 138 ms QRS Duration 86 ms Q-T Interval 452 ms QTC Calculation(Bazett) 458 ms P [place] 59 degrees R [place] 32 degrees T [place] 56 degrees Normal sinus rhythm Low voltage [...] 452 ms QTC Calculation(Bazett) 458 ms P [place] 59 degrees R [place] 32 degrees T [place] 56 degrees Normal sinus rhythm Low voltage QRS Nonspecific ST abnormality 17 JAN 2020 11:05 Nonspecific T wave abnormality Nonspecif ic T wave abnormality, improved in QT has shortened Confirmed by MD DOUGHERTY YOCHAI ([id number]) on 01/18/2020 2:19:38 PM Performing Organization Address [facility] Phone Number [employer] T Spot TB (01/18/2020 6:10 AM CDT) [...] Address City/State/Zipcode Phone Number [facility] [address] [place] [address] [address] REPORT OF PROCEDURE - [...] nature Case Report Surgical Pathology Report Case: [id number] [facility] Authorizing Provider: Sylvei George MD Collected: 01/17/2020 08:15 AM [facility] Ordering Location: [address] Received: 01/17/2020 01:50 PM [facility] CENTER Service Pathologist: Humaira Mendez MD Specimen: Duodenum, bio psy ADDENDUM THIS ADUODENUMIS ISSUED TO R EPORT THE FINDINGS IN THE DEEPER LEVELS OF THE BIOPSY AND GIVE THE FINAL DIAGNOSIS: [facility] JESSICLINT'S Addendum [facility] electronically signed DUODENUM, ENDOSCOPIC BIOPSY: MEDICAL PARVIN TER by Humaira Mendez - ECTATIC VESSELS IN THE LAMINA PROPRIA, SUGGESTIVE OF PORTAL DUODENOPATHY MD Siva on - NO FEATURES OF CELIAC DISEASE SEEN 01/19/2020 at 4:12 PM - NO GRANULOMAS, DYSPLASIA OR MALIGNANCY SEEN DIAGNOSIS DUODENUM, ENDOSCOPIC BIOPSY: [facility] CLINT' S Electronically signed - SUPERFICIAL FRAGMENTS OF SMALL BOWEL MUCOSA WITH GASTRIC FOVEOLAR METAPLASIA [facility] by Humaira Mendez [facility] MD Siva o n 01/18/2020 at 3 :50 PM Signing Pathologist Direct Phone Line: CPT Code(s) 46739 [facility] CLINICAL HISTORY Procedure: upper endoscopy, biopsy and colonosc opy [facility] Pre and postop diagnosis: anemia [facility] SPECIMEN SOURCE A. Duodenum; biopsy [facility] GROSS DESCRIPTION A. The specimen is [facility] CEDRICK'S received in [facility] formalin labeled [facility] with the patient's name, accession number and "[email or web address]" and consists of one garduno-pink mucosal-covered pieces of tissue measuring 0.3 x 0.2 x 0.1 cm. The specimen is submitted entirely following filtration in a cassette A1. HS/pl [facility] Specimen Tissue - Duodenal structure (body struct ure) Performing Organization Address [facility] [place] Phone Number [address] [address] CENTER Lactate dehydrogenase (LDH) (01/16/2020 12:24 PM CDT) Pathologist Sig nature LDH 250 (H) 125 - 220 U/L [facility] Specimen Blood Narrative Performed At Sales Clerk Food ID - TUAN C [facility] Performing Organization Address [facility] [place] Phone Number [address] [address] CENTER Vitamin B12 and Folate (01/16/2020 11:25 AM CDT) Pathologist Sig [facility] Vitamin B12 1,107 (H) 213 - 816 pg/mL [facility] Folate 3.40 (L) >=7.00 ng/mL [facility] Specimen Blood Narrative Performed At Sales Clerk Food ID - NTP [facility] Performing Organization Address [facility] Phone Number [address] [address] CENTER HIV-1 Antigen with HIV-1/2 Antibody (01/16/2020 11:25 AM CDT) Pathologist Sig nature HIV-1 Antigen with Nonreactive Nonreactive [facility] HIV 1&2 Antibody [facility] Specimen Blood Narrative Performed At Sales Clerk Food ID - TUAN C [facility] Performing Organization Address [facility] [place] Phone Number [address] [address] CENTER Haptoglobin (01/16/2020 11:25 AM CDT) Pathologist Sig nature Haptoglobin <8 (L) 14 - 258 mg/dL [facility] Specimen Blood Narrative Performed At Sales Clerk Food ID - TUAN [facility]era [facility] Performing Organization Address City/State/Zipcode Phone Number [facility] [address] [place] [address] CENTER US abdominal with doppler (01/16/2020 6:30 AM CDT) Specimen Narrative Performed At FINAL REPORT [employer] ULTRASOUND ABDOMEN COMPLETE, ULTRASOUND DUPLEX DOPPLER HISTORY: [...] Report Verified Date/Time: 01/16/2020 07:32:01 Reading Location: [facility] C0[facility] Reading Room Procedure Note Interface, [...] Verified Date/Time: 01/16/2020 0 7:32:01 Reading Location: [facility] B1 C013T [facility] Performing Organization Address City/State/Zipcode Phone Number [facility] Drug screen, urine, transplant (01/15/2020 9:52 PM CDT) Specimen Urine Narrative Performed At This result has an attachment that is no t available. Performing Organization Address City/State/Zipcode Phone Number [facility] [address] [place] [address] Blood typing, automated - - at seperate draw time from initial type and screen (01/15/2020 6:16 PMCDT) Pathologist Sig nature ABO/RH AUTOMATED A POSITIVE [facility] (BEAKER) [facility] Specimen Blood Performing Organization Address City/[facility]/Zipcode Phone Number [facility] [address] [place] [address] CT chest without IV contrast (01/15/2020 5:54 PM CDT) Specimen Narrative Performed At FINAL REPORT [place] [address] RIS CT of the chest, without contrast [...] Report Verified Date/Time: 01/15/2020 17:57:54 Reading Location: [facility] B1 C013X [facility] Reading Room Procedure Note Interface, [...] Verified Date/Time: 01/15/2020 1 7:57:54 Reading Location: [facility] C0X [facility] Reading Room Performing Organization Address City/State/Zipcode Phone Number GE RIS XR chest 2 views (01/15/2020 4:57 PM CDT) Specimen Narrative Performed At FINAL REPORT [employer] History: Cirrhosis, liver transplant shama luation Comparison: [...] Report Verified Date/Time: 01/15/2020 17:16:49 Reading Location: [facility] C[facility]T [facility] Reading Room Procedure Note Interface, External Ris [...] Verified Date/Time: 01/15/2020 1 7:16:49 Reading Location: [address] Reading Room Performing Organization Address City/State/Zipcode [...] Report Verified Date/Time: 01/15/2020 17:22:12 Reading Location: [address] Reading Room Procedure Note Interface, External [...] Verified Date/Time: 01/15/2020 1 7:22:12 Reading Location: [facility] B1 C013T [facility] Reading Room Performing Organization Address City/State/Zipcode Phone Number GE RIS Mitochondria M2 Antibody (IgG) (01/15/2020 4:17 PM CDT) Mitochondria M2 Ab <20.0 See Note: U [facility] Comment: INCORPORATED Reference Range: NEGATIVE: < OR = 20.0 EQUIVOCAL: 20.1-24.9 POSITIVE: > OR = 25.0 Specimen Blood Narrative Performed At Performing Lab [facility] EZ [facility] [address] [place] [address] Mark Encarnacion MD, PhD, AMINA Performing Organization Address [facility] [place] Phone Number [place] [address] INCORPORATED [address] [facility] Iron, TIBC, % sat. (without ferritin) (01/15/2020 4:17 PM CDT) Pathologist Sig nature Iron 144.0 40.0 - 160.0 [facility] ug/dL [facility] TIBC 129 (L) 250 - 450 ug/dL [facility] Iron % Saturation 112 (H) 20 - 55 % [facility] Specimen Blood Narrative Performed At Sales Clerk Food ID - DB [facility] CENTER Performing Organization Address [facility]/Zipcode Phone Number [address] [address] CENTER Hepatitis C antibody (01/15/2020 4:17 PM CDT) Pathologist Sig nature Hepatitis C Ab Nonreactive Nonreactive [facility] Specimen Blood Narrative Performed At Sales Clerk Food ID - DB [facility] CENTER Performing Organization Address City/[facility]/Zipcode Phone Number [address] [address] CENTER Cytomegalovirus antibody, IgM (01/15/2020 4:17 PM CDT) Pathologist Sig nature CMV IGM Negative Negative, Equivocal [facility] Specimen Blood Narrative Performed At CMV IgM Result Interpretation: [facility] </= 0.8 Al Negative 0.9-1.0 Al Equivocal >/= 1.1 Al Positive Performing Organization Address [facility] [place] Phone Number [address] [address] CENTER Actin (Smooth Muscle) Antibody, [...] Lab [facility] EZ [facility] [address] [place] [address] Mark Encarnacion MD, PhD, AMINA Performing Organization Address [facility] [place] Phone Number [place] [address] INCORPORATED [address] [facility] [id number] (01/15/2020 4:17 PM CDT) Pathologist Sig nature A-1 Antitrypsin 121.20 90.00 - 200.00 [facility] mg/dL [facility] Specimen Blood Narrative Performed At Sales Clerk Food ID - DB [facility] Performing Organization Address [facility]/Zipcode Phone Number [address] [address] CENTER Hepatitis A antibody, IgM (01/15/2020 4:17 PM CDT) Pathologist Sig nature Hep A IgM Nonreactive Nonreactive [facility] Specimen Blood Narrative Performed At Sales Clerk Food ID - DB [facility] Performing Organization Address City/[facility]/Zipcode Phone Number [facility] [address] [place] [address] CENTER Carbohydrate antigen 19-9 ([place] [...] Lab [facility] E[facility] [place] [address] [place] [address] Mark Encarnacion MD, PhD, AMINA Performing Organization Address [facility] Phone Number [place] [address] INCORPORATED [address] [facility] Ceruloplasmin (01/15/2020 4:17 PM CDT) Pathologist Sig [facility] Ceruloplasmin 21 18 - 53 mg/dL [facility] JERAMY Specimen Blood Narrative Performed At Performing Lab [facility] *BEAT[employer]Z [employer] [facility], [address] [place] [phone] Jorje Jauregui MD, PhD Performing Organization Address [facility] [place] Phone Number [place] [address] INCORPORATED [address] [facility] Zinc (01/15/2020 4:17 PM CDT) Zinc 39 (L) 60 - 130 [facility] Comment: mcg/dL INCORPORATED This test was developed and its analytical performance characteristics have been determined by [employer] It has not been cleared or approved by [facility] FDA. This assay has been validated pursuant to the CLI A regulations and is used for clinical purposes. Specimen Blood Narrative Performed At Performing Lab [facility] *[employer] [facility], [address] [place] [phone] Jorje Jauregui MD, PhD Performing Organization Address City/State/Zipcode Phone Number [place] [address] [facility] [address] [facility] Hepatitis B core antibody, IgM (01/15/2020 4:17 PM CDT) Pathologist Sig nature Hep B C IgM Nonreactive Nonreactive [facility] Specimen Blood Narrative Performed At Sales Clerk Food ID - DB [facility] CENTER Performing Organization Address City/State/Zipcode Phone Number [facility] [address] [place] [address] CENTER EBV-VCA antibody, IgM (01/15/2020 4:17 PM CDT) GABRIEL CHING VIRAL Negative Negative, Equivocal [facility] CAPSID ANTIGEN IGM [facility] Specimen Blood Narrative Performed At Gabriel Ching Viral Capsid Antigen IgM Result [facility] Interpretation: </= 0.8 Al Negative 0.9-1.0 Al Equivocal >/= 1.1 Al Positive Performing Organization Address City/[facility]/Zipcode Phone Number [address] [address] CENTER EBV-VCA antibody, IgG (01/15/2020 4:17 PM CDT) GABRIEL CHING VIRAL Positive (A) Negative, [facility] ANTIGEN IGG Equivocal [facility] Specimen Blood Narrative Performed At Gabriel Ching Viral Capsid Antigen IgG Result [facility] Interpretation: </= 0.8 Al Negative 0.9-1.0 Al Equivocal >/= 1.1 Al Positive Performing Organization Address City/[facility]/Zipcode Phone Number [address] [address] CENTER Hepatitis B core antibody, total (01/15/2020 4:17 PM CDT) Pathologist Sig nature Hep B Core Total Ab Nonreactive Nonreactive [facility] Specimen Blood Narrative Performed At Sales Clerk Food ID - [place] [facility] Performing Organization Address City/State/Zipcode Phone Number [address] [address] CENTER Vitamin D, 25-Hydroxy (01/15/2020 4:17 PM CDT) Pathologist Sig nature Vitamin D 25-Hydroxy 6.2 (L) 6.6 - 49.9 ng/mL [facility] Specimen Blood Narrative Performed At Effective 05/07/2017: Reference Range Ch von [facility] New: 6.6-49.9 ng/mL Previous: 13.0-47.8 ng/mL Recommended Vitamin D Target Range: 30.0-40.0 ng/mL Sales Clerk Food ID - DB Performing Organization Address City/[facility]/Zipcode Phone Number [address] [address] CENTER RPR (01/15/2020 4:17 PM CDT) Pathologist Sig nature RPR Nonreactive Nonreactive [facility] Specimen Blood Performing Organization Address City/[facility]/Zipcode Phone Number [address] [address] CENTER Hepatitis B surface antibody (01/15/2020 4:17 PM CDT) Pathologist Sig nature Hep B S Ab 25.0 (H) <8.0 mIU/mL [facility] Specimen Blood Narrative Performed At Sales Clerk Food ID - DB [facility] Performing Organization Address City/State/Zipcode Phone Number [address] [address] CENTER Hepatitis B surface antigen (01/15/2020 4:17 PM CDT) Pathologist Sig nature HBsAg Screen Nonreactive Nonreactive [facility] Specimen Blood Narrative Performed At Specimen is considered negative for HBsAg. [facility] Performing Organization Address City/State/Zipcode Phone Number [facility] [address] [id number] [place] Cytomegalovirus antibody, IgG (01/15/2020 4:17 PM CDT) CYTOMEGALOVIRUS, Positive (A) Negative, [facility] IGG Equivocal [facility] Specimen Blood Narrative Performed At CMV IgG Result Interpretation: [facility] </= 0.8 Al Negative 0.9-1.0 Al Equivocal >/=1.1 Al Positive Performing Organization Address [facility] [place] Phone Number [address] [address] [place] aPTT (01/15/2020 4:17 PM CDT) Pathologist Sig nature PTT 36.8 (H) 22.5 - 36.0 seconds [facility] Specimen Blood Performing Organization Address [facility] Phone Number [address] [address] [place] Fibrinogen (01/15/2020 4:17 PM CDT) Pathologist [facility] Fibrinogen 114 (L) 225 - 434 mg/dl [facility] Specimen Blood Performing Organization Address [facility] Phone Number [address] [address] [place] Anti-Nuclear Antibody (REILLY) (01/15/2020 4:17 PM CDT) Pathologist Sig nature REILLY Negative Negative [facility] [place] Specimen Blood Narrative Performed At Test performed by IFA method. [facility] Test performed by IFA method. Performing Organization Address [facility] Phone Number [address] [address] [place] T3 (01/15/2020 4:17 PM CDT) Pathologist Sig nature T3, Total 51 48 - 159 ng/dL [facility] Specimen Blood Narrative Performed At This result has an attachment that is no t available. Performing Organization Address [facility]/Zipcode Phone Number [facility] [address] [facility] o, [place] Transferrin (01/15/2020 4:17 PM CDT) Pathologist Sig nature Transferrin 102 (L) 174 - 382 mg/dL [facility] Specimen Blood Narrative Performed At Sales Clerk Food ID - DB [facility] Specimen moderately icteric Performing Organization Address City/[facility] [place] Phone Number [address] [address] CENTER TSH (01/15/2020 4:17 PM CDT) Pathologist Sig nature TSH 5.549 (H) 0.350 - 4.940 uIU/mL [facility] Specimen Blood Narrative Performed At Sales Clerk Food ID - DB [facility] Performing Organization Address [facility] Phone Number [address] [address] CENTER T4 (01/15/2020 4:17 PM CDT) Pathologist Sig nature T4, Total 4.3 (L) 4.9 - 11.7 ug/dL [facility] Specimen Blood Narrative Performed At Sales Clerk Food ID - NTP [facility] Performing Organization Address [facility] Phone Number [address] [address] CENTER Hemoglobin A1c (01/15/2020 4:17 PM CDT) Pathologist Sig nature Hemoglobin A1C <3.8 (L) 4.3 - 6.1 % [facility] Specimen Blood Performing Organization Address City/[facility] [place] Phone Number [address] [address] CENTER Ferritin (01/15/2020 4:17 PM CDT) Pathologist Sig nature Ferritin 489.86 (H) 5.00 - 275.00 ng/mL [facility] Specimen Blood Narrative Performed At Sales Clerk Food ID - NTP [facility] Performing Organization Address City/[facility]/Zipcode Phone Number [address] [address] CENTER Carcinoembryonic Antigen (CEA) (01/15/2020 4:17 PM CDT) Pathologist Sig nature CEA, SERUM 7.9 (H) 0.0 - 5.0 ng/mL [facility] Specimen Blood Narrative Performed At Sales Clerk Food ID - DB [facility] Performing Organization Address City/[facility] [place] [address] CENTER Ethanol (01/15/2020 4:17 PM CDT) Pathologist Sig nature Ethanol Lvl <10 <=10 mg/dL [facility] Specimen Blood Narrative Performed At Sales Clerk Food ID - DB [facility] Performing Organization Address City/[facility] [place] [address] [place] 2D Echo W/Doppler(CW/PW/Color) (01/15/2020 2:45 PM CDT) Pathologist Sig nature Ejection Fraction [facility] ECHO [facility] Specimen Narrative Performed At Transthoracic Echocardiography Report (T TE) [facility] ECHO [facility]ARTLAB [facility] Demographics Patient Name CICI CALDERON Date of Study 01/15/2020 ALYSE Gender Female Visit Number [id number] Race Unknown Room Number 1515 Number Date of 1955 Referring Physician Ren Hernandez MD Age 64 year(s) Carriage Dogger Lisa Bautista [facility] S Interpreting Jai grajeda MD Physician Procedure [...] Study 01/15/2020 ALYSE Gender Female Visit Number [id number] Race Unknown Room [place] [id number] Number Date of 1955 Referri Physician Ren [...] l/min/m^2 Performing Organization Address City/State/Zipcode Phone Number [facility] Carotid doppler bilateral (01/15/2020 2:41 PM CDT) Pathologist Sig nature Ejection Fraction [facility] Specimen Impressions Performed At Right Impression [facility] 1. The internal, common and [...] Performed At LAB - Carotid Duplex Study [facility] Demographics Patient Name CICI CALDERON Date of Study 01/15/2020 ALYSE Age 64 Visit Number [id number] Gender Female Accession Number [id number] Date of 1955 Referring Eliecer Recinos. Room Number 1515 Physician Carriage Dogger Herbert Lechuga Interpreting LENKA Hickman MD Procedure Type of Study: Cerebral: Carotid, [...] Study 01/15/2020 ALYSE Age 64 Visit Number [id number] Gen margarita Female Accession Number [id number] Ramirez e of 1955 Referring Eliecerlety Caruso Dona Peyton m Number 1515 Physician Carriage Dogger Herbert Lechuga Int erpreting Chelsea Resendez T Alvin foss MD Procedure Type of [...] Measurements:ICAPSV/CCAPS V 0.96.ICAEDV/CCAEDV 1.52. Performing Organization Address City/[facility]/Zipcode Phone Number [facility] ECHO [facility]ARTLAB [facility] Hepatitis panel, acute (01/15/2020 8:32 AM CDT) Pathologist Sig nature Hep A IgM Nonreactive Nonreactive [facility] Hep B C IgM Nonreactive Nonreactive [facility] Hepatitis C Ab Nonreactive Nonreactive [facility] HBsAg Screen Nonreactive Nonreactive [facility] Specimen Blood Narrative Performed At Sales Clerk Food ID - NTP [facility] Performing Organization Address City/[facility]/Zipcode Phone Number [facility] [address] [place] [address] CENTER Ammonia (01/15/2020 8:32 AM CDT) Pathologist Sig nature Ammonia 19 18 - 72 mol/L [facility] Specimen Blood Narrative Performed At Sales Clerk Food ID - NTP [facility] Performing Organization Address [facility] [place] Phone Number [address] [address] [place] Uric acid (01/15/2020 3:56 AM CDT) Pathologist Sig nature Uric Acid 15.7 (H) 2.6 - 7.2 mg/dL [facility] Specimen Blood Narrative Performed At Sales Clerk Food ID - NTP [facility] Specimen moderately icteric Performing Organization Address [facility] [place] Phone Number [address] [address] [place] Gamma Glutamyl Transferase (GGT) (01/15/2020 3:56 AM CDT) Pathologist Sig nature GGT 15 9 - 64 U/L [facility] Specimen Blood Narrative Performed At Sales Clerk Food ID - NTP [facility] Specimen moderately icteric Performing Organization Address [facility] [place] Phone Number [address] [address] [place] Lipid panel (01/15/2020 3:56 AM CDT) Pathologist Sig nature Triglycerides 86 mg/dL [facility] Cholesterol 101 mg/dL [facility] [place] HDL 12 mg/dL [facility] [place] LDL Calculated 72 mg/dL [facility] [place] Specimen Blood Narrative Performed At Triglyceride Reference Range: [facility] Low Risk <150 Borderline 150-199 High Risk 200-499 Very High Risk >=500 Cholesterol Reference Range: Low Risk <200 Borderline 200-239 High Risk >240 HDL Cholesterol Reference Range: Low Risk >=60 High Risk <40 LDL Cholesterol Reference Range: Optimal <100 Near Optimal 100-129 Borderline 130-159 High 160-189 Very High >=190 Sales Clerk Food ID - NTP Specimen moderately icteric Performing Organization Address City/State/Zipcode Phone Number [facility] [address] [place] [address] CENTER SARS-CoV2/RT-PCR (Asymptomatic ONLY) (01/14/2020 7:28 PM CDT) SARS-COV2/RT-PCR Not Detected Not Detected, [facility] Negative [facility] SARS-COV-[address] [facility] PERFORMING LAB [facility] Specimen Other - Nasopharyngeal wall structure (b arsenio structure) Narrative Performed At Negative results do not preclude SARS-CoV-2 [facility] infection and should not be used as [...] the Act. Fact Sheet for Healthcare Providers: https://www.[employer]/Documents/Xpert%20Xpre ss%20SARS%20CoV-2/Fact%20Sheets/302-4562%20SAR S-COV-2%20HEALTHCARE%20PROVIDERS%20FACT%20SHEE T.pdf Fact Sheet for Healthcare Patients: https://www.[employer]/Documents/Xpert%20Xpre ss%20SARS%20CoV-2/Fact%20Sheets/302-3801%20SAR S-COV-2%20PATIENT%20FACT%20SHEET.pdf Performing Laboratory: [facility] [address] [place] [address] Performing Organization Address City/State/Zipcode Phone Number [facility] [address] [place] [address] CENTER after 07/05/2019 Insurance Payer Benefit Plan / Subscriber ID Effective Dates Phone Addre ss Type Group AETNA - AETNA MEDICARE [id number] 2019-Presen [phone] [address] MEDICARE [id number] HMO POS PPO t 2 [id number] [place] [address] Advance Directives For more information, please contact: [phone] Code Status Date Activated Date Inactivated Comments Full Code 01/14/2020 8:09 PM 01/26/2020 8:41 PM This code status was determined by: Patient
--- OUTSIDE RECORDS SUMMARY | 2020-07-05 08:49 | XMS REPORT | Continuity of Care Document ---
:1955 Author Organization [facility] t Address [address] [place] [address] Care Team Providers Name Role Phone Nahun [...] Date Holli plunkett AETNA - [id number] [address] [facility] MED[facility] MGD 00:00:00 - Medical CAREAETNA [place] MEDICARE HMO POS [id number] [address] Problems Condition Condition Condition Status Onset Resolution [...] 2015-[address] [facility] on 00:00: t & [...] (BMI (BMI 09-[facility] - 35.0-39.9 35.0-39.9 00:00: t & Plan: [...] Allergy 09-01 [facility] - 00:00: Medical 00 [place] Levoflox Drug Active Other (See 2015-[address] acin Intolera Comments) 09-01 and - nce 00:00: diarrhea Medical 00 Center Sulfa Drug Active Rash 2015-[address] [facility] [address] (Sulfona Allergy 09-01 [facility] - mide 00:00: Medical Antibiot 00 Center ics) Tetracyc Drug Active Hives 2015-[address] [facility] lines Allergy 09-01 [facility] - 00[facility]00: Medical 00 [place] Tetracyc Adverse Active hives [facility] line HCl Reaction [facility] Levaquin Adverse Active vomiting/jocy C HI [facility] Reaction rrhea [facility] Erythrom Adverse Active vomiting/jocy [facility] Family History Family Member Diagnosis Comments Start Date Stop Date Source Natural brother Diabetes [facility] Natural brother Hypertension [facility] Natural brother Arthritis [facility] Natural brother COPD [facility] Natural father Diabetes [facility] Natural father Heart disease [facility] Natural mother Diabetes [facility] Natural mother Heart disease [facility] Natural sister Cancer [facility] Social History Social Habit Start Date Stop Date Quantity Comments Source Sex Assigned At [facility] Tobacco use and 2020-04-11 2020-04-[address] Fe kes - exposure 00:00:00 00:00:00 Medical Center Alcohol intake 2020-04-11 2020-04-11 Current drinker YAIMA carcamo [facility] - 00:[facility]:00 00:00:00 of alcohol [facility] (finding) Alcohol Comment 2016-07-01 2016-07-01 social last drink LETTY Smiley [facility] - [facility]:00 00:00:00 06/15/16 Medical Center Smoking Status Start Date Stop Date Source Former smoker 2020-04-11 00:00:00 2020-04-11 00:00:[address] [facility] [facility] Medications Ordered Filled Start Stop Current [...] type (HCC) ergocalcife 2020- Yes Vitamin D 09448V Q7D Take [address] rol 04-11 [...] 2 (two) times daily. ergocalcife 2019- No 20224H Q7D Take [address] rol [...] 2 (two) times daily. lactulose Yes 20g Q.[id number] Take [address] (CHRONULAC) 01-25 [id number] mLs (20 g [facility] - 20 gram/30 00:00: 3D total) by Mt dical mL solution 00 mouth 3 Cente [...] magnesium) daily. tablet midodrine 2019- No 2.5mg Q.[id number] Take [address] (PROAMATINE 01-25 [id number] tablet [facility] - ) 2.5 MG 00:00: [...] [facility] Sulfate HFA Sulfate HFA 4-09 [place] needed [facility] - [facility] Cimetidine Cimetidine Yes Mitzy [address] [facility] [address] [place] as needed [facility] Calcitriol Calcitriol Yes Mitzy [address] [address] [place] [facility] Lactulose Lactulose Yes Mitzy [address] [place] [facility] Xifaxan Xifaxan Yes Mitzy [address] [place] [facility] Folic Acid Folic Acid Yes Mitzy [address] [place] [facility]ics Spironolact Spironolact Yes Mitzy [address] one one [place] [facility] Vitamin D2 Vitamin D2 Yes Mitzy [address] [place] [facility] - [facility] MagOx 400 MagOx 400 Yes Mitzy [address] [place] with food [facility] - [facility] Clinics Tramadol Tramadol Yes Mitzy [address] HCl HCl [place] as needed [facility] - [facility] Midodrine Midodrine Yes Mitzy [address] HCl HCl [place] [facility] Pantoprazol Pantoprazol Yes Mitzy [address] e Sodium e Sodium [place] mixed with Lukes - apple [facility] juice or l applesauce [facility] Immunizations Ordered Filled Immunization Date Status Comments Sour e Immunization Name Name Hepatitis A (adult) Hepatitis A (adult) 2020-02-21 [facility]00 [facility] Hepatitis B (adult) Hepatitis B (adult) 2020-02-21 Completed [facility] - 00:00:00 [facility] Vital Signs Vital Name Observation Time Observation Value Comments Source Systolic blood 2020-04-11 09:39:00 104 mm[Hg] [facility] Diastolic blood 2020-04-11 09:39:00 43 mm[Hg] [facility] Heart rate 2020-04-11 09:39:00 85 /min [facility] Body temperature 2020-04-11 09:39:00 36.28 Shaneka [facility] Respiratory rate 2020-04-11 09:39:00 18 /min [facility] Body height 2020-04-11 09:39:00 162.6 cm [facility] Body weight 2020-04-11 09:39:00 84.959 kg [facility] BMI 2020-04-11 09:39:00 32.15 kg/m2 [facility] Oxygen saturation in 2020-04-11 09:39:00 95 /min [facility] - Arterial blood by Medical Ce nter Pulse oximetry Procedures Procedure Date / Time Performing Clinician Source Performed PROTHROMBIN TIME/INR 2020-06-13 12:36:00 AmericaKristofer theodore [facility] COMPREHENSIVE METABOLIC 2020-06-13 12:36:00 AmericaKristofer theodore [facility] CBC W/PLT COUNT & AUTO 2020-06-13 12:36:00 AmericaKristofer [facility] BILIRUBIN, DIRECT 2020-06-13 12:36:00 AmericaKristofer [facility] PROTHROMBIN TIME/INR 2020-05-17 13:41:00 AmericaKristofer [facility] COMPREHENSIVE METABOLIC 2020-05-17 13:41:00 AmericaKristofer [facility] CBC W/PLT COUNT & AUTO 2020-05-17 13:41:00 AmericaKristofer [facility] BILIRUBIN, DIRECT 2020-05-17 13:41:00 AmericaKristofer [facility] PROTHROMBIN TIME/INR 2020-05-09 12:29:00 AmericaKristofer theodore [facility] COMPREHENSIVE METABOLIC 2020-05-09 12:29:00 AmericaKristofer theodore [facility] CBC W/PLT COUNT & AUTO 2020-05-09 12:29:00 AmericaKristofer theodore [facility] BILIRUBIN, DIRECT 2020-05-09 12:29:00 AmericaKristofer theodore [facility] PROTHROMBIN TIME/INR 2020-05-02 13:25:00 AmericaKristofer theodore [facility] COMPREHENSIVE METABOLIC 2020-05-02 13:25:00 AmericaKristofer [facility] CBC W/PLT COUNT & AUTO 2020-05-02 13:25:00 AmericaKristofer theodore [facility] BILIRUBIN, DIRECT 2020-05-02 13:25:00 AmericaKristofer [facility] PLATELET ESTIMATION 2020-05-02 13:25:00 AmericaKristofer [facility] PROTHROMBIN TIME/INR 2020-04-25 13:13:00 AmericaKristofer theodore [facility] COMPREHENSIVE METABOLIC 2020-04-25 13:13:00 AmericaKristofer theodore [facility] CBC W/PLT COUNT & AUTO 2020-04-25 13:13:00 AmericaKristofer theodore [facility] BILIRUBIN, DIRECT 2020-04-25 13:13:00 AmericaKristofer [facility] PLATELET ESTIMATION 2020-04-25 13:13:00 AmericaKristofer theodore [facility] PROTHROMBIN TIME/INR 2020-04-18 08:56:00 AmericaKristofer theodore [facility] METABOLIC 2020-04-18 08:56:00 AmericaKristofer theodore [facility] CBC W/PLT COUNT & AUTO 2020-04-18 08:56:00 AmericaKristofer theodore [facility] BILIRUBIN, DIRECT 2020-04-18 08:56:00 AmericaKristofer theodore [facility] XR DXA BONE DENSITY STUDY 2020-04-11 11:51:00 Kristofer Montgomery [facility] ALPHA FETOPROTEIN (AFP), 2020-04-11 11:13:00 Sia Riley [facility] TUMOR MARKER [facility] BILIRUBIN, DIRECT 2020-04-11 11:13:00 Sia Riley [facility] COMPREHENSIVE METABOLIC 2020-04-11 11:13:00 Sia Riley [facility] PROTHROMBIN TIME/INR 2020-04-11 11:13:00 Sia Riley [facility] CBC W/PLT COUNT & AUTO 2020-04-11 11:13:00 Sia Riley [facility] PROTHROMBIN TIME/INR 2020-03-10 08:03:00 Kristofer Montgomery [facility] COMPREHENSIVE METABOLIC 2020-03-10 08:03:00 Kristofer Montgomery [facility] CBC W/PLT COUNT & AUTO 2020-03-10 08:03:00 AmericaKristofer theodore [facility] BILIRUBIN, DIRECT 2020-03-10 08:03:00 AmericaKristofer theodore [facility] MISCELLANEOUS LAB ORDER 2020-02-15 12:29:00 AmericaKristofer [facility] MAGNESIUM 2020-02-15 12:29:00 AmericaKristofer [facility] BILIRUBIN, DIRECT 2020-02-15 12:29:00 AmericaKristofer [facility] COMPREHENSIVE METABOLIC 2020-02-15 12:29:00 AmericaKristofer [facility] PROTHROMBIN TIME/INR 2020-02-15 12:29:00 AmericaKristofer [facility] CBC W/PLT COUNT & AUTO 2020-02-15 12:29:00 AmericaKristofer [facility] PROTHROMBIN TIME/INR 2020-02-08 10:23:00 AmericaKristofer [facility] COMPREHENSIVE METABOLIC 2020-02-08 10:23:00 AmericaKristofer [facility] CBC W/PLT COUNT & AUTO 2020-02-08 10:23:00 AmericaKristofer [facility] BILIRUBIN, DIRECT 2020-02-08 10:23:00 AmericaKristofer [facility] PLATELET ESTIMATION 2020-02-08 10:23:00 AmericaKristofer [facility] PROTHROMBIN TIME/INR 2020-02-01 09:25:00 AmericaKristofer theodore [facility] COMPREHENSIVE METABOLIC 2020-02-01 09:25:00 AmericaKristofer [facility] CBC W/PLT COUNT & AUTO 2020-02-01 09:25:00 AmericaKristofer [facility] BILIRUBIN, DIRECT 2020-02-01 09:25:00 AmericaKristofer [facility] RHYTHM STRIP - SCAN 2020-01-27 10:00:12 [facility] - SCAN 2020-01-27 10:00:07 [facility], [facility] TRANSFUSE LEUKO-REDUCED 2020-01-26 22:41:07 Miguel Angel Kaylin [facility] PLATELETS [facility] METANEPHRINES 2020-01-26 14:51:00 YahairaBlanca noriega [facility] HEPATIC FUNCTION PANEL 2020-01-26 03:50:00 [facility] PROTHROMBIN TIME/INR 2020-01-26 03:50:00 [facility] CALCIUM, IONIZED 2020-01-26 03:50:00 [facility] COMPREHENSIVE METABOLIC 2020-01-26 03:50:00 [facility] 2020-01-26 03:50[facility] 2020-01-26 03:50:00 [facility] CBC W/PLT COUNT & AUTO 2020-01-26 03:50:00 Florian Kinney [facility] HEPATIC FUNCTION PANEL 2020-01-25 03:47:00 [facility] PROTHROMBIN TIME/INR 2020-01-25 03:47:00 [facility] BASIC METABOLIC PANEL (7) 2020-01-25 03:47:00 Leena Arias [facility] MAGNESIUM 2020-01-25 03:47:00 [facility]ana [facility] CBC W/PLT COUNT & AUTO 2020-01-25 03:47:00 Florian Kinney [facility] (CELLAVISION MANUAL DIFF) 2020-01-25 03:47:00 Florian Kinney [facility] TRANSFUSION SERVICE REPORT 2020-01-24 18:00:13 [facility], [facility] PULMONARY FUNCTION - SCAN 2020-01-24 13:10:09 Provider, [facility] SPIROMETRY 2020-01-24 10:41:00 [facility] DLCO (SINGLE BREATH 2020-01-24 10:41:[address] [facility] - DIFFUSION) [facility] LUNG VOLUMES 2020-01-24 10:41:00 [facility] 6 MINUTE WALK(FOR LUNG 2020-01-24 10:20:00 [facility] - TRANSPLANT ONLY) [facility] HEPATIC FUNCTION PANEL 2020-01-24 03:57:00 [facility] PROTHROMBIN TIME/INR 2020-01-24 03:57:00 [facility] CALCIUM, IONIZED 2020-01-24 03:57:00 [facility] PHOSPHORUS 2020-01-24 03:57:00 Kermit Nicole [facility] BASIC METABOLIC PANEL (7) 2020-01-24 03:57:00 Leena Arias [facility], I [facility] MAGNESIUM 2020-01-24 03:57:00 Leena Arias [facility] CBC W/PLT COUNT & AUTO 2020-01-24 03:57:00 [place] [facility] PREPARE LEUKO-REDUCED RBC 2020-01-23 23:54:00 Vitor Orozco CH, I [facility] TRANSFUSION SERVICE REPORT 2020-01-23 18:00:37 Provider, [facility] - - SCAN Scanning [facility] HEPATIC FUNCTION PANEL 2020-01-23 04:32:00 Rogers [facility] PROTHROMBIN TIME/INR 2020-01-23 04:32:00 Rogers [facility] B-TYPE NATRIURETIC FACTOR 2020-01-23 04:32:00 Kermit Nicole [facility] (BNP) [facility] CALCIUM, IONIZED 2020-01-23 04:32:00 Kermit Nicole [facility] PHOSPHORUS 2020-01-23 04:32:00 Kermit Nicole [facility] BASIC METABOLIC PANEL (7) 2020-01-23 04:32:00 Arias, Leena [facility] MAGNESIUM 2020-01-23 04:32:00 Arias, [facility] CBC W/PLT COUNT & AUTO 2020-01-23 04:32:00 [place] [facility] (CELLAVISION MANUAL DIFF) 2020-01-23 04:32:00 [facility] PREPARE LEUKO-REDUCED 2020-01-22 23:54:00 Miguel Angel, Kaylin [facility] PLATELETS [facility] TRANSFUSION SERVICE REPORT 2020-01-22 18:01:00 Provider, Default [facility] SCAN [facility] TRANSFUSE LEUKO-REDUCED RED 2020-01-22 14:30:53 Vitor Orozco [facility] BLOOD CELLS [facility] CORTISOL 2020-01-22 08:23:00 Christine Carlisle [facility] CALCIUM, IONIZED 2020-01-22 04:35:00 Russ Ha [facility] HEPATIC FUNCTION PANEL 2020-01-22 04:35:00 Galdino [facility] BASIC METABOLIC PANEL (7) 2020-01-22 04:35:00 [place] [facility] MAGNESIUM 2020-01-22 04:35:00 Arias [facility] CBC W/PLT COUNT & AUTO 2020-01-22 04:35:00 Arias [facility] (CELLAVISION MANUAL DIFF) 2020-01-22 04:35:00 [facility] PROTHROMBIN TIME/INR 2020-01-22 04:34:00 Galdino [facility] DIRECT [facility] (KRISTI)/DIRECT 2020-01-22 04:34:00 Gregory, [facility] ABORH, MANUAL 2020-01-22 04:34:00 Gregory [facility] TRANSFUSION SERVICE REPORT 2020-01-21 18:00:48 Provider, Default [facility] SCAN [facility] BODY FLUID CULTURE + GRAM 2020-01-21 16:54:00 Miguel Angel, Kaylin CH I [facility] BODY FLUID CELL COUNT WITH 2020-01-21 16:54:00 Miguel Angel, Kaylin [facility] US PARACENTESIS 2020-01-21 16:40:00 [facility] MISCELLANEOUS LAB ORDER 2020-01-21 09:31:00 Orestes [facility] HEPATIC FUNCTION PANEL 2020-01-21 09:31:00 [facility] PROTHROMBIN TIME/INR 2020-01-21 09:31:00 [facility] COMPREHENSIVE METABOLIC 2020-01-21 09:31:00 [facility] PHOSPH[facility]US 2020-01-21 09:31:00 Leland [facility] MAGNESIUM 2020-01-21 09:31:00 Leena Arias [facility] CORTISOL 2020-01-21 09:31:00 Ismasedrick Resnick [facility] RETICULOCYTE COUNT 2020-01-21 09:31:00 Oumou Jenkins [facility] PERIPHERAL BLOOD SMEAR - 2020-01-21 09:31:00 Miguel Angel [facility] CBC W/PLT COUNT & AUTO 2020-01-21 09:31:00 Russ Ha [facility] XR CHEST 1 VIEW 2020-01-21 09:10:00 Micheal Haneet [facility] PORTABLE/BEDSIDE [facility] METANEPHRINES, 24 HOUR 2020-01-20 22:51:00 Rogers [facility] URINE [facility] CATECHOLAMINES, 2020-01-20 22:51:00 [facility] - FRACTIONATED, 24HR URINE Medical Center TYPE AND SCREEN, AUTOMATED 2020-01-20 20:39:00 Miguel AngelAmna Sam[facility] XR CHEST 1 VIEW 2020-01-20 20:28:00 [facility] PORTABLE/BEDSIDE Medical [place] TRANSFUSION SERVICE REPORT 2020-01-20 18:01:[address] [facility] MR ABDOMEN WITHOUT IV 2020-01-20 17:54:00 [facility] CONTRAST [facility] HEPATIC FUNCTION PANEL 2020-01-20 04:10:00 [facility] PROTHROMBIN TIME/INR 2020-01-20 04:10:00 [facility] CALCIUM, IONIZED 2020-01-20 04:10:00 [facility] COMPREH[facility]IVE METABOLIC 2020-01-20 04:10:00 Leland [facility] PHOSPHORUS 2020-01-20 04:10:00 Leland [facility] MAGNESIUM 2020-01-20 04:10:00 Leena Arias [facility] CBC W/PLT COUNT & AUTO 2020-01-20 04:10:00 Ha [facility] (CELLAVISION MANUAL DIFF) 2020-01-20 04:10:00 [facility] PREPARE LEUKO-REDUCED RBC 2020-01-19 23:54:00 Miguel Angel, Kaylin [facility] URINALYSIS W/ MICROSCOPIC 2020-01-19 23:19:00 Leland [facility] SODIUM, RANDOM URINE 2020-01-19 23:19:00 Leland [facility] BLOOD CULTURE 2020-01-19 21:45:00 [facility] BLOOD CULTURE 2020-01-19 21:44:00 [facility] NLNLE-7-IFRDKOUHCZO 2020-01-19 21:43:00 Kristofer Montgomery [facility] TRANSFUSION SERVICE REPORT 2020-01-19 18:01:08 Moses [facility] R & L CATH / CORONARY 2020-01-19 16:30:00 Brian Browning [facility] ANGIOS (+/- LV) [facility] BLOOD GAS, ARTERIAL 2020-01-19 15:44:00 Kristofer Montogmery [facility] CRYPTOCOCCAL ANTIGEN 2020-01-19 15:04:00 Kristofer Montgomery [facility] MUMPS ANTIBODY, IGG 2020-01-19 15:04:00 Kristofer Montgomery [facility] RUBELLA ANTIBODY, IGG 2020-01-19 15:04:00 AmericaKristofer theodore [facility] RUBEOLA ANTIBODY IGG 2020-01-19 15:04:00 AmericaKristofer theodore [facility] VARICELLA ZOSTER ANTIBODY, 2020-01-19 15:04:00 AmericaKristofer theodore [facility] PROTHROMBIN TIME/INR 2020-01-19 11:00:00 Rogers [facility] US BREAST BILATERAL 2020-01-19 09:10:00 Kristofer Montgomery [facility] HEPATIC FUNCTION PANEL 2020-01-19 04:11:00 Rogers [facility] CALCIUM, IONIZED 2020-01-19 04:11:00 Leland [facility] COMPREHENSIVE METABOLIC 2020-01-19 04:11:00 [facility] PHOSPHORUS 2020-01-19 04:11:00 [facility] B-TYPE NATRIURETIC FACTOR 2020-01-19 04:11:00 [facility] ALDOSTERONE 2020-01-19 04:11:00 [facility] RENIN, PLASMA 2020-01-19 04:11:00 King Rehan Rich [facility] METANEPHRINES 2020-01-19 04:11:00 King Re[facility] MAGNESIUM 2020-01-19 04:11:00 Leena Arias [facility] CBC W/PLT COUNT & AUTO 2020-01-19 04:11:[address] [facility] [facility] IV 2020-01-19 00:40:00 RogersRoscoe [facility] CONTRAST [facility] US RENAL COMPLETE 2020-01-19 00:20:00 Roscoe Ahmadi [facility] PREPARE LEUKO-REDUCED 2020-01-18 23:54:00 Juana [facility] PLATELETS [facility] URINALYSIS W/ MICROSCOPIC 2020-01-18 20:49:00 Leland [facility] SODIUM, RANDOM URINE 2020-01-18 20:49:00 Leland [facility] PROTEIN, RANDOM URINE 2020-01-18 20:49:00 Leland [facility] CREATININE, RANDOM URINE 2020-01-18 20:49:00 Leland [facility] EOSINOPHIL SMEAR, URINE 2020-01-18 20:49:00 [facility] TRANSFUSION SERVICE REPORT 2020-01-18 18:31:51 [facility]zena [facility] - - SCAN Scanning [facility] TRANSFUSE LEUKO-REDUCED RED 2020-01-18 13:21:26 Miguel Angel [facility] BLOOD CELLS [facility] NM MYOCARDIAL PERFUSION 2020-01-18 09:20:00 Brian Browning [facility] - PET/CT (REST & STRESS) Medical C enter TREADMILL 2020-01-18 08:57:35 Unknown, Hl7 [facility] TOLERANCE(NON-NUCLEAR Medical Ce nter TREADMILL) ECG 12-LEAD 2020-01-18 08:46:42 Unknown, Hl7 [facility] BASIC METABOLIC PANEL (7) 2020-01-18 06:10:00 Ju[facility] MAGNESIUM 2020-01-18 06:10:00 [facility] T SPOT TB 2020-01-18 06:10:00 Miguel Angel [facility] HEPATIC FUNCTION PANEL 2020-01-18 06:10:00 Galdino [facility] CBC W/PLT COUNT & AUTO 2020-01-18 06:10:00 [place]ana [facility] (CELLAVISION MANUAL DIFF) 2020-01-18 06:10:00 Juana [facility] ECG 12-LEAD 2020-01-17 11:05:03 Brian Browning [facility] REPORT OF PROCEDURE - 2020-01-17 09:11:05 Doris [facility] REPORT OF PROCEDURE - 2020-01-17 08:39:23 Doris [facility] TISSUE EXAM 2020-01-17 08:15:00 Doris [facility] TRANSFUSE LEUKO-REDUCED 2020-01-17 08:04:[address] [facility] UPPER ENDOSCOPY,BIOPSY 2020-01-17 07:55:00 Doris [facility] COLONOSCOPY 2020-01-17 07:55:00 Doris [facility] PROTHROMBIN TIME/INR 2020-01-17 03:56:00 Mary Roper [facility] BASIC METABOLIC PANEL (7) 2020-01-17 03:56:00 [facility] MAGNESIUM 2020-01-17 03:56:00 [facility]ana [facility] CBC W/PLT COUNT & AUTO 2020-01-17 03:56:00 [facility]ana [facility] (CELLAVISION MANUAL DIFF) 2020-01-17 03:56:00 [facility] TRANSFUSION SERVICE REPORT 2020-01-16 18:00:27 Moses, Bozena [facility] - - [facility] BLOOD CULTURE 2020-01-16 12:25:00 [facility] LACTATE DEHYDROGENASE (LDH) 2020-01-16 12:24:00 Juan Minor [facility] RETICULOCYTE COUNT 2020-01-16 12:23:00 Juan Minor [facility] BLOOD CULTURE 2020-01-16 11:25:00 [facility] HIV-1 ANTIGEN WITH HIV-1/2 2020-01-16 11:25:00 Shady Gonzáles [facility] VITAMIN B12 AND FOLATE 2020-01-16 11:25:00 Juan Minor [facility] HAPTOGLOBIN 2020-01-16 11:25:00 Juan Minor [facility] US ABDOMINAL WITH DOPPLER 2020-01-16 06:30:00 Shady Gonzáles [facility] PROTHROMBIN TIME/INR 2020-01-16 03:38:[address] [facility] HEPATIC FUNCTION PANEL 2020-01-16 03:38:[address] [facility] BASIC METABOLIC PANEL (7) 2020-01-16 03:38:00 Juana [facility] MAGNESIUM 2020-01-16 03:38:00 [facility]ana [facility] CBC W/PLT COUNT & AUTO 2020-01-16 03:38:00 Juana [facility] DRUG SCREEN, URINE, 2020-01-15 21:52:00 [facility] BLOOD TYPING, AUTOMATED 2020-01-15 18:16:00 Shady Gonzáles [facility] CT CHEST WITHOUT IV 2020-01-15 17:54:00 [address]ady Gonzá[address] [facility] XR CHEST 2 VIEWS 2020-01-15 16:57:00 Shady Gonzáles [facility] XR MANDIBLE 4 VIEWS MIN 2020-01-15 16:39:00 Shady Gonzáles [facility] VITAMIN D, 25-HYDROXY 2020-01-15 16:17:00 EliecerShady davidson [facility] COMPREHENSIVE METABOLIC 2020-01-15 16:17:00 Shady Gonzáles [facility] BILIRUBIN, DIRECT 2020-01-15 16:17:00 Shady Gonzáles [facility] CALCIUM, IONIZED 2020-01-15 16:17:00 Shady Gonzáles [facility] ZINC 2020-01-15 16:17[facility]TI-NUCLEAR [facility]TIBODY (REILLY) 2020-01-15 16:17:00 EliecerShady davidson [facility] ACTIN (SMOOTH MUSCLE) 2020-01-15 16:17:00 Shady Gonzáles [facility] ANTIBODY, IGG [facility] MITOCHONDRIA M2 ANTIBODY 2020-01-15 16:17:00 EliecerShady davidson [facility] (IGG) [facility] IRON, TIBC, % SAT. (WITHOUT 2020-01-15 16:17:00 EliecerShady davidson [facility] FERRITIN) [facility] FERRITIN 2020-01-15 16:17:00 EliecerShady davidson [facility] TRANSFERRIN 2020-01-15 16:17:00 Shady Gonzáles [facility] AZGAX-5-TTHYQMXYKPZ\\, SERUM 2020-01-15 16:17:00 Shady Gonzáles [facility] CERULOPLASMIN 2020-01-15 16:17:00 Shady Gonzáles [facility] ALPHA FETOPROTEIN (AFP), 2020-01-15 16:17:00 EliecerShady davidson [facility] TUMOR MARKER [facility] CARCINOEMBRYONIC ANTIGEN 2020-01-15 16:17:00 Shady Gonzáles [facility] (CEA) [facility] CARBOHYDRATE ANTIGEN 19-9 2020-01-15 16:17:00 Shady Gonzáles [facility] (CA 19-9) [facility] HEMOGLOBIN A1C 2020-01-15 16:17:00 Shady Gonzáles [facility] TSH 2020-01-15 16:17:00 EliecerShady davidson [facility] T3 2020-01-15 16:17:00 Shady Gonzáles [facility] T4 2020-01-15 16:17:00 Shady Gonzáles [facility] ETHANOL 2020-01-15 16:17:00 Shady Gonzáles [facility] FIBRINOGEN 2020-01-15 16:17:00 Shady Gonzáles [facility] PROTHROMBIN TIME/INR 2020-01-15 16:17:00 EliecerShady davidson [facility] APTT 2020-01-15 16:17:00 Shady Gonzáles [facility] HEPATITIS A ANTIBODY, IGM 2020-01-15 16:17:00 EliecerShady davidson [facility] HEPATITIS B SURFACE ANTIGEN 2020-01-15 16:17:00 EliecerShady davidson [facility] HEPATITIS B SURFACE 2020-01-15 16:17:00 EliecerShady davidson [facility] ANTIBODY [facility] HEPATITIS B CORE ANTIBODY, 2020-01-15 16:17:00 EliecerShady davidson [facility] TOTAL [facility] HEPATITIS B CORE ANTIBODY, 2020-01-15 16:17:00 hSady Gonzáles [facility] HEPATITIS C ANTIBODY 2020-01-15 16:17:00 Shady Gonzáles [facility] RPR 2020-01-15 16:17:00 EliecerShady davidson [facility] CYTOMEGALOVIRUS ANTIBODY, 2020-01-15 16:17:00 EliecerShady davidson [facility] IGG [facility] CYTOMEGALOVIRUS ANTIBODY, 2020-01-15 16:17:00 Shady Gonzáles Irene [facility] IGM [facility] EBV ANTIBODY, IGM 2020-01-15 16:17:00 Shady Gonzáles [facility] TYPE AND SCREEN, AUTOMATED 2020-01-15 16:17:00 Shady Gonzáles [facility] 2D ECHO W/ DOPPLER 2020-01-15 14:45:25 Ren Hernandez [facility] (CW/PW/COLOR) [facility] CAROTID DOPPLER BILATERAL 2020-01-15 14:41:00 Shady Gonzáles Irene [facility] SODIUM, RANDOM URINE 2020-01-15 12:46:00 Graciela Stone [facility] CREATININE, RANDOM URINE 2020-01-15 12:46:00 Graciela Stone [facility] AMMONIA 2020-01-15 08:32:00 Stone, [facility] HEPATITIS PANEL, ACUTE 2020-01-15 08:32:[address] [facility] BASIC METABOLIC PANEL (7) 2020-01-15 03:56:00 Graciela Stone [facility] PROTHROMBIN TIME/INR 2020-01-15 03:56:[address] [facility] HEPATIC FUNCTION PANEL 2020-01-15 03:56:[address] [facility] MAGNESIUM 2020-01-15 03:56:00 Ramone [facility] URIC ACID 2020-01-15 03:56:00 Eliecer [facility] GAMMA GLUTAMYL TRANSFERASE 2020-01-15 03:56:00 Eliecer [facility] (GGT) [facility] PHOSPHORUS 2020-01-15 03:56:00 Eliecer [facility] LIPID PANEL 2020-01-15 03:56:00 Eliecer [facility] CBC W/PLT COUNT & AUTO 2020-01-15 03:56:00 Ramone [facility] (CELLAVISION MANUAL DIFF) 2020-01-15 03:56:00 Graciela Stone [facility] BASIC METABOLIC PANEL (7) 2020-01-14 21:59:00 Graciela Stone [facility] PROTHROMBIN TIME/INR 2020-01-14 21:59:[address] [facility] HEPATIC FUNCTION PANEL 2020-01-14 21:59:[address] [facility] CBC W/PLT COUNT & AUTO 2020-01-14 21:59:00 Ramone [facility] SARS-COV2/RT-PCR ([facility] 2020-01-14 19:28:00 Tameka Hunter [facility] I [facility] - REF LABS) [facility] BASIC METABOLIC PANEL (7) 2020-01-03 14:34:00 Larry, Line CH I [facility] HEPATIC FUNCTION PANEL 2020-01-03 14:34:00 Larry [facility] PROTHROMBIN TIME/INR 2020-01-03 14:34:00 [facility] ALPHA FETOPROTEIN (AFP), 2020-01-03 14:34:00 [facility] - TUMOR MARKER [facility] CBC W/PLT COUNT & AUTO 2020-01-03 14:34:00 [facility] DIFFERENTIAL [facility] Plan of Care Planned Activity Planned Date Details Comments Source Future Scheduled 2030-01-16 Screening for YAIMA [facility] - Test 00:00:00 malignant neoplasm of [facility] colon (procedure) [code = 521519257] Future Scheduled 2023-01-14 [facility]00 (procedure) [code = [facility] 48723598] Future Scheduled 2020-03-28 INFLUENZA VACCINE (#1) [facility]00 [code = INFLUENZA Medical Ce nter VACCINE (#1)] Future Scheduled 2020-02-26 INFLUENZA VACCINE [place] [facility] Test 00:00:00 [code = INFLUENZA VACCINE] Future Scheduled 2019-07-28 Medicare IPPE (WELCOME [facility] - Test 00:00:00 TO MEDICARE) [code = [facility] Medicare IPPE (WELCOME TO MEDICARE)] Future Scheduled 2019 65+ PNEUMOCOCCAL [facility] Test 00:00:00 VACCINE (1 of 1 - [...] Future Scheduled 2004 COLONOSCOPY SCREENING Ho [facility] Test 00:00:00 [code = COLONOSCOPY SCREENING] Future Scheduled 2004 SHINGLES VACCINES (#1) H [facility]ane [facility] Test 00:00:00 [code = SHINGLES VACCINES (#1)] Future Scheduled 1975 Screening for [facility] Test 00:00:00 malignant neoplasm of cervix (procedure) [code = 875211831] Future Scheduled [address] [facility] - Test 00:00:00 [facility] cervix (procedure) [code = 440453631] Future Scheduled [address] [facility] - Test 00:00:00 [facility] breast (procedure) [code = 169255964] Encounters Start End Encounter Admission Attending Care Care Encounter Source Date/Time Date/Time Type Type Clinicians Facility Department ID 2020-06-19 2020-06-19 Outpatient [facility] [id number] [facility] 2020-06-16 2020-06-16 [facility] [id number] [facility] 2020-05-02 2020-05-02 Out[facility] [id number] [facility] 2020-04-19 2020-04-19 Out[facility] [id number] [facility] 2020-02-21 2020-02-21 Outpatient Rafia Sanford [id number] 16:[facility]00 16:00:00 [facility] Outpat[facility] Clinics 2020-02-14 2020-02-14 Outpatient Rafia Moratayat [id number] 10:00:00 10:00:00 [facility] Out[facility] Clinics 2020-02-03 2020-02-03 Outpatient Rafia Moratayat [id number] 11:48:00 11:48:00 [facility] Outpati [facility] Clinics 2020-01-13 2020-01-13 [facility] [id number] 14:40:00 14:40:[address] [facility] Medicine Outpati ent Clinics 2020-01-03 2020-01-03 Transition [place] [id number] 00:00:00 00:00:00 of Care Aye [place] [id number] [place] [id number] 2019-12-28 2019-12-31 [facility] Yahir Borden [facility] [id number] 21:39:45 13:10:00 Encounter MarcusinnaJacklyn taylor [id number] [place] [id number] [place] [id number] 2019-11-03 2019-11-03 [facility] [id number] 13:20:00 13:20:[address] [facility] Medicine Outpati ent Clinics 2019-09-10 2019-09-10 [facility] [id number] 09:30:00 09:30:[address] [facility] Medicine Outpati ent Clinics 2019-08-31 2019-08-31 [facility] [id number] 08:00:00 08:00:[address] [facility] Medicine Outpati ent Clinics 2019-08-24 2019-08-24 [facility] [id number] 10:41:00 10:41:[address] [facility] Medicine Outpati ent Clinics 2019-08-19 2019-08-19 [facility] [id number] 13:00:00 13:00:[address] [facility] Outpat[facility] Clinics Results Test Description [...] OR = 60 L (test code = ) mL/min/1.73m2 eGFR If Africn Am (test 29 > OR = 60 L code = ) mL/min/1.73m2 BUN/Creatinine Ratio 18 6- 22 (calc) (test code = ) Sodium (test code = 137 mmol/L 135-742 9906513) Potassium, Serum (test 4.3 mmol/L 3.5-5.3 code = 20101213) Chloride (test code = 107 mmol/L 98-533 3459053) Carbon Dioxide, Total 23 mmol/L 20-32 (test code = ) Calcium, Serum (test 11.1 mg/dL 8.6-10.4 H code = 9693477) Protein, Total, Serum 5.6 g/dL 6.1-8.1 L (test code = 20101202) Albumin (test code = 3.3 g/dL 3.6-5.1 L ) GLOBULIN (QUEST) (test 2.3 1.9- 3.7 g/dL code = 7723050) (calc) Albumin Globulin Ratio 1.4 1.0- 2.5 [...] Performing Organization Information: Site ID: RGA Name: [facility] Address: [address] [place] [phone] Director: Alonso Linares Danilo Lab Interpretation Abnormal (test code = 56274-3) [facility] [id number] 18:31:00 Test Item Value Reference Range Interpretation Comments Bilirubin, Total (test 4.0 mg/dL 0.2-1.2 H code = 7582130) Bilirubin, Direct (test 1.3 mg/dL < OR = 0.2 H code = 6420040) Bilirubin, Indirect 2.7 0.2- 1.2 mg/dL H (test code = 4113508) (calc) VALENTE (test code = VALENTE) FASTING: NO RAC (test code = RAC) Performing Organization Information: Site ID: RGA Name: [facility] Address: [address] [place] [id number] Director: Alonso Kramerge Lab Interpretation Abnormal (test code = 07146-9) [facility] + automated [id number] 18:31:00 Test Item Value Reference Interpretation Comments [...] (test 58 140- 400 L Review of e code = ) Thousand/uL peripheral s mear revealsdecrease d numbers of plat elets. MPV (test code = 10.7 fL 7.5-12.5 7363198) # Neutros (test 3191 1,500 - 7,800 code = 1262739) cells/uL # Lymphs (test code 949 850- 3,900 = 731-0) cells/uL # Monos (test code 615 200- 950 = ) cells/uL # Eos (test code = 514 15- 500 H 711-2) cells/uL # Baso (test code = 32 [...] = Performing RAC) Organization Information: Site ID: JOSHUA Name: [facility] Address: [address] [place] [phone] Director: Alonso Carrasco Lab Interpretation Abnormal (test code = 78274-7) [facility] HospitalProthrombin time/[id number] 18:31:00 Test Item Value Reference Range Interpretation Comments INR (test code = 1.2 H Reference R von ) 0.9-1.1Moderate - intensity Warfarin Therap y 2.0-3.0Higher-i n tensity Warfari n Therapy 3.0-4.0 PT (test code = 11.9 9.0- 11.5 sec H For additio nal ) information, please refer tohttp://educat i on.questdiagnos [employer]/faq/FAQ 1 04(This link is being provided for informational/e d ucational purposes only.) VALENTE (test code = VALENTE) FASTING: NO RAC (test code = RAC) Performing Organization Information: Site ID: A Name: [facility] Address: [address] [place] [address] Director: Alonso Carrasco Lab Interpretation Abnormal (test code = 23963-4) [facility] HospitalPLATELET [id number] 18:02:00 Test Item Value Reference Range Interpretation Comments Platelet Estimate (test DECREASED ADEQUATE A code = 40845-9) VALENTE (test code = VALENTE) FASTING:NOFASTING: NO RAC (test code = RAC) Performing Organization Information: Site ID: RGA Name: [facility] Address: [address] [place] [address] Director: Alonso Carrasco Lab Interpretation (test Abnormal code = 95372-5) [facility] HospitalBILIRUBIN, [id number] 15:57:00 Test Item Value Reference Range Interpretation Comments BILIRUBIN DIRECT (BEAKER) (test 1.9 mg/dL 0.1-0.5 H code = 706) Revenue Cycle Specialist ID - BSCOMPREHENSIVE METABOLIC [id number] 15:57:00 Test Item Value Reference Range Interpretation [...] S NOT APPLICABLE FOR DIALYSIS PATIEN TS. Revenue Cycle Specialist ID - BSSpecimen moderately ictericAlpha fetoprotein (AFP), tumor marker 2020-04-11 15:41:00 Test Item Value Reference Range Interpretation Comments Alpha-Fetoprotein (test code <2.0 <10.0 ng/mL = 1834-1) VALENTE (test code = VALENTE) Revenue Cycle Specialist ID - BS Lab Interpretation (test Normal code = 88615-8) [facility]AL[facility] FETOPROTEIN (AFP), TUMOR [id number] 15:41:00 Test Item Value Reference Range Interpretation Comments ALPHA-FETOPROTEIN (BEAKER) (test code < ng/mL <10.0 = 1094) Revenue Cycle Specialist ID - BSRAD, BONE DENSITY [id number] 13:34:00Referring: Dr. Rowdy Zhang for Exam:->liver transplant waiting listFINAL REPORT Bone density study, 04/11/2020 Clinical History: Screening Bone mineral density measurementLumbar spine0.866 gm/mt3Omrtlxz neck0.714 gm/cm2 Standard deviation fromyoung adult population [...] Brooks Verified Date/Time: 04/11/2020 13:34:32 Reading Location: [address] Reading Room XR dxa bone density [id number] 13:34:00 Interface, External Ris In - 04/11/2020 1:36 PM CDTFINAL REPORT Bone densitystudy, 04/11/2020 Clinical History: Screening Bone mineral density measurementLumbar spine0.866 gm/zh8Efkszde neck0.714 gm/cm2 Standard deviation from young adult [...] Brooks Verified Date/Time: 04/11/2020 13:34:32 Reading Location: [address] Mammo Reading Room [facility]/[id number] 13:02:00 Test Item Value Reference Range Interpretation [...] heart valves.CBC with platelet count + automated [id number] 12:52:00 Test Item Value Reference Range Interpretation [...] K/CU MM L MPV (test code = 46109-3) 10.4 fL 9.4-12.3 nRBC (test code = [...] 2801) Lab Interpretation (test code = Abnormal 48734-3) [facility]/PLT COUNT & AUTO [id number] 12:52:00 Test Item Value Reference Range Interpretation [...] (BEAKER) (test code = 2801) MISCELLANEOUS LAB [id number] 12:14:00 Test Item Value Reference Range Interpretation Comments SCAN RESULT (test code = 2539768) Miscellaneous lab [id number] 12:14:00Scan ResultQUEST NON-INTERFACED LABCHI [facility]2020-07-21 13:17:00 Test Item Value Reference Range Interpretation Comments Magnesium (test code = 1.8 mg/dL 1.6-2.6 23105-0) VALENTE (test code = VALENTE) Revenue Cycle Specialist ID - LM Lab Interpretation (test Normal code = 92989-0) [facility]2020-07-21 13:17:00 Test Item Value Reference Range Interpretation Comments MAGNESIUM (BEAKER) (test code = 1.8 mg/dL 1.6-2.6 627) Revenue Cycle Specialist ID - LMCOMPREHENSIVE METABOLIC [id number] 13:17:00 Test Item Value Reference Range Interpretation [...] S NOT APPLICABLE FOR DIALYSIS PATIEN TS. Revenue Cycle Specialist ID - LMSpecimen moderately ictericBILIRUBIN, [id number] 13:17:00 Test Item Value Reference Range Interpretation Comments BILIRUBIN DIRECT (BEAKER) (test 2.5 mg/dL 0.1-0.5 H code = 706) Revenue [employer] Specialist ID - LMPROTHROMBIN TIME/[id number] 13:05:00 Test Item Value Reference Range Interpretation [...] mechanical heart valves.CBC W/PLT COUNT & AUTO [id number] 12:59:00 Test Item Value Reference Range Interpretation [...] 0-1 PERCENT (BEAKER) (test code = 2801) [id number] 10:36:00 Test Item Value Reference Interpretation Comments Range Metanephrine (test 46 pg/mL < OR = 57 This mushtaq t was developed code = 6926980) and its anal ytical performance characteristics havebeen determined by [facility].It h as not been cleared or appr jean-claude by FDA. This assay has been validatedpursua nt to the CLIA regulation s and is used for clinic al purposes. Normetanephrine 213 pg/mL < OR = 148 H This test w as developed (test code = and its analyti steven 3450011) performance characteristics havebeen determined by [facility].It h as not been cleared or [...] Reference: (1) Latrice Lorenz et al, Plasma Supply Chain Director mogranin A or Urine FractionatedMet anephrines Follow-Up Testi ng Improves the Diagnostic Accuracy of PlasmaFractiona madai Metanephrines f or Pheochromocytom a. The Journal of ClinicalEndocri nology and Metabolism 93 ( 1),91-95, 2008. For addit ional information, pl ease refer tohttp://educat ion.[employer]/f aq/MetFract Free(This link is being provided for informational/e ducational purposes only.) This test was developed a nd its analytical perf ormance characteristics havebeen determined by [facility].It h as not been cleared or appr jean-claude by FDA. This assay has been validatedpursua nt to the CLIA regulation s and is used for clinic al purposes. VALENTE (test code = Performing Lab VALENTE) [employer] [facility] [address] [place] [address] Mark Encarnacion MD, PhD, AMINA Lab Interpretation Abnormal (test code = 59312-2) [facility]chol[facility], Fractionated, 24hr [id number] 11:55:00 Test Item Value Reference Interpretation Comments Range TOTAL VOLUME (test 1000 mL code = 0789387) Epinephrine,24 Hr <2 2- 24 mcg/24 h L Result b elow clinical Ur (test code = reportable r von for ) this analyte, w hich is 2 mcg/L.Repo rted result was calc ulated using 2 mcg/L. This test was develo ped and its analyti steven performance characteristics havebeen determ ined by [facility] .It has not been cl eared or approved by FDA. This assay has been validatedpursua nt to the CLIA regula tions and is used for clinical purpos es. Norepinephrine 9 15- 100 mcg/24 L This test was (test code = h developed and i ts ) analytical performance characteristics havebeen determ ined by [facility] .It has not been cl eared or approved by FDA. This assay has been validatedpursua nt to the CLIA regula tions and is used for clinical purpos es. Calculated Total 9 26- 121 mcg/24 L This mushtaq t was E+Ne (test code = h developed and its 20190907) analytical performance characteristics havebeen determ ined by [facility] .It has not been cl [...] steven performance characteristics havebeen determ ined by [facility] .It has not been cl eared or approved by FDA. This assay has been validatedpursua nt to the CLIA regula tions and is used for clinical purpos es. Creatinine,24 Hr 0.88 0.50- 2.15 Urin (test code = g/24 h ) VALENTE (test code = Performing Lab VALENTE) [facility] [address] [facility] [place] [address] Mark Encarnacion MD, PhD, AMINA Lab Interpretation Abnormal (test code = 95157-1) [facility]OUS LAB [id number] 12:33:00 Test Item Value Reference Range Interpretation Comments SCAN RESULT (test code = 4994422) [id number] 16:28:00 Test Item Value Reference Range Interpretation Comments Lab Interpretation (test code = Normal 99361-8) [facility] HospitalMetanephrines, 24 hour [id number] 12:57:00 Test Item Value Reference Interpretation Comments Range TOTAL VOLUME (test 1000 mL code = 6991217) Metanephrine (test 205 90- 315 This mushtaq t was code = 9249512) mcg/24 h developed an d its analytical perf ormance characteristics havebeen determ ined by [facility] .It has not been cleare d or approved by FDA . This assay has been validatedpursua nt to the CLIA regula tions and is used for clinical purpos es. Normetanephrine 657 122- 676 This test w as (test code = mcg/24 h developed and i ts 20191029) analytical perf ormance characteristics havebeen determ ined by [facility] .It has not been cleare d [...] perf ormance characteristics havebeen determ ined by [facility] .It has not been cleare d or approved by FDA . This assay has been validatedpursua nt to the CLIA regula tions and is used for clinical purpos es. VALENTE (test code = Performing Lab VALENTE) [employer] [facility] [address] [facility] [place] [address] Mark Encarnacion MD, PhD, AMINA Lab Interpretation Abnormal (test code = 23293-8) [facility] HospitalCalcium, [id number] 05:42:00 Test Item Value Reference Range Interpretation Comments Calcium, Ion (test code = 1994-) 1.11 mmol/L 1.12-1.27 L pH, Blood (test code = 75862-9) 7.41 Lab Interpretation (test code = Abnormal 04492-6) [facility] HospitalCALCIUM, [id number] 05:42:00 Test Item Value Reference Range Interpretation Comments CALCIUM IONIZED (BEAKER) (test 1.11 mmol/L 1.12-1.27 L code = 698) PH, BLOOD (BEAKER) (test code = 7.41 1810) COMPREHENSIVE METABOLIC [id number] 04:57:00 Test Item Value Reference Range Interpretation [...] S NOT APPLICABLE FOR DIALYSIS PATIEN TS. Revenue Cycle Specialist ID - BSSpecimen moderately ictericHepatic function [id number] 04:53:00 Test Item Value Reference Range Interpretation Comments Protein, Total (test code 5.7 6.0- 8.3 gm/dL L = 2885-2) Albumin (test code = 3.4 g/dL 3.5-5 L 94072-6) Total Bilirubin (test 6.9 mg/dL 0.2-1.2 H code = 1974-2) Bilirubin, Direct (test 2.2 mg/dL 0.1-0.5 H code = 1967-7) Alkaline Phosphatase 58 U/L 40-150 (test code = 6768-6) AST (test code = 1920-8) 36 U/L 5-34 H ALT (test code = 1742-6) 13 U/L 6-55 VALENTE (test code = VALENTE) Revenue Cycle Specialist ID - BSSpecimen moderately icteric Lab Interpretation (test Abnormal code = 51534-8) [facility] Hospital[facility]osph[facility]2020-07-01 04:53:00 Test Item Value Reference Range Interpretation Comments Phosphorus (test code = 3.2 mg/dL 2.3-4.7 2777-1) VALENTE (test code = VALENTE) Revenue Cycle Specialist ID - BS Lab Interpretation (test Normal code = 03028-0) [facility] HospitalPHOSPHORUS2020-07-01 04:53:00 Test Item Value Reference Range Interpretation Comments PHOSPHORUS (BEAKER) (test code = 3.2 mg/dL 2.3-4.7 604) Revenue Cycle Specialist ID - [id number] 04:53:00 Test Item Value Reference Range Interpretation Comments MAGNESIUM (BEAKER) (test code = 1.7 mg/dL 1.6-2.6 627) Revenue Cycle Specialist ID - BSHEPATIC FUNCTION [id number] 04:53:00 Test Item Value Reference Range Interpretation [...] (test code = 13 U/L 6-55 347) Revenue Cycle Specialist ID - BSSpecimen moderately ictericCBC W/PLT COUNT & AUTO [id number] 04:42:00 Test Item Value Reference Range Interpretation [...] PERCENT (BEAKER) (test code = 2801) PROTHROMBIN TIME/[id number] 04:36:00 Test Item Value Reference Range Interpretation [...] (test No organisms seen code = 1123) [facility] HospitalBODY FLUID C[facility] + GRAM [id number] 12:05:00 Test Item Value Reference Range Interpretation Comments CULTURE (BEAKER) (test No growth code = 1095) GRAM STAIN RESULT <1+ White blood cells (BEAKER) (test code = seen 1123) GRAM STAIN RESULT No organisms seen (BEAKER) (test code = 17784) Manual [id number] 07:35:00 Test Item Value Reference Range Interpretation [...] Poikilocytes (test code = 2+ moderate 966) [place] Cells (test code = 2+ moderate 474) Artifact (test code = Present 3432) Platelet Conc (test code Decreased = 3438) VALENTE (test code = VALENTE) Revenue Cycle Specialist ID - [id number] ID - Maria Del Carmen Davidsonwest comments: Slide comments: Lab Interpretation (test Abnormal code = 43378-0) [facility] [place] W/PLT COUNT & AUTO [id number] 07:35:00 Test Item Value Reference Range Interpretation [...] CONCENTRATION Decreased (CELLAVISION)(BEAKER) (test code = 3438) Revenue Cycle Specialist ID - [id number] ID - Maria Del Carmen Quintana comments: Slide comments:Basic Metabolic [id number] 06:24:00 Test Item Value Reference Range Interpretation Comments Sodium (test code = 140 meq/L 118-064 6192-2) Potassium (test code 3.4 meq/L 3.5-5.1 L = 2823-3) Chloride (test code = 105 meq/L 98-107 2075-0) CO2 (test code = 25 meq/L 22-29 2028-9) BUN (test code = 31 mg/dL 7-21 H 3094-0) Creatinine (test code 2.35 mg/dL 0.57-1.25 H = 2160-0) Glucose (test code = 108 mg/dL 70-105 H 2345-7) Calcium (test code = 8.7 mg/dL 8.4-10.2 89170-6) EGFR (test code = 21 mL/min/1.73 [place] [address]-9) NOT ACCURATE CREATININE CLEARANCE IN PREDICTING GLOMERULAR FILTRATION RATE . ESTIMATED GFR I S NOT APPLICABLE FOR DIALYSIS PATIENTS. VALENTE (test code = VALENTE) Revenue Cycle Specialist ID - PIAYA LSpecimen moderately icteric Lab Interpretation Abnormal (test code = 00364-1) [facility] METABOLIC [id number] 06:24:00 Test Item Value Reference Range Interpretation [...] S NOT APPLICABLE FOR DIALYSIS PATIEN TS. Revenue Cycle Specialist ID - MITCH RUTHERFORDranjeetimeyahaira moderately ictericHEPATIC FUNCTION [id number] 06:23:00 Test Item Value Reference Range Interpretation [...] (test code = 13 U/L 6-55 347) Revenue Cycle Specialist ID - MITCH Sofyimen moderately [id number] 06:22:00 Test Item Value Reference Range Interpretation Comments MAGNESIUM (BEAKER) (test code = 1.8 mg/dL 1.6-2.6 627) Revenue Cycle Specialist ID - MITCH LPROTHROMBIN TIME/[id number] 04:22:00 Test Item Value Reference Range Interpretation [...] = No growth in 5 days 6463-4) [facility] HospitalBLOOD [id number] 23:00:00 Test Item Value Reference Range Interpretation Comments CULTURE (BEAKER) (test No growth in 5 days code = 1095) BLOOD [id number] 23:00:00 Test Item Value Reference Range Interpretation Comments CULTURE (BEAKER) (test No growth in 5 days code = 1095) DLCO (single breath diffusion)2020-01-24 10:41:00Epifanio Giles, CIVIL ENGINEERING PROFESSIONAL, APPLICATION SUPPORT ENGINEER 01/24/2020 10:52 [facility] PFT CHARTING REPORT Infection Control/Hand Hygiene procedures followed throughout the encounter with patient: YesPatient Identification Method: Patient name verified on armband, and Medical record on armband, Is the order complete?: Yes Account ID#: [id number] Name: Cici Calderon Birthdate: 1955 Age: 64 [...] and patient released from the lab without adverseoutcome.[facility] HospitalPulmonary Funct Lab [id number] 10:41:00Epifanio Giles RRT, MARGO 01/24/2020 10:52 [facility] PFT CHARTING REPORT Infection Control/Hand Hygiene procedures followed throughout the encounter with patient: YesPatient Identification Method: Patient name verified on armband, and Medical record on armband, Is the order complete?: Yes Account ID#: [id number] Name: Cici Calderon Birthdate: 1955 Age: 64 [...] and patient released from the lab without adverseoutcome.[facility] HospitalLung [id number] 10:41:00Epifanio Giles RRT, APPLICATION SUPPORT ENGINEER 01/24/2020 10:52 [facility] PFT CHARTING REPORT Infection Control/Hand Hyg iene procedures followed throughout the encounter with patient: YesPatient Identification Method: Patient name verified on armband, and Medical record on armband, Is the order complete?: Yes Account ID#: [id number] Name: Cici Calderon Birthdate: 1955 Age: 64 [...] and patient released from the lab without adverseoutcome.[facility]6 MINUTE WALK(FOR LUNG TRANSPLANT ONLY)2020-01-24 10:20:00Janina Meehan, JUVENAL, APPLICATION SUPPORT ENGINEER 01/24/2020 2:39 [facility] PFT CHARTING REPORT Infection Control/Hand Hygiene procedures followed throughout the encounter with patient: YesPatient Identification Method: Patient name verified on armband, and Medical record on armband, Is the order complete?: Account ID#: [id number] Name: Cici Calderon Birthdate: 1 09/08/1954 Age: [...] patient released from the lab without adverse outcome.[facility] HospitalU/S, [id number] 09:43:00 Referring: Dr. Rowdy Christie to be ordered:->Body Fluid Culture (w/Gram Stain, C\\T\\S)Labs marko ordered:->Cell CountReason for exam:->Acute Kidney Injury - rule out SBP - can remove volume of up to 4-5 L (given ANDERS)Should this be performed at the bedside?->YesFINAL REPORT Ultrasound guided paracentesis Clinical History: Ascites. Sedation: None. Relationship Banker: Christine Ward PA-C Supervising Physician: Natan Chisholm MD Crystal Machining Coordinator: None. Estimated Blood Loss: < 1 mL. [...] anesthesia was achieved with lidocaine, a 5 Egyptian one-step catheter was advanced into theperitoneal cavity under ultrasound guidance. After completion of drainage, the catheter was removed.There was no evidence of complication. Impression:Successful ultrasound guided paracentesis. Signed:Natan Chisholm Verified Date/Time: 01/24/2020 09:43:05 Reading Location: [address] Ultrasound Reading Room US [id number] 09:43:00Interface, External Ris In - 01/24/2020 9:45 AM CDTFINAL REPORT Ultrasound guided paracentesis Clinical History: Ascites. Sedation: None. Relationship Banker: Christine Ward PA-C Supervising Physician: Natan Chisholm MD Crystal Machining Coordinator: None. Estimated Blood Loss: < 1 mL. [...] anesthesia was achieved with lidocaine, a 5 Egyptian one-step catheter was advanced into the peritoneal cavity under ultrasound guidance. After completion of drainage, the catheter was removed. There was no evidence of complication. Impression:Successful ultrasound guided paracentesis. Signed: Natan Chisholm Verified Date/Time: 12/27 09:43:05 Reading Location: [facility] B1 P006J Ultrasound Reading Room [facility] HospitalBASI METABOLIC [id number] 06:18:00 Test Item Value Reference Range Interpretation [...] S NOT APPLICABLE FOR DIALYSIS PATIEN TS. Revenue Cycle Specialist ID - MITCH LSpecimen moderately [id number] 05:38:00 Test Item Value Reference Range Interpretation Comments PHOSPHORUS (BEAKER) (test code = 2.8 mg/dL 2.3-4.7 604) Revenue Cycle Specialist ID - MITCH [id number] 05:38:00 Test Item Value Reference Range Interpretation Comments MAGNESIUM (BEAKER) (test code = 1.8 mg/dL 1.6-2.6 627) Revenue Cycle Specialist ID - MITCH LHEPATIC FUNCTION [id number] 05:38:00 Test Item Value Reference Range Interpretation [...] (test code = 11 U/L 6-55 347) Revenue Cycle Specialist ID - MITCH Goetzimeyahaira moderately ictericCALCIUM, [id number] 04:56:00 Test Item Value Reference Range Interpretation Comments CALCIUM IONIZED (BEAKER) (test 1.09 mmol/L 1.12-1.27 L code = 698) PH, BLOOD (BEAKER) (test code = 7.43 1810) PROTHROMBIN TIME/[id number] 04:48:00 Test Item Value Reference Range Interpretation [...] mechanical heart valves.CBC W/PLT COUNT & AUTO [id number] 04:36:00 Test Item Value Reference Range Interpretation [...] (BEAKER) (test code = 2801) Prepare Leuko-Red [id number] 23:54:00 Test Item Value Reference Range Interpretation Comments CROSSMATCH (test code = 2264) COMPATIBLE Unit ABO (test code = A Pos 3174926) UNIT NUMBER (test code = [id number] 934-0) Status (test code = 8032455) TX_TIMEINCHART Blood Bank Product (test code RED BLOOD CELLS = 2263) PRODUCT CODE (test code = X8625L76 933-2) [facility] HospitalRubeola antibody [id number] 18:06:00 Test Item Value Reference Range Interpretation Comments Rubeola Ab, 235 AU/mL REFERENCE RANGE : Igg (test code <13.50 AU/mL = 32295-5) AU/mL Interpretation ==== <13.50 Negative 13.50-16.49 Equivocal >16.49 Positive A posi tive result indicate s that the patient hasantibody to measles virus. It does notdifferentiat e between an acti ve or past infection. The clinical diagno sis must be interpr eted inconjunction w ith clinical signs and symptoms ofthe patient. For additional information, pl ease refer tohttp://educat ion.[facility] stDiagnostics.c om/faq/ CVO922(This rosa k is being provided for informational/e ducatio nal purposes on ly.) VALENTE (test code Performing Lab = VALENTE) *[employer] [facility] [address] [place] [address] Sudhakar Hargrove MD [facility] HospitalMitochondria M2 Antibody (IgG)2020-01-23 13:50:00 Test Item Value Reference Range Interpretation Comments Mitochondria M2 Ab <20.0 See Note: U Reference (test code = Range:NEGATIVE: ) < OR = 20.0EQUIVOCAL: 20.1-24.9POSITI V E: > OR = 25.0 VALENTE (test code = Performing Lab VALENTE) [employer] [facility] [address] [place] [address] Mark Encarnacion MD, PhD, AMINA [facility] HospitalMumps antibody, [id number] 13:38:00 Test Item Value Reference Range Interpretation [...] (test Performing Lab code = VALENTE) *[employer] [facility] [address] [place] [address] Sudhakar Hargrove MD [facility] [place] W/PLT COUNT & AUTO [id number] 12:26:00 Test Item Value Reference Range Interpretation [...] CONCENTRATION Decreased (CELLAVISION)(BEAKER) (test code = 3438) Revenue Cycle Specialist ID - JohnOperator ID - Charo Jordan comments: Slide comments: BASIC METABOLIC [id number] 07:18:00 Test Item Value Reference Range Interpretation [...] S NOT APPLICABLE FOR DIALYSIS PATIEN TS. Revenue Cycle Specialist ID - MIKEAYA LSpecimen moderately [id number] 07:17:00 Test Item Value Reference Range Interpretation Comments MAGNESIUM (BEAKER) 1.6 mg/dL 1.6-2.6 Specimen slightly (test code = 627) hemolyzed Revenue Cycle Specialist ID - MITCH [id number] 07:17:00 Test Item Value Reference Range Interpretation Comments PHOSPHORUS (BEAKER) 2.4 mg/dL 2.3-4.7 Specimen slightly (test code = 604) hemolyzed Revenue Cycle Specialist ID - MIKEAYA LHEPATIC FUNCTION [id number] 07:17:00 Test Item Value Reference Range Interpretation [...] Specimen slightly (test code = 347) hemolyzed Revenue Cycle Specialist ID - MITCH LSpecimen moderately ictericB-type Natriuretic Factor (BNP) 2020-01-23 06:55:00 Test Item Value Reference Range Interpretation Comments BNP (test code = 14948-0) 2179 pg/mL 0-100 H VALENTE (test code = VALENTE) Revenue Cycle Specialist ID Mercedes MEYER L Lab Interpretation (test Abnormal code = 99668-7) [facility] HospitalB-TYPE NATRIURETIC FACTOR (BNP)2020-01-23 06:55:00 Test Item Value Reference Range Interpretation Comments B-TYPE NATRIURETIC PEPTIDE 2179 pg/mL 0-100 H (BEAKER) (test code = 700) Revenue Cycle Specialist ID - MITCH LCALCIUM, [id number] 06:31:00 Test Item Value Reference Range Interpretation Comments CALCIUM IONIZED (BEAKER) (test 1.07 mmol/L 1.12-1.27 L code = 698) PH, BLOOD (BEAKER) (test code = 7.45 1810) PROTHROMBIN TIME/[id number] 06:00:00 Test Item Value Reference Range Interpretation [...] for patients wiht mechanical heart valves.Prepare Leuko-Red [id number] 23:54:00 Test Item Value Reference Range Interpretation Comments Unit ABO (test code = 9900168) O Pos UNIT NUMBER (test code = [id number] 934-0) Status (test code = 2548614) TX_TIMEINCHART Blood Bank Product (test code PLATELETS = 2263) PRODUCT CODE (test code = M6540Q11 933-2) [facility] [place] W/PLT COUNT & AUTO [id number] 10:35:00 Test Item Value Reference Range Interpretation [...] CONCENTRATION Decreased (CELLAVISION)(BEAKER) (test code = 3438) Revenue Cycle Specialist ID - [id number] ID - Lizett OverholtUser comments: Slide comments: [id number] 10:05:00 Test Item Value Reference Range Interpretation Comments Cortisol, Total (test code 1.6 ug/dL 3.7-19.4 L = 2755) VALENTE (test code = VALENTE) Revenue Cycle Specialist ID - PIAYA L Lab Interpretation (test Abnormal code = 23657-1) [facility] HospitalCORTISOL2020-06-27 10:05:00 Test Item Value Reference Range Interpretation Comments CORTISOL, TOTAL (BEAKER) (test code 1.6 ug/dL 3.7-19.4 L = 2755) Revenue Cycle Specialist ID - MITCH LDirect AHG (KRISTI)/Direct [id number] 07:49:00 Test Item Value Reference Range Interpretation Comments Direct AHG-IGG (test code = 1006-6) NEGATIVE Direct AHG-C3B, C3D (test code = NEGATVIE 1003-3) [facility] HospitalABORH, [id number] 07:37:00 Test Item Value Reference Range Interpretation Comments ABO Grouping (test code = 2588) A Rh Factor (test code = 2589) POS [facility] HospitalCALCIUM, [id number] 06:31:00 Test Item Value Reference Range Interpretation Comments CALCIUM IONIZED (BEAKER) (test 1.10 mmol/L 1.12-1.27 L code = 698) PH, BLOOD (BEAKER) (test code = 7.44 1810) BASIC METABOLIC [id number] 06:20:00 Test Item Value Reference Range Interpretation [...] S NOT APPLICABLE FOR DIALYSIS PATIEN TS. Revenue Cycle Specialist ID - MITCH LSpecimen moderately ftehsszOPZDOPGOF7477-08-73 06:12:00 Test Item Value Reference Range Interpretation Comments MAGNESIUM (BEAKER) (test code = 1.7 mg/dL 1.6-2.6 627) Revenue Cycle Specialist ID - MITCH LHEPATIC FUNCTION [id number] 06:12:00 Test Item Value Reference Range Interpretation [...] (test code = 10 U/L 6-55 347) Revenue Cycle Specialist ID - MITCH LSpecimen moderately ictericPROTHROMBIN TIME/[id number] 05:48:00 Test Item Value Reference Range Interpretation [...] is2.5-3.5 for patients wiht mechanical heart valves.Renin, [id number] 22:50:00 Test Item Value Reference Range Interpretation Comments PRA,LC/MS/MS 1.51 ng/mL/h 0.25-5.82 This test was developed (test code = and its analyti steven 4243422) performance characteristics havebeen determined by [facility] nidia Queen.It h as not been cleared or approved by FDA. This as say has been validatedp ursuant to the CLIA reg ulations and is used for clinical purposes. VALENTE (test Performing Lab code = VALENTE) [facility] [address] [place] [address] Mark Encarnacion MD, PhD, AMINA [facility] HospitalBody fluid cell count with [id number] 18:33:00 Test Item Value Reference Range Interpretation Comments Appearance (test code = 9335-1) Hazy Clear A Color (test code = 6824-7) Cele Colorless, Straw A RBCs (test code = 98267-2) 4000 <=1 /cu mm H Adjusted WBC Count (test code = 86 <=5 /cu mm H 85738-8) Lining Cells (test code = 1 <=1 /cu mm 18097-4) % Segs (test code = 05672-4) 7 % % Lymphs (test code = 70577-1) 83 % % Monos (test code = 42850-1) 10 % % Eos (test code = 13640-9) 0 % % Baso (test code = 39348-5) 0 % Container Body Fluid (test code Sterile Vial = 2873) Lab Interpretation (test code = Abnormal 99033-3) [facility] HospitalBODY FLUID CELL COUNT WITH [id number] 18:33:00 Test Item Value Reference Range Interpretation [...] = 2873) Peripheral Blood Smear - Hold [id number] 15:19:00 Test Item Value Reference Range Interpretation Comments Peripheral Smear Save (test code = saved 1815) [facility] HospitalPERIPHERAL BLOOD SMEAR - HOLD [id number] 15:19:00 Test Item Value Reference Range Interpretation Comments PERIPHERAL SMEAR SAVE (BEAKER) (test saved code = 1815) [id number] 14:41:00 Test Item Value Reference Interpretation Comments Range Aldosterone (test 22 ng/dL Adult Ref erence code = 0646402) Ranges for Aldosterone: Upright 8:00-10 :00 am < or = 28 ng/ dL Upright 4:00-6: 00 pm < or = 21 ng/ dL Supine 8:00-10 :00 am 3-16 ng/dL Th is test was developed a nd its analytical perf ormance characteristics havebeen determ ined by [facility] .It has not been cleare d or approved by FDA . This assay has been validatedpursua nt to the CLIA regula tions and is used for clinical purpos es. VALENTE (test code = Performing Lab VALENTE) EZ [employer] [facility] [address] [place] [address] Mark Encarnacion MD, PhD, AMINA [facility] HospitalT Spot [id number] 13:05:00 Test Item Value Reference Range Interpretation Comments T-Spot TB (test code = 47472-0) Negative Neg Ctrl Spot Count (test code = 0 10373-4) Panel A Spot (test code = 02947-5) 0 Panel B Spot (test code = 27189-3) [address] (test code = 0 49842-2) Scan Result (test code = 6122847) [facility] HospitalT SPOT [id number] 13:05:00 Test Item Value Reference Range Interpretation Comments T-SPOT TB (BEAKER) (test code = Negative 1683) NEG CONTROL SPOT COUNT (BEAKER) 0 (test code = 1684) PANEL A SPOT (BEAKER) (test code = 0 1685) PANEL B SPOT (BEAKER) (test code = 0 1686) POS CONTROL SPOT CT (BEAKER) (test 0 code = 1687) SCAN RESULT (test code = 1959813) BLOOD [id number] 13:00:00 Test Item Value Reference Range Interpretation Comments CULTURE (BEAKER) (test No growth in 5 days code = 1095) BLOOD [id number] 12:00:00 Test Item Value Reference Range Interpretation Comments CULTURE (BEAKER) (test No growth in 5 days code = 1095) [id number] 10:25:00 Test Item Value Reference Range Interpretation Comments CORTISOL, TOTAL (BEAKER) (test code 5.1 ug/dL 3.7-19.4 = 2755) Revenue Cycle Specialist ID - JUL CCOMPREHENSIVE METABOLIC [id number] 10:23:00 Test Item Value Reference Range Interpretation [...] S NOT APPLICABLE FOR DIALYSIS PATIEN TS. Revenue Cycle Specialist ID - TUAN CSpecimen moderately ictericVaricella zoster antibody, IgG 2020-01-21 10:15:00 Test Item Value Reference Range Interpretation Comments Varicella IgG (test 3.6 code = 01546-3) VALENTE (test code = VALENTE) VARICELLA ZOSTER RESULT INTERPRETATIONS: <=0.8 Al Nonreactive: Presumed non-immune to VZV 0.9-1.0 Al Equivocal >=1.1 Al Reactive: Presumed immune to VZV [facility] HospitalRubella antibody, [id number] 10:15:00 Test Item Value Reference Range Interpretation Comments Rubella IgG Quant (test 127.0 <8.0 IU/mL H code = 8014-3) VALENTE (test code = VALENTE) Rubella IgG Result Interpretation: </= 7.0 IU/mL Negative - Presumed non-immune 8.0 - 9.9 IU/mL Equivocal >= 10.0 IU/mL Positive - Presumed immune Lab Interpretation (test Abnormal code = 80196-4) [facility] HospitalRUBELLA ANTIBODY, [id number] 10:15:00 Test Item Value Reference Range Interpretation Comments RUBELLA IGG QUANTITATION (BEAKER) 127.0 IU/mL <8.0 H (test code = 572) Rubella IgG Result Interpretation: </= 7.0 IU/mL Negative - Presumed non- immune 8.0 - 9.9 IU/mL Equivocal >= 10.0 IU/mL Positive - Presumed immune VARICELLA ZOSTER ANTIBODY, [id number] 10:15:00 Test Item Value Reference Range Interpretation Comments VARICELLA ZOSTER IGG (AL) (BEAKER) 3.6 (test code = 3197) VARICELLA ZOSTER RESULT INTERPRETATIONS: <=0.8 Al Nonreactive: Presumed non-immune to VZV 0.9-1.0 Al Equivocal >=1.1 Al Reactive: Presumed immune to VZVReticulocyte [id number] 10:12:00 Test Item Value Reference Range Interpretation Comments % Retic (test code = 5.3 % 0.5-1.7 H 25775-7) VALENTE (test code = VALENTE) Revenue Cycle Specialist ID - [id number] Lab Interpretation (test Abnormal code = 60821-5) [facility] HospitalRETICULOCYTE [id number] 10:12:00 Test Item Value Reference Range Interpretation Comments RETICULOCYTE COUNT PCT (BEAKER) (test 5.3 % 0.5-1.7 H code = 575) Revenue Cycle Specialist ID - [id number] 10:06:00 Test Item Value Reference Range Interpretation Comments PHOSPHORUS (BEAKER) (test code = 3.1 mg/dL 2.3-4.7 604) Revenue Cycle Specialist ID - TUAN [id number] 10:06:00 Test Item Value Reference Range Interpretation Comments MAGNESIUM (BEAKER) (test code = 1.7 mg/dL 1.6-2.6 627) Revenue Cycle Specialist ID - TUAN CHEPATIC FUNCTION [id number] 10:06:00 Test Item Value Reference Range Interpretation [...] (test code = 12 U/L 6-55 347) Revenue Cycle Specialist ID - TUAN CSpecimen moderately ictericRAD, CHEST, [...] Walkereport Verified Date/Time: 01/21/2020 10:03:32 Reading Location: [facility] Radiology Reading Room XR chest 1 view portable / [id number] 10:03:00 Interface, External Ris In - 01/21/2020 [...] MDReport Verified Date/Time: 01/21/2020 10:03:32 Reading Location: [facility] Radiology Reading Room [facility] W/PLT COUNT & AUTO [id number] 09:59:00 Test Item Value Reference Range Interpretation [...] PERCENT (BEAKER) (test code = 2801) PROTHROMBIN TIME/[id number] 09:53:00 Test Item Value Reference Range Interpretation [...] Verified Date/Time: 01/21/2020 07:51:30 Reading Location: [facility] Diagnostic Imaging Reading Room [place] [address] MR abdomen without IV contrast 2020-01-21 07:51:00Interface, [...] Verified Date/Time: 01/21/2020 07:51:30 Reading Location: [facility] Diagnostic Imaging Reading Room - [place] [address] [facility] Type and screen, [id number] 22:06:00 Test Item Value Reference Range Interpretation Comments ABO/RH AUTOMATED (BEAKER) (test A POSITIVE code = 2260) Ab Scrn (test code = 890-4) NEGATIVE [facility] HospitalRAD, CHEST, 1 VIEW, NON [id number] 21:16:00 Referring: Dr. Rowdy Zhang for exam:->JVD [...] Additional findings: None. Signed: JR Terry, Alonso Green Verified Date/Time: 01/20/2020 21:16:28 Reading Location: [facility] C013T Transitional Reading Room Cryptococcal [id number] 11:36:00 Test Item Value Reference Range Interpretation Comments Cryptococcal Antigen, Serum Negative Negative, Interference (test code = 04302-1) Lab Interpretation (test code Normal = 70370-6) [facility] HospitalCRYPTOCOCCAL [id number] 11:36:00 Test Item Value Reference Range Interpretation Comments CRYPTOCOCCAL ANTIGEN, SERUM Negative Negative, Interference (BEAKER) (test code = 1828) CBC W/PLT COUNT & AUTO [id number] 09:56:00 Test Item Value Reference Range Interpretation [...] CONCENTRATION Decreased (CELLAVISION)(BEAKER) (test code = 3438) Revenue Cycle Specialist ID - [id number] ID - Lizett OverholtUser comments: Slide comments: COMPREHENSIVE METABOLIC [id number] 05:46:00 Test Item Value Reference Range Interpretation [...] S NOT APPLICABLE FOR DIALYSIS PATIEN TS. Revenue Cycle Specialist ID - PIDORIAN LSpecimen moderately [id number] 05:37:00 Test Item Value Reference Range Interpretation Comments PHOSPHORUS (BEAKER) (test code = 2.8 mg/dL 2.3-4.7 604) Revenue Cycle Specialist ID - MITCH [id number] 05:37:00 Test Item Value Reference Range Interpretation Comments MAGNESIUM (BEAKER) (test code = 1.9 mg/dL 1.6-2.6 627) Revenue Cycle Specialist ID - MITCH LHEPATIC FUNCTION [id number] 05:37:00 Test Item Value Reference Range Interpretation [...] (test code = 9 U/L 6-55 347) Revenue Cycle Specialist ID - MITCH LSpecimen moderately ictericPROTHROMBIN TIME/[id number] 04:53:00 Test Item Value Reference Range Interpretation [...] is2.5-3.5 for patients wiht mechanical heart valves.CALCIUM, [id number] 04:45:00 Test Item Value Reference Range Interpretation Comments CALCIUM IONIZED (BEAKER) (test 1.14 mmol/L 1.12-1.27 code = 698) PH, BLOOD (BEAKER) (test code = 7.36 1810) Sodium, random [id number] 00:37:00 Test Item Value Reference Range Interpretation Comments Sodium Urine (test <20 meq/L code = 2955-3) VALENTE (test code = Reference Range: No VALENTE) NormalsOperator ID - MITCH [facility] RANDOM [id number] 00:37:00 Test Item Value Reference Range Interpretation Comments SODIUM URINE (BEAKER) (test code = < meq/L 243) Reference Range: No NormalsOperator ID - MITCH LUrinalysis w/Microscopic 2020-01-20 00:30:00 Test Item Value Reference Range Interpretation Comments Color, UA (test code = Yellow 5778-6) Clarity, UA (test code = Hazy 5767-9) Specific Doss, UA (test 1.017 1.001-1.035 code = 5811-5) pH, UA (test code = 5.5 5.0-8.0 5803-2) Protein, UA (test code = 20 mg/dL Negative A 12051-5) Glucose, UA (test code = Negative Negative 365) Ketones, UA (test code = Negative Negative 2514-8) Bilirubin, UA (test code = Negative Negative 28473-1) Blood, UA (test code = Small Negative A 24260-5) Nitrite, UA (test code = Negative Negative 5802-4) Leukocytes, UA (test code Trace Negative A = 5799-2) Urobilinogen, UA (test 0.2 mg/dL 0.2-1 code = 33105-4) RBC, UA (test code = 1 /HPF 59044-3) WBC, UA (test code = 3 /HPF 5821-4) Bacteria, UA (test code = Rare 56171-2) Squam Epithel, UA (test 3 /HPF code = 08169-5) Hyaline Casts, UA (test 3 /LPF code = 65078-2) Specimen Source (test code = 2795) VALENTE (test code = VALENTE) Revenue Cycle Specialist ID - [auto]Revenue Cycle Specialist ID - tech Lab Interpretation (test Abnormal code = 86238-1) [facility] + Reflex to Culture 2020-01-20 00:30:00 Test Item Value Reference Range Interpretation Comments Color, UA (test code = 5778-6) Yellow Clarity, UA (test code = 5767-9) Hazy Specific Doss, UA (test code = 1.017 1.001-1.035 5811-5) pH, UA (test code = 5803-2) 5.5 5.0-8.0 Protein, UA (test code = 91577-8) 20 mg/dL Negative A Glucose, UA (test code = 365) Negative Negative Ketones, UA (test code = 2514-8) Negative Negative Bilirubin, UA (test code = 44372-9) Negative Negative Blood, UA (test code = 38125-2) Small Negative A Nitrite, UA (test code = 5802-4) Negative Negative Leukocytes, UA (test code = 5799-2) Trace Negative A Urobilinogen, UA (test code = 0.2 mg/dL 0.2-1 68156-3) RBC, UA (test code = 51117-9) 1 /HPF WBC, UA (test code = 5821-4) 3 /HPF Bacteria, UA (test code = 28292-2) Rare Squam Epithel, UA (test code = 3 /HPF 88647-0) Hyaline Casts, UA (test code = 3 /LPF 91708-8) Specimen Source (test code = 2795) Lab Interpretation (test code = Abnormal 70141-2) [facility] REFLEX URINE [id number] 00:30:00 Test Item Value Reference Range Interpretation [...] SOURCE(BEAKER) (test code = 2795) URINALYSIS W/ [id number] 00:30:00 Test Item Value Reference Range Interpretation [...] /LPF 514) SOURCE(BEAKER) (test code = 2795) Revenue Cycle Specialist ID - [auto]Revenue Cycle Specialist ID - techActin (Smooth Muscle) Antibody, IgG [...] of patients withautoimmune hepatitis (AIH) type 1, zhbqojwdiisjr34 % of patients with autoimmune cholangitis,lis sherine mately 30% of patients with primary biliarycirrhosi s, and approximate ly 2% of healthy people.High beatriz ues are closely correlated with AIH type 1. VALENTE (test code = Performing Lab AVLENTE) [employer] [facility] [address] [place] [address] Mark Encarnacion MD, PhD, AMINA Lab Interpretation Abnormal (test code = 99483-9) [facility]inc2020-[facility] 20:06:00 Test Item Value Reference Interpretation Comments Range Zinc (test code = 39 60- 130 mcg/dL L This te st was ) developed and i ts analytical performance characteristics have been determined by [employer] . It has not been cleared or appr jean-claude by theA. This assay has been validated pursu ant to the CLIA regulations and is used for clinic al purposes. VALENTE (test code = Performing Lab VALENTE) *[employer] [facility], [address] [place] [address] Jorje Jauregui MD, PhD Lab Interpretation Abnormal (test code = 24017-6) [facility] HospitalTissue Eofa3846-14-05 16:12:00 Test Item Value Reference Range Interpretation Comments Case Report (test code Surgical Pathology = 104) Report Case: [id number] Authorizing Provider: Sylvie George MD Collected: 01/17/2020 08:15 AM Ordering Location: [address] Received: 01/17/2020 01:50 PM Service Pathologist: Humaira Mendez MD Specimen: Duodenum, biopsy ADDENDUM (test code = x9tqnRLgLLBdgFPjHxWlGN 3381) ZoTQEea1bkHWHrcIRvIuXd MzNcZnRuYmpcdWMxXGRlZm Lgm4cev112hTLol5hiJEGt HbO3uFMjGSBzsVShO498TA EyMPocw3cil8JqILAvqDZh e2O6GSVMkrqwzRn4dNfiF4 8jg8J4NajwJ7rfJIZuTEOe D6GrIX8pJDIoRhl8CCU3CN B5PBWdJHQdK3YnXK9lKQIj iQFoFIg5h6qfzChnIOMzQS W6z7wrVFubysStCI2hvz9k cCb8n0udcyHoKLDaNHYfvE HSAOExK5PcwMvrQn1abRh6 oLsgSuxdQCR8Skv4FD9zxh 73zni7hHepFRHqlnjnOfI0 JTihQPMreyivPPr5PAgcHG QpiPJ1KIAxaNCnT3YtBXVd HG5ixkg4SCN1QXqnTXFfBa F3BVDwjTLcVNUslQfdZFnz z356QSH2BnLxOD9rX0Lcj8 M8kN9zjLDkAELilHTkAkVf DWBaub7yyISlCFhuv1KjIT E8whG2zSCnrFWqOSLnIP34 Nrvgh7MgOledDPC2XHKvkv Azv8Cfb4lkLtZiraJvL4lf I5LfUUTyQXHlJILeApEnuc Apl3Kuq3QdtOGjvVm6k2rk WQVsGPXmmJfol6pwMQQ4XC RvD6V9xCQgp5wqYSlhKRVh oOQ8jfL4CWPbbEAiC0JutU 6bSKLbSK8igmv3s4oqLVP1 FNmkZRZaUhZ5vvH9DBZovX AiKPHggYvlOEawu296AQA5 OqGePJQea7OhF6MiaSeuR7 9jhWtoX79gTDYbhPwosX1u xRdpzY6hSkEoDwUsMKkxFP JkXHBsYWluXGYxXGZzMjBc bGFuZzEwMzNcaGljaFxmMV vdEaXsKZTvHGsmH0nnJzCa SvTkTJDSRXgLWKTVNB7FXN 8ABSyMWWnRX8NDCUIFStUW RVBPUlQgVEhFIEZJTkRJTk dTIElOIFRIRSBERUVQRVIg DRQUJKeVAL0XVWULBTXJGC 4IH4dsSR0UMJyFTxLhNMaP EFMCZdRDHUVITLpPC6XPDq pccGFyXHFsXHBsYWluXGYw REThAwSfxSdwkF0iExHrMc GmVFliUT1kDVZaW0qzcRHe QKXyTVHqW4wuLuZwqL1dtG xmMVxmczIwXHBhciAgRFVP OWPCQA7pEVPZXL7YK47XDO MgQklPUFNZOlxwYXIgICAt XTWXKTYXKVAbVmWID9JHUq CRVnFCJNEnZWKRHX0ZNFTK W7JCPXJaEIJXH8vWY3VIDn JbK6DxZW7OLGBZBCBRL8NI Mx6UVRQYPOvnAPYcVKAtFS 8UREFGVUDDCcTZHG0WOSOI TElBQyBESVNFQVNFIFNFRU 5ccGFyICAgLSBOTyBHUkFO VUxPTUFTLCBEWVNQTEFTSU KcI1UcAUJQDYqQFE7ZDMDI RUVOXHBhcn0= DIAGNOSIS (test code = a3tanPYzIYNoc5rjQBEdzE 3220) FuZzEwMzNcZnRuYmpcdWMx YWgyxvRhZZvks3HcR3YxSm AwMFxhbnNpXGRlZmxhbmcx XZGcTMH8dtSxADOgNZfcPM NgKCosHj8odRTqbSdyPuJh KWDyo5cpwyJOyxnzxDt0u3 hxAGJnFbV4vAOkUNegT4wo ujAtqKScQBAzUPk8wG58QC FutN5saVEwOPqqlbZrKfE5 CSjeLENsVgT6XUKbmXPuYW CgB1fhBPQjVTvgAXMfRXov vKHuGJK9nRtga0W6tTTqfB XpaRdqIyYjRsReQBTMy8Go AZm1dTwmB8AsIMRtFzA0hQ QgUGFyYWdyYXBoIEZvbnQ7 rP50EWrqjtU8qGNdk1Ybp7 7wr360wP8qpSAcUPW2FZOc EMMjfWPmZYAqDOS4WTNjcP AeT4e2AbJvmRTbD6I8HmRa oPHsB5J1YaQdpQKiH2E4Ap GwoKXbLXJesFLnAs7dtUEb oKOgig1gjm92TGU2y1JijW jjRCQ5ADB6IbFnCt6gsPSs ZMQhPC5iVlQzwEYgVYHkla 61bHuxDVyidbHhwM5tEtIv LZMgpLCcTFUfWQ2clHObJU UejZ9ntqadJGDbQwPlgotc PFWrjZaffwHdYd2stCknAN Z6QQxoW7fquY9nPtB6IMcj Q5ysaB8pGOz1DPmppVI7FF IvjA8zYY1fnrreb4gfBoIm HT3kheddm7nrTpMfHJ4vyu y6p6ywSwHfVE4hzwkln5jk NzIwXGhlYWRlcnkwXGZvb3 SgfvvgCXOwn4IvT5MebKzy B83hnWclZ89oRMXavXbfvW 1odSrgjS1jHxLsBqJoUQuh bFxwbGFpblxmMVxmczIwXG twdjokRCXlNRazE5alDtRa EEDynUgbYWfbr8KcDHWiIN VvVrJvSGIBKVGWQA9cSUED IO1AS39YQOQcIhaFRIDUHk aoXGKgSPJrO4EBXEITMWSO RSpdQaIRS49TUhIKOL4FIU DJLDbBCJKQX1TAUT4HK38G IZJKETIAXQyQQ7QYVEKsXn 4CTF8GYAZtHVPZHRVPOQBZ CXhpIJVciGGcBXEarl50OD T3ThXay9J0MEE9HXLcHYOz q0htCERevKEzGrApOwNnZq DjXphzkLMqKCHcCbFyb2vh e480hTHjm4iaLJKuHjD4pU HwCVPesRQcR007KFSoDIht e5rtn7RdNYSqlJXhv5X6HV MZxskwnBp5aNjiF68ui6N0 HhuwX2ilJYSnFLBjG5GmKV 9bFYRkNtr3VMZ1GEC9ZFMh VRWnC8EfVS4vBYMtxOOsAU k7b1cyoDrgKWDdOWL2f9vw BCiowvTsKH4hmy7ygNm4s9 xjczEgRGVmYXVsdCBQYXJh L2YywGzpNt6doQf1uKsuMk ojIQQ3Ucq4HQ0gla96heu4 eQroWTFvvrisIbJ4XUagFX IkzzsqEQb8OYhgLPKeoZS8 AHUqzEXcS4EvRDLcPV5fea c2KKE1PNhpEEZsBcQ9VLOv hKWjVKKelEdpYEfxx528UU B9CgTjVN3kP1Dqg1T9vH4u aXRcZGVmdGFiNzIwXGZvcm 8rbEOkQAmju7IoMZN9xuC5 qFMigRVoQXXaAfQ2LJwsMB 9hcx60ZZUoEXK0xp9nlDGl rZryhvIldGOcBJqgK9AwCF Wca842DTKaL8WeTLMrq5Z3 acTxWmZgBZBqbJR4vfV0ES WnNE7cljlys3roFPmgZBtz UFFylxL3vcE9BESrhWQbQ8 YlaQ1rWDLyNH7hxnpmp6lu LFW4EKyoCLSpEOK2SuWtUP Qbd3Uanbg4PfEjv6AlvHWv YNumS30vx953EIEtgfEbR4 xwbGFpblxwbGFpblxmMFxm ciA5GMHmDGllbddcQPPtCE upT2qaWuEfOIOcaOoxIMcr r3YmVZOdARQxEuKczZDeHV ByAha3UUNjbAJrANTkQbNl G6ystyozWiPBKKQtp7qxE6 vbuMGXqBItB6BiAKmrstRt URgxAYftSDK0DJD8Mx69Cp X5FWMsdr03 CPT Code(s) (test code o0tftMGfDEEjiUOmVyQrTJ = 3357) NdGMQqh6cgMHRkrDYiSqHa MzNcZnRuYmpcdWMxXGRlZm Qkl2mmy138aSPtn5paZFEi XaK3aDAfZVJhkLAzB573w6 qzb5dkuhKiwQJ5EPVpBYV9 MQbymrReoaH6UQnslYIiHb C8CLtxsaGbYNimicEhdfNa Ezx6ULXpA282JUG9zEepp1 spPTJ0OKHdIVZfJaEgNh9t mYDnW241KZMeVPKTRZXqrI z1RRYkhfWufkPeaTOCh860 M051p1kaVNVmtzFpsOxTna htm5dqT172ZPHhrHKpqbVj PnDtVCDzlGMvvEC0XAZdGP 9wgnirQzVuDD4maqabTtFx GW2ibdw2IsYnEI9cjppqNu CwSLrkAUJdajveBYIez0Iw xamlBH4zR4Mot3R0pK3zzW VxKOOggGXmJqIwKMNhho4c hZTdYAszh5SvTLQ5kyW4eD YwqODhONYbDY28Qdgli9Ka ZiuhUNY5TDFlciEhh5Xjs7 nhRlLkxhCoL3rzA0CtVUHv MRIgUUXnZuWlhbKia6Jqx2 NrqBSvoQo6f1kfRYWvAOBy lUscs3lpDAC6EBItF3D7nJ Sre8tcTDeqHJSibXY2afew IZxzVBZfjgG7awgfDTtqOC BbiLI1uzluBOzaXSCyKfG2 usqdKSdsDCKlPVA8FVdoc3 20YLA1JKrmUwkiBCecFXQc bmNvbnRccGduZGVjXHBsYW luXHBsYWluXGYwXGZzMjRc xTgxdGicjX7iWlEjOgXaZG nzDK9yNLDiK3wmiCUxXJUs IZCxG5hkVjVrqU1dtTeuDT yoodBeZNy9UbS5MOMqlv6= CLINICAL HISTORY (test f2thwUTjGQOiqMQzHwRzDJ code = 3351) BjXYXfv2bfHGLvgSIwTqSt MzNcZnRuYmpcdWMxXGRlZm Dvy0pko509lPLjn1biUJTk JeI8iWKcPSJomJZhB814QK XwCSkjg8cdz8QvPFVjvDMa z3J8BJALyouipWc0bCjxT6 3qg6C5YwntA7keUNMlHTei LBPcURizeSFjFVD3DWZhLI P4THkesgDkktT0VDdymPDy YzX0KEk6f4xbrYlmOGPyBB P7x6ewKHxorxMrBV5fnf9u sMk1b8wpweUsWLTuNPUfdR QPMVLsB4QtjZifKi1euHj6 vOxfZksrEXH9Oql2ZT8lbv 84xws0eEpbWIKcrrgzVoT2 KYdiOWHruvjvQFi7KDgiNA JnbDcyMFxtYXJncjcyMFxt YXJndDcyMFxtYXJnYjcyMF lsKDEcGPK5SNrlt660NII9 CBbov0pwx3aalMFoIom4DB EkEwZuXjpaHElra8Oti3uk AIHnil3gHMZ6lTUhiWrcs6 H8jIZuLKRkfJYxudTfTRNe DsR5CZnaPD1noc18MLXwSO C3tt0wjLZrcPnuntArbCSp JGwnB9PeGZIgp478WFDcR2 CqPFYhe2S3arFbMrLmBECi aXS5xyS0WDPaCFs8aSEzha O6mvBnuYHhU4pihN65SzGl tIMsH6LxzT07HxHnqIHdS0 DcxT02KeGzkFRvK3BklH37 UbNypRHeWQIzcMPjHc1jzX BiqAEqk8BsjCPaWZqfJ07s q791ETLmguOeV3idwAWjjq xwbGFpblxmMFxmczIwXHFs XHBsYWluXGYwXGZzMjBccG anxY3fLhBdZcAsYQHVod2h HEY9ugG7YUMmsJUkZNJqHT 3pR10stSrsAimqsSF6IOBy RJIqf3egiw1oR37scUSrfZ NnUYIjYALmsbQhmA8waE1b HNPsNQsyv5OynmenGT5nbC lhXHBhcn0= SPECIMEN SOURCE (test m8donPJzYMXprOMjEaJiWO code = 3377) EjOEMdv4nmYMAjhEKbDvIi MzNcZnRuYmpcdWMxXGRlZm Lml4nrv306mOJuo9ueSVUk VaG6tIIyZAPchBVcZ833c6 tnb6ufdqLvzPA3NVPlKSV2 LFcadyKkwgV0NVdvqUSrUv O0UHygqeUgRBsgbhVeegWl Crc3TIUxZ863TSY1nPjtx3 wqTWV2QREhRXKiTePhJl7f zCAbT738SHMgIZDOLGXgoE b0OZMgndIoldVieHCWk916 G640m9knJZCnjmOuwTcWua gjl3mlI410PGPgjUJcanMh CgGdCQMzlYIzdRD0CSYsPC 8axcgaIsGgXS4xpponKwFx IM8vjji2HmBlWE6fbuwhRk ZfRBnmSWAoluzoEMFfe2Bf sgxeBV8cL9Wmv8J1vR5clX McZTRvlEIqDtUeGBLjni9v dUBiRSyjz8IsQMF1rtQ2xV NwcLVrBCEeFH85Macws2Af TykqPVW6YFAwcgNti3Ruk8 jlJmKxnhHpV0mmS1CgPZId GNLnDUQdIdTjtcVjx3Mot1 CtwURdtKr8w2qrUJYcHQGh rRctc7rxNBV3WWTiI2O8cK Jop7mmTTnrPRXeuUV1givj TRyuJIErhjW1hlspJAhxUT LmaWA2yolfHPsxKQWpUzH6 rcsxEKeyIOIlGQK2OFpik3 90DII8OAsgGfozNPwvGBRd bmNvbnRccGduZGVjXHBsYW luXHBsYWluXGYwXGZzMjRc aFjpuUzgyR8pJnBvWuKbOT agEG2gDAGwD5yniJSrHREa XLBuI2sxGfVsbC0wzKecYA lwvjJbXAUmNSH2l8PediTs FlQyjU4bk8szvITxkR== GROSS DESCRIPTION (test a2xgbGYwAUTdeFGaZtTtTF code = 3366) RmSWThw5ulPQImeTAcTvWx MzNcZnRuYmpcdWMxXGRlZm Rwk2gor614wBEmi0csEMRs OrW3jBOgRNAjvKSfF049ZP NrEBdtt5lsl3QkKFKpbVKo z0Z7UNCEfhqakIl0yGwqX8 8mg3W7EavrO5pfCDWkMQcp SURsUNsrnWSgJSS2FVZlTB W7OIcvtkOuunH3MZozgIPu AoH3BTk5a2zfhYsbOECzXD M2u3trUYsqmcSeXB5jqw9l qXh7d2raaiNuONRlJKWkvT QSAGFiX1IekXazEe0sgBk9 dBhbTzscISL8Egt6NR1ave 18ffy4eTqiVKFbrptaCyO7 GOiwSTRmyqpiUXn4MNduDD JnbDcyMFxtYXJncjcyMFxt YXJndDcyMFxtYXJnYjcyMF ciIEKuLIF8JLlqj289EHA2 AEnyi3ioj7qucDJrYvo0IM PrZmRyDwtdRRvgo8Uom4iq GAOatp4yJDM1uUDigTzpa7 G2bOBpVDOufBAlweLyKFEa HpG5JWzfVM0mil12ZGPiCV C1pa0pzINtrBdxlzPjgLLs FNucQ0JoJPAtr031VNMxY4 QmYFKos3S0zvDyBkMkESIp eAQ5fzQ0LTNcPHy7pKYmkr F0ucNtkTExS3iqrQ46WuEi mZJmN8WrkX18VoUxbZEbR5 SrtY99QrTquOLnV6JvlS17 PxFieWVhSPCtsJObGt4mmX EtpHJvk4HzfZCbOPzjB54p o554BEZelrIhK6djyDBifs xwbGFpblxmMFxmczIwXHFs XHBsYWluXGYwXGZzMjBccG mmcZ3uJmLtUxFdSUDRAlUX tVAbw9UvO9yxSD3raXQqjg JrWXq6LPZyuN2jEh5hzGLq fX3yZDOaZZueHZBlQMWeYf QndHFaIKsxDBU3yPJdSHCf YKRmPDHwRM22L9UetjOsJH qwJELnWNAgeO4zQI35oYTw ciBhbmQgIlxwbGFpblxmMF sxrzPmMHO4j3XljnCtAuFr eyMbL87kr9idkAUzp8Yyb5 0hQAMbrn7koA0dVSovhDNi hxzcIRiksmShXF28J80pAT fnY198FMPaBQzqgPCvsklb MFxmczIwICBwaWVjZXMgb2 TzwHtaq3FcRG5uDIT5qixx ZyAwLjMgeCAwLjIgeCAwLj AvC49jXUpwvCDuenccGHdi awQuEMMaPNUwcQKinL0qmj JqerHbdOJbyET7XLFaFY62 lCEewVzcVs6wfQ19zO3nOA BbjDAoOGMkb51ujM7pRVVl RCGmTFF3QZAkeYrjrP3oNs AyEeOoLAKAUI2oSWaTP2Vq XHBhcn0= MICROSCOPIC DESCRIPTION o9sgcWYuCUAbsLWwKdPkNR (test code = 3371) QqIWRtu9fyEVYkaWJfDoAp MzNcZnRuYmpcdWMxXGRlZm Cln3uep177kBLrf1hbXGOx BfH6oJBqVUKrwAAbF118e8 ynn7avhqEnqYR3ANJiMAM6 RVumtlLnliN5ZAxlpVVzFf N8CKqlftLuXUxksdTvkjUt Scq5PZBwJ401NDK7eDtne4 fxIMX1CSXaLCOzRkVePx6i iZFtM581LSRmZQLDWGDozE c9NQQlioDxswMnjCWQv385 O233y6mlZBOntaEmsNqUwr eah9maU532AMLueSWjohMa AaTvJVWdpQIseUJ9RQFlWQ 7ghikuBlPeSD9qumdpBrLr KM8bgux3IlWkSR5juxkaQr FdREyeWPJqwcvtLEMzt2Vj hqymTI5mK1Pel6U3bD0nfK EaOWUqtGInIcNlZOYzsz7k bVRdOGxps6IeXWF5rnU5eZ WrtEHoBTYsRN92Ibxgk6Ve RuzwLDQ0YNWyicWgb7Jpd7 ktQuQhjmUvN7atX5IwSNDb ZCTpKYKePnNzfaBei7Vdk9 NsxGKnjYv8i6nhMJUbMZYd jXjaj5teJNP1ZZTwN8H0lV Xmk4pvVOpnDOArpPB4hspt WIfdPSGjcoF1fegoIUaoGS CtbMA3mbrwQSotCKSvRhU2 bnskZTipARNtCYX9ZChod8 35UPV2ZWnpTqtpAJstUGUb bmNvbnRccGduZGVjXHBsYW luXHBsYWluXGYwXGZzMjRc dFrouCgexK7iUkBtVwPkWJ kpHV2jOYSrI3fnoAWxYKVe IDHxO0nnWaUrnF7zlCcaID behnPcNVFUCqRRTh4CRFld YXJ9 [facility] [id number] 16:12:00Surgical Pathology Report Case: [id number] Authorizing Provider: Sylvie George MD Collected: 01/17/2020 08:15 AM Ordering Location: [address] Received: 01/17/2020 01:50 PM Service Pathologist: [...] FOVEOLAR METAPLASIA Signing Pathologist Direct Phone Line: [phone] signed by Humaira Mendez MD on 01/18/2020 at 3:50 [id number]: upper endoscopy, biopsy and colonoscopy Pre and postop diagnosis: anemiaA. Duodenum; biopsyA. The specimen is received in formalin labeled with the patient's name, accession number and "duodenum" and consists of one garduno-pink mucosal-covered pieces of tissue measuring 0.3 x 0.2 x 0.1cm. The specimen is submitted entirely following filtration in a cassette A1. HS/plPERFORMEDBlood gas, [id number] 16:03:00 Test Item Value Reference Range Interpretation [...] % Lab Interpretation (test code = Abnormal 58031-1) [facility], [id number] 16:03:00 Test Item Value Reference Range Interpretation [...] (BEAKER) (test code = 1819) 28.0 % Xopykwswowlws6050-20-48 15:05:00 Test Item Value Reference Range Interpretation Comments Ceruloplasmin (test code 21 mg/dL 18-53 = 5757273) VALENTE (test code = VALENTE) Performing Lab *[facility] [address] [place], [address] [place] [address] Jorje Jauregui MD, PhD [facility] HospitalCarbohydrate antigen 19-9 (CA 19-9)2020-01-19 12:51:00 Test Item Value Reference Range Interpretation Comments CA 19-9 32 U/mL <34 This test was (test code = performed using the 99605-8) Siemens Chemiluminescen t method.Values o btained from different assay methods cannot be used interchangeably .CA19-9 levels, regardl ess of value, should n ot be interpreted as absoluteevidenc e of the presence or abs ence of disease. VALENTE (test Performing Lab code = VALENTE) [place] [address] Mark Encarnacion MD, PhD, AMINA [facility] HospitalPROTHROMBIN TIME/[id number] 11:28:00 Test Item Value Reference Range Interpretation [...] patients wiht mechanical heart valves.MM, U/S, BREAST, [id number] 09:52:00Referring: Dr. Rowdy Zhang for exam:->liver transplant [...] Jorge Brooks Verified Date/Time: 01/19/2020 09:52:28 Reading Location:[address] Mammo Reading Room US breast [id number] 09:52:00Interface, External Ris In - 01/19/2020 9:54 [...] with mammography is recommended. Signed: Jorge Brooks Verified Date/Time: 01/19/2020 09:52:28 Reading Location: [address] Mammo Reading Room [facility], WITHOUT [id number] 08:09:00Referring: Dr. Rowdy LopestAnesthesia:->NonePlease specify abdominal organs:->AdrenalFINAL [...] Verified Date/Time: 01/19/2020 08:09:04 Reading Location: [facility] Diagnostic Imaging Reading Room - [place] [address] [address] abdomen without IV contrast 2020-01-19 08:09:00Interface, [...] Verified Date/Time: 01/19/2020 08:09:04 Reading Location: [facility] Diagnostic Imaging Reading Room - [place] [address] Electronically signed by: JOHN CROCKER MD on 0 01/19/2020 08:09 [facility] HospitalCALCIUM, [id number] 07:59:00 Test Item Value Reference Range Interpretation Comments CALCIUM IONIZED (BEAKER) (test 1.10 mmol/L 1.12-1.27 L code = 698) PH, BLOOD (BEAKER) (test code = 7.33 5060) Treadmill tolerance(Non-Nuclear Treadmill)2020-01-19 07:03:57Interface, External Ris In [...] Shaq GARCIA MICHAEL(150) on 01/19/2020 7:03:55 [facility] HospitalCOMPREHENSIVE METABOLIC PANEL 2020-01-19 05:21:00 Test [...] S NOT APPLICABLE FOR DIALYSIS PATIEN TS. Revenue Cycle Specialist ID - LASpecimen moderately [id number] 05:04:00 Test Item Value Reference Range Interpretation Comments PHOSPHORUS (BEAKER) (test code = 3.3 mg/dL 2.3-4.7 604) Revenue [employer] Specialist ID - [id number] 05:04:00 Test Item Value Reference Range Interpretation Comments MAGNESIUM (BEAKER) (test code = 2.0 mg/dL 1.6-2.6 627) Revenue Cycle Specialist ID - LAHEPATIC FUNCTION [id number] 05:04:00 Test Item Value Reference Range Interpretation [...] (test code = 10 U/L 6-55 347) Revenue Cycle Specialist ID - LASpecimen moderately ictericB-TYPE NATRIURETIC FACTOR (BNP) 2020-01-19 04:59:00 Test Item Value Reference Range Interpretation Comments B-TYPE NATRIURETIC PEPTIDE 2455 pg/mL 0-100 H (BEAKER) (test code = 700) Revenue [employer] Specialist ID - EDWIN BCBC W/PLT COUNT & AUTO [id number] 04:46:00 Test Item Value Reference Range Interpretation [...] (BEAKER) (test code = 2801) U/S, RENAL, [id number] 01:26:00Referring: Dr. Rowdy Zhang for exam:->Re-examine L [...] Sneed MDReport Verified Date/Time: 01/19/202001:26:59 US renal [id number] 01:26:00Interface, External Ris In - 01/19/2020 1:29 [...] Maira Sneed MDReport Verified Date/Time: 01/19/2020 01:26:59 [facility] HospitalEosinophil [id number] 22:11:00 Test Item Value Reference Range Interpretation Comments Eosinophil Smear (test Rare EOS =less than No EOS seen A code = 84152-3) 5% WBCs seen are EOS Lab Interpretation (test Abnormal code = 78703-3) [facility] HospitalEOSINOPHIL SMEAR, [id number] 22:11:00 Test Item Value Reference Range Interpretation Comments EOSINOPHIL SMEAR, URINE Rare EOS =less than No EOS seen A (BEAKER) (test code = 5% WBCs seen are EOS 1851) SODIUM, RANDOM [id number] 22:04:00 Test Item Value Reference Range Interpretation Comments SODIUM URINE (BEAKER) (test code = < meq/L 243) Reference Range: No NormalsOperator ID - EDWIN BCreatinine, random urine 2020-01-18 22:02:00 Test Item Value Reference Range Interpretation Comments Creatinine, Ur 181.3 mg/dL (test code = 2161-8) VALENTE (test code = Reference Range: No VALENTE) NormalsOperator ID - EDWIN B [facility] HospitalProtein, random [id number] 22:02:00 Test Item Value Reference Range Interpretation Comments Protein, Urine (test code 45 mg/dL 0-14 H = 2888-6) VALENTE (test code = VALENTE) Revenue [employer] Specialist ID - EDWIN B Lab Interpretation (test Abnormal code = 07407-8) [facility] HospitalCREATININE, RANDOM [id number] 22:02:00 Test Item Value Reference Range Interpretation Comments CREATININE URINE (BEAKER) (test 181.3 mg/dL code = 375) Reference Range: No NormalsOperator ID - EDWIN BPROTEIN, RANDOM [id number] 22:02:00 Test Item Value Reference Range Interpretation Comments PROTEIN, URINE (BEAKER) (test code = 45 mg/dL 0-14 H 1569) Revenue [employer] Specialist ID - EDWIN BURINALYSIS W/ [id number] 22:02:00 Test Item Value Reference Range Interpretation [...] (test Urine, Sterile code = 2795) Collection Revenue Cycle Specialist ID - [auto]Revenue Cycle Specialist ID - techHepatitis B core antibody, [id number] 16:02:00 Test Item Value Reference Range Interpretation Comments Hep B Core Total Ab Nonreactive Nonreactive (test code = 22623-2) VALENTE (test code = VALENTE) Revenue Cycle Specialist ID - CHARO F Lab Interpretation (test Normal code = 18223-2) [facility] HospitalHEPATITIS B CORE ANTIBODY, [id number] 16:02:00 Test Item Value Reference Range Interpretation Comments HEPATITIS B CORE TOTAL ANTIBODY Nonreactive Nonreactive (BEAKER) (test code = 497) Revenue [employer] Specialist ID - CHARO FECG 12 [id number] 14:19:40Interface, External Ris In - 01/18/2020 2:19 PM CDTVentricular Rate 62 BPMAtrial Rate 62 BPMP-R Interval 138 msQRS Duration 86 msQ-T Interval 452 msQTC Calculation(Bazett) 458 msP [place] 59 degreesR [place] 32 degreesT [place] 56 degreesNormal sinus rhythmLow voltage QRSNonspecific ST eotzxvrtdah43 DEC 2019 11:05Nonspecific T wave abnormality Nonspecific T wave abnormality, improved inQT has shortenedConfirmed by MD FARHAT, [facility] (190) on 01/18/2020 2:19:38 [facility] Cytomegalovirus antibody, [id number] 13:49:00 Test Item Value Reference Range Interpretation Comments CYTOMEGALOVIRUS, IGG Positive Negative, A (test code = 3429) Equivocal VALENTE (test code = VALENTE) CMV IgG Result Interpretation: </= 0.8 Al Negative 0.9-1.0 Al Equivocal >/=1.1 Al Positive Lab Interpretation (test Abnormal code = 95079-0) [facility] HospitalEBV-VCA antibody, [id number] 13:49:00 Test Item Value Reference Range Interpretation Comments GABRIEL CHING VIRAL Positive Negative, A CAPSID ANTIGEN IGG (test Equivocal code = 3415) VALENTE (test code = VALENTE) Gabriel Ching Viral Capsid Antigen IgG Result Interpretation: </= 0.8 Al Negative 0.9-1.0 Al Equivocal >/= 1.1 Al Positive Lab Interpretation (test Abnormal code = 51976-4) [facility] HospitalEBV-VCA antibody, [id number] 13:49:00 Test Item Value Reference Range Interpretation Comments GABRIEL CHING VIRAL Negative Negative, CAPSID ANTIGEN IGM (test Equivocal code = 3418) VALENTE (test code = VALENTE) Gabriel Ching Viral Capsid Antigen IgM Result Interpretation: </= 0.8 Al Negative 0.9-1.0 Al Equivocal >/= 1.1 Al Positive Lab Interpretation (test Normal code = 87728-3) [facility] HospitalCytomegalovirus antibody, [id number] 13:49:00 Test Item Value Reference Range Interpretation Comments CMV IGM (test code = Negative Negative, 3437) Equivocal VALENTE (test code = VALENTE) CMV IgM Result Interpretation: </= 0.8 Al Negative 0.9-1.0 Al Equivocal >/= 1.1 Al Positive Lab Interpretation (test Normal code = 21426-1) [facility] HospitalCYTOMEGALOVIRUS ANTIBODY, [id number] 13:49:00 Test Item Value Reference Range Interpretation Comments CYTOMEGALOVIRUS, IGG (BEAKER) Positive Negative, Equivocal A (test code = 3429) CMV IgG Result Interpretation: </= 0.8 Al Negative 0.9-1.0 Al Equivocal >/=1.1 Al PositiveCYTOMEGALOVIRUS ANTIBODY, [id number] 13:49:00 Test Item Value Reference Range Interpretation Comments CYTOMEGALOVIRUS IGM ANTIBODY Negative Negative, Equivocal (BEAKER) (test code = 3437) CMV IgM Result Interpretation: </= 0.8 Al Negative 0.9-1.0 Al Equivocal >/= 1.1 Al PositiveEBV ANTIBODY, [id number] 13:49:00 Test Item Value Reference Range Interpretation [...] Negative 0.9-1.0 Al Equivocal >/= 1.1 Al [id number] 13:35:00 Test Item Value Reference Range Interpretation Comments T3, Total (test code = 3053-6) 51 ng/dL 48-159 Lab Interpretation (test code = Normal 83123-6) [facility] 13:35[facility]00 Test Item Value Reference Range Interpretation Comments T3 TOTAL (KIRK) (test code = 656) 51 ng/dL 48-159 PET/CT, CARDIAC PERF REST AND [id number] 12:45:00Referring: Dr. Rowdy Zhang for exam:->pre op cardiac clearance for liver transplantFINAL REPORT PROCEDURE: MYOCARDIAL PERFUSION PET IMAGING (Rest/Stress)CPT CODE: 05185 INDICATION: Evaluation for liver transplant CARDIOVASCULAR PROFILE:Symptoms: [...] MDReport Verified Date/Time: 01/18/2020 12:45:40 Reading Location: [address] Reading Room N Myocardial Perfusion Pet/CT (Rest & Stress)2020-01-18 12:45:00Interface, External Ris In - 01/18/2020 12:47 PM CDTFINAL REPORT PROCEDURE: MYOCARDIAL PERFUSION PET IMAGING (Rest/Stress)CPT CODE: 38900 INDICATION: Evaluation for liver transplant CARDIOVASCULAR PROFILE:Symptoms: [...] MDReport Verified Date/Time: 01/18/2020 12:45:40 Reading Location: [address] Reading Room [facility] HEPATIC FUNCTION [id number] 10:29:00 Test Item Value Reference Range Interpretation [...] (test code = 9 U/L 6-55 347) Revenue Cycle Specialist ID - CHARO FSpecimen moderately ictericCBC W/PLT COUNT & AUTO [id number] 08:43:00 Test Item Value Reference Range Interpretation [...] CONCENTRATION Decreased (CELLAVISION)(BEAKER) (test code = 3438) Revenue Cycle Specialist ID - [id number] ID - Lizett OverholtUser comments: Slide comments: [id number] 07:29:00 Test Item Value Reference Range Interpretation Comments MAGNESIUM (BEAKER) (test code = 2.1 mg/dL 1.6-2.6 627) Revenue Cycle Specialist ID - CHARO FBASIC METABOLIC [id number] 07:29:00 Test Item Value Reference Range Interpretation [...] S NOT APPLICABLE FOR DIALYSIS PATIEN TS. Revenue Cycle Specialist ID - [place] FSpecimen moderately ictericAnti-Nuclear Antibody (REILLY) 2020-01-17 10:54:00 Test Item Value Reference Range Interpretation Comments REILLY (test code = 91748-6) Negative Negative VALENTE (test code = VALENTE) Test performed by IFA method.Test performed by IFA method. Lab Interpretation (test Normal code = 34048-4) [facility]CLE[facility]TIBODY (REILLY)2020-01-17 10:54:00 Test Item Value Reference Range Interpretation Comments ANTI-NUCLEAR ANTIBODY (REILLY) (BEAKER) Negative Negative (test code = 418) Test performed by IFA method.Test performed by IFA method.[id number] 10:49:00 Test Item Value Reference Range Interpretation Comments RPR (test code = 39622-8) Nonreactive Nonreactive Lab Interpretation (test code = Normal 56203-8) [facility]PR[facility] 10:49:00 Test Item Value Reference Range Interpretation Comments RPR SCREEN (BEAKER) (test code = Nonreactive Nonreactive 420) CBC W/PLT COUNT & AUTO [id number] 10:00:00 Test Item Value Reference Range Interpretation [...] CONCENTRATION Decreased (CELLAVISION)(BEAKER) (test code = 3438) Revenue Cycle Specialist ID - [id number] ID - Alem Mars comments: Slide comments:BASIC METABOLIC [id number] 05:16:00 Test Item Value Reference Range Interpretation [...] S NOT APPLICABLE FOR DIALYSIS PATIEN TS. Revenue Cycle Specialist ID - MIKEAYA LSpecimen moderately nnqfpnlHGMXVZJVN0151-31-94 05:15:00 Test Item Value Reference Range Interpretation Comments MAGNESIUM (BEAKER) (test code = 2.1 mg/dL 1.6-2.6 627) Revenue Cycle Specialist ID - MITCH LPROTHROMBIN TIME/[id number] 04:50:00 Test Item Value Reference Range Interpretation [...] patients wiht mechanical heart valves.Vitamin B12 and [id number] 16:46:00 Test Item Value Reference Range Interpretation Comments Vitamin B12 (test code = 1107 pg/mL 213-816 H 2132-9) Folate (test code = 2284-8) 3.40 ng/mL >=7.00 L VALENTE (test code = VALENTE) Revenue Cycle Specialist ID - NTP Lab Interpretation (test Abnormal code = 00060-3) [facility] HospitalVITAMIN B12 AND [id number] 16:46:00 Test Item Value Reference Range Interpretation Comments VITAMIN B12 (BEAKER) (test code = 1107 pg/mL 213-816 H 774) FOLATE (BEAKER) (test code = 362) 3.40 ng/mL >=7.00 L Revenue Cycle Specialist ID - NTPLactate dehydrogenase (LDH)2020-01-16 12:57:00 Test Item Value Reference Range Interpretation Comments LDH (test code = 2532-0) 250 U/L 125-220 H VALENTE (test code = VALENTE) Revenue Cycle Specialist ID - TUAN C Lab Interpretation (test Abnormal code = 36731-3) [facility] HospitalLACTATE DEHYDROGENASE (LDH)2020-01-16 12:57:00 Test Item Value Reference Range Interpretation Comments LACTATE DEHYDROGENASE (BEAKER) (test 250 U/L 125-220 H code = 635) Revenue Cycle Specialist ID - TUAN CRETICULOCYTE [id number] 12:44:00 Test Item Value Reference Range Interpretation Comments RETICULOCYTE COUNT PCT (BEAKER) (test 5.0 % 0.5-1.7 H code = 575) Revenue Cycle Specialist ID - JohnHIV-1 Antigen with HIV-1/2 Xwzgkzae0049-06-75 12:17:00 Test Item Value Reference Range Interpretation Comments HIV-1 Antigen with HIV Nonreactive Nonreactive 1&2 Antibody (test code = 78159-2) VALENTE (test code = VALENTE) Revenue Cycle Specialist ID TUAN C Lab Interpretation (test Normal code = 92651-5) [facility] ANTIGEN WITH HIV-1/2 [id number] 12:17:00 Test Item Value Reference Range Interpretation Comments HIV-1 ANTIGEN WITH HIV 1\\T\\2 Nonreactive Nonreactive ANTIBODY (2) (BEAKER) (test code = 2586) Revenue Cycle Specialist ID - TUAN DDjcundrfmuo4176-35-42 12:02:00 Test Item Value Reference Range Interpretation Comments Haptoglobin (test code = <8 14-258 L 4542-7) VALENTE (test code = VALENTE) Revenue Cycle Specialist ID - TUAN C Lab Interpretation (test Abnormal code = 07372-2) [facility] HospitalHAPTOGLOBIN2020-06-21 12:02:00 Test Item Value Reference Range Interpretation Comments HAPTOGLOBIN (BEAKER) (test code = < mg/dL 14-258 L 366) Revenue Cycle Specialist ID - TUAN CHemoglobin [id number] 09:01:00 Test Item Value Reference Range Interpretation Comments Hemoglobin A1C (test code = 4548-4) <3.8 4.3-6.1 L Lab Interpretation (test code = Abnormal 04625-1) [facility] HospitalHEMOGLOBIN [id number] 09:01:00 Test Item Value Reference Range Interpretation Comments HEMOGLOBIN A1C (BEAKER) (test code = < % 4.3-6.1 L 368) U/S, ABDOMINAL, WITH [id number] 07:32:00Referring: Dr. Rowdy Mccarthy Reason for exam:->liver [...] Verified Date/Time: 01/16/2020 07:32:01 Reading Location: [address] Transitional Reading Room US abdominal with zwhnxfm8185-03-24 07:32:00Interface, External Ris In - 01/16/2020 7:34 [...] Verified Date/Time: 01/16/2020 07:32:01 Reading Location: [address] Transitional Reading Room [facility] METABOLIC [id number] 04:41:00 Test Item Value Reference Range Interpretation [...] S NOT APPLICABLE FOR DIALYSIS PATIEN TS. Revenue Cycle Specialist ID - MITCH RUTHERFORDpecimen moderately fsvmzehXNDEZQVDD6238-86-92 04:38:00 Test Item Value Reference Range Interpretation Comments MAGNESIUM (BEAKER) (test code = 2.3 mg/dL 1.6-2.6 627) Revenue Cycle Specialist ID - MITCH LHEPATIC FUNCTION BQKJD9166-86-14 04:38:00 Test Item Value Reference Range Interpretation [...] (test code = 9 U/L 6-55 347) Revenue Cycle Specialist ID Mercedes Goetzimen moderately ictericPROTHROMBIN TIME/[id number] 04:36:00 Test Item Value Reference Range Interpretation [...] mechanical heart valves.CBC W/PLT COUNT & AUTO [id number] 04:29:00 Test Item Value Reference Range Interpretation [...] (BEAKER) (test code = 2801) Carotid doppler itgaiicrl7352-35-37 00:34:03Ejection [facility] ECHO HEARTLAB MKCKESSON CPACSRight Impression1. The [...] AM CDTPV LAB - Carotid Duplex Study Sal padmaja Patient Name CICI CALDERON Date of Study 01/15/2020 ALYSE Age 64 Visit Number [id number] Gender Female Accession Number [id number] Date of 1955 Referring Eliecer Carcamo Room Number 1515 Physician Marketing Officer Herbert Lechuga Interpreting Chelsea Resendez, T Physician [...] + + + - Additional Measurements:ICAPSV/CCAPSV 0.96.ICAEDV/CCAEDV 1.52.[facility] UscBlood typing, automated - - at seperate draw time from initial type and [id number] 20:34:00 Test Item Value Reference Range Interpretation Comments ABO/RH AUTOMATED (BEAKER) (test A POSITIVE code = 2260) [facility] 18:08:00 Test Item Value Reference Range Interpretation Comments T4, Total (test code = 4.3 ug/dL 4.9-11.7 L 3026-2) VALENTE (test code = VALENTE) Revenue Cycle Specialist ID - NTP Lab Interpretation (test Abnormal code = 78091-1) [facility] 18:08:00 Test Item Value Reference Range Interpretation Comments T4 TOTAL (BEAKER) (test code = 895) 4.3 ug/dL 4.9-11.7 L Revenue Cycle Specialist ID - LFDBzllynxd6126-19-67 18:07:00 Test Item Value Reference Range Interpretation Comments Ferritin (test code = 489.86 ng/mL 5-275 H 2276-4) VALENTE (test code = VALENTE) Revenue Cycle Specialist ID - NTP Lab Interpretation (test Abnormal code = 68794-2) [facility] HospitalFERRITIN2020-06-20 18:07:00 Test Item Value Reference Range Interpretation Comments FERRITIN (BEAKER) (test code = 489.86 ng/mL 5.00-275.00 H 361) Revenue Cycle Specialist ID - NTPCT, CHEST, WITHOUT [id number] 17:57:00Referring: Dr. Rowdy LopestFINAL REPORT CT of [...] [place] Verified Date/Time: 01/15/2020 17:57:54 Reading Location: [facility] C[facility]X Ortho Consult Reading Room CT chest without IV jkfjxwel7959-98-89 17:57:00Interface, External Ris In - 01/15/2020 6:00 [...] [place] Verified Date/Time: 01/15/2020 17:57:54 Reading Location: [facility] C013X Ortho Consult Reading Room [facility] 2020-01-15 17:27:00 Test Item Value Reference Range Interpretation Comments TSH (test code = 54465-3) 5.549 0.350- 4.940 uIU/mL H VALENTE (test code = VALENTE) Revenue Cycle Specialist ID - DB Lab Interpretation (test Abnormal code = 50899-1) [facility] HospitalVitamin D, 04-Iicsnme4839-17-20 17:27:00 Test Item Value Reference Range Interpretation Comments Vitamin D 25-Hydroxy 6.2 ng/mL 6.6-49.9 L (test code = 2764) VALENTE (test code = VALENTE) Effective 05/07/2017: Reference Range ChangeNew: 6.6-49.9 ng/mL Previous: 13.0-47.8 ng/mL Recommended Vitamin D Target Range: 30.0-40.0 ng/mLOperator ID - DB Lab Interpretation (test Abnormal code = 76684-2) [facility] HospitalVITAMIN D, 96-[id number] 17:27:00 Test Item Value Reference Range Interpretation Comments VITAMIN D 25-OH (BEAKER) (test code 6.2 ng/mL 6.6-49.9 L = 2764) Effective 05/07/2017: Reference Range ChangeNew: 6.6-49.9 ng/mL Previous: 13.0-47.8 ng/mLRecommended Vitamin D Target Range: 30.0-40.0 ng/mLOperator ID - [id number] 17:27:00 Test Item Value Reference Range Interpretation Comments THYROID STIMULATING HORMONE 5.549 uIU/mL 0.350-4.940 H (BEAKER) (test code = 772) Revenue Cycle Specialist ID - DBALPHA FETOPROTEIN (AFP), TUMOR [id number] 17:27:00 Test Item Value Reference Range Interpretation Comments ALPHA-FETOPROTEIN (BEAKER) (test code < ng/mL <10.0 = 1094) Revenue Cycle Specialist ID - DBHepatitis B surface wszheud3877-82-30 17:25:00 Test Item Value Reference Range Interpretation Comments HBsAg Screen (test code Nonreactive Nonreactive = 5195-3) VALENTE (test code = VALENTE) Specimen is considered negative for HBsAg. Lab Interpretation (test Normal code = 54766-4) [facility] HospitalHepatitis B surface gvssilvt2189-86-45 17:25:00 Test Item Value Reference Range Interpretation Comments Hep B S Ab (test code = 25.0 <8.0 mIU/mL H 71675-5) VALENTE (test code = VALENTE) Revenue Cycle Specialist ID - DB Lab Interpretation (test Abnormal code = 84181-8) [facility] C pxrdcjxr1360-23-68 17:25:00 Test Item Value Reference Range Interpretation Comments Hepatitis C Ab (test code = Nonreactive Nonreactive 62438-6) VALENTE (test code = VALENTE) Revenue Cycle Specialist ID - DB Lab Interpretation (test Normal code = 45325-1) [facility] B SURFACE [id number] 17:25:00 Test Item Value Reference Range Interpretation Comments HEPATITIS B SURFACE ANTIGEN (2) Nonreactive Nonreactive (BEAKER) (test code = 2585) Specimen is considered negative for HBsAg.HEPATITIS B SURFACE [id number] 17:25:00 Test Item Value Reference Range Interpretation Comments HEPATITIS B SURFACE ANTIBODY 25.0 mIU/mL <8.0 H (BEAKER) (test code = 647) Revenue Cycle Specialist ID - DBHEKOSAIR CHILDR[facility] HOSPITALTIS C [id number] 17:25:00 Test Item Value Reference Range Interpretation Comments HEPATITIS C ANTIBODY (BEAKER) Nonreactive Nonreactive (test code = 367) Revenue Cycle Specialist ID - DBCarcinoembryonic Antigen (CEA)2020-01-15 17:23:00 Test Item Value Reference Range Interpretation Comments CEA, SERUM (test code = 7.9 ng/mL 0-5 H 9-6) VALENTE (test code = VALENTE) Revenue Cycle Specialist ID - DB Lab Interpretation (test Abnormal code = 45675-5) [facility] B core antibody, [id number] 17:23:00 Test Item Value Reference Range Interpretation Comments Hep B C IgM (test code = Nonreactive Nonreactive 74253-5) AVLENTE (test code = VALENTE) Revenue Cycle Specialist ID - DB Lab Interpretation (test Normal code = 01066-2) [facility], [id number] 17:23:00 Test Item Value Reference Range Interpretation Comments Hep A IgM (test code = Nonreactive Nonreactive 06767-8) VALENTE (test code = VALENTE) Revenue Cycle Specialist ID - DB Lab Interpretation (test Normal code = 90131-5) [facility] HospitalCARCINOEMBRYONIC ANTIGEN (CEA)2020-01-15 17:23:00 Test Item Value Reference Range Interpretation Comments CARCINOEMBRYONIC ANTIGEN (BEAKER) 7.9 ng/mL 0.0-5.0 H (test code = 685) Revenue Cycle Specialist ID - DBHEPATITIS B CORE ANTIBODY, [id number] 17:23:00 Test Item Value Reference Range Interpretation Comments HEPATITIS B CORE IGM ANTIBODY Nonreactive Nonreactive (BEAKER) (test code = 645) Revenue Cycle Specialist ID - DBHEPATITIS A ANTIBODY, [id number] 17:23:00 Test Item Value Reference Range Interpretation Comments HEPATITIS A IGM ANTIBODY (BEAKER) Nonreactive Nonreactive (test code = 498) Revenue Cycle Specialist ID - DBRAD, MANDIBLE, MIN 4 [id number] 17:22:00Referring: Dr. Rowdy Zhang for exam:->liver transplant [...] Verified Date/Time: 01/15/2020 17:22:12 Reading Location: [address] Transitional Reading Room XR mandible min 4 [id number] 17:22:00Interface, External Ris In - 01/15/2020 5:24 [...] [place] Verified Date/Time: 01/15/2020 17:22:12 Reading Location: [facility] C013 Transitional [facility], 2 [id number] 17:16:00Referring: Dr. Rowdy Zhang for exam:->liver transplant [...] Verified Date/Time: 01/15/2020 17:16:49 Reading Location: [address] Transitional Reading Room XR chest 2 [id number] 17:16:00Interface, External Ris In - 01/15/2020 5:19 [...] Verified Date/Time: 01/15/2020 17:16:49 Reading Location: [address] Transitional Reading Room [facility] 2D Echo W/Doppler(CW/PW/Color)2020-01-15 17:15:41Ejection FractionSLEH ECHO HEARTLAB MKCKESSON CPACSInterface, External Ris In - 01/15/2020 5:15 PM C DTTransthoracic Echocardiography Report (TTE) Demographics Patient Name CICI CALDERON Date of Study 01/15/2020 ALYSE Gender Female Visit Number [id number] Race Unknown Room Number 1515 Number Date of 1955 Referring Physician Ren Hernandez MD Age 64 year(s) Marketing Officer Lisa Bautista [facility] Interpreting Jai Arreguin MD Physician Procedure [...] CO: 7.05 l/min LVOT CI: 3.67 l/min/m^2CH[facility] UscCOMPREHENSIVE METABOLIC [id number] 17:06:00 Test Item Value Reference Range Interpretation [...] S NOT APPLICABLE FOR DIALYSIS PATIEN TS. Revenue Cycle Specialist ID - NTPSpecimen moderately qnewkxcOrxnvpwxhm0404-90-63 17:03:00 Test Item Value Reference Range Interpretation Comments Fibrinogen (test code = 3255-7) 114 mg/dl 225-434 L Lab Interpretation (test code = Abnormal 89722-6) [facility] HospitalFIBRINOGEN2020-06-20 17:03:00 Test Item Value Reference Range Interpretation Comments FIBRINOGEN LEVEL (BEAKER) (test 114 mg/dl 225-434 L code = 658) Ujxbcdvpgyg4750-50-50 17:00:00 Test Item Value Reference Range Interpretation Comments Transferrin (test code = 102 mg/dL 174-382 L 3034-6) VALENTE (test code = VALENTE) Revenue Cycle Specialist ID - DBSpecimen moderately icteric Lab Interpretation (test Abnormal code = 77588-0) [facility] HospitalIron, TIBC, % sat. (without ferritin)2020-01-15 17:00:00 Test Item Value Reference Range Interpretation Comments Iron (test code = 2498-4) 144.0 ug/dL 40-160 TIBC (test code = 2500-7) 129 ug/dL 250-450 L Iron % Saturation (test code 112 % 20-55 H = 2502-3) VALENTE (test code = VALENTE) Revenue Cycle Specialist ID - DB Lab Interpretation (test Abnormal code = 95704-1) [facility] HospitalTRANSFERRIN2020-06-20 17:00:00 Test Item Value Reference Range Interpretation Comments TRANSFERRIN (BEAKER) (test code = 102 mg/dL 174-382 L 541) Revenue Cycle Specialist ID - DBSpecimen moderately ictericIRON, TIBC, % SAT. (WITHOUT FERRITIN) 2020-01-15 17:00:00 Test Item Value Reference Range Interpretation Comments IRON (BEAKER) (test code = 547) 144.0 ug/dL 40.0-160.0 TOTAL IRON BINDING CAPACITY 129 ug/dL 250-450 L (BEAKER) (test code = 769) IRON % SATURATION (2) (BEAKER) 112 % 20-55 H (test code = 2590) Revenue Cycle Specialist ID - VFKolrk-8-advcvvhpoaw7935-06-20 16:59:00 Test Item Value Reference Range Interpretation Comments A-1 Antitrypsin (test code = 121.20 mg/dL 90-200 1825-9) VALENTE (test code = VALENTE) Revenue Cycle Specialist ID - DB Lab Interpretation (test Normal code = 52114-9) [facility] HospitalBILIRUBIN, [id number] 16:59:00 Test Item Value Reference Range Interpretation Comments BILIRUBIN DIRECT 1.6 mg/dL 0.1-0.5 H Specimen sl ightly (BEAKER) (test code = hemoly zed 706) Revenue Cycle Specialist ID - ZZRCLVHM-0-MKTJCWFTBUO9405-06-20 16:59:00 Test Item Value Reference Range Interpretation Comments ALPHA-1 ANTITRYPSIN (BEAKER) 121.20 mg/dL 90.00-200.00 (test code = 502) Revenue Cycle Specialist ID - IYMsadnwf5165-61-77 16:58:00 Test Item Value Reference Range Interpretation Comments Ethanol Lvl (test code = <10 <=10 mg/dL 5643-2) VALENTE (test code = VALENTE) Revenue Cycle Specialist ID - DB Lab Interpretation (test Normal code = 32442-8) [facility] HospitalaPTT2020-06-20 16:58:00 Test Item Value Reference Range Interpretation Comments PTT (test code = 62487-3) 36.8 22.5- 36.0 seconds H Lab Interpretation (test code = Abnormal 13553-7) [facility] HospitalAPTT2020-06-20 16:58:00 Test Item Value Reference Range Interpretation Comments PARTIAL THROMBOPLASTIN TIME 36.8 seconds 22.5-36.0 H (BEAKER) (test code = 760) [id number] 16:58:00 Test Item Value Reference Range Interpretation Comments ETHANOL (BEAKER) (test code = 400) < mg/dL <=10 Revenue Cycle Specialist ID - DBPROTHROMBIN TIME/DQR2701-92-15 16:57:00 Test Item Value Reference Range Interpretation [...] is2.5-3.5 for patients wiht mechanical heart valves.CALCIUM, [id number] 16:45:00 Test Item Value Reference Range Interpretation Comments CALCIUM IONIZED (BEAKER) (test 1.08 mmol/L 1.12-1.27 L code = 698) PH, BLOOD (BEAKER) (test code = 7.38 1810) CREATININE, RANDOM [id number] 13:46:00 Test Item Value Reference Range Interpretation Comments CREATININE URINE (BEAKER) (test 280.7 mg/dL code = 375) Reference Range: No NormalsOperator ID - NTPSODIUM, RANDOM [id number] 13:46:00 Test Item Value Reference Range Interpretation Comments SODIUM URINE (BEAKER) (test code = < meq/L 243) Reference Range: No NormalsOperator ID - NTPHepatitis panel, [id number] 13:05:00 Test Item Value Reference Range Interpretation Comments Hep A IgM (test code = Nonreactive Nonreactive 31388-1) Hep B C IgM (test code = Nonreactive Nonreactive 74725-0) Hepatitis C Ab (test code = Nonreactive Nonreactive 61428-6) HBsAg Screen (test code = Nonreactive Nonreactive 5195-3) VALENTE (test code = VALENET) Revenue Cycle Specialist ID - NTP Lab Interpretation (test Normal code = 67488-3) [facility] HospitalHEPATITIS PANEL, [id number] 13:05:00 Test Item Value Reference Range Interpretation Comments HEPATITIS A IGM ANTIBODY (BEAKER) Nonreactive Nonreactive (test code = 498) HEPATITIS B CORE IGM ANTIBODY Nonreactive Nonreactive (BEAKER) (test code = 645) HEPATITIS C ANTIBODY (BEAKER) Nonreactive Nonreactive (test code = 367) HEPATITIS B SURFACE ANTIGEN (2) Nonreactive Nonreactive (BEAKER) (test code = 2585) Revenue Cycle Specialist ID - NTPLipid hikow9162-16-72 11:51:00 Test Item Value Reference Range Interpretation Comments Triglycerides (test 86 mg/dL code = 2571-8) Cholesterol (test code 101 mg/dL = 2093-3) HDL (test code = 12 mg/dL 2085-9) LDL Calculated (test 72 mg/dL code = 62126-3) VALENTE (test code = VALENTE) Triglyceride Reference Range: Low Risk <150 Borderline 150-199 High Risk 200-499 Very High Risk >=500 Cholesterol Reference Range: Low Risk <200 Borderline 200-239 High Risk >240 HDL Cholesterol Reference Range: Low Risk >=60 High Risk <40 LDL Cholesterol Reference Range: Optimal <100 Near Optimal 100-129 Borderline 130-159 High 160-189 Very High >=190 Revenue Cycle Specialist ID - NTPSpecimen moderately icteric [facility] HospitalGamma Glutamyl Transferase (GGT)2020-01-15 11:51:00 Test Item Value Reference Range Interpretation Comments GGT (test code = 2324-2) 15 U/L 9-64 VALENTE (test code = VALENTE) Revenue Cycle Specialist ID - NTPSpecimen moderately icteric Lab Interpretation (test Normal code = 90916-8) [facility] HospitalUric [id number] 11:51:00 Test Item Value Reference Range Interpretation Comments Uric Acid (test code = 15.7 mg/dL 2.6-7.2 H 3084-1) VALENTE (test code = VALENTE) Revenue Cycle Specialist ID - NTPSpecimen moderately icteric Lab Interpretation (test Abnormal code = 31091-5) [facility] HospitalURIC [id number] 11:51:00 Test Item Value Reference Range Interpretation Comments URIC ACID (BEAKER) (test code = 15.7 mg/dL 2.6-7.2 H 773) Revenue Cycle Specialist ID - NTPSpecimen moderately ictericLIPID [id number] 11:51:00 Test Item Value Reference Range Interpretation [...] Borderline 130-159 High 160-189 Very High >=190 Revenue Cycle Specialist ID - NTPSpecimen moderately mqspicsUQYHOEUUQQ2088-77-44 11:51:00 Test Item Value Reference Range Interpretation Comments PHOSPHORUS (BEAKER) (test code = 4.5 mg/dL 2.3-4.7 604) Revenue Cycle Specialist ID - NTPGAMMA GLUTAMYL TRANSFERASE (GGT)2020-01-15 11:51:00 Test Item Value Reference Range Interpretation Comments GAMMA GLUTAMYL TRANSFERASE (BEAKER) 15 U/L 9-64 (test code = 364) Revenue Cycle Specialist ID - NTPSpecimen moderately ictericCBC W/PLT COUNT & AUTO FCQQHJDLXKFK9985-11-40 11:25:00 Test Item Value Reference Range Interpretation [...] CONCENTRATION Decreased (CELLAVISION)(BEAKER) (test code = 3438) Revenue Cycle Specialist ID - [id number] ID - Ana Laura James comments: Slide comments: [id number] 10:20:00 Test Item Value Reference Range Interpretation Comments MAGNESIUM (BEAKER) (test code = 2.2 mg/dL 1.6-2.6 627) Revenue Cycle Specialist ID - XYSZodxovi8646-47-94 08:57:00 Test Item Value Reference Range Interpretation Comments Ammonia (test code = 19 18- 72 mol/L 92674-8) VALENTE (test code = VALENTE) Revenue Cycle Specialist ID - NTP Lab Interpretation (test Normal code = 97416-1) [facility] HospitalAMMONIA2020-06-20 08:57:00 Test Item Value Reference Range Interpretation Comments AMMONIA (BEAKER) (test code = 348) 19 mol/L 18-72 Revenue Cycle Specialist ID - NTPHEPATIC FUNCTION [id number] 05:21:00 Test Item Value Reference Range Interpretation [...] (test code = 12 U/L 6-55 347) Revenue Cycle Specialist ID - DALTON MSpecimen moderately ictericBASIC METABOLIC [id number] 05:15:00 Test Item Value Reference Range Interpretation [...] S NOT APPLICABLE FOR DIALYSIS PATIEN TS. Revenue Cycle Specialist ID - DALTON MSpecimen moderately ictericPROTHROMBIN TIME/[id number] 04:37:00 Test Item Value Reference Range Interpretation [...] Detected Not Detected, (test code = Negative 99745-4) SARS-COV-2 [facility] PERFORMING LAB (test code = 83693-8) VALENTE (test code = Negative results do [...] of the Act. Fact Sheet for Healthcare Providers:https://www.Wellsphere/Documents/Xper t%20Xpress%20SARS%20CoV- 2/Fact%20Sheets/3023802 %15CMJF-EWX-0%20HEALTHCA RE%20PROVIDERS%20FACT%20 SHEET.pdf Fact Sheet for Healthcare Patients:https://www.Judobaby/Documents/Xpert %20Xpress%20SARS%20CoV-2 /Fact%20Sheets/3023801% 15PREK-WVC-6%20PATIENT%2 0FACT%20SHEET.pdf Performing Laboratory:[facility], [place] [address] [place], [place] [address]ARS-COV2/RT-PCR ([facility])2020-01-15 01:48:00 Test Item Value Reference Range Interpretation Comments SARS-COV2/RT-PCR (test Not Detected Not Detected, Negative code = 9002359) SARS-COV-2 PERFORMING LAB [facility] (test code = 3775706) Negative results do not preclude SARS-CoV-2 infection [...] of the Act.Fact Sheet for Healthcare Pro viders:https://www.[employer]/Documents/Xpert%20Xpress%20SARS%20CoV-2/Fact%20Sh eets/302-3802%43AIFE-DIO-3%20HEALTHCARE%20PROVIDERS%20FACT%20SHEET.pdfFact Sheet for Healthcare Patients:https://www.[employer]/Documents/Xpert%20Xpress%20SARS%20CoV-2/Fact%20Sheets/3023801%20SARS-COV -2%20PATIENT%20FACT%20SHEET.pdfPerforming Laboratory:[facility] [place] [address].[place], [place] [address]HSQTS METABOLIC [id number] 22:40:00 Test Item Value Reference Range Interpretation [...] S NOT APPLICABLE FOR DIALYSIS PATIEN TS. Revenue Cycle Specialist ID - DBSpecimen moderately ictericHEPATIC FUNCTION [id number] 22:39:00 Test Item Value Reference Range Interpretation [...] Specimen slightly (test code = 347) hemolyzed Revenue [employer] Specialist ID - DBSpecimen moderately ictericPROTHROMBIN TIME/[id number] 22:28:00 Test Item Value Reference Range Interpretation [...] mechanical heart valves.CBC W/PLT COUNT & AUTO [id number] 22:22:00 Test Item Value Reference Range Interpretation [...] code = 2801) ALPHA FETOPROTEIN (AFP), TUMOR [id number] 18:31:00 Test Item Value Reference Range Interpretation Comments ALPHA-FETOPROTEIN (BEAKER) (test code < ng/mL <10.0 = 1094) Revenue Cycle Specialist ID - DBBASIC METABOLIC [id number] 15:23:00 Test Item Value Reference Range Interpretation [...] S NOT APPLICABLE FOR DIALYSIS PATIEN TS. Revenue Cycle Specialist ID - BSPlease sent STATSpecimen moderately ictericHEPATIC FUNCTION [id number] 15:18:00 Test Item Value Reference Range Interpretation [...] (test code = 17 U/L 6-55 347) Revenue Cycle Specialist ID - BSPlease sent STATSpecimen moderately ictericPROTHROMBIN [...] valves.Please sent STATCBC W/PLT COUNT & AUTO [id number] 15:05:00 Test Item Value Reference Range Interpretation [...] (BEAKER) (test code = 2801) CT, ABDOMEN, [id number] 15:58:00Referring: Dr. Rowdy LopestFINAL REPORT CT OF [...] MDReport Verified Date/Time: 05/02/2017 15:58:35 Reading Location: [facility] [facility] CT Body Reading Room CBC W/PLT COUNT & AUTO [id number] 17:30:00 Test Item Value Reference Range Interpretation [...] code = 417) 0.00ALPHA FETOPROTEIN (AFP), TUMOR [id number] 16:31:00 Test Item Value Reference Range Interpretation Comments ALPHA-FETOPROTEIN (BEAKER) (test 3.3 ng/mL <10.0 code = 1094) Effective 06/14/2014: Reference Range ChangeNew: <10.0 Previous: 0.0-8.0 BASIC METABOLIC [id number] 16:13:00 Test Item Value Reference Range Interpretation [...] FOR DIALYSIS PATIEN TS. Specimen slightly ictericLIPID [id number] 16:13:00 Test Item Value Reference Range Interpretation [...] Very High >=190 Specimen slightly ictericHEPATIC FUNCTION [id number] 16:13:00 Test Item Value Reference Range Interpretation [...] (test code = 364) Specimen slightly ictericPROTHROMBIN TIME/[id number] 16:13:00 Test Item Value Reference Range Interpretation [...]
--- NOTE | 2020-07-05 09:33 | RAD REPORT ---
EXAM DESCRIPTION: US - Paracentesis Proc Guidance - 07/05/2020 9:04 am CLINICAL HISTORY: Ascites COMPARISON: Multiple prior paracentesis procedures. TECHNIQUE: The patient presents for ultrasound-guided paracentesis. The procedure, risks and altern atives were discussed with the patient in detail. Oral and written consent were obtained. Time out p rocedure was performed. The patient had no contraindicated allergy or medication history. PT, INR va lues within acceptable limits. Preliminary sonographic evaluation identified right lower quadrant access site. The skin and deeper tissues were anesthetized with 1 percent lidocaine. Under direct sonographic visualization, a parace ntesis catheter was advanced into the peritoneal cavity. Approximately 15 mL of ascites retained for requested laboratory studies. Large volume drainage was initiated. Approximately 10 liters of ascites removed. At the conclusion of the procedure, catheter was withdrawn and a bandage placed at the puncture site. Postprocedure care and precaution instructions were given to the patient. Patient was transferred t o the same day holding area for post paracentesis albumin infusion using referring physician protocol . IMPRESSION: Ultrasound-guided paracentesis as detailed.
[2020-07-05] MEDS ORDERED: ALBUMIN HUMAN 25% 300 ML IV ONE (09:50)
[2020-07-05 10:31] VITALS: BP 91/42; TEMP 98; O2SAT 100
[2020-07-05 12:19] LABS: Appearance SLT. TURBID (CLEAR); Body Fluid Source PERITONEAL; Color of fluid Yellow (COLORLESS)
[2020-07-05 12:20] LABS: Body Fluid WBC 44 /mm^3
== END 2020-07-05 10:45 | disposition home or self-care (01) ==
LOC: DS 08:00
PROVIDERS: ATTEND Internal Medicine Gastroenterology
DX: R18.8 Other ascites (principal)
CPT/HCPCS: 87070; 36415; 89050; 96365; 49083; P9047

== ENCOUNTER 2020-07-18 08:03 | Day surgery (SDC) | payer OTHER ==
--- OUTSIDE RECORDS SUMMARY | 2020-07-18 08:12 | XMS REPORT | Clinical Summary ---
:1955 Author Organization [facility] Address [address] [place] [address] Care Team Providers Name Role Phone Nahun Leonard MD Primary Care Provider Allergies Not on File Medications Not on file Active Problems Not on file Social History Tobacco Use Types Packs/Day Years Used Date Never Assessed Sex Assigned at Date Recorded Not on file Last Filed Vital Signs Not on file Plan of Treatment Health Maintenance Due Date Last Done Comments COVID-19 VACCINE (#1) 1970 BREAST CANCER SCREENING 2004 COLONOSCOPY SCREENING 2004 SHINGLES VACCINES (#1) 2004 65+ PNEUMOCOCCAL VACCINE (1 of - PPSV23) 2019 INFLUENZA VACCINE 02/26/2020 Results Not on fileafter 07/18/2019 Advance Directives For more information, please contact: [phone] Type Date Recorded Patient Painter Maintenance Explanati on Advance Directives, Living Will and Medical Power of Marine Services Technician
--- OUTSIDE RECORDS SUMMARY | 2020-07-18 08:16 | XMS REPORT | Clinical Summary ---
:1955 Author Organization [facility] Address [address] [place] [address] Care Team Providers Name Role Phone Zeinab [...] ctive (ALDACTONE) 25 MG mouth daily. tablet magnesium oxide Take 1 tablet 30 tablet [...] without ascites, unspecified hepatic cirrhosis type (HCC) ergocalciferol Take 1 capsule 4 capsule 2 Active (ERGOCALCIFEROL) (50,000 Units 0 021 1,250 mcg (50,000 total) by mouth unit) once a week. capsuleIndications : Cirrhosis of liver without ascites, unspecified hepatic cirrhosis type (HCC), Vitamin D deficiency ranitidine Take 150 mg by 0 Disc [...] (two) Therap y) encephalopathy times daily. (HCC) ergocalciferol Take 1 capsule 4 capsule 2 Discontinued (ERGOCALCIFEROL) (50,000 Units 0 020 (Reorder) 1,250 mcg (50,000 total) by mouth unit) once a week. capsuleIndications : Cirrhosis of liver without ascites, unspecified hepatic cirrhosis type (HCC), Vitamin D deficiency Active Problems Problem Noted Date Awaiting organ transplant status 07/14/2020 Acute liver failure 01/14/2020 Elevated serum creatinine [...] Encounters Date Type Specialty Care Team Description 07/17/2020 Telephone Transplant Hepatology Cary Talley ow-up FRANCISCA Dodson 07/17/2020 Orders Only Transplant Hepatology Cary Talley Pre- transplant evaluation for liver transplant; R RN 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, unspecified hepatic cirrhosis type (HCC) 07/14/2020 Orders Only Transplant Hepatology Cary Talley Cirr hosis of liver without ascites, unspecified hepatic cirrhosis type (HCC); West RN Vitamin D defic iency 07/14/2020 Telephone Transplant Hepatology Cary Talley ow-up West RN 07/13/2020 Refill Transplant Hepatology Kristofer Cross sis of liver MD Nhi without ascites , unspecified hep atic cirrhosis type (HCC) 07/12/2020 Abstract Transplant Hepatology Cary Talley RN 07/12/2020 Documentation Transplant Hepatology Cary Talley RN 07/07/2020 Telephone Transplant Hepatology Mic Hernandezoin tment (LVM. Tata Ledesma Calling to info rm pt mri appt on has been cancel led due to no ins a uth and will need t o be rescheduled for next available date. Also need to se e if pt still wants to come in for cli radha on 07/11 or she wants to rxd th at appt also.) 07/07/2020 Telephone Transplant Hepatology Rosio Hernandez tmekristin (LVM. Tata Ledesma Calling to conf irm 07/11 appts w/p t. ) 07/06/2020 Telephone Transplant Hepatology Cary Talley RN 06/23/2020 Documentation Transplant Hepatology Cadence Shine 06/14/2020 Documentation Transplant Hepatology Cary Talley RN 06/13/2020 Orders Only Transplant Hepatology Cary Talley Pre- transplant evaluation for liver transplant; R RN 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, unspecified hepatic cirrhosis type (HCC) 06/09/2020 Telephone Transplant Hepatology Cary Talley RN 06/01/2020 Telephone Transplant Hepatology Lizz Shine O nly Cadence 05/29/2020 Orders Only Transplant HepatCary Estrada Pre- transplant evaluation for liver transplant; R RN 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, unspecified hepatic cirrhosis type (HCC) 05/25/2020 Telephone Central Scheduling Rl Appointme nt Cadence 05/25/2020 Telephone Transplant Hepatology Rosio Shine 05/23/2020 Telephone Transplant Hepatology Rl Labs O nly Cadence 05/23/2020 Orders Only Transplant Hepatology David, Pre-tr [...] Talley RN 05/02/2020 Documentation Transplant Hepatology Hamilton, Micheyl 04/20/2020 Documentation Transplant Hepatology Hamilton, Micheyl 04/18/2020 Documentation Transplant Hepatology David, Mary E 04/18/2020 Documentation Transplant Hepatology Cary Talley RN 04/18/2020 Documentation Transplant Hepatology David, Mariaelena 04/18/2020 Documentation Transplant Hepatology David, Tata Ledesma 04/18/2020 Telephone Transplant Hepatology Cary Talley RN 04/17/2020 Orders Only Transplant Hepatology Cary Talley Pre- transplant evaluation for liver transplant; R, RN 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, unspecified hepatic cirrhosis type (HCC) 04/12/2020 Orders Only Transplant Hepatology Cary Talley tin organ transplant status (Primary Dx); R, RN [...] defic iency 04/11/2020 Orders Only Transplant Hepatology Kristofer Cross Cirrho sis of liver without ascites, unspecified hepatic cirrhosis type (HCC); MD Nhi Awaiting organ transplant status; Screening for m alignant neoplasm 04/11/2020 Documentation Transplant Hepatology Cary Talley, RN 04/10/2020 Documentation Transplant Hepatology Hamilton, Micheyblake [...] failure without hepatic coma ; Kristofer Cross Magnesium defic iency; MD Nhi Pre-transplant evaluation for liver transplant; Acute and subac chinik hepatic failure with coma (HCC) 02/15/2020 Telephone [...] Orders Only Hepatology Larry, Line Hepatic Kastrup, SECURITY SYSTEM INSTALLER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) 02/03/2020 Documentation Hepatology [...] Telephone Transplant Hepatology Cary Talley otkecia r R, RN 01/31/2020 Telephone Transplant Hepatology Cary Talley endo crine clearance R, RN 01/21/2020 Abstract Transplant Hepatology Poonam Martínez 01/20/2020 Documentation Transplant Hepatology Poonam Martínez 01/20/2020 Abstract Transplant Hepatology Inge Salazar MA 01/19/2020 Surgery Nallely R & L CATH / MD Brian CORONARY ANGIOS (+/- LV) 01/18/2020 Outside Orders Radiology Mitzy English, SECURITY SYSTEM INSTALLER 01/17/2020 Anesthesia Event Gastroenterology Agatha Lr MD Vences, Wendy Diaz, GLASS ARTIST 01/17/2020 Surgery Gastroenterology Sylvie George UPPER MD [...] Scre ening for malignant neoplasm (Primary Dx); R, [...] Line Obesity (BMI 35.0-39.9 without comorbidity); Kastrup, SECURITY SYSTEM INSTALLER Adrenal mass, l eft ; Screening for m alignant neoplasm; Elevated serum creatinine; Other ascites 12/31/2019 Telephone Hepatology Dai Healy MA 12/21/2019 Documentation Hepatology Kadie Larry Kasjacki, SECURITY SYSTEM INSTALLER 12/17/2019 Abstract Hepatology Iavnna Healy MA 12/16/2019 Abstract Hepatology Janna Aparicio RN 12/16/2019 Abstract Hepatology Janna Aparicio RN 12/16/2019 Abstract Hepatology Janna Aparicio RN 12/15/2019 Audio - Hepatology Kadie Larry Portal hypert ension (Primary Dx); Telemedicine Yvette, SECURITY SYSTEM INSTALLER 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); Obesity (BMI 35 .0-39.9 without comorbidity); Adrenal mass, l eft ; Screening for m alignant neoplasm 12/14/2019 Telephone Hepatology José Sahni Appointment AMRIT [place] after 07/18/2019 Family History Medical History Relation Name Comments [...] Treatment Date Type Specialty Care Team Description 08/08/2020 Appointment Radiology Kristofer Cross MD [address] [address] 0 [phone] 08/08/2020 Follow-Up Transplant Hepatology Whitney Cross MD [address] [address] 0 [phone] Health Maintenance Due Date Last Done Comments BREAST CANCER SCREENING 1955 PNEUMOCOCCAL 65+ YRS (2 of 2 - PPSV23) 2019 0, 02/23/2020 DEPRESSION SCREENING (12+) 07/28/2019 Medicare IPPE (WELCOME TO MEDICARE) 07/28/2019 INFLUENZA VACCINE (#1) 2020 COLON CANCER SCREENING COLONOSCOPY 01/16/2030 01/17/2020 Procedures Procedure Name Priority Date/Time Associated Comments Diagnosis BILIRUBIN, DIRECT STAT 07/17/2020 11:33 Pre-transplant Resu lts for this AM MANAGER TRANSPORTATION evaluation for procedure are in liver transplant the results Cirrhosis of liver section. without ascites, unspecified hepatic cirrhosis type (HCC) CBC W/PLT COUNT & STAT 07/17/2020 11:33 Pre-transplant Resu lts for this AUTO DIFFERENTIAL AM MANAGER TRANSPORTATION evaluation for procedur e are in liver transplant the results Cirrhosis of liver section. without ascites, unspecified hepatic cirrhosis type (HCC) COMPREHENSIVE STAT 07/17/2020 11:33 Pre-transplant Results for this METABOLIC PANEL AM MANAGER TRANSPORTATION evaluation for procedure are in liver transplant the results Cirrhosis of liver section. without ascites, unspecified hepatic cirrhosis type (HCC) PROTHROMBIN TIME/INR STAT 07/17/2020 11:33 Pre-transplant R esults for this AM MANAGER TRANSPORTATION evaluation for procedure are in liver transplant the results Cirrhosis of liver section. without ascites, unspecified hepatic cirrhosis type (HCC) BILIRUBIN, DIRECT STAT 07/11/2020 11:39 Pre-transplant Resu lts for this AM MANAGER TRANSPORTATION evaluation for procedure are in liver transplant the results Cirrhosis of liver section. without ascites, unspecified hepatic cirrhosis type (HCC) CBC W/PLT COUNT & STAT 07/11/2020 11:39 Pre-transplant Resu lts for this AUTO DIFFERENTIAL AM MANAGER TRANSPORTATION evaluation for procedur e are in liver transplant the results Cirrhosis of liver section. without ascites, unspecified hepatic cirrhosis type (HCC) COMPREHENSIVE STAT 07/11/2020 11:39 Pre-transplant Results for this METABOLIC PANEL AM MANAGER TRANSPORTATION evaluation for procedure are in liver transplant the results Cirrhosis of liver section. without ascites, unspecified hepatic cirrhosis type (HCC) PROTHROMBIN TIME/INR STAT 07/11/2020 11:39 Pre-transplant R esults for this AM MANAGER TRANSPORTATION evaluation for procedure are in liver transplant the results Cirrhosis of liver section. without ascites, unspecified hepatic cirrhosis type (HCC) BILIRUBIN, DIRECT STAT 06/13/2020 12:36 Pre-transplant Resu lts for this PM MANAGER TRANSPORTATION evaluation for procedure are in liver transplant the results Cirrhosis of liver section. without ascites, unspecified hepatic cirrhosis type (HCC) CBC W/PLT COUNT & STAT 06/13/2020 12:36 Pre-transplant Resu lts for this AUTO DIFFERENTIAL PM MANAGER TRANSPORTATION evaluation for procedur e are in liver transplant the results Cirrhosis of liver section. without ascites, unspecified hepatic cirrhosis type (HCC) COMPREHENSIVE STAT 06/13/2020 12:36 Pre-transplant Results for this METABOLIC PANEL PM MANAGER TRANSPORTATION evaluation for procedure are in liver transplant the results Cirrhosis of liver section. without ascites, unspecified hepatic cirrhosis type (HCC) PROTHROMBIN TIME/INR STAT 06/13/2020 12:36 Pre-transplant R esults for this PM MANAGER TRANSPORTATION evaluation for procedure are in liver transplant [...] procedure are i n the results section. [id number] AP Routine 01/19/2020 9:43 PHENOTYP PM CDT [...] 452 ms QTC Calculation(Bazett) 458 ms P Onia 59 degrees R Onia 32 degrees T Onia 56 degrees Normal sinus rhythm Normal ECG [...] procedure are i n the results section. [id number]\\, Routine 01/15/2020 4:17 Re sults for this [...] results hepatic cirrhosis section. type (HCC) after 07/18/2019 Results Prothrombin time/INR (07/17/2020 11:33 AM MANAGER TRANSPORTATION)Only the most recent of27 results within the time period is included. Pathologist Sig nature INR 1.2 (H) [facility] Comment: Reference Range 0.9-1.1 Moderate-intensity Warfarin Therapy 2.0-3.0 Higher-intensity Warfarin Therapy 3.0-4.0 PT 11.9 (H) 9.0 - 11.5 sec [facility] Comment: For additional information, please refer to http://education.The Mother List/faq/YUD617 (This link is being provided for informational/ educational purposes only.) Specimen Blood Narrative Performed At STAT [facility] FASTING:NO FASTING: NO Resulting Agency Comment Performing Organization Information: Site ID: [id number] Name: [facility] Address: [address] [place] [phone] Director: Jj Carrasco Performing Organization Address City/State/Zipcode Phone Number [facility] [address] [place] [address] [facility] CBC with platelet count + automated diff (07/17/2020 11:33 AM MANAGER TRANSPORTATION)Only the most recent of11 resultswithin the time period is included. Pathologist Sig nature WBC 4.3 3.8 - 10.8 [facility] Thousand/uL RBC 2.33 (L) 3.80 - 5.10 [facility] Million/uL Hemoglobin 8.4 (L) 11.7 - 15.5 g/dL [facility] Hematocrit 24.3 (L) 35.0 - 45.0 % [facility] MCV 104.3 (H) 80.0 - 100.0 fL [facility] MCH 36.1 (H) 27.0 - 33.0 pg [facility] MCHC 34.6 32.0 - 36.0 g/dL [facility] RDW 13.4 11.0 - 15.0 % [facility] MPV 10.9 7.5 - 12.5 fL [facility] # Neutros 2,756 1,500 - 7,800 [facility] cells/uL # Lymphs 714 (L) 850 - 3,900 [facility] cells/uL # Monos 340 200 - 950 [facility] cells/uL # Eos 460 15 - 500 [facility] cells/uL # Baso 30 0 - 200 cells/uL [facility] % Neutros 64.1 % [facility] % Lymphs 16.6 % [facility] % Monos 7.9 % [facility] % Eos 10.7 % [facility] % Baso 0.7 % [facility] Platelets TNP Thousand/uL [facility] Comment: TEST(S) NOT PERFORMED: PLATELET COUNT Unable to report due to significant clumping. Platelet estimate appears to be decreased but greater than 30,000/uL. Specimen Blood Narrative Performed At STAT [facility] FASTING:NO FASTING: NO Resulting Agency Comment Performing Organization Information: Site ID: [id number] Name: [facility] Address: [address] [place] [phone] Director: Jj Carrasco Performing Organization Address City/[facility] Phone Number [facility] [address] [place] [address] [facility] Bilirubin, direct (07/17/2020 11:33 AM MANAGER TRANSPORTATION)Only the most recent of14 results within the time period is included. Pathologist Sig nature Bilirubin, Total 3.2 (H) 0.2 - 1.2 mg/dL [facility] Bilirubin, Direct 1.1 (H) < OR = 0.2 mg/dL [facility] Bilirubin, Indirect 2.1 (H) 0.2 - 1.2 mg/dL (calc) [facility] Specimen Blood Narrative Performed At STAT [facility] FASTING:NO FASTING: NO Resulting Agency Comment Performing Organization Information: Site ID: [id number] Name: [facility] Address: [address] [place] [phone] Director: Jj Carrasco Performing Organization Address City/[facility] Phone Number [facility] [address] [facility] [place] [address] [facility] Comprehensive metabolic panel (07/17/2020 11:33 AM MANAGER TRANSPORTATION)Only the most recent of18 resultswithin the time period is included. Glucose 147 (H) 65 - 139 [facility] Comment: mg/dL Non-fasting reference interval BUN 45 (H) 7 - 25 mg/dL [facility] Creatinine 2.84 (H) 0.50 - 0.99 [facility] Comment: mg/dL For patients >49 years of age, the reference limit for Creatinine is approximately 13% higher for people identified as -Guatemalan. eGFR If NonAfricn 17 (L) > OR = 60 [facility] Am mL/min/1.73m2 eGFR If Africn Am 19 (L) > OR = 60 [facility] mL/min/1.73m2 BUN/Creatinine 16 6 - 22 (calc) [facility] Ratio Sodium 136 135 - 146 [facility] mmol/L Potassium, Serum 4.6 3.5 - 5.3 [facility] mmol/L Chloride 107 98 - 110 [facility] mmol/L Carbon Dioxide, 21 20 - 32 [facility] Total mmol/L Calcium, Serum 10.6 (H) 8.6 - 10.4 [facility] mg/dL Protein, Total, 5.7 (L) 6.1 - 8.1 [facility] Serum g/dL Albumin 3.1 (L) 3.6 - 5.1 [facility] g/dL GLOBULIN (QUEST) 2.6 1.9 - 3.7 [facility] g/dL (calc) Albumin Globulin 1.2 1.0 - 2.5 [facility] Ratio (calc) Bilirubin, Total 3.2 (H) 0.2 - 1.2 [facility] mg/dL Alkaline 83 37 - 153 U/L [facility] Phosphatase, S AST (SGOT) 26 10 - 35 U/L [facility] ALT (SGPT) 12 6 - 29 U/L [facility] Specimen Blood Narrative Performed At STAT [facility] FASTING:NO FASTING: NO Resulting Agency Comment Performing Organization Information: Site ID: [id number] Name: [facility] Address: [address] [place] [address], [place] [address] Director: Jj Carrasco Performing Organization Address City/State/Zipcode Phone Number [facility] [address] [place] [place] [address] [facility] PLATELET ESTIMATION (05/02/2020 1:25 PM CDT)Only the most recent of3 results within the time period is included. Pathologist Sig nature Platelet Estimate DECREASED (A) ADEQUATE [facility] Specimen Narrative Performed At FASTING:NO [facility] FASTING: NO Resulting Agency Comment Performing Organization Information: Site ID: [id number] Name: [facility] Address: [address] [place] [address], [place] [address] Director: Jj Carrasco Performing Organization Address [facility] Cent[facility] Phone Number [facility] [address] [place] [place] [address] [facility] XR dxa bone density study (04/11/2020 11:51 AM CDT) Specimen Narrative Performed At FINAL REPORT [employer] Bone density study, 04/11/2020 Clinical History: Screening [...] Report Verified Date/Time: 04/11/2020 13:34:32 Reading Location: [address] Room Procedure Note Interface, External Ris [...] Verified Date/Time: 04/11/2020 1 3:34:32 Reading Location: [address] ading Room Performing Organization Address City/State/Zipcode Phone Number R[facility] CBC with platelet count + automated diff (04/11/2020 11:13 AM CDT)Only the most recent of16 resultswithin the time period is included. Pathologist Sig nature WBC 3.5 3.5 - 10.5 [facility] K/L [facility] RBC 2.51 (L) 3.93 - 5.22 [facility] M/L [facility] Hemoglobin 9.4 (L) 11.2 - 15.7 [facility] GM/DL [facility] Hematocrit 30.2 (L) 34.1 - 44.9 % [facility] MCV 120.3 (H) 79.4 - 94.8 fL [facility] MCH 37.5 (H) 25.6 - 32.2 pg [facility] MCHC 31.1 (L) 32.2 - 35.5 [facility] GM/DL [facility] RDW 14.6 (H) 11.7 - 14.4 % [facility] Platelets 57 (L) 150 - 450 K/CU [facility] MM [facility] MPV 10.4 9.4 - 12.3 fL [facility] [...] CENTER # Neutros 2.09 1.56 - 6.13 [facility] # Lymphs 0.67 (L) 1.18 - 3.74 [facility] # Monos 0.43 (H) 0.24 - 0.36 [facility] # Eos 0.28 0.04 - 0.36 [facility] # Baso 0.02 0.01 - 0.08 [facility] Immature 0 0 - 1 % [facility] Granulocytes-Relativ [facility] Specimen Blood Performing Organization Address City/State/Zipcode Phone Number [facility] [address] [place] [address] CENTER Alpha fetoprotein (AFP), tumor marker (04/11/2020 11:13 AM CDT)Only the most recent of3 resultswithin the time period is included. Pathologist Sig nature Alpha-Fetoprotein <2.0 <10.0 ng/mL [facility] Specimen Blood Narrative Performed At Cotton Baler ID - BS [facility] Performing Organization Address City/State/Zipcode Phone Number [facility] [address] [place] [address] CENTER Miscellaneous lab test (02/15/2020 12:29 PM CDT)Only the most recent of2 results within the time period is included. Pathologist Sig nature Scan Result [facility] Specimen Blood Narrative Performed At This result has an attachment that is no t available. Performing Organization Address City/State/Zipcode Phone Number [facility] [address] [facility] o, [place] Magnesium (02/15/2020 12:29 PM CDT)Only the most recent of13 resultswithin the time period is included. Pathologist Sig nature Magnesium 1.8 1.6 - 2.6 mg/dL [facility] Specimen Blood Narrative Performed At Cotton Baler ID - LM [facility] Performing Organization Address City/State/Zipcode Phone Number [facility] [address] [place] [address] FELLOWS RHYTHM STRIP - SCAN (01/27/2020 10:00 AM [...] analytical performance characteristics have been determined by [facility]. It has not been cleared or approved by FDA. This assay has been validated pursuant to the CLIA regulations and is used for clini steven purposes. Normetanephrine 213 (H) < OR = 148 [facility] Comment: pg/mL INCORPORATED This test was developed and its analytical performance characteristics have been determined by [facility]. It has not been [...] Plasma Fractionated Metanephrines for Pheochromocytoma. The J the neuromedical centernal of Clinical Endocrinology and Metabolism 93 (1),91-95, 2008. For additional information, please refer to http://education.[employer].MindBites/faq/MetFractFree (This link is being provided for informational/educati onal purposes only.) This test was developed and its analytical performance characteristics have been determined by [facility]. It has not been cleared or approved by FDA. This assay has been validated pursuant to the CLIA regulations and is used for clini steven purposes. Specimen Blood Narrative Performed At Performing Lab [facility] [address] [address] [place] [address] Mark Encarnacion MD, PhD, AMINA Performing Organization Address City/State/Zipcode [place] [address] INCORPORATED [address] [facility] Calcium, Ionized (01/26/2020 3:50 AM CDT)Only the most recent of7 resultswithin the time period is included. Pathologist Sig nature Calcium, Ion 1.11 (L) 1.12 - 1.27 mmol/L [facility] pH, Blood 7.41 [facility] Specimen Blood Performing Organization Address City/State/Zipcode Phone Number [facility] [address] [place] [address] CENTER Phosphorus (01/26/2020 3:50 AM CDT)Only the most recent of7 resultswithin the time period is included. Pathologist Sig nature Phosphorus 3.2 2.3 - 4.7 mg/dL [facility] Specimen Blood Narrative Performed At Cotton Baler ID - BS [facility] Performing Organization Address City/[facility] Centercode Phone Number [address] [address] CENTER Hepatic function panel (01/26/2020 [...] MEDICAL CENTER Specimen Blood Narrative Performed At Cotton Baler ID - BS [facility] Specimen moderately icteric Performing Organization Address City/State/Zipcode Phone Number [address] [address] CENTER Manual Differential (01/25/2020 3:47 [...] Poikilocytes 2+ moderate [facility] [place] Cells 2+ moderate [facility] Artifact Present [facility] Platelet Conc Decreased [facility] Specimen Blood Narrative Performed At Cotton Baler ID - [id number] [facility] ID - Maria Del Carmen Anguiano User comments: Slide comments: Performing Organization Address City/State/Zipcode Phone Number [facility] [address] [place] [address] CENTER Basic Metabolic Panel (01/25/2020 [...] CENTER Creatinine 2.35 (H) 0.57 - 1.25 [facility] mg/dL [facility] Glucose 108 (H) 70 - 105 mg/dL [facility] Calcium 8.7 8.4 - 10.2 [facility] mg/dL [facility] EGFR 21Comment: ESTIMATED mL/min/1.73 sq [facility] GFR IS NOT m [facility] ACCURATE FELLOWS CREATININE CLEARANCE IN PREDICTING GLOMERULAR FILTRATION RATE. ESTIMATED GFR IS NOT APPLICABLE FOR DIALYSIS PATIENTS. Specimen Blood Narrative Performed At Cotton Baler ID - PIAYA L [facility] Specimen moderately icteric Performing Organization Address City/State/Zipcode Phone Number [facility] [address] [place] [address] CENTER TRANSFUSION SERVICE REPORT - [...] CDT) Narrative Performed At Epifanio Giles, JUVENAL, COTTON BALER 01/24/20 20 10:52 AM [facility] PFT CHARTING REPORT Infection Control/Hand Hygiene procedure s followed throughout the encounter with patient: Yes Patient Identification Method: Patient n celia verified on armband, and Medical record on armband, Is the order complete?: Yes Account ID#: [id number] Patient Name: Cici Calderon Birthdate: 1955 Age: [...] CDT) Narrative Performed At Epifanio Giles RRT, [facility] 01/24/20 10:52 AM [facility] PFT CHARTING REPORT Infection Control/Hand Hygiene procedure s followed throughout the encounter with patient: Yes Patient Identification Method: Patient n celia verified on armband, and Medical record on armband, Is the order complete?: Yes Account ID#: [id number] Patient Name: Cici Calderon Birthdate: 1955 Age: [...] CDT) Narrative Performed At Epifanio Giles RRT, COTTON BALER 01/24/20 10:52 AM [facility] PFT CHARTING REPORT Infection Control/Hand Hygiene procedure s followed throughout the encounter with patient: Yes Patient Identification Method: Patient n celia verified on armband, and Medical record on armband, Is the order complete?: Yes Account ID#: [id number] Patient Name: Cici Calderon Birthdate: 1955 Age: [...] informed of the ordered study by the phy sician Barriers to performing study or treatme nt: Patient has no known disability to perform the study or treat ment. DISCHARGE The study was completed in accordance wi the physician's order and patient released from the lab withou t adverse outcome. 6 MINUTE WALK(FOR LUNG TRANSPLANT ONLY) (01/24/2020 10:20 AM CDT) Narrative Performed At MeehanJanina garcia [facility] 01/24/20 20 2:39 PM [facility] PFT CHARTING REPORT Infection Control/Hand Hygiene procedure s followed throughout the encounter with patient: Yes Patient Identification Method: Patient n celia verified on armband, and Medical record on armband, Is the order complete?: Account ID#: [id number] Patient Name: Cici Calderon Birthdate: 1955 Age: [...] ABO A Pos SAFETRACE TX UNIT NUMBER [id number] SAFETRACE TX Status TX_TIMEINCHART SAFETRACE TX Blood Bank Product RED BLOOD CELLS SAFETRACE TX PRODUCT CODE [id number] SAFETRACE TX Specimen Other Performing Organization Address [facility] Phone Number SAFETRACE TX B-type Natriuretic Factor (BNP) (01/23/2020 4:32 AM CDT)Only the most recent of 2 resultswithin the time period is included. Pathologist Sig dima BNP 2,179 (H) 0 - 100 pg/mL [facility] Specimen Blood Narrative Performed At Cotton Baler ID - PIAYA L [facility] MED ICAL CENTER Performing Organization Address [facility] Phone Number [facility] MEDICAL [address] [place] [address] CENTER Prepare Leuko-Red PLT (01/22/2020 11:54 PM CDT)Only the most recent of2 results within the time period is included. Pathologist Sig dima Unit ABO A Pos SAFETRACE TX UNIT NUMBER [id number] SAFETRACE TX Status WORK IN PROGRESS SAFETRACE TX Blood Bank Product PLATELETS SAFETRACE TX PRODUCT CODE [id number] SAFETRACE TX Unit ABO O Pos SAFETRACE TX UNIT NUMBER [id number] SAFETRACE TX Status TX_TIMEINCHART SAFETRACE TX Blood Bank Product PLATELETS SAFETRACE TX PRODUCT CODE [id number] SAFETRACE TX Specimen Blood Performing Organization Address [facility] Phone Number SAFETRACE TX Transfuse Leuko-Red RBC (01/22/2020 2:30 PM CDT)Only the most recent of2 resultswithin the time period is included.Cortisol (01/22/2020 8:23 AM CDT)Only the most recent of2 resultswithin the time period is included. Pathologist Sig [employer] Cortisol, Total 1.6 (L) 3.7 - 19.4 ug/dL [facility] Specimen Blood Narrative Performed At Cotton Baler ID - MITCH L [facility] MED ICAL CENTER Performing Organization Address [facility] Phone Number [address] [address] CENTER ABORH, manual (01/22/2020 4:34 AM CDT) Pathologist Sig nature ABO Grouping A [facility] DICAL [place] Rh Factor POS [facility] DICAL [place] Specimen Blood Performing Organization Address [facility] Phone Number [address] [address] Direct AHG (RAMIREZ)/Direct Jewel (01/22/2020 4:34 AM CDT) Pathologist Sig nature Direct AHG-IGG NEGATIVE [facility] Direct AHG-C3B, C3D NEGAT[facility]IE [facility] HE[facility] H [facility] Specimen Blood Performing Organization Address [facility] Phone Number [address] [address] Body fluid culture + gram stain (01/21/2020 4:54 PM CDT) Result No growth [facility] Gram Stain Result <1+ White blood [facility] cells seen [facility] Gram Stain Result No organisms seen [facility] Specimen Body Fluid - Ascites (disorder) Performing Organization Address [facility] Phone Number [address] [address] [place] Body fluid cell count with differential (01/21/2020 4:54 PM CDT) Appearance Hazy (A) Clear [facility] Color Cele (A) Colorless, [facility] RBCs 4,000 (H) <=1 /cu mm [facility]IAL [...] (disorder) Performing Organization Address City/State/Zipcode Phone Number [facility] [address] [place] [address] CENTER US paracentesis (01/21/2020 4:40 PM CDT) Specimen Narrative Performed At FINAL REPORT [employer] Ultrasound guided paracentesis Clinical History: Ascites. Sedation: None. Inspector [employer]: Christine Ward PA-C Supervising Physician: Natan Chisholm MD [employer] Specialist: None. Estimated Blood Loss: < 1 mL. [...] anesthesia was achieved with lidocaine, a 5 Azerbaijani one-step catheter was advanced into the peritoneal cavity under ultrasound guidance. After completion of drainage, the cathet er was removed. There was no evidence of complication. Impression: Successful ultrasound guided paracentesi s. Signed: Natan Chisholm MD Report Verified Date/Time: 01/24/2020 09:43:05 Reading Location: [facility] B1 [id number] Ultrasoun d Reading Room Procedure Note Interface, External Ris In - 01/24/2020 9:45 AM CDT FINAL REPORT Ultrasound guided paracentesis Clinical History: Ascites. Sedation: None. Inspector [employer]: Christine Ward PA-C Supervising Physician: Natan Chisholm MD [employer] Specialist: None. Estimated Blood Loss: < 1 mL. [...] anesthesia was achieved with lidocaine, a 5 Azerbaijani one-step catheter was advanced into the peritoneal cavity under ultrasound guidance. After completion of drainage, the cathet er was removed. There was no evidence of complication. Impression: Successful ultrasound guided paracentesi s. Signed: Natan Chisholm MD Report Verified Date/Time: 01/24/2020 0 9:43:05 Reading Location: [facility] [id number] Ultrasoun d Reading Room Performing Organization Address City/State/Zipcode Phone Number RIS Peripheral Blood Smear - Hold only (01/21/2020 9:31 AM CDT) Pathologist Sig nature Peripheral Smear Save saved [facility] Specimen Blood Performing Organization Address City/State/Zipcode Phone Number [address] [address] CENTER Reticulocyte count (01/21/2020 9:31 AM CDT)Only the most recent of2 results within the time period is included. Pathologist Sig nature % Retic 5.3 (H) 0.5 - 1.7 % [facility] Specimen Blood Narrative Performed At Cotton Baler ID - [id number] [facility] Performing Organization Address City/State/Zipcode Phone Number [facility] MEDICAL [address] [place] [address] CENTER XR chest 1 view [...] Report Verified Date/Time: 01/21/2020 10:03:32 Reading Location: [facility] Reading Room Procedure Note Interface, External [...] Verified Date/Time: 01/21/2020 1 0:03:32 Reading Location: [facility] Reading Room Performing Organization Address City/State/Zipcode Phone Number RIS Metanephrines, 24 hour urine (01/20/2020 10:51 PM CDT) TOTAL VOLUME 1000 mL [facility] Metanephrine 205 90 - 315 [facility] Comment: mcg/24 h INCORPORATED This test was developed and its analytical performance characteristics have been determined by [facility]. It has not been cleared or approved by FDA. This assay has been validated pursuant to the CLIA regulations and is used for clini steven purposes. Normetanephrine [phone] [facility] Comment: mcg/24 h INCORPORATED This test was developed and its analytical performance characteristics have been determined by [facility]. It has not been [...] analytical performance characteristics have been determined by [facility]. It has not been cleared or approved by FDA. This assay has been validated pursuant to the CLIA regulations and is used for clini steven purposes. Specimen Urine Narrative Performed At Performing Lab [facility] [employer] [facility] [address] [place] [address] Mark Encarnacion MD, PhD, AMINA Performing Organization Address City/State/Zipcode Phone Number [facility] [place] [address] INC[facility]PORATED [address] Catecholamines, Fractionated, 24hr urine (01/20/2020 [...] analytical performance characteristics have been determined by [facility]. It has not been cleared or approved by FDA. This assay has been validated pursuant to the CLIA regulations and is used for clini steven purposes. Norepinephrine 9 (L) 15 - 100 [facility] Comment: mcg/24 h INCORPORATED This test was developed and its analytical performance characteristics have been determined by [facility]. It has not been cleared or approved by FDA. This assay has been validated pursuant to the CLIA regulations and is used for clini steven purposes. Calculated Total 9 (L) 26 - 121 [facility] E[facility]Ne Comment: mcg/24 h INCORPORATED This test was developed and its analytical performance characteristics have been determined by [facility]. It has not been [...] analytical performance characteristics have been determined by [facility]. It has not been cleared or approved by FDA. This assay has been validated pursuant to the CLIA regulations and is used for clini steven purposes. Creatinine,24 Hr 0.88 0.50 - 2.15 [facility] Urin g/24 h INCORPORATED Specimen Urine Narrative Performed At Performing Lab [facility] [employer] [facility] [address] [facility] [address] [place] [address] Mark Encarnacion MD, PhD, AMINA Performing Organization Address City/[facility] Phone Number [facility] [place] [address] Type and screen, automated (01/20/2020 8:39 PM CDT)Only the most recent of2 resultswithin the time period is included. Pathologist Sig nature ABO/RH AUTOMATED A POSITIVE [facility] Ab Scrn NEGATIVE [facility] Specimen Blood Performing Organization Address City/State/Zipcode Phone Number [facility] [address] [place] [address] MR abdomen without IV contrast (01/20/2020 5:54 PM CDT) Specimen Narrative Performed At FINAL REPORT [employer] TECHNIQUE: MRI of the abdomen WITHOUT in [...] Report Verified Date/Time: 01/21/2020 07:51:30 Reading Location: [facility] Reading Room - [place] [address] 112 Procedure Note Interface, External Ris In - [...] Verified Date/Time: 01/21/2020 0 7:51:30 Reading Location: [facility] Reading Room - [place] [address] 1129 Performing Organization Address City/State/Zipcode Phone Number [facility] Urinalysis w/Microscopic + Reflex to Culture (01/19/2020 11:19 PM CDT) Color, UA Yellow [facility] Clarity, UA Hazy [facility] Specific [place], 1.017 1.001 - 1.035 [facility] pH, UA 5.5 5.0 - 8.0 MEMORIAL [...] MEDICAL CENTER Specimen Urine Performing Organization Address City/[facility] Cent[facility] Phone Number [address] [address] CENTER Sodium, random urine (01/19/2020 11:19 PM CDT)Only the most recent of3 results within the time period is included. Pathologist Sig nature Sodium Urine <20 meq/L [facility] MED ICAL [place] Specimen Urine Narrative Performed At Reference Range: No Normals [facility] Cotton Baler ID - PIAYA L Performing Organization Address City/[facility]/Zipcode Phone Number [address] [address] [place] Urinalysis w/Microscopic (01/19/2020 11:19 PM CDT)Only the most recent of2 resultswithin the time period is included. Color, UA Yellow [facility] Clarity, UA Hazy [facility] Specific [place], 1.017 1.001 - 1.035 [facility] pH, UA 5.5 5.0 - 8.0 MEMORIAL [...] MEDICAL CENTER Specimen Urine Narrative Performed At Cotton Baler ID - [auto] [facility] Cotton Baler ID - tech Performing Organization Address City/State/Zipcode Phone Number [facility] [address] [place] [address] [place] Blood Culture - Routine (Right Venipuncture) (01/19/2020 9:45 PM CDT)Only the most recent of4 resultswithin the time period is included. Pathologist Sig nature Result No growth in 5 days [facility] Specimen Blood - Entire right upper arm (body str ucture) Performing Organization Address City/[facility]/Zipcode Phone Number [facility] [address] [place] [address] CENTER [id number] PHENOTYP (01/19/2020 9:43 PM CDT) Specimen Blood - Entire right upper arm (body str ucture) Narrative Performed At This result has an attachment that is no t available. Performing Organization Address City/[facility]/Zipcode Phone Number [facility] [address] [place], [place] Blood gas, arterial (01/19/2020 3:44 PM [...] Base Excess, Arterial -1.9 -2.0 - 3.0 [facility] mmol/L [facility] Patient Temperature 36.1 C [facility] FIO2 28.0 % [facility] Specimen Blood, Arterial Performing Organization Address City/[facility] Cent[facility]ode Phone Number [facility] [address] [place] [address] CENTER Cryptococcal antigen (01/19/2020 3:04 PM CDT) Cryptococcal Negative Negative, [facility] Antigen, Serum Interference [facility] Specimen Blood Performing Organization Address City/[facility]/Zipcode Phone Number [facility] [address] [place] [address] CENTER Rubeola antibody IgG (01/19/2020 [...] patient. For additional information, please refer to http://education.Femasys/faq/QQG692 (This link is being provided for informational/ educational purposes only.) Specimen Blood Narrative Performed At Performing Lab [facility] *QDID [facility] [address] [place] [address] Sudhakar Hargrove MD Performing Organization Address City/[facility]/Zipcode Phone Number [place] [address] INCORPORATED [address] [facility] Rubella antibody, IgG (01/19/2020 3:04 PM CDT) Pathologist Sig nature Rubella IgG Quant 127.0 (H) <8.0 IU/mL [facility] Specimen Blood Narrative Performed At Rubella IgG Result Interpretation: [facility] </= 7.0 IU/mL Negative - Presumed non-immune 8.0 - 9.9 IU/mL Equivocal >= 10.0 IU/mL Positive - Presumed immune Performing Organization Address City/State/Zipcode Phone Number [facility] [address] [place] [address] CENTER Varicella zoster antibody, IgG (01/19/2020 3:04 PM CDT) Pathologist Sig nature Varicella IgG 3.6 [facility] Specimen Blood Narrative Performed At VARICELLA ZOSTER RESULT INTERPRETATIONS: [facility] <=0.8 Al Nonreactive: Presumed non-immune to VZV 0.9-1.0 Al Equivocal >=1.1 Al Reactive: Presumed immune to VZV Performing Organization Address City/State/Zipcode Phone Number [facility] [address] [place], [place] [address] CENTER Mumps antibody, IgG (01/19/2020 3:04 PM [...] At Performing Lab [facility] *QDID [facility] [address] [place] [address] Sudhakar Hargrove MD Performing Organization Address City/[facility]/Zipcode Phone Number [place] [address] INCORPORATED [address] [facility] US breast bilateral (01/19/2020 9:10 AM [...] Report Verified Date/Time: 01/19/2020 09:52:28 Reading Location: [address] Mammo Re ading Room Procedure Note [...] Verified Date/Time: 01/19/2020 0 9:52:28 Reading Location: [address] Mammo Re ading Room Performing Organization Address City/[facility] Cent[facility] Phone Number GE RIS Aldosterone (01/19/2020 4:11 AM CDT) Aldosterone 22 ng/dL [facility] Comment: INCORPORATED Adult Reference Ranges for Aldosterone: Upright 8:00-10:00 am < or = 28 ng/dL Upright 4:00-6:00 pm < or = 21 ng/dL Supine 8:00-10:00 am 3-16 ng/dL This test was developed and its analytical performance characteristics have been determined by [facility]. It has not been cleared or approved by FDA. This assay has been validated pursuant to the CLIA regulations and is used for clini steven purposes. Specimen Blood Narrative Performed At Performing Lab [facility] [address] [place] [address] Mark Encarnacion MD, PhD, AMINA Performing Organization Address [facility] Centerconh Phone Number [facility] [place] [address] INCORPORATED [address] [facility] Renin, plasma (01/19/2020 4:11 AM CDT) PRA,LC/MS/MS 1.51 0.25 - 5.82 [facility] Comment: ng/mL/h INCORPORATED This test was developed and its analytical performance characteristics have been determined by [facility]. It has not been cleared or approved by FDA. This assay has been validated pursuant to the CLIA regulations and is used for clini steven purposes. Specimen Blood Narrative Performed At Performing Lab [employer] [facility] [address] [place] [address] Mark Encarnacion MD, PhD, AMINA Performing Organization Address City/State/Zipcode Phone Number [facility] [place] [address] INCORPORATED [address] [facility] abdomen without IV contrast (01/19/2020 12:40 AM CDT) Specimen Narrative Performed At FINAL REPORT [employer] TECHNIQUE: CT of the abdomen WITHOUT int [...] Report Verified Date/Time: 01/19/2020 08:09:04 Reading Location: [facility] Reading Room - [place] [address]9 Procedure Note Interface, External Ris In [...] Verified Date/Time: 01/19/2020 0 8:09:04 Reading Location: [facility] [employer] Reading Room - [place] [address] Performing Organization Address City/State/Zipcode Phone Number [employer] US renal complete (01/19/2020 12:20 AM CDT) Specimen Narrative Performed At FINAL REPORT [employer] Ultrasound of the Kidneys Clinical History: Re-examine [...] - Urine, Sterile Collection Narrative Performed At Cotton Baler ID - EDWIN B [facility] MED ICAL CENTER Performing Organization Address City/[facility]/Zipcode Phone Number [address] [address] [place] Creatinine, random urine (01/18/2020 8:49 PM CDT)Only the most recent of2 resultswithin the time period is included. Pathologist Sig nature Creatinine, Ur 181.3 mg/dL [facility] EDICAL [place] Specimen Urine - Urine, Sterile Collection Narrative Performed At Reference Range: No Normals [facility] Cotton Baler ID - EDWIN B Performing Organization Address [facility] Phone Number [address] [address] [place] Eosinophil smear (01/18/2020 8:49 PM CDT) Pathologist Sig nature Eosinophil Smear Rare EOS =less No EOS seen [facility] than 5% WBCs [facility] seen are EOS (A) [place] Specimen Urine - Urine, Sterile Collection Performing Organization Address [facility] Phone Number [address] [address] [place] Myocardial Perfusion Pet/CT (Rest & Stress) (01/18/2020 9:20 AM CDT) Specimen Narrative Performed At FINAL REPORT [employer] PROCEDURE: MYOCARDIAL PERFUSION PET IMAG ING (Rest/Stress) CPT CODE: 70548 INDICATION: Evaluation for liver transpl ant CARDIOVASCULAR [...] Report Verified Date/Time: 01/18/2020 12:45:40 Reading Location: [address] Med Reading Room Procedure Note Interface, External Ris In - 01/18/2020 12:47 PM CDT FINAL REPORT PROCEDURE: MYOCARDIAL PERFUSION PET IMAG ING (Rest/Stress) CPT CODE: 19142 INDICATION: Evaluation for liver transpl ant CARDIOVASCULAR [...] Date/Time: 01/18/2020 1 2:45:40 Reading Location: [address] P327B [facility] Reading Room [...] Exercise midodrine Confirmed by fellow Bc Chávez ([id number]) o n 01/18/2020 9:20:19 AM Confirmed by [...] 452 ms QTC Calculation(Bazett) 458 ms P Onia 59 degrees R Onia 32 degrees T Onia 56 degrees Normal sinus rhythm Low voltage [...] 452 ms QTC Calculation(Bazett) 458 ms P Onia 59 degrees R Onia 32 degrees T Onia 56 degrees Normal sinus rhythm Low voltage QRS Nonspecific ST abnormality 17 JAN 2020 11:05 Nonspecific T wave abnormality Nonspecif ic T wave abnormality, improved in QT has shortened Confirmed by MD DOUGHERTY YOCHAI ([id number]) on 01/18/2020 2:19:38 PM Performing Organization Address City/State/[facility] Cent[facility] Phone Number GE MUSE T [...] is no t available. Performing Organization Address City/[facility] Phone Number [employer] DI[facility] [address] [place] [address] [address] REPORT OF PROCEDURE - [...] nature Case Report Surgical Pathology Report Case: [id number] I [facility]' Authorizing Provider: Sylvie George MD Collected: 01/17/2020 08:15 AM [facility] Ordering Location: [address] Received: 01/17/2020 01:50 PM MEDICAL CENTER Service Pathologist: Humaira Mendez MD Specimen: Duodenum, bio psy ADDENDUM THIS ADUODENUMIS ISSUED TO R EPORT THE FINDINGS IN THE DEEPER LEVELS OF THE BIOPSY AND GIVE THE FINAL DIAGNOSIS: [facility] Addendum [facility] electronically signed DUODENUM, ENDOSCOPIC BIOPSY: MEDICAL PARVIN TER by Humaira Mendez - ECTATIC VESSELS IN THE LAMINA PROPRIA, SUGGESTIVE OF PORTAL DUODENOPATHY MD Siva on - NO FEATURES OF CELIAC DISEASE SEEN 01/19/2020 at 4:12 PM - NO GRANULOMAS, DYSPLASIA OR MALIGNANCY SEEN DIAGNOSIS DUODENUM, ENDOSCOPIC BIOPSY: [facility] Electronically signed - SUPERFICIAL FRAGMENTS OF SMALL BOWEL MUCOSA WITH GASTRIC FOVEOLAR METAPLASIA [facility] by [facility] MD Siva o n 01/18/2020 at 3 :50 PM Signing Pathologist Direct Phone Line: CPT Code(s) 87391 [facility] CLINICAL HISTORY Procedure: upper endoscopy, biopsy and colonosc opy [facility] Pre and postop diagnosis: anemia [facility] SPECIMEN SOURCE A. Duodenum; biopsy [facility] GROSS DESCRIPTION A. The specimen is [facility] received in [facility] with the patient's name, accession number and "duodenum" and consists of one garduno-pink mucosal-covered pieces of tissue measuring 0.3 x 0.2 x 0.1 cm. The specimen is submitted entirely following filtration in a cassette A1. HS/pl MICROSCOPIC PERFORMED [facility] Specimen Tissue - Duodenal structure (body struct ure) Performing Organization Address City/State/Zipcode Phone Number [place] [phone] [place] [address] CENTER Lactate dehydrogenase (LDH) (01/16/2020 12:24 PM CDT) Pathologist Sig nature LDH 250 (H) 125 - 220 U/L [facility] Specimen Blood Narrative Performed At [employer] MABLE Mera [facility] MED ICA CENTER Performing Organization Address City/[facility]/Zipcode Phone Number [address] [address] CENTER Vitamin B12 and Folate (01/16/2020 11:25 AM CDT) Pathologist Sig nature Vitamin B12 1,107 (H) 213 - 816 pg/mL [facility] Folate 3.40 (L) >=7.00 ng/mL [facility] Specimen Blood Narrative Performed At [facility] ID - NTP [facility] Performing Organization Address City/[facility] Cent[facility]ode Phone Number [address] [address] CENTER HIV-1 Antigen with HIV-1/2 Antibody (01/16/2020 11:25 AM CDT) Pathologist Sig nature HIV-1 Antigen with Nonreactive Nonreactive [facility] HIV 1&2 Antibody [facility] Specimen Blood Narrative Performed At [facility] ID - TUAN C [facility] Performing Organization Address City/[facility] Cent[facility]ode Phone Number [address] [address] CENTER Haptoglobin (01/16/2020 11:25 AM CDT) Pathologist Sig nature Haptoglobin <8 (L) 14 - 258 mg/dL [facility] Specimen Blood Narrative Performed At [employer] ID - TUAN C [facility] Performing Organization Address City/[facility] Cent[facility]ode Phone Number [address] [address] CENTER US abdominal with doppler (01/16/2020 6:30 AM CDT) Specimen Narrative Performed At FINAL REPORT [employer] ULTRASOUND ABDOMEN COMPLETE, ULTRASOUND DUPLEX DOPPLER HISTORY: [...] Report Verified Date/Time: 01/16/2020 07:32:01 Reading Location: [address] Reading Room Procedure Note Interface, External [...] Verified Date/Time: 01/16/2020 0 7:32:01 Reading Location: [address] Reading Room Performing Organization Address City/[facility]/Zipcode Phone Number [employer] Drug screen, urine, transplant (01/15/2020 9:52 PM CDT) Specimen Urine Narrative Performed At This result has an attachment that is no t available. Performing Organization Address [facility] Centercode Phone Number [place] [phone] [place] [address] Blood typing, automated - - at seperate draw time from initial type and screen (01/15/2020 6:16 PMCDT) Pathologist Sig nature ABO/RH AUTOMATED A POSITIVE [facility] Specimen Blood Performing Organization Address City/[facility]/Zipcode Phone Number [facility] [address] [place] [address] CT chest without IV contrast (01/15/2020 5:54 PM CDT) Specimen Narrative Performed At FINAL REPORT [employer] CT of the chest, without contrast [...] Report Verified Date/Time: 01/15/2020 17:57:54 Reading Location: [address] Reading Room Procedure Note Interface, External [...] Verified Date/Time: 01/15/2020 1 7:57:54 Reading Location: [address] Ortho Con sult Reading Room Performing Organization Address City/State/Zipcode Phone Number [employer] RIS XR chest 2 views (01/15/2020 4:57 PM CDT) Specimen Narrative Performed At FINAL REPORT [employer] History: Cirrhosis, liver transplant shama luation [...] Report Verified Date/Time: 01/15/2020 17:16:49 Reading Location: [address] [facility] [...] Verified Date/Time: 01/15/2020 1 7:16:49 Reading Location: [address] Reading Room Performing Organization Address [facility] Centerconh Phone Number GE RIS XR mandible min 4 views (01/15/2020 4:39 PM CDT) Specimen Narrative Performed At FINAL REPORT [facility] MANDIBLE 4 VIEWS HISTORY: Cirrhosis, liver transplant [...] Report Verified Date/Time: 01/15/2020 17:22:12 Reading Location: [address] Reading Room Procedure Note Interface, External [...] Verified Date/Time: 01/15/2020 1 7:22:12 Reading Location: [address] Reading Room Performing Organization Address [facility]/Zipcode Phone Number RIS Mitochondria M2 Antibody (IgG) (01/15/2020 4:17 PM CDT) Mitochondria M2 Ab <20.0 See Note: U [facility] Comment: INCORPORATED Reference Range: NEGATIVE: < OR = 20.0 EQUIVOCAL: 20.1-24.9 POSITIVE: > OR = 25.0 Specimen Blood Narrative Performed At Performing Lab [facility] EZ [employer] [facility] [address] [place] [address] Mark Encarnacion MD, PhD, AMINA Performing Organization Address City/[facility]/Zipcode Phone Number [place] [address] INCORPORATED [address] [facility] Iron, TIBC, % sat. (without ferritin) (01/15/2020 4:17 PM CDT) Pathologist Sig nature Iron 144.0 40.0 - 160.0 [facility] ug/dL [facility] TIBC 129 (L) 250 - 450 ug/dL [facility] Iron % Saturation 112 (H) 20 - 55 % [facility] Specimen Blood Narrative Performed At [employer] ID - DB [facility] Performing Organization Address [facility] Centerconh Phone Number [address] [address] CENTER Hepatitis C antibody (01/15/2020 4:17 PM CDT) Pathologist Sig nature Hepatitis C Ab Nonreactive Nonreactive [facility] Specimen Blood Narrative Performed At [employer] ID - DB [facility] Performing Organization Address [facility] Phone Number [address] [address] CENTER Cytomegalovirus antibody, IgM (01/15/2020 4:17 PM CDT) Pathologist Sig nature CMV IGM Negative Negative, Equivocal [facility] Specimen Blood Narrative Performed At CMV IgM Result Interpretation: [facility] </= 0.8 Al Negative 0.9-1.0 Al [employer] >/= 1.1 Al Positive Performing Organization Address [facility] Centerconh Phone Number [address] [address] CENTER Actin (Smooth Muscle) Antibody, [...] Lab [facility] [address] [place] [address] Mark Encarnacion MD, PhD, AMINA Performing Organization Address City/[facility]/Zipcode Phone Number [place] [address] INCORPORATED [address] [facility] [id number] (01/15/2020 4:17 PM CDT) Pathologist Sig nature A-1 Antitrypsin 121.20 90.00 - 200.00 [facility] mg/dL [facility] Specimen Blood Narrative Performed At [employer] ID - DB [facility] Performing Organization Address [facility] Centercode Phone Number [address] [address] CENTER Hepatitis A antibody, IgM (01/15/2020 4:17 PM CDT) Pathologist Sig nature Hep A IgM Nonreactive Nonreactive [facility] Specimen Blood Narrative Performed At [employer] ID - DB [facility] Performing Organization Address [facility] Centercode Phone Number [facility] [address] [place] [address] CENTER Carbohydrate antigen 19-9 ([place] [...] Lab [facility] [place] [address] [place] [address] Mark Encarnacion MD, PhD, AMINA Performing Organization Address City/[facility] Centercode Phone Number [place] [address] INCORPORATED [address] [facility] Ceruloplasmin (01/15/2020 4:17 PM CDT) Pathologist Sig nature Ceruloplasmin 21 18 - 53 mg/dL [facility] JERAMY Specimen Blood Narrative Performed At Performing Lab [facility] *BEATRIZ [employer] [facility], [address] [place] [phone] Jorje Jauregui MD, PhD Performing Organization Address [facility] Centerconh Phone Number [place] [address] INCORPORATED [address] [facility] Zinc (01/15/2020 4:17 PM CDT) Zinc 39 (L) 60 - 130 [facility] Comment: mcg/dL INCORPORATED This test was developed and its analytical performance characteristics have been determined by [employer]. It has not been cleared or approved by [facility] FDA. This assay has been validated pursuant to the CLI A regulations and is used for clinical purposes. Specimen Blood Narrative Performed At Performing Lab [facility] *BEATRIZ [facility], [address] [place] [phone] Jorje Jauregui MD, PhD Performing Organization Address City/[facility] Centercode Phone Number [place] [address] INCORPORATED [address] [facility] Hepatitis B core antibody, IgM (01/15/2020 4:17 PM CDT) Pathologist Sig nature Hep B C IgM Nonreactive Nonreactive [facility] Specimen Blood Narrative Performed At [employer]er ID - DB [facility] MED ICAL CENTER Performing Organization Address City/State/Zipcode Phone Number [facility] MEDICAL [address] [place] [address] CENTER EBV-VCA antibody, IgM (01/15/2020 4:17 PM CDT) GABRIEL CHING VIRAL Negative Negative, Equivocal [facility] CAPSID ANTIGEN IGM [facility] Specimen Blood Narrative Performed At Gabriel Ching Viral Capsid Antigen IgM Result [facility] Interpretation: </= 0.8 Al Negative 0.9-1.0 Al Equivocal >/= 1.1 Al Positive Performing Organization Address [facility] Centercode Phone Number [address] [address] CENTER EBV-VCA antibody, IgG (01/15/2020 4:17 PM CDT) GABRIEL CHING VIRAL Positive (A) Negative, [facility] CAPSID ANTIGEN IGG Equ[employer] [facility] Specimen Blood Narrative Performed At Gabriel Ching Viral Capsid Antigen IgG Result [facility] Interpretation: </= 0.8 Al Negative 0.9-1.0 Al Equ[employer]ocal >/= 1.1 Al Positive Performing Organization Address [facility] Phone Number [address] [address] [place] Hepatitis B core antibody, total (01/15/2020 4:17 PM CDT) Pathologist Sig nature Hep B Core Total Ab Nonreactive Nonreactive [facility] Specimen Blood Narrative Performed At [employer] MABLE Downs [facility] MED ICAL CENTER Performing Organization Address [facility] Phone Number [address] [address] CENTER Vitamin D, 25-Hydroxy (01/15/2020 4:17 PM CDT) Pathologist Sig nature Vitamin D 25-Hydroxy 6.2 (L) 6.6 - 49.9 ng/mL [facility] Specimen Blood Narrative Performed At Effective 05/07/2017: Reference Range Ch von [facility] New: 6.6-49.9 ng/mL Previous: 13.0-47.8 ng/mL Recommended Vitamin D Target Range: 30.0-40.0 ng/mL [employer] ID - DB Performing Organization Address [facility]/Zipcode Phone Number [address] [address] CENTER RPR (01/15/2020 4:17 PM CDT) Pathologist Sig nature RPR Nonreactive Nonreactive [facility] Specimen Blood Performing Organization Address [facility] Center[facility] Phone Number [address] [address] CENTER Hepatitis B surface antibody (01/15/2020 4:17 PM CDT) Pathologist Sig nature Hep B S Ab 25.0 (H) <8.0 mIU/mL [facility] Specimen Blood Narrative Performed At Cotton [employer]er ID - DB [facility] ICAL [place] Performing Organization Address [facility] Phone Number [address] [address] [place] Hepatitis B surface antigen (01/15/2020 4:17 PM CDT) Pathologist Sig nature HBsAg Screen Nonreactive Nonreactive [facility] Specimen Blood Narrative Performed At Specimen is considered negative for HBsAg. [facility] Performing Organization Address [facility] Phone Number [address] [address] [place] Cytomegalovirus antibody, IgG (01/15/2020 4:17 PM CDT) CYTOMEGALOVIRUS, Positive (A) Negative, [facility] IGG Equivocal [facility] Specimen Blood Narrative Performed At CMV IgG Result Interpretation: [facility] </= 0.8 Al Negative 0.9-1.0 Al [employer] >/=1.1 Al Positive Performing Organization Address [facility] Centercode Phone Number [address] [address] CENTER aPTT (01/15/2020 4:17 PM CDT) Pathologist Sig nature PTT 36.8 (H) 22.5 - 36.0 seconds [facility] Specimen Blood Performing Organization Address City/[facility] Centercode Phone Number [address] [address] [place] Fibrinogen (01/15/2020 4:17 PM CDT) Pathologist Sig nature Fibrinogen 114 (L) 225 - 434 mg/dl [facility] Specimen Blood Performing Organization Address [facility] Centercon[facility] Phone Number [address] [address] [place] Anti-Nuclear Antibody (REILLY) (01/15/2020 4:17 PM CDT) Pathologist Sig critical [facility] REILLY Negative Negative [facility] ICAL [place] Specimen Blood Narrative Performed At Test performed by IFA method. [facility] Test performed by IFA method. Performing Organization Address [facility] Phone Number [address] [address] CENTER T3 (01/15/2020 4:17 PM CDT) Pathologist Sig [facility] T3, Total 51 48 - 159 ng/dL [facility] Specimen Blood Narrative Performed At This result has an attachment that is no t available. Performing Organization Address [facility] Phone Number [facility] [address] [place] Transferrin (01/15/2020 4:17 PM CDT) Pathologist Sig nature Transferrin 102 (L) 174 - 382 mg/dL [facility] Specimen Blood Narrative Performed At [employer] ID - DB [facility] Specimen moderately icteric Performing Organization Address [facility] Center[facility] Phone Number [address] [address] CENTER TSH (01/15/2020 4:17 PM CDT) Pathologist Sig nature TSH 5.549 (H) 0.350 - 4.940 uIU/mL [facility] Specimen Blood Narrative Performed At [employer] ID - DB [facility] Performing Organization Address City/[facility]/Zipcode Phone Number [address] [address] CENTER T4 (01/15/2020 4:17 PM CDT) Pathologist Sig nature T4, Total 4.3 (L) 4.9 - 11.7 ug/dL [facility] Specimen Blood Narrative Performed At [employer] ID - NTP [facility] Performing Organization Address City/[facility] Centercode Phone Number [address] [address] CENTER Hemoglobin A1c (01/15/2020 4:17 PM CDT) Pathologist Sig nature Hemoglobin A1C <3.8 (L) 4.3 - 6.1 % [facility] Specimen Blood Performing Organization Address [facility] Centercode Phone Number [address] [address] CENTER Ferritin (01/15/2020 4:17 PM CDT) Pathologist Sig nature Ferritin 489.86 (H) 5.00 - 275.00 ng/mL [facility] Specimen Blood Narrative Performed At [employer] ID - NTP [facility] Performing Organization Address City/[facility] Centercode Phone Number [address] [address] CENTER Carcinoembryonic Antigen (CEA) (01/15/2020 4:17 PM CDT) Pathologist Sig nature CEA, SERUM 7.9 (H) 0.0 - 5.0 ng/mL [facility] Specimen Blood Narrative Performed At [employer] ID - DB [facility] Performing Organization Address City/[facility] Centercode Phone Number [address] [address] [place] Ethanol (01/15/2020 4:17 PM CDT) Pathologist Sig nature Ethanol Lvl <10 <=10 mg/dL [facility] Specimen Blood Narrative Performed At [employer] ID - DB [facility] Performing Organization Address City/State/Zipcode Phone Number [address] [address] [place] 2D Echo W/Doppler(CW/PW/Color) (01/15/2020 2:45 PM CDT) Pathologist Sig nature Ejection Fraction [facility] ECHO [facility]ART[facility] Specimen Narrative Performed At Transthoracic Echocardiography Report (T TE) [facility] ECHO HEARTLAB [facility] Demographics Patient Name CICI CALDERON Date of Study 01/15/2020 ALYSE Gender Female Visit Number [id number] Race Unknown Room Number 1515 Number Date of 1955 Referring Physician Ren Hernandez MD Age 64 year(s) Delivery And Installation Subcontractor Lisa Bautista [facility] S Interpreting Jai grajeda MD Physician [...] Study 01/15/2020 ALYSE Gender Female Visit Number [id number] Race Unknown Room [place] [id number] Number Date of 1955 [facility] Ren Hernandez MD Age 64 [...] l/min/m^2 Performing Organization Address City/State/Zipcode Phone Number [facility] Carotid doppler bilateral (01/15/2020 2:41 PM CDT) Pathologist Sig nature Ejection Fraction COUNT INCLUDES THE [facility] Specimen Impressions Performed At Right Impression [facility] 1. The internal, common and [...] Performed At LAB - Carotid Duplex Study [facility] ECHO HEARTLAB [facility] Demographics Patient Name CICI CALDERON Date of Study 01/15/2020 ALYSE Age 64 Visit Number [id number] Gender Female Accession Number [id number] Date of 1955 Referring [facility] Room Number 1515 Physician Delivery And Installation Subcontractor Herbert Lechuga Interpreting Chelsea Resendez T Physician [...] Study 01/15/2020 ALYSE Age 64 Visit Number [id number] Gen margarita Female Accession Number [id number] Ramirez e of 1955 Referring Eliecer Shady Todd m Number 1515 Physician Delivery And Installation Subcontractor Herbert Lechuga [facility] Chelsea Resendez, [facility] Alvin foss MD Procedure Type of Study: [...] Measurements:ICAPSV/CCAPS V 0.96.ICAEDV/CCAEDV 1.52. Performing Organization Address City/State/[facility] Centercode Phone Number [facility] ECHO HEARTLAB MKCKESSON CPACS Hepatitis panel, acute (01/15/2020 8:32 AM CDT) Pathologist Sig nature Hep A IgM Nonreactive Nonreactive [facility] Hep B C IgM Nonreactive Nonreactive [facility] Hepatitis C Ab Nonreactive Nonreactive [facility] HBsAg Screen Nonreactive Nonreactive [facility] Specimen Blood Narrative Performed At [facility]er ID - [facility] Performing Organization Address [facility] Phone Number [address] [address] CENTER Ammonia (01/15/2020 8:32 AM CDT) Pathologist Sig nature Ammonia 19 18 - 72 mol/L [facility] Specimen Blood Narrative Performed At [facility] [employer]er ID - [facility] Performing Organization Address [facility] Centercode Phone Number [place] [phone] [place] [address] CENTER Uric acid (01/15/2020 3:56 AM CDT) Pathologist Sig nature Uric Acid 15.7 (H) 2.6 - 7.2 mg/dL [facility] Specimen Blood Narrative Performed At [facility] [employer] ID - [facility] Specimen moderately icteric Performing Organization Address City/[facility] Centercode Phone Number [address] [address] CENTER Gamma Glutamyl Transferase (GGT) (01/15/2020 3:56 AM CDT) Pathologist Sig nature GGT 15 9 - 64 U/L [facility] Specimen Blood Narrative Performed At [employer] ID - NTP [facility] Specimen moderately icteric Performing Organization Address [facility] Centercode Phone Number [address] [address] [place] Lipid panel (01/15/2020 3:56 AM CDT) Pathologist Sig nature Triglycerides 86 mg/dL [facility] DICAL [place] Cholesterol 101 mg/dL [facility] ICAL [place] HDL 12 mg/dL [facility] ICAL [place] LDL Calculated 72 mg/dL [facility] EDICAL [place] Specimen Blood Narrative Performed At Triglyceride Reference Range: [facility] Low Risk <150 Borderline 150-199 High Risk 200-499 Very High Risk >=500 Cholesterol Reference Range: Low Risk <200 Borderline 200-239 High Risk >240 HDL Cholesterol Reference Range: Low Risk >=60 High Risk <40 LDL Cholesterol Reference Range: Optimal <100 Near Optimal 100-129 Borderline 130-159 High 160-189 Very High >=190 [employer] ID - NTP Specimen moderately icteric Performing Organization Address City/[facility] Centercode Phone Number [phone] [place] SARS-CoV2/RT-PCR (Asymptomatic ONLY) (01/14/2020 7:28 PM CDT) SARS-COV2/RT-PCR Not Detected Not Detected, [facility] SARS-COV-[address] [facility] Specimen Other - Nasopharyngeal wall structure (b arsenio structure) Narrative Performed At Negative results do not preclude SARS-CoV-2 [facility] infection and should not be used as [...] the Act. Fact Sheet for Healthcare Providers: https://www.Glanse/Documents/Xpert%20Xpre ss%20SARS%20CoV-2/Fact%20Sheets/3023802%20SAR S-COV-2%20HEALTHCARE%20PROVIDERS%20FACT%20SHEE T.pdf Fact Sheet for Healthcare Patients: https://www.Glanse/Documents/Xpert%20Xpre ss%20SARS%20CoV-2/Fact%20Sheets/3023801%20SAR S-COV-2%20PATIENT%20FACT%20SHEET.pdf Performing Laboratory: [address] [place] [address] Performing Organization Address City/State/Zipcode Phone Number [facility] MEDICAL [address] [place] [phone] CENTER after 07/18/2019 Insurance Payer Benefit Plan / Subscriber ID Effective Dates Phone Addre ss Type Group AETNA - AETNA MEDICARE [id number] 2019-Preszion [phone] [address] MEDICARE MGD HMO POS PPO t [id number] [place] [address] Advance Directives For more information, please contact: [phone] Code Status Date Activated Date Inactivated Comments Full Code 01/14/2020 8:09 PM 01/26/2020 8:41 PM This code status was determined by: Patient
--- OUTSIDE RECORDS SUMMARY | 2020-07-18 08:24 | XMS REPORT | Continuity of Care Document ---
:1955 Author Organization [facility] t Address [address] [place] [address] Care Team Providers Name Role Phone Nahun Leonard MD Primary Care Physician Mayank ESPINOSA, R Attending Clinician Unavailable Nhi Montgomery MD Attending Clinician Baltazar Hernandez Attending Clinician Unavailable Rl Attending Clinician Unavailable Alfonso Attending Clinician Unavailable Yuriy Cartagena MD Attending Clinician Nhi MONTGOMERY [...] Clinician Unavailable Prabha Fortune MD Attending Clinician PARBHA FORTUNE Attending Clinician Unavailable Yaneli ESPINOSA Attending Clinician Unavailable Holli Borden MD Attending Clinician Joshua ADRIAN Attending Clinician Niraj MARCUS Attending Clinician Unavailable Markus ESPINOSA Attending Clinician Unavailable TONIA STONE Admitting Clinician Unavailable Joshua ADRIAN Admitting Clinician Payers Payer Name Policy Type Policy Number Effective Date Expiration Date Holli plunkett AET - [id number] [address] [facility] MEDICARE MGD 00:00:00 - Medical CAREAETNA Center MEDICARE HMO POS [id number], [place] [address] Problems Condition Condition Condition Status Onset Resolution Last Treating Co mments Source Name Details Category Date Date Treatment Clinician Date Awaiting Awaiting Disease Active 2019-[facility] transplant 00:00: Me dical status status 00 Center Acute Acute Disease Active [facility] liver liver 6-19 [facility] - failure failure 00:00: Medical 00 [place] Elevated Elevated Disease Active [facility] serum serum 6-16 [facility] - creatinine creatinine 00:00: Me dical 00 Center Other Other Disease Active [facility] ascites ascites 6-16 [facility] - 00:00: Medical 00 [place] Cirrhosis Cirrhosis Disease Active 2015-07 Last [facility] [...] annual incidence of 1.5-7%. We recommend surveilla cte for HCC with abdominal imaging and alphafeto protein every 6 months. MRI in April 2016 was negative for any suspiciou s lesions in the liver. AFP 03/28/16 is 4.0. Adrenal Adrenal Disease Active 2015-[address] mass, left mass, left 09-01 Assessmen Lu - 00:00: t & Plan: [...] Allergy 09-01 [facility] - 00:00: Medical 00 [place] Levoflox Drug Active Other (See 2015-[address] acin Intolera Comments) 09-01 and [facility] - nce 00:00: diarrhea Medical 00 Center Sulfa Drug Active Rash 2015-[address] [facility] ([place]ulf[place] Allergy 09-01 [facility] - mide 00:00: Medical Antibiot 00 Center ics) Tetracyc Drug Active Hives 2015-[address] [facility] lines Allergy 09-01 [facility] - 00:00: Medical 00 [place] Tetracyc Adverse Active hives [facility] line HCl Reaction [facility] Levaquin Adverse Active vomiting/jocy [facility] Erythrom Adverse Active vomiting/jocy [facility] ycin Reaction rrhea [facility] Family History Family Member Diagnosis Comments Start Date Stop Date Source Natural brother Diabetes [facility] Natural brother Hypertension [facility] Natural brother Arthritis [facility] Natural brother COPD [facility] Natural father Diabetes [facility] Natural father Heart disease [facility] Natural mother Diabetes [facility] Natural mother Heart disease [facility] Natural sister Cancer [facility] Social History Social Habit Start Date Stop Date Quantity Comments Source Sex Assigned At [facility] Tobacco use and 2020-04-11 2020-04-11 Never used [facility] - exposure 00:00:00 00:00:00 [facility] Alcohol intake 2020-04-11 2020-04-11 Current drinker YAIMA Arteaga - 00:00:00 00:00:00 of alcohol [facility] (finding) Alcohol Comment 2016-07-01 2016-07-01 social last drink LETTY Medina - 00:00:00 00:00:00 06/15/16 [facility] Smoking Status Start Date Stop Date Source Former smoker 2020-04-11 00:00:00 2020-04-11 00:00:00 [facility] Medications Ordered Filled Start Stop Current Ordering Indication Dosage Frequency Signature Comments Components Source Medication Medication Date Date Medication? Clinician (SIG) Name Name ergocalcife 2019-07- Yes Vitamin D 00663Y Q7D Take [address] [facility] rol 2-18 18 deficiency capsule [facility] - (ERGOCALCIF 00:00: 23:59 (50,000 Me dical MARIN) 1,250 00 :00 Units Center mcg (50,000 total) by unit) mouth once capsule a week. spironolact 2019-0 Yes 25mg QD Take [address] [facility] one 9-15 by mouth [facility] - (ALDACTONE) 09:45: daily. Medi steven 25 MG 26 Center tablet magnesium 2019-0 Yes Magnesium 400mg QD Take [address] [facility] oxide 9-15 deficiency tablet [facility] - (MAG-OX) 00:00: (400 mg Medica l 400 mg 00 total) by [place] (241.3 mg mouth magnesium) daily. tablet calcitrioL 2019-0 Yes Cirrhosis .5ug QD Take [address] (ROCALTROL) 9-15 of liver capsule L ukes - 0.5 MCG 00:00: without (0.5 mcg Med ical capsule 00 ascites, total) by [facility] ter unspecified mouth hepatic daily. cirrhosis type (HCC) folic acid 2020- No Cirrhosis 1mg QD Take [address] (FOLVITE) 1 9-15 09-15 of liver tablet (1 [facility] - MG tablet 00:00: 23:59 without mg total) Medical 00 :00 ascites, by mouth Center unspecified daily. hepatic cirrhosis type (HCC) ergocalcife 2019-0 2020- No Vitamin D [id number] Q7D Take [address] [facility] [address] rol 04-11 12-18 deficiency capsule [facility] - (ERGOCALCIF 00:00: 00:00 (50,000 Me dical MARIN) 1,250 00 :00 Units Center mcg (50,000 total) by unit) mouth once capsule a week. ranitidine 2019-2019- No Screening 150mg Take [address] (ZANTAC) 02-14 for mg by [facility]ukes - 150 MG 11:22: 00:00 malignant mouth as M edical capsule 35 :00 neoplasm needed Center (every 8 hours- as antihistam ine by PCP). rifAXIMin 2019-2019- No Hepatic 550mg Q.5D Take [address] 550 mg Tab 02-02 encephalopa tablet [facility] - 00:00: 00:00 thy (HCC) (550 mg Medi steven 00 :00 total) by Center mouth 2 (two) times daily. ergocalcife 2019-0 2020- No [id number] Q7D Take [address] rol [...] mouth Center tablet daily. folic acid 2019-0 2019- No 1mg QD Take [address] (FOLVITE) 1 01-26-15 tablet (1 Fe kes - MG tablet 00:00: 00:00 mg total) Me dical 00 :00 by mouth Center daily. furosemide 2019-0 2020- No 40mg Q.5D Take [address] (LASIX) 20 01-25 by mouth 2 Fe kes - MG tablet 16:18: 00:00 (two) Medica l 24 :00 times Center daily . spironolact 2019-0 2020- No 25mg QD Take [address] one 01-25 by mouth [facility]ukes - (ALDACTONE) 16:18: 00:00 daily. Med ical 25 MG 24 :00 Center tablet calcitrioL 2020- No .5ug QD Take 0.[address] (ROCALTROL) 01-25 mcg by [facility]ukes - 0.5 MCG 16:16: 00:00 mouth Medical capsule 08 :00 daily. Center rifAXIMin Yes 550mg Q.5D Take 1 [facility] t 550 mg Tab 01-25 tablet [facility]ukes - 00:00: (550 mg Medical 00 total) by Center mouth 2 (two) times daily. lactulose 0 Yes 20g Q.[id number] Take [address] (CHRONULAC) 01-25 [id number] mLs (20 g [facility]ukes - 20 gram/30 00:00: 3D total) by Ia dical mL solution 00 mouth 3 Cente [...] magnesium) daily. tablet midodrine 2020- No 2.5mg Q.[id number] Take [address] (PROAMATINE 01-25 [id number] tablet [facility] - ) 2.5 MG 00:00: [...] Max Daily Amount: 200 mg Albuterol Albuterol 2019- Yes Mitzy [address] Sulfate HFA Sulfate HFA 4-09 [place] needed [facility] - 00:00: [facility] Cimetidine Cimetidine Yes Mitzy [address] [facility] [address] [place] as needed [facility] - [facility] Calcitriol Calcitriol Yes Mitzy [address] [place] [facility] Lactulose Lactulose Yes Mitzy [address] [place] [facility] Xifaxan Xifaxan Yes Mitzy [address] [place] [facility] Folic Acid Folic Acid Yes Mitzy [address] [place] [facility] Spironolact Spironolact Yes Mitzy [address] one one [place] [facility] - [facility] Vitamin D2 Vitamin D2 Yes Mitzy [address] [place] [facility] MagOx 400 MagOx 400 Yes Mitzy [address] [place] with food [facility] Tramadol Tramadol Yes Mitzy [address] HCl HCl [place] as needed [facility] Midodrine Midodrine Yes Mitzy [address] HCl HCl [place] [facility] Pantoprazol Pantoprazol Yes Mitzy [address] e Sodium e Sodium [place] mixed with Lukes - apple Memoria juice or l applesauce [facility] ent Clinics Immunizations Ordered Filled Immunization Date Status Comments [facility] e Immunization Name Name Hepatitis A (adult) Hepatitis A (adult) 2020-02-[address] [facility] - 00:[facility]00 [facility] Hepatitis B (adult) Hepatitis B (adult) 2020-02-[address] [facility] - [facility] Vital Signs Vital Name Observation Time Observation Value Comments Source Systolic blood 2020-04-11 09:39:00 104 mm[Hg] [facility] Diastolic blood 2020-04-11 09:39:00 43 mm[Hg] [facility] Heart rate 2020-04-11 09:39:00 85 /min [facility] Body temperature 2020-04-11 09:39:00 36.28 Shaneka [facility] Respiratory rate 2020-04-11 09:39:00 18 /min [facility] Body height 2020-04-11 09:39:00 162.6 cm [facility] Body weight 2020-04-11 09:39:00 84.959 kg [facility] BMI 2020-04-11 09:39:00 32.15 kg/m2 [facility] Oxygen saturation in 2020-04-11 09:39:00 95 /min [facility] - Arterial blood by Medical Ce nter Pulse oximetry Procedures Procedure Date / Time Performing Clinician Source Performed PROTHROMBIN TIME/INR 2020-07-17 11:33:00 Kristofer Montgomery [facility] COMPREHENSIVE METABOLIC 2020-07-17 11:33:[address] [facility] CBC W/PLT COUNT & AUTO 2020-07-17 11:33:[address] [facility] BILIRUBIN, DIRECT 2020-07-17 11:33:00 Kristofer Montgomery [facility] PROTHROMBIN TIME/INR 2020-07-11 11:39:00 Kristofer Montgomery [facility] COMPREHENSIVE METABOLIC 2020-07-11 11:39:[address] [facility] CBC W/PLT COUNT & AUTO 2020-07-11 11:39:[address] [facility] BILIRUBIN, DIRECT 2020-07-11 11:39:00 Kristofer Montgomery [facility] PROTHROMBIN TIME/INR 2020-06-13 12:36:00 Kristofer Montgomery [facility] COMPREHENSIVE METABOLIC 2020-06-13 12:36:[address] [facility] CBC W/PLT COUNT & AUTO 2020-06-13 12:36:[address] [facility] BILIRUBIN, DIRECT 2020-06-13 12:36:00 Kristofer Montgomery [facility] PROTHROMBIN TIME/INR 2020-05-17 13:41:00 AmericaKristofer theodore [facility] COMPREHENSIVE METABOLIC 2020-05-17 13:41:[address] [facility] CBC W/PLT COUNT & AUTO 2020-05-17 13:41:[address] [facility] BILIRUBIN, DIRECT 2020-05-17 13:41:00 AmericaKristofer [facility] PROTHROMBIN TIME/INR 2020-05-09 12:29:00 AmericaKristofer [facility] COMPREHENSIVE METABOLIC 2020-05-09 12:29:[address] [facility] CBC W/PLT COUNT & AUTO 2020-05-09 12:29:[address] [facility] BILIRUBIN, DIRECT 2020-05-09 12:29:00 AmericaKristofer [facility] PROTHROMBIN TIME/INR 2020-05-02 13:25:00 AmericaKristofer theodore [facility] COMPREHENSIVE METABOLIC 2020-05-02 13:25:[address] [facility] CBC W/PLT COUNT & AUTO 2020-05-02 13:25:[address] [facility] BILIRUBIN, DIRECT 2020-05-02 13:25:00 AmericaKristofer theodore [facility] PLATELET ESTIMATION 2020-05-02 13:25:00 Kristofer Montgomery [facility] PROTHROMBIN TIME/INR 2020-04-25 13:13:00 AmericaKristofer theodore [facility] COMPREHENSIVE METABOLIC 2020-04-25 13:13:[address] [facility] CBC W/PLT COUNT & AUTO 2020-04-25 13:13:[address] [facility] BILIRUBIN, DIRECT 2020-04-25 13:13:00 AmericaKristofer [facility] PLATELET ESTIMATION 2020-04-25 13:13:00 AmericaK[place]ofer [facility] PROTHROMBIN TIME/INR 2020-04-18 08:56:00 Kristofer Montgomery [facility] METABOLIC 2020-04-18 08:56:[address] [facility] CBC W/PLT COUNT & AUTO 2020-04-18 08:56:[address] [facility] BILIRUBIN, DIRECT 2020-04-18 08:56:00 AmericaKristofer theodore [facility] XR DXA BONE DENSITY STUDY 2020-04-11 11:51:00 AmericaKristofer theodore I [facility] ALPHA FETOPROTEIN (AFP), 2020-04-11 11:13:00 Sia Riley Formerly named [facility] MARKER [facility] BILIRUBIN, DIRECT 2020-04-11 11:13:00 LivelaSia lozano [facility] COMPREHENSIVE METABOLIC 2020-04-11 11:13:[address] [facility] PROTHROMBIN TIME/INR 2020-04-11 11:13:00 JalalSia [facility] CBC W/PLT COUNT & AUTO 2020-04-11 11:13:00 Sia Riley [facility] PROTHROMBIN TIME/INR 2020-03-10 08:03:00 AmericaKristofer theodore [facility] COMPREHENSIVE METABOLIC 2020-03-10 08:03:[address] [facility] CBC W/PLT COUNT & AUTO 2020-03-10 08:03:[address] [facility] BILIRUBIN, DIRECT 2020-03-10 08:03:00 AmericaKristofer theodore [facility] MISCELLANEOUS LAB ORDER 2020-02-15 12:29:00 AmericaKristofer theodore [facility] MAGNESIUM 2020-02-15 12:29:00 AmericaKristofer theodore [facility] BILIRUBIN, DIRECT 2020-02-15 12:29:00 AmericaKristofer theodore [facility] METABOLIC 2020-02-15 12:29:[address] [facility] PROTHROMBIN TIME/INR 2020-02-15 12:29:00 AmericaKristofer [facility] CBC W/PLT COUNT & AUTO 2020-02-15 12:29:[address] [facility] PROTHROMBIN TIME/INR 2020-02-08 10:23:00 AmericaKristofer [facility] COMPREHENSIVE METABOLIC 2020-02-08 10:23:[address] [facility] CBC W/PLT COUNT & AUTO 2020-02-08 10:23:[address] [facility] BILIRUBIN, DIRECT 2020-02-08 10:23:00 AmericaKristofer [facility] PLATELET ESTIMATION 2020-02-08 10:23:00 AmericaKristofer [facility] PROTHROMBIN TIME/INR 2020-02-01 09:25:00 [facility]Krist[facility] 2020-02-01 09:25:[address] [facility] CBC W/PLT COUNT & AUTO 2020-02-01 09:25:[address] [facility] BILIRUBIN, DIRECT 2020-02-01 09:25:00 AmericaKristofer theodore [facility] RHYTHM STRIP - SCAN 2020-01-27 10:00:12 Provider, Default [facility] CARDIAC CATH REPORT - SCAN 2020-01-27 10:00:07 Provider, Default [facility] TRANSFUSE LEUKO-REDUCED 2020-01-26 22:41:07 Miguel Angel, Kayiln [facility] METANEPHRINES 2020-01-26 14:51:00 SantikaBlanca noriega [facility] 2020-01-26 03:50:00 Galdino Roscoe [facility] PROTHROMBIN TIME/INR 2020-01-26 03:50:00 Galdino Roscoe [facility] CALCIUM, IONIZED 2020-01-26 03:50:00 [facility] COMPREHENSIVE METABOLIC 2020-01-26 03:50:00 Leland [facility] PHOSPHORUS 2020-01-26 03:50:00 Leland [facility] MAGNESIUM 2020-01-26 03:50:[address] [facility] CBC W/PLT COUNT & AUTO 2020-01-26 03:50:00 Florian Kinney [facility] HEPATIC FUNCTION PANEL 2020-01-25 03:47:00 [facility] PROTHROMBIN TIME/INR 2020-01-25 03:47:00 [facility] BASIC METABOLIC PANEL (7) 2020-01-25 03:47:[address] [facility] MAGNESIUM 2020-01-25 03:47:[address] [facility] CBC W/PLT COUNT & AUTO 2020-01-25 03:47:00 Florian Kinney [facility] (CELLAVISION MANUAL DIFF) 2020-01-25 03:47:00 Zi Kinneymahaska Ping [facility] TRANSFUSION SERVICE REPORT 2020-01-24 18:00:13 Provider [facility] PULMONARY FUNCTION - SCAN 2020-01-24 13:10:09 Provider [facility] SPIROMETRY 2020-01-24 10:41:00 [facility] DLCO (SINGLE BREATH 2020-01-24 10:41:00 [facility] - DIFFUSION) [facility] LUNG VOLUMES 2020-01-24 10:41:00 [facility] 6 MINUTE WALK(FOR LUNG 2020-01-24 10:20:00 [facility] - TRANSPLANT ONLY) [facility] HEPATIC FUNCTION PANEL 2020-01-24 03:57:00 [facility] PROTHROMBIN TIME/INR 2020-01-24 03:57:00 Galdino, [facility] CALCIUM, IONIZED 2020-01-24 03:57:00 Kermit Nicole [facility] PHOSPHORUS 2020-01-24 03:57:00 Kermit Nicole [facility] BASIC METABOLIC PANEL (7) 2020-01-24 03:57:[address] [facility] MAGNESIUM 2020-01-24 03:57:[address] [facility] CBC W/PLT COUNT & AUTO 2020-01-24 03:57:00 Juana [facility] PREPARE LEUKO-REDUCED RBC 2020-01-23 23:54:00 Vitor Orozco [facility] TRANSFUSION SERVICE REPORT 2020-01-23 18:00:37 Provider, [facility] HEPATIC FUNCTION PANEL 2020-01-23 04:32:[address] [place] [facility] PROTHROMBIN TIME/INR 2020-01-23 04:32:00 Galdino [facility] B-TYPE NATRIURETIC FACTOR 2020-01-23 04:32:00 Kermit Nicole [facility] (BNP) [facility] CALCIUM, IONIZED 2020-01-23 04:32:00 Kermit Nicole [facility] PHOSPHORUS 2020-01-23 04:32:00 Kermit Nicole [facility] BASIC METABOLIC PANEL (7) 2020-01-23 04:32:[address] [facility] MAGNESIUM 2020-01-23 04:32:[address] [facility] CBC W/PLT COUNT & AUTO 2020-01-23 04:32:00 Juana [facility] (CELLAVISION MANUAL DIFF) 2020-01-23 04:32:00 Juana [facility] PREPARE LEUKO-REDUCED 2020-01-22 23:54:00 Kaylin Michelle [facility] PLATELETS [facility] TRANSFUSION SERVICE REPORT 2020-01-22 18:01:00 Provider, Default [facility] TRANSFUSE LEUKO-REDUCED RED 2020-01-22 14:30:53 [place]chesterVitor Valentine [facility] - BLOOD CELLS [facility] CORTISOL 2020-01-22 08:23:00 Issrikanth [facility] CALCIUM, IONIZED 2020-01-22 04:35:00 Leland Russ [facility] HEPATIC FUNCTION PANEL 2020-01-22 04:35:[address] [place] [facility] BASIC METABOLIC PANEL (7) 2020-01-22 04:35:00 Juana [facility] MAGNESIUM 2020-01-22 04:35:[address] [facility] CBC W/PLT COUNT & AUTO 2020-01-22 04:35:00 Juana [facility] (CELLAVISION MANUAL DIFF) 2020-01-22 04:35:00 Juana [facility] PROTHROMBIN TIME/INR 2020-01-22 04:34:00 [facility] DIRECT [facility] (KRISTI)/DIRECT 2020-01-22 04:34:00 [facility] 2020-01-22 04:34:00 [facility] TRANSFUSION SERVICE REPORT 2020-01-21 18:00:48 ProviderBozena [facility] - [facility] BODY FLUID CULTURE + GRAM 2020-01-21 16:54:00 Miguel Angel, Kaylin [facility] BODY FLUID CELL COUNT WITH 2020-01-21 16:54:00 Miguel Angel, Kaylin [facility] US PARACENTESIS 2020-01-21 16:40:00 [facility] MISCELLANEOUS LAB ORDER 2020-01-21 09:31:00 Orestes [facility] HEPATIC FUNCTION PANEL 2020-01-21 09:31:00 [facility] PROTHROMBIN TIME/INR 2020-01-21 09:31:00 [facility] COMPREHENSIVE METABOLIC 2020-01-21 09:31:00 [facility] PHOS[facility]US 2020-01-21 09:31:00 Leland [facility] MAGNESIUM 2020-01-21 09:31:00 AriasLeena [facility] CORTISOL 2020-01-21 09:31:00 Christine Carlisle [facility] RETICULOCYTE COUNT 2020-01-21 09:31:[address] [facility] PERIPHERAL BLOOD SMEAR - 2020-01-21 09:31:00 Miguel AngelKaylin [facility] CBC W/PLT COUNT & AUTO 2020-01-21 09:31:00 [facility] XR CHEST 1 VIEW 2020-01-21 09:10:00 [facility] PORTABLE/BEDSIDE [facility] METANEPHRINES, 24 HOUR 2020-01-20 22:51:00 [facility] URINE [facility] CATECHOLAMINES, 2020-01-20 22:51:00 [facility] FRACTIONATED, 24HR URINE Medical Center TYPE AND SCREEN, AUTOMATED 2020-01-20 20:39:00 Miguel Angel, Kaylin C [facility] XR CHEST 1 VIEW 2020-01-20 20:28:00 [facility]/BEDSIDE [facility] TRANSFUSION SERVICE REPORT 2020-01-20 18:01:30 Provider, Bozena [facility] - - SCAN Scanning [facility] MR ABDOMEN WITHOUT IV 2020-01-20 17:54:00 [facility] CONTRAST [facility] HEPATIC FUNCTION PANEL 2020-01-20 04:10:00 [facility] PROTHROMBIN TIME/INR 2020-01-20 04:10:00 [facility] CALCIUM, IONIZED 2020-01-20 04:10:00 Leland [facility] COMPREHENSIVE METABOLIC 2020-01-20 04:10:00 [facility] PHOSPHORUS 2020-01-20 04:10:00 Leland [facility] MAGNESIUM 2020-01-20 04:10:00 AriasLeena loya [facility] CBC W/PLT COUNT & AUTO 2020-01-20 04:10:[address] [facility] (CELLAVISION MANUAL DIFF) 2020-01-20 04:10:[address] [facility] PREPARE LEUKO-REDUCED RBC 2020-01-19 23:54:00 Miguel Angel, Kaylin [facility] URINALYSIS W/ MICROSCOPIC 2020-01-19 23:19:[address] [facility] SODIUM, RANDOM URINE 2020-01-19 23:19:00 Russ Ha [facility] BLOOD CULTURE 2020-01-19 21:45:00 Galdino [facility] BLOOD CULTURE 2020-01-19 21:44:00 Galdino [facility] [id number] 2020-01-19 21:43:00 Kristofer Montgomery [facility] TRANSFUSION SERVICE REPORT 2020-01-19 18:01:08 Bozena Lopes [facility] SCAN [facility] R & L CATH / CORONARY 2020-01-19 16:30:00 Brian Browning [facility] ANGIOS (+/- LV) [facility] BLOOD GAS, ARTERIAL 2020-01-19 15:44:00 Kristofer Montgomery [facility] CRYPTOCOCCAL ANTIGEN 2020-01-19 15:04:00 Kristofer Montgomery [facility] MUMPS ANTIBODY, IGG 2020-01-19 15:04:00 Kristofer Montgomery [facility] RUBELLA ANTIBODY, IGG 2020-01-19 15:04:00 Kristofer Montgomery [facility] RUBEOLA ANTIBODY IGG 2020-01-19 15:04:00 Kristofer Montgomery [facility] VARICELLA ZOSTER ANTIBODY, 2020-01-19 15:04:00 Kristofer Montgomery [facility] PROTHROMBIN TIME/INR 2020-01-19 11:00:00 [facility] US BREAST BILATERAL 2020-01-19 09:10:00 Kristofer Montgomery [facility] HEPATIC FUNCTION PANEL 2020-01-19 04:11:00 [facility] CALCIUM, IONIZED 2020-01-19 04:11:00 [facility] COMPREHENSIVE METABOLIC 2020-01-19 04:11:00 Leland [facility] PHOSPHORUS 2020-01-19 04:11:00 [facility] B-TYPE NATRIURETIC FACTOR 2020-01-19 04:11:00 [facility] (BNP) [facility] ALDOSTERONE 2020-01-19 04:11:00 King Rehan [facility] RENIN, PLASMA 2020-01-19 04:11:00 King Rehan [facility] METANEPHRINES 2020-01-19 04:11:00 King Rehan [facility] MAGNESIUM 2020-01-19 04:11:[address] [facility] CBC W/PLT COUNT & AUTO 2020-01-19 04:11[facility] [facility] [address] [facility] WITHOUT IV 2020-01-19 00:40:00 [facility] CONTRAST [facility] US RENAL COMPLETE 2020-01-19 00:20:00 [facility] PREPARE LEUKO-REDUCED 2020-01-18 23:54:00 Juana [facility] PLATELETS [facility] URINALYSIS W/ MICROSCOPIC 2020-01-18 20:49:00 [facility] SODIUM, RANDOM URINE 2020-01-18 20:49:00 [facility] PROTEIN, RANDOM URINE 2020-01-18 20:49:00 [facility] CREATININE, RANDOM URINE 2020-01-18 20:49:00 [facility] EOSINOPHIL SMEAR, URINE 2020-01-18 20:49:00 Russ Ha [facility] TRANSFUSION SERVICE REPORT 2020-01-18 18:31:51 ProviderBozena [facility] - - SCAN Scanning [facility] TRANSFUSE LEUKO-REDUCED RED 2020-01-18 13:21:26 Miguel Angel [facility] BLOOD CELLS [facility] NM MYOCARDIAL PERFUSION 2020-01-18 09:20:00 Brian Browning [facility] - PET/CT (REST & STRESS) Medical C enter TREADMILL 2020-01-18 08:57:35 Unknown, Hl7 [facility]ER[facility](NON-NUCLEAR Medical Ce nter TREADMILL) ECG 12-LEAD 2020-01-18 08:46:42 Unknown, Hl7 [facility] BASIC METABOLIC PANEL (7) 2020-01-18 06:10:00 Juana [facility] MAGNESIUM 2020-01-18 06:10:[address] [facility] T SPOT TB 2020-01-18 06:10:[address] [facility] HEPATIC FUNCTION PANEL 2020-01-18 06:10:00 Roscoe Ahmadi [facility] CBC W/PLT COUNT & AUTO 2020-01-18 06:10:00 Juana [facility] (CELLAVISION MANUAL DIFF) 2020-01-18 06:10:00 Juana [facility] ECG 12-LEAD 2020-01-17 11:05:03 Brian Browning [facility] REPORT OF PROCEDURE - 2020-01-17 09:11:05 Doris [facility] REPORT OF PROCEDURE - 2020-01-17 08:39:23 Doris [facility] TISSUE EXAM 2020-01-17 08:15:00 Doris [facility] TRANSFUSE LEUKO-REDUCED 2020-01-17 08:04:58 Juana [facility] PLATELETS [facility] UPPER ENDOSCOPY,BIOPSY 2020-01-17 07:55:00 Doris [facility] COLONOSCOPY 2020-01-17 07:55:00 Lexi Georgecarlos alberto [facility] PROTHROMBIN TIME/INR 2020-01-17 03:56:00 Mary Roper [facility] BASIC METABOLIC PANEL (7) 2020-01-17 03:56:00 Leena Arias CH, I [facility] MAGNESIUM 2020-01-17 03:56:00 Leena Arias [facility] CBC W/PLT COUNT & AUTO 2020-01-17 03:56:00 Juana [facility] (CELLAVISION MANUAL DIFF) 2020-01-17 03:56:[address] [facility] TRANSFUSION SERVICE REPORT 2020-01-16 18:00:27 Bozena Lopes [facility] BLOOD CULTURE 2020-01-16 12:25:00 Shady [facility] LACTATE DEHYDROGENASE (LDH) 2020-01-16 12:24:00 [facility]ICUL[facility] 2020-01-16 12:23:00 Iván [facility] BLOOD CULTURE 2020-01-16 11:25:00 Shady [facility] HIV-1 ANTIGEN WITH HIV-1/2 2020-01-16 11:25:00 Shady Gonzáles [facility] VITAMIN B12 AND FOLATE 2020-01-16 11:25:00 Iván [facility] HAPTOGLOBIN 2020-01-16 11:25:00 [facility] ABDOMINAL WITH DOPPLER 2020-01-16 06:30:00 Shady Gonzáles [facility] PROTHROMBIN TIME/INR 2020-01-16 03:38:[address] [facility] HEPATIC FUNCTION PANEL 2020-01-16 03:38:00 Graciela Stone [facility] BASIC METABOLIC PANEL (7) 2020-01-16 03:38:00 Leena Arias CH [facility] MAGNESIUM 2020-01-16 03:38:00 Leena Arias [facility] CBC W/PLT COUNT & AUTO 2020-01-16 03:38:00 Juana [facility] DIFFERENTIAL [facility] DRUG SCREEN, URINE, 2020-01-15 21:52:00 Shady Gonzáles [facility] TRANSPLANT [facility] BLOOD TYPING, AUTOMATED 2020-01-15 18:16:00 Shady Gonzáles [facility] CT CHEST WITHOUT IV 2020-01-15 17:54:00 EliecerShady davidson [facility] CONTRAST [facility] XR CHEST 2 VIEWS 2020-01-15 16:57:00 EliecerShady davidson [facility] XR MANDIBLE 4 VIEWS MIN 2020-01-15 16:39:00 Shady Gonzáles [facility] VITAMIN D, 25-HYDROXY 2020-01-15 16:17:00 Shady Gonzáles [facility] COMPREHENSIVE METABOLIC 2020-01-15 16:17:00 Shady Gonzáles [facility] BILIRUBIN, DIRECT 2020-01-15 16:17:00 EliecerShady davidson [facility] CALCIUM, IONIZED 2020-01-15 16:17:00 EliecerShady davidson [facility] ZINC 2020-01-15 16:17:00 EliecerShady davidson [facility] ANTI-NUCLEAR ANTIBODY (REILLY) 2020-01-15 16:17:00 EliecerShady davidson [facility] ACTIN (SMOOTH MUSCLE) 2020-01-15 16:17:00 EliecerShady davidson [facility] ANTIBODY, IGG [facility] MITOCHONDRIA M2 ANTIBODY 2020-01-15 16:17:00 EliecerShady davidson [facility] (IGG) [facility] IRON, TIBC, % SAT. (WITHOUT 2020-01-15 16:17:00 EliecerShady davidson [facility] FERRITIN) [facility] FERRITIN 2020-01-15 16:17:00 EliecerShady davidson [facility] TRANSFERRIN 2020-01-15 16:17:00 Shady Gonzáles [facility] OZTHI-1-[id number]\\, SERUM 2020-01-15 16:17:00 Shady Gonzáles [facility] CERULOPLASMIN 2020-01-15 16:17:00 Shady Gonzáles [facility] ALPHA FETOPROTEIN (AFP), 2020-01-15 16:17:00 Shady Gonzáles [facility] TUMOR MARKER [facility] CARCINOEMBRYONIC ANTIGEN 2020-01-15 16:17:00 Shady Gonzáles [facility] (CEA) [facility] CARBOHYDRATE ANTIGEN 19-9 2020-01-15 16:17:00 Shady Gonzáles [facility] (CA 19-9) [facility] HEMOGLOBIN A1C 2020-01-15 16:17:00 Shady Gonzáles [facility] TSH 2020-01-15 16:17:00 Shady Gonzáles [facility] T3 2020-01-15 16:17:00 Shady Gonzáles [facility] T4 2020-01-15 16:17:00 Shady Gonzáles [facility] ETHANOL 2020-01-15 16:17:00 Shady Gonzáles [facility] FIBRINOGEN 2020-01-15 16:17:00 Shady Gonzáles [facility] PROTHROMBIN TIME/INR 2020-01-15 16:17:00 Shady Gonzáles [facility] APTT 2020-01-15 16:17:00 Shady Gonzáles [facility] HEPATITIS A ANTIBODY, IGM 2020-01-15 16:17:00 Shady Gonzáles [facility] HEPATITIS B SURFACE ANTIGEN 2020-01-15 16:17:00 Shady Gonzáles [facility] HEPATITIS B SURFACE 2020-01-15 16:17:00 Shady Gonzáles [facility] ANTIBODY [facility] HEPATITIS B CORE ANTIBODY, 2020-01-15 16:17:00 Shady Gonzáles [facility] - TOTAL [facility] HEPATITIS B CORE ANTIBODY, 2020-01-15 16:17:00 Eliecer, [facility] IGM [facility] HEPATITIS C ANTIBODY 2020-01-15 16:17:00 Eliecer [facility] RPR 2020-01-15 16:17:00 Eliecer [facility] CYTOMEGALOVIRUS ANTIBODY, 2020-01-15 16:17:00 Eliecer [facility] IGG [facility] CYTOMEGALOVIRUS ANTIBODY, 2020-01-15 16:17:00 Eliecer, [facility] IGM [facility] EBV ANTIBODY, IGM 2020-01-15 16:17:00 Eliecer [facility] TYPE AND SCREEN, AUTOMATED 2020-01-15 16:17:00 Eliecer [facility] 2D ECHO W/ DOPPLER 2020-01-15 14:45:[address] [facility] (CW/PW/COLOR) [facility] CAROTID DOPPLER BILATERAL 2020-01-15 14:41:00 Eliecer [facility] SODIUM, RANDOM URINE 2020-01-15 12:46:[address] [facility] CREATININE, RANDOM URINE 2020-01-15 12:46:00 Graciela Stone CH I [facility] AMMONIA 2020-01-15 08:32:00 Graciela Stone [facility] HEPATITIS PANEL, ACUTE 2020-01-15 08:32:00 [facility] BASIC METABOLIC PANEL (7) 2020-01-15 03:56:[address] [facility] PROTHROMBIN TIME/INR 2020-01-15 03:56:00 Graciela Stone [facility] HEPATIC FUNCTION PANEL 2020-01-15 03:56:[address] [facility] MAGNESIUM 2020-01-15 03:56:00 Graciela Stone [facility] URIC ACID 2020-01-15 03:56:00 Shady [facility] GAMMA GLUTAMYL TRANSFERASE 2020-01-15 03:56:[address] [facility] (GGT) [facility] PHOSPHORUS 2020-01-15 03:56:00 Eliecer [facility] LIPID PANEL 2020-01-15 03:56:00 Shady [facility] CBC W/PLT COUNT & AUTO 2020-01-15 03:56:00 Graciela Stone [facility] (CELLAVISION MANUAL DIFF) 2020-01-15 03:56:[address] [facility] BASIC METABOLIC PANEL (7) 2020-01-14 21:59:[address] [facility] PROTHROMBIN TIME/INR 2020-01-14 21:59:00 Graciela Stone [facility] HEPATIC FUNCTION PANEL 2020-01-14 21:59:00 Graciela Stone [facility] CBC W/PLT COUNT & AUTO 2020-01-14 21:59:00 [facility]OV2/[facility] ([facility] & 2020-01-14 19:28:00 Tameka Hunter I [facility] - REF LABS) [facility] BASIC METABOLIC PANEL (7) 2020-01-03 14:34:00 Laron Line CH I [facility] HEPATIC FUNCTION PANEL 2020-01-03 14:34:00 Larry, [facility] PROTHROMBIN TIME/INR 2020-01-03 14:34:[address] [facility] ALPHA FETOPROTEIN (AFP), 2020-01-03 14:34:00 Larry [facility] - TUMOR MARKER [facility] CBC W/PLT COUNT & AUTO 2020-01-03 14:34:00 Larry, Line [facility] Plan of Care Planned Activity Planned Date Details Comments Source Future Scheduled 2030-01-[address] [facility] 00:00[facility]00 [facility] colon (procedure) [code = 669748493] Future Scheduled 2020-03-28 INFLUENZA VACCINE (#1) [facility] 00:00:00 [code = INFLUENZA Medical Ce nter VACCINE (#1)] Future Scheduled 2020-02-26 INFLU[facility]ZA VACCINE [place] 00:00:00 [code = INFLUENZA VACCINE] Future Scheduled 2019-07-[address] [facility] - Test 00:00:00 (12+) [code = [facility] DEPRESSION SCREENING (12+)] Future Scheduled 2019-07-28 Medicare IPPE (WELCOME [facility] Test 00:00:00 TO MEDICARE) [code = [facility] Medicare IPPE (WELCOME TO MEDICARE)] Future Scheduled 2019 65+ PNEUMOCOCCAL [facility] Test 00:00:00 VACCINE (1 of 1 - PPSV23) [code = 65+ PNEUMOCOCCAL VACCINE (1 of 1 - PPSV23)] Future Scheduled 2019 PNEUMOCOCCAL 65+ Y[facility] - Test 00:00:00 (2 of 2 - PPSV23) Medical Ce nter [code = PNEUMOCOCCAL 65+ YRS (2 of 2 - PPSV23)] Future Scheduled 2004 BREAST CANCER [facility] 00:00:00 SCREENING [code = BREAST CANCER SCREENING] Future Scheduled 2004 COLONOSCOPY SCREENING [place] [facility] 00:00:00 [code = COLONOSCOPY SCREENING] Future Scheduled 2004 SHINGLES VACCINES (#1) [facility] Test 00:00:00 [code = SHINGLES VACCINES (#1)] Future Scheduled 1970 COVID-19 VACCINE (#1) [place] [facility] [facility] Test 00:00:00 [code = COVID-19 VACCINE (#1)] Future Scheduled [address] [facility] Test 00:00:00 [facility] breast (procedure) [code = 476111145] Encounters Start End Encounter Admission Attending Care Care Encounter Source Date/Time Date/Time Type Type Clinicians Facility Department ID 2020-06-19 2020-06-19 [facility] [id number] 2020-06-16 2020-06-16 [facility] [id number] [facility] 2020-05-02 2020-05-02 [facility] [id number] [facility] 2020-04-19 2020-04-19 [facility] [id number] [facility] 2020-02-21 2020-02-21 [facility] [id number] 16:00:00 16:00:00 [facility] Medicine l Medicine Outpati ent Clinics 2020-02-14 2020-02-14 [facility] [id number] 10:00:00 10:00:00 [facility] Medicine l Medicine Outpati ent Clinics 2020-02-03 2020-02-03 [facility] [id number] 11:48:00 11:48:00 [facility] Medicine l Medicine Outpati ent Clinics 2020-01-13 2020-01-13 [facility] [id number] 14:40:00 14:40:00 [facility] Medicine l Medicine Outpati ent Clinics 2020-01-03 2020-01-03 Transition Edgardo Grovesyahaira [id number] 00:00:00 00:00:00 of Gillian Ellsworth [id number] Francine [id number] [facility] 2019-12-28 2019-12-31 [facility] AnnariYahir Holli [facility] [id number] 21:39:45 13:10:00 Encounter Jacklyn Lewis [id number] [place] [id number] [place] [id number] 2019-11-03 2019-11-03 [facility] [id number] 13:20:00 13:20:00 [facility] 2019-09-10 2019-09-10 [facility] [id number] 09:30:00 09:30:00 [facility] Outpati ent Clinics 2019-08-31 2019-08-31 [facility] [id number] 08:00:00 08:00:00 [facility] 2019-08-24 2019-08-24 [facility] [id number] 10:41:00 10:41:00 [facility] 2019-08-19 2019-08-19 [facility] [id number] 13:00:00 13:00:00 [facility] Results Test Description Test Time Test Comments Results Result Comments Source Comprehensive metabolic panel 2020-07-17 16:57:00 Test Item Value Reference Range Interpretation Comme nts Glucose (test code = 147 mg/dL 65-139 H Non-fasting ) reference inter beatriz BUN (test code = 45 mg/dL 7-25 H 20101128) Creatinine (test code = 2.84 mg/dL 0.5-0.99 H For patients >49 years 20130920) of age, the ref erence limitfor Creati nine is approximately 1 3% higher for peopleident ified as -Marisela n. eGFR If NonAfricn Am 17 > OR = 60 L (test code = 3366133) mL/min/1.73m2 eGFR If Africn Am (test 19 > OR = 60 L code = 0139049) mL/min/1.73m2 BUN/Creatinine Ratio 16 6- 22 (calc) (test code = 8512353) Sodium (test code = 136 mmol/L 135-884 6201201) Potassium, Serum (test 4.6 mmol/L 3.5-5.3 code = 20101213) Chloride (test code = 107 mmol/L 98-006 0321201) Carbon Dioxide, Total 21 mmol/L 20-32 (test code = 4431299) Calcium, Serum (test 10.6 mg/dL 8.6-10.4 H code = 6109003) Protein, Total, Serum 5.7 g/dL 6.1-8.1 L (test code = 20101202) Albumin (test code = 3.1 g/dL 3.6-5.1 L ) GLOBULIN (QUEST) (test 2.6 1.9- 3.7 g/dL code = 3835386) (calc) Albumin Globulin Ratio 1.2 1.0- 2.5 (calc) (test code = 1759-0) Bilirubin, Total (test 3.2 mg/dL 0.2-1.2 H code = 20101204) Alkaline Phosphatase, S 83 U/L 37-153 (test code = 6768-6) AST (SGOT) (test code = 26 U/L 10-35 20101208) ALT (SGPT) (test code = 12 U/L 6-29 ) VALENTE (test code = VALENTE) STATFASTING:NOFASTING : NO RAC (test code = RAC) Performing Organization Information: Site ID: JOSHUA Name: [facility] Address: [address] [place] [phone] Director: Alonso Carrasco Lab Interpretation Abnormal (test code = 38332-9) [facility] [id number] 16:57:00 Test Item Value Reference Range Interpretation Comments Bilirubin, Total (test 3.2 mg/dL 0.2-1.2 H code = 20101204) Bilirubin, Direct (test 1.1 mg/dL < OR = 0.2 H code = 20101216) Bilirubin, Indirect 2.1 0.2- 1.2 mg/dL H (test code = 9431586) (calc) VALENTE (test code = VALENTE) STATFASTING:NOFASTING : NO RAC (test code = RAC) Performing Organization Information: Site ID: [facility] Name: [facility] Address: [address] [place] [phone] Director: Alonso Carrasco Lab Interpretation Abnormal (test code = 81084-6) [facility] with platelet count + automated [id number] 16:57:00 Test Item Value Reference Interpretation Comments Range WBC (test code = 4.3 3.8- 10.8 ) Thousand/uL RBC (test code = 2.33 3.80- 5.10 L 789-8) Million/uL Hemoglobin (test 8.4 g/dL 11.7-15.5 L code = ) Hematocrit (test 24.3 % 35-45 L code = ) MCV (test code = 104.3 fL 80-100 H ) MCH (test code = 36.1 pg 27-33 H ) MCHC (test code = 34.6 g/dL 32-36 ) RDW (test code = 13.4 % 11-15 ) MPV (test code = 10.9 fL 7.5-12.5 5120450) # Neutros (test code 2756 1,500 - 7,800 = 20200220) cells/uL # Lymphs (test code 714 850- 3,900 L = 731-0) cells/uL # Monos (test code = 340 200- 966 9330210) cells/uL # Eos (test code = 460 15- 500 711-2) cells/uL # Baso (test code = 30 0- 200 704-7) cells/uL % Neutros (test code 64.1 % = ) % Lymphs (test code 16.6 % = 20200217) % Monos (test code = 7.9 % ) % Eos (test code = 10.7 % 20200215) % Baso (test code = 0.7 % 20200216) Platelets (test code TNP Thousand/uL TEST(S ) NOT = ) PERFORMED: PLATELET COUNT Unable to repor t due tosignifica nt clumping.Platel et estimate appear s marko decreased but greaterthan 30,000/uL. VALENTE (test code = STATFASTING:NOFAST VALENTE) ING: NO RAC (test code = Performing RAC) Organization Information: Site ID: JOSHUA Name: [employer] [facility] Address: [address] [place] [address] Director: Alonso Carrasco Lab Interpretation Abnormal (test code = 53704-8) [facility] Center[facility]th[facility]bin time/[id number] 16:57:00 Test Item Value Reference Range Interpretation Comments INR (test code = 1.2 H Reference R von ) 0.9-1.1Moderate - intensity Warfarin Therap y 2.0-3.0Higher-i n tensity Warfari n Therapy 3.0-4.0 PT (test code = 11.9 9.0- 11.5 sec H For additio nal ) information, please refer [email or web address] i [email or web address] [email or web address]/FAQ 07 31(This link is being provided for informational/e d ucational purposes only.) VALENTE (test code = VALENTE) STATFASTING:NOFAST ING: NO RAC (test code = RAC) Performing Organization Information: Site ID: SANJAYA Name: [facility] Address: [address] [place] [address] Director: Alonso Carrasco Lab Interpretation Abnormal (test code = 32397-5) [facility] CenterPLATELET [id number] 18:02:00 Test Item Value Reference Range Interpretation Comments Platelet Estimate (test DECREASED ADEQUATE A code = 74878-0) VALENTE (test code = VALENTE) FASTING:NOFASTING: NO RAC (test code = RAC) Performing Organization Information: Site ID: A Name: [facility] Address: [address] [place] [address] Director: Alonso Carrasco Lab Interpretation (test Abnormal code = 74691-3) [facility] CenterBILIRUBIN, [id number] 15:57:00 Test Item Value Reference Range Interpretation Comments BILIRUBIN DIRECT (BEAKER) (test 1.9 mg/dL 0.1-0.5 H code = 706) Forming Roll Operator ID - BSCOMPREHENSIVE METABOLIC [id number] 15:57:00 Test Item Value Reference Range Interpretation [...] S NOT APPLICABLE FOR DIALYSIS PATIEN TS. Forming Roll Operator ID - BSSpecimen moderately ictericAlpha fetoprotein (AFP), tumor marker 2020-04-11 15:41:00 Test Item Value Reference Range Interpretation Comments Alpha-Fetoprotein (test code <2.0 <10.0 ng/mL = 1834-1) VALENTE (test code = VALENTE) Forming Roll Operator ID - BS Lab Interpretation (test Normal code = 39183-6) [facility] Center[facility]PHA FETOPROTEIN (AFP), TUMOR [id number] 15:41:00 Test Item Value Reference Range Interpretation Comments ALPHA-FETOPROTEIN (BEAKER) (test code < ng/mL <10.0 = 1094) Forming Roll Operator ID - BSRAD, BONE DENSITY [id number] 13:34:00Referring: Dr. Rowdy Zhang for Exam:->liver transplant waiting listFINAL REPORT Bone density study, 04/11/2020 Clinical History: Screening Bone mineral density measurementLumbar spine0.866 gm/xa7Qhaxxdv neck0.714 gm/cm2 Standard deviation fromyoung adult population [...] MDReport Verified Date/Time: 04/11/2020 13:34:32 Reading Location: [address] Mammo Reading Room XR dxa bone density [id number] 13:34:00 Interface, External Ris In - 04/11/2020 1:36 PM CDTFINAL REPORT Bone densitystudy, 04/11/2020 Clinical History: Screening Bone mineral density measurementLumbar spine0.866 gm/ng7Wqckcgh neck0.714 gm/cm2 Standard deviation from young adult [...] [place] Verified Date/Time: 04/11/2020 13:34:32 Reading Location: [address] Mammo [facility][id number] 13:02:00 Test Item Value Reference Range Interpretation [...] heart valves.CBC with platelet count + automated [id number] 12:52:00 Test Item Value Reference Range Interpretation [...] K/CU MM L MPV (test code = 95456-5) 10.4 fL 9.4-12.3 nRBC (test code = [...] 2801) Lab Interpretation (test code = Abnormal 98788-5) [facility] W/PLT COUNT & AUTO [id number] 12:52:00 Test Item Value Reference Range Interpretation [...] (BEAKER) (test code = 2801) MISCELLANEOUS LAB [id number] 12:14:00 Test Item Value Reference Range Interpretation Comments SCAN RESULT (test code = 5909006) Miscellaneous lab [id number] 12:14:00Scan ResultQUEST NON-INTERFACED LABCHI [facility]2020-07-21 13:17:00 Test Item Value Reference Range Interpretation Comments Magnesium (test code = 1.8 mg/dL 1.6-2.6 94147-7) VALENTE (test code = VALENTE) Forming Roll Operator ID - LM Lab Interpretation (test Normal code = 18164-3) [facility]2020-07-21 13:17:00 Test Item Value Reference Range Interpretation Comments MAGNESIUM (BEAKER) (test code = 1.8 mg/dL 1.6-2.6 627) Forming Roll Operator ID - LMCOMPREHENSIVE METABOLIC [id number] 13:17:00 Test Item Value Reference Range Interpretation [...] S NOT APPLICABLE FOR DIALYSIS PATIEN TS. Forming Roll Operator ID - LMSpecimen moderately ictericBILIRUBIN, [id number] 13:17:00 Test Item Value Reference Range Interpretation Comments BILIRUBIN DIRECT (BEAKER) (test 2.5 mg/dL 0.1-0.5 H code = 706) Forming Roll Operator ID - LMPROTHROMBIN TIME/[id number] 13:05:00 Test Item Value Reference Range Interpretation [...] mechanical heart valves.CBC W/PLT COUNT & AUTO [id number] 12:59:00 Test Item Value Reference Range Interpretation [...] 0-1 PERCENT (BEAKER) (test code = 2801) [id number] 10:36:00 Test Item Value Reference Interpretation Comments Range Metanephrine (test 46 pg/mL < OR = 57 This mushtaq t was developed code = 5437326) and its anal ytical performance characteristics havebeen determined by [facility].It h as not been cleared or appr jean-cluade by FDA. This assay has been validatedpursua nt to the CLIA regulation s and is used for clinic al purposes. Normetanephrine 213 pg/mL < OR = 148 H This test w as developed (test code = and its analyti steven 2510690) performance characteristics havebeen determined by [employer] [facility].It h as not been cleared or appr jean-claude by FDA. This assay has been validatedpursua nt to the CLIA regulation s and is used for clinic al purposes. Total Metanephrine 259 pg/mL < OR = 205 H Elevatio ns > 4-fold upper (test code = reference range : strongly 7453269) suggestive of apheochromocyto ma(1). Elevations >1 - 4-fold upper reference range:significa nt but not diagnostic, may be due to medications or stress. Suggestrunning 24 hr urine fractionated me tanephrines and serum Chrom ogranin A forconfirmation . Reference: (1) Latrice Lorenz et al, Plasma Shoe Dresser mogranin A or Urine FractionatedMet anephrines Follow-Up Testi ng Improves the Diagnostic Accuracy of PlasmaFractiona madai Metanephrines f or Pheochromocytom a. The Journal of ClinicalEndocri nology and Metabolism 93 ( 1),91-95, 2007. For addit ional information, pl ease refer tohttp://educat ion.[employer] Union.Databraid/f aq/MetFract Free(This link is being provided for informational/e ducational purposes only.) This test was developed a nd its analytical perf ormance characteristics havebeen determined by [facility].It h as not been cleared or appr jean-claude by FDA. This assay has been validatedpursua nt to the CLIA regulation s and is used for clinic al purposes. VALENTE (test code = Performing Lab VALENTE) EZ [facility] [address] [place] [address] Mark Encarnacion MD, PhD, AMINA Lab Interpretation Abnormal (test code = 12084-3) [facility] CenterCatecholamines, Fractionated, 24hr [id number] 11:55:00 Test Item Value Reference Interpretation Comments Range TOTAL VOLUME (test 1000 mL code = 3158710) Epinephrine,24 Hr <2 2- 24 mcg/24 h L Result b elow clinical Ur (test code = reportable r von for ) this analyte, w hich is 2 mcg/L.Repo rted result was calc ulated using 2 mcg/L. This test was develo ped and its analyti steven performance characteristics havebeen determ ined by [facility] .It has not been cl eared or approved by FDA. This assay has been validatedpursua nt to the CLIA regula tions and is used for clinical purpos es. Norepinephrine 9 15- 100 mcg/24 L This test was (test code = h developed and i ts ) analytical performance characteristics havebeen determ ined by [facility] .It has not been cl eared or approved by FDA. This assay has been validatedpursua nt to the CLIA regula tions and is used for clinical purpos es. Calculated Total 9 26- 121 mcg/24 L This mushtaq t was E+Ne (test code = h developed and its 20190907) analytical performance characteristics havebeen determ ined by [facility] .It has not been cl eared [...] steven performance characteristics havebeen determ ined by [facility] .It has not been cl eared or approved by FDA. This assay has been validatedpursua nt to the CLIA regula tions and is used for clinical purpos es. Creatinine,24 Hr 0.88 0.50- 2.15 Urin (test code = g/24 h ) VALENTE (test code = Performing Lab VALENTE) EZ [facility] [address] [place] [address] Mark Encarnacion MD, PhD, AMINA Lab Interpretation Abnormal (test code = 99782-7) [facility] CenterMISCELLANEOUS LAB [id number] 12:33:00 Test Item Value Reference Range Interpretation Comments SCAN RESULT (test code = 1682078) DOLKT-1-QRZPJRYPDFQ [id number] 16:28:00 Test Item Value Reference Range Interpretation Comments Lab Interpretation (test code = Normal 56718-6) [facility] CenterMetanephrines, 24 hour [id number] 12:57:00 Test Item Value Reference Interpretation Comments Range TOTAL VOLUME (test 1000 mL code = 1346019) Metanephrine (test 205 90- 315 This mushtaq t was code = 7024515) mcg/24 h developed an d its analytical perf ormance characteristics havebeen determ ined by [employer] [facility] .It has not been cleare d or approved by FDA . This assay has been validatedpursua nt to the [facility] and is used for clinical purpos es. Normetanephrine 657 122- 676 This test w as (test code = mcg/24 h developed and i ts 1243357) analytical perf ormance characteristics havebeen determ ined by [employer] [facility] .It has not been cleare d or approved by FDA . This assay has been validatedpursua nt to the [facility]ula [facility] and is used for clinical purpos [...] perf ormance characteristics havebeen determ ined by [employer] [facility] .It has not been cleare d or approved by FDA . This assay has been validatedpursua nt to the [facility] and is used for clinical purpos es. VALENTE (test code = Performing Lab VALENTE) EZ [facility] [address] [place] [address] I Shashank ADRIAN, PhD, AMINA Lab Interpretation Abnormal (test code = 50641-6) [facility] CenterCalcium, [id number] 05:42:00 Test Item Value Reference Range Interpretation Comments Calcium, Ion (test code = 1993-) 1.11 mmol/L 1.12-1.27 L pH, Blood (test code = 90645-8) 7.41 Lab Interpretation (test code = Abnormal 24150-9) [facility] CenterCALCIUM, [id number] 05:42:00 Test Item Value Reference Range Interpretation Comments CALCIUM IONIZED (BEAKER) (test 1.11 mmol/L 1.12-1.27 L code = 698) PH, BLOOD (BEAKER) (test code = 7.41 1810) COMPREHENSIVE METABOLIC [id number] 04:57:00 Test Item Value Reference Range Interpretation [...] S NOT APPLICABLE FOR DIALYSIS PATIEN TS. Forming Roll Operator ID - BSSpecimen moderately ictericHepatic function [id number] 04:53:00 Test Item Value Reference Range Interpretation Comments Protein, Total (test code 5.7 6.0- 8.3 gm/dL L = 2885-2) Albumin (test code = 3.4 g/dL 3.5-5 L 02549-4) Total Bilirubin (test 6.9 mg/dL 0.2-1.2 H code = 1975-2) Bilirubin, Direct (test 2.2 mg/dL 0.1-0.5 H code = 1968-7) Alkaline Phosphatase 58 U/L 40-150 (test code = 6768-6) AST (test code = 1920-8) 36 U/L 5-34 H ALT (test code = 1742-6) 13 U/L 6-55 VALENTE (test code = VALENTE) Forming Roll Operator ID - BSSpecimen moderately icteric Lab Interpretation (test Abnormal code = 99282-7) [facility] CenterPhosphorus2020-07-01 04:53:00 Test Item Value Reference Range Interpretation Comments Phosphorus (test code = 3.2 mg/dL 2.3-4.7 2777-1) VALENTE (test code = VALENTE) Forming Roll Operator ID - BS Lab Interpretation (test Normal code = 16385-9) [facility] CenterPHOSPHORUS2020-07-01 04:53:00 Test Item Value Reference Range Interpretation Comments PHOSPHORUS (BEAKER) (test code = 3.2 mg/dL 2.3-4.7 604) Forming Roll Operator ID - [id number] 04:53:00 Test Item Value Reference Range Interpretation Comments MAGNESIUM (BEAKER) (test code = 1.7 mg/dL 1.6-2.6 627) Forming Roll Operator ID - BSHEPATIC FUNCTION [id number] 04:53:00 Test Item Value Reference Range Interpretation [...] (test code = 13 U/L 6-55 347) Forming Roll Operator ID - BSSpecimen moderately ictericCBC W/PLT COUNT & AUTO [id number] 04:42:00 Test Item Value Reference Range Interpretation [...] PERCENT (BEAKER) (test code = 2801) PROTHROMBIN TIME/[id number] 04:36:00 Test Item Value Reference Range Interpretation [...] (test No organisms seen code = 1123) [facility] CenterBODY FLUID CULTURE + GRAM [id number] 12:05:00 Test Item Value Reference Range Interpretation Comments CULTURE (BEAKER) (test No growth code = 1095) GRAM STAIN RESULT <1+ White blood cells (BEAKER) (test code = seen 1123) GRAM STAIN RESULT No organisms seen (BEAKER) (test code = 59496) Manual [id number] 07:35:00 Test Item Value Reference Range Interpretation [...] Poikilocytes (test code = 2+ moderate 966) [place] Cells (test code = 2+ moderate 474) Artifact (test code = Present 3432) Platelet Conc (test code Decreased = 3438) VALENTE (test code = VALENTE) Forming Roll Operator ID - 6000Operator ID - Maria Del Carmen Quintana comments: Slide comments: Lab Interpretation (test Abnormal code = 87172-8) [facility] W/PLT COUNT & AUTO [id number] 07:35:00 Test Item Value Reference Range Interpretation [...] CONCENTRATION Decreased (CELLAVISION)(BEAKER) (test code = 3438) Forming Roll Operator ID - 6000Operator ID - Maria Del Carmen Davidsonwest comments: Slide comments:Basic Metabolic [id number] 06:24:00 Test Item Value Reference Range Interpretation Comments Sodium (test code = 140 meq/L 435-613 3185-2) Potassium (test code 3.4 meq/L 3.5-5.1 L = 2823-3) Chloride (test code = 105 meq/L 98-107 2075-0) CO2 (test code = 25 meq/L 22-29 8-9) BUN (test code = 31 mg/dL 7-21 H 3094-0) Creatinine (test code 2.35 mg/dL 0.57-1.25 H = 2160-0) Glucose (test code = 108 mg/dL 70-105 H 2345-7) Calcium (test code = 8.7 mg/dL 8.4-10.2 62799-4) EGFR (test code = 21 mL/min/1.73 [place] [address]-2) NOT ACCURATE CREATININE CLEARANCE IN PREDICTING GLOMERULAR FILTRATION RATE . ESTIMATED GFR I S NOT APPLICABLE FOR DIALYSIS PATIENTS. VALENTE (test code = VALENTE) Forming Roll Operator ID - MITCH LSpecnicon moderately icteric Lab Interpretation Abnormal (test code = 13666-7) [facility] CenterBASI METABOLIC [id number] 06:24:00 Test Item Value Reference Range Interpretation Comments SODIUM (BEAKER) 140 meq/L 136-145 (test code = 381) POTASSIUM (BEAKER) 3.4 meq/L 3.5-5.1 L (test code = 379) CHLORIDE (BEAKER) 105 meq/L 98-107 (test code = 382) CO2 (BEAKER) (test 25 meq/L -29 code = 355) BLOOD UREA NITROGEN 31 [...] S NOT APPLICABLE FOR DIALYSIS PATIEN TS. Forming Roll Operator ID - PIAYA LSpecimen moderately ictericHEPATIC FUNCTION [id number] 06:23:00 Test Item Value Reference Range Interpretation [...] (test code = 13 U/L 6-55 347) Forming Roll Operator MABLE MEYER LSpecimen moderately [id number] 06:22:00 Test Item Value Reference Range Interpretation Comments MAGNESIUM (BEAKER) (test code = 1.8 mg/dL 1.6-2.6 627) Forming Roll Operator MABLE MEYER LPROTHROMBIN TIME/[id number] 04:22:00 Test Item Value Reference Range Interpretation [...] = No growth in 5 days 6463-4) [facility] CenterBLOOD [id number] 23:00:00 Test Item Value Reference Range Interpretation Comments CULTURE (BEAKER) (test No growth in 5 days code = 1095) BLOOD [id number] 23:00:00 Test Item Value Reference Range Interpretation Comments CULTURE (BEAKER) (test No growth in 5 days code = 1095) DLCO (single breath diffusion)2020-01-24 10:41:00Epifanio Giles RRT, DEDICATED TRUCK DRIVER 01/24/2020 10:52 [facility] PFT CHARTING REPORT Infection Control/Hand Hygiene procedures followed throughout the encounter with patient: YesPatient Identification Method: Patient name verified on armband, and Medical record on armband, Is the order complete?: Yes Account ID#: [id number] Name: Cici Calderon Birthdate: 1955 Age: 64 [...] and patient released from the lab without adverseoutcome.[facility] CenterPulmonary Funct Lab [id number] 10:41:00Epifanio Giles RRT, DEDICATED TRUCK DRIVER 01/24/2020 10:52 [facility] PFT CHARTING REPORT Infection Control/Hand Hygiene procedures followed throughout the encounter with patient: YesPatient Identification Method: Patient name verified on armband, and Medical record on armband, Is the order complete?: Yes Account ID#: [id number] Name: Cici Calderon Birthdate: 1955 Age: 64 [...] and patient released from the lab without adverseoutcome.[facility] CenterLung hkrqcvo1096-40-17 10:41:00Epifanio Giles, FISCAL TECHNICIAN, DEDICATED TRUCK DRIVER 01/24/2020 10:52 [facility] PFT CHARTING REPORT Infection Control/Hand Hyg iene procedures followed throughout the encounter with patient: YesPatient Identification Method: Patient name verified on armband, and Medical record on armband, Is the order complete?: Yes Account ID#: [id number] Name: Cici Calderon Birthdate: 1955 Age: 64 [...] and patient released from the lab without adverseoutcome.[facility]6 MINUTE WALK(FOR LUNG TRANSPLANT ONLY)2020-01-24 10:20:00Janina Meehan, JUVENAL, DEDICATED TRUCK DRIVER 01/24/2020 2:39 [facility] PFT CHARTING REPORT Infection Control/Hand Hygiene procedures followed throughout the encounter with patient: YesPatient Identification Method: Patient name verified on armband, and Medical record on armband, Is the order complete?: Account ID#: [id number] Name: Cici Calderon Birthdate: 1 09/08/1954 Age: [...] patient released from the lab without adverse outcome.[facility] CenterU/S, [id number] 09:43:00 Referring: Dr. Rowdy Christie to be ordered:->Body Fluid Culture (w/Gram Stain, C\\T\\S)Labs marko ordered:->Cell CountReason for exam:->Acute Kidney Injury - rule out SBP - can remove volume of up to 4-5 L (given ANDERS)Should this be performed at the bedside?->YesFINAL REPORT Ultrasound guided paracentesis Clinical History: Ascites. Sedation: None. Stock Clipper: Christine Ward PA-C Supervising Physician: Natan Chisholm MD Crm Marketing Manager: None. Estimated Blood Loss: < 1 [...] anesthesia was achieved with lidocaine, a 5 Danish one-step catheter was advanced into theperitoneal cavity under ultrasound guidance. After completion of drainage, the catheter was removed.There was no evidence of complication. Impression:Successful ultrasound guided paracentesis. Signed:Natan Chisholm [place] Verified Date/Time: 01/24/2020 09:43:05 Reading Location: [facility] P006J Ultrasound Reading Room US [id number] 09:43:00Interface, External Ris In - 01/24/2020 9:45 AM CDTFINAL REPORT Ultrasound guided paracentesis Clinical History: Ascites. Sedation: None. Stock Clipper: Christine Ward PA-C Supervising Physician: Natan Chisholm MD Crm Marketing Manager: None. Estimated Blood Loss: < 1 [...] anesthesia was achieved with lidocaine, a 5 Danish one-step catheter was advanced into the peritoneal cavity under ultrasound guidance. After completion of drainage, the catheter was removed. There was no evidence of complication. Impression:Successful ultrasound guided paracentesis. Signed: Natan Chisholm MDReport Verified Date/Time: 12/27 09:43:05 Reading Location: [facility] P006J Ultrasound Reading [facility]ABOLIC [id number] 06:18:00 Test Item Value Reference Range Interpretation [...] S NOT APPLICABLE FOR DIALYSIS PATIEN TS. Forming Roll Operator MABLE RUTHERFORDpecimen moderately [id number] 05:38:00 Test Item Value Reference Range Interpretation Comments PHOSPHORUS (BEAKER) (test code = 2.8 mg/dL 2.3-4.7 604) Forming Roll Operator MABLE MEYER [id number] 05:38:00 Test Item Value Reference Range Interpretation Comments MAGNESIUM (BEAKER) (test code = 1.8 mg/dL 1.6-2.6 627) Forming Roll Operator MABLE MEYER LHEPATIC FUNCTION [id number] 05:38:00 Test Item Value Reference Range Interpretation [...] (test code = 11 U/L 6-55 347) Forming Roll Operator MABLE Goetzimeyahaira moderately ictericCALCIUM, [id number] 04:56:00 Test Item Value Reference Range Interpretation Comments CALCIUM IONIZED (BEAKER) (test 1.09 mmol/L 1.12-1.27 L code = 698) PH, BLOOD (BEAKER) (test code = 7.43 1810) PROTHROMBIN TIME/[id number] 04:48:00 Test Item Value Reference Range Interpretation [...] mechanical heart valves.CBC W/PLT COUNT & AUTO [id number] 04:36:00 Test Item Value Reference Range Interpretation [...] (BEAKER) (test code = 2801) Prepare Leuko-Red [id number] 23:54:00 Test Item Value Reference Range Interpretation Comments CROSSMATCH (test code = 2264) COMPATIBLE Unit ABO (test code = A Pos 6464068) UNIT NUMBER (test code = [id number] 934-0) Status (test code = 0210792) TX_TIMEINCHART Blood Bank Product (test code RED BLOOD CELLS = 2263) PRODUCT CODE (test code = W3517S89 933-2) [facility] CenterRubeola antibody [id number] 18:06:00 Test Item Value Reference Range Interpretation Comments Rubeola Ab, 235 AU/mL REFERENCE RANGE : Igg (test code <13.50 AU/mL = 21569-6) AU/mL Interpretation ==== <13.50 Negative 13.50-16.49 Equivocal >16.49 Positive A posi tive result indicate s that the patient hasantibody to measles virus. It does notdifferentiat e between an acti ve or past infection. The clinical diagno sis must be interpr eted inconjunction w ith clinical signs and symptoms ofthe patient. For additional information, pl ease refer tohttp://educat ion.Que stDiagnostics.c om/faq/ RIP923(This rosa k is being provided for informational/e ducatio nal purposes on ly.) VALENTE (test code Performing Lab = VALENTE) *[facility] [facility] [address] [place] [address] Sudhakar Hargrove MD [facility] CenterMitochondria M2 Antibody (IgG)2020-01-23 13:50:00 Test Item Value Reference Range Interpretation Comments Mitochondria M2 Ab <20.0 See Note: U Reference (test code = Range:NEGATIVE: ) < OR = 20.0EQUIVOCAL: 20.1-24.9POSITI V E: > OR = 25.0 VALENTE (test code = Performing Lab VALENTE) EZ [facility] [address] [place] [address] Mark Encarnacion MD, PhD, AMINA [facility] CenterMumps antibody, [id number] 13:38:00 Test Item Value Reference Range Interpretation [...] (test Performing Lab code = VALENTE) *[employer] [facility] [address] [place] [address] Sudhakar Hargrove MD [facility] CenterCBC W/PLT COUNT & AUTO [id number] 12:26:00 Test Item Value Reference Range Interpretation [...] CONCENTRATION Decreased (CELLAVISION)(BEAKER) (test code = 3438) Forming Roll Operator ID - 6000Operator ID - Charo Nikki comments: Slide comments: BASIC METABOLIC [id number] 07:18:00 Test Item Value Reference Range Interpretation [...] S NOT APPLICABLE FOR DIALYSIS PATIEN TS. Forming Roll Operator ID - MITCH LSpecimen moderately [id number] 07:17:00 Test Item Value Reference Range Interpretation Comments MAGNESIUM (BEAKER) 1.6 mg/dL 1.6-2.6 Specimen slightly (test code = 627) hemolyzed Forming Roll Operator ID - MITCH [id number] 07:17:00 Test Item Value Reference Range Interpretation Comments PHOSPHORUS (BEAKER) 2.4 mg/dL 2.3-4.7 Specimen slightly (test code = 604) hemolyzed Forming Roll Operator ID - MITCH LHEPATIC FUNCTION [id number] 07:17:00 Test Item Value Reference Range Interpretation [...] Specimen slightly (test code = 347) hemolyzed Forming Roll Operator ID - MITCH LSpecimen moderately ictericB-type Natriuretic Factor (BNP) 2020-01-23 06:55:00 Test Item Value Reference Range Interpretation Comments BNP (test code = 32375-0) 2179 pg/mL 0-100 H VALENTE (test code = VALENTE) Forming Roll Operator ID - MITCH L Lab Interpretation (test Abnormal code = 32242-0) [facility] CenterB-TYPE NATRIURETIC FACTOR (BNP)2020-01-23 06:55:00 Test Item Value Reference Range Interpretation Comments B-TYPE NATRIURETIC PEPTIDE 2179 pg/mL 0-100 H (BEAKER) (test code = 700) Forming Roll Operator ID - MITCH LCALCIUM, [id number] 06:31:00 Test Item Value Reference Range Interpretation Comments CALCIUM IONIZED (BEAKER) (test 1.07 mmol/L 1.12-1.27 L code = 698) PH, BLOOD (BEAKER) (test code = 7.45 1810) PROTHROMBIN TIME/[id number] 06:00:00 Test Item Value Reference Range Interpretation [...] for patients wiht mechanical heart valves.Prepare Leuko-Red [id number] 23:54:00 Test Item Value Reference Range Interpretation Comments Unit ABO (test code = 4464860) O Pos UNIT NUMBER (test code = [id number] 934-0) Status (test code = 4373855) TX_TIMEINCHART Blood Bank Product (test code PLATELETS = 2263) PRODUCT CODE (test code = E0277Q84 933-2) [facility] CenterCBC W/PLT COUNT & AUTO [id number] 10:35:00 Test Item Value Reference Range Interpretation [...] CONCENTRATION Decreased (CELLAVISION)(BEAKER) (test code = 3438) Forming Roll Operator ID - 6000Operator ID - Lizett OverholtUser comments: Slide comments: [id number] 10:05:00 Test Item Value Reference Range Interpretation Comments Cortisol, Total (test code 1.6 ug/dL 3.7-19.4 L = 2755) VALENTE (test code = VALENTE) Forming Roll Operator ID - MITCH L Lab Interpretation (test Abnormal code = 69870-6) [facility] CenterCORTISOL2020-06-27 10:05:00 Test Item Value Reference Range Interpretation Comments CORTISOL, TOTAL (BEAKER) (test code 1.6 ug/dL 3.7-19.4 L = 2755) Forming Roll Operator ID - MITCH LDirect AHG (KRISTI)/Direct [id number] 07:49:00 Test Item Value Reference Range Interpretation Comments Direct AHG-IGG (test code = 1006-6) NEGATIVE Direct AHG-C3B, C3D (test code = NEGATVIE 1003-3) [facility] CenterABORH, [id number] 07:37:00 Test Item Value Reference Range Interpretation Comments ABO Grouping (test code = 2588) A Rh Factor (test code = 2589) POS [facility] CenterCALCIUM, [id number] 06:31:00 Test Item Value Reference Range Interpretation Comments CALCIUM IONIZED (BEAKER) (test 1.10 mmol/L 1.12-1.27 L code = 698) PH, BLOOD (BEAKER) (test code = 7.44 1810) BASIC METABOLIC [id number] 06:20:00 Test Item Value Reference Range Interpretation [...] S NOT APPLICABLE FOR DIALYSIS PATIEN TS. Forming Roll Operator ID - PIAYA LSpecimen moderately [id number] 06:12:00 Test Item Value Reference Range Interpretation Comments MAGNESIUM (BEAKER) (test code = 1.7 mg/dL 1.6-2.6 627) Forming Roll Operator ID - PIAYA LHEPATIC FUNCTION [id number] 06:12:00 Test Item Value Reference Range Interpretation [...] (test code = 10 U/L 6-55 347) Forming Roll Operator ID - MITCH Jane moderately ictericPROTHROMBIN TIME/[id number] 05:48:00 Test Item Value Reference Range Interpretation [...] is2.5-3.5 for patients wiht mechanical heart valves.Renin, [id number] 22:50:00 Test Item Value Reference Range Interpretation Comments PRA,LC/MS/MS 1.51 ng/mL/h 0.25-5.82 This test was developed (test code = and its analyti steven 5022896) performance characteristics havebeen determined by [facility].It h as not been cleared or approved by FDA. This as say has been validatedp ursuant to the CLIA reg ulations and is used for clinical purposes. VALENTE (test Performing Lab code = VALENTE) EZ [employer] [facility] [address] [place] [address] Mark Encarnacion MD, PhD, AMINA [facility] Center[facility] fluid cell count with [id number] 18:33:00 Test Item Value Reference Range Interpretation Comments Appearance (test code = 9335-1) Hazy Clear A Color (test code = 6824-7) Cele Colorless, Straw A RBCs (test code = 78727-7) 4000 <=1 /cu mm H Adjusted WBC Count (test code = 86 <=5 /cu mm H 38785-6) Lining Cells (test code = 1 <=1 /cu mm 82188-4) % Segs (test code = 83333-1) 7 % % Lymphs (test code = 88252-9) 83 % % Monos (test code = 35047-4) 10 % % Eos (test code = 68717-6) 0 % % Baso (test code = 53202-3) 0 % Container Body Fluid (test code Sterile Vial = 2873) Lab Interpretation (test code = Abnormal 24022-6) [facility] CenterBODY FLUID CELL COUNT WITH [id number] 18:33:00 Test Item Value Reference Range Interpretation [...] = 2873) Peripheral Blood Smear - Hold [id number] 15:19:00 Test Item Value Reference Range Interpretation Comments Peripheral Smear Save (test code = saved 1815) [facility] CenterPERIPHERAL BLOOD SMEAR - HOLD [id number] 15:19:00 Test Item Value Reference Range Interpretation Comments PERIPHERAL SMEAR SAVE (BEAKER) (test saved code = 1815) [id number] 14:41:00 Test Item Value Reference Interpretation Comments Range Aldosterone (test 22 ng/dL Adult Ref erence code = 9825780) Ranges for Aldosterone: Upright 8:00-10 :00 am < or = 28 ng/ dL Upright 4:00-6: 00 pm < or = 21 ng/ dL Supine 8:00-10 :00 am 3-16 ng/dL Th is test was developed a nd its analytical perf ormance characteristics havebeen determ ined by [facility] .It has not been cleare d or approved by FDA . This assay has been validatedpursua nt to the [place] regula tions and is used for clinical purpos es. VALENTE (test code = Performing Lab VALENTE) EZ [employer] [facility] [address] [place] [address] Mark Encarnacion MD, PhD, AMINA [facility] CenterT Spot [id number] 13:05:00 Test Item Value Reference Range Interpretation Comments T-Spot TB (test code = 88834-9) Negative Neg Ctrl Spot Count (test code = 0 56142-2) Panel A Spot (test code = 48674-1) 0 Panel B Spot (test code = 70136-9) [address] (test code = 0 03374-1) Scan Result (test code = 1533140) [facility] SPOT [id number] 13:05:00 Test Item Value Reference Range Interpretation Comments T-SPOT TB (BEAKER) (test code = Negative 1683) NEG CONTROL SPOT COUNT (BEAKER) 0 (test code = 1684) PANEL A SPOT (BEAKER) (test code = 0 1685) PANEL B SPOT (BEAKER) (test code = 0 1686) POS CONTROL SPOT CT (BEAKER) (test 0 code = 1687) SCAN RESULT (test code = 0793253) BLOOD [id number] 13:00:00 Test Item Value Reference Range Interpretation Comments CULTURE (BEAKER) (test No growth in 5 days code = 1095) BLOOD [id number] 12:00:00 Test Item Value Reference Range Interpretation Comments CULTURE (BEAKER) (test No growth in 5 days code = 1095) [id number] 10:25:00 Test Item Value Reference Range Interpretation Comments CORTISOL, TOTAL (BEAKER) (test code 5.1 ug/dL 3.7-19.4 = 2755) Forming Roll Operator ID - TUAN CCOMPREHENSIVE METABOLIC [id number] 10:23:00 Test Item Value Reference Range Interpretation [...] S NOT APPLICABLE FOR DIALYSIS PATIEN TS. Forming Roll Operator ID - TUAN CSpecimen moderately ictericVaricella zoster antibody, IgG 2020-01-21 10:15:00 Test Item Value Reference Range Interpretation Comments Varicella IgG (test 3.6 code = 72645-1) VALENTE (test code = VALENTE) VARICELLA ZOSTER RESULT INTERPRETATIONS: <=0.8 Al Nonreactive: Presumed non-immune to VZV 0.9-1.0 Al Equivocal >=1.1 Al Reactive: Presumed immune to VZV [facility] CenterRubella antibody, [id number] 10:15:00 Test Item Value Reference Range Interpretation Comments Rubella IgG Quant (test 127.0 <8.0 IU/mL H code = 8014-3) VALENTE (test code = VALENTE) Rubella IgG Result Interpretation: </= 7.0 IU/mL Negative - Presumed non-immune 8.0 - 9.9 IU/mL Equivocal >= 10.0 IU/mL Positive - Presumed immune Lab Interpretation (test Abnormal code = 09791-1) [facility] CenterRUBELLA ANTIBODY, [id number] 10:15:00 Test Item Value Reference Range Interpretation Comments RUBELLA IGG QUANTITATION (BEAKER) 127.0 IU/mL <8.0 H (test code = 572) Rubella IgG Result Interpretation: </= 7.0 IU/mL Negative - Presumed non- immune 8.0 - 9.9 IU/mL Equivocal >= 10.0 IU/mL Positive - Presumed immune VARICELLA ZOSTER ANTIBODY, [id number] 10:15:00 Test Item Value Reference Range Interpretation Comments VARICELLA ZOSTER IGG (AL) (BEAKER) 3.6 (test code = 3197) VARICELLA ZOSTER RESULT INTERPRETATIONS: <=0.8 Al Nonreactive: Presumed non-immune to VZV 0.9-1.0 Al Equivocal >=1.1 Al Reactive: Presumed immune to VZVReticulocyte [id number] 10:12:00 Test Item Value Reference Range Interpretation Comments % Retic (test code = 5.3 % 0.5-1.7 H 34524-8) VALENTE (test code = VALENTE) Forming Roll Operator ID - [id number] Lab Interpretation (test Abnormal code = 24297-8) [facility] CenterRETICULOCYTE [id number] 10:12:00 Test Item Value Reference Range Interpretation Comments RETICULOCYTE COUNT PCT (BEAKER) (test 5.3 % 0.5-1.7 H code = 575) Forming Roll Operator ID - [id number] 10:06:00 Test Item Value Reference Range Interpretation Comments PHOSPHORUS (BEAKER) (test code = 3.1 mg/dL 2.3-4.7 604) Forming Roll Operator ID - TUAN [id number] 10:06:00 Test Item Value Reference Range Interpretation Comments MAGNESIUM (BEAKER) (test code = 1.7 mg/dL 1.6-2.6 627) Forming Roll Operator ID - TUAN CHEPATIC FUNCTION [id number] 10:06:00 Test Item Value Reference Range Interpretation [...] (test code = 12 U/L 6-55 347) Forming Roll Operator ID - TUAN CSpecimen moderately ictericRAD, CHEST, [...] Walker Verified Date/Time: 01/21/2020 10:03:32 Reading Location: [facility] Radiology Reading Room XR chest 1 view portable / [id number] 10:03:00 Interface, External Ris In - 01/21/2020 [...] Walker Verified Date/Time: 01/21/2020 10:03:32 [facility] W/PLT COUNT & AUTO [id number] 09:59:00 Test Item Value Reference Range Interpretation [...] PERCENT (BEAKER) (test code = 2801) PROTHROMBIN TIME/[id number] 09:53:00 Test Item Value Reference Range Interpretation [...] ABDOMEN, WITHOUT CONTRAST 2020-01-21 07:51:00Referring: Dr. [facility]ertFIN[facility] RE[facility] TECH[facility]QUE: MRI of the abdomen WITHOUT [...] Verified Date/Time: 01/21/2020 07:51:30 Reading Location: [facility] Diagnostic Imaging Reading Room - [place] [address] MR abdomen without IV contrast 2020-01-21 07:51:00Interface, [...] Verified Date/Time: 01/21/2020 07:51:30 Reading Location: [facility] Diagnostic Imaging Reading Room - [facility] F1 [address] [facility] Type and screen, [id number] 22:06:00 Test Item Value Reference Range Interpretation Comments ABO/RH AUTOMATED (BEAKER) (test A POSITIVE code = 2260) Ab Scrn (test code = 890-4) NEGATIVE [facility] CenterRAD, CHEST, 1 VIEW, NON [id number] 21:16:00 Referring: Dr. Rowdy Zhang for exam:->JVD [...] MDReport Verified Date/Time: 01/20/2020 21:16:28 Reading Location: [facility] B1 C013T Transitional Reading Room Cryptococcal [id number] 11:36:00 Test Item Value Reference Range Interpretation Comments Cryptococcal Antigen, Serum Negative Negative, Interference (test code = 86502-6) Lab Interpretation (test code Normal = 51277-0) [facility] CenterCRYPTOCOCCAL [id number] 11:36:00 Test Item Value Reference Range Interpretation Comments CRYPTOCOCCAL ANTIGEN, SERUM Negative Negative, Interference (BEAKER) (test code = 1828) CBC W/PLT COUNT & AUTO [id number] 09:56:00 Test Item Value Reference Range Interpretation [...] CONCENTRATION Decreased (CELLAVISION)(BEAKER) (test code = 3438) Forming Roll Operator ID - [id number] ID - Lizett OverholtUser comments: Slide comments: COMPREHENSIVE METABOLIC [id number] 05:46:00 Test Item Value Reference Range Interpretation [...] S NOT APPLICABLE FOR DIALYSIS PATIEN TS. Forming Roll Operator ID - MITCH LSpecimen moderately [id number] 05:37:00 Test Item Value Reference Range Interpretation Comments PHOSPHORUS (BEAKER) (test code = 2.8 mg/dL 2.3-4.7 604) Forming Roll Operator ID - MITCH [id number] 05:37:00 Test Item Value Reference Range Interpretation Comments MAGNESIUM (BEAKER) (test code = 1.9 mg/dL 1.6-2.6 627) Forming Roll Operator ID - MITCH LHEPATIC FUNCTION [id number] 05:37:00 Test Item Value Reference Range Interpretation [...] (test code = 9 U/L 6-55 347) Forming Roll Operator ID - MITCH Rodriguezn moderately ictericPROTHROMBIN TIME/[id number] 04:53:00 Test Item Value Reference Range Interpretation [...] is2.5-3.5 for patients wiht mechanical heart valves.CALCIUM, [id number] 04:45:00 Test Item Value Reference Range Interpretation Comments CALCIUM IONIZED (BEAKER) (test 1.14 mmol/L 1.12-1.27 code = 698) PH, BLOOD (BEAKER) (test code = 7.36 1810) Sodium, random [id number] 00:37:00 Test Item Value Reference Range Interpretation Comments Sodium Urine (test <20 meq/L code = 2955-3) VALENTE (test code = Reference Range: No VALENTE) NormalsOperator MABLE [facility] RANDOM [id number] 00:37:00 Test Item Value Reference Range Interpretation Comments SODIUM URINE (BEAKER) (test code = < meq/L 243) Reference Range: No NormalsOperator ID - MITCH LUrinalysis w/Microscopic 2020-01-20 00:30:00 Test Item Value Reference Range Interpretation Comments Color, UA (test code = Yellow 5778-6) Clarity, UA (test code = Hazy 5767-9) Specific [place], UA (test 1.017 1.001-1.035 code = 5811-5) pH, UA (test code = 5.5 5.0-8.0 5803-2) Protein, UA (test code = 20 mg/dL Negative A 96691-2) Glucose, UA (test code = Negative Negative 365) Ketones, UA (test code = Negative Negative 2514-8) Bilirubin, UA (test code = Negative Negative 13727-4) Blood, UA (test code = Small Negative A 93608-2) Nitrite, UA (test code = Negative Negative 5802-4) Leukocytes, UA (test code Trace Negative A = 5799-2) Urobilinogen, UA (test 0.2 mg/dL 0.2-1 code = 73320-7) RBC, UA (test code = 1 /HPF 60699-5) WBC, UA (test code = 3 /HPF 5821-4) Bacteria, UA (test code = Rare 47467-3) Squam Epithel, UA (test 3 /HPF code = 65089-9) Hyaline Casts, UA (test 3 /LPF code = 91995-9) Specimen Source (test code = 2795) VALENTE (test code = VALENTE) Forming Roll Operator ID - [auto]Forming Roll Operator ID - tech Lab Interpretation (test Abnormal code = 17675-2) [facility] CenterUrinalysis w/Microscopic + Reflex to Culture 2020-01-20 00:30:00 Test Item Value Reference Range Interpretation Comments Color, UA (test code = 5778-6) Yellow Clarity, UA (test code = 5767-9) Hazy Specific [place], UA (test code = 1.017 1.001-1.035 5811-5) pH, UA (test code = 5803-2) 5.5 5.0-8.0 Protein, UA (test code = 93775-8) 20 mg/dL Negative A Glucose, UA (test code = 365) Negative Negative Ketones, UA (test code = 2514-8) Negative Negative Bilirubin, UA (test code = 75282-5) Negative Negative Blood, UA (test code = 87249-6) Small Negative A Nitrite, UA (test code = 5802-4) Negative Negative Leukocytes, UA (test code = 5799-2) Trace Negative A Urobilinogen, UA (test code = 0.2 mg/dL 0.2-1 28260-2) RBC, UA (test code = 48483-1) 1 /HPF WBC, UA (test code = 5821-4) 3 /HPF Bacteria, UA (test code = 07545-4) Rare Squam Epithel, UA (test code = 3 /HPF 96186-7) Hyaline Casts, UA (test code = 3 /LPF 00010-8) Specimen Source (test code = 1287) Lab Interpretation (test code = Abnormal 88891-5) [facility] CenterURINALYSIS W/ REFLEX URINE [id number] 00:30:00 Test Item Value Reference Range Interpretation [...] SOURCE(BEAKER) (test code = 2795) URINALYSIS W/ [id number] 00:30:00 Test Item Value Reference Range Interpretation [...] /LPF 514) SOURCE(BEAKER) (test code = 2795) Forming Roll Operator ID - [auto]Forming Roll Operator ID - techActin (Smooth Muscle) Antibody, [...] of patients withautoimmune hepatitis (AIH) type 1, sbyabrctikefn44 % of patients with autoimmune cholangitis,lis sherine mately 30% of patients with primary biliarycirrhosi s, and approximate ly 2% of healthy people.High beatriz ues are closely correlated with AIH type 1. VALENTE (test code = Performing Lab VALENTE) EZ [employer] [facility] [address] [place] [address] Mark Encarnacion MD, PhD, AMINA Lab Interpretation Abnormal (test code = 16986-0) [facility] CenterZinc2020-06-24 20:06:00 Test Item Value Reference Interpretation Comments Range Zinc (test code = 39 60- 130 mcg/dL L This te st was ) developed and i ts analytical performance characteristics have been determined by [employer]. It has not been cleared or appr jean-claude by theFDA. This assay has been validated pursu ant to the CLIA regulations and is used for clinic al purposes. VALENTE (test code = Performing Lab VALENTE) *BEATRIZ [employer] [facility], [address] [place] [id number] Jorje Jauregui MD, PhD Lab Interpretation Abnormal (test code = 94511-0) [facility] [id number] 16:12:00 Test Item Value Reference Range Interpretation Comments Case Report (test code Surgical Pathology = 104) Report Case: [id number] Authorizing Provider: Sylvie George MD Collected: 01/17/2020 08:15 AM Ordering Location: [address] Received: 01/17/2020 01:50 PM Service Pathologist: Humaira Mendez MD Specimen: Duodenum, biopsy ADDENDUM (test code = q2hidTXcSPAxuEByXfFoOO 3381) YyRKSuy9pzZZDydZBbDzLe MzNcZnRuYmpcdWMxXGRlZm Xmy9ffj788mGLtl8dzQQPv BxT0nQOuVRSdtVWwS212JP UlUCctk9kbf1QxTLEhkLTp c3B8LJJIuhmfaMb0lGzrN9 8sj1I8PkwpM4xbWHMjKTXb O6WuOA7lAMEpFwn8GOC9DM F6BIEqDBKxA4CgHK1hTRYz fBJdJDj8d7scxXphXCCqPO K8x3fxCFpntzJkKZ8jyq4w pJf9j2rxhnMfFDCoXKWndR UQDJXiB8TvdRguJu3zyYv7 uOskWfryCBY9Ftx0CU1nlp 43hhv7aFgiMMSboclkKtR9 ZNbnOOIiixdjYXf9SIniDP XdeWC7JVRlyRCfP0UzGMGq QX9uzzh4JEP7VMvwSYTaDn S1VMLfpOTvCJCutBviDDsx y734CKC4VhEtEJ7sL2Szi0 X8sV5etYWzGZInzZFxNgOg HKIeoh9gsBCiUInor5TxXE V8daR0iZTltFSfYHXiAZ84 Jaybp6KyFwxjFJA0TVYcyc Kup5Abg0cjWuMicgIkU8cy P4TqJKBrVJVjKLWsEjJray Hkv6Lxw6CjdSBlkYl5g2gx OINmRARwqDdaj6rsPHW6NX KjG9F7aTUca7dlQYbdKXRx nHI2gqL7RVOhtDAkW2TceQ 9wLFXbVU4plva3g7dcCIZ6 GBxcXAGyVzI8sbX6GITgoS SbWWBjvRfeOOyhq660BQM2 VzWrYDHxu5GgN4YucCrgK3 9qwJanW74qYOGvpFderC6g kFidbN9nCdRzClJiNMvaAW JkXHBsYWluXGYxXGZzMjBc bGFuZzEwMzNcaGljaFxmMV qiCcAvEENwYLsaD0bbTqMr OgOtJPUSOXnMNDRHMI6PNZ 1FLNaVJRvKW4TPAXCDFrYZ RVBPUlQgVEhFIEZJTkRJTk dTIElOIFRIRSBERUVQRVIg YBRPLUbYEE6UAFLLEIAVBD 6TJ7tlLC7QPBbANzRsRVbH RQARDcVIJRPLSWrYO5HIEc pccGFyXHFsXHBsYWluXGYw FUQhQyRlqHmgbQ6rUeIpSo CgZFpmEN9mJUWiH8pekQGn REXnGGMeY9eiWcXkpC1agV xmMVxmczIwXHBhciAgRFVP NYHYIB6gYUGSAK8TG23JAN MgQklPUFNZOlxwYXIgICAt YDZZKLWFHLXtEaANJ9WVMa AZFeQEOZKwEWETHO9DBKLK M4DCFJFeZVXXR6hQR2WKPo LtL1JnGB2JZIGXYOIJL4NL Bg1XXLJCZJkwUNSyCTVcEY 9HYEZJYFRRKnPNIS4STYCY TElBQyBESVNFQVNFIFNFRU 5ccGFyICAgLSBOTyBHUkFO VUxPTUFTLCBEWVNQTEFTSU ZvB8VaAMWNWUdCXC6QMAKH RUVOXHBhcn0= DIAGNOSIS (test code = a4mdjAVnJBVaa5dbEAQknV 3220) FuZzEwMzNcZnRuYmpcdWMx KUzoseGyMCyme9RiZ3XnFg AwMFxhbnNpXGRlZmxhbmcx SQZuDLG4asIgXFEqSSmhGS DzBPsvLu3mgNCcmScvUxIk AJLru3nxjyYQuabtnQq4h6 nzZJQyKlJ3fYXxHStiH2wo meXuaHZnYVMcSWz1oM53XR ErmM3xfEOpZSaabpFyOxH2 WYdyJWEzKuP0HOJedZGzGG WzK2koHKMoERxlQGIzMQox yPZeIFY0vTuci8T3pBHcqM YzlFbgNnOtOwFsHVSSv1Dt ABo0eRbwC8KaPDAfUiK5vI QgUGFyYWdyYXBoIEZvbnQ7 jE23HYvhnaB0lZZvh5Zan3 0tm253eU5yxLZmFBZ3XHSs UVFccXSeNTUtCQB5XANcjZ YiH3t9NmQywEViR1K6MbMq zBGzD8F7YvLxhGAvO6E4Pb CuzXTmKAUpbLWdPj2wlSSd dYFfml4skk03HAA5x1PkpW imXKK7FAY3LxNzWe1hpNYp NWXpYS7zQbAqxGGdFHClgh 38kUxrQHhnbbUmoU7wNeDi CTSteQRxYBPmBS6loPStZI QxaQ8nvirvPHYfDkLqhhbq NPKhoRtzvtFxXr5vlWpfZI Q8QYguR2zlsB1dGrG6SGee S4nadV0fWDp0GYlhmMH2VJ UszC4zJK9hmyilh6cxEzAr NZ4wswvrq1yqGqCqGV1dgu u3f4uoRrVsBA1hwcjyf4gq NzIwXGhlYWRlcnkwXGZvb3 BiekevHDDcu9RfE8FkaMbc I32ycWnjP57gPFYtyOdtsB 9jfXhbnO7wNaAzLhJkWOqg bFxwbGFpblxmMVxmczIwXG bsapfrLLGsBFrlX7dcBdJt WCVmhZolZNrxc8BaDSWsOT WmRhUiRPKMQZGWQW8kPMGW UX2YB51TQXAjCsrEBBVWJe fxCNQsHCDjP3UNUINXMWBY CTjbJtZPV65LSeHJJR7ONF DHMVzLMCTTU6DXHZ0BR06I LQCUBOFNWLzZW0USVWAdWv 8PUG6TIPSkYEWFGADOCPXK VGzyKOGiqDNhQJUhos33IE F0MoNej5P6FFT1USDkVJFe q2smSRBnsUGoLiClRpTjEu OwMsoweXThKQUwMaMqw7hx l445zAHeu8snTJJxRiT7qS RjOWJcdRRjM266QECcDQco p2nga1FxJNUchVEmi4B8NW DKlzmitTs3wBlzA01ez1H1 LkujD6bgSZScZSFzC5YoDF 6yRHRgIbh1CNL7HAH2IUHu QOPgA8EbMM3lZNFmbMAhLO e1n5nmcNwlNVGoDKD4b0qa OMgrigTcVH8gjv5puZo9o9 xjczEgRGVmYXVsdCBQYXJh E7SjeMreSs1zpAk6nSfjWo yuFPG2Uuz9KC8wgw67fum4 eCzyUPWimsgzDhW5DUzlSA FrtmwzUXb9YOdlXISvkGD7 DKZgmODbO9QrBPMfVP5gbb n5OWM1SXhzDKWaAyD8AXZk tKMqNMTiqUbcHTayv438SF U1FgGzUA7nY5Urd2U0sN3r aXRcZGVmdGFiNzIwXGZvcm 6mxTYkHCwye4VcLXB0lhZ5 tTPlpRFjBOOwTrM9HLlsFN 6ipa64WNJdJPF8lj4nuQJo tJtlrrVouDGvLAipZ4CeQL Xbl394SXArK1ZoJWDzp2R1 mwGfEjUrFHZafUR6ffC6MS RiJQ6yyhwht9roUCyuQNcp DTLxvuJ2qbX7WEXazGGnY3 RevO4vXXFdQP4cgzxov7sv JXS7LFlfHIZzKWD1GtTmNH Qca7Ytkjb9GzGjq9YgwNEb MIajV37nf782AQJqgxXxO2 xwbGFpblxwbGFpblxmMFxm hwL9WHIbNIpllvgwDRCrAR slO8ttXvRfFQRatNvpTPua p7ByCJDnWWQaKyZvlZCdZB DnJyg5PBZwhRIxSFDxDhYo C7erlxdtOpOZTHYiy0wvP7 ozpVWHeNXzG4VgGVepqtLk CVueNBjsIND3YLO2Pi96Db K6DZEnmc29 CPT Code(s) (test code e9vjrEUcDDJfiYVaGpWhMV = 3357) BtJCWof2ucJWScgAZlTaIf MzNcZnRuYmpcdWMxXGRlZm Oar3xvq393vBUyh0wcWQTh KjT8mIZzNPLqkCNtU117a8 bta2vnltDahHA7YPNwGSK7 RMcsshXkwdK7HNyehSJqTo Z9NZwtidFjQBrjtbLjovFa Ldx4QDNsX655UWH5vAgml4 hvHFU6AJNlFMWrNoHlZg6y bJDeI665YHFvQCDTKSPwoQ m4LTGvstChozUvdSVCn487 K429t1doDVMhhsUbpOwFuz xzc1ucM856EGAkbOYhzyCr VsIdCOUseMKvyOY1TSEbPI 3xlwgeVrGkLM6brzzmKeBz AC5hlhg7XsNiRU8zohjzMs ZbEHvvOXIspbbkZOXfo6Gp umhuSO1bV3Fbb1S9xH6izS TwXEWmrQVzBzZlUUHddd5r vJNuFIonx9RvFLJ1gnC9sX GgaLChNFUhNX18Eoahl4Xr DmqhJVR8AIOrsiIys2Oio9 epVdVdooOkB8akC6JuRPYa RBMdUKVwNtQmwiNed4Cqq3 DiaMIieTy3e2tzMUQpHFOq wGrnk2yyWYT4WPBiG8H3qG Ljc8xxKOlgOBUyuDY8ynrj MVpgCHUmrtV2yoyaCNkxUE BznFQ6faxfURjhYVGzRuU9 mzdfLPfhBZHpIEL5JYzwy9 31XWJ1JLibOkvcHMztLZFa bmNvbnRccGduZGVjXHBsYW luXHBsYWluXGYwXGZzMjRc eNdwyOopfC0uPkZkMqOkTU muIN5lIYFpK0cksOGzYNPm EWMfR8zoLeOkpT5tjBvaWG ieeqTbADu1RnV8IHEfyn9= CLINICAL HISTORY (test a3kwyOCnPYHybSIjZmCjLY code = 3356) SwVCQfv2rvCGUcgWUlXoGh MzNcZnRuYmpcdWMxXGRlZm Jfl0sww983xYQqn8hwEARs AaC2zDCvASQbbXGuM145QF SeGDzxy2mdm6XbQJNhmCPo j3Y1VJQOurhucOu4jEzmX7 3ug5P2BladV9qgRDUzAZql FAAaNIwfqXJvUKS8RQViCR T1DZoybsNigcG4RAgctSRo XwR0FOj6o1oyoIwpNITySJ U2m7zdCJadegYyPX5xnf8g oQm9j5yadzAdQQIuPRLdtS TLVUYvH5XvoMayWk3fnFe4 fCukSqjeFDD8Tst2KJ2xae 66cjy6gGkxYBByuwziGuC0 OLhzZWHrfybvSWq2CQajWZ JnbDcyMFxtYXJncjcyMFxt YXJndDcyMFxtYXJnYjcyMF neOGYkOBN6TBsnu075JQR5 FTvkb8hes2dbmZMbQxq2IJ DtKpDrOtssLXaze2Amf9fd KTIeys9oJAW0mKMeeEsdh5 R1kGJjYEEaeURjjsBlQEAf JwT2WVmzGZ4qiv73OPDlLL I0qa5ysFJbpAraghKmaVPz SFjcD0TkKCRnl020OJWqJ1 IcUTJso7R1jcUnFnYtYWBx aJI9pbT9HUYjXSs7vIHwpo S1ezPvhSLiX3jjiE12CaFc aSFdY0CgxS66VlMrbFRbF6 FzxX24RkQdoXKvU1VedS52 OmOcaOPiFWXzkRJxSp7hoN HhcNPuh6DtkJLtBPxcA96v g471GEUntmYcQ5whlKYbcx xwbGFpblxmMFxmczIwXHFs XHBsYWluXGYwXGZzMjBccG rrtW6bAjKrXyLkJKPLpn1n XVO3tyR0PHQxuDCcEDMlLZ 6uO68wqObkQwzciXM9TTUm MAAyu6llfg7oN72kmLHzaA EkBBPiQBKspbPvfE1rhB4s HLLtPBfjq0JcpezhLD6akI lhXHBhcn0= SPECIMEN SOURCE (test s1amwUXnIHCsiCNjLtUyAW code = 3377) KsBWLok4iqYMNsxNCiQuWt MzNcZnRuYmpcdWMxXGRlZm Ylh7uzo979hUFtf3boELMk VpF9dGDiSNGktWQqY040l3 nxf5hhafKpdOJ4DRPoZCV2 POftyiMhovF2ILxykCOaTk T6YMscosPlQYtgmoXylfCu Nfb1KTExS545KQG3vRvvv3 oaVTA8MRSwCZNaWuIyCi2h cYThH716VCHnHDMWBGWnvV m5YTNbxhPjvlKmaPFDb377 A215c5rsZDSgogXzpHpIln kvt9xkY684PYItzXVyqfGr YzFfWFXcbPZwqNQ7VHXcPA 1rkdqoDkRzVT6nnfftZtJp PG3pxkz2ToPcNC8ssmrpVy GmSPmeDANtafzdYDItd6Oe lwjpOB7sP6Dhx7Q4nX1xwJ LsJYQtnGHdXcCqAQAiju5s hTYuZCjqd5KcVYJ3ezI0tB KedUGtHDPuHQ10Weaog3Sn UiyxQWR2WXTqhhPvk8Lig9 kqRbWdifRcN5vlR7EnAVTw ECNeDWVjCeTgalSji0Ycb2 ZgkXWxjSx1m2qfBWAfIPVl mFwhs4muLDO8IVIxL7W0dW Ytk6dgRRahIOAjbYZ9peqa ASeoXBTpkaC0ayfzHAfdKZ HjdBF8nlgnSBpiXDIbDsR4 flizDAagWYEvBPZ2KKfhx6 47IMY0SKklNjhcPDolQANj bmNvbnRccGduZGVjXHBsYW luXHBsYWluXGYwXGZzMjRc kZyhaCnpiA5iOzNpFlJhNJ jnEX7yVXPfG8urdGRaNMZw AYPhB1auTmGeeQ3cnFinKM byqwWgIADmDHM3g1ZjhcVw TaJdiN8pp4kgsITxvW== GROSS DESCRIPTION (test e8egwUMeGJBiiCUtTePzVI code = 3366) HsTQCcv3pxFSDwtIQrMeAg MzNcZnRuYmpcdWMxXGRlZm Mrt4kxt427dNHxc1ynDNYg AgF1uGCzAIIgxOPpP486RH IhYFfdn3wyq0TlYQNttQAa y3G3QGROxgduuBa1qZawX0 0nn0N3CqkhM0txOFMeAYos FODyISclwTZqPWA5TSDhGX S9BHidngNhwqQ4XFefyMPb YrY7KQw2v3akdQqhRHJiSW M6p8hdGYcptyWuJF7xrv4f nPu8e7cmoqKuLUKpASUqjC BZOKFvG8HnlEflTj2aiEs0 vTcqCnynQWA3Kts2ET8vnr 48pso1sKzsFOXdbithXaI9 DLqhAEIpmwccCSr0PFtsRJ JnbDcyMFxtYXJncjcyMFxt YXJndDcyMFxtYXJnYjcyMF tnLRCcJPG9NVtvb779UJV4 VBssw7nfn6gwkXRrYwq3PR EvQfAuZqpqZMgii5Dwd6ay DHPpap9gGWL8fYEmlQzqo5 Z9oZBkVGHflLQfguRlRHBp XpL3CBxyZZ5jyw77BEViVB W2il0twTZwjLexfxRluNCe AWuvP4QsCWGft333YXKxQ6 EzOXSbn7V0fySjVyEyFGGf iND2hiU6LKEiICn2cXYcca H5syEkmYJrD7raiG06NtJt kDKrD6WiyL56OtNhdYMfE6 XtmB53JtTxmKDkQ6CsbN29 EdSsfUWnGRAabFCrAf7guS LmnREmy4RvnHPjTLzqO59c l668HCMsknQiS8oixOMpan xwbGFpblxmMFxmczIwXHFs XHBsYWluXGYwXGZzMjBccG vmjR1mWnRqNaGdKCEGQcIZ tIEsb2BuT4jkVG4ecWVwyd JdMEm5BUTibM0rFx9ulPAj pE3yJEDmPWwdNUGjTPUxIi NydEZtPLsySDZ6wBKpVYHd OOXqMMEhTU60G8GglkMiOQ keGNCeVEZcdT9aPI56bLQr ciBhbmQgIlxwbGFpblxmMF ozrcHkFZJ5l2SoonSjYxPc zuJhZ78sb2nnhLQfs0Omd9 3dHAUpgc9stZ5uPXvlgTGa shnsISfwloMvWW27N87xQW jlZ208LDLsUDifwQAmcfbt MFxmczIwICBwaWVjZXMgb2 QxcGfou0FvFC6zQTV3bygu ZyAwLjMgeCAwLjIgeCAwLj ZcB11pAWhiaKEqqdxaUVch xwOgBWPaEBKneWEujD6mqb RjuyHlpEXgiCF0BLWfMH22 eTSdgWijFa7joP34oT7yHM LsdDWdWVRhv29kgX8iWPZk UQLyEGW4QSClfIkfzW7pNu ArKsDdMFCCCC9vNCrDY7Jg XHBhcn0= MICROSCOPIC DESCRIPTION c2ljnOPeQWLthDKzKoPfQV (test code = 3371) ZiCWSmw3jaWLUsoGLuKvGd MzNcZnRuYmpcdWMxXGRlZm Azg8xan311gOGbo8kbWQVc EmY6ePCqDJMkiOWrC428d9 lhe5hsbaXfpYA1OJShMCA4 NWyjyxEawcT9TAuamCTmOw G4BGlhsuWpKXacsvOzjrNo Avp4WMXiI946MEN4sMzet1 uqRET5SUJpZMKjZeVjKj1a iLTrU757YUWcFOLSBHFdhF n3IGLzzoNpllKvqMQGx439 C225f6lrTAQqsbHykAhHvp sqw9ywU756FUOexGByhtUl XoCqDPIrkVWiaPO8CUHdRJ 8pqlgkGpZiOF7najtuQaYj CO7tpni5ZzPkHD5ocansHs OqZFwlDKHhwhunMEQkl2Xn kduqQW1eV1Zib2Q5uW2krL BfRIYiwFZyKoWpMBHjdh8o cBTgVDhja5YxXKI2fxU0oY SsiMWtDOKgGT39Txfjy7Kb AeoiMHX6KCImzhIst8Gnk2 ltLzFohbTjH0riI2LfFAEu UWCuPSWsZhWcjfLim2Lyr6 ZnlSVacPl0w9sxBNTcEEAo oNdvm8yjSDO3UZAcL9D5wG Knv9gcGZqwDLQclUW4hoex KPwiKJFcgdN5axexBPsiHY MikIX4ybfqVWzoMCJtGjK3 aypzMKalCCFxZSE1CAbnq9 77LDH3TYgqGpywSZykJCQe bmNvbnRccGduZGVjXHBsYW luXHBsYWluXGYwXGZzMjRc rIjorYnkfT0jOpYyLmJpQI dnJN2xQTQxY8iisKYtHARy HLRiS1qnMsNxxU1lvEkwSC qlepIsQRFBXgIVPt4KFEhy YXJ9 [facility] [id number] 16:12:00Surgical Pathology Report Case: [id number] Authorizing Provider: Sylvie George MD Collected: 01/17/2020 08:15 AM Ordering Location: [address] [address] Received: 01/17/2020 01:50 PM Service Pathologist: [...] FOVEOLAR METAPLASIA Signing Pathologist Direct Phone Line: [phone] signed by Humaira Mendez MD on 01/18/2020 at 3:50 [id number]: upper endoscopy, biopsy and colonoscopy Pre and postop diagnosis: anemiaA. Duodenum; biopsyA. The specimen is received in formalin labeled with the patient's name, accession number and "duodenum" and consists of one garduno-pink mucosal-covered pieces of tissue measuring 0.3 x 0.2 x 0.1cm. The specimen is submitted entirely following filtration in a cassette A1. HS/plPERFORMEDBlood gas, [id number] 16:03:00 Test Item Value Reference Range Interpretation [...] % Lab Interpretation (test code = Abnormal 14146-7) [facility] CenterBLOOD GAS, [id number] 16:03:00 Test Item Value Reference Range Interpretation [...] (BEAKER) (test code = 1819) 28.0 % [id number] 15:05:00 Test Item Value Reference Range Interpretation Comments Ceruloplasmin (test code 21 mg/dL 18-53 = [id number]) VALENTE (test code = VALENTE) Performing Lab *[facility] [employer] [facility], [address] [place] [phone] Jorje Jauregui MD, PhD [facility] CenterCarbohydrate antigen 19-9 (CA 19-9)2020-01-19 12:51:00 Test Item Value Reference Range Interpretation Comments CA 19-9 32 U/mL <34 This test was (test code = performed using the 93350-3) Siemens Chemiluminescen t method.Values o btained from different assay methods cannot be used interchangeably .CA19-9 levels, regardl ess of value, should n ot be interpreted as absoluteevidenc e of the presence or abs ence of disease. VALENTE (test Performing Lab code = VALENTE) EZ [facility] [address] [place] [address] Mark Encarnacion MD, PhD, AMINA [facility] CenterPROTHROMBIN TIME/[id number] 11:28:00 Test Item Value Reference Range Interpretation [...] patients wiht mechanical heart valves.MM, U/S, BREAST, [id number] 09:52:00Referring: Dr. Rowdy Zhang for exam:->liver transplant [...] Brooks MDReport Verified Date/Time: 01/19/2020 09:52:28 Reading Location:[address] Mammo Reading Room US breast thlhsiuzl3825-82-70 09:52:00Interface, External Ris In - 01/19/2020 9:54 [...] MDReport Verified Date/Time: 01/19/2020 09:52:28 Reading Location: [address] Mammo Reading [facility], WITHOUT [id number] 08:09:00Referring: Dr. Rowdy Wileyesthesia:->NonePlease specify abdominal organs:->AdrenalFINAL [...] Verified Date/Time: 01/19/2020 08:09:04 Reading Location: [facility] Diagnostic Imaging Reading Room - [place] [address] [address] abdomen without IV contrast 2020-01-19 08:09:00Interface, [...] Verified Date/Time: 01/19/2020 08:09:04 Reading Location: [facility] Diagnostic Imaging Reading Room - [place] [address] Electronically signed by: JOHN CROCKER MD on 0 01/19/2020 08:09 [facility] HospitalCALCIUM, [id number] 07:59:00 Test Item Value Reference Range Interpretation [...] Shaq GARCIA MICHAEL(150) on 01/19/2020 7:03:55 [facility] HospitalCOMPREHENSIVE METABOLIC PANEL 2020-01-19 05:21:00 Test Item [...] S NOT APPLICABLE FOR DIALYSIS PATIEN TS. Forming Roll Operator ID - LASpecimen moderately hpyypsgRYHLGYQXLD5570-92-31 05:04:00 Test Item Value Reference Range Interpretation Comments PHOSPHORUS (BEAKER) (test code = 3.3 mg/dL 2.3-4.7 604) Forming Roll Operator ID - [id number] 05:04:00 Test Item Value Reference Range Interpretation Comments MAGNESIUM (BEAKER) (test code = 2.0 mg/dL 1.6-2.6 627) Forming Roll Operator ID - LAHEPATIC FUNCTION [id number] 05:04:00 Test Item Value Reference Range Interpretation [...] (test code = 10 U/L 6-55 347) Forming Roll Operator ID - LASpecimen moderately ictericB-TYPE NATRIURETIC FACTOR (BNP) 2020-01-19 04:59:00 Test Item Value Reference Range Interpretation Comments B-TYPE NATRIURETIC PEPTIDE 2455 pg/mL 0-100 H (BEAKER) (test code = 700) Forming Roll Operator ID - EDWIN BCBC W/PLT COUNT & AUTO [id number] 04:46:00 Test Item Value Reference Range Interpretation [...] (BEAKER) (test code = 2801) U/S, RENAL, [id number] 01:26:00Referring: Dr. Rowdy Zhang for exam:->Re-examine L [...] Sneed MDReport Verified Date/Time: 01/19/202001:26:59 US renal cqlzngcb2782-22-09 01:26:00Interface, External Ris In - 01/19/2020 1:29 [...] Maira Sneed Verified Date/Time: 01/19/2020 01:26:59 [facility] HospitalEosinophil [id number] 22:11:00 Test Item Value Reference Range Interpretation Comments Eosinophil Smear (test Rare EOS =less than No EOS seen A code = 83433-0) 5% WBCs seen are EOS Lab Interpretation (test Abnormal code = 47715-6) [facility] CenterEOSINOPHIL SMEAR, [id number] 22:11:00 Test Item Value Reference Range Interpretation Comments EOSINOPHIL SMEAR, URINE Rare EOS =less than No EOS seen A (BEAKER) (test code = 5% WBCs seen are EOS 1851) SODIUM, RANDOM [id number] 22:04:00 Test Item Value Reference Range Interpretation Comments SODIUM URINE (BEAKER) (test code = < meq/L 243) Reference Range: No NormalsOperator ID - EDWIN BCreatinine, random urine 2020-01-18 22:02:00 Test Item Value Reference Range Interpretation Comments Creatinine, Ur 181.3 mg/dL (test code = 2161-8) VALENTE (test code = Reference Range: No VALENTE) NormalsOperator ID - EDWIN B [facility] CenterProtein, random [id number] 22:02:00 Test Item Value Reference Range Interpretation Comments Protein, Urine (test code 45 mg/dL 0-14 H = 2888-6) VALENTE (test code = VALENTE) Forming Roll Operator ID - EDWIN B Lab Interpretation (test Abnormal code = 33695-3) [facility] CenterCREATININE, RANDOM [id number] 22:02:00 Test Item Value Reference Range Interpretation Comments CREATININE URINE (BEAKER) (test 181.3 mg/dL code = 375) Reference Range: No NormalsOperator ID - EDWIN BPROTEIN, RANDOM [id number] 22:02:00 Test Item Value Reference Range Interpretation Comments PROTEIN, URINE (BEAKER) (test code = 45 mg/dL 0-14 H 1569) Forming Roll Operator ID - EDWIN BURINALYSIS W/ [id number] 22:02:00 Test Item Value Reference Range Interpretation [...] (test Urine, Sterile code = 2795) Collection Forming Roll Operator ID - [auto]Forming Roll Operator ID - techHepatitis B core antibody, [id number] 16:02:00 Test Item Value Reference Range Interpretation Comments Hep B Core Total Ab Nonreactive Nonreactive (test code = 50689-9) VALENTE (test code = VALENTE) Forming Roll Operator ID - CHARO F Lab Interpretation (test Normal code = 05539-6) [facility] CenterHEPATITIS B CORE ANTIBODY, [id number] 16:02:00 Test Item Value Reference Range Interpretation Comments HEPATITIS B CORE TOTAL ANTIBODY Nonreactive Nonreactive (BEAKER) (test code = 497) Forming Roll Operator ID - CHARO FECG 12 [id number] 14:19:40Interface, External Ris In - 01/18/2020 2:19 PM CDTVentricular Rate 62 BPMAtrial Rate 62 BPMP-R Interval 138 msQRS Duration 86 msQ-T Interval 452 msQTC Calculation(Bazett) 458 msP Rutherford 59 degreesR [place]utherford 32 degreesT [place]ford 56 degreesNormal sinus rhythmLow voltage QRSNonspecific ST bpbgojsounb61 JUN 2020 11:05Nonspecific T wave abnormality Nonspecific T wave abnormality, improved inQT has shortenedConfirmed by MD FARHAT, JESSIE ([id number]) on 01/18/2020 2:19:38 [facility] Cytomegalovirus antibody, [id number] 13:49:00 Test Item Value Reference Range Interpretation Comments CYTOMEGALOVIRUS, IGG Positive Negative, A (test code = 3429) Equivocal VALENTE (test code = VALENTE) CMV IgG Result Interpretation: </= 0.8 Al Negative 0.9-1.0 Al Equivocal >/=1.1 Al Positive Lab Interpretation (test Abnormal code = 33630-8) [facility] CenterEBV-VCA antibody, [id number] 13:49:00 Test Item Value Reference Range Interpretation Comments GABRIEL CHING VIRAL Positive Negative, A CAPSID ANTIGEN IGG (test Equivocal code = 3415) VALENTE (test code = VALENTE) Gabriel Ching Viral Capsid Antigen IgG Result Interpretation: </= 0.8 Al Negative 0.9-1.0 Al Equivocal >/= 1.1 Al Positive Lab Interpretation (test Abnormal code = 31325-3) [facility] CenterEBV-VCA antibody, [id number] 13:49:00 Test Item Value Reference Range Interpretation Comments GABRIEL CHING VIRAL Negative Negative, CAPSID ANTIGEN IGM (test Equivocal code = 3418) VALENTE (test code = VALENTE) Gabriel Ching Viral Capsid Antigen IgM Result Interpretation: </= 0.8 Al Negative 0.9-1.0 Al Equivocal >/= 1.1 Al Positive Lab Interpretation (test Normal code = 56268-7) [facility] CenterCytomegalovirus antibody, [id number] 13:49:00 Test Item Value Reference Range Interpretation Comments CMV IGM (test code = Negative Negative, 3437) Equivocal VALENTE (test code = VALENTE) CMV IgM Result Interpretation: </= 0.8 Al Negative 0.9-1.0 Al Equivocal >/= 1.1 Al Positive Lab Interpretation (test Normal code = 28217-5) [facility] CenterCYTOMEGALOVIRUS ANTIBODY, [id number] 13:49:00 Test Item Value Reference Range Interpretation Comments CYTOMEGALOVIRUS, IGG (BEAKER) Positive Negative, Equivocal A (test code = 3429) CMV IgG Result Interpretation: </= 0.8 Al Negative 0.9-1.0 Al Equivocal >/=1.1 Al PositiveCYTOMEGALOVIRUS ANTIBODY, [id number] 13:49:00 Test Item Value Reference Range Interpretation Comments CYTOMEGALOVIRUS IGM ANTIBODY Negative Negative, Equivocal (BEAKER) (test code = 3437) CMV IgM Result Interpretation: </= 0.8 Al Negative 0.9-1.0 Al Equivocal >/= 1.1 Al PositiveEBV ANTIBODY, [id number] 13:49:00 Test Item Value Reference Range Interpretation [...] Negative 0.9-1.0 Al Equivocal >/= 1.1 Al [id number] 13:35:00 Test Item Value Reference Range Interpretation Comments T3, Total (test code = 3053-6) 51 ng/dL 48-159 Lab Interpretation (test code = Normal 58657-3) [facility] CenterT32020-06-23 13:35:00 Test Item Value Reference Range Interpretation Comments T3 TOTAL (BEAKER) (test code = 656) 51 ng/dL 48-159 PET/CT, CARDIAC PERF REST AND [id number] 12:45:00Referring: Dr. Rowdy Zhang for exam:->pre op cardiac clearance for liver transplantFINAL REPORT PROCEDURE: MYOCARDIAL PERFUSION PET IMAGING (Rest/Stress)CPT CODE: 09401 INDICATION: Evaluation for liver transplant CARDIOVASCULAR PROFILE:Symptoms: [...] no prior study for comparison. Signed: [facility] Verified Date/Time: 01/18/2020 12:45:40 Reading Location: [address] Reading Room [place] Myocardial Perfusion Pet/CT (Rest & Stress)2020-01-18 12:45:00Interface, External Ris In - 01/18/2020 12:47 PM CDTFINAL REPORT PROCEDURE: MYOCARDIAL PERFUSION PET IMAGING (Rest/Stress)CPT CODE: 47150 INDICATION: Evaluation for liver transplant CARDIOVASCULAR PROFILE:Symptoms: [...] MDReport Verified Date/Time: 01/18/2020 12:45:40 Reading Location: [address] Reading Room [facility] HEPATIC FUNCTION [id number] 10:29:00 Test Item Value Reference Range Interpretation [...] (test code = 9 U/L 6-55 347) Forming Roll Operator ID - CHARO FSpecimen moderately ictericCBC W/PLT COUNT & AUTO [id number] 08:43:00 Test Item Value Reference Range Interpretation [...] CONCENTRATION Decreased (CELLAVISION)(BEAKER) (test code = 3438) Forming Roll Operator ID - [id number] ID - Lizett OverholtUser comments: Slide comments: [id number] 07:29:00 Test Item Value Reference Range Interpretation Comments MAGNESIUM (BEAKER) (test code = 2.1 mg/dL 1.6-2.6 627) Forming Roll Operator ID - CHARO FBASIC METABOLIC [id number] 07:29:00 Test Item Value Reference Range Interpretation [...] S NOT APPLICABLE FOR DIALYSIS PATIEN TS. Forming Roll Operator ID - CHARO FSpecimen moderately ictericAnti-Nuclear Antibody (REILLY) 2020-01-17 10:54:00 Test Item Value Reference Range Interpretation Comments REILLY (test code = 59546-2) Negative Negative VALENTE (test code = VALENTE) Test performed by IFA method.Test performed by IFA method. Lab Interpretation (test Normal code = 00189-4) [facility] CenterANTI-NUCLEAR ANTIBODY (REILLY)2020-01-17 10:54:00 Test Item Value Reference Range Interpretation Comments ANTI-NUCLEAR ANTIBODY (REILLY) (BEAKER) Negative Negative (test code = 418) Test performed by IFA method.Test performed by IFA method.[id number] 10:49:00 Test Item Value Reference Range Interpretation Comments RPR (test code = 56022-5) Nonreactive Nonreactive Lab Interpretation (test code = Normal 96888-3) [facility] CenterRPR2020-06-22 10:49:00 Test Item Value Reference Range Interpretation Comments RPR SCREEN (BEAKER) (test code = Nonreactive Nonreactive 420) CBC W/PLT COUNT & AUTO [id number] 10:00:00 Test Item Value Reference Range Interpretation [...] CONCENTRATION Decreased (CELLAVISION)(BEAKER) (test code = 3438) Forming Roll Operator ID - 6000Operator ID - Alem Mars comments: Slide comments:BASIC METABOLIC [id number] 05:16:00 Test Item Value Reference Range Interpretation [...] S NOT APPLICABLE FOR DIALYSIS PATIEN TS. Forming Roll Operator ID - PIAYA LSpecimen moderately hjejuqtDOTWXUYZP8915-72-71 05:15:00 Test Item Value Reference Range Interpretation Comments MAGNESIUM (BEAKER) (test code = 2.1 mg/dL 1.6-2.6 627) Forming Roll Operator ID - PIAYA LPROTHROMBIN TIME/[id number] 04:50:00 Test Item Value Reference Range Interpretation [...] patients wiht mechanical heart valves.Vitamin B12 and [id number] 16:46:00 Test Item Value Reference Range Interpretation Comments Vitamin B12 (test code = 1107 pg/mL 213-816 H 2132-9) Folate (test code = 2284-8) 3.40 ng/mL >=7.00 L VALENTE (test code = VALENTE) Forming Roll Operator ID - NTP Lab Interpretation (test Abnormal code = 97319-3) [facility] CenterVITAMIN B12 AND [id number] 16:46:00 Test Item Value Reference Range Interpretation Comments VITAMIN B12 (BEAKER) (test code = 1107 pg/mL 213-816 H 774) FOLATE (BEAKER) (test code = 362) 3.40 ng/mL >=7.00 L Forming Roll Operator ID - NTPLactate dehydrogenase (LDH)2020-01-16 12:57:00 Test Item Value Reference Range Interpretation Comments LDH (test code = 2532-0) 250 U/L 125-220 H VALENTE (test code = VALENTE) Forming Roll Operator ID - TUAN C Lab Interpretation (test Abnormal code = 31855-3) [facility] CenterLACTATE DEHYDROGENASE (LDH)2020-01-16 12:57:00 Test Item Value Reference Range Interpretation Comments LACTATE DEHYDROGENASE (BEAKER) (test 250 U/L 125-220 H code = 635) Forming Roll Operator ID - TUAN CRETICULOCYTE [id number] 12:44:00 Test Item Value Reference Range Interpretation Comments RETICULOCYTE COUNT PCT (BEAKER) (test 5.0 % 0.5-1.7 H code = 575) Forming Roll Operator ID - 6000HIV-1 Antigen with HIV-1/2 Dpacqurg0251-85-06 12:17:00 Test Item Value Reference Range Interpretation Comments HIV-1 Antigen with HIV Nonreactive Nonreactive 1&2 Antibody (test code = 80708-0) VALENTE (test code = VALENTE) Forming Roll Operator ID - TUAN C Lab Interpretation (test Normal code = 75980-0) [facility] CenterHIV-1 ANTIGEN WITH HIV-1/2 [id number] 12:17:00 Test Item Value Reference Range Interpretation Comments HIV-1 ANTIGEN WITH HIV 1\\T\\2 Nonreactive Nonreactive ANTIBODY (2) (BEAKER) (test code = 2586) Forming Roll Operator ID - TUAN BIbwaspwdfqn3561-10-99 12:02:00 Test Item Value Reference Range Interpretation Comments Haptoglobin (test code = <8 14-258 L 4542-7) VALENTE (test code = VALENTE) Forming Roll Operator ID - TUAN C Lab Interpretation (test Abnormal code = 08001-9) [facility] CenterHAPTOGLOBIN2020-06-21 12:02:00 Test Item Value Reference Range Interpretation Comments HAPTOGLOBIN (BEAKER) (test code = < mg/dL 14-258 L 366) Forming Roll Operator ID - TUAN CHemoglobin [id number] 09:01:00 Test Item Value Reference Range Interpretation Comments Hemoglobin A1C (test code = 4548-4) <3.8 4.3-6.1 L Lab Interpretation (test code = Abnormal 18224-1) [facility] CenterHEMOGLOBIN [id number] 09:01:00 Test Item Value Reference Range Interpretation Comments HEMOGLOBIN A1C (BEAKER) (test code = < % 4.3-6.1 L 368) U/S, ABDOMINAL, WITH [id number] 07:32:00Referring: Dr. Rowdy Mccarthy Reason for exam:->liver [...] MDReport Verified Date/Time: 01/16/2020 07:32:01 Reading Location: [address] Transitional Reading Room US abdominal with ndkwvzb8919-17-49 07:32:00Interface, External Ris In - 01/16/2020 7:34 [...] MDReport Verified Date/Time: 01/16/2020 07:32:01 Reading Location: [address] Transitional Reading [facility] METABOLIC [id number] 04:41:00 Test Item Value Reference Range Interpretation [...] S NOT APPLICABLE FOR DIALYSIS PATIEN TS. Forming Roll Operator ID - PIDORIAN LSpecimen moderately [id number] 04:38:00 Test Item Value Reference Range Interpretation Comments MAGNESIUM (BEAKER) (test code = 2.3 mg/dL 1.6-2.6 627) Forming Roll Operator ID - MITCH LHEPATIC FUNCTION [id number] 04:38:00 Test Item Value Reference Range Interpretation [...] (test code = 9 U/L 6-55 347) Forming Roll Operator ID - MITCH Jane moderately ictericPROTHROMBIN TIME/[id number] 04:36:00 Test Item Value Reference Range Interpretation [...] mechanical heart valves.CBC W/PLT COUNT & AUTO [id number] 04:29:00 Test Item Value Reference Range Interpretation [...] (BEAKER) (test code = 2801) Carotid doppler fgqksduen3163-48-26 00:34:03Ejection [facility] ECHO HEARTLAB MKCKESSON CPACSRight Impression1. The [...] AM CDTPV LAB - [facility] Patient Name CICI CALDERON Date of Study 01/15/2020 ALYSE Age 64 Visit Number [id number] Gender Female Accession Number [id number] Date of 1955 Referring [facility] Room Number 1515 Physician Egg Grader Herbert Lechuga Interpreting Chelsea Resendez T Physician [...] + + + - Additional Measurements:ICAPSV/CCAPSV 0.96.ICAEDV/CCAEDV 1.52.[facility] CenterBlood typing, automated - - at seperate draw time from initial type and cduvaz5275-42-42 20:34:00 Test Item Value Reference Range Interpretation Comments ABO/RH AUTOMATED ([facility]) (test A POSITIVE code = 2260) [facility] CenterT42020-06-20 18:08:00 Test Item Value Reference Range Interpretation Comments T4, Total (test code = 4.3 ug/dL 4.9-11.7 L 3026-2) VALENTE (test code = VALENTE) Forming Roll Operator ID - NTP Lab Interpretation (test Abnormal code = 40290-8) [facility] CenterT42020-06-20 18:08:00 Test Item Value Reference Range Interpretation Comments T4 TOTAL (BEAKER) (test code = 895) 4.3 ug/dL 4.9-11.7 L Forming Roll Operator ID - DORCfsbexwx0100-97-99 18:07:00 Test Item Value Reference Range Interpretation Comments Ferritin (test code = 489.86 ng/mL 5-275 H 2276-4) VALENTE (test code = VALENTE) Forming Roll Operator ID - NTP Lab Interpretation (test Abnormal code = 92362-4) [facility] CenterFERRITIN2020-06-20 18:07:00 Test Item Value Reference Range Interpretation Comments FERRITIN (KIRK) (test code = 489.86 ng/mL 5.00-275.00 H 361) Forming Roll Operator ID - NTPCT, CHEST, WITHOUT [id number] 17:57:00Referring: Dr. Rowdy LopestFINAL REPORT CT of [...] [place] Verified Date/Time: 01/15/2020 17:57:54 Reading Location: [address] Ortho Consult Reading Room CT chest without IV [id number] 17:57:00Interface, External Ris In - 01/15/2020 6:00 [...] [place] Verified Date/Time: 01/15/2020 17:57:54 Reading Location: [address] Ortho Consult Reading Room [facility] 2020-01-15 17:27:00 Test Item Value Reference Range Interpretation Comments TSH (test code = 11393-1) 5.549 0.350- 4.940 uIU/mL H VALENTE (test code = VALENTE) Forming Roll Operator ID - DB Lab Interpretation (test Abnormal code = 61223-8) [facility] CenterVitamin D, 17-Alipyzx0557-83-20 17:27:00 Test Item Value Reference Range Interpretation Comments Vitamin D 25-Hydroxy 6.2 ng/mL 6.6-49.9 L (test code = 2764) VALENTE (test code = VALENTE) Effective 05/07/2017: Reference Range ChangeNew: 6.6-49.9 ng/mL Previous: 13.0-47.8 ng/mL Recommended Vitamin D Target Range: 30.0-40.0 ng/mLOperator ID - DB Lab Interpretation (test Abnormal code = 31183-9) [facility] CenterVITAMIN D, 40-[id number] 17:27:00 Test Item Value Reference Range Interpretation Comments VITAMIN D 25-OH (BEAKER) (test code 6.2 ng/mL 6.6-49.9 L = 2764) Effective 05/07/2017: Reference Range ChangeNew: 6.6-49.9 ng/mL Previous: 13.0-47.8 ng/mLRecommended Vitamin D Target Range: 30.0-40.0 ng/mLOperator ID - [id number] 17:27:00 Test Item Value Reference Range Interpretation Comments THYROID STIMULATING HORMONE 5.549 uIU/mL 0.350-4.940 H (BEAKER) (test code = 772) Forming Roll Operator ID - DBALPHA FETOPROTEIN (AFP), TUMOR [id number] 17:27:00 Test Item Value Reference Range Interpretation Comments ALPHA-FETOPROTEIN (BEAKER) (test code < ng/mL <10.0 = 1094) Forming Roll Operator ID - DBHepatitis B surface ginygjr3771-03-42 17:25:00 Test Item Value Reference Range Interpretation Comments HBsAg Screen (test code Nonreactive Nonreactive = 5195-3) VALENTE (test code = VALENTE) Specimen is considered negative for HBsAg. Lab Interpretation (test Normal code = 56654-1) [facility] CenterHecommon[facility] hospitaltis B surface [id number] 17:25:00 Test Item Value Reference Range Interpretation Comments Hep B S Ab (test code = 25.0 <8.0 mIU/mL H 11944-0) VALENTE (test code = VALENTE) Forming Roll Operator ID - DB Lab Interpretation (test Abnormal code = 32771-5) [facility] CenterHecommonwealth regional specialty hospitaltis C mltbujrg0429-92-50 17:25:00 Test Item Value Reference Range Interpretation Comments Hepatitis C Ab (test code = Nonreactive Nonreactive 94884-4) VALENTE (test code = VALENTE) Forming Roll Operator ID - DB Lab Interpretation (test Normal code = 97130-3) [facility] CenterHEFLEMING COUNTY HOSPITALTIS B SURFACE [id number] 17:25:00 Test Item Value Reference Range Interpretation Comments HEPATITIS B SURFACE ANTIGEN (2) Nonreactive Nonreactive (BEAKER) (test code = 2585) Specimen is considered negative for HBsAg.HEPATITIS B SURFACE [id number] 17:25:00 Test Item Value Reference Range Interpretation Comments HEPATITIS B SURFACE ANTIBODY 25.0 mIU/mL <8.0 H (BEAKER) (test code = 647) Forming Roll Operator ID - DBHEPATITIS C [id number] 17:25:00 Test Item Value Reference Range Interpretation Comments HEPATITIS C ANTIBODY (BEAKER) Nonreactive Nonreactive (test code = 367) Forming Roll Operator ID - DBCarcinoembryonic Antigen (CEA)2020-01-15 17:23:00 Test Item Value Reference Range Interpretation Comments CEA, SERUM (test code = 7.9 ng/mL 0-5 H 9-6) VALENTE (test code = VALENTE) Forming Roll Operator ID - DB Lab Interpretation (test Abnormal code = 27405-7) [facility] CenterHepatitis B core antibody, [id number] 17:23:00 Test Item Value Reference Range Interpretation Comments Hep B C IgM (test code = Nonreactive Nonreactive 61815-4) VALENTE (test code = VALENTE) Forming Roll Operator ID - DB Lab Interpretation (test Normal code = 40230-6) [facility] CenterHepatitis A antibody, [id number] 17:23:00 Test Item Value Reference Range Interpretation Comments Hep A IgM (test code = Nonreactive Nonreactive 54185-6) VALENTE (test code = VALENTE) Forming Roll Operator ID - DB Lab Interpretation (test Normal code = 25130-5) [facility] CenterCARCINOEMBRYONIC ANTIGEN (CEA)2020-01-15 17:23:00 Test Item Value Reference Range Interpretation Comments CARCINOEMBRYONIC ANTIGEN (BEAKER) 7.9 ng/mL 0.0-5.0 H (test code = 685) Forming Roll Operator ID - DBHEPATITIS B CORE ANTIBODY, [id number] 17:23:00 Test Item Value Reference Range Interpretation Comments HEPATITIS B CORE IGM ANTIBODY Nonreactive Nonreactive (BEAKER) (test code = 645) Forming Roll Operator ID - DBHEPATITIS A ANTIBODY, [id number] 17:23:00 Test Item Value Reference Range Interpretation Comments HEPATITIS A IGM ANTIBODY (BEAKER) Nonreactive Nonreactive (test code = 498) Forming Roll Operator ID - DBRAD, MANDIBLE, MIN 4 [id number] 17:22:00Referring: Dr. Rowdy Zhang for exam:->liver transplant [...] Alvarado Verified Date/Time: 01/15/2020 17:22:12 Reading Location: [facility] C0[facility] Transitional Reading Room XR mandible min 4 [id number] 17:22:00Interface, External Ris In - 01/15/2020 5:24 [...] Alvarado Verified Date/Time: 01/15/2020 17:22:12 Reading Location: [facility] C013 [facility] [id number] 17:16:00Referring: Dr. Rowdy Zhang for exam:->liver transplant [...] suggestive of chronic interstitial lung disease. Signed: Wells,Albaro MDReport Verified Date/Time: 01/15/2020 17:16:49 Reading Location: [facility] C013T Transitional Reading Room XR chest 2 [id number] 17:16:00Interface, External Ris In - 01/15/2020 5:19 [...] MDReport Verified Date/Time: 01/15/2020 17:16:49 Reading Location: [facility] C013T Transitional Reading Room [facility] 2D Echo W/Doppler(CW/PW/Color)2020-01-15 17:15:41Ejection FractionSST. [facility] MKCKESSON CPACSInterface, External Ris In - 01/15/2020 5:15 PM C DTTransthoracic Echocardiography Report (TTE) Demographics Patient Name CICI CALDERON Date of Study 01/15/2020 ALYSE Gender Female Visit Number [id number] Race Unknown Room Number 1515 Number Date of 1955 Referring Physician Ren Hernandez MD Age 64 year(s) Egg Grader Lisa Bautista [facility] Interpreting Jai Arreguin MD Physician Procedure [...] LVOT CO: 7.05 l/min LVOT CI: 3.67 l/min/m^2CSan Francisco Chinese HospitalCOMPREHENSIVE METABOLIC [id number] 17:06:00 Test Item Value Reference Range Interpretation [...] S NOT APPLICABLE FOR DIALYSIS PATIEN TS. Forming Roll Operator ID - NTPSpecimen moderately [id number] 17:03:00 Test Item Value Reference Range Interpretation Comments Fibrinogen (test code = 3255-7) 114 mg/dl 225-434 L Lab Interpretation (test code = Abnormal 99968-2) [facility] 17:03:00 Test Item Value Reference Range Interpretation Comments FIBRINOGEN LEVEL (BEAKER) (test 114 mg/dl 225-434 L code = 658) [id number] 17:00:00 Test Item Value Reference Range Interpretation Comments Transferrin (test code = 102 mg/dL 174-382 L 3034-6) VALENTE (test code = VALENTE) Forming Roll Operator ID - DBSpecimen moderately icteric Lab Interpretation (test Abnormal code = 77030-9) [facility] CenterIron, TIBC, % sat. (without ferritin)2020-01-15 17:00:00 Test Item Value Reference Range Interpretation Comments Iron (test code = 2498-4) 144.0 ug/dL 40-160 TIBC (test code = 2500-7) 129 ug/dL 250-450 L Iron % Saturation (test code 112 % 20-55 H = 2502-3) VALENTE (test code = VALENTE) Forming Roll Operator ID - DB Lab Interpretation (test Abnormal code = 42335-5) [facility] CenterTRANSFERRIN2020-06-20 17:00:00 Test Item Value Reference Range Interpretation Comments TRANSFERRIN (BEAKER) (test code = 102 mg/dL 174-382 L 541) Forming Roll Operator ID - DBSpecimen moderately ictericIRON, TIBC, % SAT. (WITHOUT FERRITIN) 2020-01-15 17:00:00 Test Item Value Reference Range Interpretation Comments IRON (BEAKER) (test code = 547) 144.0 ug/dL 40.0-160.0 TOTAL IRON BINDING CAPACITY 129 ug/dL 250-450 L (BEAKER) (test code = 769) IRON % SATURATION (2) (BEAKER) 112 % 20-55 H (test code = 2590) Forming Roll Operator ID - ZQIfqyc-0-paansnjlehe4886-06-20 16:59:00 Test Item Value Reference Range Interpretation Comments A-1 Antitrypsin (test code = 121.20 mg/dL 90-200 1825-9) VALENTE (test code = VALENTE) Forming Roll Operator ID - DB Lab Interpretation (test Normal code = 88371-9) [facility] CenterBILIRUBIN, [id number] 16:59:00 Test Item Value Reference Range Interpretation Comments BILIRUBIN DIRECT 1.6 mg/dL 0.1-0.5 H Specimen sl ightly (BEAKER) (test code = hemoly zed 706) Forming Roll Operator ID - IQSZSJQY-6-GIOYQFPYZZO2005-06-20 16:59:00 Test Item Value Reference Range Interpretation Comments ALPHA-1 ANTITRYPSIN (BEAKER) 121.20 mg/dL 90.00-200.00 (test code = 502) Forming Roll Operator ID - [id number] 16:58:00 Test Item Value Reference Range Interpretation Comments Ethanol Lvl (test code = <10 <=10 mg/dL 5643-2) VALENTE (test code = VALENTE) Forming Roll Operator ID - DB Lab Interpretation (test Normal code = 39543-1) [facility] CenteraPTT2020-06-20 16:58:00 Test Item Value Reference Range Interpretation Comments PTT (test code = 81546-6) 36.8 22.5- 36.0 seconds H Lab Interpretation (test code = Abnormal 15355-5) [facility] CenterAPTT2020-06-20 16:58:00 Test Item Value Reference Range Interpretation Comments PARTIAL THROMBOPLASTIN TIME 36.8 seconds 22.5-36.0 H (BEAKER) (test code = 760) [id number] 16:58:00 Test Item Value Reference Range Interpretation Comments ETHANOL (BEAKER) (test code = 400) < mg/dL <=10 Forming Roll Operator ID - DBPROTHROMBIN TIME/[id number] 16:57:00 Test Item Value Reference Range Interpretation [...] is2.5-3.5 for patients wiht mechanical heart valves.CALCIUM, [id number] 16:45:00 Test Item Value Reference Range Interpretation Comments CALCIUM IONIZED (BEAKER) (test 1.08 mmol/L 1.12-1.27 L code = 698) PH, BLOOD (BEAKER) (test code = 7.38 1810) CREATININE, RANDOM [id number] 13:46:00 Test Item Value Reference Range Interpretation Comments CREATININE URINE (BEAKER) (test 280.7 mg/dL code = 375) Reference Range: No NormalsOperator ID - NTPSODIUM, RANDOM [id number] 13:46:00 Test Item Value Reference Range Interpretation Comments SODIUM URINE (BEAKER) (test code = < meq/L 243) Reference Range: No NormalsOperator ID - NTPHepatitis panel, [id number] 13:05:00 Test Item Value Reference Range Interpretation Comments Hep A IgM (test code = Nonreactive Nonreactive 89429-2) Hep B C IgM (test code = Nonreactive Nonreactive 95480-2) Hepatitis C Ab (test code = Nonreactive Nonreactive 37919-7) HBsAg Screen (test code = Nonreactive Nonreactive 5195-3) VALENTE (test code = VALENTE) Forming Roll Operator ID - NTP Lab Interpretation (test Normal code = 86504-9) [facility] CenterHEPATITIS PANEL, [id number] 13:05:00 Test Item Value Reference Range Interpretation Comments HEPATITIS A IGM ANTIBODY (BEAKER) Nonreactive Nonreactive (test code = 498) HEPATITIS B CORE IGM ANTIBODY Nonreactive Nonreactive (BEAKER) (test code = 645) HEPATITIS C ANTIBODY (BEAKER) Nonreactive Nonreactive (test code = 367) HEPATITIS B SURFACE ANTIGEN (2) Nonreactive Nonreactive (BEAKER) (test code = 2585) Forming Roll Operator ID - NTPLipid [id number] 11:51:00 Test Item Value Reference Range Interpretation Comments Triglycerides (test 86 mg/dL code = 2571-8) Cholesterol (test code 101 mg/dL = 2093-3) HDL (test code = 12 mg/dL 2085-9) LDL Calculated (test 72 mg/dL code = 19380-8) VALENTE (test code = VALENTE) Triglyceride Reference Range: Low Risk <150 Borderline 150-199 High Risk 200-499 Very High Risk >=500 Cholesterol Reference Range: Low Risk <200 Borderline 200-239 High Risk >240 HDL Cholesterol Reference Range: Low Risk >=60 High Risk <40 LDL Cholesterol Reference Range: Optimal <100 Near Optimal 100-129 Borderline 130-159 High 160-189 Very High >=190 Forming Roll Operator ID - NTPSpecimen moderately icteric [facility] CenterGamma Glutamyl Transferase (GGT)2020-01-15 11:51:00 Test Item Value Reference Range Interpretation Comments GGT (test code = 2324-2) 15 U/L 9-64 VALENTE (test code = VALENTE) Forming Roll Operator ID - NTPSpecimen moderately icteric Lab Interpretation (test Normal code = 93419-5) [facility] CenterUric [id number] 11:51:00 Test Item Value Reference Range Interpretation Comments Uric Acid (test code = 15.7 mg/dL 2.6-7.2 H 3084-1) VALENTE (test code = VALENTE) Forming Roll Operator ID - NTPSpecimen moderately icteric Lab Interpretation (test Abnormal code = 94171-7) [facility] CenterURIC [id number] 11:51:00 Test Item Value Reference Range Interpretation Comments URIC ACID (BEAKER) (test code = 15.7 mg/dL 2.6-7.2 H 773) Forming Roll Operator ID - NTPSpecimen moderately ictericLIPID [id number] 11:51:00 Test Item Value Reference Range Interpretation [...] Borderline 130-159 High 160-189 Very High >=190 Forming Roll Operator ID - NTPSpecimen moderately [id number] 11:51:00 Test Item Value Reference Range Interpretation Comments PHOSPHORUS (BEAKER) (test code = 4.5 mg/dL 2.3-4.7 604) Forming Roll Operator ID - NTPGAMMA GLUTAMYL TRANSFERASE (GGT)2020-01-15 11:51:00 Test Item Value Reference Range Interpretation Comments GAMMA GLUTAMYL TRANSFERASE (BEAKER) 15 U/L 9-64 (test code = 364) Forming Roll Operator ID - NTPSpecimen moderately ictericCBC W/PLT COUNT & AUTO [id number] 11:25:00 Test Item Value Reference Range Interpretation [...] CONCENTRATION Decreased (CELLAVISION)(BEAKER) (test code = 3438) Forming Roll Operator ID - 6000Operator ID - Ana Laura James comments: Slide comments: [id number] 10:20:00 Test Item Value Reference Range Interpretation Comments MAGNESIUM (BEAKER) (test code = 2.2 mg/dL 1.6-2.6 627) Forming Roll Operator ID - [id number] 08:57:00 Test Item Value Reference Range Interpretation Comments Ammonia (test code = 19 18- 72 mol/L 54557-8) VALENTE (test code = VALENTE) Forming Roll Operator ID - NTP Lab Interpretation (test Normal code = 30254-3) [facility] 08:57:00 Test Item Value Reference Range Interpretation Comments AMMONIA (BEAKER) (test code = 348) 19 mol/L 18-72 Forming Roll Operator ID - NTPHEPATIC FUNCTION [id number] 05:21:00 Test Item Value Reference Range Interpretation [...] (test code = 12 U/L 6-55 347) Forming Roll Operator ID - DALTON MSpecimen moderately ictericBASIC METABOLIC [id number] 05:15:00 Test Item Value Reference Range Interpretation [...] S NOT APPLICABLE FOR DIALYSIS PATIEN TS. Forming Roll Operator ID - DALTON MSpecimen moderately ictericPROTHROMBIN TIME/[id number] 04:37:00 Test Item Value Reference Range Interpretation [...] Detected Not Detected, (test code = Negative 67001-9) SARS-COV-2 [facility] PERFORMING LAB (test code = 86545-4) VALENTE (test code = Negative results do [...] of the Act. Fact Sheet for Healthcare Providers:https://www.MightyText/Documents/Xper t%20Xpress%20SARS%20CoV- 2/Fact%20Sheets/3023802 %35OSHS-OHD-3%20HEALTHCA RE%20PROVIDERS%20FACT%20 SHEET.pdf Fact Sheet for Healthcare Patients:https://www.Duxter/Documents/Xpert %20Xpress%20SARS%20CoV-2 /Fact%20Sheets/3023801% 60JHJH-SNA-2%20PATIENT%2 0FACT%20SHEET.pdf Performing Laboratory:[facility] [place] [address] [facility] ([facility])2020-01-15 01:48:00 Test Item Value Reference Range Interpretation Comments SARS-COV2/RT-PCR (test Not Detected Not Detected, Negative code = 7264288) SARS-COV-2 PERFORMING LAB [facility] (test code = 2191137) Negative results do not preclude SARS-CoV-2 infection [...] of the Act.Fact Sheet for Healthcare Pro viders:https://www.Telepartner/Documents/Xpert%20Xpress%20SARS%20CoV-2/Fact%20Sh eets/302-3802%68XHML-JDC-5%20HEALTHCARE%20PROVIDERS%20FACT%20SHEET.pdfFact Sheet for Healthcare Patients:https://www.Hiberna/Documents/Xpert%20Xpress%20SARS%20CoV-2/Fact%20Sheets/302-3801%20SARS-COV -2%20PATIENT%20FACT%20SHEET.pdfPerforming Laboratory:[facility] [facility], [place] [address]WOFDW METABOLIC [id number] 22:40:00 Test Item Value Reference Range Interpretation [...] S NOT APPLICABLE FOR DIALYSIS PATIEN TS. Forming Roll Operator ID - DBSpecimen moderately ictericHEPATIC FUNCTION [id number] 22:39:00 Test Item Value Reference Range Interpretation [...] Specimen slightly (test code = 347) hemolyzed Forming Roll Operator ID - DBSpecimen moderately ictericPROTHROMBIN TIME/[id number] 22:28:00 Test Item Value Reference Range Interpretation [...] mechanical heart valves.CBC W/PLT COUNT & AUTO [id number] 22:22:00 Test Item Value Reference Range Interpretation [...] code = 2801) ALPHA FETOPROTEIN (AFP), TUMOR [id number] 18:31:00 Test Item Value Reference Range Interpretation Comments ALPHA-FETOPROTEIN (BEAKER) (test code < ng/mL <10.0 = 1094) Forming Roll Operator ID - DBBASIC METABOLIC [id number] 15:23:00 Test Item Value Reference Range Interpretation [...] S NOT APPLICABLE FOR DIALYSIS PATIEN TS. Forming Roll Operator ID - BSPlease sent STATSpecimen moderately ictericHEPATIC FUNCTION [id number] 15:18:00 Test Item Value Reference Range Interpretation [...] (test code = 17 U/L 6-55 347) Forming Roll Operator ID - BSPlease sent STATSpecimen moderately [...] for patients wiht mechanical heart valves.Please sent [facility] W/PLT COUNT & AUTO [id number] 15:05:00 Test Item Value Reference Range Interpretation [...] (BEAKER) (test code = 2801) CT, ABDOMEN, [id number] 15:58:00Referring: Dr. Reno SweattFINAL REPORT CT OF [...] Verified Date/Time: 05/02/2017 15:58:35 Reading Location: [facility] B1 C013Y CT Body Reading Room CBC W/PLT COUNT & AUTO [id number] 17:30:00 Test Item Value Reference Range Interpretation [...] code = 417) 0.00ALPHA FETOPROTEIN (AFP), TUMOR [id number] 16:31:00 Test Item Value Reference Range Interpretation Comments ALPHA-FETOPROTEIN (BEAKER) (test 3.3 ng/mL <10.0 code = 1094) Effective 06/14/2014: Reference Range ChangeNew: <10.0 Previous: 0.0-8.0 BASIC METABOLIC [id number] 16:13:00 Test Item Value Reference Range Interpretation [...] FOR DIALYSIS PATIEN TS. Specimen slightly ictericLIPID [id number] 16:13:00 Test Item Value Reference Range Interpretation [...] Very High >=190 Specimen slightly ictericHEPATIC FUNCTION [id number] 16:13:00 Test Item Value Reference Range Interpretation [...] (test code = 364) Specimen slightly ictericPROTHROMBIN TIME/[id number] 16:13:00 Test Item Value Reference Range Interpretation [...]
[2020-07-18 08:43] VITALS: O2SAT 100; BMI 30.9
[2020-07-18] MEDS ORDERED: ALBUMIN HUMAN 25% 200 ML IV ONE (11:25)
[2020-07-18] MEDS ORDERED: ALBUMIN HUMAN 25% 100 ML IV ONE (11:34)
--- NOTE | 2020-07-18 11:36 | RAD REPORT ---
EXAM DESCRIPTION: US - Paracentesis Proc Guidance - 07/18/2020 10:18 am CLINICAL HISTORY: Liver disease with ascites FINDINGS: The risks, benefits and alternatives to the procedure were explained to the patient and in formed consent obtained. The skin and subcutaneous tissues were anesthetized with Lidocaine. Under sonographic guidance an 8 F rench catheter was placed into the right lower quadrant. 8 liters of yellow fluid removed and sent to the lab The patient experienced no immediate complication. IMPRESSION: Paracentesis
[2020-07-18 12:29] LABS: Body Fluid Source PERITONEAL
[2020-07-18 12:30] LABS: Appearance CLEAR (CLEAR); Body Fluid WBC 58 /mm^3; Color of fluid Yellow (COLORLESS)
[2020-07-18 15:44] VITALS: BP 98/42; TEMP 97.5
== END 2020-07-18 12:25 | disposition home or self-care (01) ==
LOC: DS 08:03
PROVIDERS: ATTEND Internal Medicine Gastroenterology
DX: R18.8 Other ascites (principal); K70.0 Alcoholic fatty liver; K74.69 Other cirrhosis of liver
CPT/HCPCS: 87070; 36415; 89050; 96365; 49083; P9047 ×2

== ENCOUNTER → 2020-07-31 | Day surgery (SDC) | payer OTHER ==
[~2020-07-31] MED LIST changes: -ALBUMIN HUMAN 25% 200 ML IV ONE; +ALBUMIN HUMAN 25% 300 ML IV ONE
--- OUTSIDE RECORDS SUMMARY | 2020-07-31 07:27 | XMS REPORT | Clinical Summary ---
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
--- OUTSIDE RECORDS SUMMARY | 2020-07-31 07:30 | XMS REPORT | Clinical Summary ---
:1955 Author Organization [facility] Address [address] [place] [address] Care Team Providers Name Role Phone Zeinab [...] Encounters Date Type Specialty Care Team Description 07/27/2020 Telephone Transplant Hepatology Radha Velazquez, Labs Only RN 07/25/2020 Orders Only Transplant Hepatology Cary Talley Pre- transplant evaluation for liver transplant; R, RN 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, unspecified hepatic cirrhosis type (HCC) 07/20/2020 Documentation Transplant Hepatology Cadence Shine 07/18/2020 Telephone Transplant Hepatology Cary Talley ow-up R, RN 07/18/2020 Documentation Transplant Hepatology Cary Talley, RN 07/17/2020 Telephone Transplant Hepatology Cary Talley ow-up R, RN 07/17/2020 Orders Only Transplant Hepatology Cary Talley Pre- transplant evaluation for liver transplant; R, RN 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, unspecified hepatic cirrhosis type (HCC) 07/14/2020 Orders Only Transplant Hepatology Cary Talley Cirr hosis of liver without ascites, unspecified hepatic cirrhosis type (HCC); R, RN Vitamin D defic iency 07/14/2020 Telephone Transplant Hepatology Cary Talley Foll ow-up RFRANCISCA 07/13/2020 Refill Transplant Hepatology Kristofer Cross sis of liver MD Nhi without ascites , unspecified hep atic cirrhosis type (HCC) 07/12/2020 Abstract Transplant Hepatology Cary Talley RN 07/12/2020 Documentation Transplant Hepatology Cary Talley RN 07/07/2020 Telephone Transplant Hepatology Rosio Hernandez (BLADIMIR. Tata Ledesma Calling to info pt mri appt on has been cancel led due to no ins a uth and will need t o be rescheduled for next available date. Also need to se e if pt still wants to come in for cli radha on 07/11 or she wants to rxd th at appt also.) 07/07/2020 Telephone Transplant Hepatology Rosio Hernandez (LVM. Tata Ledesma Calling to conf ir 07/11 appts w/p t. ) 07/06/2020 Telephone Transplant Hepatology Cary Talley RFRANCISCA 06/23/2020 Documentation Transplant Hepatology Cadence Shine 06/14/2020 Documentation Transplant Hepatology Cary Talley RN 06/13/2020 Orders Only Transplant Hepatology Cary Talley Pre- transplant evaluation for liver transplant; R RN 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, unspecified hepatic cirrhosis type (HCC) 06/09/2020 Telephone Transplant Hepatology Cary Talley labs due R RN 06/01/2020 Telephone Transplant Hepatology Lizz Shine 05/29/2020 Orders Only Transplant Hepatology Cary Talley Pre- transplant evaluation for liver transplant; R, RN 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, unspecified hepatic cirrhosis type (HCC) 05/25/2020 Telephone Central Scheduling Chris Shine 05/25/2020 Telephone Transplant Hepatology Rosio Shine 05/23/2020 Telephone Transplant Hepatology Lizz Shine O nly Cadence 05/23/2020 Orders Only Transplant [...] Talley RN 05/09/2020 Documentation Transplant Hepatology David, Mariaelena 05/09/2020 Orders Only Transplant Hepatology David, Pre-tr ansplant evaluation for liver transplant; Tata Ledesma 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, unspecified hepatic cirrhosis type (HCC) 05/05/2020 Documentation Transplant Hepatology Hamilton, Micheyl 05/03/2020 Documentation Transplant Hepatology Cary Talley RN 05/02/2020 Documentation Transplant Hepatology Hamilton, Micheyl 04/20/2020 Documentation Transplant Hepatology Hamilton, Micheyl 04/18/2020 Documentation Transplant Hepatology David, Mariaelena 04/18/2020 [...] Micheyl 03/14/2020 Documentation Transplant Hepatology Cary Talley RN [...] Orders Only Hepatology Laron, Line Hepatic Kastrup, SOUNDSCRIBER MECHANIC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) 02/03/2020 Documentation [...] 02/01/2020 Telephone Hepatology PRIOR ITZEL Craven (HENRY Burks 02/01/2020 Orders Only Transplant Hepatology Cary Talley [...] LV) 01/18/2020 Outside Orders Radiology Mitzy English, SOUNDSCRIBER MECHANIC 01/17/2020 Anesthesia Event Gastroenterology Agatha Lr MD Vences, Wendy Diaz, PATHOLOGY SECRETARY 01/17/2020 Surgery Gastroenterology Sylvie George, UPPER MD [...] Line Obesity (BMI 35.0-39.9 without comorbidity); Kastrup, SOUNDSCRIBER MECHANIC Adrenal mass, l eft ; Screening for m alignant neoplasm; Elevated serum creatinine; Other ascites 12/31/2019 Telephone Hepatology Dai Healy MA 12/21/2019 Documentation Hepatology Larry, Line Kastrup, SOUNDSCRIBER MECHANIC 12/17/2019 Abstract Hepatology Ivanna Healy MA 12/16/2019 Abstract Hepatology Janna Aparicio RN 12/16/2019 Abstract Hepatology Janna Aparicio RN 12/16/2019 Abstract Hepatology Janna Aparicio RN 12/15/2019 Audio - Hepatology Laron, Line Portal hypert ension (Primary Dx); Telemedicine Kastrup, SOUNDSCRIBER MECHANIC 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); Obesity (BMI 35 .0-39.9 without comorbidity); Adrenal mass, l eft ; Screening for m alignant neoplasm 12/14/2019 Telephone Hepatology José Sahni Appointment AMRIT De La [place]ente after 07/31/2019 Family History Medical History Relation Name Comments [...] 08/08/2020 Appointment Radiology Kristofer Cross MD [address] [address] 0 [phone] 08/08/2020 Follow-Up Transplant Hepatology Whitney Cross MD [address] [address] 0 [phone] Health Maintenance Due Date Last Done Comments BREAST CANCER SCREENING 1955 HEPATITIS B VACCINE (1 of 3 - Risk 3-dose 07/08/19732019 series) PNEUMOCOCCAL 65+ YRS (2 of 2 - PPSV23) 2019 0, 02/23/2020 MEDICARE ANNUAL WELLNESS (YEAR 2 or FIRST 07/28/2019 YEAR if no IPPE) INFLUENZA VACCINE (#1) 2020 DEPRESSION SCREENING (12+) 07/28/2020 COLON CANCER SCREENING COLONOSCOPY 01/16/2030 01/17/2020 Procedures Procedure Name Priority Date/Time Associated Comments Diagnosis BILIRUBIN, DIRECT STAT 07/26/2020 4:15 Pre-transplant Resu lts for this PM LEAD BASED PAINT TECHNICIAN evaluation for procedure are in liver transplant the results Cirrhosis of liver section. without ascites, unspecified hepatic cirrhosis type (HCC) CBC W/PLT COUNT & STAT 07/26/2020 4:15 Pre-transplant Resu lts for this AUTO DIFFERENTIAL PM LEAD BASED PAINT TECHNICIAN evaluation for procedur e are in liver transplant the results Cirrhosis of liver section. without ascites, unspecified hepatic cirrhosis type (HCC) COMPREHENSIVE STAT 07/26/2020 4:15 Pre-transplant Results for this METABOLIC PANEL PM LEAD BASED PAINT TECHNICIAN evaluation for procedure are in liver transplant the results Cirrhosis of liver section. without ascites, unspecified hepatic cirrhosis type (HCC) PROTHROMBIN TIME/INR STAT 07/26/2020 4:15 Pre-transplant R esults for this PM LEAD BASED PAINT TECHNICIAN evaluation for procedure are in liver transplant the results Cirrhosis of liver section. without ascites, unspecified hepatic cirrhosis type (HCC) BILIRUBIN, DIRECT STAT 07/17/2020 11:33 Pre-transplant Resu lts for this AM LEAD BASED PAINT TECHNICIAN evaluation for procedure are in liver transplant the results Cirrhosis of liver section. without ascites, unspecified hepatic cirrhosis type (HCC) CBC W/PLT COUNT & STAT 07/17/2020 11:33 Pre-transplant Resu lts for this AUTO DIFFERENTIAL AM LEAD BASED PAINT TECHNICIAN evaluation for procedur e are in liver transplant the results Cirrhosis of liver section. without ascites, unspecified hepatic cirrhosis type (HCC) COMPREHENSIVE STAT 07/17/2020 11:33 Pre-transplant Results for this METABOLIC PANEL AM LEAD BASED PAINT TECHNICIAN evaluation for procedure are in liver transplant the results Cirrhosis of liver section. without ascites, unspecified hepatic cirrhosis type (HCC) PROTHROMBIN TIME/INR STAT 07/17/2020 11:33 Pre-transplant R esults for this AM LEAD BASED PAINT TECHNICIAN evaluation for procedure are in liver transplant the results Cirrhosis of liver section. without ascites, unspecified hepatic cirrhosis type (HCC) BILIRUBIN, DIRECT STAT 07/11/2020 11:39 Pre-transplant Resu lts for this AM LEAD BASED PAINT TECHNICIAN evaluation for procedure are in liver transplant the results Cirrhosis of liver section. without ascites, unspecified hepatic cirrhosis type (HCC) CBC W/PLT COUNT & STAT 07/11/2020 11:39 Pre-transplant Resu lts for this AUTO DIFFERENTIAL AM LEAD BASED PAINT TECHNICIAN evaluation for procedur e are in liver transplant the results Cirrhosis of liver section. without ascites, unspecified hepatic cirrhosis type (HCC) COMPREHENSIVE STAT 07/11/2020 11:39 Pre-transplant Results for this METABOLIC PANEL AM LEAD BASED PAINT TECHNICIAN evaluation for procedure are in liver transplant the results Cirrhosis of liver section. without ascites, unspecified hepatic cirrhosis type (HCC) PROTHROMBIN TIME/INR STAT 07/11/2020 11:39 Pre-transplant R esults for this AM LEAD BASED PAINT TECHNICIAN evaluation for procedure are in liver transplant the results Cirrhosis of liver section. without ascites, unspecified hepatic cirrhosis type (HCC) BILIRUBIN, DIRECT STAT 06/13/2020 12:36 Pre-transplant Resu lts for this PM LEAD BASED PAINT TECHNICIAN evaluation for procedure are in liver transplant the results Cirrhosis of liver section. without ascites, unspecified hepatic cirrhosis type (HCC) CBC W/PLT COUNT & STAT 06/13/2020 12:36 Pre-transplant Resu lts for this AUTO DIFFERENTIAL PM LEAD BASED PAINT TECHNICIAN evaluation for procedur e are in liver transplant the results Cirrhosis of liver section. without ascites, unspecified hepatic cirrhosis type (HCC) COMPREHENSIVE STAT 06/13/2020 12:36 Pre-transplant Results for this METABOLIC PANEL PM LEAD BASED PAINT TECHNICIAN evaluation for procedure are in liver transplant the results Cirrhosis of liver section. without ascites, unspecified hepatic cirrhosis type (HCC) PROTHROMBIN TIME/INR STAT 06/13/2020 12:36 Pre-transplant R esults for this PM LEAD BASED PAINT TECHNICIAN evaluation for procedure are in liver transplant [...] procedure are i n the results section. [id number] AP Routine 01/19/2020 9:43 PHENOTYP PM CDT [...] 452 ms QTC Calculation(Bazett) 458 ms P [place] 59 degrees R [place] 32 degrees T [place] 56 degrees Normal sinus rhythm Normal ECG [...] procedure are i n the results section. [id number]\\, Routine 01/15/2020 4:17 Re sults for this [...] are i n the results section. SARS-COV2/RT-PCR ([facility] STAT 01/14/2020 7:28 R esults for this [...] results hepatic cirrhosis section. type (HCC) after 07/31/2019 Results Prothrombin time/INR (07/26/2020 4:15 PM LEAD BASED PAINT TECHNICIAN)Only the most recent of28 results within the time period is included. Pathologist Sig nature INR 1.2 (H) [facility] Comment: Reference Range 0.9-1.1 Moderate-intensity Warfarin Therapy 2.0-3.0 Higher-intensity Warfarin Therapy 3.0-4.0 PT 11.9 (H) 9.0 - 11.5 sec [facility] Comment: For additional information, please refer to http://education.OptoNova/faq/ANU501 (This link is being provided for informational/ educational purposes only.) Specimen Blood Narrative Performed At FASTING:NO [facility] FASTING: NO Resulting Agency Comment Performing Organization Information: Site ID: [id number]: [facility] Address: [address] [place] [address], [place] [address] Director: Jj Carrasco Performing Organization Address City/State/Zipcode Phone Number [facility] [address] [place] [address] [facility] CBC with platelet count + automated diff (07/26/2020 4:15 PM LEAD BASED PAINT TECHNICIAN)Only the most recent of12 resultswithin the time period is included. Pathologist Sig nature WBC 4.7 3.8 - 10.8 [facility] Thousand/uL RBC 2.46 (L) 3.80 - 5.10 [facility] Million/uL Hemoglobin 8.7 (L) 11.7 - 15.5 g/dL [facility] Hematocrit 25.1 (L) 35.0 - 45.0 % [facility] MCV 102.0 (H) 80.0 - 100.0 fL [facility] MCH 35.4 (H) 27.0 - 33.0 pg [facility] MCHC 34.7 32.0 - 36.0 g/dL [facility] RDW 13.6 11.0 - 15.0 % [facility] Platelets 63 (L) 140 - 400 [facility] Comment: Thousand/uL Review of the peripheral smear reveals decreased numbers of platelets. MPV 11.2 7.5 - 12.5 fL [facility] # Neutros 2,703 1,500 - 7,800 [facility] cells/uL # Lymphs 954 850 - 3,900 [facility] cells/uL # Monos 456 200 - 950 [facility] cells/uL # Eos 559 (H) 15 - 500 cells/uL [facility] # Baso 28 0 - 200 cells/uL [facility] % Neutros 57.5 % [facility] % Lymphs 20.3 % [facility] % Monos 9.7 % [facility] % Eos 11.9 % [facility] % Baso 0.6 % [facility] Specimen Blood Narrative Performed At FASTING:NO [facility] FASTING: NO Resulting Agency Comment Performing Organization Information: Site ID: [facility] Name: [facility] Address: [address] [place] [phone] Director: Jj Carrasco Performing Organization Address [facility] Phone Number [place] [phone] [place] [address] [facility] Bilirubin, direct (07/26/2020 4:15 PM LEAD BASED PAINT TECHNICIAN)Only the most recent of15 results within the time period is included. Pathologist Sig nature Bilirubin, Total 2.5 (H) 0.2 - 1.2 mg/dL [facility] Bilirubin, Direct 0.8 (H) < OR = 0.2 mg/dL [facility] Bilirubin, Indirect 1.7 (H) 0.2 - 1.2 mg/dL (calc) [facility] Specimen Blood Narrative Performed At FASTING:NO [facility] FASTING: NO Resulting Agency Comment Performing Organization Information: Site ID: [facility] Name: [facility] Address: [address] [place] [phone] Director: Jj Carrasco Performing Organization Address [facility] Phone Number [place] [phone] [place] [address] [facility] Comprehensive metabolic panel (07/26/2020 4:15 PM LEAD BASED PAINT TECHNICIAN)Only the most recent of19 resultswithin the time period is included. Glucose 93 65 - 139 [facility] Comment: mg/dL Non-fasting reference interval BUN 38 (H) 7 - 25 mg/dL [facility] Creatinine 2.80 (H) 0.50 - 0.99 [facility] Comment: mg/dL For patients >49 years of age, the reference limit for Creatinine is approximately 13% higher for people identified as -Burmese. eGFR If NonAfricn 17 (L) > OR = 60 [facility] Am mL/min/1.73m2 eGFR If Africn Am 20 (L) > OR = 60 [facility] mL/min/1.73m2 BUN/Creatinine 14 6 - 22 (calc) [facility] Ratio Sodium 136 135 - 146 [facility] mmol/L Potassium, Serum 4.2 3.5 - 5.3 [facility] mmol/L Chloride 107 98 - 110 [facility] mmol/L Carbon Dioxide, 21 20 - 32 [facility] Total mmol/L Calcium, Serum 9.8 8.6 - 10.4 [facility] mg/dL Protein, Total, 5.8 (L) 6.1 - 8.1 [facility] Serum g/dL Albumin 3.3 (L) 3.6 - 5.1 [facility] g/dL GLOBULIN ([facility]) 2.5 1.9 - 3.7 [facility] g/dL (calc) Albumin Globulin 1.3 1.0 - 2.5 [facility] Ratio (calc) Bilirubin, Total 2.5 (H) 0.2 - 1.2 [facility] mg/dL Alkaline 117 37 - 153 U/L [facility] Phosphatase, S AST (SGOT) 29 10 - 35 U/L [facility] ALT (SGPT) 11 6 - 29 U/L [facility] Specimen Blood Narrative Performed At FASTING:NO [facility] FASTING: NO Resulting Agency Comment Performing Organization Information: Site ID: A Name: [facility] Address: [address] [place] [phone] Director: Jj Carrasco Performing Organization Address [facility] Cent[facility]ode Phone Number [facility] [address] [place] [address] [facility] PLATELET ESTIMATION (05/02/2020 1:25 PM CDT)Only the most recent of3 results within the time period is included. Pathologist Sig nature Platelet Estimate DECREASED (A) ADEQUATE [facility] Specimen Narrative Performed At FASTING:NO [facility] FASTING: NO Resulting Agency Comment Performing Organization Information: Site ID: A Name: [facility] Address: [address] [place] [phone] Director: Jj Carrasco Performing Organization Address [facility]/Zipcode Phone Number [facility] [address] [place] [address] [facility] XR dxa bone density study (04/11/2020 11:51 AM CDT) Specimen Narrative Performed At FINAL REPORT [facility] Bone density study, 04/11/2020 Clinical History: Screening [...] Report Verified Date/Time: 04/11/2020 13:34:32 Reading Location: [address] Procedure Note Interface, External Ris In [...] Verified Date/Time: 04/11/2020 1 3:34:32 Reading Location: [address] Mamm Re ading Room Performing Organization Address City/State/Zipcode Phone Number [facility] CBC with platelet count + automated diff (04/11/2020 11:13 AM CDT)Only the most recent of16 resultswithin the time period is included. Pathologist Sig nature WBC 3.5 3.5 - 10.5 [facility] K/L [facility] RBC 2.51 (L) 3.93 - 5.22 [facility] M/L [facility] Hemoglobin 9.4 (L) 11.2 - 15.7 [facility] GM/DL [facility] Hematocrit 30.2 (L) 34.1 - 44.9 % [facility] MCV 120.3 (H) 79.4 - 94.8 fL [facility] MCH 37.5 (H) 25.6 - 32.2 pg [facility] MCHC 31.1 (L) 32.2 - 35.5 [facility] GM/DL [facility] RDW 14.6 (H) 11.7 - 14.4 % [facility] Platelets 57 (L) 150 - 450 K/CU [facility] MM [facility] MPV 10.4 9.4 - 12.3 fL [facility] nRBC 0 0 - 0 /100 WBC [facility] % Neutros 60 % [facility] % Lymphs 19 % [facility] % Monos 12 % [facility] % Eos 8 % [facility] % Baso 1 % [facility] # Neutros 2.09 1.56 - 6.13 [facility] # Lymphs 0.67 (L) 1.18 - 3.74 [facility] # Monos 0.43 (H) 0.24 - 0.36 [facility] # Eos 0.28 0.04 - 0.36 [facility] # Baso 0.02 0.01 - 0.08 [facility] Immature 0 0 - 1 % [facility] Granulocytes-Relativ [facility] Specimen Blood Performing Organization Address City/[facility]/Zipcode Phone Number [facility] [address] [place], [place] [phone] CENTER Alpha fetoprotein (AFP), tumor marker (04/11/2020 11:13 AM CDT)Only the most recent of3 resultswithin the time period is included. Pathologist Sig nature Alpha-Fetoprotein <2.0 <10.0 ng/mL [facility] Specimen Blood Narrative Performed At Lining Ironer ID - BS [facility] Performing Organization Address City/[facility]/Zipcode Phone Number [facility] [address] [place], [place] [phone] CENTER Miscellaneous lab test (02/15/2020 12:29 PM CDT)Only the most recent of2 results within the time period is included. Pathologist Sig nature Scan Result [facility] Specimen Blood Narrative Performed At This result has an attachment that is no t available. Performing Organization Address City/State/Zipcode Phone Number [facility] [address] [facility] [place] Magnesium (02/15/2020 12:29 PM CDT)Only the most recent of13 resultswithin the time period is included. Pathologist Sig nature Magnesium 1.8 1.6 - 2.6 mg/dL [facility] Specimen Blood Narrative Performed At Lining Ironer ID - LM [facility] Performing Organization Address City/State/Zipcode Phone Number [facility] [address] [place] [address] CENTER RHYTHM STRIP - SCAN [...] analytical performance characteristics have been determined by [facility]. It has not been cleared or approved by FDA. This assay has been validated pursuant to the CLIA regulations and is used for clini steven purposes. Normetanephrine 213 (H) < OR = 148 [facility] Comment: pg/mL INCORPORATED This test was developed and its analytical performance characteristics have been determined by [facility]. It has not been cleared or [...] um Chromogranin A for confirmation. Reference: (1) Algeciras-Schimnich A et al, Plasma Chromogranin A or Urine Fractionated Metanephrines Follow-Up Testing Improves the Diagnosti c Accuracy of Plasma Fractionated Metanephrines for Pheochromocytoma. The J [facility] of Clinical Endocrinology and Metabolism 93 (1),91-95, 2007. For additional information, please refer to http://education.OptoNova/faq/MetFractFree (This link is being provided for informational/educati onal purposes only.) This test was developed and its analytical performance characteristics have been determined by [employer] [facility]. It has not been cleared or approved by FDA. This assay has been validated pursuant to the CLIA regulations and is used for clini steven purposes. Specimen Blood Narrative Performed At Performing Lab [facility] [employer] [facility] [address] [place] [address] Mark Encarnacion MD, PhD, AMINA Performing Organization Address City/[facility] Cent[facility]ode Phone Number [place] [address] [facility] Calcium, Ionized (01/26/2020 3:50 AM CDT)Only the most recent of7 resultswithin the time period is included. Pathologist Sig nature Calcium, Ion 1.11 (L) 1.12 - 1.27 mmol/L [facility] pH, Blood 7.41 [facility] Specimen Blood Performing Organization Address [facility] Centercode Phone Number [address] [address] CENTER Phosphorus (01/26/2020 3:50 AM CDT)Only the most recent of7 resultswithin the time period is included. Pathologist Sig nature Phosphorus 3.2 2.3 - 4.7 mg/dL [facility] Specimen Blood Narrative Performed At Lining Ironer ID - BS [facility] Performing Organization Address [facility]/Zipcode Phone Number [address] [address] [place] Hepatic function panel (01/26/2020 3:50 AM CDT)Only the most recent of13 resultswithin the time period is included. Pathologist Sig nature Protein, Total 5.7 (L) 6.0 - 8.3 gm/dL [facility] Albumin 3.4 (L) 3.5 - 5.0 g/dL [facility] Total Bilirubin 6.9 (H) 0.2 - 1.2 mg/dL [facility] Bilirubin, Direct 2.2 (H) 0.1 - 0.5 mg/dL [facility] Alkaline Phosphatase 58 40 - 150 U/L [facility] AST 36 (H) 5 - 34 U/L [facility] ALT 13 6 - 55 U/L [facility] Specimen Blood Narrative Performed At Lining Ironer ID - BS [facility] Specimen moderately icteric Performing Organization Address City/State/Zipcode Phone Number [facility] [address] [place] [address] [place] Manual Differential (01/25/2020 3:47 AM CDT)Only the most recent of7 results within the time period is included. Pathologist Sig nature % Neutros 66 % [facility] % Lymphs 24 % [facility] % Monos 7 % [facility] % Eos 2 % [facility] % Metamyelo 1 (H) 0 - 0 % [facility] # Neutros 0.92 (L) 1.56 - 6.13 K/ul [facility] # Lymphs 0.34 (L) 1.18 - 3.74 K/ul [facility] # Monos 0.10 (L) 0.24 - 0.36 K/uL [facility] # Eos 0.03 (L) 0.04 - 0.36 K/uL [facility] # Metamyelo 0.01 (H) 0.00 - 0.00 K/uL [facility] Total Counted 100 [facility] Smudge Cells Present [facility] Giant Platelet Present [facility] Anisocytosis 2+ moderate [facility] Macrocytes 2+ moderate [facility] Poikilocytes 2+ moderate [facility] Arlington Cells 2+ moderate [facility] Artifact Present [facility] Platelet Conc Decreased [facility] [facility] Specimen Blood Narrative Performed At Lining Ironer ID - [id number] [facility] Lining Ironer ID - Maria Del Carmen Silvio User comments: Slide comments: Performing Organization Address City/State/Zipcode Phone Number [facility] [address] [place] [address] CENTER Basic Metabolic Panel (01/25/2020 3:47 AM CDT)Only the most recent of10 results within the time period is included. Sodium 140 136 - 145 meq/L [facility] Potassium 3.4 (L) 3.5 - 5.1 meq/L [facility] Chloride 105 98 - 107 meq/L [facility] CO2 25 22 - 29 meq/L [facility] BUN 31 (H) 7 - 21 mg/dL [facility] Creatinine 2.35 (H) 0.57 - 1.25 [facility] mg/dL [facility] Glucose 108 (H) 70 - 105 mg/dL [facility] Calcium 8.7 8.4 - 10.2 [facility] mg/dL [facility] EGFR 21Comment: ESTIMATED mL/min/1.73 sq [facility] GFR IS NOT m [facility] CREATININE CLEARANCE IN PREDICTING GLOMERULAR FILTRATION RATE. ESTIMATED GFR IS NOT APPLICABLE FOR DIALYSIS PATIENTS. Specimen Blood Narrative Performed At Lining Ironer ID - PIAYA L [facility] Specimen moderately icteric Performing Organization Address City/State/Zipcode Phone Number [facility] [address] [place] [address] CENTER TRANSFUSION SERVICE REPORT - [...] CDT) Narrative Performed At Epifanio Giles RRT, SLUICE TENDER 01/24/20 10:52 AM [facility] PFT CHARTING REPORT Infection Control/Hand Hygiene procedure s followed throughout the encounter with patient: Yes Patient Identification Method: Patient n celia verified on armband, and Medical record on armband, Is the order complete?: Yes Account ID#: [id number] Patient Name: Cici Calderon Birthdate: 1955 Age: [...] CDT) Narrative Performed At Epifanio Giles RRT, RCP 01/24/20 10:52 AM [facility] PFT CHARTING REPORT Infection Control/Hand Hygiene procedure s followed throughout the encounter with patient: Yes Patient Identification Method: Patient n celia verified on armband, and Medical record on armband, Is the order complete?: Yes Account ID#: [id number] Patient Name: Cici Calderon Birthdate: 1955 Age: [...] CDT) Narrative Performed At Epifanio Giles RRT, RCP 01/24/20 10:52 AM [facility] PFT CHARTING REPORT Infection Control/Hand Hygiene procedure s followed throughout the encounter with patient: Yes Patient Identification Method: Patient n celia verified on armband, and Medical record on armband, Is the order complete?: Yes Account ID#: [id number] Patient Name: Cici Calderon Birthdate: 1955 Age: [...] Narrative Performed At Janina Meehan RRT, RCP 01/24/20 2:39 PM [facility] PFT CHARTING REPORT Infection Control/Hand Hygiene procedure s followed throughout the encounter with patient: Yes Patient Identification Method: Patient n celia verified on armband, and Medical record on armband, Is the order complete?: Account ID#: [id number] Patient Name: Cici Calderon Birthdate: 1955 Age: [...] within the time period is included. Pathologist Nam ch CROSSMATCH COMPATIBLE SAFETRACE TX Unit ABO A Pos SAFETRACE TX UNIT NUMBER [id number] SAFETRACE TX Status TX_TIMEINCHART SAFETRACE [place] Blood Bank Product RED BLOOD CELLS [place]AF[place]ACE [place] PRODUCT CODE [id number] [place] Specimen Other Performing Organization Address City/State/Zipcode Phone Number SAF[place]ACE [place] B-type Natriuretic Factor (BNP) (01/23/2020 4:32 AM CDT)Only the most recent of 2 resultswithin the time period is included. Pathologist Sig nature BNP 2,179 (H) 0 - 100 pg/mL [facility] Specimen Blood Narrative Performed At Lining Ironer ID - MITCH Linares [facility] Performing Organization Address City/[facility] Cent[facility]ode Phone Number [address] [address] CENTER Prepare Leuko-Red PLT (01/22/2020 11:54 PM CDT)Only the most recent of2 results within the time period is included. Pathologist Sig nature Unit ABO A Pos SAFETRACE TX UNIT NUMBER [id number] SAFETRACE TX Status WORK IN PROGRESS SAFETRACE TX Blood Bank Product PLATELETS SAFETRACE TX PRODUCT CODE [id number] SAFETRACE TX Unit ABO O Pos SAFETRACE TX UNIT NUMBER [id number] SAFETRACE TX Status TX_TIMEINCHART SAFETRACE TX Blood Bank Product PLATELETS SAFETRACE TX PRODUCT CODE [id number] SAFETRACE [place] Specimen Blood Performing Organization Address [facility] Phone Number SAFETRACE [place] Transfuse Leuko-Red RBC (01/22/2020 2:30 PM CDT)Only the most recent of2 resultswithin the time period is included.Cortisol (01/22/2020 8:23 AM CDT)Only the most recent of2 resultswithin the time period is included. Pathologist Sig nature Cortisol, Total 1.6 (L) 3.7 - 19.4 ug/dL [facility] Specimen Blood Narrative Performed At Lining Ironer ID - MITCH Linares [facility] CENTER Performing Organization Address City/[facility] Centercode Phone Number [address] [address] CENTER ABORH, manual (01/22/2020 4:34 AM CDT) Pathologist Sig nature ABO Grouping A [facility] Rh Factor POS [facility] [place] Specimen Blood Performing Organization Address [facility] Centercode Phone Number [address] [address] Direct AHG (RAMIREZ)/Direct Jewel (01/22/2020 4:34 AM CDT) Pathologist Sig nature Direct AHG-IGG NEGATIVE [facility] Direct AHG-C3B, C3D NEGATVIE [facility] Specimen Blood Performing Organization Address [facility] Centercode Phone Number [address] [address] Body fluid culture + gram stain (01/21/2020 4:54 PM CDT) Result No growth [facility] Gram Stain Result <1+ White blood [facility] cells seen [facility] Gram Stain Result No organisms seen [facility] Specimen Body Fluid - Ascites (disorder) Performing Organization Address [facility] Phone Number [address] [phone] CENTER Body fluid cell count with differential (01/21/2020 4:54 PM CDT) Appearance Hazy (A) Clear [facility] Color Cele (A) Colorless, [facility] RBCs 4,000 (H) <=1 /cu mm [facility] Adjusted WBC Count 86 (H) <=5 /cu mm [facility] Lining Cells 1 <=1 /cu mm [facility] % Segs 7 % [facility] % Lymphs 83 % [facility] % Monos 10 % [facility] % Eos 0 % [facility] % Baso 0 % [facility] Container Body Fluid Sterile Vial [facility] Specimen Body Fluid - Ascites (disorder) Performing Organization Address [facility] Centercode Phone Number [facility] [address] [place] [address] CENTER US paracentesis (01/21/2020 4:40 PM CDT) Specimen Narrative Performed At FINAL REPORT [facility] Ultrasound guided paracentesis Clinical History: Ascites. Sedation: None. Customer Experience Consultant: Christine Ward PA-C Supervising Physician: Natan Chisholm MD Hospitality Manager: None. Estimated Blood Loss: < 1 [...] anesthesia was achieved with lidocaine, a 5 Botswanan one-step catheter was advanced into the peritoneal cavity under ultrasound guidance. After completion of drainage, the cathet er was removed. There was no evidence of complication. Impression: Successful ultrasound guided paracentesi s. Signed: Natan Chisholm MD Report Verified Date/Time: 01/24/2020 09:43:05 Reading Location: [address] Reading Room Procedure Note Interface, External Ris In - 01/24/2020 9:45 AM CDT FINAL REPORT Ultrasound guided paracentesis Clinical History: Ascites. Sedation: None. Customer Experience Consultant: Christine Ward PA-C Supervising Physician: Natan Chisholm MD Hospitality Manager: None. Estimated Blood Loss: < 1 [...] anesthesia was achieved with lidocaine, a 5 Botswanan one-step catheter was advanced into the peritoneal cavity under ultrasound guidance. After completion of drainage, the cathet er was removed. There was no evidence of complication. Impression: Successful ultrasound guided paracentesi s. Signed: Natan Chisholm MD Report Verified Date/Time: 01/24/2020 0 9:43:05 Reading Location: [facility] [id number] [facility] Reading Room Performing Organization Address City/[facility]/Zipcode Phone Number GE [facility] Peripheral Blood Smear - Hold only (01/21/2020 9:31 AM CDT) Pathologist Sig dima Peripheral Smear Save saved [facility] H [facility] Specimen Blood Performing Organization Address City/[facility]/Zipcode Phone Number [address] [address] CENTER Reticulocyte count (01/21/2020 9:31 AM CDT)Only the most recent of2 results within the time period is included. Pathologist Sig nature % Retic 5.3 (H) 0.5 - 1.7 % [facility] Specimen Blood Narrative Performed At Lining Ironer ID - [id number] [facility] Performing Organization Address [facility]/Zipcode Phone Number [address] [address] CENTER XR chest 1 view [...] Report Verified Date/Time: 01/21/2020 10:03:32 Reading Location: [facility] Reading Room Procedure Note Interface, External [...] Verified Date/Time: 01/21/2020 1 0:03:32 Reading Location: [facility] Reading Room Performing Organization Address City/State/Zipcode Phone Number [facility] Metanephrines, 24 hour urine (01/20/2020 10:51 PM CDT) TOTAL VOLUME 1000 mL [facility] Metanephrine 205 90 - 315 [facility] Comment: mcg/24 h INCORPORATED This test was developed and its analytical performance characteristics have been determined by [facility]. It has not been cleared or approved by FDA. This assay has been validated pursuant to the CLIA regulations and is used for clini steven purposes. Normetanephrine 668 481 - 860 [facility] Comment: mcg/24 h INCORPORATED This test was developed and its analytical performance characteristics have been determined by [facility]. It has not been cleared or [...] analytical performance characteristics have been determined by [employer] [facility]. It has not been cleared or approved by FDA. This assay has been validated pursuant to the CLIA regulations and is used for clini steven purposes. Specimen Urine Narrative Performed At Performing Lab [facility] [place] [address] [place] [address] Mark Encarnacion MD, PhD, AMINA Performing Organization Address City/State/Zipcode Phone Number [employer] [place] [address] INCORPORATED [address] [address] [facility] Catecholamines, Fractionated, 24hr urine (01/20/2020 10:51 PM CDT) TOTAL VOLUME 1000 mL [facility] Epinephrine,24 Hr Ur <2 (L) 2 - 24 [facility] Comment: mcg/24 h INCORPORATED Result below clinical reportable range for this analyt e, which is 2 mcg/L. Reported result was calculated using 2 mcg/L. This test was developed and its analytical performance characteristics have been determined by [employer] [facility]. It has not been cleared or approved by FDA. This assay has been validated pursuant to the CLIA regulations and is used for clini steven purposes. Norepinephrine 9 (L) 15 - 100 [facility] Comment: mcg/24 h INCORPORATED This test was developed and its analytical performance characteristics have been determined by [employer] [facility]. It has not been cleared or approved by FDA. This assay has been validated pursuant to the CLIA regulations and is used for clini steven purposes. Calculated Total 9 (L) 26 - 121 [facility] E+Ne Comment: mcg/24 h INCORPORATED This test was developed and its analytical performance characteristics have been determined by [employer] [facility]. It has not been cleared or approved [...] analytical performance characteristics have been determined by [facility]. It has not been cleared or approved by FDA. This assay has been validated pursuant to the CLIA regulations and is used for clini steven purposes. Creatinine,24 Hr 0.88 0.50 - 2.15 [facility] Urin g/24 h INCORPORATED Specimen Urine Narrative Performed At Performing Lab [facility] [address] [place] [address] Mark Encarnacion MD, PhD, AMINA Performing Organization Address City/[facility]/Zipcode Phone Number [place] [address] INCORPORATED [address] Type and screen, automated (01/20/2020 8:39 PM CDT)Only the most recent of2 resultswithin the time period is included. Pathologist Sig nature ABO/RH AUTOMATED A POSITIVE [facility] (BEAKER) [facility] Ab Scrn NEGATIVE [facility] Specimen Blood Performing Organization Address City/[facility]/Zipcode Phone Number [facility] [address] [place] [address] MR abdomen without IV contrast (01/20/2020 5:54 PM CDT) Specimen Narrative Performed At FINAL REPORT [employer] TECHNIQUE: MRI of the abdomen WITHOUT in [...] Report Verified Date/Time: 01/21/2020 07:51:30 Reading Location: [facility] Reading Room - [place] [address] Procedure Note Interface, External Ris In - [...] Verified Date/Time: 01/21/2020 0 7:51:30 Reading Location: [facility] Diagnostic Imagin Reading Room - [place] [address] 112 Performing Organization Address City/State/Zipcode Phone Number GE R[facility] Urinalysis w/Microscopic + Reflex to Culture (01/19/2020 11:19 PM CDT) Color, UA Yellow [facility] Clarity, UA Hazy [facility] Specific [place], 1.017 1.001 - 1.035 [facility] pH, UA 5.5 5.0 - 8.0 [facility] Protein, UA 20 mg/dL (A) Negative [facility] Glucose, UA Negative Negative [facility] Ketones, UA Negative Negative [facility] Bilirubin, UA Negative Negative [facility] Blood, UA Small (A) Negative [facility] Nitrite, UA Negative Negative [facility] Leukocytes, UA Trace (A) Negative [facility] Urobilinogen, UA 0.2 0.2 - 1.0 mg/dL [facility] RBC, UA 1 /HPF [facility] WBC, UA 3 /HPF [facility] Bacteria, UA Rare [facility] Squam Epithel, UA 3 /HPF [facility] Hyaline Casts, UA 3 /LPF [facility] Specimen Source [facility] Specimen Urine Performing Organization Address City/[facility]/[place] [address] [place] Sodium, random urine (01/19/2020 11:19 PM CDT)Only the most recent of3 results within the time period is included. Pathologist Sig nature Sodium Urine <20 meq/L [facility] ICAL [place] Specimen Urine Narrative Performed At Reference Range: No Normals [facility] Lining Ironer ID - PIAYA L Performing Organization Address City/[facility]/[place] [address] [place] Urinalysis w/Microscopic (01/19/2020 11:19 PM CDT)Only the most recent of2 resultswithin the time period is included. Color, UA Yellow [facility] Clarity, UA Hazy [facility] Specific [place], 1.017 1.001 - 1.035 [facility] pH, UA 5.5 5.0 - 8.0 [facility] Protein, UA 20 mg/dL (A) Negative [facility] Glucose, UA Negative Negative [facility] Ketones, UA Negative Negative [facility] Bilirubin, UA Negative Negative [facility] Blood, UA Small (A) Negative [facility] Nitrite, UA Negative Negative [facility] Leukocytes, UA Trace (A) Negative [facility] Urobilinogen, UA 0.2 0.2 - 1.0 mg/dL [facility] RBC, UA 1 /HPF [facility] WBC, UA 3 /HPF [facility] Bacteria, UA Rare [facility] Squam Epithel, UA 3 /HPF [facility] Hyaline Casts, UA 3 /LPF [facility] Specimen Source [facility] Specimen Urine Narrative Performed At Lining Ironer ID - [auto] [facility] Lining Ironer ID - tech Performing Organization Address City/[facility] Cent[facility]ode Phone Number [address] [address] CENTER Blood Culture - Routine (Right Venipuncture) (01/19/2020 9:45 PM CDT)Only the most recent of4 resultswithin the time period is included. Pathologist Sig nature Result No growth in 5 days [facility] Specimen Blood - Entire right upper arm (body str ucture) Performing Organization Address City/[facility]/Zipcode Phone Number [address] [address] CENTER [id number] PHENOTYP (01/19/2020 9:43 PM CDT) Specimen Blood - Entire right upper arm (body str ucture) Narrative Performed At This result has an attachment that is no t available. Performing Organization Address City/State/Zipcode Phone Number [facility] [address] [facility], [place] Blood gas, arterial (01/19/2020 3:44 PM CDT) Pathologist Sig nature pH, Arterial 7.42 7.35 - 7.45 [facility] pCO2, Arterial 36 35 - 45 mmHg [facility] pO2, Arterial 78 (L) 80 - 90 mmHg [facility] O2 Sat, Arterial 96.2 96.0 - 97.0 % [facility] HCO3, Arterial 23 21 - 29 mmol/L [facility] Base Excess, Arterial -1.9 -2.0 - 3.0 [facility] mmol/L [facility] Patient Temperature 36.1 C [facility] FIO2 28.0 % [facility] Specimen Blood, Arterial Performing Organization Address City/[facility]/Zipcode Phone Number [facility] [address] [place] [address] [place] Cryptococcal antigen (01/19/2020 3:04 PM CDT) Cryptococcal Negative Negative, [facility] Antigen, Serum Interference [facility] Specimen Blood Performing Organization Address City/[facility] Centercode Phone Number [facility] [address] [place] [address] [place] Rubeola antibody IgG (01/19/2020 3:04 PM CDT) [...] patient. For additional information, please refer to http://education.[employer]/faq/IXM172 (This link is being provided for informational/ educational purposes only.) Specimen Blood Narrative Performed At Performing Lab [facility] *QDID [facility] Infectious Dise [employer] [address] [place] [address] Sudhakar Hargrove MD Performing Organization Address City/[facility] Centercode Phone Number [place] [address] [address] [facility] Rubella antibody, IgG (01/19/2020 3:04 PM CDT) Pathologist Sig nature Rubella IgG Quant 127.0 (H) <8.0 IU/mL [facility] Specimen Blood Narrative Performed At Rubella IgG Result Interpretation: [facility] </= 7.0 IU/mL Negative - Presumed non-immune 8.0 - 9.9 IU/mL Equivocal >= 10.0 IU/mL Positive - Presumed immune Performing Organization Address City/[facility]/Zipcode Phone Number [address] [address] CENTER Varicella zoster antibody, IgG (01/19/2020 3:04 PM CDT) Pathologist Sig nature Varicella IgG 3.6 [facility] Specimen Blood Narrative Performed At VARICELLA ZOSTER RESULT INTERPRETATIONS: [facility] <=0.8 Al Nonreactive: Presumed non-immune to VZV 0.9-1.0 Al Equivocal >=1.1 Al Reactive: Presumed immune to VZV Performing Organization Address [facility] Centercode Phone Number [address] [address] CENTER Mumps antibody, IgG (01/19/2020 [...] At Performing Lab [facility] *QDID [facility] Infectious [facility] [employer] [address] [place] [address] Sudhakar Hargrove MD Performing Organization Address City/State/Zipcode Phone Number [place] [address] [facility] US breast bilateral (01/19/2020 9:10 AM [...] Report Verified Date/Time: 01/19/2020 09:52:28 Reading Location: [facility] 10th Flr Mammo Re ading Room Procedure [...] Verified Date/Time: 01/19/2020 0 9:52:28 Reading Location: [facility] 10th Flr Mammo Re ading Room Performing [...] analytical performance characteristics have been determined by [employer] [facility]. It has not been cleared or approved by FDA. This assay has been validated pursuant to the CLIA regulations and is used for clini steven purposes. Specimen Blood Narrative Performed At Performing Lab [facility] [place] [address] [place] [address] Mark Encarnacion MD, PhD, AMINA Performing Organization Address [facility] Centercomd [place] [address] [place] [address] [facility] Renin, plasma (01/19/2020 4:11 AM CDT) PRA,LC/MS/MS 1.51 0.25 - 5.82 [facility] Comment: ng/mL/h INCORPORATED This test was developed and its analytical performance characteristics have been determined by [employer] [facility]. It has not been cleared or approved by FDA. This assay has been validated pursuant to the CLIA regulations and is used for clini steven purposes. Specimen Blood Narrative Performed At Performing Lab [facility] [employer] [place] [address] [place] [address] Mark Encarnacion MD, PhD, AMINA Performing Organization Address [facility] Phone Number [employer] [place] [address] [facility]ORPOR[facility] [address] [facility] [address] abdomen without IV contrast (01/19/2020 12:40 AM CDT) Specimen Narrative Performed At FINAL REPORT [employer] TECHNIQUE: CT of the abdomen WITHOUT int [...] Report Verified Date/Time: 01/19/2020 08:09:04 Reading Location: [facility] Reading Room - [place] [address] Procedure Note Interface, External Ris In - [...] Verified Date/Time: 01/19/2020 0 8:09:04 Reading Location: [facility] Reading Room - [place] [address] 1129 Performing Organization Address City/State/Zipcode Phone Number [employer] US renal complete (01/19/2020 12:20 AM CDT) Specimen Narrative Performed At FINAL REPORT [employer] Ultrasound of the Kidneys Clinical History: Re-examine [...] Date/Time: 01/19/2020 0 1:26:59 Performing Organization Address City/[facility] Phone Number [facility] Protein, random urine (01/18/2020 8:49 PM CDT) Pathologist Sig nature Protein, Urine 45 (H) 0 - 14 mg/dL [facility] Specimen Urine - Urine, Sterile Collection Narrative Performed At Lining Ironer ID - EDWIN B [facility] Performing Organization Address [facility] Centercode Phone Number [address] [address] CENTER Creatinine, random urine (01/18/2020 8:49 PM CDT)Only the most recent of2 resultswithin the time period is included. Pathologist Sig nature Creatinine, Ur 181.3 mg/dL [facility] Specimen Urine - Urine, Sterile Collection Narrative Performed At Reference Range: No Normals [facility] Lining Ironer ID - EDWIN B Performing Organization Address [facility] Centercode Phone Number [address] [address] [place] Eosinophil smear (01/18/2020 8:49 PM CDT) Pathologist Sig nature Eosinophil Smear Rare EOS =less No EOS seen [facility] than 5% WBCs [facility] MEDICAL seen are EOS (A) [place] Specimen Urine - Urine, Sterile Collection Performing Organization Address City/State/Zipcode Phone Number [facility] [address] [place] [address] [place] Myocardial Perfusion Pet/CT (Rest & Stress) (01/18/2020 9:20 AM CDT) Specimen Narrative Performed At FINAL REPORT [facility] PROCEDURE: MYOCARDIAL PERFUSION PET IMAG ING (Rest/Stress) CPT CODE: 03038 INDICATION: Evaluation for liver transpl ant CARDIOVASCULAR [...] Report Verified Date/Time: 01/18/2020 12:45:40 Reading Location: [address] Reading Room Procedure Note Interface, External Ris In - 01/18/2020 12:47 PM CDT FINAL REPORT PROCEDURE: MYOCARDIAL PERFUSION PET IMAG ING (Rest/Stress) CPT CODE: [id number] INDICATION: Evaluation for liver transpl ant CARDIOVASCULAR [...] Verified Date/Time: 01/18/2020 1 2:45:40 Reading Location: [address] Med Reading Room Performing Organization Address City/State/Zipcode Phone Number [employer] RIS Treadmill tolerance(Non-Nuclear Treadmill) (01/18/2020 8:57 AM [...] o n 01/18/2020 9:20:19 AM Confirmed by Shqa GARCIA MICHAEL ([id number]) on 0 7:03:55 AM [...] 452 ms QTC Calculation(Bazett) 458 ms P [place] 59 degrees R [place] 32 degrees T [place] 56 degrees Normal sinus rhythm Low voltage [...] 452 ms QTC Calculation(Bazett) 458 ms P [place] 59 degrees R [place] 32 degrees T [place] 56 degrees Normal sinus rhythm Low voltage QRS Nonspecific ST abnormality 17 JAN 2020 11:05 Nonspecific T wave abnormality Nonspecif ic T wave abnormality, improved in QT has shortened Confirmed by MD FARHAT, CARLOSMark ([id number]) on 01/18/2020 2:19:38 PM Performing Organization [...] Address City/State/Zipcode Phone Number [facility] [address] [place] [address] [address] REPORT OF PROCEDURE - [...] nature Case Report Surgical Pathology Report Case: [id number] [facility] [address] [facility] Authorizing Provider: Sylvie George MD Collected: 01/17/2020 08:15 AM [facility] Ordering Location: [address] Received: 01/17/2020 01:50 PM MEDICAL CENTER Service Pathologist: Humaira Mendez MD Specimen: Duodenum, bio psy ADDENDUM THIS ADUODENUMIS ISSUED TO R EPORT THE FINDINGS IN THE DEEPER LEVELS OF THE BIOPSY AND GIVE THE FINAL DIAGNOSIS: [facility] Addendum [facility] electronically signed DUODENUM, ENDOSCOPIC BIOPSY: MEDICAL PARVIN TER by Humaira Mendez - ECTATIC VESSELS IN THE [place]AM[place], SUGGESTIVE OF PORTAL DUODENOPATHY MD Siva on - NO FEATURES OF CELIAC DISEASE SEEN 01/19/2020 at 4:12 PM - NO GRANULOMAS, DYSPLASIA OR MALIGNANCY SEEN DIAGNOSIS DUODENUM, ENDOSCOPIC BIOPSY: [facility] S Electronically signed - SUPERFICIAL FRAGMENTS OF SMALL BOWEL MUCOSA WITH GASTRIC FOVEOLAR METAPLASIA [facility] by [facility] MD samir Paniagua n 01/18/2020 at 3 :50 PM Signing Pathologist Direct Phone Line: CPT Code(s) 95194 [facility] CLINICAL HISTORY Procedure: upper endoscopy, biopsy and colonosc opy [facility] Pre and postop diagnosis: anemia [facility] SPECIMEN SOURCE A. Duodenum; biopsy [facility] GROSS DESCRIPTION A. The specimen is [facility] received in [facility] with the patient's name, accession number and "[email or web address]" and consists of one garduno-pink mucosal-covered pieces of tissue measuring 0.3 x 0.2 x 0.1 cm. The specimen is submitted entirely following filtration in a cassette A1. HS/pl MICROSCOPIC PERFORMED [facility] Specimen Tissue - Duodenal structure (body struct ure) Performing Organization Address [facility] Center[facility] Phone Number [address] [address] CENTER Lactate dehydrogenase (LDH) (01/16/2020 12:24 PM CDT) Pathologist Sig nature LDH 250 (H) 125 - 220 U/L [facility] Specimen Blood Narrative Performed At Lining Ironer ID - TUAN Mera [facility] Performing Organization Address [facility] Phone Number [address] [address] [place] Vitamin B12 and Folate (01/16/2020 11:25 AM CDT) Pathologist Sig nature Vitamin B12 1,107 (H) 213 - 816 pg/mL [facility] Folate 3.40 (L) >=7.00 ng/mL [facility] Specimen Blood Narrative Performed At Lining Ironer ID - ESTHER [facility] Performing Organization Address [facility] Phone Number [address] [address] CENTER HIV-1 Antigen with HIV-1/2 Antibody (01/16/2020 11:25 AM CDT) Pathologist Sig nature HIV-1 Antigen with Nonreactive Nonreactive [facility] HIV 1&2 Antibody [facility] Specimen Blood Narrative Performed At Lining Ironer ID - TUAN Mera [facility] Performing Organization Address City/[facility] Centercode Phone Number [facility] [address] [place] [address] CENTER Haptoglobin (01/16/2020 11:25 AM CDT) Pathologist Sig nature Haptoglobin <8 (L) 14 - 258 mg/dL [facility] Specimen Blood Narrative Performed At Lining Ironer ID - TUAN Mera [facility] Performing Organization Address [facility] Centercode Phone Number [facility] [address] [place], [place] [phone] CENTER US abdominal with doppler (01/16/2020 6:30 AM CDT) Specimen Narrative Performed At FINAL REPORT [employer] ULTRASOUND ABDOMEN COMPLETE, ULTRASOUND DUPLEX DOPPLER HISTORY: [...] Report Verified Date/Time: 01/16/2020 07:32:01 Reading Location: [facility] B1 C013T [facility] Reading Room Procedure Note Interface, [...] Verified Date/Time: 01/16/2020 0 7:32:01 Reading Location: [facility] B1 C013T [facility] Reading Room Performing Organization Address City/State/Zipcode Phone Number GE RIS Drug screen, urine, transplant (01/15/2020 9:52 PM CDT) Specimen Urine Narrative Performed At This result has an attachment that is no t available. Performing Organization Address City/State/Zipcode Phone Number [place] [address] [place] [address] Blood typing, automated - - at seperate draw time from initial type and screen (01/15/2020 6:16 PMCDT) Pathologist Sig nature ABO/RH AUTOMATED A POSITIVE [facility] (BEAKER) [facility] Specimen Blood Performing Organization Address City/[facility]/Zipcode Phone Number [facility] [address] [place], [place] [phone] CT chest without IV contrast (01/15/2020 5:54 PM CDT) Specimen Narrative Performed At FINAL REPORT GE [employer] CT of the chest, without contrast Clinical [...] Report Verified Date/Time: 01/15/2020 17:57:54 Reading Location: [facility] C013[facility] Reading Room Procedure Note Interface, External [...] Verified Date/Time: 01/15/2020 1 7:57:54 Reading Location: [facility] [address] [place] [address] Reading Room Performing Organization Address City/State/Zipcode Phone Number GE RIS XR chest 2 views (01/15/2020 4:57 PM CDT) Specimen Narrative Performed At FINAL REPORT [employer] RIS History: Cirrhosis, liver transplant shama luation [...] Report Verified Date/Time: 01/15/2020 17:16:49 Reading Location: [address] Reading Room Procedure Note Interface, External [...] Verified Date/Time: 01/15/2020 1 7:16:49 Reading Location: [address] Reading Room Performing Organization Address City/State/Zipcode [...] Report Verified Date/Time: 01/15/2020 17:22:12 Reading Location: [place] [id number] [facility] Reading Room Procedure Note Interface, External [...] Verified Date/Time: 01/15/2020 1 7:22:12 Reading Location: [facility] B1 C013T [facility] Reading Room Performing Organization Address [facility] Phone Number GE RIS Mitochondria M2 Antibody (IgG) (01/15/2020 4:17 PM CDT) Mitochondria M2 Ab <20.0 See Note: U [facility] Comment: INCORPORATED Reference Range: NEGATIVE: < OR = 20.0 EQUIVOCAL: 20.1-24.9 POSITIVE: > OR = 25.0 Specimen Blood Narrative Performed At Performing Lab [facility] EZ [facility] [address] [place] [address] Mark Encarnacion MD, PhD, AMINA Performing Organization Address [facility] Phone Number [place] [address] [facility] Iron, TIBC, % sat. (without ferritin) (01/15/2020 4:17 PM CDT) Pathologist Sig nature Iron 144.0 40.0 - 160.0 [facility] ug/dL [facility] TIBC 129 (L) 250 - 450 ug/dL [facility] Iron % Saturation 112 (H) 20 - 55 % [facility] Specimen Blood Narrative Performed At Lining Ironer ID - DB [facility] Performing Organization Address City/[facility]/Zipcode Phone Number [address] [address] CENTER Hepatitis C antibody (01/15/2020 4:17 PM CDT) Pathologist Sig nature Hepatitis C Ab Nonreactive Nonreactive [facility] Specimen Blood Narrative Performed At Lining Ironer ID - DB [facility] Performing Organization Address [facility]/Zipcode Phone Number [address] [address] [place] Cytomegalovirus antibody, IgM (01/15/2020 4:17 PM CDT) Pathologist Sig nature CMV IGM Negative Negative, Equivocal [facility] Specimen Blood Narrative Performed At CMV IgM Result Interpretation: [facility] </= 0.8 Al Negative 0.9-1.0 Al Equivocal >/= 1.1 Al Positive Performing Organization Address [facility] Phone Number [address] [address] [place] Actin (Smooth Muscle) Antibody, IgG (01/15/2020 4:17 [...] Lab [facility] [employer] [facility] [place] [address] [place] [address] Mark Encarnacion MD, PhD, AMINA Performing Organization Address City/[facility] Centercode Phone Number [place] [address] [facility] Anate-9-yjqdanpcgud (01/15/2020 4:17 PM CDT) Pathologist Sig nature A-1 Antitrypsin 121.20 90.00 - 200.00 [facility] mg/dL [facility] Specimen Blood Narrative Performed At Lining Ironer ID - DB [facility] Performing Organization Address City/[facility] Centercode Phone Number [address] [phone] CENTER Hepatitis A antibody, IgM (01/15/2020 4:17 PM CDT) Pathologist Sig nature Hep A IgM Nonreactive Nonreactive [facility] Specimen Blood Narrative Performed At Lining Ironer ID - DB [facility] Performing Organization Address [facility] Phone Number [address] [address] [place] Carbohydrate antigen 19-9 (CA 19-9) (01/15/2020 4:17 [...] Lab [facility] [place] [address] [place] [address] Mark Encarnacion MD, PhD, AMINA Performing Organization Address City/[facility] Phone Number [place] [address] [facility] Ceruloplasmin (01/15/2020 4:17 PM CDT) Pathologist Sig nature Ceruloplasmin 21 18 - 53 mg/dL [facility] JERAMY Specimen Blood Narrative Performed At Performing Lab [facility] *BEATRIZ [facility], [address] [place] [address] Jorje Jauregui MD, PhD Performing Organization Address City/[facility] Centercode Phone Number [place] [address] [facility] Zinc (01/15/2020 4:17 PM CDT) Zinc 39 (L) 60 - 130 [facility] Comment: mcg/dL INCORPORATED This test was developed and its analytical performance characteristics have been determined by [facility]. It has not been cleared or approved by [facility] FDA. This assay has been validated pursuant to the CLI A regulations and is used for clinical purposes. Specimen Blood Narrative Performed At Performing Lab [facility] *BEATRIZ [facility], [id number] [place] [id number] Jorje Jauregui MD, PhD Performing Organization Address City/[facility]/Zipcode Phone Number [place] [address] [facility] Hepatitis B core antibody, IgM (01/15/2020 4:17 PM CDT) Pathologist Sig nature Hep B C IgM Nonreactive Nonreactive [facility] Specimen Blood Narrative Performed At Lining Ironer ID - DB [facility] Performing Organization Address City/[facility]/Zipcode Phone Number [address] [address] CENTER EBV-VCA antibody, IgM (01/15/2020 4:17 PM CDT) Pathologist [facility] GABRIEL CHING VIRAL Negative Negative, Equivocal [facility] CAPSID ANTIGEN IGM [facility] Specimen Blood Narrative Performed At Gabriel Ching Viral Capsid Antigen IgM Result [facility] Interpretation: </= 0.8 Al Negative 0.9-1.0 Al Equivocal >/= 1.1 Al Positive Performing Organization Address [facility] Centercode Phone Number [address] [address] CENTER EBV-VCA antibody, IgG (01/15/2020 4:17 PM CDT) GABRIEL CHING VIRAL Positive (A) Negative, [facility] CAPSID ANTIGEN IGG Equivocal [facility] Specimen Blood Narrative Performed At Gabriel Ching Viral Capsid Antigen IgG Result [facility] Interpretation: </= 0.8 Al Negative 0.9-1.0 Al Equivocal >/= 1.1 Al Positive Performing Organization Address [facility]/Zipcomd Phone Number [address] [address] [place] Hepatitis B core antibody, total (01/15/2020 4:17 PM CDT) Pathologist Sig nature Hep B Core Total Ab Nonreactive Nonreactive [facility] Specimen Blood Narrative Performed At Lining Ironer ID - CAROLINA F [facility] Performing Organization Address [facility] Centercode Phone Number [address] [address] CENTER Vitamin D, 25-Hydroxy (01/15/2020 4:17 PM CDT) Pathologist Sig nature Vitamin D 25-Hydroxy 6.2 (L) 6.6 - 49.9 ng/mL [facility] Specimen Blood Narrative Performed At Effective 05/07/2017: Reference Range Ch von [facility] New: 6.6-49.9 ng/mL Previous: 13.0-47.8 ng/mL Recommended Vitamin D Target Range: 30.0-40.0 ng/mL Lining Ironer ID - DB Performing Organization Address [facility] Phone Number [address] [address] CENTER RPR (01/15/2020 4:17 PM CDT) Pathologist Sig nature RPR Nonreactive Nonreactive [facility] Specimen Blood Performing Organization Address [facility] Phone Number [address] [address] CENTER Hepatitis B surface antibody (01/15/2020 4:17 PM CDT) Pathologist Sig nature Hep B S Ab 25.0 (H) <8.0 mIU/mL [facility] Specimen Blood Narrative Performed At Lining Ironer ID - DB [facility] Performing Organization Address City/[facility] Centercode Phone Number [address] [address] [place] Hepatitis B surface antigen (01/15/2020 4:17 PM CDT) Pathologist Sig nature HBsAg Screen Nonreactive Nonreactive [facility] Specimen Blood Narrative Performed At Specimen is considered negative for HBsAg. [facility] Performing Organization Address City/[facility] Centercode Phone Number [address] [address] [place] Cytomegalovirus antibody, IgG (01/15/2020 4:17 PM CDT) CYTOMEGALOVIRUS, Positive (A) Negative, [facility] IGG Equivocal [facility] Specimen Blood Narrative Performed At CMV IgG Result Interpretation: [facility] </= 0.8 Al Negative 0.9-1.0 Al Equivocal >/=1.1 Al Positive Performing Organization Address [facility] Phone Number [address] [address] [place] aPTT (01/15/2020 4:17 PM CDT) Pathologist Sig nature PTT 36.8 (H) 22.5 - 36.0 seconds [facility] Specimen Blood Performing Organization Address [facility] Centercode Phone Number [address] [address] [place] Fibrinogen (01/15/2020 4:17 PM CDT) Pathologist Sig nature Fibrinogen 114 (L) 225 - 434 mg/dl [facility] Specimen Blood Performing Organization Address [facility] Centercode Phone Number [address] [address] [place] Anti-Nuclear Antibody (REILLY) (01/15/2020 4:17 PM CDT) Pathologist Sig nature REILLY Negative Negative [facility] Specimen Blood Narrative Performed At Test performed by IFA method. [facility] Test performed by IFA method. Performing Organization Address City/[facility]/Zipcode Phone Number [address] [address] CENTER T3 (01/15/2020 4:17 PM CDT) Pathologist Sig nature T3, Total 51 48 - 159 ng/dL [facility] Specimen Blood Narrative Performed At This result has an attachment that is no t available. Performing Organization Address City/State/Zipcode Phone Number [facility] [address] [facility] [place] Transferrin (01/15/2020 4:17 PM CDT) Pathologist Sig nature Transferrin 102 (L) 174 - 382 mg/dL [facility] Specimen Blood Narrative Performed At Lining Ironer ID - DB [facility] Specimen moderately icteric Performing Organization Address [facility] Phone Number [address] [address] CENTER TSH (01/15/2020 4:17 PM CDT) Pathologist Sig nature TSH 5.549 (H) 0.350 - 4.940 uIU/mL [facility] Specimen Blood Narrative Performed At Lining Ironer ID - [facility] [place] Performing Organization Address City/[facility] Centercode Phone Number [address] [address] CENTER T4 (01/15/2020 4:17 PM CDT) Pathologist Sig nature T4, Total 4.3 (L) 4.9 - 11.7 ug/dL [facility] Specimen Blood Narrative Performed At Lining Ironer ID - NTP [facility] ICAL [place] Performing Organization Address City/[facility]/Zipcode Phone Number [address] [address] CENTER Hemoglobin A1c (01/15/2020 4:17 PM CDT) Pathologist Sig nature Hemoglobin A1C <3.8 (L) 4.3 - 6.1 % [facility] Specimen Blood Performing Organization Address [facility] Phone Number [address] [address] CENTER Ferritin (01/15/2020 4:17 PM CDT) Pathologist Sig nature Ferritin 489.86 (H) 5.00 - 275.00 ng/mL [facility] Specimen Blood Narrative Performed At Lining Ironer ID - NTP [facility] Performing Organization Address [facility] Phone Number [address] [address] CENTER Carcinoembryonic Antigen (CEA) (01/15/2020 4:17 PM CDT) Pathologist Sig nature CEA, SERUM 7.9 (H) 0.0 - 5.0 ng/mL [facility] Specimen Blood Narrative Performed At Lining Ironer ID - DB [facility] Performing Organization Address [facility] Phone Number [address] [address] CENTER Ethanol (01/15/2020 4:17 PM CDT) Pathologist Sig nature Ethanol Lvl <10 <=10 mg/dL [facility] Specimen Blood Narrative Performed At Lining Ironer ID - DB [facility] Performing Organization Address City/[facility] Centercode Phone Number [address] [address] CENTER 2D Echo W/Doppler(CW/PW/Color) (01/15/2020 2:45 PM CDT) Pathologist Sig nature Ejection Fraction [facility] Specimen Narrative Performed At Transthoracic Echocardiography Report (T TE) [facility] Patient Name CICI CALDERON Date of Study 01/15/2020 ALYSE Gender Female Visit Number [id number] Race Unknown Room Number 1515 Number Date of 1955 Referring Physician Ren Hernandez MD Age 64 year(s) Assistant Broker Lisa Jessicaignacia [facility] S Interpreting Jai grajeda MD Physician [...] Study 01/15/2020 ALYSE Gender Female Visit Number [id number] Race Unknown Room [place] [address] Number Date of 1955 [facility] Physician Ren Hernandez MD Age 64 year(s) [...] City/State/Zipcode Phone Number [facility] Carotid doppler bilateral (01/15/2020 2:41 PM CDT) [facility] nature Ejection Fraction [facility] Specimen Impressions Performed At Right Impression [facility] 1. The internal, common and [...] At LAB - Carotid Duplex Study [facility] Demographics Patient Name CICI CALDERON Date of Study 01/15/2020 ALYSE Age 64 Visit Number [id number] Gender Female Accession Number [id number] Date of 1955 Referring Eliecer Carcamo Room Number [id number] Physician Assistant Broker Herbert Lechuga Interpreting Chelsea Resendez T Physician [...] Study 01/15/2020 ALYSE Age 64 Visit Number [id number] Gen margarita Female Accession Number [id number] Ramirez e of 1955 Referring Eliecer Todd m Number [id number] Physician Assistant Broker Herbert Lechuga Int erpretin Chelsea Resendez, T [...] Hepatitis panel, acute (01/15/2020 8:32 AM CDT) [facility] Hep A IgM Nonreactive Nonreactive [facility] Hep B C IgM Nonreactive Nonreactive [facility] Hepatitis C Ab Nonreactive Nonreactive [facility] HBsAg Screen Nonreactive Nonreactive [facility] Specimen Blood Narrative Performed At [facility] - [facility] Performing Organization Address [facility] Phone Number [address] [address] [place] Ammonia (01/15/2020 8:32 AM CDT) Pathologist Sig nature Ammonia 19 18 - 72 mol/L [facility] Specimen Blood Narrative Performed At [facility] - [facility] Performing Organization Address [facility] Center[facility]d Phone Number [address] [address] [place] Uric acid (01/15/2020 3:56 AM CDT) Pathologist Sig nature Uric Acid 15.7 (H) 2.6 - 7.2 mg/dL [facility] Specimen Blood Narrative Performed At [facility] - [facility] Specimen moderately icteric Performing Organization Address [facility] Phone Number [address] [address] [place] Gamma Glutamyl Transferase (GGT) (01/15/2020 3:56 AM CDT) Pathologist Sig nature GGT 15 9 - 64 U/L [facility] Specimen Blood Narrative Performed At [facility] - [facility] Specimen moderately icteric Performing Organization Address [facility] Phone Number [address] [address] [place] Lipid panel (01/15/2020 3:56 AM CDT) Pathologist Sig nature Triglycerides 86 mg/dL [facility] Cholesterol 101 mg/dL [facility] HDL 12 mg/dL [facility] LDL Calculated 72 mg/dL [facility] [place] Specimen Blood Narrative Performed At Triglyceride Reference Range: [facility] Low Risk <150 Borderline 150-199 High Risk 200-499 Very High Risk >=500 Cholesterol Reference Range: Low Risk <200 Borderline 200-239 High Risk >240 HDL Cholesterol Reference Range: Low Risk >=60 High Risk <40 LDL Cholesterol Reference Range: Optimal <100 Near Optimal 100-129 Borderline 130-159 High 160-189 Very High >=190 [facility] - [facility] Specimen moderately icteric Performing Organization Address City/State/Zipcode Phone Number [facility] [address] [place] [address] CENTER SARS-CoV2/RT-PCR (Asymptomatic ONLY) (01/14/2020 7:28 PM CDT) SARS-COV2/RT-PCR Not Detected Not Detected, [facility] Negative [facility] SARS-COV-2 [facility] PERFORMING LAB [facility] Specimen Other - Nasopharyngeal wall structure (b arsenio structure) Narrative Performed At Negative results do not preclude SARS-CoV-2 [facility] infection and should not be used [...] the Act. Fact Sheet for Healthcare Providers: https://www.[employer]/Documents/Xpert%20Xpre ss%20SARS%20CoV-2/Fact%20Sheets/302-3802%20SAR S-COV-2%20HEALTHCARE%20PROVIDERS%20FACT%20SHEE T.pdf Fact Sheet for Healthcare Patients: https://www.[employer]/Documents/Xpert%20Xpre ss%20SARS%20CoV-2/Fact%20Sheets/302-3801%20SAR S-COV-2%20PATIENT%20FACT%20SHEET.pdf Performing Laboratory: [address] [address] Performing Organization Address City/State/Zipcode Phone Number [facility] [address] [place] [address] CENTER after 07/31/2019 Insurance Payer Benefit Plan / Subscriber ID Effective Dates Phone Addre ss Type Group [employer] - [employer]ET[employer] MEDICARE [id number] 2019-Presen [phone] [address] MEDICARE [id number] HMO POS PPO t 2 [id number] [place] [address] Advance Directives For more information, please contact: [phone] Code Status Date Activated Date Inactivated Comments Full Code 01/14/2020 8:09 PM 01/26/2020 8:41 PM This code status was determined by: Patient
--- OUTSIDE RECORDS SUMMARY | 2020-07-31 07:38 | XMS REPORT ---
:[address] [facility] Address 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 Code:[address]-50) Levaquin vomiting/diarrh Drug Allergy Active ea ENCOUNTERS from 1955 to 2020-07-19 Encounter Location Date Provider [facility] [address], Mitzy English ARAUZ (nonalcoholic [facility] [address] [place] [address] K75.81 and AKI D without esophag itis K21.9 IMMUNIZATIONS Vaccine Route Administration Date Status Hepatitis [...] No Information VITAL SIGNS Height 63.5 in Jun, Weight 172 lbs Jun, Temperature 98.8 degrees Fahrenheit Jun, BMI 29.99 kg/m2 Jun, Oximetry 97 % Jun, Respiratory Rate 16 /min Jun, Blood pressure systolic 120 mm Hg Jun, Blood pressure diastolic 43 mm Hg Jun, MEDICATIONS Medication SIG (Take, Route, Notes Start Date End Date Status Frequency, Duration) Albuterol Sulfate HFA 1 puff as needed Oct, Active 108 (90 Base) MCG/ACT Inhalation every 6 hrs for 30 days MagOx 400 400 (241.3 Mg) 1 tablet with food Active MG Orally Once a day for 30 day(s) Lactulose 20 GM/30ML 15 ml Orally Once a Active day for 30 Gabapentin 100 MG 1 capsule Orally Once Jan, Active a day for 30 day(s) Pantoprazole Sodium 40 1 tablet Orally Once a Active MG day for 30 day(s) Triamcinolone Acetonide 1 application Jan, Not-Taking 0.1 % Externally Twice a day for 30 days Calcitriol 0.5 MCG 1 capsule Orally Once Active a day for 30 day(s) Cimetidine 200 MG 1 tablet as needed Active Orally Once a day Folic Acid 0.8 MG 1 tablet Orally Once a Active day Xifaxan 550 MG 1 tablet Orally Twice Active a day for 30 day(s) PROCEDURES No Information RESULTS No Results REASON FOR VISIT 3 month f/u ([phone]) MEDICAL (GENERAL) HISTORY Type Description Date Medical [...] STATUS No Information ASSESSMENTS Encounter Date Diagnosis Assessment Notes Treatment Notes Treatm ent Clinical Notes Jun, ARAUZ (nonalcoholic continue meds asnd steatohepatitis) instructions from (ICD-10 - K75.81) transplant tea m stay home avoid being around others Jun, GERD without med as directed esophagitis (ICD-10 - K21.9) PLAN OF TREATMENT Treatment Notes Assessment Notes Clinical Notes ARAUZ (nonalcoholic steatohepatitis) continue meds asnd instr uctions from transplant teamstay home avoid being around others GERD without esophagitis med as directed Next Appt Details 6 Months Reason: Provider Name:Mitzyangeles English, 2021-01-17 10 :40:00 AM, [address], [address], [place], [address], Insurance Providers Payer Name Payer Payer Insured Patient Coverage Coverage End Address Phone Name Relationship to Start Date Ramirez e Insured AET[employer] [phone] Irma Christian self MEDICARE PPO [id number] [address]
--- OUTSIDE RECORDS SUMMARY | 2020-07-31 07:38 | XMS REPORT | Continuity of Care Document ---
:[address] [facility] t Address [address] [place] [address] Care Team Providers Name Role Phone Nahun Leonard MD Primary Care Physician Marcus ESPINOSA Attending Clinician Unavailable Mayank ESPINOSA, R Attending Clinician Unavailable Rl Attending Clinician Unavailable Nhi Montgomery MD Attending Clinician Baltazar Hernandez Attending Clinician Unavailable Alfonso Attending [...] Holli plunkett AETNA - [id number] [address] [facility] MEDICARE MGD 00:00:00 - Medical CAREAETNA Center MEDICARE HMO POS [id number] [address] Problems Condition Condition Condition Status Onset Resolution Last Treating Co mments Source Name Details Category Date Date Treatment Clinician Date Awaiting Awaiting Disease Active 2019-[facility] - transplant transplant 00:00: Me dical status status 00 Center Acute Acute Disease Active [facility] liver liver 6-19 [facility] - failure failure 00:00: Medical 00 [facility] Elevated Elevated Disease Active [facility] serum serum 6-16 [facility] - creatinine creatinine 00:00: Me dical 00 Center Other Other Disease Active [facility] ascites ascites 6-16 [facility] - 00:00: Medical 00 [facility] Cirrhosis Cirrhosis Disease Active 2015-07 Last [facility] [...] 2015-[address] hypertensi hypertensi 09-01 Ashlyn Miramonteskes - on on 00:00: t & [...] Allergy 2 [facility] - 00:00: Medical 00 [facility] Levoflox Drug Active Other (See 2015-[address] acin Intolera Comments) 09-01 and [facility] - nce 00:00: diarrhea Medical 00 Center Sulfa Drug Active Rash 2015-[address] [facility] [address] (Sulfona Allergy 09-01 [facility] - mide 00:00: Medical Antibiot 00 Center ics) Tetracyc Drug Active Hives 2015-[address] [facility] lines Allergy 09-01 [facility] - 00:00: Medical 00 [facility] Tetracyc Adverse Active hives [facility] line HCl Reaction [facility] Levaquin Adverse Active vomiting/jocy C HI [facility] Reaction rrhea [facility] Erythrom Adverse Active vomiting/jocy [facility] Family History Family Member Diagnosis Comments Start Date Stop Date Source Natural brother Diabetes [facility] Natural brother Hypertension [facility] Natural brother Arthritis [facility] Natural brother COPD [facility] Natural father Diabetes [facility] Natural father Heart disease [facility] Natural mother Diabetes [facility] Natural mother Heart disease [facility] Natural sister Cancer [facility] Social History Social Habit Start Date Stop Date Quantity Comments Source Sex Assigned At [facility] Tobacco use and 2020-04-11 2020-04-11 Never used [facility] - exposure 00:00:00 00:00:00 [facility] Alcohol intake 2020-04-11 2020-04-11 Current drinker [facility] Holli Arteaga - 00:00:00 00:00:00 of alcohol [facility] (finding) Alcohol Comment 2016-07-01 2016-07-01 social last drink LETTY Medina - 00:00:00 00:00:00 06/15/16 [facility] Smoking Status Start Date Stop Date Source Former smoker 2020-04-11 00:00:00 2020-04-11 00:00:00 [facility] Medications Ordered Filled Start Stop Current Ordering Indication Dosage Frequency Signature Comments Components Source Medication Medication Date Date Medication? Clinician (SIG) Name Name ergocalcife 2019-07- Yes Vitamin D 95445L Q7D Take [address] [facility] [address] rol 18 18 deficiency capsule [facility] - (ERGOCALCIF 00:00: 23:59 (50,000 Me dical MRAIN) 1,250 00 :00 Units Center mcg (50,000 total) by unit) mouth once capsule a week. spironolact 2020-0 Yes 25mg QD Take [address] one 9-15 by mouth [facility] - (ALDACTONE) 09:45: daily. Medi steven 25 MG 26 Center tablet magnesium 2020-0 Yes Magnesium 400mg QD Take [address] [facility] oxide 9-15 deficiency tablet [facility] - (MAG-OX) 00:00: (400 mg Medica l 400 mg 00 total) by [facility] (241.3 mg mouth magnesium) daily. tablet calcitrioL 2019-0 Yes Cirrhosis .5ug QD Take [address] (ROCALTROL) 9-15 of liver capsule L ukes - 0.5 MCG 00:00: without (0.5 mcg Med ical capsule 00 ascites, total) by [facility] ter unspecified mouth hepatic daily. cirrhosis type (HCC) folic acid 2020- No Cirrhosis 1mg QD Take [address] (FOLVITE) 1 -15 09-15 of liver tablet (1 [facility] - MG tablet 00:00: 23:59 without mg total) Medical 00 :00 ascites, by mouth Center unspecified daily. hepatic cirrhosis type (HCC) ergocalcife 2019- 2020- No Vitamin D 06744T Q7D Take [address] rol 9 12-18 deficiency capsule [facility] - (ERGOCALCIF 00:00: [...] 2 (two) times daily. ergocalcife 2019-2019- No [id number] Q7D Take [address] rol [...] 25 MG 24 :00 Center tablet calcitrioL 0 2020- No .5ug QD Take 0.[address] (ROCALTROL) 01-25 mcg by [facility]ukes - 0.5 MCG 16:16: 00:00 mouth Medical capsule 08 :00 daily. Center rifAXIMin Yes 550mg Q.5D Take 1 [facility] t 550 mg Tab 01-25 tablet [facility] - 00:00: (550 mg Medical 00 total) by Center mouth 2 (two) times daily. lactulose 2019-0 Yes 20g Q.[id number] Take [address] (CHRONULAC) 01-25 [id number] mLs (20 g [facility] - 20 gram/30 00:00: 3D total) by Fl dical mL solution 00 mouth 3 Cente [...] magnesium) daily. tablet midodrine 2020- No 2.5mg Q.[id number] Take [address] (PROAMATINE 01-25 [id number] tablet [facility] - ) 2.5 MG 00:00: [...] [facility] Sulfate HFA Sulfate HFA 4-09 Remer needed [facility] - [facility] Cimetidine Cimetidine Yes Mitzy [address] Remer as needed [facility] Calcitriol Calcitriol Yes Mitzy [address] [facility]er [facility] Lactulose Lactulose Yes Mitzy [address] Rem[facility] Xifaxan Xifaxan Yes Mtizy [address] [facility] Folic Acid Folic Acid Yes Mitzy [address] [facility] Spironolact Spironolact Yes Mitzy [address] one one Remer [facility] Vitamin D2 Vitamin D2 Yes Mitzy [address] Remer [facility] MagOx 400 MagOx 400 Yes Mitzy [address] Remer with food [facility] Tramadol Tramadol Yes Mitzy [address] HCl HCl Remer as needed [facility] Midodrine Midodrine Yes Mitzy [address] HCl HCl Remer [facility] Pantoprazol Pantoprazol Yes Mitzy [address] e Sodium e Sodium Remer mixed with Lukes - apple Memoria juice or l applesauce [facility] Immunizations Ordered Filled Immunization Date Status Comments [facility] e Immunization Name Name Hepatitis A (adult) Hepatitis A (adult) 2020-02-[address] [facility] - 00:[facility]00 [facility] Hepatitis B (adult) Hepatitis B (adult) 2020-02-[address] [facility] - 00:00:00 [facility] Vital Signs Vital Name Observation Time Observation Value Comments Source Systolic blood 2020-04-11 09:39:00 104 mm[Hg] [facility] Diastolic blood 2020-04-11 09:39:00 43 mm[Hg] [facility] S [facility] Heart rate 2020-04-11 09:39:00 85 /min [facility] Body temperature 2020-04-11 09:39:00 36.28 Shaneka [facility] Respiratory rate 2020-04-11 09:39:00 18 /min [facility] Body height 2020-04-11 09:39:00 162.6 cm [facility] Body weight 2020-04-11 09:39:00 84.959 kg [facility] BMI 2020-04-11 09:39:00 32.15 kg/m2 [facility] Oxygen saturation in 2020-04-11 09:39:00 95 /min [facility] - Arterial blood by Medical Ce nter Pulse oximetry Procedures Procedure Date / Time Performing Clinician Source Performed PROTHROMBIN TIME/INR 2020-07-26 16:15:00 Kristofer Montgomery [facility] COMPREHENSIVE METABOLIC 2020-07-26 16:15:00 Kristofer Montgomery [facility] CBC W/PLT COUNT & AUTO 2020-07-26 16:15:[address] [facility] BILIRUBIN, DIRECT 2020-07-26 16:15:00 Kristofer Montgomery [facility] PROTHROMBIN TIME/INR 2020-07-17 11:33:00 Kristofer Montgomery [facility] COMPREHENSIVE METABOLIC 2020-07-17 11:33:00 Kristofer Montgomery [facility] CBC W/PLT COUNT & AUTO 2020-07-17 11:33:[address] [facility] BILIRUBIN, DIRECT 2020-07-17 11:33:00 Kristofer Montgomery [facility] PROTHROMBIN TIME/INR 2020-07-11 11:39:00 Kristofer Montgomery [facility] COMPREHENSIVE METABOLIC 2020-07-11 11:39:00 Kristofer Montgomery [facility] CBC W/PLT COUNT & AUTO 2020-07-11 11:39:[address] [facility] BILIRUBIN, DIRECT 2020-07-11 11:39:00 Kristofer Montgomery [facility] PROTHROMBIN TIME/INR 2020-06-13 12:36:00 Kristofer Montgomery [facility] COMPREHENSIVE METABOLIC 2020-06-13 12:36:00 AmericaKristofer [facility] CBC W/PLT COUNT & AUTO 2020-06-13 12:36:[address] [facility] BILIRUBIN, DIRECT 2020-06-13 12:36:00 AmericaKristofer [facility] PROTHROMBIN TIME/INR 2020-05-17 13:41:00 AmericaKristofer [facility] COMPREHENSIVE METABOLIC 2020-05-17 13:41:00 AmericaKristofer [facility] CBC W/PLT COUNT & AUTO 2020-05-17 13:41:[address] [facility] BILIRUBIN, DIRECT 2020-05-17 13:41:00 AmericaKristofer [facility] PROTHROMBIN TIME/INR 2020-05-09 12:29:00 Kristofer Montgomery [facility] COMPREHENSIVE METABOLIC 2020-05-09 12:29:00 AmericaKristofer [facility] CBC W/PLT COUNT & AUTO 2020-05-09 12:29:[address] [facility] BILIRUBIN, DIRECT 2020-05-09 12:29:00 AmericaKristofer theodore [facility] PROTHROMBIN TIME/INR 2020-05-02 13:25:00 Kristofer Montgomery [facility] COMPREHENSIVE METABOLIC 2020-05-02 13:25:00 AmericaKristofer theodore [facility] CBC W/PLT COUNT & AUTO 2020-05-02 13:25:[address] [facility] BILIRUBIN, DIRECT 2020-05-02 13:25:00 AmericaKristofer theodore [facility] PLATELET ESTIMATION 2020-05-02 13:25:00 AmericaKristofer [facility] PROTHROMBIN TIME/INR 2020-04-25 13:13:00 AmericaKristofer [facility] 2020-04-25 13:13:00 AmericaKristofer theodore [facility] CBC W/PLT COUNT & AUTO 2020-04-25 13:13:[address] [facility] BILIRUBIN, DIRECT 2020-04-25 13:13:00 Kristofer Montgomery [facility] PLATELET ESTIMATION 2020-04-25 13:13:00 Kristofer Montgomery [facility] PROTHROMBIN TIME/INR 2020-04-18 08:56:00 Kristofer Montgomery [facility] 2020-04-18 08:56:00 Kristofer Montgomery [facility] CBC W/PLT COUNT & AUTO 2020-04-18 08:56:[address] [facility] BILIRUBIN, DIRECT 2020-04-18 08:56:00 Kristofer Montgomery [facility] XR DXA BONE DENSITY STUDY 2020-04-11 11:51:00 Kristofer Montgomery I [facility] ALPHA FETOPROTEIN (AFP), 2020-04-11 11:13:[address] [facility] BILIRUBIN, DIRECT 2020-04-11 11:13:00 Sia Riley [facility] METABOLIC 2020-04-11 11:13:00 Sia Riley [facility] PROTHROMBIN TIME/INR 2020-04-11 11:13:00 Sia Riley [facility] CBC W/PLT COUNT & AUTO 2020-04-11 11:13:00 Sia Riley [facility] PROTHROMBIN TIME/INR 2020-03-10 08:03:00 Kristofer Montgomery [facility] METABOLIC 2020-03-10 08:03:00 Kristofer Montgomery [facility] CBC W/PLT COUNT & AUTO 2020-03-10 08:03:[address] [facility] BILIRUBIN, DIRECT 2020-03-10 08:03:00 Kristofer Montgomery [facility] MISCELLANEOUS LAB ORDER 2020-02-15 12:29:00 AmericaKristofer theodore [facility] MAGNESIUM 2020-02-15 12:29:00 AmericaKristofer theodore [facility] BILIRUBIN, DIRECT 2020-02-15 12:29:00 Kristofer Montgomery [facility] COMPREHENSIVE METABOLIC 2020-02-15 12:29:00 AmericaKristofer theodore [facility] PROTHROMBIN TIME/INR 2020-02-15 12:29:00 AmericaKristofer [facility] CBC W/PLT COUNT & AUTO 2020-02-15 12:29:[address] [facility] PROTHROMBIN TIME/INR 2020-02-08 10:23:00 AmericaKristofer theodore [facility] COMPREHENSIVE METABOLIC 2020-02-08 10:23:00 AmericaKristofer [facility] CBC W/PLT COUNT & AUTO 2020-02-08 10:23:[address] [facility] BILIRUBIN, DIRECT 2020-02-08 10:23:00 AmericaKristofer [facility] PLATELET ESTIMATION 2020-02-08 10:23:00 AmericaKristofer [facility] PROTHROMBIN TIME/INR 2020-02-01 09:25:00 Kristofer Montgomery [facility] COMPREHENSIVE METABOLIC 2020-02-01 09:25:00 AmericaKristofer theodore [facility] CBC W/PLT COUNT & AUTO 2020-02-01 09:25:[address] [facility] BILIRUBIN, DIRECT 2020-02-01 09:25:00 AmericaKristofer theodore [facility] RHYTHM STRIP - SCAN 2020-01-27 10:00:12 Provider, Default [facility] CARDIAC CATH REPORT - SCAN 2020-01-27 10:[facility] LEUKO-REDUCED 2020-01-26 22:41:07 Miguel Angel, Kaylin [facility] PLATELETS [facility] METANEPHRINES 2020-01-26 14:51:[address] [facility] Curtis [facility] HEPATIC FUNCTION PANEL 2020-01-26 03:50:00 [facility] PROTHROMBIN TIME/INR 2020-01-26 03:50:00 [facility] CALCIUM, IONIZED 2020-01-26 03:50:00 [facility] COMPREHENSIVE METABOLIC 2020-01-26 03:50:00 [facility] PHOSPHORUS 2020-01-26 03:50:00 [facility] MAGNESIUM 2020-01-26 03:50:00 [facility] W/[facility]T COUNT & AUTO 2020-01-26 03:50:00 Florian Kinney [facility] HEPATIC FUNCTION PANEL 2020-01-25 03:47:00 [facility] PROTHROMBIN TIME/INR 2020-01-25 03:47:00 [facility] BASIC METABOLIC PANEL (7) 2020-01-25 03:47:00 Juana [facility] MAGNESIUM 2020-01-25 03:47:00 Juana [facility] CBC W/PLT COUNT & AUTO 2020-01-25 03:47:00 Florian Kinney [facility] (CELLAVISION MANUAL DIFF) 2020-01-25 03:47:00 Florian Kinney [facility] TRANSFUSION SERVICE REPORT 2020-01-24 18:00:13 [facility] PULMONARY FUNCTION - SCAN 2020-01-24 13:10:09 [facility] SPIROMETRY 2020-01-24 10:41:00 Mariana Lin [facility] DLCO (SINGLE BREATH 2020-01-24 10:41:00 Byron Mariana [facility] - DIFFUSION) [facility] LUNG VOLUMES 2020-01-24 10:41:[address] [facility](FOR LUNG 2020-01-24 10:20:00 Delia Mariana [facility] - TRANSPLANT ONLY) [facility] HEPATIC FUNCTION PANEL 2020-01-24 03:57:00 [facility] PROTHROMBIN TIME/INR 2020-01-24 03:57:00 Blanchard [facility] CALCIUM, IONIZED 2020-01-24 03:57:00 Kermit Nicole [facility] PHOSPHORUS 2020-01-24 03:57:00 Kermit Nicole [facility] BASIC METABOLIC PANEL (7) 2020-01-24 03:57:00 Leena Arias [facility] MAGNESIUM 2020-01-24 03:57:00 Leena Arias [facility] CBC W/PLT COUNT & AUTO 2020-01-24 03:57:[address] [facility] PREPARE LEUKO-REDUCED RBC 2020-01-23 23:54:00 Vitor Orozco [facility] TRANSFUSION SERVICE REPORT 2020-01-23 18:00:37 ProviderBozena [facility] - - SCAN Scanning [facility] HEPATIC FUNCTION PANEL 2020-01-23 04:32:00 [facility] PROTHROMBIN TIME/INR 2020-01-23 04:32:00 Blanchard [facility] B-TYPE NATRIURETIC FACTOR 2020-01-23 04:32:[address] [facility] (BNP) [facility] CALCIUM, IONIZED 2020-01-23 04:32:00 Kermit Nicole [facility] PHOSPHORUS 2020-01-23 04:32:00 Kermit Nicole [facility] BASIC METABOLIC PANEL (7) 2020-01-23 04:32:00 Leena Arias [facility] MAGNESIUM 2020-01-23 04:32:00 Leena Arias [facility] CBC W/PLT COUNT & AUTO 2020-01-23 04:32:00 Juana [facility] (CELLAVISION MANUAL DIFF) 2020-01-23 04:32:00 Juana [facility] PREPARE LEUKO-REDUCED 2020-01-22 23:54:00 Miguel Angel, Kaylin [facility] PLATELETS [facility] TRANSFUSION SERVICE REPORT 2020-01-22 18:01:00 Provider, Default [facility] TRANSFUSE LEUKO-REDUCED RED 2020-01-22 14:30:53 NorcaturVitor [facility] - BLOOD CELLS [facility] CORT[facility]OL 2020-01-22 08:23:00 IsmaMe sedrickhwish [facility] CALCIUM, IONIZED 2020-01-22 04:35:00 Russ Ha [facility] HEPATIC FUNCTION PANEL 2020-01-22 04:35:00 [facility] BASIC METABOLIC PANEL (7) 2020-01-22 04:35:00 Juana [facility] MAGNESIUM 2020-01-22 04:35:00 Juana [facility] CBC W/PLT COUNT & AUTO 2020-01-22 04:35:00 Juana [facility] (CELLAVISION MANUAL DIFF) 2020-01-22 04:35:00 Juana [facility] PROTHROMBIN TIME/INR 2020-01-22 04:34:00 Galdino [facility] DIRECT [facility]HG (KRISTI)/DIRECT 2020-01-22 04:34:00 Gregory, [facility] ABORH, MANUAL 2020-01-22 04:34:00 Gregory, [facility] TRANSFUSION SERVICE REPORT 2020-01-21 18:00:48 Provider, Default [facility] BODY FLUID CULTURE + GRAM 2020-01-21 16:54:00 Miguel Angel, Kaylin [facility] BODY FLUID CELL COUNT WITH 2020-01-21 16:54:00 Miguel Angel, Kaylin C [facility] US PARACENTESIS 2020-01-21 16:40:00 Blanchard [facility] MISCELLANEOUS LAB ORDER 2020-01-21 09:31:00 Isbrand[facility]rick [facility] HEPATIC FUNCTION PANEL 2020-01-21 09:31:00 [facility] PROTHROMBIN TIME/INR 2020-01-21 09:31:00 Blanchard [facility] COMPREHENSIVE METABOLIC 2020-01-21 09:31:00 [facility] PHOSPHORUS 2020-01-21 09:31:00 Leland [facility] MAGNESIUM 2020-01-21 09:31:00 Leena Arias [facility] CORTISOL 2020-01-21 09:31:00 Issrikanth [facility] RETICULOCYTE COUNT 2020-01-21 09:31:00 Oumou Jenkins [facility] PERIPHERAL BLOOD SMEAR - 2020-01-21 09:31:00 Miguel Angel Kaylin [facility] CBC W/PLT COUNT & AUTO 2020-01-21 09:31:[address] [facility] XR CHEST 1 VIEW 2020-01-21 09:10:00 [facility] METANEPHRINES, 24 HOUR 2020-01-20 22:51:00 [facility] [place] URINE [facility] CATECHOLAMINES, 2020-01-20 22:51:00 [facility] - FRACTIONATED, 24HR URINE Medical Center TYPE AND SCREEN, AUTOMATED 2020-01-20 20:39:00 Miguel Angel, Kaylin [facility] XR CHEST 1 VIEW 2020-01-20 20:28:00 [facility] PORTABLE/BEDSIDE [facility] TRANSFUSION SERVICE REPORT 2020-01-20 18:01:30 Bozena Lopes [facility] - - SCAN Scanning [facility] MR ABDOMEN WITHOUT IV 2020-01-20 17:54:00 [facility] CONTRAST [facility] HEPATIC FUNCTION PANEL 2020-01-20 04:10:00 [facility] PROTHROMBIN TIME/INR 2020-01-20 04:10:00 [facility] CALCIUM, IONIZED 2020-01-20 04:10:00 Leland [facility] COMPREHENSIVE METABOLIC 2020-01-20 04:10:00 Leland [facility] PHOSPHORUS 2020-01-20 04:10:00 Leland [facility] MAGNESIUM 2020-01-20 04:10:00 AriasLeena [facility] CBC W/PLT COUNT & AUTO 2020-01-20 04:10:00 Leland [facility] (CELLAVISION MANUAL DIFF) 2020-01-20 04:10:00 [facility] LEUKO-REDUCED RBC 2020-01-19 23:54:00 Miguel Angel Kaylin [facility] URINALYSIS W/ MICROSCOPIC 2020-01-19 23:19:00 Russ Ha [facility] SODIUM, RANDOM URINE 2020-01-19 23:19:00 Leland [facility] BLOOD CULTURE 2020-01-19 21:45:00 Galdino [facility] BLOOD CULTURE 2020-01-19 21:44:00 [facility] [id number] 2020-01-19 21:43:00 Kristofer Montgomery [facility] TRANSFUSION SERVICE REPORT 2020-01-19 18:01:08 ProviderBozena [facility] - - SCAN Scanning [facility] R & L CATH / CORONARY 2020-01-19 16:30:00 Brian Browning [facility] - ANGIOS (+/- LV) [facility] BLOOD GAS, ARTERIAL 2020-01-19 15:44:00 Kristofer Montgomery [facility] CRYPTOCOCCAL ANTIGEN 2020-01-19 15:04:00 Kristofer Montgomery [facility] MUMPS ANTIBODY, IGG 2020-01-19 15:04:00 Kristofer Montgomery [facility] RUBELLA ANTIBODY, IGG 2020-01-19 15:04:00 Kristofer Montgomery [facility] RUBEOLA ANTIBODY IGG 2020-01-19 15:04:00 Kristofer Montgomery [facility] VARICELLA ZOSTER ANTIBODY, 2020-01-19 15:04:00 Kristofer Montgomery [facility] PROTHROMBIN TIME/INR 2020-01-19 11:00:00 [facility] US BREAST BILATERAL 2020-01-19 09:10:00 Kristofer Montgomery [facility] HEPATIC FUNCTION PANEL 2020-01-19 04:11:00 [facility] CALCIUM, IONIZED 2020-01-19 04:11:00 [facility] COMPREHENSIVE METABOLIC 2020-01-19 04:11:00 [facility] PHOSPHORUS 2020-01-19 04:11:00 [facility] B-TYPE NATRIURETIC FACTOR 2020-01-19 04:11:00 [facility] (BNP) [facility] ALDOSTERONE 2020-01-19 04:11:00 [facility] RENIN, PLASMA 2020-01-19 04:11:00 [facility] METANEPHRINES 2020-01-19 04:11:00 [facility] MAGNESIUM 2020-01-19 04:11:00 [facility] CBC W/PLT COUNT & AUTO 2020-01-19 04:11:00 [facility] CT ABDOMEN WITHOUT IV 2020-01-19 00:40:00 [facility] CONTRAST [facility] US RENAL COMPLETE 2020-01-19 00:20:00 [place] PREPARE LEUKO-REDUCED 2020-01-18 23:54:00 [facility]ana [facility] PLATELETS [facility] URINALYSIS W/ MICROSCOPIC 2020-01-18 20:49:00 Leland [facility] SODIUM, RANDOM URINE 2020-01-18 20:49:00 [facility] PROTEIN, RANDOM URINE 2020-01-18 20:49:00 [facility] CREATININE, RANDOM URINE 2020-01-18 20:49:00 Leland [facility] EOSINOPHIL SMEAR, URINE 2020-01-18 20:49:00 [facility] TRANSFUSION SERVICE REPORT 2020-01-18 18:31:51 [facility] [facility] TRANSFUSE LEUKO-REDUCED RED 2020-01-18 13:21:26 Miguel Angel [facility] BLOOD CELLS [facility] NM MYOCARDIAL PERFUSION 2020-01-18 09:20:00 [facility]ESS[facility] Medical C enter TREADMILL 2020-01-18 08:57:35 Unknown, H[facility]7 [facility](NON-NUCLEAR Medical Ce nter TREADMILL) ECG 12-LEAD 2020-01-18 08:46:42 Unknown, [facility] BASIC METABOLIC PANEL (7) 2020-01-18 06:10:00 Juana [facility] MAGNESIUM 2020-01-18 06:10:00 Juana [facility] T SPOT TB 2020-01-18 06:10:00 Miguel Angel [facility] HEPATIC FUNCTION PANEL 2020-01-18 06:10:00 Roscoe Ahmadi [facility] CBC W/PLT COUNT & AUTO 2020-01-18 06:10:00 Juana [facility] DIFFERENTIAL [facility] (CELLAVISION MANUAL DIFF) 2020-01-18 06:10:00 Juana [facility] ECG 12-LEAD 2020-01-17 11:05:03 [facility] REPORT OF PROCEDURE - 2020-01-17 09:11:05 George, [facility] REPORT OF PROCEDURE - 2020-01-17 08:39:23 Doris [facility] TISSUE EXAM 2020-01-17 08:15:00 [facility]is [facility] TRANSFUSE LEUKO-REDUCED 2020-01-17 08:04:58 Juana [facility] UPPER ENDOSCOPY,BIOPSY 2020-01-17 07:55:00 Doris [facility] COLONOSCOPY 2020-01-17 07:55:00 [facility] PROTHROMBIN TIME/INR 2020-01-17 03:56:00 Mary Roper [facility] BASIC METABOLIC PANEL (7) 2020-01-17 03:56:00 [facility]ana [facility] MAGNESIUM 2020-01-17 03:56:00 Juana [facility] CBC W/PLT COUNT & AUTO 2020-01-17 03:56:00 Juana [facility] (CELLAVISION MANUAL DIFF) 2020-01-17 03:56:00 Juana [facility] TRANSFUSION SERVICE REPORT 2020-01-16 18:00:27 Bozena Lopes [facility] BLOOD CULTURE 2020-01-16 12:25:00 Shady Gonzáles [facility] LACTATE DEHYDROGENASE (LDH) 2020-01-16 12:24:00 Juan Minor [facility] RETICULOCYTE COUNT 2020-01-16 12:23:00 Juan Minor [facility] BLOOD CULTURE 2020-01-16 11:25:00 Shady Gonzáles [facility] HIV-1 ANTIGEN WITH HIV-1/2 2020-01-16 11:25:00 Shady Gonzáles [facility] VITAMIN B12 AND FOLATE 2020-01-16 11:25:00 Iván Juan [facility] HAPTOGLOBIN 2020-01-16 11:25:00 Iván, Juan [facility] US ABDOMINAL WITH DOPPLER 2020-01-16 06:30:00 Shady Gonzáles [facility] PROTHROMBIN TIME/INR 2020-01-16 03:38:[address] [facility] HEPATIC FUNCTION PANEL 2020-01-16 03:38:[address] [facility] BASIC METABOLIC PANEL (7) 2020-01-16 03:38:00 Leena Arias CH I [facility] MAGNESIUM 2020-01-16 03:38:00 Juana [facility] CBC W/PLT COUNT & AUTO 2020-01-16 03:38:00 Arias [facility] DRUG SCREEN, URINE, 2020-01-15 21:52:00 Shady Gonzáles [facility] TRANSPLANT [facility] BLOOD TYPING, AUTOMATED 2020-01-15 18:16:00 Shady Gonzáles [facility] CT CHEST WITHOUT IV 2020-01-15 17:54:00 Shady Gonzáles [facility] XR CHEST 2 VIEWS 2020-01-15 16:57:00 Shady Gonzáles [facility] XR MANDIBLE 4 VIEWS MIN 2020-01-15 16:39:00 Shady Gonzáles [facility] VITAMIN D, 25-HYDROXY 2020-01-15 16:17:00 Shady Gonzáles [facility] COMPREHENSIVE METABOLIC 2020-01-15 16:17:[address] [facility] BILIRUBIN, DIRECT 2020-01-15 16:17:00 Shady Gonzáles [facility] CALCIUM, IONIZED 2020-01-15 16:17:00 Shady Gonzáles [facility] ZINC 2020-01-15 16:17:00 Shady Gonzáles [facility] ANTI-NUCLEAR ANTIBODY (REILLY) 2020-01-15 16:17:00 [facility] (SMOOTH MUSCLE) 2020-01-15 16:17:[address] [facility] ANTIBODY, IGG [facility] MITOCHONDRIA M2 ANTIBODY 2020-01-15 16:17:[address] [facility] (IGG) [facility] IRON, TIBC, % SAT. (WITHOUT 2020-01-15 16:17:[address] [facility] FERRITIN) [facility] FERRITIN 2020-01-15 16:17:00 Shady Gonzáles [facility] TRANSFERRIN 2020-01-15 16:17:00 Shady Gonzáles [facility] EENJU-3-IDIUETSTRED\\, SERUM 2020-01-15 16:17:00 Shady Gonzáles [facility] CERULOPLASMIN 2020-01-15 16:17:00 Shady Gonzáles [facility] ALPHA FETOPROTEIN (AFP), 2020-01-15 16:17:[address] [facility] TUMOR MARKER [facility] CARCINOEMBRYONIC ANTIGEN 2020-01-15 16:17:[address] [facility] (CEA) [facility] CARBOHYDRATE ANTIGEN 19-9 2020-01-15 16:17:[address] [facility] (CA 19-9) [facility] HEMOGLOBIN A1C 2020-01-15 16:17:00 Shady Gonzáles [facility] TSH 2020-01-15 16:17:00 Shady Gonzáles [facility] T3 2020-01-15 16:17:00 Shady Gonzáles [facility] T4 2020-01-15 16:17:00 Shady Gonzáles [facility] ETHANOL 2020-01-15 16:17:00 Shady Gonzáles [facility] FIBRINOGEN 2020-01-15 16:17:00 Shady Gonzáles [facility] PROTHROMBIN TIME/INR 2020-01-15 16:17:00 Shady Gonzáles [facility] APTT 2020-01-15 16:17:00 [facility]TIBODY, IGM 2020-01-15 16:17:00 EliecerShady davidson [facility] HEPATITIS B SURFACE ANTIGEN 2020-01-15 16:17:00 EliecerShady davidson [facility] HEPATITIS B SURFACE 2020-01-15 16:17:00 EliecerShady davidson [facility] ANTIBODY [facility] HEPATITIS B CORE ANTIBODY, 2020-01-15 16:17:[address] [facility] TOTAL [facility] HEPATITIS B CORE ANTIBODY, 2020-01-15 16:17:00 EliecerShady davidson [facility] HEPATITIS C ANTIBODY 2020-01-15 16:17:00 Shady Gonzáles [facility] RPR 2020-01-15 16:17:00 Shady Gonzáles [facility] CYTOMEGALOVIRUS ANTIBODY, 2020-01-15 16:17:[address] [facility] IGG [facility] CYTOMEGALOVIRUS ANTIBODY, 2020-01-15 16:17:00 EliecerShady davidson [facility] EBV ANTIBODY, IGM 2020-01-15 16:17:00 Shady Gonzáles [facility] TYPE AND SCREEN, AUTOMATED 2020-01-15 16:17:00 Shady Gonzáles [facility] 2D ECHO W/ DOPPLER 2020-01-15 14:45:25 Ren Hernandez [facility] (CW/PW/COLOR) [facility] CAROTID DOPPLER BILATERAL 2020-01-15 14:41:00 Shady Gonzáles [facility] SODIUM, RANDOM URINE 2020-01-15 12:46:00 Graciela Stone [facility] CREATININE, RANDOM URINE 2020-01-15 12:46:[address] [facility] AMMONIA 2020-01-15 08:32:00 rGaciela Stone [facility] HEPATITIS PANEL, ACUTE 2020-01-15 08:32:00 Graciela Stone [facility] BASIC METABOLIC PANEL (7) 2020-01-15 03:56:00 Graciela Stone [facility] PROTHROMBIN TIME/INR 2020-01-15 03:56:[address] [facility] HEPATIC FUNCTION PANEL 2020-01-15 03:56:00 [facility] MAGNESIUM 2020-01-15 03:56:00 [facility]IC ACID 2020-01-15 03:56:00 Eliecer [facility] GAMMA GLUTAMYL TRANSFERASE 2020-01-15 03:56:00 Eliecer [facility] (GGT) [facility] PHOSPHORUS 2020-01-15 03:56:00 Eliecer [facility] LIPID PANEL 2020-01-15 03:56:00 Eliecer [facility] CBC W/PLT COUNT & AUTO 2020-01-15 03:56:00 [facility] (CELL[facility] MANUAL DIFF) 2020-01-15 03:56:00 Graciela Stone [facility] BASIC METABOLIC PANEL (7) 2020-01-14 21:59:00 Graciela Stone [facility] PROTHROMBIN TIME/INR 2020-01-14 21:59:00 Graciela Stone [facility] HEPATIC FUNCTION PANEL 2020-01-14 21:59:00 Ramone Graciela [facility] CBC W/PLT COUNT & AUTO 2020-01-14 21:59:00 Ramone [facility] SARS-COV2/RT-PCR ([facility] & 2020-01-14 19:28:00 Tameka Hunter I [facility] - REF LABS) [facility] BASIC METABOLIC PANEL (7) 2020-01-03 14:34:00 Kadie Larry CH I [facility] HEPATIC FUNCTION PANEL 2020-01-03 14:34:[address] [facility] PROTHROMBIN TIME/INR 2020-01-03 14:34:00 [facility] ALPHA FETOPROTEIN (AFP), 2020-01-03 14:34:00 [facility] - TUMOR MARKER [facility] CBC W/PLT COUNT & AUTO 2020-01-03 14:34:00 [facility] Holli carcamo [facility] DIFFERENTIAL [facility] Plan of Care Planned Activity Planned Date Details Comments Source Future Scheduled 2030-01-16 Screening for [facility] - Test 00:00:00 malignant neoplasm of [facility] colon (procedure) [code = 507229645] Future Scheduled 2020-07-[address] [facility] - Test 00:00:00 (12+) [code = Medical Center DEPRESSION SCREENING (12+)] Future Scheduled 2020-03-28 INFLUENZA VACCINE (#1) [facility]00 [code = INFLUENZA Medical Ce nter VACCINE (#1)] Future Scheduled 2020-02-26 [facility]ZA VACCINE [place] [facility] 00:00:00 [code = INFLUENZA VACCINE] Future Scheduled 2019-07-[address] [facility] - Test 00:00:00 WELLNESS (YEAR 2 or Medical Center FIRST YEAR if no IPPE) [code = MEDICARE ANNUAL WELLNESS (YEAR 2 or FIRST YEAR if no IPPE)] Future Scheduled 2019 65+ PNEUMOCOCCAL [place] [facility] Test 00:00:00 VACCINE (1 of 1 - [...] Future Scheduled 2004 COLONOSCOPY SCREENING [facility] 00:00:00 [code = COLONOSCOPY SCREENING] Future Scheduled 2004 SHINGLES VACCINES (#1) [place] [facility] Test 00:00:00 [code = SHINGLES VACCINES (#1)] Future Scheduled 1973 HEPATITIS B VACCINE ([address] [facility] Test 00:00:00 of 3 - Risk 3-dose Medical C enter series) [code = HEPATITIS B VACCINE (1 of 3 - Risk 3-dose series)] Future Scheduled 1970 COVID-19 VACCINE (#1) [facility] 00:00:00 [code = COVID-19 VACCINE (#1)] Future Scheduled [address] [facility] - Test 00:00:00 malignant neoplasm of Medica l Center breast (procedure) [code = 940497652] Encounters Start End Encounter Admission Attending Care Care Encounter Source Date/Time Date/Time Type Type Clinicians Facility Department ID 2020-07-19 2020-07-19 [id number] 2020-06-19 2020-06-19 [facility] [id number] [facility] 2020-06-16 2020-06-16 [facility] [id number] 2020-05-02 2020-05-02 [facility] [id number] [facility] 2020-04-19 2020-04-19 [facility] [id number] [facility] 2020-02-21 2020-02-21 [facility] [id number] 16:00[facility]00 16:00:00 [facility] Medicine l Medicine Outpati ent Clinics 2020-02-14 2020-02-14 [facility] [id number] 10:00:00 10:00:00 [facility] Medicine l Medicine Outpati ent Clinics 2020-02-03 2020-02-03 [facility] [id number] 11:48:00 11:48:00 [facility] Medicine l Medicine Outpati ent Clinics 2020-01-13 2020-01-13 [facility] [id number] 14:40:00 14:40:00 [facility] Medicine Outpati ent Clinics 2020-01-03 2020-01-03 Transition [place] [id number] 00:00:00 00:00:00 of Care Aye [place] [id number] [place] [id number] 2019-12-28 2019-12-31 [facility] Yahir Borden RUST [id number] 21:39:45 13:10:00 Encounter Jacklyn Lewis [id number] [place] [id number] [place] [id number] 2019-11-03 2019-11-03 [facility] [id number] 13:20:00 13:20:00 [facility] Medicine Outpati ent Clinics 2019-09-10 2019-09-10 [facility] [id number] 09:30:00 09:30:00 [facility] Medicine Outpati ent Clinics 2019-08-31 2019-08-31 [facility] [id number] 08:00:00 08:00:00 [facility] Medicine l Medicine Outpati ent Clinics 2019-08-24 2019-08-24 [facility] [id number] 10:41:00 10:41:00 [facility] l Medicine Outpati ent Clinics 2019-08-19 2019-08-19 [facility] [id number] 13:00:00 13:00:[address] [facility] l Medicine Outpati ent Clinics Results Test Description Test Time Test Comments Results Result Comments Source Comprehensive metabolic panel 2020-07-26 21:00:00 Test Item Value Reference Range Interpretation Comme nts Glucose (test code = 93 mg/dL 65-139 Non-fasting ) reference inter beatriz BUN (test code = 38 mg/dL 7-25 H 20101128) Creatinine (test code = 2.80 mg/dL 0.5-0.99 H For patients >49 years 20130920) of age, the ref erence limitfor Creati nine is approximately 1 3% higher for peopleident ified as -Marisela n. eGFR If NonAfricn Am 17 > OR = 60 L (test code = ) mL/min/1.73m2 eGFR If Africn Am (test 20 > OR = 60 L code = ) mL/min/1.73m2 BUN/Creatinine Ratio 14 6- 22 (calc) (test code = ) Sodium (test code = 136 mmol/L 135-247 2465982) Potassium, Serum (test 4.2 mmol/L 3.5-5.3 code = 20101213) Chloride (test code = 107 mmol/L 98-981 1382823) Carbon Dioxide, Total 21 mmol/L 20-32 (test code = ) Calcium, Serum (test 9.8 mg/dL 8.6-10.4 code = 20101125) Protein, Total, Serum 5.8 g/dL 6.1-8.1 L (test code = 20101202) Albumin (test code = 3.3 g/dL 3.6-5.1 L ) GLOBULIN (QUEST) (test 2.5 1.9- 3.7 g/dL code = 4421512) (calc) Albumin Globulin Ratio 1.3 1.0- 2.5 (calc) (test code = 1759-0) Bilirubin, Total (test 2.5 mg/dL 0.2-1.2 H code = 20101204) Alkaline Phosphatase, S 117 U/L 37-153 (test code = 6768-6) AST (SGOT) (test code = 29 U/L 10-35 20101208) ALT (SGPT) (test code = 11 U/L 6-29 ) VALENTE (test code = VALENTE) FASTING:NOFASTING: NO RAC (test code = RAC) Performing Organization Information: Site ID: [facility] Name: [facility] Lab Address: [address] [place] [phone] Director: Alonso Carrasco Lab Interpretation Abnormal (test code = 39304-2) [facility] [id number] 21:00:00 Test Item Value Reference Range Interpretation Comments Bilirubin, Total (test 2.5 mg/dL 0.2-1.2 H code = 5198809) Bilirubin, Direct (test 0.8 mg/dL < OR = 0.2 H code = 3044405) Bilirubin, Indirect 1.7 0.2- 1.2 mg/dL H (test code = 0960891) (calc) VALENTE (test code = VALENTE) FASTING:NOFASTING: NO RAC (test code = RAC) Performing Organization Information: Site ID: [facility] Name: [facility] Lab Address: [address] [place] [phone] Director: Alonso Carrasco Lab Interpretation Abnormal (test code = 86060-1) [facility] count + automated [id number] 21:00:00 Test Item Value Reference Interpretation Comments Range WBC (test code = 4.7 3.8- 10.8 ) Thousand/uL RBC (test code = 2.46 3.80- 5.10 L 789-8) Million/uL Hemoglobin (test 8.7 g/dL 11.7-15.5 L code = ) Hematocrit (test 25.1 % 35-45 L code = ) MCV (test code = 102.0 fL 80-100 H ) MCH (test code = 35.4 pg 27-33 H ) MCHC (test code = 34.7 g/dL 32-36 ) RDW (test code = 13.6 % 11-15 ) Platelets (test 63 140- 400 L Review of th e code = ) Thousand/uL peripheral s mear revealsdecrease d numbers of platelets. MPV (test code = 11.2 fL 7.5-12.5 0866752) # Neutros (test 2703 1,500 - 7,800 code = 8356063) cells/uL # Lymphs (test code 954 850- 3,900 = 731-0) cells/uL # Monos (test code 456 200- 950 = 9223484) cells/uL # Eos (test code = 559 15- 500 H 711-2) cells/uL # Baso (test code = 28 0- 200 704-7) cells/uL % Neutros (test 57.5 % code = ) % Lymphs (test code 20.3 % = 2717309) % Monos (test code 9.7 % = ) % Eos (test code = 11.9 % 20200215) % Baso (test code = 0.6 % 20200216) VALENTE (test code = FASTING:NOFASTING VALENTE) : NO RAC (test code = Performing RAC) Organization Information: Site ID: [facility] Name: [facility] Address: [address] [place] [address] Director: Alonso Carrasco Lab Interpretation Abnormal (test code = 53951-1) [facility]th[facility]bin time/[id number] 21:00:00 Test Item Value Reference Range Interpretation Comments INR (test code = 1.2 H Reference R von 2103456) 0.9-1.1Moderate - intensity Warfarin Therap y 2.0-3.0Higher-i n tensity Warfari n Therapy 3.0-4.0 PT (test code = 11.9 9.0- 11.5 sec H For additio nal ) information, please refer tohttp://educat i on.questdiagnos t Spiral Genetics/faq/FAQ 07 31(This link is being provided for informational/e d ucational purposes only.) VALENTE (test code = VALENTE) FASTING:NOFASTING: NO RAC (test code = RAC) Performing Organization Information: Site ID: A Name: [facility] Address: [address] [place] [phone] Director: Alonso Carrasco Lab Interpretation Abnormal (test code = 88974-6) [facility] HospitalPLATELET [id number] 18:02:00 Test Item Value Reference Range Interpretation Comments Platelet Estimate (test DECREASED ADEQUATE A code = 64793-3) VALENTE (test code = VALENTE) FASTING:NOFASTING: NO RAC (test code = RAC) Performing Organization Information: Site ID: JOSHUA [facility] Address: [address] [place] [phone] Director: Alonso Carrasco Lab Interpretation (test Abnormal code = 71463-5) [facility] HospitalBILIRUBIN, [id number] 15:57:00 Test Item Value Reference Range Interpretation Comments BILIRUBIN DIRECT (BEAKER) (test 1.9 mg/dL 0.1-0.5 H code = 706) [employer] ID - BSCOMPREHENSIVE METABOLIC [id number] 15:57:00 Test Item Value Reference Range Interpretation [...] S NOT APPLICABLE FOR DIALYSIS PATIEN TS. [employer] ID - BSSpecimen moderately ictericAlpha fetoprotein (AFP), tumor marker 2020-04-11 15:41:00 Test Item Value Reference Range Interpretation Comments Alpha-Fetoprotein (test code <2.0 <10.0 ng/mL = 1834-1) VALENTE (test code = VALENTE) [employer] Mechanic ID - BS Lab Interpretation (test Normal code = 72501-5) [facility]AL[facility] FETOPROTEIN (AFP), TUMOR [id number] 15:41:00 Test Item Value Reference Range Interpretation Comments ALPHA-FETOPROTEIN (BEAKER) (test code < ng/mL <10.0 = 1094) [employer] ID - BSRAD, BONE DENSITY [id number] 13:34:00Referring: Dr. Rowdy Zhang for Exam:->liver transplant waiting listFINAL REPORT Bone density study, 04/11/2020 Clinical History: Screening Bone mineral density measurementLumbar spine0.866 gm/lf3Elbqtnp neck0.714 gm/cm2 Standard deviation fromyoung adult population [...] [place] Verified Date/Time: 04/11/2020 13:34:32 Reading Location: [address] Mammo Reading Room XR dxa bone density [id number] 13:34:00 Interface, External Ris In - 04/11/2020 1:36 PM CDTFINAL REPORT Bone densitystudy, 04/11/2020 Clinical History: Screening Bone mineral density measurementLumbar spine0.866 gm/it9Yjwlkzm neck0.714 gm/cm2 Standard deviation from young adult [...] [place] Verified Date/Time: 04/11/2020 13:34:32 Reading Location: [address] Mammo Reading Room [facility]/[id number] 13:02:00 Test Item Value Reference Range Interpretation [...] heart valves.CBC with platelet count + automated [id number] 12:52:00 Test Item Value Reference Range Interpretation [...] K/CU MM L MPV (test code = 39210-7) 10.4 fL 9.4-12.3 nRBC (test code = [...] 2801) Lab Interpretation (test code = Abnormal 78844-7) [facility]/PLT COUNT & AUTO [id number] 12:52:00 Test Item Value Reference Range Interpretation [...] (BEAKER) (test code = 2801) MISCELLANEOUS LAB [id number] 12:14:00 Test Item Value Reference Range Interpretation Comments SCAN RESULT (test code = 9497920) Miscellaneous lab [id number] 12:14:00Scan ResultQUEST NON-INTERFACED LABCHI [facility] CenterMagnesium2020-07-21 13:17:00 Test Item Value Reference Range Interpretation Comments Magnesium (test code = 1.8 mg/dL 1.6-2.6 74988-9) VALENTE (test code = VALENTE) [employer] ID - LM Lab Interpretation (test Normal code = 87086-7) [facility] CenterMAGNESIUM2020-07-21 13:17:00 Test Item Value Reference Range Interpretation Comments MAGNESIUM (BEAKER) (test code = 1.8 mg/dL 1.6-2.6 627) [employer] ID - LMCOMPREHENSIVE METABOLIC [id number] 13:17:00 Test Item Value Reference Range Interpretation [...] S NOT APPLICABLE FOR DIALYSIS PATIEN TS. [employer] Equipment Mechanic ID - LMSpecimen moderately ictericBILIRUBIN, [id number] 13:17:00 Test Item Value Reference Range Interpretation Comments BILIRUBIN DIRECT (BEAKER) (test 2.5 mg/dL 0.1-0.5 H code = 706) [employer]ic ID - LMPROTHROMBIN TIME/[id number] 13:05:00 Test Item Value Reference Range Interpretation [...] mechanical heart valves.CBC W/PLT COUNT & AUTO [id number] 12:59:00 Test Item Value Reference Range Interpretation [...] 0-1 PERCENT (BEAKER) (test code = 2801) [id number] 10:36:00 Test Item Value Reference Interpretation Comments Range Metanephrine (test 46 pg/mL < OR = 57 This mushtaq t was developed code = 9616325) and its anal ytical performance characteristics havebeen determined by [facility] Jorje Queen.It h as not been cleared or appr jean-claude by FDA. This assay has been validatedpursua nt to the CLIA regulation s and is used for clinic al purposes. Normetanephrine 213 pg/mL < OR = 148 H This test w as developed (test code = and its analyti steven 20191028) performance characteristics havebeen determined by [employer] [facility].It h as not been cleared [...] Reference: (1) Latrice Lorenz et al, Plasma Clock Maker mogranin A or Urine FractionatedMet anephrines Follow-Up Testi ng Improves the Diagnostic Accuracy of PlasmaFractiona madai Metanephrines f or Pheochromocytom a. The Journal of ClinicalEndocri nology and Metabolism 93 ( 1),91-95, 2008. For addit ional information, pl ease refer tohttp://educat ion.Sulfagenix.aka-aki networks/f aq/MetFract Free(This link is being provided for informational/e ducational purposes only.) This test was developed a nd its analytical perf ormance characteristics havebeen determined by [employer] [facility].It h as not been cleared or appr jean-claude by FDA. This assay has been validatedpursua nt to the CLIA regulation s and is used for clinic al purposes. VALENTE (test code = Performing Lab VALENTE) EZ [facility] [address] [place] [address] Mark Encarnacion MD, PhD, AMINA Lab Interpretation Abnormal (test code = 96863-8) [facility] HospitalCatecholamines, Fractionated, 24hr [id number] 11:55:00 Test Item Value Reference Interpretation Comments Range TOTAL VOLUME (test 1000 mL code = [id number]) Epinephrine,24 Hr <2 2- 24 mcg/24 h L Result b elow clinical Ur (test code = reportable r von for ) this analyte, w hich is 2 mcg/L.Repo rted result was calc ulated using 2 mcg/L. This test was develo ped and its analyti steven performance characteristics havebeen determ ined by [facility] .It has not been cl eared or approved by FDA. This assay has been validatedpursua nt to the CLIA regula tions and is used for clinical purpos es. Norepinephrine 9 15- 100 mcg/24 L This test was (test code = h developed and i ts ) analytical performance characteristics havebeen determ ined by [facility] .It has not been cl eared or approved by FDA. This assay has been validatedpursua nt to the CLIA regula tions and is used for clinical purpos es. Calculated Total 9 26- 121 mcg/24 L This mushtaq t was E+Ne (test code = h developed and its 20190907) analytical performance characteristics havebeen determ ined by [facility] .It has [...] steven performance characteristics havebeen determ ined by [facility] .It has not been cl eared or approved by FDA. This assay has been validatedpursua nt to the CLIA regula tions and is used for clinical purpos es. Creatinine,24 Hr 0.88 0.50- 2.15 Urin (test code = g/24 h ) VALENTE (test code = Performing Lab VALENTE) EZ [employer] [facility] [address] [place] [address] Mark Encarnacion MD, PhD, AMINA Lab Interpretation Abnormal (test code = 96475-8) [facility] [id number] 12:33:00 Test Item Value Reference Range Interpretation Comments SCAN RESULT (test code = 6220963) BAUOI-2-JIJNPWHIHVR [id number] 16:28:00 Test Item Value Reference Range Interpretation Comments Lab Interpretation (test code = Normal 86724-6) [facility] HospitalMetanephrines, 24 hour [id number] 12:57:00 Test Item Value Reference Interpretation Comments Range TOTAL VOLUME (test 1000 mL code = 9958457) Metanephrine (test 205 90- 315 This mushtaq t was code = 4012998) mcg/24 h developed an d its analytical perf ormance characteristics havebeen determ ined by [facility] [facility] .It has not been cleare d or approved by FDA . This assay has been validatedpursua nt to the CLIA regula [facility] and is used for clinical purpos es. Normetanephrine 657 122- 676 This test w as (test code = mcg/24 h developed and i ts 20191029) analytical perf ormance characteristics havebeen determ ined by [facility] [facility] .It has not been cleare d or approved by FDA . This assay has been validatedpursua nt to the CLIA regula [facility] and is used for clinical purpos es. [...] perf ormance characteristics havebeen determ ined by [employer] [facility] .It has not been cleare d or approved by FDA . This assay has been validatedpursua nt to the [place] regula [facility] and is used for clinical purpos es. VALENTE (test code = Performing Lab VALENTE) EZ [facility] [address] [place] [address] Mark Encarnacion MD, PhD, AMINA Lab Interpretation Abnormal (test code = 00081-9) [facility] HospitalCalcium, [id number] 05:42:00 Test Item Value Reference Range Interpretation Comments Calcium, Ion (test code = 1993-) 1.11 mmol/L 1.12-1.27 L pH, Blood (test code = 50118-3) 7.41 Lab Interpretation (test code = Abnormal 92966-8) [facility] HospitalCALCIUM, [id number] 05:42:00 Test Item Value Reference Range Interpretation Comments CALCIUM IONIZED (BEAKER) (test 1.11 mmol/L 1.12-1.27 L code = 698) PH, BLOOD (BEAKER) (test code = 7.41 1810) COMPREHENSIVE METABOLIC [id number] 04:57:00 Test Item Value Reference Range Interpretation [...] S NOT APPLICABLE FOR DIALYSIS PATIEN TS. Oil Field Equipment Mechanic ID - BSSpecimen moderately ictericHepatic function [id number] 04:53:00 Test Item Value Reference Range Interpretation Comments Protein, Total (test code 5.7 6.0- 8.3 gm/dL L = 2885-2) Albumin (test code = 3.4 g/dL 3.5-5 L 05338-8) Total Bilirubin (test 6.9 mg/dL 0.2-1.2 H code = 1974-2) Bilirubin, Direct (test 2.2 mg/dL 0.1-0.5 H code = 1967-7) Alkaline Phosphatase 58 U/L 40-150 (test code = 6768-6) AST (test code = 1920-8) 36 U/L 5-34 H ALT (test code = 1742-6) 13 U/L 6-55 VALENTE (test code = VALENTE) [employer] Equipment Mechanic ID - BSSpecimen moderately icteric Lab Interpretation (test Abnormal code = 16196-9) [facility] HospitalPhosphorus2020-07-[facility] 04:53:00 Test Item Value Reference Range Interpretation Comments Phosphorus (test code = 3.2 mg/dL 2.3-4.7 2777-1) VALENTE (test code = VALENTE) Oil [employer] Equipment Mechanic ID - BS Lab Interpretation (test Normal code = 17573-0) [facility] HospitalPHOSPHORUS2020-07-01 04:53:00 Test Item Value Reference Range Interpretation Comments PHOSPHORUS (BEAKER) (test code = 3.2 mg/dL 2.3-4.7 604) [employer] Equipment Mechanic ID - RIFNUDGTLLA6741-01-31 04:53:00 Test Item Value Reference Range Interpretation Comments MAGNESIUM (BEAKER) (test code = 1.7 mg/dL 1.6-2.6 627) Oil [employer] Equipment Mechanic ID - BSHEPATIC FUNCTION [id number] 04:53:00 Test Item Value Reference Range Interpretation [...] (test code = 13 U/L 6-55 347) [employer] Equipment Mechanic ID - BSSpecimen moderately ictericCBC W/PLT COUNT & AUTO [id number] 04:42:00 Test Item Value Reference Range Interpretation [...] PERCENT (BEAKER) (test code = 2801) PROTHROMBIN [id number] 04:36:00 Test Item Value Reference Range Interpretation [...] (test No organisms seen code = 1123) [facility] HospitalBODY FLUID CULTURE + GRAM [id number] 12:05:00 Test Item Value Reference Range Interpretation Comments CULTURE (BEAKER) (test No growth code = 1095) GRAM STAIN RESULT <1+ White blood cells (BEAKER) (test code = seen 1123) GRAM STAIN RESULT No organisms seen (BEAKER) (test code = 76780) Manual [id number] 07:35:00 Test Item Value Reference Range Interpretation [...] Poikilocytes (test code = 2+ moderate 966) [place] Cells (test code = 2+ moderate 474) Artifact (test code = Present 3432) Platelet Conc (test code Decreased = 3438) VALENTE (test code = VALENTE) [employer] Equipment Mechanic ID - [id number] ID - Maria Del Carmen Lilian comments: Slide comments: Lab Interpretation (test Abnormal code = 11224-6) [facility] W/PLT COUNT & AUTO [id number] 07:35:00 Test Item Value Reference Range Interpretation [...] CONCENTRATION Decreased (CELLAVISION)(BEAKER) (test code = 3438) [employer] Equipment Mechanic ID - [id number] ID - Maria Del Carmen Quintana comments: Slide comments:Basic Metabolic [id number] 06:24:00 Test Item Value Reference Range Interpretation Comments Sodium (test code = 140 meq/L 753-390 1233-2) Potassium (test code 3.4 meq/L 3.5-5.1 L = 2823-3) Chloride (test code = 105 meq/L 98-107 2075-0) CO2 (test code = 25 meq/L 22-29 2028-9) BUN (test code = 31 mg/dL 7-21 H 3094-0) Creatinine (test code 2.35 mg/dL 0.57-1.25 H = 2160-0) Glucose (test code = 108 mg/dL 70-105 H 2345-7) Calcium (test code = 8.7 mg/dL 8.4-10.2 35418-4) EGFR (test code = 21 mL/min/1.73 [place] [address]-2) NOT ACCURATE CREATININE CLEARANCE IN PREDICTING GLOMERULAR FILTRATION RATE . ESTIMATED GFR I S NOT APPLICABLE FOR DIALYSIS PATIENTS. VALENTE (test code = VALENTE) Oil Field Equipment Mechanic ID - PIAYA LSpecimen moderately icteric Lab Interpretation Abnormal (test code = 90481-2) [facility] METABOLIC [id number] 06:24:00 Test Item Value Reference Range Interpretation [...] S NOT APPLICABLE FOR DIALYSIS PATIEN TS. Oil Field Equipment Mechanic ID - MITCH RUTHERFORDranjeetimeyahaira moderately ictericHEPATIC FUNCTION [id number] 06:23:00 Test Item Value Reference Range Interpretation [...] (test code = 13 U/L 6-55 347) Oil [employer] Equipment Mechanic ID - MITCH Rodriguezyahaira moderately [id number] 06:22:00 Test Item Value Reference Range Interpretation Comments MAGNESIUM (BEAKER) (test code = 1.8 mg/dL 1.6-2.6 627) Oil [employer] Equipment Mechanic ID Mercedes MEYER LPROTHROMBIN TIME/[id number] 04:22:00 Test Item Value Reference Range Interpretation [...] = No growth in 5 days 6463-4) [facility] HospitalBLOOD [id number] 23:00:00 Test Item Value Reference Range Interpretation Comments CULTURE (BEAKER) (test No growth in 5 days code = 1095) BLOOD [id number] 23:00:00 Test Item Value Reference Range Interpretation Comments CULTURE (BEAKER) (test No growth in 5 days code = 1095) DLCO (single breath diffusion)2020-01-24 10:41:00Epifanio Giles, MEAT CLERK, NUCLEAR OFFICER 01/24/2020 10:52 [facility] PFT CHARTING REPORT Infection Control/Hand Hygiene procedures followed throughout the encounter with patient: YesPatient Identification Method: Patient name verified on armband, and Medical record on armband, Is the order complete?: Yes Account ID#: [id number] Name: Cici Calderon Birthdate: 1955 Age: 64 [...] and patient released from the lab without adverseoutcome.[facility] HospitalPulmonary Funct Lab Yduaujfaav2042-30-35 10:41:00Epifanio Giles, MEAT CLERK, NUCLEAR OFFICER 01/24/2020 10:52 [facility] PFT CHARTING REPORT Infection Control/Hand Hygiene procedures followed throughout the encounter with patient: YesPatient Identification Method: Patient name verified on armband, and Medical record on armband, Is the order complete?: Yes Account ID#: [id number] Name: Cici Calderon Birthdate: 1955 Age: 64 [...] and patient released from the lab without adverseoutcome.[facility] HospitalLung frioynl4305-10-03 10:41:00Epifanio Giles, MEAT CLERK, NUCLEAR OFFICER 01/24/2020 10:52 [facility] PFT CHARTING REPORT Infection Control/Hand Hyg iene procedures followed throughout the encounter with patient: YesPatient Identification Method: Patient name verified on armband, and Medical record on armband, Is the order complete?: Yes Account ID#: [id number] Name: Cici Calderon Birthdate: 1955 Age: 64 [...] and patient released from the lab without adverseoutcome.[facility]6 MINUTE WALK(FOR LUNG TRANSPLANT ONLY)2020-01-24 10:20:00Janina Meehan, JUVENAL, NUCLEAR OFFICER 01/24/2020 2:39 [facility] PFT CHARTING REPORT Infection Control/Hand Hygiene procedures followed throughout the encounter with patient: YesPatient Identification Method: Patient name verified on armband, and Medical record on armband, Is the order complete?: Account ID#: [id number] Name: Cici Calderon Birthdate: 1 09/08/1954 Age: [...] patient released from the lab without adverse outcome.[facility] HospitalU/S, [id number] 09:43:00 Referring: Dr. Rowdy Christie to be ordered:->Body Fluid Culture (w/Gram Stain, C\\T\\S)Labs marko ordered:->Cell CountReason for exam:->Acute Kidney Injury - rule out SBP - can remove volume of up to 4-5 L (given ANDERS)Should this be performed at the bedside?->YesFINAL REPORT Ultrasound guided paracentesis Clinical History: Ascites. Sedation: None. Depositing Machine Operator: Christine Ward PA-C Supervising Physician: Natan Chisholm MD Specifications Writer: None. Estimated Blood Loss: < 1 mL. [...] anesthesia was achieved with lidocaine, a 5 Portuguese one-step catheter was advanced into theperitoneal cavity under ultrasound guidance. After completion of drainage, the catheter was removed.There was no evidence of complication. Impression:Successful ultrasound guided paracentesis. Signed:Natan Chisholmeport Verified Date/Time: 01/24/2020 09:43:05 Reading Location: [address] Ultrasound Reading Room US uecnfhvdmvcm8862-08-11 09:43:00Interface, External Ris In - 01/24/2020 9:45 AM CDTFINAL REPORT Ultrasound guided paracentesis Clinical History: Ascites. Sedation: None. Depositing Machine Operator: Christine Ward PA-C Supervising Physician: Natan Chisholm MD Specifications Writer: None. Estimated Blood Loss: < 1 mL. [...] anesthesia was achieved with lidocaine, a 5 Portuguese one-step catheter was advanced into the peritoneal cavity under ultrasound guidance. After completion of drainage, the catheter was removed. There was no evidence of complication. Impression:Successful ultrasound guided paracentesis. Signed: Natan Chisholmeport Verified Date/Time: 12/27 09:43:05 Reading Location: [facility] P006J Ultrasound Reading [facility] [id number] 06:18:00 Test Item Value Reference Range Interpretation [...] S NOT APPLICABLE FOR DIALYSIS PATIEN TS. Oil Field Equipment Mechanic ID - MITCH LSpecimen moderately [id number] 05:38:00 Test Item Value Reference Range Interpretation Comments PHOSPHORUS (BEAKER) (test code = 2.8 mg/dL 2.3-4.7 604) Oil [employer] Equipment Mechanic ID - MITCH [id number] 05:38:00 Test Item Value Reference Range Interpretation Comments MAGNESIUM (BEAKER) (test code = 1.8 mg/dL 1.6-2.6 627) Oil Field Equipment Mechanic ID - MITCH LHEPATIC FUNCTION [id number] 05:38:00 Test Item Value Reference Range Interpretation [...] (test code = 11 U/L 6-55 347) Oil Field Equipment Mechanic ID - MITCH Goetzimeyahaira moderately ictericCALCIUM, [id number] 04:56:00 Test Item Value Reference Range Interpretation Comments CALCIUM IONIZED (BEAKER) (test 1.09 mmol/L 1.12-1.27 L code = 698) PH, BLOOD (BEAKER) (test code = 7.43 1810) PROTHROMBIN TIME/[id number] 04:48:00 Test Item Value Reference Range Interpretation [...] mechanical heart valves.CBC W/PLT COUNT & AUTO [id number] 04:36:00 Test Item Value Reference Range Interpretation [...] (BEAKER) (test code = 2801) Prepare Leuko-Red [id number] 23:54:00 Test Item Value Reference Range Interpretation Comments CROSSMATCH (test code = 2264) COMPATIBLE Unit ABO (test code = A Pos 1220172) UNIT NUMBER (test code = [id number] 934-0) Status (test code = 4395080) TX_TIMEINCHART Blood Bank Product (test code RED BLOOD CELLS = 2263) PRODUCT CODE (test code = C4884H25 933-2) [facility] HospitalRubeola antibody [id number] 18:06:00 Test Item Value Reference Range Interpretation Comments Rubeola Ab, 235 AU/mL REFERENCE RANGE : Igg (test code <13.50 AU/mL = 12675-9) AU/mL Interpretation ==== <13.50 Negative 13.50-16.49 Equivocal >16.49 Positive A posi tive result indicate s that the patient hasantibody to measles virus. It does notdifferentiat e between an acti ve or past infection. The clinical diagno sis must be interpr eted inconjunction w ith clinical signs and symptoms ofthe patient. For additional information, pl ease refer [email or web address] [email or web address] stDiagnostics.c om/faq/ BKH377(This rosa k is being provided for informational/e ducatio nal purposes on ly.) VALENTE (test code Performing Lab = VALENTE) *QDID [employer] [address] [place] [address] Sudhakar Hargrove MD [facility] HospitalMitochondria M2 Antibody (IgG)2020-01-23 13:50:00 Test Item Value Reference Range Interpretation Comments Mitochondria M2 Ab <20.0 See Note: U Reference (test code = Range:NEGATIVE: ) < OR = 20.0EQUIVOCAL: 20.1-24.9POSITI V E: > OR = 25.0 VALENTE (test code = Performing Lab VALENTE) [facility]Z [facility] [address] [place] [address] Mark Encarnacion MD, PhD, AMINA [facility] HospitalMumps antibody, [id number] 13:38:00 Test Item Value Reference Range Interpretation Comments Mumps Ab Igg >300.00 AU/mL REFERENCE RANGE : <9.00 (test code = AU/mL 8879829) Interpretation< 9.00 Negative9.0 0-10.99 Equivocal>10. 99 Positive A pos itive result indicate s that the patient hasanti body to mumps virus. It does not differentiatebe tween an active or past infection. The clinicaldia gnosis must be interpreted in conjunction wit hclinical signs and sympt oms of the patient. VALENTE (test Performing Lab code = VALENTE) *[employer] [facility] [address] [place] [address] Sudhakar Hargrove MD [facility] W/PLT COUNT & AUTO [id number] 12:26:00 Test Item Value Reference Range Interpretation [...] CONCENTRATION Decreased (CELLAVISION)(BEAKER) (test code = 3438) Oil Field Equipment Mechanic ID - [id number] ID - Charo SosaAgnieszka comments: Slide comments: BASIC METABOLIC [id number] 07:18:00 Test Item Value Reference Range Interpretation [...] S NOT APPLICABLE FOR DIALYSIS PATIEN TS. Oil Field Equipment Mechanic ID - MITCH LSpecimen moderately [id number] 07:17:00 Test Item Value Reference Range Interpretation Comments MAGNESIUM (BEAKER) 1.6 mg/dL 1.6-2.6 Specimen slightly (test code = 627) hemolyzed Oil [employer] Equipment Mechanic ID - MITCH [id number] 07:17:00 Test Item Value Reference Range Interpretation Comments PHOSPHORUS (BEAKER) 2.4 mg/dL 2.3-4.7 Specimen slightly (test code = 604) hemolyzed Oil Field Equipment Mechanic ID - MITCH LHEPATIC FUNCTION [id number] 07:17:00 Test Item Value Reference Range Interpretation [...] Specimen slightly (test code = 347) hemolyzed Oil [employer] Equipment Mechanic ID - MITCH LSpecimen moderately ictericB-type Natriuretic Factor (BNP) 2020-01-23 06:55:00 Test Item Value Reference Range Interpretation Comments BNP (test code = 64660-9) 2179 pg/mL 0-100 H VALENTE (test code = VALENTE) Oil Field Equipment Mechanic ID - MITCH L Lab Interpretation (test Abnormal code = 11886-7) [facility] HospitalB-TYPE NATRIURETIC FACTOR (BNP)2020-01-23 06:55:00 Test Item Value Reference Range Interpretation Comments B-TYPE NATRIURETIC PEPTIDE 2179 pg/mL 0-100 H (BEAKER) (test code = 700) Oil Field Equipment Mechanic ID - MITCH LCALCIUM, [id number] 06:31:00 Test Item Value Reference Range Interpretation Comments CALCIUM IONIZED (BEAKER) (test 1.07 mmol/L 1.12-1.27 L code = 698) PH, BLOOD (BEAKER) (test code = 7.45 1810) PROTHROMBIN TIME/[id number] 06:00:00 Test Item Value Reference Range Interpretation [...] for patients wiht mechanical heart valves.Prepare Leuko-Red [id number] 23:54:00 Test Item Value Reference Range Interpretation Comments Unit ABO (test code = 2190639) O Pos UNIT NUMBER (test code = [id number] 934-0) Status (test code = 1259817) TX_TIMEINCHART Blood Bank Product (test code PLATELETS = 2263) PRODUCT CODE (test code = B0771K68 933-2) [facility] W/PLT COUNT & AUTO [id number] 10:35:00 Test Item Value Reference Range Interpretation [...] CONCENTRATION Decreased (CELLAVISION)(BEAKER) (test code = 3438) Oil Field Equipment Mechanic ID - 6000Operator ID - Lizett OverholtUser comments: Slide comments: [id number] 10:05:00 Test Item Value Reference Range Interpretation Comments Cortisol, Total (test code 1.6 ug/dL 3.7-19.4 L = 2755) VALENTE (test code = VALENTE) Oil Field Equipment Mechanic ID - PIAYA L Lab Interpretation (test Abnormal code = 25920-6) [facility] HospitalCORTISOL2020-06-27 10:05:00 Test Item Value Reference Range Interpretation Comments CORTISOL, TOTAL (BEAKER) (test code 1.6 ug/dL 3.7-19.4 L = 2755) Oil Field Equipment Mechanic ID Mercedes MEYER LDirect AHG (KRISTI)/Direct [id number] 07:49:00 Test Item Value Reference Range Interpretation Comments Direct AHG-IGG (test code = 1006-6) NEGATIVE Direct AHG-C3B, C3D (test code = NEGATVIE 1003-3) [facility] HospitalABORH, [id number] 07:37:00 Test Item Value Reference Range Interpretation Comments ABO Grouping (test code = 2588) A Rh Factor (test code = 2589) POS [facility] HospitalCALCIUM, [id number] 06:31:00 Test Item Value Reference Range Interpretation Comments CALCIUM IONIZED (BEAKER) (test 1.10 mmol/L 1.12-1.27 L code = 698) PH, BLOOD (BEAKER) (test code = 7.44 1810) BASIC METABOLIC [id number] 06:20:00 Test Item Value Reference Range Interpretation [...] S NOT APPLICABLE FOR DIALYSIS PATIEN TS. Oil Field Equipment Mechanic ID - MITCH LSpecimen moderately [id number] 06:12:00 Test Item Value Reference Range Interpretation Comments MAGNESIUM (BEAKER) (test code = 1.7 mg/dL 1.6-2.6 627) Oil Field Equipment Mechanic MABLE MEYER LHEPATIC FUNCTION [id number] 06:12:00 Test Item Value Reference Range Interpretation [...] (test code = 10 U/L 6-55 347) [employer] Equipment Mechanic MABLE MEYER LSpecimen moderately ictericPROTHROMBIN TIME/[id number] 05:48:00 Test Item Value Reference Range Interpretation [...] is2.5-3.5 for patients wiht mechanical heart valves.Renin, [id number] 22:50:00 Test Item Value Reference Range Interpretation Comments PRA,LC/MS/MS 1.51 ng/mL/h 0.25-5.82 This test was developed (test code = and its analyti steven 0294043) performance characteristics havebeen determined by [facility].It h as not been cleared or approved by FDA. This as say has been validatedp ursuant to the CLIA reg ulations and is used for clinical purposes. VALENTE (test Performing Lab code = VALENTE) EZ [facility] [address] [facility] [place] [place] [address] Mark Encarnacion MD, PhD, AMINA [facility] HospitalBody fluid cell count with [id number] 18:33:00 Test Item Value Reference Range Interpretation Comments Appearance (test code = 9335-1) Hazy Clear A Color (test code = 6824-7) Cele Colorless, Straw A RBCs (test code = 81472-6) 4000 <=1 /cu mm H Adjusted WBC Count (test code = 86 <=5 /cu mm H 09890-6) Lining Cells (test code = 1 <=1 /cu mm 13917-7) % Segs (test code = 96825-3) 7 % % Lymphs (test code = 56888-3) 83 % % Monos (test code = 23069-5) 10 % % Eos (test code = 23983-4) 0 % % Baso (test code = 86220-3) 0 % Container Body Fluid (test code Sterile Vial = 2873) Lab Interpretation (test code = Abnormal 23547-8) [facility] HospitalBODY FLUID CELL COUNT WITH [id number] 18:33:00 Test Item Value Reference Range Interpretation [...] = 2873) Peripheral Blood Smear - Hold [id number] 15:19:00 Test Item Value Reference Range Interpretation Comments Peripheral Smear Save (test code = saved 1815) [facility] HospitalPERIPHERAL BLOOD SMEAR - HOLD [id number] 15:19:00 Test Item Value Reference Range Interpretation Comments PERIPHERAL SMEAR SAVE (BEAKER) (test saved code = 1815) [id number] 14:41:00 Test Item Value Reference Interpretation Comments Range Aldosterone (test 22 ng/dL Adult Ref erence code = 2989657) Ranges for Aldosterone: Upright 8:00-10 :00 am < or = 28 ng/ dL Upright 4:00-6: 00 pm < or = 21 ng/ dL Supine 8:00-10 :00 am 3-16 ng/dL Th is test was developed a nd its analytical perf ormance characteristics havebeen determ ined by [facility] .It has not been cleare d or approved by FDA . This assay has been validatedpursua nt to the CLIA regula tions and is used for clinical purpos es. VALENTE (test code = Performing Lab VALENTE) E[facility] [address] [place] [address] Mark Encarnacion MD, PhD, AMINA [facility] HospitalT Spot [id number] 13:05:00 Test Item Value Reference Range Interpretation Comments T-Spot TB (test code = 26741-1) Negative Neg Ctrl Spot Count (test code = 0 45631-2) Panel A Spot (test code = 82304-0) 0 Panel B Spot (test code = 08745-3) [address] (test code = 0 67040-3) Scan Result (test code = 6723135) [facility] HospitalT SPOT [id number] 13:05:00 Test Item Value Reference Range Interpretation Comments T-SPOT TB (BEAKER) (test code = Negative 1683) NEG CONTROL SPOT COUNT (BEAKER) 0 (test code = 1684) PANEL A SPOT (BEAKER) (test code = 0 1685) PANEL B SPOT (BEAKER) (test code = 0 1686) POS CONTROL SPOT CT (BEAKER) (test 0 code = 1687) SCAN RESULT (test code = 5600145) BLOOD [id number] 13:00:00 Test Item Value Reference Range Interpretation Comments CULTURE (BEAKER) (test No growth in 5 days code = 1095) BLOOD [id number] 12:00:00 Test Item Value Reference Range Interpretation Comments CULTURE (BEAKER) (test No growth in 5 days code = 1095) [id number] 10:25:00 Test Item Value Reference Range Interpretation Comments CORTISOL, TOTAL (BEAKER) (test code 5.1 ug/dL 3.7-19.4 = 2755) [employer] ID - TUAN CCOMPREHENSIVE METABOLIC [id number] 10:23:00 Test Item Value Reference Range Interpretation [...] S NOT APPLICABLE FOR DIALYSIS PATIEN TS. [employer] Equipment Mechanic ID - TUAN CSpecimen moderately ictericVaricella zoster antibody, IgG 2020-01-21 10:15:00 Test Item Value Reference Range Interpretation Comments Varicella IgG (test 3.6 code = 65065-9) VALENTE (test code = VALENTE) VARICELLA ZOSTER RESULT INTERPRETATIONS: <=0.8 Al Nonreactive: Presumed non-immune to VZV 0.9-1.0 Al Equivocal >=1.1 Al Reactive: Presumed immune to VZV [facility]Rub[facility] antibody, [id number] 10:15:00 Test Item Value Reference Range Interpretation Comments Rubella IgG Quant (test 127.0 <8.0 IU/mL H code = 8014-3) VALENTE (test code = AVLENTE) Rubella IgG Result Interpretation: </= 7.0 IU/mL Negative - Presumed non-immune 8.0 - 9.9 IU/mL Equivocal >= 10.0 IU/mL Positive - Presumed immune Lab Interpretation (test Abnormal code = 09638-9) [facility] HospitalRUBELLA ANTIBODY, [id number] 10:15:00 Test Item Value Reference Range Interpretation Comments RUBELLA IGG QUANTITATION (BEAKER) 127.0 IU/mL <8.0 H (test code = 572) Rubella IgG Result Interpretation: </= 7.0 IU/mL Negative - Presumed non- immune 8.0 - 9.9 IU/mL Equivocal >= 10.0 IU/mL Positive - Presumed immune VARICELLA ZOSTER ANTIBODY, [id number] 10:15:00 Test Item Value Reference Range Interpretation Comments VARICELLA ZOSTER IGG (AL) (BEAKER) 3.6 (test code = 3197) VARICELLA ZOSTER RESULT INTERPRETATIONS: <=0.8 Al Nonreactive: Presumed non-immune to VZV 0.9-1.0 Al Equivocal >=1.1 Al Reactive: Presumed immune to VZVReticulocyte [id number] 10:12:00 Test Item Value Reference Range Interpretation Comments % Retic (test code = 5.3 % 0.5-1.7 H 71514-1) VALENTE (test code = VALENTE) [employer] Equipment Mechanic ID - [id number] Lab Interpretation (test Abnormal code = 67838-8) [facility] HospitalRETICULOCYTE [id number] 10:12:00 Test Item Value Reference Range Interpretation Comments RETICULOCYTE COUNT PCT (BEAKER) (test 5.3 % 0.5-1.7 H code = 575) [employer] Equipment Mechanic ID - [id number] 10:06:00 Test Item Value Reference Range Interpretation Comments PHOSPHORUS (BEAKER) (test code = 3.1 mg/dL 2.3-4.7 604) [employer] Equipment Mechanic ID - TUAN [id number] 10:06:00 Test Item Value Reference Range Interpretation Comments MAGNESIUM (BEAKER) (test code = 1.7 mg/dL 1.6-2.6 627) [employer] Equipment Mechanic ID - TUAN CHEPATIC FUNCTION [id number] 10:06:00 Test Item Value Reference Range Interpretation [...] (test code = 12 U/L 6-55 347) [employer] Equipment Mechanic ID - TUAN CSpecimen moderately ictericRAD, [...] Slight interval worsening of interstitial edema Signed: Denise, Karen MDReport Verified Date/Time: 01/21/2020 10:03:32 Reading Location: [facility] Radiology Reading Room XR chest 1 view portable / [id number] 10:03:00 Interface, External Ris In - 01/21/2020 [...] Walker Verified Date/Time: 01/21/2020 10:03:32 Reading Location: [facility] Radiology Reading Room [facility] W/PLT COUNT & AUTO [id number] 09:59:00 Test Item Value Reference Range Interpretation [...] PERCENT (BEAKER) (test code = 2801) PROTHROMBIN TIME/[id number] 09:53:00 Test Item Value Reference Range Interpretation [...] MDReport Verified Date/Time: 01/21/2020 07:51:30 Reading Location: [facility] Diagnostic Imaging Reading Room - [place] [address] MR abdomen without IV contrast 2020-01-21 07:51:00Interface, [...] MDReport Verified Date/Time: 01/21/2020 07:51:30 Reading Location: [facility] Diagnostic Imaging Reading Room - [place] [address] [facility] Type and screen, [id number] 22:06:00 Test Item Value Reference Range Interpretation Comments ABO/RH AUTOMATED (BEAKER) (test A POSITIVE code = 2260) Ab Scrn (test code = 890-4) NEGATIVE [facility] HospitalRAD, CHEST, 1 VIEW, NON [id number] 21:16:00 Referring: Dr. Rowdy Zhang for exam:->JVD [...] MDReport Verified Date/Time: 01/20/2020 21:16:28 Reading Location: [address] Transitional Reading Room Cryptococcal [id number] 11:36:00 Test Item Value Reference Range Interpretation Comments Cryptococcal Antigen, Serum Negative Negative, Interference (test code = 44982-0) Lab Interpretation (test code Normal = 29038-2) [facility] HospitalCRYPTOCOCCAL [id number] 11:36:00 Test Item Value Reference Range Interpretation Comments CRYPTOCOCCAL ANTIGEN, SERUM Negative Negative, Interference (BEAKER) (test code = 1828) CBC W/PLT COUNT & AUTO [id number] 09:56:00 Test Item Value Reference Range Interpretation [...] CONCENTRATION Decreased (CELLAVISION)(BEAKER) (test code = 3438) [employer] Equipment Mechanic ID - [id number] ID - Lizett OverholtUser comments: Slide comments: COMPREHENSIVE METABOLIC [id number] 05:46:00 Test Item Value Reference Range Interpretation [...] S NOT APPLICABLE FOR DIALYSIS PATIEN TS. [employer] Equipment Mechanic ID - MIKEAYA LSpecimen moderately [id number] 05:37:00 Test Item Value Reference Range Interpretation Comments PHOSPHORUS (BEAKER) (test code = 2.8 mg/dL 2.3-4.7 604) [employer] Equipment Mechanic ID - MITCH [id number] 05:37:00 Test Item Value Reference Range Interpretation Comments MAGNESIUM (BEAKER) (test code = 1.9 mg/dL 1.6-2.6 627) Oil [employer] Equipment Mechanic ID Mercedes MEYER LHEPATIC FUNCTION [id number] 05:37:00 Test Item Value Reference Range Interpretation [...] (test code = 9 U/L 6-55 347) [employer] Equipment Mechanic ID Mercedes MEYER LSpecimen moderately ictericPROTHROMBIN TIME/[id number] 04:53:00 Test Item Value Reference Range Interpretation [...] is2.5-3.5 for patients wiht mechanical heart valves.CALCIUM, [id number] 04:45:00 Test Item Value Reference Range Interpretation Comments CALCIUM IONIZED (BEAKER) (test 1.14 mmol/L 1.12-1.27 code = 698) PH, BLOOD (BEAKER) (test code = 7.36 1810) Sodium, random [id number] 00:37:00 Test Item Value Reference Range Interpretation Comments Sodium Urine (test <20 meq/L code = 2955-3) VALENTE (test code = Reference Range: No VALENTE) NormalsOperator ID Mercedes MEYER L [facility]aventuraODIUM, RANDOM [id number] 00:37:00 Test Item Value Reference Range Interpretation Comments SODIUM URINE (BEAKER) (test code = < meq/L 243) Reference Range: No NormalsOperator ID - MITCH LUrinalysis w/Microscopic 2020-01-20 00:30:00 Test Item Value Reference Range Interpretation Comments Color, UA (test code = Yellow 5778-6) Clarity, UA (test code = Hazy 5767-9) Specific [place], UA (test 1.017 1.001-1.035 code = 5811-5) pH, UA (test code = 5.5 5.0-8.0 5803-2) Protein, UA (test code = 20 mg/dL Negative A 26689-4) Glucose, UA (test code = Negative Negative 365) Ketones, UA (test code = Negative Negative 2514-8) Bilirubin, UA (test code = Negative Negative 44451-0) Blood, UA (test code = Small Negative A 80607-1) Nitrite, UA (test code = Negative Negative 5802-4) Leukocytes, UA (test code Trace Negative A = 5799-2) Urobilinogen, UA (test 0.2 mg/dL 0.2-1 code = 15237-0) RBC, UA (test code = 1 /HPF 69833-5) WBC, UA (test code = 3 /HPF 5821-4) Bacteria, UA (test code = Rare 13458-5) Squam Epithel, UA (test 3 /HPF code = 88373-0) Hyaline Casts, UA (test 3 /LPF code = 00586-0) Specimen Source (test code = 2795) VALENTE (test code = VALENTE) [employer] Field Equipment Mechanic ID - [auto]Oil Field Equipment Mechanic ID - tech Lab Interpretation (test Abnormal code = 23657-8) [facility] HospitalUrinalysis w/Microscopic + Reflex to Culture 2020-01-20 00:30:00 Test Item Value Reference Range Interpretation Comments Color, UA (test code = 5778-6) Yellow Clarity, UA (test code = 5767-9) Hazy Specific [place], UA (test code = 1.017 1.001-1.035 5811-5) pH, UA (test code = 5803-2) 5.5 5.0-8.0 Protein, UA (test code = 34367-7) 20 mg/dL Negative A Glucose, UA (test code = 365) Negative Negative Ketones, UA (test code = 2514-8) Negative Negative Bilirubin, UA (test code = 68619-8) Negative Negative Blood, UA (test code = 42391-4) Small Negative A Nitrite, UA (test code = 5802-4) Negative Negative Leukocytes, UA (test code = 5799-2) Trace Negative A Urobilinogen, UA (test code = 0.2 mg/dL 0.2-1 73778-7) RBC, UA (test code = 00511-0) 1 /HPF WBC, UA (test code = 5821-4) 3 /HPF Bacteria, UA (test code = 48107-8) Rare Squam Epithel, UA (test code = 3 /HPF 48804-9) Hyaline Casts, UA (test code = 3 /LPF 17859-3) Specimen Source (test code = 2795) Lab Interpretation (test code = Abnormal 56691-8) [facility] HospitalURINALYSIS W/ REFLEX URINE [id number] 00:30:00 Test Item Value Reference Range Interpretation [...] SOURCE(BEAKER) (test code = 2795) URINALYSIS W/ [id number] 00:30:00 Test Item Value Reference Range Interpretation [...] /LPF 514) SOURCE(BEAKER) (test code = 2795) Oil Field Equipment Mechanic ID - [auto]Oil Field Equipment Mechanic ID - techActin (Smooth Muscle) Antibody, [...] of patients withautoimmune hepatitis (AIH) type 1, twcvebxrtflph27 % of patients with autoimmune cholangitis,lis sherine mately 30% of patients with primary biliarycirrhosi s, and approximate ly 2% of healthy people.High beatriz ues are closely correlated with AIH type 1. VALENTE (test code = Performing Lab VALENTE) [facility] [employer] [employer] [address] [place] [address] Mark Encarnacion MD, PhD, AMINA Lab Interpretation Abnormal (test code = 67007-2) [facility] HospitalZinc2020-06-24 20:06:00 Test Item Value Reference Interpretation Comments Range Zinc (test code = 39 60- 130 mcg/dL L This te st was ) developed and i ts analytical performance characteristics have been determined by [employer] . It has not been cleared or appr jean-claude by theA. This assay has been validated pursu ant to the CLIA regulations and is used for clinic al purposes. VALENTE (test code = Performing Lab VALENTE) *[employer], [address] [place] [id number] Jorje Jauregui MD, PhD Lab Interpretation Abnormal (test code = 26947-9) [facility] HospitalTissue [id number] 16:12:00 Test Item Value Reference Range Interpretation Comments Case Report (test code Surgical Pathology = 104) Report Case: [id number] Authorizing Provider: Sylvie George MD Collected: 01/17/2020 08:15 AM Ordering Location: [address] Received: 01/17/2020 01:50 PM Service Pathologist: Humaira Mendez MD Specimen: Duodenum, biopsy ADDENDUM (test code = h9qctJLmYKCypMJvFxUwGO 3381) PfCVUbq8aoEJJdhOBpEkTk MzNcZnRuYmpcdWMxXGRlZm Jcd3jfn069hKLro7luKFUe TkL6tEPeRHLgyWFyR347PV AeJCqlh9zpw4XqWXGeoXUk w0S6EKSMwsabfRp9uMlwB4 2vn4K4YtsaH1uxJZQaXXPl K6AhID9pXFLqOsw7TOY8HJ G1BBMsMRKdO4HaRN6nYMNr nXJfYCc6x5gsnTdlXTFxBP Q8a5zwUHanmgEyLJ1sjq7g fFs4x3dvqwZcZLSiDCIwwO SDSRRuX9WacKyrEy4eaBj6 xGiyTcnvOYO8Hap6YO0gfi 59ali3xAwfACRaionjOjC0 QMygOZRxprdtZEw5YHzrGR QoyCR4OVVdzVAjY5HqJEZm SG5kjzu7RJL6IKzxMXJqWy D0ERFpzPFkRQPznOduYVvd r904LTM4HnMoEM3vL5Ygv7 Y5iF1vvBUoOQBacPRsOqZy VNXjhm4aaTSvHQjhy6HzFV W3sbD5hLTwmMBcBYZbWE12 Xrdiy4ArLvnkMSP3QAYpwo Vad8Ofi2taSkIkpkPjS8fh J5OkHSEkHZOfSGImTzYmpz Btu8Yxw3KijAPxlOk6r3lk ZNCmBEPbkLsah3sxONT7LT IyR0F7kNFrl4dzCCzkNFLa iMO0qnP3PJKudMTzA7DvcZ 9fWBPiMB3txkj3m0idZJV4 NVwmNBPhSnM3snI2YNWmhQ DqLECxgRoeQMfxj961POE2 FvUkMWArz0QiE4WfmBplO6 8siXiqC20zLIOapTabqZ6e bQgqiM7qWlArFcBcBJrdMQ JkXHBsYWluXGYxXGZzMjBc bGFuZzEwMzNcaGljaFxmMV sgZuAjMDDfWEwiS7tbDsNc NpTlKRQCOFrNUNLUFX5MJN 6PCKqGZCfGW5CUUXGDAzEY RVBPUlQgVEhFIEZJTkRJTk dTIElOIFRIRSBERUVQRVIg IAPCCSgIOU8ZFQNHDVANJR 5LT0ceDF7TAOdVPjIqCIbZ MAINRfJNIWAUKCfTL5GNSg pccGFyXHFsXHBsYWluXGYw FPEaBlHmdOfpaP2qHdQwDu KjKCkbJG8vSDByI7mzrZCj ODLhXRXbF0cdGnYmkG5xsM xmMVxmczIwXHBhciAgRFVP EOWRMJ2lFAQACA4AS31GNB MgQklPUFNZOlxwYXIgICAt BTXKAVQTWWBlMxSXA8YJAw GQWwEBYJLgKMFTIF1YIZPN V5SCYDNsTPTLD4xIP7EIYx BsT5XfIS5KZBMCQVKEQ1GN Fk5YEPCQZZsgHQNlCVRsWK 7BRTZXNZRPDgJDUH9XUSPT TElBQyBESVNFQVNFIFNFRU 5ccGFyICAgLSBOTyBHUkFO VUxPTUFTLCBEWVNQTEFTSU IjK8SjORWIOExCFF9CUWPV RUVOXHBhcn0= DIAGNOSIS (test code = u2pghNTyKJJxi8wnDHQlkM 3220) FuZzEwMzNcZnRuYmpcdWMx MPtkjzJwFXvbl9WzA3BzXp AwMFxhbnNpXGRlZmxhbmcx KAUsFMA7zvIlHMHbTCtqVU NwHGivCr6wlRUyiCrxCnUk KIPdu9wrogFQjcxvrOl3d5 vwQUVzUoA6aJYmZRwsI3wa wgIheRWwMHMhGFl3sC12QY NybF7fuFBrOAmvtaGjXlG3 BBljECTvFcI9PFOywFBuXQ ZhW1ssSWZySSskYRLaBJzl aDFqBPR9vTgdz8E3dDUurX TlpGouZsKyLnJrFUYYi1Nr ZHq8tOneG6UuEIAuIlM2hM QgUGFyYWdyYXBoIEZvbnQ7 uJ30CMrxkxF1iWNwn6Oqr0 4jz877eY9nvOQeWBF2LNAx NWTmzFUdWWUePWF4QXYqlO XlJ2n8HqRhwXUlU4F2SsMl aMKxY6K0UnFleIXfQ9G9Tk VilYHuNUDxuPJzXs1ewHKb pDLtkj0vtb85IKW8p4JmjV ojVXQ9WXW8QsGsMu8rnUQy GMQyQI0gZtDxsPMiYRBfba 80gSdkBTikilZdwM5jGbAo IHBlwRHeIRJtXS1rwWMbUR MstY3scrkbUZLoJdOqfvgm PYSjrXqjpmYyWm2lfFepFK Q3HTylY8bpcT5xFeE0BTec A5cnvA0bVRa5XGcgbRN1CY SivI2gTL5oawzxu7ndIdKv CK5yukdps3seVmDyWF0tpq z7p8etTcFpNL5vgacph7zi NzIwXGhlYWRlcnkwXGZvb3 UzzomaGNYsz5FzV3GnwJtg C26zwAsbX26jRZPogQjmrK 1uwCmbsY8hXjWoBvRjPGfa bFxwbGFpblxmMVxmczIwXG nxxrynEAJyTNckS9ylVzWb GKPfnFnkXBkad9ZuGYPeYI WiHeKlAXTBDKZJIH3pRADU JC4VH19SJFSuNzmBXWPOSm nbBGAvSRBdV6SORQLHUXBB FNgxLtUKW54FOgLCQI5DAM BYWEaHOGCCJ2SFTI1WA94Y IEJGMNRLQMkUL0DKZMAnQp 4EAK4NTHVzPBNDCSEQIMWX ZXbqPWYezEHqMOYnoi92US X6XyEqc1M8ANG5XSKjIJDc r5nsLNXzbDDiPuIbBbOcXd IeRdymhUPdEVBcOqEyb1zy s999jMJit2yyEHXcQvN2oK PyOWNftSEeJ664UKOjLVzk j0cnz6MpLWUbcDErr1L6NI TJcujhdEp6aWlaJ79ie4Y1 TnhjH8mbMPKnXCGrB7PnTB 1sRBKiVxy8QVX0OPW2NBOd TUBmS3NoKR1cWTWadRHxPI e4k4keeRisGOYyRHM8b9es XTresaNiKP2hbm3qaTh7y8 xjczEgRGVmYXVsdCBQYXJh C1VazXgcBu8nxMz7fTeaJz izZXR5Rvb5TN9cln76dfe3 mYevYHSfgbbtVgT5BHrmGK VhqffwOYc3NGjqHYQfvIU8 RTTizKKpU1OrHTIuCO4elw h2VLE2TGdvXBBzJjH3MCFx iAQuDQTyrPycQEyic622KU U9UwFiEX2cM2Nam7C0rF8v aXRcZGVmdGFiNzIwXGZvcm 2mjTRnHMdhl1QxBOC2cyU6 gXHibKFtLNLhIoX3DRsxHA 5cvh13GEUbBCL3ft4kfNBv vGfplxEqySUvPUlnL7VtDU Han576LBWrE9SgUOEuq4D8 aeWwKmNjCFSqxVJ1krU7TH SuJV6wumaxt6ggGAaaHRtg LPHzflZ1zoH6XNAloNYbX7 AhfQ2uHNWeKZ9sgabnv8er ARZ0FFvfGKKhCXM9MpUcSN Ejd8Nuxwx8ZmAof8PwfGSt SYbqB96cj368QREshaFcS8 xwbGFpblxwbGFpblxmMFxm lhM7DPDhIVjmliahULPpGH npM6kiXvHfVGDhyXkgYMww l5XeAUSwYCCaExXpcGOkAS PbYut6SEUxvNAlVFFiNnLa F7oenjxcBdOVCQLpu8yyO1 klmJJKfGEeX2ZsRCucynWu IOacBIabNNR8NJL4Ua94Ss V7INUpco62 CPT Code(s) (test code m2wtxHYkKIAfjVEjTsApIN = 335) QpQLPok9coNCQjiUEtKdTy MzNcZnRuYmpcdWMxXGRlZm Fld5znf724pJFfs2hcQHBa FpE9iTEtBMMynONlU841r7 ams9ksoqIwpNE7SFSuRLW2 HLdaamVjvhR2GHpqdREwPx X8TVxphuRhHVqslwHvqwGp Xmv2ZDLfN955CNV1xMoql9 poATV0DHLmWEUkLuBoCn6e rHGnH636CJMlIZITQMOgiY w9RLXsfzRoozQunEAMv267 V693y7lsSLWblnXlpLtBmy ejb3rtB062ZPAuiBEeurHg OeIvFKDjkSJsqTO2MDYmKS 8cznxxCeOiPF9qqqxzYnMw FQ3oknb7MgRgXD7ighzdHt GzSGufWDUranaeIKKjp9Wp ctsyWJ4iO5Hfi3C1pY0roJ YiETXrfJUbDpWqWJVmgn4b fNEuNFcwp8GfHWK6rdL5fA JivVPwVGQmWU73Qpvdz8Pk FqhvJYW7UVXyitElm0Iwi1 rpBaTkbwIsI8ngW3OrXCKw AUKnSFIfAvLhisSmz6Qlo4 XpfECohWx2h5aqNVSrEJRp lQhfu0nbCCT7HYEuN0I8oP Gdb1xfKSmmJVGemNK0uttn JNzvLOIpobS2mchdMTmoHK IjsDT3wenrTCizFNImEtH5 jzbhRGckNJDfWDP0SZvdx7 98ZQH7HHsgNmceIXdhHZUk bmNvbnRccGduZGVjXHBsYW luXHBsYWluXGYwXGZzMjRc zNfqtDmhjS7pHdLjEnQoLP grER7qYBJjQ8ahyOUsPDIi HQYuD9scIfLyyV7irMnwDS skomKcGVo5OrD9FESfao1= CLINICAL HISTORY (test e4tirFRqYBTfuLHkQaSfIJ code = 3355) ClIJHsy7phCQSckQRoRuTe MzNcZnRuYmpcdWMxXGRlZm Iup2ouo083iVWnb1weTJXh AzH0bYJaQAPbfDIdY125SL CpFSehh0sqy4KuSKTazKZg m9D3TSXShbcdxAw3lRctS4 1wh7Z8WblgC3ucPHDlILrl HQJpPVewuRGxIGG4MPBrAP K0CNdglxAmlnY0UHvmdVQg DzW2MGe1q2wzqPxkDHTsZQ A5k2krEIyezgFrLG4vlg3y fXo0a5kunjSmNQXwUSEbuT DRWDBaL7NzaVefWo8vxZd7 xUutHwjhLPZ8Sbx1EI0ylu 02hff2nTlqKUUpiuxpEuJ9 YNhzIHWllttmIYw7KEicUJ JnbDcyMFxtYXJncjcyMFxt YXJndDcyMFxtYXJnYjcyMF mjOVVsGGE7ABami187PHL7 KDbsn2czq1xccJOmKxj1DW GgAzNgYoklLCxwn6Fbv4ag PYLqgk9qZSJ9fKEaxHbet9 T0eJDkLKVbjRHebvXnHMOm NnL9GUpdIL3ppk80AFKuKI Y0mi1nqPUbdArdigHpePDx NPewF4ZrHCEpd902SLUvE3 ViRJBsk5S3aaOjXjAvZJJm xVP9kkX0MUYtKLz3qMUtkm M7apSbnXKiS2jchA03FnTh cPViB9SbjP12IzFutDMdB1 HcwT74CnCydGEzX8CjpX57 UbNbcUSeGNUhkZLgUt1qgG SpkGZsj3UvxQDpCMqkP32m l358BQIvwqXoL7tidHCimd xwbGFpblxmMFxmczIwXHFs XHBsYWluXGYwXGZzMjBccG rwhW5lVsLsDpEuCBCAim8n GRY5adT6KNChlSLhWWOyQO 9fS43psEqyUznkfLO6BANv GFLql9bsji1zW41joCCewE IeOEMhVONpdjDsuP3ftY7z LJEqNJrtc6OnkkmcMJ9wgP lhXHBhcn0= SPECIMEN SOURCE (test f8ahlVDrQPXojIUkEuLrPX code = 3377) OuCDEuu9nhYUIjyZDnTmZj MzNcZnRuYmpcdWMxXGRlZm Uvf8iku270iPTye8rzSISq KnK7ySYaNRKfwEFpG184w5 ayg1ayvgVwhKD2PXUuDKH1 WZuydkNcotO1JXqkmXReMq F9HYnknjXpVSxengUgwcNo Qnh4UBXuP838NSL5zTfsq3 viCAK4KSQmWJLvZvNhAv2e mTVbN332IKJjHSZEFXRdxB m0UGIsmwSaidDxjLFJm098 T590y1mkVGTrliKheXtXep lyg2ijZ358GVDvaABkgqXv RiMuKBCwmZLfaTS7IDSaYV 6hdbteHhBmKK7xbespAaDt EF7nfhs5CtNrZY7vffbtZe GlEJxlEYIwdifiAUJyy6On ujuhMZ7wI3Ffr5U3vW9fmU UtYFAmmQCxEhInJWOwfl0z vIPeNDptb9YzRLE3efT4kQ TdbODkXGJcKK65Ewlzy2Co XyyiCNR3RIQyxaYnb8Zgd9 vwSaNewtXzQ8lnC5ViCOCt IHTtLRWgOaBgptMih6Gvp8 DhsUXdkBb5o1arLIQfUGYp dSesn6qsQNP8RDBcG1T7zG Kaj4ckRGtmSMZgvRF2rgvh RXheNKYnsdP7xgkgHApkMB TgtRS3mbrhSTthBDSuEaL8 wsflVSsaKAEsXZW0PZfqi9 50YXR7GIgrMrpnDSfkNZRw bmNvbnRccGduZGVjXHBsYW luXHBsYWluXGYwXGZzMjRc yUizlFuodA5eBaGtVjSfQU orDE9nAHUpQ7mreQXoONQq WWPlY4xeMlEusY0jeMsoYN exvaHnUWImTUP9u6FdjhGd XbVgiV6ue6lexETxhY== GROSS DESCRIPTION (test e3uqfAHaTFYsfSZaJiVrBA code = 3366) VdEEVzu9seGBGftPAdYwUc MzNcZnRuYmpcdWMxXGRlZm Vlw3out625bUAdq0llTYSv ZpG9gGRmVHTcdXKpY144XC JnNNjrp3kce2IjPNXmpENl r2U2TLYLvlxsbDg0kTpbR0 4ja8R9BclrK6sjKKUdSLxa LQFiCUobwUXkKVQ8QLIkRD L9JIqfjuTicgC0PElqfZQu UcM7WHp8x1ijtJoyIPHgUN T6k8kwTWygrwQtLB7piw2d hZm9r4ahxlRgKBBjDUHemQ ULPFJzN9VjqPjnEz7lsSn7 oXqdZwziVXZ2Sey0KI9nrw 79ure7nZvbAQSigicjCrW5 GXhvRIAapjwyKDg3DBcnQJ JnbDcyMFxtYXJncjcyMFxt YXJndDcyMFxtYXJnYjcyMF owVGPmUSZ1JFcgf431ONG1 YObvc8nni4vjaEFkFxi1DF VvUmEuFwkbUQpux6Xjh3ua DIPuew6bOCP1eIRptGqnn9 A2pSAbURVomBFwetGeKLIx ExW5SUzpAW3ceb89QUPgGK O8uw6ppFKyoWuqypKorEPv ZXjeA6DeUSQku772BJEyC3 TrWRTvk4H0adNaSxDhLFHo kHB0hhS7LKBsJNz1wGZejq T3crGclQMhC2gcuE94QyCk kTMmC4PqhH33DpPytNWqY1 FjdZ28OgQlvPFdH7MheS31 XdSntWKjFJWozYUxSw8bcG DhmUVsm6SzvNBiNMjdV04y n477WBCwyiCaI2oscSKyvm xwbGFpblxmMFxmczIwXHFs XHBsYWluXGYwXGZzMjBccG tfmY5cJxFrLyGjHPGBHoEE lHXer1DwD8bqVK3wdYRaxp AbIFc2HNIpxQ9kJi2xvSZm vS0sMMOdHVipHWQeVWDnVx DvxEMyUDznXWH6xVTiIVXi WCHeWAZhYE88F5QynmXsHY agEDRxUROzmC4gGI19oYGn ciBhbmQgIlxwbGFpblxmMF zjzmRwUHQ9i8WfrfUgEiYj jnRiW66uj5hrqLJzo8Ggf4 7uVCYplo8aoN5xZHdhmUZb tdbwTZwmfoDuNL42L93hEL qvZ929ZUOcDSfvwBSlqhht MFxmczIwICBwaWVjZXMgb2 YdsQahb4IgNO0pGLT6sdhx ZyAwLjMgeCAwLjIgeCAwLj YkR73nLDdyjWTqeepcVLyc bcKbROMkHVNajLFjbV9uim CnxsUqeOVrtYG6DUZcFJ69 rSSpdZpnIe4kpC60bP4hGR ZgcUMtOFJju86zqV7pPBHx GUDsOKY1CRJksPufrL1hSw MrIiRaLSKVOJ8lNYbPB6Xo XHBhcn0= MICROSCOPIC DESCRIPTION q4kokYImGRIukGPzGpVtPB (test code = 3371) RyAUAxb4gqNUDtvCYoIeXn MzNcZnRuYmpcdWMxXGRlZm Vgt7fyo237pQWqa6dmHXXc JmY6qVAnOOOwkTCeS576i4 url7vvmqOjmFV3IWJzONU3 DLjcuwAkrsO0PJxbhWUxVo F6BIyzxfFyXIhhsvXoyiHv Kme0WURdG581ZBH9pGcvz5 tyNXV5SKJlZOZjCcWgJf7k tNTaX625PXZnQNOQYWJguL f8VNIuklQkmrUcsMOQh477 Y744r1ecGFWlgaBhdQvFel oqp9kfW393AQLosINqlfKo RlMaSJDjfWSszOF3ACFoJN 7nsskdXaGmOZ3trpmzDbNc WQ9qqdu1VtYmSN7xdrxgWe WdACsdSZBzrpxfNFPlu9Sf uehrLP7vA8Ivo6R7sS9ogT BqDZSfcYDhOeAsVUQmde3i nOIkLKpxq5TdVXU8ifV2rF AndIEjGYLvKN37Glbbk1Nc ZwlsXRY7PDLymrSje4Emt8 hkBjPutwJkN6uoV2OgJHYn VXTqXWCmTmTjzrLan7Hpa9 EktWTxsCl5y7klZOKxSARm rVtek0atOJX3OITuO4D3bQ Pgb5zkCSblTCTrvKD1ocqp NWnlLJMrfbZ2guwqHFsrJV WznAU7hpyhJMpkEFPbZtJ9 vgiuTMkoEKQwYTB3IVwmi9 15SBZ9TFdpJsgmNRlwUXGf bmNvbnRccGduZGVjXHBsYW luXHBsYWluXGYwXGZzMjRc tTpcnQoghT8iNrYcHvZtXE fwZC6uKFAmB6zxzQMqYNDe OOYuP7ulRbVocW8gjInvBB ogrfXoDGPUBeQQPg9HRSvp YXJ9 [facility] [id number] 16:12:00Surgical Pathology Report Case: [id number] Authorizing Provider: Sylvie George MD Collected: 01/17/2020 08:15 AM Ordering Location: [address] Received: 01/17/2020 01:50 PM Service Pathologist: [...] FOVEOLAR METAPLASIA Signing Pathologist Direct Phone Line: [phone] signed by Humaira Mendez MD on 01/18/2020 at 3:50 [id number]: upper endoscopy, biopsy and colonoscopy Pre and postop diagnosis: anemiaA. Duodenum; biopsyA. The specimen is received in formalin labeled with the patient's name, accession number and "duodenum" and consists of one garduno-pink mucosal-covered pieces of tissue measuring 0.3 x 0.2 x 0.1cm. The specimen is submitted entirely following filtration in a cassette A1. HS/plPERFORMEDBlood gas, [id number] 16:03:00 Test Item Value Reference Range Interpretation [...] % Lab Interpretation (test code = Abnormal 94616-6) [facility], [id number] 16:03:00 Test Item Value Reference Range Interpretation [...] (BEAKER) (test code = 1819) 28.0 % [id number] 15:05:00 Test Item Value Reference Range Interpretation Comments Ceruloplasmin (test code 21 mg/dL 18-53 = [id number]) VALENTE (test code = VALENTE) Performing Lab *BEATRIZ [facility], [address] [place] [address] Jorje aJuregui MD, PhD [facility] HospitalCarbohydrate antigen 19-9 (CA 19-9)2020-01-19 12:51:00 Test Item Value Reference Range Interpretation Comments CA 19-9 32 U/mL <34 This test was (test code = performed using the 13839-9) Siemens Chemiluminescen t method.Values o btained from different assay methods cannot be used interchangeably .CA19-9 levels, regardl ess of value, should n ot be interpreted as absoluteevidenc e of the presence or abs ence of disease. VALENTE (test Performing Lab code = VALENTE) [facility] [id number] [place] [address] Mark Encarnacion MD, PhD, AMINA [facility] HospitalPROTHROMBIN TIME/[id number] 11:28:00 Test Item Value Reference Range Interpretation [...] patients wiht mechanical heart valves.MM, U/S, BREAST, [id number] 09:52:00Referring: Dr. Rowdy Zhang for exam:->liver transplant [...] Jorge Brooks Verified Date/Time: 01/19/2020 09:52:28 Reading Location:[address] Mammo Reading Room US breast [id number] 09:52:00Interface, External Ris In - 01/19/2020 9:54 [...] Brooks Verified Date/Time: 01/19/2020 09:52:28 Reading Location: [address] [facility] [id number] 08:09:00Referring: Dr. Rowdy LopestAnesthesia:->NonePlease specify abdominal organs:->AdrenalFINAL [...] MDReport Verified Date/Time: 01/19/2020 08:09:04 Reading Location: [facility] Diagnostic Imaging Reading Room - [place] [id number] CT abdomen without IV contrast 2020-01-19 08:09:00Interface, [...] MDReport Verified Date/Time: 01/19/2020 08:09:04 Reading Location: [facility] Diagnostic Imaging Reading Room - [place] [address] Electronically signed by: JOHN CROCKER MD on 0 01/19/2020 08:09 [facility], [id number] 07:59:00 Test Item Value Reference Range Interpretation [...] by Shaq GARCIA MICHAEL([id number]) on 01/19/2020 7:03:55 [facility] 2020-01-19 05:21:00 Test Item [...] S NOT APPLICABLE FOR DIALYSIS PATIEN TS. [employer] Equipment [employer] ID - LASpecimen moderately [id number] 05:04:00 Test Item Value Reference Range Interpretation Comments PHOSPHORUS (BEAKER) (test code = 3.3 mg/dL 2.3-4.7 604) [employer] ID - [id number] 05:04:00 Test Item Value Reference Range Interpretation Comments MAGNESIUM (BEAKER) (test code = 2.0 mg/dL 1.6-2.6 627) [employer] Mechanic ID - LAHEPATIC FUNCTION [id number] 05:04:00 Test Item Value Reference Range Interpretation [...] (test code = 10 U/L 6-55 347) [employer] Mechanic ID - LASpecimen moderately ictericB-TYPE NATRIURETIC FACTOR (BNP) 2020-01-19 04:59:00 Test Item Value Reference Range Interpretation Comments B-TYPE NATRIURETIC PEPTIDE 2455 pg/mL 0-100 H (BEAKER) (test code = 700) [employer] Mechanic ID - EDWIN BCBC W/PLT COUNT & AUTO [id number] 04:46:00 Test Item Value Reference Range Interpretation [...] (BEAKER) (test code = 2801) U/S, RENAL, [id number] 01:26:00Referring: Dr. Rowdy Zhang for exam:->Re-examine L [...] Sneed MDReport Verified Date/Time: 01/19/202001:26:59 US renal [id number] 01:26:00Interface, External Ris In - 01/19/2020 1:29 [...] prior CT and MRI. Signed: Maira Sneed [facility] Verified Date/Time: 01/19/2020 01:26:59 [facility] HospitalEosinophil [id number] 22:11:00 Test Item Value Reference Range Interpretation Comments Eosinophil Smear (test Rare EOS =less than No EOS seen A code = 14456-5) 5% WBCs seen are EOS Lab Interpretation (test Abnormal code = 98787-5) [facility] HospitalEOSINOPHIL SMEAR, [id number] 22:11:00 Test Item Value Reference Range Interpretation Comments EOSINOPHIL SMEAR, URINE Rare EOS =less than No EOS seen A (BEAKER) (test code = 5% WBCs seen are EOS 1851) SODIUM, RANDOM [id number] 22:04:00 Test Item Value Reference Range Interpretation Comments SODIUM URINE (BEAKER) (test code = < meq/L 243) Reference Range: No NormalsOperator ID - EDWIN BCreatinine, random urine 2020-01-18 22:02:00 Test Item Value Reference Range Interpretation Comments Creatinine, Ur 181.3 mg/dL (test code = 2161-8) VALENTE (test code = Reference Range: No VALENTE) NormalsOperator ID - EDWIN B [facility] HospitalProtein, random [id number] 22:02:00 Test Item Value Reference Range Interpretation Comments Protein, Urine (test code 45 mg/dL 0-14 H = 2888-6) VALENTE (test code = VALENTE) [employer] Equipment Mechanic ID - EDWIN B Lab Interpretation (test Abnormal code = 65755-4) [facility] HospitalCREATININE, RANDOM [id number] 22:02:00 Test Item Value Reference Range Interpretation Comments CREATININE URINE (BEAKER) (test 181.3 mg/dL code = 375) Reference Range: No NormalsOperator ID - EDWIN BPROTEIN, RANDOM [id number] 22:02:00 Test Item Value Reference Range Interpretation Comments PROTEIN, URINE (BEAKER) (test code = 45 mg/dL 0-14 H 1569) Oil Field Equipment Mechanic ID - EDWIN BURINALYSIS W/ [id number] 22:02:00 Test Item Value Reference Range Interpretation [...] (test Urine, Sterile code = 2795) Collection Oil [employer] Equipment Mechanic ID - [auto]Oil Field Equipment Mechanic ID - techHepatitis B core antibody, [id number] 16:02:00 Test Item Value Reference Range Interpretation Comments Hep B Core Total Ab Nonreactive Nonreactive (test code = 16991-2) VALENET (test code = VALENTE) Oil Field Equipment Mechanic ID - CHARO F Lab Interpretation (test Normal code = 23951-2) [facility] HospitalHEPATITIS B CORE ANTIBODY, [id number] 16:02:00 Test Item Value Reference Range Interpretation Comments HEPATITIS B CORE TOTAL ANTIBODY Nonreactive Nonreactive (BEAKER) (test code = 497) [employer] Equipment Mechanic ID - CHARO FECG 12 [id number] 14:19:40Interface, External Ris In - 01/18/2020 2:19 PM CDTVentricular Rate 62 BPMAtrial Rate 62 BPMP-R Interval 138 msQRS Duration 86 msQ-T Interval 452 msQTC Calculation(Bazett) 458 msP [place] 59 degreesR [place] 32 degreesT [place] 56 degreesNormal sinus rhythmLow voltage QRSNonspecific ST uvfdsfgzlff39 DEC 2019 11:05Nonspecific T wave abnormality Nonspecific T wave abnormality, improved inQT has shortenedConfirmed by MD FARHAT, [facility] ([id number]) on 01/18/2020 2:19:38 [facility] Cytomegalovirus antibody, [id number] 13:49:00 Test Item Value Reference Range Interpretation Comments CYTOMEGALOVIRUS, IGG Positive Negative, A (test code = 3429) Equivocal VALENTE (test code = VALENTE) CMV IgG Result Interpretation: </= 0.8 Al Negative 0.9-1.0 Al Equivocal >/=1.1 Al Positive Lab Interpretation (test Abnormal code = 81248-1) [facility] HospitalEBV-VCA antibody, [id number] 13:49:00 Test Item Value Reference Range Interpretation Comments GABRIEL CHING VIRAL Positive Negative, A CAPSID ANTIGEN IGG (test Equivocal code = 3415) VALENTE (test code = VALENTE) Gabriel Ching Viral Capsid Antigen IgG Result Interpretation: </= 0.8 Al Negative 0.9-1.0 Al Equivocal >/= 1.1 Al Positive Lab Interpretation (test Abnormal code = 32429-6) [facility] HospitalEBV-VCA antibody, [id number] 13:49:00 Test Item Value Reference Range Interpretation Comments GABRIEL CHING VIRAL Negative Negative, CAPSID ANTIGEN IGM (test Equivocal code = 3418) VALENTE (test code = VALENTE) Gabriel Ching Viral Capsid Antigen IgM Result Interpretation: </= 0.8 Al Negative 0.9-1.0 Al Equivocal >/= 1.1 Al Positive Lab Interpretation (test Normal code = 51724-0) [facility] HospitalCytomegalovirus antibody, [id number] 13:49:00 Test Item Value Reference Range Interpretation Comments CMV IGM (test code = Negative Negative, 3437) Equivocal VALENTE (test code = VALENTE) CMV IgM Result Interpretation: </= 0.8 Al Negative 0.9-1.0 Al Equivocal >/= 1.1 Al Positive Lab Interpretation (test Normal code = 79780-3) [facility] HospitalCYTOMEGALOVIRUS ANTIBODY, [id number] 13:49:00 Test Item Value Reference Range Interpretation Comments CYTOMEGALOVIRUS, IGG (BEAKER) Positive Negative, Equivocal A (test code = 3429) CMV IgG Result Interpretation: </= 0.8 Al Negative 0.9-1.0 Al Equivocal >/=1.1 Al PositiveCYTOMEGALOVIRUS ANTIBODY, [id number] 13:49:00 Test Item Value Reference Range Interpretation Comments CYTOMEGALOVIRUS IGM ANTIBODY Negative Negative, Equivocal (BEAKER) (test code = 3437) CMV IgM Result Interpretation: </= 0.8 Al Negative 0.9-1.0 Al Equivocal >/= 1.1 Al PositiveEBV ANTIBODY, [id number] 13:49:00 Test Item Value Reference Range Interpretation [...] Negative 0.9-1.0 Al Equivocal >/= 1.1 Al [id number] 13:35:00 Test Item Value Reference Range Interpretation Comments T3, Total (test code = 3053-6) 51 ng/dL 48-159 Lab Interpretation (test code = Normal 89829-4) [facility] HospitalT32020-06-23 13:35:00 Test Item Value Reference Range Interpretation Comments T3 TOTAL (KIRK) (test code = 656) 51 ng/dL 48-159 PET/CT, CARDIAC PERF REST AND [id number] 12:45:00Referring: Dr. Rowdy Zhang for exam:->pre op cardiac clearance for liver transplantFINAL REPORT PROCEDURE: MYOCARDIAL PERFUSION PET IMAGING (Rest/Stress)CPT CODE: 31462 INDICATION: Evaluation for liver transplant CARDIOVASCULAR PROFILE:Symptoms: [...] no prior study for comparison. Signed: [facility] Verified Date/Time: 01/18/2020 12:45:40 Reading Location: [address] Nuc Med Reading Room NM Myocardial Perfusion Pet/CT (Rest & Stress)2020-01-18 12:45:00Interface, External Ris In 01/18/2020 12:47 PM CDTFINAL REPORT PROCEDURE: MYOCARDIAL PERFUSION PET IMAGING (Rest/Stress)CPT CODE: 99563 INDICATION: Evaluation for liver transplant CARDIOVASCULAR PROFILE:Symptoms: [...] Verified Date/Time: 01/18/2020 12:45:40 Reading Location: [address] Nuc Med Reading Room [facility] HEPATIC FUNCTION [id number] 10:29:00 Test Item Value Reference Range Interpretation [...] (test code = 9 U/L 6-55 347) Oil [employer] Equipment Mechanic ID - CHARO FSpecimen moderately ictericCBC W/PLT COUNT & AUTO [id number] 08:43:00 Test Item Value Reference Range Interpretation [...] CONCENTRATION Decreased (CELLAVISION)(BEAKER) (test code = 3438) Oil Field Equipment Mechanic ID - [id number] ID - Lizett OverholtUser comments: Slide comments: [id number] 07:29:00 Test Item Value Reference Range Interpretation Comments MAGNESIUM (BEAKER) (test code = 2.1 mg/dL 1.6-2.6 627) Oil Field Equipment Mechanic ID - CHARO FBASIC METABOLIC [id number] 07:29:00 Test Item Value Reference Range Interpretation [...] S NOT APPLICABLE FOR DIALYSIS PATIEN TS. Oil Field Equipment Mechanic ID - [place] FURNACE FSpecimen moderately ictericAnti-Nuclear Antibody (REILLY) 2020-01-17 10:54:00 Test Item Value Reference Range Interpretation Comments REILLY (test code = 36015-4) Negative Negative VALENTE (test code = VALENTE) Test performed by IFA method.Test performed by IFA method. Lab Interpretation (test Normal code = 49872-2) [facility] HospitalANTI-NUCLEAR ANTIBODY (REILLY)2020-01-17 10:54:00 Test Item Value Reference Range Interpretation Comments ANTI-NUCLEAR ANTIBODY (REILLY) (BEAKER) Negative Negative (test code = 418) Test performed by IFA method.Test performed by IFA method.[id number] 10:49:00 Test Item Value Reference Range Interpretation Comments RPR (test code = 98470-4) Nonreactive Nonreactive Lab Interpretation (test code = Normal 82673-0) [facility] HospitalRPR2020-06-22 10:49:00 Test Item Value Reference Range Interpretation Comments RPR SCREEN (BEAKER) (test code = Nonreactive Nonreactive 420) CBC W/PLT COUNT & AUTO [id number] 10:00:00 Test Item Value Reference Range Interpretation [...] CONCENTRATION Decreased (CELLAVISION)(BEAKER) (test code = 3438) Oil Field Equipment Mechanic ID - [id number] ID - Alem Mars comments: Slide comments:BASIC METABOLIC [id number] 05:16:00 Test Item Value Reference Range Interpretation [...] S NOT APPLICABLE FOR DIALYSIS PATIEN TS. Oil Field Equipment Mechanic ID - MITCH LSpecimen moderately xwkrjpeTUYBZPKMS3228-59-21 05:15:00 Test Item Value Reference Range Interpretation Comments MAGNESIUM (BEAKER) (test code = 2.1 mg/dL 1.6-2.6 627) Oil Field Equipment Mechanic ID - MITCH LPROTHROMBIN TIME/[id number] 04:50:00 Test Item Value Reference Range Interpretation [...] patients wiht mechanical heart valves.Vitamin B12 and Jkuont7735-71-64 16:46:00 Test Item Value Reference Range Interpretation Comments Vitamin B12 (test code = 1107 pg/mL 213-816 H 2132-9) Folate (test code = 2284-8) 3.40 ng/mL >=7.00 L VALENTE (test code = VALENTE) Oil Field Equipment Mechanic ID - NTP Lab Interpretation (test Abnormal code = 44986-7) [facility] HospitalVITAMIN B12 AND [id number] 16:46:00 Test Item Value Reference Range Interpretation Comments VITAMIN B12 (BEAKER) (test code = 1107 pg/mL 213-816 H 774) FOLATE (BEAKER) (test code = 362) 3.40 ng/mL >=7.00 L Oil Field Equipment Mechanic ID - NTPLactate dehydrogenase (LDH)2020-01-16 12:57:00 Test Item Value Reference Range Interpretation Comments LDH (test code = 2532-0) 250 U/L 125-220 H VALENTE (test code = VALENTE) Oil Field Equipment Mechanic ID - TUAN C Lab Interpretation (test Abnormal code = 89342-7) [facility] HospitalLACTATE DEHYDROGENASE (LDH)2020-01-16 12:57:00 Test Item Value Reference Range Interpretation Comments LACTATE DEHYDROGENASE (BEAKER) (test 250 U/L 125-220 H code = 635) Oil Field Equipment Mechanic ID - TUAN CRETICULOCYTE [id number] 12:44:00 Test Item Value Reference Range Interpretation Comments RETICULOCYTE COUNT PCT (BEAKER) (test 5.0 % 0.5-1.7 H code = 575) Oil Field Equipment Mechanic ID - JohnHIV-1 Antigen with HIV-1/2 Ulgjlbjg3597-65-79 12:17:00 Test Item Value Reference Range Interpretation Comments HIV-1 Antigen with HIV Nonreactive Nonreactive 1&2 Antibody (test code = 74270-7) VALENTE (test code = VALENTE) Oil Field Equipment Mechanic ID - TUAN C Lab Interpretation (test Normal code = 15676-9) [facility] HospitalHIV-1 ANTIGEN WITH HIV-1/2 [id number] 12:17:00 Test Item Value Reference Range Interpretation Comments HIV-1 ANTIGEN WITH HIV 1\\T\\2 Nonreactive Nonreactive ANTIBODY (2) (BEAKER) (test code = 2586) Oil Field Equipment Mechanic ID - TUAN DAnsscuxjvbu3925-37-34 12:02:00 Test Item Value Reference Range Interpretation Comments Haptoglobin (test code = <8 14-258 L 4542-7) VALENTE (test code = VALENTE) Oil Field Equipment Mechanic ID - TUAN C Lab Interpretation (test Abnormal code = 39215-9) [facility] HospitalHAPTOGLOBIN2020-06-21 12:02:00 Test Item Value Reference Range Interpretation Comments HAPTOGLOBIN (BEAKER) (test code = < mg/dL 14-258 L 366) Oil Field Equipment Mechanic ID - TUAN CHemoglobin [id number] 09:01:00 Test Item Value Reference Range Interpretation Comments Hemoglobin A1C (test code = 4548-4) <3.8 4.3-6.1 L Lab Interpretation (test code = Abnormal 39663-8) [facility] HospitalHEMOGLOBIN [id number] 09:01:00 Test Item Value Reference Range Interpretation Comments HEMOGLOBIN A1C (BEAKER) (test code = < % 4.3-6.1 L 368) U/S, ABDOMINAL, WITH [id number] 07:32:00Referring: Dr. Rowdy Mccarthy Reason for exam:->liver [...] MDReport Verified Date/Time: 01/16/2020 07:32:01 Reading Location: [address] Transitional Reading Room US abdominal with kocbtra4876-34-05 07:32:00Interface, External Ris In - 01/16/2020 7:34 [...] MDReport Verified Date/Time: 01/16/2020 07:32:01 Reading Location: [address] Transitional Reading Room [facility] METABOLIC [id number] 04:41:00 Test Item Value Reference Range Interpretation [...] S NOT APPLICABLE FOR DIALYSIS PATIEN TS. Oil Field Equipment Mechanic ID Mercedes RUTHERFORDpecimen moderately brepkogFMMCOZUOV5668-22-16 04:38:00 Test Item Value Reference Range Interpretation Comments MAGNESIUM (BEAKER) (test code = 2.3 mg/dL 1.6-2.6 627) Oil Field Equipment Mechanic ID Mercedes MEYER LHEPATIC FUNCTION [id number] 04:38:00 Test Item Value Reference Range Interpretation [...] (test code = 9 U/L 6-55 347) Oil Field Equipment Mechanic ID Mercedes Jane moderately ictericPROTHROMBIN TIME/[id number] 04:36:00 Test Item Value Reference Range Interpretation [...] mechanical heart valves.CBC W/PLT COUNT & AUTO [id number] 04:29:00 Test Item Value Reference Range Interpretation [...] (BEAKER) (test code = 2801) Carotid doppler zlkmsfelk5438-94-65 00:34:03Ejection FractionSLEH ECHO HEARTLAB MKCKESSON CPACSRight Impression1. [...] AM CDTPV LAB - Carotid Duplex Study [facility] Patient Name CICI CALDERON Date of Study 01/15/2020 ALYSE Age 64 Visit Number [id number] Gender Female Accession Number [id number] Date of 1955 Referring Eliecer Carcamo Room Number 1515 Physician [employer] Grader Herbert Lechuga Interpreting Chelsea Resendez T [...] + + + - Additional Measurements:ICAPSV/CCAPSV 0.96.ICAEDV/CCAEDV 1.52.[facility] HospitalBlood typing, automated - - at seperate draw time from initial type and skxlkz8854-00-17 20:34:00 Test Item Value Reference Range Interpretation Comments ABO/RH AUTOMATED (BEAKER) (test A POSITIVE code = 2260) [facility] HospitalT42020-06-20 18:08:00 Test Item Value Reference Range Interpretation Comments T4, Total (test code = 4.3 ug/dL 4.9-11.7 L 3026-2) VALENTE (test code = VALENTE) Oil Field Equipment Mechanic ID - NTP Lab Interpretation (test Abnormal code = 85673-6) [facility] HospitalT42020-06-20 18:08:00 Test Item Value Reference Range Interpretation Comments T4 TOTAL (BEAKER) (test code = 895) 4.3 ug/dL 4.9-11.7 L Oil Field Equipment Mechanic ID - NLXStrenbvx1110-56-76 18:07:00 Test Item Value Reference Range Interpretation Comments Ferritin (test code = 489.86 ng/mL 5-275 H 2276-4) VALENTE (test code = VALENTE) Oil Field Equipment Mechanic ID - NTP Lab Interpretation (test Abnormal code = 41953-5) [facility] HospitalFERRITIN2020-06-20 18:07:00 Test Item Value Reference Range Interpretation Comments FERRITIN (BEAKER) (test code = 489.86 ng/mL 5.00-275.00 H 361) Oil Field Equipment Mechanic ID - NTPCT, CHEST, WITHOUT [id number] 17:57:00Referring: Dr. Rowdy LopestFINAL REPORT CT of [...] [place] Verified Date/Time: 01/15/2020 17:57:54 Reading Location: [facility] C013X Ortho Consult Reading Room CT chest without IV csuyolmi8323-09-46 17:57:00Interface, External Ris In - 01/15/2020 6:00 [...] Date/Time: 01/15/2020 17:57:54 Reading Location: [facility] C013X Ortho Consult Reading Room [facility] 2020-01-15 17:27:00 Test Item Value Reference Range Interpretation Comments TSH (test code = 51964-8) 5.549 0.350- 4.940 uIU/mL H VALENTE (test code = VALENTE) Oil Field Equipment Mechanic ID - DB Lab Interpretation (test Abnormal code = 94053-6) [facility] HospitalVitamin D, 79-Pxwkaes7361-59-20 17:27:00 Test Item Value Reference Range Interpretation Comments Vitamin D 25-Hydroxy 6.2 ng/mL 6.6-49.9 L (test code = 2764) VALENTE (test code = VALENTE) Effective 05/07/2017: Reference Range ChangeNew: 6.6-49.9 ng/mL Previous: 13.0-47.8 ng/mL Recommended Vitamin D Target Range: 30.0-40.0 ng/mLOperator ID - DB Lab Interpretation (test Abnormal code = 57520-7) [facility] HospitalVITAMIN D, 44-[id number] 17:27:00 Test Item Value Reference Range Interpretation Comments VITAMIN D 25-OH (BEAKER) (test code 6.2 ng/mL 6.6-49.9 L = 2764) Effective 05/07/2017: Reference Range ChangeNew: 6.6-49.9 ng/mL Previous: 13.0-47.8 ng/mLRecommended Vitamin D Target Range: 30.0-40.0 ng/mLOperator ID - [id number] 17:27:00 Test Item Value Reference Range Interpretation Comments THYROID STIMULATING HORMONE 5.549 uIU/mL 0.350-4.940 H (BEAKER) (test code = 772) Oil Field Equipment Mechanic ID - DBALPHA FETOPROTEIN (AFP), TUMOR [id number] 17:27:00 Test Item Value Reference Range Interpretation Comments ALPHA-FETOPROTEIN (BEAKER) (test code < ng/mL <10.0 = 1094) Oil Field Equipment Mechanic ID - DBHepatitis B surface tadvbda3039-08-04 17:25:00 Test Item Value Reference Range Interpretation Comments HBsAg Screen (test code Nonreactive Nonreactive = 5195-3) VALENTE (test code = VALENTE) Specimen is considered negative for HBsAg. Lab Interpretation (test Normal code = 12486-6) [facility] HospitalHepatitis B surface wpssckem8124-70-07 17:25:00 Test Item Value Reference Range Interpretation Comments Hep B S Ab (test code = 25.0 <8.0 mIU/mL H 80754-3) VALENTE (test code = VALENTE) Oil Field Equipment Mechanic ID - DB Lab Interpretation (test Abnormal code = 79862-2) [facility] HospitalHecasey county hospitaltis C xdrdvyrm8086-07-55 17:25:00 Test Item Value Reference Range Interpretation Comments Hepatitis C Ab (test code = Nonreactive Nonreactive 12678-8) VALENTE (test code = VALENTE) Oil Field Equipment Mechanic ID - DB Lab Interpretation (test Normal code = 36779-4) [facility] B SURFACE [id number] 17:25:00 Test Item Value Reference Range Interpretation Comments HEPATITIS B SURFACE ANTIGEN (2) Nonreactive Nonreactive (BEAKER) (test code = 2585) Specimen is considered negative for HBsAg.HEPATITIS B SURFACE [id number] 17:25:00 Test Item Value Reference Range Interpretation Comments HEPATITIS B SURFACE ANTIBODY 25.0 mIU/mL <8.0 H (BEAKER) (test code = 647) Oil Field Equipment Mechanic ID - DBCHERRINGTON HOSPITALTIS C QQGCCNFK5886-84-77 17:25:00 Test Item Value Reference Range Interpretation Comments HEPATITIS C ANTIBODY (BEAKER) Nonreactive Nonreactive (test code = 367) Oil Field Equipment Mechanic ID - DBCarcinoembryonic Antigen (CEA)2020-01-15 17:23:00 Test Item Value Reference Range Interpretation Comments CEA, SERUM (test code = 7.9 ng/mL 0-5 H 2039-6) VALENTE (test code = VALENTE) Oil Field Equipment Mechanic ID - DB Lab Interpretation (test Abnormal code = 93700-4) [facility] B core antibody, [id number] 17:23:00 Test Item Value Reference Range Interpretation Comments Hep B C IgM (test code = Nonreactive Nonreactive 42390-5) VALENTE (test code = VALENTE) Oil Field Equipment Mechanic ID - DB Lab Interpretation (test Normal code = 27730-1) [facility] A antibody, [id number] 17:23:00 Test Item Value Reference Range Interpretation Comments Hep A IgM (test code = Nonreactive Nonreactive 96022-0) VALENTE (test code = VALENTE) Oil Field Equipment Mechanic ID - DB Lab Interpretation (test Normal code = 43791-6) [facility] HospitalCARCINOEMBRYONIC ANTIGEN (CEA)2020-01-15 17:23:00 Test Item Value Reference Range Interpretation Comments CARCINOEMBRYONIC ANTIGEN (BEAKER) 7.9 ng/mL 0.0-5.0 H (test code = 685) Oil Field Equipment Mechanic ID - DBHEPATITIS B CORE ANTIBODY, XTS5469-04-09 17:23:00 Test Item Value Reference Range Interpretation Comments HEPATITIS B CORE IGM ANTIBODY Nonreactive Nonreactive (BEAKER) (test code = 645) Oil Field Equipment Mechanic ID - DBHEPATITIS A ANTIBODY, [id number] 17:23:00 Test Item Value Reference Range Interpretation Comments HEPATITIS A IGM ANTIBODY (BEAKER) Nonreactive Nonreactive (test code = 498) Oil Field Equipment Mechanic ID - DBRAD, MANDIBLE, MIN 4 [id number] 17:22:00Referring: Dr. Rowdy Zhang for exam:->liver transplant [...] [place] Verified Date/Time: 01/15/2020 17:22:12 Reading Location: [address] Transitional Reading Room XR mandible min 4 [id number] 17:22:00Interface, External Ris In - 01/15/2020 5:24 [...] [place] Verified Date/Time: 01/15/2020 17:22:12 Reading Location: [address] Transitional Reading [facility], 2 [id number] 17:16:00Referring: Dr. Rowdy Zhang for exam:->liver transplant [...] Alvaradoort Verified Date/Time: 01/15/2020 17:16:49 Reading Location: [address] Transitional Reading Room XR chest 2 [id number] 17:16:00Interface, External Ris In - 01/15/2020 5:19 [...] [place] Verified Date/Time: 01/15/2020 17:16:49 Reading Location: [address] Transitional Reading Room [facility] 2D Echo W/Doppler(CW/PW/Color)2020-01-15 17:15:41Ejection FractionSLEH ECHO HEARTLAB MKCKESSON CPACSInterface, External Ris In - 01/15/2020 5:15 PM C DTTransthoracic Echocardiography Report (TTE) Demographics Patient Name CICI CALDERON Date of Study 01/15/2020 ALYSE Gender Female Visit Number [id number] Race Unknown Room Number 1515 Number Date of 1955 Referring Physician Ren Hernandez MD Age 64 year(s) [employer] Grader Lisa Bautista [facility] Interpreting Jai Arreguin MD Physician Procedure [...] LVOT CO: 7.05 l/min LVOT CI: 3.67 l/min/m^2CSanger General HospitalCOMPREHENSIVE METABOLIC [id number] 17:06:00 Test Item Value Reference Range Interpretation [...] S NOT APPLICABLE FOR DIALYSIS PATIEN TS. Oil Field Equipment Mechanic ID - NTPSpecimen moderately mbxkrvoWyjkttduim4842-16-67 17:03:00 Test Item Value Reference Range Interpretation Comments Fibrinogen (test code = 3255-7) 114 mg/dl 225-434 L Lab Interpretation (test code = Abnormal 11779-1) [facility] HospitalFIBRINOGEN2020-06-20 17:03:00 Test Item Value Reference Range Interpretation Comments FIBRINOGEN LEVEL (BEAKER) (test 114 mg/dl 225-434 L code = 658) Cgjmjynutbk1525-89-84 17:00:00 Test Item Value Reference Range Interpretation Comments Transferrin (test code = 102 mg/dL 174-382 L 3034-6) VALENTE (test code = VALENTE) Oil Field Equipment Mechanic ID - DBSpecimen moderately icteric Lab Interpretation (test Abnormal code = 73494-5) [facility] HospitalIron, TIBC, % sat. (without ferritin)2020-01-15 17:00:00 Test Item Value Reference Range Interpretation Comments Iron (test code = 2498-4) 144.0 ug/dL 40-160 TIBC (test code = 2500-7) 129 ug/dL 250-450 L Iron % Saturation (test code 112 % 20-55 H = 2502-3) VALENTE (test code = VALENTE) Oil Field Equipment Mechanic ID - DB Lab Interpretation (test Abnormal code = 04232-4) [facility] HospitalTRANSFERRIN2020-06-20 17:00:00 Test Item Value Reference Range Interpretation Comments TRANSFERRIN (BEAKER) (test code = 102 mg/dL 174-382 L 541) Oil Field Equipment Mechanic ID - DBSpecimen moderately ictericIRON, TIBC, % SAT. (WITHOUT FERRITIN) 2020-01-15 17:00:00 Test Item Value Reference Range Interpretation Comments IRON (BEAKER) (test code = 547) 144.0 ug/dL 40.0-160.0 TOTAL IRON BINDING CAPACITY 129 ug/dL 250-450 L (BEAKER) (test code = 769) IRON % SATURATION (2) (BEAKER) 112 % 20-55 H (test code = 2590) Oil Field Equipment Mechanic ID - VNFbwtm-0-hngzoecnutz9101-06-20 16:59:00 Test Item Value Reference Range Interpretation Comments A-1 Antitrypsin (test code = 121.20 mg/dL 90-200 1825-9) VALENTE (test code = VALENTE) Oil Field Equipment Mechanic ID - DB Lab Interpretation (test Normal code = 45729-2) [facility] HospitalBILIRUBIN, [id number] 16:59:00 Test Item Value Reference Range Interpretation Comments BILIRUBIN DIRECT 1.6 mg/dL 0.1-0.5 H Specimen sl ightly (BEAKER) (test code = hemoly zed 706) Oil Field Equipment Mechanic ID - SPWNESBG-5-UNIADTOMXOY4094-06-20 16:59:00 Test Item Value Reference Range Interpretation Comments ALPHA-1 ANTITRYPSIN (BEAKER) 121.20 mg/dL 90.00-200.00 (test code = 502) Oil Field Equipment Mechanic ID - [id number] 16:58:00 Test Item Value Reference Range Interpretation Comments Ethanol Lvl (test code = <10 <=10 mg/dL 5643-2) VALENTE (test code = VALENTE) [employer] Equipment Mechanic ID - DB Lab Interpretation (test Normal code = 03184-5) [facility] Test Item Value Reference Range Interpretation Comments PTT (test code = 34718-1) 36.8 22.5- 36.0 seconds H Lab Interpretation (test code = Abnormal 19054-3) [facility] 16:58:00 Test Item Value Reference Range Interpretation Comments PARTIAL THROMBOPLASTIN TIME 36.8 seconds 22.5-36.0 H (BEAKER) (test code = 760) [id number] 16:58:00 Test Item Value Reference Range Interpretation Comments ETHANOL (BEAKER) (test code = 400) < mg/dL <=10 [employer] Equipment Mechanic ID - DBPROTHROMBIN TIME/[id number] 16:57:00 Test Item Value Reference Range Interpretation [...] is2.5-3.5 for patients wiht mechanical heart valves.CALCIUM, [id number] 16:45:00 Test Item Value Reference Range Interpretation Comments CALCIUM IONIZED (BEAKER) (test 1.08 mmol/L 1.12-1.27 L code = 698) PH, BLOOD (BEAKER) (test code = 7.38 1810) CREATININE, RANDOM [id number] 13:46:00 Test Item Value Reference Range Interpretation Comments CREATININE URINE (BEAKER) (test 280.7 mg/dL code = 375) Reference Range: No NormalsOperator ID - NTPSODIUM, RANDOM [id number] 13:46:00 Test Item Value Reference Range Interpretation Comments SODIUM URINE (BEAKER) (test code = < meq/L 243) Reference Range: No NormalsOperator ID - NTPHepatitis panel, [id number] 13:05:00 Test Item Value Reference Range Interpretation Comments Hep A IgM (test code = Nonreactive Nonreactive 04444-9) Hep B C IgM (test code = Nonreactive Nonreactive 45878-2) Hepatitis C Ab (test code = Nonreactive Nonreactive 18731-4) HBsAg Screen (test code = Nonreactive Nonreactive 5195-3) VALENTE (test code = VALENTE) [employer] Equipment Mechanic ID - NTP Lab Interpretation (test Normal code = 39300-9) [facility], [id number] 13:05:00 Test Item Value Reference Range Interpretation Comments HEPATITIS A IGM ANTIBODY (BEAKER) Nonreactive Nonreactive (test code = 498) HEPATITIS B CORE IGM ANTIBODY Nonreactive Nonreactive (BEAKER) (test code = 645) HEPATITIS C ANTIBODY (BEAKER) Nonreactive Nonreactive (test code = 367) HEPATITIS B SURFACE ANTIGEN (2) Nonreactive Nonreactive (BEAKER) (test code = 2585) [employer] Equipment Mechanic ID - NTPLipid [id number] 11:51:00 Test Item Value Reference Range Interpretation Comments Triglycerides (test 86 mg/dL code = 2571-8) Cholesterol (test code 101 mg/dL = 2093-3) HDL (test code = 12 mg/dL 2085-9) LDL Calculated (test 72 mg/dL code = 25292-8) VALENTE (test code = VALENTE) Triglyceride Reference Range: Low Risk <150 Borderline 150-199 High Risk 200-499 Very High Risk >=500 Cholesterol Reference Range: Low Risk <200 Borderline 200-239 High Risk >240 HDL Cholesterol Reference Range: Low Risk >=60 High Risk <40 LDL Cholesterol Reference Range: Optimal <100 Near Optimal 100-129 Borderline 130-159 High 160-189 Very High >=190 Oil [employer] Equipment Mechanic ID - NTPSpecimen moderately icteric [facility] Transfer[facility] (GGT)2020-01-15 11:51:00 Test Item Value Reference Range Interpretation Comments GGT (test code = 2324-2) 15 U/L 9-64 VALENTE (test code = VALENTE) [employer] Equipment Mechanic ID - NTPSpecimen moderately icteric Lab Interpretation (test Normal code = 28368-3) [facility] [id number] 11:51:00 Test Item Value Reference Range Interpretation Comments Uric Acid (test code = 15.7 mg/dL 2.6-7.2 H 3084-1) VALENTE (test code = VALENTE) [employer] Equipment Mechanic ID - NTPSpecimen moderately icteric Lab Interpretation (test Abnormal code = 06981-6) [facility] [id number] 11:51:00 Test Item Value Reference Range Interpretation Comments URIC ACID (BEAKER) (test code = 15.7 mg/dL 2.6-7.2 H 773) [employer] Equipment Mechanic ID - NTPSpecimen moderately ictericLIPID [id number] 11:51:00 Test Item Value Reference Range Interpretation [...] Borderline 130-159 High 160-189 Very High >=190 Oil Field Equipment Mechanic ID - NTPSpecimen moderately [id number] 11:51:00 Test Item Value Reference Range Interpretation Comments PHOSPHORUS (BEAKER) (test code = 4.5 mg/dL 2.3-4.7 604) [employer] Equipment Mechanic ID - NTPGAMMA GLUTAMYL TRANSFERASE (GGT)2020-01-15 11:51:00 Test Item Value Reference Range Interpretation Comments GAMMA GLUTAMYL TRANSFERASE (BEAKER) 15 U/L 9-64 (test code = 364) [employer] Equipment Mechanic ID - NTPSpecimen moderately ictericCBC W/PLT COUNT & AUTO [id number] 11:25:00 Test Item Value Reference Range Interpretation [...] CONCENTRATION Decreased (CELLAVISION)(BEAKER) (test code = 3438) [employer] Equipment Mechanic ID - 6000Operator ID - Ana Laura James comments: Slide comments: [id number] 10:20:00 Test Item Value Reference Range Interpretation Comments MAGNESIUM (BEAKER) (test code = 2.2 mg/dL 1.6-2.6 627) [employer] Equipment Mechanic ID - [id number] 08:57:00 Test Item Value Reference Range Interpretation Comments Ammonia (test code = 19 18- 72 mol/L 58480-3) VALENTE (test code = VALENTE) Oil [employer] Equipment Mechanic ID - NTP Lab Interpretation (test Normal code = 25393-8) [facility]AMMON[facility] 08:57:00 Test Item Value Reference Range Interpretation Comments AMMONIA (BEAKER) (test code = 348) 19 mol/L 18-72 [employer] Equipment Mechanic ID - NTPHEPATIC FUNCTION [id number] 05:21:00 Test Item Value Reference Range Interpretation [...] (test code = 12 U/L 6-55 347) [employer] Equipment Mechanic ID - DALTON MSpecimen moderately ictericBASIC METABOLIC [id number] 05:15:00 Test Item Value Reference Range Interpretation [...] S NOT APPLICABLE FOR DIALYSIS PATIEN TS. Oil [employer] Equipment Mechanic ID - DALTON MSpecimen moderately ictericPROTHROMBIN TIME/[id number] 04:37:00 Test Item Value Reference Range Interpretation [...] Detected Not Detected, (test code = Negative 38561-9) SARS-COV-2 [facility] PERFORMING LAB (test code = 38671-3) VALENTE (test code = Negative results do [...] of the Act. Fact Sheet for Healthcare Providers:https://www.Tweet Category/Documents/Xper t%20Xpress%20SARS%20CoV- 2/Fact%20Sheets/302-3802 %64EMMG-LYS-2%20HEALTHCA RE%20PROVIDERS%20FACT%20 SHEET.pdf Fact Sheet for Healthcare Patients:https://www.Droplr.aka-aki networks/Documents/Xpert %20Xpress%20SARS%20CoV-2 /Fact%20Sheets/302-3801% 82DAZE-JOO-9%20PATIENT%2 0FACT%20SHEET.pdf Performing Laboratory:[facility] [place] [address] [facility]OV2/RT-[facility] ([facility] REF LABS)2020-01-15 01:48:00 Test Item Value Reference Range Interpretation Comments SARS-COV2/RT-PCR (test Not Detected Not Detected, Negative code = 4784872) SARS-COV-2 PERFORMING LAB [facility] (test code = 7838124) Negative results do not preclude SARS-CoV-2 infection [...] of the Act.Fact Sheet for Healthcare Pro viders:https://www.[employer]/Documents/Xpert%20Xpress%20SARS%20CoV-2/Fact%20Sh eets/302-3802%48MYYM-AIT-1%20HEALTHCARE%20PROVIDERS%20FACT%20SHEET.pdfFact Sheet for Healthcare Patients:https://www.ApexPeak/Documents/Xpert%20Xpress%20SARS%20CoV-2/Fact%20Sheets/302-3801%20SARS-COV -2%20PATIENT%20FACT%20SHEET.pdfPerforming Laboratory:[facility], [place] [address]IKSAA METABOLIC [id number] 22:40:00 Test Item Value Reference Range Interpretation [...] S NOT APPLICABLE FOR DIALYSIS PATIEN TS. Oil [employer] Equipment Mechanic ID - DBSpecimen moderately ictericHEPATIC FUNCTION [id number] 22:39:00 Test Item Value Reference Range Interpretation [...] Specimen slightly (test code = 347) hemolyzed [employer] Equipment Mechanic ID - DBSpecimen moderately ictericPROTHROMBIN TIME/[id number] 22:28:00 Test Item Value Reference Range Interpretation [...] mechanical heart valves.CBC W/PLT COUNT & AUTO [id number] 22:22:00 Test Item Value Reference Range Interpretation [...] code = 2801) ALPHA FETOPROTEIN (AFP), TUMOR [id number] 18:31:00 Test Item Value Reference Range Interpretation Comments ALPHA-FETOPROTEIN (BEAKER) (test code < ng/mL <10.0 = 1094) Oil [employer] Equipment Mechanic ID - DBBASIC METABOLIC [id number] 15:23:00 Test Item Value Reference Range Interpretation [...] S NOT APPLICABLE FOR DIALYSIS PATIEN TS. Oil Field Equipment Mechanic ID - BSPlease sent STATSpecimen moderately ictericHEPATIC FUNCTION [id number] 15:18:00 Test Item Value Reference Range Interpretation [...] (test code = 17 U/L 6-55 347) Oil Field Equipment Mechanic ID - BSPlease sent STATSpecimen moderately [...] valves.Please sent STATCBC W/PLT COUNT & AUTO [id number] 15:05:00 Test Item Value Reference Range Interpretation [...] (BEAKER) (test code = 2801) CT, ABDOMEN, [id number] 15:58:00Referring: Dr. Reno SweattFINAL REPORT CT OF [...] appropriately assess washout features. Signed: Sohail Marinelli MDRepshriners hospitals for children Verified Date/Time: 05/02/2017 15:58:35 Reading Location: [facility] C013Y CT Body Reading Room CBC W/PLT COUNT & AUTO [id number] 17:30:00 Test Item Value Reference Range Interpretation [...] code = 417) 0.00ALPHA FETOPROTEIN (AFP), TUMOR [id number] 16:31:00 Test Item Value Reference Range Interpretation Comments ALPHA-FETOPROTEIN (BEAKER) (test 3.3 ng/mL <10.0 code = 1094) Effective 06/14/2014: Reference Range ChangeNew: <10.0 Previous: 0.0-8.0 BASIC METABOLIC [id number] 16:13:00 Test Item Value Reference Range Interpretation [...] FOR DIALYSIS PATIEN TS. Specimen slightly ictericLIPID [id number] 16:13:00 Test Item Value Reference Range Interpretation [...] Very High >=190 Specimen slightly ictericHEPATIC FUNCTION [id number] 16:13:00 Test Item Value Reference Range Interpretation [...] (test code = 364) Specimen slightly ictericPROTHROMBIN [id number] 16:13:00 Test Item Value Reference Range Interpretation [...]
[2020-07-31 08:16] VITALS: BMI 30.5
--- NOTE | 2020-07-31 10:06 | RAD REPORT ---
EXAM DESCRIPTION: US - Paracentesis Proc Guidance - 07/31/2020 9:27 am CLINICAL HISTORY: ASCITES Ascites COMPARISON: Paracentesis Proc Guidance dated 07/18/2020 FINDINGS: Informed consent was obtained and time-out was performed. Patient's abdomen was prepped and draped in the usual sterile fashion. 1% lidocaine was used for loca l anesthetic purposes. A small skin incision was made in the right lower quadrant. A paracentesis catheter was guided into t he peroneal cavity under sonographic guidance. A small amount of fluid was sent for requested lab studies. A large volume paracentesis was performed . The patient tolerated the procedure well. Patient was administered IV albumin per protocol following the procedure. IMPRESSION: Successful ultrasound-guided paracentesis.
[2020-07-31 10:33] VITALS: TEMP 98.4
[2020-07-31 10:52] VITALS: O2SAT 100
[2020-07-31 11:19] VITALS: BP 100/47
[2020-07-31 13:30] LABS: Appearance CLEAR (CLEAR); Body Fluid Source PERITONEAL; Color of fluid Yellow (COLORLESS)
[2020-07-31 13:31] LABS: Body Fluid WBC 161 /mm^3
== END ==
LOC: DS 07:15
PROVIDERS: ATTEND Internal Medicine Gastroenterology
DX: R18.8 Other ascites (principal); K74.69 Other cirrhosis of liver; R14.0 Abdominal distension (gaseous); K70.0 Alcoholic fatty liver; R17 Unspecified jaundice
CPT/HCPCS: 87070; 36415; 89050; 87077; 87186; 96365; 49083; P9047

== ENCOUNTER 2020-08-13 05:00 | Emergency (ER) | payer OTHER ==
--- OUTSIDE RECORDS SUMMARY | 2020-08-13 05:02 | XMS REPORT | Clinical Summary ---
:1955 Author Organization [facility] Address [address] [place] [address] Care Team Providers Name Role Phone Nahun Leonard MD Primary Care Provider Allergies Not on File Medications Not on file Active Problems Not on file Social History Tobacco Use Types Packs/Day Years Used Date Never Assessed Sex Assigned at Date Recorded Not on file Last Filed Vital Signs Not on file Plan of Treatment Health Maintenance Due Date Last Done Comments COVID-19 VACCINE (1 of 2) 1970 BREAST CANCER SCREENING 2004 COLONOSCOPY SCREENING 2004 SHINGLES VACCINES (#1) 2004 65+ PNEUMOCOCCAL VACCINE (1 of 1 - PPSV23) 2019 INFLUENZA VACCINE 02/26/2020 Results Not on fileafter 08/13/2019 Advance Directives For more information, please contact: [phone] Type Date Recorded 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
--- OUTSIDE RECORDS SUMMARY | 2020-08-13 05:06 | XMS REPORT | Clinical Summary ---
:1955 Author Organization [facility] Address [address] [place] [address] Care Team Providers Name Role Phone Zeinab [...] hepatic cirrhosis type (HCC), Vitamin D deficiency calcitrioL Take 1 capsule 30 capsule 5 Act rosalba (ROCALTROL) 0.5 (0.5 mcg total) 1 MCG by mouth daily. capsuleIndications : Cirrhosis [...] hepatic cirrhosis type (HCC), Vitamin D deficiency calcitrioL Take 1 capsule 30 capsule 2 Dis continued (ROCALTROL) 0.5 (0.5 mcg total) 0 021 (Reorder) MCG by mouth daily. capsuleIndications : Cirrhosis of liver without ascites, unspecified hepatic cirrhosis type (HCC) Active Problems Problem Noted Date Awaiting organ [...] Encounters Date Type Specialty Care Team Description 08/10/2020 Social Work Transplant Master Henriquez LCSW 08/09/2020 Telephone Transplant Hepatology Rosio Shine 08/08/2020 Hospital Encounter Radiology Kristofer Cross Cirrhosis of liver without ascites, unspecified hepatic cirrhosis type (HCC); MD Nhi Awaiting organ transplant status; Screening for m alignant neoplasm 08/08/2020 Telephone Transplant Hepatology Radha Velazquez Foll ow-up RN 08/08/2020 Documentation Transplant Adria Bruce, ESRD (end st age renal disease) (HCC) (Primary Dx); RN Pre-transplant evaluation for end stage renal disease; Essential hyper tension, malignant 08/08/2020 Telephone Transplant Hepatology Rosio Hernandez (See Mariaelena note) 08/08/2020 Documentation Transplant Adria Bruce, FRANCISCA 08/07/2020 Telephone Transplant Hepatology Rosio Shine 08/01/2020 Orders Only Transplant Hepatology Cary Talley Cirr hosis of liver R, RN without ascites , unspecified hep atic cirrhosis type (HCC) 07/31/2020 Abstract Transplant Hepatology Cary Talley RN 07/31/2020 Documentation Transplant Peña, Alison 07/31/2020 Abstract Transplant Peña, Alison 07/31/2020 Abstract Transplant Peña, Alison 07/27/2020 Telephone Transplant Hepatology Radha Velazquez, Labs Only RN 07/25/2020 Orders Only Transplant Hepatology Cary Talley Pre- transplant evaluation for liver transplant; R, RN 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, unspecified hepatic cirrhosis type (HCC) 07/20/2020 Documentation Transplant Hepatology Cadence Shine 07/18/2020 Telephone Transplant Hepatology Cary Talley ow-up R, RN 07/18/2020 Documentation Transplant Hepatology Cary Talley RN 07/17/2020 Telephone Transplant Hepatology Cary Talley [...] 07/14/2020 Telephone Transplant Hepatology Cary Talley ow-up R, RN 07/13/2020 Refill Transplant Hepatology Kristofer Cross sis of liver MD Nhi without ascites , unspecified hep atic cirrhosis type (HCC) 07/12/2020 Abstract Transplant Hepatology Cary Talley RN 07/12/2020 Documentation Transplant Hepatology Cary Talley RN 07/07/2020 Telephone Transplant Hepatology Rosio Hernandez tmekristin (LVM. [employer] Ledes[employer] Calling to info rm [...] also.) 07/07/2020 Telephone Transplant Hepatology Rosio Hernandez tment (BLADIMIR. [employer] Ledesma Calling to conf irm 07/11 appts w/p t. ) 07/06/2020 Telephone Transplant Hepatology Cary Talley RFRANCISCA 06/23/2020 Documentation Transplant Hepatology Cadence Shine 06/14/2020 Documentation Transplant Hepatology Cary Talley RN 06/13/2020 Orders Only Transplant Hepatology Cary Talley Pre- transplant evaluation for liver transplant; R, RN 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, unspecified hepatic cirrhosis type (HCC) 06/09/2020 Telephone Transplant Hepatology Cary Talley R RN 06/01/2020 Telephone Transplant Hepatology Lizz Shine [place] 05/29/2020 Orders Only Transplant [...] R, RN 04/12/2020 Documentation Transplant Hepatology Hamilton, Jose Migueleyl 04/11/2020 Hospital Encounter [place], Kristofer Cirrhosis of [...] H, MA 03/20/2020 Documentation [facility]/14[facility] Documentation Transplant Hepatology Cary Talley R, [...] due R, RN 02/16/2020 Documentation Transplant Hepatology Haimlton, Micheyblake 02/16/2020 Documentation Transplant [facility]ology [facility]/16/2020 Documentation Central Scheduling Hamilton, Micheyl 02/16/2020 [...] Orders Only Hepatology Larry, Line Hepatic Kastrup, 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) 02/03/2020 Documentation Hepatology Kristofer Cross MD 02/02/2020 Telephone Transplant Hepatology Cary Talley R RN 02/01/2020 UNOS Charge Visit Transplant Hepatology Rito Saini irrhosis of liver Ildefonso Spencer MD without ascites , unspecified hep atic cirrhosis type (HCC) 02/01/2020 Documentation Transplant Hepatology Alfonso Jose Miguelsuresh 02/01/2020 Abstract Transplant Hepatology Cary Talley R RN 02/01/2020 Telephone Hepatology PRIOR ITZEL Craven (HENRY GOMEZ) Kimmie 02/01/2020 Orders Only Transplant Hepatology Cary Talley Pre- transplant evaluation for liver transplant (Primary Dx); R, RN 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, unspecified hepatic cirrhosis type (HCC) 02/01/2020 Telephone Transplant Hepatology Cary Talley Labs Only R, RN 01/31/2020 Documentation Intensive Care Leo Arias 01/31/2020 Documentation Transplant Hepatology Cary Talley R RN 01/31/2020 Telephone Transplant Hepatology Cary Talley othe r R, RN 01/31/2020 Telephone Transplant Hepatology Cary Talley endo crine clearance R, RN 01/21/2020 Abstract Transplant Hepatology Poonam Martínez 01/20/2020 Documentation Transplant Hepatology Poonam Martínez R 01/20/2020 Abstract Transplant Hepatology Inge Salazar MA 01/19/2020 Surgery Nallely R & L SIDDHARTHA / MD Brian CORONARY ANGIOS (+/- LV) 01/18/2020 Outside Orders Radiology Mitzy English, ECONOMIC DEVELOPMENT SPECIALIST 01/17/2020 Anesthesia Event Gastroenterology Agatha Lr MD Vences, Wendy Diaz, POOL NURSE 01/17/2020 Surgery Gastroenterology Sylvie George UPPER MD [...] Line Obesity (BMI 35.0-39.9 without comorbidity); Kastrup, ECONOMIC DEVELOPMENT SPECIALIST Adrenal mass, l eft ; Screening for m alignant neoplasm; Elevated serum creatinine; Other ascites 12/31/2019 Telephone Hepatology Niraj, Dai Goncalves MA 12/21/2019 Documentation Hepatology Kadie Larry Kasjacki, ECONOMIC DEVELOPMENT SPECIALIST 12/17/2019 Abstract Hepatology Ivanna Healy MA 12/16/2019 [...] Sahni Appointment AMRIT [place] after 08/13/2019 Family History Medical History Relation Name Comments [...] Treatment Date Type Specialty Care Team Description 08/15/2020 Appointment Radiology Kristofer Cross MD [address] [address] 0 [phone] 08/29/2020 Follow-Up Transplant Hepatology Health Maintenance Due Date Last Done Comments BREAST CANCER SCREENING 1955 PNEUMOCOCCAL 65+ YRS (2 of 2 - PPSV23) 2019 0, 02/23/2020 INFLUENZA VACCINE (#1) 2020 DEPRESSION SCREENING (12+) 07/28/2020 MEDICARE ANNUAL WELLNESS (YEAR 2 or FIRST 07/29/2020 YEAR if no IPPE) COLON CANCER SCREENING COLONOSCOPY 01/16/2030 01/17/2020 Procedures Procedure Name Priority Date/Time Associated Comments Diagnosis BILIRUBIN, DIRECT STAT 07/26/2020 4:15 Pre-transplant Resu lts for this PM AIR BRAKE OPERATOR evaluation for procedure are in liver transplant the results Cirrhosis of liver section. without ascites, unspecified hepatic cirrhosis type (HCC) CBC W/PLT COUNT & STAT 07/26/2020 4:15 Pre-transplant Resu lts for this AUTO DIFFERENTIAL PM AIR BRAKE OPERATOR evaluation for procedur e are in liver transplant the results Cirrhosis of liver section. without ascites, unspecified hepatic cirrhosis type (HCC) COMPREHENSIVE STAT 07/26/2020 4:15 Pre-transplant Results for this METABOLIC PANEL PM AIR BRAKE OPERATOR evaluation for procedure are in liver transplant the results Cirrhosis of liver section. without ascites, unspecified hepatic cirrhosis type (HCC) PROTHROMBIN TIME/INR STAT 07/26/2020 4:15 Pre-transplant R esults for this PM AIR BRAKE OPERATOR evaluation for procedure are in liver transplant the results Cirrhosis of liver section. without ascites, unspecified hepatic cirrhosis type (HCC) BILIRUBIN, DIRECT STAT 07/17/2020 11:33 Pre-transplant Resu lts for this AM AIR BRAKE OPERATOR evaluation for procedure are in liver transplant the results Cirrhosis of liver section. without ascites, unspecified hepatic cirrhosis type (HCC) CBC W/PLT COUNT & STAT 07/17/2020 11:33 Pre-transplant Resu lts for this AUTO DIFFERENTIAL AM AIR BRAKE OPERATOR evaluation for procedur e are in liver transplant the results Cirrhosis of liver section. without ascites, unspecified hepatic cirrhosis type (HCC) COMPREHENSIVE STAT 07/17/2020 11:33 Pre-transplant Results for this METABOLIC PANEL AM AIR BRAKE OPERATOR evaluation for procedure are in liver transplant the results Cirrhosis of liver section. without ascites, unspecified hepatic cirrhosis type (HCC) PROTHROMBIN TIME/INR STAT 07/17/2020 11:33 Pre-transplant R esults for this AM AIR BRAKE OPERATOR evaluation for procedure are in liver transplant the results Cirrhosis of liver section. without ascites, unspecified hepatic cirrhosis type (HCC) BILIRUBIN, DIRECT STAT 07/11/2020 11:39 Pre-transplant Resu lts for this AM AIR BRAKE OPERATOR evaluation for procedure are in liver transplant the results Cirrhosis of liver section. without ascites, unspecified hepatic cirrhosis type (HCC) CBC W/PLT COUNT & STAT 07/11/2020 11:39 Pre-transplant Resu lts for this AUTO DIFFERENTIAL AM AIR BRAKE OPERATOR evaluation for procedur e are in liver transplant the results Cirrhosis of liver section. without ascites, unspecified hepatic cirrhosis type (HCC) COMPREHENSIVE STAT 07/11/2020 11:39 Pre-transplant Results for this METABOLIC PANEL AM AIR BRAKE OPERATOR evaluation for procedure are in liver transplant the results Cirrhosis of liver section. without ascites, unspecified hepatic cirrhosis type (HCC) PROTHROMBIN TIME/INR STAT 07/11/2020 11:39 Pre-transplant R esults for this AM AIR BRAKE OPERATOR evaluation for procedure are in liver transplant the results Cirrhosis of liver section. without ascites, unspecified hepatic cirrhosis type (HCC) BILIRUBIN, DIRECT STAT 06/13/2020 12:36 Pre-transplant Resu lts for this PM AIR BRAKE OPERATOR evaluation for procedure are in liver transplant the results Cirrhosis of liver section. without ascites, unspecified hepatic cirrhosis type (HCC) CBC W/PLT COUNT & STAT 06/13/2020 12:36 Pre-transplant Resu lts for this AUTO DIFFERENTIAL PM AIR BRAKE OPERATOR evaluation for procedur e are in liver transplant the results Cirrhosis of liver section. without ascites, unspecified hepatic cirrhosis type (HCC) COMPREHENSIVE STAT 06/13/2020 12:36 Pre-transplant Results for this METABOLIC PANEL PM AIR BRAKE OPERATOR evaluation for procedure are in liver transplant the results Cirrhosis of liver section. without ascites, unspecified hepatic cirrhosis type (HCC) PROTHROMBIN TIME/INR STAT 06/13/2020 12:36 Pre-transplant R esults for this PM AIR BRAKE OPERATOR evaluation for procedure are in liver transplant [...] procedure are i n the results section. [id number] AP Routine 01/19/2020 9:43 PHENOTYP PM CDT [...] 452 ms QTC Calculation(Bazett) 458 ms P [place] 59 degrees R [place] 32 degrees T [place] 56 degrees Normal sinus rhythm Normal ECG [...] procedure are i n the results section. [id number]\\, Routine 01/15/2020 4:17 Re sults for this [...] are i n the results section. SARS-COV2/RT-PCR ([facility] STAT 01/14/2020 7:28 R esults for [...] results hepatic cirrhosis section. type (HCC) after 08/13/2019 Results Prothrombin time/INR (07/26/2020 4:15 PM AIR BRAKE OPERATOR)Only the most recent of28 results within the time period is included. Pathologist Sig nature INR 1.2 (H) [facility] Comment: Reference Range 0.9-1.1 Moderate-intensity Warfarin Therapy 2.0-3.0 Higher-intensity Warfarin Therapy 3.0-4.0 PT 11.9 (H) 9.0 - 11.5 sec [facility] Comment: For additional information, please refer to http://education.Loop App.[employer]/faq/CTU587 (This link is being provided for informational/ educational purposes only.) Specimen Blood Narrative Performed At FASTING:NO [facility] FASTING: NO Resulting Agency Comment Performing Organization Information: Site ID: [id number] Name: [facility] Address: [address] [place] [address], [place] [address] Director: Jj Carrasco Performing Organization Address City/State/Zipcode Phone Number [facility] [address] [place] [address] [facility] CBC with platelet count + automated diff (07/26/2020 4:15 PM AIR BRAKE OPERATOR)Only the most recent of12 resultswithin the time [...] Performing Organization Information: Site ID: [id number] Name: [facility] Address: [address] [place] [address], [place] [address] Director: Jj Carrasco Performing Organization Address City/State/Zipcode Phone Number [facility] [address] [place] [address] [facility] Bilirubin, direct (07/26/2020 4:15 PM AIR BRAKE OPERATOR)Only the most recent of15 results within the time period is included. Pathologist Sig nature Bilirubin, Total 2.5 (H) 0.2 - 1.2 mg/dL [facility] Bilirubin, Direct 0.8 (H) < OR = 0.2 mg/dL [facility] Bilirubin, Indirect 1.7 (H) 0.2 - 1.2 mg/dL (calc) [facility] Specimen Blood Narrative Performed At FASTING:NO [facility] FASTING: NO Resulting Agency Comment Performing Organization Information: Site ID: [id number] Name: [facility] Address: [address] [place] [address], [place] [address] Director: Jj Carrasco Performing Organization Address City/State/Zipcode Phone Number [facility] [address] [facility] [place] [address] [facility] Comprehensive metabolic panel (07/26/2020 4:15 PM AIR BRAKE OPERATOR)Only the most recent of19 resultswithin the time period is included. Glucose 93 65 - 139 [facility] Comment: mg/dL Non-fasting reference interval BUN 38 (H) 7 - 25 mg/dL [facility] Creatinine 2.80 (H) 0.50 - 0.99 [facility] Comment: mg/dL For patients >49 years of age, the reference limit for Creatinine is approximately 13% higher for people identified as -Romanian. eGFR If NonAfricn 17 (L) > OR [...] Agency Comment Performing Organization Information: Site ID: [facility] Name: [facility] Address: [address] [place] [phone] Director: Jj Carrasco Performing Organization Address [facility] Phone Number [employer] [address] [place] [address] [facility] PLATELET ESTIMATION (05/02/2020 1:25 PM CDT)Only the most recent of3 results within the time period is included. Pathologist Sig nature Platelet Estimate DECREASED (A) ADEQUATE [facility] Specimen Narrative Performed At FASTING:NO [facility] FASTING: NO Resulting Agency Comment Performing Organization Information: Site ID: [facility] Name: [facility] Address: [address] [place] [phone] Director: Jj Carrasco Performing Organization Address [facility] Phone Number [employer] [address] [place] [address] [facility] XR dxa bone density study (04/11/2020 11:51 AM CDT) Specimen Narrative Performed At FINAL REPORT [facility] Bone density study, 04/11/2020 Clinical History: [...] Report Verified Date/Time: 04/11/2020 13:34:32 Reading Location: [address] Procedure Note [...] Verified Date/Time: 04/11/2020 1 3:34:32 Reading Location: [address] Room Performing Organization Address City/State/Zipcode Phone Number [facility] CBC with platelet count + automated diff (04/11/2020 11:13 AM CDT)Only the most recent of16 resultswithin the time period is included. Pathologist Sig nature WBC 3.5 3.5 - 10.5 [facility] KL [facility] RBC 2.51 (L) 3.93 - 5.22 [facility] M/L [facility] Hemoglobin 9.4 (L) 11.2 - 15.7 [facility] GM/DL [facility] Hematocrit 30.2 (L) 34.1 - 44.9 % [facility] MCV 120.3 (H) 79.4 - 94.8 fL [facility] MCH 37.5 (H) 25.6 - 32.2 pg [facility] MCHC 31.1 (L) 32.2 - 35.5 [facility] GM/DL [facility] RDW 14.6 (H) 11.7 - 14.4 % [facility] Platelets 57 (L) 150 - 450 K/CU [facility] MPV 10.4 9.4 - 12.3 fL [facility] nRBC 0 0 - 0 /100 WBC [facility] % Neutros 60 % [facility] % Lymphs 19 % [facility] % Monos 12 % [facility] % Eos 8 % [facility] % Baso 1 % [facility] # Neutros 2.09 1.56 - 6.13 [facility] # Lymphs 0.67 (L) 1.18 - 3.74 [facility] # Monos 0.43 (H) 0.24 - 0.36 [facility] # Eos 0.28 0.04 - 0.36 [facility] # Baso 0.02 0.01 - 0.08 [facility] Immature 0 0 - 1 % [facility] Granulocytes-Relativ [facility] Specimen Blood Performing Organization Address City/[facility]/Zipcode Phone Number [facility] [address] [place] [address] CENTER Alpha fetoprotein (AFP), tumor marker (04/11/2020 11:13 AM CDT)Only the most recent of3 resultswithin the time period is included. Pathologist Sig [facility] Alpha-Fetoprotein <2.0 <10.0 ng/mL [facility] Specimen Blood Narrative Performed At [place] ID - BS [facility] Performing Organization Address City/[facility]/Zipcode Phone Number [address] [address] CENTER Miscellaneous lab test (02/15/2020 12:29 PM CDT)Only the most recent of2 results within the time period is included. Pathologist Sig nature Scan Result [facility] Specimen Blood Narrative Performed At This result has an attachment that is no t available. Performing Organization Address City/[facility]/Zipcode Phone Number [facility] [address] [place], [place] Magnesium (02/15/2020 12:29 PM CDT)Only the most recent of13 resultswithin the time period is included. Pathologist Sig nature Magnesium 1.8 1.6 - 2.6 mg/dL [facility] Specimen Blood Narrative Performed At [place] ID - LM [facility] Performing Organization Address City/State/Zipcode Phone Number [place] [phone] [place] [address] CENTER RHYTHM STRIP - SCAN [...] analytical performance characteristics have been determined by [facility]. It has not been cleared or approved by FDA. This assay has been validated pursuant to the CLIA regulations and is used for clini steven purposes. Normetanephrine 213 (H) < OR = 148 [facility] Comment: pg/mL INCORPORATED This test was developed and its analytical performance characteristics have been determined by [facility]. It has not been cleared [...] Fractionated Metanephrines for Pheochromocytoma. The J [facility] of Clinical Endocrinology and Metabolism 93 (1),91-95, 2007. For additional information, please refer to http://education.Loop App.[employer]/faq/MetFractFree (This link is being provided for informational/educati onal purposes only.) This test was developed and its analytical performance characteristics have been determined by [facility]. It has not been cleared or approved by FDA. This assay has been validated pursuant to the CLIA regulations and is used for clini steven purposes. Specimen Blood Narrative Performed At Performing Lab [facility] [place] [address] [place] [address] Mark Encarnacion MD, PhD, AMINA Performing Organization Address City/State/Zipcode Phone Number [facility] [place] [address] INCORPORATED [address] [facility] Calcium, Ionized (01/26/2020 3:50 AM CDT)Only the most recent of7 resultswithin the time period is included. Pathologist Sig nature Calcium, Ion 1.11 (L) 1.12 - 1.27 mmol/L [facility] pH, Blood 7.41 [facility] Specimen Blood Performing Organization Address City/[facility]/Zipcode Phone Number [address] [address] CENTER Phosphorus (01/26/2020 3:50 AM CDT)Only the most recent of7 resultswithin the time period is included. Pathologist Sig nature Phosphorus 3.2 2.3 - 4.7 mg/dL [facility] Specimen Blood Narrative Performed At [place] ID - BS [facility] Performing Organization Address City/State/Zipcode Phone Number [address] [address] CENTER Hepatic function panel (01/26/2020 3:50 AM CDT)Only the most recent of13 resultswithin the time period is included. Pathologist Sig nature Protein, Total 5.7 (L) 6.0 - 8.3 gm/dL [facility] Albumin 3.4 (L) 3.5 - 5.0 g/dL [facility] Total Bilirubin 6.9 (H) 0.2 - 1.2 mg/dL [facility] Bilirubin, Direct 2.2 (H) 0.1 - 0.5 mg/dL [facility] Alkaline Phosphatase 58 40 - 150 U/L [facility] AST 36 (H) 5 - 34 U/L [facility] ALT 13 6 - 55 U/L [facility] Specimen Blood Narrative Performed At [place] ID - BS [facility] Specimen moderately icteric Performing Organization Address City/State/Zipcode Phone Number [facility] [address] [place] [address] CENTER Manual Differential (01/25/2020 3:47 AM CDT)Only the most recent of7 results within the time period is included. Pathologist Sig nature % Neutros 66 % [facility] % Lymphs 24 % [facility] % Monos 7 % [facility] % Eos 2 % [facility] % Metamyelo 1 (H) 0 - 0 % [facility] # Neutros 0.92 (L) 1.56 - 6.13 K/ul [facility] # Lymphs 0.34 (L) 1.18 - 3.74 K/ul [facility] # Monos 0.10 (L) 0.24 - 0.36 K/uL [facility] # Eos 0.03 (L) 0.04 - 0.36 K/uL [facility] # Metamyelo 0.01 (H) 0.00 - 0.00 K/uL [facility] Total Counted 100 [facility] Smudge Cells Present [facility] Giant Platelet Present [facility] Anisocytosis 2+ moderate [facility] Macrocytes 2+ moderate [facility] Poikilocytes 2+ moderate [facility] Freddie Cells 2+ moderate [facility] Artifact Present [facility] Platelet Conc Decreased [facility] Specimen Blood Narrative Performed At [place] ID - [id number] [facility] ID - Maria Del Carmen Silvio User comments: Slide comments: Performing Organization Address City/State/Zipcode Phone Number [facility] [address] [place] [address] CENTER Basic Metabolic Panel (01/25/2020 3:47 AM CDT)Only the most recent of10 results within the time period is included. Sodium 140 136 - 145 meq/L [facility] Potassium 3.4 (L) 3.5 - 5.1 meq/L [facility] Chloride 105 98 - 107 meq/L [facility] CO2 25 22 - 29 meq/L [facility] BUN 31 (H) 7 - 21 mg/dL [facility] Creatinine 2.35 (H) 0.57 - 1.25 [facility] mg/dL [facility] Glucose 108 (H) 70 - 105 mg/dL [facility] Calcium 8.7 8.4 - 10.2 [facility] mg/dL [facility] EGFR 21Comment: ESTIMATED mL/min/1.73 sq [facility] GFR IS NOT m [facility] ACCURATE INDEPENDENCE CREATININE CLEARANCE IN PREDICTING GLOMERULAR FILTRATION RATE. ESTIMATED GFR IS NOT APPLICABLE FOR DIALYSIS PATIENTS. Specimen Blood Narrative Performed At [place] ID - PIAYA L [facility] Specimen moderately icteric Performing Organization Address City/State/Zipcode Phone Number [facility] [address] [place] [address] [place] TRANSFUSION SERVICE REPORT - SCAN (01/24/2020 6:00 [...] CDT) Narrative Performed At Epifanio Giles RRT, [facility] 01/24/20 10:52 AM [facility] PFT CHARTING REPORT Infection Control/Hand Hygiene procedure s followed throughout the encounter with patient: Yes Patient Identification Method: Patient n celia verified on armband, and Medical record on armband, Is the order complete?: Yes Account ID#: [id number] Patient Name: Cici Calderon Birthdate: 1955 Age: [...] CDT) Narrative Performed At Epifanio Giles RRT, [facility] 01/24/20 10:52 AM [facility] PFT CHARTING REPORT Infection Control/Hand Hygiene procedure s followed throughout the encounter with patient: Yes Patient Identification Method: Patient n celia verified on armband, and Medical record on armband, Is the order complete?: Yes Account ID#: [id number] Patient Name: Cici Calderon Birthdate: 1955 Age: [...] CDT) Narrative Performed At Epifanio Giles RRT, [facility] 01/24/20 10:52 AM [facility] PFT CHARTING REPORT Infection Control/Hand Hygiene procedure s followed throughout the encounter with patient: Yes Patient Identification Method: Patient n celia verified on armband, and Medical record on armband, Is the order complete?: Yes Account ID#: [id number] Patient Name: Cici Calderon Birthdate: 1955 Age: [...] CDT) Narrative Performed At Janina Meehan RRT [facility] 01/24/20 20 2:39 PM [facility] PFT CHARTING REPORT Infection Control/Hand Hygiene procedure s followed throughout the encounter with patient: Yes Patient Identification Method: Patient n celia verified on armband, and Medical record on armband, Is the order complete?: Account ID#: [id number] Patient Name: Cici Calderon Birthdate: 1955 Age: [...] Post 0 - - Study Date: 01/24/20 Rauhl dy Time: 1020 ASSESSMENT History & Physical [...] ABO A Pos SAFETRACE TX UNIT NUMBER [id number] SAFETRACE TX Status TX_TIMEINCHART SAFETRACE TX Blood Bank Product RED BLOOD CELLS SAFETRACE [place] PRODUCT CODE [id number] SAFETRACE [place] Specimen Other Performing Organization Address City/[facility] Phone Number SAFETRACE [place] B-type Natriuretic Factor (BNP) (01/23/2020 4:32 AM CDT)Only the most recent of 2 resultswithin the time period is included. Pathologist Sig dima BNP 2,179 (H) 0 - 100 pg/mL [facility] Specimen Blood Narrative Performed At [facility] - PIAYA L [facility] MED ICAL CENTER Performing Organization Address City/[facility]/Zipcode Phone Number [facility] MEDICAL [address] [place] [address] CENTER Prepare Leuko-Red PLT (01/22/2020 11:54 PM CDT)Only the most recent of2 results within the time period is included. Pathologist Sig nature Unit ABO A Pos SAFETRACE TX UNIT NUMBER [id number] SAFETRACE TX Status WORK IN PROGRESS SAFETRACE TX Blood Bank Product PLATELETS SAFETRACE TX PRODUCT CODE [id number] SAFETRACE TX Unit ABO O Pos SAFETRACE TX UNIT NUMBER [id number] SAFETRACE TX Status TX_TIMEINCHART SAFETRACE TX Blood Bank Product PLATELETS SAFETRACE TX PRODUCT CODE [id number] SAFETRACE TX Specimen Blood Performing Organization Address [facility] Phone Number SAFETRACE [place] Transfuse Leuko-Red RBC (01/22/2020 2:30 PM CDT)Only the most recent of2 resultswithin the time period is included.Cortisol (01/22/2020 8:23 AM CDT)Only the most recent of2 resultswithin the time period is included. Pathologist Sig nature Cortisol, Total 1.6 (L) 3.7 - 19.4 ug/dL [facility] Specimen Blood Narrative Performed At [place] ID - MITCH [place] [facility] ICAL CENTER Performing Organization Address [facility] Phone Number [address] [address] CENTER ABORH, manual (01/22/2020 4:34 AM CDT) Pathologist Sig nature ABO Grouping A [facility] Rh Factor POS [facility]ICAL [place] Specimen Blood Performing Organization Address [facility] Number [address] [address] Direct AHG (RAMIREZ)/Direct Jewel (01/22/2020 4:34 AM CDT) Pathologist Sig nature Direct AHG-IGG NEGATIVE [facility] Direct AHG-C3B, C3D NEGATVIE [facility] HEALT H [facility] Specimen Blood Performing Organization Address [facility] Phone Number [address] [address] Body fluid culture + gram stain (01/21/2020 4:54 PM CDT) Result No growth [facility] Gram Stain Result <1+ White blood [facility] cells seen [facility] Gram Stain Result No organisms seen [facility] Specimen Body Fluid - Ascites (disorder) Performing Organization Address City/State/Zipcode Phone Number [facility] [address] [place] [address] [place] Body fluid cell count with differential (01/21/2020 4:54 PM CDT) Appearance Hazy (A) Clear [facility] Color Cele (A) Colorless, [facility] RBCs 4,000 (H) <=1 /cu mm [facility] Adjusted WBC Count 86 (H) <=5 /cu mm [facility] Lining Cells 1 <=1 /cu mm [facility] % Segs 7 % [facility] % Lymphs 83 % [facility] % Monos 10 % [facility] % Eos 0 % [facility] % Baso 0 % [facility] Container Body Fluid Sterile Vial [facility] Specimen Body Fluid - Ascites (disorder) Performing Organization Address City/[facility]/Zipcode Phone Number [address] [address] [place] US paracentesis (01/21/2020 4:40 PM CDT) Specimen Narrative Performed At FINAL REPORT [facility] Ultrasound guided paracentesis Clinical History: Ascites. Sedation: None. Tea Taster: Christine Ward PA-C Supervising Physician: Natan Chisholm MD District Branch Manager: None. Estimated Blood Loss: < 1 [...] Report Verified Date/Time: 01/24/2020 09:43:05 Reading Location: [facility] B1 P006J Ultrasoun d Reading Room Procedure Note Interface, External Ris In - 01/24/2020 9:45 AM CDT FINAL REPORT Ultrasound guided paracentesis Clinical History: Ascites. Sedation: None. Tea Taster: Christine Ward PA-C Supervising Physician: Natan Chisholm MD District Branch Manager: None. Estimated Blood Loss: < 1 [...] Verified Date/Time: 01/24/2020 0 9:43:05 Reading Location: [facility] [id number] Ultrasoun d Reading Room Performing Organization Address City/State/Zipcode Phone Number RIS Peripheral Blood Smear - Hold only (01/21/2020 9:31 AM CDT) Pathologist Sig nature Peripheral Smear Save saved [facility] Specimen Blood Performing Organization Address City/State/Zipcode Phone Number [address] [address] [place] Reticulocyte count (01/21/2020 9:31 AM CDT)Only the most recent of2 results within the time period is included. Pathologist Sig nature % Retic 5.3 (H) 0.5 - 1.7 % [facility] Specimen Blood Narrative Performed At [place] [facility] - [id number] [facility] Performing Organization Address [facility]/Zipcode Phone Number [address] [address] [place] XR chest 1 view portable / bedside (01/21/2020 9:10 AM CDT)Only the most recent of2 resultswithin the time period is included. Specimen Narrative Performed At FINAL REPORT [facility] INDICATION: Edema COMPARISON: January 20, 2020 [...] Report Verified Date/Time: 01/21/2020 10:03:32 Reading Location: [facility] y Reading Room Procedure Note Interface, [...] Verified Date/Time: 01/21/2020 1 0:03:32 Reading Location: [facility] Reading Room Performing Organization Address City/[facility] Phone Number GE RIS Metanephrines, 24 hour urine (01/20/2020 10:51 PM CDT) TOTAL VOLUME 1000 mL [facility] Metanephrine 205 90 - 315 [facility] Comment: mcg/24 h INCORPORATED This test was developed and its analytical performance characteristics have been determined by [email or web address]. It has not been cleared or approved by FDA. This assay has been validated pursuant to the CLIA regulations and is used for clini steven purposes. Normetanephrine [phone] [facility] Comment: mcg/24 h INCORPORATED This test was developed and its analytical performance characteristics have been determined by [facility]. It has not been cleared [...] analytical performance characteristics have been determined by [facility]. It has not been cleared or approved by FDA. This assay has been validated pursuant to the CLIA regulations and is used for clini steven purposes. Specimen Urine Narrative Performed At Performing Lab [employer] [facility] [place] [facility] te [address] [place] [address] Mark Encarnacion MD, PhD, AMINA Performing Organization Address City/[facility]/Zipcode Phone Number [facility] [place] [address] INCORPORATED [address] [facility] Catecholamines, Fractionated, 24hr urine (01/20/2020 10:51 PM CDT) TOTAL VOLUME 1000 mL [facility] Epinephrine,24 Hr Ur <2 (L) 2 - 24 [facility] Comment: mcg/24 h INCORPORATED Result below clinical reportable range for this analyt e, which is 2 mcg/L. Reported result was calculated using 2 mcg/L. This test was developed and its analytical performance characteristics have been determined by [facility]. It has not been cleared or approved by FDA. This assay has been validated pursuant to the CLIA regulations and is used for clini steven purposes. Norepinephrine 9 (L) 15 - 100 [facility] Comment: mcg/24 h INCORPORATED This test was developed and its analytical performance characteristics have been determined by [facility]. It has not been cleared or approved by FDA. This assay has been validated pursuant to the CLIA regulations and is used for clini steven purposes. Calculated Total 9 (L) 26 - 121 [facility] E+Ne Comment: mcg/24 h INCORPORATED This test was developed and its analytical performance characteristics have been determined by [facility]. It has not been cleared [...] analytical performance characteristics have been determined by [facility]. It has not been cleared or approved by FDA. This assay has been validated pursuant to the CLIA regulations and is used for clini steven purposes. Creatinine,24 Hr 0.88 0.50 - 2.15 [facility] Urin g/24 h INCORPORATED Specimen Urine Narrative Performed At Performing Lab [facility] [place] [facility] [place] [address] [place] [address] Mark Encarnacion MD, PhD, AMINA Performing Organization Address City/State/Zipcode Phone Number [facility] [place] [address] Type and screen, automated (01/20/2020 8:39 PM CDT)Only the most recent of2 resultswithin the time period is included. Pathologist Sig nature ABO/RH AUTOMATED A POSITIVE [facility] ([facility]) [facility] Ab Scrn NEGATIVE [facility] Specimen Blood Performing Organization Address City/State/Zipcode Phone Number [facility] [address] [place] [address] MR abdomen without IV contrast (01/20/2020 5:54 PM CDT) Specimen Narrative Performed At FINAL REPORT [facility] TECHNIQUE: MRI of the abdomen WITHOUT [...] Verified Date/Time: 01/21/2020 07:51:30 Reading Location: [facility] Reading Room - [place] [address] Procedure Note Interface, External Ris In [...] nsion including large volume ascites P Signed: Jhon Crocker MD Report Verified Date/Time: 01/21/2020 0 7:51:30 Reading Location: [facility] Reading Room - [place] [address] Performing Organization Address City/State/Zipcode Phone Number GE RIS Urinalysis w/Microscopic + Reflex to Culture (01/19/2020 11:19 PM CDT) Color, UA Yellow [facility] Clarity, UA Hazy [facility] Specific [place], 1.017 1.001 - 1.035 [facility] pH, UA 5.5 5.0 - 8.0 [facility] Protein, UA 20 mg/dL (A) Negative [facility] Glucose, UA Negative Negative [facility] Ketones, UA Negative Negative [facility] Bilirubin, UA Negative Negative [facility] Blood, UA Small (A) Negative [facility] Nitrite, UA Negative Negative [facility] Leukocytes, UA Trace (A) Negative [facility] Urobilinogen, UA 0.2 0.2 - 1.0 mg/dL [facility] RBC, UA 1 /HPF [facility] WBC, UA 3 /HPF [facility] Bacteria, UA Rare [facility] Squam Epithel, UA 3 /HPF [facility] Hyaline Casts, UA 3 /LPF [facility] Specimen Source [facility] Specimen Urine Performing Organization Address City/State/Zipcode Phone Number [place] [phone] [place] [address] CENTER Sodium, random urine (01/19/2020 11:19 PM CDT)Only the most recent of3 results within the time period is included. Pathologist Sig nature Sodium Urine <20 meq/L [facility] ICAL [place] Specimen Urine Narrative Performed At Reference Range: No Normals [facility] ID - PIAYA L Performing Organization Address City/State/Zipcode Phone Number [facility] [address] [place] [address] [place] Urinalysis w/Microscopic (01/19/2020 11:19 PM CDT)Only the most recent of2 resultswithin the time period is included. Color, UA Yellow [facility] Clarity, UA Hazy [facility] Specific [place], 1.017 1.001 - 1.035 [facility] pH, UA 5.5 5.0 - 8.0 [facility] Protein, UA 20 mg/dL (A) Negative [facility] Glucose, UA Negative Negative [facility] Ketones, UA Negative Negative [facility] Bilirubin, UA Negative Negative [facility] Blood, UA Small (A) Negative [facility] Nitrite, UA Negative Negative [facility] Leukocytes, UA Trace (A) Negative [facility] Urobilinogen, UA 0.2 0.2 - 1.0 mg/dL [facility] RBC, UA 1 /HPF [facility] WBC, UA 3 /HPF [facility] Bacteria, UA Rare [facility] Squam Epithel, UA 3 /HPF [facility] Hyaline Casts, UA 3 /LPF [facility] Specimen Source [facility] Specimen Urine Narrative Performed At [place] ID - [auto] [facility] ID - tech Performing Organization Address [facility]/Zipcode Phone Number [address] [address] CENTER Blood Culture - Routine (Right Venipuncture) (01/19/2020 9:45 PM CDT)Only the most recent of4 resultswithin the time period is included. Pathologist Sig nature Result No growth in 5 days [facility] Specimen Blood - Entire right upper arm (body str ucture) Performing Organization Address [facility]/Zipcode Phone Number [address] [address] CENTER [id number] PHENOTYP (01/19/2020 9:43 PM CDT) Specimen Blood - Entire right upper arm (body str ucture) Narrative Performed At This result has an attachment that is no t available. Performing Organization Address City/[facility] Phone Number [facility] [address] [place], [place] Blood gas, arterial (01/19/2020 3:44 PM CDT) Pathologist Sig nature pH, Arterial 7.42 7.35 - 7.45 [facility] pCO2, Arterial 36 35 - 45 mmHg [facility] pO2, Arterial 78 (L) 80 - 90 mmHg [facility] O2 Sat, Arterial 96.2 96.0 - 97.0 % [facility] HCO3, Arterial 23 21 - 29 mmol/L [facility] Base Excess, Arterial -1.9 -2.0 - 3.0 [facility] mmol/L [facility] Patient Temperature 36.1 C [facility] FIO2 28.0 % [facility] Specimen Blood, Arterial Performing Organization Address City/[facility]/Zipcode Phone Number [facility] [address] [place] [address] [place] Cryptococcal antigen (01/19/2020 3:04 PM CDT) Cryptococcal Negative Negative, [facility] Antigen, Serum Interference [facility] Specimen Blood Performing Organization Address City/[facility] Phone Number [address] [phone] CENTER Rubeola antibody IgG (01/19/2020 3:04 PM [...] patient. For additional information, please refer to http://education.[employer]/faq/MNJ863 (This link is being provided for informational/ educational purposes only.) Specimen Blood Narrative Performed At Performing Lab [facility] *QDID [facility] [address] [place] [address] Sudhakar Hargrove MD Performing Organization Address [facility] Phone Number [facility] [place] [address] INCORPORATED [address] [facility] Rubella antibody, IgG (01/19/2020 3:04 PM CDT) Pathologist Sig nature Rubella IgG Quant 127.0 (H) <8.0 IU/mL [facility] Specimen Blood Narrative Performed At Rubella IgG Result Interpretation: [facility] </= 7.0 IU/mL Negative - Presumed non-immune 8.0 - 9.9 IU/mL Equivocal >= 10.0 IU/mL Positive - Presumed immune Performing Organization Address City/[facility]/Zipcode Phone Number [facility] [address] [place], [place] [address] CENTER Varicella zoster antibody, IgG (01/19/2020 3:04 PM CDT) Pathologist Sig nature Varicella IgG 3.6 [facility] ME DICAL CENTER Specimen Blood Narrative Performed At VARICELLA ZOSTER RESULT INTERPRETATIONS: [facility] <=0.8 Al Nonreactive: Presumed non-immune to VZV 0.9-1.0 Al Equivocal >=1.1 Al Reactive: Presumed immune to VZV Performing Organization Address [facility]/Zipcode Phone Number [facility] [address] [place] [address] [place] Mumps antibody, IgG (01/19/2020 3:04 PM CDT) [...] At Performing Lab [facility] *QDID [facility] [employer] [address] [place] [address] Sudhakar Hargrove MD Performing Organization Address [facility] Phone Number [facility] [place] [address] INCORPORATED [address] [facility] US breast bilateral (01/19/2020 9:10 AM CDT) Specimen Narrative Performed At FINAL REPORT [employer] COMPLETE ULTRASOUND OF BOTH BREASTS AND AXILLA: [...] Report Verified Date/Time: 01/19/2020 09:52:28 Reading Location: [facility] 10[facility] Flr Mammo Re ading Room Procedure [...] Verified Date/Time: 01/19/2020 0 9:52:28 Reading Location: [facility] 10th Flr Mammo Re ading Room Performing Organization Address City/[facility] Phone Number RIS Aldosterone (01/19/2020 4:11 AM CDT) Aldosterone 22 ng/dL [facility] Comment: INCORPORATED Adult Reference Ranges for Aldosterone: Upright 8:00-10:00 am < or = 28 ng/dL Upright 4:00-6:00 pm < or = 21 ng/dL Supine 8:00-10:00 am 3-16 ng/dL This test was developed and its analytical performance characteristics have been determined by [facility]. It has not been cleared or approved by FDA. This assay has been validated pursuant to the CLIA regulations and is used for clini steven purposes. Specimen Blood Narrative Performed At Performing Lab [facility] E[facility] [address] [place] [address] Mark Encarnacion MD, PhD, AMINA Performing Organization Address City/State/Zipcode Phone Number [facility] [place] [address] INCORPORATED [address] [facility] Renin, plasma (01/19/2020 4:11 AM CDT) PRA,LC/MS/MS 1.51 0.25 - 5.82 [facility] Comment: ng/mL/h INCORPORATED This test was developed and its analytical performance characteristics have been determined by [facility]. It has not been cleared or approved by FDA. This assay has been validated pursuant to the CLIA regulations and is used for clini steven purposes. Specimen Blood Narrative Performed At Performing Lab [facility] EZ [facility] [place] te [address] [place] [address] Mark Encarnacion MD, PhD, AMINA Performing Organization Address City/State/Zipcode Phone Number [facility] [place] [address] INCORPORATED [address] [facility] [place] abdomen without IV contrast (01/19/2020 12:40 AM CDT) Specimen Narrative Performed At FINAL REPORT [employer] TECHNIQUE: CT of the abdomen WITHOUT [...] Verified Date/Time: 01/19/2020 08:09:04 Reading Location: [facility] Reading Room - [place] [address] Procedure Note Interface, External Ris In - [...] Verified Date/Time: 01/19/2020 0 8:09:04 Reading Location: [facility] Reading Room - [place] [address] Performing Organization Address City/State/Zipcode Phone Number [employer] US renal complete (01/19/2020 12:20 AM CDT) Specimen Narrative Performed At FINAL REPORT [facility] [employer] Ultrasound of the Kidneys Clinical History: [...] Date/Time: 01/19/2020 0 1:26:59 Performing Organization Address City/[facility] Phone Number [facility] Protein, random urine (01/18/2020 8:49 PM CDT) Pathologist Sig nature Protein, Urine 45 (H) 0 - 14 mg/dL [facility] Specimen Urine - Urine, Sterile Collection Narrative Performed At [place] ID - EDWIN B [facility] MED ICAL [place] Performing Organization Address [facility] Phone Number [address] [address] [place] Creatinine, random urine (01/18/2020 8:49 PM CDT)Only the most recent of2 resultswithin the time period is included. Pathologist Sig nature Creatinine, Ur 181.3 mg/dL [facility] M EDICAL [place] Specimen Urine - Urine, Sterile Collection Narrative Performed At Reference Range: No Normals [facility] [place] ID - EDWIN B Performing Organization Address [facility] Phone Number [address] [address] [place] Eosinophil smear (01/18/2020 8:49 PM CDT) Pathologist Sig nature Eosinophil Smear Rare EOS =less No EOS seen [facility] than 5% WBCs [facility] seen are EOS (A) [place] Specimen Urine - Urine, Sterile Collection Performing Organization Address [facility] Phone Number [address] [address] [place] Myocardial Perfusion Pet/CT (Rest & Stress) (01/18/2020 9:20 AM CDT) Specimen Narrative Performed At FINAL REPORT GE RIS PROCEDURE: MYOCARDIAL PERFUSION PET IMAG ING (Rest/Stress) CPT CODE: 13104 INDICATION: Evaluation for liver transpl ant CARDIOVASCULAR [...] Report Verified Date/Time: 01/18/2020 12:45:40 Reading Location: [address] Reading Room Procedure Note Interface, External Ris In - 01/18/2020 12:47 PM CDT FINAL REPORT PROCEDURE: MYOCARDIAL PERFUSION PET IMAG ING (Rest/Stress) CPT CODE: 70850 INDICATION: Evaluation for liver transpl ant CARDIOVASCULAR [...] Verified Date/Time: 01/18/2020 1 2:45:40 Reading Location: [address] Reading Room Performing Organization Address City/State/Zipcode [...] on 01/19/2020 7:03:55 AM Performing Organization Address City/State/[facility] Phone Number GE MUSE ECG 12 lead (01/18/2020 8:46 AM CDT)Only the most recent of2 resultswithin the time period is included. Specimen Narrative Performed At Ventricular Rate 62 BPM GE MUSE Atrial Rate 62 BPM P-R Interval 138 ms QRS Duration 86 ms Q-T Interval 452 ms QTC Calculation(Bazett) 458 ms P [place] 59 degrees R [place] 32 degrees T [place] 56 degrees Normal sinus rhythm Low voltage [...] 452 ms QTC Calculation(Bazett) 458 ms P [place] 59 degrees R [place] 32 degrees T [place] 56 degrees Normal sinus rhythm Low voltage QRS Nonspecific ST abnormality 17 JAN 2020 11:05 Nonspecific T wave abnormality Nonspecif ic T wave abnormality, improved in QT has shortened Confirmed by MD FARHAT, JESSIE ([id number]) on 01/18/2020 2:19:38 PM Performing Organization Address City/[facility] Phone Number GE MUSE T Spot TB [...] is no t available. Performing Organization Address City/State/[facility] Phone Number [facility] [address] [place] [address] LAB[address]ATOR[address] REPORT OF PROCEDURE - [...] nature Case Report Surgical Pathology Report Case: [id number] [facility] Authorizing Provider: Sylvie George MD Collected: 01/17/2020 08:15 AM [facility] Ordering Location: [address] Received: 01/17/2020 01:50 PM MEDICAL [facility]ENTER Service Pathologist: Humaira Mendez MD Specimen: Duodenum, bio psy ADDENDUM THIS ADUODENUMIS ISSUED TO R EPORT THE FINDINGS IN THE DEEPER LEVELS OF THE BIOPSY AND GIVE THE FINAL DIAGNOSIS: [facility] ST PHILIP Addendum [facility] electronically signed DUODENUM, ENDOSCOPIC BIOPSY: MEDICAL PARVIN TER by Humaira Mendez - ECTATIC VESSELS IN THE LAMINA PROPRIA, SUGGESTIVE OF PORTAL DUODENOPATHY MD Siva on - NO FEATURES OF CELIAC DISEASE SEEN 01/19/2020 at 4:12 PM - NO GRANULOMAS, DYSPLASIA OR MALIGNANCY SEEN DIAGNOSIS DUODENUM, ENDOSCOPIC BIOPSY: [facility] Electronically signed - SUPERFICIAL FRAGMENTS OF SMALL BOWEL MUCOSA WITH GASTRIC FOVEOLAR METAPLASIA [facility] by [facility]erm[facility]quezC[facility] South MD Siva o n 01/18/2020 at 3 :50 PM Signing Pathologist Direct Phone Line: CPT Code(s) 29079 [facility] CLINICAL HISTORY Procedure: upper endoscopy, biopsy and colonosc opy [facility]IC[facility]INT[facility]S Pre and postop diagnosis: anemia [facility] SPECIMEN SOURCE A. Duodenum; biopsy [facility] GROSS DESCRIPTION A. The specimen is [facility] received in [facility] formalin [facility] with the patient's name, accession number and "duodenum" and consists of one garduno-pink mucosal-covered pieces of tissue measuring 0.3 x 0.2 x 0.1 cm. The specimen is submitted entirely following filtration in a cassette A1. HS/pl MICROSCOPIC PERFORMED [facility] Specimen Tissue - Duodenal structure (body struct ure) Performing Organization Address City/[facility] Phone Number [address] [address] CENTER Lactate dehydrogenase (LDH) (01/16/2020 12:24 PM CDT) Pathologist Sig nature LDH 250 (H) 125 - 220 U/L [facility] Specimen Blood Narrative Performed At [facility] - TUAN C [facility] Performing Organization Address City/[facility] Phone Number [address] [address] CENTER Vitamin B12 and Folate (01/16/2020 11:25 AM CDT) Pathologist Sig nature Vitamin B12 1,107 (H) 213 - 816 pg/mL [facility] Folate 3.40 (L) >=7.00 ng/mL [facility] Specimen Blood Narrative Performed At [facility] - NTP [facility] Performing Organization Address City/[facility] Phone Number [address] [address] [place] HIV-1 Antigen with HIV-1/2 Antibody (01/16/2020 11:25 AM CDT) Pathologist Sig nature HIV-1 Antigen with Nonreactive Nonreactive [facility] HIV 1&2 Antibody [facility] Specimen Blood Narrative Performed At [facility] - T[facility]AN C [facility] Performing Organization Address City/[facility]/Zipcode Phone Number [address] [address] C[place] Haptoglobin (01/16/2020 11:25 AM CDT) Pathologist Sig nature Haptoglobin <8 (L) 14 - 258 mg/dL [facility] Specimen Blood Narrative Performed At [facility] - T[facility]AN C [facility] Performing Organization Address City/[facility]/Zipcode Phone Number [facility] [address] [place] [address] CENTER US abdominal with doppler (01/16/2020 6:30 AM CDT) Specimen Narrative Performed At FINAL REPORT [facility] ULTRASOUND ABDOMEN COMPLETE, ULTRASOUND DUPLEX DOPPLER HISTORY: [...] Report Verified Date/Time: 01/16/2020 07:32:01 Reading Location: [facility] [address] [place] [address] Reading Room Procedure Note Interface, External Ris [...] Verified Date/Time: 01/16/2020 0 7:32:01 Reading Location: [facility] B1 C013T [facility] Reading Room Performing Organization Address City/State/Zipcode Phone Number [facility] Drug screen, urine, transplant (01/15/2020 9:52 PM CDT) Specimen Urine Narrative Performed At This result has an attachment that is no t available. Performing Organization Address City/State/Zipcode Phone Number [place] [phone] [place] [address] Blood typing, automated - - at seperate draw time from initial type and screen (01/15/2020 6:16 PMCDT) Pathologist Sig nature ABO/RH AUTOMATED A POSITIVE [facility] (BEREBECCA) [facility] Specimen Blood Performing Organization Address City/State/Zipcode Phone Number [facility] [address] [place] [address] CT chest without IV contrast (01/15/2020 5:54 PM CDT) Specimen Narrative Performed At FINAL REPORT RIS CT of the chest, without contrast [...] Report Verified Date/Time: 01/15/2020 17:57:54 Reading Location: [facility] C013X [facility] Reading Room Procedure Note Interface, External [...] Verified Date/Time: 01/15/2020 1 7:57:54 Reading Location: [place] [id number] [facility] Reading Room Performing Organization Address City/State/Zipcode Phone Number [facility]IS XR chest 2 views (01/15/2020 4:57 PM CDT) Specimen Narrative Performed At FINAL REPORT [facility] History: Cirrhosis, liver transplant shama luation [...] Report Verified Date/Time: 01/15/2020 17:16:49 Reading Location: [facility] C013T [facility] Reading Room Procedure Note [...] Verified Date/Time: 01/15/2020 1 7:16:49 Reading Location: [address] [facility] Reading Room Performing Organization Address City/State/Zipcode Phone Number RIS XR mandible min 4 views (01/15/2020 4:39 PM CDT) Specimen Narrative Performed At FINAL REPORT [facility] MANDIBLE 4 VIEWS HISTORY: Cirrhosis, liver [...] Report Verified Date/Time: 01/15/2020 17:22:12 Reading Location: [address] [facility] Reading Room Procedure Note Interface, External [...] Verified Date/Time: 01/15/2020 1 7:22:12 Reading Location: [address] [place] Reading Room Performing Organization Address City/State/Zipcode Phone Number GE RIS Mitochondria M2 Antibody (IgG) (01/15/2020 4:17 PM CDT) Mitochondria M2 Ab <20.0 See Note: U [facility] Comment: INCORPORATED Reference Range: NEGATIVE: < OR = 20.0 EQUIVOCAL: 20.1-24.9 POSITIVE: > OR = 25.0 Specimen Blood Narrative Performed At Performing Lab [facility] EZ [facility]u [facility] [address] [place] [address] Mark Encarnacion MD, PhD, AMINA Performing Organization Address City/[facility]/Zipcode Phone Number [facility] [place] [address] INCORPORATED [address] [facility] Iron, TIBC, % sat. (without ferritin) (01/15/2020 4:17 PM CDT) Pathologist Sig nature Iron 144.0 40.0 - 160.0 [facility] ug/dL [facility] TIBC 129 (L) 250 - 450 ug/dL [facility] Iron % Saturation 112 (H) 20 - 55 % [facility] Specimen Blood Narrative Performed At [place] - DB [facility] Performing Organization Address [facility] Phone Number [address] [address] C[place] Hepatitis C antibody (01/15/2020 4:17 PM CDT) Pathologist Sig nature Hepatitis C Ab Nonreactive Nonreactive [facility] Specimen Blood Narrative Performed At [facility] - DB [facility] Performing Organization Address [facility]/Zipcode Phone Number [address] [address] CENTER Cytomegalovirus antibody, IgM (01/15/2020 4:17 PM CDT) Pathologist Sig nature CMV IGM Negative Negative, Equivocal [facility] Specimen Blood Narrative Performed At CMV IgM Result Interpretation: [facility] </= 0.8 Al Negative 0.9-1.0 Al Equivocal >/= 1.1 Al Positive Performing Organization Address [facility] Phone Number [facility] [address] [place] [address] CENTER Actin (Smooth Muscle) Antibody, [...] Lab [facility] EZ [facility] [place] [address] [place] [address] Mark Encarnacion MD, PhD, AMINA Performing Organization Address [facility] Phone Number [facility] [place] [address] INCORPORATED [address] [facility] [id number] (01/15/2020 4:17 PM CDT) Pathologist Sig nature A-1 Antitrypsin 121.20 90.00 - 200.00 [facility] mg/dL [facility] Specimen Blood Narrative Performed At [facility] - DB [facility] Performing Organization Address City/[facility]/Zipcode Phone Number [facility] [address] [place] [address] CENTER Hepatitis A antibody, IgM (01/15/2020 4:17 PM CDT) Pathologist Sig nature Hep A IgM Nonreactive Nonreactive [facility] Specimen Blood Narrative Performed At [facility] - DB [facility] Performing Organization Address City/[facility]/Zipcode Phone Number [facility] [address] [place] [address] CENTER Carbohydrate antigen 19-9 (CA [...] Narrative Performed At Performing Lab [facility] EZ [facility] [place] [address] [place] [address] Mark Encarnacion MD, PhD, AMINA Performing Organization Address [facility] Phone Number [facility] [place] [address] INCORPORATED [address] [address] [facility] Ceruloplasmin (01/15/2020 4:17 PM CDT) Pathologist Sig nature Ceruloplasmin 21 18 - 53 mg/dL [facility] JERAMY Specimen Blood Narrative Performed At Performing Lab [facility] *BEATRIZ [facility], [address] [place] [phone] Jorje Jauregui MD, PhD Performing Organization Address [facility] Phone Number [facility] [place] [address] INCORPORATED [address] [employer] Zinc (01/15/2020 4:17 PM CDT) Zinc 39 (L) 60 - 130 [facility] Comment: mcg/dL INCORPORATED This test was developed and its analytical performance characteristics have been determined by [employer] [facility]. It has not been cleared or approved by [facility] FDA. This assay has been validated pursuant to the CLI A regulations and is used for clinical purposes. Specimen Blood Narrative Performed At Performing Lab [facility] *BEATRIZ [facility], [address] [place] [phone] Jorje Jauregui MD, PhD Performing Organization Address [facility] Phone Number [facility] [place] [address] INCORPORATED [address] [address] [facility] Hepatitis B core antibody, IgM (01/15/2020 4:17 PM CDT) Pathologist Sig nature Hep B C IgM Nonreactive Nonreactive [facility] Specimen Blood Narrative Performed At [facility] - DB [facility] Performing Organization Address City/State/Zipcode Phone Number [address] [address] CENTER EBV-VCA antibody, IgM (01/15/2020 4:17 PM CDT) GABRIEL CHING VIRAL Negative Negative, Equivocal [facility] CAPSID ANTIGEN IGM [facility] Specimen Blood Narrative Performed At Gabriel Ching Viral Capsid Antigen IgM Result [facility] Interpretation: </= 0.8 Al Negative 0.9-1.0 Al Equivocal >/= 1.1 Al Positive Performing Organization Address City/[facility] Phone Number [address] [address] [place] EBV-VCA antibody, IgG (01/15/2020 4:17 PM CDT) GABRIEL CHING VIRAL Positive (A) Negative, [facility] CAPSID ANTIGEN IGG Equivocal [facility] Specimen Blood Narrative Performed At Gabriel Ching Viral Capsid Antigen IgG Result [facility] Interpretation: </= 0.8 Al Negative 0.9-1.0 Al Equivocal >/= 1.1 Al Positive Performing Organization Address City/[facility]/Zipcode Phone Number [address] [address] [place] Hepatitis B core antibody, total (01/15/2020 4:17 PM CDT) Pathologist Sig nature Hep B Core Total Ab Nonreactive Nonreactive [facility] Specimen Blood Narrative Performed At [facility] - [place] F [facility] Performing Organization Address City/State/Zipcode Phone Number [address] [address] CENTER Vitamin D, 25-Hydroxy (01/15/2020 4:17 PM CDT) Pathologist Sig nature Vitamin D 25-Hydroxy 6.2 (L) 6.6 - 49.9 ng/mL [facility] Specimen Blood Narrative Performed At Effective 05/07/2017: Reference Range Brianna longoria [facility] New: 6.6-49.9 ng/mL Previous: 13.0-47.8 ng/mL Recommended Vitamin D Target Range: 30.0-40.0 ng/mL [facility] - DB Performing Organization Address City/[facility]/Zipcode Phone Number [address] [address] CENTER RPR (01/15/2020 4:17 PM CDT) Pathologist Sig nature RPR Nonreactive Nonreactive [facility] Specimen Blood Performing Organization Address [facility] Phone Number [address] [address] CENTER Hepatitis B surface antibody (01/15/2020 4:17 PM CDT) Pathologist Sig nature Hep B S Ab 25.0 (H) <8.0 mIU/mL [facility] Specimen Blood Narrative Performed At [facility] - DB [facility] Performing Organization Address [facility] Phone Number [address] [address] CENTER Hepatitis B surface antigen (01/15/2020 4:17 PM CDT) Pathologist Sig nature HBsAg Screen Nonreactive Nonreactive [facility] Specimen Blood Narrative Performed At Specimen is considered negative for HBsAg. [facility] Performing Organization Address [facility] Phone Number [address] [address] CENTER Cytomegalovirus antibody, IgG (01/15/2020 4:17 PM CDT) CYTOMEGALOVIRUS, Positive (A) Negative, [facility] IGG Equivocal [facility] Specimen Blood Narrative Performed At CMV IgG Result Interpretation: [facility] </= 0.8 Al Negative 0.9-1.0 Al Equivocal >/=1.1 Al Positive Performing Organization Address [facility] Phone Number [address] [address] [place] aPTT (01/15/2020 4:17 PM CDT) Pathologist Sig nature PTT 36.8 (H) 22.5 - 36.0 seconds [facility] Specimen Blood Performing Organization Address [facility] Phone Number [address] [address] [place] Fibrinogen (01/15/2020 4:17 PM CDT) Pathologist Sig nature Fibrinogen 114 (L) 225 - 434 mg/dl [facility] Specimen Blood Performing Organization Address [facility] Phone Number [address] [phone] [place] Anti-Nuclear Antibody (REILLY) (01/15/2020 4:17 PM CDT) Pathologist Sig nature REILLY Negative Negative [facility] ICAL [place] Specimen Blood Narrative Performed At Test performed by IFA method. [facility] Test performed by IFA method. Performing Organization Address [facility] Phone Number [address] [address] CENTER T3 (01/15/2020 4:17 PM CDT) Pathologist Sig nature T3, Total 51 48 - 159 ng/dL [facility] Specimen Blood Narrative Performed At This result has an attachment that is no t available. Performing Organization Address [facility] Phone Number [facility] [address] [facility] [place] Transferrin (01/15/2020 4:17 PM CDT) Pathologist Sig nature Transferrin 102 (L) 174 - 382 mg/dL [facility] Specimen Blood Narrative Performed At [place] - DB [facility] Specimen moderately icteric Performing Organization Address City/[facility] Phone Number [address] [address] CENTER TSH (01/15/2020 4:17 PM CDT) Pathologist Sig nature TSH 5.549 (H) 0.350 - 4.940 uIU/mL [facility] Specimen Blood Narrative Performed At [facility] - DB [facility] ICAL [place] Performing Organization Address City/[facility] Phone Number [address] [address] CENTER T4 (01/15/2020 4:17 PM CDT) Pathologist Sig nature T4, Total 4.3 (L) 4.9 - 11.7 ug/dL [facility] Specimen Blood Narrative Performed At [facility] - NTP [facility] Performing Organization Address [facility] Phone Number [address] [address] CENTER Hemoglobin A1c (01/15/2020 4:17 PM CDT) Pathologist Sig nature Hemoglobin A1C <3.8 (L) 4.3 - 6.1 % [facility] Specimen Blood Performing Organization Address City/[facility] Phone Number [address] [address] CENTER Ferritin (01/15/2020 4:17 PM CDT) Pathologist Sig nature Ferritin 489.86 (H) 5.00 - 275.00 ng/mL [facility] Specimen Blood Narrative Performed At [facility] - NTP [facility] ICAL [place] Performing Organization Address City/[facility]/Zipcode Phone Number [address] [address] CENTER Carcinoembryonic Antigen (CEA) (01/15/2020 4:17 PM CDT) Pathologist Sig nature CEA, SERUM 7.9 (H) 0.0 - 5.0 ng/mL [facility] Specimen Blood Narrative Performed At [facility] - DB [facility] Performing Organization Address [facility] Phone Number [address] [address] CENTER Ethanol (01/15/2020 4:17 PM CDT) Pathologist Sig nature Ethanol Lvl <10 <=10 mg/dL [facility] Specimen Blood Narrative Performed At [facility] - DB [facility] Performing Organization Address [facility] [place] [address] [place] 2D Echo W/Doppler(CW/PW/Color) (01/15/2020 2:45 PM CDT) Pathologist Sig nature Ejection Fraction [facility] Specimen Narrative Performed At Transthoracic Echocardiography Report (T TE) [facility] Demographics Patient Name CICI CALDERON Date of Study 01/15/2020 ALYSE Gender Female Visit Number [id number] Race Unknown Room Number 1515 Number Date of 1955 Referring Physician Ren Hernandez MD Age 64 year(s) Pharmacogeneticist Lisa Bautista [facility] [...] Study 01/15/2020 ALYSE Gender Female Visit Number [id number] Race Unknown [place] [address] Number Date of 1955 Referri Physician Ren [...] l/min/m^2 Performing Organization Address City/State/Zipcode Phone Number [facility] Carotid doppler bilateral (01/15/2020 2:41 PM CDT) Pathologist Sig nature Ejection Fraction [facility] ECHO [facility] Specimen Impressions Performed At Right Impression [facility] 1. The internal, common and external carotid [...] Performed At LAB - Carotid Duplex Study [facility] ECHO [facility] Demographics Patient Name CICI CALDERON Date of Study 01/15/2020 ALYSE Age 64 Visit Number [id number] Gender Female Accession Number [id number] Date of 1955 [facility] Physician Pharmacogeneticist Herbert Lechuga Interpreting Chelsea Resendez T Physician ADRIAN Procedure Type of Study: [...] Study 01/15/2020 ALYSE Age 64 Visit Number [id number] Gen margarita Female Accession Number [id number] Ramirez e of 1955 Referring Eliecer Shady Todd m Number 1515 Physician Pharmacogeneticist Herbert Lechuga Int erpreting Chelsea Resendez, T [...] Measurements:ICAPSV/CCAPS V 0.96.ICAEDV/CCAEDV 1.52. Performing Organization Address City/[facility] Phone Number [facility] MKCKESSON CPACS Hepatitis panel, acute (01/15/2020 8:32 AM CDT) Pathologist Sig nature Hep A IgM Nonreactive Nonreactive [facility] Hep B C IgM Nonreactive Nonreactive [facility] Hepatitis C Ab Nonreactive Nonreactive [facility] HBsAg Screen Nonreactive Nonreactive [facility] Specimen Blood Narrative Performed At [place] ID - NTP [facility] Performing Organization Address City/[facility]/Zipcode Phone Number [facility] [address] [place] [address] CENTER Ammonia (01/15/2020 8:32 AM CDT) Pathologist Sig nature Ammonia 19 18 - 72 mol/L [facility] Specimen Blood Narrative Performed At [place] ID - NTP [facility] Performing Organization Address City/[facility]/Zipcode Phone Number [address] [address] CENTER Uric acid (01/15/2020 3:56 AM CDT) Pathologist Sig nature Uric Acid 15.7 (H) 2.6 - 7.2 mg/dL [facility] Specimen Blood Narrative Performed At [place] ID - NTP [facility] Specimen moderately icteric Performing Organization Address [facility] Phone Number [address] [address] CENTER Gamma Glutamyl Transferase (GGT) (01/15/2020 3:56 AM CDT) Pathologist Sig nature GGT 15 9 - 64 U/L [facility] [place] Specimen Blood Narrative Performed At [place] ID - NTP [facility] Specimen moderately icteric Performing Organization Address [facility] Phone Number [address] [address] [place] Lipid panel (01/15/2020 3:56 AM CDT) Pathologist Sig nature Triglycerides 86 mg/dL [facility] [place] Cholesterol 101 mg/dL [facility] [place] HDL 12 mg/dL [facility] [place] LDL Calculated 72 mg/dL [facility] [place] Specimen Blood Narrative Performed At Triglyceride Reference Range: [facility] Low Risk <150 Borderline 150-199 High Risk 200-499 Very High Risk >=500 Cholesterol Reference Range: Low Risk <200 Borderline 200-239 High Risk >240 HDL Cholesterol Reference Range: Low Risk >=60 High Risk <40 LDL Cholesterol Reference Range: Optimal <100 Near Optimal 100-129 Borderline 130-159 High 160-189 Very High >=190 [place] ID - NTP Specimen moderately icteric Performing Organization Address [facility] Phone Number [address] [address] [place] SARS-CoV2/RT-PCR (Asymptomatic ONLY) (01/14/2020 7:28 PM CDT) SARS-COV2/RT-PCR Not Detected Not Detected, [facility] Negative [facility] SARS-COV-2 [facility] PERFORMING LAB [facility] Specimen Other - Nasopharyngeal wall structure (b arsenio structure) Narrative Performed At Negative results do not preclude SARS-CoV-2 [facility] infection and should not be used as [...] the Act. Fact Sheet for Healthcare Providers: https://www.[employer]/Documents/Xpert%20Xpre ss%20SARS%20CoV-2/Fact%20Sheets/3023802%20SAR S-COV-2%20HEALTHCARE%20PROVIDERS%20FACT%20SHEE T.pdf Fact Sheet for Healthcare Patients: https://www.[employer]/Documents/Xpert%20Xpre ss%20SARS%20CoV-2/Fact%20Sheets/3023801%20SAR S-COV-2%20PATIENT%20FACT%20SHEET.pdf Performing Laboratory: [facility] [address] [place] [address] Performing Organization Address City/State/Zipcode Phone Number [facility] [address] [place] [address] CENTER after 08/13/2019 Insurance Payer Benefit Plan / Subscriber ID Effective Dates Phone Addre ss Type Group AETNA - AETNA MEDICARE [id number]-Matilda [phone] MEDICARE MGD HMO POS PPO t [id number] [facility] [id number] Advance Directives For more information, please contact: [phone] Code Status Date Activated Date Inactivated Comments Full Code 01/14/2020 8:09 PM 01/26/2020 8:41 PM This code status was determined by: Patient
--- OUTSIDE RECORDS SUMMARY | 2020-08-13 05:12 | XMS REPORT | Continuity of Care Document ---
:1955 Author Organization [facility] t Address [address] [place] [address] Care Team Providers Name Role Phone Nahun Leonard MD Primary Care Physician Martinez HARRELL Attending Clinician Unavailable Rl Attending Clinician Unavailable Nhi Montgomery MD Attending Clinician Marcus ESPINOSA Attending Clinician Unavailable Janis ESPINOSA Attending Clinician Unavailable Baltazar Hernandez Attending Clinician Unavailable Mayank ESPINOSA, R Attending Clinician Unavailable Casey Attending Clinician Unavailable Alfonso Attending Clinician Unavailable [...] MD Attending Clinician Joshua ADRIAN Attending Clinician Niarj MARCUS Attending Clinician Unavailable Markus ESPINOSA Attending Clinician Unavailable TONIA STONE Admitting Clinician Unavailable Joshua ADRIAN Admitting Clinician Payers Payer Name Policy Type Policy Number Effective Date Expiration Date Holli plunkett AETNA - [id number] [address] [facility] MGD 00:00:00 - Medical CAREAETNA Center MEDICARE HMO POS [id number] [address] Problems Condition Condition Condition Status Onset Resolution Last Treating Co mments Source Name Details Category Date Date Treatment Clinician Date Awaiting Awaiting Disease Active [facility] - transplant transplant 00:00: Me dical status status 00 Center Acute Acute Disease Active [facility] liver liver 6-19 [facility] - failure failure 00:00: Medical 00 Page Elevated Elevated Disease Active [facility] serum serum 616 Lu - creatinine creatinine 00:00: Me dical 00 [...] St mass, left mass, left 2 Assessmen - 00:00: t & Plan: Medical [...] Allergy 09-01 [facility] - 00:00: Medical 00 Page Levoflox Drug Active Other (See 2015-[address] acin Intolera Comments) 09-01 and - nce 00:00: diarrhea Medical 00 Center Sulfa Drug Active Rash 2015-[address] [facility] (Sulfona Allergy 09-01 [facility] - mide 00:00: Medical Antibiot 00 Center ics) Tetracyc Drug Active Hives 2015-[address] [facility] lines Allergy 09-01 [facility] - 00:00: Medical 00 Page Tetracyc Adverse Active hives [facility] line HCl Reaction [facility] Levaquin Adverse Active vomiting/jocy C [facility] Reaction rrhea [facility] Erythrom Adverse Active vomiting/jocy C [facility] ycin Reaction rrhea [facility] - [facility] Family History Family Member Diagnosis Comments Start Date Stop Date Source Natural brother Diabetes [facility] Natural brother Hypertension [facility] Natural brother Arthritis [facility] Natural brother COPD [facility] Natural father Diabetes [facility] Natural father Heart disease [facility] Natural mother Diabetes [facility] Natural mother Heart disease [facility] Natural sister Cancer [facility] Social History Social Habit Start Date Stop Date Quantity Comments Source Sex Assigned At [facility] Tobacco use and 2020-04-11 2020-04-11 Never used [facility] - exposure 00:00:00 00:00:00 [facility] Alcohol intake 2020-04-11 2020-04-11 Current drinker [facility] Holli carcamo [facility] - 00:00:00 00:00:00 of alcohol [facility] (finding) Alcohol Comment 2016-07-01 2016-07-01 social last drink Mark Smiley [facility] - 00:00:00 00:00:00 06/15/16 [facility] Smoking Status Start Date Stop Date Source Former smoker 2020-04-11 00:00:00 2020-04-11 00:00:00 [facility] Medications Ordered Filled Start Stop Current Ordering Indication Dosage Frequency Signature Comments Components Source Medication Medication Date Date Medication? Clinician (SIG) Name Name calcitrioL Yes Cirrhosis .5ug QD Take 1 [facility] (ROCALTROL) 1-05 of liver capsule L ukes - 0.5 MCG 00:00: without (0.5 mcg Med ical capsule 00 ascites, total) by Sina ter unspecified mouth hepatic daily. cirrhosis type (HCC) ergocalcife 2019-07- Yes Vitamin D [id number] Q7D Take [address] rol 2-18 1218 deficiency capsule [facility] - (ERGOCALCIF 00:00: 23:59 (50,000 Me dical MARIN) 1,250 00 :00 Units Center mcg (50,000 total) by unit) mouth once capsule a week. spironolact Yes 25mg QD Take [address] one 9-15 by mouth [facility] - (ALDACTONE) 09:45: daily. Medi steven 25 MG 26 Center tablet magnesium Yes Magnesium 400mg QD Take [address] oxide -15 deficiency tablet [facility] - (MAG-OX) 00:00: (400 mg Medica l 400 mg 00 total) by Center (241.3 mg mouth magnesium) daily. tablet folic acid 2020- No Cirrhosis 1mg QD Take [address] (FOLVITE) 1 9-15 09-15 of liver tablet (1 [facility] - MG tablet 00:00: 23:59 without mg total) Medical 00 :00 ascites, by mouth Center unspecified daily. hepatic cirrhosis type (HCC) calcitrioL 2020- No Cirrhosis .5ug QD Take [address] (ROCALTROL) 04-11 of liver capsule [facility] - 0.5 MCG 00:00: 00:00 without (0.5 mcg Me dical capsule 00 :00 ascites, total) by Sina ter unspecified mouth hepatic daily. cirrhosis type (HCC) ergocalcife 2019- No Vitamin D [id number] Q7D Take [address] rol 04-11 deficiency capsule [facility] - (ERGOCALCIF 00:00: 00:00 (50,000 Me dical MARIN) 1,250 00 :00 Units Center mcg (50,000 total) by unit) mouth once capsule a week. ranitidine 2019- No Screening 150mg Take 150 [...] 2 (two) times daily. ergocalcife 2019- No [id number] Q7D Take [address] rol [...] 24 :00 times Center daily . spironolact 2020- No 25mg QD Take [address] one 01-25 by mouth [facility] - (ALDACTONE) 16:18: 00:00 daily. Med ical 25 MG 24 :00 Center tablet calcitrioL 2020- No .5ug QD Take 0.[address] (ROCALTROL) 01-25 mcg by [facility]ukes - 0.5 MCG 16:16: 00:00 mouth Medical capsule 08 :00 daily. Center rifAXIMin 0 Yes 550mg Q.5D Take 1 [facility] t 550 mg Tab 01-25 tablet [facility]ukes - 00:00: (550 mg Medical 00 total) by Center mouth 2 (two) times daily. lactulose 0 Yes 20g Q.[id number] Take [address] (CHRONULAC) 01-25 [id number] mLs (20 g [facility]ukes - 20 gram/30 00:00: 3D total) by [place] dical mL solution 00 mouth 3 Cente [...] al 400 mg 00 :00 total) by Page (241.3 mg mouth magnesium) daily. tablet midodrine 2019- 2020- No 2.5mg Q.[id number] Take [address] (PROAMATINE 01-25 [id number] tablet [facility] - ) 2.5 MG 00:00: [...] [facility] Sulfate HFA Sulfate HFA 4-09 [place] needed [facility] - 00:00: [facility] Cimetidine Cimetidine Yes Mitzy [address] [place] as needed [facility] Calcitriol Calcitriol Yes Mitzy [address] [place] [facility] Lactulose Lactulose Yes Mitzy [address] [place] [facility] Xifaxan Xifaxan Yes Mitzy [address] [place] [facility] Folic Acid Folic Acid Yes Mitzy [address] [place] [facility] Spironolact Spironolact Yes Mitzy [address] one one [place] [facility] Vitamin D2 Vitamin D2 Yes Mitzy [address] [place] [facility] MagOx 400 MagOx 400 Yes Mitzy [address] [place] with food [facility] Tramadol Tramadol Yes Mitzy [address] HCl HCl [place] as needed [facility] Midodrine Midodrine Yes Mitzy [address] HCl HCl [place] [facility] Pantoprazol Pantoprazol Yes Mitzy [address] e Sodium e Sodium [place] mixed with Lukes - apple Memoria juice or l applesauce [facility] Immunizations Ordered Filled Immunization Date Status Comments Sourc e Immunization Name Name Hepatitis A (adult) Hepatitis A (adult) 2020-02-[address] [facility] Hepatitis B (adult) Hepatitis B (adult) 2020-02-[address] [facility] - 00:[facility]00 [facility] Vital Signs Vital Name Observation Time Observation Value Comments Source Systolic blood 2020-04-11 09:39:00 104 mm[Hg] [facility] Diastolic blood 2020-04-11 09:39:00 43 mm[Hg] [facility] Heart rate 2020-04-11 09:39:00 85 /min [facility] Body temperature 2020-04-11 09:39:00 36.28 Shaneka [facility] Respiratory rate 2020-04-11 09:39:00 18 /min [facility] Body height 2020-04-11 09:39:00 162.6 cm [facility] Body weight 2020-04-11 09:39:00 84.959 kg [facility] BMI 2020-04-11 09:39:00 32.15 kg/m2 [facility] Oxygen saturation in 2020-04-11 09:39:00 95 /min [facility] - Arterial blood by Medical Ce nter Pulse oximetry Procedures Procedure Date / Time Performing Clinician Source Performed PROTHROMBIN TIME/INR 2020-07-26 16:15:00 Kristofer Montgomery [facility] COMPREHENSIVE METABOLIC 2020-07-26 16:15:00 Kristofer Montgomery [facility] CBC W/PLT COUNT & AUTO 2020-07-26 16:15:00 Kristofer Montgomery [facility] BILIRUBIN, DIRECT 2020-07-26 16:15:00 Kristofer Montgomery [facility] PROTHROMBIN TIME/INR 2020-07-17 11:33:00 Kristofer Montgomery [facility] COMPREHENSIVE METABOLIC 2020-07-17 11:33:00 Kristofer Montgomery [facility] CBC W/PLT COUNT & AUTO 2020-07-17 11:33:00 Kristofer Montgomery [facility] BILIRUBIN, DIRECT 2020-07-17 11:33:00 Kristofer Montgomery [facility] PROTHROMBIN TIME/INR 2020-07-11 11:39:00 Kristofer Montgomery [facility] COMPREHENSIVE METABOLIC 2020-07-11 11:39:00 AmericaKristofer [facility] CBC W/PLT COUNT & AUTO 2020-07-11 11:39:00 AmericaKristofer theodore [facility] BILIRUBIN, DIRECT 2020-07-11 11:39:00 AmericaKristofer theodore [facility] PROTHROMBIN TIME/INR 2020-06-13 12:36:00 AmericaKristofer [facility] COMPREHENSIVE METABOLIC 2020-06-13 12:36:00 AmericaKristofer [facility] CBC W/PLT COUNT & AUTO 2020-06-13 12:36:00 Kristofer Montgomery [facility] BILIRUBIN, DIRECT 2020-06-13 12:36:00 AmericaKristofer theodore [facility] PROTHROMBIN TIME/INR 2020-05-17 13:41:00 Kristofer Montgomery [facility] COMPREHENSIVE METABOLIC 2020-05-17 13:41:00 AmericaKristofer theodore [facility] CBC W/PLT COUNT & AUTO 2020-05-17 13:41:00 AmericaKristofer theodore [facility] BILIRUBIN, DIRECT 2020-05-17 13:41:00 AmericaKristofer theodore [facility] PROTHROMBIN TIME/INR 2020-05-09 12:29:00 Kristofer Montgomery [facility] COMPREHENSIVE METABOLIC 2020-05-09 12:29:00 AmericaKristofer theodore [facility] CBC W/PLT COUNT & AUTO 2020-05-09 12:29:00 AmericaKristofer [facility] BILIRUBIN, DIRECT 2020-05-09 12:29:00 AmericaKristofer theodore [facility] PROTHROMBIN TIME/INR 2020-05-02 13:25:00 AmericaKristofer theodore [facility] COMPREHENSIVE METABOLIC 2020-05-02 13:25:00 AmericaKristofer [facility] CBC W/PLT COUNT & AUTO 2020-05-02 13:25:00 AmericaKristofer [facility] BILIRUBIN, DIRECT 2020-05-02 13:25:00 AmericaKristofer [facility] PLATELET ESTIMATION 2020-05-02 13:25:00 AmericaKristofer [facility] PROTHROMBIN TIME/INR 2020-04-25 13:13:00 AmerciaKristofer [facility] COMPREHENSIVE METABOLIC 2020-04-25 13:13:00 AmericaKristofer [facility] CBC W/PLT COUNT & AUTO 2020-04-25 13:13:00 AmericaKristofer [facility] BILIRUBIN, DIRECT 2020-04-25 13:13:00 AmericaKristofer [facility] PLATELET ESTIMATION 2020-04-25 13:13:00 AmericaKristofer [facility] PROTHROMBIN TIME/INR 2020-04-18 08:56:00 AmericaKristofer [facility] 2020-04-18 08:56:00 AmericaKristofer [facility] CBC W/PLT COUNT & AUTO 2020-04-18 08:56:00 AmericaKristofer theodore [facility] BILIRUBIN, DIRECT 2020-04-18 08:56:00 AmericaKristofer theodore [facility] XR DXA BONE DENSITY STUDY 2020-04-11 11:51:00 Kristofer Montgomery [facility] ALPHA FETOPROTEIN (AFP), 2020-04-11 11:13:[address] [facility] TUMOR MARKER [facility] BILIRUBIN, DIRECT 2020-04-11 11:13:00 Sia Riley [facility] COMPREHENSIVE METABOLIC 2020-04-11 11:13:00 Sia Riley [facility] PROTHROMBIN TIME/INR 2020-04-11 11:13:00 Sia Riley [facility] CBC W/PLT COUNT & AUTO 2020-04-11 11:13:00 Sia Riley [facility] PROTHROMBIN TIME/INR 2020-03-10 08:03:00 AmericaKristofer theodore [facility] METABOLIC 2020-03-10 08:03:00 AmericaKristofer [facility] CBC W/PLT COUNT & AUTO 2020-03-10 08:03:00 AmericaKristofer theodore [facility] BILIRUBIN, DIRECT 2020-03-10 08:03:00 AmericaKristofer [facility] MISCELLANEOUS LAB ORDER 2020-02-15 12:29:00 AmericaKristofer [facility] MAGNESIUM 2020-02-15 12:29:00 AmericaKristofer [facility] BILIRUBIN, DIRECT 2020-02-15 12:29:00 AmericaKristofer [facility] COMPREHENSIVE METABOLIC 2020-02-15 12:29:00 AmericaKristofer [facility] PROTHROMBIN TIME/INR 2020-02-15 12:29:00 AmericaKristofer [facility] CBC W/PLT COUNT & AUTO 2020-02-15 12:29:00 Kristofer Montgomery [facility] PROTHROMBIN TIME/INR 2020-02-08 10:23:00 AmericaKristofer theodore [facility] COMPREHENSIVE METABOLIC 2020-02-08 10:23:00 AmericaKristofer [facility] CBC W/PLT COUNT & AUTO 2020-02-08 10:23:00 AmericaKristofer [facility] BILIRUBIN, DIRECT 2020-02-08 10:23:00 AmericaKristofer [facility] PLATELET ESTIMATION 2020-02-08 10:23:00 AmericaKristofer [facility] PROTHROMBIN TIME/INR 2020-02-01 09:25:00 AmericaKristofer theodore [facility] METABOLIC 2020-02-01 09:25:00 AmericaKristofer [facility] CBC W/PLT COUNT & AUTO 2020-02-01 09:25:00 Kristofer Montgomery [facility] BILIRUBIN, DIRECT 2020-02-01 09:25:00 Kristofer Montgomery [facility] RHYTHM STRIP - SCAN 2020-01-27 10:00:12 Provider, Default [facility] CARDIAC CATH REPORT - SCAN 2020-01-27 10:00:07 Provider, Default [facility] TRANSFUSE LEUKO-REDUCED 2020-01-26 22:41:07 Miguel Angel, Kaylin [facility] PLATELETS [facility] METANEPHRINES 2020-01-26 14:51:[address] [facility] 2020-01-26 03:50:00 [facility] PROTHROMBIN TIME/INR 2020-01-26 03:50:00 [facility] CALCIUM, IONIZED 2020-01-26 03:50:00 [facility] 2020-01-26 03:50[facility] 2020-01-26 03:50:00 [facility] MAGNESIUM 2020-01-26 03:50:[address] [facility] CBC W/PLT COUNT & AUTO 2020-01-26 03:50:00 Florian Kinney [facility] HEPATIC FUNCTION PANEL 2020-01-25 03:47:00 [facility] PROTHROMBIN TIME/INR 2020-01-25 03:47:[address] [facility] BASIC METABOLIC PANEL (7) 2020-01-25 03:47:00 [place] [facility] MAGNESIUM 2020-01-25 03:47:[address] [facility] CBC W/PLT COUNT & AUTO 2020-01-25 03:47:00 Florian Kinney [facility] (CELLAVISION MANUAL DIFF) 2020-01-25 03:47:00 Florian Kinney [facility] TRANSFUSION SERVICE REPORT 2020-01-24 18:00:13 Provider, Default [facility] - - SCAN Scanning [facility] PULMONARY FUNCTION - SCAN 2020-01-24 13:10:09 Provider, Default [facility] SPIROMETRY 2020-01-24 10:41:00 [facility] DLCO (SINGLE BREATH 2020-01-24 10:41:00 [facility] - DIFFUSION) [facility] LUNG VOLUMES 2020-01-24 10:41:00 [facility] 6 MINUTE WALK(FOR LUNG 2020-01-24 10:20:00 [facility] - TRANSPLANT ONLY) [facility] HEPATIC FUNCTION PANEL 2020-01-24 03:57:[address] [facility] PROTHROMBIN TIME/INR 2020-01-24 03:57:[address] [facility] CALCIUM, IONIZED 2020-01-24 03:57:00 Kermit Nicole [facility] PHOSPHORUS 2020-01-24 03:57:00 Kermit Nicole [facility] BASIC METABOLIC PANEL (7) 2020-01-24 03:57:00 Leena Arias [facility] MAGNESIUM 2020-01-24 03:57:[address] [facility] CBC W/PLT COUNT & AUTO 2020-01-24 03:57:00 [place] [facility] DIFFERENTIAL [facility] PREPARE LEUKO-REDUCED RBC 2020-01-23 23:54:00 Vitor Orozco [facility] TRANSFUSION SERVICE REPORT 2020-01-23 18:00:37 Provider, Default [facility] - - SCAN [facility] HEPATIC FUNCTION PANEL 2020-01-23 04:32:[address] [facility] PROTHROMBIN TIME/INR 2020-01-23 04:32:[address] [facility] B-TYPE NATRIURETIC FACTOR 2020-01-23 04:32:[address] [facility] (BNP) [facility] CALCIUM, IONIZED 2020-01-23 04:32:00 Kermit Nicole [facility] PHOSPHORUS 2020-01-23 04:32:00 Kermit Nicole [facility] BASIC METABOLIC PANEL (7) 2020-01-23 04:32:00 [place] [facility] MAGNESIUM 2020-01-23 04:32:[address] [facility] CBC W/PLT COUNT & AUTO 2020-01-23 04:32:00 [place] [facility] (CELLAVISION MANUAL DIFF) 2020-01-23 04:32:00 [place] [facility] PREPARE LEUKO-REDUCED 2020-01-22 23:54:[address] [facility] PLATELETS [facility] TRANSFUSION SERVICE REPORT 2020-01-22 18:01:00 ProviderBozena [facility] - - SCAN Scanning [facility] TRANSFUSE LEUKO-REDUCED RED 2020-01-22 14:30:53 Vitor Orozco [facility] - BLOOD CELLS [facility] 2020-01-22 08:23:00 IsChristine [facility] CALCIUM, IONIZED 2020-01-22 04:35:00 Russ Ha [facility] HEPATIC FUNCTION PANEL 2020-01-22 04:35:00 Roscoe Ahmadi [facility] BASIC METABOLIC PANEL (7) 2020-01-22 04:35:00 [place] [facility] MAGNESIUM 2020-01-22 04:35:[address] [facility] CBC W/PLT COUNT & AUTO 2020-01-22 04:35:00 [place] [facility] (CELLAVISION MANUAL DIFF) 2020-01-22 04:35:00 [place] [facility] PROTHROMBIN TIME/INR 2020-01-22 04:34:00 Roscoe Ahmadi [facility] DIRECT [facility] (KRISTI)/DIRECT 2020-01-22 04:34:00 Oumou Jenkins [facility] ABORH, MANUAL 2020-01-22 04:34:00 Oumou Jenkins [facility] TRANSFUSION SERVICE REPORT 2020-01-21 18:00:48 ProviderBozena [facility] - - SCAN Scanning [facility] BODY FLUID CULTURE + GRAM 2020-01-21 16:54:00 Miguel Angel, Kaylin [facility] BODY FLUID CELL COUNT WITH 2020-01-21 16:54:00 Miguel Angel, Kaylin C HI [facility] US PARACENTESIS 2020-01-21 16:40:[address] [facility] MISCELLANEOUS LAB ORDER 2020-01-21 09:31:00 Issrikanth [facility] HEPATIC FUNCTION PANEL 2020-01-21 09:31:00 [facility] PROTHROMBIN TIME/INR 2020-01-21 09:31:[address] [facility] COMPREHENSIVE METABOLIC 2020-01-21 09:31:00 [facility]US 2020-01-21 09:31:00 [facility] MAGNESIUM 2020-01-21 09:31:00 AriasLeena loya [facility] CORTISOL 2020-01-21 09:31:00 Issrikanth [facility] RETICULOCYTE COUNT 2020-01-21 09:31:00 Gregory Oumou [facility] PERIPHERAL BLOOD SMEAR - 2020-01-21 09:31:00 Miguel Angel, Kaylin [facility] HOLD ONLY [facility] CBC W/PLT COUNT & AUTO 2020-01-21 09:31:00 [facility]IEW 2020-01-21 09:10:00 [facility] PORTABLE/BEDSIDE Medical Center METANEPHRINES, 24 HOUR 2020-01-20 22:51:[address] [facility] [address] [facility] URINE [facility] CATECHOLAMINES, 2020-01-20 22:51:[address] [facility] - FRACTIONATED, 24HR URINE Medical Center TYPE AND SCREEN, AUTOMATED 2020-01-20 20:39:00 Miguel Angel, Kaylin C [facility] XR CHEST 1 VIEW 2020-01-20 20:28:00 [facility]/BEDSIDE Medical Center TRANSFUSION SERVICE REPORT 2020-01-20 18:01:30 Provider, [facility] SCAN [facility] MR ABDOMEN WITHOUT IV 2020-01-20 17:54:00 [facility] HEPATIC FUNCTION PANEL 2020-01-20 04:10:00 [facility] PROTHROMBIN TIME/INR 2020-01-20 04:10:[address] [facility] CALCIUM, IONIZED 2020-01-20 04:10:00 [facility] METABOLIC 2020-01-20 04:10:00 Ha [facility] PHOSPHORUS 2020-01-20 04:10:00 [facility] MAGNESIUM 2020-01-20 04:10:00 Leena Arias [facility] CBC W/PLT COUNT & AUTO 2020-01-20 04:10:00 [facility] (CELLAVISION MANUAL DIFF) 2020-01-20 04:10:00 Ha [facility] PREPARE LEUKO-REDUCED RBC 2020-01-19 23:54:00 Kaylin Michelle [facility] URINALYSIS W/ MICROSCOPIC 2020-01-19 23:19:00 Leland [facility] SODIUM, RANDOM URINE 2020-01-19 23:19:00 Leland [facility] BLOOD CULTURE 2020-01-19 21:45:00 [facility] BLOOD CULTURE 2020-01-19 21:44:[address] [facility] [id number] 2020-01-19 21:43:00 Kristofer Montgomery [facility] TRANSFUSION SERVICE REPORT 2020-01-19 18:01:08 Provider, [facility] R & L CATH / CORONARY 2020-01-19 16:30:[address] [facility] ANGIO (+/- LV) [facility] BLOOD GAS, ARTERIAL 2020-01-19 15:44:00 AmericaKristofer theodore [facility] CRYPTOCOCCAL ANTIGEN 2020-01-19 15:04:00 AmericaKristofer tehodore [facility] MUMPS ANTIBODY, IGG 2020-01-19 15:04:00 AmericaKristofer theodore [facility] RUBELLA ANTIBODY, IGG 2020-01-19 15:04:00 AmericaKristofer theodore [facility] RUBEOLA ANTIBODY IGG 2020-01-19 15:04:00 AmericaKristofer theodore [facility] VARICELLA ZOSTER ANTIBODY, 2020-01-19 15:04:00 AmericaKristofer theodore [facility] PROTHROMBIN TIME/INR 2020-01-19 11:00:00 Roscoe Ahmadi [facility] US BREAST BILATERAL 2020-01-19 09:10:00 Kristofer Montgomery [facility] HEPATIC FUNCTION PANEL 2020-01-19 04:11:00 [facility] CALCIUM, IONIZED 2020-01-19 04:11:00 [facility] COMPREHENSIVE METABOLIC 2020-01-19 04:11:00 [facility] PHOSPHORUS 2020-01-19 04:11:00 [facility] B-TYPE NATRIURETIC FACTOR 2020-01-19 04:11:00 Russ Ha [facility] (BNP) [facility] ALDOSTERONE 2020-01-19 04:11:00 [facility] RENIN, PLASMA 2020-01-19 04:11:00 King Rehan [facility] METANEPHRINES 2020-01-19 04:11:00 King Rehanlevi Villanueva [facility] MAGNESIUM 2020-01-19 04:11:00 Leena Arias [facility] CBC W/PLT COUNT & AUTO 2020-01-19 04:11:00 [facility] CT ABDOMEN WITHOUT IV 2020-01-19 00:40:[address] [facility] CONTRAST [facility] US RENAL COMPLETE 2020-01-19 00:20:00 Galdino [facility] PREPARE LEUKO-REDUCED 2020-01-18 23:54:[address] [facility] PLATELETS [facility] URINALYSIS W/ MICROSCOPIC 2020-01-18 20:49:00 [facility] SODIUM, RANDOM URINE 2020-01-18 20:49:00 Leland [facility] PROTEIN, RANDOM URINE 2020-01-18 20:49:00 [facility] CREATININE, RANDOM URINE 2020-01-18 20:49:00 [facility] EOSINOPHIL SMEAR, URINE 2020-01-18 20:49:00 Leland [facility] TRANSFUSION SERVICE REPORT 2020-01-18 18:31:51 Provider, Bozena [facility] - - SCAN Scanning [facility] TRANSFUSE LEUKO-REDUCED RED 2020-01-18 13:21:26 Miguel Angel [facility] BLOOD CELLS [facility] NM MYOCARDIAL PERFUSION 2020-01-18 09:20:00 Brian Browning [facility] - PET/CT (REST & STRESS) Medical C enter TREADMILL 2020-01-18 08:57:35 Unknown, Hl7 [facility] - TOLERANCE(NON-NUCLEAR Medical Ce nter TREADMILL) ECG 12-LEAD 2020-01-18 08:46:42 Unknown, Hl7 [facility] BASIC METABOLIC PANEL (7) 2020-01-18 06:10:00 Leena Arias [facility] MAGNESIUM 2020-01-18 06:10:[address] [facility] T SPOT TB 2020-01-18 06:10:00 Miguel Angel [facility] HEPATIC FUNCTION PANEL 2020-01-18 06:10:00 Galdino [facility] CBC W/PLT COUNT & AUTO 2020-01-18 06:10:00 Juana [facility] (CELLAVISION MANUAL DIFF) 2020-01-18 06:10:00 Juana [facility] ECG 12-LEAD 2020-01-17 11:05:03 Brian Browning [facility] REPORT OF PROCEDURE - 2020-01-17 09:11:05 [facility]is [facility] REPORT OF PROCEDURE - 2020-01-17 08:39:23 [facility]is [place] [facility] [facility] TISSUE EXAM 2020-01-17 08:15:00 Doris [facility] TRANSFUSE LEUKO-REDUCED 2020-01-17 08:04:58 Juana [facility] UPPER ENDOSCOPY,BIOPSY 2020-01-17 07:55:00 Doris [facility] COLONOSCOPY 2020-01-17 07:55:00 Doris [facility] PROTHROMBIN TIME/INR 2020-01-17 03:56:00 Mary Roper [facility] BASIC METABOLIC PANEL (7) 2020-01-17 03:56:00 Juana [facility] MAGNESIUM 2020-01-17 03:56:[address] [facility] CBC W/PLT COUNT & AUTO 2020-01-17 03:56:00 Juana [facility] (CELLAVISION MANUAL DIFF) 2020-01-17 03:56:00 Juana [facility] TRANSFUSION SERVICE REPORT 2020-01-16 18:00:[address] [facility] BLOOD CULTURE 2020-01-16 12:25:00 Shady Gonzáles [facility] LACTATE DEHYDROGENASE (LDH) 2020-01-16 12:24:00 Juan Minor [facility] RETICULOCYTE COUNT 2020-01-16 12:23:00 Iván Juan [facility] BLOOD CULTURE 2020-01-16 11:25:00 Shady Gonzáles [facility] HIV-1 ANTIGEN WITH HIV-1/2 2020-01-16 11:25:00 Shady Gonzáles [facility] VITAMIN B12 AND FOLATE 2020-01-16 11:25:00 Iván [facility] HAPTOGLOBIN 2020-01-16 11:25:00 Iván [facility] US ABDOMINAL WITH DOPPLER 2020-01-16 06:30:00 Shady Gonzáles [facility] PROTHROMBIN TIME/INR 2020-01-16 03:38:[address] [facility] HEPATIC FUNCTION PANEL 2020-01-16 03:38:[address] [facility] BASIC METABOLIC PANEL (7) 2020-01-16 03:38:00 Juana [facility] MAGNESIUM 2020-01-16 03:38:[address] [facility] CBC W/PLT COUNT & AUTO 2020-01-16 03:38:00 Juana [facility] DRUG SCREEN, URINE, 2020-01-15 21:52:00 [facility] BLOOD TYPING, AUTOMATED 2020-01-15 18:16:00 Shady Gonzáles [facility] CT CHEST WITHOUT IV 2020-01-15 17:54:00 Shady Gonzáles [facility] XR CHEST 2 VIEWS 2020-01-15 16:57:00 Shady Gonzáles [facility] XR MANDIBLE 4 VIEWS MIN 2020-01-15 16:39:00 Shady Gonzáles [facility] VITAMIN D, 25-HYDROXY 2020-01-15 16:17:00 Shady Gonzáles [facility] COMPREHENSIVE METABOLIC 2020-01-15 16:17:00 Shady Gonzáles [facility] BILIRUBIN, DIRECT 2020-01-15 16:17:00 Shady Gonzáles [facility] CALCIUM, IONIZED 2020-01-15 16:17:00 EliecerShady morales [facility] Z[facility] 2020-01-15 16:17:00 EliecerShady davidson [facility] ANTI-NUCLEAR ANTIBODY (REILLY) 2020-01-15 16:17:00 EliecerShady davidson [facility] ACTIN (SMOOTH MUSCLE) 2020-01-15 16:17:[address] [facility] ANTIBODY, IGG [facility] MITOCHONDRIA M2 ANTIBODY 2020-01-15 16:17:[address] [facility] (IGG) [facility] IRON, TIBC, % SAT. (WITHOUT 2020-01-15 16:17:[address] [facility] FERRITIN) [facility] FERRITIN 2020-01-15 16:17:00 Shady Gonzáles [facility] TRANSFERRIN 2020-01-15 16:17:00 Shady Gonzáles [facility] [id number]-IKTQLYDNBMA\\, SERUM 2020-01-15 16:17:00 EliecerShady morales [facility] CERULOPLASMIN 2020-01-15 16:17:00 Shady Gonzáles [facility] ALPHA FETOPROTEIN (AFP), 2020-01-15 16:17:[address] [facility] TUMOR MARKER [facility] CARCINOEMBRYONIC ANTIGEN 2020-01-15 16:17:[address] [facility] (CEA) [facility] CARBOHYDRATE ANTIGEN 19-9 2020-01-15 16:17:[address] [facility] (CA 19-9) [facility] HEMOGLOBIN A1C 2020-01-15 16:17:00 Shady Gonzáles [facility] TSH 2020-01-15 16:17:00 Shady Gonzáles [facility] T3 2020-01-15 16:17:00 EliecerShady davidson [facility] T4 2020-01-15 16:17:00 EliecerShady davidson [facility] ETHANOL 2020-01-15 16:17:00 EliecerShady morales [facility] FIBRINOGEN 2020-01-15 16:17:00 EliecerShady davidson [facility] PROTHROMBIN TIME/INR 2020-01-15 16:17:00 EliecerShady davidson [facility] APTT 2020-01-15 16:17:00 EliecerShady davidson [facility] HEPATITIS A ANTIBODY, IGM 2020-01-15 16:17:00 EliecerShday morales [facility] HEPATITIS B SURFACE ANTIGEN 2020-01-15 16:17:00 EliecerShady morales Irene [facility] HEPATITIS B SURFACE 2020-01-15 16:17:00 EliecerShady morales [facility] HEPATITIS B CORE ANTIBODY, 2020-01-15 16:17:[address] [facility] TOTAL [facility] HEPATITIS B CORE ANTIBODY, 2020-01-15 16:17:00 EliecerShady morales [facility] HEPATITIS C ANTIBODY 2020-01-15 16:17:00 EliecerShady davidson [facility] RPR 2020-01-15 16:17:00 EliecerShady davidson [facility] CYTOMEGALOVIRUS ANTIBODY, 2020-01-15 16:17:00 EliecerShady davidson [facility] IGG [facility] CYTOMEGALOVIRUS ANTIBODY, 2020-01-15 16:17:00 EliecerShady morales [facility] IGM [facility] EBV ANTIBODY, IGM 2020-01-15 16:17:00 EliecerShady morales [facility] TYPE AND SCREEN, AUTOMATED 2020-01-15 16:17:00 Shady Gonzáles [facility] 2D ECHO W/ DOPPLER 2020-01-15 14:45:25 Ren Hernandez [facility] (CW/PW/COLOR) [facility] CAROTID DOPPLER BILATERAL 2020-01-15 14:41:00 EliecerShady davidson [facility] SODIUM, RANDOM URINE 2020-01-15 12:46:00 Marcus Stoneith [facility] CREATININE, RANDOM URINE 2020-01-15 12:46:00 Graciela Stone [facility] AMMONIA 2020-01-15 08:32:00 [facility]EL, ACUTE 2020-01-15 08:32:00 Marcus Stoneith [facility] BASIC METABOLIC PANEL (7) 2020-01-15 03:56:00 Graciela Stone [facility] PROTHROMBIN TIME/INR 2020-01-15 03:56:[address] [facility] HEPATIC FUNCTION PANEL 2020-01-15 03:56:00 [facility] MAGNESIUM 2020-01-15 03:56:00 [facility] URIC ACID 2020-01-15 03:56:00 Shady Gonzáles [facility] GAMMA GLUTAMYL TRANSFERASE 2020-01-15 03:56:00 Eliecer [facility] (GGT) [facility] PHOSPHORUS 2020-01-15 03:56:00 Eliecer [facility] LIPID PANEL 2020-01-15 03:56:00 Shady Gonzáles [facility] CBC W/PLT COUNT & AUTO 2020-01-15 03:56:00 Graciela Stone [facility] (CELLAVISION MANUAL DIFF) 2020-01-15 03:56:00 Graciela Stone [facility] BASIC METABOLIC PANEL (7) 2020-01-14 21:59:00 Graciela Stone [facility] PROTHROMBIN TIME/INR 2020-01-14 21:59:00 [facility]EL 2020-01-14 21:59:00 [facility] CBC W/PLT COUNT & AUTO 2020-01-14 21:59:[address] [facility] - DIFFERENTIAL [facility] SARS-COV2/RT-PCR ([facility] & 2020-01-14 19:28:[address] [facility] - REF LABS) [facility] BASIC METABOLIC PANEL (7) 2020-01-03 14:34:[address] [facility] HEPATIC FUNCTION PANEL 2020-01-03 14:34:00 Larry, [facility] S t [facility] PROTHROMBIN TIME/INR 2020-01-03 14:34:00 [facility], [facility] ALPHA FETOPROTEIN (AFP), 2020-01-03 14:34:00 [facility], [facility] - TUMOR MARKER [facility] CBC W/PLT COUNT & AUTO 2020-01-03 14:34:00 [facility] S t [facility] - DIFFERENTIAL [facility] Plan of Care Planned Activity Planned Date Details Comments Source Future Scheduled 2030-01-[address] [facility] 00:[facility] [code = 454180915] Future Scheduled 2020-07-[address] [facility] Test 00:00:00 WELLNESS (YEAR 2 or Medical Center FIRST YEAR if no IPPE) [code = MEDICARE ANNUAL WELLNESS (YEAR 2 or FIRST YEAR if no IPPE)] Future Scheduled 2020-07-[address] [facility] - Test 00:00:00 (12+) [code = Medical Center DEPRESSION SCREENING (12+)] Future Scheduled 2020-03-28 INFLUENZA VACCINE (#1) [facility]00 [code = INFLUENZA Medical Ce nter VACCINE (#1)] Future Scheduled 2020-02-26 [facility]ACCINE [facility] 00:00:00 [code = INFLUENZA VACCINE] Future Scheduled 2019 65+ PNEUMOCOCCAL [facility] Test 00:00:00 VACCINE (1 of 1 - [...] Future Scheduled 2004 COLONOSCOPY SCREENING [facility] Test 00:00:00 [code = COLONOSCOPY SCREENING] Future Scheduled 2004 SHINGLES VACCINES (#1) [place] [facility] Test 00:00:00 [code = SHINGLES VACCINES (#1)] Future Scheduled 1970 COVID-19 VACCINE (1 of [facility] Test 00:00:00 2) [code = COVID-19 VACCINE (1 of 2)] Future Scheduled [address] [facility] Test 00:00:00 malignant neoplasm of Medica l Center breast (procedure) [code = 122952299] Encounters Start End Encounter Admission Attending Care Care Encounter Source Date/Time Date/Time Type Type Clinicians Facility Department ID 2020-07-19 2020-07-[address] [facility] [id number] [facility] 2020-06-19 2020-06-19 [facility] [id number] 2020-06-16 2020-06-16 [id number] 2020-05-02 2020-05-[address] [facility] [id number] [facility] 2020-04-19 2020-04-19 [id number] 2020-02-21 2020-02-21 [facility] [id number] 16[facility]00 16:00:00 [facility] Medicine Outpati ent Clinics 2020-02-14 2020-02-14 [facility] [id number] 10[facility]00:00 10:00:00 [facility] Medicine l Medicine Outpati ent Clinics 2020-02-03 2020-02-03 [facility] [id number] 11:48:00 11:48:00 [facility] Medicine l Medicine Outpati ent Clinics 2020-01-13 2020-01-13 [facility] [id number] 14:40:00 14:40:00 t [facility] Medicine l Medicine Outpati ent Clinics 2020-01-03 2020-01-03 Transition [place] [id number] 00:00:00 00:00:00 of Care Aye [place] [id number] [place] [id number] 2019-12-28 2019-12-31 [facility] Seanjasvir [facility] [id number] 21:39:45 13:10:00 Encounter Jacklyn [place] [id number] [place] [id number] [place] [id number] 2019-11-03 2019-11-03 [facility] [id number] 13:20:00 13:20:00 [facility] Medicine Outpati ent Clinics 2019-09-10 2019-09-10 [facility] [id number] 09:30:00 09:30:00 t [facility] Medicine l Medicine Outpati ent Clinics 2019-08-31 2019-08-31 [facility] [id number] 08:00:00 08:00:00 [facility] Medicine l Medicine Outpati ent Clinics 2019-08-24 2019-08-24 [facility] [id number] 10:41:00 10:41:00 [facility] Medicine [facility] Medicine Outpati ent Clinics 2019-08-19 2019-08-19 Outpatient Rafia Moratayat [id number] 13:00:00 13:00:00 [facility] Results Test Description Test Time [...] OR = 60 L (test code = 0357365) mL/min/1.73m2 eGFR If Africn Am (test 20 > OR = 60 L code = 2034364) mL/min/1.73m2 BUN/Creatinine Ratio 14 6- 22 (calc) (test code = 6930887) Sodium (test code = 136 mmol/L 135-893 8830830) Potassium, Serum (test 4.2 mmol/L 3.5-5.3 code = 20101213) Chloride (test code = 107 mmol/L 98-958 6266667) Carbon Dioxide, Total 21 mmol/L 20-32 (test code = 6843183) Calcium, Serum (test 9.8 mg/dL 8.6-10.4 code = 20101125) Protein, Total, Serum 5.8 g/dL 6.1-8.1 L (test code = 20101202) Albumin (test code = 3.3 g/dL 3.6-5.1 L ) GLOBULIN (QUEST) (test 2.5 1.9- 3.7 g/dL code = 0144253) (calc) Albumin Globulin Ratio 1.3 1.0- 2.5 (calc) (test code = 1759-0) Bilirubin, Total (test 2.5 mg/dL 0.2-1.2 H code = 5403107) Alkaline Phosphatase, S 117 U/L 37-153 (test code = 6768-6) AST (SGOT) (test code = 29 U/L 20101208) ALT (SGPT) (test code = 11 U/L 01-23) VALENTE (test code = VALENTE) FASTING:NOFASTING: NO RAC (test code = RAC) Performing Organization Information: Site ID: SANJAYA Name: [facility] Address: [address] [place] [id number] Director: Alonso Carrasco Lab Interpretation Abnormal (test code = 97137-5) [facility], [id number] 21:00:00 Test Item Value Reference Range Interpretation Comments Bilirubin, Total (test 2.5 mg/dL 0.2-1.2 H code = 20101204) Bilirubin, Direct (test 0.8 mg/dL < OR = 0.2 H code = 20101216) Bilirubin, Indirect 1.7 0.2- 1.2 mg/dL H (test code = 5100102) (calc) VALENTE (test code = VALENTE) FASTING:NOFASTING: NO RAC (test code = RAC) Performing Organization Information: Site ID: RGA Name: [facility] Address: [address] [place] [phone] Director: Alonso Carrasco Lab Interpretation Abnormal (test code = 59182-5) [facility] with platelet count + automated [id number] 21:00:00 Test Item Value Reference Interpretation Comments [...] MPV (test code = 11.2 fL 7.5-12.5 8377190) # Neutros (test 2703 1,500 - 7,800 code = 9578356) cells/uL # Lymphs (test code 954 850- 3,900 = 731-0) cells/uL # Monos (test code 456 200- 950 = 1914241) cells/uL # Eos (test code = 559 15- 500 H 711-2) cells/uL # Baso (test code = 28 0- 200 704-7) cells/uL % Neutros (test 57.5 % code = ) % Lymphs (test code 20.3 % = 20200217) % Monos (test code 9.7 % = ) % Eos (test code = 11.9 % 20200215) % Baso (test code = 0.6 % 20200216) VALENTE (test code = FASTING:NOFASTING VALENTE) : NO RAC (test code = Performing RAC) Organization Information: Site ID: RGA Name: [facility] Address: [address] [place] [address] Director: Alonso Carrasco Lab Interpretation Abnormal (test code = 35534-6) [facility] PeninsulaProthrombin time/[id number] 21:00:00 Test Item Value Reference Range Interpretation Comments INR (test code = 1.2 H Reference R von ) 0.9-1.1Moderate - intensity Warfarin Therap y 2.0-3.0Higher-i n tensity Warfari n Therapy 3.0-4.0 PT (test code = 11.9 9.0- 11.5 sec H For additio nal ) information, please refer [email or web address] i [email or web address]/FAQ 07 31(This link is being provided for informational/e d ucational purposes only.) VALENTE (test code = VALENTE) FASTING:NOFASTING: NO RAC (test code = RAC) Performing Organization Information: Site ID: RGA Name: [facility] Address: [address] [place], [place] [id number] Director: Alonso Carrasco Lab Interpretation Abnormal (test code = 24687-8) [facility] PeninsulaPLATELET [id number] 18:02:00 Test Item Value Reference Range Interpretation Comments Platelet Estimate (test DECREASED ADEQUATE A code = 18010-9) VALENTE (test code = VALENTE) FASTING:NOFASTING: NO RAC (test code = RAC) Performing Organization Information: Site ID: JOSHUA Name: [facility] Address: [address] [place] [phone] Director: Alonso Carrasco Lab Interpretation (test Abnormal code = 27712-1) [facility] PeninsulaBILIRUBIN, [id number] 15:57:00 Test Item Value Reference Range Interpretation Comments BILIRUBIN DIRECT (BEAKER) (test 1.9 mg/dL 0.1-0.5 H code = 706) Millinery Teacher ID - BSCOMPREHENSIVE METABOLIC [id number] 15:57:00 Test Item Value Reference Range Interpretation [...] S NOT APPLICABLE FOR DIALYSIS PATIEN TS. Millinery Teacher ID - BSSpecimen moderately ictericAlpha fetoprotein (AFP), tumor marker 2020-04-11 15:41:00 Test Item Value Reference Range Interpretation Comments Alpha-Fetoprotein (test code <2.0 <10.0 ng/mL = 1834-1) VALENTE (test code = VALENTE) Millinery Teacher ID - BS Lab Interpretation (test Normal code = 60460-0) [facility] Peninsula[facility]PHA FETOPROTEIN (AFP), TUMOR [id number] 15:41:00 Test Item Value Reference Range Interpretation Comments ALPHA-FETOPROTEIN (BEAKER) (test code < ng/mL <10.0 = 1094) Millinery Teacher ID - BSRAD, BONE DENSITY [id number] 13:34:00Referring: Dr. Rowdy Zhang for Exam:->liver transplant waiting listFINAL REPORT Bone density study, 04/11/2020 Clinical History: Screening Bone mineral density measurementLumbar spine0.866 gm/bi4Ngmbkyj neck0.714 gm/cm2 Standard deviation fromyoung adult population [...] or more fragility fractures Signed: Jorge Brooks MDRsubhash Verified Date/Time: 04/11/2020 13:34:32 Reading Location: [address] Mammo Reading Room XR dxa bone density [id number] 13:34:00 Interface, External Ris In - 04/11/2020 1:36 PM CDTFINAL REPORT Bone densitystudy, 04/11/2020 Clinical History: Screening Bone mineral density measurementLumbar spine0.866 gm/jr3Uasuzah neck0.714 gm/cm2 Standard deviation from young adult [...] or more fragility fractures Signed: Jorge Brooks MDRsubhash Verified Date/Time: 04/11/2020 13:34:32 Reading Location: [address] Mammo Reading Room [facility]/[id number] 13:02:00 Test Item Value Reference Range Interpretation [...] heart valves.CBC with platelet count + automated [id number] 12:52:00 Test Item Value Reference Range Interpretation [...] K/CU MM L MPV (test code = 81119-0) 10.4 fL 9.4-12.3 nRBC (test code = [...] 2801) Lab Interpretation (test code = Abnormal 96747-2) [facility] W/PLT COUNT & AUTO [id number] 12:52:00 Test Item Value Reference Range Interpretation [...] (BEAKER) (test code = 2801) MISCELLANEOUS LAB [id number] 12:14:00 Test Item Value Reference Range Interpretation Comments SCAN RESULT (test code = 7881676) Miscellaneous lab [id number] 12:14:00Scan ResultQUEST NON-INTERFACED LABCHI [facility]2020-07-21 13:17:00 Test Item Value Reference Range Interpretation Comments Magnesium (test code = 1.8 mg/dL 1.6-2.6 91791-2) VALENTE (test code = VALENTE) Millinery Teacher ID - LM Lab Interpretation (test Normal code = 20318-4) [facility]2020-07-21 13:17:00 Test Item Value Reference Range Interpretation Comments MAGNESIUM (BEAKER) (test code = 1.8 mg/dL 1.6-2.6 627) Millinery Teacher ID - LMCOMPREHENSIVE METABOLIC [id number] 13:17:00 Test Item Value Reference Range Interpretation [...] S NOT APPLICABLE FOR DIALYSIS PATIEN TS. Millinery Teacher ID - LMSpecimen moderately ictericBILIRUBIN, [id number] 13:17:00 Test Item Value Reference Range Interpretation Comments BILIRUBIN DIRECT (BEAKER) (test 2.5 mg/dL 0.1-0.5 H code = 706) Millinery Teacher ID - LMPROTHROMBIN TIME/[id number] 13:05:00 Test Item Value Reference Range Interpretation [...] mechanical heart valves.CBC W/PLT COUNT & AUTO [id number] 12:59:00 Test Item Value Reference Range Interpretation [...] 0-1 PERCENT (BEAKER) (test code = 2801) [id number] 10:36:00 Test Item Value Reference Interpretation Comments Range Metanephrine (test 46 pg/mL < OR = 57 This mushtaq t was developed code = 6039221) and its anal ytical performance characteristics havebeen determined by [facility] Jorje Queen.It h as not been cleared or appr jean-claude by FDA. This assay has been validatedpursua nt to the CLIA regulation s and is used for clinic al purposes. Normetanephrine 213 pg/mL < OR = 148 H This test w as developed (test code = and its analyti steven 20191028) performance characteristics havebeen determined by [facility].It h as not been cleared [...] Reference: (1) Latrice Lorenz et al, Plasma Pump Mechanic mogranin A or Urine FractionatedMet anephrines Follow-Up Testi ng Improves the Diagnostic Accuracy of PlasmaFractiona madai Metanephrines f or Pheochromocytom a. The Journal of ClinicalEndocri nology and Metabolism 93 ( 1),91-95, 2008. For addit ional information, pl ease refer tohttp://educat ion.[employer].Sellf/f aq/MetFract Free(This link is being provided for informational/e ducational purposes only.) This test was developed a nd its analytical perf ormance characteristics havebeen determined by [facility].It h as not been cleared or appr jean-claude by FDA. This assay has been validatedpursua nt to the CLIA regulation s and is used for clinic al purposes. VALENTE (test code = Performing Lab VALENTE) [facility] [employer] [facility] [address] [place] [address] Mark Encarnacion MD, PhD, AMINA Lab Interpretation Abnormal (test code = 37316-3) [facility] PeninsulaCatecholamines, Fractionated, 24hr [id number] 11:55:00 Test Item Value Reference Interpretation Comments Range TOTAL VOLUME (test 1000 mL code = 0046145) Epinephrine,24 Hr <2 2- 24 mcg/24 h L Result b elow clinical Ur (test code = reportable r von for ) this analyte, w hich is 2 mcg/L.Repo rted result was calc ulated using 2 mcg/L. This test was develo ped and its analyti steven performance characteristics havebeen determ ined by [facility] .It has not been cl eared or approved by FDA. This assay has been validatedpursua nt to the CLIA regula tions and is used for clinical purpos es. Norepinephrine 9 15- 100 mcg/24 L This test was (test code = h developed and i ts ) analytical performance characteristics havebeen determ ined by [employer] [facility] .It has not been cl eared or approved by FDA. This assay has been validatedpursua nt to the CLIA regula tions and is used for clinical purpos es. Calculated Total 9 26- 121 mcg/24 L This mushtaq t was E+Ne (test code = h developed and its 20190907) analytical performance characteristics havebeen determ ined by [employer] [facility] .It has not been cl eared [...] steven performance characteristics havebeen determ ined by [employer] [facility] .It has not been cl eared or approved by FDA. This assay has been validatedpursua nt to the CLIA regula tions and is used for clinical purpos es. Creatinine,24 Hr 0.88 0.50- 2.15 Urin (test code = g/24 h ) VALENTE (test code = Performing Lab VALENTE) [employer] [facility] [address] [place] [address] I Shashank ADRIAN, PhD, AMINA Lab Interpretation Abnormal (test code = 06176-0) [facility] PeninsulaMISCELLANEOUS LAB [id number] 12:33:00 Test Item Value Reference Range Interpretation Comments SCAN RESULT (test code = 8728720) XSMHH-2-DYTPBGOCWRT [id number] 16:28:00 Test Item Value Reference Range Interpretation Comments Lab Interpretation (test code = Normal 79908-5) [facility] PeninsulaMetanephrines, 24 hour [id number] 12:57:00 Test Item Value Reference Interpretation Comments Range TOTAL VOLUME (test 1000 mL code = 0296220) Metanephrine (test 205 90- 315 This mushtaq t was code = 7117431) mcg/24 h developed an d its analytical perf ormance characteristics havebeen determ ined by [employer] [facility] .It has not been cleare d or approved by FDA . This assay has been validatedpursua nt to the CLIA regula tions and is used for clinical purpos es. Normetanephrine 657 122- 676 This test w as (test code = mcg/24 h developed and i ts 20191029) analytical perf ormance characteristics havebeen determ ined by [employer] [facility] .It has not been cleare d or [...] perf ormance characteristics havebeen determ ined by [facility] .It has not been cleare d or approved by FDA . This assay has been validatedpursua nt to the CLIA regula tions and is used for clinical purpos es. VALENTE (test code = Performing Lab VALENTE) [facility] [employer] [facility] [address] [place] [address] Mark Encarnacion MD, PhD, AMINA Lab Interpretation Abnormal (test code = 98859-4) [facility] PeninsulaCalcium, [id number] 05:42:00 Test Item Value Reference Range Interpretation Comments Calcium, Ion (test code = 1993-) 1.11 mmol/L 1.12-1.27 L pH, Blood (test code = 77173-3) 7.41 Lab Interpretation (test code = Abnormal 63856-1) [facility] PeninsulaCALCIUM, [id number] 05:42:00 Test Item Value Reference Range Interpretation Comments CALCIUM IONIZED (BEAKER) (test 1.11 mmol/L 1.12-1.27 L code = 698) PH, BLOOD (BEAKER) (test code = 7.41 1810) COMPREHENSIVE METABOLIC [id number] 04:57:00 Test Item Value Reference Range Interpretation [...] S NOT APPLICABLE FOR DIALYSIS PATIEN TS. Millinery Teacher ID - BSSpecimen moderately ictericHepatic function jjyme6736-32-41 04:53:00 Test Item Value Reference Range Interpretation Comments Protein, Total (test code 5.7 6.0- 8.3 gm/dL L = 2885-2) Albumin (test code = 3.4 g/dL 3.5-5 L 49277-5) Total Bilirubin (test 6.9 mg/dL 0.2-1.2 H code = 1975-2) Bilirubin, Direct (test 2.2 mg/dL 0.1-0.5 H code = 1968-7) Alkaline Phosphatase 58 U/L 40-150 (test code = 6768-6) AST (test code = 1920-8) 36 U/L 5-34 H ALT (test code = 1742-6) 13 U/L 6-55 VALENTE (test code = VALENTE) Millinery Teacher ID - BSSpecimen moderately icteric Lab Interpretation (test Abnormal code = 02983-8) [facility] PeninsulaPhosphorus2020-07-01 04:53:00 Test Item Value Reference Range Interpretation Comments Phosphorus (test code = 3.2 mg/dL 2.3-4.7 2777-1) VALENTE (test code = VALENTE) Millinery Teacher ID - BS Lab Interpretation (test Normal code = 28258-6) [facility] PeninsulaPHOSPHORUS2020-07-01 04:53:00 Test Item Value Reference Range Interpretation Comments PHOSPHORUS (BEAKER) (test code = 3.2 mg/dL 2.3-4.7 604) Millinery Teacher ID - VSIUCXZSZLJ2754-29-21 04:53:00 Test Item Value Reference Range Interpretation Comments MAGNESIUM (BEAKER) (test code = 1.7 mg/dL 1.6-2.6 627) Millinery Teacher ID - BSHEPATIC FUNCTION [id number] 04:53:00 Test Item Value Reference Range Interpretation [...] (test code = 13 U/L 6-55 347) Millinery Teacher ID - BSSpecimen moderately ictericCBC W/PLT COUNT & AUTO [id number] 04:42:00 Test Item Value Reference Range Interpretation [...] PERCENT (BEAKER) (test code = 2801) PROTHROMBIN TIME/[id number] 04:36:00 Test Item Value Reference Range Interpretation [...] (test No organisms seen code = 1123) [facility] PeninsulaBODY FLUID CULTURE + GRAM [id number] 12:05:00 Test Item Value Reference Range Interpretation Comments CULTURE (BEAKER) (test No growth code = 1095) GRAM STAIN RESULT <1+ White blood cells (BEAKER) (test code = seen 1123) GRAM STAIN RESULT No organisms seen (BEAKER) (test code = 17300) Manual [id number] 07:35:00 Test Item Value Reference Range Interpretation [...] = 3438) VALENTE (test code = VALENTE) Millinery Teacher ID - [id number] ID - Maria Del Carmen Quintana comments: Slide comments: Lab Interpretation (test Abnormal code = 98630-8) [facility] W/PLT COUNT & AUTO [id number] 07:35:00 Test Item Value Reference Range Interpretation [...] CONCENTRATION Decreased (CELLAVISION)(BEAKER) (test code = 3438) Millinery Teacher ID - 6000Operator ID - Maria Del Carmen Lilian comments: Slide comments:Basic Metabolic [id number] 06:24:00 Test Item Value Reference Range Interpretation Comments Sodium (test code = 140 meq/L 362-262 3119-2) Potassium (test code 3.4 meq/L 3.5-5.1 L = 2823-3) Chloride (test code = 105 meq/L 98-107 2075-0) CO2 (test code = 25 meq/L 22-29 2028-9) BUN (test code = 31 mg/dL 7-21 H 3094-0) Creatinine (test code 2.35 mg/dL 0.57-1.25 H = 2160-0) Glucose (test code = 108 mg/dL 70-105 H 2345-7) Calcium (test code = 8.7 mg/dL 8.4-10.2 25119-6) EGFR (test code = 21 mL/min/1.73 [place] [address]-1) NOT ACCURATE CREATININE CLEARANCE IN PREDICTING GLOMERULAR FILTRATION RATE . ESTIMATED GFR I S NOT APPLICABLE FOR DIALYSIS PATIENTS. VALENTE (test code = VALENTE) Millinery Teacher ID - MITCH RUTHERFORDpecimeyahaira moderately icteric Lab Interpretation Abnormal (test code = 77728-1) [facility] PeninsulaBASI METABOLIC [id number] 06:24:00 Test Item Value Reference Range Interpretation [...] S NOT APPLICABLE FOR DIALYSIS PATIEN TS. Millinery Teacher ID - MITCH RUTHERFORDpecimen moderately ictericHEPATIC FUNCTION [id number] 06:23:00 Test Item Value Reference Range Interpretation [...] (test code = 13 U/L 6-55 347) Millinery Teacher ID - MITCH LSpecimen moderately oxdfplcHUFVJUQJZ9413-67-11 06:22:00 Test Item Value Reference Range Interpretation Comments MAGNESIUM (BEAKER) (test code = 1.8 mg/dL 1.6-2.6 627) Millinery Teacher ID - MITCH LPROTHROMBIN TIME/[id number] 04:22:00 Test Item Value Reference Range Interpretation [...] = No growth in 5 days 6463-4) [facility] PeninsulaBLOOD [id number] 23:00:00 Test Item Value Reference Range Interpretation Comments CULTURE (BEAKER) (test No growth in 5 days code = 1095) BLOOD [id number] 23:00:00 Test Item Value Reference Range Interpretation Comments CULTURE (BEAKER) (test No growth in 5 days code = 1095) DLCO (single breath diffusion)2020-01-24 10:41:00Epifanio Giles, DARKLIGHT INSPECTOR, GLOVE FORMER 01/24/2020 10:52 [facility] PFT CHARTING REPORT Infection Control/Hand Hygiene procedures followed throughout the encounter with patient: YesPatient Identification Method: Patient name verified on armband, and Medical record on armband, Is the order complete?: Yes Account ID#: [id number] Name: Cici Calderon Birthdate: 1955 Age: 64 [...] and patient released from the lab without adverseoutcome.[facility] PeninsulaPulmonary Funct Lab Iydkoxaese1115-21-20 10:41:00Epifanio Giles, DARKLIGHT INSPECTOR, GLOVE FORMER 01/24/2020 10:52 [facility] PFT CHARTING REPORT Infection Control/Hand Hygiene procedures followed throughout the encounter with patient: YesPatient Identification Method: Patient name verified on armband, and Medical record on armband, Is the order complete?: Yes Account ID#: [id number] Name: Cici Calderon Birthdate: 1955 Age: 64 [...] and patient released from the lab without adverseoutcome.[facility] PeninsulaLung [id number] 10:41:00Epifanio Giles RRT, GLOVE FORMER 01/24/2020 10:52 [facility] Infection Control/Hand Hyg iene procedures followed throughout the encounter with patient: YesPatient Identification Method: Patient name verified on armband, and Medical record on armband, Is the order complete?: Yes Account ID#: [id number] Name: Cici Calderon Birthdate: 1955 Age: 64 [...] and patient released from the lab without adverseoutcome.[facility]6 MINUTE WALK(FOR LUNG TRANSPLANT ONLY)2020-01-24 10:20:00Janina Meehan RRT, GLOVE FORMER 01/24/2020 2:39 [facility] PFT CHARTING REPORT Infection Control/Hand Hygiene procedures followed throughout the encounter with patient: YesPatient Identification Method: Patient name verified on armband, and Medical record on armband, Is the order complete?: Account ID#: [id number] Name: Cici Calderon Birthdate: 1 09/08/1954 Age: [...] patient released from the lab without adverse outcome.[facility] PeninsulaU/S, [id number] 09:43:00 Referring: Dr. Rowdy Christie to be ordered:->Body Fluid Culture (w/Gram Stain, C\\T\\S)Labs marko ordered:->Cell CountReason for exam:->Acute Kidney Injury - rule out SBP - can remove volume of up to 4-5 L (given ANDERS)Should this be performed at the bedside?->YesFINAL REPORT Ultrasound guided paracentesis Clinical History: Ascites. Sedation: None. Manufacturing Technologist: Christine Ward PA-C Supervising Physician: Natan Chisholm MD Order Schedule Clerk: None. Estimated Blood Loss: < 1 mL. [...] anesthesia was achieved with lidocaine, a 5 Guatemalan one-step catheter was advanced into theperitoneal cavity under ultrasound guidance. After completion of drainage, the catheter was removed.There was no evidence of complication. Impression:Successful ultrasound guided paracentesis. Signed:Natan Chisholm MDReport Verified Date/Time: 01/24/2020 09:43:05 Reading Location: [facility] P006J Ultrasound Reading Room US [id number] 09:43:00Interface, External Ris In - 01/24/2020 9:45 AM CDTFINAL REPORT Ultrasound guided paracentesis Clinical History: Ascites. Sedation: None. Manufacturing Technologist: Christine Ward PA-C Supervising Physician: Natan Chisholm MD Order Schedule Clerk: None. Estimated Blood Loss: < 1 mL. [...] anesthesia was achieved with lidocaine, a 5 Guatemalan one-step catheter was advanced into the peritoneal cavity under ultrasound guidance. After completion of drainage, the catheter was removed. There was no evidence of complication. Impression:Successful ultrasound guided paracentesis. Signed: Natan Chisholm Verified Date/Time: 12/27 09:43:05 Reading Location: [address] [facility]ound [facility] [id number] 06:18:00 Test Item Value Reference Range Interpretation [...] S NOT APPLICABLE FOR DIALYSIS PATIEN TS. Millinery Teacher ID - MITCH LSpecimen moderately [id number] 05:38:00 Test Item Value Reference Range Interpretation Comments PHOSPHORUS (BEAKER) (test code = 2.8 mg/dL 2.3-4.7 604) Millinery Teacher ID - MITCH [id number] 05:38:00 Test Item Value Reference Range Interpretation Comments MAGNESIUM (BEAKER) (test code = 1.8 mg/dL 1.6-2.6 627) Millinery Teacher ID - MITCH LHEPATIC FUNCTION [id number] 05:38:00 Test Item Value Reference Range Interpretation [...] (test code = 11 U/L 6-55 347) Millinery Teacher ID - MITCH RUTHERFORDpecimen moderately ictericCALCIUM, [id number] 04:56:00 Test Item Value Reference Range Interpretation Comments CALCIUM IONIZED (BEAKER) (test 1.09 mmol/L 1.12-1.27 L code = 698) PH, BLOOD (BEAKER) (test code = 7.43 1810) PROTHROMBIN TIME/[id number] 04:48:00 Test Item Value Reference Range Interpretation [...] mechanical heart valves.CBC W/PLT COUNT & AUTO [id number] 04:36:00 Test Item Value Reference Range Interpretation [...] (BEAKER) (test code = 2801) Prepare Leuko-Red [id number] 23:54:00 Test Item Value Reference Range Interpretation Comments CROSSMATCH (test code = 2264) COMPATIBLE Unit ABO (test code = A Pos 5280406) UNIT NUMBER (test code = [id number] 934-0) Status (test code = 1669993) TX_TIMEINCHART Blood Bank Product (test code RED BLOOD CELLS = 2263) PRODUCT CODE (test code = R1186T19 933-2) [facility] PeninsulaRubeola antibody [id number] 18:06:00 Test Item Value Reference Range Interpretation Comments Rubeola Ab, 235 AU/mL REFERENCE RANGE : Igg (test code <13.50 AU/mL = 38353-1) AU/mL Interpretation ==== <13.50 Negative 13.50-16.49 Equivocal >16.49 Positive A posi tive result indicate s that the patient hasantibody to measles virus. It does notdifferentiat e between an acti ve or past infection. The clinical diagno sis must be interpr eted inconjunction w ith clinical signs and symptoms ofthe patient. For additional information, pl ease refer tohttp://educat ion.[facility] stDiagnostics.c om/faq/ ZMT060(This rosa k is being provided for informational/e ducatio nal purposes on ly.) VALENTE (test code Performing Lab = VALENTE) *QDID [employer] [facility] [address] [place] [id number] Sudhakar Hargrove MD [facility] PeninsulaMitochondria M2 Antibody (IgG)2020-01-23 13:50:00 Test Item Value Reference Range Interpretation Comments Mitochondria M2 Ab <20.0 See Note: U Reference (test code = Range:NEGATIVE: 4176760) < OR = 20.0EQUIVOCAL: 20.1-24.9POSITI V E: > OR = 25.0 VALENTE (test code = Performing Lab VALENTE) [facility] [address] [address] Mark Encarnacion MD, PhD, AMINA [facility] PeninsulaMumps antibody, [id number] 13:38:00 Test Item Value Reference Range Interpretation Comments Mumps Ab Igg >300.00 AU/mL REFERENCE RANGE : <9.00 (test code = AU/mL 6664305) Interpretation< 9.00 Negative9.0 0-10.99 Equivocal>10. 99 Positive A pos itive result indicate s that the patient hasanti body to mumps virus. It does not differentiatebe tween an active or past infection. The clinicaldia gnosis must be interpreted in conjunction wit hclinical signs and sympt oms of the patient. VALENTE (test Performing Lab code = VALENTE) *QD[facility] [employer] [facility] [address] [place] [address] H Jorje Hargrove MD [facility] W/PLT COUNT & AUTO [id number] 12:26:00 Test Item Value Reference Range Interpretation [...] CONCENTRATION Decreased (CELLAVISION)(BEAKER) (test code = 3438) Millinery Teacher ID - 6000Operator ID - Charo Jordan comments: Slide comments: BASIC METABOLIC [id number] 07:18:00 Test Item Value Reference Range Interpretation [...] S NOT APPLICABLE FOR DIALYSIS PATIEN TS. Millinery Teacher ID - PIAYA LSpecimen moderately [id number] 07:17:00 Test Item Value Reference Range Interpretation Comments MAGNESIUM (BEAKER) 1.6 mg/dL 1.6-2.6 Specimen slightly (test code = 627) hemolyzed Millinery Teacher ID - PIAYA [id number] 07:17:00 Test Item Value Reference Range Interpretation Comments PHOSPHORUS (BEAKER) 2.4 mg/dL 2.3-4.7 Specimen slightly (test code = 604) hemolyzed Millinery Teacher ID - MITCH LHEPATIC FUNCTION [id number] 07:17:00 Test Item Value Reference Range Interpretation [...] Specimen slightly (test code = 347) hemolyzed Millinery Teacher ID - MITCH LSpecimen moderately ictericB-type Natriuretic Factor (BNP) 2020-01-23 06:55:00 Test Item Value Reference Range Interpretation Comments BNP (test code = 93729-1) 2179 pg/mL 0-100 H VALENTE (test code = VALENTE) Millinery Teacher ID - MITCH L Lab Interpretation (test Abnormal code = 29300-6) [facility] PeninsulaB-TYPE NATRIURETIC FACTOR (BNP)2020-01-23 06:55:00 Test Item Value Reference Range Interpretation Comments B-TYPE NATRIURETIC PEPTIDE 2179 pg/mL 0-100 H (BEAKER) (test code = 700) Millinery Teacher ID - MITCH LCALCIUM, [id number] 06:31:00 Test Item Value Reference Range Interpretation Comments CALCIUM IONIZED (BEAKER) (test 1.07 mmol/L 1.12-1.27 L code = 698) PH, BLOOD (BEAKER) (test code = 7.45 1810) PROTHROMBIN [id number] 06:00:00 Test Item Value Reference Range Interpretation [...] for patients wiht mechanical heart valves.Prepare Leuko-Red [id number] 23:54:00 Test Item Value Reference Range Interpretation Comments Unit ABO (test code = 6593523) O Pos UNIT NUMBER (test code = [id number] 934-0) Status (test code = 4911388) TX_TIMEINCHART Blood Bank Product (test code PLATELETS = 2263) PRODUCT CODE (test code = D1264H28 933-2) [facility] W/PLT COUNT & AUTO [id number] 10:35:00 Test Item Value Reference Range Interpretation [...] CONCENTRATION Decreased (CELLAVISION)(BEAKER) (test code = 3438) Millinery Teacher ID - 6000Operator ID - Lizett OverholtUser comments: Slide comments: [id number] 10:05:00 Test Item Value Reference Range Interpretation Comments Cortisol, Total (test code 1.6 ug/dL 3.7-19.4 L = 2755) VALENTE (test code = VALENTE) Millinery Teacher ID - MITCH L Lab Interpretation (test Abnormal code = 80076-2) [facility] PeninsulaCORTISOL2020-06-27 10:05:00 Test Item Value Reference Range Interpretation Comments CORTISOL, TOTAL (BEAKER) (test code 1.6 ug/dL 3.7-19.4 L = 2755) Millinery Teacher ID - MITCH LDirect AHG (KRISTI)/Direct [id number] 07:49:00 Test Item Value Reference Range Interpretation Comments Direct AHG-IGG (test code = 1006-6) NEGATIVE Direct AHG-C3B, C3D (test code = NEGATVIE 1003-3) [facility] PeninsulaABORH, [id number] 07:37:00 Test Item Value Reference Range Interpretation Comments ABO Grouping (test code = 2588) A Rh Factor (test code = 2589) POS [facility] PeninsulaCALCIUM, [id number] 06:31:00 Test Item Value Reference Range Interpretation Comments CALCIUM IONIZED (BEAKER) (test 1.10 mmol/L 1.12-1.27 L code = 698) PH, BLOOD (BEAKER) (test code = 7.44 1810) BASIC METABOLIC [id number] 06:20:00 Test Item Value Reference Range Interpretation [...] S NOT APPLICABLE FOR DIALYSIS PATIEN TS. Millinery Teacher ID - MITCH RUTHERFORDpecimen moderately qwxgrzjWHYFTDBBT1182-62-16 06:12:00 Test Item Value Reference Range Interpretation Comments MAGNESIUM (BEAKER) (test code = 1.7 mg/dL 1.6-2.6 627) Millinery Teacher ID - MICTH LHEPATIC FUNCTION [id number] 06:12:00 Test Item Value Reference Range Interpretation [...] (test code = 10 U/L 6-55 347) Millinery Teacher ID - MITCH Goetzimeyahaira moderately ictericPROTHROMBIN TIME/[id number] 05:48:00 Test Item Value Reference Range Interpretation [...] is2.5-3.5 for patients wiht mechanical heart valves.Renin, [id number] 22:50:00 Test Item Value Reference Range Interpretation Comments PRA,LC/MS/MS 1.51 ng/mL/h 0.25-5.82 This test was developed (test code = and its analyti steven 4982900) performance characteristics havebeen determined by [facility]an [facility].It h as not been cleared or approved by FDA. This as say has been validatedp ursuant to the CLIA reg ulations and is used for clinical purposes. VALENTE (test Performing Lab code = VALENTE) [facility] [address] [address] [address] Mark Encarnacion MD, PhD, AMINA [facility] PeninsulaBody fluid cell count with faspvxaejcpo7147-39-08 18:33:00 Test Item Value Reference Range Interpretation Comments Appearance (test code = 9335-1) Hazy Clear A Color (test code = 6824-7) Cele Colorless, Straw A RBCs (test code = 56260-4) 4000 <=1 /cu mm H Adjusted WBC Count (test code = 86 <=5 /cu mm H 27057-3) Lining Cells (test code = 1 <=1 /cu mm 22262-4) % Segs (test code = 06507-1) 7 % % Lymphs (test code = 38641-6) 83 % % Monos (test code = 52128-1) 10 % % Eos (test code = 23755-8) 0 % % Baso (test code = 57204-0) 0 % Container Body Fluid (test code Sterile Vial = 2873) Lab Interpretation (test code = Abnormal 28479-3) [facility] PeninsulaBODY FLUID CELL COUNT WITH [id number] 18:33:00 Test Item Value Reference Range Interpretation [...] = 2873) Peripheral Blood Smear - Hold [id number] 15:19:00 Test Item Value Reference Range Interpretation Comments Peripheral Smear Save (test code = saved 1815) [facility] PeninsulaPERIPHERAL BLOOD SMEAR - HOLD [id number] 15:19:00 Test Item Value Reference Range Interpretation Comments PERIPHERAL SMEAR SAVE (BEAKER) (test saved code = 1815) [id number] 14:41:00 Test Item Value Reference Interpretation Comments Range Aldosterone (test 22 ng/dL Adult Ref erence code = 7132831) Ranges for Aldosterone: Upright 8:00-10 :00 am < or = 28 ng/ dL Upright 4:00-6: 00 pm < or = 21 ng/ dL Supine 8:00-10 :00 am 3-16 ng/dL Th is test was developed a nd its analytical perf ormance characteristics havebeen determ ined by [facility] .It has not been cleare d or approved by FDA . This assay has been validatedpursua nt to the CLIA regula tions and is used for clinical purpos es. VALENTE (test code = Performing Lab VALENTE) EZ [facility] [address] [place] [address] Mark Encarnacion MD, PhD, AMINA [facility] Spot [id number] 13:05:00 Test Item Value Reference Range Interpretation Comments T-Spot TB (test code = 73633-4) Negative Neg Ctrl Spot Count (test code = 0 93654-8) Panel A Spot (test code = 15139-5) 0 Panel B Spot (test code = 75019-1) [address] (test code = 0 58107-2) Scan Result (test code = 1113941) [facility] [id number] 13:05:00 Test Item Value Reference Range Interpretation Comments T-SPOT TB (BEAKER) (test code = Negative 1683) NEG CONTROL SPOT COUNT (BEAKER) 0 (test code = 1684) PANEL A SPOT (BEAKER) (test code = 0 1685) PANEL B SPOT (BEAKER) (test code = 0 1686) POS CONTROL SPOT CT (BEAKER) (test 0 code = 1687) SCAN RESULT (test code = 2418705) BLOOD [id number] 13:00:00 Test Item Value Reference Range Interpretation Comments CULTURE (BEAKER) (test No growth in 5 days code = 1095) BLOOD [id number] 12:00:00 Test Item Value Reference Range Interpretation Comments CULTURE (BEAKER) (test No growth in 5 days code = 1095) [id number] 10:25:00 Test Item Value Reference Range Interpretation Comments CORTISOL, TOTAL (BEAKER) (test code 5.1 ug/dL 3.7-19.4 = 2755) Millinery Teacher ID - TUAN CCOMPREHENSIVE METABOLIC [id number] 10:23:00 Test Item Value Reference Range Interpretation [...] S NOT APPLICABLE FOR DIALYSIS PATIEN TS. Millinery Teacher ID - TUAN CSpecimen moderately ictericVaricella zoster antibody, IgG 2020-01-21 10:15:00 Test Item Value Reference Range Interpretation Comments Varicella IgG (test 3.6 code = 68486-6) VALENTE (test code = VALENTE) VARICELLA ZOSTER RESULT INTERPRETATIONS: <=0.8 Al Nonreactive: Presumed non-immune to VZV 0.9-1.0 Al Equivocal >=1.1 Al Reactive: Presumed immune to VZV [facility] antibody, [id number] 10:15:00 Test Item Value Reference Range Interpretation Comments Rubella IgG Quant (test 127.0 <8.0 IU/mL H code = 8014-3) VALENTE (test code = VALENTE) Rubella IgG Result Interpretation: </= 7.0 IU/mL Negative - Presumed non-immune 8.0 - 9.9 IU/mL Equivocal >= 10.0 IU/mL Positive - Presumed immune Lab Interpretation (test Abnormal code = 99915-3) [facility] PeninsulaRUBELLA ANTIBODY, [id number] 10:15:00 Test Item Value Reference Range Interpretation Comments RUBELLA IGG QUANTITATION (AKER) 127.0 IU/mL <8.0 H (test code = 572) Rubella IgG Result Interpretation: </= 7.0 IU/mL Negative - Presumed non- immune 8.0 - 9.9 IU/mL Equivocal >= 10.0 IU/mL Positive - Presumed immune VARICELLA ZOSTER ANTIBODY, [id number] 10:15:00 Test Item Value Reference Range Interpretation Comments VARICELLA ZOSTER IGG (AL) (AKER) 3.6 (test code = 3197) VARICELLA ZOSTER RESULT INTERPRETATIONS: <=0.8 Al Nonreactive: Presumed non-immune to VZV 0.9-1.0 Al Equivocal >=1.1 Al Reactive: Presumed immune to VZVReticulocyte [id number] 10:12:00 Test Item Value Reference Range Interpretation Comments % Retic (test code = 5.3 % 0.5-1.7 H 72548-6) VALENTE (test code = VALENTE) Millinery Teacher ID - [id number] Lab Interpretation (test Abnormal code = 63821-0) [facility] PeninsulaRETICULOCYTE [id number] 10:12:00 Test Item Value Reference Range Interpretation Comments RETICULOCYTE COUNT PCT (BEAKER) (test 5.3 % 0.5-1.7 H code = 575) Millinery Teacher ID - [id number] 10:06:00 Test Item Value Reference Range Interpretation Comments PHOSPHORUS (BEAKER) (test code = 3.1 mg/dL 2.3-4.7 604) Millinery Teacher ID - TUAN [id number] 10:06:00 Test Item Value Reference Range Interpretation Comments MAGNESIUM (BEAKER) (test code = 1.7 mg/dL 1.6-2.6 627) Millinery Teacher ID - TUAN CHEPATIC FUNCTION [id number] 10:06:00 Test Item Value Reference Range Interpretation [...] (test code = 12 U/L 6-55 347) Millinery Teacher ID - TUAN CSpecimen moderately ictericRAD, CHEST, [...] Walker Verified Date/Time: 01/21/2020 10:03:32 Reading Location: [facility] Reading Room XR chest 1 view portable / [id number] 10:03:00 Interface, External Ris In - 01/21/2020 [...] Walker Verified Date/Time: 01/21/2020 10:03:32 Reading Location: [facility] Reading Room [facility] W/PLT COUNT & AUTO [id number] 09:59:00 Test Item Value Reference Range Interpretation [...] PERCENT (BEAKER) (test code = 2801) PROTHROMBIN TIME/[id number] 09:53:00 Test Item Value Reference Range Interpretation [...] MDReport Verified Date/Time: 01/21/2020 07:51:30 Reading Location: [facility] Diagnostic Imaging Reading Room - [place] [address] MR abdomen without IV contrast 2020-01-21 07:51:00Interface, [...] MDReport Verified Date/Time: 01/21/2020 07:51:30 Reading Location: [facility] Diagnostic Imaging Reading Room - [place] [address] [facility] Type and screen, [id number] 22:06:00 Test Item Value Reference Range Interpretation Comments ABO/RH AUTOMATED (BEAKER) (test A POSITIVE code = 2260) Ab Scrn (test code = 890-4) NEGATIVE [facility] PeninsulaRAD, CHEST, 1 VIEW, NON [id number] 21:16:00 Referring: Dr. Rowdy Zhang for exam:->JVD [...] MDReport Verified Date/Time: 01/20/2020 21:16:28 Reading Location: [address] Transitional Reading Room Cryptococcal [id number] 11:36:00 Test Item Value Reference Range Interpretation Comments Cryptococcal Antigen, Serum Negative Negative, Interference (test code = 28043-1) Lab Interpretation (test code Normal = 29326-6) [facility] PeninsulaCRYPTOCOCCAL [id number] 11:36:00 Test Item Value Reference Range Interpretation Comments CRYPTOCOCCAL ANTIGEN, SERUM Negative Negative, Interference (BEAKER) (test code = 1828) CBC W/PLT COUNT & AUTO [id number] 09:56:00 Test Item Value Reference Range Interpretation [...] CONCENTRATION Decreased (CELLAVISION)(BEAKER) (test code = 3438) Millinery Teacher ID - [id number] ID - Lizett OverholtUser comments: Slide comments: COMPREHENSIVE METABOLIC [id number] 05:46:00 Test Item Value Reference Range Interpretation [...] S NOT APPLICABLE FOR DIALYSIS PATIEN TS. Millinery Teacher ID - PIAYA LSpecimen moderately [id number] 05:37:00 Test Item Value Reference Range Interpretation Comments PHOSPHORUS (BEAKER) (test code = 2.8 mg/dL 2.3-4.7 604) Millinery Teacher ID - IMTCH [id number] 05:37:00 Test Item Value Reference Range Interpretation Comments MAGNESIUM (BEAKER) (test code = 1.9 mg/dL 1.6-2.6 627) Millinery Teacher ID Mercedes MEYER LHEPATIC FUNCTION [id number] 05:37:00 Test Item Value Reference Range Interpretation [...] (test code = 9 U/L 6-55 347) Millinery Teacher ID - MITCH LSpecimen moderately ictericPROTHROMBIN TIME/[id number] 04:53:00 Test Item Value Reference Range Interpretation [...] is2.5-3.5 for patients wiht mechanical heart valves.CALCIUM, [id number] 04:45:00 Test Item Value Reference Range Interpretation Comments CALCIUM IONIZED (BEAKER) (test 1.14 mmol/L 1.12-1.27 code = 698) PH, BLOOD (BEAKER) (test code = 7.36 1810) Sodium, random [id number] 00:37:00 Test Item Value Reference Range Interpretation Comments Sodium Urine (test <20 meq/L code = 2955-3) VALENTE (test code = Reference Range: No VALENTE) NormalsOperator ID - PIAYA L [facility] CenterODI[facility], RANDOM [id number] 00:37:00 Test Item Value Reference Range Interpretation Comments SODIUM URINE (BEAKER) (test code = < meq/L 243) Reference Range: No NormalsOperator ID - PIAYA LUrinalysis w/Microscopic 2020-01-20 00:30:00 Test Item Value Reference Range Interpretation Comments Color, UA (test code = Yellow 5778-6) Clarity, UA (test code = Hazy 5767-9) Specific Brush, UA (test 1.017 1.001-1.035 code = 5811-5) pH, UA (test code = 5.5 5.0-8.0 5803-2) Protein, UA (test code = 20 mg/dL Negative A 85412-2) Glucose, UA (test code = Negative Negative 365) Ketones, UA (test code = Negative Negative 2514-8) Bilirubin, UA (test code = Negative Negative 73125-7) Blood, UA (test code = Small Negative A 01457-3) Nitrite, UA (test code = Negative Negative 5802-4) Leukocytes, UA (test code Trace Negative A = 5799-2) Urobilinogen, UA (test 0.2 mg/dL 0.2-1 code = 62832-0) RBC, UA (test code = 1 /HPF 02481-0) WBC, UA (test code = 3 /HPF 5821-4) Bacteria, UA (test code = Rare 60088-5) Squam Epithel, UA (test 3 /HPF code = 12913-9) Hyaline Casts, UA (test 3 /LPF code = 53837-4) Specimen Source (test code = 2795) VALENTE (test code = VALENTE) Millinery Teacher ID - [auto]Millinery Teacher ID - tech Lab Interpretation (test Abnormal code = 84320-9) [facility] PeninsulaUrinalysis w/Microscopic + Reflex to Culture 2020-01-20 00:30:00 Test Item Value Reference Range Interpretation Comments Color, UA (test code = 5778-6) Yellow Clarity, UA (test code = 5767-9) Hazy Specific Brush, UA (test code = 1.017 1.001-1.035 5811-5) pH, UA (test code = 5803-2) 5.5 5.0-8.0 Protein, UA (test code = 60458-9) 20 mg/dL Negative A Glucose, UA (test code = 365) Negative Negative Ketones, UA (test code = 2514-8) Negative Negative Bilirubin, UA (test code = 56192-3) Negative Negative Blood, UA (test code = 28984-7) Small Negative A Nitrite, UA (test code = 5802-4) Negative Negative Leukocytes, UA (test code = 5799-2) Trace Negative A Urobilinogen, UA (test code = 0.2 mg/dL 0.2-1 93681-9) RBC, UA (test code = 31937-6) 1 /HPF WBC, UA (test code = 5821-4) 3 /HPF Bacteria, UA (test code = 63070-4) Rare Squam Epithel, UA (test code = 3 /HPF 68810-8) Hyaline Casts, UA (test code = 3 /LPF 52243-4) Specimen Source (test code = 2795) Lab Interpretation (test code = Abnormal 74960-3) [facility]INALYSIS W/ REFLEX URINE [id number] 00:30:00 Test Item Value Reference Range Interpretation [...] SOURCE(BEAKER) (test code = 2795) URINALYSIS W/ [id number] 00:30:00 Test Item Value Reference Range Interpretation [...] /LPF 514) SOURCE(BEAKER) (test code = 2795) Millinery Teacher ID - [auto]Millinery Teacher ID - techActin (Smooth Muscle) Antibody, IgG [...] of patients withautoimmune hepatitis (AIH) type 1, smvlxtuzwzixk37 % of patients with autoimmune cholangitis,lis sherine mately 30% of patients with primary biliarycirrhosi s, and approximate ly 2% of healthy people.High beatriz ues are closely correlated with AIH type 1. VALENTE (test code = Performing Lab VALENTE) [facility] [address] [place] [address] Mark Encarnacion MD, PhD, AMINA Lab Interpretation Abnormal (test code = 45021-2) [facility] PeninsulaZinc2020-06-24 20:06:00 Test Item Value Reference Interpretation Comments Range Zinc (test code = 39 60- 130 mcg/dL L This te st was ) developed and i ts analytical performance characteristics have been determined by [employer] . It has not been cleared or appr jean-claude by theFDA. This assay has been validated pursu ant to the CLIA regulations and is used for clinic al purposes. VALENTE (test code = Performing Lab VALENTE) *BEATRIZ [facility], [address] [place] [address] Jorje Jauregui MD, PhD Lab Interpretation Abnormal (test code = 68482-0) [facility] PeninsulaTissue [id number] 16:12:00 Test Item Value Reference Range Interpretation Comments Case Report (test code Surgical Pathology = 104) Report Case: [id number] Authorizing Provider: Sylvie George MD Collected: 01/17/2020 08:15 AM Ordering Location: [address] Received: 01/17/2020 01:50 PM Service Pathologist: Humaira Mendez MD Specimen: Duodenum, biopsy ADDENDUM (test code = o1uyiZSeAEJwgTAkJqCgOG 3381) ImKHYnc9srFOZufSYaGjIv MzNcZnRuYmpcdWMxXGRlZm Pxt5cwi076eNXbc0dfWNOz BjD2fOWiWTFfnQBmV576NF TgOXute4dhl1UfTPFnfJZy o6X9QRVKgepllGr1xDomS2 9gw4A6SeasA2dxUGAkPVLt N0JoAT0uTHZnChc9LLQ5UP Q6PGKuNNKcQ8RcFR4tAOZv yHYbVYp9j3duqKuzZMTkGB X3q3mtGVpkznQqGA5fqf0r pYv1f3zfykIaUCVjVJDtsU PNYOIhA7ZzdTdoIa6twDi2 gNshUzcuJPE3Yey9VF2nkg 00whm6sPyxYGEjonzlZkQ1 NHtrSWGetaceJNx7CZtwUB FblTT1ICPpjBShQ0JgSOMj VJ3uukk4DXF3UNwzZKRcUl O2RHEzqUYpZMVciDgtJEvf h078PEB1HaWiTV0hC5Sqn8 X8oX3jbVYpFMKscXXpLvMx UTSygi9xkWUbOGhop5QfEU Y5ouZ1tLNddMEyKRAcVF44 Xqcnq4RjUnrcCKU6TVNqgz Bjc1Jjj8igLpUqhxYxS1gn B1OzKQBdBFQdMHZuJiCjcd Mls3Vmn4ZcaKIclBe7s0dr DBBcMUBecDezx6qiWLT3TG OfQ2Z2lDMaw5yqPQbuZDEy yZI7zbI1BGJxtBWoW7ArzU 1hPZDgVP4nbzv2m1ejFPX9 BMrkQOAjAgT3njP5RSXtgW DvGJBpgMneUApll968ZKL7 YhZuWGXvg3YvR3PbpTkyZ7 2rlXenK82gSIIwdHbygR2o hIsuoR6rAdPsRkMhXFzoBU JkXHBsYWluXGYxXGZzMjBc bGFuZzEwMzNcaGljaFxmMV lpHaMoVTPeLJpmA9adLhUn IuBhOPUOUIyNTHZYLR3MRA 1ARDgDPWwLW0GQUKTPQjJQ RVBPUlQgVEhFIEZJTkRJTk dTIElOIFRIRSBERUVQRVIg ZCTVQXhQOX6EQCUTPGWEPA 1WW9qdGS8FEQaHAuMmUTfK IAIJFeCDJYQEWLnGA1LVVn pccGFyXHFsXHBsYWluXGYw BKVgYsVruOwekG9oQgWtZz WwJHvfYL3zVRJoV6upxJKk SOSdXNVvH3tlYvPfrF0ocH xmMVxmczIwXHBhciAgRFVP OFYALW6xPDPDBE5MF14EKM MgQklPUFNZOlxwYXIgICAt HXMBOXCCRQXnVgZMH3IFLs DKYhVGFLIrJFTAUJ2QIZND M7IYCTKtGGVCN8nUF8PJPa RmH5PpOE2KMUFLHKMPH1MQ Ud9DGVHAFDwiXLLqDVYiFR 5TPXDRVMOMQbOIXM9MEIUO TElBQyBESVNFQVNFIFNFRU 5ccGFyICAgLSBOTyBHUkFO VUxPTUFTLCBEWVNQTEFTSU EwN6OpGQXAUNeFBQ9BBUQA RUVOXHBhcn0= DIAGNOSIS (test code = a3vxpEXnIVHgz3wwXGQlaP 3220) FuZzEwMzNcZnRuYmpcdWMx CWvvvyHlHErfj7EdZ4RgRl AwMFxhbnNpXGRlZmxhbmcx DTRfKUJ5pzDiUTTrCDqeUS CjSFneXp2jlKAgaDeyZkEw OYKfl9srdjDKqnriwRr4l6 vsRWNxZiR5xJIvDDzsT2ly ckHzvNAoZSCiRQh4eO11OW TgjH8pfITfMPlczzZfEhB9 VElhOFFhPqK2CZArcNCaYY QmU3rdEFSvONdhEGLnXIro eWHzEYI4vLalo0I7yCFffJ BjdLeqQcTmGlTfKRGKh2Pb HLw2xUojE8HmMFXcDqV9xX QgUGFyYWdyYXBoIEZvbnQ7 aT55NYpiwmL0dBNjw2Xsj2 0nv594nW0vkAJiMAE9HNHw JNNrpEBcDWRrFVZ8LYOdqI TaE7p8EjZrrYMtY4P7RvIw yWQbD8F0MbWtzOXdV3X9Lr OwyPZwKPKtoUIaPe2txRWj eBWssq5pcf68FVL0n3CmmQ yoQNR4EUY6ZtLiZw3ndGZb XAQzIL4pUwIrbXMgFCWfnn 01jVdgKPvwttBncL9hYnPe BSBcwFLpJQRfHF9frQBpAS JtrG9lrpetZSFgCfRkipos BUQsrEbjzrWdQg7scJufBP U3QDxgE0awlX6tPnM8ZYyx P6hfdL1aCJp4UWbsmQS1EK DidL6xYC2pansuw6ilLgGr KV1uevdtd9ctDnOcOE8mab u9z8wpPxMbKZ1yqnfnv0fo NzIwXGhlYWRlcnkwXGZvb3 SvcbxaUCVqz0IhN1YueEdw W86loFzeG59eRVGtbRoxsP 9eqTcqqK2xMaQuAvWiWEay bFxwbGFpblxmMVxmczIwXG atnjcnMYSzCLxaW2feVaIy IBHsgGnuPQjbl9ZaJEGoEN DtXmBaTKWJNWJBXK1pFWDG GV5NW00MJNChRrpKGBNJSc ayOCGzZBZhH7HZHTCIGBAN TJsoCaNBF09DXeQUOJ0VQR NXJEsFRSKRR7QIDV5XZ16W JCYDNRIPFTaDX2ISDBRlUs 3KPY0BIFHpKUJRDXINQZHK YBdoETOunIFwGHIqnf98AM L3EzKny8P7QYK5BCAyLGGb b8xiKOGlgDUxIdXfZrMaZc ThVwplqTHqLFLyHxVjb9wt z596jAQzq8ylKHXtBcO0uS FdZSDpyDQoP849ZMPbJKfw e9tsb5LbMHJfiZQwc3J8QC KMdcpgmAg1mKocT91iu4T0 ZnmiZ5fvRTFmSDCgD2HqKZ 0oVBGnMvh6VOV5BLF2MUEi QYLeP5ZmMW3yEIEddXNcBJ a0h8fueMdbBJEkVRM1u1qi VTcgkzNtAC0ntd3mnRv0j3 xjczEgRGVmYXVsdCBQYXJh H2RbqObgUz6wrOh0pOlfJs qkUPU1Cto7SC8yij46zlp9 jOncUNUqvwqzLkH2IHtoKM EnifxlNDu5UFduNQJvzNB8 SNZvcALaL1OlEQKnFV7waz t1APO8WQwxELClGrH6EBOu uMOaRRKxfLgcVRojy603AO I2GpQdDO2wR3Fxr3Z3sE7j aXRcZGVmdGFiNzIwXGZvcm 1rkMIkSUljj8WnHOQ5jwD0 rYLsuZQuUHCgMmH6CScwCD 1lfd68HZMgTCV4xi6avOFc bNarbmKjzUIkKEioU9YmBS Elj678JPIqG0DlBOPpj2R4 ivRyMgOoICTxaPK9keB3CW ClQB8kzlnaz8ttKPjrHUhn EDDzdfW6krJ5RUKpoYCcU1 GxrP6eCPLzUY8vxbvzy0vf SZY4WXvcHAUrKTA4GcCqAR Fwn5Yewxs8AgDce7OdsASl GZhhK31he786WHHueyFgO1 xwbGFpblxwbGFpblxmMFxm avZ4ZZDvFUetroajWCFgYA zpC2clOqRgUBBkaNdjDMdf p4NlKLGaBBRpQeLypMToWK SmNum8PNZiaOTzFWJoZfZd T5agkxvsMeZBIFJxu4evQ7 speTMOlLBhC7CzVOosltFz ADuzZYanQPY5KAL0So50Jn C9AUJhyi14 CPT Code(s) (test code w9gzfWSvDXPycGZmMgGvKP = 3357) MtFVDti6biKQSvyPVaNcMr MzNcZnRuYmpcdWMxXGRlZm Ybx7dvn976mSUne8jfWSDb VeM4oFWhMUDcvIAdK954i7 mpf9oivpZamLO4QULmMMP2 TRiixoGeqsD8OPvbqUOmSq J3WIisxcEkIKxbuqDldjWl Pht3RDPiZ412UTF3bMxma9 hxCAG4KGVfSQYtZmKcCq7h rBAmM380VSHbWNQAPEYblC m8EAXcdkLnizMggCFSu342 A333u1bwKAFfhrDjfZvKsv iws7kcM431VVWhuVWzowDi OpDsFJAxtDMcnBK8IEMgUC 4bidbtJzFyLW6kxfliXhFg KP1ccso3PvSjJJ8zzyjxOv XlJQoaVIRazkwjYKCnv9Jy pnrgYV3bL4Zjn1L7kG2fdU DqOZDfoPTyUhEaJEUbcj8k gXLfLHysg6SjZGD0lpF5kD DtsAYrKBWkGT90Tyyrf0Oj OuxeLZH1TBDkslJuc2Cih2 fjQkKilcSbA2qaZ4OpSXMg PQHbXFRxRtEcvlXjv8Amt5 MzkMOrhMq0e9niAIQgOQCj ePqbm2qeFJB3JOAeB6A9xT Veu0ekHJriNZPyyTT0yhfl IYruWQGdazO2xphlJAulKC JtnPQ1dqytZRkfENWqNlR4 khwaDIcsAHWaHBI4HLabu6 48CZW7XGlqXetuBTnpUJRj bmNvbnRccGduZGVjXHBsYW luXHBsYWluXGYwXGZzMjRc zXslvIckrO2mUuKjVgHxJL gdIB6eWHLjK8akkNSoAANx TRNhY4wkZoYbyA9taNajUD erfoHuPXv9IzN4ZOGjjs1= CLINICAL HISTORY (test h0bvjXKoCXIaoZBjZgShQH code = 3358) UgGYZpy5hlTYIlrNMyTrRn MzNcZnRuYmpcdWMxXGRlZm Dcm9yfe788nVXiu8vlTUOx PjD6fNOfKNRlhUYkS452HJ GsVZunw6rlw9XnENDtbHJt c0N1PITFznfqlOz4yTwjY0 8nk9O4OisdD3hxCYPjYBfm AOShNEuwiYMmGEC9OGOiUS U2ZFudxfXoklN3XGvcaXUq RzI8NLc9h6maqOlcWDDbBU T8m7qhPGfaxcWtHO5ikr4p xSy8b9pqebVqBVKxFDZvnJ IVGUPtL9NndAboDw2ohHd0 yUnyNppvUDC4Wmm4PC9hth 68xkw3jVarSXVfhtztCkO1 FMckCOZitlyqDOe8HCplSK JnbDcyMFxtYXJncjcyMFxt YXJndDcyMFxtYXJnYjcyMF jdMCYcGSI5HYbho847TOX8 PFsxd8hur6aydFDhUsd4WF ViXbAyOsitVGfsc7Kdj8tq IRXoww2zUFL7lFUpkSzhk4 I7xXFtNGFteGKgngIzNCGo YuH9EUehKF0mih01SKJcSI J8gl9xbIPstAreyvBhfLGg MKqqX1ElQQIja956COOjL3 OwTTHqa7O3gmDjScAkCRCa tQG6awR9LNPlOLf6uNYooc B6xqUqyIEsH2xqnT68MuDs xACcT6CyjO97CmCerZIeU3 KyxR40JtNjcOSzU2MrfQ68 CjYmfHTaSKGruFLmDb8ntY FpoYQwt1EtbHMsJFpfI13b g335AYTcuoBoI4ejlWIatr xwbGFpblxmMFxmczIwXHFs XHBsYWluXGYwXGZzMjBccG jomP9kXmXhUtOuFWZHre1q KJM2vvM7YEFrhVImGFEeGF 0gT56llGmnVmlwkQS4UEHf MQZpi0vvin3bX99haEUnyC BrWRTiBZGfqrStwL9buG6j USKhONbwv9IhdgraPM3ewA lhXHBhcn0= SPECIMEN SOURCE (test l6cnuKFaLGEkpWPcCySuWJ code = 3377) ErGBJry7tpLADqvTWoFwLp MzNcZnRuYmpcdWMxXGRlZm Wff1ine212cVSmu4huMUKs KkY3nOXtGWNvvDWrY442s7 ewk5jizuXlrQL5UYSxPJP2 XKhztcZcrbA4HKhxpTFlIy N6LQsbnmShNAmrxvJizxQp Swo7WANqG858TIR5sHvng3 mtCLS2ZJGfSKVsPaUzZr3p vHCwQ351MMYtUXDFPEAuuW a5WBHervOlzyByiDHLd094 O111c9kbLNShlaRmaCcArh vlc8qxF687LKHoqEGqvmMw IeCiWNQkeDRusFY5IOPoCK 4yiqwcGoFaDF4slulnExZu GN0lyax5TjQfCW3wtqtiHu TkEErqZKCsdebuNRGuz7Mh vrkcYA3vG6Mut6R3iG8gtT BkOGUacVCfMhVjZYThzu2w jZPdTOyqn2OaOYU6loS1sG WkpWYvWBGhTS15Watwc3Un KplpOOU5MDTlafVzb3Ewm1 fjRlPvyfSmN0inZ2LuIXQp DLFnVPDjLmAwuiEim6Qtb0 ElrQUidUf7k0ngTBFuDKAf vEssv3mwLGA6YOFfY3L2cP Zkd6btJUdvTCCjeFL8dkzq DLjlDYChorF0lzrrYQtpKF OgmAK0twabDZtiWPXbQpN4 uppxPQsrZDXbQRN3LXuih2 82QHL2UTezPyabFTimQJUm bmNvbnRccGduZGVjXHBsYW luXHBsYWluXGYwXGZzMjRc qAsywCieaB9iSeEwEuTjQW cmYI7xVCZdO3fhxEFvBOIe ISJpP3bdJmFqmA0qwAidGY pywrFtXWGxIHX9f2AjswTf MqSarA5xn3pwxFFhqW== GROSS DESCRIPTION (test e0xplRNjVVAhzPVwDaGwBW code = 3366) YhEWVca2fbRRXduXFaYpSj MzNcZnRuYmpcdWMxXGRlZm Xcc6jko907dYZjo1azSNRl CjH3sOXuLSBfdHFvQ190BC XcVCgfy3dgz0PbZLPweNRw z6J7DKVCjomdePa7vVnwC5 5qf5K2FyjzU2rwMMGdTIie IYUnYEeywNCwNTP7LAPrRA P2XDmahgIirjG1NNetgMUx MpN4FYt1p6xjtUxeCFClMM W9p6atYRphohEcSB8pcx0r jLz0i7imkqKmGQVvFYHfnZ SJLUTsI7JwzPkfFg5qcJy9 aNkaJtbbUVR9Xyy8IF1bga 59rks5fTrxUVVydtjpMrY2 IUbfBSUkwmpbLLa8ZXqhCP JnbDcyMFxtYXJncjcyMFxt YXJndDcyMFxtYXJnYjcyMF hxUSUeVGR8QMaix352YXM4 BJynq8wuv9bwuORyUph4AZ MmRkDpIvxuTXqyh3Wat3gx STQtyk1xHRJ9vEWyhPlck9 R8sSXvYUCzxZFvnrInKTPp HdT9RSwuWQ3yky08SQXuLV B7wi5kzLYzqEptkzKaaSXr GXmwS6MvKALby019USDdZ1 UzEWDny7N1spBpLcJoYEYh kCU2bhD6QSDwBVh1kLKulh D9ydFsmYRiE6blpQ92AwXo wKSwT9OabJ73WzOpbUGtR8 NrfB27SeStcRGzL6EyiH49 GoNqpPInJMMxcPFeLt0irI PszODgf7LwfJGoPLnrU00g m811HDHusuRvK2tzsRNitz xwbGFpblxmMFxmczIwXHFs XHBsYWluXGYwXGZzMjBccG fnpV3jEhOiQaShPDWMQqSN lMYdi7XuL9nnAH0enXNouo IaCQs7OAWagC8zOq3ngORt iF8kFOJbUJqdHCGhSHHsIx PbmTYpKWsuRTZ3gIEoPTJl GMNsNUOzXF49A0HwhjNuCQ asUEGmTQIdoN4bEG79fPNm ciBhbmQgIlxwbGFpblxmMF dvpkGdQXT1n3LwnqWdVrEa pxRvX46ic8fvhSZbb0Xab0 5vHMOpxy4hbU9zHEezzCIi ypajWUtytyPxVJ13F38hDD mwC153WHTrLAdwbXNciqkh MFxmczIwICBwaWVjZXMgb2 QzmOezk8WgPP9eTOL0qehs ZyAwLjMgeCAwLjIgeCAwLj MkG62jVJldzLZkbgqnAXyp faEoCBDgQICscSVgwT6qnj OgbpFdbFYwcVZ9ONKmOC70 sMWzlTuyHi8wlA44eX8aZE MwrTOuCSCmd06gjS8vCAQa UMJaXHB9CYObnFpxwG8lZn NjCgZcFABLSD7fDZzHM0Tb XHBhcn0= MICROSCOPIC DESCRIPTION o3mozTSvQHYzzBDaOyIyGL (test code = 3371) QfTCOmx0vcZUBfeVYaScEv MzNcZnRuYmpcdWMxXGRlZm Dha9czv943oVNdk6wdCDMs FsI9sOErVWYwvPHyA467j8 hbf8geucXgmDK7DOBzTNB1 WRorczZscgR8XTxxfUSmLu N1ZCpqhvLcQRwbbvKimdCm Sms4KXNaE306PSR7aQntt4 djOYD4HDXvXSJmNjFcUm4c kHIiN305LNWsJRWEITRxvN b3PROjauNitlYghLJAb191 D616p0bbYJMbzoKepDlSvf lun8wbA497PNMokNHbwsHj SuZgTZZflSLmhTO8QIWfXP 9umdnbDtCbGQ4bqdusGdUw OP9nszn8VbGeBK3oxatrRx VtHGzbRBYakpogWAFlq2Jw oogrFJ0yU6Kdx5N4mD9fmS IiWQOfwIOkUtUgVVFkfj1n dXElKUbsk6ScFFW3lwB3tL ZxgIWgBZWyFB06Oozks5Yh CognEMO3RHVcwdVxo4Axu6 vbIqTsmsXoB6xeN1PuBVXs IAJvSNZcAhKntkEgj2Aow6 OpmJYydFr6y7qdUZKxLYJo cMrhj6ydCHB1CQYtV3F4kF Mkk5joHYeqERLmdJS4wiza PBiyVQPlflG0wyklHHpkMI LmjVD3fgznOKkmSDKyXfC8 dznoOHudZDSmFFF1LJqoz2 16LCW7CNvoBaitXJglJGEl bmNvbnRccGduZGVjXHBsYW luXHBsYWluXGYwXGZzMjRc uNlxsTrgeI4hGeGzUzPeUH vjZJ8aLKUyF4ptyIIsRRAa CHTnG0ulTjYymY4grHzrPA yvtpWlWVYEBoCSEb1AOEsm YXJ9 [facility] [id number] 16:12:00Surgical Pathology Report Case: [id number] Authorizing Provider: Sylvie George MD Collected: 01/17/2020 08:15 AM Ordering Location: [address] Received: 01/17/2020 01:50 PM Service Pathologist: [...] FOVEOLAR METAPLASIA Signing Pathologist Direct Phone Line: [phone] signed by Humaira Mendez MD on 01/18/2020 at 3:50 [id number]: upper endoscopy, biopsy and colonoscopy Pre and postop diagnosis: anemiaA. Duodenum; biopsyA. The specimen is received in formalin labeled with the patient's name, accession number and "duodenum" and consists of one garduno-pink mucosal-covered pieces of tissue measuring 0.3 x 0.2 x 0.1cm. The specimen is submitted entirely following filtration in a cassette A1. HS/plPERFORMEDBlood gas, [id number] 16:03:00 Test Item Value Reference Range Interpretation [...] % Lab Interpretation (test code = Abnormal 46439-7) [facility], [id number] 16:03:00 Test Item Value Reference Range Interpretation Comments PH ARTERIAL (BEAKER) (test code = 7.42 7.35-7.45 383) PCO2 ARTERIAL (BEAKER) (test code 36 mmHg 35-45 = 384) PO2 ARTERIAL (BEAKER) (test code 78 mmHg 80-90 L = 385) O2 SATURATION ARTERIAL (BEAKER) 96.2 % 96.0-97.0 (test code = 386) HCO3 ARTERIAL (BEAKER) (test code 23 mmol/L - = 388) BASE EXCESS ARTERIAL (BEAKER) -1.9 mmol/L -2.0-3.0 (test code = 387) PATIENT TEMPERATURE (BEAKER) 36.1 C (test code = 1818) FIO2 (BEAKER) (test code = 1819) 28.0 % [id number] 15:05:00 Test Item Value Reference Range Interpretation Comments Ceruloplasmin (test code 21 mg/dL 18-53 = [id number]) VALENTE (test code = VALENTE) Performing Lab *[facility] [employer] [place] [facility], [address] [place] [address] Jorje Jauregui MD, PhD [facility] PeninsulaCarbohydrate antigen 19-9 (CA 19-9)2020-01-19 12:51:00 Test Item Value Reference Range Interpretation Comments CA 19-9 32 U/mL <34 This test was (test code = performed using the 59018-9) Siemens Chemiluminescen t method.Values o btained from different assay methods cannot be used interchangeably .CA19-9 levels, regardl ess of value, should n ot be interpreted as absoluteevidenc e of the presence or abs ence of disease. VALENTE (test Performing Lab code = VALENTE) [facility] [place] [address] [place] [address] Mark Encarnacion MD, PhD, AMINA [facility] PeninsulaPROTHROMBIN TIME/[id number] 11:28:00 Test Item Value Reference Range Interpretation [...] patients wiht mechanical heart valves.MM, U/S, BREAST, [id number] 09:52:00Referring: Dr. Rowdy Zhang for exam:->liver transplant [...] Jorge Brooks Verified Date/Time: 01/19/2020 09:52:28 Reading Location:[address] Mammo Reading Room US breast [id number] 09:52:00Interface, External Ris In - 01/19/2020 9:54 [...] Brooks Verified Date/Time: 01/19/2020 09:52:28 Reading Location: [address] [facility] WITHOUT [id number] 08:09:00Referring: Dr. Rowdy LopestAnesthesia:->NonePlease specify abdominal organs:->AdrenalFINAL [...] MDReport Verified Date/Time: 01/19/2020 08:09:04 Reading Location: [facility] Diagnostic Imaging Reading Room - [place] [id number] CT abdomen without IV contrast 2020-01-19 08:09:00Interface, [...] Crocker Verified Date/Time: 01/19/2020 08:09:04 Reading Location: [facility] Diagnostic Imaging Reading Room - [place] [address] 112 Electronically signed by: JOHN CROCKER MD on 0 01/19/2020 08:09 [facility], [id number] 07:59:00 Test Item Value Reference Range Interpretation [...] by Shaq GARCIA MICHAEL(150) on 01/19/2020 7:03:55 [facility]EL 2020-01-19 05:21:00 Test Item [...] S NOT APPLICABLE FOR DIALYSIS PATIEN TS. Millinery Teacher ID - LASpecimen moderately iatrcteLSCHWYZNZL8571-05-89 05:04:00 Test Item Value Reference Range Interpretation Comments PHOSPHORUS (BEAKER) (test code = 3.3 mg/dL 2.3-4.7 604) Millinery Teacher ID - QRABGBZYIOX1725-08-76 05:04:00 Test Item Value Reference Range Interpretation Comments MAGNESIUM (BEAKER) (test code = 2.0 mg/dL 1.6-2.6 627) Millinery Teacher ID - LAHEPATIC FUNCTION [id number] 05:04:00 Test Item Value Reference Range Interpretation [...] (test code = 10 U/L 6-55 347) Millinery Teacher ID - LASpecimen moderately ictericB-TYPE NATRIURETIC FACTOR (BNP) 2020-01-19 04:59:00 Test Item Value Reference Range Interpretation Comments B-TYPE NATRIURETIC PEPTIDE 2455 pg/mL 0-100 H (BEAKER) (test code = 700) Millinery Teacher ID - EDWIN BCBC W/PLT COUNT & AUTO [id number] 04:46:00 Test Item Value Reference Range Interpretation [...] (BEAKER) (test code = 2801) U/S, RENAL, [id number] 01:26:00Referring: Dr. Rowdy Zhang for exam:->Re-examine L [...] Sneed MDReport Verified Date/Time: 01/19/202001:26:59 US renal [id number] 01:26:00Interface, External Ris In - 01/19/2020 1:29 [...] Maira Sneed MDReport Verified Date/Time: 01/19/2020 01:26:59 [facility]Eosinophil [id number] 22:11:00 Test Item Value Reference Range Interpretation Comments Eosinophil Smear (test Rare EOS =less than No EOS seen A code = 74437-0) 5% WBCs seen are EOS Lab Interpretation (test Abnormal code = 47736-0) [facility] PeninsulaEOSINOPHIL SMEAR, [id number] 22:11:00 Test Item Value Reference Range Interpretation Comments EOSINOPHIL SMEAR, URINE Rare EOS =less than No EOS seen A (BEAKER) (test code = 5% WBCs seen are EOS 1851) SODIUM, RANDOM [id number] 22:04:00 Test Item Value Reference Range Interpretation Comments SODIUM URINE (BEAKER) (test code = < meq/L 243) Reference Range: No NormalsOperator ID - EDWIN BCreatinine, random urine 2020-01-18 22:02:00 Test Item Value Reference Range Interpretation Comments Creatinine, Ur 181.3 mg/dL (test code = 2161-8) VALENTE (test code = Reference Range: No VALENTE) NormalsOperator ID - EDWIN B [facility] PeninsulaProtein, random [id number] 22:02:00 Test Item Value Reference Range Interpretation Comments Protein, Urine (test code 45 mg/dL 0-14 H = 2888-6) VALENTE (test code = VALENTE) Millinery Teacher ID - EDWIN B Lab Interpretation (test Abnormal code = 89305-6) [facility] PeninsulaCREATININE, RANDOM [id number] 22:02:00 Test Item Value Reference Range Interpretation Comments CREATININE URINE (BEAKER) (test 181.3 mg/dL code = 375) Reference Range: No NormalsOperator ID - EDWIN BPROTEIN, RANDOM [id number] 22:02:00 Test Item Value Reference Range Interpretation Comments PROTEIN, URINE (BEAKER) (test code = 45 mg/dL 0-14 H 1569) Millinery Teacher ID - EDWIN BURINALYSIS W/ [id number] 22:02:00 Test Item Value Reference Range Interpretation [...] (test Urine, Sterile code = 2795) Collection Millinery Teacher ID - [auto]Millinery Teacher ID - techHepatitis B core antibody, [id number] 16:02:00 Test Item Value Reference Range Interpretation Comments Hep B Core Total Ab Nonreactive Nonreactive (test code = 77096-7) VALENTE (test code = VALENTE) Millinery Teacher ID - CHARO F Lab Interpretation (test Normal code = 00590-9) [facility] PeninsulaHEPATITIS B CORE ANTIBODY, [id number] 16:02:00 Test Item Value Reference Range Interpretation Comments HEPATITIS B CORE TOTAL ANTIBODY Nonreactive Nonreactive (BEAKER) (test code = 497) Millinery Teacher ID - CHARO FECG 12 [id number] 14:19:40Interface, External Ris In - 01/18/2020 2:19 PM CDTVentricular Rate 62 BPMAtrial Rate 62 BPMP-R Interval 138 msQRS Duration 86 msQ-T Interval 452 msQTC Calculation(Bazett) 458 msP Jachin 59 degreesR Jachin 32 degreesT Jachin 56 degreesNormal sinus rhythmLow voltage QRSNonspecific ST jbzlsnliotu30 JUN 2020 11:05Nonspecific T wave abnormality Nonspecific T wave abnormality, improved inQT has shortenedConfirmed by MD FARHAT, JESSEI ([id number]) on 01/18/2020 2:19:38 [facility] Cytomegalovirus antibody, [id number] 13:49:00 Test Item Value Reference Range Interpretation Comments CYTOMEGALOVIRUS, IGG Positive Negative, A (test code = 3429) Equivocal VALENTE (test code = VALENTE) CMV IgG Result Interpretation: </= 0.8 Al Negative 0.9-1.0 Al Equivocal >/=1.1 Al Positive Lab Interpretation (test Abnormal code = 20840-1) [facility] PeninsulaEBV-VCA antibody, [id number] 13:49:00 Test Item Value Reference Range Interpretation Comments GABRIEL CHING VIRAL Positive Negative, A CAPSID ANTIGEN IGG (test Equivocal code = 3415) VALENTE (test code = VALENTE) Gabriel Ching Viral Capsid Antigen IgG Result Interpretation: </= 0.8 Al Negative 0.9-1.0 Al Equivocal >/= 1.1 Al Positive Lab Interpretation (test Abnormal code = 58912-7) [facility] PeninsulaEBV-VCA antibody, [id number] 13:49:00 Test Item Value Reference Range Interpretation Comments GABRIEL CHING VIRAL Negative Negative, CAPSID ANTIGEN IGM (test Equivocal code = 3418) VALENTE (test code = VALENTE) Gabriel Ching Viral Capsid Antigen IgM Result Interpretation: </= 0.8 Al Negative 0.9-1.0 Al Equivocal >/= 1.1 Al Positive Lab Interpretation (test Normal code = 47555-1) [facility] PeninsulaCytomegalovirus antibody, [id number] 13:49:00 Test Item Value Reference Range Interpretation Comments CMV IGM (test code = Negative Negative, 3437) Equivocal VALENTE (test code = VALENTE) CMV IgM Result Interpretation: </= 0.8 Al Negative 0.9-1.0 Al Equivocal >/= 1.1 Al Positive Lab Interpretation (test Normal code = 15036-0) [facility] PeninsulaCYTOMEGALOVIRUS ANTIBODY, [id number] 13:49:00 Test Item Value Reference Range Interpretation Comments CYTOMEGALOVIRUS, IGG (BEAKER) Positive Negative, Equivocal A (test code = 3429) CMV IgG Result Interpretation: </= 0.8 Al Negative 0.9-1.0 Al Equivocal >/=1.1 Al PositiveCYTOMEGALOVIRUS ANTIBODY, [id number] 13:49:00 Test Item Value Reference Range Interpretation Comments CYTOMEGALOVIRUS IGM ANTIBODY Negative Negative, Equivocal (BEAKER) (test code = 3437) CMV IgM Result Interpretation: </= 0.8 Al Negative 0.9-1.0 Al Equivocal >/= 1.1 Al PositiveEBV ANTIBODY, [id number] 13:49:00 Test Item Value Reference Range Interpretation Comments GABRIEL CHING VIRAL CAPSID Positive Negative, Equivocal A ANTIGEN IGG (BEAKER) (test code = 3415) Gabriel Ching Viral Capsid Antigen IgG Result Interpretation: </= 0.8 Al Negative 0.9-1.0 Al Equivocal >/= 1.1 Al PositiveEBV ANTIBODY, IGM 2020-01-18 13:49:00 Test Item Value Reference Range Interpretation Comments GABRIEL CHING VIRAL CAPSID Negative Negative, Equivocal ANTIGEN IGM (KIRK) (test code = 3418) Gabriel Ching Viral Capsid Antigen IgM Result Interpretation: </= 0.8 Al Negative 0.9-1.0 Al Equivocal >/= 1.1 Al [id number] 13:35:00 Test Item Value Reference Range Interpretation Comments T3, Total (test code = 3053-6) 51 ng/dL 48-159 Lab Interpretation (test code = Normal 36466-1) [facility] PeninsulaT32020-06-23 13:35:00 Test Item Value Reference Range Interpretation Comments T3 TOTAL (KIRK) (test code = 656) 51 ng/dL 48-159 PET/CT, CARDIAC PERF REST AND [id number] 12:45:00Referring: Dr. Rowdy Zhang for exam:->pre op cardiac clearance for liver transplantFINAL REPORT PROCEDURE: MYOCARDIAL PERFUSION PET IMAGING (Rest/Stress)CPT CODE: 50259 INDICATION: Evaluation for liver transplant CARDIOVASCULAR PROFILE:Symptoms: [...] prior study for comparison. Signed: Jennifer Melo MDRkizzyort Verified Date/Time: 01/18/2020 12:45:40 Reading Location: [address] P3B Nuc Med Reading Room NM Myocardial Perfusion Pet/CT (Rest & Stress)2020-01-18 12:45:00Interface, External Ris In 01/18/2020 12:47 PM CDTFINAL REPORT PROCEDURE: MYOCARDIAL PERFUSION PET IMAGING (Rest/Stress)CPT CODE: 35866 INDICATION: Evaluation for liver transplant CARDIOVASCULAR PROFILE:Symptoms: [...] prior study for comparison. Signed: Jennifer Melo MDRkizzyort Verified Date/Time: 01/18/2020 12:45:40 Reading Location: [address] P327B Nuc Med Reading Room [facility] HEPATIC FUNCTION [id number] 10:29:00 Test Item Value Reference Range Interpretation [...] (test code = 9 U/L 6-55 347) Millinery Teacher ID - CHARO FSpecimen moderately ictericCBC W/PLT COUNT & AUTO [id number] 08:43:00 Test Item Value Reference Range Interpretation [...] CONCENTRATION Decreased (CELLAVISION)(BEAKER) (test code = 3438) Millinery Teacher ID - [id number] ID - Lizett OverholtUser comments: Slide comments: [id number] 07:29:00 Test Item Value Reference Range Interpretation Comments MAGNESIUM (BEAKER) (test code = 2.1 mg/dL 1.6-2.6 627) Millinery Teacher MABLE CASILLAS FBASIC METABOLIC [id number] 07:29:00 Test Item Value Reference Range Interpretation [...] S NOT APPLICABLE FOR DIALYSIS PATIEN TS. Millinery Teacher MABLE CASILLAS FSpecimen moderately ictericAnti-Nuclear Antibody (REILLY) 2020-01-17 10:54:00 Test Item Value Reference Range Interpretation Comments REILLY (test code = 02281-4) Negative Negative VALENTE (test code = VALENTE) Test performed by IFA method.Test performed by IFA method. Lab Interpretation (test Normal code = 87208-8) [facility] PeninsulaANTI-NUCLEAR ANTIBODY (REILLY)2020-01-17 10:54:00 Test Item Value Reference Range Interpretation Comments ANTI-NUCLEAR ANTIBODY (REILLY) (BEAKER) Negative Negative (test code = 418) Test performed by IFA method.Test performed by IFA method.[id number] 10:49:00 Test Item Value Reference Range Interpretation Comments RPR (test code = 71861-3) Nonreactive Nonreactive Lab Interpretation (test code = Normal 39524-2) [facility] PeninsulaRPR2020-06-22 10:49:00 Test Item Value Reference Range Interpretation Comments RPR SCREEN (BEAKER) (test code = Nonreactive Nonreactive 420) CBC W/PLT COUNT & AUTO [id number] 10:00:00 Test Item Value Reference Range Interpretation [...] CONCENTRATION Decreased (CELLAVISION)(BEAKER) (test code = 3438) Millinery Teacher ID - [id number] ID - Alem Mars comments: Slide comments:BASIC METABOLIC [id number] 05:16:00 Test Item Value Reference Range Interpretation [...] S NOT APPLICABLE FOR DIALYSIS PATIEN TS. Millinery Teacher ID - MITCH LSpecimen moderately [id number] 05:15:00 Test Item Value Reference Range Interpretation Comments MAGNESIUM (BEAKER) (test code = 2.1 mg/dL 1.6-2.6 627) Millinery Teacher ID - MITCH LPROTHROMBIN TIME/[id number] 04:50:00 Test Item Value Reference Range Interpretation [...] patients wiht mechanical heart valves.Vitamin B12 and [id number] 16:46:00 Test Item Value Reference Range Interpretation Comments Vitamin B12 (test code = 1107 pg/mL 213-816 H 2132-9) Folate (test code = 2284-8) 3.40 ng/mL >=7.00 L VALENTE (test code = VALENTE) Millinery Teacher ID - NTP Lab Interpretation (test Abnormal code = 13695-8) [facility] PeninsulaVITAMIN B12 AND [id number] 16:46:00 Test Item Value Reference Range Interpretation Comments VITAMIN B12 (BEAKER) (test code = 1107 pg/mL 213-816 H 774) FOLATE (BEAKER) (test code = 362) 3.40 ng/mL >=7.00 L Millinery Teacher ID - NTPLactate dehydrogenase (LDH)2020-01-16 12:57:00 Test Item Value Reference Range Interpretation Comments LDH (test code = 2532-0) 250 U/L 125-220 H VALENTE (test code = VALENTE) Millinery Teacher ID - TUAN C Lab Interpretation (test Abnormal code = 22364-5) [facility] PeninsulaLACTATE DEHYDROGENASE (LDH)2020-01-16 12:57:00 Test Item Value Reference Range Interpretation Comments LACTATE DEHYDROGENASE (BEAKER) (test 250 U/L 125-220 H code = 635) Millinery Teacher ID - TUAN CRETICULOCYTE [id number] 12:44:00 Test Item Value Reference Range Interpretation Comments RETICULOCYTE COUNT PCT (BEAKER) (test 5.0 % 0.5-1.7 H code = 575) Millinery Teacher ID - JohnHIV-1 Antigen with HIV-1/2 [id number] 12:17:00 Test Item Value Reference Range Interpretation Comments HIV-1 Antigen with HIV Nonreactive Nonreactive 1&2 Antibody (test code = 81551-7) VALENTE (test code = VALENTE) Millinery Teacher [facility] TUAN C Lab Interpretation (test Normal code = 76422-6) [facility] PeninsulaHIV-1 ANTIGEN WITH HIV-1/2 [id number] 12:17:00 Test Item Value Reference Range Interpretation Comments HIV-1 ANTIGEN WITH HIV 1\\T\\2 Nonreactive Nonreactive ANTIBODY (2) (BEAKER) (test code = 2586) Millinery Teacher ID - TUAN LEfxhushpexr5446-04-32 12:02:00 Test Item Value Reference Range Interpretation Comments Haptoglobin (test code = <8 14-258 L 4542-7) VALENTE (test code = VALENTE) Millinery Teacher MS - TUAN C Lab Interpretation (test Abnormal code = 89232-8) [facility] PeninsulaHAPTOGLOBIN2020-06-21 12:02:00 Test Item Value Reference Range Interpretation Comments HAPTOGLOBIN (BEAKER) (test code = < mg/dL 14-258 L 366) Millinery Teacher ID - TUAN CHemoglobin [id number] 09:01:00 Test Item Value Reference Range Interpretation Comments Hemoglobin A1C (test code = 4548-4) <3.8 4.3-6.1 L Lab Interpretation (test code = Abnormal 95455-1) [facility] PeninsulaHEMOGLOBIN [id number] 09:01:00 Test Item Value Reference Range Interpretation Comments HEMOGLOBIN A1C (BEAKER) (test code = < % 4.3-6.1 L 368) U/S, ABDOMINAL, WITH [id number] 07:32:00Referring: Dr. Rowdy Mccarthy Reason for exam:->liver [...] MDReport Verified Date/Time: 01/16/2020 07:32:01 Reading Location: [address] Transitional Reading Room US abdominal with psujfoo8746-31-73 07:32:00Interface, External Ris In - 01/16/2020 7:34 [...] Verified Date/Time: 01/16/2020 07:32:01 Reading Location: [address] [facility] [id number] 04:41:00 Test Item Value Reference Range Interpretation [...] S NOT APPLICABLE FOR DIALYSIS PATIEN TS. Millinery Teacher ID Mercedes Goetzimen moderately xrirhikIUYVYHZUE0312-39-30 04:38:00 Test Item Value Reference Range Interpretation Comments MAGNESIUM (BEAKER) (test code = 2.3 mg/dL 1.6-2.6 627) Millinery Teacher MABLE MEYER LHEPATIC FUNCTION [id number] 04:38:00 Test Item Value Reference Range Interpretation [...] (test code = 9 U/L 6-55 347) Millinery Teacher MABLE Jane moderately ictericPROTHROMBIN TIME/[id number] 04:36:00 Test Item Value Reference Range Interpretation [...] mechanical heart valves.CBC W/PLT COUNT & AUTO [id number] 04:29:00 Test Item Value Reference Range Interpretation [...] (BEAKER) (test code = 2801) Carotid doppler qkhmmeizs4965-91-56 00:34:03Ejection FractionSLEH ECHO HEARTLAB MKCKESSON CPACSRight Impression1. [...] AM CDTPV LAB - Carotid Duplex Study [facility] Patient Name CICI CALDERON Date of Study 01/15/2020 ALYSE Age 64 Visit Number [id number] Gender Female Accession Number [id number] Date of 1955 Referring [facility] Room Number 1515 Physician Swimmer Herbert Lechuga Interpreting Chelsea Resendez T Physician [...] + + + - Additional Measurements:ICAPSV/CCAPSV 0.96.ICAEDV/CCAEDV 1.52.[facility] PeninsulaBlood typing, automated - - at seperate draw time from initial type and [id number] 20:34:00 Test Item Value Reference Range Interpretation Comments ABO/RH AUTOMATED (BEAKER) (test A POSITIVE code = 2260) [facility] PeninsulaT42020-06-20 18:08:00 Test Item Value Reference Range Interpretation Comments T4, Total (test code = 4.3 ug/dL 4.9-11.7 L 3026-2) VALENTE (test code = VALENTE) Millinery Teacher ID - NTP Lab Interpretation (test Abnormal code = 67073-0) [facility] PeninsulaT42020-06-20 18:08:00 Test Item Value Reference Range Interpretation Comments T4 TOTAL (BEAKER) (test code = 895) 4.3 ug/dL 4.9-11.7 L Millinery Teacher ID - MVRNucbekui8675-32-39 18:07:00 Test Item Value Reference Range Interpretation Comments Ferritin (test code = 489.86 ng/mL 5-275 H 2276-4) VALENTE (test code = VALENTE) Millinery Teacher ID - NTP Lab Interpretation (test Abnormal code = 00584-6) [facility] PeninsulaFERRITIN2020-06-20 18:07:00 Test Item Value Reference Range Interpretation Comments FERRITIN (BEAKER) (test code = 489.86 ng/mL 5.00-275.00 H 361) Millinery Teacher ID - NTPCT, CHEST, WITHOUT [id number] 17:57:00Referring: Dr. Reno SweattFINAL REPORT CT of [...] [place] Verified Date/Time: 01/15/2020 17:57:54 Reading Location: [facility] C013X Ortho Consult Reading Room CT chest without IV [id number] 17:57:00Interface, External Ris In - 01/15/2020 6:00 [...] [place] Verified Date/Time: 01/15/2020 17:57:54 Reading Location: [facility] C013X [facility] 17:27:00 Test Item Value Reference Range Interpretation Comments TSH (test code = 76417-1) 5.549 0.350- 4.940 uIU/mL H VALENTE (test code = VALENTE) Millinery Teacher ID - DB Lab Interpretation (test Abnormal code = 44764-7) [facility] PeninsulaVitamin D, 94-[id number] 17:27:00 Test Item Value Reference Range Interpretation Comments Vitamin D 25-Hydroxy 6.2 ng/mL 6.6-49.9 L (test code = 2764) VALENTE (test code = VALENTE) Effective 05/07/2017: Reference Range ChangeNew: 6.6-49.9 ng/mL Previous: 13.0-47.8 ng/mL Recommended Vitamin D Target Range: 30.0-40.0 ng/mLOperator ID - DB Lab Interpretation (test Abnormal code = 01763-2) [facility] PeninsulaVITAMIN D, 04-[id number] 17:27:00 Test Item Value Reference Range Interpretation Comments VITAMIN D 25-OH (BEAKER) (test code 6.2 ng/mL 6.6-49.9 L = 2764) Effective 05/07/2017: Reference Range ChangeNew: 6.6-49.9 ng/mL Previous: 13.0-47.8 ng/mLRecommended Vitamin D Target Range: 30.0-40.0 ng/mLOperator ID - [id number] 17:27:00 Test Item Value Reference Range Interpretation Comments THYROID STIMULATING HORMONE 5.549 uIU/mL 0.350-4.940 H (BEAKER) (test code = 772) Millinery Teacher ID - DBALPHA FETOPROTEIN (AFP), TUMOR [id number] 17:27:00 Test Item Value Reference Range Interpretation Comments ALPHA-FETOPROTEIN (BEAKER) (test code < ng/mL <10.0 = 1094) Millinery Teacher ID - DBHepatitis B surface [id number] 17:25:00 Test Item Value Reference Range Interpretation Comments HBsAg Screen (test code Nonreactive Nonreactive = 5195-3) VALENTE (test code = VALENTE) Specimen is considered negative for HBsAg. Lab Interpretation (test Normal code = 76920-4) [facility] B surface [id number] 17:25:00 Test Item Value Reference Range Interpretation Comments Hep B S Ab (test code = 25.0 <8.0 mIU/mL H 19048-8) VALENTE (test code = VALENTE) Millinery Teacher ID - DB Lab Interpretation (test Abnormal code = 53757-8) [facility] [id number] 17:25:00 Test Item Value Reference Range Interpretation Comments Hepatitis C Ab (test code = Nonreactive Nonreactive 97995-7) VALENTE (test code = VALENTE) Millinery Teacher ID - DB Lab Interpretation (test Normal code = 61808-8) [facility] B SURFACE [id number] 17:25:00 Test Item Value Reference Range Interpretation Comments HEPATITIS B SURFACE ANTIGEN (2) Nonreactive Nonreactive (BEAKER) (test code = 2585) Specimen is considered negative for HBsAg.HEPATITIS B SURFACE [id number] 17:25:00 Test Item Value Reference Range Interpretation Comments HEPATITIS B SURFACE ANTIBODY 25.0 mIU/mL <8.0 H (BEAKER) (test code = 647) Millinery Teacher ID - DBHEPATITIS C [id number] 17:25:00 Test Item Value Reference Range Interpretation Comments HEPATITIS C ANTIBODY (BEAKER) Nonreactive Nonreactive (test code = 367) Millinery Teacher ID - DBCarcinoembryonic Antigen (CEA)2020-01-15 17:23:00 Test Item Value Reference Range Interpretation Comments CEA, SERUM (test code = 7.9 ng/mL 0-5 H 2039-6) VALENTE (test code = VALENTE) Millinery Teacher ID - DB Lab Interpretation (test Abnormal code = 59323-0) [facility] B core antibody, [id number] 17:23:00 Test Item Value Reference Range Interpretation Comments Hep B C IgM (test code = Nonreactive Nonreactive 88735-3) VALENTE (test code = VALENTE) Millinery Teacher ID - DB Lab Interpretation (test Normal code = 19263-0) [facility] [place] antibody, [id number] 17:23:00 Test Item Value Reference Range Interpretation Comments Hep A IgM (test code = Nonreactive Nonreactive 98095-6) VALENTE (test code = VLAENTE) Millinery Teacher ID - DB Lab Interpretation (test Normal code = 57263-3) [facility] PeninsulaCARCINOEMBRYONIC ANTIGEN (CEA)2020-01-15 17:23:00 Test Item Value Reference Range Interpretation Comments CARCINOEMBRYONIC ANTIGEN (BEAKER) 7.9 ng/mL 0.0-5.0 H (test code = 685) Millinery Teacher ID - DBHEPATITIS B CORE ANTIBODY, [id number] 17:23:00 Test Item Value Reference Range Interpretation Comments HEPATITIS B CORE IGM ANTIBODY Nonreactive Nonreactive (BEAKER) (test code = 645) Millinery Teacher ID - DBHEPATITIS A ANTIBODY, [id number] 17:23:00 Test Item Value Reference Range Interpretation Comments HEPATITIS A IGM ANTIBODY (BEAKER) Nonreactive Nonreactive (test code = 498) Millinery Teacher ID - DBRAD, MANDIBLE, MIN 4 [id number] 17:22:00Referring: Dr. Rowdy Zhang for exam:->liver transplant [...] MDReport Verified Date/Time: 01/15/2020 17:22:12 Reading Location: [address] Transitional Reading Room XR mandible min 4 [id number] 17:22:00Interface, External Ris In - 01/15/2020 5:24 [...] [place] Verified Date/Time: 01/15/2020 17:22:12 Reading Location: [address] Transitional [facility], 2 [id number] 17:16:00Referring: Dr. Rowdy Zhang for exam:->liver transplant [...] [place]var[place] Verified Date/Time: 01/15/2020 17:16:49 Reading Location: [address] Transitional Reading Room XR chest 2 [id number] 17:16:00Interface, External Ris In - 01/15/2020 5:19 [...] [place]var[place] Verified Date/Time: 01/15/2020 17:16:49 Reading Location: [address] Transitional Reading Room [facility] 2D Echo W/Doppler(CW/PW/Color)2020-01-15 17:15:41Ejection FractionSLEH ECHO HEARTLAB MKCKESSON CPACSInterface, External Ris In - 01/15/2020 5:15 PM C DTTransthoracic Echocardiography Report (TTE) Demographics Patient Name CICI CALDERON Date of Study 01/15/2020 ALYSE Gender Female Visit Number [id number] Race Unknown Room Number 1515 Number Date of 1955 Referring Physician Ren Hernandez MD Age 64 year(s) Swimmer Lisa Bautista [facility] Interpreting Jai Arreguin MD [...] CO: 7.05 l/min LVOT CI: 3.67 l/min/m^2[facility] HospitalCOMPREHENSIVE METABOLIC [id number] 17:06:00 Test Item Value Reference Range Interpretation [...] S NOT APPLICABLE FOR DIALYSIS PATIEN TS. Millinery Teacher ID - NTPSpecimen moderately [id number] 17:03:00 Test Item Value Reference Range Interpretation Comments Fibrinogen (test code = 3255-7) 114 mg/dl 225-434 L Lab Interpretation (test code = Abnormal 06375-2) [facility]2020[facility] 17:03:00 Test Item Value Reference Range Interpretation Comments FIBRINOGEN LEVEL (BEAKER) (test 114 mg/dl 225-434 L code = 658) [id number] 17:00:00 Test Item Value Reference Range Interpretation Comments Transferrin (test code = 102 mg/dL 174-382 L 3034-6) VALENTE (test code = VALENTE) Millinery Teacher ID - DBSpecimen moderately icteric Lab Interpretation (test Abnormal code = 27961-7) [facility], TIBC, % sat. (without ferritin)2020-01-15 17:00:00 Test Item Value Reference Range Interpretation Comments Iron (test code = 2498-4) 144.0 ug/dL 40-160 TIBC (test code = 2500-7) 129 ug/dL 250-450 L Iron % Saturation (test code 112 % 20-55 H = 2502-3) VALENTE (test code = VALENTE) Millinery Teacher ID - DB Lab Interpretation (test Abnormal code = 83679-1) [facility]SFERRIN2020-06-20 17:00:00 Test Item Value Reference Range Interpretation Comments TRANSFERRIN (BEAKER) (test code = 102 mg/dL 174-382 L 541) Millinery Teacher ID - DBSpecimen moderately ictericIRON, TIBC, % SAT. (WITHOUT FERRITIN) 2020-01-15 17:00:00 Test Item Value Reference Range Interpretation Comments IRON (BEAKER) (test code = 547) 144.0 ug/dL 40.0-160.0 TOTAL IRON BINDING CAPACITY 129 ug/dL 250-450 L (BEAKER) (test code = 769) IRON % SATURATION (2) (BEAKER) 112 % 20-55 H (test code = 2590) Millinery Teacher ID - VQAquig-5-qnkyopynnup7229-06-20 16:59:00 Test Item Value Reference Range Interpretation Comments A-1 Antitrypsin (test code = 121.20 mg/dL 90-200 1825-9) VALENTE (test code = VALENTE) Millinery Teacher ID - DB Lab Interpretation (test Normal code = 23958-9) [facility]BILIRUBIN, [id number] 16:59:00 Test Item Value Reference Range Interpretation Comments BILIRUBIN DIRECT 1.6 mg/dL 0.1-0.5 H Specimen sl ightly (BEAKER) (test code = hemoly zed 706) Millinery Teacher ID - [id number]-4-[id number] 16:59:00 Test Item Value Reference Range Interpretation Comments ALPHA-1 ANTITRYPSIN (BEAKER) 121.20 mg/dL 90.00-200.00 (test code = 502) Millinery Teacher ID - [id number] 16:58:00 Test Item Value Reference Range Interpretation Comments Ethanol Lvl (test code = <10 <=10 mg/dL 5643-2) VALENTE (test code = VALENTE) Millinery Teacher ID - DB Lab Interpretation (test Normal code = 84217-1) [facility]aPTT2020-06-20 16:58:00 Test Item Value Reference Range Interpretation Comments PTT (test code = 11929-4) 36.8 22.5- 36.0 seconds H Lab Interpretation (test code = Abnormal 08360-0) [facility]APTT2020-06-20 16:58:00 Test Item Value Reference Range Interpretation Comments PARTIAL THROMBOPLASTIN TIME 36.8 seconds 22.5-36.0 H (BEAKER) (test code = 760) [id number] 16:58:00 Test Item Value Reference Range Interpretation Comments ETHANOL (BEAKER) (test code = 400) < mg/dL <=10 Millinery Teacher ID - DBPROTHROMBIN [id number] 16:57:00 Test Item Value Reference Range Interpretation [...] is2.5-3.5 for patients wiht mechanical heart valves.CALCIUM, [id number] 16:45:00 Test Item Value Reference Range Interpretation Comments CALCIUM IONIZED (BEAKER) (test 1.08 mmol/L 1.12-1.27 L code = 698) PH, BLOOD (BEAKER) (test code = 7.38 1810) CREATININE, RANDOM [id number] 13:46:00 Test Item Value Reference Range Interpretation Comments CREATININE URINE (BEAKER) (test 280.7 mg/dL code = 375) Reference Range: No NormalsOperator ID - NTPSODIUM, RANDOM [id number] 13:46:00 Test Item Value Reference Range Interpretation Comments SODIUM URINE (BEAKER) (test code = < meq/L 243) Reference Range: No NormalsOperator ID - NTPHepatitis panel, [id number] 13:05:00 Test Item Value Reference Range Interpretation Comments Hep A IgM (test code = Nonreactive Nonreactive 26275-4) Hep B C IgM (test code = Nonreactive Nonreactive 34556-5) Hepatitis C Ab (test code = Nonreactive Nonreactive 64116-3) HBsAg Screen (test code = Nonreactive Nonreactive 5195-3) VALENTE (test code = VALENTE) Millinery Teacher ID - NTP Lab Interpretation (test Normal code = 00098-7) [facility] PeninsulaHEPATITIS PANEL, [id number] 13:05:00 Test Item Value Reference Range Interpretation Comments HEPATITIS A IGM ANTIBODY (BEAKER) Nonreactive Nonreactive (test code = 498) HEPATITIS B CORE IGM ANTIBODY Nonreactive Nonreactive (BEAKER) (test code = 645) HEPATITIS C ANTIBODY (BEAKER) Nonreactive Nonreactive (test code = 367) HEPATITIS B SURFACE ANTIGEN (2) Nonreactive Nonreactive (BEAKER) (test code = 2585) Millinery Teacher ID - NTPLipid [id number] 11:51:00 Test Item Value Reference Range Interpretation Comments Triglycerides (test 86 mg/dL code = 2571-8) Cholesterol (test code 101 mg/dL = 2093-3) HDL (test code = 12 mg/dL 2085-9) LDL Calculated (test 72 mg/dL code = 72686-4) VALENTE (test code = VALENTE) Triglyceride Reference Range: Low Risk <150 Borderline 150-199 High Risk 200-499 Very High Risk >=500 Cholesterol Reference Range: Low Risk <200 Borderline 200-239 High Risk >240 HDL Cholesterol Reference Range: Low Risk >=60 High Risk <40 LDL Cholesterol Reference Range: Optimal <100 Near Optimal 100-129 Borderline 130-159 High 160-189 Very High >=190 Millinery Teacher ID - NTPSpecimen moderately icteric [facility] PeninsulaGamma Glutamyl Transferase (GGT)2020-01-15 11:51:00 Test Item Value Reference Range Interpretation Comments GGT (test code = 2324-2) 15 U/L 9-64 VALENTE (test code = VALENTE) Millinery Teacher ID - NTPSpecimen moderately icteric Lab Interpretation (test Normal code = 85568-7) [facility] PeninsulaUric [id number] 11:51:00 Test Item Value Reference Range Interpretation Comments Uric Acid (test code = 15.7 mg/dL 2.6-7.2 H 3084-1) VALENTE (test code = VALENTE) Millinery Teacher ID - NTPSpecimen moderately icteric Lab Interpretation (test Abnormal code = 96735-7) [facility] PeninsulaURIC [id number] 11:51:00 Test Item Value Reference Range Interpretation Comments URIC ACID (BEAKER) (test code = 15.7 mg/dL 2.6-7.2 H 773) Millinery Teacher ID - NTPSpecimen moderately ictericLIPID [id number] 11:51:00 Test Item Value Reference Range Interpretation Comments TRIGLYCERIDES (BEAKER) (test code = 86 mg/dL 540) CHOLESTEROL (BEAKER) (test code = 101 mg/dL 631) HDL CHOLESTEROL (BEAKER) (test code 12 mg/dL = 976) LDL CHOLESTEROL CALCULATED (AKER) 72 mg/dL (test code = 633) Triglyceride Reference Range: Low Risk <150 Borderline 150-199 High Risk 200-499 Very High Risk >=500Cholesterol Reference Range: Low Risk <200 Borderline 200-239 High Risk >240HDL Cholesterol Reference Range: Low Risk >=60 High Risk <40LDL Cholesterol Reference Range: Optimal <100 Near Optimal 100-129 Borderline 130-159 High 160-189 Very High >=190 Millinery Teacher ID - NTPSpecimen moderately [id number] 11:51:00 Test Item Value Reference Range Interpretation Comments PHOSPHORUS (BEAKER) (test code = 4.5 mg/dL 2.3-4.7 604) Millinery Teacher ID - NTPGAMMA GLUTAMYL TRANSFERASE (GGT)2020-01-15 11:51:00 Test Item Value Reference Range Interpretation Comments GAMMA GLUTAMYL TRANSFERASE (BEAKER) 15 U/L 9-64 (test code = 364) Millinery Teacher ID - NTPSpecimen moderately ictericCBC W/PLT COUNT & AUTO [id number] 11:25:00 Test Item Value Reference Range Interpretation [...] CONCENTRATION Decreased (CELLAVISION)(BEAKER) (test code = 3438) Millinery Teacher ID - [id number] ID - Ana Laura James comments: Slide comments: [id number] 10:20:00 Test Item Value Reference Range Interpretation Comments MAGNESIUM (BEAKER) (test code = 2.2 mg/dL 1.6-2.6 627) Millinery Teacher ID - [id number] 08:57:00 Test Item Value Reference Range Interpretation Comments Ammonia (test code = 19 18- 72 mol/L 58233-1) VALENTE (test code = VALENTE) Millinery Teacher ID - NTP Lab Interpretation (test Normal code = 49053-2) [facility] PeninsulaAMMONIA2020-06-20 08:57:00 Test Item Value Reference Range Interpretation Comments AMMONIA (BEAKER) (test code = 348) 19 mol/L 18-72 Millinery Teacher ID - NTPHEPATIC FUNCTION [id number] 05:21:00 Test Item Value Reference Range Interpretation [...] (test code = 12 U/L 6-55 347) Millinery Teacher MABLE Valencia moderately ictericBASIC METABOLIC [id number] 05:15:00 Test Item Value Reference Range Interpretation [...] S NOT APPLICABLE FOR DIALYSIS PATIEN TS. Millinery Teacher MABLE Valencia moderately ictericPROTHROMBIN [id number] 04:37:00 Test Item Value Reference Range Interpretation [...] Detected Not Detected, (test code = Negative 29407-5) SARS-COV-2 [facility] PERFORMING LAB (test code = 17995-9) VALENTE (test code = Negative results do [...] of the Act. Fact Sheet for Healthcare Providers:https://www.QuotaDeck/Documents/Xper t%20Xpress%20SARS%20CoV- 2/Fact%20Sheets/3023802 %41DEYM-AYZ-3%20HEALTHCA RE%20PROVIDERS%20FACT%20 SHEET.pdf Fact Sheet for Healthcare Patients:https://www.DocuSpeak/Documents/Xpert %20Xpress%20SARS%20CoV-2 /Fact%20Sheets/3023801% 06ITCA-SJC-6%20PATIENT%2 0FACT%20SHEET.pdf Performing Laboratory:[facility] [place] [address] [facility] ([facility])2020-01-15 01:48:00 Test Item Value Reference Range Interpretation Comments SARS-COV2/RT-PCR (test Not Detected Not Detected, Negative code = 8551621) SARS-COV-2 PERFORMING LAB [facility] (test code = 2312390) Negative results do not preclude SARS-CoV-2 infection [...] of the Act.Fact Sheet for Healthcare Pro viders:https://www.Kalido.Sellf/Documents/Xpert%20Xpress%20SARS%20CoV-2/Fact%20Sh eets/302-3802%99YBGO-DNF-2%20HEALTHCARE%20PROVIDERS%20FACT%20SHEET.pdfFact Sheet for Healthcare Patients:https://www.Brand Embassy/Documents/Xpert%20Xpress%20SARS%20CoV-2/Fact%20Sheets/302-3801%20SARS-COV -2%20PATIENT%20FACT%20SHEET.pdfPerforming Laboratory:[facility], [place] [address]HNDBE METABOLIC [id number] 22:40:00 Test Item Value Reference Range Interpretation [...] S NOT APPLICABLE FOR DIALYSIS PATIEN TS. Millinery Teacher ID - DBSpecimen moderately ictericHEPATIC FUNCTION [id number] 22:39:00 Test Item Value Reference Range Interpretation [...] Specimen slightly (test code = 347) hemolyzed Millinery Teacher ID - DBSpecimen moderately ictericPROTHROMBIN TIME/[id number] 22:28:00 Test Item Value Reference Range Interpretation [...] mechanical heart valves.CBC W/PLT COUNT & AUTO [id number] 22:22:00 Test Item Value Reference Range Interpretation [...] code = 2801) ALPHA FETOPROTEIN (AFP), TUMOR [id number] 18:31:00 Test Item Value Reference Range Interpretation Comments ALPHA-FETOPROTEIN (BEAKER) (test code < ng/mL <10.0 = 1094) Millinery Teacher ID - DBBASIC METABOLIC [id number] 15:23:00 Test Item Value Reference Range Interpretation [...] S NOT APPLICABLE FOR DIALYSIS PATIEN TS. Millinery Teacher ID - BSPlease sent STATSpecimen moderately ictericHEPATIC FUNCTION [id number] 15:18:00 Test Item Value Reference Range Interpretation [...] (test code = 17 U/L 6-55 347) Millinery Teacher ID - BSPlease sent STATSpecimen moderately ictericPROTHROMBIN [...] valves.Please sent STATCBC W/PLT COUNT & AUTO [id number] 15:05:00 Test Item Value Reference Range Interpretation [...] (BEAKER) (test code = 2801) CT, ABDOMEN, [id number] 15:58:00Referring: Dr. Reno SweattFINAL REPORT CT OF [...] MDReport Verified Date/Time: 05/02/2017 15:58:35 Reading Location: [facility] C013Y CT Body Reading Room CBC W/PLT COUNT & AUTO [id number] 17:30:00 Test Item Value Reference Range Interpretation [...] code = 417) 0.00ALPHA FETOPROTEIN (AFP), TUMOR [id number] 16:31:00 Test Item Value Reference Range Interpretation Comments ALPHA-FETOPROTEIN (BEAKER) (test 3.3 ng/mL <10.0 code = 1094) Effective 06/14/2014: Reference Range ChangeNew: <10.0 Previous: 0.0-8.0 BASIC METABOLIC [id number] 16:13:00 Test Item Value Reference Range Interpretation [...] FOR DIALYSIS PATIEN TS. Specimen slightly ictericLIPID [id number] 16:13:00 Test Item Value Reference Range Interpretation [...] Very High >=190 Specimen slightly ictericHEPATIC FUNCTION [id number] 16:13:00 Test Item Value Reference Range Interpretation [...] (test code = 364) Specimen slightly ictericPROTHROMBIN [id number] 16:13:00 Test Item Value Reference Range Interpretation [...]
[2020-08-13 05:53] LABS: Absolute Lymphocytes (CBC) 0.8 K/uL (0.7-4.9); Basophils % 0.3 % (0-1.3); Hematocrit 25.6 % (36.0-45.0); Lymphocytes % 12.5 % (15.3-44.8); MPV 7.4 fL (7.6-11.3); RBC Red Blood Cell Count 2.36 M/uL (3.86-4.86)
[2020-08-13 06:13] LABS: Albumin 2.9 g/dL (3.4-5.0); Bilirubin Direct 1.8 mg/dL (0-0.2); Potassium 3.8 mmol/L (3.5-5.1); Protein, Total 6.5 g/dL (6.4-8.2)
[2020-08-13 07:16] LABS: Anisocytosis 1+; Blood Morphology Comment NOTED (NOT SEEN); Macrocytosis 1+; Platelet Estimate DECR; White Blood Cell Scan OK (OK)
[2020-08-13 07:33] LABS: Protime INR 1.23
--- NOTE | 2020-08-13 09:09 | ER ---
Nurse's Notes [facility] Name: Oleksandr Christian Age: 65 yrs Sex: Female : 1955 Arrival Date: 08/13/2020 Time: 05:03 Bed 3 Private MD: Diagnosis: Ascites Presentation: 08/13 05:24 Chief complaint: Patient states: Reports Abdominal pain due to abdominal swelling; Hx lp1 of liver cirrhosis; Reports scheduled paracentesis for Friday here in hospital day surgery, but patient states pain worsening with shortness of breath. Coronavirus screen: Client denies travel out of the [place] in the last 14 days. At this time, the client does not indicate any symptoms associated with coronavirus-19. Ebola Screen: No symptoms or risks identified at this time. Initial Sepsis Screen: Does the patient meet any 2 criteria? No. Patient's initial sepsis screen is negative. Does the patient have a suspected source of infection? No. Patient's initial sepsis screen is negative. Risk Assessment: Do you want to hurt yourself or someone else? Patient reports no desire to harm self or others. Onset of symptoms was August 13, 2020. 05:24 Method Of Arrival: Wheelchair lp1 05:24 Acuity: GAURI 3 lp1 Historical: - Allergies: 05:36 Erythromycin; lp1 05:36 Levaquin; lp1 05:36 Sulfa (Sulfonamide Antibiotics); lp1 05:36 TETRACYCLINES; lp1 - PMHx: 05:36 Anxiety; COPD; Hypertension; ARAUZ; lp1 - PSHx: 05:36 Hysterectomy; Knee surgery; lp1 - Immunization history:: Adult Immunizations up to date. - Social history:: Smoking status: Patient/guardian denies using tobacco. Screenin:37 Abuse screen: Denies threats or abuse. Denies injuries from another. Nutritional lp1 screening: No deficits noted. Tuberculosis screening: No symptoms or risk factors identified. 05:45 Fall Risk IV access (20 points). mg2 Assessment: 05:29 General: Appears in no apparent distress. uncomfortable, Behavior is calm, cooperative, rr5 appropriate for age. Pain: Complains of pain in abdomen. Neuro: Level of Consciousness is awake, alert, obeys commands, Oriented to person, place, time, situation. Cardiovascular: Capillary refill < 3 seconds Patient's skin is warm and dry. Respiratory: Airway is patent Respiratory effort is even, Respiratory pattern is regular, symmetrical. GI: Abdomen is round distended, Abdomen is tender to palpation Reports lower abdominal pain, upper abdominal pain, bloating. : No signs and/or symptoms were reported regarding the genitourinary system. EENT: No signs and/or symptoms were reported regarding the EENT system. Derm: Skin is intact, is healthy with good turgor, Skin temperature is warm. Musculoskeletal: Capillary refill < 3 seconds. 07:10 Reassessment: Patient appears in no apparent distress at this time. Patient and/or mg2 family updated on plan of care and expected duration. Pain level reassessed. Patient is alert, oriented x 3, equal unlabored respirations, skin warm/dry/pink. 08:32 Reassessment: Patient appears in no apparent distress at this time. Patient and/or ph family updated on plan of care and expected duration. Pain level reassessed. Patient is alert, oriented x 3, equal unlabored respirations, skin warm/dry/pink. Vital Signs: 05:22 BP 129 / 72; Pulse 92; Resp 18; Pulse Ox 100% on R/A; mg2 05:24 Temp 97.9(O); lp1 07:10 BP 128 / 73; Pulse 90; Resp 18; Pulse Ox 100% on R/A; mg2 08:32 BP 118 / 78; Pulse 87; Resp 18; Pulse Ox 100% on R/A; ph ED Course: 05:03 Patient arrived in ED. cl3 05:22 Garrett Mcneill RN is Primary Nurse. mg2 05:29 Marcial Valle MD is Attending Physician. mh7 05:29 Inserted saline lock: 20 gauge in left forearm, using aseptic technique. rr5 05:31 Triage completed. lp1 05:31 Arm band placed on. lp1 05:44 Patient has correct armband on for positive identification. Pulse ox on. NIBP on. Door mg2 closed. Warm blanket given. 05:45 No provider procedures requiring assistance completed. mg2 07:09 Primary Nurse role handed off by Garrett Mcneill RN eb 07:21 Kandy Felipe, FRANCISCA is Primary Nurse. ph 08:54 Attending Physician role handed off by Marcial Valle MD ma2 08:54 Fay Briseno MD is Attending Physician. ma2 09:35 IV discontinued, intact, bleeding controlled, No redness/swelling at site. Pressure ph dressing applied. Administered Medications: :34 Drug: TORadol 30 mg Route: IVP; Site: left forearm; ph 09:34 Follow up: Response: No adverse reaction ph Outcome: 09:09 Discharge ordered by MD. ma2 09:34 Discharged to home via wheelchair, with family. ph 09:34 Condition: good 09:34 Discharge instructions given to patient, Instructed on discharge instructions, follow up and referral plans. Demonstrated understanding of instructions, follow-up care. 09:35 Patient left the ED. ph Signatures: Christine Leung RN RN lp1 Kandy Felipe RN RN Fay Briseno MD MD ne2 Sarai Smith Michele, RN RN [facility] [place] Tarun Huerta RN RN rr5 Kishore Collazo3 Marcial Valle MD MD 7
--- NOTE | 2020-08-13 09:09 | EDPHYS ---
Physician Documentation [facility] Name: Oleksandr Christian Age: 65 yrs Sex: Female : 1955 Arrival Date: 08/13/2020 Time: 05:03 Bed 3 Private MD: ED Physician Fay Briseno HPI: 08/13 05:45 This 65 yrs old Female presents to ER via Wheelchair with complaints of mh7 Abdominal Swelling. 05:45 The patient presents with abdominal distention that is diffuse. mh7 05:45 Onset: The symptoms/episode began/occurred 3 day(s) ago. The symptoms do not radiate. mh7 Associated signs and symptoms: Pertinent negatives: nausea, vomiting, and diarrhea, nausea and vomiting, anorexia, blood in stools, chest pain, constipation, diarrhea, dysuria, fever, headache, hematuria, nausea, palpitations, shortness of breath, vaginal discharge, vomiting, vomiting blood. The symptoms are described as constant. Modifying factors: The symptoms are alleviated by nothing, the symptoms are aggravated by nothing. 05:46 The patient has experienced similar episodes in the past, multiple times. mh7 Historical: - Allergies: 05:36 Erythromycin; lp1 05:36 Levaquin; lp1 05:36 Sulfa (Sulfonamide Antibiotics); lp1 05:36 TETRACYCLINES; lp1 - PMHx: 05:36 Anxiety; COPD; Hypertension; ARAUZ; lp1 - PSHx: 05:36 Hysterectomy; Knee surgery; lp1 - Immunization history:: Adult Immunizations up to date. - Social history:: Smoking status: Patient/guardian denies using tobacco. ROS: 05:46 Constitutional: Negative for fever, chills, and weight loss, Eyes: Negative for injury, mh7 pain, redness, and discharge, ENT: Negative for injury, pain, and discharge, Neck: Negative for injury, pain, and swelling, Cardiovascular: Negative for chest pain, palpitations, and edema, Respiratory: Negative for shortness of breath, cough, wheezing, and pleuritic chest pain, Back: Negative for injury and pain, : Negative for injury, bleeding, discharge, and swelling, MS/Extremity: Negative for injury and deformity, Skin: Negative for injury, rash, and discoloration, Neuro: Negative for headache, weakness, numbness, tingling, and seizure, Psych: Negative for depression, anxiety, suicide ideation, homicidal ideation, and hallucinations, Allergy/Immunology: Negative for hives, rash, and allergies, Endocrine: Negative for neck swelling, polydipsia, polyuria, polyphagia, and marked weight changes, Hematologic/Lymphatic: Negative for swollen nodes, abnormal bleeding, and unusual bruising. Exam: 05:46 Constitutional: This is a well developed, well nourished patient who is awake, alert, mh7 and in no acute distress. Head/Face: Normocephalic, atraumatic. Eyes: Pupils equal round and reactive to light, extra-ocular motions intact. Lids and lashes normal. Conjunctiva and sclera are non-icteric and not injected. Cornea within normal limits. Periorbital areas with no swelling, redness, or edema. Neck: Trachea midline, no thyromegaly or masses palpated, and no cervical lymphadenopathy. Supple, full range of motion without nuchal rigidity, or vertebral point tenderness. No Meningismus. Chest/axilla: Normal chest wall appearance and motion. Nontender with no deformity. No lesions are appreciated. Cardiovascular: Regular rate and rhythm with a normal S1 and S2. No gallops, murmurs, or rubs. Normal PMI, no JVD. No pulse deficits. Respiratory: Lungs have equal breath sounds bilaterally, clear to auscultation and percussion. No rales, rhonchi or wheezes noted. No increased work of breathing, no retractions or nasal flaring. 05:46 Back: No spinal tenderness. No costovertebral tenderness. Full range of motion. Skin: Warm, dry with normal turgor. Normal color with no rashes, no lesions, and no evidence of cellulitis. MS/ Extremity: Pulses equal, no cyanosis. Neurovascular intact. Full, normal range of motion. Neuro: Awake and alert, GCS 15, oriented to person, place, time, and situation. Cranial nerves II-XII grossly intact. Motor strength 5/5 in all extremities. Sensory grossly intact. Cerebellar exam normal. Normal gait. Psych: Awake, alert, with orientation to person, place and time. Behavior, mood, and affect are within normal limits. 05:46 Abdomen/GI: Inspection: distension, that is moderate, in the abdomen diffusely, Bowel sounds: normal, in all quadrants, Palpation: abdomen is soft and non-tender, in all quadrants, Rectal exam: the exam is deferred, because of patient request, Indicators: McBurney's point is not tender, Weaver's sign is negative, Rovsing's sign is negative, Obturator sign is negative, Psoas sign is negative, Liver: is enlarged, Hernia: not appreciated. Vital Signs: 05:22 BP 129 / 72; Pulse 92; Resp 18; Pulse Ox 100% on R/A; mg2 05:24 Temp 97.9(O); lp1 07:10 BP 128 / 73; Pulse 90; Resp 18; Pulse Ox 100% on R/A; mg2 08:32 BP 118 / 78; Pulse 87; Resp 18; Pulse Ox 100% on R/A; ph MDM: 07:02 Transition of care: After a detail discussion of the patient's case, care is 7 transferred to Fay Briseno MD. 09:07 Differential diagnosis: Irritable bowel syndrome, ascietis. Differential diagnosis: ma2 gastroesophageal reflux disease. Data reviewed: vital signs, nurses notes. Counseling: I had a detailed discussion with the patient and/or guardian regarding: the historical points, exam findings, and any diagnostic results supporting the discharge/admit diagnosis, the presence of at least one elevated blood pressure reading (>120/80) during this emergency department visit, the need for outpatient follow up. Response to treatment: the patient's symptoms have markedly improved after treatment. ED course: patient has ascites and appointment tomorrow for therapeutic paracentesis, her pain is imrpoved, no abd tenderness or rebound, lab is non critical compaired to prior lab her last visit shoes creatinine of 5 and hb of 9.. . 09:09 Patient medically screened. ma2 08/13 05:21 Order name: Basic Metabolic Panel; Complete Time: 06:59 mg2 08/13 05:21 Order name: CBC with Diff; Complete Time: 07:41 mg2 08/13 05:21 Order name: Hepatic Function; Complete Time: 06:59 mg2 08/13 05:21 Order name: Lipase; Complete Time: 06:59 mg2 08/13 05:58 Order name: CBC Smear Scan; Complete Time: 07:41 EDMS 08/13 07:02 Order name: Protime (+inr); Complete Time: 07:41 [facility] 08/13 05:21 Order name: IV Saline Lock; Complete Time: 05:28 mg2 08/13 05:22 Order name: Labs collected and sent; Complete Time: : mg2 08/13 07:02 Order name: Ptt, Activated; Complete Time: 07:41 mh7 Administered Medications: 09:34 Drug: TORadol 30 mg Route: IVP; Site: left forearm; ph 09:34 Follow up: Response: No adverse reaction ph Disposition: 08/13/20 09:09 Discharged to Home. Impression: Ascites. - Condition is Stable. - Discharge Instructions: Ascites. - Medication Reconciliation Form, Thank You Letter, Antibiotic Education, Prescription Opioid Use form. - Follow up: Private Physician; When: Tomorrow; Reason: Continuance of care. Signatures: Dispatcher [employer] EDChristine Cornell RN RN 1 Kandy Felipe RN RN ph Fay Briseno MD MD mn2 Garrett Mcneill RN RN mg2 Marcial Valle MD MD 7 Corrections: (The following items were deleted from the chart) 09:35 09:09 08/13/2020 09:09 Discharged to Home. Impression: Ascites. Condition is Stable. ph Forms are Medication Reconciliation Form, Thank You Letter, Antibiotic Education, Prescription Opioid Use. Follow up: Private Physician; When: Tomorrow; Reason: Continuance of care. eileen
[2020-08-13] MEDS ORDERED: KETOROLAC 30 MG/ML INJ ONE (09:28)
[2020-08-13 09:42] VITALS: O2SAT 100
[2020-08-13 09:44] VITALS: TEMP 97.9
[2020-08-13 09:46] VITALS: BP 118/78
== END 2020-08-13 09:35 | disposition home or self-care (01) ==
LOC: ER 05:00
DX: R18.8 Other ascites (principal); I10 Essential (primary) hypertension; Z88.1 Allergy status to other antibiotic agents; Z88.2 Allergy status to sulfonamides; Z88.3 Allergy status to other anti-infective agents
CPT/HCPCS: 36415; 80048; 80076; 83690; 85025; 85610; 85730; 96374; 99283